=== PATIENT | male | born 1965 | race Caucasian/White ===

== ENCOUNTER 2022-03-14 11:32 | Emergency (ER) | payer OTHER, SELFPAY ==
[2022-03-14 11:53] VITALS: BP 115/89; PULSE 92; RESP 18; TEMP 37.6; O2SAT 96; BMI 24.3
--- NOTE | 2022-03-14 12:19 | CRLHL7_ITS ---
For Patients: As a result of the Century Cures Act, medical imaging exams and procedure reports are released immediately into your electronic medical record. You may view this report before your referring provider. If you have questions, please contact your health care provider. INDICATION: Fever. Previous exam sent (done on 01/18/22) HISTORY: Fever. COMPARISON: 03/04/2022. TECHNIQUE: Chest, 2 views. Findings: Interstitial type opacities have developed when compared with 03/04/2022. This could represent pulmonary edema, or an atypical infectious agent. The patient has a right-sided Port-A-Cath, with its tip at the SVC/RA junction. This should be correlated with any history of chemotherapy administration, and atypical infectious agents should be considered. There is no pneumothorax or deep sulcus sign. Central airway is normal. Biliary stent in the right upper quadrant, with additional catheters in the left upper quadrant. IMPRESSION: Interstitial type opacities in both lungs, new from 03/04/2022. Dictated by Vladislav Vasquez MD @ 03/14/2022 1:07:06 PM Dictated by: Vladislav Vasquez MD @ 03/14/2022 13:07:14 (Electronically Signed)
--- NOTE | 2022-03-14 12:25 | ED_ITS ---
HPI - General Adult General Time Seen by Provider: 12:24 <John Bueno MD - Last Filed: 03/14/22 13:21> Date Seen: 03/14/22 <John Bueno MD - Last Filed: 03/14/22 13:21> Chief complaint: Fever <John Bueno MD - Last Filed: 03/14/22 13:21> Stated complaint: Bronchitis, fever 103 <John Bueno MD - Last Filed: 03/14/22 13:21> Time Seen by Provider: 03/14/22 11:35 <John Bueno MD - Last Filed: 03/14/22 13:21> Source: patient <John Bueno MD - Last Filed: 03/14/22 13:21> Mode of arrival: ambulatory <John Bueno MD - Last Filed: 03/14/22 13:21> Limitations: physical limitation <John Bueno MD - Last Filed: 03/14/22 13:21> History of Present Illness HPI narrative: Patient is a 56-year-old white male 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 He sees [facility]. He last received chemotherapy on a pill either basis about 3 weeks ago, as he has had a fever on and off. He had workup here, including cultures and scanning, and no obvious infectious etiology was found in February. He was placed on Levaquin. He has also been on amoxicillin for a tooth issue. He subsequent the [facility] head CT scanning where they said there was some inflamed nodules in his lungs per the patient is , he was not restarted on antibiotics. He understands that he is in a palliative treatment mode of treatment. He feels weak, short of breath, tired, febrile, and has a cough. He has lost some weight, no chest pain, no leg swelling or clotting history. The patient's past medical history is significant for stage IV pancreatic cancer. <John Bueno MD - Last Filed: 03/14/22 13:21> Related Data Home medications: Home Medications Medication Instructions Recorded Confirmed gabapentin 300 mg capsule mg 03/14/22 hydromorphone 4 mg tablet mg 03/14/22 hwkhse-bbdjobng-pctkfko cap PO 03/14/22 24,000-76,000-120,000 unit capsule,delayed rel (Creon) lorazepam 0.5 mg tablet mg 03/14/22 ondansetron 8 mg disintegrating mg 03/14/22 tablet pantoprazole 40 mg tablet,delayed mg PO 03/14/22 release trazodone 50 mg tablet mg 03/14/22 Previous Rx's Medication Instructions Recorded levofloxacin 750 mg tablet 750 mg PO DAILY 7 Days #7 tab 03/14/22 <John Bueno MD - Last Filed: 03/14/22 13:21> Allergies/adverse reactions: Allergies Allergy/AdvReac Type Severity Reaction Status Date / Time prochlorperazine Allergy Verified 03/14/22 12:00 [From Compazine] <John Bueno MD - Last Filed: 03/14/22 13:21> Review of Systems Status of ROS: Reports: 6 or more systems reviewed and unremarkable except as noted in History and below <John Bueno MD - Last Filed: 03/14/22 13:21> [facility] Social History: Social History Smoking Status: Never smoker Do you use any of these nicotine containing products: Vaping Products and Other How often do you have a drink containing alcohol: never AUDIT-C Alcohol total score: 0 Non-prescribed substance use: denies use <John Bueno MD - Last Filed: 03/14/22 13:21> Exam Narrative: Exam Narrative: The patient has a temperature of 99.6?. Appears noncyanotic, does not appear to be working to breathe. Talks in even and unlabored sentences. O2 sat is 96% on room air HEENT is otherwise unremarkable Neck is supple Chest diminished air exchange bilaterally, he does have some slight wheezes at the bases. Heart rate and rhythm regular without murmur Abdomen benign soft, patient is very thin Extremities are no edema no calf swelling Skin exam is unremarkable, warm and dry <John Bueno MD - Last Filed: 03/14/22 13:21> Const: Vital Signs, click to edit/add: Vital Signs - 24 hr 03/14/22 11:53 03/14/22 13:00 03/14/22 13:30 Temperature 99.6 F 99.1 F Pulse Rate [Pulse Oximeter] 92 87 100 Respiratory Rate 18 Blood Pressure [Ri ght Upper Arm] 115/89 125/83 117/62 Pulse Oximetry 96 93 94 03/14/22 14:00 Temperature 99.6 F Pulse Rate [Pulse Oximeter] 82 Respiratory Rate Blood Pressure [Ri ght Upper Arm] 104/66 Pulse Oximetry 93 <John Bueno MD - Last Filed: 03/14/22 13:21> Vital Signs, click to edit/add: Vital Signs - 24 hr 03/14/22 11:53 03/14/22 13:00 03/14/22 13:30 Temperature 99.6 F 99.1 F Pulse Rate [Pulse Oximeter] 92 87 100 Respiratory Rate 18 Blood Pressure [Ri ght Upper Arm] 115/89 125/83 117/62 Pulse Oximetry 96 93 94 03/14/22 14:00 Temperature 99.6 F Pulse Rate [Pulse Oximeter] 82 Respiratory Rate Blood Pressure [Ri ght Upper Arm] 104/66 Pulse Oximetry 93 <Gerhard Clement MD - Last Filed: 03/14/22 14:08> Course Course Hospital Course: Because of the patient's cancer history, and heme being on chemotherapy last dose about 3 weeks ago, do workup for fever including a chest x-ray, blood cultures, urinalysis, blood work electrolytes. Will give him a dose of Rocephin IV and start oral Levaquin after completing his cultures. Will also check a SARs test. <John Bueno MD - Last Filed: 03/14/22 13:21> Vital Signs Vital signs: Initial Vital Signs Temperature 99.6 F 03/14/22 11:53 Temperature Source Temporal Artery Scan 03/14/22 11:53 Pulse Rate 92 03/14/22 11:53 Pulse Rhythm 03/14/22 11:53 Respiratory Rate 18 03/14/22 11:53 Blood Pressure 115/89 03/14/22 11:53 Blood Pressure Mean 97 03/14/22 11:53 Pulse Oximetry 96 03/14/22 11:53 Oxygen Delivery Method 03/14/22 11:53 Vital Signs Temperature 99.6 F 03/14/22 11:53 Pulse Rate 92 03/14/22 11:53 Respiratory Rate 18 03/14/22 11:53 Blood Pressure 115/89 03/14/22 11:53 Pulse Oximetry 96 03/14/22 11:53 Temperature 99.6 F 03/14/22 14:00 Pulse Rate 82 03/14/22 14:00 Respiratory Rate 18 03/14/22 11:53 Blood Pressure 104/66 03/14/22 14:00 Pulse Oximetry 93 03/14/22 14:00 <John Bueno MD - Last Filed: 03/14/22 13:21> Initial Vital Signs Temperature 99.6 F 03/14/22 11:53 Temperature Source Temporal Artery Scan 03/14/22 11:53 Pulse Rate 92 03/14/22 11:53 Pulse Rhythm 03/14/22 11:53 Respiratory Rate 18 03/14/22 11:53 Blood Pressure 115/89 03/14/22 11:53 Blood Pressure Mean 97 03/14/22 11:53 Pulse Oximetry 96 03/14/22 11:53 Oxygen Delivery Method 03/14/22 11:53 Vital Signs Temperature 99.6 F 03/14/22 11:53 Pulse Rate 92 03/14/22 11:53 Respiratory Rate 18 03/14/22 11:53 Blood Pressure 115/89 03/14/22 11:53 Pulse Oximetry 96 03/14/22 11:53 Temperature 99.6 F 03/14/22 14:00 Pulse Rate 82 03/14/22 14:00 Respiratory Rate 18 03/14/22 11:53 Blood Pressure 104/66 03/14/22 14:00 Pulse Oximetry 93 03/14/22 14:00 <Gerhard Clement MD - Last Filed: 03/14/22 14:08> Medical Decision Making MDM Narrative Medical decision making narrative: Patient is in a very difficult position with his cancer at a stage IV level, certainly some of his fevers and symptomology might be related the cancer itself. Would also want to rule out any infectious etiology that would be treatable, would cover him with Rocephin IV now and followed by [facility]. He needs to update his cancer doctors in the next couple of days. Will hydrate him with some saline as well. He has not appear to be in a lot of pain. Will review the studies today and disposition pending. I am not sure there was a lot to offer this patient in the hospital given he is non hypoxic able to take fluids orally. I do believe that antibiotic coverage until cultures return to be appropriate. And then follow with his doctor. Also concern would be for admitting the patient to the hospital with potential for COVID or other infectious exposure. Addendum: The patient reports that he had a CT scan at [facility] last week and was told that he may have ?bronchitis? verses cancer infiltrate in his lungs, he was not prescribed any medication. At this point his chest x-ray by my read looks like he may have infiltrates but would be more consistent with either metastatic or atypical infection. I think would be appropriate to try a dose of Rocephin and follow that with Levaquin for home for 7 days. Wiliam is not hypoxic and he is able to take oral liquids. He is not in pain. Will prescribe Levaquin for him at home. Follow up with blood cultures with his oncologist or as needed. He has an Oncology appointment to discuss chemo again on of next week. Return sooner problems or concerns. Will have colleague review his lab studies before discharge thanks <John Bueno MD - Last Filed: 03/14/22 13:21> Lab Data Labs: Lab Results 03/14/22 03/14/22 03/14/22 Range/Units 12:32 13:00 13:00 WBC 4.17 L (4.50-11.00) K/uL RBC 3.35 L (4.30-5.90) m/uL Hgb 9.1 L (13.5-17.5) gm/dL Hct 28.0 L (37.0-53.0) % MCV 84 (80-100) fL MCH 27 (26-34) pg MCHC 33 (32-36) gm/dL RDW Coeff of Félix 15.8 H (11.5-15.5) % Plt Count 287 (140-440) K/uL Neut % (Auto) 64.5 (42.0-72.0) % Lymph % (Auto) 9.8 L (20-44) % Canadian % (Auto) 20.6 H (0.0-11.0) % Eos % (Auto) 3.6 (0.0-7.0) % Baso % (Auto) 0.5 (0.0-3.0) % Neut # (Auto) 2.70 (1.7-7.0) K/uL Lymph # (Auto) 0.40 L (0.90-2.90) K/uL Canadian # (Auto) 0.90 (0.00-0.90) K/UL Eos # (Auto) 0.20 (0.00-0.50) K/uL Baso # (Auto) 0.00 (0.00-0.30) K/uL Abs Immat Gran (auto) 0.04 (0.00-0.30) K/uL Sodium 135 (135-149) mmol/L Potassium 3.6 (3.6-5.1) mmol/L Chloride 102 (96-114) mmol/L Carbon Dioxide 28 (20-32) mmol/L BUN 12 (7-30) mg/dL Creatinine 0.7 (0.5-1.5) mg/dL Estimated Creat Clear 112.64 Glucose 99 (60-115) mg/dL Calcium 8.1 L (8.4-10.6) mg/dL Total Bilirubin (0.1-1.5) mg/dL Direct Bilirubin (0.0-0.5) mg/dL AST (12-35) U/L ALT (4-50) U/L Alkaline Phosphatase (40-150) U/L Total Protein (6.0-8.3) g/dL Albumin (3.3-5.0) g/dL Urine Color Yellow (Yellow) Urine Appearance Clear (Clear) Urine pH 6.5 (5.0-8.5) Ur Specific [place] 1.020 (1.000-1.030) Urine Protein Negative (Negative) Urine Glucose (UA) Negative (Negative) Urine Ketones Negative (Negative) Urine Blood Negative (Negative) Urine Nitrite Negative (Negative) Urine Bilirubin Negative (Negative) Urine Urobilinogen 0.2 (0.2-1.0) Ur Leukocyte Esterase Negative (Negative) Urine RBC 0-2 (0-2) Urine WBC 0-2 (0-5) Ur Squamous Epith Cells Few (None-Few) Amorphous Sediment Few A (None) Urine Bacteria Few A (None) Urine Mucus Few A (None) 03/14/22 Range/Units 13:00 WBC (4.50-11.00) K/uL RBC (4.30-5.90) m/uL Hgb (13.5-17.5) gm/dL Hct (37.0-53.0) % MCV (80-100) fL MCH (26-34) pg MCHC (32-36) gm/dL RDW Coeff of Félix (11.5-15.5) % Plt Count (140-440) K/uL Neut % (Auto) (42.0-72.0) % Lymph % (Auto) (20-44) % Canadian % (Auto) (0.0-11.0) % Eos % (Auto) (0.0-7.0) % Baso % (Auto) (0.0-3.0) % Neut # (Auto) (1.7-7.0) K/uL Lymph # (Auto) (0.90-2.90) K/uL Canadian # (Auto) (0.00-0.90) K/UL Eos # (Auto) (0.00-0.50) K/uL Baso # (Auto) (0.00-0.30) K/uL Abs Immat Gran (auto) (0.00-0.30) K/uL Sodium (135-149) mmol/L Potassium (3.6-5.1) mmol/L Chloride (96-114) mmol/L Carbon Dioxide (20-32) mmol/L BUN (7-30) mg/dL Creatinine (0.5-1.5) mg/dL Estimated Creat Clear Glucose (60-115) mg/dL Calcium (8.4-10.6) mg/dL Total Bilirubin 0.5 (0.1-1.5) mg/dL Direct Bilirubin 0.4 (0.0-0.5) mg/dL AST 28 (12-35) U/L ALT 23 (4-50) U/L Alkaline Phosphatase 228 H (40-150) U/L Total Protein 6.0 (6.0-8.3) g/dL Albumin 3.0 L (3.3-5.0) g/dL Urine Color (Yellow) Urine Appearance (Clear) Urine pH (5.0-8.5) Ur Specific [place] (1.000-1.030) Urine Protein (Negative) Urine Glucose (UA) (Negative) Urine Ketones (Negative) Urine Blood (Negative) Urine Nitrite (Negative) Urine Bilirubin (Negative) Urine Urobilinogen (0.2-1.0) Ur Leukocyte Esterase (Negative) Urine RBC (0-2) Urine WBC (0-5) Ur Squamous Epith Cells (None-Few) Amorphous Sediment (None) Urine Bacteria (None) Urine Mucus (None) <John Bueno MD - Last Filed: 03/14/22 13:21> Lab Results 03/14/22 03/14/22 03/14/22 Range/Units 12:32 13:00 13:00 WBC 4.17 L (4.50-11.00) K/uL RBC 3.35 L (4.30-5.90) m/uL Hgb 9.1 L (13.5-17.5) gm/dL Hct 28.0 L (37.0-53.0) % MCV 84 (80-100) fL MCH 27 (26-34) pg MCHC 33 (32-36) gm/dL RDW Coeff of Félix 15.8 H (11.5-15.5) % Plt Count 287 (140-440) K/uL Neut % (Auto) 64.5 (42.0-72.0) % Lymph % (Auto) 9.8 L (20-44) % Canadian % (Auto) 20.6 H (0.0-11.0) % Eos % (Auto) 3.6 (0.0-7.0) % Baso % (Auto) 0.5 (0.0-3.0) % Neut # (Auto) 2.70 (1.7-7.0) K/uL Lymph # (Auto) 0.40 L (0.90-2.90) K/uL Canadian # (Auto) 0.90 (0.00-0.90) K/UL Eos # (Auto) 0.20 (0.00-0.50) K/uL Baso # (Auto) 0.00 (0.00-0.30) K/uL Abs Immat Gran (auto) 0.04 (0.00-0.30) K/uL Sodium 135 (135-149) mmol/L Potassium 3.6 (3.6-5.1) mmol/L Chloride 102 (96-114) mmol/L Carbon Dioxide 28 (20-32) mmol/L BUN 12 (7-30) mg/dL Creatinine 0.7 (0.5-1.5) mg/dL Estimated Creat Clear 112.64 Glucose 99 (60-115) mg/dL Calcium 8.1 L (8.4-10.6) mg/dL Total Bilirubin (0.1-1.5) mg/dL Direct Bilirubin (0.0-0.5) mg/dL AST (12-35) U/L ALT (4-50) U/L Alkaline Phosphatase (40-150) U/L Total Protein (6.0-8.3) g/dL Albumin (3.3-5.0) g/dL Urine Color Yellow (Yellow) Urine Appearance Clear (Clear) Urine pH 6.5 (5.0-8.5) Ur Specific [place] 1.020 (1.000-1.030) Urine Protein Negative (Negative) Urine Glucose (UA) Negative (Negative) Urine Ketones Negative (Negative) Urine Blood Negative (Negative) Urine Nitrite Negative (Negative) Urine Bilirubin Negative (Negative) Urine Urobilinogen 0.2 (0.2-1.0) Ur Leukocyte Esterase Negative (Negative) Urine RBC 0-2 (0-2) Urine WBC 0-2 (0-5) Ur Squamous Epith Cells Few (None-Few) Amorphous Sediment Few A (None) Urine Bacteria Few A (None) Urine Mucus Few A (None) 03/14/22 Range/Units 13:00 WBC (4.50-11.00) K/uL RBC (4.30-5.90) m/uL Hgb (13.5-17.5) gm/dL Hct (37.0-53.0) % MCV (80-100) fL MCH (26-34) pg MCHC (32-36) gm/dL RDW Coeff of Félix (11.5-15.5) % Plt Count (140-440) K/uL Neut % (Auto) (42.0-72.0) % Lymph % (Auto) (20-44) % Canadian % (Auto) (0.0-11.0) % Eos % (Auto) (0.0-7.0) % Baso % (Auto) (0.0-3.0) % Neut # (Auto) (1.7-7.0) K/uL Lymph # (Auto) (0.90-2.90) K/uL Canadian # (Auto) (0.00-0.90) K/UL Eos # (Auto) (0.00-0.50) K/uL Baso # (Auto) (0.00-0.30) K/uL Abs Immat Gran (auto) (0.00-0.30) K/uL Sodium (135-149) mmol/L Potassium (3.6-5.1) mmol/L Chloride (96-114) mmol/L Carbon Dioxide (20-32) mmol/L BUN (7-30) mg/dL Creatinine (0.5-1.5) mg/dL Estimated Creat Clear Glucose (60-115) mg/dL Calcium (8.4-10.6) mg/dL Total Bilirubin 0.5 (0.1-1.5) mg/dL Direct Bilirubin 0.4 (0.0-0.5) mg/dL AST 28 (12-35) U/L ALT 23 (4-50) U/L Alkaline Phosphatase 228 H (40-150) U/L Total Protein 6.0 (6.0-8.3) g/dL Albumin 3.0 L (3.3-5.0) g/dL Urine Color (Yellow) Urine Appearance (Clear) Urine pH (5.0-8.5) Ur Specific [place] (1.000-1.030) Urine Protein (Negative) Urine Glucose (UA) (Negative) Urine Ketones (Negative) Urine Blood (Negative) Urine Nitrite (Negative) Urine Bilirubin (Negative) Urine Urobilinogen (0.2-1.0) Ur Leukocyte Esterase (Negative) Urine RBC (0-2) Urine WBC (0-5) Ur Squamous Epith Cells (None-Few) Amorphous Sediment (None) Urine Bacteria (None) Urine Mucus (None) <Gerhard Clement MD - Last Filed: 03/14/22 14:08> Discharge Plan Discharge Clinical Impression: Fever, Pancreatic cancer <John Bueno MD - Last Filed: 03/14/22 13:21> Patient Disposition: Home w/ Parent or Adult <John Bueno MD - Last Filed: 03/14/22 13:21> Condition: Stable <John Bueno MD - Last Filed: 03/14/22 13:21> Instructions: Pancreatic Cancer (DC) <John Bueno MD - Last Filed: 03/14/22 13:21> Additional Instructions: Rest, fluids, Levaquin daily, appoint with oncologist as scheduled. Recheck as needed sooner than oncology appointment. <John Bueno MD - Last Filed: 03/14/22 13:21> Activity Level: Light activity <John Bueno MD - Last Filed: 03/14/22 13:21> Light activity <Gerhard Clement MD - Last Filed: 03/14/22 14:08> Discharge Diet: Regular <John Bueno MD - Last Filed: 03/14/22 13:21> Regular <Gerhard Clement MD - Last Filed: 03/14/22 14:08> Prescriptions: New levofloxacin 750 mg tablet 750 mg PO DAILY 7 Days Qty: 7 0RF No Action gabapentin 300 mg capsule 0RF hydromorphone 4 mg tablet 0RF trazodone 50 mg tablet 0RF Label Comments: TAKE 1-2 TABLETS BY MOUTH AT BEDTIME. TAKE 50MG DAILY AT BEDTIME FOR ATLEAST 7 DAYS. MAY INCREASE TO 100MG IF NEEDED. ondansetron 8 mg tablet,disintegrating 0RF lorazepam 0.5 mg tablet 0RF pantoprazole 40 mg tablet,delayed release (DR/EC) PO 0RF Label Comments: TAKE 1 TABLET BY MOUTH EVERY MORNING BEFORE BREAKFAST. Creon 24,000-76,000 -120,000 unit capsule,delayed release(DR/EC) PO 0RF Label Comments: TAKE 2 CAPSULES BY MOUTH WITH MEALS AND 1-2 CAPSULES WITH SNACKS <John Bueno MD - Last Filed: 03/14/22 13:21> Stand Alone Forms: MyHealth Info Instructions <John Bueno MD - Last Filed: 03/14/22 13:21> Assessment & Plan Assessment & Plan (1) Fever: Plan: Labs reviewed and are stable. Pt will be discharged to home per Dr. Bueno's instructions. <Gerhard Clement MD - Last Filed: 03/14/22 14:08> Medications: New levofloxacin 750 mg PO DAILY 7 days 7 tabs 0RF <John Bueno MD - Last Filed: 03/14/22 13:21> Patient Instructions: as per previous Plan Detail Assessment: as above <John Bueno MD - Last Filed: 03/14/22 13:21> Time Spent: Please review Coding section regarding the total time spent today in the care of this patient, separate from any independently billable service. Care includes but is not limited to a medically appropriate evaluation and?the?documentation?of?the care?in?the?health?record. <Gerhard Clement MD - Last Filed: 03/14/22 14:08>
[2022-03-14 12:44] LABS: Appearance Urine Clear (Clear); Bilirubin Urine Negative (Negative); Blood Urine Negative (Negative); Color Urine Yellow (Yellow); Glucose Urine Negative (Negative); Ketones Urine Negative (Negative); Leukocyte Esterase Urine Negative (Negative); Nitrite Urine Negative (Negative); Protein Urine Negative (Negative); Urobilinogen Urine 0.2 (0.2-1.0); pH Urine 6.5 (5.0-8.5)
[2022-03-14 13:00] VITALS: BP 125/83; PULSE 87; TEMP 37.3; O2SAT 93
[2022-03-14 13:03] LABS: RBC Urine 0-2 (0-2); WBC Urine 0-2 (0-5)
[2022-03-14 13:04] LABS: Amorphous Sediment Urine Few; Bacteria Urine Few; Mucus Urine Few; Squamous Epithelial Cell Urine Few (None-Few)
[2022-03-14] MEDS: 0.9 % SODIUM CHLORIDE 1000 ml 1,000 ML 6000 ML IV (13:20)
[2022-03-14 13:21] LABS: Basophils Percent Auto 0.5 % (0.0-3.0); Eosinophils Percent Auto 3.6 % (0.0-7.0); Hemoglobin* 9.1 gm/dL (13.5-17.5); Immature Granulocytes Abs Auto 0.04 K/uL (0.00-0.30); Lymphocytes Percent Auto 9.8 % (20-44); Mean Corpuscular HGB Conc 33 gm/dL (32-36); Mean Corpuscular Hemoglobin 27 pg (26-34); Mean Corpuscular Volume 84 fL (80-100); Monocytes Percent Auto 20.6 % (0.0-11.0); Neutrophils Percent Auto 64.5 % (42.0-72.0); Platelet Count* 287 K/uL (140-440); RDW Coefficient of Variation % 15.8 % (11.5-15.5); Red Blood Count 3.35 m/uL (4.30-5.90); White Blood Count* 4.17 K/uL (4.50-11.00)
[2022-03-14] MEDS: cefTRIAXone 1 GM in 0.9 % SODIUM CHLORIDE Mini-bag 100 ML IVPB (13:27)
[2022-03-14 13:30] VITALS: BP 117/62; PULSE 100; O2SAT 94
[2022-03-14] MEDS: levoFLOXacin 750 MG TABLET PO (13:30)
[2022-03-14 13:34] LABS: Slide Review Reflex No
[2022-03-14 13:37] LABS: Chloride* 102 mmol/L (96-114); Sodium* 135 mmol/L (135-149)
[2022-03-14 13:38] LABS: Potassium* 3.6 mmol/L (3.6-5.1)
[2022-03-14 13:39] LABS: Bilirubin Direct* 0.4 mg/dL (0.0-0.5); Bilirubin Total* 0.5 mg/dL (0.1-1.5)
[2022-03-14 13:40] LABS: Alanine Aminotransferase* 23 U/L (4-50); Alkaline Phosphatase* 228 U/L (40-150); Aspartate Amino Transferase* 28 U/L (12-35); Creatinine* 0.7 mg/dL (0.5-1.5); Est. Creatinine Clearance* 112.64; Estimated Glomerular Filt Rate 107.47
[2022-03-14 13:41] LABS: Blood Urea Nitrogen* 12 mg/dL (7-30); Calcium* 8.1 mg/dL (8.4-10.6); Carbon Dioxide* 28 mmol/L (20-32); Glucose* 99 mg/dL (60-115)
[2022-03-14 14:00] VITALS: BP 104/66; PULSE 82; TEMP 37.6; O2SAT 93
[2022-03-14 14:02] LABS: SARS PCR* Negative SARS-CoV-2 (Negative)
[2022-03-14 14:30] VITALS: BP 124/79; PULSE 80; RESP 24; O2SAT 93
[2022-03-14 15:00] VITALS: BP 122/84; PULSE 84; RESP 26; O2SAT 92
[2022-03-14] MEDS: HEPARIN 500 UNIT/5 ML SYRINGE IVF (15:05)
== END 2022-03-14 15:15 ==
PROVIDERS: Emergency Provider Family Medicine
DX: R50.9 Fever, unspecified (principal); C25.3 Malignant neoplasm of pancreatic duct
CPT/HCPCS: 96365; 36415; 71046; 80048; 80076; 81001; 85025; 87040; 87086; 87635; 99282; 99284; A9270; J0696; J1642; J7030

== ENCOUNTER 2022-05-24 12:57 | Outpatient (CLI) | payer OTHER, SELFPAY | END 2022-05-24 12:58 | disposition home or self-care (01) | LOC: AMB 06-07 07:52 | PROVIDERS: Visit Provider Emergency Medicine | DX: M54.9 Dorsalgia, unspecified (principal) | CPT/HCPCS: A0425; A0427 ==

== ENCOUNTER 2022-05-24 13:18 | Emergency (ER) | payer OTHER, SELFPAY ==
[2022-05-24 13:21] VITALS: BP 121/84; PULSE 73; RESP 18; TEMP 36.1; O2SAT 100; BMI 24.5
[2022-05-24] MEDS: LIDOCAINE/PRILOCAINE 2.5-2.5% CREAM 1 APPLIC TOPICAL (13:25)
--- NOTE | 2022-05-24 14:05 | CRLHL7_ITS ---
For Patients: As a result of the Century Cures Act, medical imaging exams and procedure reports are released immediately into your electronic medical record. You may view this report before your referring provider. If you have questions, please contact your health care provider. INDICATION: Right-sided pain. History of pancreatic cancer. COMPARISON: The most recent available study of March 05, 2022 TECHNIQUE: CT examination of the abdomen and pelvis was performed following the uneventful intravenous administration of 79 cc of Isovue 370. Thin section axial images were obtained from the lung bases through the pubic symphysis. Oral contrast was not administered. Please note that all CT scans at this facility use dose modulation, iterative reconstruction, and/or weight-based dosing when appropriate to reduce radiation dose to as low as reasonably achievable. FINDINGS: LUNG BASES: Lung bases appear normal. No pleural effusion.The heart size is normal at the lung bases. LIVER/BILIARY SYSTEM:The liver is normal in size and configuration. There is no focal mass and there is no intra- or extra hepatic biliary ductal dilatation.There is pneumobilia. A stent is seen within the common duct traversing the sphincter bony and ending in the duodenum. This is unchanged in position. The stent appears to be patent. ADRENALS: Normal KIDNEYS, URETERS and BLADDER:The kidneys appear normal without focal mass. There is no definite hydronephrosis or hydroureter. A 2 millimeter calculus is seen at the right ureterovesical junction on series 2, image 129. This was not present previously. SPLEEN:Normal appearance. PANCREAS: Extensive posttreatment changes associated with the pancreas. This is similar to the prior study. There is no measurable macroscopic mass. A stent traverses the pancreatic head. RETROPERITONEUM and MESENTERY: Left gonadal vein embolization as previously noted. GASTROINTESTINAL SYSTEM: There are drainage catheters in the stomach. One of these has flipped up into the EG junction. There appear to terminate in the left flank near the splenic hilus and there is no collection in this area. PELVIS: No mass, adenopathy or free fluid. OSSEOUS STRUCTURES and ABDOMINAL WALL: No destructive process of bone.No significant abdominal wall defect. OTHER: No free fluid or free air. IMPRESSION: 1. There is a 2 millimeter calcified calculus at the right ureterovesical junction which was not present previously. There is no significant hydronephrosis or hydroureter. The kidneys and urinary system are otherwise unremarkable. 2. Unchanged hepatic and pancreatic findings associated with known treated pancreatic cancer. The biliary stent is in place and appears to be patent. Pneumobilia. The appearance is similar to the prior study without a new or progressive finding. 3. Drainage catheter is identified within the stomach which appears to terminate in the left flank near the splenic hilus. There is no collection identified at the terminus of the catheters. One of the catheters has flipped up into the EG junction. It was previously in the corpus. 4. Other nonacute appearing findings as above Please note that all CT scans at this facility use dose modulation, iterative reconstruction, and/or weight-based dosing when appropriate to reduce radiation dose to as low as reasonably achievable. Dictated by Jewel Hernández MD @ 05/24/2022 2:51:07 PM (Electronically Signed)
[2022-05-24 14:34] LABS: Lactate* 0.9 mmol/L (0.5-1.9)
[2022-05-24 14:38] LABS: Appearance Urine Clear (Clear); Bilirubin Urine Negative (Negative); Blood Urine 2+ (Negative); Color Urine Yellow (Yellow); Glucose Urine Negative (Negative); Ketones Urine Negative (Negative); Leukocyte Esterase Urine Negative (Negative); Nitrite Urine Negative (Negative); Protein Urine Negative (Negative); Specific Gravity Urine 1.025 (1.000-1.030); Urobilinogen Urine 0.2 (0.2-1.0)
[2022-05-24 14:42] LABS: Basophils Percent Auto 0.2 % (0.0-3.0); Eosinophils Percent Auto 1.7 % (0.0-7.0); Hematocrit 34.9 % (37.0-53.0); Hemoglobin* 11.2 gm/dL (13.5-17.5); Immature Granulocytes Abs Auto 0.01 K/uL (0.00-0.30); Mean Corpuscular HGB Conc 32 gm/dL (32-36); Mean Corpuscular Hemoglobin 27 pg (26-34); Mean Corpuscular Volume 85 fL (80-100); Monocytes Percent Auto 3.7 % (0.0-11.0); Neutrophils Percent Auto 85.2 % (42.0-72.0); Platelet Count* 173 K/uL (140-440); RDW Coefficient of Variation % 18.1 % (11.5-15.5); White Blood Count* 4.02 K/uL (4.50-11.00)
[2022-05-24 14:46] LABS: Slide Review Reflex No
[2022-05-24] MEDS: HYDROmorphone 0.5 mg/0.5 ml inj IVP (14:48)
[2022-05-24] MEDS: ONDANSETRON 2 MG/ML inj 4 MG IVP (14:48)
[2022-05-24 14:49] LABS: Bacteria Urine Few; Mucus Urine Moderate; RBC Urine 25-50 (0-2); Squamous Epithelial Cell Urine Few (None-Few)
[2022-05-24 14:52] VITALS: O2SAT 100
[2022-05-24 14:53] LABS: Chloride* 103 mmol/L (96-114)
[2022-05-24 14:54] LABS: Albumin* 4.1 g/dL (3.3-5.0); Sodium* 135 mmol/L (135-149)
[2022-05-24 14:57] LABS: Alkaline Phosphatase* 262 U/L (40-150); Aspartate Amino Transferase* 29 U/L (12-35); Bilirubin Direct* 0.3 mg/dL (0.0-0.5); Bilirubin Total* 0.4 mg/dL (0.1-1.5); Carbon Dioxide* 25 mmol/L (20-32); Creatinine* 0.8 mg/dL (0.5-1.5); Est. Creatinine Clearance* 97.38; Estimated Glomerular Filt Rate 103 ml/min; Total Protein* 7.7 g/dL (6.0-8.3)
[2022-05-24 14:58] LABS: Alanine Aminotransferase* 34 U/L (4-50); Blood Urea Nitrogen* 18 mg/dL (7-30); Calcium* 8.6 mg/dL (8.4-10.6); Glucose* 106 mg/dL (60-115)
[2022-05-24 15:00] LABS: C Reactive Protein* 0.5 mg/dL (0.5-1.0)
[2022-05-24 15:08] LABS: Lipase* < 10 U/L (23-300)
[2022-05-24 16:00] VITALS: BP 114/74
--- NOTE | 2022-05-24 16:57 | ED.GENADULT ---
HPI - General Adult General Date Seen: 05/24/22 Chief complaint: Back Injury/Pain Stated complaint: Lower Back Pain Time Seen by Provider: 05/24/22 13:37 Source: patient History of Present Illness HPI narrative: Patient is a 57 year old male with underlying stage IV pancreatic cancer. He had sudden onset of severe right flank pain well at home this afternoon. He says he was just sitting down when this started. He says it was severe at onset and then became more more severe to the point that he vomited a couple of times. He called his and then came in by EMS. They gave him pain medication and it settle down quite a bit. He is comfortable now but says it is still there in the background. His nausea has settled down as well. He denies any urinary symptoms such as hematuria or dysuria, he does note that he has a remote history of kidney stones. He is worried that this might represent bony mets from his pancreatic cancer, but does say that he has had routine surveillance at [facility] for his cancer and does not know of any bony mets. He denies chest pain or difficulty breathing. He has not had fevers. Until this pain started he had been feeling in his usual state of health. He is on an investigational drug per [facility] and says that his cancer has been stable. Related Data Home Medications Medication Instructions Recorded Confirmed gabapentin 300 mg capsule mg 03/14/22 hydromorphone 4 mg tablet mg 03/14/22 [id number] cap PO 03/14/22 24,000-76,000-120,000 unit capsule,delayed rel (Creon) lorazepam 0.5 mg tablet mg 03/14/22 ondansetron 8 mg disintegrating mg 03/14/22 tablet pantoprazole 40 mg tablet,delayed mg PO 03/14/22 release trazodone 50 mg tablet mg 03/14/22 Previous Rx's Medication Instructions Recorded levofloxacin 750 mg tablet 750 mg PO DAILY 7 days #7 tabs 03/14/22 Allergies Allergy/AdvReac Type Severity Reaction Status Date / Time prochlorperazine Allergy Verified 05/24/22 14:35 [From Compazine] Review of Systems Status of ROS: Reports: 10 or more systems reviewed and unremarkable except as noted in History and below PFSH PFSH Social History Smoking Status: Never smoker Do you use any of these nicotine containing products: None, Vaping Products and Other Second hand tobacco smoke exposure: No How often do you have a drink containing alcohol: never AUDIT-C Alcohol total score: 0 Non-prescribed substance use: denies use Exam Narrative: Exam Narrative: Vital signs as noted above. In general, an alert, thin in somewhat fatigued-appearing male, looks comfortable. Head: Normocephalic, atraumatic. Eyes: Pupils are equal reactive. Extraocular movements are full. Conjunctivae are normal. ENT: Mucous membranes are moist. Throat is normal. Neck: Supple without lymphadenopathy. Heart: Regular rate and rhythm. No murmur or rub. Lungs: Clear bilaterally. No increased work of breathing, crackles or wheezes. Back: Nontender to palpation. Abdomen: Soft and nontender. Extremities: Well perfused. No edema. No calf tenderness. Pulses intact. Neurologic: Patient is alert and oriented to person and place. Speech is fluent. Face is symmetric. Moves all extremities equally. Affect: Normal. Skin: Warm and dry. Well perfused. Const: Vital Signs, click to edit/add: Vital Signs - 24 hr 05/24/22 13:21 05/24/22 14:52 Temperature 96.9 F L Pulse Rate [Right Pulse Oximeter] 73 Respiratory Rate 18 Blood Pressure [Ri ght Upper Arm] 121/84 Pulse Oximetry 100 100 Oxygen Delivery Me thod Room Air Course Course Hospital Course: Patient was reasonably comfortable when I 1st saw him, but did require more pain medication a little while later. We accessed his port and he had Dilaudid as well as Zofran. He remained comfortable throughout the rest of his ER stay. I did order labs, I looked at his CT scan from February of this year, at that time he did not have any kidney stones in either kidney, and therefore I elected to do a CT scan with contrast thinking that it was relatively unlikely his symptoms were due to kidney stones since he did not have any at that time. Other considerations included complications related to his pancreatic cancer, pancreatic stent, perforated viscus, bowel obstruction, musculoskeletal pain, aortic pathology. His labs were really pretty unremarkable. His white blood cell count is a tiny bit low at 4, hemoglobin is 11.2, platelets are normal. Electrolytes are entirely within normal limits, BUN creatinine are normal and LFTs are normal with the exception of an alk phos of 262. CRP was 0.5, lipase was less than 10. Urinalysis was notable for 2+ blood and 25-50 white blood cells, and review of his CT scan by my review showed a 2 mm stone at the UVJ on the right. No significant hydronephrosis. Final read from the radiologist of his CT scan likewise notes a 2 mm stone at the right UVJ as well as the following findings:IMPRESSION: 1. There is a 2 millimeter calcified calculus at the right ureterovesical junction which was not present previously. There is no significant hydronephrosis or hydroureter. The kidneys and urinary system are otherwise unremarkable. 2. Unchanged hepatic and pancreatic findings associated with known treated pancreatic cancer. The biliary stent is in place and appears to be patent. Pneumobilia. The appearance is similar to the prior study without a new or progressive finding. 3. Drainage catheter is identified within the stomach which appears to terminate in the left flank near the splenic hilus. There is no collection identified at the terminus of the catheters. One of the catheters has flipped up into the EG junction. It was previously in the corpus. 4. Other nonacute appearing findings as above I have discussed all this with the patient. He is relieved that his pain is not related to his cancer. At this time I think it is reasonable to let him go. He says he can take ibuprofen so I have encouraged him to take a couple of doses of ibuprofen a day and then used his Dilaudid which he has early prescribed for cancer related reasons as needed for uncontrolled pain. This stone is small and I would anticipate it will pass on its own, but if he has severe uncontrolled pain, fever, or other new symptoms return to the emergency department. Strain urine, push fluids. Vital Signs Vital signs: Initial Vital Signs Temperature 96.9 F L 05/24/22 13:21 Temperature Source Temporal Artery Scan 05/24/22 13:21 Pulse Rate 73 05/24/22 13:21 Respiratory Rate 18 05/24/22 13:21 Blood Pressure 121/84 05/24/22 13:21 Blood Pressure Mean 96 05/24/22 13:21 Blood Pressure Position Sitting 05/24/22 13:21 Pulse Oximetry 100 05/24/22 13:21 Oxygen Delivery Method 05/24/22 13:21 Vital Signs Temperature 96.9 F L 05/24/22 13:21 Pulse Rate 73 05/24/22 13:21 Respiratory Rate 18 05/24/22 13:21 Blood Pressure 121/84 05/24/22 13:21 Pulse Oximetry 100 05/24/22 13:21 Oxygen Delivery Method 05/24/22 13:21 Temperature 96.9 F L 05/24/22 13:21 Pulse Rate 73 05/24/22 13:21 Respiratory Rate 18 05/24/22 13:21 Blood Pressure 121/84 05/24/22 13:21 Pulse Oximetry 100 05/24/22 14:52 Oxygen Delivery Method 05/24/22 13:21 Medical Decision Making Lab Data Labs: Lab Results 05/24/22 05/24/22 05/24/22 Range/Units 14:10 14:23 14:23 WBC 4.02 L (4.50-11.00) K/uL RBC 4.10 L (4.30-5.90) m/uL Hgb 11.2 L (13.5-17.5) gm/dL Hct 34.9 L (37.0-53.0) % MCV 85 (80-100) fL MCH 27 (26-34) pg MCHC 32 (32-36) gm/dL RDW Coeff of Félix 18.1 H (11.5-15.5) % Plt Count 173 (140-440) K/uL Neut % (Auto) 85.2 H (42.0-72.0) % Lymph % (Auto) 9.0 L (20-44) % [place] % (Auto) 3.7 (0.0-11.0) % Eos % (Auto) 1.7 (0.0-7.0) % Baso % (Auto) 0.2 (0.0-3.0) % Neut # (Auto) 3.40 (1.7-7.0) K/uL Lymph # (Auto) 0.40 L (0.90-2.90) K/uL [place] # (Auto) 0.10 (0.00-0.90) K/UL Eos # (Auto) 0.10 (0.00-0.50) K/uL Baso # (Auto) 0.00 (0.00-0.30) K/uL Abs Immat Gran (auto) 0.01 (0.00-0.30) K/uL Sodium 135 (135-149) mmol/L Potassium 4.0 (3.6-5.1) mmol/L Chloride 103 (96-114) mmol/L Carbon Dioxide 25 (20-32) mmol/L BUN 18 (7-30) mg/dL Creatinine 0.8 (0.5-1.5) mg/dL Estimated Creat Clear 97.38 Estimated GFR 103 ml/min Glucose 106 (60-115) mg/dL Lactate (0.5-1.9) mmol/L Calcium 8.6 (8.4-10.6) mg/dL Total Bilirubin 0.4 (0.1-1.5) mg/dL Direct Bilirubin 0.3 (0.0-0.5) mg/dL AST 29 (12-35) U/L ALT 34 (4-50) U/L Alkaline Phosphatase 262 H (40-150) U/L C-Reactive Protein 0.5 (0.5-1.0) mg/dL Total Protein 7.7 (6.0-8.3) g/dL Albumin 4.1 (3.3-5.0) g/dL Lipase < 10 L (23-300) U/L Urine Color Yellow (Yellow) Urine Appearance Clear (Clear) Urine pH 6.0 (5.0-8.5) Ur Specific [place] 1.025 (1.000-1.030) Urine Protein Negative (Negative) Urine Glucose (UA) Negative (Negative) Urine Ketones Negative (Negative) Urine Blood 2+ A (Negative) Urine Nitrite Negative (Negative) Urine Bilirubin Negative (Negative) Urine Urobilinogen 0.2 (0.2-1.0) Ur Leukocyte Esterase Negative (Negative) Urine RBC 25-50 A (0-2) Urine WBC 2-5 (0-5) Ur Squamous Epith Cells Few (None-Few) Urine Bacteria Few A (None) Urine Mucus Moderate A (None) 05/24/22 Range/Units 14:23 WBC (4.50-11.00) K/uL RBC (4.30-5.90) m/uL Hgb (13.5-17.5) gm/dL Hct (37.0-53.0) % MCV (80-100) fL MCH (26-34) pg MCHC (32-36) gm/dL RDW Coeff of Félix (11.5-15.5) % Plt Count (140-440) K/uL Neut % (Auto) (42.0-72.0) % Lymph % (Auto) (20-44) % [place] % (Auto) (0.0-11.0) % Eos % (Auto) (0.0-7.0) % Baso % (Auto) (0.0-3.0) % Neut # (Auto) (1.7-7.0) K/uL Lymph # (Auto) (0.90-2.90) K/uL [place] # (Auto) (0.00-0.90) K/UL Eos # (Auto) (0.00-0.50) K/uL Baso # (Auto) (0.00-0.30) K/uL Abs Immat Gran (auto) (0.00-0.30) K/uL Sodium (135-149) mmol/L Potassium (3.6-5.1) mmol/L Chloride (96-114) mmol/L Carbon Dioxide (20-32) mmol/L BUN (7-30) mg/dL Creatinine (0.5-1.5) mg/dL Estimated Creat Clear Estimated GFR ml/min Glucose (60-115) mg/dL Lactate 0.9 (0.5-1.9) mmol/L Calcium (8.4-10.6) mg/dL Total Bilirubin (0.1-1.5) mg/dL Direct Bilirubin (0.0-0.5) mg/dL AST (12-35) U/L ALT (4-50) U/L Alkaline Phosphatase (40-150) U/L C-Reactive Protein (0.5-1.0) mg/dL Total Protein (6.0-8.3) g/dL Albumin (3.3-5.0) g/dL Lipase (23-300) U/L Urine Color (Yellow) Urine Appearance (Clear) Urine pH (5.0-8.5) Ur Specific [place] (1.000-1.030) Urine Protein (Negative) Urine Glucose (UA) (Negative) Urine Ketones (Negative) Urine Blood (Negative) Urine Nitrite (Negative) Urine Bilirubin (Negative) Urine Urobilinogen (0.2-1.0) Ur Leukocyte Esterase (Negative) Urine RBC (0-2) Urine WBC (0-5) Ur Squamous Epith Cells (None-Few) Urine Bacteria (None) Urine Mucus (None) Discharge Plan Discharge Clinical Impression: Kidney stone on right side Patient Disposition: Home, Self-Care Condition: Improved Instructions: Kidney Stones (ED) Additional Instructions: Push fluids, strain urine. Ibuprofen or Dilaudid on as needed at for pain. Stone is 2 mm and should past in the next few days without difficulty. If you are having severe persistent pain, or new symptoms such as fever, return to the emergency department. Prescriptions: No Action gabapentin 300 mg capsule hydromorphone 4 mg tablet trazodone 50 mg tablet Label Comments: TAKE 1-2 TABLETS BY MOUTH AT BEDTIME. TAKE 50MG DAILY AT BEDTIME FOR ATLEAST 7 DAYS. MAY INCREASE TO 100MG IF NEEDED. ondansetron 8 mg tablet,disintegrating lorazepam 0.5 mg tablet pantoprazole 40 mg tablet,delayed release (DR/EC) PO Label Comments: TAKE 1 TABLET BY MOUTH EVERY MORNING BEFORE BREAKFAST. Creon 24,000-76,000 -120,000 unit capsule,delayed release(DR/EC) PO Label Comments: TAKE 2 CAPSULES BY MOUTH WITH MEALS AND 1-2 CAPSULES WITH SNACKS levofloxacin 750 mg tablet 750 mg PO DAILY 7 Days Qty: 7 0RF Follow Up/Referrals: Provider,Not a Local [Primary Care Provider] - Stand Alone Forms: [facility] Info Instructions
[2022-05-24 17:08] VITALS: BP 117/66
== END 2022-05-24 17:08 | disposition home or self-care (01) ==
PROVIDERS: Emergency Provider Emergency Medicine
DX: N20.0 Calculus of kidney (principal); Z87.442 Personal history of urinary calculi
CPT/HCPCS: 36415; 74177; 80048; 80076; 81001; 83605; 83690; 85025; 86140; 87086; 94761; 96374; 96375; 99284; J1170; J2405; Q9967

== ENCOUNTER 2022-06-18 14:35 | Emergency (ER) | payer OTHER, SELFPAY ==
[2022-06-18] VITALS (25 sets, daily range): BP systolic 100–125; BP diastolic 68–84; PULSE 71–83; RESP 18; TEMP 35.9; O2SAT 96–100; BMI 24.5
--- NOTE | 2022-06-18 14:56 | ED.GENADULT ---
HPI - General Adult General Time Seen by Provider: 14:45 Date Seen: 06/18/22 Chief complaint: Back Injury/Pain Stated complaint: Back pain Time Seen by Provider: 06/18/22 14:37 Source: patient, RN notes reviewed and other (Received phone call from [place]) Mode of arrival: ambulatory Limitations: no limitations History of Present Illness HPI narrative: Patient is a 57-year-old male with known metastatic pancreatic cancer followed by [facility] coming in with back pain. I received a call from Lianne whom I presume was a mid-level covering the heme Onc service. This patient had called in with having increasing back pain. She spoke with Dr. Vladislav Zarco his oncologist whom recommended the patient come into our ER for neuro imaging. I reviewed over the phone with Rachel that we did not have MRI capabilities after hours and on weekends. We certainly do not have the ability at this time to do an MRI of his spine. She stated he would have to drive an hour and a half in the car to get down there. I reviewed with her that she should call him back, let him know that we could not do an MRI but we were happy to see and evaluate him. I did discuss with severe I do have concerns about the feasibility of transferring. [place] has been on divert most often when we have called this past week when I have been working. We are certainly happy to evaluate the patient here however. Patient reports his back pain started last Monday. He actually had been on the L pine slide at [facility] and was quite bumpy. His pain started after then. It worsens with sitting up. There is no respiratory component to this that he is noted. He does not note that it increases with breathing. He does have some baseline back pain but it is certainly worse. As I was talking to him he stated it was coming back and he pointed to an area along his left lower posterior rib cage/chest wall. There was not point tenderness and it was not something that was reproducibly tender on palpation. He has noted no fevers. He has noted no nausea or vomiting. No diarrhea. He transit toward constipation with his bowels due to his Dilaudid use. He tries to minimize this. He states they sent his last prescription of Dilaudid to [facility] pharmacy at [facility] rather than to his local pharmacy. He used his last 4 mg Dilaudid tablet this morning. He tries to not use the medicine, his typically just been taking one 4 mg tablet in the morning. He is not having any pain into his legs, no numbness tingling weakness, no bowel or bladder loss of control. He is not known to have any metastatic lesions to his spine to date. His notes he has never had any imaging of his spine to date. He was able to pull up his labs for me and he did have a normal creatinine of 0.88 on June 15. Overall, he feels a band from his mid thoracic back area at down to mid lumbar area where this pain is going throughout his back. Related Data Home Medications Medication Instructions Recorded Confirmed gabapentin 300 mg capsule mg 03/14/22 hydromorphone 4 mg tablet mg 03/14/22 tutlay-[id number]-[id number] cap PO 03/14/22 24,000-76,000-120,000 unit capsule,delayed rel (Creon) lorazepam 0.5 mg tablet mg 03/14/22 ondansetron 8 mg disintegrating mg 03/14/22 tablet pantoprazole 40 mg tablet,delayed mg PO 03/14/22 release trazodone 50 mg tablet mg 03/14/22 Previous Rx's Medication Instructions Recorded levofloxacin 750 mg tablet 750 mg PO DAILY 7 days #7 tabs 03/14/22 hydromorphone 4 mg tablet 4 mg PO Q6H PRN pain #4 tabs 06/18/22 (Dilaudid) Allergies Allergy/AdvReac Type Severity Reaction Status Date / Time prochlorperazine Allergy Verified 05/24/22 14:35 [From Compazine] Review of Systems Status of ROS: Reports: 10 or more systems reviewed and unremarkable except as noted in History and below [facility] Social History Smoking Status: Never smoker Do you use any of these nicotine containing products: None, Vaping Products and Other Second hand tobacco smoke exposure: No How often do you have a drink containing alcohol: never AUDIT-C Alcohol total score: 0 Non-prescribed substance use: denies use Exam Const: Vital Signs, click to edit/add: Vital Signs - 24 hr 06/18/22 14:42 06/18/22 14:56 06/18/22 16:04 Temperature 96.7 F L Pulse Rate 73 Pulse Rate [Right Pulse Oximeter] 79 Respiratory Rate 18 Blood Pressure Blood Pressure [Ri ght Upper Arm] 119/75 Pulse Oximetry 100 99 98 Oxygen Delivery Me thod Room Air 06/18/22 16:05 06/18/22 16:06 06/18/22 16:15 Temperature Pulse Rate 72 74 74 Pulse Rate [Right Pulse Oximeter] Respiratory Rate Blood Pressure 110/83 Blood Pressure [Ri ght Upper Arm] Pulse Oximetry 99 98 99 Oxygen Delivery Me thod 06/18/22 16:30 06/18/22 16:31 06/18/22 16:45 Temperature Pulse Rate 75 78 76 Pulse Rate [Right Pulse Oximeter] Respiratory Rate Blood Pressure 105/75 Blood Pressure [Ri ght Upper Arm] Pulse Oximetry 98 97 98 Oxygen Delivery Me thod 06/18/22 17:00 06/18/22 17:01 06/18/22 17:02 Temperature Pulse Rate 77 75 75 Pulse Rate [Right Pulse Oximeter] Respiratory Rate Blood Pressure 124/84 Blood Pressure [Ri ght Upper Arm] Pulse Oximetry 98 99 99 Oxygen Delivery Me thod 06/18/22 17:15 06/18/22 17:30 06/18/22 17:31 Temperature Pulse Rate 74 74 73 Pulse Rate [Right Pulse Oximeter] Respiratory Rate Blood Pressure 125/81 Blood Pressure [Ri ght Upper Arm] Pulse Oximetry 99 99 100 Oxygen Delivery Me thod 06/18/22 17:45 06/18/22 18:00 06/18/22 18:01 Temperature Pulse Rate 74 74 75 Pulse Rate [Right Pulse Oximeter] Respiratory Rate Blood Pressure 100/70 Blood Pressure [Ri ght Upper Arm] Pulse Oximetry 99 98 98 Oxygen Delivery Me thod 06/18/22 18:15 Temperature Pulse Rate 71 Pulse Rate [Right Pulse Oximeter] Respiratory Rate Blood Pressure Blood Pressure [Ri ght Upper Arm] Pulse Oximetry 96 Oxygen Delivery Me thod Watch the patient ambulate into room 7, had a normal gait, looked like he was ambulating quite easily. Documenting provider has reviewed patient's vital signs: yes Common normals: no apparent distress, average body habitus, oriented x3, no limitations, healthy appearing, alert and well nourished General appearance: cooperative, comfortable and well kempt Nutritional appearance: thin HENMT: Common normals: normocephalic, head/scalp atraumatic and hearing grossly normal bilaterally Head and scalp: normocephalic and atraumatic Eye: Common normals: PERRL, EOMs intact bilaterally, conjunctivae normal and no scleral icterus Conjunctiva: conjunctiva(e) normal Pupil: PERRL Neck & C-Spine: Common normals: full ROM, no lymphadenopathy, supple, no meningeal signs, no JVD and thyroid normal Thyroid: thyroid normal Chest: Common normals: inspection of chest normal and palpation of chest normal Resp: Common normals: normal respiratory effort, no retractions, no use of accessory muscles and clear to auscultation bilaterally Auscultation: clear to auscultation bilaterally Cardio: Common normals: no JVD, regular rate, regular rhythm, S1 normal heart sound, S2 normal heart sound, no gallops, no clicks, no murmurs and no rub Rate: regular rate Rhythm: regular rhythm Heart sounds: S1 normal and S2 normal Other: Port in right upper chest wall. GI: Common normals: Normal to inspection, nondistended, normoactive bowel sounds present, soft to palpation, no hepatosplenomegaly and no masses Palpation: soft, tender (Mild epigastric tenderness without rebound or guarding ) and no hepatosplenomegaly Back & Pelvis: Common normals: thoracic and lumbar spine normal to inspection, no thoracic nor lumbar tenderness, thoraco-lumbar ROM normal and straight leg raise negative bilaterally Extremity: Common normals: normal to inspection, full ROM, normal capillary refill, no joint enlargement, no clubbing, cyanosis or edema, no calf tenderness and no pedal edema Neuro: Common normals: oriented x3, moves all extremities, no focal motor deficits, no sensory deficits noted and gait normal Sensorium/orientation: alert Meningeal signs: no meningeal signs Speech: speech normal Psych: Appearance: well kempt Course Course Hospital Course: We will access his port, he has numbing medicine on currently. Will obtain blood work. We will order maintenance fluids to keep his port open, will give him 0.5 mg IV Dilaudid for pain control. We will be doing imaging. I have reviewed with him I do not have the capability to do an MRI but I think given his history that CT scan at this time should be adequate to start. I do think we should do chest abdomen pelvis CT with IV contrast looking at his pancreas. It is possible that he could be getting increasing pain from his pancreatic cancer with referred pain out into the back. Also, given that he went on this elbow pain slide, there could be a traumatic component here. Will reconstruct his lumbar and thoracic spines off the CT. He may still need to get MRI imaging of his spine if there is further concern but at this time I do not think it is emergently necessary. Reevaluation(s) Reevaluation #1: Patient's pain is reportedly returning. Will order another dose of Dilaudid, 0.5 mg IV. Upon review of his CBC, do think we should also do COVID testing. This could be due to part of his oncology process but COVID could give him significant myalgias. Time: 16:24 Reevaluation #2: Have reviewed with patient that there is nothing acute on his CT scans. We did review that MRI imaging certainly would be more sensitive to things within the marrow as I had discussed with the radiologist. He is hoping that his oncologists will potentially give him an MRI this week if need be. I do think this is reasonable. I have asked Radiology to send is images to [place]. Time: 18:52 Vital Signs Vital signs: Initial Vital Signs Temperature 96.7 F L 06/18/22 14:42 Temperature Source Temporal Artery Scan 06/18/22 14:42 Pulse Rate 79 06/18/22 14:42 Respiratory Rate 18 06/18/22 14:42 Blood Pressure 119/75 06/18/22 14:42 Blood Pressure Mean 89 06/18/22 14:42 Blood Pressure Position Sitting 06/18/22 14:42 Pulse Oximetry 100 06/18/22 14:42 Oxygen Delivery Method 06/18/22 14:42 Vital Signs Temperature 96.7 F L 06/18/22 14:42 Pulse Rate 79 06/18/22 14:42 Respiratory Rate 18 06/18/22 14:42 Blood Pressure 119/75 06/18/22 14:42 Pulse Oximetry 100 06/18/22 14:42 Oxygen Delivery Method 06/18/22 14:42 Temperature 96.7 F L 06/18/22 14:42 Pulse Rate 71 06/18/22 18:15 Respiratory Rate 18 06/18/22 14:42 Blood Pressure 100/70 06/18/22 18:01 Pulse Oximetry 96 06/18/22 18:15 Oxygen Delivery Method 06/18/22 14:42 Medical Decision Making Lab Data Labs: Lab Results 06/18/22 06/18/22 06/18/22 Range/Units 15:20 15:20 16:09 WBC 3.87 L (4.50-11.00) K/uL RBC 3.98 L (4.30-5.90) m/uL Hgb 10.9 L (13.5-17.5) gm/dL Hct 34.1 L (37.0-53.0) % MCV 86 (80-100) fL MCH 27 (26-34) pg MCHC 32 (32-36) gm/dL RDW Coeff of Félxi 16.6 H (11.5-15.5) % Plt Count 165 (140-440) K/uL Neut % (Auto) 78.1 H (42.0-72.0) % Lymph % (Auto) 13.7 L (20-44) % Branch % (Auto) 2.8 (0.0-11.0) % Eos % (Auto) 4.4 (0.0-7.0) % Baso % (Auto) 0.5 (0.0-3.0) % Neut # (Auto) 3.00 (1.7-7.0) K/uL Lymph # (Auto) 0.50 L (0.90-2.90) K/uL Branch # (Auto) 0.10 (0.00-0.90) K/UL Eos # (Auto) 0.20 (0.00-0.50) K/uL Baso # (Auto) 0.00 (0.00-0.30) K/uL Abs Immat Gran (auto) 0.02 (0.00-0.30) K/uL Sodium 137 (135-149) mmol/L Potassium 4.0 (3.6-5.1) mmol/L Chloride 102 (96-114) mmol/L Carbon Dioxide 28 (20-32) mmol/L BUN 15 (7-30) mg/dL Creatinine 0.7 (0.5-1.5) mg/dL Estimated Creat Clear 111.29 Estimated GFR 107 ml/min Glucose 85 (60-115) mg/dL Calcium 8.9 (8.4-10.6) mg/dL Total Bilirubin 0.7 (0.1-1.5) mg/dL AST 107 H (12-35) U/L ALT 85 H (4-50) U/L Alkaline Phosphatase 394 H (40-150) U/L C-Reactive Protein 3.6 H (0.5-1.0) mg/dL Total Protein 7.5 (6.0-8.3) g/dL Albumin 4.0 (3.3-5.0) g/dL Lipase < 10 L (23-300) U/L SARS-CoV-2 (PCR) Negative SARS-CoV-2 (Negative) Imaging Data CT Chest/Ab/Pelvis: Attestation: I have reviewed the pertinent imaging results. Radiologist's impression: Patient: EDNA KAISER Facility:?[facility] Patient ID:?[id number] :?1965 Study:?CT Chest/Abd/Pelvis W/ISOVUE 370 79CC-06/18/2022 4:20:00 PM Ordering Physician:?Freda Crawford Final Report: INDICATION: Severe back pain. Deep abdominal pain TECHNIQUE: CT chest, abdomen and pelvis acquired with 370 cc Isovue IV contrast. Limited evaluation secondary to no coronal/sagittal reformats. COMPARISON: CT abdomen/pelvis performed May 24, 2022. CT chest performed August 12, 2020. FINDINGS: CHEST: Cardiovascular structures: Heart size is normal. Thoracic aorta and main pulmonary artery are normal in caliber. No central PE. Mediastinum and adrienne: No mass or adenopathy. Lungs and pleura: Re- demonstration of few scattered sub 4 millimeter pulmonary nodules, including right upper lobe nodule (series 3, image 18), unchanged since August 12, 2020. No pneumothoraces or pleural effusions. Chest wall and axilla: No mass or adenopathy. Right chest wall port with catheter terminating in the superior cavoatrial junction. Bones: No suspicious bone lesions. Unremarkable for age. ABDOMEN AND PELVIS: Liver: Indeterminate segment 6 hyperdensity. Similar ill-defined 2.3 centimeter segment 7 hypodensity (series 2, image 152). Gallbladder and bile ducts: Re- demonstration of stent in the distal common bile with pneumobilia, greatest in the left hepatic lobe. Persistent mild intrahepatic ductal dilation. Pancreas: Atrophic pancreatic body/tail with prominent ductal dilation and ill-defined known pancreatic head mass. Spleen: Unremarkable. Adrenal glands: Unremarkable. Kidneys: Unremarkable. GI tract: Similar drainage catheter in the stomach which terminates in the left flank near the splenic hilum. No bowel obstruction. Vascular structures: SMV stent. Left gonadal vein embolization. No abdominal aortic aneurysm. Lymph nodes: Unremarkable. Miscellaneous: Unremarkable. No free air or significant free fluid. Pelvic Organs: Mildly distended bladder. Bones: Stable T7 vertebral body lucency. Degenerative changes of the osseous structures, including the spine. Please refer to same-day CT thoracic/lumbar spine for further evaluation. IMPRESSION: Limited evaluation secondary to no coronal/sagittal reformats. No acute intrathoracic, intra-abdominal/pelvic abnormality. Subtle ill-defined 2.3 centimeter segment 7 hypodensity. Recommend correlation with prior imaging and/or follow up with outpatient contrast enhanced MRI if medically necessary. Overall, similar scattered sub 4 millimeter pulmonary nodules. Recommend close attention on subsequent surveillance imaging. Otherwise, unchanged hepatic and pancreatic findings associated with known treated pancreatic cancer. Case discussed with Yvette Davis at 4:37 P.M on 06/18/22. Please note that all CT scans at this facility use dose modulation, iterative reconstruction, and/or weight-based dosing when appropriate to reduce radiation dose to as low as reasonably achievable. Dictated by Jaiden Canales MD @ 06/18/2022 5:34:43 PM (Electronic Signature) CT lumbar spine: Attestation: I have reviewed the pertinent imaging results. Radiologist's impression: Patient: EDNA KAIS[facility] Facility:?[facility] Patient ID:?[id number]?1965 Study:?CT Spine Lumbar -06/18/2022 4:21:05 PM Ordering Physician:Asael Crawford Final Report: INDICATION: Back pain. TECHNIQUE: CT lumbar spine without contrast. COMPARISON: May 24, 2022. FINDINGS: Vertebrae: Alignment is normal. There are no fractures or suspicious bony lesions. Discs and facet joints: Disc spaces and facets are within normal limits. Mild degenerative changes. Extraspinal findings: Please refer to same-day CT chest, abdomen, pelvis for further evaluation. IMPRESSION: Unremarkable lumbar spine CT. Please note that all CT scans at this facility use dose modulation, iterative reconstruction, and/or weight-based dosing when appropriate to reduce radiation dose to as low as reasonably achievable. Dictated by Jaiden Canales MD @ 06/18/2022 5:45:[address] thoracic spine: Attestation: I have reviewed the pertinent imaging results. Radiologist's impression: Patient: EDNA KAIS[facility] Facility:?[facility] Patient ID:?[id number]?1965 Study:?CT Spine Thoracic -06/18/2022 4:21:57 PM Ordering Physician:Asael Crawford Final Report: INDICATION: Back pain. TECHNIQUE: CT thoracic spine without contrast. COMPARISON: CT chest performed August 12, 2020.. FINDINGS: Vertebrae: Alignment is normal. There are no fractures or suspicious bony lesions. Stable T7 lucency, possibly vertebral body meningioma. Discs and facet joints: Disc spaces and facets are within normal limits. Mild degenerative changes. Extraspinal findings: Please refer to same-day CT chest abdomen pelvis for further evaluation. IMPRESSION: Unremarkable thoracic spine. No sign of acute injury. Please note that all CT scans at this facility use dose modulation, iterative reconstruction, and/or weight-based dosing when appropriate to reduce radiation dose to as low as reasonably achievable. Dictated by Jaiden Canales MD @ 06/18/2022 5:39:45 PM (Electronic Signature) Critical Care Time Critical Care Time Critical Care Time: No Discharge Plan Discharge Clinical Impression: Pancreatic cancer, Bilateral thoracic back pain, Acute lumbar back pain Patient Disposition: Home, Self-Care Condition: Stable Instructions: Acute Low Back Pain (ED), Thoracic Pain (ED), Back Pain (ED) Additional Instructions: Can continue with heat as he states it did make her back feel better. If he does not make you feel better, can always try ice. Can use the Dilaudid as you have been for pain management. Contact your oncologist on Monday for further management. If your pain is increased seen, develops new or concerning symptoms, talked to her oncologist; if they do want further imaging with MRI, we are unable to do this weekend. Activity Level: Activity as Tolerated Prescriptions: New hydromorphone [Dilaudid] 4 mg tablet 4 mg PO Q6H PRN (Reason: pain) Qty: 4 0RF No Action gabapentin 300 mg capsule hydromorphone 4 mg tablet trazodone 50 mg tablet Label Comments: TAKE 1-2 TABLETS BY MOUTH AT BEDTIME. TAKE 50MG DAILY AT BEDTIME FOR ATLEAST 7 DAYS. MAY INCREASE TO 100MG IF NEEDED. ondansetron 8 mg tablet,disintegrating lorazepam 0.5 mg tablet pantoprazole 40 mg tablet,delayed release (DR/EC) PO Label Comments: TAKE 1 TABLET BY MOUTH EVERY MORNING BEFORE BREAKFAST. Creon 24,000-76,000 -120,000 unit capsule,delayed release(DR/EC) PO Label Comments: TAKE 2 CAPSULES BY MOUTH WITH MEALS AND 1-2 CAPSULES WITH SNACKS levofloxacin 750 mg tablet 750 mg PO DAILY 7 Days Qty: 7 0RF Follow Up/Referrals: Provider,Not a Local [Primary Care Provider] - Stand Alone Forms: [email or web address] Info Instructions
--- NOTE | 2022-06-18 14:59 | CRLHL7_ITS ---
For Patients: As a result of the Century Cures Act, medical imaging exams and procedure reports are released immediately into your electronic medical record. You may view this report before your referring provider. If you have questions, please contact your health care provider. INDICATION: Back pain. TECHNIQUE: CT lumbar spine without contrast. COMPARISON: May 24, 2022. FINDINGS: Vertebrae: Alignment is normal. There are no fractures or suspicious bony lesions. Discs and facet joints: Disc spaces and facets are within normal limits. Mild degenerative changes. Extraspinal findings: Please refer to same-day CT chest, abdomen, pelvis for further evaluation. IMPRESSION: Unremarkable lumbar spine CT. Please note that all CT scans at this facility use dose modulation, iterative reconstruction, and/or weight-based dosing when appropriate to reduce radiation dose to as low as reasonably achievable. Dictated by Jaiden Canales MD @ 06/18/2022 5:45:09 PM (Electronically Signed)
--- NOTE | 2022-06-18 14:59 | CRLHL7_ITS ---
For Patients: As a result of the Century Cures Act, medical imaging exams and procedure reports are released immediately into your electronic medical record. You may view this report before your referring provider. If you have questions, please contact your health care provider. INDICATION: Back pain. TECHNIQUE: CT thoracic spine without contrast. COMPARISON: CT chest performed August 12, 2020.. FINDINGS: Vertebrae: Alignment is normal. There are no fractures or suspicious bony lesions. Stable T7 lucency, possibly vertebral body meningioma. Discs and facet joints: Disc spaces and facets are within normal limits. Mild degenerative changes. Extraspinal findings: Please refer to same-day CT chest abdomen pelvis for further evaluation. IMPRESSION: Unremarkable thoracic spine. No sign of acute injury. Please note that all CT scans at this facility use dose modulation, iterative reconstruction, and/or weight-based dosing when appropriate to reduce radiation dose to as low as reasonably achievable. Dictated by Jaiden Canales MD @ 06/18/2022 5:39:45 PM (Electronically Signed)
[2022-06-18 15:33] LABS: Basophils Percent Auto 0.5 % (0.0-3.0); Eosinophils Percent Auto 4.4 % (0.0-7.0); Hematocrit 34.1 % (37.0-53.0); Hemoglobin* 10.9 gm/dL (13.5-17.5); Immature Granulocytes Abs Auto 0.02 K/uL (0.00-0.30); Lymphocytes Percent Auto 13.7 % (20-44); Mean Corpuscular HGB Conc 32 gm/dL (32-36); Mean Corpuscular Hemoglobin 27 pg (26-34); Mean Corpuscular Volume 86 fL (80-100); Monocytes Percent Auto 2.8 % (0.0-11.0); Neutrophils Percent Auto 78.1 % (42.0-72.0); Platelet Count* 165 K/uL (140-440); RDW Coefficient of Variation % 16.6 % (11.5-15.5); Red Blood Count 3.98 m/uL (4.30-5.90); White Blood Count* 3.87 K/uL (4.50-11.00)
[2022-06-18 15:37] LABS: Slide Review Reflex No
[2022-06-18] MEDS: 0.9 % SODIUM CHLORIDE 1000 ml 1,000 ML 35 ML IV (15:42)
[2022-06-18] MEDS: HYDROmorphone 0.5 mg/0.5 ml inj IVP ×2 (15:42→16:43)
[2022-06-18] MEDS: ONDANSETRON 2 MG/ML inj 4 MG IVP (15:42)
[2022-06-18 15:51] LABS: Chloride* 102 mmol/L (96-114)
[2022-06-18 15:52] LABS: Sodium* 137 mmol/L (135-149)
--- OUTSIDE RECORDS SUMMARY | 2022-06-18 15:53 | XMS_ITS | Clinical Summary ---
:1965 Author Organization [facility] [place] [address] Care Team Providers Name Role Phone Listed, Not Primary Care Provider Unavailable Allergies No known active allergies Medications Medication Sig Dispensed Refills Start Date End Date Status omeprazole (PRILOSEC) Take 20 mg by mouth 0 Active 20 mg Delayed-Release once daily. capsuleIndications: Indications: gastroesophageal gastroesophageal reflux disease reflux disease oxyCODONE Take 1 tablet by 20 tablet 0 07/29/2020 Ac tive (ROXICODONE) 5 mg mouth every 4 hours immediate release tabletIndications: Jaundice Active Problems Problem Noted Date Hyponatremia 07/30/2020 Post-ERCP acute pancreatitis 07/30/2020 Pancreatic cancer 07/30/2020 Family History Medical History Relation Name Comments Throat cancer Father Relation Name Status Comments Father Social History Tobacco Use Types Packs/Day Years Used Date Unknown If Ever Smoked Smokeless Tobacco: Never Used Alcohol Use Standard Drinks/Week Comments Not Currently 0 (1 standard drink = 0.6 oz pure alcoho l) Sex Assigned at Date Recorded Not on file Obstetrics History Last Filed Vital Signs Vital Sign Reading Time Taken Comments Blood Pressure 140/85 08/05/2020 8:00 AM STUDIO DESIGNER Pulse 79 08/05/2020 8:00 AM STUDIO DESIGNER Temperature 36.7 ??C (98.1 ??F) 08/05/2020 8:00 AM STUDIO DESIGNER Respiratory Rate 20 08/05/2020 8:00 AM STUDIO DESIGNER Oxygen Saturation 96% 08/05/2020 8:00 AM STUDIO DESIGNER Inhaled Oxygen Concentration - - Weight 87.9 kg (193 lb 11.2 oz) 08/05/2020 8:00 AM STUDIO DESIGNER Height 175.3 cm (5' 9) 07/29/2020 10:54 PM STUDIO DESIGNER Body Mass Index 28.6 07/29/2020 10:54 PM STUDIO DESIGNER Plan of Treatment Health Maintenance Due Date Last Done Comments Tdap 1975 Depression screening for age 12+ 1976 BMI (ht and wt on same day) for age 18+ 1982 Hepatitis C screening for age 18-79 1982 Tetanus booster 1984 Colonoscopy through age 75 2009 Lipids for age 45-75 2009 Zoster (shingles) series for age 50+ (1 of 2014 2) COVID-19 vaccine series (3 - Booster for 02/16/2021 021, 12/01/2020 Pfizer series) Influenza for age 50-64 05/12/2022 Medical Devices Implanted Type Area Skid Adzer Device Shelf Model / Identifier Expiration Serial / Date Lot Stent Biliary [id number] Wallflexuncovered Metal - [id number] N /A: [facility] [id number] / Implanted: Qty: 1 on 07/29/2020 by Sabino Knight MD at [facility]ology / Bile [id number] Duct Description: 10x60 metal stent in cbd Stent Biliary [id number] Wallflexuncovered Metal - [id number] [facility] Gastroenterology 07/02/2022 [id number] / Implanted: Qty: 1 on 08/04/2020 by Rangel Cordova MD at [facility] / [id number] Results Not on filefrom Last 3 Months Insurance Payer Benefit Plan / Subscriber ID Effective Dates Phone Addre ss Type Group PREFERRED ONE PREFERRED ONE [id number] 2020-Present [address] [place] [address] Advance Directives Latest Code Status on File Code Status Date Activated Date Inactivated Comments Full Code 07/30/2020 5:23 AM 08/05/2020 1:10 PM Code Status Discussion: Discussed Full Code 07/29/2020 8:18 AM 07/29/2020 3:27 PM Code Status Discussion: Not Discussed Full Code 07/29/2020 8:18 AM 07/29/2020 8:18 AM Code Status Discussion: Not Discussed Care Teams Drug Enforcement Administration Agent Relationship Specialty Start Date End Date Listed, Not PCP - General 10/28/10 [place] [address]
[2022-06-18 15:54] LABS: Bilirubin Total* 0.7 mg/dL (0.1-1.5); Creatinine* 0.7 mg/dL (0.5-1.5); Est. Creatinine Clearance* 111.29; Estimated Glomerular Filt Rate 107 ml/min
--- OUTSIDE RECORDS SUMMARY | 2022-06-18 15:54 | XMS_ITS | Encounter Summary ---
:1965 Author Organization [place] Address [address] [place] [address]. [place] [address] Care Team Providers Name Role Phone Adrian Mills MD Primary Care Provider [phone] Adrian Mills MD Unavailable Encounter Details Date Type Department Care Team Description 11/02/2020 Travel Social History Tobacco Use Types Packs/Day Years Used Date Never Smoker Smokeless Tobacco: Never Used Alcohol Use Standard Drinks/Week Comments No 0 (1 standard drink = 0.6 oz pure alcoho l) Sex Assigned at Date Recorded Male 01/07/2021 5:29 PM CDT COVID-19 Exposure Response Date Recorded In the last month, have you been in contact with No / Unsure 11/02/2020 10:35 AM SHOCK ABSORBER INSTALLER someone who was confirmed or suspected to have Coronavirus / COVID-19? documented as of this encounter Plan of Treatment Not on filedocumented as of this encounter Visit Diagnoses Not on filedocumented in this encounter Additional Health Concerns Assessment Noted Time PHQ-9 Depression Total Score: 0 11/30/2018 9:17 AM CDT documented as of this encounter Care Teams Device Test Engineer Relationship Specialty Start Date End Date Adrian Mills MD PCP - General Family Practice 10/29/12 Adrian Mills MD Assigned PCP 08/30/20 [address] [place] [address] documented as of this encounter
--- OUTSIDE RECORDS SUMMARY | 2022-06-18 15:54 | XMS_ITS | Encounter Summary ---
:1965 Author Organization [place] Address [address] [facility] [place] [address] Care Team Providers Name Role Phone Adrian Mills MD Primary Care Provider [phone] Adrian Mills MD Unavailable Reason for Referral Rehab Therapy Integrated Services (Routine) - Closed Specialty Diagnoses / Procedures Referred By Contact Refer red To Contact Diagnoses Malignant neoplasm of pancreas, unspecified location of malignancy (H) [facility] [address] [place] [address] Phone: Fax: Referral ID Status Reason Start Date Expiration Date Visits Requ ested Visits Authorized [id number] Closed 12/25/2020 09/10/2021 365 365 Encounter Details Date Type Department Care Team Description 12/23/2020 Orders Only [facility] Elisabet Whitley Malign ant neoplasm of Clinic Derek Lilly APRN CNP pancreas, unspecified [id number] location of malignancy [place] [address] (H) (Primary Dx) [address] [phone] Social History Tobacco Use Types Packs/Day Years Used Date Never Smoker Smokeless Tobacco: Never Used Alcohol Use Standard Drinks/Week Comments No 0 (1 standard drink = 0.6 oz pure alcoho l) Sex Assigned at Date Recorded Male 01/07/2021 5:29 PM CDT COVID-19 Exposure Response Date Recorded In the last month, have you been in contact with No / Unsure 12/18/2020 1:14 PM CDT someone who was confirmed or suspected to have Coronavirus / COVID-19? documented as of this encounter Plan of Treatment Scheduled Referrals Name Type Priority Associated Diagnoses Order S chedule Wheelchair Scooter Referral Routine Malignant neoplasm of Expected: Order for DME - ONLY pancreas, unspecifie d 12/23/2020, Expires: FOR DME location of malignancy 12/23 (H) documented as of this encounter Visit Diagnoses Diagnosis Malignant neoplasm of pancreas, unspecif ied location of malignancy (H) - Primary documented in this encounter Additional Health Concerns Assessment Noted Time PHQ-9 Depression Total Score: 0 11/30/2018 9:17 AM CDT documented as of this encounter Care Teams Feeder/Folder Relationship Specialty Start Date End Date Adrian Mills MD PCP - General Family Practice 10/29/12 Adrian Mills MD Assigned PCP 08/30/20 [address] [address] [place] [address] documented as of this encounter
--- OUTSIDE RECORDS SUMMARY | 2022-06-18 15:54 | XMS_ITS | Encounter Summary ---
:1965 Author Organization [place] Address [address] [facility] [place] [address] Care Team Providers Name Role Phone Adrian Mills MD Primary Care Provider [phone] Adrian Mills MD Unavailable Reason for Visit Reason Onset Date Comments Forms 03/09/2021 [facility] Certific ation & Plan of Care [facility] Encounter Details Date Type Department Care Team Description 03/09/2021 Telephone [facility] Adrian Mills Forms ([facility] [place] [address] [address] [place], [place] [address] [facility]) [address] [phone] Social History Tobacco Use Types Packs/Day Years Used Date Never Smoker Smokeless Tobacco: Never Used Alcohol Use Standard Drinks/Week Comments No 0 (1 standard drink = 0.6 oz pure alcoho l) Sex Assigned at Date Recorded Male 01/07/2021 5:29 PM CDT documented as of this encounter Miscellaneous Notes Telephone Encounter - Rachel Montgomery - 03/11/2021 2:32 PM CDT Form faxed back to [phone]. -Rachel Montgomery Ball Thread Machine Tender Telephone Encounter - Adrian Mills MD - 03/11/2021 2:07 PM CDT Signed Adrian Mills MD Telephone Encounter - Rachel Montgomery - 03/09/2021 1:21 PM CDT Received Home Health Certification & Plan of Care - [facility], placed in PCP's in basket. Please review, sign and fax back to [phone]. documented in this encounter Plan of Treatment Not on filedocumented as of this encounter Visit Diagnoses Not on filedocumented in this encounter Additional Health Concerns Assessment Noted Time PHQ-9 Depression Total Score: 0 11/30/2018 9:17 AM CDT documented as of this encounter Care Teams Clinical Ob Relationship Specialty Start Date End Date Adrian Mills MD PCP - General Family Practice 10/29/12 Adrian Mills MD Assigned PCP 08/30/20 [address] [place] [address] documented as of this encounter
--- OUTSIDE RECORDS SUMMARY | 2022-06-18 15:54 | XMS_ITS | Encounter Summary ---
:1965 Author Organization [place] Address [address] [place] [address]. [place] [address] Care Team Providers Name Role Phone Adrian Mills MD Primary Care Provider [phone] Adrian Mills MD Unavailable Encounter Details Date Type Department Care Team Description 03/26/2021 Travel Social History Tobacco Use Types Packs/Day Years Used Date Never Smoker Smokeless Tobacco: Never Used Alcohol Use Standard Drinks/Week Comments No 0 (1 standard drink = 0.6 oz pure alcoho l) Sex Assigned at Date Recorded Male 01/07/2021 5:29 PM CDT COVID-19 Exposure Response Date Recorded In the last month, have you been in contact with No / Unsure 03/26/2021 4:08 PM CDT someone who was confirmed or suspected to have Coronavirus / COVID-19? documented as of this encounter Plan of Treatment Not on filedocumented as of this encounter Visit Diagnoses Not on filedocumented in this encounter Additional Health Concerns Assessment Noted Time PHQ-9 Depression Total Score: 0 11/30/2018 9:17 AM CDT documented as of this encounter Care Teams Repairer Wood Furniture Relationship Specialty Start Date End Date Adrian Mills MD PCP - General Family Practice 10/29/12 Adrian Mills MD Assigned PCP 08/30/20 [address] [place] [address] documented as of this encounter
--- OUTSIDE RECORDS SUMMARY | 2022-06-18 15:54 | XMS_ITS | Encounter Summary ---
:1965 Author Organization [place] Address [facility] [place] [address] Care Team Providers Name Role Phone Adrian Mills MD Primary Care Provider [phone] Adrian Mills MD Unavailable Reason for Visit Reason Comments *-*INCOMING RECORDS*-* recd records from [facility] 11/02/2020 Encounter Details Date Type Department Care Team Description 11/02/2020 Documentation Only [facility] Adrian Mills *-* INCOMING Clinic Derek Waller MD RECORDS*-* ([address] [address] [facility] [place] [place] [facility] [place] [address] [id number] Social History Tobacco Use Types Packs/Day Years Used Date Never Smoker Smokeless Tobacco: Never Used Alcohol Use Standard Drinks/Week Comments No 0 (1 standard drink = 0.6 oz pure alcoho l) Sex Assigned at Date Recorded Male 01/07/2021 5:29 PM CDT COVID-19 Exposure Response Date Recorded In the last month, have you been in contact with No / Unsure 11/02/2020 10:35 AM CALCULATION REVIEWER someone who was confirmed or suspected to have Coronavirus / COVID-19? documented as of this encounter Progress Notes Kathy Schlutz - 11/02/2020 7:37 AM CST Recd records from [facility] 11/02/2020 and forwarded to Adrian Mills for review and scanning documented in this encounter Plan of Treatment Not on filedocumented as of this encounter Visit Diagnoses Not on filedocumented in this encounter Additional Health Concerns Assessment Noted Time PHQ-9 Depression Total Score: 0 11/30/2018 9:17 AM CDT documented as of this encounter Care Teams Wind Instrument Repairer Relationship Specialty Start Date End Date Adrian Mills MD PCP - General Family Practice 10/29/12 Adrian Mills MD Assigned PCP 08/30/20 [address] [place] [address] documented as of this encounter
--- OUTSIDE RECORDS SUMMARY | 2022-06-18 15:54 | XMS_ITS | Encounter Summary ---
:1965 Author Organization [place] Address [address] [place] [address]. [place] [address] Care Team Providers Name Role Phone Adrian Mills MD Primary Care Provider [phone] Adrian Mills MD Unavailable Encounter Details Date Type Department Care Team Description 10/06/2020 Travel Social History Tobacco Use Types Packs/Day Years Used Date Never Smoker Smokeless Tobacco: Never Used Alcohol Use Standard Drinks/Week Comments No 0 (1 standard drink = 0.6 oz pure alcoho l) Sex Assigned at Date Recorded Male 01/07/2021 5:29 PM CDT COVID-19 Exposure Response Date Recorded In the last month, have you been in contact with No / Unsure 10/06/2020 3:36 PM BANK CONSULTANT someone who was confirmed or suspected to have Coronavirus / COVID-19? documented as of this encounter Plan of Treatment Not on filedocumented as of this encounter Visit Diagnoses Not on filedocumented in this encounter Additional Health Concerns Assessment Noted Time PHQ-9 Depression Total Score: 0 11/30/2018 9:17 AM CDT documented as of this encounter Care Teams Information Engineer Relationship Specialty Start Date End Date Adrian Mills MD PCP - General Family Practice 10/29/12 Adrian Mills MD Assigned PCP 08/30/20 [address] [place] [address] documented as of this encounter
--- OUTSIDE RECORDS SUMMARY | 2022-06-18 15:54 | XMS_ITS | Clinical Summary ---
:1965 Author Organization [place] Address [address] [place] [address] Care Team Providers Name Role Phone Adrian Mills MD Primary Care Provider [phone] Adrian Mills MD Unavailable Allergies Active Allergy Reactions Severity Noted Date Comments Ranitidine Diarrhea 11/23/2010 Medications Medication Sig Dispensed Refills Start Date End Date Status lidocaine-prilocaine Apply topically as 30 g 1 12/18/2020 Active (EMLA) 2.5-2.5 % needed for other external (30 prior to port creamIndications: access) Encounter for care related to Port-a-Cath HYDROmorphone Take 6 mg by mouth 0 01/03/2021 Active (DILAUDID) 4 MG tablet Active Problems Problem Noted Date Medical marijuana use 10/09/2020 Malignant neoplasm of pancreas, unspecified location o f malignancy 08/20/2020 Adjustment disorder with mixed anxiety and depressed m ood 12/04/2012 GERD (gastroesophageal reflux disease) 10/31/2012 Plantar fasciitis of right foot 10/31/2012 CARDIOVASCULAR SCREENING; LDL GOAL LESS THAN 160 10/29 Immunizations Name Administration Dates Next Due COVID-19,PF,Pfizer (12+ Yrs) 12/22/2020, 12/01/2020 FLU 6-35 months 06/15/2010 Influenza Vaccine IM > 6 months 10/02/2020, 06/20/2012, 06/11, Valent IIV4 (Alfuria,Fluzone) 06/15/2010 TD (ADULT, 7+) 03/22/2006 TDAP Vaccine (Adacel) 10/31/2012, 03/22/2006 Tdap (Adult) Unspecified Formulation 03/22/2006 Family History Medical History Relation Comments No Known Problems Daughter 1 No Known Problems Daughter 2 Cancer Father throat cancer, step father Cancer Maternal Grandmother Connective Tissue Disorder Sister MS (half sist er) Relation Status Comments Brother 1 Alive Brother 2 Alive Daughter 1 Alive Daughter 2 Alive Father Maternal Grandfather Maternal Grandmother Mother Alive Paternal Grandfather Paternal Grandmother Sister Alive Social History Tobacco Use Types Packs/Day Years Used Date Never Smoker Smokeless Tobacco: Never Used Alcohol Use Standard Drinks/Week Comments No 0 (1 standard drink = 0.6 oz pure alcoho l) Sex Assigned at Date Recorded Male 01/07/2021 5:29 PM CDT Last Filed Vital Signs Vital Sign Reading Time Taken Comments Blood Pressure 120/72 01/08/2021 3:26 PM CDT Pulse 78 01/08/2021 3:26 PM CDT Temperature 36.5 ??C (97.7 ??F) 01/08/2021 3:26 PM CDT Respiratory Rate 16 01/08/2021 3:26 PM CDT Oxygen Saturation 100% 01/08/2021 3:26 PM CDT Inhaled Oxygen Concentration - - Weight 70.1 kg (154 lb 8 oz) 01/08/2021 3:26 PM CDT Height 178.4 cm (5' 10.25) 01/08/2021 3:26 PM CDT Body Mass Index 22.01 01/08/2021 3:26 PM CDT Plan of Treatment Health Maintenance Due Date Last Done Comments ADVANCE CARE PLANNING 1965 CT COLONOGRAPHY 1965 FIT-DNA (Cologuard) 1965 FIT 1965 FLEX SIG 1965 ZOSTER IMMUNIZATION (1 of 2014 2) PREVENTIVE CARE VISIT 12/01/2019 11/30/2018, 02/05/2014, 10/31/2012 COVID-19 Vaccine (3 - 02/16/2021 12/22/2020, 12/01/2020 Booster for Pfizer series) PHQ-2 (once per calendar 09/11/2021 12/18/2020, 11/30/2018, year) 11/30/2018, Additional history exists ANNUAL REVIEW OF HM ORDERS 12/18/2021 12/18/2020 INFLUENZA VACCINE (#1) 2022 10/02/2020, 11/30/2018 (Declined), 06/20/2012, Additional history exists DTAP/TDAP/TD IMMUNIZATION 10/31/2022 10/31/2012, 03/22/2006 , (3 - Td or Tdap) 03/22/2006, Additional history exists LIPID 12/01/2023 11/30/2018, 02/05/2014, 10/31/2012 COLONOSCOPY 12/14/2028 12/14/2018, 12/14/2018 COLORECTAL CANCER 12/14/2028 SCREENING HEPATITIS C SCREENING Completed 11/30/2018 HEPATITIS B IMMUNIZATION Aged Out No long er eligible based on patient 's age to complete this topic HIV SCREENING Discontinued IPV IMMUNIZATION Aged Out No longer eligi ble based on patient 's age to complete this topic MENINGITIS IMMUNIZATION Aged Out No longe r eligible based on patient 's age to complete this topic Pneumococcal Vaccine: Aged Out No longer eligible Pediatrics (0 to 5 Years) based on patient's age and At-Risk Patients (6 to to co mplete this topic 64 Years) Insurance Payer Benefit Plan / Subscriber ID Effective Phone Address T ype Group Dates PREFERREDONE PREFERREDONE HMO [id number] 2013-Pres [phone]PO [id number] [place] [address] [facility] [id number] 2011-Pres [address] [facility] ent [id number] [place] [address] Care Teams Video Manager Relationship Specialty Start Date End Date Adrian Mills MD PCP - General Family Practice 10/29/12 Adrian Mills MD Assigned PCP 08/30/20 [address] [place] [address]
--- OUTSIDE RECORDS SUMMARY | 2022-06-18 15:54 | XMS_ITS | Encounter Summary ---
:1965 Author Organization [place] Address [address] [facility] [place] [address] Care Team Providers Name Role Phone Adrian Mills MD Primary Care Provider [phone] Adrian Mills MD Unavailable Reason for Visit Reason Onset Date Comments Orders 12/22/2020 DME wheelchair scoot er Encounter Details Date Type Department Care Team Description 12/22/2020 Telephone [facility] Geen Adrian Orders (D [place] wheelchair Clinic Derek Waller MD scooter) [address] [place], [place] [address] [phone] Social History Tobacco Use Types Packs/Day Years [...] / COVID-19? documented as of this encounter Miscellaneous Notes Telephone Encounter - Rachel Montgomery - 12/23/2020 3:20 PM CDT Elisabet Whitley updated order. -Rachel Montgomery Commercial Sales Manager Telephone Encounter - Rachel Montgomery - 12/23/2020 2:58 PM CDT Spoke with Rehab Services who needs Dr. Mills or another provider to change the Specialty Services portion of the order. They are routing a message to have it updated appropriately. Once the order is updated they will call the patient to schedule his evaluation. PT advised. -Rachel Montgomery Commercial Sales Manager Telephone Encounter - Mey Monroe - 12/22/2020 4:30 PM CDT Patient's hasn't heard from anyone regarding his DME order for Wheelchair scooter, please call patient at [phone]. Patient's doesn't care where we sent the order but he would like to go pick it upsoon. Mey Monroe [facility] Chicle Grinder Feeder documented in this encounter Plan of Treatment Not on filedocumented as of this encounter Visit Diagnoses Not on filedocumented in this encounter Additional Health Concerns Assessment Noted Time PHQ-9 Depression Total Score: 0 11/30/2018 9:17 AM CDT documented as of this encounter Care Teams Metal Ceiling Builder Relationship Specialty Start Date End Date Adrian Mills MD PCP - General Family Practice 10/29/12 Adrian Mills MD Assigned PCP 08/30/20 [address] [place] [address] documented as of this encounter
--- OUTSIDE RECORDS SUMMARY | 2022-06-18 15:54 | XMS_ITS | Encounter Summary ---
:1965 Author Organization [place] Address [address] [place] [address]. [place] [address] Care Team Providers Name Role Phone Adrian Mills MD Primary Care Provider [phone] Adrian Mills MD Unavailable Encounter Details Date Type Department Care Team Description 12/18/2020 Travel Social History Tobacco Use Types Packs/Day [...] documented as of this encounter Care Teams Category Development Manager Relationship Specialty Start Date End Date Adrian Mills MD PCP - General Family Practice 10/29/12 Adrian Mills MD Assigned PCP 08/30/20 [address] [place] [address] documented as of this encounter
--- OUTSIDE RECORDS SUMMARY | 2022-06-18 15:54 | XMS_ITS | Encounter Summary ---
:1965 Author Organization [place] Address [address] [facility] [place] [address] Care Team Providers Name Role Phone Adrian Mills MD Primary Care Provider [phone] Adrian Mills MD Unavailable Encounter Details Date Type Department Care Team Description 11/20/[address] [facility] Adrian Mills DIAGNOSIS NOT YET Clinic Derek Waller MD DEFINED (Primary Dx) [address] [place], [place] [phone] Social History Tobacco Use Types Packs/Day Years [...] Not on filedocumented as of this encounter Procedures Procedure Name Priority Date/Time Associated Diagnosis Comme nts [place] MD CERTIFICATION MANAGER ENGLISH Routine 11/20/2020 DIAGNOSIS NOT YET DEFINED PATIENT documented in this encounter Results MD CERTIFICATION MANAGER ENGLISH PATIENT (11/20/2020) Narrative This result has an attachment that is no t available. Adrian Mills MD SPECIAL REPORTS documented in this encounter Visit Diagnoses Diagnosis DIAGNOSIS NOT YET DEFINED - Primary documented in this encounter Additional Health Concerns Assessment Noted Time PHQ-9 Depression Total Score: 0 11/30/2018 9:17 AM CDT documented as of this encounter Care Teams Pit Worker Power Shovel Relationship Specialty Start Date End Date Adrian Mills MD PCP - General Family Practice 10/29/12 Adrian Mills MD Assigned PCP 08/30/20 [address] [place] [address] documented as of this encounter
--- OUTSIDE RECORDS SUMMARY | 2022-06-18 15:54 | XMS_ITS | Encounter Summary ---
:1965 Author Organization [place] Address [address] [facility] [place] [address] Care Team Providers Name Role Phone Adrian Mills MD Primary Care Provider [phone] Adrian Mills MD Unavailable Encounter Details Date Type Department Care Team Description 03/16/2021 Orders Only [facility] Adrian Mills DIAGNOSIS NOT YET Clinic Derek Waller MD DEFINED (Primary Dx) [address] [address] [place], [place] [id number] [phone] Social History Tobacco Use Types Packs/Day Years [...] Name Priority Date/Time Associated Diagnosis Comme nts ME RECERTIFICATION FORM BUILDER HELPER PT Routine 03/16/2021 DIAGNOSIS NO T YET DEFINED documented in this encounter Results MD TEE LOVELL PT (03/16/2021) Narrative This result has an attachment that is no t available. Adrian Mills MD SPECIAL REPORTS documented in this encounter Visit Diagnoses Diagnosis DIAGNOSIS NOT YET DEFINED - Primary documented in this encounter Additional Health Concerns Assessment Noted Time PHQ-9 Depression Total Score: 0 11/30/2018 9:17 AM CDT documented as of this encounter Care Teams Graphic Design Manager Relationship Specialty Start Date End Date Adrian Mills MD PCP - General Family Practice 10/29/12 Adrian Mills MD Assigned PCP 08/30/20 [address] [place] [address] documented as of this encounter
--- OUTSIDE RECORDS SUMMARY | 2022-06-18 15:54 | XMS_ITS | Encounter Summary ---
:1965 Author Organization [place] Address [address] [place] [address]. [place] [address] Care Team Providers Name Role Phone Adrian Mills MD Primary Care Provider [phone] Adrian Mills MD Unavailable Encounter Details Date Type Department Care Team Description 10/09/2020 Travel Social History Tobacco Use Types Packs/Day Years Used Date Never Smoker Smokeless Tobacco: Never Used Alcohol Use Standard Drinks/Week Comments No 0 (1 standard drink = 0.6 oz pure alcoho l) Sex Assigned at Date Recorded Male 01/07/2021 5:29 PM CDT COVID-19 Exposure Response Date Recorded In the last month, have you been in contact with No / Unsure 10/09/2020 7:48 AM BACK END ENGINEER someone who was confirmed or suspected to have Coronavirus / COVID-19? documented as of this encounter Plan of Treatment Not on filedocumented as of this encounter Visit Diagnoses Not on filedocumented in this encounter Additional Health Concerns Assessment Noted Time PHQ-9 Depression Total Score: 0 11/30/2018 9:17 AM CDT documented as of this encounter Care Teams Lens Cleaner Relationship Specialty Start Date End Date Adrian Mills MD PCP - General Family Practice 10/29/12 Adrian Mills MD Assigned PCP 08/30/20 [address] [place] [address] documented as of this encounter
--- OUTSIDE RECORDS SUMMARY | 2022-06-18 15:54 | XMS_ITS | Encounter Summary ---
:1965 Author Organization [place] Address [address] [place] [address] Care Team Providers Name Role Phone Adrian Mills MD Primary Care Provider [phone] Adrian Mills MD Unavailable Encounter Details Date Type Department Care Team Description 12/22/2020 Immunization [facility] Luis Casillas Vaccination [id number] [place] [phone] Social History Tobacco Use Types Packs/Day Years [...] documented as of this encounter Care Teams Return Agent Relationship Specialty Start Date End Date Adrian Mills MD PCP - General Family Practice 10/29/12 Adrian Mills MD Assigned PCP 08/30/20 [address] [address] [address] documented as of this encounter
--- OUTSIDE RECORDS SUMMARY | 2022-06-18 15:54 | XMS_ITS | Encounter Summary ---
:1965 Author Organization [place] Address [address] [facility] [place] [address] Care Team Providers Name Role Phone Adrian Mills MD Primary Care Provider [phone] Adrian Mills MD Unavailable Reason for Visit Reason Onset Date Comments Refill Request 10/15/2020 Oxycodone 5mg Encounter Details Date Type Department Care Team Description 10/15/2020 Refill [facility] Adrian Mills Refill [facility] Derek Waller MD (Oxycodone 5mg) [address] [address] [place] [phone] [phone] Social History Tobacco Use Types Packs/Day Years Used Date Never Smoker Smokeless Tobacco: Never Used Alcohol Use Standard Drinks/Week Comments No 0 (1 standard drink = 0.6 oz pure alcoho l) Sex Assigned at Date Recorded Male 01/07/2021 5:29 PM CDT COVID-19 Exposure Response Date Recorded In the last month, have you been in contact with No / Unsure 10/09/2020 7:48 AM FIREFIGHTING EQUIPMENT SPECIALIST someone who was confirmed or suspected to have Coronavirus / COVID-19? documented as of this encounter Miscellaneous Notes Telephone Encounter - Yarely Morel RN - 10/15/2020 11:44 AM CST Images from the original note were not included. Last OV: 10/09/2020 Yarely Morel RN FIGHTING EQUIPMENT SPECIALIST documented in this encounter Plan of Treatment Not on filedocumented as of this encounter Visit Diagnoses Diagnosis Malignant neoplasm of pancreas, unspecif ied location of malignancy (H) - Primary documented in this encounter Additional Health Concerns Assessment Noted Time PHQ-9 Depression Total Score: 0 11/30/2018 9:17 AM CDT documented as of this encounter Care Teams Community Outreach Manager Relationship Specialty Start Date End Date Adrian Mills MD PCP - General Family Practice 10/29/12 Adrian Mills MD Assigned PCP 08/30/20 [address] [address] [address] documented as of this encounter
--- OUTSIDE RECORDS SUMMARY | 2022-06-18 15:54 | XMS_ITS | Encounter Summary ---
:1965 Author Organization [place] Address [address] [place] [address] Care Team Providers Name Role Phone Adrian Mills MD Primary Care Provider [phone] Adrian Mills MD Unavailable Reason for Visit Reason Onset Date Comments Forms 10/28/2020 Community Health Certific ation and Plan of Care Encounter Details Date Type Department Care Team Description 10/28/2020 Telephone [facility] Adrian Mills Forms ([facility] Derek Waller MD Certification and Plan [address] of Care) [place] [id number] [phone] Social History Tobacco Use Types Packs/Day Years Used Date Never Smoker Smokeless Tobacco: Never Used Alcohol Use Standard Drinks/Week Comments No 0 (1 standard drink = 0.6 oz pure alcoho l) Sex Assigned at Date Recorded Male 01/07/2021 5:29 PM CDT COVID-19 Exposure Response Date Recorded In the last month, have you been in contact with No / Unsure 10/09/2020 7:48 AM DAY CAMP COUNSELOR someone who was confirmed or suspected to have Coronavirus / COVID-19? documented as of this encounter Miscellaneous Notes Telephone Encounter - Rachel Montgomery - 10/29/2020 9:43 AM CST Form faxed to [phone]. -Rachel Montgomery Resource Management Specialist CAMP COUNSELOR Telephone Encounter - Adrian Mills MD - 10/29/2020 8:05 AM DAY CAMP COUNSELOR Signed Adrian Mills MD CAMP COUNSELOR Telephone Encounter - Rachel Montgomery - 10/28/2020 9:56 AM CST Received Home Health Certification and Plan of Care, placed in PCP's in basket. Please review, sign and fax back to [phone]. CAMP COUNSELOR documented in this encounter Plan of Treatment Not on filedocumented as of this encounter Visit Diagnoses Not on filedocumented in this encounter Additional Health Concerns Assessment Noted Time PHQ-9 Depression Total Score: 0 11/30/2018 9:17 AM CDT documented as of this encounter Care Teams Golf Ball Inspector Relationship Specialty Start Date End Date Adrian Mills MD PCP - General Family Practice 10/29/12 Adrian Mills MD Assigned PCP 08/30/20 [id number] [address] [place] [address] documented as of this encounter
--- OUTSIDE RECORDS SUMMARY | 2022-06-18 15:54 | XMS_ITS | Encounter Summary ---
:1965 Author Organization [place] Address [address] [facility] [place] [address] Care Team Providers Name Role Phone Adrian Mills MD Primary Care Provider [phone] Adrian Mills MD Unavailable Reason for Visit Reason Comments Hospital F/U Encounter Details Date Type Department Care Team Description 01/08/2021 Office Visit [facility] Adrian Mills Malignant neoplasm of Clinic Derek Waller MD pancreas, unspecified [address] location of [facility] [place] [address] malignancy (H) [id number] (Primary Dx) [phone] Social History Tobacco Use Types Packs/Day Years Used Date Never Smoker Smokeless Tobacco: Never Used Alcohol Use Standard Drinks/Week Comments No 0 (1 standard drink = 0.6 oz pure alcoho l) Sex Assigned at Date Recorded Male 01/07/2021 5:29 PM CDT COVID-19 Exposure Response Date Recorded In the last month, have you been in contact with No / Unsure 01/08/2021 2:54 PM CDT someone who was confirmed or suspected to have Coronavirus / COVID-19? documented as of this encounter Last Filed Vital Signs Vital Sign Reading [...] Mass Index 22.01 01/08/2021 3:26 PM CDT documented in this encounter Progress Notes Adrian Mills MD - 01/08/2021 3:20 PM CDT Assessment and Plan (C25.9) Malignant neoplasm of pancreas, unspecified location of malignancy (H) (primary encounter diagnosis) Comment: stable, no big change Plan: will call back if he needs something RTC in 1m prn Adrian Mills MD Cathy Swain is a 55 year old who presents for the following health issues HPI Hospital Follow-up Visit: Hospital/Fpc/IP Rehab Facility: [facility] Date of Admission: 12/31/2020 Date of Discharge: 01/02/2021 Reason(s) for Admission: Back pain Was your hospitalization related to COVID-19? No Problems taking medications regularly: None Medication changes since discharge: Dilaudid Problems adhering to non-medication therapy: None Summary of hospitalization: See outside records, reviewed and scanned Diagnostic Tests/Treatments reviewed. Follow up needed: none Other Healthcare Providers Involved in Patient???s Care: None Update since discharge: improved. Post Discharge Medication Reconciliation: discharge medications reconciled, continue medications without change. Plan of care communicated with patient Readmitted to [facility] recently for pain. Due for nerve ablation in back for back pain next week. Due tostart rad tx, will find out when this starts next week. Is on hydromorphone, but just until back is addressed and then will be back on oxycodone. Review of Systems Constitutional: Positive for unexpected weight change. Gastrointestinal: Positive for abdominal pain. Musculoskeletal: Positive for back pain. Neurological: Negative. Objective BP 120/72 (BP Location: Right arm, Cuff Size: Adult Regular) Pulse 78 Temp 97.7 ??F (36.5 ??C) (Oral) Resp 16 Ht 1.784 m (5' 10.25) Wt 70.1 kg (154 lb 8 oz) SpO2 100% BMI 22.01 kg/m?? Body mass index is 22.01 kg/m??. Physical Exam Vitals signs reviewed. Eyes: Conjunctiva/sclera: Conjunctivae normal. Cardiovascular: Rate and Rhythm: Normal rate and regular rhythm. Heart sounds: Normal heart sounds. Pulmonary: Effort: Pulmonary effort is normal. Breath sounds: Normal breath sounds. Skin: General: Skin is warm and dry. Neurological: Mental Status: He is alert and oriented to person, place, and time. documented in this encounter Plan of Treatment Not on filedocumented as of this encounter Visit Diagnoses Diagnosis Malignant neoplasm of pancreas, unspecif ied location of malignancy (H) - Primary documented in this encounter Additional Health Concerns Assessment Noted Time PHQ-9 Depression Total Score: 0 11/30/2018 9:17 AM CDT documented as of this encounter Care Teams Acls Specialist Relationship Specialty Start Date End Date Adrian Mills MD PCP - General Family Practice 10/29/12 Adrian Mills MD Assigned PCP 08/30/20 [id number] [address] [address] documented as of this encounter
--- OUTSIDE RECORDS SUMMARY | 2022-06-18 15:54 | XMS_ITS | Encounter Summary ---
:1965 Author Organization [place] Address [address] [place] [address]. [place] [address] Care Team Providers Name Role Phone Adrian Mills MD Primary Care Provider [phone] Adrian Mills MD Unavailable Encounter Details Date Type Department Care Team Description 01/21/2021 Medical Correspondence [facility] Scan, PATIENT PROVIDED Health Info Mgmt Non-Provider COVID Srvcs [address] [place] [id number] Social History Tobacco Use Types Packs/Day Years [...] documented as of this encounter Care Teams Market Developer Relationship Specialty Start Date End Date Adrian Mills MD PCP - General Family Practice 10/29/12 Adrian Mills MD Assigned PCP 08/30/20 [address] [address] [address] documented as of this encounter
--- OUTSIDE RECORDS SUMMARY | 2022-06-18 15:54 | XMS_ITS | Encounter Summary ---
:1965 Author Organization [place] Address [address] [facility] [place] [address] Care Team Providers Name Role Phone Adrian Mills MD Primary Care Provider [phone] Adrian Mills MD Unavailable Reason for Visit Reason Onset Date Comments Patient Request 10/15/2020 update Encounter Details Date Type Department Care Team Description 10/15/2020 Telephone [facility] Gene [facility] Derek Waller MD (update) [address] [facility] [address] [address] [address] [place] [phone] [phone] Social History Tobacco Use Types Packs/Day Years Used Date Never Smoker Smokeless Tobacco: Never Used Alcohol Use Standard Drinks/Week Comments No 0 (1 standard drink = 0.6 oz pure alcoho l) Sex Assigned at Date Recorded Male 01/07/2021 5:29 PM CDT COVID-19 Exposure Response Date Recorded In the last month, have you been in contact with No / Unsure 10/09/2020 7:48 AM JOB SITE SUPERINTENDENT someone who was confirmed or suspected to have Coronavirus / COVID-19? documented as of this encounter Miscellaneous Notes Telephone Encounter - Adrian Mills MD - 10/15/2020 1:45 PM JOB SITE SUPERINTENDENT Updated Adrian Mills MD SITE SUPERINTENDENT Telephone Encounter - Balbir Mobley - 10/15/2020 10:31 AM CST Reason for Call: Other Updated email Detailed comments: Wiliam called back to advise that he had to update his email & the Dr. Mills needs to update the Cannabis registry with the new email of for them to accepthim. Phone Number Patient can be reached at: Home number on file [phone] (home) Best Time: any Can we leave a detailed message on this number? YES Call taken on 10/15/2020 at 10:33 AM by Balbir Mobley SITE SUPERINTENDENT documented in this encounter Plan of Treatment Not on filedocumented as of this encounter Visit Diagnoses Not on filedocumented in this encounter Additional Health Concerns Assessment Noted Time PHQ-9 Depression Total Score: 0 11/30/2018 9:17 AM CDT documented as of this encounter Care Teams R Developer Relationship Specialty Start Date End Date Adrian Mills MD PCP - General Family Practice 10/29/12 Adrian Mills MD Assigned PCP 08/30/20 [address] [address] [address] documented as of this encounter
--- OUTSIDE RECORDS SUMMARY | 2022-06-18 15:54 | XMS_ITS | Encounter Summary ---
:1965 Author Organization [place] Address [address] [place] [address] Care Team Providers Name Role Phone Adrian Mills MD Primary Care Provider [phone] Adrian Mills MD Unavailable Encounter Details Date Type Department Care Team Description 03/26/2021 Lab [facility] Mal ignant neoplasm of [place] [facility] pancreas, [place] [address] [place] [address] e of malignancy (H) [place] [id number] Social History Tobacco Use Types Packs/Day Years [...] Name Priority Date/Time Associated Diagnosis Comme nts HEPATIC FUNCTION Routine 03/26/2021 4:15 PM Malignant neoplasm Results for this PANEL CDT of pancreas, procedure are i n unspecified location the res ults of malignancy (H) section. documented in this encounter Results (ABNORMAL) Hepatic panel (Albumin, ALT, AST, Bili, Alk Phos, TP) (03/26/2021 4:15 PM CDT) [facility] gist Method Time Signature Bilirubin Total 0.5 0.2 - 1.3 03/27/2021 [facility] mg/dL 12:51 PM CDT Bilirubin Direct 0.3 (H) 0.0 - 0.2 03/27/2021 [facility] Y mg/dL 12:51 PM CDT Protein Total 7.3 6.8 - 8.8 03/27/2021 [facility] g/dL 12:51 PM CDT Albumin 3.3 (L) 3.4 - 5.0 03/27/2021 [facility] g/dL 12:51 PM CDT Alkaline 270 (H) 40 - 150 03/27/2021 [facility] Phosphatase U/L 12:51 PM CDT AST 33 0 - 45 U/L 03/27/2021 [facility] 12:51 PM CDT ALT 56 0 - 70 U/L 03/27/2021 [facility] 12:51 PM CDT Specimen Anatomical Collection Method / Collection Time Recei yaniv Time (Source) Location / Volume Laterality Blood STRUCTURE OF RIGHT Venipuncture / 03/26/2021 4:15 03/11 4:15 UPPER LIMB / Unknown PM CDT PM CDT Unknown Adrian Mills MD LAB - BLOOD ORDERABLES Performing Organization Address City/State/ZIP Code Phon e Number [facility] [place], [place] [phone] [place] [facility] [address] [place] [address] Lab (no room number, 1st floor of clinic) [facility] [place], [place] [phone] [place] [phone] [address] Lab (no room number, 1st floor of clinic) documented in this encounter Visit Diagnoses Diagnosis Malignant neoplasm of pancreas, unspecif ied location of malignancy (H) documented in this encounter Additional Health Concerns Assessment Noted Time PHQ-9 Depression Total Score: 0 11/30/2018 9:17 AM CDT documented as of this encounter Care Teams Dogger Relationship Specialty Start Date End Date Adrian Mills MD PCP - General Family Practice 10/29/12 Adrian Mills MD Assigned PCP 08/30/20 [address] [address] [address] documented as of this encounter
--- OUTSIDE RECORDS SUMMARY | 2022-06-18 15:54 | XMS_ITS | Encounter Summary ---
:1965 Author Organization [place] Address [address] [facility] [place] [address] Care Team Providers Name Role Phone Adrian Mills MD Primary Care Provider [phone] Adrian Mills MD Unavailable Reason for Visit Reason Onset Date Comments Patient Request for Note/Letter 02/17/2021 Encounter Details Date Type Department Care Team Description 02/17/2021 [facility] Gene Adrian Patient R equest for Clinic Derek Waller MD Note/Letter [address] [address] [place] [address] [phone] Social History Tobacco Use Types Packs/Day Years Used Date Never Smoker Smokeless Tobacco: Never Used Alcohol Use Standard Drinks/Week Comments No 0 (1 standard drink = 0.6 oz pure alcoho l) Sex Assigned at Date Recorded Male 01/07/2021 5:29 PM CDT documented as of this encounter Miscellaneous Notes Telephone Encounter - Rachel Montgomery - 02/22/2021 11:12 AM CDT Spoke with patient, only needed the referral for the power wheelchair printed and left at the frontend engineer for picking table worker. -Rachel Montgomery Debug Technician Telephone Encounter - Adrian Mills MD - 02/19/2021 2:14 PM CDT I don't see a letter. Perhaps his [address] wrote it? I can write one for him if he needs, I just needto know what it's about. Adrian Mills MD Telephone Encounter - Balbir Mobley - 02/17/2021 9:44 AM CDT Reason for Call: Other letter Detailed comments: needs to get a copy of the letter that Dr. Mills wrote regarding his wheelchair.Did not see any Letters in the chart. Does patient need to have any appointment. Phone Number Patient can be reached at: Home number on file [phone] (home) Best Time: any Can we leave a detailed message on this number? YES Call taken on 02/17/2021 at 9:44 AM by Balbir Mobley documented in this encounter Plan of Treatment Not on filedocumented as of this encounter Visit Diagnoses Not on filedocumented in this encounter Additional Health Concerns Assessment Noted Time PHQ-9 Depression Total Score: 0 11/30/2018 9:17 AM CDT documented as of this encounter Care Teams Metal Worker Relationship Specialty Start Date End Date Adrian Mills MD PCP - General Family Practice 10/29/12 Adrian Mills MD Assigned PCP 08/30/20 [address] [address] [place] [address] documented as of this encounter
--- OUTSIDE RECORDS SUMMARY | 2022-06-18 15:54 | XMS_ITS | Encounter Summary ---
:1965 Author Organization [place] Address [address] [place] [address]. [place] [address] Care Team Providers Name Role Phone Adrian Mills MD Primary Care Provider [phone] Adrian Mills MD Unavailable Reason for Referral Occupational Therapy (Routine) - Closed Specialty Diagnoses / Procedures Referred By Contact Refer red To Contact Diagnoses Malignant neoplasm of pancreas, unspecified location of malignancy (H) Generalized muscle weakness Adrian Mills [facility] [address] [place] [id number] [place] [address] [place] [id number] Referral ID Status Reason Start Date Expiration Date Visits Requ ested Visits Authorized [id number] Closed 12/18/2020 12/18/2021 1 1 Reason for Visit Reason Comments Hospital F/U Encounter Details Date Type Department Care Team Description 12/18/2020 Office Visit [facility] Adrian Hutton Malignant neoplasm of pancreas, unspecified location of malignancy (H) (Primary Dx); Clinic Derek Waller MD Generalized muscle weakness; [address] [address] [facility] Encounter for care related to Port-a-Cat h [place] [id number] [phone] Social History Tobacco Use Types Packs/Day Years [...] Sign Reading Time Taken Comments Blood Pressure 94/68 12/18/2020 1:29 PM CDT Pulse 84 12/18/2020 1:29 PM CDT Temperature 36.5 ??C (97.7 ??F) 12/18/2020 1:29 PM CDT Respiratory Rate 16 12/18/2020 1:29 PM CDT Oxygen Saturation 99% 12/18/2020 1:29 PM CDT Inhaled Oxygen Concentration - - Weight 69.4 kg (153 lb 1.6 oz) 12/18/2020 1:29 PM CDT Height 178.4 cm (5' 10.25) 12/18/2020 1:29 PM CDT Body Mass Index 21.81 12/18/2020 1:29 PM CDT documented in this encounter Progress Notes Adrian Mills MD - 12/18/2020 1:40 PM CDT Assessment and Plan (C25.9) Malignant neoplasm of pancreas, unspecified location of malignancy (H) (primary encounter diagnosis) Comment: bumping up oxycodone dose. Will arrange for scooter as functional capaicty does seem to be declining Plan: oxyCODONE (ROXICODONE) 5 MG tablet, Wheelchair Scooter Order for DME - ONLY FOR DME (M62.81) Generalized muscle weakness Comment: Plan: Wheelchair Scooter Order for DME - ONLY FOR DME (Z45.2) Encounter for care related to Port-a-Cath Comment: Plan: DISCONTINUED: [id number] (LET) 4-0.05-0.5 % GEL topical gel RTC in Adrian Mills MD Cathy Swain is a 55 year old who presents for the following health issues HPI Hospital Follow-up Visit: Hospital/[facility]/IP Rehab Facility: [facility] Date of Admission: 12/11/20 Date of Discharge: 12/12/20 Reason(s) for Admission: OBSTRUCTION INTESTINAL(hcc) Was your hospitalization related to COVID-19? No Problems taking medications regularly: None Medication changes since discharge: yes Problems adhering to non-medication therapy: MARIJUANA Summary of hospitalization: CareEverywhere information obtained and reviewed Diagnostic Tests/Treatments reviewed. Follow up needed: oncology with [facility] Other Healthcare Providers Involved in Patient???s Care: Specialist appointment - oncology, GI at [facility] Update since discharge: improved. Post Discharge Medication Reconciliation: discharge medications reconciled and changed, per note/orders. 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 But has pain, they increased his oxycodone dose. Also noting some back pain, but thinks this is linked to inactivity and being in bed so much. Due to restart chemo 01/05/21. Notes that with weight loss and pain he is having more issues getting around. Was advised that he iseligible for a scooter. Notes accessing port a cath is very painful, advised to ask for topical. Review of Systems Constitutional: Negative. Gastrointestinal: Positive for abdominal pain. Negative for constipation and diarrhea. Genitourinary: Negative. Musculoskeletal: Positive for back pain. Objective BP 94/68 (BP Location: Right arm, Patient Position: Sitting, Cuff Size: Adult Regular) Pulse 84 Temp 97.7 ??F (36.5 ??C) (Oral) Resp 16 Ht 1.784 m (5' 10.25) Wt 69.4 kg (153 lb 1.6 oz) SpO2 99% BMI 21.81 kg/m?? Body mass index is 21.81 kg/m??. Physical Exam Vitals signs reviewed. Eyes: Conjunctiva/sclera: Conjunctivae normal. Cardiovascular: Rate and Rhythm: Normal rate and regular rhythm. Heart sounds: Normal heart sounds. Pulmonary: Effort: Pulmonary effort is normal. Breath sounds: Normal breath sounds. Skin: General: Skin is warm and dry. Neurological: Mental Status: He is alert and oriented to person, place, and time. documented in this encounter Nursing Notes Kami Patterson CMA - 12/18/2020 1:40 PM CDT Chief Complaint Patient presents with ??? Hospital F/U Initial BP 94/68 (BP Location: Right arm, Patient Position: Sitting, Cuff Size: Adult Regular) Pulse 84 Temp 97.7 ??F (36.5 ??C) (Oral) Resp 16 Ht 1.784 m (5' 10.25) Wt 69.4 kg (153 lb 1.6 oz) SpO2 99% BMI 21.81 kg/m?? Estimated body mass index is 21.81 kg/m?? as calculated from the following: Height as of this encounter: 1.784 m (5' 10.25). Weight as of this encounter: 69.4 kg (153 lb 1.6 oz). BP completed using cuff size regular RIGHT arm Kami Patterson CMA documented in this encounter Plan of Treatment Scheduled Referrals Name Type Priority Associated Diagnoses Order S chedule Wheelchair Scooter Referral Routine Malignant neoplasm of Expected: Order for DME - ONLY pancreas, unspecifie d 12/18/2020, Expires: FOR DME location of malignancy 12/18 (H) Generalized muscle weakness documented as of this encounter Visit Diagnoses Diagnosis Malignant neoplasm of pancreas, unspecif ied location of malignancy (H) - Primary Generalized muscle weakness Muscle weakness (generalized) Encounter for care related to Port-a-Cat h Fitting and adjustment of vascular sheldon ter documented in this encounter Additional Health Concerns Assessment Noted Time PHQ-9 Depression Total Score: 0 11/30/2018 9:17 AM CDT documented as of this encounter Care Teams Senior Staff Accountant Relationship Specialty Start Date End Date Adrian Mills MD PCP - General Family Practice 10/29/12 Adrian Mills MD Assigned PCP 08/30/20 [address] [place] [address] documented as of this encounter
--- OUTSIDE RECORDS SUMMARY | 2022-06-18 15:54 | XMS_ITS | Encounter Summary ---
:1965 Author Organization [place] Address [address] [place] [address]. [place] [address] Care Team Providers Name Role Phone Adrian Mills MD Primary Care Provider [phone] Adrian Mills MD Unavailable Encounter Details Date Type Department Care Team Description 12/23/2020 Documentation Only INTERFACED REPORT Unknown, Provider Social History Tobacco Use Types Packs/Day Years [...] documented as of this encounter Care Teams Rehab Therapy Manager Relationship Specialty Start Date End Date Adrian Mills MD PCP - General Family Practice 10/29/12 Adrian Mills MD Assigned PCP 08/30/20 [address] [place] [address] documented as of this encounter
--- OUTSIDE RECORDS SUMMARY | 2022-06-18 15:54 | XMS_ITS | Encounter Summary ---
:1965 Author Organization [place] Address [address] [place] [address]. [place] [address] Care Team Providers Name Role Phone Adrian Mills MD Primary Care Provider [phone] Adrian Mills MD Unavailable Encounter Details Date Type Department Care Team Description 12/02/2020 Documentation Only INTERFACED REPORT Unknown, Provider Social [...] with No / Unsure 11/02/2020 10:35 AM SHELL MACHINE OPERATOR someone who was confirmed or suspected to have Coronavirus / COVID-19? documented as of this encounter Plan of Treatment Not on filedocumented as of this encounter Visit Diagnoses Not on filedocumented in this encounter Additional Health Concerns Assessment Noted Time PHQ-9 Depression Total Score: 0 11/30/2018 9:17 AM CDT documented as of this encounter Care Teams Basket Person Relationship Specialty Start Date End Date Adrian Mills MD PCP - General Family Practice 10/29/12 Adrian Mills MD Assigned PCP 08/30/20 [address] [place] [address] documented as of this encounter
--- OUTSIDE RECORDS SUMMARY | 2022-06-18 15:54 | XMS_ITS | Encounter Summary ---
:1965 Author Organization [place] Address [address] [place] [address] Care Team Providers Name Role Phone Adrian Mills MD Primary Care Provider [phone] Adrian Mills MD Unavailable Reason for Referral Rehab Therapy Integrated Services (Routine) - Closed Specialty Diagnoses / Procedures Referred By Contact Refer red To Contact Diagnoses Malignant neoplasm of pancreas, unspecified location of malignancy (H) [address] [address] Phone: Fax: Referral ID Status Reason Start Date Expiration Date Visits Requ ested Visits Authorized [id number] Closed 12/25/2020 09/10/2021 365 365 Reason for Visit Rehab Therapy Integrated Services (Routine) - Closed Specialty Diagnoses / Procedures Referred By Contact Refer red To Contact Diagnoses Malignant neoplasm of pancreas, unspecified location of malignancy (H) [address] [address] Phone: Fax: Referral ID Status Reason Start Date Expiration Date Visits Requ ested Visits Authorized [id number] Closed 12/25/2020 09/10/2021 365 365 Encounter Details Date Type Department Care Team Description 12/30/2020 [facility] Narda Whitley Ra, APRN VP TALENT MANAGEMENT [address] [place] [address] Malignant neoplasm Encounter Rehabilitation Jyoti Lynch, OT [address] [place] [address] of pancreas, Services [facility] unspecified [address] [facility] location of [address] malignancy (H) [place], [place] [id number] Social History Tobacco Use Types Packs/Day Years Used Date Never Smoker Smokeless Tobacco: Never Used Alcohol Use Standard Drinks/Week Comments No 0 (1 standard drink = 0.6 oz pure alcoho l) Sex Assigned at Date Recorded Male 01/07/2021 5:29 PM CDT COVID-19 Exposure Response Date Recorded In the last month, have you been in contact with No / Unsure 12/30/2020 8:13 AM CDT someone who was confirmed or suspected to have Coronavirus / COVID-19? documented as of this encounter Medications at Time of Discharge Medication Sig Dispensed Refills Start Date End Date lidocaine-prilocaine Apply topically as 30 g 1 021 (EMLA) 2.5-2.5 % needed for other (30 external prior to port access) creamIndications: Encounter for care related to Port-a-Cath oxyCODONE (ROXICODONE) 5 Take 1 tablet (5 mg) 60 tablet 0 0 12/18/2020 01/17/2021 MG tabletIndications: by mouth 2 times Malignant neoplasm of daily as needed for pancreas, unspecified severe pain location of malignancy (H) pantoprazole (PROTONIX) Take 40 mg by mouth 0 10/02/2021 40 MG EC tablet nystatin (MYCOSTATIN) Swish and spit 5 mLs 400 mL 1 10/1301/08/2021 [id number] UNIT/ML (500,000 Units) in suspensionIndications: mouth 4 times daily Thrush documented as of this encounter Progress Notes Jyoti Lynch, OT - 12/30/2020 5:26 PM CDT SEATING AND WHEELED MOBILITY ASSESSMENT 12/30/20 0800 Quick Adds Quick Adds Certification General Information Rehab Discipline OT Funding Preferred [facility];Occupational Therapy;Seating/Wheeled Mobility Evaluation Height 5' Weight 153 Start Of Care Date 12/30/20 Referring Physician Gutierrez Orders Evaluate And Treat As Indicated;Per Therapist Evaluation Orders Date 12/23/20 Others Present at Evaluation Patient/Caregiver Goals scooter Rehabilitation Technology Supplier To be contacted Current Community Support Family/Friend Caregiver Patient role/Employment history Disabled Fall Risk Screen Fall screen completed by OT Have you fallen 2 or more times in the past year? No Have you fallen and had an injury in the past year? No Is patient a fall risk? No Medical History Onset Of Illness/injury Or Date Of Surgery 12/23/20 Medical Diagnosis Malignant neoplasm of pancreas Home Accessibility Living Environment House Primary Entrance Stairs;Covered Ramp (2) Community ADL Transportation Car (Truck with ramp) Community ADL Comments has Ms with group 3 power wheelchair Cognitive/Visual/Hearing Status Vision Intact Hearing Intact ADL Status Feeding Independent Grooming/Hygiene Independent Dressing Independent Toileting Independent Bathing Independent Meal Preparation Independent Home Management Independent Balance Unsupported Sitting Balance Within Functional Limits Sitting Balance in Chair Within Functional Limits Standing Balance Within Functional Limits Ambulation Ambulation Ambulatory Ambulation Assist Independent Ambulation Equipment 4 Wheeled Walker with Seat Ambulation Comments 8.53 for 25 ft with cushion mat maker f/ - helping each other Transfers Transfer Assist Independent;Moderate Assist Neuromuscular Pain Yes Pain Location L abdomen due to stents and chronic back pain Sensory Deficits Reported WFL Head and Neck Head and Neck Position Functional Head Control Good Upper Extremities UE ROM WFL UE Strength 4-/5 Dominance Right Lower Extremities LE ROM WFL LE Strength 4-/5, hip flexion 3+/5 Education Assessment Barriers to Learning Physical Preferred Learning Style Listening;Demonstration Assessment/Plan Criteria for Skilled Interventions Met Yes, Treatment Indicated Treatment Diagnosis impaired participaiton in mradls and iadls Therapy Frequency once Planned Therapy Interventions Wheelchair Management/Propulsion Training Planned Therapy Interventions Comments Educated patient on coveage for power scooter options. Patient has lost significant weight and strength and wants to still participate in hobbies such photographyon trails, swap meets, and car races. Desires a 4 wheeled scooter with shocks. Will attempt to assist wtih collaboration with vendor as possible. Risks and benefits of treatment have been explained Yes Patient/family & other staff in agreement with plan of care Yes Comments Collaboration with [employer] whom cannot bill preferred one and then Reliable. Session Time OT Wheelchair Management Minutes ([id number]) 30 Certification Certification date from 12/30/20 Certification date to 12/30/20 Adult OT Eval Goals OT Eval Goals (Adult) 1 OT Goal 1 Goal Identifier scooter Goal Description Patient/family demonstrates understanding of equipment for independent mobility, including benefits/limitations Target Date 12/30/20 Date Met 12/30/20 Pride Power Operated Vehicle / Scooter - This device is being requested for this patient with mobility impairments to allow him to be able to complete all of his community mobility in a safe fashion, without risk of injury from falling, and in a reasonable time frame. He demonstrated during that he was able to transfer to/from the requested scooter, operate the tiller steering system, able to maintain postural stability and position while operating the POV, and operate the on/off mechanism and the speed dial appropriately and safely. They are very willing and physically / cognitively able to use the recommended equipment to assist with community mobility. There is a mobility limitation that cannotbe sufficiently and safely resolved by the use of an appropriately fitted cane or walker and they donot have sufficient upper extremity function to self-propel an optimally-configured manual wheelchair long distances during a typical day due to limitations in strength, endurance, range of motion, andcoordination. This equipment is reasonable and necessary with reference to accepted standards of medical practice and treatment of this patient's condition and is not being recommended as a convenienceitem. Without this recommended equipment, he is highly likely to sustain injuries from falls which those costs far exceed the cost of the requested equipment. Electronically signed by: Jyoti COLON, ATP Occupational Therapist, Assistive Teaching Associate [phone] fax: [phone] [email or web address] Seating Clinic- [facility], [address] [place] [address] December 30, 2020 I have read and concur with the above recommendations. Physician Printed Name Physician SIgnature Date of SIgnature Physician Phone documented in this encounter Plan of Treatment Scheduled Referrals Name Type Priority Associated Diagnoses Order S chedule Wheelchair Scooter Referral Routine Malignant neoplasm of 1 Occurrences starting Order for DME - ONLY pancreas, unspecifie d 12/30/2020 until FOR DME location of malignancy 12/30 (H) documented as of this encounter Visit Diagnoses Diagnosis Malignant neoplasm of pancreas, unspecif ied location of malignancy (H) documented in this encounter Additional Health Concerns Assessment Noted Time PHQ-9 Depression Total Score: 0 11/30/2018 9:17 AM CDT documented as of this encounter Care Teams Supervisor Rolling Room Relationship Specialty Start Date End Date Adrian Mills MD PCP - General Family Practice 10/29/12 Adrian Mills MD Assigned PCP 08/30/20 [address] [place] [address] documented as of this encounter
--- OUTSIDE RECORDS SUMMARY | 2022-06-18 15:54 | XMS_ITS | Encounter Summary ---
:1965 Author Organization [facility] [facility] Address [address] [place] [address] Care Team Providers Name Role Phone Adrian Mills MD Primary Care Provider [phone] Adrian Mills MD Unavailable Encounter Details Date Type Department Care Team Description 12/01/2020 [facility] [id number] Social History Tobacco Use Types Packs/Day Years Used Date Never Smoker Smokeless Tobacco: Never Used Alcohol Use Standard Drinks/Week Comments No 0 (1 standard drink = 0.6 oz pure alcoho l) Sex Assigned at Date Recorded Male 01/07/2021 5:29 PM CDT COVID-19 Exposure Response Date Recorded In the last month, have you been in contact with No / Unsure 11/02/2020 10:35 AM COMMERCIAL FRONT LOAD OPERATOR someone who was confirmed or suspected to have Coronavirus / COVID-19? documented as of this encounter Plan of Treatment Not on filedocumented as of this encounter Visit Diagnoses Not on filedocumented in this encounter Additional Health Concerns Assessment Noted Time PHQ-9 Depression Total Score: 0 11/30/2018 9:17 AM CDT documented as of this encounter Care Teams Tubing Tester Relationship Specialty Start Date End Date Adrian Mills MD PCP - General Family Practice 10/29/12 Adrian Mills MD Assigned PCP 08/30/20 [address] [address] [place] [address] documented as of this encounter
--- OUTSIDE RECORDS SUMMARY | 2022-06-18 15:54 | XMS_ITS | Encounter Summary ---
:1965 Author Organization [place] Address [address] [place] [place] [address] Care Team Providers Name Role Phone Adrian Mills MD Primary Care Provider [phone] Adrian Mills MD Unavailable Reason for Visit Reason Onset Date Comments Medication Question 12/18/2020 LET alternate Encounter Details Date Type Department Care Team Description 12/18/2020 Telephone [facility] Adrian Mills Medicatio n Question Clinic Derek Waller MD (LET alternate) [address] [address] [place] [address] [phone] Social History Tobacco Use Types Packs/Day Years [...] Telephone Encounter - Adrian Mills MD - 12/18/2020 3:16 PM CDT New Rx sent Adrian Mills MD Telephone Encounter - Dennis Brink, RN - 12/18/2020 2:51 PM CDT Pharmacy calls, Regarding Ihpm-zaywbwefpdp-rswvyproqj gel prescribed today, pharmacy does not have this in stock andis unable to find another pharmacy that does. Pharmacist offers Emla cream as an alternative states that this is not the same thing, but it is used prior to port access. Routing to PCP to verify if this is an acceptable alternate. Pharmacy callback: [phone] Dennis Brink RN documented in this encounter Plan of Treatment Not on filedocumented as of this encounter Visit Diagnoses Diagnosis Encounter for care related to Port-a-Cat h - Primary Fitting and adjustment of vascular sheldon ter documented in this encounter Additional Health Concerns Assessment Noted Time PHQ-9 Depression Total Score: 0 11/30/2018 9:17 AM CDT documented as of this encounter Care Teams Fastener Sewing Machine Operator Relationship Specialty Start Date End Date Adrian Mills MD PCP - General Family Practice 10/29/12 Adrian Mills MD Assigned PCP 08/30/20 [address] [place] [address] documented as of this encounter
--- OUTSIDE RECORDS SUMMARY | 2022-06-18 15:54 | XMS_ITS | Encounter Summary ---
:1965 Author Organization [place] Address [address] [facility] [place] [address] Care Team Providers Name Role Phone Adrian Mills MD Primary Care Provider [phone] Adrian Mills MD Unavailable Reason for Visit Reason Onset Date Comments Forms 01/26/2021 Treatment Plan - [facility] [employer] [facility] Encounter Details Date Type Department Care Team Description 01/26/2021 Telephone [facility] Adrian Mills Forms (Tr eatment Plan Clinic Derek Waller MD - [facility] [address] [address] [address] [facility] [place] [phone] Social History Tobacco Use Types Packs/Day Years [...] Notes Telephone Encounter - Rachel Montgomery - 01/27/2021 2:38 PM CDT Sent form back and advised to send to PT's [place] oncologist. -Rachel Montgomery Credit Card Interviewer Telephone Encounter - Adrian Mills MD - 01/26/2021 1:50 PM CDT This would best be addressed by his [place] oncologist. Adrian Mills MD Telephone Encounter - Rachel Montgomery - 01/26/2021 8:57 AM CDT Received Treatment Plan, placed in PCP's in basket. Please review, sign and fax back to [phone]. documented in this encounter Plan of Treatment Not on filedocumented as of this encounter Visit Diagnoses Not on filedocumented in this encounter Additional Health Concerns Assessment Noted Time PHQ-9 Depression Total Score: 0 11/30/2018 9:17 AM CDT documented as of this encounter Care Teams Knot Borer Relationship Specialty Start Date End Date Adrian Mills MD PCP - General Family Practice 10/29/12 Adrian Mills MD Assigned PCP 08/30/20 [address] [place] [address] documented as of this encounter
--- OUTSIDE RECORDS SUMMARY | 2022-06-18 15:54 | XMS_ITS | Encounter Summary ---
:1965 Author Organization [place] Address [address] [place] [address] Care Team Providers Name Role Phone Adrian Mills MD Primary Care Provider [phone] Adrian Mills MD Unavailable Reason for Visit Reason Onset Date Comments Refill Request 12/20/2021 Unavailable: lidocai ne-prilocaine (EMLA) 2.5-2.5 % external cream Encounter Details Date Type Department Care Team Description 12/20/2021 Telephone [facility] Adrian Mills Refill Re [facility] Derek Waller MD (Unavailable: [address] lidocaine-prilocaine [place], [place] [address] (EMLA) 2.5-2.5 % [id number] external cream) [phone] Social History Tobacco Use Types Packs/Day Years Used Date Never Smoker Smokeless Tobacco: Never Used Alcohol Use Standard Drinks/Week Comments No 0 (1 standard drink = 0.6 oz pure alcoho l) Sex Assigned at Date Recorded Male 01/07/2021 5:29 PM CDT documented as of this encounter Miscellaneous Notes Telephone Encounter - Adrian Mills MD - 12/20/2021 4:18 PM CDT Route to prescribing provider - probably through [place]. Adrian Mills MD Telephone Encounter - Ruben Ponce, RN - 12/20/2021 10:32 AM CDT See pharmacy note below requesting alternative medication. Ruben Jacques RN Telephone Encounter - Rachel Alvarez - 12/20/2021 10:29 AM CDT Pharmacy: Drug not available; lidocaine-prilocaine (EMLA) 2.5-2.5 % external cream. Please send alternative. documented in this encounter Plan of Treatment Not on filedocumented as of this encounter Visit Diagnoses Diagnosis Encounter for care related to [place] h Fitting and adjustment of vascular [address] ter documented in this encounter Additional Health Concerns Assessment Noted Time PHQ-9 Depression Total Score: 0 11/30/2018 9:17 AM CDT documented as of this encounter Care Teams Electrical Equipment Tester Relationship Specialty Start Date End Date Adrian Mills MD PCP - General Family Practice 10/29/12 Adrian Mills MD Assigned PCP 08/30/20 [address] [address] [place] [address] documented as of this encounter
--- OUTSIDE RECORDS SUMMARY | 2022-06-18 15:54 | XMS_ITS | Encounter Summary ---
:1965 Author Organization [place] Address [address] [facility] [place] [address] Care Team Providers Name Role Phone Adrian Mills MD Primary Care Provider Adrian Mills MD Unavailable Reason for Visit Reason Onset Date Comments Medication Question 11/02/2020 Clarification 11/02/2020 Encounter Details Date Type Department Care Team Description 11/02/2020 Telephone [facility] Adrian Mills Medicatio n Question; Clinic Derek Waller MD Clarification [address] [address] [place] [address] [phone] Social History Tobacco Use Types Packs/Day Years Used Date Never Smoker Smokeless Tobacco: Never Used Alcohol Use Standard Drinks/Week Comments No 0 (1 standard drink = 0.6 oz pure alcoho l) Sex Assigned at Date Recorded Male 01/07/2021 5:29 PM CDT COVID-19 Exposure Response Date Recorded In the last month, have you been in contact with No / Unsure 11/02/2020 10:35 AM MATRIX PLATER someone who was confirmed or suspected to have Coronavirus / COVID-19? documented as of this encounter Miscellaneous Notes Telephone Encounter - Cassidy Grover RN - 11/02/2020 2:30 PM CST Will forward to Dr. Mills for advisal. IX PLATER Telephone Encounter - Sandeep Diaz - 11/02/2020 12:17 PM CST Reason for Call: Other prescription Detailed comments: Pharmacy wants clarity on instructions for oxyCODONE (ROXICODONE) 5 MG. Please resend with one set of directions. Phone Number Patient can be reached at: Other phone number: na Best Time: any Can we leave a detailed message on this number? YES Call taken on 11/02/2020 at 12:17 PM by Sandeep Diaz IX PLATER documented in this encounter Plan of Treatment Not on filedocumented as of this encounter Visit Diagnoses Diagnosis Malignant neoplasm of pancreas, unspecif ied location of malignancy (H) documented in this encounter Additional Health Concerns Assessment Noted Time PHQ-9 Depression Total Score: 0 11/30/2018 9:17 AM CDT documented as of this encounter Care Teams Nail Mill Worker Relationship Specialty Start Date End Date Adrian Mills MD PCP - General Family Practice 10/29/12 Adrian Mills MD Assigned PCP 08/30/20 [address] [address] [place] [address] documented as of this encounter
--- OUTSIDE RECORDS SUMMARY | 2022-06-18 15:54 | XMS_ITS | Encounter Summary ---
:1965 Author Organization [place] Address [address] [facility] [place] [address] Care Team Providers Name Role Phone Adrian Mills MD Primary Care Provider [phone] Adrian Mills MD Unavailable Reason for Visit Reason Onset Date Comments Orders 11/10/2020 [facility] 11/06/20 Encounter Details Date Type Department Care Team Description 11/10/2020 Telephone [facility] Adrian Mills Orders ([facility] Derek Waller MD [facility] [address] 11/06/20) [place] [address] [phone] Social History Tobacco Use Types Packs/Day Years Used Date Never Smoker Smokeless Tobacco: Never Used Alcohol Use Standard Drinks/Week Comments No 0 (1 standard drink = 0.6 oz pure alcoho l) Sex Assigned at Date Recorded Male 01/07/2021 5:29 PM CDT COVID-19 Exposure Response Date Recorded In the last month, have you been in contact with No / Unsure 11/02/2020 10:35 AM HOT ROLLER someone who was confirmed or suspected to have Coronavirus / COVID-19? documented as of this encounter Miscellaneous Notes Telephone Encounter - Rachel Montgomery - 11/11/2020 3:51 PM CST Orders faxed to [phone]. -Rachel Montgomery Rod Pointer ROLLER Telephone Encounter - Adrian Mills MD - 11/10/2020 4:06 PM HOT ROLLER Signed Adrian Mills MD ROLLER Telephone Encounter - Balbir Mobley - 11/10/2020 2:14 PM CST Received orders, placed in Dr. Lugo in basket. Please review, sign and fax back to [phone]. ROLLER documented in this encounter Plan of Treatment Not on filedocumented as of this encounter Visit Diagnoses Not on filedocumented in this encounter Additional Health Concerns Assessment Noted Time PHQ-9 Depression Total Score: 0 11/30/2018 9:17 AM CDT documented as of this encounter Care Teams Toxics Program Officer Relationship Specialty Start Date End Date Adrian Mills MD PCP - General Family Practice 10/29/12 Adrian Mills MD Assigned PCP 08/30/20 [address] [address] [address] documented as of this encounter
--- OUTSIDE RECORDS SUMMARY | 2022-06-18 15:54 | XMS_ITS | Encounter Summary ---
:1965 Author Organization [place] Address [address] [facility] [place] [address] Care Team Providers Name Role Phone Adrian Mills MD Primary Care Provider [phone] Adrian Mills MD Unavailable Reason for Visit Reason Onset Date Comments Refill Request 12/03/2020 oxyCODONE (ROXICODON E) 5 MG tablet Encounter Details Date Type Department Care Team Description 12/03/2020 Refill [facility] Adrian Mills Refill Re [facility] Kortney Waller MD (oxyCODONE (ROXICODONE) [address] 5 MG tablet ) [place] [id number] [phone] Social History Tobacco Use Types Packs/Day Years Used Date Never Smoker Smokeless Tobacco: Never Used Alcohol Use Standard Drinks/Week Comments No 0 (1 standard drink = 0.6 oz pure alcoho l) Sex Assigned at Date Recorded Male 01/07/2021 5:29 PM CDT documented as of this encounter Miscellaneous Notes Telephone Encounter - Yarely Morel RN - 12/03/2020 10:23 AM CDT oxyCODONE (ROXICODONE) 5 MG tablet Last Written Prescription Date: 11/02/2020 Last Fill Quantity: 60, # refills: 0 Last Office Visit: 11/02/2020 (VIRTUAL VISIT) Future Office visit: Routing refill request to provider for review/approval because: Drug not on the [facility], P or Health refill protocol or controlled substance. Yarely Morel RN Telephone Encounter - Charline Carey - 12/03/2020 10:17 AM CDT Wiliam needs refill of his oxyCODONE (ROXICODONE) 5 MG tablet sent to [facility] [place], [place] - [address] [facility] Lorin Aurelio- Linseed Oil Press Tender documented in this encounter Plan of Treatment Not on filedocumented as of this encounter Visit Diagnoses Diagnosis Malignant neoplasm of pancreas, unspecif ied location of malignancy (H) documented in this encounter Additional Health Concerns Assessment Noted Time PHQ-9 Depression Total Score: 0 11/30/2018 9:17 AM CDT documented as of this encounter Care Teams Radiology Aide Relationship Specialty Start Date End Date Adrian Mills MD PCP - General Family Practice 10/29/12 Adrian Mills MD Assigned PCP 08/30/20 [address] [place] [address] documented as of this encounter
--- OUTSIDE RECORDS SUMMARY | 2022-06-18 15:54 | XMS_ITS | Encounter Summary ---
:1965 Author Organization [place] Address [address] [facility] [place] [address] Care Team Providers Name Role Phone Adrian Mills MD Primary Care Provider [phone] Adrian Mills MD Unavailable Reason for Visit Reason Onset Date Comments Patient Cancelled Erroneous encounter-disregard 10/02/2020 Encounter Details Date Type Department Care Team Description 10/01/2020 Virtual Visit [facility] Adrian Mills [facility] Derek Waller MD ENCOUNTER--DISREGARD [address] (Primary Dx) [place] [address] [phone] Social History Tobacco Use Types Packs/Day Years Used Date Never Smoker Smokeless Tobacco: Never Used Alcohol Use Standard Drinks/Week Comments No 0 (1 standard drink = 0.6 oz pure alcoho l) Sex Assigned at Date Recorded Male 01/07/2021 5:29 PM CDT documented as of this encounter Progress Notes Nohemi Ngo MA - 10/01/2020 1:00 PM CST Patient needed to cancel appointment. He is at [facility] currently. STAVE ASSEMBLER Adrian Mills MD - 10/01/2020 1:00 PM CST This encounter was opened in error. Please disregard. STAVE ASSEMBLER documented in this encounter Plan of Treatment Not on filedocumented as of this encounter Visit Diagnoses Diagnosis ERRONEOUS ENCOUNTER--DISREGARD - Primary documented in this encounter Additional Health Concerns Assessment Noted Time PHQ-9 Depression Total Score: 0 11/30/2018 9:17 AM CDT documented as of this encounter Care Teams Bridge Carpenter Relationship Specialty Start Date End Date Adrian Mills MD PCP - General Family Practice 10/29/12 Adrian Mills MD Assigned PCP 08/30/20 [address] [address] [place] [address] documented as of this encounter
--- OUTSIDE RECORDS SUMMARY | 2022-06-18 15:54 | XMS_ITS | Encounter Summary ---
:1965 Author Organization [place] Address [address] [place] [address]. [place] [address] Care Team Providers Name Role Phone Adrian Mills MD Primary Care Provider [phone] Adrian Mills MD Unavailable Encounter Details Date Type Department Care Team Description 01/08/2021 Travel Social History Tobacco Use Types Packs/Day [...] documented as of this encounter Care Teams Vascular Sonographer Relationship Specialty Start Date End Date Adrian Mills MD PCP - General Family Practice 10/29/12 Adrian Mills MD Assigned PCP 08/30/20 [address] [place] [address] documented as of this encounter
--- OUTSIDE RECORDS SUMMARY | 2022-06-18 15:54 | XMS_ITS | Encounter Summary ---
:1965 Author Organization [place] Address [address] [facility] [place] [address] Care Team Providers Name Role Phone Adrian Mills MD Primary Care Provider [phone] Adrian Mills MD Unavailable Reason for Visit Reason Onset Date Comments Patient Request 03/25/2021 Encounter Details Date Type Department Care Team Description 03/25/2021 Telephone [facility] Adrian Mills, Patient Request Derek WATTERS [address] [address] [place] [address] [place] [address] [phone] (Wo rk) Social History Tobacco Use Types Packs/Day Years Used Date Never Smoker Smokeless Tobacco: Never Used Alcohol Use Standard Drinks/Week Comments No 0 (1 standard drink = 0.6 oz pure alcoho l) Sex Assigned at Date Recorded Male 01/07/2021 5:29 PM CDT documented as of this encounter Miscellaneous Notes Telephone Encounter - Rachel Montgomery - 03/26/2021 1:24 PM CDT Patient scheduled with lab for today. -Rachel Montgomery Room Service Associate Telephone Encounter - Adrian iMlls MD - 03/25/2021 3:23 PM CDT Order placed, please call to schedule lab only appt Adrian Mills MD Telephone Encounter - Racehl Montgomery - 03/25/2021 10:04 AM CDT Patient recently discharged from [facility] on 03/20/2021 and was told to have PCP order liver function test for F/U. Would you prefer to see the patient for hospital F/U, if so when? Otherwise please place orders and return call to patient to advise. -Rachel Irvinniurka Room Service Associate documented in this encounter Plan of Treatment Not on filedocumented as of this encounter Results (ABNORMAL) Hepatic panel (Albumin, ALT, AST, Bili, Alk Phos, TP) (03/26/2021 4:15 PM CDT) Patholo gist Method Time Signature Bilirubin Total 0.5 [...] City/State/ZIP Code Phon e Number [facility] [place] [place] [phone] [place] [facility] [phone] Lab (no room number, 1st floor of clinic) [facility] [place], [place] [phone] [facility] [place] [address], [facility] [address] Lab (no room number, 1st floor of clinic) documented in this encounter Visit Diagnoses Diagnosis Malignant neoplasm of pancreas, unspecif ied location of malignancy (H) - Primary documented in this encounter Additional Health Concerns Assessment Noted Time PHQ-9 Depression Total Score: 0 11/30/2018 9:17 AM CDT documented as of this encounter Care Teams Vp Customer Service Relationship Specialty Start Date End Date Adrian Mills MD PCP - General Family Practice 10/29/12 Adrian Mills MD Assigned PCP 08/30/20 [address] [place] [address] documented as of this encounter
--- OUTSIDE RECORDS SUMMARY | 2022-06-18 15:54 | XMS_ITS | Encounter Summary ---
:1965 Author Organization [place] Address [address] [facility] [place] [address] Care Team Providers Name Role Phone Adrian Mills MD Primary Care Provider [phone] Adrian Mills MD Unavailable Encounter Details Date Type Department Care Team Description 10/29/[address] [facility] Adrian Mills DIAGNOSIS NOT YET Clinic Derek Waller MD DEFINED (Primary Dx) [address] [address] [place] [address] [phone] Social History Tobacco Use Types Packs/Day Years Used Date Never Smoker Smokeless Tobacco: Never Used Alcohol Use Standard Drinks/Week Comments No 0 (1 standard drink = 0.6 oz pure alcoho l) Sex Assigned at Date Recorded Male 01/07/2021 5:29 PM CDT COVID-19 Exposure Response Date Recorded In the last month, have you been in contact with No / Unsure 11/02/2020 10:35 AM ATOMIC PHYSICS TEACHER someone who was confirmed or suspected to have Coronavirus / COVID-19? documented as of this encounter Plan of Treatment Not on filedocumented as of this encounter Procedures Procedure Name Priority Date/Time Associated Diagnosis Comme nts [place] MD CERTIFICATION TAX ADJUSTER Routine 10/29/2020 DIAGNOSIS NOT YET DEFINED PATIENT documented in this encounter Results MD CERTIFICATION TAX ADJUSTER PATIENT (10/29/2020) Narrative This result has an attachment that is no t available. Adrian Mills MD SPECIAL REPORTS documented in this encounter Visit Diagnoses Diagnosis DIAGNOSIS NOT YET DEFINED - Primary documented in this encounter Additional Health Concerns Assessment Noted Time PHQ-9 Depression Total Score: 0 11/30/2018 9:17 AM CDT documented as of this encounter Care Teams Perinatal Nurse Relationship Specialty Start Date End Date Adrian Mills MD PCP - General Family Practice 10/29/12 Adrian Mills MD Assigned PCP 08/30/20 [address] [place] [address] documented as of this encounter
--- OUTSIDE RECORDS SUMMARY | 2022-06-18 15:54 | XMS_ITS | Encounter Summary ---
:1965 Author Organization [place] Address [address] [facility] [place] [address] Care Team Providers Name Role Phone Adrian Mills MD Primary Care Provider [phone] Adrian Mills MD Unavailable Reason for Visit Reason Onset Date Comments Patient Request 12/30/2021 Encounter Details Date Type Department Care Team Description 12/30/2021 [facility] Adrian Mills, Patient Request Derek W[address]TERS [address] [address] [place] [address] [place] [address] [phone] (Wo rk) Social History Tobacco Use Types Packs/Day Years Used Date Never Smoker Smokeless Tobacco: Never Used Alcohol Use Standard Drinks/Week Comments No 0 (1 standard drink = 0.6 oz pure alcoho l) Sex Assigned at Date Recorded Male 01/07/2021 5:29 PM CDT documented as of this encounter Miscellaneous Notes Telephone Encounter - Charline Carey - 01/04/2022 1:15 PM CDT Spoke with pt to inform that it has been completed. Lorin Carey- Cigar Head Holer Telephone Encounter - Adrian Mills MD - 01/04/2022 1:10 PM CDT Completed Adrian Mills MD Telephone Encounter - Balbir Mobley - 12/30/2021 10:59 AM CDT Routing to PCP, Telephone Encounter - Inez Rao - 12/30/2021 10:57 AM CDT Reason for Call: Patient request Detailed comments: Patient forgot to renew license and would like to be put back on the medical cannabis program again. Please call. Phone Number Patient can be reached at: Home number on file [phone] (home) Best Time: any Can we leave a detailed message on this number? YES Call taken on 12/30/2021 at 10:57 AM by Inez Rao documented in this encounter Plan of Treatment Not on filedocumented as of this encounter Visit Diagnoses Not on filedocumented in this encounter Additional Health Concerns Assessment Noted Time PHQ-9 Depression Total Score: 0 11/30/2018 9:17 AM CDT documented as of this encounter Care Teams Blow Pit Operator Relationship Specialty Start Date End Date Adrian Mills MD PCP - General Family Practice 10/29/12 Adrian Mills MD Assigned PCP 08/30/20 [address] [address] [place] [address] documented as of this encounter
--- OUTSIDE RECORDS SUMMARY | 2022-06-18 15:54 | XMS_ITS | Encounter Summary ---
:1965 Author Organization [place] Address [address] [facility] [place] [address] Care Team Providers Name Role Phone Adrian Mills MD Primary Care Provider [phone] Adrian Mills MD Unavailable Reason for Visit Reason Comments Consult Encounter Details Date Type Department Care Team Description 10/09/[address] [facility] Adrian Mills Malignant neoplasm of pancreas, unspecified location of malignancy (H) (Primary Dx); Clinic Derek Waller MD Medical marijuana use [address] [address] [place] [address] [phone] Social History Tobacco Use Types Packs/Day Years Used Date Never Smoker Smokeless Tobacco: Never Used Alcohol Use Standard Drinks/Week Comments No 0 (1 standard drink = 0.6 oz pure alcoho l) Sex Assigned at Date Recorded Male 01/07/2021 5:29 PM CDT COVID-19 Exposure Response Date Recorded In the last month, have you been in contact with No / Unsure 10/09/2020 7:48 AM COMPUTER SERVICE TECHNICIAN someone who was confirmed or suspected to have Coronavirus / COVID-19? documented as of this encounter Last Filed Vital Signs Vital Sign Reading Time Taken Comments Blood Pressure 84/66 10/09/2020 8:08 AM COMPUTER SERVICE TECHNICIAN Pulse 114 10/09/2020 8:08 AM COMPUTER SERVICE TECHNICIAN Temperature 36.7 ??C (98 ??F) 10/09/2020 8:08 AM COMPUTER SERVICE TECHNICIAN Respiratory Rate 14 10/09/2020 8:08 AM COMPUTER SERVICE TECHNICIAN Oxygen Saturation 97% 10/09/2020 8:08 AM COMPUTER SERVICE TECHNICIAN Inhaled Oxygen Concentration - - Weight 73 kg (161 lb) 10/09/2020 8:08 AM COMPUTER SERVICE TECHNICIAN Height - - Body Mass Index 22.61 02/25/2019 4:18 PM CDT documented in this encounter Progress Notes Adrian Mills MD - 10/09/2020 8:00 AM CST Assessment and Plan (C25.9) Malignant neoplasm of pancreas, unspecified location of malignancy (H) Comment: certified for medical marijuana use. Being seen at [place] for cacner and chemo, due to start next week. Having cancer based pain plus weight loss, no anorexia yet, but has been told to expect that once he start chemo Plan: Hospital Bed Order for DME - ONLY FOR DME (Z79.899) Medical marijuana use Comment: Plan: RTC in 6m Adrian Mills MD Cathy Swain is a 55 year old who presents to clinic today for the following health issues HPI Patient is here to discuss medical marijuana, and getting a home hospital bed. Issues with pain, concerned with potential loss of appetite once he starts chemo therapy. Also having difficulty getting in and out of bed and sleep without pain, would like an order for a hospital bed. Review of Systems Constitutional: Positive for fatigue and unexpected weight change. Respiratory: Negative. Cardiovascular: Negative. Gastrointestinal: Positive for abdominal distention and abdominal pain. Neurological: Negative. Objective BP (!) 84/66 (BP Location: Right arm, Patient Position: Sitting, Cuff Size: Adult Regular) Pulse 114 Temp 98 ??F (36.7 ??C) (Oral) Resp 14 Wt 73 kg (161 lb) SpO2 97% BMI 22.61 kg/m?? Body mass index is 22.61 kg/m??. Physical Exam Vitals signs and nursing note reviewed. Skin: General: Skin is warm and dry. Neurological: General: No focal deficit present. Mental Status: He is alert. UTER SERVICE TECHNICIAN documented in this encounter Plan of Treatment Not on filedocumented as of this encounter Visit Diagnoses Diagnosis Malignant neoplasm of pancreas, unspecif ied location of malignancy (H) - Primary Medical marijuana use Encounter for long-term (current) use of other medications documented in this encounter Additional Health Concerns Assessment Noted Time PHQ-9 Depression Total Score: 0 11/30/2018 9:17 AM CDT documented as of this encounter Care Teams Park Manager Relationship Specialty Start Date End Date Adrian Mills MD PCP - General Family Practice 10/29/12 Adrian Mills MD Assigned PCP 08/30/20 [address] [place] [address] documented as of this encounter
--- OUTSIDE RECORDS SUMMARY | 2022-06-18 15:54 | XMS_ITS | Encounter Summary ---
:1965 Author Organization [place] Address [address] [facility] [place] [address] Care Team Providers Name Role Phone Adrian Mills MD Primary Care Provider [phone] Adrian Mills MD Unavailable Reason for Visit Reason Onset Date Comments Medication Question 12/21/2020 Oxycodone Encounter Details Date Type Department Care Team Description 12/21/2020 Refill [facility] Adrian Mills Medicatio n Question Clinic Derek Waller MD (Oxycodone) [address] [address] [place] [address] [phone] Social History Tobacco Use Types Packs/Day Years [...] Telephone Encounter - Yarely Morel RN - 01/01/2021 9:04 AM CDT Patient currently in the hospital. Yarely Morel RN Telephone Encounter - Sonia Noguera RN - 12/24/2020 2:05 PM CDT LMTCB. Sonia Noguera RN Telephone Encounter - Jeewl Benavidez PA-C - 12/22/2020 12:31 PM CDT I believe he has enough for now. Please confirm. Note not complete from most recent visit so will defer until PCP returns and refills can be updated at that time Telephone Encounter - Yarely Morel RN - 12/21/2020 5:21 PM CDT Office Visit notes from 12/18/[address] 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 But has pain, they increased his oxycodone dose. Also noting some back pain, but thinks this is linked to inactivity and being in bed so much. Yarely Morel RN Telephone Encounter - Balbir Mobley - 12/21/2020 3:39 PM CDT Patient states this was suppose to be 2 tablets 3x a day. Patient is aware that Dr. Mills is out of the clinic. documented in this encounter Plan of Treatment Not on filedocumented as of this encounter Visit Diagnoses Diagnosis Malignant neoplasm of pancreas, unspecif ied location of malignancy (H) documented in this encounter Additional Health Concerns Assessment Noted Time PHQ-9 Depression Total Score: 0 11/30/2018 9:17 AM CDT documented as of this encounter Care Teams Supervisor Lime Relationship Specialty Start Date End Date Adrian Mills MD PCP - General Family Practice 10/29/12 Adrian Mills MD Assigned PCP 08/30/20 [address] [address] [place] [address] documented as of this encounter
--- OUTSIDE RECORDS SUMMARY | 2022-06-18 15:54 | XMS_ITS | Encounter Summary ---
:1965 Author Organization [place] Address [address] [facility] [place] [address] Care Team Providers Name Role Phone Adrian Mills MD Primary Care Provider [phone] Adrian Mills MD Unavailable Reason for Visit Reason Onset Date Comments Pt. Information/instruction 02/05/2021 Encounter Details Date Type Department Care Team Description 02/05/[address] [facility] Adrian Mills Pt. Clinic Derek Waller MD Information/instructio [address] [address] [place] [phone] Social History Tobacco Use Types Packs/Day Years [...] Notes Telephone Encounter - Rachel Montgomery - 02/05/2021 4:38 PM CDT Briana, with [employer], calling to advise that she is the patient Information Security Associate through [employer] and if you'd like to consult with her please call [phone]. -Rachel Montgomery Acid Correction Hand documented in this encounter Plan of Treatment Not on filedocumented as of this encounter Visit Diagnoses Not on filedocumented in this encounter Additional Health Concerns Assessment Noted Time PHQ-9 Depression Total Score: 0 11/30/2018 9:17 AM CDT documented as of this encounter Care Teams Implementation Coordinator Relationship Specialty Start Date End Date Adrian Mills MD PCP - General Family Practice 10/29/12 Adrian Mills MD Assigned PCP 08/30/20 [address] [address] documented as of this encounter
--- OUTSIDE RECORDS SUMMARY | 2022-06-18 15:54 | XMS_ITS | Encounter Summary ---
:1965 Author Organization [facility] Address [address] [place] [address]. [place] [address] Care Team Providers Name Role Phone Adrian Mills MD Primary Care Provider [phone] Adrian Mills MD Unavailable Encounter Details Date Type Department Care Team Description 12/30/2020 Travel Social History Tobacco Use Types Packs/Day [...] documented as of this encounter Care Teams Marketing Education Teacher Relationship Specialty Start Date End Date Adrian Mills MD PCP - General Family Practice 10/29/12 Adrian Mills MD Assigned PCP 08/30/20 [address] [place] [address] documented as of this encounter
--- OUTSIDE RECORDS SUMMARY | 2022-06-18 15:54 | XMS_ITS | Encounter Summary ---
:1965 Author Organization [place] Address [address] [facility] [place] [address] Care Team Providers Name Role Phone Adrian Mills MD Primary Care Provider [phone] Adrian Mills MD Unavailable Reason for Visit Reason Comments Video Visit Hospital F/U Encounter Details Date Type Department Care Team Description 11/02/2020 Virtual Visit [facility] Adrian Mills ( Primary Dx); Clinic Derek Waller MD Malignant neoplasm of pancreas, unspecif ied location of malignancy (H) [address] [facility] [address] [address] [address] [place] [address] [phone] Social History Tobacco Use Types Packs/Day Years Used Date Never Smoker Smokeless Tobacco: Never Used Alcohol Use Standard Drinks/Week Comments No 0 (1 standard drink = 0.6 oz pure alcoho l) Sex Assigned at Date Recorded Male 01/07/2021 5:29 PM CDT COVID-19 Exposure Response Date Recorded In the last month, have you been in contact with No / Unsure 11/02/2020 10:35 AM UTILITY BILL COLLECTOR someone who was confirmed or suspected to have Coronavirus / COVID-19? documented as of this encounter Progress Notes Adrian Mills MD - 11/02/2020 10:40 AM CST Wiliam is a 55 year old who is being evaluated via a billable video visit. How would you like to obtain your AVS? MyChart If the video visit is dropped, the invitation should be resent by: Text to cell phone: [phone] Will anyone else be joining your video visit? No Video Start Time: 11:10 AM Assessment and Plan (B37.0) Thrush (primary encounter diagnosis) Comment: will try topical first, can call back in 4-5 days for oralmed if this is not heliping Plan: nystatin (MYCOSTATIN) 609454 UNIT/ML suspension (C25.9) Malignant neoplasm of pancreas, unspecified location of malignancy (H) Comment: using about 2 daily, will provide month supplyu Plan: oxyCODONE (ROXICODONE) 5 MG tablet RTC in 1m prn Adrian Mills MD Cathy Swain is a 55 year old who presents for the following health issues HPI Hospital Follow-up Visit: Hospital/[facility]/IP Rehab Facility: [facility] Date of Admission: 10/23/20 Date of Discharge: 10/30/20 Reason(s) for Admission: chest and abdominal pain Was your hospitalization related to COVID-19? No Problems taking medications regularly: None Medication changes since discharge: ertapenem (INVANZ) 1 GM vial Problems adhering to non-medication therapy: None Patient states that he has white coating on his tongue, and would like a prescription for that. Summary of hospitalization: Discharge summary unavailable Diagnostic Tests/Treatments reviewed. Follow up needed: none Other Healthcare Providers Involved in Patient???s Care: None Update since discharge: improved. Post Discharge Medication Reconciliation: discharge medications reconciled, continue medications without change. Plan of care communicated with patient Has painful white spots on tongue, which he believes is from his antibiotic. Did use Nystatin while in the hospital. Was in hospital [place] for a return of pancreas infection, was discharged 3 days ago. Has repeat CT scan planned, to see if he will need additional debridement surgery. Is eating OK, although noting poor appetite. Still has not had MJ appt as he keeps being admitted. Is due to have video appt tomorrow. Currently using 2 oxycodone daily. Is aware of risks involved, including potential for dependence and withdrawal. Review of Systems Constitutional: Positive for unexpected weight change. HENT: Positive for mouth sores. Negative for trouble swallowing. Gastrointestinal: Positive for abdominal pain. Neurological: Negative. Objective Vitals: No vitals were obtained today due to virtual visit. Physical Exam GENERAL: Healthy, alert and no distress EYES: Eyes grossly normal to inspection. No discharge or erythema, or obvious scleral/conjunctival abnormalities. RESP: No audible wheeze, cough, or visible cyanosis. No visible retractions or increased work of breathing. SKIN: Visible skin clear. No significant rash, abnormal pigmentation or lesions. NEURO: Cranial nerves grossly intact. Mentation and speech appropriate for age. PSYCH: Mentation appears normal, affect normal/bright, judgement and insight intact, normal speech and appearance well-groomed. Video-Visit Details Type of service: Video Visit Video End Time:11:19 AM Originating Location (pt. Location): Home Distant Location (provider location): [facility] Platform used for Video Visit: Yesica ITY BILL COLLECTOR documented in this encounter Plan of Treatment Not on filedocumented as of this encounter Visit Diagnoses Diagnosis Thrush - Primary Candidiasis of mouth Malignant neoplasm of pancreas, unspecif ied location of malignancy (H) documented in this encounter Additional Health Concerns Assessment Noted Time PHQ-9 Depression Total Score: 0 11/30/2018 9:17 AM CDT documented as of this encounter Care Teams Tour Sales Representative Relationship Specialty Start Date End Date Adrian Mills MD PCP - General Family Practice 10/29/12 Adrian Mills MD Assigned PCP 08/30/20 [address] [place] [address] documented as of this encounter
--- OUTSIDE RECORDS SUMMARY | 2022-06-18 15:54 | XMS_ITS | Encounter Summary ---
:1965 Author Organization [facility] Address [address] [place] [address] Care Team Providers Name Role Phone Adrian Mills MD Primary Care Provider [phone] Adrian Mills MD Unavailable Reason for Visit Reason Onset Date Comments Forms 03/12/2021 Home Health Certific ation and Plan of Care Encounter Details Date Type Department Care Team Description 03/12/[address] [facility] Adrian Mills Forms ([facility] Derek Waller MD Certification and Plan [address] of Care) [place] [address] [phone] Social History Tobacco Use Types Packs/Day Years Used Date Never Smoker Smokeless Tobacco: Never Used Alcohol Use Standard Drinks/Week Comments No 0 (1 standard drink = 0.6 oz pure alcoho l) Sex Assigned at Date Recorded Male 01/07/2021 5:29 PM CDT documented as of this encounter Miscellaneous Notes Telephone Encounter - Rachel Montgomery - 03/12/2021 8:58 AM CDT Received Home Health Certification and Plan of Care, placed in PCP's in basket. Please review, sign and fax back to [phone]. documented in this encounter Plan of Treatment Not on filedocumented as of this encounter Visit Diagnoses Not on filedocumented in this encounter Additional Health Concerns Assessment Noted Time PHQ-9 Depression Total Score: 0 11/30/2018 9:17 AM CDT documented as of this encounter Care Teams Button Machine Operator Relationship Specialty Start Date End Date Adrian Mills MD PCP - General Family Practice 10/29/12 Adrian Mills MD Assigned PCP 08/30/20 [address] [place] [address] documented as of this encounter
--- OUTSIDE RECORDS SUMMARY | 2022-06-18 15:54 | XMS_ITS | Encounter Summary ---
:1965 Author Organization [place] Address [address] [facility] [place] [address] Care Team Providers Name Role Phone Adrian Mills MD Primary Care Provider [phone] Adrian Mills MD Unavailable Reason for Visit Reason Onset Date Comments Orders 09/29/2020 Encounter Details Date Type Department Care Team Description 09/29/2020 Telephone [facility] Adrian Mills MD Orders [place] [address] [address] [address] [place] [address] [place] [address] [phone] Social History Tobacco Use Types Packs/Day Years Used Date Never Smoker Smokeless Tobacco: Never Used Alcohol Use Standard Drinks/Week Comments No 0 (1 standard drink = 0.6 oz pure alcoho l) Sex Assigned at Date Recorded Male 01/07/2021 5:29 PM CDT documented as of this encounter Miscellaneous Notes Telephone Encounter - Balbir Mobley - 09/30/2020 11:23 AM CST Patient is scheduled for 10/01/20 with PCP GER TRADING Telephone Encounter - Adrian Mills MD - 09/29/2020 1:23 PM MANAGER TRADING Please have pt make video appt to review this. Adrian Mills MD GER TRADING Telephone Encounter - Balbir Mobley - 09/29/2020 11:29 AM CST Reason for Call: Other call back Detailed comments: patient was to start cannabist treatment, can this be ordered for him Phone Number Patient can be reached at: Home number on file [phone] (home) Best Time: any Can we leave a detailed message on this number? YES Call taken on 09/29/2020 at 11:29 AM by Balbir Mobley GER TRADING documented in this encounter Plan of Treatment Not on filedocumented as of this encounter Visit Diagnoses Not on filedocumented in this encounter Additional Health Concerns Assessment Noted Time PHQ-9 Depression Total Score: 0 11/30/2018 9:17 AM CDT documented as of this encounter Care Teams Ssn/Ssbn Weapons Equipment Operator Relationship Specialty Start Date End Date Adrian Mills MD PCP - General Family Practice 10/29/12 Adrian Mills MD Assigned PCP 08/30/20 [address] [address] [place] [address] documented as of this encounter
[2022-06-18 15:55] LABS: Alanine Aminotransferase* 85 U/L (4-50); Alkaline Phosphatase* 394 U/L (40-150); Aspartate Amino Transferase* 107 U/L (12-35); Blood Urea Nitrogen* 15 mg/dL (7-30); Carbon Dioxide* 28 mmol/L (20-32); Glucose* 85 mg/dL (60-115); Total Protein* 7.5 g/dL (6.0-8.3)
--- OUTSIDE RECORDS SUMMARY | 2022-06-18 15:55 | XMS_ITS | Encounter Summary ---
:1965 Author Organization [place] Address [address] [place] [address] Care Team Providers Name Role Phone Adrian Mills MD Primary Care Provider [phone] Adrian Mills MD Unavailable Reason for Visit Reason Comments Derm Problem Musculoskeletal Problem Encounter Details Date Type Department Care Team Description 06/20/2019 Office Visit [facility] Adrian Mills (actin ic keratosis) (Primary Dx); Clinic Cassidy Waller MD Impingement syndrome of shoulder region, left [address] [facility] [place] [address] [place], [place] [phone] (Wo rk) [address] [phone] Social History Tobacco Use Types Packs/Day Years Used Date Never Smoker Smokeless Tobacco: Never Used Alcohol Use Standard Drinks/Week Comments No 0 (1 standard drink = 0.6 oz pure alcoho l) Sex Assigned at Date Recorded Male 01/07/2021 5:29 PM CDT documented as of this encounter Last Filed Vital Signs Vital Sign Reading Time Taken Comments Blood Pressure 116/80 06/20/2019 11:36 AM CDT Pulse 74 06/20/2019 11:36 AM CDT Temperature 36.4 ??C (97.5 ??F) 06/20/2019 11:36 AM CDT Respiratory Rate 12 06/20/2019 11:36 AM CDT Oxygen Saturation 100% 06/20/2019 11:36 AM CDT Inhaled Oxygen Concentration - - Weight 91.2 kg (201 lb) 06/20/2019 11:36 AM CDT Height - - Body Mass Index 28.23 02/25/2019 4:18 PM CDT documented in this encounter Patient Instructions Patient InstructionsBeAdrian borjas MD - 06/20/2019 11:40 AM CDT 600 mg ibuprofen 3x daily for two weeks Ice 15 3-6x daily for two weeks documented in this encounter Progress Notes Adrian Mills MD - 06/20/2019 11:40 AM CDT Images from the original note were not included. Subjective Adam Campbell is a 54 year old male who presents to clinic today for the following health issues: HPI Derm concern ?? Duration: 6 months ?? Description Location: R forearm Itching: no ?? Intensity: No pain ?? Accompanying signs and symptoms: None ?? History (similar episodes/previous evaluation): yes ?? Precipitating or alleviating factors: New exposures: None Recent travel: no ?? Therapies tried and outcome: none Did have this treated with cryo therapy. About 2-3 weeks ago seemed to be coming back. Musculoskeletal problem/pain ?? Duration: several months ?? Description Location: L shoulder ?? Intensity: moderate ?? Accompanying signs and symptoms: none ?? History Previous similar problem: no Previous evaluation: none ?? Precipitating or alleviating factors: Trauma or overuse: no Aggravating factors include: lifting ?? Therapies tried and outcome: nothing Raising shoulder, or pulling against a load causes sharp pain in other shoulder/upper arm and lots of cracking. Believes he dislocated shoulder several years ago, but it reduced itself and he never hadit looked. No meds or interventions tried. Review of Systems Constitutional: Negative. Eyes: Negative for visual disturbance. Respiratory: Negative for shortness of breath. Cardiovascular: Negative for chest pain, palpitations and peripheral edema. Musculoskeletal: Positive for arthralgias. Skin: Lesion on forearm Neurological: Negative for headaches. Objective BP 116/80 (BP Location: Right arm, Patient Position: Chair, Cuff Size: Adult Regular) Pulse 74 Temp 97.5 ??F (36.4 ??C) (Oral) Resp 12 Wt 91.2 kg (201 lb) SpO2 100% BMI 28.23 kg/m?? Body mass index is 28.23 kg/m??. Physical Exam Vitals signs and nursing note reviewed. Musculoskeletal: Left shoulder: He exhibits decreased range of motion and tenderness. Arms: Comments: Normal rotator cuff, positive Neer Skin: General: Skin is warm and dry. Neurological: General: No focal deficit present. Mental Status: He is oriented to person, place, and time. Assessment and Plan (L57.0) AK (actinic keratosis) (primary encounter diagnosis) Comment: RTC for shave biopsy since initial cryo didn't totally remove it Plan: (M75.42) Impingement syndrome of shoulder region, left Comment: classic exam Plan: timed ibuprofen and ice RTC in 2-4 for shoulder prn and excision. Adrian Mills MD documented in this encounter Plan of Treatment Not on filedocumented as of this encounter Visit Diagnoses Diagnosis AK (actinic keratosis) - Primary Actinic keratosis Impingement syndrome of shoulder region, left documented in this encounter Additional Health Concerns Assessment Noted Time PHQ-9 Depression Total Score: 0 11/30/2018 9:17 AM CDT documented as of this encounter Care Teams Gusset Maker Relationship Specialty Start Date End Date Adrian Mills MD PCP - General Family Practice 10/29/12 Adrian Mills MD Assigned PCP 08/07/16 08/29/20 [address] [place] [address] documented as of this encounter
--- OUTSIDE RECORDS SUMMARY | 2022-06-18 15:55 | XMS_ITS | Encounter Summary ---
:1965 Author Organization [facility] Address [address] [place] [address]. [place] [address] Care Team Providers Name Role Phone Adrian Mills MD Primary Care Provider [phone] Adrian Mills MD Unavailable Encounter Details Date Type Department Care Team Description 11/30/2018 Travel Social History Tobacco Use Types Packs/Day Years Used Date Never Smoker Smokeless Tobacco: Never Used Alcohol Use Standard Drinks/Week Comments No 0 (1 standard drink = 0.6 oz pure alcoho l) Sex Assigned at Date Recorded Male 01/07/2021 5:29 PM CDT documented as of this encounter Plan of Treatment Not on filedocumented as of this encounter Visit Diagnoses Not on filedocumented in this encounter Additional Health Concerns Assessment Noted Time PHQ-9 Depression Total Score: 0 11/30/2018 9:17 AM CDT documented as of this encounter Care Teams Rigging Man Relationship Specialty Start Date End Date Adrian Mills MD PCP - General Family Practice 10/29/12 Adrian Mills MD Assigned PCP 08/07/16 08/29/20 [address] [facility] [place] [address] documented as of this encounter
--- OUTSIDE RECORDS SUMMARY | 2022-06-18 15:55 | XMS_ITS | Encounter Summary ---
:1965 Author Organization [facility] Address [address] [place] [address]. [place] [address] Care Team Providers Name Role Phone Adrian Mills MD Primary Care Provider [phone] Adrian Mills MD Unavailable Encounter Details Date Type Department Care Team Description 06/20/2019 Travel Social History Tobacco Use Types Packs/Day [...] documented as of this encounter Care Teams Coffee Machine Technician Relationship Specialty Start Date End Date Adrian Mills MD PCP - General Family Practice 10/29/12 Adrian Mills MD Assigned PCP 08/07/16 08/29/20 [address] [facility] [place] [address] documented as of this encounter
--- OUTSIDE RECORDS SUMMARY | 2022-06-18 15:55 | XMS_ITS | Encounter Summary ---
:1965 Author Organization [place] Address [facility] [place] [address] Care Team Providers Name Role Phone Adrian Mills MD Primary Care Provider [phone] Adrian Mills MD Unavailable Adrian Mills MD Unavailable Reason for Referral Consultation - Closed Specialty Diagnoses / Procedures Referred By Contact Refer red To Contact Podiatry Diagnoses Right foot pain Adrian Mills M [facility] [address] [facility] [place] [address] [facility] [address] [place] [address] [place] [address] Phone: Fax: Referral ID Status Reason Start Date Expiration Date Visits Requ ested Visits Authorized [id number] Closed 07/18/2017 07/18/2018 1 1 ING TABLE WORKER Reason for Visit Reason Comments URI x2-3 weeks Musculoskeletal Problem right foot; feels like his t oes are swollen Encounter Details Date Type Department Care Team Description 07/18/2017 Office Visit [facility] Adrian Mills Acute rec urrent maxillary sinusitis (Primary Dx); Clinic Cassidy Waller MD Right foot pain [address] [address] [facility], [address] [place] [address] [place], [place] [phone] (Wo rk) [address] [phone] Social History Tobacco Use Types Packs/Day Years Used Date Never Smoker Smokeless Tobacco: Never Used Alcohol Use Standard Drinks/Week Comments No 0 (1 standard drink = 0.6 oz pure alcoho l) Sex Assigned at Date Recorded Male 01/07/2021 5:29 PM CDT documented as of this encounter Last Filed Vital Signs Vital Sign Reading Time Taken Comments Blood Pressure 92/66 07/18/2017 1:43 PM PICKING TABLE WORKER Pulse 85 07/18/2017 1:43 PM PICKING TABLE WORKER Temperature 36.7 ??C (98 ??F) 07/18/2017 1:43 PM PICKING TABLE WORKER Respiratory Rate 20 07/18/2017 1:43 PM PICKING TABLE WORKER Oxygen Saturation 99% 07/18/2017 1:43 PM PICKING TABLE WORKER Inhaled Oxygen Concentration - - Weight 87.2 kg (192 lb 4.8 oz) 07/18/2017 1:43 PM PICKING TABLE WORKER Height 177.8 cm (5' 10) 07/18/2017 1:43 PM PICKING TABLE WORKER Body Mass Index 27.59 07/18/2017 1:43 PM PICKING TABLE WORKER documented in this encounter Progress Notes Adrian Mills MD - 07/18/2017 1:40 PM CST HPI SUBJECTIVE: Adam Campbell is a 52 year old male who presents to clinic today for the following health issues: Acute Illness Acute illness concerns: URI Onset: 7 weeks ?? Fever: no ?? Chills/Sweats: YES ?? Headache (location?): YES- behind his eyes ?? Sinus Pressure:YES- worse when he wakes up ?? Conjunctivitis: no ?? Ear Pain: YES: both ?? Rhinorrhea: YES ?? Congestion: YES ?? Sore Throat: YES ?? Cough: YES-productive of yellow sputum ?? Wheeze: YES ?? Decreased Appetite: YES ?? Nausea: no ?? Vomiting: YES- from coughing ?? Diarrhea: YES- loose stool ?? Dysuria/Freq.: no ?? Fatigue/Achiness: YES- legs hurt ?? 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 Was seen at , had seven days of abx, started to feel better, but then rebounded after he stopped. Musculoskeletal problem/pain ?? Duration: x1 year ?? Description Location: right foot; toes ?? Intensity: mild ?? Accompanying signs and symptoms: feels like his toes are swollen ?? History Previous similar problem: no Previous evaluation: none ?? Precipitating or alleviating factors: Trauma or overuse: no Aggravating factors include: walking barefoot ?? Therapies tried and outcome: switching shoes; gel inserts make it worse Felling of mass just behind toes. Worse when barefoot. Wondering about a cyst. typpically pain is steady through the day. No interventions tried. Review of Systems Constitutional: Positive for malaise/fatigue. Negative for fever. HENT: Positive for ear pain, sinus pain and sore throat. Respiratory: Positive for cough and sputum production. Musculoskeletal: Positive for joint pain. Neurological: Positive for headaches. Negative for tingling and sensory change. Physical Exam Constitutional: He is oriented to person, place, and time and well-developed, well-nourished, and inno distress. HENT: Right Ear: Tympanic membrane, external ear and ear canal normal. Left Ear: Tympanic membrane, external ear and ear canal normal. Mouth/Throat: Oropharynx is clear and moist and mucous membranes are normal. No oropharyngeal exudate, posterior oropharyngeal edema or posterior oropharyngeal erythema. Cardiovascular: Normal rate and normal heart sounds. Pulmonary/Chest: Effort normal and breath sounds normal. Musculoskeletal: Right foot: There is normal range of motion, no tenderness and no bony tenderness. Lymphadenopathy: He has no cervical adenopathy. Neurological: He is alert and oriented to person, place, and time. Skin: Skin is warm and dry. No rash noted. Vitals reviewed. (J01.01) Acute recurrent maxillary sinusitis (primary encounter diagnosis) Comment: may also be chained viral infections Plan: doxycycline (VIBRAMYCIN) 100 MG capsule (M79.671) Right foot pain Comment: suspect neuroma Plan: ORTHO HEART COORDINATOR REFERRAL RTC in Adrian Mills MD ING TABLE WORKER documented in this encounter Plan of Treatment Pending Results Name Type Priority Associated Diagnoses Date/Ti nh ORTHO HEART COORDINATOR REFERRAL Referral Routine Right foot pain 07/20/2017 documented as of this encounter Visit Diagnoses Diagnosis Acute recurrent maxillary sinusitis - Pr imary Acute maxillary sinusitis Right foot pain Pain in limb documented in this encounter Care Teams Mail Carriers Supervisor Relationship Specialty Start Date End Date Adrian Mills MD PCP - General Family Practice 10/29/12 Adrian Mills MD PCP - Assigned PCP 08/07/16 11/13/18 [id number] [address] [id number] Adrian Mills MD Assigned PCP 08/07/16 08/29/20 [id number] [address] [address] documented as of this encounter
--- OUTSIDE RECORDS SUMMARY | 2022-06-18 15:55 | XMS_ITS | Encounter Summary ---
:1965 Author Organization [place] Address [address] [facility] [place] [address] Care Team Providers Name Role Phone Adrian Mills MD Primary Care Provider [phone] Adrian iMlls MD Unavailable Reason for Visit Reason Onset Date Comments Forms 08/25/2020 FMLA Encounter Details Date Type Department Care Team Description 08/25/[address] [facility] Adrian Mills, Eduarda (FMLA) Derek [place] [address] [address] [place] [phone] [place] [address] [phone] (Wo rk) Social History Tobacco Use Types Packs/Day Years Used Date Never Smoker Smokeless Tobacco: Never Used Alcohol Use Standard Drinks/Week Comments No 0 (1 standard drink = 0.6 oz pure alcoho l) Sex Assigned at Date Recorded Male 01/07/2021 5:29 PM CDT COVID-19 Exposure Response Date Recorded In the last month, have you been in contact with No / Unsure 08/20/2020 2:02 PM GUIDANCE ADVISER someone who was confirmed or suspected to have Coronavirus / COVID-19? documented as of this encounter Miscellaneous Notes Telephone Encounter - Rachel Montgomery - 08/28/2020 9:05 AM CST Form faxed back to [phone]. Patient advised. -Rachel Montgomery Mix Crusher Operator ANCE ADVISER Telephone Encounter - Adrian Mills MD - 08/27/2020 2:39 PM GUIDANCE ADVISER Form completed Adrian Mills MD ANCE ADVISER Telephone Encounter - Rachel Montgomery - 08/25/2020 3:41 PM CST Received FMLA forms for patient, placed in PCP's in basket. Please review, sign and fax back to [phone] or advise if patient needs appt to complete. ANCE ADVISER documented in this encounter Plan of Treatment Not on filedocumented as of this encounter Visit Diagnoses Not on filedocumented in this encounter Additional Health Concerns Assessment Noted Time PHQ-9 Depression Total Score: 0 11/30/2018 9:17 AM CDT documented as of this encounter Care Teams Partner Marketing Manager Relationship Specialty Start Date End Date Adrian Mills MD PCP - General Family Practice 10/29/12 Adrian Mills MD Assigned PCP 08/07/16 08/29/20 [id number] [address] [id number] documented as of this encounter
--- OUTSIDE RECORDS SUMMARY | 2022-06-18 15:55 | XMS_ITS | Encounter Summary ---
:1965 Author Organization [place] Address [address] [facility] [place] [address] Care Team Providers Name Role Phone Awilda Garrison MD Primary Care Provider [phone] Awilda Garrison MD Unavailable Reason for Visit Reason Comments Derm Problem Encounter Details Date Type Department Care Team Description 07/09/2019 Office Visit [facility] Awilda Garrison (actin ic Clinic Cassidy Waller MD keratosis) (Primary [place] [address], [address] [place] [address] [place], [place] [phone] (Wo rk) [address] [phone] Social History Tobacco Use Types Packs/Day Years Used Date Never Smoker Smokeless Tobacco: Never Used Alcohol Use Standard Drinks/Week Comments No 0 (1 standard drink = 0.6 oz pure alcoho l) Sex Assigned at Date Recorded Male 01/07/2021 5:29 PM CDT documented as of this encounter Last Filed Vital Signs Vital Sign Reading Time Taken Comments Blood Pressure 122/74 07/09/2019 8:59 AM CDT Pulse 70 07/09/2019 8:59 AM CDT Temperature 36.5 ??C (97.7 ??F) 07/09/2019 8:59 AM CDT Respiratory Rate 12 07/09/2019 8:59 AM CDT Oxygen Saturation 98% 07/09/2019 8:59 AM CDT Inhaled Oxygen Concentration - - Weight 91.6 kg (202 lb) 07/09/2019 8:59 AM CDT Height - - Body Mass Index 28.37 02/25/2019 4:18 PM CDT documented in this encounter Progress Notes Awilda Garrison MD - 07/09/2019 9:00 AM CDT Subjective Adam Campbell is a 54 year old male who presents to clinic today for the following health issues: HPI HPI General Follow Up Concern: spot on R arm Problem started: follow up from 06/20 visit Progression of symptoms: better Description: pt would like removed Seen several weeks ago, noted to have recurrent AK type lesion on R forwarm. Did have cryo on this previously but it returned. Not otherwise bothersome. Review of Systems Objective BP 122/74 (BP Location: Right arm, Patient Position: Chair, Cuff Size: Adult Regular) Pulse 70 Temp 97.7 ??F (36.5 ??C) (Oral) Resp 12 Wt 91.6 kg (202 lb) SpO2 98% BMI 28.37 kg/m?? Body mass index is 28.37 kg/m??. Physical Exam Assessment and Plan (L57.0) AK (actinic keratosis) (primary encounter diagnosis) Comment: Written consent obtained. Area prepped with betadine. Anesthesia with 1% lidocaine with epinephrine. Shave biopsy with removal of visible lesion. Hemostasis with aluminum chloride. Bandage andantibiotic ointment applied. Negligible blood loss. Plan: SHAV SKIN LESION TRUNK/ARM/LEG <=0.5 CM, Surgical pathology exam RTC prn Awilda Garrison MD documented in this encounter Plan of Treatment Not on filedocumented as of this encounter Procedures Procedure Name Priority Date/Time Associated Diagnosis Comme nts HC SHAV SKIN LESION Routine 07/09/2019 9:34 AM AK (actinic TRUNK/ARM/LEG <=0.5 CDT keratosis) CM SURGICAL PATHOLOGY Routine 07/09/2019 9:20 AM AK (actinic Res ults for this EXAM CDT keratosis) procedure are i n the results section. documented in this encounter Results Surgical pathology exam (07/09/2019 9:20 AM CDT) Component Value Ref Test Analysis Performed At [facility] Range Method Time Signature Copath Report Patient Name: ADAM CAMPBELL MR#: [id number] Specimen #: [id number] Collected: 07/09/2019 Received: 07/10/2019 Reported: 07/11/2019 12:18 Ordering Phy(s): AWILDA GARRISON For improved result formatting, select 'View Enhanced Report Format' under Linked Documents section. SPECIMEN(S): Skin biopsy, forearm FINAL DIAGNOSIS: Skin, right forearm, shave biopsy: - Verrucous keratosis with mild atypia (associated with liliam r elastosis), consistent with actinic keratosis. - No evidence of malignancy. Electronically signed out by: Freddy Helton M.D. CLINICAL HISTORY: Recurrent AK. GROSS: The specimen is received in formalin labeled with the patien t's name, identifying information and designated right forearm. ??It consists of a 0.8 x 0.7 cm knight hair-be aring skin shave biopsy. ??The margin is inked blue. Trisected and submitted entirely in one block. (Dictated by : RICKY Crane 07/10/2019 09:18 AM) MICROSCOPIC: Microscopic examination was performed. The technical component of this testing was completed at the [facility], with the professional compo nent performed at the [facility], [address] [place] [address] ??[phone] ([phone]) CPT Codes: A: 43999-VX0 COLLECTION SITE: Client: [facility] Location: FM (R) Specimen Anatomical Collection Method Collection Time Receive d Time (Source) Location / / Volume Laterality 07/09/2019 9:20 AM 9 7:45 CDT AM CDT Awilda Garrison MD [facility] Performing Organization Address City/State/ZIP Code Phon e Number VÍCTOR documented in this encounter Visit Diagnoses Diagnosis AK (actinic keratosis) - Primary Actinic keratosis documented in this encounter Additional Health Concerns Assessment Noted Time PHQ-9 Depression Total Score: 0 11/30/2018 9:17 AM CDT documented as of this encounter Care Teams Title 1 Tutor Relationship Specialty Start Date End Date Awilda Garrison MD PCP - General Family Practice 10/29/12 Awilda Garrison MD Assigned PCP 08/07/16 08/29/20 [id number] [address] [address] documented as of this encounter
--- OUTSIDE RECORDS SUMMARY | 2022-06-18 15:55 | XMS_ITS | Encounter Summary ---
:1965 Author Organization [place] Address [address] [place] [address]. [place] [address] Care Team Providers Name Role Phone Adrian Mills MD Primary Care Provider [phone] Adrian Mills MD Unavailable Encounter Details Date Type Department Care Team Description 07/09/2019 Travel Social History Tobacco Use Types Packs/Day [...] documented as of this encounter Care Teams Watch Band Assembler Relationship Specialty Start Date End Date Adrian Mills MD PCP - General Family Practice 10/29/12 Adrian Mills MD Assigned PCP 08/07/16 08/29/20 [address] [facility] [address] documented as of this encounter
--- OUTSIDE RECORDS SUMMARY | 2022-06-18 15:55 | XMS_ITS | Encounter Summary ---
:1965 Author Organization [place] Address [address] [facility] [place] [address] Care Team Providers Name Role Phone Adrian Mills MD Primary Care Provider [phone] Adrian Mills MD Unavailable Reason for Referral Diagnostic Procedure Outpatient - Closed Specialty Diagnoses / Procedures Referred By Contact Refer red To Contact Diagnoses Screen for colon cancer Adrian Mills M [facility] [address] [place] [address] [place] [address] Phone: Fax: Referral ID Status Reason Start Date Expiration Date Visits Requ ested Visits Authorized [id number] Closed 11/30/2018 11/30/2019 1 1 Reason for Visit Reason Comments Physical fasting Encounter Details Date Type Department Care Team Description 11/30/2018 Office Visit [facility] Adrian Mills Routine g eneral medical examination at a health care facility (Primary Dx); Clinic Cassidy Waller MD Screen for colon cancer; [place] [address] [address] Need for hepatitis C screening test [facility], [address] [place] [address] [place], [place] [phone] (Wo rk) [address] [phone] Social History Tobacco Use Types Packs/Day Years Used Date Never Smoker Smokeless Tobacco: Never Used Alcohol Use Standard Drinks/Week Comments No 0 (1 standard drink = 0.6 oz pure alcoho l) Sex Assigned at Date Recorded Male 01/07/2021 5:29 PM CDT documented as of this encounter Last Filed Vital Signs Vital Sign Reading Time Taken Comments Blood Pressure 108/82 11/30/2018 9:08 AM CDT Pulse 64 11/30/2018 9:08 AM CDT Temperature 36.6 ??C (97.9 ??F) 11/30/2018 9:08 AM CDT Respiratory Rate 16 11/30/2018 9:08 AM CDT Oxygen Saturation - - Inhaled Oxygen Concentration - - Weight 89.4 kg (197 lb 1.6 oz) 11/30/2018 9:08 AM CDT Height 179.7 cm (5' 10.75) 11/30/2018 9:08 AM CDT Body Mass Index 27.68 11/30/2018 9:08 AM CDT documented in this encounter Patient Instructions Patient InstructionsBárbara Whitten, USABILITY SPECIALIST - 11/30/2018 9:20 AM CDT Preventive Health Recommendations Male Ages 50 - 64 Yearly exam: ?? See your health care provider every year in order to o Review health changes. o Discuss preventive care. o Review your medicines if your doctor has prescribed any. ??? Have a cholesterol test every 5 years, or more frequently if you are at risk for high cholesterol/heart disease. ??? Have a diabetes test (fasting glucose) every three years. If you are at risk for diabetes, you should have this test more often. ??? Have a colonoscopy at age 50, or have a yearly FIT test (stool test). These exams will check forcolon cancer. ??? Talk with your health care provider about whether or not a prostate cancer screening test (PSA) is right for you. ??? You should be tested each year for STDs (sexually transmitted diseases), if you???re at risk. Shots: Get a flu shot each year. Get a tetanus shot every 10 years. Nutrition: ??? Eat at least 5 servings of fruits and vegetables daily. ??? Eat whole-grain bread, whole-wheat pasta and brown rice instead of white grains and rice. ??? Get adequate Calcium and Vitamin D. Lifestyle ??? Exercise for at least 150 minutes a week (30 minutes a day, 5 days a week). This will help you control your weight and prevent disease. ??? Limit alcohol to one drink per day. ??? No smoking. ??? Wear sunscreen to prevent skin cancer. ??? See your dentist every six months for an exam and cleaning. ??? See your eye doctor every 1 to 2 years. documented in this encounter Progress Notes Adrian Mills MD - 11/30/2018 9:20 AM CDT SUBJECTIVE: CC: Adam Campbell is an 53 year old male who presents for preventive health visit. Healthy Habits: Answers for HPI/ROS submitted by the patient on 11/30/2018 Annual Exam: Frequency of exercise:: None Getting at least 3 servings of Calcium per day:: NO Diet:: Regular (no restrictions) Taking medications regularly:: Yes Medication side effects:: None Bi-annual eye exam:: Yes Dental care twice a year:: NO Sleep apnea or symptoms of sleep apnea:: None Positive for the following: heartburn Negative for the following: abdominal pain, Blood in stool, Blood in urine, chest pain, chills, congestion, constipation, cough, diarrhea, dizziness, ear pain, eye pain, nervous/anxious, fever, frequency, genital sores, headaches, hearing loss, arthralgias, joint swelling, peripheral edema, mood changes, myalgias, nausea, dysuria, palpitations, Skin sensation changes, sore throat, urgency, rash, shortness of breath, visual disturbance, weakness impotence: No penile discharge: No Additional concerns today:: No Painful spot on the bottom of his right foot. Evaluated by podiatry in 07/28 and told it was capsulitis and arthritis. Today's PHQ-2 Score: PHQ-2 (??1999 Pfizer) 11/30/2018 11/30/2018 Q1: Little interest or pleasure in doing things 0 0 Q2: Feeling down, depressed or hopeless 0 0 PHQ-2 Score 0 0 Q1: Little interest or pleasure in doing things Not at all - Q2: Feeling down, depressed or hopeless Not at all - PHQ-2 Score 0 - Abuse: Current or Past(Physical, Sexual or Emotional)- No Do you feel safe in your environment? Yes Social History Tobacco Use ??? Smoking status: Never Smoker ??? Smokeless tobacco: Never Used Substance Use Topics ??? Alcohol use: No Alcohol/week: 0.0 oz If you drink alcohol do you typically have >3 drinks per day or >7 drinks per week? No Last PSA: No results found for: PSA Reviewed orders with patient. Reviewed health maintenance and updated orders accordingly - Yes Reviewed and updated as needed this visit by clinical staff Tobacco Allergies Meds Soc Hx Reviewed and updated as needed this visit by Provider ROS: CONSTITUTIONAL: NEGATIVE for fever, chills, change in weight INTEGUMENTARY/SKIN: NEGATIVE for worrisome rashes, moles or lesions EYES: NEGATIVE for vision changes or irritation ENT: NEGATIVE for ear, mouth and throat problems RESP: NEGATIVE for significant cough or SOB CV: NEGATIVE for chest pain, palpitations or peripheral edema GI: NEGATIVE for nausea, abdominal pain, heartburn, or change in bowel habits male: negative for dysuria, hematuria, decreased urinary stream, erectile dysfunction, urethral discharge MUSCULOSKELETAL: NEGATIVE for significant arthralgias or myalgia. Except as noted in HPI NEURO: NEGATIVE for weakness, dizziness or paresthesias PSYCHIATRIC: NEGATIVE for changes in mood or affect OBJECTIVE: BP 108/82 (BP Location: Right arm, Patient Position: Chair, Cuff Size: Adult Regular) Pulse 64 Temp 97.9 ??F (36.6 ??C) (Oral) Resp 16 Ht 1.797 m (5' 10.75) Wt 89.4 kg (197 lb 1.6 oz) BMI 27.68 kg/m?? EXAM: GENERAL: healthy, alert and no distress EYES: Eyes grossly normal to inspection, PERRL and conjunctivae and sclerae normal HENT: ear canals and TM's normal, nose and mouth without ulcers or lesions NECK: no adenopathy, no asymmetry, masses, or scars and thyroid normal to palpation RESP: lungs clear to auscultation - no rales, rhonchi or wheezes CV: regular rate and rhythm, normal S1 S2, no S3 or S4, no murmur, click or rub, no peripheral edemaand peripheral pulses strong ABDOMEN: soft, nontender, no hepatosplenomegaly, no masses and bowel sounds normal MS: no gross musculoskeletal defects noted, no edema.. NOrmal R foot exam. SKIN: no suspicious lesions or rashes NEURO: Normal strength and tone, mentation intact and speech normal PSYCH: mentation appears normal, affect normal/bright Diagnostic Test Results: none ASSESSMENT/PLAN: ICD-10-CM 1. Routine general medical examination at a health care facility Z00.00 Lipid panel reflex to directLDL Fasting Basic metabolic panel 2. Screen for colon cancer Z12.11 GASTROENTEROLOGY ADULT REF PROCEDURE ONLY Other 3. Need for hepatitis C screening test Z11.59 Hepatitis C Screen Reflex to HCV RNA Quant and Genotype COUNSELING: Reviewed preventive health counseling, as reflected in patient instructions Regular exercise Vision screening BP Readings from Last 1 Encounters: 11/30/18 108/82 Estimated body mass index is 27.68 kg/m?? as calculated from the following: Height as of this encounter: 1.797 m (5' 10.75). Weight as of this encounter: 89.4 kg (197 lb 1.6 oz). reports that has never smoked. he has never used smokeless tobacco. Counseling Resources: ATP IV Guidelines Pooled Cohorts Equation Calculator FRAX Risk Assessment ICSI Preventive Guidelines Dietary Guidelines for Americans, 2009 [employer] MyPlate ASA Prophylaxis Lung CA Screening Adrian Mills MD [facility] documented in this encounter Plan of Treatment Scheduled Referrals Name Type Priority Associated Diagnoses Order S chedule GASTROENTEROLOGY ADULT REF Referral Routine Screen for col on Ordered: 11/30/2018 PROCEDURE ONLY Other cancer documented as of this encounter Procedures Procedure Name Priority Date/Time Associated Diagnosis Comme nts HEPATITIS C SCREEN Routine 11/30/2018 9:38 AM Need for hepatit is C Results for this REFLEX TO HCV RNA CDT screening test procedur e are in QUANT AND GENOTYPE the resul ts section. LIPID REFLEX TO Routine 11/30/2018 9:38 AM Routine general Res ults for this DIRECT LDL PANEL CDT medical examination proc edure are in at a health care the results facility section. BASIC METABOLIC Routine 11/30/2018 9:38 AM Routine general Res ults for this PANEL CDT medical examination procedur e are in at a health care the results facility section. documented in this encounter Results Basic metabolic panel (11/30/2018 9:38 AM CDT) P athologist Signature Sodium 140 133 - 144 11/30/2018 [facility] mmol/L 7:25 PM T [facility] Potassium 3.8 3.4 - 5.3 11/30/2018 [facility] mmol/L 7:25 PM T [facility] Chloride 107 94 - 109 11/30/2018 [facility] mmol/L 7:25 PM [facility] Carbon Dioxide 26 20 - 32 11/30/2018 [place] mmol/L 7:41 PM [facility] Anion Gap 7 3 - 14 11/30/2018 [place] mmol/L 7:41 PM [facility] Glucose 91 70 - 99 11/30/2018 [place] mg/dL 7:41 PM [facility] Comment: Fasting specimen Urea Nitrogen 17 7 - 30 mg/dL 11/30/2018 7:41 PM [facility] Creatinine 0.89 0.66 - 1.25 mg/dL 11/30/2018 7:41 PM [facility] GFR Estimate >90 >60 11/30/2018 7:41 PM T [facility] mL/min/{1.73_m2} [facility] Comment: Non GFR Calc Starting 08/28/2018, serum creatinine ba sed estimated GFR (eGFR) will be calculated using the Chronic Kidney Dise [facility] Epidemiology Collaboration (CKD-EPI) equation. GFR Estimate If >90 >60 mL/min/{1.73_m2} 11/30/2018 7: 41 PM [facility] Comment: GFR Calc Starting 08/28/2018, serum creatinine ba sed estimated GFR (eGFR) will be calculated using the Chronic Kidney Dise [facility] Epidemiology Collaboration (CKD-EPI) equation. Calcium 9.1 8.5 - 10.1 mg/dL 11/30/2018 7:41 PM [facility] Specimen Anatomical Collection Method Collection Time Receive d Time (Source) Location / / Volume Laterality Blood specimen 11/30/2018 9:38 AM 019 9:43 (specimen) CDT AM CDT Adrian Mills MD LAB - BLOOD ORDERABLES Performing Organization Address City/State/ZIP Code Phon e Number M [facility] [address] [address] [phone] [facility] [address] [place], [place] [address] [facility] [address] [address], [place] [phone] (ABNORMAL) Lipid panel reflex to direct LDL Fasting (11/30/2018 9:38 AM CDT) athologist Signature Cholesterol 188 <200 mg/dL 11/30/2018 [place] 7:41 PM T [facility] Triglycerides 119 <150 mg/dL 11/30/2018 [place] CL[facility]I CS 7:43 PM [facility] Comment: Fasting specimen HDL Cholesterol 41 >39 mg/dL 11/30/2018 7:43 PM [facility] IEW CLINICS [facility] LDL Cholesterol 123 (H) <100 mg/dL 11/30/2018 7:43 PM [facility] Calculated CDT [facility] Comment: Above desirable: ??100-129 mg/dl Borderline High: ??130-159 mg/dL High: ? 160-189 mg/dL Very high: ? >189 mg/dl Non HDL Cholesterol 147 (H) <130 mg/dL 11/30/2018 7:[address] [facility] Comment: Above Desirable: ??130-159 mg/dl Borderline high: ??160-189 mg/dl High: ? 190-219 mg/dl Very high: ? >219 mg/dl Specimen Anatomical Collection Method Collection Time Receive d Time (Source) Location / / Volume Laterality Blood specimen 11/30/2018 9:38 AM 019 9:43 (specimen) CDT AM CDT Adrian Mills MD LAB - BLOOD ORDERABLES Performing Organization Address City/State/ZIP Code Phon e Number [facility] [address] [place], [place] [address] [facility] [address] [address], [place] [phone] Hepatitis C Screen Reflex to HCV RNA Quant and Genotype (11/30/2018 9:38 AM CDT) [facility] gist Method Time Signature Hepatitis C Nonreactive NR^Nonrea 12/01/2018 [facility] ctive 2:49 PM CDT [facility] Comment: Assay performance characteristics have n ot been established for newborns, infants, and children Specimen Anatomical Collection Method Collection Time Receive d Time (Source) Location / / Volume Laterality Blood specimen 11/30/2018 9:38 AM 019 9:43 (specimen) CDT AM CDT Adrian Mills MD LAB - BLOOD ORDERABLES Performing Organization Address City/State/ZIP Code Phon e Number [facility] [address] [place] [address] [facility] documented in this encounter Visit Diagnoses Diagnosis Routine general medical examination at a health care facility - Primary Screen for colon cancer Special screening for malignant neoplasm s, colon Need for hepatitis C screening test Special screening examination for other specified viral diseases documented in this encounter Additional Health Concerns Assessment Noted Time PHQ-9 Depression Total Score: 0 11/30/2018 9:17 AM CDT documented as of this encounter Care Teams French Folding Machine Operator Relationship Specialty Start Date End Date Adrian Mills MD PCP - General Family Practice 10/29/12 Adrian Mills MD Assigned PCP 08/07/16 08/29/20 [address] [place] [address] documented as of this encounter
--- OUTSIDE RECORDS SUMMARY | 2022-06-18 15:55 | XMS_ITS | Encounter Summary ---
:1965 Author Organization [place] Address [address] [facility] [address] Care Team Providers Name Role Phone Adrian Mills MD Primary Care Provider [phone] Adrian Mills MD Unavailable Reason for Visit Diagnostic Imaging XR (Routine) - Closed Specialty Diagnoses / Procedures Referred By Contact Refer red To Contact Diagnoses Shortness of breath Adrian Mills MD Procedures XR Chest 2 Views [address] [address] Referral ID Status Reason Start Date Expiration Date Visits Requ ested Visits Authorized [id number] Closed 08/20/2020 08/20/2021 1 1 Encounter Details Date Type Department Care Team Description 08/20/2020 Ancillary Procedure [facility] Adrian Mills [facility] [place] [address] [address] [place] [address] [phone] Social History Tobacco Use Types Packs/Day Years Used Date Never Smoker Smokeless Tobacco: Never Used Alcohol Use Standard Drinks/Week Comments No 0 (1 standard drink = 0.6 oz pure alcoho l) Sex Assigned at Date Recorded Male 01/07/2021 5:29 PM CDT COVID-19 Exposure Response Date Recorded In the last month, have you been in contact with No / Unsure 08/20/2020 2:02 PM CUSTOMER MANAGEMENT SPECIALIST someone who was confirmed or suspected to have Coronavirus / COVID-19? documented as of this encounter Plan of Treatment Not on filedocumented as of this encounter Procedures Procedure Name Priority Date/Time Associated Diagnosis Comme nts XR CHEST 2 VIEWS Routine 08/20/2020 3:03 PM Shortness of breat h Results for this CUSTOMER MANAGEMENT SPECIALIST procedure are i n the results section. documented in this encounter Results XR Chest 2 Views (08/20/2020 3:03 PM CUSTOMER MANAGEMENT SPECIALIST) Anatomical Region Laterality Modality Chest Computed Radiography Specimen (Source) Anatomical Location Collection Method / Collectio n Time Received Time / Laterality Volume Impressions 08/20/2020 4:22 PM CUSTOMER MANAGEMENT SPECIALIST IMPRESSION: Two views of the chest were obtained. Cardiomediastinal silhouette is within normal limits. Smal l left pleural effusion with associated basilar atelectasis/consolida tion. No significant pleural effusion. No significant pneumothorax. L eft upper extremity PICC tip projects over low SVC. ABILIO CARSON MD Narrative 08/20/2020 4:22 PM CUSTOMER MANAGEMENT SPECIALIST CHEST TWO VIEWS ?? 08/20/2020 3:03 PM HISTORY: Shortness of breath COMPARISON: Chest x-ray on 01/23/2012 Procedure Note Abilio Carson MD - 08/20/2020Forma tting of this note might be different from the original. CHEST TWO VIEWS 08/20/2020 3:03 PM HISTORY: Shortness of breath COMPARISON: Chest x-ray on 01/23/2012 IMPRESSION: Two views of the chest were obtained. Cardiomediastinal silhouette is within normal limits. Smal l left pleural effusion with associated basilar atelectasis/consolida tion. No significant pleural effusion. No significant pneumothorax. L eft upper extremity PICC tip projects over low SVC. ABILIO CARSON MD Adrian Mills MD [facility]G DIAGNOSTIC IMAGING ORDER PHILIP documented in this encounter Visit Diagnoses Not on filedocumented in this encounter Additional Health Concerns Assessment Noted Time PHQ-9 Depression Total Score: 0 11/30/2018 9:17 AM CDT documented as of this encounter Care Teams Brickmason Apprentice Relationship Specialty Start Date End Date Adrian Mills MD PCP - General Family Practice 10/29/12 Adrian Mills MD Assigned PCP 08/07/16 08/29/20 [address] [address] documented as of this encounter
--- OUTSIDE RECORDS SUMMARY | 2022-06-18 15:55 | XMS_ITS | Encounter Summary ---
:1965 Author Organization [place] Address [facility] [address] Care Team Providers Name Role Phone Adrian Mills MD Primary Care Provider [phone] Adrian Mills MD Unavailable Reason for Referral Diagnostic Procedure Outpatient - Closed Specialty Diagnoses / Procedures Referred By Contact Refer red To Contact Diagnoses Special screening for malignant neoplasms, colon Adrian Mills M [facility] [address] [facility] [address] [place] [address] [place] [address] Phone: Fax: Referral ID Status Reason Start Date Expiration Date Visits Requ ested Visits Authorized [id number] Closed 11/28/2018 11/28/2019 1 1 Reason for Visit Reason Onset Date Comments Orders 11/28/2018 Colonoscopy Encounter Details Date Type Department Care Team Description 11/28/2018 Telephone [facility] Adrian Hutton Orders (C olonoscopy) [place] [address] [facility], [address] [facility] [address] [place] [address] [place], [place] [phone] (Wo rk) [address] [phone] Social History Tobacco Use Types Packs/Day Years Used Date Never Smoker Smokeless Tobacco: Never Used Alcohol Use Standard Drinks/Week Comments No 0 (1 standard drink = 0.6 oz pure alcoho l) Sex Assigned at Date Recorded Male 01/07/2021 5:29 PM CDT documented as of this encounter Miscellaneous Notes Telephone Encounter - Bárbara Whitten CMA - 11/28/2018 3:52 PM CDT Patient contacted and information relayed. Bárbara Whitten CMA ([facility]) Telephone Encounter - Adrian Mills MD - 11/28/2018 3:44 PM CDT Order placed. He will be called. Adrian Mills MD Telephone Encounter - Kimberly Vargas RN - 11/28/2018 2:[address] Mills please see below and advise. I called the Pt, this would be his first colonoscopy, routine screening. He is not having any abnormal symptoms. Kimberly Vargas RN -- [facility] Telephone Encounter - Mey Monroe - 11/28/2018 2:35 PM CDT Patient is scheduled to see Dr. Mills on Monday but would like to know if we will place a order forhis colonoscopy before then. Patient is off next week and he would like to try to do the colonoscopynext week. Patient last appointment with Dr. Mills was 07/18/17. Call patient with referral information if approved before Monday appointment. Mey Monroe Scientific Artist documented in this encounter Plan of Treatment Scheduled Referrals Name Type Priority Associated Diagnoses Order S chedule GASTROENTEROLOGY ADULT REF Referral Routine Special screen ing for Ordered: 11/28/2018 PROCEDURE ONLY [place] malignant neoplasms , Lay Out Carpenter ; colon [place] [facility] documented as of this encounter Visit Diagnoses Diagnosis Special screening for malignant neoplasm s, colon - Primary documented in this encounter Care Teams Boring Mill Set Up Operator Relationship Specialty Start Date End Date Adrian Mills MD PCP - General Family Practice 10/29/12 Adrian Mills MD Assigned PCP 08/07/16 08/29/20 [address] [place] [address] documented as of this encounter
--- OUTSIDE RECORDS SUMMARY | 2022-06-18 15:55 | XMS_ITS | Encounter Summary ---
:1965 Author Organization [place] Address [address] [place] [address]. [place] [address] Care Team Providers Name Role Phone Adrian Mills MD Primary Care Provider [phone] Adrian Mills MD Unavailable Encounter Details Date Type Department Care Team Description 08/20/2020 Travel Social History Tobacco Use Types Packs/Day Years Used Date Never Smoker Smokeless Tobacco: Never Used Alcohol Use Standard Drinks/Week Comments No 0 (1 standard drink = 0.6 oz pure alcoho l) Sex Assigned at Date Recorded Male 01/07/2021 5:29 PM CDT COVID-19 Exposure Response Date Recorded In the last month, have you been in contact with No / Unsure 08/20/2020 2:02 PM LAMINATING MACHINE OFFBEARER someone who was confirmed or suspected to have Coronavirus / COVID-19? documented as of this encounter Plan of Treatment Not on filedocumented as of this encounter Visit Diagnoses Not on filedocumented in this encounter Additional Health Concerns Assessment Noted Time PHQ-9 Depression Total Score: 0 11/30/2018 9:17 AM CDT documented as of this encounter Care Teams Real Estate Officer Relationship Specialty Start Date End Date Adrian Mills MD PCP - General Family Practice 10/29/12 Adrian Mills MD Assigned PCP 08/07/16 08/29/20 [address] [place] [address] documented as of this encounter
--- OUTSIDE RECORDS SUMMARY | 2022-06-18 15:55 | XMS_ITS | Encounter Summary ---
:1965 Author Organization [place] Address [address] [facility] [address] Care Team Providers Name Role Phone Adrian Mills MD Primary Care Provider [phone] Adrian Mills MD Unavailable Reason for Referral Consultation (Routine) - Closed Specialty Diagnoses / Procedures Referred By Contact Refer red To Contact Podiatry Diagnoses Plantar fasciitis of right foot Right foot pain Adrian Mills, Miguel Podiatry MD [address] [place] [id number] [place] [phone] Referral ID Status Reason Start Date Expiration Date Visits Requ ested Visits Authorized [id number] Closed 02/25/2019 02/25/2020 1 1 Reason for Visit Reason Comments Musculoskeletal Problem dryness Encounter Details Date Type Department Care Team Description 02/25/2019 Office Visit [facility] Adrian Mills Right opal t pain (Primary Dx); Clinic Cassidy Waller MD Plantar fasciitis of right foot; [place] [address] [facility] (actinic keratosis) [facility], [address] [place] [address] [place], [place] [phone] (Wo rk) [address] [phone] Social History Tobacco Use Types Packs/Day Years Used Date Never Smoker Smokeless Tobacco: Never Used Alcohol Use Standard Drinks/Week Comments No 0 (1 standard drink = 0.6 oz pure alcoho l) Sex Assigned at Date Recorded Male 01/07/2021 5:29 PM CDT documented as of this encounter Last Filed Vital Signs Vital Sign Reading Time Taken Comments Blood Pressure 124/72 02/25/2019 4:18 PM CDT Pulse 87 02/25/2019 4:18 PM CDT Temperature 36.9 ??C (98.4 ??F) 02/25/2019 4:18 PM CDT Respiratory Rate 16 02/25/2019 4:18 PM CDT Oxygen Saturation 96% 02/25/2019 4:18 PM CDT Inhaled Oxygen Concentration - - Weight 90.7 kg (200 lb) 02/25/2019 4:18 PM CDT Height 179.7 cm (5' 10.75) 02/25/2019 4:18 PM CDT Body Mass Index 28.09 02/25/2019 4:18 PM CDT documented in this encounter Progress Notes Adrian Mills MD - 02/25/2019 4:20 PM CDT Subjective Adam Campbell is a 53 year old male who presents to clinic today for the following health issues: HPI Dryness, redness on right foot, has question/options Has dry patch of skin on his R forearm, scaly. Will flake off and reappear. Has been present for many years. Pain R foot, across entire ball of foot, feels like he's walking on something. Can't go barefoot, wears shoes in the house. Notes will be going on new insurance March 11. Review of Systems Constitutional: Negative. Musculoskeletal: Positive for arthralgias. Skin: Scaly patch on R forearm Neurological: Negative. Objective BP 124/72 (BP Location: Right arm, Patient Position: Chair, Cuff Size: Adult Regular) Pulse 87 Temp 98.4 ??F (36.9 ??C) (Oral) Resp 16 Ht 1.797 m (5' 10.75) Wt 90.7 kg (200 lb) SpO2 96% BMI 28.09 kg/m?? Body mass index is 28.09 kg/m??. Physical Exam Constitutional: He is oriented to person, place, and time. He appears well- developed and well-nourished. Musculoskeletal: Right foot: Normal. There is no tenderness, no bony tenderness and no crepitus. Neurological: He is alert and oriented to person, place, and time. Skin: Solitary AK on lateral R forearm. Nursing note and vitals reviewed. (M79.671) Right foot pain (primary encounter diagnosis) Comment: will go ahead and refer to podiatry now, as will be swithcing to high deuctible plan soon. He feels that this is not plantar fasciitis, but I am leaning that way. Plan: ORTHO SURVEY RESEARCH PROFESSOR REFERRAL (M72.2) Plantar fasciitis of right foot Comment: Plan: ORTHO SURVEY RESEARCH PROFESSOR REFERRAL (L57.0) AK (actinic keratosis) Comment: Verbal consent obtained. Cryo treatment x3 with 15sec thaw. Patient tolerated procedure well. Plan: DESTRUCT PREMALIGNANT LESION, FIRST RTC in 1m or prn Adrian Mills MD documented in this encounter Plan of Treatment Not on filedocumented as of this encounter Procedures Procedure Name Priority Date/Time Associated Diagnosis Comme nts HC DESTRUCT PREMALIGNANT Routine 02/25/2019 4:33 PM AK (actini c keratosis) LESION, FIRST CDT documented in this encounter Visit Diagnoses Diagnosis Right foot pain - Primary Pain in limb Plantar fasciitis of right foot Plantar fascial fibromatosis AK (actinic keratosis) Actinic keratosis documented in this encounter Additional Health Concerns Assessment Noted Time PHQ-9 Depression Total Score: 0 11/30/2018 9:17 AM CDT documented as of this encounter Care Teams Metallurgical Lab Technician Relationship Specialty Start Date End Date Adrian Mills MD PCP - General Family Practice 10/29/12 Adrian Mills MD Assigned PCP 08/07/16 08/29/20 [id number] [address] [id number] documented as of this encounter
--- OUTSIDE RECORDS SUMMARY | 2022-06-18 15:55 | XMS_ITS | Encounter Summary ---
:1965 Author Organization [place] Address [facility] [place] [address] Care Team Providers Name Role Phone Adrian Mills MD Primary Care Provider [phone] Adrian Mills MD Unavailable Adrian Mills MD Unavailable Reason for Visit Reason Onset Date Comments Outreach 09/20/2017 [facility] ATT 1 Encounter Details Date Type Department Care Team Description 09/20/2017 Telephone [facility] Adrian Mills Outreach (PHS ATT 1) Clinic [place] Wall[place] [id number] [place] [address], [address] [place] [address] [address] [place] [address] [place], [place] [phone] (Wo rk) [phone] Social History Tobacco Use Types Packs/Day Years Used Date Never Smoker Smokeless Tobacco: Never Used Alcohol Use Standard Drinks/Week Comments No 0 (1 standard drink = 0.6 oz pure alcoho l) Sex Assigned at Date Recorded Male 01/07/2021 5:29 PM CDT documented as of this encounter Miscellaneous Notes Telephone Encounter - Ruth Valdovinos - 09/20/2017 4:17 PM CST Per outreach, patient is aware of overdue screening and will call on their own time for scheduling. Patient states that he needs to discuss with before scheduling. Thanks GLASS TECHNICIAN documented in this encounter Plan of Treatment Not on filedocumented as of this encounter Visit Diagnoses Not on filedocumented in this encounter Care Teams Tie Man Relationship Specialty Start Date End Date Adrian Mills MD PCP - General Family Practice 10/29/12 Adrian Mills MD PCP - Assigned PCP 08/07/16 11/13/18 [id number] [address] [id number] Adrian Mills MD Assigned PCP 08/07/16 08/29/20 [address] [address] [id number] documented as of this encounter
--- OUTSIDE RECORDS SUMMARY | 2022-06-18 15:55 | XMS_ITS | Encounter Summary ---
:1965 Author Organization [place] Address [address] [place] [address] Care Team Providers Name Role Phone Adrian Mills MD Primary Care Provider [phone] Adrian Mills MD Unavailable Adrian Mills MD Unavailable Reason for Visit Reason Comments Dental Pain Encounter Details Date Type Department Care Team Description 03/20/2017 Emergency [facility] Fernando Reid MD Alveolar osteitis [facility] [address] [phone] Social History Tobacco Use Types Packs/Day Years Used Date Never Smoker Smokeless Tobacco: Never Used Alcohol Use Standard Drinks/Week Comments No 0 (1 standard drink = 0.6 oz pure alcoho l) Sex Assigned at Date Recorded Male 01/07/2021 5:29 PM CDT documented as of this encounter Last Filed Vital Signs Vital Sign Reading Time Taken Comments Blood Pressure 140/95 03/20/2017 2:49 AM CDT Pulse 65 03/20/2017 2:49 AM CDT Temperature 36.2 ??C (97.1 ??F) 03/20/2017 2:49 AM CDT Respiratory Rate 18 03/20/2017 2:49 AM CDT Oxygen Saturation 97% 03/20/2017 5:00 AM CDT Inhaled Oxygen Concentration - - Weight 83.9 kg (185 lb) 03/20/2017 2:49 AM CDT Height - - Body Mass Index 28.13 08/03/2016 10:49 AM SCIENTIFIC PROGRAMMER documented in this encounter Discharge Instructions Discharge InstructionsFernando Reid MD - 03/20/2017 4:48 AM CDT Images from the original note were not included. Dry Socket Dry socket occurs after a tooth is removed (extracted). After a tooth is removed, a blood clot formsin the space where the tooth was. This clot protects the underlying bone until the gum has healed. Dry socket occurs when the blood clot dissolves or falls out too soon, exposing the bone and nerves. This may cause severe pain, which can extend to the jaw or other parts of the face and head. Symptoms usually occur 1 to 3 days after surgery. Dry socket is more likely if the extraction was difficult. Infection also makes dry socket more likely. Smoking or taking control pills can also increase the risk. Home care Medicines: The healthcare provider may prescribe medicine for pain or infection. Follow the healthcare provider???s instructions when using these medicines. If you are given medicine for infection, take it exactly as directed. Do not stop taking it until you are told to. General care ?? If the socket was packed with gauze, follow the healthcare provider???s instructions to care for it. Follow up with your oral surgeon or dentist to have the gauze changed. ?? Rinse your mouth with saltwater or a prescribed mouthwash a few times a day. This flushes food particles from the socket. You may be given a syringe to help flush the socket. If this is the case, follow the healthcare provider???s instructions closely. ?? Place a cold pack wrapped in a thin towel on your jaw over the sore area for 10 minutes at a timeto help reduce pain and swelling. ?? Avoid drinking from a straw. This can make the pain worse. ?? Avoid foods that are hard and may poke the socket. Avoid hot or cold food and drinks until the socket heals. Follow-up care Follow up as directed with your oral surgeon or dentist. Often, your surgeon or dentist will pack the socket until healing is complete. Your pain may go away with the treatment given, but only an oral surgeon or dentist can fully evaluate and treat your dry socket. ?? If a culture was done, you will be notified if the treatment needs to be changed. You can call asdirected for the results. ?? If X-rays were done, they will be reviewed. You will be notified if there is a change in the reading, especially if it affects treatment. Call 911 Call emergency services right away if any of these occur: ?? Trouble breathing or swallowing, wheezing ?? Hoarse voice or trouble speaking ?? Confused ?? Extreme drowsiness or trouble awakening ?? Fainting or loss of consciousness ?? Rapid heart rate When to seek medical advice Call your healthcare provider right away if any of these occur: ?? Increased swelling and redness of the face ?? Pain that worsens or spreads to the neck or ear ?? Fever of 100.4??F (38??C) or higher ?? Unusual drowsiness, headache or stiff neck, weakness ?? Pus draining from the tooth socket ?? Bleeding that is severe or won???t stop with pressure on the area. ?? Unpleasant smell and taste in your mouth Date Last Reviewed: 04/09/2015 ?? 1994-0024 [employer]. [address] [place] [address]. All rights reserved. This information is not intended as a substitute for professional medical care. Always follow your healthcare professional's instructions. documented in this encounter Medications at Time of Discharge Medication Sig Dispensed Refills Start Date End Date albuterol (PROAIR HFA, Inhale 2 puffs into 1 Inhaler 0 06/1207/18/2017 PROVENTIL HFA, VENTOLIN the lungs every 6 HFA) 108 (90 BASE) hours as needed for MCG/ACT shortness of breath / inhalerIndications: dyspnea or wheezing Acute bronchitis due to other specified organisms oxyCODONE-acetaminophen Take 1-2 tablets by 15 tablet 0 06/201707/18/2017 (PERCOCET) 5-325 MG per mouth every 4 hours as tablet needed for pain documented as of this encounter ED Notes Rachel Zurita RN - 03/20/2017 2:48 AM CDT Pt had right lower tooth pulled due to decay 3 days ago and is continuing to have pain and a foul taste in mouth. Fernando Reid MD - 03/20/2017 2:42 AM CDT History Chief Complaint: Dental pain HPI Adam Campbell is a 51 year old male who presents with dental pain. Four days ago, the patient had a right lower molar extracted. Since that time, the pain in the area where the tooth was removed has become more severe. He is also experiencing swelling to the right side of his face. No bleeding. No fever. Allergies: No known drug allergies. Medications: Albuterol inahler Past Medical History: GERD Hyperlipidemia Adjustment disorder with mixed anxiety and depressed mood Past Surgical History: Biopsy Mastectomy Release carpal tunnel Release trigger finger Varicocelectomy Tooth extraction Family History: Cancer - father Connective tissue disorder - sister Social History: Marital Status: Presents to the ED alone Tobacco Use: negative Alcohol Use: negative PCP: Adrian Mills Review of Systems Constitutional: Negative for fever. HENT: Positive for dental problem and facial swelling. All other systems reviewed and are negative. Physical Exam First Vitals: BP: (!) 140/95 Pulse: 65 Heart Rate: 65 Temp: 97.1 ??F (36.2 ??C) Resp: 18 Weight: 83.9 kg (185 lb) SpO2: 99 % Physical Exam Constitutional: He appears well-developed and well-nourished. HENT: Right Ear: External ear normal. Left Ear: External ear normal. Mouth/Throat: Oropharynx is clear and moist. No oropharyngeal exudate. TM's clear bilaterally Right lower molar socket not bleeding. Tender to palpation. No facial tenderness of swelling Eyes: Conjunctivae are normal. Pupils are equal, round, and reactive to light. No scleral icterus. Neck: Normal range of motion. Neck supple. Cardiovascular: Normal rate, regular rhythm, normal heart sounds and intact distal pulses. Exam reveals no gallop and no friction rub. No murmur heard. Pulmonary/Chest: Effort normal and breath sounds normal. No respiratory distress. He has no wheezes.He has no rales. Lymphadenopathy: He has no cervical adenopathy. Neurological: He is alert. Skin: Skin is warm and dry. No rash noted. Psychiatric: He has a normal mood and affect. Emergency Department Course Emergency Department Course: Nursing notes and vitals reviewed. I performed an exam of the patient as documented above. ([id number]) I rechecked the patient and the paste is staying in place. Findings and plan explained to the patient. Patient discharged home with instructions regarding supportive care, medications, and reasons to return. The importance of close follow-up was reviewed. The patient was prescribed percocet Impression & Plan Medical Decision Making: Adam Campbell is a 51 year old male who presents for evaluation of jaw pain. This appears to be secondary to a dental issue (dry socket). There is no abscess detected around the tooth amenable to incision and drainage. The differential diagnosis includes: dry socket, retained tooth fragments, infection, sub-apical abscess, facial cellulitis, alveolitis amongst others. There is no evidence of deep space infections, significant facial swelling, Lemierre's Syndrome or Jasvir's angina. There are no posterior pharyngeal space (RPA, SOLE PAINTER) infections detected. Follow up with a dentist/snout puller today or tomorrow for further work up and treatment. Will start pain medication and we applied dry socket paste here. Dry socket treatment initiated. 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 Discharge Medications: New Prescriptions OXYCODONE-ACETAMINOPHEN (PERCOCET) 5-325 MG PER TABLET Take 1-2 tablets by mouth every 4 hours as needed for pain Nnamdi Santiago, am serving as a scribe on 03/20/2017 at 4:12 AM to personally document services performed by Dr. Reid based on my observations and the provider's statements to me. Fernando Reid MD 03/20/17 [id number] documented in this encounter Plan of Treatment Not on filedocumented as of this encounter Visit Diagnoses Diagnosis Alveolar osteitis Alveolitis of jaw documented in this encounter Care Teams Corporate Recruiter Relationship Specialty Start Date End Date Adrian Mills MD PCP - General Family Practice 10/29/12 Adrian Mills MD PCP - Assigned PCP 08/07/16 11/13/18 [id number] [address] [id number] Adrian Mills MD Assigned PCP 08/07/16 08/29/20 [id number] [address] [id number] documented as of this encounter
--- OUTSIDE RECORDS SUMMARY | 2022-06-18 15:55 | XMS_ITS | Encounter Summary ---
:1965 Author Organization [place] Address [address] [place] [address]. [place] [address] Care Team Providers Name Role Phone Adrian Mills MD Primary Care Provider [phone] Adrian Mills MD Unavailable Reason for Visit Reason Onset Date Comments Erroneous encounter-disregard 12/25/2019 Encounter Details Date Type Department Care Team Description 12/25/2019 Telephone [facility] Adrian Mills Erroneous [facility] Cassidy Waller MD encounter-disregard [facility], [address] [place] [address] [address] [place] [address] [place], [place] [phone] (Wo rk) [address] [phone] Social History Tobacco Use Types Packs/Day Years [...] documented as of this encounter Care Teams Culinary Specialist Relationship Specialty Start Date End Date Adrian Mills MD PCP - General Family Practice 10/29/12 Adrian Mills MD Assigned PCP 08/07/16 08/29/20 [id number] [address] [id number] documented as of this encounter
--- OUTSIDE RECORDS SUMMARY | 2022-06-18 15:55 | XMS_ITS | Encounter Summary ---
:1965 Author Organization [facility] Address [address] [place] [id number] Care Team Providers Name Role Phone Adrian Mills MD Primary Care Provider [phone] Adrian Mills MD Unavailable Adrian Mills MD Unavailable Reason for Visit Reason Comments Foot Problems right foot feels fat x8mon ths thinks its because of the gel in the shoes Encounter Details Date Type Department Care Team Description 07/25/2017 Office Visit [facility] Dawna Morocho, Right f oot pain (Primary Dx); [facility] [place] D[facility], Podiatry/Foot Capsulitis of right foot; [address] [facility] [place]ux [place], [place] [address] [place] [address] [facility] [address] [place], [place] [address] (Wo rk) Social History Tobacco Use Types Packs/Day Years Used Date Never Smoker Smokeless Tobacco: Never Used Alcohol Use Standard Drinks/Week Comments No 0 (1 standard drink = 0.6 oz pure alcoho l) Sex Assigned at Date Recorded Male 01/07/2021 5:29 PM CDT documented as of this encounter Last Filed Vital Signs Vital Sign Reading Time Taken Comments Blood Pressure 100/72 07/25/2017 10:10 AM NETWORK CONSULTANT Pulse - - Temperature - - Respiratory Rate - - Oxygen Saturation - - Inhaled Oxygen Concentration - - Weight 87.5 kg (192 lb 12.8 oz) 07/25/2017 10:10 AM NETWORK CONSULTANT Height 177.8 cm (5' 10) 07/25/2017 10:10 AM NETWORK CONSULTANT Body Mass Index 27.66 07/25/2017 10:10 AM NETWORK CONSULTANT documented in this encounter Patient Instructions Patient InstructionsJewel Gonzales - 07/25/2017 10:[address] [facility] LOCATIONS: Monday - [place] MONDAY - [place] [address] [facility] [address] [place] [address] [place] [address] / FX [id number] / FX [phone] MONDAY - [place] [address] [address] [address] / FX [phone] MONDAY PM - [place] SCHEDULE SURGERY: [phone] APPOINTMENTS: [phone] [place] [address] BILLING QUESTIONS: [phone] / FX [phone] CAPSULITIS / METATARSALGIA All joints in the body are surrounded by a capsule, or a covering of soft tissue and ligaments. The capsule holds bones together and secretes joint fluid to help lubricate the joint. If a joint capsuleis exposed to excessive force, it can develop microscopic tears and become inflamed. This commonly occurs in the foot due to mild variation in anatomy. Hammertoes, bunions, irregular bone length, jointimmobility, etc. can all lead to excessive force on the joint. Capsule injury can also occur due to repetitive stress from exercise, insufficient support from shoes, excessive bare foot walking and excessive weight. Conservative treatments include ice, rest from the aggravating activity, weight loss, orthotic inserts, improving shoes and shoe modifications. Appropriate shoes will protect the inflamed tissue improving the chances of healing. Avoidance of standing or walking barefoot, including around the house, is necessary to allow healing. Casts are sometimes used for more aggressive protection. NSAIDs such as Advil are also used to help with pain and decreasing inflammation. If pain continues over a period ofweeks with continuous rest and icing, Corticosteroid injections can be a treatment option to try andhelp decrease inflammation. Surgery is often necessary to correct the underlying structural problem. Surgery might include shortening an excessively long bone, repairing bunion or hammertoe, lengthening a tight Achilles??? tendon, etc. These are same day surgeries that might be pursued if more conservative measures fail to provide relief. The inflamed joint capsule has the potential to completely tear. This will allow the toe to drift off the ground, curving toward the other toes. The involved toe may under or overlap the adjacent toes as drift continues. The pain may improve after the joint tears or this new position will be permanent. Surgery can address the toe alignment. Your goal of treating capsulitis is to avoid this scenario. DEGENERATIVE ARTHRITIS OF THE BIG TOE JOINT (hallux limitus/hallux rigidus) Arthritis of the joint at the base of the big toe (metatarsophalangeal joint) has several causes. Usually it results from repetitive trauma to the joint, secondary to abnormal foot mechanics. Often it is hereditary. However, a one- time traumatic event can lead to arthritis. The condition doesn't improve with time, and even with treatment, can worsen. The cartilage wears out, joint surfaces are no longer smooth, bone rubs on bone, inflammation occurs with pain, and eventually bone spurs and loose fragments might develop. The joint is often painful with activity, worse with flimsy shoes or walking barefoot, and it slowlyprogresses over time. A person might notice the toe locking up with walking. There often is an obvious, and irritating, bony bump on top of the foot. Shoes might be uncomfortable. In some people the pain is so bothersome that recreational activities sometimes even normal daily activities are difficult to perform. The pain from this arthritis is likely a combination of joint jamming, cartilage loss and inflammation, and irritation from shoes rubbing on the bump. Sometimes other parts of the foot, leg, or back hurt from altering one's walk to compensate for the painful jOint. Ways to help a person live with the discomfort include wearing a good, supportive shoe with a rigid,rocker-type bottom. An example is a hiking boot. A rigid sole minimizes bending of the joint, and therefore, joint motion and pain. Shoes with a high toe box allow for less rubbing on the bump. Avoiding barefoot walking, sandals, flip-flops and slippers usually helps. Sometimes an insert or orthotic provides symptom relief. This might make shoe fit more difficult. Pads over the bump and occasionally injections into the joint provide relief. Surgery for this condition is aimed towards alleviating pain. It does not cure the arthritis nor does it guarantee better joint motion. Depending on the condition of the metatarsophalangeal joint, there are several surgiqal options: 1. Cutting off the bony bump(s) and cleaning the joint 2. Loosening the joint up by making cuts in the first metatarsal bone or the big toe bone and removing a small section of bone. 3. Repositioning bone to minimize jamming of the joint. 4. In severe cases, the joint is fused. By fusing the joint, it will never bend again. This resolves the pain, because it's the movement of a worn out jOint that causes pain. Oftentimes the operation involves a combination of these procedures and. requires the use of screws, pins, and/or a small surgical plate. Healing after surgery requires about six weeks of protection. This allows the bone to heal. Maximum recovery takes about one year. The scar tissue and joint structures require this amount of time to finish the healing process. Expect stiffness, swelling and numbness during that time frame. Surgery for arthritis of the metatarsophalangeal joint does involve side effects. Some side effects are predictable and others are less common but do occur. A scar will be visible and could be irritated by shoes. The shoe may rub on the screw or internal pin requiring surgical removal of these fixation devices. The screw and pin would likely be left in place for a full year. The first toe may remain stiff after surgery. The amount of stiffness is variable. Most people never regain normal motion of the first toe. This is due to scar tissue inherent to any surgery, in addition to the cumUlative effects of arthritis. Sometimes the big toe drifts to one side or the other. Joint fusion is one option tocorrect an unstable, drifting toe. This procedure straightens the toe, however, no motion remains. All surgical procedures involve risk of infection, numbness, pain, delayed bone healing, osteotomy (bone cut) dislocation, blood clots, continued foot pain, etc. Arthritic joint surgery is quite complex and should not be taken lightly. Any skin incision can lead to infection. Deep infection might involve the bone and thus repeat surgery and six weeks of IV antibiotics. Scar tissue can cause nerve pain or numbness. his is generally temporary but can be permanent. We do not have treatments that cure nerve problems. Second toe pain could be related to altered mechanics and pressure transferred to the second toe. Delayed bone healing would lengthen the healing time. Some bones simply do not heal. This requires repeat surgery, electronic bone stimulation and/or extended protection. Smokers have an approximate 20% chance of poor bone healing. This is double that of a non-smoker. The bone cut may displace. This may need to be repaired with a second operation. Displacement can cause joint malalignment. Immobility after surgery can cause a blood clot in the legs and lungs. This could result in . Foot pain is complex. Most feet hurt for more than one reason. Operating on the arthritic big toe joint will not necessarily create a pain free foot. Appropriate shoes, healthy body weight, avoidance of bare foot walking and moderation of activity will always be necessary to enjoy foot comfort. Arthritis is incurable even with surgery. Surgery for this type of arthritis is nevertheless quite successful. Most surgical patients are pleased with their foot following surgery. Many of the issues described above can be controlled by takingproper care of your foot during the healing process. Cosmetic bump surgery is discouraged for the reasons listed above. A bump and joint that is comfortable when wearing appropriate shoes should simply be treated with appropriate shoes. Your surgeon would be happy to fully describe any of the above issues. You should pursue a full understanding of the operation, recovery process and any potential problems that could develop. Body Mass Index (BMI) Many things can cause foot and ankle problems. Foot structure, activity level, foot mechanics and injuries are common causes of pain. One very important issue that often goes unmentioned, is body weight. Extra weight can cause increased stress on muscles, ligaments, bones and tendons. Sometimes just a few extra pounds is all it takesto put one over her/his threshold. Without reducing that stress, it can be difficult to alleviate pain. Some people are uncomfortable addressing this issue, but we feel it is important for you to thinkabout it. As Foot & Ankle specialists, our job is addressing the lower extremity problem and possible causes. Regarding extra body weight, we encourage patients to discuss diet and weight management plans with their primary care doctors. It is this team approach that gives you the best opportunityfor pain relief and getting you back on your feet. ORK CONSULTANT documented in this encounter Progress Notes Dawna Morocho DPM, Podiatry/Foot and Ankle Surgery - 07/25/2017 10:00 AM NETWORK CONSULTANT PATIENT HISTORY: Adam Campbell is a 52 year old male who presents to clinic for discomfort to the ball of the foot. Notes it is all the time with walking. 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 Denies injury. Pain is 2/10. Would like to know what is causing pain. Review of Systems: Patient denies fever, chills, rash, wound, stiffness, limping, numbness, weakness, heart burn, blood in stool, chest pain with activity, calf pain when walking, shortness of breath with activity, chronic cough, easy bleeding/bruising, swelling of ankles, excessive thirst, fatigue, de pression, anxiety. PAST MEDICAL HISTORY: Past Medical History: Diagnosis Date ??? Gastro-oesophageal reflux disease ??? NO ACTIVE PROBLEMS PAST SURGICAL HISTORY: Past Surgical History: Procedure Laterality Date ??? BIOPSY left breast bx 2009 ??? 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 RELEASE CARPAL TUNNEL 02/12/2014 Procedure: RELEASE CARPAL TUNNEL; Surgeon: Roldan Garza MD; Location: [facility] OR ??? RELEASE TRIGGER FINGER 02/12/2014 Procedure: RELEASE TRIGGER FINGER; Surgeon: Roldan Garza MD; Location: [facility] OR ??? VARICOCELECTOMY Left MEDICATIONS: Current Outpatient Prescriptions: ??? doxycycline (VIBRAMYCIN) 100 MG capsule, Take 1 capsule (100 mg) by mouth 2 times daily for 10 days, Disp: 20 capsule, Rfl: 0 ALLERGIES: No Known Allergies SOCIAL HISTORY: Social History Social History ??? Marital status: Spouse name: N/A ??? Number of children: 2 ??? Years of education: N/A Occupational History ??? [employer] [id number] Social History Main Topics ??? Smoking status: Never Smoker ??? Smokeless tobacco: Never Used ??? Alcohol use No ??? Drug use: No ??? Sexual activity: Yes Partners: Female control/ protection: Surgical Other Topics Concern ??? Not on file Social History Narrative FAMILY HISTORY: Family History Problem Relation Age of Onset ??? CANCER Father throat cancer, step father ??? CANCER Maternal Grandmother ??? Connective Tissue Disorder Sister MS (half sister) EXAM:Vitals: BP 100/72 Ht 5' 10 (1.778 m) Wt 192 lb 12.8 oz (87.5 kg) BMI 27.66 kg/m2 BMI= Body mass index is 27.66 kg/(m^2). General appearance: Patient is alert and fully cooperative with history & exam. No sign of distress is noted during the visit. Psychiatric: Affect is pleasant & appropriate. Patient appears motivated to improve health. Respiratory: Breathing is regular & unlabored while sitting. HEENT: Hearing is intact to spoken word. Speech is clear. No gross evidence of visual impairment that would impact ambulation. Dermatologic: Skin is intact to both lower extremities without significant lesions, rash or abrasion. No paronychia or evidence of soft tissue infection is noted. Vascular: DP & PT pulses are intact & regular bilaterally. No significant edema or varicosities noted. CFT and skin temperature is normal to both lower extremities. Neurologic: Lower extremity sensation is intact to light touch. No evidence of weakness or contracture in the lower extremities. No evidence of neuropathy. Musculoskeletal: Patient is ambulatory without assistive device or brace. Decrease range of motion of the right 1st metatarsal phalangeal joint. No pain with range of motion. Minimal pain on palpation of plantar right 2nd metatarsal head. ASSESSMENT: Right foot pain Capsulitis of right foot Hallux limitus, right PLAN: Reviewed patient[facility] in [facility]. Reviewed and discussed causes of capsulitis. Talked about how the elongated 2nd metatarsal can cause more pressure to occur to the joint. We talked about treatments such as padding, orthotics, injection, physical therapy, immobilization, MRI, and possible surgery to shorten metatarsal. Reviewed and discussed causes of hallux limitus with patient. Explained that it is a progressive arthritis meaning that over time, there is decrease in the joint space as well as bony spurring that occurs which leads to pain in the big toe especially with bending motions of the big toe joint. Discussed treatment options with patient including rigid soled shoes or orthotics that are stiff under the big toe that help to prevent motion at that joint which is leading to pain and inflammation. We discussed that sometimes cortisone injections can help with the pain or physical therapy treatments such asultrasound. Discussed that this is normally a structural issue in the foot and if conservative therapy doesn't work, surgery is considered. We discussed that depending on the quality of the cartilage of the joint determines if patient will need a joint sparing or fusion procedure. Discussed that this can usually not be determined by x-ray and is an intra- op position. With joint sparing procedure, patient is normally minimally weight bearing in a cam boot for 6 weeks. With fusion, patient is normally non weight bearing for 6 weeks. Discussed that the biomechanics of his foot is causing the decrease range of motion of the right great toe and more pressure is going through the 2nd toe. Recommend inserts with metatarsal pad. He willfollow up as needed. Dawna Morocho DPM, Podiatry/Foot and Ankle Surgery Weight management plan: Patient was referred to their PCP to discuss a diet and exercise plan. CST documented in this encounter Nursing Notes Jewel Gonzales - 07/25/2017 10:00 AM CST Chief Complaint Patient presents with ??? Foot Problems right foot feels fat a0sdpago thinks its because of the gel in the shoes Initial BP 100/72 Ht 1.778 m (5' 10) Wt 87.5 kg (192 lb 12.8 oz) BMI 27.66 kg/m2 Estimated body mass index is 27.66 kg/(m^2) as calculated from the following: Height as of this encounter: 1.778 m (5' 10). Weight as of this encounter: 87.5 kg (192 lb 12.8 oz). Medication Reconciliation: complete Jewel Gonzales MA ORK CONSULTANT documented in this encounter Plan of Treatment Not on filedocumented as of this encounter Visit Diagnoses Diagnosis Right foot pain - Primary Pain in limb Capsulitis of right foot Enthesopathy of ankle and tarsus, unspec ified Hallux limitus, right documented in this encounter Care Teams Gear Tester Relationship Specialty Start Date End Date Adrian Mills MD PCP - General Family Practice 10/29/12 Adrian Mills MD PCP - Assigned PCP 08/07/16 11/13/18 [id number] MADY KELLY [id number] Adrian Mills MD Assigned PCP 08/07/16 08/29/20 [id number] M[address] [id number] documented as of this encounter
--- OUTSIDE RECORDS SUMMARY | 2022-06-18 15:55 | XMS_ITS | Encounter Summary ---
:1965 Author Organization [facility] Address [address] [facility] [place] [address] Care Team Providers Name Role Phone Adrian Mills MD Primary Care Provider [phone] Adrian Mills MD Unavailable Reason for Referral Diagnostic Imaging XR (Routine) - Closed Specialty Diagnoses / Procedures Referred By Contact Refer red To Contact Diagnoses Shortness of breath Adrian Mills MD Procedures XR Chest 2 Views [id number] [address] [place] [id number] Referral ID Status Reason Start Date Expiration Date Visits Requ ested Visits Authorized [id number] Closed 08/20/2020 08/20/2021 1 1 E COORDINATOR Reason for Visit Reason Comments Hospital F/U Encounter Details Date Type Department Care Team Description 08/20/2020 Office Visit [facility] Adrian Mills [facility] discharge follow-up (Primary Dx); Clinic Derek Waller MD Malignant neoplasm of pancreas, unspecif ied location of malignancy (H); [id number] [address] [address] Jaundice; [place] Acute biliary pancreatitis with uninfected necrosis; [id number] Shortness of breath; [phone] Pleural effusio n, right (Work) Social History Tobacco Use Types Packs/Day Years Used Date Never Smoker Smokeless Tobacco: Never Used Alcohol Use Standard Drinks/Week Comments No 0 (1 standard drink = 0.6 oz pure alcoho l) Sex Assigned at Date Recorded Male 01/07/2021 5:29 PM CDT COVID-19 Exposure Response Date Recorded In the last month, have you been in contact with No / Unsure 08/20/2020 2:02 PM HOUSE COORDINATOR someone who was confirmed or suspected to have Coronavirus / COVID-19? documented as of this encounter Last Filed Vital Signs Vital Sign Reading Time Taken Comments Blood Pressure 110/64 08/20/2020 2:14 PM HOUSE COORDINATOR Pulse 96 08/20/2020 2:14 PM HOUSE COORDINATOR Temperature 36.3 ??C (97.4 ??F) 08/20/2020 2:14 PM HOUSE COORDINATOR Respiratory Rate 14 08/20/2020 2:14 PM HOUSE COORDINATOR Oxygen Saturation 98% 08/20/2020 2:14 PM HOUSE COORDINATOR Inhaled Oxygen Concentration - - Weight 77.6 kg (171 lb) 08/20/2020 2:14 PM HOUSE COORDINATOR Height - - Body Mass Index 24.02 02/25/2019 4:18 PM CDT documented in this encounter Patient Instructions Patient InstructionsBendAdrian rosa MD - 08/20/2020 2:20 PM CST Increase right lower lung effusion E COORDINATOR documented in this encounter Progress Notes Adrian Mills MD - 08/20/2020 2:20 PM CST Subjective Adam Campbell is a 55 year old male who presents to clinic today for the following health issues: HPI Hospital Follow-up Visit: Hospital/Skilled Nursing/IP Rehab Facility: [facility] Date of Admission: 08/12/2020 Date of Discharge: 08/15/2020 Reason(s) for Admission: abdominal pain Was your hospitalization related to COVID-19? No Problems taking medications regularly: None Medication changes since discharge: None Problems adhering to non-medication therapy: None Summary of hospitalization: CareEverywhere information obtained and reviewed Diagnostic Tests/Treatments reviewed. Follow up needed: none Other Healthcare Providers Involved in Patient???s Care: None Update since discharge: improved. Post Discharge Medication Reconciliation: discharge medications reconciled, continue medications without change. Plan of care communicated with patient Notes 07/29 suddenly became jaundiced, seen at ED in [place]. Initially transferred to [place], and then to [place] Where he had a biopsy and stent to relieve hepatic obstruction. Is still recovering from acute pancreatitis and ascites. Does have PICC in place. Is using narcotics. F/u with oncology/surgery. Is currently only on low residue, high protein, low fat. Has lost about 30# in the last severalweeks. No fever, MATA, changes in bowel habits. Notes concerns of shortness of breath, feels winded very quickly. This is pretty stable. Can get winded even if talking more. Review of Systems Constitutional: Positive for diaphoresis and fatigue. Respiratory: Negative. Cardiovascular: Negative. Gastrointestinal: Positive for abdominal pain. Negative for constipation and nausea. Genitourinary: Negative. Objective BP 110/64 (BP Location: Right arm, Patient Position: Chair, Cuff Size: Adult Regular) Pulse 96 Temp 97.4 ??F (36.3 ??C) (Oral) Resp 14 Wt 77.6 kg (171 lb) SpO2 98% BMI 24.02 kg/m?? Body mass index is 24.02 kg/m??. Physical Exam Vitals signs reviewed. Eyes: Conjunctiva/sclera: Conjunctivae normal. Cardiovascular: Rate and Rhythm: Normal rate and regular rhythm. Heart sounds: Normal heart sounds. Pulmonary: Effort: Pulmonary effort is normal. Breath sounds: Examination of the right-lower field reveals decreased breath sounds. Decreased breath sounds present. No wheezing, rhonchi or rales. Skin: General: Skin is warm and dry. Neurological: Mental Status: He is alert and oriented to person, place, and time. Assessment and Plan (Z09) Hospital discharge follow-up (primary encounter diagnosis) Comment: stable, noting some persistent ALVAREZ Plan: (C25.9) Malignant neoplasm of pancreas, unspecified location of malignancy (H) Comment: noted for PL, following at January Plan: (R17) Jaundice Comment: resolved, obstructed hepatic duct from tumor Plan: (K85.11) Acute biliary pancreatitis with uninfected necrosis Comment: resolving Plan: (R06.02) Shortness of breath Comment: marked RLL effusion Plan: XR Chest 2 Views (J90) Pleural effusion, right Comment: noted, to be small amount on [facility] XR 08/12 - advised to f/u with them LAXMI Plan: RTC in Adrian Mills MD E COORDINATOR documented in this encounter Plan of Treatment Not on filedocumented as of this encounter Procedures Procedure Name Priority Date/Time Associated Diagnosis Comme nts XR CHEST 2 VIEWS Routine 08/20/2020 3:03 PM Shortness of breat h Results for this HOUSE COORDINATOR procedure are i n the results section. documented in this encounter Results XR Chest 2 Views (08/20/2020 3:03 PM HOUSE COORDINATOR) Anatomical Region Laterality Modality Chest Computed Radiography Specimen (Source) Anatomical Location Collection Method / Collectio n Time Received Time / Laterality Volume Impressions 08/20/2020 4:22 PM HOUSE COORDINATOR IMPRESSION: Two views of the chest were obtained. Cardiomediastinal silhouette is within normal limits. Smal l left pleural effusion with associated basilar atelectasis/consolida tion. No significant pleural effusion. No significant pneumothorax. L eft upper extremity PICC tip projects over low SVC. ABILIO CARSON MD Narrative 08/20/2020 4:22 PM HOUSE COORDINATOR CHEST TWO VIEWS ?? 08/20/2020 3:03 PM [...] PHILIP documented in this encounter Visit Diagnoses Diagnosis Hospital discharge follow-up - Primary Other follow-up examination Malignant neoplasm of pancreas, unspecif ied location of malignancy (H) Jaundice Jaundice, unspecified, not of Acute biliary pancreatitis with uninfect ed necrosis Shortness of breath Pleural effusion, right Unspecified pleural effusion documented in this encounter Additional Health Concerns Assessment Noted Time PHQ-9 Depression Total Score: 0 11/30/2018 9:17 AM CDT documented as of this encounter Care Teams Angiographer Relationship Specialty Start Date End Date Adrian Mills MD PCP - General Family Practice 10/29/12 Adrian Mills MD Assigned PCP 08/07/16 08/29/20 [address] [place] [address] documented as of this encounter
--- OUTSIDE RECORDS SUMMARY | 2022-06-18 15:55 | XMS_ITS | Encounter Summary ---
:1965 Author Organization [facility] Address [address] [place] [address] Care Team Providers Name Role Phone Adrian Mills MD Primary Care Provider [phone] Adrian Mills MD Unavailable Adrian Mills MD Unavailable Reason for Visit Reason Onset Date Comments No Show 03/15/2017 Encounter Details Date Type Department Care Team Description 03/15/2017 Office Visit [facility] Adrian Mills NO SHOW ( Primary Dx) [place] [address] [address] [address] [facility], [address] [phone] (Wo rk) [address] [phone] Social History Tobacco Use Types Packs/Day Years Used Date Never Smoker Smokeless Tobacco: Never Used Alcohol Use Standard Drinks/Week Comments No 0 (1 standard drink = 0.6 oz pure alcoho l) Sex Assigned at Date Recorded Male 01/07/2021 5:29 PM CDT documented as of this encounter Progress Notes Nohemi Ngo MA - 03/15/2017 8:20 AM CDT This patient was a no show for this scheduled appointment. documented in this encounter Plan of Treatment Not on filedocumented as of this encounter Visit Diagnoses Diagnosis NO SHOW - Primary documented in this encounter Care Teams Media Analytics Manager Relationship Specialty Start Date End Date Adrian Mills MD PCP - General Family Practice 10/29/12 Adrian Mills MD PCP - Assigned PCP 08/07/16 11/13/18 [id number] [address] [id number] Adrian Mills MD Assigned PCP 08/07/16 08/29/20 [address] [place] [place] [id number] documented as of this encounter
--- OUTSIDE RECORDS SUMMARY | 2022-06-18 15:55 | XMS_ITS | Encounter Summary ---
:1965 Author Organization [facility] Address [address] [place] [address]. [place] [address] Care Team Providers Name Role Phone Adrian Mills MD Primary Care Provider [phone] Adrian Mills MD Unavailable Encounter Details Date Type Department Care Team Description 02/25/2019 Travel Social History Tobacco Use Types Packs/Day [...] documented as of this encounter Care Teams Boat Camp Operator Relationship Specialty Start Date End Date Adrian Mills MD PCP - General Family Practice 10/29/12 Adrian Mills MD Assigned PCP 08/07/16 08/29/20 [address] [facility] [place] [address] documented as of this encounter
[2022-06-18 15:56] LABS: Calcium* 8.9 mg/dL (8.4-10.6)
--- OUTSIDE RECORDS SUMMARY | 2022-06-18 15:56 | XMS_ITS | Encounter Summary ---
:1965 Author Organization [facility] Address [address] [place] [address] Care Team Providers Name Role Phone Adrian Mills MD Primary Care Provider Reason for Visit Auth/Cert - Closed Specialty Diagnoses / Procedures Referred By Contact Refer red To Contact Surgery Diagnoses Carpal tunnel, trigger finger right [facility] Services Procedures RELEASE CARPAL TUNNEL RELEASE TRIGGER FINGER [address] [place] [phone] Phone: Fax: Referral ID Status Reason Start Date Expiration Date Visits Requ ested Visits Authorized [id number] Closed 1 1 Encounter Details Date Type Department Care Team Description 02/12/2014 Hospital Encounter [facility] Latanya Page, Post-op pain [place] PreOP/PostOP MD (Primary Dx) [address] [address] [place], [place] [address] [address] [place], [place] [phone] [id number] Social History Tobacco Use Types Packs/Day Years Used Date Never Smoker Smokeless Tobacco: Never Used Alcohol Use Standard Drinks/Week Comments No 0 (1 standard drink = 0.6 oz pure alcoho l) Sex Assigned at Date Recorded Male 01/07/2021 5:29 PM CDT documented as of this encounter Last Filed Vital Signs Vital Sign Reading Time Taken Comments Blood Pressure 126/78 02/12/2014 2:30 PM CDT Pulse - - Temperature 36.6 ??C (97.9 ??F) 02/12/2014 2:30 PM CDT Respiratory Rate 14 02/12/2014 2:30 PM CDT Oxygen Saturation 97% 02/12/2014 2:30 PM CDT Inhaled Oxygen Concentration - - Weight 83.9 kg (185 lb) 02/12/2014 11:05 AM CDT Height 172.7 cm (5' 8) 02/12/2014 11:05 AM CDT Body Mass Index 28.13 02/12/2014 11:05 AM CDT documented in this encounter Discharge Instructions Discharge InstructionsMariela Covington RN - 02/12/2014 1:27 PM CDT MINOR SURGERY DISCHARGE INSTRUCTIONS DRS. LATANYA PAGE AND ADAM JAVED [phone] DRESSING Keep dressing dry and in place until 2 days after surgery. Replace dressing daily until the 1st post-operative visit. DRAINAGE There will be drainage. If bleeding should occur and soaks through the dressing apply a sterile, drydressing over it and tape it in place. If bleeding persists, apply gentle steady pressure with your hand over the dressing for 5 minutes. If abundant bleeding does not stop, call your doctor. SKIN CLOSURE You may have stitches or special skin closures. You will be given an appointment for the removal of any external stitches. You may have stitches under the skin which will absorb. You may have steri-strips over the incision. These look like thin tapes and will peel off in 5-7 days. If they don't after 7 days, you may carefully remove them. You may shower with the steri-strips but do not soak them, as with swimming or taking a bath. A protective covering of plastic may be placed over external stitchesfor showering. NOTIFY YOUR PHYSICIAN IF YOU HAVE ANY OF THE FOLLOWING SYMPTOMS: 1. Fever greater than 102 degrees 2. Excessive bleeding or drainage 3. Disruption of the skin closure 4. Swelling, redness or excessive tenderness at the site 5. Severe pain 6. Drainage that is green, yellow, thick white or has a bad odor FOLLOW UP The post-operative visit should have been scheduled at the time you scheduled the surgery. If it wasnot done, please call my office tomorrow. For other urgent concerns, call [phone]. documented in this encounter Medications at Time of Discharge Medication Sig Dispensed Refills Start Date End Date HYDROcodone-acetaminophen Take 1-2 tablets by 20 tablet 0 0 02/12/2014 11/03/2014 (NORCO) 5-325 MG per mouth every 6 hours tabletIndications: as needed for other Post-op pain (Moderate to Severe Pain) Ibuprofen (ADVIL PO) 0 07/12 multivitamin, therapeutic Take 1 tablet by 0 07/24/2015 (THERA-VIT) TABS mouth daily Omeprazole (PRILOSEC PO) Take 40 mg by mouth 0 07/24/2015 every morning Takes Every other day documented as of this encounter Miscellaneous Notes Op Note - Latanya Page MD - 02/12/2014 1:16 PM CDT PREOPERATIVE DIAGNOSES: 1. Right carpal tunnel syndrome. 2. Right ring trigger finger. 3. Right little trigger finger. POSTOPERATIVE DIAGNOSES: 1. Right carpal tunnel syndrome. 2. Right ring trigger finger. 3. Right little trigger finger. PROCEDURES: 1. Right carpal tunnel release. 2. Trigger finger release, right ring finger. 3. Trigger finger release, right little finger. ANESTHESIA: Local anesthesia. SURGEON: Latanya Page MD PEDIATRIC ANESTHESIOLOGIST: Westley Dawkins PA-C TYPE OF ANESTHESIA: Local anesthesia with 1% Xylocaine. INDICATIONS FOR THE PROCEDURE: Mr. Adam Kaiser is currently a 48-year-old gentleman who has had chronic paresthesia symptoms of numbness involving thumb, index and long fingers as well as catching and pain, in particular the little finger but to a lesser degree the ring finger as well of the right hand. Clinical examination was consistent with a chronic carpal tunnel syndrome with progressive worsening and chronic trigger finger phenomenon involving the ring finger and little finger. With understanding of the situation and options available, he wanted to go ahead with surgical intervention at this time because of progressive worsening. DESCRIPTION OF PROCEDURE: In the supine position, the right hand was prepped and draped in routine sterile fashion. Tourniquet was placed and subsequently used for the carpal tunnel release portion of the surgery, but not for the trigger finger release portion of the surgery. 1% Xylocaine was infiltrated into the incision sites for 3 different areas for the palm for the carpal tunnel release and for the A1 selwyn region of the ring and little fingers of the right hand. With satisfactory anesthesia obtained at this point, the procedure began with a trigger finger release of the ring finger. A small transverse incision was made and neurovascular bundles were retracted away from the midline, exposing the A1 selwyn. Under direct visualization, the A1 selwyn was divided in a longitudinal fashion. With flexion and extension of the finger movement, there was a buckling ofthe tendon and swelling which was felt to be the cause of the triggering phenomenon. With irrigation, the wound was closed with interrupted nylon sutures. Identical procedure was performed for the little finger. Upon release of the A1 selwyn, the damage to the flexor tendon was more prominent for the little finger compared to the ring finger. Once the W6zyzoci was released, he was not able to catch or lock with the flexion and extension of the finger at that time. With wound closure of the little finger trigger finger surgery, then we paid our attention to the carpal tunnel release. A longitudinal incision was made from the wrist crease down to the first webspace level, that is thelevel of Brownlee's line. With sharp dissection through the skin and subcutaneous tissue, the underlying palmar aponeurosis was identified and this was divided in line with the incision as well. The underlying transverse carpal ligament was then identified and this was divided in a longitudinalfashion exposing the contents of the carpal tunnel. Further proximally the distal extension of brachial fascia was released using the tenotomy technique adjacent to the Nash's longus tendon. The little finger was easily passed into the space at this time. With a confirmation of complete release of the transverse carpal ligament distally, the wound was irrigated and closed in a standard fashion withnonabsorbable sutures. A soft dressing and reinforcing plaster splint was applied in the palm. The patient was then taken to the recovery room in stable condition. Blood loss was less than 10 cc. No int raoperative complications noted. Needle count and sponge count were correct at the end of the case. LATANYA PAGE MD MT: [id number] Name: ADAM KAISER Account: [id number] : 1965 Procedure Date: 02/12/2014 Document: [id number] Brief Op Note - Latanya Page MD - 02/12/2014 1:06 PM CDT [facility] Brief Operative Note Pre-operative diagnosis: Carpal tunnel, trigger finger right Post-operative diagnosis right carpal tunnel syndrone, right trigger ring finger and right trigger litttle finger Procedure: Procedure(s): RELEASE CARPAL TUNNEL RELEASE TRIGGER FINGER, ring and little finger Surgeon: Latanya Page MD, Assistants(s): RAHEL Tse Anesthesia: Local Estimated blood loss: * No blood loss amount entered * Drains: None Specimens: None Implants: See the dictated op note Complications: None documented in this encounter Plan of Treatment Not on filedocumented as of this encounter Procedures Procedure Name Priority Date/Time Associated Diagnosis Comme nts RELEASE, TRIGGER 02/12/2014 12:31 PM right carpal tunn el FINGER CDT syndrone, right trigger ring finger and right trigger litttle finger Special Needs 5'8 185# stated RELEASE, CARPAL TUNNEL 02/12/2014 12:31 PM CDT right c arpal tunnel syndrone, right trigger ring finger an d right trigger litttle finger Special Needs 5' 185# stated documented in this encounter Visit Diagnoses Diagnosis Post-op pain - Primary Other acute postoperative pain documented in this encounter Administered Medications Inactive Administered Medications - up to 3 most recent administrations Medication Order MAR Action Action Date Dose Rate Site celecoxib (celeBREX) capsule 400 Given 02/12/2014 11:11 AM CDT 4 00 mg mg 400 mg, Oral, PRE-OP/PRE-PROCEDURE, Starting on Mon02/12/14 at 1105, For 1 dose, Pre-procedure HYDROcodone-acetaminophen (NORCO) 5-325 MG Given 02/12 2:15 PM CDT 1 tablet per tablet 1-2 tablet 1-2 tablet, Oral, ONCE PRN, moderate to severe pain, Starting on Mon02/12/14 at 1325, For 1 dose, One time prior to discharge. Maximum acetaminophen dose from all sources= 75 mg/kg/day not to exceed 4 grams, Post-procedure pregabalin (LYRICA) capsule 50 mg Given 02/12/2014 11:11 AM CDT 50 mg 50 mg, Oral, PRE-OP/PRE-PROCEDURE, Starting on Mon02/12/14 at 1105, Pre-procedure documented in this encounter Active and Recently Administered Medications Times are shown in CDT. Scheduled Medication Order 02/10/2014 02/11/2014 02/12/2014 celecoxib (celeBREX) capsule 400 mg (COMPLETED) 1111 (Given - Provider: Mandi Thurston, RN) 400 mg, Oral, PRE-OP/PRE-PROCEDURE, Star ting on Mon02/12/14 at 1105, For 1 dose, Pre-procedure pregabalin (LYRICA) capsule 50 mg (CANCELED) 1111 (Given - Provider: Mandi Thurston, TETO) 50 mg, Oral, PRE-OP/PRE-PROCEDURE, Starting Mon02/12/14 at 1105, Pre-procedure PRN Medication Order 02/10/2014 02/11/2014 02/12/2014 HYDROcodone-acetaminophen (NORCO) 5-325 MG per tablet 1-2 tablet (COMPLETED) 1415 (Given - Provider: Mariela Covington, TETO) 1-2 tablet, Oral, ONCE PRN, moderate to severe pain, Starting Mon02/12/14 at 1325, For 1 dose, One time prior to discharge. Maximum acetaminophen dose from all sources= 75 mg/kg/day not to exceed 4 grams, Post-procedure lidocaine (PF) (XYLOCAINE) 1 % injection (CANCELED) 1320 (Given - Provider: Latanya Page MD) PRN, Starting Mon02/12/14 at 1320, Intra-procedure documented in this encounter Care Teams Store Standards Associate Relationship Specialty Start Date End Date Adrian Mills MD PCP - General Family Practice 10/29/12 documented as of this encounter
--- OUTSIDE RECORDS SUMMARY | 2022-06-18 15:56 | XMS_ITS | Encounter Summary ---
:1965 Author Organization [place] Address [address] [facility] [place] [address] Care Team Providers Name Role Phone Adrian Mills MD Primary Care Provider [phone] Reason for Visit Reason Onset Date Comments Clinic Care Coordination - Follow-up 12/04/2013 Pt declined f/u visit, so clinical progress assesses by phone. Encounter Details Date Type Department Care Team Description 12/04/[address] [facility] H[facility] Care Coordination Vascular Clinic Luis Angel a - Follow-up (Pt declined [address] f/u vis it, so clinical 340 progress assesses by [place] [phone] phone.) [phone] Social History Tobacco Use Types Packs/Day Years Used Date Never Smoker Smokeless Tobacco: Never Used Alcohol Use Standard Drinks/Week Comments No 0 (1 standard drink = 0.6 oz pure alcoho l) Sex Assigned at Date Recorded Male 01/07/2021 5:29 PM CDT documented as of this encounter Miscellaneous Notes Telephone Encounter - Melissa Maldonado RN - 12/05/2013 2:50 PM CDT Pt is approx 2 months S/P spermatic vein embolization procedure to treat varicocele with Associate testicular pain, pressure & left testicular enlargement. Pt reports that he has had significant clinical improvement, & that he feels better. He states he has our clinic phone number & will call us as needed if any recurrent symptoms. Melissa [place] RN Telephone Encounter - Meredith Henson - 12/04/2013 10:10 AM CDT Patient called here today and left voice mail in response to my follow-up letters that I have recently sent. Patient states that he feels no need to follow-up post-procedure and he is hereby declining. Meredith Henson Carousel Operator documented in this encounter Plan of Treatment Not on filedocumented as of this encounter Visit Diagnoses Not on filedocumented in this encounter Care Teams Tax Associate Attorney Relationship Specialty Start Date End Date Adrian Mills MD PCP - General Family Practice 10/29/12 documented as of this encounter
--- OUTSIDE RECORDS SUMMARY | 2022-06-18 15:56 | XMS_ITS | Encounter Summary ---
:1965 Author Organization [place] Address [address] [facility] [place] [address] Care Team Providers Name Role Phone Adrian Mills MD Primary Care Provider Reason for Visit Reason Comments URI Health Maintenance phq 9 Encounter Details Date Type Department Care Team Description 08/03/2016 Office Visit [facility] Adrian Mills [facility] res piratory Clinic [place] [address] [address] [address] [facility] [address] [place] [address] (Primary Dx) [place], [place] [phone] (Wo rk) [address] [phone] Social History Tobacco Use Types Packs/Day Years Used Date Never Smoker Smokeless Tobacco: Never Used Alcohol Use Standard Drinks/Week Comments No 0 (1 standard drink = 0.6 oz pure alcoho l) Sex Assigned at Date Recorded Male 01/07/2021 5:29 PM CDT documented as of this encounter Last Filed Vital Signs Vital Sign Reading Time Taken Comments Blood Pressure 112/84 08/03/2016 10:49 AM CREDIT UNION TELLER Pulse 84 08/03/2016 10:49 AM CREDIT UNION TELLER Temperature 36.4 ??C (97.6 ??F) 08/03/2016 10:49 AM CREDIT UNION TELLER Respiratory Rate 16 08/03/2016 10:49 AM CREDIT UNION TELLER Oxygen Saturation 97% 08/03/2016 10:49 AM CREDIT UNION TELLER Inhaled Oxygen Concentration - - Weight 88.9 kg (196 lb) 08/03/2016 10:49 AM CREDIT UNION TELLER Height 172.7 cm (5' 8) 08/03/2016 10:49 AM CREDIT UNION TELLER Body Mass Index 29.8 08/03/2016 10:49 AM CREDIT UNION TELLER documented in this encounter Progress Notes Adrian Mills MD - 08/03/2016 7:33 AM CST HPI SUBJECTIVE: Adam Campbell is a 51 year old male who presents to clinic today for the following health issues: RESPIRATORY SYMPTOMS ?? Duration: bronchitis dx about a month ago, symptoms have not ever fully resided since ?? Description nasal congestion, rhinorrhea, facial pain/pressure, cough and hoarse voice ?? Severity: moderate to severe ?? Accompanying signs and symptoms: None ?? History (predisposing factors): none ?? Precipitating or alleviating factors: None ?? Therapies tried and outcome: none Still had slight cough and wheeze from previous bronchitis. Current symptoms started two days ago. Cough is productive. Nyquil, Dayquil - somewhat helpful. No flu shot this year. No regular daily meds. Noting some odd movement issues. 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 Has been pretty stable. Did have neruo work up, thought to have mild essential tremor. Review of Systems Constitutional: Positive for malaise/fatigue. Negative for fever. HENT: Positive for congestion and sore throat. Negative for ear pain. Respiratory: Positive for cough and sputum production. Negative for shortness of breath and wheezing. Gastrointestinal: Negative. Neurological: Positive for headaches. Physical Exam Constitutional: He is well-developed, well-nourished, and in no distress. No distress. HENT: Right Ear: Tympanic membrane, external ear and ear canal normal. Left Ear: Tympanic membrane, external ear and ear canal normal. Mouth/Throat: Oropharynx is clear and moist. No oropharyngeal exudate. Eyes: Conjunctivae are normal. Neck: Neck supple. Cardiovascular: Normal rate, regular rhythm and normal heart sounds. Pulmonary/Chest: Effort normal and breath sounds normal. Lymphadenopathy: He has no cervical adenopathy. Skin: Skin is warm and dry. No rash noted. Nursing note and vitals reviewed. (J06.9) Upper respiratory tract infection, unspecified type (primary encounter diagnosis) Comment: has had recent illness, has MS and is on immunomodulators. Will give printed rx for use in 4-5 days prn Plan: amoxicillin (AMOXIL) 500 MG capsule RTC in 1-2w Adrian Mills MD IT UNION TELLER documented in this encounter Nursing Notes Vicki Hopson CMA - 08/03/2016 10:51 AM CST Chief Complaint Patient presents with ??? URI ??? Health Maintenance phq 9 Initial BP 112/84 mmHg Pulse 84 Temp(Src) 97.6 ??F (36.4 ??C) (Oral) Resp 16 Ht 5' 8 (1.727m) Wt 196 lb (88.905 kg) BMI 29.81 kg/m2 SpO2 97% Estimated body mass index is 29.81 kg/(m^2) as calculated from the following: Height as of this encounter: 5' 8 (1.727 m). Weight as of this encounter: 196 lb (88.905 kg). BP completed using cuff size: large Vicki Hopson CMA IT UNION TELLER documented in this encounter Plan of Treatment Not on filedocumented as of this encounter Visit Diagnoses Diagnosis Upper respiratory tract infection, unspe cified type - Primary documented in this encounter Care Teams Medical Charge Entry Specialist Relationship Specialty Start Date End Date Adrian Mills MD PCP - General Family Practice 10/29/12 documented as of this encounter
--- OUTSIDE RECORDS SUMMARY | 2022-06-18 15:56 | XMS_ITS | Encounter Summary ---
:1965 Author Organization [facility] Address [facility] [place] [address] Care Team Providers Name Role Phone Adrian Mills MD Primary Care Provider [phone] Reason for Visit Reason Comments Respiratory Problems Chest congestion. Ear Problem left ear pain Headache Encounter Details Date Type Department Care Team Description 11/03/2014 Office Visit [facility] Caleb Walsh (u pper respiratory infection) (Primary Dx); Clinic [place] TYRONE [place] C[place] [address] [facility], [address] [place] [address] [place], [place] [phone] (Wo rk) [address] [phone] Social History Tobacco Use Types Packs/Day Years Used Date Never Smoker Smokeless Tobacco: Never Used Alcohol Use Standard Drinks/Week Comments No 0 (1 standard drink = 0.6 oz pure alcoho l) Sex Assigned at Date Recorded Male 01/07/2021 5:29 PM CDT documented as of this encounter Last Filed Vital Signs Vital Sign Reading Time Taken Comments Blood Pressure 114/78 11/03/2014 4:31 PM IMPLANT POLISHER Pulse 76 11/03/2014 4:31 PM IMPLANT POLISHER Temperature 36.6 ??C (97.9 ??F) 11/03/2014 4:31 PM IMPLANT POLISHER Respiratory Rate 20 11/03/2014 4:31 PM IMPLANT POLISHER Oxygen Saturation - - Inhaled Oxygen Concentration - - Weight 88.9 kg (196 lb) 11/03/2014 4:31 PM IMPLANT POLISHER Height 172.7 cm (5' 8) 11/03/2014 4:31 PM IMPLANT POLISHER Body Mass Index 29.8 11/03/2014 4:31 PM IMPLANT POLISHER documented in this encounter Patient Instructions Patient InstructionsPeCaleb elise PA-C - 11/03/2014 4:47 PM IMPLANT POLISHER Mucinex D- generic ANT POLISHER documented in this encounter Progress Notes Caleb Walsh PA-C - 11/03/2014 2:43 PM CST HPI SUBJECTIVE: Adam Campbell is a 49 year old male who presents to clinic today for the following health issues: RESPIRATORY SYMPTOMS ?? Duration: over 2 weeks ?? Description nasal congestion, rhinorrhea, cough, wheezing, fever, ear pain bilateral, headache, fatigue/malaise,hoarse voice, nausea and stomach ache ?? Severity: moderate ?? Accompanying signs and symptoms: None ?? History (predisposing factors): none ?? Precipitating or alleviating factors: None ?? Therapies tried and outcome: none Getting migraines from the coughing. Up at night. Was using OTC cough/cold medications at first but they were not working so stopped. Problem list and histories reviewed & adjusted, as indicated. Additional history: as documented Problem list, Medication list, Allergies, and Medical/Social/Surgical histories reviewed in [facility] andupdated as appropriate. ROS: Constitutional, HEENT, cardiovascular, pulmonary, gi and gu systems are negative, except as otherwise noted. OBJECTIVE: BP 114/78 Pulse 76 Temp(Src) 97.9 ??F (36.6 ??C) (Oral) Resp 20 Ht 5' 8 (1.727 m) Wt 196 lb (88.905 kg) BMI 29.81 kg/m2 Body mass index is 29.81 kg/(m^2). GENERAL: healthy, alert and no distress HENT: ear canals and TM's normal, nose and mouth without ulcers or lesions NECK: no adenopathy, no asymmetry, masses, or scars and thyroid normal to palpation RESP: lungs clear to auscultation - no rales, rhonchi or wheezes CV: regular rate and rhythm, normal S1 S2, no S3 or S4, no murmur, click or rub, no peripheral edemaand peripheral pulses strong MS: no gross musculoskeletal defects noted, no edema SKIN: no suspicious lesions or rashes PSYCH: mentation appears normal, affect normal/bright LYMPH: no cervical, supraclavicular, axillary, or inguinal adenopathy Diagnostic Test Results: none ASSESSMENT/PLAN: Problem List Items Addressed This Visit None Visit Diagnoses URI (upper respiratory infection) - Primary Cough Relevant Medications Robitussin AC 200-20 q4h prn cough [id number] guaifenesin w/CODEINE cheratussin guiatuss halotussin gani-tuss benzonatate (TESSALON) capsule azithromycin (ZITHROMAX) tablet Recommended supportive cares including warm salt water gargles, Tylenol/Ibuprofen as directed OTC, rest, humidifier. Follow-up in 3-5 days if symptoms are worsening or not improving as expected/discussed. Caleb Walsh PA-C [facility] Physical Exam ANT POLISHER documented in this encounter Nursing Notes Nohemi Ngo MA - 11/03/2014 4:35 PM CST Chief Complaint Patient presents with ??? Respiratory Problems Chest congestion. ??? Ear Problem left ear pain ??? Headache Initial BP 114/78 Pulse 76 Temp(Src) 97.9 ??F (36.6 ??C) (Oral) Resp 20 Ht 5' 8 (1.727 m) Wt 196 lb (88.905 kg) BMI 29.81 kg/m2 Estimated body mass index is 29.81 kg/(m^2) as calculated from the following: Height as of this encounter: 5' 8 (1.727 m). Weight as of this encounter: 196 lb (88.905 kg). BP completed using cuff size: regular Nohemi Ngo MA ANT POLISHER documented in this encounter Plan of Treatment Not on filedocumented as of this encounter Visit Diagnoses Diagnosis URI (upper respiratory infection) - Prim stella Acute upper respiratory infections of un specified site Cough documented in this encounter Care Teams Batch Plant Operator Relationship Specialty Start Date End Date Adrian Mills MD PCP - General Family Practice 10/29/12 documented as of this encounter
--- OUTSIDE RECORDS SUMMARY | 2022-06-18 15:56 | XMS_ITS | Encounter Summary ---
:1965 Author Organization [place] Address [facility] [place] [address] Care Team Providers Name Role Phone Adrian Mills MD Primary Care Provider [phone] Adrian Mills MD Unavailable Adrian Mills MD Unavailable Adrian Mills MD Unavailable Reason for Visit Reason Onset Date Comments Outreach 12/02/2016 phs att 1 Outreach 02/23/2017 phs att 2 Encounter Details Date Type Department Care Team Description 12/02/2016 Telephone [facility] Adrian Mills Outreach (phs att 1); Clinic Cassidy Waller MD Outreach (phs att 2) [address] [place] [address] [place], [place] [phone] (Wo rk) [address] [phone] Social History Tobacco Use Types Packs/Day Years Used Date Never Smoker Smokeless Tobacco: Never Used Alcohol Use Standard Drinks/Week Comments No 0 (1 standard drink = 0.6 oz pure alcoho l) Sex Assigned at Date Recorded Male 01/07/2021 5:29 PM CDT documented as of this encounter Miscellaneous Notes Telephone Encounter - Rachel Perez - 02/23/2017 5:11 PM CDT 02/23/2017 Call Regarding Preventive Health Screening Colonoscopy Attempt 2 Message on voicemail Comments: Outreach Miller Helper NI Telephone Encounter - Melissa Sow - 12/02/2016 6:13 PM CDT Call Regarding Preventive Health Screening Colonoscopy Attempt 1 Message on voicemail Comments: Outreach Miller Helper Melissa Sow documented in this encounter Plan of Treatment Not on filedocumented as of this encounter Visit Diagnoses Not on filedocumented in this encounter Care Teams Can Sterilizer Relationship Specialty Start Date End Date Adrian Mills MD PCP - General Family Practice 10/29/12 Adrian Mills MD PCP - Assigned PCP 08/07/16 11/13/18 [id number] [id number] Adrian Mills MD Assigned PCP 08/07/16 08/29/20 [id number] [id number] Adrian Mills MD Assigned PCP 08/30/20 [id number] [id number] documented as of this encounter
--- OUTSIDE RECORDS SUMMARY | 2022-06-18 15:56 | XMS_ITS | Encounter Summary ---
:1965 Author Organization [place] Address [address] [place] [address] Care Team Providers Name Role Phone Adrian Mills MD Primary Care Provider [phone] Reason for Visit Auth/Cert - Closed Specialty Diagnoses / Procedures Referred By Contact Refer red To Contact Surgery Diagnoses Carpal tunnel, trigger finger right Rh Periop Services Procedures RELEASE CARPAL TUNNEL RELEASE TRIGGER FINGER [address] [place], [place] [address] Phone: Fax: Referral ID Status Reason Start Date Expiration Date Visits Requ ested Visits Authorized [id number] Closed 1 1 Encounter Details Date Type Department Care Team Description [facility]2014 [facility] [place] [facility] [place] [address] release, right ring and [address] small finger trigger [place], [place] [address] release [address] [phone] Surgery Details Date/Time Status Location OR Service Patient Case Case Traum a Class Class Type Case? 02/12/14 12:25 Posted OR OR Orthopedics Same Day PM Surgery Panel 1 Procedure LRB Anes Op Region Wound Class Commen ts Right carpal tunnel Right Local Wrist I-Clean Right carpal tunnel release, right ring and r elease, right ring and small finger trigger smal l finger trigger release release RELEASE, TRIGGER FINGER Right Local Finger I-Clean Surgeon Surgeon Role Service Panel Latanya Page MD Primary Orthopedics 1 Special Needs '8 # stated documented in this encounter Social History Tobacco Use Types Packs/Day Years [...] INSTRUCTIONS DRS. LATANYA PAGE AND ADAM JAVED [phone] DRESSING Keep dressing dry and in place [...] office tomorrow. For other urgent concerns, call [phone]. documented in this encounter Medications at Time [...] ANESTHESIA: Local anesthesia. SURGEON: Latanya Page MD VIOLIN RESTORER: Westley Dawkins PA-C TYPE OF ANESTHESIA: Local [...] compared to the ring finger. Once the [id number] was released, he was not able to [...] PAGE MD MT: [id number] Name: ADAM KAISER MRN: [id number] Account: [id number] : 1965 Procedure Date: 02/12/2014 Document: [id number] Brief Op Note - Latanya Page MD - 02/12/2014 1:06 PM CDT [facility] Orthopedics Brief Operative Note Pre-operative diagnosis: Carpal tunnel, trigger finger right Post-operative diagnosis right carpal tunnel syndrone, right trigger ring finger and right trigger litttle finger Procedure: Procedure(s): RELEASE CARPAL TUNNEL RELEASE TRIGGER FINGER, ring and little finger Surgeon: Latanya Page MD, MD Assistants(s): RAHEL Tse Anesthesia: Local Estimated blood [...] and right trigger litttle finger Special Needs # stated RELEASE, CARPAL TUNNEL 02/12/2014 12:31 PM CDT right c arpal tunnel syndrone, right trigger ring finger an d right trigger litttle finger Special Needs # stated documented in this encounter Visit Diagnoses Not on filedocumented in this encounter Administered Medications Inactive Administered [...] exceed 4 grams, Post-procedure lidocaine (PF) (XYLOCAINE) Given 02/12/2014 1:20 PM 20 mLs Operative Site/Surgical 1 % injection CDT Site PRN, Starting on Mon02/12/14 at 1320, Intra-procedure pregabalin (LYRICA) capsule 50 mg Given 02/12/2014 11:11 AM CDT 50 mg 50 mg, Oral, PRE-OP/PRE-PROCEDURE, Starting on Mon02/12/14 at 1105, Pre-procedure documented in this encounter Active and Recently Administered Medications Times are shown in CDT. Scheduled Medication Order 02/10/2014 02/11/2014 02/12/2014 celecoxib (celeBREX) capsule 400 mg (COMPLETED) 1111 (Given - Provider: Mandi Thurston RN) 400 mg, Oral, PRE-OP/PRE-PROCEDURE, Star ting on Mon02/12/14 at 1105, For 1 dose, Pre-procedure pregabalin (LYRICA) capsule 50 mg (CANCELED) 1111 (Given - Provider: Mandi Thurston RN) 50 mg, Oral, PRE-OP/PRE-PROCEDURE, Starting Mon02/12/14 at 1105, Pre-procedure PRN Medication Order 02/10/2014 02/11/2014 02/12/2014 HYDROcodone-acetaminophen (NORCO) 5-325 MG per tablet 1-2 tablet (COMPLETED) 1415 (Given - Provider: Mariela Covington RN) 1-2 tablet, Oral, ONCE PRN, moderate to severe pain, Starting Mon02/12/14 at 1325, For 1 dose, One time prior to discharge. Maximum acetaminophen dose from all sources= 75 mg/kg/day not to exceed 4 grams, Post-procedure lidocaine (PF) (XYLOCAINE) 1 % injection (CANCELED) 1320 (Given - Provider: Latanya Page MD) PRN, Starting 02/12/14 at 1320, Intra-procedure documented in this encounter Care Teams Locomotive Switch Operator Relationship Specialty Start Date End Date Adrian Mills MD PCP - General Family Practice 10/29/12 documented as of this encounter
--- OUTSIDE RECORDS SUMMARY | 2022-06-18 15:56 | XMS_ITS | Encounter Summary ---
:1965 Author Organization [place] Address [address] [place] [address] Care Team Providers Name Role Phone Adrian Mills MD Primary Care Provider [phone] Reason for Visit Reason Onset Date Comments Schedule Surgery 01/10/2014 Encounter Details Date Type Department Care Team Description 01/10/2014 Telephone [facility] Gar[facility] MD Schedule Surgery Orthopedic Care [address] [facility] [address] [place] [address] [place] [address] [phone] Social History Tobacco Use Types Packs/Day Years Used Date Never Smoker Smokeless Tobacco: Never Used Alcohol Use Standard Drinks/Week Comments No 0 (1 standard drink = 0.6 oz pure alcoho l) Sex Assigned at Date Recorded Male 01/07/2021 5:29 PM CDT documented as of this encounter Miscellaneous Notes Telephone Encounter - Kaitlyn Conner - 01/10/2014 3:22 PM CDT Scheduled a right carpal tunnel release and right hand ring and small finger trigger releases 02/12/14with Dr Garza @ [facility] documented in this encounter Plan of Treatment Not on filedocumented as of this encounter Visit Diagnoses Not on filedocumented in this encounter Care Teams Soil Checker Relationship Specialty Start Date End Date Adrian Mills MD PCP - General Family Practice 10/29/12 documented as of this encounter
--- OUTSIDE RECORDS SUMMARY | 2022-06-18 15:56 | XMS_ITS | Encounter Summary ---
:1965 Author Organization [place] Address [address] [facility] [place] [address] Care Team Providers Name Role Phone Adrian Mills MD Primary Care Provider [phone] Reason for Visit Reason Onset Date Comments Sinus Problem 08/02/2016 recurrent Encounter Details Date Type Department Care Team Description 08/02/2016 Telephone [facility] Adrian Mills Sinus Pro blem Clinic Cassidy Waller MD (recurrent) [id number] [place] [address] [address] [place] [address] [place], [place] [phone] (Wo rk) [address] [phone] Social History Tobacco Use Types Packs/Day Years Used Date Never Smoker Smokeless Tobacco: Never Used Alcohol Use Standard Drinks/Week Comments No 0 (1 standard drink = 0.6 oz pure alcoho l) Sex Assigned at Date Recorded Male 01/07/2021 5:29 PM CDT documented as of this encounter Miscellaneous Notes Telephone Encounter - Yarely Morel RN - 08/02/2016 5:33 PM CST Patient notified. Advised needs to be seen. Appointment scheduled with Dr. Mills tomorrow. Yarely Morel RN PRODUCT MARKETING Telephone Encounter - Cintia De La Torre APRN CNP - 08/02/2016 2:44 PM VP PRODUCT MARKETING I saw the patient on 06/30/2016 for bronchitis, but did not prescribe antibiotics to him. He was given cough medication and an inhaler. Sinus symptoms for one day do not require antibiotics. He likely has a virus and can certainly use OTC products for symptom control. He can take Sudafed for congestion/sinus pressure. Cintia De La Torre CNP PRODUCT MARKETING Telephone Encounter - Shaniqua Harris - 08/02/2016 1:27 PM CST Patient leaving for work and questioning when he will get a call back. Please advise Shaniqua Harris Dispatcher Refinery PRODUCT MARKETING Telephone Encounter - Noy Macdonald RN - 08/02/2016 10:11 AM VP PRODUCT MARKETING Patient calls requesting additional course of abx. States his may have passed it back unto him as he woke up this morning with a stuffy nose (congestion), sinus pressure, and slight cough. Advised to try OTC. Patient states was seen yesterday and currently on abx. Wondering if another course of abx would benefit at the same time. Please advise and inform pt. Noy Macdonald RN, BSN, PHN PRODUCT MARKETING documented in this encounter Plan of Treatment Not on filedocumented as of this encounter Visit Diagnoses Not on filedocumented in this encounter Care Teams Gunstock Spray Unit Feeder Relationship Specialty Start Date End Date Adrian Mills MD PCP - General Family Practice 10/29/12 documented as of this encounter
--- OUTSIDE RECORDS SUMMARY | 2022-06-18 15:56 | XMS_ITS | Encounter Summary ---
:1965 Author Organization [place] Address [address] [facility] [place] [address] Care Team Providers Name Role Phone Adrian Mills MD Primary Care Provider [phone] Reason for Referral Consultation - Closed Specialty Diagnoses / Procedures Referred By Contact Refer red To Contact Orthopedics Diagnoses Trigger finger (acquired) Adrian Mills [facility] [id number] [place] [address] [address] [place] [address] Phone: [phone] Fax: [phone] Referral ID Status Reason Start Date Expiration Date Visits Requ ested Visits Authorized [id number] Closed 01/06/2014 07/05/2014 1 1 Reason for Visit Reason Comments Pharyngitis Musculoskeletal Problem trigger finger Encounter Details Date Type Department Care Team Description 01/06/2014 [facility] (Primary Dx); Clinic Cassidy Waller MD URI (upper respiratory infection) [id number] [place] [id number] [place] [address], [address] [place] [address] [place], [place] [phone] (Wo rk) [address] [phone] Social History Tobacco Use Types Packs/Day Years Used Date Never Smoker Smokeless Tobacco: Never Used Alcohol Use Standard Drinks/Week Comments No 0 (1 standard drink = 0.6 oz pure alcoho l) Sex Assigned at Date Recorded Male 01/07/2021 5:29 PM CDT documented as of this encounter Last Filed Vital Signs Vital Sign Reading Time Taken Comments Blood Pressure 102/70 01/06/2014 8:31 AM CDT Pulse 75 01/06/2014 8:31 AM CDT Temperature 36.4 ??C (97.6 ??F) 01/06/2014 8:31 AM CDT Respiratory Rate 14 01/06/2014 8:31 AM CDT Oxygen Saturation - - Inhaled Oxygen Concentration - - Weight 88 kg (194 lb) 01/06/2014 8:31 AM CDT Height 180.3 cm (5' 11) 01/06/2014 8:31 AM CDT Body Mass Index 27.06 01/06/2014 8:31 AM CDT documented in this encounter Progress Notes Adrian Mills MD - 01/06/2014 7:41 AM CDT HPI SUBJECTIVE: Adam Campbell is a 48 year old male who presents to clinic today for the following health issues: Acute Illness Acute illness concerns?- dry throat feels like he can't get enough water and fingers on right hand stiff and click Onset: x 1 week for throat ?? Fever: no ?? Chills/Sweats: no ?? Headache (location?): YES- during the week better now ?? Sinus Pressure:no ?? Conjunctivitis: no ?? Ear Pain: no ?? Rhinorrhea: no ?? Congestion: no ?? Sore Throat: YES ?? Cough: no ?? Wheeze: no ?? Decreased Appetite: no ?? Nausea: no ?? Vomiting: no ?? Diarrhea: no ?? Dysuria/Freq.: no ?? Fatigue/Achiness: no ?? Sick/Strep Exposure: no Therapies Tried and outcome: increase fluid intake and otc cold medicine, working in basement with mold R hand 4th and 5th finger will lock closed, ezekiel in the morning. STarted about 1 months ago. Can be painful, but will loosen up fairly quickly and be much less bothersome the rest of the day. Can reoccur with rest. No brissa weakness. No injury, change in activity level. No interventions tried, ibuprofen doesn't seem to help. Also concerned about a sore throat for about the last week. Started after mold exposure when cleaning boxes from basement. [place] warm/feverish last week. No congestion, minor cough. No n/v abd pain. Review of Systems Constitutional: Negative for fever, chills and malaise/fatigue. HENT: Positive for sore throat. Negative for nosebleeds. Respiratory: Negative for cough. Cardiovascular: Negative. Gastrointestinal: Negative for nausea, vomiting, abdominal pain and diarrhea. Musculoskeletal: Positive for joint pain. Physical Exam Constitutional: He is oriented to person, place, and time and well-developed, well-nourished, and inno distress. No distress. HENT: Right Ear: Tympanic membrane, external ear and ear canal normal. Left Ear: Tympanic membrane, external ear and ear canal normal. Mouth/Throat: Oropharynx is clear and moist. No oropharyngeal exudate. Eyes: Conjunctivae and EOM are normal. Neck: Neck supple. Cardiovascular: Normal rate, regular rhythm and normal heart sounds. Pulmonary/Chest: Effort normal and breath sounds normal. Musculoskeletal: He exhibits no edema. Right hand: Normal. He exhibits normal range of motion, no tenderness, no bony tenderness, no deformity and no swelling. Normal strength noted. Lymphadenopathy: He has no cervical adenopathy. Neurological: He is alert and oriented to person, place, and time. Skin: Skin is warm and dry. No rash noted. Nursing note and vitals reviewed. (727.03) Trigger finger (acquired) (primary encounter diagnosis) Comment: Plan: ORTHO PATIENT ASSESSMENT COORDINATOR REFERRAL (465.9) URI (upper respiratory infection) Comment: Plan: supportive cares RTC in 1-2w prn Adrian Mills MD documented in this encounter Plan of Treatment Not on filedocumented as of this encounter Visit Diagnoses Diagnosis Trigger finger (acquired) - Primary URI (upper respiratory infection) Acute upper respiratory infections of un specified site documented in this encounter Care Teams Piece Jobber Relationship Specialty Start Date End Date Adrian Mills MD PCP - General Family Practice 10/29/12 documented as of this encounter
--- OUTSIDE RECORDS SUMMARY | 2022-06-18 15:56 | XMS_ITS | Encounter Summary ---
:1965 Author Organization [place] Address [address] [facility] [place] [address] Care Team Providers Name Role Phone Adrian Mills MD Primary Care Provider [phone] Reason for Visit Reason Comments URI phq9 Encounter Details Date Type Department Care Team Description 06/30/2016 Office Visit [facility] Cintia De La Torre Acute b ronchitis due Clinic [place] JumanaGUERO SKIDDER to other specified [address] organisms ([facility], [address] [place] [address] Dx) [place], [place] [phone] (Wo rk) [address] [phone] Social History Tobacco Use Types Packs/Day Years Used Date Never Smoker Smokeless Tobacco: Never Used Alcohol Use Standard Drinks/Week Comments No 0 (1 standard drink = 0.6 oz pure alcoho l) Sex Assigned at Date Recorded Male 01/07/2021 5:29 PM CDT documented as of this encounter Last Filed Vital Signs Vital Sign Reading Time Taken Comments Blood Pressure 129/87 06/30/2016 1:35 PM CDT Pulse 104 06/30/2016 1:35 PM CDT Temperature 36.4 ??C (97.5 ??F) 06/30/2016 1:35 PM CDT Respiratory Rate 20 06/30/2016 1:35 PM CDT Oxygen Saturation 95% 06/30/2016 1:35 PM CDT Inhaled Oxygen Concentration - - Weight 90 kg (198 lb 6.4 oz) 06/30/2016 1:35 PM CDT Height 172.7 cm (5' 8) 06/30/2016 1:35 PM CDT Body Mass Index 30.17 06/30/2016 1:35 PM CDT documented in this encounter Patient Instructions Patient InstructionsWil Cintia DenneyGUERO SKIDDER - 06/30/2016 1:59 PM CDT Images from the original note were not included. Acute Bronchitis Your healthcare provider has told you that you have acute bronchitis. Bronchitis is infection or inflammation of the bronchial tubes (airways in the lungs). Normally, air moves easily in and out of theairways. Bronchitis narrows the airways, making it harder for air to flow in and out of the lungs. This causes symptoms such as shortness of breath, coughing, and wheezing. Bronchitis can be ???acute?? or ???chronic.?? Acute means the condition comes on quickly and goes away in a short time. Chronicmeans a condition lasts a long time and often comes back. Read on to learn more about acute bronchitis. What causes acute bronchitis? Acute bronchitis almost always starts as a viral respiratory infection, such as a cold or the flu. Certain factors make it more likely for a cold or flu to turn into bronchitis. These include being very young or very old or having a heart or lung problem. Cigarette smoking also makes bronchitis more likely. When bronchitis develops, the airways become swollen. The airways may also become infected with bacteria. This is known as a secondary infection. Diagnosing acute bronchitis Your healthcare provider will examine you and ask about your symptoms and health history. You may also have a sputum culture to test the fluid in your lungs. Chest X-rays may be done to look for infection in the lungs. Treating acute bronchitis Bronchitis usually clears up as the cold or flu goes away. You can help feel better faster by doing the following: ?? Take medicine as directed. You may be told to take ibuprofen or other muuz-cov-qhiebpj medicines.These help relieve inflammation in your bronchial tubes. Your doctor may prescribe an inhaler to help open up the bronchial tubes. Most of the time,??acute bronchitis??is caused by a viral infection. Antibiotics are usually not prescribed for viral infections. ?? Drink plenty of fluids, such as water, juice, or warm soup. Fluids loosen mucus so that you can cough it up. This helps you breathe more easily. Fluids also prevent dehydration. ?? Make sure you get plenty of rest. ?? Do not smoke. Do not allow anyone else to smoke in your home. Recovery and follow-up Follow up with your doctor as you are told. You will likely feel better in a week or two. But a dry cough can linger beyond that time. Let your doctor know if you still have symptoms (other than a dry cough) after 2 weeks. If you???re prone to getting bronchial infections, let your doctor know. And take steps to protect yourself from future infections. These steps include stopping smoking and avoiding tobacco smoke, washing your hands often, and getting a yearly flu shot. When to call the doctor Call the doctor if you have any of the following: ?? Fever of 100.4??F (38.0??C) higher ?? Symptoms that get worse, or new symptoms ?? Trouble breathing ?? Symptoms that don???t start to improve within a week, or within 3 days of taking antibiotics ?? [id number] [employer]. [address] [place] [address]. All rights reserved. This information is not intended as a substitute for professional medical care. Always follow your healthcare professional's instructions. documented in this encounter Progress Notes Cintia De La Torre APRN CNP - 06/30/2016 11:51 AM CDT SUBJECTIVE: Adam Campbell is a 51 year old male who presents to clinic today for the following health issues: RESPIRATORY SYMPTOMS ?? Duration: started 5 days ago ?? Description nasal congestion, cough, wheezing, fever, chills, fatigue/malaise and hoarse voice ?? Severity: moderate ?? Accompanying signs and symptoms: None ?? 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 ?? Precipitating or alleviating factors: None ?? Therapies tried and outcome: dayquil and nyquil, helps for a little bit. Productive cough; yellow thick sputum. Up every hour last night coughing. Throat scratchy; no ear pain. Denies SOB. Problem list and histories reviewed & adjusted, as indicated. Additional history: as documented No current outpatient prescriptions on file. No Known Allergies Problem list, Medication list, Allergies, and Medical/Social/Surgical histories reviewed in [facility] andupdated as appropriate. ROS: Constitutional, HEENT, cardiovascular, pulmonary, gi and gu systems are negative, except as otherwise noted. OBJECTIVE: BP 129/87 mmHg Pulse 104 Temp(Src) 97.5 ??F (36.4 ??C) (Oral) Resp 20 Ht 5' 8 (1.727 m) Wt 198 lb 6.4 oz (89.994 kg) BMI 30.17 kg/m2 SpO2 95% Body mass index is 30.17 kg/(m^2). GENERAL: healthy, alert and no distress EYES: Eyes grossly normal to inspection, PERRL and conjunctivae and sclerae normal HENT: ear canals and TM's normal, nose and mouth without ulcers or lesions, oropharynx inflammed NECK: no adenopathy, no asymmetry, masses, or scars and thyroid normal to palpation RESP: lungs clear to auscultation - no rales, rhonchi or wheezes CV: regular rate and rhythm, normal S1 S2, no S3 or S4, no murmur, click or rub NEURO: mentation intact and speech normal Diagnostic Test Results: none ASSESSMENT/PLAN: 1. Acute bronchitis due to other specified organisms Supportive cares; fluids, rest, Ibuprofen as needed. - albuterol (PROAIR HFA, PROVENTIL HFA, VENTOLIN HFA) 108 (90 BASE) MCG/ACT inhaler; Inhale 2 puffs into the lungs every 6 hours as needed for shortness of breath / dyspnea or wheezing Dispense: 1 Inhaler; Refill: 0 - guaiFENesin-codeine (ROBITUSSIN AC) 100-10 MG/5ML SOLN; Take 10 mLs by mouth every 4 hours as needed for cough Dispense: 120 mL; Refill: 0 RTC if no improvement or worsening symptoms Cintia De La Torre APRN CNP [facility] documented in this encounter Nursing Notes Nicole Gabriel - 06/30/2016 1:38 PM CDT Chief Complaint Patient presents with ??? URI phq9 Initial BP 129/87 mmHg Pulse 104 Temp(Src) 97.5 ??F (36.4 ??C) (Oral) Resp 20 Ht 5' 8 (1.727 m) Wt 198 lb 6.4 oz (89.994 kg) BMI 30.17 kg/m2 SpO2 95% Estimated body mass index is 30.17 kg/(m^2) as calculated from the following: Height as of this encounter: 5' 8 (1.727 m). Weight as of this encounter: 198 lb 6.4 oz (89.994 kg). BP completed using cuff size: regular Nicole Gabriel MA documented in this encounter Plan of Treatment Not on filedocumented as of this encounter Visit Diagnoses Diagnosis Acute bronchitis due to other specified organisms - Primary documented in this encounter Care Teams Energy Infrastructure Engineer Relationship Specialty Start Date End Date Adrian Mills MD PCP - General Family Practice 10/29/12 documented as of this encounter
--- OUTSIDE RECORDS SUMMARY | 2022-06-18 15:56 | XMS_ITS | Encounter Summary ---
:1965 Author Organization [place] Address [facility] [place] [address] Care Team Providers Name Role Phone Adrian Mills MD Primary Care Provider [phone] Reason for Visit Reason Comments Surgical Followup R CTR and Rt. Ring and small finger trig release, DOS 02/12/14, Dr. Garza Encounter Details Date Type Department Care Team Description 02/25/2014 Office Visit [facility] Timothy Dawkins [facility]- Orthopedic Care Rubia Bolden PA-C examination, [address] [facility] [address] unspecified surgery [address] [place] [address] (Primary Dx) [place], [place] [id number] [phone] Social History Tobacco Use Types Packs/Day Years Used Date Never Smoker Smokeless Tobacco: Never Used Alcohol Use Standard Drinks/Week Comments No 0 (1 standard drink = 0.6 oz pure alcoho l) Sex Assigned at Date Recorded Male 01/07/2021 5:29 PM CDT documented as of this encounter Patient Instructions Patient InstructionsTimothy Dawkins PA-C - 02/26/2014 7:18 PM CDT Gradually increase your activities as you can tolerated them, starting at a level well below what you would normally do. . You may increase the straightness of the little finger by pressing hand into the table or straightening the joint gently with the other hand. With time it may improve. Follow up as needed. documented in this encounter Progress Notes Timothy Dawkins PA-C - 02/26/2014 7:12 PM CDT HISTORY OF PRESENT ILLNESS: Adam Campbell is a 48 year old male who is seen in follow up for R CTR and Rt. Ring and small fingertrig release, DOS 02/12/14, Dr. Garza. Present symptoms: Patient reports improved CT symptoms and ROM in fingers. No triggering. Notes thatskin was too tight for him to tolerate so he removed sutures himself a couple days ago. Does not 5thpip joint does no fully extend. Nothing for pain management. Is using hand gently. 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 Denies Chest pain, Calve pain, Fever, Chills. Current Treatment: post op. PHYSICAL EXAM: There were no vitals taken for this visit. There is no weight on file to calculate BMI. GENERAL APPEARANCE: healthy, alert and no distress PSYCH: mentation appears normal and affect normal/bright MSK: Right: Hand . Incisions x 3 clean and dry, healing. No incisional erythema. No Hematoma.. Edema mild at hand and digits. CMS grossly intact. AROM note mild extension restriction at 5th PIP. ASSESSMENT: Adam Campbell is a 48 year old male S/P R CTR and Rt. Ring and small finger trig release, DOS 02/12/14, Dr. Garza. Improved. Joint restriction is common after trigger. Explained capsule/joint remodeling. PLAN: - Surgery discussed, images reviewed if applicable, and all questions were answered at this time. - Care instructions given and verbally acknowledged. - Physical Therapy: As directed at discharge/ Work on extension at PIP by pressing into table and extending with other hand. - RTW letter. Return to clinic PRN. Timothy Dawkins PA-C Dept. Orthopedic Surgery [facility] documented in this encounter Plan of Treatment Not on filedocumented as of this encounter Visit Diagnoses Diagnosis Follow-up examination, following unspeci fied surgery - Primary documented in this encounter Care Teams Sign Hanger Supervisor Relationship Specialty Start Date End Date Adrian Mills MD PCP - General Family Practice 10/29/12 documented as of this encounter
--- OUTSIDE RECORDS SUMMARY | 2022-06-18 15:56 | XMS_ITS | Encounter Summary ---
:1965 Author Organization [place] Address [address] [place] [address] Care Team Providers Name Role Phone Adrian Mills MD Primary Care Provider [phone] Adrian Mills MD Unavailable Adrian Mills MD Unavailable Reason for Visit Reason Onset Date Comments No Show 12/14/2016 Encounter Details Date Type Department Care Team Description 12/14/2016 Office Visit [facility] Adrian Mills NO SHOW ( Primary Dx) [place] [address] [address] [address] [facility], [address] [phone] (Wo rk) [address] [phone] Social History Tobacco Use Types Packs/Day Years Used Date Never Smoker Smokeless Tobacco: Never Used Alcohol Use Standard Drinks/Week Comments No 0 (1 standard drink = 0.6 oz pure alcoho l) Sex Assigned at Date Recorded Male 01/07/2021 5:29 PM CDT documented as of this encounter Progress Notes Nohemi Ngo MA - 12/14/2016 1:53 PM CDT This patient was a no show for this scheduled appointment. documented in this encounter Plan of Treatment Not on filedocumented as of this encounter Visit Diagnoses Diagnosis NO SHOW - Primary documented in this encounter Care Teams Parcel Post Weigher Relationship Specialty Start Date End Date Adrian Mills MD PCP - General Family Practice 10/29/12 Adrian Mills MD PCP - Assigned PCP 08/07/16 11/13/18 [id number] [address] [id number] Adrian Mills MD Assigned PCP 08/07/16 08/29/20 [id number] [address] [id number] documented as of this encounter
--- OUTSIDE RECORDS SUMMARY | 2022-06-18 15:56 | XMS_ITS | Encounter Summary ---
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 Encounter Details Date Type Department Care Team Description 01/09/2014 Office Visit [facility] Roldan Garza, Yamileth gger finger (acquired) (Primary Dx); [facility] Rubia WATTERS CTS (carpal tunnel syndrome), right [address] [place] [address] [address] [facility] [address] [place] [address] [phone] (Wo rk) Social History Tobacco Use Types Packs/Day Years Used Date Never Smoker Smokeless Tobacco: Never Used Alcohol Use Standard Drinks/Week Comments No 0 (1 standard drink = 0.6 oz pure alcoho l) Sex Assigned at Date Recorded Male 01/07/2021 5:29 PM CDT documented as of this encounter Last Filed Vital Signs Vital Sign Reading Time Taken Comments Blood Pressure 102/64 01/09/2014 8:59 AM CDT Pulse - - Temperature - - Respiratory Rate - - Oxygen Saturation - - Inhaled Oxygen Concentration - - Weight 88 kg (194 lb) 01/09/2014 8:59 AM CDT Height 180.3 cm (5' 11) 01/09/2014 8:59 AM CDT Body Mass Index 27.06 01/09/2014 8:59 AM CDT documented in this encounter Patient Instructions Patient InstructionsJayde Bolden, ATC - 01/09/2014 9:58 AM CDT *Follow up as needed or as discussed with your care provider *See Chart Note for specific details documented in this encounter Progress Notes Roldan Garza MD - 01/09/2014 9:00 AM CDT HISTORY OF PRESENT ILLNESS: Adam Campbell is a 48 year old male who is seen in consultation at the request of Dr. Mills for trigger finger, right 4th and 5th fingers. He has been noticing catching as well as locking especially in the morning. At times he has to literally pull the fingers with the other hand to get it extended period he has tried anti-inflammatory medication which has not been helpful. He has not been diagnosed with diabetes so far although it has been a while since he had that checked. He is right-hand dominant. 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 While he is bring up this issue of trigger fingers, he also reports paresthesia symptoms involving thumb index and long fingers of the same hand. This problem has been present for many years. He has been keeping the hand straight at night and that has improved the situation. However he has difficulty of morning with pressure more because of the vibration. Keeping the hands above the shoulder level has been difficult. He has been told that he has carpal tunnel syndrome. Present symptoms: Pt states triggers has been going on for over 6 weeks. Pt states triggering is worse in the mornings and the pinky is worse than the ring finger but they both seem to go together. Treatments tried to this point: OTC Medication: Ibuprofen (Advil) Orthopedic PMH: none Past Medical History Diagnosis Date ??? NO ACTIVE PROBLEMS Past Surgical History Procedure Laterality Date ??? Mastectomy subcutaneous male bilateral (gynecomastia) 2006 ??? Biopsy left breast bx 2009 Family History Problem Relation Age of Onset ??? Cancer Father throat cancer, step father ??? Cancer Maternal Grandmother ??? Connective Tissue Disorder Sister MS (half sister) History Social History ??? Marital Status: Spouse Name: N/A Number of Children: 2 ??? Years of Education: N/A Occupational History ??? [employer] Social History Main Topics ??? Smoking status: Never Smoker ??? Smokeless tobacco: Never Used ??? Alcohol Use: No ??? Drug Use: No ??? Sexually Active: Yes -- Female partner(s) Control/ Protection: Surgical Other Topics Concern ??? Not on file Social History Narrative Current Outpatient Prescriptions Medication Sig Dispense Refill ??? multivitamin, therapeutic (THERA-VIT) TABS Take 1 tablet by mouth daily ??? ranitidine (ZANTAC) 300 MG tablet Take 1 tablet by mouth At Bedtime. 30 tablet 1 No Known Allergies REVIEW OF SYSTEMS: CONSTITUTIONAL: NEGATIVE for fever, chills, change in weight INTEGUMENTARY/SKIN: NEGATIVE for worrisome rashes, moles or lesions EYES: NEGATIVE for vision changes or irritation ENT/MOUTH: NEGATIVE for ear, mouth and throat problems RESP: NEGATIVE for significant cough or SOB BREAST: NEGATIVE for masses, tenderness or discharge CV: NEGATIVE for chest pain, palpitations or peripheral edema GI: Reflux/heartburn : Negative MUSCULOSKELETAL: See HPI above NEURO: NEGATIVE for weakness, dizziness or paresthesias ENDOCRINE: NEGATIVE for temperature intolerance, skin/hair changes HEME/ALLERGY/IMMUNE: NEGATIVE for bleeding problems PSYCHIATRIC: NEGATIVE for changes in mood or affect PHYSICAL EXAM: BP 102/64 Ht 5' 11 (1.803 m) Wt 194 lb (87.998 kg) BMI 27.07 kg/m2 Body mass index is 27.07 kg/(m^2). GENERAL APPEARANCE: healthy, alert and no distress SKIN: no suspicious lesions or rashes NEURO: Normal strength and tone, mentation intact and speech normal VASCULAR: Good pulses, and capillary refill LYMPH: no lymphadenopathy PSYCH: mentation appears normal and affect normal/bright MSK: Gait is normal Neck is supple Neck range of motion is full Shoulder range of motion is full bilaterally Elbow range of motion is full bilaterally Finger movement is full in all digits bilaterally Light touch sensation is bilateral symmetrical throughout Tinel sign is negative at the wrist Phalen is negative Triggering is noted for the ring finger and little finger of the right hand A1 pulleys of the ulnar digits are tender on the right not on the left No focal atrophy of the thenar musculature is noted bilaterally No deformity of the fingers are noted Filament Coil Winder strength and pinch and strength are within normal limits bilaterally Skin is intact throughout ASSESSMENT: Right-hand trigger fingers involving the ring and little fingers Chronic right carpal tunnel syndrome PLAN: We had a long discussion with carpal tunnel syndrome as well as trigger finger phenomenon. Since it has been a while for him since his evaluation for diabetes, it would be worth while to get that checked out. Options of observation, cortisone injection and surgical intervention for trigger finger werethoroughly explained. We also talked about adding carpal tunnel release to the operation if he decided to opt for the surgical intervention. Knee surgeries can be done under local anesthesia. Nature ofthe surgery and potential complications were discussed. It was explained to him that final decision will be up to him. All the questions were answered. If he decided to go have the surgery most likely he will undergo combination of carpal tunnel release and trigger finger releases all at the same time. We talked about taking time off of about three weeks after the surgery because of the nature of hisjob. Imaging Interpretation: None taken today Roldan Garza MD Department of Orthopedic Surgery Disclaimer: This note consists of symbols derived from keyboarding, dictation and/or voice recognition software. As a result, there may be errors in the script that have gone undetected. Please consider this when interpreting information found in this chart. documented in this encounter Nursing Notes Jayde Bolden ATC - 01/09/2014 9:05 AM CDT Chief Complaint Patient presents with ??? Finger Right 4th and 5th fingers, trigger Initial BP 102/64 Ht 5' 11 (1.803 m) Wt 194 lb (87.998 kg) BMI 27.07 kg/m2 Estimated body mass index is 27.07 kg/(m^2) as calculated from the following: Height as of this encounter: 5' 11 (1.803 m). Weight as of this encounter: 194 lb (87.998 kg). BP completed using cuff size: large Jadye Bloden ATC documented in this encounter Plan of Treatment Not on filedocumented as of this encounter Visit Diagnoses Diagnosis Trigger finger (acquired) - Primary CTS (carpal tunnel syndrome), right documented in this encounter Care Teams Plate Stacker Relationship Specialty Start Date End Date Mills, Adrian Sridhar, MD PCP - General Family Practice 10/29/12 documented as of this encounter
--- OUTSIDE RECORDS SUMMARY | 2022-06-18 15:56 | XMS_ITS | Encounter Summary ---
:1965 Author Organization [facility] Address [facility] [place] [address] Care Team Providers Name Role Phone Adrian Mills MD Primary Care Provider [phone] Reason for Visit Reason Onset Date Comments Panel Management 02/09/2016 colonoscopy Encounter Details Date Type Department Care Team Description 02/09/2016 Telephone [facility] Adrian Mills Panel [facility] Cassidy Waller MD (colonoscopy) [address] [place] [address] [address] [place] [address] [place], [place] [phone] (Wo rk) [address] [phone] Social History Tobacco Use Types Packs/Day Years Used Date Never Smoker Smokeless Tobacco: Never Used Alcohol Use Standard Drinks/Week Comments No 0 (1 standard drink = 0.6 oz pure alcoho l) Sex Assigned at Date Recorded Male 01/07/2021 5:29 PM CDT documented as of this encounter Miscellaneous Notes Telephone Encounter - Nohemi Ngo MA - 02/09/2016 4:50 PM CDT Panel Management Review Patient has the following on his problem list: Depression / Dysthymia review PHQ-9 SCORE 12/04/2012 01/01/2013 Total Score 5 1 Patient is due for: PHQ9 and DAP Composite cancer screening Chart review shows that this patient is due/due soon for the following Colonoscopy and Fecal Colorectal (FIT) Summary: Patient is due/failing the following: COLONOSCOPY, DAP, FIT and PHQ9 Action needed: Patient needs to do PHQ9. and Patient needs non-fasting lab only appointment Type of outreach: Sent letter. Questions for provider review: None Nohemi Ngo MA Chart routed to Care Team . documented in this encounter Plan of Treatment Not on filedocumented as of this encounter Visit Diagnoses Diagnosis Adjustment disorder with mixed anxiety a nd depressed mood - Primary documented in this encounter Care Teams Laundry Tech Relationship Specialty Start Date End Date Adrian Mills MD PCP - General Family Practice 10/29/12 documented as of this encounter
--- OUTSIDE RECORDS SUMMARY | 2022-06-18 15:56 | XMS_ITS | Encounter Summary ---
:1965 Author Organization [facility] Address [address] [facility] [place] [address] Care Team Providers Name Role Phone Adrian Mills MD Primary Care Provider [phone] Reason for Referral Consultation - Closed Specialty Diagnoses / Procedures Referred By Contact Refer red To Contact Diagnoses Caleb Harvey [facility] [address] [facility] [address] [place] [address] [place] [address] Phone: Fax: Referral ID Status Reason Start Date Expiration Date Visits Requ ested Visits Authorized [id number] Closed 07/24/2015 07/23/2016 1 1 ATOR REPAIRER APPRENTICE Reason for Visit Reason Comments URI Encounter Details Date Type Department Care Team Description 07/24/2015 Office Visit [facility] Caleb Walsh Upper respiratory tract infection, unspecified upper respiratory infection (Primary Dx); Clinic Cassidy Wood PA-C Trem[place] [address] [address] [address] [facility], [address] [place] [address] [place], [place] [phone] (Wo rk) [address] [phone] Social History Tobacco Use Types Packs/Day Years Used Date Never Smoker Smokeless Tobacco: Never Used Alcohol Use Standard Drinks/Week Comments No 0 (1 standard drink = 0.6 oz pure alcoho l) Sex Assigned at Date Recorded Male 01/07/2021 5:29 PM CDT documented as of this encounter Last Filed Vital Signs Vital Sign Reading Time Taken Comments Blood Pressure 106/80 07/24/2015 11:04 AM ELEVATOR REPAIRER APPRENTICE Pulse 80 07/24/2015 11:04 AM ELEVATOR REPAIRER APPRENTICE Temperature 36.6 ??C (97.8 ??F) 07/24/2015 11:04 AM ELEVATOR REPAIRER APPRENTICE Respiratory Rate 20 07/24/2015 11:04 AM ELEVATOR REPAIRER APPRENTICE Oxygen Saturation 97% 07/24/2015 11:04 AM ELEVATOR REPAIRER APPRENTICE Inhaled Oxygen Concentration - - Weight 86.2 kg (190 lb) 07/24/2015 11:04 AM ELEVATOR REPAIRER APPRENTICE Height - - Body Mass Index 28.89 11/03/2014 4:31 PM ELEVATOR REPAIRER APPRENTICE documented in this encounter Progress Notes Caleb Walsh PA-C - 07/24/2015 10:55 AM CST HPI SUBJECTIVE: Adam Campbell is a 50 year old male who presents to clinic today for the following health issues: RESPIRATORY SYMPTOMS ?? Duration: couple weeks ?? Description nasal congestion, sore throat, facial pain/pressure, cough, wheezing, fever, headache, fatigue/malaise, hoarse voice and conjunctival irritation ?? Severity: mild ?? Accompanying signs and symptoms: body aches ?? History (predisposing factors): none ?? Precipitating or alleviating factors: None ?? Therapies tried and outcome: OTC cold meds Not in sinuses. No fever, no chest pain. Sleeping OK. Just ongoing for two weeks. Mentions also a tremor that he notices just when building model cars which is a big hobby for him. It is not present at rest. Just when he tries to make fine movements. Then has to back off to stop themovement. No other focal neurological symptoms noted. Problem list and histories reviewed & adjusted, as indicated. Additional history: as documented Problem list, Medication list, Allergies, and Medical/Social/Surgical histories reviewed in EPIC andupdated as appropriate. ROS: Constitutional, HEENT, cardiovascular, pulmonary, gi and gu systems are negative, except as otherwise noted. OBJECTIVE: BP 106/80 mmHg Pulse 80 Temp(Src) 97.8 ??F (36.6 ??C) (Oral) Resp 20 Wt 190 lb (86.183 kg) SpO2 97% Body mass index is 28.9 kg/(m^2). GENERAL APPEARANCE: healthy, alert and no distress HENT: ear canals and TM's normal and nose and mouth without ulcers or lesions RESP: lungs clear to auscultation - no rales, rhonchi or wheezes CV: regular rates and rhythm, normal S1 S2, no S3 or S4 and no murmur, click or rub LYMPHATICS: normal ant/post cervical and supraclavicular nodes MS: extremities normal- no gross deformities noted SKIN: no suspicious lesions or rashes NEURO: Normal strength and tone, mentation intact, speech normal, cranial nerves 2-12 intact and tremor - none noted today. PSYCH: mentation appears normal and affect normal/bright Diagnostic test results: none ASSESSMENT/PLAN: ICD-10-CM 1. Upper respiratory tract infection, unspecified upper respiratory infection J06.9 amoxicillin (AMOXIL) 500 MG capsule 2. Tremor R25.1 NEUROLOGY ADULT REFERRAL Follow up with Provider - Recommended supportive cares including warm salt water gargles, Tylenol/Ibuprofen as directed OTC, rest, humidifier. Follow-up in 3-5 days if symptoms are worsening or not improving as expected/discussed. To fill Rx only as needed for any additional or ongoing symptoms. Caleb Walsh PA-C [facility] Physical Exam ATOR REPAIRER APPRENTICE documented in this encounter Nursing Notes Nohemi Ngo MA - 07/24/2015 11:10 AM CST Chief Complaint Patient presents with ??? URI Initial BP 106/80 mmHg Pulse 80 Temp(Src) 97.8 ??F (36.6 ??C) (Oral) Resp 20 Wt 190 lb (86.183 kg) SpO2 97% Estimated body mass index is 28.9 kg/(m^2) as calculated from the following: Height as of 11/03/14: 5' 8 (1.727 m). Weight as of this encounter: 190 lb (86.183 kg). BP completed using cuff size: regular Nohemi Ngo MA ATOR REPAIRER APPRENTICE documented in this encounter Plan of Treatment Scheduled Referrals Name Type Priority Associated Diagnoses Order [facility] NEUROLOGY ADULT REFERRAL Referral Routine Tremor Ord ered: 07/24/2015 documented as of this encounter Visit Diagnoses Diagnosis Upper respiratory tract infection, unspe cified upper respiratory infection - Primary Tremor Abnormal involuntary movements documented in this encounter Care Teams Residential Framing Carpenter Relationship Specialty Start Date End Date Adrian Mills MD PCP - General Family Practice 10/29/12 documented as of this encounter
--- OUTSIDE RECORDS SUMMARY | 2022-06-18 15:56 | XMS_ITS | Encounter Summary ---
:1965 Author Organization [place] Address [address] [facility] [place] [address] Care Team Providers Name Role Phone Adrian Mills MD Primary Care Provider [phone] Reason for Visit Reason Comments Physical fasting Encounter Details Date Type Department Care Team Description 02/05/2014 Office Visit [facility] Adrian Mills Routine g eneral Clinic Cassidy Waller MD medical examination [address] [place] [address] at [facility], [address] [place] [address] facility (Primary Dx) [place], [place] [phone] (Wo rk) [address] [phone] Social History Tobacco Use Types Packs/Day Years Used Date Never Smoker Smokeless Tobacco: Never Used Alcohol Use Standard Drinks/Week Comments No 0 (1 standard drink = 0.6 oz pure alcoho l) Sex Assigned at Date Recorded Male 01/07/2021 5:29 PM CDT documented as of this encounter Last Filed Vital Signs Vital Sign Reading Time Taken Comments Blood Pressure 104/60 02/05/2014 7:24 AM CDT Pulse 73 02/05/2014 7:24 AM CDT Temperature 36.7 ??C (98.1 ??F) 02/05/2014 7:24 AM CDT Respiratory Rate 12 02/05/2014 7:24 AM CDT Oxygen Saturation - - Inhaled Oxygen Concentration - - Weight 84.4 kg (186 lb) 02/05/2014 7:24 AM CDT Height 180.3 cm (5' 11) 02/05/2014 7:24 AM CDT Body Mass Index 25.94 02/05/2014 7:24 AM CDT documented in this encounter Patient Instructions Patient InstructionsMaritza Noguera MA - 02/05/2014 6:54 AM CDT Preventive Health Recommendations Male Ages 40 to 49 Yearly exam: ?? See your health care provider every year in order to o Review health changes. o Discuss preventive care. o Review your medicines if your doctor has prescribed any. ??? You should be tested each year for STDs (sexually transmitted diseases) if you???re at risk. ??? Have a cholesterol test every 5 years. ??? Have a colonoscopy (test for colon cancer) if someone in your family has had colon cancer or polyps before age 50. ??? After age 45, have a diabetes test (fasting glucose). If you are at risk for diabetes, you should have this test every 3 years. ??? Talk with your health care provider about whether or not a prostate cancer screening test (PSA) is right for you. Shots: Get a flu shot each year. Get a tetanus shot every 10 years. Nutrition: ??? Eat at least 5 servings of fruits and vegetables daily. ??? Eat whole-grain bread, whole-wheat pasta and brown rice instead of white grains and rice. ??? For bone health: Eat calcium-rich foods or take calcium pills (500 to 600 mg) twice a day with food. Also take vitamin D (1000 IU) each day. Lifestyle ??? Exercise for at least 150 minutes a week (30 minutes a day, 5 days a week). This will help you control your weight and prevent disease. ??? Limit alcohol to one drink per day. ??? No smoking. ??? Wear sunscreen to prevent skin cancer. ??? See your dentist every six months for an exam and cleaning. documented in this encounter Progress Notes Adrian Mills MD - 02/05/2014 6:54 AM CDT SUBJECTIVE: CC: Adam Campbell is an 48 year old male who presents for preventative health visit. Healthy Habits: ?? Do you get at least three servings of calcium containing foods daily (dairy, green leafy vegetables, etc.)? yes and no, taking calcium and/or vitamin D supplement: yes - when he remembers ?? 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 Problems taking medications regularly No ?? Medication side effects: No ?? Have you had an eye exam in the past two years? yes ?? Do you see a dentist twice per year? no ?? Do you have sleep apnea, excessive snoring or daytime drowsiness?no Other concerns to address: Using Prilosec since Zantac not helping would like to discuss another med Today's PHQ-2 Score: Abuse: Current or Past(Physical, Sexual or Emotional)- No Do you feel safe in your environment - Yes History Substance Use Topics ??? Smoking status: Never Smoker ??? Smokeless tobacco: Never Used ??? Alcohol Use: No Standardized Alcohol Screening Questionnaire AUDIT Questions 0 1 2 3 4 Score 1. How often do you have a drink containing alcohol? Never Monthly or less 2 to 4 times a month 2 to 3 times a week 4 or more times a week 2. How many drinks containing alcohol do you have on a typical day when you are drinking? 1 or 2 3 or 4 5 or 6 7 to 9 10 or more 3. How often do you have more than five or more drinks on one occasion? Never Less than monthly Monthly Weekly Daily or almost daily 4. How often during the last year have you found that you were not able to stop drinking once you had started? Never Less than monthly Monthly Weekly Daily or almost daily 5. How often during the last year have you failed to do what was normally expected of you because of drinking? Never Less than monthly Monthly Weekly Daily or almost daily 6. How often during the last year have you needed a first drink in the morning to get yourself going after a heavy drinking session? Never Less than monthly Monthly Weekly Daily or almost daily 7. How often during the last year have you had a feeling of guilt or remorse after drinking? Never Less than monthly Monthly Weekly Daily or almost daily 8. How often during the last year have you been unable to remember what happened the night before because of your drinking? Never Less than monthly Monthly Weekly Daily or almost daily 9. Have you or someone else been injured because of your drinking? No Yes, but not in the last year Yes, during the last year 10. Has a relative, friend, doctor or other health care worker been concerned about your drinking orsuggested you cut down? No Yes, but not in the last year Yes, during the last year Total Scoring: A score of 7 for adult men is an indication of hazardous drinking (risk for physical or physiological harm); a score of 8 or more is an indication of an alcohol use disorder. A score of 5 or more for adult women is an indication of hazardous drinking or an alcohol use disorder. Last PSA: No results found for this basename: psa Recent Labs Lab Test 10/31/12 0904 CHOL 184 HDL 40 LDL 105 TRIG 194* CHOLHDLRATIO 4.6 Reviewed orders with patient. Reviewed health maintenance and updated orders accordingly - Yes All Histories reviewed and updated in [facility]. Has surgery in one week for trigger finger. Wondering about lab testing. ROS: Items negative except as noted below C: NEGATIVE for fever, chills, change in weight I: NEGATIVE for worrisome rashes, moles or lesions E: NEGATIVE for vision changes or irritation ENT: NEGATIVE for ear, mouth and throat problems R: NEGATIVE for significant cough or SOB CV: NEGATIVE for chest pain, palpitations or peripheral edema GI: NEGATIVE for nausea, abdominal pain, heartburn, or change in bowel habits male: negative for dysuria, hematuria, decreased urinary stream, erectile dysfunction, urethral discharge M: NEGATIVE for significant arthralgias or myalgia N: NEGATIVE for weakness, dizziness or paresthesias E: NEGATIVE for temperature intolerance, skin/hair changes Problem list, Medication list, Allergies, and Medical/Social/Surgical histories reviewed in [facility] andupdated as appropriate. OBJECTIVE: BP 104/60 Pulse 73 Temp(Src) 98.1 ??F (36.7 ??C) (Oral) Resp 12 Ht 5' 11 (1.803 m) Wt 186lb (84.369 kg) BMI 25.95 kg/m2 GENERAL APPEARANCE: healthy, alert and no distress EYES: Eyes grossly normal to inspection, PERRL and conjunctivae and sclerae normal HENT: ear canals and TM's normal, nose and mouth without ulcers or lesions, oropharynx clear and oral mucous membranes moist NECK: no adenopathy, no asymmetry, masses, or scars and thyroid normal to palpation RESP: lungs clear to auscultation - no rales, rhonchi or wheezes CV: regular rates and rhythm, normal S1 S2, no S3 or S4, no murmur, click or rub, no peripheral edema and peripheral pulses strong ABDOMEN: soft, nontender, no hepatosplenomegaly, no masses and bowel sounds normal MS: no musculoskeletal defects are noted and gait is age appropriate without ataxia SKIN: no suspicious lesions or rashes NEURO: Normal strength and tone, sensory exam grossly normal, mentation intact and speech normal PSYCH: mentation appears normal and affect normal/bright ASSESSMENT/PLAN: ICD-9-CM 1. Routine general medical examination at a health care facility V70.0 Lipid Profile with reflex to direct LDL Basic metabolic panel CBC with platelets Counseling Resources: ATP IV Guidelines FRAX Risk Assessment ICSI Preventive Guidelines Dietary Guidelines for Americans, 2010 [employer]'s My[employer]ate regular exercise vision screening reports that he has never smoked. He has never used smokeless tobacco. Estimated body mass index is 25.95 kg/(m^2) as calculated from the following: Height as of this encounter: 5' 11 (1.803 m). Weight as of this encounter: 186 lb (84.369 kg). Adrian Mills MD [facility] documented in this encounter Plan of Treatment Not on filedocumented as of this encounter Procedures Procedure Name Priority Date/Time Associated Diagnosis Comme nts LIPID REFLEX TO Routine 02/05/2014 7:43 AM Routine general Res ults for this DIRECT LDL PANEL CDT medical examination proc edure are in at a [facility] the results facility section. BASIC METABOLIC Routine 02/05/2014 7:43 AM Routine general Res ults for this PANEL CDT medical examination procedur e are in at a [facility] care the results facility section. CBC WITH PLATELETS Routine 02/05/2014 7:43 AM Routine general Results for this CDT medical examination procedur e are in at a [facility] care the results facility section. documented in this encounter Results CBC with platelets (02/05/2014 7:43 AM CDT) athologist Signature WBC 6.2 4.0 - 11.0 [place] 10e9/L [facility] RBC Count 5.25 4.4 - 5.9 [place] 10e12/L [facility] Hemoglobin 15.5 13.3 - [place] 17.7 g/dL [facility] Hematocrit 43.4 40.0 - [facility] 53.0 % [facility] MCV 83 78 - 100 [facility] fl [facility] MCH 29.5 26.5 - [facility] 33.0 pg [facility] MCHC 35.7 31.5 - [facility] 36.5 g/dL [facility] RDW 12.6 10.0 - [facility] 15.0 % [facility] Platelet Count 217 150 - 450 [facility] 10e9/L [facility] Specimen Anatomical Collection Method Collection Time Receive d Time (Source) Location / / Volume Laterality Blood specimen 02/05/2014 7:43 AM 014 7:48 (specimen) CDT AM CDT Adrian Mills MD LAB - BLOOD ORDERABLES Performing Organization Address City/State/ZIP Code Phon e Number [facility] [place] [address] Basic metabolic panel (02/05/2014 7:43 AM CDT) athologist Signature Sodium 143 133 - 144 [facility] mmol/L [facility] Potassium 4.2 3.4 - 5.3 [facility] mmol/L [facility] Chloride 103 94 - 109 [facility] mmol/L [facility] Carbon Dioxide 24 20 - 32 [facility] mmol/L [facility] Anion Gap 16 6 - 17 [facility] mmol/L [facility] Glucose 90 60 - 99 [facility] mg/dL [facility] Urea Nitrogen 18 5 - 24 [facility] mg/dL [facility] Creatinine 0.99 0.66 - [facility] 1.25 mg/dL [facility] GFR Estimate 80 >60 [facility] mL/min/1.[address] GFR Estimate If >90 >60 [facility] Black mL/min/1.[address] Calcium 9.5 8.5 - 10.4 [facility] mg/dL [facility] Specimen Anatomical Collection Method Collection Time Receive d Time (Source) Location / / Volume Laterality Blood specimen 02/05/2014 7:43 AM 014 7:48 (specimen) CDT AM CDT Adrian Mills MD LAB - BLOOD ORDERABLES Performing Organization Address City/State/ZIP Code Phon e Number [facility] [address] [place] [address] [place] [address] MY (ABNORMAL) Lipid Profile with reflex to direct LDL (02/05/2014 7:43 AM CDT) P athologist Signature Cholesterol 157 <200 mg/dL [facility] Comment: LDL Cholesterol is the primary guide to therapy. The NCEP recommends further evaluation of: patients with cholesterol greater than 200 mg/dL if additional risk facto rs are present, cholesterol greater than 240 mg/dL, triglycerides greater than 1 50 mg/dL, or HDL less than 40 mg/dL. Triglycerides 139 0 - 150 mg/dL [place] [facility] [place] HDL Cholesterol 36 (L) >40 mg/dL [place] [facility] [place] LDL Cholesterol Calculated 94 0 - 129 mg/dL [facility] Comment: LDL Cholesterol is the primary guide to therapy: LDL-cholesterol goal in high risk patients is <100 mg/dL and in very high risk patients is <70 mg/dL. VLDL-Cholesterol 28 0 - 30 mg/dL [place] Remy [facility] [place] Cholesterol/HDL Ratio 4.4 0.0 - 5.0 [facility] Specimen Anatomical Collection Method Collection Time Receive d Time (Source) Location / / Volume Laterality Blood specimen 02/05/2014 7:43 AM 014 7:48 (specimen) CDT AM CDT Adrian Mills MD LAB - BLOOD ORDERABLES Performing Organization Address City/State/ZIP Code Phon e Number [facility] [address] [place] [address] [place] [address] [place] documented in this encounter Visit Diagnoses Diagnosis Routine general medical examination at a health care facility - Primary documented in this encounter Care Teams Inventory Checker Relationship Specialty Start Date End Date Adrian Mills MD PCP - General Family Practice 10/29/12 documented as of this encounter
--- OUTSIDE RECORDS SUMMARY | 2022-06-18 15:56 | XMS_ITS | Encounter Summary ---
:1965 Author Organization [place] Address [facility] [place] [address] Care Team Providers Name Role Phone Adrian Mills MD Primary Care Provider [phone] Reason for Visit Reason Onset Date Comments Outreach 08/22/2015 phs att 1, declined Encounter Details Date Type Department Care Team Description 08/22/2015 Telephone [facility] Adrian Mills Outreach (phs att 1, Clinic Cassidy Waller MD declined ) [address] [facility], [address] [place] [address] [address] [place] [address] [place], [place] [phone] (Wo rk) [address] [phone] Social History Tobacco Use Types Packs/Day Years Used Date Never Smoker Smokeless Tobacco: Never Used Alcohol Use Standard Drinks/Week Comments No 0 (1 standard drink = 0.6 oz pure alcoho l) Sex Assigned at Date Recorded Male 01/07/2021 5:29 PM CDT documented as of this encounter Miscellaneous Notes Telephone Encounter - Trish Major - 08/27/2015 2:22 PM CST 08/27/2015 Call Regarding Preventive Health Screening Colonoscopy Attempt 2 Message Comments: patient declined to schedule, will call us back Outreach [employer] Collection Operator Trish Cota LE MAKER Telephone Encounter - Trish Major - 08/22/2015 10:50 AM CST 08/22/2015 Call Regarding Preventive Health Screening Colonoscopy Attempt 1 Message on voicemail Comments: Outreach Landfill [employer] Collection Operator Trish Cota LE MAKER documented in this encounter Plan of Treatment Not on filedocumented as of this encounter Visit Diagnoses Not on filedocumented in this encounter Care Teams Senior Net Application Developer Relationship Specialty Start Date End Date Adrian Mills MD PCP - General Family Practice 10/29/12 documented as of this encounter
--- OUTSIDE RECORDS SUMMARY | 2022-06-18 15:57 | XMS_ITS | Encounter Summary ---
:1965 Author Organization [place] Address [address] [place] [address] Care Team Providers Name Role Phone Adrian Mills MD Primary Care Provider [phone] Reason for Visit Reason Comments Consult SVE Encounter Details Date Type Department Care Team Description 09/30/2013 Office Visit [facility] John Murrell, Left v aricocele Vascular Clinic Luis Angel ragland MD (Primary Dx) [address] [place] [address] [phone] [address] [place] [address] Social History Tobacco Use Types Packs/Day Years Used Date Never Smoker Smokeless Tobacco: Never Used Alcohol Use Standard Drinks/Week Comments No 0 (1 standard drink = 0.6 oz pure alcoho l) Sex Assigned at Date Recorded Male 01/07/2021 5:29 PM CDT documented as of this encounter Last Filed Vital Signs Vital Sign Reading Time Taken Comments Blood Pressure 124/81 09/30/2013 3:17 PM BUTTON INSPECTOR right arm Pulse 76 09/30/2013 3:16 PM BUTTON INSPECTOR Temperature - - Respiratory Rate - - Oxygen Saturation - - Inhaled Oxygen Concentration - - Weight - - Height - - Body Mass Index - - documented in this encounter Progress Notes John Murrell MD - 09/30/2013 4:38 PM CST September 30, 2013 Maninder Laurent MD [facility] [address] [facility] [address] [place], [place] [address] RE: Adam Kaiser : 1965 Dear Shashi: Thank you for your kind referral of your patient, Adam Kaiser, who as you know 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 [facility] with a several-month history of leftscrotal discomfort. Upon further interrogation, he admits to symptoms of up to 1 year's duration. Hehas undergone previous ultrasound evaluation which was not tailored to exclude varicocele, but whichdid demonstrate a small echogenic focus in the left testicle. On your physical exam, he was felt to have a left grade 2 varicocele, likely accounting for his symptoms. The procedure, risks, benefits, and potential complications of left spermatic venography and varicocele embolization were explained to the patient in detail. He is anxious to proceed, and is scheduled for October 07. I will update you at the time of the procedure. Approximately 15 minutes were spent with this patient, of which greater than 50% was spent in counseling and coordination of his care. Thank you for allowing me to participate in your patient's care. If you have any questions please donot hesitate to contact me. JOHN MURRELL MD [place]: [facility] Name: ADAM KAISER Account: [id number] : 1965 Visit Date: 09/30/2013 Document: [id number] cc: ELIZABETH Laurent Jr, MD ON INSPECTOR Milagro Nelson - 09/30/2013 3:18 PM CST HPI ROS (Review of Systems): Positive for System Review. System Review has been done Physical Exam ON INSPECTOR documented in this encounter Nursing Notes 09/30/2013 4:00 PM CST >> Elizabeth Maldonado RN Mon Sep 30, 2013 4:17 PM Pt here for eval for SVE 3 mo hx of acute onset of left testicular pain. Antibiotics tried in Nov, no improvement so epidimytis was R/O. Previous testicular US done, but not with SVE eval protocol. Referred by Wm Anastasiia WATTERS who feels based on US & exam that pt has varicocele. Elizabeth BRADFORD RN >> MILAGRO NELSON Mon Sep 30, 2013 3:20 PM Face to face nursing time: 15 minutes. Milagro Nelson MA documented in this encounter Plan of Treatment Not on filedocumented as of this encounter Visit Diagnoses Diagnosis Left varicocele - Primary Scrotal varices documented in this encounter Care Teams Mechanical Unit Repairer Relationship Specialty Start Date End Date Adrian Mills MD PCP - General Family Practice 10/29/12 documented as of this encounter
--- OUTSIDE RECORDS SUMMARY | 2022-06-18 15:57 | XMS_ITS | Encounter Summary ---
:1965 Author Organization [place] Address [address] [place] [address] Care Team Providers Name Role Phone Adrian Mills MD Primary Care Provider [phone] Adrian Mills MD Unavailable Adrian Mills MD Unavailable Adrian Mills MD Unavailable Encounter Details Date Type Department Care Team Description 04/29/2013 [facility] Shirley Aragon LP Documentation Services [facility] [place] [phone] Social History Tobacco Use Types Packs/Day Years [...] on filedocumented in this encounter Care Teams Python Django Developer Relationship Specialty Start Date End Date Adrian Mills MD PCP - General Family Practice 10/29/12 Adrian Mills MD PCP - Assigned PCP 08/07/16 11/13/18 [address] [address] [facility] [place] [address] Adrian Mills MD Assigned PCP 08/07/16 08/29/20 [id number] [address] [id number] Adrian Mills MD Assigned PCP 08/30/20 [address] [address] [id number] documented as of this encounter
--- OUTSIDE RECORDS SUMMARY | 2022-06-18 15:57 | XMS_ITS | Encounter Summary ---
:1965 Author Organization [place] Address [address] [place] [address] Care Team Providers Name Role Phone Adrian Mills MD Primary Care Provider [phone] Adrian Mills MD Unavailable Adrian Mills MD Unavailable Adrian Mills MD Unavailable Encounter Details Date Type Department Care Team Description 01/01/2013 [facility] Shirley Aragon LP Documentation Services [facility] [place] [phone] Social History Tobacco Use [...] on filedocumented in this encounter Care Teams Garment Inspector Relationship Specialty Start Date End Date Adrian Mills MD PCP - General Family Practice 10/29/12 Adrian Mills MD PCP - Assigned PCP 08/07/16 11/13/18 [address] [address] [place] [address] Adrian Mills MD Assigned PCP 08/07/16 08/29/20 [address] [address] [address] Adrian Mills MD Assigned PCP 08/30/20 [address] [address] [address] documented as of this encounter
--- OUTSIDE RECORDS SUMMARY | 2022-06-18 15:57 | XMS_ITS | Encounter Summary ---
:1965 Author Organization [place] Address [address] [place] [address] Care Team Providers Name Role Phone Adrian Mills MD Primary Care Provider [phone] Encounter Details Date Type Department Care Team Description 10/01/2013 Orders Only [facility] Meredith Henson Interventional ENC OUNTER--DISREGARD Radiology (Primary Dx) [address] [facility] [id number] Social History Tobacco Use Types Packs/Day Years [...] ENCOUNTER--DISREGARD - Primary documented in this encounter Care Teams Burglar Alarm Mechanic Relationship Specialty Start Date End Date Adrian Mills MD PCP - General Family Practice 10/29/12 documented as of this encounter
--- OUTSIDE RECORDS SUMMARY | 2022-06-18 15:57 | XMS_ITS | Encounter Summary ---
:1965 Author Organization [facility] Address [address] [facility] [place] [address] Care Team Providers Name Role Phone Adrian Mills MD Primary Care Provider Reason for Visit Reason Comments Anxiety med evaulation Depression do LIBORIO and PHQ9 Pre Visit Planning - 2 Attempts aet 12/31/12 mychart Encounter Details Date Type Department Care Team Description 01/01/2013 Office Visit [facility] Cassidy Waller MD with mixed anxiety [address], [address] [place] [address] (Primary Dx) [place], [place] [phone] (Wo rk) [address] [phone] Social History Tobacco Use Types Packs/Day Years Used Date Never Smoker Smokeless Tobacco: Never Used Alcohol Use Standard Drinks/Week Comments No 0 (1 standard drink = 0.6 oz pure alcoho l) Sex Assigned at Date Recorded Male 01/07/2021 5:29 PM CDT documented as of this encounter Last Filed Vital Signs Vital Sign Reading Time Taken Comments Blood Pressure 96/70 01/01/2013 10:04 AM CDT Pulse 70 01/01/2013 10:04 AM CDT Temperature 36.6 ??C (97.8 ??F) 01/01/2013 10:04 AM CDT Respiratory Rate 18 01/01/2013 10:04 AM CDT Oxygen Saturation - - Inhaled Oxygen Concentration - - Weight 84.1 kg (185 lb 6.4 oz) 01/01/2013 10:04 AM CDT Height - - Body Mass Index 25.86 10/31/2012 8:18 AM INTERIOR WIRER documented in this encounter Patient Instructions Patient InstructionsAdrian Mills MD - 01/01/2013 10:50 AM CDT Your new medication is citalopram (Celexa) 20mg. Take this dose daily for two weeks. If after two weeks you are not noticing much improvement you should double your dose. Please be seen for follow-up in one month. I recommend you take 800 IU of vitamin D3 daily. You can find this at any pharmacy or grocery store. documented in this encounter Progress Notes Adrian Mills MD - 01/01/2013 10:17 AM CDT HPI Following up after CBT with questions about medication. Feels he has a problem concentrating. Deniesdepression. Brings in a list of mediations suggested by psychologist - mostly stimulant meds for ADHD. Denies excessive worry. Confirms some rumination, but doesn't sound obsessive. Sleeps well, no sleep concerns. Concerned that meds would affect is ability to think clearly or creatively. Has seen some negative impacts on from her meds. Daughter is on medication for depression. Does not know the Started working with CBT on own. Based on some personal concerns and marital concerns. Reviewed PHQ-9 and LIBORIO-7 Review of Systems Constitutional: Negative. Neurological: Negative. Psychiatric/Behavioral: Negative for depression, suicidal ideas and substance abuse. The patient is nervous/anxious. The patient does not have insomnia. Physical Exam Vitals reviewed. Constitutional: He is oriented to person, place, and time and well-developed, well-nourished, and inno distress. Eyes: Conjunctivae and EOM are normal. Neck: No thyromegaly present. Cardiovascular: Normal rate, regular rhythm and normal heart sounds. Pulmonary/Chest: Effort normal and breath sounds normal. Musculoskeletal: He exhibits no edema. Lymphadenopathy: He has no cervical adenopathy. Neurological: He is alert and oriented to person, place, and time. Skin: Skin is warm and dry. Psychiatric: Memory and affect normal. He exhibits ordered thought content. PHQ9:1 GAD7:8 309.28 Adjustment disorder with mixed anxiety and depressed mood (primary encounter diagnosis) Comment: did confer directly with Shirley Aragon - she confirms being more concerned about mood d/o over ADHD. Will trial lower dose of Celexa x1m then f/u. Will also start self assessment for ADHD understanding overlap exists between mood and adhd Plan: Vitamin D Deficiency, TSH with free T4 reflex Celexa 20mg RTC in 1m Adrian Mills MD documented in this encounter Nursing Notes 01/01/2013 10:00 AM CDT >> AMANDA Conroy Jan 01, 2013 10:09 AM Patient presents with: Anxiety - med evaulation Depression - do LIBORIO and PHQ9 Pre Visit Planning - 2 Attempts - aet 12/31/12 mychart Initial BP 96/70 Pulse 70 Temp(Src) 97.8 ??F (36.6 ??C) (Oral) Resp 18 Wt 185 lb 6.4 oz (84.097 kg) Estimated Body mass index is 25.86 kg/(m^2) as calculated from the following: Height as of 10/31/12: 5' 11(1.803 m). Weight as of this encounter: 185 lb 6.4 oz(84.097 kg).. BP completed using cuff size: large documented in this encounter Miscellaneous Notes Addendum Note - Wilmer Gomez - 01/01/2013 11:47 AM CDT Addended by: WILMER GOMEZ on: 01/01/2013 11:47 AM Modules accepted: Orders, SmartSet Addendum Note - Wilmer Gomez - 01/01/2013 11:45 AM CDT Addended by: WILMER GOMEZ on: 01/01/2013 11:45 AM Modules accepted: Orders, SmartSet documented in this encounter Plan of Treatment Not on filedocumented as of this encounter Procedures Procedure Name Priority Date/Time Associated Comments Diagnosis VITAMIN D DEFICIENCY Routine 01/01/2013 10:53 AM Adjustment di sorder Results for this SCREENING CDT with mixed anxiety procedure are in and depressed mood the resul ts section. TSH WITH FREE T4 Routine 01/01/2013 10:53 AM Adjustment disord er Results for this REFLEX CDT with mixed anxiety procedure are in and depressed mood the resul ts section. documented in this encounter Results TSH with free T4 reflex (01/01/2013 10:53 AM CDT) athologist Signature TSH 1.02 0.4 - 5.0 [facility] mU/L CLINIC LAB Specimen Anatomical Collection Method Collection Time Receive d Time (Source) Location / / Volume Laterality Blood specimen 01/01/2013 10:53 3 (specimen) AM CDT 10:55 AM CDT Adrian Mills MD LAB - BLOOD ORDERABLES Performing Organization Address City/State/ZIP Code Phon e Number [facility] [address] [place] [id number] [facility] [address] [place] [id number] (ABNORMAL) Vitamin D Deficiency (01/01/2013 10:53 AM CDT) athologist Signature Vitamin D 19 (L) 30 - 75 [facility] Deficiency ug/L [facility] LABS Comment: Season, race, dietary intake, and treatm ent affect the concentration of 60-mhdlwmw-Fywsoqq D. Values may decrea se during winter months and increase during summer months. Values less than 30 ug/L may indicate Vitamin D deficiency. Vitamin D determiniation is routinely p erformed by an immunoassay specific for 25 hydroxyvitamin D3. ??If an individua l is on vitamin D2 (ergocalciferol) supplementation, please specify 25 OH v itamin D2 and D3 level determination by LCMSMS test [id number]. ??For questions, pl ease contact the laboratory at [phone]. Specimen Anatomical Collection Method Collection Time Receive d Time (Source) Location / / Volume Laterality Blood specimen 01/01/2013 10:53 3 (specimen) AM CDT 10:55 AM CDT Adrian Mills MD LAB - BLOOD ORDERABLES Performing Organization Address City/State/ZIP Code Phon e Number [facility] [address] [place], [place] [id number] [place] [address] LABS documented in this encounter Visit Diagnoses Diagnosis Adjustment disorder with mixed anxiety a nd depressed mood - Primary documented in this encounter Care Teams Flight/Transport Nurse Relationship Specialty Start Date End Date Adrian Mills MD PCP - General Family Practice 10/29/12 documented as of this encounter
--- OUTSIDE RECORDS SUMMARY | 2022-06-18 15:57 | XMS_ITS | Encounter Summary ---
:1965 Author Organization [facility] Address [address] [facility] [place] [address] Care Team Providers Name Role Phone Adrian Mills MD Primary Care Provider [phone] Reason for Visit Reason Comments Pre-Op Exam Encounter Details Date Type Department Care Team Description 10/02/2013 Office Visit [facility] Adrian Mills Preop gen eral Clinic Cassidy Waller MD physical exam [address] [address] [facility] (Primary Dx) [facility], [address] [place], [place] [id number] [place] [address] (Wo rk) [address] [phone] Social History Tobacco Use Types Packs/Day Years Used Date Never Smoker Smokeless Tobacco: Never Used Alcohol Use Standard Drinks/Week Comments No 0 (1 standard drink = 0.6 oz pure alcoho l) Sex Assigned at Date Recorded Male 01/07/2021 5:29 PM CDT documented as of this encounter Last Filed Vital Signs Vital Sign Reading Time Taken Comments Blood Pressure 102/62 10/02/2013 9:03 AM GEODETIC COMPUTATOR Pulse 75 10/02/2013 9:03 AM GEODETIC COMPUTATOR Temperature 36.7 ??C (98 ??F) 10/02/2013 9:03 AM GEODETIC COMPUTATOR Respiratory Rate 12 10/02/2013 9:03 AM GEODETIC COMPUTATOR Oxygen Saturation - - Inhaled Oxygen Concentration - - Weight 83.9 kg (185 lb) 10/02/2013 9:03 AM GEODETIC COMPUTATOR Height 180.3 cm (5' 11) 10/02/2013 9:03 AM GEODETIC COMPUTATOR Body Mass Index 25.8 10/02/2013 9:03 AM GEODETIC COMPUTATOR documented in this encounter Progress Notes Adrian Mills MD - 10/02/2013 6:52 AM CST [address], [address] [facility] [address] Dept: [phone] PRE-OP EVALUATION: Today's date: 10/02/2013 Adam Adrian (: 1965) presents for pre-operative evaluation assessment as requested by Dr. Acosta. He requires evaluation and anesthesia risk assessment prior to undergoing surgery/procedure for treatment of varicoise spermatic vein . Date of Surgery/ Procedure: 10/07/13 Time of Surgery/ Procedure: [facility] Hospital/Surgical Facility: [facility] Primary Physician: Adrian Mills Type of Anesthesia Anticipated: to be determined Patient has a Health Care Directive or Living Will: NO HPI: 1. NO - Do you have a history of heart attack, stroke, stent, bypass or surgery on an artery in the head, neck, heart or legs? 2. NO - Do you ever have any pain or discomfort in your chest? 3. NO - Have you ever had a severe pain across the front of your chest lasting for half an hour or more? 4. NO - Do you have a history of Congestive Heart Failure? 5. NO - Are you troubled by shortness of breath when: walking on the level/ up a slight hill/ at night? 6. NO - Does your chest ever sound wheezy or whistling? 7. NO - Do you currently have a cold, bronchitis or other respiratory infection? 8. NO - Have you had a cold, bronchitis or other respiratory infection within the last 2 weeks? 9. NO - Do you usually have a cough? 10. NO - Do you sometimes get pains in the calves of your legs when you walk? 11. NO - Do you or anyone in your family have previous history of blood clots? 12. NO - Do you or does anyone in your family have a serious bleeding problem such as prolonged bleeding following surgeries or cuts? 13. NO - Have you ever had problems with anemia or been told to take iron pills? 14. NO - Have you had any abnormal blood loss such as black, tarry or bloody stools, or abnormal vaginal bleeding? 15. NO - Have you ever had a blood transfusion? 16. NO - Have you or any of your relatives ever had problems with anesthesia? 17. NO - Do you have sleep apnea, excessive snoring or daytime drowsiness? 18. NO - Do you have any prosthetic heart valves? 19. NO - Do you have prosthetic joints? 20. NO - Is there any chance that you may be ? See problem list for active medical problems. Problems all longstanding and stable, except as noted/documented. See ROS for pertinent symptoms related to these conditions. . MEDICAL HISTORY: Patient Active Problem List Diagnosis Date Noted ??? Adjustment disorder with mixed anxiety and depressed mood 12/04/2012 Priority: Medium ??? GERD (gastroesophageal reflux disease) 10/31/2012 Priority: Medium ??? Plantar fasciitis of right foot 10/31/2012 Priority: Medium ??? CARDIOVASCULAR SCREENING; LDL GOAL LESS THAN 160 10/29/2012 Priority: Medium History reviewed. No pertinent past medical history. Past Surgical History Procedure Date ??? Mastectomy subcutaneous male bilateral (gynecomastia) 2006 ??? Biopsy left breast bx 2009 Current Outpatient Prescriptions Medication Sig ??? ranitidine (ZANTAC) 300 MG tablet Take 1 tablet by mouth At Bedtime. OTC products: None, except as noted above No Known Allergies Latex Allergy: NO History Substance Use Topics ??? Smoking status: Never Smoker ??? Smokeless tobacco: Never Used ??? Alcohol Use: No History Drug Use No REVIEW OF SYSTEMS: C: NEGATIVE for fever, chills, change in weight E/M: NEGATIVE for ear, mouth and throat problems R: NEGATIVE for significant cough or SOB CV: NEGATIVE for chest pain, palpitations or peripheral edema EXAM: BP 102/62 Pulse 75 Temp 98 ??F (36.7 ??C) (Oral) Resp 12 Ht 5' 11 (1.803 m) Wt 185 lb (83.915 kg) BMI 25.81 kg/m2 GENERAL APPEARANCE: healthy, alert and no distress HENT: ear canals and TM's normal and nose and mouth without ulcers or lesions RESP: lungs clear to auscultation - no rales, rhonchi or wheezes CV: regular rate and rhythm, normal S1 S2, no S3 or S4 and no murmur, click or rub ABDOMEN: soft, nontender, no HSM or masses and bowel sounds normal NEURO: Normal strength and tone, sensory exam grossly normal, mentation intact and speech normal DIAGNOSTICS: No labs or EKG required for low risk surgery (cataract, skin procedure, breast biopsy, etc) IMPRESSION: Reason for surgery/procedure: varicocele Diagnosis/reason for consult: preoperative clearance The proposed surgical procedure is considered LOW risk. REVISED CARDIAC RISK INDEX The patient has the following serious cardiovascular risks for perioperative complications such as (AZ, PE, VFib and 3?? AV Block): No serious cardiac risks INTERPRETATION: 0 risks: Class I (very low risk - 0.4% complication rate) The patient has the following additional risks for perioperative complications: No identified additional risks 1. Preop general physical exam (V72.83) RECOMMENDATIONS: --Approval given to proceed with proposed procedure, without further diagnostic evaluation Signed Electronically by: Adrian Mills MD Copy of this evaluation report is provided to requesting physician. [facility] Preop Guidelines 2012 ETIC COMPUTATOR documented in this encounter Plan of Treatment Not on filedocumented as of this encounter Visit Diagnoses Diagnosis Preop general physical exam - Primary Other specified pre-operative examinatio n documented in this encounter Care Teams Making Machine Operator Relationship Specialty Start Date End Date Adrian Mills MD PCP - General Family Practice 10/29/12 documented as of this encounter
--- OUTSIDE RECORDS SUMMARY | 2022-06-18 15:57 | XMS_ITS | Encounter Summary ---
:1965 Author Organization [employer] Address [address] [facility] [place] [address] Care Team Providers Name Role Phone Adrian Mills MD Primary Care Provider Encounter Details Date Type Department Care Team Description 10/07/[address] 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) (Primary Suites SUBURBAN Dx) [address] [place] [address] [phone] [address] [place] [address] Social History Tobacco Use Types Packs/Day Years Used Date Never Smoker Smokeless Tobacco: Never Used Alcohol Use Standard Drinks/Week Comments No 0 (1 standard drink = 0.6 oz pure alcoho l) Sex Assigned at Date Recorded Male 01/07/2021 5:29 PM CDT documented as of this encounter Last Filed Vital Signs Vital Sign Reading Time Taken Comments Blood Pressure 122/64 10/07/2013 3:[address] IN WAITER/WAITRESS Pulse 77 10/07/2013 3:[address] IN WAITER/WAITRESS Temperature 35.4 ??C (95.7 ??F) 10/07/2013 9:[address] IN WAITER/WAITRESS Respiratory Rate 16 10/07/2013 3:[address] WAITER/WAITRESS Oxygen Saturation 96% 10/07/2013 1:[address] IN WAITER/WAITRESS Inhaled Oxygen Concentration - - Weight 83.7 kg (184 lb 8 oz) 10/07/2013 9:[address] WAITER/WAITRESS Height 170.2 cm (5' 7) 10/07/2013 9:[address] IN WAITER/WAITRESS Body Mass Index 28.9 10/07/2013 9:[address] IN WAITER/WAITRESS documented in this encounter Discharge Instructions Discharge InstructionsFroy Torres I, RN - 10/07/2013 2:40 PM CST Spermatic Vein Embolization Discharge Instructions Patient Name: Adam Campbell Today's Date: October 07, 2013 For the next 24 hours: ?? Drink extra fluids and do not drink alcohol ?? Eat a normal diet ?? Leave your bandage on. You may drive and take a shower the day after your treatment. For the next 3 days: ?? Avoid heavy activity such as lifting, straining or exercise. This will help prevent bleeding. ?? Do not swim or take a bath. ?? Keep the puncture site clean and dry. Keep a Band-Aid on it until it heals. ?? Keep drinking extra fluids. For the next 7 days: Do not have sexual intercourse (sex). Medications: ?? Wait 48 hours before taking diabetic medicines that contain metformin (Glucophage or Glucovance).See the metformin sheet. ?? Take all your other medicines, including blood thinners, unless your doctor tells you not to. ?? Take plain Tylenol (acetaminophen) or Advil (ibuprofen) to relieve any pain. It is normal to have: ?? Bruising and soreness in the neck. This may last up to a week. ?? A low fever. ?? Swelling, pain or tingling in the area that was treated (the scrotum). This may last up to a week. The symptoms you had before treatment may take up to 4 weeks to go away. The clinic will call you in one month to set up an ultrasound. Call if you have: ?? Bleeding or swelling where the tube was. If so, apply firm, constant pressure over the area whilesitting. If that doesn???t help, call 911. ?? Growing tenderness at the puncture site, redness or a hard lump ?? A fever higher than 101??F ?? Pain or trouble passing urine (urinating) ?? Any questions or concerns about anything. [facility] clinic nurse: [phone] [facility] Radiology: [phone] E IN WAITER/WAITRESS documented in this encounter Medications at Time of Discharge Medication Sig Dispensed Refills Start Date End Date HYDROcodone-acetaminophen Take 1 tablet by 20 tablet 0 09/1201/06/2014 (NORCO) 5-325 MG per mouth every 6 hours tabletIndications: as needed for pain Scrotal varices multivitamin, therapeutic Take 1 tablet by 0 07/24/2015 (THERA-VIT) TABS mouth daily ranitidine (ZANTAC) 300 Take 1 tablet by 30 tablet 1 201202/11/2014 MG tabletIndications: mouth At Bedtime. GERD (gastroesophageal reflux disease) documented as of this encounter Progress Notes Froy Torres RN - 10/07/2013 3:23 PM CST Filled Prescription sent home with pt. 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 Vein embolized with coils, See report. E IN WAITER/WAITRESS Wes Hall RN - 10/07/2013 1:08 PM CST Interventional Radiology Intra-procedural Nursing Note Patient Name: Adam Campbell Today's Date: October 07, 2013 Start Time: 1309 End of procedure time: 1350 Procedure: Spermatic Vein Embolization Report given to: Care [address][id number] Time pt departs: 1400 Fire Risk Level: 2 1310 - Procedure discussed with Mr. Campbell and his family per Dr Murrlel; consented. VSS; Alert and Oriented X4; denies pain at this time. C/O pressure in scrotum when standing. Prepped with Chloraprep (CHG 2%); draped as usual in supine position for right internal jugular access. 1325 - Embolization coils deployed in left Spermatic Vein per Dr murrell as follows: Terese 14 mm X 4 mm (Ref. # [id number]), Lot #s: [id number], [id number], [id number]; Terese 14 mm X 6 mm (Ref. #[id number] - Terese), Lot #s: [id number], [id number], [id number], [id number], [id number], [id number], [id number]. 22 Total Coils (X84 mm; X 14 6 mm) 1350 - Procedure completed; tolerated well. VSS; Alert and oriented X4, denies pain at this time. Will remove Venous sheath. 1355 - Hemostasis achieved at venous sheath site No hematoma. Band-aid on site, To Care Suites for recovery. Wes Hall RN E IN WAITER/WAITRESS documented in this encounter H&P Notes Adrian Mills MD - 10/08/2013 4:28 PM CST E IN WAITER/WAITRESS documented in this encounter Plan of Treatment Not on filedocumented as of this encounter Procedures Procedure Name Priority Date/Time Associated Comments Diagnosis IR SPERMATIC VEIN Routine 10/07/2013 1:54 PM Scrotal Resu lts for this EMBOLIZATION DRIVE IN WAITER/WAITRESS varices(aka procedure are i n VARICOCELE) the results section. INR STAT 10/07/2013 10:15 Results for this AM DRIVE IN WAITER/WAITRESS procedure are i n the results section. PARTIAL THROMBOPLASTIN STAT 10/07/2013 10:15 R esults for this TIME AM DRIVE IN WAITER/WAITRESS procedure are i n the results section. CREATININE STAT 10/07/2013 10:15 Results for this AM DRIVE IN WAITER/WAITRESS procedure are i n the results section. CBC WITH PLATELETS STAT 10/07/2013 10:15 Resul ts for this AM DRIVE IN WAITER/WAITRESS procedure are i n the results section. 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 Successful embolization of left spermatic vein. JOHN MURRELL MD Narrative 10/08/2013 7:[address] WAITER/WAITRESS INTERVENTIONAL RADIOLOGY SPERMATIC VEIN EMBOLIZATION ??10/07/2013 1:54 PM HISTORY: ??48-year-old male with symptom atic left varicocele. TECHNIQUE: Procedure and risks were expl ained to the patient in detail. The patient was prepped and drap ed and 1% lidocaine was used as local anesthetic. Ultrasound was used to document location and patency of the right internal jugular ve in and permanent image was obtained for the patient's record. Under sterile ultrasound guidance, a puncture was made in the right interna l jugular vein and a 6 Ethiopian sheath was placed. 5 Ethiopian MIGUELINA-1 cathete r was advanced over wire and selected into the left renal vein. A lef t renal venogram was performed. The catheter and wire were th en selected into an incompetent left spermatic vein and a le ft spermatic venogram was performed through the catheter at the ju nction of the left renal vein and left spermatic vein. The catheter an d wire were then directed distally into ??the left spermatic vein at the level of the mid pelvis. Distal left spermatic venogram was then performed with filming of the scrotum. With the catheter in this posit ion, the catheter and wire were directed into the duplication of th e vein at the mid pelvis level. The catheter was advanced in the slightly smaller medial venous channel. This was then embolized with 4 mm Terese coils. The catheter was then withdrawn and selected into the larger lateral channel. This channel was also embolized with [address] coils. The catheter was then positioned at the junction of these two veins and the main left spermatic vein was embolized with multip le 6 mm Terese coils. A total of 14, 6 mm Terese coils and 8, [address] coils were used to embolize the left spermatic vein. A comp letion left spermatic venogram was performed in addition to multiple se rial venograms during the course of embolization. The catheter was then selected into the left renal vein and a completion left renal v enogram was performed. The catheter and the sheath were then remove d and manual compression was placed at the venotomy site until hemost asis was obtained. There were no immediate complications. Fluoroscopy time: 9.4 minutes Contrast: 70 mL Isovue Local anesthetic: 7 mL 1% lidocaine Conscious sedation: 4 mg IV Versed, 100 mcg IV fentanyl Sedation time: 40 minutes The patient was monitored by radiology n ursing staff under my supervision and remained stable througho ut the study. FINDINGS: The left spermatic vein is meseret ssly incompetent. The vein is a single system from the left renal vein to the mid SI joint level. Distal to this it is a duplicated system draining a moderate size left varicocele. The duplicated veins in the pelvis as well as the single left spermatic vein were embolized with multiple Terese coils as described above under technique to compl ete stasis. Upon completion the vein was totally occluded. Procedure Note John Murrell MD - 10/08/2013Formatti ng of this note might be different from the original. INTERVENTIONAL RADIOLOGY SPERMATIC VEIN EMBOLIZATION 10/07/2013 1:54 PM HISTORY: 48-year-old male with symptomat ic left varicocele. TECHNIQUE: Procedure and risks were expl ained to the patient in detail. The patient was prepped and drap ed and 1% lidocaine was used as local anesthetic. Ultrasound was used to document location and patency of the right internal jugular ve in and permanent image was obtained for the patient's record. Under sterile ultrasound guidance, a puncture was made in the right interna l jugular vein and a 6 Ethiopian sheath was placed. 5 Ethiopian MIGUELINA-1 cathete r was advanced over wire and selected into the left renal vein. A lef t renal venogram was performed. The catheter and wire were th en selected into an incompetent left spermatic vein and a le ft spermatic venogram was performed through the catheter at the ju nction of the left renal vein and left spermatic vein. The catheter an d wire were then directed distally into the left spermatic vein at the level of the mid pelvis. Distal left spermatic venogram was then performed with filming of the scrotum. With the catheter in this posit ion, the catheter and wire were directed into the duplication of th e vein at the mid pelvis level. The catheter was advanced in the slightly smaller medial venous channel. This was then embolized with 4 mm Terese coils. The catheter was then withdrawn and selected into the larger lateral channel. This channel was also embolized with [address] coils. The catheter was then positioned at the junction of these two veins and the main left spermatic vein was embolized with multip le 6 mm Terese coils. A total of 14, 6 mm Terese coils and 8, [address] coils were used to embolize the left spermatic vein. A comp letion left spermatic venogram was performed in addition to multiple se rial venograms during the course of embolization. The catheter was then selected into the left renal vein and a completion left renal v enogram was performed. The catheter and the sheath were then remove d and manual compression was placed at the venotomy site until hemost asis was obtained. There were no immediate complications. Fluoroscopy time: 9.4 minutes Contrast: 70 mL Isovue Local anesthetic: 7 mL 1% lidocaine Conscious sedation: 4 mg IV Versed, 100 mcg IV fentanyl Sedation time: 40 minutes The patient was monitored by radiology n ursing staff under my supervision and remained stable througho ut the study. FINDINGS: The left spermatic vein is meseret ssly incompetent. The vein is a single system from the left renal vein to the mid SI joint level. Distal to this it is a duplicated system draining a moderate size left varicocele. The duplicated veins in the pelvis as well as the single left spermatic vein were embolized with multiple Terese coils as described above under technique to compl ete stasis. Upon completion the vein was totally occluded. IMPRESSION IMPRESSION: Grossly incompetent left spe rmatic vein with dual channels distally with a moderate size l eft varicocele. Successful embolization of left spermatic vein. JOHN MURRELL MD John Murrell MD IMG IR ORDERABLES Partial thromboplastin time (10/07/2013 10:[address] IN WAITER/WAITRESS) athologist Signature PTT 30 22 - [address] [facility] Specimen Anatomical Collection Method Collection Time Receive d Time (Source) Location / / Volume Laterality Blood specimen 10/07/2013 10:15 4 (specimen) AM DRIVE IN WAITER/WAITRESS 10:[address] IN WAITER/WAITRESS John Murrell MD LAB - BLOOD ORDERABLES Performing Organization Address City/State/ZIP Code Phon e Number [facility] [address] [address] [phone] [facility] INR (10/07/2013 10:[address] IN WAITER/WAITRESS) athologist Signature INR 0.97 0.86 - 1.14 [facility] Specimen Anatomical Collection Method Collection Time Receive d Time (Source) Location / / Volume Laterality Blood specimen 10/07/2013 10:15 4 (specimen) AM DRIVE IN WAITER/WAITRESS 10:[address] IN WAITER/WAITRESS John Murrell MD LAB - BLOOD ORDERABLES Performing Organization Address City/[facility]/ZIP Code Phon e Number [facility] [address] [address] [phone] [facility] Creatinine With GFR (10/07/2013 10:[address] IN WAITER/WAITRESS) athologist Signature Creatinine 0.91 0.66 - [place] 1.25 mg/dL [facility] GFR Estimate 89 >60 [place] mL/min/1.[address] LAB GFR Estimate If >90 >60 [place] Black mL/min/[address] [place] [address] LAB Specimen Anatomical Collection Method Collection Time Receive d Time (Source) Location / / Volume Laterality Blood specimen 10/07/2013 10:15 4 (specimen) AM DRIVE IN WAITER/WAITRESS 10:[address] IN WAITER/WAITRESS John Murrell MD LAB - BLOOD ORDERABLES Performing Organization Address City/[facility]/ZIP Code Phon e Number [facility] [address] [phone] [facility] CBC with platelets (10/07/2013 10:[address] IN WAITER/WAITRESS) athologist Signature WBC 5.4 4.0 - 11.0 [place] 10e9/L [facility] RBC Count 5.16 4.4 - 5.9 [place] 10e12/L [facility] Hemoglobin 14.6 13.3 - [place] 17.7 g/dL [facility] Hematocrit 41.9 40.0 - [place] 53.0 % [facility] MCV 81 78 - 100 [place] fl [facility] MCH 28.3 26.5 - [place] 33.0 pg [facility] MCHC 34.8 31.5 - [place] 36.5 g/dL [facility] RDW 12.7 10.0 - [place] 15.0 % [facility] Platelet Count 226 150 - 450 [place] 10e9/L [facility] Specimen Anatomical Collection Method Collection Time Receive d Time (Source) Location / / Volume Laterality Blood specimen 10/07/2013 10:15 4 (specimen) AM DRIVE IN WAITER/WAITRESS 10:[address] IN WAITER/WAITRESS John Murrell MD LAB - BLOOD ORDERABLES Performing Organization Address City/State/ZIP Code Phon e Number [facility] [address] [place] [address] [facility] documented in this encounter Visit Diagnoses Diagnosis Scrotal varices(aka VARICOCELE) - Primar y Scrotal varices documented in this encounter Administered Medications Inactive Administered Medications - up to 3 most recent administrations Medication Order MAR Action Action Date Dose Rate Site fentaNYL (SUBLIMAZE) 0.05 MG/ML injectio n Starting on Mon10/07/13 at 1104, For 1 dose, Max Hall jovany: cabinet override fentaNYL (SUBLIMAZE) injection 25-50 mcg Given 10/07/2013 1:[address] IN WAITER/WAITRESS 25 mcg 25-50 mcg, Intravenous, EVERY 5 MIN PRN, severe pain, If inadequate response may repeat 25 mcg IV slowly Q 5 min PRN severe pain, Administer over 2 Minutes, Starting on Mon10/07/13 at 1308, Doses can be exceeded under direct oversight of patient by physician., IR Intra-procedure Given 10/07/2013 1:[address] IN WAITER/WAITRESS 25 mcg Given 10/07/2013 1:[address] IN WAITER/WAITRESS 50 mcg iopamidol ([id number]) 61% solution 15 0 mL Given 10/07/2013 1:[address] IN WAITER/WAITRESS 70 mLs 150 mL, Intravenous, ONCE, On Mon10/07/13 at 1315, For 1 dose, Supplied and administered by Radiology. lidocaine (PF) (XYLOCAINE) 1 % Given by Other 10/07/2013 1:[address] IN WAITER/WAITRESS 7 mLs injection 1-30 mL 1-30 mL, Subcutaneous, ONCE PRN, for local anesthetic.?When verbally ordered by prescriber during the procedure., Starting on Mon10/07/13 at 1307, For 1 dose, Dose to be divided into smaller volumes appropriate for the procedure., IR Intra-procedure midazolam (VERSED) 1 MG/ML injection Starting on Mon10/07/13 at 1104, For 1 dose, Max Hall jovany: cabinet override midazolam (VERSED) injection 0.5-1 mg Given 10/07/2013 1:[address] IN WAITER/WAITRESS 1 mg 0.5-1 mg, Intravenous, Administer over 1 Minutes, EVERY 4 MIN PRN, sedation, If inadequate response may repeat 0.5 mg IV slowly Q 4 minutes PRN sedation until desired response., Starting on Mon10/07/13 at 1308, Doses can be exceeded under direct oversight of patient by physician., IR Intra-procedure Given 10/07/2013 1:[address] IN WAITER/WAITRESS 1 mg Given 10/07/2013 1:[address] IN WAITER/WAITRESS 0.5 mg documented in this encounter Active and Recently Administered Medications Times are shown in DRIVE IN WAITER/WAITRESS. Scheduled Medication Order 10/05/2013 10/06/2013 10/07/2013 iopamidol ([id number]-[id number]) 61% solution 150 mL (COMPLETED) 1315 (Due)1355 (Given - Provider: Herminia Hernandes - Comment: 150 opened only 70 used) 150 mL, Intravenous, ONCE, Mon10/07/13 a t 1315, For 1 dose, Supplied and administered by Radiology. PRN Medication Order 10/05/2013 10/06/2013 10/07/2013 fentaNYL (SUBLIMAZE) injection 25-50 mcg (CANCELED) 1310 (Given - Provider: Wes Hall RN)1319 (Given - Provider: Wes Hall RN)1330 (Given - Provider: Wes Hall RN) 25-50 mcg, Intravenous, for 2 Minutes, E VERY 5 MIN PRN, Starting Mon10/07/13 at 1308, severe pain, If inadequate response may repeat 25 mcg IV slowly Q 5 min PRN severe pain, Doses can be exceeded under direct oversight of patient by physician., IR Intra-procedure lidocaine (PF) (XYLOCAINE) 1 % injection 1-30 mL (COMPLETED) 1314 (Given by Other - Provider: Wes Hall RN - Comment: IR Intra-procedure per Dr murrell) 1-30 mL, Subcutaneous, ONCE PRN, for loc al anesthetic.?When verbally ordered by prescriber during the procedure., Starting on Mon10/07/13 at 1307, For 1 dose, Dose to be divided into smaller volumes appropriate for the procedure., IR Intra-procedure midazolam (VERSED) injection 0.5-1 mg (CANCELED) 1310 (Given - Provider: Wes Hall RN)1319 (Given - Provider: Wes Hall RN)1330 (Given - Provider: Wes Hall RN)1341 (Given - Provider: Wes Hall RN)1346 (Given - Provider: Wes Hall RN) 0.5-1 mg, Intravenous, for 1 Minutes, EV DAYSI 4 MIN PRN, Starting Mon10/07/13 at 1308, sedation, If inadequate response may repeat 0.5 mg IV slowly Q 4 minutes PRN sedation until desired response., Doses can be exceeded under direct oversight o f patient by physician., IR Intra-procedure documented in this encounter Care Teams Cell Tuber Hand Relationship Specialty Start Date End Date Adrian Mills MD PCP - General Family Practice 10/29/12 documented as of this encounter
--- OUTSIDE RECORDS SUMMARY | 2022-06-18 15:57 | XMS_ITS | Encounter Summary ---
:1965 Author Organization [place] Address [address] [facility] [place] [address] Care Team Providers Name Role Phone Adrian Mills MD Primary Care Provider [phone] Reason for Visit Reason Comments Physical fasting labs Health Maintenance lipids, TDAP due Pre Visit Planning - Done AET 10/29/12 Derm Problem brown spot on left forehead x 2 months Foot Injury right heel pain Encounter Details Date Type Department Care Team Description 10/31/2012 Office Visit [facility] Adrian Mills Routine g eneral medical examination at a health care facility (Primary Dx); Clinic Cassidy Waller MD GERD (gastroesophageal reflux disease); [place] [address] Seborrheic keratosis; Road, [address] [place] [address] Plantar fasciitis of right foot [place], [place] [phone] (Wo rk) [id number] [phone] Social History Tobacco Use Types Packs/Day Years Used Date Never Smoker Smokeless Tobacco: Never Used Alcohol Use Standard Drinks/Week Comments No 0 (1 standard drink = 0.6 oz pure alcoho l) Sex Assigned at Date Recorded Male 01/07/2021 5:29 PM CDT documented as of this encounter Last Filed Vital Signs Vital Sign Reading Time Taken Comments Blood Pressure 108/74 10/31/2012 8:18 AM MILK RECEIVER Pulse 63 10/31/2012 8:18 AM MILK RECEIVER Temperature 36.6 ??C (97.8 ??F) 10/31/2012 8:18 AM MILK RECEIVER Respiratory Rate 12 10/31/2012 8:18 AM MILK RECEIVER Oxygen Saturation 97% 10/31/2012 8:18 AM MILK RECEIVER Inhaled Oxygen Concentration - - Weight 83.7 kg (184 lb 8 oz) 10/31/2012 8:18 AM MILK RECEIVER Height 180.3 cm (5' 11) 10/31/2012 8:18 AM MILK RECEIVER Body Mass Index 25.73 10/31/2012 8:18 AM MILK RECEIVER documented in this encounter Patient Instructions Patient InstructionsMaritza Noguera - 10/29/2012 9:14 AM CST Preventive Health Recommendations Male Ages 40 to 49 Yearly exam: ?? See your health care provider every year in order to o Review health changes. o Discuss preventive care. o Review your medicines if your doctor has prescribed any. You should be tested each year for STDs (sexually transmitted diseases) if you???re at risk. Have a cholesterol test every 5 years. Have a colonoscopy (test for colon cancer) if someone in your family has had colon cancer or polypsbefore age 50. After age 45, have a diabetes test (fasting glucose). If you are at risk for diabetes, you should have this test every 3 years. Talk with your health care provider about whether or not a prostate cancer screening test (PSA) is right for you. Shots: Get a flu shot each year. Get a tetanus shot every 10 years. Nutrition: Eat at least 5 servings of fruits and vegetables daily. Eat whole-grain bread, whole-wheat pasta and brown rice instead of white grains and rice. For bone health: Eat calcium-rich foods or take calcium pills (500 to 600 mg) twice a day with food. Also take vitamin D (1000 IU) each day. Lifestyle Exercise for at least 150 minutes a week (30 minutes a day, 5 days a week). This will help you control your weight and prevent disease. Limit alcohol to one drink per day. No smoking. Wear sunscreen to prevent skin cancer. See your dentist every six months for an exam and cleaning. RECEIVER documented in this encounter Progress Notes Adrian Mills MD - 10/29/2012 9:14 AM CST SUBJECTIVE: CC: Adam Campbell is an 47 year old male who presents for preventative health visit. Healthy Habits: ?? Do you get at least three servings of calcium containing foods daily (dairy, green leafy vegetables, etc.)? yes ?? Amount of exercise or daily activities, outside of work: 5-7 day(s) per week ?? Problems taking medications regularly No ?? Medication side effects: No ?? Have you had an eye exam in the past two years? No ?? Do you see a dentist twice per year? no Other concerns to address: Mole on side of head evaluated, thinks he has plantar facsiitis in right foot Today's PHQ-2 Score: 0 Abuse: Current or Past(Physical, Sexual or Emotional)- No Do you feel safe in your environment - Yes History Substance Use Topics ??? Smoking status: Never Smoker ??? Smokeless tobacco: Never Used ??? Alcohol Use: No The patient does not drink >3 drinks per day nor >7 drinks per week. Last PSA: No results found for this basename: psa Last lipid profile: Total Cholesterol: No results found for this basename: chol LDL Cholesterol: No results found for this basename: ldl HDL Cholesterol: No results found for this basename: hdl Reviewed orders with patient. Reviewed health maintenance and updated orders accordingly - Yes Concerned about R heel pain - intermittent over the last couple of years. Pain right over the ball of the heel. Seems worst after rest or first thing in the morning, improves after a few steps. Daily concern. No interventions tried. Mole on R buddhism - worrisome, showed up has been gradually getting bigger. First noticed last fall. Glasses rub against it. All Histories reviewed and updated in [facility]. ROS: C: NEGATIVE for fever, chills, change in [...] N: NEGATIVE for weakness, dizziness or paresthesias P: NEGATIVE for changes in mood or affect Problem list, Medication list, Allergies, and Medical/Social/Surgical histories reviewed in [facility] andupdated as appropriate. OBJECTIVE: There were no vitals taken for this visit. Estimated Body mass index is 26.40 kg/(m^2) as calculatedfrom the following: Height as of 01/23/12: 5' 10(1.778 m). Weight as of 01/23/12: 184 lb(83.462 kg). GENERAL APPEARANCE: healthy, alert and no distress [...] hepatosplenomegaly, no masses and bowel sounds normal (male): normal male genitalia without lesions or urethral discharge, no hernia RECTAL: normal sphincter tone, no rectal masses, prostate of normal size, smooth, nontender without nodules or masses MS: no musculoskeletal defects are noted and gait is age appropriate without ataxia. R plantar fasciitis. SKIN: no suspicious lesions or rashes NEURO: Normal strength and tone, sensory exam grossly normal, mentation intact and speech normal PSYCH: mentation appears normal and affect normal/bright ATP III Guidelines FRAX Risk Assessment ICSI Preventive Guidelines ASSESSMENT/PLAN: 1. Routine general medical examination at a health care facility TDAP (ADACEL AGES 11-64), Lipid panel reflex to direct LDL, CBC with platelets, Basic metabolic panel 2. GERD (gastroesophageal reflux disease) ranitidine (ZANTAC) 300 MG tablet 3. Seborrheic keratosis DESTRUCT BENIGN LESION, UP TO 14, OFFICE/OUTPT VISIT,EST,LEVL III 4. Plantar fasciitis of right foot OFFICE/OUTPT VISIT,EST,LEVL III Verbal consent obtained. Cryo treatment x3 with 15sec thaw. Patient tolerated procedure well. Counseling: Dietary Guidelines for Americans, 2010 USDA's MyPlate regular exercise healthy diet/nutrition vision screening reports that he has never smoked. He has never used smokeless tobacco. Estimated Body mass index is 26.40 kg/(m^2) as calculated from the following: Height as of 01/23/12: 5' 10(1.778 m). Weight as of 01/23/12: 184 lb(83.462 kg). Adrian Mills MD [facility] RECEIVER documented in this encounter Nursing Notes 10/31/2012 8:00 AM CST >> SANDHYA STANFORD [facility] Oct 31, 2012 8:22 AM Patient presents with: Physical - fasting labs Health Maintenance - lipids, TDAP due Pre Visit Planning - Done - AET 10/29/12 Derm Problem - brown spot on left forehead x 2 months Foot Injury - right heel pain Initial BP 108/74 Pulse 63 Temp(Src) 97.8 ??F (36.6 ??C) (Oral) Resp 12 Ht 5' 11 (1.803 m) Wt 184 lb 8 oz (83.689 kg) BMI 25.73 kg/m2 SpO2 97% Estimated Body mass index is 25.73 kg/(m^2)as calculated from the following: Height as of this encounter: 5' 11(1.803 m). Weight as of this encounter: 184 lb 8 oz(83.689 kg).. BP completed using cuff size: regular documented in this encounter Plan of Treatment Not on filedocumented as of this encounter Procedures Procedure Name Priority Date/Time Associated Diagnosis Comme nts LIPID REFLEX TO Routine 10/31/2012 9:04 AM Routine general Res ults for this DIRECT LDL PANEL MILK RECEIVER medical examination proc edure are in at a health care the results facility section. BASIC METABOLIC Routine 10/31/2012 9:04 AM Routine general Res ults for this PANEL MILK RECEIVER medical examination procedur e are in at a health care the results facility section. CBC WITH PLATELETS Routine 10/31/2012 9:04 AM Routine general Results for this MILK RECEIVER medical examination procedur e are in at a health care the results facility section. HC DESTRUCT BENIGN Routine 10/31/2012 8:48 AM Seborrheic kerat osis LESION, UP TO 14 MILK RECEIVER documented in this encounter Results Basic metabolic panel (10/31/2012 9:04 AM MILK RECEIVER) athologist Signature Sodium 143 133 - 144 [place] mmol/L [facility] Potassium 4.3 3.4 - 5.3 [place] mmol/L [facility] Chloride 103 94 - 109 [place] mmol/L [facility] Carbon Dioxide 26 20 - 32 [place] mmol/L [facility] Anion Gap 13 6 - 17 [place] mmol/L [facility] Glucose 93 60 - 99 [place] mg/dL [facility] Urea Nitrogen 16 5 - 24 [place] mg/dL [facility] Creatinine 0.84 0.66 - [place] 1.25 mg/dL [facility] GFR Estimate >90 >60 [place] mL/min/1.7 [facility] m2 GFR Estimate If >90 >60 [place] Black mL/min/1.7 [facility] m2 Calcium 9.7 8.5 - 10.4 [place] mg/dL [facility] Specimen Anatomical Collection Method Collection Time Receive d Time (Source) Location / / Volume Laterality Blood specimen 10/31/2012 9:04 AM 013 9:06 (specimen) MILK RECEIVER AM MILK RECEIVER Adrian Mills MD LAB - BLOOD ORDERABLES Performing Organization Address City/State/ZIP Code Phon [facility] Number [facility] [address] [place] [address] [facility] [address] [place] [address] CBC with platelets (10/31/2012 9:04 AM MILK RECEIVER) athologist Signature WBC 6.5 4.0 - 11.0 [place] 10e9/L [facility] RBC Count 5.27 4.4 - 5.9 [place] 10e12/L [facility] Hemoglobin 14.7 13.3 - [facility] 17.7 g/dL [facility] Hematocrit 43.1 40.0 - [facility] 53.0 % [facility] MCV 82 78 - 100 [facility] MCH 27.9 26.5 - [place] 33.0 pg [facility] MCHC 34.1 31.5 - [facility] 36.5 g/dL [facility] RDW 12.7 10.0 - [facility] 15.0 % [facility] Platelet Count 254 150 - 450 [place] 10e9/L [facility] Specimen Anatomical Collection Method Collection Time Receive d Time (Source) Location / / Volume Laterality Blood specimen 10/31/2012 9:04 AM 013 9:06 (specimen) MILK RECEIVER AM MILK RECEIVER Adrian Mills MD LAB - BLOOD ORDERABLES Performing Organization Address City/[facility]/ZIP Code Phon e Number [facility] [place] [address] [facility] [place] [address] LAB (ABNORMAL) Lipid panel reflex to direct LDL (10/31/2012 9:04 AM MILK RECEIVER) athologist Signature Cholesterol 184 0 - 200 [facility] mg/dL CLINIC LAB Comment: LDL Cholesterol is the primary guide to therapy. The NCEP recommends further evaluation of: patients with cholesterol greater than 200 mg/dL if additional risk facto rs are present, cholesterol greater than 240 mg/dL, triglycerides greater than 1 50 mg/dL, or HDL less than 40 mg/dL. Triglycerides 194 (H) 0 - 150 mg/dL [facility] HDL Cholesterol 40 40 - 110 mg/dL [facility] LDL Cholesterol Calculated 105 0 - 129 mg/dL [facility] Comment: LDL Cholesterol is the primary guide to therapy: LDL-cholesterol goal in high risk patients is <100 mg/dL and in very high risk patients is <70 mg/dL. VLDL-Cholesterol 39 (H) 0 - 30 mg/dL [facility] Cholesterol/HDL Ratio 4.6 0.0 - 5.0 [facility] Specimen Anatomical Collection Method Collection Time Receive d Time (Source) Location / / Volume Laterality Blood specimen 10/31/2012 9:04 AM 013 9:06 (specimen) MILK RECEIVER AM MILK RECEIVER Adrian Mills MD LAB - BLOOD ORDERABLES Performing Organization Address City/[facility]/ZIP Code Phon e Number [facility] [address] [place] [address] [facility] [address] [place] [address] documented in this encounter Visit Diagnoses Diagnosis Routine general medical examination at a health care facility - Primary GERD (gastroesophageal reflux disease) Esophageal reflux Seborrheic keratosis Plantar fasciitis of right foot Plantar fascial fibromatosis documented in this encounter Care Teams Under Cutter Relationship Specialty Start Date End Date Adrian Mills MD PCP - General Family Practice 10/29/12 documented as of this encounter
--- OUTSIDE RECORDS SUMMARY | 2022-06-18 15:57 | XMS_ITS | Encounter Summary ---
:1965 Author Organization [place] Address [facility] [place] [address] Care Team Providers Name Role Phone Adrian Mills MD Primary Care Provider [phone] Encounter Details Date Type Department Care Team Description 12/17/2012 Office Visit [facility] Shirley Aragon LP Adjustment disorder Services [facility] MOTEL OPERATOR KNOB with mixed anxiety and [facility] depressed mood MOTEL OPERATOR KNOB LANCE Sandra [place], [place] (Primary Dx) [place] [address] [phone] Social History Tobacco Use Types Packs/Day Years Used Date Never Smoker Smokeless Tobacco: Never Used Alcohol Use Standard Drinks/Week Comments No 0 (1 standard drink = 0.6 oz pure alcoho l) Sex Assigned at Date Recorded Male 01/07/2021 5:29 PM CDT documented as of this encounter Progress Notes Shirley Aragon LP - 12/17/2012 10:41 AM CDT Images from the original note were not included. Progress Note Client Name: Adam Campbell Date: 12-17-12 Service Type: Individual Session Start Time: 10:30 Session End Time: 11:20 Session Length: 45-52 min Session #: 2 Attendees: Client Treatment Plan PHQ-9 On 12-04-12 Score = 5 LIBORIO-7 On 12-04-12 Score = 5 DATA Appettie, energy, sleep okay today. Baseline: Energy Concentration Irritability phq-9=5 , Anxiety: Worries, can't control worry, troublerelaxing, restless, irritable, perfection liborio-7=5. Client shares that there have been multiple stressors over the last 4 years: his has had cancer, then a seizure problem, drinking problem - now resolved, and now she's voicing doubts about the marriage. Explored resources and unmeet needs. CBT, Developmental and supportive therapies provided Treatment Objective(s) Addressed in This Session: Adjustment Difficulties: will develop coping/problem-solving skills to facilitate more adaptive adjustment Relationship Problems: will address relationship difficulties in a more adaptive manner Progress on / Status of Treatment Objective(s) / Homework: Satisfactory progress 90-day Treatment Plan review completed: no Current Stressors / Issues: Interpersonal , memory Medication Changes: NA Medication Compliance: NA Changes in Chemical Use: NA Changes in Health Issues: NA ASSESSMENT: Current Emotional/Mental Status (status of significant symptoms): Risk status: (Self / Other harm or suicidal ideation) Client denies current fears or concerns for personal safety. Client denies current or recent suicidal ideation or behaviors. Client denies current or recent homicidal ideation or behaviors. Client denies current or recent self injurious behavior or ideation. Client denies other safety concerns. A safety and risk management plan has not been developed at this time, however client was given the after-hours number should there be a change in any of these risk factors. Appearance: Appropriate Eye Contact: Good Psychomotor Behavior: Normal Attitude: Cooperative Orientation: All Speech Rate / Production: Normal Volume: Normal Mood: Normal Affect: Appropriate Thought Content: Clear Thought Form: Coherent Logical Insight: Good Collateral Reports Completed: LIBORIO-7 and PHQ-9 Plan: (Homework, other): Begin gratitude statements Look for partner activities to do with Shirley Aragon LP documented in this encounter Plan of Treatment Not on filedocumented as of this encounter Visit Diagnoses Diagnosis Adjustment disorder with mixed anxiety a nd depressed mood - Primary documented in this encounter Care Teams Cement Finisher Apprentice Relationship Specialty Start Date End Date Adrian Mills MD PCP - General Family Practice 10/29/12 documented as of this encounter
--- OUTSIDE RECORDS SUMMARY | 2022-06-18 15:57 | XMS_ITS | Encounter Summary ---
:1965 Author Organization [facility] Address [facility] [place] [address] Care Team Providers Name Role Phone Adrian Mills MD Primary Care Provider [phone] Encounter Details Date Type Department Care Team Description 12/04/2012 Office Visit [facility] Shirley Aragon LP Adjustment disorder Services [facility] LABORATORY ASSISTANT KNOB with mixed anxiety and [facility] depressed mood LABORATORY ASSISTANT KNOB LANCE Sandra [place], [place] (Primary Dx) [place] [phone] Social History Tobacco Use Types Packs/Day Years Used Date Never Smoker Smokeless Tobacco: Never Used Alcohol Use Standard Drinks/Week Comments No 0 (1 standard drink = 0.6 oz pure alcoho l) Sex Assigned at Date Recorded Male 01/07/2021 5:29 PM CDT documented as of this encounter Progress Notes Shirley Aragon LP - 12/04/2012 3:23 PM CDT Images from the original note were not included. Adult Intake Structured Interview CLIENT'S NAME: Adam Campbell : 1965 ACCT. NUMBER: [id number] DATE OF SERVICE: 12/04/12 Identifying Information: Client is a 47 year old, , male. Client was referred for counseling by self. 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 Client attended the session alone. Client's Statement of Presenting Concern: Client reports the reason for seeking therapy at this time as stress. Client stated that his symptoms have resulted in the following functional impairments: home life with who has had a string of medical concerns. History of Presenting Concern: Client reports that these problem(s) began over time and increased in the last quarter. Client has attempted to resolve these concerns in the past through talking it out. Client reports that other professional(s) are not involved in providing support / services. Social History: Client reported he grew up in [place], [place]. They were the second born of 4 children. Parents when he was 1 year old. Client reported that his childhood was unstable but engaged in hobbies. Client described his current relationships with family of origin as stressed. Client reported a history of 1marriage. Client has been for 30 years. Client reported having2 children. Client identified some stable and meaningful social connections. Client reported that hehas not been involved with the legal system. Client's highest education level was 11th grade. Clientdid not identify any learning problems. There are no ethnic, cultural or buddhist factors that may be relevant for therapy. Client identified his preferred language to be Uruguayan. Client reported he does not need the assistance of an pole framer or other support involved in therapy. Modifications will not be used to assist communication in therapy. Client did not serve in the . Client reports family history includes Cancer in his father and maternal grandmother and Connective Tissue Disorder in his sister. Mental Health History: Client reported no family history of mental health issues. Client has not been previously diagnosed with a mental health diagnosis. Client has not received mental health services in the past. Hospitalizations: None. Client is not currently receiving any mental health services. Chemical Health History: Client reported the following biological family members or relatives with chemical health issues: Mother reportedly used alcohol . Client has not received chemical dependency treatment in the past. Client is not currently receiving any chemical dependency treatment. Client reports no problems as a result of their drinking / drug use. Client Reports: Client reports using alcohol 2 times per month. Client denies using tobacco. Client denies using marijuanna. Client reports using caffeine 3 times per day and drinks 1 at a time. Client started using caffeine at age 16. Client denies using street drugs. Client denies the non-medical use of prescription or over the counter drugs. CAGE: None of the patient's responses to the CAGE screening were positive. Based on the negative Cage-Aid score and clinical interview there are not indications of drug or alcohol abuse. Discussed the general effects of drugs and alcohol on health and well-being. Significant Losses / Trauma / Abuse / Neglect Issues: Has never known his biological father. Step father 5 years ago- hard to get over. Cancer 3 years ago, newly sober for 1 year. Issues of possible neglect are not present. Medical Issues: Client has had a physical exam to rule out medical causes for current symptoms. Date of last physical exam was within the past year. Client was encouraged to follow up with PCP if symptoms were to develop. The client has a [facility] Primary Care Provider, who is named Adrian Mills. The client reports not having a psychiatrist. Client reports no current medical concerns. The client denies the presence of chronic or episodic pain. There are nutritional concerns: cholesterol and weight. Client reports current meds as: Current Outpatient Prescriptions Medication Sig ??? ranitidine (ZANTAC) 300 MG tablet Take 1 tablet by mouth At Bedtime. ??? omeprazole (PRILOSEC) 40 MG capsule Take 1 capsule by mouth daily. Take 30- 60 minutes before a meal. ??? acetaminophen-codeine 300-30 MG per tablet Take 1-2 tablets by mouth every 6 hours as needed forpain. ??? cyclobenzaprine (FLEXERIL) 10 MG tablet Take 1 tablet by mouth 3 times daily as needed for muscle spasms. Client Allergies: No Known Allergies Medical History: No past medical history on file. Medication Adherence: N/A - Client does not have prescribed psychiatric medications. Client was provided recommendation to follow-up with prescribing physician. Mental Status Assessment: Appearance: Appropriate Eye Contact: Good Psychomotor Behavior: Normal Attitude: Cooperative Orientation: All Speech Rate / Production: Normal Volume: Normal Mood: Normal Affect: Appropriate Thought Content: Clear Thought Form: Coherent Logical Insight: Good Review of Symptoms: Depression: Energy Concentration Irritability phq-9=5 Michelle: No symptoms Psychosis: No symptoms Anxiety: Worries, can't control worry, trouble relaxing, restless, irritable, perfection ofelia-7=5. Panic: No symptoms Post Traumatic Stress Disorder: No symptoms Obsessive Compulsive Disorder: No symptoms Eating Disorder: No symptoms Oppositional Defiant Disorder: No symptoms ADD / ADHD: No symptoms Conduct Disorder: No symptoms Safety Issues and Plan for Safety and Risk Management: Client denies a history of suicidal ideation, suicide attempts, self-injurious behavior, homicidal ideation, homicidal behavior and and other safety concerns Client denies current fears or concerns for personal safety. Client reports a passing thought of better off not here. Denies plan , nor intent. Client denies current or recent homicidal ideation or behaviors. Client denies current or recent self injurious behavior or ideation. Client denies other safety concerns. Client reports there are no firearms in the house. A safety and risk management plan has been developed including: Client consented to co-developed safety plan, which includes talk with sposue, talk with counselor, call [facility] after hours number if passingthoughts esculate.. Patient's Strengths and Limitations: Client identified the following strengths or resources that will help him succeed in counseling: family support. Client identified the following supports: family. Things that may interfere with the clients success in counseling include:schedule. Diagnostic Criteria: Adjustment Disorder with Mixed Anxiety and Depressed Mood: The predominant manifestation is a combination of depression and anxiety Functional Status: Client's symptoms have caused and are causing reduced functional status in the following areas: Social / Relational - has had medical concerns DSM-IV Diagnoses: 3--13 (Sustained by DSM-IV Criteria Listed Above) AXIS I: 309.28 AXIS II: V71.09 - No Diagnosis AXIS III: unremarkable AXIS IV: of step parent 8 years ago, interpersonal stress / burnout AXIS V: Current GAF estimated at: 55 Highest GAF past year estimated at: 65 Attendance Agreement: Client has signed Attendance Agreement:Yes Preliminary Treatment Plan: The client reports no currently identified buddhist, ethnic or cultural issues relevant to therapy. [facility] Teacher services are not indicated. Modifications to assist communication are not indicated. The concerns identified by the client will be addressed in therapy. Initial Treatment will focus on: Adjustment Difficulties related to: family concerns. As a preliminary treatment goal, client will develop coping/problem-solving skills to facilitate more adaptive adjustment. The focus of initial interventions will be to alleviate anxiety, alleviate obsessional thinking, increase trust and teach distress tolerance skills. Collaboration with other professionals is not indicated at this time. Referral to another professional/service is not indicated at this time. A Release of Information is not needed at this time. Report to child / adult protection services was NA. Client will have access to their [facility] medical record. Shirley Aragon LP December 04, 2012 documented in this encounter Plan of Treatment Not on filedocumented as of this encounter Visit Diagnoses Diagnosis Adjustment disorder with mixed anxiety a nd depressed mood - Primary documented in this encounter Care Teams Rad Technologist Relationship Specialty Start Date End Date Adrian Mills MD PCP - General Family Practice 10/29/12 documented as of this encounter
--- OUTSIDE RECORDS SUMMARY | 2022-06-18 15:57 | XMS_ITS | Encounter Summary ---
:1965 Author Organization [facility] Address [address] [place] [id number] Care Team Providers Name Role Phone Adrian Mills MD Primary Care Provider [phone] Encounter Details Date Type Department Care Team Description 12/31/2012 Office Visit [facility] Shirley Aragon LP Adjustment disorder Services [facility] MARKETING SYSTEMS MANAGER KNOB with mixed anxiety and [facility] depressed mood MARKETING SYSTEMS MANAGER KNOB LANCE Sandra [place], [place] (Primary Dx) [place] [address] [phone] Social History Tobacco Use Types Packs/Day Years Used Date Never Smoker Smokeless Tobacco: Never Used Alcohol Use Standard Drinks/Week Comments No 0 (1 standard drink = 0.6 oz pure alcoho l) Sex Assigned at Date Recorded Male 01/07/2021 5:29 PM CDT documented as of this encounter Progress Notes Shirley Aragon LP - 12/31/2012 9:30 AM CDT Images from the original note were not included. Progress Note Client Name: Adam Campbell Date: 12-31-12 Service Type: Individual Session Start Time: 9:30 Session End Time: 10:20 Session Length: 45-52 min Session #: 3 Attendees: Client Treatment Plan 12-31-12 PHQ-9 On 12-04-12 Score = 5 LIBORIO-7 On 12-04-12 Score = 5 DATA Stress this week, daughter age 28 getting Monday ( 2nd dauhgter not attending), is starting a new job, saying goodbye to an old friend. ad a internal Explored top 10 distortions. Reviewed emotional signals. Processed one around guilt. Client would like to set up a med evaluation appointment. Shares his daughter is on something. CBT, Developmental and supportive therapies provided Treatment [...] Completed: LIBORIO-7 and PHQ-9 Plan: (Homework, other): See PCP for med eval Review info on distorted thoughts and emotion signals Past hw Begin gratitude statements Look for partner activities to do with Shirley Aragon LP documented in this encounter Plan of Treatment Not on filedocumented as of this encounter Visit Diagnoses Diagnosis Adjustment disorder with mixed anxiety a nd depressed mood - Primary documented in this encounter Care Teams Supervisor Filling And Packing Relationship Specialty Start Date End Date Adrian Mills MD PCP - General Family Practice 10/29/12 documented as of this encounter
--- OUTSIDE RECORDS SUMMARY | 2022-06-18 15:57 | XMS_ITS | Encounter Summary ---
:1965 Author Organization [place] Address [facility] [place] [address] Care Team Providers Name Role Phone Adrian Mills MD Primary Care Provider [phone] Encounter Details Date Type Department Care Team Description 01/22/2013 Office Visit [facility] Shirley Aragon LP Adjustment disorder Services [facility] REAL ESTATE TRANSACTION COORDINATOR KNOB with mixed anxiety and [facility] depressed mood REAL ESTATE TRANSACTION COORDINATOR KNOB LANCE Sandra [place], [place] (Primary Dx) [place] [address] [phone] Social History Tobacco Use Types Packs/Day Years Used Date Never Smoker Smokeless Tobacco: Never Used Alcohol Use Standard Drinks/Week Comments No 0 (1 standard drink = 0.6 oz pure alcoho l) Sex Assigned at Date Recorded Male 01/07/2021 5:29 PM CDT documented as of this encounter Progress Notes Shirley Aragon LP - 01/22/2013 11:22 AM CDT Images from the original note were not included. Progress Note Client Name: Adam Campbell Date: 01-22-13 Service Type: Individual Session Start Time: 9:30 Session End Time: 10:20 Session Length: 45-52 min Session #: 5 Attendees: Client and sposue Treatment Plan 12-31-12 PHQ-9 On 12-04-12 Score = 5 LIBORIO-7 On 12-04-12 Score = 5 DATA Client with spouse T. present. Focus of session is creating a care manual for one another. Explored basic communication style for neutral events then moved onto stress and health related events. Clients able to articulate met needs, and unmeet needs. Offered 2 behavioral interventions 1) to normalize taking a break and using a common object to indicate I am returning. 2) Constructed a symptoms hierarchy to help understand when to help. Introduced Basic components of gender communication CBT, Developmental and supportive therapies provided Treatment [...] Medication Compliance: NA Changes in Chemical Use: Remains smoke free Changes in Health Issues: NA ASSESSMENT: Current [...] Completed: LIBORIO-7 and PHQ-9 Plan: (Homework, other): Implement 2 behavioral techniques as described in session Past hw Read material on each of the 3 themes identified today See PCP for med eval Review info on distorted thoughts and emotion signals Past hw Begin gratitude statements Look for partner activities to do with Shirley Aragon LP documented in this encounter Plan of Treatment Not on filedocumented as of this encounter Visit Diagnoses Diagnosis Adjustment disorder with mixed anxiety a nd depressed mood - Primary documented in this encounter Care Teams Clinical Laboratory Technologist Relationship Specialty Start Date End Date Adrian Mills MD PCP - General Family Practice 10/29/12 documented as of this encounter
--- OUTSIDE RECORDS SUMMARY | 2022-06-18 15:57 | XMS_ITS | Encounter Summary ---
:1965 Author Organization [place] Address [address] [facility] [place] [address] Care Team Providers Name Role Phone Adrian Mills MD Primary Care Provider [phone] Reason for Referral Referral not Required - Closed Specialty Diagnoses / Procedures Referred By Contact Refer red To Contact Diagnoses Mass, scrotum Sonali Clark, [facility] [address] [facility] [address] [facility] [address] [place] [address] [place] [address] Phone: [phone] Referral ID Status Reason Start Date Expiration Date Visits Requ ested Visits Authorized [id number] Closed 08/02/2013 01/29/2014 1 1 TER DECORATOR Reason for Visit Reason Comments Mass lump on scrotum Otitis Media left ear Encounter Details Date Type Department Care Team Description 07/25/2013 Office Visit [facility] Sonali Clark Acute o titis media, left (Primary Dx); Clinic Cassidy Griggs MD Mass, scrotum [address] [address] [facility], [address] [place] [address] [place], [place] [phone] (Wo rk) [phone] Social History Tobacco Use Types Packs/Day Years Used Date Never Smoker Smokeless Tobacco: Never Used Alcohol Use Standard Drinks/Week Comments No 0 (1 standard drink = 0.6 oz pure alcoho l) Sex Assigned at Date Recorded Male 01/07/2021 5:29 PM CDT documented as of this encounter Last Filed Vital Signs Vital Sign Reading Time Taken Comments Blood Pressure 112/78 07/25/2013 2:45 PM PAINTER DECORATOR Pulse 84 07/25/2013 2:45 PM PAINTER DECORATOR Temperature 36.7 ??C (98.1 ??F) 07/25/2013 2:45 PM PAINTER DECORATOR Respiratory Rate 18 07/25/2013 2:45 PM PAINTER DECORATOR Oxygen Saturation - - Inhaled Oxygen Concentration - - Weight 86 kg (189 lb 8 oz) 07/25/2013 2:45 PM PAINTER DECORATOR Height 182.9 cm (6') 07/25/2013 2:45 PM PAINTER DECORATOR Body Mass Index 25.7 07/25/2013 2:45 PM PAINTER DECORATOR documented in this encounter Progress Notes Sonali Clark MD - 07/25/2013 10:17 AM CST SUBJECTIVE: Adam Campbell is a 48 year old male who presents to clinic today for the following health issues: Concern - lump on scrotum ?? Onset: five years ago- has been growing larger , vasectomy 20 yrs ago, ultrasound done 5 yrs ago and benign, left side, it is getting larger, large as his testicle now, and uncomrtable, and pinching, even with sitting, walking causes some rubbing feeeling. No pain with sex, no pain with urination, no rash ?? Description: Normal but attached to one of testicles ?? Intensity: 2/10- very uncomfortable not painful ?? Progression of Symptoms: worse ?? Accompanying Signs & Symptoms: None right now ?? Previous history of similar problem: no ?? Precipitating factors: Worsened by: no ?? Alleviating factors: Improved by: no ?? Therapies Tried and outcome: eric Medina is here today with: CC:Ear Pain and symptoms of no fever and no chills. Serious symptoms include none applicable. Onset of symptoms was 2 weeks ago. Course of illness is same.none applicable exposures. Treatment measures tried include None tried. Problem list and histories reviewed & adjusted, as indicated. Additional history: as documented PROBLEMS TO ADD ON... Problem list, Medication list, Allergies, and Medical/Social/Surgical histories reviewed in [facility] andupdated as appropriate. ROS: C: NEGATIVE for fever, chills, change in weight E/M: NEGATIVE for ear, mouth and throat problems R: NEGATIVE for significant cough or SOB CV: NEGATIVE for chest pain, palpitations or peripheral edema OBJECTIVE: BP 112/78 Pulse 84 Temp 98.1 ??F (36.7 ??C) (Oral) Resp 18 Ht 6' (1.829 m) Wt 189 lb 8 oz (85.957 kg) BMI 25.70 kg/m2 Body mass index is 25.70 kg/(m^2). GENERAL: healthy, alert, well nourished, well hydrated, no distress HENT: ear canals- normal; TMs- left side with white opacity behind the anterior TM; Nose- normal; Mouth- no ulcers, no lesions NECK: no tenderness, no adenopathy, no asymmetry, no masses, no stiffness; thyroid- normal to palpation MS: extremities- no gross deformities noted, no edema - male: testicles- normal, but on the left side there is a full ness the feels cystic, as large asthe testicle, does appear to be attacked, not hard, but soft, no atrophy, ASSESSMENT/PLAN: 382.9 Acute otitis media, left (primary encounter diagnosis) Comment: Plan: amoxicillin-clavulanate (AUGMENTIN) 500-125 MG per tablet 608.89 Mass, scrotum Comment: Plan: US Testicular and Scrotum Will refer to urology based on results Sonali Clark MD [facility] TER DECORATOR documented in this encounter Nursing Notes 07/25/2013 2:40 PM CST >> HENRY GAMBOA Sandra Jul 25, 2013 2:52 PM Patient presents with: Mass - lump on scrotum Otitis Media - left ear Initial BP 112/78 Pulse 84 Temp 98.1 ??F (36.7 ??C) (Oral) Resp 18 Ht 6' (1.829 m) Wt 189 lb 8 oz (85.957 kg) BMI 25.70 kg/m2 Estimated Body mass index is 25.70 kg/(m^2) as calculated from the following: Height as of this encounter: 6' 0(1.829 m). Weight as of this encounter: 189 lb 8 oz(85.957 kg). BP completed using cuff size: large on right arm. sma Carole documented in this encounter Miscellaneous Notes Addendum Note - Yarely Morel - 08/02/2013 10:00 AM PAINTER DECORATOR Addended by: YARELY MOREL on: 08/02/2013 10:00 AM Modules accepted: Orders TER DECORATOR documented in this encounter Plan of Treatment Scheduled Referrals Name Type Priority Associated Diagnoses Order [facility] UROLOGY ADULT REFERRAL Referral Routine Mass, scrotum Orde red: 08/02/2013 documented as of this encounter Visit Diagnoses Diagnosis Acute otitis media, left - Primary Unspecified otitis media Mass, scrotum Other specified disorder of male genital organs documented in this encounter Care Teams Hooker Off Relationship Specialty Start Date End Date Adrian Mills MD PCP - General Family Practice 10/29/12 documented as of this encounter
--- OUTSIDE RECORDS SUMMARY | 2022-06-18 15:57 | XMS_ITS | Encounter Summary ---
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 with mixed anxiety and [facility] depressed mood WET POUR MIXER KNOB LANCE Sandra [place], [place] (Primary Dx) [place] [address] [phone] Social History Tobacco Use Types Packs/Day Years Used Date Never Smoker Smokeless Tobacco: Never Used Alcohol Use Standard Drinks/Week Comments No 0 (1 standard drink = 0.6 oz pure alcoho l) Sex Assigned at Date Recorded Male 01/07/2021 5:29 PM CDT documented as of this encounter Progress Notes Shirley Aragon LP - 01/14/2013 11:02 AM CDT Progress Note Client Name: Adam Campbell Date: 01-14-13 Service Type: Individual Session Start Time: 9:30 Session End Time: 10:20 Session Length: 45-52 min Session #: 4 Attendees: Client Treatment Plan 12-31-12 PHQ-9 On 12-04-12 Score = 5 LIBORIO-7 On 12-04-12 Score = 5 DATA Client has spoke with his PCP about mental health including ADD symptoms and medication. Addressed questions about focus and ADD vs focus due to mood disruption. Reviewed care mgr burnout, which thiswriter and client are in clear agreement about. Focus of session is how to be in his marriage and manage caring for his who has had multiple medical events. Client shares he has tried being more giving, setting boundaries for himself and monitoring his energy. 3 themes identified. CBT, Developmental and supportive therapies provided Treatment [...] Completed: LIBORIO-7 and PHQ-9 Plan: (Homework, other): Read material on each of the 3 [...] Primary documented in this encounter Care Teams Reed Man Relationship Specialty Start Date End Date Adrian Mills MD PCP - General Family Practice 10/29/12 documented as of this encounter
--- OUTSIDE RECORDS SUMMARY | 2022-06-18 15:57 | XMS_ITS | Encounter Summary ---
:1965 Author Organization [place] Address [address] [place] [address]. 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 ANALYST KNOB with mixed anxiety and [facility] depressed mood SOFTWARE CONFIGURATION ANALYST KNOB LANCE Sandra [place], [place] (Primary Dx) [place] [address] [phone] Social History Tobacco Use Types Packs/Day Years Used Date Never Smoker Smokeless Tobacco: Never Used Alcohol Use Standard Drinks/Week Comments No 0 (1 standard drink = 0.6 oz pure alcoho l) Sex Assigned at Date Recorded Male 01/07/2021 5:29 PM CDT documented as of this encounter Progress Notes Shirley Aragon LP - 01/28/2013 1:30 PM CDT Progress Note Client Name: Adam Campbell Date: 01-28-13 Service Type: Individual Session Start Time: 12:30 Session End Time: 1:20 Session Length: 45-52 min Session #: 6 Attendees: client's spouse Shaniqua Treatment Plan 12-31-12 PHQ-9 On 12-04-12 Score = 5 LIBORIO-7 On 12-04-12 Score = 5 DATA Session with T. present. Focus of session is exploring relationship, communication, history of the family and triggers. Client is insightful about barriers to intimacy. Shares that overall she has trust issues. In the visit it is discovered that she has paranoia, and hears a voice; which she will address when she sees a psychiatrist on Monday. This information is helpful in understanding the stress level for her spouse, who is feeling powerless as to what to do to help her at times. Gather collateral info about family life Treatment Objective(s) Addressed in This Session: Adjustment [...] Completed: LIBORIO-7 and PHQ-9 Plan: (Homework, other): None- collateral visit Past hw Implement 2 behavioral techniques as described in [...] Primary documented in this encounter Care Teams Digital Media Intern Relationship Specialty Start Date End Date Adrian Mills MD PCP - General Family Practice 10/29/12 documented as of this encounter
--- OUTSIDE RECORDS SUMMARY | 2022-06-18 15:57 | XMS_ITS | Encounter Summary ---
:1965 Author Organization [place] Address [facility] [place] [address] Care Team Providers Name Role Phone Ismael Perez MD Primary Care Provider Adrian Mills MD Primary Care Provider [phone] Reason for Visit Reason Comments Consult left rib pain, working on ca r last week and has had pain following putting bumper back on Encounter Details Date Type Department Care Team Description 01/23/2012 Office Visit [facility] Ismael Perez MD Right-sided chest wall Clinic [address] pain (Primary Dx) [address] [facility] [place], [place] [phone] Social History Tobacco Use Types Packs/Day Years Used Date Never Smoker Smokeless Tobacco: Never Used Alcohol Use Standard Drinks/Week Comments No 0 (1 standard drink = 0.6 oz pure alcoho l) Sex Assigned at Date Recorded Male 01/07/2021 5:29 PM CDT documented as of this encounter Last Filed Vital Signs Vital Sign Reading Time Taken Comments Blood Pressure 104/70 01/23/2012 11:07 AM CDT Pulse 74 01/23/2012 11:07 AM CDT Temperature 36.6 ??C (97.8 ??F) 01/23/2012 11:07 AM CDT Respiratory Rate 18 01/23/2012 11:07 AM CDT Oxygen Saturation 96% 01/23/2012 11:07 AM CDT Inhaled Oxygen Concentration - - Weight 83.5 kg (184 lb) 01/23/2012 11:07 AM CDT Height 177.8 cm (5' 10) 01/23/2012 11:07 AM CDT Body Mass Index 26.4 01/23/2012 11:07 AM CDT documented in this encounter Progress Notes Ismael Perez MD - 01/30/2012 7:09 AM CDT SUBJECTIVE: Adam Campbell, a 46 year old male scheduled an appointment to discuss the following issues: RIGHT-SIDED CHEST WALL PAIN Medical, social, surgical, and family histories reviewed. ROS: See HPI. No nausea/vomiting. No fever/chills. No chest pain/SOB. No BM/urine problems. No syncope. OBJECTIVE: BP 104/70 Pulse 74 Temp(Src) 97.8 ??F (36.6 ??C) (Oral) Resp 18 Ht 5' 10 (1.778 m) Wt 184lb (83.462 kg) BMI 26.40 kg/m2 SpO2 96% EXAM: GENERAL APPEARANCE: alert and no distress HENT: ear canals [...] LYMPHATICS: normal ant/post cervical and supraclavicular nodes ABDOMEN: soft, nontender, without hepatosplenomegaly or masses and bowel sounds normal MS: extremities normal- no gross deformities noted SKIN: no suspicious lesions or rashes NEURO: Normal strength and tone, mentation intact and speech normal PSYCH: mentation appears normal and affect normal/bright ASSESSMENT/PLAN: 786.52Y Right-sided chest wall pain (primary encounter diagnosis) Plan: X-ray Chest 2 vws*, acetaminophen-codeine 300-30 MG per tablet, cyclobenzaprine (FLEXERIL) 10 MG tablet Return if worsening or persistent symptoms. documented in this encounter Nursing Notes 01/23/2012 11:00 AM CDT >> ROXY FLYNN Mon January 23, 2012 11:10 AM Patient presents with: Consult - left rib pain, working on car last week and has had pain following putting bumper back on Initial BP 104/70 Pulse 74 Temp(Src) 97.8 ??F (36.6 ??C) (Oral) Resp 18 Ht 5' 10 (1.778 m) Wt 184 lb (83.462 kg) BMI 26.40 kg/m2 SpO2 96% Estimated Body mass index is 26.40 kg/(m^2) as calculated from the following: Height as of this encounter: 5' 10(1.778 m). Weight as of this encounter: 184 lb(83.462 kg). BP completed using cuff size large Right Arm Health Maintenance reviewed - Yes: Tobacco Verified: Yes Payor/Verify RX Benefits/Reconcile Disp Completed if allowed: Yes Family History Updated: Yes MyChart Offered: Yes Immunizations Up to Date: Yes Roxy Flynn PMO PROJECT MANAGER documented in this encounter Plan of Treatment Not on filedocumented as of this encounter Procedures Procedure Name Priority Date/Time Associated Diagnosis Comme nts XR CHEST 2 VIEWS Routine 01/23/2012 11:49 AM Right-sided chest Results for this CDT wall pain procedure are i n the results section. documented in this encounter Results X-ray Chest 2 vws* (01/23/2012 11:49 AM CDT) Anatomical Region Laterality Modality Chest Other Specimen (Source) Anatomical Collection Method Collection Time Re ceived Time Location / / Volume Laterality 01/23/2012 11:49 AM CDT Impressions 01/23/2012 12:17 PM CDT CHEST, PA ??AND LATERAL ?? January 23, 2012 11:49:00 AM ?? HISTORY: ??RIGHT-SIDED CHEST WALL PAIN,W ith right rib views, COMPARISON: None. FINDINGS: Heart and lungs appear normal. IMPRESSION: Negative chest. Ismael Perez MD IMG DIAGNOSTIC IMAGING ORDER PHILIP documented in this encounter Visit Diagnoses Diagnosis Right-sided chest wall pain - Primary Painful respiration documented in this encounter Care Teams Residence Hall Director Relationship Specialty Start Date End Date Ismael Perez MD PCP - General Family Practice 01/23/12 10/28/12 Adrian Mills MD PCP - General Family Practice 10/29/12 documented as of this encounter
--- OUTSIDE RECORDS SUMMARY | 2022-06-18 15:57 | XMS_ITS | Encounter Summary ---
:1965 Author Organization [place] Address [facility] [place] [address] Care Team Providers Name Role Phone Adrian Mills MD Primary Care Provider [phone] Encounter Details Date Type Department Care Team Description 02/05/[address] [facility] Shirley Aragon LP Adjustment disorder Services 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 Progress Note Client Name: Adam Campbell Date: Service Type: Individual Session Start Time: 11:30 Session End Time: 12:00 Session Length: 20 - 30 Session #: 7 Attendees: Client Treatment Plan 12-31-12 PHQ-9 1 on 01-01-13 LIBORIO-7 8 on 01-01-13 DATA Reviewed homework: client has had a good talk with his . Explored symptom management. Feels the sessions have been helpful and that he has hope. Has room for self care. Treatment Objective(s) Addressed in This Session: will develop coping/problem-solving skills to facilitate more adaptive adjustment Progress on / Status of Treatment Objective(s) / Homework: Satisfactory progress - ACTION (Actively working towards change); Intervened by reinforcing change plan / affirming steps taken Intervention: CBT 90-day Treatment Plan review completed: Yes Current Stressors / Issues: interpersonal Medication Review: No current psychiatric medications prescribed (client decided not to take the SSRI) Medication Compliance: NA Changes in Health Issues: No Chemical Use Review: Substance Use: Chemical use reviewed, no active concerns identified Tobacco Use: No current tobacco use. ASSESSMENT: Current Emotional / Mental Status (status of significant symptoms): Risk status (Self / Other harm or suicidal ideation) [...] Good Collateral Reports Completed: LIBORIO-7 and PHQ-9 PLAN: (Homework, other) Continue using mood and symptom thermometers for feedback Past hw None- collateral visit Past hw Implement 2 [...] Primary documented in this encounter Care Teams Tobacco Warehouse Manager Relationship Specialty Start Date End Date Adrian Mills MD PCP - General Family Practice 10/29/12 documented as of this encounter
--- OUTSIDE RECORDS SUMMARY | 2022-06-18 15:57 | XMS_ITS | Encounter Summary ---
:1965 Author Organization [place] Address [address] [facility] [place] [address] Care Team Providers Name Role Phone Adrian Mills MD Primary Care Provider [phone] Reason for Visit (Routine) - Closed Specialty Diagnoses / Procedures Referred By Contact Refer red To Contact Radiology / Radiology. Diagnoses EPIC Rh Ultrasound Procedures US TESTICULAR/SCROT W [facility] [address] [place] [address] Phone: Fax: Referral ID Status Reason Start Date Expiration Date Visits Requ ested Visits Authorized [id number] Closed 07/26/2013 07/26/2014 1 1 Encounter Details Date Type Department Care Team Description 07/30/2013 Hospital Encounter [facility] Sonali Clark ass, scrotum [facility] MD Indu [address] [facility] [address] [place], [place] [phone] Social History Tobacco Use Types Packs/Day Years Used Date Never Smoker Smokeless Tobacco: Never Used Alcohol Use Standard Drinks/Week Comments No 0 (1 standard drink = 0.6 oz pure alcoho l) Sex Assigned at Date Recorded Male 01/07/2021 5:29 PM CDT documented as of this encounter Medications at Time of Discharge Medication Sig Dispensed Refills Start Date End Date amoxicillin-clavulanate Take 1 tablet by 20 tablet 0 201210/02/2013 (AUGMENTIN) 500-125 MG mouth 2 times daily per tabletIndications: Acute otitis media, left ranitidine (ZANTAC) 300 Take 1 tablet by 30 tablet 1 201202/11/2014 MG tabletIndications: mouth At Bedtime. GERD (gastroesophageal reflux disease) documented as of this encounter Plan of Treatment Not on filedocumented as of this encounter Procedures Procedure Name Priority Date/Time Associated Comments Diagnosis US TESTICULAR AND Routine 07/30/2013 1:21 PM Mass, scrotum Res ults for this SCROTUM WITH DOPPLER SUPERVISOR ELECTRONIC TESTING procedu re are in LIMITED the results section. documented in this encounter Results US Testicular & Scrotum w Doppler Ltd (07/30/2013 1:21 PM SUPERVISOR ELECTRONIC TESTING) Anatomical Region Laterality Modality Abdomen/Pelvis Ultrasound Specimen (Source) Anatomical Location Collection Method / Collectio n Time Received Time / Laterality Volume Impressions 07/30/2013 2:30 PM SUPERVISOR ELECTRONIC TESTING IMPRESSION: 1. Echogenic focus in the left epididymi s in the region of the patient's palpable lump which may repres ent a focal area of epididymitis or possibly hemorrhagic epi didymal cyst. 2. Both testicles are normal. 3. Remainder of the scan is unremarkable . HALEY YTAES MD Narrative 07/30/2013 2:30 PM SUPERVISOR ELECTRONIC TESTING TESTICULAR ULTRASOUND 07/30/2013 1:21 PM HISTORY: Left-sided lump. COMPARISON: None. TECHNIQUE: Doppler waveform analysis per formed. FINDINGS: Both testicles are normal in s ize and contour with the right measuring 4.3 x 3.0 x 1.9 cm and the lef t 4.5 x 3.1 x 1.5 cm. Both testicles have normal color flow and ech ogenicity without evidence of torsion or mass. Right epididymis is nor mal. Prominent echogenic area in the left epididymis in the region of the patient's palpable lump which could represent a focal area of ep ididymitis or hemorrhagic epididymal cyst. The left epididymis is normal. No hydrocele or varicocele identified on either side. Re mainder of the scan is unremarkable. Procedure Note Haley Yates MD - 07/30/2013F ormatting of this note might be different from the original. TESTICULAR ULTRASOUND 07/30/2013 1:21 PM HISTORY: Left-sided lump. COMPARISON: None. TECHNIQUE: Doppler waveform analysis per formed. FINDINGS: Both testicles are normal in s ize and contour with the right measuring 4.3 x 3.0 x 1.9 cm and the lef t 4.5 x 3.1 x 1.5 cm. Both testicles have normal color flow and ech ogenicity without evidence of torsion or mass. Right epididymis is nor mal. Prominent echogenic area in the left epididymis in the region of the patient's palpable lump which could represent a focal area of ep ididymitis or hemorrhagic epididymal cyst. The left epididymis is normal. No hydrocele or varicocele identified on either side. Re mainder of the scan is unremarkable. IMPRESSION IMPRESSION: 1. Echogenic focus in the left epididymi s in the region of the patient's palpable lump which may repres ent a focal area of epididymitis or possibly hemorrhagic epi didymal cyst. 2. Both testicles are normal. 3. Remainder of the scan is unremarkable . HALEY YATES MD Sonali Clark MD IMG US ORDERABLES documented in this encounter Visit Diagnoses Diagnosis Mass, scrotum Other specified disorder of male genital organs documented in this encounter Care Teams Search Lead Relationship Specialty Start Date End Date Adrian Mills MD PCP - General Family Practice 10/29/12 documented as of this encounter
[2022-06-18 15:58] LABS: C Reactive Protein* 3.6 mg/dL (0.5-1.0); Lipase* < 10 U/L (23-300)
--- OUTSIDE RECORDS SUMMARY | 2022-06-18 15:59 | XMS_ITS ---
:[address] 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 Pain Neuropathic 08/12/2021 Anxiety Generalized Disorder 03/29/2021 Cholangitis Acute 03/20/2021 Malnutrition Severe Protein-Calorie 03/20/2021 Hypoalbuminemia 03/20/2021 Anemia 03/20/2021 Headache Unspecified 03/19/2021 Constipation 03/19/2021 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 on 04/06/2022 Gastroesophageal Reflux Disease NOS 10/31/2012 Murmur Heart 11/28/2010 Overview: Echocardiogram done on 03/20/2008. Adjustment Disorder Mixed Reaction Current Oncology Plans Gemcitabine Every 28 Days ( GI )Plan Start Date:06/12/2022 Plan Provider:Maria Del Rosario Gomez APRN, C.NValerie., M.S. Linked Problems Malignant Neoplasm Of Pancreas (HCC)Seco ndary Malignant Neoplasm Liver (HCC) Treatment Medications Current Day (Day 8, Cycle 1 Next Day ( Day 15, Cycle 1 - - Planned for 06/22/2022) Planned for ) gemcitabine gemcitabine 1,800 mg in NaCl gemcitabine 1,800 mg in NaCl (GEMZAR)gemcitabine (GEMZAR) 0.9% 297.34 mL IVPB (GEMZAR) 0. 9% 297.34 mL IVPB (GEMZAR) IVPB (GEMZAR) Other Current Plans VASCULAR ACCESS PATENCY - IMPLANTED VASCULAR ACCESS DEVICE (IVAD) VENOUS NON-VALVEDPlan Start Date:12/22/2021 Linked Problems Bacteremia Treatment Medications No medications scheduled. Past Plans Hematology / Oncology Treatment 1 Plan Name Start Discontinue Treatment Discontinue Plan Cycles Date Date Medications Reason Provider [facility] CRDF-001 ( 06/07/2022 fluorouraciL Progression Jochum, 16 of 28 Onvansertib 1 (ADRUCIL)fluoro Jesse A, cy cles (Days 1-5) / uracil P.A.-C., started Fluorouracil / (ADRUCIL) IVPB M.S. Leucovorin / in 230 mL Nanoliposomal (c-series) Irinotecan ) (ADRUCIL)irinot ecan liposomal (ONIVYDE)irinot ecan liposomal (ONIVYDE) IVPB in D5W 500 mL (CAMPTOSAR)leuc ovorin IVPB in NaCl 0.9% 250 mL (20 mg/mL)Research IRB [id number] onvansertib (PCM-075) [facility] CRDF-001 ( 08/27/20 11/24/2021 fluorouraciL Unlisted Deborah Murray of Onvansertib 21 (ADRUCIL)fluoro Wee, cy cles (Days 1-10) / uracil M.B.B.S. starte d Fluorouracil / (ADRUCIL) IVPB Leucovorin / in 102 mL Nanoliposomal (ADRUCIL)fluoro Irinotecan ) uracil (ADRUCIL) IVPB in 230 mL (c-series) (ADRUCIL)irinot ecan liposomal (ONIVYDE)irinot ecan liposomal (ONIVYDE) IVPB in D5W 500 mL (CAMPTOSAR)leuc ovorin IVPB in NaCl 0.9% 250 mL (20 mg/mL)Research IRB [id number] onvansertib (PCM-075) Gemcitabine ( 03/12/2021 gemcitabine Therapy Ma, Deborah 1 of 1 with Radiation ) 1 (GEMZAR)gemcita Complete Wee, cycle bine (GEMZAR) M.B.B.S. starte d IVPB (GEMZAR) Gemcitabine / 10/16/2020 01/15/2021 gemcitabine Change in Ma, Deborah 1 of 4 PACLitaxel (GEMZAR)gemcita Level of Care Wee, cycles Protein - Bound bine (GEMZAR) M.B.B.S. started IVPB (GEMZAR)PACLita xel protein-bound (ABRAXANE)PROTE IN-BOUND PACLItaxel (ABRAXANE) Radiation Treatments Plan Last Treated Elapsed Days Fractions Prescribed Prescribed Total On Treated Fraction Dose Dose F1 Pancreas 03/02/2021 36 25 of 25 200 cGy 5,000 cGy Reference Point Last Treated On Elapsed Days Session Dose Total Dos e [id number] 03/02/2021 36 200 cGy 5,000 cGy Lifetime Dose Tracking Chemical Lifetime Dose Automatic Entry Manual Entry Radiation 1,627.73 mGy 1,627.73 mGy 0 mGy Fluoro Time 114.6 minutes 114.6 minutes 0 minutes DAP (uGy-m2) 5,318.27 uGy-m2 5,318.27 uGy-m2 0 uGy-m2 Resolved Problems Problem Noted Date Resolved Date Vomiting 03/19/2021 03/20/2021 Obstruction Intestinal 12/11/2020 03/19/2021 Hyponatremia 11/05/2020 03/19/2021 Sepsis 10/30/2020 12/31/2020 Hypotension 10/23/2020 12/31/2020 Visual Hallucinations 10/23/2020 12/31/2020 Acute Pancreatitis With Infected Necrosis Unspecified 202012/31/2020 Obstruction Common Bile Duct 10/01/2020 03/20/2021 Pleural Effusion In Other Conditions Classified Elsewhere 03/19/2021 Abscess Intra Abdominal 09/23/2020 12/31/2020 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
--- OUTSIDE RECORDS SUMMARY | 2022-06-18 15:59 | XMS_ITS | Encounter Summary ---
:1965 Author Organization [facility] Address [address] [place] [id number] Care Team Providers Name Role Phone Elsewhere, Pcp Primary Care Provider Unavailable Encounter Details Date Type Department Care Team Description 06/13/2022 Orders Only Department of Oncology Maria Del Rosario Gomez Se Malignant Neoplasm Liver (HCC) (Primary Dx); in [facility], GUERO, C.N.P., Malignant Neoplasm Of Pancreas (HCC) [facility] [address] [facility] [address] [place] [id number] [phone] Social History Tobacco Use Types Packs/Day Years Used Date Smoking Tobacco: Never Smokeless Tobacco: Never Alcohol Use Standard Drinks/Week Comments Never 0 (1 standard drink = 0.6 oz pure alcoho l) Alcohol Habits Answer Date Recorded How often do you have a drink containing alcohol? Never 01/15/2021 How many drinks containing alcohol do you have on a typical Not asked day when you are drinking? How often do you have six or more drinks on one occasion? No t asked Comment: Not asked Social Isolation Answer Date Recorded In a typical week, how many times do you talk on the phone O nce a week 01/15/2021 with family, friends, or neighbors? How often do you get together with friends or relatives? Nev er 01/15/2021 How often do you attend yazidi or yazidism services? Never 01/15/2021 Do you belong to any clubs or organizations such as yazidi N o 01/15/2021 groups, unions, fraternal or athletic groups, or school groups? How often do you attend meetings of the clubs or Never 01/15/2021 organizations you belong to? Are you now , , , , never Mar ried 01/15/2021 or living with a partner? Physical Activity Answer Date Recorded On average, how many days per week do you engage in moderate to 0 days 01/15/2021 strenuous exercise (like walking fast, running, jogging, dancing, swimming, biking, or other activities that cause a light or heavy sweat)? On average, how many minutes do you engage in exercise at th is 0 min 01/15/2021 level? Stress Answer Date Recorded Do you feel stress - tense, restless, nervous, or To some ex tent 01/15/2021 anxious, or unable to sleep at night because your mind is troubled all the time - these days? Financial Resource Strain Answer Date Recorded How hard is it for you to pay for the very basics like Not v [place] hard 01/15/2021 food, housing, medical care, and heating? Food Insecurity Answer Date Recorded Within the past 12 months, you worried that your food would Never true 01/15/2021 run out before you got money to buy more. Within the past 12 months, the food you bought just didn't N ever true 01/15/2021 last and you didn't have money to get more. Transportation Needs Answer Date Recorded In the past 12 months, has lack of transportation kept you f rom No 01/15/2021 medical appointments or from getting medications? In the past 12 months, has lack of transportation kept you f rom No 01/15/2021 meetings, work, or getting things needed for daily living? Housing Stability Answer Date Recorded In the last 12 months, was there a time when you were not ab le No 01/15/2021 to pay the mortgage or rent on time? In the last 12 months, how many places have you lived? 1 01/15/2021 In the last 12 months, was there a time when you did not hav e a No 01/15/[address] or slept in a prison (including now)? Education Answer Date Recorded What is the highest level of school you have completed or 12 th grade 01/15/2021 the highest degree you have received? 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 [address] [place] [address] [phone] (Mj godoy) 06/22/2022 Infusion Oncology Maria Del Rosario Gomez APRN, C.N .P., M.S. [address] [place] [phone] (Mj godoy) 06/29/2022 Lab Laboratory Medicine Maria Del Rosario Gomez AP RN, C.N.P., M.S. [address] [place] [address] [phone] (Mj godoy) 06/29/2022 Infusion Oncology Maria Del Rosario Gomez APRN, C.N .P., M.S. [address] [place] [address] [phone] (Mj godoy) documented as of this encounter Visit Diagnoses Diagnosis Secondary Malignant Neoplasm Liver (HCC) - Primary Malignant Neoplasm Of Pancreas (HCC) documented in this encounter Additional Health Concerns Assessment Noted Time PHQ-9 Depression Total Score: 2 10/01/2021 10:34 AM CS T documented as of this encounter Care Teams Senior Sql Developer Relationship Specialty Start Date End Date Elsewhere, Pcp PCP - General Family Medicine 08/12/20 documented as of this encounter
--- OUTSIDE RECORDS SUMMARY | 2022-06-18 15:59 | XMS_ITS | Encounter Summary ---
:1965 Author Organization [facility] Address [address] [place] [address] Care Team Providers Name Role Phone Elsewhere, Pcp Primary Care Provider Unavailable Reason for Visit Reason Comments Consult Outpatient (Routine) - Closed Specialty Diagnoses / Referred By Contact Referred To Contact Procedures Radiology / Diagnoses Malignant Neoplasm Of Pancreas (HCC) Secondary Malignant Neoplasm Liver (HCC) [facility] GUERO, C.N.P., M .S. [address] [place] [address] Referral ID Status Reason Start Date Expiration Date Visits Requ ested Visits Authorized [id number] Closed 06/07/2022 06/07/2023 1 1 Encounter Details Date Type Department Care Team Description 06/08/2022 Comprehensive Visit Department of Veena Ricci Neoplasm Of Pancreas (HCC); Radiology, Melissa Jackson APRN, C.N.P. Secondary Malignant Neoplasm Liver (HCC) ; [place], in [address] [facility] Portal Vein Thrombosis [facility] [id number] [address] [facility] [phone] [place], [place] (Work) [phone] Social History Tobacco Use Types Packs/Day Years [...] er 01/15/2021 How often do you attend jew or buddhist services? Never 01/15/2021 Do you belong to any clubs or organizations such as jew N o 01/15/2021 groups, unions, fraternal or [...] place to sleep or slept in a usp (including now)? Education Answer Date Recorded What is the highest level of school you have completed or 12 th grade 01/15/2021 the highest degree you have received? 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 - 06/08/2022 11:00 AM CDT Vascular/Interventional Radiology Consultation Note SUBJECTIVE REASON FOR CONSULT Referring Provider: Maria Del Rosario Gomez APRN, C.N.P., M.S. Chief Complaint/Reason for Consult: Consult HISTORY OF PRESENT ILLNESS Adam Campbell is a 57 y.o. male who presents with a significant history of metastatic pancreatic cancer with known liver metastasis. He has history of cholangitis, biliary strictures s/p stenting, and pancreatitis following ERCP. He has completed multiple rounds of chemotherapy and radiation with planned therapies ongoing. 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 Oncology has asked if portal vein stenting would be warranted. After reviewing images, Dr. Harrison feels it would be beneficial to perform portal vein stentingto avoid future side effects from portal vein compression. Mr. Campbell is planning to restart chemother apy next week. Other past medical history includes GERD, anxiety, peripheral neuropathy, and chronic abdominal pain. Patient presents to clinic today accompanied by to discuss full details of the procedure. Patient denies shortness of breath or chest pain, fever or chills, nausea or vomiting. Denies history of diabetes. No anticoagulation therapy currently. Pertinent labs reviewed and updated below. EKG on file, normal. History reviewed: allergies, current medications, family history, medical history, social history, surgical history, and problem list Current Outpatient Medications on File Prior to Visit Medication Sig Dispense Refill baclofen (LIORESAL) 10 mg tablet Take 1 tablet (10 mg total) by mouth daily. 90 tablet 3 Creon 24,000-76,000 -120,000 unit capsule TAKE 1 TO 3 CAPSULES BY MOUTH THREE TIMES DAILY WITH MEALS 120 capsule 2 gabapentin (NEURONTIN) 300 mg capsule Take 3 capsules (900 mg total) by mouth at bedtime. 90 capsule 1 heparin 100 unit/mL syringe 5 mL (500 Units total) by intra-catheter route once as needed for line care for up to 1 dose. Flush IV line AFTER 0.9% Sodium Chloride flush 60 mL 3 heparin 100 unit/mL syringe 5 mL (500 Units total) by intra-catheter route once as needed for line care for up to 1 dose. Flush IV line AFTER 0.9% Sodium Chloride flush 60 mL 3 heparin 100 unit/mL syringe 5 mL (500 Units total) by intra-catheter route once as needed for line care for up to 1 dose. Flush IV line AFTER 0.9% Sodium Chloride flush 60 mL 3 HYDROmorphone (DILAUDID) 2 mg tablet Take 2-3 tablets (4-6 mg total) by mouth every 4 (four) hours as needed for severe pain or score 7-10 of 10 or moderate pain or score 4-6 of 10 Indication: ChronicPain/Nonacute Pain. 30 tablet 0 lidocaine-prilocaine (EMLA) 2.5-2.5 % cream Apply 1 application topically as needed for pain. Applyto port site. 30 g 3 LORazepam (ATIVAN) 0.5 mg tablet Take 2-4 tablets (1-2 mg total) by mouth every 6 (six) hours as needed for anxiety. 60 tablet 2 medical cannabis capsule Take by mouth. THC component: CBD component: OLANZapine (ZyPREXA) 5 mg tablet Take 1 tablet (5 mg total) by mouth at bedtime. 30 tablet 3 ondansetron (ZOFRAN) 8 mg tablet Take 1 tablet (8 mg total) by mouth every 8 (eight) hours as needed for nausea or vomiting. 30 tablet 3 ondansetron ODT (ZOFRAN-ODT) 8 mg disintegrating tablet Dissolve 1 tablet (8 mg total) in the mouthevery 8 (eight) hours as needed for nausea or vomiting. 30 tablet 3 pantoprazole (PROTONIX) 40 mg EC tablet Take 1 tablet (40 mg total) by mouth 2 (two) times a day before breakfast and dinner. 180 tablet 0 polyethylene glycol (MIRALAX) 17 gram powder packet Take 1 packet (17 g total) by mouth 2 (two) times a day. Dissolve each 17 g dose in 240 mLs (8 ounces) of beverage. sennosides-docusate sodium (SENOKOT-S) 8.6-50 mg per tablet Take 3 tablets by mouth 2 (two) times aday. traZODone (DESYREL) 50 mg tablet Take 1-2 tablets (50-100 mg total) by mouth at bedtime. Take 50 mgdaily at bedtime for at least 7 days. If ineffective, may trial increase to 100 mg daily at bedtime.30 tablet 1 No current facility-administered medications on file prior to visit. REVIEW OF SYSTEMS Pertinent items as detailed in HPI. OBJECTIVE There were no vitals filed for this visit. PHYSICAL EXAMINATION Constitutional General: He is not in acute distress. Pulmonary Effort: Pulmonary effort is normal. Abdominal Palpations: Abdomen is soft. Skin General: Skin is warm and dry. Neurological Mental Status: He is alert and oriented to person, place, and time. DIAGNOSTICS Lab Results Component Value Date/Time HGB 10.3 (L) 06/01/2022 08:34 AM HGB 12.5 (L) 08/05/2020 08:03 AM HCT 32.0 (L) 06/01/2022 08:34 AM HCT 41.5 07/29/2020 11:42 PM PLT 165 06/01/2022 08:34 AM PLT 244 07/29/2020 11:42 PM LEUKOCYTES Negative 09/12/2020 06:08 PM INR 1.0 08/22/2021 09:22 AM INR 1.0 08/16/2021 09:22 AM APTT 26 10/26/2020 04:18 AM , Lab Results Component Value Date/Time ALBUMIN 3.6 06/01/2022 08:34 AM ALBUMIN 3.3 (L) 03/26/2021 04:15 PM ALBUMIN 2.8 (L) 08/05/2020 08:03 AM ALKPHOS 289 (H) 06/01/2022 08:34 AM ALKPHOS 270 (H) 03/26/2021 04:15 PM ALT 51 06/01/2022 08:34 AM AST 19 06/01/2022 08:34 AM BILIDIR <0.2 10/25/2021 07:42 AM BILIDIR 0.3 (H) 03/26/2021 04:15 PM BILIDIR 2.9 (H) 03/19/2021 07:55 AM BILITOT 0.7 06/01/2022 08:34 AM BUN 9 06/02/2022 05:00 AM BUN 11 06/01/2022 08:34 AM CREATININE 0.76 06/02/2022 05:00 AM CREATININE 0.77 06/01/2022 08:34 AM EGFRNONBLKAA >90 04/19/2022 08:43 AM EGFRNONBLKAA 88 01/25/2022 01:19 PM 06/01/2022 EXAM: CT ABDOMEN PELVIS WITH IV CONTRAST COMPARISON: 03/08/2022 FINDINGS: Poorly defined infiltrative soft tissue mass arising from the neck and body of the pancreas with stable encasement of the proximal celiac artery, common hepatic artery, SMA, and splenic artery. There is also encasement of the upper SMV which has gotten slightly worse since the previous exam (series 3 image 150). Extensive upper abdominal collaterals. Stable probable hemangioma in segment 7. No findings worrisome for hepatic metastases. Trace free fluid in the deep pelvis is similar to the previous exam. There are multiple prominent mesenteric lymphnodes however there are no focal peritoneal nodules. Metallic biliary stent with stable bile duct dilatation and pneumobilia. Atrophic body and tail of the pancreas. Cystogastrostomy tubes extending from the stomach to the anterior left pararenal fascia where there is soft tissue thickening but no fluid collection. Left gonadal vein embolization coils. This examination was performed in conjunction with a CT of the chest, which will be reported separately. IMPRESSION: Increased tumor encasement of the upper SMV with subsequent progression of narrowing. IMPRESSION / PLAN #1 Malignant Neoplasm Of Pancreas (HCC) #2 Secondary Malignant Neoplasm Liver (HCC) Mr. Campbell is a 57 y.o. male who presents with a significant history of metastatic pancreatic cancer with known liver metastasis. He has history of cholangitis, biliary strictures s/p stenting, and pancreatitis following ERCP. He has completed multiple rounds of chemotherapy and radiation with planned t herapies ongoing. 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 Oncology has asked if portal vein stenting would be warranted. Afterreviewing images, Dr. Harrison feels it would be beneficial to perform portal vein stenting to avoid future side effects from portal vein compression. Mr. Campbell is planning to restart chemotherapy next week. Other past medical history includes GERD, anxiety, peripheral neuropathy, and chronic abdominal pain. Discussed portal venogram and stenting via transhepatic approach in detail. Risks, including infection, bleeding and biliary duct injury were discussed. Signed consent obtained. Moderate sedation will be utilized. Ceftriaxone and flagyl ordered for antibiotic prophylaxis. He will be monitored for 1-2 hours postprocedure. PLAN -Present to [facility] desk at 10:30 a.m. on 06/09/2022 for transhepatic portal venogram +/- stenting with Dr. Harrison. -Patient will be NPO after midnight. Patient to take all other routine morning medication at least 1hour prior to report time. -Procedure planned as an outpatient with same day discharge barring no complications developed. Patient states his or daughter will accompany him. -Preprocedure orders signed and held. -Discussed recommendation for aspirin 81 mg daily following stenting of portal vein. -Follow up with Oncology as directed. CONSENT This procedure has been fully reviewed with the patient and written informed consent has been obtained. I personally spent >50% face to face with the patient in counseling and discussion and/or coordination of care as described above. documented in this encounter Plan of Treatment Upcoming Encounters Date Type Specialty Care Team Description 06/22/2022 Lab Laboratory Medicine Maria Del Rosario Gomez AP RN, C.N.P., M.S. [address] [place] [phone] (Mj godoy) 06/22/2022 Infusion Oncology Maria Del Rosario Gomez APRN, Remy.N .P., M.S. [address] [place], [place] [phone] (Mj godoy) 06/29/2022 Lab Laboratory Medicine Maria Del Rosario Gomez AP RN, C.N.P., M.S. [address] [place], [place] [phone] (Mj godoy) 06/29/2022 Infusion Oncology Maria Del Rosario Gomez APRN, C.N .P., M.S. [address] [place], [place] [phone] (Mj godoy) documented as of this encounter Visit Diagnoses Diagnosis Malignant Neoplasm Of Pancreas (HCC) Secondary Malignant Neoplasm Liver (HCC) Portal Vein Thrombosis documented in this encounter Additional Health Concerns Assessment Noted Time PHQ-9 Depression Total Score: 2 10/01/2021 10:34 AM CS T documented as of this encounter Care Teams Sales And Marketing Representative Relationship Specialty Start Date End Date Elsewhere, Pcp PCP - General Family Medicine 08/12/20 documented as of this encounter
--- OUTSIDE RECORDS SUMMARY | 2022-06-18 15:59 | XMS_ITS | Encounter Summary ---
:1965 Author Organization [facility] Address [address] [place] [address] Care Team Providers Name Role Phone Elsewhere, Pcp Primary Care Provider Unavailable Reason for Visit Reason Comments Abdominal Pain Auth/Cert Specialty Diagnoses / Procedures Referred By Contact Refer red To Contact Diagnoses Malignant Neoplasm Of Pancreas Body (HCC) Abdominal Pain Procedures ETU Referral ID Status Reason Start Date Expiration Date Visits Requ ested Visits Authorized [id number] 1 1 Encounter Details Date Type Department Care Team Description 06/01/2022 - Hospital Encounter [facility] Eliza Soto P.A.-C. [address] [place] [id number] Abdominal Pain (Primary Dx); 06/03/2022 [facility], Vishal Mays M.D. [address] [place] [phone] Malignant Neoplasm Of Pancreas Body (HCC ) [facility], Fourth Floor [address] [place] [address] Social History Tobacco Use Types Packs/Day Years [...] er 01/15/2021 How often do you attend hinduism or christianity services? Never 01/15/2021 Do you belong to any clubs or organizations such as hinduism N o 01/15/2021 groups, unions, fraternal or [...] place to sleep or slept in a nursing home (including now)? Education Answer Date Recorded What is the highest level of school you have completed or 12 th grade 01/15/2021 the highest degree you have received? 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 - 06/03/2022 12:14 PM CDT DISCHARGE SUMMARY BRIEF OVERVIEW Hospital: [facility] Discharge Provider: Vishal Ac M.D. Primary Team: [facility] Primary Care Providers: Elsewhere, Pcp (General) No address on file Primary Care Provider Phone Number: None Primary Care Provider Fax Number: None Admission Date: 06/01/2022 Discharge Date: 06/03/2022 PRINCIPAL DIAGNOSIS Abdominal Pain SECONDARY DIAGNOSES Principal Problem: Abdominal Pain Active Problems: Malignant Neoplasm Of Pancreas (HCC) Portal Vein Thrombosis Thrombosis Splenic Vein Acute Pain Cancer Associated Malnutrition Severe Protein-Calorie (HCC) Pain Neuropathic Secondary Malignant Neoplasm Liver (HCC) Dehydration Resolved Problems: * No resolved hospital problems. * DISCHARGE DISPOSITION Home or Self Care [1] ACTIVE ISSUES REQUIRING FOLLOW UP NUTRITION Nutrition dismissal summary completed by: Nikki Pierce RDN Date Completed: 06/02/2022 Phone contact: Height: 172.7 cm Weight: 68.1 kg Admission Weight: 68.1 kg BMI (Calculated): 22.8 kg/m?? Diet Order: General Estimated Needs: Total Calorie Needs: 1800 calories/day Method to Estimate Energy Needs: Ramirez-Creswell (Basal to Basal + 20%) Weight Used for Equation Calculations: 68.1 kg Total Protein Needs: 82 - 102 grams/day Method to Estimate Protein Needs (g/kg): 1.2 - 1.5 gm/kg Weight Used to Calculate Protein Needs (Kg): 68.1 kg Nutrition Discharge Plan: Patient was assessed as severely malnourished during this hospitalization based upon the ASPEN criteria. 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 Oncology 06/10/2022 2:30 PM RST INTAKE VISIT POD C 03 Admitting/Central Scheduling 06/15/2022 8:00 AM ONC CHAIR CHEMO 41 [facility]GO; LAB BLOOD [facility] 10 E Laboratory Medicine 06/15/2022 10:10 AM Maria Del Rosario Gomez APRN, C.N.P., M.S. Oncology 06/15/2022 11:00 AM ONC CHAIR CHEMO 17 [facility] Oncology 06/29/2022 9:00 AM ONC CHAIR CHEMO 39 [facility]GO; LAB BLOOD [facility] 10 E Laboratory Medicine 06/29/2022 10:10 AM Maria Del Rosario Gomez APRN, C.N.P., M.S. Oncology 06/29/2022 11:00 AM ONC CHAIR CHEMO 17 [facility] Oncology 07/22/2022 2:30 PM RST INTAKE VISIT POD C 03 Admitting/Central Scheduling 07/27/2022 8:00 AM ONC CHAIR CHEMO 41 [facility]GO; LAB BLOOD [facility] 10 E Laboratory Medicine For appointment details refer to your Patient Appointment Guide. TEST RESULTS PENDING AT DISCHARGE Pending Labs None DETAILS OF HOSPITAL STAY REASON FOR ADMISSION Malignant Neoplasm Of Pancreas Body (HCC) Abdominal Pain HOSPITAL COURSE Mr. Adam Campbell is a 57 y.o. male with metastatic pancreatic adenocarcinoma with known livermetastasis complicated by several episodes of acute cholangitis, biliary strictures status post stenting and exchange, and pancreatitis following ERCP who is a part of a research study with irinotecan,5- FU and onvansertib since Aug 2021 (last chemo 05/18) who presents with increasing abdominal pain. Comorbidities include peripheral neuropathy, portal vein thrombosis, GERD, anxiety, and cancer related pain. In the morning of 06/01, patient been experiencing progressive abdominal pain, nausea, vomiting increased bowel gas. His pain was not responding to his home a pain regiment. He has an oncology appointment that day. Prior to his oncology visit, patient underwent CT abdomen pelvis that showed progressed soft tissue encasing the SMV and celiac arteries concerning for vascular insufficiency. CT chest showed multiple small pulmonary and pleural nodules increased in size suspicious for metastatic disease. His outpatient labs were notable for hemoglobin of 10.3, platelets 165, neutrophils 3.05, potassium 3.4, and alk-phos 289. The patient's primary oncologist sent him to [facility] for further evaluation. In the ED, patient was vitally stable with blood pressure 132/84, heart rate 69, afebrile, and saturating 100% on room air. Due to his increasing pain, he was admitted and Oncology for further evaluation and management. During admission, patient's abdominal pain was improved. His pain was controlled with IV and p.o. Dilaudid, gabapentin, and trazodone. Palliative Care was consulted helps with pain management. GI was consulted to help evaluate patient's abdominal pain and he underwent EGD and ERCP on 06/03 that showed 2 patent cystgastrostomy stents, known moderate duodenal stenosis from underlying pancreatic malignancy, patent prior biliary stents, and biliary sludge that was cleared out. Patient tolerated the procedure well and continued to have improved abdominal pain. Patient also underwent ultrasound with Doppler of the mesenteric arteries 06/02 that showed widely patent mesenteric arteries specifically the SMA, SOPHY, and celiac arteries. On dismissal, patient was vitally stable and his abdominal pain was back to his baseline. He was discharged home with Dilaudid 4-6 mg Q4H PRN for pain and he will establish with the palliative care team. He was discharged to home and will follow-up in oncology clinic on 06/06/2022. CONSULTS ORDERED DURING THIS ADMISSION IP CONSULT TO DIETITIAN IP CONSULT TO PALLIATIVE CARE IP CONSULT TO GASTROENTEROLOGY CONDITION AT DISCHARGE stable Discharge instructions were provided to the patient and caregiver(s). documented in this encounter Discharge Instructions Discharge InstructionsLaila Hernandez - 06/02/2022 8:45 AM CDT You were discharged from the [facility] Oncology [facility] Service. Please identify this service name if youcall with questions after hospitalization. Discharge Instr - Nikki Ramirez RDN - 06/02/2022 2:59 PM CDT NUTRITION Nutrition dismissal summary completed by: Nikki Pierce RDN Date Completed: 06/02/2022 Phone contact: Height: 172.7 cm Weight: 68.1 kg Admission Weight: 68.1 kg BMI (Calculated): 22.8 kg/m?? Diet Order: General Estimated Needs: Total Calorie Needs: 1800 calories/day Method to Estimate Energy Needs: Ramirez-Creswell (Basal to Basal + 20%) Weight Used for Equation Calculations: 68.1 kg Total Protein Needs: 82 - 102 grams/day Method to Estimate Protein Needs (g/kg): 1.2 - 1.5 gm/kg Weight Used to Calculate Protein Needs (Kg): 68.1 kg Increase nutrition intake with small, frequent meals Medical food supplement(s) of choice Vitamin-mineral supplementation documented in this encounter Medications at Time of Discharge Medication Sig Dispensed Refills Start Date End Date baclofen (LIORESAL) 10 Take 1 tablet (10 mg 90 tablet 3 03/202208/26/2022 mg tablet total) by mouth daily. medical cannabis Take by mouth. THC component: 0 capsule CBD component: ondansetron (ZOFRAN) 8 Take 1 tablet (8 mg 30 tablet 3 03/1103/21/2023 mg tabletIndications: total) by mouth Malignant Neoplasm Of every 8 (eight) Pancreas (HCC) hours as needed for nausea or vomiting. polyethylene glycol Take 1 packet (17 g 0 021 (MIRALAX) 17 gram total) by mouth 2 powder packet (two) times a day. Dissolve each 17 g dose in 240 mLs (8 ounces) of beverage. sennosides-docusate Take 3 tablets by 0 1 sodium (SENOKOT-S) mouth 2 (two) times 8.6-50 mg per tablet a day. traZODone (DESYREL) 50 Take 1-2 tablets 30 tablet 1 022 mg tablet (50-100 mg total) by mouth at bedtime. Take 50 mg daily at bedtime for at least 7 days. If ineffective, may trial increase to 100 mg daily at bedtime. Creon 24,000-76,000 TAKE 1 TO 3 CAPSULES 120 capsule 2 05/23 -120,000 unit capsule BY MOUTH THREE TIMES DAILY WITH MEALS lidocaine-prilocaine Apply 1 application 30 g 3 2021 (EMLA) 2.5-2.5 % cream topically as needed for pain. Apply to port site. OLANZapine (ZyPREXA) 5 Take 1 tablet (5 mg 30 tablet 3 03/12 mg tablet total) by mouth at bedtime. pantoprazole (PROTONIX) Take 1 tablet (40 mg 180 tablet 0 40 mg EC tablet total) by mouth 2 (two) times a day before breakfast and dinner. gabapentin (NEURONTIN) Take 3 capsules (900 90 capsule 1 05/202206/15/2022 300 mg capsule mg total) by mouth at bedtime. HYDROmorphone Take 2-3 tablets 30 tablet 0 06/03/202206/15 (DILAUDID) 2 mg (4-6 mg total) by tabletIndications: mouth every 4 (four) Chronic Pain/Nonacute hours as needed for Pain severe pain or score 7-10 of 10 or moderate pain or score 4-6 of 10 Indication: Chronic Pain/Nonacute Pain. LORazepam (ATIVAN) 0.5 TAKE 1 TABLET(0.5 10 tablet 2 202106/06/2022 mg tablet MG) BY MOUTH EVERY 6 HOURS NEEDED FOR ANXIETY documented as of this encounter Progress Notes Gil Neumann M.D. - 06/03/2022 1:51 PM CDT [facility] Inpatient Palliative Care Consult Service Progress Note Attestation Patient: Adam Campbell; 57 y.o.male Location: [id number] Date of Service: 06/03/2022 Time of Visit: 10:33 PM CDT Hospital Admission Date: 06/01/2022 12:29 PM Hospital Day: 2 I have seen and evaluated Adam Campbell as part of a collaborative visit for the Inpatient Palliative Care Consult Service interdisciplinary team rounds. The patient's primary responsible clinician for 06/03/2022 is Kimberly Logan APRN/CATHERINE. I have reviewed the pertinent history and discussed the i mpression/plan with my team. I agree with the history, examination, impression, and recommendations as documented in today's note from the primary responsible clinician with notable exceptions/additions below. Impression/Report/Plan: Mr. 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 He is his has multiple sclerosis and his daughter who is running a [employer] called while we were visiting today. Overall he is feeling well enough to go home and his pain is improved with an uptitration of his Dilaudid to 6 mg as well as a decrease in the intervalto 4 hours between doses. Summary of Today's Plan: Likely transition home today with opportunity for outpatient follow up depending on if he would liketo do that. Please review the daily progress note from Kimberly Logan APRN/CATHERINE for a complete summary of our visit, impressions, and treatment plan. Gil Neumann M.D. Kimberly Logan APRN C.N.P., M.S.N. - 06/03/2022 12:22 PM CDT [facility] Palliative Medicine Progress Note Patient: Adam Campbell; 57 y.o.male Location: [address] [place] [address] Date of Service: 06/03/2022 Time of Visit: 12:22 PM CDT Hospital Admission Date: 06/01/2022 12:29 PM Hospital Day: 2 Primary Digital Strategy Specialist: Vishal Ac M.* Primary Care Provider: ELSEWHERE, PCP SUBJECTIVE Reason for Consult: Acute on chronic abdominal pain in the setting of metastatic pancreatic cancer.Help with pain control Subjective Mr. Campbell was seen this morning in collaboration with my Palliative Care colleagues, which included Dr. Gil Neumann. At the time of our visit, Mr. Campbell was found reclined in his hospital bed. He has recently returned from an EGD, and said, I'm just trying to wake up. He denied any distress, and hispain has been well managed without use of PRN opioid. Even after eating, his pain has not worsened. No family was present at the time of our visit. OBJECTIVE Objective Physical Exam: VS: BP 108/81 Pulse (!) 53 Temp 36.5 ??C (Oral) Resp 17 Ht 172.7 cm Wt 68.1 kg SpO2 100% BMI 22.83 kg/m?? I&O: I/O last 3 completed shifts: In: 2320 [P.O.:1120] Out: - I/O this shift: In: 700 Out: - General: 57 yo gentleman recline in hospital bed. In no acute distress. HEENT: Moist mucous membranes, no conjunctival icterus. Respiratory: Unlabored respirations. Neurologic: No gross sensory or motor deficits. No myoclonus. Psychiatric: RASS 0. Medications/Diagnostics: Medications and allergies reviewed. Previous lab and radiology results reviewed. ASSESSMENT / PLAN Impression/Report/Plan Mr. Campbell is a 57 yo gentleman with a history of metastatic pancreatic cancer with lung and liver involvement. He was admitted 06/01/22 as a result of worsening left flank/abdominal pain. Palliative Care has been consulted to assist with pain management. #1 Acute on chronic cancer-related pain #2 Diarrhea #3 Palliative Care Z51.5 #4 Metastatic pancreatic cancer Mr. Campbell has not received a dose of PRN hydromorphone since yesterday morning. Even with eating, his abdominal pain has not worsened. An EGD/ERCP was performed this morning. The 2 gastrostomy stents were found to be patent. The, biliary stents, however, were found to be occluded and subsequently cleared. Additionally, Mr. Campbell was found to have moderate duodenal stenosis likely from underlying pancreatic malignancy. Current working differentials to explain the increased pain Mr. Campbell recently experienced include: 1) venous congestion/relative ischemia from worsening of disease encasing the SMV, or 2) duodenal stenosis/intermittent obstruction. Though his pain has been well controlled without use of PRN hydromorphone, I recommend that he be allowed a range of 4-6mg PO hydromorphone Q4 hours PRN. This dose range will allow him a bit more medication in the event his abdominal pain should worsen again. Though we've not seen Mr. Campbell in our clinic for some time (he has been unable to attend some appointments and Oncology has been writing for his opioid), he does have a palliative care clinic followupappointment pending. I note that Mr. Campbell is to see his oncology provider at the beginning of this coming week. At this juncture, we will defer palliative care outpatient followup to the Oncology team. If our assistance is desired, it can be requested by Oncology. Mr. Campbell shared with us that his has MS, and she receives BUSINESS DEVELOPMENT CONSULT[employer] services in their home. This said, she is still able to drive. 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 He said, The international model conference in in February. I hope I'm alive to attend it. Mr. Campbell spoke very oozivj-me-usptgf in regards to the fact his prognosis is limited as a result of his cancer. He is most concerned about pain management. Daughter Marie Cortes was present via phone for a portion of ourvisit. She asked if palliative care followup was possible in the event Mr. Campbell does not receive additional chemotherapy. I explained that palliative care followup was available. This said, additionalconversation could be had about the differences between outpatient palliative care followup or hospice care. I did not go into any detail regarding hospice care. Recommendations Allow 4-6mg PO hydromorphone Q4 hours PRN for breakthrough pain. It is my understanding that Mr. Campbell will likely discharge from the hospital today. Should questions or concerns arise prior to his dismissal, please don't hesitate to contact either myself or my Palliative Care colleague Dr. Gil Neumann. Additionally, we can be reached at service pager [phone]. Ithas been our pleasure to have the opportunity to participate in Mr. Campbell's care. Thank you. Kimberly Logan APRN, [facility] Division of Community Internal Medicine, Geriatrics, and Palliative Care Section of Palliative Care Johana Anne M.D. - 06/03/2022 11:43 AM CDT Brief GI miscellaneous Note Patient underwent EGD/ERCP today. The EGD was performed without issues, able to pass the endoscope through the duodenum. Was moderate duodenal stenosis likely from underlying pancreatic malignancy. Wasalso noted that patient had 2 patent cyst gastrostomy stents (double pigtails) in the stomach, whichwere left in place as they were in good position. In regards to his biliary tree, the common bile duct stricture secondary to his adenocarcinoma was visualized with metal biliary stents in place however they were occluded.. Patient required balloon sweeps in clearance of significant sludge from the metal biliary stents. No pus or stones. There was prompt drainage of contrast and bile at the conclusion of the procedure. Final recommendations: - No need to repeat ERCP unless symptoms of biliary obstruction or acute cholangitis. - No need for duodenal stenting or gastrojejunostomy at this time. In the future this can be considered if patient develops symptoms of gastric outlet obstruction. GI will sign off at this time. Please page GI service if any further questions. Vishal Ac M.D. - 06/02/2022 4:34 PM CDT INITIAL SUPERVISORY NOTE PRIMARY TOPANGA ONCOLOGIST Deborah Murray M.B.B.S. Maria Del Rosario Gomez APRN C.N.P., M.S. REASON FOR ADMISSION Adam Campbell is a 57 y.o. male with metastatic pancreatic cancer who was admitted for acute on chronic abdominal pain. HISTORY OF PRESENT ILLNESS The patient was seen today with the Oncology 1 Service. I have reviewed and discussed the case with the care team, and I agree with the oncologic history, HPI, PMH, family history, social history, systems review, physical exam, and assessment/plan as outlined in the full consultation note of Dr. Mercado. ASSESSMENT/PLAN: #1 Metastatic pancreatic adenocarcinoma on study of onvansertib/ 5-FU / Neliri #2 Admitted for intermittent severe abdominal pain #3 Malignant biliary strictures with complex procedural history #4 Portal vein thrombosis Mr. Campbell was sent to the ED after experiencing intense pain as an outpatient. We appreciate the input from Gastroenterology on role of ERCP, which was previously planned as an outpatient. We note thathis last 1 noted clear sludge, but he did have LFT abnormalities noted at that time which are not present now. The most recent ERCP did note extrinsic compression of the duodenum, and perhaps this is an etiology for discomfort. We note the recent CT scan shows increased tumor encasement of the upper SMV, on an intestinal angina is certainly a possibility. My understanding is vascular was involved at some point, and while no intervention was suggested, this is still a consideration. We appreciate the input from our side of care colleagues on the management of this episodic pain. ADMINISTRATIVE BILLING I personally spent over half of a total 60 minutes face to face with the patient in counseling and discussion and/or coordination of care as described above. Nikki Pierce RDN - 06/02/2022 2:51 PM CDT Clinical Nutrition: Initial Assessment Clinical Nutrition was requested to evaluate patient for positive nursing baseline nutrition screen with a MST score of 2 or greater. MST of 2 SUBJECTIVE Mr. Campbell is a 57 y.o. male admitted for abdominal pain, nausea and vomiting. PMH: metastatic pancreatic adenocarcinoma with known liver metastasis complicated by several episodes of acute cholangitis, biliary strictures status post stenting and exchange, and pancreatitis following ERCP who is a part of a research study with irinotecan, 5-FU and onvansertib since Aug 2021 (lastchemo 05/18). Other comorbidities include peripheral neuropathy, portal vein thrombosis, GERD, anxietyand cancer related pain. Completed visit with patient and family today as part of face to face care. Patient scheduled for ERCP with EGD to evaluate abdominal pain. Current Nutrition (since admission): Mr. Campbell consumed 75% of his breakfast this morning consistingof an omelet with peppers and onions, along with some breakfast potatoes and a sprite. During time of visit he was monitoring clock for the onset of abdominal pain which is consistently 10-15 minutes after eating. Offered supplement and shake and smoothie list for patient, patient politely declined. Nutrition history: Pt reports decreased intake over the past month, especially in the last week and a half due to increased abdominal pain that occurs 10-15 minutes after eating. He reports that he hastried many different foods and they all result in this abdominal pain. Has not been able to drink oral nutrition supplements either as these upset his stomach. Is able to tolerate Pedialyte and will drink this throughout the day. Food Allergies: Denied Food Intolerance: Denied Chewing/Swallowing Issues: Denied GI Related Hx: metastatic pancreatic adenocarcinoma, acute cholangitis, biliary strictures status post stenting and exchange, and pancreatitis following ERCP. Patient scheduled for ERCP with EGD to evaluate abdominal pain 06/02. OBJECTIVE Current nutrition orders: Current Diet No oral nutrition, no tube feeding starting at 06/020 Adult Diet Regular starting at 06/01 2048 Pertinent Labs: Potassium: 3.4 Medications: baclofen gabapentin wxevqk-qfvjeqfw-uojbjlr melatonin OLANZapine pantoprazole [START ON 06/03/2022] polyethylene glycol sennosides-docusate sodium sodium chloride traZODone Anthropometrics: Height: 172.7 cm Admission Weight: 68.1 kg (06/01/2022) Current Weight: 68.1 kg BMI (Calculated): 22.8 kg/m?? Weight change since admission: 0 kg Weight Change History: Weight has fluctuated, patient reports body weight of 165 lbs around one month ago as he had been gaining weight back that he had lost. Weight of 73.2 kg on 05/18/22 results in a 5.1 kg weight loss (6.9%) in less than one month, this is clinically signficant. Patient weight of 77.3 kg on 01/06/22 results in a 9.2 kg weight loss (11.9%) in 5 months, this is clinically significant. Estimated Needs: Total Calorie Needs: 1800 calories/day Method to Estimate Energy Needs: Ramirez-Creswell (Basal to Basal + 20%) Weight Used for Equation Calculations: 68.1 kg Total Protein Needs: 82 - 102 grams/day (Method to Estimate Protein Needs (g/kg): 1.2 - 1.5 gm/kg) Weight Used to Calculate Protein Needs (Kg): 68.1 kg Nutrition Diagnosis: Malnutrition (undernutrition) related to abdominal pain as evidenced by pt reports decreased intake,significant weight loss and fat/muscle loss on exam Malnutrition Criteria: Average estimated Intake: Less than or equal to 75% for 1 or more months Weight Loss: >5% in 1 month (6.9% in less than one month, 11.9% in less than 6 months) Body Fat: Mild Loss Muscle Mass: Moderate Loss Nutritional Status: Severe Malnutrition Malnutrition in the Context of: Chronic Illness ASSESSMENT / PLAN Patient meets ASPEN/AND criteria for Severe Malnutrition (06/02/2022 2:16 PM) See Nutrition Focused Physical Findings section for details. Nutrition Intervention: Interventions: Increase nutrient intake with small, frequent meals and/or snacks, Medical food supplement, Vitamin and mineral supplements. Recommendations: No changes at this time; continue current nutrition orders Monitoring/Evaluation: Nutrition parameter to monitor: Meals/Supplement Intake, Nausea/Vomiting/Diarrhea, Comparative Standards, Weight Status, Pertinent Labs Desired Outcome: Patient to consume adequate nutrition to prevent further weight loss For questions about patient's nutritional care please contact pager [phone] on weekdays or [phone] on weekends/holidays. Aundrea Daniels M.D. - 06/02/2022 9:01 AM CDT [facility] PROGRESS NOTE SUBJECTIVE Mr. Adam Campbell is a 57 y.o. male with metastatic pancreatic adenocarcinoma with known livermetastasis complicated by several episodes of acute cholangitis, biliary strictures status post stenting and exchange, and pancreatitis following ERCP who is a part of a research study with irinotecan,5- FU and onvansertib since Aug 2021 (last chemo 05/18) who presents with increasing abdominal pain. Comorbidities include peripheral neuropathy, portal vein thrombosis, GERD, anxiety, and cancer related pain. No acute events overnight. Patient continues to have fullness 10 abdominal pain this morning 30 minutes after taking his 1 mg p.o. Dilaudid. He also endorses some lower back pain. Patient has been having postprandial discomfort, pain, nausea, vomiting recently. This is consistent with his last presentation of biliary sludge cleaned out with ERCP. Therefore, he feels that this pain is secondary to this. On scans, patient also had some progression of his disease specifically around the SMV celiac arteries. Patient was alerted of this and he is unsure if his cancer could be contributing to his pain. He says that his cancer has woken up. In the past, patient has had a celiac plexus block that was unsuccessful in controlling his pain. Patient does have a ERCP up patient scheduled for tomorrow. He would like to proceed with getting an ERCP because he feels it will help his pain. Lately, he feels as though his lipase has not been helping. Patient will be seen by palliative in GI today. Appreciate help with management. I have reviewed the current medication list. OBJECTIVE VITAL SIGNS Temperature: [36 ??C-36.9 ??C] 36.9 ??C Heart Rate: [69-90] 90 Resp Rate: [14-20] 16 Blood Pressure: (106-148)/(70-95) 128/88 SpO2: [94 %-100 %] 95 % Height: [172.7 cm-176.8 cm] 172.7 cm Weight: [68.1 kg-72.2 kg] 68.1 kg BSA (Calculated - sq m): [1.81 sq meters-1.88 sq meters] 1.81 sq meters BMI (Calculated): [22.8 kg/m??-23.1 kg/m??] 22.8 kg/m?? Pulse Rate: [68-92] 74 PHYSICAL EXAM General: Well-appearing man, lying in bed, no acute distress HEENT: Head normocephalic and atraumatic, pupils equal. No scleral icterus. Cardiovascular: S1 and S2, no murmurs or rubs, no lower extremity edema. Skin warm and well perfusedto touch. Pulmonary: Normal work of breathing, equal breath sounds bilaterally, no crackles or wheezes Abdomen: Slightly distended, diffusely tender to palpation, soft. No peritoneal signs. Skin: No jaundice. No rashes on exposed skin. Neuro: Alert and oriented. Appropriate affect and mood. Judgment intact. Moves all extremities spontaneously. DIAGNOSTICS I have personally reviewed the laboratory data and imaging since admission, and in/outs for past 72 hours. ASSESSMENT / PLAN Mr. Campbell is a 57-year-old with metastatic pancreatic cancer hospitalized on [facility] for evaluation and management of acute on chronic abdominal and lower back pain. # Pancreatic adenocarcinoma with liver metastasis # Tumor encasement of vascular structures in abdomen # Peripheral neuropathy # Cancer related pain # Nausea and vomiting Patient presents with worsening abdominal pain, low back pain, and nausea. His CT abdomen pelvis 06/01 demonstrated increasing tumor incasement of his upper superior mesenteric pain with progressive narrowing. This could certainly be the etiology of his pain is but could also be from his overall metastatic cancer as well. Fortunately, his biliary stent appears stable and patent and his LFTs and his overall labs are fairly unremarkable. Of note, patient was also scheduled for ERCP tomorrow, 06/02. GI is consulted and will do an ERCP with EGD to evaluate for stricture, biliary sludge burden, or other pathology that could be contributing to symptoms. Also will get a mesenteric Doppler to evaluate for va scular insufficiency in setting of increased tumor burden. - Palliative consulted, appreciate recs - Hepatobiliary consulted, appreciate recs - PRN IV hydromorphone 1.5 mg Q4H - PRN PO hydromorphone 6 mg Q4H - Continue DELINQUENCY PREVENTION SOCIAL WORKER trazedone 50 mg QD at bedtime - Gabapentin 300 mg QD - Olanzapine 5 mg QD - DELINQUENCY PREVENTION SOCIAL WORKER pantoprazole 40 mg, baclofen 10 mg, and Creon capsules - EGD and ERCP tomorrow - Mesenteric artery doppler Current Activity/Mobility: BMAT Level 4 (Able to stand and walk; needs staff assist if fall risk factors identified) Fall Injury Prevention: N/A - patient is not determined to be at risk of falling Diet: general diet Tubes/lines: PIV VTE prophylaxis: enoxaparin Disposition: Home with expected discharge date Stable to discharge criteria (not met): Pain control Plan discussed with [facility] Fuel Distribution System Operator, Vishal Mendez M.D., who was present during patel portions of the evaluation today. Please page the [facility] service pager with any questions. Dilcia Mercado MD PGY-1, Internal Medicine documented in this encounter H&P Notes Quan Cunningham M.D. - 06/01/2022 6:46 PM CDT ONCOLOGY ADMISSION NOTE SUBJECTIVE Adam Campbell is a 57-year-old male medical comorbidities including metastatic pancreatic cancer with liver metastasis on a study medication (onvansertib), GERD, anxiety, peripheral neuropathy admitted to the oncology service for abdominal pain, nausea, and vomiting. He was seen by his outpatient oncologist earlier today and endorsed worsening abdominal pain, nausea, and vomiting. He also endorses this is worse with eating. In the emergency department, initial vitals demonstrated temperature 36.8??, pulse 70, blood pressure 126/80 and O2 sat 100% on room air. Labs demonstrated hemoglobin 10.3, white count 4.2, platelets 165. Chemistries demonstrated sodium 139, potassium 3.4, bicarb 24, creatinine 0.77. LFTs largely unremarkable but notable for alkaline phosphatase 289. A CT abdomen pelvis performed earlier today demonstrated increased tumor incasement of the upper superior mesenteric vein with subsequent progressive narrowing. Reportedly, the emergency department discussed the case with the paddle biliary surgery andvascular surgery and as stated there was no acute surgical intervention at the present time. Upon arrival to the floor, patient is afebrile and hemodynamically stable. He rates his abdominal pain is a 5/10 and also no versus some lower bilateral flank plain which he states has been chronic. Hestates this pain has been progressively worsening over the past few weeks but this morning was a 10/10 which is what prompted him to report this to his oncologist and then report to the emergency department. He also endorses some nausea but denies other symptoms. I have reviewed and updated the following: Past Medical History: Diagnosis Date Adjustment Disorder Mixed Reaction Bacteremia 08/15/2020 Carpal Tunnel Syndrome Right Diarrhea Dysfunction Erectile 08/18/2020 Gastroesophageal Reflux Disease NOS 10/31/2012 Headache Unspecified Malignant Neoplasm Of Pancreas (HCC) 07/30/2020 Murmur Heart 11/28/2010 Echocardiogram done on 03/20/2008. Pancreatitis Post Endoscopic Retrograde Cholangiopancreatography (HCC) 07/30/2020 Portal Vein Thrombosis 08/18/2020 Stone Kidney 2015 Varicocele left, treated with embolization of gonadal vein Past Surgical History: Procedure Laterality Date BREAST CYST EXCISION Right CARPAL TUNNEL RELEASE CIRCUMCISION N/A Circumcision IR GONADAL VEIN EMBOLIZATION Left TONSILLECTOMY AND ADENOIDECTOMY N/A Tonsillectomy and adenoidectomy TRIGGER FINGER RELEASE VASECTOMY N/A Vasectomy VASECTOMY 1991 Family History Problem Relation Age of Onset Lung cancer Maternal Grandmother Alcohol abuse Mother Social History Socioeconomic History Marital status: Spouse name: Shaniqua Number of children: 2 Highest education level: 12th grade Occupational History 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 05/31/2022 gabapentin (NEURONTIN) 300 mg capsule Take 3 capsules (900 mg total) by mouth at bedtime. (Patient taking differently: Take 300 mg by mouth at bedtime. States only taking 1 tablet at night) 05/31/2022 HYDROmorphone (DILAUDID) 4 mg tablet Take 0.5-1 tablets (2-4 mg total) by mouth every 6 (six) hoursas needed for pain Indication: Chronic Pain/Nonacute Pain. 06/01/2022 at 1500 LORazepam (ATIVAN) 0.5 mg tablet TAKE 1 TABLET(0.5 MG) BY MOUTH EVERY 6 HOURS NEEDED FOR ANXIETYPast Month medical cannabis capsule Take by mouth. THC component: CBD component: 06/01/2022 ondansetron (ZOFRAN) 8 mg tablet Take 1 tablet (8 mg total) by mouth every 8 (eight) hours as needed for nausea or vomiting. Past Week polyethylene glycol (MIRALAX) 17 gram powder packet Take 1 packet (17 g total) by mouth 2 (two) times a day. Dissolve each 17 g dose in 240 mLs (8 ounces) of beverage. 06/01/2022 sennosides-docusate sodium (SENOKOT-S) 8.6-50 mg per tablet Take 3 tablets by mouth 2 (two) times aday. 06/01/2022 traZODone (DESYREL) 50 mg tablet Take 1-2 tablets (50-100 mg total) by mouth at bedtime. Take 50 mgdaily at bedtime for at least 7 days. If ineffective, may trial increase to 100 mg daily at bedtime.Past Week Creon 24,000-76,000 -120,000 unit capsule TAKE 1 TO 3 CAPSULES BY MOUTH THREE TIMES DAILY WITH MEALS heparin 100 unit/mL syringe 5 mL (500 Units total) by intra-catheter route once as needed for line care for up to 1 dose. Flush IV line AFTER 0.9% Sodium Chloride flush heparin 100 unit/mL syringe 5 mL (500 Units total) by intra-catheter route once as needed for line care for up to 1 dose. Flush IV line AFTER 0.9% Sodium Chloride flush heparin 100 unit/mL syringe 5 mL (500 Units total) by intra-catheter route once as needed for line care for up to 1 dose. Flush IV line AFTER 0.9% Sodium Chloride flush lidocaine-prilocaine (EMLA) 2.5-2.5 % cream Apply 1 application topically as needed for pain. Applyto port site. OLANZapine (ZyPREXA) 5 mg tablet Take 1 tablet (5 mg total) by mouth at bedtime. More than a month pantoprazole (PROTONIX) 40 mg EC tablet Take 1 tablet (40 mg total) by mouth 2 (two) times a day before breakfast and dinner. [DISCONTINUED] levoFLOXacin (LEVAQUIN) 750 mg tablet Take 750 mg by mouth daily. for 7 days REVIEW OF SYSTEMS Pertinent items are noted in HPI; all other review of systems was negative. OBJECTIVE VITAL SIGNS Temperature: [36 ??C-36.8 ??C] 36.8 ??C Heart Rate: [69] 69 Resp Rate: [15-20] 16 Blood Pressure: (106-132)/(70-84) 132/84 SpO2: [97 %-100 %] 97 % Height: [176.8 cm] 176.8 cm Weight: [72.2 kg] 72.2 kg BSA (Calculated - sq m): [1.88 sq meters] 1.88 sq meters BMI (Calculated): [23.1 kg/m??] 23.1 kg/m?? Pulse Rate: [68-85] 79 PHYSICAL EXAM General: Alert, interactive, not acutely ill, no apparent distress. Eyes: Pupils equal and round. Sclera anicteric. ENT: Hearing grossly intact. Lungs: Normal rate and effort. Clear to auscultation. Heart: Regular rate and rhythm. No murmurs appreciated. No extremity edema. Abdomen: Mild tenderness throughout. No rebound tenderness. Neuro: No focal deficits. ASSESSMENT / PLAN Adam Campbell is a 57-year-old male medical comorbidities including metastatic pancreatic cancer with liver metastasis on a study medication (onvansertib), GERD, anxiety, peripheral neuropathy admitted to the oncology service for abdominal pain, nausea. Overall, patient presented with worsening abdominal pain and nausea. His CT abdomen pelvis demonstrated increasing tumor incasement of his upper superior mesenteric pain with progressive narrowing. This could certainly be the etiology of his pain is but could also be from his overall metastatic canceras well. Fortunately, his biliary stent appears stable and patent and his LFTs and his overall labs are fairly unremarkable. For the time being, we will plan to treat his pain overnight with hydromorphone p.o. and IV. His pain worsens or are unable to control it could consider BUSINESS DEVELOPMENT CONSULTANT. In the a.m. could consider discussing the case further with Interventional Radiology to see if stent placement is feasible. #1 Abdominal Pain # Nausea - Hydromorphone PO and IV. - Could consider BUSINESS DEVELOPMENT CONSULTANT if pain not controlled. - Consider palliative care consult given progressive disease and pain control - continue home pain medications including baclofen, gabapentin, and olanzapine. # Hypokalemia - Replete # Worsening pancreatic cancer with increased tumor encasement of the upper SMV with progressive narrowing per CT # Metastatic pancreatic cancer with liver mets # Pancreatic insufficiency # Hx of pancreatitis s/p pancreatic duct stent Diet: general diet Tubes/lines: PIV VTE prophylaxis: enoxaparin Code status: Full Code Disposition: Home with expected discharge date documented in this encounter Consult Notes Arianna Marin M.D. - 06/02/2022 4:07 PM CDT INPATIENT SUPERVISORY CONSULT NOTE Date of Consultation: 06/02/2022 Requesting Service: [facility] This is a supervisory note for Dr. Lucero Plascencia. I have reviewed the available records, interviewed and examined the patient. I agree with the chief complaint, history of present illness, past medical and surgical history, medications, physical examination, and impression/plan as outlined in Dr. David Canales's note dated today except as differs below. Patient was seen in conjunction with GI fellow, Dr. Johana Richards M.D. Mr. Campbell is a 57 y.o. male with metastatic pancreatic adenocarcinoma w/ lung and liver involvement complicated by malignant biliary stricture s/p metal stent placement and peripancreatic abscess s/p cystgastrostomy w/ residual pigtail stents, currently undergoing research chemo regimen who is in the hospital with abdominal pain. His medical history also includes peripheral neuropathy, portal vein thrombosis, GERD, and cancer related pain. A week ago, patient developed intermittent back/abdominal pain and passed a kidney stone on 05/26. Since, he still has residual L lower back pain wrapping to the front and a separate abdominal pain witha sense of bloating, occasionally exacerbated by eating. Overall he tolerates a normal diet but occasionally he will have nausea and bring up undigested foodand pills with emesis up to 12 hrs after ingestion. He will occasionally have abdominal pain post-prandially but describes a cramping sensation in the setting of gas lasting up to 30 minutes and resolving spontaneously. He does report some worsening constipation. On review of his labs, his hepatic panel and biliary enzymes are all within normal limits. CT scan shows no evidence of blockage in the biliary stent. His prior pigtail catheters are in a collapsed perirenal area without residual abscess. No dilation of the stomach visualized. He does have progressionof disease encasement of his SMV with subsequent progression of SMV thrombosis. ASSESSMENT / PLAN The etiology of patient's pain is unclear at this juncture. Certainly there is concern for venous congestion and relative ischemia from this. US of his mesenteric arteries show patent flow. Would consider discussion with our colleagues in IR or vascular to see if the SMV requires intervention. Given his history of multiple interventions, and recent ERCP with concern for mild duodenal stenosisand his symptoms concerning for intermittent obstruction, we would suggest EGD for mucosal evaluation. Biliary labs and imaging reviewed w/ our advanced endoscopy colleagues and an ERCP is likely not needed, but need can be assessed during procedure. We will request EGD for mucosal evaluation, consideration of pulling the pigtail catheters in case they are contributing at all to obstruction, and evalof any duodenal narrowing. Lastly, a more aggressive bowel regimen may be beneficial given constipation in case this is worsening his bloating. Would suggest bisacodyl instead of senna, 5mg BID, and MiraLAX 1-2x/day. If not producing cleansing bowel movement tomorrow, would add a glycerin suppository from below. Remainder per Dr. Plascencia. Thank you for involving us in the care of this patient. We will follow. Isaura Marin M.D. 06/02/22 4:08 PM CDT Problem list: #1 Abdominal Pain Kimberly Logan APRN, C.N.P., M.S.N. - 06/02/2022 3:49 PM CDTAssociated Order(s): IP CONSULT TO PALLIATIVE CARE [facility] Palliative Medicine New Consult Note Patient: Adam Campbell; 57 y.o.male Location: [id number]/[id number] Date of Service: 06/02/2022 Time of Visit: 3:49 PM CDT Hospital Admission Date: 06/01/2022 12:29 PM Hospital Day: 1 Primary Digital Strategy Specialist: Vishal Ac M.* Primary Care Provider: ELSEWHERE, PCP Reason for Consult: Acute on chronic abdominal pain in the setting of metastatic pancreatic cancer,help with pain control. SUBJECTIVE History of Present Illness: Mr. Adam Campbell is a 57 yo gentleman with a history of metastatic pancreatic cancer. His oncologichistory is as follows: Oncology History Malignant Neoplasm Of Pancreas (HCC) 07/2020 Initial Diagnosis Malignant Neoplasm Of Pancreas (HCC) 07/29/2020 Biopsy/Pathology PANCREAS, MASS IN UNCINATE PROCESS, ENDOSCOPIC ULTRASOUND-GUIDED TRANSDUODENAL APPROACH FINE NEEDLE ASPIRATION: Adenocarcinoma 07/29/2020 Surgery and Procedures ERCP with placement of metal stent insertion/exchange on 07/29 and 08/04/2020, complicated by pancreatitis and peripancreatic abscess (positive for strep anginosus) and bacteremia. He had been hospitalized and on iv antibiotics. 10/01/2020 Surgery and Procedures Rehospitalized with abdominal pain and concern for cholangitis after discontinuing ertapenem the week prior. Prior stent was patent, but a CBD stricture was obstructing and this was stented with resolution of hyperbilirubinemia. Antibiotics were discontinued prior to discharge. 10/16/2020 - 12/27/2020 Chemotherapy Treatment on hold after 1 cycle when complicated by infection/pancreatitis. Gemcitabine / PACLitaxel Protein - Bound Start Date: 10/16/2020 12/31/2020 Other Re-evaluated by Dr. Travis and patient deemed not a surgical candidate. He recommended palliative management. 01/25/2021 - 03/02/2021 Radiation Therapy Radiation Therapy Treatment Details (01/25/2021 - 03/02/2021) Site: Pancreas Technique: 3D EMBEDDED DEVELOPER Goal: Curative Planned Treatment Start Date: 01/25/2021 01/25/2021 - 03/01/2021 Chemotherapy Gemcitabine ( with Radiation ) Start Date: 01/25/2021 01/25/2021 Clinical Stage Staging form: Exocrine Pancreas, AJCC 8th Edition - Clinical stage from 01/25/2021: Stage IB (cT2, cN0, cM0) Histopathologic type: Ductal Adenocarcinoma Stage prefix: Initial diagnosis Total positive nodes: 0 08/13/2021 Genetic Testing and Tumor Genotyping [facility] pancreas panel negative 08/23/2021 Recurrence Distant 1.) August 13, 2021: CT: C/A/P: Unchanged number and size of multiple bilateral subcentimeter, noncalcified solid pulmonary nodules. Stable pancreatic mass. New 1.5 cm right hepatic lobe lesion concerning for metastasis. 2.) August 27, 2021: FNA: Liver: Liver tissue with focal involvement by atypical glands, suspicious of metastatic adenocarcinoma. 08/27/2021 - Research Study Participant Research Study: A Study to Analyze Onvansertib Treatment in Patients with Metastatic Pancreatic Ductal Adenocarcinoma ([id number]) Treatment Protocol: [facility] CRDF-001 ( Onvansertib (Days 1-10) / Fluorouracil / Leucovorin / Nanoliposomal Irinotecan ) He was seen in the outpatient oncology clinic yesterday and sent to the ED for evaluation of new onset left flank/abdominal pain. Pain worsens with eating. It is in this setting that Palliative Care has been consulted to assist with pain management. Palliative Medicine Assessment: Pain: Reports abdominal bloating and cramping after eating. Also reports new pain that begins on theleft side of the back and wraps around to the front of the abdomen. Pain was previously well treatedwith 4mg PO hydromorphone. The dose is now less effective. Bowels: Diarrhea. Nausea/Vomiting: Denies. Dyspnea: Denies. I have reviewed the patient???s record in the [place] Prescription Monitoring Program ([employer]) with no unexpected findings. The following portions of the patient's history were reviewed and updated as appropriate: Allergies,Current Medications, Medical History, Surgical History, Family History, and Social History Past Medical History: Diagnosis Date Adjustment Disorder Mixed Reaction Bacteremia 08/15/2020 Carpal Tunnel Syndrome Right Diarrhea Dysfunction Erectile 08/18/2020 Gastroesophageal Reflux Disease NOS 10/31/2012 Headache Unspecified Malignant Neoplasm Of Pancreas (HCC) 07/30/2020 Murmur Heart 11/28/2010 Echocardiogram done on 03/20/2008. Pancreatitis Post Endoscopic Retrograde Cholangiopancreatography (HCC) 07/30/2020 Portal Vein Thrombosis 08/18/2020 Stone Kidney 2015 Varicocele left, treated with embolization of gonadal vein Past Surgical History: Procedure Laterality Date BREAST CYST EXCISION Right CARPAL TUNNEL RELEASE CIRCUMCISION N/A Circumcision IR GONADAL VEIN EMBOLIZATION Left TONSILLECTOMY AND ADENOIDECTOMY N/A Tonsillectomy and adenoidectomy TRIGGER FINGER RELEASE VASECTOMY N/A Vasectomy VASECTOMY 1991 Social History: with two children and three grandchildren. 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 Advance Care Planning Documents: None on file. Code Status: Full Code Review of Systems Constitutional: Fever, Chills, Night sweats, Hot flashes, Weight Loss, Anorexia, Fatigue/Malaise HEENT: Headaches, Dizziness, Change in Vision, Epistaxis, Bleeding gums, Mouth sores, Odynophagia, Xerostomia Respiratory: Dry Cough, Productive Cough, Shortness of breath, Pleuritic Chest Pain, Hemoptysis; Excess secretions? Cardiovascular: Orthopnea, PND, ??Chest Pain, ?Palpitations, LE edema? GI: Dysphagia, Heartburn, Hiccups, Hematemesis, N/V, Diarrhea, Constipation, Abdominal pain, Melena,Hematochezia? : Dysuria, Hematuria, Incomplete Voiding, Frequency, Retention/Incontinence? Musculoskeletal: Bone pain, Joint pain or swelling, Muscle aches? Skin: Pruritis, Dry skin??, Rash Neurological: Drowsiness, Difficulty thinking/Memory Impairment, Paresthesias, Myoclonus? Psychiatric: Anxiety, Depressed mood, Irritability, Sadness, Hallucinations (visual/auditory)? The patient reports symptoms that are bold. All other systems have been reviewed and are negative.??? Palliative Functional Assessment None on file. OBJECTIVE Medications Scheduled Medication Ordered Dose/Rate, Route, Frequency Last Action baclofen tablet 10 mg (LIORESAL) 10 mg, oral, Daily Ordered gabapentin capsule 300 mg (NEURONTIN) 300 mg, oral, Daily at bedtime Given, 300 mg at 06/01 2140 hvjoyp-qoxoylyu-jnqxynw 24,000-76,000-120,[address] capsule 48,000 Units of lipase (CREON) 48,000 Units of lipase, oral, TID with meals Given, 48,000 Units of lipase at 06/02 1041 melatonin tablet 3 mg 3 mg, oral, Daily at bedtime Ordered OLANZapine tablet 5 mg (ZyPREXA) 5 mg, oral, Daily at bedtime Given, 5 mg at 06/[address] tablet 40 mg (PROTONIX) 40 mg, oral, BID before breakfast and dinner Given, 40 mg at 06/02 0646 polyethylene glycol powder packet 17 g (MIRALAX) 17 g, oral, Daily Ordered sennosides-docusate sodium 8.6-50 mg per tablet 1 tablet (SENOKOT-S) 1 tablet, oral, BID Given, 1 tablet at 06/02 08 sodium chloride 0.9 % injection 3 mL 3 mL, IV, Q12H LACHELLE Ordered traZODone tablet 50 mg (DESYREL) 50 mg, oral, Daily at bedtime Ordered PRN Medication Ordered Dose/Rate, Route, Frequency Last Action acetaminophen tablet 1,000 mg (TYLENOL) 1,000 mg, oral, Q6H PRN Ordered bisacodyL suppository 10 mg (DULCOLAX) 10 mg, rectal, Daily PRN Ordered HYDROmorphone (PF) injection 1.5 mg (DILAUDID) 1.5 mg, IV, Q4H PRN Ordered HYDROmorphone tablet 6 mg (DILAUDID) 6 mg, oral, Q4H PRN Ordered oeiqgx-sllohcwg-pitgtqi 24,000-76,000-120,[address] capsule 24,000 Units of lipase (CREON) 24,000 Units of lipase, oral, PRN Given, 24,000 Units of lipase at 06/02 1227 ondansetron ODT disintegrating tablet 4 mg (ZOFRAN-ODT) 4 mg, oral, Q6H PRN Ordered sodium chloride 0.9 % injection 10 mL 10 mL, IV, PRN Ordered sodium chloride 0.9 % injection 3 mL 3 mL, IV, PRN Ordered Physical Exam Temperature: [36.6 ??C-37 ??C] 37 ??C Heart Rate: [90] 90 Resp Rate: [14-18] 18 Blood Pressure: (104-148)/(73-95) 104/73 SpO2: [94 %-100 %] 95 % Height: [172.7 cm] 172.7 cm Weight: [68.1 kg] 68.1 kg BSA (Calculated - sq m): [1.81 sq meters] 1.81 sq meters BMI (Calculated): [22.8 kg/m??] 22.8 kg/m?? Pulse Rate: [74-103] 103 General: Thin 57 yo gentleman reclined in hospital bed. In no acute distress. HEENT: Moist mucous membranes, no scleral icterus. Respiratory: Unlabored respirations. Abdomen: Non-distended. Neurologic: No gross sensory or motor deficits. No myoclonus. Psychiatric: Alert, pleasant, and conversant. Diagnostics I have reviewed recent labs, imaging, and other diagnostics. ASSESSMENT / PLAN Impression/Report/Plan: #1 Acute on chronic cancer-related pain #2 Diarrhea #3 Palliative Care Z51.5 #4 Metastatic pancreatic cancer It was a pleasure to meet Mr. Campbell this morning. The medical record was reviewed prior to my visit,and I had the opportunity to discuss the plan of care with the Medical Oncology Service. At the timeof my visit, he was found reclined in his hospital bed and reported adequate pain control. The role of palliative medicine in the care of those with serious illness was reviewed, and I shared with him a hope to be able to help with management of his pain. Mr. Campbell shared that while on the way to his oncologic appointment yesterday, he began experiencingsignificant left-sided back pain that wrapped around to his abdomen. Pain became so severe that he needed to puller over to allow his to drive. Upon admission to the emergency department, home dose of 4 mg oral Dilaudid was given and ???did nothing?? to ease his pain. Mr. Campbell was then given a dose of ketamine, which he said he will ???never take it again. ?? He did not like the way the ketamine made him feel. I note that he was also given IV hydromorphone in the amount of 1 mg. Overnight, he was allowed his home dose hydromorphone, and this morning he reports that his pain is well controlled. He also expressed a desire to be allowed to eat in the hopes that the pain might be reproduced so that his medical team might better be able to evaluate it. For quite some time, Mr. Campbell has been utilizing a dose of 4 mg oral hydromorphone for management of pain. He reports that he takes a dose at bedtime and then a dose in the morning. It sounds as though he was utilizing few doses throughout the day. Over time, he has noticed that the 4 mg dose she is not as effective in managing pain. As a result, I recommend that his oral dose of hydromorphone be increased to 6 mg and be allowed every 4 hours as needed for pain. As a secondary pain management option, I recommend the IV dose of hydromorphone be increased to 1.5 mg and be allowed every 4 hours as needed. I note that her Mr. Campbell has previously been seen in our outpatient clinic. When asked him about that today, he had a hard time recalling this. He had an appointment scheduled for earlier this summer,and missed that appointment. Outpatient follow-up in the palliative Care Clinic could be considered.At the moment, it is my understanding that oncology has been writing for opioid. Recommendations: - Increase PO hydromorphone dose to 6mg Q4 PRN. - Increase IV hydromorphone dose to 1.5mg Q4 PRN as secondary option. Palliative Care will continue to follow. Should questions or concerns arise, please don't hesitate to contact either myself or my Palliative Care colleague Dr. Gil Neumann. Additionally, we can be reached at service pager [phone]. It is our pleasure to have the opportunity to participate in Mr. Campbell's continued care. Thank you. Kimberly Logan APRN, [facility] Lucero Plascencia M.D. - 06/02/2022 11:31 AM CDTAssociated Order(s): IP CONSULT TO GASTROENTEROLOGY GI CONSULTING SERVICE SUBJECTIVE REFERRING SERVICE [facility] CHIEF COMPLAINT/REASON FOR VISIT Acute on chronic abdominal pain in a complicated metastatic pancreatic cancer patient HISTORY OF PRESENT ILLNESS Mr. Adam Campbell is a 57 y.o. male who presents with acute on chronic back and abdominal painin the setting of metastatic pancreatic cancer. GI is consulted for further evaluation as to etiology of pain and need for possible intervention. Mr. Campbell unfortunately has had a complicated course following diagnosis of pancreatic cancer. He underwent ERCP in late 2019 and subsequently developed pancreatitis including pancreatic abscess requiring cystogastrostomy tube placement. He has additionally required biliary stenting for obstructive jau ndice with metallic stent still in place (fully covered, initially placed 03/19/2021 with extensive biliary sludge cleared 01/14/2022). Over approximately the week prior to admission, the patient has had worsening back and abdominal pain. He reports passing a kidney stone on 05/26. Since that time, he has had intermittent left lower back pain that wraps around to his lower abdomen as well as a separate cramping lower abdominal pain with sensation of bloating. The patient is unable to identify any clear precipitating factors for his abdominal discomfort. It can come on following meals (sometimes within 5-10 minutes), but this is very inconsistent. Pain typically lasts for approximately 5-30 minutes before spontaneously resolving. No clear pattern of specific foods causing symptoms. He is eating a regular diet otherwise. He may also have associated bloating, nausea and vomiting. He notes an episode of emesis with undigested food and pills he could identifyas being taken 12 hours previous. No difficulty or pain with swallowing. Bowel movements have been variable with ongoing use of opioid medications. No clearly progressive constipation or diarrhea, though he can have more explosive bowel movements. Yesterday, the patient developed 10/ back pain and underwent outpatient CT scan. This did not demonstrate any clear etiology of his symptoms but was notable for progression of compression of the SMV.Additional laboratory workup has been notable for mildly elevated ALP and resolved mild elevations in ALT and total bilirubin. REVIEW OF SYSTEMS Pertinent items are noted in HPI; all other review of systems negative. OBJECTIVE PHYSICAL EXAMINATION General: Chronically ill-appearing male, in no acute distress. Eyes: Sclera anicteric, EOM intact. Respiratory: No increased work of breathing. Abdomen: Soft, nontender, and nondistended. Normoactive bowel sounds. Left CVA tenderness. Skin/MSK: No rashes, lesions, or purpura noted. DIAGNOSTICS I have personally reviewed all diagnostic studies from admission. ASSESSMENT / PLAN # Lower abdominal and back pain # Metastatic prostate cancer with encasement of the celiac artery, SMA, hepatic artery, splenic artery, and SMV # History of post-ERCP pancreatitis with pancreatic abscess status post cystogastrostomy tube placement # History of obstructive jaundice status post biliary stenting # Mild elevation of ALT and bilirubin, resolved Mr. Adam Campbell is a 57 y.o. male who presents with acute on chronic back and abdominal painin the setting of metastatic pancreatic cancer. There is concern for possible vascular compromise from tumor mass effect as the etiology of his pain. The patient's symptoms are not clearly suggestive of vascular compromise, though given his progression based on imaging it would be reasonable to proceed with further studies. Fortunately, no suggestion of an acute process requiring urgent intervention. Otherwise, the patient has had previous evidenceof duodenal narrowing and his symptoms could be consistent with this, particularly postprandial bloating, nausea, and vomiting of undigested food/pills. No biochemical suggestion of biliary obstruction. Patient notably had left CVA tenderness on exam of uncertain etiology. There is some soft tissue thickening around the left renal fascia on imaging that is perhaps related to his cystogastrostomy tube.We will discuss potential for removal with proceduralist. No signs of kidney stone on recent CT, though I note significant artifact from gonadal vein embolization coil. Patient also noting some symptoms of suggestive of constipation. RECOMMENDATIONS: EGD to evaluate duodenal stricture with stent placement as needed. ERCP as needed, will discuss with proceduralist. Mesenteric artery Dopplers to evaluate concerns for vascular compromise due to tumor mass effect. Increase bowel regimen. Staffed with Dr. Marin. Please contact our service with any questions or concerns. Lucero Plascencia Internal Medicine PGY-3 documented in this encounter Nursing Notes Rachel Gómez R.N. - 06/03/2022 1:28 PM CDT Problem: PAIN - ADULT Goal: PT VERBALIZES/DEMONSTRATES ADEQUATE COMFORT LEVEL OR BASELINE Outcome: Adequate for Discharge Problem: KNOWLEDGE DEFICIT Goal: Patient/family/caregiver demonstrates understanding of disease process, treatment plan, medications, and discharge instructions Outcome: Adequate for Discharge Problem: INFECTION - ADULT Goal: Absence of infection during hospitalization Outcome: Adequate for Discharge Problem: SKIN/TISSUE INTEGRITY Goal: Skin/Tissue integrity maintained or improved Outcome: Adequate for Discharge Goal: Oral and Nasal mucous membranes remain intact Outcome: Adequate for Discharge Problem: SAFETY ADULT Goal: Maintain a safe environment Outcome: Adequate for Discharge Problem: DISCHARGE PLANNING Goal: Patient discharge needs identified Outcome: Adequate for Discharge Problem: SAFETY ADULT - RISK FOR FALL AND OR FALL INJURY Goal: Patient remains free from fall/fall injury Outcome: Adequate for Discharge Shift Goals: Identify possible barriers to meeting goals/advancing plan of care: none End of Shift Summary: Pt remains vitally stable. Pt denies pain. Discharge education and instructions gone over with pt. Pt is able to teach back. At this time pt does not have any further questions. documented in this encounter ED Notes Mariam Mathur APRN, C.N.P., D.N.P. - 06/01/2022 6:19 PM CDT Received sign-out from Marcelina Soto p.a.-C. Patient is awaiting transport to [facility]. He is having increased pain and has p.r.n. hydromorphone ordered. He states it does not feel like it is taking care of his pain and he is reporting more discomfort. We will try pain dose ketamine for bettersymptom management while we await his admission. Patient is in agreement this plan. VITAL SIGNS BP 132/84 Pulse 79 Temp 36.8 ??C Resp 16 SpO2 97% Final Diagnoses: as of 06/01/221818 Abdominal Pain Malignant Neoplasm Of Pancreas Body (HCC) Mariam Mathur APRN C.N.P., D.N.P. 06/01/221819 Eliza Soto P.A.-C. - 06/01/2022 2:54 PM CDT SUBJECTIVE CHIEF COMPLAINT/REASON FOR VISIT Abdominal Pain HISTORY OF PRESENT ILLNESS Adam Campbell is a very pleasant 49-year-old male presenting with increased abdominal pain in the setting of metastatic pancreatic cancer. He is currently getting active chemotherapy and is due for chemo today which he did not receive. He states that his abdominal pain has steadily increased over lastfew days, and today significantly worse. No fevers, chills, nausea, vomiting, diarrhea, constipation, chest pain, shortness of breath. Does have associated back pain. Had an outpatient CT scan today that showed worsening encasement of the SMV as well as tumor encasement of the SMA, celiac artery, and hepatic artery. No other acute findings. Labs or at baseline and overall unremarkable. No leukocytosis. Not neutropenic. He is on 4 mg of oral Dilaudid at home which he states is not alleviating his pain. REVIEW OF SYSTEMS Constitutional: Negative for fever. Respiratory: Negative for shortness of breath. Cardiovascular: Negative for chest pain. Gastrointestinal: Positive for abdominal pain. Negative for constipation, diarrhea, nausea and vomiting. Genitourinary: Negative for dysuria. Musculoskeletal: Positive for back pain. Allergic/Immunologic: Positive for immunocompromised state. Neurological: Negative for syncope. Hematological: Does not bruise/bleed easily. Psychiatric/Behavioral: Negative for confusion. OBJECTIVE Initial Vitals Temperature Pulse Rate Heart Rate Resp Rate Blood Pressure SpO2 06/01/22 1234 06/01/22 1234 06/01/22 1433 06/01/22 1234 06/01/22 1234 06/01/22 1234 36.8 ??C 70 69 18 126/80 100 % Pain Score 06/01/22 1234 10 - Worst possible pain PHYSICAL EXAMINATION Constitutional: Nursing note and vitals reviewed. HENT: Head: Normocephalic. Mouth/Throat: Oropharynx is clear and moist. Mucous membranes are moist. Cardiovascular: Normal rate. Pulmonary/Chest: Effort normal. Abdominal: Soft. There is abdominal tenderness. There is no guarding. Neurological: Alert. Skin: Skin is warm and dry. Psychiatric: He has a normal mood and affect. ASSESSMENT/PLAN IMPRESSION AND PLAN Very pleasant 57-year-old male presenting with abdominal pain acute in the setting of pancreatic cancer. CT scan on outpatient shows worsening cap selection of his SMV, SMA is lungs other arteries by tumor. On arrival he appears uncomfortable but hemodynamics within normal limits and stable. No other new symptoms. Labs are at baseline. Oral Dilaudid is not alleviating his pain. Discussed with hepatobiliary surgery and vascular surgery. They states is not acute surgical intervention. Patient will need admission to the hospital for pain control as his oral Dilaudid is not alleviating pain. Will admitto oncology. I reviewed previous medical records including documentation from previous visits. I personally reviewed the lab result(s) and my interpretation is abnormal but at baseline. I reviewed the radiology report(s). The Radiology exam interpretation(s) is/are abnormal, with the following comments: see MDM. Case reviewed with other health child care centre manager, including Oncology. Final Diagnoses: as of 06/01/22 1454 Abdominal Pain Malignant Neoplasm Of Pancreas Body (HCC) Eliza Soto P.A.-C. 06/01/22 1458 Karen Cook R.N. - 06/01/2022 12:35 PM CDT Patient comes in for pain control of his abdominal and back pain caused by pancreatic cancer. Karen Cook R.N. 06/01/22 1235 documented in this encounter Miscellaneous Notes Hospital Course - Aundrea Mercado M.D. - 06/02/2022 2:51 PM CDT Mr. Adam Campbell is a 57 y.o. male with metastatic pancreatic adenocarcinoma with known livermetastasis complicated by several episodes of acute cholangitis, biliary strictures status post stenting and exchange, and pancreatitis following ERCP who is a part of a research study with irinotecan,5- FU and onvansertib since Aug 2021 (last chemo 05/18) who presents with increasing abdominal pain. Comorbidities include peripheral neuropathy, portal vein thrombosis, GERD, anxiety, and cancer related pain. In the morning of 06/01, patient been experiencing progressive abdominal pain, nausea, vomiting increased bowel gas. His pain was not responding to his home a pain regiment. He has an oncology appointment that day. Prior to his oncology visit, patient underwent CT abdomen pelvis that showed progressed soft tissue encasing the SMV and celiac arteries concerning for vascular insufficiency. CT chest showed multiple small pulmonary and pleural nodules increased in size suspicious for metastatic disease. His outpatient labs were notable for hemoglobin of 10.3, platelets 165, neutrophils 3.05, potassium 3.4, and alk-phos 289. The patient's primary oncologist sent him to [facility] for further evaluation. In the ED, patient was vitally stable with blood pressure 132/84, heart rate 69, afebrile, and saturating 100% on room air. Due to his increasing pain, he was admitted and Oncology for further evaluation and management. During admission, patient's abdominal pain was improved. His pain was controlled with IV and p.o. Dilaudid, gabapentin, and trazodone. Palliative Care was consulted helps with pain management. GI was consulted to help evaluate patient's abdominal pain and he underwent EGD and ERCP on 06/03 that showed 2 patent cystgastrostomy stents, known moderate duodenal stenosis from underlying pancreatic malignancy, patent prior biliary stents, and biliary sludge that was cleared out. Patient tolerated the procedure well and continued to have improved abdominal pain. Patient also underwent ultrasound with Doppler of the mesenteric arteries 06/02 that showed widely patent mesenteric arteries specifically the SMA, SOPHY, and celiac arteries. On dismissal, patient was vitally stable and his abdominal pain was back to his baseline. He was discharged home with Dilaudid 4-6 mg Q4H PRN for pain and he will establish with the palliative care team. He was discharged to home and will follow-up in oncology clinic on 06/06/2022. documented in this encounter Plan of Treatment Upcoming Encounters Date Type Specialty Care Team Description 06/22/2022 Lab [facility] C.N[facility]P., M.S. [address] [place] [address] [phone] ([place] godoy) 06/22/2022 [facility] C.N .P., M.S. [address] [place] [address] [phone] ([place] god[place]) 06/29/2022 Lab [facility], C.N.P., M.S. [address] [place] [address] [phone] ([place] god[place]) 06/29/2022 [facility] C.N .P., M.S. [address] [place] [address] [phone] ([place] godoy) documented as of this encounter Procedures Procedure Name Priority Date/Time Associated Comments Diagnosis FL FLUORO LESS RAD - Routine 06/03/2022 8:43 Results f or this THAN 1 HOUR (most inpatients AM CDT procedure a re in and all the results outpatients) section. ERCP Routine 06/03/2022 7:37 Results for this AM CDT procedure are i n the results section. EGD Routine 06/03/2022 7:37 (ESOPHAGEALGASTROD AM CDT UODENOSCOPY) US MESENTERIC RAD - Routine 06/02/2022 3:17 Results fo r this ARTERY (most inpatients PM CDT procedure a re in and all the results outpatients) section. BASIC METABOLIC Routine 06/02/2022 5:00 Results f or this PANEL, S/P AM CDT procedure are i n the results section. SARS COV-2 RNA, Routine 06/01/2022 9:12 Results f or this PCR, VARIES PM CDT procedure are i n the results section. VRE PCR Routine 06/01/2022 9:12 Results for this PM CDT procedure are i n the results section. ECG Routine 06/01/2022 9:02 Results for this PM CDT procedure are i n the results section. documented in this encounter Results FL Fluoro Less Than 1 Hour (06/03/2022 8:43 AM CDT) Specimen (Source) Anatomical Location Collection Method / Collectio n Time Received Time / Laterality Volume Narrative ERCP LOS RST - 06/03/2022 8:44 AM CDT This exam does not require a radiologist review or interpretation. Please refer to the patient's medical record on this date for clinical details. Aundrea Mercado M.D. IMTeresa FLUOROSCOPY PROCEDURES Performing Organization Address City/State/ZIP Code Phon e Number ERCP LOS RST ERCP (06/03/2022 7:37 AM CDT) Specimen (Source) Anatomical Collection Method Collection Time Re ceived Time Location / / Volume Laterality 06/03/2022 7:37 AM CDT Impressions [facility] - 06/03/2022 10:42 AM CDT Post-op Diagnoses: ? 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 two coaxial metal biliary stents status-post balloon sweeps with ? clearance of significant sludge. No pus, stones, or strictures. ? - Moderate duodenal stenosis like ly from underlying pancreatic ? malignancy. ? - Two patent cystgastrostomy sten ts (double pigtails) were seen in the ? stomach. Narrative [facility] - 06/03/2022 10:42 AM CDT [facility] GI Patient Name: Aadm Campbell Date of : 1965 Age: 57 Gender: Male Procedure Date: 06/03/2022 Procedure: ? ERCP Providers: ? Basia Chaudhari MD Referring Provider: ?Aundrea george Pre-op Diagnoses: ?Abdominal p ain of suspected biliary origin, Elevated ? jennifer irubin, Bile duct stricture Recommendation: ? - [facility] patient to [facility] for [facility] care. ? - Can resume diet as tolerated. ? - No need to repeat ERCP unless s ymptoms of biliary obstruction or acute ? cholangitis. ? - No need for duodenal stenting o r gastrojejunostomy at this time. In ? the future can be consider if pat ient develops symptoms of gastric ? outlet obstruction. Findings: ? Two biliary stent and two cystgas trostomy double pigtails were visible ? on the rat breeder film. A standard eso phagogastroduodenoscopy scope was used ? for the examination of the upper gastrointestinal tract. The scope was ? passed under direct vision throug h the upper GI tract. The examined ? esophagus was normal. Two previou sly placed cystgastrostomy stents ? (double pigtails) were found hackett nt on the posterior wall of the ? stomach. An acquired known malign ant-appearing, intrinsic stenosis was ? found in the second portion of th e duodenum likely from underlying ? pancreatic malignancy. The stenos is was traversed carefully and with ? minimal palpable resistance. Two previously placed metal biliary stents ? were seen at the major papilla. T he ends of the metal stents were ? visibly occluded with vegetable m aterial reason why it was decided to ? perform ERCP. The therapeutic gas troscope was exchanged for the ? duodenoscope and the stenosis was transversed with advancement of a ? guiding wire and occlusion balloo n to the third portion of the duodenum. ? Two previously placed metal bilia ry stents originating in the biliary ? tree were seen emerging from the major papilla, one within the other. ? The stents were visibly occluded. A 0.035 inch angled Glidewire was ? passed into the biliary tree in a loop configuration. The 8.5 mm balloon ? was passed over the guidewire and the bile duct was then deeply ? cannulated. The biliary tree was swept with an 8.5 mm and 11.5 balloon ? multiple times starting at the bi furcation. Significant amount of sludge ? was swept from the duct. No stone s extracted. Balloon occlusion ? cholangiogram showed a widely pat ent stent, with no stricture ? appreciated. There was prompt dra harrison of contrast and bile at the ? conclusion of the procedure. Procedural Details: ? The patient was seen, evaluated, history reviewed, airway and heart-lung ? exams were performed by licensed provider and were satisfactory for ? planned level of sedation care. T he risks, benefits and alternatives for ? the procedure and sedation were d iscussed and informed consent was ? obtained. A procedural pause was conducted in the presence of assisting ? personnel to verify the correct p atient identity and procedure to be ? performed. Throughout the procedu re, the patient's blood pressure, ? pulse, and oxygen saturations wer e monitored continuously. The ? therapeutic gastroscope was intro duced through the mouth, and advanced ? to the duodenum and used to injec t contrast into the bile duct.The ? Duodenoscope was introduced throu gh the mouth, and advanced to the ? duodenum and used to inject contr ast into the bile duct. The patient was ? seen, evaluated, history reviewed , airway and heart-lung exams were ? performed by licensed provider an d were satisfactory for planned level ? of sedation care. The ERCP was ac complished without difficulty. The ? patient tolerated the procedure w ell. Complications: ? No immedia te complications. Estimated Blood Loss: ?Minimal. Attending Participation: I personally pe rformed the entire procedure. Basia Chaudhari MD 06/03/2022 10:39:00 AM This report has been signed electronical ly. Number of Addenda: 0 Note Initiated On: 06/03/2022 7:37 AM Aundrea Mercado M.D. GI PROCEDURE ORDERABLES Performing Organization Address City/State/ZIP Code Phon e Number SALES PROVATION SALES PROVATION NA US Mesenteric Artery (06/02/2022 3:17 PM CDT) Anatomical Region Laterality Modality Abdomen, Pelvis, Ultrasound RST LOS, Ultrasound ARZ LOS, N/A Ultrasound Ultrasound FLA LOS, Procedural Specimen (Source) Anatomical Collection Method Collection Time Re ceived Time Location / / Volume Laterality 06/02/2022 3:58 PM CDT Impressions 06/02/2022 4:05 PM CDT 1. Normal mesenteric artery ultrasound exam. Specifically, the SMA, SOPHY and celiac arteries are widely patent where seen without evidenc e for stenosis. 2. Normal caliber abdominal aorta. Narrative 06/02/2022 4:05 PM CDT EXAM: US MESENTERIC ARTERY Exam performed with color and spectral D oppler analysis. COMPARISON: CT abdomen/pelvis 06/01/2022 . FINDINGS: Aorta Distal- AP: 1.7 cm Aorta Proximal - (PSV): 88 cm/s Celiac Artery - PSV: 173 cm/s Celiac Artery inspiration-PSV: 109 cm/s Celiac Artery expiration- PSV: 132 cm/s Superior Mesenteric Artery- PSV: 144 cm/ s Inferior Mesenteric Artery- PSV: 153 cm/ s Hepatic artery: 75 cm/s. Procedure Note Kurtis Dillard M.D. - 06/02/2022Fo rmatting of this note might be different from the original. EXAM: US MESENTERIC ARTERY Exam performed with color and spectral D oppler analysis. COMPARISON: CT abdomen/pelvis 06/01/2022 . FINDINGS: Aorta Distal- AP: 1.7 cm Aorta Proximal - (PSV): 88 cm/s Celiac Artery - PSV: 173 cm/s Celiac Artery inspiration-PSV: 109 cm/s Celiac Artery expiration- PSV: 132 cm/s Superior Mesenteric Artery- PSV: 144 cm/ s Inferior Mesenteric Artery- PSV: 153 cm/ s Hepatic artery: 75 cm/s. IMPRESSION: 1. Normal mesenteric artery ultrasound e xam. Specifically, the SMA, SOPHY and celiac arteries are widely patent where seen without evidenc e for stenosis. 2. Normal caliber abdominal aorta. Aundrea Mercado M.D. IMG US PROCEDURES (ABNORMAL) Basic Metabolic Panel (06/02/2022 5:00 AM CDT) P athologist Signature Potassium, S 3.4 (L) 3.6 - 5.2 06/02/2022 DTL mmol/L 5:38 AM CDT Sodium, S 142 135 - 145 06/02/2022 DTL mmol/L 5:38 AM CDT Chloride, S 107 98 - 107 06/02/2022 DTL mmol/L 5:38 AM CDT Bicarbonate, S 26 22 - 29 06/02/2022 DTL mmol/L 5:38 AM CDT Anion Gap 9 7 - 15 06/02/2022 DTL 5:38 AM CDT BUN (Blood Urea 9 8 - 24 06/02/2022 DTL Nitrogen), S mg/dL 5:38 AM CDT Creatinine 0.76 0.74 - 06/02/2022 DTL 1.35 mg/dL 5:38 AM CDT Estimated GFR >90 >=60 06/02/2022 DTL (eGFR) mL/min/BSA 5:38 AM CDT Comment: Estimated GFR calculated using the 2020 CKD_EPI creatinine equation. Calcium, Total, S 8.8 8.6 - 10.0 mg/dL 06/02/2022 5:38 AM CDT DTL Glucose, S 92 70 - 140 mg/dL 06/02/2022 5:38 AM CDT D TL Specimen Anatomical Collection Method Collection Time Receive d Time (Source) Location / / Volume Laterality Blood (Blood, 06/02/2022 5:00 AM 06/02/20 5:21 Venous) CDT AM CDT Quan Cunningham M.D. LAB BLOOD ADD-ON Performing Organization Address City/State/[facility] Phon e Number [facility] - [address] [place], [place] [address] [facility] [place] [address] [facility] [address] [facility] SARS CoV-2 RNA, PCR, Varies Asymptomatic (06/01/2022 9:12 PM CDT) [facility] Method Time Signature SARS CoV-2 Swab, 06/02/2022 DTL RNA, PCR, Nasopharynx 1:35 AM CDT Source SARS CoV-2 Undetected Undetected 06/02/2022 DTL RNA, PCR 1:35 AM CDT Comment: SARS-CoV-2 RNA absent. This result does not rule out COVID-19 in the patient, as the sensitivity of the test depends o n the timing of the specimen collection and quality of the specimen. Result should be correlated with patient's history and clinical presentat ion. ----ADDITIONAL INFORMATION---- This RT-PCR test has received Emergency Use Authorization (EUA) by the U.S. Food and Drug Administration an d is used per window unit air conditioning mechanic's instructions. Performance characteristics were verified by [facility] in a manner consistent with CLIA requirements. Visit the CDC website: https://www.cdc.g ov/coronavirus/ for the most recent guidelines on Coron avirus testing. Fact Sheet for Healthcare Providers: https://www.fda.gov/media/374067/downloa d Fact Sheet for Patients: https://www.fda.gov/media/740974/downloa d Specimen Anatomical Collection Method Collection Time Receive d Time (Source) Location / / Volume Laterality Varies 06/01/2022 9:12 PM 9:36 (Nasopharynx) CDT PM CDT Vishal Ac M.D. LAB MICROBIOLOGY - GENERAL O RDERABLES Performing Organization Address City/[facility] Phon e Number [facility] - [address] [place], [place] [address] [facility] [place] [address] [facility] [address] [facility] VRE PCR (06/01/2022 9:12 PM CDT) [facility] Method Time Signature Specimen Swab, 06/02/2022 DTL Source Perianal 11:02 PM CDT VRE PCR Negative Negative 06/02/2022 DTL 11:02 PM CDT Comment: ----ADDITIONAL INFORMATION---- This test was developed using an analyte specific reagent. Its performance characteristics were determined by [facility] in a manner consistent with CLIA requirements. This test has not bee n cleared or approved by the U.S. Food and Drug Administration. Specimen Anatomical Collection Method Collection Time Receive d Time (Source) Location / / Volume Laterality Varies 06/01/2022 9:12 PM 2 9:37 (Perianal) CDT PM CDT Vishal Ac M.D. LAB MICROBIOLOGY - GENERAL O RDERABLES Performing Organization Address City/[facility]/ZIP Code Phon e Number [facility] - [address] [place] [phone] [facility] [place] [address] [facility] [address] [facility] ECG 12 Lead (06/01/2022 9:02 PM CDT) P athologist Signature Ventricular Rate 73 BPM MUSE ECG/Min DE Interval 182 ms MUSE QRSD Interval 104 ms MUSE QT Interval 418 ms MUSE QTC Interval 460 ms MUSE P [place] 75 degrees MUSE R [place] 18 degrees MUSE T Wave [place] 16 degrees MUSE Specimen Anatomical Collection Method Collection Time Receive d Time (Source) Location / / Volume Laterality 06/01/2022 9:02 PM 2 9:10 CDT PM CDT Impressions MUSE - 06/01/2022 9:10 PM CDT Normal sinus rhythm Normal ECG When compared with ECG of 23-AUG-2021 11 :43, No significant change was found Reviewed by HAROON Anne Narrative This result has an attachment that is no t available. Procedure Note Tim Soas M.D. - 06/01/2022Fo rmatting of this note might be different from the original. IMPRESSION: Normal sinus rhythm Normal ECG When compared with ECG of 23-AUG-2021 11 :43, No significant change was found Reviewed by HAROON Anne Quan Cunningham M.D. 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) Malnutrition Severe Protein-Calorie (HCC ) Pain Neuropathic Dehydration documented in this encounter Admitting Diagnoses Diagnosis Abdominal Pain documented in this encounter Administered Medications Inactive Administered Medications - up to 3 most recent administrations Medication Order MAR Action Action Date Dose Rate Site baclofen tablet 10 mg (LIORESAL) Given 06/02/2022 8:04 PM CDT 10 mg 10 mg, oral, Daily, First dose on Mon06/02/22 at 0900 bisacodyL suppository 10 mg (DULCOLAX) 10 mg, rectal, Daily, First dose (after last modification) on Mon06/03/22 at 0900, Ordered sequence of administration: poly ethylene glycol, then bisacodyl until BM achieved. gabapentin capsule 300 mg (NEURONTIN) Given 06/02/2022 8:03 PM CDT 300 mg 300 mg, oral, Daily at bedtime, First dose on Mon06/01/22 at 2100 Given 06/01/2022 9:40 PM CDT 300 mg heparin flush 500 Units Given 06/03/2022 1:19 PM CDT 500 Units 500 Units, intra-catheter, During hospitalization, line care, Prior to discharge, Starting on Mon06/03/22 at 1316, For 1 dose, Implanted Vascular Access Device (IVAD) Venous Non-Valved: Following saline flush prior to discharge. HYDROmorphone (PF) injection 1 mg (DILAU DID) Given 06/01/2022 3:58 PM CDT 1 mg 1 mg, intravenous, Once, On Mon06/01/22 at 1550, For 1 dose HYDROmorphone (PF) injection 1 mg (DILAU DID) Given 06/01/2022 4:42 PM CDT 1 mg 1 mg, intravenous, Every 30 min PRN, severe pain or score 7-10 of 10, Starting on Mon06/01/22 at 1549, For 3 doses HYDROmorphone (PF) injection 1.5 mg (DIL AUDID) 1.5 mg, intravenous, Every 4 hours PRN, severe pain or score 7-10 of 10, Starting on Mon06/02/22 at 1145, To be used after PO dilaudid HYDROmorphone tablet 4 mg (DILAUDID) Given 06/01/2022 2:44 PM CDT 4 mg 4 mg, oral, Once, On Mon06/01/22 at 1440, For 1 dose HYDROmorphone tablet 4 mg (DILAUDID) Given 06/02/2022 6:49 AM CDT 4 mg 4 mg, oral, Every 6 hours PRN, severe pain or score 7-10 of 10, Starting on Mon06/01/22 at 2046, Indications: Chronic Pain/Nonacute Pain Given 06/01/2022 9:40 PM CDT 4 mg HYDROmorphone tablet 6 mg (DILAUDID) 6 mg, oral, Every 4 hours PRN, severe pain or score 7- 10 of 10, Starting on Mon06/02/22 at 1200, Indications: Chronic Pain/Nonacute Pa in ketamine injection 20 mg (KETALAR) Given 06/01/2022 6:45 PM CDT 20 mg 20 mg, intravenous, Once, On Mon06/01/22 at 1840, For 1 dose, Put in 50mL 0.9% and give over 15 minutes lactated Ringer's bolus 500 mL New Bag 06/02/2022 12:52 PM CDT 500 mL 500 mL/hr 500 mL, intravenous, at 500 mL/hr, Administer over 1 Hours, Once, On Mon06/02/22 at 1245, For 1 dose gevmnj-fwfiefzh-bkzxcnj Given 06/02/2022 8:04 PM CDT 24,000 Unit s of 24,000-76,000-120,[address] lipase capsule 24,000 Units of lipase (CREON) 24,000 Units of lipase, oral, As needed, snacks, Starting on Mon06/02/22 at 1008, Do NOT crush or chew. Capsule may be opened and the contents taken without crushing or chewing. Given 06/02/2022 12:27 PM CDT 24,000 Units of lipase tviaaa-dfepntub-nbfvtcm Given 06/03/2022 12:56 PM 48,000 Units o f 24,000-76,000-120,[address] CDT lipase capsule 48,000 Units of lipase (CREON) 48,000 Units of lipase, oral, 3 times daily with meals, First dose on Mon06/02/22 at 1000, Do NOT crush or chew. Capsule may be opened and the contents taken without crushing or chewing. Given 06/03/2022 10:45 AM CDT 48,000 Units of lipase Given 06/02/2022 4:38 PM CDT 48,000 Units of lipase drfagr-ilbxcyte-jghcrmo Given 06/01/2022 10:01 PM 96,000 Units o f 24,000-76,000-120,[address] CDT lipase capsule 96,000 Units of lipase (CREON) 96,000 Units of lipase, oral, Once, On Mon06/01/22 at 1736, For 1 dose, Do NOT crush or chew. Capsule may be opened and the contents taken without crushing or chewing. melatonin tablet 3 mg 3 mg, oral, Daily at bedtime, First dose on Mon 2 at 2100 OLANZapine tablet 5 mg (ZyPREXA) Given 06/01/2022 9:40 PM CDT 5 mg 5 mg, oral, Daily at bedtime, First dose on Mon06/01/22 at 2100 ondansetron (PF) injection 4 mg (ZOFRAN) Given 06/01/2022 4:18 PM CDT 4 mg 4 mg, intravenous, Once, On Mon06/01/22 at 1615, For [address] tablet 40 mg (PROTONIX) Given 06/03/2022 10:45 AM CDT 40 mg 40 mg, oral, 2 times daily before breakfast and dinner, First dose on Mon06/02/22 at 0700, Swallow whole. Do NOT crush, chew, or split tablet. Given 06/02/2022 4:38 PM CDT 40 mg Given 06/02/2022 6:46 AM CDT 40 mg polyethylene glycol powder packet 17 g ( MIRALAX) 17 g, oral, Every 12 hours, First dose ( after last modification) on Mon06/03/22 at 0700, Ordered sequence of administration : polyethylene glycol, then bisacodyl until BM achieved. Avoid mixing with starch-based thickened liquids. potassium chloride packet 60 mEq (KLOR-C ON) Given 06/01/2022 10:01 PM CDT 60 mEq 60 mEq, oral, Once, On Mon06/01/22 at 2115, For 1 dose, For K<3 mEq/L - give 60 mEq Dissolve one packet in 4-5 ounces of water or other beverage prior to administration., Monitor the following for replacement: Potassium, Replace Potassium per: Standard Schedule sennosides-docusate sodium 8.6-50 mg per Given 06/02/2022 8:03 P M CDT 1 tablet tablet 1 tablet (SENOKOT-S) 1 tablet, oral, 2 times daily, First dose on Mon06/01/22 at 2100, Do not give if patient has diarrhea. Given 06/02/2022 8:01 AM CDT 1 tablet Given 06/01/2022 9:40 PM CDT 1 tablet sennosides-docusate sodium 8.6-50 mg per tablet 1 tablet (SENOKOT-S) 1 tablet, oral, 2 times daily PRN, const ipation, Starting on Mon06/03/22 at 0700, Do not give if patient has diarrhea. sodium chloride 0.9 % injection 10 mL Given 06/03/2022 1:19 PM CDT 10 mL 10 mL, intravenous, As needed, line care, Starting on Mon06/01/22 at 2047, Peripheral Intravenous Catheter and Rapid Infusion Catheter, prior to blood sampling, post blood transfusion or post blood sampling Given 06/03/2022 9:50 AM CDT 10 mL documented in this encounter Active and Recently Administered Medications Times are shown in CDT. Scheduled Medication Order 06/01/2022 06/02/2022 06/03/2022 baclofen tablet 10 mg (LIORESAL) 2003 (G iven - Provider: Rufina Godoy R.N.) 10 mg, oral, Daily, First dose on Mon06/02/22 at 0900 bisacodyL suppository 10 mg (DULCOLAX) 1317 (Not Given - Provider: Jae Mari R.N. - Reason: Patient/family refused) 10 mg, rectal, Daily, First dose (after last modification) on Mon06/03/22 at 0900, Ordered sequence of administration: polyethylene glycol, then bisacodyl until BM achieved. gabapentin capsule 300 mg (NEURONTIN) 2139 (Given - Pr ovider: Herminia Phillips RMariajose) 2002 (Given - Provider: Rufina Godoy R.N.) 300 mg, oral, Daily at bedtime, First dose on Mon06/01/22 at 210 0 HYDROmorphone (PF) injection 1 mg (DILAUDID) (COMPLETE D) 1558 (Given - Provider: Ady Tavarez R.N., [facility]) 1 mg, intravenous, Once, On Mon06/01/22 at 1550, For 1 dose HYDROmorphone tablet 4 mg (DILAUDID) (COMPLETED) 1444 (Given - Provider: Thais Chanel R.NRiaz) 4 mg, oral, Once, On Mon06/01/22 at 1440, For 1 dose ketamine injection 20 mg (KETALAR) (COMPLETED) 1845 (G iven - Provider: Aleksandra Jacques RRiazN. - Comment: Ketamine 20mg into 50ml bag of 0.9. given over 15 minutes with IV pump.) 20 mg, intravenous, Once, On Mon06/01/22 at 1840, For 1 dose, Put in 50mL 0.9% and give over 15 minutes lactated Ringer's bolus 500 mL (COMPLETED) 1252 (New Bag - Provider: Ana Henson R.NRiaz) 500 mL, intravenous, at 500 mL/hr, Admin ister over 1 Hours, Once, On Mon06/02/22 at 1245, For 1 dose wpihna-kstbxork-ydcfxrl 24,000-76,000-12 0,[address] capsule 48,000 Units of lipase (CREON) 1041 (Given - Provider: Anthony Henson R.N.)1638 (Given - Provider: Ginna Montgomery R.N.) 1045 (Given - Provider: Kandy Francisco R.NRiaz)1256 (Given - Provider: Rachel Gómez R.NRiaz) 48,000 Units of lipase, oral, 3 times da elvie with meals, First dose on Mon06/02/22 at 1000, Do NOT crush or chew. Capsule may be opened and the contents taken without crushing or chewing. dzmnhp-aahnyzxw-xfpfxeu 24,000-76,000-12 0,[address] capsule 96,000 Units of lipase (CREON) (COMPLETED) 2201 (Given - Provider: Herminia Phillips R.N.) 96,000 Units of lipase, oral, Once, On ed 06/01/22 at 1736, For 1 dose, Do NOT crush or chew. Capsule may be opened and the contents taken without crushing or chewing. melatonin tablet 3 mg 2231 (Not Given - Provider: Rufina Godoy R.N. - Reason: Patient/family refused) 3 mg, oral, Daily at bedtime, First dose on Mon06/02/22 at 2100 OLANZapine tablet 5 mg (ZyPREXA) 2139 (Given - Provide r: Herminia Phillips R.N.) 2231 (Not Given - Provider: Rufina beavers R.N. - Reason: Patient/family refused) 5 mg, oral, Daily at bedtime, First dose on Mon06/01/22 at 2100 ondansetron (PF) injection 4 mg (ZOFRAN) (COMPLETED) 1 618 (Given - Provider: Aleksandra Jacques R.N.) 4 mg, intravenous, Once, On Mon06/01/22 at 1615, For [address] tablet 40 mg (PROTONIX) 0646 (Given - Provider: Rufina Godoy R.N.)1638 (Given - Provider: Ginna Montgomery R.N.) 1045 (Given - Provider: Kandy Francisco RRiazNRiaz) 40 mg, oral, 2 times daily before breakf ast and dinner, First dose on Sandra 06/02/22 at 0700, Swallow whole. Do NOT crush, chew, or split tablet. polyethylene glycol powder packet 17 g (MIRALAX) 1317 (Not Given - Provider: Jae Mari RRiazNRiaz - Reason: Patient not available) 17 g, oral, Every 12 hours, First dose ( after last modification) on Mon06/03/22 at 0700, Ordered sequence of administration: polyethylene glycol, then bisacodyl until BM achieved. Avoid mixing with starch-based thickened liquids. potassium chloride packet 60 mEq (KLOR-CON) (COMPLETED ) 2200 (Given - Provider: Herminia Phillips R.N.) 60 mEq, oral, Once, On Mon06/01/22 at 21 15, For 1 dose, For K<3 mEq/L - give 60 mEq Dissolve one packet in 4-5 ounces of water or other beverage prior to administration., Monitor the following for re placement: Potassium, Replace Potassium per: Standard Schedule sennosides-docusate sodium 8.6-50 mg per tablet 1 tabl et (SENOKOT-S) (CANCELED) 2139 (Given - Provider: Herminia Phillips R.N.) 08 (Given - Provider: Ana Henson R.N.)2002 (Given - Provider: Rufina Godoy R.N.) 1 tablet, oral, 2 times daily, First dos e on Mon06/01/22 at 2100, Do not give if patient has diarrhea. sodium chloride 0.9 % injection 3 mL 2146 (Not Given - Provider: Herminia Phillips R.N. - Reason: Order parameters not met) 101 (Not Given - Provider: Ana Henson R.N. - Reason: Other)2004 (Not Given - Provider: Rufina Godoy R.N. - Reason: Other) 1317 (Not Given - Provider: Jae mccarthy RRiazNRiaz - Reason: Patient not available) 3 mL, intravenous, Every 12 hours schedu led, First dose on Mon06/01/22 at 2100, Peripheral Intravenous Catheter and Rapid Infusion Catheter, when no infusion to maintain patency traZODone tablet 50 mg (DESYREL) 3 (N ot Given - Provider: Rufina Godoy R.N. - Reason: Patient/family refused) 50 mg, oral, Daily at bedtime, First dose on Sandra 06/02/22 at 2100 PRN Medication Order 06/01/2022 06/02/2022 06/03/2022 acetaminophen tablet 1,000 mg (TYLENOL) 1,000 mg, oral, Every 6 hours PRN, mild pain or score 1-3 of 10, headaches, fever, Starting on Mon06/01/22 at 2047, Not to exceed 4 grams of acetaminophen in 24 hours all sources heparin flush 500 Units (COMPLETED) 1319 (Given - Provider: Rachel Gómez R.N.) 500 Units, intra-catheter, During hospit alization, line care, Prior to discharge, Starting on Mon06/03/22 at 1316, For 1 dose, Implanted Vascular Access Device (IVAD) Venous Non-Valved: Following saline flush prior to discharge. HYDROmorphone (PF) injection 1 mg (DILAUDID) (CANCELED ) 1642 (Given - Provider: Aleksandra Jacques RRiazNRiaz) 1 mg, intravenous, Every 30 min PRN, sev ere pain or score 7-10 of 10, Starting on Mon06/01/22 at 1549, For 3 doses HYDROmorphone (PF) injection 1.5 mg (DILAUDID) 1.5 mg, intravenous, Every 4 hours PRN, severe pain or score 7-10 of 10, Starting on Mon06/02/22 at 1145, To be used after PO dilaudid HYDROmorphone tablet 4 mg (DILAUDID) (CANCELED) 2139 ( Given - Provider: Herminia Phillips R.N.) 0649 (Given - Provider: Rufina Godoy RMariajose) 4 mg, oral, Every 6 hours PRN, severe pa in or score 7-10 of 10, Starting on Mon06/01/22 at 2046, Indications: Chronic Pain/Nonacute Pain HYDROmorphone tablet 6 mg (DILAUDID) 6 mg, oral, Every 4 hours PRN, severe pa in or score 7-10 of 10, Starting on Mon06/02/22 at 1200, Indications: Chronic Pain/Nonacute Pain vseglk-kxmxipbs-fcerhcl 24,000-76,000-12 0,[address] capsule 24,000 Units of lipase (CREON) 1227 (Given - Provider: Ac Montgomery RRiazNRiaz)2004 (Given - Provider: Rufina Godoy R.N.) 24,000 Units of lipase, oral, As needed, snacks, Starting on Mon06/02/22 at 1008, Do NOT crush or chew. Capsule may be opened and the contents taken without crushing or chewing. ondansetron ODT disintegrating tablet 4 mg (ZOFRAN-ODT) 4 mg, oral, Every 6 hours PRN, nausea, v omiting, Starting on Mon06/01/22 at 2047, When splitting ODT at bedside, handle with gloves and a pill splitter to prevent moisture contact. sennosides-docusate sodium 8.6-50 mg per tablet 1 tablet (SENOKO T-S) 1 tablet, oral, 2 times daily PRN, const ipation, Starting on Mon06/03/22 at 0700, Do not give if patient has diarrhea. sodium chloride 0.9 % injection 10 mL 0950 (Given - Provider: Kandy Francisco RRiazNRiaz)1319 (Given - Provider: Rachel Gómez R.N.) 10 mL, intravenous, As needed, line care , Starting on Mon06/01/22 at 2046, Peripheral Intravenous Catheter and Rapid Infusion Catheter, prior to blood sampling, post blood transfusion or post blood sampling sodium chloride 0.9 % injection 3 mL 3 mL, intravenous, As needed, line care, Starting on Mon06/01/22 at 2046, Prior to and following infusion and between multiple consecutive infusions: sodium chloride 0.9 % injection documented in this encounter Additional Health Concerns Infection Onset Date Last Indicated Resolved Time COVID19 Pending 06/01/2022 06/01/2022 06/02/2022 1:36 AM CDT Assessment Noted Time PHQ-9 Depression Total Score: 2 10/01/2021 10:34 AM CS T documented as of this encounter Care Teams Bridge Opener Relationship Specialty Start Date End Date Elsewhere, Pcp PCP - General Family Medicine 08/12/20 documented as of this encounter
--- OUTSIDE RECORDS SUMMARY | 2022-06-18 15:59 | XMS_ITS | Encounter Summary ---
:1965 Author Organization [facility] Address [address] [place] [address] Care Team Providers Name Role Phone Elsewhere, Pcp Primary Care Provider Unavailable Reason for Visit Reason Comments Med Refill Diladid Encounter Details Date Type Department Care Team Description 06/15/2022 Clinical Department of [facility] Med Refill Communication Oncology in [place] [facility] (Diladiphyllis) [facility] [address] [facility] [address] [place] [phone] Social History Tobacco Use Types Packs/Day Years [...] er 01/15/2021 How often do you attend restorationism or samaritan services? Never 01/15/2021 Do you belong to any clubs or organizations such as restorationism N o 01/15/2021 groups, unions, fraternal or [...] place to sleep or slept in a long term (including now)? Education Answer Date Recorded What is the highest level of school you have completed or 12 th grade 01/15/2021 the highest degree you have received? 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 [address] [place] [address] [phone] (Mj godoy) 06/22/2022 Infusion Oncology VonaMaria Del Rosario pierre APRN, C.N .P., M.S. [address] [place] [address] [phone] (Mj godoy) 06/29/2022 Lab Laboratory Medicine Maria Del Rosario Gomez AP RN, C.N.P., M.S. [address] [place] [address] [phone] (Mj godoy) 06/29/2022 Infusion Oncology Maria Del Rosario Gomez APRN, C.N .P., M.S. [address] [place] [address] [phone] (Mj godoy) documented as of this encounter Visit Diagnoses Not on filedocumented in this encounter Additional Health Concerns Assessment Noted Time PHQ-9 Depression Total Score: 2 10/01/2021 10:34 AM CS T documented as of this encounter Care Teams Steam Power Plant Operator Relationship Specialty Start Date End Date Elsewhere, Pcp PCP - General Family Medicine 08/12/20 documented as of this encounter
--- OUTSIDE RECORDS SUMMARY | 2022-06-18 15:59 | XMS_ITS | Encounter Summary ---
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 [address] [place] [address] Referral ID Status Reason Start Date Expiration Date Visits Requ ested Visits Authorized [id number] Closed 06/07/2022 06/07/2023 1 1 Scheduling Instructions VIR ANNABEL SMOP Encounter Details Date Type Department Care Team Description 06/07/2022 Orders Only Department of Radiology Lisseth Salgado alignant Neoplasm Of Pancreas (HCC) (Primary Dx); in [facility] elke Chilel RRiazNRiaz Secondary Malignant Neoplasm Liver (HCC) ; [address] [facility] [address] [facility] [place] [phone] Social History Tobacco Use Types Packs/Day Years [...] er 01/15/2021 How often do you attend amish or congregation services? Never 01/15/2021 Do you belong to any clubs or organizations such as amish N o 01/15/2021 groups, unions, fraternal or [...] place to sleep or slept in a correction (including now)? Education Answer Date Recorded What is the highest level of school you have completed or 12 th grade 01/15/2021 the highest degree you have received? 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 [address] [place] [address] [phone] (Mj rk) 06/22/2022 Infusion Oncology Maria Del Rosario Gomez APRN, C.N .P., M.S. [address] [place] [address] [phone] (Wo rk) 06/29/2022 Lab Laboratory Medicine Maria Del Rosario Gomez AP RN, C.N.P., M.S. [address] [place] [address] [phone] (Wo rk) 06/29/2022 Infusion Oncology Maria Del Rosario Gomez APRN, C.N .P., M.S. [address] [place] [address] [phone] (Wo rk) Scheduled Referrals Name Type Priority Associated Order Schedule Diagnoses Interventional Outpatient Referral Routine Malignant Neoplasm Expected: Radiology - General Of Pancreas (HCC) 06/08/2022, consult (clinic) Secondary Expires: Malignant Neoplasm 3 Liver (HCC) Portal Vein Thrombosis documented as of this encounter Visit Diagnoses Diagnosis Malignant Neoplasm Of Pancreas (HCC) - P rimary Secondary Malignant Neoplasm Liver (HCC) Portal Vein Thrombosis documented in this encounter Additional Health Concerns Assessment Noted Time PHQ-9 Depression Total Score: 2 10/01/2021 10:34 AM CS T documented as of this encounter Care Teams Paint Tinter Relationship Specialty Start Date End Date Elsewhere, Pcp PCP - General Family Medicine 08/12/20 documented as of this encounter
--- OUTSIDE RECORDS SUMMARY | 2022-06-18 15:59 | XMS_ITS | Encounter Summary ---
:1965 Author Organization [facility] Address [address] [place] [address] Care Team Providers Name Role Phone Elsewhere, Pcp Primary Care Provider Unavailable Reason for Visit Auth/Cert Specialty Diagnoses / Procedures Referred By Contact Refer red To Contact Diagnoses Malignant Neoplasm Of Pancreas (HCC) Secondary Malignant Neoplasm Liver (HCC) Portal Vein Thrombosis Procedures IR PORTAL VENOGRAM PERCUTANEOUS WITH PRESSURES Referral ID Status Reason Start Date Expiration Date Visits Requ ested Visits Authorized [id number] 1 1 Encounter Details Date Type Department Care Team Description 06/09/2022 Hospital Encounter Department of Bakari Gomez APRN, C.N.P., M.S. [address] [place] [phone] Malignant Neoplasm Of Pancreas (HCC); Radiology in Raymond Harrison M.D. [address] [place] [phone] Secondary Malignant Neoplasm Liver (HCC) ; [place], [place] Portal Vein Thrombosis [address] [place] [phone] Social History Tobacco Use Types Packs/Day Years [...] er 01/15/2021 How often do you attend voodoo or druze services? Never 01/15/2021 Do you belong to any clubs or organizations such as voodoo N o 01/15/2021 groups, unions, fraternal or [...] place to sleep or slept in a group home (including now)? Education Answer Date Recorded What is the highest level of school you have completed or 12 th grade 01/15/2021 the highest degree you have received? Sex Assigned at Date Recorded Male 08/18/2021 2:55 PM [employer] documented as of this encounter Last Filed Vital Signs Vital Sign Reading Time Taken Comments Blood Pressure 126/87 06/09/2022 3:58 PM CDT Pulse 60 06/09/2022 3:58 PM CDT Temperature 36.3 ??C (97.3 ??F) 06/09/2022 2:28 PM CDT Respiratory Rate 18 06/09/2022 3:58 PM CDT Oxygen Saturation 100% 06/09/2022 3:58 PM CDT Inhaled Oxygen Concentration - - Weight 72.7 kg (160 lb 4.4 oz) 06/09/2022 3:51 PM CDT Height - - Body Mass Index 23.13 06/06/2022 11:01 AM CDT documented in this encounter Discharge Instructions Discharge Instr - Lola Valadez APRN, C.N.P., D.N.P. - 06/09/2022 1:21 PM CDT Care for the percutaneous puncture site Keep dressing in place over puncture site for 48 hours. 48 hours after procedure you may shower, remove the dressing and clean and rinse the puncture site gently with soap and water. If you have drainage or crusting at the insertion site, gently but thoroughly clean the site using awash cloth are cotton tip swab with soap and water. After removing the dressing and cleaning the site, allow the area to air dry or pat dry with a cleantowel. You may reapply a Band-Aid to the puncture site or leave open to air. Do not submerge puncture site in water such as tub bathing or swimming until completely healed. Seeking emergency care If you have the following symptoms, contact your health care provider immediately or seek emergency care if your health care provider is not available: A temperature of 101 degrees Fahrenheit (38.3 degrees Celsius) or higher Chills Severe abdominal pain Drainage that has blood in it for more than 24 hours. Bleeding from the puncture site that lasts longer than 24 hours AttachmentsThe following attachments cannot be sent through Care Everywhere.Care Following a Needle Biopsy with Sedation (Syriac)documented in this encounter Medications at Time of Discharge Medication Sig Dispensed Refills Start Date End Date baclofen (LIORESAL) 10 Take 1 tablet (10 mg 90 tablet 3 03/202208/26/2022 mg tablet total) by mouth daily. Creon 24,000-76,000 TAKE 1 TO 3 CAPSULES 120 capsule 2 05/23 -120,000 unit capsule BY MOUTH THREE TIMES DAILY WITH MEALS LORazepam (ATIVAN) 0.5 Take 2-4 tablets 60 tablet 2 022 mg tablet (1-2 mg total) by mouth every 6 (six) hours as needed for anxiety. OLANZapine (ZyPREXA) 5 Take 1 tablet (5 mg 30 tablet 3 03/12 mg tablet total) by mouth at bedtime. ondansetron (ZOFRAN) 8 Take 1 tablet (8 mg 30 tablet 3 03/1103/21/2023 mg tabletIndications: total) by mouth Malignant Neoplasm Of every 8 (eight) Pancreas (HCC) hours as needed for nausea or vomiting. ondansetron ODT Dissolve 1 tablet (8 30 tablet 3 06/06/2022 (ZOFRAN-ODT) 8 mg mg total) in the disintegrating tablet mouth every 8 (eight) hours as needed for nausea or vomiting. pantoprazole (PROTONIX) Take 1 tablet (40 mg 180 tablet 0 40 mg EC tablet total) by mouth 2 (two) times a day before breakfast and dinner. lidocaine-prilocaine Apply 1 application 30 g 3 2021 (EMLA) 2.5-2.5 % cream topically as needed for pain. Apply to port site. medical cannabis Take by mouth. THC component: 0 capsule CBD component: polyethylene glycol Take 1 packet (17 g [...] increase to 100 mg daily at bedtime. gabapentin (NEURONTIN) Take 3 capsules (900 90 [...] 4-6 of 10 Indication: Chronic Pain/Nonacute Pain. documented as of this encounter Progress Notes Lola Cisneros APRN, C.N.P., D.N.P. - 06/09/2022 2:33 PM CDT VASCULAR INTERVENTIONAL RADIOLOGY POST-PROCEDURE RECOVERY NOTE PROCEDURE PERFORMED AND DESCRIPTION Transhepatic portal venogram with portal vein stenting. HISTORY OF PRESENT ILLNESS 57 y.o. male with past medical history significant for metastatic pancreatic cancer, cholangitis, biliary stricture status post stenting, and pancreatitis after ERCP. Last CT demonstrated increased tumor encasement of the upper SMV with subsequent progression of narrowing. Presents to Vascular Interventional Radiology today for scheduled transhepatic portal venogram for stenting. CURRENT MEDICATIONS No current facility-administered medications on file prior to encounter. Current Outpatient Medications on File Prior to Encounter Medication Sig Dispense Refill baclofen (LIORESAL) 10 mg tablet Take 1 tablet (10 mg total) by mouth daily. 90 tablet 3 Creon 24,000-76,000 -120,000 unit capsule TAKE 1 TO 3 CAPSULES BY MOUTH THREE TIMES DAILY WITH MEALS 120 capsule 2 gabapentin (NEURONTIN) 300 mg capsule Take 3 capsules (900 mg total) by mouth at bedtime. 90 capsule 1 HYDROmorphone (DILAUDID) 2 mg tablet Take 2-3 tablets (4-6 mg total) by mouth every 4 (four) hours as needed for severe pain or score 7-10 of 10 or moderate pain or score 4-6 of 10 Indication: ChronicPain/Nonacute Pain. 30 tablet 0 LORazepam (ATIVAN) 0.5 mg tablet Take 2-4 tablets (1-2 mg total) by mouth every 6 (six) hours as needed for anxiety. 60 tablet 2 OLANZapine (ZyPREXA) 5 mg tablet Take 1 [...] before breakfast and dinner. 180 tablet 0 heparin 100 unit/mL syringe 5 mL (500 [...] 0.9% Sodium Chloride flush 60 mL 3 lidocaine-prilocaine (EMLA) 2.5-2.5 % cream Apply 1 application topically as needed for pain. Applyto port site. 30 g 3 medical cannabis capsule Take by mouth. THC component: CBD component: polyethylene glycol (MIRALAX) 17 gram powder packet [...] 100 mg daily at bedtime.30 tablet 1 VITAL SIGNS Vitals: 06/09/22 1428 BP: 127/78 Pulse: Resp: 13 Temp: 36.3 ??C SpO2: 99% ALLERGIES Allergies Allergen Reactions Compazine [Prochlorperazine] GI intolerance Ranitidine Hcl Diarrhea PHYSICAL EXAMINATION Vitals reviewed. Constitutional General: He is not in acute distress. Pulmonary Effort: Pulmonary effort is normal. Abdominal Comments: Right upper quadrant puncture site covered dressing is clean dry intact. No signs of bleeding or underlying hematoma to palpation. Neurological Mental Status: He is alert. ASSESSMENT/RECOVERY DISPOSITION Very pleasant 57 y.o. male with past medical history significant for metastatic pancreatic cancer, cholangitis, biliary stricture status post stenting, and pancreatitis after ERCP. Last CT demonstratedincreased tumor encasement of the upper SMV with subsequent progression of narrowing. He underwent transhepatic portal venogram with portal vein stenting today with Dr. Harrison and vascular IR. Access was obtained via percutaneous right midaxillary approach. Patient is seen in the recovery room and describing 6-03/20. He typically takes Dilaudid po at home for pain. Appears hemodynamically stable. PLAN -Bedrest for 2 hours with head elevated to patient comfort. -Routine monitoring of puncture site for signs of bleeding or hematoma, care instructions can be found in AVS -Dilaudid po and Tylenol available as needed for pain -discharge appropriate once bedrest complete and meeting all discharge criteria. -upon further evaluation and discussion with Dr. Harrison, starting aspirin is not indicated -follow up with Oncology as directed Please page VIR NPPA at [phone] M-F 7AM-5PM or on-call resident at [phone] after 5PM and weekends. documented in this encounter Plan of Treatment Upcoming Encounters Date Type Specialty Care Team Description 06/22/2022 Lab Laboratory Medicine Maria Del Rosario Gomez AP RN, C.N.P., M.S. [address] [place] [phone] (Mj rk) 06/22/2022 Infusion Oncology Maria Del Rosario Gomez APRN, C.N .P., M.S. [address] [place] [phone] (Mj rk) 06/29/2022 Lab Laboratory Medicine Maria Del Rosario Gomez AP RN, C.N.P., M.S. [address] [place] [phone] (Mj rk) 06/29/2022 Infusion Oncology Maria Del Rosario Gomez APRN, C.N .P., M.S. [address] [place] [phone] (Mj rk) documented as of this encounter Procedures Procedure Name Priority Date/Time Associated Comments Diagnosis IR TRANSHEPATIC RAD - Routine 06/09/2022 2:20 Malignant Results for this PORTAL VENOGRAM (most inpatients PM CDT Neoplasm Of procedur e are in and all Pancreas (HCC) the results outpatients) Secondary section. Malignant Neoplasm Liver (HCC) Portal Vein Thrombosis ADULT OXYGEN Routine 06/09/2022 12:47 THERAPY PM CDT documented in this encounter Results IR Transhepatic Portal Venogram (06/09/2022 2:20 PM CDT) Anatomical Region Laterality Modality Abdomen, Vascular Interventional RST LOS, Vascular N/A X-Ray Angiography Interventional ARZ LOS, Vascular Interventional FLA LOS Specimen (Source) Anatomical Collection Method Collection Time Re ceived Time Location / / Volume Laterality 06/09/2022 4:14 PM CDT Impressions 06/09/2022 4:17 PM CDT Uncomplicated transhepatic portal venography with stenting of the encased superior mesenteric vein NR Narrative 06/09/2022 4:17 PM CDT EXAM: IR TRANSHEPATIC PORTAL VENOGRAM CLINICAL HISTORY: Pancreatic cancer. Enc asement of the portal vein. TECHNIQUE: From the right mid axillary a pproach a 22-gauge Chiba needle was advanced into the liver and small amounts of contrast injected u ntil a branch of the portal vein was entered. Guidewire advanced into the portal system followed by an AccuStick introducer. Using this for access venograms were obtained by injecting the portal, s plenic, and superior mesenteric veins. This demonstrates a tight narrowing at the confluence of the superior mesenteric and portal veins. Abundant collaterals. Mild narrowing of the splenic vein. The AccuStick introducer was exchanged for a 6 Polish sheath and a 12 mm in diameter by 40 mm long self-e xpanding stent deployed. This was post dilated to 10 mm. Follow-up venogram shows the stent is wi rosalba patent, and flow is no longer seen in the collateral veins. Transhepatic tract was occluded w ith coils and the sheath removed. No immediate complications. PREPROCEDURE: Patient seen, evaluated, h istory reviewed, and approved for sedation. Airway, heart, and lung exam satisfactory for sedation. Discussed risks, benefits, alternatives for procedure, and/or sedation. The roles and responsib ilities of care team members, residents, and fellows were discussed. Patient understands informati on and questions answered. Informed consent obtained from the patient. Immediately prior to starti ng the procedure, in the presence of the assisting personnel, a procedural pause was conduc sally to verify correct patient identity and verification of procedure to be performed, and as applic able, correct side and site, correct patient position, availability of implants, special equipm ent, or special requirements, and all image and specimen identification data. INTRAPROCEDURE: Moderate sedation was ad ministered by sedation nurse under my supervision. The patient was continuously monitored with real time oxygen saturation, heart rate, ECG rhythm strip and blood pressure throughout administra tion of the sedation and performance of the procedure. The total intra-procedural sedation time was : 43 minutes. Procedure Note Raymond Harrison M.D. - 06/09/2022Forma tting of this note might be different from the original. EXAM: IR TRANSHEPATIC PORTAL VENOGRAM CLINICAL HISTORY: Pancreatic cancer. Enc asement of the portal vein. TECHNIQUE: From the right mid axillary a pproach a 22-gauge Chiba needle was advanced into the liver and small amounts of contrast injected u ntil a branch of the portal vein was entered. Guidewire advanced into the portal system followed by an AccuStick introducer. Using this for access venograms were obtained by injecting the portal, s plenic, and superior mesenteric veins. This demonstrates a tight narrowing at the confluence of the superior mesenteric and portal veins. Abundant collaterals. Mild narrowing of the splenic vein. The AccuStick introducer was exchanged for a 6 Polish sheath and a 12 mm in diameter by 40 mm long self-e xpanding stent deployed. This was post dilated to 10 mm. Follow-up venogram shows the stent is wi rosalba patent, and flow is no longer seen in the collateral veins. Transhepatic tract was occluded w ith coils and the sheath removed. No immediate complications. PREPROCEDURE: Patient seen, evaluated, h istory reviewed, and approved for sedation. Airway, heart, and lung exam satisfactory for sedation. Discussed risks, benefits, alternatives for procedure, and/or sedation. The roles and responsib ilities of care team members, residents, and fellows were discussed. Patient understands informati on and questions answered. Informed consent obtained from the patient. Immediately prior to starti ng the procedure, in the presence of the assisting personnel, a procedural pause was conduc sally to verify correct patient identity and verification of procedure to be performed, and as applic able, correct side and site, correct patient position, availability of implants, special equipm ent, or special requirements, and all image and specimen identification data. INTRAPROCEDURE: Moderate sedation was ad ministered by sedation nurse under my supervision. The patient was continuously monitored with real time oxygen saturation, heart rate, ECG rhythm strip and blood pressure throughout administra tion of the sedation and performance of the procedure. The total intra-procedural sedation time was : 43 minutes. IMPRESSION: Uncomplicated transhepatic portal venogr aphy with stenting of the encased superior mesenteric vein NR Maria Del Rosario Gomez APRN, C.N.P., M.S. IMG IR PROCEDURES documented in this encounter Visit Diagnoses Diagnosis Malignant Neoplasm Of Pancreas (HCC) Secondary Malignant Neoplasm Liver (HCC) Portal Vein Thrombosis documented in this encounter Administered Medications Inactive Administered Medications - up to 3 most recent administrations Medication Order MAR Action Action Date Dose Rate Site cefTRIAXone injection 2 g Given 06/09/2022 11:58 AM CDT 2 g (ROCEPHIN) 2 g, intravenous, Once, On Sandra 06/09/22 at 1130, For 1 dose, Preprocedure (RAD), Administer within 1 hour prior to surgical incision If needed, reconstitute vial per package insert instructions. See IVAG for administration guidelines. , Drug Monitoring Program: Pharmacist to adjust medication dosing based on indication and drug clearance factors., Indications: Prophylaxis, surgical fentaNYL injection 25 mcg (SUBLIMAZE) Given 06/09/2022 2:06 PM CDT 25 mcg 25 mcg, intravenous, Every 2 min PRN, sedation, Administer over 1 minute immediately prior to the procedure. May repeat every 2 minutes to a maximum of 200 mcg, until pain score of 3 or less, or until the patient meets the pain comfort goal, or RASS 0 to -2. Do not give if respiratory rate is less than 8 breaths/minute., Starting on Sandra 06/09/22 at 1246, Intraprocedure (RAD) Given 06/09/2022 2:01 PM CDT 25 mcg Given 06/09/2022 1:48 PM CDT 25 mcg flumazeniL injection 0.2 mg (ROMAZICON) 0.2 mg, intravenous, Once as needed, rev ersal, Starting on Sandra 06/09/22 at 1246, For 1 dose, Intraprocedure (RAD), Administer once if patient has a RASS score of -4, -5 and has a respiratory rate less than 8 breaths/minute. heparin flush 500 Units Given 06/09/2022 4:12 PM CDT 500 Units 500 Units, intra-catheter, During hospitalization, line care, Prior to discharge, Starting on Sandra 06/09/22 at 1552, For 1 dose, Implanted Vascular Access Device (IVAD) Venous Non-Valved: Following saline flush prior to discharge. HYDROmorphone tablet 2 mg (DILAUDID) 2 mg, oral, Every 4 hours PRN, moderate pain or score 4-6 of 10, Starting on Sandra 06/09/22 at 1431 HYDROmorphone tablet 4 mg (DILAUDID) Given 06/09/2022 2:42 PM CDT 4 mg 4 mg, oral, Every 4 hours PRN, severe pain or score 7-10 of 10, Starting on Sandra 06/09/22 at 1431 iohexoL 300 mg iodine/mL solution (OMNIP AQUE) Given 06/09/2022 2:13 PM CDT 125 mL Code/trauma/sedation medication, Starting on Sandra 06/09/22 at 1413 lactated ringers 20 mL/hr, intravenous, Once as needed, t o keep vein open, Starting on Sandra 06/09/22 at 1246, For 1 dose, Intraprocedure (RAD) lidocaine 4 % cream 1 application Given 06/09/2022 11:14 AM CDT 1 application (LMX) 1 application, topical, Once as needed, peripheral intravenous access, Starting on Sandra 06/09/22 at 1108, For 1 dose, Max dose: 2.5 gram; Max application area: 2.5 x 2.5 cm; Max application time: 5 hours. Do not cleanse the skin prior to Topical Lidocaine (LMX-4??) application (although you should not apply over moisturizers or other topical medications) as Topical Lidocaine (LMX-4??) works best when it mixes with the skin surface oils. Wearing gloves, begin by rubbing a small amount of Topical Lidocaine (LMX-4??) cream into each of the sites for approximately 30 seconds. Apply another layer of Topical Lidocaine (LMX-4??) cream, this time with a thicker coating (approximately the size of a quarter). Cover Topical Lidocaine (LMX-4??) with occlusive dressing, sealing edges ONLY to prevent patient from accidental ingestion or eye contact. Apply 30 minutes prior to indicated procedure. lidocaine-sodium bicarbonate (buffered) Given 06/09/2022 2:12 PM CDT 18 mL 0.9%-8.4% injection infiltration, Code/trauma/sedation medication, Starting on Sandra 06/09/22 at 1412 metroNIDAZOLE in NaCl (iso-osm) New Bag 06/09/2022 11:59 AM CD T 500 mg 200 mL/hr IVPB 500 mg (FLAGYL) 500 mg, intravenous, at 200 mL/hr, Administer over 30 Minutes, Once, On Sandra 06/09/22 at 1130, For 1 dose, Preprocedure (RAD), Administer within 1 hour prior to surgical incision, Indications: Prophylaxis, surgical midazolam (PF) injection (VERSED) Given 06/09/2022 2:12 PM CDT 0.5 mg Code/trauma/sedation medication, Starting on Sandra 06/09/22 at 1412 midazolam (PF) injection 0.25 mg (VERSED ) 0.25 mg, intravenous, Every 2 min PRN, s edation, RASS -2, Starting on Sandra 06/09/22 at 1246, Intraprocedure (RAD), May repea t every 2 minutes to a maximum of 5 mg. Do not give if respiratory rate is less than 8 breaths/mi nute. midazolam (PF) injection 0.5 mg (VERSED) Given 06/09/2022 2:08 PM CDT 0.5 mg 0.5 mg, intravenous, Every 2 min PRN, sedation, RASS -1, Starting on Sandra 06/09/22 at 1246, Intraprocedure (RAD), May repeat every 2 minutes for a maximum of 5 mg. Do not give if respiratory rate is less than 8 breaths/minute. Given 06/09/2022 2:04 PM CDT 0.5 mg Given 06/09/2022 1:58 PM CDT 0.5 mg midazolam (PF) injection 1 mg (VERSED) Given 06/09/2022 1:18 PM CDT 1 mg 1 mg, intravenous, Every 2 min PRN, sedation, RASS 0, Starting on Sandra 06/09/22 at 1246, Intraprocedure (RAD), May repeat every 2 minutes for a maximum of 5 mg. Do not give if respiratory rate is less than 8 breaths/minute. naloxone injection 0.2 mg (NARCAN) 0.2 mg, intravenous, Once as needed, respiratory depre ssion, Starting on Sandra 06/09/22 at 1246, For 1 dose, Intraproced ure (RAD), Administer once if patient has a RASS score of -4, -5 and has a respiratory rate less t [place] 8 breaths/minute. sodium chloride 0.9 % injection 10 mL 10 mL, intravenous, As needed, line care, Starting on Sandra 06/09/22 at 1127, Preprocedure (RAD), Peripheral Intraveno us Catheter and Rapid Infusion Catheter, prior to blood sampling, post blood transfusion or pos t blood sampling sodium chloride 0.9 % injection 10 mL 10 mL, intravenous, During hospitalizati on, line care, Prior to discharge, Starting on Sandra 06/09/22 at 1552, For 1 dose, Impl anted Vascular Access Device (IVAD) Venous Non-Valved: Followed by heparin flush prior to dischar ge. sodium chloride 0.9 % injection 3 mL 3 mL, intravenous, As needed, line care, Starting on T hu 06/09/22 at 1127, Preprocedure (RAD), Prior to and following infusion an d between multiple consecutive infusions: sodium chloride 0.9 % injection sodium chloride 0.9 % injection 3 mL 3 mL, intravenous, Every 12 hours scheduled, First dos e on Sandra 06/09/22 at 2100, Preprocedure (RAD), Peripheral Intraveno us Catheter and Rapid Infusion Catheter, when no infusion to maintain patency documented in this encounter Active and Recently Administered Medications Times are shown in CDT. Scheduled Medication Order 06/07/2022 06/08/2022 06/09/2022 cefTRIAXone injection 2 g (ROCEPHIN) (COMPLETED) 1158 (Given - Provider: Zayra Brink R.N.) 2 g, intravenous, Once, On Sandra 06/09/22 a t 1130, For 1 dose, Preprocedure (RAD), Administer within 1 hour prior to surgical incision If needed, reconstitute vial per package insert instructions. See IVAG for administration guidelines. , Drug M onitoring Program: Pharmacist to adjust medication dosing based on indication and drug clearance factors., Indications: Prophylaxis, surgical metroNIDAZOLE in NaCl (iso-osm) IVPB 500 mg (FLAGYL) (COMPLETED) 1159 (New Bag - Provider: Zayra Brink RMariajose) 500 mg, intravenous, at 200 mL/hr, Admin ister over 30 Minutes, Once, On Sandra 06/09/22 at 1130, For 1 dose, Preprocedure (RAD), Administer within 1 hour prior to surgical incision, Indications: Prophylaxis, surgical sodium chloride 0.9 % injection 3 mL 2100 (Due) 3 mL, intravenous, Every 12 hours schedu led, First dose on Sandra 06/09/22 at 2100, Preprocedure (RAD), Peripheral Intravenous Catheter and Rapid Infusion Catheter, when no infusion to maintain patency PRN Medication Order 06/07/2022 06/08/2022 06/09/2022 acetaminophen tablet 1,000 mg (TYLENOL) 1,000 mg, oral, Every 6 hours PRN, mild pain or score 1-3 of 10, moderate pain or score 4-6 of 10, Starting on Sandra 06/09/22 at 1426, (not to exceed 4 grams in 24 hours) fentaNYL injection 25 mcg (SUBLIMAZE) 1322 (Given - Provider: Georgina Mendoza RRiazN.)1326 (Given - Provider: Georgina Mendoza R.N.)1332 (Given - Provider: Georgina Mendoza R.N.)1334 (Given - Provider: Georgina Mendoza R.N.)1341 (Given - Provider: Georgina Mendoza R.N.) 25 mcg, intravenous, Every 2 min PRN, se dation, Administer over 1 minute immediately prior to the procedure. May repeat every 2 minutes to a maximum of 200 mcg, until pain score of 3 or less, or until t 1348 (Given - Provider: Georgina Mendoza RRiazN.)1401 (Given - Provider: Georgina Mendoza R.N.)1406 (Given - Provider: Georgina Mendoza R.N.) he patient meets the pain comfort goal, or RASS 0 to -2. Do not give if respiratory rate is less than 8 breaths/minute., Starting on Sandra 06/09/22 at 1246, Intraprocedure (RAD) flumazeniL injection 0.2 mg (ROMAZICON) 0.2 mg, intravenous, Once as needed, rev ersal, Starting on Sandra 06/09/22 at 1246, For 1 dose, Intraprocedure (RAD), Administer once if patient has a RASS score of -4, -5 and has a respiratory rate less than 8 breaths/minute. heparin flush 500 Units (COMPLETED) 1612 (Given - Provider: Josue Macdonald R.N.) 500 Units, intra-catheter, During hospit alization, line care, Prior to discharge, Starting on Sandra 06/09/22 at 1552, For 1 dose, Implanted Vascular Access Device (IVAD) Venous Non-Valved: Following saline flush prior to discharge. HYDROmorphone tablet 2 mg (DILAUDID)(Linked Group 1) 1442 (See Alternative - Provider: Mario Renae R.N.) 2 mg, oral, Every 4 hours PRN, moderate pain or score 4-6 of 10, Starting on Sandra 06/09/22 at 1431 HYDROmorphone tablet 4 mg (DILAUDID)(Linked Group 1) 1442 (Given - Provider: Mario Renae R.N. - Comment: give 4mg per PARACHUTE PACKER at the bedside) 4 mg, oral, Every 4 hours PRN, severe pa in or score 7-10 of 10, Starting on Sandra 06/09/22 at 1431 iohexoL 300 mg iodine/mL solution (OMNIPAQUE) (COMPLETED) 1413 (Given - Provider: Raymond Harrison M.D.) Code/trauma/sedation medication, Starting on Sandra 06/09/22 at 1413 lactated ringers 20 mL/hr, intravenous, Once as needed, t o keep vein open, Starting on Sandra 06/09/22 at 1246, For 1 dose, Intraprocedure (RAD) lidocaine 4 % cream 1 application (LMX) (COMPLETED) 1114 (Given - Provider: Zyara Brink R.N.) 1 application, topical, Once as needed, peripheral intravenous access, Starting on Sandra 06/09/22 at 1108, For 1 dose, Max dose: 2.5 gram; Max application area: 2.5 x 2.5 cm; Max application time: 5 hours. Do not cleanse the skin prior to Topica l Lidocaine (LMX-4??) application (although you should not apply over moisturizers or other topical medications) as Topical Lidocaine (LMX-4??) works best when it mixes with the skin surface oils. Weari ng gloves, begin by rubbing a small amount of Topical Lidocaine (LMX-4??) cream into each of the sites for approximately 30 seconds. Apply another layer of Topica l Lidocaine (LMX-4??) cream, this time w ith a thicker coating (approximately the size of a quarter). Cover Topical Lidocaine (LMX-4??) with occlusive dressing, sealing edges ONLY to prevent patient from accidental ingestion or eye contact. Ap ply 30 minutes prior to indicated procedure. lidocaine-sodium bicarbonate (buffered) 0.9%-8.4% injection (COM PLETED) 1412 (Given - Provider: Raymond Harrison M.D.) infiltration, Code/trauma/sedation medication, Starting on [facility] 06/09/22 at 1412 midazolam (PF) injection (VERSED) (COMPLETED) 1412 (Given - Provider: Georgina Mendoza R.N.) Code/trauma/sedation medication, Starting on Sandra 06/09/22 at 1412 midazolam (PF) injection 0.25 mg (VERSED) 0.25 mg, intravenous, Every 2 min PRN, s edation, RASS -2, Starting on Sandra 06/09/22 at 1246, Intraprocedure (RAD), May repeat every 2 minutes to a maximum of 5 mg. Do not give if respiratory rate is less than 8 breaths/minute. midazolam (PF) injection 0.5 mg (VERSED) 1326 (Given - Provider: Georgina Mendoza, R.N.)1331 (Given - Provider: Georgina Mendoza, R.N.)1334 (Given - Provider: Georgina Mendoza, R.N.)1338 (Given - Provider: Georgina Mendoza, R.N.)1345 (Given - Provider: Georgina Mendoza, R.N.) 0.5 mg, intravenous, Every 2 min PRN, se dation, RASS -1, Starting on Sandra 06/09/22 at 1246, Intraprocedure (RAD), May repeat every 2 minutes for a maximum of 5 mg. Do not give if respiratory rate is less than 8 breaths/minute. 1358 (Given - Provider: Georgina Mendoza, R.N.)1404 (Given - Provider: Georgina Mendoza, R.N.)1408 (Given - Provider: Georgina Mendoza, R.N.) midazolam (PF) injection 1 mg (VERSED) 1318 (Given - Provider: Georgina Mendoza, R.N.) 1 mg, intravenous, Every 2 min PRN, fabien tion, RASS 0, Starting on Sandra 06/09/22 at 1246, Intraprocedure (RAD), May repeat every 2 minutes for a maximum of 5 mg. Do not give if respiratory rate is less than 8 breaths/minute. naloxone injection 0.2 mg (NARCAN) 0.2 mg, intravenous, Once as needed, res piratory depression, Starting on Sandra 06/09/22 at 1246, For 1 dose, Intraprocedure (RAD), Administer once if patient has a RASS score of -4, -5 and has a respiratory rate less than 8 breaths/minute. ondansetron (PF) injection 4 mg (ZOFRAN) 4 mg, intravenous, Every 6 hours PRN, na usea, vomiting, Starting on Sandra 06/09/22 at 1426, For 48 hours, Reassess for nausea or vomiting after at least 10 minutes. If nausea or vomiting persists administe r next ordered antiemetic medications (o rder for antiemetic medication administration ondansetron then promethazine). sodium chloride 0.9 % injection 10 mL 10 mL, intravenous, As needed, line care , Starting on Sandra 06/09/22 at 1127, Preprocedure (RAD), Peripheral Intravenous Catheter and Rapid Infusion Catheter, prior to blood sampling, post blood transfusion or post blood sampling sodium chloride 0.9 % injection 10 mL 10 mL, intravenous, During hospitalizati on, line care, Prior to discharge, Starting on Sandra 06/09/22 at 1552, For 1 dose, Implanted Vascular Access Device (IVAD) Venous Non-Valved: Followed by heparin flush prior to discharge. sodium chloride 0.9 % injection 3 mL 3 mL, intravenous, As needed, line care, Starting on Sandra 06/09/22 at 1127, Preprocedure (RAD), Prior to and following infusion and between multiple consecutive infusions: sodium chloride 0.9 % injection Linked Groups Order Group 1: HYDROmorphone tablet 2 mg (DILAUDID)Jump to med 2 mg, oral, Every 4 hours PRN, moderate pain or score 4-6 of 10, Starting on Sandra 06/09/22 at 1431 Or HYDROmorphone tablet 4 mg (DILAUDID)Jump to med 4 mg, oral, Every 4 hours PRN, severe pa in or score 7-10 of 10, Starting on Sandra 06/09/22 at 1431 documented in this encounter Additional Health Concerns Assessment Noted Time PHQ-9 Depression Total Score: 2 10/01/2021 10:34 AM CS T documented as of this encounter Care Teams Chicken Sexer Relationship Specialty Start Date End Date Elsewhere, Pcp PCP - General Family Medicine 08/12/20 documented as of this encounter
--- OUTSIDE RECORDS SUMMARY | 2022-06-18 15:59 | XMS_ITS | Encounter Summary ---
:1965 Author Organization [facility] Address [address] [place] [id number] Care Team Providers Name Role Phone Elsewhere, Pcp Primary Care Provider Unavailable Reason for Visit Reason Comments Med Refill Encounter Details Date Type Department Care Team Description 06/15/2022 Refill Department of Oncology in [facility], Maria Del Rosario Sanchez APRN, Med Refill [place], [place] C.N.P., M.S. [address] [facility] [address] [place] [address] [place] [address] [phone] (Wo rk) Social History Tobacco Use Types [...] er 01/15/2021 How often do you attend evangelical or church services? Never 01/15/2021 Do you belong to any clubs or organizations such as evangelical N o 01/15/2021 groups, unions, fraternal or [...] place to sleep or slept in a half-way (including now)? Education Answer Date Recorded What is the highest level of school you have completed or 12 th grade 01/15/2021 the highest degree you have received? 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 Patient Reason for call: Patient calls asking about the refill for his Diluadid. It looks like it was sent to [facility] pharmacy, patient is in [place]. Can we place redirect rx to [facility] in [place]? Patient also states that he is to have the 4 mg tablets refilled. He takes one 4 mg tablet every morning then takes a 2 mg tablet later on if he has increased back pain. Please change dose and redirect. Call patient if any questions/concerns. Thank you, Angelita LUNAT ONC [facility] AA POD 1 documented in this encounter Plan of Treatment Upcoming Encounters Date Type Specialty Care Team Description 06/22/2022 Lab Laboratory Medicine Maria Del Rosario Gomez AP RN, C.N.P., M.S. [address] [place] [phone] ([place] godoy) 06/22/2022 Infusion Oncology Maria Del Rosario Gomez APRN, C.N .P., M.S. [address] [place] [phone] ([place]j godoy) 06/29/2022 Lab Laboratory Medicine Maria Del Rosario Gomez AP RN, C.N.P., M.S. [address] [place] [phone] (Mj godoy) 06/29/2022 Infusion Oncology Maria Del Rosario Gomez APRN, C.N .P., M.S. [address] [place] [phone] ([place]j godoy) documented as of this encounter Visit Diagnoses Not on filedocumented in this encounter Additional Health Concerns Assessment Noted Time PHQ-9 Depression Total Score: 2 10/01/2021 10:34 AM CS T documented as of this encounter Care Teams Audio/Visual Operator Relationship Specialty Start Date End Date Elsewhere, Pcp PCP - General Family Medicine 08/12/20 documented as of this encounter
--- OUTSIDE RECORDS SUMMARY | 2022-06-18 15:59 | XMS_ITS | Encounter Summary ---
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 [address] [facility] [address] [place] [address] [place] [address] Referral ID Status Reason Start Date Expiration Date Visits V isits Requested Authorized [id number] Authorized 06/06/2022 06/06/2023 12 12 Encounter Details Date Type Department Care Team Description 06/15/2022 Lab Department of Infusion Maria Del Rosario Gomez, Malignant Neoplasm Of Pancreas (HCC) (Primary Dx); Therapy in [place], GUERO, C.N. P., M.S. Secondary Malignant Neoplasm Liver (HCC) ; [place] [address] [facility] Portal Vein Thrombosis; [address] [place], [place] Bacteremia [place], [place] [phone] (Wo rk) Social History Tobacco Use Types [...] er 01/15/2021 How often do you attend cheondoism or pentecostal services? Never 01/15/2021 Do you belong to any clubs or organizations such as cheondoism N o 01/15/2021 groups, unions, fraternal or [...] place to sleep or slept in a penitentiary (including now)? Education Answer Date Recorded What is the highest level of school you have completed or 12 th grade 01/15/2021 the highest degree you have received? 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 [address] [place] [phone] (Wo rk) 06/22/2022 Infusion Oncology Maria Del Rosario Gomez APRN, C.N .P., M.S. [address] [place] [phone] (Wo rk) 06/29/2022 Lab Laboratory Medicine Maria Del Rosario Gomez AP RN, C.N.P., M.S. [address] [place] [phone] (Wo rk) 06/29/2022 Infusion Oncology Maria Del Rosario Gomez APRN, C.N .P., M.S. [address] [place] [phone] (Wo rk) documented as of this encounter Procedures Procedure Name Priority Date/Time Associated Comments Diagnosis CBC WITH DIFFERENTIAL, Routine 06/15/2022 6:24 AM Malignant Ne oplasm Results for this B CDT Of Pancreas (HCC ) procedure are in Secondary Malignant the resu lts Neoplasm Liver section. (HCC) Portal Vein Thrombosis BILIRUBIN DIRECT, S/P Routine 06/15/2022 6:23 AM Secondary Mal ignant Results for this CDT Neoplasm Liver procedure are in (HCC) the results Malignant Neoplasm section. Of Pancreas (HCC) COMPREHENSIVE Routine 06/15/2022 6:23 AM Secondary Malignant R esults for this METABOLIC PANEL, S/P CDT Neoplasm Liver proce dure are in (HCC) the results Malignant Neoplasm section. Of Pancreas (HCC) documented in this encounter Results (ABNORMAL) CBC with Differential, Blood (06/15/2022 6:24 AM CDT) [facility] gist Method Time Signature Hemoglobin 11.5 (L) 13.2 - 06/15/2022 DTL 16.6 g/dL 6:41 AM CDT Hematocrit 36.0 (L) 38.3 - 06/15/2022 DTL 48.6 % 6:41 AM CDT Erythrocytes 4.19 (L) 4.35 - 06/15/2022 DTL 5.65 6:41 AM CDT x10(12)/L MCV 85.9 78.2 - 06/15/2022 DTL 97.9 fL 6:41 AM CDT RBC Distrib Width 17.4 (H) 11.8 - 06/15/2022 DTL 14.5 % 6:41 AM CDT Platelet Count 210 135 - 317 06/15/2022 DTL x10(9)/L 6:41 AM CDT Leukocytes 4.9 3.4 - 9.6 06/15/2022 DTL x10(9)/L 6:41 AM CDT Neutrophils 3.41 1.56 - 06/15/2022 DTL 6.45 6:41 AM CDT x10(9)/L Lymphocytes 0.72 (L) 0.95 - 06/15/2022 DTL 3.07 6:41 AM CDT x10(9)/L Monocytes 0.54 0.26 - 06/15/2022 DTL 0.81 6:41 AM CDT x10(9)/L Eosinophils 0.20 0.03 - 06/15/2022 DTL 0.48 6:41 AM CDT x10(9)/L Basophils 0.05 0.01 - 06/15/2022 DTL 0.08 6:41 AM CDT x10(9)/L Specimen Anatomical Collection Method Collection Time Receive d Time (Source) Location / / Volume Laterality Blood (Blood, 06/15/2022 6:24 AM 06/15/20 6:32 Venous) CDT AM CDT Maria Del Rosario Gomez APRN, C.N.P., M.S. LAB BLOOD ADD-ON Performing Organization Address City/[facility] Phon e Number [facility] - [address] [place] [address] [place] [address] Bilirubin, Direct (06/15/2022 6:23 AM CDT) athologist Signature Bilirubin, <0.2 0.0 - 0.3 06/15/2022 DTL Direct, S mg/dL 7:17 AM CDT Specimen Anatomical Collection Method Collection Time Receive d Time (Source) Location / / Volume Laterality Blood (Blood, 06/15/2022 6:23 AM 06/15/20 6:58 Venous) CDT AM CDT Remy Willson APRN.N.Pamela., M.S. LAB BLOOD ADD-ON Performing Organization Address City/[facility] Phon e Number [address] [place] [address] (ABNORMAL) Comprehensive Metabolic Panel (06/15/2022 6:23 AM CDT) athologist Signature Potassium, S 4.3 3.6 - 5.2 06/15/2022 DTL mmol/L 7:17 AM CDT Sodium, S 141 135 - 145 06/15/2022 DTL mmol/L 7:17 AM CDT Chloride, S 106 98 - 107 06/15/2022 DTL mmol/L 7:17 AM CDT Bicarbonate, S 27 22 - 29 06/15/2022 DTL mmol/L 7:17 AM CDT Anion Gap 8 7 - 15 06/15/2022 DTL 7:17 AM CDT BUN (Blood Urea 13 8 - 24 06/15/2022 DTL Nitrogen), S mg/dL 7:17 AM CDT Creatinine 0.88 0.74 - 06/15/2022 DTL 1.35 mg/dL 7:17 AM CDT Estimated GFR >90 >=60 06/15/2022 DTL (eGFR) mL/min/BSA 7:17 AM CDT Comment: Estimated GFR calculated using the 2020 CKD_EPI creatinine equation. Calcium, Total, S 9.0 8.6 - 10.0 mg/dL 06/15/2022 7:17 AM CDT DTL Glucose, S 130 70 - 140 mg/dL 06/15/2022 7:17 AM CDT D TL Protein, Total, S 6.6 6.3 - 7.9 g/dL 06/15/2022 7:17 A M CDT DTL Albumin, S 3.8 3.5 - 5.0 g/dL 06/15/2022 7:17 AM CDT D TL Aspartate Aminotransferase 32 8 - 48 U/L 06/15/2022 7 :17 AM CDT DTL (AST), S Alkaline Phosphatase, S 353 (H) 40 - 129 U/L 06/15/2022 7: 17 AM CDT DTL Alanine Aminotransferase 54 7 - 55 U/L 06/15/2022 7:1 7 AM CDT DTL (ALT), S Bilirubin, Total, S 0.3 <=1.2 mg/dL 06/15/2022 7:17 AM CDT DTL Specimen Anatomical Collection Method Collection Time Receive d Time (Source) Location / / Volume Laterality Blood (Blood, 06/15/2022 6:23 AM 06/15/20 6:58 Venous) CDT AM CDT Maria Del Rosario Gomez APRN C.N.P., M.S. LAB BLOOD ADD-ON Performing Organization Address City/State/ZIP Code Phon e Number [facility] - [address] [place], [place] [address] [facility] [place] [address] Laboratories-[facility] [address] documented in this encounter Visit Diagnoses Diagnosis Malignant Neoplasm Of Pancreas (HCC) - P rimary Secondary Malignant Neoplasm Liver (HCC) Portal Vein Thrombosis Bacteremia documented in this encounter Administered Medications Inactive Administered Medications - up to 3 most recent administrations Medication Order MAR Action Action Date Dose Rate Site heparin flush 500 Units Given 06/15/2022 6:26 AM CDT 500 Units 500 Units, intra-catheter, As needed, line care, Starting on Mon06/15/22 at 0617, When no infusion to maintain patency: For IVAD accessed, not in use, and/or prior to hospital discharge, flush every 7 days after 0.9% preservative-free NaCL flush. For IVAD NOT accessed or used, flush every 4 weeks after 0.9% preservative-free NaCL flush. sodium chloride 0.9 % injection 10 mL Given 06/15/2022 6:26 AM CDT 10 mL 10 mL, intra-catheter, As needed, line care, Starting on Mon06/15/22 at 0617, When IVAD Accessed and in Use: Flush prior to and following infusion, between multiple consecutive infusions, and prior to blood sampling. sodium chloride 0.9 % injection 20 mL Given 06/15/2022 6:26 AM CDT 20 mL 20 mL, intra-catheter, As needed, line care, Starting on Mon06/15/22 at 0617, When IVAD Accessed and in Use: Flush post blood transfusion or post blood sampling. documented in this encounter Additional Health Concerns Assessment Noted Time PHQ-9 Depression Total Score: 2 10/01/2021 10:34 AM CS T documented as of this encounter Care Teams Timber Poisoner Relationship Specialty Start Date End Date Elsewhere, Pcp PCP - General Family Medicine 08/12/20 documented as of this encounter
--- OUTSIDE RECORDS SUMMARY | 2022-06-18 15:59 | XMS_ITS | Encounter Summary ---
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 [address] [facility] [address] [place] [address] [place] [address] Referral ID Status Reason Start Date Expiration Date Visits V isits Requested Authorized [id number] Authorized 06/06/2022 06/06/2023 12 12 Encounter Details Date Type Department Care Team Description 06/15/2022 Infusion Department of Oncology Maria Del Rosario oGmez, Secondary Malignant Neoplasm Liver (HCC) (Primary Dx); in [facility] GUERO, C.N.P., M.S. Malignant Neoplasm Of Pancreas (HCC); [address] [place] [address] [address] [facility] [place] [phone] Social History Tobacco Use Types Packs/Day Years [...] er 01/15/2021 How often do you attend protestant or christianity services? Never 01/15/2021 Do you belong to any clubs or organizations such as protestant N o 01/15/2021 groups, unions, fraternal or [...] place to sleep or slept in a custodial (including now)? Education Answer Date Recorded What is the highest level of school you have completed or 12 th grade 01/15/2021 the highest degree you have received? 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 documented as of this encounter Last Filed Vital Signs Vital Sign Reading Time Taken Comments Blood Pressure 101/69 06/15/2022 8:02 AM CDT Pulse 72 06/15/2022 8:02 AM CDT Temperature 36.2 ??C (97.2 ??F) 06/15/2022 8:02 AM CDT Respiratory Rate 20 06/15/2022 8:02 AM CDT Oxygen Saturation - - Inhaled Oxygen Concentration - - Weight 73.1 kg (161 lb 0.7 oz) 06/15/2022 8:02 AM CDT Height - - Body Mass Index 23.24 06/06/2022 11:01 AM CDT documented in this encounter Plan of Treatment Upcoming Encounters Date Type Specialty Care Team Description 06/22/2022 Lab Laboratory Medicine Maria Del Rosario Gomez AP RN, C.N.P., M.S. [address] [place] [phone] (Mj godoy) 06/22/2022 Infusion Oncology Maria Del Rosario Gomez APRN, C.N .P., M.S. [address] [place] [phone] (Mj godoy) 06/29/2022 Lab Laboratory Medicine Maria Del Rosario Gomez AP RN, C.N.P., M.S. [address] [place], [place] [phone] (Wo rk) 06/29/2022 Infusion Oncology Maria Del Rosario Gomez APRN, C.N .P., M.S. [address] [place], [place] [phone] (Wo rk) documented as of this encounter Visit Diagnoses Diagnosis Secondary Malignant Neoplasm Liver (HCC) - Primary Malignant Neoplasm Of Pancreas (HCC) Bacteremia documented in this encounter Administered Medications Inactive Administered Medications - up to 3 most recent administrations Medication Order MAR Action Action Date Dose Rate Site gemcitabine 1,800 mg in NaCl New Bag 06/15/2022 8:30 AM CDT 1,800 mg 645 mL/hr 0.9% 322.34 mL IVPB (GEMZAR) 1,800 mg (rounded from 1,870 mg = 1,000 mg/m2 ? 1.87 m2 Treatment Plan BSA from Measured weight), intravenous, at 645 mL/hr, Administer over 30 Minutes, Once, On Mon06/15/22 at 0815, For 1 dose heparin flush 500 Units Given 06/15/2022 9:32 AM CDT 500 Units 500 Units, intra-catheter, As needed, line care, Starting on Mon06/15/22 at 0802, When no infusion to maintain patency: For IVAD accessed, not in use, and/or prior to hospital discharge, flush every 7 days after 0.9% preservative-free NaCL flush. For IVAD NOT accessed or used, flush every 4 weeks after 0.9% preservative-free NaCL flush. ondansetron (PF) injection 8 mg (ZOFRAN) Given 06/15/2022 8:08 AM CDT 8 mg 8 mg, intravenous, Once, On Mon06/15/22 at 0815, For 1 dose sodium chloride 0.9 % injection 10 mL Given 06/15/2022 9:32 AM CDT 10 mL 10 mL, intra-catheter, As needed, line care, Starting on Mon06/15/22 at 0802, When IVAD Accessed and in Use: Flush prior to and following infusion, between multiple consecutive infusions, and prior to blood sampling. sodium chloride 0.9 % injection 20 mL Given 06/15/2022 9:32 AM CDT 20 mL 20 mL, intra-catheter, As needed, line care, Starting on Mon06/15/22 at 0802, When IVAD Accessed and in Use: Flush post blood transfusion or post blood sampling. documented in this encounter Additional Health Concerns Assessment Noted Time PHQ-9 Depression Total Score: 2 10/01/2021 10:34 AM CS T documented as of this encounter Care Teams Cash Crop Farmer Relationship Specialty Start Date End Date Elsewhere, Pcp PCP - General Family Medicine 08/12/20 documented as of this encounter
--- OUTSIDE RECORDS SUMMARY | 2022-06-18 15:59 | XMS_ITS | Encounter Summary ---
:1965 Author Organization [facility] Address [address] [place] [address] Care Team Providers Name Role Phone Elsewhere, Pcp Primary Care Provider Unavailable Reason for Referral Outpatient (Routine) - Closed Specialty Diagnoses / Procedures Referred By Contact Refer red To Contact Radiology Diagnoses Malignant Neoplasm Of Pancreas (HCC) Secondary Malignant Neoplasm Liver (HCC) Portal Vein Thrombosis Maria Del Rosario Gomez APRNCatholic Health Procedures IR Transhepatic Portal Venogram IR Portal Venogram Percutaneous With Pressures C.N.P., M.S. [address] [place] [address] Referral ID Status Reason Start Date Expiration Date Visits Requ ested Visits Authorized [id number] Closed 06/06/2022 06/06/2023 1 1 Encounter Details Date Type Department Care Team Description 06/06/2022 Office Visit Department of Oncology Maria Del Rosario Gomez Ma lignant Neoplasm Of Pancreas (HCC) (Primary Dx); in [facility] GUERO Sanchez, C.N.P., Secondary Malignant Neoplasm Liver (HCC); [facility] Portal Vein Thrombosis [address] [facility] [address] [place] [id number] [phone] Social History Tobacco Use Types Packs/Day Years [...] er 01/15/2021 How often do you attend buddhism or gnosticism services? Never 01/15/2021 Do you belong to any clubs or organizations such as buddhism N o 01/15/2021 groups, unions, fraternal or [...] place to sleep or slept in a residential (including now)? Education Answer Date Recorded What is the highest level of school you have completed or 12 th grade 01/15/2021 the highest degree you have received? 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 - 06/06/2022 10:50 AM CDT SUBJECTIVE PRIMARY CARE PHYSICIAN ELSEWHERE, PCP LOCAL ONCOLOGIST No care sales floor team leader to display PRIMARY [place] ONCOLOGIST Deborah Murray M.B.B.S. Maria Del Rosario Gomez APRN, C.N.P., M.S. CHIEF COMPLAINT / REASON FOR VISIT Adam Campbell is a 57 y.o. male who presents to discuss next steps in regard to treatment for person history metastatic pancreatic adenocarcinoma who recently experienced disease progression while on a clinical trial. Cancer Staging Malignant Neoplasm Of Pancreas (HCC) Staging form: Exocrine Pancreas, AJCC 8th Edition - Clinical stage from 01/25/2021: Stage IB (cT2, cN0, cM0) HISTORY OF PRESENT ILLNESS Oncology History Oncology History Malignant Neoplasm Of Pancreas (HCC) [...] (01/25/2021 - 03/02/2021) Site: Pancreas Technique: 3D SENIOR RESEARCH PROJECT MANAGER Goal: Curative Planned Treatment Start Date: 01/25/2021 [...] in Patients with Metastatic Pancreatic Ductal Adenocarcinoma ([id number]) Treatment Protocol: [facility] CRDF-001 ( Onvansertib (Days 1-10) / Fluorouracil / Leucovorin / Nanoliposomal Irinotecan ) June 01, 2022: CT: Disease progression surrounding local Vasculature. Per Dr. Mantilla this is considered progression on present treatment regimen. 06/13/2022 - Chemotherapy Gemcitabine Every 28 Days ( GI ) Start Date: 06/13/2022 (Planned) Interval History Mr. Campbell continues to experience pain on the left back area close to require his kidney would be. He was recently hospitalized for pain management. During that time he underwent an ERCP. He states that he did have a kidney stone occur before he was hospitalized. He had diarrhea on Monday. He thought was related to food poisoning to food that he consumed on Monday. He has not had any diarrhea so far today. He does continue to suffer from nausea. He uses Zofran with good response. He denies chest pain, shortness of breath, elevated temperature or night sweats. The following portions of the patient's history were reviewed and updated as appropriate: allergies,current medications, family history, medical history, social history, surgical history, and problem list. CURRENT MEDICATIONS Current Outpatient Medications on File Prior to [...] file prior to visit. REVIEW OF SYSTEMS Gastrointestinal: Positive for abdominal (belly) pain or cramping, diarrhea and nausea. Musculoskeletal: Positive for back pain. All other systems reviewed and are negative. OBJECTIVE BP 91/59 (BP Location: Left arm, Patient Position: Sitting, Cuff Size: Regular) Temp 36.5 ??C (Tympanic) Resp 16 Ht 177.3 cm Wt 71 kg SpO2 99% BMI 22.59 kg/m?? PHYSICAL EXAMINATION General: Well appearing 57 y.o. who is in no apparent distress. Appears to be at ECOG performance status 1 Skin: Non-jaundice. No rashes. Eyes: No scleral icterus Lungs: Nonlabored, absent of a cough. Extremities: No edema Neuro: Alert and oriented x 3. Calm interactive and appropriate. No focal neuro deficits. LABORATORY DATA Lab data reviewed. ASSESSMENT / PLAN #1 Malignant Neoplasm Of Pancreas (HCC) #2 Secondary Malignant Neoplasm Liver (HCC) #3 Portal Vein Thrombosis Prior to meeting with Mr. Campbell and his family I had the opportunity to review his past medical records, laboratory tests and imaging studies. I have also reviewed the case in its entirety with Dr. Murray,my collaborating provider who is in full agreement with the following plan. In fully reviewing some of the previous treatment regimens he was on he has not had disease progression while on gemcitabine/Abraxane or FOLFOX. At this time we do not have another clinical trial that he would qualify for. We had an extensive discussion regarding his situation and at the conclusion ofour discussion he has decided to proceed with gemcitabine chemotherapy. He received gemcitabine along with radiation therapy in the past and tolerated that well. In regards the abdominal pain I had contacted Dr. Connor freitas to look at his imaging studies to see if the vascular growth could potentially be the cause of his discomfort. Dr. 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 He does have collaterals so the kidney itself is not in danger. I then pose the question about the portal vein and if there would be a benefit to prophylactically stenting this location as in the future it could causepotential side effects such as ascites and abdominal pain. He recommended that I visit with either Dr. Harrison or Dr. Tate regarding this issue. At the end of our visit Dr. Harrison had contacted me and reviewed his imaging studies. He does believe it would be a good idea and that the timing is right to proceed with stenting of the portal vein to avoid any future side effects from occlusion of the portal vein. Dr. Harrison believes he could get that accomplished yet this week before we start chemotherapy. We will plan to start chemotherapy nextweek. Mr. Campbell is in full agreement with the plan. Denies any further questions or concerns. Has our telephone number to contact us should they have any further questions or concerns. PATIENT EDUCATION Ready to learn, no apparent learning barriers were identified; learning preferences include listening. Explained diagnosis and treatment plan; patient expressed understanding of the content. ADMINISTRATIVE BILLING I personally spent 45 minutes in care of the patient today. Time includes both non face to face and face to face patient care. documented in this encounter Plan of Treatment Upcoming Encounters Date Type Specialty Care Team Description 06/22/2022 Lab Laboratory Medicine Maria Del Rosario Gomez AP RN, C.N.P., M.S. [address] [place] [phone] (Mj godoy) 06/22/2022 Infusion Oncology Maria Del Rosario Gomez APRN, C.N .P., M.S. [address] [place] [phone] (Mj godyo) 06/29/2022 Lab Laboratory Medicine Maria Del Rosario Gomez AP RN, C.N.P., M.S. [address] [place] [phone] (Mj godoy) 06/29/2022 Infusion Oncology Maria Del Rosario Gomez APRN, C.N .P., M.S. [address] [place] [phone] (Mj godoy) Scheduled Orders Name Type Priority Associated Diagnoses Order S chedule CBC, Chemotherapy, No Lab Routine Secondary Malignant Expected: 06/22/2022, Alerts Neoplasm Liver ( HCC) Expires: 06/22/2023 Malignant Neoplasm Of Pancreas (HCC) Comprehensive Metabolic Lab Routine Secondary Maligna nt Expected: 06/22/2022, Panel Neoplasm Liver ( HCC) Expires: 06/22/2023 Malignant Neoplasm Of Pancreas (HCC) CBC, Chemotherapy, No Lab Routine Secondary Malignant Expected: 06/29/2022, Alerts Neoplasm Liver ( HCC) Expires: 06/29/2023 Malignant Neoplasm Of Pancreas (HCC) Comprehensive Metabolic Lab Routine Secondary Maligna nt Expected: 06/29/2022, Panel Neoplasm Liver ( HCC) Expires: 06/29/2023 Malignant Neoplasm Of Pancreas (HCC) documented as of this encounter Results (ABNORMAL) CBC with Differential, Blood (06/15/2022 6:24 AM CDT) [facility] gist Method Time Signature Hemoglobin 11.5 [...] M.S. LAB BLOOD ADD-ON Performing Organization Address [facility] Phon e Number [facility] - [address] [place], [place] [address] [place] [address] Bilirubin, Direct (06/15/2022 6:23 AM CDT) athologist Signature Bilirubin, <0.2 0.0 - 0.3 06/15/2022 DTL Direct, S mg/dL 7:17 AM CDT Specimen Anatomical Collection Method Collection Time Receive d Time (Source) Location / / Volume Laterality Blood (Blood, 06/15/2022 6:23 AM 06/15/20 6:58 Venous) CDT AM CDT Maria Del Rosario Gomez APRN, C.N.P., M.S. LAB BLOOD ADD-ON Performing Organization Address City/[facility] Phon e Number [facility] - [address] [place] [address] (ABNORMAL) Comprehensive Metabolic Panel (06/15/2022 6:23 AM [...] Organization Address City/State/ZIP Code Phon e Number [facility] - [address] [place], [place] [address] [facility] [place] [address] [facility] [address] IR Transhepatic Portal Venogram (06/09/2022 2:20 PM [...] AccuStick introducer was exchanged for a 6 Slovak sheath and a 12 mm in diameter [...] AccuStick introducer was exchanged for a 6 Slovak sheath and a 12 mm in diameter [...] Malignant Neoplasm Liver (HCC) Portal Vein Thrombosis Malignant Neoplasm Of Pancreas (HCC) Secondary Malignant Neoplasm Liver (HCC) Portal Vein Thrombosis documented in this encounter Additional Health Concerns Assessment Noted Time PHQ-9 Depression Total Score: 2 10/01/2021 10:34 AM CS T documented as of this encounter Care Teams Bundle Helper Relationship Specialty Start Date End Date Elsewhere, Pcp PCP - General Family Medicine 08/12/20 documented as of this encounter
--- OUTSIDE RECORDS SUMMARY | 2022-06-18 15:59 | XMS_ITS | Encounter Summary ---
:1965 Author Organization [facility] Address [address] [place] [address] Care Team Providers Name Role Phone Elsewhere, Pcp Primary Care Provider Unavailable Reason for Visit Reason Comments Med Refill gabapentin Encounter Details Date Type Department Care Team Description 06/15/2022 Refill Department of Oncology Vladislav Zarco Med Refill (gabapentin ) in [facility] elke Pereira M.D. [address] [facility] [address] [place] [address] [place], [place] [phone] (Wo rk) Social History Tobacco Use Types [...] er 01/15/2021 How often do you attend spiritism or sabianist services? Never 01/15/2021 Do you belong to any clubs or organizations such as spiritism N o 01/15/2021 groups, unions, fraternal or [...] place to sleep or slept in a m[facility]p (including now)? Education Answer Date Recorded What is the highest level of school you have completed or 12 th grade 01/15/2021 the highest degree you have received? 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 - 06/15/2022 7:08 AM CDT Surescripts created refill request. documented in this encounter Plan of Treatment Upcoming Encounters Date Type Specialty Care Team Description 06/22/2022 Lab Laboratory Medicine Maria Del Rosario Gomez AP RN, C.N.P., M.S. [address] [place] [phone] (Mj godoy) 06/22/2022 Infusion Oncology Maria Del Rosario Gomez APRN, C.N .P., M.S. [address] [place] [phone] (Mj godoy) 06/29/2022 Lab Laboratory Medicine Maria Del Rosario Gomez AP RN, C.N.P., M.S. [address] [place] [phone] (Mj godoy) 06/29/2022 Infusion Oncology Maria Del Rosario Gomez APRN, C.N .P., M.S. [address] [place] [phone] (Mj godoy) documented as of this encounter Visit Diagnoses Not on filedocumented in this encounter Additional Health Concerns Assessment Noted Time PHQ-9 Depression Total Score: 2 10/01/2021 10:34 AM CS T documented as of this encounter Care Teams Residential Sales Consultant Relationship Specialty Start Date End Date Elsewhere, Pcp PCP - General Family Medicine 08/12/20 documented as of this encounter
--- OUTSIDE RECORDS SUMMARY | 2022-06-18 15:59 | XMS_ITS | Encounter Summary ---
:1965 Author Organization [facility] Address [address] [place] [address] Care Team Providers Name Role Phone Elsewhere, Pcp Primary Care Provider Unavailable Encounter Details Date Type Department Care Team Description 06/07/2022 Clinical Communication Department of Radiology Lisseth Bowden in [facility] elke A, R.N. [address] [facility] [address] [place] [phone] Social History Tobacco Use Types Packs/Day Years [...] er 01/15/2021 How often do you attend latter day or episcopal services? Never 01/15/2021 Do you belong to any clubs or organizations such as latter day N o 01/15/2021 groups, unions, fraternal or [...] place to sleep or slept in a assisted (including now)? Education Answer Date Recorded What is the highest level of school you have completed or 12 th grade 01/15/2021 the highest degree you have received? 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 - 06/07/2022 11:39 AM CDT Request received from Maria Del Rosario Gomez to schedule Mr. Campbell for Portal Venogram +/- REEL WINDER/stenting. Procedure scheduled at [facility] on 06/09/[address] Harrison. Report time 10:30 a.m. at [facility], Main floor Hoang Abernathy MD . The patient is scheduled for a [facility] In-person visit on 06/08/2022. Patient is not on blood thinners. Patient is not diabetic. Port-a-cath in place. Labs: 06/01/2022, which may be reviewed in the patient's EMR. EC06/01/2022, which may be reviewed in the patient's EMR. This procedure is scheduled as an outpatient procedure. Requesting service to notify the patient of these appointments. documented in this encounter Plan of Treatment Upcoming Encounters Date Type Specialty Care Team Description 06/22/2022 Lab Laboratory Medicine Maria Del Rosario Gomez AP RN, C.N.P., M.S. [address] [place] [phone] (Mj rk) 06/22/2022 Infusion Oncology Maria Del Rosario Gomez APRN, C.N .P., M.S. [address] [place] [phone] (Wo rk) 06/29/2022 Lab Laboratory Medicine Maria Del Rosario Gomez AP RN, C.N.P., M.S. [address] [place] [phone] (Wo rk) 06/29/2022 Infusion Oncology Maria Del Rosario Gomez APRN, C.N .P., M.S. [address] [place] [phone] (Wo rk) documented as of this encounter Visit Diagnoses Not on filedocumented in this encounter Additional Health Concerns Assessment Noted Time PHQ-9 Depression Total Score: 2 10/01/2021 10:34 AM CS T documented as of this encounter Care Teams Conveyor Installer Relationship Specialty Start Date End Date Elsewhere, Pcp PCP - General Family Medicine 08/12/20 documented as of this encounter
--- OUTSIDE RECORDS SUMMARY | 2022-06-18 15:59 | XMS_ITS | Clinical Summary ---
:1965 Author Organization [facility] Address [address] [place] [address] Care Team Providers Name Role Phone Elsewhere, Pcp Primary Care Provider Unavailable Source Comments Patient records contain information from all sites at [facility]. For routine questions regarding patient records, call [phone] during business hours, M-F 8:00 AM - 5:00 PM Central Time. Record requests for emergency care only can be directed to [phone] at any time.[facility] Allergies Active Allergy Reactions Severity Noted Date Comments Prochlorperazine GI intolerance Medium 10/26/2020 Ranitidine Hcl Diarrhea Medium 11/23/2010 Medications Medication Sig Dispensed Refills Start End Status Date Date polyethylene glycol Take 1 packet (17 0 10/22/19 Active (MIRALAX) 17 gram g total) by mouth 21 powder packet 2 (two) times a day. Dissolve each 17 g dose in 240 mLs (8 ounces) of beverage. sennosides-docusate Take 3 tablets by 0 10/22/19 Active sodium (SENOKOT-S) mouth 2 (two) 21 8.6-50 mg per times a day. tablet medical cannabis Take by mouth. THC component: 0 Active capsule CBD component: lidocaine-prilocain Apply 1 30 g 3 12/23/19 Active e (EMLA) 2.5-2.5 % application 22 cream topically as needed for pain. Apply to port site. traZODone (DESYREL) Take 1-2 tablets 30 tablet 1 01/07/20 Active 50 mg tablet (50-100 mg total) 22 by mouth at bedtime. Take 50 mg daily at bedtime for at least 7 days. If ineffective, may trial increase to 100 mg daily at bedtime. heparin 100 unit/mL 5 mL (500 Units 60 mL 3 01/27/20 Active syringeIndications: total) by 22 Medication Therapy intra-catheter Chcf Not route once as Anticoagulant, needed for line Secondary Malignant care for up to 1 Neoplasm Liver dose. Flush IV (HCC), Malignant line AFTER 0.9% Neoplasm Of Sodium Chloride Pancreas (HCC) flush ondansetron Take 1 tablet (8 30 tablet 3 03/21/20 A ctive (ZOFRAN) 8 mg mg total) by 22 023 tabletIndications: mouth every 8 Malignant Neoplasm (eight) hours as Of Pancreas (HCC) needed for nausea or vomiting. OLANZapine Take 1 tablet (5 30 tablet 3 04/06/20 Ac tive (ZyPREXA) 5 mg mg total) by 22 tablet mouth at bedtime. pantoprazole Take 1 tablet (40 180 tablet 0 04/08/20 Active (PROTONIX) 40 mg EC mg total) by 22 tablet mouth 2 (two) times a day before breakfast and dinner. heparin 100 unit/mL 5 mL (500 Units 60 mL 3 04/19/20 Active syringeIndications: total) by 22 Medication Therapy intra-catheter Skid Adzer Not route once as Anticoagulant, needed for line Secondary Malignant care for up to 1 Neoplasm Liver dose. Flush IV (HCC), Malignant line AFTER 0.9% Neoplasm Of Sodium Chloride Pancreas (HCC) flush heparin 100 unit/mL 5 mL (500 Units 60 mL 3 04/19/20 Active syringeIndications: total) by 22 Medication Therapy intra-catheter Skid Adzer Not route once as Anticoagulant, needed for line Secondary Malignant care for up to 1 Neoplasm Liver dose. Flush IV (HCC), Malignant line AFTER 0.9% Neoplasm Of Sodium Chloride Pancreas (HCC) flush baclofen (LIORESAL) Take 1 tablet (10 90 tablet 3 05/18/20 Active 10 mg tablet mg total) by 22 022 mouth daily. Creon 24,000-76,000 TAKE 1 TO 3 120 capsule 2 05/23/20 Active -120,000 unit CAPSULES BY MOUTH 22 capsule THREE TIMES DAILY WITH MEALS LORazepam (ATIVAN) Take 2-4 tablets 60 tablet 2 06/06/20 Active 0.5 mg tablet (1-2 mg total) by 22 mouth every 6 (six) hours as needed for anxiety. ondansetron ODT Dissolve 1 tablet 30 tablet 3 06/06/20 Active (ZOFRAN-ODT) 8 mg (8 mg total) in 22 disintegrating the mouth every 8 tablet (eight) hours as needed for nausea or vomiting. prochlorperazine Take 1 tablet (10 30 tablet 3 06/13/2006/13 Active (COMPAZINE) 10 mg mg total) by 023 tabletIndications: mouth every 6 Secondary Malignant (six) hours as Neoplasm Liver needed for nausea (HCC), Malignant or vomiting Neoplasm Of (unrelieved by Pancreas (HCC) ondansetron). gabapentin TAKE 3 90 capsule 1 06/15/20 Active (NEURONTIN) 300 mg CAPSULES(900 MG) 22 capsule BY MOUTH AT BEDTIME HYDROmorphone Take 1-2 tablets 60 tablet 0 06/15/20 Active (DILAUDID) 2 mg (2-4 mg total) by 22 tabletIndications: mouth every 4 Chronic (four) hours as Pain/Nonacute Pain needed for severe pain or score 7-10 of 10 or moderate pain or score 4-6 of 10 Indication: Chronic Pain/Nonacute Pain. levoFLOXacin Take 750 mg by 0 03/15/20 Di scontinued (LEVAQUIN) 750 mg mouth daily. for (Therapy tablet 7 days completed) aifqso-dqswjxlp-qst Take 1-3 capsules 120 capsule 2 04/11/20 Discontinued lase (Creon) by mouth 3 022 24,000-76,000-120,0 (three) times a [address] day with meals. capsule HYDROmorphone Take 0.5-1 60 tablet 0 04/11/20 Disco ntinued (DILAUDID) 4 mg tablets (2-4 mg (Reorder) tabletIndications: total) by mouth Chronic every 6 (six) Pain/Nonacute Pain hours as needed for pain Indication: Chronic Pain/Nonacute Pain. gabapentin Take 3 capsules 90 capsule 1 04/19/20 Di scontinued (NEURONTIN) 300 mg (900 mg total) by 022 capsule mouth at bedtime. LORazepam (ATIVAN) TAKE 1 TABLET(0.5 10 tablet 2 05/17/2006/11 Discontinued 0.5 mg tablet MG) BY MOUTH 22 022 (Re order) EVERY 6 HOURS NEEDED FOR ANXIETY Research IRB Take 2 capsules 10 capsule 0 05/18/20 -31213 (10 mg total) by 22 022 onvansertib mouth daily for 5 (PCM-075) 5 mg doses. Take on capsuleIndications: Days 1 through 5 Medication Therapy of each 14 day Chcf Not course. Drug Anticoagulant, should be taken Secondary Malignant with a large Neoplasm Liver glass of plain (HCC), Malignant water without Neoplasm Of ice. Refrain from Pancreas (HCC) eating for 30 minutes following administration of Onvansertib. A light breakfast can be served between 30 minutes and 3 hours after drug intake. Research IRB Take 1 capsule 5 capsule 0 05/18/20 Ex pired -[id number] (20 mg total) by 22 022 onvansertib mouth daily for 5 (PCM-075) 20 mg doses. Take on capsuleIndications: Days 1 through 5 Medication Therapy of each 14 day Skid Adzer Not course. Drug Anticoagulant, should be taken Secondary Malignant with a large Neoplasm Liver glass of plain (HCC), Malignant water without Neoplasm Of ice. Refrain from Pancreas (HCC) eating for 30 minutes following administration of Onvansertib. A light breakfast can be served between 30 minutes and 3 hours after drug intake. HYDROmorphone Take 0.5-1 60 tablet 0 05/26/20 Disco ntinued (DILAUDID) 4 mg tablets (2-4 mg 022 (Patient tabletIndications: total) by mouth Discharge) Chronic every 6 (six) Pain/Nonacute Pain hours as needed for pain Indication: Chronic Pain/Nonacute Pain. HYDROmorphone Take 2-3 tablets 30 tablet 0 06/03/20 Discontinued (DILAUDID) 2 mg (4-6 mg total) by 22 022 (Reorder) tabletIndications: mouth every 4 Chronic (four) hours as Pain/Nonacute Pain needed for severe pain or score 7-10 of 10 or moderate pain or score 4-6 of 10 Indication: Chronic Pain/Nonacute Pain. Active Problems Problem Noted Date Dehydration 05/30/2022 Counseling Phase Of Life Problem 03/09/2022 Medication Therapy Chcf Not Anticoagulant 022 Nausea And Vomiting 10/25/2021 [...] cN0, cM0) - Signed by Maria Del Rsoario Gomez APRN, C.N.P., M.S. on 04/06/2022 Gastroesophageal Reflux Disease NOS 10/31/2012 Murmur Heart 11/28/2010 Overview: Echocardiogram done on 03/20/2008. Adjustment Disorder Mixed Reaction Resolved Problems Problem Noted Date Resolved Date [...] Pancreatitis Post Endoscopic Retrograde 07/30/2020 12/31/2020 Cholangiopancreatography Encounters Date Type Specialty Care Team Description 06/18/2022 Clinical Oncology Anshul Rachel Taina, Communication M.D. 06/15/2022 Infusion Oncology [place] pierre Secondary Ma lignant Neoplasm Liver (HCC) (Primary Dx); L, GUERO, C.N.P., Malignant N eoplasm Of Pancreas (HCC); M.S. Bacteremia 06/15/2022 Lab Infusion Therapy Maria Del Rosario Gomez Malignan t Neoplasm Of Pancreas (HCC) (Primary Dx); L, GUERO, C.N.P., Secondary M alignant Neoplasm Liver (HCC); M.S. Portal Vein Thr ombosis; Bacteremia 06/15/2022 Refill Oncology [place] pierre Med Refill LGUERO C.N.P., M.S. 06/15/2022 Clinical Oncology Sohan, Med Refill Communication Vy Hernandez (Diladid) R.N. 06/15/2022 Refill Oncology Carolee, Med Refill Vladislav Pereira M.D. (gabapentin ) 06/13/2022 [facility] Secondary Ma lignant Neoplasm Liver (HCC) (Primary Dx); L, GUERO C.N.P., Malignant N eoplasm Of Pancreas (HCC) M.S. 06/09/2022 Hospital Encounter Radiology Maria Del Rosario Gomez Malign ant Neoplasm Of Pancreas (HCC); L, GUERO C.N.P., Secondary M alignant Neoplasm Liver (HCC); M.S. Portal Vein Thrombosis Raymond Harrison M.D. 06/08/2022 Comprehensive Visit Radiology Veena Ricci Malign ant Neoplasm Of Pancreas (HCC); S, GUERO, C.N.P. Secondary Ma lignant Neoplasm Liver (HCC); Portal Vein Thr ombosis 06/07/2022 Clinical Radiology Lisseth Salgado Communication Ranjana, R.NRiaz 06/07/2022 Orders Only Radiology Lisseth Salgado Malignant Ne oplasm Of Pancreas (HCC) (Primary Dx); A, R.N. Secondary Malig nant Neoplasm Liver (HCC); Portal Vein Thr ombosis 06/06/2022 Office Visit Oncology [place] Malignant Ne oplasm Of Pancreas (HCC) (Primary Dx); L, GUERO, C.N.P., Secondary M alignant Neoplasm Liver (HCC); M.S. Portal Vein Thr ombosis 06/03/2022 Anesthesia Event Gastroenterology and Efren Triplett Hepatology Sandra, GUERO, ECHOMETER ENGINEER, DNAP 06/03/2022 Ancillary Procedure 06/01/2022 Office Visit Oncology Wes Mantilla Secondary Ma lignant Neoplasm Liver (HCC); R, M.D. Medication Ther apy Chcf Not Anticoagulant; Malignant Neopl asm Of Pancreas (HCC) 06/01/2022 Hospital Encounter Oncology Eliza Soto, Abdomin al Pain (Primary Dx); - P.A.-C. Malignant Neoplasm Of Pancreas Body (HCC ) 06/03/2022 Vishal Ac M.D. 06/01/2022 Lab Laboratory Medicine Jamee Glass Malignant Neoplasm Liver (HCC) (Primary Dx); Anya Sanchez APRN, Medication Therapy Skid Adzer Not Anticoagulant; C.N.P. Malignant Neopl asm Of Pancreas (HCC); Bacteremia 06/01/2022 Hospital Encounter Radiology Carolee, Malignant Neoplasm Vladislav Pereira M.D. Of Pancreas ( HCC) 05/30/2022 Infusion Infusion Therapy [place], Dehydration (Primary Dx); Charline Flores, Bacteremia GUIDANCE CONSULTANT, C.N.P., M.S. 05/30/2022 Office Visit Oncology Maria Del Rosario Gomez Dehydration (Primary Dx); GUERO Sanchez, C.N.P., Hyperbiliru binemia; M.S. Abdominal Pain; [place], Malignant Neopl asm Of Other Parts Of Pancreas (HCC); Charline Flores, Secondary Malig nant Neoplasm Liver (HCC) GUIDANCE CONSULTANT, C.N.P., M.S. 05/30/2022 Lab Infusion Therapy Maria Del Rosario Gomez Malignan t Neoplasm Of Pancreas (HCC) (Primary Dx); LGUERO, C.N.P., Bacteremia M.S. 05/30/2022 Orders Only Oncology Shreyas Kingston 05/27/2022 Clinical Oncology Franny, Follow up Communication Dinaa Pereira M.S.N., R.N. 05/26/2022 [facility] Refill LGUERO, C.N.P., M.S. 05/26/2022 Clinical Oncology Sohan, Rx Communication adriana Peterson-jose munoz 05/22/2022 Refill Oncology Maria Del Rosario Gomez Med Refill ( Creon) LGUERO, C.N.P., M.S. 05/20/2022 Orders Only Oncology Shreyas Kingston Medication Th erapy Chcf Not Anticoagulant (Primary Dx); Secondary Malig nant Neoplasm Liver (HCC); Malignant Neopl asm Of Pancreas (HCC) 05/18/2022 Infusion Oncology Quan, Secondary Malig nant Neoplasm Liver (HCC) (Primary Dx); Anya Sanchez APRN, Medication Therapy Skid Adzer Not Anticoagulant; C.N.P. Malignant Neopl asm Of Pancreas (HCC); Bacteremia 05/18/2022 Office Visit Oncology Wes Mantilla Secondary Ma lignant Neoplasm Liver (HCC) (Primary Dx); Chanelle Pereira Medication Ther apy Skid Adzer Not Anticoagulant; Malignant Neopl asm Of Pancreas (HCC) 05/18/2022 Lab Laboratory Medicine Jamee Glass Malignant Neoplasm Liver (HCC) (Primary Dx); Anya Sanchez APRN, Medication Therapy Chcf Not Anticoagulant; C.N.P. Malignant Neopl asm Of Pancreas (HCC); Bacteremia 05/18/2022 Orders Only Oncology Thee Shreyas R Medication Th erapy Chcf Not Anticoagulant (Primary Dx); Secondary Malig nant Neoplasm Liver (HCC); Malignant Neopl asm Of Pancreas (HCC) 05/14/2022 Refill Oncology Quan Med Refill Anya Sanchez APRN, (LORazepam ) C.N.P. 05/13/2022 Clinical Admitting/Central Pre-visit Intake Communication Scheduling 04/19/2022 Infusion Oncology Carolee, Secondary Malig nant Neoplasm Liver (HCC) (Primary Dx); Vladislav Pereira M.D. Medication Th erapy Chcf Not Anticoagulant; Malignant Neopl asm Of Pancreas (HCC); Bacteremia 04/19/2022 Office Visit Oncology Carolee, Secondary Malig nant Neoplasm Liver (HCC) (Primary Dx); Vladislav Pereira M.D. Medication Th erapy Chcf Not Anticoagulant; Malignant Neopl asm Of Pancreas (HCC) 04/19/2022 [facility] ([facility]) (Primary Dx); Vladislav Pereira M.D. Medication Th erapy Skid Adzer Not Anticoagulant; Malignant Neopl asm Of Pancreas (HCC); Bacteremia 04/19/2022 Orders Only Oncology Shreyas Kingston Malignant Siva plasm Of Pancreas (HC C) (Primary Dx) 04/11/2022 Clinical Oncology [facility] Refill reque st - Communication L, GUIDANCE CONSULTANT, C.N.P., Hydromorph one ; M.S. Refill request - Creon 04/11/2022 Refill Palliative Medicine [facility], Med Refi ll Marcelina Wilks, P.A.-C. 04/08/2022 Refill Oncology [facility] Med Refill L, GUIDANCE CONSULTANT, C.N.P., (pantoprazo le ) M.S. 04/07/2022 Orders Only Oncology Imelda Mir Medication Th erapy Skid Adzer Not Anticoagulant (Primary Dx); L, CCRP Secondary Malig nant Neoplasm Liver (HCC); Malignant Neopl asm Of Pancreas (HCC) 04/06/2022 Infusion Oncology [facility], Secondary Malig nant Neoplasm Liver (HCC) (Primary Dx); Vladislav Pereira M.D. Medication Th erapy Chcf Not Anticoagulant; Malignant Neopl asm Of Pancreas (HCC); Bacteremia 04/06/2022 Office Visit Oncology [facility] Secondary Ma lignant Neoplasm Liver (HCC) (Primary Dx); L, GUIDANCE CONSULTANT, C.N.P., Medication Therapy Chcf Not Anticoagulant; M.S. Malignant Neopl asm Of Pancreas (HCC) 04/06/2022 Lab Laboratory Medicine [facility] Malignant Neoplasm Liver (HCC) (Primary Dx); Vladislav Pereira M.D. Medication Th erapy Skid Adzer Not Anticoagulant; Malignant Neopl asm Of Pancreas (HCC); Bacteremia 04/06/2022 Clinical Oncology Emma Mora, Communication R.N. 04/06/2022 Clinical Oncology Emma Mora, Communication R.N. 04/06/2022 Orders Only Oncology Shreyas Kingston 04/04/2022 Clinical Oncology Emma Mora, Communication R.N. 04/04/2022 Documentation Oncology Day, [place] C, M.D. 03/30/2022 Clinical Admitting/Central Communication Scheduling 03/25/2022 Refill Oncology Maria Del Rosario Gomez Med Refill GUERO Sanchez C.N.PRiaz, (pantoprazo le ) M.S. 03/21/2022 Infusion Oncology [facility], [facility] Malig nant Neoplasm Liver (HCC) (Primary Dx); Vladislav Pereira M.D. Medication Th erapy Skid Adzer Not Anticoagulant; Malignant Neopl asm Of Pancreas (HCC); Bacteremia 03/21/2022 Office Visit Oncology Maria Del Rosario Gomez Secondary Ma lignant Neoplasm Liver (HCC) (Primary Dx); GUERO Sanchez C.N.P., Medication Therapy Skid Adzer Not Anticoagulant; M.S. Malignant Neoplasm Of Pancreas (HCC) Anya Glass APRN, C.N.P. 03/21/2022 Lab Laboratory Medicine [facility]olee [facility] Malignant Neoplasm Liver (HCC) (Primary Dx); Vladislav Pereira M.D. Medication Th erapy Skid Adzer Not Anticoagulant; Malignant Neopl asm Of Pancreas (HCC); Bacteremia from Last 3 Months Immunizations Name Administration Dates Next Due Td (Adult), adsorbed 03/22/2006 influenza vaccine quad (FLUZONE/FLUARIX) (6 months and 10/02 older)(PF) Family History Medical History Relation Name Comments Lung cancer Maternal Grandmother Karey Alcohol abuse Mother Fortino Relation Name Status Comments Maternal Grandmother Karey Mother Fortino Social History Tobacco Use Types Packs/Day Years Used Date Smoking Tobacco: Never Smokeless Tobacco: Never Tobacco Cessation: Counseling Given: Not Answered Alcohol Use Standard Drinks/Week Comments Never 0 [...] er 01/15/2021 How often do you attend quaker or bahai services? 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 Vital Signs Vital Sign Reading Time Taken Comments Blood Pressure 101/69 06/15/2022 8:02 AM CDT Pulse 72 06/15/2022 8:02 AM CDT Temperature 36.2 ??C (97.2 ??F) 06/15/2022 8:02 AM CDT Respiratory Rate 20 06/15/2022 8:02 AM CDT Oxygen Saturation 100% 06/09/2022 3:58 PM CDT Inhaled Oxygen Concentration - - Weight 73.1 kg (161 lb 0.7 oz) 06/15/2022 8:02 AM CDT Height 177.3 cm (5' 9.8) 06/06/2022 11:01 AM CDT Body Mass Index 23.24 06/06/2022 11:01 AM CDT Plan of Treatment Upcoming Encounters Date Type Specialty Care Team Description 06/22/2022 Lab Laboratory Medicine Maria Del Rosario Gomez AP RN, C.N.P., M.S. [address] [place] [address] [phone] (Mj godoy) 06/22/2022 Infusion Oncology Maria Del Rosario Gomez APRN, C.N .P., M.S. [address] [place] [address] [phone] (Mj godoy) 06/29/2022 Lab Laboratory Medicine Maria Del Rosario Gomez AP RN, C.N.P., M.S. [address] [place] [address] [phone] (Mj godoy) 06/29/2022 Infusion Oncology Maria Del Rosario Gomez APRN, C.N .P., M.S. [address] [place] [address] [phone] (Wo rk) Health Maintenance Due Date Last Done Comments CT Colonography 1965 Cologuard 1965 Colonoscopy 1965 Colorectal Cancer Screening 1965 FIT 1965 Hepatitis B Vaccines (1 of 3 - 1965 3-dose series) Hepatitis C Screening 1965 Pneumococcal vaccine (0-64 years) 1970 (1 - PCV) Zoster Vaccines (1 of 2) 1983 COVID-19 Vaccine (4 - Booster for 10/20/2021 08/25/2021, , Pfizer series) 12/01/2020 Influenza Vaccine (#1) 2022 10/02/2020, 06/15/2010 DTaP,Tdap,and Td Vaccines (2 - Td 10/31/2022 10/31/2012, , or Tdap) 03/22/2006, Additional history exists Lipid (Cholesterol) Screening 12/01/2023 11/30/2018 Fasting Glucose for Diabetes 06/15/2025 06/15/2022, 022, Screening 06/01/2022, Additional history exists Depression Screening (Annual Completed 10/01/2021 PHQ-2) Medical Devices Implanted Type Area Pantry Goods Maker Device Shelf Model / Identifier Expiration Serial / Date Lot Stnt Wll 0.035 Rx Ncvr 10x40 - [id number] Biliary Stent B oston 06/11/2022 [id number] / Implanted: Qty: 1 on 10/01/2020 by John Olson M.D. at [facility] Scientific / [id number] [facility] Zm Otw Set 10 - [id number] Biliary Stent N/A: Cook [employer] al 06/17/2023 [id number] / Implanted: Qty: 1 on 11/10/2020 by Wally Asencio M.D. at [facility]/[employer] / [id number] Stnt Protege 0.035 [id number] - [id number] Biliary Stent Medtronic 04/05/2025 [id number] / Implanted: Qty: 1 on 06/09/2022 by Raymond Ceja M.D. at [facility] / [id number] Embolization Embolization Left: Coil Coil Abdomen Description: Embolization coils along le ft gonadal vein. MRI conditional at 1.5T and 3T. Normal/Normal mode. Allow Delay Star t should be turned off. Approved by Dr. Chávez and Dr. Hopkins. Brian Cifuentes 09/09/20 Coil Mreye .[id number] - [id number] Embolization Coil V[employer] 04/15/2027 [id number] / Implanted: Qty: 1 on 06/09/2022 by Raymond Ceja M.D. at [facility] / [id number] Stnt Axios 15x10 - [id number] Esophageal Stent Melfa S cientific 07/31/2022 [id number] / Implanted: Qty: 1 on 10/29/2020 by Adam Simpson M.D. at [facility]/[place] / [id number] Description: [email or web address] Prt Cath Infus Mri Intrmd 8f - [id number] Implantable [employer] 01/08/2022 [id number] / Implanted: Qty: 1 on 11/05/2020 by Reji Wolff M.D. at [facility] / [id number] Stnt Ihsan Wallfx Rx 10x40 - [id number] Pancreatic Stent Melfa Scientific 01/17/2023 [id number] / Implanted: Qty: 1 on 03/19/2021 by Wally Asencio M.D. at [facility] / [id number] Explanted Type Area Pantry Goods Maker Device Shelf Model / Identifier Expiration Serial / Lot Date [facility] Uret No Gw Cnt 7fx20 - [id number] Biliary Melfa 07/03/2023 [id number] / Implanted: Qty: 1 on 10/29/2020 by Adam Simpson M. D. at [facility]/[place] Stent Scientific / Explanted: Qty: 1 on 11/10/2020 by Wally Asencio M.D. at [facility] [place] [id number] Stnt Uret No Gw Cnt 7fx20 - [id number] Biliary Melfa 07/15/2023 [id number] / Implanted: Qty: 1 on 10/26/2020 by Adam Simpson M. D. at [facility] Stent Scientific / Explanted: Qty: 1 on 11/27/2020 [id number] Stnt Ctt Otw 9 - [id number] Biliary Cook [employer] 08/16/2022 [id number] / Implanted: Qty: 1 on 12/11/2020 by Adam Simpson M.D. at [facility] [employer]. / Explanted: Qty: 1 on 03/19/2021 by Wally Asencio M.D. at [facility] [id number] Procedures Procedure Name Priority Date/Time Associated Comments Diagnosis CBC WITH DIFFERENTIAL, Routine 06/15/2022 6:24 Malignant Re sults for B AM CDT Neoplasm Of this procedure Pancreas (HCC) are in the Secondary results Malignant section. Neoplasm Liver (HCC) Portal Vein Thrombosis BILIRUBIN DIRECT, S/P Routine 06/15/2022 6:23 Secondary Res ults for AM CDT Malignant this procedure Neoplasm Liver are in the (HCC) results Malignant section. Neoplasm Of Pancreas (HCC) COMPREHENSIVE METABOLIC Routine 06/15/2022 6:23 Secondary R esults for PANEL, S/P AM CDT Malignant this procedure Neoplasm Liver are in the (HCC) results Malignant section. Neoplasm Of Pancreas (HCC) IR TRANSHEPATIC PORTAL RAD - Routine 06/09/2022 2:20 Malignant R esults for VENOGRAM (most inpatients PM CDT Neoplasm Of this proced ure and all Pancreas (HCC) are in the outpatients) Secondary results Malignant section. Neoplasm Liver (HCC) Portal Vein Thrombosis ADULT OXYGEN THERAPY Routine 06/09/2022 12:47 PM CDT FL FLUORO LESS THAN 1 RAD - Routine 06/03/2022 8:43 Re sults for HOUR (most inpatients AM CDT this proced ure and all are in the outpatients) results section. GASTROENTEROLOGY IMAGE Routine 06/03/2022 7:40 Re sults for EXAM AM CDT this procedure are in the results section. ERCP Routine 06/03/2022 7:37 Results for AM CDT this procedure are in the results section. EGD Routine 06/03/2022 7:37 (ESOPHAGEALGASTRODUODEN AM CDT OSCOPY) US MESENTERIC ARTERY RAD - Routine 06/02/2022 3:17 Res ults for (most inpatients PM CDT this proced ure and all are in the outpatients) results section. BASIC METABOLIC PANEL, Routine 06/02/2022 5:00 Re sults for S/P AM CDT this procedure are in the results section. SARS COV-2 RNA, PCR, Routine 06/01/2022 9:12 Resu lts for VARIES PM CDT this procedure are in the results section. VRE PCR Routine 06/01/2022 9:12 Results for PM CDT this procedure are in the results section. ECG Routine 06/01/2022 9:02 Results for PM CDT this procedure are in the results section. [facility], B Routine 06/01/2022 8:36 Malignant Re sults for AM CDT Neoplasm Of this procedure Pancreas (HCC) are in the results section. ALANINE Routine 06/01/2022 8:34 Secondary Results for AMINOTRANSFERASE (ALT), AM CDT Malignant this procedure S/P Neoplasm Liver are in the (HCC) results Medication section. Therapy Skid Adzer Not Anticoagulant Malignant Neoplasm Of Pancreas (HCC) ASPARTATE Routine 06/01/2022 8:34 Secondary Results for AMINOTRANSFERASE (AST), AM CDT Malignant this procedure S/P Neoplasm Liver are in the (HCC) results Medication section. Therapy Chcf Not Anticoagulant Malignant Neoplasm Of Pancreas (HCC) BILIRUBIN, TOT, S/P Routine 06/01/2022 8:34 Secondary Resul ts for AM CDT Malignant this procedure Neoplasm Liver are in the (HCC) results Medication section. Therapy Skid Adzer Not Anticoagulant Malignant Neoplasm Of Pancreas (HCC) ALKALINE PHOSPHATASE, Routine 06/01/2022 8:34 Secondary Res ults for S/P AM CDT Malignant this procedure Neoplasm Liver are in the (HCC) results Medication section. Therapy [facility] Not Anticoagulant Malignant Neoplasm Of Pancreas (HCC) MAGNESIUM, S Routine 06/01/2022 8:34 Secondary Results for AM CDT Malignant this procedure Neoplasm Liver are in the (HCC) results Medication section. Therapy [facility] Not Anticoagulant Malignant Neoplasm Of Pancreas (HCC) PHOSPHORUS (INORGANIC), Routine 06/01/2022 8:34 Secondary R esults for S AM CDT Malignant this procedure Neoplasm Liver are in the (HCC) results Medication section. Therapy Skid Adzer Not Anticoagulant Malignant Neoplasm Of Pancreas (HCC) ALBUMIN, S/P Routine 06/01/2022 8:34 Secondary Results for AM CDT Malignant this procedure Neoplasm Liver are in the (HCC) results Medication section. Therapy [facility] Not Anticoagulant Malignant Neoplasm Of Pancreas (HCC) BASIC METABOLIC PANEL, Routine 06/01/2022 8:34 Secondary Re sults for S/P AM CDT Malignant this procedure Neoplasm Liver are in the (HCC) results Medication section. Therapy [facility] Not Anticoagulant Malignant Neoplasm Of Pancreas (HCC) CBC WITH DIFFERENTIAL, Routine 06/01/2022 8:34 Secondary Re sults for B AM CDT Malignant this procedure Neoplasm Liver are in the (HCC) results Medication section. Therapy [facility] Not Anticoagulant Malignant Neoplasm Of Pancreas (HCC) CT ABDOMEN PELVIS WITH RAD - Routine 06/01/2022 7:27 Malignant R esults for IV CONTRAST (most inpatients AM CDT Neoplasm Of this proced ure and all Pancreas (HCC) are in the outpatients) results section. CT CHEST WITH IV RAD - Routine 06/01/2022 7:27 Malignant Results for CONTRAST (most inpatients AM CDT Neoplasm Of this proced ure and all Pancreas (HCC) are in the outpatients) results section. COMPREHENSIVE METABOLIC Routine 05/30/2022 Malignant Resu lts for PANEL, S/P 12:44 PM CDT Neoplasm Of this procedure Pancreas (HCC) are in the results section. CBC WITH DIFFERENTIAL, Routine 05/30/2022 Malignant Resul ts for B 12:44 PM CDT Neoplasm Of this procedure Pancreas (HCC) are in the results section. CARBOHYDRATE AG 19-9 Routine 05/18/2022 Malignant Results for (CA 19-9), S 11:18 AM CDT Neoplasm Of this procedure Pancreas (HCC) are in the results section. ALANINE Routine 05/18/2022 Secondary Results for AMINOTRANSFERASE (ALT), 11:18 AM CDT Malignant this procedure S/P Neoplasm Liver are in the (HCC) results Medication section. Therapy Skid Adzer Not Anticoagulant Malignant Neoplasm Of Pancreas (HCC) ASPARTATE Routine 05/18/2022 Secondary Results for AMINOTRANSFERASE (AST), 11:18 AM CDT Malignant this procedure S/P Neoplasm Liver are in the (HCC) results Medication section. Therapy [facility] Not Anticoagulant Malignant Neoplasm Of Pancreas (HCC) BILIRUBIN, TOT, S/P Routine 05/18/2022 Secondary Results for 11:18 AM CDT Malignant this procedure Neoplasm Liver are in the (HCC) results Medication section. Therapy [facility] Not Anticoagulant Malignant Neoplasm Of Pancreas (HCC) ALKALINE PHOSPHATASE, Routine 05/18/2022 Secondary Result s for S/P 11:18 AM CDT Malignant this procedure Neoplasm Liver are in the (HCC) results Medication section. Therapy Skid Adzer Not Anticoagulant Malignant Neoplasm Of Pancreas (HCC) MAGNESIUM, S Routine 05/18/2022 Secondary Results for 11:18 AM CDT Malignant this procedure Neoplasm Liver are in the (HCC) results Medication section. Therapy [facility] Not Anticoagulant Malignant Neoplasm Of Pancreas (HCC) PHOSPHORUS (INORGANIC), Routine 05/18/2022 Secondary Resu lts for S 11:18 AM CDT Malignant this procedure Neoplasm Liver are in the (HCC) results Medication section. Therapy Skid Adzer Not Anticoagulant Malignant Neoplasm Of Pancreas (HCC) ALBUMIN, S/P Routine 05/18/2022 Secondary Results for 11:18 AM CDT Malignant this procedure Neoplasm Liver are in the (HCC) results Medication section. Therapy Skid Adzer Not Anticoagulant Malignant Neoplasm Of Pancreas (HCC) BASIC METABOLIC PANEL, Routine 05/18/2022 Secondary Resul ts for S/P 11:18 AM CDT Malignant this procedure Neoplasm Liver are in the (HCC) results Medication section. Therapy [facility] Not Anticoagulant Malignant Neoplasm Of Pancreas (HCC) CBC WITH DIFFERENTIAL, Routine 05/18/2022 Secondary Resul ts for B 11:18 AM CDT Malignant this procedure Neoplasm Liver are in the (HCC) results Medication section. Therapy Skid Adzer Not Anticoagulant Malignant Neoplasm Of Pancreas (HCC) [facility] [place], B Routine 04/19/2022 8:43 Malignant Re sults for AM CDT Neoplasm Of this procedure Pancreas (HCC) are in the results section. ALANINE Routine 04/19/2022 8:43 Secondary Results for AMINOTRANSFERASE (ALT), AM CDT Malignant this procedure S/P Neoplasm Liver are in the (HCC) results Medication section. Therapy [facility] Not Anticoagulant Malignant Neoplasm Of Pancreas (HCC) ASPARTATE Routine 04/19/2022 8:43 Secondary Results for AMINOTRANSFERASE (AST), AM CDT Malignant this procedure S/P Neoplasm Liver are in the (HCC) results Medication section. Therapy Skid Adzer Not Anticoagulant Malignant Neoplasm Of Pancreas (HCC) BILIRUBIN, TOT, S/P Routine 04/19/2022 8:43 Secondary Resul ts for AM CDT Malignant this procedure Neoplasm Liver are in the (HCC) results Medication section. Therapy [facility] Not Anticoagulant Malignant Neoplasm Of Pancreas (HCC) ALKALINE PHOSPHATASE, Routine 04/19/2022 8:43 Secondary Res ults for S/P AM CDT Malignant this procedure Neoplasm Liver are in the (HCC) results Medication section. Therapy [facility] Not Anticoagulant Malignant Neoplasm Of Pancreas (HCC) MAGNESIUM, S Routine 04/19/2022 8:43 Secondary Results for AM CDT Malignant this procedure Neoplasm Liver are in the (HCC) results Medication section. Therapy Skid Adzer Not Anticoagulant Malignant Neoplasm Of Pancreas (HCC) PHOSPHORUS (INORGANIC), Routine 04/19/2022 8:43 Secondary R esults for S AM CDT Malignant this procedure Neoplasm Liver are in the (HCC) results Medication section. Therapy Skid Adzer Not Anticoagulant Malignant Neoplasm Of Pancreas (HCC) ALBUMIN, S/P Routine 04/19/2022 8:43 Secondary Results for AM CDT Malignant this procedure Neoplasm Liver are in the (HCC) results Medication section. Therapy [facility] Not Anticoagulant Malignant Neoplasm Of Pancreas (HCC) BASIC METABOLIC PANEL, Routine 04/19/2022 8:43 Secondary Re sults for S/P AM CDT Malignant this procedure Neoplasm Liver are in the (HCC) results Medication section. Therapy Skid Adzer Not Anticoagulant Malignant Neoplasm Of Pancreas (HCC) CBC WITH DIFFERENTIAL, Routine 04/19/2022 8:43 Secondary Re sults for B AM CDT Malignant this procedure Neoplasm Liver are in the (HCC) results Medication section. Therapy Skid Adzer Not Anticoagulant Malignant Neoplasm Of Pancreas (HCC) [facility] [place], B Routine 04/06/2022 8:31 Secondary Re sults for AM CDT Malignant this procedure Neoplasm Liver are in the (HCC) results Medication section. Therapy Skid Adzer Not Anticoagulant Malignant Neoplasm Of Pancreas (HCC) ALANINE Routine 04/06/2022 8:31 Secondary Results for AMINOTRANSFERASE (ALT), AM CDT Malignant this procedure S/P Neoplasm Liver are in the (HCC) results Medication section. Therapy [facility] Not Anticoagulant Malignant Neoplasm Of Pancreas (HCC) ASPARTATE Routine 04/06/2022 8:31 Secondary Results for AMINOTRANSFERASE (AST), AM CDT Malignant this procedure S/P Neoplasm Liver are in the (HCC) results Medication section. Therapy [facility] Not Anticoagulant Malignant Neoplasm Of Pancreas (HCC) BILIRUBIN, TOT, S/P Routine 04/06/2022 8:31 Secondary Resul ts for AM CDT Malignant this procedure Neoplasm Liver are in the (HCC) results Medication section. Therapy [facility] Not Anticoagulant Malignant Neoplasm Of Pancreas (HCC) ALKALINE PHOSPHATASE, Routine 04/06/2022 8:31 Secondary Res ults for S/P AM CDT Malignant this procedure Neoplasm Liver are in the (HCC) results Medication section. Therapy [facility] Not Anticoagulant Malignant Neoplasm Of Pancreas (HCC) MAGNESIUM, S Routine 04/06/2022 8:31 Secondary Results for AM CDT Malignant this procedure Neoplasm Liver are in the (HCC) results Medication section. Therapy Skid Adzer Not Anticoagulant Malignant Neoplasm Of Pancreas (HCC) PHOSPHORUS (INORGANIC), Routine 04/06/2022 8:31 Secondary R esults for S AM CDT Malignant this procedure Neoplasm Liver are in the (HCC) results Medication section. Therapy Skid Adzer Not Anticoagulant Malignant Neoplasm Of Pancreas (HCC) ALBUMIN, S/P Routine 04/06/2022 8:31 Secondary Results for AM CDT Malignant this procedure Neoplasm Liver are in the (HCC) results Medication section. Therapy Skid Adzer Not Anticoagulant Malignant Neoplasm Of Pancreas (HCC) BASIC METABOLIC PANEL, Routine 04/06/2022 8:31 Secondary Re sults for S/P AM CDT Malignant this procedure Neoplasm Liver are in the (HCC) results Medication section. Therapy Skid Adzer Not Anticoagulant Malignant Neoplasm Of Pancreas (HCC) CBC WITH DIFFERENTIAL, Routine 04/06/2022 8:31 Secondary Re sults for B AM CDT Malignant this procedure Neoplasm Liver are in the (HCC) results Medication section. Therapy [facility] Not Anticoagulant Malignant Neoplasm Of Pancreas (HCC) ALANINE Routine 03/21/2022 7:47 Secondary Results for AMINOTRANSFERASE (ALT), AM CDT Malignant this procedure S/P Neoplasm Liver are in the (HCC) results Medication section. Therapy [facility] Not Anticoagulant Malignant Neoplasm Of Pancreas (HCC) ASPARTATE Routine 03/21/2022 7:47 Secondary Results for AMINOTRANSFERASE (AST), AM CDT Malignant this procedure S/P Neoplasm Liver are in the (HCC) results Medication section. Therapy Skid Adzer Not Anticoagulant Malignant Neoplasm Of Pancreas (HCC) BILIRUBIN, TOT, S/P Routine 03/21/2022 7:47 Secondary Resul ts for AM CDT Malignant this procedure Neoplasm Liver are in the (HCC) results Medication section. Therapy [facility] Not Anticoagulant Malignant Neoplasm Of Pancreas (HCC) ALKALINE PHOSPHATASE, Routine 03/21/2022 7:47 Secondary Res ults for S/P AM CDT Malignant this procedure Neoplasm Liver are in the (HCC) results Medication section. Therapy [facility] Not Anticoagulant Malignant Neoplasm Of Pancreas (HCC) MAGNESIUM, S Routine 03/21/2022 7:47 Secondary Results for AM CDT Malignant this procedure Neoplasm Liver are in the (HCC) results Medication section. Therapy [facility] Not Anticoagulant Malignant Neoplasm Of Pancreas (HCC) PHOSPHORUS (INORGANIC), Routine 03/21/2022 7:47 Secondary R esults for S AM CDT Malignant this procedure Neoplasm Liver are in the (HCC) results Medication section. Therapy [facility] Not Anticoagulant Malignant Neoplasm Of Pancreas (HCC) ALBUMIN, S/P Routine 03/21/2022 7:47 Secondary Results for AM CDT Malignant this procedure Neoplasm Liver are in the (HCC) results Medication section. Therapy [facility] Not Anticoagulant Malignant Neoplasm Of Pancreas (HCC) BASIC METABOLIC PANEL, Routine 03/21/2022 7:47 Secondary Re sults for S/P AM CDT Malignant this procedure Neoplasm Liver are in the (HCC) results Medication section. Therapy [facility] Not Anticoagulant Malignant Neoplasm Of Pancreas (HCC) CBC WITH DIFFERENTIAL, Routine 03/21/2022 7:47 Secondary Re sults for B AM CDT Malignant this procedure Neoplasm Liver are in the (HCC) results Medication section. Therapy Skid Adzer Not Anticoagulant Malignant Neoplasm Of Pancreas (HCC) from Last 3 Months Results (ABNORMAL) CBC with Differential, Blood (06/15/2022 6:24 AM CDT)Only the most recent of7 resultswithin the time period is included. [facility] Method Time Signature Hemoglobin 11.5 (L) 13.2 [...] AM CDT Maria Del Rosario Gomez APRN, Remy.N.P., M.S. LAB BLOOD ADD-ON Performing Organization Address City/[facility] Code Phon e Number [facility] - [address] [place], [place] [address] [facility] [place] [address] Laboratories-[facility] [address] [facility] Bilirubin, Direct (06/15/2022 6:23 AM CDT) P athologist Signature Bilirubin, <0.2 0.0 - 0.3 06/15/2022 DTL Direct, S mg/dL 7:17 AM CDT Specimen Anatomical Collection Method Collection Time Receive d Time (Source) Location / / Volume Laterality Blood (Blood, 06/15/2022 6:23 AM 06/15/20 6:58 Venous) CDT AM CDT Remy Willson APRN.N.P., M.S. LAB BLOOD ADD-ON Performing Organization Address City/State/ZIP Code Phon e Number [facility] - [address] [place], [place] [address] [facility] [place] [address] Laboratories-[facility] [address] (ABNORMAL) Comprehensive Metabolic Panel (06/15/2022 6:23 AM CDT)Only the most recent of2 resultswithin the time period is included. P athologist Signature Potassium, S 4.3 3.6 - [...] Venous) CDT AM CDT Maria Del Rosario Laura Gomez APRN, C.N.P., M.S. LAB BLOOD ADD-ON Performing Organization Address City/State/ZIP Code Phon e Number [facility] - [address] [place], [place] [address] [facility] [place] [address] Laboratories-[facility] [address] IR Transhepatic [...] AccuStick introducer was exchanged for a 6 [place] sheath and a 12 mm in diameter [...] AccuStick introducer was exchanged for a 6 [place] sheath and a 12 mm in diameter [...] mesenteric vein NR Maria Del Rosario Gomez APRN C.N.P., M.S. IMG IR PROCEDURES FL Fluoro Less Than 1 Hour (06/03/2022 8:43 AM CDT) Specimen (Source) Anatomical Location Collection Method / Collectio n Time Received Time / Laterality Volume Narrative ERCP LOS RST - 06/03/2022 8:44 AM CDT This exam does not require a radiologist review or interpretation. Please refer to the patient's medical record on this date for clinical details. Aundrea Mercado M.D. IMG FLUOROSCOPY PROCEDURES Performing Organization Address [facility]/ZIP Code Phon e Number ERCP LOS RST ERCP-Gastroenterology Image Exam (06/03/2022 7:40 AM CDT) Specimen (Source) Anatomical Collection Method Collection Time Re ceived Time Location / / Volume Laterality 06/03/2022 7:37 AM CDT Narrative IIMS - 06/03/2022 10:47 AM CDT This order has been created and auto-finalized to support the import of images acquired without order. The clini rudy documentation to support these images can be found on the encounter pritesh t produced images. Provider Not In System IMG NON RAD IMAGING PROCEDUR ES Performing Organization Address City/[facility]/ZIP Code Phon e Number IIMS IIMS NA ERCP (06/03/2022 7:37 AM CDT) Specimen (Source) [...] AM CDT Gonda 2 GI Patient Name: Adam Campbell Date of : 1965 Age: 57 Gender: Male Procedure Date: 06/03/2022 Procedure: ? ERCP Providers: ? Basia Chaudhari MD Referring Provider: ?Aundrea george Pre-op Diagnoses: ?Abdominal p ain of suspected biliary origin, Elevated ? ihsan irubin, Bile duct stricture Recommendation: ? - [...] double pigtails were visible ? on the safety and occupational health manager film. A standard eso phagogastroduodenoscopy scope was [...] Organization Address City/State/ZIP Code Phon e Number [employer] NA US Mesenteric Artery (06/02/2022 3:17 [...] stenosis. 2. Normal caliber abdominal aorta. Aundrea HIGUERAG US PROCEDURES (ABNORMAL) Basic Metabolic Panel (06/02/2022 5:00 AM CDT)Only the most recent of 6 resultswithin the time period is included. P athologist Signature Potassium, S 3.4 (L) [...] M.D. LAB BLOOD ADD-ON Performing Organization Address City/State/ZIP Code Phon e Number [facility] - [address] [place] [address] [facility] [place] [address] Laboratories-[facility] [address] [facility] SARS CoV-2 RNA, PCR, Varies Asymptomatic (06/01/2022 9:12 PM CDT) [facility] Method Time Signature SARS CoV-2 Swab, 06/02/2022 [...] Drug Administration an d is used per torque tester's instructions. Performance characteristics were verified by [facility] in a manner consistent with CLIA requirements. Visit the CDC website: https://www.cdc.g ov/coronavirus/ for the most recent guidelines on Coron avirus testing. Fact Sheet for Healthcare Providers: https://www.fda.gov/media/465156/downloa d Fact Sheet for Patients: https://www.fda.gov/media/821199/downloa d Specimen Anatomical Collection Method Collection Time Receive d Time (Source) Location / / Volume Laterality Varies 06/01/2022 9:12 PM 2 9:36 (Nasopharynx) CDT PM CDT Vishal Ac M.D. LAB MICROBIOLOGY - GENERAL O CAMIOL Performing Organization Address City/[facility] Phon e Number [facility] - [address] [place], [place] [address] [place] [address] [facility] [address] [facility] VRE PCR (06/01/2022 9:12 PM CDT) [facility] gist Method Time Signature Specimen Swab, 06/02/2022 DT Source Perianal 11:02 PM CDT VRE PCR Negative Negative 06/02/2022 DTL 11:02 PM CDT Comment: ----ADDITIONAL INFORMATION---- This test was developed using an analyte specific reagent. Its performance characteristics were determined by [facility] in a manner consistent with CLIA requirements. This test has not bee n cleared or approved by the U.S. Food and Drug Administration. Specimen Anatomical Collection Method Collection Time Receive d Time (Source) Location / / Volume Laterality Varies 06/01/2022 9:12 PM 2 9:37 (Perianal) CDT PM CDT Vishal Ac M.D. LAB MICROBIOLOGY - GENERAL Clara PAGE Performing Organization Address City/[facility] Phon e Number [facility] - [address] [place], [place] [address] [place] [address] [facility]-[address] ECG 12 Lead (06/01/2022 9:02 PM CDT) P athologist Signature Ventricular Rate 73 BPM MUSE ECG/Min SD Interval 182 ms MUSE QRSD Interval 104 ms MUSE QT Interval 418 ms MUSE QTC Interval 460 ms MUSE P Barnum 75 degrees MUSE R Barnum 18 degrees MUSE T Wave Barnum 16 degrees MUSE Specimen Anatomical Collection Method [...] is no t available. Procedure Note Tim Sosa M.D. - 06/01/2022Fo rmatting of this note might be different from the original. IMPRESSION: Normal sinus rhythm Normal ECG When compared with ECG of 23-AUG-2021 11 :43, No significant change was found Reviewed by HAROON Anne Quan Cunningham M.D. ECG ORDERABLES Performing Organization Address City/State/ZIP Code Phon e Number LORENZO VENTURA NA Miscellaneous Research, B (06/01/2022 8:36 AM CDT)Only the most recent of3 resultswithin the time period is included. P athologist Signature Number of 3 06/01/2022 S Specimens 8:36 AM CDT Specimen Anatomical Collection Method Collection Time Receive d Time (Source) Location / / Volume Laterality Varies (Blood, 06/01/2022 8:36 AM 022 8:36 Venous) CDT AM CDT Vladislav Zarco M.D. LAB RESEARCH NO RESULT ROUTI NG Performing Organization Address City/[facility]/ZIP Code Phon e Number [facility] - [address] [place], [place] [address] [place] [address] Laboratories[facility] [address] [facility] ALT (Alanine Aminotransferase) (06/01/2022 8:34 AM CDT)Only the most recent of5 resultswithin the time period is included. Patholo gist Method Time Signature Alanine 51 7 - 55 06/01/2022 DTL Aminotransferase U/L 9:32 AM CDT (ALT), S Specimen Anatomical Collection Method Collection Time Receive d Time (Source) Location / / Volume Laterality Blood (Blood, 06/01/2022 8:34 AM 06/01/20 9:12 Venous) CDT AM CDT Anya Glass APRN, C.N.P. LAB BLOOD ADD-ON Performing Organization Address City/[facility] Code Phon e Number [facility] - [address] [place], [place] [address] [facility] [place] [address] AST (Aspartate Aminotransferase) (06/01/2022 8:34 AM CDT)Only the most recent of 5 resultswithin the time period is included. Patholo gist Method Time Signature Aspartate 19 8 - 48 06/01/2022 [facility] Aminotransferase U/L 9:27 AM CDT (AST), P Specimen Anatomical Collection Method Collection Time Receive d Time (Source) Location / / Volume Laterality Blood (Blood, 06/01/2022 8:34 AM 06/01/20 22 8:53 Venous) CDT AM CDT Remy Irby APRN.N.P. LAB BLOOD ADD-ON Performing Organization Address [facility] Code Phon e Number [facility] - [address] [place] [address] [facility] [place] [address] Phosphorus Inorganic (06/01/2022 8:34 AM CDT)Only the most recent of5 results within the time period is included. P athologist Signature Phosphorus 3.6 2.5 - 4.5 06/01/2022 DTL (Inorganic), S mg/dL 9:32 AM CDT Specimen Anatomical Collection Method Collection Time Receive d Time (Source) Location / / Volume Laterality Blood (Blood, 06/01/2022 8:34 AM 06/01/20 22 9:12 Venous) CDT AM CDT Anya Glass APRN, C.N.P. LAB BLOOD ADD-ON Performing Organization Address City/[facility] Phon e Number [facility] - [address] [place] [address] [facility] [place] [address] (ABNORMAL) Alkaline Phosphatase (06/01/2022 8:34 AM CDT)Only the most recent of5 resultswithin the time period is included. P athologist Signature Alkaline 289 (H) 40 - 129 06/01/2022 DTL Phosphatase, S U/L 9:32 AM CDT Specimen Anatomical Collection Method Collection Time Receive d Time (Source) Location / / Volume Laterality Blood (Blood, 06/01/2022 8:34 AM 06/01/20 9:12 Venous) CDT AM CDT Anya Glass APRN, C.N.P. LAB BLOOD ADD-ON Performing Organization Address City/[facility]/[place] [facility] Number [facility] - [address] Magnesium (06/01/2022 8:34 AM CDT)Only the most recent of5 resultswithin the time period is included. P athologist Signature Magnesium, S 1.9 1.7 - 2.3 06/01/2022 DTL mg/dL 9:32 AM CDT Specimen Anatomical Collection Method Collection Time Receive d Time (Source) Location / / Volume Laterality Blood (Blood, 06/01/2022 8:34 AM 06/01/20 9:12 Venous) CDT AM CDT Anya Glass APRN, C.N.P. LAB BLOOD ADD-ON Performing Organization Address City/[facility] Phon e Number [facility] - [address] Bilirubin, Total (06/01/2022 8:34 AM CDT)Only the most recent of5 resultswithin the time period is included. P athologist Signature Bilirubin, 0.7 <=1.2 mg/dL 06/01/2022 M[facility] Total, P 9:27 AM CDT Specimen Anatomical Collection Method Collection Time Receive d Time (Source) Location / / Volume Laterality Blood (Blood, 06/01/2022 8:34 AM 06/01/20 8:53 Venous) CDT AM CDT Anya Glass APRN, C.N.P. LAB BLOOD ADD-ON Performing Organization Address City/[facility]/ZIP Code Phon e Number [facility] - [address] [place], [place] [address] [facility] [place] [address] Laboratories-[facility] [address] [facility] Albumin (06/01/2022 8:34 AM CDT)Only the most recent of5 resultswithin the time period is included. athologist Signature Albumin, S 3.6 3.5 - 5.0 06/01/2022 DTL g/dL 9:32 AM CDT Specimen Anatomical Collection Method Collection Time Receive d Time (Source) Location / / Volume Laterality Blood (Blood, 06/01/2022 8:34 AM 06/01/20 9:12 Venous) CDT AM CDT Anya Glass APRN, C.N.P. LAB BLOOD ADD-ON Performing Organization Address City/State/ZIP Code Phon e Number [facility] [address] [place] [address] [facility] [place] [address] [facility] [address] [facility] [address] Abdomen Pelvis with IV Contrast (06/01/2022 7:27 AM CDT) Anatomical Region Laterality Modality Abdomen, Pelvis, Abdominal RST LOS, N/A Comp uted Tomography, Computed Abdominal ARZ LOS, Abdominal FLA LOS Dileep ography Specimen (Source) Anatomical Collection Method Collection Time Re ceived Time Location / / Volume Laterality 06/01/2022 7:23 AM CDT Impressions 06/01/2022 8:01 AM CDT Increased tumor encasement of the upper SMV with subsequent progression of narrowing. The exam is otherwise unchanged. Narrative 06/01/2022 8:01 AM CDT EXAM: ??CT ABDOMEN PELVIS WITH IV CONTRAST COMPARISON: ??03/08/2022 FINDINGS: ??Poorly defined infiltrative soft tissue mass arising from the neck and body of the pancreas with stable encasement of the p roximal celiac artery, common hepatic artery, SMA, and splenic artery. There is also encasement of the upper SMV which has gotten slightly worse since the previous exam (series 3 image 150). Exte nsive upper abdominal collaterals. Stable probable hemangioma in segment 7. No findings worrisome for hepatic metastases. Trace free fluid in the deep pelvis is similar to t he previous exam. There are multiple prominent mesenteric lymph nodes however there are no focal p eritoneal nodules. Metallic biliary stent with stable bile duct dilatation and pneumobilia. Atrophic body and tail of the pancreas. Cystogastrostomy tubes ext ending from the stomach to the anterior left pararenal fascia where there is soft tissue thicke shiraz but no fluid collection. ??Left gonadal vein embolization coils. This examination was performed in conjun ction with a CT of the chest, which will be reported separately. Procedure Note Marco Flores M.D. - 06/01/2022Formatti ng of this note might be different from the original. EXAM: CT ABDOMEN PELVIS WITH IV CONTRAST COMPARISON: 03/08/2022 FINDINGS: Poorly defined infiltrative so ft tissue mass arising from the neck and body of the pancreas with stable encasement of the p roximal celiac artery, common hepatic artery, SMA, and splenic artery. There is also encasement of the upper SMV which has gotten slightly worse since the previous exam (series 3 image 150). Exte nsive upper abdominal collaterals. Stable probable hemangioma in segment 7. No findings worrisome for hepatic metastases. Trace free fluid in the deep pelvis is similar to t he previous exam. There are multiple prominent mesenteric lymph nodes however there are no focal p eritoneal nodules. Metallic biliary stent with stable bile duct dilatation and pneumobilia. Atrophic body and tail of the pancreas. Cystogastrostomy tubes ext ending from the stomach to the anterior left pararenal fascia where there is soft tissue thicke shiraz but no fluid collection. Left gonadal vein embolization coils. This examination was performed in conjun ction with a CT of the chest, which will be reported separately. IMPRESSION: Increased tumor encasement of the upper SMV with subsequent progression of narrowing. The exam is otherwise unchanged. Vladislav WONG CT PROCEDURES CT Chest with IV Contrast (06/01/2022 7:27 AM CDT) Anatomical Region Laterality Modality Chest, Thoracic RST LOS, Thoracic ARZ N/A Co mputed Tomography, Computed LOS, Thoracic ARZ LOS, Thoracic FLA Olivier graphy LOS Specimen (Source) Anatomical Collection Method Collection Time Re ceived Time Location / / Volume Laterality 06/01/2022 7:33 AM CDT Impressions 06/01/2022 7:51 AM CDT Stable examination. Multiple noncalcified pulmonary nodules are stable and remain concerning for metastatic disease. Narrative 06/01/2022 7:51 AM CDT EXAM: CT CHEST WITH IV CONTRAST the study was obtained in association with a CT of the abdomen and pelvis. That study is reported separatel y. COMPARISON: [facility] examinations fro m 03/08/2022, 01/06/2022, and 11/03/2021. FINDINGS: Multiple noncalcified pulmonary and pleu ral nodules are not significantly changed in the interval from 03/08/2022. No new nodules are seen . Bilateral calcified granulomas. Scattere d areas of endobronchial plugging are similar to prior examination. The previously described gr oundglass opacity, especially within the lower lungs, has nearly resolved. Right Port-A-Cath terminates near the SV C/RA junction. Stable subcentimeter mediastinal and hilar lymph nodes. Stable subcentimeter left i nternal mammary lymph node. Midthoracic vertebral body hemangioma. N o significant lymph node enlargement. Procedure Note Trell Bolivar M.D., Ph.D. - 06/01/2022 EXAM: CT CHEST WITH IV CONTRAST the stud y was obtained in association with a CT of the abdomen and pelvis. That study is reported separatel y. COMPARISON: [facility] examinations fro 03/08/2022, 01/06/2022, and 11/03/2021. FINDINGS: Multiple noncalcified pulmonary and pleu ral nodules are not significantly changed in the interval from 03/08/2022. No new nodules are seen . Bilateral calcified granulomas. Scattere d areas of endobronchial plugging are similar to prior examination. The previously described gr oundglass opacity, especially within the lower lungs, has nearly resolved. Right Port-A-Cath terminates near the SV C/RA junction. Stable subcentimeter mediastinal and hilar lymph nodes. Stable subcentimeter left i nternal mammary lymph node. Midthoracic vertebral body hemangioma. N o significant lymph node enlargement. IMPRESSION: Stable examination. Multiple noncalcifie d pulmonary nodules are stable and remain concerning for metastatic disease. Vladislav WONG CT PROCEDURES Carbohydrate Antigen 19-9 (CA 19-9) (05/18/2022 11:18 AM CDT) P athologist Signature Carbohydrate Ag 15 <35 U/mL 05/18/2022 [facility] 19-9, S 4:24 PM CDT Comment: ----ADDITIONAL INFORMATION---- The testing method is an immunoenzymatic assay manufactured by [employer] and performed on the [employer] DxI 800. ? Values obtained with different assay met hods or kits may be different and cannot be used inte rchangeably. ? Test results cannot be interpreted as ab solute evidence for the presence or absence of malignant disease. Specimen Anatomical Collection Method Collection Time Receive d Time (Source) Location / / Volume Laterality Blood (Blood, 05/18/2022 11:18 05/18/2022 3:34 Venous) AM CDT PM CDT Vladislav Zarco M.D. LAB BLOOD ADD-ON Performing Organization Address City/State/ZIP Code Phon e Number [facility] [address] [place], [place] [address] [place] [address] [facility] [address] [place] from Last 3 Months Insurance Payer Benefit Plan / Subscriber ID Effective Phone Address T ype Group Dates PREFERREDONE PREFERREDONE [id number] 2020-Pre [phone] PPO ADMINISTRATIVE ADMINISTRATIVE sent [phone] SERVICES SERVICES [facility] [place] [address] Advance Directives For more information, please contact: [phone] Latest Code Status on File Code Status Date Activated Date Inactivated Comments Full Code 06/01/2022 9:09 PM 06/03/2022 3:57 PM Full Code: Discussed Full Code 10/25/2021 12:41 PM 10/29/2021 1:42 PM Full Code: Discussed Full Code 10/24/2021 3:19 AM 10/24/2021 5:10 PM Full Code: Discussed Full Code 03/19/2021 4:10 AM 03/20/2021 4:59 PM Full Code: Discussed Full Code 12/31/2020 6:03 PM 01/02/2021 1:36 PM Full Code: Discussed Care Teams Blood Typer Relationship Specialty Start Date End Date Elsewhere, Pcp PCP - General Family Medicine 08/12/20
--- OUTSIDE RECORDS SUMMARY | 2022-06-18 15:59 | XMS_ITS | Encounter Summary ---
:1965 Author Organization [facility] Address [address] [place] [address] Care Team Providers Name Role Phone Elsewhere, Pcp Primary Care Provider Unavailable Encounter Details Date Type Department Care Team Description 06/18/2022 Clinical Communication Department of Oncology Rachel Landers in [place] Perdomo [place] [address] [facility] [address] [place] [phone] Social History Tobacco Use Types Packs/Day Years [...] er 01/15/2021 How often do you attend mormon or mosque services? 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 - 06/18/2022 1:53 PM CDT Received a call from patient who is having worsening back pain. Mr. Adam Campbell is a 57 y.o. male with metastatic pancreatic adenocarcinoma with known livermetastasis complicated by several episodes of acute cholangitis, biliary strictures status post stenting and exchange, and pancreatitis following ERCP who is a part of a research study with irinotecan,5- FU and onvansertib since Aug 2021 (last chemo 05/18), unfortunately he was found to have progression, he is now on gemcitabine chemotherapy. At his last visit there was discussion about stenting his portal vein to prevent further complications of occlusion. Mr. Campbell does note at baseline he has chronic back pain, but that the pain medication he takes, mostly treats his abdominal pain that is presumed to be related to his cancer. Was on vacation last week in the [place] and had gotten on a ride that he thinks potentially could have aggravated his back pain, additionally to return home he was on a 4-[address] which also may have worsened it. However when he returned from the trip he was okay and notes he was feeling okay. Evenas of this morning, he was doing okay and then mid-day today he developed excruciating new back painworse than his known chronic back pain. This had him on the floor in tears. He was hoping to use thedilaudid he uses for abdominal pain for his back but the medication was sent to [facility] pharmacy and he had not picked it up and is now in [place]. He notes this type of pain is much worse than the chronic back pain he's had before. He notes this is back pain that comes and goes. Worse with sitting compared to movement. It comes on suddenly. A heating pad has not helped. No numbness or tinglingdown either leg. No issues with bowel or urine. I spoke with Dr. Nicholson who was in agreement thatit's best to have him evaluated to rule our cord compression especially as we do not have dedicated neuroimaging recently. Closest ER to him is [place], [place] ER - I called them and spoke to Dr. Jackson the ER physician. While they do not have MRI operating on the weekends, they do have a CT scanner. Also Dr. Jackson would be able to perform a neurological examination and provide IV pain medication if needed. If there is anything concerning - we can get him transferred over to [place] for further evaluation. I called Mr. Campbell back to discuss this and his will take him to the ER in [place] now. Rachel Landers MD PGY-4 Hematology/Oncology Fellow Physician documented in this encounter Plan of Treatment Upcoming Encounters Date Type Specialty Care Team Description 06/22/2022 Lab Laboratory Medicine Maria Del Rosario Gomez AP RN, C.N.P., M.S. [address] [place] [address] [phone] (Wo rk) 06/22/2022 Infusion Oncology Maria Del Rosario Gomez APRN, Remy.N .P., M.S. [address] [place] [address] [phone] (Wo rk) 06/29/2022 Lab Laboratory Medicine Maria Del Rosario Gomez AP RN, C.N.P., M.S. [address] [place] [address] [phone] (Wo rk) 06/29/2022 Infusion Oncology Maria Del Rosario Gomez APRN, C.N .P., M.S. [address] [place] [address] [phone] (Wo rk) documented as of this encounter Visit Diagnoses Not on filedocumented in this encounter Additional Health Concerns Assessment Noted Time PHQ-9 Depression Total Score: 2 10/01/2021 10:34 AM CS T documented as of this encounter Care Teams Bias Binding Cutter Relationship Specialty Start Date End Date Elsewhere, Pcp PCP - General Family Medicine 08/12/20 documented as of this encounter
--- OUTSIDE RECORDS SUMMARY | 2022-06-18 15:59 | XMS_ITS | Encounter Summary ---
:1965 Author Organization [facility] Address [address] [place] [address] Care Team Providers Name Role Phone Elsewhere, Pcp Primary Care Provider Unavailable Reason for Visit Auth/Cert Specialty Diagnoses / Procedures Referred By Contact Refer red To Contact Diagnoses Malignant Neoplasm Of Pancreas Body (HCC) Abdominal Pain Procedures ETU Referral ID Status Reason Start Date Expiration Date Visits Requ ested Visits Authorized [id number] 1 1 Encounter Details Date Type Department Care Team Description 06/03/2022 Anesthesia Event Division of Efren Triplett [facility] in [place], DIE REPAIRER TRIMMER DIES, [place], [place] DNA [address] [facility] [address] [place] [address] [place], [place] [phone] Anesthesia Record Procedure Summary Procedure Name Responsible Anesthesia Start Anesthesia Stop Time Anesthesiologist Time EGD Efren Triplett, DIE REPAIRER TRIMMER DIES, 06/03/22 0749 0847 (ESOPHAGEALGASTRODU CUTTER GRIND TOOL TECHNICIAN, DNA ODENOSCOPY) Events Date Time Event Comment 06/03/2022 0749 An Start Machine/Equipmen t Checked Infection Precautions Foll owed Procedure/Site Verified NPO Sta tus Verified Supine Standard ASA Mon itors Applied 0756 Turnover to Proceduralist 0758 Proc Start 0840 Proc Fin 0844 Turnover to ANE Staff 0844 an stop data 0847 An End I completed my h andoff to the receiving staff during i ch we 1. Identified the patient 2. Ident ified the responsible provider 3. Revi ewed the pertinent medical history 4. Discu ssed the surgical course 5. Reviewed intra-o p anesthesia management and issues during an esthesia 6. Set expectations for post-procedure period 7. Allowed opportun ity for questions and acknowledgement of understanding. Name Total fentanyl injection 50 mcg/mL 50 mcg lidocaine 2% (mg) injection 100 mg propofol 10 mg/mL injection 40 mg propofol 10 mg/mL infusion 439.25 mg glycopyrrolate 0.2 mg/mL injection 0.1 mg Lactated Ringers Free Drip 700 mL Agents No agents on file. Blood No blood administrations on file. Lines, Drains, and Airways Type Details Placement Removal Implanted Port Single 11/05/20; 1225; Permanent 11/05/20 1225 by Fanny, Lumen (tunneled, implanted); Yes; Raymond Santiago RRiazNRiaz Yes; Yes; Yes; Alcohol, Chlorhexidine (Preferred); Yes; Cap, Gloves, Gown, Large drape, Mask (Clinician), Mask (All others in room); N/A; Non-valved; Right; Chest; Power injectable; Securement dressing, Sutured; Dr. Wolf Puncture 08/23/21; 1657; No; Abdomen; 08/23/211657 by Right; Multiple puncture Yasmeen Triplett, sites from liver biopsy M.S.N., R.N. documented in this encounter Social History Tobacco [...] er 01/15/2021 How often do you attend caodaism or mosque services? 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 documented as of this encounter OR Notes Anesthesia Postprocedure Evaluation - Efren Triplett APRN, CRNA, DNAP - 06/03/2022 8:47 AM CDT Patient: Adam Campbell Procedure Summary Date: 06/03/22 Room / Location: Division of Gastroenterology in [place], [place] Anesthesia Start: 748 Anesthesia Stop: 846 Procedure: EGD (ESOPHAGEALGASTRODUODENOSCOPY) Diagnosis: Scheduled Providers: Efren Triplett APRN, CRNA, DNAP Responsible Provider: Efren Triplett APRN, CRNA, DNAP Anesthesia Type: MAC ASA Status: 3 Anesthesia Type: MAC Last vitals Vitals Value Taken Time BP Temp Pulse Resp SpO2 Please reference Vitals flowsheet for most recent vital signs. Anesthesia Post Evaluation Patient Disposition: general care unit Cardiovascular status: hemodynamics (HR & BP) acceptable Respiratory status: patent airway with spontaneous effort Temperature: normothermic Oxygen requirements: room air Level of consciousness: awake Pain score: pain adequately controlled and/or at baseline Post Op nausea/vomiting: none Hydration status: euvolemic Anesthesia Preprocedure Evaluation - Adam Barros M.D. - 06/03/2022 7:56 AM CDT Preprocedure Anesthesia & H&P Assessment Procedure Summary Anesthesia Start Date/Time: 06/03/2249 Scheduled providers: Efren Triplett APRN, CRNA, DNAP Procedure: EGD (ESOPHAGEALGASTRODUODENOSCOPY) Location: Division of Gastroenterology in [place], [place] Pertinent components of the patient's history including current problem list, medical history, surgical history, family history, social history, medications and allergies were reviewed. Present illnessand pre-op diagnosis were confirmed. The planned surgery / procedure was verified with the patient /legal guardian. The patient's general health condition remains unchanged RELEVANT COMORBID CONDITIONS GENETICS (+) Dehydration (+) Hypoalbuminemia GI (+) Gastroesophageal Reflux Disease NOS HEME (+) Anemia ONC (+) Malignant Neoplasm Of Pancreas (HCC) (+) Secondary Malignant Neoplasm Liver (HCC) Other (+) Immunodeficiency Due To Drugs (HCC) (+) Malnutrition Severe Protein-Calorie (HCC) OBJECTIVE PHYSICAL EXAMINATION Airway (HEENT) Mallampati: III TM Distance: >3 FB Neck ROM: Full Facies (pediatrics): normal Cardiovascular Rhythm: Regular Rate: Normal Cardiovascular Assessment: cardiovascular normal Pulmonary Pulmonary Assessment: Clear General / Constitutional Constitutional Assessment: Normal Neurological Neurologic Assessment:??alert ASSESSMENT / PLAN ANESTHESIA PLAN ASA: 3 Anesthesia Plan: MAC Patient seen and allergies reviewed; anesthesia plan and risks discussed directly with patient / legal guardian, or through an handyman; patient evaluated and approved for anesthesia / sedation The use of blood products not discussed Approval to Proceed: approved for anesthesia documented in this encounter Plan of Treatment Upcoming Encounters Date Type Specialty Care Team Description 06/22/2022 Lab Laboratory Medicine Maria Del Rosario Gomez AP RN, C.N.P., M.S. [address] [place] [address] [phone] (Mj godoy) 06/22/2022 Infusion Oncology Maria Del Rosario Gomez APRN, C.N .P., M.S. [address] [place] [address] [phone] (Mj godoy) 06/29/2022 Lab Laboratory Medicine Maria Del Rosario Gomez AP RN, C.N.P., M.S. [address] [place] [address] [phone] (Mj godoy) 06/29/2022 Infusion Oncology Maria Del Rosario Gomez APRN C.N .P., M.S. [address] [place] [address] [phone] (Mj godoy) documented as of this encounter Visit Diagnoses Not on filedocumented in this encounter Administered Medications Inactive Administered Medications - up to 3 most recent administrations Medication Order MAR Action Action Date Dose Rate Site fentaNYL injection (SUBLIMAZE) Given 06/03/2022 7:58 AM CDT 25 mcg intravenous, As needed, Starting on Mon06/03/22 at 0756, Anesthesia Intra-op Given 06/03/2022 7:56 AM CDT 25 mcg glycopyrrolate injection (ROBINUL) Given 06/03/2022 7:53 AM CDT 0.1 mg intravenous, As needed, Starting on Mon06/03/22 at 0753, Anesthesia Intra-op lactated ringers New Bag 06/03/2022 7:52 AM CDT intravenous, Continuous Infusion: Per Instructions PRN, Starting on Mon06/03/22 at 0752, Anesthesia Intra-op lidocaine (PF) (cardiac) injection Given 06/03/2022 7:52 AM CDT 100 mg intravenous, As needed, Starting on Mon06/03/22 at 0752, Anesthesia Intra-op propofol 10 mg/mL infusion New Bag 06/03/2022 7:53 150 mcg/kg/min 61.29 mL/hr (DIPRIVAN) AM CDT intravenous, Continuous Infusion: Per Instructions PRN, Starting on Mon06/03/22 at 0753, Anesthesia Intra-op propofoL injection (DIPRIVAN) Given 06/03/2022 7:55 AM CDT 40 mg intravenous, As needed, Starting on Mon06/03/22 at 0755, Anesthesia Intra-op documented in this encounter Additional Health Concerns Assessment Noted Time PHQ-9 Depression Total Score: 2 10/01/2021 10:34 AM CS T documented as of this encounter Care Teams Outreach Team Member Relationship Specialty Start Date End Date Elsewhere, Pcp PCP - General Family Medicine 08/12/20 documented as of this encounter
--- OUTSIDE RECORDS SUMMARY | 2022-06-18 15:59 | XMS_ITS | Encounter Summary ---
:1965 Author Organization [facility] Address [address] [place] [id number] Care Team Providers Name Role Phone Elsewhere, Pcp Primary Care Provider Unavailable Reason for Visit Episode Based Medications (Routine) - Closed Specialty Diagnoses / Procedures Referred By Contact Refer red To Contact Diagnoses Malignant Neoplasm Of Pancreas (HCC) Secondary Malignant Neoplasm Liver (HCC) Medication Therapy Intermediate Not Anticoagulant Jesse Perkins, Geetat Onc Rogo Procedures [place] ONDANSETRON HCL INJECTION [place] LEUCOVORIN CALCIUM INJECTION [place] INJ IRINOTECAN LIPOSOME 1 MG [place] FLUOROURACIL INJECTION P.A.-C., M.S. [address] [place] [address] [address] [place] [phone] Referral ID Status Reason Start Date Expiration Date Visits Requ ested Visits Authorized [id number] Closed 08/27/2021 08/27/2022 36 36 Encounter Details Date Type Department Care Team Description 06/01/2022 Lab Department of Laboratory Jaden Glass, Secondary Malignant Neoplasm Liver (HCC) (Primary Dx); Medicine and Pathology, MAINFRAME ARCHITECT, C. N.P. Medication Therapy Intermediate Not Anticoa gulant; Michele Tanmay, in [address] [place] [address] Malignant Neoplasm Of Pancreas (HCC); [place], [place] Bacteremia [address] [place] [phone] [place] [address] [phone] Social History Tobacco Use Types Packs/Day Years [...] er 01/15/2021 How often do you attend shinto or restoration services? 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 [address] [place] [phone] (Mj godoy) 06/22/2022 Infusion Oncology Maria Del Rosario Gomez APRN, C.N .P., M.S. [address] [place] [phone] (Mj godoy) 06/29/2022 Lab Laboratory Medicine Maria Del Rosario Gomez AP RN, C.N.P., M.S. [address] [place] [phone] (Mj godoy) 06/29/2022 Infusion Oncology Maria Del Rosario Gomez APRN, C.N .P., M.S. [address] [place] [address] [phone] (Mj godoy) documented as of this encounter Procedures Procedure Name Priority Date/Time Associated Comments Diagnosis [facility] RESEARCH ORDER, B Routine 06/01/2022 8:36 Malignant Neopl asm Results for this AM CDT Of Pancreas (HCC) procedure are in the results section. CBC WITH DIFFERENTIAL, B Routine 06/01/2022 8:34 Secondary Results for this AM CDT Malignant Neoplasm procedure are in Liver (HCC) the results Medication Therapy section. Intermediate Not Anticoagulant Malignant Neoplasm Of Pancreas (HCC) ALANINE AMINOTRANSFERASE Routine 06/01/2022 8:34 Secondary Results for this (ALT), S/P AM CDT Malignant Neoplasm procedure are in Liver (HCC) the results Medication Therapy section. Intermediate Not Anticoagulant Malignant Neoplasm Of Pancreas (HCC) ASPARTATE Routine 06/01/2022 8:34 Secondary Results for this AMINOTRANSFERASE (AST), AM CDT Malignant Neoplas m procedure are in S/P Liver (HCC) the results Medication Therapy section. Intermediate Not Anticoagulant Malignant Neoplasm Of Pancreas (HCC) PHOSPHORUS (INORGANIC), Routine 06/01/2022 8:34 Secondary R esults for this S AM CDT Malignant Neoplasm procedure are in Liver (HCC) the results Medication Therapy section. Intermediate Not Anticoagulant Malignant Neoplasm Of Pancreas (HCC) ALKALINE PHOSPHATASE, Routine 06/01/2022 8:34 Secondary Res ults for this S/P AM CDT Malignant Neoplasm procedure are in Liver (HCC) the results Medication Therapy section. Activities Assistant Not Anticoagulant Malignant Neoplasm Of Pancreas (HCC) MAGNESIUM, S Routine 06/01/2022 8:34 Secondary Results for this AM CDT Malignant Neoplasm procedure are in Liver (HCC) the results Medication Therapy section. Activities Assistant Not Anticoagulant Malignant Neoplasm Of Pancreas (HCC) BILIRUBIN, TOT, S/P Routine 06/01/2022 8:34 Secondary Resul ts for this AM CDT Malignant Neoplasm procedure are in Liver (HCC) the results Medication Therapy section. Activities Assistant Not Anticoagulant Malignant Neoplasm Of Pancreas (HCC) ALBUMIN, S/P Routine 06/01/2022 8:34 Secondary Results for this AM CDT Malignant Neoplasm procedure are in Liver (HCC) the results Medication Therapy section. Intermediate Not Anticoagulant Malignant Neoplasm Of Pancreas (HCC) BASIC METABOLIC PANEL, Routine 06/01/2022 8:34 Secondary Re sults for this S/P AM CDT Malignant Neoplasm procedure are in Liver (HCC) the results Medication Therapy section. Activities Assistant Not Anticoagulant Malignant Neoplasm Of Pancreas (HCC) documented in this encounter Results Miscellaneous Research, B (06/01/2022 8:36 AM CDT) P athologist Signature Number of 3 06/01/2022 S Specimens 8:36 AM CDT Specimen Anatomical Collection Method Collection Time Receive d Time (Source) Location / / Volume Laterality Varies (Blood, 06/01/2022 8:36 AM 022 8:36 Venous) CDT AM CDT Vladislav Zarco M.D. LAB RESEARCH NO RESULT VERENICE MCFADDEN Performing Organization Address City/[facility] Code Phon e Number [facility] - [address] [place], [place] [address] [facility] [place], [place] [address] [place] [address] ALT (Alanine Aminotransferase) (06/01/2022 8:34 AM CDT) [facility] Method Time Signature Alanine 51 7 - 55 06/01/2022 DTL Aminotransferase U/L 9:32 AM CDT (ALT), S Specimen Anatomical Collection Method Collection Time Receive d Time (Source) Location / / Volume Laterality Blood (Blood, 06/01/2022 8:34 AM 06/01/20 9:12 Venous) CDT AM CDT Anya Glass APRN, C.N.P. LAB BLOOD ADD-ON Performing Organization Address City/[facility] Code Phon e Number [facility] - [address] [place], [place] [address] [place] [address] [place] [address] [address] [facility] AST (Aspartate Aminotransferase) (06/01/2022 8:34 AM CDT) [facility] Method Time Signature Aspartate 19 8 - 48 06/01/2022 METH Aminotransferase U/L 9:27 AM CDT (AST), P Specimen Anatomical Collection Method Collection Time Receive d Time (Source) Location / / Volume Laterality Blood (Blood, 06/01/2022 8:34 AM 06/01/20 22 8:53 Venous) CDT AM CDT Anya Glass APRN, C.N.P. LAB BLOOD ADD-ON Performing Organization Address City/[facility]/ZIP Code Phon e Number [facility] - [address] [facility] [place] [address] [place] [address] [place] [address] [facility] 200 [facility] Bilirubin, Total (06/01/2022 8:34 AM CDT) P athologist Signature Bilirubin, 0.7 <=1.2 mg/dL 06/01/2022 METH Total, P 9:27 AM CDT Specimen Anatomical Collection Method Collection Time Receive d Time (Source) Location / / Volume Laterality Blood (Blood, 06/01/2022 8:34 AM 06/01/20 8:53 Venous) CDT AM CDT Anya Glass APRN, C.N.P. LAB BLOOD ADD-ON Performing Organization Address City/[facility] Code Phon e Number [facility] - [address] (ABNORMAL) Alkaline Phosphatase (06/01/2022 8:34 AM CDT) athologist Signature Alkaline 289 (H) 40 - 129 06/01/2022 DTL Phosphatase, S U/L 9:32 AM CDT Specimen Anatomical Collection Method Collection Time Receive d Time (Source) Location / / Volume Laterality Blood (Blood, 06/01/2022 8:34 AM 06/01/20 22 9:12 Venous) CDT AM CDT Anya Glass APRN, C.N.P. LAB BLOOD ADD-ON Performing Organization Address City/State/[facility] Code Phon e Number [facility] - 200 [place], [place] [address] [facility] [address] Magnesium (06/01/2022 8:34 AM CDT) P athologist Signature Magnesium, S 1.9 1.7 - 2.3 06/01/2022 DTL mg/dL 9:32 AM CDT Specimen Anatomical Collection Method Collection Time Receive d Time (Source) Location / / Volume Laterality Blood (Blood, 06/01/2022 8:34 AM 06/01/20 22 9:12 Venous) CDT AM CDT Anya Glass APRN, Remy.N.P. LAB BLOOD ADD-ON Performing Organization Address City/[facility] Phon e Number [facility] - [address] Phosphorus Inorganic (06/01/2022 8:34 AM CDT) athologist Signature Phosphorus 3.6 2.5 - 4.5 06/01/2022 DTL (Inorganic), S mg/dL 9:32 AM CDT Specimen Anatomical Collection Method Collection Time Receive d Time (Source) Location / / Volume Laterality Blood (Blood, 06/01/2022 8:34 AM 06/01/20 9:12 Venous) CDT AM CDT Anya Glass APRN, Remy.N.P. LAB BLOOD ADD-ON Performing Organization Address [facility] Phon e Number [facility] - [phone] [place] [address] Albumin (06/01/2022 8:34 AM CDT) athologist Signature Albumin, S 3.6 3.5 - 5.0 06/01/2022 DTL g/dL 9:32 AM CDT Specimen Anatomical Collection Method Collection Time Receive d Time (Source) Location / / Volume Laterality Blood (Blood, 06/01/2022 8:34 AM 06/01/20 9:12 Venous) CDT AM CDT Anya Glass APRN, C.N.P. LAB BLOOD ADD-ON Performing Organization Address City/[facility]/ZIP Code Phon e Number [facility] - [address] (ABNORMAL) Basic Metabolic Panel (06/01/2022 8:34 AM CDT) athologist Signature Potassium, P 3.4 (L) 3.6 - 5.2 06/01/2022 METH mmol/L 9:27 AM CDT Sodium, P 139 135 - 145 06/01/2022 METH mmol/L 9:27 AM CDT Chloride, P 104 98 - 107 06/01/2022 METH mmol/L 9:27 AM CDT Bicarbonate, P 24 22 - 29 06/01/2022 M[facility] mmol/L 9:27 AM CDT Anion Gap, P 11 7 - 15 06/01/2022 M[facility] 9:27 AM CDT BUN (Blood Urea 11 8 - 24 06/01/2022 [facility] Nitrogen), P mg/dL 9:27 AM CDT Creatinine 0.77 0.74 - 06/01/2022 M[facility] 1.35 mg/dL 9:27 AM CDT Estimated GFR >90 >=60 06/01/2022 M[facility] (eGFR) mL/min/BSA 9:27 AM CDT Comment: Estimated GFR calculated using the 2020 CKD_EPI creatinine equation. Calcium, Total, P 8.8 8.6 - 10.0 mg/dL 06/01/2022 9:27 AM CDT METH Glucose, P 102 70 - 140 mg/dL 06/01/2022 9:27 AM CDT M ETH Specimen Anatomical Collection Method Collection Time Receive d Time (Source) Location / / Volume Laterality Blood (Blood, 06/01/2022 8:34 AM 06/01/20 8:53 Venous) CDT AM CDT Anya Glass APRN C.N.P. LAB BLOOD ADD-ON Performing Organization Address City/State/ZIP Code Phon e Number [facility] - 200 [place], [place] [address] [place] [address] [facility] 200 [facility] (ABNORMAL) CBC with Differential, Blood (06/01/2022 8:34 AM CDT) [facility] Method Time Signature Hemoglobin 10.3 (L) 13.2 - 06/01/2022 DTL 16.6 g/dL 9:41 AM CDT Hematocrit 32.0 (L) 38.3 - 06/01/2022 DTL 48.6 % 9:41 AM CDT Erythrocytes 3.75 (L) 4.35 - 06/01/2022 DTL 5.65 9:41 AM CDT x10(12)/L MCV 85.3 78.2 - 06/01/2022 DTL 97.9 fL 9:41 AM CDT RBC Distrib Width 18.4 (H) 11.8 - 06/01/2022 DTL 14.5 % 9:41 AM CDT Platelet Count 165 135 - 317 06/01/2022 DTL x10(9)/L 9:41 AM CDT Leukocytes 4.2 3.4 - 9.6 06/01/2022 DTL x10(9)/L 9:41 AM CDT Neutrophils 3.05 1.56 - 06/01/2022 DTL 6.45 9:41 AM CDT x10(9)/L Lymphocytes 0.46 (L) 0.95 - 06/01/2022 DTL 3.07 9:41 AM CDT x10(9)/L Monocytes 0.45 0.26 - 06/01/2022 DTL 0.81 9:41 AM CDT x10(9)/L Eosinophils 0.20 0.03 - 06/01/2022 DTL 0.48 9:41 AM CDT x10(9)/L Basophils <0.03 0.01 - 06/01/2022 DTL 0.08 9:41 AM CDT x10(9)/L Specimen Anatomical Collection Method Collection Time Receive d Time (Source) Location / / Volume Laterality Blood (Blood, 06/01/2022 8:34 AM 06/01/20 9:00 Venous) CDT AM CDT Anya Glass APRN, C.N.P. LAB BLOOD ADD-ON Performing Organization Address City/State/ZIP Code Phon e Number [facility] - [address] [place], [place] [address] [place] [address] [facility] [address] documented in this encounter Visit Diagnoses Diagnosis Secondary Malignant Neoplasm Liver (HCC) - Primary Medication Therapy Activities Assistant Not Anticoa gulant Malignant Neoplasm Of Pancreas (HCC) Bacteremia documented in this encounter Administered Medications Inactive Administered Medications - up to 3 most recent administrations Medication Order MAR Action Action Date Dose Rate Site heparin flush 500 Units Given 06/01/2022 8:30 AM CDT 500 Units 500 Units, intra-catheter, As needed, line care, Starting on Mon06/01/22 at 0811, When no infusion to maintain patency: For IVAD accessed, not in use, and/or prior to hospital discharge, flush every 7 days after 0.9% preservative-free NaCL flush. For IVAD NOT accessed or used, flush every 4 weeks after 0.9% preservative-free NaCL flush. sodium chloride 0.9 % injection 20 mL Given 06/01/2022 8:30 AM CDT 20 mL 20 mL, intra-catheter, As needed, line care, Starting on Mon06/01/22 at 0811, When IVAD Accessed and in Use: Flush post blood transfusion or post blood sampling. documented in this encounter Additional Health Concerns Assessment Noted Time PHQ-9 Depression Total Score: 2 10/01/2021 10:34 AM CS T documented as of this encounter Care Teams Property Condition Assessor Relationship Specialty Start Date End Date Elsewhere, Pcp PCP - General Family Medicine 08/12/20 documented as of this encounter
--- OUTSIDE RECORDS SUMMARY | 2022-06-18 15:59 | XMS_ITS | Encounter Summary ---
:1965 Author Organization [facility] Address [address] [place] [address] Care Team Providers Name Role Phone Elsewhere, Pcp Primary Care Provider Unavailable Encounter Details Date Type Department Care Team Description 06/03/2022 Ancillary Procedure Department of Gastroenterology Social History Tobacco Use Types Packs/Day Years [...] er 01/15/2021 How often do you attend baptist or restoration services? Never 01/15/2021 Do you belong to any clubs or organizations such as baptist N o 01/15/2021 groups, unions, fraternal or [...] place to sleep or slept in a snf (including now)? Education Answer Date Recorded What is the highest level of school you have completed or 12 th grade 01/15/2021 the highest degree you have received? 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 [address] [place] [phone] (Wo rk) 06/22/2022 Infusion Oncology Maria Del Rosario Gomez APRN, C.N .P., M.S. [address] [place] [phone] (Wo rk) 06/29/2022 Lab Laboratory Medicine Maria Del Rosario Gomez AP RN, C.N.P., M.S. [address] [place] [phone] (Wo rk) 06/29/2022 Infusion Oncology Maria Del Rosario Gomez APRN, Remy.N .P., M.S. [address] [place] [phone] (Wo rk) documented as of this encounter Procedures Procedure Name Priority Date/Time Associated Comments Diagnosis GASTROENTEROLOGY IMAGE Routine 06/03/2022 7:40 Re sults for this EXAM AM CDT procedure are i n the results section. documented in this encounter Results ERCP-Gastroenterology Image Exam (06/03/2022 7:40 AM CDT) [...] RAD IMAGING PROCEDUR ES Performing Organization Address City/State/ZIP Code Phon e Number [facility] IIMS NA documented in this encounter Visit Diagnoses Not on filedocumented in this encounter Additional Health Concerns Assessment Noted Time PHQ-9 Depression Total Score: 2 10/01/2021 10:34 AM CS T documented as of this encounter Care Teams Handling Tech Relationship Specialty Start Date End Date Elsewhere, Pcp PCP - General Family Medicine 08/12/20 documented as of this encounter
--- OUTSIDE RECORDS SUMMARY | 2022-06-18 16:00 | XMS_ITS | Encounter Summary ---
:1965 Author Organization [facility] Address [address] [place] [address] Care Team Providers Name Role Phone Elsewhere, Pcp Primary Care Provider Unavailable Reason for Visit Reason Comments Pre-visit Intake Encounter Details Date Type Department Care Team Description 05/13/2022 Clinical Communication Visit Review in Pr e-visit Intake [place], [place] [address] [place], [place] [id number] Social History Tobacco Use Types Packs/Day Years [...] How often do you attend yazidi or catholic services? Never 01/15/2021 Do you belong to [...] place to sleep or slept in a long-term (including now)? Education Answer Date Recorded What is the highest level of school you have completed or 12 th grade 01/15/2021 the highest degree you have received? 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 [address] [place] [phone] (Mj godoy) 06/22/2022 [facility] .[facility] [address] [place] [phone] (Mj godoy) 06/29/2022 [facility], C.N.P., M.S. [address] [place] [phone] (Mj godoy) 06/29/2022 [facility] C.N .P., M.S. [address] [place] [address] [phone] (Mj godoy) documented as of this encounter Visit Diagnoses Not on filedocumented in this encounter Additional Health Concerns Assessment Noted Time PHQ-9 Depression Total Score: 2 10/01/2021 10:34 AM CS T documented as of this encounter Care Teams Job Training Specialist Relationship Specialty Start Date End Date Elsewhere, Pcp PCP - General Family Medicine 08/12/20 documented as of this encounter
--- OUTSIDE RECORDS SUMMARY | 2022-06-18 16:00 | XMS_ITS | Encounter Summary ---
:1965 Author Organization [facility] Address [address] [place] [address] Care Team Providers Name Role Phone Elsewhere, Pcp Primary Care Provider Unavailable Reason for Visit Episode Based Medications (Routine) - Closed Specialty Diagnoses / Procedures Referred By Contact Refer red To Contact Diagnoses Malignant Neoplasm Of Pancreas (HCC) Secondary Malignant Neoplasm Liver (HCC) Medication Therapy Care Home Not Anticoagulant Jesse Perkins R[facility] On[facility] Rogo Procedures CA ONDANSETRON HCL INJECTION CA LEUCOVORIN CALCIUM INJECTION CA INJ IRINOTECAN LIPOSOME 1 MG CA FLUOROURACIL INJECTION P.A.-C., M.S. 200 [facility] [address] [place] [phone] Referral ID Status Reason Start Date Expiration Date Visits Requ ested Visits Authorized [id number] Closed 08/27/2021 08/27/2022 36 36 Encounter Details Date Type Department Care Team Description 06/01/2022 Office Visit Department of Oncology Wes Mantilla Se Malignant Neoplasm Liver (HCC); in Randall Perdomo M.D. Medication Therapy Media Reporter Not Anticoa gulant; [place] [address] [facility] Malignant Neoplasm Of Pancreas (HCC) [address] [place] [id number] Social History Tobacco Use Types Packs/Day Years [...] How often do you attend jew or islam services? Never 01/15/2021 Do you belong to [...] place to sleep or slept in a fdc (including now)? Education Answer Date Recorded What is the highest level of school you have completed or 12 th grade 01/15/2021 the highest degree you have received? 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 - 06/01/2022 1:20 PM CDT SUBJECTIVE Assessment of cancer status PRIMARY CARE PHYSICIAN ELSEWHERE, PCP LOCAL ONCOLOGIST No care molybdenum steamer operator to display PRIMARY [place] ONCOLOGIST Deborah Murray M.B.B.S. Maria Del Rosario Gomez APRN, C.N.P., M.S. CHIEF COMPLAINT / REASON FOR VISIT Adam Campbell is a 57 y.o. male who presents for evaluation of pancreatic cancer HISTORY OF PRESENT ILLNESS Oncology History Oncology [...] (01/25/2021 - 03/02/2021) Site: Pancreas Technique: 3D PARI MUTUEL TICKET SELLER Goal: Curative Planned Treatment Start Date: 01/25/2021 [...] in Patients with Metastatic Pancreatic Ductal Adenocarcinoma ([id number]) Treatment Protocol: [facility] CRDF-001 ( Onvansertib (Days 1-10) / Fluorouracil / Leucovorin / Nanoliposomal Irinotecan ) Mr. Campbell is seen in follow-up of his ongoing therapy for his pancreatic cancer. Since last seen has had progressive problems with abdominal pain, nausea, vomiting, and increased bowel gas. He notes over last 24 hours the pain has become quite severe rating it at 9/10. His pain is not responding to his current medications. He notes that the pain escalates to 10/10 with eating. Within 5 minutes of eating he has severe pain in his attempted to limit how much he eats or drinks at any one time. The pain radiates from his left flank around into the epigastrium. He noted with the recent emesis that there was a Pepcid tablet in the emesis that he would taken 12 hours previously that did not appear to have dissolved at all. He is had no associated hematemesis. He also feels that the Creon is nolonger providing benefit to him as it had in the past controlling his bowel gas and other symptoms. Mr. Campbell notes no dysuria. He feels that his current pain is different from the pain that she is experienced with the passage of a kidney stone. He notes no recent fevers. The following portions of the patient's history were reviewed and updated as appropriate: allergies,current medications, medical history, surgical history, and problem list. REVIEW OF SYSTEMS OBJECTIVE BP 106/70 (BP Location: Left arm, Patient Position: Sitting, Cuff Size: Regular) Pulse 68 Temp 36 ??C (Tympanic) Ht 176.8 cm Wt 72.2 kg SpO2 99% BMI 23.10 kg/m?? No data recorded PHYSICAL EXAM ECOG Score: 2 - symptomatic, <50% confined to bed General: Alert and oriented, in acute distress. Able to ambulate on and off the exam table with somedifficulty. Lymph: No palpable cervical, supraclavicular, axillary, umbilical, or inguinal lymphadenopathy. Heart: Regular rate and rhythm. Lungs: Clear to auscultation bilaterally. Abdomen: Non-distended, decreased bowel tones. Tender to palpation throughout upper abdomen, particularly on the left side. Left flank tenderness. Extremities: Without edema. LABORATORY DATA Lab data reviewed. RADIOLOGICAL DATA Radiology data reviewed. ASSESSMENT / PLAN #1 Secondary Malignant Neoplasm Liver (HCC) #2 Medication Therapy Care Home Not Anticoagulant #3 Malignant Neoplasm Of Pancreas (HCC) Mr. Campbell is seen today earlier than his scheduled appointment related to severe abdominal pain. Hispain is progressively escalated over last week and associated with additional GI symptoms. His CT scan does not show any evidence for nephrolithiasis to explain the pain. However, the CT scan does showsome progressive tumor encasement of vascular structures including the SMV. While the CT scan does not clearly show edema in the small intestine, his symptoms are worrisome for potential vascular insufficiency causing his current symptoms. Given the severity of the symptoms I will send him to the [facility] for further evaluation. PATIENT EDUCATION Ready to learn, no apparent learning barriers were identified; learning preferences include listening. Explained diagnosis and treatment plan; patient expressed understanding of the content. ADMINISTRATIVE BILLING I personally spent 40 minutes in care of the patient today. Time includes both non face to face and face to face patient care. documented in this encounter Plan of Treatment Upcoming Encounters Date Type Specialty Care Team Description 06/22/2022 Lab Laboratory Medicine Maria Del Rosario Gomez AP RN, C.N.P., M.S. [address] [place] [phone] (Wo rk) 06/22/2022 Infusion Oncology Maria Del Rosario Gomez APRN, C.N .P., M.S. [address] [place] [address] [phone] (Wo rk) 06/29/2022 Lab Laboratory Medicine Maria Del Rosario Gomez AP RN, C.N.P., M.S. [address] [place] [address] [phone] (Wo rk) 06/29/2022 Infusion Oncology Maria Del Rosario Gomez APRN, C.N .P., M.S. [address] [place] [phone] (Wo rk) documented as of this encounter Visit Diagnoses Diagnosis Secondary Malignant Neoplasm Liver (HCC) Medication Therapy Care Home Not Anticoa gulant Malignant Neoplasm Of Pancreas (HCC) documented in this encounter Additional Health Concerns Infection Onset Date Last Indicated Resolved Time COVID19 Pending 06/01/2022 06/01/2022 06/02/2022 1:36 AM CDT Assessment Noted Time PHQ-9 Depression Total Score: 2 10/01/2021 10:34 AM CS T documented as of this encounter Care Teams Dry Wall Applicator Relationship Specialty Start Date End Date Elsewhere, Pcp PCP - General Family Medicine 08/12/20 documented as of this encounter
--- OUTSIDE RECORDS SUMMARY | 2022-06-18 16:00 | XMS_ITS | Encounter Summary ---
:1965 Author Organization [facility] Address [address] [place] [address] Care Team Providers Name Role Phone Elsewhere, Pcp Primary Care Provider Unavailable Reason for Visit Reason Comments Med Refill LORazepam Encounter Details Date Type Department Care Team Description 05/14/2022 Refill Department of Oncology Anya Glass, Med Refill (LORazepam ) in [facility] elke GUERO, C.N.P. [address] [facility] [address] [place] [phone] (Wo rk) Social History Tobacco Use Types [...] er 01/15/2021 How often do you attend anabaptist or anabaptism services? Never 01/15/2021 Do you belong to any clubs or organizations such as anabaptist N o 01/15/2021 groups, unions, fraternal or [...] place to sleep or slept in a fci (including now)? Education Answer Date Recorded What is the highest level of school you have completed or 12 th grade 01/15/2021 the highest degree you have received? 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 - 05/17/2022 7:33 AM CDT Surescripts created refill request. documented in this encounter Plan of Treatment Upcoming Encounters Date Type Specialty Care Team Description 06/22/2022 Lab Laboratory Medicine Maria Del Rosario Gomez AP RN, C.N.P., M.S. [address] [place] [phone] (Mj godoy) 06/22/2022 Infusion Oncology Maria Del Rosario Gomez APRN, C.N .P., M.S. [address] [place] [phone] (Mj godoy) 06/29/2022 Lab Laboratory Medicine Maria Del Rosario Gomez AP RN, C.N.P., M.S. [address] [place] [phone] (Mj godoy) 06/29/2022 Infusion Oncology Maria Del Rosario Gomez APRN, C.N .P., M.S. [address] [place] [address] [phone] (Mj godoy) documented as of this encounter Visit Diagnoses Not on filedocumented in this encounter Additional Health Concerns Assessment Noted Time PHQ-9 Depression Total Score: 2 10/01/2021 10:34 AM CS T documented as of this encounter Care Teams Environmental Compliance Engineer Relationship Specialty Start Date End Date Elsewhere, Pcp PCP - General Family Medicine 08/12/20 documented as of this encounter
--- OUTSIDE RECORDS SUMMARY | 2022-06-18 16:00 | XMS_ITS | Encounter Summary ---
:1965 Author Organization [facility] Address [address] [place] [address] Care Team Providers Name Role Phone Elsewhere, Pcp Primary Care Provider Unavailable Encounter Details Date Type Department Care Team Description 05/30/2022 Orders Only Department of Oncology in [facility]as Kingston [place], [place] [address] [facility] [address] [place] [phone] Social History Tobacco Use Types Packs/Day Years [...] How often do you attend buddhism or mosque services? Never 01/15/2021 Do you [...] place to sleep or slept in a detention (including now)? Education Answer Date Recorded What is the highest level of school you have completed or 12 th grade 01/15/2021 the highest degree you have received? 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 [address] [place] [phone] (Wo rk) 06/22/2022 [facility] C.N .P., M.S. [address] [place] [address] [phone] (Wo rk) 06/29/2022 Lab [facility], C.N.P., M.S. [address] [place] [address] [phone] (Wo rk) 06/29/2022 [facility] C.N .P., M.S. [address] [place] [address] [phone] (Wo rk) documented as of this encounter Visit Diagnoses Not on filedocumented in this encounter Additional Health Concerns Infection Onset Date Last Indicated Resolved Time COVID19 Pending 06/01/2022 06/01/2022 06/02/2022 1:36 AM CDT Assessment Noted Time PHQ-9 Depression Total Score: 2 10/01/2021 10:34 AM CS T documented as of this encounter Care Teams Licensed Mortgage Loan Officer Relationship Specialty Start Date End Date Elsewhere, Pcp PCP - General Family Medicine 08/12/20 documented as of this encounter
--- OUTSIDE RECORDS SUMMARY | 2022-06-18 16:00 | XMS_ITS | Encounter Summary ---
:1965 Author Organization [facility] Address [address] [place] [address] Care Team Providers Name Role Phone Elsewhere, Pcp Primary Care Provider Unavailable Reason for Visit Reason Comments Med Refill Encounter Details Date Type Department Care Team Description 05/26/2022 Refill Department of Oncology in [facility], Maria Del Rosario Sanchez APRN, Med Refill [place], [place] C.N.P., M.S. [address] [facility] [address] [place] [address] [place] [address] [phone] (Wo rk) Social History Tobacco Use Types [...] er 01/15/2021 How often do you attend congregational or catholic services? Never 01/15/2021 Do you belong to any clubs or organizations such as congregational N o 01/15/2021 groups, unions, fraternal or [...] place to sleep or slept in a longterm (including now)? Education Answer Date Recorded What is the highest level of school you have completed or 12 th grade 01/15/2021 the highest degree you have received? 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 [address] [place] [phone] (Wo rk) 06/22/2022 Infusion Oncology Maria Del Rosario Gomez APRN, C.N .P., M.S. [address] [place] [address] [phone] (Wo rk) 06/29/2022 Lab Laboratory Medicine Maria Del Rosario Gomez AP RN, C.N.P., M.S. [address] [place] [address] [phone] (Wo rk) 06/29/2022 Infusion Oncology Maria Del Rosario Gomez APRN, C.N .P., M.S. [address] [place] [address] [phone] (Wo rk) documented as of this encounter Visit Diagnoses Not on filedocumented in this encounter Additional Health Concerns Assessment Noted Time PHQ-9 Depression Total Score: 2 10/01/2021 10:34 AM CS T documented as of this encounter Care Teams Headliner Installer Relationship Specialty Start Date End Date Elsewhere, Pcp PCP - General Family Medicine 08/12/20 documented as of this encounter
--- OUTSIDE RECORDS SUMMARY | 2022-06-18 16:00 | XMS_ITS | Encounter Summary ---
:[address] [facility] Address [address] [place] [address] Care Team Providers Name Role Phone Elsewhere, Pcp Primary Care Provider Unavailable Encounter Details Date Type Department Care Team Description 05/30/2022 Lab Department of Infusion Maria Del Rosario Gomez, Malignant Neoplasm Of Pancreas (HCC) (Primary Dx); Therapy in [place], Pratik JACKNRiaz PRiaz, M.S. [facility] [address] [facility] [address] [place] [phone] [phone] (Wo rk) Social History Tobacco Use Types [...] How often do you attend quaker or caodaism services? 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 [address] [place] [phone] (Mj rk) 06/22/2022 Infusion Oncology Maria Del Rosario Gomez APRN, C.N .P., M.S. [address] [place] [address] [phone] (Mj rk) 06/29/2022 Lab Laboratory Medicine Maria Del Rosario Gomez AP RN, C.N.P., M.S. [address] [place] [address] [phone] (Mj rk) 06/29/2022 Infusion Oncology Maria Del Rosario Gomez APRN, C.N .P., M.S. [address] [place] [address] [phone] (Mj rk) documented as of this encounter Procedures Procedure Name Priority Date/Time Associated Comments Diagnosis CBC WITH DIFFERENTIAL, Routine 05/30/2022 12:44 Malignant Neop lasm Results for this B PM CDT Of Pancreas (HCC) procedure are in the results section. COMPREHENSIVE Routine 05/30/2022 12:44 Malignant Neoplasm Resu lts for this METABOLIC PANEL, S/P PM CDT Of Pancreas (HCC) pr ocedure are in the results section. documented in this encounter Results (ABNORMAL) Comprehensive Metabolic Panel (05/30/2022 12:44 PM CDT) P athologist Signature Potassium, S 3.7 3.6 - 5.2 05/30/2022 DTL mmol/L 1:33 PM CDT Sodium, S 138 135 - 145 05/30/2022 DTL mmol/L 1:33 PM CDT Chloride, S 103 98 - 107 05/30/2022 DTL mmol/L 1:33 PM CDT Bicarbonate, S 25 22 - 29 05/30/2022 DTL mmol/L 1:33 PM CDT Anion Gap 10 7 - 15 05/30/2022 DTL 1:33 PM CDT BUN (Blood Urea 11 8 - 24 05/30/2022 DTL Nitrogen), S mg/dL 1:33 PM CDT Creatinine 0.90 0.74 - 05/30/2022 DTL 1.35 mg/dL 1:33 PM CDT Estimated GFR >90 >=60 05/30/2022 DTL (eGFR) mL/min/BSA 1:33 PM CDT Comment: Estimated GFR calculated using the 2020 CKD_EPI creatinine equation. Calcium, Total, S 9.0 8.6 - 10.0 mg/dL 05/30/2022 1:33 PM CDT DTL Glucose, S 94 70 - 140 mg/dL 05/30/2022 1:33 PM CDT D TL Protein, Total, S 6.9 6.3 - 7.9 g/dL 05/30/2022 1:33 P M CDT DTL Albumin, S 4.0 3.5 - 5.0 g/dL 05/30/2022 1:33 PM CDT D TL Aspartate Aminotransferase 36 8 - 48 U/L 05/30/2022 1 :33 PM CDT DTL (AST), S Alkaline Phosphatase, S 351 (H) 40 - 129 U/L 05/30/2022 1: 33 PM CDT DTL Alanine Aminotransferase 95 (H) 7 - 55 U/L 05/30/2022 1:3 3 PM CDT DTL (ALT), S Bilirubin, Total, S 1.5 (H) <=1.2 mg/dL 05/30/2022 1:33 PM CDT DTL Specimen Anatomical Collection Method Collection Time Receive d Time (Source) Location / / Volume Laterality Blood (Blood, 05/30/2022 12:44 05/30/2022 1:14 Venous) PM CDT PM CDT Maria Del Rosario Gomez APRN C.N.P., M.S. LAB BLOOD ADD-ON Performing Organization Address City/State/ZIP Code Phon e Number [facility] - [address] [place], [place] [address] [facility] [place] [address] Laboratories-[facility] [address] (ABNORMAL) CBC with Differential, Blood (05/30/2022 12:44 PM CDT) [facility] Method Time Signature Hemoglobin 11.3 (L) 13.2 - 05/30/2022 DTL 16.6 g/dL 1:07 PM CDT Hematocrit 36.1 (L) 38.3 - 05/30/2022 DTL 48.6 % 1:07 PM CDT Erythrocytes 4.20 (L) 4.35 - 05/30/2022 DTL 5.65 1:07 PM CDT x10(12)/L MCV 86.0 78.2 - 05/30/2022 DTL 97.9 fL 1:07 PM CDT RBC Distrib Width 18.6 (H) 11.8 - 05/30/2022 DTL 14.5 % 1:07 PM CDT Platelet Count 169 135 - 317 05/30/2022 DTL x10(9)/L 1:07 PM CDT Leukocytes 4.2 3.4 - 9.6 05/30/2022 DTL x10(9)/L 1:07 PM CDT Neutrophils 3.24 1.56 - 05/30/2022 DTL 6.45 1:07 PM CDT x10(9)/L Lymphocytes 0.36 (L) 0.95 - 05/30/2022 DTL 3.07 1:07 PM CDT x10(9)/L Monocytes 0.54 0.26 - 05/30/2022 DTL 0.81 1:07 PM CDT x10(9)/L Eosinophils 0.10 0.03 - 05/30/2022 DTL 0.48 1:07 PM CDT x10(9)/L Basophils <0.03 0.01 - 05/30/2022 DTL 0.08 1:07 PM CDT x10(9)/L Specimen Anatomical Collection Method Collection Time Receive d Time (Source) Location / / Volume Laterality Blood (Blood, 05/30/2022 12:44 05/30/2022 1:01 Venous) PM CDT PM CDT Maria Del Rosario Gomez APRN, C.N.P., M.S. LAB BLOOD ADD-ON Performing Organization Address City/State/ZIP Code Phon e Number [facility] - [address] [place], [place] [address] [facility] [place] [address] Laboratories-[facility] [address] documented in this encounter Visit Diagnoses Diagnosis Malignant Neoplasm Of Pancreas (HCC) - P rimary Bacteremia documented in this encounter Administered Medications Inactive Administered Medications - up to 3 most recent administrations Medication Order MAR Action Action Date Dose Rate Site heparin flush 500 Units Given 05/30/2022 12:46 PM CDT 500 Units 500 Units, intra-catheter, As needed, line care, Starting on Mon05/30/22 at 1233, When no infusion to maintain patency: For IVAD accessed, not in use, and/or prior to hospital discharge, flush every 7 days after 0.9% preservative-free NaCL flush. For IVAD NOT accessed or used, flush every 4 weeks after 0.9% preservative-free NaCL flush. sodium chloride 0.9 % injection 20 mL Given 05/30/2022 12:46 PM CDT 20 mL 20 mL, intra-catheter, As needed, line care, Starting on Mon05/30/22 at 1233, When IVAD Accessed and in Use: Flush post blood transfusion or post blood sampling. documented in this encounter Additional Health Concerns Assessment Noted Time PHQ-9 Depression Total Score: 2 10/01/2021 10:34 AM CS T documented as of this encounter Care Teams Drum Sprayer Relationship Specialty Start Date End Date Elsewhere, Pcp PCP - General Family Medicine 08/12/20 documented as of this encounter
--- OUTSIDE RECORDS SUMMARY | 2022-06-18 16:00 | XMS_ITS | Encounter Summary ---
:1965 Author Organization [facility] Address [address] [place] [address] Care Team Providers Name Role Phone Elsewhere, Pcp Primary Care Provider Unavailable Reason for Visit Episode Based Medications (Routine) - Closed Specialty Diagnoses / Procedures Referred By Contact Refer red To Contact Diagnoses Malignant Neoplasm Of Pancreas (HCC) Secondary Malignant Neoplasm Liver (HCC) Medication Therapy Pony Edger Not Anticoagulant Jesse Perkins Rst Onc Rogo Procedures AK ONDANSETRON HCL INJECTION AK LEUCOVORIN CALCIUM INJECTION AK INJ IRINOTECAN LIPOSOME 1 MG [place] FLUOROURACIL INJECTION P.A.-C., M.S. [address] [facility] [address] [place] [phone] Referral ID Status Reason Start Date Expiration Date Visits Requ ested Visits Authorized [id number] Closed 08/27/2021 08/27/2022 36 36 Encounter Details Date Type Department Care Team Description 04/19/2022 Infusion Department of Oncology Vladislav Zarco Secondary Malignant Neoplasm Liver (HCC) (Primary Dx); in [facility] elke Pereira M.D. Medication Therapy Pony Edger Not Anticoa gulant; [address] [facility] [address] [facility] Malignant Neoplasm Of Pancreas (HCC); [place], [place] Bacteremia [phone] (Wo rk) Social History Tobacco Use Types [...] How often do you attend hinduism or caodaism services? 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 [address] [place] [address] [phone] (Mj godoy) 06/22/2022 Infusion Oncology Maria Del Rosario Gomez APRN, C.N .P., M.S. [address] [place] [phone] (Mj godoy) 06/29/2022 Lab Laboratory Medicine Maria Del Rosario Gomez AP RN, C.N.P., M.S. [address] [place] [address] [phone] (Mj godoy) 06/29/2022 Infusion Oncology Maria Del Rosario Gomez APRN, C.N .P., M.S. [address] [place] [phone] (Mj godoy) documented as of this encounter Visit Diagnoses Diagnosis Secondary Malignant Neoplasm Liver (HCC) - Primary Medication Therapy Usp Not Anticoa gulant Malignant Neoplasm Of Pancreas (HCC) Bacteremia documented in this encounter Administered Medications Inactive Administered Medications - up to 3 most recent administrations Medication Order MAR Action Action Date Dose Rate Site dexAMETHasone injection 8 mg Given 04/19/2022 12:00 PM CDT 8 mg (DECADRON) 8 mg, intravenous, Once, On Mon04/19/22 at 1200, For 1 dose fluorouraciL 4,500 mg in NaCl 0.9% Given 04/19/2022 3:28 PM CDT 4,500 mg 5 mL/hr 230 mL IVPB (ADRUCIL) 4,500 mg (rounded from 4,536 mg = 2,400 mg/m2 ? 1.89 m2 Treatment Plan BSA from Measured weight), intravenous, at 5 mL/hr, Administer over 46 Hours, over 46 hours, First dose on Mon04/19/22 at 1400, For 1 dose, Continuous infusion over 46 hours immediately following Leucovorin. Dose reflects TOTAL CALCULATED DOSE to be administered via continuous infusion over the specified length of treatment. irinotecan liposomaL 86 mg in D5W New Bag 04/19/2022 1:11 PM C DT 86 mg 347 mL/hr 520 mL IVPB (ONIVYDE) 86 mg (rounded from 81.27 mg = 43 mg/m2 ? 1.89 m2 Treatment Plan BSA from Measured weight), intravenous, at 347 mL/hr, Administer over 90 Minutes, Once, On Mon04/19/22 at 1200, For 1 dose, Administer immediately following the administration of oral onvansertib. Protect from light. No in-line filter. leucovorin 750 mg in NaCl 0.9% New Bag 04/19/2022 2:55 PM CDT 750 mg 625 mL/hr 312.5 mL IVPB 750 mg (rounded from 756 mg = 400 mg/m2 ? 1.89 m2 Treatment Plan BSA from Measured weight), intravenous, at 625 mL/hr, Administer over 30 Minutes, Once, On Mon04/19/22 at 1330, For 1 dose, Follows irinotecan liposome. NaCl 0.9 % bolus 1,000 mL New Bag 04/19/2022 12:00 PM CDT 1,000 mL 1000 mL/hr 1,000 mL, intravenous, at 1,000 mL/hr, Administer over 1 Hours, Once, On Mon04/19/22 at 1200, For 1 dose ondansetron (PF) injection 8 mg (ZOFRAN) Given 04/19/2022 12:00 PM CDT 8 mg 8 mg, intravenous, Once, On Mon04/19/22 at 1200, For 1 dose Research IRB [id number] onvansertib capsule 10 Given 1:10 PM CDT 10 mg mg (PCM-075) 10 mg, oral, Once, On Mon04/19/22 at 1200, For 1 dose, This is the 5 mg capsule. Administer using patient's own supply. Drug should be taken with a large glass of plain water without ice. Refrain from eating for 30 minutes following administration of Onvansertib. A light breakfast can be served between 30 minutes and 3 hours after drug intake. On the first day of each cycle, administered immediately prior to liposomal irinotecan Infusion. Research IRB [id number] onvansertib capsule 20 Given 1:10 PM CDT 20 mg mg (PCM-075) 20 mg, oral, Once, On Mon04/19/22 at 1200, For 1 dose, This is the 20 mg capsule. Administer using patient's own supply. Drug should be taken with a large glass of plain water without ice. Refrain from eating for 30 minutes following administration of Onvansertib. A light breakfast can be served between 30 minutes and 3 hours after drug intake. On the first day of each cycle, administered immediately prior to liposomal irinotecan Infusion. sodium chloride 0.9 % injection 10 mL Given 04/19/2022 3:28 PM CDT 10 mL 10 mL, intra-catheter, As needed, line care, Starting on Mon04/19/22 at 1149, When IVAD Accessed and in Use: Flush prior to and following infusion, between multiple consecutive infusions, and prior to blood sampling. Given 04/19/2022 12:00 PM CDT 10 mL documented in this encounter Additional Health Concerns Assessment Noted Time PHQ-9 Depression Total Score: 2 10/01/2021 10:34 AM CS T documented as of this encounter Care Teams Cna Instructor Relationship Specialty Start Date End Date Elsewhere, Pcp PCP - General Family Medicine 08/12/20 documented as of this encounter
--- OUTSIDE RECORDS SUMMARY | 2022-06-18 16:00 | XMS_ITS | Encounter Summary ---
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 [address] [place] [address] [address] [place] [phone] Referral ID Status Reason Start Date Expiration Date Visits Requ ested Visits Authorized [id number] Closed 08/27/2021 08/27/2022 36 36 Encounter Details Date Type Department Care Team Description 04/19/2022 Lab Department of Laboratory Everette Zarco Secondary Malignant Neoplasm Liver (HCC) (Primary Dx); Medicine and Pathology, R, M.D. Medication Therapy Production Welding Supervisor Not Anticoa gukendallt; Hernan Donato, in [address] [place] [address] Malignant Neoplasm Of Pancreas (HCC); [place], [place] Bacteremia [address] [place] [phone] [place] [address] [phone] Social History Tobacco Use Types Packs/Day Years [...] er 01/15/2021 How often do you attend bahai or advent services? Never 01/15/2021 Do you belong to any clubs or organizations such as bahai N o 01/15/2021 groups, unions, fraternal or [...] place to sleep or slept in a intermediate (including now)? Education Answer Date Recorded What is the highest level of school you have completed or 12 th grade 01/15/2021 the highest degree you have received? 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 - 04/19/2022 8:30 AM CDT Addended by: MARY COONEY on: 04/19/2022 09:54 AM Modules accepted: Orders documented in this encounter Plan of Treatment Upcoming Encounters Date Type Specialty Care Team Description 06/22/2022 Lab Laboratory Medicine Maria Del Rosario Gomez AP RN, C.N.P., M.S. [address] [place] [phone] (Mj godoy) 06/22/2022 Infusion Oncology Maria Del Rosario Gomez APRN, C.N .P., M.S. [address] [place] [address] [phone] (Mj godoy) 06/29/2022 Lab Laboratory Medicine Maria Del Rosario Gomez AP RN, C.N.P., M.S. [address] [place] [address] [phone] (Wo rk) 06/29/2022 Infusion Oncology Patricia, Maria Del Rosario Sanchez, GUERO, C.N .P., M.S. [address] [place], [place] [phone] (Wo rk) documented as of this encounter Procedures Procedure Name Priority Date/Time Associated Comments Diagnosis MISC RESEARCH ORDER, B Routine 04/19/2022 8:43 Malignant Neopl asm Results for this AM CDT Of Pancreas (HCC) procedure are in the results section. CBC WITH DIFFERENTIAL, B Routine 04/19/2022 8:43 Secondary Results for this AM CDT Malignant Neoplasm procedure are in Liver (HCC) the results Medication Therapy section. Production Welding Supervisor Not Anticoagulant Malignant Neoplasm Of Pancreas (HCC) ALANINE AMINOTRANSFERASE Routine 04/19/2022 8:43 Secondary Results for this (ALT), S/P AM CDT Malignant Neoplasm procedure are in Liver (HCC) the results Medication Therapy section. Longterm Not Anticoagulant Malignant Neoplasm Of Pancreas (HCC) ASPARTATE Routine 04/19/2022 8:43 Secondary Results for this AMINOTRANSFERASE (AST), AM CDT Malignant Neoplas m procedure are in S/P Liver (HCC) the results Medication Therapy section. Longterm Not Anticoagulant Malignant Neoplasm Of Pancreas (HCC) PHOSPHORUS (INORGANIC), Routine 04/19/2022 8:43 Secondary R esults for this S AM CDT Malignant Neoplasm procedure are in Liver (HCC) the results Medication Therapy section. Production Welding Supervisor Not Anticoagulant Malignant Neoplasm Of Pancreas (HCC) ALKALINE PHOSPHATASE, Routine 04/19/2022 8:43 Secondary Res ults for this S/P AM CDT Malignant Neoplasm procedure are in Liver (HCC) the results Medication Therapy section. Longterm Not Anticoagulant Malignant Neoplasm Of Pancreas (HCC) MAGNESIUM, S Routine 04/19/2022 8:43 Secondary Results for this AM CDT Malignant Neoplasm procedure are in Liver (HCC) the results Medication Therapy section. Longterm Not Anticoagulant Malignant Neoplasm Of Pancreas (HCC) BILIRUBIN, TOT, S/P Routine 04/19/2022 8:43 Secondary Resul ts for this AM CDT Malignant Neoplasm procedure are in Liver (HCC) the results Medication Therapy section. Longterm Not Anticoagulant Malignant Neoplasm Of Pancreas (HCC) ALBUMIN, S/P Routine 04/19/2022 8:43 Secondary Results for this AM CDT Malignant Neoplasm procedure are in Liver (HCC) the results Medication Therapy section. Longterm Not Anticoagulant Malignant Neoplasm Of Pancreas (HCC) BASIC METABOLIC PANEL, Routine 04/19/2022 8:43 Secondary Re sults for this S/P AM CDT Malignant Neoplasm procedure are in Liver (HCC) the results Medication Therapy section. Longterm Not Anticoagulant Malignant Neoplasm Of Pancreas (HCC) documented in this encounter Results Miscellaneous Research, B (04/19/2022 8:43 AM CDT) athologist Signature Number of 3 04/19/2022 HSS Specimens 8:43 AM CDT Specimen Anatomical Collection Method Collection Time Receive d Time (Source) Location / / Volume Laterality Varies (Blood, 04/19/2022 8:43 AM 022 8:43 Venous) CDT AM CDT Vladislav Zarco M.D. LAB RESEARCH NO RESULT ROUTI NG Performing Organization Address City/[facility] Phon e Number [facility] - [address] (ABNORMAL) ALT (Alanine Aminotransferase) (04/19/2022 8:43 AM CDT) [facility] [place] Method Time Signature Alanine 61 (H) 7 - 55 04/19/2022 DTL Aminotransferase U/L 10:47 AM CDT (ALT), S Specimen Anatomical Collection Method Collection Time Receive d Time (Source) Location / / Volume Laterality Blood (Blood, 04/19/2022 8:43 AM 04/19/20 22 Venous) CDT 10:09 AM CDT Vladislav Zarco M.D. LAB BLOOD ADD-ON Performing Organization Address City/[facility] Phon e Number [facility] - [address] DTL [address] AST (Aspartate Aminotransferase) (04/19/2022 8:43 AM CDT) [facility] [place] Method Time Signature Aspartate 22 8 - 48 04/19/2022 METH Aminotransferase U/L 9:53 AM CDT (AST), P Specimen Anatomical Collection Method Collection Time Receive d Time (Source) Location / / Volume Laterality Blood (Blood, 04/19/2022 8:43 AM 04/19/20 22 9:26 Venous) CDT AM CDT Vladislav Zarco M.D. LAB BLOOD ADD-ON Performing Organization Address City/State/ZIP Code Phon e Number [facility] - [address] [place], [place] [address] [facility] [place] [address] [facility] [address] Bilirubin, Total (04/19/2022 8:43 AM CDT) athologist Signature Bilirubin, 0.6 <=1.2 mg/dL 04/19/2022 METH Total, P 9:53 AM CDT Specimen Anatomical Collection Method Collection Time Receive d Time (Source) Location / / Volume Laterality Blood (Blood, 04/19/2022 8:43 AM 04/19/20 22 9:26 Venous) CDT AM CDT Vladislav Zarco M.D. LAB BLOOD ADD-ON Performing Organization Address City/[facility]/ZIP Code Phon e Number [facility] - [address] [place], [place] [address] [facility] [place] [address] [facility] [address] (ABNORMAL) Alkaline Phosphatase (04/19/2022 8:43 AM CDT) athologist Signature Alkaline 330 (H) 40 - 129 04/19/2022 DTL Phosphatase, S U/L 10:47 AM CDT Specimen Anatomical Collection Method Collection Time Receive d Time (Source) Location / / Volume Laterality Blood (Blood, 04/19/2022 8:43 AM 04/19/20 22 Venous) CDT 10:09 AM CDT Vladislav Zarco M.D. LAB BLOOD ADD-ON Performing Organization Address City/State/ZIP Code Phon e Number [facility] - [address] [place], [place] [address] [facility] [place] [address] [facility] [address] Magnesium (04/19/2022 8:43 AM CDT) athologist Signature Magnesium, S 2.1 1.7 - 2.3 04/19/2022 DTL mg/dL 10:47 AM CDT Specimen Anatomical Collection Method Collection Time Receive d Time (Source) Location / / Volume Laterality Blood (Blood, 04/19/2022 8:43 AM 04/19/20 22 Venous) CDT 10:09 AM CDT Vladislav Zarco M.D. LAB BLOOD ADD-ON Performing Organization Address City/State/ZIP Code Phon e Number [facility] - [address] [place], [place] [address] [place] [address] [facility] [address] Phosphorus Inorganic (04/19/2022 8:43 AM CDT) P athologist Signature Phosphorus 3.7 2.5 - 4.5 04/19/2022 DTL (Inorganic), S mg/dL 10:47 AM CDT Specimen Anatomical Collection Method Collection Time Receive d Time (Source) Location / / Volume Laterality Blood (Blood, 04/19/2022 8:43 AM 04/19/20 22 Venous) CDT 10:09 AM CDT Vladislav Zarco M.D. LAB BLOOD ADD-ON Performing Organization Address City/State/ZIP Code Phon e Number [facility] - [address] [place], [place] [address] [place] [place] [address] [facility] [address] Albumin (04/19/2022 8:43 AM CDT) P athologist Signature Albumin, S 4.0 3.5 - 5.0 04/19/2022 DTL g/dL 10:47 AM CDT Specimen Anatomical Collection Method Collection Time Receive d Time (Source) Location / / Volume Laterality Blood (Blood, 04/19/2022 8:43 AM 04/19/20 22 Venous) CDT 10:09 AM CDT Vladislav Zarco M.D. LAB BLOOD ADD-ON Performing Organization Address City/State/ZIP Code Phon e Number [facility] - [address] [place], [place] [address] [facility] [place] [address] [place] [address] (ABNORMAL) Basic Metabolic Panel (04/19/2022 8:43 AM CDT) P athologist Signature Potassium, P 3.9 3.6 - 5.2 04/19/2022 METH mmol/L 9:53 AM CDT Sodium, P 140 135 - 145 04/19/2022 METH mmol/L 9:53 AM CDT Chloride, P 104 98 - 107 04/19/2022 METH mmol/L 9:53 AM CDT Bicarbonate, P 24 22 - 29 04/19/2022 METH mmol/L 9:53 AM CDT Anion Gap, P 12 7 - 15 04/19/2022 METH 9:53 AM CDT BUN (Blood Urea 12 8 - 24 04/19/2022 METH Nitrogen), P mg/dL 9:53 AM CDT Creatinine 0.87 0.74 - 04/19/2022 METH 1.35 mg/dL 9:53 AM CDT eGFR-Black/Afric >90 >=60 04/19/2022 METH an Nigerian mL/min/BSA 9:53 AM CDT Comment: ----ADDITIONAL INFORMATION---- Estimated GFR calculated using the 2009 CKD_EPI creatinine equation. eGFR Non-Black/ >90 >=60 mL/min/BSA 04/19/2022 9:53 AM CDT METH Comment: ----ADDITIONAL INFORMATION---- Estimated GFR calculated using the 2009 CKD_EPI creatinine equation. Calcium, Total, P 9.2 8.6 - 10.0 mg/dL 04/19/2022 9:53 AM CDT METH Glucose, P 142 (H) 70 - 140 mg/dL 04/19/2022 9:53 AM CDT M [facility] Specimen Anatomical Collection Method Collection Time Receive d Time (Source) Location / / Volume Laterality Blood (Blood, 04/19/2022 8:43 AM 04/19/20 9:26 Venous) CDT AM CDT Vladislav Zarco M.D. LAB BLOOD ADD-ON Performing Organization Address City/State/ZIP Code Phon e Number [facility] - [address] [place], [place] [address] [facility] [place] [address] [facility] [address] [facility] (ABNORMAL) CBC with Differential, Blood (04/19/2022 8:43 AM CDT) [facility] gist Method Time Signature Hemoglobin 10.0 (L) 13.2 - 04/19/2022 DTL 16.6 g/dL 10:25 AM CDT Hematocrit 31.5 (L) 38.3 - 04/19/2022 DTL 48.6 % 10:25 AM CDT Erythrocytes 3.70 (L) 4.35 - 04/19/2022 DTL 5.65 10:25 AM CDT x10(12)/L MCV 85.1 78.2 - 04/19/2022 DTL 97.9 fL 10:25 AM CDT RBC Distrib Width 19.0 (H) 11.8 - 04/19/2022 DTL 14.5 % 10:25 AM CDT Platelet Count 196 135 - 317 04/19/2022 DTL x10(9)/L 10:25 AM CDT Leukocytes 4.2 3.4 - 9.6 04/19/2022 DTL x10(9)/L 10:25 AM CDT Neutrophils 3.07 1.56 - 04/19/2022 DTL 6.45 10:25 AM CDT x10(9)/L Lymphocytes 0.47 (L) 0.95 - 04/19/2022 DTL 3.07 10:25 AM CDT x10(9)/L Monocytes 0.46 0.26 - 04/19/2022 DTL 0.81 10:25 AM CDT x10(9)/L Eosinophils 0.12 0.03 - 04/19/2022 DTL 0.48 10:25 AM CDT x10(9)/L Basophils 0.03 0.01 - 04/19/2022 DTL 0.08 10:25 AM CDT x10(9)/L Specimen Anatomical Collection Method Collection Time Receive d Time (Source) Location / / Volume Laterality Blood (Blood, 04/19/2022 8:43 AM 04/19/20 22 Venous) CDT 10:09 AM CDT Vladislav Zarco M.D. LAB BLOOD ADD-ON Performing Organization Address City/State/ZIP Code Phon e Number [facility] - [address] [place], [place] [address] [facility] [place] [address] [facility] [address] documented in this encounter Visit Diagnoses Diagnosis Secondary Malignant Neoplasm Liver (HCC) - Primary Medication Therapy Longterm Not Anticoa gulant Malignant Neoplasm Of Pancreas (HCC) Bacteremia documented in this encounter Administered Medications Inactive Administered Medications - up to 3 most recent administrations Medication Order MAR Action Action Date Dose Rate Site heparin flush 500 Units Given 04/19/2022 8:50 AM CDT 500 Units 500 Units, intra-catheter, As needed, line care, Starting on Mon04/19/22 at 0826, When no infusion to maintain patency: For IVAD accessed, not in use, and/or prior to hospital discharge, flush every 7 days after 0.9% preservative-free NaCL flush. For IVAD NOT accessed or used, flush every 4 weeks after 0.9% preservative-free NaCL flush. sodium chloride 0.9 % injection 10 mL Given 04/19/2022 8:50 AM CDT 10 mL 10 mL, intra-catheter, As needed, line care, Starting on Mon04/19/22 at 0826, When IVAD Accessed and in Use: Flush prior to and following infusion, between multiple consecutive infusions, and prior to blood sampling. sodium chloride 0.9 % injection 20 mL Given 04/19/2022 8:50 AM CDT 20 mL 20 mL, intra-catheter, As needed, line care, Starting on Mon04/19/22 at 0826, When IVAD Accessed and in Use: Flush post blood transfusion or post blood sampling. documented in this encounter Additional Health Concerns Assessment Noted Time PHQ-9 Depression Total Score: 2 10/01/2021 10:34 AM CS T documented as of this encounter Care Teams Carpet Sewing Machine Operator Relationship Specialty Start Date End Date Elsewhere, Pcp PCP - General Family Medicine 08/12/20 documented as of this encounter
--- OUTSIDE RECORDS SUMMARY | 2022-06-18 16:00 | XMS_ITS | Encounter Summary ---
:1965 Author Organization [facility] Address [address] [place] [address] Care Team Providers Name Role Phone Elsewhere, Pcp Primary Care Provider Unavailable Reason for Visit Reason Comments Refill request - Hydromorphone Refill request - Creon Encounter Details Date Type Department Care Team Description 04/11/2022 Clinical Communication Department of Mary Gomez ll request - Oncology in Maria Del Rosario L, Hydromorphone ; ConorGUERO, C.N.P., Refill request - [place] M.S. Creon [address] [facility] [address] [place] [phone] Social History Tobacco Use Types Packs/Day Years [...] er 01/15/2021 How often do you attend sabianism or taoism services? Never 01/15/2021 Do you belong to any clubs or organizations such as sabianism N o 01/15/2021 groups, unions, fraternal or [...] place to sleep or slept in a jail (including now)? Education Answer Date Recorded What is the highest level of school you have completed or 12 th grade 01/15/2021 the highest degree you have received? 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 5 Drug: Creon Dose: 24,000-76,000,120,000 unit Pharmacy name & location: [facility] Team: GIP How many days of medication left? 1/2 bottle left Please call patient back if any questions. Thank you, Marcela RST ONC [employer] SP[employer] POD 1 documented in this encounter Plan of Treatment Upcoming Encounters Date Type Specialty Care Team Description 06/22/2022 Lab Laboratory Medicine Maria Del Rosario Gomez AP RN, C.N.P., M.S. [address] [place] [phone] (Mj godoy) 06/22/2022 Infusion Oncology Maria Del Rosario Gomez APRN, C.N .P., M.S. [address] [place] [address] [phone] (Mj godoy) 06/29/2022 Lab Laboratory Medicine Maria Del Rosario Gomez AP RN, C.N.P., M.S. [address] [place] [phone] (Mj godoy) 06/29/2022 Infusion Oncology Maria Del Rosario Gomez APRN, C.N .P., M.S. [address] [place] [phone] (Mj godoy) documented as of this encounter Visit Diagnoses Not on filedocumented in this encounter Additional Health Concerns Assessment Noted Time PHQ-9 Depression Total Score: 2 10/01/2021 10:34 AM CS T documented as of this encounter Care Teams Shelver Relationship Specialty Start Date End Date Elsewhere, Pcp PCP - General Family Medicine 08/12/20 documented as of this encounter
--- OUTSIDE RECORDS SUMMARY | 2022-06-18 16:00 | XMS_ITS | Encounter Summary ---
:1965 Author Organization [facility] Address [address] [place] [phone] Care Team Providers Name Role Phone Elsewhere, Pcp Primary Care Provider Unavailable Reason for Visit Outpatient (Routine) - Closed Specialty Diagnoses / Procedures Referred By Contact Refer red To Contact Oncology Maria Del Rosario Gomez APRN, C.N.P., [facility] M.S. [address] [place] [address] [phone] Referral ID Status Reason Start Date Expiration Date Visits Requ ested Visits Authorized [id number] Closed 05/30/2022 05/29/2025 1 1 Encounter Details Date Type Department Care Team Description 05/30/2022 Office Visit Department of Maria Del Rosario Gomez APRN, C.N.P., M.S. [address] [place] [phone] Dehydration (Primary Dx); [facility], [facility] [address] [place] [address] [phone] Hyperbilirubinemia; [place], [place] Abdominal Pain; 200 [facility] Malignant Neoplasm Of Other Parts Of Pancreas (HCC); [place], [place] Secondary Rachel gnant Neoplasm Liver (HCC) [id number] Social History Tobacco Use Types Packs/Day Years [...] er 01/15/2021 How often do you attend hoahaoism or gnosticism services? 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 - 05/30/2022 1:20 PM CDT CHIEF COMPLAINT/PUPROSE OF VISIT: Seen in [facility] Acute Clinic for: Abdominal pain Primary Care Team: GI care team purple Primary Oncologist: Deborah Murray M.B.BRiazSMaria Del Rosario Rosales APRN, C.N.P., M.S. Oncologic Diagnosis: Pancreatic cancer Oncologic Treatment: [facility] CRDF-001 Referred by: Primary Oncology team HISTORY OF PRESENT ILLNESS: Mr. Campbell is a very pleasant 57 y.o. male who presents today with complaints of increasing left lower quadrant abdominal pain and nausea reminiscent of patient's prior biliary obstruction. Patient's is present during the evaluation. Additional information is gathered from the family member. Notably, patient states he passed a kidney stone last 05/26. He states he is a history of renal stones, however had not had a renal stone in several years. Since , he has noticed increasing intermittent left lower quadrant abdominal pain. He describes the pain as sharp and 10/10 when it occurs. Denies pain being exacerbated by movement. Patient also notes increasing retching with nausea. Hedoes his best to eat tiny, frequent meals very slowly. He had 1 episode of nonbloody emesis over the. He states his pain and increasing food intolerance is identical to what he experienced in January 2022 when he required his 1st ERCP. Notably, patient was seen in Oncology Clinic 05/18/2022 where his LFTs were noted to be elevated and he with preemptively scheduled for ERCP 06/03/2022 for concernfor mild biliary stent obstruction. Patient's last bowel movement was yesterday after taking a stoolsoftener. Patient utilizes Dilaudid for pain as well as Creon with meals. Today, he denies fevers, melena, hematochezia, abdominal distension, flank pain, hematemesis, dysuria, urinary frequency/urgency. ROS: Pertinent items are noted in HPI; otherwise a 10-point review of systems was completed and negative. VITAL SIGNS: Temperature: 36.1 ??C Resp Rate: 16 Blood Pressure: 98/67 SpO2: 98 % Height: 177.4 cm Weight: 71.8 kg BMI (Calculated): 22.8 kg/m?? PHYSICAL EXAM: General: alert male in no distress, nontoxic Heart: S1/S2 without murmur, gallops, clicks or rubs; no cyanosis, regular rate and rhythm. No cyanosis, clubbing, or edema noted in extremities. Lungs: CTA bilaterally; no wheezes, rhonchi or rales. No cough, no tachypnea, respirations regular and unlabored Abdomen: soft, mildly tender to palpation of the mid left abdomen. No rebound tenderness. Bowel sounds present throughout four quadrants Skin: warm, dry, intact. No CVA tenderness Eyes: Very mild jaundice ENT: mucous membranes pink, moist and without lesions. Dentition intact. No oral petechiae noted. Nogingival bleeding noted. Mental: oriented to person, place, time and situation. Responds appropriately to questions. DIAGNOSTICS: I reviewed the imaging studies and agree with the interpretation as recorded. I reviewed the pertinent laboratory and diagnotic data. ASSESSMENT/PLAN: #1 Dehydration #2 Hyperbilirubinemia #3 Abdominal Pain #4 Malignant Neoplasm Of Other Parts Of Pancreas (HCC) #5 Secondary Malignant Neoplasm Liver (HCC) Total bilirubin elevated to 1.5 from 0.5 on 05/18/2022 reflecting biliary obstruction. ALT/AST/alk-phos are 95/36/351 from 75/31/452 previously. No leukocytosis. Patient is not toxic appearing and afebrile. Patient is not tachycardic, however note mild hypotension with BP 98/67, which likely represents dehydration in the setting of poor oral intake related to nausea and emesis. Patient's ERCP is scheduled 06/03/2022. We did call ERCP procedural area to see if we would be able to move ERCP sooner, however patient was placed on waiting list. This was discussed with patient and recommended he keep hisphone close. Have set patient up to receive 1 L IV fluids in ITC today for dehydration. In regards to recently passed renal stone. Patient is scheduled for CT imaging Monday. Discussed any calculi greater than or equal to 6 mm would require Urology consult. Discussed worrisome symptomsthat would require emergent care, including fevers, worsening abdominal pain, melena, hematochezia, hematemesis, dysuria, and inability to urinate. Patient verbalized understanding. Have reached out to primary oncology team regarding planned chemotherapy on Monday. FOLLOW-UP: Mr. Campbell will follow-up with their oncology care team on 06/01/2022 and has been instructed to contact their oncology care team anytime with further questions or concerns. BILLING: Total time 60 minutes. documented in this encounter Plan of Treatment Upcoming Encounters Date Type Specialty Care Team Description 06/22/2022 Lab Laboratory Medicine [place] pierre AP RN, C.N.P., M.S. [address] [place] [address] [phone] (Wo rk) 06/22/2022 Infusion Oncology Maria Del Rosario Gomez APRN, C.N .P., M.S. [address] [place] [address] [phone] (Wo rk) 06/29/2022 Lab Laboratory Medicine Maria Del Rosario Gomez AP RN, C.N.P., M.S. [address] [place] [address] [phone] (Wo rk) 06/29/2022 Infusion Oncology Maria Del Rosario Gomez APRN, C.N .P., M.S. [address] [place] [address] [phone] (Wo rk) documented as of this encounter Visit Diagnoses Diagnosis Dehydration - Primary Hyperbilirubinemia Abdominal Pain Malignant Neoplasm Of Other Parts Of [place] creas (HCC) Secondary Malignant Neoplasm Liver (HCC) documented in this encounter Additional Health Concerns Assessment Noted Time PHQ-9 Depression Total Score: 2 10/01/2021 10:34 AM CS T documented as of this encounter Care Teams Cloth Shearing Supervisor Relationship Specialty Start Date End Date Elsewhere, Pcp PCP - General Family Medicine 08/12/20 documented as of this encounter
--- OUTSIDE RECORDS SUMMARY | 2022-06-18 16:00 | XMS_ITS | Encounter Summary ---
:1965 Author Organization [facility] Address [address] [place] [address] Care Team Providers Name Role Phone Elsewhere, Pcp Primary Care Provider Unavailable Reason for Visit Reason Comments Rx refill-hydromorphone Encounter Details Date Type Department Care Team Description 05/26/2022 Clinical Department of Tammi Parry Communication Oncology in [place] refill-hydrom orphsaira Perdomo R.N. [facility] [address] [facility] [address] [place] [phone] Social History Tobacco Use Types Packs/Day Years [...] er 01/15/2021 How often do you attend alevism or adventism services? 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 - 05/26/2022 4:47 PM CDT Rx refill request sent to Maria Del Rosario to sign. Telephone Encounter - Patricia Novoa - 05/26/2022 10:06 AM CDT Drug: Hydromorphone (Dilaudid Dose: 4mg tablet Pharmacy name & location: [facility] Care Team: GIP How many days of medication left? 4 pills left Thank you, Mireya RST ONC [facility] MED AA POD 1 documented in this encounter Plan of Treatment Upcoming Encounters Date Type Specialty Care Team Description 06/22/2022 Lab Laboratory Medicine Maria Del Rosario Gomez AP RN, C.N.P., M.S. [address] [place] [address] [phone] (Mj godoy) 06/22/2022 Infusion Oncology Maria Del Rosario Gomez APRN, C.N .P., M.S. [address] [place] [address] [phone] (Mj godoy) 06/29/2022 Lab Laboratory Medicine Maria Del Rosario Gomez AP RN, C.N.P., M.S. [address] [place] [address] [phone] (Mj godoy) 06/29/2022 Infusion Oncology Maria Del Rosario Gomez APRN, C.N .P., M.S. [address] [place] [address] [phone] (Mj godoy) documented as of this encounter Visit Diagnoses Not on filedocumented in this encounter Additional Health Concerns Infection Onset Date Last Indicated Resolved Time COVID19 Pending 06/01/2022 06/01/2022 06/02/2022 1:36 AM CDT Assessment Noted Time PHQ-9 Depression Total Score: 2 10/01/2021 10:34 AM CS T documented as of this encounter Care Teams Telemarketer Supervisor Relationship Specialty Start Date End Date Elsewhere, Pcp PCP - General Family Medicine 08/12/20 documented as of this encounter
--- OUTSIDE RECORDS SUMMARY | 2022-06-18 16:00 | XMS_ITS | Encounter Summary ---
:1965 Author Organization [facility] Address [address] [place] [address] Care Team Providers Name Role Phone Elsewhere, Pcp Primary Care Provider Unavailable Reason for Visit Episode Based Medications (Routine) - Closed Specialty Diagnoses / Procedures Referred By Contact Refer red To Contact Diagnoses Malignant Neoplasm Of Pancreas (HCC) Secondary Malignant Neoplasm Liver (HCC) Medication Therapy Group Home Not Anticoagulant [facility] Procedures WY ONDANSETRON HCL INJECTION WY LEUCOVORIN CALCIUM INJECTION WY INJ IRINOTECAN LIPOSOME 1 MG WY FLUOROURACIL INJECTION P.A.-C., M.S. [address] [facility] [address] [place] [phone] Referral ID Status Reason Start Date Expiration Date Visits Requ ested Visits Authorized [id number] Closed 08/27/2021 08/27/2022 36 36 Encounter Details Date Type Department Care Team Description 04/19/2022 Office Visit Department of Oncology Teddy Zarco Malignant Neoplasm Liver (HCC) (Primary Dx); in [place], Vladislav Pereira M.D. Medication Therapy Group Home Not Anticoa gulant; [place] [address] [facility] Malignant Neoplasm Of Pancreas (HCC) [address] [place] [phone] Social History Tobacco Use Types Packs/Day Years [...] How often do you attend congregational or judaism services? 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 - 04/19/2022 10:30 AM CDT SUBJECTIVE PRIMARY CARE PHYSICIAN ELSEWHERE, PCP Patient Care Team: Adrian Mills M.D. as External Primary Care Physician (Family Medicine) LOCAL ONCOLOGIST No care steam flattener to display PRIMARY [place] ONCOLOGIST Deborah Murray M.B.BRiazS. Maria Del Rosario Gomez APRN, C.N.P., M.S. CHIEF COMPLAINT / REASON FOR VISIT Adam Campbell is a 56 y.o. male who presents for evaluation of metastatic pancreatic cancer. Continues to do well on therapy. He is having little more neuropathy discomfort at night so is wondering if he can increase his gabapentin from 600 mg to 900 mg at night HISTORY OF PRESENT ILLNESS Oncology History Oncology [...] (01/25/2021 - 03/02/2021) Site: Pancreas Technique: 3D CUSTOM CAR BUILDER Goal: Curative Planned Treatment Start Date: 01/25/2021 [...] in Patients with Metastatic Pancreatic Ductal Adenocarcinoma ([id number]) Treatment Protocol: [facility] CRDF-001 ( Onvansertib (Days 1-10) / Fluorouracil / Leucovorin / Nanoliposomal Irinotecan ) ONC General HPI The following portions of the patient's history were reviewed and updated as appropriate: allergies,current medications, medical history, and problem list. Rate your distress: 2 REVIEW OF SYSTEMS REVIEW OF SYSTEMS OBJECTIVE BP 103/71 (BP Location: Right arm, Patient Position: Sitting, Cuff Size: Regular) Pulse 80 Temp 36.6 ??C (Tympanic) Resp 16 Ht 177.2 cm Wt 71.3 kg SpO2 99% BMI 22.72 kg/m?? PHYSICAL EXAM ECOG performance score: 0 - asymptomatic Constitutional Appearance: Normal appearance. Cardiovascular Rate and Rhythm: Normal rate and regular rhythm. Pulmonary Effort: Pulmonary effort is normal. Breath sounds: Normal breath sounds. Abdominal General: Bowel sounds are normal. Palpations: Abdomen is soft. There is no hepatomegaly. Lymphadenopathy Cervical: No cervical adenopathy. Upper Body: Right upper body: No supraclavicular adenopathy. Left upper body: No supraclavicular adenopathy. Skin General: Skin is warm and dry. Neurological Mental Status: He is alert and oriented to person, place, and time. Psychiatric Behavior: Behavior is cooperative. LABORATORY DATA Lab data reviewed. RADIOLOGICAL DATA Radiology data reviewed. ASSESSMENT / PLAN #1 Secondary Malignant Neoplasm Liver (HCC) #2 Medication Therapy Weighing Station Operator Not Anticoagulant #3 Malignant Neoplasm Of Pancreas (HCC) Patient is doing reasonably well. His neuropathy is not related to his current treatment but I will increase his gabapentin a little bit. Is planning on doing a trip to visit his daughter in [place] so will miss his next dose which was previously discussed with the study team and arranged. I confirmed in the computer that that is the plan. I spoke with the service line coordinator who will also confirm that it was the plan with the study team. PATIENT EDUCATION Ready to learn, no apparent learning barriers were identified; learning preferences include listening. Explained diagnosis and treatment plan; patient expressed understanding of the content. ADMINISTRATIVE BILLING I personally spent 30 minutes in care of the patient today. Time includes both non face to face and face to face patient care. documented in this encounter Plan of Treatment Upcoming Encounters Date Type Specialty Care Team Description 06/22/2022 Lab Laboratory Medicine Maria Del Rosario Gomez AP RN, C.N.P., M.S. [address] [place] [address] [phone] (Mj godoy) 06/22/2022 Infusion Oncology Maria Del Rosario Gomez APRN, C.N .P., M.S. [address] [place] [address] [phone] (Mj godoy) 06/29/2022 Lab Laboratory Medicine Maria Del Rosario Gomez AP RN, C.N.P., M.S. [address] [place] [address] [phone] (Mj godoy) 06/29/2022 Infusion Oncology Maria Del Rosario Gomez APRN, C.N .P., M.S. [address] [place] [address] [phone] (Mj godoy) documented as of this encounter Visit Diagnoses Diagnosis Secondary Malignant Neoplasm Liver (HCC) - Primary Medication Therapy Group Home Not Anticoa gulant Malignant Neoplasm Of Pancreas (HCC) documented in this encounter Additional Health Concerns Assessment Noted Time PHQ-9 Depression Total Score: 2 10/01/2021 10:34 AM CS T documented as of this encounter Care Teams Cleaning Associate Relationship Specialty Start Date End Date Elsewhere, Pcp PCP - General Family Medicine 08/12/20 documented as of this encounter
--- OUTSIDE RECORDS SUMMARY | 2022-06-18 16:00 | XMS_ITS | Encounter Summary ---
:1965 Author Organization [facility] Address [address] [place] [address] Care Team Providers Name Role Phone Elsewhere, Pcp Primary Care Provider Unavailable Encounter Details Date Type Department Care Team Description 04/19/2022 Orders Only Department of Oncology Marlin Kingston Malignant Neoplasm Of in [facility] [address] [facility] Pancreas (HCC) (Primary [address] [place], [place] Dx) [place] [phone] Social History Tobacco Use Types Packs/Day Years [...] er 01/15/2021 How often do you attend jainism or christian services? 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 [address] [place] [address] [phone] (Wo rk) 06/22/2022 Infusion Oncology [place] pierre APRN, Remy.N .P., M.S. [address] [place] [address] [phone] (Wo rk) 06/29/2022 Lab Laboratory Medicine Maria Del Rosario Gomez AP RN, C.N.P., M.S. [address] [place] [address] [phone] (Wo rk) 06/29/2022 Infusion Oncology Maria Del Rosario Gomez APRN, Remy.N .Pamela., M.S. [address] [place] [address] [phone] (Wo rk) documented as of this encounter Results Miscellaneous Research, B (06/01/2022 8:36 AM CDT) athologist Signature Number of 3 06/01/2022 S Specimens 8:36 AM CDT Specimen Anatomical Collection Method Collection Time Receive d Time (Source) Location / / Volume Laterality Varies (Blood, 06/01/2022 8:36 AM 022 8:36 Venous) CDT AM CDT Vladislav Zarco M.D. LAB RESEARCH NO RESULT VERENICE MCFADDEN Performing Organization Address City/State/ZIP Code Phon e Number [facility] - [address] [place] [phone] [place] [address] [address] Miscellaneous Research, B (04/19/2022 8:43 AM CDT) athologist Signature Number of 3 04/19/2022 S Specimens 8:43 AM CDT Specimen Anatomical Collection Method Collection Time Receive d Time (Source) Location / / Volume Laterality Varies (Blood, 04/19/2022 8:43 AM 022 8:43 Venous) CDT AM CDT Vladislav Zarco M.D. LAB RESEARCH NO RESULT VERENICE MCFADDEN Performing Organization Address City/State/[facility] Phon e Number [facility] - [address] [place], [place] [address] [place] [address] Laboratories-[facility] [address] documented in this encounter Visit Diagnoses Diagnosis Malignant Neoplasm Of Pancreas (HCC) - P rimary documented in this encounter Additional Health Concerns Assessment Noted Time PHQ-9 Depression Total Score: 2 10/01/2021 10:34 AM CS T documented as of this encounter Care Teams Research Tech Relationship Specialty Start Date End Date Elsewhere, Pcp PCP - General Family Medicine 08/12/20 documented as of this encounter
--- OUTSIDE RECORDS SUMMARY | 2022-06-18 16:00 | XMS_ITS | Encounter Summary ---
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 [address] [place] [address] [address] [place] [phone] Referral ID Status Reason Start Date Expiration Date Visits Requ ested Visits Authorized [id number] Closed 08/27/2021 08/27/2022 36 36 Encounter Details Date Type Department Care Team Description 05/18/2022 Lab Department of Laboratory Jaden Glass, Secondary Malignant Neoplasm Liver (HCC) (Primary Dx); Medicine and Pathology, LIVE IN HOUSEKEEPER NANNY, C. N.P. Medication Therapy Mcfp Not Anticoa gulant; Michele Tanmay, in [address] [place] [address] Malignant Neoplasm Of Pancreas (HCC); [place], [place] Bacteremia [address] [place] [phone] [place] [address] [phone] Social History Tobacco Use Types Packs/Day Years [...] er 01/15/2021 How often do you attend denominational or synagogue services? Never 01/15/2021 Do you belong to any clubs or organizations such as denominational N o 01/15/2021 groups, unions, fraternal or [...] place to sleep or slept in a halfway (including now)? Education Answer Date Recorded What is the highest level of school you have completed or 12 th grade 01/15/2021 the highest degree you have received? 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 [address] [place] [phone] (Mj godoy) 06/22/2022 Infusion Oncology Maria Del Rosario Gomez APRN, C.N .P., M.S. [address] [place] [phone] (Mj godoy) 06/29/2022 Lab Laboratory Medicine Maria Del Rosario Gomez AP RN, C.N.P., M.S. [address] [place] [phone] (Mj godoy) 06/29/2022 Infusion Oncology Maria Del Rosario Gomez APRN, C.N .P., M.S. [address] [place] [phone] (Mj godoy) documented as of this encounter Procedures Procedure Name Priority Date/Time Associated Comments Diagnosis CARBOHYDRATE AG 19-9 (CA Routine 05/18/2022 11:18 Malignant Ne oplasm Results for this 19-9), S AM CDT Of Pancreas (HCC) procedure are in the results section. CBC WITH DIFFERENTIAL, B Routine 05/18/2022 11:18 Secondary Results for this AM CDT Malignant Neoplasm procedure are in Liver (HCC) the results Medication Therapy section. Perinatal Director Not Anticoagulant Malignant Neoplasm Of Pancreas (HCC) ALANINE AMINOTRANSFERASE Routine 05/18/2022 11:18 Secondary Results for this (ALT), S/P AM CDT Malignant Neoplasm procedure are in Liver (HCC) the results Medication Therapy section. Perinatal Director Not Anticoagulant Malignant Neoplasm Of Pancreas (HCC) ASPARTATE Routine 05/18/2022 11:18 Secondary Results for this AMINOTRANSFERASE (AST), AM CDT Malignant Neoplas m procedure are in S/P Liver (HCC) the results Medication Therapy section. Perinatal Director Not Anticoagulant Malignant Neoplasm Of Pancreas (HCC) PHOSPHORUS (INORGANIC), Routine 05/18/2022 11:18 Secondary Results for this S AM CDT Malignant Neoplasm procedure are in Liver (HCC) the results Medication Therapy section. Perinatal Director Not Anticoagulant Malignant Neoplasm Of Pancreas (HCC) ALKALINE PHOSPHATASE, Routine 05/18/2022 11:18 Secondary Re sults for this S/P AM CDT Malignant Neoplasm procedure are in Liver (HCC) the results Medication Therapy section. Perinatal Director Not Anticoagulant Malignant Neoplasm Of Pancreas (HCC) MAGNESIUM, S Routine 05/18/2022 11:18 Secondary Results for this AM CDT Malignant Neoplasm procedure are in Liver (HCC) the results Medication Therapy section. Mcfp Not Anticoagulant Malignant Neoplasm Of Pancreas (HCC) BILIRUBIN, TOT, S/P Routine 05/18/2022 11:18 Secondary Resu lts for this AM CDT Malignant Neoplasm procedure are in Liver (HCC) the results Medication Therapy section. Mcfp Not Anticoagulant Malignant Neoplasm Of Pancreas (HCC) ALBUMIN, S/P Routine 05/18/2022 11:18 Secondary Results for this AM CDT Malignant Neoplasm procedure are in Liver (HCC) the results Medication Therapy section. Perinatal Director Not Anticoagulant Malignant Neoplasm Of Pancreas (HCC) BASIC METABOLIC PANEL, Routine 05/18/2022 11:18 Secondary R esults for this S/P AM CDT Malignant Neoplasm procedure are in Liver (HCC) the results Medication Therapy section. Mcfp Not Anticoagulant Malignant Neoplasm Of Pancreas (HCC) documented in this encounter Results Carbohydrate Antigen 19-9 (CA 19-9) (05/18/2022 11:18 AM CDT) athologist Signature Carbohydrate Ag 15 <35 U/mL 05/18/2022 [facility] 19-9, S 4:24 PM CDT Comment: ----ADDITIONAL INFORMATION---- The testing method is an immunoenzymatic assay manufactured by [employer]. and performed on the [employer] DxI 800. ? Values obtained with different [...] M.D. LAB BLOOD ADD-ON Performing Organization Address City/State/[facility] Code Phon e Number [facility] [address] [place], [place] [address] [facility] [place], [place] [id number] [place] [address] [place] (ABNORMAL) ALT (Alanine Aminotransferase) (05/18/2022 11:18 AM CDT) [facility] Method Time Signature Alanine 75 (H) 7 - 55 05/18/2022 DT Aminotransferase U/L 12:02 PM CDT (ALT), S Specimen Anatomical Collection Method Collection Time Receive d Time (Source) Location / / Volume Laterality Blood (Blood, 05/18/2022 11:18 05/18/2022 Venous) AM CDT 11:42 AM CDT Anya Glass APRN, C.N.PRiaz LAB BLOOD ADD-ON Performing Organization Address City/[facility] Code Phon e Number [facility] - [address] [place], [place] [address] [place], [place] [phone] [place] [address]-[facility] [address] AST (Aspartate Aminotransferase) (05/18/2022 11:18 AM CDT) Patholo gist Method Time Signature Aspartate 31 8 - 48 05/18/2022 [facility] Aminotransferase U/L 11:45 AM CDT (AST), P Specimen Anatomical Collection Method Collection Time Receive d Time (Source) Location / / Volume Laterality Blood (Blood, 05/18/2022 11:18 05/18/2022 Venous) AM CDT 11:25 AM CDT Anya Glass APRN, C.N.P. LAB BLOOD ADD-ON Performing Organization Address City/[facility]/ZIP Code Phon e Number [facility] - [address] [place]ETH [address] Bilirubin, Total (05/18/2022 11:18 AM CDT) P athologist Signature Bilirubin, 0.5 <=1.2 mg/dL 05/18/2022 [facility] Total, P 11:45 AM CDT Specimen Anatomical Collection Method Collection Time Receive d Time (Source) Location / / Volume Laterality Blood (Blood, 05/18/2022 11:18 05/18/2022 Venous) AM CDT 11:25 AM CDT Anya Glass APRN, C.N.P. LAB BLOOD ADD-ON Performing Organization Address City/[facility]/ZIP Code Phon e Number [facility] - [address] [place] [address] 05 [facility] METH [address] (ABNORMAL) Alkaline Phosphatase (05/18/2022 11:18 AM CDT) athologist Signature Alkaline 452 (H) 40 - 129 05/18/2022 DTL Phosphatase, S U/L 12:02 PM CDT Specimen Anatomical Collection Method Collection Time Receive d Time (Source) Location / / Volume Laterality Blood (Blood, 05/18/2022 11:18 05/18/2022 Venous) AM CDT 11:42 AM CDT Anya Glass APRN, C.N.P. LAB BLOOD ADD-ON Performing Organization Address City/State/ZIP Code Phon e Number [facility] - [address] [place] [address] 05 [facility] DTL [address] Magnesium (05/18/2022 11:18 AM CDT) athologist Signature Magnesium, S 2.0 1.7 - 2.3 05/18/2022 DTL mg/dL 12:02 PM CDT Specimen Anatomical Collection Method Collection Time Receive d Time (Source) Location / / Volume Laterality Blood (Blood, 05/18/2022 11:18 05/18/2022 Venous) AM CDT 11:42 AM CDT Anya Glass APRN, C.N.P. LAB BLOOD ADD-ON Performing Organization Address City/[facility] Code Phon e Number [facility] - [address] Phosphorus Inorganic (05/18/2022 11:18 AM CDT) athologist Signature Phosphorus 3.9 2.5 - 4.5 05/18/2022 DTL (Inorganic), S mg/dL 12:02 PM CDT Specimen Anatomical Collection Method Collection Time Receive d Time (Source) Location / / Volume Laterality Blood (Blood, 05/18/2022 11:18 05/18/2022 Venous) AM CDT 11:42 AM CDT Anya Glass APRN, C.N.P. LAB BLOOD ADD-ON Performing Organization Address City/[facility] Code Phon e Number [facility] - 200 [place], [place] [address] [place] [address] Albumin (05/18/2022 11:18 AM CDT) athologist Signature Albumin, S 3.9 3.5 - 5.0 05/18/2022 DTL g/dL 12:02 PM CDT Specimen Anatomical Collection Method Collection Time Receive d Time (Source) Location / / Volume Laterality Blood (Blood, 05/18/2022 11:18 05/18/2022 Venous) AM CDT 11:42 AM CDT Anya Glass APRN, C.N.P. LAB BLOOD ADD-ON Performing Organization Address City/State/ZIP Code Phon e Number [facility] - [address] [place] [id number] 05 [facility] [place] [address] [facility]-[address] (ABNORMAL) Basic Metabolic Panel (05/18/2022 11:18 AM CDT) P athologist Signature Potassium, P 3.6 3.6 - 5.2 05/18/2022 METH mmol/L 11:45 AM CDT Sodium, P 135 135 - 145 05/18/2022 M[facility] mmol/L 11:45 AM CDT Chloride, P 101 98 - 107 05/18/2022 M[facility] mmol/L 11:45 AM CDT Bicarbonate, P 24 22 - 29 05/18/2022 M[facility] mmol/L 11:45 AM CDT Anion Gap, P 10 7 - 15 05/18/2022 METH 11:45 AM CDT BUN (Blood Urea 12 8 - 24 05/18/2022 METH Nitrogen), P mg/dL 11:45 AM CDT Creatinine 0.78 0.74 - 05/18/2022 METH 1.35 mg/dL 11:45 AM CDT Estimated GFR >90 >=60 05/18/2022 M[facility] (eGFR) mL/min/BSA 11:45 AM CDT Comment: Estimated GFR calculated using the 2020 CKD_EPI creatinine equation. Calcium, Total, P 8.9 8.6 - 10.0 mg/dL 05/18/2022 11:4 5 AM CDT METH Glucose, P 185 (H) 70 - 140 mg/dL 05/18/2022 11:45 AM CDT METH Specimen Anatomical Collection Method Collection Time Receive d Time (Source) Location / / Volume Laterality Blood (Blood, 05/18/2022 11:18 05/18/2022 Venous) AM CDT 11:25 AM CDT Anya Glass APRN, C.N.P. LAB BLOOD ADD-ON Performing Organization Address City/State/ZIP Code Phon e Number [facility] - [address] [place], [place] [address] [facility] [place] [address] Laboratories-[facility] [address] [facility] (ABNORMAL) CBC with Differential, Blood (05/18/2022 11:18 AM CDT) [facility] Method Time Signature Hemoglobin 11.0 (L) 13.2 - 05/18/2022 DTL 16.6 g/dL 11:41 AM CDT Hematocrit 36.0 (L) 38.3 - 05/18/2022 DTL 48.6 % 11:41 AM CDT Erythrocytes 4.13 (L) 4.35 - 05/18/2022 DTL 5.65 11:41 AM CDT x10(12)/L MCV 87.2 78.2 - 05/18/2022 DTL 97.9 fL 11:41 AM CDT RBC Distrib Width 19.8 (H) 11.8 - 05/18/2022 DTL 14.5 % 11:41 AM CDT Platelet Count 211 135 - 317 05/18/2022 DTL x10(9)/L 11:41 AM CDT Leukocytes 4.6 3.4 - 9.6 05/18/2022 DTL x10(9)/L 11:41 AM CDT Neutrophils 3.25 1.56 - 05/18/2022 DTL 6.45 11:41 AM CDT x10(9)/L Lymphocytes 0.67 (L) 0.95 - 05/18/2022 DTL 3.07 11:41 AM CDT x10(9)/L Monocytes 0.44 0.26 - 05/18/2022 DTL 0.81 11:41 AM CDT x10(9)/L Eosinophils 0.20 0.03 - 05/18/2022 DTL 0.48 11:41 AM CDT x10(9)/L Basophils 0.03 0.01 - 05/18/2022 DTL 0.08 11:41 AM CDT x10(9)/L Specimen Anatomical Collection Method Collection Time Receive d Time (Source) Location / / Volume Laterality Blood (Blood, 05/18/2022 11:18 05/18/2022 Venous) AM CDT 11:29 AM CDT Anya Glass APRN, C.N.P. LAB BLOOD ADD-ON Performing Organization Address City/State/ZIP Code Phon e Number [facility] - [address] [place], [place] [address] [facility] [place] [address] Laboratories-[facility] [address] documented in this encounter Visit Diagnoses Diagnosis Secondary Malignant Neoplasm Liver (HCC) - Primary Medication Therapy Perinatal Director Not Anticoa gulant Malignant Neoplasm Of Pancreas (HCC) Bacteremia documented in this encounter Administered Medications Inactive Administered Medications - up to 3 most recent administrations Medication Order MAR Action Action Date Dose Rate Site heparin flush 500 Units Given 05/18/2022 11:22 AM CDT 500 Units 500 Units, intra-catheter, As needed, line care, Starting on Mon05/18/22 at 1101, When no infusion to maintain patency: For IVAD accessed, not in use, and/or prior to hospital discharge, flush every 7 days after 0.9% preservative-free NaCL flush. For IVAD NOT accessed or used, flush every 4 weeks after 0.9% preservative-free NaCL flush. sodium chloride 0.9 % injection 10 mL Given 05/18/2022 11:13 AM CDT 10 mL 10 mL, intra-catheter, As needed, line care, Starting on Mon05/18/22 at 1101, When IVAD Accessed and in Use: Flush prior to and following infusion, between multiple consecutive infusions, and prior to blood sampling. sodium chloride 0.9 % injection 20 mL Given 05/18/2022 11:22 AM CDT 20 mL 20 mL, intra-catheter, As needed, line care, Starting on Mon05/18/22 at 1101, When IVAD Accessed and in Use: Flush post blood transfusion or post blood sampling. documented in this encounter Additional Health Concerns Assessment Noted Time PHQ-9 Depression Total Score: 2 10/01/2021 10:34 AM CS T documented as of this encounter Care Teams Satellite Dish Technician Relationship Specialty Start Date End Date Elsewhere, Pcp PCP - General Family Medicine 08/12/20 documented as of this encounter
--- OUTSIDE RECORDS SUMMARY | 2022-06-18 16:00 | XMS_ITS | Encounter Summary ---
:1965 Author Organization [facility] Address [address] [place] [address] Care Team Providers Name Role Phone Elsewhere, Pcp Primary Care Provider Unavailable Reason for Visit Episode Based Medications (Routine) - Closed Specialty Diagnoses / Procedures Referred By Contact Refer red To Contact Diagnoses Malignant Neoplasm Of Pancreas (HCC) Secondary Malignant Neoplasm Liver (HCC) Medication Therapy Skilled Nursing Not Anticoagulant Jesse Perkins Rst Onc Rogo Procedures UT ONDANSETRON HCL INJECTION UT LEUCOVORIN CALCIUM INJECTION UT INJ IRINOTECAN LIPOSOME 1 MG UT FLUOROURACIL INJECTION P.A.-C., M.S. [address] [facility] [address] [place] [phone] Referral ID Status Reason Start Date Expiration Date Visits Requ ested Visits Authorized [id number] Closed 08/27/2021 08/27/2022 36 36 Encounter Details Date Type Department Care Team Description 05/18/2022 Infusion Department of Oncology Anya Glass Secondary Malignant Neoplasm Liver (HCC) (Primary Dx); in [facility] elke Sanchez APRN, C.N.P. Medication Therapy Nurse Researcher Not Anticoa gulant; [address] [facility] [address] [facility] Malignant Neoplasm Of Pancreas (HCC); [place], [place] Bacteremia [phone] (Wo rk) Social History Tobacco Use Types [...] How often do you attend alevism or advent services? 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 [address] [place] [phone] (Mj godoy) 06/22/2022 Infusion Oncology Maria Del Rosario Gomez APRN, C.N .P., M.S. [address] [place] [phone] (Mj godoy) 06/29/2022 Lab Laboratory Medicine Maria Del Rosario Gomez AP RN, C.N.P., M.S. [address] [place] [phone] (Mj godoy) 06/29/2022 Infusion Oncology Maria Del Rosario Gomez APRN, C.N .P., M.S. [address] [place] [phone] (Mj godoy) documented as of this encounter Visit Diagnoses Diagnosis Secondary Malignant Neoplasm Liver (HCC) - Primary Medication Therapy Skilled Nursing Not Anticoa gulant Malignant Neoplasm Of Pancreas (HCC) Bacteremia documented in this encounter Administered Medications Inactive Administered Medications - up to 3 most recent administrations Medication Order MAR Action Action Date Dose Rate Site dexAMETHasone injection 8 mg Given 05/18/2022 2:53 PM CDT 8 mg (DECADRON) 8 mg, intravenous, Once, On Mon05/18/22 at 1445, For 1 dose fluorouraciL 4,500 mg in NaCl 0.9% Given 05/18/2022 6:09 PM CDT 4,500 mg 5 mL/hr 230 mL IVPB (ADRUCIL) 4,500 mg (rounded from 4,536 mg = 2,400 mg/m2 ? 1.89 m2 Treatment Plan BSA from Measured weight), intravenous, at 5 mL/hr, Administer over 46 Hours, over 46 hours, First dose on Mon05/18/22 at 1645, For 1 dose, Continuous infusion over 46 hours immediately following Leucovorin. Dose reflects TOTAL CALCULATED DOSE to be administered via continuous infusion over the specified length of treatment. irinotecan liposomaL 86 mg in D5W New Bag 05/18/2022 3:49 PM C DT 86 mg 347 mL/hr 520 mL IVPB (ONIVYDE) 86 mg (rounded from 81.27 mg = 43 mg/m2 ? 1.89 m2 Treatment Plan BSA from Measured weight), intravenous, at 347 mL/hr, Administer over 90 Minutes, Once, On Mon05/18/22 at 1445, For 1 dose, Administer immediately following the administration of oral onvansertib. Protect from light. No in-line filter. leucovorin 750 mg in NaCl 0.9% New Bag 05/18/2022 5:37 PM CDT 750 mg 625 mL/hr 312.5 mL IVPB 750 mg (rounded from 756 mg = 400 mg/m2 ? 1.89 m2 Treatment Plan BSA from Measured weight), intravenous, at 625 mL/hr, Administer over 30 Minutes, Once, On Mon05/18/22 at 1615, For 1 dose, Follows irinotecan liposome. NaCl 0.9 % bolus 1,000 mL New Bag 05/18/2022 2:50 PM CDT 1,000 mL 1000 mL/hr 1,000 mL, intravenous, at 1,000 mL/hr, Administer over 1 Hours, Once, On Mon05/18/22 at 1445, For 1 dose ondansetron (PF) injection 8 mg (ZOFRAN) Given 05/18/2022 2:52 PM CDT 8 mg 8 mg, intravenous, Once, On Mon05/18/22 at 1445, For 1 dose [facility] [id number] onvansertib capsule 10 Given 3:44 PM CDT 10 mg mg (PCM-075) 10 mg, oral, Once, On Mon05/18/22 at 1445, For 1 dose, This is the 5 [...] prior to liposomal irinotecan Infusion. [facility] IR[facility] [id number] onvansertib capsule 20 Given 3:44 PM CDT 20 mg mg (PCM-075) 20 mg, oral, Once, On Mon05/18/22 at 1445, For 1 dose, This is the 20 [...] 0.9 % injection 10 mL Given 05/18/2022 2:52 PM CDT 10 mL 10 mL, intra-catheter, As needed, line care, Starting on Mon05/18/22 at 1444, When IVAD Accessed and in Use: Flush prior to and following infusion, between multiple consecutive infusions, and prior to blood sampling. documented in this encounter Additional Health Concerns Assessment Noted Time PHQ-9 Depression Total Score: 2 10/01/2021 10:34 AM CS T documented as of this encounter Care Teams Furniture Repairer Relationship Specialty Start Date End Date Elsewhere, Pcp PCP - General Family Medicine 08/12/20 documented as of this encounter
--- OUTSIDE RECORDS SUMMARY | 2022-06-18 16:00 | XMS_ITS | Encounter Summary ---
:1965 Author Organization [facility] Address [address] [place] [address] Care Team Providers Name Role Phone Elsewhere, Pcp Primary Care Provider Unavailable Encounter Details Date Type Department Care Team Description 05/18/2022 Orders Only Department of Oncology Marlin Kingston Medication Therapy Plug Assembler Not Anticoa gulant (Primary Dx); in [address] Secondary Malignant Neoplasm Liver (HCC) ; [place], [place] Malignant Neoplasm Of Pancre as (HCC) [address] [facility] [address] [place], [place] [phone] (Work) [phone] Social History Tobacco Use Types Packs/Day Years [...] er 01/15/2021 How often do you attend anglican or buddhism services? 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 [address] [place] [phone] (Wo rk) 06/22/2022 Infusion Oncology Maria Del Rosario Gomez APRN, C.N .P., M.S. [address] [place] [phone] (Wo rk) 06/29/2022 Lab Laboratory Medicine Maria Del Rosario Gomez AP RN, C.N.P., M.S. [address] [place] [phone] (Wo rk) 06/29/2022 Infusion Oncology Maria Del Rosario Gomez APRN, C.N .P., M.S. [address] [place] [phone] (Wo rk) documented as of this encounter Visit Diagnoses Diagnosis Medication Therapy Plug Assembler Not Anticoa gulant - Primary Secondary Malignant Neoplasm Liver (HCC) Malignant Neoplasm Of Pancreas (HCC) documented in this encounter Additional Health Concerns Infection Onset Date Last Indicated Resolved Time COVID19 Pending 06/01/2022 06/01/2022 06/02/2022 1:36 AM CDT Assessment Noted Time PHQ-9 Depression Total Score: 2 10/01/2021 10:34 AM CS T documented as of this encounter Care Teams Melter Operator Relationship Specialty Start Date End Date Elsewhere, Pcp PCP - General Family Medicine 08/12/20 documented as of this encounter
--- OUTSIDE RECORDS SUMMARY | 2022-06-18 16:00 | XMS_ITS | Encounter Summary ---
:1965 Author Organization [facility] Address [address] [place] [address] Care Team Providers Name Role Phone Elsewhere, Pcp Primary Care Provider Unavailable Reason for Referral Outpatient (Routine) - Closed Specialty Diagnoses / Procedures Referred By Contact Refer red To Contact Oncology Maria Del Rosario Gomez APRN C.N.P.[facility] [address] [place] [phone] Referral ID Status Reason Start Date Expiration Date Visits Requ ested Visits Authorized [id number] Closed 05/30/2022 05/29/2025 1 1 Reason for Visit Reason Comments Follow up Encounter Details Date Type Department Care Team Description 05/27/2022 Clinical Communication Department of Rosie Blanton Follow up Oncology in R, M.S.Carlos., R.N. [place], [place] [address] [place] [address] [address] [place] [phone] [phone] Social History Tobacco Use Types Packs/Day Years [...] How often do you attend shinto or jehovah's witness services? 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 - 05/30/2022 9:12 AM CDT Addended by: VY PARRY on: 05/30/2022 09:12 AM Modules accepted: Orders Telephone Encounter - Vy Parry R.N. - 05/30/2022 8:42 AM CDT ASSESSMENT I called Mr. Campbell. He reports, despite eating slow and small, frequent meals over the weekend, he continues to have gurgling and gas pains after eating. He did have one large emesis this weekend. Heis having intermittent nausea. This nausea is preventing him from wanting to eat, for fear of vomiting. He is staying well hydrated. He is having regular bowel movements. His most recent being yesterday. When taking hydromorphone for pain, he is taking Senna-S as well, to promote a bowel movement. He reports having these symptoms before, prior to requiring a stent exchange. His next ERCP is scheduledfor June 03. He denies any fevers, but is having chills. He will be freezing for a few minutes, crawl under some blankets, and become over-heated. Denies any jaundice. PLAN Per discussion with Maria Del Rosario Gomez NP, will plan to have labs drawn, and see in Acute Care. He is hopeful that we can move up the ERCP. However, I shared it would be pertinent to see his lab values and in person evaluation to help make best decisions. Of note, he is interested in a prescription of Zofran ODT. Disposition/Recommendation: referral for services Acute Care Clinic . Information/Education: patient/caller able to teach back. Caller agreeable to plan of care: yes. The following references were used: nursing clinical judgement. Telephone Encounter - Herminia Knott - 05/30/2022 8:03 AM CDT Patient calls to give an update over the weekend. He states that he has been trying to eat small meals to keep everything down but he did vomit pretty good one day this weekend. He thinks that his tube is clogged pretty good and is wondering if he should be seen sooner? He states that these symptoms usually occur when his tube is clogged. He did not give any further information. Please call patient when available. Thank you, Angelita LUNAT ONC [facility] POD 1 Telephone Encounter - Diana Blanton M.SJohn., R.N. - 05/27/2022 5:16 PM CDT May need acute care visit 05/30 if symptoms not resolved Telephone Encounter - Diana Blanton M.S.N., R.N. - 05/27/2022 5:12 PM CDT SUBJECTIVE CHIEF COMPLAINT / REASON FOR CALL No chief complaint on file. ASSESSMENT I received a call from Mr. Campbell. He is in severe pain after he eats. He also experiences gas and burping. He takes his creon and his hydromorphone, but they do not help very much with the pain. After discussion with Maria Del Rosario Gomez, I let Mr. Campbell know that if he experiences more severe unrelieved symptoms over the weekend, he should go to the emergency room. He should focus on high calorie protein foods. He should try taking his pain medicine every 6 hours and see if that helps with his pain. Mr. Campbell agreed to call us Monday morning if his symptoms are not resolved. PLAN Disposition/Recommendation: self-care is appropriate at this time, patient encouraged to call back with questions. Information/Education: patient/caller able to teach back. Caller agreeable to plan of care: yes. The following references were used: nursing clinical judgement. documented in this encounter Plan of Treatment Upcoming Encounters Date Type Specialty Care Team Description 06/22/2022 Lab Laboratory Medicine Maria Del Rosario Gomez AP RN, C.N.P., M.S. [address] [place] [phone] ( jayne) 06/22/2022 Infusion Oncology Maria Del Rosario Gomez APRN, C.N .P., M.S. [address] [place] [address] [phone] (Mj godoy) 06/29/2022 Lab Laboratory Medicine Maria Del Rosario Gomez AP RN, C.N.P., M.S. [address] [place] [address] [phone] (Mj godoy) 06/29/2022 Infusion Oncology Maria Del Rosario Gomez APRN C.N .P., M.S. [address] [place] [address] [phone] ( jayne) Scheduled Referrals Name Type Priority Associated Order Schedule Diagnoses Oncology office Outpatient Referral Routine Expec sally: visit (clinic) 05/30/2022, General; GIH Expires: Pancreatic 08/29/2023 documented as of this encounter Results (ABNORMAL) Comprehensive Metabolic Panel [...] Organization Address City/State/ZIP Code Phon e Number [facility] - 200 [place], [place] [address] [facility] [place] [address] [facility] [address] [facility] (ABNORMAL) CBC with Differential, Blood (05/30/2022 12:44 PM CDT) [facility] Method Time Signature Hemoglobin 11.3 (L) [...] 05/30/2022 1:01 Venous) PM CDT PM CDT Pratik Willson APRNN.Pamela., M.S. LAB BLOOD ADD-ON Performing Organization Address City/State/[facility] Code Phon e Number [facility] - [address] [place], [place] [address] [facility] [place] [address] [facility] [address] documented in this encounter Visit Diagnoses Diagnosis Malignant Neoplasm Of Pancreas (HCC) - P rimary documented in this encounter Additional Health Concerns Assessment Noted Time PHQ-9 Depression Total Score: 2 10/01/2021 10:34 AM CS T documented as of this encounter Care Teams Director Decision Support Relationship Specialty Start Date End Date Elsewhere, Pcp PCP - General Family Medicine 08/12/20 documented as of this encounter
--- OUTSIDE RECORDS SUMMARY | 2022-06-18 16:00 | XMS_ITS | Encounter Summary ---
:1965 Author Organization [facility] Address [address] [place] [address] Care Team Providers Name Role Phone Elsewhere, Pcp Primary Care Provider Unavailable Reason for Visit Reason Comments Outpatient Infusion Hydration Episode Based Medications (Routine) - Closed Specialty Diagnoses / Procedures Referred By Contact Refer red To Contact Diagnoses Dehydration Charline Starr, Rst Onc Rogo Procedures Hydration [facility] [address] [place] [address] [place] [phone] [place] [address] Referral ID Status Reason Start Date Expiration Date Visits Requ ested Visits Authorized [id number] Closed 05/30/2022 05/30/2023 99 99 Encounter Details Date Type Department Care Team Description 05/30/2022 Infusion Department of Infusion Charline Starr Dehydration (Primary Dx); Therapy in [facility] Sandra, GUERO C.N.PRiaz, Ba j carlos [facility] [place] [address] [place] [address] [address] [place] [phone] (Wo rk) Social History Tobacco Use Types [...] er 01/15/2021 How often do you attend rastafari or advent services? Never 01/15/2021 Do you belong to any clubs or organizations such as rastafari N o 01/15/2021 groups, unions, fraternal or [...] place to sleep or slept in a skilled nursing (including now)? Education Answer Date Recorded What is the highest level of school you have completed or 12 th grade 01/15/2021 the highest degree you have received? 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 [address] [place] [phone] (Mj godoy) 06/22/2022 Infusion Oncology Maria Del Rosario Gomez APRN, C.N .P., M.S. [address] [place] [phone] (Mj godoy) 06/29/2022 Lab Laboratory Medicine Maria Del Rosario Gomez AP RN, C.N.P., M.S. [address] [place] [phone] (Mj godoy) 06/29/2022 Infusion Oncology Maria Del Rosario Gomez APRN, C.N .P., M.S. [address] [place], [place] [phone] (Wo rk) documented as of this encounter Visit Diagnoses Diagnosis Dehydration - Primary Bacteremia documented in this encounter Administered Medications Inactive Administered Medications - up to 3 most recent administrations Medication Order MAR Action Action Date Dose Rate Site heparin flush 500 Units Given 05/30/2022 3:45 PM CDT 500 Units 500 Units, intra-catheter, As needed, line care, Starting on Mon05/30/22 at 1432, When no infusion to maintain patency: For IVAD accessed, not in use, and/or prior to hospital discharge, flush every 7 days after 0.9% preservative-free NaCL flush. For IVAD NOT accessed or used, flush every 4 weeks after 0.9% preservative-free NaCL flush. NaCl 0.9 % bolus 1,000 mL New Bag 05/30/2022 2:40 PM CDT 1,000 mL 1000 mL/hr 1,000 mL, intravenous, at 1,000 mL/hr, Administer over 1 Hours, Once, On Mon05/30/22 at 1445, For 1 dose sodium chloride 0.9 % injection 10 mL Given 05/30/2022 3:45 PM CDT 10 mL 10 mL, intra-catheter, As needed, line care, Starting on Mon05/30/22 at 1432, When IVAD Accessed and in Use: Flush prior to and following infusion, between multiple consecutive infusions, and prior to blood sampling. Given 05/30/2022 2:40 PM CDT 10 mL documented in this encounter Additional Health Concerns Assessment Noted Time PHQ-9 Depression Total Score: 2 10/01/2021 10:34 AM CS T documented as of this encounter Care Teams School Secretary Relationship Specialty Start Date End Date Elsewhere, Pcp PCP - General Family Medicine 08/12/20 documented as of this encounter
--- OUTSIDE RECORDS SUMMARY | 2022-06-18 16:00 | XMS_ITS | Encounter Summary ---
:[address] [facility] Address [address] [place] [address] Care Team Providers Name Role Phone Elsewhere, Pcp Primary Care Provider Unavailable Reason for Referral Outpatient (Routine) - Authorized Specialty Diagnoses / Procedures Referred By Contact Refer red To Contact Diagnoses Secondary Malignant Neoplasm Liver (HCC) Malignant Neoplasm Of Pancreas (HCC) Wes Mantilla M.D. [facility] Procedures ERCP [address] [place] [phone] Referral ID Status Reason Start Date Expiration Date Visits V isits Requested Authorized [id number] Authorized 05/18/2022 05/18/2023 1 1 Reason for Visit Episode Based Medications (Routine) - Closed Specialty Diagnoses / Procedures Referred By Contact Refer red To Contact Diagnoses Malignant Neoplasm Of Pancreas (HCC) Secondary Malignant Neoplasm Liver (HCC) Medication Therapy Can Slider Not Anticoagulant Jesse Perkins, Rst Onc Rogo Procedures MI ONDANSETRON HCL INJECTION MI LEUCOVORIN CALCIUM INJECTION MI INJ IRINOTECAN LIPOSOME 1 MG MI FLUOROURACIL INJECTION P.A.-C., M.S. [address] [facility] [address] [place] [phone] Referral ID Status Reason Start Date Expiration Date Visits Requ ested Visits Authorized [id number] Closed 08/27/2021 08/27/2022 36 36 Encounter Details Date Type Department Care Team Description 05/18/2022 Office Visit Department of Oncology Wes Mantilla Se Malignant Neoplasm Liver (HCC) (Primary Dx); in Randall Perdomo M.D. Medication Therapy Care Home Not Anticoa gukendallt; [place] 200 [facility] Malignant Neoplasm Of Pancreas (HCC) 200 [place] [phone] Social History Tobacco Use Types Packs/Day Years [...] er 01/15/2021 How often do you attend orthodox or hinduism services? 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 - 05/18/2022 1:20 PM CDT SUBJECTIVE Evaluation of tolerance of therapy and discussion of next steps in care PRIMARY CARE PHYSICIAN ELSEWHERE, PCP LOCAL ONCOLOGIST No care sample steamer to display PRIMARY TYLER ONCOLOGIST Deborah Murray M.B.B.S. Maria Del Rosario Gomez APRN C.N.Pamela., M.S. CHIEF COMPLAINT / REASON FOR VISIT [...] (01/25/2021 - 03/02/2021) Site: Pancreas Technique: 3D CAKE TESTER Goal: Curative Planned Treatment Start Date: 01/25/2021 [...] in Patients with Metastatic Pancreatic Ductal Adenocarcinoma ([id number]) Treatment Protocol: [facility] CRDF-001 ( Onvansertib (Days 1-10) / Fluorouracil / Leucovorin / Nanoliposomal Irinotecan ) Mr. Campbell is seen in follow-up of his ongoing therapy for his pancreatic cancer. Mr. Campbell notes that since he was last here having a more prolonged break from chemotherapy has allowed him to feel progressively better. He notes that his ability to taste food has recovered. He has also noted some beginning resolution of some of his alopecia. He notes no new or different symptoms. As with prior cycles he did note proximally one day of more profound fatigue. In addition he has noted that with the gabapentin he has had some restless legs at nighttime. The use of baclofen has provided excellent control of his restless legs syndrome. He also notes that with the continued use Protonix he is had no problems with any dyspepsia or other abdominal symptoms. The following portions of the patient's history were reviewed and updated as appropriate: allergies,current medications, medical history, and problem list. REVIEW OF SYSTEMS No recent fever or flu-like illnesses OBJECTIVE BP 113/71 (BP Location: Right arm, Patient Position: Sitting, Cuff Size: Regular) Pulse 87 Temp 36.1 ??C (Tympanic) Resp 16 Ht 176.6 cm Wt 73.2 kg SpO2 94% BMI 23.47 kg/m?? Rate your distress: 3 PHYSICAL EXAM ECOG Score: 0 - asymptomatic General: Alert and oriented, in no acute distress. Moderate alopecia. Lymph: No palpable cervical, supraclavicular, axillary, umbilical, or inguinal lymphadenopathy. Heart: Regular rate and rhythm. Lungs: Clear to auscultation bilaterally. Abdomen: Soft, non-tender, non-distended. Extremities: Without edema. LABORATORY DATA Lab data reviewed. RADIOLOGICAL DATA Radiology data reviewed. ASSESSMENT / PLAN #1 Secondary Malignant Neoplasm Liver (HCC) #2 Medication Therapy Care Home Not Anticoagulant #3 Malignant Neoplasm Of Pancreas (HCC) Mr. Campbell is seen in follow-up of his ongoing therapy for his pancreatic cancer. Overall he continues to do well clinically. On his evaluation today there are no findings that would alter the current plan of care. His laboratory tests are all within acceptable parameters to proceed with treatment as per the study protocol. However, there is some mild elevation of his LFTs that may reflect some mild obstruction of his stent. For that reason I will plan to set up an ERCP following his next visit should it be needed. PATIENT EDUCATION Ready to learn, no apparent learning barriers were identified; learning preferences include listening. Explained diagnosis and treatment plan; patient expressed understanding of the content. ADMINISTRATIVE BILLING I personally spent 20 minutes in care of the patient today. Time includes both non face to face and face to face patient care. documented in this encounter Plan of Treatment Upcoming Encounters Date Type Specialty Care Team Description 06/22/2022 Lab Laboratory Medicine Maria Del Rosario Gomez AP RN, C.N.P., M.S. [address] [place] [phone] (Mj godoy) 06/22/2022 Infusion Oncology Maria Del Rosario Gomez APRN, C.N .P., M.S. [address] [place] [phone] (Mj godoy) 06/29/2022 Lab Laboratory Medicine Maria Del Rosario Gomez AP RN, C.N.P., M.S. [address] [place] [address] [phone] (Mj godoy) 06/29/2022 Infusion Oncology Maria Del Rosario Gomez APRN, C.N .P., M.S. [address] [place], [place] [phone] (Wo rk) Scheduled Orders Name Type Priority Associated Diagnoses Order S chedule ERCP GI Routine Secondary Malignant Neoplasm Liver Expected: 06/02/2022, Expires: (HCC) 08/17/2023 Malignant Neoplasm Of Pancre as (HCC) documented as of this encounter Visit Diagnoses Diagnosis Secondary Malignant Neoplasm Liver (HCC) - Primary Medication Therapy Can Slider Not Anticoa gulant Malignant Neoplasm Of Pancreas (HCC) documented in this encounter Additional Health Concerns Assessment Noted Time PHQ-9 Depression Total Score: 2 10/01/2021 10:34 AM CS T documented as of this encounter Care Teams Liner 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
--- OUTSIDE RECORDS SUMMARY | 2022-06-18 16:00 | XMS_ITS | Encounter Summary ---
:1965 Author Organization [facility] Address [address] [place] [address] Care Team Providers Name Role Phone Elsewhere, Pcp Primary Care Provider Unavailable Encounter Details Date Type Department Care Team Description 05/20/2022 Orders Only Department of Oncology Marlin Kingston Medication Therapy Twill Cutter Not Anticoa gulant (Primary Dx); in [address] Secondary Malignant Neoplasm Liver (HCC) ; [place], [place] Malignant Neoplasm Of Pancre as (HCC) [address] [facility] [address] [place], [place] [phone] (Work) [phone] Social History Tobacco Use Types Packs/Day Years [...] How often do you attend jainism or methodist services? 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 [address] [place] [phone] (Wo rk) 06/22/2022 Infusion Oncology Maria Del Rosario Gomez APRN, C.N .P., M.S. [address] [place] [address] [phone] (Wo rk) 06/29/2022 Lab Laboratory Medicine Maria Del Rosario Gomez AP RN, C.N.P., M.S. [address] [place] [address] [phone] (Wo rk) 06/29/2022 Infusion Oncology Maria Del Rosario Gomez APRN, C.N .P., M.S. [address] [place] [address] [phone] (Wo rk) documented as of this encounter Visit Diagnoses Diagnosis Medication Therapy Twill Cutter Not Anticoa gulant - Primary Secondary Malignant Neoplasm Liver (HCC) Malignant Neoplasm Of Pancreas (HCC) documented in this encounter Additional Health Concerns Infection Onset Date Last Indicated Resolved Time COVID19 Pending 06/01/2022 06/01/2022 06/02/2022 1:36 AM CDT Assessment Noted Time PHQ-9 Depression Total Score: 2 10/01/2021 10:34 AM CS T documented as of this encounter Care Teams Golf Ball Cover Treater Relationship Specialty Start Date End Date Elsewhere, Pcp PCP - General Family Medicine 08/12/20 documented as of this encounter
--- OUTSIDE RECORDS SUMMARY | 2022-06-18 16:00 | XMS_ITS | Encounter Summary ---
:1965 Author Organization [facility] Address [address] [place] [address] Care Team Providers Name Role Phone Elsewhere, Pcp Primary Care Provider Unavailable Reason for Visit Reason Comments Med Refill Creon Encounter Details Date Type Department Care Team Description 05/22/2022 [facility] [place], [place] GUERO C.N.P., M.S. [address] [facility] [address] [place] [phone] [place], [place] [phone] (Wo rk) Social History Tobacco Use Types [...] er 01/15/2021 How often do you attend anabaptism or shinto services? 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 - 05/23/2022 8:27 AM CDT Surescripts created refill request. documented in this encounter Plan of Treatment Upcoming Encounters Date Type Specialty Care Team Description 06/22/2022 Lab Laboratory Medicine Maria Del Rosario Gomez AP RN, C.N.P., M.S. [address] [place] [phone] (Mj rk) 06/22/2022 Infusion Oncology Maria Del Rosario Gomez APRN, C.N .P., M.S. [address] [place] [address] [phone] (Wo rk) 06/29/2022 Lab Laboratory Medicine Maria Del Rosario Gomez AP RN, C.N.P., M.S. [address] [place] [address] [phone] (Wo rk) 06/29/2022 Infusion Oncology Maria Del Rosario Gomez APRN, C.N .P., M.S. [address] [place] [address] [phone] (Wo rk) documented as of this encounter Visit Diagnoses Not on filedocumented in this encounter Additional Health Concerns Assessment Noted Time PHQ-9 Depression Total Score: 2 10/01/2021 10:34 AM CS T documented as of this encounter Care Teams Printing Machine Mechanic Relationship Specialty Start Date End Date Elsewhere, Pcp PCP - General Family Medicine 08/12/20 documented as of this encounter
--- OUTSIDE RECORDS SUMMARY | 2022-06-18 16:00 | XMS_ITS | Encounter Summary ---
:1965 Author Organization [facility] Address [address] [place] [address] Care Team Providers Name Role Phone Elsewhere, Pcp Primary Care Provider Unavailable Reason for Referral MRI/CAT/PET Scan (Routine) - Closed Specialty Diagnoses / Procedures Referred By Contact Refer red To Contact Radiology Diagnoses Malignant Neoplasm Of Pancreas (HCC) Vladislav Zarco M.D. [facility] Procedures CT Abdomen Pelvis with IV Contrast [address] [place] [address] Referral ID Status Reason Start Date Expiration Date Visits Requ ested Visits Authorized [id number] Closed 04/07/2022 04/07/2023 1 1 MRI/CAT/PET Scan (Routine) - Closed Specialty Diagnoses / Procedures Referred By Contact Refer red To Contact Radiology Diagnoses Malignant Neoplasm Of Pancreas (HCC) Vladislav Zarco M.D. [facility] Procedures CT Chest with IV Contrast [address] [place] [address] Referral ID Status Reason Start Date Expiration Date Visits Requ ested Visits Authorized [id number] Closed 04/07/2022 04/07/2023 1 1 Reason for Visit Auth/Cert Specialty Diagnoses / Procedures Referred By Contact Refer red To Contact Diagnoses Malignant Neoplasm Of Pancreas Body (HCC) Abdominal Pain Procedures ETU Referral ID Status Reason Start Date Expiration Date Visits Requ ested Visits Authorized [id number] 1 1 Encounter Details Date Type Department Care Team Description 06/01/2022 Hospital Encounter Department of Jose Zarco Neoplasm Radiology, Hernan Pereira M.D. Of Pancreas (HCC) Building, in [address] [place] [address] [place] [id number] [place], [place] [phone] (Work) [phone] Social History Tobacco Use Types Packs/Day Years [...] er 01/15/2021 How often do you attend advent or hinduism services? Never 01/15/2021 Do you belong to any clubs or organizations such as advent N o 01/15/2021 groups, unions, fraternal or [...] pay for the very basics like Not viraj toro hard 01/15/2021 food, housing, medical care, and [...] place to sleep or slept in a alf (including now)? Education Answer Date Recorded What is the highest level of school you have completed or 12 th grade 01/15/2021 the highest degree you have received? 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 THC component: 0 capsule CBD component: OLANZapine (ZyPREXA) 5 Take 1 tablet (5 [...] times a day before breakfast and dinner. polyethylene glycol Take 1 packet (17 g [...] 4-6 of 10 Indication: Chronic Pain/Nonacute Pain. HYDROmorphone Take 0.5-1 tablets 60 tablet 0 05/26/2022 (DILAUDID) 4 mg (2-4 mg total) by tabletIndications: mouth every 6 (six) Chronic Pain/Nonacute hours as needed for Pain pain Indication: Chronic Pain/Nonacute Pain. LORazepam (ATIVAN) 0.5 TAKE 1 TABLET(0.5 10 tablet 2 202106/06/2022 mg tablet MG) BY MOUTH EVERY 6 HOURS NEEDED FOR ANXIETY documented as of this encounter Nursing Notes Hamzah العلي R.N. - 06/01/2022 7:00 AM CDT IVAD Contrast Injection Assessment Details: What type of IVAD? Bard Power Port If power???What identifiers were used (2 needed or Rad approval)? ID Card, Macdonald Chain, or bracelet and Huerta or Outside medical record (Date 11/05/20) Tip placement verified? Location: svc/ra Date (if applicable): 03/08/22 Blood return verified? Yes VAPP Orders (Nurse to use Saline or Heparin post scan): heparin and saline Is patient staying accessed after scan? Yes ' documented in this encounter Plan of Treatment Upcoming Encounters Date Type Specialty Care Team Description 06/22/2022 Lab Laboratory Medicine Maria Del Rosario Gomez AP RN, C.N.P., M.S. [address] [place] [phone] ([place] god[place]) 06/22/2022 Infusion Oncology Maria Del Rosario Gomez APRN, C.N .P., M.S. [address] [place] [phone] ([place] godoy) 06/29/2022 Lab Laboratory Medicine Maria Del Rosario Gomez AP RN, C.N.P., M.S. [address] [place] [phone] ([place] godoy) 06/29/2022 Infusion Oncology Maria Del Rosario Gomez APRN, C.N .P., M.S. [address] [place] [phone] ([place] godoy) documented as of this encounter Procedures Procedure Name Priority Date/Time Associated Comments Diagnosis CT ABDOMEN PELVIS RAD - Routine 06/01/2022 7:27 Malignant Result s for this WITH IV CONTRAST (most inpatients AM CDT Neoplasm Of procedu re are in and all Pancreas (HCC) the results outpatients) section. CT CHEST WITH IV RAD - Routine 06/01/2022 7:27 Malignant Results for this CONTRAST (most inpatients AM CDT Neoplasm Of procedure a re in and all Pancreas (HCC) the results outpatients) section. documented in this encounter Results CT Abdomen Pelvis with IV Contrast (06/01/2022 [...] That study is reported separatel y. COMPARISON: [facility] examinations fro m 03/08/2022, 01/06/2022, and 11/03/2021. [...] That study is reported separatel y. COMPARISON: [facility] examinations fro 03/08/2022, 01/06/2022, and 11/03/2021. FINDINGS: [...] for metastatic disease. Vladislav WONG CT PROCEDURES documented in this encounter Visit Diagnoses Diagnosis Malignant Neoplasm Of Pancreas (HCC) documented in this encounter Administered Medications Inactive Administered Medications - up to 3 most recent administrations Medication Order MAR Action Action Date Dose Rate Site heparin flush 500 Units Given 06/01/2022 7:27 AM CDT 500 Units 500 Units, intra-catheter, During hospitalization, line care, Prior to discharge, Starting on Mon06/01/22 at 0643, For 1 dose, Implanted Vascular Access Device (IVAD) Venous Non-Valved: Following saline flush prior to discharge. iohexoL 350 mg iodine/mL solution 1-200 mL Given 06/01/2022 7:12 AM CDT 140 mL (OMNIPAQUE) 1-200 mL, intravenous, Once in imaging, contrast, Starting on Mon06/01/22 at 0634, For 1 dose, Imaging Protocol Orders, Dose per Radiant Medication Guidelines sodium chloride (PF) 0.9 % injection 1-1 00 mL Given 06/01/2022 7:12 AM CDT 50 mL 1-100 mL, intravenous, Once, On Mon06/01/22 at 0645, For 1 dose, Imaging Protocol Orders sodium chloride 0.9 % injection 10 mL Given 06/01/2022 7:27 AM CDT 10 mL 10 mL, intravenous, As needed, line care, Implanted Vascular Access Device (IVAD) Venous Non-Valved, Starting on Mon06/01/22 at 0643, Prior to and following infusion, between multiple consecutive infusions, and prior to blood sampling, documented in this encounter Additional Health Concerns Assessment Noted Time PHQ-9 Depression Total Score: 2 10/01/2021 10:34 AM CS T documented as of this encounter Care Teams Scheduling Representative Relationship Specialty Start Date End Date Elsewhere, Pcp PCP - General Family Medicine 08/12/20 documented as of this encounter
--- OUTSIDE RECORDS SUMMARY | 2022-06-18 16:01 | XMS_ITS | Encounter Summary ---
:1965 Author Organization [facility] Address [address] [place] [address] Care Team Providers Name Role Phone Elsewhere, Pcp Primary Care Provider Unavailable Reason for Referral Outpatient (Routine) Specialty Diagnoses / Procedures Referred By Contact Refer red To Contact Oncology RST [facility] [address] [place] [address] Referral ID Status Reason Start Date Expiration Date Visits Requ ested Visits Authorized Scheduling Instructions Anya Bentley or someone on her care team for 06/01--labs prior RI/CAT/PET Scan (Routine) - Closed Specialty Diagnoses / Procedures Referred By Contact Refer red To Contact Radiology Diagnoses Malignant Neoplasm Of Pancreas (HCC) Vladislav Zarco M.D. [facility] Procedures CT Abdomen Pelvis with IV Contrast [address] [place] [phone] Referral ID Status Reason Start Date Expiration Date Visits Requ ested Visits Authorized [id number] Closed 04/07/2022 04/07/2023 1 1 MRI/CAT/PET Scan (Routine) - Closed Specialty Diagnoses / Procedures Referred By Contact Refer red To Contact Radiology Diagnoses Malignant Neoplasm Of Pancreas (HCC) Vladislav Zarco M.D. [facility] Procedures CT Chest with IV Contrast [address] [place] [phone] Referral ID Status Reason Start Date Expiration Date Visits Requ ested Visits Authorized [id number] Closed 04/07/2022 04/07/2023 1 1 Outpatient (Routine) Specialty Diagnoses / Procedures Referred By Contact Refer red To Contact Oncology [facility]ST [facility] [address] [place] [address] Referral ID Status Reason Start Date Expiration Date Visits Requ ested Visits Authorized Scheduling Instructions Anya Glass or someone in care félix garcia On 05/18 w/ labs and scans prior Encounter Details Date Type Department Care Team Description 04/07/2022 Orders Only Department of Oncology Imelda Mir ication Therapy Treasury Agent Not Anticoagulant (Primary Dx); in [facility], CCRP Secondary Malignant Neoplasm Liver (HCC) ; [place] [address] [place] Malignant Neoplasm Of Pancreas (HCC) [address] [place] [phone] Social History Tobacco Use Types Packs/Day Years [...] er 01/15/2021 How often do you attend orthodoxy or taoism services? 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 [address] [place] [phone] ([place] god[place]) 06/22/2022 Infusion Oncology Maria Del Rosario Gomez APRN, C.N .P., M.S. [address] [place] [phone] ([place] godoy) 06/29/2022 Lab Laboratory Medicine Maria Del Rosario Gomez AP RN, C.N.P., M.S. [address] [place] [phone] ([place] godoy) 06/29/2022 Infusion Oncology Maria Del Rosario Gomez APRN, C.N .P., M.S. [address] [place] [phone] ([place] god[place]) Scheduled Orders Name Type Priority Associated Diagnoses Order S chedule Miscellaneous Research, B Lab Routine Secondary Malig nant Expected: 06/15/2022, Neoplasm Liver ( HCC) Expires: 09/15/2023 Medication Therapy Treasury Agent Not Anticoa gulant Malignant Neoplasm Of Pancreas (HCC) Scheduled Referrals Name Type Priority Associated Order Schedule Diagnoses Oncology office Outpatient Referral Routine Secondary Malignan t Expected: visit (clinic) Neoplasm Liver 06/01/2022, General; GIH (HCC) Expires: Pancreatic Medication Therapy 3 Fdc Not Anticoagulant Malignant Neoplasm Of Pancreas (HCC) Oncology office Outpatient Referral Routine Secondary Malignan t Expected: visit (clinic) Neoplasm Liver 06/15/2022, General; GIH (HCC) Expires: Pancreatic Medication Therapy 3 Fdc Not Anticoagulant Malignant Neoplasm Of Pancreas (HCC) documented as of this encounter Results ALT (Alanine Aminotransferase) (06/01/2022 8:34 AM CDT) [facility] Method Time Signature Alanine 51 7 - 55 06/01/2022 DTL Aminotransferase U/L 9:32 AM CDT (ALT), S Specimen Anatomical Collection Method Collection Time Receive d Time (Source) Location / / Volume Laterality Blood (Blood, 06/01/2022 8:34 AM 06/01/20 9:12 Venous) CDT AM CDT Anya Glass APRN, Remy.N.P. LAB BLOOD ADD-ON Performing Organization Address City/[facility]/ZIP Code Phon e Number [facility] - 200 [place], [place] [address] [facility] DTL [address] AST (Aspartate Aminotransferase) (06/01/2022 8:34 AM CDT) [facility] Method Time Signature Aspartate 19 8 - 48 06/01/2022 METH Aminotransferase U/L 9:27 AM CDT (AST), P Specimen Anatomical Collection Method Collection Time Receive d Time (Source) Location / / Volume Laterality Blood (Blood, 06/01/2022 8:34 AM 06/01/20 8:53 Venous) CDT AM CDT Anya Glass APRN, Remy.N.P. LAB BLOOD ADD-ON Performing Organization Address City/[facility]/ZIP Code Phon e Number [facility] - [address] [place], [place] [address] [facility] [place] [address] Bilirubin, Total (06/01/2022 8:34 AM CDT) P athologist Signature Bilirubin, 0.7 <=1.2 mg/dL 06/01/2022 METH Total, P 9:27 AM CDT Specimen Anatomical Collection Method Collection Time Receive d Time (Source) Location / / Volume Laterality Blood (Blood, 06/01/2022 8:34 AM 06/01/20 8:53 Venous) CDT AM CDT Anya Glass APRN, Remy.N.P. LAB BLOOD ADD-ON Performing Organization Address City/State/ZIP Code Phon e Number [facility] - 200 [place], [place] [address] [facility] [place] [address] [facility] 200 [facility] (ABNORMAL) Alkaline Phosphatase (06/01/2022 8:34 AM CDT) athologist Signature Alkaline 289 (H) 40 - 129 06/01/2022 DTL Phosphatase, S U/L 9:32 AM CDT Specimen Anatomical Collection Method Collection Time Receive d Time (Source) Location / / Volume Laterality Blood (Blood, 06/01/2022 8:34 AM 06/01/20 9:12 Venous) CDT AM CDT Anya Glass APRN, C.N.P. LAB BLOOD ADD-ON Performing Organization Address City/[facility] Phon e Number [facility] - 200 [place], [place] [address] [place] [id number] Magnesium (06/01/2022 8:34 AM CDT) athologist Signature Magnesium, S 1.9 1.7 - 2.3 06/01/2022 DTL mg/dL 9:32 AM CDT Specimen Anatomical Collection Method Collection Time Receive d Time (Source) Location / / Volume Laterality Blood (Blood, 06/01/2022 8:34 AM 06/01/20 9:12 Venous) CDT AM CDT Anya Glass APRN, C.N.P. LAB BLOOD ADD-ON Performing Organization Address City/State/[facility] Code Phon e Number [facility] - [address] [place], [place] [address] [place] [address] Phosphorus Inorganic (06/01/2022 8:34 AM CDT) athologist Signature Phosphorus 3.6 2.5 - 4.5 06/01/2022 DTL (Inorganic), S mg/dL 9:32 AM CDT Specimen Anatomical Collection Method Collection Time Receive d Time (Source) Location / / Volume Laterality Blood (Blood, 06/01/2022 8:34 AM 06/01/20 9:12 Venous) CDT AM CDT Anya Glass APRN, C.N.P. LAB BLOOD ADD-ON Performing Organization Address City/[facility] Phon e Number [facility] - [address] Albumin (06/01/2022 8:34 AM CDT) P athologist Signature Albumin, S 3.6 3.5 - 5.0 06/01/2022 DTL g/dL 9:32 AM CDT Specimen Anatomical Collection Method Collection Time Receive d Time (Source) Location / / Volume Laterality Blood (Blood, 06/01/2022 8:34 AM 06/01/20 9:12 Venous) CDT AM CDT Remy Irby APRN.N.P. LAB BLOOD ADD-ON Performing Organization Address [facility] Phon e Number [facility] - [address] [place] [phone] [place] [address] (ABNORMAL) Basic Metabolic Panel (06/01/2022 8:34 AM CDT) P athologist Signature Potassium, P 3.4 (L) 3.6 [...] Organization Address City/State/ZIP Code Phon e Number [facility] - [address] [place], [place] [address] [facility] [place] [address] [facility] [address] (ABNORMAL) CBC with Differential, Blood (06/01/2022 8:34 AM CDT) [facility] gist Method Time Signature Hemoglobin 10.3 (L) 13.2 [...] Blood (Blood, 06/01/2022 8:34 AM 06/01/20 22 9:00 Venous) CDT AM CDT Anya Glass APRN, C.N.P. LAB BLOOD ADD-ON Performing Organization Address City/State/ZIP Code Phon e Number [facility] - [address] [place], [place] [address] [facility] [address] [facility] [address] Abdomen Pelvis with IV Contrast (06/01/2022 [...] That study is reported separatel y. COMPARISON: [facility] examinations fro m 03/08/2022, 01/06/2022, and 11/03/2021. [...] That study is reported separatel y. COMPARISON: [facility] examinations fro m 03/08/2022, 01/06/2022, and 11/03/2021. [...] Signature Carbohydrate Ag 15 <35 U/mL 05/18/2022 [facility] 19-9, S 4:24 PM CDT Comment: ----ADDITIONAL INFORMATION---- The testing method is an immunoenzymatic assay manufactured by [employer]. and performed on the Red Stamp DxI 800. ? Values obtained with different [...] M.D. LAB BLOOD ADD-ON Performing Organization Address [facility] Phon e Number [facility] [address] [place], [place] [address] [place] [address] Laboratories [place], [place] [phone] [place] [address] Dr. [place] (ABNORMAL) ALT (Alanine Aminotransferase) (05/18/2022 11:18 AM CDT) [facility] Method Time Signature Alanine 75 (H) 7 - 55 05/18/2022 DTL Aminotransferase U/L 12:02 PM CDT (ALT), S Specimen Anatomical Collection Method Collection Time Receive d Time (Source) Location / / Volume Laterality Blood (Blood, 05/18/2022 11:18 05/18/2022 Venous) AM CDT 11:42 AM CDT Anya Glass APRN, C.N.P. LAB BLOOD ADD-ON Performing Organization Address City/[facility] Phon e Number [facility] [address] [place], [place] [address] [address] AST (Aspartate Aminotransferase) (05/18/2022 11:18 AM CDT) [facility] Method Time Signature Aspartate 31 8 - 48 05/18/2022 METH Aminotransferase U/L 11:45 AM CDT (AST), P Specimen Anatomical Collection Method Collection Time Receive d Time (Source) Location / / Volume Laterality Blood (Blood, 05/18/2022 11:18 05/18/2022 Venous) AM CDT 11:25 AM CDT Anya Glass APRN, C.N.P. LAB BLOOD ADD-ON Performing Organization Address City/State/ZIP Code Phon e Number [facility] - [address] [place], [place] [address] [facility] [place], [place] [phone] [place] [address] [address] [facility] Bilirubin, Total (05/18/2022 11:18 AM CDT) P athologist Signature Bilirubin, 0.5 <=1.2 mg/dL 05/18/2022 METH Total, P 11:45 AM CDT Specimen Anatomical Collection Method Collection Time Receive d Time (Source) Location / / Volume Laterality Blood (Blood, 05/18/2022 11:18 05/18/2022 Venous) AM CDT 11:25 AM CDT Anya Glass APRN, Remy.N.P. LAB BLOOD ADD-ON Performing Organization Address City/State/ZIP Code Phon e Number [facility] - [address] [place], [place] [address] [facility] [place] [address] (ABNORMAL) Alkaline Phosphatase (05/18/2022 11:18 AM CDT) P athologist Signature Alkaline 452 (H) 40 - 129 05/18/2022 DTL Phosphatase, S U/L 12:02 PM CDT Specimen Anatomical Collection Method Collection Time Receive d Time (Source) Location / / Volume Laterality Blood (Blood, 05/18/2022 11:18 05/18/2022 Venous) AM CDT 11:42 AM CDT Anya Glass APRN, C.N.P. LAB BLOOD ADD-ON Performing Organization Address City/State/ZIP Code Phon e Number [facility] - [address] [place], [place] [address] [facility] [place], [place] [phone] [place] [address] [address] [facility] Magnesium (05/18/2022 11:18 AM CDT) P athologist Signature Magnesium, S 2.0 1.7 - 2.3 05/18/2022 DTL mg/dL 12:02 PM CDT Specimen Anatomical Collection Method Collection Time Receive d Time (Source) Location / / Volume Laterality Blood (Blood, 05/18/2022 11:18 05/18/2022 Venous) AM CDT 11:42 AM CDT Anya Glass APRN, C.N.P. LAB BLOOD ADD-ON Performing Organization Address City/State/ZIP Code Phon e Number [facility] - [address] [place], [place] [address] [place], [place] [phone] [place] [address] 200 [facility] Phosphorus Inorganic (05/18/2022 11:18 AM CDT) P athologist Signature Phosphorus 3.9 2.5 - 4.5 05/18/2022 DTL (Inorganic), S mg/dL 12:02 PM CDT Specimen Anatomical Collection Method Collection Time Receive d Time (Source) Location / / Volume Laterality Blood (Blood, 05/18/2022 11:18 05/18/2022 Venous) AM CDT 11:42 AM CDT Anya Glass APRN, C.N.P. LAB BLOOD ADD-ON Performing Organization Address City/State/ZIP Code Phon e Number [facility] - [address] [place], [place] [address] [facility] [address] [facility] [address] Albumin (05/18/2022 11:18 AM CDT) P athologist Signature Albumin, S 3.9 3.5 - 5.0 05/18/2022 DTL g/dL 12:02 PM CDT Specimen Anatomical Collection Method Collection Time Receive d Time (Source) Location / / Volume Laterality Blood (Blood, 05/18/2022 11:18 05/18/2022 Venous) AM CDT 11:42 AM CDT Anya Glass APRN, C.N.P. LAB BLOOD ADD-ON Performing Organization Address City/State/ZIP Code Phon e Number [facility] - [address] [place], [place] [address] [facility] [place] [address] (ABNORMAL) Basic Metabolic Panel (05/18/2022 11:18 [...] Organization Address City/State/ZIP Code Phon e Number [facility] - [address] [place] [address] [facility] [place] [address] Laboratories-[address] (ABNORMAL) CBC with Differential, Blood (05/18/2022 11:18 AM CDT) Patholo gist Method Time Signature Hemoglobin 11.0 (L) 13.2 [...] Organization Address City/State/ZIP Code Phon e Number [facility] - [address] [place], [place] [address] [facility] [place] [address] [facility] [address] [facility] documented in this encounter Visit Diagnoses Diagnosis Medication Therapy Treasury Agent Not Anticoa gulant - Primary Secondary Malignant Neoplasm Liver (HCC) Malignant Neoplasm Of Pancreas (HCC) Malignant Neoplasm Of Pancreas (HCC) documented in this encounter Additional Health Concerns Assessment Noted Time PHQ-9 Depression Total Score: 2 10/01/2021 10:34 AM CS T documented as of this encounter Care Teams Window Caser Relationship Specialty Start Date End Date Elsewhere, Pcp PCP - General Family Medicine 08/12/20 documented as of this encounter
--- OUTSIDE RECORDS SUMMARY | 2022-06-18 16:01 | XMS_ITS | Encounter Summary ---
:1965 Author Organization [facility] Address [address] [place] [address] Care Team Providers Name Role Phone Elsewhere, Pcp Primary Care Provider Unavailable Reason for Visit Reason Comments Med Refill pantoprazole Encounter Details Date Type Department Care Team Description 03/25/2022 Refill Department of Oncology Maria Del Rosario Gomez, Med Refill (pantoprazole in [facility] Pratik JACKNLinda, M.S. ) [address] [facility] [address] [place] [address] [place], [place] [phone] (Wo rk) Social History Tobacco Use Types [...] How often do you attend jainism or faith services? 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 documented in this encounter Plan of Treatment Upcoming Encounters Date Type Specialty Care Team Description 06/22/2022 Lab Laboratory Medicine Maria Del Rosario Gomez AP RN, C.N.P., M.S. [address] [place] [phone] (Mj godoy) 06/22/2022 Infusion Oncology Maria Del Rosario Gomez APRN, C.N .P., M.S. [address] [place] [phone] (Mj godoy) 06/29/2022 Lab Laboratory Medicine Maria Del Rosario Gomez AP RN, C.N.P., M.S. [address] [place] [phone] (Mj godoy) 06/29/2022 Infusion Oncology Maria Del Rosario Gomez APRN, C.N .P., M.S. [address] [place] [phone] (Mj godoy) documented as of this encounter Visit Diagnoses Not on filedocumented in this encounter Additional Health Concerns Assessment Noted Time PHQ-9 Depression Total Score: 2 10/01/2021 10:34 AM CS T documented as of this encounter Care Teams Operational Risk Analyst Relationship Specialty Start Date End Date Elsewhere, Pcp PCP - General Family Medicine 08/12/20 documented as of this encounter
--- OUTSIDE RECORDS SUMMARY | 2022-06-18 16:01 | XMS_ITS | Encounter Summary ---
:1965 Author Organization [facility] Address [address] [place] [address] Care Team Providers Name Role Phone Elsewhere, Pcp Primary Care Provider Unavailable Encounter Details Date Type Department Care Team Description 04/06/2022 Clinical Communication Department of Oncology Taina Mora, in [facility] [phone] [address] [facility] ([place]) [place] [address] Social History Tobacco Use Types Packs/Day Years [...] er 01/15/2021 How often do you attend uatsdin or holiness services? Never 01/15/2021 Do you belong to any clubs or organizations such as uatsdin N o 01/15/2021 groups, unions, fraternal or [...] place to sleep or slept in a [facility] (including now)? Education Answer Date Recorded What is the highest level of school you have completed or 12 th grade 01/15/2021 the highest degree you have received? 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 [address] [place] [phone] (Mj rk) 06/22/2022 [facility], C.N .P., M.S. [address] [place] [phone] (Mj rk) 06/29/2022 Lab [facility] RN, C.N.P., M.S. [address] [place] [phone] (Mj godoy) 06/29/2022 [facility] APRN, C.N .P., M.S. [address] [place] [phone] (Mj godoy) documented as of this encounter Visit Diagnoses Not on filedocumented in this encounter Additional Health Concerns Assessment Noted Time PHQ-9 Depression Total Score: 2 10/01/2021 10:34 AM CS T documented as of this encounter Care Teams Customer Strategy Manager Relationship Specialty Start Date End Date Elsewhere, Pcp PCP - General Family Medicine 08/12/20 documented as of this encounter
--- OUTSIDE RECORDS SUMMARY | 2022-06-18 16:01 | XMS_ITS | Encounter Summary ---
:1965 Author Organization [facility] Address [address] [place] [address] Care Team Providers Name Role Phone Elsewhere, Pcp Primary Care Provider Unavailable Encounter Details Date Type Department Care Team Description 03/30/2022 Clinical Communication Visit Review in [address] [place] [address] Social History Tobacco Use Types Packs/Day Years [...] How often do you attend anabaptism or moravian services? Never 01/15/2021 Do you belong to [...] place to sleep or slept in a [facility] (including now)? Education Answer Date Recorded What is the highest level of school you have completed or 12 th grade 01/15/2021 the highest degree you have received? 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 [address] [place] [phone] (Mj godoy) 06/22/2022 Infusion Oncology [place] pierre APRN, C.N .P., M.S. [address] [place] [phone] (Mj godoy) 06/29/2022 Lab Laboratory Medicine Maria Del Rosario Gomez AP RN, C.N.P., M.S. [address] [place] [phone] (Mj godoy) 06/29/2022 Infusion Oncology Maria Del Rosario Gomez APRN, C.N .P., M.S. [address] [place] [phone] (Mj godoy) documented as of this encounter Visit Diagnoses Not on filedocumented in this encounter Additional Health Concerns Assessment Noted Time PHQ-9 Depression Total Score: 2 10/01/2021 10:34 AM CS T documented as of this encounter Care Teams Carbon Sequestration Plant Manager Relationship Specialty Start Date End Date Elsewhere, Pcp PCP - General Family Medicine 08/12/20 documented as of this encounter
--- OUTSIDE RECORDS SUMMARY | 2022-06-18 16:01 | XMS_ITS | Encounter Summary ---
:1965 Author Organization [facility] Address [address] [place] [address] Care Team Providers Name Role Phone Elsewhere, Pcp Primary Care Provider Unavailable Reason for Visit Reason Comments Med Refill Encounter Details Date Type Department Care Team Description 04/11/2022 Refill Department of Palliative Care Marcelina Gonzalez, Med Refill in [facility] elke P.ARiaz-CRiaz [address] [facility] [address] [place] [address] [place] [address] [phone] (Wo rk) Social History Tobacco Use Types [...] er 01/15/2021 How often do you attend oriental orthodox or zoroastrianism services? 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 - 04/11/2022 8:40 AM CDT Patient was last seen in clinic in November 2021. No showed February 2022 follow up visit. Has been following closely with Oncology, per chart review Oncology providers have been prescribing. Patient should contact Oncology for refill request. documented in this encounter Plan of Treatment Upcoming Encounters Date Type Specialty Care Team Description 06/22/2022 Lab Laboratory Medicine Maria Del Rosario Gomez AP RN, C.N.P., M.S. [address] [place] [phone] (Mj rk) 06/22/2022 Infusion Oncology Maria Del Rosario Gomez APRN, C.N .P., M.S. [address] [place] [phone] (Wo rk) 06/29/2022 Lab Laboratory Medicine Maria Del Rosario Gomez AP RN, C.N.P., M.S. [address] [place] [phone] (Wo rk) 06/29/2022 Infusion Oncology Maria Del Rosario Gomez APRN, C.N .P., M.S. [address] [place] [phone] (Mj rk) documented as of this encounter Visit Diagnoses Not on filedocumented in this encounter Additional Health Concerns Assessment Noted Time PHQ-9 Depression Total Score: 2 10/01/2021 10:34 AM CS T documented as of this encounter Care Teams Tubular Splitting Machine Tender Relationship Specialty Start Date End Date Elsewhere, Pcp PCP - General Family Medicine 08/12/20 documented as of this encounter
--- OUTSIDE RECORDS SUMMARY | 2022-06-18 16:01 | XMS_ITS | Encounter Summary ---
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 [address] [place] [address] [address] [place] [phone] Referral ID Status Reason Start Date Expiration Date Visits Requ ested Visits Authorized [id number] Closed 08/27/2021 08/27/2022 36 36 Encounter Details Date Type Department Care Team Description 04/06/2022 Lab Department of Laboratory Everette Zarco Secondary Malignant Neoplasm Liver (HCC) (Primary Dx); Medicine and Pathology, R, M.D. Medication Therapy [facility] Not Anticoa [email or web address]; Hernan Donato, in [address] [place] [address] Malignant Neoplasm Of Pancreas (HCC); [place], [place] Bacteremia [address] [place] [phone] [place] [address] [phone] Social History Tobacco Use Types Packs/Day Years [...] er 01/15/2021 How often do you attend mandaeism or lutheran services? Never 01/15/2021 Do you belong to any clubs or organizations such as mandaeism N o 01/15/2021 groups, unions, fraternal or [...] at Date Recorded Male 08/18/2021 2:55 PM TIE IN HAND documented as of this encounter Plan of Treatment Upcoming Encounters Date Type Specialty Care Team Description 06/22/2022 Lab Laboratory Medicine Maria Del Rosario Gomez AP RN, C.N.P., M.S. [address] [place] [phone] (Mj godoy) 06/22/2022 Infusion Oncology Maria Del Rosario Gomez APRN, C.N .P., M.S. [address] [place] [phone] (Mj godoy) 06/29/2022 Lab Laboratory Medicine Maria Del Rosario Gomez AP RN, C.N.P., M.S. [address] [place] [phone] (Mj godoy) 06/29/2022 Infusion Oncology Maria Del Rosario Gomez APRN, C.N .P., M.S. [address] [place] [phone] (Mj godoy) documented as of this encounter Procedures Procedure Name Priority Date/Time Associated Comments Diagnosis MISC RESEARCH ORDER, B Routine 04/06/2022 8:31 Secondary Re sults for this AM CDT Malignant Neoplasm procedure are in Liver (HCC) the results Medication Therapy section. [facility] Not Anticoagulant Malignant Neoplasm Of Pancreas (HCC) CBC WITH DIFFERENTIAL, B Routine 04/06/2022 8:31 Secondary Results for this AM CDT Malignant Neoplasm procedure are in Liver (HCC) the results Medication Therapy section. Heavy Forger Not Anticoagulant Malignant Neoplasm Of Pancreas (HCC) ALANINE AMINOTRANSFERASE Routine 04/06/2022 8:31 Secondary Results for this (ALT), S/P AM CDT Malignant Neoplasm procedure are in Liver (HCC) the results Medication Therapy section. [facility] Not Anticoagulant Malignant Neoplasm Of Pancreas (HCC) ASPARTATE Routine 04/06/2022 8:31 Secondary Results for this AMINOTRANSFERASE (AST), AM CDT Malignant Neoplas m procedure are in S/P Liver (HCC) the results Medication Therapy section. Heavy Forger Not Anticoagulant Malignant Neoplasm Of Pancreas (HCC) PHOSPHORUS (INORGANIC), Routine 04/06/2022 8:31 Secondary R esults for this S AM CDT Malignant Neoplasm procedure are in Liver (HCC) the results Medication Therapy section. Heavy Forger Not Anticoagulant Malignant Neoplasm Of Pancreas (HCC) ALKALINE PHOSPHATASE, Routine 04/06/2022 8:31 Secondary Res ults for this S/P AM CDT Malignant Neoplasm procedure are in Liver (HCC) the results Medication Therapy section. [facility] Not Anticoagulant Malignant Neoplasm Of Pancreas (HCC) MAGNESIUM, S Routine 04/06/2022 8:31 Secondary Results for this AM CDT Malignant Neoplasm procedure are in Liver (HCC) the results Medication Therapy section. Heavy Forger Not Anticoagulant Malignant Neoplasm Of Pancreas (HCC) BILIRUBIN, TOT, S/P Routine 04/06/2022 8:31 Secondary Resul ts for this AM CDT Malignant Neoplasm procedure are in Liver (HCC) the results Medication Therapy section. [facility] Not Anticoagulant Malignant Neoplasm Of Pancreas (HCC) ALBUMIN, S/P Routine 04/06/2022 8:31 Secondary Results for this AM CDT Malignant Neoplasm procedure are in Liver (HCC) the results Medication Therapy section. Heavy Forger Not Anticoagulant Malignant Neoplasm Of Pancreas (HCC) BASIC METABOLIC PANEL, Routine 04/06/2022 8:31 Secondary Re sults for this S/P AM CDT Malignant Neoplasm procedure are in Liver (HCC) the results Medication Therapy section. [facility] Not Anticoagulant Malignant Neoplasm Of Pancreas (HCC) documented in this encounter Results Miscellaneous Research, B (04/06/2022 8:31 AM CDT) P athologist Signature Number of 3 04/06/2022 HSS Specimens 8:31 AM CDT Specimen Anatomical Collection Method Collection Time Receive d Time (Source) Location / / Volume Laterality Varies (Blood, 04/06/2022 8:31 AM 022 8:31 Venous) CDT AM CDT Vladislav Zarco M.D. LAB RESEARCH NO RESULT VERENICE MCFADDEN Performing Organization Address City/[facility]/ZIP Code Phon e Number [facility] - [address] [place] [address] [address] [facility] [address] [place] [address] [address] [facility] ALT (Alanine Aminotransferase) (04/06/2022 8:31 AM CDT) [facility] gist Method Time Signature Alanine 55 7 - 55 04/06/2022 DTL Aminotransferase U/L 9:23 AM CDT (ALT), S Specimen Anatomical Collection Method Collection Time Receive d Time (Source) Location / / Volume Laterality Blood (Blood, 04/06/2022 8:31 AM 04/06/20 22 9:06 Venous) CDT AM CDT Vladislav Zarco M.D. LAB BLOOD ADD-ON Performing Organization Address City/[facility]/ZIP Code Phon e Number [facility] - [address] [place], [place] [address] [facility] [address] Laboratories-[facility] [address] AST (Aspartate Aminotransferase) (04/06/2022 8:31 AM CDT) [facility] gist Method Time Signature Aspartate 26 8 - 48 04/06/2022 METH Aminotransferase U/L 9:37 AM CDT (AST), P Specimen Anatomical Collection Method Collection Time Receive d Time (Source) Location / / Volume Laterality Blood (Blood, 04/06/2022 8:31 AM 04/06/20 22 8:47 Venous) CDT AM CDT Vladislav Zarco M.D. LAB BLOOD ADD-ON Performing Organization Address City/State/ZIP Code Phon e Number [facility] - 200 [place], [place] [address] [facility] [place] [address] [facility] 200 [facility] Bilirubin, Total (04/06/2022 8:31 AM CDT) athologist Signature Bilirubin, 0.8 <=1.2 mg/dL 04/06/2022 METH Total, P 9:37 AM CDT Specimen Anatomical Collection Method Collection Time Receive d Time (Source) Location / / Volume Laterality Blood (Blood, 04/06/2022 8:31 AM 04/06/20 22 8:47 Venous) CDT AM CDT Vladislav Zarco M.D. LAB BLOOD ADD-ON Performing Organization Address City/State/[facility] Phon e Number [facility] - [address] [place] [address] (ABNORMAL) Alkaline Phosphatase (04/06/2022 8:31 AM CDT) athologist Signature Alkaline 339 (H) 40 - 129 04/06/2022 DTL Phosphatase, S U/L 9:23 AM CDT Specimen Anatomical Collection Method Collection Time Receive d Time (Source) Location / / Volume Laterality Blood (Blood, 04/06/2022 8:31 AM 04/06/20 22 9:06 Venous) CDT AM CDT Vladislav Zarco M.D. LAB BLOOD ADD-ON Performing Organization Address City/State/ZIP Code Phon e Number [facility] - 200 [place], [place] [address] [facility] DTL [address] Magnesium (04/06/2022 8:31 AM CDT) athologist Signature Magnesium, S 1.9 1.7 - 2.3 04/06/2022 DTL mg/dL 9:23 AM CDT Specimen Anatomical Collection Method Collection Time Receive d Time (Source) Location / / Volume Laterality Blood (Blood, 04/06/2022 8:31 AM 04/06/20 22 9:06 Venous) CDT AM CDT Vladislav Zarco M.D. LAB BLOOD ADD-ON Performing Organization Address City/[facility] Phon e Number [facility] - 200 [place] [address] [place] [phone] [place] [address] Phosphorus Inorganic (04/06/2022 8:31 AM CDT) athologist Signature Phosphorus 3.5 2.5 - 4.5 04/06/2022 DTL (Inorganic), S mg/dL 9:23 AM CDT Specimen Anatomical Collection Method Collection Time Receive d Time (Source) Location / / Volume Laterality Blood (Blood, 04/06/2022 8:31 AM 04/06/20 22 9:06 Venous) CDT AM CDT Vladislav Zarco M.D. LAB BLOOD ADD-ON Performing Organization Address City/[facility]/ZIP Code Phon e Number [facility] - 200 [place] [address] 05 [place] [address] Albumin (04/06/2022 8:31 AM CDT) athologist Signature Albumin, S 3.6 3.5 - 5.0 04/06/2022 DTL g/dL 9:23 AM CDT Specimen Anatomical Collection Method Collection Time Receive d Time (Source) Location / / Volume Laterality Blood (Blood, 04/06/2022 8:31 AM 04/06/20 22 9:06 Venous) CDT AM CDT Vladislav Zarco M.D. LAB BLOOD ADD-ON Performing Organization Address City/[facility]/ZIP Code Phon e Number [facility] - 200 [place], [place] [address] 05 [place], [place] [phone] [place] [address] (ABNORMAL) Basic Metabolic Panel (04/06/2022 8:31 AM CDT) athologist Signature Potassium, P 3.3 (L) 3.6 - 5.2 04/06/2022 METH mmol/L 9:37 AM CDT Sodium, P 138 135 - 145 04/06/2022 METH mmol/L 9:37 AM CDT Chloride, P 104 98 - 107 04/06/2022 METH mmol/L 9:37 AM CDT Bicarbonate, P 25 22 - 29 04/06/2022 METH mmol/L 9:37 AM CDT Anion Gap, P 9 7 - 15 04/06/2022 METH 9:37 AM CDT BUN (Blood Urea 10 8 - 24 04/06/2022 METH Nitrogen), P mg/dL 9:37 AM CDT Creatinine 0.83 0.74 - 04/06/2022 METH 1.35 mg/dL 9:37 AM CDT eGFR-Black/Afri >90 >=60 04/06/2022 METH can [place]inamese mL/min/BSA 9:37 AM CDT Comment: ----ADDITIONAL INFORMATION---- Estimated GFR calculated using the 2009 CKD_EPI creatinine equation. eGFR Non-Black/ >90 >=60 mL/min/BSA 04/06/2022 9:37 AM CDT METH Comment: ----ADDITIONAL INFORMATION---- Estimated GFR calculated using the 2009 CKD_EPI creatinine equation. Calcium, Total, P 8.7 8.6 - 10.0 mg/dL 04/06/2022 9:37 AM CDT METH Glucose, P 154 (H) 70 - 140 mg/dL 04/06/2022 9:37 AM CDT M ETH Specimen Anatomical Collection Method Collection Time Receive d Time (Source) Location / / Volume Laterality Blood (Blood, 04/06/2022 8:31 AM 04/06/20 8:47 Venous) CDT AM CDT Vladislav Zarco M.D. LAB BLOOD ADD-ON Performing Organization Address City/State/ZIP Code Phon e Number [facility] - [address] [place], [place] [address] [facility] [place] [address] Laboratories-[facility] [address] (ABNORMAL) CBC with Differential, Blood (04/06/2022 8:31 AM CDT) [facility] Method Time Signature Hemoglobin 9.6 (L) 13.2 - 04/06/2022 DTL 16.6 g/dL 9:21 AM CDT Hematocrit 30.1 (L) 38.3 - 04/06/2022 DTL 48.6 % 9:21 AM CDT Erythrocytes 3.55 (L) 4.35 - 04/06/2022 DTL 5.65 9:21 AM CDT x10(12)/L MCV 84.8 78.2 - 04/06/2022 DTL 97.9 fL 9:21 AM CDT RBC Distrib Width 17.4 (H) 11.8 - 04/06/2022 DTL 14.5 % 9:21 AM CDT Platelet Count 189 135 - 317 04/06/2022 DTL x10(9)/L 9:21 AM CDT Leukocytes 3.2 (L) 3.4 - 9.6 04/06/2022 DTL x10(9)/L 9:21 AM CDT Neutrophils 2.02 1.56 - 04/06/2022 DTL 6.45 10:08 AM CDT x10(9)/L Comment: Rechecked Lymphocytes 0.47 (L) 0.95 - 3.07 x10(9)/L 04/06/2022 10:08 AM CDT DTL Monocytes 0.49 0.26 - 0.81 x10(9)/L 04/06/2022 10:08 AM CDT DTL Eosinophils 0.23 0.03 - 0.48 x10(9)/L 04/06/2022 10:08 AM CDT DTL Basophils <0.03 0.01 - 0.08 x10(9)/L 04/06/2022 10:08 AM CDT DTL Specimen Anatomical Collection Method Collection Time Receive d Time (Source) Location / / Volume Laterality Blood (Blood, 04/06/2022 8:31 AM 04/06/20 8:52 Venous) CDT AM CDT Vladislav Zarco M.D. LAB BLOOD ADD-ON Performing Organization Address City/State/ZIP Code Phon e Number [facility] - [address] [place], [place] [address] [facility] [place] [address] Laboratories-[facility] [address] documented in this encounter Visit Diagnoses Diagnosis Secondary Malignant Neoplasm Liver (HCC) - Primary Medication Therapy [facility] Not Anticoa gulant Malignant Neoplasm Of Pancreas (HCC) Bacteremia documented in this encounter Administered Medications Inactive Administered Medications - up to 3 most recent administrations Medication Order MAR Action Action Date Dose Rate Site heparin flush 500 Units Given 04/06/2022 8:24 AM CDT 500 Units 500 Units, intra-catheter, As needed, line care, Starting on Mon04/06/22 at 0823, When no infusion to maintain patency: For IVAD accessed, not in use, and/or prior to hospital discharge, flush every 7 days after 0.9% preservative-free NaCL flush. For IVAD NOT accessed or used, flush every 4 weeks after 0.9% preservative-free NaCL flush. sodium chloride 0.9 % injection 10 mL Given 04/06/2022 8:24 AM CDT 10 mL 10 mL, intra-catheter, As needed, line care, Starting on Mon04/06/22 at 0823, When IVAD Accessed and in Use: Flush prior to and following infusion, between multiple consecutive infusions, and prior to blood sampling. sodium chloride 0.9 % injection 20 mL Given 04/06/2022 8:24 AM CDT 20 mL 20 mL, intra-catheter, As needed, line care, Starting on Mon04/06/22 at 0823, When IVAD Accessed and in Use: Flush post blood transfusion or post blood sampling. documented in this encounter Additional Health Concerns Assessment Noted Time PHQ-9 Depression Total Score: 2 10/01/2021 10:34 AM CS T documented as of this encounter Care Teams Legal Administrative Assistant Relationship Specialty Start Date End Date Elsewhere, Pcp PCP - General Family Medicine 08/12/20 documented as of this encounter
--- OUTSIDE RECORDS SUMMARY | 2022-06-18 16:01 | XMS_ITS | Encounter Summary ---
:1965 Author Organization [facility] Address [address] [place] [address] Care Team Providers Name Role Phone Elsewhere, Pcp Primary Care Provider Unavailable Reason for Visit Episode Based Medications (Routine) - Closed Specialty Diagnoses / Procedures Referred By Contact Refer red To Contact Diagnoses Malignant Neoplasm Of Pancreas (HCC) Secondary Malignant Neoplasm Liver (HCC) Medication Therapy Plate Conditioner Not Anticoagulant Jesse [facility] Procedures [place] ONDANSETRON HCL INJECTION NH LEUCOVORIN CALCIUM INJECTION NH INJ IRINOTECAN LIPOSOME 1 MG [place] FLUOROURACIL INJECTION P.A.-C., M.S. [address] [facility] [address] [place] [phone] Referral ID Status Reason Start Date Expiration Date Visits Requ ested Visits Authorized [id number] Closed 08/27/2021 08/27/2022 36 36 Encounter Details Date Type Department Care Team Description 03/21/2022 Infusion Department of Oncology Vladislav Zarco Secondary Malignant Neoplasm Liver (HCC) (Primary Dx); in [facility] elke Pereira M.D. Medication Therapy Plate Conditioner Not Anticoa gulant; [address] [facility] [address] [facility] Malignant Neoplasm Of Pancreas (HCC); [place], [place] Bacteremia [phone] (Wo rk) Social History Tobacco Use Types [...] er 01/15/2021 How often do you attend taoism or judaism services? 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 [address] [place] [phone] (Mj godoy) 06/22/2022 Infusion Oncology Maria Del Rosario Gomez APRN, C.N .P., M.S. [address] [place] [address] [phone] (Mj godoy) 06/29/2022 Lab Laboratory Medicine Maria Del Rosario Gomez AP RN, C.N.P., M.S. [address] [place] [address] [phone] (Mj godoy) 06/29/2022 Infusion Oncology Maria Del Rosario Gomez APRN, C.N .P., M.S. [address] [place] [address] [phone] (Mj godoy) documented as of this encounter Visit Diagnoses Diagnosis Secondary Malignant Neoplasm Liver (HCC) - Primary Medication Therapy Custodial Not Anticoa gulant Malignant Neoplasm Of Pancreas (HCC) Bacteremia documented in this encounter Administered Medications Inactive Administered Medications - up to 3 most recent administrations Medication Order MAR Action Action Date Dose Rate Site dexAMETHasone injection 8 mg Given 03/21/2022 11:10 AM CDT 8 mg (DECADRON) 8 mg, intravenous, Once, On Mon03/21/22 at 1115, For 1 dose fluorouraciL 4,500 mg in NaCl 0.9% Given 03/21/2022 2:33 PM CDT 4,500 mg 5 mL/hr 230 mL IVPB (ADRUCIL) 4,500 mg (rounded from 4,536 mg = 2,400 mg/m2 ? 1.89 m2 Treatment Plan BSA from Measured weight), intravenous, at 5 mL/hr, Administer over 46 Hours, over 46 hours, First dose on Mon03/21/22 at 1315, For 1 dose, Continuous infusion over 46 hours immediately following Leucovorin. Dose reflects TOTAL CALCULATED DOSE to be administered via continuous infusion over the specified length of treatment. irinotecan liposomaL 86 mg in D5W New Bag 03/21/2022 12:17 PM CDT 86 mg 347 mL/hr 520 mL IVPB (ONIVYDE) 86 mg (rounded from 81.27 mg = 43 mg/m2 ? 1.89 m2 Treatment Plan BSA from Measured weight), intravenous, at 347 mL/hr, Administer over 90 Minutes, Once, On Mon03/21/22 at 1115, For 1 dose, Administer immediately following the administration of oral onvansertib. Protect from light. No in-line filter. leucovorin 750 mg in NaCl 0.9% New Bag 03/21/2022 2:00 PM CDT 750 mg 625 mL/hr 312.5 mL IVPB 750 mg (rounded from 756 mg = 400 mg/m2 ? 1.89 m2 Treatment Plan BSA from Measured weight), intravenous, at 625 mL/hr, Administer over 30 Minutes, Once, On Mon03/21/22 at 1245, For 1 dose, Follows irinotecan liposome. NaCl 0.9 % bolus 1,000 mL New Bag 03/21/2022 11:20 AM CDT 1,000 mL 1000 mL/hr 1,000 mL, intravenous, at 1,000 mL/hr, Administer over 1 Hours, Once, On Mon03/21/22 at 1115, For 1 dose ondansetron (PF) injection 8 mg (ZOFRAN) Given 03/21/2022 11:20 AM CDT 8 mg 8 mg, intravenous, Once, On Mon03/21/22 at 1115, For 1 dose [facility] IR[facility] [id number] onvansertib capsule 10 Given 12:16 PM CDT 10 mg mg (PCM-075) 10 mg, oral, Once, On Mon03/21/22 at 1115, For 1 dose, This is the 5 [...] prior to liposomal irinotecan Infusion. [facility] IR[facility] [id number] onvansertib capsule 20 Given 12:16 PM CDT 20 mg mg (PCM-075) 20 mg, oral, Once, On Mon03/21/22 at 1115, For 1 dose, This is the 20 [...] chloride 0.9 % injection 10 mL Given 03/21/2022 11:09 AM CDT 10 mL 10 mL, intra-catheter, As needed, line care, Starting on Mon03/21/22 at 1105, When IVAD Accessed and in Use: Flush prior to and following infusion, between multiple consecutive infusions, and prior to blood sampling. documented in this encounter Additional Health Concerns Assessment Noted Time PHQ-9 Depression Total Score: 2 10/01/2021 10:34 AM CS T documented as of this encounter Care Teams Outsole Tacker Relationship Specialty Start Date End Date Elsewhere, Pcp PCP - General Family Medicine 08/12/20 documented as of this encounter
--- OUTSIDE RECORDS SUMMARY | 2022-06-18 16:01 | XMS_ITS | Encounter Summary ---
:1965 Author Organization [facility] Address [address] [place] [address] Care Team Providers Name Role Phone Elsewhere, Pcp Primary Care Provider Unavailable Encounter Details Date Type Department Care Team Description 04/06/2022 Orders Only Department of Oncology in [facility] [place], [place] [address] [facility] [address] [place] [phone] Social History Tobacco Use Types Packs/Day Years [...] often do you attend latter day or rastafarian services? 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 [address] [place] [address] [phone] (Wo rk) 06/22/2022 [facility]., [facility] [address] [place] [address] [phone] (Wo rk) 06/29/2022 [facility]., [facility].S. [address] [place] [address] [phone] (Mj rk) 06/29/2022 [facility] .[facility]., M.S. [address] [place] [address] [phone] (Wo rk) documented as of this encounter Visit Diagnoses Not on filedocumented in this encounter Additional Health Concerns Assessment Noted Time PHQ-9 Depression Total Score: 2 10/01/2021 10:34 AM CS T documented as of this encounter Care Teams Supervisor Record Press Relationship Specialty Start Date End Date Elsewhere, Pcp PCP - General Family Medicine 08/12/20 documented as of this encounter
--- OUTSIDE RECORDS SUMMARY | 2022-06-18 16:01 | XMS_ITS | Encounter Summary ---
:1965 Author Organization [facility] Address [address] [place] [address] Care Team Providers Name Role Phone Elsewhere, Pcp Primary Care Provider Unavailable Encounter Details Date Type Department Care Team Description 03/17/2022 Orders Only Department of Oncology in [facility] [place], [place] [address] [facility] [address] [place] [phone] Social History Tobacco Use Types Packs/Day Years [...] er 01/15/2021 How often do you attend judaism or presybeterian services? 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 [address] [place] [address] [phone] (Wo rk) 06/22/2022 [facility] .[facility]., M.S. [address] [place] [address] [phone] (Wo rk) 06/29/2022 [facility], C.N.P., M.S. [address] [place] [address] [phone] (Mj rk) 06/29/2022 [facility].N .P., M.S. [address] [place] [address] [phone] (Wo rk) documented as of this encounter Visit Diagnoses Not on filedocumented in this encounter Additional Health Concerns Assessment Noted Time PHQ-9 Depression Total Score: 2 10/01/2021 10:34 AM CS T documented as of this encounter Care Teams Resident Services Manager Relationship Specialty Start Date End Date Elsewhere, Pcp PCP - General Family Medicine 08/12/20 documented as of this encounter
--- OUTSIDE RECORDS SUMMARY | 2022-06-18 16:01 | XMS_ITS | Encounter Summary ---
:1965 Author Organization [facility] Address [address] [place] [address] Care Team Providers Name Role Phone Elsewhere, Pcp Primary Care Provider Unavailable Reason for Referral Outpatient (Routine) - Closed Specialty Diagnoses / Procedures Referred By Contact Refer red To Contact Diagnoses Malignant Neoplasm Of Pancreas (HCC) Vladislav Zarco M.D. 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 Pancreas (HCC) [place] [address] [place] [address] (Primary Dx) [address] [place] [phone] Social History Tobacco Use Types Packs/Day Years [...] er 01/15/2021 How often do you attend congregation or congregational services? 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 [address] [place] [address] [phone] (Mj godoy) 06/22/2022 Infusion Oncology Maria Del Rosario Gomez APRN, C.N .P., M.S. [address] [place] [address] [phone] (Mj godoy) 06/29/2022 Lab Laboratory Medicine Maria Del Rosario Gomez AP RN, C.N.P., M.S. [address] [place] [address] [phone] (Mj godoy) 06/29/2022 Infusion Oncology Maria Del Rosario Gomez APRN, C.N .P., M.S. [address] [place] [address] [phone] (Mj godoy) Scheduled Orders Name Type Priority Associated Diagnoses Order S chedule Perform central line Procedures Routine Malignant Neoplasm O f Expected: 03/08/2022 maintenance: Pancreas (HCC) (Approximate) , De-access port Expires: 05/13 documented as of this encounter Visit Diagnoses Diagnosis Malignant Neoplasm Of Pancreas (HCC) - P rimary documented in this encounter Additional Health Concerns Assessment Noted Time PHQ-9 Depression Total Score: 2 10/01/2021 10:34 AM CS T documented as of this encounter Care Teams Centralized Traffic Control Operator Relationship Specialty Start Date End Date Elsewhere, Pcp PCP - General Family Medicine 08/12/20 documented as of this encounter
--- OUTSIDE RECORDS SUMMARY | 2022-06-18 16:01 | XMS_ITS | Encounter Summary ---
:1965 Author Organization [facility] Address [address] [place] [address] Care Team Providers Name Role Phone Elsewhere, Pcp Primary Care Provider Unavailable Reason for Visit Episode Based Medications (Routine) - Closed Specialty Diagnoses / Procedures Referred By Contact Refer red To Contact Diagnoses Malignant Neoplasm Of Pancreas (HCC) Secondary Malignant Neoplasm Liver (HCC) Medication Therapy Piano Machine Operator Not Anticoagulant Jesse Perkins [facility] Procedures [place] ONDANSETRON HCL INJECTION OK LEUCOVORIN CALCIUM INJECTION OK INJ IRINOTECAN LIPOSOME 1 MG [place] FLUOROURACIL INJECTION P.A.-C., M.S. [address] [facility] [address] [place] [phone] Referral ID Status Reason Start Date Expiration Date Visits Requ ested Visits Authorized [id number] Closed 08/27/2021 08/27/2022 36 36 Encounter Details Date Type Department Care Team Description 04/06/2022 Infusion Department of Oncology Vladislav Zarco Secondary Malignant Neoplasm Liver (HCC) (Primary Dx); in [facility] elke Pereira M.D. Medication Therapy Piano Machine Operator Not Anticoa gulant; [address] [facility] [address] [facility] Malignant Neoplasm Of Pancreas (HCC); [place], [place] Bacteremia [phone] (Wo rk) Social History Tobacco Use Types [...] er 01/15/2021 How often do you attend temple or rastafarian services? 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 [address] [place] [address] [phone] (Mj godoy) 06/22/2022 Infusion Oncology Maria Del Rosario Gomez APRN, C.N .P., M.S. [address] [place] [address] [phone] (Mj godoy) 06/29/2022 Lab Laboratory Medicine Maria Del Rosario Gomez AP RN, C.N.P., M.S. [address] [place] [address] [phone] (Mj godoy) 06/29/2022 Infusion Oncology Maria Del Rosario Gomez APRN, C.N .P., M.S. [address] [place] [address] [phone] (Mj godoy) documented as of this encounter Visit Diagnoses Diagnosis Secondary Malignant Neoplasm Liver (HCC) - Primary Medication Therapy Usp Not Anticoa gulant Malignant Neoplasm Of Pancreas (HCC) Bacteremia documented in this encounter Administered Medications Inactive Administered Medications - up to 3 most recent administrations Medication Order MAR Action Action Date Dose Rate Site dexAMETHasone injection 8 mg Given 04/06/2022 1:44 PM CDT 8 mg (DECADRON) 8 mg, intravenous, Once, On Mon04/06/22 at 1345, For 1 dose fluorouraciL 4,500 mg in NaCl 0.9% Given 04/06/2022 5:52 PM CDT 4,500 mg 5 mL/hr 230 mL IVPB (ADRUCIL) 4,500 mg (rounded from 4,536 mg = 2,400 mg/m2 ? 1.89 m2 Treatment Plan BSA from Measured weight), intravenous, at 5 mL/hr, Administer over 46 Hours, over 46 hours, First dose on Mon04/06/22 at 1545, For 1 dose, Continuous infusion over 46 hours immediately following Leucovorin. Dose reflects TOTAL CALCULATED DOSE to be administered via continuous infusion over the specified length of treatment. irinotecan liposomaL 86 mg in D5W New Bag 04/06/2022 3:17 PM C DT 86 mg 347 mL/hr 520 mL IVPB (ONIVYDE) 86 mg (rounded from 81.27 mg = 43 mg/m2 ? 1.89 m2 Treatment Plan BSA from Measured weight), intravenous, at 347 mL/hr, Administer over 90 Minutes, Once, On Mon04/06/22 at 1345, For 1 dose, Administer immediately following the administration of oral onvansertib. Protect from light. No in-line filter. leucovorin 750 mg in NaCl 0.9% New Bag 04/06/2022 5:00 PM CDT 750 mg 625 mL/hr 312.5 mL IVPB 750 mg (rounded from 756 mg = 400 mg/m2 ? 1.89 m2 Treatment Plan BSA from Measured weight), intravenous, at 625 mL/hr, Administer over 30 Minutes, Once, On Mon04/06/22 at 1515, For 1 dose, Follows irinotecan liposome. NaCl 0.9 % bolus 1,000 mL New Bag 04/06/2022 1:40 PM CDT 1,000 mL 1000 mL/hr 1,000 mL, intravenous, at 1,000 mL/hr, Administer over 1 Hours, Once, On Mon04/06/22 at 1345, For 1 dose ondansetron (PF) injection 8 mg (ZOFRAN) Given 04/06/2022 1:44 PM CDT 8 mg 8 mg, intravenous, Once, On Mon04/06/22 at 1345, For 1 dose potassium chloride IVPB 10 mEq New Bag 04/06/2022 5:00 PM CDT 10 mEq 100 mL/hr 10 mEq, intravenous, at 100 mL/hr, Administer over 60 Minutes, Every 1 hour, First dose on Mon04/06/22 at 1400, For 2 doses, Peripheral Line: 10 mEq per bag over 1 hour each. New Bag 04/06/2022 2:13 PM CDT 10 mEq 100 mL/hr Research IRB [id number] onvansertib capsule 10 Given 5:12 PM CDT 10 mg mg (PCM-075) 10 mg, oral, Once, On Mon04/06/22 at 1715, For 1 dose, This is the 5 [...] prior to liposomal irinotecan Infusion. Research IRB [id number] onvansertib capsule 20 Given 5:12 PM CDT 20 mg mg (PCM-075) 20 mg, oral, Once, On Mon04/06/22 at 1715, For 1 dose, This is the 20 [...] administered immediately prior to liposomal irinotecan Infusion. documented in this encounter Additional Health Concerns Assessment Noted Time PHQ-9 Depression Total Score: 2 10/01/2021 10:34 AM CS T documented as of this encounter Care Teams Towel Inspector Relationship Specialty Start Date End Date Elsewhere, Pcp PCP - General Family Medicine 08/12/20 documented as of this encounter
--- OUTSIDE RECORDS SUMMARY | 2022-06-18 16:01 | XMS_ITS | Encounter Summary ---
:1965 Author Organization [facility] Address [address] [place] [address] Care Team Providers Name Role Phone Elsewhere, Pcp Primary Care Provider Unavailable Reason for Visit Reason Comments Med Refill pantoprazole Encounter Details Date Type Department Care Team Description 04/08/2022 Refill Department of Oncology Maria Del Rosario Gomez, Med Refill (pantoprazole in [facility] Pratik JACKNLinda, M.S. ) [address] [facility] [address] [place] [address] [place], [place] [phone] (Wo rk) Social History Tobacco Use Types [...] er 01/15/2021 How often do you attend buddhist or gnosticism services? Never 01/15/2021 Do you belong to any clubs or organizations such as buddhist N o 01/15/2021 groups, unions, fraternal or [...] place to sleep or slept in a retirement (including now)? Education Answer Date Recorded What is the highest level of school you have completed or 12 th grade 01/15/2021 the highest degree you have received? 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 documented in this encounter Plan of Treatment Upcoming Encounters Date Type Specialty Care Team Description 06/22/2022 Lab Laboratory Medicine Maria Del Rosario Gomez AP RN, C.N.P., M.S. [address] [place] [phone] (jM godoy) 06/22/2022 Infusion Oncology Maria Del Rosario Gomez APRN, C.N .P., M.S. [address] [place] [phone] (Mj godoy) 06/29/2022 Lab Laboratory Medicine Maria Del Rosario Gomez AP RN, C.N.P., M.S. [address] [place] [phone] (Mj godoy) 06/29/2022 Infusion Oncology Maria Del Rosario Gomez APRN, C.N .P., M.S. [address] [place] [phone] (Mj godoy) documented as of this encounter Visit Diagnoses Not on filedocumented in this encounter Additional Health Concerns Assessment Noted Time PHQ-9 Depression Total Score: 2 10/01/2021 10:34 AM CS T documented as of this encounter Care Teams Commercial Loan Analyst Relationship Specialty Start Date End Date Elsewhere, Pcp PCP - General Family Medicine 08/12/20 documented as of this encounter
--- OUTSIDE RECORDS SUMMARY | 2022-06-18 16:01 | XMS_ITS | Encounter Summary ---
:1965 Author Organization [facility] Address [address] [place] [id number] Care Team Providers Name Role Phone Elsewhere, Pcp Primary Care Provider Unavailable Reason for Visit Episode Based Medications (Routine) - Closed Specialty Diagnoses / Procedures Referred By Contact Refer red To Contact Diagnoses Malignant Neoplasm Of Pancreas (HCC) Secondary Malignant Neoplasm Liver (HCC) Medication Therapy Felting Machine Operator Helper Not Anticoagulant Jesse Perkins, [place] [facility] Procedures VA ONDANSETRON HCL INJECTION VA LEUCOVORIN CALCIUM INJECTION VA INJ IRINOTECAN LIPOSOME 1 MG VA FLUOROURACIL INJECTION P.A.-C., M.S. [address] [facility] [address] [place] [phone] Referral ID Status Reason Start Date Expiration Date Visits Requ ested Visits Authorized [id number] Closed 08/27/2021 08/27/2022 36 36 Encounter Details Date Type Department Care Team Description 04/06/2022 Office Visit Department of Oncology Maria Del Rosario Gomez Se Malignant Neoplasm Liver (HCC) (Primary Dx); in [place], , MACHINIST SUPERVISOR, C.N.P., Medication Therapy Felting Machine Operator Helper Not Anticoagulant; [facility] Malignant Neoplasm Of Pancreas (HCC) [address] [place] [address] [address] [place] [phone] Social History Tobacco Use Types Packs/Day Years [...] How often do you attend baptist or faith services? 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 - 04/06/2022 10:50 AM CDT SUBJECTIVE PRIMARY CARE PHYSICIAN ELSEWHERE, PCP LOCAL ONCOLOGIST No care production team member to display PRIMARY [place] ONCOLOGIST Deborah Murray M.B.B.S. Maria Del Rosario Gomez APRN, C.N.P., M.S. CHIEF COMPLAINT / REASON FOR VISIT Adam Campbell is a 56 y.o. male who presents for evaluation for person being treated on a clinical trial for metastatic pancreatic adenocarcinoma to liver. Cancer Staging Malignant Neoplasm Of Pancreas (HCC) [...] (01/25/2021 - 03/02/2021) Site: Pancreas Technique: 3D ELECTROMECHANICAL EQUIPMENT TESTER Goal: Curative Planned Treatment Start Date: 01/25/2021 01/25/2021 - 03/01/2021 Chemotherapy Gemcitabine ( with Radiation ) Start Date: 01/25/2021 08/13/2021 Genetic Testing and Tumor Genotyping [facility] pancreas panel negative 08/18/2021 - Research Study Participant Research Study: A Study to Analyze Onvansertib Treatment in Patients with Metastatic Pancreatic Ductal Adenocarcinoma ([id number]) Treatment Protocol: [facility] CRDF-001 ( Onvansertib (Days 1-5) / Fluorouracil / Leucovorin / Nanoliposomal Irinotecan ) 08/27/2021 - 11/11/2021 Research Study Participant Research Study: A Study to Analyze Onvansertib Treatment in Patients with Metastatic Pancreatic Ductal Adenocarcinoma ([id number]) Treatment Protocol: [facility] CRDF-001 ( Onvansertib (Days 1-10) / Fluorouracil / Leucovorin / Nanoliposomal Irinotecan ) Interval History, Emma Mora RN Mr. Campbell presents today for evaluation of C14, D1 on clinical trial CRDF-001 ( Onvansertib (Days 1-5) / Fluorouracil / Leucovorin / Nanoliposomal Irinotecan ). Reports that he has minimal pain that iscontrolled with half tablet of Dilaudid in the morning and evening. He denies any peripheral neuropathy today continues to have rhinorrhea. His arthralgias and myalgias are unchanged. He reports that his fatigue is minimal and he stays busy until around 5:00 p.m. when he needs to rest. Continues to have bloating and abdominal pain intermittently. He did trial taking his Protonix at 5:00 a.m. and 5:00p.m. yesterday and found that this relieved his GI symptoms. He has not required any antiemetics. Hereports normal, soft, daily bowel movements. I have discussed these findings with Maria Del Rosario Gomez APRN/CATHERINE. Interval history by Maria Del Rosario Gomez CNP. I reviewed the interval history as outlined by Emma Mora. Additionally he informs me that for the restless legs he has been taking gabapentin mainly for 3 days after therapy. He has also increased his Dilaudid to 1 full tablet twice daily. He is also trying to eat larger meals at the noon hour and less or smaller meals in the evening. Rhinitis that he is noticing has been there for over a year. The following portions of the patient's history were reviewed and updated as appropriate: allergies,current medications, family history, medical history, social history, surgical history, and problem list. CURRENT MEDICATIONS Current Outpatient Medications on File Prior to Visit Medication Sig Dispense Refill gabapentin (NEURONTIN) 300 mg capsule TAKE 2 CAPSULES(600 MG) BY MOUTH AT BEDTIME 60 capsule 1 Creon 24,000-76,000 -120,000 unit capsule TAKE 2 CAPSULES BY MOUTH WITH MEALS AND 1 TO 2 CAPSULES WITH SNACKS 240 capsule 3 heparin 100 unit/mL syringe 5 mL (500 Units total) by intra-catheter route once as needed for line care for up to 1 dose. Flush IV line AFTER 0.9% Sodium Chloride flush 60 mL 3 HYDROmorphone (DILAUDID) 4 mg tablet Take 0.5-1 tablets (2-4 mg total) by mouth every 6 (six) hoursas needed for pain Indication: Chronic Pain/Nonacute Pain. 60 tablet 0 levoFLOXacin (LEVAQUIN) 750 mg tablet Take 750 mg by mouth daily. for 7 days lidocaine-prilocaine (EMLA) 2.5-2.5 % cream Apply 1 application topically as needed for pain. Applyto port site. 30 g 3 LORazepam (Ativan) 0.5 mg tablet Take 1 tablet (0.5 mg total) by mouth every 6 (six) hours as needed for anxiety. 10 tablet 0 medical cannabis capsule Take by mouth. THC component: CBD component: ondansetron (ZOFRAN) 8 mg tablet Take 1 tablet (8 mg total) by mouth every 8 (eight) hours as needed for nausea or vomiting. 30 tablet 3 pantoprazole (PROTONIX) 40 mg EC tablet TAKE 1 TABLET BY MOUTH EVERY MORNING BEFORE BREAKFAST. 90 tablet 0 polyethylene glycol (MIRALAX) 17 gram [...] file prior to visit. REVIEW OF SYSTEMS Constitutional: Positive for fatigue. Skin: Positive for nipple discharge. Neurological: Positive for numbness or shooting pain in hands, arms, legs, or feet. All other systems reviewed and are negative. OBJECTIVE BP 100/65 (BP Location: Left arm, Patient Position: Sitting, Cuff Size: Regular) Pulse 91 Temp 36.5 ??C (Tympanic) Resp 16 Ht 177.3 cm Wt 70.2 kg SpO2 98% BMI 22.33 kg/m?? PHYSICAL EXAMINATION General: Well appearing 56 y.o. who is in no apparent distress. Appears to be at ECOG performance status 0 Skin: Non-jaundice. No rashes. Eyes: No scleral icterus Lungs: Nonlabored, absent of a cough. Extremities: No edema Neuro: Alert and oriented x 3. Calm interactive and appropriate. No focal neuro deficits. LABORATORY DATA Lab data reviewed. ASSESSMENT / PLAN #1 Secondary Malignant Neoplasm Liver (HCC) #2 Medication Therapy Felting Machine Operator Helper Not Anticoagulant #3 Malignant Neoplasm Of Pancreas (HCC) Prior to meeting with Mr. Campbell I had the opportunity to review his past medical records, laboratorytests and at this time it appears that he is tolerating his present treatment well. We will proceed with his next cycle of treatment. In regards to his lymphocyte counts when reviewing his case before starting therapy his baseline lymphocyte count was between 0.29 and 0.72. Even though this is a grade 2-3 it is his baseline, prior totreatment lymphocyte level. We will see him back in clinic as per study protocol. He is in full agreement the plan. Denies any further questions or concerns. Has our telephone number to contact us should they have any further questions or concerns. PATIENT EDUCATION Ready to learn, no apparent learning barriers were identified; learning preferences include listening. Explained diagnosis and treatment plan; patient expressed understanding of the content. ADMINISTRATIVE BILLING I personally spent 44 minutes in care of the patient today. Time includes both non face to face and face to face patient care. documented in this encounter Plan of Treatment Upcoming Encounters Date Type Specialty Care Team Description 06/22/2022 Lab Laboratory Medicine Maria Del Rosario Gomez AP RN, C.N.P., M.S. [address] [place] [phone] (Mj godoy) 06/22/2022 Infusion Oncology Maria Del Rosario Gomez APRN, C.N .P., M.S. [address] [place] [phone] (Mj godoy) 06/29/2022 Lab Laboratory Medicine HartgersMaria Del Rosario AP RN, C.N.P., M.S. [address] [place], [place] [phone] (Mj rk) 06/29/2022 Infusion Oncology Maria Del Rosario Gomez APRN, Remy.N .Pamela., M.S. [address] [place], [place] [phone] (Mj godoy) documented as of this encounter Visit Diagnoses Diagnosis Secondary Malignant Neoplasm Liver (HCC) - Primary Medication Therapy Mcfp Not Anticoa gulant Malignant Neoplasm Of Pancreas (HCC) documented in this encounter Additional Health Concerns Assessment Noted Time PHQ-9 Depression Total Score: 2 10/01/2021 10:34 AM CS T documented as of this encounter Care Teams Sales Agent Relationship Specialty Start Date End Date Elsewhere, Pcp PCP - General Family Medicine 08/12/20 documented as of this encounter
--- OUTSIDE RECORDS SUMMARY | 2022-06-18 16:01 | XMS_ITS | Encounter Summary ---
:1965 Author Organization [facility] Address [address] [place] [address] Care Team Providers Name Role Phone Elsewhere, Pcp Primary Care Provider Unavailable Encounter Details Date Type Department Care Team Description 04/04/2022 Clinical Communication Department of Oncology Taina Mora, in [facility] [phone] [address] [facility] [place] (Work) [place] [address] Social History Tobacco Use Types Packs/Day Years [...] How often do you attend hinduism or scientologist services? 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 - 04/04/2022 8:48 AM CDT ASSESSMENT I followed up with Mr. 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 He continues to have gas, bloating, nausea and vomiting. He notes this is not new for him and happens intermittently during treatment. He just does not feel well enough to receive treatment today.He hopes to be rescheduled for tomorrow to discuss symptom optimization and potentially receive treatment. He notes that his current plan to manage these symptoms does help. He has spoken with our providers in the past. He takes creon and focuses on mostly clear liquid and light soups. He finds this is helpful when accompanied with rest. He has not required any antiemetics. He notes he does have them if heneeds them. We also discussed drinking pedialyte if oral intake is limited. He notes that he has no issue keeping down liquids at this time. Denies diarrhea. He does have a lot of bloating and flatulence. PLAN Reschedule in the clinic for tomorrow. Take antiemetics as needed and continue creon as prescribed. Focus on getting plenty of fluids. Disposition/Recommendation: See above . Information/Education: patient/caller able to teach back. Caller agreeable to plan of care: yes. The following references were used: nursing clinical judgement. documented in this encounter Plan of Treatment Upcoming Encounters Date Type Specialty Care Team Description 06/22/2022 Lab Laboratory Medicine Maria Del Rosario Gomez AP RN, C.N.P., M.S. [address] [place] [phone] (Mj godoy) 06/22/2022 Infusion Oncology Maria Del Rosario Gomez APRN, C.N .P., M.S. [address] [place] [phone] (Mj godoy) 06/29/2022 Lab Laboratory Medicine Maria Del Rosario Gomez AP RN, C.N.P., M.S. [address] [place] [phone] (Wo rk) 06/29/2022 Infusion Oncology Maria Del Rosario Gomez APRN C.N .P., M.S. [address] [place], [place] [phone] (Wo rk) documented as of this encounter Visit Diagnoses Not on filedocumented in this encounter Additional Health Concerns Assessment Noted Time PHQ-9 Depression Total Score: 2 10/01/2021 10:34 AM CS T documented as of this encounter Care Teams Java Manager Relationship Specialty Start Date End Date Elsewhere, Pcp PCP - General Family Medicine 08/12/20 documented as of this encounter
--- OUTSIDE RECORDS SUMMARY | 2022-06-18 16:01 | XMS_ITS | Encounter Summary ---
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 [address] [place] [address] [address] [place] [phone] Referral ID Status Reason Start Date Expiration Date Visits Requ ested Visits Authorized [id number] Closed 08/27/2021 08/27/2022 36 36 Encounter Details Date Type Department Care Team Description 03/21/2022 Lab Department of Laboratory Everette Zarco Secondary Malignant Neoplasm Liver (HCC) (Primary Dx); Medicine and Pathology, R, M.D. Medication Therapy Group Home Not Anticoa gukednallt; Hernan Donato, in [address] [place] [address] Malignant Neoplasm Of Pancreas (HCC); [place], [place] Bacteremia [address] [place] [phone] [place] [address] [phone] Social History Tobacco Use Types Packs/Day Years [...] er 01/15/2021 How often do you attend yarsani or mormon services? 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 [address] [place] [phone] (Mj godoy) 06/22/2022 Infusion Oncology Maria Del Rosario Gomez APRN, C.N .P., M.S. [address] [place] [address] [phone] (Mj godoy) 06/29/2022 Lab Laboratory Medicine Maria Del Rosario Gomez AP RN, C.N.P., M.S. [address] [place] [address] [phone] (Mj godoy) 06/29/2022 Infusion Oncology Maria Del Rosario Gomez APRN, C.N .P., M.S. [address] [place] [address] [phone] (Mj godoy) documented as of this encounter Procedures Procedure Name Priority Date/Time Associated Comments Diagnosis CBC WITH DIFFERENTIAL, B Routine 03/21/2022 7:47 Secondary Results for this AM CDT Malignant Neoplasm procedure are in Liver (HCC) the results Medication Therapy section. [employer] Not Anticoagulant Malignant Neoplasm Of Pancreas (HCC) ALANINE AMINOTRANSFERASE Routine 03/21/2022 7:47 Secondary Results for this (ALT), S/P AM CDT Malignant Neoplasm procedure are in Liver (HCC) the results Medication Therapy section. [employer] Not Anticoagulant Malignant Neoplasm Of Pancreas (HCC) ASPARTATE Routine 03/21/2022 7:47 Secondary Results for this AMINOTRANSFERASE (AST), AM CDT Malignant Neoplas m procedure are in S/P Liver (HCC) the results Medication Therapy section. [employer] Not Anticoagulant Malignant Neoplasm Of Pancreas (HCC) PHOSPHORUS (INORGANIC), Routine 03/21/2022 7:47 Secondary R esults for this S AM CDT Malignant Neoplasm procedure are in Liver (HCC) the results Medication Therapy section. [employer] Not Anticoagulant Malignant Neoplasm Of Pancreas (HCC) ALKALINE PHOSPHATASE, Routine 03/21/2022 7:47 Secondary Res ults for this S/P AM CDT Malignant Neoplasm procedure are in Liver (HCC) the results Medication Therapy section. [employer] Not Anticoagulant Malignant Neoplasm Of Pancreas (HCC) MAGNESIUM, S Routine 03/21/2022 7:47 Secondary Results for this AM CDT Malignant Neoplasm procedure are in Liver (HCC) the results Medication Therapy section. Group Home Not Anticoagulant Malignant Neoplasm Of Pancreas (HCC) BILIRUBIN, TOT, S/P Routine 03/21/2022 7:47 Secondary Resul ts for this AM CDT Malignant Neoplasm procedure are in Liver (HCC) the results Medication Therapy section. Group Home Not Anticoagulant Malignant Neoplasm Of Pancreas (HCC) ALBUMIN, S/P Routine 03/21/2022 7:47 Secondary Results for this AM CDT Malignant Neoplasm procedure are in Liver (HCC) the results Medication Therapy section. [employer] Not Anticoagulant Malignant Neoplasm Of Pancreas (HCC) BASIC METABOLIC PANEL, Routine 03/21/2022 7:47 Secondary Re sults for this S/P AM CDT Malignant Neoplasm procedure are in Liver (HCC) the results Medication Therapy section. [employer] Not Anticoagulant Malignant Neoplasm Of Pancreas (HCC) documented in this encounter Results ALT (Alanine Aminotransferase) (03/21/2022 7:47 AM CDT) [facility] Method Time Signature Alanine 35 7 - 55 03/21/2022 DTL Aminotransferase U/L 10:16 AM CDT (ALT), S Specimen Anatomical Collection Method Collection Time Receive d Time (Source) Location / / Volume Laterality Blood (Blood, 03/21/2022 7:47 AM 03/21/20 22 8:10 Venous) CDT AM CDT Vladislav Zarco M.D. LAB BLOOD ADD-ON Performing Organization Address City/State/ZIP Code Phon e Number [facility] - [address] [place], [place] [address] [facility] DTL [address] AST (Aspartate Aminotransferase) (03/21/2022 7:47 AM CDT) Patholo gist Method Time Signature Aspartate 36 8 - 48 03/21/2022 M[facility] Aminotransferase U/L 8:22 AM CDT (AST), P Specimen Anatomical Collection Method Collection Time Receive d Time (Source) Location / / Volume Laterality Blood (Blood, 03/21/2022 7:47 AM 03/21/20 22 7:53 Venous) CDT AM CDT lVadislav Zarco M.D. LAB BLOOD ADD-ON Performing Organization Address City/State/ZIP Code Phon e Number [facility] - [address] [place], [place] [address] [place] [address] [facility] [address] Bilirubin, Total (03/21/2022 7:47 AM CDT) P athologist Signature Bilirubin, 0.4 <=1.2 mg/dL 03/21/2022 M[facility] Total, P 8:22 AM CDT Specimen Anatomical Collection Method Collection Time Receive d Time (Source) Location / / Volume Laterality Blood (Blood, 03/21/2022 7:47 AM 03/21/20 22 7:53 Venous) CDT AM CDT Vladislav Zarco M.D. LAB BLOOD ADD-ON Performing Organization Address City/State/ZIP Code Phon e Number [facility] - [address] [place], [place] [address] [facility] [place] [address] [facility] [address] (ABNORMAL) Alkaline Phosphatase (03/21/2022 7:47 AM CDT) P athologist Signature Alkaline 251 (H) 40 - 129 03/21/2022 DTL Phosphatase, S U/L 10:16 AM CDT Specimen Anatomical Collection Method Collection Time Receive d Time (Source) Location / / Volume Laterality Blood (Blood, 03/21/2022 7:47 AM 03/21/20 22 8:10 Venous) CDT AM CDT Vladislav Zarco M.D. LAB BLOOD ADD-ON Performing Organization Address City/State/ZIP Code Phon e Number [facility] - [address] 200 [facility] Magnesium (03/21/2022 7:47 AM CDT) athologist Signature Magnesium, S 2.2 1.7 - 2.3 03/21/2022 DTL mg/dL 10:16 AM CDT Specimen Anatomical Collection Method Collection Time Receive d Time (Source) Location / / Volume Laterality Blood (Blood, 03/21/2022 7:47 AM 03/21/20 22 8:10 Venous) CDT AM CDT Vladislav Zarco M.D. LAB BLOOD ADD-ON Performing Organization Address City/[facility]/ZIP Code Phon e Number [facility] - [address] Phosphorus Inorganic (03/21/2022 7:47 AM CDT) athologist Signature Phosphorus 3.7 2.5 - 4.5 03/21/2022 DTL (Inorganic), S mg/dL 10:16 AM CDT Specimen Anatomical Collection Method Collection Time Receive d Time (Source) Location / / Volume Laterality Blood (Blood, 03/21/2022 7:47 AM 03/21/20 22 8:10 Venous) CDT AM CDT Vladislav Zarco M.D. LAB BLOOD ADD-ON Performing Organization Address City/State/ZIP Code Phon e Number [facility] - 200 [place], [place] [address] [place] [address] [facility] 200 [address] [facility] Albumin (03/21/2022 7:47 AM CDT) athologist Signature Albumin, S 3.6 3.5 - 5.0 03/21/2022 DT g/dL 10:16 AM CDT Specimen Anatomical Collection Method Collection Time Receive d Time (Source) Location / / Volume Laterality Blood (Blood, 03/21/2022 7:47 AM 03/21/20 8:10 Venous) CDT AM CDT Vladislav Zarco M.D. LAB BLOOD ADD-ON Performing Organization Address City/State/ZIP Code Phon e Number [facility] - [address] [place], [place] [address] [place] [address] [facility] 200 [facility] (ABNORMAL) Basic Metabolic Panel (03/21/2022 7:47 AM CDT) athologist Signature Potassium, P 4.0 3.6 - 5.2 03/21/2022 METH mmol/L 8:22 AM CDT Sodium, P 138 135 - 145 03/21/2022 METH mmol/L 8:22 AM CDT Chloride, P 101 98 - 107 03/21/2022 METH mmol/L 8:22 AM CDT Bicarbonate, P 24 22 - 29 03/21/2022 METH mmol/L 8:22 AM CDT Anion Gap, P 13 7 - 15 03/21/2022 M[facility] 8:22 AM CDT BUN (Blood Urea 10 8 - 24 03/21/2022 [facility] Nitrogen), P mg/dL 8:22 AM CDT Creatinine 0.90 0.74 - 03/21/2022 METH 1.35 mg/dL 8:22 AM CDT eGFR-Black/Afric >90 >=60 03/21/2022 METH an Indonesian mL/min/BSA 8:22 AM CDT Comment: ----ADDITIONAL INFORMATION---- Estimated GFR calculated using the 2009 CKD_EPI creatinine equation. eGFR Non-Black/ >90 >=60 mL/min/BSA 03/21/2022 8:22 AM CDT METH Comment: ----ADDITIONAL INFORMATION---- Estimated GFR calculated using the 2009 CKD_EPI creatinine equation. Calcium, Total, P 9.0 8.6 - 10.0 mg/dL 03/21/2022 8:22 AM CDT METH Glucose, P 171 (H) 70 - 140 mg/dL 03/21/2022 8:22 AM CDT M ETH Specimen Anatomical Collection Method Collection Time Receive d Time (Source) Location / / Volume Laterality Blood (Blood, 03/21/2022 7:47 AM 03/21/20 7:53 Venous) CDT AM CDT Vladislav Zarco M.D. LAB BLOOD ADD-ON Performing Organization Address City/State/ZIP Code Phon e Number [facility] - [address] [place], [place] [address] [facility] [place] [address] [facility] [address] (ABNORMAL) CBC with Differential, Blood (03/21/2022 7:47 AM CDT) [facility] gist Method Time Signature Hemoglobin 11.0 (L) 13.2 - 03/21/2022 DTL 16.6 g/dL 8:22 AM CDT Hematocrit 34.8 (L) 38.3 - 03/21/2022 DTL 48.6 % 8:22 AM CDT Erythrocytes 4.11 (L) 4.35 - 03/21/2022 DTL 5.65 8:22 AM CDT x10(12)/L MCV 84.7 78.2 - 03/21/2022 DTL 97.9 fL 8:22 AM CDT RBC Distrib Width 16.4 (H) 11.8 - 03/21/2022 DTL 14.5 % 8:22 AM CDT Platelet Count 323 (H) 135 - 317 03/21/2022 DTL x10(9)/L 8:22 AM CDT Leukocytes 6.0 3.4 - 9.6 03/21/2022 DTL x10(9)/L 8:22 AM CDT Neutrophils 4.66 1.56 - 03/21/2022 DTL 6.45 8:22 AM CDT x10(9)/L Lymphocytes 0.54 (L) 0.95 - 03/21/2022 DTL 3.07 8:22 AM CDT x10(9)/L Monocytes 0.59 0.26 - 03/21/2022 DTL 0.81 8:22 AM CDT x10(9)/L Eosinophils 0.12 0.03 - 03/21/2022 DTL 0.48 8:22 AM CDT x10(9)/L Basophils 0.04 0.01 - 03/21/2022 DTL 0.08 8:22 AM CDT x10(9)/L Specimen Anatomical Collection Method Collection Time Receive d Time (Source) Location / / Volume Laterality Blood (Blood, 03/21/2022 7:47 AM 03/21/20 7:57 Venous) CDT AM CDT Vladislav Zarco M.D. LAB BLOOD ADD-ON Performing Organization Address City/State/ZIP Code Phon e Number [facility] - [address] [place], [place] [address] [facility] [place] [address] [facility] [address] documented in this encounter Visit Diagnoses Diagnosis Secondary Malignant Neoplasm Liver (HCC) - Primary Medication Therapy Group Home Not Anticoa gulant Malignant Neoplasm Of Pancreas (HCC) Bacteremia documented in this encounter Administered Medications Inactive Administered Medications - up to 3 most recent administrations Medication Order MAR Action Action Date Dose Rate Site heparin flush 500 Units Given 03/21/2022 7:44 AM CDT 500 Units 500 Units, intra-catheter, As needed, line care, Starting on Mon03/21/22 at 0733, When no infusion to maintain patency: For IVAD accessed, not in use, and/or prior to hospital discharge, flush every 7 days after 0.9% preservative-free NaCL flush. For IVAD NOT accessed or used, flush every 4 weeks after 0.9% preservative-free NaCL flush. sodium chloride 0.9 % injection 10 mL Given 03/21/2022 7:43 AM CDT 10 mL 10 mL, intra-catheter, As needed, line care, Starting on Mon03/21/22 at 0733, When IVAD Accessed and in Use: Flush prior to and following infusion, between multiple consecutive infusions, and prior to blood sampling. sodium chloride 0.9 % injection 20 mL Given 03/21/2022 7:44 AM CDT 20 mL 20 mL, intra-catheter, As needed, line care, Starting on Mon03/21/22 at 0733, When IVAD Accessed and in Use: Flush post blood transfusion or post blood sampling. documented in this encounter Additional Health Concerns Assessment Noted Time PHQ-9 Depression Total Score: 2 10/01/2021 10:34 AM CS T documented as of this encounter Care Teams Electric Deicer Assembler Relationship Specialty Start Date End Date Elsewhere, Pcp PCP - General Family Medicine 08/12/20 documented as of this encounter
--- OUTSIDE RECORDS SUMMARY | 2022-06-18 16:01 | XMS_ITS | Encounter Summary ---
:1965 Author Organization [facility] Address [address] [place] [address] Care Team Providers Name Role Phone Elsewhere, Pcp Primary Care Provider Unavailable Encounter Details Date Type Department Care Team Description 04/06/2022 Clinical Communication Department of Oncology Taina Mora, in [facility] [phone] [address] [facility] (Work) [place] [address] Social History Tobacco Use Types Packs/Day Years [...] er 01/15/2021 How often do you attend confucianist or zoroastrianism services? Never 01/15/2021 Do you belong to any clubs or organizations such as confucianist N o 01/15/2021 groups, unions, fraternal or [...] place to sleep or slept in a care home (including now)? Education Answer Date Recorded What is the highest level of school you have completed or 12 th grade 01/15/2021 the highest degree you have received? 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 [address] [place] [address] [phone] (Mj rk) 06/22/2022 [facility], C.N .P., M.S. [address] [place] [phone] (Mj rk) 06/29/2022 [facility] RN, C.N.P., M.S. [address] [place] [phone] (Mj godoy) 06/29/2022 [facility] APRN, C.N .P., M.S. [address] [place] [phone] (Mj godoy) documented as of this encounter Visit Diagnoses Not on filedocumented in this encounter Additional Health Concerns Assessment Noted Time PHQ-9 Depression Total Score: 2 10/01/2021 10:34 AM CS T documented as of this encounter Care Teams Audio Visual Equipment Rental Clerk Relationship Specialty Start Date End Date Elsewhere, Pcp PCP - General Family Medicine 08/12/20 documented as of this encounter
--- OUTSIDE RECORDS SUMMARY | 2022-06-18 16:01 | XMS_ITS | Encounter Summary ---
:1965 Author Organization [facility] Address [address] [place] [address] Care Team Providers Name Role Phone Elsewhere, Pcp Primary Care Provider Unavailable Encounter Details Date Type Department Care Team Description 03/08/2022 Orders Only Department of Oncology Tamara Escobar Medication Therapy Shelter Not Anticoa gulant (Primary Dx); in [place], Secondary Rachel gnant Neoplasm Liver (HCC); [place] (Work) Malignant Neoplasm Of Pancre as (HCC) [address] [place] [address] Social History Tobacco Use Types Packs/Day Years [...] er 01/15/2021 How often do you attend christian or judaism services? 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 [address] [place] [phone] (Wo rk) 06/22/2022 Infusion Oncology Maria Del Rosario Gomez APRN, C.N .P., M.S. [address] [place] [phone] (Wo rk) 06/29/2022 Lab Laboratory Medicine Maria Del Rosario Gomez AP RN, C.N.P., M.S. [address] [place] [phone] (Wo rk) 06/29/2022 Infusion Oncology Maria Del Rosario Gomez APRN, C.N .P., M.S. 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
--- OUTSIDE RECORDS SUMMARY | 2022-06-18 16:01 | XMS_ITS | Encounter Summary ---
:1965 Author Organization [facility] Address [address] [place] [id number] Care Team Providers Name Role Phone Elsewhere, Pcp Primary Care Provider Unavailable Reason for Visit Reason Comments Treatment Pre chemo Episode Based Medications (Routine) - Closed Specialty Diagnoses / Procedures Referred By Contact Refer red To Contact Diagnoses Malignant Neoplasm Of Pancreas (HCC) Secondary Malignant Neoplasm Liver (HCC) Medication Therapy Prison Not Anticoagulant Jesse Perkins, [place] [facility] Procedures IN [facility] HCL INJECTION IN LEUCOVORIN CALCIUM INJECTION IN INJ IRINOTECAN LIPOSOME 1 MG IN FLUOROURACIL INJECTION P.A.-C., M.S. 200 [facility] 200 [place] [phone] Referral ID Status Reason Start Date Expiration Date Visits Requ ested Visits Authorized [id number] Closed 08/27/2021 08/27/2022 36 36 Encounter Details Date Type Department Care Team Description 03/21/2022 Office Visit Department of Maria Del Rosario Gomez APRN, C.N.P., M.S. [address] [place] [phone] Secondary Malignant Neoplasm Liver (HCC) (Primary Dx); Oncology in Anya Glass APRN, C.N.P. [address] [place] [phone] Medication Therapy Printing Services Coordinator Not Anticoa gulant; [place], [place] Malignant Neoplasm Of Pancre as (HCC) [address] [place] [address] Social History Tobacco Use Types Packs/Day Years [...] How often do you attend voodoo or yazidism services? 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 - 03/21/2022 8:50 AM CDT PRIMARY CARE PHYSICIAN ELSEWHERE, PCP REQUESTING PROVIDER Jesse Perkins P.A.-C., M.S. [address] [place] [phone] LOCAL ONCOLOGIST No care team sports sales associate to display PRIMARY ALMA ONCOLOGIST Deborah Murray M.B.B.S. Maria Del Rosario Gomez APRN, C.N.P., M.S. REASON FOR CONSULT Adam Campbell is a 56 y.o. male who presents for evaluation of metastatic pancreatic adenocarcinoma HISTORY OF PRESENT ILLNESS: Mr. Campbell is a 56 y.o. male with the following oncologic history: Oncology History Malignant Neoplasm Of Pancreas (HCC) [...] (01/25/2021 - 03/02/2021) Site: Pancreas Technique: 3D SUPERINTENDENT CONCRETE MIXING PLANT Goal: Curative Planned Treatment Start Date: 01/25/2021 01/25/2021 - 03/01/2021 Chemotherapy Gemcitabine ( with Radiation ) Start Date: 01/25/2021 08/13/2021 Genetic Testing and Tumor Genotyping [facility] pancreas panel negative 08/18/2021 - Research Study Participant Research Study: A Study to Analyze Onvansertib Treatment in Patients with Metastatic Pancreatic Ductal Adenocarcinoma ([id number]) Treatment Protocol: [facility] CRDF-001 ( Onvansertib (Days 1-5) / Fluorouracil / Leucovorin / Nanoliposomal Irinotecan ) 08/27/2021 - 11/11/2021 Research Study Participant Research Study: A Study to Analyze Onvansertib Treatment in Patients with Metastatic Pancreatic Ductal Adenocarcinoma ([id number]) Treatment Protocol: [facility] CRDF-001 ( Onvansertib (Days 1-10) / Fluorouracil / Leucovorin / Nanoliposomal Irinotecan ) INTERVAL HISTORY: Mr. Campbell for reevaluation. Since last seen, Mr. Campbell has been on a break to recover it is doing well. Please refer to the flow sheet for specifics. ROS: Pertinent items are noted in HPI; all other review of systems were negative. VITAL SIGNS: Vitals: 03/21/22 0853 BP: 96/65 BP Location: Right arm Patient Position: Sitting Cuff Size: Regular Pulse: 93 Temp: (!) 35.9 ??C TempSrc: Tympanic SpO2: 98% Weight: 72 kg Height: 179.5 cm PHYSICAL EXAM: General: Well appearing 56 y.o. who is in no apparent distress. Appears to be at ECOG performance status 0 Skin: Non-jaundice. No rashes. Eyes: No scleral icterus ENT: Oral mucosa is pink and moist. No lesions, ulcerations or thrush. Lymph: No palpable cervical, submandibular, or supraclavicular lymph nodes Heart: Regular, rate and rhythm. No murmurs, rubs or gallops Lungs: Clear to auscultation bilaterally Abdomen: Soft, nontender, nondistended. Normoactive bowel sounds. No hepatomegaly. Extremities: No edema Neuro: Alert and oriented x 3. Calm interactive and appropriate. No focal neuro deficient. Reports: Labs and imaging have been reviewed. DIAGNOSTICS: I reviewed the pertinent laboratory and diagnostic data. ASSESSMENT/PLAN: #1 Metastatic pancreatic adenocarcinoma I have reviewed all above in depth with Mr. Campbell and his daughter. Overall, he is doing well and has recovered from his illness and is ready to reinitiate systemic chemotherapy. We will not make any modifications to the doses as we believe the side effects were caused by separate infectious process and not from his chemotherapy. His blood pressure is slightly low today, I will give him a L of IV fluids. We will see him back per trial protocol if there is any concerns or questions interim he knows not to hesitate to contact us. He is comfortable this plan. PATIENT EDUCATION Ready to learn, no apparent learning barriers were identified; learning preferences include listening. Explained diagnosis and treatment plan; patient expressed understanding of the content. ADMINISTRATIVE BILLING Total time spent in counseling 40 mins. documented in this encounter Plan of Treatment Upcoming Encounters Date Type Specialty Care Team Description 06/22/2022 Lab Laboratory Medicine Maria Del Rosario Gomez AP RN, C.N.P., M.S. [address] [place] [phone] (Mj godoy) 06/22/2022 Infusion Oncology Maria Del Rosario Gomez APRN, C.N .P., M.S. [address] [place] [phone] (Mj godoy) 06/29/2022 Lab Laboratory Medicine Maria Del Rosario Gomez AP RN, C.N.P., M.S. [address] [place] [phone] (Mj godoy) 06/29/2022 Infusion Oncology Maria Del Rosario Gomez APRN, C.N .P., M.S. [address] [place] [phone] (Mj godoy) documented as of this encounter Visit Diagnoses Diagnosis Secondary Malignant Neoplasm Liver (HCC) - Primary Medication Therapy Prison Not Anticoa gulant Malignant Neoplasm Of Pancreas (HCC) documented in this encounter Additional Health Concerns Assessment Noted Time PHQ-9 Depression Total Score: 2 10/01/2021 10:34 AM CS T documented as of this encounter Care Teams Floating Operator Relationship Specialty Start Date End Date Elsewhere, Pcp PCP - General Family Medicine 08/12/20 documented as of this encounter
--- OUTSIDE RECORDS SUMMARY | 2022-06-18 16:01 | XMS_ITS | Encounter Summary ---
:1965 Author Organization [facility] Address [address] [place] [phone] Care Team Providers Name Role Phone Elsewhere, Pcp Primary Care Provider Unavailable Reason for Visit Outpatient (Routine) - Closed Specialty Diagnoses / Procedures Referred By Contact Refer red To Contact Diagnoses Malignant Neoplasm Of Pancreas (HCC) Vladislav Zarco M.D. [facility] Procedures Perform central rubber liner: De-access port [address] [place] [phone] Referral ID Status Reason Start Date Expiration Date Visits Requ ested Visits Authorized [id number] Closed 03/08/2022 03/08/2023 1 1 Encounter Details Date Type Department Care Team Description 03/08/2022 Infusion Department of Oncology Vladislav Zarco Malignant Neoplasm Of Pancreas (HCC) (Primary Dx); in [facility] elke Pereira M.D. Bacteremia [address] [place] [address] [address] [place] [phone] (Wo rk) Social History Tobacco Use Types [...] er 01/15/2021 How often do you attend mormonism or buddhism services? 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 [address] [place] [phone] (Mj rk) 06/22/2022 Infusion Oncology Maria Del Rosario Gomez APRN, C.N .P., M.S. [address] [place] [phone] (Mj rk) 06/29/2022 Lab Laboratory Medicine Maria Del Rosario Gomez AP RN, C.N.P., M.S. [address] [place] [phone] (Mj rk) 06/29/2022 Infusion Oncology Maria Del Rosario Gomez APRN, C.N .P., M.S. [address] [place] [phone] (Mj godoy) documented as of this encounter Visit Diagnoses Diagnosis Malignant Neoplasm Of Pancreas (HCC) - P rimary Bacteremia documented in this encounter Administered Medications Inactive Administered Medications - up to 3 most recent administrations Medication Order MAR Action Action Date Dose Rate Site heparin flush 500 Units Given 03/08/2022 2:35 PM CDT 500 Units 500 Units, intra-catheter, As needed, line care, Starting on Mon03/08/22 at 1428, When no infusion to maintain patency: For IVAD accessed, not in use, and/or prior to hospital discharge, flush every 7 days after 0.9% preservative-free NaCL flush. For IVAD NOT accessed or used, flush every 4 weeks after 0.9% preservative-free NaCL flush. sodium chloride 0.9 % injection 10 mL Given 03/08/2022 2:35 PM CDT 10 mL 10 mL, intra-catheter, As needed, line care, Starting on Mon03/08/22 at 1428, When IVAD Accessed and in Use: Flush prior to and following infusion, between multiple consecutive infusions, and prior to blood sampling. documented in this encounter Additional Health Concerns Assessment Noted Time PHQ-9 Depression Total Score: 2 10/01/2021 10:34 AM CS T documented as of this encounter Care Teams Flight Operations Dispatch Clerk Relationship Specialty Start Date End Date Elsewhere, Pcp PCP - General Family Medicine 08/12/20 documented as of this encounter
--- OUTSIDE RECORDS SUMMARY | 2022-06-18 16:01 | XMS_ITS | Encounter Summary ---
:1965 Author Organization [facility] Address [address] [place] [address] Care Team Providers Name Role Phone Elsewhere, Pcp Primary Care Provider Unavailable Encounter Details Date Type Department Care Team Description 03/14/2022 Clinical Communication Department of Hattie Ferreira Oncology in M.DRiaz, Ph.D. [place], [place] [address] [facility] [address] [place] [phone] Social History Tobacco Use Types Packs/Day Years [...] How often do you attend voodoo or cheondoism services? 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 - 03/14/2022 10:03 AM CDT He had bronchiolitis diagnosed around 03/08/2022. Although chemotherapy was due at that time, it was postponed until this week to allow recovery. At the time, the etiology was presumed related to a viral infection. He is now calling with recurring and worsening fevers (101.3F highest at 10 PM), chills last night, clothes were wet, and continued coughing. O2 staturations 91% on home machine, room air. My concern is that he may have developed a bacterial pneumonia as a consequence of prior viral bronchiolitis. Although he is not neutropenic, his symptoms have gotten worse. I recommended evaluation athis local emergency department. I did not recommend travel directly to [facility]. Instead, his local emergency department can perform blood cultures, perform workup for pneumonia,and if needed, begin antibiotics. If he requires hospitalization, there could be a discussion with 1of the inpatient teams at [facility], especially considering he is on a clinical trial. documented in this encounter Plan of Treatment Upcoming Encounters Date Type Specialty Care Team Description 06/22/2022 Lab Laboratory Medicine Maria Del Rosario Gomez AP RN, C.N.P., M.S. [address] [place] [phone] (Mj godoy) 06/22/2022 Infusion Oncology Maria Del Rosario Gomez APRN, C.N .P., M.S. [address] [place] [phone] (Mj godoy) 06/29/2022 Lab Laboratory Medicine Maria Del Rosario Gomez AP RN, C.N.P., M.S. [address] [place] [phone] (Mj godoy) 06/29/2022 Infusion Oncology Maria Del Rosario Gomez APRN, C.N .P., M.S. [address] [place], [place] [phone] (Wo rk) documented as of this encounter Visit Diagnoses Not on filedocumented in this encounter Additional Health Concerns Assessment Noted Time PHQ-9 Depression Total Score: 2 10/01/2021 10:34 AM CS T documented as of this encounter Care Teams Dough Puncher Relationship Specialty Start Date End Date Elsewhere, Pcp PCP - General Family Medicine 08/12/20 documented as of this encounter
--- OUTSIDE RECORDS SUMMARY | 2022-06-18 16:01 | XMS_ITS | Encounter Summary ---
:1965 Author Organization [facility] Address [address] [place] [address] Care Team Providers Name Role Phone Elsewhere, Pcp Primary Care Provider Unavailable Encounter Details Date Type Department Care Team Description 04/04/2022 Documentation Department of Oncology in [place], [place] Chanelle [address] [facility] [address] [place] [phone] [place], [place] [phone] (Wo rk) Social History Tobacco Use Types [...] er 01/15/2021 How often do you attend taoist or mu-ism services? 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 - 04/04/2022 6:25 AM CDT Received a call this morning from the patient as the on-call oncology provider. The patient has beenfeeling very poorly this morning with 1 very soft bowel movement and then while on the call began retching and vomiting. He was scheduled to have lab draw this morning and appointment in anticipation of chemotherapy infusion, however given his symptomatology he felt unwell to present to these. I agreed that these likely need to be resche duled, and he will call the nurse line when it opens to do this. Additionally, we discussed symptom management and he does have sufficient supply of antiemetic medications at home for this purpose. I also encouraged him to reach back out to the line if his vomitingpersists today, which he will do so. He was understanding and in agreement with the plan going forward. documented in this encounter Miscellaneous Notes Miscellaneous - Denton Bernstein M.D. - 04/04/2022 6:25 AM CDT Received a call this morning from the patient as the on-call oncology provider. The patient has beenfeeling very poorly this morning with 1 very soft bowel movement and then while on the call began retching and vomiting. He was scheduled to have lab draw this morning and appointment in anticipation of chemotherapy infusion, however given his symptomatology he felt unwell to present to these. I agreed that these likely need to be resche duled, and he will call the nurse line when it opens to do this. Additionally, we discussed symptom management and he does have sufficient supply of antiemetic medications at home for this purpose. I also encouraged him to reach back out to the line if his vomitingpersists today, which he will do so. He was understanding and in agreement with the plan going forward. documented in this encounter Plan of Treatment Upcoming Encounters Date Type Specialty Care Team Description 06/22/2022 [facility] [address] [place] [phone] ( rk) 06/22/2022 [facility] [address] [place] [phone] (Mj rk) 06/29/2022 [facility] [address] [place] [phone] (Mj rk) 06/29/2022 [facility]. [address] [place] [phone] (Mj rk) documented as of this encounter Visit Diagnoses Not on filedocumented in this encounter Additional Health Concerns Assessment Noted Time PHQ-9 Depression Total Score: 2 10/01/2021 10:34 AM CS T documented as of this encounter Care Teams Surgical Endoscopist Relationship Specialty Start Date End Date Elsewhere, Pcp PCP - General Family Medicine 08/12/20 documented as of this encounter
--- OUTSIDE RECORDS SUMMARY | 2022-06-18 16:01 | XMS_ITS | Encounter Summary ---
:1965 Author Organization [facility] Address [address] [place] [address] Care Team Providers Name Role Phone Elsewhere, Pcp Primary Care Provider Unavailable Reason for Visit Reason Comments need call from care team Encounter Details Date Type Department Care Team Description 03/16/2022 Clinical Department of gabby Parry call ayde call Communication Oncology in [place] Call care team [place] [address] [address] [facility] [address] [place] [phone] Social History Tobacco Use Types Packs/Day Years [...] How often do you attend jew or roman catholic services? Never 01/15/2021 Do you belong [...] place to sleep or slept in a chcf (including now)? Education Answer Date Recorded What is the highest level of school you have completed or 12 th grade 01/15/2021 the highest degree you have received? 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 - 03/16/2022 4:45 PM CDT ASSESSMENT I called Mr. Campbell. He was seen in clinic by Dr. Zarco on 03/08, and was still having symptoms related to bronchiolitis seen on imaging. They agreed upon delaying treatment until recovered. Unfortunately, his symptoms worsened by March 14, and he returned to his local ED and was started on levofloxacin 750 mg once daily for 7 days. See note by Dr. Ferreira's noted dated 03/14. Today is the besthe has felt, though not fully recovered. He denies any fevers today. He did have a fever on Monday above 100.0. His shortness of breath is improved, but does still get short of breath with stairs. He does sound hoarse and fatigued over the phone. He reports that he was taking a nap when I called. He is currently scheduled for chemotherapy tomorrow, but unsure if he feel recovered enough to receive chemotherapy. He is concerned about receiving treatment and worsening his infection. However, he is concerned about a deviation from the trial and no longer being eligible for enrollment. PLAN Per discussion with Dr. Zarco, he can postpone his appointment by two weeks. He was last seen on 03/08. As long as he gets treatment before 03/22, this will not effect his eligibility for the trial.Will plan to cancel 03/18 appointments, and keep 03/21 as scheduled. Mickey Luz NP, whom was going to see the patient, notified as well. Encouraged Mr. Campbell to call back with any new or worsening symptoms. Disposition/Recommendation: self-care appropriate at this time, patient encouraged to call back withquestions. Information/Education: patient/caller able to teach back. Caller agreeable to plan of care: yes. The following references were used: nursing clinical judgement. Telephone Encounter - Blade Aguilar Efe - 03/16/2022 10:13 AM CDT Do we have a valid auth to speak with caller? patient Reason for call: Patient called and would like a call from a provider on the care team to discuss his chemo and appt plans. Please call pt when able. Call back number is [phone]. Thank you, Blade Rst Onc Rogo Med AA Pod 1 documented in this encounter Plan of Treatment Upcoming Encounters Date Type Specialty Care Team Description 06/22/2022 Lab Laboratory Medicine Maria Del Rosario Gomez AP RN, C.N.P., M.S. [address] [place] [phone] (Mj godoy) 06/22/2022 Infusion Oncology Maria Del Rosario Gomez APRN, C.N .P., M.S. [address] [place] [phone] (Mj godoy) 06/29/2022 Lab Laboratory Medicine Maria Del Rosario Gomez AP RN, C.N.P., M.S. [address] [place] [phone] (Mj godoy) 06/29/2022 Infusion Oncology Maria Del Rosario Gomez APRN, C.N .P., M.S. [address] [place] [phone] (Mj godoy) documented as of this encounter Visit Diagnoses Not on filedocumented in this encounter Additional Health Concerns Assessment Noted Time PHQ-9 Depression Total Score: 2 10/01/2021 10:34 AM CS T documented as of this encounter Care Teams Asbestos Cement Sheet Supervisor Relationship Specialty Start Date End Date Elsewhere, Pcp PCP - General Family Medicine 08/12/20 documented as of this encounter
--- OUTSIDE RECORDS SUMMARY | 2022-06-18 16:02 | XMS_ITS | Encounter Summary ---
:1965 Author Organization [facility] Address [address] [place] [id number] Care Team Providers Name Role Phone Elsewhere, Pcp Primary Care Provider Unavailable Reason for Visit Episode Based Medications (Routine) - Closed Specialty Diagnoses / Procedures Referred By Contact Refer red To Contact Diagnoses Malignant Neoplasm Of Pancreas (HCC) Secondary Malignant Neoplasm Liver (HCC) Medication Therapy Social Director Not Anticoagulant Jesse Perkins Rst Onc Rogo Procedures LA ONDANSETRON HCL INJECTION LA LEUCOVORIN CALCIUM INJECTION LA INJ IRINOTECAN LIPOSOME 1 MG LA FLUOROURACIL INJECTION P.A.-C., M.S. [address] [facility] [address] [place] [phone] Referral ID Status Reason Start Date Expiration Date Visits Requ ested Visits Authorized [id number] Closed 08/27/2021 08/27/2022 36 36 Encounter Details Date Type Department Care Team Description 03/08/2022 Office Visit Department of Carolee, Malignant Neop lasm Of Pancreas (HCC) (Primary Dx); Oncology in Vladislav Pereira M.D. Secondary Malignant Neoplasm Liver (HCC) ; [place], [place] [address] [facility] Medication Therapy Social Director Not Anticoa gulant [address] [place] [phone] Social History Tobacco Use Types Packs/Day Years [...] er 01/15/2021 How often do you attend synagogue or roman catholic services? 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 - 03/08/2022 1:20 PM CDT SUBJECTIVE PRIMARY CARE PHYSICIAN ELSEWHERE, PCP Patient Care Team: Adrian Mills M.D. as External Primary Care Physician (Family Medicine) LOCAL ONCOLOGIST No care rn team leader to display PRIMARY [place] ONCOLOGIST Deborah Murray M.B.B.Manuel. Maria Del Rosario Gomez APRN, C.N.P., M.S. CHIEF COMPLAINT / REASON FOR VISIT Adam Campbell is a 56 y.o. male who presents for evaluation of metastatic pancreatic cancer. Patient is on trial with liposomal irinotecan 5 fluorouracil and onvansertib. He stated the last 2 weeks where the ???hardest 2 weeks of my life?? . He felt quite febrile and had a temperature as high as102??. No source was found in 2 emergency room visits. The patient says he is just now starting to feel well. HISTORY OF PRESENT ILLNESS Oncology History Oncology [...] (01/25/2021 - 03/02/2021) Site: Pancreas Technique: 3D LOCAL FLATBED DRIVER Goal: Curative Planned Treatment Start Date: 01/25/2021 01/25/2021 - 03/01/2021 Chemotherapy Gemcitabine ( with Radiation ) Start Date: 01/25/2021 08/13/2021 Genetic Testing and Tumor Genotyping [facility] pancreas panel negative 08/18/2021 - Research Study Participant Research Study: A Study to Analyze Onvansertib Treatment in Patients with Metastatic Pancreatic Ductal Adenocarcinoma ([id number]) Treatment Protocol: [facility] CRDF-001 ( Onvansertib (Days 1-5) / Fluorouracil / Leucovorin / Nanoliposomal Irinotecan ) 08/27/2021 - 11/11/2021 Research Study Participant Research Study: A Study to Analyze Onvansertib Treatment in Patients with Metastatic Pancreatic Ductal Adenocarcinoma ([id number]) Treatment Protocol: [facility] CRDF-001 ( Onvansertib (Days 1-10) / Fluorouracil / Leucovorin / Nanoliposomal Irinotecan ) General: Associated symptoms: fatigue and fever Associated symptoms: no chest pain, no nausea, no numbness and no vomiting The following portions of the patient's history were reviewed and updated as appropriate: allergies,current medications, medical history and problem list. No data recorded REVIEW OF SYSTEMS Constitutional: Positive for fatigue and fever. - Negative for loss of appetite and weight loss of more than 10 pounds. ENT: Positive for sinus congestion. - Poor taste, tongue felt thick Cardiovascular: - Negative for chest pain, pressure or tightness and swelling in the legs or feet. Gastrointestinal: - Negative for diarrhea, nausea and vomiting. Hematologic: - Negative for abnormal lumps or bumps. Neurological: - Negative for numbness or shooting pain in hands, arms, legs, or feet. The following systems were negative: Respiratory, Genitourinary, Musculoskeletal, Psychiatric OBJECTIVE BP 106/68 (BP Location: Left arm, Patient Position: Sitting, Cuff Size: Regular) Pulse 89 Temp 37.5 ??C (Tympanic) Resp 17 Ht 177 cm Wt 73 kg SpO2 96% BMI 23.30 kg/m?? PHYSICAL EXAM ECOG performance score: 1 - symptomatic but completely ambulatory Physical Exam LABORATORY DATA Lab data reviewed. RADIOLOGICAL DATA Radiology data reviewed. ASSESSMENT / PLAN #1 Secondary Malignant Neoplasm Liver (HCC) #2 Medication Therapy Social Director Not Anticoagulant #3 Malignant Neoplasm Of Pancreas (HCC) The patient has bronchiolitis on his scan and a mild temperature of 37.5??. Given that he is just now getting over what is probably a viral illness (negative COVID test), think we should postpone therapy a week to let the patient further recover and not worsen any ongoing infection. 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 PATIENT EDUCATION Ready to learn, no apparent learning barriers were identified; learning preferences include listening. Explained diagnosis and treatment plan; patient expressed understanding of the content. ADMINISTRATIVE BILLING I personally spent 35 minutes in care of the patient today. Time includes both non face to face and face to face patient care. documented in this encounter Plan of Treatment Upcoming Encounters Date Type Specialty Care Team Description 06/22/2022 Lab Laboratory Medicine Maria Del Rosario Gomez AP RN, C.N.P., M.S. [address] [place] [phone] (Wo rk) 06/22/2022 Infusion Oncology [place] APRN, C.N .P., M.S. [address] [place] [address] [phone] (Wo rk) 06/29/2022 Lab Laboratory Medicine Maria Del Rosario Gomez AP RN, C.N.P., M.S. [address] [place] [address] [phone] (Wo rk) 06/29/2022 Infusion Oncology Maria Del Rosario Gomez APRN, C.N .P., M.S. [address] [place] [address] [phone] (Wo rk) documented as of this encounter Procedures Procedure Name Priority Date/Time Associated Comments Diagnosis CARBOHYDRATE AG 19-9 Routine 03/08/2022 8:16 AM Secondary Rachel gnant Results for this (CA 19-9), S CDT Neoplasm Liver procedure are in (HCC) the results Medication Therapy section. Social Director Not Anticoagulant Malignant Neoplasm Of Pancreas (HCC) documented in this encounter Results Carbohydrate Antigen 19-9 (CA 19-9) (03/08/2022 8:16 AM CDT) P athologist Signature Carbohydrate Ag 9 <35 U/mL 03/08/2022 [facility] 19-9, S 9:10 PM CDT Comment: ----ADDITIONAL INFORMATION---- The testing method is an immunoenzymatic assay manufactured by [employer] and performed on the [employer] DxI 800. ? Values obtained with different assay met hods or kits may be different and cannot be used inte rchangeably. ? Test results cannot be interpreted as ab solute evidence for the presence or absence of malignant disease. Specimen Anatomical Collection Method Collection Time Receive d Time (Source) Location / / Volume Laterality Blood (Blood, 03/08/2022 8:16 AM 03/08/20 22 8:20 Venous) CDT PM CDT Vladislav Zarco M.D. LAB BLOOD ADD-ON Performing Organization Address City/State/ZIP Code Phon e Number [facility] [address] [place] [id number] SUPPORT [facility] [place] [address] Laboratory Medicine and Pathology [address] [place] documented in this encounter Visit Diagnoses Diagnosis Malignant Neoplasm Of Pancreas (HCC) - P rimary Secondary Malignant Neoplasm Liver (HCC) Medication Therapy Social Director Not Anticoa gulant documented in this encounter Additional Health Concerns Assessment Noted Time PHQ-9 Depression Total Score: 2 10/01/2021 10:34 AM CS T documented as of this encounter Care Teams Lead Painter Relationship Specialty Start Date End Date Elsewhere, Pcp PCP - General Family Medicine 08/12/20 documented as of this encounter
--- OUTSIDE RECORDS SUMMARY | 2022-06-18 16:02 | XMS_ITS | Encounter Summary ---
:1965 Author Organization [facility] Address [address] [place] [address] Care Team Providers Name Role Phone Elsewhere, Pcp Primary Care Provider Unavailable Reason for Visit Reason Comments LTD form Encounter Details Date Type Department Care Team Description 02/16/2022 Clinical Communication Department of MALI Parry form Oncology in Cipriano Peterson [place], [place] [address] [facility] [address] [place] [phone] Social History Tobacco Use Types Packs/Day Years [...] er 01/15/2021 How often do you attend zoroastrian or zoroastrian services? 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 - 02/21/2022 11:09 AM CDT Completed - need provider signature. documented in this encounter Plan of Treatment Upcoming Encounters Date Type Specialty Care Team Description 06/22/2022 Lab Laboratory Medicine Maria Del Rosario Gomez AP RN, C.N.P., M.S. [address] [place] [address] [phone] (Wo rk) 06/22/2022 Infusion Oncology Maria Del Rosario Gomez APRN, C.N .P., M.S. [address] [place] [address] [phone] (Wo rk) 06/29/2022 Lab Laboratory Medicine Maria Del Rosario Gomez AP RN, C.N.P., M.S. [address] [place] [address] [phone] (Wo rk) 06/29/2022 Infusion Oncology Maria Del Rosario Gomez APRN, C.N .P., M.S. [address] [place] [address] [phone] (Wo rk) documented as of this encounter Visit Diagnoses Not on filedocumented in this encounter Additional Health Concerns Assessment Noted Time PHQ-9 Depression Total Score: 2 10/01/2021 10:34 AM CS T documented as of this encounter Care Teams Heel Sewer Relationship Specialty Start Date End Date Elsewhere, Pcp PCP - General Family Medicine 08/12/20 documented as of this encounter
--- OUTSIDE RECORDS SUMMARY | 2022-06-18 16:02 | XMS_ITS | Encounter Summary ---
:1965 Author Organization [facility] Address [address] [place] [address] Care Team Providers Name Role Phone Elsewhere, Pcp Primary Care Provider Unavailable Encounter Details Date Type Department Care Team Description 03/03/2022 Clinical Communication Visit Review in [place], [place] [address] [place] [address] Social History Tobacco Use Types [...] How often do you attend synagogue or rastafari services? Never 01/15/2021 Do you belong to [...] place to sleep or slept in a fpc (including now)? Education Answer Date Recorded What is the highest level of school you have completed or 12 th grade 01/15/2021 the highest degree you have received? 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 [address] [place] [phone] (Wo rk) 06/22/2022 Infusion Oncology Maria Del Rosario Gomez APRN, C.N .P., M.S. [address] [place] [address] [phone] (Wo rk) 06/29/2022 Lab Laboratory Medicine Maria Del Rosario Gomez AP RN, C.N.P., M.S. [address] [place] [address] [phone] (Wo rk) 06/29/2022 Infusion Oncology Maria Del Rosario Gomez APRN, C.N .P., M.S. [address] [place] [address] [phone] (Wo rk) documented as of this encounter Visit Diagnoses Not on filedocumented in this encounter Additional Health Concerns Assessment Noted Time PHQ-9 Depression Total Score: 2 10/01/2021 10:34 AM CS T documented as of this encounter Care Teams Data Warehousing Architect Relationship Specialty Start Date End Date Elsewhere, Pcp PCP - General Family Medicine 08/12/20 documented as of this encounter
--- OUTSIDE RECORDS SUMMARY | 2022-06-18 16:02 | XMS_ITS | Encounter Summary ---
:1965 Author Organization [facility] Address [address] [place] [address] Care Team Providers Name Role Phone Elsewhere, Pcp Primary Care Provider Unavailable Reason for Visit Episode Based Medications (Routine) - Closed Specialty Diagnoses / Procedures Referred By Contact Refer red To Contact Diagnoses Malignant Neoplasm Of Pancreas (HCC) Secondary Malignant Neoplasm Liver (HCC) Medication Therapy Residential Not Anticoagulant Jesse Perkins Rst Onc Rogo Procedures IA ONDANSETRON HCL INJECTION IA LEUCOVORIN CALCIUM INJECTION IA INJ IRINOTECAN LIPOSOME 1 MG IA FLUOROURACIL INJECTION P.A.-C., M.S. [address] [facility] [address] [place] [phone] Referral ID Status Reason Start Date Expiration Date Visits Requ ested Visits Authorized [id number] Closed 08/27/2021 08/27/2022 36 36 Encounter Details Date Type Department Care Team Description 02/09/2022 Infusion Department of Oncology Deborah Murray Secon dary Malignant Neoplasm Liver (HCC) (Primary Dx); in [facility] elke VillaBRiazSRiaz Medication Therapy Thread Singer Not Anticoa gulant; [address] [facility] [address] [facility] Malignant Neoplasm Of Pancreas (HCC); [place] [address] [facility] [phone] Social History Tobacco Use Types Packs/Day Years [...] How often do you attend anglican or protestant services? 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 [address] [place] [address] [phone] (Mj godoy) 06/22/2022 Infusion Oncology Maria Del Rosario Gomez APRN, C.N .P., M.S. [address] [place] [address] [phone] (Mj godoy) 06/29/2022 Lab Laboratory Medicine Maria Del Rosario Gomez AP RN, C.N.P., M.S. [address] [place] [address] [phone] (Mj godoy) 06/29/2022 Infusion Oncology Maria Del Rosario Gomez APRN, C.N .P., M.S. [address] [place] [address] [phone] (Mj godoy) documented as of this encounter Visit Diagnoses Diagnosis Secondary Malignant Neoplasm Liver (HCC) - Primary Medication Therapy Thread Singer Not Anticoa gulant Malignant Neoplasm Of Pancreas (HCC) Bacteremia documented in this encounter Administered Medications Inactive Administered Medications - up to 3 most recent administrations Medication Order MAR Action Action Date Dose Rate Site dexAMETHasone injection 8 mg Given 02/09/2022 12:12 PM CDT 8 mg (DECADRON) 8 mg, intravenous, Once, On Mon02/09/22 at 1215, For 1 dose fluorouraciL 5,000 mg in NaCl 0.9% Given 02/09/2022 2:59 PM CDT 5,000 mg 5 mL/hr 230 mL IVPB (ADRUCIL) 5,000 mg (rounded from 4,752 mg = 2,400 mg/m2 ? 1.98 m2 Order-specific BSA), intravenous, at 5 mL/hr, Administer over 46 Hours, over 46 hours, First dose on Mon02/09/22 at 1415, For 1 dose, Continuous infusion over 46 hours immediately following Leucovorin. Dose reflects TOTAL CALCULATED DOSE to be administered via continuous infusion over the specified length of treatment. irinotecan liposomaL 86 mg in D5W New Bag 02/09/2022 12:37 PM CDT 86 mg 347 mL/hr 520 mL IVPB (ONIVYDE) 86 mg (rounded from 85.14 mg = 43 mg/m2 ? 1.98 m2 Order-specific BSA), intravenous, at 347 mL/hr, Administer over 90 Minutes, Once, On Mon02/09/22 at 1215, For 1 dose, Administer immediately following the administration of oral onvansertib. Protect from light. No in-line filter. leucovorin 800 mg in NaCl 0.9% 315 New Bag 02/09/2022 2:23 PM CDT 800 mg 630 mL/hr mL IVPB 800 mg (rounded from 792 mg = 400 mg/m2 ? 1.98 m2 Order-specific BSA), intravenous, at 630 mL/hr, Administer over 30 Minutes, Once, On Mon02/09/22 at 1345, For 1 dose, Follows irinotecan liposome. ondansetron (PF) injection 8 mg (ZOFRAN) Given 02/09/2022 12:12 PM CDT 8 mg 8 mg, intravenous, Once, On Mon02/09/22 at 1215, For 1 dose Research IRB [id number] onvansertib capsule 10 Given 12:26 PM CDT 10 mg mg (PCM-075) 10 mg, oral, Once, On Mon02/09/22 at 1215, For 1 dose, This is the 5 [...] prior to liposomal irinotecan Infusion. Research IRB [id number] onvansertib capsule 20 Given 12:27 PM CDT 20 mg mg (PCM-075) 20 mg, oral, Once, On Mon02/09/22 at 1215, For 1 dose, This is the 20 [...] documented as of this encounter Care Teams Felt Washing Machine Tender Relationship Specialty Start Date End Date Elsewhere, Pcp PCP - General Family Medicine 08/12/20 documented as of this encounter
--- OUTSIDE RECORDS SUMMARY | 2022-06-18 16:02 | XMS_ITS | Encounter Summary ---
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 [address] [place] [address] [address] [place] [phone] Referral ID Status Reason Start Date Expiration Date Visits Requ ested Visits Authorized [id number] Closed 08/27/2021 08/27/2022 36 36 Encounter Details Date Type Department Care Team Description 02/22/2022 Lab Department of Laboratory Deborah Murray Sec ondary Malignant Neoplasm Liver (HCC) (Primary Dx); Medicine and Pathology, M.B.B.S. Medication Therapy Snf Not Anticoa gulant; [facility], in [address] [place] [address] Malignant Neoplasm Of Pancreas (HCC); [place], [place] Bacteremia [address] [place] [phone] [place] [phone] Social History Tobacco Use Types Packs/Day Years [...] How often do you attend congregational or pentecostalism services? Never 01/15/2021 Do you belong to [...] at Date Recorded Male 08/18/2021 2:55 PM SUB PRIOR documented as of this encounter Plan of Treatment Upcoming Encounters Date Type Specialty Care Team Description 06/22/2022 Lab Laboratory Medicine Maria Del Rosario Gomez AP RN, C.N.P., M.S. [address] [place] [phone] (Mj godoy) 06/22/2022 Infusion Oncology Maria Del Rosario Gomez APRN, C.N .P., M.S. [address] [place] [phone] (Mj godoy) 06/29/2022 Lab Laboratory Medicine Maria Del Rosario Gomez AP RN, C.N.P., M.S. [address] [place] [phone] (Mj godoy) 06/29/2022 Infusion Oncology Maria Del Rosario Gomez APRN, C.N .P., M.S. [address] [place] [phone] (Mj godoy) documented as of this encounter Procedures Procedure Name Priority Date/Time Associated Comments Diagnosis CBC WITH DIFFERENTIAL, B Routine 02/22/2022 6:50 Secondary Results for this AM CDT Malignant Neoplasm procedure are in Liver (HCC) the results Medication Therapy section. Snf Not Anticoagulant Malignant Neoplasm Of Pancreas (HCC) ALANINE AMINOTRANSFERASE Routine 02/22/2022 6:50 Secondary Results for this (ALT), S/P AM CDT Malignant Neoplasm procedure are in Liver (HCC) the results Medication Therapy section. Tour Sales Representative Not Anticoagulant Malignant Neoplasm Of Pancreas (HCC) ASPARTATE Routine 02/22/2022 6:50 Secondary Results for this AMINOTRANSFERASE (AST), AM CDT Malignant Neoplas m procedure are in S/P Liver (HCC) the results Medication Therapy section. Snf Not Anticoagulant Malignant Neoplasm Of Pancreas (HCC) PHOSPHORUS (INORGANIC), Routine 02/22/2022 6:50 Secondary R esults for this S AM CDT Malignant Neoplasm procedure are in Liver (HCC) the results Medication Therapy section. Snf Not Anticoagulant Malignant Neoplasm Of Pancreas (HCC) ALKALINE PHOSPHATASE, Routine 02/22/2022 6:50 Secondary Res ults for this S/P AM CDT Malignant Neoplasm procedure are in Liver (HCC) the results Medication Therapy section. Snf Not Anticoagulant Malignant Neoplasm Of Pancreas (HCC) MAGNESIUM, S Routine 02/22/2022 6:50 Secondary Results for this AM CDT Malignant Neoplasm procedure are in Liver (HCC) the results Medication Therapy section. Snf Not Anticoagulant Malignant Neoplasm Of Pancreas (HCC) BILIRUBIN, TOT, S/P Routine 02/22/2022 6:50 Secondary Resul ts for this AM CDT Malignant Neoplasm procedure are in Liver (HCC) the results Medication Therapy section. Tour Sales Representative Not Anticoagulant Malignant Neoplasm Of Pancreas (HCC) ALBUMIN, S/P Routine 02/22/2022 6:50 Secondary Results for this AM CDT Malignant Neoplasm procedure are in Liver (HCC) the results Medication Therapy section. Snf Not Anticoagulant Malignant Neoplasm Of Pancreas (HCC) BASIC METABOLIC PANEL, Routine 02/22/2022 6:50 Secondary Re sults for this S/P AM CDT Malignant Neoplasm procedure are in Liver (HCC) the results Medication Therapy section. Snf Not Anticoagulant Malignant Neoplasm Of Pancreas (HCC) documented in this encounter Results (ABNORMAL) ALT (Alanine Aminotransferase) (02/22/2022 6:50 AM CDT) Patholo gist Method Time Signature Alanine 95 (H) 7 - 55 02/22/2022 DTL Aminotransferase U/L 7:47 AM CDT (ALT), S Specimen Anatomical Collection Method Collection Time Receive d Time (Source) Location / / Volume Laterality Blood (Blood, 02/22/2022 6:50 AM 02/23/20 22 7:23 Venous) CDT AM CDT Deborah VillaB.S. LAB BLOOD ADD-ON Performing Organization Address City/State/[facility] Code Phon e Number [facility] - [address] [place], [place] [address] [facility] [place], [place] [phone] [place] [address] [address] [facility] (ABNORMAL) AST (Aspartate Aminotransferase) (02/22/2022 6:50 AM CDT) [facility] gist Method Time Signature Aspartate 69 (H) 8 - 48 02/22/2022 METH Aminotransferase U/L 7:15 AM CDT (AST), P Specimen Anatomical Collection Method Collection Time Receive d Time (Source) Location / / Volume Laterality Blood (Blood, 02/22/2022 6:50 AM 02/23/20 22 6:55 Venous) CDT AM CDT Deborah VillaB.S. LAB BLOOD ADD-ON Performing Organization Address City/[facility] Code Phon e Number [facility] - [address] [place], [place] [address] 05 [place], [place] [phone] [place] [address] [address] [facility] Bilirubin, Total (02/22/2022 6:50 AM CDT) P athologist Signature Bilirubin, 0.6 <=1.2 mg/dL 02/22/2022 METH Total, P 7:15 AM CDT Specimen Anatomical Collection Method Collection Time Receive d Time (Source) Location / / Volume Laterality Blood (Blood, 02/22/2022 6:50 AM 02/23/20 22 6:55 Venous) CDT AM CDT Deborah VillaB.S. LAB BLOOD ADD-ON Performing Organization Address City/State/[facility] Code Phon e Number [facility] - [address] [place], [place] [address] [facility] [place] [address] [facility] [address] [facility] (ABNORMAL) Alkaline Phosphatase (02/22/2022 6:50 AM CDT) P athologist Signature Alkaline 438 (H) 40 - 129 02/22/2022 DTL Phosphatase, S U/L 7:47 AM CDT Specimen Anatomical Collection Method Collection Time Receive d Time (Source) Location / / Volume Laterality Blood (Blood, 02/22/2022 6:50 AM 02/23/20 22 7:23 Venous) CDT AM CDT Deborah VillaB.S. LAB BLOOD ADD-ON Performing Organization Address City/[facility]/ZIP Code Phon e Number [facility] - [address] [place], [place] [address] [place] [address] [facility] 200 [facility] Magnesium (02/22/2022 6:50 AM CDT) athologist Signature Magnesium, S 1.9 1.7 - 2.3 02/22/2022 DTL mg/dL 7:47 AM CDT Specimen Anatomical Collection Method Collection Time Receive d Time (Source) Location / / Volume Laterality Blood (Blood, 02/22/2022 6:50 AM 02/23/20 22 7:23 Venous) CDT AM CDT Deborah VillaB.S. LAB BLOOD ADD-ON Performing Organization Address City/State/ZIP Code Phon e Number [facility] - [address] [place], [place] [address] [place] [address] Phosphorus Inorganic (02/22/2022 6:50 AM CDT) athologist Signature Phosphorus 3.1 2.5 - 4.5 02/22/2022 DTL (Inorganic), S mg/dL 7:47 AM CDT Specimen Anatomical Collection Method Collection Time Receive d Time (Source) Location / / Volume Laterality Blood (Blood, 02/22/2022 6:50 AM 02/23/20 22 7:23 Venous) CDT AM CDT Deborah VillaB.S. LAB BLOOD ADD-ON Performing Organization Address City/State/[facility] Phon e Number [facility] - [address] Albumin (02/22/2022 6:50 AM CDT) athologist Signature Albumin, S 3.7 3.5 - 5.0 02/22/2022 DTL g/dL 7:47 AM CDT Specimen Anatomical Collection Method Collection Time Receive d Time (Source) Location / / Volume Laterality Blood (Blood, 02/22/2022 6:50 AM 02/23/20 7:23 Venous) CDT AM CDT Deborah RussoS. LAB BLOOD ADD-ON Performing Organization Address [facility] Phon e Number [facility] - 200 [place], [place] [address] [place] [address] (ABNORMAL) Basic Metabolic Panel (02/22/2022 6:50 AM CDT) athologist Signature Potassium, P 3.4 (L) 3.6 - 5.2 02/22/2022 METH mmol/L 7:15 AM CDT Sodium, P 138 135 - 145 02/22/2022 METH mmol/L 7:15 AM CDT Chloride, P 102 98 - 107 02/22/2022 METH mmol/L 7:15 AM CDT Bicarbonate, P 25 22 - 29 02/22/2022 METH mmol/L 7:15 AM CDT Anion Gap, P 11 7 - 15 02/22/2022 METH 7:15 AM CDT BUN (Blood Urea 10 8 - 24 02/22/2022 METH Nitrogen), P mg/dL 7:15 AM CDT Creatinine 0.97 0.74 - 02/22/2022 METH 1.35 mg/dL 7:15 AM CDT eGFR-Black/Afri >90 >=60 02/22/2022 METH can Prydeinig mL/min/BSA 7:15 AM CDT Comment: ----ADDITIONAL INFORMATION---- Estimated GFR calculated using the 2009 CKD_EPI creatinine equation. eGFR Non-Black/ 86 >=60 mL/min/BSA 7:15 AM CDT METH Comment: ----ADDITIONAL INFORMATION---- Estimated GFR calculated using the 2009 CKD_EPI creatinine equation. Calcium, Total, P 8.9 8.6 - 10.0 mg/dL 02/22/2022 7:15 AM CDT METH Glucose, P 127 70 - 140 mg/dL 02/22/2022 7:15 AM CDT M ETH Specimen Anatomical Collection Method Collection Time Receive d Time (Source) Location / / Volume Laterality Blood (Blood, 02/22/2022 6:50 AM 02/23/20 6:55 Venous) CDT AM CDT Deborah VillaBRiazSRiaz LAB BLOOD ADD-ON Performing Organization Address City/State/ZIP Code Phon e Number [facility] - 200 [place], [place] [address] [facility] [place] [address] [facility] [address] [facility] (ABNORMAL) CBC with Differential, Blood (02/22/2022 6:50 AM CDT) [facility] gist Method Time Signature Hemoglobin 10.4 (L) 13.2 - 02/22/2022 DTL 16.6 g/dL 7:11 AM CDT Hematocrit 31.8 (L) 38.3 - 02/22/2022 DTL 48.6 % 7:11 AM CDT Erythrocytes 3.72 (L) 4.35 - 02/22/2022 DTL 5.65 7:11 AM CDT x10(12)/L MCV 85.5 78.2 - 02/22/2022 DTL 97.9 fL 7:11 AM CDT RBC Distrib Width 16.4 (H) 11.8 - 02/22/2022 DTL 14.5 % 7:11 AM CDT Platelet Count 162 135 - 317 02/22/2022 DTL x10(9)/L 7:11 AM CDT Leukocytes 3.8 3.4 - 9.6 02/22/2022 DTL x10(9)/L 7:11 AM CDT Neutrophils 2.83 1.56 - 02/22/2022 DTL 6.45 7:11 AM CDT x10(9)/L Lymphocytes 0.29 (L) 0.95 - 02/22/2022 DTL 3.07 7:11 AM CDT x10(9)/L Monocytes 0.54 0.26 - 02/22/2022 DTL 0.81 7:11 AM CDT x10(9)/L Eosinophils 0.16 0.03 - 02/22/2022 DTL 0.48 7:11 AM CDT x10(9)/L Basophils <0.03 0.01 - 02/22/2022 DTL 0.08 7:11 AM CDT x10(9)/L Specimen Anatomical Collection Method Collection Time Receive d Time (Source) Location / / Volume Laterality Blood (Blood, 02/22/2022 6:50 AM 02/23/20 7:05 Venous) CDT AM CDT Deborah Valera LAB BLOOD ADD-ON Performing Organization Address City/State/ZIP Code Phon e Number [facility] - [address] [place], [place] [address] [facility] [place] [address] [facility] [address] documented in this encounter Visit Diagnoses Diagnosis Secondary Malignant Neoplasm Liver (HCC) - Primary Medication Therapy Snf Not Anticoa gulant Malignant Neoplasm Of Pancreas (HCC) Bacteremia documented in this encounter Administered Medications Inactive Administered Medications - up to 3 most recent administrations Medication Order MAR Action Action Date Dose Rate Site heparin flush 500 Units Given 02/22/2022 6:37 AM CDT 500 Units 500 Units, intra-catheter, As needed, line care, Starting on Mon02/22/22 at 0635, When no infusion to maintain patency: For IVAD accessed, not in use, and/or prior to hospital discharge, flush every 7 days after 0.9% preservative-free NaCL flush. For IVAD NOT accessed or used, flush every 4 weeks after 0.9% preservative-free NaCL flush. sodium chloride 0.9 % injection 10 mL Given 02/22/2022 6:36 AM CDT 10 mL 10 mL, intra-catheter, As needed, line care, Starting on Mon02/22/22 at 0635, When IVAD Accessed and in Use: Flush prior to and following infusion, between multiple consecutive infusions, and prior to blood sampling. sodium chloride 0.9 % injection 20 mL Given 02/22/2022 6:36 AM CDT 20 mL 20 mL, intra-catheter, As needed, line care, Starting on Mon02/22/22 at 0635, When IVAD Accessed and in Use: Flush post blood transfusion or post blood sampling. documented in this encounter Additional Health Concerns Assessment Noted Time PHQ-9 Depression Total Score: 2 10/01/2021 10:34 AM CS T documented as of this encounter Care Teams Cardiovascular Specialist Relationship Specialty Start Date End Date Elsewhere, Pcp PCP - General Family Medicine 08/12/20 documented as of this encounter
--- OUTSIDE RECORDS SUMMARY | 2022-06-18 16:02 | XMS_ITS | Encounter Summary ---
:1965 Author Organization [facility] Address [address] [place] [address] Care Team Providers Name Role Phone Elsewhere, Pcp Primary Care Provider Unavailable Encounter Details Date Type Department Care Team Description 02/28/2022 Orders Only Department of Oncology in [facility] Coreen Remy [place], [place] [address] [place] [phone] Social History Tobacco Use Types Packs/Day Years [...] er 01/15/2021 How often do you attend scientologist or bahai services? Never 01/15/2021 Do you belong to any clubs or organizations such as scientologist N o 01/15/2021 groups, unions, fraternal or [...] at Date Recorded Male 08/18/2021 2:55 PM SPA HOST documented as of this encounter Plan of Treatment Upcoming Encounters Date Type Specialty Care Team Description 06/22/2022 Lab Laboratory Medicine Maria Del Rosario Gomez AP RN, C.N.P., M.S. [address] [place] [phone] (Mj godoy) 06/22/2022 Infusion Oncology Maria Del Rosario Gomez APRN, C.N .P., M.S. [address] [place] [phone] (Mj godoy) 06/29/2022 Lab Laboratory Medicine Maria Del Rosario Gomez AP RN, C.N.P., M.S. [address] [place] [phone] (Mj godoy) 06/29/2022 Infusion Oncology Maria Del Rosario Gomez APRN, C.N .P., M.S. [address] [place] [phone] (Mj godoy) documented as of this encounter Visit Diagnoses Not on filedocumented in this encounter Additional Health Concerns Assessment Noted Time PHQ-9 Depression Total Score: 2 10/01/2021 10:34 AM CS T documented as of this encounter Care Teams Babysitter Relationship Specialty Start Date End Date Elsewhere, Pcp PCP - General Family Medicine 08/12/20 documented as of this encounter
--- OUTSIDE RECORDS SUMMARY | 2022-06-18 16:02 | XMS_ITS | Encounter Summary ---
:1965 Author Organization [facility] Address [address] [place] [address] Care Team Providers Name Role Phone Elsewhere, Pcp Primary Care Provider Unavailable Encounter Details Date Type Department Care Team Description 02/09/2022 Lab Department of Laboratory Deborah Murray Sec ondary Malignant Neoplasm Liver (HCC) (Primary Dx); Medicine and Pathology, M.B.B.S. Medication Therapy Production Internship Not Anticoa gulant; [facility], in [address] [place] [address] Malignant Neoplasm Of Pancreas (HCC); [place], [place] Bacteremia [address] [place] [phone] [place] [phone] Social History Tobacco Use Types Packs/Day Years [...] er 01/15/2021 How often do you attend episcopalian or scientologist services? 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 [address] [place] [address] [phone] (Wo rk) 06/22/2022 Infusion Oncology Maria Del Rosario Gomez APRN, C.N .P., M.S. [address] [place] [address] [phone] (Mj rk) 06/29/2022 Lab Laboratory Medicine Maria Del Rosario Gomez AP RN, C.N.P., M.S. [address] [place] [address] [phone] (Wo rk) 06/29/2022 Infusion Oncology Maria Del Rosario Gomez APRN, C.N .P., M.S. [address] [place] [address] [phone] (Wo rk) documented as of this encounter Procedures Procedure Name Priority Date/Time Associated Comments Diagnosis [facility] [place] RESEARCH ORDER, B Routine 02/09/2022 8:31 Secondary Re sults for this AM CDT Malignant Neoplasm procedure are in Liver (HCC) the results Malignant Neoplasm section. Of Pancreas (HCC) CBC WITH DIFFERENTIAL, B Routine 02/09/2022 8:30 Secondary Results for this AM CDT Malignant Neoplasm procedure are in Liver (HCC) the results Medication Therapy section. Halfway Not Anticoagulant Malignant Neoplasm Of Pancreas (HCC) ALANINE AMINOTRANSFERASE Routine 02/09/2022 8:30 Secondary Results for this (ALT), S/P AM CDT Malignant Neoplasm procedure are in Liver (HCC) the results Medication Therapy section. Halfway Not Anticoagulant Malignant Neoplasm Of Pancreas (HCC) ASPARTATE Routine 02/09/2022 8:30 Secondary Results for this AMINOTRANSFERASE (AST), AM CDT Malignant Neoplas m procedure are in S/P Liver (HCC) the results Medication Therapy section. Production Internship Not Anticoagulant Malignant Neoplasm Of Pancreas (HCC) PHOSPHORUS (INORGANIC), Routine 02/09/2022 8:30 Secondary R esults for this S AM CDT Malignant Neoplasm procedure are in Liver (HCC) the results Medication Therapy section. Production Internship Not Anticoagulant Malignant Neoplasm Of Pancreas (HCC) ALKALINE PHOSPHATASE, Routine 02/09/2022 8:30 Secondary Res ults for this S/P AM CDT Malignant Neoplasm procedure are in Liver (HCC) the results Medication Therapy section. Halfway Not Anticoagulant Malignant Neoplasm Of Pancreas (HCC) MAGNESIUM, S Routine 02/09/2022 8:30 Secondary Results for this AM CDT Malignant Neoplasm procedure are in Liver (HCC) the results Medication Therapy section. Halfway Not Anticoagulant Malignant Neoplasm Of Pancreas (HCC) BILIRUBIN, TOT, S/P Routine 02/09/2022 8:30 Secondary Resul ts for this AM CDT Malignant Neoplasm procedure are in Liver (HCC) the results Medication Therapy section. Halfway Not Anticoagulant Malignant Neoplasm Of Pancreas (HCC) ALBUMIN, S/P Routine 02/09/2022 8:30 Secondary Results for this AM CDT Malignant Neoplasm procedure are in Liver (HCC) the results Medication Therapy section. Production Internship Not Anticoagulant Malignant Neoplasm Of Pancreas (HCC) BASIC METABOLIC PANEL, Routine 02/09/2022 8:30 Secondary Re sults for this S/P AM CDT Malignant Neoplasm procedure are in Liver (HCC) the results Medication Therapy section. Production Internship Not Anticoagulant Malignant Neoplasm Of Pancreas (HCC) documented in this encounter Results Miscellaneous Research, B (02/09/2022 8:31 AM CDT) athologist Signature Number of 3 02/09/2022 [facility] Specimens 8:31 AM CDT Specimen Anatomical Collection Method Collection Time Receive d Time (Source) Location / / Volume Laterality Varies (Blood, 02/09/2022 8:31 AM 022 8:31 Venous) CDT AM CDT Deborah VillaBRiazS. LAB RESEARCH NO RESULT VERENICE MCFADDEN Performing Organization Address City/State/ZIP Code Phon e Number [facility] - [address] [place], [place] [address] [place] [address] [facility] [address] ALT (Alanine Aminotransferase) (02/09/2022 8:30 AM CDT) [facility] Method Time Signature Alanine 29 7 - 55 02/09/2022 [facility] Aminotransferase U/L 9:22 AM CDT (ALT), S Specimen Anatomical Collection Method Collection Time Receive d Time (Source) Location / / Volume Laterality Blood (Blood, 02/09/2022 8:30 AM 02/10/20 22 9:04 Venous) CDT AM CDT Deborah VillaB.S. LAB BLOOD ADD-ON Performing Organization Address City/[facility]/ZIP Code Phon e Number [facility] - [address] [place], [place] [address] [employer] [facility] [place] [address] [facility] [address] [facility] AST (Aspartate Aminotransferase) (02/09/2022 8:30 AM CDT) [facility] Method Time Signature Aspartate 39 8 - 48 02/09/2022 [facility] Aminotransferase U/L 9:31 AM CDT (AST), P Specimen Anatomical Collection Method Collection Time Receive d Time (Source) Location / / Volume Laterality Blood (Blood, 02/09/2022 8:30 AM 02/10/20 22 8:47 Venous) CDT AM CDT Deborah VillaB.S. LAB BLOOD ADD-ON Performing Organization Address City/State/ZIP Code Phon e Number [facility] - [address] [place], [place] [address] [employer] [facility] [facility] [place] [address] [facility] 200 [facility] Bilirubin, Total (02/09/2022 8:30 AM CDT) P athologist Signature Bilirubin, 0.6 <=1.2 mg/dL 02/09/2022 [facility] Total, P 9:31 AM CDT Specimen Anatomical Collection Method Collection Time Receive d Time (Source) Location / / Volume Laterality Blood (Blood, 02/09/2022 8:30 AM 02/10/20 22 8:47 Venous) CDT AM CDT Deborah VillaB.S. LAB BLOOD ADD-ON Performing Organization Address City/State/ZIP Code Phon e Number [facility] - 200 [place], [place] [address] [employer] [facility] [facility] [place] [address] [facility] 200 [facility] (ABNORMAL) Alkaline Phosphatase (02/09/2022 8:30 AM CDT) athologist Signature Alkaline 156 (H) 40 - 129 02/09/2022 [facility] Phosphatase, S U/L 9:22 AM CDT Specimen Anatomical Collection Method Collection Time Receive d Time (Source) Location / / Volume Laterality Blood (Blood, 02/09/2022 8:30 AM 02/10/20 9:04 Venous) CDT AM CDT Deborah Neal.B.S. LAB BLOOD ADD-ON Performing Organization Address City/State/ZIP Code Phon e Number [facility] - 200 [place], [place] [address] [place], [place] [id number] [place] [address] Magnesium (02/09/2022 8:30 AM CDT) athologist Signature Magnesium, S 2.0 1.7 - 2.3 02/09/2022 [facility] mg/dL 9:22 AM CDT Specimen Anatomical Collection Method Collection Time Receive d Time (Source) Location / / Volume Laterality Blood (Blood, 02/09/2022 8:30 AM 02/10/20 22 9:04 Venous) CDT AM CDT Deborah VillaB.S. LAB BLOOD ADD-ON Performing Organization Address City/State/ZIP Code Phon e Number [facility] - 200 [place], [place] [address] [place], [place] [id number] [place] [address] Phosphorus Inorganic (02/09/2022 8:30 AM CDT) athologist Signature Phosphorus 3.7 2.5 - 4.5 02/09/2022 DTL (Inorganic), S mg/dL 9:22 AM CDT Specimen Anatomical Collection Method Collection Time Receive d Time (Source) Location / / Volume Laterality Blood (Blood, 02/09/2022 8:30 AM 02/10/20 22 9:04 Venous) CDT AM CDT Deborah VillaB.S. LAB BLOOD ADD-ON Performing Organization Address City/[facility] Phon e Number [facility] - [address] Albumin (02/09/2022 8:30 AM CDT) athologist Signature Albumin, S 4.0 3.5 - 5.0 02/09/2022 DTL g/dL 9:22 AM CDT Specimen Anatomical Collection Method Collection Time Receive d Time (Source) Location / / Volume Laterality Blood (Blood, 02/09/2022 8:30 AM 02/10/20 9:04 Venous) CDT AM CDT Deborah VillaB.S. LAB BLOOD ADD-ON Performing Organization Address [facility] Phon e Number [facility] - [address] [place] [address] Basic Metabolic Panel (02/09/2022 8:30 AM CDT) athologist Signature Potassium, P 3.8 3.6 - 5.2 02/09/2022 [facility] mmol/L 9:31 AM CDT Sodium, P 141 135 - 145 02/09/2022 [facility] mmol/L 9:31 AM CDT Chloride, P 106 98 - 107 02/09/2022 [facility] mmol/L 9:31 AM CDT Bicarbonate, P 22 22 - 29 02/09/2022 [facility] mmol/L 9:31 AM CDT Anion Gap, P 13 7 - 15 02/09/2022 [facility] 9:31 AM CDT BUN (Blood Urea 14 8 - 24 02/09/2022 [facility] Nitrogen), P mg/dL 9:31 AM CDT Creatinine 0.93 0.74 - 02/09/2022 [facility] 1.35 mg/dL 9:31 AM CDT eGFR-Black/Afric >90 >=60 02/09/2022 [facility] an Citizen Of [place] mL/min/BSA 9:31 AM CDT Comment: ----ADDITIONAL INFORMATION---- Estimated GFR calculated using the 2009 CKD_EPI creatinine equation. eGFR Non-Black/ >90 >=60 mL/min/BSA 02/09/2022 9:31 AM CDT [facility] Comment: ----ADDITIONAL INFORMATION---- Estimated GFR calculated using the 2009 CKD_EPI creatinine equation. Calcium, Total, P 8.9 8.6 - 10.0 mg/dL 02/09/2022 9:31 AM CDT [facility] Glucose, P 97 70 - 140 mg/dL 02/09/2022 9:31 AM CDT M ETH Specimen Anatomical Collection Method Collection Time Receive d Time (Source) Location / / Volume Laterality Blood (Blood, 02/09/2022 8:30 AM 02/10/20 8:47 Venous) CDT AM CDT Deborah VillaBRiazSRiaz LAB BLOOD ADD-ON Performing Organization Address City/State/ZIP Code Phon e Number [facility] - [address] [place] [phone] [employer] [facility] [place] [address] [facility] 200 [facility] (ABNORMAL) CBC with Differential, Blood (02/09/2022 8:30 AM CDT) [facility] gist Method Time Signature Hemoglobin 10.8 (L) 13.2 - 02/09/2022 DTL 16.6 g/dL 9:14 AM CDT Hematocrit 33.4 (L) 38.3 - 02/09/2022 DTL 48.6 % 9:14 AM CDT Erythrocytes 3.80 (L) 4.35 - 02/09/2022 DTL 5.65 9:14 AM CDT x10(12)/L MCV 87.9 78.2 - 02/09/2022 DTL 97.9 fL 9:14 AM CDT RBC Distrib Width 17.0 (H) 11.8 - 02/09/2022 DTL 14.5 % 9:14 AM CDT Platelet Count 136 135 - 317 02/09/2022 DTL x10(9)/L 9:14 AM CDT Leukocytes 4.2 3.4 - 9.6 02/09/2022 DTL x10(9)/L 9:14 AM CDT Neutrophils 3.20 1.56 - 02/09/2022 DTL 6.45 9:14 AM CDT x10(9)/L Lymphocytes 0.36 (L) 0.95 - 02/09/2022 DTL 3.07 9:14 AM CDT x10(9)/L Monocytes 0.55 0.26 - 02/09/2022 DTL 0.81 9:14 AM CDT x10(9)/L Eosinophils 0.09 0.03 - 02/09/2022 DTL 0.48 9:14 AM CDT x10(9)/L Basophils <0.03 0.01 - 02/09/2022 DTL 0.08 9:14 AM CDT x10(9)/L Specimen Anatomical Collection Method Collection Time Receive d Time (Source) Location / / Volume Laterality Blood (Blood, 02/09/2022 8:30 AM 02/10/20 8:50 Venous) CDT AM CDT Deborah VillaBRiazSRiaz LAB BLOOD ADD-ON Performing Organization Address City/State/ZIP Code Phon e Number [facility] - [address] [place], [place] [address] [employer] [facility] [place] [address] [facility] [address] documented in this encounter Visit Diagnoses Diagnosis Secondary Malignant Neoplasm Liver (HCC) - Primary Medication Therapy Halfway Not Anticoa gulant Malignant Neoplasm Of Pancreas (HCC) Bacteremia documented in this encounter Administered Medications Inactive Administered Medications - up to 3 most recent administrations Medication Order MAR Action Action Date Dose Rate Site heparin flush 500 Units Given 02/09/2022 8:25 AM CDT 500 Units 500 Units, intra-catheter, As needed, line care, Starting on Mon02/09/22 at 0825, When no infusion to maintain patency: For IVAD accessed, not in use, and/or prior to hospital discharge, flush every 7 days after 0.9% preservative-free NaCL flush. For IVAD NOT accessed or used, flush every 4 weeks after 0.9% preservative-free NaCL flush. sodium chloride 0.9 % injection 10 mL Given 02/09/2022 8:25 AM CDT 10 mL 10 mL, intra-catheter, As needed, line care, Starting on Mon02/09/22 at 0825, When IVAD Accessed and in Use: Flush prior to and following infusion, between multiple consecutive infusions, and prior to blood sampling. sodium chloride 0.9 % injection 20 mL Given 02/09/2022 8:25 AM CDT 20 mL 20 mL, intra-catheter, As needed, line care, Starting on Mon02/09/22 at 0825, When IVAD Accessed and in Use: Flush post blood transfusion or post blood sampling. documented in this encounter Additional Health Concerns Assessment Noted Time PHQ-9 Depression Total Score: 2 10/01/2021 10:34 AM CS T documented as of this encounter Care Teams Siding Applicator Relationship Specialty Start Date End Date Elsewhere, Pcp PCP - General Family Medicine 08/12/20 documented as of this encounter
--- OUTSIDE RECORDS SUMMARY | 2022-06-18 16:02 | XMS_ITS | Encounter Summary ---
:1965 Author Organization [facility] Address [address] [place] [address] Care Team Providers Name Role Phone Elsewhere, Pcp Primary Care Provider Unavailable Reason for Visit Reason Comments Med Refill Encounter Details Date Type Department Care Team Description 02/05/2022 Refill Department of Palliative Care Lisa Alyssa R, Med Refill in [facility] elke Roca, M.S. 200 [address] [facility] [address] [place] [phone] [place] [address] [phone] (Wo rk) Social History Tobacco Use Types [...] er 01/15/2021 How often do you attend roman catholic or confucianism services? 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 [address] [place] [phone] (Wo rk) 06/22/2022 Infusion Oncology Maria Del Rosario Gomez APRN, C.N .P., M.S. [address] [place] [phone] (Wo rk) 06/29/2022 Lab Laboratory Medicine Maria Del Rosario Gomez AP RN, C.N.P., M.S. [address] [place] [phone] (Wo rk) 06/29/2022 Infusion Oncology Maria Del Rosario Gomez APRN, C.N .P., M.S. [address] [place] [phone] (Wo rk) documented as of this encounter Visit Diagnoses Not on filedocumented in this encounter Additional Health Concerns Assessment Noted Time PHQ-9 Depression Total Score: 2 10/01/2021 10:34 AM CS T documented as of this encounter Care Teams Sewer And Cutter Finger Buff Material Relationship Specialty Start Date End Date Elsewhere, Pcp PCP - General Family Medicine 08/12/20 documented as of this encounter
--- OUTSIDE RECORDS SUMMARY | 2022-06-18 16:02 | XMS_ITS | Encounter Summary ---
:1965 Author Organization [facility] Address [address] [place] [address] Care Team Providers Name Role Phone Elsewhere, Pcp Primary Care Provider Unavailable Reason for Referral MRI/CAT/PET Scan (Routine) - Closed Specialty Diagnoses / Procedures Referred By Contact Refer red To Contact Radiology Diagnoses Malignant Neoplasm Of Pancreas (HCC) Vladislav Zarco M.D. [facility] Procedures CT Abdomen Pelvis with IV Contrast TN CT ABD&PELVIS W CNTRST [address] [place], [place] [phone] Referral ID Status Reason Start Date Expiration Date Visits Requ ested Visits Authorized [id number] Closed 01/27/2022 01/27/2023 1 1 MRI/CAT/PET Scan (Routine) - Closed Specialty Diagnoses / Procedures Referred By Contact Refer red To Contact Radiology Diagnoses Malignant Neoplasm Of Pancreas (HCC) Vladislav Zarco M.D. [facility] Procedures CT Chest with IV Contrast TN CT THORAX W CNTRST TN 3D WO IND WORKSTATION [address] [place] [phone] Referral ID Status Reason Start Date Expiration Date Visits Requ ested Visits Authorized [id number] Closed 01/27/2022 01/27/2023 1 1 Reason for Visit MRI/CAT/PET Scan (Routine) - Closed Specialty Diagnoses / Procedures Referred By Contact Refer red To Contact Radiology Diagnoses Malignant Neoplasm Of Pancreas (HCC) Vladislav Zarco M.D. [facility] Procedures CT Abdomen Pelvis with IV Contrast TN CT ABD&PELVIS W CNTRST [address] [place] [phone] Referral ID Status Reason Start Date Expiration Date Visits Requ ested Visits Authorized [id number] Closed 01/27/2022 01/27/2023 1 1 Encounter Details Date Type Department Care Team Description 03/08/2022 Hospital Encounter Department of Jose Zarco Neoplasm Radiology, [place] Vladislav Pereira M.D. Of Pancreas (HCC) [facility] [address] [place] [address] [place] [phone] [place], [place] [phone] (Work) [phone] Social History Tobacco Use Types Packs/Day Years [...] How often do you attend anabaptism or methodist services? 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 Creon 24,000-76,000 TAKE 2 CAPSULES BY 240 capsule 3 022 04/11/2022 -120,000 unit capsule MOUTH WITH MEALS AND 1 TO 2 CAPSULES WITH SNACKS gabapentin (NEURONTIN) TAKE 2 CAPSULES(600 60 capsule 1 02/0904/19/2022 300 mg capsule MG) BY MOUTH AT BEDTIME HYDROcodone-acetaminoph daily as needed. 0 202103/21/2022 en (NORCO) 5-325 mg per tablet HYDROmorphone Take 0.5-1 tablets 60 tablet 0 02/08/202207/2022 (DILAUDID) 4 mg (2-4 mg total) by tabletIndications: mouth every 6 (six) Chronic Pain/Nonacute hours as needed for Pain pain Indication: Chronic Pain/Nonacute Pain. LORazepam (Ativan) 0.5 Take 1 tablet (0.5 10 tablet 0 01/0603/21/2022 mg tablet mg total) by mouth every 6 (six) hours as needed for anxiety. ondansetron (ZOFRAN) 8 Take 1 tablet (8 mg 30 tablet 3 12/1103/21/2022 mg tabletIndications: total) by mouth Malignant Neoplasm Of every 8 (eight) Pancreas (HCC) hours as needed for nausea or vomiting. pantoprazole (PROTONIX) Take 1 tablet (40 mg 90 tablet 0 03/25/2022 40 mg EC tablet total) by mouth every morning before breakfast. Take twice daily before breakfast and before dinner 10/24-10/31, then continue once daily before breakfast. documented as of this encounter Nursing Notes Trish Baig R.N. - 03/08/2022 9:15 AM CDT IVAD Contrast Injection Assessment Details: What type of IVAD? Power If power???What identifiers were used (2 needed or Rad approval)? ID Card, Macdonald Chain, or bracelet and 3 Bumps on [place] Shape Septum From access 03/08/22 Tip placement verifi eyes Location: [place] Date (if applicable): October 25, 2021 Blood return verified? Yes VAPP Orders (Nurse to use Saline or Heparin post scan): heparin /saline Is patient staying accessed after scan? Yes documented in this encounter Plan of Treatment Upcoming Encounters Date Type Specialty Care Team Description 06/22/2022 Lab Laboratory Medicine Maria Del Rosario Gomez AP RN, C.N.P., M.S. [address] [place] [phone] (Mj godoy) 06/22/2022 Infusion Oncology Maria Del Rosario Gomez APRN, Remy.N .P., M.S. [address] [place] [phone] (Mj godoy) 06/29/2022 Lab Laboratory Medicine Maria Del Rosario Gomez AP RN, C.N.P., M.S. [address] [place] [phone] (Mj godoy) 06/29/2022 Infusion Oncology Maria Del Rosario Gomez APRN, C.N .P., M.S. [address] [place] [phone] (Wo rk) documented as of this encounter Procedures Procedure Name Priority Date/Time Associated Comments Diagnosis CT ABDOMEN PELVIS RAD - Routine 03/08/2022 10:01 Malignant Resul ts for this WITH IV CONTRAST (most inpatients AM CDT Neoplasm Of procedu re are in and all Pancreas (HCC) the results outpatients) section. CT CHEST WITH IV RAD - Routine 03/08/2022 10:01 Malignant Result s for this CONTRAST (most inpatients AM CDT Neoplasm Of procedure a re in and all Pancreas (HCC) the results outpatients) section. documented in this encounter Results CT Abdomen Pelvis with IV Contrast (03/08/2022 10:01 AM CDT) Anatomical Region Laterality Modality Abdomen, Pelvis, Abdominal RST LOS, N/A Comp uted Tomography, Computed Abdominal ARZ LOS, Abdominal FLA LOS Dileep ography Specimen (Source) Anatomical Collection Method Collection Time Re ceived Time Location / / Volume Laterality 03/08/2022 10:23 AM CDT Impressions 03/08/2022 10:41 AM CDT Overall no significant interval change. Narrative 03/08/2022 10:41 AM CDT EXAM: ??CT ABDOMEN PELVIS WITH IV CONTRAST COMPARISON: ??01/06/2022, outside CT [place] ed 01/18/2022 FINDINGS: ??This examination was perform ed in conjunction with chest CT, which will be reported separately Known pancreas adenocarcinoma. Poorly de fined soft tissue along the pancreas uncinate and to the neck/body, Soft tissue encasing the SMA to celiac artery and to common hepatic artery, luminal narrowing with soft tissue encasing the SMV to portal vein, similar to the prior. Soft tissue is not separable from the gastric antrum. Splen ic vein occlusion with collaterals. Biliary stent in place with pneumobilia. Metallic stents extend ing from the gastric lumen to left anterior pararenal fascia with surrounding soft tissue thickening and tethered appearance of the left colon, not significantly changed. Post gonadal vein embolization with artifact, unchanged. Previously noted hepatic lesion in the segment 7, similar to the prior in s ize on image 51 series 4 and on image 55 series 5. Trace fluid in the pelvis, not significantly c hanged. No definite peritoneal nodularity. 7 mm aortocaval lymph node on image 212 series 4, not si gnificantly changed. Procedure Note Michael Perez M.D. - 03/08/2022 EXAM: CT ABDOMEN PELVIS WITH IV CONTRAST COMPARISON: 01/06/2022, outside CT dated 01/18/2022 FINDINGS: This examination was performed in conjunction with chest CT, which will be reported separately Known pancreas adenocarcinoma. Poorly de fined soft tissue along the pancreas uncinate and to the neck/body, Soft tissue encasing the SMA to celiac artery and to common hepatic artery, luminal narrowing with soft tissue encasing the SMV to portal vein, similar to the prior. Soft tissue is not separable from the gastric antrum. Splen ic vein occlusion with collaterals. Biliary stent in place with pneumobilia. Metallic stents extend ing from the gastric lumen to left anterior pararenal fascia with surrounding soft tissue thickening and tethered appearance of the left colon, not significantly changed. Post gonadal vein embolization with artifact, unchanged. Previously noted hepatic lesion in the segment 7, similar to the prior in s ize on image 51 series 4 and on image 55 series 5. Trace fluid in the pelvis, not significantly c hanged. No definite peritoneal nodularity. 7 mm aortocaval lymph node on image 212 series 4, not si gnificantly changed. IMPRESSION: Overall no significant interval change. Vladislav WONG CT PROCEDURES CT Chest with IV Contrast (03/08/2022 10:01 AM CDT) Anatomical Region Laterality Modality Chest, Thoracic RST LOS, Thoracic ARZ N/A Co mputed Tomography, Computed LOS, Thoracic ARZ LOS, Thoracic FLA Olivier graphy LOS Specimen (Source) Anatomical Collection Method Collection Time Re ceived Time Location / / Volume Laterality 03/08/2022 10:31 AM CDT Impressions 03/08/2022 10:38 AM CDT 1. Multiple small pulmonary and pleural nodules have increased in size and are highly suspicious for metastatic disease. 2. New diffuse ill-defined groundglass o pacities and mosaic perfusion suggestive of inflammatory bronchiolitis. Consider drug reaction or atypical infection. Narrative 03/08/2022 10:38 AM CDT EXAM: CT CHEST WITH IV CONTRAST COMPARISON: CT chest with IV contrast en hancement 12/29/2021. FINDINGS: Since 12/29/2021, bilateral pulmonary an d pleural nodules have increased in size. A nodule in the right upper lobe anteriorly on series 3 image 289 measures 5 mm today versus 4 mm previously. Nodule in the left apex on image 97 measures 4 mm today versus 3 mm previously. Nodule in the left base on image 503 measures 4 mm today versus 3 m m previously. Nodularity along the left major fissure on images 303-341 has increased. New mild diffuse bronchial wall thickeni ng and mild ill-defined groundglass opacities throughout both lungs. There is some associated mos aic perfusion in the lower lobes. Findings suggest inflammatory bronchiolitis and could be due to a drug reaction. Stable small left internal mammary lymph node. Right IJ Port-A-Cath with tip at SVC/RA junction. Procedure Note Sridhar Swartz M.D. - 03/08/2022Forma tting of this note might be different from the original. EXAM: CT CHEST WITH IV CONTRAST COMPARISON: CT chest with IV contrast en hancement 12/29/2021. FINDINGS: Since 12/29/2021, bilateral pulmonary an d pleural nodules have increased in size. A nodule in the right upper lobe anteriorly on series 3 image 289 measures 5 mm today versus 4 mm previously. Nodule in the left apex on image 97 measures 4 mm today versus 3 mm previously. Nodule in the left base on image 503 measures 4 mm today versus 3 m m previously. Nodularity along the left major fissure on images 303-341 has increased. New mild diffuse bronchial wall thickeni ng and mild ill-defined groundglass opacities throughout both lungs. There is some associated mos aic perfusion in the lower lobes. Findings suggest inflammatory bronchiolitis and could be due to a drug reaction. Stable small left internal mammary lymph node. Right IJ Port-A-Cath with tip at SVC/RA junction. IMPRESSION: 1. Multiple small pulmonary and pleural nodules have increased in size and are highly suspicious for metastatic disease. 2. New diffuse ill-defined groundglass o pacities and mosaic perfusion suggestive of inflammatory bronchiolitis. Consider drug reaction or atypical infection. Vladsilav WONG CT PROCEDURES documented in this encounter Visit Diagnoses Diagnosis Malignant Neoplasm Of Pancreas (HCC) documented in this encounter Administered Medications Inactive Administered Medications - up to 3 most recent administrations Medication Order MAR Action Action Date Dose Rate Site heparin flush 500 Units Given 03/08/2022 9:38 AM CDT 500 Units 500 Units, intra-catheter, During hospitalization, line care, Prior to discharge, Starting on Mon03/08/22 at 0857, For 1 dose, Implanted Vascular Access Device (IVAD) Venous Non-Valved: Following saline flush prior to discharge. iopromide 300 mg iodine/mL injection 1-200 mL Given 9:14 AM CDT 140 mL (ULTRAVIST) 1-200 mL, intravenous, Once in imaging, contrast, Starting on Mon03/08/22 at 0845, For 1 dose, Imaging Protocol Orders, Dose per Radiant Medication Guidelines sodium chloride (PF) 0.9 % injection 1-1 00 mL Given 03/08/2022 9:14 AM CDT 50 mL 1-100 mL, intravenous, Once, On Mon03/08/22 at 0900, For 1 dose, Imaging Protocol Orders sodium chloride 0.9 % injection 10 mL Given 03/08/2022 9:38 AM CDT 10 mL 10 mL, intravenous, As needed, line care, Implanted Vascular Access Device (IVAD) Venous Non-Valved, Starting on Mon03/08/22 at 0857, Prior to and following infusion, between multiple consecutive infusions, and prior to blood sampling, sodium chloride 0.9 % injection 10 mL Given 03/08/2022 9:01 AM CDT 10 mL Port 10 mL, intravenous, During hospitalization, line care, Prior to discharge, Starting on Mon03/08/22 at 0857, For 1 dose, Implanted Vascular Access Device (IVAD) Venous Non-Valved: Followed by heparin flush prior to discharge. documented in this encounter Additional Health Concerns Assessment Noted Time PHQ-9 Depression Total Score: 2 10/01/2021 10:34 AM CS T documented as of this encounter Care Teams Trim Attacher Relationship Specialty Start Date End Date Elsewhere, Pcp PCP - General Family Medicine 08/12/20 documented as of this encounter
--- OUTSIDE RECORDS SUMMARY | 2022-06-18 16:02 | XMS_ITS | Encounter Summary ---
:1965 Author Organization [facility] Address [address] [place] [phone] Care Team Providers Name Role Phone Elsewhere, Pcp Primary Care Provider Unavailable Reason for Visit Episode Based Medications (Routine) - Closed Specialty Diagnoses / Procedures Referred By Contact Refer red To Contact Diagnoses Malignant Neoplasm Of Pancreas (HCC) Secondary Malignant Neoplasm Liver (HCC) Medication Therapy Long-Term Not Anticoagulant Jesse Perkins [facility] Procedures VT ONDANSETRON HCL INJECTION VT LEUCOVORIN CALCIUM INJECTION VT INJ IRINOTECAN LIPOSOME 1 MG VT FLUOROURACIL INJECTION P.A.-C., M.S. [address] [facility] [address] [place] [phone] Referral ID Status Reason Start Date Expiration Date Visits Requ ested Visits Authorized [id number] Closed 08/27/2021 08/27/2022 36 36 Encounter Details Date Type Department Care Team Description 02/09/2022 Office Visit Department of Oncology Teddy Zarco Malignant Neoplasm Liver (HCC) (Primary Dx); in [place], Vladislav Pereira M.D. Medication Therapy Long-Term Not Anticoa gulant; [place] [address] [facility] Malignant Neoplasm Of Pancreas (HCC) [address] [place] [phone] Social History Tobacco Use Types Packs/Day Years [...] How often do you attend bahai or zoroastrianism services? 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 - 02/09/2022 10:30 AM CDT SUBJECTIVE PRIMARY CARE PHYSICIAN ELSEWHERE, PCP Patient Care Team: Adrian Mills M.D. as External Primary Care Physician (Family Medicine) LOCAL ONCOLOGIST No care hospice team lead to display PRIMARY [place] ONCOLOGIST Deborah Murray M.B.B.S. Maria Del Rosario Gomez APRN, C.N.P., M.S. CHIEF COMPLAINT / REASON FOR VISIT Adam Campbell is a 56 y.o. male who presents for evaluation of locally advanced pancreatic cancer. He is on therapy with nal-Iri, 5FU, and onvansertib. He had a tooth pulled yesterday because of an ongoing infection. Otherwise he is doing fairly well and said after his recent ERCP and antibiotics, that his taste improved and he felt the best he has felt in a long time. He is a little worried hewill backslide because he had some more gas discomfort earlier today. HISTORY OF PRESENT ILLNESS Oncology History Oncology [...] (01/25/2021 - 03/02/2021) Site: Pancreas Technique: 3D CATALYST PLANT SUPERVISOR Goal: Curative Planned Treatment Start Date: 01/25/2021 01/25/2021 - 03/01/2021 Chemotherapy Gemcitabine ( with Radiation ) Start Date: 01/25/2021 08/13/2021 Genetic Testing and Tumor Genotyping [facility] pancreas panel negative 08/18/2021 - Research Study Participant Research Study: A Study to Analyze Onvansertib Treatment in Patients with Metastatic Pancreatic Ductal Adenocarcinoma ([id number]) Treatment Protocol: [facility] CRDF-001 ( Onvansertib (Days 1-5) / Fluorouracil / Leucovorin / Nanoliposomal Irinotecan ) 08/27/2021 - 11/11/2021 Research Study Participant Research Study: A Study to Analyze Onvansertib Treatment in Patients with Metastatic Pancreatic Ductal Adenocarcinoma ([id number]) Treatment Protocol: [facility] CRDF-001 ( Onvansertib (Days 1-10) / Fluorouracil / Leucovorin / Nanoliposomal Irinotecan ) General: Associated symptoms: no chest pain, no fatigue, no fever, no nausea, no numbness and no vomiting The following portions of the patient's history were reviewed and updated as appropriate: allergies,current medications, medical history and problem list. Rate your distress: 2 REVIEW OF SYSTEMS Constitutional: Negative for fatigue, fever, loss of appetite and weight loss of more than 10 pounds. Cardiovascular: Negative for chest pain, pressure or tightness and swelling in the legs or feet. Gastrointestinal: Negative for diarrhea, nausea and vomiting. Hematologic: Negative for abnormal lumps or bumps. Neurological: Negative for numbness or shooting pain in hands, arms, legs, or feet. The following systems were negative: Respiratory, , Musculoskeletal, Psych OBJECTIVE BP 105/68 (BP Location: Right arm, Patient Position: Sitting, Cuff Size: Regular) Pulse 85 Temp 36.4 ??C (Tympanic) Resp 16 Ht 177.2 cm Wt 76 kg SpO2 96% BMI 24.20 kg/m?? PHYSICAL EXAM ECOG performance score: 0 - asymptomatic Constitutional Appearance: Normal appearance. Cardiovascular Rate and Rhythm: Normal rate and regular rhythm. Pulmonary Effort: Pulmonary effort is normal. Breath sounds: Normal breath sounds. Chest Breasts: Right: No supraclavicular adenopathy. Left: No supraclavicular adenopathy. Abdominal General: Bowel sounds are normal. Palpations: [...] Malignant Neoplasm Liver (HCC) #2 Medication Therapy Supervisor Lime Not Anticoagulant #3 Malignant Neoplasm Of Pancreas (HCC) He is doing very well. We will go ahead and proceed with chemotherapy today. PATIENT EDUCATION Ready to learn, no apparent learning barriers were identified; learning preferences include listening. Explained diagnosis and treatment plan; patient expressed understanding of the content. ADMINISTRATIVE BILLING I personally spent 25 minutes in care of the patient today. Time includes both non face to face and face to face patient care. documented in this encounter Plan of Treatment Upcoming Encounters Date Type Specialty Care Team Description 06/22/2022 Lab Laboratory Medicine Maria Del Rosario Gomez AP RN, C.N.P., M.S. [address] [place] [phone] (Mj godoy) 06/22/2022 Infusion Oncology Maria Del Rosario oGmez APRN, C.N .P., M.S. [address] [place] [address] [phone] (Mj godoy) 06/29/2022 Lab Laboratory Medicine Maria Del Rosario Gomez AP RN, C.N.P., M.S. [address] [place] [address] [phone] (Mj godoy) 06/29/2022 Infusion Oncology Maria Del Rosario Gomez APRN, C.N .P., M.S. [address] [place] [address] [phone] (Mj godoy) documented as of this encounter Visit Diagnoses Diagnosis Secondary Malignant Neoplasm Liver (HCC) - Primary Medication Therapy Long-Term Not Anticoa gulant Malignant Neoplasm Of Pancreas (HCC) documented in this encounter Additional Health Concerns Assessment Noted Time PHQ-9 Depression Total Score: 2 10/01/2021 10:34 AM CS T documented as of this encounter Care Teams Tomb Maker Helper Relationship Specialty Start Date End Date Elsewhere, Pcp PCP - General Family Medicine 08/12/20 documented as of this encounter
--- OUTSIDE RECORDS SUMMARY | 2022-06-18 16:02 | XMS_ITS | Encounter Summary ---
:1965 Author Organization [facility] Address [address] [place] [address] Care Team Providers Name Role Phone Elsewhere, Pcp Primary Care Provider Unavailable Reason for Referral Outpatient (Routine) - Closed Specialty Diagnoses / Procedures Referred By Contact Refer red To Contact Social Work Diagnoses Malignant Neoplasm Of Pancreas (HCC) Vladislav Zarco [place] M.D. [address] [place] [phone] Referral ID Status Reason Start Date Expiration Date Visits Requ ested Visits Authorized [id number] Closed 02/09/2022 02/09/2023 1 1 Encounter Details Date Type Department Care Team Description 02/09/2022 Orders Only Department of Gabbi Parry plasm Of Oncology in [facility] Pancreas (HCC) [place], [place] [address] [place] [address] (Primary Dx) [address] [place] [phone] Social History Tobacco Use Types Packs/Day Years [...] How often do you attend restorationism or druze services? 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 [address] [place] [address] [phone] (Mj godoy) 06/22/2022 Infusion Oncology Maria Del Rosario Gomez APRN, C.N .P., M.S. [address] [place] [address] [phone] (Mj rk) 06/29/2022 Lab Laboratory Medicine Maria Del Rosario Gomez AP RN, C.N.P., M.S. [address] [place] [address] [phone] (Mj rk) 06/29/2022 Infusion Oncology Maria Del Rosario Gomez APRN, C.N .P., M.S. [address] [place] [address] [phone] (Mj godoy) Scheduled Referrals Name Type Priority Associated Diagnoses Order S [facility] Social Work - Outpatient Referral Routine Malignant Neoplasm E xpected: General consult Of Pancreas (HCC) 022, (clinic) Expires: 05/12/2023 documented as of this encounter Visit Diagnoses Diagnosis Malignant Neoplasm Of Pancreas (HCC) - P rimary documented in this encounter Additional Health Concerns Assessment Noted Time PHQ-9 Depression Total Score: 2 10/01/2021 10:34 AM CS T documented as of this encounter Care Teams Doctor Of Nursing Practice Relationship Specialty Start Date End Date Elsewhere, Pcp PCP - General Family Medicine 08/12/20 documented as of this encounter
--- OUTSIDE RECORDS SUMMARY | 2022-06-18 16:02 | XMS_ITS | Encounter Summary ---
:1965 [facility] Address [address] [place] [phone] Care Team Providers Name Role Phone Elsewhere, Pcp Primary Care Provider Unavailable Reason for Visit Episode Based Medications (Routine) - Closed Specialty Diagnoses / Procedures Referred By Contact Refer red To Contact Diagnoses Malignant Neoplasm Of Pancreas (HCC) Secondary Malignant Neoplasm Liver (HCC) Medication Therapy Evp Strategy Not Anticoagulant Jesse Perkins, [place] [facility] Procedures NE ONDANSETRON HCL INJECTION NE LEUCOVORIN CALCIUM INJECTION NE INJ IRINOTECAN LIPOSOME 1 MG NE FLUOROURACIL INJECTION P.A.-C., M.S. 200 [facility] 200 [place] [phone] Referral ID Status Reason Start Date Expiration Date Visits Requ ested Visits Authorized [id number] Closed 08/27/2021 08/27/2022 36 36 Encounter Details Date Type Department Care Team Description 02/22/2022 Telemedicine Department of Oncology Vladislav Stein M.D. [address] [place] [phone] Secondary Malignant Neoplasm Liver (HCC) ; in [place], Sabas Tesfaye M.D., Ph.D. [address] [place] [phone] Medication Therapy Evp Strategy Not Anticoa gulant; [place] Malignant Neoplasm Of Pancre as (HCC) [address] [place] [address] [place] [phone] Social History Tobacco Use Types Packs/Day Years [...] How often do you attend hoahaoism or confucianism services? 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 [address] [place] [address] [phone] ( jayne) 06/22/2022 Infusion Oncology Maria Del Rosario Gomez APRN, C.N .P., M.S. [address] [place] [address] [phone] (Wo rk) 06/29/2022 Lab Laboratory Medicine Maria Del Rosario Gomez AP RN, C.N.P., M.S. [address] [place] [address] [phone] (Wo rk) 06/29/2022 Infusion Oncology Maria Del Rosario Gomez APRN, C.N .P., M.S. [address] [place] [address] [phone] (Wo rk) documented as of this encounter Visit Diagnoses Diagnosis Secondary Malignant Neoplasm Liver (HCC) Medication Therapy Chcf Not Anticoa gulant Malignant Neoplasm Of Pancreas (HCC) documented in this encounter Additional Health Concerns Assessment Noted Time PHQ-9 Depression Total Score: 2 10/01/2021 10:34 AM CS T documented as of this encounter Care Teams Procurement Internship Relationship Specialty Start Date End Date Elsewhere, Pcp PCP - General Family Medicine 08/12/20 documented as of this encounter
--- OUTSIDE RECORDS SUMMARY | 2022-06-18 16:02 | XMS_ITS | Encounter Summary ---
:1965 Author Organization [facility] Address [address] [place] [phone] Care Team Providers Name Role Phone Elsewhere, Pcp Primary Care Provider Unavailable Reason for Visit Outpatient (Routine) - Closed Specialty Diagnoses / Procedures Referred By Contact Refer red To Contact Social Work Diagnoses Malignant Neoplasm Of Pancreas (HCC) Vladislav Zarco [facility] Chanelle [address] [place] [phone] Referral ID Status Reason Start Date Expiration Date Visits Requ ested Visits Authorized [id number] Closed 02/09/2022 02/09/2023 1 1 Encounter Details Date Type Department Care Team Description 02/09/2022 Clinical Support Department of Colin Zarco M.D. [address] [place] [phone] Counseling Phase Of Oncology in [facility] [address] [place] [phone] Life Problem (Primary [place], [place] Dx) [address] [place] [address] [phone] Social History Tobacco Use Types Packs/Day Years [...] How often do you attend scientologist or faith services? 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 - 02/09/2022 3:00 PM CDT Psychosocial Assessment SUBJECTIVE ASSESSMENT INFORMATION Referral Source: Medical Oncology Care Team Reason for Consult: complete psychosocial assessment, offer supportive counseling & assist in the navigation of resources as appropriate. Previous Psychosocial Assessment: please see colleague, YOANDY Tarango note from 09/13/2020 Primary Language: Mongolian Person(s) present during interview: met with Mr. Campbell in [address] chemotherapy infusion room Legal Decision Maker: Mr. Campbell functions as own legal decision maker. DISCLAIMER: Mr. Campbell was advised of the various topics that will be assessed during this evaluation. He consented to proceed. The information provided in the assessment is based on review of the medical record as well as the interview. He advised that the content of this interview will be shared withthe health care team. It was discussed that staff are mandated reporters and he reported understanding. HISTORY OF PRESENT ILLNESS Mr. Campbell was diagnosed with Malignant Neoplasm of Pancreas in July 2020. Following diagnosis heunderwent both chemotherapy & radiation treatments. 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 Please review EMR for past medical history. SOCIAL HISTORY Family of Origin: Mr. Campbell is a 56 year old, male, whom resides in [place], [place]. He shares that mother is alive, though not well due to years of consuming alcohol & smoking cigarettes. He reports that biological father was not involved in life. He articulates having been raised by a step-father whom also struggled with alcohol & tobacco use; though less than my mom. He states that step-father years ago from health issues related to cancer. Marital Status: Mr. Campbell & sophia Mcgovern have been together 36+ years. Family / Household: Together Mr. Campbell & sohpia Mcgovern have two daughters. The oldest lives in the [facility]. While the youngest is in [place]. Support Systems: Sophia Mcgovern Daughters Grandchildren Primary caregiver: Self Home Environment: Mr. Campbell resides with sophia Mcgovern in a private residence. Due to 's disability related to M.S. their home environment is handicap accessible. Employment: Due to health issues Mr. Campbell is presently not working. He verbalizes having last worked about 18+ months ago. 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 He reports having found nixon in employment. Due to own health issues, sophia Mcgovern is also not able to work. Psychosocial Risk Factors impacting the patient: Limited caregivers whom could offer physical support if/when needed Abuse, Neglect, and Maltreatment: Past: Mr. Campbell reports having been raised in an incredibly dysfunctional household. He states both mother & step-father consumed alcohol & tobacco in excess. Mr. Campbell shares there was no physical abuse endured. He articulates that there was always safe place to stay & food available, butminimal care or emotional support beyond this. Mr. Campbell does not believe that Child Protective Services (CPS) was ever involved. He denies having ever been placed in foster care. Though Mr. Campbell never required care within the foster system, circumstances were different for . He states did spend much of childhood in/out of foster care. Current Stressors: Understanding health insurance options after dis-enrollment from current policy Coping Skills: Time with spouse - Shaniqua Time with family Time with pets Rest Relaxation Engagement in activities around household that bring nixon / meaning Strengths: Optimistic Insightful Time with pets Housing Stability No Mental Health Issues No Active Substance Abuse Self Advocacy Finances/Insurance Primary insurance: [employer], which is through former employer Pharmacy insurance: [employer] Administration Income: Both Mr. Campbell & sophia Mcgovern receive Social Security Disability (SSDI) benefits. Mr. Campbell explains that goal of today's conversation is to learn more about health insurance options. He articulates needing / wanting to know more as enrollment in employers [employer] policy will be terminating soon. Education provided to Mr. Campbell about COBRA coverage. Explained that this policy provides workers who lose their benefits the right to choose continued group health benefits for a limited period of time after loss of coverage due to involuntary job loss, reduction in hours, transition between jobs, , divorce, etc. Acknowledged that payment for COBRA benefits can be barrier for many individuals, as policy often requires the entire premium for coverage up to 102% of the plan. Articulated that COBRA is available for only 18 months. However, an extension is possible under certain circumstances. Stated that an extension over another 11 months can occur if a qualified beneficiary is eligible for disability (SSDI). Education provided about Medicare benefits. Explained that this could be a benefit option once Mr. Campbell has received Social Security Disability (SSDI) coverage over 24 consecutive months. Since he wasuncertain as to exact timing of SSDI enrollment, Social Work strongly encouraged a timely call to Social Security Administration (SSA) to learn more eligibility date / month for Medicare coverage. Lengthy conversation with Mr. Campbell about Medicare part A, B, C, D, & G. Strongly encouraged himto contact [facility] ([phone]) in weeks / months ahead to learn even more about thesevarious benefits / policies within Medicare. Offered information about Medicaid / Medical Assistance. Explained that this is a policy individualscould pursue if financially limited. After talking more about this policy, Mr. Campbell realized this was benefit for which Lakisha Mcgovern is enrolled. His goal is to avoid this policy, as to not jeopardize any financial means for after own . Finally, spoke with Mr. Campbell about MNSure / Affordable Care Act ([place]). Stated that pursuit of a private policy the open market could be an option too. Advance Directives Mr. Campbell reports having completed Health Care Directive (HCD). At this time document is not scannedinto EMR. Baseline Functional Status Mobility: independent Dressing: independent Feeding: independent Bathing: independent Grooming: independent Toileting: independent Shopping: independent Transportation: independent to drive Medication Management: independent Housekeeping: independent Meal Preparation: independent Finances: independent Assistive Devices: cell phone Baseline Services / Resources Primary care clinic and provider: Dr. Adrian Mills ([phone]) Services/Resources: None Lakisha Mcgovern does receive CADI waiver services. Caregiver During Treatment/Appointments: self Caregiver at Home: self & spouse, extended family as physical abilities & time permit Permission received to contact: spouse - Shaniqua & daughter - Marie Cortes Anticipated Needs Functional Status: None Assistive Devices: None Services/Resources: None Transportation: independent to drive OBJECTIVE Substance Use Mr. Campbell reports no history of or present concerns related to alcohol or other substance use. He states there was no desire to engage in chemical use after being raised within household that used suchsubstances in excess. Mental Health Mr. Campbell reports having no acute or chronic mental health history. He articulates having a qualityof life at this time. Mental Status: Orientation: Oriented to person, place and time Level of consciousness: Awake and alert Appearance: Relaxed and Well-groomed Behavior observed: Calm and Interactive Memory: Excellent based on ease of recalling past & present life narrative Cooperation: Cooperative Concentration: Excellent based on ease of following the flow of today's conversation Mood: euthymic Affect: Mood-congruent Speech: Within normal limits for volume, rate and tone. Thought content: No abnormality noted Thought process: Logical, linear, and goal-directed Judgement: good based on today's conversation Insight: good based on today's conversation Review of Psychiatric Symptoms: Anxiety Symptoms: no symptoms of anxiety Depression Symptoms: no symptoms Other Mental Health Assessments: None Suicide and Safety Risk Assessment: Suicidal: No Homicidal: No Risk Factors: Medical Comorbidities Main Caregiver to sophia calvo has M.S. diagnosis Protective Factors: Willingness to engage in all aspects of treatment Able to engage in effective coping mechanisms Access to mental health care Adherence to medical treatment Caregiver for sophia calvo has M.S. diagnosis Connectedness to individuals, family, community, and social institutions Constructive use of leisure/recreation time Engagement in enjoyable activities Future oriented Identifies reasons for living No current SI or SH urges, ideation, plan or intent Positive social support of family or significant other Safe and stable living environment Supportive social network of friends Risk Level: None evident, based on patient presentation, history and responses in this session. ASSESSMENT Discussion: Supportive counseling provided regarding the experience of living with a life- threatening illness and the feelings that may wax / wane throughout treatment. Talked about the stress / distress that often arises following a cancer diagnosis & normalized these emotions / experiences. Acknowledged howa period of changes to health insurance benefits can be filled with uncertainty & anxiety. Commended Mr. Campbell's resiliency, determination, & perseverance both with regards to own cancer journey & role as caregiver for . Extended supportive counseling through empathy, active, & reflective listening. Validated & normalized thoughts, feelings, emotions & experiences around cancer diagnosis & treatments. Education provided about Social Work role & availability within Medical Oncology Care team. Offered to follow-up with Mr. Campbell in 1-2 months time for supportive counseling & to address any follow-up questions. He was accepting of offer. Provided him my contact information. Encouraged him to reach out if questions, concerns, assistance in navigating resources, or desire for supportive counseli ng arise prior to our next scheduled appointment. Impression Mr. Campbell is pleasant, articulate, & engaged in conversation. He has good insight into cancer diagnosis & treatment care plan. He is quite motivated to continue forth with cancer directed care.He does not have an acute or chronic mental health history. Though he did endorse being raised in a chaotic household environment due to mother & step-father alcohol & tobacco abuse. He is ableto identify adaptive coping strategies & there is willingness to engage within these skills daily. He does not endorse having any thoughts, plan, or intent to harm self. Mr. Campbell does not have anychronic or acute chemical health history. He has a small network of informal support. Main caregiver, - Shaniqua, has own health issues / disabilities related to M.S. diagnosis. He has a specific goal/ purpose for today's conversation. He asks appropriate & insightful questions. He is appreciative of the information shared & motivated to follow-up with resources / suggestions offered duringconversation. Interventions: ~ Psychosocial Assessment ~ Education provided about the role of Family Resource Coordinator professionals here at [facility] ~ Supportive Counseling Regarding the experience of Living with a life threatening illness ~ Psychoeducation on eligibility for Medicare due to enrollment in Social Security Disability (SSDI) ~ Psychoeducation on Medicare coverage / benefits ~ Psychoeducation on COBRA benefits ~ Psychoeducation on Affordable Care Act ([place]) ~ Psychoeducation on Senior Linkage Line ~ Reflective Listening ~ Resilience Promotion Treatment Plan Created on: February 09, 2022 Chief Complaint/Diagnosis: Counseling Phase of Life Service type(s): Individual Therapy modalities: Solution Focused Brief Therapy, Strength-based Therapy, Narrative Therapy and Cognitive Processing Therapy Amount of services: Less than 60 minutes Frequency of services: follow-up in 1-2 months time Duration of services: 2 months Anticipated goals: 1. Mr. Campbell will continue utilizing adaptive coping strategies to marli mental health symptoms. 2. Mr. Campbell is agreeable to follow-up visit with Medical Oncology Clinical Family Resource Coordinator for supportive counseling & psychoeducation of resources. Mr. Campbell is in agreement with this treatment plan. PLAN: 1. Social Work will send Mr. Campbell a portal message with overview / summary of information discussedtoday about Social Security Administration, Medicare, Affordable Care Act, COBRA, etc. 2. Mr. Campbell will reach out if questions, concerns, assistance in navigating resources, &/or desire for supportive counseling visit arises prior to next scheduled appointment. 3. Social Work will initiate order for follow-up visit in roughly 1-2 months time. Patient Education: ~ No apparent barriers present, ready to learn. ~ The following educational material were provided: none Anticipated barriers to the transition of care/plan: None Face to face time (for billing purposes) 45 minutes total time 45 minutes spent in counseling with patient documented in this encounter Plan of Treatment Upcoming Encounters Date Type Specialty Care Team Description 06/22/2022 Lab Laboratory Medicine Maria Del Rosario Gomez AP RN, C.N.P., M.S. [address] [place] [address] [phone] (Mj godoy) 06/22/2022 Infusion Oncology Maria Del Rosario Gomez APRN, C.N .P., M.S. [address] [place] [address] [phone] (Mj godoy) 06/29/2022 Lab Laboratory Medicine Maria Del Rosario Gomez AP RN, C.N.P., M.S. [address] [place] [address] [phone] (Mj godoy) 06/29/2022 Infusion Oncology Maria Del Rosario Gomez APRN, C.N .P., M.S. [address] [place], [place] [phone] (Wo rk) documented as of this encounter Visit Diagnoses Diagnosis Counseling Phase Of Life Problem - Prima ry documented in this encounter Additional Health Concerns Assessment Noted Time PHQ-9 Depression Total Score: 2 10/01/2021 10:34 AM CS T documented as of this encounter Care Teams Director Design Relationship Specialty Start Date End Date Elsewhere, Pcp PCP - General Family Medicine 08/12/20 documented as of this encounter
--- OUTSIDE RECORDS SUMMARY | 2022-06-18 16:02 | XMS_ITS | Encounter Summary ---
:1965 Author [address] [facility] Address [address] [place] [address] Care Team Providers Name Role Phone Elsewhere, Pcp Primary Care Provider Unavailable Reason for Visit Reason Comments dental work-tooth removal Encounter Details Date Type Department Care Team Description 02/08/2022 Clinical Department of guadalupe Parry work-t ooth Communication [facility] [place] [address] [facility] [address] [place] [phone] Social History Tobacco Use Types Packs/Day Years [...] How often do you attend synagogue or synagogue services? 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 yes Reason for call: Dr. Moore called back & I relayed Dr. Zarco' message. She said she has now referred patient to [facility] as it is more complicated then she thought. She is not sure if they will be calling us as well or not. Thank you, Mireya RST ONC [facility] AA POD 1 Telephone Encounter - Vy Parry R.N. - 02/08/2022 1:[address] Zarco - OK to proceed, but will need a CBC prior to to ensure adequate blood counts. Telephone Encounter - SommerPatricia Santosh - 02/08/2022 12:08 PM CDT Do we have a valid auth to speak with caller? yes Reason for call: patient has dental appt today at 1pm and he will probably need a tooth removed. Is it okay to do this? He is scheduled for chemo tomorrow. Thank you, Mireya RST ONC [facility] AA POD 1 documented in this encounter Plan of Treatment Upcoming Encounters Date Type Specialty Care Team Description 06/22/2022 Lab Laboratory Medicine Maria Del Rosario Gomez AP RN, C.N.P., M.S. [address] [place] [address] [phone] (Wo rk) 06/22/2022 Infusion Oncology Maria Del Rosario Gomez APRN, C.N .P., M.S. [address] [place] [address] [phone] (Wo rk) 06/29/2022 Lab Laboratory Medicine Maria Del Rosario Gomez AP RN, C.N.P., M.S. [address] [place] [address] [phone] (Wo rk) 06/29/2022 Infusion Oncology Maria Del Rosario Gomez APRN, C.N .P., M.S. [address] [place] [address] [phone] (Wo rk) documented as of this encounter Visit Diagnoses Not on filedocumented in this encounter Additional Health Concerns Assessment Noted Time PHQ-9 Depression Total Score: 2 10/01/2021 10:34 AM CS T documented as of this encounter Care Teams Microbiological Lab Technician Relationship Specialty Start Date End Date Elsewhere, Pcp PCP - General Family Medicine 08/12/20 documented as of this encounter
--- OUTSIDE RECORDS SUMMARY | 2022-06-18 16:02 | XMS_ITS | Encounter Summary ---
:1965 Author Organization [facility] Address [address] [place] [phone] Care Team Providers Name Role Phone Elsewhere, Pcp Primary Care Provider Unavailable Reason for Visit Reason Comments Med Refill Encounter Details Date Type Department Care Team Description 02/20/2022 Refill Department of Palliative Care [place] T, GUERO, Med Refill in [facility] elke C.N.P., M.S.N. [address] [facility] [address] [place] [phone] [place] [address] [phone] (Wo rk) Social History Tobacco Use Types [...] How often do you attend zoroastrian or yazidi services? 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 [address] [place] [address] [phone] (Mj godoy) 06/22/2022 Infusion Oncology Maria Del Rosario Gomez APRN, C.N .P., M.S. [address] [place] [address] [phone] (Mj godoy) 06/29/2022 Lab Laboratory Medicine Maria Del Rosario Gomez AP RN, C.N.P., M.S. [address] [place] [address] [phone] (Mj godoy) 06/29/2022 Infusion Oncology Maria Del Rosario Gomez APRN, C.N .P., M.S. [address] [place] [address] [phone] (Mj godoy) documented as of this encounter Visit Diagnoses Not on filedocumented in this encounter Additional Health Concerns Assessment Noted Time PHQ-9 Depression Total Score: 2 10/01/2021 10:34 AM CS T documented as of this encounter Care Teams Customer Service Leader Relationship Specialty Start Date End Date Elsewhere, Pcp PCP - General Family Medicine 08/12/20 documented as of this encounter
--- OUTSIDE RECORDS SUMMARY | 2022-06-18 16:02 | XMS_ITS | Encounter Summary ---
:1965 Author Organization [facility] Address [address] [place] [address] Care Team Providers Name Role Phone Elsewhere, Pcp Primary Care Provider Unavailable Reason for Visit Episode Based Medications (Routine) - Closed Specialty Diagnoses / Procedures Referred By Contact Refer red To Contact Diagnoses Malignant Neoplasm Of Pancreas (HCC) Secondary Malignant Neoplasm Liver (HCC) Medication Therapy Licensed Occupational Therapy Assistant Not Anticoagulant Jesse Perkins Rst [facility] Procedures [place] ONDANSETRON HCL INJECTION TN LEUCOVORIN CALCIUM INJECTION TN INJ IRINOTECAN LIPOSOME 1 MG TN FLUOROURACIL INJECTION P.A.-C., M.S. [address] [facility] [address] [place] [phone] Referral ID Status Reason Start Date Expiration Date Visits Requ ested Visits Authorized [id number] Closed 08/27/2021 08/27/2022 36 36 Encounter Details Date Type Department Care Team Description 02/22/2022 Infusion Department of Oncology Deborah Murray Secon dary Malignant Neoplasm Liver (HCC) (Primary Dx); in [facility] elke VillaBRiazSRiaz Medication Therapy Fci Not Anticoa gulant; [address] [place] [address] [address] [facility] Malignant Neoplasm Of Pancreas ([place]) [place] [address] [place], [place] [phone] Social History Tobacco Use Types Packs/Day Years [...] er 01/15/2021 How often do you attend worship or christianity services? 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 [address] [place] [address] [phone] (Mj godoy) 06/22/2022 Infusion Oncology Maria Del Rosario Gomez APRN, C.N .P., M.S. [address] [place] [address] [phone] (Mj godoy) 06/29/2022 Lab Laboratory Medicine Maria Del Rosario Gomez AP RN, C.N.P., M.S. [address] [place] [address] [phone] (Mj godoy) 06/29/2022 Infusion Oncology [place], Maria Del Rosario GUERO Sanchez, C.N .P., M.S. [address] [place] [address] [phone] (Wo rk) documented as of this encounter Visit Diagnoses Diagnosis Secondary Malignant Neoplasm Liver (HCC) - Primary Medication Therapy Fci Not Anticoa gulant Malignant Neoplasm Of Pancreas (HCC) documented in this encounter Administered Medications Inactive Administered Medications - up to 3 most recent administrations Medication Order MAR Action Action Date Dose Rate Site dexAMETHasone injection 8 mg Given 02/22/2022 9:57 AM CDT 8 mg (DECADRON) 8 mg, intravenous, Once, On Mon02/22/22 at 1000, For 1 dose fluorouraciL 5,000 mg in NaCl 0.9% Given 02/22/2022 12:51 PM CDT 5,000 mg 5 mL/hr 230 mL IVPB (ADRUCIL) 5,000 mg (rounded from 4,752 mg = 2,400 mg/m2 ? 1.98 m2 Order-specific BSA), intravenous, at 5 mL/hr, Administer over 46 Hours, over 46 hours, First dose on Mon02/22/22 at 1200, For 1 dose, Continuous infusion over 46 hours immediately following Leucovorin. Dose reflects TOTAL CALCULATED DOSE to be administered via continuous infusion over the specified length of treatment. irinotecan liposomaL 86 mg in D5W New Bag 02/22/2022 10:33 AM CDT 86 mg 347 mL/hr 520 mL IVPB (ONIVYDE) 86 mg (rounded from 85.14 mg = 43 mg/m2 ? 1.98 m2 Order-specific BSA), intravenous, at 347 mL/hr, Administer over 90 Minutes, Once, On Mon02/22/22 at 1000, For 1 dose, Administer immediately following the administration of oral onvansertib. Protect from light. No in-line filter. leucovorin 800 mg in NaCl 0.9% 315 New Bag 02/22/2022 12:17 PM CDT 800 mg 630 mL/hr mL IVPB 800 mg (rounded from 792 mg = 400 mg/m2 ? 1.98 m2 Order-specific BSA), intravenous, at 630 mL/hr, Administer over 30 Minutes, Once, On Mon02/22/22 at 1130, For 1 dose, Follows irinotecan liposome. ondansetron (PF) injection 8 mg (ZOFRAN) Given 02/22/2022 9:57 AM CDT 8 mg 8 mg, intravenous, Once, On Mon02/22/22 at 1000, For 1 dose [facility] [id number] onvansertib capsule 10 Given 12:16 PM CDT 10 mg mg (PCM-075) 10 mg, oral, Once, On Mon02/22/22 at 1000, For 1 dose, This is the 5 [...] prior to liposomal irinotecan Infusion. [facility] [id number] onvansertib capsule 20 Given 12:16 PM CDT 20 mg mg (PCM-075) 20 mg, oral, Once, On Mon02/22/22 at 1000, For 1 dose, This is the 20 [...] documented as of this encounter Care Teams Asp Net Mvc Developer Relationship Specialty Start Date End Date Elsewhere, Pcp PCP - General Family Medicine 08/12/20 documented as of this encounter
--- OUTSIDE RECORDS SUMMARY | 2022-06-18 16:02 | XMS_ITS | Encounter Summary ---
:1965 Author Organization [facility] Address [address] [place] [address] Care Team Providers Name Role Phone Elsewhere, Pcp Primary Care Provider Unavailable Reason for Visit Episode Based Medications (Routine) - Closed Specialty Diagnoses / Procedures Referred By Contact Refer red To Contact Diagnoses Malignant Neoplasm Of Pancreas (HCC) Secondary Malignant Neoplasm Liver (HCC) Medication Therapy Pole Framer Machine Not Anticoagulant Jesse Perkins, uQincy Onc Rogo Procedures OR ONDANSETRON HCL INJECTION OR LEUCOVORIN CALCIUM INJECTION OR INJ IRINOTECAN LIPOSOME 1 MG OR FLUOROURACIL INJECTION P.A.-C., M.S. 200 [facility] [address] [place] [phone] Referral ID Status Reason Start Date Expiration Date Visits Requ ested Visits Authorized [id number] Closed 08/27/2021 08/27/2022 36 36 Encounter Details Date Type Department Care Team Description 02/22/2022 Office Visit Department of Oncology Sabas Tesfaye, Lee cation Therapy Detention Not Anticoagulant (Primary Dx); in Chanelle Perdomo, Ph.D. Secondary Malignant Neoplasm Liver (HCC) ; [place] [address] [place] [address] Malignant Neoplasm Of Pancreas (HCC) [address] [place] [phone] Social History Tobacco Use Types Packs/Day Years [...] er 01/15/2021 How often do you attend latter-day or catholic services? 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 - 02/22/2022 8:30 AM CDT SUBJECTIVE REFERRAL Jesse Perkins P.A.-C., M.S. CHIEF COMPLAINT / REASON FOR VISIT Primary Staff: Dr. Deborah Hunter Ma Metastatic pancreatic cancer HISTORY OF PRESENT ILLNESS Oncology History Malignant Neoplasm Of Pancreas (HCC) [...] (01/25/2021 - 03/02/2021) Site: Pancreas Technique: 3D PLASTIC BOAT BUFFER Goal: Curative Planned Treatment Start Date: 01/25/2021 01/25/2021 - 03/01/2021 Chemotherapy Gemcitabine ( with Radiation ) Start Date: 01/25/2021 08/13/2021 Genetic Testing and Tumor Genotyping [facility] pancreas panel negative 08/18/2021 - Research Study Participant Research Study: A Study to Analyze Onvansertib Treatment in Patients with Metastatic Pancreatic Ductal Adenocarcinoma ([id number]) Treatment Protocol: [facility] CRDF-001 ( Onvansertib (Days 1-5) / Fluorouracil / Leucovorin / Nanoliposomal Irinotecan ) 08/27/2021 - 11/11/2021 Research Study Participant Research Study: A Study to Analyze Onvansertib Treatment in Patients with Metastatic Pancreatic Ductal Adenocarcinoma ([id number]) Treatment Protocol: [facility] CRDF-001 ( Onvansertib (Days 1-10) / Fluorouracil / Leucovorin / Nanoliposomal Irinotecan ) Interval History Mr. Adam Campbell is a 56 year-old gentleman accompanied by his from [place], [place] presenting in follow-up for metastatic pancreatic cancer. The following were reviewed and updated as appropriate: allergies, current medications, family history, medical history, social history, surgical history, and problem list. REVIEW OF SYSTEMS REVIEW OF SYSTEMS Reviewed encounter review of systems and pertinent responses are noted in the history. OBJECTIVE VITALS There were no vitals filed for this visit. Wt Readings from Last 3 Encounters: 02/09/22 76 kg 01/26/22 76.2 kg 01/25/22 76.8 kg BMI Readings from Last 3 Encounters: 02/09/22 24.20 kg/m?? 01/26/22 24.50 kg/m?? 01/25/22 24.68 kg/m?? PHYSICAL EXAM General: Patient is in no acute distress, sitting comfortably on the couch, very pleasant HEENT: Pupils are equal and reactive to light, extraocular movements intact, sclerae are clear Skin: No concerning rashes or lesions appreciated Lymph: No cervical or supraclavicular lymphadenopathy Cardiovascular: Regular rate and rhythm, no murmurs appreciated, no pedal edema. Respiratory: No increased work of breathing, clear to auscultation bilaterally. Gastrointestinal: Abdomen is mildly distended, tympanitic to percussion, mildly tender to palpation particularly in the lower quadrants, hypoactive bowel sounds with no organomegaly. Musculoskeletal: No evidence of active synovitis Psychiatric: Alert and oriented with appropriate mood and affect. ECOG Performance Status: 0 ASSESSMENT / PLAN ASSESSMENT 1. Metastatic adenocarcinoma of the pancreatic head Mr. Adam Campbell is a 56 year-old gentleman accompanied by his from [place], [place] presenting in follow-up for metastatic pancreatic cancer. ?? Mrs. Campbell is currently enrolled in the CRDF-001 clinical trial involving 5- fluorouracil, jolly-liposomal irinotecan, and onvansertib. We reviewed his blood work demonstrating mild, stable normocytic anemia to 10.4 with normal plateletand leukocyte counts. Electrolytes are reassuring and renal function is stable with a creatinine of 0.97. Liver biochemical studies reveal mild transaminitis with an ALT and AST of 95 and 69 respectively. Alkaline phosphatase appears to have increased from 156 at the beginning of the month to 438 today. Bilirubin levels are normal. His major complaint at this point is intermittent lower, shifting abdominal discomfort. He describesa sensation of bloating/distension and gaseous pain refractory to simethicone. While he has about a single loose bowel movement daily, he describes what sounds like constipation having to sit and wait for a bowel movement and straining. He does not have a consistent bowel regimen but does use both oxycodone and ondansetron intermittently. I recommended starting with MiraLax daily as this is a good maintenance bowel regimen. I also suggested he use senna as needed when using opioids. With regular bowel movements, hopefully his intermittent abdominal discomfort with improve. PLAN ?? Laboratory and clinical parameters are appropriate to proceed with cycle twelve of 5-fluorouracil, jolly-liposomal irinotecan and onvansertib (CRDF-001 trial). ??? Due for re-staging scans on March 08. PATIENT EDUCATION: Ready to learn, no apparent learning barriers were identified; learning preferences include listening. Explained diagnosis and treatment plan; patient expressed understanding of the content. I personally spent >50% of a total 30 minutes with the patient in counseling and coordination of care. documented in this encounter Plan of Treatment Upcoming Encounters Date Type Specialty Care Team Description 06/22/2022 Lab Laboratory Medicine Maria Del Rosario Gomez AP RN, C.N.P., M.S. [address] [place] [address] [phone] (Mj godoy) 06/22/2022 Infusion Oncology Maria Del Rosario Gomez APRN, C.N .P., M.S. [address] [place] [address] [phone] (Mj godoy) 06/29/2022 Lab Laboratory Medicine Maria Del Rosario Gomez AP RN, C.N.P., M.S. [address] [place] [address] [phone] (Mj godoy) 06/29/2022 Infusion Oncology Maria Del Rosario Gomez APRN, C.N .P., M.S. [address] [place] [address] [phone] (Mj godoy) documented as of this encounter Visit Diagnoses Diagnosis Medication Therapy Pole Framer Machine Not Anticoa gulant - Primary Secondary Malignant Neoplasm Liver (HCC) Malignant Neoplasm Of Pancreas (HCC) documented in this encounter Additional Health Concerns Assessment Noted Time PHQ-9 Depression Total Score: 2 10/01/2021 10:34 AM CS T documented as of this encounter Care Teams Industrial Energy Engineer Relationship Specialty Start Date End Date Elsewhere, Pcp PCP - General Family Medicine 08/12/20 documented as of this encounter
--- OUTSIDE RECORDS SUMMARY | 2022-06-18 16:02 | XMS_ITS | Encounter Summary ---
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 [address] [place] [address] [address] [place] [phone] Referral ID Status Reason Start Date Expiration Date Visits Requ ested Visits Authorized [id number] Closed 08/27/2021 08/27/2022 36 36 Encounter Details Date Type Department Care Team Description 03/08/2022 Lab Department of Laboratory Deborah Murray Sec ondary Malignant Neoplasm Liver (HCC) (Primary Dx); Medicine and Pathology, M.B.B.S. Medication Therapy Fpc Not Anticoa gulant; [facility], in [address] [place] [address] Malignant Neoplasm Of Pancreas (HCC); [place], [place] Bacteremia [address] [place] [id number] [place] [address] [phone] Social History Tobacco Use Types Packs/Day Years [...] How often do you attend hinduism or taoist services? 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 [address] [place] [phone] (Mj godoy) 06/22/2022 Infusion Oncology Maria Del Rosario Gomez APRN, C.N .P., M.S. [address] [place] [phone] (Mj godoy) 06/29/2022 Lab Laboratory Medicine Maria Del Rosario Gomez AP RN, C.N.P., M.S. [address] [place] [phone] (Mj godoy) 06/29/2022 Infusion Oncology Maria Del Rosario Gomez APRN, C.N .P., M.S. [address] [place] [phone] (Mj godoy) documented as of this encounter Procedures Procedure Name Priority Date/Time Associated Comments Diagnosis [facility] RESEARCH ORDER, B Routine 03/08/2022 8:20 Secondary Re sults for this AM CDT Malignant Neoplasm procedure are in Liver (HCC) the results Medication Therapy section. Fpc Not Anticoagulant Malignant Neoplasm Of Pancreas (HCC) CBC WITH DIFFERENTIAL, B Routine 03/08/2022 8:20 Secondary Results for this AM CDT Malignant Neoplasm procedure are in Liver (HCC) the results Medication Therapy section. Fpc Not Anticoagulant Malignant Neoplasm Of Pancreas (HCC) ALANINE AMINOTRANSFERASE Routine 03/08/2022 8:20 Secondary Results for this (ALT), S/P AM CDT Malignant Neoplasm procedure are in Liver (HCC) the results Medication Therapy section. Fpc Not Anticoagulant Malignant Neoplasm Of Pancreas (HCC) ASPARTATE Routine 03/08/2022 8:20 Secondary Results for this AMINOTRANSFERASE (AST), AM CDT Malignant Neoplas m procedure are in S/P Liver (HCC) the results Medication Therapy section. Operations Intelligence Superintendent Not Anticoagulant Malignant Neoplasm Of Pancreas (HCC) PHOSPHORUS (INORGANIC), Routine 03/08/2022 8:20 Secondary R esults for this S AM CDT Malignant Neoplasm procedure are in Liver (HCC) the results Medication Therapy section. Operations Intelligence Superintendent Not Anticoagulant Malignant Neoplasm Of Pancreas (HCC) ALKALINE PHOSPHATASE, Routine 03/08/2022 8:20 Secondary Res ults for this S/P AM CDT Malignant Neoplasm procedure are in Liver (HCC) the results Medication Therapy section. Fpc Not Anticoagulant Malignant Neoplasm Of Pancreas (HCC) MAGNESIUM, S Routine 03/08/2022 8:20 Secondary Results for this AM CDT Malignant Neoplasm procedure are in Liver (HCC) the results Medication Therapy section. Fpc Not Anticoagulant Malignant Neoplasm Of Pancreas (HCC) BILIRUBIN, TOT, S/P Routine 03/08/2022 8:20 Secondary Resul ts for this AM CDT Malignant Neoplasm procedure are in Liver (HCC) the results Medication Therapy section. Operations Intelligence Superintendent Not Anticoagulant Malignant Neoplasm Of Pancreas (HCC) ALBUMIN, S/P Routine 03/08/2022 8:20 Secondary Results for this AM CDT Malignant Neoplasm procedure are in Liver (HCC) the results Medication Therapy section. Fpc Not Anticoagulant Malignant Neoplasm Of Pancreas (HCC) BASIC METABOLIC PANEL, Routine 03/08/2022 8:20 Secondary Re sults for this S/P AM CDT Malignant Neoplasm procedure are in Liver (HCC) the results Medication Therapy section. Operations Intelligence Superintendent Not Anticoagulant Malignant Neoplasm Of Pancreas (HCC) documented in this encounter Results Miscellaneous Research, B (03/08/2022 8:20 AM CDT) P athologist Signature Number of 3 03/08/2022 HSS Specimens 8:20 AM CDT Specimen Anatomical Collection Method Collection Time Receive d Time (Source) Location / / Volume Laterality Varies (Blood, 03/08/2022 8:20 AM 022 8:20 Venous) CDT AM CDT Vladislav Zarco M.D. LAB RESEARCH NO RESULT VERENICE MCFADDEN Performing Organization Address City/[facility] [place] Phon e Number [facility] - 200 [place], [place] [address] [place], [place] [id number] [place] [address] (ABNORMAL) ALT (Alanine Aminotransferase) (03/08/2022 8:20 AM CDT) [facility] gist Method Time Signature Alanine 116 (H) 7 - 55 03/08/2022 DTL Aminotransferase U/L 9:31 AM CDT (ALT), S Specimen Anatomical Collection Method Collection Time Receive d Time (Source) Location / / Volume Laterality Blood (Blood, 03/08/2022 8:20 AM 03/08/20 22 9:05 Venous) CDT AM CDT Deborah VillaB.S. LAB BLOOD ADD-ON Performing Organization Address City/[facility] Code Phon e Number [facility] - 200 [place], [place] [address] [place] [address] (ABNORMAL) AST (Aspartate Aminotransferase) (03/08/2022 8:20 AM CDT) [facility] gist Method Time Signature Aspartate 102 (H) 8 - 48 03/08/2022 [facility] Aminotransferase U/L 8:53 AM CDT (AST), P Specimen Anatomical Collection Method Collection Time Receive d Time (Source) Location / / Volume Laterality Blood (Blood, 03/08/2022 8:20 AM 03/08/20 22 8:30 Venous) CDT AM CDT Deborah VillaB.S. LAB BLOOD ADD-ON Performing Organization Address City/[facility] Phon e Number [facility] - [address] [place] [address] Bilirubin, Total (03/08/2022 8:20 AM CDT) athologist Signature Bilirubin, 0.6 <=1.2 mg/dL 03/08/2022 M[facility] Total, P 8:53 AM CDT Specimen Anatomical Collection Method Collection Time Receive d Time (Source) Location / / Volume Laterality Blood (Blood, 03/08/2022 8:20 AM 03/08/20 8:30 Venous) CDT AM CDT Deborah VillaB.SRiaz LAB BLOOD ADD-ON Performing Organization Address [facility] Phon e Number [facility] - 200 [place] [phone] [employer] [facility] [place] [address] (ABNORMAL) Alkaline Phosphatase (03/08/2022 8:20 AM CDT) athologist Signature Alkaline 499 (H) 40 - 129 03/08/2022 DTL Phosphatase, S U/L 9:31 AM CDT Specimen Anatomical Collection Method Collection Time Receive d Time (Source) Location / / Volume Laterality Blood (Blood, 03/08/2022 8:20 AM 03/08/20 22 9:05 Venous) CDT AM CDT Deborah VillaB.S. LAB BLOOD ADD-ON Performing Organization Address City/[facility] Phon e Number [facility] - [address] [place], [place] [address] [employer] [facility] DTL [address] Magnesium (03/08/2022 8:20 AM CDT) athologist Signature Magnesium, S 1.8 1.7 - 2.3 03/08/2022 DTL mg/dL 9:31 AM CDT Specimen Anatomical Collection Method Collection Time Receive d Time (Source) Location / / Volume Laterality Blood (Blood, 03/08/2022 8:20 AM 03/08/20 9:05 Venous) CDT AM CDT Deborah VillaB.S. LAB BLOOD ADD-ON Performing Organization Address City/[facility] Code Phon e Number [facility] - [address] Phosphorus Inorganic (03/08/2022 8:20 AM CDT) P athologist Signature Phosphorus 2.5 2.5 - 4.5 03/08/2022 DTL (Inorganic), S mg/dL 9:31 AM CDT Specimen Anatomical Collection Method Collection Time Receive d Time (Source) Location / / Volume Laterality Blood (Blood, 03/08/2022 8:20 AM 03/08/20 9:05 Venous) CDT AM CDT Deborah VillaB.S. LAB BLOOD ADD-ON Performing Organization Address City/[facility] Code Phon e Number [facility] - [address] (ABNORMAL) Albumin (03/08/2022 8:20 AM CDT) P athologist Signature Albumin, S 3.4 (L) 3.5 - 5.0 03/08/2022 DTL g/dL 9:31 AM CDT Specimen Anatomical Collection Method Collection Time Receive d Time (Source) Location / / Volume Laterality Blood (Blood, 03/08/2022 8:20 AM 03/08/20 22 9:05 Venous) CDT AM CDT Deborah VillaB.S. LAB BLOOD ADD-ON Performing Organization Address City/[facility] Phon e Number [facility] - [address] (ABNORMAL) Basic Metabolic Panel (03/08/2022 8:20 AM CDT) P athologist Signature Potassium, P 3.4 (L) 3.6 - 5.2 03/08/2022 METH mmol/L 8:53 AM CDT Sodium, P 134 (L) 135 - 145 03/08/2022 METH mmol/L 8:53 AM CDT Chloride, P 100 98 - 107 03/08/2022 METH mmol/L 8:53 AM CDT Bicarbonate, P 25 22 - 29 03/08/2022 [facility] mmol/L 8:53 AM CDT Anion Gap, P 9 7 - 15 03/08/2022 [facility] 8:53 AM CDT BUN (Blood Urea 7 (L) 8 - 24 03/08/2022 [facility] Nitrogen), P mg/dL 8:53 AM CDT Creatinine 0.94 0.74 - 03/08/2022 M[facility] 1.35 mg/dL 8:53 AM CDT eGFR-Black/Afri >90 >=60 03/08/2022 M[facility] can Georgian mL/min/BSA 8:53 AM CDT Comment: ----ADDITIONAL INFORMATION---- Estimated GFR calculated using the 2009 CKD_EPI creatinine equation. eGFR Non-Black/ 90 >=60 mL/min/BSA 8:53 AM CDT METH Comment: ----ADDITIONAL INFORMATION---- Estimated GFR calculated using the 2009 CKD_EPI creatinine equation. Calcium, Total, P 8.6 8.6 - 10.0 mg/dL 03/08/2022 8:53 AM CDT METH Glucose, P 126 70 - 140 mg/dL 03/08/2022 8:53 AM CDT M ETH Specimen Anatomical Collection Method Collection Time Receive d Time (Source) Location / / Volume Laterality Blood (Blood, 03/08/2022 8:20 AM 03/08/20 8:30 Venous) CDT AM CDT Deborah VillaBRiazS. LAB BLOOD ADD-ON Performing Organization Address City/State/ZIP Code Phon e Number [facility] - [address] [place], [place] [address] [employer] [facility] [facility] [place] [address] Laboratories-[facility] [address] (ABNORMAL) CBC with Differential, Blood (03/08/2022 8:20 AM CDT) [facility] gist Method Time Signature Hemoglobin 9.9 (L) 13.2 - 03/08/2022 DTL 16.6 g/dL 9:06 AM CDT Hematocrit 29.9 (L) 38.3 - 03/08/2022 DTL 48.6 % 9:06 AM CDT Erythrocytes 3.55 (L) 4.35 - 03/08/2022 DTL 5.65 9:06 AM CDT x10(12)/L MCV 84.2 78.2 - 03/08/2022 DTL 97.9 fL 9:06 AM CDT RBC Distrib Width 15.7 (H) 11.8 - 03/08/2022 DTL 14.5 % 9:06 AM CDT Platelet Count 152 135 - 317 03/08/2022 DTL x10(9)/L 9:06 AM CDT Leukocytes 3.4 3.4 - 9.6 03/08/2022 DTL x10(9)/L 9:06 AM CDT Neutrophils 2.53 1.56 - 03/08/2022 DTL 6.45 9:06 AM CDT x10(9)/L Lymphocytes 0.22 (L) 0.95 - 03/08/2022 DTL 3.07 9:06 AM CDT x10(9)/L Monocytes 0.59 0.26 - 03/08/2022 DTL 0.81 9:06 AM CDT x10(9)/L Eosinophils 0.04 0.03 - 03/08/2022 DTL 0.48 9:06 AM CDT x10(9)/L Basophils <0.03 0.01 - 03/08/2022 DTL 0.08 9:06 AM CDT x10(9)/L Specimen Anatomical Collection Method Collection Time Receive d Time (Source) Location / / Volume Laterality Blood (Blood, 03/08/2022 8:20 AM 03/08/20 8:49 Venous) CDT AM CDT Deborah VillaBRiazS. LAB BLOOD ADD-ON Performing Organization Address City/State/ZIP Code Phon e Number [facility] - [address] [place], [place] [address] [employer] [facility] [facility] [place] [address] [facility] [address] documented in this encounter Visit Diagnoses Diagnosis Secondary Malignant Neoplasm Liver (HCC) - Primary Medication Therapy Fpc Not Anticoa gulant Malignant Neoplasm Of Pancreas (HCC) Bacteremia documented in this encounter Administered Medications Inactive Administered Medications - up to 3 most recent administrations Medication Order MAR Action Action Date Dose Rate Site heparin flush 500 Units Given 03/08/2022 8:22 AM CDT 500 Units 500 Units, intra-catheter, As needed, line care, Starting on Mon03/08/22 at 0806, When no infusion to maintain patency: For IVAD accessed, not in use, and/or prior to hospital discharge, flush every 7 days after 0.9% preservative-free NaCL flush. For IVAD NOT accessed or used, flush every 4 weeks after 0.9% preservative-free NaCL flush. sodium chloride 0.9 % injection 10 mL Given 03/08/2022 8:17 AM CDT 10 mL 10 mL, intra-catheter, As needed, line care, Starting on Mon03/08/22 at 0806, When IVAD Accessed and in Use: Flush prior to and following infusion, between multiple consecutive infusions, and prior to blood sampling. sodium chloride 0.9 % injection 20 mL Given 03/08/2022 8:22 AM CDT 20 mL 20 mL, intra-catheter, As needed, line care, Starting on Mon03/08/22 at 0806, When IVAD Accessed and in Use: Flush post blood transfusion or post blood sampling. documented in this encounter Additional Health Concerns Assessment Noted Time PHQ-9 Depression Total Score: 2 10/01/2021 10:34 AM CS T documented as of this encounter Care Teams Sports Development Officer Relationship Specialty Start Date End Date Elsewhere, Pcp PCP - General Family Medicine 08/12/20 documented as of this encounter
--- OUTSIDE RECORDS SUMMARY | 2022-06-18 16:02 | XMS_ITS | Encounter Summary ---
:1965 Author Organization [facility] Address [address] [place] [address] Care Team Providers Name Role Phone Elsewhere, Pcp Primary Care Provider Unavailable Reason for Visit Reason Comments Med Refill Encounter Details Date Type Department Care Team Description 02/08/2022 Refill Department of Palliative Care Ab mata Avendano D.NRiazP., Med Refill in [facility] R.N. [address] [facility] [place] [phone] Social History Tobacco Use Types Packs/Day [...] How often do you attend episcopalian or baptist services? 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 - 02/08/2022 9:55 AM CDT Prescription Refill Request Current Prescription Regimen: Hydromorphone 4 mg tablet; take 2-4 mg every 6 hours as needed Last strength/amount/date filled: 4 mg, #60, 01/08 [place] DATABASE DEVELOPER reviewed Prescription/amount provided today: 4 mg, #60 Prescription will be e-Prescribed to the following pharmacy: [facility] in [place] Last appointment was in person office visit on 01/06 Next palliative appointment is in person office visit on 03/01 Prescription was authorized by Ingrid Obregon CNP documented in this encounter Plan of Treatment Upcoming Encounters Date Type Specialty Care Team Description 06/22/2022 Lab Laboratory Medicine Maria Del Rosario Gomez AP RN, C.N.P., M.S. [address] [place] [place] [phone] (Mj godoy) 06/22/2022 Infusion Oncology Maria Del Rosario Gomez APRN, C.N .P., M.S. [address] [place] [place] [phone] (Mj rk) 06/29/2022 Lab Laboratory Medicine Maria Del Rosario Gomez AP RN, C.N.P., M.S. [address] [place] [place] [phone] (Mj godoy) 06/29/2022 Infusion Oncology Maria Del Rosario Gomez APRN, C.N .P., M.S. [address] [place] [place] [phone] (Mj godoy) documented as of this encounter Visit Diagnoses Not on filedocumented in this encounter Additional Health Concerns Assessment Noted Time PHQ-9 Depression Total Score: 2 10/01/2021 10:34 AM CS T documented as of this encounter Care Teams Automotive Machinist Apprentice Relationship Specialty Start Date End Date Elsewhere, Pcp PCP - General Family Medicine 08/12/20 documented as of this encounter
--- OUTSIDE RECORDS SUMMARY | 2022-06-18 16:02 | XMS_ITS | Encounter Summary ---
:1965 Author Organization [facility] Address [address] [place] [address] Care Team Providers Name Role Phone Elsewhere, Pcp Primary Care Provider Unavailable Encounter Details Date Type Department Care Team Description 03/07/2022 Orders Only Department of Oncology in [place] Tesfaye M .D., [place], [place] Ph.D. [address] [place] [phone] [place], [place] [phone] (Wo rk) Social History Tobacco Use Types [...] How often do you attend mormon or mormonism services? 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 [address] [place] [phone] (Wo rk) 06/22/2022 Infusion Oncology Maria Del Rosario Gomez APRN, C.N .P., M.S. [address] [place] [phone] (Wo rk) 06/29/2022 Lab Laboratory Medicine Maria Del Rosario Gomez AP RN, C.N.P., M.S. [address] [place] [phone] (Wo rk) 06/29/2022 Infusion Oncology Maria Del Rosario Gomez APRN, C.N .P., M.S. [address] [place] [phone] (Wo rk) documented as of this encounter Visit Diagnoses Not on filedocumented in this encounter Additional Health Concerns Assessment Noted Time PHQ-9 Depression Total Score: 2 10/01/2021 10:34 AM CS T documented as of this encounter Care Teams Rules Examiner Relationship Specialty Start Date End Date Elsewhere, Pcp PCP - General Family Medicine 08/12/20 documented as of this encounter
--- OUTSIDE RECORDS SUMMARY | 2022-06-18 16:03 | XMS_ITS | Encounter Summary ---
:1965 Author Organization [facility] Address [address] [place] [address] Care Team Providers Name Role Phone Elsewhere, Pcp Primary Care Provider Unavailable Encounter Details Date Type Department Care Team Description 01/19/2022 Orders Only Department of Oncology Tamara Escobar Medication Therapy Snf Not Anticoa gulant (Primary Dx); in [place], Secondary Rachel gnant Neoplasm Liver (HCC); [place] (Work) Malignant Neoplasm Of Pancre as (HCC) [address] [place] [address] Social History Tobacco Use Types Packs/Day Years [...] er 01/15/2021 How often do you attend confucianism or rastafari services? 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 [address] [place] [address] [phone] (Wo rk) 06/22/2022 Infusion Oncology AndesMaria Del Rosario pierre APRN, C.N .P., M.S. [address] [place] [address] [phone] (Wo rk) 06/29/2022 Lab Laboratory Medicine AndesMaria Del Rosario pierre AP RN, C.N.P., M.S. [address] [place] [address] [phone] (Wo rk) 06/29/2022 Infusion Oncology Maria Del Rosario Gomez APRN, C.N .P., M.S. [address] [place] [address] [phone] (Wo rk) documented as of this encounter Results (ABNORMAL) ALT (Alanine Aminotransferase) (01/19/2022 8:24 AM CDT) [facility] Pin or Peg Method Time Signature Alanine 142 (H) 7 - 55 01/19/2022 DTL Aminotransferase U/L 9:23 AM CDT (ALT), S Specimen Anatomical Collection Method Collection Time Receive d Time (Source) Location / / Volume Laterality Blood (Blood, 01/19/2022 8:24 AM 01/20/20 22 9:06 Venous) CDT AM CDT Deborah Valera LAB BLOOD ADD-ON Performing Organization Address City/State/ZIP Code Phon e Number [facility] - [address] [place] [phone] [facility] [place] [address] [facility] [address] [facility] (ABNORMAL) AST (Aspartate Aminotransferase) (01/19/2022 8:24 AM CDT) Patholo gist Method Time Signature Aspartate 74 (H) 8 - 48 01/19/2022 DTL Aminotransferase U/L 9:24 AM CDT (AST), P Specimen Anatomical Collection Method Collection Time Receive d Time (Source) Location / / Volume Laterality Blood (Blood, 01/19/2022 8:24 AM 01/20/20 22 8:53 Venous) CDT AM CDT Deborah VillaB.S. LAB BLOOD ADD-ON Performing Organization Address City/State/[facility] Code Phon e Number [facility] - [address] [place], [place] [address] [facility] Bilirubin, Total (01/19/2022 8:24 AM CDT) athologist Signature Bilirubin, 0.6 <=1.2 mg/dL 01/19/2022 DTL Total, P 9:24 AM CDT Specimen Anatomical Collection Method Collection Time Receive d Time (Source) Location / / Volume Laterality Blood (Blood, 01/19/2022 8:24 AM 01/20/20 22 8:53 Venous) CDT AM CDT Deborah VillaB.S. LAB BLOOD ADD-ON Performing Organization Address City/[facility] Code Phon e Number [facility] - [address] [place], [place] [address] [place] [id number] [place] [address] [address] [facility] (ABNORMAL) Alkaline Phosphatase (01/19/2022 8:24 AM CDT) athologist Signature Alkaline 222 (H) 40 - 129 01/19/2022 DTL Phosphatase, S U/L 9:23 AM CDT Specimen Anatomical Collection Method Collection Time Receive d Time (Source) Location / / Volume Laterality Blood (Blood, 01/19/2022 8:24 AM 01/20/20 22 9:06 Venous) CDT AM CDT Deborah VillaB.S. LAB BLOOD ADD-ON Performing Organization Address City/State/ZIP Code Phon e Number [facility] - [address] [place], [place] [address] [facility] [place], [place] [phone] [place] [address] [address] [facility] Magnesium (01/19/2022 8:24 AM CDT) P athologist Signature Magnesium, S 2.1 1.7 - 2.3 01/19/2022 DTL mg/dL 9:23 AM CDT Specimen Anatomical Collection Method Collection Time Receive d Time (Source) Location / / Volume Laterality Blood (Blood, 01/19/2022 8:24 AM 01/20/20 22 9:06 Venous) CDT AM CDT Deborah VillaB.S. LAB BLOOD ADD-ON Performing Organization Address City/State/ZIP Code Phon e Number [facility] - [address] [place], [place] [address] [place] [address] [facility] [address] [facility] Phosphorus Inorganic (01/19/2022 8:24 AM CDT) athologist Signature Phosphorus 2.8 2.5 - 4.5 01/19/2022 DTL (Inorganic), S mg/dL 9:23 AM CDT Specimen Anatomical Collection Method Collection Time Receive d Time (Source) Location / / Volume Laterality Blood (Blood, 01/19/2022 8:24 AM 01/20/20 22 9:06 Venous) CDT AM CDT Deborah VillaB.S. LAB BLOOD ADD-ON Performing Organization Address City/State/ZIP Code Phon e Number [facility] - [address] [place], [place] [address] [place] [address] [facility] [address] [facility] Albumin (01/19/2022 8:24 AM CDT) P athologist Signature Albumin, S 3.9 3.5 - 5.0 01/19/2022 DTL g/dL 9:23 AM CDT Specimen Anatomical Collection Method Collection Time Receive d Time (Source) Location / / Volume Laterality Blood (Blood, 01/19/2022 8:24 AM 01/20/20 22 9:06 Venous) CDT AM CDT Deborah VillaB.S. LAB BLOOD ADD-ON Performing Organization Address City/State/ZIP Code Phon e Number [facility] - [address] [place], [place] [address] [facility] [place] [address] [facility] [address] (ABNORMAL) Basic Metabolic Panel (01/19/2022 8:24 AM CDT) P athologist Signature Potassium, P 3.5 (L) 3.6 - 5.2 01/19/2022 DTL mmol/L 9:24 AM CDT Sodium, P 142 135 - 145 01/19/2022 DTL mmol/L 9:24 AM CDT Chloride, P 109 (H) 98 - 107 01/19/2022 DTL mmol/L 9:24 AM CDT Bicarbonate, P 25 22 - 29 01/19/2022 DTL mmol/L 9:24 AM CDT Anion Gap, P 8 7 - 15 01/19/2022 DTL 9:24 AM CDT BUN (Blood Urea 10 8 - 24 01/19/2022 DTL Nitrogen), P mg/dL 9:24 AM CDT Creatinine 0.97 0.74 - 01/19/2022 DTL 1.35 mg/dL 9:24 AM CDT eGFR-Black/Afri >90 >=60 01/19/2022 DTL can Danish mL/min/BSA 9:24 AM CDT Comment: ----ADDITIONAL INFORMATION---- Estimated GFR calculated using the 2009 CKD_EPI creatinine equation. eGFR Non-Black/ 86 >=60 mL/min/BSA 9:24 AM CDT DTL Comment: ----ADDITIONAL INFORMATION---- Estimated GFR calculated using the 2009 CKD_EPI creatinine equation. Calcium, Total, P 9.0 8.6 - 10.0 mg/dL 01/19/2022 9:24 AM CDT DTL Glucose, P 147 (H) 70 - 140 mg/dL 01/19/2022 9:24 AM CDT D TL Specimen Anatomical Collection Method Collection Time Receive d Time (Source) Location / / Volume Laterality Blood (Blood, 01/19/2022 8:24 AM 01/20/20 8:53 Venous) CDT AM CDT Deborah VillaB.S. LAB BLOOD ADD-ON Performing Organization Address City/State/ZIP Code Phon e Number [facility] - [address] [place], [place] [address] [facility] [place] [address] [facility] [address] [facility] (ABNORMAL) CBC with Differential, Blood (01/19/2022 8:24 AM CDT) [facility] Method Time Signature Hemoglobin 10.7 (L) 13.2 - 01/19/2022 DTL 16.6 g/dL 9:10 AM CDT Hematocrit 33.0 (L) 38.3 - 01/19/2022 DTL 48.6 % 9:10 AM CDT Erythrocytes 3.82 (L) 4.35 - 01/19/2022 DTL 5.65 9:10 AM CDT x10(12)/L MCV 86.4 78.2 - 01/19/2022 DTL 97.9 fL 9:10 AM CDT RBC Distrib Width 17.3 (H) 11.8 - 01/19/2022 DTL 14.5 % 9:10 AM CDT Platelet Count 129 (L) 135 - 317 01/19/2022 DTL x10(9)/L 9:10 AM CDT Leukocytes 4.0 3.4 - 9.6 01/19/2022 DTL x10(9)/L 9:10 AM CDT Neutrophils 3.07 1.56 - 01/19/2022 DTL 6.45 9:10 AM CDT x10(9)/L Lymphocytes 0.37 (L) 0.95 - 01/19/2022 DTL 3.07 9:10 AM CDT x10(9)/L Monocytes 0.45 0.26 - 01/19/2022 DTL 0.81 9:10 AM CDT x10(9)/L Eosinophils 0.11 0.03 - 01/19/2022 DTL 0.48 9:10 AM CDT x10(9)/L Basophils <0.03 0.01 - 01/19/2022 DTL 0.08 9:10 AM CDT x10(9)/L Specimen Anatomical Collection Method Collection Time Receive d Time (Source) Location / / Volume Laterality Blood (Blood, 01/19/2022 8:24 AM 01/20/20 22 8:53 Venous) CDT AM CDT Deborah Valera LAB BLOOD ADD-ON Performing Organization Address City/State/ZIP Code Phon e Number [facility] - [address] [place], [place] [address] [facility] [place] [address] [facility] [address] documented in this encounter Visit Diagnoses Diagnosis Medication Therapy 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
--- OUTSIDE RECORDS SUMMARY | 2022-06-18 16:03 | XMS_ITS | Encounter Summary ---
:1965 Author Organization [facility] Address [address] [place] [address] Care Team Providers Name Role Phone Elsewhere, Pcp Primary Care Provider Unavailable Encounter Details Date Type Department Care Team Description 01/18/2022 Orders Only Department of Oncology in [place], [place] GUERO, C.N.P., M.S. [address] [facility] [address] [place] [address] [place], [place] [phone] (Wo rk) Social History Tobacco Use Types [...] How often do you attend congregational or oriental orthodox services? 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 [address] [place] [phone] (Wo rk) 06/22/2022 Infusion Oncology Maria Del Rosario Gomez APRN, C.N .P., M.S. [address] [place] [address] [phone] (Wo rk) 06/29/2022 Lab Laboratory Medicine Maria Del Rosario Gomez AP RN, C.N.P., M.S. [address] [place] [address] [phone] (Wo rk) 06/29/2022 Infusion Oncology Maria Del Rosario Gomez APRN, C.N .P., M.S. [address] [place] [address] [phone] (Wo rk) documented as of this encounter Visit Diagnoses Not on filedocumented in this encounter Additional Health Concerns Assessment Noted Time PHQ-9 Depression Total Score: 2 10/01/2021 10:34 AM CS T documented as of this encounter Care Teams Tube Station Attendant Relationship Specialty Start Date End Date Elsewhere, Pcp PCP - General Family Medicine 08/12/20 documented as of this encounter
--- OUTSIDE RECORDS SUMMARY | 2022-06-18 16:03 | XMS_ITS | Encounter Summary ---
:1965 Author Organization [facility] Address [address] [place] [id number] Care Team Providers Name Role Phone Elsewhere, Pcp Primary Care Provider Unavailable Reason for Visit Episode Based Medications (Routine) - Closed Specialty Diagnoses / Procedures Referred By Contact Refer red To Contact Diagnoses Malignant Neoplasm Of Pancreas (HCC) Secondary Malignant Neoplasm Liver (HCC) Medication Therapy Retirement Not Anticoagulant Jesse [facility] Procedures ID ONDANSETRON HCL INJECTION ID LEUCOVORIN CALCIUM INJECTION ID INJ IRINOTECAN LIPOSOME 1 MG ID FLUOROURACIL INJECTION P.A.-C., M.S. 200 [facility] [address] [place] [id number] Referral ID Status Reason Start Date Expiration Date Visits Requ ested Visits Authorized [id number] Closed 08/27/2021 08/27/2022 36 36 Encounter Details Date Type Department Care Team Description 01/06/2022 Lab Department of Infusion Vladislav Zarco Secondary Malignant Neoplasm Liver (HCC) (Primary Dx); Therapy in Randall Perdomo M.D. Malignant Neoplasm Of Pancreas (HCC); [place] [address] [place] [address] Bacteremia [address] [place] [phone] (Wo rk) Social History Tobacco Use Types [...] er 01/15/2021 How often do you attend methodist or denominational services? 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 [address] [place] [phone] (Mj rk) 06/22/2022 Infusion Oncology Maria Del Rosario Gomez APRN, C.N .P., M.S. [address] [place] [phone] (Wo rk) 06/29/2022 Lab Laboratory Medicine Maria Del Rosario Gomez AP RN, C.N.P., M.S. [address] [place] [address] [phone] (Mj rk) 06/29/2022 Infusion Oncology Maria Del Rosario Gomez APRN, C.N .P., M.S. [address] [place] [phone] (jM rk) documented as of this encounter Procedures Procedure Name Priority Date/Time Associated Comments Diagnosis [facility] [place], B Routine 01/06/2022 7:16 Secondary Re sults for this AM CDT Malignant Neoplasm procedure are in Liver (HCC) the results Malignant Neoplasm section. Of Pancreas (HCC) CBC WITH DIFFERENTIAL, B Routine 01/06/2022 7:15 Secondary Results for this AM CDT Malignant Neoplasm procedure are in Liver (HCC) the results Malignant Neoplasm section. Of Pancreas (HCC) ALANINE AMINOTRANSFERASE Routine 01/06/2022 7:15 Secondary Results for this (ALT), S/P AM CDT Malignant Neoplasm procedure are in Liver (HCC) the results Malignant Neoplasm section. Of Pancreas (HCC) ASPARTATE Routine 01/06/2022 7:15 Secondary Results for this AMINOTRANSFERASE (AST), AM CDT Malignant Neoplas m procedure are in S/P Liver (HCC) the results Malignant Neoplasm section. Of Pancreas (HCC) PHOSPHORUS (INORGANIC), Routine 01/06/2022 7:15 Secondary R esults for this S AM CDT Malignant Neoplasm procedure are in Liver (HCC) the results Malignant Neoplasm section. Of Pancreas (HCC) ALKALINE PHOSPHATASE, Routine 01/06/2022 7:15 Secondary Res ults for this S/P AM CDT Malignant Neoplasm procedure are in Liver (HCC) the results Malignant Neoplasm section. Of Pancreas (HCC) MAGNESIUM, S Routine 01/06/2022 7:15 Secondary Results for this AM CDT Malignant Neoplasm procedure are in Liver (HCC) the results Malignant Neoplasm section. Of Pancreas (HCC) BILIRUBIN, TOT, S/P Routine 01/06/2022 7:15 Secondary Resul ts for this AM CDT Malignant Neoplasm procedure are in Liver (HCC) the results Malignant Neoplasm section. Of Pancreas (HCC) ALBUMIN, S/P Routine 01/06/2022 7:15 Secondary Results for this AM CDT Malignant Neoplasm procedure are in Liver (HCC) the results Malignant Neoplasm section. Of Pancreas (HCC) BASIC METABOLIC PANEL, Routine 01/06/2022 7:15 Secondary Re sults for this S/P AM CDT Malignant Neoplasm procedure are in Liver (HCC) the results Malignant Neoplasm section. Of Pancreas (HCC) documented in this encounter Results Miscellaneous Research, B (01/06/2022 7:16 AM CDT) P athologist Signature Number of 3 01/06/2022 HSS Specimens 7:16 AM CDT Specimen Anatomical Collection Method Collection Time Receive d Time (Source) Location / / Volume Laterality Varies (Blood, 01/06/2022 7:16 AM 022 7:16 Venous) CDT AM CDT Vladislav Zarco M.D. LAB RESEARCH NO RESULT VERENICE MCFADDEN Performing Organization Address City/[facility]/ZIP [facility] Phon e Number [facility] - [address] [place], [place] [address] [facility] [place] [address] [facility] [address] ALT (Alanine Aminotransferase) (01/06/2022 7:15 AM CDT) [facility] RunMyProcess Method Time Signature Alanine 29 7 - 55 01/06/2022 DTL Aminotransferase U/L 8:03 AM CDT (ALT), S Specimen Anatomical Collection Method Collection Time Receive d Time (Source) Location / / Volume Laterality Blood (Blood, 01/06/2022 7:15 AM 01/07/20 22 7:42 Venous) CDT AM CDT Vladislav Zarco M.D. LAB BLOOD ADD-ON Performing Organization Address City/[facility]/ZIP Code Phon e Number [facility] - [address] [place], [place] [address] [place] [address] [place] [address] [facility] [address] AST (Aspartate Aminotransferase) (01/06/2022 7:15 AM CDT) [facility] Method Time Signature Aspartate 23 8 - 48 01/06/2022 DTL Aminotransferase U/L 8:01 AM CDT (AST), S Specimen Anatomical Collection Method Collection Time Receive d Time (Source) Location / / Volume Laterality Blood (Blood, 01/06/2022 7:15 AM 01/07/20 22 7:42 Venous) CDT AM CDT Vladislav Zarco M.D. LAB BLOOD ADD-ON Performing Organization Address City/[facility]/ZIP Code Phon e Number [facility] - [address] [place], [place] [address] [place] [address] [place], [place] [phone] [place] [address] First [facility] Bilirubin, Total (01/06/2022 7:15 AM CDT) P athologist Signature Bilirubin, 0.4 <=1.2 mg/dL 01/06/2022 DTL Total, S 8:01 AM CDT Specimen Anatomical Collection Method Collection Time Receive d Time (Source) Location / / Volume Laterality Blood (Blood, 01/06/2022 7:15 AM 01/07/20 7:42 Venous) CDT AM CDT Vladislav Zarco M.D. LAB BLOOD ADD-ON Performing Organization Address City/State/ZIP Code Phon e Number [facility] - [address] [place], [place] [address] [facility] [place], [place] [phone] [place] [address] (ABNORMAL) Alkaline Phosphatase (01/06/2022 7:15 AM CDT) P athologist Signature Alkaline 131 (H) 40 - 129 01/06/2022 DTL Phosphatase, S U/L 8:01 AM CDT Specimen Anatomical Collection Method Collection Time Receive d Time (Source) Location / / Volume Laterality Blood (Blood, 01/06/2022 7:15 AM 01/07/20 7:42 Venous) CDT AM CDT Vladislav Zarco M.D. LAB BLOOD ADD-ON Performing Organization Address City/State/ZIP Code Phon e Number [facility] - [address] [place], [place] [address] [facility] [place] [address] [facility] [address] Magnesium (01/06/2022 7:15 AM CDT) P athologist Signature Magnesium, S 2.2 1.7 - 2.3 01/06/2022 DTL mg/dL 8:01 AM CDT Specimen Anatomical Collection Method Collection Time Receive d Time (Source) Location / / Volume Laterality Blood (Blood, 01/06/2022 7:15 AM 01/07/20 7:42 Venous) CDT AM CDT Vladislav Zarco M.D. LAB BLOOD ADD-ON Performing Organization Address City/State/ZIP Code Phon e Number [facility] - [address] [place], [place] [address] [facility] [place] [address] [facility] [address] Phosphorus Inorganic (01/06/2022 7:15 AM CDT) athologist Signature Phosphorus 3.2 2.5 - 4.5 01/06/2022 DTL (Inorganic), S mg/dL 8:01 AM CDT Specimen Anatomical Collection Method Collection Time Receive d Time (Source) Location / / Volume Laterality Blood (Blood, 01/06/2022 7:15 AM 01/07/20 7:42 Venous) CDT AM CDT Vladislav Zarco M.D. LAB BLOOD ADD-ON Performing Organization Address City/[facility] Phon e Number [facility] - 200 [place] [address] Laboratories-[address] Albumin (01/06/2022 7:15 AM CDT) athologist Signature Albumin, S 3.8 3.5 - 5.0 01/06/2022 DTL g/dL 8:01 AM CDT Specimen Anatomical Collection Method Collection Time Receive d Time (Source) Location / / Volume Laterality Blood (Blood, 01/06/2022 7:15 AM 01/07/20 7:42 Venous) CDT AM CDT Vladislav Zarco M.D. LAB BLOOD ADD-ON Performing Organization Address City/[facility] Phon e Number [facility] - 200 [place] [address] [place] [phone] [place] [address] (ABNORMAL) Basic Metabolic Panel (01/06/2022 7:15 AM CDT) athologist Signature Potassium, S 4.2 3.6 - 5.2 01/06/2022 DTL mmol/L 8:01 AM CDT Sodium, S 143 135 - 145 01/06/2022 DTL mmol/L 8:01 AM CDT Chloride, S 109 (H) 98 - 107 01/06/2022 DTL mmol/L 8:01 AM CDT Bicarbonate, S 25 22 - 29 01/06/2022 DTL mmol/L 8:01 AM CDT Anion Gap 9 7 - 15 01/06/2022 DTL 8:01 AM CDT BUN (Blood Urea 11 8 - 24 01/06/2022 DTL Nitrogen), S mg/dL 8:01 AM CDT Creatinine 0.94 0.74 - 01/06/2022 DTL 1.35 mg/dL 8:01 AM CDT eGFR-Non 90 >=60 01/06/2022 DTL Black/ mL/min/BSA 8:01 AM CDT Cambodian Comment: ----ADDITIONAL INFORMATION---- Estimated GFR calculated using the 2009 CKD_EPI creatinine equation. eGFR-Black/ >90 >=60 mL/min/BSA 2021 8:01 AM CDT DTL Comment: ----ADDITIONAL INFORMATION---- Estimated GFR calculated using the 2009 CKD_EPI creatinine equation. Calcium, Total, S 8.9 8.6 - 10.0 mg/dL 01/06/2022 8:01 AM CDT DTL Glucose, S 96 70 - 140 mg/dL 01/06/2022 8:01 AM CDT D TL Specimen Anatomical Collection Method Collection Time Receive d Time (Source) Location / / Volume Laterality Blood (Blood, 01/06/2022 7:15 AM 01/07/20 7:42 Venous) CDT AM CDT Vladislav Zarco M.D. LAB BLOOD ADD-ON Performing Organization Address City/State/ZIP Code Phon e Number [facility] - [address] [place] [phone] [facility] [place] [address] Laboratories-[facility] 200 [facility] (ABNORMAL) CBC with Differential, Blood (01/06/2022 7:15 AM CDT) [facility] Method Time Signature Hemoglobin 10.3 (L) 13.2 - 01/06/2022 DTL 16.6 g/dL 7:42 AM CDT Hematocrit 32.1 (L) 38.3 - 01/06/2022 DTL 48.6 % 7:42 AM CDT Erythrocytes 3.72 (L) 4.35 - 01/06/2022 DTL 5.65 7:42 AM CDT x10(12)/L MCV 86.3 78.2 - 01/06/2022 DTL 97.9 fL 7:42 AM CDT RBC Distrib Width 16.0 (H) 11.8 - 01/06/2022 DTL 14.5 % 7:42 AM CDT Platelet Count 160 135 - 317 01/06/2022 DTL x10(9)/L 7:42 AM CDT Leukocytes 3.2 (L) 3.4 - 9.6 01/06/2022 DTL x10(9)/L 7:42 AM CDT Neutrophils 2.31 1.56 - 01/06/2022 DTL 6.45 7:42 AM CDT x10(9)/L Lymphocytes 0.39 (L) 0.95 - 01/06/2022 DTL 3.07 7:42 AM CDT x10(9)/L Monocytes 0.42 0.26 - 01/06/2022 DTL 0.81 7:42 AM CDT x10(9)/L Eosinophils 0.07 0.03 - 01/06/2022 DTL 0.48 7:42 AM CDT x10(9)/L Basophils <0.03 0.01 - 01/06/2022 DTL 0.08 7:42 AM CDT x10(9)/L Specimen Anatomical Collection Method Collection Time Receive d Time (Source) Location / / Volume Laterality Blood (Blood, 01/06/2022 7:15 AM 01/07/20 22 7:29 Venous) CDT AM CDT Vladislav Zarco M.D. LAB BLOOD ADD-ON Performing Organization Address City/State/ZIP Code Phon e Number [facility] - [address] [place] [phone] [facility] [place] [address] Laboratories-[facility] 200 [facility] documented in this encounter Visit Diagnoses Diagnosis Secondary Malignant Neoplasm Liver (HCC) - Primary Malignant Neoplasm Of Pancreas (HCC) Bacteremia documented in this encounter Administered Medications Inactive Administered Medications - up to 3 most recent administrations Medication Order MAR Action Action Date Dose Rate Site heparin flush 500 Units Given 01/06/2022 7:18 AM CDT 500 Units 500 Units, intra-catheter, As needed, line care, Starting on Sandra 01/06/22 at 0706, When no infusion to maintain patency: For IVAD accessed, not in use, and/or prior to hospital discharge, flush every 7 days after 0.9% preservative-free NaCL flush. For IVAD NOT accessed or used, flush every 4 weeks after 0.9% preservative-free NaCL flush. sodium chloride 0.9 % injection 10 mL Given 01/06/2022 7:18 AM CDT 10 mL 10 mL, intra-catheter, As needed, line care, Starting on Sandra 01/06/22 at 0706, When IVAD Accessed and in Use: Flush prior to and following infusion, between multiple consecutive infusions, and prior to blood sampling. sodium chloride 0.9 % injection 20 mL Given 01/06/2022 7:18 AM CDT 20 mL 20 mL, intra-catheter, As needed, line care, Starting on Sandra 01/06/22 at 0706, When IVAD Accessed and in Use: Flush post blood transfusion or post blood sampling. documented in this encounter Additional Health Concerns Assessment Noted Time PHQ-9 Depression Total Score: 2 10/01/2021 10:34 AM CS T documented as of this encounter Care Teams Tire Groover Relationship Specialty Start Date End Date Elsewhere, Pcp PCP - General Family Medicine 08/12/20 documented as of this encounter
--- OUTSIDE RECORDS SUMMARY | 2022-06-18 16:03 | XMS_ITS | Encounter Summary ---
:1965 Author Organization [facility] Address [address] [place] [address] Care Team Providers Name Role Phone Elsewhere, Pcp Primary Care Provider Unavailable Reason for Referral Outpatient (Routine) - Closed Specialty Diagnoses / Procedures Referred By Contact Refer red To Contact Diagnoses Malignant Neoplasm Of Pancreas (HCC) Tashi Bueno M.D., Ph.D. [facility] [place] [address] Referral ID Status Reason Start Date Expiration Date Visits Requ ested Visits Authorized [id number] Closed 01/19/2022 01/19/2023 1 1 Encounter Details Date Type Department Care Team Description 01/19/2022 Orders Only Department of Oncology Tashi Bueno Mal ignant Neoplasm Of in Chanelle Perdomo, Ph.D. Pancreas (HCC) [facility] [place] (Primary Dx) [address] [place], [place] [phone] Social History Tobacco Use Types Packs/Day Years [...] er 01/15/2021 How often do you attend yarsanism or jainism services? 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 [address] [place] [phone] (Mj godoy) 06/22/2022 Infusion Oncology Maria Del Rosario Gomez APRN, C.N .P., M.S. [address] [place] [phone] (Mj godoy) 06/29/2022 Lab Laboratory Medicine Maria Del Rosario Gomez AP RN, C.N.P., M.S. [address] [place] [address] [phone] (Mj godoy) 06/29/2022 Infusion Oncology Maria Del Rosario Gomez APRN, C.N .P., M.S. [address] [place] [address] [phone] (Mj godoy) Scheduled Orders Name Type Priority Associated Diagnoses Order S chedule ONC Pump Disconnect Procedures Routine Malignant Neoplasm Of 1 Occurrences starting Pancreas (HCC) 01/19/2022 un til 04/21/2023 documented as of this encounter Visit Diagnoses Diagnosis Malignant Neoplasm Of Pancreas (HCC) - P rimary documented in this encounter Additional Health Concerns Infection Onset Date Last Indicated Resolved Time COVID19 Pending 01/19/2022 01/19/2022 01/19/2022 5:46 PM CDT Assessment Noted Time PHQ-9 Depression Total Score: 2 10/01/2021 10:34 AM CS T documented as of this encounter Care Teams Bench Manager Relationship Specialty Start Date End Date Elsewhere, Pcp PCP - General Family Medicine 08/12/20 documented as of this encounter
--- OUTSIDE RECORDS SUMMARY | 2022-06-18 16:03 | XMS_ITS | Encounter Summary ---
:1965 Author Organization [facility] Address [address] [place] [address] Care Team Providers Name Role Phone Elsewhere, Pcp Primary Care Provider Unavailable Encounter Details Date Type Department Care Team Description 01/06/2022 Orders Only Department of Oncology in Alexandrea Caputo [place], [place] [address] [place] [phone] Social History Tobacco Use Types Packs/Day [...] er 01/15/2021 How often do you attend scientology or amish services? 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 [address] [place] [phone] (Mj rk) 06/22/2022 Infusion Oncology Maria Del Rosario Gomez APRN, C.N .P., M.S. [address] [place] [phone] (Mj rk) 06/29/2022 Lab Laboratory Medicine Maria Del Rosario Gomez AP RN, C.N.P., M.S. [address] [place] [phone] (Mj godoy) 06/29/2022 Infusion Oncology Maria Del Rosario Gomez APRN, C.N .P., M.S. [address] [place] [phone] (Mj godoy) documented as of this encounter Visit Diagnoses Not on filedocumented in this encounter Additional Health Concerns Infection Onset Date Last Indicated Resolved Time COVID19 Pending 01/19/2022 01/19/2022 01/19/2022 5:46 PM CDT Assessment Noted Time PHQ-9 Depression Total Score: 2 10/01/2021 10:34 AM CS T documented as of this encounter Care Teams Geomorphologist Relationship Specialty Start Date End Date Elsewhere, Pcp PCP - General Family Medicine 08/12/20 documented as of this encounter
--- OUTSIDE RECORDS SUMMARY | 2022-06-18 16:03 | XMS_ITS | Encounter Summary ---
:1965 Author Organization [facility] Address [address] [place] [id number] Care Team Providers Name Role Phone Elsewhere, Pcp Primary Care Provider Unavailable Encounter Details Date Type Department Care Team Description 01/24/2022 Anesthesia Event Division of Manjinder Givens APRN, SPOT MAN [address] [place] [phone] [facility] [address] [place] [phone] [place], [place] [address] [place] [phone] Anesthesia Record Procedure Summary Procedure Name Responsible Anesthesiologist Anesthesia Start Ti me Anesthesia Stop Time ERCP Manjinder Givens, GUERO, SPOT MAN 01/24/22 1628 1713 Events Date Time Event Comment 01/24/2022 1450 1628 An Start Machine/Equipmen t Checked Infection Precautions Foll owed Procedure/Site Verified NPO Sta tus Verified Supine Standard ASA Mon itors Applied 1632 An Induction 1635 An Intubation 1636 Turnover to Proceduralist 1642 Proc Start 1653 Turnover to ANE Staff 1653 Proc Fin 1706 Airway Removal Criteria Met 1706 Extubation/Airway Removed 1709 an stop data 1713 An End I completed my h andoff to the receiving staff during [facility] we 1. Identified the patient 2. Ident ified the responsible provider 3. Revi ewed the pertinent medical history 4. Discussed the surgical course 5. Review ed intra-op anesthesia management and i ssues during anesthesia 6. Set expectati ons for post-procedure period 7. Allowe d opportunity for questions and ac knowledgement of understanding. Name Total fentanyl injection 50 mcg/mL 100 mcg propofol 10 mg/mL 150 mg propofol 10 mg/mL infusion 248.49 mg succinylcholine 20 mg/mL injection 120 mg ondansetron 4 mg/2 mL injection 4 mg levoFLOXacin 750 mg IVPB 750 mg Lactated Ringers Free Drip 300 mL Agents No agents on file. Blood No blood administrations on file. Lines, Drains, and Airways Type Details Placement Removal Implanted Port Single 11/05/20; 1225; Permanent 11/05/20 1225 by Lumen (tunneled, implanted); Raymond Escobedo, RRiazNRiaz Yes; Yes; Yes; Yes; Alcohol, Chlorhexidine (Preferred); Yes; Cap, Gloves, Gown, Large drape, Mask (Clinician), Mask (All others in room); N/A; Non-valved; Right; Chest; Power injectable; Securement dressing, Sutured; Dr. Wolf Puncture 08/23/21; 1657; No; 08/23/21 165 by Abdomen; Right; Multiple Yasmeen Triplett, puncture sites from liver M.S.N., R.N. biopsy ETT Placement Date: 01/24/22; 01/24/221634 by 01/24 170 by Placement Time: 1634 Manjinder Givens, GUERO, Manjinder Givens, (created via procedure SPOT MAN JESUS JACK documentation); Mask Ventilation: Easy mask; Type: Standard ETT; Single Lumen Tube Size: 7.5 mm; Cuffed: Yes; Location: Oral; Grade View: Grade 1; Insertion Attempts: 1; Placement Verification: Bilateral breath sounds, Positive ETCO2, Symmetrical chest wall movement; Removal Date: 01/24/22; Removal Time: 1705 documented in this encounter Social History Tobacco [...] How often do you attend confucianism or temple services? 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 Responsible Provider: Manjinder Givens APRN, CRNA Anesthesia Type: general ASA Status: 3 Anesthesia Type: general Last vitals Vitals Value Taken Time BP Temp Pulse 95 01/24/221712 Resp 21 01/24/221712 SpO2 97 % 01/24/221712 Vitals shown include unvalidated device data. Please reference Vitals flowsheet for most recent vital signs. Anesthesia Post Evaluation Patient Disposition: dismissal Cardiovascular status: hemodynamics (HR & BP) acceptable Respiratory status: patent airway with spontaneous effort Temperature: normothermic Oxygen requirements: room air Level of consciousness: awake Pain score: pain adequately controlled and/or at baseline Post Op nausea/vomiting: none Hydration status: euvolemic Anesthesia Procedure Notes - Manjinder Givens APRN, CRNA - 01/24/2022 4:49 PM CDT Associated Order(s): Airway Airway Date/Time: 01/24/2022 4:35 PM Performed by: Manjinder Givens APRN, CRNA Authorized by: Manjinder Givens APRN, CRNA Care team members present 1. Manjinder Givens APRN, CRNA Patient location during procedure: OR / Procedure Area PROCEDURE DETAILS: Mask difficulty assessment: easy mask Final airway type: video laryngoscope Laryngeal Manipulation: no Final best view of glottic structures - Cormack/Lehane Score: grade 1 ETT location: oral VL device: glide scope [place] scope blade size: 4 Adult tube size: 7.5 Adult ETT distance at teeth/gum: 24 Oral tube type: standard ETT Cuffed: yes Number of attempt to successful placement: 1 Airway confirmation: bilateral breath sounds, positive ETCO2 and bilateral chest rise Other previous techniques attempted: none PRE PROCEDURE DETAILS: Pre evaluation for airway management: procedure Urgency: elective Preop assessment of probable difficulty: no difficulty anticipated Preoxygenation: bag valve mask SEDATION / ANESTHESIA Anesthesia method: anesthesia POST PROCEDURE DETAILS: Procedure outcome: successful Airway event: no complications Anesthesia Preprocedure Evaluation - Fady Coelho III, M.D. 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 Present illnessand pre-op diagnosis were confirmed. The planned surgery / procedure was verified with the patient /legal guardian. The patient's general health condition remains unchanged RELEVANT COMORBID CONDITIONS GENETICS (+) Hypoalbuminemia GI (+) Gastroesophageal Reflux Disease NOS HEME (+) Anemia ONC (+) Malignant Neoplasm Of Pancreas (HCC) (+) Secondary Malignant Neoplasm Liver (HCC) Nervous (+) Abdominal Pain (+) Headache Unspecified (+) Neuropathy Peripheral (+) Pain Back (+) Pain Cancer Associated (+) Pain Neuropathic Circulatory (+) Hypotension (Resolved) (+) Murmur Heart (+) Portal Vein Thrombosis (+) Thrombosis Splenic Vein Acute Other (+) Immunodeficiency Due To Drugs (HCC) (+) Malnutrition Severe Protein-Calorie (HCC) OBJECTIVE PHYSICAL EXAMINATION Airway (HEENT) Mallampati: II TM Distance: >3 FB Neck ROM: Full Mouth Opening: >3 cm Cardiovascular Rhythm: Regular Rate: Normal Functional Capacity: >4 METS Pulmonary Pulmonary Assessment: Non labored General / Constitutional Constitutional Assessment: Normal General State of Health:: calm Neurological Neurologic Assessment:??alert and alert and oriented x 3 Dental Dental Assessment: dentition intact ASSESSMENT / PLAN ANESTHESIA PLAN ASA: 3 Anesthesia Plan: general Patient seen and allergies reviewed; anesthesia plan and risks discussed directly with patient / legal guardian, or through an facilities operations technician; patient evaluated and approved for anesthesia / sedation Risks/Benefits/Alternatives of Blood transfusion discussed with patient / legal guardian, including an opportunity to ask questions and/or decline some or all transfusion therapies. The patient / legalguardian consented to the use of all blood products, as deemed medically necessary Approval to Proceed: approved for anesthesia documented in this encounter Plan of Treatment Upcoming Encounters Date Type Specialty Care Team Description 06/22/2022 Lab Laboratory Medicine Maria Del Rosario Gomez AP RN, C.N.P., M.S. [address] [place] [phone] (Mj godoy) 06/22/2022 Infusion Oncology Maria Del Rosario Gomez APRN, C.N .P., M.S. [address] [place] [phone] (Mj godoy) 06/29/2022 Lab Laboratory Medicine Maria Del Rosario Gomez AP RN, C.N.P., M.S. [address] [place] [phone] (Mj godoy) 06/29/2022 Infusion Oncology Maria Del Rosario Gomez APRN, C.N .P., M.S. [address] [place], [place] [phone] (Wo rk) documented as of this encounter Procedures Procedure Name Priority Date/Time Associated Comments Diagnosis LDA ANE ENDOTRACHEAL Routine 01/24/2022 4:35 PM R esults for this AIRWAY CDT procedure are i n the results section. documented in this encounter Results LDA ANE ENDOTRACHEAL AIRWAY (01/24/2022 4:35 PM CDT) Narrative Manjinder Givens APRN, CRNA - 01/24/2022 4 :35 PM CDT Manjinder Givens APRN, CRNA ? 01/24/2022 ??4:50 PM Airway Date/Time: 01/24/2022 4:35 PM Performed by: Manjinder Givens APRN, CRNA Authorized by: Manjinder Givens APRN, CRNA Care team members present 1. Manjinder Givens APRN, CRNA Patient location during procedure: OR / Procedure Area PROCEDURE DETAILS: Mask difficulty assessment: easy mask Final airway type: video laryngoscope Laryngeal Manipulation: no ?? Final best view of glottic structures - Cormack/Lehane Score: grade 1 ETT location: oral VL device: glide scope [place] scope blade size: 4 Adult tube size: 7.5 Adult ETT distance at teeth/gum: 24 Oral tube type: standard ETT Cuffed: yes Number of attempt to successful placemen t: 1 Airway confirmation: bilateral breath so unds, positive ETCO2 and bilateral chest rise Other previous techniques attempted: non e PRE PROCEDURE DETAILS: Pre evaluation for airway management: pr ocedure Urgency: elective Preop assessment of probable difficulty: no difficulty anticipated Preoxygenation: bag valve mask SEDATION / ANESTHESIA Anesthesia method: anesthesia POST PROCEDURE DETAILS: ? Procedure outcome: successful ?? Airway event: no complications Manjinder Givens APRN, CRNA ANESTHESIA ORDERABLES documented in this encounter Visit Diagnoses Not on filedocumented in this encounter Administered Medications Inactive Administered Medications - up to 3 most recent administrations Medication Order MAR Action Action Date Dose Rate Site fentaNYL injection (SUBLIMAZE) Given 01/24/2022 4:32 PM CDT 100 mcg intravenous, As needed, Starting on Mon01/24/22 at 1632, Anesthesia Intra-op lactated ringers New Bag 01/24/2022 4:32 PM CDT intravenous, Continuous Infusion: Per Instructions PRN, Starting on Mon01/24/22 at 1632, Anesthesia Intra-op levoFLOXacin in D5W IVPB (LEVAQUIN) Given 01/24/2022 4:38 PM CDT 750 mg intravenous, Administer over 90 Minutes, As needed, Starting on Mon01/24/22 at 1638, Anesthesia Intra-op ondansetron (PF) injection (ZOFRAN) Given 01/24/2022 5:06 PM CDT 4 mg intravenous, As needed, Starting on Mon01/24/22 at 1706, Anesthesia Intra-op propofol 10 mg/mL infusion New Bag 01/24/2022 4:32 150 mcg/kg/min 67.77 mL/hr (DIPRIVAN) PM CDT intravenous, Continuous Infusion: Per Instructions PRN, Starting on Mon01/24/22 at 1632, Anesthesia Intra-op propofoL injection (DIPRIVAN) Given 01/24/2022 4:32 PM CDT 150 mg intravenous, As needed, Starting on Mon01/24/22 at 1632, Anesthesia Intra-op succinylcholine (PF) injection (ANECTINE ) Given 01/24/2022 4:32 PM CDT 120 mg intravenous, As needed, Starting on Mon01/24/22 at 1632, Anesthesia Intra-op documented in this encounter Additional Health Concerns Assessment Noted Time PHQ-9 Depression Total Score: 2 10/01/2021 10:34 AM CS T documented as of this encounter Care Teams Insulator Helper Relationship Specialty Start Date End Date Elsewhere, Pcp PCP - General Family Medicine 08/12/20 documented as of this encounter
--- OUTSIDE RECORDS SUMMARY | 2022-06-18 16:03 | XMS_ITS | Encounter Summary ---
:1965 Author Organization [facility] Address [address] [place] [address] Care Team Providers Name Role Phone Elsewhere, Pcp Primary Care Provider Unavailable Reason for Referral MRI/CAT/PET Scan (Routine) - Closed Specialty Diagnoses / Procedures Referred By Contact Refer red To Contact Radiology Diagnoses Malignant Neoplasm Of Pancreas (HCC) Vladislav Zaroc M.D. [facility] Procedures CT Abdomen Pelvis with IV Contrast UT CT ABD&PELVIS W CNTRST [address] [place] [address] Referral ID Status Reason Start Date Expiration Date Visits Requ ested Visits Authorized [id number] Closed 01/27/2022 01/27/2023 1 1 MRI/CAT/PET Scan (Routine) - Closed Specialty Diagnoses / Procedures Referred By Contact Refer red To Contact Radiology Diagnoses Malignant Neoplasm Of Pancreas (HCC) Vladislav Zarco M.D. [facility] Procedures CT Chest with IV Contrast UT CT THORAX W CNTRST UT 3D WO IND WORKSTATION [address] [place] [address] Referral ID Status Reason Start Date Expiration Date Visits Requ ested Visits Authorized [id number] Closed 01/27/2022 01/27/2023 1 1 Outpatient (Routine) Specialty Diagnoses / Procedures Referred By Contact Refer red To Contact Oncology [facility] [address] [place], [place] [phone] Referral ID Status Reason Start Date Expiration Date Visits Requ ested Visits Authorized Outpatient (Routine) Specialty Diagnoses / Procedures Referred By Contact Refer red To Contact Oncology [facility] [address] [place] [phone] Referral ID Status Reason Start Date Expiration Date Visits Requ ested Visits Authorized Outpatient (Routine) Specialty Diagnoses / Procedures Referred By Contact Refer red To Contact Oncology [facility] [address] [place], [place] [address] Referral ID Status Reason Start Date Expiration Date Visits Requ ested Visits Authorized Encounter Details Date Type Department Care Team Description 01/27/2022 Orders Only Department of Oncology Tamara Escobar 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 [address] [place] [phone] (Mj godoy) 06/22/2022 Infusion Oncology Maria Del Rosario Gomez APRN, C.N .P., M.S. [address] [place] [phone] (Mj godoy) 06/29/2022 Lab Laboratory Medicine Maria Del Rosario Gomez AP RN, C.N.P., M.S. [address] [place] [phone] (Mj godoy) 06/29/2022 Infusion Oncology Maria Del Rosario Gomez APRN, C.N .P., M.S. 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 Malignant Neoplasm Of Pancreas (HCC) Oncology office Outpatient Referral Routine Secondary Malignan t Expected: visit (clinic) Neoplasm Liver 05/04/2022, General; GIH (HCC) Expires: Pancreatic Medication Therapy 3 Senior Care Not Anticoagulant Malignant Neoplasm Of Pancreas (HCC) documented as of this encounter Results (ABNORMAL) ALT (Alanine Aminotransferase) (04/19/2022 8:43 AM CDT) [facility] gist Method Time Signature Alanine 61 (H) 7 - 55 04/19/2022 DTL Aminotransferase U/L 10:47 AM CDT (ALT), S Specimen Anatomical Collection Method Collection Time Receive d Time (Source) Location / / Volume Laterality Blood (Blood, 04/19/2022 8:43 AM 04/19/20 22 Venous) CDT 10:09 AM CDT Vladislav Zarco M.D. LAB BLOOD ADD-ON Performing Organization Address City/[facility] Phon e Number [facility] - [address] [place] [address] [facility] AST (Aspartate Aminotransferase) (04/19/2022 8:43 AM CDT) [facility] Method Time Signature Aspartate 22 8 - 48 04/19/2022 METH Aminotransferase U/L 9:53 AM CDT (AST), P Specimen Anatomical Collection Method Collection Time Receive d Time (Source) Location / / Volume Laterality Blood (Blood, 04/19/2022 8:43 AM 04/19/20 22 9:26 Venous) CDT AM CDT Vladislav Zarco M.D. LAB BLOOD ADD-ON Performing Organization Address City/State/[facility] Phon e Number [facility] - [address] METH [place] [address] [facility] Bilirubin, Total (04/19/2022 8:43 AM CDT) P athologist Signature Bilirubin, 0.6 <=1.2 mg/dL 04/19/2022 METH Total, P 9:53 AM CDT Specimen Anatomical Collection Method Collection Time Receive d Time (Source) Location / / Volume Laterality Blood (Blood, 04/19/2022 8:43 AM 04/19/20 22 9:26 Venous) CDT AM CDT Vladislav Zarco M.D. LAB BLOOD ADD-ON Performing Organization Address City/[facility]/ZIP [facility] Phon e Number [facility] - 200 [place] [address] [address] [facility] [address] (ABNORMAL) Alkaline Phosphatase (04/19/2022 8:43 AM CDT) P athologist Signature Alkaline 330 (H) 40 - 129 04/19/2022 DTL Phosphatase, S U/L 10:47 AM CDT Specimen Anatomical Collection Method Collection Time Receive d Time (Source) Location / / Volume Laterality Blood (Blood, 04/19/2022 8:43 AM 04/19/20 22 Venous) CDT 10:09 AM CDT Vladislav Zarco M.D. LAB BLOOD ADD-ON Performing Organization Address City/[facility]/ZIP Code Phon e Number [facility] - [address] [place] [address] 05 [facility] [place] [address] Magnesium (04/19/2022 8:43 AM CDT) P athologist Signature Magnesium, S 2.1 1.7 - 2.3 04/19/2022 DTL mg/dL 10:47 AM CDT Specimen Anatomical Collection Method Collection Time Receive d Time (Source) Location / / Volume Laterality Blood (Blood, 04/19/2022 8:43 AM 04/19/20 22 Venous) CDT 10:09 AM CDT Vladislav Zarco M.D. LAB BLOOD ADD-ON Performing Organization Address City/State/ZIP Code Phon e Number [facility] - [address] [place] [address] 05 [facility] [address] Phosphorus Inorganic (04/19/2022 8:43 AM CDT) P athologist Signature Phosphorus 3.7 2.5 - 4.5 04/19/2022 DTL (Inorganic), S mg/dL 10:47 AM CDT Specimen Anatomical Collection Method Collection Time Receive d Time (Source) Location / / Volume Laterality Blood (Blood, 04/19/2022 8:43 AM 04/19/20 22 Venous) CDT 10:09 AM CDT Vladislav Zarco M.D. LAB BLOOD ADD-ON Performing Organization Address City/[facility] Phon e Number [facility] - [address] [address] Laboratories-[address] Albumin (04/19/2022 8:43 AM CDT) athologist Signature Albumin, S 4.0 3.5 - 5.0 04/19/2022 DTL g/dL 10:47 AM CDT Specimen Anatomical Collection Method Collection Time Receive d Time (Source) Location / / Volume Laterality Blood (Blood, 04/19/2022 8:43 AM 04/19/20 Venous) CDT 10:09 AM CDT Vladislav Zarco M.D. LAB BLOOD ADD-ON Performing Organization Address City/[facility] Phon e Number [facility] - [address] [address] [address] (ABNORMAL) Basic Metabolic Panel (04/19/2022 8:43 AM CDT) athologist Signature Potassium, P 3.9 3.6 - [...] CDT eGFR-Black/Afric >90 >=60 04/19/2022 METH an Samoan mL/min/BSA 9:53 AM CDT Comment: ----ADDITIONAL INFORMATION---- [...] 140 mg/dL 04/19/2022 9:53 AM CDT M ETH Specimen Anatomical Collection Method Collection Time Receive d Time (Source) Location / / Volume Laterality Blood (Blood, 04/19/2022 8:43 AM 04/19/20 9:26 Venous) CDT AM CDT Vladislav Zarco M.D. LAB BLOOD ADD-ON Performing Organization Address City/State/ZIP Code Phon e Number [facility] - [address] [place] [address] [facility] [address] Laboratories-[facility] 200 [facility] (ABNORMAL) CBC with Differential, Blood (04/19/2022 8:43 AM CDT) [facility] Method Time Signature Hemoglobin 10.0 (L) 13.2 [...] M.D. LAB BLOOD ADD-ON Performing Organization Address City/State/[facility] Code Phon e Number [facility] - [address] [place] [address] Miscellaneous Research, B (04/06/2022 8:31 AM CDT) athologist Signature Number of 3 04/06/2022 [facility] Specimens 8:31 AM CDT Specimen Anatomical Collection Method Collection Time Receive d Time (Source) Location / / Volume Laterality Varies (Blood, 04/06/2022 8:31 AM 022 8:31 Venous) CDT AM CDT Vladislav Zarco M.D. LAB RESEARCH NO RESULT ROUTI NG Performing Organization Address City/State/[facility] Code Phon e Number [facility] - 200 [place], [place] [address] [facility] [address] ALT (Alanine Aminotransferase) (04/06/2022 8:31 AM CDT) Patholo gist Method Time Signature Alanine 55 7 - 55 04/06/2022 DTL Aminotransferase U/L 9:23 AM CDT (ALT), S Specimen Anatomical Collection Method Collection Time Receive d Time (Source) Location / / Volume Laterality Blood (Blood, 04/06/2022 8:31 AM 04/06/20 22 9:06 Venous) CDT AM CDT Vladislav Zarco M.D. LAB BLOOD ADD-ON Performing Organization Address City/State/ZIP Code Phon e Number [facility] - [address] [place], [place] [address] [facility] DTL [address] AST (Aspartate Aminotransferase) (04/06/2022 8:31 AM CDT) Patholo gist Method Time Signature Aspartate 26 8 - 48 04/06/2022 METH Aminotransferase U/L 9:37 AM CDT (AST), P Specimen Anatomical Collection Method Collection Time Receive d Time (Source) Location / / Volume Laterality Blood (Blood, 04/06/2022 8:31 AM 04/06/20 22 8:47 Venous) CDT AM CDT Vladislav Zarco M.D. LAB BLOOD ADD-ON Performing Organization Address City/State/ZIP Code Phon e Number [facility] - [address] [place], [place] [address] [facility] [address] [facility] [address] Bilirubin, Total (04/06/2022 8:31 AM CDT) P athologist Signature Bilirubin, 0.8 <=1.2 mg/dL 04/06/2022 METH Total, P 9:37 AM CDT Specimen Anatomical Collection Method Collection Time Receive d Time (Source) Location / / Volume Laterality Blood (Blood, 04/06/2022 8:31 AM 04/06/20 22 8:47 Venous) CDT AM CDT Vladsilav Zarco M.D. LAB BLOOD ADD-ON Performing Organization Address City/State/ZIP Code Phon e Number [facility] - [address] [place], [place] [address] [facility] [address] [facility] [address] (ABNORMAL) Alkaline Phosphatase (04/06/2022 8:31 AM CDT) P athologist Signature Alkaline 339 (H) 40 - 129 04/06/2022 DTL Phosphatase, S U/L 9:23 AM CDT Specimen Anatomical Collection Method Collection Time Receive d Time (Source) Location / / Volume Laterality Blood (Blood, 04/06/2022 8:31 AM 04/06/20 22 9:06 Venous) CDT AM CDT Vladislav Zarco M.D. LAB BLOOD ADD-ON Performing Organization Address City/State/ZIP Code Phon e Number [facility] - 200 [place], [place] [address] [place] [address] Magnesium (04/06/2022 8:31 AM CDT) athologist Signature Magnesium, S 1.9 1.7 - 2.3 04/06/2022 DTL mg/dL 9:23 AM CDT Specimen Anatomical Collection Method Collection Time Receive d Time (Source) Location / / Volume Laterality Blood (Blood, 04/06/2022 8:31 AM 04/06/20 22 9:06 Venous) CDT AM CDT Vladislav Zarco M.D. LAB BLOOD ADD-ON Performing Organization Address City/[facility]/ZIP Code Phon e Number [facility] - 200 [place], [place] [address] [place] [address] Phosphorus Inorganic (04/06/2022 8:31 AM CDT) athologist Signature Phosphorus 3.5 2.5 - 4.5 04/06/2022 DTL (Inorganic), S mg/dL 9:23 AM CDT Specimen Anatomical Collection Method Collection Time Receive d Time (Source) Location / / Volume Laterality Blood (Blood, 04/06/2022 8:31 AM 04/06/20 22 9:06 Venous) CDT AM CDT Vladislav Zarco M.D. LAB BLOOD ADD-ON Performing Organization Address City/State/ZIP Code Phon e Number [facility] - 200 [place], [place] [address] [place] [id number] Laboratories-[facility] 200 [address] [facility] Albumin (04/06/2022 8:31 AM CDT) athologist Signature Albumin, S 3.6 3.5 - 5.0 04/06/2022 DT g/dL 9:23 AM CDT Specimen Anatomical Collection Method Collection Time Receive d Time (Source) Location / / Volume Laterality Blood (Blood, 04/06/2022 8:31 AM 04/06/20 9:06 Venous) CDT AM CDT Vladislav Zarco M.D. LAB BLOOD ADD-ON Performing Organization Address City/State/ZIP Code Phon e Number [facility] - [address] [place] [address] 05 [place] [address] (ABNORMAL) Basic Metabolic Panel (04/06/2022 8:31 AM [...] CDT eGFR-Black/Afri >90 >=60 04/06/2022 METH can Samoan mL/min/BSA 9:37 AM CDT Comment: ----ADDITIONAL INFORMATION---- [...] Organization Address City/State/ZIP Code Phon e Number [facility] - [address] [place], [place] [address] [facility] [address] Laboratories-[facility] [address] [facility] (ABNORMAL) CBC with Differential, Blood (04/06/2022 8:31 AM CDT) [facility] gist Method Time Signature Hemoglobin 9.6 (L) 13.2 [...] M.D. LAB BLOOD ADD-ON Performing Organization Address City/[facility] Phon e Number [facility] - [address] ALT (Alanine Aminotransferase) (03/21/2022 7:47 AM CDT) [facility] [employer] Method Time Signature Alanine 35 7 - 55 03/21/2022 DTL Aminotransferase U/L 10:16 AM CDT (ALT), S Specimen Anatomical Collection Method Collection Time Receive d Time (Source) Location / / Volume Laterality Blood (Blood, 03/21/2022 7:47 AM 03/21/20 8:10 Venous) CDT AM CDT Vladislav Zarco M.D. LAB BLOOD ADD-ON Performing Organization Address City/State/[facility] Phon e Number [facility] - [address] AST (Aspartate Aminotransferase) (03/21/2022 7:47 AM CDT) [employer] Method Time Signature Aspartate 36 8 - 48 03/21/2022 METH Aminotransferase U/L 8:22 AM CDT (AST), P Specimen Anatomical Collection Method Collection Time Receive d Time (Source) Location / / Volume Laterality Blood (Blood, 03/21/2022 7:47 AM 03/21/20 22 7:53 Venous) CDT AM CDT Vladislav Zarco M.D. LAB BLOOD ADD-ON Performing Organization Address City/[facility]/ZIP [facility] Phon e Number [facility] - [address] METH [address] 200 [facility] Bilirubin, Total (03/21/2022 7:47 AM CDT) P athologist Signature Bilirubin, 0.4 <=1.2 mg/dL 03/21/2022 METH Total, P 8:22 AM CDT Specimen Anatomical Collection Method Collection Time Receive d Time (Source) Location / / Volume Laterality Blood (Blood, 03/21/2022 7:47 AM 03/21/20 7:53 Venous) CDT AM CDT Vladislav Zarco M.D. LAB BLOOD ADD-ON Performing Organization Address [facility] Phon e Number [facility] - 200 [place] [address] 05 [facility] [place] [address] (ABNORMAL) Alkaline Phosphatase (03/21/2022 7:47 AM CDT) athologist Signature Alkaline 251 (H) 40 - 129 03/21/2022 DTL Phosphatase, S U/L 10:16 AM CDT Specimen Anatomical Collection Method Collection Time Receive d Time (Source) Location / / Volume Laterality Blood (Blood, 03/21/2022 7:47 AM 03/21/20 8:10 Venous) CDT AM CDT Vladislav Zarco M.D. LAB BLOOD ADD-ON Performing Organization Address City/State/ZIP [facility] Phon e Number [facility] - 200 [place] [address] [facility] DTL [address] Magnesium (03/21/2022 7:47 AM CDT) athologist Signature Magnesium, S 2.2 1.7 - 2.3 03/21/2022 DTL mg/dL 10:16 AM CDT Specimen Anatomical Collection Method Collection Time Receive d Time (Source) Location / / Volume Laterality Blood (Blood, 03/21/2022 7:47 AM 03/21/20 22 8:10 Venous) CDT AM CDT Vladislav Zarco M.D. LAB BLOOD ADD-ON Performing Organization Address City/State/ZIP Code Phon e Number [facility] - [address] [place], [place] [address] [place] [address] [address] [facility] Phosphorus Inorganic (03/21/2022 7:47 AM CDT) athologist Signature Phosphorus 3.7 2.5 - 4.5 03/21/2022 DTL (Inorganic), S mg/dL 10:16 AM CDT Specimen Anatomical Collection Method Collection Time Receive d Time (Source) Location / / Volume Laterality Blood (Blood, 03/21/2022 7:47 AM 03/21/20 22 8:10 Venous) CDT AM CDT Vladislav Zarco M.D. LAB BLOOD ADD-ON Performing Organization Address City/[facility]/ZIP Code Phon e Number [facility] - [address] [place] [address] [facility] [address] [facility] Albumin (03/21/2022 7:47 AM CDT) athologist Signature Albumin, S 3.6 3.5 - 5.0 03/21/2022 DTL g/dL 10:16 AM CDT Specimen Anatomical Collection Method Collection Time Receive d Time (Source) Location / / Volume Laterality Blood (Blood, 03/21/2022 7:47 AM 03/21/20 22 8:10 Venous) CDT AM CDT Vladislav Zarco M.D. LAB BLOOD ADD-ON Performing Organization Address City/State/ZIP Code Phon e Number [facility] - [address] (ABNORMAL) Basic Metabolic Panel (03/21/2022 7:47 AM CDT) P athologist Signature Potassium, P 4.0 3.6 - [...] CDT eGFR-Black/Afric >90 >=60 03/21/2022 METH an Samoan mL/min/BSA 8:22 AM CDT Comment: ----ADDITIONAL INFORMATION---- [...] Organization Address City/State/ZIP Code Phon e Number [facility] - [address] [place], [place] [address] [facility] [place] [address] Laboratories-[facility] [address] (ABNORMAL) CBC with Differential, Blood (03/21/2022 7:47 AM CDT) [facility] Method Time Signature Hemoglobin 11.0 (L) 13.2 [...] Organization Address City/State/ZIP Code Phon e Number [facility] - 200 [place], [place] [address] [facility] [place] [address] Laboratories-[facility] [address] Abdomen Pelvis with IV Contrast (03/08/2022 [...] bronchiolitis. Consider drug reaction or atypical infection. Vladislav Zarco M.D. IMG CT PROCEDURES Miscellaneous Research, B (03/08/2022 8:20 AM CDT) P athologist Signature Number of 3 03/08/2022 [facility] Specimens 8:20 AM CDT Specimen Anatomical Collection Method Collection Time Receive d Time (Source) Location / / Volume Laterality Varies (Blood, 03/08/2022 8:20 AM 022 8:20 Venous) CDT AM CDT Vladislav Zarco M.D. 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
--- OUTSIDE RECORDS SUMMARY | 2022-06-18 16:03 | XMS_ITS | Encounter Summary ---
:1965 Author Organization [facility] Address [address] [place] [address] Care Team Providers Name Role Phone Elsewhere, Pcp Primary Care Provider Unavailable Reason for Visit Outpatient (Routine) - Closed Specialty Diagnoses / Procedures Referred By Contact Refer red To Contact Diagnoses Malignant Neoplasm Of Pancreas (HCC) Tashi Bueno M.D., Ph.D. [facility] [place] [address] Referral ID Status Reason Start Date Expiration Date Visits Requ ested Visits Authorized [id number] Closed 01/19/2022 01/19/2023 1 1 Encounter Details Date Type Department Care Team Description 01/19/2022 Infusion Department of Oncology Tashi Bueno Mal ignant Neoplasm Of in [facility] elke Roca, Ph.D. Pancreas (HCC) [address] [place] [id number] [place] [address] [phone] (Wo rk) Social History Tobacco Use Types [...] How often do you attend jew or denominational services? 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 [address] [place] [phone] (Mj rk) 06/22/2022 Infusion Oncology Maria Del Rosario Gomez APRN, C.N .P., M.S. [address] [place] [phone] (Wo rk) 06/29/2022 Lab Laboratory Medicine Maria Del Rosario Gomez AP RN, C.N.P., M.S. [address] [place] [phone] (Wo rk) 06/29/2022 Infusion Oncology Maria Del Rosario Gomez APRN, C.N .P., M.S. [address] [place] [phone] (Mj rk) documented as of this encounter Visit Diagnoses Diagnosis Malignant Neoplasm Of Pancreas (HCC) documented in this encounter Additional Health Concerns Infection Onset Date Last Indicated Resolved Time COVID19 Pending 01/19/2022 01/19/2022 01/19/2022 5:46 PM CDT Assessment Noted Time PHQ-9 Depression Total Score: 2 10/01/2021 10:34 AM CS T documented as of this encounter Care Teams Box Bender Relationship Specialty Start Date End Date Elsewhere, Pcp PCP - General Family Medicine 08/12/20 documented as of this encounter
--- OUTSIDE RECORDS SUMMARY | 2022-06-18 16:03 | XMS_ITS | Encounter Summary ---
:1965 Author Organization [facility] Address [address] [place] [phone] Care Team Providers Name Role Phone Elsewhere, Pcp Primary Care Provider Unavailable Encounter Details Date Type Department Care Team Description 01/19/2022 Orders Only Department of Oncology Tashi Bueno Mal ignant Neoplasm Of in Chanelle Perdomo, Ph.D. Pancreas (HCC) [facility] mati Garciaton (Primary Dx) [address] [place] [address] 3 [phone] Social History Tobacco Use Types Packs/Day Years [...] How often do you attend alevism or christian services? 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 [address] [place] [address] [phone] (Wo rk) 06/22/2022 Infusion Oncology Maria Del Rosario Gomez APRN, C.N .P., M.S. [address] [place] [address] [phone] (Wo rk) 06/29/2022 Lab Laboratory Medicine Maria Del Rosario Gomez AP RN, C.N.P., M.S. [address] [place] [address] [phone] (Wo rk) 06/29/2022 Infusion Oncology Maria Del Rosario Gomez APRN, C.N .P., M.S. [address] [place] [address] [phone] (Wo rk) documented as of this encounter Visit Diagnoses Diagnosis Malignant Neoplasm Of Pancreas (HCC) - P rimary documented in this encounter Additional Health Concerns Infection Onset Date Last Indicated Resolved Time COVID19 Pending 01/19/2022 01/19/2022 01/19/2022 5:46 PM CDT Assessment Noted Time PHQ-9 Depression Total Score: 2 10/01/2021 10:34 AM CS T documented as of this encounter Care Teams Organ Pipe Maker Metal Relationship Specialty Start Date End Date Elsewhere, Pcp PCP - General Family Medicine 08/12/20 documented as of this encounter
--- OUTSIDE RECORDS SUMMARY | 2022-06-18 16:03 | XMS_ITS | Encounter Summary ---
:1965 Author Organization [facility] Address [address] [place] [id number] Care Team Providers Name Role Phone Elsewhere, Pcp Primary Care Provider Unavailable Reason for Visit Episode Based Medications (Routine) - Closed Specialty Diagnoses / Procedures Referred By Contact Refer red To Contact Diagnoses Malignant Neoplasm Of Pancreas (HCC) Secondary Malignant Neoplasm Liver (HCC) Medication Therapy Retirement Not Anticoagulant Jesse Perkins Rst On[facility] Rogo Procedures CO ONDANSETRON HCL INJECTION CO LEUCOVORIN CALCIUM INJECTION CO INJ IRINOTECAN LIPOSOME 1 MG CO FLUOROURACIL INJECTION P.A.-C., M.S. [address] [facility] [address] [place] [phone] Referral ID Status Reason Start Date Expiration Date Visits Requ ested Visits Authorized [id number] Closed 08/27/2021 08/27/2022 36 36 Encounter Details Date Type Department Care Team Description 01/25/2022 Office Visit Department of Carolee, Malignant Neop lasm Of Pancreas (HCC) (Primary Dx); Oncology in Vladislav Pereira M.D. Secondary Malignant Neoplasm Liver (HCC) ; [place], [place] [address] [facility] Medication Therapy Retirement Not Anticoa gulant [address] [place] [phone] Social History Tobacco Use Types Packs/Day Years [...] er 01/15/2021 How often do you attend episcopal or anabaptist services? 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 - 01/25/2022 2:50 PM CDT SUBJECTIVE PRIMARY CARE PHYSICIAN ELSEWHERE, PCP Patient Care Team: Adrian Mills M.D. as External Primary Care Physician (Family Medicine) LOCAL ONCOLOGIST No care steam service inspector to display PRIMARY ORANGE ONCOLOGIST Deborah Murray M.B.B.S. Maria Del Rosario Gomez APRN, C.N.P., M.S. CHIEF COMPLAINT / REASON FOR VISIT Adam Campbell is a 56 y.o. male who presents for evaluation of metastatic pancreatic cancer. He is on a clinical trial with nal-Iri + onvansertib and is doing very well. He had a recent hold of his therapy for next week because of a planned ERCP due to LFT elevation. Of note there was no new stricture found and no instrumentation was done. 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 Goal: Curative Planned Treatment Start Date: 01/25/2021 01/25/2021 - 03/01/2021 Chemotherapy Gemcitabine ( with Radiation ) Start Date: 01/25/2021 08/13/2021 Genetic Testing and Tumor Genotyping [facility] pancreas panel negative 08/18/2021 - Research Study Participant Research Study: A Study to Analyze Onvansertib Treatment in Patients with Metastatic Pancreatic Ductal Adenocarcinoma ([id number]) Treatment Protocol: [facility] CRDF-001 ( Onvansertib (Days 1-5) / Fluorouracil / Leucovorin / Nanoliposomal Irinotecan ) 08/27/2021 - 11/11/2021 Research Study Participant Research Study: A Study to Analyze Onvansertib Treatment in Patients with Metastatic Pancreatic Ductal Adenocarcinoma ([id number]) Treatment Protocol: [facility] CRDF-001 ( Onvansertib (Days 1-10) / Fluorouracil / Leucovorin / Nanoliposomal Irinotecan ) ONC General HPI The following portions of the patient's history were reviewed and updated as appropriate: allergies,current medications, medical history and problem list. Rate your distress: 0 (no distress) REVIEW OF SYSTEMS REVIEW OF SYSTEMS See research note OBJECTIVE BP 105/68 (BP Location: Left arm, Patient Position: Sitting, Cuff Size: Regular) Pulse 75 Temp (!) 35.8 ??C (Tympanic) Resp 16 Ht 176.4 cm Wt 76.8 kg SpO2 98% BMI 24.68 kg/m?? 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 Will resume treatments tomorrow. PATIENT EDUCATION Ready to learn, no apparent learning barriers were identified; learning preferences include listening. Explained diagnosis and treatment plan; patient expressed understanding of the content. ADMINISTRATIVE BILLING I personally spent 35 minutes in care of the patient today. Time includes both non face to face and face to face patient care. documented in this encounter Miscellaneous Notes Addendum Note - Coreen Escobar - 01/25/2022 2:50 PM CDT Addended by: COREEN ESCOBAR on: 01/26/2022 08:27 AM Modules accepted: Orders documented in this encounter Plan of Treatment Upcoming Encounters Date Type Specialty Care Team Description 06/22/2022 Lab Laboratory Medicine Maria Del Rosario Gomez AP RN, C.N.P., M.S. [address] [place] [address] [phone] ( rk) 06/22/2022 Infusion Oncology Man[place]Maria Del Rosario pierre APRN, C.N .P., M.S. [address] [place] [address] [phone] (Wo rk) 06/29/2022 Lab Laboratory Medicine Maria Del Rosario Gomez AP RN, C.N.P., M.S. [address] [place] [address] [phone] (Mj rk) 06/29/2022 Infusion Oncology ManheimMaria Del Rosario pierre APRN, C.N .P., M.S. [address] [place] [address] [phone] (Wo rk) documented as of this encounter Visit Diagnoses Diagnosis Malignant Neoplasm Of Pancreas (HCC) - P rimary Secondary Malignant Neoplasm Liver (HCC) Medication Therapy Retirement Not Anticoa gulant documented in this encounter Additional Health Concerns Assessment Noted Time PHQ-9 Depression Total Score: 2 10/01/2021 10:34 AM CS T documented as of this encounter Care Teams Running Instructor Relationship Specialty Start Date End Date Elsewhere, Pcp PCP - General Family Medicine 08/12/20 documented as of this encounter
--- OUTSIDE RECORDS SUMMARY | 2022-06-18 16:03 | XMS_ITS | Encounter Summary ---
:1965 Author Organization [facility] Address [address] [place] [address] Care Team Providers Name Role Phone Elsewhere, Pcp Primary Care Provider Unavailable Encounter Details Date Type Department Care Team Description 01/18/2022 Clinical Communication Department of Oncology Lore Mendez M.D. in [place], [place] [address] [place] [address] Social History Tobacco Use Types Packs/Day Years [...] er 01/15/2021 How often do you attend jehovah's witness or gnosticism services? 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 - 01/19/2022 10:03 AM CDT Visit with Maria Del Rosario on 01/19 Telephone Encounter - Vy Parry R.N. - 01/18/2022 11:09 AM CDT Per Intake Assessment - local ED provider spoke with Dr. Shaw regarding plan of care. I will try calling Mr. Campbell tomorrow to touch base. No notes in CE. Telephone Encounter - Libby Mendez M.D. - 01/18/2022 1:29 AM CDT As the fellow solutions sales consultant, I received a call from the patient regarding fevers. Patient reports that he has been experiencing chills all day, which persisted and woke him from sleep. He just checked his temperature 5 minutes ago and it was 102.4 F. In addition to the fever, he also endorses having some diarrhea. Otherwise, he denies any shortness of breath, chest pain, abdominal pain, or dysuria. I advised patient to present to the nearest ED for evaluation of a possible infectious etiology. Patient is in agreement with the plan and all questions were answered. documented in this encounter Plan of Treatment Upcoming Encounters Date Type Specialty Care Team Description 06/22/2022 Lab Laboratory Medicine Maria Del Rosario Gomez AP RN, C.N.P., M.S. [address] [place] [address] [phone] (Mj godoy) 06/22/2022 Infusion Oncology Maria Del Rosario Gomez APRN, C.N .P., M.S. [address] [place], [place] [phone] (Mj godoy) 06/29/2022 Lab Laboratory Medicine HartMaria Del Rosario pierre AP RN, C.N.P., M.S. [address] [place], [place] [phone] (Mj rk) 06/29/2022 Infusion Oncology Maria Del Rosario Gomez APRN, Remy.N .Pamela., M.S. [address] [place], [place] [phone] (Mj godoy) documented as of this encounter Visit Diagnoses Not on filedocumented in this encounter Additional Health Concerns Assessment Noted Time PHQ-9 Depression Total Score: 2 10/01/2021 10:34 AM CS T documented as of this encounter Care Teams Aerial Photographer Relationship Specialty Start Date End Date Elsewhere, Pcp PCP - General Family Medicine 08/12/20 documented as of this encounter
--- OUTSIDE RECORDS SUMMARY | 2022-06-18 16:03 | XMS_ITS | Encounter Summary ---
:1965 Author Organization [facility] Address [address] [place] [address] Care Team Providers Name Role Phone Elsewhere, Pcp Primary Care Provider Unavailable Reason for Referral Outpatient (Routine) - Closed Specialty Diagnoses / Procedures Referred By Contact Refer red To Contact Diagnoses Secondary Malignant Neoplasm Liver (HCC) Medication Therapy Clinical Education Specialist Not Anticoagulant Malignant Neoplasm Of Pancreas (HCC) [facility] Procedures FL Fluoro Less Than 1 Hour C.N.P., M.S. 200 [place] [address] Referral ID Status Reason Start Date Expiration Date Visits Requ ested Visits Authorized [id number] Closed 01/24/2022 01/24/2023 1 1 Reason for Visit Outpatient (Routine) - Closed Specialty Diagnoses / Procedures Referred By Contact Refer red To Contact Diagnoses Secondary Malignant Neoplasm Liver (HCC) Medication Therapy Clinical Education Specialist Not Anticoagulant Malignant Neoplasm Of Pancreas (HCC) Maria Del Rosario Gomez APRN, [facility] Procedures FL Fluoro Less Than 1 Hour C.N.P., M.S. [address] [place] [phone] Referral ID Status Reason Start Date Expiration Date Visits Requ ested Visits Authorized [id number] Closed 01/24/2022 01/24/2023 1 1 Encounter Details Date Type Department Care Team Description 01/24/2022 Hospital Encounter Department of [facility], Maria Del Rosario bernard Malignant Neoplasm Liver (HCC); Radiology, Hernan Sanchez APRN, Medication Therapy Care Home Not Anticoagulant; Building, in C.N.PRiaz M.S. Malignant Neoplasm Of Pancreas (HCC) [place], [place] 200 [facility] 200 [place] [phone] Social History Tobacco Use Types Packs/Day Years [...] How often do you attend synagogue or buddhism services? 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 levoFLOXacin (LEVAQUIN) Take 1 tablet (500 3 tablet 0 01/0901/27/2022 500 mg tablet mg total) by mouth daily for 3 days. Starting Monday AM Creon 24,000-76,000 TAKE 2 CAPSULES BY 240 capsule 3 022 04/11/2022 -120,000 unit capsule MOUTH WITH MEALS AND 1 TO 2 CAPSULES WITH SNACKS gabapentin (NEURONTIN) TAKE 2 CAPSULES(600 60 capsule 1 12/1002/21/2022 300 mg capsule MG) BY MOUTH AT BEDTIME HYDROmorphone Take 0.5-1 tablets 60 tablet 0 01/06/2022 (DILAUDID) 4 mg (2-4 mg total) by [...] before breakfast. documented as of this encounter Plan of Treatment Upcoming Encounters Date Type Specialty Care Team Description 06/22/2022 Lab Laboratory Medicine Maria Del Rosario Gomez AP RN, C.N.P., M.S. [address] [place] [address] [phone] (Mj godoy) 06/22/2022 Infusion Oncology Maria Del Rosario Gomez APRN, Tanner Padilla., M.S. [address] [place] [address] [phone] (Mj godoy) 06/29/2022 Lab Laboratory Medicine Maria Del Rosario Gomez AP RN, C.N.Pamela., M.S. [address] [place] [address] [phone] (Mj godoy) 06/29/2022 Infusion Oncology Maria Del Rosario Gomez APRN, C.N .P., M.S. [address] [place] [address] [phone] (Mj godoy) documented as of this encounter Procedures Procedure Name Priority Date/Time Associated Comments Diagnosis FL FLUORO LESS RAD - Routine 01/24/2022 4:58 Secondary Results f or this THAN 1 HOUR (most inpatients PM CDT Malignant procedure a re in and all Neoplasm Liver the results outpatients) (HCC) section. Medication Therapy Clinical Education Specialist Not Anticoagulan t Malignant Neoplasm Of Pancreas (HCC) documented in this encounter Results FL Fluoro Less Than 1 Hour (01/24/2022 4:58 PM CDT) Specimen (Source) Anatomical Location Collection Method / Collectio n Time Received Time / Laterality Volume Narrative ERCP LOS RST - 01/24/2022 4:59 PM CDT This exam does not require a radiologist review or interpretation. Please refer to the patient's medical record on this date for clinical details. Maria Del Rosario Gomez APRN, C.N.P., M.S. IMG FLUOROSCOPY OK OCEDURES Performing Organization Address City/State/ZIP Code Phon e Number ERCP LOS RST documented in this encounter Visit Diagnoses Diagnosis Secondary Malignant Neoplasm Liver (HCC) Medication Therapy Care Home Not Anticoa gulant Malignant Neoplasm Of Pancreas (HCC) documented in this encounter Additional Health Concerns Assessment Noted Time PHQ-9 Depression Total Score: 2 10/01/2021 10:34 AM CS T documented as of this encounter Care Teams Healthcare Business Analyst Relationship Specialty Start Date End Date Elsewhere, Pcp PCP - General Family Medicine 08/12/20 documented as of this encounter
--- OUTSIDE RECORDS SUMMARY | 2022-06-18 16:03 | XMS_ITS | Encounter Summary ---
:1965 Author Organization [facility] Address [address] [place] [address] Care Team Providers Name Role Phone Elsewhere, Pcp Primary Care Provider Unavailable Reason for Visit Episode Based Medications (Routine) - Closed Specialty Diagnoses / Procedures Referred By Contact Refer red To Contact Diagnoses Malignant Neoplasm Of Pancreas (HCC) Secondary Malignant Neoplasm Liver (HCC) Medication Therapy Half-Way Not Anticoagulant Jesse Perkins Rst Onc Rogo Procedures HI ONDANSETRON HCL INJECTION HI LEUCOVORIN CALCIUM INJECTION HI INJ IRINOTECAN LIPOSOME 1 MG HI FLUOROURACIL INJECTION P.A.-C., M.S. [address] [facility] [address] [place] [phone] Referral ID Status Reason Start Date Expiration Date Visits Requ ested Visits Authorized [id number] Closed 08/27/2021 08/27/2022 36 36 Encounter Details Date Type Department Care Team Description 01/26/2022 Infusion Department of Oncology Vladislav Zarco Secondary Malignant Neoplasm Liver (HCC) (Primary Dx); in [facility] elke Pereira M.D. Medication Therapy Half-Way Not Anticoa gulant; [address] [facility] [address] [facility] Malignant Neoplasm Of Pancreas (HCC); [place], [place] Bacteremia [phone] (Wo rk) Social History Tobacco Use Types [...] er 01/15/2021 How often do you attend pentecostal or voodoo services? 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 [address] [place] [address] [phone] (Mj godoy) 06/22/2022 Infusion Oncology Maria Del Rosario Gomez APRN, C.N .P., M.S. [address] [place] [address] [phone] (Mj godoy) 06/29/2022 Lab Laboratory Medicine Maria Del Rosario Gomez AP RN, C.N.P., M.S. [address] [place], [place] [phone] (Mj godoy) 06/29/2022 Infusion Oncology Maria Del Rosario Gomez APRN, C.N .P., M.S. [address] [place], [place] [phone] (Mj godoy) documented as of this encounter Visit Diagnoses Diagnosis Secondary Malignant Neoplasm Liver (HCC) - Primary Medication Therapy Half-Way Not Anticoa gulant Malignant Neoplasm Of Pancreas (HCC) Bacteremia documented in this encounter Administered Medications Inactive Administered Medications - up to 3 most recent administrations Medication Order MAR Action Action Date Dose Rate Site dexAMETHasone injection 8 mg Given 01/26/2022 8:15 AM CDT 8 mg (DECADRON) 8 mg, intravenous, Once, On Mon01/26/22 at 0815, For 1 dose fluorouraciL 5,000 mg in NaCl 0.9% Given 01/26/2022 11:11 AM CDT 5,000 mg 5 mL/hr 230 mL IVPB (ADRUCIL) 5,000 mg (rounded from 4,752 mg = 2,400 mg/m2 ? 1.98 m2 Order-specific BSA), intravenous, at 5 mL/hr, Administer over 46 Hours, over 46 hours, First dose on Mon01/26/22 at 1015, For 1 dose, Continuous infusion over 46 hours immediately following Leucovorin. Dose reflects TOTAL CALCULATED DOSE to be administered via continuous infusion over the specified length of treatment. irinotecan liposomaL 86 mg in D5W New Bag 01/26/2022 8:52 AM C DT 86 mg 347 mL/hr 520 mL IVPB (ONIVYDE) 86 mg (rounded from 85.14 mg = 43 mg/m2 ? 1.98 m2 Order-specific BSA), intravenous, at 347 mL/hr, Administer over 90 Minutes, Once, On Mon01/26/22 at 0815, For 1 dose, Administer immediately following the administration of oral onvansertib. Protect from light. No in-line filter. leucovorin 800 mg in NaCl 0.9% 315 New Bag 01/26/2022 10:35 AM CDT 800 mg 630 mL/hr mL IVPB 800 mg (rounded from 792 mg = 400 mg/m2 ? 1.98 m2 Order-specific BSA), intravenous, at 630 mL/hr, Administer over 30 Minutes, Once, On Mon01/26/22 at 0945, For 1 dose, Follows irinotecan liposome. ondansetron (PF) injection 8 mg (ZOFRAN) Given 01/26/2022 8:17 AM CDT 8 mg 8 mg, intravenous, Once, On Mon01/26/22 at 0815, For 1 dose Research IRB [id number] onvansertib capsule 10 Given 8:50 AM CDT 10 mg mg (PCM-075) 10 mg, oral, Once, On Mon01/26/22 at 0815, For 1 dose, This is the 5 [...] prior to liposomal irinotecan Infusion. Research IRB [id number] onvansertib capsule 20 Given 8:50 AM CDT 20 mg mg (PCM-075) 20 mg, oral, Once, On Mon01/26/22 at 0815, For 1 dose, This is the 20 [...] chloride 0.9 % injection 10 mL Given 01/26/2022 11:08 AM CDT 10 mL 10 mL, intra-catheter, As needed, line care, Starting on Mon01/26/22 at 0806, When IVAD Accessed and in Use: Flush prior to and following infusion, between multiple consecutive infusions, and prior to blood sampling. Given 01/26/2022 8:14 AM CDT 10 mL documented in this encounter Additional Health Concerns Assessment Noted Time PHQ-9 Depression Total Score: 2 10/01/2021 10:34 AM CS T documented as of this encounter Care Teams Student Officer Relationship Specialty Start Date End Date Elsewhere, Pcp PCP - General Family Medicine 08/12/20 documented as of this encounter
--- OUTSIDE RECORDS SUMMARY | 2022-06-18 16:03 | XMS_ITS | Encounter Summary ---
:1965 Author Organization [facility] Address [address] [place] [address] Care Team Providers Name Role Phone Elsewhere, Pcp Primary Care Provider Unavailable Reason for Referral Outpatient (Routine) - Closed Specialty Diagnoses / Procedures Referred By Contact Refer red To Contact Diagnoses Secondary Malignant Neoplasm Liver (HCC) Medication Therapy Mcc Not Anticoagulant Malignant Neoplasm Of Pancreas (HCC) [facility] Procedures ERCP C.N.P., M.S. [address] [place] [address] Referral ID Status Reason Start Date Expiration Date Visits Requ ested Visits Authorized [id number] Closed 01/19/2022 01/19/2023 1 1 Reason for Visit Outpatient (Routine) - Closed Specialty Diagnoses / Procedures Referred By Contact Refer red To Contact Diagnoses Secondary Malignant Neoplasm Liver (HCC) Medication Therapy Darkroom Technician Not Anticoagulant Malignant Neoplasm Of Pancreas (HCC) Maria Del Rosario Gomez APRN, [facility] Procedures ERCP C.N.P., M.S. [address] [place], [place] [address] Referral ID Status Reason Start Date Expiration Date Visits Requ ested Visits Authorized [id number] Closed 01/19/2022 01/19/2023 1 1 Encounter Details Date Type Department Care Team Description 01/24/2022 Hospital Encounter Division of Patricia, Secondary Malignant Neoplasm Liver (HCC); Gastroenterology in Maria Del Rosario L, Medicati on Therapy Darkroom Technician Not Anticoagulant; [place], [place] Pratik JACKNRiazP., Malignant Neoplasm Of Pancre as (HCC) [address] [place] [address] [address] [facility] [phone] [place] [address] Social History Tobacco Use Types Packs/Day Years [...] er 01/15/2021 How often do you attend sikhism or zoroastrianism services? 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 About Your ERCP, (Endoscopic Retrograde Cholangiopancreatography) ([place]) documented in this encounter Medications at Time [...] Gomez AP RN, C.N.P., M.S. [address] [place] [address] [phone] (Wo rk) 06/22/2022 [facility] C.N .P., M.S. [address] [place] [address] [phone] (Wo rk) 06/29/2022 [facility] AP RN, C.N.P., M.S. [address] [place] [address] [phone] (Wo rk) 06/29/2022 [facility]fusion [facility] APRN, C.N .Pamela., M.S. [address] [place] [address] [phone] (Wo rk) documented as of this encounter Procedures Procedure Name Priority Date/Time Associated Diagnosis Comme nts ERCP Routine 01/24/2022 4:07 PM Secondary Malignant Re sults for this CDT Neoplasm Liver ( HCC) procedure are in the Medication Therapy results s ection. Darkroom Technician Not Anticoagulant Malignant Neoplasm Of Pancreas (HCC) ERCP Routine 01/24/2022 4:07 PM Secondary Malignant CDT Neoplasm Liver ( HCC) Medication Therapy Darkroom Technician Not Anticoagulant Malignant Neoplasm Of Pancreas (HCC) documented in this encounter Results ERCP (01/24/2022 4:07 PM CDT) Specimen (Source) Anatomical Collection Method Collection Time Re ceived Time Location / / Volume Laterality 01/24/2022 4:07 PM CDT Impressions [facility] [place] - 01/24/2022 7:15 PM CDT Post-op Diagnoses: ? 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 Presumably tumor related. ? - Multiple coaxial metal stents i n the distal bile duct ? - The biliary tree was swept sherie r of extensive biliary sludge but no ? strictures or obstruction identif ied. Narrative [facility] [place] - 01/24/2022 7:15 PM CDT [facility] 2 GI Patient Name: Adam Campbell Date of : 1965 Age: 56 Gender: Male Procedure Date: 01/24/2022 Procedure: ? ERCP Providers: ? Roderick Milan MD Referring Provider: ?Maria Del Rosario LauraRiaz mccurdy Pre-op Diagnoses: ?Elevated li alvina enzymes, Malignant tumor of the head ? of pancreas Recommendation: ? - Levaquin (levofloxacin) 500 mg PO daily for 3 days. ? - Observe patient's clinical cour se. If moderately cholestatic liver ? enzymes remain elevated I suspect they are not related to ductal or ? stent obstruction. ? - The pateint was alerted to mild duodenal compromise and encouraged to ? employ a mechanical soft diet. ? - Potential future need for duode nal stenting vs. EUS guided ? gastrojejunostomy. this would req iure consultation with endoscopist in ? advance given the history of necr otizing pancreatitis and indwelling ? transgastric pigtail stents. Findings: ? Several metal biliary stents were visible on the apprentice stylist film. The upper ? GI tract was traversed under dire ct vision without detailed examination. ? The upper GI tract was traversed under direct vision without detailed ? examination. There was no food or fluid accumulation in the stomach, ? which was well decompressed. An a cquired extrinsic moderate stenosis was ? found in the second portion of th e duodenum, presumably as a result of ? underlying pancreatic disease/annemarie or. This was traversed with advancement ? of a guiding wire and occlusion b alloon to the third portion of the ? duodenum. Dilation was not perfor med. Two previously placed metal stents ? were seen at the major papilla, o ne within the other. The innermost ? stent is covered and hence it did not exhibit ingrowth in any area. A ? significant amount of sludge was present in the lower half. The biliary ? tree was swept with a 12 mm ballo on starting at the bifurcation, ? clearing the great majority of st icky adherent sludge from the stent. ? Occlusoin cholangiography showed the stent to be widely patent, with a ? slight luminal narrowing just abo ve the stent where the duct deviates ? laterally in the upper half. This was not obstructing. Occlsuion ? cholangiography of hte intrahepat ic ducts was essentially normal, with ? more prominent ducts on the left than on the right, but no obstruction ? appreciated.. Procedural Details: ? The patient was seen, [...] saturations wer e monitored continuously. The ? Duodenoscope was introduced throu gh the mouth, and advanced to the ? duodenum and used to inject contr ast into the bile duct. The ERCP was ? accomplished without difficulty. The patient tolerated the procedure ? well. Complications: ? No immedia te complications. Estimated Blood Loss: ?Estimated blo od loss: none. Attending Participation: I personally pe rformed the entire procedure. Roderick Milan MD 01/24/2022 7:15:07 PM This report has been signed electronical ly. Number of Addenda: 0 Note Initiated On: 01/24/2022 4:07 PM Maria Del Rosario Gomez APRN, C.N.P., M.S. GI PROCEDURE ORDER PHILIP Performing Organization Address City/State/ZIP Code Phon e Number SALES PROVATION SALES PROVATION NA documented in this encounter Visit Diagnoses Diagnosis Secondary Malignant Neoplasm Liver (HCC) Medication Therapy Darkroom Technician Not Anticoa gulant Malignant Neoplasm Of Pancreas (HCC) documented in this encounter Administered Medications Inactive Administered Medications - up to 3 most recent administrations Medication Order MAR Action Action Date Dose Rate Site heparin flush 500 Units Given 01/24/2022 5:50 PM CDT 500 Units 500 Units, intra-catheter, During hospitalization, line care, Prior to discharge, Starting on Mon01/24/22 at 1530, For 1 dose, Implanted Vascular Access Device (IVAD) Venous Non-Valved: Following saline flush prior to discharge. HYDROmorphone tablet 4 mg (DILAUDID) Given 01/24/2022 5:21 PM CDT 4 mg 4 mg, oral, Every 4 hours PRN, moderate pain or score 4-6 of 10, Starting on Mon01/24/22 at 1718 documented in this encounter Additional Health Concerns Assessment Noted Time PHQ-9 Depression Total Score: 2 10/01/2021 10:34 AM CS T documented as of this encounter Care Teams Haunted History Tour Guide Relationship Specialty Start Date End Date Elsewhere, Pcp PCP - General Family Medicine 08/12/20 documented as of this encounter
--- OUTSIDE RECORDS SUMMARY | 2022-06-18 16:03 | XMS_ITS | Encounter Summary ---
:1965 Author Organization [facility] Address [address] [place] [address] Care Team Providers Name Role Phone Elsewhere, Pcp Primary Care Provider Unavailable Reason for Referral Outpatient (Routine) Specialty Diagnoses / Procedures Referred By Contact Refer red To Contact Oncology Maria Del Rosario Gomez APRN, C.NLinda, [facility] M.S. 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 [address] [place] [phone] Referral ID Status Reason Start Date Expiration Date Visits Requ ested Visits Authorized [id number] Closed 01/19/2022 01/19/2023 1 1 Reason for Visit Episode Based Medications (Routine) - Closed Specialty Diagnoses / Procedures Referred By Contact Refer red To Contact Diagnoses Malignant Neoplasm Of Pancreas (HCC) Secondary Malignant Neoplasm Liver (HCC) Medication Therapy Custodial Not Anticoagulant Jesse Perkins, [place] [facility] Procedures WY ONDANSETRON HCL INJECTION WY LEUCOVORIN CALCIUM INJECTION WY INJ IRINOTECAN LIPOSOME 1 MG W[place] FLUOROURACIL INJECTION P.A.-C., M.S. [address] [facility] [address] [place] [phone] Referral ID Status Reason Start Date Expiration Date Visits Requ ested Visits Authorized [id number] Closed 08/27/2021 08/27/2022 36 36 Encounter Details Date Type Department Care Team Description 01/19/2022 Office Visit Department of Maria Del Rosario Gomez Malignant N eoplasm Of Pancreas (HCC) (Primary Dx); Oncology in L, VEGETABLE CANNER, C.N.P., Secondary M alignant Neoplasm Liver (HCC); [place], [place] M.S. Medication Therapy Custodial Not Anticoa gulant [address] [facility] [address] [place] [phone] Social History Tobacco Use Types Packs/Day Years [...] How often do you attend taoism or rastafari services? Never 01/15/2021 Do you [...] place to sleep or slept in a senior living (including now)? Education Answer Date Recorded What is the highest level of school you have completed or 12 th grade 01/15/2021 the highest degree you have received? Sex Assigned at Date Recorded Male 08/18/2021 2:55 PM [employer] documented as of this encounter Last Filed Vital Signs Vital Sign Reading Time Taken Comments Blood Pressure 107/68 01/19/2022 9:56 AM CDT Pulse 72 01/19/2022 9:56 AM CDT Temperature 36.2 ??C (97.2 ??F) 01/19/2022 9:56 AM CDT Respiratory Rate 16 01/19/2022 9:56 AM CDT Oxygen Saturation 98% 01/19/2022 9:56 AM CDT Inhaled Oxygen Concentration - - Weight 75.3 kg (166 lb 0.1 oz) 01/19/2022 9:56 AM CDT Height 177.2 cm (5' 9.76) 01/19/2022 9:56 AM CDT Body Mass Index 23.98 01/19/2022 9:56 AM CDT documented in this encounter Progress Notes Maria Del Rosario Gomez APRN, C.N.P., M.S. - 01/19/2022 10:10 AM CDT SUBJECTIVE PRIMARY CARE PHYSICIAN ELSEWHERE, PCP LOCAL ONCOLOGIST No care pressure steamer tender to display PRIMARY LONG BRANCH ONCOLOGIST Deborah Murray M.B.B.S. Maria Del Rosario Gomez APRN, C.N.P., M.S. CHIEF COMPLAINT / REASON FOR VISIT Adam Campbell is a 56 y.o. male who presents for evaluation while on a clinical study for metastatic pancreatic adenocarcinoma. Cancer Staging Malignant Neoplasm Of Pancreas (HCC) [...] (01/25/2021 - 03/02/2021) Site: Pancreas Technique: 3D BODY CORPORATE MANAGER Goal: Curative Planned Treatment Start Date: 01/25/2021 01/25/2021 - 03/01/2021 Chemotherapy Gemcitabine ( with Radiation ) Start Date: 01/25/2021 08/13/2021 Genetic Testing and Tumor Genotyping [facility] pancreas panel negative 08/18/2021 - Research Study Participant Research Study: A Study to Analyze Onvansertib Treatment in Patients with Metastatic Pancreatic Ductal Adenocarcinoma ([id number]) Treatment Protocol: [facility] CRDF-001 ( Onvansertib (Days 1-5) / Fluorouracil / Leucovorin / Nanoliposomal Irinotecan ) 08/27/2021 - 11/11/2021 Research Study Participant Research Study: A Study to Analyze Onvansertib Treatment in Patients with Metastatic Pancreatic Ductal Adenocarcinoma ([id number]) Treatment Protocol: [facility] CRDF-001 ( Onvansertib (Days 1-10) / Fluorouracil / Leucovorin / Nanoliposomal Irinotecan ) Interval History Mr. Campbell 2 weeks have been the toughest he has experienced since starting therapy. He was seen local emergency room with 102.4 temperature and diarrhea. He states that his stool is light vero in color. He is also reporting left upper quadrant pain that is worse after eating. He has tried to avoid eating so that he does not experience the pain. He is losing weight as a result of not eating. He was started on oral antibiotics at the emergency room, [facility]. He was to prescribe this for 5 days. Hislast dose will be on MondayJanuary 22. He informs me that a CT scan was performed at that facility and was told by the provider there that everything appeared stable. He denies chest pain, night sweats, lower extremity edema or shortness of breath. The following portions of the patient's history were reviewed and updated as appropriate: allergies,current medications, family history, medical history, social history, surgical history and problem list. CURRENT MEDICATIONS Current Outpatient Medications on File Prior to Visit Medication Sig Dispense Refill ??? Creon 24,000-76,000 -120,000 unit capsule TAKE 2 CAPSULES BY MOUTH WITH MEALS AND 1 TO 2 CAPSULES WITH SNACKS 240 capsule 3 ??? gabapentin (NEURONTIN) 300 mg capsule TAKE 2 CAPSULES(600 MG) BY MOUTH AT BEDTIME 60 capsule 1 ??? HYDROmorphone (DILAUDID) 4 mg tablet Take 0.5-1 tablets (2-4 mg total) by mouth every 6 (six) hours as needed for pain Indication: Chronic Pain/Nonacute Pain. 60 tablet 0 ??? lidocaine-prilocaine (EMLA) 2.5-2.5 % cream Apply 1 application topically as needed for pain. Apply to port site. 30 g 3 ??? LORazepam (Ativan) 0.5 mg tablet Take 1 tablet (0.5 mg total) by mouth every 6 (six) hours as needed for anxiety. 10 tablet 0 ??? medical cannabis capsule Take by mouth. THC component: CBD component: ??? ondansetron (ZOFRAN) 8 mg tablet Take 1 tablet (8 mg total) by mouth every 8 (eight) hours as needed for nausea or vomiting. 30 tablet 3 ??? pantoprazole (PROTONIX) 40 mg EC tablet Take 1 tablet (40 mg total) by mouth every morning before breakfast. Take twice daily before breakfast and before dinner 10/24-10/31, then continue once daily before breakfast. 90 tablet 0 ??? polyethylene glycol (MIRALAX) 17 gram powder packet Take 1 packet (17 g total) by mouth 2 (two) times a day. Dissolve each 17 g dose in 240 mLs (8 ounces) of beverage. ??? sennosides-docusate sodium (SENOKOT-S) 8.6-50 mg per tablet Take 3 tablets by mouth 2 (two) times a day. ??? traZODone (DESYREL) 50 mg tablet Take 1-2 tablets (50-100 mg total) by mouth at bedtime. Take 50mg daily at bedtime for at least 7 days. If ineffective, may trial increase to 100 mg daily at bedtime. 30 tablet 1 No current facility-administered medications on file prior to visit. REVIEW OF SYSTEMS Constitutional: Positive for fatigue and weight loss of more than 10 pounds. Gastrointestinal: Positive for abdominal (belly) pain or cramping. All other systems reviewed and are negative. OBJECTIVE BP 107/68 (BP Location: Right arm, Patient Position: Sitting, Cuff Size: Regular) Pulse 72 Temp 36.2 ??C (Tympanic) Resp 16 Ht 177.2 cm Wt 75.3 kg SpO2 98% BMI 23.98 kg/m?? 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 Campbell his past medical records and laboratory tests. At this time his liver function tests are increasing from his last appointment. I also reviewed the imaging studies performed at the outside facility and I believe I do see potentially some sludge within the biliary stent. I reviewed the case with Dr. Murray who has also reviewed the imaging studies and at this time were going to postpone therapy and have his stents reassessed. He has had a history of pancreatitis frequentlyin the past. I reassured him that after having the stent procedure performed we may consider leavinghim on antibiotics. It all depends on what is found at the time of the ERCP. We will postpone chemo therapy until this is all resolved. I suspect that some of this is the pain he is experiencing left lower quadrant is a result of the occluded stent. Denies any further questionsor concerns. Has our telephone number to contact [...] this encounter Miscellaneous Notes Addendum Note - Shasta Adames - 01/19/2022 10:10 AM CDT Addended by: SHASTA ADAMES on: 01/25/2022 03:53 PM Modules accepted: Orders documented in this encounter Plan of Treatment Upcoming Encounters Date Type Specialty Care Team Description 06/22/2022 Lab Laboratory Medicine Maria Del Rosario Gomez AP RN, C.N.P., M.S. [address] [place] [phone] (Wo rk) 06/22/2022 Infusion Oncology Maria Del Rosario Gomez APRN, C.N .P., M.S. [address] [place] [phone] (Wo rk) 06/29/2022 Lab Laboratory Medicine Maria Del Rosario Gomez AP RN, C.N.P., M.S. [address] [place] [phone] (Wo rk) 06/29/2022 Infusion Oncology Maria Del Rosario Gomez APRN, C.N .P., M.S. [address] [place] [phone] (Wo rk) Scheduled Referrals Name Type Priority Associated Order Schedule Diagnoses Oncology office Outpatient Referral Routine Secondary Malignan t Expected: visit (clinic) Neoplasm Liver 01/19/2022, General; GIH (HCC) Expires: Pancreatic Medication Therapy 3 Custodial Not Anticoagulant Malignant Neoplasm Of Pancreas (HCC) documented as of this encounter Results ALT (Alanine Aminotransferase) (01/25/2022 1:19 PM CDT) [facility] Method Time Signature Alanine 54 7 - 55 01/25/2022 DTL Aminotransferase U/L 2:11 PM CDT (ALT), S Specimen Anatomical Collection Method Collection Time Receive d Time (Source) Location / / Volume Laterality Blood (Blood, 01/25/2022 1:19 PM 01/26/20 1:50 Venous) CDT PM CDT Maria Del Rosario Gomez APRN, C.N.P., M.S. LAB BLOOD ADD-ON Performing Organization Address City/State/ZIP Code Phon e Number [facility] - [address] [place], [place] [address] [place] [address] [facility] [address] [facility] AST (Aspartate Aminotransferase) (01/25/2022 1:19 PM CDT) Patholo gist Method Time Signature Aspartate 24 8 - 48 01/25/2022 DTL Aminotransferase U/L 3:45 PM CDT (AST), S Specimen Anatomical Collection Method Collection Time Receive d Time (Source) Location / / Volume Laterality Blood (Blood, 01/25/2022 1:19 PM 01/26/20 1:52 Venous) CDT PM CDT Pratik Willson APRNNValerie., M.S. LAB BLOOD ADD-ON Performing Organization Address City/[facility]/ZIP Code Phon e Number [facility] - [address] [place], [place] [address] [place] [address] [facility] [address] Bilirubin, Total (01/25/2022 1:19 PM CDT) P athologist Signature Bilirubin, 0.4 <=1.2 mg/dL 01/25/2022 DTL Total, S 3:45 PM CDT Specimen Anatomical Collection Method Collection Time Receive d Time (Source) Location / / Volume Laterality Blood (Blood, 01/25/2022 1:19 PM 01/26/20 1:52 Venous) CDT PM CDT Remy Willson APRN.N.Paemla., M.S. LAB BLOOD ADD-ON Performing Organization Address City/State/ZIP Code Phon e Number [facility] - [address] [place], [place] [address] [place] [address] [facility] [address] [facility] (ABNORMAL) Alkaline Phosphatase (01/25/2022 1:19 PM CDT) athologist Signature Alkaline 207 (H) 40 - 129 01/25/2022 DTL Phosphatase, S U/L 3:45 PM CDT Specimen Anatomical Collection Method Collection Time Receive d Time (Source) Location / / Volume Laterality Blood (Blood, 01/25/2022 1:19 PM 01/26/20 1:52 Venous) CDT PM CDT Maria Del Rosario Gomez APRN, C.N.P., M.S. LAB BLOOD ADD-ON Performing Organization Address City/[facility]/ZIP Code Phon e Number [facility] - [address] [place], [place] [address] [place] [id number] [place] [address] [address] [facility] Magnesium (01/25/2022 1:19 PM CDT) athologist Signature Magnesium, S 2.1 1.7 - 2.3 01/25/2022 DTL mg/dL 3:45 PM CDT Specimen Anatomical Collection Method Collection Time Receive d Time (Source) Location / / Volume Laterality Blood (Blood, 01/25/2022 1:19 PM 01/26/20 1:52 Venous) CDT PM CDT Maria Del Rosario Gomez APRN, C.N.P., M.S. LAB BLOOD ADD-ON Performing Organization Address City/State/ZIP Code Phon e Number [facility] - [address] [place], [place] [address] [place], [place] [phone] [place] [address] Phosphorus Inorganic (01/25/2022 1:19 PM CDT) athologist Signature Phosphorus 3.0 2.5 - 4.5 01/25/2022 DTL (Inorganic), S mg/dL 3:45 PM CDT Specimen Anatomical Collection Method Collection Time Receive d Time (Source) Location / / Volume Laterality Blood (Blood, 01/25/2022 1:19 PM 01/26/20 22 1:52 Venous) CDT PM CDT Maria Del Rosario Gomez APRN, C.N.P., M.S. LAB BLOOD ADD-ON Performing Organization Address City/[facility] Phon e Number [facility] - 200 [place], [place] [address] [place] [address] [place] [address] Albumin (01/25/2022 1:19 PM CDT) athologist Signature Albumin, S 3.7 3.5 - 5.0 01/25/2022 DTL g/dL 3:45 PM CDT Specimen Anatomical Collection Method Collection Time Receive d Time (Source) Location / / Volume Laterality Blood (Blood, 01/25/2022 1:19 PM 01/26/20 1:52 Venous) CDT PM CDT Maria Del Rosario Gomez APRN, C.N.P., M.S. LAB BLOOD ADD-ON Performing Organization Address [facility] Phon e Number [facility] - [address] (ABNORMAL) Basic Metabolic Panel (01/25/2022 1:19 PM CDT) athologist Signature Potassium, S 3.5 (L) 3.6 - 5.2 01/25/2022 DTL mmol/L 3:45 PM CDT Sodium, S 141 135 - 145 01/25/2022 DTL mmol/L 3:45 PM CDT Chloride, S 106 98 - 107 01/25/2022 DTL mmol/L 3:45 PM CDT Bicarbonate, S 26 22 - 29 01/25/2022 DTL mmol/L 3:45 PM CDT Anion Gap 9 7 - 15 01/25/2022 DTL 3:45 PM CDT BUN (Blood Urea 12 8 - 24 01/25/2022 DTL Nitrogen), S mg/dL 3:45 PM CDT Creatinine 0.95 0.74 - 01/25/2022 DTL 1.35 mg/dL 3:45 PM CDT eGFR-Non 88 >=60 01/25/2022 DTL Black/ mL/min/BSA 3:45 PM CDT Thai Comment: ----ADDITIONAL INFORMATION---- Estimated GFR calculated using the 2009 CKD_EPI creatinine equation. eGFR-Black/ >90 >=60 mL/min/BSA 2021 3:45 PM CDT DTL Comment: ----ADDITIONAL INFORMATION---- Estimated GFR calculated using the 2009 CKD_EPI creatinine equation. Calcium, Total, S 8.9 8.6 - 10.0 mg/dL 01/25/2022 3:45 PM CDT DTL Glucose, S 122 70 - 140 mg/dL 01/25/2022 3:45 PM CDT D TL Specimen Anatomical Collection Method Collection Time Receive d Time (Source) Location / / Volume Laterality Blood (Blood, 01/25/2022 1:19 PM 01/26/20 1:52 Venous) CDT PM CDT Maria Del Rosario Gomez APRN, C.N.P., M.S. LAB BLOOD ADD-ON Performing Organization Address City/State/ZIP Code Phon e Number [facility] - [address] [place] [address] [facility] [place] [address] [facility] 200 [facility] (ABNORMAL) CBC with Differential, Blood (01/25/2022 1:19 PM CDT) [facility] Method Time Signature Hemoglobin 10.1 (L) 13.2 - 01/25/2022 DTL 16.6 g/dL 2:11 PM CDT Hematocrit 31.6 (L) 38.3 - 01/25/2022 DTL 48.6 % 2:11 PM CDT Erythrocytes 3.61 (L) 4.35 - 01/25/2022 DTL 5.65 2:11 PM CDT x10(12)/L MCV 87.5 78.2 - 01/25/2022 DTL 97.9 fL 2:11 PM CDT RBC Distrib Width 17.3 (H) 11.8 - 01/25/2022 DTL 14.5 % 2:11 PM CDT Platelet Count 200 135 - 317 01/25/2022 DTL x10(9)/L 2:11 PM CDT Leukocytes 2.9 (L) 3.4 - 9.6 01/25/2022 DTL x10(9)/L 2:11 PM CDT Neutrophils 1.89 1.56 - 01/25/2022 DTL 6.45 2:11 PM CDT x10(9)/L Lymphocytes 0.47 (L) 0.95 - 01/25/2022 DTL 3.07 2:11 PM CDT x10(9)/L Monocytes 0.46 0.26 - 01/25/2022 DTL 0.81 2:11 PM CDT x10(9)/L Eosinophils 0.11 0.03 - 01/25/2022 DTL 0.48 2:11 PM CDT x10(9)/L Basophils <0.03 0.01 - 01/25/2022 DTL 0.08 2:11 PM CDT x10(9)/L Specimen Anatomical Collection Method Collection Time Receive d Time (Source) Location / / Volume Laterality Blood (Blood, 01/25/2022 1:19 PM 01/26/20 1:31 Venous) CDT PM CDT Remy Willson APRN.N.P., M.S. LAB BLOOD ADD-ON Performing Organization Address City/State/ZIP Code Phon e Number [facility] - [address] [place], [place] [address] [facility] [place] [address] [facility] [address] documented in this encounter Visit Diagnoses Diagnosis Malignant Neoplasm Of Pancreas (HCC) - P rimary Secondary Malignant Neoplasm Liver (HCC) Medication Therapy Custodial Not Anticoa gulant documented in this encounter Additional Health Concerns Infection Onset Date Last Indicated Resolved Time COVID19 Pending 01/19/2022 01/19/2022 01/19/2022 5:46 PM CDT Assessment Noted Time PHQ-9 Depression Total Score: 2 10/01/2021 10:34 AM CS T documented as of this encounter Care Teams Flight Operations Coordinator Relationship Specialty Start Date End Date Elsewhere, Pcp PCP - General Family Medicine 08/12/20 documented as of this encounter
--- OUTSIDE RECORDS SUMMARY | 2022-06-18 16:03 | XMS_ITS | Encounter Summary ---
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 200 [facility] 200 [place] [phone] Referral ID Status Reason Start Date Expiration Date Visits Requ ested Visits Authorized [id number] Closed 08/27/2021 08/27/2022 36 36 Encounter Details Date Type Department Care Team Description 01/19/2022 Lab Department of Laboratory Everette Zarco Secondary Malignant Neoplasm Liver (HCC) (Primary Dx); Medicine and Pathology, R, M.D. Malignant Neoplasm Of Pancreas (HCC); [facility], [place] [address] [place] [address] Bacteremia; [place], [place] Medication Therapy Fdc Not Anticoagulant [address] [place] [id number] [place] [address] [phone] Social History Tobacco Use Types Packs/Day Years [...] er 01/15/2021 How often do you attend muslim or restorationist services? 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 [address] [place] [phone] (Mj godoy) 06/22/2022 Infusion Oncology Maria Del Rosario Gomez APRN, C.N .P., M.S. [address] [place] [phone] (Mj godoy) 06/29/2022 Lab Laboratory Medicine Maria Del Rosario Gomez AP RN, C.N.P., M.S. [address] [place] [phone] (Mj godoy) 06/29/2022 Infusion Oncology Maria Del Rosario Gomez APRN, C.N .P., M.S. [address] [place] [phone] (Mj godoy) documented as of this encounter Procedures Procedure Name Priority Date/Time Associated Comments Diagnosis [facility] RESEARCH ORDER, B Routine 01/19/2022 8:28 Secondary Re sults for this AM CDT Malignant Neoplasm procedure are in Liver (HCC) the results Malignant Neoplasm section. Of Pancreas (HCC) CBC WITH DIFFERENTIAL, B Routine 01/19/2022 8:24 Secondary Results for this AM CDT Malignant Neoplasm procedure are in Liver (HCC) the results Medication Therapy section. Towboat Captain Not Anticoagulant Malignant Neoplasm Of Pancreas (HCC) ALANINE AMINOTRANSFERASE Routine 01/19/2022 8:24 Secondary Results for this (ALT), S/P AM CDT Malignant Neoplasm procedure are in Liver (HCC) the results Medication Therapy section. Towboat Captain Not Anticoagulant Malignant Neoplasm Of Pancreas (HCC) ASPARTATE Routine 01/19/2022 8:24 Secondary Results for this AMINOTRANSFERASE (AST), AM CDT Malignant Neoplas m procedure are in S/P Liver (HCC) the results Medication Therapy section. Fdc Not Anticoagulant Malignant Neoplasm Of Pancreas (HCC) PHOSPHORUS (INORGANIC), Routine 01/19/2022 8:24 Secondary R esults for this S AM CDT Malignant Neoplasm procedure are in Liver (HCC) the results Medication Therapy section. Fdc Not Anticoagulant Malignant Neoplasm Of Pancreas (HCC) ALKALINE PHOSPHATASE, Routine 01/19/2022 8:24 Secondary Res ults for this S/P AM CDT Malignant Neoplasm procedure are in Liver (HCC) the results Medication Therapy section. Fdc Not Anticoagulant Malignant Neoplasm Of Pancreas (HCC) MAGNESIUM, S Routine 01/19/2022 8:24 Secondary Results for this AM CDT Malignant Neoplasm procedure are in Liver (HCC) the results Medication Therapy section. Fdc Not Anticoagulant Malignant Neoplasm Of Pancreas (HCC) BILIRUBIN, TOT, S/P Routine 01/19/2022 8:24 Secondary Resul ts for this AM CDT Malignant Neoplasm procedure are in Liver (HCC) the results Medication Therapy section. Fdc Not Anticoagulant Malignant Neoplasm Of Pancreas (HCC) ALBUMIN, S/P Routine 01/19/2022 8:24 Secondary Results for this AM CDT Malignant Neoplasm procedure are in Liver (HCC) the results Medication Therapy section. Fdc Not Anticoagulant Malignant Neoplasm Of Pancreas (HCC) BASIC METABOLIC PANEL, Routine 01/19/2022 8:24 Secondary Re sults for this S/P AM CDT Malignant Neoplasm procedure are in Liver (HCC) the results Medication Therapy section. Towboat Captain Not Anticoagulant Malignant Neoplasm Of Pancreas (HCC) documented in this encounter Results Miscellaneous Research, B (01/19/2022 8:28 AM CDT) P athologist Signature Number of 3 01/19/2022 HSS Specimens 8:28 AM CDT Specimen Anatomical Collection Method Collection Time Receive d Time (Source) Location / / Volume Laterality Varies (Blood, 01/19/2022 8:28 AM 022 8:28 Venous) CDT AM CDT Vladislav Zarco M.D. LAB RESEARCH NO RESULT VERENICE MCFADDEN Performing Organization Address City/[facility]/ZIP Code Phon e Number [facility] - [address] [place], [place] [address] [place] [address] Laboratories-[facility] [address] [facility] (ABNORMAL) ALT (Alanine Aminotransferase) (01/19/2022 8:24 AM CDT) [facility] gist Method Time Signature Alanine 142 (H) 7 - 55 01/19/2022 DTL Aminotransferase U/L 9:23 AM CDT (ALT), S Specimen Anatomical Collection Method Collection Time Receive d Time (Source) Location / / Volume Laterality Blood (Blood, 01/19/2022 8:24 AM 01/20/20 22 9:06 Venous) CDT AM CDT Deborah VillaB.S. LAB BLOOD ADD-ON Performing Organization Address City/[facility]/ZIP Code Phon e Number [facility] - [address] [place], [place] [address] [facility] [place] [address] Laboratories-[facility] [address] [facility] (ABNORMAL) AST (Aspartate Aminotransferase) (01/19/2022 8:24 AM CDT) [facility] gist Method Time Signature Aspartate 74 (H) 8 - 48 01/19/2022 DTL Aminotransferase U/L 9:24 AM CDT (AST), P Specimen Anatomical Collection Method Collection Time Receive d Time (Source) Location / / Volume Laterality Blood (Blood, 01/19/2022 8:24 AM 01/20/20 22 8:53 Venous) CDT AM CDT Deborah VillaB.S. LAB BLOOD ADD-ON Performing Organization Address City/State/ZIP Code Phon e Number [facility] - 200 [place], [place] [address] [place], [place] [id number] [place] [address] Bilirubin, Total (01/19/2022 8:24 AM CDT) athologist Signature Bilirubin, 0.6 <=1.2 mg/dL 01/19/2022 DTL Total, P 9:24 AM CDT Specimen Anatomical Collection Method Collection Time Receive d Time (Source) Location / / Volume Laterality Blood (Blood, 01/19/2022 8:24 AM 01/20/20 22 8:53 Venous) CDT AM CDT Deborah VillaB.S. LAB BLOOD ADD-ON Performing Organization Address City/[facility]/ZIP Code Phon e Number [facility] - 200 [place], [place] [address] [place], [place] [phone] [place] [address] (ABNORMAL) Alkaline Phosphatase (01/19/2022 8:24 AM CDT) athologist Signature Alkaline 222 (H) 40 - 129 01/19/2022 DTL Phosphatase, S U/L 9:23 AM CDT Specimen Anatomical Collection Method Collection Time Receive d Time (Source) Location / / Volume Laterality Blood (Blood, 01/19/2022 8:24 AM 01/20/20 22 9:06 Venous) CDT AM CDT Deborah VillaB.S. LAB BLOOD ADD-ON Performing Organization Address City/[facility]/ZIP Code Phon e Number [facility] - 200 [place], [place] [address] [place], [place] [phone] [place] [address] Magnesium (01/19/2022 8:24 AM CDT) athologist Signature Magnesium, S 2.1 1.7 - 2.3 01/19/2022 DTL mg/dL 9:23 AM CDT Specimen Anatomical Collection Method Collection Time Receive d Time (Source) Location / / Volume Laterality Blood (Blood, 01/19/2022 8:24 AM 01/20/20 22 9:06 Venous) CDT AM CDT Deborah VillaB.S. LAB BLOOD ADD-ON Performing Organization Address City/[facility]/ZIP Code Phon e Number [facility] - 200 [place], [place] [address] [place] [address] Phosphorus Inorganic (01/19/2022 8:24 AM CDT) P athologist Signature Phosphorus 2.8 2.5 - 4.5 01/19/2022 DTL (Inorganic), S mg/dL 9:23 AM CDT Specimen Anatomical Collection Method Collection Time Receive d Time (Source) Location / / Volume Laterality Blood (Blood, 01/19/2022 8:24 AM 01/20/20 22 9:06 Venous) CDT AM CDT Deborah VillaB.S. LAB BLOOD ADD-ON Performing Organization Address City/[facility]/ZIP Code Phon e Number [facility] - [address] Albumin (01/19/2022 8:24 AM CDT) athologist Signature Albumin, S 3.9 3.5 - 5.0 01/19/2022 DTL g/dL 9:23 AM CDT Specimen Anatomical Collection Method Collection Time Receive d Time (Source) Location / / Volume Laterality Blood (Blood, 01/19/2022 8:24 AM 01/20/20 22 9:06 Venous) CDT AM CDT Deborah VillaB.S. LAB BLOOD ADD-ON Performing Organization Address City/[facility]/ZIP Code Phon e Number [facility] - 200 [place], [place] [address] [place] [address] (ABNORMAL) Basic Metabolic Panel (01/19/2022 8:24 AM [...] CDT eGFR-Black/Afri >90 >=60 01/19/2022 DTL can Mauritanian mL/min/BSA 9:24 AM CDT Comment: ----ADDITIONAL INFORMATION---- [...] 01/20/20 8:53 Venous) CDT AM CDT Deborah VillaBRiazS. LAB BLOOD ADD-ON Performing Organization Address City/State/ZIP Code Phon e Number [facility] - [address] [place], [place] [address] [facility] [place] [address] Laboratories-[facility] [address] (ABNORMAL) CBC with Differential, Blood (01/19/2022 8:24 AM CDT) [facility] Method Time Signature Hemoglobin 10.7 (L) [...] 22 8:53 Venous) CDT AM CDT Deborah VillaBRiazS. LAB BLOOD ADD-ON Performing Organization Address City/State/ZIP Code Phon e Number [facility] - [address] [place], [place] [address] [facility] [place] [address] Laboratories-[facility] [address] documented in this encounter Visit Diagnoses Diagnosis Secondary Malignant Neoplasm Liver (HCC) - Primary Malignant Neoplasm Of Pancreas (HCC) Bacteremia Medication Therapy Fdc Not Anticoa gulant documented in this encounter Administered Medications Inactive Administered Medications - up to 3 most recent administrations Medication Order MAR Action Action Date Dose Rate Site heparin flush 500 Units Given 01/19/2022 8:08 AM CDT 500 Units 500 Units, intra-catheter, As needed, line care, Starting on Mon01/19/22 at 0753, When no infusion to maintain patency: For IVAD accessed, not in use, and/or prior to hospital discharge, flush every 7 days after 0.9% preservative-free NaCL flush. For IVAD NOT accessed or used, flush every 4 weeks after 0.9% preservative-free NaCL flush. sodium chloride 0.9 % injection 10 mL Given 01/19/2022 8:07 AM CDT 10 mL 10 mL, intra-catheter, As needed, line care, Starting on Mon01/19/22 at 0753, When IVAD Accessed and in Use: Flush prior to and following infusion, between multiple consecutive infusions, and prior to blood sampling. sodium chloride 0.9 % injection 20 mL Given 01/19/2022 8:07 AM CDT 20 mL 20 mL, intra-catheter, As needed, line care, Starting on Mon01/19/22 at 0753, When IVAD Accessed and in Use: Flush post blood transfusion or post blood sampling. documented in this encounter Additional Health Concerns Assessment Noted Time PHQ-9 Depression Total Score: 2 10/01/2021 10:34 AM CS T documented as of this encounter Care Teams Stonecutter Apprentice Hand Relationship Specialty Start Date End Date Elsewhere, Pcp PCP - General Family Medicine 08/12/20 documented as of this encounter
--- OUTSIDE RECORDS SUMMARY | 2022-06-18 16:03 | XMS_ITS | Encounter Summary ---
:1965 Author Organization [facility] Address [address] [place] [address] Care Team Providers Name Role Phone Elsewhere, Pcp Primary Care Provider Unavailable Encounter Details Date Type Department Care Team Description 01/24/2022 Orders Only Division [place] [address] [facility] [address] [place] [address] [place], [place] [phone] (Wo rk) Social History Tobacco Use Types [...] How often do you attend caodaism or buddhist services? 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 [address] [place] [phone] (Wo rk) 06/22/2022 Infusion Oncology Maria Del Rosario Gomez APRN, C.N .P., M.S. [address] [place] [phone] (Wo rk) 06/29/2022 Lab Laboratory Medicine Maria Del Rosario Gomez AP RN, C.N.P., M.S. [address] [place] [phone] (Wo rk) 06/29/2022 Infusion Oncology Maria Del Rosario Gomez APRN, C.N .P., M.S. [address] [place] [phone] (Wo rk) documented as of this encounter Visit Diagnoses Not on filedocumented in this encounter Additional Health Concerns Assessment Noted Time PHQ-9 Depression Total Score: 2 10/01/2021 10:34 AM CS T documented as of this encounter Care Teams Head Baggage Porter Relationship Specialty Start Date End Date Elsewhere, Pcp PCP - General Family Medicine 08/12/20 documented as of this encounter
--- OUTSIDE RECORDS SUMMARY | 2022-06-18 16:03 | XMS_ITS | Encounter Summary ---
:1965 Author Organization [facility] Address [address] [place] [address] Care Team Providers Name Role Phone Elsewhere, Pcp Primary Care Provider Unavailable Reason for Visit Episode Based Medications (Routine) - Closed Specialty Diagnoses / Procedures Referred By Contact Refer red To Contact Diagnoses Malignant Neoplasm Of Pancreas (HCC) Secondary Malignant Neoplasm Liver (HCC) Medication Therapy Nursing Home Not Anticoagulant Jesse Perkins Rst Onc Rogo Procedures OK ONDANSETRON HCL INJECTION OK LEUCOVORIN CALCIUM INJECTION OK INJ IRINOTECAN LIPOSOME 1 MG OK FLUOROURACIL INJECTION P.A.-C., M.S. 200 [facility] [address] [place] [phone] Referral ID Status Reason Start Date Expiration Date Visits Requ ested Visits Authorized [id number] Closed 08/27/2021 08/27/2022 36 36 Encounter Details Date Type Department Care Team Description 01/25/2022 Lab Department of Infusion Maria Del Rosario Gomez, Secondary Malignant Neoplasm Liver (HCC) (Primary Dx); Therapy in [place], DRAPERY AND UPHOLSTERY MEASURER, C.N. P., M.S. Medication Therapy Supervisor Asbestos Removal Not Anticoa [facility]; [place] [address] [place] [address] Malignant Neoplasm Of Pancreas (HCC); [address] [place] [phone] (Wo rk) Social History Tobacco Use Types [...] How often do you attend temple or congregation services? 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 [address] [place] [phone] (Mj godoy) 06/22/2022 Infusion Oncology Maria Del Rosario Gomez APRN, C.N .P., M.S. [address] [place] [phone] (Mj godoy) 06/29/2022 Lab Laboratory Medicine Maria Del Rosario Gomez AP RN, C.N.P., M.S. [address] [place] [address] [phone] (Mj godoy) 06/29/2022 Infusion Oncology Maria Del Rosario Gomez APRN, C.N .P., M.S. [address] [place] [phone] (Mj godoy) documented as of this encounter Procedures Procedure Name Priority Date/Time Associated Comments Diagnosis CBC WITH DIFFERENTIAL, B Routine 01/25/2022 1:19 Secondary Results for this PM CDT Malignant Neoplasm procedure are in Liver (HCC) the results Medication Therapy section. Nursing Home Not Anticoagulant Malignant Neoplasm Of Pancreas (HCC) ALANINE AMINOTRANSFERASE Routine 01/25/2022 1:19 Secondary Results for this (ALT), S/P PM CDT Malignant Neoplasm procedure are in Liver (HCC) the results Medication Therapy section. Nursing Home Not Anticoagulant Malignant Neoplasm Of Pancreas (HCC) ASPARTATE Routine 01/25/2022 1:19 Secondary Results for this AMINOTRANSFERASE (AST), PM CDT Malignant Neoplas m procedure are in S/P Liver (HCC) the results Medication Therapy section. Supervisor Asbestos Removal Not Anticoagulant Malignant Neoplasm Of Pancreas (HCC) PHOSPHORUS (INORGANIC), Routine 01/25/2022 1:19 Secondary R esults for this S PM CDT Malignant Neoplasm procedure are in Liver (HCC) the results Medication Therapy section. Supervisor Asbestos Removal Not Anticoagulant Malignant Neoplasm Of Pancreas (HCC) ALKALINE PHOSPHATASE, Routine 01/25/2022 1:19 Secondary Res ults for this S/P PM CDT Malignant Neoplasm procedure are in Liver (HCC) the results Medication Therapy section. Nursing Home Not Anticoagulant Malignant Neoplasm Of Pancreas (HCC) MAGNESIUM, S Routine 01/25/2022 1:19 Secondary Results for this PM CDT Malignant Neoplasm procedure are in Liver (HCC) the results Medication Therapy section. Nursing Home Not Anticoagulant Malignant Neoplasm Of Pancreas (HCC) BILIRUBIN, TOT, S/P Routine 01/25/2022 1:19 Secondary Resul ts for this PM CDT Malignant Neoplasm procedure are in Liver (HCC) the results Medication Therapy section. Supervisor Asbestos Removal Not Anticoagulant Malignant Neoplasm Of Pancreas (HCC) ALBUMIN, S/P Routine 01/25/2022 1:19 Secondary Results for this PM CDT Malignant Neoplasm procedure are in Liver (HCC) the results Medication Therapy section. Supervisor Asbestos Removal Not Anticoagulant Malignant Neoplasm Of Pancreas (HCC) BASIC METABOLIC PANEL, Routine 01/25/2022 1:19 Secondary Re sults for this S/P PM CDT Malignant Neoplasm procedure are in Liver (HCC) the results Medication Therapy section. Supervisor Asbestos Removal Not Anticoagulant Malignant Neoplasm Of Pancreas (HCC) documented in this encounter Results ALT (Alanine Aminotransferase) (01/25/2022 1:19 PM CDT) [facility] Method Time Signature Alanine 54 7 - 55 01/25/2022 DTL Aminotransferase U/L 2:11 PM CDT (ALT), S Specimen Anatomical Collection Method Collection Time Receive d Time (Source) Location / / Volume Laterality Blood (Blood, 01/25/2022 1:19 PM 01/26/20 1:50 Venous) CDT PM CDT Maria Del Rosario Gomez APRN, C.N.P., M.S. LAB BLOOD ADD-ON Performing Organization Address City/[facility]/ZIP Code Phon e Number [facility] - [address] [place], [place] [address] [place] [address] [facility] [address] [facility] AST (Aspartate Aminotransferase) (01/25/2022 1:19 PM CDT) Patholo gist Method Time Signature Aspartate 24 8 - 48 01/25/2022 DTL Aminotransferase U/L 3:45 PM CDT (AST), S Specimen Anatomical Collection Method Collection Time Receive d Time (Source) Location / / Volume Laterality Blood (Blood, 01/25/2022 1:19 PM 01/26/20 1:52 Venous) CDT PM CDT Pratik Willson APRNNValerie., M.S. LAB BLOOD ADD-ON Performing Organization Address City/[facility] Code Phon e Number [facility] - [address] [place], [place] [address] [place] [address] [place] [address] [facility] [address] [facility] Bilirubin, Total (01/25/2022 1:19 PM CDT) P athologist Signature Bilirubin, 0.4 <=1.2 mg/dL 01/25/2022 DTL Total, S 3:45 PM CDT Specimen Anatomical Collection Method Collection Time Receive d Time (Source) Location / / Volume Laterality Blood (Blood, 01/25/2022 1:19 PM 01/26/20 1:52 Venous) CDT PM CDT Remy Willson APRN.N.Pamela., M.S. LAB BLOOD ADD-ON Performing Organization Address City/State/ZIP Code Phon e Number [facility] - [address] [place], [place] [address] [place] [address] [facility] [address] [facility] (ABNORMAL) Alkaline Phosphatase (01/25/2022 1:19 PM CDT) athologist Signature Alkaline 207 (H) 40 - 129 01/25/2022 DTL Phosphatase, S U/L 3:45 PM CDT Specimen Anatomical Collection Method Collection Time Receive d Time (Source) Location / / Volume Laterality Blood (Blood, 01/25/2022 1:19 PM 01/26/20 1:52 Venous) CDT PM CDT Maria Del Rosario Gomez APRN, C.N.P., M.S. LAB BLOOD ADD-ON Performing Organization Address City/[facility]/ZIP [facility] Phon e Number [facility] - 200 [place], [place] [address] [place] [phone] [place] [address] [address] [facility] Magnesium (01/25/2022 1:19 PM CDT) athologist Signature [...] City/State/ZIP Code Phon e Number [facility] - 200 [place], [place] [address] [place], [place] [address] [place] [address] Phosphorus Inorganic (01/25/2022 1:19 PM CDT) athologist Signature Phosphorus 3.0 2.5 - 4.5 01/25/2022 DTL (Inorganic), S mg/dL 3:45 PM CDT Specimen Anatomical Collection Method Collection Time Receive d Time (Source) Location / / Volume Laterality Blood (Blood, 01/25/2022 1:19 PM 01/26/20 22 1:52 Venous) CDT PM CDT Maria Del Rosario Gomez APRN, C.N.P., M.S. LAB BLOOD ADD-ON Performing Organization Address City/[facility] Phon e Number [facility] - 200 [place], [place] [address] [place] [address] Albumin (01/25/2022 1:19 PM CDT) athologist Signature Albumin, S 3.7 3.5 - 5.0 01/25/2022 DTL g/dL 3:45 PM CDT Specimen Anatomical Collection Method Collection Time Receive d Time (Source) Location / / Volume Laterality Blood (Blood, 01/25/2022 1:19 PM 01/26/20 1:52 Venous) CDT PM CDT Maria Del Rosario Gomez APRN, C.N.P., M.S. LAB BLOOD ADD-ON Performing Organization Address [facility] Phon e Number [facility] - [address] (ABNORMAL) Basic Metabolic Panel (01/25/2022 1:19 [...] 01/25/2022 DTL Black/ mL/min/BSA 3:45 PM CDT Andorran Comment: ----ADDITIONAL INFORMATION---- Estimated GFR calculated using [...] City/State/ZIP Code Phon e Number [facility] - [address] [place] [address] [place] [address] [place] [address] [facility] [address] [facility] (ABNORMAL) CBC with Differential, Blood (01/25/2022 1:19 PM CDT) [facility] Method Time Signature Hemoglobin 10.1 (L) 13.2 [...] PM 01/26/20 1:31 Venous) CDT PM CDT Pratik Willson APRNN.Pamela., M.S. LAB BLOOD ADD-ON Performing Organization Address City/State/ZIP Code Phon e Number [facility] - [address] [place], [place] [address] [facility] [place] [address] [facility] [address] documented in this encounter Visit Diagnoses Diagnosis Secondary Malignant Neoplasm Liver (HCC) - Primary Medication Therapy Supervisor Asbestos Removal Not Anticoa gulant Malignant Neoplasm Of Pancreas (HCC) Bacteremia documented in this encounter Administered Medications Inactive Administered Medications - up to 3 most recent administrations Medication Order MAR Action Action Date Dose Rate Site heparin flush 500 Units Given 01/25/2022 1:22 PM CDT 500 Units 500 Units, intra-catheter, As needed, line care, Starting on Mon01/25/22 at 1307, When no infusion to maintain patency: For IVAD accessed, not in use, and/or prior to hospital discharge, flush every 7 days after 0.9% preservative-free NaCL flush. For IVAD NOT accessed or used, flush every 4 weeks after 0.9% preservative-free NaCL flush. sodium chloride 0.9 % injection 10 mL Given 01/25/2022 1:20 PM CDT 10 mL 10 mL, intra-catheter, As needed, line care, Starting on Mon01/25/22 at 1307, When IVAD Accessed and in Use: Flush prior to and following infusion, between multiple consecutive infusions, and prior to blood sampling. sodium chloride 0.9 % injection 20 mL Given 01/25/2022 1:22 PM CDT 20 mL 20 mL, intra-catheter, As needed, line care, Starting on Mon01/25/22 at 1307, When IVAD Accessed and in Use: Flush post blood transfusion or post blood sampling. documented in this encounter Additional Health Concerns Assessment Noted Time PHQ-9 Depression Total Score: 2 10/01/2021 10:34 AM CS T documented as of this encounter Care Teams Welder Explosion Relationship Specialty Start Date End Date Elsewhere, Pcp PCP - General Family Medicine 08/12/20 documented as of this encounter
--- OUTSIDE RECORDS SUMMARY | 2022-06-18 16:04 | XMS_ITS | Encounter Summary ---
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 [address] [facility] [address] [place] [phone] Referral ID Status Reason Start Date Expiration Date Visits Requ ested Visits Authorized [id number] Closed 08/27/2021 08/27/2022 36 36 Encounter Details Date Type Department Care Team Description 12/08/2021 Infusion Department of Oncology Vladislav Zarco Secondary Malignant Neoplasm Liver (HCC) (Primary Dx); in [facility] elke Pereira M.D. Malignant Neoplasm Of Pancreas (HCC) [address] [place] [address] [place] [phone] (Wo rk) Social History Tobacco Use Types [...] How often do you attend buddhism or adventist services? 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 [address] [place] [phone] (Mj godoy) 06/22/2022 Infusion Oncology Maria Del Rosario Gomez APRN, C.N .P., M.S. [address] [place] [phone] (Mj rk) 06/29/2022 Lab Laboratory Medicine Maria Del Rosario Gomez AP RN, C.N.P., M.S. [address] [place] [phone] (Mj godoy) 06/29/2022 Infusion Oncology Maria Del Rosario Gomez APRN, C.N .P., M.S. [address] [place] [phone] (Mj rk) documented as of this encounter Visit Diagnoses Diagnosis Secondary Malignant Neoplasm Liver (HCC) - Primary Malignant Neoplasm Of Pancreas (HCC) documented in this encounter Administered Medications Inactive Administered Medications - up to 3 most recent administrations Medication Order MAR Action Action Date Dose Rate Site dexAMETHasone injection 8 mg Given 12/08/2021 11:17 AM CDT 8 mg (DECADRON) 8 mg, intravenous, Once, On Mon12/08/21 at 1115, For 1 dose fluorouraciL 5,000 mg in NaCl 0.9% Given 12/08/2021 2:09 PM CDT 5,000 mg 5 mL/hr 230 mL IVPB (ADRUCIL) 5,000 mg (rounded from 4,752 mg = 2,400 mg/m2 ? 1.98 m2 Order-specific BSA), intravenous, at 5 mL/hr, Administer over 46 Hours, over 46 hours, First dose on Mon12/08/21 at 1315, For 1 dose, Continuous infusion over 46 hours immediately following Leucovorin. Dose reflects TOTAL CALCULATED DOSE to be administered via continuous infusion over the specified length of treatment. irinotecan liposomaL 86 mg in D5W New Bag 12/08/2021 11:48 AM CDT 86 mg 347 mL/hr 520 mL IVPB (ONIVYDE) 86 mg (rounded from 85.14 mg = 43 mg/m2 ? 1.98 m2 Order-specific BSA), intravenous, at 347 mL/hr, Administer over 90 Minutes, Once, On Mon12/08/21 at 1130, For 1 dose, Administer immediately following the administration of oral onvansertib. Protect from light. No in-line filter. leucovorin 800 mg in NaCl 0.9% 315 New Bag 12/08/2021 1:31 PM CDT 800 mg 630 mL/hr mL IVPB 800 mg (rounded from 792 mg = 400 mg/m2 ? 1.98 m2 Order-specific BSA), intravenous, at 630 mL/hr, Administer over 30 Minutes, Once, On Mon12/08/21 at 1245, For 1 dose, Follows irinotecan liposome. ondansetron (PF) injection 8 mg (ZOFRAN) Given 12/08/2021 11:17 AM CDT 8 mg 8 mg, intravenous, Once, On Mon12/08/21 at 1115, For 1 dose [facility] [id number] onvansertib capsule 10 Given 11:30 AM CDT 10 mg mg (PCM-075) 10 mg, oral, Once, On Mon12/08/21 at 1200, For 1 dose, This is [...] prior to liposomal irinotecan Infusion. [facility] [id number] onvansertib capsule 20 Given 11:30 AM CDT 20 mg mg (PCM-075) 20 mg, oral, Once, On Mon12/08/21 at 1145, For 1 dose, This is the 20 [...] documented as of this encounter Care Teams Vending Attendant Relationship Specialty Start Date End Date Elsewhere, Pcp PCP - General Family Medicine 08/12/20 documented as of this encounter
--- OUTSIDE RECORDS SUMMARY | 2022-06-18 16:04 | XMS_ITS | Encounter Summary ---
:1965 Author Organization [facility] Address [address] [place] [address] Care Team Providers Name Role Phone Elsewhere, Pcp Primary Care Provider Unavailable Reason for Visit Reason Comments Med Refill Encounter Details Date Type Department Care Team Description 12/09/2021 Refill Department of Palliative Care Romi White M.D. Med Refill in [facility] [address] [facility] [address] [place] [address] [place] [phone] Social History Tobacco Use Types Packs/Day Years [...] er 01/15/2021 How often do you attend gnosticism or advent services? 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 [address] [place] [phone] (Wo rk) 06/22/2022 Infusion Oncology Maria Del Rosario Gomez APRN, C.N .P., M.S. [address] [place] [phone] (Wo rk) 06/29/2022 Lab Laboratory Medicine Maria Del Rosario Gomez AP RN, C.N.P., M.S. [address] [place] [phone] (Wo rk) 06/29/2022 Infusion Oncology Maria Del Rosario Gomez APRN, C.N .P., M.S. [address] [place] [phone] (Wo rk) documented as of this encounter Visit Diagnoses Not on filedocumented in this encounter Additional Health Concerns Assessment Noted Time PHQ-9 Depression Total Score: 2 10/01/2021 10:34 AM CS T documented as of this encounter Care Teams Pipe Cleaner Relationship Specialty Start Date End Date Elsewhere, Pcp PCP - General Family Medicine 08/12/20 documented as of this encounter
--- OUTSIDE RECORDS SUMMARY | 2022-06-18 16:04 | XMS_ITS | Encounter Summary ---
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 [address] [place] [address] [place] [phone] Referral ID Status Reason Start Date Expiration Date Visits Requ ested Visits Authorized [id number] Closed 08/27/2021 08/27/2022 36 36 Encounter Details Date Type Department Care Team Description 12/22/2021 Lab Department of Laboratory Everette Zarco Secondary Malignant Neoplasm Liver (HCC) (Primary Dx); Medicine and Pathology, R, M.D. Malignant Neoplasm Of Pancreas (HCC); Glennie, in [address] [place] [address] [place] [phone] [place] [address] [phone] Social History Tobacco Use Types Packs/Day Years [...] er 01/15/2021 How often do you attend nondenominational or druze services? 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 [address] [place] [phone] (Mj godoy) 06/22/2022 Infusion Oncology Maria Del Rosario Gomez APRN, C.N .P., M.S. [address] [place] [phone] (Mj godoy) 06/29/2022 Lab Laboratory Medicine Maria Del Rosario Gomez AP RN, C.N.P., M.S. [address] [place] [phone] (Mj godoy) 06/29/2022 Infusion Oncology Maria Del Rosario Gomez APRN, C.N .P., M.S. [address] [place] [phone] (Mj godoy) documented as of this encounter Procedures Procedure Name Priority Date/Time Associated Comments Diagnosis CBC WITH DIFFERENTIAL, B Routine 12/22/2021 7:42 Secondary Results for this AM CDT Malignant Neoplasm procedure are in Liver (HCC) the results Malignant Neoplasm section. Of Pancreas (HCC) ALANINE AMINOTRANSFERASE Routine 12/22/2021 7:42 Secondary Results for this (ALT), S/P AM CDT Malignant Neoplasm procedure are in Liver (HCC) the results Malignant Neoplasm section. Of Pancreas (HCC) ASPARTATE Routine 12/22/2021 7:42 Secondary Results for this AMINOTRANSFERASE (AST), AM CDT Malignant Neoplas m procedure are in S/P Liver (HCC) the results Malignant Neoplasm section. Of Pancreas (HCC) PHOSPHORUS (INORGANIC), Routine 12/22/2021 7:42 Secondary R esults for this S AM CDT Malignant Neoplasm procedure are in Liver (HCC) the results Malignant Neoplasm section. Of Pancreas (HCC) ALKALINE PHOSPHATASE, Routine 12/22/2021 7:42 Secondary Res ults for this S/P AM CDT Malignant Neoplasm procedure are in Liver (HCC) the results Malignant Neoplasm section. Of Pancreas (HCC) MAGNESIUM, S Routine 12/22/2021 7:42 Secondary Results for this AM CDT Malignant Neoplasm procedure are in Liver (HCC) the results Malignant Neoplasm section. Of Pancreas (HCC) BILIRUBIN, TOT, S/P Routine 12/22/2021 7:42 Secondary Resul ts for this AM CDT Malignant Neoplasm procedure are in Liver (HCC) the results Malignant Neoplasm section. Of Pancreas (HCC) ALBUMIN, S/P Routine 12/22/2021 7:42 Secondary Results for this AM CDT Malignant Neoplasm procedure are in Liver (HCC) the results Malignant Neoplasm section. Of Pancreas (HCC) BASIC METABOLIC PANEL, Routine 12/22/2021 7:42 Secondary Re sults for this S/P AM CDT Malignant Neoplasm procedure are in Liver (HCC) the results Malignant Neoplasm section. Of Pancreas (HCC) documented in this encounter Results ALT (Alanine Aminotransferase) (12/22/2021 7:42 AM CDT) [facility] gist Method Time Signature Alanine 34 7 - 55 12/22/2021 DTL Aminotransferase U/L 8:33 AM CDT (ALT), S Specimen Anatomical Collection Method Collection Time Receive d Time (Source) Location / / Volume Laterality Blood (Blood, 12/22/2021 7:42 AM 12/23/19 22 8:13 Venous) CDT AM CDT Vladislav Zarco M.D. LAB BLOOD ADD-ON Performing Organization Address City/[facility] Phon e Number [facility] - 200 [place] [address] 05 [facility] DTL [address] AST (Aspartate Aminotransferase) (12/22/2021 7:42 AM CDT) Patholo gist Method Time Signature Aspartate 22 8 - 48 12/22/2021 M[facility] Aminotransferase U/L 8:20 AM CDT (AST), P Specimen Anatomical Collection Method Collection Time Receive d Time (Source) Location / / Volume Laterality Blood (Blood, 12/22/2021 7:42 AM 12/23/19 22 7:48 Venous) CDT AM CDT Vladislav Zarco M.D. LAB BLOOD ADD-ON Performing Organization Address [facility] Phon e Number [facility] - [address] [place] [address] 05 [facility] [place] [address] Bilirubin, Total (12/22/2021 7:42 AM CDT) P athologist Signature Bilirubin, 0.4 <=1.2 mg/dL 12/22/2021 M[facility] Total, P 8:20 AM CDT Specimen Anatomical Collection Method Collection Time Receive d Time (Source) Location / / Volume Laterality Blood (Blood, 12/22/2021 7:42 AM 12/23/19 22 7:48 Venous) CDT AM CDT Vladislav Zarco M.D. LAB BLOOD ADD-ON Performing Organization Address City/[facility] Phon e Number [facility] - [address] [place] [address] 05 [facility] [place], [place] [id number] [place] [address] (ABNORMAL) Alkaline Phosphatase (12/22/2021 7:42 AM CDT) P athologist Signature Alkaline 131 (H) 40 - 129 12/22/2021 DTL Phosphatase, S U/L 8:33 AM CDT Specimen Anatomical Collection Method Collection Time Receive d Time (Source) Location / / Volume Laterality Blood (Blood, 12/22/2021 7:42 AM 12/23/19 22 8:13 Venous) CDT AM CDT Vladislav Zarco M.D. LAB BLOOD ADD-ON Performing Organization Address City/State/ZIP Code Phon e Number [facility] - [address] [place], [place] [address] [facility] [place] [address] [facility] [address] [facility] Magnesium (12/22/2021 7:42 AM CDT) P athologist Signature Magnesium, S 2.1 1.7 - 2.3 12/22/2021 DTL mg/dL 8:33 AM CDT Specimen Anatomical Collection Method Collection Time Receive d Time (Source) Location / / Volume Laterality Blood (Blood, 12/22/2021 7:42 AM 12/23/19 22 8:13 Venous) CDT AM CDT Vladislav Zarco M.D. LAB BLOOD ADD-ON Performing Organization Address City/[facility]/ZIP Code Phon e Number [facility] - [address] [place], [place] [address] [facility] [place] [address] [facility] [address] [facility] Phosphorus Inorganic (12/22/2021 7:42 AM CDT) P athologist Signature Phosphorus 3.4 2.5 - 4.5 12/22/2021 DTL (Inorganic), S mg/dL 8:33 AM CDT Specimen Anatomical Collection Method Collection Time Receive d Time (Source) Location / / Volume Laterality Blood (Blood, 12/22/2021 7:42 AM 12/23/19 22 8:13 Venous) CDT AM CDT Vladislav Zarco M.D. LAB BLOOD ADD-ON Performing Organization Address City/State/ZIP Code Phon e Number [facility] - 200 [place], [place] [address] [facility] [place], [place] [phone] [place] [address] [facility] Albumin (12/22/2021 7:42 AM CDT) P athologist Signature Albumin, S 3.9 3.5 - 5.0 12/22/2021 DTL g/dL 8:33 AM CDT Specimen Anatomical Collection Method Collection Time Receive d Time (Source) Location / / Volume Laterality Blood (Blood, 12/22/2021 7:42 AM 12/23/19 8:13 Venous) CDT AM CDT Vladislav Zarco M.D. LAB BLOOD ADD-ON Performing Organization Address City/State/ZIP Code Phon e Number [facility] - 200 [place], [place] [address] [facility] [place] [place] [address] [facility] [address] (ABNORMAL) Basic Metabolic Panel (12/22/2021 7:42 AM CDT) P athologist Signature Potassium, P 3.9 3.6 - 5.2 12/22/2021 M[facility] mmol/L 8:20 AM CDT Sodium, P 141 135 - 145 12/22/2021 M[facility] mmol/L 8:20 AM CDT Chloride, P 108 (H) 98 - 107 12/22/2021 M[facility] mmol/L 8:20 AM CDT Bicarbonate, P 24 22 - 29 12/22/2021 M[facility] mmol/L 8:20 AM CDT Anion Gap, P 9 7 - 15 12/22/2021 M[facility] 8:20 AM CDT BUN (Blood Urea 11 8 - 24 12/22/2021 [facility] Nitrogen), P mg/dL 8:20 AM CDT Creatinine 0.79 0.74 - 12/22/2021 M[facility] 1.35 mg/dL 8:20 AM CDT eGFR-Black/Afri >90 >=60 12/22/2021 M[facility] can Brazilian mL/min/BSA 8:20 AM CDT Comment: ----ADDITIONAL INFORMATION---- Estimated GFR calculated using the 2009 CKD_EPI creatinine equation. eGFR Non-Black/ >90 >=60 mL/min/BSA 12/22/2021 8:20 AM CDT METH Comment: ----ADDITIONAL INFORMATION---- Estimated GFR calculated using the 2009 CKD_EPI creatinine equation. Calcium, Total, P 9.0 8.6 - 10.0 mg/dL 12/22/2021 8:20 AM CDT METH Glucose, P 100 70 - 140 mg/dL 12/22/2021 8:20 AM CDT M ETH Specimen Anatomical Collection Method Collection Time Receive d Time (Source) Location / / Volume Laterality Blood (Blood, 12/22/2021 7:42 AM 12/23/19 7:48 Venous) CDT AM CDT Vladislav Zarco M.D. LAB BLOOD ADD-ON Performing Organization Address City/State/ZIP Code Phon e Number [facility] - [address] [place] [address] [facility] [place] [address] [facility] [address] [facility] (ABNORMAL) CBC with Differential, Blood (12/22/2021 7:42 AM CDT) [facility] gist Method Time Signature Hemoglobin 11.0 (L) 13.2 - 12/22/2021 DTL 16.6 g/dL 8:22 AM CDT Hematocrit 34.5 (L) 38.3 - 12/22/2021 DTL 48.6 % 8:22 AM CDT Erythrocytes 3.94 (L) 4.35 - 12/22/2021 DTL 5.65 8:22 AM CDT x10(12)/L MCV 87.6 78.2 - 12/22/2021 DTL 97.9 fL 8:22 AM CDT RBC Distrib Width 16.6 (H) 11.8 - 12/22/2021 DTL 14.5 % 8:22 AM CDT Platelet Count 139 135 - 317 12/22/2021 DTL x10(9)/L 8:22 AM CDT Leukocytes 3.1 (L) 3.4 - 9.6 12/22/2021 DTL x10(9)/L 8:22 AM CDT Neutrophils 2.12 1.56 - 12/22/2021 DTL 6.45 8:22 AM CDT x10(9)/L Lymphocytes 0.47 (L) 0.95 - 12/22/2021 DTL 3.07 8:22 AM CDT x10(9)/L Monocytes 0.42 0.26 - 12/22/2021 DTL 0.81 8:22 AM CDT x10(9)/L Eosinophils 0.11 0.03 - 12/22/2021 DTL 0.48 8:22 AM CDT x10(9)/L Basophils <0.03 0.01 - 12/22/2021 DTL 0.08 8:22 AM CDT x10(9)/L Specimen Anatomical Collection Method Collection Time Receive d Time (Source) Location / / Volume Laterality Blood (Blood, 12/22/2021 7:42 AM 12/23/19 8:06 Venous) CDT AM CDT Vladislav Zarco M.D. LAB BLOOD ADD-ON Performing Organization Address City/State/ZIP Code Phon e Number [facility] - [address] [place], [place] [address] [facility] [place] [address] [facility] [address] documented in this encounter Visit Diagnoses Diagnosis Secondary Malignant Neoplasm Liver (HCC) - Primary Malignant Neoplasm Of Pancreas (HCC) Bacteremia documented in this encounter Administered Medications Inactive Administered Medications - up to 3 most recent administrations Medication Order MAR Action Action Date Dose Rate Site heparin flush 500 Units Given 12/22/2021 7:29 AM CDT 500 Units 500 Units, intra-catheter, As needed, line care, Starting on Mon12/22/21 at 07, When no infusion to maintain patency: For IVAD accessed, not in use, and/or prior to hospital discharge, flush every 7 days after 0.9% preservative-free NaCL flush. For IVAD NOT accessed or used, flush every 4 weeks after 0.9% preservative-free NaCL flush. sodium chloride 0.9 % injection 10 mL Given 12/22/2021 7:28 AM CDT 10 mL 10 mL, intra-catheter, As needed, line care, Starting on Mon12/22/21 at 07, When IVAD Accessed and in Use: Flush prior to and following infusion, between multiple consecutive infusions, and prior to blood sampling. sodium chloride 0.9 % injection 20 mL Given 12/22/2021 7:29 AM CDT 20 mL 20 mL, intra-catheter, As needed, line care, Starting on Mon12/22/21 at 07, When IVAD Accessed and in Use: Flush post blood transfusion or post blood sampling. documented in this encounter Additional Health Concerns Assessment Noted Time PHQ-9 Depression Total Score: 2 10/01/2021 10:34 AM CS T documented as of this encounter Care Teams Customer Services Supervisor Relationship Specialty Start Date End Date Elsewhere, Pcp PCP - General Family Medicine 08/12/20 documented as of this encounter
--- OUTSIDE RECORDS SUMMARY | 2022-06-18 16:04 | XMS_ITS | Encounter Summary ---
:1965 Author Organization [facility] Address [address] [place] [address] Care Team Providers Name Role Phone Elsewhere, Pcp Primary Care Provider Unavailable Reason for Visit Reason Comments Med Refill Encounter Details Date Type Department Care Team Description 11/29/2021 Refill Department of Palliative Care Terri Wood APRN, Med Refill in [facility] C.N.P., D.N.P. [address] [facility] [address] [place] [address] [place] [address] [phone] (Wo rk) Social History Tobacco Use Types [...] How often do you attend bahai or samaritan services? 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 - 11/29/2021 3:33 PM CDT Prescription Refill Request Current Prescription Regimen: hydromorphone 4 mg tablet, 0.5-1 tablet by mouth every 6 hours as needed Last strength/amount/date filled: hydromorphone 4 mg tablet, #60, 10/23/21 [place] [employer]PER[employer]LL MAINTENANCE reviewed Prescription/amount provided today: hydromorphone 4 mg tablets, #60 Prescription will be e-Prescribed to the following pharmacy: [facility] [place] Last appointment was in person office visit on 08/12/21 Next palliative appointment is in person office visit on 12/10/21 Prescription was authorized by Ingrid Obregon CNP documented in this encounter Plan of Treatment Upcoming Encounters Date Type Specialty Care Team Description 06/22/2022 Lab Laboratory Medicine Maria Del Rosario Gomez AP RN, C.N.P., M.S. [address] [place] [phone] (Mj godoy) 06/22/2022 Infusion Oncology Maria Del Rosario Gomez APRN, C.N .P., M.S. [address] [place] [phone] (Mj godoy) 06/29/2022 Lab Laboratory Medicine Maria Del Rosario Gomez AP RN, C.N.P., M.S. [address] [place] [phone] (Mj godoy) 06/29/2022 Infusion Oncology Maria Del Rosario Gomez APRN, C.N .P., M.S. [address] [place] [phone] (Mj godoy) documented as of this encounter Visit Diagnoses Not on filedocumented in this encounter Additional Health Concerns Assessment Noted Time PHQ-9 Depression Total Score: 2 10/01/2021 10:34 AM CS T documented as of this encounter Care Teams Drawer In Plain Loom Relationship Specialty Start Date End Date Elsewhere, Pcp PCP - General Family Medicine 08/12/20 documented as of this encounter
--- OUTSIDE RECORDS SUMMARY | 2022-06-18 16:04 | XMS_ITS | Encounter Summary ---
:1965 Author Organization [facility] Address [address] [place] [address] Care Team Providers Name Role Phone Elsewhere, Pcp Primary Care Provider Unavailable Reason for Visit Episode Based Medications (Routine) - Closed Specialty Diagnoses / Procedures Referred By Contact Refer red To Contact Diagnoses Malignant Neoplasm Of Pancreas (HCC) Secondary Malignant Neoplasm Liver (HCC) Medication Therapy Correction Not Anticoagulant Jesse Perkins, [place] Onc Rogo Procedures [place] ONDANSETRON HCL INJECTION [place] LEUCOVORIN CALCIUM INJECTION [place] INJ IRINOTECAN LIPOSOME 1 MG [place] FLUOROURACIL INJECTION P.A.-C., M.S. 200 [facility] [address] [place] [phone] Referral ID Status Reason Start Date Expiration Date Visits Requ ested Visits Authorized [id number] Closed 08/27/2021 08/27/2022 36 36 Encounter Details Date Type Department Care Team Description 01/06/2022 Office Visit Department of Oncology Sabas Tesfaye Seco ndary Malignant Neoplasm Liver (HCC) (Primary Dx); in Chanelle Perdomo, Ph.D. Malignant Neoplasm Of Pancreas (HCC) [address] [phone] Social History Tobacco Use Types Packs/Day Years [...] er 01/15/2021 How often do you attend hindu or rastafari services? 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 - 01/06/2022 1:30 PM CDT SUBJECTIVE REFERRAL Deborah Murray M.B.B.S. CHIEF COMPLAINT / REASON FOR VISIT Primary Staff: Dr. Deborah Hunter Ma / Maria Del Rosario Gomez, CAPTURE MANAGER, INSERTING OPERATOR, MS Metastatic pancreatic cancer HISTORY OF PRESENT ILLNESS [...] (01/25/2021 - 03/02/2021) Site: Pancreas Technique: 3D MODEL AND MOLD MAKER Goal: Curative Planned Treatment Start Date: 01/25/2021 01/25/2021 - 03/01/2021 Chemotherapy Gemcitabine ( with Radiation ) Start Date: 01/25/2021 08/13/2021 Genetic Testing and Tumor Genotyping [facility] pancreas panel negative 08/18/2021 - Research Study Participant Research Study: A Study to Analyze Onvansertib Treatment in Patients with Metastatic Pancreatic Ductal Adenocarcinoma ([id number]) Treatment Protocol: [facility] CRDF-001 ( Onvansertib (Days 1-5) / Fluorouracil / Leucovorin / Nanoliposomal Irinotecan ) 08/27/2021 - 11/11/2021 Research Study Participant Research Study: A Study to Analyze Onvansertib Treatment in Patients with Metastatic Pancreatic Ductal Adenocarcinoma ([id number]) Treatment Protocol: [facility] CRDF-001 ( Onvansertib (Days 1-10) / Fluorouracil / Leucovorin / Nanoliposomal Irinotecan ) Interval History Mr. Adam Campbell is a 56 year-old gentleman accompanied by his from [place], [place] presenting in follow-up for metastatic pancreatic [...] visit. Wt Readings from Last 3 Encounters: 12/22/21 76.4 kg 12/08/21 76.5 kg 11/24/21 76.7 kg BMI Readings from Last 3 Encounters: 12/22/21 24.22 kg/m?? 12/08/21 24.56 kg/m?? 11/24/21 24.48 kg/m?? PHYSICAL EXAM General: Patient is in [...] clear to auscultation bilaterally. Gastrointestinal: Abdomen is non-distended, non-tender to palpation, normoactive bowel sounds with no organomegaly. Musculoskeletal: No evidence of active synovitis Psychiatric: Alert and oriented with appropriate mood and affect. ECOG Performance Status: 0 ASSESSMENT / PLAN ASSESSMENT 1. Metastatic adenocarcinoma of the pancreatic head Mr. Adam Campbell is a 56 year-old gentleman accompanied by his from [place], [place] presenting in follow-up for metastatic pancreatic cancer. Mrs. Campbell is currently enrolled in the CRDF-001 clinical trial involving 5- fluorouracil, jolly-liposomal irinotecan, and onvansertib. He has received eight cycles to date. Results of his blood work were discussed demonstrating mild normocytic anemia to 10.3 with normal platelet count, but mild leukopenia with an ANC of 2310. Electrolytes are reassuring and renal function appears stable with a creatinine of 0.94. Liver biochemical studies are unremarkable. We reviewed the results of his re-staging scans performed today. CT of the chest revealed stability of his multiple bilateral tiny pulmonary nodules (largest measuring [address] of the abdomen and pelvis demonstrated stability of his lesion in segment VII of the right hepatic lobe measuring 1.4 cm. 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 Taken together, Mr. Campbell continues to have stable disease. We celebrated these results. PLAN ??? Laboratory and clinical parameters are appropriate to proceed with cycle nine of 5-fluorouracil,jolly-liposomal irinotecan and onvansertib (CRDF-001 trial). PATIENT EDUCATION: Ready to learn, no apparent [...] Gomez AP RN, C.N.P., M.S. [address] [place] [phone] (Mj godoy) 06/22/2022 Infusion Oncology AftonMaria Del Rosario pierre APRN, C.N .P., M.S. [address] [place] [phone] (Mj godoy) 06/29/2022 Lab Laboratory Medicine Maria Del Rosario Gomez AP RN, C.N.P., M.S. [address] [place] [phone] (Mj godoy) 06/29/2022 Infusion Oncology Maria Del Rosario Gomez APRN, C.N .P., M.S. [address] [place] [phone] (Mj godoy) documented as of this encounter Visit Diagnoses Diagnosis Secondary Malignant Neoplasm Liver (HCC) - Primary Malignant Neoplasm Of Pancreas (HCC) documented in this encounter Additional Health Concerns Assessment Noted Time PHQ-9 Depression Total Score: 2 10/01/2021 10:34 AM CS T documented as of this encounter Care Teams Bilingual Branch Manager Relationship Specialty Start Date End Date Elsewhere, Pcp PCP - General Family Medicine 08/12/20 documented as of this encounter
--- OUTSIDE RECORDS SUMMARY | 2022-06-18 16:04 | XMS_ITS | Encounter Summary ---
:1965 Author Organization [facility] Address [address] [place] [address] Care Team Providers Name Role Phone Elsewhere, Pcp Primary Care Provider Unavailable Reason for Visit Episode Based Medications (Routine) - Closed Specialty Diagnoses / Procedures Referred By Contact Refer red To Contact Diagnoses Malignant Neoplasm Of Pancreas (HCC) Secondary Malignant Neoplasm Liver (HCC) Medication Therapy Mcc Not Anticoagulant Jesse Perkins Rst Onc Rogo Procedures NH ONDANSETRON HCL INJECTION NH LEUCOVORIN CALCIUM INJECTION NH INJ IRINOTECAN LIPOSOME 1 MG NH FLUOROURACIL INJECTION P.A.-C., M.S. [address] [place] [address] [place] [phone] Referral ID Status Reason Start Date Expiration Date Visits Requ ested Visits Authorized [id number] Closed 08/27/2021 08/27/2022 36 36 Encounter Details Date Type Department Care Team Description 12/08/2021 Lab Department of Laboratory Everette Zarco Secondary Malignant Neoplasm Liver (HCC) (Primary Dx); Medicine and Pathology, R, M.D. Malignant Neoplasm Of Pancreas (HCC); [place], [place] [address] [place] [address] [place] [phone] [place] [address] [phone] Social History Tobacco Use Types Packs/Day Years [...] er 01/15/2021 How often do you attend samaritan or oriental orthodox services? 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 [address] [place] [phone] (Mj godoy) 06/22/2022 Infusion Oncology Maria Del Rosario Gomez APRN, C.N .P., M.S. [address] [place] [phone] (Mj godoy) 06/29/2022 Lab Laboratory Medicine Maria Del Rosario Gomez AP RN, C.N.P., M.S. [address] [place] [phone] (Mj godoy) 06/29/2022 Infusion Oncology Maria Del Rosario Gomez APRN, C.N .P., M.S. [address] [place] [phone] (Mj godoy) documented as of this encounter Procedures Procedure Name Priority Date/Time Associated Comments Diagnosis [facility], B Routine 12/08/2021 7:56 Secondary Re sults for this AM CDT Malignant Neoplasm procedure are in Liver (HCC) the results Malignant Neoplasm section. Of Pancreas (HCC) CBC WITH DIFFERENTIAL, B Routine 12/08/2021 7:56 Secondary Results for this AM CDT Malignant Neoplasm procedure are in Liver (HCC) the results Malignant Neoplasm section. Of Pancreas (HCC) ALANINE AMINOTRANSFERASE Routine 12/08/2021 7:56 Secondary Results for this (ALT), S/P AM CDT Malignant Neoplasm procedure are in Liver (HCC) the results Malignant Neoplasm section. Of Pancreas (HCC) ASPARTATE Routine 12/08/2021 7:56 Secondary Results for this AMINOTRANSFERASE (AST), AM CDT Malignant Neoplas m procedure are in S/P Liver (HCC) the results Malignant Neoplasm section. Of Pancreas (HCC) PHOSPHORUS (INORGANIC), Routine 12/08/2021 7:56 Secondary R esults for this S AM CDT Malignant Neoplasm procedure are in Liver (HCC) the results Malignant Neoplasm section. Of Pancreas (HCC) ALKALINE PHOSPHATASE, Routine 12/08/2021 7:56 Secondary Res ults for this S/P AM CDT Malignant Neoplasm procedure are in Liver (HCC) the results Malignant Neoplasm section. Of Pancreas (HCC) MAGNESIUM, S Routine 12/08/2021 7:56 Secondary Results for this AM CDT Malignant Neoplasm procedure are in Liver (HCC) the results Malignant Neoplasm section. Of Pancreas (HCC) BILIRUBIN, TOT, S/P Routine 12/08/2021 7:56 Secondary Resul ts for this AM CDT Malignant Neoplasm procedure are in Liver (HCC) the results Malignant Neoplasm section. Of Pancreas (HCC) ALBUMIN, S/P Routine 12/08/2021 7:56 Secondary Results for this AM CDT Malignant Neoplasm procedure are in Liver (HCC) the results Malignant Neoplasm section. Of Pancreas (HCC) BASIC METABOLIC PANEL, Routine 12/08/2021 7:56 Secondary Re sults for this S/P AM CDT Malignant Neoplasm procedure are in Liver (HCC) the results Malignant Neoplasm section. Of Pancreas (HCC) documented in this encounter Results ALT (Alanine Aminotransferase) (12/08/2021 7:56 AM CDT) [facility] Method Time Signature Alanine 36 7 - 55 12/08/2021 DTL Aminotransferase U/L 8:43 AM CDT (ALT), S Specimen Anatomical Collection Method Collection Time Receive d Time (Source) Location / / Volume Laterality Blood (Blood, 12/08/2021 7:56 AM 12/09/19 22 8:25 Venous) CDT AM CDT Vladislav Zarco M.D. LAB BLOOD ADD-ON Performing Organization Address City/[facility]/ZIP Code Phon e Number [facility] - [address] [place], [place] [address] [facility] [place], [place] [phone] [place] [address] [address] [facility] AST (Aspartate Aminotransferase) (12/08/2021 7:56 AM CDT) Patholo gist Method Time Signature Aspartate 27 8 - 48 12/08/2021 METH Aminotransferase U/L 8:34 AM CDT (AST), P Specimen Anatomical Collection Method Collection Time Receive d Time (Source) Location / / Volume Laterality Blood (Blood, 12/08/2021 7:56 AM 12/09/19 22 8:04 Venous) CDT AM CDT Vladislav Zarco M.D. LAB BLOOD ADD-ON Performing Organization Address City/[facility] Phon e Number [facility] - [address] [place], [place] [address] [place], [place] [phone] [place] [address] [address] [facility] Bilirubin, Total (12/08/2021 7:56 AM CDT) P athologist Signature Bilirubin, 0.5 <=1.2 mg/dL 12/08/2021 METH Total, P 8:34 AM CDT Specimen Anatomical Collection Method Collection Time Receive d Time (Source) Location / / Volume Laterality Blood (Blood, 12/08/2021 7:56 AM 12/09/19 22 8:04 Venous) CDT AM CDT Vladislav Zarco M.D. LAB BLOOD ADD-ON Performing Organization Address City/State/ZIP [facility] Phon e Number [facility] - [address] [place], [place] [address] [facility] [place] [address] [facility] [address] [facility] (ABNORMAL) Alkaline Phosphatase (12/08/2021 7:56 AM CDT) P athologist Signature Alkaline 145 (H) 40 - 129 12/08/2021 DTL Phosphatase, S U/L 8:43 AM CDT Specimen Anatomical Collection Method Collection Time Receive d Time (Source) Location / / Volume Laterality Blood (Blood, 12/08/2021 7:56 AM 12/09/19 22 8:25 Venous) CDT AM CDT Vladislav Zarco M.D. LAB BLOOD ADD-ON Performing Organization Address City/State/ZIP Code Phon e Number [facility] - [address] [place], [place] [address] [place] [address] [facility] [address] Magnesium (12/08/2021 7:56 AM CDT) P athologist Signature Magnesium, S 2.0 1.7 - 2.3 12/08/2021 DTL mg/dL 8:43 AM CDT Specimen Anatomical Collection Method Collection Time Receive d Time (Source) Location / / Volume Laterality Blood (Blood, 12/08/2021 7:56 AM 12/09/19 22 8:25 Venous) CDT AM CDT Vladislav Zarco M.D. LAB BLOOD ADD-ON Performing Organization Address City/State/ZIP Code Phon e Number [facility] - [address] [place], [place] [address] [facility] [place] [address] [facility] [address] Phosphorus Inorganic (12/08/2021 7:56 AM CDT) P athologist Signature Phosphorus 3.6 2.5 - 4.5 12/08/2021 DTL (Inorganic), S mg/dL 8:43 AM CDT Specimen Anatomical Collection Method Collection Time Receive d Time (Source) Location / / Volume Laterality Blood (Blood, 12/08/2021 7:56 AM 12/09/19 22 8:25 Venous) CDT AM CDT Vladislav Zarco M.D. LAB BLOOD ADD-ON Performing Organization Address City/State/ZIP Code Phon e Number [facility] - [address] [place], [place] [address] [facility] [place] [address] [facility] [address] Albumin (12/08/2021 7:56 AM CDT) athologist Signature Albumin, S 3.9 3.5 - 5.0 12/08/2021 DTL g/dL 8:43 AM CDT Specimen Anatomical Collection Method Collection Time Receive d Time (Source) Location / / Volume Laterality Blood (Blood, 12/08/2021 7:56 AM 12/09/19 8:25 Venous) CDT AM CDT Vladislav Zarco M.D. LAB BLOOD ADD-ON Performing Organization Address City/State/ZIP Code Phon e Number [facility] - [address] [place] [address] [facility] [place] [address] [facility] [place] 200 [facility] Basic Metabolic Panel (12/08/2021 7:56 AM CDT) athologist Signature Potassium, P 3.8 3.6 - 5.2 12/08/2021 METH mmol/L 8:34 AM CDT Sodium, P 142 135 - 145 12/08/2021 METH mmol/L 8:34 AM CDT Chloride, P 107 98 - 107 12/08/2021 METH mmol/L 8:34 AM CDT Bicarbonate, P 25 22 - 29 12/08/2021 METH mmol/L 8:34 AM CDT Anion Gap, P 10 7 - 15 12/08/2021 METH 8:34 AM CDT BUN (Blood Urea 14 8 - 24 12/08/2021 METH Nitrogen), P mg/dL 8:34 AM CDT Creatinine 0.81 0.74 - 12/08/2021 METH 1.35 mg/dL 8:34 AM CDT eGFR-Black/Afric >90 >=60 12/08/2021 METH an [place]uran mL/min/BSA 8:34 AM CDT Comment: ----ADDITIONAL INFORMATION---- Estimated GFR calculated using the 2009 CKD_EPI creatinine equation. eGFR Non-Black/ >90 >=60 mL/min/BSA 12/08/2021 8:34 AM CDT METH Comment: ----ADDITIONAL INFORMATION---- Estimated GFR calculated using the 2009 CKD_EPI creatinine equation. Calcium, Total, P 9.1 8.6 - 10.0 mg/dL 12/08/2021 8:34 AM CDT METH Glucose, P 98 70 - 140 mg/dL 12/08/2021 8:34 AM CDT M ETH Specimen Anatomical Collection Method Collection Time Receive d Time (Source) Location / / Volume Laterality Blood (Blood, 12/08/2021 7:56 AM 12/09/19 8:04 Venous) CDT AM CDT Vladislav Zarco M.D. LAB BLOOD ADD-ON Performing Organization Address City/State/ZIP Code Phon e Number [facility] - [address] [place], [place] [address] [facility] [place] [address] [facility] [place] [address] (ABNORMAL) CBC with Differential, Blood (12/08/2021 7:56 AM CDT) [facility] Method Time Signature Hemoglobin 11.1 (L) 13.2 - 12/08/2021 DTL 16.6 g/dL 8:22 AM CDT Hematocrit 34.3 (L) 38.3 - 12/08/2021 DTL 48.6 % 8:22 AM CDT Erythrocytes 4.00 (L) 4.35 - 12/08/2021 DTL 5.65 8:22 AM CDT x10(12)/L MCV 85.8 78.2 - 12/08/2021 DTL 97.9 fL 8:22 AM CDT RBC Distrib Width 16.7 (H) 11.8 - 12/08/2021 DTL 14.5 % 8:22 AM CDT Platelet Count 141 135 - 317 12/08/2021 DTL x10(9)/L 8:22 AM CDT Leukocytes 3.1 (L) 3.4 - 9.6 12/08/2021 DTL x10(9)/L 8:22 AM CDT Neutrophils 2.02 1.56 - 12/08/2021 DTL 6.45 8:22 AM CDT x10(9)/L Lymphocytes 0.47 (L) 0.95 - 12/08/2021 DTL 3.07 8:22 AM CDT x10(9)/L Monocytes 0.47 0.26 - 12/08/2021 DTL 0.81 8:22 AM CDT x10(9)/L Eosinophils 0.12 0.03 - 12/08/2021 DTL 0.48 8:22 AM CDT x10(9)/L Basophils <0.03 0.01 - 12/08/2021 DTL 0.08 8:22 AM CDT x10(9)/L Specimen Anatomical Collection Method Collection Time Receive d Time (Source) Location / / Volume Laterality Blood (Blood, 12/08/2021 7:56 AM 12/09/19 22 8:07 Venous) CDT AM CDT Vladislav Zarco M.D. LAB BLOOD ADD-ON Performing Organization Address [facility] Phon e Number [facility] - [address] Miscellaneous Research, B (12/08/2021 7:56 AM CDT) athologist Signature Number of 3 12/08/2021 [facility] Specimens 7:56 AM CDT Specimen Anatomical Collection Method Collection Time Receive d Time (Source) Location / / Volume Laterality Varies (Blood, 12/08/2021 7:56 AM 022 7:56 Venous) CDT AM CDT Vladislav Zarco M.D. LAB RESEARCH NO RESULT VERENICE MCFADDEN Performing Organization Address [facility] Phon e Number [address] documented in this encounter Visit Diagnoses Diagnosis Secondary Malignant Neoplasm Liver (HCC) - Primary Malignant Neoplasm Of Pancreas (HCC) Bacteremia documented in this encounter Administered Medications Inactive Administered Medications - up to 3 most recent administrations Medication Order MAR Action Action Date Dose Rate Site heparin flush 500 Units Given 12/08/2021 8:02 AM CDT 500 Units 500 Units, intra-catheter, As needed, line care, Starting on Mon12/08/21 at 0728, When no infusion to maintain patency: For IVAD accessed, not in use, and/or prior to hospital discharge, flush every 7 days after 0.9% preservative-free NaCL flush. For IVAD NOT accessed or used, flush every 4 weeks after 0.9% preservative-free NaCL flush. sodium chloride 0.9 % injection 10 mL Given 12/08/2021 7:29 AM CDT 10 mL 10 mL, intra-catheter, As needed, line care, Starting on Mon12/08/21 at 0728, When IVAD Accessed and in Use: Flush prior to and following infusion, between multiple consecutive infusions, and prior to blood sampling. sodium chloride 0.9 % injection 20 mL Given 12/08/2021 8:01 AM CDT 20 mL 20 mL, intra-catheter, As needed, line care, Starting on Mon12/08/21 at 0728, When IVAD Accessed and in Use: Flush post blood transfusion or post blood sampling. documented in this encounter Additional Health Concerns Assessment Noted Time PHQ-9 Depression Total Score: 2 10/01/2021 10:34 AM CS T documented as of this encounter Care Teams Club Room Attendant Relationship Specialty Start Date End Date Elsewhere, Pcp PCP - General Family Medicine 08/12/20 documented as of this encounter
--- OUTSIDE RECORDS SUMMARY | 2022-06-18 16:04 | XMS_ITS | Encounter Summary ---
:1965 Author Organization [facility] Address [address] [place] [address] Care Team Providers Name Role Phone Elsewhere, Pcp Primary Care Provider Unavailable Reason for Visit Reason Comments Med Refill Encounter Details Date Type Department Care Team Description 12/20/2021 Refill Department of Palliative Care Rashmi Lechuga M.D. Med Refill in [facility] [address] [facility] [address] [place] [address] [place] [address] [phone] Social History Tobacco Use Types Packs/Day Years [...] er 01/15/2021 How often do you attend tenriism or latter day services? 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 - 12/20/2021 2:46 PM CDT Prescription Refill Request Current Prescription Regimen: Gabapentin 300 mg, 2 capsules QHS Last strength/amount/date filled: 11/23/21 ##60 [place] [employer]IG[employer] PREPARER reviewed Prescription/amount provided today: #60 Prescription will be e-Prescribed to the following pharmacy: [facility] in [place], [place] Last appointment was in person office visit on 08/12/21 Last in-office visit if different than above: N/A Next palliative appointment is in person office visit on 01/06/22 Prescription was authorized by Ingrid Obregon CNP documented in this encounter Plan of Treatment Upcoming Encounters Date Type Specialty Care Team Description 06/22/2022 Lab Laboratory Medicine Maria Del Rosario Gomez AP RN, C.N.P., M.S. [address] [place] [phone] (Mj godoy) 06/22/2022 Infusion Oncology Maria Del Rosario Gomez APRN, C.N .P., M.S. [address] [place] [phone] (Mj godoy) 06/29/2022 Lab Laboratory Medicine Maria Del Rosario Gomez AP RN, C.N.P., M.S. [address] [place] [phone] (Mj godoy) 06/29/2022 Infusion Oncology Maria Del Rosario Gomez APRN, C.N .P., M.S. [address] [place] [phone] (Mj godoy) documented as of this encounter Visit Diagnoses Not on filedocumented in this encounter Additional Health Concerns Assessment Noted Time PHQ-9 Depression Total Score: 2 10/01/2021 10:34 AM CS T documented as of this encounter Care Teams Teacher Lip Reading Relationship Specialty Start Date End Date Elsewhere, Pcp PCP - General Family Medicine 08/12/20 documented as of this encounter
--- OUTSIDE RECORDS SUMMARY | 2022-06-18 16:04 | XMS_ITS | Encounter Summary ---
:1965 Author Organization [facility] Address [address] [place] [address] Care Team Providers Name Role Phone Elsewhere, Pcp Primary Care Provider Unavailable Reason for Visit Reason Comments Intake Assessment Encounter Details Date Type Department Care Team Description 12/03/2021 Clinical Communication Department of Baldemar Gomez [facility] in Maria Del Rosario Sanchez APRN [place], CRiazN.PRiaz, M.S. [place] [address] [address] [facility] [address] [place] [address] [phone] Social History Tobacco Use Types Packs/Day Years [...] er 01/15/2021 How often do you attend holiness or judaism services? 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 [address] [place] [phone] (Mj godoy) 06/22/2022 Infusion Oncology Maria Del Rosario Gomez APRN, C.N .P., M.S. [address] [place] [phone] (Mj godoy) 06/29/2022 Lab Laboratory Medicine Maria Del Rosario Gomez AP RN, C.N.P., M.S. [address] [place] [phone] (Mj godoy) 06/29/2022 Infusion Oncology Maria Del Rosario Gomez APRN, C.N .P., M.S. [address] [place] [phone] (Mj godoy) documented as of this encounter Visit Diagnoses Not on filedocumented in this encounter Additional Health Concerns Assessment Noted Time PHQ-9 Depression Total Score: 2 10/01/2021 10:34 AM CS T documented as of this encounter Care Teams Supervisor Instrument Repair Relationship Specialty Start Date End Date Elsewhere, Pcp PCP - General Family Medicine 08/12/20 documented as of this encounter
--- OUTSIDE RECORDS SUMMARY | 2022-06-18 16:04 | XMS_ITS | Encounter Summary ---
:1965 Author Organization [facility] Address [address] [place] [address] Care Team Providers Name Role Phone Elsewhere, Pcp Primary Care Provider Unavailable Reason for Visit Reason Comments Pre-visit Intake Encounter Details Date Type Department Care Team Description 01/03/2022 Clinical Communication Visit Review in Pr e-visit Intake [place], [place] [address] [place], [place] [phone] Social History Tobacco Use Types Packs/Day Years [...] er 01/15/2021 How often do you attend christianity or latter-day services? 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 [address] [place] [phone] (Mj godoy) 06/22/2022 Infusion Oncology Maria Del Rosario Gomez APRN, C.N .P., M.S. [address] [place] [phone] (Mj godoy) 06/29/2022 Lab Laboratory Medicine Maria Del Rosario Gomez AP RN, C.N.P., M.S. [address] [place] [phone] (Mj godoy) 06/29/2022 Infusion Oncology Maria Del Rosario Gomez APRN, C.N .P., M.S. [address] [place] [phone] (Mj godoy) documented as of this encounter Visit Diagnoses Not on filedocumented in this encounter Additional Health Concerns Assessment Noted Time PHQ-9 Depression Total Score: 2 10/01/2021 10:34 AM CS T documented as of this encounter Care Teams Pens And Pencils Dipper Relationship Specialty Start Date End Date Elsewhere, Pcp PCP - General Family Medicine 08/12/20 documented as of this encounter
--- OUTSIDE RECORDS SUMMARY | 2022-06-18 16:04 | XMS_ITS | Encounter Summary ---
:1965 Author Organization [facility] Address [address] [place] [id number] Care Team Providers Name Role Phone Elsewhere, Pcp Primary Care Provider Unavailable Reason for Referral Outpatient (Routine) - Authorized Specialty Diagnoses / Procedures Referred By Contact Refer red To Contact Palliative Medicine Alyssa Gonzalez Roches [facility] Chanelle, M.S. [address] [place] [phone] Referral ID Status Reason Start Date Expiration Date Visits V isits Requested Authorized [id number] Authorized 01/06/2022 01/06/2023 1 1 Scheduling Instructions 2 months, to coordinate with visit in [facility] if possible Reason for Visit Outpatient (Routine) - Closed Specialty Diagnoses / Procedures Referred By Contact Refer red To Contact Palliative Medicine Yamileth Hermosillo B.M.B.C [facility] [address] [place] [phone] Referral ID Status Reason Start Date Expiration Date Visits Requ ested Visits Authorized [id number] Closed 08/12/2021 08/12/2022 1 1 Encounter Details Date Type Department Care Team Description 01/06/2022 Office Visit Department of Yamileth Hermosillo B.M .B.[facility] [address] [place] [phone] Malignant Neoplasm Of Pancreas (HCC) (Surekha gutierrez Dx); Palliative Care in Alyssa Gonzalez M.D., M.S. 200 [place] [phone] Secondary Malignant Neoplasm Liver (HCC) ; [place], [place] Pain Cancer Associated; 200 [facility] Pain Neuropathic; [place], [place] Anxiety; [phone] Palliative Care [phone] Social History Tobacco Use Types Packs/Day Years [...] How often do you attend mandaeism or spiritism services? 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 - 01/06/2022 8:30 AM CDT SUBJECTIVE CHIEF COMPLAINT/REASON FOR VISIT Adam Campbell is a 56 y.o. male with metastatic pancreatic adenocarcinoma who is followed in the outpatient Palliative Care Clinic for non-pain symptoms and pain. Interval History: Mr. Campbell was last seen in Palliative Care clinic in 08/2021, at which time symptoms of abdominal discomfort/pain and bilateral lower extremity neuropathy were discussed. Since this visit, he reports he has been doing relatively well, although these symptoms are still ongoing. His abdominal pain is primarily located in the left lower quadrant, described as an intermittent cramping associated with gas, often occurring upon waking in the morning and in association with dietary changes and adjusting Creon dosing accordingly. He previously took half tablets of hydromorphone (2 mg) once daily in the morning for this pain, but more recently over the last several weeks to months, he has been taking the full tablet (4mg) dose due to worsening of this pain. He describes intermittent anxiety related to this pain, in particular he worries his cancer has progressed when the pain changes in character or severity. This seems to be worsening as well and at times does contribute to difficulty falling asleep. In the past, he has had intermittent issues with constipation; this is improved more recently, although this week has recurred. His neuropathy of the lower extremities is most severe at night and tolerable during the day; he is currently happy with his regimen of gabapentin 600 mg QHS. Following chemothe rapy and steroids, he experiences worsening insomnia (improved with trazodone), nausea (currently well managed with current zofran regimen) as well as neuropathy, all of which last several days and then lessen in severity. He uses medical cannabis primarily in the evenings to assist with appetite and sleep. He is currently remaining quite active and just returned from a trip to [place] to visit his daughterduring which time he was able to hike with family. ROS: As per HPI and patient reported data otherwise reviewed and non-contributory in the course of the current encounter. Stanton Scores Who completed this form?: Patient No Pain = 0 and Worst Pain = 10: 6 No Fatigue = 0 and Worst Fatigue = 10: 1 No Nausea = 0 and Worst Nausea = 10: 1 No Depression = 0 and Worst Depression = 10: 2 No Anxiety = 0 and Worst Anxiety = 10: 2 No Drowsiness = 0 and Worst Drowsiness = 10 : 0 No Shortness of Breath = 0 and Worst Shortness of Breath = 10: 0 Best Appetite = 0 and Worst Appetite = 10: 4 Best Feeling of Well Being = 0 and Worst Feeling of Well Being = 10: 2 Best Sleep = 0 and Worst Sleep = 10: 3 No Financial Distress (Distress/suffering experienced secondary to financial issues) = 0 and Worst Financial Distress = 10: 0 No Spiritual Pain (Pain deep in your soul/being that is not physical) = 0 and Worst Spiritual Pain =10: 2 Palliative Functional Assessment 80%- Full ambulation, Normal activity with effort and some evidence of disease, Full self-care, Normal or reduced intake, Full level of consciousness NCCN Distress Thermometer Thermometer distress score (0 = no distress, 10 = extreme distress): 1 Practical problems: NCCN Distress - practical: none Family problems: NCCN Distress- Family: none Emotional problems: NCCN Distress- emotional: nervousness and sadness Spiritual/spiritism concerns: no OBJECTIVE PHYSICAL EXAM Temperature: [36.6 ??C] 36.6 ??C Blood Pressure: (104)/(65) 104/65 SpO2: [98 %] 98 % Pulse Rate: [71] 71 Physical Exam General: Appears comfortable, in no apparent pain or acute distress Eyes: Conjunctiva clear, sclera non-icteric Lungs: No use of accessory muscles of respiration, non-labored breathing pattern, on room air. Musculoskeletal: Normal gait, ambulating unassisted. Moving all extremities normally. Psychiatric: Oriented X3, intact recent and remote memory, judgment and insight, flat affect congruent with mood DIAGNOSTICS Labs and imaging obtained today. ASSESSMENT / PLAN #1 Malignant Neoplasm Of Pancreas (HCC) Adam Campbell is a 56 y.o. male with metastatic pancreatic adenocarcinoma currently being treated on research study. He is being followed in the outpatient Palliative Care Clinic for non-pain symptoms and pain. Overall, he has been doing well and recent scans/labs from today are relatively stable. He continues to experience symptoms as listed in further detail below, but he is reluctant to makesignificant changes to his medication regimen and prefers to keep the medication list as simplified as possible. Though there has been some worsening in the pain and anxiety over the last several months, symptoms are tolerable on current regimen at this time. Medication refills were provided today; further details of our discussion as listed below. RECOMMENDATIONS Pain: #Abdominal pain #Neuropathy (BLEs) #History of low back pain (resolved) ?? Currently gabapentin 600 mg QHS and hydromorphone 2-4 mg once daily ?? In the past, he was worried about taking the full hydromorphone tablet to fear of opioid dependence, although more frequently he is taking the full tablet (4 mg) dose. This, along with titrating Creon dosing according to meals, do improve his pain. No changes at this time to opiate regimen. Refilled today. ?? We discussed that his neuropathy worsens following chemotherapy and potentially addressing this with adding lower doses of gabapentin during the day. He is not interested at this time. Previously there was concern expressed with feeling fatigued following gabapentin, and today he feels since symptoms are most severe in the evening that he would prefer to stick with just a nightly dose for now. ?? Additionally discussed initiating duloxetine to address both neuropathy and anxiety; patient uninterested at this time but expresses he will let us know in the future if these symptoms are worseningfor potential reconsideration of this Opioid Summary ??? Opioid Need: This patient has a condition that necessitates treatment with an opioid for longer than 7 days. Additionally, a non-opioid alternative was not appropriate or inadequate to manage patient???s pain. ??? Diagnosis related to controlled substance prescribing: cancer associated pain ??? [place] HIGH HEEL BUILDER Review: We have reviewed the patient's record in the [place] prescription monitoring program January 06, 2022. Please see Dr. Gonzalez's accompanying documentation. ??? Opioid Toxicity Review: We have reviewed the risks of opioid therapy and completed an assessmentof toxicities. ??? Opioid Aberrant Use Concerns: None ??? Recommended Opioid Regimen as of January 06, 2022.: Hydromorphone 2-4 mg, up to every 6 hours prn ??? Current Oral Morphine Equivalents (OME/MME): up to 64/day, on average 16 OME daily ??? Methadone EKG monitoring: n/a ??? Urine drug screen not obtained today. Last obtained: No results found for this or any previous visit. Opioid Risk Score: Last Opioid Risk Tool charting Flowsheet Row Office Visit from 05/14/2021 in Department of Palliative Care in [place], [place] ORT Total Score (max 26) 0 Bowels: #Constipation #Diarrhea following chemotherapy ?? Historically constipation has been an issue for him and there was a thought that possibly this was contributing to abdominal pain. Constipation has been occurring this week. Per patient it seems to be related to diet. He is anticipating developing diarrhea following upcoming chemotherapy. No changes to bowel regimen for now. Plan to check in at next visit and consider this as a possible contributor to worsening pain. Nausea/Vomiting: ?? He does experience nausea and occasional vomiting following chemotherapy. Reports currently this is controlled with ondansetron 8 mg tablet q8 hours PRN. He has ODT tablets at home as well which he uses very sparingly and saves for times when he is imminently going to vomit. ?? Compazine allergy ?? No need for additional anti-emetics at this time. Refilled ondansetron tablets today. Anxiety: ?? Current desire to keep medication regimen as simple as possible, Duloxetine to address both anxiety and neuropathy was introduced to him and he was not interested in exploring this now. ?? Previous Rx for Ativan has been helpful. He takes this currently not more than once/weekly. Refilled this today and advised that he get in touch if he starts to require more frequent doses for anxiety to revisit discussion about duloxetine. ?? The option of additional psychosocial support was introduced briefly. He does not currently have an interest in this at this time. Difficulty sleeping: ?? Occurring secondary to anxiety and steroids received with chemotherapy. ?? Refilled trazodone 50 mg tablets today Decreased appetite: ?? Medical cannabis has been helpful with this for him, currently taking the yellow, vaping ?? Counseled to avoid driving following use; he normally only uses this at home in the evenings Advance Care Planning: Surrogate decision maker: , Shaniqua Campbell Thank you for the opportunity to see this patient. Patient has our contact information and understands to call with new/worsening symptoms or concerns. We will work alongside the primary outpatient team to address these issues. Palliative care outpatient clinic will continue to follow along. Follow up visit: provider 1 month (approximate, recommend timing with next oncology visits), clinic visit I have reviewed the patients case and plan of care with data governance consultant, Dr. Alyssa Gonzalez. Please see accompanying documentation for further details. Electronically signed by: Nikki Nathan M.D. 01/06/22 11:43 AM CDT Alyssa Gonzalez M.D., M.S. - 01/06/2022 8:30 AM CDT [facility] Palliative Medicine Resident Physician Attestation Adam Campbell is a 56 year-old man with Stage IV pancreatic adenocarcinoma who is seen in the Palliative Medicine clinic for pain and non-pain symptoms. Mr. Campbell feels that overall, he is doing well. He is appreciative that the clinical trial has been effective. Feels that neuropathy and anxiety have been manageable, although notes that both have beenincreasing lately. The neuropathy is particularly severe the week after treatment. I am concerned that some of his symptoms are not ideally managed at present which I discussed; Mr. Campbell would like to avoid making any changes to medications, particularly with the clinical trial. Encouraged him that if these symptoms are worsening to the point he would be interested in another medication to notify our clinic. Specifically, I would consider adding duloxetine for both neuropathy and anxiety. Otherwise, will plan to check in ~2 months. Continue current gabapentin 600mg qhs dose. I have seen and evaluated the patient along with the resident physician, Dr. Nathan. I have reviewedthe pertinent history. I discussed the impression and plan with the resident. I agree with the history, examination, impression, and recommendations as documented in today's note from the resident except as documented. Alyssa Gonzalez M.D., M.S. Inventory Administratorfish grader [facility] documented in this encounter Plan of Treatment Upcoming Encounters Date Type Specialty Care Team Description 06/22/2022 Lab Laboratory Medicine Maria Del Rosario Gomez AP RN, C.N.P., M.S. [address] [place] [phone] (Mj godoy) 06/22/2022 Infusion Oncology Maria Del Rosario Gomez APRN, C.N .P., M.S. [address] [place], [place] [phone] (Mj godoy) 06/29/2022 [facility] [address] [place], [place] [phone] (Wo rk) 06/29/2022 [facility] M.S. [address] [place], [place] [phone] (Mj rk) Scheduled Referrals Name Type Priority Associated Order Schedule Diagnoses Palliative Care Outpatient Referral Routine Expec sally: office visit 02/05/2022 (clinic) (Approximate), Expires: 04/07/2023 documented as of this encounter Visit Diagnoses Diagnosis Malignant Neoplasm Of Pancreas (HCC) - P rimary Secondary Malignant Neoplasm Liver (HCC) Pain Cancer Associated Pain Neuropathic Anxiety Palliative Care documented in this encounter Additional Health Concerns Assessment Noted Time PHQ-9 Depression Total Score: 2 10/01/2021 10:34 AM CS T documented as of this encounter Care Teams Float Tender Relationship Specialty Start Date End Date Elsewhere, Pcp PCP - General Family Medicine 08/12/20 documented as of this encounter
--- OUTSIDE RECORDS SUMMARY | 2022-06-18 16:04 | XMS_ITS | Encounter Summary ---
:1965 Author Organization [facility] Address [address] [place] [phone] Care Team Providers Name Role Phone Elsewhere, Pcp Primary Care Provider Unavailable Reason for Visit Episode Based Medications (Routine) - Closed Specialty Diagnoses / Procedures Referred By Contact Refer red To Contact Diagnoses Malignant Neoplasm Of Pancreas (HCC) Secondary Malignant Neoplasm Liver (HCC) Medication Therapy Senior Living Not Anticoagulant Jesse Perkins, [facility] Procedures DC ONDANSETRON HCL INJECTION DC LEUCOVORIN CALCIUM INJECTION DC INJ IRINOTECAN LIPOSOME 1 MG DC FLUOROURACIL INJECTION P.A.-C., M.S. [address] [place] [address] [place] [phone] Referral ID Status Reason Start Date Expiration Date Visits Requ ested Visits Authorized [id number] Closed 08/27/2021 08/27/2022 36 36 Encounter Details Date Type Department Care Team Description 12/08/2021 Office Visit Department of Oncology Maria Del Rosario Gomez Se Malignant Neoplasm Liver (HCC) (Primary Dx); in [facility], GRANT COORDINATOR, C.N.P., Malignant Neoplasm Of Pancreas (HCC) [facility] [address] [place] [address] [place] [phone] Social History Tobacco Use Types Packs/Day Years [...] How often do you attend muslim or pentecostal services? 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 - 12/08/2021 9:30 AM CDT SUBJECTIVE PRIMARY CARE PHYSICIAN ELSEWHERE, PCP LOCAL ONCOLOGIST No care steamer blocker to display PRIMARY FOSTER ONCOLOGIST Deborah Murray M.B.B.S. Maria Del Rosario Gomez APRN, C.N.P., M.S. CHIEF COMPLAINT / REASON FOR VISIT Adam Campbell is a 56 y.o. male who presents for evaluation while on treatment with a clinicalstudy for diagnosis of metastatic pancreatic adenocarcinoma. Cancer Staging Malignant Neoplasm [...] (01/25/2021 - 03/02/2021) Site: Pancreas Technique: 3D RECORD CENTER COORDINATOR Goal: Curative Planned Treatment Start Date: 01/25/2021 01/25/2021 - 03/01/2021 Chemotherapy Gemcitabine ( with Radiation ) Start Date: 01/25/2021 08/13/2021 Genetic Testing and Tumor Genotyping [facility] pancreas panel negative 08/18/2021 - Research Study Participant Research Study: A Study to Analyze Onvansertib Treatment in Patients with Metastatic Pancreatic Ductal Adenocarcinoma ([id number]) Treatment Protocol: [facility] CRDF-001 ( Onvansertib (Days 1-5) / Fluorouracil / Leucovorin / Nanoliposomal Irinotecan ) 08/27/2021 - 11/11/2021 Research Study Participant Research Study: A Study to Analyze Onvansertib Treatment in Patients with Metastatic Pancreatic Ductal Adenocarcinoma ([id number]) Treatment Protocol: [facility] CRDF-001 ( Onvansertib (Days 1-10) / Fluorouracil / Leucovorin / Nanoliposomal Irinotecan ) Interval History Mr. Campbell states that he has been feeling well with the adjustments made in his chemotherapy regimen. Reports that instead of being sick for the whole 2 weeks he has only feels unwell for a day and a half. He does occasionally have diarrhea during that time. Otherwise feeling well. He states that thelast 4-5 days have been the best he has had in quite some time. He does note that the mouth is sensitive to spicy food. He does have some lower extremity neuropathy that he thinks is slowly improving. He denies chest pain, shortness of breath, lower extremity edema, elevated temperature or night sweats. The following portions of the patient's history were reviewed and updated as appropriate: allergies,current medications, family history, medical history, social history, surgical history and problem list. CURRENT MEDICATIONS Current Outpatient Medications on File Prior to Visit Medication Sig Dispense Refill ??? gabapentin (NEURONTIN) 300 mg capsule TAKE 2 CAPSULES(600 MG) BY MOUTH AT BEDTIME 60 capsule 1 ??? HYDROmorphone (DILAUDID) 4 mg tablet Take 0.5-1 tablets (2-4 mg total) by mouth every 6 (six) hours as needed for pain Indication: Chronic Pain/Nonacute Pain. 60 tablet 0 ??? jagbyo-uwfjctmv-ojyapsa (Creon) 24,000-76,000-120,[address] capsule Take 2 capsules by mouth as directed. 2 capsules with meals and 1-2 capsules with snacks. 240 capsule 3 ??? medical cannabis capsule Take by mouth. THC component: CBD component: ??? ondansetron (ZOFRAN) 8 mg tablet Take 1 tablet (8 mg total) by mouth every 8 (eight) hours as needed for nausea or vomiting. 30 tablet 3 ??? ondansetron ODT (ZOFRAN-ODT) 8 mg disintegrating tablet Take 1 tablet (8 mg total) by mouth every 8 (eight) hours as needed for nausea or vomiting. 20 tablet 1 ??? pantoprazole (PROTONIX) 40 mg EC tablet [...] increase to 100 mg daily at bedtime. (Patient taking differently: Take 50 mg by mouth at bedtime. Take 50 mg daily at bedtime for at least 7 days. If ineffective, may trial increase to 100 mg daily at bedtime.) 30 tablet 0 No current facility-administered medications on file prior to visit. REVIEW OF SYSTEMS REVIEW OF SYSTEMS OBJECTIVE BP 112/76 (BP Location: Right arm, Patient Position: Sitting, Cuff Size: Regular) Pulse 73 Temp 36.3 ??C (Tympanic) Resp 16 Ht 176.5 cm Wt 76.5 kg SpO2 98% BMI 24.56 kg/m?? PHYSICAL EXAMINATION General: Well appearing 56 y.o. who is in no apparent distress. Appears to be at ECOG performance status 0 Skin: Non-jaundice. No rashes. Eyes: No scleral icterus Lymph: No palpable cervical, submandibular, or supraclavicular lymphadenopathy Heart: Regular, rate and rhythm. No murmurs, rubs or gallops Lungs: Clear to auscultation bilaterally Abdomen: Soft, nontender, nondistended. Normoactive bowel sounds. No hepatomegaly. Extremities: No edema Neuro: Alert and oriented x 3. Calm interactive and appropriate. No focal neuro deficits. LABORATORY DATA Lab data reviewed. ASSESSMENT / PLAN #1 Secondary Malignant Neoplasm Liver (HCC) #2 Malignant Neoplasm Of Pancreas (HCC) Prior to meeting with Mr. Campbell I had the opportunity to review his past medical records and laboratory tests. At this time it appears that he is tolerating therapy well will proceed with his next cycle of treatment. We will not change any of his a treatment. I will see him back as per study protocol.He denies any further questions or concerns. He is in full agreement with the plan. Has our telephone number to contact us should they have any further questions or concerns. PATIENT EDUCATION Ready to learn, no apparent learning barriers were identified; learning preferences include listening. Explained diagnosis and treatment plan; patient expressed understanding of the content. ADMINISTRATIVE BILLING I personally spent 41 minutes in care of the patient today. Time includes both non face to face and face to face patient care. documented in this encounter Plan of Treatment Upcoming Encounters Date Type Specialty Care Team Description 06/22/2022 Lab Laboratory Medicine Maria Del Rosario Gomez AP RN, C.N.P., M.S. [address] [place] [phone] (Mj godoy) 06/22/2022 Infusion Oncology Maria Del Rosario Gomez APRN, C.N .P., M.S. [address] [place] [phone] (Mj godoy) 06/29/2022 Lab Laboratory Medicine Maria Del Rosario Gomez AP RN, C.N.P., M.S. [address] [place] [phone] (Mj godoy) 06/29/2022 Infusion Oncology Maria Del Rosario Gomez APRN, C.N .P., M.S. [address] [place] [phone] (Mj godoy) documented as of this encounter Visit Diagnoses Diagnosis Secondary Malignant Neoplasm Liver (HCC) - Primary Malignant Neoplasm Of Pancreas (HCC) documented in this encounter Additional Health Concerns Assessment Noted Time PHQ-9 Depression Total Score: 2 10/01/2021 10:34 AM CS T documented as of this encounter Care Teams Associate Engineer Relationship Specialty Start Date End Date Elsewhere, Pcp PCP - General Family Medicine 08/12/20 documented as of this encounter
--- OUTSIDE RECORDS SUMMARY | 2022-06-18 16:04 | XMS_ITS | Encounter Summary ---
:1965 Author Organization [facility] Address [address] [place] [address] Care Team Providers Name Role Phone Elsewhere, Pcp Primary Care Provider Unavailable Encounter Details Date Type Department Care Team Description 01/04/2022 Orders Only Department of Oncology in Shawn Coreen Remy [place], [place] [address] [place] [address] Social History Tobacco Use Types Packs/Day [...] How often do you attend hoahaoism or tenriism services? 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 [address] [place] [address] [phone] (Mj godoy) 06/22/2022 Infusion Oncology Maria Del Rosario Gomez APRN, C.N .P., M.S. [address] [place] [address] [phone] (Mj godoy) 06/29/2022 Lab Laboratory Medicine Maria Del Rosario Gomez AP RN, C.N.P., M.S. [address] [place] [address] [phone] (Mj godoy) 06/29/2022 Infusion Oncology Maria Del Rosario Gomez APRN, C.N .P., M.S. [address] [place] [address] [phone] (Mj godoy) documented as of this encounter Visit Diagnoses Not on filedocumented in this encounter Additional Health Concerns Assessment Noted Time PHQ-9 Depression Total Score: 2 10/01/2021 10:34 AM CS T documented as of this encounter Care Teams Powder Guard Relationship Specialty Start Date End Date Elsewhere, Pcp PCP - General Family Medicine 08/12/20 documented as of this encounter
--- OUTSIDE RECORDS SUMMARY | 2022-06-18 16:04 | XMS_ITS | Encounter Summary ---
:1965 Author Organization [facility] Address [address] [place] [address] Care Team Providers Name Role Phone Elsewhere, Pcp Primary Care Provider Unavailable Encounter Details Date Type Department Care Team Description 11/24/2021 Orders Only Department of Oncology in Carmel Moreno M.D. [place], [place] [address] [facility] [address] [place] [id number] [phone] (Wo rk) Social History Tobacco Use Types [...] How often do you attend bahai or hoahaoism services? 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 [address] [place] [address] [phone] (Wo rk) 06/22/2022 Infusion Oncology Maria Del Rosario Gomez APRN, C.N .P., M.S. [address] [place] [address] [phone] (Wo rk) 06/29/2022 Lab Laboratory Medicine Maria Del Rosario Gomez AP RN, C.N.P., M.S. [address] [place] [address] [phone] (Wo rk) 06/29/2022 Infusion Oncology Maria Del Rosario Gomez APRN, C.N .P., M.S. [address] [place] [address] [phone] (Wo rk) documented as of this encounter Visit Diagnoses Not on filedocumented in this encounter Additional Health Concerns Assessment Noted Time PHQ-9 Depression Total Score: 2 10/01/2021 10:34 AM CS T documented as of this encounter Care Teams Program Facilitator Relationship Specialty Start Date End Date Elsewhere, Pcp PCP - General Family Medicine 08/12/20 documented as of this encounter
--- OUTSIDE RECORDS SUMMARY | 2022-06-18 16:04 | XMS_ITS | Encounter Summary ---
:1965 Author Organization [facility] Address [address] [place] [address] Care Team Providers Name Role Phone Elsewhere, Pcp Primary Care Provider Unavailable Encounter Details Date Type Department Care Team Description 12/09/2021 Clinical Communication Department of [facility] On[facility] in Cipriano Peterson [place], [place] [address] [facility] [address] [place] [phone] Social History Tobacco Use Types Packs/Day Years [...] How often do you attend episcopal or episcopal services? 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 - 12/09/2021 2:18 PM CDT SUBJECTIVE CHIEF COMPLAINT / REASON FOR CALL No chief complaint on file. PLAN The following information was provided: I called Mr. Campbell. He has a Palliative Medicine Visit scheduled for tomorrow, 12/10, and wanted to clarify if he was planning to keep this appointment, or move out. He clarified that he does want to move out to coincide to his next chemotherapy visit, which is 12/22. He is concerned about travel tomorrow with the weather and slippery roads. I will work to accommodate this. Information/Education: patient/caller able to teach back The following references were used: nursing clinical judgement documented in this encounter Plan of Treatment Upcoming Encounters Date Type Specialty Care Team Description 06/22/2022 Lab Laboratory Medicine Maria Del Rosario Gomez AP RN, C.N.P., M.S. [address] [place] [address] [phone] (Mj godoy) 06/22/2022 Infusion Oncology Maria Del Rosario Gomez APRN, C.N .P., M.S. [address] [place] [address] [phone] (Mj rk) 06/29/2022 Lab Laboratory Medicine Maria Del Rosario Gomez AP RN, C.N.P., M.S. [address] [place] [address] [phone] (Mj rk) 06/29/2022 Infusion Oncology Maria Del Rosario Gomez APRN, C.N .P., M.S. [address] [place] [address] [phone] (Mj rk) documented as of this encounter Visit Diagnoses Not on filedocumented in this encounter Additional Health Concerns Assessment Noted Time PHQ-9 Depression Total Score: 2 10/01/2021 10:34 AM CS T documented as of this encounter Care Teams Audio Experience Expert Relationship Specialty Start Date End Date Elsewhere, Pcp PCP - General Family Medicine 08/12/20 documented as of this encounter
--- OUTSIDE RECORDS SUMMARY | 2022-06-18 16:04 | XMS_ITS | Encounter Summary ---
:1965 Author Organization [facility] Address [address] [place] [id number] Care Team Providers Name Role Phone Elsewhere, Pcp Primary Care Provider Unavailable Reason for Referral Outpatient (Routine) Specialty Diagnoses / Procedures Referred By Contact Refer red To Contact Oncology RST [address] [phone] Referral ID Status Reason Start Date Expiration Date Visits Requ ested Visits Authorized utpatient (Routine) Specialty Diagnoses / Procedures Referred By Contact Refer red To Contact Oncology RST [address] [phone] Referral ID Status Reason Start Date Expiration Date Visits Requ ested Visits Authorized utpatient (Routine) Specialty Diagnoses / Procedures Referred By Contact Refer red To Contact Oncology RST [address] [phone] Referral ID Status Reason Start Date Expiration Date Visits Requ ested Visits Authorized Encounter Details Date Type Department Care Team Description 12/08/2021 Orders Only Department of Oncology Tamara Escobar Secondary Malignant Neoplasm Liver (HCC) (Primary Dx); in [place], Malignant Neop lasm Of Pancreas (HCC); [place] (Work) Medication Therapy Diamond Cutter Not Anticoagulant [address] [place] [phone] Social History Tobacco Use Types Packs/Day Years [...] How often do you attend confucianist or mosque services? 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 [address] [place] [phone] ([place] godoy) 06/22/2022 Infusion Oncology Maria Del Rosario Gomez APRN, C.N .P., M.S. [address] [place] [phone] ([place]j godoy) 06/29/2022 Lab Laboratory Medicine Maria Del Rosario Gomez AP RN, C.N.P., M.S. [address] [place] [phone] ([place]j godoy) 06/29/2022 Infusion Oncology Maria Del Rosario Gomez APRN, C.N .P., M.S. [address] [place], [place] [phone] (Wo rk) Scheduled Referrals Name Type Priority Associated Order Schedule Diagnoses Oncology office Outpatient Referral Routine Secondary Malignan t Expected: visit (clinic) Neoplasm Liver 02/07/2022, General; GIH (HCC) Expires: Pancreatic Medication Therapy 3 Diamond Cutter Not Anticoagulant Malignant Neoplasm Of Pancreas (HCC) Oncology office Outpatient Referral Routine Secondary Malignan t Expected: visit (clinic) Neoplasm Liver 02/23/2022, General; GIH (HCC) Expires: Pancreatic Medication Therapy 3 Diamond Cutter Not Anticoagulant Malignant Neoplasm Of Pancreas (HCC) Oncology office Outpatient Referral Routine Secondary Malignan t Expected: visit (clinic) Neoplasm Liver 03/09/2022, General; GIH (HCC) Expires: Pancreatic Medication Therapy 3 Diamond Cutter Not Anticoagulant Malignant Neoplasm Of Pancreas (HCC) documented as of this encounter Results (ABNORMAL) ALT (Alanine Aminotransferase) (03/08/2022 8:20 AM CDT) [facility] Method Time Signature Alanine 116 (H) 7 - 55 03/08/2022 DTL Aminotransferase U/L 9:31 AM CDT (ALT), S Specimen Anatomical Collection Method Collection Time Receive d Time (Source) Location / / Volume Laterality Blood (Blood, 03/08/2022 8:20 AM 03/08/20 22 9:05 Venous) CDT AM CDT Deborah VillaB.S. LAB BLOOD ADD-ON Performing Organization Address City/State/ZIP Code Phon e Number [facility] - 200 [place], [place] [address] [facility] [place] [address] [facility] 200 [facility] (ABNORMAL) AST (Aspartate Aminotransferase) (03/08/2022 8:20 AM CDT) [facility] Method Time Signature Aspartate 102 (H) 8 - 48 03/08/2022 METH Aminotransferase U/L 8:53 AM CDT (AST), P Specimen Anatomical Collection Method Collection Time Receive d Time (Source) Location / / Volume Laterality Blood (Blood, 03/08/2022 8:20 AM 03/08/20 22 8:30 Venous) CDT AM CDT Deborah VillaB.S. LAB BLOOD ADD-ON Performing Organization Address City/[facility] Code Phon e Number [facility] - [address] [place], [place] [address] [facility] [place], [place] [id number] [place] [address] Bilirubin, Total (03/08/2022 8:20 AM CDT) athologist Signature Bilirubin, 0.6 <=1.2 mg/dL 03/08/2022 METH Total, P 8:53 AM CDT Specimen Anatomical Collection Method Collection Time Receive d Time (Source) Location / / Volume Laterality Blood (Blood, 03/08/2022 8:20 AM 03/08/20 22 8:30 Venous) CDT AM CDT Deborah VillaB.S. LAB BLOOD ADD-ON Performing Organization Address City/[facility] Code Phon e Number [facility] - [address] [place], [place] [address] [facility] [place], [place] [phone] [place] [address] (ABNORMAL) Alkaline Phosphatase (03/08/2022 8:20 AM [...] Address City/State/ZIP Code Phon e Number [facility] - [address] [place], [place] [address] [facility] D[place] [address] [facility] Magnesium (03/08/2022 8:20 AM CDT) athologist Signature Magnesium, S 1.8 1.7 - 2.3 03/08/2022 DTL mg/dL 9:31 AM CDT Specimen Anatomical Collection Method Collection Time Receive d Time (Source) Location / / Volume Laterality Blood (Blood, 03/08/2022 8:20 AM 03/08/20 22 9:05 Venous) CDT AM CDT Deborah VillaB.S. LAB BLOOD ADD-ON Performing Organization Address City/[facility] Phon e Number [facility] - [address] [place] [address] [place], [place] [phone] [place] [address] [facility] Phosphorus Inorganic (03/08/2022 8:20 AM CDT) P athologist Signature Phosphorus 2.5 2.5 - 4.5 03/08/2022 DTL (Inorganic), S mg/dL 9:31 AM CDT Specimen Anatomical Collection Method Collection Time Receive d Time (Source) Location / / Volume Laterality Blood (Blood, 03/08/2022 8:20 AM 03/08/20 22 9:05 Venous) CDT AM CDT Deborah VillaB.S. LAB BLOOD ADD-ON Performing Organization Address City/[facility]/ZIP Code Phon e Number [facility] - [address], [place] [address] [place] [phone] [place] [address] (ABNORMAL) Albumin (03/08/2022 8:20 AM CDT) P athologist Signature Albumin, S 3.4 (L) 3.5 - 5.0 03/08/2022 DTL g/dL 9:31 AM CDT Specimen Anatomical Collection Method Collection Time Receive d Time (Source) Location / / Volume Laterality Blood (Blood, 03/08/2022 8:20 AM 03/08/20 22 9:05 Venous) CDT AM CDT Deborah VillaB.S. LAB BLOOD ADD-ON Performing Organization Address City/State/ZIP Code Phon e Number [facility] - [address] [place] [address] [place] [address] (ABNORMAL) Basic Metabolic Panel (03/08/2022 8:20 [...] CDT eGFR-Black/Afri >90 >=60 03/08/2022 METH can Micronesian mL/min/BSA 8:53 AM CDT Comment: ----ADDITIONAL INFORMATION---- Estimated GFR calculated using the 2009 CKD_EPI creatinine equation. eGFR Non-Black/ 90 >=60 mL/min/BSA 8:53 AM CDT METH Comment: ----ADDITIONAL INFORMATION---- Estimated GFR calculated using the 2009 CKD_EPI creatinine equation. Calcium, Total, P 8.6 8.6 - 10.0 mg/dL 03/08/2022 8:53 AM CDT METH Glucose, P 126 70 - 140 mg/dL 03/08/2022 8:53 AM CDT [facility] Specimen Anatomical Collection Method Collection Time Receive d Time (Source) Location / / Volume Laterality Blood (Blood, 03/08/2022 8:20 AM 03/08/20 8:30 Venous) CDT AM CDT Deborah VillaB.S. LAB BLOOD ADD-ON Performing Organization Address City/State/ZIP Code Phon e Number [facility] - [address] [place], [place] [address] [facility] [place] [address] [facility] [address] (ABNORMAL) CBC with Differential, Blood (03/08/2022 8:20 AM CDT) [facility] gist Method Time Signature Hemoglobin 9.9 [...] 03/08/20 8:49 Venous) CDT AM CDT Deborah RussoSRiaz LAB BLOOD ADD-ON Performing Organization Address City/State/ZIP Code Phon e Number [facility] - [address] [place], [place] [address] [place] [address] [facility] 200 [facility] (ABNORMAL) ALT (Alanine Aminotransferase) (02/22/2022 6:50 AM CDT) [facility] Method Time Signature Alanine 95 (H) 7 - 55 02/22/2022 DTL Aminotransferase U/L 7:47 AM CDT (ALT), S Specimen Anatomical Collection Method Collection Time Receive d Time (Source) Location / / Volume Laterality Blood (Blood, 02/22/2022 6:50 AM 02/23/20 22 7:23 Venous) CDT AM CDT Deborah VillaB.S. LAB BLOOD ADD-ON Performing Organization Address City/[facility] Phon e Number [facility] - [phone] [place] [address] (ABNORMAL) AST (Aspartate Aminotransferase) (02/22/2022 6:50 AM CDT) [facility] Method Time Signature Aspartate 69 (H) 8 - 48 02/22/2022 METH Aminotransferase U/L 7:15 AM CDT (AST), P Specimen Anatomical Collection Method Collection Time Receive d Time (Source) Location / / Volume Laterality Blood (Blood, 02/22/2022 6:50 AM 02/23/20 22 6:55 Venous) CDT AM CDT Deborah VillaB.S. LAB BLOOD ADD-ON Performing Organization Address City/State/ZIP Code Phon e Number [facility] - 200 [place] [phone] [facility] [place] [address] Bilirubin, Total (02/22/2022 6:50 AM CDT) P athologist Signature Bilirubin, 0.6 <=1.2 mg/dL 02/22/2022 METH Total, P 7:15 AM CDT Specimen Anatomical Collection Method Collection Time Receive d Time (Source) Location / / Volume Laterality Blood (Blood, 02/22/2022 6:50 AM 02/23/20 22 6:55 Venous) CDT AM CDT Deborah Wee Ma M.B.B.S. LAB BLOOD ADD-ON Performing Organization Address City/[facility] Phon e Number [facility] - [address] [place], [place] [address] [facility] [place] [address] (ABNORMAL) Alkaline Phosphatase (02/22/2022 6:50 AM CDT) P athologist Signature Alkaline 438 (H) 40 - 129 02/22/2022 DTL Phosphatase, S U/L 7:47 AM CDT Specimen Anatomical Collection Method Collection Time Receive d Time (Source) Location / / Volume Laterality Blood (Blood, 02/22/2022 6:50 AM 02/23/20 22 7:23 Venous) CDT AM CDT Deborah VillaB.S. LAB BLOOD ADD-ON Performing Organization Address City/[facility]/ZIP Code Phon e Number [facility] - 200 [place], [place] [address] [place] [address] Magnesium (02/22/2022 6:50 AM CDT) P athologist Signature Magnesium, S 1.9 1.7 - 2.3 02/22/2022 DTL mg/dL 7:47 AM CDT Specimen Anatomical Collection Method Collection Time Receive d Time (Source) Location / / Volume Laterality Blood (Blood, 02/22/2022 6:50 AM 02/23/20 22 7:23 Venous) CDT AM CDT Deborah VillaB.S. LAB BLOOD ADD-ON Performing Organization Address City/[facility]/ZIP Code Phon e Number [facility] - [address] [address] [place] [phone] [place] [address] Phosphorus Inorganic (02/22/2022 6:50 AM CDT) P athologist Signature Phosphorus 3.1 2.5 - 4.5 02/22/2022 DTL (Inorganic), S mg/dL 7:47 AM CDT Specimen Anatomical Collection Method Collection Time Receive d Time (Source) Location / / Volume Laterality Blood (Blood, 02/22/2022 6:50 AM 02/23/20 22 7:23 Venous) CDT AM CDT Deborah VillaB.S. LAB BLOOD ADD-ON Performing Organization Address City/[facility] Phon e Number [facility] - 200 [place] [address] [place] [address] Laboratories-[address] Albumin (02/22/2022 6:50 AM CDT) athologist Signature Albumin, S 3.7 3.5 - 5.0 02/22/2022 DTL g/dL 7:47 AM CDT Specimen Anatomical Collection Method Collection Time Receive d Time (Source) Location / / Volume Laterality Blood (Blood, 02/22/2022 6:50 AM 02/23/20 22 7:23 Venous) CDT AM CDT Deborah VillaB.S. LAB BLOOD ADD-ON Performing Organization Address City/[facility] Phon e Number [facility] - [phone] [place] [address] (ABNORMAL) Basic Metabolic Panel (02/22/2022 6:50 AM [...] CDT eGFR-Black/Afri >90 >=60 02/22/2022 METH can Micronesian mL/min/BSA 7:15 AM CDT Comment: ----ADDITIONAL INFORMATION---- [...] 02/23/20 6:55 Venous) CDT AM CDT Deborah JacquesB.B.S. LAB BLOOD ADD-ON Performing Organization Address City/State/ZIP Code Phon e Number [facility] - 200 [place], [place] [address] [facility] [place] [address] [facility] [address] [facility] (ABNORMAL) CBC with Differential, Blood (02/22/2022 6:50 AM CDT) [facility] Method Time Signature Hemoglobin 10.4 (L) 13.2 [...] Blood (Blood, 02/22/2022 6:50 AM 02/23/20 22 7:05 Venous) CDT AM CDT Deborah VillaB.S. LAB BLOOD ADD-ON Performing Organization Address City/[facility] Phon e Number [facility] - [address] Miscellaneous Research, B (02/09/2022 8:31 AM CDT) P athologist Signature Number of 3 02/09/2022 HSS Specimens 8:31 AM CDT Specimen Anatomical Collection Method Collection Time Receive d Time (Source) Location / / Volume Laterality Varies (Blood, 02/09/2022 8:31 AM 022 8:31 Venous) CDT AM CDT Deborah VillaB.S. LAB RESEARCH NO RESULT ROUTI NG Performing Organization Address City/[facility] Phon e Number [facility] - 200 [place], [place] [address] [facility] HSS [address] ALT (Alanine Aminotransferase) (02/09/2022 8:30 AM CDT) Patholo gist Method Time Signature Alanine 29 7 - 55 02/09/2022 DTL Aminotransferase U/L 9:22 AM CDT (ALT), S Specimen Anatomical Collection Method Collection Time Receive d Time (Source) Location / / Volume Laterality Blood (Blood, 02/09/2022 8:30 AM 02/10/20 22 9:04 Venous) CDT AM CDT Deborah VillaB.S. LAB BLOOD ADD-ON Performing Organization Address City/State/ZIP Code Phon e Number [facility] - [address] [place], [place] [address] [facility] [place] [address] [facility] [address] AST (Aspartate Aminotransferase) (02/09/2022 8:30 AM CDT) Patholo gist Method Time Signature Aspartate 39 8 - 48 02/09/2022 METH Aminotransferase U/L 9:31 AM CDT (AST), P Specimen Anatomical Collection Method Collection Time Receive d Time (Source) Location / / Volume Laterality Blood (Blood, 02/09/2022 8:30 AM 02/10/20 22 8:47 Venous) CDT AM CDT Deborah VillaB.S. LAB BLOOD ADD-ON Performing Organization Address City/State/ZIP Code Phon e Number [facility] - [address] [place], [place] [address] [facility] [place] [address] [facility] [address] Bilirubin, Total (02/09/2022 8:30 AM CDT) P athologist Signature Bilirubin, 0.6 <=1.2 mg/dL 02/09/2022 METH Total, P 9:31 AM CDT Specimen Anatomical Collection Method Collection Time Receive d Time (Source) Location / / Volume Laterality Blood (Blood, 02/09/2022 8:30 AM 02/10/20 22 8:47 Venous) CDT AM CDT Deborah VillaB.S. LAB BLOOD ADD-ON Performing Organization Address City/State/ZIP Code Phon e Number [facility] - [address] [place], [place] [address] [facility] [place] [address] [facility] [address] (ABNORMAL) Alkaline Phosphatase (02/09/2022 8:30 AM CDT) [...] Address City/State/ZIP Code Phon e Number [facility] - 200 [place], [place] [address] [place] [address] [facility] 200 [facility] Magnesium (02/09/2022 8:30 AM CDT) athologist Signature Magnesium, S 2.0 1.7 - 2.3 02/09/2022 DTL mg/dL 9:22 AM CDT Specimen Anatomical Collection Method Collection Time Receive d Time (Source) Location / / Volume Laterality Blood (Blood, 02/09/2022 8:30 AM 02/10/20 22 9:04 Venous) CDT AM CDT Deborah VillaB.S. LAB BLOOD ADD-ON Performing Organization Address City/[facility]/ZIP Code Phon e Number [facility] - 200 [place], [place] [address] [facility] [place] [address] [facility] 200 [facility] Phosphorus Inorganic (02/09/2022 8:30 AM CDT) athologist Signature Phosphorus 3.7 2.5 - 4.5 02/09/2022 DTL (Inorganic), S mg/dL 9:22 AM CDT Specimen Anatomical Collection Method Collection Time Receive d Time (Source) Location / / Volume Laterality Blood (Blood, 02/09/2022 8:30 AM 02/10/20 22 9:04 Venous) CDT AM CDT Deborah VillaB.S. LAB BLOOD ADD-ON Performing Organization Address City/State/ZIP Code Phon e Number [facility] - [address] [place], [place] [address] [place] [address] Albumin (02/09/2022 8:30 AM CDT) athologist Signature Albumin, S 4.0 3.5 - 5.0 02/09/2022 DTL g/dL 9:22 AM CDT Specimen Anatomical Collection Method Collection Time Receive d Time (Source) Location / / Volume Laterality Blood (Blood, 02/09/2022 8:30 AM 02/10/20 9:04 Venous) CDT AM CDT Deborah RussoSRiaz LAB BLOOD ADD-ON Performing Organization Address City/State/[facility] Phon e Number [facility] - 200 [place], [place] [address] [place] [address] Basic Metabolic Panel (02/09/2022 8:30 AM CDT) [...] CDT eGFR-Black/Afric >90 >=60 02/09/2022 METH an Micronesian mL/min/BSA 9:31 AM CDT Comment: ----ADDITIONAL INFORMATION---- [...] 02/10/20 8:47 Venous) CDT AM CDT Deborah RussoSRiaz LAB BLOOD ADD-ON Performing Organization Address City/State/ZIP Code Phon e Number [facility] - 200 [place], [place] [address] [facility] [place] [address] [facility] [address] [facility] (ABNORMAL) CBC with Differential, Blood (02/09/2022 8:30 AM CDT) [facility] gist Method Time Signature Hemoglobin 10.8 (L) [...] Blood (Blood, 02/09/2022 8:30 AM 02/10/20 22 8:50 Venous) CDT AM CDT Deborah RussoSRiaz LAB BLOOD ADD-ON Performing Organization Address City/State/[facility] Code Phon e Number [facility] - [address] [place] [address] [facility] [place] [address] [facility] [address] documented in this encounter Visit Diagnoses Diagnosis Secondary Malignant Neoplasm Liver (HCC) - Primary Malignant Neoplasm Of Pancreas (HCC) Medication Therapy Diamond Cutter Not Anticoa gulant documented in this encounter Additional Health Concerns Assessment Noted Time PHQ-9 Depression Total Score: 2 10/01/2021 10:34 AM CS T documented as of this encounter Care Teams Facilities Project Manager Relationship Specialty Start Date End Date Elsewhere, Pcp PCP - General Family Medicine 08/12/20 documented as of this encounter
--- OUTSIDE RECORDS SUMMARY | 2022-06-18 16:04 | XMS_ITS | Encounter Summary ---
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 [address] [facility] [address] [place] [phone] Referral ID Status Reason Start Date Expiration Date Visits Requ ested Visits Authorized [id number] Closed 08/27/2021 08/27/2022 36 36 Encounter Details Date Type Department Care Team Description 12/22/2021 Infusion Department of Oncology Vladislav Zarco Secondary Malignant Neoplasm Liver (HCC) (Primary Dx); in [facility] elke Pereira M.D. Malignant Neoplasm Of Pancreas (HCC); [address] [place] [address] [address] [place] [phone] (Wo rk) Social History Tobacco Use Types [...] How often do you attend episcopal or methodist services? 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 [address] [place] [phone] (Mj godoy) 06/22/2022 Infusion Oncology Maria Del Rosario Gomez APRN, C.N .P., M.S. [address] [place] [address] [phone] (Mj godoy) 06/29/2022 Lab Laboratory Medicine Maria Del Rosario Gomez AP RN, C.N.P., M.S. [address] [place] [address] [phone] (Mj godoy) 06/29/2022 Infusion Oncology Maria Del Rosario Gomez APRN, C.N .P., M.S. [address] [place] [address] [phone] (Mj godoy) documented as of this encounter Visit Diagnoses Diagnosis Secondary Malignant Neoplasm Liver (HCC) - Primary Malignant Neoplasm Of Pancreas (HCC) Bacteremia documented in this encounter Administered Medications Inactive Administered Medications - up to 3 most recent administrations Medication Order MAR Action Action Date Dose Rate Site dexAMETHasone injection 8 mg Given 12/22/2021 12:41 PM CDT 8 mg (DECADRON) 8 mg, intravenous, Once, On Mon12/22/21 at 1230, For 1 dose fluorouraciL 5,000 mg in NaCl 0.9% Given 12/22/2021 3:36 PM CDT 5,000 mg 5 mL/hr 230 mL IVPB (ADRUCIL) 5,000 mg (rounded from 4,752 mg = 2,400 mg/m2 ? 1.98 m2 Order-specific BSA), intravenous, at 5 mL/hr, Administer over 46 Hours, over 46 hours, First dose on Mon12/22/21 at 1430, For 1 dose, Continuous infusion over 46 hours immediately following Leucovorin. Dose reflects TOTAL CALCULATED DOSE to be administered via continuous infusion over the specified length of treatment. irinotecan liposomaL 86 mg in D5W New Bag 12/22/2021 1:14 PM C DT 86 mg 347 mL/hr 520 mL IVPB (ONIVYDE) 86 mg (rounded from 85.14 mg = 43 mg/m2 ? 1.98 m2 Order-specific BSA), intravenous, at 347 mL/hr, Administer over 90 Minutes, Once, On Mon12/22/21 at 1230, For 1 dose, Administer immediately following the administration of oral onvansertib. Protect from light. No in-line filter. leucovorin 800 mg in NaCl 0.9% 315 New Bag 12/22/2021 3:00 PM CDT 800 mg 630 mL/hr mL IVPB 800 mg (rounded from 792 mg = 400 mg/m2 ? 1.98 m2 Order-specific BSA), intravenous, at 630 mL/hr, Administer over 30 Minutes, Once, On Mon12/22/21 at 1400, For 1 dose, Follows irinotecan liposome. ondansetron (PF) injection 8 mg (ZOFRAN) Given 12/22/2021 12:41 PM CDT 8 mg 8 mg, intravenous, Once, On Mon12/22/21 at 1230, For 1 dose [facility] [id number] onvansertib capsule 10 Given 1:12 PM CDT 10 mg mg (PCM-075) 10 mg, oral, Once, On Mon12/22/21 at 1230, For 1 dose, This is the 5 [...] prior to liposomal irinotecan Infusion. [facility] [id number] onvansertib capsule 20 Given 1:12 PM CDT 20 mg mg (PCM-075) 20 mg, oral, Once, On Mon12/22/21 at 1230, For 1 dose, This is the 20 [...] 0.9 % injection 10 mL Given 12/22/2021 12:41 PM CDT 10 mL 10 mL, intra-catheter, As needed, line care, Starting on Mon12/22/21 at 1208, When IVAD Accessed and in Use: Flush prior to and following infusion, between multiple consecutive infusions, and prior to blood sampling. documented in this encounter Additional Health Concerns Assessment Noted Time PHQ-9 Depression Total Score: 2 10/01/2021 10:34 AM CS T documented as of this encounter Care Teams Environmental Engineering Technician Relationship Specialty Start Date End Date Elsewhere, Pcp PCP - General Family Medicine 08/12/20 documented as of this encounter
--- OUTSIDE RECORDS SUMMARY | 2022-06-18 16:04 | XMS_ITS | Encounter Summary ---
:1965 Author Organization [facility] Address [address] [place] [id number] Care Team Providers Name Role Phone Elsewhere, Pcp Primary Care Provider Unavailable Reason for Visit Episode Based Medications (Routine) - Closed Specialty Diagnoses / Procedures Referred By Contact Refer red To Contact Diagnoses Malignant Neoplasm Of Pancreas (HCC) Secondary Malignant Neoplasm Liver (HCC) Medication Therapy Conventional Machinist Not Anticoagulant Jesse Perkins R[facility] On[facility] Procedures NV ONDANSETRON HCL INJECTION NV LEUCOVORIN CALCIUM INJECTION NV INJ IRINOTECAN LIPOSOME 1 MG NV FLUOROURACIL INJECTION P.A.-C., M.S. [address] [facility] [address] [place] [phone] Referral ID Status Reason Start Date Expiration Date Visits Requ ested Visits Authorized [id number] Closed 08/27/2021 08/27/2022 36 36 Encounter Details Date Type Department Care Team Description 01/06/2022 Infusion Department of Oncology Vladislav Zarco Secondary Malignant Neoplasm Liver (HCC) (Primary Dx); in [facility] elke Pereira M.D. Malignant Neoplasm Of Pancreas (HCC); [address] [place] [address] [address] [place] [phone] (Wo rk) Social History Tobacco Use Types [...] How often do you attend quaker or latter-day services? 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 [address] [place] [phone] (Mj godoy) 06/22/2022 Infusion Oncology Maria Del Rosario Gomez APRN, C.N .P., M.S. [address] [place] [phone] (Mj godoy) 06/29/2022 Lab Laboratory Medicine Maria Del Rosario Gomez AP RN, C.N.P., M.S. [address] [place] [address] [phone] (Mj godoy) 06/29/2022 Infusion Oncology Maria Del Rosario Gomez APRN, C.N .P., M.S. [address] [place] [address] [phone] (Mj godoy) documented as of this encounter Visit Diagnoses Diagnosis Secondary Malignant Neoplasm Liver (HCC) - Primary Malignant Neoplasm Of Pancreas (HCC) Bacteremia documented in this encounter Administered Medications Inactive Administered Medications - up to 3 most recent administrations Medication Order MAR Action Action Date Dose Rate Site dexAMETHasone injection 8 mg Given 01/06/2022 2:54 PM CDT 8 mg (DECADRON) 8 mg, intravenous, Once, On Sadnra 01/06/22 at 1500, For 1 dose fluorouraciL 5,000 mg in NaCl 0.9% Given 01/06/2022 6:15 PM CDT 5,000 mg 5 mL/hr 230 mL IVPB (ADRUCIL) 5,000 mg (rounded from 4,752 mg = 2,400 mg/m2 ? 1.98 m2 Order-specific BSA), intravenous, at 5 mL/hr, Administer over 46 Hours, over 46 hours, First dose on Sandra 01/06/22 at 1700, For 1 dose, Dose reflects TOTAL CALCULATED DOSE to be administered via continuous infusion over the specified length of treatment. irinotecan liposomaL 86 mg in D5W New Bag 01/06/2022 3:57 PM C DT 86 mg 347 mL/hr 520 mL IVPB (ONIVYDE) 86 mg (rounded from 85.14 mg = 43 mg/m2 ? 1.98 m2 Order-specific BSA), intravenous, at 347 mL/hr, Administer over 90 Minutes, Once, On Sandra 01/06/22 at 1500, For 1 dose, Administer immediately following the administration of oral onvansertib. Protect from light. No in-line filter. leucovorin 800 mg in NaCl 0.9% 315 New Bag 01/06/2022 5:41 PM CDT 800 mg 630 mL/hr mL IVPB 800 mg (rounded from 792 mg = 400 mg/m2 ? 1.98 m2 Order-specific BSA), intravenous, at 630 mL/hr, Administer over 30 Minutes, Once, On Sandra 01/06/22 at 1630, For 1 dose, Follows irinotecan liposome. ondansetron (PF) injection 8 mg (ZOFRAN) Given 01/06/2022 2:52 PM CDT 8 mg 8 mg, intravenous, Once, On Sandra 01/06/22 at 1500, For 1 dose [facility] [id number] onvansertib capsule 10 Given 3:56 PM CDT 10 mg mg (PCM-075) 10 mg, oral, Once, On Sandra 01/06/22 at 1500, For 1 dose, This is the 5 [...] prior to liposomal irinotecan Infusion. [facility] IR[facility] [id number] onvansertib capsule 20 Given 3:56 PM CDT 20 mg mg (PCM-075) 20 mg, oral, Once, On Sandra 01/06/22 at 1500, For 1 dose, This is the 20 [...] 0.9 % injection 10 mL Given 01/06/2022 2:49 PM CDT 10 mL 10 mL, intravenous, As needed, line care, Starting on Sandra 01/06/22 at 0736, Implanted Vascular Access Device (IVAD) Venous Non-Valved: When no infusion to maintain patency, followed by heparin flush. Given 01/06/2022 8:23 AM CDT 10 mL documented in this encounter Additional Health Concerns Assessment Noted Time PHQ-9 Depression Total Score: 2 10/01/2021 10:34 AM CS T documented as of this encounter Care Teams Certified Ophthalmic Technician Relationship Specialty Start Date End Date Elsewhere, Pcp PCP - General Family Medicine 08/12/20 documented as of this encounter
--- OUTSIDE RECORDS SUMMARY | 2022-06-18 16:04 | XMS_ITS | Encounter Summary ---
:1965 Author Organization [facility] Address [address] [place] [address] Care Team Providers Name Role Phone Elsewhere, Pcp Primary Care Provider Unavailable Reason for Referral MRI/CAT/PET Scan (Routine) - Closed Specialty Diagnoses / Procedures Referred By Contact Refer red To Contact Radiology Diagnoses Secondary Malignant Neoplasm Liver (HCC) Malignant Neoplasm Of Pancreas (HCC) Vladislav Zarco M.D. [place] [facility] Procedures CT Abdomen Pelvis with IV Contrast MD CT ABD&PELVIS W [facility] [address] [place], [place] [phone] Referral ID Status Reason Start Date Expiration Date Visits Requ ested Visits Authorized [id number] Closed 10/21/2021 10/21/2022 1 1 MRI/CAT/PET Scan (Routine) - Closed Specialty Diagnoses / Procedures Referred By Contact Refer red To Contact Radiology Diagnoses Secondary Malignant Neoplasm Liver (HCC) Malignant Neoplasm Of Pancreas (HCC) Vladislav Zarco M.D. [place] [facility] Procedures CT Chest with IV Contrast MD CT THORAX W [facility]ST [address] [place], [place] [address] Referral ID Status Reason Start Date Expiration Date Visits Requ ested Visits Authorized [id number] Closed 10/21/2021 10/21/2022 1 1 Reason for Visit MRI/CAT/PET Scan (Routine) - Closed Specialty Diagnoses / Procedures Referred By Contact Refer red To Contact Radiology Diagnoses Secondary Malignant Neoplasm Liver (HCC) Malignant Neoplasm Of Pancreas (HCC) Vladislav Zarco M.D. [place] [facility] Procedures CT Abdomen Pelvis with IV Contrast MD CT ABD&PELVIS [facility] [address] [place] [phone] Referral ID Status Reason Start Date Expiration Date Visits Requ ested Visits Authorized [id number] Closed 10/21/2021 10/21/2022 1 1 Encounter Details Date Type Department Care Team Description 01/06/2022 Hospital Encounter Department of Jamee Zarco Malignant Neoplasm Liver (HCC); Radiology, [place] Vladislav Pereira M.D. Malignant Neoplasm Of Pancreas (HCC) Building, in [address] [place] [address] [place] [phone] [place], [place] [phone] (Work) [phone] Social History Tobacco Use Types Packs/Day Years [...] often do you attend jehovah's witness or rastafari services? 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 Apply to port site. medical [...] 1 sodium (SENOKOT-S) mouth 2 (two) times a 8.6-50 mg per tablet day. traZODone (DESYREL) Take 1-2 tablets 30 tablet 1 01/06/2022 50 mg tablet (50-100 mg total) by mouth at bedtime. Take 50 mg daily at bedtime for at least 7 days. If ineffective, may trial increase to 100 mg daily at bedtime. Research IRB Take 1 capsule (20 mg 5 capsule 0 01/06/2022 0 01/11/2022-106647 onvansertib total) by mouth daily (PCM-075) 20 mg for 5 doses. Take on capsuleIndications: Days 1 through 5 of Secondary Malignant each 14 day course. Neoplasm Liver (HCC), Drug should be taken Malignant Neoplasm Of with a large glass of Pancreas (HCC) plain water without ice. Refrain from eating for 30 minutes following administration of Onvansertib. A light breakfast can be served between 30 minutes and 3 hours after drug intake. Research IRB Take 2 capsules (10 mg 10 capsule 0 01/06/2022 01/11/2022-169148 onvansertib total) by mouth daily (PCM-075) 5 mg for 5 doses. Take on capsuleIndications: Days 1 through 5 of Secondary Malignant each 14 day course. Neoplasm Liver (HCC), Drug should be taken Malignant Neoplasm Of with a large glass of Pancreas (HCC) plain water without ice. Refrain from eating for 30 minutes following administration of Onvansertib. A light breakfast can be served between 30 minutes and 3 hours after drug intake. Creon 24,000-76,000 TAKE 2 CAPSULES BY 240 capsule 3 022 04/11/2022 -120,000 unit capsule MOUTH WITH MEALS AND 1 TO 2 CAPSULES WITH SNACKS gabapentin TAKE 2 CAPSULES(600 60 capsule 1 12/20/202102/21 (NEURONTIN) 300 mg MG) BY MOUTH AT capsule BEDTIME HYDROmorphone Take 0.5-1 tablets 60 tablet 0 01/06/2022 (DILAUDID) 4 mg (2-4 mg total) by tabletIndications: mouth every 6 (six) Chronic Pain/Nonacute hours as needed for Pain pain Indication: Chronic Pain/Nonacute Pain. LORazepam (Ativan) Take 1 tablet (0.5 mg 10 tablet 0 202103/21/2022 0.5 mg tablet total) by mouth every 6 (six) hours as needed for anxiety. ondansetron (ZOFRAN) Take 1 tablet (8 mg 30 tablet 3 202103/21/2022 8 mg total) by mouth every tabletIndications: 8 (eight) hours as Malignant Neoplasm Of needed for nausea or Pancreas (HCC) vomiting. pantoprazole Take 1 tablet (40 mg 90 tablet 0 12/22/2021 (PROTONIX) 40 mg EC total) by mouth every tablet morning before breakfast. Take twice daily before breakfast and before dinner 10/24-10/31, then continue once daily before breakfast. documented as of this encounter Nursing Notes Jyoti Amanda RJohn. - 01/06/2022 7:45 AM CDT IVAD Contrast Injection Assessment Details: What type of IVAD? yes If power???What identifiers were used (2 needed or Rad approval)? Id card and 3 bumps noted at [facility] when accessing port this morning Tip placement verified? yes Location: [place] Date (if applicable): 10/25/21 Blood return verified? yes VAPP Orders (Nurse to use Saline or Heparin post scan): Is patient staying accessed after scan? yes documented in this encounter Plan of Treatment Upcoming Encounters Date Type Specialty Care Team Description 06/22/2022 Lab Laboratory Medicine Maria Del Rosario Gomez AP RN, C.N.P., M.S. [address] [place] [phone] (Mj godoy) 06/22/2022 [facility] [address] [place] [phone] (Mj godoy) 06/29/2022 Lab Laboratory Medicine Maria Del Rosario Gomez AP RN, C.N.P., M.S. [address] [place] [phone] (Mj godoy) 06/29/2022 Infusion Oncology Maria Del Rosario Gomez APRN, C.N .Pamela., M.S. [address] [place] [phone] (Mj godoy) documented as of this encounter Procedures Procedure Name Priority Date/Time Associated Comments Diagnosis CT ABDOMEN PELVIS RAD - Routine 01/06/2022 8:22 Secondary Result s for this WITH IV CONTRAST (most inpatients AM CDT Malignant procedu re are in and all Neoplasm Liver the results outpatients) (HCC) section. Malignant Neoplasm Of Pancreas (HCC) CT CHEST WITH IV RAD - Routine 01/06/2022 8:22 Secondary Results for this CONTRAST (most inpatients AM CDT Malignant procedure a re in and all Neoplasm Liver the results outpatients) (HCC) section. Malignant Neoplasm Of Pancreas (HCC) documented in this encounter Results CT Abdomen Pelvis with IV Contrast (01/06/2022 8:22 AM CDT) Anatomical Region Laterality Modality Abdomen, Pelvis, Abdominal RST LOS, N/A Comp uted Tomography, Computed Abdominal ARZ LOS, Abdominal FLA LOS Dileep ography Specimen (Source) Anatomical Collection Method Collection Time Re ceived Time Location / / Volume Laterality 01/06/2022 8:18 AM CDT Impressions 01/06/2022 9:37 AM CDT 1. ??No change probable metastatic pancreatic cancer in segment 7 of right hepatic lobe. 2. ??No change small volume of pelvic as cites. No obvious associated peritoneal carcinomatosis. 3. ??Patent common bile duct stent. 4. ??Extrapancreatic soft tissue encases hepatic artery and branches and encases and compresses portal vein confluence. The soft tissue likely represents combination of extrapancreatic cancer and chronic inflammation. Narrative 01/06/2022 9:37 AM CDT EXAM: ??CT ABDOMEN PELVIS WITH IV CONTRAST. This examination was performed in conjunction with a CT of the chest, which will be reported sep arately. COMPARISON: ??11/03/2021. FINDINGS: ??No change 1.4 cm peripherall y enhancing, otherwise low-density, mass in segment 7 of right hepatic lobe medially (series 3 im age 61 and series 5 image 120). Heterogeneity of hepatic parenchymal enhancement in left hepatic lobe anteriorly likely represents asymmetric perfusion. No change right hepatic lobe scar. No change small volume of pelvic ascites . Mild ileocolic ligament lymphadenopathy, largest lymph node measuring 1 cm short axis diameter (series 4 image 228), is unchanged, but slightly larger since older comparison CT 08/13/2021. Th is lymphadenopathy, associated with thickening of the right anterior pararenal fascia, is likely radha ctive. Previous pancreatic mass in caudate lobe is not identifiable. Extrapancreatic tumor, or inflammation, encases celiac artery and its proximal branches and confluence of portal vein, causing severe compression of the confluence, ob struction of the splenic vein, and causing large number of gastric and perigastric collateral veins . Patent common bile duct metal stent is unchanged in position. Abdomen and pelvis are otherwi se unchanged. Procedure Note John Shi M.D. - 01/06/2022Formatt ing of this note might be different from the original. EXAM: CT ABDOMEN PELVIS WITH IV CONTRAST . This examination was performed in conjunction with a CT of the chest, which will be reported sep arately. COMPARISON: 11/03/2021. FINDINGS: No change 1.4 cm peripherally enhancing, otherwise low-density, mass in segment 7 of right hepatic lobe medially (series 3 im age 61 and series 5 image 120). Heterogeneity of hepatic parenchymal enhancement in left hepatic lobe anteriorly likely represents asymmetric perfusion. No change right hepatic lobe scar. No change small volume of pelvic ascites . Mild ileocolic ligament lymphadenopathy, largest lymph node measuring 1 cm short axis diameter (series 4 image 228), is unchanged, but slightly larger since older comparison CT 08/13/2021. Th is lymphadenopathy, associated with thickening of the right anterior pararenal fascia, is likely radha ctive. Previous pancreatic mass in caudate lobe is not identifiable. Extrapancreatic tumor, or inflammation, encases celiac artery and its proximal branches and confluence of portal vein, causing severe compression of the confluence, ob struction of the splenic vein, and causing large number of gastric and perigastric collateral veins . Patent common bile duct metal stent is unchanged in position. Abdomen and pelvis are otherwi se unchanged. IMPRESSION: 1. No change probable metastatic pancrea tic cancer in segment 7 of right hepatic lobe. 2. No change small volume of pelvic asci marli. No obvious associated peritoneal carcinomatosis. 3. Patent common bile duct stent. 4. Extrapancreatic soft tissue encases h epatic artery and branches and encases and compresses portal vein confluence. The soft tissue likely represents combination of extrapancreatic cancer and chronic inflammation. Vladislav WONG CT PROCEDURES CT Chest with IV Contrast (01/06/2022 8:22 AM CDT) Anatomical Region Laterality Modality Chest, Thoracic RST LOS, Thoracic ARZ N/A Co mputed Tomography, Computed LOS, Thoracic ARZ LOS, Thoracic FLA Olivier graphy LOS Specimen (Source) Anatomical Collection Method Collection Time Re ceived Time Location / / Volume Laterality 01/06/2022 8:20 AM CDT Impressions 01/06/2022 9:27 AM CDT No change in the chest since 11/03/2021 to include multiple tiny pulmonary nodules. Narrative 01/06/2022 9:27 AM CDT EXAM: CT CHEST WITH IV CONTRAST COMPARISON: Chest CT 10/14/2021. FINDINGS: Tiny pulmonary nodules are unchanged wit h examples including a 5 mm nodule in the anterior right upper lobe (series 3 image 286), 3 mm no dule in the basal left lower lobe (3/486) and 4 mm nodule in the right apex (3/97). No new or enlargi ng nodules. Scattered areas of peripheral endobronchial plugging. Slight scarring in apices. Mil d atelectasis and/or scarring in the lower lungs. No pleural effusion. Stable 5 mm left internal mammary lymph node (3/273). Right Port-A-Cath with tip in the upper RA. Minor hypertrophic changes in the spine. This examination was performed in conjun ction with a CT of the abdomen, which will be reported separately. Procedure Note Charanjit Tapia M.D. - 01/06/2022Form atting of this note might be different from the original. EXAM: CT CHEST WITH IV CONTRAST COMPARISON: Chest CT 10/14/2021. FINDINGS: Tiny pulmonary nodules are unchanged wit h examples including a 5 mm nodule in the anterior right upper lobe (series 3 image 286), 3 mm no dule in the basal left lower lobe (3/486) and 4 mm nodule in the right apex (3/97). No new or enlargi ng nodules. Scattered areas of peripheral endobronchial plugging. Slight scarring in apices. Mil d atelectasis and/or scarring in the lower lungs. No pleural effusion. Stable 5 mm left internal mammary lymph node (273). Right Port-A-Cath with tip in the upper RA. Minor hypertrophic changes in the spine. This examination was performed in conjun ction with a CT of the abdomen, which will be reported separately. IMPRESSION: No change in the chest since 11/03/2021 to include multiple tiny pulmonary nodules. Vladislav WONG CT PROCEDURES documented in this encounter Visit Diagnoses Diagnosis Secondary Malignant Neoplasm Liver (HCC) Malignant Neoplasm Of Pancreas (HCC) documented in this encounter Administered Medications Inactive Administered Medications - up to 3 most recent administrations Medication Order MAR Action Action Date Dose Rate Site heparin flush 500 Units Given 01/06/2022 8:24 AM CDT 500 Units 500 Units, intra-catheter, As needed, line care, Starting on Sandra 01/06/22 at 0736, Implanted Vascular Access Device (IVAD) Venous Non-Valved: When no infusion to maintain patency, following saline flush. iohexoL 300 mg iodine/mL solution 1-200 mL Given 01/06/2022 8:12 AM CDT 140 mL (OMNIPAQUE) 1-200 mL, intravenous, Once in imaging, contrast, Starting on Sandra 01/06/22 at 0732, For 1 dose, Imaging Protocol Orders, Dose per Radiant Medication Guidelines sodium chloride (PF) 0.9 % injection 1-1 00 mL Given 01/06/2022 8:13 AM CDT 50 mL 1-100 mL, intravenous, Once, On Sandra 01/06/22 at 0745, For 1 dose, Imaging Protocol Orders sodium [...] documented as of this encounter Care Teams Route Rider Relationship Specialty Start Date End Date Elsewhere, Pcp PCP - General Family Medicine 08/12/20 documented as of this encounter
--- OUTSIDE RECORDS SUMMARY | 2022-06-18 16:04 | XMS_ITS | Encounter Summary ---
:1965 Author Organization [facility] Address [address] [place] [address] Care Team Providers Name Role Phone Elsewhere, Pcp Primary Care Provider Unavailable Reason for Visit Episode Based Medications (Routine) - Closed Specialty Diagnoses / Procedures Referred By Contact Refer red To Contact Diagnoses Malignant Neoplasm Of Pancreas (HCC) Secondary Malignant Neoplasm Liver (HCC) Medication Therapy Detention Not Anticoagulant Jesse Perkins, [facility] Procedures UT ONDANSETRON HCL INJECTION UT LEUCOVORIN CALCIUM INJECTION UT INJ IRINOTECAN LIPOSOME 1 MG UT FLUOROURACIL INJECTION P.A.-C., M.S. [address] [place] [address] [place] [phone] Referral ID Status Reason Start Date Expiration Date Visits Requ ested Visits Authorized [id number] Closed 08/27/2021 08/27/2022 36 36 Encounter Details Date Type Department Care Team Description 12/22/2021 Office Visit Department of Oncology Maria Del Rosario Gomez Se Malignant Neoplasm Liver (HCC) (Primary Dx); in [facility], POULTRY CLEANER, C.N.P., Malignant Neoplasm Of Pancreas (HCC) [facility].S [address] [place] [address] [place] [phone] Social History Tobacco Use Types Packs/Day Years [...] er 01/15/2021 How often do you attend restoration or taoism services? 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 - 12/22/2021 9:30 AM CDT SUBJECTIVE PRIMARY CARE PHYSICIAN ELSEWHERE, PCP LOCAL ONCOLOGIST No care seafood team member to display PRIMARY LEICESTER ONCOLOGIST Deborah Murray M.B.B.S. Maria Del Rosario Gomez APRN, C.N.P., M.S. CHIEF COMPLAINT / REASON FOR VISIT Adam Campbell is a 56 y.o. male who presents for evaluation while on a clinical trial for metastatic pancreatic adenocarcinoma. Cancer Staging Malignant [...] (01/25/2021 - 03/02/2021) Site: Pancreas Technique: 3D CHEMICAL LABORATORY SCIENTIST Goal: Curative Planned Treatment Start Date: 01/25/2021 01/25/2021 - 03/01/2021 Chemotherapy Gemcitabine ( with Radiation ) Start Date: 01/25/2021 08/13/2021 Genetic Testing and Tumor Genotyping [facility] pancreas panel negative 08/18/2021 - Research Study Participant Research Study: A Study to Analyze Onvansertib Treatment in Patients with Metastatic Pancreatic Ductal Adenocarcinoma ([id number]) Treatment Protocol: [facility] CRDF-001 ( Onvansertib (Days 1-5) / Fluorouracil / Leucovorin / Nanoliposomal Irinotecan ) 08/27/2021 - 11/11/2021 Research Study Participant Research Study: A Study to Analyze Onvansertib Treatment in Patients with Metastatic Pancreatic Ductal Adenocarcinoma ([id number]) Treatment Protocol: [facility] CRDF-001 ( Onvansertib (Days 1-10) / Fluorouracil / Leucovorin / Nanoliposomal Irinotecan ) Interval History Mr. Campbell reports that he continues to feel well. Continues to only experience illness for about a day and a half after treatment. He does continue to have a postnasal drip which has been causing him to have a raspy voice. He does not take any allergy medications. Reports that his mouth is sensitive to spicy foods. There was 1 day he was out with his family and only had 1 Creon tablet and consumed foods that are higher in fat content which caused him to have some GI distress for couple days. Reports that he tried increases Creon tablet use the next couple days to try and help improve the abdominalcramping and diarrhea that he experience. He is also experiencing some discomfort in his mouth. In the past he has had a history of a tooth abscess and he is wondering if he could potentially be copinganother abscess in a different location. He is planning to go to [place] to see his daughter and is hoping the tooth will become less of an issue for him. He has been taking Advil for this problem. He denies chest pain, shortness of breath, elevated temperature, night sweats or lower extremity edema. The following portions of the patient's history were reviewed and updated as appropriate: allergies,current medications, family history, medical history, social history, surgical history and problem list. CURRENT MEDICATIONS Current Outpatient Medications on File Prior to Visit Medication Sig Dispense Refill ??? gabapentin (NEURONTIN) 300 mg capsule TAKE 2 CAPSULES(600 MG) BY MOUTH AT BEDTIME 60 capsule 1 ??? Creon 24,000-76,000 -120,000 unit capsule TAKE 2 CAPSULES BY MOUTH WITH MEALS AND 1 TO 2 CAPSULES WITH SNACKS 240 capsule 3 ??? HYDROmorphone (DILAUDID) 4 mg tablet Take 0.5-1 tablets (2-4 mg total) by mouth every 6 (six) hours as needed for pain Indication: Chronic Pain/Nonacute Pain. 60 tablet 0 ??? medical cannabis capsule Take [...] nausea or vomiting. 20 tablet 1 ??? polyethylene glycol (MIRALAX) 17 gram powder [...] mg daily at bedtime.) 30 tablet 0 ??? [DISCONTINUED] pantoprazole (PROTONIX) 40 mg EC tablet Take 1 tablet (40 mg total) by mouth every morning before breakfast. Take twice daily before breakfast and before dinner 10/24-10/31, then continue once daily before breakfast. 90 tablet 0 No current facility-administered medications on file prior to visit. REVIEW OF SYSTEMS ENT: Positive for persistent hoarse voice and sinus congestion. All other systems reviewed and are negative. OBJECTIVE BP 112/71 (BP Location: Right arm, Patient Position: Sitting, Cuff Size: Regular) Pulse 76 Temp 36.3 ??C (Tympanic) Resp 16 Ht 177.6 cm Wt 76.4 kg SpO2 98% BMI 24.22 kg/m?? PHYSICAL EXAMINATION General: Well appearing 56 y.o. who is in no apparent distress. Appears to be at ECOG performance status 0 Skin: Non-jaundice. No rashes. Eyes: No scleral icterus Lungs: Nonlabored, absent of cough. Extremities: No edema Neuro: Alert and oriented x 3. Calm interactive and appropriate. No focal neuro deficits. LABORATORY DATA Lab data reviewed. ASSESSMENT / PLAN #1 Malignant Neoplasm Of Pancreas (HCC) #2 Secondary Malignant Neoplasm Liver (HCC) Prior to meeting with Mr. Campbell I had the opportunity to review his past medical records, laboratorytests. At this time everything is working well and I will not change any of his present treatment regimens. Plan to have him return as per study protocol. He will be having imaging studies at that time. For the increased nasal discharge talked about trying Claritin or other [id number] allergy medicine to see if that will help. For his dry skin he will continue with the lotions. 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 He will follow-up with his dentist regarding his concerns about his teeth. He is in full agreement the plan. Denies any further questions or concerns. Has our telephone number to contact us should they have any further questions or concerns. PATIENT EDUCATION Ready to learn, no apparent learning barriers were identified; learning preferences include listening. Explained diagnosis and treatment plan; patient expressed understanding of the content. ADMINISTRATIVE BILLING I personally spent 38 minutes in care of the patient today. Time includes both non face to face and face to face patient care. documented in this encounter Miscellaneous Notes Addendum Note - Alyssa Escobar - 12/22/2021 9:30 AM CDT Addended by: ALYSSA ESCOBAR on: 12/22/2021 11:43 AM Modules accepted: Orders documented in this encounter Plan of Treatment Upcoming Encounters Date Type Specialty Care Team Description 06/22/2022 Lab Laboratory Medicine Maria Del Rosario Gomez AP RN, C.N.P., M.S. [address] [place] [phone] (Mj godoy) 06/22/2022 Infusion Oncology Maria Del Rosario Gomez APRN, C.N .P., M.S. [address] [place], [place] [phone] (Mj godoy) 06/29/2022 [facility] [address] [place], [place] [phone] (Mj godoy) 06/29/2022 [facility] [address] [place], [place] [phone] (Mj godoy) documented as of this encounter Visit Diagnoses Diagnosis Secondary Malignant Neoplasm Liver (HCC) - Primary Malignant Neoplasm Of Pancreas (HCC) documented in this encounter Additional Health Concerns Assessment Noted Time PHQ-9 Depression Total Score: 2 10/01/2021 10:34 AM CS T documented as of this encounter Care Teams Respiratory Coordinator Relationship Specialty Start Date End Date Elsewhere, Pcp PCP - General Family Medicine 08/12/20 documented as of this encounter
--- OUTSIDE RECORDS SUMMARY | 2022-06-18 16:05 | XMS_ITS | Encounter Summary ---
:1965 Author Organization [facility] Address [address] [place] [id number] Care Team Providers Name Role Phone Elsewhere, Pcp Primary Care Provider Unavailable Reason for Referral Outpatient (Routine) Specialty Diagnoses / Procedures Referred By Contact Refer red To Contact Oncology Jesse Perkins P.A .-C., M.S. [address] [phone] Referral ID Status Reason Start Date Expiration Date Visits Requ ested Visits Authorized Outpatient (Routine) Specialty Diagnoses / Procedures Referred By Contact Refer red To Contact Oncology Jesse Perkins P.A .-C., M.S. [address] [phone] Referral ID Status Reason Start Date Expiration Date Visits Requ ested Visits Authorized Outpatient (Routine) Specialty Diagnoses / Procedures Referred By Contact Refer red To Contact Oncology Jesse Perkins P.A .-C., M.S. [address] [phone] Referral ID Status Reason Start Date Expiration Date Visits Requ ested Visits Authorized Outpatient (Routine) Specialty Diagnoses / Procedures Referred By Contact Refer red To Contact Oncology Jesse Perkins, Clarke Tidwell, M.S. [facility] [address] [place] [phone] Referral ID Status Reason Start Date Expiration Date Visits Requ ested Visits Authorized Reason for Visit Reason Comments Treatment Pre Chemo Episode Based Medications (Routine) - Closed Specialty Diagnoses / Procedures Referred By Contact Refer red To Contact Diagnoses Malignant Neoplasm Of Pancreas (HCC) Secondary Malignant Neoplasm Liver (HCC) Deborah Murray M.B.B.S. Rst Onc Rogo Procedures UT ONDANSETRON HCL INJECTION UT DEXAMETHASONE SODIUM PHOS UT LEUCOVORIN CALCIUM INJECTION UT PALONOSETRON HCL UT INJ IRINOTECAN LIPOSOME 1 MG UT FLUOROURACIL INJECTION [address] [place] [address] [place] [phone] Referral ID Status Reason Start Date Expiration Date Visits Requ ested Visits Authorized [id number] Closed 08/27/2021 08/27/2022 18 18 Encounter Details Date Type Department Care Team Description 11/24/2021 Office Visit Department of Jesse Perkins, Malignant Neoplasm Of Pancreas (HCC) (Primary Dx); Oncology in [place], M.S. Secondary Malignant Neoplasm Liver (HCC) ; [place], [place] [address] [place] [address] Examination Prior To Chemotherapy; [address] [place] [address] Medication Therapy News Gathering [place] [phone] Social History Tobacco Use Types Packs/Day Years [...] How often do you attend restoration or judaism services? 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 - 11/24/2021 8:10 AM CDT SUBJECTIVE PRIMARY [place] ONCOLOGIST Deborah Murray M.B.B.S. Maria Del Rosario Gomez APRN, C.N.P., M.S. CHIEF COMPLAINT / REASON FOR VISIT Mr. Campbell is a 56 y.o. male who presents for evaluation of metastatic pancreatic cancer HISTORY OF PRESENT ILLNESS Oncology [...] (01/25/2021 - 03/02/2021) Site: Pancreas Technique: 3D HEEL BUILDER MACHINE Goal: Curative Planned Treatment Start Date: 01/25/2021 01/25/2021 - 03/01/2021 Chemotherapy Gemcitabine ( with Radiation ) Start Date: 01/25/2021 08/13/2021 Genetic Testing and Tumor Genotyping [facility] pancreas panel negative 08/18/2021 - Research Study Participant Research Study: A Study to Analyze Onvansertib Treatment in Patients with Metastatic Pancreatic Ductal Adenocarcinoma ([id number]) Treatment Protocol: [facility] CRDF-001 ( Onvansertib (Days 1-5) / Fluorouracil / Leucovorin / Nanoliposomal Irinotecan ) 08/27/2021 - 11/11/2021 Research Study Participant Research Study: A Study to Analyze Onvansertib Treatment in Patients with Metastatic Pancreatic Ductal Adenocarcinoma ([id number]) Treatment Protocol: [facility] CRDF-001 ( Onvansertib (Days 1-10) / Fluorouracil / Leucovorin / Nanoliposomal Irinotecan ) INTERVAL HISTORY: Mr. Campbell states that he is doing well overall. He states he had a day and a half of fatigue and nausea, and then the symptoms resolved. He states he felt quite well the other days. He is staying active and has a good appetite. He has tried to increase his water intake. Please refer to the research flow sheet for more information. OBJECTIVE Vitals: 11/24/21 0810 BP: 108/72 Temp: (!) 35.8 ??C Pulse: 84 Weight: 76.7 kg PHYSICAL EXAM General: Well appearing 56 y.o. who is in no apparent distress. Appears to be at ECOG performance status 1 Skin: Non-jaundice. No rashes. Eyes: No scleral icterus Lymph: No palpable cervical, submandibular, or supraclavicular lymph nodes Heart: Regular, rate and rhythm. No murmurs, rubs or gallops Lungs: Clear to auscultation bilaterally Abdomen: Soft, nontender, nondistended. No hepatomegaly. Extremities: No edema Neuro: Alert and oriented x 3. Calm interactive and appropriate. ASSESSMENT / PLAN #1 Malignant Neoplasm Of Pancreas (HCC) #2 Secondary Malignant Neoplasm Liver (HCC) #3 Examination Prior To Chemotherapy The above information was discussed and reviewed with Mr. Campbell and his . He returns for cycle 6of treatment while on clinical study [facility] CRDF-001. He has been receiving fluorouracil/Leucovorin, liposomal irinotecan, and Onvansertib. He is tolerating therapy exceptionally well. We will continue with the same dose of liposomal irinotecan that was used last cycle. Per the study, he will now be receiving 15 mg/m2 of Onvansertib on days 1-5 of each cycle. We will plan to see him back in 2 weeks per study protocol. We discussed continuing to stay hydrated and applying lotion/moisturizure multiple times per day. I encouraged Mr. Campbell to call or message us in the meantime if any questions or concerns arise. He understands and agrees with the above plan. All other questions were answered. documented in this encounter Plan of Treatment Upcoming Encounters Date Type Specialty Care Team Description 06/22/2022 Lab Laboratory Medicine Maria Del Rosario Gomez AP RN, C.N.P., M.S. [address] [place] [phone] (Wo rk) 06/22/2022 Infusion Oncology Maria Del Rosario Gomez APRN, C.N .P., M.S. [address] [place] [phone] (Wo rk) 06/29/2022 Lab Laboratory Medicine Maria Del Rosario Gomez AP RN, C.N.P., M.S. 200 [place], [place] [phone] (Wo rk) 06/29/2022 Infusion Oncology Maria Del Rosario Gomez APRN, C.N .P., M.S. 200 [place], [place] [phone] (Wo rk) Scheduled Referrals Name Type Priority Associated Order Schedule Diagnoses Oncology office Outpatient Referral Routine Secondary Malignan t Expected: visit (clinic) Neoplasm Liver 12/08/2021, General; GIH (HCC) Expires: Pancreatic Malignant Neoplasm 3 Of Pancreas (HCC) Oncology office Outpatient Referral Routine Secondary Malignan t Expected: visit (clinic) Neoplasm Liver 12/22/2021, General; GIH (HCC) Expires: Pancreatic Malignant Neoplasm 3 Of Pancreas (HCC) Oncology office Outpatient Referral Routine Secondary Malignan t Expected: visit (clinic) Neoplasm Liver 01/05/2022, General; GIH (HCC) Expires: Pancreatic Malignant Neoplasm 3 Of Pancreas (HCC) Oncology office Outpatient Referral Routine Secondary Malignan t Expected: visit (clinic) Neoplasm Liver 01/19/2022, General; GIH (HCC) Expires: Pancreatic Medication Therapy 3 Alf Not Anticoagulant Malignant Neoplasm Of Pancreas (HCC) documented as of this encounter Results ALT (Alanine Aminotransferase) (01/06/2022 7:15 AM CDT) Patholo gist Method Time Signature Alanine 29 7 - 55 01/06/2022 DTL Aminotransferase U/L 8:03 AM CDT (ALT), S Specimen Anatomical Collection Method Collection Time Receive d Time (Source) Location / / Volume Laterality Blood (Blood, 01/06/2022 7:15 AM 01/07/20 7:42 Venous) CDT AM CDT Vladislav Zarco M.D. LAB BLOOD ADD-ON Performing Organization Address City/[facility] Phon e Number [facility] - [address] AST (Aspartate Aminotransferase) (01/06/2022 7:15 AM CDT) Patholo gist Method Time Signature Aspartate 23 8 - 48 01/06/2022 DTL Aminotransferase U/L 8:01 AM CDT (AST), S Specimen Anatomical Collection Method Collection Time Receive d Time (Source) Location / / Volume Laterality Blood (Blood, 01/06/2022 7:15 AM 01/07/20 7:42 Venous) CDT AM CDT Vladislav Zarco M.D. LAB BLOOD ADD-ON Performing Organization Address City/[facility] Phon e Number [facility] - [phone] [place] [address] Bilirubin, Total (01/06/2022 7:15 AM CDT) P athologist Signature Bilirubin, 0.4 <=1.2 mg/dL 01/06/2022 DTL Total, S 8:01 AM CDT Specimen Anatomical Collection Method Collection Time Receive d Time (Source) Location / / Volume Laterality Blood (Blood, 01/06/2022 7:15 AM 01/07/20 7:42 Venous) CDT AM CDT Vladislav Zarco M.D. LAB BLOOD ADD-ON Performing Organization Address City/[facility] Phon e Number [facility] - 200 [place], [place] [address] [place] [phone] [place] [address] (ABNORMAL) Alkaline Phosphatase (01/06/2022 7:15 AM CDT) P athologist Signature Alkaline 131 (H) 40 - 129 01/06/2022 DTL Phosphatase, S U/L 8:01 AM CDT Specimen Anatomical Collection Method Collection Time Receive d Time (Source) Location / / Volume Laterality Blood (Blood, 01/06/2022 7:15 AM 01/07/20 7:42 Venous) CDT AM CDT Vladislav Zarco M.D. LAB BLOOD ADD-ON Performing Organization Address City/[facility]/ZIP Code Phon e Number [facility] - 200 [place], [place] [address] [place] [address] Magnesium (01/06/2022 7:15 AM CDT) P athologist Signature Magnesium, S 2.2 1.7 - 2.3 01/06/2022 DTL mg/dL 8:01 AM CDT Specimen Anatomical Collection Method Collection Time Receive d Time (Source) Location / / Volume Laterality Blood (Blood, 01/06/2022 7:15 AM 01/07/20 7:42 Venous) CDT AM CDT Vladislav Zarco M.D. LAB BLOOD ADD-ON Performing Organization Address City/[facility]/ZIP Code Phon e Number [facility] - [address] Phosphorus Inorganic (01/06/2022 7:15 AM CDT) P athologist Signature Phosphorus 3.2 2.5 - 4.5 01/06/2022 DTL (Inorganic), S mg/dL 8:01 AM CDT Specimen Anatomical Collection Method Collection Time Receive d Time (Source) Location / / Volume Laterality Blood (Blood, 01/06/2022 7:15 AM 01/07/20 7:42 Venous) CDT AM CDT Vladislav Zarco M.D. LAB BLOOD ADD-ON Performing Organization Address City/[facility]/[place]IP [facility] [place] e Number [facility] - 200 [place], [place] [address] [place] [address] Albumin (01/06/2022 7:15 AM CDT) P athologist Signature Albumin, S 3.8 3.5 - 5.0 01/06/2022 DTL g/dL 8:01 AM CDT Specimen Anatomical Collection Method Collection Time Receive d Time (Source) Location / / Volume Laterality Blood (Blood, 01/06/2022 7:15 AM 01/07/20 7:42 Venous) CDT AM CDT Vladislav Zarco M.D. LAB BLOOD ADD-ON Performing Organization Address City/State/ZIP Code Phon e Number [facility] - [address] [place], [place] [address] [facility] [place] [address] [facility] [address] [facility] (ABNORMAL) Basic Metabolic Panel (01/06/2022 7:15 AM CDT) P athologist Signature Potassium, S 4.2 3.6 - [...] 01/06/2022 DTL Black/ mL/min/BSA 8:01 AM CDT Fijian Comment: ----ADDITIONAL INFORMATION---- Estimated GFR calculated using [...] Organization Address City/State/ZIP Code Phon e Number [facility] - 200 [place], [place] [address] [facility] [place] [address] [facility] 200 [facility] (ABNORMAL) CBC with Differential, Blood (01/06/2022 7:15 AM CDT) [facility] Method Time Signature Hemoglobin 10.3 (L) 13.2 [...] Organization Address City/State/ZIP Code Phon e Number [facility] - [address] [place], [place] [address] [facility] [place] [place] [address] [employer] [facility] [address] [facility] ALT (Alanine Aminotransferase) (12/22/2021 7:42 AM CDT) [facility] gist Method Time Signature Alanine 34 7 - 55 12/22/2021 DTL Aminotransferase U/L 8:33 AM CDT (ALT), S Specimen Anatomical Collection Method Collection Time Receive d Time (Source) Location / / Volume Laterality Blood (Blood, 12/22/2021 7:42 AM 12/23/19 22 8:13 Venous) CDT AM CDT Vladislav Zarco M.D. LAB BLOOD ADD-ON Performing Organization Address City/State/ZIP Code Phon e Number [facility] - [address] [place], [place] [address] [facility] [place] [address] [employer] [facility] [address] AST (Aspartate Aminotransferase) (12/22/2021 7:42 AM CDT) [facility] Method Time Signature Aspartate 22 8 - 48 12/22/2021 METH Aminotransferase U/L 8:20 AM CDT (AST), P Specimen Anatomical Collection Method Collection Time Receive d Time (Source) Location / / Volume Laterality Blood (Blood, 12/22/2021 7:42 AM 12/23/19 22 7:48 Venous) CDT AM CDT Vladislav Zarco M.D. LAB BLOOD ADD-ON Performing Organization Address City/State/ZIP Code Phon e Number [facility] - [address] [place], [place] [address] [facility] [place] [address] [employer] [facility] [address] [facility] Bilirubin, Total (12/22/2021 7:42 AM CDT) athologist Signature Bilirubin, 0.4 <=1.2 mg/dL 12/22/2021 METH Total, P 8:20 AM CDT Specimen Anatomical Collection Method Collection Time Receive d Time (Source) Location / / Volume Laterality Blood (Blood, 12/22/2021 7:42 AM 12/23/19 22 7:48 Venous) CDT AM CDT Vladislav Zarco M.D. LAB BLOOD ADD-ON Performing Organization Address City/State/ZIP Code Phon e Number [facility] - [address] [place], [place] [address] [facility] [place] [address] [facility] [address] (ABNORMAL) Alkaline Phosphatase (12/22/2021 7:42 AM CDT) athologist Signature Alkaline 131 (H) 40 - 129 12/22/2021 DTL Phosphatase, S U/L 8:33 AM CDT Specimen Anatomical Collection Method Collection Time Receive d Time (Source) Location / / Volume Laterality Blood (Blood, 12/22/2021 7:42 AM 12/23/19 22 8:13 Venous) CDT AM CDT Vladislav Zarco M.D. LAB BLOOD ADD-ON Performing Organization Address City/State/ZIP Code Phon e Number [facility] - [address] [place], [place] [address] [facility] [place] [address] [facility] [address] Magnesium (12/22/2021 7:42 AM CDT) athologist Signature Magnesium, S 2.1 1.7 - 2.3 12/22/2021 DTL mg/dL 8:33 AM CDT Specimen Anatomical Collection Method Collection Time Receive d Time (Source) Location / / Volume Laterality Blood (Blood, 12/22/2021 7:42 AM 12/23/19 22 8:13 Venous) CDT AM CDT Vladislav Zarco M.D. LAB BLOOD ADD-ON Performing Organization Address City/State/ZIP Code Phon e Number [facility] - [address] [place], [place] [address] [facility] [place] [address] Phosphorus Inorganic (12/22/2021 7:42 AM CDT) athologist Signature Phosphorus 3.4 2.5 - 4.5 12/22/2021 DTL (Inorganic), S mg/dL 8:33 AM CDT Specimen Anatomical Collection Method Collection Time Receive d Time (Source) Location / / Volume Laterality Blood (Blood, 12/22/2021 7:42 AM 12/23/19 8:13 Venous) CDT AM CDT Vladislav Zarco M.D. LAB BLOOD ADD-ON Performing Organization Address City/[facility] Phon e Number [facility] - [address] Albumin (12/22/2021 7:42 AM CDT) athologist Signature Albumin, S 3.9 3.5 - 5.0 12/22/2021 DTL g/dL 8:33 AM CDT Specimen Anatomical Collection Method Collection Time Receive d Time (Source) Location / / Volume Laterality Blood (Blood, 12/22/2021 7:42 AM 12/23/19 8:13 Venous) CDT AM CDT Vladislav Zarco M.D. LAB BLOOD ADD-ON Performing Organization Address City/State/[facility] Code Phon e Number [facility] - 200 [place] [address] 05 [place] [address] (ABNORMAL) Basic Metabolic Panel (12/22/2021 7:42 AM CDT) athologist Signature Potassium, P 3.9 [...] CDT eGFR-Black/Afri >90 >=60 12/22/2021 METH can Fijian mL/min/BSA 8:20 AM CDT Comment: ----ADDITIONAL INFORMATION---- Estimated GFR calculated using the 2009 CKD_EPI creatinine equation. eGFR Non-Black/ >90 >=60 mL/min/BSA 12/22/2021 8:20 AM CDT METH Comment: ----ADDITIONAL INFORMATION---- Estimated GFR calculated using the 2009 CKD_EPI creatinine equation. Calcium, Total, P 9.0 8.6 - 10.0 mg/dL 12/22/2021 8:20 AM CDT METH Glucose, P 100 70 - 140 mg/dL 12/22/2021 8:20 AM CDT [facility] Specimen Anatomical Collection Method Collection Time Receive d Time (Source) Location / / Volume Laterality Blood (Blood, 12/22/2021 7:42 AM 12/23/19 7:48 Venous) CDT AM CDT Vladislav Zarco M.D. LAB BLOOD ADD-ON Performing Organization Address City/State/ZIP Code Phon e Number [facility] - 200 [place], [place] [address] [facility] [place] [address] [facility] [address] [facility] (ABNORMAL) CBC with Differential, Blood (12/22/2021 7:42 AM CDT) [facility] gist Method Time Signature Hemoglobin 11.0 [...] Organization Address City/State/ZIP Code Phon e Number [facility] - 200 [place], [place] [address] [facility] [place] [place] [address] [facility] [address] [facility] ALT (Alanine Aminotransferase) (12/08/2021 7:56 AM CDT) [facility] gist Method Time Signature Alanine 36 7 - 55 12/08/2021 DTL Aminotransferase U/L 8:43 AM CDT (ALT), S Specimen Anatomical Collection Method Collection Time Receive d Time (Source) Location / / Volume Laterality Blood (Blood, 12/08/2021 7:56 AM 12/09/19 22 8:25 Venous) CDT AM CDT Vladislav Zarco M.D. LAB BLOOD ADD-ON Performing Organization Address City/[facility] Phon e Number [facility] - [address] [place], [place] [address] [facility] DTL [address] AST (Aspartate Aminotransferase) (12/08/2021 7:56 AM CDT) Patholo gist Method Time Signature Aspartate 27 8 - 48 12/08/2021 METH Aminotransferase U/L 8:34 AM CDT (AST), P Specimen Anatomical Collection Method Collection Time Receive d Time (Source) Location / / Volume Laterality Blood (Blood, 12/08/2021 7:56 AM 12/09/19 22 8:04 Venous) CDT AM CDT Vladislav Zarco M.D. LAB BLOOD ADD-ON Performing Organization Address City/[facility]/ZIP Code Phon e Number [facility] - [address] [place], [place] [address] [facility] [place] [address] Bilirubin, Total (12/08/2021 7:56 AM CDT) P athologist Signature Bilirubin, 0.5 <=1.2 mg/dL 12/08/2021 METH Total, P 8:34 AM CDT Specimen Anatomical Collection Method Collection Time Receive d Time (Source) Location / / Volume Laterality Blood (Blood, 12/08/2021 7:56 AM 12/09/19 22 8:04 Venous) CDT AM CDT Vladislav Zarco M.D. LAB BLOOD ADD-ON Performing Organization Address City/[facility] Phon e Number [facility] - [address] [place], [place] [address] [facility] [place] [address] (ABNORMAL) Alkaline Phosphatase (12/08/2021 7:56 AM CDT) P athologist Signature Alkaline 145 (H) 40 - 129 12/08/2021 DTL Phosphatase, S U/L 8:43 AM CDT Specimen Anatomical Collection Method Collection Time Receive d Time (Source) Location / / Volume Laterality Blood (Blood, 12/08/2021 7:56 AM 12/09/19 22 8:25 Venous) CDT AM CDT Vladislav Zarco M.D. LAB BLOOD ADD-ON Performing Organization Address City/[facility]/ZIP Code Phon e Number [facility] - 200 [place], [place] [address] [place] [address] [employer] [facility] 200 [facility] Magnesium (12/08/2021 7:56 AM CDT) P athologist Signature Magnesium, S 2.0 1.7 - 2.3 12/08/2021 DTL mg/dL 8:43 AM CDT Specimen Anatomical Collection Method Collection Time Receive d Time (Source) Location / / Volume Laterality Blood (Blood, 12/08/2021 7:56 AM 12/09/19 22 8:25 Venous) CDT AM CDT Vladislav Zarco M.D. LAB BLOOD ADD-ON Performing Organization Address City/[facility]/ZIP Code Phon e Number [facility] - 200 [place], [place] [address] [place] [address] Phosphorus Inorganic (12/08/2021 7:56 AM CDT) P athologist Signature Phosphorus 3.6 2.5 - 4.5 12/08/2021 DTL (Inorganic), S mg/dL 8:43 AM CDT Specimen Anatomical Collection Method Collection Time Receive d Time (Source) Location / / Volume Laterality Blood (Blood, 12/08/2021 7:56 AM 12/09/19 22 8:25 Venous) CDT AM CDT Vladislav Zarco M.D. LAB BLOOD ADD-ON Performing Organization Address City/[facility]/[place]IP [facility] Phon e Number [facility] - 200 [place], [place] [address] [place] [address] Albumin (12/08/2021 7:56 AM CDT) P athologist Signature Albumin, S 3.9 3.5 - 5.0 12/08/2021 DTL g/dL 8:43 AM CDT Specimen Anatomical Collection Method Collection Time Receive d Time (Source) Location / / Volume Laterality Blood (Blood, 12/08/2021 7:56 AM 12/09/19 8:25 Venous) CDT AM CDT Vladislav Zarco M.D. LAB BLOOD ADD-ON Performing Organization Address City/State/ZIP Code Phon e Number [facility] - [address] [place] [address] [facility] [place] [address] [facility] 200 [facility] Basic Metabolic Panel (12/08/2021 7:56 AM CDT) P athologist Signature Potassium, P 3.8 3.6 - [...] CDT eGFR-Black/Afric >90 >=60 12/08/2021 METH an Fijian mL/min/BSA 8:34 AM CDT Comment: ----ADDITIONAL INFORMATION---- [...] Organization Address City/State/ZIP Code Phon e Number [facility] - 200 [place], [place] [address] [facility] [place] [address] [facility] 200 [facility] (ABNORMAL) CBC with Differential, Blood (12/08/2021 7:56 AM CDT) [facility] Method Time Signature Hemoglobin 11.1 (L) 13.2 [...] Organization Address City/State/ZIP Code Phon e Number [facility] - [address] [place], [place] [address] [facility] [place] [place] [address] [facility] [address] documented in this encounter Visit Diagnoses Diagnosis Malignant Neoplasm Of Pancreas (HCC) - P rimary Secondary Malignant Neoplasm Liver (HCC) Examination Prior To Chemotherapy Medication Therapy News Gathering Technician Not Anticoa gulant documented in this encounter Additional Health Concerns Assessment Noted Time PHQ-9 Depression Total Score: 2 10/01/2021 10:34 AM CS T documented as of this encounter Care Teams Billet Header Relationship Specialty Start Date End Date Elsewhere, Pcp PCP - General Family Medicine 08/12/20 documented as of this encounter
--- OUTSIDE RECORDS SUMMARY | 2022-06-18 16:05 | XMS_ITS | Encounter Summary ---
:1965 Author Organization [facility] Address [address] [place] [address] Care Team Providers Name Role Phone Elsewhere, Pcp Primary Care Provider Unavailable Encounter Details Date Type Department Care Team Description 11/11/2021 Orders Only Department of Oncology in Yasmeen Escalera [place], [place] [address] [place] [phone] Social History Tobacco Use Types Packs/Day [...] How often do you attend evangelical or catholic services? 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 [address] [place] [address] [phone] (Mj godoy) 06/22/2022 [facility] [address] [place] [address] [phone] (Mj godoy) 06/29/2022 [facility] [address] [place] [address] [phone] (Mj godoy) 06/29/2022 [facility] [address] [place] [address] [phone] (Mj godoy) documented as of this encounter Visit Diagnoses Not on filedocumented in this encounter Additional Health Concerns Assessment Noted Time PHQ-9 Depression Total Score: 2 10/01/2021 10:34 AM CS T documented as of this encounter Care Teams Lathe Set Up Person Relationship Specialty Start Date End Date Elsewhere, Pcp PCP - General Family Medicine 08/12/20 documented as of this encounter
--- OUTSIDE RECORDS SUMMARY | 2022-06-18 16:05 | XMS_ITS | Encounter Summary ---
:1965 Author Organization [facility] Address [address] [place] [address] Care Team Providers Name Role Phone Elsewhere, Pcp Primary Care Provider Unavailable Reason for Referral MRI/CAT/PET Scan (Routine) - Closed Specialty Diagnoses / Procedures Referred By Contact Refer red To Contact Radiology Diagnoses Malignant Neoplasm Of Pancreas (HCC) Vladislav Zarco M.D. [facility] Procedures CT Abdomen Pelvis with IV Contrast FL CT ABD&PELVIS W CNTRST [address] [place], [place] [address] Referral ID Status Reason Start Date Expiration Date Visits Requ ested Visits Authorized [id number] Closed 10/15/2021 10/15/2022 1 1 ER DEVELOPMENT ENGINEER MRI/CAT/PET Scan (Routine) - Closed Specialty Diagnoses / Procedures Referred By Contact Refer red To Contact Radiology Diagnoses Malignant Neoplasm Of Pancreas (HCC) Vladislav Zarco M.D. [facility] Procedures CT Chest with IV Contrast FL CT THORAX W CNTRST [address] [place] [address] Referral ID Status Reason Start Date Expiration Date Visits Requ ested Visits Authorized [id number] Closed 10/15/2021 10/15/2022 1 1 ER DEVELOPMENT ENGINEER Reason for Visit MRI/CAT/PET Scan (Routine) - Closed Specialty Diagnoses / Procedures Referred By Contact Refer red To Contact Radiology Diagnoses Malignant Neoplasm Of Pancreas (HCC) Vladislav Zarco M.D. [facility] Procedures CT Abdomen Pelvis with IV Contrast [place] CT ABD&PELVIS W CNTRST [address] [place] [phone] Referral ID Status Reason Start Date Expiration Date Visits Requ ested Visits Authorized [id number] Closed 10/15/2021 10/15/2022 1 1 Encounter Details Date Type Department Care Team Description 11/03/2021 Hospital Encounter Department of Jose Zarco Neoplasm Radiology, [facility] Vladislav Pereira M.D. Of Pancreas (HCC) [facility], in [address] [place] [address] [place] [phone] [place], [place] [phone] (Work) [phone] Social History Tobacco Use Types Packs/Day Years [...] How often do you attend evangelical or christian services? Never 01/15/2021 Do you [...] at Date Recorded Male 08/18/2021 2:55 PM CAREER DEVELOPMENT ENGINEER documented as of this encounter Medications at Time of Discharge Medication Sig Dispensed Refills Start Date End Date medical cannabis capsule Take by mouth. THC component: 0 CBD component: polyethylene glycol Take 1 packet (17 g 0 021 (MIRALAX) 17 gram powder total) by mouth 2 packet (two) times a day. Dissolve each 17 g dose in 240 mLs (8 ounces) of beverage. sennosides-docusate Take 3 tablets by 0 1 sodium (SENOKOT-S) mouth 2 (two) times 8.6-50 mg per tablet a day. loperamide (IMODIUM A-D) Take 1 capsule (2 30 capsule 3 10/1211/28/2021 2 mg capsule mg total) by mouth 4 (four) times a day as needed for diarrhea. gabapentin (NEURONTIN) TAKE 2 CAPSULES(600 60 capsule 1 03/202212/20/2021 300 mg capsule MG) BY MOUTH AT BEDTIME HYDROmorphone (DILAUDID) Take 0.5-1 tablets 60 tablet 0 07/202211/29/2021 4 mg tabletIndications: (2-4 mg total) by Chronic Pain/Nonacute mouth every 6 (six) Pain hours as needed for pain Indication: Chronic Pain/Nonacute Pain. bsyqur-swyebpvy-bqrhwed Take 2 capsules by 240 capsule 3 12/09/2021 (Creon) mouth as directed. 24,000-76,000-120,000 2 capsules with Unit per DR capsule meals and 1-2 capsules with snacks. ondansetron (ZOFRAN) 8 Take 1 tablet (8 mg 30 tablet 3 02/202101/06/2022 mg tabletIndications: total) by mouth Malignant Neoplasm Of every 8 (eight) Pancreas (HCC) hours as needed for nausea or vomiting. ondansetron ODT Take 1 tablet (8 mg 20 tablet 1 10/29/2021 01/06/2022 (ZOFRAN-ODT) 8 mg total) by mouth disintegrating tablet every 8 (eight) hours as needed for nausea or vomiting. pantoprazole (PROTONIX) Take 1 tablet (40 90 tablet 0 10/2412/22/2021 40 mg EC tablet mg total) by mouth every morning before breakfast. Take twice daily before breakfast and before dinner 10/24-10/31, then continue once daily before breakfast. traZODone (DESYREL) 50 Take 1-2 tablets 30 tablet 0 021 01/06/2022 mg tablet (50-100 mg total) by mouth at bedtime. Take 50 mg daily at bedtime for at least 7 days. If ineffective, may trial increase to 100 mg daily at bedtime. documented as of this encounter Nursing Notes Faith Cerda R.N. - 11/03/2021 4:45 PM CST IVAD Contrast Injection Assessment Details: What type of IVAD? Power Right chest If power???What identifiers were used (2 needed or Rad approval)? ID Card, Macdonald Chain, or bracelet and Huerta or Outside medical record (Date 11-05-20) Tip placement verified? yes Location: Cavoatrial junction CT Date (if applicable): 10-25-21 Blood return verified? yes VAPP Orders (Nurse to use Saline or Heparin post scan): Saline and Heparin Is patient staying accessed after scan? No ER DEVELOPMENT ENGINEER documented in this encounter Plan of Treatment Upcoming Encounters Date Type Specialty Care Team Description 06/22/2022 Lab Laboratory Medicine Maria Del Rosario Gomez AP RN, C.N.P., M.S. [address] [place] [phone] (Mj godoy) 06/22/2022 Infusion Oncology Maria Del Rosario Gomez APRN, C.N .P., M.S. [address] [place] [phone] (Mj rk) 06/29/2022 Lab Laboratory Medicine Maria Del Rosario Gomez AP RN, C.N.P., M.S. [address] [place] [phone] (Mj godoy) 06/29/2022 Infusion Oncology Maria Del Rosario Gomez APRN, C.N .P., M.S. [address] [place] [phone] (Mj godoy) documented as of this encounter Procedures Procedure Name Priority Date/Time Associated Comments Diagnosis CT ABDOMEN PELVIS RAD - Routine 11/03/2021 4:57 Malignant Result s for this WITH IV CONTRAST (most inpatients PM CAREER DEVELOPMENT ENGINEER Neoplasm Of procedu re are in and all Pancreas (HCC) the results outpatients) section. CT CHEST WITH IV RAD - Routine 11/03/2021 4:57 Malignant Results for this CONTRAST (most inpatients PM CAREER DEVELOPMENT ENGINEER Neoplasm Of procedure a re in and all Pancreas (HCC) the results outpatients) section. documented in this encounter Results CT Abdomen Pelvis with IV Contrast (11/03/2021 4:57 PM CAREER DEVELOPMENT ENGINEER) Anatomical Region Laterality Modality Abdomen, Pelvis, Abdominal RST LOS, N/A Comp uted Tomography, Computed Abdominal ARZ LOS, Abdominal FLA LOS Dileep ography Specimen (Source) Anatomical Collection Method Collection Time Re ceived Time Location / / Volume Laterality 11/03/2021 4:47 PM CAREER DEVELOPMENT ENGINEER Impressions 11/04/2021 9:08 AM CAREER DEVELOPMENT ENGINEER Interval changes compared to the CT study dated 08/13/2021 as detailed in the findings. Narrative 11/04/2021 9:08 AM CAREER DEVELOPMENT ENGINEER REVISED REPORT: EXAM: ??CT ABDOMEN PELVIS WITH IV CONTRA ST COMPARISON: ??10/25/2021, 10/23/2021, FINDINGS: ?? Screen captures of relevant findings are provided in QREADS. Intervally increased generalized fatty i nfiltration of the liver. An approximately 1.3 cm x 1.1 cm lesion in hepatic segment VII measured about 1.6 cm x 1.5 cm on 08/13/2021 and shows less enhancement to day. A nonspecific 0.4 cm site of early phase enhancement right hepatic lobe measured about 0.2 cm on 08/13/2021. An approximately 0.6 cm site of nonspecific early phase enhancement is now visible in the left hepatic lobe. Another vague sit e of early phase hepatic enhancement is present in the upper left hepatic lobe anteriorly on series 5 image 70; it is not identified on 08/13/2021. An approximately 2 cm x 1.1 cm x 2.5 cm mass centered in the uncinate process of the pancreas measured about 2.2 cm x 1.3 cm x 2.5 cm on 08/13/2021. There is again contiguous haziness in th e fat of the upper abdomen contacting multiple vessels, stomach, duodenum, and other parts of th e pancreas. Components along the pancreatic body and tail show some improvement consistent with se quela of prior inflammation. Heterogeneous parenchymal enhancement of the pancreatic body and part of the tail is again likely sequela of prior inflammation and repres entative of collateral vessels within the parenchyma. 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 Narrowed distal SMV and proximal portal vein similar to before. 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 Circumaortic left renal vein with small retroaortic compon ent. A metallic common bile duct stent presen t. Persistent pneumobilia is consistent with biliary continuity with the small bowel. The pro minent biliary tree similar to 08/13/2021. Transgastric pigtail drains again seen w ith distal loops within collapsed cavities. Associated tethering of the adjacent colon is simil ar to before. Redundant sigmoid colon. An approximately 1.1 cm x 0.8 cm right r etroperitoneal node is again noted. Reactive appearing ileocolic nodes are again seen. Free flu id in the pelvic cul-de-sac has slightly increased in volume. Musculoskeletal degenerative changes. Ne w cystic opacity in the spleen superiorly. Please see separate report for the chest CT performed today. Procedure Note Vladislav Pack M.D., Ph.D. - 11/07/19 22 REVISED REPORT: EXAM: CT ABDOMEN PELVIS WITH IV CONTRAST COMPARISON: 10/25/2021, 10/23/2021, 11/2020 FINDINGS: Screen captures of relevant findings are provided in QREADS. Intervally increased generalized fatty i nfiltration of the liver. An approximately 1.3 cm x 1.1 cm lesion in hepatic segment VII measured about 1.6 cm x 1.5 cm on 08/13/2021 and shows less enhancement to day. A nonspecific 0.4 cm site of early phase enhancement right hepatic lobe measured about 0.2 cm on 08/13/2021. An approximately 0.6 cm site of nonspecific early phase enhancement is now visible in the left hepatic lobe. Another vague sit e of early phase hepatic enhancement is present in the upper left hepatic lobe anteriorly on series 5 image 70; it is not identified on 08/13/2021. An approximately 2 cm x 1.1 cm x 2.5 cm mass centered in the uncinate process of the pancreas measured about 2.2 cm x 1.3 cm x 2.5 cm on 08/13/2021. There is again contiguous haziness in th e fat of the upper abdomen contacting multiple vessels, stomach, duodenum, and other parts of th e pancreas. Components along the pancreatic body and tail show some improvement consistent with se quela of prior inflammation. Heterogeneous parenchymal enhancement of the pancreatic body and part of the tail is again likely sequela of prior inflammation and repres entative of collateral vessels within the parenchyma. 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 Narrowed distal SMV and proximal portal vein similar to before. 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 Circumaortic left renal vein with small retroaortic compon ent. A metallic common bile duct stent presen t. Persistent pneumobilia is consistent with biliary continuity with the small bowel. The pro minent biliary tree similar to 08/13/2021. Transgastric pigtail drains again seen w ith distal loops within collapsed cavities. Associated tethering of the adjacent colon is simil ar to before. Redundant sigmoid colon. An approximately 1.1 cm x 0.8 cm right r etroperitoneal node is again noted. Reactive appearing ileocolic nodes are again seen. Free flu id in the pelvic cul-de-sac has slightly increased in volume. Musculoskeletal degenerative changes. Ne w cystic opacity in the spleen superiorly. Please see separate report for the chest CT performed today. IMPRESSION: Interval changes compared to the CT stud y dated 08/13/2021 as detailed in the findings. Vladislav WONG CT PROCEDURES CT Chest with IV Contrast (11/03/2021 4:57 PM CAREER DEVELOPMENT ENGINEER) Anatomical Region Laterality Modality Chest, Thoracic RST LOS, Thoracic ARZ N/A Co mputed Tomography, Computed LOS, Thoracic ARZ LOS, Thoracic FLA Olivier graphy LOS Specimen (Source) Anatomical Collection Method Collection Time Re ceived Time Location / / Volume Laterality 11/03/2021 4:50 PM CAREER DEVELOPMENT ENGINEER Impressions 11/03/2021 6:03 PM CAREER DEVELOPMENT ENGINEER 1. Unchanged bilateral subcentimeter noncalcified solid pulmonary nodules. 2. This examination was performed in con junction with a CT of the abdomen and pelvis, which will be reported separately. Narrative 11/03/2021 6:03 PM CAREER DEVELOPMENT ENGINEER EXAM: CT CHEST WITH IV CONTRAST COMPARISON: CT chest with IV contrast . FINDINGS: Scattered subsegmental bronchial pluggin g again seen, which is mildly increased in the right middle lobe medial segment (series 3, image 301 ). Unchanged bilateral subcentimeter noncalcified solid pulmonary nodules. Examples: 3 mm, perip heral left lower lobe posterior basal segment (series 3, image 489 and 3 mm, peripheral right low er lobe lateral basal segment (series 3, image 356). Unchanged scattered bilateral noncalcifi ed solid pulmonary micronodules. Example: Peripheral left lower lobe superior segment (series 3, i mage 330). Unchanged lymphatic distribution subcentimeter solid nodules, most likely intrapulmonar y lymph nodes. Example: 5 mm x 3 mm in the peripheral right middle lobe lateral segment (series 3, i mage 408). No pleural effusion. No pericardial effusion. Right internal jugular Mediport tip terminates in high right atrium. No lymphadenopathy. No suspicious osseous focus. T6 and T7 v ertebral body hemangiomas. Mild degenerative changes of the skeleton. This examination was performed in conjun ction with a CT of the abdomen and pelvis, which will be reported separately. Procedure Note Rosa Isela An M.D. - 11/03/2021Formatt ing of this note might be different from the original. EXAM: CT CHEST WITH IV CONTRAST COMPARISON: CT chest with IV contrast . FINDINGS: Scattered subsegmental bronchial pluggin g again seen, which is mildly increased in the right middle lobe medial segment (series 3, image 301 ). Unchanged bilateral subcentimeter noncalcified solid pulmonary nodules. Examples: 3 mm, perip heral left lower lobe posterior basal segment (series 3, image 489 and 3 mm, peripheral right low er lobe lateral basal segment (series 3, image 356). Unchanged scattered bilateral noncalcifi ed solid pulmonary micronodules. Example: Peripheral left lower lobe superior segment (series 3, i mage 330). Unchanged lymphatic distribution subcentimeter solid nodules, most likely intrapulmonar y lymph nodes. Example: 5 mm x 3 mm in the peripheral right middle lobe lateral segment (series 3, i mage 408). No pleural effusion. No pericardial effusion. Right internal jugular Mediport tip terminates in high right atrium. No lymphadenopathy. No suspicious osseous focus. T6 and T7 v ertebral body hemangiomas. Mild degenerative changes of the skeleton. This examination was performed in conjun ction with a CT of the abdomen and pelvis, which will be reported separately. IMPRESSION: 1. Unchanged bilateral subcentimeter non calcified solid pulmonary nodules. 2. This examination was performed in con junction with a CT of the abdomen and pelvis, which will be reported separately. Vladislav WONG CT PROCEDURES documented in this encounter Visit Diagnoses Diagnosis Malignant Neoplasm Of Pancreas (HCC) documented in this encounter Administered Medications Inactive Administered Medications - up to 3 most recent administrations Medication Order MAR Action Action Date Dose Rate Site heparin flush 500 Units Given 11/03/2021 5:05 PM CAREER DEVELOPMENT ENGINEER 500 Units Port 500 Units, intra-catheter, As needed, line care, Prior to discharge, Starting on Mon11/03/21 at 1608, For 1 dose, Implanted Vascular Access Device (IVAD) Venous Non-Valved: Following saline flush prior to discharge. iohexoL 300 mg iodine/mL solution 150 mL Given 11/03/2021 4:38 P M CAREER DEVELOPMENT ENGINEER 140 mL (OMNIPAQUE) 150 mL, intravenous, Once in imaging, contrast, Starting on Mon11/03/21 at 1637, For 1 dose sodium chloride 0.9 % injection 10 mL Given 11/03/2021 5:04 PM CAREER DEVELOPMENT ENGINEER 10 mL Port 10 mL, intravenous, As needed, line care, Implanted Vascular Access Device (IVAD) Venous Non-Valved, Starting on Mon11/03/21 at 1608, Prior to and following infusion, between multiple consecutive infusions, and prior to blood sampling, documented in this encounter Additional Health Concerns Assessment Noted Time PHQ-9 Depression Total Score: 2 10/01/2021 10:34 AM CS T documented as of this encounter Care Teams Knowledge Engineer Relationship Specialty Start Date End Date Elsewhere, Pcp PCP - General Family Medicine 08/12/20 documented as of this encounter
--- OUTSIDE RECORDS SUMMARY | 2022-06-18 16:05 | XMS_ITS | Encounter Summary ---
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 [address] [facility] [address] [place] [phone] Referral ID Status Reason Start Date Expiration Date Visits Requ ested Visits Authorized [id number] Closed 08/27/2021 08/27/2022 36 36 Encounter Details Date Type Department Care Team Description 11/24/2021 Infusion Department of Oncology Vladislav Zarco Secondary Malignant Neoplasm Liver (HCC) (Primary Dx); in [facility] elke Pereira M.D. Malignant Neoplasm Of Pancreas (HCC); [address] [place] [address] [address] [place] [phone] (Wo rk) Social History Tobacco Use Types [...] How often do you attend muslim or gnosticism services? 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 [address] [place] [phone] (Mj godoy) 06/22/2022 Infusion Oncology Maria Del Rosario Gomez APRN, C.N .P., M.S. [address] [place] [phone] (Mj godoy) 06/29/2022 Lab Laboratory Medicine Maria Del Rosario Gomez AP RN, C.N.P., M.S. [address] [place] [address] [phone] (Mj godoy) 06/29/2022 Infusion Oncology Maria Del Rosario Gomez APRN, C.N .P., M.S. [address] [place] [address] [phone] (Mj godoy) documented as of this encounter Visit Diagnoses Diagnosis Secondary Malignant Neoplasm Liver (HCC) - Primary Malignant Neoplasm Of Pancreas (HCC) Bacteremia documented in this encounter Administered Medications Inactive Administered Medications - up to 3 most recent administrations Medication Order MAR Action Action Date Dose Rate Site dexAMETHasone injection 8 mg Given 11/24/2021 9:52 AM CDT 8 mg (DECADRON) 8 mg, intravenous, Once, On Mon11/24/21 at 1000, For 1 dose fluorouraciL 5,000 mg in NaCl 0.9% Given 11/24/2021 1:20 PM CDT 5,000 mg 5 mL/hr 230 mL IVPB (ADRUCIL) 5,000 mg (rounded from 4,752 mg = 2,400 mg/m2 ? 1.98 m2 Order-specific BSA), intravenous, at 5 mL/hr, Administer over 46 Hours, over 46 hours, First dose on Mon11/24/21 at 1200, For 1 dose, Continuous infusion over 46 hours immediately following Leucovorin. Dose reflects TOTAL CALCULATED DOSE to be administered via continuous infusion over the specified length of treatment. irinotecan liposomaL 86 mg in D5W New Bag 11/24/2021 11:03 AM CDT 86 mg 347 mL/hr 520 mL IVPB (ONIVYDE) 86 mg (rounded from 85.14 mg = 43 mg/m2 ? 1.98 m2 Order-specific BSA), intravenous, at 347 mL/hr, Administer over 90 Minutes, Once, On Mon11/24/21 at 1000, For 1 dose, Administer immediately following the administration of oral onvansertib. Protect from light. No in-line filter. leucovorin 800 mg in NaCl 0.9% 315 New Bag 11/24/2021 12:46 PM CDT 800 mg 630 mL/hr mL IVPB 800 mg (rounded from 792 mg = 400 mg/m2 ? 1.98 m2 Order-specific BSA), intravenous, at 630 mL/hr, Administer over 30 Minutes, Once, On Mon11/24/21 at 1130, For 1 dose, Follows irinotecan liposome. ondansetron (PF) injection 8 mg (ZOFRAN) Given 11/24/2021 10:00 AM CDT 8 mg 8 mg, intravenous, Once, On Mon11/24/21 at 1000, For 1 dose [facility] [id number] onvansertib capsule 10 Given 11:02 AM CDT 10 mg mg (PCM-075) 10 mg, oral, Once, On Mon11/24/21 at 1030, For 1 dose, This is the 5 [...] prior to liposomal irinotecan Infusion. [facility] [id number] onvansertib capsule 20 Given 11:03 AM CDT 20 mg mg (PCM-075) 20 mg, oral, Once, On Mon11/24/21 at 1030, For 1 dose, This is the 20 [...] chloride 0.9 % injection 10 mL Given 11/24/2021 9:52 AM CDT 10 mL 10 mL, intra-catheter, As needed, line care, Starting on Mon11/24/21 at 0957, When IVAD Accessed and in Use: Flush prior to and following infusion, between multiple consecutive infusions, and prior to blood sampling. documented in this encounter Additional Health Concerns Assessment Noted Time PHQ-9 Depression Total Score: 2 10/01/2021 10:34 AM CS T documented as of this encounter Care Teams Train Reservation Clerk Relationship Specialty Start Date End Date Elsewhere, Pcp PCP - General Family Medicine 08/12/20 documented as of this encounter
--- OUTSIDE RECORDS SUMMARY | 2022-06-18 16:05 | XMS_ITS | Encounter Summary ---
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 Rst Onc Rogo Procedures OH ONDANSETRON HCL INJECTION OH DEXAMETHASONE SODIUM PHOS OH LEUCOVORIN CALCIUM INJECTION OH PALONOSETRON HCL OH INJ IRINOTECAN LIPOSOME 1 MG OH FLUOROURACIL INJECTION 200 [facility] 200 [place] [phone] Referral ID Status Reason Start Date Expiration Date Visits Requ ested Visits Authorized [id number] Closed 08/27/2021 08/27/2022 18 18 Encounter Details Date Type Department Care Team Description 11/11/2021 Lab Department of Infusion Maria Del Rosario Gomez, Secondary Malignant Neoplasm Liver (HCC) (Primary Dx); Therapy in [place], GUERO, C.N. P., M.S. Malignant Neoplasm Of Pancreas (HCC); [place] 200 [facility] Bacteremia [address] [place] [phone] (Wo rk) Social History Tobacco Use Types [...] er 01/15/2021 How often do you attend restorationist or faith services? 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 [address] [place] [phone] (Mj godoy) 06/22/2022 Infusion Oncology Maria Del Rosario Gomez APRN, C.N .P., M.S. [address] [place] [address] [phone] (Mj godoy) 06/29/2022 Lab Laboratory Medicine Maria Del Rosario Gomez AP RN, C.N.P., M.S. [address] [place] [address] [phone] (Mj godoy) 06/29/2022 Infusion Oncology Maria Del Rosario Gomez APRN, C.N .P., M.S. [address] [place] [address] [phone] (Mj godoy) documented as of this encounter Procedures Procedure Name Priority Date/Time Associated Comments Diagnosis CARBOHYDRATE AG 19-9 (CA Routine 11/11/2021 11:55 Secondary Results for this 19-9), S AM AGRONOMY INSTRUCTOR Malignant Neoplasm procedure are in Liver (HCC) the results Malignant Neoplasm section. Of Pancreas (HCC) CBC WITH DIFFERENTIAL, B Routine 11/11/2021 11:55 Secondary Results for this AM AGRONOMY INSTRUCTOR Malignant Neoplasm procedure are in Liver (HCC) the results Malignant Neoplasm section. Of Pancreas (HCC) ALANINE AMINOTRANSFERASE Routine 11/11/2021 11:55 Secondary Results for this (ALT), S/P AM AGRONOMY INSTRUCTOR Malignant Neoplasm procedure are in Liver (HCC) the results Malignant Neoplasm section. Of Pancreas (HCC) ASPARTATE Routine 11/11/2021 11:55 Secondary Results for this AMINOTRANSFERASE (AST), AM AGRONOMY INSTRUCTOR Malignant Neoplas m procedure are in S/P Liver (HCC) the results Malignant Neoplasm section. Of Pancreas (HCC) PHOSPHORUS (INORGANIC), Routine 11/11/2021 11:55 Secondary Results for this S AM AGRONOMY INSTRUCTOR Malignant Neoplasm procedure are in Liver (HCC) the results Malignant Neoplasm section. Of Pancreas (HCC) ALKALINE PHOSPHATASE, Routine 11/11/2021 11:55 Secondary Re sults for this S/P AM AGRONOMY INSTRUCTOR Malignant Neoplasm procedure are in Liver (HCC) the results Malignant Neoplasm section. Of Pancreas (HCC) MAGNESIUM, S Routine 11/11/2021 11:55 Secondary Results for this AM AGRONOMY INSTRUCTOR Malignant Neoplasm procedure are in Liver (HCC) the results Malignant Neoplasm section. Of Pancreas (HCC) BILIRUBIN, TOT, S/P Routine 11/11/2021 11:55 Secondary Resu lts for this AM AGRONOMY INSTRUCTOR Malignant Neoplasm procedure are in Liver (HCC) the results Malignant Neoplasm section. Of Pancreas (HCC) ALBUMIN, S/P Routine 11/11/2021 11:55 Secondary Results for this AM AGRONOMY INSTRUCTOR Malignant Neoplasm procedure are in Liver (HCC) the results Malignant Neoplasm section. Of Pancreas (HCC) BASIC METABOLIC PANEL, Routine 11/11/2021 11:55 Secondary R esults for this S/P AM AGRONOMY INSTRUCTOR Malignant Neoplasm procedure are in Liver (HCC) the results Malignant Neoplasm section. Of Pancreas (HCC) documented in this encounter Results Carbohydrate Antigen 19-9 (CA 19-9) (11/11/2021 11:55 AM AGRONOMY INSTRUCTOR) P athologist Signature Carbohydrate Ag 9 <35 U/mL 11/11/2021 SDSC 19-9, S 4:24 PM AGRONOMY INSTRUCTOR Comment: ----ADDITIONAL INFORMATION---- The testing method is an immunoenzymatic assay manufactured by [employer] and performed on the Tu[employer]anda DxI 800. ? Values obtained with different assay met hods or kits may be different and cannot be used inte rchangeably. ? Test results cannot be interpreted as ab solute evidence for the presence or absence of malignant disease. Specimen Anatomical Collection Method Collection Time Receive d Time (Source) Location / / Volume Laterality Blood (Blood, 11/11/2021 11:55 11/11/2021 3:26 Venous) AM AGRONOMY INSTRUCTOR PM AGRONOMY INSTRUCTOR Maria Del Rosario Gomez APRN, C.N.P., M.S. LAB BLOOD ADD-ON Performing Organization Address City/[facility] Code Phon e Number [facility] [address] [place], [place] [address] [facility] [place] [address] Laboratory Medicine and Pathology [address] [place] (ABNORMAL) ALT (Alanine Aminotransferase) (11/11/2021 11:55 AM AGRONOMY INSTRUCTOR) [facility] Method Time Signature Alanine 93 (H) 7 - 55 11/11/2021 DTL Aminotransferase U/L 1:06 PM AGRONOMY INSTRUCTOR (ALT), S Specimen Anatomical Collection Method Collection Time Receive d Time (Source) Location / / Volume Laterality Blood (Blood, 11/11/2021 11:55 11/11/2021 Venous) AM AGRONOMY INSTRUCTOR 12:46 PM AGRONOMY INSTRUCTOR Maria Del Rosario Gomez APRN, C.N.P., M.S. LAB BLOOD ADD-ON Performing Organization Address City/State/[facility] Phon e Number [facility] - [address] [place], [place] [address] [facility] [place] [address] [facility] [address] AST (Aspartate Aminotransferase) (11/11/2021 11:55 AM AGRONOMY INSTRUCTOR) [facility] Method Time Signature Aspartate 30 8 - 48 11/11/2021 DTL Aminotransferase U/L 1:04 PM AGRONOMY INSTRUCTOR (AST), S Specimen Anatomical Collection Method Collection Time Receive d Time (Source) Location / / Volume Laterality Blood (Blood, 11/11/2021 11:55 11/11/2021 Venous) AM AGRONOMY INSTRUCTOR 12:45 PM AGRONOMY INSTRUCTOR Maria Del Rosario Gomez APRN, C.N.P., M.S. LAB BLOOD ADD-ON Performing Organization Address City/[facility] Phon e Number [facility] - [address] Bilirubin, Total (11/11/2021 11:55 AM AGRONOMY INSTRUCTOR) athologist Signature Bilirubin, 0.4 <=1.2 mg/dL 11/11/2021 DTL Total, S 1:04 PM AGRONOMY INSTRUCTOR Specimen Anatomical Collection Method Collection Time Receive d Time (Source) Location / / Volume Laterality Blood (Blood, 11/11/2021 11:55 11/11/2021 Venous) AM AGRONOMY INSTRUCTOR 12:45 PM AGRONOMY INSTRUCTOR Maria Del Rosario Gomez APRN, C.N.P., M.S. LAB BLOOD ADD-ON Performing Organization Address [facility] Phon e Number [facility] - [address] (ABNORMAL) Alkaline Phosphatase (11/11/2021 11:55 AM AGRONOMY INSTRUCTOR) athologist Signature Alkaline 274 (H) 40 - 129 11/11/2021 DTL Phosphatase, S U/L 1:04 PM AGRONOMY INSTRUCTOR Specimen Anatomical Collection Method Collection Time Receive d Time (Source) Location / / Volume Laterality Blood (Blood, 11/11/2021 11:55 11/11/2021 Venous) AM AGRONOMY INSTRUCTOR 12:45 PM AGRONOMY INSTRUCTOR Pratik Willson APRNN.Pamela., M.S. LAB BLOOD ADD-ON Performing Organization Address City/[facility] Phon e Number [facility] - [address] Magnesium (11/11/2021 11:55 AM AGRONOMY INSTRUCTOR) athologist Signature Magnesium, S 2.1 1.7 - 2.3 11/11/2021 DTL mg/dL 1:04 PM AGRONOMY INSTRUCTOR Specimen Anatomical Collection Method Collection Time Receive d Time (Source) Location / / Volume Laterality Blood (Blood, 11/11/2021 11:55 11/11/2021 Venous) AM AGRONOMY INSTRUCTOR 12:45 PM AGRONOMY INSTRUCTOR Maria Del Rosario Gomez APRN, C.N.P., M.S. LAB BLOOD ADD-ON Performing Organization Address City/[facility]/ZIP Code Phon e Number [facility] - [address] Phosphorus Inorganic (11/11/2021 11:55 AM AGRONOMY INSTRUCTOR) P athologist Signature Phosphorus 4.3 2.5 - 4.5 11/11/2021 DTL (Inorganic), S mg/dL 1:04 PM AGRONOMY INSTRUCTOR Specimen Anatomical Collection Method Collection Time Receive d Time (Source) Location / / Volume Laterality Blood (Blood, 11/11/2021 11:55 11/11/2021 Venous) AM AGRONOMY INSTRUCTOR 12:45 PM AGRONOMY INSTRUCTOR Maria Del Rosario Gomez APRN, C.N.P., M.S. LAB BLOOD ADD-ON Performing Organization Address City/[facility]/ZIP Code Phon e Number [facility] - [id number] [place] [address] Albumin (11/11/2021 11:55 AM AGRONOMY INSTRUCTOR) P athologist Signature Albumin, S 4.2 3.5 - 5.0 11/11/2021 DTL g/dL 1:04 PM AGRONOMY INSTRUCTOR Specimen Anatomical Collection Method Collection Time Receive d Time (Source) Location / / Volume Laterality Blood (Blood, 11/11/2021 11:55 11/11/2021 Venous) AM AGRONOMY INSTRUCTOR 12:45 PM AGRONOMY INSTRUCTOR Maria Del Rosario Gomez APRN, C.N.P., M.S. LAB BLOOD ADD-ON Performing Organization Address City/State/ZIP Code Phon e Number [facility] - 200 [place], [place] [address] [place] [address] Basic Metabolic Panel (11/11/2021 11:55 AM AGRONOMY INSTRUCTOR) P athologist Signature Potassium, S 4.2 3.6 - 5.2 11/11/2021 DTL mmol/L 1:04 PM AGRONOMY INSTRUCTOR Sodium, S 141 135 - 145 11/11/2021 DTL mmol/L 1:04 PM AGRONOMY INSTRUCTOR Chloride, S 105 98 - 107 11/11/2021 DTL mmol/L 1:04 PM AGRONOMY INSTRUCTOR Bicarbonate, S 27 22 - 29 11/11/2021 DTL mmol/L 1:04 PM AGRONOMY INSTRUCTOR Anion Gap 9 7 - 15 11/11/2021 DTL 1:04 PM AGRONOMY INSTRUCTOR BUN (Blood Urea 13 8 - 24 11/11/2021 DTL Nitrogen), S mg/dL 1:04 PM AGRONOMY INSTRUCTOR Creatinine 0.91 0.74 - 11/11/2021 DTL 1.35 mg/dL 1:04 PM AGRONOMY INSTRUCTOR eGFR-Non >90 >=60 11/11/2021 DTL Black/ mL/min/BSA 1:04 PM AGRONOMY INSTRUCTOR Nigerian Comment: ----ADDITIONAL INFORMATION---- Estimated GFR calculated using the 2009 CKD_EPI creatinine equation. eGFR-Black/ >90 >=60 mL/min/BSA 2021 1:04 PM AGRONOMY INSTRUCTOR DTL Comment: ----ADDITIONAL INFORMATION---- Estimated GFR calculated using the 2009 CKD_EPI creatinine equation. Calcium, Total, S 8.9 8.6 - 10.0 mg/dL 11/11/2021 1:04 PM AGRONOMY INSTRUCTOR DTL Glucose, S 81 70 - 140 mg/dL 11/11/2021 1:04 PM AGRONOMY INSTRUCTOR D TL Specimen Anatomical Collection Method Collection Time Receive d Time (Source) Location / / Volume Laterality Blood (Blood, 11/11/2021 11:55 11/11/2021 Venous) AM AGRONOMY INSTRUCTOR 12:45 PM AGRONOMY INSTRUCTOR Maria Del Rosario Gomez APRN C.N.P., M.S. LAB BLOOD ADD-ON Performing Organization Address City/State/ZIP Code Phon e Number [facility] - [address] [place], [place] [address] [facility] [place] [address] [facility] [address] (ABNORMAL) CBC with Differential, Blood (11/11/2021 11:55 AM AGRONOMY INSTRUCTOR) [facility] Method Time Signature Hemoglobin 11.8 (L) 13.2 - 11/11/2021 DTL 16.6 g/dL 12:22 PM AGRONOMY INSTRUCTOR Hematocrit 36.5 (L) 38.3 - 11/11/2021 DTL 48.6 % 12:22 PM AGRONOMY INSTRUCTOR Erythrocytes 4.27 (L) 4.35 - 11/11/2021 DTL 5.65 12:22 PM AGRONOMY INSTRUCTOR x10(12)/L MCV 85.5 78.2 - 11/11/2021 DTL 97.9 fL 12:22 PM AGRONOMY INSTRUCTOR RBC Distrib Width 17.1 (H) 11.8 - 11/11/2021 DTL 14.5 % 12:22 PM AGRONOMY INSTRUCTOR Platelet Count 224 135 - 317 11/11/2021 DTL x10(9)/L 12:22 PM AGRONOMY INSTRUCTOR Leukocytes 4.9 3.4 - 9.6 11/11/2021 DTL x10(9)/L 12:22 PM AGRONOMY INSTRUCTOR Neutrophils 3.49 1.56 - 11/11/2021 DTL 6.45 12:22 PM AGRONOMY INSTRUCTOR x10(9)/L Lymphocytes 0.80 (L) 0.95 - 11/11/2021 DTL 3.07 12:22 PM AGRONOMY INSTRUCTOR x10(9)/L Monocytes 0.43 0.26 - 11/11/2021 DTL 0.81 12:22 PM AGRONOMY INSTRUCTOR x10(9)/L Eosinophils 0.12 0.03 - 11/11/2021 DTL 0.48 12:22 PM AGRONOMY INSTRUCTOR x10(9)/L Basophils 0.03 0.01 - 11/11/2021 DTL 0.08 12:22 PM AGRONOMY INSTRUCTOR x10(9)/L Specimen Anatomical Collection Method Collection Time Receive d Time (Source) Location / / Volume Laterality Blood (Blood, 11/11/2021 11:55 11/11/2021 Venous) AM AGRONOMY INSTRUCTOR 12:14 PM AGRONOMY INSTRUCTOR Maria Del Rosario Gomez APRN C.N.P., M.S. LAB BLOOD ADD-ON Performing Organization Address City/State/ZIP Code Phon e Number [facility] - [address] [place], [place] [address] [facility] [place] [address] [facility] [address] documented in this encounter Visit Diagnoses Diagnosis Secondary Malignant Neoplasm Liver (HCC) - Primary Malignant Neoplasm Of Pancreas (HCC) Bacteremia documented in this encounter Administered Medications Inactive Administered Medications - up to 3 most recent administrations Medication Order MAR Action Action Date Dose Rate Site heparin flush 500 Units Given 11/11/2021 11:50 AM AGRONOMY INSTRUCTOR 500 Units 500 Units, intra-catheter, As needed, line care, Starting on Sandra 11/11/21 at 1147, When no infusion to maintain patency: For IVAD accessed, not in use, and/or prior to hospital discharge, flush every 7 days after 0.9% preservative-free NaCL flush. For IVAD NOT accessed or used, flush every 4 weeks after 0.9% preservative-free NaCL flush. sodium chloride 0.9 % injection 20 mL Given 11/11/2021 11:50 AM AGRONOMY INSTRUCTOR 20 mL 20 mL, intra-catheter, As needed, line care, Starting on Sandra 11/11/21 at 1147, When IVAD Accessed and in Use: Flush post blood transfusion or post blood sampling. documented in this encounter Additional Health Concerns Assessment Noted Time PHQ-9 Depression Total Score: 2 10/01/2021 10:34 AM CS T documented as of this encounter Care Teams Grocery Associate Relationship Specialty Start Date End Date Elsewhere, Pcp PCP - General Family Medicine 08/12/20 documented as of this encounter
--- OUTSIDE RECORDS SUMMARY | 2022-06-18 16:05 | XMS_ITS | Encounter Summary ---
:1965 Author Organization [facility] Address [address] [place] [address] Care Team Providers Name Role Phone Elsewhere, Pcp Primary Care Provider Unavailable Encounter Details Date Type Department Care Team Description 11/11/2021 Orders Only Department of [facility], Secondary Mal ignant Neoplasm Liver (HCC) (Primary Dx); Oncology in [facility] Malignant Neoplasm Of Pancreas (HCC) [place], [place] [address] [place] [address] Social History Tobacco Use Types Packs/Day Years [...] How often do you attend evangelical or cheondoism services? Never 01/15/2021 Do you [...] to sleep or slept in a senior care (including now)? Education Answer Date Recorded What is the highest level of school you have completed or 12 th grade 01/15/2021 the highest degree you have received? 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 [address] [place] [phone] (Wo rk) 06/22/2022 Infusion Oncology Maria Del Rosario Gomez APRN, C.N .P., M.S. [address] [place] [phone] (Wo rk) 06/29/2022 Lab Laboratory Medicine Maria Del Rosario Gomez AP RN, C.N.P., M.S. [address] [place] [phone] (Wo rk) 06/29/2022 Infusion Oncology Maria Del Rosario Gomez APRN, C.N .P., M.S. [address] [place] [phone] (Wo rk) documented as of this encounter Visit Diagnoses Diagnosis Secondary Malignant Neoplasm Liver (HCC) - Primary Malignant Neoplasm Of Pancreas (HCC) documented in this encounter Additional Health Concerns Assessment Noted Time PHQ-9 Depression Total Score: 2 10/01/2021 10:34 AM CS T documented as of this encounter Care Teams Shoddy Mill 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
--- OUTSIDE RECORDS SUMMARY | 2022-06-18 16:05 | XMS_ITS | Encounter Summary ---
:1965 Author Organization [facility] Address [address] [place] [address] Care Team Providers Name Role Phone Elsewhere, Pcp Primary Care Provider Unavailable Reason for Visit Episode Based Medications (Routine) - Closed Specialty Diagnoses / Procedures Referred By Contact Refer red To Contact Diagnoses Malignant Neoplasm Of Pancreas (HCC) Secondary Malignant Neoplasm Liver (HCC) Deborah Murray M.B.B.S. Rst Onc Rogo Procedures RI ONDANSETRON HCL INJECTION RI DEXAMETHASONE SODIUM PHOS RI LEUCOVORIN CALCIUM INJECTION RI PALONOSETRON HCL RI INJ IRINOTECAN LIPOSOME 1 MG RI FLUOROURACIL INJECTION [address] [facility] [address] [place] [phone] Referral ID Status Reason Start Date Expiration Date Visits Requ ested Visits Authorized [id number] Closed 08/27/2021 08/27/2022 18 18 Encounter Details Date Type Department Care Team Description 11/11/2021 Infusion Department of Oncology Maria Del Rosario Gomez, Secondary Malignant Neoplasm Liver (HCC) (Primary Dx); in [facility] elke JACK C.N.P., M.S. Malignant Neoplasm Of Pancreas (HCC) [address] [place] [address] [address] [place] [phone] Social History Tobacco Use Types Packs/Day Years [...] How often do you attend amish or sabianism services? Never 01/15/2021 Do you belong to [...] at Date Recorded Male 08/18/2021 2:55 PM KEEPER HEAD documented as of this encounter Plan of Treatment Upcoming Encounters Date Type Specialty Care Team Description 06/22/2022 Lab Laboratory Medicine Maria Del Rosario Gomez AP RN, C.N.P., M.S. [address] [place] [phone] (Mj godoy) 06/22/2022 Infusion Oncology Maria Del Rosario Gomez APRN, C.N .P., M.S. [address] [place] [address] [phone] (Mj godoy) 06/29/2022 Lab Laboratory Medicine Maria Del Rosario Gomez AP RN, C.N.P., M.S. [address] [place] [address] [phone] (Mj godoy) 06/29/2022 Infusion Oncology Maria Del Rosario Gomez APRN, C.N .P., M.S. [address] [place] [address] [phone] (Mj godoy) documented as of this encounter Visit Diagnoses Diagnosis Secondary Malignant Neoplasm Liver (HCC) - Primary Malignant Neoplasm Of Pancreas (HCC) documented in this encounter Administered Medications Inactive Administered Medications - up to 3 most recent administrations Medication Order MAR Action Action Date Dose Rate Site atropine injection 0.5 Given 11/11/2021 4:36 PM 0.5 mg Left Upper Abdomen mg KEEPER HEAD 0.5 mg, subcutaneous, Once, On Sandra 11/11/21 at 1530, For 1 dose, PRE treatment dexAMETHasone injection 8 mg (DECADRON) Given 11/11/2021 3:32 PM KEEPER HEAD 8 mg 8 mg, intravenous, Once, On Sandra 11/11/21 at 1530, For 1 dose fluorouraciL 5,000 mg in NaCl 0.9% Given 11/11/2021 6:51 PM KEEPER HEAD 5,000 mg 5 mL/hr 230 mL IVPB (ADRUCIL) 5,000 mg (rounded from 4,776 mg = 2,400 mg/m2 ? 1.99 m2 Treatment Plan BSA from Measured weight), intravenous, at 5 mL/hr, Administer over 46 Hours, over 46 hours, First dose on Sandra 11/11/21 at 1730, For 1 dose, Continuous infusion over 46 hours immediately following Leucovorin. Dose reflects TOTAL CALCULATED DOSE to be administered via continuous infusion over the specified length of treatment. irinotecan liposomaL 86 mg in D5W New Bag 11/11/2021 4:[address] 86 mg 347 mL/hr 520 mL IVPB (ONIVYDE) 86 mg (rounded from 85.57 mg = 43 mg/m2 ? 1.99 m2 Treatment Plan BSA from Measured weight), intravenous, at 347 mL/hr, Administer over 90 Minutes, Once, On Sandra 11/11/21 at 1600, For 1 dose, Administer immediately following the administration of oral onvansertib. Protect from light. No in-line filter. leucovorin 800 mg in NaCl 0.9% 315 New Bag 11/11/2021 6:19 PM KEEPER HEAD 800 mg 630 mL/hr mL IVPB 800 mg (rounded from 796 mg = 400 mg/m2 ? 1.99 m2 Treatment Plan BSA from Measured weight), intravenous, at 630 mL/hr, Administer over 30 Minutes, Once, On Sandra 11/11/21 at 1700, For 1 dose, Follows irinotecan liposome. NaCl 0.9 % bolus 1,000 mL New Bag 11/11/2021 3:31 PM KEEPER HEAD 1,000 mL 1000 mL/hr 1,000 mL, intravenous, at 1,000 mL/hr, Administer over 1 Hours, Once, On Sandra 11/11/21 at 1530, For 1 dose palonosetron injection 0.25 mg (ALOXI) Given 11/11/2021 3:32 PM KEEPER HEAD 0.25 mg 0.25 mg, intravenous, Once, On Sandra 11/11/21 at 1530, For 1 dose [facility] [id number] onvansertib capsule 20 Given 4:37 PM KEEPER HEAD 20 mg mg (PCM-075) 20 mg, oral, Once, On Sandra 11/11/21 at 1530, For 1 dose, This is the 20 [...] prior to liposomal irinotecan Infusion. [facility] [id number] onvansertib capsule 5 mg Given 11/11/2021 4:37 PM KEEPER HEAD 5 mg (PCM-075) 5 mg, oral, Once, On Asndra 11/11/21 at 1530, For 1 dose, This is the 5 [...] documented as of this encounter Care Teams Brakes Inspector Relationship Specialty Start Date End Date Elsewhere, Pcp PCP - General Family Medicine 08/12/20 documented as of this encounter
--- OUTSIDE RECORDS SUMMARY | 2022-06-18 16:05 | XMS_ITS | Encounter Summary ---
:[address] [facility] Address [address] [place] [address] Care Team Providers Name Role Phone Elsewhere, Pcp Primary Care Provider Unavailable Encounter Details Date Type Department Care Team Description 11/19/2021 Orders Only Department of Oncology in [place], [place] [address] [place] [phone] Social History Tobacco Use Types Packs/Day [...] How often do you attend hinduism or judaism services? 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 [address] [place] [phone] (Mj godoy) 06/22/2022 Infusion Oncology Maria Del Rosario Gomez APRN, C.N .P., M.S. [address] [place] [address] [phone] (Mj godoy) 06/29/2022 Lab Laboratory Medicine Maria Del Rosario Gomez AP RN, C.N.P., M.S. [address] [place] [address] [phone] (Mj godoy) 06/29/2022 Infusion Oncology Maria Del Rosario Gomez APRN, C.N .P., M.S. [address] [place] [address] [phone] (Mj godoy) documented as of this encounter Visit Diagnoses Not on filedocumented in this encounter Additional Health Concerns Assessment Noted Time PHQ-9 Depression Total Score: 2 10/01/2021 10:34 AM CS T documented as of this encounter Care Teams Data Solutions Architect Relationship Specialty Start Date End Date Elsewhere, Pcp PCP - General Family Medicine 08/12/20 documented as of this encounter
--- OUTSIDE RECORDS SUMMARY | 2022-06-18 16:05 | XMS_ITS | Encounter Summary ---
:1965 Author Organization [facility] Address [address] [place] [address] Care Team Providers Name Role Phone Elsewhere, Pcp Primary Care Provider Unavailable Reason for Visit Episode Based Medications (Routine) - Closed Specialty Diagnoses / Procedures Referred By Contact Refer red To Contact Diagnoses Malignant Neoplasm Of Pancreas (HCC) Secondary Malignant Neoplasm Liver (HCC) Deborah Murray M.B.B.S. Rst Onc Rogo Procedures ND ONDANSETRON HCL INJECTION ND DEXAMETHASONE SODIUM PHOS ND LEUCOVORIN CALCIUM INJECTION ND PALONOSETRON HCL ND INJ IRINOTECAN LIPOSOME 1 MG ND FLUOROURACIL INJECTION [address] [facility] [address] [place] [phone] Referral ID Status Reason Start Date Expiration Date Visits Requ ested Visits Authorized [id number] Closed 08/27/2021 08/27/2022 18 18 Encounter Details Date Type Department Care Team Description 11/11/2021 Office Visit Department of Oncology Maria Del Rosario Gomez Se Malignant Neoplasm Liver (HCC) (Primary Dx); in [facility], GUERO CRiazN.P., Malignant Neoplasm Of Pancreas (HCC) [place] M.S. [address] [facility] [address] [place] [phone] Social History Tobacco Use Types Packs/Day Years [...] How often do you attend scientology or oriental orthodox services? 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 documented as of this encounter Last Filed Vital Signs Vital Sign Reading Time Taken Comments Blood Pressure 95/62 11/11/2021 1:48 PM HALAL MEAT PACKER Pulse 86 11/11/2021 1:48 PM HALAL MEAT PACKER Temperature 36.2 ??C (97.2 ??F) 11/11/2021 1:48 PM HALAL MEAT PACKER Respiratory Rate 16 11/11/2021 1:48 PM HALAL MEAT PACKER Oxygen Saturation 98% 11/11/2021 1:48 PM HALAL MEAT PACKER Inhaled Oxygen Concentration - - Weight 75.5 kg (166 lb 7.2 oz) 11/11/2021 1:48 PM HALAL MEAT PACKER Height 176.7 cm (5' 9.57) 11/11/2021 1:48 PM HALAL MEAT PACKER Body Mass Index 24.18 11/11/2021 1:48 PM HALAL MEAT PACKER documented in this encounter Progress Notes Maria Del Rosario Gomez APRN, C.N.P., M.S. - 11/11/2021 1:50 PM CST SUBJECTIVE PRIMARY CARE PHYSICIAN ELSEWHERE, PCP LOCAL ONCOLOGIST No care forensics team director to display PRIMARY [place] ONCOLOGIST Deborah Murray M.B.B.S. Maria Del Rosario Gomez APRN, C.N.P., M.S. CHIEF COMPLAINT / REASON FOR VISIT Adam Campbell is a 56 y.o. male who presents for evaluation while being treated on a clinical study for metastatic pancreatic [...] (01/25/2021 - 03/02/2021) Site: Pancreas Technique: 3D [employer]OLOG[employer] INTERNSHIP Goal: Curative Planned Treatment Start Date: 01/25/2021 01/25/2021 - 03/01/2021 Chemotherapy Gemcitabine ( with Radiation ) Start Date: 01/25/2021 08/13/2021 Genetic Testing and Tumor Genotyping [facility] pancreas panel negative 08/27/2021 - Research Study Participant Research Study: A Study to Analyze Onvansertib Treatment in Patients with Metastatic Pancreatic Ductal Adenocarcinoma ([id number]) Treatment Protocol: [facility] CRDF-001 ( Onvansertib (Days 1-10) / Fluorouracil / Leucovorin / Nanoliposomal Irinotecan ) Interval History Mr. Campbell that he is feeling much better after having an additional week off a systemic therapy. His appetite been good. Energy level slowly improved. His taste has returned. He denies chest pain, shortness of breath, lower extremity edema, and temperature or night sweats. The following portions [...] Chronic Pain/Nonacute Pain. 60 tablet 0 ??? vgodmj-quvvcndm-gwovawj (Creon) 24,000-76,000-120,[address] capsule Take 2 capsules by mouth as directed. 2 capsules with meals and 1-2 capsules with snacks. 240 capsule 3 ??? loperamide (IMODIUM A-D) 2 mg capsule Take 1 capsule (2 mg total) by mouth 4 (four) times a day as needed for diarrhea. 30 capsule 3 ??? medical cannabis capsule Take [...] file prior to visit. REVIEW OF SYSTEMS All other systems reviewed and are negative. OBJECTIVE BP 95/62 (BP Location: Left arm, Patient Position: Sitting, Cuff Size: Regular) Pulse 86 Temp 36.2 ??C (Tympanic) Resp 16 Ht 176.7 cm Wt 75.5 kg SpO2 98% BMI 24.18 kg/m?? PHYSICAL EXAMINATION General: Well appearing 56 [...] this time it appears that he is prepared to start his next cycle of systemic therapy. He will continue on the same dose of the study drug. The liposomal Irinotecan he is requesting us to make a dose modification. I did have the study reviewed by the marketing coordinator and if down the road he finds that he is doing much better we can always consider reassess coli peoples of the dosage. I do believe all the side effects he was reporting to me last time were related to the liposomal Irinotecan. We will go ahead and give him fluids while he is getting his chemotherapy. He states that once he had IV fluids administered the headache had resolved. We will see him back as per study protocol. He is in full agreement with the plan. Denies any further questions or concerns. Has our telephone numberto contact us should they have any further questions or concerns. PATIENT EDUCATION Ready to learn, no apparent learning barriers were identified; learning preferences include listening. Explained diagnosis and treatment plan; patient expressed understanding of the content. ADMINISTRATIVE BILLING I personally spent 35 minutes in care of the patient today. Time includes both non face to face and face to face patient care. L MEAT PACKER documented in this encounter Plan of Treatment Upcoming Encounters Date Type Specialty Care Team Description 06/22/2022 Lab Laboratory Medicine Maria Del Rosario Gomez AP RN, C.N.P., M.S. [address] [place] [phone] ([place]) 06/22/2022 Infusion Oncology Maria Del Rosario Gomez APRN, C.N .P., M.S. [address] [place] [phone] ([place]) 06/29/2022 Lab Laboratory Medicine Maria Del Rosario Gomez AP RN, C.N.P., M.S. [address] [place] [phone] ([place]) 06/29/2022 Infusion Oncology Maria Del Rosario Gomez APRN, C.N .P., M.S. [address] [place] [phone] ([place]) documented as of this encounter Visit Diagnoses Diagnosis Secondary Malignant Neoplasm Liver (HCC) - Primary Malignant Neoplasm Of Pancreas (HCC) documented in this encounter Additional Health Concerns Assessment Noted Time PHQ-9 Depression Total Score: 2 10/01/2021 10:34 AM CS T documented as of this encounter Care Teams Aircraft Engineer Relationship Specialty Start Date End Date Elsewhere, Pcp PCP - General Family Medicine 08/12/20 documented as of this encounter
--- OUTSIDE RECORDS SUMMARY | 2022-06-18 16:05 | XMS_ITS | Encounter Summary ---
:1965 Author Organization [facility] Address [address] [place] [address] Care Team Providers Name Role Phone Elsewhere, Pcp Primary Care Provider Unavailable Encounter Details Date Type Department Care Team Description 11/11/2021 Orders Only Department of Oncology in [place], [place] [address] [facility] [address] [place] [phone] (Wo rk) Social History Tobacco Use Types [...] How often do you attend uatsdin or muslim services? 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 [address] [place] [phone] (Wo rk) 06/22/2022 Infusion Oncology Maria Del Rosario Gomez APRN, C.N .P., M.S. [address] [place] [address] [phone] (Wo rk) 06/29/2022 Lab Laboratory Medicine Maria Del Rosario Gomez AP RN, C.N.P., M.S. [address] [place] [phone] (Wo rk) 06/29/2022 Infusion Oncology Maria Del Rosario Gomez APRN, C.N .P., M.S. [address] [place] [phone] (Wo rk) documented as of this encounter Visit Diagnoses Not on filedocumented in this encounter Additional Health Concerns Assessment Noted Time PHQ-9 Depression Total Score: 2 10/01/2021 10:34 AM CS T documented as of this encounter Care Teams Locomotive Engineer Electric Relationship Specialty Start Date End Date Elsewhere, Pcp PCP - General Family Medicine 08/12/20 documented as of this encounter
--- OUTSIDE RECORDS SUMMARY | 2022-06-18 16:05 | XMS_ITS | Encounter Summary ---
:1965 Author Organization [facility] Address [address] [place] [address] Care Team Providers Name Role Phone Elsewhere, Pcp Primary Care Provider Unavailable Reason for Visit Episode Based Medications (Routine) - Closed Specialty Diagnoses / Procedures Referred By Contact Refer red To Contact Diagnoses Malignant Neoplasm Of Pancreas (HCC) Secondary Malignant Neoplasm Liver (HCC) Deborah Murray M.B.B.S. Rst Onc Rogo Procedures W[place] ONDANSETRON HCL INJECTION WV DEXAMETHASONE SODIUM PHOS WV LEUCOVORIN CALCIUM INJECTION WV PALONOSETRON HCL WV INJ IRINOTECAN LIPOSOME 1 MG WV FLUOROURACIL INJECTION [address] [facility] [address] [place] [phone] Referral ID Status Reason Start Date Expiration Date Visits Requ ested Visits Authorized [id number] Closed 08/27/2021 08/27/2022 18 18 Encounter Details Date Type Department Care Team Description 11/03/2021 Lab Department of Infusion Vladislav Zarco Secondary Malignant Neoplasm Liver (HCC) (Primary Dx); Therapy in Randall Perdomo M.D. Malignant Neoplasm Of Pancreas (HCC); [place] [address] [facility] Bacteremia [address] [place] [phone] (Wo rk) Social History Tobacco Use Types [...] How often do you attend yarsani or hindu services? Never 01/15/2021 Do you belong to [...] at Date Recorded Male 08/18/2021 2:55 PM INSTRUCTOR PHYSICAL documented as of this encounter Plan of Treatment Upcoming Encounters Date Type Specialty Care Team Description 06/22/2022 Lab Laboratory Medicine Maria Del Rosario Gomez AP RN, C.N.P., M.S. [address] [place] [phone] (Mj godoy) 06/22/2022 Infusion Oncology Maria Del Rosario Gomez APRN, C.N .P., M.S. [address] [place] [address] [phone] (Mj rk) 06/29/2022 Lab Laboratory Medicine Maria Del Rosario Gomez AP RN, C.N.P., M.S. [address] [place] [phone] (Mj rk) 06/29/2022 Infusion Oncology Maria Del Rosario Gomez APRN, C.N .P., M.S. [address] [place] [phone] (Mj rk) documented as of this encounter Procedures Procedure Name Priority Date/Time Associated Comments Diagnosis [facility], B Routine 11/03/2021 3:23 Secondary Re sults for this PM INSTRUCTOR PHYSICAL Malignant Neoplasm procedure are in Liver (HCC) the results Malignant Neoplasm section. Of Pancreas (HCC) CARBOHYDRATE AG 19-9 (CA Routine 11/03/2021 3:23 Secondary Results for this 19-9), S PM INSTRUCTOR PHYSICAL Malignant Neoplasm procedure are in Liver (HCC) the results Malignant Neoplasm section. Of Pancreas (HCC) CBC WITH DIFFERENTIAL, B Routine 11/03/2021 3:23 Secondary Results for this PM INSTRUCTOR PHYSICAL Malignant Neoplasm procedure are in Liver (HCC) the results Malignant Neoplasm section. Of Pancreas (HCC) ALANINE AMINOTRANSFERASE Routine 11/03/2021 3:23 Secondary Results for this (ALT), S/P PM INSTRUCTOR PHYSICAL Malignant Neoplasm procedure are in Liver (HCC) the results Malignant Neoplasm section. Of Pancreas (HCC) ASPARTATE Routine 11/03/2021 3:23 Secondary Results for this AMINOTRANSFERASE (AST), PM INSTRUCTOR PHYSICAL Malignant Neoplas m procedure are in S/P Liver (HCC) the results Malignant Neoplasm section. Of Pancreas (HCC) PHOSPHORUS (INORGANIC), Routine 11/03/2021 3:23 Secondary R esults for this S PM INSTRUCTOR PHYSICAL Malignant Neoplasm procedure are in Liver (HCC) the results Malignant Neoplasm section. Of Pancreas (HCC) ALKALINE PHOSPHATASE, Routine 11/03/2021 3:23 Secondary Res ults for this S/P PM INSTRUCTOR PHYSICAL Malignant Neoplasm procedure are in Liver (HCC) the results Malignant Neoplasm section. Of Pancreas (HCC) MAGNESIUM, S Routine 11/03/2021 3:23 Secondary Results for this PM INSTRUCTOR PHYSICAL Malignant Neoplasm procedure are in Liver (HCC) the results Malignant Neoplasm section. Of Pancreas (HCC) BILIRUBIN, TOT, S/P Routine 11/03/2021 3:23 Secondary Resul ts for this PM INSTRUCTOR PHYSICAL Malignant Neoplasm procedure are in Liver (HCC) the results Malignant Neoplasm section. Of Pancreas (HCC) ALBUMIN, S/P Routine 11/03/2021 3:23 Secondary Results for this PM INSTRUCTOR PHYSICAL Malignant Neoplasm procedure are in Liver (HCC) the results Malignant Neoplasm section. Of Pancreas (HCC) BASIC METABOLIC PANEL, Routine 11/03/2021 3:23 Secondary Re sults for this S/P PM INSTRUCTOR PHYSICAL Malignant Neoplasm procedure are in Liver (HCC) the results Malignant Neoplasm section. Of Pancreas (HCC) documented in this encounter Results Miscellaneous Research, B (11/03/2021 3:23 PM INSTRUCTOR PHYSICAL) P athologist Signature Number of 3 11/03/2021 HSS Specimens 3:23 PM INSTRUCTOR PHYSICAL Specimen Anatomical Collection Method Collection Time Receive d Time (Source) Location / / Volume Laterality Varies (Blood, 11/03/2021 3:23 PM 022 3:23 Venous) INSTRUCTOR PHYSICAL PM INSTRUCTOR PHYSICAL Vladislav Zarco M.D. LAB RESEARCH NO RESULT VERENICE MCFADDEN Performing Organization Address City/[facility] Phon e Number [facility] - [address] [place], [place] [address] [place] [address] Laboratories-[facility] [address] Carbohydrate Antigen 19-9 (CA 19-9) (11/03/2021 3:23 PM INSTRUCTOR PHYSICAL) athologist Signature Carbohydrate Ag 12 <35 U/mL 11/03/2021 [facility] 19-9, S 6:40 PM INSTRUCTOR PHYSICAL Comment: ----ADDITIONAL INFORMATION---- The testing method is an immunoenzymatic assay manufactured by [employer]. and performed on the [employer] 800. ? Values obtained with different assay met hods or kits may be different and cannot be used inte rchangeably. ? Test results cannot be interpreted as ab solute evidence for the presence or absence of malignant disease. Specimen Anatomical Collection Method Collection Time Receive d Time (Source) Location / / Volume Laterality Blood (Blood, 11/03/2021 3:23 PM 11/03/19 22 5:51 Venous) INSTRUCTOR PHYSICAL PM INSTRUCTOR PHYSICAL Vladislav Zarco M.D. LAB BLOOD ADD-ON Performing Organization Address City/[facility]/ZIP Code Phon e Number [facility] [address] [place], [place] [address] [facility] [address] Laboratory Medicine and Pathology [address] [place] (ABNORMAL) ALT (Alanine Aminotransferase) (11/03/2021 3:23 PM INSTRUCTOR PHYSICAL) [facility] gist Method Time Signature Alanine 118 (H) 7 - 55 11/03/2021 DTL Aminotransferase U/L 4:08 PM INSTRUCTOR PHYSICAL (ALT), S Specimen Anatomical Collection Method Collection Time Receive d Time (Source) Location / / Volume Laterality Blood (Blood, 11/03/2021 3:23 PM 11/03/19 3:50 Venous) INSTRUCTOR PHYSICAL PM INSTRUCTOR PHYSICAL Vladislav Zarco M.D. LAB BLOOD ADD-ON Performing Organization Address City/State/ZIP Code Phon e Number [facility] - [address] [place], [place] [address] [place] [phone] [place] [address] (ABNORMAL) AST (Aspartate Aminotransferase) (11/03/2021 3:23 PM INSTRUCTOR PHYSICAL) Patholo gist Method Time Signature Aspartate 150 (H) 8 - 48 11/03/2021 DTL Aminotransferase U/L 4:09 PM INSTRUCTOR PHYSICAL (AST), S Specimen Anatomical Collection Method Collection Time Receive d Time (Source) Location / / Volume Laterality Blood (Blood, 11/03/2021 3:23 PM 11/03/19 3:50 Venous) INSTRUCTOR PHYSICAL PM INSTRUCTOR PHYSICAL Vladislav Zarco M.D. LAB BLOOD ADD-ON Performing Organization Address City/State/ZIP Code Phon e Number [facility] - [address] Bilirubin, Total (11/03/2021 3:23 PM INSTRUCTOR PHYSICAL) P athologist Signature Bilirubin, 1.0 <=1.2 mg/dL 11/03/2021 DTL Total, S 4:09 PM INSTRUCTOR PHYSICAL Specimen Anatomical Collection Method Collection Time Receive d Time (Source) Location / / Volume Laterality Blood (Blood, 11/03/2021 3:23 PM 11/03/19 3:50 Venous) INSTRUCTOR PHYSICAL PM INSTRUCTOR PHYSICAL Vladislav Zarco M.D. LAB BLOOD ADD-ON Performing Organization Address City/State/ZIP [facility] Phon e Number [facility] - [address] (ABNORMAL) Alkaline Phosphatase (11/03/2021 3:23 PM INSTRUCTOR PHYSICAL) P athologist Signature Alkaline 392 (H) 40 - 129 11/03/2021 DTL Phosphatase, S U/L 4:14 PM INSTRUCTOR PHYSICAL Specimen Anatomical Collection Method Collection Time Receive d Time (Source) Location / / Volume Laterality Blood (Blood, 11/03/2021 3:23 PM 11/03/19 3:50 Venous) INSTRUCTOR PHYSICAL PM INSTRUCTOR PHYSICAL Vladislav Zarco M.D. LAB BLOOD ADD-ON Performing Organization Address City/State/ZIP Code Phon e Number [facility] - [address] [place], [place] [address] [place], [place] [phone] [place] [address] Magnesium (11/03/2021 3:23 PM INSTRUCTOR PHYSICAL) P athologist Signature Magnesium, S 2.0 1.7 - 2.3 11/03/2021 DTL mg/dL 4:09 PM INSTRUCTOR PHYSICAL Specimen Anatomical Collection Method Collection Time Receive d Time (Source) Location / / Volume Laterality Blood (Blood, 11/03/2021 3:23 PM 11/03/19 3:50 Venous) INSTRUCTOR PHYSICAL PM INSTRUCTOR PHYSICAL Vladislav Zarco M.D. LAB BLOOD ADD-ON Performing Organization Address City/State/ZIP Code Phon e Number [facility] - [address] [place], [place] [address] [place] [address] [facility] [address] Phosphorus Inorganic (11/03/2021 3:23 PM INSTRUCTOR PHYSICAL) athologist Signature Phosphorus 3.3 2.5 - 4.5 11/03/2021 DTL (Inorganic), S mg/dL 4:09 PM INSTRUCTOR PHYSICAL Specimen Anatomical Collection Method Collection Time Receive d Time (Source) Location / / Volume Laterality Blood (Blood, 11/03/2021 3:23 PM 11/03/19 3:50 Venous) INSTRUCTOR PHYSICAL PM INSTRUCTOR PHYSICAL Vladislav Zarco M.D. LAB BLOOD ADD-ON Performing Organization Address City/State/ZIP Code Phon e Number [facility] - [address] [place], [place] [address] [place] [address] [facility] [address] Albumin (11/03/2021 3:23 PM INSTRUCTOR PHYSICAL) P athologist Signature Albumin, S 3.6 3.5 - 5.0 11/03/2021 DTL g/dL 4:09 PM INSTRUCTOR PHYSICAL Specimen Anatomical Collection Method Collection Time Receive d Time (Source) Location / / Volume Laterality Blood (Blood, 11/03/2021 3:23 PM 11/03/19 3:50 Venous) INSTRUCTOR PHYSICAL PM INSTRUCTOR PHYSICAL Vladislav Zarco M.D. LAB BLOOD ADD-ON Performing Organization Address City/State/ZIP Code Phon e Number [facility] - 200 [place], [place] [address] [facility] [place] [address] Laboratories-[facility] 200 [facility] Basic Metabolic Panel (11/03/2021 3:23 PM INSTRUCTOR PHYSICAL) P athologist Signature Potassium, S 3.8 3.6 - 5.2 11/03/2021 DTL mmol/L 4:09 PM INSTRUCTOR PHYSICAL Sodium, S 143 135 - 145 11/03/2021 DTL mmol/L 4:09 PM INSTRUCTOR PHYSICAL Chloride, S 106 98 - 107 11/03/2021 DTL mmol/L 4:09 PM INSTRUCTOR PHYSICAL Bicarbonate, S 29 22 - 29 11/03/2021 DTL mmol/L 4:09 PM INSTRUCTOR PHYSICAL Anion Gap 8 7 - 15 11/03/2021 DTL 4:09 PM INSTRUCTOR PHYSICAL BUN (Blood Urea 9 8 - 24 11/03/2021 DTL Nitrogen), S mg/dL 4:09 PM INSTRUCTOR PHYSICAL Creatinine 0.85 0.74 - 11/03/2021 DTL 1.35 mg/dL 4:09 PM INSTRUCTOR PHYSICAL eGFR-Non >90 >=60 11/03/2021 DTL Black/ mL/min/BSA 4:09 PM INSTRUCTOR PHYSICAL [place] Comment: ----ADDITIONAL INFORMATION---- Estimated GFR calculated using the 2009 CKD_EPI creatinine equation. eGFR-Black/ >90 >=60 mL/min/BSA 2021 4:09 PM INSTRUCTOR PHYSICAL DTL Comment: ----ADDITIONAL INFORMATION---- Estimated GFR calculated using the 2009 CKD_EPI creatinine equation. Calcium, Total, S 9.2 8.6 - 10.0 mg/dL 11/03/2021 4:09 PM INSTRUCTOR PHYSICAL DTL Glucose, S 95 70 - 140 mg/dL 11/03/2021 4:09 PM INSTRUCTOR PHYSICAL D TL Specimen Anatomical Collection Method Collection Time Receive d Time (Source) Location / / Volume Laterality Blood (Blood, 11/03/2021 3:23 PM 11/03/19 3:50 Venous) INSTRUCTOR PHYSICAL PM INSTRUCTOR PHYSICAL Vladislav Zarco M.D. LAB BLOOD ADD-ON Performing Organization Address City/State/ZIP Code Phon e Number [facility] - 200 [place], [place] [address] [facility] [place] [address] Laboratories-[facility] 200 [facility] (ABNORMAL) CBC with Differential, Blood (11/03/2021 3:23 PM INSTRUCTOR PHYSICAL) [facility] gist Method Time Signature Hemoglobin 11.7 (L) 13.2 - 11/03/2021 DTL 16.6 g/dL 3:49 PM INSTRUCTOR PHYSICAL Hematocrit 34.8 (L) 38.3 - 11/03/2021 DTL 48.6 % 3:49 PM INSTRUCTOR PHYSICAL Erythrocytes 4.14 (L) 4.35 - 11/03/2021 DTL 5.65 3:49 PM INSTRUCTOR PHYSICAL x10(12)/L MCV 84.1 78.2 - 11/03/2021 DTL 97.9 fL 3:49 PM INSTRUCTOR PHYSICAL RBC Distrib Width 15.9 (H) 11.8 - 11/03/2021 DTL 14.5 % 3:49 PM INSTRUCTOR PHYSICAL Platelet Count 286 135 - 317 11/03/2021 DTL x10(9)/L 3:49 PM INSTRUCTOR PHYSICAL Leukocytes 4.3 3.4 - 9.6 11/03/2021 DTL x10(9)/L 3:49 PM INSTRUCTOR PHYSICAL Neutrophils 2.99 1.56 - 11/03/2021 DTL 6.45 4:43 PM INSTRUCTOR PHYSICAL x10(9)/L Comment: Rechecked Lymphocytes 0.65 (L) 0.95 - 3.07 x10(9)/L 11/03/2021 4:43 P M INSTRUCTOR PHYSICAL DTL Monocytes 0.55 0.26 - 0.81 x10(9)/L 11/03/2021 4:43 PM INSTRUCTOR PHYSICAL DTL Eosinophils 0.11 0.03 - 0.48 x10(9)/L 11/03/2021 4:43 P M INSTRUCTOR PHYSICAL DTL Basophils <0.03 0.01 - 0.08 x10(9)/L 11/03/2021 4:43 PM INSTRUCTOR PHYSICAL DTL Specimen Anatomical Collection Method Collection Time Receive d Time (Source) Location / / Volume Laterality Blood (Blood, 11/03/2021 3:23 PM 11/03/19 3:38 Venous) INSTRUCTOR PHYSICAL PM INSTRUCTOR PHYSICAL Vladislav Zarco M.D. LAB BLOOD ADD-ON Performing Organization Address City/State/ZIP Code Phon e Number [facility] - [address] [place], [place] [address] [facility] [place] [address] Laboratories-[facility] [address] documented in this encounter Visit Diagnoses Diagnosis Secondary Malignant Neoplasm Liver (HCC) - Primary Malignant Neoplasm Of Pancreas (HCC) Bacteremia documented in this encounter Administered Medications Inactive Administered Medications - up to 3 most recent administrations Medication Order MAR Action Action Date Dose Rate Site heparin flush 500 Units Given 11/03/2021 3:24 PM INSTRUCTOR PHYSICAL 500 Units 500 Units, intra-catheter, As needed, line care, Starting on Mon11/03/21 at 1510, When no infusion to maintain patency: For IVAD accessed, not in use, and/or prior to hospital discharge, flush every 7 days after 0.9% preservative-free NaCL flush. For IVAD NOT accessed or used, flush every 4 weeks after 0.9% preservative-free NaCL flush. sodium chloride 0.9 % injection 10 mL Given 11/03/2021 3:24 PM INSTRUCTOR PHYSICAL 10 mL 10 mL, intra-catheter, As needed, line care, Starting on Mon11/03/21 at 1510, When IVAD Accessed and in Use: Flush prior to and following infusion, between multiple consecutive infusions, and prior to blood sampling. sodium chloride 0.9 % injection 20 mL Given 11/03/2021 3:24 PM INSTRUCTOR PHYSICAL 20 mL 20 mL, intra-catheter, As needed, line care, Starting on Mon11/03/21 at 1510, When IVAD Accessed and in Use: Flush post blood transfusion or post blood sampling. documented in this encounter Additional Health Concerns Assessment Noted Time PHQ-9 Depression Total Score: 2 10/01/2021 10:34 AM CS T documented as of this encounter Care Teams Fur Pointer Relationship Specialty Start Date End Date Elsewhere, Pcp PCP - General Family Medicine 08/12/20 documented as of this encounter
--- OUTSIDE RECORDS SUMMARY | 2022-06-18 16:05 | XMS_ITS | Encounter Summary ---
:1965 Author Organization [facility] Address [address] [place] [address] Care Team Providers Name Role Phone Elsewhere, Pcp Primary Care Provider Unavailable Encounter Details Date Type Department Care Team Description 11/05/2021 Orders Only Department of Oncology in [facility] [place], [place] [address] [place] [phone] Social History Tobacco Use Types Packs/Day [...] How often do you attend rastafarian or gnosticist services? 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 [address] [place] [phone] (Mj godoy) 06/22/2022 Infusion Oncology Maria Del Rosario Gomez APRN, C.N .P., M.S. [address] [place] [phone] (Mj godoy) 06/29/2022 Lab Laboratory Medicine Maria Del Rosario Gomez AP RN, C.N.P., M.S. [address] [place] [phone] (Mj godoy) 06/29/2022 Infusion Oncology Maria Del Rosario Gomez APRN, C.N .P., M.S. [address] [place] [phone] (Mj godoy) documented as of this encounter Visit Diagnoses Not on filedocumented in this encounter Additional Health Concerns Assessment Noted Time PHQ-9 Depression Total Score: 2 10/01/2021 10:34 AM CS T documented as of this encounter Care Teams Pro Shop Attendant Relationship Specialty Start Date End Date Elsewhere, Pcp PCP - General Family Medicine 08/12/20 documented as of this encounter
--- OUTSIDE RECORDS SUMMARY | 2022-06-18 16:05 | XMS_ITS | Encounter Summary ---
:1965 Author Organization [facility] Address [address] [place] [address] Care Team Providers Name Role Phone Elsewhere, Pcp Primary Care Provider Unavailable Reason for Visit Episode Based Medications (Routine) - Authorized Specialty Diagnoses / Procedures Referred By Contact Refer red To Contact Medical Oncology / Diagnoses Malignant Neoplasm Of Pancreas (HCC) Vladislav Zarco Rst Inf Onc Rogo Oncology Procedures ONCBCN INFUSION APPOINTMENT REQUEST 25 [place] ONDANSETRON HCL INJECTION WY LEUCOVORIN CALCIUM INJECTION WY FLUOROURACIL INJECTION ONC THER SUMMER Pereira M.D. 200 [facility] [address] [place] [phone] Referral ID Status Reason Start Date Expiration Date Visits V isits Requested Authorized [id number] Authorized 08/27/2021 08/27/2022 10 10 Encounter Details Date Type Department Care Team Description 11/04/2021 Infusion Department of Oncology Vladislav Zarco Malignant Neoplasm Of Pancreas (HCC) (Primary Dx); in [facility] elke Pereira M.D. Secondary Malignant Neoplasm Liver (HCC) ; [address] [place] [address] [address] [place] [phone] (Wo rk) Social History Tobacco Use Types [...] er 01/15/2021 How often do you attend moravian or restorationism services? 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 [address] [place] [phone] (Mj godoy) 06/22/2022 Infusion Oncology Maria Del Rosario Gomez APRN, C.N .P., M.S. [address] [place] [phone] (Mj godoy) 06/29/2022 Lab Laboratory Medicine Maria Del Rosario Gomez AP RN, C.N.P., M.S. [address] [place] [phone] (Mj godoy) 06/29/2022 Infusion Oncology Maria Del Rosario Gomez APRN, C.N .P., M.S. [address] [place] [phone] (Mj godoy) documented as of this encounter Visit Diagnoses Diagnosis Malignant Neoplasm Of Pancreas (HCC) - P rimary Secondary Malignant Neoplasm Liver (HCC) Bacteremia documented in this encounter Administered Medications Inactive Administered Medications - up to 3 most recent administrations Medication Order MAR Action Action Date Dose Rate Site NaCl 0.9 % bolus 1,000 mL New Bag 11/04/2021 10:15 AM 1,000 mL 1000 mL/hr 1,000 mL, intravenous, at MANAGER SOCIAL 1,000 mL/hr, Administer over 1 Hours, Once, On Sandra 11/04/21 at 0945, For 1 dose documented in this encounter Additional Health Concerns Assessment Noted Time PHQ-9 Depression Total Score: 2 10/01/2021 10:34 AM CS T documented as of this encounter Care Teams [employer] Director Relationship Specialty Start Date End Date Elsewhere, Pcp PCP - General Family Medicine 08/12/20 documented as of this encounter
--- OUTSIDE RECORDS SUMMARY | 2022-06-18 16:05 | XMS_ITS | Encounter Summary ---
:1965 Author Organization [facility] Address [address] [place] [address] Care Team Providers Name Role Phone Elsewhere, Pcp Primary Care Provider Unavailable Reason for Visit Episode Based Medications (Routine) - Closed Specialty Diagnoses / Procedures Referred By Contact Refer red To Contact Diagnoses Malignant Neoplasm Of Pancreas (HCC) Secondary Malignant Neoplasm Liver (HCC) Deborah Murray M.B.B.S. Rst Onc Rogo Procedures AR ONDANSETRON HCL INJECTION AR DEXAMETHASONE SODIUM PHOS AR LEUCOVORIN CALCIUM INJECTION AR PALONOSETRON HCL AR INJ IRINOTECAN LIPOSOME 1 MG AR FLUOROURACIL INJECTION [address] [facility] [address] [place] [id number] Referral ID Status Reason Start Date Expiration Date Visits Requ ested Visits Authorized [id number] Closed 08/27/2021 08/27/2022 18 18 Encounter Details Date Type Department Care Team Description 11/24/2021 Lab Department of Infusion Vladislav Zarco Secondary Malignant Neoplasm Liver (HCC) (Primary Dx); Therapy in Randall Perdomo M.D. Malignant Neoplasm Of Pancreas (HCC); [place] [address] [facility] Bacteremia [address] [place] [phone] [id number] (Wo rk) Social History Tobacco Use Types [...] How often do you attend episcopal or scientologist services? Never 01/15/2021 Do you [...] Date Recorded Male 08/18/2021 2:55 PM [employer] documented as of this encounter Plan of Treatment Upcoming Encounters Date Type Specialty Care Team Description 06/22/2022 Lab Laboratory Medicine Maria Del Rosario Gomez AP RN, C.N.P., M.S. [address] [place] [phone] (Mj godoy) 06/22/2022 Infusion Oncology Maria Del Rosario Gomez APRN, C.N .P., M.S. [address] [place] [address] [phone] (Mj rk) 06/29/2022 Lab Laboratory Medicine Maria Del Rosario Gomez AP RN, C.N.P., M.S. [address] [place] [address] [phone] (Mj rk) 06/29/2022 Infusion Oncology Maria Del Rosario Gomez APRN, C.N .P., M.S. [address] [place] [address] [phone] (Mj godoy) documented as of this encounter Procedures Procedure Name Priority Date/Time Associated Comments Diagnosis CBC WITH DIFFERENTIAL, B Routine 11/24/2021 6:42 Secondary Results for this AM CDT Malignant Neoplasm procedure are in Liver (HCC) the results Malignant Neoplasm section. Of Pancreas (HCC) ALANINE AMINOTRANSFERASE Routine 11/24/2021 6:42 Secondary Results for this (ALT), S/P AM CDT Malignant Neoplasm procedure are in Liver (HCC) the results Malignant Neoplasm section. Of Pancreas (HCC) ASPARTATE Routine 11/24/2021 6:42 Secondary Results for this AMINOTRANSFERASE (AST), AM CDT Malignant Neoplas m procedure are in S/P Liver (HCC) the results Malignant Neoplasm section. Of Pancreas (HCC) PHOSPHORUS (INORGANIC), Routine 11/24/2021 6:42 Secondary R esults for this S AM CDT Malignant Neoplasm procedure are in Liver (HCC) the results Malignant Neoplasm section. Of Pancreas (HCC) ALKALINE PHOSPHATASE, Routine 11/24/2021 6:42 Secondary Res ults for this S/P AM CDT Malignant Neoplasm procedure are in Liver (HCC) the results Malignant Neoplasm section. Of Pancreas (HCC) MAGNESIUM, S Routine 11/24/2021 6:42 Secondary Results for this AM CDT Malignant Neoplasm procedure are in Liver (HCC) the results Malignant Neoplasm section. Of Pancreas (HCC) BILIRUBIN, TOT, S/P Routine 11/24/2021 6:42 Secondary Resul ts for this AM CDT Malignant Neoplasm procedure are in Liver (HCC) the results Malignant Neoplasm section. Of Pancreas (HCC) ALBUMIN, S/P Routine 11/24/2021 6:42 Secondary Results for this AM CDT Malignant Neoplasm procedure are in Liver (HCC) the results Malignant Neoplasm section. Of Pancreas (HCC) BASIC METABOLIC PANEL, Routine 11/24/2021 6:42 Secondary Re sults for this S/P AM CDT Malignant Neoplasm procedure are in Liver (HCC) the results Malignant Neoplasm section. Of Pancreas (HCC) documented in this encounter Results ALT (Alanine Aminotransferase) (11/24/2021 6:42 AM CDT) [facility] gist Method Time Signature Alanine 49 7 - 55 11/24/2021 DTL Aminotransferase U/L 7:38 AM CDT (ALT), S Specimen Anatomical Collection Method Collection Time Receive d Time (Source) Location / / Volume Laterality Blood (Blood, 11/24/2021 6:42 AM 11/25/19 22 7:17 Venous) CDT AM CDT Vladislav Zarco M.D. LAB BLOOD ADD-ON Performing Organization Address City/[facility] Phon e Number [facility] - [id number] [place] [address] AST (Aspartate Aminotransferase) (11/24/2021 6:42 AM CDT) Patholo gist Method Time Signature Aspartate 36 8 - 48 11/24/2021 DTL Aminotransferase U/L 7:38 AM CDT (AST), S Specimen Anatomical Collection Method Collection Time Receive d Time (Source) Location / / Volume Laterality Blood (Blood, 11/24/2021 6:42 AM 11/25/19 22 7:16 Venous) CDT AM CDT Vladislav Zarco M.D. LAB BLOOD ADD-ON Performing Organization Address City/[facility]/ZIP Code Phon e Number [facility] - [address] [place] [address] [address] [place] [address] Bilirubin, Total (11/24/2021 6:42 AM CDT) P athologist Signature Bilirubin, 0.5 <=1.2 mg/dL 11/24/2021 DTL Total, S 7:38 AM CDT Specimen Anatomical Collection Method Collection Time Receive d Time (Source) Location / / Volume Laterality Blood (Blood, 11/24/2021 6:42 AM 11/25/19 22 7:16 Venous) CDT AM CDT Vladislav Zarco M.D. LAB BLOOD ADD-ON Performing Organization Address City/[facility] Phon e Number [facility] - 200 [place], [place] [address] [address] [place], [place] [phone] [place] [address] (ABNORMAL) Alkaline Phosphatase (11/24/2021 6:42 AM CDT) P athologist Signature Alkaline 186 (H) 40 - 129 11/24/2021 DTL Phosphatase, S U/L 7:38 AM CDT Specimen Anatomical Collection Method Collection Time Receive d Time (Source) Location / / Volume Laterality Blood (Blood, 11/24/2021 6:42 AM 11/25/19 22 7:16 Venous) CDT AM CDT Vladislav Zarco M.D. LAB BLOOD ADD-ON Performing Organization Address City/[facility]/ZIP Code Phon e Number [facility] - [address] [place], [place] [address] [facility] [place] [address] [facility] [address] [facility] Magnesium (11/24/2021 6:42 AM CDT) P athologist Signature Magnesium, S 2.0 1.7 - 2.3 11/24/2021 DTL mg/dL 7:38 AM CDT Specimen Anatomical Collection Method Collection Time Receive d Time (Source) Location / / Volume Laterality Blood (Blood, 11/24/2021 6:42 AM 11/25/19 22 7:16 Venous) CDT AM CDT Vladislav Zarco M.D. LAB BLOOD ADD-ON Performing Organization Address City/[facility]/ZIP Code Phon e Number [facility] - [address] [place], [place] [address] [place], [place] [phone] [place] [address] Phosphorus Inorganic (11/24/2021 6:42 AM CDT) P athologist Signature Phosphorus 4.3 2.5 - 4.5 11/24/2021 DTL (Inorganic), S mg/dL 7:38 AM CDT Specimen Anatomical Collection Method Collection Time Receive d Time (Source) Location / / Volume Laterality Blood (Blood, 11/24/2021 6:42 AM 11/25/19 22 7:16 Venous) CDT AM CDT Vladislav Zarco M.D. LAB BLOOD ADD-ON Performing Organization Address City/State/ZIP Code Phon e Number [facility] - [address] [place], [place] [address] [place] [address] [place], [place] [phone] [place] [address] [address] [facility] Albumin (11/24/2021 6:42 AM CDT) P athologist Signature Albumin, S 4.2 3.5 - 5.0 11/24/2021 DTL g/dL 7:38 AM CDT Specimen Anatomical Collection Method Collection Time Receive d Time (Source) Location / / Volume Laterality Blood (Blood, 11/24/2021 6:42 AM 11/25/19 7:16 Venous) CDT AM CDT Vladislav Zarco M.D. LAB BLOOD ADD-ON Performing Organization Address City/State/ZIP Code Phon e Number [facility] - [address] [place] [phone] [facility] [place] [address] [facility] 200 [facility] Basic Metabolic Panel (11/24/2021 6:42 AM CDT) P athologist Signature Potassium, S 4.1 3.6 - 5.2 11/24/2021 DTL mmol/L 7:38 AM CDT Sodium, S 141 135 - 145 11/24/2021 DTL mmol/L 7:38 AM CDT Chloride, S 104 98 - 107 11/24/2021 DTL mmol/L 7:38 AM CDT Bicarbonate, S 26 22 - 29 11/24/2021 DTL mmol/L 7:38 AM CDT Anion Gap 11 7 - 15 11/24/2021 DTL 7:38 AM CDT BUN (Blood Urea 13 8 - 24 11/24/2021 DTL Nitrogen), S mg/dL 7:38 AM CDT Creatinine 0.92 0.74 - 11/24/2021 DTL 1.35 mg/dL 7:38 AM CDT eGFR-Non >90 >=60 11/24/2021 DTL Black/ mL/min/BSA 7:38 AM CDT Citizen Of [place] Comment: ----ADDITIONAL INFORMATION---- Estimated GFR calculated using the 2009 CKD_EPI creatinine equation. eGFR-Black/ >90 >=60 mL/min/BSA 2021 7:38 AM CDT DTL Comment: ----ADDITIONAL INFORMATION---- Estimated GFR calculated using the 2009 CKD_EPI creatinine equation. Calcium, Total, S 9.3 8.6 - 10.0 mg/dL 11/24/2021 7:38 AM CDT DTL Glucose, S 99 70 - 140 mg/dL 11/24/2021 7:38 AM CDT D TL Specimen Anatomical Collection Method Collection Time Receive d Time (Source) Location / / Volume Laterality Blood (Blood, 11/24/2021 6:42 AM 11/25/19 22 7:16 Venous) CDT AM CDT Vladislav Zarco M.D. LAB BLOOD ADD-ON Performing Organization Address City/State/ZIP Code Phon e Number [facility] - [address] [place], [place] [address] [facility] [place] [address] [facility] 200 [facility] (ABNORMAL) CBC with Differential, Blood (11/24/2021 6:42 AM CDT) [facility] gist Method Time Signature Hemoglobin 11.9 (L) 13.2 - 11/24/2021 DTL 16.6 g/dL 7:03 AM CDT Hematocrit 36.0 (L) 38.3 - 11/24/2021 DTL 48.6 % 7:03 AM CDT Erythrocytes 4.22 (L) 4.35 - 11/24/2021 DTL 5.65 7:03 AM CDT x10(12)/L MCV 85.3 78.2 - 11/24/2021 DTL 97.9 fL 7:03 AM CDT RBC Distrib Width 16.9 (H) 11.8 - 11/24/2021 DTL 14.5 % 7:03 AM CDT Platelet Count 163 135 - 317 11/24/2021 DTL x10(9)/L 7:03 AM CDT Leukocytes 4.8 3.4 - 9.6 11/24/2021 DTL x10(9)/L 7:03 AM CDT Neutrophils 3.51 1.56 - 11/24/2021 DTL 6.45 7:03 AM CDT x10(9)/L Lymphocytes 0.52 (L) 0.95 - 11/24/2021 DTL 3.07 7:03 AM CDT x10(9)/L Monocytes 0.53 0.26 - 11/24/2021 DTL 0.81 7:03 AM CDT x10(9)/L Eosinophils 0.18 0.03 - 11/24/2021 DTL 0.48 7:03 AM CDT x10(9)/L Basophils <0.03 0.01 - 11/24/2021 DTL 0.08 7:03 AM CDT x10(9)/L Specimen Anatomical Collection Method Collection Time Receive d Time (Source) Location / / Volume Laterality Blood (Blood, 11/24/2021 6:42 AM 11/25/19 6:52 Venous) CDT AM CDT Vladislav Zarco M.D. LAB BLOOD ADD-ON Performing Organization Address City/State/ZIP Code Phon e Number [facility] - [address] [place], [place] [address] [facility] [place] [address] Laboratories[facility] [address] documented in this encounter Visit Diagnoses Diagnosis Secondary Malignant Neoplasm Liver (HCC) - Primary Malignant Neoplasm Of Pancreas (HCC) Bacteremia documented in this encounter Administered Medications Inactive Administered Medications - up to 3 most recent administrations Medication Order MAR Action Action Date Dose Rate Site heparin flush 500 Units Given 11/24/2021 6:44 AM CDT 500 Units 500 Units, intra-catheter, As needed, line care, Starting on Mon11/24/21 at 0632, When no infusion to maintain patency: For IVAD accessed, not in use, and/or prior to hospital discharge, flush every 7 days after 0.9% preservative-free NaCL flush. For IVAD NOT accessed or used, flush every 4 weeks after 0.9% preservative-free NaCL flush. sodium chloride 0.9 % injection 10 mL Given 11/24/2021 6:44 AM CDT 10 mL 10 mL, intra-catheter, As needed, line care, Starting on Mon11/24/21 at 0632, When IVAD Accessed and in Use: Flush prior to and following infusion, between multiple consecutive infusions, and prior to blood sampling. sodium chloride 0.9 % injection 20 mL Given 11/24/2021 6:44 AM CDT 20 mL 20 mL, intra-catheter, As needed, line care, Starting on Mon11/24/21 at 0632, When IVAD Accessed and in Use: Flush post blood transfusion or post blood sampling. documented in this encounter Additional Health Concerns Assessment Noted Time PHQ-9 Depression Total Score: 2 10/01/2021 10:34 AM CS T documented as of this encounter Care Teams Principal Clerk Relationship Specialty Start Date End Date Elsewhere, Pcp PCP - General Family Medicine 08/12/20 documented as of this encounter
--- OUTSIDE RECORDS SUMMARY | 2022-06-18 16:05 | XMS_ITS | Encounter Summary ---
:1965 Author Organization [facility] Address [address] [place] [id number] Care Team Providers Name Role Phone Elsewhere, Pcp Primary Care Provider Unavailable Reason for Referral Outpatient (Routine) Specialty Diagnoses / Procedures Referred By Contact Refer red To Contact Oncology Maria Del Rosario Gomez APRN, C.N.P.[facility] [address] [place] [phone] Referral ID Status Reason Start Date Expiration Date Visits Requ ested Visits Authorized Electronically signed by Maria Del Rosario Gomez APRN, C.N.P.[facility]. at 11/05/2021 10:53 AM BRIM CUTTER Reason for Visit Episode Based Medications (Routine) [...] 1 MG RI FLUOROURACIL INJECTION [address] [facility] [address] [place] [phone] Referral ID Status Reason Start Date Expiration Date Visits Requ ested Visits Authorized [id number] Closed 08/27/2021 08/27/2022 18 18 Encounter Details Date Type Department Care Team Description 11/04/2021 Office Visit Department of Oncology Maria Del Rosario Gomez Se Malignant Neoplasm Liver (HCC) (Primary Dx); in [place], , Jeremie JACK., Malignant Neoplasm Of Pancreas (HCC) [place] M[facility] 200 [address] [place] [phone] Social History Tobacco Use Types Packs/Day Years [...] How often do you attend protestant or roman catholic services? Never 01/15/2021 Do [...] at Date Recorded Male 08/18/2021 2:55 PM BRIM CUTTER documented as of this encounter Last Filed Vital Signs Vital Sign Reading Time Taken Comments Blood Pressure 117/73 11/04/2021 7:59 AM BRIM CUTTER Pulse 67 11/04/2021 7:59 AM BRIM CUTTER Temperature 36.3 ??C (97.3 ??F) 11/04/2021 7:59 AM BRIM CUTTER Respiratory Rate 16 11/04/2021 7:59 AM BRIM CUTTER Oxygen Saturation 99% 11/04/2021 7:59 AM BRIM CUTTER Inhaled Oxygen Concentration - - Weight 75.8 kg (167 lb 1.7 oz) 11/04/2021 7:59 AM BRIM CUTTER Height 176.8 cm (5' 9.61) 11/04/2021 7:59 AM BRIM CUTTER Body Mass Index 24.25 11/04/2021 7:59 AM BRIM CUTTER documented in this encounter Progress Notes Maria Del Rosario Gomez APRN, C.N.P., M.S. - 11/04/2021 8:10 AM CST SUBJECTIVE PRIMARY CARE PHYSICIAN ELSEWHERE, PCP LOCAL ONCOLOGIST No care team supervisor to display PRIMARY ENNIS ONCOLOGIST Deborah Murray M.B.B.Manuel. Maria Del Rosario [...] (01/25/2021 - 03/02/2021) Site: Pancreas Technique: 3D [facility] REPORTER Goal: Curative Planned Treatment Start Date: 01/25/2021 01/25/2021 - 03/01/2021 Chemotherapy Gemcitabine ( with Radiation ) Start Date: 01/25/2021 08/13/2021 Genetic Testing and Tumor Genotyping [employer] pancreas panel negative 08/27/2021 - Research Study Participant Research Study: A Study to Analyze Onvansertib Treatment in Patients with Metastatic Pancreatic Ductal Adenocarcinoma ([id number]) Treatment Protocol: [facility] CRDF-001 ( Onvansertib (Days 1-10) / Fluorouracil / Leucovorin / Nanoliposomal Irinotecan ) Interval History Mr. Campbell from significant amount of diarrhea since his last cycle of chemotherapy. He was hospitalized as a result of abdominal pain. He continues to experience a headache that is located behind his eyes. He denies a past medical history of headaches. He believes is a result of being dehydrated. He does feel quite nauseated and his energy level has decreased. He does report increased runny nose. Neuropathy that he is experiencing previously has totally resolved. The following portions of the patient's history [...] Chronic Pain/Nonacute Pain. 60 tablet 0 ??? [id number]-[id number] (Creon) 24,000-76,000-120,[address] capsule Take [...] mg daily at bedtime.) 30 tablet 0 Current Facility-Administered Medications on File Prior to Visit Medication Dose Route Frequency Provider Last Rate Last Admin ??? [COMPLETED] NaCl 0.9 % bolus 1,000 mL 1,000 mL intravenous Once Maria Del Rosario Gomez APRN, C.N.P.,M.S. Stopped at 11/04/21 1118 ??? [DISCONTINUED] heparin flush 500 Units 500 Units intra-catheter PRN Deborah Murray M.B.B.S. ??? [DISCONTINUED] sodium chloride 0.9 % injection 10 mL 10 mL intra-catheter PRN Deborah Murray M.B.B.S. ??? [DISCONTINUED] sodium chloride 0.9 % injection 20 mL 20 mL intra-catheter PRN Deborah Murray M.B.B.S. VITALS Vitals: 11/04/21 0759 BP: 117/73 Pulse: 67 Resp: 16 Temp: 36.3 ??C SpO2: 99% REVIEW OF SYSTEMS Constitutional: Positive for fatigue. Gastrointestinal: Positive for diarrhea, nausea and vomiting. Neurological: Positive for headaches. All other systems reviewed and are negative. OBJECTIVE PHYSICAL EXAMINATION General: Well appearing 56 y.o. who is in no apparent distress. Appears to be at ECOG performance status 1 Skin: Non-jaundice. No rashes. Eyes: No scleral icterus Lungs: Nonlabored, absent of cough. Extremities: No edema Neuro: Alert and oriented x 3. Calm interactive and appropriate. No focal neuro deficits. LABORATORY DATA Lab data reviewed. RADIOLOGICAL DATA Radiology data reviewed. ASSESSMENT / PLAN #1 Secondary Malignant Neoplasm Liver (HCC) #2 Malignant Neoplasm Of Pancreas (HCC) Prior to meeting with Mr. Campbell and his I had the opportunity to review his past medical records, laboratory tests and imaging studies. At the time of our consultation the formal report from the CT of the abdomen and pelvis was not available. I did review the imaging myself and it appears that there has been a response with 1 of the liver lesions looking smaller as well as the primary lesion. I will contact him regarding those results once the formal read is available. At this time Mr. Campbell states that he is not sure if he wants to continue on his present treatment regimen because of the side effects that he has been experiencing. I did patient financial counselor him that there are things that we can do to hopefully reduce the severity of the side effects he is experiencing. At this p oint I would like to give him another week off of treatment to recover and then have him return nextweek to have a further discussion about what he would like to do. In regards the headache I am encouraging him to try [id number]-augsrtz ibuprofen which she states is more effective for him than Tylenol.I did patient financial counselor him that he needs to be careful intake the ibuprofen with food products to hopefully prevent developing an ulcer. We did spend a significant time going over his cancer diagnosis [place] certain modalities are not appropriate in his situation. He specifically asked about surgery, radiation andablate of type procedures. We did discuss that at this point his treatment should be looked at as more of the systemic treatment and not a targeted treatment. At the conclusion of our visit he stated full understanding agreement the plan. He is very appreciative this information. He is in full agreement with the plan. Denies any further questions or concerns. Has our telephone number to contact us should they have any further questions or concerns. PATIENT EDUCATION Ready to learn, no apparent learning barriers were identified; learning preferences include listening. Explained diagnosis and treatment plan; patient expressed understanding of the content. ADMINISTRATIVE BILLING I personally spent 51 minutes in care of the patient today. Time includes both non face to face and face to face patient care. CUTTER documented in this encounter Plan of Treatment Upcoming Encounters Date Type Specialty Care Team Description 06/22/2022 Lab Laboratory Medicine Maria Del Rosario Gomez AP RN, C.N.P., M.S. [address] [place] [phone] (Wo rk) 06/22/2022 Infusion Oncology Maria Del Rosario Gomez APRN, Remy.N .P., M.S. [address] [place] [phone] (Wo rk) 06/29/2022 Lab Laboratory Medicine Maria Del Rosario Gomez AP RN, C.N.P., M.S. [address] [place] [phone] (Wo rk) 06/29/2022 Infusion Oncology Maria Del Rosario Gomez APRN, C.N .P., M.S. [address] [place] [phone] (Wo rk) Scheduled Referrals Name Type Priority Associated Order Schedule Diagnoses Oncology office Outpatient Referral Routine Secondary Malignan t Expected: visit (clinic) Neoplasm Liver 11/12/2021, General; GIH (HCC) Expires: Pancreatic Malignant Neoplasm 3 Of Pancreas (HCC) documented as of this encounter Results Carbohydrate Antigen 19-9 (CA 19-9) (11/11/2021 11:55 AM BRIM CUTTER) P athologist Signature Carbohydrate Ag 9 <35 U/mL 11/11/2021 [facility] 19-9, S 4:24 PM BRIM CUTTER Comment: ----ADDITIONAL INFORMATION---- The testing method is an immunoenzymatic assay manufactured by [employer] and performed on the [employer] DxI 800. ? Values obtained with different assay met hods or kits may be different and cannot be used inte rchangeably. ? Test results cannot be interpreted as ab solute evidence for the presence or absence of malignant disease. Specimen Anatomical Collection Method Collection Time Receive d Time (Source) Location / / Volume Laterality Blood (Blood, 11/11/2021 11:55 11/11/2021 3:26 Venous) AM BRIM CUTTER PM BRIM CUTTER Maria Del Rosario Gomez APRN, C.N.P., M.S. LAB BLOOD ADD-ON Performing Organization Address City/[facility] Phon e Number [facility] [address] [place], [place] [address] [facility] [place] [address] Laboratory Medicine and Pathology [address] [place] (ABNORMAL) ALT (Alanine Aminotransferase) (11/11/2021 11:55 AM BRIM CUTTER) [facility] Method Time Signature Alanine 93 (H) 7 - 55 11/11/2021 DTL Aminotransferase U/L 1:06 PM BRIM CUTTER (ALT), S Specimen Anatomical Collection Method Collection Time Receive d Time (Source) Location / / Volume Laterality Blood (Blood, 11/11/2021 11:55 11/11/2021 Venous) AM BRIM CUTTER 12:46 PM BRIM CUTTER Maria Del Rosario Gomez APRN, C.N.P., M.S. LAB BLOOD ADD-ON Performing Organization Address City/[facility] Phon e Number [facility] - 200 [place], [place] [address] [facility] [place] [address] Laboratories-[facility] 200 [facility] AST (Aspartate Aminotransferase) (11/11/2021 11:55 AM BRIM CUTTER) [facility] Method Time Signature Aspartate 30 8 - 48 11/11/2021 DTL Aminotransferase U/L 1:04 PM BRIM CUTTER (AST), S Specimen Anatomical Collection Method Collection Time Receive d Time (Source) Location / / Volume Laterality Blood (Blood, 11/11/2021 11:55 11/11/2021 Venous) AM BRIM CUTTER 12:45 PM BRIM CUTTER Maria Del Rosario L Hartgers TEAM LEAD, C.N.P., M.S. LAB BLOOD ADD-ON Performing Organization Address City/[facility] Phon e Number [facility] - [address] Bilirubin, Total (11/11/2021 11:55 AM BRIM CUTTER) athologist Signature Bilirubin, 0.4 <=1.2 mg/dL 11/11/2021 DTL Total, S 1:04 PM BRIM CUTTER Specimen Anatomical Collection Method Collection Time Receive d Time (Source) Location / / Volume Laterality Blood (Blood, 11/11/2021 11:55 11/11/2021 Venous) AM BRIM CUTTER 12:45 PM BRIM CUTTER Maria Del Rosario Gomez APRN, C.N.P., M.S. LAB BLOOD ADD-ON Performing Organization Address [facility] Phon e Number [facility] - [address] (ABNORMAL) Alkaline Phosphatase (11/11/2021 11:55 AM BRIM CUTTER) athologist Signature Alkaline 274 (H) 40 - 129 11/11/2021 DTL Phosphatase, S U/L 1:04 PM BRIM CUTTER Specimen Anatomical Collection Method Collection Time Receive d Time (Source) Location / / Volume Laterality Blood (Blood, 11/11/2021 11:55 11/11/2021 Venous) AM BRIM CUTTER 12:45 PM BRIM CUTTER Maria Del Rosario Gomez APRN, C.N.P., M.S. LAB BLOOD ADD-ON Performing Organization Address City/[facility] Phon e Number [facility] - [address] Magnesium (11/11/2021 11:55 AM BRIM CUTTER) athologist Signature Magnesium, S 2.1 1.7 - 2.3 11/11/2021 DTL mg/dL 1:04 PM BRIM CUTTER Specimen Anatomical Collection Method Collection Time Receive d Time (Source) Location / / Volume Laterality Blood (Blood, 11/11/2021 11:55 11/11/2021 Venous) AM BRIM CUTTER 12:45 PM BRIM CUTTER Maria Del Rosario Gomez APRN, C.N.P., M.S. LAB BLOOD ADD-ON Performing Organization Address City/[facility]/ZIP Code Phon e Number [facility] - [address] Phosphorus Inorganic (11/11/2021 11:55 AM BRIM CUTTER) P athologist Signature Phosphorus 4.3 2.5 - 4.5 11/11/2021 DTL (Inorganic), S mg/dL 1:04 PM BRIM CUTTER Specimen Anatomical Collection Method Collection Time Receive d Time (Source) Location / / Volume Laterality Blood (Blood, 11/11/2021 11:55 11/11/2021 Venous) AM BRIM CUTTER 12:45 PM BRIM CUTTER Maria Del Rosario Gomez APRN, C.N.P., M.S. LAB BLOOD ADD-ON Performing Organization Address City/[facility]/ZIP Code Phon e Number [facility] - [id number] [place] [address] Albumin (11/11/2021 11:55 AM BRIM CUTTER) athologist Signature Albumin, S 4.2 3.5 - 5.0 11/11/2021 DTL g/dL 1:04 PM BRIM CUTTER Specimen Anatomical Collection Method Collection Time Receive d Time (Source) Location / / Volume Laterality Blood (Blood, 11/11/2021 11:55 11/11/2021 Venous) AM BRIM CUTTER 12:45 PM BRIM CUTTER Maria Del Rosario Gomez APRN, C.N.P., M.S. LAB BLOOD ADD-ON Performing Organization Address City/State/ZIP Code Phon e Number [facility] - [address] Basic Metabolic Panel (11/11/2021 11:55 AM BRIM CUTTER) P athologist Signature Potassium, S 4.2 3.6 - 5.2 11/11/2021 DTL mmol/L 1:04 PM BRIM CUTTER Sodium, S 141 135 - 145 11/11/2021 DTL mmol/L 1:04 PM BRIM CUTTER Chloride, S 105 98 - 107 11/11/2021 DTL mmol/L 1:04 PM BRIM CUTTER Bicarbonate, S 27 22 - 29 11/11/2021 DTL mmol/L 1:04 PM BRIM CUTTER Anion Gap 9 7 - 15 11/11/2021 DTL 1:04 PM BRIM CUTTER BUN (Blood Urea 13 8 - 24 11/11/2021 DTL Nitrogen), S mg/dL 1:04 PM BRIM CUTTER Creatinine 0.91 0.74 - 11/11/2021 DTL 1.35 mg/dL 1:04 PM BRIM CUTTER eGFR-Non >90 >=60 11/11/2021 DTL Black/ mL/min/BSA 1:04 PM BRIM CUTTER Vincentian Comment: ----ADDITIONAL INFORMATION---- Estimated GFR calculated using the 2009 CKD_EPI creatinine equation. eGFR-Black/ >90 >=60 mL/min/BSA 2021 1:04 PM BRIM CUTTER DTL Comment: ----ADDITIONAL INFORMATION---- Estimated GFR calculated using the 2009 CKD_EPI creatinine equation. Calcium, Total, S 8.9 8.6 - 10.0 mg/dL 11/11/2021 1:04 PM BRIM CUTTER DTL Glucose, S 81 70 - 140 mg/dL 11/11/2021 1:04 PM BRIM CUTTER D TL Specimen Anatomical Collection Method Collection Time Receive d Time (Source) Location / / Volume Laterality Blood (Blood, 11/11/2021 11:55 11/11/2021 Venous) AM BRIM CUTTER 12:45 PM BRIM CUTTER Remy Willson APRN.N.P., M.S. LAB BLOOD ADD-ON Performing Organization Address City/State/ZIP Code Phon e Number [facility] - [address] [place], [place] [address] [facility] [place] [address] Laboratories-[facility] [address] (ABNORMAL) CBC with Differential, Blood (11/11/2021 11:55 AM BRIM CUTTER) [facility] gist Method Time Signature Hemoglobin 11.8 (L) 13.2 - 11/11/2021 DTL 16.6 g/dL 12:22 PM BRIM CUTTER Hematocrit 36.5 (L) 38.3 - 11/11/2021 DTL 48.6 % 12:22 PM BRIM CUTTER Erythrocytes 4.27 (L) 4.35 - 11/11/2021 DTL 5.65 12:22 PM BRIM CUTTER x10(12)/L MCV 85.5 78.2 - 11/11/2021 DTL 97.9 fL 12:22 PM BRIM CUTTER RBC Distrib Width 17.1 (H) 11.8 - 11/11/2021 DTL 14.5 % 12:22 PM BRIM CUTTER Platelet Count 224 135 - 317 11/11/2021 DTL x10(9)/L 12:22 PM BRIM CUTTER Leukocytes 4.9 3.4 - 9.6 11/11/2021 DTL x10(9)/L 12:22 PM BRIM CUTTER Neutrophils 3.49 1.56 - 11/11/2021 DTL 6.45 12:22 PM BRIM CUTTER x10(9)/L Lymphocytes 0.80 (L) 0.95 - 11/11/2021 DTL 3.07 12:22 PM BRIM CUTTER x10(9)/L Monocytes 0.43 0.26 - 11/11/2021 DTL 0.81 12:22 PM BRIM CUTTER x10(9)/L Eosinophils 0.12 0.03 - 11/11/2021 DTL 0.48 12:22 PM BRIM CUTTER x10(9)/L Basophils 0.03 0.01 - 11/11/2021 DTL 0.08 12:22 PM BRIM CUTTER x10(9)/L Specimen Anatomical Collection Method Collection Time Receive d Time (Source) Location / / Volume Laterality Blood (Blood, 11/11/2021 11:55 11/11/2021 Venous) AM BRIM CUTTER 12:14 PM BRIM CUTTER Maria Del Rosario Gomez APRN C.N.P., M.S. LAB BLOOD ADD-ON Performing Organization Address City/State/ZIP Code Phon e Number [facility] - [address] [place], [place] [address] [facility] [place] [address] Laboratories-[facility] [address] documented in this encounter Visit Diagnoses Diagnosis Secondary Malignant Neoplasm Liver (HCC) - Primary Malignant Neoplasm Of Pancreas (HCC) documented in this encounter Additional Health Concerns Assessment Noted Time PHQ-9 Depression Total Score: 2 10/01/2021 10:34 AM CS T documented as of this encounter Care Teams Business Manager Relationship Specialty Start Date End Date Elsewhere, Pcp PCP - General Family Medicine 08/12/20 documented as of this encounter
--- OUTSIDE RECORDS SUMMARY | 2022-06-18 16:06 | XMS_ITS | Encounter Summary ---
:1965 Author Organization [facility] Address [address] [place] [address] Care Team Providers Name Role Phone Elsewhere, Pcp Primary Care Provider Unavailable Reason for Visit Episode Based Medications (Routine) - Closed Specialty Diagnoses / Procedures Referred By Contact Refer red To Contact Diagnoses Malignant Neoplasm Of Pancreas (HCC) Secondary Malignant Neoplasm Liver (HCC) Deborah Murray M.B.B.S. Rst Onc Rogo Procedures OR ONDANSETRON HCL INJECTION OR DEXAMETHASONE SODIUM PHOS OR LEUCOVORIN CALCIUM INJECTION OR PALONOSETRON HCL OR INJ IRINOTECAN LIPOSOME 1 MG OR FLUOROURACIL INJECTION [address] [facility] [address] [place] [phone] Referral ID Status Reason Start Date Expiration Date Visits Requ ested Visits Authorized [id number] Closed 08/27/2021 08/27/2022 18 18 Encounter Details Date Type Department Care Team Description 10/15/2021 Office Visit Department of Oncology Teddy Zarco Malignant Neoplasm Liver (HCC) (Primary Dx); in [place], Vladislav Pereira M.D. Malignant Neoplasm Of Pancreas (HCC) [address] [place] [phone] Social History Tobacco Use Types Packs/Day Years [...] often do you attend oriental orthodox or evangelical services? 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 documented as of this encounter Last Filed Vital Signs Vital Sign Reading Time Taken Comments Blood Pressure 104/65 10/15/2021 9:47 AM HEAVY DUTY PRESS OPERATOR Pulse 88 10/15/2021 9:47 AM HEAVY DUTY PRESS OPERATOR Temperature 36.5 ??C (97.7 ??F) 10/15/2021 9:47 AM HEAVY DUTY PRESS OPERATOR Respiratory Rate 16 10/15/2021 9:47 AM HEAVY DUTY PRESS OPERATOR Oxygen Saturation 98% 10/15/2021 9:47 AM HEAVY DUTY PRESS OPERATOR Inhaled Oxygen Concentration - - Weight 77.4 kg (170 lb 10.2 oz) 10/15/2021 9:47 AM HEAVY DUTY PRESS OPERATOR Height 177 cm (5' 9.69) 10/15/2021 9:47 AM HEAVY DUTY PRESS OPERATOR Body Mass Index 24.71 10/15/2021 9:47 AM HEAVY DUTY PRESS OPERATOR documented in this encounter Progress Notes Vladislav Zarco M.D. - 10/15/2021 9:50 AM CST SUBJECTIVE PRIMARY CARE PHYSICIAN ELSEWHERE, PCP Patient Care Team: Adrian Mills M.D. as External Primary Care Physician (Family Medicine) LOCAL ONCOLOGIST No care team driver to display PRIMARY RENAULT ONCOLOGIST Deborah Murray M.B.B.S. Maria Del Rosario Gomez APRN, C.N.P., M.S. CHIEF COMPLAINT / REASON FOR VISIT Adam Cai Adrian is a 56 y.o. male who presents for evaluation of metastatic pancreatic cancer. He is on clinical trial with irinotecan, 5 FU and onvansertib. He has fatigue for the 1st 5 days, and has had some problems with gas with particularly bad odor. His stools are little loose but is not have diarrhea. He does have a mild acneiform rash for few days while he is on the onvansertib. HISTORY OF PRESENT ILLNESS Oncology History Oncology [...] (01/25/2021 - 03/02/2021) Site: Pancreas Technique: 3D LABORER Goal: Curative Planned Treatment Start Date: 01/25/2021 01/25/2021 - 03/01/2021 Chemotherapy Gemcitabine ( with Radiation ) Start Date: 01/25/2021 08/13/2021 Genetic Testing and Tumor Genotyping [facility] pancreas panel negative 08/27/2021 - Research Study Participant Research Study: A Study to Analyze Onvansertib Treatment in Patients with Metastatic Pancreatic Ductal Adenocarcinoma ([id number]) Treatment Protocol: [facility] CRDF-001 ( Onvansertib (Days 1-10) / Fluorouracil / Leucovorin / Nanoliposomal Irinotecan ) ONC General HPI The following portions of the patient's history were reviewed and updated as appropriate: allergies,current medications, medical history and problem list. No data recorded REVIEW OF SYSTEMS REVIEW OF SYSTEMS OBJECTIVE BP 104/65 (BP Location: Left arm, Patient Position: Sitting, Cuff Size: Regular) Pulse 88 Temp 36.5 ??C (Tympanic) Resp 16 Ht 177 cm Wt 77.4 kg SpO2 98% BMI 24.71 kg/m?? PHYSICAL EXAM ECOG performance score: 0 - asymptomatic Physical Exam LABORATORY DATA Lab data reviewed. RADIOLOGICAL DATA Radiology data reviewed. ASSESSMENT / PLAN #1 Secondary Malignant Neoplasm Liver (HCC) #2 Malignant Neoplasm Of Pancreas (HCC) The patient is doing pretty well on therapy. Will continue him for cycle 4. And then plan on restaging for cycle 5. Per protocol. I have seen the patient and concur with the assessment, evaluation, and recommendations of the care team provider stated in this note. PATIENT EDUCATION Ready to learn, no apparent learning barriers were identified; learning preferences include listening. Explained diagnosis and treatment plan; patient expressed understanding of the content. ADMINISTRATIVE BILLING I personally spent 25 minutes in care of the patient today. Time includes both non face to face and face to face patient care. Y DUTY PRESS OPERATOR Sabas Escobar M.D. - 10/15/2021 9:50 AM CST SUBJECTIVE PRIMARY CARE PHYSICIAN ELSEWHERE, PCP PRIMARY RENAULT ONCOLOGIST Deborah Murray M.B.B.Manuel. Maria Del Rosario Gomez, GUERO, C.N.P., M.S. CHIEF COMPLAINT / REASON FOR VISIT Adam Campbell is a 56 y.o. male who presents for evaluation of chemotherapy toxicity prior to initiation of cycle 4. HISTORY OF PRESENT ILLNESS Patient is a 56-year-old male with a past medical history significant for pancreatic adenocarcinoma diagnosed 07/2020 complicated by obstruction requiring stent placement, complicated by peripancreaticabscess and pancreatitis, cholangitis requiring stent placement to common bile duct in 09/2020, status post treatment with gemcitabine and Abraxane/gemcitabine and radiation, on study with 5 fluorouracil, Leucovorin, Irinotecan, and onvansertib presenting for evaluation prior to initiation of cycle 4 of the aforementioned therapy. Patient's pre minute complaint is malodorous flatulence accompanied by left lower quadrant gas pain.Patient states that the aforementioned symptoms are worsening. Pain described as 9/10 in severity. Furthermore, patient endorses soft bowel movements which are cream colored. Patient states that the afo rementioned occurs regardless of diet. Patient states that he takes 15439 units lipase per meal. Patient states that he is otherwise tolerating therapy well. He states that he experiences approximately 5 days of malaise which is followed by 9 days where he is doing very well without complaints subsequent chemotherapy. Patient denies weight loss, fever, chills, signs of systemic illness, and all ca rdiovascular/respiratory//musculoskeletal symptoms. Neuropathy stable. Patient endorses a rash which occurs after therapy located on upper back. Patient eagerly awaits restaging scans and expressed hope regarding for response to therapy. Oncology History Malignant Neoplasm Of Pancreas (HCC) [...] (01/25/2021 - 03/02/2021) Site: Pancreas Technique: 3D LABORER Goal: Curative Planned Treatment Start Date: 01/25/2021 01/25/2021 - 03/01/2021 Chemotherapy Gemcitabine ( with Radiation ) Start Date: 01/25/2021 08/13/2021 Genetic Testing and Tumor Genotyping [facility] pancreas panel negative 08/27/2021 - Research Study Participant Research Study: A Study to Analyze Onvansertib Treatment in Patients with Metastatic Pancreatic Ductal Adenocarcinoma ([id number]) Treatment Protocol: [facility] CRDF-001 ( Onvansertib (Days 1-10) / Fluorouracil / Leucovorin / Nanoliposomal Irinotecan ) REVIEW OF SYSTEMS Constitutional: Negative for fatigue, fever, night sweats and weight loss of more than 10 pounds. Skin: Positive for skin rash. Eyes: Negative for double vision, visual problems and sudden loss of vision. ENT: Negative for sinus congestion. Respiratory: Negative for dry cough, dyspnea and wheezing. Cardiovascular: Negative for chest pain, pressure or tightness, rapid or fluttering heart beat and shortness of breath when lying flat. Gastrointestinal: Positive for abdominal (belly) pain or cramping and diarrhea. Negative for blood in stool, constipation, heartburn, nausea, vomiting and difficulty swallowing. Genitourinary: Negative for difficulty urinating and hematuria. Neurological: Negative for seizures, loss of consciousness, light-headedness, loss of balance or tendency to fall easily, headaches and blackouts. OBJECTIVE BP 104/65 (BP Location: Left arm, Patient Position: Sitting, Cuff Size: Regular) Pulse 88 Temp 36.5 ??C (Tympanic) Resp 16 Ht 177 cm Wt 77.4 kg SpO2 98% BMI 24.71 kg/m?? PHYSICAL EXAM Constitutional General: He is not in acute distress. Appearance: Normal appearance. He is normal weight. He is not ill-appearing or toxic-appearing. Eyes General: No scleral icterus. Cardiovascular Rate and Rhythm: Normal rate and regular rhythm. Pulses: Normal pulses. Heart sounds: No murmur heard. No friction rub. No gallop. Pulmonary Effort: Pulmonary effort is normal. No respiratory distress. Breath sounds: Normal breath sounds. No stridor. No wheezing, rhonchi or rales. Abdominal General: Abdomen is flat. Bowel sounds are normal. There is no distension. Palpations: Abdomen is soft. Tenderness: There is no abdominal tenderness. Musculoskeletal Right lower leg: No edema. Left lower leg: No edema. Skin General: Skin is warm and dry. Coloration: Skin is not jaundiced. Findings: Lesion (Scattered erythematous lesions present on the upper portion of back. Not consistent with acne.) present. Neurological Mental Status: He is alert. Psychiatric Mood and Affect: Mood normal. LABORATORY DATA Lab data reviewed. RADIOLOGICAL DATA Radiology data reviewed. ASSESSMENT / PLAN #1 Secondary Malignant Neoplasm Liver (HCC) #2 Malignant Neoplasm Of Pancreas (HCC) Patient states that he is tolerating therapy well aside from flatulence and diarrhea. Patient reports taking insufficient dose of Creon; he takes 28931 units of lipase per medial regardless of content of meal. Patient reports diet ranges greatly; however, frequently involved high fat content. Patient has been advised to trial increased dose of Creon with 1-5 depending on fat content of medial. Patient has been informed that this will be a process that requires adjustment over time. Per hospitality coordinator, restaging scans will occur in 2 weeks time. This is the communicated to patient. Considering limited toxicity, it is appropriate to proceed with treatment at this time. Patient endorsed an understanding of and agreement with the aforementioned plan. PATIENT EDUCATION Ready to learn, no apparent learning barriers were identified; learning preferences include listening. Explained diagnosis and treatment plan; patient expressed understanding of the content. ADMINISTRATIVE BILLING I personally spent over half of a total 40 minutes face to face with the patient in counseling and discussion and/or coordination of care [place] [id number] PGY 1 Y DUTY PRESS OPERATOR documented in this encounter Plan of Treatment Upcoming Encounters Date Type Specialty Care Team Description 06/22/2022 Lab Laboratory Medicine Maria Del Rosario Gomez AP RN, C.N.P., M.S. [address] [place] [phone] (Mj godoy) 06/22/2022 Infusion Oncology Maria Del Rosario Gomez APRN, C.N .P., M.S. [address] [place] [phone] ([place] godoy) 06/29/2022 Lab Laboratory Medicine Maria Del Rosario Gomez AP RN, C.N.P., M.S. [address] [place] [phone] ([place]j godoy) 06/29/2022 Infusion Oncology Maria Del Rosario Gomez APRN, C.N .P., M.S. [address] [place], [place] [phone] ([place]j godoy) documented as of this encounter Visit Diagnoses Diagnosis Secondary Malignant Neoplasm Liver (HCC) - Primary Malignant Neoplasm Of Pancreas (HCC) documented in this encounter Additional Health Concerns Assessment Noted Time PHQ-9 Depression Total Score: 2 10/01/2021 10:34 AM CS T documented as of this encounter Care Teams Modeling Agent Relationship Specialty Start Date End Date Elsewhere, Pcp PCP - General Family Medicine 08/12/20 documented as of this encounter
--- OUTSIDE RECORDS SUMMARY | 2022-06-18 16:06 | XMS_ITS | Encounter Summary ---
:1965 Author Organization [facility] Address [address] [place] [id number] Care Team Providers Name Role Phone Elsewhere, Pcp Primary Care Provider Unavailable Reason for Visit Reason Comments Med Refill Encounter Details Date Type Department Care Team Description 10/17/2021 Refill Department of Palliative Care Terri Wood APRN, Med Refill in [facility] C.N.P., D.N.P. [address] [facility] [address] [place] [address] [place] [address] [phone] (Wo rk) Social History Tobacco Use Types [...] How often do you attend mandaeism or scientology services? 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 [address] [place] [phone] ([place] god[place]) 06/22/2022 Infusion Oncology Maria Del Rosario Gomez APRN, C.N .P., M.S. [address] [place] [phone] ([place] godoy) 06/29/2022 Lab Laboratory Medicine Maria Del Rosario Gomez AP RN, C.N.P., M.S. [address] [place] [phone] ([place]j godoy) 06/29/2022 Infusion Oncology Maria Del Rosario Gomez APRN, C.N .P., M.S. [address] [place] [phone] (Mj godoy) documented as of this encounter Visit Diagnoses Not on filedocumented in this encounter Additional Health Concerns Infection Onset Date Last Indicated Resolved Time COVID19 Pending 10/24/2021 10/24/2021 10/24/2021 8:21 AM COMMUNICATIONS REPRESENTATIVE Assessment Noted Time PHQ-9 Depression Total Score: 2 10/01/2021 10:34 AM CS T documented as of this encounter Care Teams Line And Frame Poler Relationship Specialty Start Date End Date Elsewhere, Pcp PCP - General Family Medicine 08/12/20 documented as of this encounter
--- OUTSIDE RECORDS SUMMARY | 2022-06-18 16:06 | XMS_ITS | Encounter Summary ---
:1965 Author Organization [facility] Address [address] [place] [address] Care Team Providers Name Role Phone Elsewhere, Pcp Primary Care Provider Unavailable Reason for Visit Reason Comments Abdominal Pain Auth/Cert Specialty Diagnoses / Procedures Referred By Contact Refer red To Contact Diagnoses Abdominal Pain Abd Pain Procedures OBS Referral ID Status Reason Start Date Expiration Date Visits Requ ested Visits Authorized [id number] 1 1 Encounter Details Date Type Department Care Team Description 10/23/2021 - Emergency [facility] Kurtis Tesfaye M.D., M.B.A. [address] [place] [phone] Abdominal Pain 10/24/2021 [facility], Tawanda Camara M.D. [address] [place] [phone] (Primary Dx) Elma, Vicky Rider M.D. [address] [place] [phone] Building, Fourth Floor [address] [place] [phone] Social History Tobacco Use Types Packs/Day Years [...] er 01/15/2021 How often do you attend jewish or hinduism services? Never 01/15/2021 Do you belong to any clubs or organizations such as jewish N o 01/15/2021 groups, unions, fraternal or [...] at Date Recorded Male 08/18/2021 2:55 PM [employer] FIELD AGENT documented as of this encounter Last Filed Vital Signs Vital Sign Reading Time Taken Comments Blood Pressure 125/78 10/24/2021 2:33 PM [employer] FIELD AGENT Pulse 80 10/24/2021 2:33 PM [employer] FIELD AGENT Temperature 36.5 ??C (97.7 ??F) 10/24/2021 2:33 PM FBI FIELD AGENT Respiratory Rate 15 10/24/2021 2:33 PM FBI FIELD AGENT Oxygen Saturation 100% 10/24/2021 2:33 PM FBI FIELD AGENT Inhaled Oxygen Concentration - - Weight 77.5 kg (170 lb 13.7 oz) 10/24/2021 2:27 AM FBI FIELD AGENT Height 173.7 cm (5' 8.4) 10/24/2021 2:27 AM FBI FIELD AGENT Body Mass Index 25.68 10/24/2021 2:27 AM [employer] FIELD AGENT documented in this encounter Discharge Summaries Jacquie Ledezma, GUERO, C.N.P., M.S.N. - 10/24/2021 2:31 PM CST DISCHARGE SUMMARY BRIEF OVERVIEW Hospital: [facility] Discharge Provider: Vicky Moreno M.D. Primary Team: [facility] Primary Care Providers: Elsewhere, Pcp (General) No address on file Primary Care Provider Phone Number: None Primary Care Provider Fax Number: None Admission Date: 10/23/2021 Discharge Date: 10/24/2020 PRINCIPAL DIAGNOSIS Abdominal Pain SECONDARY DIAGNOSES Principal Problem: Abdominal Pain Active Problems: Malignant Neoplasm Of Pancreas (HCC) Pain Cancer Associated Constipation Secondary Malignant Neoplasm Liver (HCC) Neuropathy Peripheral Resolved Problems: * No resolved hospital problems. * DISCHARGE DISPOSITION Home or Self Care [1] ACTIVE ISSUES REQUIRING FOLLOW UP - Continue to advance diet from soft, bland foods to solids slowly and as tolerated. - Take Protonix 40 mg twice daily for one week then return to once daily. - Please go to your local Emergency Room for a fever of 38.0 C (100.4 F). - Please call the [place] [facility] and ask for the Oncology Kerfer Machine Operator provider if you haveany questions or concerns. OUTPATIENT FOLLOW UP Scheduled Appointments 10/28/2021 1:00 PM ERASTO CHEF HEAD PORT DRAW ROEI Infusion Therapy 10/28/2021 2:[address] [facility]O ABD LOS 814 Radiology 10/29/2021 9:30 AM Emma Mora R.N. Oncology 10/29/2021 9:40 AM Deborah Murray M.B.B.S. Oncology 10/29/2021 10:30 AM ONC CHAIR CHEMO 27 [facility] Oncology 11/12/2021 9:00 AM ONC CHAIR CHEMO 39 ROGO; LAB BLOOD ROGO 10 E Laboratory Medicine 11/12/2021 11:00 AM Emma Mora R.N. Oncology 11/12/2021 11:10 AM Vladislav Zarco M.D. Oncology 11/12/2021 1:00 PM PAL PROVIDER 01 ROGO Palliative Medicine 11/12/2021 2:15 PM ONC CHAIR CHEMO 38 [facility]GO Oncology For appointment details refer to your Patient Appointment Guide. TEST RESULTS PENDING AT DISCHARGE Pending Labs None DETAILS OF HOSPITAL STAY REASON FOR ADMISSION Abdominal Pain HOSPITAL COURSE Mr. Adam Campbell is a 56 y.o. male with past history notable for metastatic pancreatic adenocarcinoma with liver metastasis complicated by several episodes of acute cholangitis (last 03/2021), biliary strictures s/p stenting and exchange last (03/2021), and pancreatitis following ERCP, currently on a clinical trial with irinotecan, 5 FU and onvansertib since Aug 2021 (last chemotherapy on 10/15/21) who presents to the ED a 3 day history of abdominal pain and nausea without emesis. He does take Protonixdaily in the morning, but states that he has not taken this for last few days and has noticed that he has felt more acidic. He also recently doubled the number of Creon tablets (per MD instructions) hetakes as he reported having really foul smelling gas and this has helped. He denied having any fever, chills, shortness of breath, chest pain, vomiting, any new skin rashes or sores. He was constipated x 2 days and reports this is now improved. He reports that his abdominal pain is intermittent, periumbilical, and radiates to the left upper quadrant. ED workup was notable for stable hemoglobin, leukopenia and mild thrombocytopenia (likely chemotherapy related, he had these findings in the past). Normal transaminases and bilirubin and CT showed stable positioning of the stents, stable pancreatic head mass, progression of atrophy the pancreatic bodyand tail with some mild peripancreatic inflammatory changes. Patient was given 1L of IV hydration and IV dilaudid for pain. Given his ongoing pain and nausea, patient was admitted for observation and symptom management. Overnight, patient was placed on clear liquid diet, given an additional 2L of IV hydration and pain medications. Today, symptoms had improved. Vital signs were stable. Afebrile. He was restarted on hisPPI and advised to take twice daily for 1 week for possible gastritis. Continued to pass gas and stool. Given a dose of imodium for loose stools this morning. Denied nausea/vomiting. Diet was advanced throughout the day with no significant increase in symptoms. He was discharged today with repeat restaging imaging on 10/28 and follow up with medical oncology on Monday, 10/29. PHYSICAL EXAM General: Alert, oriented, no apparent distress Eyes: Conjunctiva is pink and sclera is white. PERRLA. HENT: Moist oral mucosa without mucositis Skin: No rashes or ulcers Heart: Regular rate and rhythm. Extremities: No significant edema. Lungs: Clear to auscultation bilaterally Abdomen: Soft, Mild generalized tenderness, baseline per patient. No guarding. Hypoactive bowel sounds. Mood: Pleasant, appropriate communication and interaction with staff. CONSULTS ORDERED DURING THIS ADMISSION None CONDITION AT DISCHARGE stable Discharge instructions were provided to the patient and caregiver(s). FIELD AGENT documented in this encounter Medications at Time of Discharge Medication Sig Dispensed Refills Start Date End Date medical cannabis Take by mouth. THC component: [...] times a 8.6-50 mg per tablet day. acetaminophen Take 2 tablets (1,000 0 01/01/2021 10/25/2021 (TYLENOL) 500 mg mg total) by mouth 3 tablet (three) times a day. gabapentin TAKE 2 CAPSULES(600 60 capsule 1 10/18/202112/20 (NEURONTIN) 300 mg MG) BY MOUTH AT capsule BEDTIME HYDROmorphone Take 0.5-1 tablets 60 tablet 0 10/22/2021 (DILAUDID) 4 mg (2-4 mg total) by tabletIndications: mouth every 6 (six) Chronic Pain/Nonacute hours as needed for Pain pain Indication: Chronic Pain/Nonacute Pain. lidocaine (LMX) 4 % Apply 1 application 30 g 0 021 10/25/2021 cream topically 3 (three) times a day as needed for pain. May try over the counter lidocaine cream for back pain egantl-[id number]-[id number] Take 2 capsules by 240 capsule 3 08/0412/09/2021 se (Creon) mouth as directed. 2 24,000-76,000-120,000 capsules with meals Unit per DR capsule and 1-2 capsules with snacks. loperamide (IMODIUM Take 1 capsule (2 mg 0 202110/25/2021 A-D) 2 mg capsule total) by mouth 4 (four) times a day as needed for diarrhea. ondansetron (ZOFRAN) Take 1 tablet (8 mg 30 tablet 3 202001/06/2022 8 mg total) by mouth every tabletIndications: 8 (eight) hours as Malignant Neoplasm Of needed for nausea or Pancreas (HCC) vomiting. pantoprazole Take 1 tablet (40 mg 90 tablet 0 10/24/2021 (PROTONIX) 40 mg EC total) by mouth every tablet morning before breakfast. Take twice daily before breakfast and before dinner 10/24-10/31, then continue once daily before breakfast. Research IRB Take 1 capsule (20 mg 10 capsule 0 10/15/2021 0 10/25/2021-339718 onvansertib total) by mouth daily (PCM-075) 20 mg for 10 doses. Take on capsuleIndications: Days 1 through 10 of Secondary Malignant each 14 day course. Neoplasm Liver (HCC), Drug should be taken Malignant Neoplasm Of with a large glass of Pancreas (HCC) plain water without ice. Refrain from eating for 30 minutes following administration of Onvansertib. A light breakfast can be served between 30 minutes and 3 hours after drug intake. Research IRB Take 1 capsule (5 mg 10 capsule 0 10/15/2021-587467 onvansertib total) by mouth daily (PCM-075) 5 mg for 10 doses. Take on capsuleIndications: Days 1 through 10 of Secondary Malignant each 14 day course. Neoplasm Liver (HCC), Drug should be taken Malignant Neoplasm Of with a large glass of Pancreas (HCC) plain water without ice. Refrain from eating for 30 minutes following administration of Onvansertib. A light breakfast can be served between 30 minutes and 3 hours after drug intake. traZODone (DESYREL) Take 1-2 tablets 30 tablet 0 02/19/2021 01/06/2022 50 mg tablet (50-100 mg total) by mouth at bedtime. Take 50 mg daily at bedtime for at least 7 days. If ineffective, may trial increase to 100 mg daily at bedtime. heparin 100 unit/mL 5 mL (500 Units total) 60 mL 3 09/1210/29/2021 syringeIndications: by intra-catheter Secondary Malignant route once as needed Neoplasm Liver (HCC), for line care for up Malignant Neoplasm Of to 1 dose. Flush IV Pancreas (HCC) line AFTER 0.9% Sodium Chloride flush heparin 100 unit/mL 5 mL (500 Units total) 60 mL 3 12/202110/29/2021 syringeIndications: by intra-catheter Secondary Malignant route once as needed Neoplasm Liver (HCC), for line care for up Malignant Neoplasm Of to 1 dose. Flush IV Pancreas (HCC) line AFTER 0.9% Sodium Chloride flush documented as of this encounter Progress Notes Jessenia Thakkar M.D. - 10/24/2021 1:06 PM CST I saw Mr. Campbell with the Oncology Team during walking rounds. Mr. Campbell is a 56-year-old patient with history of metastatic pancreatic adenocarcinoma (liver metastases) currently on treatment with 5 U/LV, liposomal irinotecan and onvarsetib (days 1-10). He did take the experimental drug yesterday and then presented to the emergency room with worsening abdominal pain and nausea and concern for biliarystent obstruction.Mr. Campbell has not take nonvarsetib today. A CT scan of the pelvis was reassuring revealing no biliary stent obstruction, however there was some mild pancreatic inflammation and atrophy with normal lipase. He received clear liquid diet overnight along with fluids. Creon was re- initiated. He was able to tolerate advance in diet this morning. #1 Malignant Neoplasm Of Pancreas (HCC) #2 Pain Cancer Associated #3 Constipation #4 Secondary Malignant Neoplasm Liver (HCC) #5 Abdominal Pain #6 Neuropathy Peripheral Mr. Campbell is a patient with metastatic pancreatic adenocarcinoma on clinical trial with 5 U/LV, liposomal irinotecan and onvarsetib on cycle 4 day 10 today. I think that most likely his abdominal pain and nausea are related to the experimental treatment. We will hold the day 10 of onvarsetib today. Symptoms have improved and CT scan of the abdomen and pelvis has been reassuring. Mr. Campbell will be discharged today and follow-up with outpatient team. Vicki Rogers Pharm.D., R.Ph. - 10/24/2021 9:38 AM CST Pharmacist Progress Note SUBJECTIVE Reason for admission: abdominal pain, nausea, decreased appetite PMH: metastatic pancreatic adenocarcinoma, OBJECTIVE Home medications: resumed appropriately ?? Changed: protonix to bid Prophylaxis: enoxaparin #pancreatic adenocarcinoma (dx Jul 2020) ?? Met to liver ?? S/p gem/abraxane, radiation, single agent gemcitabine with rads ?? Most recently on study with onvansertib, 5FU, liposomal irinotecan, C4D1 = 2/4 ASSESSMENT / PLAN 1. Abdominal pain: ?? Unclear etiology. Hydromorphone PRN for pain control ?? Protonix increased to twice daily. Senna-S 3 tabs BID. 2. Onc: ?? C5 of study regimen due 10/29. Anticipate deferral to outpatient if still admitted at that time. 3. Home meds: ?? Continue gabapentin, Creon Changes to medications anticipated at discharge: TBD Vicki Hale Pharm.D., R.Ph. FIELD AGENT documented in this encounter H&P Notes Trell Murillo M.D. - 10/23/2021 11:28 PM CST [facility] Oncology Hospital Admission Note SUBJECTIVE CHIEF COMPLAINT Abdominal pain, nausea, decreased appetite over the last 3 days HISTORY OF PRESENT ILLNESS Mr. Adam Campbell is a 56 y.o. male with past history notable for metastatic pancreatic adenocarcinoma with liver metastasis followed by Dr. Zarco and on clinical trial with irinotecan, 5 FUand onvansertib since Aug 2021, presents to ED with above chief complaint and concern for possible biliary stent obstruction. Last chemo was 10/15/21. Patient reports usually by Monday after chemo, hefeels much improved and that was not case this last time. He states that has been a challenge to eathis usual to eggs in the morning due to nausea. He has not had any emesis, reports holding it back. He does take Protonix daily in the morning and states that he missed that the last few days and has noticed that he has felt more acidic. He also recently doubled the number of Creon tablets (per MD instructions) he takes as he reported having really foul smelling gas and this has helped. He denied having any fever, chills, shortness of breath, chest pain, vomiting, any new skin rashes or sores. He was constipated x 2 days and reports this is now improved, continues to have decreased appetite, some headache, and ongoing nausea. He reports that his abdominal pain is intermittent and midbelly, around his belly button. He also reports that this is the pain that he had when his stents were occluded in the past and hence that has been his primary concern. Patient was evaluated in the emergency department 10/23/21. Workup was notable for stable hemoglobin,leukopenia and mild thrombocytopenia (he had these findings in the past). Normal transaminases and bilirubin and CT showed stable positioning of the stents, pancreatic head mass, progression of atrophythe pancreatic body and tail with some mild peripancreatic inflammatory changes. Given his ongoing pain and need for Dilaudid, decreased appetite patient was admitted for further evaluation and management. Patient has a history of several episodes of acute cholangitis (last 03/2021), biliary strictures s/pstenting and exchange last (03/2021), and pancreatitis following ERCP as well as sensory neuropathy affecting predominantly his lower extremities. I have reviewed and updated the following: Past Medical History, Family History, Social History, andAllergies. Oncology history as recorded in [facility] Oncology History Malignant Neoplasm Of Pancreas (HCC) [...] (01/25/2021 - 03/02/2021) Site: Pancreas Technique: 3D GRAVE CLEANER Goal: Curative Planned Treatment Start Date: 01/25/2021 01/25/2021 - 03/01/2021 Chemotherapy Gemcitabine ( with Radiation ) Start Date: 01/25/2021 08/13/2021 Genetic Testing and Tumor Genotyping [facility] pancreas panel negative 08/27/2021 - Research Study Participant Research Study: A Study to Analyze Onvansertib Treatment in Patients with Metastatic Pancreatic Ductal Adenocarcinoma ([id number]) Treatment Protocol: [facility] CRDF-001 ( Onvansertib (Days 1-10) / Fluorouracil / Leucovorin / Nanoliposomal Irinotecan ) Active Home Medications Medication Sig Taking acetaminophen (TYLENOL) 500 mg tablet Take 2 tablets (1,000 mg total) by mouth 3 (three) times a day. Yes gabapentin (NEURONTIN) 300 mg capsule TAKE 2 CAPSULES(600 MG) BY MOUTH AT BEDTIME Yes HYDROmorphone (DILAUDID) 4 mg tablet Take 0.5-1 tablets (2-4 mg total) by mouth every 6 (six) hours as needed for pain Indication: Chronic Pain/Nonacute Pain. Yes lidocaine (LMX) 4 % cream Apply 1 application topically 3 (three) times a day as needed for pain. May try over the counter lidocaine cream for back pain Yes hqeqra-yrubdfou-iopkctk (Creon) 24,000-76,000-120,[address] capsule Take 2 capsules by mouth as directed. 2 capsules with meals and 1-2 capsules with snacks. Yes medical cannabis capsule Take by mouth. THC component: CBD component: Yes ondansetron (ZOFRAN) 8 mg tablet Take 1 tablet (8 mg total) by mouth every 8 (eight) hours as neededfor nausea or vomiting. Yes polyethylene glycol (MIRALAX) 17 gram powder packet Take 1 packet (17 g total) by mouth 2 (two) times a day. Dissolve each 17 g dose in 240 mLs (8 ounces) of beverage. Yes Research IRB [id number] onvansertib (PCM-075) 20 mg capsule Take 1 capsule (20 mg total) by mouth daily for 10 doses. Take on Days 1 through 10 of each 14 day course. Drug should be taken with a large glass of plain water without ice. Refrain from eating for 30 minutes following administration of Onvansertib. A light breakfast can be served between 30 minutes and 3 hours after drug intake. Yes Research IRB [id number] onvansertib (PCM-075) 5 mg capsule Take 1 capsule (5 mg total) by mouth dailyfor 10 doses. Take on Days 1 through 10 of each 14 day course. Drug should be taken with a large glass of plain water without ice. Refrain from eating for 30 minutes following administration of Onvansertib. A light breakfast can be served between 30 minutes and 3 hours after drug intake. Yes sennosides-docusate sodium (SENOKOT-S) 8.6-50 mg per tablet Take 3 tablets by mouth 2 (two) times a day. Yes traZODone (DESYREL) 50 mg tablet Take 1-2 tablets (50-100 mg total) by mouth at bedtime. Take 50 mg daily at bedtime for at least 7 days. If ineffective, may trial increase to 100 mg daily at bedtime. Patient taking differently: Take 50 mg by mouth at bedtime. Take 50 mg daily at bedtime for at least7 days. If ineffective, may trial increase to 100 mg daily at bedtime. Yes heparin 100 unit/mL syringe 5 mL (500 Units total) by intra-catheter route once as needed for line care for up to 1 dose. Flush IV line AFTER 0.9% Sodium Chloride flush heparin 100 unit/mL syringe 5 mL (500 Units total) by intra-catheter route once as needed for line care for up to 1 dose. Flush IV line AFTER 0.9% Sodium Chloride flush Medication Review: reconciled REVIEW OF SYSTEMS Pertinent items are noted in HPI; all other review of systems was negative. OBJECTIVE VITAL SIGNS Temperature: [36.6 ??C-36.8 ??C] 36.6 ??C Resp Rate: [16] 16 Blood Pressure: (85-121)/(51-85) 107/66 SpO2: [94 %-100 %] 97 % Height: [173.7 cm] 173.7 cm Weight: [77.5 kg-79 kg] 77.5 kg BSA (Calculated - sq m): [1.93 sq meters] 1.93 sq meters BMI (Calculated): [25.7 kg/m??] 25.7 kg/m?? Pulse Rate: [76-108] 108 PHYSICAL EXAM General - Patient is alert, cooperative and in no acute distress. HEENT - Normocephalic and atraumatic. Pupils equally round and reactive to light. Sclerae are anicteric. No conjunctivitis or subconjunctival lesions. External auditory canals and nasal mucosa is clear. Oropharynx is clear, normal lips teeth and gums with moist mucous membranes. No posterior oropharyngeal erythema or exudates or thrush. Neck - Soft and supple, no carotid bruits. No thyromegaly. Heart - Regular rate and rhythm without murmurs, rubs or gallops. Lungs - Normal respiratory effort. Lungs are clear to auscultation bilaterally without wheezes rubs or rhonchi. Abdomen - Soft, mildly tender in the left upper and lower quadrants as well as just above his umbilicus however not epigastric and non-distended. Bowel sounds are normoactive. No guarding or rebound tenderness. No Hepatosplenomegaly, palpable masses or hernias. No suprapubic tenderness. Ext - Warm, no clubbing or cyanosis, no edema. Normal range of motion. Skin - [place] color, No rashes or lesions. Warm and dry. No decubitus ulcers. Capillary refill - Less than 3 sec Neuro - Alert and oriented to person, place and time. 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 Strength, sensation, and tone are grossly intact. No focal deficits. Lymph - No adenopathy of the neck, axilla or groin DIAGNOSTICS I have reviewed the labs and xray from last 6 months ASSESSMENT / PLAN Mr. Adam Campbell is a 56 y.o. male with past history notable for metastatic pancreatic adenocarcinoma with liver metastasis on clinical trial with irinotecan, 5 FU and onvansertib since Aug 2021, last chemo was 10/15/21, who presents to ED with abdominal pain, nausea, and decreased appetite for 3days. Patient was concerned for possible biliary stent obstruction, this was not suspected based on CT findings are labs, however, there was some persistent mild peripancreatic inflammatory changes on CT and he is admitted with concern for mild pancreatitis. It is noted that his LFTs and lipase are normal. #1 Abdominal Pain #2 Malignant Neoplasm Of Pancreas (HCC) #3 Pain Cancer Associated #4 Constipation #5 Secondary Malignant Neoplasm Liver (HCC) #6 Neuropathy Peripheral Etiology of his abdominal pain is unclear, it is possible that he could have some early mild pancreatitis just based on imaging, gastritis or even discomfort related to the previous gastric stents could be possible. I do not see any evidence for cholangitis and with normal LFTs on likely related to stent obstruction. ?? Will give clear liquids overnight ?? Hydration, additional liter of IVF, antiemetics ?? Stool softeners for constipation - continue senokot-s 3 tabs BID ?? Pain control with hydromorphone oral 2 mg q.4 hours p.r.n. with IV for severe pain ?? Continue gabapentin for neuropathy. ?? Resume Protonix 40 mg, will increase to b.i.d. ?? Will place him back on his usual dose of Creon ?? F/U labs in the AM ?? Consider GI consultation if symptoms persist Goals of care: Full code Blood consent from completed: No Diet: Adult Diet Clear Liquid Tubes/lines: Lines, Drains, and Airways Timeline Central venous catheter Implanted Port Single Lumen 11/05/20 Permanent (tunneled, implanted) Right Chest Power injectable 352d 14h Wound Puncture 08/23/21 Abdomen Right Multiple puncture sites from liver biopsy 61d 10h VTE prophylaxis: enoxaparin Baseline Mobility: BMAT Level 4 (Able to stand and walk) Decision-making capacity: intact Code status: Full Code Disposition: Home Counseling was provided [id number] at bedside regarding the plan of care as stated above. I personally spent over half of a total 70 minutes in counseling and coordination of care as documented above. FIELD AGENT documented in this encounter Nursing Notes Jacqui Chen RJohn. - 10/24/2021 2:42 PM CST Discharge order received. VS taken and stable. AVS printed and education given. IVAD removed. Transportation to be provided by patient family member. FIELD AGENT documented in this encounter ED Notes Kurtis Tesfaye M.D. - 10/23/2021 7:44 PM CST SUBJECTIVE CHIEF COMPLAINT/REASON FOR VISIT Abdominal Pain HISTORY OF PRESENT ILLNESS Adam Campbell is a 56-year-old male with a history of metastatic pancreatic cancer with metastases to the liver s/p chemotherapy and radiation who presents to the Emergency Department for the evaluation of abdominal pain. Several days ago, the patient developed abdominal pain which has since been worsening. He is concerned for biliary stent obstruction as he has a history of occlusion and repeated stent replacement. In addition, he endorses headache, nausea, constipation, and one episode of chest pain which quickly resolved. His last bowel movement was two days ago after using an enema. He denies fever, chills, bloodystools, vomiting, shortness of breath, or leg swelling. Of note, the patient is in between chemotherapy cycles. REVIEW OF SYSTEMS Constitutional: Negative for chills and fever. Respiratory: Negative for shortness of breath. Cardiovascular: Negative for chest pain and leg swelling. Gastrointestinal: Positive for abdominal pain, constipation and nausea. Negative for blood in stool and vomiting. Neurological: Positive for headaches. Please refer to resident???s documentation for additional review of systems. OBJECTIVE Initial Vitals Temperature Pulse Rate Heart Rate Resp Rate Blood Pressure SpO2 10/23/21195310/23/211953 -- 10/23/21195310/23/21195310/23/211953 36.8 ??C 92 16 119/80 96 % Pain Score 10/23/212020 5 - Moderate pain PHYSICAL EXAMINATION Constitutional: Nursing note and vitals reviewed. Non-toxic appearance. No distress. HENT: Head: Atraumatic. Mouth/Throat: Mucous membranes are moist. Eyes: Conjunctivae and lids are normal. Pupils are equal, round, and reactive to light. Neck: Neck supple. Cardiovascular: Normal rate, regular rhythm, S1 normal and S2 normal. Pulses are palpable. Edema: noedema noted Pulmonary/Chest: Effort normal and breath sounds normal. There is normal air entry. No stridor. No respiratory distress. He has no wheezes. He has no rhonchi. He has no rales. He exhibits no retraction. Abdominal: Soft. There is generalized abdominal tenderness and tenderness in the left upper quadrantand left lower quadrant. There is no rebound and no guarding. Maximal tenderness in the left upper and lower quadrants. Musculoskeletal: General: No edema. Cervical back: Normal range of motion and neck supple. Neurological: Alert and oriented to person, place, and time. He has normal sensation and normal strength. No cranial nerve deficit. Normal speech. Skin: Skin is warm and dry. No petechiae, no purpura and no rash noted. He is not diaphoretic. No cyanosis. No jaundice. Psychiatric: He has a normal mood and affect. Behavior is normal. Thought content normal. ASSESSMENT/PLAN IMPRESSION AND PLAN Adam Campbell is a 56-year-old male with a history of pancreatic cancer who presents to the emergency department for abdominal pain. The patient's physical exam is notable for tenderness, which is primarily on the left side. Differential diagnosis is broad but includes bowel obstruction, biliary obstruction, and other etiologies. The patient is hemodynamically stable and afebrile. My suspicion for cholangitis is low right now. We will check labs and obtain a CT abdomen/pelvis with IV contrast to further evaluate. Final disposition will depend on the results of testing and course of the patient's symptoms in the emergency department. I reviewed previous medical records including documentation from previous visits. I personally reviewed the lab result(s) and my interpretation is documented in ED Course. I personally reviewed the radiology image(s) and reviewed the radiology report(s). The Radiology exam interpretation(s) is/are documented in ED Course. Final Diagnoses: as of 10/24/21 0020 Abdominal Pain FIELD AGENT Hamzah English M.D. - 10/23/2021 7:19 PM CST SUBJECTIVE CHIEF COMPLAINT/REASON FOR VISIT No chief complaint on file. HISTORY OF PRESENT ILLNESS This is a 56-year-old male. He has a previous medical history of pancreatic cancer status post ERCP with stent placement, anxiety, previous portal vein thrombosis. He presents today due to abdominal pain. See Dr. Tesfaye's note for HPI, Exam, and MDM. REVIEW OF SYSTEMS Constitutional: Positive for fatigue. Negative for chills and fever. HENT: Negative for rhinorrhea and sore throat. Eyes: Negative for visual disturbance. Respiratory: Negative for cough and shortness of breath. Cardiovascular: Negative for chest pain. Gastrointestinal: Positive for abdominal pain and nausea. Negative for blood in stool, constipation,diarrhea and vomiting. Genitourinary: Negative for dysuria. Musculoskeletal: Negative for arthralgias. Neurological: Negative for weakness and numbness. Psychiatric/Behavioral: Negative for confusion. OBJECTIVE Initial Vitals Temp Pulse Heart Rate Resp BP SpO2 -- -- -- -- -- -- Pain Score -- PHYSICAL EXAMINATION ASSESSMENT/PLAN IMPRESSION AND PLAN This is a very pleasant 56-year-old gentleman presenting today with several days of epigastric pain,nausea, and anorexia. We obtained a CT scan which fortunately does not show any signs of stent obstruction. It does show evidence of pancreatitis, which matches the clinical symptoms he has had. We aregoing to admit him to oncology for symptomatic treatment. He is stable for floor level care. Final Diagnoses: as of 10/23/212347 Abdominal Pain Hamzah English M.D. Resident 10/23/212348 FIELD AGENT documented in this encounter Miscellaneous Notes Hospital Course - Jacquie Ledezma APRN, C.N.P., M.S.N. - 10/24/2021 10:10 AM CST Mr. Adam Campbell is a 56 y.o. male with past history notable for metastatic pancreatic adenocarcinoma with liver metastasis complicated by several episodes of acute cholangitis (last 03/2021), biliary strictures s/p stenting and exchange last (03/2021), and pancreatitis following ERCP, currently on a clinical trial with irinotecan, 5 FU and onvansertib since Aug 2021 (last chemotherapy on 10/15/21) who presents to the ED a 3 day history of abdominal pain and nausea without emesis. He does take Protonixdaily in the morning, but states that he has not taken this for last few days and has noticed that he has felt more acidic. He also recently doubled the number of Creon tablets (per MD instructions) hetakes as he reported having really foul smelling gas and this has helped. He denied having any fever, chills, shortness of breath, chest pain, vomiting, any new skin rashes or sores. He was constipated x 2 days and reports this is now improved. He reports that his abdominal pain is intermittent, periumbilical, and radiates to the left upper quadrant. ED workup was notable for stable hemoglobin, leukopenia and mild thrombocytopenia (likely chemotherapy related, he had these findings in the past). Normal transaminases and bilirubin and CT showed stable positioning of the stents, stable pancreatic head mass, progression of atrophy the pancreatic bodyand tail with some mild peripancreatic inflammatory changes. Patient was given 1L of IV hydration and IV dilaudid for pain. Given his ongoing pain and nausea, patient was admitted for observation and symptom management. Overnight, patient was placed on clear liquid diet, given an additional 2L of IV hydration and pain medications. Today, symptoms had improved. Vital signs were stable. Afebrile. He was restarted on hisPPI and advised to take twice daily for 1 week for possible gastritis. Continued to pass gas and stool. Given a dose of imodium for loose stools this morning. Denied nausea/vomiting. Diet was advanced throughout the day with no significant increase in symptoms. He was discharged today with repeat restaging imaging on 10/28 and follow up with medical oncology on Monday, 10/29. FIELD AGENT documented in this encounter Plan of Treatment Upcoming Encounters Date Type Specialty Care Team Description 06/22/2022 Lab Laboratory Medicine Maria Del Rosario Gomez AP RN, C.N.P., M.S. [address] [place] [address] [phone] (Mj godoy) 06/22/2022 Infusion Oncology Maria Del Rosario Gomez APRN, C.N .P., M.S. [address] [place] [address] [phone] (Mj rk) 06/29/2022 Lab Laboratory Medicine Maria Del Rosario Gomez AP RN, C.N.P., M.S. [address] [place] [address] [phone] (Mj rk) 06/29/2022 Infusion Oncology Maria Del Rosario Gomez APRN, C.N .P., M.S. [address] [place] [address] [phone] (Mj rk) documented as of this encounter Procedures Procedure Name Priority Date/Time Associated Comments Diagnosis CBC WITH Timed 10/24/2021 6:10 Results for DIFFERENTIAL, B AM [employer] FIELD AGENT this procedu re are in the results section. LIPASE, S/P Timed 10/24/2021 6:10 Results for AM FBI FIELD AGENT this procedure are in the results section. COMPREHENSIVE Timed 10/24/2021 6:10 Results for METABOLIC PANEL, S/P AM FBI FIELD AGENT this pr ocedure are in the results section. SARS CORONAVIRUS 2, Routine 10/24/2021 2:33 Resul ts for MOLECULAR DETECTION, AM FBI FIELD AGENT this pr ocedure PCR, VARIES are in the results section. VRE PCR Routine 10/24/2021 2:33 Results for AM FBI FIELD AGENT this procedure are in the results section. CT ABDOMEN PELVIS RAD - Semiurgent 10/23/2021 9:12 Res ults for WITH IV CONTRAST (Fast; most ED PM FBI FIELD AGENT this proc edure patients; some are in the inpatients) results section. LACTATE, B STAT 10/23/2021 8:17 Results for PM FBI FIELD AGENT this procedure are in the results section. HEPATIC FUNCTION STAT 10/23/2021 8:17 Results for PANEL, S PM FBI FIELD AGENT this procedure are in the results section. CBC WITH STAT 10/23/2021 8:17 Results for DIFFERENTIAL, B PM FBI FIELD AGENT this procedu re are in the results section. LIPASE, S/P STAT 10/23/2021 8:17 Results for PM FBI FIELD AGENT this procedure are in the results section. BASIC METABOLIC STAT 10/23/2021 8:17 Results f or PANEL, S/P PM FBI FIELD AGENT this procedure are in the results section. documented in this encounter Results (ABNORMAL) Lipase (10/24/2021 6:10 AM FBI FIELD AGENT) P athologist Signature Lipase, S 4 (L) 13 - 60 U/L 10/24/2021 7:06 DTL AM FBI FIELD AGENT Specimen Anatomical Collection Method Collection Time Receive d Time (Source) Location / / Volume Laterality Blood (Blood, 10/24/2021 6:10 AM 10/24/19 6:44 Venous) FBI FIELD AGENT AM FBI FIELD AGENT Trell Murillo M.D. LAB BLOOD ADD-ON Performing Organization Address City/State/ZIP Code Phon e Number [facility] - [address] [place], [place] [address] [facility] [place] [place] [address] [facility] [address] (ABNORMAL) Comprehensive Metabolic Panel (10/24/2021 6:10 AM FBI FIELD AGENT) P athologist Signature Potassium, S 3.7 3.6 - 5.2 10/24/2021 DTL mmol/L 7:02 AM FBI FIELD AGENT Sodium, S 136 135 - 145 10/24/2021 DTL mmol/L 7:02 AM FBI FIELD AGENT Chloride, S 103 98 - 107 10/24/2021 DTL mmol/L 7:02 AM FBI FIELD AGENT Bicarbonate, S 27 22 - 29 10/24/2021 DTL mmol/L 7:02 AM FBI FIELD AGENT Anion Gap 6 (L) 7 - 15 10/24/2021 DTL 7:02 AM FBI FIELD AGENT BUN (Blood Urea 10 8 - 24 10/24/2021 DTL Nitrogen), S mg/dL 7:02 AM FBI FIELD AGENT Creatinine 0.91 0.74 - 10/24/2021 DTL 1.35 mg/dL 7:02 AM FBI FIELD AGENT eGFR-Non >90 >=60 10/24/2021 DTL Black/ mL/min/BSA 7:02 AM FBI FIELD AGENT [place] Comment: ----ADDITIONAL INFORMATION---- Estimated GFR calculated using the 2009 CKD_EPI creatinine equation. eGFR-Black/ >90 >=60 mL/min/BSA 2021 7:02 AM FBI FIELD AGENT DTL Comment: ----ADDITIONAL INFORMATION---- Estimated GFR calculated using the 2009 CKD_EPI creatinine equation. Calcium, Total, S 8.0 (L) 8.6 - 10.0 mg/dL 10/24/2021 7:02 AM FBI FIELD AGENT DTL Glucose, S 89 70 - 140 mg/dL 10/24/2021 7:02 AM FBI FIELD AGENT D TL Protein, Total, S 5.4 (L) 6.3 - 7.9 g/dL 10/24/2021 7:02 A M FBI FIELD AGENT DTL Albumin, S 3.4 (L) 3.5 - 5.0 g/dL 10/24/2021 7:02 AM FBI FIELD AGENT D TL Aspartate Aminotransferase 19 8 - 48 U/L 10/24/2021 7 :02 AM FBI FIELD AGENT DTL (AST), S Alkaline Phosphatase, S 130 (H) 40 - 129 U/L 10/24/2021 7: 02 AM FBI FIELD AGENT DTL Alanine Aminotransferase 28 7 - 55 U/L 10/24/2021 7:0 2 AM FBI FIELD AGENT DTL (ALT), S Bilirubin, Total, S 0.4 <=1.2 mg/dL 10/24/2021 7:02 AM FBI FIELD AGENT DTL Specimen Anatomical Collection Method Collection Time Receive d Time (Source) Location / / Volume Laterality Blood (Blood, 10/24/2021 6:10 AM 10/24/19 6:45 Venous) FBI FIELD AGENT AM FBI FIELD AGENT Trell Murillo M.D. LAB BLOOD ADD-ON Performing Organization Address City/State/ZIP Code Phon e Number [facility] - [address] [place], [place] [address] [facility] [place] [address] [facility] [address] (ABNORMAL) CBC with Differential, Blood (10/24/2021 6:10 AM FBI FIELD AGENT) [facility] gist Method Time Signature Hemoglobin 10.5 (L) 13.2 - 10/24/2021 DTL 16.6 g/dL 6:37 AM FBI FIELD AGENT Hematocrit 31.3 (L) 38.3 - 10/24/2021 DTL 48.6 % 6:37 AM FBI FIELD AGENT Erythrocytes 3.72 (L) 4.35 - 10/24/2021 DTL 5.65 6:37 AM FBI FIELD AGENT x10(12)/L MCV 84.1 78.2 - 10/24/2021 DTL 97.9 fL 6:37 AM FBI FIELD AGENT RBC Distrib Width 15.2 (H) 11.8 - 10/24/2021 DTL 14.5 % 6:37 AM FBI FIELD AGENT Platelet Count 110 (L) 135 - 317 10/24/2021 DTL x10(9)/L 6:37 AM FBI FIELD AGENT Leukocytes 1.6 (L) 3.4 - 9.6 10/24/2021 DTL x10(9)/L 6:37 AM FBI FIELD AGENT Neutrophils 0.91 (L) 1.56 - 10/24/2021 DTL 6.45 6:37 AM FBI FIELD AGENT x10(9)/L Lymphocytes 0.31 (L) 0.95 - 10/24/2021 DTL 3.07 6:37 AM FBI FIELD AGENT x10(9)/L Monocytes 0.27 0.26 - 10/24/2021 DTL 0.81 6:37 AM FBI FIELD AGENT x10(9)/L Eosinophils 0.06 0.03 - 10/24/2021 DTL 0.48 6:37 AM FBI FIELD AGENT x10(9)/L Basophils <0.03 0.01 - 10/24/2021 DTL 0.08 6:37 AM FBI FIELD AGENT x10(9)/L Specimen Anatomical Collection Method Collection Time Receive d Time (Source) Location / / Volume Laterality Blood (Blood, 10/24/2021 6:10 AM 10/24/19 22 6:31 Venous) FBI FIELD AGENT AM FBI FIELD AGENT Trell Murillo M.D. LAB BLOOD ADD-ON Performing Organization Address [facility] Phon e Number [facility] - [address] [place], [place] [address] [facility] [place] [place] [address] [facility] [address] [facility] VRE PCR (10/24/2021 2:33 AM FBI FIELD AGENT) [facility] Method Time Signature Specimen Swab, 10/24/2021 DTL Source Perirectal 1:23 PM FBI FIELD AGENT VRE PCR Negative Negative 10/24/2021 DTL 1:23 PM FBI FIELD AGENT Comment: ----ADDITIONAL INFORMATION---- This test was developed using an analyte specific reagent. Its performance characteristics were determined by [facility] in a manner consistent with CLIA requirements. This test has not bee n cleared or approved by the U.S. Food and Drug Administration. Specimen Anatomical Collection Method Collection Time Receive d Time (Source) Location / / Volume Laterality Varies 10/24/2021 2:33 AM 7:39 (Perirectal) FBI FIELD AGENT AM FBI FIELD AGENT Vicky Moreno M.D. LAB MICROBIOLOGY - GENERAL O RDERABLES Performing Organization Address City/[facility] Phon e Number [facility] - [address] [place], [place] [address] [facility] [place] [address] [facility] [address] [facility] SARS Coronavirus 2, Molecular Detection, PCR, Varies Asymptomatic (10/24/2021 2:33 AM FBI FIELD AGENT) [facility] Method Time Signature COVID-19, Swab, 10/24/2021 DTL PCR, Source Nasopharynx 8:21 AM FBI FIELD AGENT COVID-19, Undetected Undetected 10/24/2021 DTL PCR, Result 8:21 AM FBI FIELD AGENT Comment: SARS-CoV-2 RNA absent. This result does not rule out COVID-19 in the patient, as the sensitivity of the test depends o n the timing of the specimen collection and quality of the specimen. Result should be correlated with patient's history and clinical presentat ion. ----ADDITIONAL INFORMATION---- This RT-PCR test using the [employer] SARS-Co V-2 Assay ( [place].) performed on the [employer] Two Module System has received Emergency Use Authorization (EUA) by the U.S. Food and Drug Administration, and is modified from the electrostatic painter's instructions with a bridging study. Performance characteristics were verifie d by [facility] in a manner consistent with CLIA requirements. Visit the CDC website: https://www.cdc.g ov/coronavirus/ for the most recent guidelines on [place] virus testing. Fact Sheet for Healthcare Providers: https://www.fda.gov/media/010655/downloa d Fact Sheet for Patients: https://www.fda.gov/media/350098/downloa d Specimen Anatomical Collection Method Collection Time Receive d Time (Source) Location / / Volume Laterality Varies 10/24/2021 2:33 AM 2 4:16 (Nasopharynx) FBI FIELD AGENT AM FBI FIELD AGENT Vicky Moreno M.D. LAB MICROBIOLOGY - GENERAL O RDERABLES Performing Organization Address City/State/[facility] Code Phon e Number [facility] - [address] [place], [place] [address] [facility] [place] [address] [facility] [address] [facility] [address] Abdomen Pelvis with IV Contrast (10/23/2021 9:12 PM FBI FIELD AGENT) Anatomical Region Laterality Modality Abdomen, Pelvis, Abdominal RST LOS, N/A Comp uted Tomography, Computed Abdominal ARZ LOS, Abdominal FLA LOS Dileep ography Specimen (Source) Anatomical Collection Method Collection Time Re ceived Time Location / / Volume Laterality 10/23/2021 9:01 PM FBI FIELD AGENT Impressions 10/23/2021 10:52 PM FBI FIELD AGENT 1. Stable positioning of the biliary stent and the transgastric pigtail drains in the left mid abdomen. 2. Redemonstration of the ill-defined hy poattenuating pancreatic head mass, consistent with patient's known pancreatic adenocarcinom a. 3. Interval progressive atrophy of the p ancreatic body and tail with persistent mild peripancreatic inflammatory changes, possibly represent ing changes of ongoing pancreatitis. 4. Stable marked narrowing of the portal venous confluence. 5. Right hepatic lobe metastasis appears stable or slightly decreased in size. 6. No significant change in tiny pulmona ry nodules in the visualized lung bases. Narrative 10/23/2021 10:52 PM FBI FIELD AGENT EXAM: ??CT ABDOMEN PELVIS WITH IV CONTRAST COMPARISON: ??CT abdomen/pelvis 08/13/20 21 FINDINGS: ??Stable positioning of the me tallic common bile duct stent. Unchanged expected pneumobilia in the left hepatic lobe. No significant change in mild left intrahepatic bile duct dilation. Stable positioning of the transgastric p igtail drains with tips in the left mid abdomen with no significant surrounding fluid collection . The colon remains tethered to the region of the pigtail drains without bowel obstruction. Redemonstration of the ill-defined hypod ensity of the uncinate process of the pancreas which is not significantly changed since 08/13/2021, consistent with known pancreatic adenocarcinoma. Mildly progressed atrophy of the pancreatic bod y and tail since the comparison exam. No substantial dilation of the pancreatic duct. Similar mild peripancreatic edema/stranding which is likely inflammatory. Unchanged narrowing of the portal vein n ear the portal vein-SMV confluence (series 3, image 50). 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 Slight decrease in portal venous phase e nhancement of hepatic segment 7 lesion posterior to the left hepatic vein (series 3, image 19), which may be due to later contrast timing as indicated by the nephrogram on this exam compared with . The lesion size is difficult to compare due to differences in contrast timing, but appe ars stable or slightly decreased in size since 08/13/2021. No new suspicious hepatic lesion. No definite change in tiny nodules in th e right paracolic gutter (series 3, images 79 and 83). Trace free fluid in the pelvis. The spleen, gallbladder, adrenal glands and kidneys are normal. Stable prominent mesenteric lymph nodes in the right mid abdomen and right lower quadrant. 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 No suspicious osseous lesi ons. No significant change in tiny pulmonary nodules in the lung bases. Right greater than left basilar atelectasis. Procedure Note Jas Almanzar M.D., Ph.D. - 2 EXAM: CT ABDOMEN PELVIS WITH IV CONTRAST COMPARISON: CT abdomen/pelvis 08/13/2021 FINDINGS: Stable positioning of the meta llic common bile duct stent. Unchanged expected pneumobilia in the left hepatic lobe. No significant change in mild left intrahepatic bile duct dilation. Stable positioning of the transgastric p igtail drains with tips in the left mid abdomen with no significant surrounding fluid collection . The colon remains tethered to the region of the pigtail drains without bowel obstruction. Redemonstration of the ill-defined hypod ensity of the uncinate process of the pancreas which is not significantly changed since 08/13/2021, consistent with known pancreatic adenocarcinoma. Mildly progressed atrophy of the pancreatic bod y and tail since the comparison exam. No substantial dilation of the pancreatic duct. Similar mild peripancreatic edema/stranding which is likely inflammatory. Unchanged narrowing of the portal vein n ear the portal vein-SMV confluence (series 3, image 50). 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 Slight decrease in portal venous phase e nhancement of hepatic segment 7 lesion posterior to the left hepatic vein (series 3, image 19), which may be due to later contrast timing as indicated by the nephrogram on this exam compared with . The lesion size is difficult to compare due to differences in contrast timing, but appe ars stable or slightly decreased in size since 08/13/2021. No new suspicious hepatic lesion. No definite change in tiny nodules in th e right paracolic gutter (series 3, images 79 and 83). Trace free fluid in the pelvis. The spleen, gallbladder, adrenal glands and kidneys are normal. Stable prominent mesenteric lymph nodes in the right mid abdomen and right lower quadrant. 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 No suspicious osseous lesi ons. No significant change in tiny pulmonary nodules in the lung bases. Right greater than left basilar atelectasis. IMPRESSION: 1. Stable positioning of the biliary domenica nt and the transgastric pigtail drains in the left mid abdomen. 2. Redemonstration of the ill-defined hy poattenuating pancreatic head mass, consistent with patient's known pancreatic adenocarcinom a. 3. Interval progressive atrophy of the p ancreatic body and tail with persistent mild peripancreatic inflammatory changes, possibly represent ing changes of ongoing pancreatitis. 4. Stable marked narrowing of the portal venous confluence. 5. Right hepatic lobe metastasis appears stable or slightly decreased in size. 6. No significant change in tiny pulmona ry nodules in the visualized lung bases. Hamzah English M.D. IMG CT PROCEDURES (ABNORMAL) Hepatic Function Panel (10/23/2021 8:17 PM FBI FIELD AGENT) Patholo gist Method Time Signature Bilirubin, Total, S 0.6 <=1.2 10/23/2021 DTL mg/dL 9:26 PM FBI FIELD AGENT Bilirubin, Direct, S 0.2 0.0 - 0.3 10/23/2021 DTL mg/dL 9:26 PM FBI FIELD AGENT Aspartate 24 8 - 48 10/23/2021 DTL Aminotransferase U/L 9:26 PM FBI FIELD AGENT (AST), S Alanine 35 7 - 55 10/23/2021 DTL Aminotransferase U/L 9:26 PM FBI FIELD AGENT (ALT), S Alkaline 148 (H) 40 - 129 10/23/2021 DTL Phosphatase, S U/L 9:26 PM FBI FIELD AGENT Albumin, S 3.9 3.5 - 5.0 10/23/2021 DTL g/dL 9:26 PM FBI FIELD AGENT Protein, Total, S 6.5 6.3 - 7.9 10/23/2021 DTL g/dL 9:26 PM FBI FIELD AGENT Specimen Anatomical Collection Method Collection Time Receive d Time (Source) Location / / Volume Laterality Blood (Blood, 10/23/2021 8:17 PM 10/23/19 22 9:10 Venous) FBI FIELD AGENT PM FBI FIELD AGENT Hamzah English M.D. LAB BLOOD ADD-ON Performing Organization Address City/State/ZIP Code Phon e Number [facility] - [address] [place], [place] [address] [facility] [place] [address] [facility] [address] Lactate, B (10/23/2021 8:17 PM FBI FIELD AGENT) P athologist Signature Lactate, B 0.8 0.5 - 2.2 10/23/2021 STMA mmol/L 8:42 PM FBI FIELD AGENT Specimen Anatomical Collection Method Collection Time Receive d Time (Source) Location / / Volume Laterality Blood (Blood, 10/23/2021 8:17 PM 10/23/19 8:36 Venous) FBI FIELD AGENT PM FBI FIELD AGENT Hamzah English M.D. LAB BLOOD NON ADD-ON Performing Organization Address City/[facility]/ZIP [facility] Phon e Number [facility] - [address] [place] [address] [facility] [place] [address] (ABNORMAL) Lipase (10/23/2021 8:17 PM FBI FIELD AGENT) athologist Signature Lipase, S 5 (L) 13 - 60 U/L 10/23/2021 9:26 DTL PM FBI FIELD AGENT Specimen Anatomical Collection Method Collection Time Receive d Time (Source) Location / / Volume Laterality Blood (Blood, 10/23/2021 8:17 PM 10/23/19 9:10 Venous) FBI FIELD AGENT PM FBI FIELD AGENT Hamzah English M.D. LAB BLOOD ADD-ON Performing Organization Address City/[facility] Phon e Number [facility] - [address] [place], [place] [address] [facility] [place] [address] (ABNORMAL) Basic Metabolic Panel (10/23/2021 8:17 PM FBI FIELD AGENT) athologist Signature Potassium, P 3.6 3.6 - 5.2 10/23/2021 [facility] mmol/L 8:54 PM FBI FIELD AGENT Sodium, P 136 135 - 145 10/23/2021 [facility] mmol/L 8:54 PM FBI FIELD AGENT Chloride, P 97 (L) 98 - 107 10/23/2021 [facility] mmol/L 8:54 PM FBI FIELD AGENT Bicarbonate, P 24 22 - 29 10/23/2021 [facility] mmol/L 8:54 PM FBI FIELD AGENT Anion Gap, P 15 7 - 15 10/23/2021 [facility] 8:54 PM FBI FIELD AGENT BUN (Blood Urea 13 8 - 24 10/23/2021 [facility] Nitrogen), P mg/dL 8:54 PM FBI FIELD AGENT Creatinine 0.85 0.74 - 10/23/2021 [facility] 1.35 mg/dL 8:54 PM FBI FIELD AGENT eGFR-Black/Afri >90 >=60 10/23/2021 [facility] can [place] mL/min/BSA 8:54 PM FBI FIELD AGENT Comment: ----ADDITIONAL INFORMATION---- Estimated GFR calculated using the 2009 CKD_EPI creatinine equation. eGFR Non-Black/ >90 >=60 mL/min/BSA 10/23/2021 8:54 PM FBI FIELD AGENT [facility] Comment: ----ADDITIONAL INFORMATION---- Estimated GFR calculated using the 2009 CKD_EPI creatinine equation. Calcium, Total, P 8.6 8.6 - 10.0 mg/dL 10/23/2021 8:54 PM FBI FIELD AGENT [facility] Glucose, P 108 70 - 140 mg/dL 10/23/2021 8:54 PM FBI FIELD AGENT S TMA Specimen Anatomical Collection Method Collection Time Receive d Time (Source) Location / / Volume Laterality Blood (Blood, 10/23/2021 8:17 PM 10/23/19 8:36 Venous) FBI FIELD AGENT PM FBI FIELD AGENT Hamzah English M.D. LAB BLOOD ADD-ON Performing Organization Address City/State/ZIP Code Phon e Number [facility] - [facility] [address] [place], [place] [address] [place] [address] [facility] [address] [facility] (ABNORMAL) CBC with Differential, Blood (10/23/2021 8:17 PM FBI FIELD AGENT) [facility] Method Time Signature Hemoglobin 11.4 (L) 13.2 - 10/23/2021 [facility] 16.6 g/dL 8:39 PM FBI FIELD AGENT Hematocrit 34.4 (L) 38.3 - 10/23/2021 [facility] 48.6 % 8:39 PM FBI FIELD AGENT Erythrocytes 4.01 (L) 4.35 - 10/23/2021 [facility] 5.65 8:39 PM FBI FIELD AGENT x10(12)/L MCV 85.8 78.2 - 10/23/2021 [facility] 97.9 fL 8:39 PM FBI FIELD AGENT RBC Distrib Width 14.7 (H) 11.8 - 10/23/2021 [facility] 14.5 % 8:39 PM FBI FIELD AGENT Platelet Count 124 (L) 135 - 317 10/23/2021 [facility] x10(9)/L 8:39 PM FBI FIELD AGENT Leukocytes 1.8 (L) 3.4 - 9.6 10/23/2021 [facility] x10(9)/L 8:39 PM FBI FIELD AGENT Neutrophils 1.23 (L) 1.56 - 10/23/2021 [facility] 6.45 8:39 PM FBI FIELD AGENT x10(9)/L Lymphocytes 0.23 (L) 0.95 - 10/23/2021 [facility] 3.07 8:39 PM FBI FIELD AGENT x10(9)/L Monocytes 0.30 0.26 - 10/23/2021 [facility] 0.81 8:39 PM FBI FIELD AGENT x10(9)/L Eosinophils 0.06 0.03 - 10/23/2021 [facility] 0.48 8:39 PM FBI FIELD AGENT x10(9)/L Basophils <0.03 0.01 - 10/23/2021 [facility] 0.08 8:39 PM FBI FIELD AGENT x10(9)/L Specimen Anatomical Collection Method Collection Time Receive d Time (Source) Location / / Volume Laterality Blood (Blood, 10/23/2021 8:17 PM 10/23/19 22 8:36 Venous) FBI FIELD AGENT PM FBI FIELD AGENT Hamzah English M.D. 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 Use 100 mL bag then disca rd. enoxaparin injection 40 mg Given 10/24/2021 3:30 AM FBI FIELD AGENT 40 mg Right Lower Abdomen (LOVENOX) 40 mg, subcutaneous, Every 24 hours scheduled, First dose on 10/24/21 at 0330 heparin flush 500 Units Given 10/24/2021 2:39 PM FBI FIELD AGENT 500 Units 500 Units, intra-catheter, During hospitalization, line care, Prior to discharge, Starting on [place] 10/24/21 at 0232, For 1 dose, Implanted Vascular Access Device (IVAD) Venous Non-Valved: Following saline flush prior to discharge. HYDROmorphone (PF) injection 0.4 mg (DIL AUDID) 0.4 mg, intravenous, Every 1 hour PRN, s evere pain or score 7-10 of 10, Starting on [place] 10/24/21 at 0309 HYDROmorphone injection 0.2 mg (DILAUDID ) Given 10/23/2021 8:21 PM FBI FIELD AGENT 0.2 mg 0.2 mg, intravenous, Once, On [facility] 10/23/21 at 1949, For 1 dose HYDROmorphone injection 0.2 mg (DILAUDID ) Given 10/23/2021 10:43 PM FBI FIELD AGENT 0.2 mg 0.2 mg, intravenous, Once, On [facility] 10/23/21 at 2240, For 1 dose HYDROmorphone injection 0.2 mg (DILAUDID ) Given 10/24/2021 2:05 AM FBI FIELD AGENT 0.2 mg 0.2 mg, intravenous, Once, On [place] 10/24/21 at 0205, For 1 dose HYDROmorphone tablet 2 mg (DILAUDID) Given 10/24/2021 12:53 PM FBI FIELD AGENT 2 mg 2 mg, oral, Every 4 hours PRN, moderate pain or score 4-6 of 10, Starting on [place] 10/24/21 at 0241 Given 10/24/2021 7:40 AM FBI FIELD AGENT 2 mg Given 10/24/2021 3:16 AM FBI FIELD AGENT 2 mg iohexoL 300 mg iodine/mL solution 1-200 mL Given 10/23/2021 8:54 PM FBI FIELD AGENT 140 mL (OMNIPAQUE) 1-200 mL, intravenous, Once in imaging, contrast, Starting on [facility] 10/23/21 at 2053, For 1 dose, Imaging Protocol Orders, Dose per Radiant Medication Guidelines lactated Ringer's bolus 1,000 mL New Bag 10/24/2021 3:27 AM FBI FIELD AGENT 1,000 mL 250 mL/hr 1,000 mL, intravenous, at 250 mL/hr, Administer over 4 Hours, Once, On [place] 10/24/21 at 0315, For 1 dose heeydv-xrrynsba-[id number] Given 10/24/2021 12:53 PM 40,000 Units o f 20,000-63,000- 84,[address] FBI FIELD AGENT lipase capsule 40,000 Units of lipase (ZENPEP) 40,000 Units of lipase, oral, 3 times daily with meals, First dose on 10/24/21 at 0800, ZENPEP lipase 20,000/63,000/84,000 units were interchanged for lipase content 15,000 to < 25,000 units oral cap/tab Do NOT crush or chew. Capsule may be opened and the contents taken without crushing or chewing. loperamide capsule 2 mg (IMODIUM A-D) Given 10/24/2021 1:07 PM FBI FIELD AGENT 2 mg 2 mg, oral, 4 times daily PRN, diarrhea, Starting on 10/24/21 at 1304 NaCl 0.9 % bolus 1,000 mL New Bag 10/23/2021 8:21 PM FBI FIELD AGENT 1,000 mL 1000 mL/hr 1,000 mL, intravenous, at 1,000 mL/hr, Administer over 1 Hours, Once, On 10/23/21 at 1949, For 1 dose NaCl 0.9% infusion 10-250 mL/hr, intravenous, As needed, Be tween Consecutive Piggyback Medications, Starting on 10/24/21 at 0231, Infuse at the same ra te as the piggyback until tubing clears or up to a volume of 20 mL . Select for IV medication administration when no maintenance IV available or when IV medication s are not compatible with maintenance fluid. NaCl 0.9% infusion 10-250 mL/hr, intravenous, As needed, Post Medications (Hazardous/Low Fluid Volume), Starting on 10/24/21 at 0232 , Infuse at the same rate as the medication until tubing cleared of medication, then discard. NaCl 0.9% infusion New Bag 10/24/2021 8:57 AM FBI FIELD AGENT 100 mL/hr 100 mL/hr 100 mL/hr, intravenous, Continuous, Starting on 10/24/21 at 0815, For 10 hours NaCl 0.9% infusion New Bag 10/24/2021 10:07 AM FBI FIELD AGENT 250 mL/hr 250 mL/hr 250 mL/hr, intravenous, Continuous, Starting on [place] 10/24/21 at 0945, For 4 hours ondansetron (PF) injection 4 mg (ZOFRAN) Given 10/24/2021 1:44 AM FBI FIELD AGENT 4 mg 4 mg, intravenous, Every 4 hours PRN, nausea, vomiting, Starting on 10/23/21 at 1948 Given 10/23/2021 8:21 PM FBI FIELD AGENT [address] tablet 40 mg (PROTONIX) Given 10/24/2021 6:14 AM FBI FIELD AGENT 40 mg 40 mg, oral, 2 times daily before breakfast and dinner, First dose on 10/24/21 at 0700, Swallow whole. Do NOT crush, chew, or split tablet. sodium chloride (PF) 0.9 % injection 1-1 00 mL Given 10/23/2021 8:54 PM FBI FIELD AGENT 50 mL 1-100 mL, intravenous, Once, On 10/23/21 at 2054, For 1 dose, Imaging Protocol Orders sodium chloride 0.9 % injection 10 mL 10 mL, intravenous, During hospitalizati on, line care, Prior to discharge, Starting on [place] 10/24/21 at 0232, For 1 dose, Impl anted Vascular Access Device (IVAD) Venous Non-Valved: Followed by heparin flush prior to dischar ge. sodium chloride 0.9 % injection 10 mL Given 10/24/2021 2:39 PM FBI FIELD AGENT 10 mL 10 mL, intravenous, As needed, line care, Starting on [place] 10/24/21 at 0318, Peripheral Intravenous Catheter and Rapid Infusion Catheter, prior to blood sampling, post blood transfusion or post blood sampling sodium chloride 0.9 % injection 3 mL Given 10/24/2021 8:56 AM FBI FIELD AGENT 3 mL 3 mL, intravenous, Every 12 hours scheduled, First dose on [place] 10/24/21 at 0900, Peripheral Intravenous Catheter and Rapid Infusion Catheter, when no infusion to maintain patency documented in this encounter Active and Recently Administered Medications Times are shown in FBI FIELD AGENT. Scheduled Medication Order 10/22/2021 10/23/2021 10/24/2021 enoxaparin injection 40 mg (LOVENOX) 0330 (Given - Provider: Sheree Butts R.N.) 40 mg, subcutaneous, Every 24 hours sche duled, First dose on 10/24/21 at 0330 gabapentin capsule 600 mg (NEURONTIN) 600 mg, oral, Daily at bedtime, First dose on 10/24/21 at 210 0 HYDROmorphone injection 0.2 mg (DILAUDID) (COMPLETED) 2020 (Given - Provider: Buzz Warner RRiazNRiaz) 0.2 mg, intravenous, Once, On 10/23/21 at 1949, For 1 dose HYDROmorphone injection 0.2 mg (DILAUDID) (COMPLETED) 2243 (Given - Provider: Buzz Warner RRiazNRiaz) 0.2 mg, intravenous, Once, On 10/23/21 at 2240, For 1 dose HYDROmorphone injection 0.2 mg (DILAUDID) (COMPLETED) 0205 (Given - Provider: Buzz Warner R.NRiaz) 0.2 mg, intravenous, Once, On 10/24/21 at 0205, For 1 dose lactated Ringer's bolus 1,000 mL (COMPLETED) 0327 (New Bag - Provider: Sheree Butts R.N.)0727 (Stopped - Provider: Jacqui Chen R.N. - Comment: finished) 1,000 mL, intravenous, at 250 mL/hr, Adm inister over 4 Hours, Once, On 10/24/21 at 0315, For 1 dose ofxdja-vxzshkiz-divfvdb 20,000-63,000- 8 4,[address] capsule 40,000 Units of lipase (ZENPEP) 0923 (Not Given - Pr ovider: Jacqui Chen RRiazN. - Reason: Contraindicated - Comment: no fat with breakfast)1253 (Given - Provider: Jacqui Chen, R.N.) 40,000 Units of lipase, oral, 3 times da elvie with meals, First dose on 10/24/21 at 0800, ZENPEP lipase 20,000/63,000/84,000 units were interchanged for lipase content 15,000 to < 25,000 units oral cap/tab Do NOT crush or chew. Capsule ma y be opened and the contents taken without crushing or chewing. NaCl 0.9 % bolus 1,000 mL (COMPLETED) 20 21 (New Bag - Provider: Cipriano DuncanN.)2144 (Stopped - Provider: Cipriano DuncanN.) 1,000 mL, intravenous, at 1,000 mL/hr, A dminister over 1 Hours, Once, On 10/23/21 at 1949, For [address] tablet 40 mg (PROTONIX) 0614 (Given - Provider: Sheree Butts RRiazNRiaz) 40 mg, oral, 2 times daily before breakf ast and dinner, First dose on 10/24/21 at 0700, Swallow whole. Do NOT crush, chew, or split tablet. sennosides-docusate sodium 8.6-50 mg per tablet 3 tablet (SENOKO T-S) 0802 (Not Given - Provider: Jacqui Chen R.N. - Reason: Contraindicated - Comment: pt having diarrhea) 3 tablet, oral, 2 times daily, First dose on 10/24/21 at 0900 sodium chloride (PF) 0.9 % injection 1-100 mL (COMPLETED) 2053 (Given - Provider: Patricia Carmona, M.P.H., R.N., C.M.S.R.N.) 1-100 mL, intravenous, Once, On Sat 10/23 at 205, For 1 dose, Imaging Protocol Orders sodium chloride 0.9 % injection 3 mL 0856 (Given - Provider: Jacqui Chen R.N.) 3 mL, intravenous, Every 12 hours schedu led, First dose on 10/24/21 at 0900, Peripheral Intravenous Catheter and Rapid Infusion Catheter, when no infusion to maintain patency Continuous Medication Order 10/22/2021 10/23/2021 10/24/2021 NaCl 0.9% infusion (CANCELED) 08 57 (New Bag - Provider: Jacqui Chen, R.N.)1006 (Stopped - Provider: Jacqui Chen, R.N.) 100 mL/hr, intravenous, Continuous, Star ting on 10/24/21 at 0815, For 10 hours NaCl 0.9% infusion 1007 (New Bag - Provider: Jacqui Chen, R.N.)1400 (Stopped - Provider: Jacqui Chen R.N.) 250 mL/hr, intravenous, Continuous, Star ting on 10/24/21 at 0945, For 4 hours PRN Medication Order 10/22/2021 10/23/2021 10/24/2021 acetaminophen tablet 1,000 mg (TYLENOL) 0740 (Not Given - Provider: Jacqui Chen RJohn. - Reason: Patient/family refused) 1,000 mg, oral, Every 6 hours PRN, mild pain or score 1-3 of 10, headaches, fever, Starting on 10/24/21 at 0318 calcium carbonate chewable tablet 400 mg of calcium (TUMS) 400 mg of calcium, oral, Every 2 hour DC N, heartburn, indigestion, Starting on 10/24/21 at 0319, Doses listed are in mg of elemental calcium. Take with food. 500 mg calcium carbonate contains 200 mg of elemental calcium. D5W infusion 10-250 mL/hr, intravenous, As needed, Me dications Incompatible with 0.9% NaCL, Starting on 10/24/21 at 0232, Infuse at the same rate as the piggyback until tubing clears or up to a volume of 20 mL pr e and post infusion for medications inco mpatible with 0.9% NaCL. Use 100 mL bag then discard. heparin flush 500 Units (COMPLETED) 1439 (Given - Provider: Denton Sharma RMariajose) 500 Units, intra-catheter, During hospit alization, line care, Prior to discharge, Starting on 10/24/21 at 0232, For 1 dose, Implanted Vascular Access Device (IVAD) Venous Non-Valved: Following saline flush prior to discharge. HYDROmorphone (PF) injection 0.4 mg (DILAUDID) 0.4 mg, intravenous, Every 1 hour PRN, s evere pain or score 7-10 of 10, Starting on 10/24/21 at 0309 HYDROmorphone tablet 2 mg (DILAUDID) 0316 (Given - Provider: Sheree Butts R.N.)0740 (Given - Provider: Jacqui Chen R.N.)1253 (Given - Provider: Jacqui Chen RRaizNRiaz) 2 mg, oral, Every 4 hours PRN, moderate pain or score 4-6 of 10, Starting on 10/24/21 at 0241 iohexoL 300 mg iodine/mL solution 1-200 mL (OMNIPAQUE) (COMP LETED) 2053 (Given - Provider: Patricia Carmona M.P.H., R.N., C.M.S.R.N. - Comment: Lot [id number]) 1-200 mL, intravenous, Once in imaging, contrast, Starting on 10/23/21 at 2053, For 1 dose, Imaging Protocol Orders, Dose per Radiant Medication Guidelines loperamide capsule 2 mg (IMODIUM A-D) 1307 (Given - Provider: Jacqui Chen RRiazNRiaz) 2 mg, oral, 4 times daily PRN, diarrhea, Starting on 10/24/21 at 1304 NaCl 0.9% infusion 10-250 mL/hr, intravenous, As needed, Be tween Consecutive Piggyback Medications, Starting on 10/24/21 at 0231, Infuse at the same rate as the piggyback until tubing clears or up to a volume of 20 mL. Select for IV medication administration when no maintenance IV available or when IV medications are not compatible with maintenance fluid. NaCl 0.9% infusion 10-250 mL/hr, intravenous, As needed, Po st Medications (Hazardous/Low Fluid Volume), Starting on 10/24/21 at 0232, Infuse at the same rate as the medication until tubing cleared of medication, then discard. ondansetron (PF) injection 4 mg (ZOFRAN) 2020 (Given - Provider: Buzz Warner RRiazNRiaz) 0144 (Given - Provider: Kami Rene RRiaz NRiaz) 4 mg, intravenous, Every 4 hours PRN, na usea, vomiting, Starting on 10/23/21 at 1948 sodium chloride 0.9 % injection 10 mL 10 mL, intravenous, During hospitalizati on, line care, Prior to discharge, Starting on 10/24/21 at 0232, For 1 dose, Implanted Vascular Access Device (IVAD) Venous Non-Valved: Followed by heparin flush prior to discharge. sodium chloride 0.9 % injection 10 mL 1439 (Given - Provider: Denton Sharma RRiazNRiaz) 10 mL, intravenous, As needed, line care , Starting on 10/24/21 at 0318, Peripheral Intravenous Catheter and Rapid Infusion Catheter, prior to blood sampling, post blood transfusion or post blood sampling sodium chloride 0.9 % injection 3 mL 3 mL, intravenous, As needed, line care, Starting on 10/24/21 at 0318, Prior to and following infusion and between multiple consecutive infusions: sodium chloride 0.9 % injection documented in this encounter Additional Health Concerns Infection Onset Date Last Indicated Resolved Time COVID19 Pending 10/24/2021 10/24/2021 10/24/2021 8:21 AM FBI FIELD AGENT Assessment Noted Time PHQ-9 Depression Total Score: 2 10/01/2021 10:34 AM CS T documented as of this encounter Care Teams Dietary Services Director Relationship Specialty Start Date End Date Elsewhere, Pcp PCP - General Family Medicine 08/12/20 documented as of this encounter
--- OUTSIDE RECORDS SUMMARY | 2022-06-18 16:06 | XMS_ITS | Encounter Summary ---
:1965 Author Organization [facility] Address [address] [place] [address] Care Team Providers Name Role Phone Elsewhere, Pcp Primary Care Provider Unavailable Reason for Visit Reason Comments Vomiting Auth/Cert Specialty Diagnoses / Procedures Referred By Contact Refer red To Contact Diagnoses Nausea And Vomiting Malignant Neoplasm Of Other Parts Of Pancreas (HCC) Abdominal Pain Procedures ETU Referral ID Status Reason Start Date Expiration Date Visits Requ ested Visits Authorized [id number] 1 1 Encounter Details Date Type Department Care Team Description 10/25/2021 - Hospital Encounter [facility] Angelo Rodriguez M.D., M.S. [address] [place] [phone] Nausea And Vomiting (Primary Dx); 10/29/2021 [facility], Javan Modi M.D., Ph.D. [address] [place] [phone] Abdominal Pain; [place], [facility] Malignant Neoplasm Of Other Parts Of Pancreas (HCC) Building, Fourth Floor [address] [place] [address] Social History Tobacco Use Types Packs/Day Years [...] How often do you attend holiness or jain services? Never 01/15/2021 Do you belong to [...] Date Recorded Male 08/18/2021 2:55 PM PRODUCT LINE MANAGER documented as of this encounter Last Filed Vital Signs Vital Sign Reading Time Taken Comments Blood Pressure 91/63 10/29/2021 6:20 AM PRODUCT LINE MANAGER Pulse 92 10/29/2021 11:26 AM PRODUCT LINE MANAGER Temperature 36.7 ??C (98.1 ??F) 10/29/2021 11:26 AM PRODUCT LINE MANAGER Respiratory Rate 16 10/29/2021 11:26 AM PRODUCT LINE MANAGER Oxygen Saturation 97% 10/29/2021 6:20 AM PRODUCT LINE MANAGER Inhaled Oxygen Concentration - - Weight 76.9 kg (169 lb 8.5 oz) 10/25/2021 3:14 PM PRODUCT LINE MANAGER Height 167.6 cm (5' 5.98) 10/25/2021 3:16 PM PRODUCT LINE MANAGER Body Mass Index 27.38 10/25/2021 3:14 PM PRODUCT LINE MANAGER documented in this encounter Discharge Summaries Raymond Rodriguez M.D. - 10/29/2021 8:53 AM CST DISCHARGE SUMMARY BRIEF OVERVIEW Hospital: [facility] Discharge Provider: Javan Mistry M.D. Primary Team: [facility] Primary Care Providers: Elsewhere, Pcp (General) No address on file Primary Care Provider Phone Number: None Primary Care Provider Fax Number: None Admission Date: 10/25/2021 Discharge Date: 10/29/2021 PRINCIPAL DIAGNOSIS Nausea And Vomiting SECONDARY DIAGNOSES Principal Problem: Nausea And Vomiting Resolved Problems: * No resolved hospital problems. * Principal Problem: Nausea And Vomiting Diarrhea Resolved Problems: Nausea and vomiting Diarrhea DISCHARGE DISPOSITION Home or Self Care [1] ACTIVE ISSUES REQUIRING FOLLOW UP None OUTPATIENT FOLLOW UP Scheduled Appointments 11/04/2021 8:10 AM Maria Del Rosario Gomez APRN, C.N.Pamela., M.S. Oncology 11/04/2021 2:00 PM ONC CHAIR CHEMO 08 [facility] Oncology 11/12/2021 9:00 AM ONC CHAIR CHEMO 39 [facility]; LAB BLOOD [facility] 10 E Laboratory Medicine 11/12/2021 11:00 AM Emma Mora R.N. Oncology 11/12/2021 11:10 AM Vladislav Zarco M.D. Oncology 11/12/2021 1:00 PM PAL PROVIDER 01 [facility] Palliative Medicine 11/12/2021 2:15 PM ONC CHAIR CHEMO 38 [facility] Oncology 11/24/2021 12:50 PM ERASTO CARDIOPULMONARY PHYSICAL THERAPIST PORT DRAW [facility] Infusion Therapy 11/24/2021 1:30 PM Emma Mora R.N. Oncology 11/24/2021 1:50 PM Jesse Perkins P.A.-C., M.S. Oncology For appointment details refer to your Patient Appointment Guide. TEST RESULTS PENDING AT DISCHARGE Pending Labs None DETAILS OF HOSPITAL STAY REASON FOR ADMISSION Nausea And Vomiting Malignant Neoplasm Of Other Parts Of Pancreas (HCC) Abdominal Pain HOSPITAL COURSE Mr. Campbell is a 56 yo M with PMHx notable for metastatic pancreatic adenocarcinoma with known liver metastasis complicated by several episodes of acute cholangitis (last 03/2021), biliary strictures s/pstenting and exchange last (03/2021), and pancreatitis following ERCP, had been taking part of a clini rudy trial with irinotecan, 5-FU and onvansertib since Aug 2021 (last chemotherapy on 10/15/21) who presents to the ED with abdominal pain, nausea/vomiting, and trouble passing gas. Day 10 of onvarsetib was held due to abdominal pain and nausea on cycle 4 day 9. Patient was discharged home on 10/25/2021 after an overnight admission for symptomatic management of ongoing pain and nausea. He states that he had been feeling better but not back to his baseline. Woke up at 4 AM on 10/25/2021 with abdominal pain and had an episode of emesis. ED workup had a CT abdomen pelvis showed no evidence of bowel obstruction and no changes in pancreatic neoplasm with ongoing changes of pancreatitis. There was also no change in hepatic metastases. There was a biliary stent in the distal common bile duct which extended to th duodenum which is unchanged and showed no evidence of obstruction.. No significant biliary dilation was noted. Lipase low at 4,AST and ALT WNL, Alk Phos 145 with a normal lactate and both direct and indirect bilirubin are normal. WBCs 2.1 and Hgb is 11.8. Images from prior confirmed biliary stent obstruction studied for comparison and are included in the HPI. He remained stable and started to have watery bowel movements with a negative stool pathogen panel. We advanced his diet as tolerated and controlled his symptoms with supportive care. He was reassured that there was no evidence of any acute emergent process that required urgent intervention and that his biliary stents were clear on CT scan. Images were shown to the patient at bedside. The nausea/vomiting and diarrhea was likely chemotherapy related. He was discharged in stable condition on 10/29/2021. CONSULTS ORDERED DURING THIS ADMISSION IP CONSULT TO DIETITIAN CONDITION AT DISCHARGE Stable Discharge instructions were provided to the patient and caregiver(s). UCT LINE MANAGER documented in this encounter Discharge Instructions Discharge InstructionsRaymond Rodriguez M.D. - 10/29/2021 8:53 AM CST You were discharged from the [facility] Service. Please identify this service name if youcall with questions after hospitalization. - New prescriptions for dissolvable Zofran and Imodium were sent to the [facility]. UCT LINE MANAGER AttachmentsThe following attachments cannot be sent through Care Everywhere. Loperamide (By mouth) (Kenyan)Ondansetron (By mouth, Into the mouth) (Kenyan) documented in this encounter Medications at Time [...] needed for pain Indication: Chronic Pain/Nonacute Pain. [id number] Take 2 capsules by 240 capsule 3 [...] at bedtime. documented as of this encounter Progress Notes Javan Mistry M.D., Ph.D. - 10/28/2021 7:32 PM CST I saw Mr. Campbell today after he came to the unit. I am in agreement with the note by resident Raymond Rodriguez. Mr.??Adam Campbell??is a 56 y.o.??male??with past history notable for metastatic pancreatic adenocarcinoma with liver metastasis on??clinical trial with irinotecan, 5 FU and onvansertib??since Aug 2021, last chemo was 10/15/21, who??returns??to the ED??with n/v. Patient remains concerned for possible biliary stent obstruction which was expressed on the evening of 10/23/2021, this was not suspectedbased on CT findings are labs, however, there was some??persistent mild peripancreatic inflammatory changes??on CT and he is admitted with concern for possible progression of mild pancreatitis.??Pt comp lained that his GI symptoms have started after beginning the clinical trial. On clinical trial with 5FU/liposomal irinotecan and experimental drug days 1-10. day 10 of onvarsetib held due to abdominal pain/nausea on cycle 4/day 9. ?? #1 Nausea And Vomiting #2 Malignant Neoplasm Of Pancreas (HCC) #3 Pain Cancer Associated #4 Diarreha Chemo related diarrhea, no significant improvement. Still watery, >6 times a day. Continue IVF and imodium. Nausea helped by zofran. He tolerated liquid diet. Will advance diet today. Likely discharge planning in 1-2 days. ?? UCT LINE MANAGER David Walker - 10/28/2021 1:06 PM CST Encounter: Spiritual Care Support Situation: Mr. Campbell talked about his pancreatic cancer. He shared that the chemo's been very hard on him that he had to stop the treatment until they figure out a more tolerable treatment. Family: present. He talked about his 2 daughters. Neyda Tradition: Taoism- Frustration: Mr. Campbell mentioned the difficulty doing what he enjoys doing. Right now he can't do much which is a little frustrating for him. Prayer: He requested a prayer which was provided. Plan: Will remain available for spiritual care as needed or requested. Chaplains can be contacted bypaging [phone] (Yazidi). UCT LINE MANAGER Raymond Rodriguez M.D. - 10/28/2021 9:53 AM CST [facility] PROGRESS NOTE SUBJECTIVE Mr. Campbell remained stable overnight and required a low dose of home trazodone for sleep. Tolerated diet and is up and ambulating the halls this morning. Appears to be improving clinically with adequatepain and nausea control. I have reviewed the current medication list. OBJECTIVE VITAL SIGNS Temperature: [36.3 ??C-36.8 ??C] 36.4 ??C Resp Rate: [14-18] 14 Blood Pressure: (107-113)/(71-79) 107/75 SpO2: [96 %-98 %] 97 % Pulse Rate: [77-83] 80 PHYSICAL EXAM General: Alert, interactive, not acutely ill. ENT: Hearing grossly intact. Dentition intact. No oral or pharyngeal erythema or lesions noted. Lungs: Clear to auscultation. No wheezes or crackles. Heart: Regular rate and rhythm. No murmurs appreciated. No lower extremity edema. Abdomen: Soft, flat, bowel sounds normoactive, nontender, nondistended, no palpable masses or organomegaly. Mental: Mood and affect congruent. Alert and oriented. Attention intact. No evidence of disorganizedthinking. 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 DIAGNOSTICS I have personally reviewed the laboratory data and imaging since admission, and in/outs for past 72 hours. ASSESSMENT / PLAN Mr. Campbell is hospitalized on [facility] for evaluation and management of Nausea And Vomiting. He has a history of metastatic pancreatic adenocarcinoma with reassuring imaging and physical exam that does not suggest acute bowel obstruction or biliary stent obstruction. GI Pathogen Panel negative and diarrhea most likely chemotherapy related. #1 Nausea And Vomiting #2 Malignant Neoplasm Of Pancreas (HCC) #3 Pain Cancer Associated #4 Constipation #5 Secondary Malignant Neoplasm Liver (HCC) #6 Neuropathy Peripheral GI symptoms and diarrhea most likely chemotherapy related. Will continue with supportive cares. ?? Continue to advance diet as tolerated ?? Continue imodium ?? Additional IV fluids as needed ?? Pain control with hydromorphone oral??4 mg q.4 hours p.r.n.??with IV dilaudid for severe pain ?? Continue gabapentin for neuropathy with good control. ?? Continue Protonix 40 mg at increased dose to b.i.d. for possible gastritis ?? Continue with his usual dose of Creo Baseline Mobility: BMAT Level 4 (Able to stand and walk) Diet: NPO for possible procedure Tubes/lines: PIV VTE prophylaxis: enoxaparin Code status: Prior Surrogate Decision Maker: Spouse, Disposition: Home possibly tomorrow. ?? Case and plan discussed with Dr. Mistry. ?? Raymond Rodriguez MD IM PGY-1 UCT LINE MANAGER Javan Mistry M.D., Ph.D. - 10/27/2021 7:20 PM CST I saw Mr. Campbell today after he came to the unit. I am in agreement with the note by resident Raymond Rodriguez. Mr.??Adam Campbell??is a 56 y.o.??male??with past history notable for metastatic pancreatic adenocarcinoma with liver metastasis on??clinical trial with irinotecan, 5 FU and onvansertib??since Aug 2021, last chemo was 10/15/21, who??returns??to the ED??with n/v. Patient remains concerned for possible biliary stent obstruction which was expressed on the evening of 10/23/2021, this was not suspectedbased on CT findings are labs, however, there was some??persistent mild peripancreatic inflammatory changes??on CT and he is admitted with concern for possible progression of mild pancreatitis.??Pt comp lained that his GI symptoms have started after beginning the clinical trial. On clinical trial with 5FU/liposomal irinotecan and experimental drug days 1-10. day 10 of onvarsetib held due to abdominal pain/nausea on cycle 4/day 9. ?? #1 Nausea And Vomiting #2 Malignant Neoplasm Of Pancreas (HCC) #3 Pain Cancer Associated #4 Diarreha Chemo related diarrhea, no significant improvement. Still watery, >6 times a day. Continue IVF and imodium. Nausea helped by ron. Likely discharge planning in 2 days. ?? UCT LINE MANAGER Raymond Rodriguez M.D. - 10/27/2021 10:25 AM CST [facility] PROGRESS NOTE SUBJECTIVE Mr. Campbell had episodes of watery stool and one episode of emesis after attempting to advance diet. Has taken two imodium thus far. Overall feels lethargic and unwell this morning. Agrees to continue toadvance diet as tolerated. I have reviewed the current medication list. OBJECTIVE VITAL SIGNS Temperature: [36.3 ??C-36.7 ??C] 36.3 ??C Resp Rate: [16] 16 Blood Pressure: (107-130)/(76-85) 128/85 SpO2: [97 %-98 %] 98 % Pulse Rate: [73-85] 82 PHYSICAL EXAM General: Alert, interactive, not acutely ill. ENT: Hearing grossly intact. Dentition intact. No oral or pharyngeal erythema or lesions noted. Lungs: Clear to auscultation. No wheezes or crackles. Heart: Regular rate and rhythm. No murmurs appreciated. No lower extremity edema. Abdomen: Soft, flat, bowel sounds normoactive, nontender, nondistended, no palpable masses or organomegaly. Mental: Mood and affect congruent. Alert and oriented. Attention intact. No evidence of disorganizedthinking. 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 DIAGNOSTICS I have personally reviewed the laboratory data and imaging since admission, and in/outs for past 72 hours. ASSESSMENT / PLAN Mr. Campbell is hospitalized on [facility] for evaluation and management of Nausea And Vomiting. He has a history of metastatic pancreatic adenocarcinoma with reassuring imaging and physical exam that does not suggest acute bowel obstruction or biliary stent obstruction. Now having bowel movements and passing gas. Will continue to advance diet as tolerated today. #1 Nausea And Vomiting #2 Malignant Neoplasm Of Pancreas (HCC) #3 Pain Cancer Associated #4 Constipation #5 Secondary Malignant Neoplasm Liver (HCC) #6 Neuropathy Peripheral Etiology of his abdominal pain remains unclear but overall it does not appear that there is any stent or abdominal obstruction. CT scan notes increased progression of possible early pancreatitis and gastritis. It is possible that he could have some early mild pancreatitis just based on imaging. Diarrhea and GI sx most likely 2/2 chemo. Now passing gas and continues to have bowel movements. C diff ruled out. ?? Continue to advance diet as tolerated ?? Increase imodium as needed ?? Additional IV fluids this AM with 1 L LR bolus now, antiemetics with PRN zofran ?? Pain control with hydromorphone oral??2 mg q.4 hours p.r.n.??with IV dilaudid for severe pain ?? Continue gabapentin for neuropathy. ?? Continue Protonix 40 mg at increased dose to b.i.d. for possible gastritis ?? Continue with his usual dose of Creo Baseline Mobility: BMAT Level 4 (Able to stand and walk) Diet: NPO for possible procedure Tubes/lines: PIV VTE prophylaxis: enoxaparin Code status: Prior Surrogate Decision Maker: Spouse, Disposition: Home ?? Case and plan discussed with Dr. Mistry. ?? Raymond Rodriguez MD IM PGY-1 UCT LINE MANAGER Javan Mistry M.D., Ph.D. - 10/26/2021 7:59 PM CST I saw Mr. Campbell today after he came to the unit. I am in agreement with the note by resident Raymond Rodriguez. ??Adam Campbell??is a 56 y.o.??male??with past history notable for metastatic pancreatic adenocarcinoma with liver metastasis on??clinical trial with irinotecan, 5 FU and onvansertib??since Aug 2021, last chemo was 10/15/21, who??returns??to the ED??with n/v. Patient remains concerned for possible biliary stent obstruction which was expressed on the evening of 10/23/2021, this was not suspectedbased on CT findings are labs, however, there was some??persistent mild peripancreatic inflammatory changes??on CT and he is admitted with concern for possible progression of mild pancreatitis.??Pt comp lained that his GI symptoms have started after beginning the clinical trial. On clinical trial with 5FU/liposomal irinotecan and experimental drug days 1-10. day 10 of onvarsetib held due to abdominal pain/nausea on cycle 4/day 9. ?? #1 Nausea And Vomiting #2 Malignant Neoplasm Of Pancreas (HCC) #3 Pain Cancer Associated #4 Diarreha Etiology of his abdominal pain remains unclear but overall it does not appear that there is any stent or abdominal obstruction. CT scan notes increased progression of possible early pancreatitis and gastritis. Unclear if his symptoms related to onvarsetib. His diarrhea could be related to recent chemo. Negative for C-diff. Continue IVF. Pt started clear liquid diet today. Nausea is better controlled. Continue with his usual dose of Creon. Likely discharge planning in 2 days. ?? UCT LINE MANAGER Raymond Rodriguez M.D. - 10/26/2021 9:26 AM CST [facility] PROGRESS NOTE SUBJECTIVE Mr. Campbell had no acute events overnight. Had watery bowel movement overnight and is now passing gas.Communicates that he is not sure if he would like to continue the investigational trial. We talk about how this should be discussed with his primary oncologist in the outpatient setting. States he is hoping for one more summer to spend with his loved ones. Agrees with slowly advancing diet and is not experiencing any new abdominal pain or distension. I have reviewed the current medication list. OBJECTIVE VITAL SIGNS Temperature: [36.3 ??C-36.8 ??C] 36.5 ??C Heart Rate: [79] 79 Resp Rate: [16] 16 Blood Pressure: (101-114)/(54-82) 101/54 SpO2: [95 %-98 %] 97 % Height: [167.6 cm] 167.6 cm Weight: [76.9 kg] 76.9 kg BSA (Calculated - sq m): [1.89 sq meters] 1.89 sq meters BMI (Calculated): [27.4 kg/m??] 27.4 kg/m?? Pulse Rate: [79-89] 79 PHYSICAL EXAM General: Alert, interactive, not acutely ill. ENT: Hearing grossly intact. Dentition intact. No oral or pharyngeal erythema or lesions noted. Lungs: Clear to auscultation. No wheezes or crackles. Heart: Regular rate and rhythm. No murmurs appreciated. No lower extremity edema. Abdomen: Soft, flat, bowel sounds normoactive, nontender, nondistended, no palpable masses or organomegaly. Mental: Mood and affect congruent. Alert and oriented. Attention intact. No evidence of disorganizedthinking. 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 DIAGNOSTICS I have personally reviewed the laboratory data and imaging since admission, and in/outs for past 72 hours. ASSESSMENT / PLAN Mr. Campbell is hospitalized on [facility] for evaluation and management of Nausea And Vomiting. He has a history of metastatic pancreatic adenocarcinoma with reassuring imaging and physical exam that does not suggest acute bowel obstruction or biliary stent obstruction. Now having bowel movements and passing gas. Will attempt to advance diet as tolerated today. #1 Nausea And Vomiting #2 Malignant Neoplasm Of Pancreas (HCC) #3 Pain Cancer Associated #4 Constipation #5 Secondary Malignant Neoplasm Liver (HCC) #6 Neuropathy Peripheral Etiology of his abdominal pain remains unclear but overall it does not appear that there is any stent or abdominal obstruction. CT scan notes increased progression of possible early pancreatitis and gastritis. It is possible that he could have some early mild pancreatitis just based on imaging. Additionally, gastritis or discomfort from prior stents could be contributing. Investigational treatment currently held. No objective evidence for cholangitis and with normal LFTs on labs with reassuring physical exam with no RUQ tenderness. Now passing gas and continues to have bowel movements. Rule out C diff with studies pending. ?? Take off NPO and advance diet as tolerated ?? Additional IV fluids this AM with 1 L LR bolus now, antiemetics with PRN zofran ?? PRN Stool softeners available ?? Pain control with hydromorphone oral??2 mg q.4 hours p.r.n.??with IV dilaudid for severe pain ?? Continue gabapentin for neuropathy. ?? Resume Protonix 40 mg at increased dose to b.i.d. for possible gastritis ?? Continue with his usual dose of Creon ?? No need for GI consultation at this time, stents appear patent ?? C diff PCR pending given watery diarrhea this afternoon ?? Consider imodium once C diff is definitively ruled out Baseline Mobility: BMAT Level 4 (Able to stand and walk) Diet: NPO for possible procedure Tubes/lines: PIV VTE prophylaxis: enoxaparin Code status: Prior Surrogate Decision Maker: Spouse, Disposition: Home ?? Case and plan discussed with Dr. Mistry. ?? Raymond Rodriguez MD IM PGY-1 Rachel Rivera, Pharm.D., R.Ph. - 10/26/2021 7:30 AM CST Pharmacist Progress Note SUBJECTIVE 56 y.o. male with metastatic pancreatic adenocarcinoma admitted for N/V. PMH: cancer associated pain, peripheral neuropathy OBJECTIVE Home medications: resumed appropriately VTE prophylaxis: enoxaparin GI prophylaxis: pantoprazole #Pancreatic cancer (dx Jul 2020) - mets to liver - s/p ERCP w/ stent placement Jul 2020 - Oct 2020: gemcitabine/Abraxane x1 cycle - January-February 2021: XRT + gemcitabine - Aug 2021-current: research protocol [facility] [id number] (onvansertib days 1-10, fluorouracil, leucovorin,nanoliposomal irinotecan) C4D1 = 10/15/21 ASSESSMENT / PLAN 1. Abdominal pain ??? CT scan negative for bowel obstruction but shows possible early pancreatitis and gastritis ??? C4D10 onvansertib held on 10/24 due to abdominal pain and nausea ??? Zofran prn ??? Pantoprazole BID ??? Hydromorphone IV/PO prn ??? Bowel regimen ordered but patient not taking due to diarrhea Changes to medications anticipated at discharge: TBD Rachel Coreas, PharmRiazD., R.Ph., BCOP Javan Draper M.D., Ph.D. - 10/25/2021 8:30 PM CST I saw Mr. Campbell today after he came to the unit. I am in agreement with the note by resident Raymond Rodriguez. ??Adam Campbell??is a 56 y.o.??male??with past history notable for metastatic pancreatic adenocarcinoma with liver metastasis on??clinical trial with irinotecan, 5 FU and onvansertib??since Aug 2021, last chemo was 10/15/21, who??returns??to the ED??with n/v. Patient remains concerned for possible biliary stent obstruction which was expressed on the evening of 10/23/2021, this was not suspectedbased on CT findings are labs, however, there was some??persistent mild peripancreatic inflammatory changes??on CT and he is admitted with concern for possible progression of mild pancreatitis.??Pt comp lained that his GI symptoms have started after beginning the clinical trial. On clinical trial with 5FU/liposomal irinotecan and experimental drug days 1-10. day 10 of onvarsetib held due to abdominal pain/nausea on cycle 4/day 9. ?? #1 Nausea And Vomiting #2 Malignant Neoplasm Of Pancreas (HCC) #3 Pain Cancer Associated #4 Diarreha Etiology of his abdominal pain remains unclear but overall it does not appear that there is any stent or abdominal obstruction. CT scan notes increased progression of possible early pancreatitis and gastritis. Unclear if his symptoms related to onvarsetib. His diarrhea could be related to recent chemo such as 5FU. We will send stool sample to rule out C-diff. Continue IVF. NPO for now. Continue with his usual dose of Creon. Likely discharge planning in 2 days. ?? UCT LINE MANAGER Marcelina Estrella RDN, LD - 10/25/2021 3:18 PM CST Clinical Nutrition: Initial Assessment Clinical Nutrition was requested to evaluate patient for positive nursing baseline nutrition screen with a MST score of 2 or greater SUBJECTIVE Mr. Campbell is a 56 y.o. male admitted for nausea, vomiting, PMH of metastatic pancreatic ca, with liver mets. Nutrition history: Pt reports improved appetite with weight gain over past year. Per EMR, weight history is variable. Pt reports usual good appetite however less with current nausea and vomiting symptoms. He did have an oral nutrition supplement that he liked yesterday and is willing to have this again when his diet is advanced. OBJECTIVE Current nutrition orders: Current Diet No oral nutrition, no tube feeding starting at 10/25 1213 Anthropometrics: Height: 167.6 cm Admission Weight: 76.9 kg (10/25/2021) [place] Body Weight (Calculated) : 63.6 kg BMI (Calculated): 27.4 kg/m?? Weight Change History: weight history varies, but overall 3 kg weight gain over past year. Pt feels improved nutritionally. Estimated Needs: Total Calorie Needs: 1900 calories/day Method to Estimate Energy Needs: [place] (Basal + 20%) Weight Used for Equation Calculations: 76 kg Total Protein Needs: 76 - 91 grams/day (Method to Estimate Protein Needs (g/kg): 1 - 1.2 gm/kg) Weight Used to Calculate Protein Needs (Kg): 76 kg Nutrition Diagnosis: Inadequate oral intake related to nausea, vomiting, need for NPO status as evidenced by pt reports decreased intake in last several days. Malnutrition Criteria: Average estimated Intake: No Change Weight Loss: No Change Body Fat: Normal Muscle Mass: Normal Nutritional Status: Well Nourished ASSESSMENT / PLAN Patient meets ASPEN/AND criteria for Well Nourished (10/25/2021 3:16 PM) See Nutrition Focused Physical Findings section for details. Nutrition Intervention: Interventions: Increase nutrient intake with small, frequent meals and/or snacks, Medical food supplement. Recommendations: ??? No changes at this time; continue current nutrition orders Monitoring/Evaluation: Nutrition parameter to monitor: Meals/Supplement Intake, Diet Progression/NPO Status Desired Outcome: Patient to increase calorie and protein intake. Patient Goal(s): 1. Tolerate diet advancement, one oral nutrition supplement daily. For questions about patient's nutritional care please contact pager [phone] on weekdays or [phone] on weekends/holidays. UCT LINE MANAGER documented in this encounter H&P Notes Raymond Rodriguez M.D. - 10/25/2021 12:00 PM CST Images from the original note were not included. [facility]mission Note SUBJECTIVE CHIEF COMPLAINT Nausea and vomiting HISTORY OF PRESENT ILLNESS Mr. Campbell is a 56 yo M with PMHx notable for metastatic pancreatic adenocarcinoma with known liver metastasis complicated by several episodes of acute cholangitis (last 03/2021), biliary strictures s/p stenting and exchange last (03/2021), and pancreatitis following ERCP, had been taking part of a clinic al trial with irinotecan, 5-FU and onvansertib since Aug 2021 (last chemotherapy on 10/15/21) who presents to the ED with abdominal pain, nausea/vomiting, and trouble passing gas. Day 10 of onvarsetib was held due to abdominal pain and nausea on cycle 4 day 9. Patient was discharged home on 10/25/2021 after an overnight admission for symptomatic management of ongoing pain and nausea. He states that he had been feeling better but not back to his baseline. Thismorning, patient awoke around 0400 with severe midline and left lower quadrant abdominal pain. He proceeded to have one episode of emesis which temporarily resolved his abdominal pain. Since that time,he has had intermittent episodes of nonbloody emesis with increasing abdominal pain along the midline. He has been unable to pass gas or pass a bowel movement. He did take 2 mg hydromorphone at 0500 without significant improvement. He thinks that he should have remained in the hospital instead of returning home yesterday. ED workup remarkable for abdominal tenderness and dry mucous membranes on exam. CT abdomen pelvis showed no evidence of bowel obstruction and no changes in pancreatic neoplasm with ongoing changes of pancreatitis. There was also no change in hepatic metastases. There was a biliary stent in the distal common bile duct which extended to th duodenum which is unchanged. No significant biliary dilation was noted. Lipase low at 4, AST and ALT WNL, Alk Phos 145 with a normal lactate and both direct and indirect bilirubin are normal. WBCs 2.1 and Hgb is 11.8. When meeting the patient on the floor he appears comfortable and reiterates that he has not been able to pass gas. He has also had episodes of emesis where he threw up everything I ate yesterday. He had Acevedo's soup, bland crackers, and a small amount of milk the previous night. Does state he is mildly lactose intolerant and was surprised he was not passing gas. Last bowel movement was on 10/23 however the patient ended up having a large volume watery diarrhea on the afternoon of 10/25/2021. Feels that his current symptoms are similar to how he felt when having prior biliary stent obstructions. Denies fever, changes in mental status, chills, or distension of his abdomen. Had taken his q4 PRN pain medication and appeared to tolerate dinner however woke up at 4 AM and had an episode of emesis and feels plugged. States that in the past they cleaned my tube out and the last time this occurredwas 6 to 8 months ago. Currently denies abdominal pain and reiterates that he is not passing gas. Past Medical History: Diagnosis Date ??? Adjustment Disorder Mixed Reaction ??? Bacteremia 08/15/2020 ??? Carpal Tunnel Syndrome Right ??? Diarrhea ??? Dysfunction Erectile 08/18/2020 ??? Gastroesophageal Reflux Disease NOS 10/31/2012 ??? Headache Unspecified ??? Malignant Neoplasm Of Pancreas (HCC) 07/30/2020 ??? Murmur Heart 11/28/2010 Echocardiogram done on 03/20/2008. ??? Pancreatitis Post Endoscopic Retrograde Cholangiopancreatography (HCC) 07/30/2020 ??? Portal Vein Thrombosis 08/18/2020 ??? Stone Kidney 2014 ??? Varicocele left, treated with embolization of gonadal vein , Past Surgical History: Procedure Laterality Date ??? BREAST CYST EXCISION Right ??? CARPAL TUNNEL RELEASE ??? CIRCUMCISION N/A Circumcision ??? IR GONADAL VEIN EMBOLIZATION Left ??? TONSILLECTOMY AND ADENOIDECTOMY N/A Tonsillectomy and adenoidectomy ??? TRIGGER FINGER RELEASE ??? VASECTOMY N/A Vasectomy ??? VASECTOMY 1991 , Family History Problem Relation Age of Onset ??? Lung cancer Maternal Grandmother ??? Alcohol abuse Mother , Social History Socioeconomic History ??? Marital status: Spouse name: Shaniqua ??? Number of children: 2 ??? Highest education level: 12th grade Occupational History ??? 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 Smoking status: Never Smoker ??? Smokeless tobacco: Never Used Vaping Use ??? Vaping Use: never used Substance and Sexual Activity ??? Alcohol use: Never ??? Drug use: Never ??? Sexual activity: Not Currently Partners: Female control/protection: Vasectomy Social Determinants of Health Financial Resource Strain: Low Risk ??? Difficulty of Paying Living Expenses: Not very hard Food Insecurity: No Food Insecurity ??? Worried About Running Out of Food in the Last Year: Never true ??? Ran Out of Food in the Last Year: Never true Transportation Needs: No Transportation Needs ??? Lack of Transportation (Medical): No ??? Lack of Transportation (Non-Medical): No Physical Activity: Inactive ??? Days of Exercise per Week: 0 days ??? Minutes of Exercise per Session: 0 min Stress: Stress Concern Present ??? Feeling of Stress : To some extent Social Connections: Socially Isolated ??? Frequency of Communication with Friends and Family: Once a week ??? Frequency of Social Gatherings with Friends and Family: Never ??? Attends Druze Services: Never ??? Active Member of Clubs or Organizations: No ??? Attends Club or Organization Meetings: Never ??? Marital Status: Housing Stability: Low Risk ??? Unable to Pay for Housing in the Last Year: No ??? Number of Places Lived in the Last Year: 1 ??? Unstable Housing in the Last Year: No and Allergies Allergen Reactions ??? Compazine [Prochlorperazine] GI intolerance ??? Ranitidine Hcl Diarrhea Current Outpatient Medications on File Prior to Encounter: ??? acetaminophen (TYLENOL) 500 mg tablet, Take 2 tablets (1,000 mg total) by mouth 3 (three) times a day. ??? gabapentin (NEURONTIN) 300 mg capsule, TAKE 2 CAPSULES(600 MG) BY MOUTH AT BEDTIME ??? heparin 100 unit/mL syringe, 5 mL (500 Units total) by intra-catheter route once as needed for line care for up to 1 dose. Flush IV line AFTER 0.9% Sodium Chloride flush ??? heparin 100 unit/mL syringe, 5 mL (500 Units total) by intra-catheter route once as needed for line care for up to 1 dose. Flush IV line AFTER 0.9% Sodium Chloride flush ??? HYDROmorphone (DILAUDID) 4 mg tablet, Take 0.5-1 tablets (2-4 mg total) by mouth every 6 (six) hours as needed for pain Indication: Chronic Pain/Nonacute Pain. ??? lidocaine (LMX) 4 % cream, Apply 1 application topically 3 (three) times a day as needed for pain. May try over the counter lidocaine cream for back pain ??? swjlmh-xxgqzxke-xsbcpmd (Creon) 24,000-76,000-120,[address] capsule, Take 2 capsules by mouth as directed. 2 capsules with meals and 1-2 capsules with snacks. ??? loperamide (IMODIUM A-D) 2 mg capsule, Take 1 capsule (2 mg total) by mouth 4 (four) times a dayas needed for diarrhea. ??? medical cannabis capsule, Take by mouth. THC component: CBD component: ??? ondansetron (ZOFRAN) 8 mg tablet, Take 1 tablet (8 mg total) by mouth every 8 (eight) hours as needed for nausea or vomiting. ??? pantoprazole (PROTONIX) 40 mg EC tablet, Take 1 tablet (40 mg total) by mouth every morning before breakfast. Take twice daily before breakfast and before dinner 10/24-10/31, then continue once dailybefore breakfast. ??? polyethylene glycol (MIRALAX) 17 gram powder packet, Take 1 packet (17 g total) by mouth 2 (two)times a day. Dissolve each 17 g dose in 240 mLs (8 ounces) of beverage. ??? Research IRB [id number] onvansertib (PCM-075) 20 mg capsule, Take 1 capsule (20 mg total) by mouth daily for 10 doses. Take on Days 1 through 10 of each 14 day course. Drug should be taken with a large glass of plain water without ice. Refrain from eating for 30 minutes following administration of Onvansertib. A light breakfast can be served between 30 minutes and 3 hours after drug intake. ??? Research IRB [id number] onvansertib (PCM-075) 5 mg capsule, Take 1 capsule (5 mg total) by mouth daily for 10 doses. Take on Days 1 through 10 of each 14 day course. Drug should be taken with a large glass of plain water without ice. Refrain from eating for 30 minutes following administration of Onvansertib. A light breakfast can be served between 30 minutes and 3 hours after drug intake. ??? sennosides-docusate sodium (SENOKOT-S) 8.6-50 mg per tablet, Take 3 tablets by mouth 2 (two) times a day. ??? traZODone (DESYREL) 50 mg tablet, Take 1-2 tablets (50-100 mg total) by [...] increase to 100 mg daily at bedtime.) REVIEW OF SYSTEMS Pertinent items are noted in HPI; all other review of systems was negative. OBJECTIVE VITAL SIGNS Temperature: [36.8 ??C] 36.8 ??C Resp Rate: [16-20] 16 Blood Pressure: (107-123)/(76-82) 113/82 SpO2: [95 %-97 %] 95 % Pulse Rate: [82-110] 82 PHYSICAL EXAM General: Alert, interactive, not acutely ill. Skin: No rashes or lesions. Eyes: Pupils equal and round. Sclera anicteric. ENT: Hearing grossly intact. Dentition intact. No oral or pharyngeal erythema or lesions noted. Lymph: No cervical or subclavicular adenopathy. Lungs: Clear to auscultation. No wheezes or crackles. Heart: Regular rate and rhythm. No murmurs appreciated. No lower extremity edema. Abdomen: Soft, non-distended, non-tender in all four quadrants, no rebound tenderness, no guarding, hypoactive bowel sounds Neuro: Cranial nerves II-XII intact. Strength 5/5 in all extremities. Mental: Mood and affect congruent. Alert and oriented. Attention intact. No evidence of disorganizedthinking. 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 DIAGNOSTICS I have reviewed the diagnostics from admission. Prior CT showing occlusion of his biliary stent December of 2020 Imaging from today shows no evidence of stent occlusion. Possibly a small piece of occlusion but overall appears widely patent. ASSESSMENT / PLAN Mr. Adam Campbell is a 56 y.o. male with past history notable for metastatic pancreatic adenocarcinoma with liver metastasis and had been part of a clinical trial with irinotecan, 5 FU and onvansertib since Aug 2021, last chemo was 10/15/21, and day 10 of onvarsetib held on cycle 4 day 9 for abdominal pain and nausea who returns to the ED with n/v. Patient remains concerned for possible biliary stent obstruction which was expressed on the evening of 10/23/2021, this was not suspected based on CT findings are labs, however, there was some persistent mild peripancreatic inflammatory changes on CT and he is admitted with concern for possible progression of mild pancreatitis. Currently unclear if sx are related to onvarsetib however this has been on hold as above. #1 Nausea And Vomiting #2 Malignant Neoplasm Of Pancreas (HCC) #3 Pain Cancer Associated #4 Constipation #5 Secondary Malignant Neoplasm Liver (HCC) #6 Neuropathy Peripheral Etiology of his abdominal pain remains unclear but overall it does not appear that there is any stent or abdominal obstruction. CT scan notes increased progression of possible early pancreatitis and gastritis. It is possible that he could have some early mild pancreatitis just based on imaging. Additionally, gastritis or discomfort from prior stents is possible. Investigational treatment currently held. No objective evidence for cholangitis and with normal LFTs on labs with reassuring physical exam with no RUQ tenderness. ?? Will give clear liquids as tolerated ?? Additional IV fluids -- 1 L LR bolus now, antiemetics with PRN zofran ?? Stool softeners for constipation - continue senokot-s 3 tabs BID ?? Pain control with hydromorphone oral 2 mg q.4 hours p.r.n. with IV dilaudid for severe pain ?? Continue gabapentin for neuropathy. ?? Resume Protonix 40 mg at increased dose to b.i.d. for possible gastritis ?? Continue with his usual dose of Creon ?? No need for GI consultation at this time, stents appear patent ?? C diff PCR pending given watery diarrhea this afternoon ?? Consider imodium once C diff is definitively ruled out Baseline Mobility: BMAT Level 4 (Able to stand and walk) Diet: NPO for possible procedure Tubes/lines: PIV VTE prophylaxis: enoxaparin Code status: Prior Surrogate Decision Maker: Spouse, Disposition: Home Case and plan discussed with Dr. Mistry. Raymond Rodriguez MD IM PGY-1 UCT LINE MANAGER Associated attestation - Javan Mistry M.D., Ph.D. - 10/26/2021 2:35 PM PRODUCT LINE MANAGER I saw and evaluated the patient, participating in the patel portions of the service. I reviewed the resident/fellow???s note. I agree with the resident/fellow???s findings and plan. documented in this encounter ED Notes Trell Rodriguez M.D., M.S. - 10/25/2021 7:29 AM CST SUBJECTIVE CHIEF COMPLAINT/REASON FOR VISIT Vomiting HISTORY OF PRESENT ILLNESS 56-year-old male with metastatic pancreatic adenocarcinoma with liver metastasis complicated by several episodes of acute cholangitis (last 03/2021), biliary strictures s/p stenting and exchange (03/2021), pancreatitis following ERCP presents to the Emergency Department for evaluation with vomiting. Patient is currently on a chemotherapy clinical trial with irinotecan, 5-FU and onvansertib with his most recent treatment on 10/15/21. Patient was discharged home yesterday after an overnight admission for symptomatic management of ongoing pain and nausea. He states that he had been feeling better but not back to his baseline. This morning, patient awoke around 0400 with severe midline and left lower quadrant abdominal pain. He proceeded to have one episode of emesis which temporarily resolved his abdominal pain. Since that time, hehas had intermittent episodes of nonbloody emesis with increasing abdominal pain along the midline. He has been unable to pass gas or pass a bowel movement. He did take 2 mg hydromorphone at 0500 without significant improvement. Here in the ED, patient states I'm blocked, man. I'm blocked. A pipe is blocked... I can't squeeze out a fart. He thinks that he should have remained in the hospital instead of returning home yesterday. History provided by: Patient and medical records REVIEW OF SYSTEMS Constitutional: Negative for chills and fever. HENT: Negative for congestion, rhinorrhea and sore throat. Eyes: Negative for visual disturbance. Respiratory: Negative for cough and shortness of breath. Cardiovascular: Negative for chest pain. Gastrointestinal: Positive for abdominal pain, nausea and vomiting. Negative for constipation, diarrhea and hematemesis. Genitourinary: Negative for dysuria. Musculoskeletal: Negative for extremity pain. Neurological: Negative for weakness and headaches. Hematological: Does not bruise/bleed easily. OBJECTIVE Initial Vitals [10/25/21 0714] Temperature Pulse Rate Heart Rate Resp Rate Blood Pressure SpO2 36.8 ??C 110 -- 20 114/80 97 % Pain Score 6 PHYSICAL EXAMINATION Constitutional: Nursing note and vitals reviewed. Appears uncomfortable and unwell. HENT: Head: Atraumatic. Mouth/Throat: Mucous membranes are dry. Eyes: Conjunctivae and EOM are normal. Neck: Neck supple. Cardiovascular: Normal rate and regular rhythm. Pulmonary/Chest: No respiratory distress. Breathing comfortably on room air. Abdominal: Soft. exhibits no distension. There is abdominal tenderness. There is no rebound and no guarding. Pain is greatest along the midline without any peritoneal signs. Musculoskeletal: General: No deformity. Cervical back: Normal range of motion and neck supple. Neurological: Alert and oriented to person, place, and time. Skin: Skin is warm and normal color. He is not diaphoretic. Psychiatric: He has a normal mood and affect. ASSESSMENT/PLAN IMPRESSION AND PLAN 56-year-old male with metastatic pancreatici adenocarcinoma who was discharged home from the hospital yesterday endorses increasing abdominal pain, nausea, and vomiting. He presents to the Emergency Department and is actively retching. He is hemodynamically stable but appears uncomfortable. Differential diagnosis includes, but is not limited to bowel obstruction, stent obstruction, gastritis, worsening metastatic disease, among other intraabdominal processes. He will be provided Zofran, dilaudid, and IV fluids for symptomatic management. We will obtain labs BMP, CBC with differential, LFT, lipase, lactate, and magnesium. We will also obtain a CT abdomen pelvis for evaluation of intraabdominal processes. Disposition pending workup and ED course. However, I anticipate he will be admitted due to hisongoing complaints and recent admission. Addendum: His CT is generally reassuring against stent migration. He continues to have disproportionate elevation in serum alkaline phosphatase compared with serum aminotransferases. He feels his symptoms are worse than when he was admitted recently, and now feels this is consistent with prior stent obstruction. We will give IV fluids, IV pain medications, keep him NPO, and admit him back to the hospital for further care. Final Diagnoses: as of 10/25/21 1000 Nausea And Vomiting Abdominal Pain Malignant Neoplasm Of Other Parts Of Pancreas (HCC) I personally performed the services described in this documentation, as scribed in my presence, and it is both accurate and complete. Trell Rodriguez M.D., M.S. 10/25/21 1002 UCT LINE MANAGER documented in this encounter Miscellaneous Notes Hospital Course - Raymond Rodriguez M.D. - 10/26/2021 10:02 AM CST Mr. Campbell is a 56 yo M with PMHx notable for metastatic pancreatic adenocarcinoma with known liver metastasis complicated by several episodes of acute cholangitis (last 03/2021), biliary strictures s/p stenting and exchange last (03/2021), and pancreatitis following ERCP, had been taking part of a clinic al trial with irinotecan, 5-FU and onvansertib since Aug 2021 (last chemotherapy on 10/15/21) who presents to the ED with abdominal pain, nausea/vomiting, and trouble passing gas. Day 10 of onvarsetib was held due to abdominal pain and nausea on cycle 4 day 9. Patient was discharged home on 10/25/2021 after an overnight admission for symptomatic management of ongoing pain and nausea. He states that he had been feeling better but not back to his baseline. Woke up at 4 AM on 10/25/2021 with abdominal painand had an episode of emesis. ED workup had a CT abdomen pelvis showed no evidence of bowel obstruction and no changes in pancreatic neoplasm with ongoing changes of pancreatitis. There was also no change in hepatic metastases. There was a biliary stent in the distal common bile duct which extended to th duodenum which is unchanged and showed no evidence of obstruction.. No significant biliary dilation was noted. Lipase low at 4,AST and ALT WNL, Alk Phos 145 with a normal lactate and both direct and indirect bilirubin are normal. WBCs 2.1 and Hgb is 11.8. Images from prior confirmed biliary stent obstruction studied for comparison and are included in the HPI. He remained stable and started to have watery bowel movements with a negative stool pathogen panel. We advanced his diet as tolerated and controlled his symptoms with supportive care. He was reassured that there was no evidence of any acute emergent process that required urgent intervention and that his biliary stents were clear on CT scan. Images were shown to the patient at bedside. The nausea/vomiting and diarrhea most likely was chemotherapy related. He was discharged in stable condition on 10/29/2021. UCT LINE MANAGER documented in this encounter Plan of Treatment Upcoming Encounters Date Type Specialty Care Team Description 06/22/2022 Lab Laboratory [facility] RN, C.N.P., M.S. [address] [place] [address] [phone] (Wo rk) 06/22/2022 Infusion Oncology [facility] APRN, C.N .P., M.S. [address] [place] [address] [phone] (Wo rk) 06/29/2022 Lab Laboratory Medicine Maria Del Rosario Gomez AP RN, C.N.P., M.S. [address] [place] [address] [phone] (Wo rk) 06/29/2022 Infusion Oncology Maria Del Rosario Gomez APRN, Remy.N .P., M.S. [address] [place] [address] [phone] (Wo rk) documented as of this encounter Procedures Procedure Name Priority Date/Time Associated Comments Diagnosis CBC WITH Routine 10/29/2021 6:17 Results for DIFFERENTIAL, B AM PRODUCT LINE MANAGER this procedu re are in the results section. PHOSPHORUS Routine 10/29/2021 6:17 Results for (INORGANIC), S AM PRODUCT LINE MANAGER this procedur e are in the results section. MAGNESIUM, S Routine 10/29/2021 6:17 Results for AM PRODUCT LINE MANAGER this procedure are in the results section. BASIC METABOLIC Routine 10/29/2021 6:17 Results f or PANEL, S/P AM PRODUCT LINE MANAGER this procedure are in the results section. CBC WITH Routine 10/28/2021 6:28 Results for DIFFERENTIAL, B AM PRODUCT LINE MANAGER this procedu re are in the results section. PHOSPHORUS Routine 10/28/2021 6:28 Results for (INORGANIC), S AM PRODUCT LINE MANAGER this procedur e are in the results section. MAGNESIUM, S Routine 10/28/2021 6:28 Results for AM PRODUCT LINE MANAGER this procedure are in the results section. BASIC METABOLIC Routine 10/28/2021 6:28 Results f or PANEL, S/P AM PRODUCT LINE MANAGER this procedure are in the results section. GI PATHOGEN PANEL, Routine 10/27/2021 3:59 Result s for PCR, F PM PRODUCT LINE MANAGER this procedure are in the results section. PHOSPHORUS Routine 10/27/2021 12:40 Results for (INORGANIC), S PM PRODUCT LINE MANAGER this procedur e are in the results section. MAGNESIUM, S Routine 10/27/2021 12:40 Results for PM PRODUCT LINE MANAGER this procedure are in the results section. CBC WITH Routine 10/27/2021 6:17 Results for DIFFERENTIAL, B AM PRODUCT LINE MANAGER this procedu re are in the results section. BASIC METABOLIC Routine 10/27/2021 6:17 Results f or PANEL, S/P AM PRODUCT LINE MANAGER this procedure are in the results section. CBC WITH Routine 10/26/2021 5:07 Results for DIFFERENTIAL, B AM PRODUCT LINE MANAGER this procedu re are in the results section. BASIC METABOLIC Routine 10/26/2021 5:07 Results f or PANEL, S/P AM PRODUCT LINE MANAGER this procedure are in the results section. C. DIFFICILE TOXIN Routine 10/25/2021 6:45 Result s for PCR, F PM PRODUCT LINE MANAGER this procedure are in the results section. VRE PCR Routine 10/25/2021 2:47 Results for PM PRODUCT LINE MANAGER this procedure are in the results section. CBC WITH Routine 10/25/2021 1:42 Results for DIFFERENTIAL, B PM PRODUCT LINE MANAGER this procedu re are in the results section. PHOSPHORUS Routine 10/25/2021 1:42 Results for (INORGANIC), S PM PRODUCT LINE MANAGER this procedur e are in the results section. MAGNESIUM, S Routine 10/25/2021 1:42 Results for PM PRODUCT LINE MANAGER this procedure are in the results section. COMPREHENSIVE Routine 10/25/2021 1:42 Results for METABOLIC PANEL, S/P PM PRODUCT LINE MANAGER this pr ocedure are in the results section. CT ABDOMEN PELVIS RAD - Semiurgent 10/25/2021 8:22 Res ults for WITH IV CONTRAST (Fast; most ED AM PRODUCT LINE MANAGER this proc edure patients; some are in the inpatients) results section. CT CHEST WITH IV RAD - Semiurgent 10/25/2021 8:22 Resu lts for CONTRAST (Fast; most ED AM PRODUCT LINE MANAGER this procedur e patients; some are in the inpatients) results section. LACTATE, B/P STAT 10/25/2021 7:48 Results for AM PRODUCT LINE MANAGER this procedure are in the results section. HEPATIC FUNCTION STAT 10/25/2021 7:42 Results for PANEL, S AM PRODUCT LINE MANAGER this procedure are in the results section. CBC WITH STAT 10/25/2021 7:42 Results for DIFFERENTIAL, B AM PRODUCT LINE MANAGER this procedu re are in the results section. MAGNESIUM, S STAT 10/25/2021 7:42 Results for AM PRODUCT LINE MANAGER this procedure are in the results section. LIPASE, S/P STAT 10/25/2021 7:42 Results for AM PRODUCT LINE MANAGER this procedure are in the results section. BASIC METABOLIC STAT 10/25/2021 7:42 Results f or PANEL, S/P AM PRODUCT LINE MANAGER this procedure are in the results section. documented in this encounter Results Phosphorus Inorganic (10/29/2021 6:17 AM PRODUCT LINE MANAGER) athologist Signature Phosphorus 2.8 2.5 - 4.5 10/29/2021 DTL (Inorganic), S mg/dL 7:20 AM PRODUCT LINE MANAGER Specimen Anatomical Collection Method Collection Time Receive d Time (Source) Location / / Volume Laterality Blood (Blood, 10/29/2021 6:17 AM 10/29/19 6:58 Venous) PRODUCT LINE MANAGER AM PRODUCT LINE MANAGER Raymond Canales M.D. LAB BLOOD ADD-ON Performing Organization Address City/State/[facility] Code Phon e Number [facility] - [address] Magnesium (10/29/2021 6:17 AM PRODUCT LINE MANAGER) athologist Signature Magnesium, S 2.1 1.7 - 2.3 10/29/2021 DTL mg/dL 7:20 AM PRODUCT LINE MANAGER Specimen Anatomical Collection Method Collection Time Receive d Time (Source) Location / / Volume Laterality Blood (Blood, 10/29/2021 6:17 AM 10/29/19 6:58 Venous) PRODUCT LINE MANAGER AM PRODUCT LINE MANAGER Raymond Canales M.D. LAB BLOOD ADD-ON Performing Organization Address City/[facility] Phon e Number [facility] - [address] [place] [id number] [place] [address] (ABNORMAL) Basic Metabolic Panel (10/29/2021 6:17 AM PRODUCT LINE MANAGER) P athologist Signature Potassium, S 3.5 (L) 3.6 - 5.2 10/29/2021 DTL mmol/L 7:20 AM PRODUCT LINE MANAGER Sodium, S 141 135 - 145 10/29/2021 DTL mmol/L 7:20 AM PRODUCT LINE MANAGER Chloride, S 105 98 - 107 10/29/2021 DTL mmol/L 7:20 AM PRODUCT LINE MANAGER Bicarbonate, S 29 22 - 29 10/29/2021 DTL mmol/L 7:20 AM PRODUCT LINE MANAGER Anion Gap 7 7 - 15 10/29/2021 DTL 7:20 AM PRODUCT LINE MANAGER BUN (Blood Urea 5 (L) 8 - 24 10/29/2021 DTL Nitrogen), S mg/dL 7:20 AM PRODUCT LINE MANAGER Creatinine 0.98 0.74 - 10/29/2021 DTL 1.35 mg/dL 7:20 AM PRODUCT LINE MANAGER eGFR-Non 85 >=60 10/29/2021 DTL Black/ mL/min/BSA 7:20 AM PRODUCT LINE MANAGER [place] Comment: ----ADDITIONAL INFORMATION---- Estimated GFR calculated using the 2009 CKD_EPI creatinine equation. eGFR-Black/ >90 >=60 mL/min/BSA 2021 7:20 AM PRODUCT LINE MANAGER DTL Comment: ----ADDITIONAL INFORMATION---- Estimated GFR calculated using the 2009 CKD_EPI creatinine equation. Calcium, Total, S 8.4 (L) 8.6 - 10.0 mg/dL 10/29/2021 7:20 AM PRODUCT LINE MANAGER DTL Glucose, S 104 70 - 140 mg/dL 10/29/2021 7:20 AM PRODUCT LINE MANAGER D TL Specimen Anatomical Collection Method Collection Time Receive d Time (Source) Location / / Volume Laterality Blood (Blood, 10/29/2021 6:17 AM 10/29/19 6:58 Venous) PRODUCT LINE MANAGER AM PRODUCT LINE MANAGER Raymond Canales M.D. LAB BLOOD ADD-ON Performing Organization Address City/State/ZIP Code Phon e Number [facility] - [address] [place], [place] [address] [facility] [place] [address] Laboratories-[facility] [address] (ABNORMAL) CBC with Differential, Blood (10/29/2021 6:17 AM PRODUCT LINE MANAGER) [facility] gist Method Time Signature Hemoglobin 10.7 (L) 13.2 - 10/29/2021 DTL 16.6 g/dL 7:02 AM PRODUCT LINE MANAGER Hematocrit 30.7 (L) 38.3 - 10/29/2021 DTL 48.6 % 7:02 AM PRODUCT LINE MANAGER Erythrocytes 3.78 (L) 4.35 - 10/29/2021 DTL 5.65 7:02 AM PRODUCT LINE MANAGER x10(12)/L MCV 81.2 78.2 - 10/29/2021 DTL 97.9 fL 7:02 AM PRODUCT LINE MANAGER RBC Distrib Width 15.2 (H) 11.8 - 10/29/2021 DTL 14.5 % 7:02 AM PRODUCT LINE MANAGER Platelet Count 147 135 - 317 10/29/2021 DTL x10(9)/L 7:02 AM PRODUCT LINE MANAGER Leukocytes 1.8 (L) 3.4 - 9.6 10/29/2021 DTL x10(9)/L 7:02 AM PRODUCT LINE MANAGER Neutrophils 1.01 (L) 1.56 - 10/29/2021 DTL 6.45 7:54 AM PRODUCT LINE MANAGER x10(9)/L Comment: Rechecked Lymphocytes 0.39 (L) 0.95 - 3.07 x10(9)/L 10/29/2021 7:54 A M PRODUCT LINE MANAGER DTL Monocytes 0.33 0.26 - 0.81 x10(9)/L 10/29/2021 7:54 AM PRODUCT LINE MANAGER DTL Eosinophils 0.05 0.03 - 0.48 x10(9)/L 10/29/2021 7:54 A M PRODUCT LINE MANAGER DTL Basophils <0.03 0.01 - 0.08 x10(9)/L 10/29/2021 7:54 AM PRODUCT LINE MANAGER DTL Specimen Anatomical Collection Method Collection Time Receive d Time (Source) Location / / Volume Laterality Blood (Blood, 10/29/2021 6:17 AM 10/29/19 6:46 Venous) PRODUCT LINE MANAGER AM PRODUCT LINE MANAGER Raymond Canales M.D. LAB BLOOD ADD-ON Performing Organization Address City/State/ZIP Code Phon e Number [facility] - [address] [place], [place] [address] [facility] [place] [address] [facility] [address] Phosphorus Inorganic (10/28/2021 6:28 AM PRODUCT LINE MANAGER) athologist Signature Phosphorus 2.8 2.5 - 4.5 10/28/2021 DTL (Inorganic), S mg/dL 7:35 AM PRODUCT LINE MANAGER Specimen Anatomical Collection Method Collection Time Receive d Time (Source) Location / / Volume Laterality Blood (Blood, 10/28/2021 6:28 AM 10/28/19 7:16 Venous) PRODUCT LINE MANAGER AM PRODUCT LINE MANAGER Raymond Canales M.D. LAB BLOOD ADD-ON Performing Organization Address City/[facility] Phon e Number [facility] - [id number] [place] [address] Magnesium (10/28/2021 6:28 AM PRODUCT LINE MANAGER) athologist Signature Magnesium, S 1.9 1.7 - 2.3 10/28/2021 DTL mg/dL 7:35 AM PRODUCT LINE MANAGER Specimen Anatomical Collection Method Collection Time Receive d Time (Source) Location / / Volume Laterality Blood (Blood, 10/28/2021 6:28 AM 10/28/19 7:16 Venous) PRODUCT LINE MANAGER AM PRODUCT LINE MANAGER Raymond Canales M.D. LAB BLOOD ADD-ON Performing Organization Address City/[facility] Phon e Number [facility] - [phone] [place] [address] (ABNORMAL) Basic Metabolic Panel (10/28/2021 6:28 AM PRODUCT LINE MANAGER) athologist Signature Potassium, S 3.6 3.6 - 5.2 10/28/2021 DTL mmol/L 7:35 AM PRODUCT LINE MANAGER Sodium, S 137 135 - 145 10/28/2021 DTL mmol/L 7:35 AM PRODUCT LINE MANAGER Chloride, S 102 98 - 107 10/28/2021 DTL mmol/L 7:35 AM PRODUCT LINE MANAGER Bicarbonate, S 23 22 - 29 10/28/2021 DTL mmol/L 7:35 AM PRODUCT LINE MANAGER Anion Gap 12 7 - 15 10/28/2021 DTL 7:35 AM PRODUCT LINE MANAGER BUN (Blood Urea 6 (L) 8 - 24 10/28/2021 DTL Nitrogen), S mg/dL 7:35 AM PRODUCT LINE MANAGER Creatinine 0.89 0.74 - 10/28/2021 DTL 1.35 mg/dL 7:35 AM PRODUCT LINE MANAGER eGFR-Non >90 >=60 10/28/2021 DTL Black/ mL/min/BSA 7:35 AM PRODUCT LINE MANAGER [place] Comment: ----ADDITIONAL INFORMATION---- Estimated GFR calculated using the 2009 CKD_EPI creatinine equation. eGFR-Black/ >90 >=60 mL/min/BSA 2021 7:35 AM PRODUCT LINE MANAGER DTL Comment: ----ADDITIONAL INFORMATION---- Estimated GFR calculated using the 2009 CKD_EPI creatinine equation. Calcium, Total, S 8.5 (L) 8.6 - 10.0 mg/dL 10/28/2021 7:35 AM PRODUCT LINE MANAGER DTL Glucose, S 93 70 - 140 mg/dL 10/28/2021 7:35 AM PRODUCT LINE MANAGER D TL Specimen Anatomical Collection Method Collection Time Receive d Time (Source) Location / / Volume Laterality Blood (Blood, 10/28/2021 6:28 AM 10/28/19 7:16 Venous) PRODUCT LINE MANAGER AM PRODUCT LINE MANAGER Raymond Canales M.D. LAB BLOOD ADD-ON Performing Organization Address City/State/ZIP Code Phon e Number [facility] - [address] [place] [phone] [facility] [place] [address] Laboratories-[facility] [address] [facility] (ABNORMAL) CBC with Differential, Blood (10/28/2021 6:28 AM PRODUCT LINE MANAGER) [facility] Method Time Signature Hemoglobin 12.1 (L) 13.2 - 10/28/2021 DTL 16.6 g/dL 7:05 AM PRODUCT LINE MANAGER Hematocrit 35.3 (L) 38.3 - 10/28/2021 DTL 48.6 % 7:05 AM PRODUCT LINE MANAGER Erythrocytes 4.32 (L) 4.35 - 10/28/2021 DTL 5.65 7:05 AM PRODUCT LINE MANAGER x10(12)/L MCV 81.7 78.2 - 10/28/2021 DTL 97.9 fL 7:05 AM PRODUCT LINE MANAGER RBC Distrib Width 15.2 (H) 11.8 - 10/28/2021 DTL 14.5 % 7:05 AM PRODUCT LINE MANAGER Platelet Count 155 135 - 317 10/28/2021 DTL x10(9)/L 7:05 AM PRODUCT LINE MANAGER Leukocytes 2.2 (L) 3.4 - 9.6 10/28/2021 DTL x10(9)/L 7:05 AM PRODUCT LINE MANAGER Neutrophils 1.27 (L) 1.56 - 10/28/2021 DTL 6.45 7:56 AM PRODUCT LINE MANAGER x10(9)/L Comment: Rechecked Lymphocytes 0.42 (L) 0.95 - 3.07 x10(9)/L 10/28/2021 7:56 A M PRODUCT LINE MANAGER DTL Monocytes 0.45 0.26 - 0.81 x10(9)/L 10/28/2021 7:56 AM PRODUCT LINE MANAGER DTL Eosinophils 0.05 0.03 - 0.48 x10(9)/L 10/28/2021 7:56 A M PRODUCT LINE MANAGER DTL Basophils <0.03 0.01 - 0.08 x10(9)/L 10/28/2021 7:56 AM PRODUCT LINE MANAGER DTL Specimen Anatomical Collection Method Collection Time Receive d Time (Source) Location / / Volume Laterality Blood (Blood, 10/28/2021 6:28 AM 10/28/19 6:51 Venous) PRODUCT LINE MANAGER AM PRODUCT LINE MANAGER Raymond Canales M.D. LAB BLOOD ADD-ON Performing Organization Address City/State/ZIP Code Phon e Number [facility] - [address] [place] [phone] [facility] [place] [address] Laboratories-[facility] 200 [facility] GI Pathogen Panel, PCR, Feces (10/27/2021 3:59 PM PRODUCT LINE MANAGER) [facility] gist Method Time Signature Specimen Source STOOL 10/27/2021 DTL 5:25 PM PRODUCT LINE MANAGER Campylobacter Negative Negative 10/27/2021 DTL species 5:25 PM PRODUCT LINE MANAGER C. difficile toxin Negative Negative 10/27/2021 DTL 5:25 PM PRODUCT LINE MANAGER Plesiomonas Negative Negative 10/27/2021 DTL shigelloides 5:25 PM PRODUCT LINE MANAGER Salmonella species Negative Negative 10/27/2021 DTL 5:25 PM PRODUCT LINE MANAGER Vibrio species Negative Negative 10/27/2021 DTL 5:25 PM PRODUCT LINE MANAGER Vibrio cholerae Negative Negative 10/27/2021 DTL 5:25 PM PRODUCT LINE MANAGER Yersinia species Negative Negative 10/27/2021 DTL 5:25 PM PRODUCT LINE MANAGER Enteroaggregative E. Negative Negative 10/27/2021 DTL coli (EAEC) 5:25 PM PRODUCT LINE MANAGER Enteropathogenic E. Negative Negative 10/27/2021 DTL coli (EPEC) 5:25 PM PRODUCT LINE MANAGER Enterotoxigenic E. Negative Negative 10/27/2021 DTL coli (ETEC) 5:25 PM PRODUCT LINE MANAGER Shiga toxin Negative Negative 10/27/2021 DTL producing E. coli 5:25 PM PRODUCT LINE MANAGER Shigella/Enteroinvas Negative Negative 10/27/2021 DTL lucille E. coli 5:25 PM PRODUCT LINE MANAGER Cryptosporidium Negative Negative 10/27/2021 DTL species 5:25 PM PRODUCT LINE MANAGER Cyclospora Negative Negative 10/27/2021 DTL cayetanensis 5:25 PM PRODUCT LINE MANAGER Entamoeba Negative Negative 10/27/2021 DTL histolytica 5:25 PM PRODUCT LINE MANAGER Giardia Negative Negative 10/27/2021 DTL 5:25 PM PRODUCT LINE MANAGER Adenovirus F40/41 Negative Negative 10/27/2021 DTL 5:25 PM PRODUCT LINE MANAGER Astrovirus Negative Negative 10/27/2021 DTL 5:25 PM PRODUCT LINE MANAGER Norovirus GI/GII Negative Negative 10/27/2021 DTL 5:25 PM PRODUCT LINE MANAGER Rotavirus Ag, F Negative Negative 10/27/2021 DTL 5:25 PM PRODUCT LINE MANAGER Sapovirus Negative Negative 10/27/2021 DTL 5:25 PM PRODUCT LINE MANAGER Comment: ----ADDITIONAL INFORMATION---- This assay is performed using the FDA-cl eared DatalinkArray GI Panel ([employer] Specimen Anatomical Collection Method Collection Time Receive d Time (Source) Location / / Volume Laterality Stool (Stool) 10/27/2021 3:59 PM 10/27/19 4:05 PRODUCT LINE MANAGER PM PRODUCT LINE MANAGER Raymond Canales M.D. LAB MICROBIOLOGY - GENERAL O RDERABLES Performing Organization Address City/State/ZIP Code Phon e Number [facility] - [address] [place], [place] [address] [facility] [place] [place] [address] Laboratories-[facility] [address] Phosphorus Inorganic (10/27/2021 12:40 PM PRODUCT LINE MANAGER) athologist Signature Phosphorus 2.5 2.5 - 4.5 10/27/2021 DTL (Inorganic), S mg/dL 2:05 PM PRODUCT LINE MANAGER Specimen Anatomical Collection Method Collection Time Receive d Time (Source) Location / / Volume Laterality Blood (Blood, 10/27/2021 12:40 10/27/2021 1:47 Venous) PM PRODUCT LINE MANAGER PM PRODUCT LINE MANAGER Raymond Canales M.D. LAB BLOOD ADD-ON Performing Organization Address [facility] Phon e Number [facility] - [address] Magnesium (10/27/2021 12:40 PM PRODUCT LINE MANAGER) athologist Signature Magnesium, S 1.8 1.7 - 2.3 10/27/2021 DTL mg/dL 2:05 PM PRODUCT LINE MANAGER Specimen Anatomical Collection Method Collection Time Receive d Time (Source) Location / / Volume Laterality Blood (Blood, 10/27/2021 12:40 10/27/2021 1:47 Venous) PM PRODUCT LINE MANAGER PM PRODUCT LINE MANAGER Raymond Canales M.D. LAB BLOOD ADD-ON Performing Organization Address City/[facility] Phon e Number [facility] - [address] Basic Metabolic Panel (10/27/2021 6:17 AM PRODUCT LINE MANAGER) athologist Signature Potassium, S 3.7 3.6 - 5.2 10/27/2021 DTL mmol/L 7:24 AM PRODUCT LINE MANAGER Sodium, S 135 135 - 145 10/27/2021 DTL mmol/L 7:24 AM PRODUCT LINE MANAGER Chloride, S 101 98 - 107 10/27/2021 DTL mmol/L 7:24 AM PRODUCT LINE MANAGER Bicarbonate, S 23 22 - 29 10/27/2021 DTL mmol/L 7:24 AM PRODUCT LINE MANAGER Anion Gap 11 7 - 15 10/27/2021 DTL 7:24 AM PRODUCT LINE MANAGER BUN (Blood Urea 9 8 - 24 10/27/2021 DTL Nitrogen), S mg/dL 7:24 AM PRODUCT LINE MANAGER Creatinine 0.96 0.74 - 10/27/2021 DTL 1.35 mg/dL 7:24 AM PRODUCT LINE MANAGER eGFR-Non 87 >=60 10/27/2021 DTL Black/ mL/min/BSA 7:24 AM PRODUCT LINE MANAGER Ukrainian Comment: ----ADDITIONAL INFORMATION---- Estimated GFR calculated using the 2009 CKD_EPI creatinine equation. eGFR-Black/ >90 >=60 mL/min/BSA 2021 7:24 AM PRODUCT LINE MANAGER DTL Comment: ----ADDITIONAL INFORMATION---- Estimated GFR calculated using the 2009 CKD_EPI creatinine equation. Calcium, Total, S 8.7 8.6 - 10.0 mg/dL 10/27/2021 7:24 AM PRODUCT LINE MANAGER DTL Glucose, S 94 70 - 140 mg/dL 10/27/2021 7:24 AM PRODUCT LINE MANAGER D TL Specimen Anatomical Collection Method Collection Time Receive d Time (Source) Location / / Volume Laterality Blood (Blood, 10/27/2021 6:17 AM 10/27/19 7:07 Venous) PRODUCT LINE MANAGER AM PRODUCT LINE MANAGER Raymond Canales M.D. LAB BLOOD ADD-ON Performing Organization Address City/State/ZIP Code Phon e Number [facility] - [address] [place], [place] [address] [facility] [place] [address] Laboratories[facility] [address] [facility] (ABNORMAL) CBC with Differential, Blood (10/27/2021 6:17 AM PRODUCT LINE MANAGER) [facility] gist Method Time Signature Hemoglobin 12.4 (L) 13.2 - 10/27/2021 DTL 16.6 g/dL 6:58 AM PRODUCT LINE MANAGER Hematocrit 37.3 (L) 38.3 - 10/27/2021 DTL 48.6 % 6:58 AM PRODUCT LINE MANAGER Erythrocytes 4.54 4.35 - 10/27/2021 DTL 5.65 6:58 AM PRODUCT LINE MANAGER x10(12)/L MCV 82.2 78.2 - 10/27/2021 DTL 97.9 fL 6:58 AM PRODUCT LINE MANAGER RBC Distrib Width 14.8 (H) 11.8 - 10/27/2021 DTL 14.5 % 6:58 AM PRODUCT LINE MANAGER Platelet Count 173 135 - 317 10/27/2021 DTL x10(9)/L 6:58 AM PRODUCT LINE MANAGER Leukocytes 2.5 (L) 3.4 - 9.6 10/27/2021 DTL x10(9)/L 6:58 AM PRODUCT LINE MANAGER Neutrophils 1.58 1.56 - 10/27/2021 DTL 6.45 6:58 AM PRODUCT LINE MANAGER x10(9)/L Lymphocytes 0.39 (L) 0.95 - 10/27/2021 DTL 3.07 6:58 AM PRODUCT LINE MANAGER x10(9)/L Monocytes 0.45 0.26 - 10/27/2021 DTL 0.81 6:58 AM PRODUCT LINE MANAGER x10(9)/L Eosinophils 0.05 0.03 - 10/27/2021 DTL 0.48 6:58 AM PRODUCT LINE MANAGER x10(9)/L Basophils <0.03 0.01 - 10/27/2021 DTL 0.08 6:58 AM PRODUCT LINE MANAGER x10(9)/L Specimen Anatomical Collection Method Collection Time Receive d Time (Source) Location / / Volume Laterality Blood (Blood, 10/27/2021 6:17 AM 10/27/19 6:48 Venous) PRODUCT LINE MANAGER AM PRODUCT LINE MANAGER Raymond Canales M.D. LAB BLOOD ADD-ON Performing Organization Address City/State/ZIP Code Phon e Number [facility] - [address] [place] [phone] [facility] [place] [address] Laboratories-[facility] [address] [facility] (ABNORMAL) Basic Metabolic Panel (10/26/2021 5:07 AM PRODUCT LINE MANAGER) P athologist Signature Potassium, S 3.4 (L) 3.6 - 5.2 10/26/2021 DTL mmol/L 6:09 AM PRODUCT LINE MANAGER Sodium, S 137 135 - 145 10/26/2021 DTL mmol/L 6:09 AM PRODUCT LINE MANAGER Chloride, S 102 98 - 107 10/26/2021 DTL mmol/L 6:09 AM PRODUCT LINE MANAGER Bicarbonate, S 25 22 - 29 10/26/2021 DTL mmol/L 6:09 AM PRODUCT LINE MANAGER Anion Gap 10 7 - 15 10/26/2021 DTL 6:09 AM PRODUCT LINE MANAGER BUN (Blood Urea 8 8 - 24 10/26/2021 DTL Nitrogen), S mg/dL 6:09 AM PRODUCT LINE MANAGER Creatinine 0.89 0.74 - 10/26/2021 DTL 1.35 mg/dL 6:09 AM PRODUCT LINE MANAGER eGFR-Non >90 >=60 10/26/2021 DTL Black/ mL/min/BSA 6:09 AM PRODUCT LINE MANAGER [place] Comment: ----ADDITIONAL INFORMATION---- Estimated GFR calculated using the 2009 CKD_EPI creatinine equation. eGFR-Black/ >90 >=60 mL/min/BSA 2021 6:09 AM PRODUCT LINE MANAGER DTL Comment: ----ADDITIONAL INFORMATION---- Estimated GFR calculated using the 2009 CKD_EPI creatinine equation. Calcium, Total, S 8.4 (L) 8.6 - 10.0 mg/dL 10/26/2021 6:09 AM PRODUCT LINE MANAGER DTL Glucose, S 84 70 - 140 mg/dL 10/26/2021 6:09 AM PRODUCT LINE MANAGER D TL Specimen Anatomical Collection Method Collection Time Receive d Time (Source) Location / / Volume Laterality Blood (Blood, 10/26/2021 5:07 AM 10/26/19 5:52 Venous) PRODUCT LINE MANAGER AM PRODUCT LINE MANAGER Raymond Canales M.D. LAB BLOOD ADD-ON Performing Organization Address City/State/ZIP Code Phon e Number [facility] - [address] [place], [place] [address] [facility] [place] [place] [address] Laboratories[facility] [address] [facility] (ABNORMAL) CBC with Differential, Blood (10/26/2021 5:07 AM PRODUCT LINE MANAGER) [facility] gist Method Time Signature Hemoglobin 11.0 (L) 13.2 - 10/26/2021 DTL 16.6 g/dL 5:44 AM PRODUCT LINE MANAGER Hematocrit 32.6 (L) 38.3 - 10/26/2021 DTL 48.6 % 5:44 AM PRODUCT LINE MANAGER Erythrocytes 3.90 (L) 4.35 - 10/26/2021 DTL 5.65 5:44 AM PRODUCT LINE MANAGER x10(12)/L MCV 83.6 78.2 - 10/26/2021 DTL 97.9 fL 5:44 AM PRODUCT LINE MANAGER RBC Distrib Width 14.9 (H) 11.8 - 10/26/2021 DTL 14.5 % 5:44 AM PRODUCT LINE MANAGER Platelet Count 123 (L) 135 - 317 10/26/2021 DTL x10(9)/L 5:44 AM PRODUCT LINE MANAGER Leukocytes 1.6 (L) 3.4 - 9.6 10/26/2021 DTL x10(9)/L 5:44 AM PRODUCT LINE MANAGER Neutrophils 0.93 (L) 1.56 - 10/26/2021 DTL 6.45 5:44 AM PRODUCT LINE MANAGER x10(9)/L Lymphocytes 0.31 (L) 0.95 - 10/26/2021 DTL 3.07 5:44 AM PRODUCT LINE MANAGER x10(9)/L Monocytes 0.30 0.26 - 10/26/2021 DTL 0.81 5:44 AM PRODUCT LINE MANAGER x10(9)/L Eosinophils 0.05 0.03 - 10/26/2021 DTL 0.48 5:44 AM PRODUCT LINE MANAGER x10(9)/L Basophils <0.03 0.01 - 10/26/2021 DTL 0.08 5:44 AM PRODUCT LINE MANAGER x10(9)/L Specimen Anatomical Collection Method Collection Time Receive d Time (Source) Location / / Volume Laterality Blood (Blood, 10/26/2021 5:07 AM 10/26/19 5:38 Venous) PRODUCT LINE MANAGER AM PRODUCT LINE MANAGER Raymond Canales M.D. LAB BLOOD ADD-ON Performing Organization Address City/State/ZIP Code Phon e Number [facility] - [address] [place] [phone] [facility] [place] [place] [address] Laboratories[facility] [address] [facility] Clostridioides (Clostridium) difficile Toxin, Molecular Detection, PCR, Feces (10/25/2021 6:45 PM PRODUCT LINE MANAGER) [facility] Method Time Signature Specimen STOOL 10/26/2021 DTL Source 2:11 PM PRODUCT LINE MANAGER Result Negative Not Applicable 10/26/2021 DTL 2:11 PM PRODUCT LINE MANAGER Comment: ----ADDITIONAL INFORMATION---- This test was developed and its performa nce characteristics determined by [facility] in a manner consistent with CLIA requirements. This test has not been cleared or approved by the [place] d and Drug Administration. Specimen Anatomical Collection Method Collection Time Receive d Time (Source) Location / / Volume Laterality Stool (Stool) 10/25/2021 6:45 PM 10/25/19 7:36 PRODUCT LINE MANAGER PM PRODUCT LINE MANAGER Raymond F Howick V, M.D. LAB MICROBIOLOGY - GENERAL O RDERABLES Performing Organization Address City/[facility]/ZIP [facility] Phon e Number [facility] - [address] [place], [place] [address] [place] [address] [id number] [facility] [address] [facility] VRE PCR (10/25/2021 2:47 PM PRODUCT LINE MANAGER) [facility] gist Method Time Signature Specimen Swab, 10/26/2021 DTL Source Perirectal 1:03 AM PRODUCT LINE MANAGER VRE PCR Negative Negative 10/26/2021 DTL 1:03 AM PRODUCT LINE MANAGER Comment: ----ADDITIONAL INFORMATION---- This test was developed using an analyte specific reagent. Its performance characteristics were determined by [facility] in a manner consistent with CLIA requirements. This test has not bee n cleared or approved by the U.S. Food and Drug Administration. Specimen Anatomical Collection Method Collection Time Receive d Time (Source) Location / / Volume Laterality Varies 10/25/2021 2:47 PM 4:30 (Perirectal) PRODUCT LINE MANAGER PM PRODUCT LINE MANAGER Javan Mistry M.D., Ph.D. LAB MICROBIOLOGY - GENERAL ORDERABLES Performing Organization Address City/[facility] Phon e Number [facility] - [address] [place], [place] [address] [place] [id number] [place] [address] [address] [facility] Phosphorus Inorganic (10/25/2021 1:42 PM PRODUCT LINE MANAGER) athologist Signature Phosphorus 3.0 2.5 - 4.5 10/25/2021 DTL (Inorganic), S mg/dL 3:59 PM PRODUCT LINE MANAGER Specimen Anatomical Collection Method Collection Time Receive d Time (Source) Location / / Volume Laterality Blood (Blood, 10/25/2021 1:42 PM 10/25/19 2:08 Venous) PRODUCT LINE MANAGER PM PRODUCT LINE MANAGER Raymond Canales M.D. LAB BLOOD ADD-ON Performing Organization Address City/[facility] Phon e Number [facility] - [address] [place], [place] [address] [facility] [place] [address] [facility] [address] Magnesium (10/25/2021 1:42 PM PRODUCT LINE MANAGER) athologist Signature Magnesium, S 1.8 1.7 - 2.3 10/25/2021 DTL mg/dL 3:59 PM PRODUCT LINE MANAGER Specimen Anatomical Collection Method Collection Time Receive d Time (Source) Location / / Volume Laterality Blood (Blood, 10/25/2021 1:42 PM 10/25/19 2:08 Venous) PRODUCT LINE MANAGER PM PRODUCT LINE MANAGER Raymond Canales M.D. LAB BLOOD ADD-ON Performing Organization Address City/State/ZIP Code Phon e Number [facility] - [address] [place], [place] [address] [facility] [place] [address] Laboratories-[facility] [address] (ABNORMAL) Comprehensive Metabolic Panel (10/25/2021 1:42 PM PRODUCT LINE MANAGER) athologist Signature Potassium, S 3.6 3.6 - 5.2 10/25/2021 DTL mmol/L 3:33 PM PRODUCT LINE MANAGER Sodium, S 137 135 - 145 10/25/2021 DTL mmol/L 3:33 PM PRODUCT LINE MANAGER Chloride, S 103 98 - 107 10/25/2021 DTL mmol/L 3:33 PM PRODUCT LINE MANAGER Bicarbonate, S 24 22 - 29 10/25/2021 DTL mmol/L 3:33 PM PRODUCT LINE MANAGER Anion Gap 10 7 - 15 10/25/2021 DTL 3:33 PM PRODUCT LINE MANAGER BUN (Blood Urea 8 8 - 24 10/25/2021 DTL Nitrogen), S mg/dL 3:33 PM PRODUCT LINE MANAGER Creatinine 0.83 0.74 - 10/25/2021 DTL 1.35 mg/dL 3:33 PM PRODUCT LINE MANAGER eGFR-Non >90 >=60 10/25/2021 DTL Black/ mL/min/BSA 3:33 PM PRODUCT LINE MANAGER Ukrainian Comment: ----ADDITIONAL INFORMATION---- Estimated GFR calculated using the 2009 CKD_EPI creatinine equation. eGFR-Black/ >90 >=60 mL/min/BSA 2021 3:33 PM PRODUCT LINE MANAGER DTL Comment: ----ADDITIONAL INFORMATION---- Estimated GFR calculated using the 2009 CKD_EPI creatinine equation. Calcium, Total, S 8.1 (L) 8.6 - 10.0 mg/dL 10/25/2021 3:33 PM PRODUCT LINE MANAGER DTL Glucose, S 96 70 - 140 mg/dL 10/25/2021 3:33 PM PRODUCT LINE MANAGER D TL Protein, Total, S 5.9 (L) 6.3 - 7.9 g/dL 10/25/2021 3:33 P M PRODUCT LINE MANAGER DTL Albumin, S 3.7 3.5 - 5.0 g/dL 10/25/2021 3:33 PM PRODUCT LINE MANAGER D TL Aspartate Aminotransferase 20 8 - 48 U/L 10/25/2021 3 :33 PM PRODUCT LINE MANAGER DTL (AST), S Alkaline Phosphatase, S 134 (H) 40 - 129 U/L 10/25/2021 4: 01 PM PRODUCT LINE MANAGER DTL Alanine Aminotransferase 26 7 - 55 U/L 10/25/2021 3:3 3 PM PRODUCT LINE MANAGER DTL (ALT), S Bilirubin, Total, S 0.4 <=1.2 mg/dL 10/25/2021 3:33 PM PRODUCT LINE MANAGER DTL Specimen Anatomical Collection Method Collection Time Receive d Time (Source) Location / / Volume Laterality Blood (Blood, 10/25/2021 1:42 PM 10/25/19 2:08 Venous) PRODUCT LINE MANAGER PM PRODUCT LINE MANAGER Raymond Canales M.D. LAB BLOOD ADD-ON Performing Organization Address City/State/ZIP Code Phon e Number [facility] - [address] [place] [address] [facility] [place] [place] [address] Laboratories-[facility] 200 [facility] (ABNORMAL) CBC with Differential, Blood (10/25/2021 1:42 PM PRODUCT LINE MANAGER) [facility] Method Time Signature Hemoglobin 11.3 (L) 13.2 - 10/25/2021 DTL 16.6 g/dL 1:59 PM PRODUCT LINE MANAGER Hematocrit 34.2 (L) 38.3 - 10/25/2021 DTL 48.6 % 1:59 PM PRODUCT LINE MANAGER Erythrocytes 4.10 (L) 4.35 - 10/25/2021 DTL 5.65 1:59 PM PRODUCT LINE MANAGER x10(12)/L MCV 83.4 78.2 - 10/25/2021 DTL 97.9 fL 1:59 PM PRODUCT LINE MANAGER RBC Distrib Width 15.0 (H) 11.8 - 10/25/2021 DTL 14.5 % 1:59 PM PRODUCT LINE MANAGER Platelet Count 137 135 - 317 10/25/2021 DTL x10(9)/L 1:59 PM PRODUCT LINE MANAGER Leukocytes 1.8 (L) 3.4 - 9.6 10/25/2021 DTL x10(9)/L 1:59 PM PRODUCT LINE MANAGER Neutrophils 1.10 (L) 1.56 - 10/25/2021 DTL 6.45 1:59 PM PRODUCT LINE MANAGER x10(9)/L Lymphocytes 0.31 (L) 0.95 - 10/25/2021 DTL 3.07 1:59 PM PRODUCT LINE MANAGER x10(9)/L Monocytes 0.31 0.26 - 10/25/2021 DTL 0.81 1:59 PM PRODUCT LINE MANAGER x10(9)/L Eosinophils 0.03 0.03 - 10/25/2021 DTL 0.48 1:59 PM PRODUCT LINE MANAGER x10(9)/L Basophils <0.03 0.01 - 10/25/2021 DTL 0.08 1:59 PM PRODUCT LINE MANAGER x10(9)/L Specimen Anatomical Collection Method Collection Time Receive d Time (Source) Location / / Volume Laterality Blood (Blood, 10/25/2021 1:42 PM 10/25/19 1:53 Venous) PRODUCT LINE MANAGER PM PRODUCT LINE MANAGER Raymond Canales M.D. LAB BLOOD ADD-ON Performing Organization Address City/State/ZIP Code Phon e Number [facility] - [address] [place], [place] [address] [facility] [place] [address] Laboratories-[facility] [address] Chest with IV Contrast (10/25/2021 8:22 AM PRODUCT LINE MANAGER) Anatomical Region Laterality Modality Chest, Thoracic RST LOS, Thoracic ARZ N/A Co mputed Tomography, Computed LOS, Thoracic ARZ LOS, Thoracic FLA Olivier graphy LOS Specimen (Source) Anatomical Collection Method Collection Time Re ceived Time Location / / Volume Laterality 10/25/2021 8:19 AM PRODUCT LINE MANAGER Impressions 10/25/2021 8:54 AM PRODUCT LINE MANAGER 1. No evidence of bowel obstruction. 2. 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 No change in the presumed hepatic met astases. Narrative 10/25/2021 8:54 AM PRODUCT LINE MANAGER EXAM: CT ABDOMEN PELVIS WITH IV CONTRAST, CT CHEST WITH IV CONTRAST COMPARISON: Compared to CT chest [address] abdomen 10/23/2021 FINDINGS: CHEST: Port catheter tip near cavoatrial junction. No pleural or pericardial effusion. No change in the tiny pulmonary nodules in the lung b ases. No suspicious pulmonary nodule or consolidation. No significant mediastinal lymphadenopathy. No change in the lucent lesion in the T7. ABDOMEN: Biliary stent in the distal com mon bile duct extending to duodenum is unchanged. Expected pneumobilia. No significant biliary dila tation. Stable positioning of the transgastric pigtail drains with tips in the left mid abdomen without any significant residual fluid. The colon remains tethered to the region of the pigtail dr desai without evidence of bowel obstruction. No change in the low-density pancreatic neoplasm in the u ncinate process (series 1/image 54). Mild pancreatic parenchymal atrophy. No pancreatic dilat ation. Slight increased peripancreatic fat stranding and fluid. Marked narrowing of the portal ve in-SMV confluence is similar to prior. 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 Low-density lesion in the segment seven of the liver (series 1/image 19) measuri ng 8 mm is unchanged. Tiny nodules in the right paracolic gutter are unchanged. Mild hyperemia of the rectum. 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 Degenerative changes in th e spine. No aggressive osseous lesion. Procedure Note Sagar Keller M.B.BRiazS., M.D. - EXAM: CT ABDOMEN PELVIS WITH IV CONTRAST , CT CHEST WITH IV CONTRAST COMPARISON: Compared to CT chest [address] abdomen 10/23/2021 FINDINGS: CHEST: Port catheter tip near cavoatrial junction. No pleural or pericardial effusion. No change in the tiny pulmonary nodules in the lung b ases. No suspicious pulmonary nodule or consolidation. No significant mediastinal lymphadenopathy. No change in the lucent lesion in the T7. ABDOMEN: Biliary stent in the distal com mon bile duct extending to duodenum is unchanged. Expected pneumobilia. No significant biliary dila tation. Stable positioning of the transgastric pigtail drains with tips in the left mid abdomen without any significant residual fluid. The colon remains tethered to the region of the pigtail dr desai without evidence of bowel obstruction. No change in the low-density pancreatic neoplasm in the u ncinate process (series 1/image 54). Mild pancreatic parenchymal atrophy. No pancreatic dilat ation. Slight increased peripancreatic fat stranding and fluid. Marked narrowing of the portal ve in-SMV confluence is similar to prior. 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 Low-density lesion in the segment seven of the liver (series 1/image 19) measuri ng 8 mm is unchanged. Tiny nodules in the right paracolic gutter are unchanged. Mild hyperemia of the rectum. 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 Degenerative changes in th e spine. No aggressive osseous lesion. IMPRESSION: 1. No evidence of bowel obstruction. 2. 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 No change in the presumed hepatic met astases. Trell Rodriguez M.D., M.S. IMG CT PROCEDURES CT Abdomen Pelvis with IV Contrast (10/25/2021 8:22 AM PRODUCT LINE MANAGER) Anatomical Region Laterality Modality Abdomen, Pelvis, Abdominal RST LOS, N/A Comp uted Tomography, Computed Abdominal ARZ LOS, Abdominal FLA LOS Dileep ography Specimen (Source) Anatomical Collection Method Collection Time Re ceived Time Location / / Volume Laterality 10/25/2021 8:18 AM PRODUCT LINE MANAGER Impressions 10/25/2021 8:54 AM PRODUCT LINE MANAGER 1. No evidence of bowel obstruction. 2. 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 No change in the presumed hepatic met astases. Narrative 10/25/2021 8:54 AM PRODUCT LINE MANAGER EXAM: CT ABDOMEN PELVIS WITH IV CONTRAST, CT CHEST WITH IV CONTRAST COMPARISON: Compared to CT chest [address] abdomen 10/23/2021 FINDINGS: CHEST: Port catheter tip near cavoatrial junction. No pleural or pericardial effusion. No change in the tiny pulmonary nodules in the lung b ases. No suspicious pulmonary nodule or consolidation. No significant mediastinal lymphadenopathy. No change in the lucent lesion in the T7. ABDOMEN: Biliary stent in the distal com mon bile duct extending to duodenum is unchanged. Expected pneumobilia. No significant biliary dila tation. Stable positioning of the transgastric pigtail drains with tips in the left mid abdomen without any significant residual fluid. The colon remains tethered to the region of the pigtail dr desai without evidence of bowel obstruction. No change in the low-density pancreatic neoplasm in the u ncinate process (series 1/image 54). Mild pancreatic parenchymal atrophy. No pancreatic dilat ation. Slight increased peripancreatic fat stranding and fluid. Marked narrowing of the portal ve in-SMV confluence is similar to prior. 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 Low-density lesion in the segment seven of the liver (series 1/image 19) measuri ng 8 mm is unchanged. Tiny nodules in the right paracolic gutter are unchanged. Mild hyperemia of the rectum. 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 Degenerative changes in th e spine. No aggressive osseous lesion. Procedure Note Sagar Keller M.B.B.S., M.D. - EXAM: CT ABDOMEN PELVIS WITH IV CONTRAST , CT CHEST WITH IV CONTRAST COMPARISON: Compared to CT chest [address] abdomen 10/23/2021 FINDINGS: CHEST: Port catheter tip near cavoatrial junction. No pleural or pericardial effusion. No change in the tiny pulmonary nodules in the lung b ases. No suspicious pulmonary nodule or consolidation. No significant mediastinal lymphadenopathy. No change in the lucent lesion in the T7. ABDOMEN: Biliary stent in the distal com mon bile duct extending to duodenum is unchanged. Expected pneumobilia. No significant biliary dila tation. Stable positioning of the transgastric pigtail drains with tips in the left mid abdomen without any significant residual fluid. The colon remains tethered to the region of the pigtail dr desai without evidence of bowel obstruction. No change in the low-density pancreatic neoplasm in the u ncinate process (series 1/image 54). Mild pancreatic parenchymal atrophy. No pancreatic dilat ation. Slight increased peripancreatic fat stranding and fluid. Marked narrowing of the portal ve in-SMV confluence is similar to prior. 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 Low-density lesion in the segment seven of the liver (series 1/image 19) measuri ng 8 mm is unchanged. Tiny nodules in the right paracolic gutter are unchanged. Mild hyperemia of the rectum. 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 Degenerative changes in th e spine. No aggressive osseous lesion. IMPRESSION: 1. No evidence of bowel obstruction. 2. 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 No change in the presumed hepatic met astases. Anya Fischer M.D. IMG CT PROCEDURES Lactate (10/25/2021 7:48 AM PRODUCT LINE MANAGER) athologist Signature Lactate, P 1.0 0.5 - 2.2 10/25/2021 STMA mmol/L 8:30 AM PRODUCT LINE MANAGER Specimen Anatomical Collection Method Collection Time Receive d Time (Source) Location / / Volume Laterality Blood (Blood, 10/25/2021 7:48 AM 10/25/19 7:52 Venous) PRODUCT LINE MANAGER AM PRODUCT LINE MANAGER Trell Rodriguez M.D., M.S. LAB BLOOD NON ADD-ON Performing Organization Address City/[facility] Phon e Number [facility] - [address] [place] [address] [place] [address] [facility] Magnesium (10/25/2021 7:42 AM PRODUCT LINE MANAGER) [facility] Magn[facility], S 1.9 1.7 - 2.3 10/25/2021 DTL mg/dL 8:48 AM PRODUCT LINE MANAGER Specimen Anatomical Collection Method Collection Time Receive d Time (Source) Location / / Volume Laterality Blood (Blood, 10/25/2021 7:42 AM 10/25/19 8:22 Venous) PRODUCT LINE MANAGER AM PRODUCT LINE MANAGER Anya Fischer M.D. LAB BLOOD ADD-ON Performing Organization Address City/State/ZIP Code Phon e Number [facility] - [address] [place] [address] [facility] DTL [address] (ABNORMAL) Lipase (10/25/2021 7:42 AM PRODUCT LINE MANAGER) athologist [facility] Lipase, S 4 (L) 13 - 60 U/L 10/25/2021 8:48 DTL AM PRODUCT LINE MANAGER Specimen Anatomical Collection Method Collection Time Receive d Time (Source) Location / / Volume Laterality Blood (Blood, 10/25/2021 7:42 AM 10/25/19 8:22 Venous) PRODUCT LINE MANAGER AM PRODUCT LINE MANAGER Anya Fischer M.D. LAB BLOOD ADD-ON Performing Organization Address [facility] Phon e Number [facility] - [address] (ABNORMAL) Hepatic Function Panel (10/25/2021 7:42 AM PRODUCT LINE MANAGER) Patholo gist Method Time Signature Bilirubin, Total, S 0.5 <=1.2 10/25/2021 DTL mg/dL 8:48 AM PRODUCT LINE MANAGER Bilirubin, Direct, S <0.2 0.0 - 0.3 10/25/2021 DTL mg/dL 8:48 AM PRODUCT LINE MANAGER Aspartate 21 8 - 48 10/25/2021 DTL Aminotransferase U/L 8:48 AM PRODUCT LINE MANAGER (AST), S Alanine 32 7 - 55 10/25/2021 DTL Aminotransferase U/L 8:48 AM PRODUCT LINE MANAGER (ALT), S Alkaline 145 (H) 40 - 129 10/25/2021 DTL Phosphatase, S U/L 8:48 AM PRODUCT LINE MANAGER Albumin, S 4.0 3.5 - 5.0 10/25/2021 DTL g/dL 8:48 AM PRODUCT LINE MANAGER Protein, Total, S 6.4 6.3 - 7.9 10/25/2021 DTL g/dL 8:48 AM PRODUCT LINE MANAGER Specimen Anatomical Collection Method Collection Time Receive d Time (Source) Location / / Volume Laterality Blood (Blood, 10/25/2021 7:42 AM 10/25/19 8:22 Venous) PRODUCT LINE MANAGER AM PRODUCT LINE MANAGER Anya Fischer M.D. LAB BLOOD ADD-ON Performing Organization Address [facility] Phon e Number [facility] - [address] [place] [address] [place], [place] [id number] [place] [address] (ABNORMAL) Basic Metabolic Panel (10/25/2021 7:42 AM PRODUCT LINE MANAGER) P athologist Signature Potassium, P 3.3 (L) 3.6 - 5.2 10/25/2021 STMA mmol/L 8:53 AM PRODUCT LINE MANAGER Sodium, P 133 (L) 135 - 145 10/25/2021 STMA mmol/L 8:53 AM PRODUCT LINE MANAGER Chloride, P 97 (L) 98 - 107 10/25/2021 STMA mmol/L 8:53 AM PRODUCT LINE MANAGER Bicarbonate, P 24 22 - 29 10/25/2021 STMA mmol/L 8:53 AM PRODUCT LINE MANAGER Anion Gap, P 12 7 - 15 10/25/2021 STMA 8:53 AM PRODUCT LINE MANAGER BUN (Blood Urea 9 8 - 24 10/25/2021 STMA Nitrogen), P mg/dL 8:53 AM PRODUCT LINE MANAGER Creatinine 0.81 0.74 - 10/25/2021 STMA 1.35 mg/dL 8:53 AM PRODUCT LINE MANAGER eGFR-Black/Afri >90 >=60 10/25/2021 STMA can Ukrainian mL/min/BSA 8:53 AM PRODUCT LINE MANAGER Comment: ----ADDITIONAL INFORMATION---- Estimated GFR calculated using the 2009 CKD_EPI creatinine equation. eGFR Non-Black/ >90 >=60 mL/min/BSA 10/25/2021 8:53 AM PRODUCT LINE MANAGER STMA Comment: ----ADDITIONAL INFORMATION---- Estimated GFR calculated using the 2009 CKD_EPI creatinine equation. Calcium, Total, P 8.8 8.6 - 10.0 mg/dL 10/25/2021 8:53 AM PRODUCT LINE MANAGER STMA Glucose, P 137 70 - 140 mg/dL 10/25/2021 8:53 AM PRODUCT LINE MANAGER S TMA Specimen Anatomical Collection Method Collection Time Receive d Time (Source) Location / / Volume Laterality Blood (Blood, 10/25/2021 7:42 AM 10/25/19 7:52 Venous) PRODUCT LINE MANAGER AM PRODUCT LINE MANAGER Anya Fischer M.D. LAB BLOOD ADD-ON Performing Organization Address City/State/ZIP Code Phon e Number [facility] - [address] [place], [place] [address] [facility] [place] [address] Laboratories-[facility] [address] (ABNORMAL) CBC with Differential, Blood (10/25/2021 7:42 AM PRODUCT LINE MANAGER) [facility] Method Time Signature Hemoglobin 11.8 (L) 13.2 - 10/25/2021 STMA 16.6 g/dL 7:57 AM PRODUCT LINE MANAGER Hematocrit 35.4 (L) 38.3 - 10/25/2021 STMA 48.6 % 7:57 AM PRODUCT LINE MANAGER Erythrocytes 4.18 (L) 4.35 - 10/25/2021 STMA 5.65 7:57 AM PRODUCT LINE MANAGER x10(12)/L MCV 84.7 78.2 - 10/25/2021 STMA 97.9 fL 7:57 AM PRODUCT LINE MANAGER RBC Distrib Width 15.0 (H) 11.8 - 10/25/2021 STMA 14.5 % 7:57 AM PRODUCT LINE MANAGER Platelet Count 139 135 - 317 10/25/2021 STMA x10(9)/L 7:57 AM PRODUCT LINE MANAGER Leukocytes 2.1 (L) 3.4 - 9.6 10/25/2021 STMA x10(9)/L 7:57 AM PRODUCT LINE MANAGER Neutrophils 1.24 (L) 1.56 - 10/25/2021 STMA 6.45 7:57 AM PRODUCT LINE MANAGER x10(9)/L Lymphocytes 0.41 (L) 0.95 - 10/25/2021 STMA 3.07 7:57 AM PRODUCT LINE MANAGER x10(9)/L Monocytes 0.42 0.26 - 10/25/2021 STMA 0.81 7:57 AM PRODUCT LINE MANAGER x10(9)/L Eosinophils 0.04 0.03 - 10/25/2021 STMA 0.48 7:57 AM PRODUCT LINE MANAGER x10(9)/L Basophils <0.03 0.01 - 10/25/2021 STMA 0.08 7:57 AM PRODUCT LINE MANAGER x10(9)/L Specimen Anatomical Collection Method Collection Time Receive d Time (Source) Location / / Volume Laterality Blood (Blood, 10/25/2021 7:42 AM 10/25/19 7:52 Venous) PRODUCT LINE MANAGER AM PRODUCT LINE MANAGER Anya Fischer M.D. 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 calcium carbonate chewable tablet 400 mg of calcium (TUMS) 400 mg of calcium, oral, Every 2 hour OH N, heartburn, indigestion, Starting on Mon10/25/21 at 1215, Doses listed are in mg of elemental calcium. Take with food. 500 mg calcium carbonate contains 200 mg of elemental calc ium. enoxaparin injection 40 mg Given 10/29/2021 8:20 AM PRODUCT LINE MANAGER 40 mg Left Upper Arm (LOVENOX) (Back) 40 mg, subcutaneous, Every 24 hours scheduled, First dose on Mon10/25/21 at 1230 Given 10/28/2021 8:27 AM PRODUCT LINE MANAGER 40 mg Right Lower Abdomen Given 10/27/2021 8:01 AM PRODUCT LINE MANAGER 40 mg Left Lower Abdomen heparin flush 500 Units Given 10/29/2021 10:53 AM PRODUCT LINE MANAGER 500 Units 500 Units, intra-catheter, During hospitalization, line care, Prior to discharge, Starting on Mon10/29/21 at 1049, For 1 dose, Implanted Vascular Access Device (IVAD) Venous Non-Valved: Following saline flush prior to discharge. HYDROmorphone (PF) injection 0.2 mg (DIL AUDID) 0.2 mg, intravenous, Every 3 hours PRN, severe pain or score 7-10 of 10, Starting on Mon10/27/21 at 1604 HYDROmorphone injection 1 mg (DILAUDID) Given 10/25/2021 9:59 AM PRODUCT LINE MANAGER 1 mg 1 mg, intravenous, Every 30 min PRN, severe pain or score 7-10 of 10, Starting on Mon10/25/21 at 0954, For 3 doses HYDROmorphone tablet 2 mg (DILAUDID) Given 10/25/2021 2:29 PM PRODUCT LINE MANAGER 2 mg 2 mg, oral, Every 6 hours PRN, severe pain or score 7-10 of 10, Starting on Mon10/25/21 at 1234, Indications: Chronic Pain/Nonacute Pain HYDROmorphone tablet 2 mg (DILAUDID) Given 10/27/2021 12:02 PM PRODUCT LINE MANAGER 2 mg 2 mg, oral, Every 4 hours PRN, moderate pain or score 4-6 of 10, Starting on Mon10/25/21 at 1444 Given 10/27/2021 7:20 AM PRODUCT LINE MANAGER 2 mg Given 10/27/2021 2:56 AM PRODUCT LINE MANAGER 2 mg HYDROmorphone tablet 4 mg (DILAUDID) Given 10/29/2021 9:48 AM PRODUCT LINE MANAGER 4 mg 4 mg, oral, Every 4 hours PRN, moderate pain or score 4-6 of 10, Starting on Mon10/27/21 at 1604 Given 10/28/2021 4:45 PM PRODUCT LINE MANAGER 4 mg Given 10/28/2021 11:44 AM PRODUCT LINE MANAGER 4 mg iohexoL 300 mg iodine/mL solution 1-200 mL (OMNIPAQUE) 1-200 mL, intravenous, Once in imaging, contrast, Starting on Mon10/25/21 at 0818, For 1 dose, Imaging Protocol Orders, Dose per Radiant Medication Guidelines iohexoL 300 mg iodine/mL solution 1-200 mL Given 10/25/2021 8:19 AM PRODUCT LINE MANAGER 140 mL (OMNIPAQUE) 1-200 mL, intravenous, Once in imaging, contrast, Starting on Mon10/25/21 at 0818, For 1 dose, Imaging Protocol Orders, Dose per Radiant Medication Guidelines lactated Ringer's bolus 1,000 mL New Bag 10/25/2021 4:41 PM PRODUCT LINE MANAGER 1,000 mL 1000 mL/hr 1,000 mL, intravenous, at 1,000 mL/hr, Administer over 1 Hours, Once, On Mon10/25/21 at 1545, For 1 dose lactated Ringer's bolus 1,000 mL New Bag 10/26/2021 10:06 AM PRODUCT LINE MANAGER 1,000 mL 500 mL/hr 1,000 mL, intravenous, at 500 mL/hr, Administer over 2 Hours, Once, On Mon10/26/21 at 0930, For 1 dose lactated Ringer's bolus 1,000 mL New Bag 10/27/2021 10:38 AM PRODUCT LINE MANAGER 1,000 mL 500 mL/hr 1,000 mL, intravenous, at 500 mL/hr, Administer over 2 Hours, Once, On Mon10/27/21 at 0945, For 1 dose lactated Ringer's bolus 1,000 mL New Bag 10/28/2021 11:45 AM PRODUCT LINE MANAGER 1,000 mL 500 mL/hr 1,000 mL, intravenous, at 500 mL/hr, Administer over 2 Hours, Once, On Mon10/28/21 at 1100, For 1 dose [id number] Given 10/29/2021 8:20 AM PRODUCT LINE MANAGER 40,000 Unit s of 20,000-63,000- 84,[address] lipase capsule 40,000 Units of lipase (ZENPEP) 40,000 Units of lipase, oral, 3 times daily with meals, First dose (after last modification) on Mon10/25/21 at 1700, ZENPEP lipase 20,000/63,000/84,000 units were interchanged for lipase content 15,000 to < 25,000 units oral cap/tab Do NOT crush or chew. Capsule may be opened and the contents taken without crushing or chewing. Given 10/27/2021 4:16 PM PRODUCT LINE MANAGER 40,000 Units of lipase loperamide capsule 2 mg (IMODIUM A-D) Given 10/27/2021 5:51 AM PRODUCT LINE MANAGER 2 mg 2 mg, oral, 4 times daily PRN, diarrhea, Starting on Mon10/26/21 at 1902, loperamide (IMODIUM A-D) orderable was interchanged for the loperamide (IMODIUM A-D) tablet/capsule Given 10/26/2021 9:33 PM PRODUCT LINE MANAGER 2 mg loperamide capsule 2 mg (IMODIUM A-D) Given 10/29/2021 9:10 AM PRODUCT LINE MANAGER 2 mg 2 mg, oral, 4 times daily PRN, diarrhea, Starting on Mon10/27/21 at 1033, loperamide (IMODIUM A-D) orderable was interchanged for the loperamide (IMODIUM A-D) tablet/capsule Given 10/28/2021 6:33 AM PRODUCT LINE MANAGER 2 mg Given 10/27/2021 4:16 PM PRODUCT LINE MANAGER 2 mg loperamide capsule 4 mg (IMODIUM A-D) Given 10/27/2021 10:56 AM PRODUCT LINE MANAGER 4 mg 4 mg, oral, 2 times daily PRN, diarrhea, Starting on Mon10/27/21 at 1033, loperamide (IMODIUM A-D) orderable was interchanged for the loperamide (IMODIUM A-D) tablet/capsule LORazepam tablet 0.5 mg (ATIVAN) 0.5 mg, oral, Every 4 hours PRN, nausea and vomiting, Starting on Mon10/27/21 at 1239 magnesium sulfate in D5W IVPB 1 g New Bag 10/28/2021 1:58 PM PRODUCT LINE MANAGER 1 g 100 mL/hr 1 g, intravenous, at 100 mL/hr, Administer over 60 Minutes, Once, On Mon10/28/21 at 1100, For 1 dose, Over 1 hours. melatonin tablet 3 mg 3 mg, oral, Daily at bedtime, First dose on Mon 2 at 0000 NaCl 0.9 % bolus 1,000 mL New Bag 10/25/2021 7:54 AM PRODUCT LINE MANAGER 1,000 mL 1000 mL/hr 1,000 mL, intravenous, at 1,000 mL/hr, Administer over 1 Hours, Once, On Mon10/25/21 at 0745, For 1 dose naloxone injection 0.4 mg (NARCAN) 0.4 mg, intravenous, As needed, reversal, Starting on Mon10/25/21 at 1445 ondansetron ODT disintegrating tablet 4 mg Given 10/27/2021 12:0 2 PM PRODUCT LINE MANAGER 4 mg (ZOFRAN-ODT) 4 mg, sublingual, Every 4 hours PRN, nausea, vomiting, Starting on Mon10/25/21 at 0735, When splitting ODT at bedside, handle with gloves and a pill splitter to prevent moisture contact. Given 10/27/2021 7:20 AM PRODUCT LINE MANAGER 4 mg Given 10/27/2021 2:56 AM PRODUCT LINE MANAGER 4 mg ondansetron ODT disintegrating tablet 8 mg Given 10/28/2021 7:50 PM PRODUCT LINE MANAGER 8 mg (ZOFRAN-ODT) 8 mg, sublingual, Every 8 hours PRN, nausea, vomiting, Starting on Mon10/27/21 at 1407, When splitting ODT at bedside, handle with gloves and a pill splitter to prevent moisture contact. Given 10/28/2021 11:44 AM PRODUCT LINE MANAGER 8 mg Given 10/28/2021 4:00 AM PRODUCT LINE MANAGER [address] tablet 40 mg (PROTONIX) Given 10/28/2021 6:33 AM PRODUCT LINE MANAGER 40 mg 40 mg, oral, 2 times daily before breakfast and dinner, First dose on Mon10/25/21 at 1600, Swallow whole. Do NOT crush, chew, or split tablet. Given 10/27/2021 4:16 PM PRODUCT LINE MANAGER 40 mg Given 10/27/2021 5:51 AM PRODUCT LINE MANAGER 40 mg pantoprazole injection 40 mg (PROTONIX) Given 10/29/2021 8:20 AM PRODUCT LINE MANAGER 40 mg 40 mg, intravenous, Every 24 hours scheduled, First dose on Mon10/29/21 at 0900, Administer IV push over 2 minutes. Add 10 mL NS to 40 mg vial for a final concentration of 4 mg/mL. polyethylene glycol powder packet 17 g ( MIRALAX) 17 g, oral, Daily PRN, constipation, Starting on Mon at 1215, Ordered sequence of administration: polyethylene glycol, then bisacodyl until BM achieved. Avoid mixing with starch-based thickened liquids. potassium bicarb-citric acid disintegrating Given 10/27/2021 1:50 PM PRODUCT LINE MANAGER 40 mEq tablet 40 mEq (EFFER-K) 40 mEq, oral, Once, On Mon10/27/21 at 1230, For 1 dose, For K 3-3.4 mEq/L - give total of 40 mEq Dissolve per director of logistics recommendations. Do NOT chew or swallow tablet., Monitor the following for replacement: Potassium, Replace Potassium per: Standard Schedule potassium bicarb-citric acid disintegrating Given 10/29/2021 8:21 AM PRODUCT LINE MANAGER 40 mEq tablet 40 mEq (EFFER-K) 40 mEq, oral, Once, On Mon10/29/21 at 0800, For 1 dose, For K 3-3.4 mEq/L - give total of 40 mEq Dissolve per director of logistics recommendations. Do NOT chew or swallow tablet., Monitor the following for replacement: Potassium, Replace Potassium per: Standard Schedule potassium chloride ER tablet 40 mEq Given 10/26/2021 9:03 AM PRODUCT LINE MANAGER 40 mEq (KLORCON/K-TAB) 40 mEq, oral, Once, On Mon10/26/21 at 0715, For 1 dose, For K 3-3.4 mEq/L - give total of 40 mEq Swallow whole. Do NOT crush, chew, or split tablet., Monitor the following for replacement: Potassium, Replace Potassium per: Standard Schedule potassium chloride ER tablet 40 mEq Given 10/27/2021 7:58 AM PRODUCT LINE MANAGER 40 mEq (KLORCON/K-TAB) 40 mEq, oral, Once, On Mon10/27/21 at 0745, For 1 dose, For K 3-3.4 mEq/L - give total of 40 mEq Swallow whole. Do NOT crush, chew, or split tablet., Monitor the following for replacement: Potassium, Replace Potassium per: Standard Schedule sodium chloride (PF) 0.9 % injection 1-1 00 mL Given 10/25/2021 8:19 AM PRODUCT LINE MANAGER 50 mL 1-100 mL, intravenous, Once, On Mon10/25/21 at 0819, For 1 dose, Imaging Protocol Orders sodium chloride 0.9 % injection 3 mL Given 10/29/2021 8:21 AM PRODUCT LINE MANAGER 3 mL 3 mL, intravenous, Every 12 hours scheduled, First dose (after last modification) on Mon10/25/21 at 2100, Peripheral Intravenous Catheter and Rapid Infusion Catheter, when no infusion to maintain patency Given 10/28/2021 7:49 PM PRODUCT LINE MANAGER 3 mL Given 10/28/2021 8:27 AM PRODUCT LINE MANAGER 3 mL traZODone tablet 25 mg (DESYREL) Given 10/28/2021 10:24 PM PRODUCT LINE MANAGER 25 mg 25 mg, oral, Bedtime PRN, sleep, Starting on Sandra 10/28/21 at 0018 Given 10/28/2021 12:41 AM PRODUCT LINE MANAGER 25 mg documented in this encounter Active and Recently Administered Medications Times are shown in PRODUCT LINE MANAGER. Scheduled Medication Order 10/27/2021 10/28/2021 10/29/2021 enoxaparin injection 40 mg (LOVENOX) 0801 (Given - Pro vider: Jackie Delarosa RMariajose) 0827 (Given - Provider: Jackie Delarosa R.N.) 0820 ( Given - Provider: Noemy Juarez RMariajose) 40 mg, subcutaneous, Every 24 hours sche duled, First dose on Mon10/25/21 at 1230 gabapentin capsule 600 mg (NEURONTIN) 2015 (Not Given - Provider: Thais Crawford RRiazN. - Reason: Patient/family refused) 1948 (Not Given - Provider: Jonel Richardson RRiazNRiaz - Reason: Patient/family refused) 600 mg, oral, Daily at bedtime, First do se (after last modification) on Mon10/25/21 at 2100 lactated Ringer's bolus 1,000 mL (COMPLETED) 1038 (New Bag - Provider: Lakshmi Greco RRiazNRiaz) 1,000 mL, intravenous, at 500 mL/hr, Adm inister over 2 Hours, Once, On Mon10/27/21 at 0945, For 1 dose lactated Ringer's bolus 1,000 mL (COMPLETED) 1145 (New Bag - Provider: Jackie Delarosa R.N.) 1,000 mL, intravenous, at 500 mL/hr, Adm inister over 2 Hours, Once, On Sandra 10/28/21 at 1100, For 1 dose [id number] 20,000-63,000- 8 4,[address] capsule 40,000 Units of lipase (ZENPEP) 0804 (Not Given - Provider: Jackie landers R.N. - Reason: Order parameters not met)1200 (Not Given - Provider: Jackie Delarosa R.N. - Reason: Order parameters not met)1616 (Given - Provider: Jackie Delarosa R.N.) 0903 (Not Given - Provider: Jackie landers R.N. - Reason: Order parameters not met)1204 (Not Given - Provider: Jackie Delarosa R.N. - Reason: Patient/family refused) 0820 (Given - Provider: Noemy Juarez R.N.) 40,000 Units of lipase, oral, 3 times da elvie with meals, First dose (after last modification) on Mon10/25/21 at 1700, ZENPEP lipase 20,000/63,000/84,000 units were interchanged for lipase content 15,000 1721 (Not Given - Provider: Jackie Delarosa R.N. - Reason: Patient/family refused) to < 25,000 units oral cap/tab Do NOT cr ush or chew. Capsule may be opened and the contents taken without crushing or chewing. magnesium sulfate in D5W IVPB 1 g (COMPLETED) 1358 (New Bag - Provider: Tae Ayala R.N., CCRN) 1 g, intravenous, at 100 mL/hr, Administ er over 60 Minutes, Once, On Sandra 10/28/21 at 1100, For 1 dose, Over 1 hours. melatonin tablet 3 mg 0019 (Not Given - Provider: Thais Crawford RMariajose - Reason: Patient/family refused)194 (Not Given - Provider: Jonel Richardson R.N. - Reason: Patient/family refused) 3 mg, oral, Daily at bedtime, First dose on Sadnra 10/28/[address] tablet 40 mg (PROTONIX) (CANCELED) 055 1 (Given - Provider: Darren Morrison RRiazNRiaz)1616 (Given - Provider: Jackie Delarosa R.N.) 0633 (Given - Provider: Thais Crawford RMariajose) 40 mg, oral, 2 times daily before breakf ast and dinner, First dose on Mon10/25/21 at 1600, Swallow whole. Do NOT crush, chew, or split tablet. pantoprazole injection 40 mg (PROTONIX) 819 (Given - Provider: Noemy Juarez R.N.) 40 mg, intravenous, Every 24 hours sched uled, First dose on Mon10/29/21 at 0900, Administer IV push over 2 minutes. Add 10 mL NS to 40 mg vial for a final concentration of 4 mg/mL. potassium bicarb-citric acid disintegrating tablet 40 mEq (EFFER-K) (COMPLETED) 1350 (Given - Provider: Jackie Delarosa R.N.) 40 mEq, oral, Once, On Mon10/27/21 at 12 30, For 1 dose, For K 3-3.4 mEq/L - give total of 40 mEq Dissolve per director of logistics recommendations. Do NOT chew or swallow tablet., Monitor the following for repl acement: Potassium, Replace Potassium per: Standard Schedule potassium bicarb-citric acid disintegrating tablet 40 mEq (EFFER-K) (COMPLETED) 08 (Given - Provider: Noemy Juarez R.N.) 40 mEq, oral, Once, On Mon10/29/21 at 08 00, For 1 dose, For K 3-3.4 mEq/L - give total of 40 mEq Dissolve per director of logistics recommendations. Do NOT chew or swallow tablet., Monitor the following for repl acement: Potassium, Replace Potassium per: Standard Schedule potassium chloride ER tablet 40 mEq (KLORCON/K-TAB) (C OMPLETED) 1644 (Given - Provider: Jackie Delarosa R.N.) 40 mEq, oral, Once, On Mon10/27/21 at 07 45, For 1 dose, For K 3-3.4 mEq/L - give total of 40 mEq Swallow whole. Do NOT crush, chew, or split tablet., Monitor the following for replacement: Potassium, Replace Potassium per: Standard Schedule sodium chloride 0.9 % injection 3 mL 0802 (Given - Pro vider: Jackie Delarosa R.N.)2015 (Given - Provider: Thais Crawford R.N.) 08 (Given - Provider: Jackie Delarosa R.N.)1948 (Given - Provider: Jonel Richardson R.N.) 08 (Given - Provider: Noemy Juarez R.N.) 3 mL, intravenous, Every 12 hours schedu led, First dose (after last modification) on Mon10/25/21 at 2100, Peripheral Intravenous Catheter and Rapid Infusion Catheter, when no infusion to maintain patency PRN Medication Order 10/27/2021 10/28/2021 10/29/2021 acetaminophen tablet 500 mg (TYLENOL) 19 49 (Not Given - Provider: Jonel Richardson R.N. - Reason: Patient/family refused) 500 mg, oral, Every 6 hours PRN, mild pa in or score 1-3 of 10, headaches, Starting on Mon10/25/21 at 1235 bisacodyL suppository 10 mg (DULCOLAX) 10 mg, rectal, Daily PRN, constipation, Starting on Mon10/25/21 at 1215, Ordered sequence of administration: polyethylene glycol, then bisacodyl until BM achieved. calcium carbonate chewable tablet 400 mg of calcium (TUMS) 400 mg of calcium, oral, Every 2 hour OH N, heartburn, indigestion, Starting on Mon10/25/21 at 1215, Doses listed are in mg of elemental calcium. Take with food. 500 mg calcium carbonate contains 200 mg of elemental calcium. heparin flush 500 Units (COMPLETED) 1053 (Given - Provider: Aylin Moody RMariajose) 500 Units, intra-catheter, During hospit alization, line care, Prior to discharge, Starting on Mon10/29/21 at 1049, For 1 dose, Implanted Vascular Access Device (IVAD) Venous Non-Valved: Following saline flush prior to discharge. HYDROmorphone (PF) injection 0.2 mg (DILAUDID)(Linked Group 1) 1616 (See Alternative - Provider: Jackie Delarosa R.N.)2014 (See Alternative - Provider: Thais Crawford R.N.) 0633 (See Alternative - Provider: Candelaria Crawford R.N.)1144 (See Alternative - Provider: Jackie Delarosa R.N.)1645 (See Alternative - Provider: Jackie Delarosa R.N.)2224 (See Alternative - P rovider: Jonel Richardson R.N.) 0948 (See Alternative - Provider: Noemy Juarez R.N.) 0.2 mg, intravenous, Every 3 hours PRN, severe pain or score 7-10 of 10, Starting on Mon10/27/21 at 1604 HYDROmorphone tablet 2 mg (DILAUDID) (CANCELED) 0256 ( Given - Provider: Jacquie Mae R.N.)0720 (Given - Provider: Jackie Delarosa R.N.)1202 (Given - Provider: China Brandt RRiazNRiaz) 2 mg, oral, Every 4 hours PRN, moderate pain or score 4-6 of 10, Starting on Mon10/25/21 at 1444 HYDROmorphone tablet 4 mg (DILAUDID)(Linked Group 1) 1 616 (Given - Provider: Jackie Delarosa R.N.)2014 (Given - Provider: Thais Crawford R.N.) 0633 (Given - Provider: Thais Crawford R.N.)1144 (Given - Provider: Jackie Delarosa R.N.)1645 (Given - Provider: Jackie Delarosa R.N.)2224 (Not Given - Provider: Jonel Richardson R.N. - Reason: Patient/family refused) 0948 (Given - Provider: Noemy Juarez R.N.) 4 mg, oral, Every 4 hours PRN, moderate pain or score 4-6 of 10, Starting on Mon10/27/21 at 1604 iohexoL 300 mg iodine/mL solution 1-200 mL (OMNIPAQUE) 1-200 mL, intravenous, Once in imaging, contrast, Starting on Mon10/25/21 at 0818, For 1 dose, Imaging Protocol Orders, Dose per Radiant Medication Guidelines loperamide capsule 2 mg (IMODIUM A-D) (CANCELED) 0551 (Given - Provider: Darren Morrison RMariajose) 2 mg, oral, 4 times daily PRN, diarrhea, Starting on Mon10/26/21 at 1902, loperamide (IMODIUM A-D) orderable was interchanged for the loperamide (IMODIUM A-D) tablet/capsule loperamide capsule 2 mg (IMODIUM A-D)(Linked Group 2) 1056 (See Alternative - Provider: Jackie Delarosa R.N.)1616 (Given - Provider: Jackie Delarosa R.N.) 0633 (Given - Provider: Thais Crawford RMariajose) 09 10 (Given - Provider: Noemy Juarez RRiazNRiaz) 2 mg, oral, 4 times daily PRN, diarrhea, Starting on Mon10/27/21 at 1033, loperamide (IMODIUM A-D) orderable was interchanged for the loperamide (IMODIUM A-D) tablet/capsule loperamide capsule 4 mg (IMODIUM A-D)(Linked Group 2) 1056 (Given - Provider: Jackie Delarosa R.N.)1616 (See Alternative - Provider: Jackie Delarosa R.N.) 0633 (See Alternative - Provider: Thais Crawford R.N.) 0910 (See Alternative - Provider: Noemy Juarez R.N.) 4 mg, oral, 2 times daily PRN, diarrhea, Starting on Mon10/27/21 at 1033, loperamide (IMODIUM A-D) orderable was interchanged for the loperamide (IMODIUM A-D) tablet/capsule LORazepam tablet 0.5 mg (ATIVAN) 1621 (Not Given - Pro vider: Jackie Delarosa R.N. - Reason: Patient/family refused) 0.5 mg, oral, Every 4 hours PRN, nausea and vomiting, Starting on Mon10/27/21 at 1239 naloxone injection 0.4 mg (NARCAN) 0.4 mg, intravenous, As needed, reversal, Starting on Mon 2 at 1445 ondansetron ODT disintegrating tablet 4 mg (ZOFRAN-ODT ) (CANCELED) 0256 (Given - Provider: Jacquie Mae R.N.)0720 (Given - Provider: Jackie Delarosa R.N.)1202 (Given - Provider: China Brandt RRiazNRiaz) 4 mg, sublingual, Every 4 hours PRN, mari sea, vomiting, Starting on Mon10/25/21 at 0735, When splitting ODT at bedside, handle with gloves and a pill splitter to prevent moisture contact. ondansetron ODT disintegrating tablet 8 mg (ZOFRAN-ODT ) 2014 (Given - Provider: Thais Crawford RMariajose) 0400 (Given - Provider: Thais ghosh R.N.)1144 (Given - Provider: Jackie Delarosa RRiazNRiaz)1950 (Given - Provider: Jonel Richardson RRiazNRiaz) 8 mg, sublingual, Every 8 hours PRN, mari sea, vomiting, Starting on Mon10/27/21 at 1407, When splitting ODT at bedside, handle with gloves and a pill splitter to prevent moisture contact. polyethylene glycol powder packet 17 g (MIRALAX) 17 g, oral, Daily PRN, constipation, Sta rting on Mon10/25/21 at 1215, Ordered sequence of administration: polyethylene glycol, then bisacodyl until BM achieved. Avoid mixing with starch-based thickened liquids. traZODone tablet 25 mg (DESYREL) 0041 (G iven - Provider: Thais Crawford RRiazNRiaz)194 (Not Given - Provider: Jonel Richardson R.N. - Reason: Patient/family refused)2224 (Given - Provider: Jonel Richardson RRiazN.) 25 mg, oral, Bedtime PRN, sleep, Starting on Sandra 10/28/21 at 0018 Linked Groups Order Group 1: HYDROmorphone tablet 4 mg (DILAUDID)Jump to med 4 mg, oral, Every 4 hours PRN, moderate pain or score 4-6 of 10, Starting on Mon10/27/21 at 1604 Or HYDROmorphone (PF) injection 0.2 mg (DILAUDID)Jump to med 0.2 mg, intravenous, Every 3 hours PRN, severe pain or score 7-10 of 10, Starting on Mon10/27/21 at 1604 Group 2: loperamide capsule 2 mg (IMODIUM A-D)Jump to med 2 mg, oral, 4 times daily PRN, diarrhea, Starting on Mon10/27/21 at 1033
loperamide (IMODIUM A-D) orderable was interchanged for the loperamide (IMODIUM A-D) tablet/capsule
Or loperamide capsule 4 mg (IMODIUM A-D)Jump to med 4 mg, oral, 2 times daily PRN, diarrhea, Starting on Mon10/27/21 at 1033
loperamide (IMODIUM A-D) orderable was interchanged for the loperamide (IMODIUM A-D) tablet/capsule
documented in this encounter Additional Health Concerns Assessment Noted Time PHQ-9 Depression Total Score: 2 10/01/2021 10:34 AM CS T documented as of this encounter Care Teams Vessel Master Relationship Specialty Start Date End Date Elsewhere, Pcp PCP - General Family Medicine 08/12/20 documented as of this encounter
--- OUTSIDE RECORDS SUMMARY | 2022-06-18 16:06 | XMS_ITS | Encounter Summary ---
:1965 Author Organization [facility] Address [address] [place] [id number] Care Team Providers Name Role Phone Elsewhere, Pcp Primary Care Provider Unavailable Reason for Visit Reason Comments Med Refill Encounter Details Date Type Department Care Team Description 10/22/2021 Refill Department of Palliative Care Terri Wood APRN, Med Refill in [facility] C.N.P., D.N.P. [address] [facility] [address] [place] [address] [place] [address] [phone] (Wo rk) Social History Tobacco Use Types [...] How often do you attend orthodoxy or mormon services? 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 Last strength/amount/date filled: Hydromorphone 4 mg, #60 08/13/21 [place] PAYROLL ADMINISTRATOR reviewed Prescription/amount provided today: Hydromorphone 4 mg, #60 Prescription will be e-Prescribed to the following pharmacy: [place], [place] Last appointment was in person office visit on 08/12/21 Last in-office visit if different than above: N/A Next palliative appointment is in person office visit on 11/12/21 Prescription was authorized by Kareen Wood DNP R INSTALLATION MECHANIC documented in this encounter Plan of Treatment Upcoming Encounters Date Type Specialty Care Team Description 06/22/2022 Lab Laboratory Medicine Maria Del Rosario Gomez AP RN, C.N.P., M.S. [address] [place] [address] [phone] (Wo rk) 06/22/2022 Infusion Oncology Maria Del Rosario Gomez APRN, C.N .P., M.S. [address] [place] [address] [phone] (Wo rk) 06/29/2022 Lab Laboratory Medicine Maria Del Rosario Gomez AP RN, C.N.P., M.S. [address] [place] [address] [phone] (Wo rk) 06/29/2022 Infusion Oncology Maria Del Rosario Gomez APRN, C.N .P., M.S. [address] [place] [address] [phone] (Wo rk) documented as of this encounter Visit Diagnoses Not on filedocumented in this encounter Additional Health Concerns Infection Onset Date Last Indicated Resolved Time COVID19 Pending 10/24/2021 10/24/2021 10/24/2021 8:21 AM FLOOR INSTALLATION MECHANIC Assessment Noted Time PHQ-9 Depression Total Score: 2 10/01/2021 10:34 AM CS T documented as of this encounter Care Teams Drying Oven Tender Relationship Specialty Start Date End Date Elsewhere, Pcp PCP - General Family Medicine 08/12/20 documented as of this encounter
--- OUTSIDE RECORDS SUMMARY | 2022-06-18 16:06 | XMS_ITS | Encounter Summary ---
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 Rst On[facility] Rogo Procedures VA ONDANSETRON HCL INJECTION VA DEXAMETHASONE SODIUM PHOS VA LEUCOVORIN CALCIUM INJECTION VA PALONOSETRON HCL VA INJ IRINOTECAN LIPOSOME 1 MG VA FLUOROURACIL INJECTION [address] [facility] [address] [place] [phone] Referral ID Status Reason Start Date Expiration Date Visits Requ ested Visits Authorized [id number] Closed 08/27/2021 08/27/2022 18 18 Encounter Details Date Type Department Care Team Description 10/15/2021 Infusion Department of Oncology Vladislav Zarco Secondary Malignant Neoplasm Liver (HCC) (Primary Dx); in [facility] elke Pereira M.D. Malignant Neoplasm Of Pancreas (HCC); [address] [facility] [address] [facility] [place] [phone] (Wo rk) Social History Tobacco Use Types [...] er 01/15/2021 How often do you attend sikh or voodoo services? 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 [address] [place] [address] [phone] (Mj godoy) 06/22/2022 Infusion Oncology Maria Del Rosario Gomez APRN, C.N .P., M.S. [address] [place] [address] [phone] (Mj godoy) 06/29/2022 Lab Laboratory Medicine Maria Del Rosario Gomez AP RN, C.N.P., M.S. [address] [place] [address] [phone] (Mj godoy) 06/29/2022 Infusion Oncology Maria Del Rosario Gomez APRN, C.N .P., M.S. [address] [place] [address] [phone] (Mj godoy) documented as of this encounter Visit Diagnoses Diagnosis Secondary Malignant Neoplasm Liver (HCC) - Primary Malignant Neoplasm Of Pancreas (HCC) Bacteremia documented in this encounter Administered Medications Inactive Administered Medications - up to 3 most recent administrations Medication Order MAR Action Action Date Dose Rate Site atropine injection 0.5 Given 10/15/2021 12:22 PM 0.5 mg Left Lower Abdomen mg FERMENTER OPERATOR 0.5 mg, subcutaneous, Once, On Mon10/15/21 at 1130, For 1 dose, PRE treatment dexAMETHasone injection 8 mg (DECADRON) Given 10/15/2021 11:27 AM FERMENTER OPERATOR 8 mg 8 mg, intravenous, Once, On Mon10/15/21 at 1130, For 1 dose fluorouraciL 5,000 mg in NaCl 0.9% Given 10/15/2021 2:39 PM FERMENTER OPERATOR 5,000 mg 2.2 mL/hr 102 mL IVPB (ADRUCIL) 5,000 mg (rounded from 4,776 mg = 2,400 mg/m2 ? 1.99 m2 Treatment Plan BSA from Measured weight), intravenous, at 2.2 mL/hr, Administer over 46 Hours, over 46 hours, First dose on Mon10/15/21 at 1330, For 1 dose, Infuse at 2.2mL/hr for 46 hours continuous infusion via CADD pump # [id number]. irinotecan liposomaL 129 mg in D5W New Bag 10/15/2021 12:21 PM FERMENTER OPERATOR 129 mg 353 mL/hr 530 mL IVPB (ONIVYDE) 129 mg (rounded from 139.3 mg = 70 mg/m2 ? 1.99 m2 Treatment Plan BSA from Measured weight), intravenous, at 353 mL/hr, Administer over 90 Minutes, Once, On Mon10/15/21 at 1130, For 1 dose, Administer immediately following the administration of oral onvansertib. Protect from light. No in-line filter. leucovorin 800 mg in NaCl 0.9% 315 New Bag 10/15/2021 2:05 PM FERMENTER OPERATOR 800 mg 630 mL/hr mL IVPB 800 mg (rounded from 796 mg = 400 mg/m2 ? 1.99 m2 Treatment Plan BSA from Measured weight), intravenous, at 630 mL/hr, Administer over 30 Minutes, Once, On Mon10/15/21 at 1300, For 1 dose, Follows irinotecan liposome. palonosetron injection 0.25 mg (ALOXI) Given 10/15/2021 11:27 AM FERMENTER OPERATOR 0.25 mg 0.25 mg, intravenous, Once, On Mon10/15/21 at 1130, For 1 dose [facility] IR[facility] [id number] onvansertib capsule 20 Given 12:20 PM FERMENTER OPERATOR 20 mg mg (PCM-075) 20 mg, oral, Once, On Mon10/15/21 at 1130, For 1 dose, This is the 20 [...] prior to liposomal irinotecan Infusion. [facility] IRB [id number] onvansertib capsule 5 Given 12:20 PM FERMENTER OPERATOR 5 mg mg (PCM-075) 5 mg, oral, Once, On Mon10/15/21 at 1130, For 1 dose, This is the 5 [...] chloride 0.9 % injection 10 mL Given 10/15/2021 2:39 PM FERMENTER OPERATOR 10 mL 10 mL, intra-catheter, As needed, line care, Starting on Mon10/15/21 at 1119, When IVAD Accessed and in Use: Flush prior to and following infusion, between multiple consecutive infusions, and prior to blood sampling. documented in this encounter Additional Health Concerns Assessment Noted Time PHQ-9 Depression Total Score: 2 10/01/2021 10:34 AM CS T documented as of this encounter Care Teams Oven 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
--- OUTSIDE RECORDS SUMMARY | 2022-06-18 16:06 | XMS_ITS | Encounter Summary ---
:1965 Author Organization [facility] Address [address] [place] [address] Care Team Providers Name Role Phone Elsewhere, Pcp Primary Care Provider Unavailable Reason for Referral MRI/CAT/PET Scan (Routine) - Closed Specialty Diagnoses / Procedures Referred By Contact Refer red To Contact Radiology Diagnoses Malignant Neoplasm Of Pancreas (HCC) Vladislav Zarco M.D. [facility] Procedures CT Abdomen Pelvis with IV Contrast HI CT ABD&PELVIS W CNTRST [address] [place], [place] [address] Referral ID Status Reason Start Date Expiration Date Visits Requ ested Visits Authorized [id number] Closed 10/15/2021 10/15/2022 1 1 SAWYER MRI/CAT/PET Scan (Routine) - Closed Specialty Diagnoses / Procedures Referred By Contact Refer red To Contact Radiology Diagnoses Malignant Neoplasm Of Pancreas (HCC) Vladislav Zaroc M.D. [facility] Procedures CT Chest with IV Contrast HI CT THORAX W CNTRST [address] [place], [place] [address] Referral ID Status Reason Start Date Expiration Date Visits Requ ested Visits Authorized [id number] Closed 10/15/2021 10/15/2022 1 1 SAWYER Encounter Details Date Type Department Care Team Description 10/15/2021 Orders Only Department of Oncology Tamara Escobar Malignant Neoplasm Of in [facility] [phone] Pancreas (HCC) (Primary [address] (Work) Dx) [place] [address] Social History Tobacco Use Types Packs/Day Years [...] often do you attend roman catholic or congregation services? Never 01/15/2021 Do you [...] Date Recorded Male 08/18/2021 2:55 PM GANG SAWYER documented as of this encounter Plan of Treatment Upcoming Encounters Date Type Specialty Care Team Description 06/22/2022 Lab Laboratory Medicine Maria Del Rosario Gomez AP RN, C.N.P., M.S. [address] [place] [phone] (Mj godoy) 06/22/2022 Infusion Oncology Maria Del Rosario Gomez APRN, C.N .P., M.S. [address] [place] [address] [phone] (Mj godoy) 06/29/2022 Lab Laboratory Medicine Maria Del Rosario Gomez AP RN, C.N.P., M.S. [address] [place] [address] [phone] (Mj godoy) 06/29/2022 Infusion Oncology Maria Del Rosario Gomez GUERO Sanchez, C.N .P., M.S. [address] [place], [place] [phone] (Wo rk) documented as of this encounter Results CT Abdomen Pelvis with IV Contrast (11/03/2021 4:57 PM GANG SAWYER) Anatomical Region Laterality Modality Abdomen, Pelvis, Abdominal RST LOS, N/A Comp uted Tomography, Computed Abdominal ARZ LOS, Abdominal FLA LOS Dileep ography Specimen (Source) Anatomical Collection Method Collection Time Re ceived Time Location / / Volume Laterality 11/03/2021 4:47 PM GANG SAWYER Impressions 11/04/2021 9:08 AM GANG SAWYER Interval changes compared to the CT study dated 08/13/2021 as detailed in the findings. Narrative 11/04/2021 9:08 AM GANG SAWYER REVISED REPORT: EXAM: ??CT ABDOMEN PELVIS WITH [...] Chest with IV Contrast (11/03/2021 4:57 PM GANG SAWYER) Anatomical Region Laterality Modality Chest, Thoracic RST LOS, Thoracic ARZ N/A Co mputed Tomography, Computed LOS, Thoracic ARZ LOS, Thoracic FLA Olivier graphy LOS Specimen (Source) Anatomical Collection Method Collection Time Re ceived Time Location / / Volume Laterality 11/03/2021 4:50 PM GANG SAWYER Impressions 11/03/2021 6:03 PM GANG SAWYER 1. Unchanged bilateral subcentimeter noncalcified solid pulmonary nodules. 2. This examination was performed in [facility] junction with a CT of the abdomen and pelvis, which will be reported separately. 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
--- OUTSIDE RECORDS SUMMARY | 2022-06-18 16:06 | XMS_ITS | Encounter Summary ---
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 [facility] Procedures CT Chest with IV Contrast VA CT THORAX W CNTRST [address] [place], [place] [address] Referral ID Status Reason Start Date Expiration Date Visits Requ ested Visits Authorized [id number] Closed 10/21/2021 10/21/2022 1 1 DRYER Outpatient (Routine) Specialty Diagnoses / Procedures Referred By Contact Refer red To Contact Oncology RST [facility] [address] [place], [place] [address] Referral ID Status Reason Start Date Expiration Date Visits Requ ested Visits Authorized DRYER Encounter Details Date Type Department Care Team Description 10/21/2021 Orders Only Department of Oncology Tamara Escobar Secondary Malignant Neoplasm Liver (HCC) (Primary Dx); in [facility] [phone] Malignant Neoplasm Of Pancre as (HCC) [address] [facility] (Work) [place] [phone] Social History Tobacco Use Types Packs/Day Years [...] How often do you attend mandaeism or presybeterian services? Never 01/15/2021 Do you [...] at Date Recorded Male 08/18/2021 2:55 PM CAN DRYER documented as of this encounter Plan of Treatment Upcoming Encounters Date Type Specialty Care Team Description 06/22/2022 Lab Laboratory Medicine Maria Del Rosario Gomez AP RN, C.N.P., M.S. [address] [place] [phone] (Wo rk) 06/22/2022 Infusion Oncology Maria Del Rosario Gomez APRN, C.N .P., M.S. [address] [place], [place] [phone] (Mj godoy) 06/29/2022 Lab Laboratory Medicine Maria Del Rosario Gomez AP RN, C.N.P., M.S. [address] [place] [phone] (Mj godoy) 06/29/2022 Infusion Oncology Maria Del Rosario Gomez APRN, C.N .Pamela., M.S. [address] [place] [address] [phone] (Mj godoy) Scheduled Referrals Name Type Priority Associated Order Schedule Diagnoses Oncology office Outpatient Referral Routine Secondary Malignan t Expected: visit (clinic) Neoplasm Liver 12/08/2021, General; GIH (HCC) Expires: Pancreatic Malignant Neoplasm 3 Of Pancreas (HCC) documented as of this encounter Results Miscellaneous Research, B (01/19/2022 8:28 AM CDT) P athologist Signature Number of 3 01/19/2022 S Specimens 8:28 AM CDT Specimen Anatomical Collection Method Collection Time Receive d Time (Source) Location / / Volume Laterality Varies (Blood, 01/19/2022 8:28 AM 022 8:28 Venous) CDT AM CDT Vladislav Zarco M.D. LAB RESEARCH NO RESULT VERENICE MCFADDEN Performing Organization Address City/State/ZIP Code Phon e Number [facility] - [address] [place], [place] [address] [place] [address] [facility] [address] [facility] [address] Abdomen Pelvis with IV Contrast (01/06/2022 [...] to include multiple tiny pulmonary nodules. Vladislav Zarco M.D. IMG CT PROCEDURES Miscellaneous Research, B (01/06/2022 7:16 AM CDT) athologist Signature Number of 3 01/06/2022 [facility] Specimens 7:16 AM CDT Specimen Anatomical Collection Method Collection Time Receive d Time (Source) Location / / Volume Laterality Varies (Blood, 01/06/2022 7:16 AM 022 7:16 Venous) CDT AM CDT Vladislav Zarco M.D. LAB RESEARCH NO RESULT ROUTI NG Performing Organization Address City/State/ZIP Code Phon e Number [facility] - [address] [place], [place] [address] [place] [address] [facility] [address] Miscellaneous Research, B (12/08/2021 7:56 AM CDT) P athologist Signature Number of 3 12/08/2021 [facility] Specimens 7:56 AM CDT Specimen Anatomical Collection Method Collection Time Receive d Time (Source) Location / / Volume Laterality Varies (Blood, 12/08/2021 7:56 AM 022 7:56 Venous) CDT AM CDT Vladislav Zarco M.D. LAB RESEARCH NO RESULT VERENICE NG Performing Organization Address City/[facility]/ZIP Code Phon e Number [facility] - [address] [place], [place] [address] [facility] [place] [address] ALT (Alanine Aminotransferase) (11/24/2021 6:42 AM CDT) [facility] Method Time Signature Alanine 49 7 - 55 11/24/2021 DTL Aminotransferase U/L 7:38 AM CDT (ALT), S Specimen Anatomical Collection Method Collection Time Receive d Time (Source) Location / / Volume Laterality Blood (Blood, 11/24/2021 6:42 AM 11/25/19 22 7:17 Venous) CDT AM CDT Vladislav Zarco M.D. LAB BLOOD ADD-ON Performing Organization Address City/State/ZIP Code Phon e Number [facility] - [address] [place], [place] [address] [facility] [place] [address] AST (Aspartate Aminotransferase) (11/24/2021 6:42 AM CDT) [facility] gist Method Time Signature Aspartate 36 8 - 48 11/24/2021 DTL Aminotransferase U/L 7:38 AM CDT (AST), S Specimen Anatomical Collection Method Collection Time Receive d Time (Source) Location / / Volume Laterality Blood (Blood, 11/24/2021 6:42 AM 11/25/19 22 7:16 Venous) CDT AM CDT Vladislav Zarco M.D. LAB BLOOD ADD-ON Performing Organization Address City/State/ZIP Code Phon e Number [facility] - [address] Bilirubin, Total (11/24/2021 6:42 AM CDT) athologist Signature Bilirubin, 0.5 <=1.2 mg/dL 11/24/2021 DTL Total, S 7:38 AM CDT Specimen Anatomical Collection Method Collection Time Receive d Time (Source) Location / / Volume Laterality Blood (Blood, 11/24/2021 6:42 AM 11/25/19 22 7:16 Venous) CDT AM CDT Vladislav Zarco M.D. LAB BLOOD ADD-ON Performing Organization Address City/[facility] Phon e Number [facility] - [address] (ABNORMAL) Alkaline Phosphatase (11/24/2021 6:42 AM CDT) athologist Signature Alkaline 186 (H) 40 - 129 11/24/2021 DTL Phosphatase, S U/L 7:38 AM CDT Specimen Anatomical Collection Method Collection Time Receive d Time (Source) Location / / Volume Laterality Blood (Blood, 11/24/2021 6:42 AM 11/25/19 22 7:16 Venous) CDT AM CDT Vladislav Zarco M.D. LAB BLOOD ADD-ON Performing Organization Address City/State/ZIP Code Phon e Number [facility] - [address] Magnesium (11/24/2021 6:42 AM CDT) athologist Signature Magnesium, S 2.0 1.7 - 2.3 11/24/2021 DTL mg/dL 7:38 AM CDT Specimen Anatomical Collection Method Collection Time Receive d Time (Source) Location / / Volume Laterality Blood (Blood, 11/24/2021 6:42 AM 11/25/19 22 7:16 Venous) CDT AM CDT Vladislav Zarco M.D. LAB BLOOD ADD-ON Performing Organization Address City/[facility] Phon e Number [facility] - [address] [place], [place] [address] [place], [place] [phone] [place] [address] Phosphorus Inorganic (11/24/2021 6:42 AM CDT) athologist Signature Phosphorus 4.3 2.5 - 4.5 11/24/2021 DTL (Inorganic), S mg/dL 7:38 AM CDT Specimen Anatomical Collection Method Collection Time Receive d Time (Source) Location / / Volume Laterality Blood (Blood, 11/24/2021 6:42 AM 11/25/19 22 7:16 Venous) CDT AM CDT Vladislav Zarco M.D. LAB BLOOD ADD-ON Performing Organization Address City/[facility]/ZIP [facility] Phon e Number [facility] - [address] [place], [place] [address] [place] [address] Albumin (11/24/2021 6:42 AM CDT) athologist Signature Albumin, S 4.2 3.5 - 5.0 11/24/2021 DTL g/dL 7:38 AM CDT Specimen Anatomical Collection Method Collection Time Receive d Time (Source) Location / / Volume Laterality Blood (Blood, 11/24/2021 6:42 AM 11/25/19 22 7:16 Venous) CDT AM CDT Vladislav Zarco M.D. LAB BLOOD ADD-ON Performing Organization Address City/[facility]/ZIP [facility] Phon e Number [facility] - [address] [place], [place] [address] [place] [address] Basic Metabolic Panel (11/24/2021 6:42 AM CDT) athologist Signature Potassium, S 4.1 3.6 - [...] 11/24/2021 DTL Black/ mL/min/BSA 7:38 AM CDT Chadian Comment: ----ADDITIONAL INFORMATION---- Estimated GFR calculated using [...] Address City/State/ZIP Code Phon e Number [facility] - [address] [place], [place] [address] [facility] [place] [address] [facility] [address] (ABNORMAL) CBC with Differential, Blood (11/24/2021 6:42 AM CDT) [facility] Method Time Signature Hemoglobin 11.9 (L) 13.2 [...] Address City/State/ZIP Code Phon e Number [facility] - [address] [place] [address] [facility] [place] [address] [facility] 200 [facility] Miscellaneous Research, B (11/03/2021 3:23 PM CAN DRYER) P athologist Signature Number of 3 11/03/2021 HSS Specimens 3:23 PM CAN DRYER Specimen Anatomical Collection Method Collection Time Receive d Time (Source) Location / / Volume Laterality Varies (Blood, 11/03/2021 3:23 PM 022 3:23 Venous) CAN DRYER PM CAN DRYER Vladislav Zarco M.D. LAB RESEARCH NO RESULT VERENICE MCFADDEN Performing Organization Address City/State/ZIP Code Phon e Number [facility] - [address] [place], [place] [address] [place] [address] [facility] [address] documented in this encounter Visit Diagnoses Diagnosis Secondary Malignant Neoplasm Liver (HCC) - Primary Malignant Neoplasm Of Pancreas (HCC) Secondary Malignant Neoplasm Liver (HCC) Malignant Neoplasm Of Pancreas (HCC) documented in this encounter Additional Health Concerns Infection Onset Date Last Indicated Resolved Time COVID19 Pending 10/24/2021 10/24/2021 10/24/2021 8:21 AM CAN DRYER Assessment Noted Time PHQ-9 Depression Total Score: 2 10/01/2021 10:34 AM CS T documented as of this encounter Care Teams Rustic Fence Builder Relationship Specialty Start Date End Date Elsewhere, Pcp PCP - General Family Medicine 08/12/20 documented as of this encounter
--- OUTSIDE RECORDS SUMMARY | 2022-06-18 16:06 | XMS_ITS | Encounter Summary ---
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 Rst Onc Rogo Procedures [place] ONDANSETRON HCL INJECTION [place] DEXAMETHASONE SODIUM PHOS [place] LEUCOVORIN CALCIUM INJECTION [place] PALONOSETRON HCL [place] INJ IRINOTECAN LIPOSOME 1 MG [place] FLUOROURACIL INJECTION [address] [place] [address] [place] [phone] Referral ID Status Reason Start Date Expiration Date Visits Requ ested Visits Authorized [id number] Closed 08/27/2021 08/27/2022 18 18 Encounter Details Date Type Department Care Team Description 10/15/2021 Lab Department of Laboratory Everette Zarco rt Secondary Malignant Neoplasm Liver (HCC) (Primary Dx); Medicine and Pathology, R, M.D. Malignant Neoplasm Of Pancreas (HCC); [place] [address] [place] [address] [place] [phone] [place] [address] [phone] Social History Tobacco Use Types Packs/Day Years [...] often do you attend roman catholic or mu-ism services? Never 01/15/2021 Do you [...] Date Recorded Male 08/18/2021 2:55 PM RN TRIAGE documented as of this encounter Plan of Treatment Upcoming Encounters Date Type Specialty Care Team Description 06/22/2022 Lab Laboratory Medicine Maria Del Rosario Gomez AP RN, C.N.P., M.S. [address] [place] [phone] (Mj godoy) 06/22/2022 Infusion Oncology Maria Del Rosario Gomez APRN, C.N .P., M.S. [address] [place] [phone] (Mj godoy) 06/29/2022 Lab Laboratory Medicine Maria Del Rosario Gomez AP RN, C.N.P., M.S. [address] [place] [phone] (Mj godoy) 06/29/2022 Infusion Oncology Maria Del Rosario Gomez APRN, C.N .P., M.S. [address] [place] [phone] (Mj godoy) documented as of this encounter Procedures Procedure Name Priority Date/Time Associated Comments Diagnosis CBC WITH DIFFERENTIAL, B Routine 10/15/2021 8:00 Secondary Results for this AM RN TRIAGE Malignant Neoplasm procedure are in Liver (HCC) the results Malignant Neoplasm section. Of Pancreas (HCC) ALANINE AMINOTRANSFERASE Routine 10/15/2021 8:00 Secondary Results for this (ALT), S/P AM RN TRIAGE Malignant Neoplasm procedure are in Liver (HCC) the results Malignant Neoplasm section. Of Pancreas (HCC) ASPARTATE Routine 10/15/2021 8:00 Secondary Results for this AMINOTRANSFERASE (AST), AM RN TRIAGE Malignant Neoplas m procedure are in S/P Liver (HCC) the results Malignant Neoplasm section. Of Pancreas (HCC) PHOSPHORUS (INORGANIC), Routine 10/15/2021 8:00 Secondary R esults for this S AM RN TRIAGE Malignant Neoplasm procedure are in Liver (HCC) the results Malignant Neoplasm section. Of Pancreas (HCC) ALKALINE PHOSPHATASE, Routine 10/15/2021 8:00 Secondary Res ults for this S/P AM RN TRIAGE Malignant Neoplasm procedure are in Liver (HCC) the results Malignant Neoplasm section. Of Pancreas (HCC) MAGNESIUM, S Routine 10/15/2021 8:00 Secondary Results for this AM RN TRIAGE Malignant Neoplasm procedure are in Liver (HCC) the results Malignant Neoplasm section. Of Pancreas (HCC) BILIRUBIN, TOT, S/P Routine 10/15/2021 8:00 Secondary Resul ts for this AM RN TRIAGE Malignant Neoplasm procedure are in Liver (HCC) the results Malignant Neoplasm section. Of Pancreas (HCC) ALBUMIN, S/P Routine 10/15/2021 8:00 Secondary Results for this AM RN TRIAGE Malignant Neoplasm procedure are in Liver (HCC) the results Malignant Neoplasm section. Of Pancreas (HCC) BASIC METABOLIC PANEL, Routine 10/15/2021 8:00 Secondary Re sults for this S/P AM RN TRIAGE Malignant Neoplasm procedure are in Liver (HCC) the results Malignant Neoplasm section. Of Pancreas (HCC) documented in this encounter Results ALT (Alanine Aminotransferase) (10/15/2021 8:00 AM RN TRIAGE) [facility] gist Method Time Signature Alanine 25 7 - 55 10/15/2021 DTL Aminotransferase U/L 9:07 AM RN TRIAGE (ALT), S Specimen Anatomical Collection Method Collection Time Receive d Time (Source) Location / / Volume Laterality Blood (Blood, 10/15/2021 8:00 AM 10/15/19 8:45 Venous) RN TRIAGE AM RN TRIAGE Vladislav Zarco M.D. LAB BLOOD ADD-ON Performing Organization Address City/[facility] Phon e Number [facility] - [address] [place] [address] [place] [address] [facility] AST (Aspartate Aminotransferase) (10/15/2021 8:00 AM RN TRIAGE) Patholo gist Method Time Signature Aspartate 21 8 - 48 10/15/2021 METH Aminotransferase U/L 8:33 AM RN TRIAGE (AST), P Specimen Anatomical Collection Method Collection Time Receive d Time (Source) Location / / Volume Laterality Blood (Blood, 10/15/2021 8:00 AM 10/15/19 8:06 Venous) RN TRIAGE AM RN TRIAGE Vladislav Zarco M.D. LAB BLOOD ADD-ON Performing Organization Address City/[facility] Phon e Number [facility] - [address] [place], [place] [id number] [place] [address] First [facility] Bilirubin, Total (10/15/2021 8:00 AM RN TRIAGE) P athologist Signature Bilirubin, 0.3 <=1.2 mg/dL 10/15/2021 METH Total, P 8:33 AM RN TRIAGE Specimen Anatomical Collection Method Collection Time Receive d Time (Source) Location / / Volume Laterality Blood (Blood, 10/15/2021 8:00 AM 10/15/19 22 8:06 Venous) RN TRIAGE AM RN TRIAGE Vladislav Zarco M.D. LAB BLOOD ADD-ON Performing Organization Address City/State/[facility] Phon e Number [facility] - [address] [place], [place] [address] [facility] [place], [place] [phone] [place] [address] (ABNORMAL) Alkaline Phosphatase (10/15/2021 8:00 AM RN TRIAGE) P athologist Signature Alkaline 135 (H) 40 - 129 10/15/2021 DTL Phosphatase, S U/L 9:07 AM RN TRIAGE Specimen Anatomical Collection Method Collection Time Receive d Time (Source) Location / / Volume Laterality Blood (Blood, 10/15/2021 8:00 AM 02/04/20 22 8:45 Venous) RN TRIAGE AM RN TRIAGE Vladislav Zarco M.D. LAB BLOOD ADD-ON Performing Organization Address City/State/ZIP Code Phon e Number [facility] - [address] [place], [place] [address] [facility] [place] [address] [facility] 200 [address] [facility] Magnesium (10/15/2021 8:00 AM RN TRIAGE) P athologist Signature Magnesium, S 2.1 1.7 - 2.3 10/15/2021 DTL mg/dL 9:07 AM RN TRIAGE Specimen Anatomical Collection Method Collection Time Receive d Time (Source) Location / / Volume Laterality Blood (Blood, 10/15/2021 8:00 AM 10/15/19 8:45 Venous) RN TRIAGE AM RN TRIAGE Vladislav Zarco M.D. LAB BLOOD ADD-ON Performing Organization Address City/[facility]/ZIP Code Phon e Number [facility] - [address] [place], [place] [address] [facility] [place] [address] [place] [address] [facility] Phosphorus Inorganic (10/15/2021 8:00 AM RN TRIAGE) P athologist Signature Phosphorus 4.1 2.5 - 4.5 10/15/2021 DTL (Inorganic), S mg/dL 9:07 AM RN TRIAGE Specimen Anatomical Collection Method Collection Time Receive d Time (Source) Location / / Volume Laterality Blood (Blood, 10/15/2021 8:00 AM 10/15/19 8:45 Venous) RN TRIAGE AM RN TRIAGE Vladislav Zarco M.D. LAB BLOOD ADD-ON Performing Organization Address City/State/ZIP Code Phon e Number [facility] - [address] [place], [place] [address] [place], [place] [phone] [place] [address] 200 [facility] Albumin (10/15/2021 8:00 AM RN TRIAGE) P athologist Signature Albumin, S 4.3 3.5 - 5.0 10/15/2021 DTL g/dL 9:07 AM RN TRIAGE Specimen Anatomical Collection Method Collection Time Receive d Time (Source) Location / / Volume Laterality Blood (Blood, 10/15/2021 8:00 AM 10/15/19 8:45 Venous) RN TRIAGE AM RN TRIAGE Vladislav Zarco M.D. LAB BLOOD ADD-ON Performing Organization Address City/State/ZIP Code Phon e Number [facility] - [address] [place], [place] [address] [facility] [place] [address] Laboratories-[facility] [address] Basic Metabolic Panel (10/15/2021 8:00 AM RN TRIAGE) P athologist Signature Potassium, P 3.9 3.6 - 5.2 10/15/2021 METH mmol/L 8:33 AM RN TRIAGE Sodium, P 142 135 - 145 10/15/2021 METH mmol/L 8:33 AM RN TRIAGE Chloride, P 106 98 - 107 10/15/2021 METH mmol/L 8:33 AM RN TRIAGE Bicarbonate, P 24 22 - 29 10/15/2021 METH mmol/L 8:33 AM RN TRIAGE Anion Gap, P 12 7 - 15 10/15/2021 METH 8:33 AM RN TRIAGE BUN (Blood Urea 12 8 - 24 10/15/2021 METH Nitrogen), P mg/dL 8:33 AM RN TRIAGE Creatinine 0.89 0.74 - 10/15/2021 METH 1.35 mg/dL 8:33 AM RN TRIAGE eGFR-Black/Afric >90 >=60 10/15/2021 METH an Turkish mL/min/BSA 8:33 AM RN TRIAGE Comment: ----ADDITIONAL INFORMATION---- Estimated GFR calculated using the 2009 CKD_EPI creatinine equation. eGFR Non-Black/ >90 >=60 mL/min/BSA 10/15/2021 8:33 AM RN TRIAGE METH Comment: ----ADDITIONAL INFORMATION---- Estimated GFR calculated using the 2009 CKD_EPI creatinine equation. Calcium, Total, P 9.1 8.6 - 10.0 mg/dL 10/15/2021 8:33 AM RN TRIAGE METH Glucose, P 96 70 - 140 mg/dL 10/15/2021 8:33 AM RN TRIAGE M ETH Specimen Anatomical Collection Method Collection Time Receive d Time (Source) Location / / Volume Laterality Blood (Blood, 10/15/2021 8:00 AM 10/15/19 8:06 Venous) RN TRIAGE AM RN TRIAGE Vladislav Zarco M.D. LAB BLOOD ADD-ON Performing Organization Address City/State/ZIP Code Phon e Number [facility] - 200 [place], [place] [address] [facility] [place] [address] Laboratories-[facility] [address] [facility] (ABNORMAL) CBC with Differential, Blood (10/15/2021 8:00 AM RN TRIAGE) [facility] gist Method Time Signature Hemoglobin 11.8 (L) 13.2 - 10/15/2021 DTL 16.6 g/dL 8:33 AM RN TRIAGE Hematocrit 37.2 (L) 38.3 - 10/15/2021 DTL 48.6 % 8:33 AM RN TRIAGE Erythrocytes 4.37 4.35 - 10/15/2021 DTL 5.65 8:33 AM RN TRIAGE x10(12)/L MCV 85.1 78.2 - 10/15/2021 DTL 97.9 fL 8:33 AM RN TRIAGE RBC Distrib Width 15.7 (H) 11.8 - 10/15/2021 DTL 14.5 % 8:33 AM RN TRIAGE Platelet Count 147 135 - 317 10/15/2021 DTL x10(9)/L 8:33 AM RN TRIAGE Leukocytes 3.9 3.4 - 9.6 10/15/2021 DTL x10(9)/L 8:33 AM RN TRIAGE Neutrophils 2.76 1.56 - 10/15/2021 DTL 6.45 8:33 AM RN TRIAGE x10(9)/L Lymphocytes 0.51 (L) 0.95 - 10/15/2021 DTL 3.07 8:33 AM RN TRIAGE x10(9)/L Monocytes 0.46 0.26 - 10/15/2021 DTL 0.81 8:33 AM RN TRIAGE x10(9)/L Eosinophils 0.12 0.03 - 10/15/2021 DTL 0.48 8:33 AM RN TRIAGE x10(9)/L Basophils <0.03 0.01 - 10/15/2021 DTL 0.08 8:33 AM RN TRIAGE x10(9)/L Specimen Anatomical Collection Method Collection Time Receive d Time (Source) Location / / Volume Laterality Blood (Blood, 10/15/2021 8:00 AM 10/15/19 8:25 Venous) RN TRIAGE AM RN TRIAGE Vladislav Zarco M.D. LAB BLOOD ADD-ON Performing Organization Address City/State/ZIP Code Phon e Number [facility] - [address] [place], [place] [address] [facility] [place] [address] Laboratories-[facility] [address] documented in this encounter Visit Diagnoses Diagnosis Secondary Malignant Neoplasm Liver (HCC) - Primary Malignant Neoplasm Of Pancreas (HCC) Bacteremia documented in this encounter Administered Medications Inactive Administered Medications - up to 3 most recent administrations Medication Order MAR Action Action Date Dose Rate Site heparin flush 500 Units Given 10/15/2021 7:57 AM RN TRIAGE 500 Units 500 Units, intra-catheter, As needed, line care, Starting on Mon10/15/21 at 0744, When no infusion to maintain patency: For IVAD accessed, not in use, and/or prior to hospital discharge, flush every 7 days after 0.9% preservative-free NaCL flush. For IVAD NOT accessed or used, flush every 4 weeks after 0.9% preservative-free NaCL flush. sodium chloride 0.9 % injection 10 mL Given 10/15/2021 7:56 AM RN TRIAGE 10 mL 10 mL, intra-catheter, As needed, line care, Starting on Mon10/15/21 at 0744, When IVAD Accessed and in Use: Flush prior to and following infusion, between multiple consecutive infusions, and prior to blood sampling. sodium chloride 0.9 % injection 20 mL Given 10/15/2021 7:57 AM RN TRIAGE 20 mL 20 mL, intra-catheter, As needed, line care, Starting on Mon10/15/21 at 0744, When IVAD Accessed and in Use: Flush post blood transfusion or post blood sampling. documented in this encounter Additional Health Concerns Assessment Noted Time PHQ-9 Depression Total Score: 2 10/01/2021 10:34 AM CS T documented as of this encounter Care Teams Sound Effects Person Relationship Specialty Start Date End Date Elsewhere, Pcp PCP - General Family Medicine 08/12/20 documented as of this encounter
--- OUTSIDE RECORDS SUMMARY | 2022-06-18 16:06 | XMS_ITS | Encounter Summary ---
:1965 Author Organization [facility] Address [address] [place] [address] Care Team Providers Name Role Phone Elsewhere, Pcp Primary Care Provider Unavailable Encounter Details Date Type Department Care Team Description 10/25/2021 Documentation Department of Oncology in [place], [place] M.B.B.S. [address] [facility] [address] [place] [phone] [place], [place] [phone] (Wo rk) Social History Tobacco Use Types [...] How often do you attend mormon or jehovah's witness services? 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 - 10/25/2021 4:48 AM CST This note was created for the purpose of closing encounter. NICS SYSTEMS INTEGRATION SPECIALIST documented in this encounter Nursing Notes George Iqbal M.B.B.S. - 10/25/2021 4:48 AM CST Patient called in stating that today morning he woke up with recurrence of abdominal pain, abdominaldistention and vomiting. He is unable to pass any gas. The symptoms are similar to when he initiallypresented to hospital and much worse. Patient likely has symptoms due to return of intestinal obstruction. Patient is also wondering the pain was mast in the hospital by the pain medications that he was getting. I instructed the patient t o present to the [facility] ED for evaluation. Patient expressed understanding. I call the admission transfer center and provided sign out. He will be coming by private way could. Is depending on bed availability, could be admitted to the oncology service at [facility] or to a medicine service with oncology consult. NICS SYSTEMS INTEGRATION SPECIALIST documented in this encounter Plan of Treatment Upcoming Encounters Date Type Specialty Care Team Description 06/22/2022 Lab Laboratory Medicine Maria Del Rosario Gomez AP RN, C.N.P., M.S. [address] [place] [phone] (Mj godoy) 06/22/2022 Infusion Oncology Maria Del Rosario Gomez APRN, C.N .P., M.S. [address] [place] [phone] (Mj godoy) 06/29/2022 Lab Laboratory Medicine Maria Del Rosario Gomez AP RN, C.N.P., M.S. [address] [place] [phone] (Wo rk) 06/29/2022 Infusion Oncology Maria Del Rosario Gomez, GUERO, C.N .P., M.S. [address] [place], [place] [phone] (Wo rk) documented as of this encounter Visit Diagnoses Not on filedocumented in this encounter Additional Health Concerns Assessment Noted Time PHQ-9 Depression Total Score: 2 10/01/2021 10:34 AM CS T documented as of this encounter Care Teams Blast Furnace Operator Relationship Specialty Start Date End Date Elsewhere, Pcp PCP - General Family Medicine 08/12/20 documented as of this encounter
--- OUTSIDE RECORDS SUMMARY | 2022-06-18 16:06 | XMS_ITS | Encounter Summary ---
:1965 Author Organization [facility] Address [address] [place] [address] Care Team Providers Name Role Phone Elsewhere, Pcp Primary Care Provider Unavailable Encounter Details Date Type Department Care Team Description 10/27/2021 Orders Only Department of Oncology Tamara Escobar Malignant Neoplasm Of in [facility] [phone] Pancreas (HCC) (Primary [address] [facility] (Work) Dx) [place] [address] Social History Tobacco Use Types Packs/Day Years [...] How often do you attend sikh or restorationism services? 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 [address] [place] [phone] (Wo rk) 06/22/2022 [facility] C.N .P., M.S. [address] [place] [phone] (Mj rk) 06/29/2022 Lab [facility], C.N.P., M.S. [address] [place] [phone] (Mj rk) 06/29/2022 [facility] C.N .P., M.S. [address] [place] [phone] (Mj rk) documented as of this encounter Visit Diagnoses Diagnosis Malignant Neoplasm Of Pancreas (HCC) - P rimary documented in this encounter Additional Health Concerns Assessment Noted Time PHQ-9 Depression Total Score: 2 10/01/2021 10:34 AM CS T documented as of this encounter Care Teams Scheduling Assistant Relationship Specialty Start Date End Date Elsewhere, Pcp PCP - General Family Medicine 08/12/20 documented as of this encounter
--- OUTSIDE RECORDS SUMMARY | 2022-06-18 16:06 | XMS_ITS | Encounter Summary ---
:1965 Author Organization [facility] Address [address] [place] [address] Care Team Providers Name Role Phone Elsewhere, Pcp Primary Care Provider Unavailable Reason for Visit Reason Comments Sx-stomach discomfort Encounter Details Date Type Department Care Team Description 10/22/2021 Clinical Department of [place]ffic[place], Sx-stomach Communication Oncology in [facility] [address] [facility] [address] [place] [phone] Social History Tobacco Use Types Packs/Day Years [...] er 01/15/2021 How often do you attend yazidism or spiritism services? 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 - 10/22/2021 3:57 PM CST Information Discussed I spoke with Mr. Campbell and informed him that we will let the providers at his local emergency room decide the course for his care right now. They are able to best assess his situation being with him. He was understanding of this. He is being treated with nausea and pain medication in the emergency room. He wanted to call and inform us that the roads do not permit the ambulances to currently bring him to [place]. He will continue working with the doctors in his local emergency room. I told him we would continue to follow his chart and review on Monday morning. PLAN Disposition/Recommendation: Continue management in ED Information/Education: patient/caller able to teach back Caller agreeable to plan of care: yes The following references were used: nursing clinical judgement LY SUPPORT WORKER Telephone Encounter - Marcela Albright - 10/22/2021 3:24 PM CST Do we have a valid auth to speak with caller? yes Reason for call: Patient called back. He is at local ED. They can't do the scan there. He said that they are unable to bring him to [facility] because the ambulances aren't moving right now. He is asking if he can speak to Emma again. Please call patient back. Thank you, Marcela RST ONC [facility] MED Aa POD 1 LY SUPPORT WORKER Telephone Encounter - Emma Mora R.N. - 10/22/2021 1:21 PM CST Information Discussed Patient states that typically he would feel better starting around Monday after his treatment. The past two days he reports that he has been forcing food down. He reports eating half or less of the intake he would normally have. He reports that his stools after softer, but formed. He denies any diarrhea currently. He reports that he is just drinking water. He is drinking around two, 32 ounce glasses of water per day. He rates his pain today as a 7 on a scale of 1-10. He describes having this pain for several days now. He is concerned that his biliary stent may be obstructed due to the symptoms he is having being similar to the symptoms he had when he was previously obstructed. PLAN He will report to the local emergency department in [place], [place]. I will send this information Disposition/Recommendation: recommended to report to the nearest emergency department and recommended not to drive self Information/Education: patient/caller able to teach back Caller agreeable to plan of care: yes The following references were used: nursing clinical judgement LY SUPPORT WORKER Telephone Encounter - Patricia Novoa - 10/22/2021 12:35 PM CST Do we have a valid auth to speak with caller? yes Reason for call: he is complaining of stomach pains he has had for last 2 days. He believes the stent needs to be flushed. Thank you, Mireya RST ONC [facility] AA POD 1 LY SUPPORT WORKER documented in this encounter Plan of Treatment Upcoming Encounters Date Type Specialty Care Team Description 06/22/2022 Lab Laboratory Medicine Maria Del Rosario Gomez AP RN, C.N.P., M.S. [address] [place] [phone] (Mj godoy) 06/22/2022 Infusion Oncology Maria Del Rosario Gomez APRN, C.N .P., M.S. [address] [place] [phone] (Mj godoy) 06/29/2022 Lab Laboratory Medicine Maria Del Rosario Gomez AP RN, C.N.P., M.S. [address] [place] [phone] (Mj godoy) 06/29/2022 Infusion Oncology Maria Del Rosario Gomez APRN, C.N .P., M.S. [address] [place], [place] [phone] (Wo rk) documented as of this encounter Visit Diagnoses Not on filedocumented in this encounter Additional Health Concerns Assessment Noted Time PHQ-9 Depression Total Score: 2 10/01/2021 10:34 AM CS T documented as of this encounter Care Teams Parking Manager Relationship Specialty Start Date End Date Elsewhere, Pcp PCP - General Family Medicine 08/12/20 documented as of this encounter
--- OUTSIDE RECORDS SUMMARY | 2022-06-18 16:07 | XMS_ITS | Encounter Summary ---
:1965 Author Organization [facility] Address [address] [place] [address] Care Team Providers Name Role Phone Elsewhere, Pcp Primary Care Provider Unavailable Encounter Details Date Type Department Care Team Description 09/17/2021 Orders Only Department of Oncology in [place] Core[place] Remy [place], [place] [address] [place] [phone] Social History Tobacco Use Types Packs/Day [...] often do you attend roman catholic or mormonism services? 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 [address] [place] [address] [phone] (Mj godoy) 06/22/2022 Infusion Oncology Maria Del Rosario Gomez APRN, C.N .P., M.S. [address] [place] [address] [phone] (Mj godoy) 06/29/2022 Lab Laboratory Medicine Maria Del Rosario Gomez AP RN, C.N.P., M.S. [address] [place] [address] [phone] (Mj godoy) 06/29/2022 Infusion Oncology Maria Del Rosario Gomez APRN, C.N .P., M.S. [address] [place] [address] [phone] (Mj godoy) documented as of this encounter Visit Diagnoses Not on filedocumented in this encounter Care Teams Chemistry Tutor Relationship Specialty Start Date End Date Elsewhere, Pcp PCP - General Family Medicine 08/12/20 documented as of this encounter
--- OUTSIDE RECORDS SUMMARY | 2022-06-18 16:07 | XMS_ITS | Encounter Summary ---
:1965 Author Organization [facility] Address [address] [place] [address] Care Team Providers Name Role Phone Elsewhere, Pcp Primary Care Provider Unavailable Encounter Details Date Type Department Care Team Description 10/01/2021 Orders Only Department of Oncology Imelda Mir, Secondary Malignant Neoplasm Liver (HCC) (Primary Dx); in [facility] Malignant Neoplasm Of Pancreas (HCC) [address] [place] [phone] Social History Tobacco Use Types Packs/Day Years [...] er 01/15/2021 How often do you attend faith or islam services? 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 [address] [place] [address] [phone] (Wo rk) 06/22/2022 Infusion Oncology Maria Del Rosario Gomez APRN, C.N .P., M.S. [address] [place] [address] [phone] (Wo rk) 06/29/2022 Lab Laboratory Medicine Maria Del Rosario Gomez AP RN, C.N.P., M.S. [address] [place] [address] [phone] (Wo rk) 06/29/2022 Infusion Oncology Maria Del Rosario Gomez APRN, C.N .P., M.S. [address] [place] [address] [phone] (Wo rk) documented as of this encounter Visit Diagnoses Diagnosis Secondary Malignant Neoplasm Liver (HCC) - Primary Malignant Neoplasm Of Pancreas (HCC) documented in this encounter Additional Health Concerns Assessment Noted Time PHQ-9 Depression Total Score: 2 10/01/2021 10:34 AM CS T documented as of this encounter Care Teams Label Rewinder Relationship Specialty Start Date End Date Elsewhere, Pcp PCP - General Family Medicine 08/12/20 documented as of this encounter
--- OUTSIDE RECORDS SUMMARY | 2022-06-18 16:07 | XMS_ITS | Encounter Summary ---
:1965 Author Organization [facility] Address [address] [place] [address] Care Team Providers Name Role Phone Elsewhere, Pcp Primary Care Provider Unavailable Reason for Visit Episode Based Medications (Routine) - Closed Specialty Diagnoses / Procedures Referred By Contact Refer red To Contact Diagnoses Malignant Neoplasm Of Pancreas (HCC) Secondary Malignant Neoplasm Liver (HCC) Deborah Murray M.B.B.S. Rst Onc Rogo Procedures MA ONDANSETRON HCL INJECTION MA DEXAMETHASONE SODIUM PHOS MA LEUCOVORIN CALCIUM INJECTION MA PALONOSETRON HCL MA INJ IRINOTECAN LIPOSOME 1 MG MA FLUOROURACIL INJECTION [address] [facility] [address] [place] [phone] Referral ID Status Reason Start Date Expiration Date Visits Requ ested Visits Authorized [id number] Closed 08/27/2021 08/27/2022 18 18 Encounter Details Date Type Department Care Team Description 09/24/2021 Lab Department of Infusion Vladislav Zarco Secondary Malignant Neoplasm Liver (HCC) (Primary Dx); Therapy in Randall Perdomo M.D. Malignant Neoplasm Of Pancreas (HCC); [place] [address] [facility] Bacteremia [address] [place] [phone] (Wo rk) Social History Tobacco Use Types [...] er 01/15/2021 How often do you attend mosque or church services? 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 [address] [place] [address] [phone] (Mj godoy) 06/22/2022 Infusion Oncology Maria Del Rosario Gomez APRN, C.N .P., M.S. [address] [place] [address] [phone] (Mj rk) 06/29/2022 Lab Laboratory Medicine Maria Del Rosario Gomez AP RN, C.N.P., M.S. [address] [place] [address] [phone] (Mj rk) 06/29/2022 Infusion Oncology Maria Del Rosario Gomez APRN, C.N .P., M.S. [address] [place] [address] [phone] (Mj rk) documented as of this encounter Procedures Procedure Name Priority Date/Time Associated Comments Diagnosis CBC WITH DIFFERENTIAL, Routine 09/24/2021 10:07 Secondary Rachel gnant Results for this B AM STRIPPER AND PRINTER Neoplasm Liver procedure are in (HCC) the results Malignant Neoplasm section. Of Pancreas (HCC) COMPREHENSIVE Routine 09/24/2021 10:07 Malignant Neoplasm Resu lts for this METABOLIC PANEL, S/P AM STRIPPER AND PRINTER Of Pancreas (HCC) pr ocedure are in the results section. documented in this encounter Results (ABNORMAL) Comprehensive Metabolic Panel (09/24/2021 10:07 AM STRIPPER AND PRINTER) P athologist Signature Potassium, S 4.2 3.6 - 5.2 09/24/2021 DTL mmol/L 11:23 AM STRIPPER AND PRINTER Sodium, S 139 135 - 145 09/24/2021 DTL mmol/L 11:23 AM STRIPPER AND PRINTER Chloride, S 103 98 - 107 09/24/2021 DTL mmol/L 11:23 AM STRIPPER AND PRINTER Bicarbonate, S 28 22 - 29 09/24/2021 DTL mmol/L 11:23 AM STRIPPER AND PRINTER Anion Gap 8 7 - 15 09/24/2021 DTL 11:23 AM STRIPPER AND PRINTER BUN (Blood Urea 16 8 - 24 09/24/2021 DTL Nitrogen), S mg/dL 11:23 AM STRIPPER AND PRINTER Creatinine 0.95 0.74 - 09/24/2021 DTL 1.35 mg/dL 11:23 AM STRIPPER AND PRINTER eGFR-Non 88 >=60 09/24/2021 DTL Black/ mL/min/BSA 11:23 AM STRIPPER AND PRINTER Gibraltarian Comment: ----ADDITIONAL INFORMATION---- Estimated GFR calculated using the 2009 CKD_EPI creatinine equation. eGFR-Black/ >90 >=60 mL/min/BSA 2021 11:23 AM STRIPPER AND PRINTER DTL Comment: ----ADDITIONAL INFORMATION---- Estimated GFR calculated using the 2009 CKD_EPI creatinine equation. Calcium, Total, S 8.9 8.6 - 10.0 mg/dL 09/24/2021 11:2 3 AM STRIPPER AND PRINTER DTL Glucose, S 87 70 - 140 mg/dL 09/24/2021 11:23 AM STRIPPER AND PRINTER DTL Protein, Total, S 6.6 6.3 - 7.9 g/dL 09/24/2021 11:23 AM STRIPPER AND PRINTER DTL Albumin, S 4.2 3.5 - 5.0 g/dL 09/24/2021 11:23 AM STRIPPER AND PRINTER DTL Aspartate Aminotransferase 22 8 - 48 U/L 09/24/2021 1 1:23 AM STRIPPER AND PRINTER DTL (AST), S Alkaline Phosphatase, S 166 (H) 40 - 129 U/L 09/24/2021 11 :23 AM STRIPPER AND PRINTER DTL Alanine Aminotransferase 54 7 - 55 U/L 09/24/2021 11: 23 AM STRIPPER AND PRINTER DTL (ALT), S Bilirubin, Total, S 0.5 <=1.2 mg/dL 09/24/2021 11:23 A M STRIPPER AND PRINTER DTL Specimen Anatomical Collection Method Collection Time Receive d Time (Source) Location / / Volume Laterality Blood (Blood, 09/24/2021 10:07 09/24/2021 Venous) AM STRIPPER AND PRINTER 11:03 AM STRIPPER AND PRINTER Vladislav Zarco M.D. LAB BLOOD ADD-ON Performing Organization Address City/State/[facility] Code Phon e Number [facility] - [address] [place], [place] [address] [facility] [place] [address] [facility] [address] [facility] (ABNORMAL) CBC with Differential, Blood (09/24/2021 10:07 AM STRIPPER AND PRINTER) [facility] gist Method Time Signature Hemoglobin 11.9 (L) 13.2 - 09/24/2021 DTL 16.6 g/dL 10:53 AM STRIPPER AND PRINTER Hematocrit 35.8 (L) 38.3 - 09/24/2021 DTL 48.6 % 10:53 AM STRIPPER AND PRINTER Erythrocytes 4.31 (L) 4.35 - 09/24/2021 DTL 5.65 10:53 AM STRIPPER AND PRINTER x10(12)/L MCV 83.1 78.2 - 09/24/2021 DTL 97.9 fL 10:53 AM STRIPPER AND PRINTER RBC Distrib Width 13.6 11.8 - 09/24/2021 DTL 14.5 % 10:53 AM STRIPPER AND PRINTER Platelet Count 196 135 - 317 09/24/2021 DTL x10(9)/L 10:53 AM STRIPPER AND PRINTER Leukocytes 2.0 (L) 3.4 - 9.6 09/24/2021 DTL x10(9)/L 10:53 AM STRIPPER AND PRINTER Neutrophils 1.17 (L) 1.56 - 09/24/2021 DTL 6.45 10:53 AM STRIPPER AND PRINTER x10(9)/L Lymphocytes 0.49 (L) 0.95 - 09/24/2021 DTL 3.07 10:53 AM STRIPPER AND PRINTER x10(9)/L Monocytes 0.14 (L) 0.26 - 09/24/2021 DTL 0.81 10:53 AM STRIPPER AND PRINTER x10(9)/L Eosinophils 0.17 0.03 - 09/24/2021 DTL 0.48 10:53 AM STRIPPER AND PRINTER x10(9)/L Basophils <0.03 0.01 - 09/24/2021 DTL 0.08 10:53 AM STRIPPER AND PRINTER x10(9)/L Specimen Anatomical Collection Method Collection Time Receive d Time (Source) Location / / Volume Laterality Blood (Blood, 09/24/2021 10:07 09/24/2021 Venous) AM STRIPPER AND PRINTER 10:44 AM STRIPPER AND PRINTER Vladislav Zarco M.D. LAB BLOOD ADD-ON Performing Organization Address City/State/ZIP Code Phon e Number [facility] - [address] [place], [place] [address] [facility] [place] [address] [facility] [address] documented in this encounter Visit Diagnoses Diagnosis Secondary Malignant Neoplasm Liver (HCC) - Primary Malignant Neoplasm Of Pancreas (HCC) Bacteremia documented in this encounter Administered Medications Inactive Administered Medications - up to 3 most recent administrations Medication Order MAR Action Action Date Dose Rate Site heparin flush 500 Units Given 09/24/2021 10:09 AM STRIPPER AND PRINTER 500 Units 500 Units, intra-catheter, As needed, line care, Starting on Mon09/24/21 at 0959, When no infusion to maintain patency: For IVAD accessed, not in use, and/or prior to hospital discharge, flush every 7 days after 0.9% preservative-free NaCL flush. For IVAD NOT accessed or used, flush every 4 weeks after 0.9% preservative-free NaCL flush. sodium chloride 0.9 % injection 10 mL Given 09/24/2021 10:07 AM STRIPPER AND PRINTER 10 mL 10 mL, intra-catheter, As needed, line care, Starting on Mon09/24/21 at 0959, When IVAD Accessed and in Use: Flush prior to and following infusion, between multiple consecutive infusions, and prior to blood sampling. sodium chloride 0.9 % injection 20 mL Given 09/24/2021 10:09 AM STRIPPER AND PRINTER 20 mL 20 mL, intra-catheter, As needed, line care, Starting on Mon09/24/21 at 0959, When IVAD Accessed and in Use: Flush post blood transfusion or post blood sampling. documented in this encounter Care Teams Cash Register Servicer Relationship Specialty Start Date End Date Elsewhere, Pcp PCP - General Family Medicine 08/12/20 documented as of this encounter
--- OUTSIDE RECORDS SUMMARY | 2022-06-18 16:07 | XMS_ITS | Encounter Summary ---
:1965 Author Organization [facility] Address [address] [place] [address] Care Team Providers Name Role Phone Elsewhere, Pcp Primary Care Provider Unavailable Encounter Details Date Type Department Care Team Description 10/07/2021 Orders Only Department of Oncology in [place] Remy [place], [place] [address] [place] [phone] Social History Tobacco Use Types Packs/Day [...] How often do you attend orthodoxy or anabaptism services? 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 [address] [place] [phone] (Mj godoy) 06/22/2022 Infusion Oncology Maria Del Rosario Gomez APRN, C.N .P., M.S. [address] [place] [address] [phone] (Mj godoy) 06/29/2022 Lab Laboratory Medicine MariaD el Rosario Gomez AP RN, C.N.P., M.S. [address] [place] [address] [phone] (Mj godoy) 06/29/2022 Infusion Oncology Maria Del Rosario Gomez APRN, C.N .P., M.S. [address] [place] [phone] (Mj godoy) documented as of this encounter Visit Diagnoses Not on filedocumented in this encounter Additional Health Concerns Assessment Noted Time PHQ-9 Depression Total Score: 2 10/01/2021 10:34 AM CS T documented as of this encounter Care Teams Sales And Marketing Coordinator Relationship Specialty Start Date End Date Elsewhere, Pcp PCP - General Family Medicine 08/12/20 documented as of this encounter
--- OUTSIDE RECORDS SUMMARY | 2022-06-18 16:07 | XMS_ITS | Encounter Summary ---
:1965 Author Organization [facility] Address [address] [place] [address] Care Team Providers Name Role Phone Elsewhere, Pcp Primary Care Provider Unavailable Reason for Visit Outpatient (Routine) - Closed Specialty Diagnoses / Procedures Referred By Contact Refer red To Contact Oncology Diagnoses Malignant Neoplasm Of Pancreas (HCC) Vladislav Zarco M.D. [facility] [address] [place] [phone] Referral ID Status Reason Start Date Expiration Date Visits Requ ested Visits Authorized [id number] Closed 08/23/2021 08/23/2022 1 1 Encounter Details Date Type Department Care Team Description 10/01/2021 Office Visit Department of Oncology Wes Mantilla Ma lignant Neoplasm Of in Randall Perdomo M.D. Pancreas (HCC) [address] [place] [phone] Social History Tobacco Use Types Packs/Day Years [...] How often do you attend rastafarian or yazidism services? Never 01/15/2021 Do you [...] at Date Recorded Male 08/18/2021 2:55 PM ILLUSTRATOR SET documented as of this encounter Last Filed Vital Signs Vital Sign Reading Time Taken Comments Blood Pressure 96/60 10/01/2021 1:00 PM ILLUSTRATOR SET Pulse 96 10/01/2021 1:00 PM ILLUSTRATOR SET Temperature 36.3 ??C (97.3 ??F) 10/01/2021 1:00 PM ILLUSTRATOR SET Respiratory Rate 16 10/01/2021 1:00 PM ILLUSTRATOR SET Oxygen Saturation 97% 10/01/2021 1:00 PM ILLUSTRATOR SET Inhaled Oxygen Concentration - - Weight 77.9 kg (171 lb 11.8 oz) 10/01/2021 1:00 PM ILLUSTRATOR SET Height 176.8 cm (5' 9.61) 10/01/2021 1:00 PM ILLUSTRATOR SET Body Mass Index 24.92 10/01/2021 1:00 PM ILLUSTRATOR SET documented in this encounter Progress Notes Mariela Gomes M.D. - 10/01/2021 1:20 PM CST DEMOGRAPHIC INFORMATION Patient Name: Adam Campbell Birthdate: 1965 Sex: male Address: [address] [place] [phone] [facility] ONCOLOGIST Deborah Murray M.B.B.S. Maria Del Rosario Gomez APRN, C.N.P., M.S. CHIEF COMPLAINT/REASON FOR VISIT Follow-up for metastatic pancreatic cancer on clinical trial HISTORY OF PRESENT ILLNESS Adam Campbell is a 56 y.o. male with the following oncologic history who presents today for follow-up: Oncology History Malignant Neoplasm Of Pancreas (HCC) [...] - 03/02/2021) Site: Pancreas Technique: 3D SENIOR LITIGATION PARALEGAL Goal: Curative Planned Treatment Start Date: 01/25/2021 01/25/2021 - 03/01/2021 Chemotherapy Gemcitabine ( with Radiation ) Start Date: 01/25/2021 08/13/2021 Genetic Testing and Tumor Genotyping [facility] pancreas panel negative 08/27/2021 - Research Study Participant Research Study: A Study to Analyze Onvansertib Treatment in Patients with Metastatic Pancreatic Ductal Adenocarcinoma ([id number]) Treatment Protocol: [facility] CRDF-001 ( Onvansertib (Days 1-10) / Fluorouracil / Leucovorin / Nanoliposomal Irinotecan ) INTERVAL HISTORY Overall, he is doing quite well. 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 He notes intermittent abdominal pain and some increased gas. He notes fatigue a few days after treatment and some decreased appetite. He denies diarrhea, fevers, change in taste, dry mouth, mucositis, dyspnea, arthralgia, myalgias, back pain. He denies lightheadedness or dizziness. He states that his neuropathy is worsened when on the onvansertib and resolves once he stops the drug. He notes that his arthritis pain hasimproved while on treatment. He states his mood is overall unchanged. He does note some increased irritability at times. OBJECTIVE VITAL SIGNS Vitals: 10/01/21 1300 BP: 96/60 Pulse: 96 Resp: 16 Temp: 36.3 ??C SpO2: 97% PHYSICAL EXAMINATION General: Alert, interactive, not acutely ill, no apparent distress. Skin: No rashes or lesions on exposed surfaces . Eyes: Pupils equal and round. Sclera anicteric. Lungs: Unlabored respiratory effort Neuro: alert and oriented ECOG PS: 0 DIAGNOSTIC STUDIES Recent Labs 10/01/21 1130 10/01/21 1129 NA 140 -- CL 104 -- BICARB 27 -- MG -- 2.0 CALCIUM 9.4 -- BUN 17 -- CREATININE 0.81 -- GLUCOSE 91 -- ALBUMIN -- 4.1 HGB 12.0 L -- HCT 36.6 L -- WBC 3.3 L -- PLT 145 -- ASSESSMENT / PLAN #1 Malignant Neoplasm Of Pancreas (HCC) Adam Campbell is a 56 y/o male with metastatic pancreatic cancer on clinical trial. He is tolerating treatment well. Lab work reviewed today and acceptable for continuing treatment. Will plan to start cycle 3 today. Restaging imaging and follow-up plans to occur per the study protocol. PATIENT EDUCATION Patient ready to learn, no apparent learning barriers were identified; learning preferences include listening. Explained diagnosis and treatment plan; patient expressed understanding of the content. ADMINISTRATIVE BILLING Total time of encounter: I personally spent 25 minutes in direct and indirect patient care related to today's visit Mariela Gomes MD Hematology/Oncology Fellow STRATOR SET Wes Mantilla M.D., M.P.H. - 10/01/2021 1:20 PM CST I have seen the patient and concur with the assessment, evaluation, and recommendations of in this note. Mr. Campbell continues to do well overall. He has not developed any new or progressive side effects ofhis treatment. He has no clinical findings that would suggest progression of his cancer. Indeed, hislaboratory tests indicate improvement in his liver function. Outside of listed side effects and symptom he is otherwise doing very well. Based on his evaluation today we will proceed with his next cycle of treatment as per the protocol. STRATOR SET documented in this encounter Plan of Treatment Upcoming Encounters Date Type Specialty Care Team Description 06/22/2022 Lab Laboratory Medicine Maria Del Rosario Gomez AP RN, C.N.P., M.S. [address] [place] [phone] (Mj rk) 06/22/2022 Infusion Oncology Maria Del Rosario Gomez APRN, C.N .P., M.S. [address] [place] [address] [phone] (Mj godoy) 06/29/2022 Lab Laboratory Medicine Maria Del Rosario Gomez AP RN, C.N.P., M.S. [address] [place] [address] [phone] (Mj godoy) 06/29/2022 Infusion Oncology Maria Del Rosario Gomez APRN, C.N .P., M.S. [address] [place] [address] [phone] (Mj godoy) documented as of this encounter Visit Diagnoses Diagnosis Malignant Neoplasm Of Pancreas (HCC) documented in this encounter Additional Health Concerns Assessment Noted Time PHQ-9 Depression Total Score: 2 10/01/2021 10:34 AM CS T documented as of this encounter Care Teams Choral Teacher Relationship Specialty Start Date End Date Elsewhere, Pcp PCP - General Family Medicine 08/12/20 documented as of this encounter
--- OUTSIDE RECORDS SUMMARY | 2022-06-18 16:07 | XMS_ITS | Encounter Summary ---
:1965 Author Organization [facility] Address [address] [place] [address] Care Team Providers Name Role Phone Elsewhere, Pcp Primary Care Provider Unavailable Encounter Details Date Type Department Care Team Description 09/09/2021 Clinical Communication Department of Oncology Nikki Segura in [facility] elke ChristiePh.T. [address] [facility] [phone] [place], [place] (Work) [phone] Social History Tobacco Use Types Packs/Day Years [...] How often do you attend confucianist or advent services? Never 01/15/2021 Do you [...] at Date Recorded Male 08/18/2021 2:55 PM CLINICAL DOCUMENTATION SPEC documented as of this encounter Miscellaneous Notes Telephone Encounter - Emma Mora RRiazN. - 09/13/2021 8:55 AM CST Information Discussed Mr. Campbell reports that his rope like, mucus stools have resolved. He had a bowel movement this morning that he describes as normal for him. It was formed and normal in color, consistency and amount. He is eating and drinking normally. Denies any blood in the stool. He will see us in the clinic on Monday and has our number to call with any questions or concerns that may arise before then. PLAN Disposition/Recommendation: self-care at home appropriate at this time, patient encouraged to call back with questions Information/Education: patient/caller able to teach back Caller agreeable to plan of care: yes The following references were used: nursing clinical judgement ICAL DOCUMENTATION SPEC Telephone Encounter - Brenda Villeda R.N., O.C.N. - 09/09/2021 11:11 AM CLINICAL DOCUMENTATION SPEC SUBJECTIVE CHIEF COMPLAINT / REASON FOR CALL Mucous strings surrounding stool ASSESSMENT Mr. Campbell reported that yesterday after leaving the clinic he had an atypical bowel movement. He stated that his stool was coated with strings of mucous. He denied that there was any blood in his stoolor diarrhea. He has noted no fevers. He reported that at times he has had mild abdominal discomfort from cramping. This is intermittent and does not interfere with his diet. He has maintained an excellent appetite and has experienced no nausea or vomiting. Mr. Campbell did report that he has been experiencing more flatulence then is normal for him but this has not been bothersome. PLAN I instructed Mr. aCmpbell to continue to monitor his bowel movements and to reach out to us if he begins to have diarrhea, blood in his stool, increase in the amount of mucous or abdominal cramping, fever, or if he begins to experience nausea or vomiting. Disposition/Recommendation: recommended continue engagement in self-management activities. Information/Education: patient/caller able to teach back. Caller agreeable to plan of care: yes. The following references were used: nursing clinical judgement. ICAL DOCUMENTATION SPEC Telephone Encounter - Nikki Segura C.Ph.T. - 09/09/2021 10:37 AM CLINICAL DOCUMENTATION SPEC I called and informed patient that he only needs to come in for C1D13 on 09/13/2021 due to [facility]'s holiday schedule, and reminded patient that it is important to take his next dose tomorrow exactly at 8:30am. Patient stated someone on the care team needs to call him as soon as possible to address a few concerns about his stool from yesterday. Patient explained his stool were rope- worm and mucus like, andthis put him in fear of something bad is happening internally. I informed patient that I'll rely hisconcerns to the care team and someone will give him a call today. ICAL DOCUMENTATION SPEC documented in this encounter Plan of Treatment Upcoming Encounters Date Type Specialty Care Team Description 06/22/2022 Lab Laboratory Medicine Maria Del Rosario Gomez AP RN, C.N.P., M.S. [address] [place] [address] [phone] (Mj godoy) 06/22/2022 Infusion Oncology Maria Del Rosario Gomez APRN, C.N .P., M.S. [address] [place] [address] [phone] (Mj godoy) 06/29/2022 Lab Laboratory Medicine Maria Del Rosario Gomez AP RN, C.N.P., M.S. [address] [place] [address] [phone] (Mj godoy) 06/29/2022 Infusion Oncology Maria Del Rosario Gomez APRN, C.N .P., M.S. [address] [place] [address] [phone] (Mj godoy) documented as of this encounter Visit Diagnoses Not on filedocumented in this encounter Care Teams Table Games Dual Rate Supervisor Relationship Specialty Start Date End Date Elsewhere, Pcp PCP - General Family Medicine 08/12/20 documented as of this encounter
--- OUTSIDE RECORDS SUMMARY | 2022-06-18 16:07 | XMS_ITS | Encounter Summary ---
:1965 Author Organization [facility] Address [address] [place] [address] Care Team Providers Name Role Phone Elsewhere, Pcp Primary Care Provider Unavailable Encounter Details Date Type Department Care Team Description 09/13/2021 Orders Only Department of Oncology in [facility] [place], [place] [address] [place] [phone] Social History Tobacco Use Types Packs/Day [...] How often do you attend protestant or islam services? 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 [address] [place] [phone] (Mj godoy) 06/22/2022 Infusion Oncology Maria Del Rosario Gomez APRN, C.N .P., M.S. [address] [place] [address] [phone] (Mj godoy) 06/29/2022 Lab Laboratory Medicine Maria Del Rosario Gomez AP RN, C.N.P., M.S. [address] [place] [address] [phone] (Mj godoy) 06/29/2022 Infusion Oncology Maria Del Rosario Gomez APRN, C.N .P., M.S. [address] [place] [address] [phone] (Mj godoy) documented as of this encounter Visit Diagnoses Not on filedocumented in this encounter Care Teams Visual Manager Relationship Specialty Start Date End Date Elsewhere, Pcp PCP - General Family Medicine 08/12/20 documented as of this encounter
--- OUTSIDE RECORDS SUMMARY | 2022-06-18 16:07 | XMS_ITS | Encounter Summary ---
:1965 Author Organization [facility] Address [address] [place] [address] Care Team Providers Name Role Phone Elsewhere, Pcp Primary Care Provider Unavailable Reason for Visit Episode Based Medications (Routine) - Authorized Specialty Diagnoses / Procedures Referred By Contact Refer red To Contact Medical Oncology / Diagnoses Malignant Neoplasm Of Pancreas (HCC) Vladislav Zarco [facility] Procedures ONCBCN INFUSION APPOINTMENT REQUEST 25 [place] ONDANSETRON HCL INJECTION AR LEUCOVORIN CALCIUM INJECTION AR FLUOROURACIL INJECTION ONC THER SUMMER Pereira M.D. 200 [facility] [address] [place] [phone] Referral ID Status Reason Start Date Expiration Date Visits V isits Requested Authorized [id number] Authorized 08/27/2021 08/27/2022 10 10 Encounter Details Date Type Department Care Team Description 10/01/2021 Infusion Department of Oncology Vladislav Zarco Malignant Neoplasm Of Pancreas (HCC) (Primary Dx); in [facility] elke Pereira M.D. Secondary Malignant Neoplasm Liver (HCC) ; [address] [place] [address] [address] [place] [phone] (Wo rk) Social History Tobacco Use Types [...] How often do you attend congregational or caodaism services? Never 01/15/2021 Do you [...] at Date Recorded Male 08/18/2021 2:55 PM SERVER SECURITY ADMINISTRATOR documented as of this encounter Plan of Treatment Upcoming Encounters Date Type Specialty Care Team Description 06/22/2022 Lab Laboratory Medicine Maria Del Rosario Gomez AP RN, C.N.P., M.S. [address] [place] [phone] (Mj godoy) 06/22/2022 Infusion Oncology Maria Del Rosario Gomez APRN, C.N .P., M.S. [address] [place] [phone] (Mj godoy) 06/29/2022 Lab Laboratory Medicine Maria Del Rosario Gomez AP RN, C.N.P., M.S. [address] [place] [phone] (Mj godoy) 06/29/2022 Infusion Oncology Maria Del Rosario Gomez APRN, C.N .P., M.S. [address] [place] [phone] (Mj godoy) documented as of this encounter Visit Diagnoses Diagnosis Malignant Neoplasm Of Pancreas (HCC) - P rimary Secondary Malignant Neoplasm Liver (HCC) Bacteremia documented in this encounter Administered Medications Inactive Administered Medications - up to 3 most recent administrations Medication Order MAR Action Action Date Dose Rate Site atropine injection 0.5 Given 10/01/2021 3:48 PM 0.5 mg Right Lower Abdomen mg SERVER SECURITY ADMINISTRATOR 0.5 mg, subcutaneous, Once, On Mon10/01/21 at 1415, For 1 dose, PRE treatment dexAMETHasone injection 8 mg (DECADRON) Given 10/01/2021 2:28 PM SERVER SECURITY ADMINISTRATOR 8 mg 8 mg, intravenous, Once, On Mon10/01/21 at 1415, For 1 dose fluorouraciL 5,000 mg in NaCl 0.9% Given 10/01/2021 6:09 PM SERVER SECURITY ADMINISTRATOR 5,000 mg 2.2 mL/hr 102 mL IVPB (ADRUCIL) 5,000 mg (rounded from 4,776 mg = 2,400 mg/m2 ? 1.99 m2 Treatment Plan BSA from Measured weight), intravenous, at 2.2 mL/hr, Administer over 46 Hours, over 46 hours, First dose on Mon10/01/21 at 1615, For 1 dose, Infuse at 2.2mL/hr for 46 hours continuous infusion via CADD pump # [id number] irinotecan liposomaL 129 mg in D5W New Bag 10/01/2021 3:49 PM SERVER SECURITY ADMINISTRATOR 129 mg 353 mL/hr 530 mL IVPB (ONIVYDE) 129 mg (rounded from 139.3 mg = 70 mg/m2 ? 1.99 m2 Treatment Plan BSA from Measured weight), intravenous, at 353 mL/hr, Administer over 90 Minutes, Once, On Mon10/01/21 at 1415, For 1 dose, Administer immediately following the administration of oral onvansertib. Protect from light. No in-line filter. leucovorin 800 mg in NaCl 0.9% 315 New Bag 10/01/2021 5:40 PM SERVER SECURITY ADMINISTRATOR 800 mg 630 mL/hr mL IVPB 800 mg (rounded from 796 mg = 400 mg/m2 ? 1.99 m2 Treatment Plan BSA from Measured weight), intravenous, at 630 mL/hr, Administer over 30 Minutes, Once, On Mon10/01/21 at 1545, For 1 dose, Follows irinotecan liposome. palonosetron injection 0.25 mg (ALOXI) Given 10/01/2021 2:28 PM SERVER SECURITY ADMINISTRATOR 0.25 mg 0.25 mg, intravenous, Once, On Mon10/01/21 at 1415, For 1 dose [facility] [id number] onvansertib capsule 20 Given 3:48 PM SERVER SECURITY ADMINISTRATOR 20 mg mg (PCM-075) 20 mg, oral, Once, On Mon10/01/21 at 1415, For 1 dose, This is the 20 [...] prior to liposomal irinotecan Infusion. [facility] [id number] onvansertib capsule 5 mg Given 10/01/2021 3:48 PM SERVER SECURITY ADMINISTRATOR 5 mg (PCM-075) 5 mg, oral, Once, On Mon10/01/21 at 1415, For 1 dose, This is the 5 [...] chloride 0.9 % injection 10 mL Given 10/01/2021 6:08 PM SERVER SECURITY ADMINISTRATOR 10 mL 10 mL, intra-catheter, As needed, line care, Starting on Mon10/01/21 at 1411, When IVAD Accessed and in Use: Flush prior to and following infusion, between multiple consecutive infusions, and prior to blood sampling. documented in this encounter Additional Health Concerns Assessment Noted Time PHQ-9 Depression Total Score: 2 10/01/2021 10:34 AM CS T documented as of this encounter Care Teams Nutrition Associate Relationship Specialty Start Date End Date Elsewhere, Pcp PCP - General Family Medicine 08/12/20 documented as of this encounter
--- OUTSIDE RECORDS SUMMARY | 2022-06-18 16:07 | XMS_ITS | Encounter Summary ---
:1965 Author Organization [facility] Address [address] [place] [address] Care Team Providers Name Role Phone Elsewhere, Pcp Primary Care Provider Unavailable Reason for Referral Outpatient (Routine) - Closed Specialty Diagnoses / Procedures Referred By Contact Refer red To Contact Diagnoses Malignant Neoplasm Of Pancreas (HCC) [facility] Procedures ONC Pump Disconnect C.N.P., M.S. [address] [place] [phone] Referral ID Status Reason Start Date Expiration Date Visits Requ ested Visits Authorized [id number] Closed 09/17/2021 09/17/2022 1 1 TAPE CONVERTER OPERATOR Reason for Visit Episode Based Medications (Routine) - Authorized Specialty Diagnoses / Procedures Referred By Contact Refer red To Contact Medical Oncology / Diagnoses Malignant Neoplasm Of Pancreas (HCC) Vladislav Zarco Inf Onc [facility] Procedures ONCBCN INFUSION APPOINTMENT REQUEST [address] [place] ONDANSETRON HCL INJECTION [place] LEUCOVORIN CALCIUM INJECTION [place] FLUOROURACIL INJECTION ONC THER SUMMER Pereira M.D. 200 [facility] [address] [place] [phone] Referral ID Status Reason Start Date Expiration Date Visits V isits Requested Authorized [id number] Authorized 08/27/2021 08/27/2022 10 10 Encounter Details Date Type Department Care Team Description 09/17/2021 Infusion Department of Oncology Vladislav Zarco Malignant Neoplasm Of Pancreas (HCC) (Primary Dx); in [facility] elke Pereira M.D. Secondary Malignant Neoplasm Liver (HCC) ; [address] [place] [phone] (Wo rk) Social History Tobacco Use Types [...] How often do you attend orthodox or zoroastrian services? Never 01/15/2021 Do you [...] Date Recorded Male 08/18/2021 2:55 PM CARD TAPE CONVERTER OPERATOR documented as of this encounter Plan of Treatment Upcoming Encounters Date Type Specialty Care Team Description 06/22/2022 Lab Laboratory Medicine Maria Del Rosario Gomez AP RN, C.N.P., M.S. [address] [place] [phone] (Mj godoy) 06/22/2022 Infusion Oncology Maria Del Rosario Gomez APRN, C.N .P., M.S. [address] [place] [phone] (Mj godoy) 06/29/2022 Lab Laboratory Medicine [facility] AD Hernandez RN, C.N.P., M.S. [address] [place], [place] [phone] ([facility]) 06/29/2022 [facility], C.N .P., M.S. [address] [place], [place] [phone] ([facility]) Scheduled Orders Name Type Priority Associated Diagnoses Order S chedule ONC Pump Disconnect Procedures Routine Malignant Neoplasm Of Expected: 09/19/2021, Pancreas (HCC) Expires: 03/2023 documented as of this encounter Visit Diagnoses Diagnosis Malignant Neoplasm Of Pancreas (HCC) - P rimary Secondary Malignant Neoplasm Liver (HCC) Bacteremia documented in this encounter Administered Medications Inactive Administered Medications - up to 3 most recent administrations Medication Order MAR Action Action Date Dose Rate Site atropine injection 0.5 Given 09/17/2021 12:42 PM 0.5 mg Left Upper Abdomen mg CARD TAPE CONVERTER OPERATOR 0.5 mg, subcutaneous, Once, On Mon09/17/21 at 1230, For 1 dose, PRE treatment dexAMETHasone injection 8 mg (DECADRON) Given 09/17/2021 12:01 PM CARD TAPE CONVERTER OPERATOR 8 mg 8 mg, intravenous, Once, On Mon09/17/21 at 1145, For 1 dose fluorouraciL 5,000 mg in NaCl 0.9% Given 09/17/2021 3:08 PM CARD TAPE CONVERTER OPERATOR 5,000 mg 2.2 mL/hr 102 mL IVPB (ADRUCIL) 5,000 mg (rounded from 4,776 mg = 2,400 mg/m2 ? 1.99 m2 Treatment Plan BSA from Measured weight), intravenous, at 2.2 mL/hr, Administer over 46 Hours, over 46 hours, First dose on Mon09/17/21 at 1345, For 1 dose, Infuse at 2.2mL/hr for 46 hours continuous infusion via CADD pump # [id number] irinotecan liposomaL 129 mg in D5W New Bag 09/17/2021 12:47 PM CARD TAPE CONVERTER OPERATOR 129 mg 353 mL/hr 530 mL IVPB (ONIVYDE) 129 mg (rounded from 139.3 mg = 70 mg/m2 ? 1.99 m2 Treatment Plan BSA from Measured weight), intravenous, at 353 mL/hr, Administer over 90 Minutes, Once, On Mon09/17/21 at 1145, For 1 dose, Administer immediately following the administration of oral onvansertib. Protect from light. No in-line filter. leucovorin 800 mg in NaCl 0.9% 315 New Bag 09/17/2021 2:35 PM CARD TAPE CONVERTER OPERATOR 800 mg 630 mL/hr mL IVPB 800 mg (rounded from 796 mg = 400 mg/m2 ? 1.99 m2 Treatment Plan BSA from Measured weight), intravenous, at 630 mL/hr, Administer over 30 Minutes, Once, On Mon09/17/21 at 1315, For 1 dose, Follows irinotecan liposome. palonosetron injection 0.25 mg (ALOXI) Given 09/17/2021 12:01 PM CARD TAPE CONVERTER OPERATOR 0.25 mg 0.25 mg, intravenous, Once, On Mon09/17/21 at 1145, For 1 dose [facility] [id number] onvansertib capsule 20 Given 2:40 PM CARD TAPE CONVERTER OPERATOR 20 mg mg (PCM-075) 20 mg, oral, Once, On Mon09/17/21 at 1500, For 1 dose, This is [...] prior to liposomal irinotecan Infusion. [facility] [id number] onvansertib capsule 5 mg Given 09/17/2021 2:40 PM CARD TAPE CONVERTER OPERATOR 5 mg (PCM-075) 5 mg, oral, Once, On Mon09/17/21 at 1500, For 1 dose, This is [...] liposomal irinotecan Infusion. documented in this encounter Care Teams Cafe Site Attendant Relationship Specialty Start Date End Date Elsewhere, Pcp PCP - General Family Medicine 08/12/20 documented as of this encounter
--- OUTSIDE RECORDS SUMMARY | 2022-06-18 16:07 | XMS_ITS | Encounter Summary ---
:1965 Author Organization [facility] Address [address] [place] [address] Care Team Providers Name Role Phone Elsewhere, Pcp Primary Care Provider Unavailable Reason for Referral Outpatient (Routine) - Closed Specialty Diagnoses / Procedures Referred By Contact Refer red To Contact Oncology Diagnoses Malignant Neoplasm Of Pancreas (HCC) Vladislav Zarco M.D. [address] [phone] Referral ID Status Reason Start Date Expiration Date Visits Requ ested Visits Authorized [id number] Closed 09/17/2021 09/17/2022 1 1 Scheduling Instructions Hernan Jiménez [address] Hall[address] - for e report time of the provider visit. AURANT SHIFT LEADER Reason for Visit Outpatient (Routine) - Closed Specialty Diagnoses / Procedures Referred By Contact Refer red To Contact Oncology Diagnoses Malignant Neoplasm Of Pancreas (HCC) Vladislav Zarco M.D. [address] [phone] Referral ID Status Reason Start Date Expiration Date Visits Requ ested Visits Authorized [id number] Closed 08/23/2021 08/23/2022 1 1 Encounter Details Date Type Department Care Team Description 09/17/2021 Office Visit Department of Oncology Ruby Zarco Neoplasm Of in [place], Vladislav Pereira M.D. Pancreas (HCC) [address] (Primary Dx) [address] [place] [phone] Social History Tobacco Use Types Packs/Day Years [...] er 01/15/2021 How often do you attend mandaen or gnosticist services? Never 01/15/2021 Do you belong to any clubs or organizations such as mandaen N o 01/15/2021 groups, unions, fraternal or [...] at Date Recorded Male 08/18/2021 2:55 PM RESTAURANT SHIFT LEADER documented as of this encounter Progress Notes Vladislav Zarco M.D. - 09/17/2021 10:30 AM CST SUBJECTIVE PRIMARY CARE PHYSICIAN ELSEWHERE, PCP, MAvinash. Patient Care Team: Adrian Mills M.D. as External Primary Care Physician (Family Medicine) LOCAL ONCOLOGIST No care outreach team member to display PRIMARY [place] ONCOLOGIST Deborah Murray M.B.B.S. Maria Del Rosario Gomez, GUERO, C.N.P., M.S. CHIEF COMPLAINT / REASON FOR VISIT Adam Campbell is a 56 y.o. male who presents for evaluation of pancreatic cancer metastatic tothe liver. He has now received a cycle of chemotherapy and tolerated it fairly well. He had 1 episode of diarrhea, and also a separate episode of mucus stool. 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 No other current complaints His states he may be depressed. The patient is not as certain of this, and states he really feels cooped up at home with not working and COVID. HISTORY OF PRESENT ILLNESS Oncology History Oncology [...] (01/25/2021 - 03/02/2021) Site: Pancreas Technique: 3D FINAL INSPECTOR Goal: Curative Planned Treatment Start Date: 01/25/2021 01/25/2021 - 03/01/2021 Chemotherapy Gemcitabine ( with Radiation ) Start Date: 01/25/2021 08/13/2021 Genetic Testing and Tumor Genotyping [facility] pancreas panel negative 08/27/2021 - Research Study Participant Research Study: A Study to Analyze Onvansertib Treatment in Patients with Metastatic Pancreatic Ductal Adenocarcinoma ([id number]) Treatment Protocol: [facility] CRDF-001 ( Onvansertib (Days 1-10) / Fluorouracil / Leucovorin / Nanoliposomal Irinotecan ) General: Associated symptoms: no chest pain, no fatigue, no fever, no nausea, no numbness and no vomiting The following portions of the patient's history were reviewed and updated as appropriate: allergies,current medications, medical history and problem list. No data recorded REVIEW OF SYSTEMS Constitutional: Negative for fatigue, fever, loss of appetite and weight loss of more than 10 pounds. Cardiovascular: Negative for chest pain, pressure or tightness and swelling in the legs or feet. Gastrointestinal: Positive for diarrhea. Negative for nausea and vomiting. Hematologic: Negative for abnormal lumps or bumps. Neurological: Negative for numbness or shooting pain in hands, arms, legs, or feet. Psychiatric/Behavioral: Positive for feeling down, depressed, or hopeless over past two weeks. The following systems were negative: Respiratory, , Musculoskeletal OBJECTIVE There were no vitals taken for this visit. PHYSICAL EXAM ECOG performance score: 0 - [...] Radiology data reviewed. ASSESSMENT / PLAN #1 Malignant Neoplasm Of Pancreas (HCC) Patient has slight elevation of his liver function tests. His bilirubin however is not elevated so we will continue with therapy. He does have a distal stent in place, and per the patient it was difficult to get into position. If it continues to rise may consider imaging the liver and considering whether or not he needs a repeat ERCP. He meets criteria for treatment today. With regard to his mood I will have him complete a LIBORIO-7 and PHQ-9 PATIENT EDUCATION Ready to learn, no apparent learning barriers were identified; learning preferences include listening. Explained diagnosis and treatment plan; patient expressed understanding of the content. ADMINISTRATIVE BILLING AURANT SHIFT LEADER documented in this encounter Miscellaneous Notes Addendum Note - Melissa Melvin - 09/17/2021 10:30 AM RESTAURANT SHIFT LEADER Addended by: MELISSA MELVIN on: 09/29/2021 08:04 AM Modules accepted: Orders AURANT SHIFT LEADER documented in this encounter Plan of Treatment Upcoming Encounters Date Type Specialty Care Team Description 06/22/2022 Lab Laboratory Medicine Maria Del Rosario Gomez AP RN, C.N.P., M.S. [address] [place] [phone] (Mj godoy) 06/22/2022 Infusion Oncology Maria Del Rosario Gomez APRN, C.N .P., M.S. [address] [place] [phone] (Mj godoy) 06/29/2022 Lab Laboratory Medicine Maria Del Rosario Gomez AP RN, C.N.P., M.S. [address] [place] [phone] (Mj godoy) 06/29/2022 Infusion Oncology Maria Del Rosario Gomez APRN, C.N .P., M.S. [address] [place] [phone] (Mj godoy) Scheduled Referrals Name Type Priority Associated Diagnoses Order S [facility] Oncology nurse Outpatient Referral Routine Malignant Neoplasm Expected: visit (clinic) Of Pancreas (HCC) 09/17/19 22, Expires: 12/16/2022 documented as of this encounter Results Miscellaneous Research, B (10/01/2021 11:30 AM RESTAURANT SHIFT LEADER) P athologist Signature Number of 3 10/01/2021 HSS Specimens 11:30 AM RESTAURANT SHIFT LEADER Specimen Anatomical Collection Method Collection Time Receive d Time (Source) Location / / Volume Laterality Varies (Blood, 10/01/2021 11:30 2 Venous) AM RESTAURANT SHIFT LEADER 11:30 AM RESTAURANT SHIFT LEADER Vladislav Zarco M.D. LAB RESEARCH NO RESULT VEERNICE MCFADDEN Performing Organization Address City/State/ZIP Code Phon e Number [facility] - [address] [place], [place] [address] [facility] [place] [address] [facility] [address] documented in this encounter Visit Diagnoses Diagnosis Malignant Neoplasm Of Pancreas (HCC) - P rimary documented in this encounter Care Teams Environmental Permitting Specialist Relationship Specialty Start Date End Date Elsewhere, Pcp PCP - General Family Medicine 08/12/20 documented as of this encounter
--- OUTSIDE RECORDS SUMMARY | 2022-06-18 16:07 | XMS_ITS | Encounter Summary ---
:1965 Author Organization [facility] Address [address] [place] [address] Care Team Providers Name Role Phone Elsewhere, Pcp Primary Care Provider Unavailable Reason for Visit Reason Comments Intake Assessment Encounter Details Date Type Department Care Team Description 09/15/2021 Clinical Communication Department of Baldemar Zarco [place] Oncology in Vladislav Pereira M.D. [place], [facility] [address] [place], [place] [address] [place] [phone] [place], [place] [phone] (Work) [phone] Social History Tobacco Use Types Packs/Day Years [...] How often do you attend alevism or church services? Never 01/15/2021 Do you [...] at Date Recorded Male 08/18/2021 2:55 PM LIBRARY AIDE documented as of this encounter Miscellaneous Notes Telephone Encounter - PeterGenoveva ochoa - 09/15/2021 12:56 PM CST Intake screening completed. ARY AIDE documented in this encounter Plan of Treatment Upcoming Encounters Date Type Specialty Care Team Description 06/22/2022 Lab Laboratory Medicine Maria Del Rosario Gomez AP RN, C.N.P., M.S. [address] [place] [phone] (Wo rk) 06/22/2022 Infusion Oncology Maria Del Rosario Gomez APRN, C.N .P., M.S. [address] [place] [phone] (Wo rk) 06/29/2022 Lab Laboratory Medicine Maria Del Rosario Gomez AP RN, C.N.P., M.S. [address] [place] [phone] (Wo rk) 06/29/2022 Infusion Oncology Maria Del Rosario Gomez APRN, C.N .P., M.S. [address] [place] [phone] (Wo rk) documented as of this encounter Visit Diagnoses Not on filedocumented in this encounter Care Teams Welder Assistant Relationship Specialty Start Date End Date Elsewhere, Pcp PCP - General Family Medicine 08/12/20 documented as of this encounter
--- OUTSIDE RECORDS SUMMARY | 2022-06-18 16:07 | XMS_ITS | Encounter Summary ---
:1965 Author Organization [facility] Address [address] [place] [address] Care Team Providers Name Role Phone Elsewhere, Pcp Primary Care Provider Unavailable Reason for Visit Reason Comments Appointment Change Encounter Details Date Type Department Care Team Description 09/17/2021 Clinical Communication Department of Emma Mora intment Change Oncology in M, R.N. [place], [place] (Work) [address] [place] [address] Social History Tobacco Use Types Packs/Day Years [...] er 01/15/2021 How often do you attend gnosticist or sabianism services? Never 01/15/2021 Do you belong to any clubs or organizations such as gnosticist N o 01/15/2021 groups, unions, fraternal or [...] at Date Recorded Male 08/18/2021 2:55 PM ASSOCIATE FINANCIAL REPRESENTATIVE documented as of this encounter Plan of Treatment Upcoming Encounters Date Type Specialty Care Team Description 06/22/2022 Lab Laboratory Medicine Maria Del Rosario Gomez AP RN, C.N.P., M.S. [address] [place] [phone] (Wo rk) 06/22/2022 Infusion Oncology Maria Del Rosario Gomez APRN, C.N .P., M.S. [address] [place] [phone] (Wo rk) 06/29/2022 Lab Laboratory Medicine Maria Del Rosario Gomez AP RN, C.N.P., M.S. [address] [place] [phone] (Wo rk) 06/29/2022 Infusion Oncology Maria Del Rosario Gomez APRN, C.N .P., M.S. [address] [place] [phone] (Wo rk) documented as of this encounter Visit Diagnoses Not on filedocumented in this encounter Care Teams Telecommunications Administrator Relationship Specialty Start Date End Date Elsewhere, Pcp PCP - General Family Medicine 08/12/20 documented as of this encounter
--- OUTSIDE RECORDS SUMMARY | 2022-06-18 16:07 | XMS_ITS | Encounter Summary ---
:1965 Author Organization [facility] Address [address] [place] [address] Care Team Providers Name Role Phone Elsewhere, Pcp Primary Care Provider Unavailable Encounter Details Date Type Department Care Team Description 10/08/2021 Clinical Communication Department of Oncology Taina Mora, in [facility] [phone] [address] [facility] (Work) [place] [address] Social History Tobacco Use Types Packs/Day Years [...] How often do you attend sikhism or denominational services? Never 01/15/2021 Do you [...] at Date Recorded Male 08/18/2021 2:55 PM BRICK DROPPER documented as of this encounter Miscellaneous Notes Telephone Encounter - Emma Mora R.N. - 10/08/2021 3:30 PM CST ASSESSMENT Mr. Campbell reports that he has developed a papulopustular like rash on his back. He reports that at first they were a bit more painful and itchy. However, he has not scratched them. They are improving without any current intervention. He just wanted to let us know that this did happen after his last treatment. He is using mild soaps as well as Vanicream after showering. I encouraged him to continue this. We discussed he should reach out to us if he has uncontrollable itching, new redness, pain or if the rash spreads. We also discussed reporting any other new symptoms. PLAN See above. Disposition/Recommendation: See above. . Information/Education: patient/caller able to teach back. Caller agreeable to plan of care: yes. The following references were used: nursing clinical judgement K DROPPER documented in this encounter Plan of Treatment Upcoming Encounters Date Type Specialty Care Team Description 06/22/2022 Lab Laboratory Medicine Maria Del Rosario Gomez AP RN, C.N.P., M.S. [address] [place] [phone] (Mj godoy) 06/22/2022 Infusion Oncology Maria Del Rosario Gomez APRN, C.N .P., M.S. [address] [place] [phone] (Mj godoy) 06/29/2022 Lab [facility], C.N.P., M.S. [address] [place] [phone] (Mj godoy) 06/29/2022 Infusion Oncology Maria Del Rosario Gomez APRN, C.N .P., M.S. [address] [place] [phone] (Mj godoy) documented as of this encounter Visit Diagnoses Not on filedocumented in this encounter Additional Health Concerns Assessment Noted Time PHQ-9 Depression Total Score: 2 10/01/2021 10:34 AM CS T documented as of this encounter Care Teams Curbstone Setter Relationship Specialty Start Date End Date Elsewhere, Pcp PCP - General Family Medicine 08/12/20 documented as of this encounter
--- OUTSIDE RECORDS SUMMARY | 2022-06-18 16:07 | XMS_ITS | Encounter Summary ---
:1965 Author Organization [facility] Address [address] [place] [address] Care Team Providers Name Role Phone Elsewhere, [...] LIPOSOME 1 MG UT FLUOROURACIL INJECTION [address] [place] [address] [place] [phone] Referral ID Status Reason Start Date Expiration Date Visits Requ ested Visits Authorized [id number] Closed 08/27/2021 08/27/2022 18 18 Encounter Details Date Type Department Care Team Description 09/17/2021 Lab Department of Laboratory Everette Zarco rt Secondary Malignant Neoplasm Liver (HCC) (Primary Dx); Medicine and Pathology, R, M.D. Malignant Neoplasm Of Pancreas (HCC); [place] [address] [place] [address] [place] [id number] [place] [phone] Social History Tobacco Use Types Packs/Day Years [...] How often do you attend buddhist or alevism services? 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 [address] [place] [phone] (Mj godoy) 06/22/2022 Infusion Oncology Maria Del Rosario Gomez APRN, C.N .P., M.S. [address] [place] [phone] (Mj godoy) 06/29/2022 Lab Laboratory Medicine Maria Del Rosario Gomez AP RN, C.N.P., M.S. [address] [place] [phone] (Mj godoy) 06/29/2022 Infusion Oncology Maria Del Rosario Gomez APRN, C.N .P., M.S. [address] [place] [phone] (Mj godoy) documented as of this encounter Procedures Procedure Name Priority Date/Time Associated Comments Diagnosis MISC RESEARCH ORDER, B Routine 09/17/2021 8:53 Malignant Neopl asm Results for this AM MARKETING STRATEGY MANAGER Of Pancreas (HCC) procedure are in the results section. CBC WITH DIFFERENTIAL, B Routine 09/17/2021 8:53 Secondary Results for this AM MARKETING STRATEGY MANAGER Malignant Neoplasm procedure are in Liver (HCC) the results Malignant Neoplasm section. Of Pancreas (HCC) ALANINE AMINOTRANSFERASE Routine 09/17/2021 8:53 Secondary Results for this (ALT), S/P AM MARKETING STRATEGY MANAGER Malignant Neoplasm procedure are in Liver (HCC) the results Malignant Neoplasm section. Of Pancreas (HCC) ASPARTATE Routine 09/17/2021 8:53 Secondary Results for this AMINOTRANSFERASE (AST), AM MARKETING STRATEGY MANAGER Malignant Neoplas m procedure are in S/P Liver (HCC) the results Malignant Neoplasm section. Of Pancreas (HCC) PHOSPHORUS (INORGANIC), Routine 09/17/2021 8:53 Secondary R esults for this S AM MARKETING STRATEGY MANAGER Malignant Neoplasm procedure are in Liver (HCC) the results Malignant Neoplasm section. Of Pancreas (HCC) ALKALINE PHOSPHATASE, Routine 09/17/2021 8:53 Secondary Res ults for this S/P AM MARKETING STRATEGY MANAGER Malignant Neoplasm procedure are in Liver (HCC) the results Malignant Neoplasm section. Of Pancreas (HCC) MAGNESIUM, S Routine 09/17/2021 8:53 Secondary Results for this AM MARKETING STRATEGY MANAGER Malignant Neoplasm procedure are in Liver (HCC) the results Malignant Neoplasm section. Of Pancreas (HCC) BILIRUBIN, TOT, S/P Routine 09/17/2021 8:53 Secondary Resul ts for this AM MARKETING STRATEGY MANAGER Malignant Neoplasm procedure are in Liver (HCC) the results Malignant Neoplasm section. Of Pancreas (HCC) ALBUMIN, S/P Routine 09/17/2021 8:53 Secondary Results for this AM MARKETING STRATEGY MANAGER Malignant Neoplasm procedure are in Liver (HCC) the results Malignant Neoplasm section. Of Pancreas (HCC) BASIC METABOLIC PANEL, Routine 09/17/2021 8:53 Secondary Re sults for this S/P AM MARKETING STRATEGY MANAGER Malignant Neoplasm procedure are in Liver (HCC) the results Malignant Neoplasm section. Of Pancreas (HCC) documented in this encounter Results Miscellaneous Research, B (09/17/2021 8:53 AM MARKETING STRATEGY MANAGER) P athologist Signature Number of 3 09/17/2021 HSS Specimens 8:53 AM MARKETING STRATEGY MANAGER Specimen Anatomical Collection Method Collection Time Receive d Time (Source) Location / / Volume Laterality Varies (Blood, 09/17/2021 8:53 AM 022 8:53 Venous) MARKETING STRATEGY MANAGER AM MARKETING STRATEGY MANAGER Vladislav Zarco M.D. LAB RESEARCH NO RESULT VERENICE MCFADDEN Performing Organization Address City/State/ZIP Code Phon e Number [facility] - [address] [place], [place] [address] [facility] [place], [place] [id number] [place] [address] (ABNORMAL) ALT (Alanine Aminotransferase) (09/17/2021 8:53 AM MARKETING STRATEGY MANAGER) [facility] Method Time Signature Alanine 175 (H) 7 - 55 09/17/2021 DTL Aminotransferase U/L 9:40 AM MARKETING STRATEGY MANAGER (ALT), S Specimen Anatomical Collection Method Collection Time Receive d Time (Source) Location / / Volume Laterality Blood (Blood, 09/17/2021 8:53 AM 09/17/19 22 9:23 Venous) MARKETING STRATEGY MANAGER AM MARKETING STRATEGY MANAGER Vladislav Zarco M.D. LAB BLOOD ADD-ON Performing Organization Address City/[facility] Code Phon e Number [facility] - [address] (ABNORMAL) AST (Aspartate Aminotransferase) (09/17/2021 8:53 AM MARKETING STRATEGY MANAGER) [facility] Method Time Signature Aspartate 65 (H) 8 - 48 09/17/2021 DTL Aminotransferase U/L 9:39 AM MARKETING STRATEGY MANAGER (AST), P Specimen Anatomical Collection Method Collection Time Receive d Time (Source) Location / / Volume Laterality Blood (Blood, 09/17/2021 8:53 AM 09/17/19 22 9:17 Venous) MARKETING STRATEGY MANAGER AM MARKETING STRATEGY MANAGER Vladislav Zarco M.D. LAB BLOOD ADD-ON Performing Organization Address City/State/ZIP Code Phon e Number [facility] - [address] [place] [address] First [facility] Bilirubin, Total (09/17/2021 8:53 AM MARKETING STRATEGY MANAGER) P athologist Signature Bilirubin, 0.6 <=1.2 mg/dL 09/17/2021 DTL Total, P 9:39 AM MARKETING STRATEGY MANAGER Specimen Anatomical Collection Method Collection Time Receive d Time (Source) Location / / Volume Laterality Blood (Blood, 09/17/2021 8:53 AM 09/17/19 22 9:17 Venous) MARKETING STRATEGY MANAGER AM MARKETING STRATEGY MANAGER Vladislav Zarco M.D. LAB BLOOD ADD-ON Performing Organization Address City/State/ZIP Code Phon e Number [facility] - [address] [place], [place] [address] [facility] [place], [place] [phone] [place] [address] (ABNORMAL) Alkaline Phosphatase (09/17/2021 8:53 AM MARKETING STRATEGY MANAGER) P athologist Signature Alkaline 223 (H) 40 - 129 09/17/2021 DTL Phosphatase, S U/L 9:40 AM MARKETING STRATEGY MANAGER Specimen Anatomical Collection Method Collection Time Receive d Time (Source) Location / / Volume Laterality Blood (Blood, 09/17/2021 8:53 AM 09/17/19 22 9:23 Venous) MARKETING STRATEGY MANAGER AM MARKETING STRATEGY MANAGER Vladislav Zarco M.D. LAB BLOOD ADD-ON Performing Organization Address City/State/ZIP Code Phon e Number [facility] - [address] [place], [place] [address] [facility] [place], [place] [phone] [place] [address] Magnesium (09/17/2021 8:53 AM MARKETING STRATEGY MANAGER) P athologist Signature Magnesium, S 2.1 1.7 - 2.3 09/17/2021 DTL mg/dL 9:40 AM MARKETING STRATEGY MANAGER Specimen Anatomical Collection Method Collection Time Receive d Time (Source) Location / / Volume Laterality Blood (Blood, 09/17/2021 8:53 AM 09/17/19 22 9:23 Venous) MARKETING STRATEGY MANAGER AM MARKETING STRATEGY MANAGER Vladislav Zraco M.D. LAB BLOOD ADD-ON Performing Organization Address City/State/ZIP Code Phon e Number [facility] - [address] [place], [place] [address] [facility] [place] [address] [facility] [address] Phosphorus Inorganic (09/17/2021 8:53 AM MARKETING STRATEGY MANAGER) P athologist Signature Phosphorus 3.5 2.5 - 4.5 09/17/2021 DTL (Inorganic), S mg/dL 9:40 AM MARKETING STRATEGY MANAGER Specimen Anatomical Collection Method Collection Time Receive d Time (Source) Location / / Volume Laterality Blood (Blood, 09/17/2021 8:53 AM 09/17/19 9:23 Venous) MARKETING STRATEGY MANAGER AM MARKETING STRATEGY MANAGER Vladislav Zarco M.D. LAB BLOOD ADD-ON Performing Organization Address City/[facility] Phon e Number [facility] - [address] Albumin (09/17/2021 8:53 AM MARKETING STRATEGY MANAGER) P athologist Signature Albumin, S 4.1 3.5 - 5.0 09/17/2021 DTL g/dL 9:40 AM MARKETING STRATEGY MANAGER Specimen Anatomical Collection Method Collection Time Receive d Time (Source) Location / / Volume Laterality Blood (Blood, 09/17/2021 8:53 AM 09/17/19 9:23 Venous) MARKETING STRATEGY MANAGER AM MARKETING STRATEGY MANAGER Vladislav Zarco M.D. LAB BLOOD ADD-ON Performing Organization Address City/[facility] Phon e Number [facility] - [address] Basic Metabolic Panel (09/17/2021 8:53 AM MARKETING STRATEGY MANAGER) P athologist Signature Potassium, P 4.0 3.6 - 5.2 09/17/2021 DTL mmol/L 9:39 AM MARKETING STRATEGY MANAGER Sodium, P 141 135 - 145 09/17/2021 DTL mmol/L 9:39 AM MARKETING STRATEGY MANAGER Chloride, P 105 98 - 107 09/17/2021 DTL mmol/L 9:39 AM MARKETING STRATEGY MANAGER Bicarbonate, P 27 22 - 29 09/17/2021 DTL mmol/L 9:39 AM MARKETING STRATEGY MANAGER Anion Gap, P 9 7 - 15 09/17/2021 DTL 9:39 AM MARKETING STRATEGY MANAGER BUN (Blood Urea 14 8 - 24 09/17/2021 DTL Nitrogen), P mg/dL 9:39 AM MARKETING STRATEGY MANAGER Creatinine 0.88 0.74 - 09/17/2021 DTL 1.35 mg/dL 9:39 AM MARKETING STRATEGY MANAGER eGFR-Black/Afric >90 >=60 09/17/2021 DTL an Yemeni mL/min/BSA 9:39 AM MARKETING STRATEGY MANAGER Comment: ----ADDITIONAL INFORMATION---- Estimated GFR calculated using the 2009 CKD_EPI creatinine equation. eGFR Non-Black/ >90 >=60 mL/min/BSA 9:39 AM MARKETING STRATEGY MANAGER DTL Comment: ----ADDITIONAL INFORMATION---- Estimated GFR calculated using the 2009 CKD_EPI creatinine equation. Calcium, Total, P 9.2 8.6 - 10.0 mg/dL 09/17/2021 9:39 AM MARKETING STRATEGY MANAGER DTL Glucose, P 99 70 - 140 mg/dL 09/17/2021 9:39 AM MARKETING STRATEGY MANAGER D TL Specimen Anatomical Collection Method Collection Time Receive d Time (Source) Location / / Volume Laterality Blood (Blood, 09/17/2021 8:53 AM 09/17/19 9:17 Venous) MARKETING STRATEGY MANAGER AM MARKETING STRATEGY MANAGER Vladislav Zarco M.D. LAB BLOOD ADD-ON Performing Organization Address City/State/ZIP Code Phon e Number [facility] - 200 [place], [place] [address] [facility] [place] [address] Laboratories-[facility] 200 [facility] (ABNORMAL) CBC with Differential, Blood (09/17/2021 8:53 AM MARKETING STRATEGY MANAGER) [facility] gist Method Time Signature Hemoglobin 12.4 (L) 13.2 - 09/17/2021 DTL 16.6 g/dL 9:18 AM MARKETING STRATEGY MANAGER Hematocrit 38.0 (L) 38.3 - 09/17/2021 DTL 48.6 % 9:18 AM MARKETING STRATEGY MANAGER Erythrocytes 4.49 4.35 - 09/17/2021 DTL 5.65 9:18 AM MARKETING STRATEGY MANAGER x10(12)/L MCV 84.6 78.2 - 09/17/2021 DTL 97.9 fL 9:18 AM MARKETING STRATEGY MANAGER RBC Distrib Width 14.4 11.8 - 09/17/2021 DTL 14.5 % 9:18 AM MARKETING STRATEGY MANAGER Platelet Count 124 (L) 135 - 317 09/17/2021 DTL x10(9)/L 9:18 AM MARKETING STRATEGY MANAGER Leukocytes 4.0 3.4 - 9.6 09/17/2021 DTL x10(9)/L 9:18 AM MARKETING STRATEGY MANAGER Neutrophils 2.47 1.56 - 09/17/2021 DTL 6.45 9:18 AM MARKETING STRATEGY MANAGER x10(9)/L Lymphocytes 0.65 (L) 0.95 - 09/17/2021 DTL 3.07 9:18 AM MARKETING STRATEGY MANAGER x10(9)/L Monocytes 0.60 0.26 - 09/17/2021 DTL 0.81 9:18 AM MARKETING STRATEGY MANAGER x10(9)/L Eosinophils 0.22 0.03 - 09/17/2021 DTL 0.48 9:18 AM MARKETING STRATEGY MANAGER x10(9)/L Basophils <0.03 0.01 - 09/17/2021 DTL 0.08 9:18 AM MARKETING STRATEGY MANAGER x10(9)/L Specimen Anatomical Collection Method Collection Time Receive d Time (Source) Location / / Volume Laterality Blood (Blood, 09/17/2021 8:53 AM 09/17/19 9:08 Venous) MARKETING STRATEGY MANAGER AM MARKETING STRATEGY MANAGER Vladislav Zarco M.D. LAB BLOOD ADD-ON Performing Organization Address City/State/ZIP Code Phon e Number [facility] - [facility] [place], [place] [address] [facility] [place] [address] Laboratories-[facility] [address] documented in this encounter Visit Diagnoses Diagnosis Secondary Malignant Neoplasm Liver (HCC) - Primary Malignant Neoplasm Of Pancreas (HCC) Bacteremia documented in this encounter Administered Medications Inactive Administered Medications - up to 3 most recent administrations Medication Order MAR Action Action Date Dose Rate Site heparin flush 500 Units Given 09/17/2021 8:55 AM MARKETING STRATEGY MANAGER 500 Units 500 Units, intra-catheter, As needed, line care, Starting on Mon09/17/21 at 0854, When no infusion to maintain patency: For IVAD accessed, not in use, and/or prior to hospital discharge, flush every 7 days after 0.9% preservative-free NaCL flush. For IVAD NOT accessed or used, flush every 4 weeks after 0.9% preservative-free NaCL flush. sodium chloride 0.9 % injection 10 mL Given 09/17/2021 8:45 AM MARKETING STRATEGY MANAGER 10 mL 10 mL, intra-catheter, As needed, line care, Starting on Mon09/17/21 at 0854, When IVAD Accessed and in Use: Flush prior to and following infusion, between multiple consecutive infusions, and prior to blood sampling. sodium chloride 0.9 % injection 20 mL Given 09/17/2021 8:55 AM MARKETING STRATEGY MANAGER 20 mL 20 mL, intra-catheter, As needed, line care, Starting on Mon09/17/21 at 0854, When IVAD Accessed and in Use: Flush post blood transfusion or post blood sampling. documented in this encounter Care Teams Drafter Relationship Specialty Start Date End Date Elsewhere, Pcp PCP - General Family Medicine 08/12/20 documented as of this encounter
--- OUTSIDE RECORDS SUMMARY | 2022-06-18 16:07 | XMS_ITS | Encounter Summary ---
:1965 Author Organization [facility] Address [address] [place] [address] Care Team Providers Name Role Phone Elsewhere, Pcp Primary Care Provider Unavailable Reason for Visit Reason Comments SX-abdominal pain Encounter Details Date Type Department Care Team Description 09/21/2021 Clinical Department of usiewicz, SX-abdominal pain Communication Oncology in Vy Hernandez [place], R.NRiaz [place] [address] [facility] [address] [place] [phone] Social History Tobacco Use Types Packs/Day Years [...] How often do you attend quaker or sabianism services? Never 01/15/2021 Do you [...] at Date Recorded Male 08/18/2021 2:55 PM LOBSTER CATCHER documented as of this encounter Miscellaneous Notes Telephone Encounter - Emma Mora R.N. - 09/21/2021 1:46 PM CST ASSESSMENT Mr. Campbell reports new abdominal pain that started yesterday evening. He describes this as sharp and intermittent in nature. These episodes last approximately 30 minutes to 1 hour. He has not tried any intervention to help with the pain. However, he does describe it as getting better after being ableto expel flatulence. PLAN I discussed with Dr. Zarco and we will obtain CMP locally in [place]. I instructed him that any new, sharp intolerable pain should warrant ED evaluation. He stated understanding with this plan of care. Disposition/Recommendation: recommended continue engagement in self-management activities. Information/Education: patient/caller able to teach back. Caller agreeable to plan of care: yes. The following references were used: nursing clinical judgement and provider Dr. Zaroc. TER CATCHER Telephone Encounter - Herminia Knott - 09/21/2021 10:37 AM CST Do we have a valid auth to speak with caller? Patient Reason for call: Patient calls stating that he started to experience increased lower abdominal pain yesterday. He did also experience this this morning but yesterday the pain was really bad. He describes the pain as cramping and makes him buckle over. He did not do anything specific to get rid of the pain, it just slowly went away on this own. Patient is wondering what might be causing this and how to manage? Please review and call patient. Thank you, Angelita RST ONC [facility] AA POD 1 TER CATCHER documented in this encounter Plan of Treatment Upcoming Encounters Date Type Specialty Care Team Description 06/22/2022 Lab Laboratory Medicine Maria Del Rosario Gomez AP RN, C.N.P., M.S. [address] [place] [phone] (Wo rk) 06/22/2022 [facility] [address] [place], [place] [phone] (Mj rk) 06/29/2022 Lab Laboratory Medicine [facility] AD Hernandez RN, C.N.P., M.S. [address] [place], [place] [phone] (Mj rk) 06/29/2022 [facility]., M.S. [address] [place], [place] [phone] (Mj rk) documented as of this encounter Results (ABNORMAL) Comprehensive Metabolic Panel (09/24/2021 10:07 AM LOBSTER CATCHER) P athologist Signature Potassium, S 4.2 3.6 - 5.2 09/24/2021 DTL mmol/L 11:23 AM LOBSTER CATCHER Sodium, S 139 135 - 145 09/24/2021 DTL mmol/L 11:23 AM LOBSTER CATCHER Chloride, S 103 98 - 107 09/24/2021 DTL mmol/L 11:23 AM LOBSTER CATCHER Bicarbonate, S 28 22 - 29 09/24/2021 DTL mmol/L 11:23 AM LOBSTER CATCHER Anion Gap 8 7 - 15 09/24/2021 DTL 11:23 AM LOBSTER CATCHER BUN (Blood Urea 16 8 - 24 09/24/2021 DTL Nitrogen), S mg/dL 11:23 AM LOBSTER CATCHER Creatinine 0.95 0.74 - 09/24/2021 DTL 1.35 mg/dL 11:23 AM LOBSTER CATCHER eGFR-Non 88 >=60 09/24/2021 DTL Black/ mL/min/BSA 11:23 AM LOBSTER CATCHER English Comment: ----ADDITIONAL INFORMATION---- Estimated GFR calculated using the 2009 CKD_EPI creatinine equation. eGFR-Black/ >90 >=60 mL/min/BSA 2021 11:23 AM LOBSTER CATCHER DTL Comment: ----ADDITIONAL INFORMATION---- Estimated GFR calculated using the 2009 CKD_EPI creatinine equation. Calcium, Total, S 8.9 8.6 - 10.0 mg/dL 09/24/2021 11:2 3 AM LOBSTER CATCHER DTL Glucose, S 87 70 - 140 mg/dL 09/24/2021 11:23 AM LOBSTER CATCHER DTL Protein, Total, S 6.6 6.3 - 7.9 g/dL 09/24/2021 11:23 AM LOBSTER CATCHER DTL Albumin, S 4.2 3.5 - 5.0 g/dL 09/24/2021 11:23 AM LOBSTER CATCHER DTL Aspartate Aminotransferase 22 8 - 48 U/L 09/24/2021 1 1:23 AM LOBSTER CATCHER DTL (AST), S Alkaline Phosphatase, S 166 (H) 40 - 129 U/L 09/24/2021 11 :23 AM LOBSTER CATCHER DTL Alanine Aminotransferase 54 7 - 55 U/L 09/24/2021 11: 23 AM LOBSTER CATCHER DTL (ALT), S Bilirubin, Total, S 0.5 <=1.2 mg/dL 09/24/2021 11:23 A M LOBSTER CATCHER DTL Specimen Anatomical Collection Method Collection Time Receive d Time (Source) Location / / Volume Laterality Blood (Blood, 09/24/2021 10:07 09/24/2021 Venous) AM LOBSTER CATCHER 11:03 AM LOBSTER CATCHER Vladislav Zarco M.D. LAB BLOOD ADD-ON Performing Organization Address City/State/ZIP Code Phon e Number [facility] - [address] [place], [place] [address] [facility] [place] [address] Laboratories-[facility] [address] documented in this encounter Visit Diagnoses Diagnosis Malignant Neoplasm Of Pancreas (HCC) - P rimary documented in this encounter Care Teams Bread Slicer Machine Relationship Specialty Start Date End Date Elsewhere, Pcp PCP - General Family Medicine 08/12/20 documented as of this encounter
--- OUTSIDE RECORDS SUMMARY | 2022-06-18 16:07 | XMS_ITS | Encounter Summary ---
:1965 Author Organization [facility] Address [address] [place] [address] Care Team Providers Name Role Phone Elsewhere, Pcp Primary Care Provider Unavailable Reason for Visit Reason Comments Intake Assessment Encounter Details Date Type Department Care Team Description 10/13/2021 Clinical Communication Department of Badlemar Zarco [place] Oncology in Vladislav Pereira M.D. [place], [facility] [address] [place], [place] [address] [place] [phone] [place], [place] [phone] (Work) [phone] Social History Tobacco Use Types Packs/Day Years [...] How often do you attend sikh or yazdanism services? 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 [address] [place] [phone] (Wo rk) 06/22/2022 Infusion Oncology Maria Del Rosario Gomez APRN, C.N .P., M.S. [address] [place] [phone] (Wo rk) 06/29/2022 Lab Laboratory Medicine Maria Del Rosario Gomez AP RN, C.N.P., M.S. [address] [place] [phone] (Wo rk) 06/29/2022 Infusion Oncology Maria Del Rosario Gomez APRN, C.N .P., M.S. [address] [place] [phone] (Wo rk) documented as of this encounter Visit Diagnoses Not on filedocumented in this encounter Additional Health Concerns Assessment Noted Time PHQ-9 Depression Total Score: 2 10/01/2021 10:34 AM CS T documented as of this encounter Care Teams Drafter Civil Engineering Relationship Specialty Start Date End Date Elsewhere, Pcp PCP - General Family Medicine 08/12/20 documented as of this encounter
--- OUTSIDE RECORDS SUMMARY | 2022-06-18 16:07 | XMS_ITS | Encounter Summary ---
:1965 Author Organization [facility] Address [address] [place] [address] Care Team Providers Name Role Phone Elsewhere, Pcp Primary Care Provider Unavailable Reason for Visit Outpatient (Routine) - Closed Specialty Diagnoses / Procedures Referred By Contact Refer red To Contact Diagnoses Malignant Neoplasm Of Pancreas (HCC) [facility] Procedures ONC Pump Disconnect Cristi, M.S. [address] [place] [phone] Referral ID Status Reason Start Date Expiration Date Visits Requ ested Visits Authorized [id number] Closed 09/17/2021 09/17/2022 1 1 Encounter Details Date Type Department Care Team Description 09/19/2021 Infusion Department of Infusion Maria Del Rosario Gomez, Malignant Neoplasm Of Pancreas (HCC) (Primary Dx); Therapy in [facility] Brian JACK, M.S. [address] [place] [phone] Social History Tobacco Use Types Packs/Day Years [...] How often do you attend yazidi or muslim services? 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 [address] [place] [phone] (Mj godoy) 06/22/2022 Infusion Oncology Maria Del Rosario Gomez APRN, C.N .P., M.S. [address] [place] [phone] (Mj godoy) 06/29/2022 Lab Laboratory Medicine Maria Del Rosario Gomez AP RN, C.N.P., M.S. [address] [place] [phone] (Mj godoy) 06/29/2022 Infusion Oncology Maria Del Rosario Gomez APRN, C.N .P., M.S. [address] [place] [phone] (Mj godoy) documented as of this encounter Visit Diagnoses Diagnosis Malignant Neoplasm Of Pancreas (HCC) - P rimary Bacteremia documented in this encounter Administered Medications Inactive Administered Medications - up to 3 most recent administrations Medication Order MAR Action Action Date Dose Rate Site heparin flush 500 Units Given 09/19/2021 12:53 PM NUCLEAR LOGGING ENGINEER 500 Units 500 Units, intra-catheter, As needed, line care, Starting on 09/19/21 at 1245, When no infusion to maintain patency: For IVAD accessed, not in use, and/or prior to hospital discharge, flush every 7 days after 0.9% preservative-free NaCL flush. For IVAD NOT accessed or used, flush every 4 weeks after 0.9% preservative-free NaCL flush. sodium chloride 0.9 % injection 10 mL Given 09/19/2021 12:53 PM NUCLEAR LOGGING ENGINEER 10 mL 10 mL, intra-catheter, As needed, line care, Starting on 09/19/21 at 1245, When IVAD Accessed and in Use: Flush prior to and following infusion, between multiple consecutive infusions, and prior to blood sampling. documented in this encounter Care Teams Blindstitch Lining Feller Relationship Specialty Start Date End Date Elsewhere, Pcp PCP - General Family Medicine 08/12/20 documented as of this encounter
--- OUTSIDE RECORDS SUMMARY | 2022-06-18 16:07 | XMS_ITS | Encounter Summary ---
:1965 Author Organization [facility] Address [address] [place] [address] Care Team Providers Name Role Phone Elsewhere, Pcp Primary Care Provider Unavailable Encounter Details Date Type Department Care Team Description 09/28/2021 Orders Only Department of Oncology in Imelda Williamson, CCRP [place], [place] [address] [facility] [address] [place] [phone] Social History Tobacco Use Types Packs/Day Years [...] How often do you attend christianity or yazdanism services? 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 [address] [place] [phone] (Wo rk) 06/22/2022 Infusion Oncology Maria Del Rosario Gomez APRN, C.N .P., M.S. [address] [place] [phone] (Wo rk) 06/29/2022 Lab Laboratory Medicine Maria Del Rosario Gomez AP RN, C.N.P., M.S. [address] [place] [address] [phone] (Wo rk) 06/29/2022 Infusion Oncology Maria Del Rosario Gomez APRN, C.N .P., M.S. [address] [place] [phone] (Wo rk) documented as of this encounter Visit Diagnoses Not on filedocumented in this encounter Care Teams Microbiology Professor Relationship Specialty Start Date End Date Elsewhere, Pcp PCP - General Family Medicine 08/12/20 documented as of this encounter
--- OUTSIDE RECORDS SUMMARY | 2022-06-18 16:07 | XMS_ITS | Encounter Summary ---
:1965 Author Organization [facility] Address [address] [place] [address] Care Team Providers Name Role Phone Elsewhere, Pcp Primary Care Provider Unavailable Encounter Details Date Type Department Care Team Description 10/08/2021 Clinical Communication Department of [place], Oncology in [place], [place] [phone] [address] [facility] (Work) [place] [address] Social History Tobacco Use Types Packs/Day Years [...] How often do you attend moravian or episcopalian services? 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 He also had some complaints about painful gas. Also would like his next scans scheduled and is wondering if his lab work can be moved to [facility] since it is closer for him. ROOM SPAWN MAKER documented in this encounter Plan of Treatment Upcoming Encounters Date Type Specialty Care Team Description 06/22/2022 Lab Laboratory Medicine Maria Del Rosario Gomez AP RN, C.N.P., M.S. [address] [place] [phone] (Mj godoy) 06/22/2022 Infusion Oncology Maria Del Rosario Gomez APRN, C.N .P., M.S. [address] [place] [address] [phone] (Mj godoy) 06/29/2022 Lab Laboratory Medicine Maria Del Rosario Gomez AP RN, C.N.P., M.S. [address] [place] [address] [phone] (Mj godoy) 06/29/2022 Infusion Oncology Maria Del Rosario Gomez APRN, C.N .P., M.S. [address] [place] [phone] (Mj godoy) documented as of this encounter Visit Diagnoses Not on filedocumented in this encounter Additional Health Concerns Assessment Noted Time PHQ-9 Depression Total Score: 2 10/01/2021 10:34 AM CS T documented as of this encounter Care Teams In Store Representative Relationship Specialty Start Date End Date Elsewhere, Pcp PCP - General Family Medicine 08/12/20 documented as of this encounter
--- OUTSIDE RECORDS SUMMARY | 2022-06-18 16:07 | XMS_ITS | Encounter Summary ---
:[address] [facility] Address [address] [place] [address] Care Team Providers Name Role Phone Elsewhere, Pcp Primary Care Provider Unavailable Encounter Details Date Type Department Care Team Description 09/16/2021 Orders Only Department of Oncology Tamara Escobar Malignant Neoplasm Of in [facility] [phone] Pancreas (HCC) (Primary [address] [facility] (Work) Dx) [place] [address] Social History Tobacco Use Types Packs/Day Years [...] er 01/15/2021 How often do you attend yazdanism or sikhism services? 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 [address] [place], [place] [phone] (Mj rk) 06/22/2022 [facility]fusion [facility] APRN, C.N .P., M.S. [address] [place] [phone] (Mj godoy) 06/29/2022 Lab [facility] RN, C.N.P., M.S. [address] [place] [phone] (Mj godoy) 06/29/2022 [facility]fusion [facility] APR[facility], C.N .P., M.S. [address] [place] [phone] (Mj godoy) documented as of this encounter Results Miscellaneous Research, B (09/17/2021 8:53 AM ELECTRONICS TEACHER) athologist Signature Number of 3 09/17/2021 [facility] Specimens 8:53 AM ELECTRONICS TEACHER Specimen Anatomical Collection Method Collection Time Receive d Time (Source) Location / / Volume Laterality Varies (Blood, 09/17/2021 8:53 AM 022 8:53 Venous) ELECTRONICS TEACHER AM ELECTRONICS TEACHER Vladislav Zarco M.D. LAB RESEARCH NO RESULT VERENICE MCFADDEN Performing Organization Address City/State/ZIP Code Phon e Number [facility] - [address] [place] [address] 05 [place] [address] [facility] 200 [facility] documented in this encounter Visit Diagnoses Diagnosis Malignant Neoplasm Of Pancreas (HCC) - P rimary documented in this encounter Care Teams Information Systems Professor Relationship Specialty Start Date End Date Elsewhere, Pcp PCP - General Family Medicine 08/12/20 documented as of this encounter
--- OUTSIDE RECORDS SUMMARY | 2022-06-18 16:07 | XMS_ITS | Encounter Summary ---
:1965 Author Organization [facility] Address [address] [place] [address] Care Team Providers Name Role Phone Elsewhere, Pcp Primary Care Provider Unavailable Reason for Visit Outpatient (Routine) - Closed Specialty Diagnoses / Procedures Referred By Contact Refer red To Contact Oncology Diagnoses Malignant Neoplasm Of Pancreas (HCC) Vladislav Zarco M.D. [facility] [address] [place] [phone] Referral ID Status Reason Start Date Expiration Date Visits Requ ested Visits Authorized [id number] Closed 09/17/2021 09/17/2022 1 1 Encounter Details Date Type Department Care Team Description 09/17/2021 Nurse Only Department of Oncology in Vladislav Potter M.D. [address] [place] [phone] [place], [place] Emma Mora RMariajose [address] [place] [phone] Social History Tobacco Use Types Packs/Day [...] How often do you attend cheondoism or rastafarian services? 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 documented as of this encounter Last Filed Vital Signs Vital Sign Reading Time Taken Comments Blood Pressure 107/74 09/17/2021 10:06 AM VENDOR SPECIALIST Pulse 75 09/17/2021 10:06 AM VENDOR SPECIALIST Temperature 35.5 ??C (95.9 ??F) 09/17/2021 10:06 AM VENDOR SPECIALIST Respiratory Rate 16 09/17/2021 10:06 AM VENDOR SPECIALIST Oxygen Saturation 99% 09/17/2021 10:06 AM VENDOR SPECIALIST Inhaled Oxygen Concentration - - Weight 76.9 kg (169 lb 8.5 oz) 09/17/2021 10:06 AM VENDOR SPECIALIST Height 176 cm (5' 9.29) 09/17/2021 10:06 AM VENDOR SPECIALIST Body Mass Index 24.83 09/17/2021 10:06 AM VENDOR SPECIALIST documented in this encounter Plan of Treatment Upcoming Encounters Date Type Specialty Care Team Description 06/22/2022 Lab Laboratory Medicine Maria Del Rosario Gomez AP RN, C.N.P., M.S. [address] [place] [phone] (Mj godoy) 06/22/2022 Infusion Oncology Maria Del Rosario Gomez APRN, C.N .P., M.S. [address] [place] [address] [phone] (Mj godoy) 06/29/2022 Lab Laboratory Medicine Maria Del Rosario Gomez AP RN, C.N.P., M.S. [address] [place] [address] [phone] (Mj godoy) 06/29/2022 Infusion Oncology Maria Del Rosario Gomez APRN, C.N .P., M.S. [address] [place], [place] [phone] (Wo rk) documented as of this encounter Visit Diagnoses Diagnosis Malignant Neoplasm Of Pancreas (HCC) - P rimary Secondary Malignant Neoplasm Liver (HCC) documented in this encounter Care Teams Glove Boarder Relationship Specialty Start Date End Date Elsewhere, Pcp PCP - General Family Medicine 08/12/20 documented as of this encounter
--- OUTSIDE RECORDS SUMMARY | 2022-06-18 16:07 | XMS_ITS | Encounter Summary ---
:1965 Author Organization [facility] Address [address] [place] [address] Care Team Providers Name Role Phone Elsewhere, Pcp Primary Care Provider Unavailable Reason for Visit Reason Comments Intake Assessment Encounter Details Date Type Department Care Team Description 09/29/2021 Clinical Communication Department of Wes Mantilla Assessment [facility] [address] [place], [place] [address] [place] [phone] [place], [place] [phone] (Work) [phone] Social History Tobacco Use Types Packs/Day Years [...] How often do you attend sabianism or buddhism services? 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 CTOR CALL documented in this encounter Plan of Treatment Upcoming Encounters Date Type Specialty Care Team Description 06/22/2022 Lab Laboratory Medicine Maria Del Rosario Gomez AP RN, C.N.P., M.S. [address] [place] [phone] (Wo rk) 06/22/2022 Infusion Oncology Maria Del Rosario Gomez APRN, C.N .P., M.S. [address] [place] [phone] (Wo rk) 06/29/2022 Lab Laboratory Medicine Maria Del Rosario Gomez AP RN, C.N.P., M.S. [address] [place] [phone] (Wo rk) 06/29/2022 Infusion Oncology Maria Del Rosario Gomez APRN, C.N .P., M.S. [address] [place] [phone] (Wo rk) documented as of this encounter Visit Diagnoses Not on filedocumented in this encounter Care Teams Artificial Snow Making Machine Operator Relationship Specialty Start Date End Date Elsewhere, Pcp PCP - General Family Medicine 08/12/20 documented as of this encounter
--- OUTSIDE RECORDS SUMMARY | 2022-06-18 16:07 | XMS_ITS | Encounter Summary ---
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 Rst Onc Rogo Procedures IL ONDANSETRON HCL INJECTION IL DEXAMETHASONE SODIUM PHOS IL LEUCOVORIN CALCIUM INJECTION IL PALONOSETRON HCL IL INJ IRINOTECAN LIPOSOME 1 MG IL FLUOROURACIL INJECTION [address] [place] [address] [place] [phone] Referral ID Status Reason Start Date Expiration Date Visits Requ ested Visits Authorized [id number] Closed 08/27/2021 08/27/2022 18 18 Encounter Details Date Type Department Care Team Description 10/01/2021 Lab Department of Laboratory Everette Zarco rt Secondary Malignant Neoplasm Liver (HCC) (Primary Dx); Medicine and Pathology, R, M.D. Malignant Neoplasm Of Pancreas (HCC); [place] [address] [place] [address] [place] [phone] [place] [address] [phone] Social History Tobacco Use Types Packs/Day Years [...] How often do you attend yarsani or amish services? Never 01/15/2021 Do you [...] at Date Recorded Male 08/18/2021 2:55 PM COMMERCIAL LOAN OFFICER documented as of this encounter Plan of Treatment Upcoming Encounters Date Type Specialty Care Team Description 06/22/2022 Lab Laboratory Medicine Maria Del Rosario Gomez AP RN, C.N.P., M.S. [address] [place] [phone] (Mj godoy) 06/22/2022 Infusion Oncology Maria Del Rosario Gomez APRN, C.N .P., M.S. [address] [place] [address] [phone] (Mj godoy) 06/29/2022 Lab Laboratory Medicine Maria Del Rosario Gomez AP RN, C.N.P., M.S. [address] [place] [address] [phone] (Mj godoy) 06/29/2022 Infusion Oncology Maria Del Rosario Gomez APRN, C.N .P., M.S. [address] [place] [address] [phone] (Mj godoy) documented as of this encounter Procedures Procedure Name Priority Date/Time Associated Comments Diagnosis MISC RESEARCH ORDER, B Routine 10/01/2021 11:30 Malignant Neop lasm Results for this AM COMMERCIAL LOAN OFFICER Of Pancreas (HCC) procedure are in the results section. CBC WITH DIFFERENTIAL, B Routine 10/01/2021 11:30 Secondary Results for this AM COMMERCIAL LOAN OFFICER Malignant Neoplasm procedure are in Liver (HCC) the results Malignant Neoplasm section. Of Pancreas (HCC) ASPARTATE Routine 10/01/2021 11:30 Secondary Results for this AMINOTRANSFERASE (AST), AM COMMERCIAL LOAN OFFICER Malignant Neoplas m procedure are in S/P Liver (HCC) the results Malignant Neoplasm section. Of Pancreas (HCC) BILIRUBIN, TOT, S/P Routine 10/01/2021 11:30 Secondary Resu lts for this AM COMMERCIAL LOAN OFFICER Malignant Neoplasm procedure are in Liver (HCC) the results Malignant Neoplasm section. Of Pancreas (HCC) BASIC METABOLIC PANEL, Routine 10/01/2021 11:30 Secondary R esults for this S/P AM COMMERCIAL LOAN OFFICER Malignant Neoplasm procedure are in Liver (HCC) the results Malignant Neoplasm section. Of Pancreas (HCC) ALANINE AMINOTRANSFERASE Routine 10/01/2021 11:29 Secondary Results for this (ALT), S/P AM COMMERCIAL LOAN OFFICER Malignant Neoplasm procedure are in Liver (HCC) the results Malignant Neoplasm section. Of Pancreas (HCC) PHOSPHORUS (INORGANIC), Routine 10/01/2021 11:29 Secondary Results for this S AM COMMERCIAL LOAN OFFICER Malignant Neoplasm procedure are in Liver (HCC) the results Malignant Neoplasm section. Of Pancreas (HCC) ALKALINE PHOSPHATASE, Routine 10/01/2021 11:29 Secondary Re sults for this S/P AM COMMERCIAL LOAN OFFICER Malignant Neoplasm procedure are in Liver (HCC) the results Malignant Neoplasm section. Of Pancreas (HCC) MAGNESIUM, S Routine 10/01/2021 11:29 Secondary Results for this AM COMMERCIAL LOAN OFFICER Malignant Neoplasm procedure are in Liver (HCC) the results Malignant Neoplasm section. Of Pancreas (HCC) ALBUMIN, S/P Routine 10/01/2021 11:29 Secondary Results for this AM COMMERCIAL LOAN OFFICER Malignant Neoplasm procedure are in Liver (HCC) the results Malignant Neoplasm section. Of Pancreas (HCC) documented in this encounter Results Miscellaneous Research, B (10/01/2021 11:30 AM COMMERCIAL LOAN OFFICER) P athologist Signature Number of 3 10/01/2021 HSS Specimens 11:30 AM COMMERCIAL LOAN OFFICER Specimen Anatomical Collection Method Collection Time Receive d Time (Source) Location / / Volume Laterality Varies (Blood, 10/01/2021 11:30 Venous) AM COMMERCIAL LOAN OFFICER 11:30 AM COMMERCIAL LOAN OFFICER Vladislav Zarco M.D. LAB RESEARCH NO RESULT VERENICE MCFADDEN Performing Organization Address City/[facility] Phon e Number [facility] - [address] [place], [place] [address] [facility] [place], [place] [id number] [place] [address] [address] [facility] AST (Aspartate Aminotransferase) (10/01/2021 11:30 AM COMMERCIAL LOAN OFFICER) Patholo gist Method Time Signature Aspartate 23 8 - 48 10/01/2021 METH Aminotransferase U/L 12:05 PM COMMERCIAL LOAN OFFICER (AST), P Specimen Anatomical Collection Method Collection Time Receive d Time (Source) Location / / Volume Laterality Blood (Blood, 10/01/2021 11:30 10/01/2021 Venous) AM COMMERCIAL LOAN OFFICER 11:41 AM COMMERCIAL LOAN OFFICER Vladislav Zarco M.D. LAB BLOOD ADD-ON Performing Organization Address City/[facility] Phon e Number [facility] - [address] [place], [place] [address] [address] [facility] Bilirubin, Total (10/01/2021 11:30 AM COMMERCIAL LOAN OFFICER) P athologist Signature Bilirubin, 0.4 <=1.2 mg/dL 10/01/2021 METH Total, P 12:05 PM COMMERCIAL LOAN OFFICER Specimen Anatomical Collection Method Collection Time Receive d Time (Source) Location / / Volume Laterality Blood (Blood, 10/01/2021 11:30 10/01/2021 Venous) AM COMMERCIAL LOAN OFFICER 11:41 AM COMMERCIAL LOAN OFFICER Vladislav Zarco M.D. LAB BLOOD ADD-ON Performing Organization Address City/[facility] Phon e Number [facility] - [address] [place], [place] [address] [facility] METH [address] [facility] Basic Metabolic Panel (10/01/2021 11:30 AM COMMERCIAL LOAN OFFICER) P athologist Signature Potassium, P 4.1 3.6 - 5.2 10/01/2021 METH mmol/L 12:05 PM COMMERCIAL LOAN OFFICER Sodium, P 140 135 - 145 10/01/2021 METH mmol/L 12:05 PM COMMERCIAL LOAN OFFICER Chloride, P 104 98 - 107 10/01/2021 METH mmol/L 12:05 PM COMMERCIAL LOAN OFFICER Bicarbonate, P 27 22 - 29 10/01/2021 METH mmol/L 12:05 PM COMMERCIAL LOAN OFFICER Anion Gap, P 9 7 - 15 10/01/2021 METH 12:05 PM COMMERCIAL LOAN OFFICER BUN (Blood Urea 17 8 - 24 10/01/2021 METH Nitrogen), P mg/dL 12:05 PM COMMERCIAL LOAN OFFICER Creatinine 0.81 0.74 - 10/01/2021 METH 1.35 mg/dL 12:05 PM COMMERCIAL LOAN OFFICER eGFR-Black/Afric >90 >=60 10/01/2021 METH an Israeli mL/min/BSA 12:05 PM COMMERCIAL LOAN OFFICER Comment: ----ADDITIONAL INFORMATION---- Estimated GFR calculated using the 2009 CKD_EPI creatinine equation. eGFR Non-Black/ >90 >=60 mL/min/BSA 10/01/2021 12:05 PM COMMERCIAL LOAN OFFICER METH Comment: ----ADDITIONAL INFORMATION---- Estimated GFR calculated using the 2009 CKD_EPI creatinine equation. Calcium, Total, P 9.4 8.6 - 10.0 mg/dL 10/01/2021 12:0 5 PM COMMERCIAL LOAN OFFICER METH Glucose, P 91 70 - 140 mg/dL 10/01/2021 12:05 PM COMMERCIAL LOAN OFFICER METH Specimen Anatomical Collection Method Collection Time Receive d Time (Source) Location / / Volume Laterality Blood (Blood, 10/01/2021 11:30 10/01/2021 Venous) AM COMMERCIAL LOAN OFFICER 11:41 AM COMMERCIAL LOAN OFFICER Vladislav Zarco M.D. LAB BLOOD ADD-ON Performing Organization Address City/State/ZIP Code Phon e Number [facility] - [address] [place], [place] [address] [facility] [place] [address] Laboratories-[facility] [address] (ABNORMAL) CBC with Differential, Blood (10/01/2021 11:30 AM COMMERCIAL LOAN OFFICER) [facility] gist Method Time Signature Hemoglobin 12.0 (L) 13.2 - 10/01/2021 DTL 16.6 g/dL 11:53 AM COMMERCIAL LOAN OFFICER Hematocrit 36.6 (L) 38.3 - 10/01/2021 DTL 48.6 % 11:53 AM COMMERCIAL LOAN OFFICER Erythrocytes 4.38 4.35 - 10/01/2021 DTL 5.65 11:53 AM COMMERCIAL LOAN OFFICER x10(12)/L MCV 83.6 78.2 - 10/01/2021 DTL 97.9 fL 11:53 AM COMMERCIAL LOAN OFFICER RBC Distrib Width 14.6 (H) 11.8 - 10/01/2021 DTL 14.5 % 11:53 AM COMMERCIAL LOAN OFFICER Platelet Count 145 135 - 317 10/01/2021 DTL x10(9)/L 11:53 AM COMMERCIAL LOAN OFFICER Leukocytes 3.3 (L) 3.4 - 9.6 10/01/2021 DTL x10(9)/L 11:53 AM COMMERCIAL LOAN OFFICER Neutrophils 2.45 1.56 - 10/01/2021 DTL 6.45 11:53 AM COMMERCIAL LOAN OFFICER x10(9)/L Lymphocytes 0.44 (L) 0.95 - 10/01/2021 DTL 3.07 11:53 AM COMMERCIAL LOAN OFFICER x10(9)/L Monocytes 0.32 0.26 - 10/01/2021 DTL 0.81 11:53 AM COMMERCIAL LOAN OFFICER x10(9)/L Eosinophils 0.10 0.03 - 10/01/2021 DTL 0.48 11:53 AM COMMERCIAL LOAN OFFICER x10(9)/L Basophils <0.03 0.01 - 10/01/2021 DTL 0.08 11:53 AM COMMERCIAL LOAN OFFICER x10(9)/L Specimen Anatomical Collection Method Collection Time Receive d Time (Source) Location / / Volume Laterality Blood (Blood, 10/01/2021 11:30 10/01/2021 Venous) AM COMMERCIAL LOAN OFFICER 11:47 AM COMMERCIAL LOAN OFFICER Vladislav Zarco M.D. LAB BLOOD ADD-ON Performing Organization Address City/State/ZIP Code Phon e Number [facility] - [address] [place], [place] [address] [facility] [place] [address] Laboratories-[facility] [address] ALT (Alanine Aminotransferase) (10/01/2021 11:29 AM COMMERCIAL LOAN OFFICER) [facility] gist Method Time Signature Alanine 33 7 - 55 10/01/2021 DTL Aminotransferase U/L 12:22 PM COMMERCIAL LOAN OFFICER (ALT), S Specimen Anatomical Collection Method Collection Time Receive d Time (Source) Location / / Volume Laterality Blood (Blood, 10/01/2021 11:29 10/01/2021 Venous) AM COMMERCIAL LOAN OFFICER 11:51 AM COMMERCIAL LOAN OFFICER Vladislav Zarco M.D. LAB BLOOD ADD-ON Performing Organization Address City/State/ZIP Code Phon e Number [facility] - [address] [place], [place] [address] [place] [address] [facility] [address] [facility] (ABNORMAL) Alkaline Phosphatase (10/01/2021 11:29 AM COMMERCIAL LOAN OFFICER) P athologist Signature Alkaline 144 (H) 40 - 129 10/01/2021 DTL Phosphatase, S U/L 12:22 PM COMMERCIAL LOAN OFFICER Specimen Anatomical Collection Method Collection Time Receive d Time (Source) Location / / Volume Laterality Blood (Blood, 10/01/2021 11:29 10/01/2021 Venous) AM COMMERCIAL LOAN OFFICER 11:51 AM COMMERCIAL LOAN OFFICER Vladislav Zarco M.D. LAB BLOOD ADD-ON Performing Organization Address City/[facility]/ZIP Code Phon e Number [facility] - [address] [place], [place] [address] [place] [address] [place] [address] [facility] Magnesium (10/01/2021 11:29 AM COMMERCIAL LOAN OFFICER) P athologist Signature Magnesium, S 2.0 1.7 - 2.3 10/01/2021 DTL mg/dL 12:22 PM COMMERCIAL LOAN OFFICER Specimen Anatomical Collection Method Collection Time Receive d Time (Source) Location / / Volume Laterality Blood (Blood, 10/01/2021 11:29 10/01/2021 Venous) AM COMMERCIAL LOAN OFFICER 11:51 AM COMMERCIAL LOAN OFFICER Vladislav Zarco M.D. LAB BLOOD ADD-ON Performing Organization Address City/State/ZIP Code Phon e Number [facility] - [address] [place], [place] [address] [place], [place] [phone] [address] Phosphorus Inorganic (10/01/2021 11:29 AM COMMERCIAL LOAN OFFICER) P athologist Signature Phosphorus 3.8 2.5 - 4.5 10/01/2021 DTL (Inorganic), S mg/dL 12:22 PM COMMERCIAL LOAN OFFICER Specimen Anatomical Collection Method Collection Time Receive d Time (Source) Location / / Volume Laterality Blood (Blood, 10/01/2021 11:29 10/01/2021 Venous) AM COMMERCIAL LOAN OFFICER 11:51 AM COMMERCIAL LOAN OFFICER Vladislav Zarco M.D. LAB BLOOD ADD-ON Performing Organization Address City/State/[facility] Phon e Number [facility] - [address] [place], [place] [address] [facility] [place] [address] Laboratories-[facility] [address] Albumin (10/01/2021 11:29 AM COMMERCIAL LOAN OFFICER) P athologist Signature Albumin, S 4.1 3.5 - 5.0 10/01/2021 DTL g/dL 12:22 PM COMMERCIAL LOAN OFFICER Specimen Anatomical Collection Method Collection Time Receive d Time (Source) Location / / Volume Laterality Blood (Blood, 10/01/2021 11:29 10/01/2021 Venous) AM COMMERCIAL LOAN OFFICER 11:51 AM COMMERCIAL LOAN OFFICER Vladislav Zarco M.D. LAB BLOOD ADD-ON Performing Organization Address City/State/[facility] Phon e Number [facility] - [address] [place], [place] [address] [place] [address] Laboratories-[address] documented in this encounter Visit Diagnoses Diagnosis Secondary Malignant Neoplasm Liver (HCC) - Primary Malignant Neoplasm Of Pancreas (HCC) Bacteremia documented in this encounter Administered Medications Inactive Administered Medications - up to 3 most recent administrations Medication Order MAR Action Action Date Dose Rate Site heparin flush 500 Units Given 10/01/2021 11:25 AM COMMERCIAL LOAN OFFICER 500 Units 500 Units, intra-catheter, As needed, line care, Starting on Mon10/01/21 at 1125, When no infusion to maintain patency: For IVAD accessed, not in use, and/or prior to hospital discharge, flush every 7 days after 0.9% preservative-free NaCL flush. For IVAD NOT accessed or used, flush every 4 weeks after 0.9% preservative-free NaCL flush. sodium chloride 0.9 % injection 10 mL Given 10/01/2021 11:15 AM COMMERCIAL LOAN OFFICER 10 mL 10 mL, intra-catheter, As needed, line care, Starting on Mon10/01/21 at 1125, When IVAD Accessed and in Use: Flush prior to and following infusion, between multiple consecutive infusions, and prior to blood sampling. sodium chloride 0.9 % injection 20 mL Given 10/01/2021 11:25 AM COMMERCIAL LOAN OFFICER 20 mL 20 mL, intra-catheter, As needed, line care, Starting on Mon10/01/21 at 1125, When IVAD Accessed and in Use: Flush post blood transfusion or post blood sampling. documented in this encounter Additional Health Concerns Assessment Noted Time PHQ-9 Depression Total Score: 2 10/01/2021 10:34 AM CS T documented as of this encounter Care Teams Manager Trade Relationship Specialty Start Date End Date Elsewhere, Pcp PCP - General Family Medicine 08/12/20 documented as of this encounter
--- OUTSIDE RECORDS SUMMARY | 2022-06-18 16:07 | XMS_ITS | Encounter Summary ---
:1965 Author Organization [facility] Address [address] [place] [address] Care Team Providers Name Role Phone Elsewhere, Pcp Primary Care Provider Unavailable Encounter Details Date Type Department Care Team Description 09/15/2021 Clinical Communication Department of Oncology Coreen Simon in [facility] [phone] [address] [facility] ([place]) [place] [address] Social History Tobacco Use Types Packs/Day Years [...] How often do you attend rastafari or hinduism services? 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 - 09/16/2021 10:56 AM CST ASSESSMENT Last fever was 100.7 degrees Farenheit around 2 pm on 09/15. Today he reports that he is less fatigued and afebrile. He is eating and drinking well. He denies any new symptoms. He has had one episode of diarrhea that he reports he has had off and on since starting the new therapy. He only notes one loose stool in the last 24 hours. He denies any nausea or vomiting. His ED workup was clear of any active signs of an infection. He reports they did get blood cultures and will call him with the results. We will wait for the records to upload in care everywhere and then review. PLAN I spoke with Maria Del Rosario Gomez APRN/CATHERINE who is ok with him getting treatment tomorrow if he continues to remain afebrile. I will follow up with our cold rolling coordinator to ensure no issues from a protocol standpoint. Update [id number] 09/16: I spoke with Dr. Mantilla who does not think the patient requires a COVID test at this time given his short febrile course without any other accompanying symptoms. If fever returns, we will instruct patient further. He has been afebrile for 24 hours now. Disposition/Recommendation: recommended continue engagement in self-management activities. Information/Education: patient/caller able to teach back. Caller agreeable to plan of care: yes. The following references were used: nursing clinical judgement and provider Maria Del Rosario MEDINA. STIVE TECHNOLOGY TRAINER Telephone Encounter - Emma Mora R.N. - 09/15/2021 2:35 PM CST ASSESSMENT Patient has been having fevers over the last 24 hours. He reports that he has been feeling more fatigued in addition to the fevers. His energy level has been minimal. He denies any nausea, vomiting, diarrhea, constipation, shortness of breath, urinary frequency, cough or any other new symptoms. PLAN Disposition/Recommendation: recommended to report to the nearest emergency department. Information/Education: patient/caller able to teach back. Caller agreeable to plan of care: yes. The following references were used: nursing clinical judgement. STIVE TECHNOLOGY TRAINER Telephone Encounter - Shawn Coreen Remy - 09/15/2021 2:05 PM CST Patient called study staff and expressed that they were not feeling well today. Mr. Campbell's has been taking his temp all day and they have been between 100.4 - 101. He also has felt exhausted and like he needed to lay down today. At the time of his phone call he had not yet taken any Tylenol for the fever. STIVE TECHNOLOGY TRAINER documented in this encounter Plan of Treatment Upcoming Encounters Date Type Specialty Care Team Description 06/22/2022 Lab Laboratory Medicine Maria Del Rosario Gomez AP RN, C.N.P., M.S. [address] [place] [phone] (Mj godoy) 06/22/2022 Infusion Oncology Maria Del Rosario Gomez APRN, C.N .P., M.S. [address] [place] [address] [phone] (Mj godoy) 06/29/2022 Lab Laboratory Medicine Maria Del Rosario Gomez AP RN, C.N.P., M.S. [address] [place] [address] [phone] (Mj godoy) 06/29/2022 Infusion Oncology Maria Del Rosario Gomez APRN, C.N .P., M.S. [address] [place] [address] [phone] (Mj godoy) documented as of this encounter Visit Diagnoses Not on filedocumented in this encounter Care Teams Powdered Sugar Pulverizer Operator Relationship Specialty Start Date End Date Elsewhere, Pcp PCP - General Family Medicine 08/12/20 documented as of this encounter
--- OUTSIDE RECORDS SUMMARY | 2022-06-18 16:07 | XMS_ITS | Encounter Summary ---
:1965 Author Organization [facility] Address [address] [place] [address] Care Team Providers Name Role Phone Elsewhere, Pcp Primary Care Provider Unavailable Reason for Visit Reason Onset Date Comments Clinical Trial Schedule 09/13/2021 Encounter Details Date Type Department Care Team Description 09/13/2021 Clinical Communication Department of Tamara Escobar Clinical Trial Oncology in [phone] Schedule [facility] ([facility]) [place] [address] [place] [address] Social History Tobacco Use Types Packs/Day Years [...] er 01/15/2021 How often do you attend presybeterian or mu-ism services? 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 [address] [place] [phone] (Wo rk) 06/22/2022 Infusion Oncology Maria Del Rosario Gomez APRN, C.N .P., M.S. [address] [place] [phone] (Wo rk) 06/29/2022 Lab Laboratory Medicine Maria Del Rosario Gomez AP RN, C.N.P., M.S. [address] [place] [phone] (Wo rk) 06/29/2022 Infusion Oncology Maria Del Rosario Gomez APRN, C.N .P., M.S. [address] [place] [phone] (Wo rk) documented as of this encounter Visit Diagnoses Not on filedocumented in this encounter Care Teams Medical Records Assistant Relationship Specialty Start Date End Date Elsewhere, Pcp PCP - General Family Medicine 08/12/20 documented as of this encounter
--- OUTSIDE RECORDS SUMMARY | 2022-06-18 16:08 | XMS_ITS | Encounter Summary ---
:1965 Author Organization [facility] Address [address] [place] [address] Care Team Providers Name Role Phone Elsewhere, Pcp Primary Care Provider Unavailable Reason for Visit Reason Comments Consult onc est gih pancreatic pre c hemo gib Outpatient (Routine) - Closed Specialty Diagnoses / Procedures Referred By Contact Refer red To Contact Oncology Diagnoses Malignant Neoplasm Of Pancreas (HCC) Vladislav Zarco M.D. [facility] [address] [place] [phone] Referral ID Status Reason Start Date Expiration Date Visits Requ ested Visits Authorized [id number] Closed 08/23/2021 08/23/2022 1 1 Encounter Details Date Type Department Care Team Description 08/27/2021 Office Visit Department of Anya Glass Malignant Neoplasm Of Oncology in L, STAFF COMMAND AND CONTROL OFFICER, C.N.P. Pancreas (HCC) [place], [place] [address] [place] [address] [place] [phone] Social History Tobacco Use Types Packs/Day Years [...] often do you attend oriental orthodox or restoration services? Never 01/15/2021 Do you [...] at Date Recorded Male 08/18/2021 2:55 PM MORTUARY BEAUTICIAN documented as of this encounter Last Filed Vital Signs Vital Sign Reading Time Taken Comments Blood Pressure 99/74 08/27/2021 9:23 AM MORTUARY BEAUTICIAN Pulse 87 08/27/2021 9:23 AM MORTUARY BEAUTICIAN Temperature 36.3 ??C (97.3 ??F) 08/27/2021 9:23 AM MORTUARY BEAUTICIAN Respiratory Rate - - Oxygen Saturation 98% 08/27/2021 9:23 AM MORTUARY BEAUTICIAN Inhaled Oxygen Concentration - - Weight 79.6 kg (175 lb 7.8 oz) 08/27/2021 9:23 AM MORTUARY BEAUTICIAN Height 178.9 cm (5' 10.43) 08/27/2021 9:23 AM MORTUARY BEAUTICIAN Body Mass Index 24.87 08/27/2021 9:23 AM MORTUARY BEAUTICIAN documented in this encounter Progress Notes Anya Glass APRN, C.N.P. - 08/27/2021 9:30 AM CST LOCAL ONCOLOGIST No care athletic team physician to display PRIMARY [place] ONCOLOGIST Deborah Murray M.B.B.S. Maria Del Rosario Gomez APRN, C.N.P., M.S. CHIEF COMPLAINT / REASON FOR VISIT Adam Campbell is a 56 y.o. male who presents for evaluation of metastatic pancreatic adenocarcinoma HISTORY OF PRESENT ILLNESS Oncology History Oncology [...] (01/25/2021 - 03/02/2021) Site: Pancreas Technique: 3D RETAIL AGENT Goal: Curative Planned Treatment Start Date: 01/25/2021 01/25/2021 - 03/01/2021 Chemotherapy Gemcitabine ( with Radiation ) Start Date: 01/25/2021 08/13/2021 Genetic Testing and Tumor Genotyping [facility] pancreas panel negative Interval History by Emma Mora RN presents for evaluation of cycle 1, day 1 on clinical trial Study Title: A Phase 2 Study ofOnvansertib in Combination with Nanoliposomal Irinotecan, Leucovorin, and Fluorouracil for Second-Line Treatment of Patients with Metastatic Pancreatic Ductal Adenocarcinoma - CRDF-001 IRB#: [id number].We discussed any baseline toxicities he is experiencing daily. 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 He also reports ongoing arthritis. This arthritis frequently causes pain that is worse in the morning. He treats this with a half tablet of dilaudid every morning. His appetite has been much improved since being off of chemotherapy despite ongoingdysgeusia. He is working to find more palatable foods. He has regular bowel movements daily without supportive care medications. He does use pancreatic enzymes that have greatly aided his digestion. I have discussed these findings with Anya Glass APRN/CATHERINE. REVIEW OF SYSTEMS Pertinent items are noted in HPI; all other review of systems were negative. OBJECTIVE BP 99/74 (BP Location: Right arm, Patient Position: Sitting, Cuff Size: Regular) Pulse 87 Temp 36.3 ??C (Tympanic) Ht 178.9 cm Wt 79.6 kg SpO2 98% BMI 24.87 kg/m?? No data recorded PHYSICAL EXAM General: Well appearing 56 y.o. who is in no apparent distress. Appears to be at ECOG performance status 0 Skin: Non-jaundice. No rashes. Eyes: No scleral icterus. Lymph: Neck is supple. No palpable cervical, submandibular or supraclavicular lymphadenopathy. Heart: Regular, rate and rhythm. No murmurs, rubs or gallops. Lungs: Clear to auscultation bilaterally. Abdomen: Soft, nontender, nondistended without hepatosplenomegaly or mass. Extremities: No edema. Neuro: No focal deficits. CN 2-12 are grossly intact. Psych: Mood is pleasant, affect is appropriate to stated mood. DIAGNOSTICS: I have reviewed the pertinent labs and recent imaging studies. I agree with the interpretation as recorded. ASSESSMENT / PLAN #1 Metastatic pancreatic adenocarcinoma I have reviewed all above in depth with Mr. Campbell. Overall, Mr. Campbell is clinically doing quite well. He is wanting to move forward with participation in our clinical trial Naliri and Onvansertib. Given his problems with nausea on prior cycles, we will switch his antiemetics to a stronger IV antiemetic today, with Aloxi instead of IV and Emend. I did caution again is constipation. He has received chemotherapy education and had the chance to ask appropriate questions. He is very motivated to move forward with therapy which we will initiate today. He knows not to hesitate to contact us if there is any new concerns or questions arise at any time. He is comfortable this plan. PATIENT EDUCATION Ready to learn, no apparent learning barriers were identified; learning preferences include listening. Explained diagnosis and treatment plan; patient expressed understanding of the content. ADMINISTRATIVE BILLING I personally spent 40 minutes involved in the care of this patient on this date. UARY BEAUTICIAN documented in this encounter Plan of Treatment Upcoming Encounters Date Type Specialty Care Team Description 06/22/2022 Lab Laboratory Medicine Maria Del Rosario Gomez AP RN, C.N.P., M.S. [address] [place] [phone] (Wo jayne) 06/22/2022 [facility] M.S. [address] [place] [phone] (Wo rk) 06/29/2022 Lab [facility], C.N.P., M.S. [address] [place] [address] [phone] (Wo rk) 06/29/2022 [facility] C.N .P., M.S. [address] [place] [address] [phone] (Wo rk) documented as of this encounter Visit Diagnoses Diagnosis Malignant Neoplasm Of Pancreas (HCC) documented in this encounter Care Teams Medical Screener Relationship Specialty Start Date End Date Elsewhere, Pcp PCP - General Family Medicine 08/12/20 documented as of this encounter
--- OUTSIDE RECORDS SUMMARY | 2022-06-18 16:08 | XMS_ITS | Encounter Summary ---
:1965 Author Organization [facility] Address [address] [place] [address] Care Team Providers Name Role Phone Elsewhere, Pcp Primary Care Provider Unavailable Encounter Details Date Type Department Care Team Description 08/27/2021 Orders Only Department of Oncology in Alexandrea Caputo [place], [place] [address] [place] [phone] Social History Tobacco Use Types Packs/Day [...] often do you attend roman catholic or catholic services? 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 [address] [place] [address] [phone] (Mj rk) 06/22/2022 Infusion Oncology Maria Del Rosario Gomez APRN, C.N .P., M.S. [address] [place] [address] [phone] (Mj godoy) 06/29/2022 Lab Laboratory Medicine Maria Del Rosario Gomez AP RN, C.N.P., M.S. [address] [place] [address] [phone] (Mj godoy) 06/29/2022 Infusion Oncology Maria Del Rosario Gomez APRN, C.N .P., M.S. [address] [place] [phone] (Mj godoy) documented as of this encounter Visit Diagnoses Not on filedocumented in this encounter Care Teams Personnel Recruiter Relationship Specialty Start Date End Date Elsewhere, Pcp PCP - General Family Medicine 08/12/20 documented as of this encounter
--- OUTSIDE RECORDS SUMMARY | 2022-06-18 16:08 | XMS_ITS | Encounter Summary ---
:1965 Author Organization [facility] Address [address] [place] [address] Care Team Providers Name Role Phone Elsewhere, Pcp Primary Care Provider Unavailable Encounter Details Date Type Department Care Team Description 09/01/2021 Orders Only Department of Oncology Alexandrea Frank Secondary Malignant Neoplasm Liver (HCC) (Primary Dx); in [facility] Malignant Neoplasm Of Pancreas (HCC) [place] [phone] 200 [facility] (Work) [place] [address] Social History Tobacco Use Types Packs/Day Years [...] How often do you attend synagogue or taoist services? Never 01/15/2021 Do you [...] at Date Recorded Male 08/18/2021 2:55 PM CALL PERSON documented as of this encounter Plan of Treatment Upcoming Encounters Date Type Specialty Care Team Description 06/22/2022 Lab [facility], C.[facility]., M.S. [address] [place] [phone] (Wo rk) 06/22/2022 Infusion Oncology Maria Del Rosario Gomez APRN, C.N .P., M.S. [address] [place] [phone] (Wo rk) 06/29/2022 Lab [facility], C.N.P., M.S. [address] [place] [phone] (Wo rk) 06/29/2022 Infusion Oncology Maria Del Rosario Gomez APRN, C.N .P., M.S. [address] [place] [phone] (Wo rk) documented as of this encounter Visit Diagnoses Diagnosis Secondary Malignant Neoplasm Liver (HCC) - Primary Malignant Neoplasm Of Pancreas (HCC) documented in this encounter Care Teams Assistant Bookkeeper Relationship Specialty Start Date End Date Elsewhere, Pcp PCP - General Family Medicine 08/12/20 documented as of this encounter
--- OUTSIDE RECORDS SUMMARY | 2022-06-18 16:08 | XMS_ITS | Encounter Summary ---
:1965 Author Organization [facility] Address [address] [place] [address] Care Team Providers Name Role Phone Elsewhere, Pcp Primary Care Provider Unavailable Reason for Referral Outpatient (Routine) Specialty Diagnoses / Procedures Referred By Contact Refer red To Contact Oncology RST [address] [phone] Referral ID Status Reason Start Date Expiration Date Visits Requ ested Visits Authorized utpatient (Routine) Specialty Diagnoses / Procedures Referred By Contact Refer red To Contact Oncology RST [address] [phone] Referral ID Status Reason Start Date Expiration Date Visits Requ ested Visits Authorized Scheduling Instructions Hernan Jiménez 10 A [facility] report time of the provider visit. UNITY SERVICE SPECIALIST Specialty Diagnoses / Procedures Referred By Contact Refer red To Contact RST [facility] [address] [place] [phone] Referral ID Status Reason Start Date Expiration Date Visits Requ ested Visits Authorized UNITY SERVICE SPECIALIST Outpatient (Routine) - Closed Specialty Diagnoses / Procedures Referred By Contact Refer red To Contact Oncology Diagnoses Malignant Neoplasm Of Pancreas (HCC) Vladislav Zarco M.D. [place] [facility] 200 [place] [address] Referral ID Status Reason Start Date Expiration Date Visits Requ ested Visits Authorized [id number] Closed 08/27/2021 08/27/2022 1 1 Scheduling Instructions Hernan Jiménez 10 A [facility] report time of the provider visit. UNITY SERVICE SPECIALIST Encounter Details Date Type Department Care Team Description 08/27/2021 Orders Only Department of Oncology Tamara Escobar Malignant Neoplasm Of Pancreas (HCC) (Pr imary Dx); in [facility] [phone] Secondary Malignant Neoplasm Liver (HCC) 200 [facility] (Work) [place] [address] Social History Tobacco Use Types Packs/Day Years [...] er 01/15/2021 How often do you attend catholic or yarsanism services? Never 01/15/2021 Do you belong to any clubs or organizations such as catholic N o 01/15/2021 groups, unions, fraternal [...] at Date Recorded Male 08/18/2021 2:55 PM COMMUNITY SERVICE SPECIALIST documented as of this encounter Plan of Treatment Upcoming Encounters Date Type Specialty Care Team Description 06/22/2022 Lab Laboratory Medicine Maria Del Rosario Gomez AP RN, C.N.P., M.S. [address] [place] [phone] (Wo rk) 06/22/2022 [facility].N .[facility]., M[facility]S. [address] [place] [phone] (Wo rk) 06/29/2022 Lab Laboratory [facility] RN, C.N.P., M.S. [address] [place] [address] [phone] (Wo rk) 06/29/2022 [facility] C.N .P., M.S. [address] [place] [address] [phone] (Wo rk) Scheduled Referrals Name Type Priority Associated Order Schedule Diagnoses Oncology nurse visit Outpatient Referral Routine Malignant Siva plasm Expected: (clinic) Of Pancreas (HCC) 08/27/2021 , Expires: 11/25/2022 Oncology - Chemo Outpatient Referral Routine Malignant Neoplas m Expected: education visit Of Pancreas (HCC) 021, (clinic) Expires: 11/25/2022 Oncology nurse visit Outpatient Referral Routine Secondary Mal ignant Expected: (clinic) Neoplasm Liver 08/27/2021, (HCC) Expires: Malignant Neoplasm 3 Of Pancreas (HCC) Oncology office Outpatient Referral Routine Secondary Malignan t Expected: visit (clinic) Neoplasm Liver 08/27/2021, General; GIH (HCC) Expires: Pancreatic Malignant Neoplasm 2 Of Pancreas (HCC) documented as of this encounter Results ALT (Alanine Aminotransferase) (08/31/2021 1:14 PM COMMUNITY SERVICE SPECIALIST) [facility] gist Method Time Signature Alanine 28 7 - 55 08/31/2021 DTL Aminotransferase U/L 4:32 PM COMMUNITY SERVICE SPECIALIST (ALT), S Specimen Anatomical Collection Method Collection Time Receive d Time (Source) Location / / Volume Laterality Blood (Blood, 08/31/2021 1:14 PM 08/31/20 2:35 Venous) COMMUNITY SERVICE SPECIALIST PM COMMUNITY SERVICE SPECIALIST Deborah VillaBRiazS. LAB BLOOD ADD-ON Performing Organization Address City/[facility] Phon e Number [facility] - [address] AST (Aspartate Aminotransferase) (08/31/2021 1:14 PM COMMUNITY SERVICE SPECIALIST) Patholo gist Method Time Signature Aspartate 20 8 - 48 08/31/2021 DTL Aminotransferase U/L 3:57 PM COMMUNITY SERVICE SPECIALIST (AST), S Specimen Anatomical Collection Method Collection Time Receive d Time (Source) Location / / Volume Laterality Blood (Blood, 08/31/2021 1:14 PM 08/31/20 2:33 Venous) COMMUNITY SERVICE SPECIALIST PM COMMUNITY SERVICE SPECIALIST Deborah VillaBRiazSRiaz LAB BLOOD ADD-ON Performing Organization Address City/[facility]/ZIP Code Phon e Number [facility] - [address] Bilirubin, Total (08/31/2021 1:14 PM COMMUNITY SERVICE SPECIALIST) P athologist Signature Bilirubin, 0.4 <=1.2 mg/dL 08/31/2021 DTL Total, S 3:57 PM COMMUNITY SERVICE SPECIALIST Specimen Anatomical Collection Method Collection Time Receive d Time (Source) Location / / Volume Laterality Blood (Blood, 08/31/2021 1:14 PM 08/31/20 2:33 Venous) COMMUNITY SERVICE SPECIALIST PM COMMUNITY SERVICE SPECIALIST Deborah RussoS. LAB BLOOD ADD-ON Performing Organization Address City/[facility] Phon e Number [facility] - [address] [place], [place] [address] (ABNORMAL) Alkaline Phosphatase (08/31/2021 1:14 PM COMMUNITY SERVICE SPECIALIST) P athologist Signature Alkaline 139 (H) 40 - 129 08/31/2021 DTL Phosphatase, S U/L 3:57 PM COMMUNITY SERVICE SPECIALIST Specimen Anatomical Collection Method Collection Time Receive d Time (Source) Location / / Volume Laterality Blood (Blood, 08/31/2021 1:14 PM 08/31/20 2:33 Venous) COMMUNITY SERVICE SPECIALIST PM COMMUNITY SERVICE SPECIALIST Deborah VillaB.S. LAB BLOOD ADD-ON Performing Organization Address City/[facility]/ZIP Code Phon e Number [facility] - 200 [place], [place] [address] [place] [address] [facility] [address] [facility] Magnesium (08/31/2021 1:14 PM COMMUNITY SERVICE SPECIALIST) P athologist Signature Magnesium, S 2.1 1.7 - 2.3 08/31/2021 DTL mg/dL 3:57 PM COMMUNITY SERVICE SPECIALIST Specimen Anatomical Collection Method Collection Time Receive d Time (Source) Location / / Volume Laterality Blood (Blood, 08/31/2021 1:14 PM 08/31/20 2:33 Venous) COMMUNITY SERVICE SPECIALIST PM COMMUNITY SERVICE SPECIALIST Deborah VillaB.SRiaz LAB BLOOD ADD-ON Performing Organization Address City/[facility]/ZIP Code Phon e Number [facility] - 200 [place], [place] [address] [place], [place] [address] [address] Phosphorus Inorganic (08/31/2021 1:14 PM COMMUNITY SERVICE SPECIALIST) P athologist Signature Phosphorus 3.9 2.5 - 4.5 08/31/2021 DTL (Inorganic), S mg/dL 3:57 PM COMMUNITY SERVICE SPECIALIST Specimen Anatomical Collection Method Collection Time Receive d Time (Source) Location / / Volume Laterality Blood (Blood, 08/31/2021 1:14 PM 08/31/20 2:33 Venous) COMMUNITY SERVICE SPECIALIST PM COMMUNITY SERVICE SPECIALIST Deborah VillaB.S. LAB BLOOD ADD-ON Performing Organization Address City/State/ZIP Code Phon e Number [facility] - 200 [place], [place] [address] [place] [address] Albumin (08/31/2021 1:14 PM COMMUNITY SERVICE SPECIALIST) P athologist Signature Albumin, S 4.0 3.5 - 5.0 08/31/2021 DTL g/dL 3:57 PM COMMUNITY SERVICE SPECIALIST Specimen Anatomical Collection Method Collection Time Receive d Time (Source) Location / / Volume Laterality Blood (Blood, 08/31/2021 1:14 PM 08/31/20 2:33 Venous) COMMUNITY SERVICE SPECIALIST PM COMMUNITY SERVICE SPECIALIST Deborah Valera LAB BLOOD ADD-ON Performing Organization Address City/State/ZIP Code Phon e Number [facility] - 200 [place], [place] [address] [facility] [place] [address] Laboratories-[facility] 200 [facility] Basic Metabolic Panel (08/31/2021 1:14 PM COMMUNITY SERVICE SPECIALIST) P athologist Signature Potassium, S 4.0 3.6 - 5.2 08/31/2021 DTL mmol/L 3:57 PM COMMUNITY SERVICE SPECIALIST Sodium, S 140 135 - 145 08/31/2021 DTL mmol/L 3:57 PM COMMUNITY SERVICE SPECIALIST Chloride, S 104 98 - 107 08/31/2021 DTL mmol/L 3:57 PM COMMUNITY SERVICE SPECIALIST Bicarbonate, S 24 22 - 29 08/31/2021 DTL mmol/L 3:57 PM COMMUNITY SERVICE SPECIALIST Anion Gap 12 7 - 15 08/31/2021 DTL 3:57 PM COMMUNITY SERVICE SPECIALIST BUN (Blood Urea 16 8 - 24 08/31/2021 DTL Nitrogen), S mg/dL 3:57 PM COMMUNITY SERVICE SPECIALIST Creatinine 0.91 0.74 - 08/31/2021 DTL 1.35 mg/dL 3:57 PM COMMUNITY SERVICE SPECIALIST eGFR-Non >90 >=60 08/31/2021 DTL Black/ mL/min/BSA 3:57 PM COMMUNITY SERVICE SPECIALIST Faroese Comment: ----ADDITIONAL INFORMATION---- Estimated GFR calculated using the 2009 CKD_EPI creatinine equation. eGFR-Black/ >90 >=60 mL/min/BSA 2020 3:57 PM COMMUNITY SERVICE SPECIALIST DTL Comment: ----ADDITIONAL INFORMATION---- Estimated GFR calculated using the 2009 CKD_EPI creatinine equation. Calcium, Total, S 9.1 8.6 - 10.0 mg/dL 08/31/2021 3:57 PM COMMUNITY SERVICE SPECIALIST DTL Glucose, S 98 70 - 140 mg/dL 08/31/2021 3:57 PM COMMUNITY SERVICE SPECIALIST D TL Specimen Anatomical Collection Method Collection Time Receive d Time (Source) Location / / Volume Laterality Blood (Blood, 08/31/2021 1:14 PM 08/31/20 2:33 Venous) COMMUNITY SERVICE SPECIALIST PM COMMUNITY SERVICE SPECIALIST Deborah Valera LAB BLOOD ADD-ON Performing Organization Address City/State/ZIP Code Phon e Number [facility] - [address] [place], [place] [address] [facility] [place] [address] Laboratories-[facility] [address] (ABNORMAL) CBC with Differential, Blood (08/31/2021 1:14 PM COMMUNITY SERVICE SPECIALIST) [facility] gist Method Time Signature Hemoglobin 13.0 (L) 13.2 - 08/31/2021 DTL 16.6 g/dL 2:22 PM COMMUNITY SERVICE SPECIALIST Hematocrit 40.3 38.3 - 08/31/2021 DTL 48.6 % 2:22 PM COMMUNITY SERVICE SPECIALIST Erythrocytes 4.79 4.35 - 08/31/2021 DTL 5.65 2:22 PM COMMUNITY SERVICE SPECIALIST x10(12)/L MCV 84.1 78.2 - 08/31/2021 DTL 97.9 fL 2:22 PM COMMUNITY SERVICE SPECIALIST RBC Distrib Width 13.5 11.8 - 08/31/2021 DTL 14.5 % 2:22 PM COMMUNITY SERVICE SPECIALIST Platelet Count 186 135 - 317 08/31/2021 DTL x10(9)/L 2:22 PM COMMUNITY SERVICE SPECIALIST Leukocytes 6.3 3.4 - 9.6 08/31/2021 DTL x10(9)/L 2:22 PM COMMUNITY SERVICE SPECIALIST Neutrophils 4.71 1.56 - 08/31/2021 DTL 6.45 2:22 PM COMMUNITY SERVICE SPECIALIST x10(9)/L Lymphocytes 0.75 (L) 0.95 - 08/31/2021 DTL 3.07 2:22 PM COMMUNITY SERVICE SPECIALIST x10(9)/L Monocytes 0.69 0.26 - 08/31/2021 DTL 0.81 2:22 PM COMMUNITY SERVICE SPECIALIST x10(9)/L Eosinophils 0.14 0.03 - 08/31/2021 DTL 0.48 2:22 PM COMMUNITY SERVICE SPECIALIST x10(9)/L Basophils <0.03 0.01 - 08/31/2021 DTL 0.08 2:22 PM COMMUNITY SERVICE SPECIALIST x10(9)/L Specimen Anatomical Collection Method Collection Time Receive d Time (Source) Location / / Volume Laterality Blood (Blood, 08/31/2021 1:14 PM 08/31/20 21 2:12 Venous) COMMUNITY SERVICE SPECIALIST PM COMMUNITY SERVICE SPECIALIST Deborah RussoSRiaz LAB BLOOD ADD-ON Performing Organization Address City/State/ZIP Code Phon e Number [facility] - [address] [place], [place] [address] [facility] [place] [address] [facility] [address] documented in this encounter Visit Diagnoses Diagnosis Malignant Neoplasm Of Pancreas (HCC) - P rimary Secondary Malignant Neoplasm Liver (HCC) documented in this encounter Care Teams Photographic Colorist Relationship Specialty Start Date End Date Elsewhere, Pcp PCP - General Family Medicine 08/12/20 documented as of this encounter
--- OUTSIDE RECORDS SUMMARY | 2022-06-18 16:08 | XMS_ITS | Encounter Summary ---
:1965 Author Organization [facility] Address [address] [place] [address] Care Team Providers Name Role Phone Elsewhere, Pcp Primary Care Provider Unavailable Reason for Referral Outpatient (Routine) Specialty Diagnoses / Procedures Referred By Contact Refer red To Contact Oncology RST [address] [phone] Referral ID Status Reason Start Date Expiration Date Visits Requ ested Visits Authorized LSMITH HELPER Outpatient (Routine) Specialty Diagnoses / Procedures Referred By Contact Refer red To Contact Oncology RST [address] [phone] Referral ID Status Reason Start Date Expiration Date Visits Requ ested Visits Authorized LSMITH HELPER Reason for Visit Outpatient (Routine) - Closed Specialty Diagnoses / Procedures Referred By Contact Refer red To Contact Oncology Diagnoses Malignant Neoplasm Of Pancreas (HCC) Vladislav Zarco M.D. [address] [phone] Referral ID Status Reason Start Date Expiration Date Visits Requ ested Visits Authorized [id number] Closed 08/27/2021 08/27/2022 1 1 Encounter Details Date Type Department Care Team Description 08/27/2021 Nurse Only Department of Oncology in Vladislav Potter M.D. [address] [place] [address] [place] [phone] [place], [place] Emma Mora R.N. 200 [place] [phone] Social History Tobacco Use Types Packs/Day [...] How often do you attend [employer] or m[employer] services? Never 01/15/2021 Do you belong to [...] at Date Recorded Male 08/18/2021 2:55 PM METALSMITH HELPER documented as of this encounter Plan of Treatment Upcoming Encounters Date Type Specialty Care Team Description 06/22/2022 Lab Laboratory Medicine Maria Del Rosario Gomez AP RN, C.N.P., M.S. [address] [place] [phone] ([place] godoy) 06/22/2022 Infusion Oncology Maria Del Rosario Gomez APRN, C.N .P., M.S. [address] [place] [phone] (Mj godoy) 06/29/2022 Lab Laboratory Medicine Maria Del Rosario Gomez AP RN, C.N.P., M.S. [address] [place] [phone] ([place]j [place]) 06/29/2022 Infusion Oncology Patricia, Maria Del Rosario Laura, GUERO CRiazN .P., M.S. 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 19-9, S 6:40 PM METALSMITH HELPER Comment: ----ADDITIONAL INFORMATION---- The testing method is an immunoenzymatic assay manufactured by [employer] and performed on the Vrvana DxI 800. ? Values obtained with different assay met hods or kits may be different and cannot be used inte rchangeably. ? Test results cannot be interpreted as ab solute evidence for the presence or absence of malignant disease. Specimen Anatomical Collection Method Collection Time Receive d Time (Source) Location / / Volume Laterality Blood (Blood, 11/03/2021 3:23 PM 11/03/19 5:51 Venous) METALSMITH HELPER PM METALSMITH HELPER Vladislav Zarco M.D. LAB BLOOD ADD-ON Performing Organization Address City/State/ZIP Code Phon e Number [facility] [address] [place], [place] [address] [facility] [place] [address] Laboratory Medicine and Pathology [address] [place] (ABNORMAL) ALT (Alanine Aminotransferase) (11/03/2021 3:23 PM METALSMITH HELPER) [facility] gist Method Time Signature Alanine 118 (H) 7 - 55 11/03/2021 DTL Aminotransferase U/L 4:08 PM METALSMITH HELPER (ALT), S Specimen Anatomical Collection Method Collection Time Receive d Time (Source) Location / / Volume Laterality Blood (Blood, 11/03/2021 3:23 PM 11/03/19 3:50 Venous) METALSMITH HELPER PM METALSMITH HELPER Vladislav Zarco M.D. LAB BLOOD ADD-ON Performing Organization Address City/State/ZIP Code Phon e Number [facility] - [address] [place], [place] [address] [facility] [address] (ABNORMAL) AST (Aspartate Aminotransferase) (11/03/2021 3:23 PM METALSMITH HELPER) Patholo gist Method Time Signature Aspartate 150 (H) 8 - 48 11/03/2021 DTL Aminotransferase U/L 4:09 PM METALSMITH HELPER (AST), S Specimen Anatomical Collection Method Collection Time Receive d Time (Source) Location / / Volume Laterality Blood (Blood, 11/03/2021 3:23 PM 11/03/19 3:50 Venous) METALSMITH HELPER PM METALSMITH HELPER Vladislav Zarco M.D. LAB BLOOD ADD-ON Performing Organization Address City/State/ZIP Code Phon e Number [facility] - [address] [place], [place] [address] [place] [address] Bilirubin, Total (11/03/2021 3:23 PM METALSMITH HELPER) P athologist Signature Bilirubin, 1.0 <=1.2 mg/dL 11/03/2021 DTL Total, S 4:09 PM METALSMITH HELPER Specimen Anatomical Collection Method Collection Time Receive d Time (Source) Location / / Volume Laterality Blood (Blood, 11/03/2021 3:23 PM 11/03/19 3:50 Venous) METALSMITH HELPER PM METALSMITH HELPER Vladislav Zarco M.D. LAB BLOOD ADD-ON Performing Organization Address City/State/ZIP Code Phon e Number [facility] - [address] [place], [place] [address] [facility] [place] [address] [facility] [address] (ABNORMAL) Alkaline Phosphatase (11/03/2021 3:23 PM METALSMITH HELPER) athologist Signature Alkaline 392 (H) 40 - 129 11/03/2021 DTL Phosphatase, S U/L 4:14 PM METALSMITH HELPER Specimen Anatomical Collection Method Collection Time Receive d Time (Source) Location / / Volume Laterality Blood (Blood, 11/03/2021 3:23 PM 11/03/19 3:50 Venous) METALSMITH HELPER PM METALSMITH HELPER Vladislav Zarco M.D. LAB BLOOD ADD-ON Performing Organization Address City/State/ZIP Code Phon e Number [facility] - [address] [place], [place] [address] [place] [address] [facility] [address] [facility] Magnesium (11/03/2021 3:23 PM METALSMITH HELPER) athologist Signature Magnesium, S 2.0 1.7 - 2.3 11/03/2021 DTL mg/dL 4:09 PM METALSMITH HELPER Specimen Anatomical Collection Method Collection Time Receive d Time (Source) Location / / Volume Laterality Blood (Blood, 11/03/2021 3:23 PM 11/03/19 3:50 Venous) METALSMITH HELPER PM METALSMITH HELPER Vladislav Zarco M.D. LAB BLOOD ADD-ON Performing Organization Address City/[facility]/ZIP Code Phon e Number [facility] - [address] [place], [place] [address] [place] [address] [place] [address] [address] [facility] Phosphorus Inorganic (11/03/2021 3:23 PM METALSMITH HELPER) athologist Signature Phosphorus 3.3 2.5 - 4.5 11/03/2021 DTL (Inorganic), S mg/dL 4:09 PM METALSMITH HELPER Specimen Anatomical Collection Method Collection Time Receive d Time (Source) Location / / Volume Laterality Blood (Blood, 11/03/2021 3:23 PM 11/03/19 3:50 Venous) METALSMITH HELPER PM METALSMITH HELPER Vladislav Zarco M.D. LAB BLOOD ADD-ON Performing Organization Address City/State/ZIP Code Phon e Number [facility] - [address] [place], [place] [address] [place] [address] [facility] [address] [facility] Albumin (11/03/2021 3:23 PM METALSMITH HELPER) athologist Signature Albumin, S 3.6 3.5 - 5.0 11/03/2021 DTL g/dL 4:09 PM METALSMITH HELPER Specimen Anatomical Collection Method Collection Time Receive d Time (Source) Location / / Volume Laterality Blood (Blood, 11/03/2021 3:23 PM 11/03/19 3:50 Venous) METALSMITH HELPER PM METALSMITH HELPER Vladislav Zarco M.D. LAB BLOOD ADD-ON Performing Organization Address City/State/ZIP Code Phon e Number [facility] - [address] [place] [address] [facility] [place] [address] [facility] [address] [facility] Basic Metabolic Panel (11/03/2021 3:23 PM METALSMITH HELPER) athologist Signature Potassium, S 3.8 3.6 - 5.2 11/03/2021 DTL mmol/L 4:09 PM METALSMITH HELPER Sodium, S 143 135 - 145 11/03/2021 DTL mmol/L 4:09 PM METALSMITH HELPER Chloride, S 106 98 - 107 11/03/2021 DTL mmol/L 4:09 PM METALSMITH HELPER Bicarbonate, S 29 22 - 29 11/03/2021 DTL mmol/L 4:09 PM METALSMITH HELPER Anion Gap 8 7 - 15 11/03/2021 DTL 4:09 PM METALSMITH HELPER BUN (Blood Urea 9 8 - 24 11/03/2021 DTL Nitrogen), S mg/dL 4:09 PM METALSMITH HELPER Creatinine 0.85 0.74 - 11/03/2021 DTL 1.35 mg/dL 4:09 PM METALSMITH HELPER eGFR-Non >90 >=60 11/03/2021 DTL Black/ mL/min/BSA 4:09 PM METALSMITH HELPER Nigerian Comment: ----ADDITIONAL INFORMATION---- Estimated GFR calculated using the 2009 CKD_EPI creatinine equation. eGFR-Black/ >90 >=60 mL/min/BSA 2021 4:09 PM METALSMITH HELPER DTL Comment: ----ADDITIONAL INFORMATION---- Estimated GFR calculated using the 2009 CKD_EPI creatinine equation. Calcium, Total, S 9.2 8.6 - 10.0 mg/dL 11/03/2021 4:09 PM METALSMITH HELPER DTL Glucose, S 95 70 - 140 mg/dL 11/03/2021 4:09 PM METALSMITH HELPER D TL Specimen Anatomical Collection Method Collection Time Receive d Time (Source) Location / / Volume Laterality Blood (Blood, 11/03/2021 3:23 PM 11/03/19 3:50 Venous) METALSMITH HELPER PM METALSMITH HELPER Vladislav Zarco M.D. LAB BLOOD ADD-ON Performing Organization Address City/State/ZIP Code Phon e Number [facility] - [address] [place], [place] [address] [facility] [place] [place] [address] [facility] 200 [address] [facility] (ABNORMAL) CBC with Differential, Blood (11/03/2021 3:23 PM METALSMITH HELPER) [facility] gist Method Time Signature Hemoglobin 11.7 (L) 13.2 - 11/03/2021 DTL 16.6 g/dL 3:49 PM METALSMITH HELPER Hematocrit 34.8 (L) 38.3 - 11/03/2021 DTL 48.6 % 3:49 PM METALSMITH HELPER Erythrocytes 4.14 (L) 4.35 - 11/03/2021 DTL 5.65 3:49 PM METALSMITH HELPER x10(12)/L MCV 84.1 78.2 - 11/03/2021 DTL 97.9 fL 3:49 PM METALSMITH HELPER RBC Distrib Width 15.9 (H) 11.8 - 11/03/2021 DTL 14.5 % 3:49 PM METALSMITH HELPER Platelet Count 286 135 - 317 11/03/2021 DTL x10(9)/L 3:49 PM METALSMITH HELPER Leukocytes 4.3 3.4 - 9.6 11/03/2021 DTL x10(9)/L 3:49 PM METALSMITH HELPER Neutrophils 2.99 1.56 - 11/03/2021 DTL 6.45 4:43 PM METALSMITH HELPER x10(9)/L Comment: Rechecked Lymphocytes 0.65 (L) 0.95 - 3.07 x10(9)/L 11/03/2021 4:43 P M METALSMITH HELPER DTL Monocytes 0.55 0.26 - 0.81 x10(9)/L 11/03/2021 4:43 PM METALSMITH HELPER DTL Eosinophils 0.11 0.03 - 0.48 x10(9)/L 11/03/2021 4:43 P M METALSMITH HELPER DTL Basophils <0.03 0.01 - 0.08 x10(9)/L 11/03/2021 4:43 PM METALSMITH HELPER DTL Specimen Anatomical Collection Method Collection Time Receive d Time (Source) Location / / Volume Laterality Blood (Blood, 11/03/2021 3:23 PM 11/03/19 3:38 Venous) METALSMITH HELPER PM METALSMITH HELPER Vladislav Zarco M.D. LAB BLOOD ADD-ON Performing Organization Address City/[facility]/ZIP [facility] Phon e Number [facility] - 200 [place], [place] [address] [place] [address] [place] [address] [address] [facility] ALT (Alanine Aminotransferase) (10/15/2021 8:00 AM METALSMITH HELPER) [facility] gist Method Time Signature Alanine 25 7 - 55 10/15/2021 DTL Aminotransferase U/L 9:07 AM METALSMITH HELPER (ALT), S Specimen Anatomical Collection Method Collection Time Receive d Time (Source) Location / / Volume Laterality Blood (Blood, 10/15/2021 8:00 AM 10/15/19 8:45 Venous) METALSMITH HELPER AM METALSMITH HELPER Vladislav Zarco M.D. LAB BLOOD ADD-ON Performing Organization Address City/State/ZIP Code Phon e Number [facility] - 200 [place], [place] [address] [place] [address] [place] [address] [place] [address] AST (Aspartate Aminotransferase) (10/15/2021 8:00 AM METALSMITH HELPER) [facility] gist Method Time Signature Aspartate 21 8 - 48 10/15/2021 METH Aminotransferase U/L 8:33 AM METALSMITH HELPER (AST), P Specimen Anatomical Collection Method Collection Time Receive d Time (Source) Location / / Volume Laterality Blood (Blood, 10/15/2021 8:00 AM 10/15/19 22 8:06 Venous) METALSMITH HELPER AM METALSMITH HELPER Vladislav Zarco M.D. LAB BLOOD ADD-ON Performing Organization Address City/[facility]/ZIP Code Phon e Number [facility] - [address] [place], [place] [address] [place] [address] [place] [address] [facility] [address] [facility] Bilirubin, Total (10/15/2021 8:00 AM METALSMITH HELPER) athologist Signature Bilirubin, 0.3 <=1.2 mg/dL 10/15/2021 METH Total, P 8:33 AM METALSMITH HELPER Specimen Anatomical Collection Method Collection Time Receive d Time (Source) Location / / Volume Laterality Blood (Blood, 10/15/2021 8:00 AM 10/15/19 8:06 Venous) METALSMITH HELPER AM METALSMITH HELPER Vladislav Zarco M.D. LAB BLOOD ADD-ON Performing Organization Address City/State/ZIP Code Phon e Number [facility] - [id number] [place] [address] 200 [facility] (ABNORMAL) Alkaline Phosphatase (10/15/2021 8:00 AM METALSMITH HELPER) athologist Signature Alkaline 135 (H) 40 - 129 10/15/2021 DTL Phosphatase, S U/L 9:07 AM METALSMITH HELPER Specimen Anatomical Collection Method Collection Time Receive d Time (Source) Location / / Volume Laterality Blood (Blood, 10/15/2021 8:00 AM 10/15/19 8:45 Venous) METALSMITH HELPER AM METALSMITH HELPER Vladislav Zarco M.D. LAB BLOOD ADD-ON Performing Organization Address City/State/ZIP Code Phon e Number [facility] - 200 [place] [address] [facility] DTL [address] Magnesium (10/15/2021 8:00 AM METALSMITH HELPER) athologist Signature Magnesium, S 2.1 1.7 - 2.3 10/15/2021 DTL mg/dL 9:07 AM METALSMITH HELPER Specimen Anatomical Collection Method Collection Time Receive d Time (Source) Location / / Volume Laterality Blood (Blood, 10/15/2021 8:00 AM 10/15/19 8:45 Venous) METALSMITH HELPER AM METALSMITH HELPER Vladislav Zarco M.D. LAB BLOOD ADD-ON Performing Organization Address City/State/ZIP Code Phon e Number [facility] - 200 [place], [place] [address] [place] [phone] [place] [address] Phosphorus Inorganic (10/15/2021 8:00 AM METALSMITH HELPER) athologist Signature Phosphorus 4.1 2.5 - 4.5 10/15/2021 DTL (Inorganic), S mg/dL 9:07 AM METALSMITH HELPER Specimen Anatomical Collection Method Collection Time Receive d Time (Source) Location / / Volume Laterality Blood (Blood, 10/15/2021 8:00 AM 10/15/19 8:45 Venous) METALSMITH HELPER AM METALSMITH HELPER Vladislav Zarco M.D. LAB BLOOD ADD-ON Performing Organization Address City/[facility] Phon e Number [facility] - [phone] [place] [address] Albumin (10/15/2021 8:00 AM METALSMITH HELPER) athologist [facility] Albumin, S 4.3 3.5 - 5.0 10/15/2021 DTL g/dL 9:07 AM METALSMITH HELPER Specimen Anatomical Collection Method Collection Time Receive d Time (Source) Location / / Volume Laterality Blood (Blood, 10/15/2021 8:00 AM 10/15/19 8:45 Venous) METALSMITH HELPER AM METALSMITH HELPER Vladislav Zarco M.D. LAB BLOOD ADD-ON Performing Organization Address City/State/ZIP Code Phon e Number [facility] - [address] Basic Metabolic Panel (10/15/2021 8:00 AM METALSMITH HELPER) athologist Signature Potassium, P 3.9 3.6 - 5.2 10/15/2021 METH mmol/L 8:33 AM METALSMITH HELPER Sodium, P 142 135 - 145 10/15/2021 METH mmol/L 8:33 AM METALSMITH HELPER Chloride, P 106 98 - 107 10/15/2021 METH mmol/L 8:33 AM METALSMITH HELPER Bicarbonate, P 24 22 - 29 10/15/2021 METH mmol/L 8:33 AM METALSMITH HELPER Anion Gap, P 12 7 - 15 10/15/2021 METH 8:33 AM METALSMITH HELPER BUN (Blood Urea 12 8 - 24 10/15/2021 METH Nitrogen), P mg/dL 8:33 AM METALSMITH HELPER Creatinine 0.89 0.74 - 10/15/2021 METH 1.35 mg/dL 8:33 AM METALSMITH HELPER eGFR-Black/Afric >90 >=60 10/15/2021 METH an Nigerian mL/min/BSA 8:33 AM METALSMITH HELPER Comment: ----ADDITIONAL INFORMATION---- Estimated GFR calculated using the 2009 CKD_EPI creatinine equation. eGFR Non-Black/ >90 >=60 mL/min/BSA 10/15/2021 8:33 AM METALSMITH HELPER METH Comment: ----ADDITIONAL INFORMATION---- Estimated GFR calculated using the 2009 CKD_EPI creatinine equation. Calcium, Total, P 9.1 8.6 - 10.0 mg/dL 10/15/2021 8:33 AM METALSMITH HELPER METH Glucose, P 96 70 - 140 mg/dL 10/15/2021 8:33 AM METALSMITH HELPER [facility] Specimen Anatomical Collection Method Collection Time Receive d Time (Source) Location / / Volume Laterality Blood (Blood, 10/15/2021 8:00 AM 10/15/19 8:06 Venous) METALSMITH HELPER AM METALSMITH HELPER Vladislav Zarco M.D. LAB BLOOD ADD-ON Performing Organization Address City/State/ZIP Code Phon e Number [facility] - 200 [place], [place] [address] [facility] [place] [address] [facility] 200 [facility] (ABNORMAL) CBC with Differential, Blood (10/15/2021 8:00 AM METALSMITH HELPER) [facility] Method Time Signature Hemoglobin 11.8 (L) 13.2 - 10/15/2021 DTL 16.6 g/dL 8:33 AM METALSMITH HELPER Hematocrit 37.2 (L) 38.3 - 10/15/2021 DTL 48.6 % 8:33 AM METALSMITH HELPER Erythrocytes 4.37 4.35 - 10/15/2021 DTL 5.65 8:33 AM METALSMITH HELPER x10(12)/L MCV 85.1 78.2 - 10/15/2021 DTL 97.9 fL 8:33 AM METALSMITH HELPER RBC Distrib Width 15.7 (H) 11.8 - 10/15/2021 DTL 14.5 % 8:33 AM METALSMITH HELPER Platelet Count 147 135 - 317 10/15/2021 DTL x10(9)/L 8:33 AM METALSMITH HELPER Leukocytes 3.9 3.4 - 9.6 10/15/2021 DTL x10(9)/L 8:33 AM METALSMITH HELPER Neutrophils 2.76 1.56 - 10/15/2021 DTL 6.45 8:33 AM METALSMITH HELPER x10(9)/L Lymphocytes 0.51 (L) 0.95 - 10/15/2021 DTL 3.07 8:33 AM METALSMITH HELPER x10(9)/L Monocytes 0.46 0.26 - 10/15/2021 DTL 0.81 8:33 AM METALSMITH HELPER x10(9)/L Eosinophils 0.12 0.03 - 10/15/2021 DTL 0.48 8:33 AM METALSMITH HELPER x10(9)/L Basophils <0.03 0.01 - 10/15/2021 DTL 0.08 8:33 AM METALSMITH HELPER x10(9)/L Specimen Anatomical Collection Method Collection Time Receive d Time (Source) Location / / Volume Laterality Blood (Blood, 10/15/2021 8:00 AM 10/15/19 22 8:25 Venous) METALSMITH HELPER AM METALSMITH HELPER Vladislav Zarco M.D. LAB BLOOD ADD-ON Performing Organization Address City/[facility]/ZIP [facility] Phon e Number [facility] - 200 [place], [place] [address] [facility] [place] [address] AST (Aspartate Aminotransferase) (10/01/2021 11:30 AM METALSMITH HELPER) [facility] Method Time Signature Aspartate 23 8 - 48 10/01/2021 METH Aminotransferase U/L 12:05 PM METALSMITH HELPER (AST), P Specimen Anatomical Collection Method Collection Time Receive d Time (Source) Location / / Volume Laterality Blood (Blood, 10/01/2021 11:30 10/01/2021 Venous) AM METALSMITH HELPER 11:41 AM METALSMITH HELPER Vladislav Zarco M.D. LAB BLOOD ADD-ON Performing Organization Address City/[facility]/ZIP Code Phon e Number [facility] - 200 [place], [place] [address] [place] [address] Laboratories-[address] Bilirubin, Total (10/01/2021 11:30 AM METALSMITH HELPER) athologist Signature Bilirubin, 0.4 <=1.2 mg/dL 10/01/2021 METH Total, P 12:05 PM METALSMITH HELPER Specimen Anatomical Collection Method Collection Time Receive d Time (Source) Location / / Volume Laterality Blood (Blood, 10/01/2021 11:30 10/01/2021 Venous) AM METALSMITH HELPER 11:41 AM METALSMITH HELPER Vladislav Zarco M.D. LAB BLOOD ADD-ON Performing Organization Address City/State/ZIP Code Phon e Number [facility] - 200 [place], [place] [address] [place] [address] [facility]-[address] Basic Metabolic Panel (10/01/2021 11:30 AM METALSMITH HELPER) athologist Signature Potassium, P 4.1 3.6 - 5.2 10/01/2021 METH mmol/L 12:05 PM METALSMITH HELPER Sodium, P 140 135 - 145 10/01/2021 METH mmol/L 12:05 PM METALSMITH HELPER Chloride, P 104 98 - 107 10/01/2021 METH mmol/L 12:05 PM METALSMITH HELPER Bicarbonate, P 27 22 - 29 10/01/2021 METH mmol/L 12:05 PM METALSMITH HELPER Anion Gap, P 9 7 - 15 10/01/2021 METH 12:05 PM METALSMITH HELPER BUN (Blood Urea 17 8 - 24 10/01/2021 METH Nitrogen), P mg/dL 12:05 PM METALSMITH HELPER Creatinine 0.81 0.74 - 10/01/2021 METH 1.35 mg/dL 12:05 PM METALSMITH HELPER eGFR-Black/Afric >90 >=60 10/01/2021 METH an Nigerian mL/min/BSA 12:05 PM METALSMITH HELPER Comment: ----ADDITIONAL INFORMATION---- Estimated GFR calculated using the 2009 CKD_EPI creatinine equation. eGFR Non-Black/ >90 >=60 mL/min/BSA 10/01/2021 12:05 PM METALSMITH HELPER METH Comment: ----ADDITIONAL INFORMATION---- Estimated GFR calculated using the 2009 CKD_EPI creatinine equation. Calcium, Total, P 9.4 8.6 - 10.0 mg/dL 10/01/2021 12:0 5 PM METALSMITH HELPER METH Glucose, P 91 70 - 140 mg/dL 10/01/2021 12:05 PM METALSMITH HELPER METH Specimen Anatomical Collection Method Collection Time Receive d Time (Source) Location / / Volume Laterality Blood (Blood, 10/01/2021 11:30 10/01/2021 Venous) AM METALSMITH HELPER 11:41 AM METALSMITH HELPER Vladislav Zarco M.D. LAB BLOOD ADD-ON Performing Organization Address City/State/ZIP Code Phon e Number [facility] - [address] [place], [place] [address] [facility] [place] [address] [facility] [address] (ABNORMAL) CBC with Differential, Blood (10/01/2021 11:30 AM METALSMITH HELPER) [facility] gist Method Time Signature Hemoglobin 12.0 (L) 13.2 - 10/01/2021 DTL 16.6 g/dL 11:53 AM METALSMITH HELPER Hematocrit 36.6 (L) 38.3 - 10/01/2021 DTL 48.6 % 11:53 AM METALSMITH HELPER Erythrocytes 4.38 4.35 - 10/01/2021 DTL 5.65 11:53 AM METALSMITH HELPER x10(12)/L MCV 83.6 78.2 - 10/01/2021 DTL 97.9 fL 11:53 AM METALSMITH HELPER RBC Distrib Width 14.6 (H) 11.8 - 10/01/2021 DTL 14.5 % 11:53 AM METALSMITH HELPER Platelet Count 145 135 - 317 10/01/2021 DTL x10(9)/L 11:53 AM METALSMITH HELPER Leukocytes 3.3 (L) 3.4 - 9.6 10/01/2021 DTL x10(9)/L 11:53 AM METALSMITH HELPER Neutrophils 2.45 1.56 - 10/01/2021 DTL 6.45 11:53 AM METALSMITH HELPER x10(9)/L Lymphocytes 0.44 (L) 0.95 - 10/01/2021 DTL 3.07 11:53 AM METALSMITH HELPER x10(9)/L Monocytes 0.32 0.26 - 10/01/2021 DTL 0.81 11:53 AM METALSMITH HELPER x10(9)/L Eosinophils 0.10 0.03 - 10/01/2021 DTL 0.48 11:53 AM METALSMITH HELPER x10(9)/L Basophils <0.03 0.01 - 10/01/2021 DTL 0.08 11:53 AM METALSMITH HELPER x10(9)/L Specimen Anatomical Collection Method Collection Time Receive d Time (Source) Location / / Volume Laterality Blood (Blood, 10/01/2021 11:30 10/01/2021 Venous) AM METALSMITH HELPER 11:47 AM METALSMITH HELPER Vladislav Zarco M.D. LAB BLOOD ADD-ON Performing Organization Address City/[facility]/ZIP Code Phon e Number [facility] - [address] ALT (Alanine Aminotransferase) (10/01/2021 11:29 AM METALSMITH HELPER) Patholo gist Method Time Signature Alanine 33 7 - 55 10/01/2021 DTL Aminotransferase U/L 12:22 PM METALSMITH HELPER (ALT), S Specimen Anatomical Collection Method Collection Time Receive d Time (Source) Location / / Volume Laterality Blood (Blood, 10/01/2021 11:29 10/01/2021 Venous) AM METALSMITH HELPER 11:51 AM METALSMITH HELPER Vladislav Zarco M.D. LAB BLOOD ADD-ON Performing Organization Address City/[facility]/ZIP Code Phon e Number [facility] - 200 [place], [place] [address] [place] [address] (ABNORMAL) Alkaline Phosphatase (10/01/2021 11:29 AM METALSMITH HELPER) P athologist Signature Alkaline 144 (H) 40 - 129 10/01/2021 DTL Phosphatase, S U/L 12:22 PM METALSMITH HELPER Specimen Anatomical Collection Method Collection Time Receive d Time (Source) Location / / Volume Laterality Blood (Blood, 10/01/2021 11:29 10/01/2021 Venous) AM METALSMITH HELPER 11:51 AM METALSMITH HELPER Vladislav Zarco M.D. LAB BLOOD ADD-ON Performing Organization Address City/[facility]/ZIP Code Phon e Number [facility] - 200 [place], [place] [address] [place] [address] Magnesium (10/01/2021 11:29 AM METALSMITH HELPER) P athologist Signature Magnesium, S 2.0 1.7 - 2.3 10/01/2021 DTL mg/dL 12:22 PM METALSMITH HELPER Specimen Anatomical Collection Method Collection Time Receive d Time (Source) Location / / Volume Laterality Blood (Blood, 10/01/2021 11:29 10/01/2021 Venous) AM METALSMITH HELPER 11:51 AM METALSMITH HELPER Vladislav Zarco M.D. LAB BLOOD ADD-ON Performing Organization Address City/State/ZIP Code Phon e Number [facility] - [address] [place], [place] [address] [place] [address] Phosphorus Inorganic (10/01/2021 11:29 AM METALSMITH HELPER) P athologist Signature Phosphorus 3.8 2.5 - 4.5 10/01/2021 DTL (Inorganic), S mg/dL 12:22 PM METALSMITH HELPER Specimen Anatomical Collection Method Collection Time Receive d Time (Source) Location / / Volume Laterality Blood (Blood, 10/01/2021 11:29 10/01/2021 Venous) AM METALSMITH HELPER 11:51 AM METALSMITH HELPER Vladislav Zarco M.D. LAB BLOOD ADD-ON Performing Organization Address City/State/ZIP Code Phon e Number [facility] - [address] [place], [place] [address] [address] [place] [address] Albumin (10/01/2021 11:29 AM METALSMITH HELPER) P athologist Signature Albumin, S 4.1 3.5 - 5.0 10/01/2021 DTL g/dL 12:22 PM METALSMITH HELPER Specimen Anatomical Collection Method Collection Time Receive d Time (Source) Location / / Volume Laterality Blood (Blood, 10/01/2021 11:29 10/01/2021 Venous) AM METALSMITH HELPER 11:51 AM METALSMITH HELPER Vladislav R Carolee M.D. LAB BLOOD ADD-ON Performing Organization Address City/State/ZIP Code Phon e Number [facility] - [address] [place], [place] [address] [facility] [place] [place] [address] [facility] [address] [facility] (ABNORMAL) CBC with Differential, Blood (09/24/2021 10:07 AM METALSMITH HELPER) [facility] Method Time Signature Hemoglobin 11.9 (L) 13.2 - 09/24/2021 DTL 16.6 g/dL 10:53 AM METALSMITH HELPER Hematocrit 35.8 (L) 38.3 - 09/24/2021 DTL 48.6 % 10:53 AM METALSMITH HELPER Erythrocytes 4.31 (L) 4.35 - 09/24/2021 DTL 5.65 10:53 AM METALSMITH HELPER x10(12)/L MCV 83.1 78.2 - 09/24/2021 DTL 97.9 fL 10:53 AM METALSMITH HELPER RBC Distrib Width 13.6 11.8 - 09/24/2021 DTL 14.5 % 10:53 AM METALSMITH HELPER Platelet Count 196 135 - 317 09/24/2021 DTL x10(9)/L 10:53 AM METALSMITH HELPER Leukocytes 2.0 (L) 3.4 - 9.6 09/24/2021 DTL x10(9)/L 10:53 AM METALSMITH HELPER Neutrophils 1.17 (L) 1.56 - 09/24/2021 DTL 6.45 10:53 AM METALSMITH HELPER x10(9)/L Lymphocytes 0.49 (L) 0.95 - 09/24/2021 DTL 3.07 10:53 AM METALSMITH HELPER x10(9)/L Monocytes 0.14 (L) 0.26 - 09/24/2021 DTL 0.81 10:53 AM METALSMITH HELPER x10(9)/L Eosinophils 0.17 0.03 - 09/24/2021 DTL 0.48 10:53 AM METALSMITH HELPER x10(9)/L Basophils <0.03 0.01 - 09/24/2021 DTL 0.08 10:53 AM METALSMITH HELPER x10(9)/L Specimen Anatomical Collection Method Collection Time Receive d Time (Source) Location / / Volume Laterality Blood (Blood, 09/24/2021 10:07 09/24/2021 Venous) AM METALSMITH HELPER 10:44 AM METALSMITH HELPER Vladislav Zarco M.D. LAB BLOOD ADD-ON Performing Organization Address City/[facility]/ZIP Code Phon e Number [facility] - [id number] [place] [address] (ABNORMAL) ALT (Alanine Aminotransferase) (09/17/2021 8:53 AM METALSMITH HELPER) [facility] Method Time Signature Alanine 175 (H) 7 - 55 09/17/2021 DTL Aminotransferase U/L 9:40 AM METALSMITH HELPER (ALT), S Specimen Anatomical Collection Method Collection Time Receive d Time (Source) Location / / Volume Laterality Blood (Blood, 09/17/2021 8:53 AM 09/17/19 22 9:23 Venous) METALSMITH HELPER AM METALSMITH HELPER Vladislav Zarco M.D. LAB BLOOD ADD-ON Performing Organization Address City/[facility]/ZIP Code Phon e Number [facility] - [phone] [place] [address] (ABNORMAL) AST (Aspartate Aminotransferase) (09/17/2021 8:53 AM METALSMITH HELPER) [facility] gist Method Time Signature Aspartate 65 (H) 8 - 48 09/17/2021 DTL Aminotransferase U/L 9:39 AM METALSMITH HELPER (AST), P Specimen Anatomical Collection Method Collection Time Receive d Time (Source) Location / / Volume Laterality Blood (Blood, 09/17/2021 8:53 AM 09/17/19 22 9:17 Venous) METALSMITH HELPER AM METALSMITH HELPER Vladislav Zarco M.D. LAB BLOOD ADD-ON Performing Organization Address City/State/ZIP Code Phon e Number [facility] - 200 [place] [address] Bilirubin, Total (09/17/2021 8:53 AM METALSMITH HELPER) P athologist Signature Bilirubin, 0.6 <=1.2 mg/dL 09/17/2021 DTL Total, P 9:39 AM METALSMITH HELPER Specimen Anatomical Collection Method Collection Time Receive d Time (Source) Location / / Volume Laterality Blood (Blood, 09/17/2021 8:53 AM 09/17/19 22 9:17 Venous) METALSMITH HELPER AM METALSMITH HELPER Vladislav Zarco M.D. LAB BLOOD ADD-ON Performing Organization Address City/[facility]/ZIP Code Phon e Number [facility] - [address] [place], [place] [address] [place] [phone] [place] [address] [address] [facility] (ABNORMAL) Alkaline Phosphatase (09/17/2021 8:53 AM METALSMITH HELPER) P athologist Signature Alkaline 223 (H) 40 - 129 09/17/2021 DTL Phosphatase, S U/L 9:40 AM METALSMITH HELPER Specimen Anatomical Collection Method Collection Time Receive d Time (Source) Location / / Volume Laterality Blood (Blood, 09/17/2021 8:53 AM 09/17/19 22 9:23 Venous) METALSMITH HELPER AM METALSMITH HELPER Vladislav Zarco M.D. LAB BLOOD ADD-ON Performing Organization Address City/State/ZIP Code Phon e Number [facility] - [address] [place], [place] [address] [place] [address] [facility] [address] [facility] Magnesium (09/17/2021 8:53 AM METALSMITH HELPER) P athologist Signature Magnesium, S 2.1 1.7 - 2.3 09/17/2021 DTL mg/dL 9:40 AM METALSMITH HELPER Specimen Anatomical Collection Method Collection Time Receive d Time (Source) Location / / Volume Laterality Blood (Blood, 09/17/2021 8:53 AM 09/17/19 22 9:23 Venous) METALSMITH HELPER AM METALSMITH HELPER Vladislav Zarco M.D. LAB BLOOD ADD-ON Performing Organization Address City/State/ZIP [facility] Phon e Number [facility] - [address] [place], [place] [address] [place] [phone] [place] [address] [address] [facility] Phosphorus Inorganic (09/17/2021 8:53 AM METALSMITH HELPER) P athologist Signature Phosphorus 3.5 2.5 - 4.5 09/17/2021 DTL (Inorganic), S mg/dL 9:40 AM METALSMITH HELPER Specimen Anatomical Collection Method Collection Time Receive d Time (Source) Location / / Volume Laterality Blood (Blood, 09/17/2021 8:53 AM 09/17/19 9:23 Venous) METALSMITH HELPER AM METALSMITH HELPER Vladislav Zarco M.D. LAB BLOOD ADD-ON Performing Organization Address City/[facility] Phon e Number [facility] - [address] [place] [address] [address] [place], [place] [phone] [place] [address] Albumin (09/17/2021 8:53 AM METALSMITH HELPER) athologist Signature Albumin, S 4.1 3.5 - 5.0 09/17/2021 DTL g/dL 9:40 AM METALSMITH HELPER Specimen Anatomical Collection Method Collection Time Receive d Time (Source) Location / / Volume Laterality Blood (Blood, 09/17/2021 8:53 AM 09/17/19 9:23 Venous) METALSMITH HELPER AM METALSMITH HELPER Vladislav Zarco M.D. LAB BLOOD ADD-ON Performing Organization Address City/State/[facility] Phon e Number [facility] - [phone] [place] [address] Basic Metabolic Panel (09/17/2021 8:53 AM METALSMITH HELPER) athologist Signature Potassium, P 4.0 3.6 - 5.2 09/17/2021 DTL mmol/L 9:39 AM METALSMITH HELPER Sodium, P 141 135 - 145 09/17/2021 DTL mmol/L 9:39 AM METALSMITH HELPER Chloride, P 105 98 - 107 09/17/2021 DTL mmol/L 9:39 AM METALSMITH HELPER Bicarbonate, P 27 22 - 29 09/17/2021 DTL mmol/L 9:39 AM METALSMITH HELPER Anion Gap, P 9 7 - 15 09/17/2021 DTL 9:39 AM METALSMITH HELPER BUN (Blood Urea 14 8 - 24 09/17/2021 DTL Nitrogen), P mg/dL 9:39 AM METALSMITH HELPER Creatinine 0.88 0.74 - 09/17/2021 DTL 1.35 mg/dL 9:39 AM METALSMITH HELPER eGFR-Black/Afric >90 >=60 09/17/2021 DTL an Nigerian mL/min/BSA 9:39 AM METALSMITH HELPER Comment: ----ADDITIONAL INFORMATION---- Estimated GFR calculated using the 2009 CKD_EPI creatinine equation. eGFR Non-Black/ >90 >=60 mL/min/BSA 9:39 AM METALSMITH HELPER DTL Comment: ----ADDITIONAL INFORMATION---- Estimated GFR calculated using the 2009 CKD_EPI creatinine equation. Calcium, Total, P 9.2 8.6 - 10.0 mg/dL 09/17/2021 9:39 AM METALSMITH HELPER DTL Glucose, P 99 70 - 140 mg/dL 09/17/2021 9:39 AM METALSMITH HELPER D TL Specimen Anatomical Collection Method Collection Time Receive d Time (Source) Location / / Volume Laterality Blood (Blood, 09/17/2021 8:53 AM 09/17/19 9:17 Venous) METALSMITH HELPER AM METALSMITH HELPER Vladislav Zarco M.D. LAB BLOOD ADD-ON Performing Organization Address City/State/ZIP Code Phon e Number [facility] - [address] [place] [address] [facility] [place] [place] [address] [facility] 200 [facility] (ABNORMAL) CBC with Differential, Blood (09/17/2021 8:53 AM METALSMITH HELPER) [facility] Method Time Signature Hemoglobin 12.4 (L) 13.2 - 09/17/2021 DTL 16.6 g/dL 9:18 AM METALSMITH HELPER Hematocrit 38.0 (L) 38.3 - 09/17/2021 DTL 48.6 % 9:18 AM METALSMITH HELPER Erythrocytes 4.49 4.35 - 09/17/2021 DTL 5.65 9:18 AM METALSMITH HELPER x10(12)/L MCV 84.6 78.2 - 09/17/2021 DTL 97.9 fL 9:18 AM METALSMITH HELPER RBC Distrib Width 14.4 11.8 - 09/17/2021 DTL 14.5 % 9:18 AM METALSMITH HELPER Platelet Count 124 (L) 135 - 317 09/17/2021 DTL x10(9)/L 9:18 AM METALSMITH HELPER Leukocytes 4.0 3.4 - 9.6 09/17/2021 DTL x10(9)/L 9:18 AM METALSMITH HELPER Neutrophils 2.47 1.56 - 09/17/2021 DTL 6.45 9:18 AM METALSMITH HELPER x10(9)/L Lymphocytes 0.65 (L) 0.95 - 09/17/2021 DTL 3.07 9:18 AM METALSMITH HELPER x10(9)/L Monocytes 0.60 0.26 - 09/17/2021 DTL 0.81 9:18 AM METALSMITH HELPER x10(9)/L Eosinophils 0.22 0.03 - 09/17/2021 DTL 0.48 9:18 AM METALSMITH HELPER x10(9)/L Basophils <0.03 0.01 - 09/17/2021 DTL 0.08 9:18 AM METALSMITH HELPER x10(9)/L Specimen Anatomical Collection Method Collection Time Receive d Time (Source) Location / / Volume Laterality Blood (Blood, 09/17/2021 8:53 AM 09/17/19 9:08 Venous) METALSMITH HELPER AM METALSMITH HELPER Vladislav Zarco M.D. LAB BLOOD ADD-ON Performing Organization Address City/State/ZIP Code Phon e Number [facility] - [address] [place], [place] [address] [facility] [place] [place] [address] [facility] 200 [facility] (ABNORMAL) CBC with Differential, Blood (09/08/2021 5:03 PM METALSMITH HELPER) [facility] gist Method Time Signature Hemoglobin 11.8 (L) 13.2 - 09/08/2021 DTL 16.6 g/dL 5:50 PM METALSMITH HELPER Hematocrit 35.9 (L) 38.3 - 09/08/2021 DTL 48.6 % 5:50 PM METALSMITH HELPER Erythrocytes 4.37 4.35 - 09/08/2021 DTL 5.65 5:50 PM METALSMITH HELPER x10(12)/L MCV 82.2 78.2 - 09/08/2021 DTL 97.9 fL 5:50 PM METALSMITH HELPER RBC Distrib Width 12.6 11.8 - 09/08/2021 DTL 14.5 % 5:50 PM METALSMITH HELPER Platelet Count 182 135 - 317 09/08/2021 DTL x10(9)/L 5:50 PM METALSMITH HELPER Leukocytes 4.3 3.4 - 9.6 09/08/2021 DTL x10(9)/L 5:50 PM METALSMITH HELPER Neutrophils 3.21 1.56 - 09/08/2021 DTL 6.45 5:50 PM METALSMITH HELPER x10(9)/L Lymphocytes 0.71 (L) 0.95 - 09/08/2021 DTL 3.07 5:50 PM METALSMITH HELPER x10(9)/L Monocytes 0.17 (L) 0.26 - 09/08/2021 DTL 0.81 5:50 PM METALSMITH HELPER x10(9)/L Eosinophils 0.17 0.03 - 09/08/2021 DTL 0.48 5:50 PM METALSMITH HELPER x10(9)/L Basophils <0.03 0.01 - 09/08/2021 DTL 0.08 5:50 PM METALSMITH HELPER x10(9)/L Specimen Anatomical Collection Method Collection Time Receive d Time (Source) Location / / Volume Laterality Blood (Blood, 09/08/2021 5:03 PM 09/08/20 5:42 Venous) METALSMITH HELPER PM METALSMITH HELPER Vladislav Zarco M.D. LAB BLOOD ADD-ON Performing Organization Address City/State/[facility] Phon e Number [facility] - [address] [place] [address] ALT (Alanine Aminotransferase) (08/27/2021 1:06 PM METALSMITH HELPER) [facility] Help Scout Method Time Signature Alanine 30 7 - 55 08/27/2021 DTL Aminotransferase U/L 3:15 PM METALSMITH HELPER (ALT), S Specimen Anatomical Collection Method Collection Time Receive d Time (Source) Location / / Volume Laterality Blood (Blood, 08/27/2021 1:06 PM 08/27/20 21 1:42 Venous) METALSMITH HELPER PM METALSMITH HELPER Vladislav Zarco M.D. LAB BLOOD ADD-ON Performing Organization Address City/[facility] Phon e Number [facility] - [address] [place] [address] AST (Aspartate Aminotransferase) (08/27/2021 1:06 PM METALSMITH HELPER) [facility] Help Scout Method Time Signature Aspartate 25 8 - 48 08/27/2021 DTL Aminotransferase U/L 2:07 PM METALSMITH HELPER (AST), P Specimen Anatomical Collection Method Collection Time Receive d Time (Source) Location / / Volume Laterality Blood (Blood, 08/27/2021 1:06 PM 08/27/20 1:26 Venous) METALSMITH HELPER PM METALSMITH HELPER Vladislav Zarco M.D. LAB BLOOD ADD-ON Performing Organization Address City/State/ZIP Code Phon e Number [facility] - [address] [place], [place] [address] [facility] [place] [address] [facility] [address] Bilirubin, Total (08/27/2021 1:06 PM METALSMITH HELPER) P athologist Signature Bilirubin, 0.3 <=1.2 mg/dL 08/27/2021 DTL Total, P 2:07 PM METALSMITH HELPER Specimen Anatomical Collection Method Collection Time Receive d Time (Source) Location / / Volume Laterality Blood (Blood, 08/27/2021 1:06 PM 08/27/20 1:26 Venous) METALSMITH HELPER PM METALSMITH HELPER Vladislav Zarco M.D. LAB BLOOD ADD-ON Performing Organization Address City/State/ZIP Code Phon e Number [facility] - [address] [place], [place] [address] [facility] [place] [address] [facility] [address] (ABNORMAL) Alkaline Phosphatase (08/27/2021 1:06 PM METALSMITH HELPER) P athologist Signature Alkaline 145 (H) 40 - 129 08/27/2021 DTL Phosphatase, S U/L 3:15 PM METALSMITH HELPER Specimen Anatomical Collection Method Collection Time Receive d Time (Source) Location / / Volume Laterality Blood (Blood, 08/27/2021 1:06 PM 08/27/20 1:42 Venous) METALSMITH HELPER PM METALSMITH HELPER Vladislav Zarco M.D. LAB BLOOD ADD-ON Performing Organization Address City/State/ZIP Code Phon e Number [facility] - [address] [place], [place] [address] [facility] [place] [address] [facility] [address] Magnesium (08/27/2021 1:06 PM METALSMITH HELPER) P athologist Signature Magnesium, S 1.9 1.7 - 2.3 08/27/2021 DTL mg/dL 3:15 PM METALSMITH HELPER Specimen Anatomical Collection Method Collection Time Receive d Time (Source) Location / / Volume Laterality Blood (Blood, 08/27/2021 1:06 PM 08/27/20 1:42 Venous) METALSMITH HELPER PM METALSMITH HELPER Vladislav Zarco M.D. LAB BLOOD ADD-ON Performing Organization Address City/State/ZIP Code Phon e Number [facility] - [address] [place], [place] [address] [place] [address] [facility] [address] [facility] Phosphorus Inorganic (08/27/2021 1:06 PM METALSMITH HELPER) athologist Signature Phosphorus 4.0 2.5 - 4.5 08/27/2021 DTL (Inorganic), S mg/dL 3:15 PM METALSMITH HELPER Specimen Anatomical Collection Method Collection Time Receive d Time (Source) Location / / Volume Laterality Blood (Blood, 08/27/2021 1:06 PM 08/27/20 1:42 Venous) METALSMITH HELPER PM METALSMITH HELPER Vladislav Zarco M.D. LAB BLOOD ADD-ON Performing Organization Address City/State/ZIP Code Phon e Number [facility] - [address] [place], [place] [address] [place] [phone] [place] [address] Albumin (08/27/2021 1:06 PM METALSMITH HELPER) athologist Signature Albumin, S 4.0 3.5 - 5.0 08/27/2021 DTL g/dL 3:15 PM METALSMITH HELPER Specimen Anatomical Collection Method Collection Time Receive d Time (Source) Location / / Volume Laterality Blood (Blood, 08/27/2021 1:06 PM 08/27/20 1:42 Venous) METALSMITH HELPER PM METALSMITH HELPER Vladislav Zarco M.D. LAB BLOOD ADD-ON Performing Organization Address City/State/ZIP Code Phon e Number [facility] - [address] [place], [place] [address] [facility] [place] [address] [facility] [address] [facility] Basic Metabolic Panel (08/27/2021 1:06 PM METALSMITH HELPER) P athologist Signature Potassium, P 3.8 3.6 - 5.2 08/27/2021 DTL mmol/L 2:07 PM METALSMITH HELPER Sodium, P 141 135 - 145 08/27/2021 DTL mmol/L 2:07 PM METALSMITH HELPER Chloride, P 104 98 - 107 08/27/2021 DTL mmol/L 2:07 PM METALSMITH HELPER Bicarbonate, P 26 22 - 29 08/27/2021 DTL mmol/L 2:07 PM METALSMITH HELPER Anion Gap, P 11 7 - 15 08/27/2021 DTL 2:07 PM METALSMITH HELPER BUN (Blood Urea 17 8 - 24 08/27/2021 DTL Nitrogen), P mg/dL 2:07 PM METALSMITH HELPER Creatinine 0.85 0.74 - 08/27/2021 DTL 1.35 mg/dL 2:07 PM METALSMITH HELPER eGFR-Black/Afric >90 >=60 08/27/2021 DTL an Nigerian mL/min/BSA 2:07 PM METALSMITH HELPER Comment: ----ADDITIONAL INFORMATION---- Estimated GFR calculated using the 2009 CKD_EPI creatinine equation. eGFR Non-Black/ >90 >=60 mL/min/BSA 2:07 PM METALSMITH HELPER DTL Comment: ----ADDITIONAL INFORMATION---- Estimated GFR calculated using the 2009 CKD_EPI creatinine equation. Calcium, Total, P 9.0 8.6 - 10.0 mg/dL 08/27/2021 2:07 PM METALSMITH HELPER DTL Glucose, P 129 70 - 140 mg/dL 08/27/2021 2:07 PM METALSMITH HELPER D TL Specimen Anatomical Collection Method Collection Time Receive d Time (Source) Location / / Volume Laterality Blood (Blood, 08/27/2021 1:06 PM 08/27/20 1:26 Venous) METALSMITH HELPER PM METALSMITH HELPER Vladislav Zarco M.D. LAB BLOOD ADD-ON Performing Organization Address City/State/ZIP Code Phon e Number [facility] - [address] [place], [place] [address] [facility] [place] [place] [address] [facility] [address] (ABNORMAL) CBC with Differential, Blood (08/27/2021 1:06 PM METALSMITH HELPER) [facility] gist Method Time Signature Hemoglobin 12.3 (L) 13.2 - 08/27/2021 DTL 16.6 g/dL 1:35 PM METALSMITH HELPER Hematocrit 37.2 (L) 38.3 - 08/27/2021 DTL 48.6 % 1:35 PM METALSMITH HELPER Erythrocytes 4.47 4.35 - 08/27/2021 DTL 5.65 1:35 PM METALSMITH HELPER x10(12)/L MCV 83.2 78.2 - 08/27/2021 DTL 97.9 fL 1:35 PM METALSMITH HELPER RBC Distrib Width 13.2 11.8 - 08/27/2021 DTL 14.5 % 1:35 PM METALSMITH HELPER Platelet Count 165 135 - 317 08/27/2021 DTL x10(9)/L 1:35 PM METALSMITH HELPER Leukocytes 5.0 3.4 - 9.6 08/27/2021 DTL x10(9)/L 1:35 PM METALSMITH HELPER Neutrophils 3.64 1.56 - 08/27/2021 DTL 6.45 1:35 PM METALSMITH HELPER x10(9)/L Lymphocytes 0.59 (L) 0.95 - 08/27/2021 DTL 3.07 1:35 PM METALSMITH HELPER x10(9)/L Monocytes 0.57 0.26 - 08/27/2021 DTL 0.81 1:35 PM METALSMITH HELPER x10(9)/L Eosinophils 0.13 0.03 - 08/27/2021 DTL 0.48 1:35 PM METALSMITH HELPER x10(9)/L Basophils <0.03 0.01 - 08/27/2021 DTL 0.08 1:35 PM METALSMITH HELPER x10(9)/L Specimen Anatomical Collection Method Collection Time Receive d Time (Source) Location / / Volume Laterality Blood (Blood, 08/27/2021 1:06 PM 08/27/20 21 1:25 Venous) METALSMITH HELPER PM METALSMITH HELPER Vladislav Zarco M.D. LAB BLOOD ADD-ON Performing Organization Address City/State/ZIP Code Phon e Number [facility] - [address] [place], [place] [address] [facility] [place] [place] [address] [facility] [address] documented in this encounter Visit Diagnoses Diagnosis Malignant Neoplasm Of Pancreas (HCC) - P rimary Secondary Malignant Neoplasm Liver (HCC) documented in this encounter Care Teams Accounts Payable Bookkeeper Relationship Specialty Start Date End Date Elsewhere, Pcp PCP - General Family Medicine 08/12/20 documented as of this encounter
--- OUTSIDE RECORDS SUMMARY | 2022-06-18 16:08 | XMS_ITS | Encounter Summary ---
:1965 Author Organization [facility] Address [address] [place] [address] Care Team Providers Name Role Phone Elsewhere, Pcp Primary Care Provider Unavailable Reason for Referral Outpatient (Routine) - Closed Specialty Diagnoses / Procedures Referred By Contact Refer red To Contact Diagnoses Secondary Malignant Neoplasm Liver (HCC) Malignant Neoplasm Of Pancreas (HCC) Vladislav Zarco M.D. [facility] Procedures ONC Pump Disconnect [address] [place] [phone] Referral ID Status Reason Start Date Expiration Date Visits Requ ested Visits Authorized [id number] Closed 09/01/2021 09/01/2022 1 1 TYPE FINISHER Reason for Visit Episode Based Medications (Routine) - Closed Specialty Diagnoses / Procedures Referred By Contact Refer red To Contact Diagnoses Malignant Neoplasm Of Pancreas (HCC) Secondary Malignant Neoplasm Liver (HCC) Deborah Murray M.B.B.S. Rst Onc Rogo Procedures [place] ONDANSETRON HCL INJECTION [place] DEXAMETHASONE SODIUM PHOS TX LEUCOVORIN CALCIUM INJECTION TX PALONOSETRON HCL TX INJ IRINOTECAN LIPOSOME 1 MG [place] FLUOROURACIL INJECTION [address] [facility] [address] [place] [phone] Referral ID Status Reason Start Date Expiration Date Visits Requ ested Visits Authorized [id number] Closed 08/27/2021 08/27/2022 18 18 Encounter Details Date Type Department Care Team Description 09/01/2021 Infusion Department of Oncology Deborah Murray Secon dary Malignant Neoplasm Liver (HCC) (Primary Dx); in [facility] elke Valera Malignant Neoplasm Of Pancreas (HCC); [address] [place] [address] [place], [place] [phone] Social History Tobacco Use Types Packs/Day Years [...] How often do you attend anabaptist or sikh services? Never 01/15/2021 Do you belong to [...] at Date Recorded Male 08/18/2021 2:55 PM WOOD TYPE FINISHER documented as of this encounter Last Filed Vital Signs Vital Sign Reading Time Taken Comments Blood Pressure 104/66 09/01/2021 11:22 AM WOOD TYPE FINISHER Pulse 84 09/01/2021 11:22 AM WOOD TYPE FINISHER Temperature 35.7 ??C (96.3 ??F) 09/01/2021 11:22 AM WOOD TYPE FINISHER Respiratory Rate - - Oxygen Saturation - - Inhaled Oxygen Concentration - - Weight 79.2 kg (174 lb 11.4 oz) 09/01/2021 11:22 AM WOOD TYPE FINISHER Height - - Body Mass Index 25.38 08/31/2021 2:49 PM WOOD TYPE FINISHER documented in this encounter Plan of Treatment Upcoming Encounters Date Type Specialty Care Team Description 06/22/2022 Lab Laboratory Medicine HartgersMaria Del Rosario AP RN, C.N.P., M.S. [address] [place] [phone] (Mj rk) 06/22/2022 [facility] [address] [place] [phone] (Mj rk) 06/29/2022 [facility] [address] [place] [phone] (Mj godoy) 06/29/2022 [facility] .[facility]., M.S. [address] [place] [phone] (Mj godoy) Scheduled Orders Name Type Priority Associated Diagnoses Order S chedule ONC Pump Disconnect Procedures Routine Secondary Malignant E xpected: 09/03/2021, Neoplasm Liver ( HCC) Expires: 11/30/2022 Malignant Neoplasm Of Pancreas (HCC) documented as of this encounter Visit Diagnoses Diagnosis Secondary Malignant Neoplasm Liver (HCC) - Primary Malignant Neoplasm Of Pancreas (HCC) Bacteremia documented in this encounter Administered Medications Inactive Administered Medications - up to 3 most recent administrations Medication Order MAR Action Action Date Dose Rate Site atropine injection 0.25 mg Given 09/01/2021 2:59 PM WOOD TYPE FINISHER 0.25 mg 0.25 mg, intravenous, As needed, at onset of abdominal cramping/diarrhea., Starting on Mon09/01/21 at 1427, For 2 doses, May repeat 0.25 mg IV in 15 minutes if no response. Give subcutaneously if unable to give IV. Given 09/01/2021 2:13 PM WOOD TYPE FINISHER 0.25 mg dexAMETHasone injection 8 mg (DECADRON) Given 09/01/2021 11:45 AM WOOD TYPE FINISHER 8 mg 8 mg, intravenous, Once, On Mon09/01/21 at 1145, For 1 dose fluorouraciL 5,000 mg in NaCl 0.9% Given 09/01/2021 2:53 PM WOOD TYPE FINISHER 5,000 mg 2.2 mL/hr 102 mL IVPB (ADRUCIL) 5,000 mg (rounded from 4,776 mg = 2,400 mg/m2 ? 1.99 m2 Treatment Plan BSA from Measured weight), intravenous, at 2.2 mL/hr, Administer over 46 Hours, over 46 hours, First dose on Mon09/01/21 at 1345, For 1 dose, Infuse at 2.2mL/hr for 46 hours continuous infusion via CADD pump # [id number] irinotecan liposomaL 129 mg in D5W New Bag 09/01/2021 12:32 PM WOOD TYPE FINISHER 129 mg 353 mL/hr 530 mL IVPB (ONIVYDE) 129 mg (rounded from 139.3 mg = 70 mg/m2 ? 1.99 m2 Treatment Plan BSA from Measured weight), intravenous, at 353 mL/hr, Administer over 90 Minutes, Once, On Mon09/01/21 at 1145, For 1 dose, Administer immediately following the administration of oral onvansertib. Protect from light. No in-line filter. leucovorin 800 mg in NaCl 0.9% 315 New Bag 09/01/2021 2:19 PM WOOD TYPE FINISHER 800 mg 630 mL/hr mL IVPB 800 mg (rounded from 796 mg = 400 mg/m2 ? 1.99 m2 Treatment Plan BSA from Measured weight), intravenous, at 630 mL/hr, Administer over 30 Minutes, Once, On Mon09/01/21 at 1315, For 1 dose, Follows irinotecan liposome. palonosetron injection 0.25 mg (ALOXI) Given 09/01/2021 11:45 AM WOOD TYPE FINISHER 0.25 mg 0.25 mg, intravenous, Once, On Mon09/01/21 at 1145, For 1 dose [facility] IR[facility] [id number] onvansertib capsule 20 Given 12:31 PM WOOD TYPE FINISHER 20 mg mg (PCM-075) 20 mg, oral, Once, On Mon09/01/21 at 1145, For 1 dose, This is [...] prior to liposomal irinotecan Infusion. [facility] IR[facility] [id number] onvansertib capsule 5 Given 12:31 PM WOOD TYPE FINISHER 5 mg mg (PCM-075) 5 mg, oral, Once, On Mon09/01/21 at 1145, For 1 dose, This is the 5 [...] chloride 0.9 % injection 10 mL Given 09/01/2021 11:44 AM WOOD TYPE FINISHER 10 mL 10 mL, intra-catheter, As needed, line care, Starting on Mon09/01/21 at 1137, When IVAD Accessed and in Use: Flush prior to and following infusion, between multiple consecutive infusions, and prior to blood sampling. documented in this encounter Care Teams Asphalt Raker Relationship Specialty Start Date End Date Elsewhere, Pcp PCP - General Family Medicine 08/12/20 documented as of this encounter
--- OUTSIDE RECORDS SUMMARY | 2022-06-18 16:08 | XMS_ITS | Encounter Summary ---
:1965 Author Organization [facility] Address [address] [place] [phone] Care Team Providers Name Role Phone Elsewhere, Pcp Primary Care Provider Unavailable Reason for Visit Outpatient (Routine) - Closed Specialty Diagnoses / Procedures Referred By Contact Refer red To Contact Diagnoses Secondary Malignant Neoplasm Liver (HCC) Malignant Neoplasm Of Pancreas (HCC) Vladislav Zarco M.D. [facility] Procedures ONC Pump Disconnect [address] [place] [phone] Referral ID Status Reason Start Date Expiration Date Visits Requ ested Visits Authorized [id number] Closed 09/01/2021 09/01/2022 1 1 Encounter Details Date Type Department Care Team Description 09/03/2021 Infusion Department of Infusion Vladislav Zarco Secondary Malignant Neoplasm Liver (HCC) (Primary Dx); Therapy in Randall Perdomo M.D. Malignant Neoplasm Of Pancreas (HCC); [place] [address] [place] [address] Bacteremia [address] [place] [phone] Social History Tobacco Use Types Packs/Day Years [...] How often do you attend anglican or lutheran services? 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 [address] [place] [phone] (Mj godoy) 06/22/2022 Infusion Oncology Maria Del Rosario Gomez APRN, C.N .P., M.S. [address] [place] [phone] (Mj godoy) 06/29/2022 Lab Laboratory Medicine Maria Del Rosario Gomez AP RN, C.N.P., M.S. [address] [place] [phone] (Mj godoy) 06/29/2022 Infusion Oncology Maria Del Rosario Gomez APRN, C.N .P., M.S. [address] [place] [phone] (Mj godoy) documented as of this encounter Visit Diagnoses Diagnosis Secondary Malignant Neoplasm Liver (HCC) - Primary Malignant Neoplasm Of Pancreas (HCC) Bacteremia documented in this encounter Administered Medications Inactive Administered Medications - up to 3 most recent administrations Medication Order MAR Action Action Date Dose Rate Site heparin flush 500 Units Given 09/03/2021 12:46 PM DIPLOMATIC OFFICER 500 Units 500 Units, intra-catheter, As needed, line care, Starting on Mon09/03/21 at 1232, When no infusion to maintain patency: For IVAD accessed, not in use, and/or prior to hospital discharge, flush every 7 days after 0.9% preservative-free NaCL flush. For IVAD NOT accessed or used, flush every 4 weeks after 0.9% preservative-free NaCL flush. sodium chloride 0.9 % injection 10 mL Given 09/03/2021 12:46 PM DIPLOMATIC OFFICER 10 mL 10 mL, intra-catheter, As needed, line care, Starting on Mon09/03/21 at 1232, When IVAD Accessed and in Use: Flush prior to and following infusion, between multiple consecutive infusions, and prior to blood sampling. Given 09/03/2021 12:45 PM DIPLOMATIC OFFICER 10 mL documented in this encounter Care Teams Inspector Returned Materials Relationship Specialty Start Date End Date Elsewhere, Pcp PCP - General Family Medicine 08/12/20 documented as of this encounter
--- OUTSIDE RECORDS SUMMARY | 2022-06-18 16:08 | XMS_ITS | Encounter Summary ---
:1965 Author Organization [facility] Address [address] [place] [address] Care Team Providers Name Role Phone Elsewhere, Pcp Primary Care Provider Unavailable Encounter Details Date Type Department Care Team Description 08/30/2021 Clinical Communication Department of Oncology Nikki Segura in [facility] elke ChristiePh.T. [address] [facility] [phone] [place], [place] (Work) [phone] Social History Tobacco Use Types Packs/Day Years [...] er 01/15/2021 How often do you attend sabianist or anglican services? 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 - 08/30/2021 1:25 PM OYSTER CULTURIST Patient called asking if chemo appointment can be move so he doesn't have to come back to remove hisport on during . I informed patient that 09/01/2021 is the only slot we can get this week for chemo appoitnent and that there's no room to adjust due to holiday week. Patient expressed understanding and agreed to come on both 08/31/2021 to see Doctor and 09/01/2021 for chemo appointment. Patient will talk to doctor tomorrow regarding his port deaccess. ER CULTURIST documented in this encounter Plan of Treatment Upcoming Encounters Date Type Specialty Care Team Description 06/22/2022 Lab Laboratory Medicine Maria Del Rosario Gomez AP RN, C.N.P., M.S. [address] [place] [phone] (Mj godoy) 06/22/2022 Infusion Oncology Maria Del Rosario Gomez APRN, C.N .P., M.S. [address] [place] [phone] (Mj godoy) 06/29/2022 Lab Laboratory Medicine Maria Del Rosario Gomez AP RN, C.N.P., M.S. [address] [place] [phone] (Mj godoy) 06/29/2022 Infusion Oncology Maria Del Rosario Gomez APRN, C.N .P., M.S. [address] [place] [phone] (Mj godoy) documented as of this encounter Visit Diagnoses Not on filedocumented in this encounter Care Teams Airplane Gastank Liner Assembler Relationship Specialty Start Date End Date Elsewhere, Pcp PCP - General Family Medicine 08/12/20 documented as of this encounter
--- OUTSIDE RECORDS SUMMARY | 2022-06-18 16:08 | XMS_ITS | Encounter Summary ---
:1965 Author Organization [facility] Address [address] [place] [address] Care Team Providers Name Role Phone Elsewhere, Pcp Primary Care Provider Unavailable Reason for Visit Episode Based Medications (Routine) - Authorized Specialty Diagnoses / Procedures Referred By Contact Refer red To Contact Medical Oncology / Diagnoses Malignant Neoplasm Of Pancreas (HCC) Vladislav Zarco Rst Inf Onc Rogo Oncology Procedures ONCBCN INFUSION APPOINTMENT REQUEST 25 [place] ONDANSETRON HCL INJECTION [place] LEUCOVORIN CALCIUM INJECTION [place] FLUOROURACIL INJECTION ONC THER SUMMER Pereira M.D. 200 [facility] [address] [place] [phone] Referral ID Status Reason Start Date Expiration Date Visits V isits Requested Authorized [id number] Authorized 08/27/2021 08/27/2022 10 10 Encounter Details Date Type Department Care Team Description 08/27/2021 Infusion Department of Oncology Vladislav Zarco Malignant Neoplasm Of Pancreas (HCC) (Primary Dx); in [facility] elke Pereira M.D. Bacteremia; [address] [facility] [address] [facility] Secondary Malignant Neoplasm Liver ([place]) [place] [phone] (Wo rk) Social History Tobacco Use Types [...] How often do you attend restorationism or yazdanism services? Never 01/15/2021 Do you [...] at Date Recorded Male 08/18/2021 2:55 PM CHUTE BOSS documented as of this encounter Plan of Treatment Upcoming Encounters Date Type Specialty Care Team Description 06/22/2022 Lab Laboratory Medicine Maria Del Roasrio Gomez AP RN, C.N.P., M.S. [address] [place] [phone] (Mj godoy) 06/22/2022 Infusion Oncology Maria Del Rosario Gomez APRN, C.N .P., M.S. [address] [place] [phone] (Mj godoy) 06/29/2022 Lab Laboratory Medicine Maria Del Rosario Gomez AP RN, C.N.P., M.S. [address] [place] [phone] (Mj godoy) 06/29/2022 Infusion Oncology Maria Del Rosario Gomez APRN, C.N .P., M.S. [address] [place] [phone] (Mj godoy) documented as of this encounter Visit Diagnoses Diagnosis Malignant Neoplasm Of Pancreas (HCC) - P rimary Bacteremia Secondary Malignant Neoplasm Liver (HCC) documented in this encounter Administered Medications Inactive Administered Medications - up to 3 most recent administrations Medication Order MAR Action Action Date Dose Rate Site heparin flush 500 Units Given 08/27/2021 1:15 PM CHUTE BOSS 500 Units 500 Units, intra-catheter, As needed, line care, Starting on Mon08/27/21 at 1328, When no infusion to maintain patency: For IVAD accessed, not in use, and/or prior to hospital discharge, flush every 7 days after 0.9% preservative-free NaCL flush. For IVAD NOT accessed or used, flush every 4 weeks after 0.9% preservative-free NaCL flush. sodium chloride 0.9 % injection 20 mL Given 08/27/2021 1:10 PM CHUTE BOSS 20 mL 20 mL, intra-catheter, As needed, line care, Starting on Mon08/27/21 at 1328, When IVAD Accessed and in Use: Flush post blood transfusion or post blood sampling. documented in this encounter Care Teams Master Scheduler Relationship Specialty Start Date End Date Elsewhere, Pcp PCP - General Family Medicine 08/12/20 documented as of this encounter
--- OUTSIDE RECORDS SUMMARY | 2022-06-18 16:08 | XMS_ITS | Encounter Summary ---
:1965 Author Organization [facility] Address [address] [place] [address] Care Team Providers Name Role Phone Elsewhere, [...] LIPOSOME 1 MG [place] FLUOROURACIL INJECTION 200 [facility] 200 [place] [phone] Referral ID Status Reason Start Date Expiration Date Visits Requ ested Visits Authorized [id number] Closed 08/27/2021 08/27/2022 18 18 Encounter Details Date Type Department Care Team Description 08/31/2021 Nurse Only Department of Oncology in Fidel Murray M.B.B.S. [address] [place] [phone] [place], [place] Emma Mora RRiazNRiaz [address] [place] [phone] Social History Tobacco Use Types Packs/Day [...] How often do you attend congregation or christianity services? Never 01/15/2021 Do you [...] at Date Recorded Male 08/18/2021 2:55 PM REGIONAL EDUCATION COORDINATOR documented as of this encounter Last Filed Vital Signs Vital Sign Reading Time Taken Comments Blood Pressure 107/70 08/31/2021 2:49 PM REGIONAL EDUCATION COORDINATOR Pulse 81 08/31/2021 2:49 PM REGIONAL EDUCATION COORDINATOR Temperature 36.1 ??C (97 ??F) 08/31/2021 2:49 PM REGIONAL EDUCATION COORDINATOR Respiratory Rate 16 08/31/2021 2:49 PM REGIONAL EDUCATION COORDINATOR Oxygen Saturation 97% 08/31/2021 2:49 PM REGIONAL EDUCATION COORDINATOR Inhaled Oxygen Concentration - - Weight 80.2 kg (176 lb 12.9 oz) 08/31/2021 2:49 PM REGIONAL EDUCATION COORDINATOR Height 176.7 cm (5' 9.57) 08/31/2021 2:49 PM REGIONAL EDUCATION COORDINATOR Body Mass Index 25.69 08/31/2021 2:49 PM REGIONAL EDUCATION COORDINATOR documented in this encounter Plan of Treatment Upcoming Encounters Date Type Specialty Care Team Description 06/22/2022 Lab Laboratory Medicine Maria Del Rosario Gomez AP RN, C.N.P., M.S. [address] [place] [phone] (Mj godoy) 06/22/2022 Infusion Oncology Maria Del Rosario Gomez APRN, C.N .P., M.S. [address] [place] [phone] (Mj godoy) 06/29/2022 Lab Laboratory Medicine Maria Del Rosario Gomez AP RN, C.N.P., M.S. [address] [place] [phone] (Mj godoy) 06/29/2022 Infusion Oncology Maria Del Rosario Gomez APRN, C.N .P., M.S. [address] [place] [phone] (Mj godoy) documented as of this encounter Visit Diagnoses Diagnosis Secondary Malignant Neoplasm Liver (HCC) Malignant Neoplasm Of Pancreas (HCC) documented in this encounter Care Teams Wastewater Treatment Plant Supervisor Relationship Specialty Start Date End Date Elsewhere, Pcp PCP - General Family Medicine 08/12/20 documented as of this encounter
--- OUTSIDE RECORDS SUMMARY | 2022-06-18 16:08 | XMS_ITS | Encounter Summary ---
:1965 Author Organization [facility] Address [address] [place] [address] Care Team Providers Name Role Phone Elsewhere, Pcp Primary Care Provider Unavailable Reason for Visit Episode Based Medications (Routine) - Closed Specialty Diagnoses / Procedures Referred By Contact Refer red To Contact Diagnoses Malignant Neoplasm Of Pancreas (HCC) Secondary Malignant Neoplasm Liver (HCC) Deborah Murray M.B.B.S. Rst Onc Rogo Procedures [place] ONDANSETRON HCL INJECTION [place] DEXAMETHASONE SODIUM PHOS [place] LEUCOVORIN CALCIUM INJECTION [place] PALONOSETRON HCL [place] INJ IRINOTECAN LIPOSOME 1 MG [place] FLUOROURACIL INJECTION [address] [facility] [address] [place] [phone] Referral ID Status Reason Start Date Expiration Date Visits Requ ested Visits Authorized [id number] Closed 08/27/2021 08/27/2022 18 18 Encounter Details Date Type Department Care Team Description 08/31/2021 Office Visit Department of Oncology Teddy Zarco Malignant Neoplasm Liver (HCC); in [place], Vladislav Pereira M.D. Malignant Neoplasm Of Pancreas (HCC) [address] [place] [phone] Social History Tobacco Use Types Packs/Day Years [...] How often do you attend mosque or episcopalian services? Never 01/15/2021 Do you [...] at Date Recorded Male 08/18/2021 2:55 PM TWISTING OPERATOR documented as of this encounter Progress Notes Vladislav Zarco M.D. - 08/31/2021 3:30 PM CST SUBJECTIVE PRIMARY CARE PHYSICIAN ELSEWHERE, PCP Patient Care Team: Adrian Mills M.D. as External Primary Care Physician (Family Medicine) LOCAL ONCOLOGIST No care sports team marketing intern to display PRIMARY [place] ONCOLOGIST Deborah Murray M.B.B.S. Maria Del Rosario Gomez, GUERO, C.N.P., M.S. CHIEF COMPLAINT / REASON FOR VISIT Adam Campbell is a 56 y.o. male who presents for evaluation of metastatic pancreatic cancer. His biopsy was ???suspicious for adenocarcinoma but in the setting of strongly suspicious MRI, PET, CT scan. HISTORY OF PRESENT ILLNESS Oncology History Oncology [...] (01/25/2021 - 03/02/2021) Site: Pancreas Technique: 3D ASSISTANT PROFESSOR Goal: Curative Planned Treatment Start Date: 01/25/2021 01/25/2021 - 03/01/2021 Chemotherapy Gemcitabine ( with Radiation ) Start Date: 01/25/2021 08/13/2021 Genetic Testing and Tumor Genotyping [facility] pancreas panel negative 08/27/2021 - Research Study Participant Research Study: A Study to Analyze Onvansertib Treatment in Patients with Metastatic Pancreatic Ductal Adenocarcinoma ([id number]) Treatment Protocol: [facility] CRDF-001 ( Onvansertib (Days 1-10) / Fluorouracil / Leucovorin / Nanoliposomal Irinotecan ) ONC General HPI The following portions of the patient's history were reviewed and updated as appropriate: allergies,current medications, medical history and problem list. Rate your distress: 2 REVIEW OF SYSTEMS REVIEW OF SYSTEMS OBJECTIVE There were no vitals taken for [...] (HCC) #2 Malignant Neoplasm Of Pancreas (HCC) I spoke with the patient about the current situation along with the rationale for the trial. I also spoke with Dr. Murray about the biopsy. We all agreed that is reasonable to proceed. Will start therapy tomorrow per protocol. PATIENT EDUCATION Ready to learn, no apparent learning barriers were identified; learning preferences include listening. Explained diagnosis and treatment plan; patient expressed understanding of the content. ADMINISTRATIVE BILLING I personally spent 20 minutes in care of the patient today. Time includes both non face to face and face to face patient care. TING OPERATOR documented in this encounter Plan of Treatment Upcoming Encounters Date Type Specialty Care Team Description 06/22/2022 Lab Laboratory Medicine Maria Del Rosario Gomez AP RN, C.N.P., M.S. [address] [place] [phone] (Mj godoy) 06/22/2022 Infusion Oncology Maria Del Rosario Gomez APRN, C.N .P., M.S. [address] [place] [phone] (Mj godoy) 06/29/2022 Lab Laboratory Medicine Maria Del Rosario Gomez AP RN, C.N.P., M.S. [address] [place] [phone] (Mj godoy) 06/29/2022 Infusion Oncology Maria Del Rosario Gomez APRN, C.N .P., M.S. [address] [place] [phone] (Mj godoy) documented as of this encounter Visit Diagnoses Diagnosis Secondary Malignant Neoplasm Liver (HCC) Malignant Neoplasm Of Pancreas (HCC) documented in this encounter Care Teams Rack Puller Relationship Specialty Start Date End Date Elsewhere, Pcp PCP - General Family Medicine 08/12/20 documented as of this encounter
--- OUTSIDE RECORDS SUMMARY | 2022-06-18 16:08 | XMS_ITS | Encounter Summary ---
:1965 Author Organization [facility] Address [address] [place] [address] Care Team Providers Name Role Phone Elsewhere, [...] LIPOSOME 1 MG UT FLUOROURACIL INJECTION [address] [facility] [address] [place] [phone] Referral ID Status Reason Start Date Expiration Date Visits Requ ested Visits Authorized [id number] Closed 08/27/2021 08/27/2022 18 18 Encounter Details Date Type Department Care Team Description 08/31/2021 Lab Department of Infusion Deborah Murray Secon dary Malignant Neoplasm Liver (HCC) (Primary Dx); Therapy in [facility] M.B.B.S. Malignant Neoplasm Of Pancreas (HCC); [place] [address] [facility] Bacteremia [address] [place] [phone] (Wo rk) Social History Tobacco Use Types [...] often do you attend oriental orthodox or hindu services? Never 01/15/2021 Do you [...] for the very basics like Not v cortze hard 01/15/2021 food, housing, medical care, and [...] Date Recorded Male 08/18/2021 2:55 PM DIRECTOR ENVIRONMENTAL documented as of this encounter Plan of Treatment Upcoming Encounters Date Type Specialty Care Team Description 06/22/2022 Lab Laboratory Medicine Maria Del Rosario Gomez AP RN, C.N.P., M.S. [address] [place] [phone] (Mj godoy) 06/22/2022 Infusion Oncology Maria Del Rosario Gomez APRN, C.N .P., M.S. [address] [place] [address] [phone] (Mj godoy) 06/29/2022 Lab Laboratory Medicine Maria Del Rosario Gomez AP RN, C.N.P., M.S. [address] [place] [address] [phone] (Mj godoy) 06/29/2022 Infusion Oncology Maria Del Rosario Gomez APRN, C.N .P., M.S. [address] [place] [address] [phone] (Mj godoy) documented as of this encounter Procedures Procedure Name Priority Date/Time Associated Comments Diagnosis CBC WITH DIFFERENTIAL, B Routine 08/31/2021 1:14 Secondary Results for this PM DIRECTOR ENVIRONMENTAL Malignant Neoplasm procedure are in Liver (HCC) the results Malignant Neoplasm section. Of Pancreas (HCC) ALANINE AMINOTRANSFERASE Routine 08/31/2021 1:14 Secondary Results for this (ALT), S/P PM DIRECTOR ENVIRONMENTAL Malignant Neoplasm procedure are in Liver (HCC) the results Malignant Neoplasm section. Of Pancreas (HCC) ASPARTATE Routine 08/31/2021 1:14 Secondary Results for this AMINOTRANSFERASE (AST), PM DIRECTOR ENVIRONMENTAL Malignant Neoplas m procedure are in S/P Liver (HCC) the results Malignant Neoplasm section. Of Pancreas (HCC) PHOSPHORUS (INORGANIC), Routine 08/31/2021 1:14 Secondary R esults for this S PM DIRECTOR ENVIRONMENTAL Malignant Neoplasm procedure are in Liver (HCC) the results Malignant Neoplasm section. Of Pancreas (HCC) ALKALINE PHOSPHATASE, Routine 08/31/2021 1:14 Secondary Res ults for this S/P PM DIRECTOR ENVIRONMENTAL Malignant Neoplasm procedure are in Liver (HCC) the results Malignant Neoplasm section. Of Pancreas (HCC) MAGNESIUM, S Routine 08/31/2021 1:14 Secondary Results for this PM DIRECTOR ENVIRONMENTAL Malignant Neoplasm procedure are in Liver (HCC) the results Malignant Neoplasm section. Of Pancreas (HCC) BILIRUBIN, TOT, S/P Routine 08/31/2021 1:14 Secondary Resul ts for this PM DIRECTOR ENVIRONMENTAL Malignant Neoplasm procedure are in Liver (HCC) the results Malignant Neoplasm section. Of Pancreas (HCC) ALBUMIN, S/P Routine 08/31/2021 1:14 Secondary Results for this PM DIRECTOR ENVIRONMENTAL Malignant Neoplasm procedure are in Liver (HCC) the results Malignant Neoplasm section. Of Pancreas (HCC) BASIC METABOLIC PANEL, Routine 08/31/2021 1:14 Secondary Re sults for this S/P PM DIRECTOR ENVIRONMENTAL Malignant Neoplasm procedure are in Liver (HCC) the results Malignant Neoplasm section. Of Pancreas (HCC) documented in this encounter Results ALT (Alanine Aminotransferase) (08/31/2021 1:14 PM DIRECTOR ENVIRONMENTAL) [facility] gist Method Time Signature Alanine 28 7 - 55 08/31/2021 DTL Aminotransferase U/L 4:32 PM DIRECTOR ENVIRONMENTAL (ALT), S Specimen Anatomical Collection Method Collection Time Receive d Time (Source) Location / / Volume Laterality Blood (Blood, 08/31/2021 1:14 PM 08/31/20 2:35 Venous) DIRECTOR ENVIRONMENTAL PM DIRECTOR ENVIRONMENTAL Deborah Wee Ma M.B.B.S. LAB BLOOD ADD-ON Performing Organization Address City/[facility] Phon e Number [facility] - [address] AST (Aspartate Aminotransferase) (08/31/2021 1:14 PM DIRECTOR ENVIRONMENTAL) Patholo gist Method Time Signature Aspartate 20 8 - 48 08/31/2021 DTL Aminotransferase U/L 3:57 PM DIRECTOR ENVIRONMENTAL (AST), S Specimen Anatomical Collection Method Collection Time Receive d Time (Source) Location / / Volume Laterality Blood (Blood, 08/31/2021 1:14 PM 08/31/20 2:33 Venous) DIRECTOR ENVIRONMENTAL PM DIRECTOR ENVIRONMENTAL Deborah VillaB.SRiaz LAB BLOOD ADD-ON Performing Organization Address City/[facility] Phon e Number [facility] - [address] Bilirubin, Total (08/31/2021 1:14 PM DIRECTOR ENVIRONMENTAL) P athologist Signature Bilirubin, 0.4 <=1.2 mg/dL 08/31/2021 DTL Total, S 3:57 PM DIRECTOR ENVIRONMENTAL Specimen Anatomical Collection Method Collection Time Receive d Time (Source) Location / / Volume Laterality Blood (Blood, 08/31/2021 1:14 PM 08/31/20 2:33 Venous) DIRECTOR ENVIRONMENTAL PM DIRECTOR ENVIRONMENTAL Deborah VillaB.S. LAB BLOOD ADD-ON Performing Organization Address City/[facility] Phon e Number [facility] - [address] [place], [place] [address] [place] [address] (ABNORMAL) Alkaline Phosphatase (08/31/2021 1:14 PM DIRECTOR ENVIRONMENTAL) P athologist Signature Alkaline 139 (H) 40 - 129 08/31/2021 DTL Phosphatase, S U/L 3:57 PM DIRECTOR ENVIRONMENTAL Specimen Anatomical Collection Method Collection Time Receive d Time (Source) Location / / Volume Laterality Blood (Blood, 08/31/2021 1:14 PM 08/31/20 2:33 Venous) DIRECTOR ENVIRONMENTAL PM DIRECTOR ENVIRONMENTAL Deborah VillaB.S. LAB BLOOD ADD-ON Performing Organization Address City/[facility]/ZIP Code Phon e Number [facility] - [address] [place], [place] [address] [place] [phone] [place] [address] [address] [facility] Magnesium (08/31/2021 1:14 PM DIRECTOR ENVIRONMENTAL) P athologist Signature Magnesium, S 2.1 1.7 - 2.3 08/31/2021 DTL mg/dL 3:57 PM DIRECTOR ENVIRONMENTAL Specimen Anatomical Collection Method Collection Time Receive d Time (Source) Location / / Volume Laterality Blood (Blood, 08/31/2021 1:14 PM 08/31/20 2:33 Venous) DIRECTOR ENVIRONMENTAL PM DIRECTOR ENVIRONMENTAL Deborah VillaB.SRiaz LAB BLOOD ADD-ON Performing Organization Address City/[facility]/ZIP Code Phon e Number [facility] - [address] [place], [place] [address] [place] [phone] [place] [address] [address] [facility] Phosphorus Inorganic (08/31/2021 1:14 PM DIRECTOR ENVIRONMENTAL) athologist Signature Phosphorus 3.9 2.5 - 4.5 08/31/2021 DTL (Inorganic), S mg/dL 3:57 PM DIRECTOR ENVIRONMENTAL Specimen Anatomical Collection Method Collection Time Receive d Time (Source) Location / / Volume Laterality Blood (Blood, 08/31/2021 1:14 PM 08/31/20 2:33 Venous) DIRECTOR ENVIRONMENTAL PM DIRECTOR ENVIRONMENTAL Deborah VillaB.S. LAB BLOOD ADD-ON Performing Organization Address City/[facility]/ZIP Code Phon e Number [facility] - [address] [place], [place] [address] [place] [address] Albumin (08/31/2021 1:14 PM DIRECTOR ENVIRONMENTAL) P athologist Signature Albumin, S 4.0 3.5 - 5.0 08/31/2021 DTL g/dL 3:57 PM DIRECTOR ENVIRONMENTAL Specimen Anatomical Collection Method Collection Time Receive d Time (Source) Location / / Volume Laterality Blood (Blood, 08/31/2021 1:14 PM 08/31/20 2:33 Venous) DIRECTOR ENVIRONMENTAL PM DIRECTOR ENVIRONMENTAL Deborah Valera LAB BLOOD ADD-ON Performing Organization Address City/State/ZIP Code Phon e Number [facility] - [address] [place], [place] [address] [facility] [place] [address] [facility] [address] [facility] Basic Metabolic Panel (08/31/2021 1:14 PM DIRECTOR ENVIRONMENTAL) P athologist Signature Potassium, S 4.0 3.6 - 5.2 08/31/2021 DTL mmol/L 3:57 PM DIRECTOR ENVIRONMENTAL Sodium, S 140 135 - 145 08/31/2021 DTL mmol/L 3:57 PM DIRECTOR ENVIRONMENTAL Chloride, S 104 98 - 107 08/31/2021 DTL mmol/L 3:57 PM DIRECTOR ENVIRONMENTAL Bicarbonate, S 24 22 - 29 08/31/2021 DTL mmol/L 3:57 PM DIRECTOR ENVIRONMENTAL Anion Gap 12 7 - 15 08/31/2021 DTL 3:57 PM DIRECTOR ENVIRONMENTAL BUN (Blood Urea 16 8 - 24 08/31/2021 DTL Nitrogen), S mg/dL 3:57 PM DIRECTOR ENVIRONMENTAL Creatinine 0.91 0.74 - 08/31/2021 DTL 1.35 mg/dL 3:57 PM DIRECTOR ENVIRONMENTAL eGFR-Non >90 >=60 08/31/2021 DTL Black/ mL/min/BSA 3:57 PM DIRECTOR ENVIRONMENTAL [place] Comment: ----ADDITIONAL INFORMATION---- Estimated GFR calculated using the 2009 CKD_EPI creatinine equation. eGFR-Black/ >90 >=60 mL/min/BSA 2020 3:57 PM DIRECTOR ENVIRONMENTAL DTL Comment: ----ADDITIONAL INFORMATION---- Estimated GFR calculated using the 2009 CKD_EPI creatinine equation. Calcium, Total, S 9.1 8.6 - 10.0 mg/dL 08/31/2021 3:57 PM DIRECTOR ENVIRONMENTAL DTL Glucose, S 98 70 - 140 mg/dL 08/31/2021 3:57 PM DIRECTOR ENVIRONMENTAL D TL Specimen Anatomical Collection Method Collection Time Receive d Time (Source) Location / / Volume Laterality Blood (Blood, 08/31/2021 1:14 PM 08/31/20 2:33 Venous) DIRECTOR ENVIRONMENTAL PM DIRECTOR ENVIRONMENTAL Deborah Valera LAB BLOOD ADD-ON Performing Organization Address City/State/ZIP Code Phon e Number [facility] - [address] [place], [place] [address] [facility] [place] [address] [facility] [address] (ABNORMAL) CBC with Differential, Blood (08/31/2021 1:14 PM DIRECTOR ENVIRONMENTAL) [facility] Method Time Signature Hemoglobin 13.0 (L) 13.2 - 08/31/2021 DTL 16.6 g/dL 2:22 PM DIRECTOR ENVIRONMENTAL Hematocrit 40.3 38.3 - 08/31/2021 DTL 48.6 % 2:22 PM DIRECTOR ENVIRONMENTAL Erythrocytes 4.79 4.35 - 08/31/2021 DTL 5.65 2:22 PM DIRECTOR ENVIRONMENTAL x10(12)/L MCV 84.1 78.2 - 08/31/2021 DTL 97.9 fL 2:22 PM DIRECTOR ENVIRONMENTAL RBC Distrib Width 13.5 11.8 - 08/31/2021 DTL 14.5 % 2:22 PM DIRECTOR ENVIRONMENTAL Platelet Count 186 135 - 317 08/31/2021 DTL x10(9)/L 2:22 PM DIRECTOR ENVIRONMENTAL Leukocytes 6.3 3.4 - 9.6 08/31/2021 DTL x10(9)/L 2:22 PM DIRECTOR ENVIRONMENTAL Neutrophils 4.71 1.56 - 08/31/2021 DTL 6.45 2:22 PM DIRECTOR ENVIRONMENTAL x10(9)/L Lymphocytes 0.75 (L) 0.95 - 08/31/2021 DTL 3.07 2:22 PM DIRECTOR ENVIRONMENTAL x10(9)/L Monocytes 0.69 0.26 - 08/31/2021 DTL 0.81 2:22 PM DIRECTOR ENVIRONMENTAL x10(9)/L Eosinophils 0.14 0.03 - 08/31/2021 DTL 0.48 2:22 PM DIRECTOR ENVIRONMENTAL x10(9)/L Basophils <0.03 0.01 - 08/31/2021 DTL 0.08 2:22 PM DIRECTOR ENVIRONMENTAL x10(9)/L Specimen Anatomical Collection Method Collection Time Receive d Time (Source) Location / / Volume Laterality Blood (Blood, 08/31/2021 1:14 PM 08/31/20 2:12 Venous) DIRECTOR ENVIRONMENTAL PM DIRECTOR ENVIRONMENTAL Deborah Valera LAB BLOOD ADD-ON Performing Organization Address City/State/ZIP Code Phon e Number [facility] - [address] [place], [place] [address] [facility] [place] [address] [facility] [address] documented in this encounter Visit Diagnoses Diagnosis 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 For IVAD NOT accessed or used, flush every 4 weeks after 0.9% preservative-free NaCL flush. sodium chloride 0.9 % injection 10 mL Given 08/31/2021 1:16 PM DIRECTOR ENVIRONMENTAL 10 mL 10 mL, intra-catheter, As needed, line care, Starting on Mon08/31/21 at 1306, When IVAD Accessed and in Use: Flush prior to and following infusion, between multiple consecutive infusions, and prior to blood sampling. sodium chloride 0.9 % injection 20 mL Given 08/31/2021 1:16 PM DIRECTOR ENVIRONMENTAL 20 mL 20 mL, intra-catheter, As needed, line care, Starting on Mon08/31/21 at 1306, When IVAD Accessed and in Use: Flush post blood transfusion or post blood sampling. documented in this encounter Care Teams Thermal Molder Relationship Specialty Start Date End Date Elsewhere, Pcp PCP - General Family Medicine 08/12/20 documented as of this encounter
--- OUTSIDE RECORDS SUMMARY | 2022-06-18 16:08 | XMS_ITS | Encounter Summary ---
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 Rst Onc Rogo Procedures TN ONDANSETRON HCL INJECTION TN DEXAMETHASONE SODIUM PHOS TN LEUCOVORIN CALCIUM INJECTION TN PALONOSETRON HCL TN INJ IRINOTECAN LIPOSOME 1 MG TN FLUOROURACIL INJECTION [address] [place] [address] [place] [phone] Referral ID Status Reason Start Date Expiration Date Visits Requ ested Visits Authorized [id number] Closed 08/27/2021 08/27/2022 18 18 Encounter Details Date Type Department Care Team Description 08/27/2021 Lab Department of Laboratory Everette Zarco rt Secondary Malignant Neoplasm Liver (HCC) (Primary Dx); Medicine and Pathology, R, M.D. Malignant Neoplasm Of Pancreas (HCC); [place] [address] [place] [address] [place] [phone] [place] [address] [phone] Social History Tobacco Use Types Packs/Day Years [...] er 01/15/2021 How often do you attend druze or hindu services? 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 [address] [place] [phone] (Mj godoy) 06/22/2022 Infusion Oncology Maria Del Rosario Gomez APRN, C.N .P., M.S. [address] [place] [phone] (Mj godoy) 06/29/2022 Lab Laboratory Medicine Maria Del Rosario Gomez AP RN, C.N.P., M.S. [address] [place] [phone] (Mj godoy) 06/29/2022 Infusion Oncology Maria Del Rosario Gomez APRN, C.N .P., M.S. [address] [place] [phone] (Mj godoy) documented as of this encounter Procedures Procedure Name Priority Date/Time Associated Comments Diagnosis CBC WITH DIFFERENTIAL, B Routine 08/27/2021 1:06 Secondary Results for this PM SENIOR FINANCIAL REPORTING ACCOUNTANT Malignant Neoplasm procedure are in Liver (HCC) the results Malignant Neoplasm section. Of Pancreas (HCC) ALANINE AMINOTRANSFERASE Routine 08/27/2021 1:06 Secondary Results for this (ALT), S/P PM SENIOR FINANCIAL REPORTING ACCOUNTANT Malignant Neoplasm procedure are in Liver (HCC) the results Malignant Neoplasm section. Of Pancreas (HCC) ASPARTATE Routine 08/27/2021 1:06 Secondary Results for this AMINOTRANSFERASE (AST), PM SENIOR FINANCIAL REPORTING ACCOUNTANT Malignant Neoplas m procedure are in S/P Liver (HCC) the results Malignant Neoplasm section. Of Pancreas (HCC) PHOSPHORUS (INORGANIC), Routine 08/27/2021 1:06 Secondary R esults for this S PM SENIOR FINANCIAL REPORTING ACCOUNTANT Malignant Neoplasm procedure are in Liver (HCC) the results Malignant Neoplasm section. Of Pancreas (HCC) ALKALINE PHOSPHATASE, Routine 08/27/2021 1:06 Secondary Res ults for this S/P PM SENIOR FINANCIAL REPORTING ACCOUNTANT Malignant Neoplasm procedure are in Liver (HCC) the results Malignant Neoplasm section. Of Pancreas (HCC) MAGNESIUM, S Routine 08/27/2021 1:06 Secondary Results for this PM SENIOR FINANCIAL REPORTING ACCOUNTANT Malignant Neoplasm procedure are in Liver (HCC) the results Malignant Neoplasm section. Of Pancreas (HCC) BILIRUBIN, TOT, S/P Routine 08/27/2021 1:06 Secondary Resul ts for this PM SENIOR FINANCIAL REPORTING ACCOUNTANT Malignant Neoplasm procedure are in Liver (HCC) the results Malignant Neoplasm section. Of Pancreas (HCC) ALBUMIN, S/P Routine 08/27/2021 1:06 Secondary Results for this PM SENIOR FINANCIAL REPORTING ACCOUNTANT Malignant Neoplasm procedure are in Liver (HCC) the results Malignant Neoplasm section. Of Pancreas (HCC) BASIC METABOLIC PANEL, Routine 08/27/2021 1:06 Secondary Re sults for this S/P PM SENIOR FINANCIAL REPORTING ACCOUNTANT Malignant Neoplasm procedure are in Liver (HCC) the results Malignant Neoplasm section. Of Pancreas (HCC) documented in this encounter Results ALT (Alanine Aminotransferase) (08/27/2021 1:06 PM SENIOR FINANCIAL REPORTING ACCOUNTANT) [facility] gist Method Time Signature Alanine 30 7 - 55 08/27/2021 DTL Aminotransferase U/L 3:15 PM SENIOR FINANCIAL REPORTING ACCOUNTANT (ALT), S Specimen Anatomical Collection Method Collection Time Receive d Time (Source) Location / / Volume Laterality Blood (Blood, 08/27/2021 1:06 PM 08/27/20 21 1:42 Venous) SENIOR FINANCIAL REPORTING ACCOUNTANT PM SENIOR FINANCIAL REPORTING ACCOUNTANT Vladislav Zarco M.D. LAB BLOOD ADD-ON Performing Organization Address City/[facility] Phon e Number [facility] - [address] [facility] AST (Aspartate Aminotransferase) (08/27/2021 1:06 PM SENIOR FINANCIAL REPORTING ACCOUNTANT) Patholo gist Method Time Signature Aspartate 25 8 - 48 08/27/2021 DTL Aminotransferase U/L 2:07 PM SENIOR FINANCIAL REPORTING ACCOUNTANT (AST), P Specimen Anatomical Collection Method Collection Time Receive d Time (Source) Location / / Volume Laterality Blood (Blood, 08/27/2021 1:06 PM 08/27/20 1:26 Venous) SENIOR FINANCIAL REPORTING ACCOUNTANT PM SENIOR FINANCIAL REPORTING ACCOUNTANT Vladislav Zarco M.D. LAB BLOOD ADD-ON Performing Organization Address City/[facility]/ZIP Code Phon e Number [facility] - [address] [place] [address] [address] [facility] Bilirubin, Total (08/27/2021 1:06 PM SENIOR FINANCIAL REPORTING ACCOUNTANT) P athologist Signature Bilirubin, 0.3 <=1.2 mg/dL 08/27/2021 DTL Total, P 2:07 PM SENIOR FINANCIAL REPORTING ACCOUNTANT Specimen Anatomical Collection Method Collection Time Receive d Time (Source) Location / / Volume Laterality Blood (Blood, 08/27/2021 1:06 PM 08/27/20 1:26 Venous) SENIOR FINANCIAL REPORTING ACCOUNTANT PM SENIOR FINANCIAL REPORTING ACCOUNTANT Vladislav Zarco M.D. LAB BLOOD ADD-ON Performing Organization Address City/State/ZIP Code Phon e Number [facility] - [address] [place], [place] [address] (ABNORMAL) Alkaline Phosphatase (08/27/2021 1:06 PM SENIOR FINANCIAL REPORTING ACCOUNTANT) P athologist Signature Alkaline 145 (H) 40 - 129 08/27/2021 DTL Phosphatase, S U/L 3:15 PM SENIOR FINANCIAL REPORTING ACCOUNTANT Specimen Anatomical Collection Method Collection Time Receive d Time (Source) Location / / Volume Laterality Blood (Blood, 08/27/2021 1:06 PM 08/27/20 1:42 Venous) SENIOR FINANCIAL REPORTING ACCOUNTANT PM SENIOR FINANCIAL REPORTING ACCOUNTANT Vladislav Zarco M.D. LAB BLOOD ADD-ON Performing Organization Address City/State/ZIP Code Phon e Number [facility] - [address] [place], [place] [address] [place] [address] [facility] [address] [facility] Magnesium (08/27/2021 1:06 PM SENIOR FINANCIAL REPORTING ACCOUNTANT) P athologist Signature Magnesium, S 1.9 1.7 - 2.3 08/27/2021 DTL mg/dL 3:15 PM SENIOR FINANCIAL REPORTING ACCOUNTANT Specimen Anatomical Collection Method Collection Time Receive d Time (Source) Location / / Volume Laterality Blood (Blood, 08/27/2021 1:06 PM 08/27/20 1:42 Venous) SENIOR FINANCIAL REPORTING ACCOUNTANT PM SENIOR FINANCIAL REPORTING ACCOUNTANT Vladislav Zarco M.D. LAB BLOOD ADD-ON Performing Organization Address City/[facility]/ZIP Code Phon e Number [facility] - [address] [place], [place] [address] [place] [address] [facility] [address] [facility] Phosphorus Inorganic (08/27/2021 1:06 PM SENIOR FINANCIAL REPORTING ACCOUNTANT) P athologist Signature Phosphorus 4.0 2.5 - 4.5 08/27/2021 DTL (Inorganic), S mg/dL 3:15 PM SENIOR FINANCIAL REPORTING ACCOUNTANT Specimen Anatomical Collection Method Collection Time Receive d Time (Source) Location / / Volume Laterality Blood (Blood, 08/27/2021 1:06 PM 08/27/20 1:42 Venous) SENIOR FINANCIAL REPORTING ACCOUNTANT PM SENIOR FINANCIAL REPORTING ACCOUNTANT Vladislav Zarco M.D. LAB BLOOD ADD-ON Performing Organization Address City/State/ZIP Code Phon e Number [facility] - [address] [place], [place] [address] [place] [address] [facility] [address] [facility] Albumin (08/27/2021 1:06 PM SENIOR FINANCIAL REPORTING ACCOUNTANT) P athologist Signature Albumin, S 4.0 3.5 - 5.0 08/27/2021 DTL g/dL 3:15 PM SENIOR FINANCIAL REPORTING ACCOUNTANT Specimen Anatomical Collection Method Collection Time Receive d Time (Source) Location / / Volume Laterality Blood (Blood, 08/27/2021 1:06 PM 08/27/20 1:42 Venous) SENIOR FINANCIAL REPORTING ACCOUNTANT PM SENIOR FINANCIAL REPORTING ACCOUNTANT Vladislav Zarco M.D. LAB BLOOD ADD-ON Performing Organization Address City/State/ZIP Code Phon e Number [facility] - [address] [place], [place] [address] [facility] [place] [address] [facility] [address] Basic Metabolic Panel (08/27/2021 1:06 PM SENIOR FINANCIAL REPORTING ACCOUNTANT) P athologist Signature Potassium, P 3.8 3.6 - 5.2 08/27/2021 DTL mmol/L 2:07 PM SENIOR FINANCIAL REPORTING ACCOUNTANT Sodium, P 141 135 - 145 08/27/2021 DTL mmol/L 2:07 PM SENIOR FINANCIAL REPORTING ACCOUNTANT Chloride, P 104 98 - 107 08/27/2021 DTL mmol/L 2:07 PM SENIOR FINANCIAL REPORTING ACCOUNTANT Bicarbonate, P 26 22 - 29 08/27/2021 DTL mmol/L 2:07 PM SENIOR FINANCIAL REPORTING ACCOUNTANT Anion Gap, P 11 7 - 15 08/27/2021 DTL 2:07 PM SENIOR FINANCIAL REPORTING ACCOUNTANT BUN (Blood Urea 17 8 - 24 08/27/2021 DTL Nitrogen), P mg/dL 2:07 PM SENIOR FINANCIAL REPORTING ACCOUNTANT Creatinine 0.85 0.74 - 08/27/2021 DTL 1.35 mg/dL 2:07 PM SENIOR FINANCIAL REPORTING ACCOUNTANT eGFR-Black/Afric >90 >=60 08/27/[address] [place] mL/min/BSA 2:07 PM SENIOR FINANCIAL REPORTING ACCOUNTANT Comment: ----ADDITIONAL INFORMATION---- Estimated GFR calculated using the 2009 CKD_EPI creatinine equation. eGFR Non-Black/ >90 >=60 mL/min/BSA 2:07 PM SENIOR FINANCIAL REPORTING ACCOUNTANT DTL Comment: ----ADDITIONAL INFORMATION---- Estimated GFR calculated using the 2009 CKD_EPI creatinine equation. Calcium, Total, P 9.0 8.6 - 10.0 mg/dL 08/27/2021 2:07 PM SENIOR FINANCIAL REPORTING ACCOUNTANT DTL Glucose, P 129 70 - 140 mg/dL 08/27/2021 2:07 PM SENIOR FINANCIAL REPORTING ACCOUNTANT D TL Specimen Anatomical Collection Method Collection Time Receive d Time (Source) Location / / Volume Laterality Blood (Blood, 08/27/2021 1:06 PM 08/27/20 21 1:26 Venous) SENIOR FINANCIAL REPORTING ACCOUNTANT PM SENIOR FINANCIAL REPORTING ACCOUNTANT Vladislav Zarco M.D. LAB BLOOD ADD-ON Performing Organization Address City/State/ZIP Code Phon e Number [facility] - 200 [place], [place] [address] [facility] [place] [address] [facility] [address] [facility] (ABNORMAL) CBC with Differential, Blood (08/27/2021 1:06 PM SENIOR FINANCIAL REPORTING ACCOUNTANT) [facility] Method Time Signature Hemoglobin 12.3 (L) 13.2 - 08/27/2021 DTL 16.6 g/dL 1:35 PM SENIOR FINANCIAL REPORTING ACCOUNTANT Hematocrit 37.2 (L) 38.3 - 08/27/2021 DTL 48.6 % 1:35 PM SENIOR FINANCIAL REPORTING ACCOUNTANT Erythrocytes 4.47 4.35 - 08/27/2021 DTL 5.65 1:35 PM SENIOR FINANCIAL REPORTING ACCOUNTANT x10(12)/L MCV 83.2 78.2 - 08/27/2021 DTL 97.9 fL 1:35 PM SENIOR FINANCIAL REPORTING ACCOUNTANT RBC Distrib Width 13.2 11.8 - 08/27/2021 DTL 14.5 % 1:35 PM SENIOR FINANCIAL REPORTING ACCOUNTANT Platelet Count 165 135 - 317 08/27/2021 DTL x10(9)/L 1:35 PM SENIOR FINANCIAL REPORTING ACCOUNTANT Leukocytes 5.0 3.4 - 9.6 08/27/2021 DTL x10(9)/L 1:35 PM SENIOR FINANCIAL REPORTING ACCOUNTANT Neutrophils 3.64 1.56 - 08/27/2021 DTL 6.45 1:35 PM SENIOR FINANCIAL REPORTING ACCOUNTANT x10(9)/L Lymphocytes 0.59 (L) 0.95 - 08/27/2021 DTL 3.07 1:35 PM SENIOR FINANCIAL REPORTING ACCOUNTANT x10(9)/L Monocytes 0.57 0.26 - 08/27/2021 DTL 0.81 1:35 PM SENIOR FINANCIAL REPORTING ACCOUNTANT x10(9)/L Eosinophils 0.13 0.03 - 08/27/2021 DTL 0.48 1:35 PM SENIOR FINANCIAL REPORTING ACCOUNTANT x10(9)/L Basophils <0.03 0.01 - 08/27/2021 DTL 0.08 1:35 PM SENIOR FINANCIAL REPORTING ACCOUNTANT x10(9)/L Specimen Anatomical Collection Method Collection Time Receive d Time (Source) Location / / Volume Laterality Blood (Blood, 08/27/2021 1:06 PM 08/27/20 21 1:25 Venous) SENIOR FINANCIAL REPORTING ACCOUNTANT PM SENIOR FINANCIAL REPORTING ACCOUNTANT Vladislav Zarco M.D. LAB BLOOD ADD-ON Performing Organization Address City/State/ZIP Code Phon e Number [facility] - [address] [place], [place] [address] [facility] [place] [place] [address] [facility] [address] documented in this encounter Visit Diagnoses Diagnosis Secondary Malignant Neoplasm Liver (HCC) - Primary Malignant Neoplasm Of Pancreas (HCC) Bacteremia documented in this encounter Care Teams Electric Power Line Examiner Relationship Specialty Start Date End Date Elsewhere, Pcp PCP - General Family Medicine 08/12/20 documented as of this encounter
--- OUTSIDE RECORDS SUMMARY | 2022-06-18 16:08 | XMS_ITS | Encounter Summary ---
:1965 Author Organization [facility] Address [address] [place] [address] Care Team Providers Name Role Phone Elsewhere, Pcp Primary Care Provider Unavailable Encounter Details Date Type Department Care Team Description 08/27/2021 Orders Only Department of Oncology Deborah Murray Secon dary Malignant Neoplasm Liver (HCC) (Primary Dx); in [facility] elke Valera Malignant Neoplasm Of Pancreas (HCC) [address] [facility] [address] [place] [phone] Social History Tobacco Use Types Packs/Day Years [...] How often do you attend alevism or holiness services? Never 01/15/2021 Do you [...] Date Recorded Male 08/18/2021 2:55 PM RN ACUTE documented as of this encounter Plan of Treatment Upcoming Encounters Date Type Specialty Care Team Description 06/22/2022 Lab Laboratory Medicine Maria Del Rosario Gomez AP RN, C.N.P., M.S. [address] [place] [phone] (Mj godoy) 06/22/2022 Infusion Oncology Maria Del Rosario Gomez APRN, C.N .P., M.S. [address] [place] [phone] (Mj godoy) 06/29/2022 Lab Laboratory Medicine Maria Del Rosario Gomez AP RN, C.N.P., M.S. [address] [place] [phone] (Mj godoy) 06/29/2022 Infusion Oncology Maria Del Rosario Gomez APRN, C.N .P., M.S. [address] [place] [phone] (Mj godoy) documented as of this encounter Visit Diagnoses Diagnosis Secondary Malignant Neoplasm Liver (HCC) - Primary Malignant Neoplasm Of Pancreas (HCC) documented in this encounter Care Teams Director Translational Relationship Specialty Start Date End Date Elsewhere, Pcp PCP - General Family Medicine 08/12/20 documented as of this encounter
--- OUTSIDE RECORDS SUMMARY | 2022-06-18 16:08 | XMS_ITS | Encounter Summary ---
:1965 Author Organization [facility] Address [address] [place] [address] Care Team Providers Name Role Phone Elsewhere, Pcp Primary Care Provider Unavailable Encounter Details Date Type Department Care Team Description 08/27/2021 Lab Department of Infusion Vladislav Zarco Malignant Neoplasm Of Pancreas (HCC) (Primary Dx); [place] [address] [address] [facility] [address] [place] [phone] (Wo rk) Social History Tobacco Use Types [...] How often do you attend jewish or zoroastrianism services? 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 [address] [place] [phone] (Wo rk) 06/22/2022 Infusion Oncology Maria Del Rosario Gomez APRN, C.N .P., M.S. [address] [place] [phone] (Wo rk) 06/29/2022 Lab Laboratory Medicine Maria Del Rosario Gomez AP RN, C.N.P., M.S. [address] [place] [phone] (Wo rk) 06/29/2022 Infusion Oncology Maria Del Rosario Gomez APRN, Remy.N .P., M.S. [address] [place] [phone] (Wo rk) documented as of this encounter Procedures Procedure Name Priority Date/Time Associated Diagnosis Comme nts [facility] Routine 08/27/2021 9:02 AM Malignant Neoplasm Re sults for this ORDER, B WHEEL ALIGNMENT TECHNICIAN Of Pancreas (HCC) procedure are in the results section. documented in this encounter Results Miscellaneous Research, B (08/27/2021 9:02 AM WHEEL ALIGNMENT TECHNICIAN) athologist Signature Number of 3 08/27/2021 [facility] Specimens 9:02 AM WHEEL ALIGNMENT TECHNICIAN Specimen Anatomical Collection Method Collection Time Receive d Time (Source) Location / / Volume Laterality Varies (Blood, 08/27/2021 9:02 AM 021 9:02 Venous) WHEEL ALIGNMENT TECHNICIAN AM WHEEL ALIGNMENT TECHNICIAN Vladislav Zarco M.D. LAB RESEARCH NO RESULT VERENICE MCFADDEN Performing Organization Address City/State/ZIP Code Phon e Number [facility] - [address] [place] [address] [address] [place] [address] [facility] [address] documented in this encounter Visit Diagnoses Diagnosis Malignant Neoplasm Of Pancreas (HCC) - P rimary Bacteremia documented in this encounter Administered Medications Inactive Administered Medications - up to 3 most recent administrations Medication Order MAR Action Action Date Dose Rate Site heparin flush 500 Units Given 08/27/2021 9:05 AM WHEEL ALIGNMENT TECHNICIAN 500 Units 500 Units, intra-catheter, As needed, line care, Starting on Mon08/27/21 at 0850, When no infusion to maintain patency: For IVAD accessed, not in use, and/or prior to hospital discharge, flush every 7 days after 0.9% preservative-free NaCL flush. For IVAD NOT accessed or used, flush every 4 weeks after 0.9% preservative-free NaCL flush. sodium chloride 0.9 % injection 10 mL Given 08/27/2021 9:05 AM WHEEL ALIGNMENT TECHNICIAN 10 mL 10 mL, intra-catheter, As needed, line care, Starting on Mon08/27/21 at 0850, When IVAD Accessed and in Use: Flush prior to and following infusion, between multiple consecutive infusions, and prior to blood sampling. sodium chloride 0.9 % injection 20 mL Given 08/27/2021 9:05 AM WHEEL ALIGNMENT TECHNICIAN 20 mL 20 mL, intra-catheter, As needed, line care, Starting on Mon08/27/21 at 0850, When IVAD Accessed and in Use: Flush post blood transfusion or post blood sampling. documented in this encounter Care Teams Reed Fixer Relationship Specialty Start Date End Date Elsewhere, Pcp PCP - General Family Medicine 08/12/20 documented as of this encounter
--- OUTSIDE RECORDS SUMMARY | 2022-06-18 16:08 | XMS_ITS | Encounter Summary ---
:1965 Author Organization [facility] Address [address] [place] [address] Care Team Providers Name Role Phone Elsewhere, Pcp Primary Care Provider Unavailable Encounter Details Date Type Department Care Team Description 09/01/2021 Orders Only Department of Oncology in [place], [place] [address] [place] [address] Social History Tobacco Use Types Packs/Day [...] How often do you attend uatsdin or tenriism services? 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 [address] [place] [phone] (Mj godoy) 06/22/2022 Infusion Oncology Maria Del Rosario Gomez APRN, C.N .P., M.S. [address] [place] [phone] (Mj godoy) 06/29/2022 Lab Laboratory Medicine Maria Del Rosario Gomez AP RN, C.N.P., M.S. [address] [place] [phone] (Mj godoy) 06/29/2022 Infusion Oncology Maria Del Rosario Gomez APRN, C.N .P., M.S. [address] [place] [phone] (Mj godoy) documented as of this encounter Visit Diagnoses Not on filedocumented in this encounter Care Teams Pack Out Operator Relationship Specialty Start Date End Date Elsewhere, Pcp PCP - General Family Medicine 08/12/20 documented as of this encounter
--- OUTSIDE RECORDS SUMMARY | 2022-06-18 16:08 | XMS_ITS | Encounter Summary ---
:1965 Author Organization [facility] Address [address] [place] [address] Care Team Providers Name Role Phone Elsewhere, Pcp Primary Care Provider Unavailable Reason for Visit Reason Comments Intake Assessment Encounter Details Date Type Department Care Team Description 08/30/2021 Clinical Communication Department of Baldemar Zarco [place] Oncology in Vladislav Pereira M.D. [place], [facility] [address] [place], [place] [address] [place] [phone] [place], [place] [phone] (Work) [phone] Social History Tobacco Use Types Packs/Day Years [...] How often do you attend voodoo or restorationist services? 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 LE VALVE OPERATOR documented in this encounter Plan of Treatment Upcoming Encounters Date Type Specialty Care Team Description 06/22/2022 Lab Laboratory Medicine Maria Del Rosario Gomez AP RN, C.N.P., M.S. [address] [place] [phone] (Mj godoy) 06/22/2022 Infusion Oncology Maria Del Rosario Gomez APRN, C.N .P., M.S. [address] [place] [address] [phone] (Mj godoy) 06/29/2022 Lab Laboratory Medicine Maria Del Rosario Gomez AP RN, C.N.P., M.S. [address] [place] [address] [phone] (Mj godoy) 06/29/2022 Infusion Oncology Maria Del Rosario Gomez APRN, C.N .P., M.S. [address] [place] [phone] (Mj godoy) documented as of this encounter Visit Diagnoses Not on filedocumented in this encounter Care Teams Bailing Machine Operator Relationship Specialty Start Date End Date Elsewhere, Pcp PCP - General Family Medicine 08/12/20 documented as of this encounter
--- OUTSIDE RECORDS SUMMARY | 2022-06-18 16:08 | XMS_ITS | Encounter Summary ---
:1965 Author Organization [facility] Address [address] [place] [address] Care Team Providers Name Role Phone Elsewhere, Pcp Primary Care Provider Unavailable Reason for Visit Episode Based Medications (Routine) - Closed Specialty Diagnoses / Procedures Referred By Contact Refer red To Contact Diagnoses Malignant Neoplasm Of Pancreas (HCC) Secondary Malignant Neoplasm Liver (HCC) Deborah Murray M.B.B.S. Rst Onc Rogo Procedures IA ONDANSETRON HCL INJECTION IA DEXAMETHASONE SODIUM PHOS IA LEUCOVORIN CALCIUM INJECTION IA PALONOSETRON HCL IA INJ IRINOTECAN LIPOSOME 1 MG IA FLUOROURACIL INJECTION [address] [facility] [address] [place] [phone] Referral ID Status Reason Start Date Expiration Date Visits Requ ested Visits Authorized [id number] Closed 08/27/2021 08/27/2022 18 18 Encounter Details Date Type Department Care Team Description 09/08/2021 Lab Department of Infusion Vladislav Zarco Secondary Malignant Neoplasm Liver (HCC) (Primary Dx); Therapy in Randall Perdomo M.D. Malignant Neoplasm Of Pancreas (HCC); [place] [address] [facility] Bacteremia [address] [place] [phone] (Wo rk) Social History Tobacco Use Types [...] How often do you attend presybeterian or confucianism services? Never 01/15/2021 Do you [...] at Date Recorded Male 08/18/2021 2:55 PM MILITARY PERSONNEL SPECIALIST documented as of this encounter Plan of Treatment Upcoming Encounters Date Type Specialty Care Team Description 06/22/2022 Lab Laboratory Medicine Maria Del Rosario Gomez AP RN, C.N.P., M.S. [address] [place] [address] [phone] (Mj rk) 06/22/2022 Infusion Oncology Maria Del Rosario Gomez APRN, C.N .P., M.S. [address] [place] [address] [phone] (Wo rk) 06/29/2022 Lab Laboratory Medicine Maria Del Rosario Gomez AP RN, C.N.P., M.S. [address] [place] [address] [phone] (Mj rk) 06/29/2022 Infusion Oncology Maria Del Rosario Gomez APRN, C.N .P., M.S. [address] [place] [address] [phone] (Mj rk) documented as of this encounter Procedures Procedure Name Priority Date/Time Associated Diagnosis Comme nts CBC WITH Routine 09/08/2021 5:03 PM Secondary Malignant Re sults for this DIFFERENTIAL, B MILITARY PERSONNEL SPECIALIST Neoplasm Liver ( HCC) procedure are in Malignant Neoplasm the resul ts Of Pancreas (HCC) section. documented in this encounter Results (ABNORMAL) CBC with Differential, Blood (09/08/2021 5:03 PM MILITARY PERSONNEL SPECIALIST) [facility] gist Method Time Signature Hemoglobin 11.8 (L) 13.2 - 09/08/2021 DTL 16.6 g/dL 5:50 PM MILITARY PERSONNEL SPECIALIST Hematocrit 35.9 (L) 38.3 - 09/08/2021 DTL 48.6 % 5:50 PM MILITARY PERSONNEL SPECIALIST Erythrocytes 4.37 4.35 - 09/08/2021 DTL 5.65 5:50 PM MILITARY PERSONNEL SPECIALIST x10(12)/L MCV 82.2 78.2 - 09/08/2021 DTL 97.9 fL 5:50 PM MILITARY PERSONNEL SPECIALIST RBC Distrib Width 12.6 11.8 - 09/08/2021 DTL 14.5 % 5:50 PM MILITARY PERSONNEL SPECIALIST Platelet Count 182 135 - 317 09/08/2021 DTL x10(9)/L 5:50 PM MILITARY PERSONNEL SPECIALIST Leukocytes 4.3 3.4 - 9.6 09/08/2021 DTL x10(9)/L 5:50 PM MILITARY PERSONNEL SPECIALIST Neutrophils 3.21 1.56 - 09/08/2021 DTL 6.45 5:50 PM MILITARY PERSONNEL SPECIALIST x10(9)/L Lymphocytes 0.71 (L) 0.95 - 09/08/2021 DTL 3.07 5:50 PM MILITARY PERSONNEL SPECIALIST x10(9)/L Monocytes 0.17 (L) 0.26 - 09/08/2021 DTL 0.81 5:50 PM MILITARY PERSONNEL SPECIALIST x10(9)/L Eosinophils 0.17 0.03 - 09/08/2021 DTL 0.48 5:50 PM MILITARY PERSONNEL SPECIALIST x10(9)/L Basophils <0.03 0.01 - 09/08/2021 DTL 0.08 5:50 PM MILITARY PERSONNEL SPECIALIST x10(9)/L Specimen Anatomical Collection Method Collection Time Receive d Time (Source) Location / / Volume Laterality Blood (Blood, 09/08/2021 5:03 PM 09/08/20 5:42 Venous) MILITARY PERSONNEL SPECIALIST PM MILITARY PERSONNEL SPECIALIST Vladislav Zarco M.D. LAB BLOOD ADD-ON Performing Organization Address City/State/ZIP Code Phon e Number [facility] - [address] [place], [place] [address] [facility] [place] [address] [facility] [place] [address] documented in this encounter Visit Diagnoses Diagnosis Secondary Malignant Neoplasm Liver (HCC) - Primary Malignant Neoplasm Of Pancreas (HCC) Bacteremia documented in this encounter Administered Medications Inactive Administered Medications - up to 3 most recent administrations Medication Order MAR Action Action Date Dose Rate Site heparin flush 500 Units Given 09/08/2021 5:07 PM MILITARY PERSONNEL SPECIALIST 500 Units 500 Units, intra-catheter, As needed, line care, Starting on Mon09/08/21 at 1652, When no infusion to maintain patency: For IVAD accessed, not in use, and/or prior to hospital discharge, flush every 7 days after 0.9% preservative-free NaCL flush. For IVAD NOT accessed or used, flush every 4 weeks after 0.9% preservative-free NaCL flush. sodium chloride 0.9 % injection 20 mL Given 09/08/2021 5:07 PM MILITARY PERSONNEL SPECIALIST 20 mL 20 mL, intra-catheter, As needed, line care, Starting on Mon09/08/21 at 1652, When IVAD Accessed and in Use: Flush post blood transfusion or post blood sampling. Given 09/08/2021 5:06 PM MILITARY PERSONNEL SPECIALIST 20 mL documented in this encounter Care Teams Horticultural Farmworker Relationship Specialty Start Date End Date Elsewhere, Pcp PCP - General Family Medicine 08/12/20 documented as of this encounter
--- OUTSIDE RECORDS SUMMARY | 2022-06-18 16:08 | XMS_ITS | Encounter Summary ---
:1965 Author Organization [facility] Address [address] [place] [address] Care Team Providers Name Role Phone Elsewhere, Pcp Primary Care Provider Unavailable Encounter Details Date Type Department Care Team Description 08/27/2021 Education Department of Oncology Vladislav Stein M.D. [address] [place] [phone] Malignant Neoplasm Of in [facility] Emma Tom, R.NRiaz Pancreas (HCC) [address] [place] [phone] Social History Tobacco Use Types Packs/Day Years [...] How often do you attend buddhist or restorationism services? Never 01/15/2021 Do you [...] at Date Recorded Male 08/18/2021 2:55 PM PRACTICE PROFESSIONAL documented as of this encounter Plan of Treatment Upcoming Encounters Date Type Specialty Care Team Description 06/22/2022 Lab Laboratory Medicine Maria Del Rosario Gomez AP RN, C.N.P., M.S. [address] [place] [phone] (Mj godoy) 06/22/2022 Infusion Oncology Maria Del Rosario Gomez APRN, C.N .P., M.S. [address] [place] [address] [phone] (Mj godoy) 06/29/2022 Lab Laboratory Medicine Maria Del Rosario Gomez AP RN, C.N.P., M.S. [address] [place] [address] [phone] (Mj godoy) 06/29/2022 Infusion Oncology Maria Del Rosario Gomez APRN, C.N .P., M.S. [address] [place] [address] [phone] (Mj godoy) documented as of this encounter Visit Diagnoses Diagnosis Malignant Neoplasm Of Pancreas (HCC) documented in this encounter Care Teams Associate Curator Relationship Specialty Start Date End Date Elsewhere, Pcp PCP - General Family Medicine 08/12/20 documented as of this encounter
--- OUTSIDE RECORDS SUMMARY | 2022-06-18 16:09 | XMS_ITS | Encounter Summary ---
:1965 Author Organization [facility] Address [address] [place] [address] Care Team Providers Name Role Phone Elsewhere, Pcp Primary Care Provider Unavailable Reason for Visit Reason Comments Med Refill Encounter Details Date Type Department Care Team Description 08/17/2021 Refill Department of Palliative Care [place] T, GUERO, Med Refill in [facility] potato chip maker C.N.P., M.S.N. [address] [facility] [address] [place] [phone] [place] [address] [phone] (Wo rk) Social History Tobacco Use Types [...] How often do you attend confucianist or pentecostal services? Never 01/15/2021 Do you [...] Date Recorded Male 08/18/2021 2:55 PM FLOOR AND WALL APPLIER LIQUID documented as of this encounter Miscellaneous Notes Telephone Encounter - Kimberly Malave R.N. - 08/17/2021 10:58 AM FLOOR AND WALL APPLIER LIQUID Prescription Refill Request Current Prescription Regimen: Gabapentin 300 mg; Take 2 capsules at bedtime Last strength/amount/date filled: 06/22 with 1 refill [place] COORDINATOR [employer] reviewed Prescription/amount provided today: Gabapentin 300 mg; Quantity #60 w 1 refill Prescription will be e-Prescribed to the following pharmacy: [facility] [place] Last appointment was in person office visit on 08/12 Next palliative appointment is in person office visit Ordered - to be scheduled Prescription was authorized by Kareen Wood DNP R AND WALL APPLIER LIQUID documented in this encounter Plan of Treatment Upcoming Encounters Date Type Specialty Care Team Description 06/22/2022 Lab Laboratory Medicine Maria Del Rosario Gomez AP RN, C.N.P., M.S. [address] [place] [address] [phone] (Mj godoy) 06/22/2022 Infusion Oncology Maria Del Rosario Gomez APRN, C.N .P., M.S. [address] [place] [address] [phone] (Mj godoy) 06/29/2022 Lab Laboratory Medicine Maria Del Rosario Gomez AP RN, C.N.P., M.S. [address] [place] [address] [phone] (Mj godoy) 06/29/2022 Infusion Oncology Maria Del Rosario Gomez APRN, C.N .P., M.S. [address] [place] [address] [phone] (Mj godoy) documented as of this encounter Visit Diagnoses Not on filedocumented in this encounter Care Teams Home Mortgage Disclosure Act Specialist Relationship Specialty Start Date End Date Elsewhere, Pcp PCP - General Family Medicine 08/12/20 documented as of this encounter
--- OUTSIDE RECORDS SUMMARY | 2022-06-18 16:09 | XMS_ITS | Encounter Summary ---
:1965 Author Organization [facility] Address [address] [place] [address] Care Team Providers Name Role Phone Elsewhere, Pcp Primary Care Provider Unavailable Reason for Visit Reason Comments Med Management Outpatient (Routine) - Closed Specialty Diagnoses / Procedures Referred By Contact Refer red To Contact Pharmacy Diagnoses Malignant Neoplasm [facility] Pan[facility]) [facility] (Hem/Onc) e[facility]u [facility] [address] [place] [phone] Referral ID Status Reason Start Date Expiration Date Visits Requ ested Visits Authorized [id number] Closed 08/26/2021 08/26/2022 1 1 Encounter Details Date Type Department Care Team Description 08/26/2021 Internal E-Consult Department of Randall Zarco M.D. [address] [place] [phone] [facility] [address] [place] [phone] Of Pancreas (HCC) [place], [place] [address] [place] [address] [phone] Social History Tobacco Use Types Packs/Day Years [...] How often do you attend orthodox or mormon services? Never 01/15/2021 Do you [...] at Date Recorded Male 08/18/2021 2:55 PM DIELECTRIC PRESS OPERATOR documented as of this encounter Consult Notes Devin Ervin Jr., Pharm.D., R.Ph. - 08/26/2021 1:30 PM CST SUBJECTIVE Referring Provider: Vladislav Zarco M.D. Reason for Visit Research eConsult - drug interaction review for eligibility to enroll onto clinical trial CRDF-001 with onvansertib plus nanoliposomal irinotecan, leucovorin, fluorouracil. History of Present Illness Mr. Campbell is a 56 y.o. male with locally advanced pancreatic cancer. I was asked to review Mr. Campbell's medications for eligibility to enroll onto clinical trial CRDF-001, A Phase 2 Study of Onvansertib in Combination with Nanoliposomal Irinotecan, Leucovorin, and Fluorouracil for Second-Line Treatment of Patients with Metastatic Pancreatic Ductal Adenocarcinoma . I have reviewed his medications as listed in the most current outpatient medication list. OBJECTIVE Allergies Allergies Allergen Reactions ??? Compazine [Prochlorperazine] GI intolerance ??? Ranitidine Hcl Diarrhea Current Medications Current Outpatient Medications Medication Sig Dispense Refill ??? acetaminophen (TYLENOL) 500 mg tablet Take 2 tablets (1,000 mg total) by mouth 3 (three) times aday. ??? gabapentin (NEURONTIN) 300 mg capsule Take 2 capsules (600 mg total) by mouth at bedtime. 60 capsule 1 ??? HYDROmorphone (DILAUDID) 4 mg tablet Take 0.5-1 tablets (2-4 mg total) by mouth every 6 (six) hours as needed for pain Indication: Chronic Pain/Nonacute Pain. 60 tablet 0 ??? lidocaine (LMX) 4 % cream Apply 1 application topically 3 (three) times a day as needed for pain. May try over the counter lidocaine cream for back pain 30 g 0 ??? owziob-wshvbbcd-hnlixnp (Creon) 24,000-76,000-120,[address] capsule Take 2 capsules by mouth as directed. 2 capsules with meals and 1-2 capsules with snacks. 240 capsule 3 ??? LORazepam (Ativan) 0.5 mg tablet Take 1 tablet (0.5 mg total) by mouth 2 (two) times a day as needed for anxiety. 60 tablet 0 ??? medical cannabis capsule Take by mouth. THC component: CBD component: ??? ondansetron (ZOFRAN) 8 mg tablet Take 1 tablet (8 mg total) by mouth every 8 (eight) hours as needed for nausea or vomiting. 30 tablet 3 ??? pantoprazole (PROTONIX) 40 mg EC tablet Take 1 tablet (40 mg total) by mouth every morning before breakfast. 90 tablet 3 ??? polyethylene glycol (MIRALAX) 17 gram powder [...] increase to 100 mg daily at bedtime. ) 30 tablet 0 No current facility-administered medications for this visit. Labs: Lab Results Component Value Date NA 144 08/22/2021 CL 108 (H) 08/22/2021 CREATININE 0.77 08/22/2021 BUN 14 08/22/2021 ANIONGAP 13 08/22/2021 GLUCOSE 89 08/22/2021 GLUCOSE 89 08/22/2021 CALCIUM 9.1 08/22/2021 Lab Results Component Value Date WBC 5.5 08/22/2021 RBC 4.66 08/22/2021 HGB 12.7 (L) 08/22/2021 HCT 38.9 08/22/2021 PLT 171 08/22/2021 Lab Results Component Value Date ALT 25 08/22/2021 ALT 25 08/22/2021 AST 25 08/22/2021 ALKPHOS 140 (H) 08/22/2021 BILITOT 0.4 08/22/2021 ASSESSMENT / PLAN Research eConsult - drug interaction review for eligibility to enroll onto clinical trial CRDF-001 with onvansertib plus nanoliposomal irinotecan, leucovorin, fluorouracil. RECOMMENDATIONS TO BE REVIEWED WITH THE PROVIDER PRIOR TO THE STUDY START DATE: 1. Medications that must/should be discontinued: Mr. Campbell is currently taking ondansetron. This protocol states that planned concomitant use of medications known to prolong the QT/QTc interval is an exclusion criterion. Per [employer] QT drug database, ondansetron is known to cause QT prolongation.I did note that ondansetron is built into the treatment plan as a premedication which means that it has been approved for use by the study PI, and it's my understanding that QT prolongation with ondansetron is known to occur with higher IV doses (32 mg). Just to ensure that there are no problems or contraindications, I recommend that you contact the medical monitor to discuss if ondansetron must be discontinued while on this clinical trial or if ondansetron can continue with monitoring. Above recommendations were communicated to the referring provider via an electronically routed chart. Félix Ervin Jr., Pharm.D., R.Ph. Research Pharmacist ECTRIC PRESS OPERATOR documented in this encounter Plan of Treatment Upcoming Encounters Date Type Specialty Care Team Description 06/22/2022 Lab Laboratory Medicine Maria Del Rosario Gomez AP RN, C.N.P., M.S. [address] [place] [address] [phone] (Wo rk) 06/22/2022 Infusion Oncology DonovanMaria Del Rosario pierre APRN, C.N .P., M.S. [address] [place] [address] [phone] (Wo rk) 06/29/2022 Lab Laboratory Medicine Maria Del Rosario Gomez AP RN, C.N.P., M.S. [address] [place] [address] [phone] (Wo rk) 06/29/2022 Infusion Oncology DonovanMaria Del Rosario pierre APRN, C.N .P., M.S. [address] [place] [address] [phone] (Wo rk) documented as of this encounter Visit Diagnoses Diagnosis Malignant Neoplasm Of Pancreas (HCC) documented in this encounter Care Teams Chair Spring Assembler Relationship Specialty Start Date End Date Elsewhere, Pcp PCP - General Family Medicine 08/12/20 documented as of this encounter
--- OUTSIDE RECORDS SUMMARY | 2022-06-18 16:09 | XMS_ITS | Encounter Summary ---
:1965 Author Organization [facility] Address [address] [place] [address] Care Team Providers Name Role Phone Elsewhere, Pcp Primary Care Provider Unavailable Reason for Visit Outpatient (Routine) - Closed Specialty Diagnoses / Procedures Referred By Contact Refer red To Contact Oncology Vladislav Zarco M.D. [facility] [address] [place] [phone] Referral ID Status Reason Start Date Expiration Date Visits Requ ested Visits Authorized [id number] Closed 08/13/2021 08/13/2022 1 1 Encounter Details Date Type Department Care Team Description 08/19/2021 Virtual Visit Department of Carolee, Malignant Siva plasm Of Pancreas (HCC); Oncology in Vladislav Pereira M.D. Secondary Malignant Neoplasm Liver (HCC) [place], [place] [address] [facility] [address] [place] [phone] Social History Tobacco Use Types Packs/Day Years [...] How often do you attend voodoo or hinduism services? Never 01/15/2021 Do you [...] at Date Recorded Male 08/18/2021 2:55 PM AIRCRAFT DE ICER INSTALLER documented as of this encounter Progress Notes Vladislav Zarco M.D. - 08/19/2021 8:00 AM CST SUBJECTIVE PRIMARY CARE PHYSICIAN ELSEWHERE, PCP, PALakishaC Patient Care Team: Adrian Mills M.D. as External Primary Care Physician (Family Medicine) LOCAL ONCOLOGIST No care software team leader to display [facility] ONCOLOGIST Deborah Murray M.B.B.S. Maria Del Rosario Gomez APRN, C.N.P., M.S. CHIEF COMPLAINT / REASON FOR VISIT Adam Campbell is a 56 y.o. male who by phone with results of this PET MRI. He said he got pretty claustrophobic during the test HISTORY OF PRESENT ILLNESS Oncology History Oncology [...] (01/25/2021 - 03/02/2021) Site: Pancreas Technique: 3D BATTERY VENT PLUG INSERTER Goal: Curative Planned Treatment Start Date: 01/25/2021 01/25/2021 - 03/01/2021 Chemotherapy Gemcitabine ( with Radiation ) Start Date: 01/25/2021 08/13/2021 Genetic Testing and Tumor Genotyping [facility] pancreas panel negative General: Associated symptoms: arthralgias, fatigue, myalgias and weakness The following portions of the patient's history were reviewed and updated as appropriate: allergies,current medications, medical history and problem list. No data recorded REVIEW OF SYSTEMS Constitutional: Positive for fatigue. Respiratory: Positive for dyspnea. Musculoskeletal: Positive for arthralgias, back pain, pain or stiffness in the joints and muscle pain/stiffness. Neurological: Positive for weakness in arms or legs. Psychiatric/Behavioral: Positive for little interest or pleasure in doing things over past two weeks, feeling down, depressed, or hopeless over past two weeks, not being able to stop or control worrying over past two weeks and feeling nervous, anxious, or on edge in past two weeks. The following systems were negative: Skin, Eyes, ENT, CV, GI, , Hematologic OBJECTIVE There were no vitals taken for this visit. PHYSICAL EXAM ECOG performance score: 0 - asymptomatic Physical Exam No exam was performed as this was a phone visit LABORATORY DATA Lab data reviewed. RADIOLOGICAL DATA Radiology data reviewed. ASSESSMENT / PLAN #1 Metastatic pancreatic cancer The PET MRI is not officially read yet but certainly the lesion in the right side of the liver lights up very brightly. There also may be some uptake in the left side of the liver and also in the pancreatic bed. Official read may obviously find these or other findings. I spoke with the patient about options at this point we discussed FOLFIRI we also have clinical trial with Naliri 5 FU and to study Medicine. The patient is interested in the study after discussing options. This would require 1st biopsy a spoke with Dr. Chris of Radiology about an MRI guided biopsy. This potentially could be done next Monday and is done under anesthesia. PATIENT EDUCATION Ready to learn, no apparent learning barriers were identified; learning preferences include listening. Explained diagnosis and treatment plan; patient expressed understanding of the content. ADMINISTRATIVE BILLING I personally spent 25 minutes in care of the patient today. Time includes both non face to face and face to face patient care. RAFT DE ICER INSTALLER documented in this encounter Plan of Treatment Upcoming Encounters Date Type Specialty Care Team Description 06/22/2022 Lab Laboratory Medicine Maria Del Rosario Gomez AP RN, C.N.P., M.S. [address] [place] [phone] (Mj godoy) 06/22/2022 Infusion Oncology Maria Del Rosario Gomez APRN, C.N .P., M.S. [address] [place] [address] [phone] (Mj godoy) 06/29/2022 Lab Laboratory Medicine Maria Del Rosario Gomez AP RN, C.N.P., M.S. [address] [place] [address] [phone] (Mj godoy) 06/29/2022 Infusion Oncology Maria Del Rosario Gomez APRN, C.N .P., M.S. [address] [place] [address] [phone] (Mj godoy) documented as of this encounter Visit Diagnoses Diagnosis Malignant Neoplasm Of Pancreas (HCC) Secondary Malignant Neoplasm Liver (HCC) documented in this encounter Care Teams Metal And Plastic Heater Relationship Specialty Start Date End Date Elsewhere, Pcp PCP - General Family Medicine 08/12/20 documented as of this encounter
--- OUTSIDE RECORDS SUMMARY | 2022-06-18 16:09 | XMS_ITS | Encounter Summary ---
:1965 Author Organization [facility] Address [address] [place] [address] Care Team Providers Name Role Phone Elsewhere, Pcp Primary Care Provider Unavailable Encounter Details Date Type Department Care Team Description 08/23/2021 Clinical Communication Department of Chris Conklin Oncology in [address], [place] [address] [place] [phone] [place], [place] [phone] (Work) [phone] Social History Tobacco Use Types Packs/Day Years [...] How often do you attend presybeterian or quaker services? Never 01/15/2021 Do you belong to [...] at Date Recorded Male 08/18/2021 2:55 PM CYBER INTEL PLANNER documented as of this encounter Plan of Treatment Upcoming Encounters Date Type Specialty Care Team Description 06/22/2022 [facility] [address] [place] [phone] (Wo rk) 06/22/2022 [facility] C.N .P., M.S. [address] [place] [address] [phone] (Wo rk) 06/29/2022 [facility], C.N.P., M.S. [address] [place] [address] [phone] (Mj rk) 06/29/2022 [facility], C.N .P., M.S. [address] [place] [address] [phone] (Mj rk) documented as of this encounter Visit Diagnoses Not on filedocumented in this encounter Care Teams Screw Machine Set Up Operator Relationship Specialty Start Date End Date Elsewhere, Pcp PCP - General Family Medicine 08/12/20 documented as of this encounter
--- OUTSIDE RECORDS SUMMARY | 2022-06-18 16:09 | XMS_ITS | Encounter Summary ---
:1965 Author Organization [facility] Address [address] [place] [address] Care Team Providers Name Role Phone Elsewhere, Pcp Primary Care Provider Unavailable Reason for Referral Outpatient (Routine) - Closed Specialty Diagnoses / Procedures Referred By Contact Refer red To Contact Diagnoses Lesion Liver Trell Chris M.D., [facility] Procedures US Assisted Guidance Ph.D. [address] [place] [address] Referral ID Status Reason Start Date Expiration Date Visits Requ ested Visits Authorized [id number] Closed 08/19/2021 08/19/2022 1 1 ULA MAKER Reason for Visit Auth/Cert Specialty Diagnoses / Procedures Referred By Contact Refer red To Contact Diagnoses Lesion Liver Malignant Neoplasm Of Pancreas (HCC) Procedures MR LIVER BIOPSY WITH IMAGING GUIDANCE MR LIVER BIOPSY WITH IMAGING GUIDANCE HOSP OP Referral ID Status Reason Start Date Expiration Date Visits Requ ested Visits Authorized [id number] 1 1 Encounter Details Date Type Department Care Team Description 08/23/2021 Hospital Encounter Department of Radiology, Sandra Chris, Lesion Liver ej Hernandez M.D., Ph.D. [place], [place] [address] [facility] [address] [place] [phone] Social History Tobacco Use Types Packs/Day Years [...] How often do you attend caodaism or anglican services? Never 01/15/2021 Do you [...] at Date Recorded Male 08/18/2021 2:55 PM FORMULA MAKER documented as of this encounter Medications at Time of Discharge Medication Sig Dispensed Refills Start Date End Date polyethylene glycol Take 1 packet (17 g 0 021 (MIRALAX) 17 gram total) by mouth 2 powder packet (two) times a day. Dissolve each 17 g dose in 240 mLs (8 ounces) of beverage. sennosides-docusate Take 3 tablets by 0 1 sodium (SENOKOT-S) mouth 2 (two) times 8.6-50 mg per tablet a day. acetaminophen (TYLENOL) Take 2 tablets 0 01/02/20 21 10/25/2021 500 mg tablet (1,000 mg total) by mouth 3 (three) times a day. lidocaine (LMX) 4 % Apply 1 application 30 g 0 021 10/25/2021 cream topically 3 (three) times a day as needed for pain. May try over the counter lidocaine cream for back pain xotzta-xjxjpyug-cusbfgn Take 2 capsules by 240 capsule 3 12/09/2021 (Creon) mouth as directed. 2 24,000-76,000-120,000 capsules with meals Unit per DR capsule and 1-2 capsules with snacks. LORazepam (Ativan) 0.5 Take 1 tablet (0.5 60 tablet 0 03/2910/24/2021 mg tablet mg total) by mouth 2 (two) times a day as needed for anxiety. ondansetron (ZOFRAN) 8 Take 1 tablet (8 mg 30 tablet 3 02/202101/06/2022 mg tabletIndications: total) by mouth Malignant Neoplasm Of every 8 (eight) Pancreas (HCC) hours as needed for nausea or vomiting. traZODone (DESYREL) 50 Take 1-2 tablets 30 tablet 0 021 01/06/2022 mg tablet (50-100 mg total) by mouth at bedtime. Take 50 mg daily at bedtime for at least 7 days. If ineffective, may trial increase to 100 mg daily at bedtime. pantoprazole (PROTONIX) Take 1 tablet (40 mg 90 tablet 3 10/02/2021 40 mg EC tablet total) by mouth every morning before breakfast. gabapentin (NEURONTIN) Take 2 capsules (600 60 capsule 1 03/202110/18/2021 300 mg capsule mg total) by mouth at bedtime. HYDROmorphone Take 0.5-1 tablets 60 tablet 0 08/12/202107/2022 (DILAUDID) 4 mg (2-4 mg total) by tabletIndications: mouth every 6 (six) Chronic Pain/Nonacute hours as needed for Pain pain Indication: Chronic Pain/Nonacute Pain. documented as of this encounter Plan of Treatment Upcoming Encounters Date Type Specialty Care Team Description 06/22/2022 Lab Laboratory Medicine Maria Del Rosario Gomez AP RN, C.N.P., M.S. [address] [place] [phone] (Mj godoy) 06/22/2022 Infusion Oncology Maria Del Rosario Gomez APRN, C.N .P., M.S. [address] [place] [phone] (Mj godoy) 06/29/2022 Lab Laboratory Medicine Maria Del Rosario Gomez AP RN, C.N.P., M.S. [address] [place] [phone] (Mj rk) 06/29/2022 Infusion Oncology Patricia Maria Del Rosario L, GUERO C.N .P., M.S. [address] [place], [place] [phone] (jM rk) documented as of this encounter Procedures Procedure Name Priority Date/Time Associated Comments Diagnosis US ASSISTED RAD - Routine 08/23/2021 5:43 Lesion Liver Results for this GUIDANCE (most inpatients PM FORMULA MAKER procedure a re in and all the results outpatients) section. documented in this encounter Results US Assisted Guidance (08/23/2021 5:43 PM FORMULA MAKER) Anatomical Region Laterality Modality Procedural, Ultrasound RST LOS, Ultrasound ARZ LOS, Procedur e N/A Ultrasound FLA LOS Specimen (Source) Anatomical Collection Method Collection Time Re ceived Time Location / / Volume Laterality 08/23/2021 5:12 PM FORMULA MAKER Impressions 08/23/2021 5:16 PM FORMULA MAKER Successful MR guided liver biopsy. Preprocedure: Patient seen, evaluated, a nd history reviewed. Discussed risks, benefits, alternatives for procedure, an d obtained informed consent. Patient understands information and questions an swered. Immediately prior to starting the procedure, in the presence of the as sisting personnel, procedural pause was conducted to verify correct patient iden tity and verification of procedure to be performed, and as applicable, correct si de and site, correct patient position, availability of implants, special equipm ent, or special requirements, and all image and specimen identification data. The roles and responsibilities of care team members, residents, and fellows hiro griffith discussed. Sedation provided by FISHING ROD MECHANIC. NR Narrative 08/23/2021 5:16 PM FORMULA MAKER Summary: ??MR guided liver biopsy Guidance: MR guided Organ: Liver Biopsy gauge: 18-gauge Technique: Patient was brought into the MR anteroom where anesthesia was initiated. Patient was placed on the MR table in a supine feet first position. Patient was brought into the MR suite. R UQ was sterilely draped and prepped. Localizing images were acquired through the liver. Under US/MR guidance, abbocath was placed into the liver with position confirmed with MR imaging. Biopsy needle was placed through the cat heter immediately adjacent to the lesion. Position was confirmed. Biopsy w as acquired the right dome lesion: A. right dome lesion. Samples were sent to research (3) and pathology (2) for analysis. Diamond Bar were removed and gel-f oam injected. Final images demonstrate no evidence of hematoma. Patient was bro ught out of the MR suite and extubated. Patient tired the procedure well with no immediate complications. Procedure Note Trell Chris M.D., Ph.D. - 08/23/20 21 Summary: MR guided liver biopsy Guidance: MR guided Organ: Liver Biopsy gauge: 18-gauge Technique: Patient was brought into the MR anteroom where anesthesia was initiated. Patient was placed on the MR table in a supine feet first position. Patient was brought into the MR suite. R UQ was sterilely draped and prepped. Localizing images were acquired through the liver. Under US/MR guidance, abbocath was placed into the liver with position confirmed with MR imaging. Biopsy needle was placed through the cat heter immediately adjacent to the lesion. Position was confirmed. Biopsy w as acquired the right dome lesion: A. right dome lesion. Samples were sent to research (3) and pathology (2) for analysis. Diamond Bar were removed and gel-f oam injected. Final images demonstrate no evidence of hematoma. Patient was bro ught out of the MR suite and extubated. Patient tired the procedure well with no immediate complications. IMPRESSION: Successful MR guided liver biopsy. Preprocedure: Patient seen, evaluated, a nd history reviewed. Discussed risks, benefits, alternatives for procedure, an d obtained informed consent. Patient understands information and questions an swered. Immediately prior to starting the procedure, in the presence of the as sisting personnel, procedural pause was conducted to verify correct patient iden tity and verification of procedure to be performed, and as applicable, correct si de and site, correct patient position, availability of implants, special equipm ent, or special requirements, and all image and specimen identification data. The roles and responsibilities of care team members, residents, and fellows hiro griffith discussed. Sedation provided by FISHING ROD MECHANIC. NR Trell Chris M.D., Ph.D. IMG US PROCEDURES documented in this encounter Visit Diagnoses Diagnosis Lesion Liver documented in this encounter Care Teams Rn Integrity Relationship Specialty Start Date End Date Elsewhere, Pcp PCP - General Family Medicine 08/12/20 documented as of this encounter
--- OUTSIDE RECORDS SUMMARY | 2022-06-18 16:09 | XMS_ITS | Encounter Summary ---
:1965 Author Organization [facility] Address [address] [place] [address] Care Team Providers Name Role Phone Elsewhere, Pcp Primary Care Provider Unavailable Encounter Details Date Type Department Care Team Description 08/22/2021 Lab Department of Laboratory Trell Chris , Lesion Liver (Primary Dx); Medicine and Pathology, Chanelle, Ph .D. [address] [address] [place] [address] [phone] Social History Tobacco Use Types Packs/Day Years [...] How often do you attend yarsanism or yarsanism services? Never 01/15/2021 Do you [...] at Date Recorded Male 08/18/2021 2:55 PM PROSTHODONTIST documented as of this encounter Plan of Treatment Upcoming Encounters Date Type Specialty Care Team Description 06/22/2022 Lab Laboratory Medicine Maria Del Rosario Gomez AP RN, C.N.P., M.S. [address] [place] [address] [phone] (Wo rk) 06/22/2022 Infusion Oncology Maria Del Rosario Gomez APRN, C.N .P., M.S. [address] [place] [phone] (Wo rk) 06/29/2022 Lab Laboratory Medicine Maria Del Rosario Gomez AP RN, C.N.P., M.S. [address] [place] [address] [phone] (Wo rk) 06/29/2022 Infusion Oncology Maria Del Rosario Gomez APRN, C.N .P., M.S. [address] [place] [phone] (Wo rk) documented as of this encounter Procedures Procedure Name Priority Date/Time Associated Diagnosis Comme nts SARS COV-2 RNA, Routine 08/22/2021 9:28 AM Lesion Liver Result s for this PCR, VARIES PROSTHODONTIST procedure are i n the results section. documented in this encounter Results SARS CoV-2 RNA, PCR, Varies Asymptomatic (08/22/2021 9:28 AM PROSTHODONTIST) [facility] Method Time Signature SARS CoV-2 Swab, 08/22/2021 DTL RNA, PCR, Nasopharynx 1:55 PM PROSTHODONTIST Source SARS CoV-2 Undetected Undetected 08/22/2021 DTL RNA, PCR 1:55 PM PROSTHODONTIST Comment: SARS-CoV-2 RNA absent. This result does [...] Drug Administration an d is used per lithographic printing machinist's instructions. Performance characteristics were verified by [facility] in a manner consistent with CLIA requirements. Visit the CDC website: https://www.cdc.g ov/coronavirus/ for the most recent guidelines on Coron avirus testing. Fact Sheet for Healthcare Providers: https://www.fda.gov/media/131832/downloa d Fact Sheet for Patients: https://www.fda.gov/media/125304/downloa d Specimen Anatomical Collection Method Collection Time Receive d Time (Source) Location / / Volume Laterality Varies 08/22/2021 9:28 AM (Nasopharynx) PROSTHODONTIST 10:32 AM PROSTHODONTIST Trell Chris M.D., Ph.D. LAB MICROBIOLOGY - GENERAL ORDERABLES Performing Organization Address City/State/ZIP Code Phon e Number [facility] - 200 [place], [place] [address] [place] [address] Laboratories-[facility] [address] documented in this encounter Visit Diagnoses Diagnosis Lesion Liver - Primary Bacteremia documented in this encounter Administered Medications Inactive Administered Medications - up to 3 most recent administrations Medication Order MAR Action Action Date Dose Rate Site heparin flush 500 Units Given 08/22/2021 9:37 AM PROSTHODONTIST 500 Units 500 Units, intra-catheter, As needed, line care, Starting on 08/22/21 at 0937, When no infusion to maintain patency: For IVAD accessed, not in use, and/or prior to hospital discharge, flush every 7 days after 0.9% preservative-free NaCL flush. For IVAD NOT accessed or used, flush every 4 weeks after 0.9% preservative-free NaCL flush. sodium chloride 0.9 % injection 10 mL Given 08/22/2021 9:37 AM PROSTHODONTIST 10 mL 10 mL, intra-catheter, As needed, line care, Starting on 08/22/21 at 0937, When IVAD Accessed and in Use: Flush prior to and following infusion, between multiple consecutive infusions, and prior to blood sampling. sodium chloride 0.9 % injection 20 mL Given 08/22/2021 9:37 AM PROSTHODONTIST 20 mL 20 mL, intra-catheter, As needed, line care, Starting on 08/22/21 at 0937, When IVAD Accessed and in Use: Flush post blood transfusion or post blood sampling. documented in this encounter Additional Health Concerns Infection Onset Date Last Indicated Resolved Time COVID19 Pending 08/22/2021 08/22/2021 08/22/2021 1:55 PM PROSTHODONTIST documented as of this encounter Care Teams Wage Hand Relationship Specialty Start Date End Date Elsewhere, Pcp PCP - General Family Medicine 08/12/20 documented as of this encounter
--- OUTSIDE RECORDS SUMMARY | 2022-06-18 16:09 | XMS_ITS | Encounter Summary ---
:1965 Author Organization [facility] Address [address] [place] [address] Care Team Providers Name Role Phone Elsewhere, Pcp Primary Care Provider Unavailable Reason for Visit Outpatient (Routine) - Closed Specialty Diagnoses / Procedures Referred By Contact Refer red To Contact Oncology Vladislav Zarco M.D. [facility] [address] [place] [address] Referral ID Status Reason Start Date Expiration Date Visits Requ ested Visits Authorized [id number] Closed 08/19/2021 08/19/2022 1 1 Encounter Details Date Type Department Care Team Description 08/23/2021 Office Visit Department of Oncology Ruby Zarco Neoplasm Of in [place], Vladislav Pereira M.D. Pancreas (HCC) [place] [address] [facility] (Primary Dx) [address] [place] [phone] Social History Tobacco Use Types Packs/Day Years [...] How often do you attend methodist or yazdanism services? Never 01/15/2021 Do you [...] at Date Recorded Male 08/18/2021 2:55 PM TECHNICAL SOLUTION ARCHITECT documented as of this encounter Last Filed Vital Signs Vital Sign Reading Time Taken Comments Blood Pressure 121/80 08/23/2021 8:34 AM TECHNICAL SOLUTION ARCHITECT Pulse 69 08/23/2021 8:34 AM TECHNICAL SOLUTION ARCHITECT Temperature 35.4 ??C (95.7 ??F) 08/23/2021 8:34 AM TECHNICAL SOLUTION ARCHITECT Respiratory Rate 16 08/23/2021 8:34 AM TECHNICAL SOLUTION ARCHITECT Oxygen Saturation 97% 08/23/2021 8:34 AM TECHNICAL SOLUTION ARCHITECT Inhaled Oxygen Concentration - - Weight 78.2 kg (172 lb 6.4 oz) 08/23/2021 8:34 AM TECHNICAL SOLUTION ARCHITECT Height 179.1 cm (5' 10.51) 08/23/2021 8:34 AM TECHNICAL SOLUTION ARCHITECT Body Mass Index 24.38 08/23/2021 8:34 AM TECHNICAL SOLUTION ARCHITECT documented in this encounter Plan of Treatment Upcoming Encounters Date Type Specialty Care Team Description 06/22/2022 Lab Laboratory Medicine Maria Del Rosario Gomez AP RN, C.N.P., M.S. [address] [place] [phone] (Mj godoy) 06/22/2022 Infusion Oncology Maria Del Rosario Gomez APRN, C.N .P., M.S. [address] [place] [phone] (Mj godoy) 06/29/2022 Lab Laboratory Medicine Maria Del Rosario Gomez AP RN, C.N.P., M.S. [address] [place] [phone] (Mj godoy) 06/29/2022 Infusion Oncology Maria Del Rosario Gomez APRN, C.N .P., M.S. [address] [place], [place] [phone] (Wo rk) documented as of this encounter Visit Diagnoses Diagnosis Malignant Neoplasm Of Pancreas (HCC) - P rimary documented in this encounter Care Teams Pigment Grinder Relationship Specialty Start Date End Date Elsewhere, Pcp PCP - General Family Medicine 08/12/20 documented as of this encounter
--- OUTSIDE RECORDS SUMMARY | 2022-06-18 16:09 | XMS_ITS | Encounter Summary ---
:1965 Author Organization [facility] Address [address] [place] [address] Care Team Providers Name Role Phone Elsewhere, Pcp Primary Care Provider Unavailable Encounter Details Date Type Department Care Team Description 08/23/2021 Lab Department of Laboratory Everette Zarco Malignant Neoplasm Of Medicine and Pathology, R, M.D. Pancreas ([facility]) [address] [place] [phone] [place] [address] [phone] Social History Tobacco Use Types Packs/Day Years [...] How often do you attend buddhism or confucianist services? Never 01/15/2021 Do you belong to [...] at Date Recorded Male 08/18/2021 2:55 PM WATER SUPERVISOR documented as of this encounter Plan of Treatment Upcoming Encounters Date Type Specialty Care Team Description 06/22/2022 Lab Laboratory Medicine Maria Del Rosario Gomez AP RN, C.N.P., M.S. [address] [place] [phone] (Wo rk) 06/22/2022 Infusion Oncology Maria Del Rosario Gomez APRN, C.N .P., M.S. [address] [place] [phone] (Wo rk) 06/29/2022 Lab Laboratory Medicine Maria Del Rosario Gomez AP RN, C.N.P., M.S. [address] [place] [phone] (Wo rk) 06/29/2022 Infusion Oncology Maria Del Rosario Gomez APRN, C.N .P., M.S. [address] [place] [phone] (Wo rk) documented as of this encounter Procedures Procedure Name Priority Date/Time Associated Diagnosis Comme nts UGT1A1 GENOTYPE Routine 08/23/2021 11:23 AM Malignant Neoplasm Of Results for this WATER SUPERVISOR Pancreas (HCC) procedure are in the results section. documented in this encounter Results UDP-Glucuronosyl Transferase 1A1 TA Repeat Genotype, UGT1A1, Varies (08/23/2021 11:23 AM WATER SUPERVISOR) Component Value Ref Test Analysis Performed Pathologis t Range Method Time At Signature UGT1A1 Genotype No variants detected 08/26/2021 DT L 9:17 AM WATER SUPERVISOR UGT1A1 Phenotype Normal (extensive) 08/26/2021 DTL metabolizer 9:17 AM WATER SUPERVISOR Method Genotyping is performed using a PCR-based 5'-nuclease 08/26/2021 DTL assay. Fluorescently labeled detection probes anneal to the 9:17 AM target DNA. PCR is used to amplify the segment of DNA that WATER SUPERVISOR contains the polymorphism. If the detection probe is an exact match to the target DNA, the 5'-nuclease polymerase degrades the probe, the home energy consultant dye is released from the effects of the quencher dye, and a fluorescent signal is detected. Genotypes are assigned based on the allele-specific fluorescent signals that are detected. (TaqMan SNP Genotyping Assays User Guide, [employer] Disclaimer Targeted analysis of the following UGT1A1 alleles was 08/26/2021 DTL performed by a polymerase chain reaction (PCR)-based 9:17 AM 5'-nuclease assay using fluorescently labeled detection WATER SUPERVISOR probes. The variants detected (c.-2951A>G, c.-364C>T, c.-106T>C) are in linkage disequilibrium with the TA repeat alleles, TA5 or *36: c.-41_-40delTA ([id number]),TA7 or *28: c.-41_-40dupTA (g. [id number]). The cDNA positions are provided using [id number] as a reference; genomic coordinates are based on GRCh37. In addition, this assay detects *6 (c.211G>A). ??The TA7 or *28: c.-41_-40dupTA (g. [id number]) and the TA8 or *37: c.-43_-40dupTATA ([id number]) are both in linkage disequilibrium with c.-2951A>G and c.-364C>T. Therefore, this test is unable to distinguish between TA7 and TA8.TA7 and TA8 are thought to have the same impact on function, and the TA7 is present the vast majority of the time in these instances, so in the presence of the tagging variants, the TA7 is reported. ??c.-106T>C is associated with the TA5 or *36: c.-41_-40delTA ([id number]) variant. This test does not detect or report variants other than the TA5 (*36), TA7 (*28), and *6 alleles. Numerous additional variants have been described that impair UGT1A1 activity. Results should be interpreted in the context of clinical findings, family history, and other laboratory testing. A negative test result does not exclude risk for adverse drug reactions with FWZ2F2-kqriypzzjgj drugs or congenital unconjugated hyperbilirubinemia. If results do not match clinical findings, consider full gene sequencing of the UGT1A1 gene. Drug metabolism may be affected not only by variants in the UGT1A1 gene, but also by other drug-drug interactions. CAUTIONS: Rare variants may be present that could lead to false negative or positive results. If results obtained do not match the clinical findings (phenotype), additional testing should be considered. Samples may contain donor DNA if obtained from patients who received non-leukoreduced blood transfusions or allogeneic hematopoietic stem cell transplantation. Results from samples obtained under these circumstances may not accurately reflect the recipient's genotype. For individuals who have received blood transfusions, the genotype usually reverts to that of the recipient within 6 weeks. For individuals who have received allogeneic hematopoietic stem cell transplantation, a pre-transplant DNA specimen is recommended for testing. UGT1A1 genetic test results in patients who have undergone liver transplantation may not accurately reflect the patient's UGT1A1 status. This test was developed and its performance characteristics determined by [facility] in a manner consistent with CLIA requirements. This test has not been cleared or approved by the U.S. Food and Drug Administration. Reviewed by Sariah Shepherd, 08/26/2021 DTL Ph.D. 9:17 AM WATER SUPERVISOR Interpretation This genotype is not associated with increased risk for 08/26/2021 DTL severe neutropenia while taking irinotecan and is not 9:17 AM associated with increased risk for toxicity and/or WATER SUPERVISOR hyperbilirubinemia while taking atazanavir, belinostat, dolutegravir, nilotinib, and pazopanib. The medication label should be consulted for dosing recommendations. This genotype is not associated with Gilbert syndrome-related unconjugated hyperbilirubinemia. Specimen Anatomical Collection Method Collection Time Receive d Time (Source) Location / / Volume Laterality Varies (Blood, 08/23/2021 11:23 1 Venous) AM WATER SUPERVISOR 12:43 PM WATER SUPERVISOR Narrative This result has an attachment that is no t available. Vladislav Zarco M.D. LAB GENETIC TESTING Performing Organization Address City/State/ZIP Code Phon e Number [facility] - [address] [place], [place] [address] [facility] [place] [address] Laboratories-[facility] [address] documented in this encounter Visit Diagnoses Diagnosis Malignant Neoplasm Of Pancreas (HCC) documented in this encounter Care Teams Grated Cheese Maker Relationship Specialty Start Date End Date Elsewhere, Pcp PCP - General Family Medicine 08/12/20 documented as of this encounter
--- OUTSIDE RECORDS SUMMARY | 2022-06-18 16:09 | XMS_ITS | Encounter Summary ---
:1965 Author Organization [facility] Address [address] [place] [address] Care Team Providers Name Role Phone Elsewhere, Pcp Primary Care Provider Unavailable Encounter Details Date Type Department Care Team Description 08/23/2021 Orders Only Department of Oncology Tamara Escobar Malignant Neoplasm Of in [facility] [phone] Pancreas (HCC) (Primary [address] [facility] (Work) Dx) [place] [address] Social History Tobacco Use Types Packs/Day Years [...] How often do you attend cheondoism or temple services? 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 [address] [place] [address] [phone] (Wo rk) 06/22/2022 [facility] C.N .P., M.S. [address] [place] [address] [phone] (Wo rk) 06/29/2022 Lab [facility], C.N.P., M.S. [address] [place] [address] [phone] (Wo rk) 06/29/2022 [facility], C.N .P., M.S. [address] [place] [address] [phone] (Mj rk) Scheduled Orders Name Type Priority Associated Diagnoses Order S chedule Lab Additional Research Lab Routine Malignant Neoplas m Of Expected: 08/23/2021, Testing: Min # Research Pancreas (HCC) Ex usha: 11/21/2022 Cores or Volume:3-4 clinical cores; 2 research cores - guage per IR documented as of this encounter Visit Diagnoses Diagnosis Malignant Neoplasm Of Pancreas (HCC) - P rimary documented in this encounter Care Teams Book Reviewer Relationship Specialty Start Date End Date Elsewhere, Pcp PCP - General Family Medicine 08/12/20 documented as of this encounter
--- OUTSIDE RECORDS SUMMARY | 2022-06-18 16:09 | XMS_ITS | Encounter Summary ---
:1965 Author Organization [facility] Address [address] [place] [address] Care Team Providers Name Role Phone Elsewhere, Pcp Primary Care Provider Unavailable Encounter Details Date Type Department Care Team Description 08/25/2021 Clinical Communication Department of Oncology Taina Mora, in [facility] [phone] [address] [facility] (Work) [place] [address] Social History Tobacco Use Types Packs/Day Years [...] How often do you attend alevism or mandaen services? 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 [address] [place] [address] [phone] (Mj rk) 06/22/2022 [facility] [address] [place] [address] [phone] (Mj rk) 06/29/2022 [facility] [address] [place] [address] [phone] (Mj rk) 06/29/2022 [facility]., M.S. [address] [place] [address] [phone] (Mj rk) documented as of this encounter Visit Diagnoses Not on filedocumented in this encounter Care Teams Child Care Education Coordinator Relationship Specialty Start Date End Date Elsewhere, Pcp PCP - General Family Medicine 08/12/20 documented as of this encounter
--- OUTSIDE RECORDS SUMMARY | 2022-06-18 16:09 | XMS_ITS | Encounter Summary ---
:1965 Author Organization [facility] Address [address] [place] [id number] Care Team Providers Name Role Phone Elsewhere, Pcp Primary Care Provider Unavailable Reason for Referral Outpatient (Routine) - Closed Specialty Diagnoses / Procedures Referred By Contact Refer red To Contact Oncology Vladislav Zarco M.D. [facility] [address] [place] [phone] Referral ID Status Reason Start Date Expiration Date Visits Requ ested Visits Authorized [id number] Closed 08/19/2021 08/19/2022 1 1 IRON LOADER Encounter Details Date Type Department Care Team Description 08/19/2021 Clinical Communication Department of Oncology Taina Mora, in [facility] [phone] [place] [address] ([facility]) [place] [phone] Social History Tobacco Use Types Packs/Day Years [...] How often do you attend moravian or quaker services? Never 01/15/2021 Do you [...] at Date Recorded Male 08/18/2021 2:55 PM PIG IRON LOADER documented as of this encounter Plan of Treatment Upcoming Encounters Date Type Specialty Care Team Description 06/22/2022 Lab Laboratory Medicine Maria Del Rosario Gomez AP RN, C.N.P., M.S. [address] [place] [address] [phone] (Mj godoy) 06/22/2022 [facility] [address] [place] [address] [phone] (Mj godoy) 06/29/2022 Lab Laboratory Medicine Maria Del Rosario Gomez AP RN, C.N.P., M.S. [address] [place] [address] [phone] (Mj godoy) 06/29/2022 Infusion Oncology [facility] pierre APRN, C.N .P., M.S. [address] [place] [address] [phone] (Mj godoy) Scheduled Referrals Name Type Priority Associated Order Schedule Diagnoses Oncology office Outpatient Referral Routine Expec sally: visit (clinic) 08/20/2021 General; GIH (Approximate), Pancreatic Expires: 11/17/2022 documented as of this encounter Results Phosphorus Inorganic (08/22/2021 9:22 AM PIG IRON LOADER) athologist Signature Phosphorus 3.5 2.5 - 4.5 08/22/2021 DTL (Inorganic), S mg/dL 10:48 AM PIG IRON LOADER Specimen Anatomical Collection Method Collection Time Receive d Time (Source) Location / / Volume Laterality Blood (Blood, 08/22/2021 9:22 AM 08/22/20 9:51 Venous) PIG IRON LOADER AM PIG IRON LOADER Vladislav Zarco M.D. LAB BLOOD ADD-ON Performing Organization Address City/State/[facility] Phon e Number [facility] - [address] [place] [address] [address] [facility] [place] [address] Laboratories[address] Magnesium (08/22/2021 9:22 AM PIG IRON LOADER) athologist Signature Magnesium, S 2.0 1.7 - 2.3 08/22/2021 DTL mg/dL 10:48 AM PIG IRON LOADER Specimen Anatomical Collection Method Collection Time Receive d Time (Source) Location / / Volume Laterality Blood (Blood, 08/22/2021 9:22 AM 08/22/20 9:51 Venous) PIG IRON LOADER AM PIG IRON LOADER Vladislav Zarco M.D. LAB BLOOD ADD-ON Performing Organization Address City/[facility] Phon e Number [facility] - [address] [address] [address] (ABNORMAL) Comprehensive Metabolic Panel (08/22/2021 9:22 AM PIG IRON LOADER) athologist Signature Potassium, S 4.1 3.6 - 5.2 08/22/2021 DTL mmol/L 11:30 AM PIG IRON LOADER Sodium, S 144 135 - 145 08/22/2021 DTL mmol/L 11:30 AM PIG IRON LOADER Chloride, S 108 (H) 98 - 107 08/22/2021 DTL mmol/L 11:30 AM PIG IRON LOADER Bicarbonate, S 23 22 - 29 08/22/2021 DTL mmol/L 11:30 AM PIG IRON LOADER Anion Gap 13 7 - 15 08/22/2021 DTL 11:30 AM PIG IRON LOADER BUN (Blood Urea 14 8 - 24 08/22/2021 DTL Nitrogen), S mg/dL 11:30 AM PIG IRON LOADER Creatinine 0.77 0.74 - 08/22/2021 DTL 1.35 mg/dL 11:30 AM PIG IRON LOADER eGFR-Non >90 >=60 08/22/2021 DTL Black/ mL/min/BSA 11:30 AM PIG IRON LOADER Estonian Comment: ----ADDITIONAL INFORMATION---- Estimated GFR calculated using the 2009 CKD_EPI creatinine equation. eGFR-Black/ >90 >=60 mL/min/BSA 2020 11:30 AM PIG IRON LOADER DTL Comment: ----ADDITIONAL INFORMATION---- Estimated GFR calculated using the 2009 CKD_EPI creatinine equation. Calcium, Total, S 9.1 8.6 - 10.0 mg/dL 08/22/2021 11:3 0 AM PIG IRON LOADER DTL Glucose, S 89 70 - 140 mg/dL 08/22/2021 11:30 AM PIG IRON LOADER DTL Protein, Total, S 7.0 6.3 - 7.9 g/dL 08/22/2021 11:30 AM PIG IRON LOADER DTL Albumin, S 4.2 3.5 - 5.0 g/dL 08/22/2021 11:30 AM PIG IRON LOADER DTL Aspartate Aminotransferase 25 8 - 48 U/L 08/22/2021 1 1:30 AM PIG IRON LOADER DTL (AST), S Alkaline Phosphatase, S 140 (H) 40 - 129 U/L 08/22/2021 11 :30 AM PIG IRON LOADER DTL Alanine Aminotransferase 25 7 - 55 U/L 08/22/2021 11: 30 AM PIG IRON LOADER DTL (ALT), S Bilirubin, Total, S 0.4 <=1.2 mg/dL 08/22/2021 11:30 A M PIG IRON LOADER DTL Specimen Anatomical Collection Method Collection Time Receive d Time (Source) Location / / Volume Laterality Blood (Blood, 08/22/2021 9:22 AM 08/22/20 9:50 Venous) PIG IRON LOADER AM PIG IRON LOADER Vladislav Zarco M.D. LAB BLOOD ADD-ON Performing Organization Address City/State/ZIP Code Phon e Number [facility] - [address] [place], [place] [address] [facility] [place] [address] Laboratories-[facility] [address] Carbohydrate Antigen 19-9 (CA 19-9) (08/22/2021 9:22 AM PIG IRON LOADER) P athologist Signature Carbohydrate Ag 10 <35 U/mL 08/23/2021 SDSC 19-9, S 7:35 PM PIG IRON LOADER Comment: ----ADDITIONAL INFORMATION---- The testing method is an immunoenzymatic assay manufactured by [employer] and performed on the [employer] DxI 800. ? Values obtained with different assay met hods or kits may be different and cannot be used inte rchangeably. ? Test results cannot be interpreted as ab solute evidence for the presence or absence of malignant disease. Specimen Anatomical Collection Method Collection Time Receive d Time (Source) Location / / Volume Laterality Blood (Blood, 08/22/2021 9:22 AM 08/23/20 21 1:40 Venous) PIG IRON LOADER PM PIG IRON LOADER Vladislav Zarco M.D. LAB BLOOD ADD-ON Performing Organization Address City/State/ZIP Code Phon e Number [facility] [address] [place], [place] [address] [facility] [place] [address] Laboratory Medicine and Pathology [address] [place] (ABNORMAL) CBC with Differential, Blood (08/22/2021 9:22 AM PIG IRON LOADER) [facility] gist Method Time Signature Hemoglobin 12.7 (L) 13.2 - 08/22/2021 DTL 16.6 g/dL 9:42 AM PIG IRON LOADER Hematocrit 38.9 38.3 - 08/22/2021 DTL 48.6 % 9:42 AM PIG IRON LOADER Erythrocytes 4.66 4.35 - 08/22/2021 DTL 5.65 9:42 AM PIG IRON LOADER x10(12)/L MCV 83.5 78.2 - 08/22/2021 DTL 97.9 fL 9:42 AM PIG IRON LOADER RBC Distrib Width 13.1 11.8 - 08/22/2021 DTL 14.5 % 9:42 AM PIG IRON LOADER Platelet Count 171 135 - 317 08/22/2021 DTL x10(9)/L 9:42 AM PIG IRON LOADER Leukocytes 5.5 3.4 - 9.6 08/22/2021 DTL x10(9)/L 9:42 AM PIG IRON LOADER Neutrophils 4.35 1.56 - 08/22/2021 DTL 6.45 9:42 AM PIG IRON LOADER x10(9)/L Lymphocytes 0.58 (L) 0.95 - 08/22/2021 DTL 3.07 9:42 AM PIG IRON LOADER x10(9)/L Monocytes 0.45 0.26 - 08/22/2021 DTL 0.81 9:42 AM PIG IRON LOADER x10(9)/L Eosinophils 0.14 0.03 - 08/22/2021 DTL 0.48 9:42 AM PIG IRON LOADER x10(9)/L Basophils <0.03 0.01 - 08/22/2021 DTL 0.08 9:42 AM PIG IRON LOADER x10(9)/L Specimen Anatomical Collection Method Collection Time Receive d Time (Source) Location / / Volume Laterality Blood (Blood, 08/22/2021 9:22 AM 08/22/20 21 9:35 Venous) PIG IRON LOADER AM PIG IRON LOADER Vladislav Zarco M.D. LAB BLOOD ADD-ON Performing Organization Address City/[facility] Phon e Number [facility] - [address] Prothrombin Time (PT) (08/22/2021 9:22 AM PIG IRON LOADER) P athologist Signature Prothrombin 11.0 9.4 - 12.5 08/22/2021 DTL Time, P sec 9:57 AM PIG IRON LOADER INR 1.0 0.9 - 1.1 08/22/2021 DTL 9:57 AM PIG IRON LOADER Comment: ----ADDITIONAL INFORMATION---- Standard intensity warfarin therapeutic range: 2.0 to 3.0 ?? High intensity warfarin therapeutic rang e: 2.5 to 3.5 Specimen Anatomical Collection Method Collection Time Receive d Time (Source) Location / / Volume Laterality Blood (Blood, 08/22/2021 9:22 AM 08/22/20 21 9:35 Venous) PIG IRON LOADER AM PIG IRON LOADER Vladislav Zarco M.D. LAB BLOOD ADD-ON Performing Organization Address [facility] Phon e Number [facility] - [address] [place] [address] documented in this encounter Visit Diagnoses Diagnosis Malignant Neoplasm Of Pancreas (HCC) - P rimary documented in this encounter Care Teams Multimedia Authoring Specialist Relationship Specialty Start Date End Date Elsewhere, Pcp PCP - General Family Medicine 08/12/20 documented as of this encounter
--- OUTSIDE RECORDS SUMMARY | 2022-06-18 16:09 | XMS_ITS | Encounter Summary ---
:1965 Author Organization [facility] Address [address] [place] [address] Care Team Providers Name Role Phone Elsewhere, Pcp Primary Care Provider Unavailable Reason for Referral MRI/CAT/PET Scan (Routine) - Closed Specialty Diagnoses / Procedures Referred By Contact Refer red To Contact Radiology Diagnoses Malignant Neoplasm Of Pancreas (HCC) Vladislav Zarco M.D. [facility] Procedures MR Liver Biopsy with Imaging Guidance ND [facility] [address] [place] [address] Referral ID Status Reason Start Date Expiration Date Visits Requ ested Visits Authorized [id number] Closed 08/23/2021 08/23/2022 1 1 SALES CONSULTANT MRI/CAT/PET Scan (Routine) - Closed Specialty Diagnoses / Procedures Referred By Contact Refer red To Contact Radiology Diagnoses Lesion Liver Trell Chris M.D., [facility] Procedures MR Liver Biopsy with Imaging Guidance [facility] [employer] Ph.D. [address] [place] [address] Referral ID Status Reason Start Date Expiration Date Visits Requ ested Visits Authorized [id number] Closed 08/19/2021 08/19/2022 1 1 SALES CONSULTANT Reason for Visit Auth/Cert Specialty Diagnoses / Procedures Referred By Contact Refer red To Contact Diagnoses Lesion Liver Malignant Neoplasm Of Pancreas (HCC) Procedures MR LIVER BIOPSY WITH IMAGING GUIDANCE MR LIVER BIOPSY WITH IMAGING GUIDANCE HOSP OP Referral ID Status Reason Start Date Expiration Date Visits Requ ested Visits Authorized [id number] 1 1 Encounter Details Date Type Department Care Team Description 08/23/2021 Hospital Encounter Department of Aries, Angelo Chilel M.D., Ph.D. [address] [place] [phone] Lesion Liver; Radiology, La Owen, [employer] STOCK CLERK, STRIP POLISHER, DNAP [address] [place] [phone] Malignant Neoplasm Of Pancreas (HCC) [place], [place] [address] [place] [phone] Social History Tobacco Use Types Packs/Day Years [...] How often do you attend orthodox or roman catholic services? Never 01/15/2021 Do [...] Date Recorded Male 08/18/2021 2:55 PM ART SALES CONSULTANT documented as of this encounter Last Filed Vital Signs Vital Sign Reading Time Taken Comments Blood Pressure 115/64 08/23/2021 6:30 PM ART SALES CONSULTANT Pulse 84 08/23/2021 6:30 PM ART SALES CONSULTANT Temperature 36.4 ??C (97.5 ??F) 08/23/2021 6:56 PM ART SALES CONSULTANT Respiratory Rate 14 08/23/2021 6:30 PM ART SALES CONSULTANT Oxygen Saturation 98% 08/23/2021 6:30 PM ART SALES CONSULTANT Inhaled Oxygen Concentration - - Weight 80.9 kg (178 lb 5.6 oz) 08/23/2021 6:36 PM ART SALES CONSULTANT Height - - Body Mass Index 25.22 08/23/2021 8:34 AM ART SALES CONSULTANT documented in this encounter Discharge Instructions Discharge InstructionsEliza Grant R.N. - 08/23/2021 5:53 PM CST Instructions After Sedation or Anesthesia After you have sedation or anesthesia, it is common to have lapses of memory, slowed reaction time and impaired judgment. Do not drive or operate motorized vehicles or equipment for the rest of the day. This is for your safety and the safety of others. Air travel by yourself on the day of your procedure is not advised. For the rest of the day: ??? Rest. ??? Do not return to work or school. ??? Do not take on responsibility for children or anyone who depends on your care. ??? Do not use exercise equipment or take part in rough play or sports. ??? Do not drink alcoholic beverages. Sedation or anesthesia medication also may increase your risk of falling. Use caution and ask for help when you walk or move around. You may want to have someone help you for the rest of the day. You may resume your usual diet when you feel able to do so, unless you are told otherwise. Contact your health care provider if you have: ??? The following side effects longer than 24 hours: - Ongoing dizziness. - Persistent nausea or repeated vomiting. ??? Signs of infection, which may include: - Temperature of 100.4 degrees Fahrenheit (38 degrees Celsius) or higher. - Chills. - Increase swelling, tenderness or redness at the IV insertion site. - Increased pain or pain not relieved by pain medication. SALES CONSULTANT AttachmentsThe following attachments cannot be sent through Care Everywhere. About Your Ultrasound-Guided Liver Biopsy ([facility])documented in this encounter Medications at Time of [...] the counter lidocaine cream for back pain [id number] Take 2 capsules by 240 capsule 3 [...] Gomez AP RN, C.N.P., M.S. [address] [place] [phone] (Wo rk) 06/22/2022 Infusion Oncology Maria Del Rosario Gomez APRN, C.N .P., M.S. [address] [place] [phone] (Wo rk) 06/29/2022 Lab Laboratory Medicine Maria Del Rosario Gomez AP RN, C.N.P., M.S. [address] [place] [phone] (Wo rk) 06/29/2022 Infusion Oncology Maria Del Rosario Gomez APRN, C.N .P., M.S. [address] [place] [phone] (Wo rk) documented as of this encounter Procedures Procedure Name Priority Date/Time Associated Comments Diagnosis MR LIVER BIOPSY RAD - Routine 08/23/2021 5:08 Malignant Results for this WITH IMAGING (most inpatients PM ART SALES CONSULTANT Neoplasm Of procedure a re in GUIDANCE and all Pancreas (HCC) the results outpatients) Lesion Liver section. MR LIVER BIOPSY RAD - Routine 08/23/2021 5:08 Lesion Liver Results for this WITH IMAGING (most inpatients PM ART SALES CONSULTANT procedure a re in GUIDANCE and all the results outpatients) section. SURGICAL Routine 08/23/2021 4:52 Lesion Liver Results for this PATHOLOGY PM ART SALES CONSULTANT Malignant procedure are i n Neoplasm Of the results Pancreas (HCC) section. documented in this encounter Results MR Liver Biopsy with Imaging Guidance (08/23/2021 5:08 PM ART SALES CONSULTANT) Anatomical Region Laterality Modality Abdomen, Abdominal RST LOS, Abdominal FLA LOS, Vascular N/A Magnetic Resonance Interventional ARZ LOS Specimen (Source) Anatomical Collection Method Collection Time Re ceived Time Location / / Volume Laterality 08/23/2021 5:12 PM ART SALES CONSULTANT Impressions 08/23/2021 5:16 PM ART SALES CONSULTANT Successful MR guided liver biopsy. Preprocedure: Patient [...] fellows hiro griffith discussed. Sedation provided by STRIP POLISHER. NR Narrative 08/23/2021 5:16 PM ART SALES CONSULTANT Summary: ??MR guided liver biopsy Guidance: MR [...] research (3) and pathology (2) for analysis. [place] were removed and gel-f oam injected. Final [...] research (3) and pathology (2) for analysis. [place] were removed and gel-f oam injected. Final [...] fellows hiro griffith discussed. Sedation provided by STRIP POLISHER. NR Vladislav WONG MRI PROCEDURES MR Liver Biopsy with Imaging Guidance (08/23/2021 5:08 PM ART SALES CONSULTANT) Anatomical Region Laterality Modality Abdomen, Abdominal RST LOS, Abdominal FLA LOS, Vascular N/A Magnetic Resonance Interventional ARZ LOS Specimen (Source) Anatomical Collection Method Collection Time Re ceived Time Location / / Volume Laterality 08/23/2021 5:12 PM ART SALES CONSULTANT Impressions 08/23/2021 5:16 PM ART SALES CONSULTANT Successful MR guided liver biopsy. Preprocedure: Patient [...] fellows hiro griffith discussed. Sedation provided by STRIP POLISHER. NR Narrative 08/23/2021 5:16 PM ART SALES CONSULTANT Summary: ??MR guided liver biopsy Guidance: MR guided Organ: Liver Biopsy gauge: 18-gauge Technique: Patient was brought into the anteroo where anesthesia was initiated. Patient was placed [...] research (3) and pathology (2) for analysis. [place] were removed and gel-f oam injected. Final images demonstrate no evidence of hematoma. Patient was bro ught out of the MR suite and extubated. Patient tired the procedure well with no immediate complications. Procedure Note Trell Chris M.D., Ph.D. - 08/23/20 21 Summary: MR guided liver biopsy Guidance: MR guided Organ: Liver Biopsy gauge: 18-gauge Technique: [facility]. Patient was placed [...] research (3) and pathology (2) for analysis. [place] were removed and gel-f oam injected. Final [...] care team members, residents, and fellows hiro e discussed. Sedation provided by STRIP POLISHER. NR Trell Chris M.D., Ph.D. IMG MRI PROCEDURES Surgical Pathology (08/23/2021 4:52 PM ART SALES CONSULTANT) Component Value Ref Test Analysis Performed Pathologis t Range Method Time At Signature 08/27/2021 DTL 9:43 AM ART SALES CONSULTANT Participated in [facility] 08/27/2021 DTL mukesh Shepherd M.D. 9:43 AM Interpretation -Pathology Fellow ART SALES CONSULTANT Report Gonzalo Boles M.D. [phone] 08/27/2021 DTL electronically Seen in consultation with: Dr. Lloyd Delatorre, M. B.B.S. 9:43 AM signed by [phone] ART SALES CONSULTANT I verify that I have examined all relevant slides/materials for the specimen(s) and rendered or confirmed the diagnosis. Gross Description Received in formalin labeled with the patient's n cain, 08/27/2021 DTL medical record number, and liver, right dome are two knight 9:43 AM soft tissue cores and four fragments, ranging from 0.1-1.6 ART SALES CONSULTANT cm in length. Specimens are submitted en toto in cassette A1. ??Grossed by TAMMIE. Disclaimer This test was developed and its performance characteri stics 08/27/2021 DTL determined by [facility] in a manner consistent with CLIA 9:43 AM requirements. This test has not been cleared or approved by ART SALES CONSULTANT the [place]. Food and Drug Administration. Interpretation FINAL DIAGNOSIS 08/27/2021 DTL Liver, needle biopsy: ??Liver tissue with focal involvement 9:43 AM by atypical glands, suspicious for of metastatic ART SALES CONSULTANT adenocarcinoma. COMMENT: The history of pancreatic cancer and PET-positive liver lesion are noted. ??Histologic sections show liver parenchyma focally involved by atypical glands with moderate nuclear pleomorphism. ??Immunohistochemical stains are attempted (CK20, CDX2, Ki-67 Qual, SMAD4), however, there is insufficient tissue for further evaluation. The overall findings in this case are suspicious for, but not diagnostic of, adenocarcinoma. ??I have reviewed this case with my colleague in GI and liver pathology, Dr. ANGELIA Delatorre, who concurs with the above interpretation. Specimen (Source) Anatomical Collection Method Collection Time Re ceived Time Location / / Volume Laterality Tissue (Liver) 08/23/2021 4:52 PM ART SALES CONSULTANT Narrative This result has an attachment that is no t available. Vladislav Zarco M.D. LAB SURG PATH ORDERABLES Performing Organization Address City/State/ZIP Code Phon e Number [facility] - [address] [place], [place] [address] [facility] [place] [place] [address] Laboratories-[facility] [address] documented in this encounter Visit Diagnoses Diagnosis Lesion Liver Malignant Neoplasm Of Pancreas (HCC) documented in this encounter Administered Medications Inactive Administered Medications - up to 3 most recent administrations Medication Order MAR Action Action Date Dose Rate Site heparin flush 500 Units Given 08/23/2021 7:03 PM ART SALES CONSULTANT 500 Units Port 500 Units, intra-catheter, During hospitalization, line care, Prior to discharge, Starting on Mon08/23/21 at 1837, For 1 dose, Implanted Vascular Access Device (IVAD) Venous Non-Valved: Following saline flush prior to discharge. lidocaine 4 % cream 1 application Given 08/23/2021 2:27 PM ART SALES CONSULTANT 1 application Chest (LMX) 1 application, topical, Once as needed, peripheral intravenous access, Starting on Mon08/23/21 at 1423, For 1 dose, Pre-Op, Max dose: 2.5 gram; Max application area: [...] Apply 30 minutes prior to indicated procedure. sodium chloride 0.9 % injection 10 mL 10 mL, intravenous, During hospitalizati on, line care, Prior to discharge, Starting on Mon08/23/21 at 1837, For 1 dose, Imp lanted Vascular Access Device (IVAD) Venous Non-Valved: Followed by heparin flush prior to dischar ge. documented in this encounter Active and Recently Administered Medications Times are shown in ART SALES CONSULTANT. PRN Medication Order 08/21/2021 08/22/2021 08/23/2021 heparin flush 500 Units (COMPLETED) 1903 (Given - Provider: Terri Tristan R.N. - Comment: heparin locked) 500 Units, intra-catheter, During hospit alization, line care, Prior to discharge, Starting on Mon08/23/21 at 1837, For 1 dose, Implanted Vascular Access Device (IVAD) Venous Non-Valved: Following saline flush prior to discharge. lidocaine 4 % cream 1 application (LMX) (COMPLETED) 1427 (Given - Provider: Elizabeth Dhillon R.N.) 1 application, topical, Once as needed, peripheral intravenous access, Starting on Mon08/23/21 at 1423, For 1 dose, Pre-Op, Max dose: 2.5 gram; Max application area: 2.5 x 2.5 cm; Max application time: 5 hours. Do not cleanse the skin prior to Topical Lidocaine (LMX-4??) application (although you should not apply over moisturizers or other topical medications) as Topical Lidocaine (LMX-4??) works bes t when it mixes with the skin surface oi ls. Wearing gloves, begin by rubbing a small amount of Topical Lidocaine (LMX-4??) cream into each of the sites for approximately 30 seconds. Apply another layer of Topical Lidocaine (LMX-4??) cream, th is time with a thicker coating (approximately the size of a quarter). Cover Topical Lidocaine (LMX-4??) with occlusive dressing, sealing edges ONLY to prevent pat ient from accidental ingestion or eye co ntact. Apply 30 minutes prior to indicated procedure. sodium chloride 0.9 % injection 10 mL 10 mL, intravenous, During hospitalizati on, line care, Prior to discharge, Starting on Mon08/23/21 at 1837, For 1 dose, Implanted Vascular Access Device (IVAD) Venous Non-Valved: Followed by heparin flush prior to discharge. documented in this encounter Care Teams Cigarette Tester Relationship Specialty Start Date End Date Elsewhere, Pcp PCP - General Family Medicine 08/12/20 documented as of this encounter
--- OUTSIDE RECORDS SUMMARY | 2022-06-18 16:09 | XMS_ITS | Encounter Summary ---
:1965 Author Organization [facility] Address [address] [place] [address] Care Team Providers Name Role Phone Elsewhere, Pcp Primary Care Provider Unavailable Reason for Referral MRI/CAT/PET Scan (Routine) - Closed Specialty Diagnoses / Procedures Referred By Contact Refer rossi To Contact Radiology Diagnoses Other Specified Diseases Of Liver Vladislav Zarco M.D. [facility] Procedures PET MR Abdomen Focused Without and With IV Contrast IL MRI ABDOMEN WO/W CNTRST [address] [place], [place] [phone] Referral ID Status Reason Start Date Expiration Date Visits Requ ested Visits Authorized [id number] Closed 08/16/2021 08/16/2022 1 1 ENT ACCESS REGISTRAR Outpatient (Routine) - Closed Specialty Diagnoses / Procedures Referred By Contact Radha richey To Contact Diagnoses Malignant Neoplasm Of Pancreas (HCC) Lesion Liver Vladislav Zarco M.D. [facility] Procedures PET MR Skull to Thigh Survey FDG IL PET TRUNK [address] [place] [address] Referral ID Status Reason Start Date Expiration Date Visits Requ ested Visits Authorized [id number] Closed 08/16/2021 08/16/2022 1 1 ENT ACCESS REGISTRAR Reason for Visit MRI/CAT/PET Scan (Routine) - Closed Specialty Diagnoses / Procedures Referred By Contact Refer red To Contact Radiology Diagnoses Other Specified Diseases Of Liver Vladislav Zarco M.D. [facility] [place] [facility] Procedures PET MR Abdomen Focused Without and With IV Contrast IL MRI ABDOMEN WO/W CNTRST [address] [place] [phone] Referral ID Status Reason Start Date Expiration Date Visits Requ ested Visits Authorized [id number] Closed 08/16/2021 08/16/2022 1 1 Encounter Details Date Type Department Care Team Description 08/18/2021 Hospital Encounter Department of Jose Zarco Neoplasm Of Pancreas (HCC); Radiology, Georgie Castellano Lesion Liver; [place], in [place], [address] [place] [address] Other Specified Diseases Of Liver [place], [place] [address] [place] [phone] [place], [place] [phone] (Work) [phone] Social History Tobacco Use Types Packs/Day Years [...] How often do you attend temple or mormonism services? Never 01/15/2021 Do you [...] Date Recorded Male 08/18/2021 2:55 PM PATIENT ACCESS REGISTRAR documented as of this encounter Medications at [...] the counter lidocaine cream for back pain [id number] Take 2 capsules by 240 capsule 3 [...] Pain/Nonacute Pain. documented as of this encounter Nursing Notes Vicki Cantu R.N. - 08/18/2021 3:45 PM CST Eovist administration screening: Has radiologist issued an order for Gadoxetrate Disodium (Eovist)? YES If yes???continue Was eGFR Point of care for MRI scan Protocol reviewed by RN? YES If yes???continue Is patient jaundiced? NO If no???.continue. If yes, notify Radiologists prior to preceeding. Does patient have a total bilirubin documented in the past 30 days in the electronic medical record?YES If yes???continue to next question. If no, continue to administration of medication. If documented in past 30 days, was patient???s bilirubin level less than or equal to 3mg/dL? YES If yes???(or if patient does not have a bilirubin documented) administer medications as ordered and outlined in medication reference document. ENT ACCESS REGISTRAR documented in this encounter Plan of Treatment Upcoming Encounters Date Type Specialty Care Team Description 06/22/2022 Lab Laboratory Medicine Maria Del Rosario Gomez AP RN, C.N.P., M.S. [address] [place] [phone] (Mj godoy) 06/22/2022 Infusion Oncology Maria Del Rosario Gomez APRN, C.N .P., M.S. [address] [place] [phone] (Mj godoy) 06/29/2022 Lab Laboratory Medicine Maria Del Rosario Gomez AP RN, C.N.P., M.S. [address] [place] [phone] (Mj godoy) 06/29/2022 Infusion Oncology Maria Del Rosario Gomez, GUERO, C.N .P., M.S. [address] [place] [phone] (Wo rk) documented as of this encounter Procedures Procedure Name Priority Date/Time Associated Comments Diagnosis PET MR ABDOMEN RAD - Routine 08/18/2021 4:49 Other Specified Result s for this FOCUSED WITHOUT (most inpatients PM PATIENT ACCESS REGISTRAR Diseases Of Liver pro cedure are in AND WITH IV and all the results CONTRAST outpatients) section. PET MR TORSO RAD - Routine 08/18/2021 4:49 Malignant Results for this SURVEY FDG (most inpatients PM PATIENT ACCESS REGISTRAR Neoplasm Of procedure a re in and all Pancreas (HCC) the results outpatients) Lesion Liver section. documented in this encounter Results PET MR Abdomen Focused Without and With IV Contrast (08/18/2021 4:49 PM PATIENT ACCESS REGISTRAR) Anatomical Region Laterality Modality Abdomen, Abdominal RST LOS, PET ARZ N/A Posi manny Emission Tomography (PET), LOS, Abdominal ARZ LOS, Nuclear Magnetic Resonance Medicine PET FLA LOS Specimen (Source) Anatomical Collection Method Collection Time Re ceived Time Location / / Volume Laterality 08/19/2021 7:28 AM PATIENT ACCESS REGISTRAR Impressions 08/19/2021 10:12 AM PATIENT ACCESS REGISTRAR - Right posterior hepatic dome lesion is typical for liver metastasis. - Stable treated pancreatic uncinate pro cess neoplasm. Refer to the most recent CT for dedicate d vascular staging. Narrative 08/19/2021 10:12 AM PATIENT ACCESS REGISTRAR EXAM: ??PET MR ABDOMEN FOCUSED WITHOUT AND WITH IV CONTRAST COMPARISON: ?? CT 08/13/2021 and other relevant priors. Imaging performed in conjunction with a survey PET/MRI of the body. For further details regarding the PET portion of thi s exam, and all findings outside of the abdomen please see separate report. FINDINGS: ?? Essentially stable pancreatic uncinate p rocess neoplasm, which is challenging to discretely measure. The pancreatic duct in the upstream gland is slightly patulous but with caliber still within n ormal limits. Similar peripancreatic fluid and edema, consistent with sequela of episodes of pancreatitis. Similar positioning of metallic covered common b ile duct stent with pneumobilia. Transgastric drains terminating in the l eft midabdomen, with similar positioning as well. Non-cirrhotic liver with mild hepato-odmenica atosis. Posterior hepatic dome 1.7 x 1.9 cm mildly T2 hyperintense (14/10), DWI-r estricting (16/94), rim-enhancing lesion (7/23) without gadoxetate disodium excre tion on hepato-biliary phase images (18/56), with corresponding FDG uptake o n same-day PET. Small ill-defined area of restricted diffusion (16/105) without gadoxetate disodium excretion along the right posterior-inferior hepatic lobe (1 8/133), without accompanying FDG uptake on same-day PET. 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 The lower SMV and portal veins are patent. Celiac, splenic, hepat ic arteries and GDA are patent. The SMA and SOPHY are patent. Left gonadal vein em bolization. Refer to the most recent CT for dedicated vascular staging. Stable o r negative the remainder of the exam. Procedure Note Donal Paz M.D. - 08/19/2021Format ting of this note might be different from the original. EXAM: PET MR ABDOMEN FOCUSED WITHOUT AND WITH IV CONTRAST COMPARISON: CT 08/13/2021 and other relevant priors. Imaging performed in conjunction with a survey PET/MRI of the body. For further details regarding the PET portion of thi s exam, and all findings outside of the abdomen please see separate report. FINDINGS: Essentially stable pancreatic uncinate p rocess neoplasm, which is challenging to discretely measure. The pancreatic duct in the upstream gland is slightly patulous but with caliber still within n ormal limits. Similar peripancreatic fluid and edema, consistent with sequela of episodes of pancreatitis. Similar positioning of metallic covered common b ile duct stent with pneumobilia. Transgastric drains terminating in the l eft midabdomen, with similar positioning as well. Non-cirrhotic liver with mild hepato-domenica atosis. Posterior hepatic dome 1.7 x 1.9 cm mildly T2 hyperintense (14/10), DWI-r estricting (/94), rim-enhancing lesion (7/23) without gadoxetate disodium excre tion on hepato-biliary phase images (18/56), with corresponding FDG uptake o n same-day PET. Small ill-defined area of restricted diffusion (16/105) without gadoxetate disodium excretion along the right posterior-inferior hepatic lobe (1 8/133), without accompanying FDG uptake on same-day PET. 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 The lower SMV and portal veins are patent. Celiac, splenic, hepat ic arteries and GDA are patent. The SMA and SOPHY are patent. Left gonadal vein em bolization. Refer to the most recent CT for dedicated vascular staging. Stable o r negative the remainder of the exam. IMPRESSION: - Right posterior hepatic dome lesion is typical for liver metastasis. - Stable treated pancreatic uncinate pro cess neoplasm. Refer to the most recent CT for dedicate d vascular staging. Vladislav WONG MRI PROCEDURES PET MR Skull to Thigh Survey FDG (08/18/2021 4:49 PM PATIENT ACCESS REGISTRAR) Anatomical Region Laterality Modality Body, Nuclear Medicine PET RST LOS, N/A Posi manny Emission Tomography (PET), PET ARZ LOS, Nuclear Medicine PET FLA Ma gnetic Resonance LOS, Nuclear Medicine Specimen (Source) Anatomical Collection Method Collection Time Re ceived Time Location / / Volume Laterality 08/19/2021 8:53 AM PATIENT ACCESS REGISTRAR Impressions 08/19/2021 1:28 PM PATIENT ACCESS REGISTRAR FDG avid pancreatic uncinate adenocarcinoma with a new FDG avid posterior right hepatic lobe lesion, hig hly suspicious for metastasis. Narrative 08/19/2021 1:28 PM PATIENT ACCESS REGISTRAR EXAM: PET MR SKULL TO THIGH SURVEY FDG Serum glucose at time of F-18 FDG inject ion was 85 mg/dL. RADIOPHARMACEUTICAL/MEDS: Route: intravenous fludeoxyglucose F 18 injection HALF-WAY (FDG F-18),10.25 millicurie TECHNIQUE: F-18 FDG PET/MR scan was perf ormed from the vertex through the thighs with MR fusion imaging for attenuation c orrection, anatomic coregistration and respiratory gating only, with imaging be ginning at approximately 60 minutes after radiotracer injection. COMPARISON: PET/CT 08/19/2020, MR abdome n 09/09/2020, CT abdomen pelvis 08/13/2021 Imaging performed in conjunction with fo cused PET/MRI. For further details regarding the focused MRI portion of thi s exam please see separate dictated report. INDICATION: Pancreatic adenocarcinoma. 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 Status post chemoradiation therapy. CBD stenting. David bsequent treatment strategy. The patient reports no recent vaccinatio ns. FINDINGS: Since the prior PET/CT, radiotracer upta ke in the region of the pancreatic uncinate mass with SUVmax 3.6 (whole bod y fused axial image 210), previously difficult to delineate activity given ex tensive pancreatitis with marked inflammation and uptake. Overall, signif icant reduction in pancreatic and peripancreatic inflammation with persist ent scattered low-grade FDG activity in the pancreas suggesting mild persistent inflammation. Persistent inflammatory uptake along the common bile duct stent, overall decreased. New FDG avid lesion in the posterior rig ht hepatic dome (whole body fused axial image 172) with SUV max 6.9. Ill-defined region of focally increased FDG uptake within the hypertrophied left hepatic lo be (whole body fused axial image image 175) dissipates on the later performed a dvanced focused abdominal PET images, suggesting this is likely inflammatory. No hypermetabolic lymphadenopathy or add itional parenchymal lesions. Decreased diffuse bone marrow activity compatible with cessation of chemotherapy. Scattered degenerative musculoskeletal a ctivity. Some radiotracer activity is seen adjace nt to the course of the transgastric drain with some mild soft tissue tetheri ng favored to represent inflammation secondary to evolving changes from prior extensive pancreatitis. Significant incidental findings on the s urvey whole body MRI images: Right chest port with catheter tip near the SVC/RA j unction. Transgastric drain. Procedure Note Kurtis Baron M.D. - 08/19/2021Format ting of this note might be different from the original. EXAM: PET MR SKULL TO THIGH SURVEY FDG Serum glucose at time of F-18 FDG inject ion was 85 mg/dL. RADIOPHARMACEUTICAL/MEDS: Route: intravenous fludeoxyglucose F 18 injection HALF-WAY (FDG F-18),10.25 millicurie TECHNIQUE: F-18 FDG PET/MR scan was perf ormed from the vertex through the thighs with MR fusion imaging for attenuation c orrection, anatomic coregistration and respiratory gating only, with imaging be ginning at approximately 60 minutes after radiotracer injection. COMPARISON: PET/CT 08/19/2020, MR abdome n 09/09/2020, CT abdomen pelvis 08/13/2021 Imaging performed in conjunction with fo cused PET/MRI. For further details regarding the focused MRI portion of thi s exam please see separate dictated report. INDICATION: Pancreatic adenocarcinoma. 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 Status post chemoradiation therapy. CBD stenting. David bsequent treatment strategy. The patient reports no recent vaccinatio ns. FINDINGS: Since the prior PET/CT, radiotracer upta ke in the region of the pancreatic uncinate mass with SUVmax 3.6 (whole bod y fused axial image 210), previously difficult to delineate activity given ex tensive pancreatitis with marked inflammation and uptake. Overall, signif icant reduction in pancreatic and peripancreatic inflammation with persist ent scattered low-grade FDG activity in the pancreas suggesting mild persistent inflammation. Persistent inflammatory uptake along the common bile duct stent, overall decreased. New FDG avid lesion in the posterior rig ht hepatic dome (whole body fused axial image 172) with SUV max 6.9. Ill-defined region of focally increased FDG uptake within the hypertrophied left hepatic lo be (whole body fused axial image image 175) dissipates on the later performed a dvanced focused abdominal PET images, suggesting this is likely inflammatory. No hypermetabolic lymphadenopathy or add itional parenchymal lesions. Decreased diffuse bone marrow activity compatible with cessation of chemotherapy. Scattered degenerative musculoskeletal a ctivity. Some radiotracer activity is seen adjace nt to the course of the transgastric drain with some mild soft tissue tetheri ng favored to represent inflammation secondary to evolving changes from prior extensive pancreatitis. Significant incidental findings on the s urvey whole body MRI images: Right chest port with catheter tip near the SVC/RA j unction. Transgastric drain. IMPRESSION: FDG avid pancreatic uncinate adenocarcin yvonne with a new FDG avid posterior right hepatic lobe lesion, hig hly suspicious for metastasis. Vladislav WONG NM PROCEDURES documented in this encounter Visit Diagnoses Diagnosis Malignant Neoplasm Of Pancreas (HCC) Lesion Liver Other Specified Diseases Of Liver documented in this encounter Administered Medications Inactive Administered Medications - up to 3 most recent administrations Medication Order MAR Action Action Date Dose Rate Site fludeoxyglucose F 18 Given 08/18/2021 10.25 millicuries Left Antecubital injection HALF-WAY (FDG 2:45 PM PATIENT ACCESS REGISTRAR F-18) 10.25 millicurie, intravenous, Once, On Mon08/18/21 at 1500, For 1 dose gadoxetate injection 0.1-20 mL (EOVIST) Given 08/18/2021 4:41 PM PATIENT ACCESS REGISTRAR 10 mL 0.1-20 mL, intravenous, Once, On Mon08/18/21 at 1415, For 1 dose, Imaging Protocol Orders, Dose per Radiant Medication Guidelines sodium chloride (PF) 0.9 % injection 1-1 00 mL Given 08/18/2021 4:42 PM PATIENT ACCESS REGISTRAR 30 mL 1-100 mL, intravenous, Once, On Mon08/18/21 at 1415, For 1 dose, Imaging Protocol Orders documented in this encounter Care Teams Tumblers Supervisor Relationship Specialty Start Date End Date Elsewhere, Pcp PCP - General Family Medicine 08/12/20 documented as of this encounter
--- OUTSIDE RECORDS SUMMARY | 2022-06-18 16:09 | XMS_ITS | Encounter Summary ---
:1965 Author Organization [facility] Address [address] [place] [id number] Care Team Providers Name Role Phone Elsewhere, Pcp Primary Care Provider Unavailable Reason for Referral Outpatient (Routine) - Closed Specialty Diagnoses / Procedures Referred By Contact Refer red To Contact Pharmacy Diagnoses Malignant Neoplasm Of Pancreas (HCC) Vladislav Zarco, [facility] Procedures Pharmacy - Investigational (Hem/Onc) [facility] [address] [place] [phone] Referral ID Status Reason Start Date Expiration Date Visits Requ ested Visits Authorized [id number] Closed 08/26/2021 08/26/2022 1 1 WASHER Encounter Details Date Type Department Care Team Description 08/26/2021 Orders Only Department of Oncology Tamara Escobar Malignant Neoplasm Of in [facility] [phone] Pancreas (HCC) (Primary 200 [facility] (Work) Dx) [place] [phone] Social History Tobacco Use Types Packs/Day Years [...] How often do you attend gnosticist or rastafari services? Never 01/15/2021 Do you [...] at Date Recorded Male 08/18/2021 2:55 PM COAL WASHER documented as of this encounter Plan of Treatment Upcoming Encounters Date Type Specialty Care Team Description 06/22/2022 Lab Laboratory Medicine Maria Del Rosario Gomez AP RN, C.N.P., M.S. [address] [place] [phone] (Mj rk) 06/22/2022 Infusion Oncology Maria Del Rosario Gomez APRN, C.N .P., M.S. [address] [place] [phone] (Wo rk) 06/29/2022 Lab Laboratory Medicine Maria Del Rosario Gomez AP RN, C.N.P., M.S. [address] [place] [phone] (Wo rk) 06/29/2022 Infusion Oncology Maria Del Rosario Gomez APRN, C.N .P., M.S. [address] [place] [phone] (Wo rk) documented as of this encounter Visit Diagnoses Diagnosis Malignant Neoplasm Of Pancreas (HCC) - P rimary documented in this encounter Care Teams Director Process Improvement Relationship Specialty Start Date End Date Elsewhere, Pcp PCP - General Family Medicine 08/12/20 documented as of this encounter
--- OUTSIDE RECORDS SUMMARY | 2022-06-18 16:09 | XMS_ITS | Encounter Summary ---
:1965 Author Organization [facility] Address [address] [place] [address] Care Team Providers Name Role Phone Elsewhere, Pcp Primary Care Provider Unavailable Reason for Referral MRI/CAT/PET Scan (Routine) - Closed Specialty Diagnoses / Procedures Referred By Contact Refer red To Contact Radiology Diagnoses Other Specified Diseases Of Liver Vladislav Zarco M.D. [facility] Procedures PET MR Abdomen Focused Without and With IV Contrast TN MRI ABDOMEN WO/W CNTRST [address] [place], [place] [address] Referral ID Status Reason Start Date Expiration Date Visits Requ ested Visits Authorized [id number] Closed 08/16/2021 08/16/2022 1 1 UCTION PLANNER Outpatient (Routine) - Closed Specialty Diagnoses / Procedures Referred By Contact Refer red To Contact Diagnoses Malignant Neoplasm Of Pancreas (HCC) Lesion Liver Vladislav Zarco M.D. [facility] Procedures PET MR Skull to Thigh Survey FDG TN PET TRUNK [address] [place] [address] Referral ID Status Reason Start Date Expiration Date Visits Requ ested Visits Authorized [id number] Closed 08/16/2021 08/16/2022 1 1 UCTION PLANNER Encounter Details Date Type Department Care Team Description 08/16/2021 Orders Only Department of Oncology Vladislav Zarco Malignant Neoplasm Of Pancreas (HCC) (Primary Dx); in Randall Perdomo M.D. Other Specified Diseases Of Liver; [place] [address] [facility] Lesion Liver [address] [place] [phone] Social History Tobacco Use Types Packs/Day Years [...] How often do you attend scientology or zoroastrian services? Never 01/15/2021 Do you [...] at Date Recorded Male 08/18/2021 2:55 PM PRODUCTION PLANNER documented as of this encounter Plan of Treatment Upcoming Encounters Date Type Specialty Care Team Description 06/22/2022 Lab Laboratory Medicine Maria Del Rosario Gomez AP RN, C.N.P., M.S. [address] [place] [address] [phone] (Mj godoy) 06/22/2022 Infusion Oncology Maria Del Rosario Gomez APRN, C.N .P., M.S. [address] [place] [address] [phone] (Mj godoy) 06/29/2022 Lab Laboratory Medicine Maria Del Rosario Gomez AP RN, C.N.P., M.S. [address] [place] [address] [phone] (Wo rk) 06/29/2022 Infusion Oncology Maria Del Rosario Gomez APRN C.N .P., M.S. [address] [place], [place] [phone] (Wo rk) documented as of this encounter Results PET MR Abdomen Focused Without and With IV Contrast (08/18/2021 4:49 PM PRODUCTION PLANNER) Anatomical Region Laterality Modality Abdomen, Abdominal RST LOS, PET ARZ N/A Posi manny Emission Tomography (PET), LOS, Abdominal ARZ LOS, Nuclear Magnetic Resonance Medicine PET FLA LOS Specimen (Source) Anatomical Collection Method Collection Time Re ceived Time Location / / Volume Laterality 08/19/2021 7:28 AM PRODUCTION PLANNER Impressions 08/19/2021 10:12 AM PRODUCTION PLANNER - Right posterior hepatic dome lesion is typical for liver metastasis. - Stable treated pancreatic uncinate pro cess neoplasm. Refer to the most recent CT for dedicate d vascular staging. Narrative 08/19/2021 10:12 AM PRODUCTION PLANNER EXAM: ??PET MR ABDOMEN FOCUSED WITHOUT AND [...] cm mildly T2 hyperintense (14/10), DWI-r estricting (), rim-enhancing lesion (/) without gadoxetate disodium excre tion on hepato-biliary phase images (56), with corresponding FDG uptake o n same-day PET. Small ill-defined area of restricted diffusion (16/105) without gadoxetate disodium excretion along the right posterior-inferior hepatic lobe (1 ), without accompanying FDG uptake on same-day PET. [...] cm mildly T2 hyperintense (14/10), DWI-r estricting (16/), rim-enhancing lesion (7/23) without gadoxetate disodium excre tion on hepato-biliary phase images (), with corresponding FDG uptake o n same-day PET. Small ill-defined area of restricted diffusion (16/105) without gadoxetate disodium excretion along the right posterior-inferior hepatic lobe (1 8133), without accompanying FDG uptake on same-day PET. [...] CT for dedicate d vascular staging. Vladislav Zarco M.D. [facility] PROCEDURES PET MR Skull to Thigh Survey FDG (08/18/2021 4:49 PM PRODUCTION PLANNER) Anatomical Region Laterality Modality Body, Nuclear Medicine PET RST LOS, N/A Posi manny Emission Tomography (PET), PET ARZ LOS, Nuclear Medicine PET FLA Ma gnetic Resonance LOS, Nuclear Medicine Specimen (Source) Anatomical Collection Method Collection Time Re ceived Time Location / / Volume Laterality 08/19/2021 8:53 AM PRODUCTION PLANNER Impressions 08/19/2021 1:28 PM PRODUCTION PLANNER FDG avid pancreatic uncinate adenocarcinoma with a new FDG avid posterior right hepatic lobe lesion, hig hly suspicious for metastasis. Narrative 08/19/2021 1:28 PM PRODUCTION PLANNER EXAM: PET MR SKULL TO THIGH SURVEY FDG Serum glucose at time of F-18 FDG inject ion was 85 mg/dL. RADIOPHARMACEUTICAL/MEDS: Route: intravenous fludeoxyglucose F 18 injection PRISON (FDG F-18),10.25 millicurie TECHNIQUE: F-18 FDG PET/MR [...] RADIOPHARMACEUTICAL/MEDS: Route: intravenous fludeoxyglucose F 18 injection PRISON (FDG F-18),10.25 millicurie TECHNIQUE: F-18 FDG PET/MR [...] Neoplasm Of Pancreas (HCC) - P rimary Other Specified Diseases Of Liver Lesion Liver Malignant Neoplasm Of Pancreas (HCC) Lesion Liver Other Specified Diseases Of Liver documented in this encounter Additional Health Concerns Infection Onset Date Last Indicated Resolved Time COVID19 Pending 08/22/2021 08/22/2021 08/22/2021 1:55 PM PRODUCTION PLANNER documented as of this encounter Care Teams Educational Recruiter Relationship Specialty Start Date End Date Elsewhere, Pcp PCP - General Family Medicine 08/12/20 documented as of this encounter
--- OUTSIDE RECORDS SUMMARY | 2022-06-18 16:09 | XMS_ITS | Encounter Summary ---
:1965 Author Organization [facility] Address [address] [place] [address] Care Team Providers Name Role Phone Elsewhere, Pcp Primary Care Provider Unavailable Encounter Details Date Type Department Care Team Description 08/23/2021 Lab Department of Infusion Vladislav Zarco Malignant Neoplasm Of Therapy in Randall Perdomo M.D. Pancreas (HCC) [address] [place] [phone] (Wo rk) Social History Tobacco Use Types [...] How often do you attend mandaeism or mandaen services? 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 [address] [place] [address] [phone] (Wo rk) 06/22/2022 Infusion Oncology Maria Del Rosario Gomez APRN, C.N .P., M.S. [address] [place] [address] [phone] (Wo rk) 06/29/2022 Lab Laboratory Medicine Maria Del Rosario Gomez AP RN, C.N.P., M.S. [address] [place] [address] [phone] (Wo rk) 06/29/2022 Infusion Oncology Maria Del Rosario Gomez APRN, C.N .P., M.S. [address] [place] [address] [phone] (Wo rk) documented as of this encounter Visit Diagnoses Diagnosis Malignant Neoplasm Of Pancreas (HCC) documented in this encounter Care Teams Occ Ther Relationship Specialty Start Date End Date Elsewhere, Pcp PCP - General Family Medicine 08/12/20 documented as of this encounter
--- OUTSIDE RECORDS SUMMARY | 2022-06-18 16:09 | XMS_ITS | Encounter Summary ---
:1965 Author Organization [facility] Address [address] [place] [address] Care Team Providers Name Role Phone Elsewhere, Pcp Primary Care Provider Unavailable Reason for Visit Reason Comments question about appt 08/18 Encounter Details Date Type Department Care Team Description 08/17/2021 Clinical Department of arnulfo Parry Communication Oncology in Vy Hernandez, appt 08/18 [facility] [address] [facility] [address] [place] [phone] Social History Tobacco Use Types Packs/Day Years [...] How often do you attend synagogue or anglican services? 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 - 08/17/2021 11:59 AM JOURNEYMAN PIPEFITTER Per Dr. Zarco - PET scan ordered as the biopsy cannot be done. Can move out return to after PETscan is scheduled. PET/MR scheduled for 08/18 afternoon, Dr. Zarco to call 08/19 8:00 AM. DOS to call and let him know. NEYMAN PIPEFITTER Telephone Encounter - Marcela Albright - 08/17/2021 11:14 AM CST Do we have a valid auth to speak with caller? yes Reason for call: Patient has appointment scheduled with Dr. Zarco on 08/18. This is to discuss results from ultrasound biopsy patient had done 08/16 but they couldn't where it was at time of ultrasound so the procedure wasn't done. He mentioned that Dr. Zarco wants him to have a PET scan whichis ordered but not scheduled yet. He is wondering what to do. He doesn't want to come for appointment tomorrow for nothing. If he can get PET scan tomorrow and then have appointment with Dr. Zarco, he would be ok with that. Patient would like a call back today to let him know if he should be coming tomorrow or not. Thank you, Marcela RST [facility]C [facility] POD 1 NEYMAN PIPEFITTER documented in this encounter Plan of Treatment Upcoming Encounters Date Type Specialty Care Team Description 06/22/2022 Lab Laboratory Medicine Maria Del Rosario Gomez AP RN, C.N.P., M.S. [address] [place] [address] [phone] (Wo rk) 06/22/2022 Infusion Oncology Maria Del Rosario Gomez APRN, C.N .P., M.S. [address] [place] [address] [phone] (Wo rk) 06/29/2022 Lab Laboratory Medicine Maria Del Rosario Gomez AP RN, C.N.P., M.S. [address] [place] [address] [phone] (Wo rk) 06/29/2022 Infusion Oncology Maria Del Rosario Gomez APRN, C.N .P., M.S. [address] [place] [phone] (Wo rk) documented as of this encounter Visit Diagnoses Not on filedocumented in this encounter Care Teams Director Counseling Bureau Relationship Specialty Start Date End Date Elsewhere, Pcp PCP - General Family Medicine 08/12/20 documented as of this encounter
--- OUTSIDE RECORDS SUMMARY | 2022-06-18 16:09 | XMS_ITS | Encounter Summary ---
:1965 Author Organization [facility] Address [address] [place] [address] Care Team Providers Name Role Phone Elsewhere, Pcp Primary Care Provider Unavailable Reason for Referral MRI/CAT/PET Scan (Routine) - Closed Specialty Diagnoses / Procedures Referred By Contact Refer red To Contact Radiology Diagnoses Malignant Neoplasm Of Pancreas (HCC) Vladislav Zarco M.D. [facility] Procedures MR Liver Biopsy with Imaging Guidance [place] [facility] [address] [place] [address] Referral ID Status Reason Start Date Expiration Date Visits Requ ested Visits Authorized [id number] Closed 08/23/2021 08/23/2022 1 1 IOVASCULAR TECHNICIAN Outpatient (Routine) - Closed Specialty Diagnoses / Procedures Referred By Contact Refer red To Contact Oncology Diagnoses Malignant Neoplasm Of Pancreas (HCC) Vladislav Zarco M.D. [facility] [address] [place] [address] Referral ID Status Reason Start Date Expiration Date Visits Requ ested Visits Authorized [id number] Closed 08/23/2021 08/23/2022 1 1 IOVASCULAR TECHNICIAN Outpatient (Routine) - Closed Specialty Diagnoses / Procedures Referred By Contact Refer red To Contact Oncology Diagnoses Malignant Neoplasm Of Pancreas (HCC) Vladislav Zarco M.D. [facility] [address] [place] [phone] Referral ID Status Reason Start Date Expiration Date Visits Requ ested Visits Authorized [id number] Closed 08/23/2021 08/23/2022 1 1 IOVASCULAR TECHNICIAN Outpatient (Routine) - Closed Specialty Diagnoses / Procedures Referred By Contact Refer red To Contact Oncology Diagnoses Malignant Neoplasm Of Pancreas (HCC) Vladislav Zarco M.D. [facility] [address] [place] [phone] Referral ID Status Reason Start Date Expiration Date Visits Requ ested Visits Authorized [id number] Closed 08/23/2021 08/23/2022 1 1 IOVASCULAR TECHNICIAN Outpatient (Routine) - Closed Specialty Diagnoses / Procedures Referred By Contact Refer red To Contact Diagnoses Malignant Neoplasm Of Pancreas (HCC) Vladislav Zarco M.D. [facility] Procedures ECG 12 Lead [address] [place] [phone] Referral ID Status Reason Start Date Expiration Date Visits Requ ested Visits Authorized [id number] Closed 08/23/2021 08/23/2022 1 1 IOVASCULAR TECHNICIAN Outpatient (Routine) - Closed Specialty Diagnoses / Procedures Referred By Contact Refer red To Contact Diagnoses Malignant Neoplasm Of Pancreas (HCC) Vladislav Zarco M.D. [facility] Procedures ECG 12 Lead [address] [place] [phone] Referral ID Status Reason Start Date Expiration Date Visits Requ ested Visits Authorized [id number] Closed 08/23/2021 08/23/2022 1 1 IOVASCULAR TECHNICIAN Outpatient (Routine) - Closed Specialty Diagnoses / Procedures Referred By Contact Refer red To Contact Diagnoses Malignant Neoplasm Of Pancreas (HCC) Vladislav Zarco M.D. [facility] Procedures ECG 12 Lead [address] [place] [phone] Referral ID Status Reason Start Date Expiration Date Visits Requ ested Visits Authorized [id number] Closed 08/23/2021 08/23/2022 1 1 IOVASCULAR TECHNICIAN Encounter Details Date Type Department Care Team Description 08/20/2021 Orders Only Department of Oncology Tamara Escobar Malignant Neoplasm Of in [facility] [phone] Pancreas (HCC) (Primary [address] [facility] (Work) Dx) [place] [phone] Social History Tobacco Use Types Packs/Day Years [...] How often do you attend orthodoxy or oriental orthodox services? 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 [address] [place] [phone] (Wo rk) 06/22/2022 [facility] C.N .P., M.S. [address] [place] [phone] (Wo rk) 06/29/2022 Lab [facility], C.N.P., M.S. [address] [place] [phone] (Wo rk) 06/29/2022 [facility] APRN, Remy.N .P., M.S. [address] [place] [phone] (Wo rk) Scheduled Orders Name Type Priority Associated Diagnoses Order S chedule Lab Additional Research Lab Routine Malignant Neoplas m Of Expected: 08/23/2021, Testing: Min # Research Pancreas (HCC) Ex usha: 11/21/2022 Cores or Volume:1 - clinical; 2 - for research guage per IR Scheduled Referrals Name Type Priority Associated Order Schedule Diagnoses Oncology office Outpatient Referral Routine Malignant Neoplasm Expected: visit (clinic) Of Pancreas (HCC) 08/27/20 21, General; GIH Expires: Pancreatic 11/18/2022 Oncology office Outpatient Referral Routine Malignant Neoplasm Expected: visit (clinic) Of Pancreas (HCC) 09/09/20 21, General; GIH Expires: Pancreatic 11/18/2022 Oncology office Outpatient Referral Routine Malignant Neoplasm Expected: visit (clinic) Of Pancreas (HCC) 09/24/19 22, General; GIH Expires: Pancreatic 11/18/2022 documented as of this encounter Results Miscellaneous Research, B (08/27/2021 9:02 AM CARDIOVASCULAR TECHNICIAN) P athologist Signature Number of 3 08/27/2021 HSS Specimens 9:02 AM CARDIOVASCULAR TECHNICIAN Specimen Anatomical Collection Method Collection Time Receive d Time (Source) Location / / Volume Laterality Varies (Blood, 08/27/2021 9:02 AM 021 9:02 Venous) CARDIOVASCULAR TECHNICIAN AM CARDIOVASCULAR TECHNICIAN Vladislav Zarco M.D. LAB RESEARCH NO RESULT VERENICE MCFADDEN Performing Organization Address City/State/ZIP Code Phon e Number [facility] - [address] [place], [place] [address] [facility] [address] [facility] [place] [address] MR Liver Biopsy with Imaging Guidance (08/23/2021 5:08 PM CARDIOVASCULAR TECHNICIAN) Anatomical Region Laterality Modality Abdomen, Abdominal RST LOS, Abdominal FLA LOS, Vascular N/A Magnetic Resonance Interventional ARZ LOS Specimen (Source) Anatomical Collection Method Collection Time Re ceived Time Location / / Volume Laterality 08/23/2021 5:12 PM CARDIOVASCULAR TECHNICIAN Impressions 08/23/2021 5:16 PM CARDIOVASCULAR TECHNICIAN Successful MR guided liver biopsy. Preprocedure: Patient [...] fellows hiro griffith discussed. Sedation provided by MOLECULAR TECHNOLOGIST. NR Narrative 08/23/2021 5:16 PM CARDIOVASCULAR TECHNICIAN Summary: ??MR guided liver biopsy Guidance: MR [...] research (3) and pathology (2) for analysis. [place] were removed and gel-f oam injected. Final [...] research (3) and pathology (2) for analysis. [place] were removed and gel-f oam injected. Final [...] fellows hiro griffith discussed. Sedation provided by MOLECULAR TECHNOLOGIST. NR Vladislav Zarco M.D. IMG MRI PROCEDURES ECG 12 Lead (08/23/2021 11:43 AM CARDIOVASCULAR TECHNICIAN) P athologist Signature Ventricular Rate 64 BPM MUSE ECG/Min [place] Interval 174 ms MUSE QRSD Interval 100 ms MUSE QT Interval 404 ms MUSE QTC Interval 416 ms MUSE P Orange 38 degrees MUSE R Orange 39 degrees MUSE T Wave Orange 23 degrees MUSE Specimen Anatomical Collection Method Collection Time Receive d Time (Source) Location / / Volume Laterality 08/23/2021 11:43 08/23/2021 AM CARDIOVASCULAR TECHNICIAN 11:55 AM CARDIOVASCULAR TECHNICIAN Impressions MUSE - 08/23/2021 11:55 AM CARDIOVASCULAR TECHNICIAN Normal sinus rhythm Normal ECG When compared with ECG of 23-AUG-2021 11 :40, No significant change was found Reviewed by HAROON Gonzales Narrative This result has an attachment that is no t available. Procedure Note Atul Higuera Jr., M.D. - 08/23/2021For matting of this note might be different from the original. IMPRESSION: Normal sinus rhythm Normal ECG When compared with ECG of 23-AUG-2021 11 :40, No significant change was found Reviewed by HAROON Gonzales Vladislav Zarco M.D. ECG ORDERABLES Performing Organization Address City/State/[facility] Code Phon e Number MUSE MUSE NA ECG 12 Lead (08/23/2021 11:40 AM CARDIOVASCULAR TECHNICIAN) P athologist Signature Ventricular Rate 61 BPM MUSE ECG/Min [place] Interval 174 ms MUSE QRSD Interval 102 ms MUSE QT Interval 410 ms MUSE QTC Interval 412 ms MUSE P Orange 51 degrees MUSE R Orange 42 degrees MUSE T Wave Orange 25 degrees MUSE Specimen Anatomical Collection Method Collection Time Receive d Time (Source) Location / / Volume Laterality 08/23/2021 11:40 08/23/2021 AM CARDIOVASCULAR TECHNICIAN 11:55 AM CARDIOVASCULAR TECHNICIAN Impressions MUSE - 08/23/2021 11:55 AM CARDIOVASCULAR TECHNICIAN Normal sinus rhythm Normal ECG When compared with ECG of 23-AUG-2021 11 :39, No significant change was found Reviewed by HAROON Goznales Narrative This result has an attachment that is no t available. Procedure Note Atul Higuera Jr., M.D. - 08/23/2021For matting of this note might be different from the original. IMPRESSION: Normal sinus rhythm Normal ECG When compared with ECG of 23-AUG-2021 11 :39, No significant change was found Reviewed by HAROON Gonzales Vladislav Zarco M.D. ECG ORDERABLES Performing Organization Address City/State/ZIP Code Phon e Number MUSE MUSE NA ECG 12 Lead (08/23/2021 11:39 AM CARDIOVASCULAR TECHNICIAN) P athologist Signature Ventricular Rate 63 BPM MUSE ECG/Min [place] Interval 166 ms MUSE QRSD Interval 104 ms MUSE QT Interval 402 ms MUSE QTC Interval 411 ms MUSE P Orange 44 degrees MUSE R Orange 46 degrees MUSE T Wave Orange 31 degrees MUSE Specimen Anatomical Collection Method Collection Time Receive d Time (Source) Location / / Volume Laterality 08/23/2021 11:39 08/23/2021 AM CARDIOVASCULAR TECHNICIAN 11:53 AM CARDIOVASCULAR TECHNICIAN Impressions MUSE - 08/23/2021 11:53 AM CARDIOVASCULAR TECHNICIAN Normal sinus rhythm Normal ECG When compared with ECG of 01-JAN-2021 06 :47, T waves have changed Reviewed by HAROON Gonzales Narrative This result has an attachment that is no t available. Procedure Note Atul Higuera Jr., M.D. - 08/23/2021For matting of this note might be different from the original. IMPRESSION: Normal sinus rhythm Normal ECG When compared with ECG of 01-JAN-2021 06 :47, T waves have changed Reviewed by HAROON Gonzales Vladislav Zarco M.D. ECG ORDERABLES Performing Organization Address City/State/ZIP Code Phon e Number MUSE MUSE NA UDP-Glucuronosyl Transferase 1A1 TA Repeat Genotype, UGT1A1, Varies (08/23/2021 11:23 AM CARDIOVASCULAR TECHNICIAN) Component Value Ref Test Analysis Performed Pathologis t Range Method Time At Signature UGT1A1 Genotype No variants detected 08/26/2021 DT L 9:17 AM CARDIOVASCULAR TECHNICIAN UGT1A1 Phenotype Normal (extensive) 08/26/2021 DTL metabolizer 9:17 AM CARDIOVASCULAR TECHNICIAN Method Genotyping is performed using a PCR-based 5'-nuclease 08/26/2021 DTL assay. Fluorescently labeled detection probes anneal to the 9:17 AM target DNA. PCR is used to amplify the segment of DNA that CARDIOVASCULAR TECHNICIAN contains the polymorphism. If the detection probe is an exact match to the target DNA, the 5'-nuclease polymerase degrades the probe, the rn field dye is released from the effects of the quencher dye, and a fluorescent signal is detected. Genotypes are assigned based on the allele-specific fluorescent signals that are detected. (TaqMan SNP Genotyping Assays User Guide, Content360) Disclaimer Targeted analysis of the following UGT1A1 alleles was 08/26/2021 DTL performed by a polymerase chain reaction (PCR)-based 9:17 AM 5'-nuclease assay using fluorescently labeled detection CARDIOVASCULAR TECHNICIAN probes. The variants detected (c.-2951A>G, c.-364C>T, c.-106T>C) are in linkage disequilibrium with the TA repeat alleles, TA5 or *36: c.-41_-40delTA ([id number]),TA7 or *28: c.-41_-40dupTA (g. [id number]). The cDNA positions are provided using [id number] as a reference; genomic coordinates are based on GRCh37. In addition, this assay detects *6 (c.211G>A). ??The TA7 or *28: c.-41_-40dupTA (g. [id number]) and the TA8 or *37: c.-43_-40dupTATA ([id number]) are both in linkage disequilibrium with c.-2951A>G [...] associated with the TA5 or *36: c.-41_-40delTA ([id number]) variant. This test does not detect or report variants other than the TA5 (*36), TA7 (*28), and *6 alleles. Numerous additional variants have been described that impair UGT1A1 activity. Results should be interpreted in the context of clinical findings, family history, and other laboratory testing. A negative test result does not exclude risk for adverse drug reactions with [id number] drugs or congenital unconjugated hyperbilirubinemia. If results [...] developed and its performance characteristics determined by [facility] in a manner consistent with CLIA requirements. This test has not been cleared or approved by the U.S. Food and Drug Administration. Reviewed by Sariah Shepherd, 08/26/2021 DTL Ph.D. 9:17 AM CARDIOVASCULAR TECHNICIAN Interpretation This genotype is not associated with increased risk for 08/26/2021 DTL severe neutropenia while taking irinotecan and is not 9:17 AM associated with increased risk for toxicity and/or CARDIOVASCULAR TECHNICIAN hyperbilirubinemia while taking atazanavir, belinostat, dolutegravir, nilotinib, and pazopanib. The medication label should be consulted for dosing recommendations. This genotype is not associated with Gilbert syndrome-related unconjugated hyperbilirubinemia. Specimen Anatomical Collection Method Collection Time Receive d Time (Source) Location / / Volume Laterality Varies (Blood, 08/23/2021 11:23 Venous) AM CARDIOVASCULAR TECHNICIAN 12:43 PM CARDIOVASCULAR TECHNICIAN Narrative This result has an attachment that is no t available. Vladislav Zarco M.D. LAB GENETIC TESTING Performing Organization Address City/State/ZIP Code Phon e Number [facility] - [address] [place], [place] [address] [facility] [place] [address] [facility] [place] [address] documented in this encounter Visit Diagnoses Diagnosis Malignant Neoplasm Of Pancreas (HCC) - P rimary Lesion Liver Malignant Neoplasm Of Pancreas (HCC) documented in this encounter Additional Health Concerns Infection Onset Date Last Indicated Resolved Time COVID19 Pending 08/22/2021 08/22/2021 08/22/2021 1:55 PM CARDIOVASCULAR TECHNICIAN documented as of this encounter Care Teams Stitching Machine Feeder Or Offbearer Relationship Specialty Start Date End Date Elsewhere, Pcp PCP - General Family Medicine 08/12/20 documented as of this encounter
--- OUTSIDE RECORDS SUMMARY | 2022-06-18 16:09 | XMS_ITS | Encounter Summary ---
:1965 Author Organization [facility] Address [address] [place] [phone] Care Team Providers Name Role Phone Elsewhere, Pcp Primary Care Provider Unavailable Reason for Referral Outpatient (Routine) - Closed Specialty Diagnoses / Procedures Referred By Contact Refer red To Contact Diagnoses Lesion Liver Trell Chris M.D., [facility] Procedures US Assisted Guidance Ph.D. [address] [place] [phone] Referral ID Status Reason Start Date Expiration Date Visits Requ ested Visits Authorized [id number] Closed 08/19/2021 08/19/2022 1 1 NTURE CHALLENGE INSTRUCTOR MRI/CAT/PET Scan (Routine) - Closed Specialty Diagnoses / Procedures Referred By Contact Refer red To Contact Radiology Diagnoses Lesion Liver Trell Chris M.D., [facility] Procedures MR Liver Biopsy with Imaging Guidance [place] [facility] Ph.D. [address] [place] [phone] Referral ID Status Reason Start Date Expiration Date Visits Requ ested Visits Authorized [id number] Closed 08/19/2021 08/19/2022 1 1 NTURE CHALLENGE INSTRUCTOR Encounter Details Date Type Department Care Team Description 08/19/2021 Orders Only Department of Tori Nelson Lesion Liver (Primary Radiology, [place] RRiazNRiaz Dx) Building, in [address] [place], [place] 200 [facility] [address] [place] [phone] Social History Tobacco Use Types Packs/Day Years [...] How often do you attend episcopalian or catholic services? Never 01/15/2021 Do you [...] at Date Recorded Male 08/18/2021 2:55 PM ADVENTURE CHALLENGE INSTRUCTOR documented as of this encounter Plan of Treatment Upcoming Encounters Date Type Specialty Care Team Description 06/22/2022 Lab Laboratory Medicine Maria Del Rosario Gomez AP RN, C.N.P., M.S. [address] [place] [phone] (Mj godoy) 06/22/2022 Infusion Oncology Maria Del Rosario Gomez APRN, C.N .P., M.S. [address] [place] [phone] (Mj godoy) 06/29/2022 Lab Laboratory Medicine Maria Del Rosario Gomez AP RN, C.N.P., M.S. [address] [place] [phone] (Mj godoy) 06/29/2022 Infusion Oncology Maria Del Rosario Gomez GUERO Sanchez C.N .P., M.S. [address] [place], [place] [phone] (Wo rk) documented as of this encounter Results US Assisted Guidance (08/23/2021 5:43 PM ADVENTURE CHALLENGE INSTRUCTOR) Anatomical Region Laterality Modality Procedural, Ultrasound RST LOS, Ultrasound ARZ LOS, Procedur e N/A Ultrasound FLA LOS Specimen (Source) Anatomical Collection Method Collection Time Re ceived Time Location / / Volume Laterality 08/23/2021 5:12 PM ADVENTURE CHALLENGE INSTRUCTOR Impressions 08/23/2021 5:16 PM ADVENTURE CHALLENGE INSTRUCTOR Successful MR guided liver biopsy. Preprocedure: Patient [...] fellows hiro griffith discussed. Sedation provided by ANALYTICAL DATA SCIENTIST. NR Narrative 08/23/2021 5:16 PM ADVENTURE CHALLENGE INSTRUCTOR Summary: ??MR guided liver biopsy Guidance: MR [...] research (3) and pathology (2) for analysis. [place]ola were removed and gel-f oam injected. Final [...] research (3) and pathology (2) for analysis. [place]ola were removed and gel-f oam injected. Final images demonstrate no evidence of hematoma. Patient was bro ught out of the MR suite and extubated. Patient tired the procedure well with no immediate complications. IMPRESSION: Successful MR guided liver biopsy. Preprocedure: Patient seen, evaluated, a nd history reviewed. Discussed risks, benefits, alternatives for procedure, an phyllis obtained informed consent. Patient understands information and [...] fellows hiro griffith discussed. Sedation provided by ANALYTICAL DATA SCIENTIST. NR Trell Chris M.D., Ph.D. IMG US PROCEDURES MR Liver Biopsy with Imaging Guidance (08/23/2021 5:08 PM ADVENTURE CHALLENGE INSTRUCTOR) Anatomical Region Laterality Modality Abdomen, Abdominal RST LOS, Abdominal FLA LOS, Vascular N/A Magnetic Resonance Interventional ARZ LOS Specimen (Source) Anatomical Collection Method Collection Time Re ceived Time Location / / Volume Laterality 08/23/2021 5:12 PM ADVENTURE CHALLENGE INSTRUCTOR Impressions 08/23/2021 5:16 PM ADVENTURE CHALLENGE INSTRUCTOR Successful MR guided liver biopsy. Preprocedure: Patient seen, evaluated, a nd history reviewed. Discussed risks, benefits, alternatives for procedure, juanita ferguson obtained informed consent. Patient understands information and [...] fellows hiro griffith discussed. Sedation provided by ANALYTICAL DATA SCIENTIST. NR Narrative 08/23/2021 5:16 PM ADVENTURE CHALLENGE INSTRUCTOR Summary: ??MR guided liver biopsy Guidance: MR guided Organ: Liver Biopsy gauge: 18-gauge Technique: Patient was brought into the MR anteroo where anesthesia was initiated. Patient was [...] research (3) and pathology (2) for analysis. Neola were removed and gel-f oam injected. Final images demonstrate no evidence of hematoma. Patient was bro ught out of the MR suite and extubated. Patient tired the procedure well with no immediate complications. Procedure Note Trell Chris M.D., Ph.D. - 08/23/20 21 Summary: MR guided liver biopsy Guidance: MR guided Organ: Liver Biopsy gauge: 18-gauge Technique: Patient was brought into the MR anteroo where anesthesia was initiated. Patient was [...] research (3) and pathology (2) for analysis. Neola were removed and gel-f oam injected. Final [...] fellows hiro griffith discussed. Sedation provided by ANALYTICAL DATA SCIENTIST. NR Trell Chris M.D., Ph.D. IMG MRI PROCEDURES SARS CoV-2 RNA, PCR, Varies Asymptomatic (08/22/2021 9:28 AM ADVENTURE CHALLENGE INSTRUCTOR) [facility] Method Time Signature SARS CoV-2 Swab, 08/22/2021 DTL RNA, PCR, Nasopharynx 1:55 PM ADVENTURE CHALLENGE INSTRUCTOR Source SARS CoV-2 Undetected Undetected 08/22/2021 DTL RNA, PCR 1:55 PM ADVENTURE CHALLENGE INSTRUCTOR Comment: SARS-CoV-2 RNA absent. This result does [...] Drug Administration an d is used per medical education specialist's instructions. Performance characteristics were verified by [facility] in a manner consistent with CLIA requirements. Visit the CDC website: https://www.cdc.g ov/coronavirus/ for the most recent guidelines on Coron avirus testing. Fact Sheet for Healthcare Providers: https://www.fda.gov/media/565041/downloa d Fact Sheet for Patients: https://www.fda.gov/media/858991/downloa d Specimen Anatomical Collection Method Collection Time Receive d Time (Source) Location / / Volume Laterality Varies 08/22/2021 9:28 AM (Nasopharynx) ADVENTURE CHALLENGE INSTRUCTOR 10:32 AM ADVENTURE CHALLENGE INSTRUCTOR Trell Chris M.D., Ph.D. LAB MICROBIOLOGY - GENERAL ORDERABLES Performing Organization Address City/State/ZIP Code Phon e Number [facility] - [address] [place], [place] [address] [facility] [place] [address] [facility] [place] [address] documented in this encounter Visit Diagnoses Diagnosis Lesion Liver - Primary Lesion Liver Lesion Liver Malignant Neoplasm Of Pancreas (HCC) documented in this encounter Additional Health Concerns Infection Onset Date Last Indicated Resolved Time COVID19 Pending 08/22/2021 08/22/2021 08/22/2021 1:55 PM ADVENTURE CHALLENGE INSTRUCTOR documented as of this encounter Care Teams Security Professionals Relationship Specialty Start Date End Date Elsewhere, Pcp PCP - General Family Medicine 08/12/20 documented as of this encounter
--- OUTSIDE RECORDS SUMMARY | 2022-06-18 16:09 | XMS_ITS | Encounter Summary ---
:1965 Author Organization [facility] Address [address] [place] [address] Care Team Providers Name Role Phone Elsewhere, Pcp Primary Care Provider Unavailable Reason for Visit Reason Comments Land Measurer Disability Form Encounter Details Date Type Department Care Team Description 08/24/2021 Clinical Department of [facility] Communication Oncology in [place], Disability Fo [facility], RN[address] [place] [phone] Social History Tobacco Use Types Packs/Day Years [...] How often do you attend shinto or catholic services? Never 01/15/2021 Do you [...] Date Recorded Male 08/18/2021 2:55 PM TECHNICAL EXPERT documented as of this encounter Plan of Treatment Upcoming Encounters Date Type Specialty Care Team Description 06/22/2022 Lab Laboratory Medicine Maria Del Rosario Gomez AP RN, C.N.P., M.S. [address] [place] [address] [phone] (Wo rk) 06/22/2022 Infusion Oncology Maria Del Rosario Gomez APRN, C.N .P., M.S. [address] [place] [address] [phone] (Wo rk) 06/29/2022 Lab Laboratory Medicine Maria Del Rosario Gomez AP RN, C.N.P., M.S. [address] [place] [address] [phone] (Wo rk) 06/29/2022 Infusion Oncology Maria Del Rosario Gomez APRN, C.N .P., M.S. [address] [place] [address] [phone] (Wo rk) documented as of this encounter Visit Diagnoses Not on filedocumented in this encounter Care Teams Metal Shaping Machine Operator Relationship Specialty Start Date End Date Elsewhere, Pcp PCP - General Family Medicine 08/12/20 documented as of this encounter
--- OUTSIDE RECORDS SUMMARY | 2022-06-18 16:09 | XMS_ITS | Encounter Summary ---
:1965 Author Organization [facility] Address [address] [place] [address] Care Team Providers Name Role Phone Elsewhere, Pcp Primary Care Provider Unavailable Reason for Visit Auth/Cert Specialty Diagnoses / Procedures Referred By Contact Refer red To Contact Diagnoses Lesion Liver Malignant Neoplasm Of Pancreas (HCC) Procedures MR LIVER BIOPSY WITH IMAGING GUIDANCE MR LIVER BIOPSY WITH IMAGING GUIDANCE HOSP OP Referral ID Status Reason Start Date Expiration Date Visits Requ ested Visits Authorized [id number] 1 1 Encounter Details Date Type Department Care Team Description 08/23/2021 Anesthesia Event Department of Radiology, La Pedro, GUERO, HOUSEKEEPER/CUSTODIAN/LAUNDRY WORKER, DNAP [address] [place] [address] [facility] in [facility], Amina Her M.D. [address] [place] [phone] [place], [place] [address] [place] [address] Anesthesia Record Procedure Summary Procedure Name Responsible Anesthesia Start Anesthesia Stop Time Anesthesiologist Time MR LIVER BIOPSY La Burris, GUERO, 08/23/21 1526 08/23/21 1736 WITH IMAGING HOUSEKEEPER/CUSTODIAN/LAUNDRY WORKER DNAP GUIDANCE Events Date Time Event Comment 08/23/2021 1526 An Start Machine/Equipmen t Checked Infection Precautions Foll owed Procedure/Site Verified NPO Sta tus Verified Supine Standard ASA Mon itors Applied 1532 An Induction 1539 An Intubation 1539 Turnover to Proceduralist 1547 Anesthesia Time Out 1557 Image Start 1558 Proc Start 1654 Image End 1654 Proc Fin 1700 Turnover to ANE Staff 1714 Airway Removal Criteria Met 1714 Extubation/Airway Removed 1716 an stop data 1736 An End I completed my h andoff to the receiving staff during [facility] we 1. Identified the patient 2. Ident ified the responsible provider 3. Revi ewed the pertinent medical history 4. Discussed the surgical course 5. Review ed intra-op anesthesia management and i ssues during anesthesia 6. Set expectati ons for post-procedure period 7. Allowe d opportunity for questions and ac knowledgement of understanding. Name Total fentanyl injection 50 mcg/mL 150 mcg lidocaine 2% (mg) injection 60 mg propofol 10 mg/mL 150 mg vecuronium 10 mg injection 10 mg phenylephrine 100 mcg/mL injection 400 mcg ePHEDrine PF 5 mg/mL syringe injection 25 mg ondansetron 4 mg/2 mL injection 4 mg sugammadex 100 mg/mL injection 200 mg levoFLOXacin 500 mg IVPB 500 mg HYDROmorphone PF 2 mg/mL injection 0.4 mg Lactated Ringers Free Drip 700 mL Agents No agents on file. Blood No blood administrations on file. Lines, Drains, and Airways Type Details Placement Removal Implanted Port Single 11/05/20; 1225; Permanent 11/05/20 1225 by Lumen (tunneled, implanted); Raymond Escobedo P, R.N. Yes; Yes; Yes; Yes; Alcohol, Chlorhexidine (Preferred); Yes; Cap, Gloves, Gown, Large drape, Mask (Clinician), Mask (All others in room); N/A; Non-valved; Right; Chest; Power injectable; Securement dressing, Sutured; Dr. Wolf Puncture 08/23/21; 1657; No; 08/23/211657 by Abdomen; Right; Multiple Yasmeen Triplett, puncture sites from liver M.S.N., R.N. biopsy ETT Placement Date: 08/23/21; 08/23/211538 by 08/23 by Placement Time: 1538 La Burris, La Burris, (created via procedure SUPERVISOR CARTOGRAPHY, HOUSEKEEPER/CUSTODIAN/LAUNDRY WORKER, DNAP SUPERVISOR CARTOGRAPHY, CR NA, DNAP documentation); Mask Ventilation: Easy mask; Type: Standard ETT; Single Lumen Tube Size: 7.5 mm; Cuffed: Yes; Location: Oral; Grade View: Grade 1; Insertion Attempts: 1; Placement Verification: Bilateral breath sounds, Positive ETCO2, Symmetrical chest wall movement; Removal Date: 08/23/21; Removal Time: 1713 documented in this encounter Social History Tobacco [...] How often do you attend synagogue or mandaeism services? Never 01/15/2021 Do you belong to [...] at Date Recorded Male 08/18/2021 2:55 PM WINDOW CASER documented as of this encounter OR Notes Anesthesia Postprocedure Evaluation - La Burris APRN, CRNA, DNAP - 08/23/2021 5:36 PM CST Patient: Adam Campbell Procedure Summary Date: 08/23/21 Room / Location: Department of Radiology in [place], [place] Anesthesia Start: 1526 Anesthesia Stop: 173 Procedure: MR LIVER BIOPSY WITH IMAGING GUIDANCE Diagnosis: Lesion Liver Malignant Neoplasm Of Pancreas (HCC) Lesion Liver Malignant Neoplasm Of Pancreas (HCC) (Liver lesion) (IRB: [id number] Liver lesion) Scheduled Providers: La Burris APRN, CRNA, DNAP Responsible Provider: La Burris APRN, CRNA, DNAP Anesthesia Type: general ASA Status: 3 Anesthesia Type: general Last vitals Vitals Value Taken Time BP 138/91 08/23/21 1723 Temp 36.5 ??C 08/23/21 1722 Pulse 95 08/23/21 1736 Resp 17 08/23/21 1736 SpO2 96 % 08/23/216 Vitals shown include unvalidated device data. Please reference Vitals flowsheet for most recent vital signs. Anesthesia Post Evaluation Patient Disposition: dismissal Cardiovascular status: hemodynamics (HR & BP) acceptable Respiratory status: patent airway with spontaneous effort Temperature: normothermic Oxygen requirements: room air Level of consciousness: sedated but awakens easily Pain score: pain adequately controlled and/or at baseline Post Op nausea/vomiting: none Hydration status: euvolemic OW CASER Anesthesia Procedure Notes - La Burris APRN, CRNA, DNAP - 08/23/2021 4:04 PM CSTAssociated Order(s): Airway Airway Date/Time: 08/23/2021 3:39 PM Performed by: La Burris APRN, CRNA, DNAP Authorized by: La Burris APRN, CRNA, DNAP Patient location during procedure: OR / Procedure Area PROCEDURE DETAILS: Mask difficulty assessment: easy mask Final airway type: video laryngoscope Laryngeal Manipulation: no Final best view of glottic structures - Cormack/Lehane Score: grade 1 ETT location: oral VL device: glide scope Adult tube size: 7.5 Adult ETT distance at teeth/gum: 21 Oral tube type: standard ETT Cuffed: yes [...] Procedure outcome: successful Airway event: no complications ATTESTATION STATEMENT OW CASER Anesthesia Preprocedure Evaluation - Amina Caldwell M.D. - 08/23/2021 2:59 PM CST Preprocedure Anesthesia & H&P Assessment Procedure Summary Date/Time: 08/23/21 1300 Scheduled providers: La Burris, GUERO, HOUSEKEEPER/CUSTODIAN/LAUNDRY WORKER, DNAP Procedure: MR LIVER BIOPSY WITH IMAGING GUIDANCE Diagnosis: Lesion Liver [K76.9] Malignant Neoplasm Of Pancreas (HCC) [C25.9] Lesion Liver [K76.9] Malignant Neoplasm Of Pancreas (HCC) [C25.9] Indications: Liver lesion IRB: [id number] Liver lesion Location: Department of Radiology in [place], [place] Pertinent components of the patient's history [...] ONC (+) Malignant Neoplasm Of Pancreas (HCC) Other (+) Immunodeficiency Due To Drugs (HCC) (+) Malnutrition Severe Protein-Calorie (HCC) OBJECTIVE PHYSICAL EXAMINATION Airway (HEENT) Mallampati: II TM Distance: >3 FB Neck ROM: Full Mouth Opening: >3 cm Upper Lip Bite Test Class: I Cardiovascular Rhythm: Regular Rate: Normal Cardiovascular Assessment: cardiovascular normal Functional Capacity: >4 METS Pulmonary Pulmonary Assessment: Non labored General / Constitutional Constitutional Assessment: Thin General State of Health:: healthy appearing and calm Neurological Neurologic Assessment:??alert ASSESSMENT / PLAN ANESTHESIA PLAN ASA: 3 Anesthesia Plan: general Patient seen and allergies reviewed, anesthesia plan and risks discussed directly with patient /legal guardian or through an bank accountant. Risks/Benefits/Alternatives of Blood transfusion discussed with patient / legal guardian, including an opportunity to ask questions and/or decline some or all transfusion therapies. The patient / legalguardian consented to the use of all blood products, as deemed medically necessary Approval to Proceed: approved for anesthesia OW CASER documented in this encounter Plan of Treatment Upcoming Encounters Date Type Specialty Care Team Description 06/22/2022 Lab Laboratory Medicine Maria Del Rosario Gomez AP RN, C.N.P., M.S. [address] [place] [phone] (Wo rk) 06/22/2022 Infusion Oncology [facility] Maria Del Rosario Sanchez APRN, C.N .P., M.S. [address] [place], [place] [phone] (Mj rk) 06/29/2022 [facility], [facility] M.S. [address] [place] [phone] (Mj godoy) 06/29/2022 Infusion Oncology [facility] Maria Del Rosario Sanchez APRN, C.N .P., M.S. [address] [place] [phone] (Mj godoy) documented as of this encounter Procedures Procedure Name Priority Date/Time Associated Comments Diagnosis LDA ANE ENDOTRACHEAL Routine 08/23/2021 3:39 PM R esults for this AIRWAY WINDOW CASER procedure are i n the results section. documented in this encounter Results LDA ANE ENDOTRACHEAL AIRWAY (08/23/2021 3:39 PM WINDOW CASER) Narrative La Burris APRN, HOUSEKEEPER/CUSTODIAN/LAUNDRY WORKER, DNAP - 3:39 PM WINDOW CASER La Burris APRN HOUSEKEEPER/CUSTODIAN/LAUNDRY WORKER, DNAP ? 08/23/2021 ??4:04 PM Airway Date/Time: 08/23/2021 3:39 PM Performed by: La Burris APRN, CR NA, DNAP Authorized by: La Burris APRN, C RNA, DNAP Patient location during procedure: OR / Procedure Area PROCEDURE DETAILS: Mask difficulty assessment: easy mask Final airway type: video laryngoscope Laryngeal Manipulation: no ?? Final best view of glottic structures - Cormack/Lehane Score: grade 1 ETT location: oral VL device: glide scope Adult tube size: 7.5 Adult ETT distance at teeth/gum: 21 Oral tube type: standard ETT Cuffed: yes [...] outcome: successful ?? Airway event: no complications ATTESTATION STATEMENT La Burris SUPERVISOR CARTOGRAPHY, HOUSEKEEPER/CUSTODIAN/LAUNDRY WORKER, DNAP ANESTHESIA ORDERABLES documented in this encounter Visit Diagnoses Not on filedocumented in this encounter Administered Medications Inactive Administered Medications - up to 3 most recent administrations Medication Order MAR Action Action Date Dose Rate Site ePHEDrine (PF) injection Given 08/23/2021 4:20 PM WINDOW CASER 10 mg intravenous, As needed, Starting on Mon08/23/21 at 1609, Anesthesia Intra-op Given 08/23/2021 4:09 PM WINDOW CASER 15 mg fentaNYL injection (SUBLIMAZE) Given 08/23/2021 3:58 PM WINDOW CASER 100 mcg intravenous, As needed, Starting on Mon08/23/21 at 1532, Anesthesia Intra-op Given 08/23/2021 3:32 PM WINDOW CASER 50 mcg HYDROmorphone (PF) injection (DILAUDID) Given 08/23/2021 4:28 PM WINDOW CASER 0.4 mg intravenous, As needed, Starting on Mon08/23/21 at 1628, Anesthesia Intra-op lactated ringers New Bag 08/23/2021 3:32 PM WINDOW CASER intravenous, Continuous Infusion: Per Instructions PRN, Starting on Mon08/23/21 at 1532, Anesthesia Intra-op levoFLOXacin in D5W IVPB (LEVAQUIN) Given 08/23/2021 3:50 PM WINDOW CASER 500 mg intravenous, Administer over 60 Minutes, As needed, Starting on Mon08/23/21 at 1550, Anesthesia Intra-op lidocaine (PF) (cardiac) injection Given 08/23/2021 3:32 PM WINDOW CASER 60 mg intravenous, As needed, Starting on Mon08/23/21 at 1532, Anesthesia Intra-op ondansetron (PF) injection (ZOFRAN) Given 08/23/2021 5:14 PM WINDOW CASER 4 mg intravenous, As needed, Starting on Mon08/23/21 at 1714, Anesthesia Intra-op phenylephrine injection Given 08/23/2021 4:34 PM WINDOW CASER 100 mcg intravenous, As needed, Starting on Mon08/23/21 at 1558, Anesthesia Intra-op Given 08/23/2021 4:20 PM WINDOW CASER 100 mcg Given 08/23/2021 4:09 PM WINDOW CASER 100 mcg propofoL injection (DIPRIVAN) Given 08/23/2021 3:32 PM WINDOW CASER 150 mg intravenous, As needed, Starting on Mon08/23/21 at 1532, Anesthesia Intra-op sugammadex injection (BRIDION) Given 08/23/2021 5:02 PM WINDOW CASER 200 mg intravenous, As needed, Starting on Mon08/23/21 at 1702, Anesthesia Intra-op vecuronium injection (NORCURON) Given 08/23/2021 4:22 PM WINDOW CASER 3 mg intravenous, As needed, Starting on Mon08/23/21 at 1536, Anesthesia Intra-op Given 08/23/2021 3:36 PM WINDOW CASER 7 mg documented in this encounter Care Teams Drop Machine Operator Relationship Specialty Start Date End Date Elsewhere, Pcp PCP - General Family Medicine 08/12/20 documented as of this encounter
--- OUTSIDE RECORDS SUMMARY | 2022-06-18 16:09 | XMS_ITS | Encounter Summary ---
:1965 Author Organization [facility] Address [address] [place] [address] Care Team Providers Name Role Phone Elsewhere, Pcp Primary Care Provider Unavailable Reason for Visit Reason Comments Med Refill Encounter Details Date Type Department Care Team Description 08/16/2021 [facility] [employer], [place] Chanelle [address] [facility] [address] [place] [address] [place] [address] [phone] (Wo rk) Social History Tobacco Use Types [...] er 01/15/2021 How often do you attend zoroastrianism or confucianist services? Never 01/15/2021 Do you belong to any clubs or organizations such as zoroastrianism N o 01/15/2021 groups, unions, fraternal or [...] at Date Recorded Male 08/18/2021 2:55 PM ISSUE CLERK documented as of this encounter Plan of Treatment Upcoming Encounters Date Type Specialty Care Team Description 06/22/2022 Lab Laboratory Medicine Maria Del Rosario Gomez AP RN, C.N.P., M.S. [address] [place] [phone] (Wo rk) 06/22/2022 Infusion Oncology Maria Del Rosario Gomez APRN, C.N .P., M.S. [address] [place] [phone] (Wo rk) 06/29/2022 Lab Laboratory Medicine Maria Del Rosario Gomez AP RN, C.N.P., M.S. [address] [place] [address] [phone] (Wo rk) 06/29/2022 Infusion Oncology Maria Del Rosario Gomez APRN, C.N .P., M.S. [address] [place] [address] [phone] (Wo rk) documented as of this encounter Visit Diagnoses Diagnosis Malignant Neoplasm Of Pancreas (HCC) documented in this encounter Care Teams Supervisor Wheel Shop Relationship Specialty Start Date End Date Elsewhere, Pcp PCP - General Family Medicine 08/12/20 documented as of this encounter
--- OUTSIDE RECORDS SUMMARY | 2022-06-18 16:10 | XMS_ITS | Encounter Summary ---
:1965 Author Organization [facility] Address [address] [place] [address] Care Team Providers Name Role Phone Elsewhere, Pcp Primary Care Provider Unavailable Reason for Visit Reason Comments Med Refill Encounter Details Date Type Department Care Team Description 05/19/2021 Refill Department of Palliative Care Nan Duque, Med Refill in [facility] elke JACK, C.N.P. [address] [place] [address] [place] [address] [phone] (Wo rk) Social History Tobacco Use Types [...] often do you attend latter day or worship services? Never 01/15/2021 Do you belong to [...] at Date Recorded Male 08/18/2021 2:55 PM JAVA TECH LEAD documented as of this encounter Plan of Treatment Upcoming Encounters Date Type Specialty Care Team Description 06/22/2022 Lab Laboratory Medicine Maria Del Rosario Gomez AP RN, C.N.P., M.S. [address] [place] [phone] (Mj godoy) 06/22/2022 Infusion Oncology Maria Del Rosario Gomez APRN, C.N .P., M.S. [address] [place] [phone] (Mj godoy) 06/29/2022 Lab Laboratory Medicine Maria Del Rosario Gomez AP RN, C.N.P., M.S. [address] [place] [phone] (Mj godoy) 06/29/2022 Infusion Oncology Maria Del Rosario Gomez APRN, C.N .P., M.S. [address] [place] [phone] (Mj godoy) documented as of this encounter Visit Diagnoses Not on filedocumented in this encounter Care Teams Program Host Relationship Specialty Start Date End Date Elsewhere, Pcp PCP - General Family Medicine 08/12/20 documented as of this encounter
--- OUTSIDE RECORDS SUMMARY | 2022-06-18 16:10 | XMS_ITS | Encounter Summary ---
:1965 Author Organization [facility] Address [address] [place] [address] Care Team Providers Name Role Phone Elsewhere, Pcp Primary Care Provider Unavailable Reason for Visit Outpatient (Routine) - Closed Specialty Diagnoses / Procedures Referred By Contact Refer red To Contact Diagnoses Malignant Neoplasm Of Pancreas (HCC) Aura Zheng [facility] Procedures Perform central personal lines insurance agent: Flush port(s) [address] [place] [phone] Referral ID Status Reason Start Date Expiration Date Visits Requ ested Visits Authorized [id number] Closed 05/14/2021 05/14/2022 1 1 Encounter Details Date Type Department Care Team Description 05/31/2021 Infusion Department of Infusion Aura Zheng Mal ignant Neoplasm Of Pancreas (HCC) (Primary Dx); Therapy in [facility] [address] [facility] [address] [place] [address] [phone] Social History Tobacco Use Types Packs/Day Years [...] How often do you attend holiness or faith services? 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 [address] [place] [phone] (Mj rk) 06/22/2022 Infusion Oncology Maria Del Rosario Gomez APRN, C.N .P., M.S. [address] [place] [phone] (Wo rk) 06/29/2022 Lab Laboratory Medicine Maria Del Rosario Gomez AP RN, C.N.P., M.S. [address] [place] [phone] (Mj rk) 06/29/2022 Infusion Oncology Maria Del Rosario Gomez APRN, C.N .P., M.S. [address] [place] [phone] (Mj rk) documented as of this encounter Visit Diagnoses Diagnosis Malignant Neoplasm Of Pancreas (HCC) - P rimary Bacteremia documented in this encounter Administered Medications Inactive Administered Medications - up to 3 most recent administrations Medication Order MAR Action Action Date Dose Rate Site heparin flush 500 Units Given 05/31/2021 10:43 AM CDT 500 Units 500 Units, intra-catheter, As needed, line care, Starting on 05/31/21 at 1033, When no infusion to maintain patency: For IVAD accessed, not in use, and/or prior to hospital discharge, flush every 7 days after 0.9% preservative-free NaCL flush. For IVAD NOT accessed or used, flush every 4 weeks after 0.9% preservative-free NaCL flush. sodium chloride 0.9 % injection 10 mL Given 05/31/2021 10:43 AM CDT 10 mL 10 mL, intra-catheter, As needed, line care, Starting on 05/31/21 at 1033, When IVAD Accessed and in Use: Flush prior to and following infusion, between multiple consecutive infusions, and prior to blood sampling. Given 05/31/2021 10:42 AM CDT 10 mL documented in this encounter Care Teams Clockmaker Relationship Specialty Start Date End Date Elsewhere, Pcp PCP - General Family Medicine 08/12/20 documented as of this encounter
--- OUTSIDE RECORDS SUMMARY | 2022-06-18 16:10 | XMS_ITS | Encounter Summary ---
:1965 Author Organization [facility] Address [address] [place] [address] Care Team Providers Name Role Phone Elsewhere, Pcp Primary Care Provider Unavailable Encounter Details Date Type Department Care Team Description 05/21/2021 Orders Only [facility] PCP TH Sa adrian Cortes M.D. [address] [place], [place] [phone] (Wo rk) Social History Tobacco Use Types [...] How often do you attend scientology or latter-day services? 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, C.N.P., M.S. [address] [place] [phone] (Wo rk) 06/22/2022 Infusion Oncology Maria Del Rosario Gomez APRN, C.N .P., M.S. [address] [place] [phone] (Wo rk) 06/29/20[address] Lab [address] [facility] RN, C.N.P., M.S. [address] [place] [phone] (Mj rk) 06/29/2022 Infusion Oncology Maria Del Rosario Gomez APRN, C.N .P., M.S. [address] [place] [phone] (Mj rk) documented as of this encounter Visit Diagnoses Not on filedocumented in this encounter Care Teams Advertising Sales Associate Relationship Specialty Start Date End Date Elsewhere, Pcp PCP - General Family Medicine 08/12/20 documented as of this encounter
--- OUTSIDE RECORDS SUMMARY | 2022-06-18 16:10 | XMS_ITS | Encounter Summary ---
:1965 Author Organization [facility] Address [address] [place] [id number] Care Team Providers Name Role Phone Elsewhere, Pcp Primary Care Provider Unavailable Reason for Referral Outpatient (Routine) - Closed Specialty Diagnoses / Procedures Referred By Contact Refer red To Contact Diagnoses Malignant Neoplasm Of Pancreas (HCC) Secondary Malignant Neoplasm Liver (HCC) Vladislav Zarco M.D. 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 [facility] [address] [place] [phone] Referral ID Status Reason Start Date Expiration Date Visits Requ ested Visits Authorized [id number] Closed 06/30/2021 06/30/2022 1 1 Encounter Details Date Type Department Care Team Description 08/13/2021 Office Visit Department of Oncology CaroleeRuby campbell Neoplasm Of Pancreas (HCC) (Primary Dx); [place] Secondary Malignant Neoplasm Liver (HCC) [place] 200 [facility] 200 [place] [phone] Social History Tobacco Use Types Packs/Day Years [...] How often do you attend samaritan or zoroastrian services? Never 01/15/2021 Do you [...] minutes do you engage in exercise at is 0 min 01/15/2021 level? 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 - 08/13/2021 2:50 PM CST SUBJECTIVE PRIMARY CARE PHYSICIAN ELSEWHERE, PCP, PA-C Patient Care Team: Adrian Mills M.D. as External Primary Care Physician (Family Medicine) LOCAL ONCOLOGIST No care contact center team lead to display PRIMARY NEHAWKA ONCOLOGIST Deborah Murray M.B.B.Maria Del Rosario Ojeda APRN C.N.Pamela., M.S. CHIEF COMPLAINT / REASON FOR VISIT Adam Campbell is a 56 y.o. male who presents for evaluation of pancreatic cancer. He is feeling pretty well right now eating well and he was his bowels once a day, which has been much improved with pancreatic enzyme replacement. His neuropathy and arthritis pain is somewhat although he is still working with palliative Care on management of these medicines. HISTORY OF PRESENT ILLNESS Oncology History Oncology [...] (01/25/2021 - 03/02/2021) Site: Pancreas Technique: 3D MUSHROOM GROWING SUPERVISOR Goal: Curative Planned Treatment Start Date: 01/25/2021 01/25/2021 - 03/01/2021 Chemotherapy Gemcitabine ( with Radiation ) Start Date: 01/25/2021 08/13/2021 Genetic Testing and Tumor Genotyping [facility] pancreas panel negative General: Associated symptoms: arthralgias and numbness Associated symptoms: no chest pain, no fatigue, no fever, no nausea and no vomiting The following portions of the patient's history were reviewed and updated as appropriate: allergies,current medications, medical history and problem list. Rate your distress: 0 (no distress) REVIEW OF SYSTEMS Constitutional: Negative for fatigue, fever, loss of appetite and weight loss of more than 10 pounds. Cardiovascular: Negative for chest pain, pressure or tightness and swelling in the legs or feet. Gastrointestinal: Negative for diarrhea, nausea and vomiting. Hematologic: Negative for abnormal lumps or bumps. Musculoskeletal: Positive for arthralgias and pain or stiffness in the joints. Neurological: Positive for numbness or shooting pain in hands, arms, legs, or feet. The following systems were negative: Respiratory, , Psych OBJECTIVE There were no vitals taken for [...] (HCC) #2 Secondary Malignant Neoplasm Liver (HCC) Unfortunately, the patient has evidence of a new liver lesion suspicious for metastasis. He denies any symptoms that would be consistent with a hepatic abscess(fever, chills). I think we should biopsy this area to prove recurrence and also to get sample for molecular testing. Patient is agreement we will meet back afterwards. Given the neuropathy, I think FOLFIRI or biliary 5 FU would be good options. There may also be a clinical trial combining these with Onvansertib. I inquired with the live study manager and we will know more next week. It is currently closed We talked about the goals of palliative care being extension of survival. I discussed the survival times for stage IV pancreatic cancer with and without therapy. Patient and his had opportunity tohave questions answered. PATIENT EDUCATION Ready to learn, no apparent learning barriers were identified; learning preferences include listening. Explained diagnosis and treatment plan; patient expressed understanding of the content. ADMINISTRATIVE BILLING I personally spent 35 minutes in care of the patient today. Time includes both non face to face and face to face patient care. 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 [address] [place] [phone] (Mj godoy) 06/22/2022 Infusion Oncology Maria Del Rosario Gomez APRN, C.N .P., M.S. [address] [place] [phone] (Mj godoy) 06/29/2022 Lab Laboratory Medicine Maria Del Rosario Gomez AP RN, C.N.P., M.S. [address] [place] [phone] (Mj godoy) 06/29/2022 Infusion Oncology Maria Del Rosario Gomez APRN, C.N .P., M.S. 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 However, this area is very poorly visualized and the only path for biopsy would cross both the rig ht portal vein and the right hepatic vein. Given the uncertainty of this repr esenting a real finding or not and the difficulty in accessing this location, n o biopsy was performed. Narrative 08/16/2021 11:12 AM AUTOMATIC I THREADING MACHINE FEEDER EXAM: US ABDOMEN LIMITED LIVER COMPARISON: CT performed 08/13/2021 Procedure Note Marco Flores M.D. - 08/16/2021Formatti ng of this note might be different from the original. EXAM: US ABDOMEN LIMITED LIVER COMPARISON: CT performed 08/13/2021 IMPRESSION: There is a vague hypoechoic area in the right hepatic dome posterior to the right hepatic vein which may nita elate with the new finding seen on CT performed 08/13/2021. However, this area is very poorly visualized and the only path for biopsy would cross both the rig ht portal vein and the right hepatic vein. Given the uncertainty of this repr esenting a real finding or not and the difficulty in accessing this location, n o biopsy was performed. Vladislav Zarco M.D. IMTeresa US PROCEDURES documented in this encounter Visit Diagnoses Diagnosis Malignant Neoplasm Of Pancreas (HCC) - P rimary Secondary Malignant Neoplasm Liver (HCC) Malignant Neoplasm Of Pancreas (HCC) Secondary Malignant Neoplasm Liver (HCC) documented in this encounter Care Teams Enterprise Architect Manager Relationship Specialty Start Date End Date Elsewhere, Pcp PCP - General Family Medicine 08/12/20 documented as of this encounter
--- OUTSIDE RECORDS SUMMARY | 2022-06-18 16:10 | XMS_ITS | Encounter Summary ---
:1965 Author Organization [facility] Address [address] [place] [address] Care Team Providers Name Role Phone Elsewhere, Pcp Primary Care Provider Unavailable Reason for Visit Reason Comments Medication Question Encounter Details Date Type Department Care Team Description 06/22/2021 Clinical Communication Department of Aura Zheng Me dication Question [facility] [address] [place], [place] [address] [place] [phone] [place], [place] [phone] (Work) [phone] Social History Tobacco Use Types Packs/Day Years [...] often do you attend jehovah's witness or hoahaoism services? Never 01/15/2021 Do you [...] for the very basics like Not v cotrez hard 01/15/2021 food, housing, medical care, and [...] PROGRAM RESIDENT documented as of this encounter Miscellaneous Notes Telephone Encounter - Aleksandra Barger R.N., CHPN - 06/22/2021 10:28 AM CDT ASSESSMENT Adam Campbell??is a 55 y.o.??male??with a diagnosis of locally advanced pancreatic adenocarcinoma??who is followed by outpatient Palliative Care Clinic for non-pain symptoms, pain and psychosocial support. Patient calls today regarding worsening neuropathy over the past week. He states he is becoming moreactive and usually notices the neuropathy when he sits down for the evening. He describes it as a cold, tingling sensation. Patient reports that last night was the worst and he was unable to sleep. He is currently taking Gabapentin 300 mg at bedtime which has been very helpful until now. Patient wonders if he needs an increased dose. Patient also uses Hydromorphone 4 mg, one tablet in the morning which helps with his pain and does not use any additional doses during the day. PLAN Discussed with Georgie Obregon CNP who recommends increasing the Gabapentin to 600 mg at bedtime. He can take the mediation earlier in the evening if he wishes to help with the evening discomfort. New prescription was sent to the [facility] per his request. Disposition/Recommendation: recommended continue engagement in self-management activities. Information/Education: patient/caller able to teach back. Caller agreeable to plan of care: yes. The following references were used: nursing clinical judgement and provider Myra Obregon CNP. documented in this encounter Plan of Treatment Upcoming Encounters Date Type Specialty Care Team Description 06/22/2022 Lab Laboratory Medicine Maria Del Rosario Gomez AP RN, C.N.P., M.S. [address] [place] [phone] (Mj godoy) 06/22/2022 Infusion Oncology Maria Del Rosario Gomez APRN, Remy.N .P., M.S. [address] [place] [phone] (Mj godoy) 06/29/2022 Lab Laboratory Medicine Maria Del Rosario Gomez AP RN, C.N.P., M.S. [address] [place] [phone] (Wo rk) 06/29/2022 Infusion Oncology Maria Del Rosario Gomez APRN, C.N .P., M.S. [address] [place] [phone] (Wo rk) documented as of this encounter Visit Diagnoses Not on filedocumented in this encounter Care Teams Sales Process Manager Relationship Specialty Start Date End Date Elsewhere, Pcp PCP - General Family Medicine 08/12/20 documented as of this encounter
--- OUTSIDE RECORDS SUMMARY | 2022-06-18 16:10 | XMS_ITS | Encounter Summary ---
:1965 Author Organization [facility] Address [address] [place] [address] Care Team Providers Name Role Phone Elsewhere, Pcp Primary Care Provider Unavailable Encounter Details Date Type Department Care Team Description 04/29/2021 External Outreach Department of [facility] Wes Rene, Contact With And Medicine in [facility] (Suspected) Exposure [place], [place] [address] To COVID-19 (Primary [address] [place], [place] Dx) [place] [phone] Social History Tobacco Use Types Packs/Day Years [...] How often do you attend zoroastrianism or baptism services? Never 01/15/2021 Do you belong to [...] at Date Recorded Male 08/18/2021 2:55 PM ORDER TO DELIVERY SUPERVISOR documented as of this encounter Progress Notes Meryl Carlson R.N. - 04/29/2021 1:06 PM CDT Symptomatic Covid Testing documented in this encounter Plan of Treatment Upcoming Encounters Date Type Specialty Care Team Description 06/22/2022 [facility] C[facility] M.S. [address] [place] [phone] (Mj godoy) 06/22/2022 [facility], C.N .P., M.S. [address] [place] [phone] (Mj godoy) 06/29/2022 Lab [facility], C.N.P., M.S. [address] [place] [phone] (Mj rk) 06/29/2022 [facility], C.N .P., M.S. [address] [place] [phone] (Mj rk) documented as of this encounter Procedures Procedure Name Priority Date/Time Associated Diagnosis Comme nts SARS CORONAVIRUS-2 Routine 04/29/2021 1:08 PM Contact With And Results for this RNA, V CDT (Suspected) Exposure procedu re are in To COVID-19 the results section. documented in this encounter Results SARS Coronavirus-2 RNA, V Symptomatic (04/29/2021 1:08 PM CDT) [facility] Method Time Signature SARS-CoV-2 Swab, 04/30/2021 MKTO Specimen Nasopharynx 1:48 AM CDT Source SARS CoV-2 Undetected Undetected 04/30/2021 GABINO RNA, TMA 1:48 AM CDT Comment: SARS-CoV-2 RNA absent. This result does not rule out COVID-19 in the patient, as the sensitivity of the test depends o n the timing of the specimen collection and the quality of the specim en. Result should be correlated with patient's history and clinical presentat ion. ----ADDITIONAL INFORMATION---- This molecular amplification test was pe rformed using the Aptima SARS-CoV-2 assay ([employer] on the [employer] tem under emergency use authorization (EUA) by the U.S. Food and Drug Administ ration. Fact sheets for this EUA assay can be fo und at the following links: For Healthcare Providers: https://www.[employer] a.gov/media/564894/download For Patients: https://www.fda.gov/media/ 504491/download Specimen Anatomical Collection Method Collection Time Receive d Time (Source) Location / / Volume Laterality Varies 04/29/2021 1:08 PM 7:49 (Nasopharynx) CDT PM CDT Wes Rene M.D. LAB MICROBIOLOGY - GENERAL O [place] Performing Organization Address City/State/ZIP Code Phon e Number [facility]- [address] [place] [address] [place] [address] System [address] documented in this encounter Visit Diagnoses Diagnosis Contact With And (Suspected) Exposure To COVID-19 - Primary documented in this encounter Additional Health Concerns Infection Onset Date Last Indicated Resolved Time COVID19 Pending 04/29/2021 04/29/2021 04/30/2021 1:48 AM CDT documented as of this encounter Care Teams University Professor Relationship Specialty Start Date End Date Elsewhere, Pcp PCP - General Family Medicine 08/12/20 documented as of this encounter
--- OUTSIDE RECORDS SUMMARY | 2022-06-18 16:10 | XMS_ITS | Encounter Summary ---
:1965 Author Organization [facility] Address [address] [place] [address] Care Team Providers Name Role Phone Elsewhere, Pcp Primary Care Provider Unavailable Reason for Referral Outpatient (Routine) - Closed Specialty Diagnoses / Procedures Referred By Contact Refer red To Contact Palliative Medicine Yamileth Hermosillo B.M.B.[address] [address] Referral ID Status Reason Start Date Expiration Date Visits Requ ested Visits Authorized [id number] Closed 08/12/2021 08/12/2022 1 1 Scheduling Instructions Schedule with other appointments in [facility] INERY SALESPERSON Reason for Visit Outpatient (Routine) - Closed Specialty Diagnoses / Procedures Referred By Contact Refer red To Contact Palliative Medicine Aura Zheng D.O. [address] [address] Referral ID Status Reason Start Date Expiration Date Visits Requ ested Visits Authorized [id number] Closed 05/14/2021 05/14/2022 1 1 Encounter Details Date Type Department Care Team Description 08/12/2021 Office Visit Department of Aura Zheng D .O. [address] [place] [phone] Pain Cancer Associated (Primary Dx); Palliative Care in Yamileth Hermosillo B.M.B.Ch. [address] [place] [address] Malignant Neoplasm Of Pancreas (HCC); [place], [place] Pain [facility]uropath[facility] [address] [place] [address] Social History Tobacco Use Types Packs/Day Years [...] How often do you attend pentecostal or samaritan services? 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 - 08/12/2021 10:30 AM CST SUBJECTIVE CHIEF COMPLAINT/REASON FOR VISIT Adam Campbell is a 55 y.o. male with a diagnosis of locally advanced pancreatic adenocarcinomawho presents for evaluation of non-pain symptoms, pain and psychosocial support. Interval History: Mr Campbell has been doing well since his last visit. 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 He takes gabapentin 600mg at night and also hydromorphone 4mg pill, 1/2 pill (2mg dose) once every morning. Alsohas OA joint pain. Also uses medical cannabis He has been able to really watch what he eats and now meal plans. This has significantly improved his abdominal discomfort. He utilizes a low sugar, reduced process diet now. Regular BMs He has been increasing his activity as well. ROS: As per HPI and patient reported data otherwise reviewed and non-contributory in the course of the current encounter. [place] Scores- not completed Palliative Functional Assessment 70%-Reduced ambulation, Unable to do normal job/work with significant evidence of disease, Full self-care, Normal or reduced intake, Full level of consciousness NCCN Distress Thermometer Thermometer distress score (0 = no distress, 10 = extreme distress): 0 Practical problems: NCCN Distress - practical: none Family problems: NCCN Distress- Family: none Emotional problems: NCCN Distress- emotional: none Spiritual/samaritan concerns: no OBJECTIVE PHYSICAL EXAM Temperature: [36.4 ??C] 36.4 ??C Blood Pressure: (109)/(72) 109/72 SpO2: [97 %] 97 % Pulse Rate: [77] 77 Physical Exam General: Fatigued; no acute distress Eyes: Conjunctiva clear, sclera non-icteric Lungs: No use of accessory muscles of respiration, non-labored breathing pattern. Extremities: No lower extremity edema noted. Musculoskeletal: Normal gait. Psychiatric: Oriented X3, intact recent and remote memory, judgment and insight, congruent mood and affect. DIAGNOSTICS I have reviewed labs and CT. ASSESSMENT / PLAN Adam Campbell is a 55 y.o. male with a diagnosis of locally advanced pancreatic adenocarcinomawho presents for evaluation of non-pain symptoms, pain and psychosocial support. Overall, he has done quite well. Symptoms well controlled and he has been successful with opioid weaning. RECOMMENDATIONS Pain: With bilateral LE neuropathy and also joint pain, which he attributes to OA Uses gabapentin 600mg QHS and also hydromorphone 2mg dose about once daily Still with some neuropathy and we discussed future considerations: increasing the gabapentin dose again vs adding in a AM dose (which he prefers not to as it makes him sleepy) vs rotating to pregabalin For today, he prefers not to make any changes I did provide a refill for his hydromorphone. He prefers to stay with the 4mg pill, which he cuts inhalf. As he has using 1/2 pill daily, I did decrease the quantity of pills from 90 to 60. Last fill was in Apr 2021 per [place] [facility] Opioid Summary ??? Opioid Need: This patient has a condition that necessitates treatment with an opioid for longer than 7 days. Additionally, a non-opioid alternative was not appropriate or inadequate to manage patient???s pain. ??? Diagnosis related to controlled substance prescribing: cancer associated pain ??? [place] [facility] [place] Review: We have reviewed the patient's record in the [place] prescription monitoring program August 12, 2021. ??? Opioid Toxicity Review: We have reviewed the risks of opioid therapy and completed an assessmentof toxicities. ??? Opioid Aberrant Use Concerns: None ??? Recommended Opioid Regimen as of August 12, 2021.: Hydromorphone 2-4 mg, takes 2mg dose once daily usually ??? Urine drug screen not obtained today. Opioid Risk Score: Last Opioid Risk Tool charting Office Visit from 05/14/2021 in Department of Palliative Care in [place], [place] ORT Total Score (max 26) 0 Constipation: Continue to monitor bowels while on opioids; currently controlled with dietary measures with opioid weaning. From a cancer perspective, he is getting labs and imaging done tomorrow, the results of which will determine treatment plans Advance Care Planning: Documented surrogate decision maker? , Shaniqua Campbell Will continue to focus on enhancing illness understanding while providing ongoing action oriented adaptive coping counseling. Thank you for the opportunity to see this patient. Patient has our contact information and understands to call with new/worsening symptoms or concerns. We will work alongside the primary outpatient team to address these issues. Palliative care outpatient clinic will continue to follow along. Follow up visit: provider 3 months, clinic visit Total time spent was 35 minutes Kyle Hermosillo B.M.B.Ch. INERY SALESPERSON documented in this encounter Plan of Treatment Upcoming Encounters Date Type Specialty Care Team Description 06/22/2022 Lab [facility] RN, C.N.P., M.S. [address] [place] [phone] ( rk) 06/22/2022 [facility] APRN, C.N .P., M.S. [address] [place] [phone] (Mj rk) 06/29/2022 Lab [facility] RN, C.N.P., M.S. [address] [place] [phone] (Mj rk) 06/29/2022 [facility] APRN, C.N .P., M.S. [address] [place] [phone] (Mj rk) Scheduled Referrals Name Type Priority Associated Order Schedule Diagnoses Palliative Care Outpatient Referral Routine Expec sally: office visit 11/10/2021 (clinic) (Approximate), Expires: 11/10/2022 documented as of this encounter Visit Diagnoses Diagnosis Pain Cancer Associated - Primary Malignant Neoplasm Of Pancreas (HCC) Pain Neuropathic documented in this encounter Care Teams Assistant Project Engineer Relationship Specialty Start Date End Date Elsewhere, Pcp PCP - General Family Medicine 08/12/20 documented as of this encounter
--- OUTSIDE RECORDS SUMMARY | 2022-06-18 16:10 | XMS_ITS | Encounter Summary ---
:1965 Author Organization [facility] Address [address] [place] [address] Care Team Providers Name Role Phone Elsewhere, Pcp Primary Care Provider Unavailable Reason for Visit Reason Comments Port Flushed Encounter Details Date Type Department Care Team Description 06/15/2021 Clinical Communication Department of Aura Zheng Po rt Flushed Palliative Care in [place], [place] [address] [facility] [address] [place] [address] [phone] Social History Tobacco Use Types Packs/Day Years [...] How often do you attend buddhism or zoroastrian services? 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 - 06/15/2021 4:11 PM CDT Information Discussed Mr. Campbell contacted our team to inquiry about how to schedule the next IVAD flushing. Last access and flush was completed on May 31 in the [facility]. Our PalliativeCare provider, Dr. Zheng, had placed the order in May. He was unsure how to get this scheduled;his desire is to travel to [place] monthly. I reached out to the [facility] center and verified that the order is ongoing. An appointment was arranged for June 28 at 10:45 AM. PLAN Disposition/Recommendation: referral for services [facility] 8 -Appointment arranged for 4 weeks since last access/flush. - Direct contact number given to Mr. Campbell to arrange future appointments # [phone] Information/Education: patient/caller able to teach back Caller agreeable to plan of care: yes The following references were used: previous plan of care date: 05/31 documented in this encounter Plan of Treatment Upcoming Encounters Date Type Specialty Care Team Description 06/22/2022 Lab Laboratory Medicine Maria Del Rosario Gomez AP RN, C.N.P., M.S. [address] [place] [phone] (Mj godoy) 06/22/2022 Infusion Oncology Maria Del Rosario Gomez APRN, C.N .P., M.S. [address] [place] [phone] (Mj godoy) 06/29/2022 Lab Laboratory Medicine Maria Del Rosario Gomez AP RN, C.N.P., M.S. [address] [place] [phone] (Mj godoy) 06/29/2022 Infusion Oncology Maria Del Rosario Gomez APRN, C.N .P., M.S. [address] [place], [place] [phone] (Wo rk) documented as of this encounter Visit Diagnoses Not on filedocumented in this encounter Care Teams Instrument Repair Technician Relationship Specialty Start Date End Date Elsewhere, Pcp PCP - General Family Medicine 08/12/20 documented as of this encounter
--- OUTSIDE RECORDS SUMMARY | 2022-06-18 16:10 | XMS_ITS | Encounter Summary ---
:1965 Author Organization [facility] Address [address] [place] [address] Care Team Providers Name Role Phone Elsewhere, Pcp Primary Care Provider Unavailable Reason for Visit Reason Comments Med Refill ondansetron Encounter Details Date Type Department Care Team Description 08/16/2021 Clinical Communication Department of Deborah Murray, Med Refill Oncology in [facility] (ondansetron) [place], [facility] [address] [place], [place] [address] [facility] [address] [place], [place] [phone] (Work) [phone] Social History Tobacco Use Types Packs/Day Years [...] er 01/15/2021 How often do you attend religious or tenriism services? 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 - 08/16/2021 12:01 PM CORPORATE WEBMASTER Rx refill request sent to Dr. Zarco to sign. ORATE WEBMASTER Telephone Encounter - Mariela Holley C.Ph.T. - 08/16/2021 9:48 AM CORPORATE WEBMASTER Received refill request for:Ondansetron 8mg Previous dose prescribed: 24mg Last date prescribed: 01/25/2021 Last date filled: Pharmacy: [place] [address] ORATE WEBMASTER documented in this encounter Plan of Treatment Upcoming Encounters Date Type Specialty Care Team Description 06/22/2022 [facility] [address] [place] [phone] (Mj godoy) 06/22/2022 [place]fusion [place]cology [place] APRN, Remy.N .P., M.S. [address] [place] [phone] (Wo rk) 06/29/2022 Lab Laboratory Medicine Maria Del Rosario Gomez AP RN, C.N.P., M.S. [address] [place] [phone] (Mj godoy) 06/29/2022 Infusion Oncology Maria Del Rosario Gomez APRN, C.N .P., M.S. [address] [place] [phone] (Wo rk) documented as of this encounter Visit Diagnoses Not on filedocumented in this encounter Care Teams Parking Line Painter Relationship Specialty Start Date End Date Elsewhere, Pcp PCP - General Family Medicine 08/12/20 documented as of this encounter
--- OUTSIDE RECORDS SUMMARY | 2022-06-18 16:10 | XMS_ITS | Encounter Summary ---
:1965 Author Organization [facility] Address [address] [place] [address] Care Team Providers Name Role Phone Elsewhere, Pcp Primary Care Provider Unavailable Reason for Visit Reason Comments Procedure Outpatient (Routine) - Closed Specialty Diagnoses / Procedures Referred By Contact Refer red To Contact Diagnoses Malignant Neoplasm Of Pancreas (HCC) Aura Zheng D.O. [facility] Procedures Perform central fur liner: Flush port(s) [address] [place] [phone] Referral ID Status Reason Start Date Expiration Date Visits Requ ested Visits Authorized [id number] Closed 06/15/2021 06/15/2022 3 3 Encounter Details Date Type Department Care Team Description 06/28/2021 Infusion Department of Infusion Aura Zheng Mal ignroland Neoplasm Of Pancreas (HCC) (Primary Dx); Therapy in [facility] [address] [facility] [address] [place] [address] [phone] Social History Tobacco Use Types Packs/Day Years [...] How often do you attend cheondoism or yazidi services? 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 [address] [place] [phone] (Mj godoy) 06/22/2022 Infusion Oncology Maria Del Rosario Gomez APRN, C.N .P., M.S. [address] [place] [phone] (Mj godoy) 06/29/2022 Lab Laboratory Medicine Maria Del Rosario Gomez AP RN, C.N.P., M.S. [address] [place] [phone] (Mj godoy) 06/29/2022 Infusion Oncology Maria Del Rosario Gomez APRN, C.N .P., M.S. [address] [place] [phone] ([facility]) documented as of this encounter Visit Diagnoses Diagnosis Malignant Neoplasm Of Pancreas (HCC) - P rimary Bacteremia documented in this encounter Administered Medications Inactive Administered Medications - up to 3 most recent administrations Medication Order MAR Action Action Date Dose Rate Site heparin flush 500 Units Given 06/28/2021 11:20 AM CDT 500 Units 500 Units, intra-catheter, As needed, line care, Starting on Mon06/28/21 at 1102, When no infusion to maintain patency: For IVAD accessed, not in use, and/or prior to hospital discharge, flush every 7 days after 0.9% preservative-free NaCL flush. For IVAD NOT accessed or used, flush every 4 weeks after 0.9% preservative-free NaCL flush. sodium chloride 0.9 % injection 20 mL Given 06/28/2021 11:20 AM CDT 20 mL 20 mL, intra-catheter, As needed, line care, Starting on Mon06/28/21 at 1102, When IVAD Accessed and in Use: Flush post blood transfusion or post blood sampling. documented in this encounter Care Teams Sales Exec Relationship Specialty Start Date End Date Elsewhere, Pcp PCP - General Family Medicine 08/12/20 documented as of this encounter
--- OUTSIDE RECORDS SUMMARY | 2022-06-18 16:10 | XMS_ITS | Encounter Summary ---
:1965 Author Organization [facility] Address [address] [place] [address] Care Team Providers Name Role Phone Elsewhere, Pcp Primary Care Provider Unavailable Reason for Visit Reason Comments Med Refill Encounter Details Date Type Department Care Team Description 2021 Refill Department of Palliative Care Jesse Thomson M.D. Med Refill in [facility] [address] [facility] [address] [place] [address] [place] [address] [phone] Social History Tobacco Use Types Packs/Day Years [...] How often do you attend zoroastrian or zoroastrianism services? 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 - 2021 3:49 PM CDT Prescription Refill Request Current Prescription Regimen: hydromorphone 4 mg tablet, (2-4 mg) every 3 hours as needed Last strength/amount/date filled: 4 mg/#90/ 03/31/21 [place] FRAZER [place] Prescription/amount provided today: #90 4 mg tablets Prescription will be e-Prescribed to the following pharmacy: [facility], [facility] Last appointment was telemedicine live video visit on 03/29/21 Last in-office visit if different than above: 02/11/21 Next palliative appointment is in person office visit on 05/14/21 Prescription was authorized by Kareen Wood DNP documented in this encounter Plan of Treatment Upcoming Encounters Date Type Specialty Care Team Description 06/22/2022 Lab Laboratory Medicine Maria Del Rosario Gomez AP RN, C.N.P., M.S. [address] [place] [phone] (Mj godoy) 06/22/2022 Infusion Oncology Maria Del Rosario Gomez APRN, C.N .P., M.S. [address] [place] [phone] (Mj godoy) 06/29/2022 Lab Laboratory Medicine Maria Del Rosario Gomez AP RN, C.N.P., M.S. [address] [place] [phone] (Mj godoy) 06/29/2022 Infusion Oncology Maria Del Rosario Gomez APRN, C.N .P., M.S. [address] [place] [phone] (Mj godoy) documented as of this encounter Visit Diagnoses Not on filedocumented in this encounter Care Teams Loss Prevention Specialist Relationship Specialty Start Date End Date Elsewhere, Pcp PCP - General Family Medicine 08/12/20 documented as of this encounter
--- OUTSIDE RECORDS SUMMARY | 2022-06-18 16:10 | XMS_ITS | Encounter Summary ---
:1965 Author Organization [facility] Address [address] [place] [address] Care Team Providers Name Role Phone Elsewhere, Pcp Primary Care Provider Unavailable Reason for Visit Reason Comments Appointment Encounter Details Date Type Department Care Team Description 06/30/2021 Clinical Communication Department of Oncology Josiah doe, [place] [address] [address] [facility] [address] [place] [phone] Social History Tobacco Use Types Packs/Day Years [...] How often do you attend buddhist or zoroastrian services? 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 [address] [place] [address] [phone] (Wo rk) 06/22/2022 Infusion Oncology Maria Del Rosario Gomez APRN, C.N .P., M.S. [address] [place] [address] [phone] (Wo rk) 06/29/2022 Lab Laboratory Medicine Maria Del Rosario Gomez AP RN, C.N.P., M.S. [address] [place] [phone] (Wo rk) 06/29/2022 Infusion Oncology Maria Del Rosario Gomez APRN, C.N .P., M.S. [address] [place] [phone] (Wo rk) documented as of this encounter Visit Diagnoses Not on filedocumented in this encounter Care Teams Actimize Architect Relationship Specialty Start Date End Date Elsewhere, Pcp PCP - General Family Medicine 08/12/20 documented as of this encounter
--- OUTSIDE RECORDS SUMMARY | 2022-06-18 16:10 | XMS_ITS | Encounter Summary ---
:1965 Author Organization [facility] Address [address] [place] [address] Care Team Providers Name Role Phone Elsewhere, Pcp Primary Care Provider Unavailable Reason for Visit Reason Comments Med Refill Encounter Details Date Type Department Care Team Description 06/29/2021 Refill Department of Palliative Care Marcelina Gonzalez, Med Refill in [facility] elke P.ARiaz-CRiaz [address] [facility] [address] [place] [address] [place] [address] [phone] (Wo rk) Social History Tobacco Use Types [...] How often do you attend pentecostal or uatsdin services? 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 [address] [place] [phone] (Wo rk) 06/22/2022 Infusion Oncology Maria Del Rosario Gomez APRN, C.N .P., M.S. [address] [place] [phone] (Wo rk) 06/29/2022 Lab Laboratory Medicine Maria Del Rosario Gomez AP RN, C.N.P., M.S. [address] [place] [phone] (Wo rk) 06/29/2022 Infusion Oncology Maria Del Rosario Gomez APRN, C.N .P., M.S. [address] [place] [phone] (Wo rk) documented as of this encounter Visit Diagnoses Not on filedocumented in this encounter Care Teams Linux Network Systems Administrator Relationship Specialty Start Date End Date Elsewhere, Pcp PCP - General Family Medicine 08/12/20 documented as of this encounter
--- OUTSIDE RECORDS SUMMARY | 2022-06-18 16:10 | XMS_ITS | Encounter Summary ---
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) Procedures US LIVER BIOPSY Referral ID Status Reason Start Date Expiration Date Visits Requ ested Visits Authorized [id number] 1 1 Encounter Details Date Type Department Care Team Description 08/16/2021 Hospital Encounter Department of Jose Zarco Neoplasm Of Pancreas (HCC); Radiology, Michael Gautam Secondary Malignant Neoplasm Liver (HCC) [facility], [facility] [address] [place], [place] [address] [place] [id number] [place], [place] [phone] (Work) [phone] Social History Tobacco Use Types Packs/Day Years [...] you get together with friends or relatives? Kiara er 01/15/2021 How often do you attend rastafari or christian services? Never 01/15/2021 Do you [...] at Date Recorded Male 08/18/2021 2:55 PM WEB CONTENT MANAGER documented as of this encounter Last Filed Vital Signs Vital Sign Reading Time Taken Comments Blood Pressure 100/68 08/16/2021 11:00 AM WEB CONTENT MANAGER Pulse 74 08/16/2021 11:04 AM WEB CONTENT MANAGER Temperature 36.6 ??C (97.8 ??F) 08/16/2021 8:56 AM WEB CONTENT MANAGER Respiratory Rate 12 08/16/2021 11:05 AM WEB CONTENT MANAGER Oxygen Saturation 99% 08/16/2021 11:04 AM WEB CONTENT MANAGER Inhaled Oxygen Concentration - - Weight 80.3 kg (177 lb 0.5 oz) 08/16/2021 8:56 AM WEB CONTENT MANAGER Height - - Body Mass Index 28.57 08/13/2021 10:24 AM WEB CONTENT MANAGER documented in this encounter Discharge Instructions Discharge Instr - ActivityBetty Zaidi APRN, C.N.P., M.S. - 08/16/2021 7:14 AM CST Care for the site Keep dressing in place over site for 24 hours. 24 hours after procedure, it is okay to shower. Remove the dressing, clean and rinse the puncture site gently with soap and water and dry thoroughly. Reapply a Band-Aid to the puncture site or leave open to air. Do not submerge puncture site in water such as tub bathing or swimming until completely healed. Activity: No vigorous activities for 24-48 hours. Seeking emergency care Contact your health care provider immediately or seek emergency care for the following symptoms: A temperature of 101 degrees Fahrenheit (38.3 degrees Celsius) or higher Chills Severe abdominal pain Drainage that has blood in it for more than 24 hours. For nonemergent questions or concerns: If you have questions related to the procedure, please contact the [facility] stock saw operator ([phone]) and ask to be connected to the non-vascular interventional radiology fellow communications technician CONTENT MANAGER documented in this encounter Medications at Time [...] the counter lidocaine cream for back pain [id number] Take 2 capsules by 240 capsule 3 12/09/2021 ([place]) mouth as directed. 2 24,000-76,000-120,000 capsules with meals Unit per DR capsule and 1-2 capsules with snacks. LORazepam (Ativan) 0.5 Take 1 tablet (0.5 60 tablet 0 03/2910/24/2021 mg tablet mg total) by mouth 2 (two) times a day as needed for anxiety. traZODone (DESYREL) 50 Take 1-2 tablets 30 [...] Take 2 capsules (600 60 capsule 1 08/202108/17/2021 300 mg capsule mg total) by mouth [...] Gomez AP RN, C.N.P., M.S. [address] [place] [address] [phone] (Wo rk) 06/22/2022 Infusion Oncology Maria Del Rosario Gomez APRN, C.N .P., M.S. [address] [place] [address] [phone] (Wo rk) 06/29/2022 Lab Laboratory Medicine Maria Del Rosario Gomez AP RN, C.N.P., M.S. [address] [place] [address] [phone] (Wo rk) 06/29/2022 Infusion Oncology Maria Del Rosario Gomez APRN, C.N .P., M.S. [address] [place] [address] [phone] (Wo rk) documented as of this encounter Procedures Procedure Name Priority Date/Time Associated Comments Diagnosis US ABDOMEN LIMITED RAD - Routine 08/16/2021 11:09 Malignant Resu lts for this LIVER (most inpatients AM WEB CONTENT MANAGER Neoplasm Of procedure a re in and all Pancreas (HCC) the results outpatients) Secondary section. Malignant Neoplasm Liver (HCC) PROTHROMBIN TIME STAT 08/16/2021 9:22 Results for this (PT), P AM WEB CONTENT MANAGER procedure are i n the results section. documented in this encounter Results US Abdomen Limited Liver (08/16/2021 11:09 AM WEB CONTENT MANAGER) Anatomical Region Laterality Modality Abdomen, Ultrasound RST LOS, Ultrasound ARZ LOS, Ultrasound FLA N/A Ultrasound LOS Specimen (Source) Anatomical Collection Method Collection Time Re ceived Time Location / / Volume Laterality 08/16/2021 11:09 AM WEB CONTENT MANAGER Impressions 08/16/2021 11:12 AM WEB CONTENT MANAGER There is a vague hypoechoic area in [...] biopsy was performed. Narrative 08/16/2021 11:12 AM WEB CONTENT MANAGER EXAM: US ABDOMEN LIMITED LIVER COMPARISON: CT [...] o biopsy was performed. Vladislav Zarco M.D. IMG US PROCEDURES Prothrombin Time (PT) (08/16/2021 9:22 AM WEB CONTENT MANAGER) P athologist Signature Prothrombin 11.2 9.4 - 12.5 08/16/2021 STMA Time, P sec 10:30 AM WEB CONTENT MANAGER INR 1.0 0.9 - 1.1 08/16/2021 STMA 10:30 AM WEB CONTENT MANAGER Comment: ----ADDITIONAL INFORMATION---- Standard intensity warfarin therapeutic range: 2.0 to 3.0 ?? High intensity warfarin therapeutic rang e: 2.5 to 3.5 Specimen Anatomical Collection Method Collection Time Receive d Time (Source) Location / / Volume Laterality Blood (Blood, 08/16/2021 9:22 AM 08/16/20 9:41 Venous) WEB CONTENT MANAGER AM WEB CONTENT MANAGER Adam Villa, B.Ch. LAB BLOOD ADD-ON Performing Organization Address City/State/ZIP Code Phon e Number [facility] - [address] [place], [place] [address] [facility] [place] [address] [facility] [address] documented in this encounter Visit Diagnoses Diagnosis Malignant Neoplasm Of Pancreas (HCC) Secondary Malignant Neoplasm Liver (HCC) documented in this encounter Administered Medications Inactive Administered Medications - up to 3 most recent administrations Medication Order MAR Action Action Date Dose Rate Site fentaNYL injection 25 mcg (SUBLIMAZE) 25 mcg, intravenous, Every 2 min PRN, se dation, or pain before and during sedation procedure, Starting on Mon08/16/21 at 10 55, Intraprocedure (RAD), Administer over 1 minute immediately prior to the procedur e. May repeat every 2 minutes to a maximum of 200 mcg, until pain score of 3 or les s from baseline. Do not give if respiratory rate is less than 8 breaths/minute flumazeniL injection 0.2 mg (ROMAZICON) 0.2 mg, intravenous, Once as needed, rev ersal, Starting on Mon08/16/21 at 1055, For 1 dose, Intraprocedure (RAD), Administer once if patient has a RASS score of -4, -5 and has a respiratory rate less than 8 breaths/minute. heparin flush 500 Units Given 08/16/2021 11:30 AM WEB CONTENT MANAGER 500 Units 500 Units, intra-catheter, During hospitalization, line care, Prior to discharge, Starting on Mon08/16/21 at 1125, For 1 dose, Implanted Vascular Access Device (IVAD) Venous Non-Valved: Following saline flush prior to discharge. lactated ringers New Bag 08/16/2021 10:45 AM WEB CONTENT MANAGER 20 mL/hr 20 mL/hr 20 mL/hr, intravenous, Once as needed, to keep vein open, Starting on Mon08/16/21 at 1055, For 1 dose, Intraprocedure (RAD) lidocaine 4 % cream 1 application Given 08/16/2021 8:40 AM WEB CONTENT MANAGER 1 application (LMX) 1 application, topical, Once, On Mon08/16/21 at 0915, For 1 dose midazolam (PF) injection 0.5 mg (VERSED) 0.5 mg, intravenous, Every 2 min PRN, se dation, RASS -1, Starting on Mon08/16/21 at 1055, Intraprocedure (RAD), May repeat e very 2 minutes for a maximum of 5 mg. Do not give if respiratory rate is less than 8 breaths/mi nute. naloxone injection 0.2 mg (NARCAN) 0.2 mg, intravenous, Once as needed, respiratory depre ssion, Starting on Mon08/16/21 at 1055, For 1 dose, Intraproced ure (RAD), Administer once if patient has a RASS score of -4, -5 and has a respiratory rate less t [place] 8 breaths/minute. ondansetron (PF) injection 4 mg (ZOFRAN) 4 mg, intravenous, Once as needed, nausea, vomiting, S tarting on Mon08/16/21 at 1055, For 1 dose, Intraprocedure (RAD) sodium chloride 0.9 % injection 10 mL 10 mL, intravenous, During hospitalizati on, line care, Prior to discharge, Starting on Mon08/16/21 at 1125, For 1 dose, Impl anted Vascular Access Device (IVAD) Venous Non-Valved: Followed by heparin flush prior to dischar ge. documented in this encounter Active and Recently Administered Medications Times are shown in WEB CONTENT MANAGER. Scheduled Medication Order 08/14/2021 08/15/2021 08/16/2021 lidocaine 4 % cream 1 application (LMX) (COMPLETED) 0840 (Given - Provider: Emma Massey R.N.) 1 application, topical, Once, On Mon08/16/21 at 0915, For 1 dose PRN Medication Order 08/14/2021 08/15/2021 08/16/2021 fentaNYL injection 25 mcg (SUBLIMAZE) 1105 (Not Given - Provider: Torie Vicente R.N., CRN - Reason: Discontinued) 25 mcg, intravenous, Every 2 min PRN, se dation, or pain before and during sedation procedure, Starting on Mon08/16/21 at 1055, Intraprocedure (RAD), Administer over 1 minute immediately prior to the pro cedure. May repeat every 2 minutes to a maximum of 200 mcg, until pain score of 3 or less from baseline. Do not give if respiratory rate is less than 8 breaths/minute flumazeniL injection 0.2 mg (ROMAZICON) 1110 (Not Given - Provider: Torie Vicente R.N., CRN - Reason: Discontinued) 0.2 mg, intravenous, Once as needed, rev ersal, Starting on Mon08/16/21 at 1055, For 1 dose, Intraprocedure (RAD), Administer once if patient has a RASS score of -4, -5 and has a respiratory rate less than 8 breaths/minute. heparin flush 500 Units (COMPLETED) 1130 (Given - Provider: Rj Warren R.N.) 500 Units, intra-catheter, During hospit alization, line care, Prior to discharge, Starting on Mon08/16/21 at 1125, For 1 dose, Implanted Vascular Access Device (IVAD) Venous Non-Valved: Following saline flush prior to discharge. lactated ringers (COMPLETED) 104 5 (New Bag - Provider: Torie Vicente R.N., CRN)1105 (Stopped - Provider: Torie Vicente R.N., CRN) 20 mL/hr, intravenous, Once as needed, t o keep vein open, Starting on Mon08/16/21 at 1055, For 1 dose, Intraprocedure (RAD) midazolam (PF) injection 0.5 mg (VERSED) 1110 (Not Given - Provider: Torie Vicente R.N., CRN - Reason: Discontinued) 0.5 mg, intravenous, Every 2 min PRN, se dation, RASS -1, Starting on Mon08/16/21 at 1055, Intraprocedure (RAD), May repeat every 2 minutes for a maximum of 5 mg. Do not give if respiratory rate is less than 8 breaths/minute. naloxone injection 0.2 mg (NARCAN) 1109 (Not Given - Provider: Torie Vicente R.N., CRN - Reason: Discontinued) 0.2 mg, intravenous, Once as needed, res piratory depression, Starting on Mon08/16/21 at 1055, For 1 dose, Intraprocedure (RAD), Administer once if patient has a RASS score of -4, -5 and has a respiratory rate less than 8 breaths/minute. ondansetron (PF) injection 4 mg (ZOFRAN) 1110 (Not Given - Provider: Torie Vicente R.N., CRN - Reason: Discontinued) 4 mg, intravenous, Once as needed, nause a, vomiting, Starting on Mon08/16/21 at 1055, For 1 dose, Intraprocedure (RAD) sodium chloride 0.9 % injection 10 mL 10 mL, intravenous, During hospitalizati on, line care, Prior to discharge, Starting on Mon08/16/21 at 1125, For 1 dose, Implanted Vascular Access Device (IVAD) Venous Non-Valved: Followed by heparin flush prior to discharge. documented in this encounter Care Teams Four Horse Hitch Driver Relationship Specialty Start Date End Date Elsewhere, Pcp PCP - General Family Medicine 08/12/20 documented as of this encounter
--- OUTSIDE RECORDS SUMMARY | 2022-06-18 16:10 | XMS_ITS | Encounter Summary ---
:1965 Author Organization [facility] Address [address] [place] [id number] Care Team Providers Name Role Phone Elsewhere, Pcp Primary Care Provider Unavailable Reason for Visit Outpatient (Routine) - Closed Specialty Diagnoses / Procedures Referred By Contact Refer red To Contact Diagnoses Malignant Neoplasm Of Pancreas (HCC) Aura Zheng D.O. [facility] Procedures Perform central airline captain: Flush port(s) [address] [place] [phone] Referral ID Status Reason Start Date Expiration Date Visits Requ ested Visits Authorized [id number] Closed 06/15/2021 06/15/2022 3 3 Encounter Details Date Type Department Care Team Description 07/26/2021 Infusion Department of Infusion Aura Zheng Mal ignant Neoplasm Of Pancreas (HCC) (Primary Dx); Therapy in [facility] [address] [facility] [address] [place] [phone] Social History Tobacco Use Types Packs/Day Years [...] How often do you attend zoroastrianism or restorationist services? Never 01/15/2021 Do you [...] at Date Recorded Male 08/18/2021 2:55 PM SPRAGGER documented as of this encounter Last Filed Vital Signs Vital Sign Reading Time Taken Comments Blood Pressure 113/74 07/26/2021 11:07 AM SPRAGGER Pulse 83 07/26/2021 11:07 AM SPRAGGER Temperature 36.3 ??C (97.3 ??F) 07/26/2021 11:07 AM SPRAGGER Respiratory Rate 16 07/26/2021 11:07 AM SPRAGGER Oxygen Saturation - - Inhaled Oxygen Concentration - - Weight - - Height - - Body Mass Index - - documented in this encounter Plan of Treatment Upcoming Encounters Date Type Specialty Care Team Description 06/22/2022 Lab Laboratory Medicine Maria Del Rosario Gomez AP RN, C.N.P., M.S. [address] [place] [phone] (Mj godoy) 06/22/2022 Infusion Oncology Maria Del Rosario Gomez APRN, C.N .P., M.S. [address] [place] [address] [phone] (Mj godoy) 06/29/2022 Lab Laboratory Medicine Maria Del Rosario Gomez AP RN, C.N.P., M.S. [address] [place] [address] [phone] (Mj godoy) 06/29/2022 Infusion Oncology Maria Del Rosario Gomez APRN, C.N .P., M.S. [address] [place] [phone] (Mj godoy) documented as of this encounter Visit Diagnoses Diagnosis Malignant Neoplasm Of Pancreas (HCC) - P rimary Bacteremia documented in this encounter Administered Medications Inactive Administered Medications - up to 3 most recent administrations Medication Order MAR Action Action Date Dose Rate Site heparin flush 500 Units Given 07/26/2021 11:17 AM SPRAGGER 500 Units 500 Units, intra-catheter, As needed, line care, Starting on Mon07/26/21 at 1057, When no infusion to maintain patency: For IVAD accessed, not in use, and/or prior to hospital discharge, flush every 7 days after 0.9% preservative-free NaCL flush. For IVAD NOT accessed or used, flush every 4 weeks after 0.9% preservative-free NaCL flush. sodium chloride 0.9 % injection 20 mL Given 07/26/2021 11:17 AM SPRAGGER 20 mL 20 mL, intra-catheter, As needed, line care, Starting on Mon07/26/21 at 1057, When IVAD Accessed and in Use: Flush post blood transfusion or post blood sampling. documented in this encounter Care Teams Riding Teacher Relationship Specialty Start Date End Date Elsewhere, Pcp PCP - General Family Medicine 08/12/20 documented as of this encounter
--- OUTSIDE RECORDS SUMMARY | 2022-06-18 16:10 | XMS_ITS | Encounter Summary ---
:1965 Author Organization [facility] Address [address] [place] [address] Care Team Providers Name Role Phone Elsewhere, Pcp Primary Care Provider Unavailable Reason for Referral MRI/CAT/PET Scan (Routine) - Closed Specialty Diagnoses / Procedures Referred By Contact Refer red To Contact Radiology Diagnoses Malignant Neoplasm Of Pancreas (HCC) Wes Mantilla M.D. [facility] Procedures CT Abdomen Pelvis with IV Contrast TX CT ABD&PELVIS W CNTRST [address] [place], [place] [phone] Referral ID Status Reason Start Date Expiration Date Visits Requ ested Visits Authorized [id number] Closed 06/30/2021 06/30/2022 1 1 RI/CAT/PET Scan (Routine) - Closed Specialty Diagnoses / Procedures Referred By Contact Refer red To Contact Radiology Diagnoses Malignant Neoplasm Of Pancreas (HCC) Wes Mantilla M.D. [facility] Procedures CT Chest with IV Contrast TX CT THORAX W CNTRST TX 3D WO IND WORKSTATION [address] [place] [phone] Referral ID Status Reason Start Date Expiration Date Visits Requ ested Visits Authorized [id number] Closed 06/30/2021 06/30/2022 1 1 COMPOSITOR Reason for Visit MRI/CAT/PET Scan (Routine) - Closed Specialty Diagnoses / Procedures Referred By Contact Refer red To Contact Radiology Diagnoses Malignant Neoplasm Of Pancreas (HCC) Wes Mantilla M.D. [facility] Procedures CT Abdomen Pelvis with IV Contrast TX CT ABD&PELVIS W CNTRST [address] [place] [phone] Referral ID Status Reason Start Date Expiration Date Visits Requ ested Visits Authorized [id number] Closed 06/30/2021 06/30/2022 1 1 Encounter Details Date Type Department Care Team Description 08/13/2021 Hospital Encounter Department of Wes Mantilla Neoplasm Radiology, Bradley Pereira M.D. Of Pancreas (HCC) [facility], in [address] [place] [address] [place] [phone] [place], [place] [phone] (Work) [phone] Social History Tobacco Use Types Packs/Day Years [...] How often do you attend taoist or spiritism services? Never 01/15/2021 Do you [...] at Date Recorded Male 08/18/2021 2:55 PM JOB COMPOSITOR documented as of this encounter Last Filed Vital Signs Vital Sign Reading Time Taken Comments Blood Pressure - - Pulse - - Temperature - - Respiratory Rate - - Oxygen Saturation - - Inhaled Oxygen Concentration - - Weight 77.1 kg (170 lb) 08/13/2021 10:25 AM JOB COMPOSITOR Height 167.6 cm (5' 6) 08/13/2021 10:24 AM JOB COMPOSITOR Body Mass Index 27.44 08/13/2021 10:24 AM JOB COMPOSITOR documented in this encounter Medications at Time of Discharge Medication Sig Dispensed Refills Start Date End Date polyethylene glycol Take 1 packet (17 g 0 (MIRALAX) 17 gram total) by mouth 2 [...] the counter lidocaine cream for back pain shkxxr-slyjjiqw-bxtwnzy Take 2 capsules by 240 capsule 3 [...] for Pain pain Indication: Chronic Pain/Nonacute Pain. 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 documented as of this encounter Nursing Notes Kanwal West R.N. - 08/13/2021 10:45 AM CST IVAD Contrast Injection Assessment Details: What type of IVAD? Power Port If power???What identifiers were used (2 needed or Rad approval)? [place] or Outside medical record (Date 11/05/20) and Xray/Web Operations Lead with CT label viewable (Date if applicable 11/05/20) (medical record was op report stating placement of a power port) Tip placement verified? Yes Location: cavoatrial junction Date (if applicable): 04/27/21 Blood return verified? Yes VAPP Orders (Nurse to use Saline or Heparin post scan): Saline and heparin Is patient staying accessed after scan? No COMPOSITOR documented in this encounter Plan of Treatment Upcoming Encounters Date Type Specialty Care Team Description 06/22/2022 Lab Laboratory Medicine Maria Del Rosario Gomez AP RN, C.N.P., M.S. [address] [place] [phone] ([place]) 06/22/2022 Infusion Oncology Maria Del Rosario Gomez APRN, C.N .P., M.S. [address] [place], [place] [phone] ([place]) 06/29/2022 Lab Laboratory Medicine PatriciaMaria Del Rosario AP RN, C.N.P., M.S. [address] [place], [place] [phone] ([place]) 06/29/2022 Infusion Oncology Maria Del Rosario Gomez APRN, C.N .P., M.S. [address] [place], [place] [phone] ([place]) documented as of this encounter Procedures Procedure Name Priority Date/Time Associated Comments Diagnosis CT ABDOMEN PELVIS RAD - Routine 08/13/2021 11:08 Malignant Resul ts for this WITH IV CONTRAST (most inpatients AM JOB COMPOSITOR Neoplasm Of procedu re are in and all Pancreas (HCC) the results outpatients) section. CT CHEST WITH IV RAD - Routine 08/13/2021 11:08 Malignant Result s for this CONTRAST (most inpatients AM JOB COMPOSITOR Neoplasm Of procedure a re in and all Pancreas (HCC) the results outpatients) section. documented in this encounter Results CT Abdomen Pelvis with IV Contrast (08/13/2021 11:08 AM JOB COMPOSITOR) Anatomical Region Laterality Modality Abdomen, Pelvis, Abdominal RST LOS, N/A Comp uted Tomography, Computed Abdominal ARZ LOS, Abdominal FLA LOS Dileep ography Specimen (Source) Anatomical Collection Method Collection Time Re ceived Time Location / / Volume Laterality 08/13/2021 12:09 PM JOB COMPOSITOR Impressions 08/13/2021 1:07 PM JOB COMPOSITOR 1. ??Grossly unchanged ill-defined pancreatic uncinate process hypodensity/mass compared to CT dated 04/27/2021. 2. ??Improved parenchymal enhancement at the pancreatic neck with overall improving peripancreatic stranding/fluid , however, there are changes of chronic parenchymal inflammation as evidenced by parenchymal thinning and mild pancreatic ductal prominence. Developing pancreas ductal stricture is difficult to exclude. Attention on follow-up imagi ng. 3. ??Stable transgastric pigtail stent t erminating at the left mid abdomen demonstrating surrounding fluid that rem ains contiguous with peripancreatic stranding/fluid and new tethering of spl enic flexure/proximal descending colon to distal portion of the transgastric st ents. These findings may represent evolving changes of pancreatitis/chronic inflammation extending from the ongoing but resolving pancreatic inflammation. 4. ??New 1.5 cm enhancing right hepatic lobe lesion, concerning for metastases. 5. ??Geographic area of arterial enhance ment at the superior left hepatic lobe, which could represent inflammation/focal cholecystitis, given scattered biliary ductal wall enhancement/thickening. No d rainable fluid collection in the liver. 6. 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 Portal veins and SMV remain patent. No evidence of pseudoaneurysm. 7. ??Remainder of examination is grossly unchanged. Narrative 08/13/2021 1:07 PM JOB COMPOSITOR EXAM: ??CT ABDOMEN PELVIS WITH IV CONTRAST COMPARISON: ??Comparison is made to [facility] iple prior studies, most recent CT from 04/27/2021. Comparison made to prior MRI from 09/09/2020 FINDINGS: Stable positioning of biliary stent with size and wall thickening/enhancement of biliary tree containing expected pneumob jose. Redemonstration of pigtail transgastric stents terminating in the l eft mid abdomen (where there is a tiny air-fluid cavity at the tip) with trace to mild fluid surrounding the stents that has decreased in extent compared to prior examination however remains contiguous with the decreasing peripancr eatic stranding and fluid as described below. There is new tethering of splenic flexure and proximal descending colon to the stents at the upper quadrant (ser ies 4 image 140 and 190, respectively), the the proximal descending colon loop d emonstrating mild wall thickening at the location of tethering (series 4 image 18 9). No bowel obstruction. There is redemonstration of ill-defined hypodensity at the uncinate process of the pancreas similar to prior exam and r emains difficult to measure. Compared to CT examinations dated 03/18/2021 and 2020, the pancreas parenchyma has demonstrated decreased thickness with in creased conspicuity of nondilated pancreatic duct, which collectively favo rs ongoing changes of chronic inflammation. Previously described areas of decreased pancreatic enhancement at the pancreatic neck no demonstrates alirio lar to background pancreas. The extent of peripancreatic stranding and fluid casanova s decreased from 04/27/2021 study. No loculated focal or gas seen within the f luid. There is persistent significant narrowin g at the portal venous confluence with chronic occlusion of the splenic vein an d partial occlusion of venous collaterals. The SMV and portal veins re main patent. No abdominal aortic aneurysm. The celiac trunk, splenic maryann ry, hepatic arteries and GDA remain patent. The SMA and SOPHY are patent. Ther e is ill-defined fluid bordering parts of these mesenteric arterial vessels wit hout significant narrowing or evidence of pseudoaneurysm. 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 New enhancing hepatic lesion has superio r segment 7 measuring up to 1.5 cm (series 4 image 70), concerning for meta stases. New geographic area of arterial enhancement seen at the superior left he patic lobe (series 3 image 60), could potentially represent an area of inflamm ation/cholangitis. Unremarkable spleen, adrenals, kidneys. Gallbladder remains d ecompressed with enhancement of the gallbladder wall and cystic duct. No davi dence of gastric outlet or bowel obstruction. Stable mildly prominent rig ht lower quadrant mesenteric lymph nodes. Similar ill-defined stranding in the central mesentery. Trace free fluid in the pelvis. No identifiable abscess. Common and prostate. Unremarkable bladder. Stable scattered small lymph no nadira versus peritoneal nodularity particularly on the right paracolic gutt er for example (series 4 image 252 and 242), these are stable compared to study dating back to 03/18/2021. Localized areas of bone marrow changes involving t he thoracolumbar spine, which may be related to radiation changes. This examination was performed in conjun ction with a CT of the chest, which will be reported separately. Procedure Note Tashi Omalley D.O. - 08/13/2021 EXAM: CT ABDOMEN PELVIS WITH IV CONTRAST COMPARISON: Comparison is made to multip le prior studies, most recent CT from 04/27/2021. Comparison made to prior MRI from 09/09/2020 FINDINGS: Stable positioning of biliary stent with size and wall thickening/enhancement of biliary tree containing expected pneumob jose. Redemonstration of pigtail transgastric stents terminating in the l eft mid abdomen (where there is a tiny air-fluid cavity at the tip) with trace to mild fluid surrounding the stents that has decreased in extent compared to prior examination however remains contiguous with the decreasing peripancr eatic stranding and fluid as described below. There is new tethering of splenic flexure and proximal descending colon to the stents at the upper quadrant (ser ies 4 image 140 and 190, respectively), the the proximal descending colon loop d emonstrating mild wall thickening at the location of tethering (series 4 image 18 9). No bowel obstruction. There is redemonstration of ill-defined hypodensity at the uncinate process of the pancreas similar to prior exam and r emains difficult to measure. Compared to CT examinations dated 03/18/2021 and 2020, the pancreas parenchyma has demonstrated decreased thickness with in creased conspicuity of nondilated pancreatic duct, which collectively favo rs ongoing changes of chronic inflammation. Previously described areas of decreased pancreatic enhancement at the pancreatic neck no demonstrates alirio lar to background pancreas. The extent of peripancreatic stranding and fluid casanova s decreased from 04/27/2021 study. No loculated focal or gas seen within the f luid. There is persistent significant narrowin g at the portal venous confluence with chronic occlusion of the splenic vein an d partial occlusion of venous collaterals. The SMV and portal veins re main patent. No abdominal aortic aneurysm. The celiac trunk, splenic maryann ry, hepatic arteries and GDA remain patent. The SMA and SOPHY are patent. Ther e is ill-defined fluid bordering parts of these mesenteric arterial vessels wit hout significant narrowing or evidence of pseudoaneurysm. 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 New enhancing hepatic lesion has superio r segment 7 measuring up to 1.5 cm (series 4 image 70), concerning for meta stases. New geographic area of arterial enhancement seen at the superior left he patic lobe (series 3 image 60), could potentially represent an area of inflamm ation/cholangitis. Unremarkable spleen, adrenals, kidneys. Gallbladder remains d ecompressed with enhancement of the gallbladder wall and cystic duct. No davi dence of gastric outlet or bowel obstruction. Stable mildly prominent rig ht lower quadrant mesenteric lymph nodes. Similar ill-defined stranding in the central mesentery. Trace free fluid in the pelvis. No identifiable abscess. Common and prostate. Unremarkable bladder. Stable scattered small lymph no nadira versus peritoneal nodularity particularly on the right paracolic gutt er for example (series 4 image 252 and 242), these are stable compared to study dating back to 03/18/2021. Localized areas of bone marrow changes involving t he thoracolumbar spine, which may be related to radiation changes. This examination was performed in conjun ction with a CT of the chest, which will be reported separately. IMPRESSION: 1. Grossly unchanged ill-defined pancrea tic uncinate process hypodensity/mass compared to CT dated 04/27/2021. 2. Improved parenchymal enhancement at t he pancreatic neck with overall improving peripancreatic stranding/fluid , however, there are changes of chronic parenchymal inflammation as evidenced by parenchymal thinning and mild pancreatic ductal prominence. Developing pancreas ductal stricture is difficult to exclude. Attention on follow-up imagi ng. 3. Stable transgastric pigtail stent ter minating at the left mid abdomen demonstrating surrounding fluid that rem ains contiguous with peripancreatic stranding/fluid and new tethering of spl enic flexure/proximal descending colon to distal portion of the transgastric st ents. These findings may represent evolving changes of pancreatitis/chronic inflammation extending from the ongoing but resolving pancreatic inflammation. 4. New 1.5 cm enhancing right hepatic lo be lesion, concerning for metastases. 5. Geographic area of arterial enhanceme nt at the superior left hepatic lobe, which could represent inflammation/focal cholecystitis, given scattered biliary ductal wall enhancement/thickening. No d rainable fluid collection in the liver. 6. Similar significant narrowing of the portal venous confluence with chronic occlusion of splenic vein. Portal veins and SMV remain patent. No evidence of pseudoaneurysm. 7. Remainder of examination is grossly u nchanged. Wes WONG CT PROCEDURES CT Chest with IV Contrast (08/13/2021 11:08 AM JOB COMPOSITOR) Anatomical Region Laterality Modality Chest, Thoracic RST LOS, Thoracic ARZ N/A Co mputed Tomography, Computed LOS, Thoracic ARZ LOS, Thoracic FLA Olivier graphy LOS Specimen (Source) Anatomical Collection Method Collection Time Re ceived Time Location / / Volume Laterality 08/13/2021 12:16 PM JOB COMPOSITOR Impressions 08/13/2021 12:41 PM JOB COMPOSITOR 1. Overall, unchanged number and size of multiple bilateral subcentimeter noncalcified solid pulmonary nodules, ho wever, a few nodules are decreased in size. 2. This examination was performed in con junction with a CT of the abdomen and pelvis, which will be reported separatel y. Narrative 08/13/2021 12:41 PM JOB COMPOSITOR EXAM: CT CHEST WITH IV CONTRAST 3D maximum intensity projection (MIP) im ages were created on a dependent workstation as ordered by the treating p rovider and reviewed by the radiologist to increase sensitivity for detection of pulmonary nodules. COMPARISON: CT chest with IV contrast . FINDINGS: No lymphadenopathy. Unchanged trace simple pericardial fluid in the oblique pericardial recess. Right internal jugular Mediport tip term inates in mid right atrium. No pleural effusion. Overall, unchanged number and size of mu ltiple bilateral subcentimeter noncalcified solid pulmonary nodules, ho wever, a few nodules are decreased in size. Examples: 3 mm, peripheral left lo wer lobe posterior basal segment (series 3, image 496), previously 4 mm (remeasur ed on prior series 3, image 495) and decreased size of a sub-3 mm micronodule in the peripheral left upper lobe apicoposterior segment (series 3, image 130). 5 mm, central right upper lobe (series 3, image 234), previously 5 mm. 3 mm, posterior right apex (series 3, 75), previously 3 mm . Mild diffuse basi lar predominant mosaic attenuation suggestive small airway disease; expirat ory images were not obtained to confirm air trapping. No suspicious osseous focus. T7 vertebra l body hemangioma. This examination was performed in conjun ction with a CT of the abdomen and pelvis, which will be reported separatel y. Procedure Note Rosa Isela An M.D. - 08/13/2021Formatt ing of this note might be different from the original. EXAM: CT CHEST WITH IV CONTRAST 3D maximum intensity projection (MIP) im ages were created on a dependent workstation as ordered by the treating p rovider and reviewed by the radiologist to increase sensitivity for detection of pulmonary nodules. COMPARISON: CT chest with IV contrast . FINDINGS: No lymphadenopathy. Unchanged trace simple pericardial fluid in the oblique pericardial recess. Right internal jugular Mediport tip term inates in mid right atrium. No pleural effusion. Overall, unchanged number and size of mu ltiple bilateral subcentimeter noncalcified solid pulmonary nodules, ho wever, a few nodules are decreased in size. Examples: 3 mm, peripheral left lo wer lobe posterior basal segment (series 3, image 496), previously 4 mm (remeasur ed on prior series 3, image 495) and decreased size of a sub-3 mm micronodule in the peripheral left upper lobe apicoposterior segment (series 3, image 130). 5 mm, central right upper lobe (series 3, image 234), previously 5 mm. 3 mm, posterior right apex (series 3, 75), previously 3 mm . Mild diffuse basi lar predominant mosaic attenuation suggestive small airway disease; expirat ory images were not obtained to confirm air trapping. No suspicious osseous focus. T7 vertebra l body hemangioma. This examination was performed in conjun ction with a CT of the abdomen and pelvis, which will be reported separatel y. IMPRESSION: 1. Overall, unchanged number and size of multiple bilateral subcentimeter noncalcified solid pulmonary nodules, ho wever, a few nodules are decreased in size. 2. This examination was performed in con junction with a CT of the abdomen and pelvis, which will be reported separatel y. Wes WONG CT PROCEDURES documented in this encounter Visit Diagnoses Diagnosis Malignant Neoplasm Of Pancreas (HCC) documented in this encounter Administered Medications Inactive Administered Medications - up to 3 most recent administrations Medication Order MAR Action Action Date Dose Rate Site heparin flush 500 Units Given 08/13/2021 11:12 AM JOB COMPOSITOR 500 Units 500 Units, intra-catheter, During hospitalization, line care, Prior to discharge, Starting on Mon08/13/21 at 1025, For 1 dose, Implanted Vascular Access Device (IVAD) Venous Non-Valved: Following saline flush prior to discharge. iohexoL 300 mg iodine/mL solution 1-200 mL Given 08/13/2021 10:54 AM JOB COMPOSITOR 140 mL (OMNIPAQUE) 1-200 mL, intravenous, Once in imaging, contrast, Starting on Mon08/13/21 at 1024, For 1 dose, Imaging Protocol Orders, Dose per Radiant Medication Guidelines sodium chloride (PF) 0.9 % injection 1-1 00 mL Given 08/13/2021 10:54 AM JOB COMPOSITOR 50 mL 1-100 mL, intravenous, Once, On Mon08/13/21 at 1030, For 1 dose, Imaging Protocol Orders sodium chloride 0.9 % injection 10 mL Given 08/13/2021 11:12 AM JOB COMPOSITOR 10 mL 10 mL, intravenous, As needed, line care, Implanted Vascular Access Device (IVAD) Venous Non-Valved, Starting on Mon08/13/21 at 1025, Prior to and following infusion, between multiple consecutive infusions, and prior to blood sampling, Given 08/13/2021 10:27 AM JOB COMPOSITOR 10 mL documented in this encounter Care Teams Medical Transcription Editor Relationship Specialty Start Date End Date Elsewhere, Pcp PCP - General Family Medicine 08/12/20 documented as of this encounter
--- OUTSIDE RECORDS SUMMARY | 2022-06-18 16:10 | XMS_ITS | Encounter Summary ---
:1965 Author Organization [facility] Address [address] [place] [id number] Care Team Providers Name Role Phone Elsewhere, Pcp Primary Care Provider Unavailable Reason for Referral Outpatient (Routine) - Closed Specialty Diagnoses / Procedures Referred By Contact Refer red To Contact Oncology Wes Mantilla M .D. [facility] 200 [place], [place] [phone] Referral ID Status Reason Start Date Expiration Date Visits Requ ested Visits Authorized [id number] Closed 06/30/2021 06/30/2022 1 1 RI/CAT/PET Scan (Routine) - Closed Specialty Diagnoses / Procedures Referred By Contact Refer red To Contact Radiology Diagnoses Malignant Neoplasm Of Pancreas (HCC) Wes Mantilla M.D. [facility] Procedures CT Abdomen Pelvis with IV Contrast [place] CT ABD&PELVIS W CNTRST 200 [place], [place] [phone] Referral ID Status Reason Start Date Expiration Date Visits Requ ested Visits Authorized [id number] Closed 06/30/2021 06/30/2022 1 1 RI/CAT/PET Scan (Routine) - Closed Specialty Diagnoses / Procedures Referred By Contact Refer red To Contact Radiology Diagnoses Malignant Neoplasm Of Pancreas (HCC) Wes Mantilla M.D. [place] [facility] Procedures CT Chest with IV Contrast VT CT THORAX W CNTRST VT 3D WO IND WORKSTATION [address] [place] [phone] Referral ID Status Reason Start Date Expiration Date Visits Requ ested Visits Authorized [id number] Closed 06/30/2021 06/30/2022 1 1 Encounter Details Date Type Department Care Team Description 06/30/2021 Orders Only Department of Oncology Wes Mantilla, Malignant Neoplasm Of in Chanelle Pedromo Pancreas (HCC) [address] (Primary Dx) [address] [place] [phone] Social History Tobacco Use Types Packs/Day Years [...] How often do you attend pentecostal or cheondoism services? Never 01/15/2021 Do you [...] at Date Recorded Male 08/18/2021 2:55 PM [employer] documented as of this encounter Plan of Treatment Upcoming Encounters Date Type Specialty Care Team Description 06/22/2022 Lab Laboratory Medicine Maria Del Rosario Gomez AP RN, C.N.P., M.S. [address] [place] [phone] (Mj godoy) 06/22/2022 [facility] Remy.N .P., M.S. [address] [place] [phone] (Mj rk) 06/29/2022 Lab Laboratory Medicine Maria Del Rosario Gomez AP RN, C.N.P., M.S. [address] [place] [phone] (Mj godoy) 06/29/2022 Infusion Oncology Maria Del Rosario Gomez APRN, C.N .Pamela., M.S. [address] [place] [phone] (Mj godoy) Scheduled Referrals Name Type Priority Associated Order Schedule Diagnoses Oncology office Outpatient Referral Routine Expec sally: visit (clinic) 07/29/2021 Surveillance; GIH (Approxima te), Pancreatic Expires: 06/30/2024 documented as of this encounter Results CT Abdomen Pelvis with IV Contrast (08/13/2021 11:08 AM [employer]) Anatomical Region Laterality Modality Abdomen, Pelvis, Abdominal RST LOS, N/A Comp uted Tomography, Computed Abdominal ARZ LOS, Abdominal FLA LOS Dileep ography Specimen (Source) Anatomical Collection Method Collection Time Re ceived Time Location / / Volume Laterality 08/13/2021 12:09 PM [employer] Impressions 08/13/2021 1:07 PM [employer] 1. ??Grossly unchanged ill-defined pancreatic uncinate process [...] is grossly unchanged. Narrative 08/13/2021 1:07 PM [employer] EXAM: ??CT ABDOMEN PELVIS WITH IV CONTRAST COMPARISON: ??Comparison is made to [facility] iple prior studies, most recent CT from [...] Chest with IV Contrast (08/13/2021 11:08 AM [employer]) Anatomical Region Laterality Modality Chest, Thoracic RST LOS, Thoracic ARZ N/A Co mputed Tomography, Computed LOS, Thoracic ARZ LOS, Thoracic FLA Olivier graphy LOS Specimen (Source) Anatomical Collection Method Collection Time Re ceived Time Location / / Volume Laterality 08/13/2021 12:16 PM [employer] Impressions 08/13/2021 12:41 PM [employer] 1. Overall, unchanged number and size of multiple bilateral subcentimeter noncalcified solid pulmonary nodules, ho wever, a few nodules are decreased in size. 2. This examination was performed in con junction with a CT of the abdomen and pelvis, which will be reported separatel y. Narrative 08/13/2021 12:41 PM [employer] EXAM: CT CHEST WITH IV CONTRAST 3D [...] which will be reported separatel y. Wes Mantilla M.D. IMG CT PROCEDURES (ABNORMAL) Sodium (08/13/2021 9:52 AM [employer]) athologist Signature Sodium, S 146 (H) 135 - 145 08/13/2021 DTL mmol/L 2:44 PM [employer] Specimen Anatomical Collection Method Collection Time Receive d Time (Source) Location / / Volume Laterality Blood (Blood, 08/13/2021 9:52 AM 08/13/20 21 Venous) [employer] 10:30 AM [employer] Wes Mantilla M.D. LAB BLOOD ADD-ON Performing Organization Address City/State/ZIP Code Phon e Number [facility] - [address] [place], [place] [address] [facility] [place] [address] Laboratories-[facility] [address] Potassium (08/13/2021 9:52 AM [employer]) athologist Signature Potassium, S 4.1 3.6 - 5.2 08/13/2021 DTL mmol/L 2:44 PM [employer] Specimen Anatomical Collection Method Collection Time Receive d Time (Source) Location / / Volume Laterality Blood (Blood, 08/13/2021 9:52 AM 08/13/20 Venous) [employer] 10:30 AM [employer] Wes Mantilla M.D. LAB BLOOD ADD-ON Performing Organization Address City/State/ZIP Code Phon e Number [facility] - 200 [place], [place] [address] [place] [address] [place] [address] Laboratories-[address] Creatinine with Estimated GFR (08/13/2021 9:52 AM [employer]) P athologist Signature Creatinine 0.89 0.74 - 08/13/2021 DTL 1.35 mg/dL 2:44 PM [employer] eGFR-Non >90 >=60 08/13/2021 DTL Black/ mL/min/BSA 2:44 PM [employer] Chinese Comment: ----ADDITIONAL INFORMATION---- Estimated GFR calculated using the 2009 CKD_EPI creatinine equation. eGFR-Black/ >90 >=60 mL/min/BSA 2020 2:44 PM [employer] DTL Comment: ----ADDITIONAL INFORMATION---- Estimated GFR calculated using the 2009 CKD_EPI creatinine equation. Specimen Anatomical Collection Method Collection Time Receive d Time (Source) Location / / Volume Laterality Blood (Blood, 08/13/2021 9:52 AM 08/13/20 Venous) [employer] 10:30 AM [employer] Wse Mantilla M.D. LAB BLOOD ADD-ON Performing Organization Address City/[facility] Phon e Number [facility] - [address] [place] [address] Laboratories-[address] (ABNORMAL) CBC with Differential, Blood (08/13/2021 9:52 AM [employer]) Patholo gist Method Time Signature Hemoglobin 13.2 13.2 - 08/13/2021 DTL 16.6 g/dL 10:16 AM [employer] Hematocrit 40.4 38.3 - 08/13/2021 DTL 48.6 % 10:16 AM [employer] Erythrocytes 4.74 4.35 - 08/13/2021 DTL 5.65 10:16 AM [employer] x10(12)/L MCV 85.2 78.2 - 08/13/2021 DTL 97.9 fL 10:16 AM [employer] RBC Distrib Width 12.9 11.8 - 08/13/2021 DTL 14.5 % 10:16 AM [employer] Platelet Count 183 135 - 317 08/13/2021 DTL x10(9)/L 10:16 AM [employer] Leukocytes 5.8 3.4 - 9.6 08/13/2021 DTL x10(9)/L 10:16 AM [employer] Neutrophils 4.39 1.56 - 08/13/2021 DTL 6.45 10:16 AM [employer] x10(9)/L Lymphocytes 0.72 (L) 0.95 - 08/13/2021 DTL 3.07 10:16 AM [employer] x10(9)/L Monocytes 0.50 0.26 - 08/13/2021 DTL 0.81 10:16 AM [employer] x10(9)/L Eosinophils 0.13 0.03 - 08/13/2021 DTL 0.48 10:16 AM [employer] x10(9)/L Basophils <0.03 0.01 - 08/13/2021 DTL 0.08 10:16 AM [employer] x10(9)/L Specimen Anatomical Collection Method Collection Time Receive d Time (Source) Location / / Volume Laterality Blood (Blood, 08/13/2021 9:52 AM 08/13/20 21 Venous) [employer] 10:10 AM [employer] Wes Mantilla M.D. LAB BLOOD ADD-ON Performing Organization Address City/State/ZIP Code Phon e Number [facility] - [address] [place], [place] [address] [facility] [place] [address] Laboratories-[facility] [address] [facility] Carbohydrate Antigen 19-9 (CA 19-9) (08/13/2021 9:52 AM [employer]) P athologist Signature Carbohydrate Ag 18 <35 U/mL 08/13/2021 SDSC 19-9, S 1:39 PM [employer] Comment: ----ADDITIONAL INFORMATION---- The testing method is an immunoenzymatic assay manufactured by [employer] and performed on the [employer] 800. ? Values obtained with different assay met hods or kits may be different and cannot be used inte rchangeably. ? Test results cannot be interpreted as ab solute evidence for the presence or absence of malignant disease. Specimen Anatomical Collection Method Collection Time Receive d Time (Source) Location / / Volume Laterality Blood (Blood, 08/13/2021 9:52 AM 08/13/20 Venous) [employer] 12:26 PM [employer] Wes Mantilla M.D. LAB BLOOD ADD-ON Performing Organization Address City/[facility]/ZIP Code Phon e Number [facility] [address] [place], [place] [address] [facility] [place] [address] Laboratory Medicine and Pathology [address] [place] Bilirubin, Total (08/13/2021 9:52 AM [employer]) P athologist Signature Bilirubin, 0.4 <=1.2 mg/dL 08/13/2021 DTL Total, S 2:44 PM [employer] Specimen Anatomical Collection Method Collection Time Receive d Time (Source) Location / / Volume Laterality Blood (Blood, 08/13/2021 9:52 AM 08/13/20 Venous) [employer] 10:30 AM [employer] Wes Mantilla M.D. LAB BLOOD ADD-ON Performing Organization Address City/[facility]/ZIP Code Phon e Number [facility] - [address] [place], [place] [address] [place] [address] Bilirubin, Direct (08/13/2021 9:52 AM T[employer]) athologist Signature Bilirubin, <0.2 0.0 - 0.3 08/14/2021 DTL Direct, S mg/dL 10:41 PM [employer] Specimen Anatomical Collection Method Collection Time Receive d Time (Source) Location / / Volume Laterality Blood (Blood, 08/13/2021 9:52 AM 08/13/20 Venous) [employer] 10:30 AM [employer] Wes Mantilla M.D. LAB BLOOD ADD-ON Performing Organization Address City/State/ZIP Code Phon e Number [facility] - [address] [place], [place] [address] [facility] [place] [address] [facility] [address] AST (Aspartate Aminotransferase) (08/13/2021 9:52 AM T[employer]) Patholo gist Method Time Signature Aspartate 28 8 - 48 08/13/2021 DTL Aminotransferase U/L 2:44 PM [employer] (AST), S Specimen Anatomical Collection Method Collection Time Receive d Time (Source) Location / / Volume Laterality Blood (Blood, 08/13/2021 9:52 AM 08/13/20 Venous) [employer] 10:30 AM [employer] Wes Mantilla M.D. LAB BLOOD ADD-ON Performing Organization Address City/State/ZIP Code Phon e Number [facility] - [address] [facility] (ABNORMAL) Alkaline Phosphatase (08/13/2021 9:52 AM [employer]) P athologist Signature Alkaline 151 (H) 40 - 129 08/13/2021 DTL Phosphatase, S U/L 2:44 PM [employer] Specimen Anatomical Collection Method Collection Time Receive d Time (Source) Location / / Volume Laterality Blood (Blood, 08/13/2021 9:52 AM 08/13/20 Venous) [employer] 10:30 AM [employer] Wes Mantilla M.D. LAB BLOOD ADD-ON Performing Organization Address City/[facility]/ZIP Code Phon e Number [facility] - [address] [facility] Albumin (08/13/2021 9:52 AM T[employer]) P athologist Signature Albumin, S 4.1 3.5 - 5.0 08/13/2021 DTL g/dL 2:44 PM [employer] Specimen Anatomical Collection Method Collection Time Receive d Time (Source) Location / / Volume Laterality Blood (Blood, 08/13/2021 9:52 AM 08/13/20 Venous) [employer] 10:30 AM [employer] Wes Mantilla M.D. LAB BLOOD ADD-ON Performing Organization Address City/State/ZIP Code Phon e Number [facility] - [address] [place] [address] 05 [place], [place] [phone] [place] [address] documented in this encounter Visit Diagnoses Diagnosis Malignant Neoplasm Of Pancreas (HCC) - P rimary Malignant Neoplasm Of Pancreas (HCC) documented in this encounter Care Teams Music Historian Relationship Specialty Start Date End Date Elsewhere, Pcp PCP - General Family Medicine 08/12/20 documented as of this encounter
--- OUTSIDE RECORDS SUMMARY | 2022-06-18 16:10 | XMS_ITS | Encounter Summary ---
:1965 Author Organization [facility] Address [address] [place] [address] Care Team Providers Name Role Phone Elsewhere, Pcp Primary Care Provider Unavailable Encounter Details Date Type Department Care Team Description 08/13/2021 Lab Department of Infusion Wes Mantilla, Malignant Neoplasm Of Pancreas (HCC) (Primary Dx); Therapy in [place] [address] [facility] [address] [place] [phone] (Wo rk) Social History Tobacco Use Types [...] How often do you attend cheondoism or cheondoism services? Never 01/15/2021 Do you [...] Date Recorded Male 08/18/2021 2:55 PM SPECIAL FORCES SPECIALIST documented as of this encounter Plan of Treatment Upcoming Encounters Date Type Specialty Care Team Description 06/22/2022 Lab Laboratory Medicine Maria Del Rosario Gomez AP RN, C.N.P., M.S. [address] [place] [address] [phone] (Wo rk) 06/22/2022 Infusion Oncology Maria Del Rosario Gomez APRN, C.N .P., M.S. [address] [place] [address] [phone] (Wo rk) 06/29/2022 Lab Laboratory Medicine Maria Del Rosario Gomez AP RN, C.N.P., M.S. [address] [place] [address] [phone] (Wo rk) 06/29/2022 Infusion Oncology Maria Del Rosario Gomez APRN, C.N .P., M.S. [address] [place] [address] [phone] (Wo rk) documented as of this encounter Procedures Procedure Name Priority Date/Time Associated Comments Diagnosis CARBOHYDRATE AG 19-9 (CA Routine 08/13/2021 9:52 Malignant Siva plasm Results for this 19-9), S AM SPECIAL FORCES SPECIALIST Of Pancreas (HCC) procedure are in the results section. CBC WITH DIFFERENTIAL, B Routine 08/13/2021 9:52 Malignant Siva plasm Results for this AM SPECIAL FORCES SPECIALIST Of Pancreas (HCC) procedure are in the results section. ASPARTATE Routine 08/13/2021 9:52 Malignant Neoplasm Result s for this AMINOTRANSFERASE (AST), AM SPECIAL FORCES SPECIALIST Of Pancreas (HCC) procedure are in S/P the results section. SODIUM, S/P Routine 08/13/2021 9:52 Malignant Neoplasm Result s for this AM [employer] FORCES SPECIALIST Of Pancreas (HCC) procedure are in the results section. POTASSIUM, S/P Routine 08/13/2021 9:52 Malignant Neoplasm Resu lts for this AM SPECIAL FORCES SPECIALIST Of Pancreas (HCC) procedure are in the results section. ALKALINE PHOSPHATASE, Routine 08/13/2021 9:52 Malignant Neopla sm Results for this S/P AM SPECIAL FORCES SPECIALIST Of Pancreas (HCC) procedure are in the results section. CREATININE WITH EGFR, Routine 08/13/2021 9:52 Malignant Neopla sm Results for this S/P AM SPECIAL FORCES SPECIALIST Of Pancreas (HCC) procedure are in the results section. BILIRUBIN DIRECT, S/P Routine 08/13/2021 9:52 Malignant Neopla sm Results for this AM [employer] FORCES SPECIALIST Of Pancreas (HCC) procedure are in the results section. BILIRUBIN, TOT, S/P Routine 08/13/2021 9:52 Malignant Neoplasm Results for this AM SPECIAL FORCES SPECIALIST Of Pancreas (HCC) procedure are in the results section. ALBUMIN, S/P Routine 08/13/2021 9:52 Malignant Neoplasm Result s for this AM SPECIAL FORCES SPECIALIST Of Pancreas (HCC) procedure are in the results section. documented in this encounter Results (ABNORMAL) Sodium (08/13/2021 9:52 AM SPECIAL FORCES SPECIALIST) athologist Signature Sodium, S 146 (H) 135 - 145 08/13/2021 DTL mmol/L 2:44 PM SPECIAL FORCES SPECIALIST Specimen Anatomical Collection Method Collection Time Receive d Time (Source) Location / / Volume Laterality Blood (Blood, 08/13/2021 9:52 AM 08/13/20 Venous) SPECIAL FORCES SPECIALIST 10:30 AM SPECIAL FORCES SPECIALIST Wes Mantilla M.D. LAB BLOOD ADD-ON Performing Organization Address City/[facility] Phon e Number [facility] - [address] [address] [facility] [address] Potassium (08/13/2021 9:52 AM SPECIAL FORCES SPECIALIST) athologist Signature Potassium, S 4.1 3.6 - 5.2 08/13/2021 DTL mmol/L 2:44 PM SPECIAL FORCES SPECIALIST Specimen Anatomical Collection Method Collection Time Receive d Time (Source) Location / / Volume Laterality Blood (Blood, 08/13/2021 9:52 AM 08/13/20 Venous) SPECIAL FORCES SPECIALIST 10:30 AM SPECIAL FORCES SPECIALIST Wes Mantilla M.D. LAB BLOOD ADD-ON Performing Organization Address City/[facility] Phon e Number [facility] - [address] [address] [facility] [address] [facility] Creatinine with Estimated GFR (08/13/2021 9:52 AM SPECIAL FORCES SPECIALIST) P athologist Signature Creatinine 0.89 0.74 - 08/13/2021 DTL 1.35 mg/dL 2:44 PM SPECIAL FORCES SPECIALIST eGFR-Non >90 >=60 08/13/2021 DTL Black/ mL/min/BSA 2:44 PM SPECIAL FORCES SPECIALIST Cameroonian Comment: ----ADDITIONAL INFORMATION---- Estimated GFR calculated using the 2009 CKD_EPI creatinine equation. eGFR-Black/ >90 >=60 mL/min/BSA 2020 2:44 PM SPECIAL FORCES SPECIALIST DTL Comment: ----ADDITIONAL INFORMATION---- Estimated GFR calculated using the 2009 CKD_EPI creatinine equation. Specimen Anatomical Collection Method Collection Time Receive d Time (Source) Location / / Volume Laterality Blood (Blood, 08/13/2021 9:52 AM 08/13/20 21 Venous) SPECIAL FORCES SPECIALIST 10:30 AM SPECIAL FORCES SPECIALIST Wes Mantilla M.D. LAB BLOOD ADD-ON Performing Organization Address City/State/ZIP Code Phon e Number [facility] - [address] [place], [place] [address] [facility] [place] [address] [facility] 200 [facility] (ABNORMAL) CBC with Differential, Blood (08/13/2021 9:52 AM SPECIAL FORCES SPECIALIST) Patholo gist Method Time Signature Hemoglobin 13.2 13.2 - 08/13/2021 DTL 16.6 g/dL 10:16 AM SPECIAL FORCES SPECIALIST Hematocrit 40.4 38.3 - 08/13/2021 DTL 48.6 % 10:16 AM SPECIAL FORCES SPECIALIST Erythrocytes 4.74 4.35 - 08/13/2021 DTL 5.65 10:16 AM SPECIAL FORCES SPECIALIST x10(12)/L MCV 85.2 78.2 - 08/13/2021 DTL 97.9 fL 10:16 AM SPECIAL FORCES SPECIALIST RBC Distrib Width 12.9 11.8 - 08/13/2021 DTL 14.5 % 10:16 AM SPECIAL FORCES SPECIALIST Platelet Count 183 135 - 317 08/13/2021 DTL x10(9)/L 10:16 AM SPECIAL FORCES SPECIALIST Leukocytes 5.8 3.4 - 9.6 08/13/2021 DTL x10(9)/L 10:16 AM SPECIAL FORCES SPECIALIST Neutrophils 4.39 1.56 - 08/13/2021 DTL 6.45 10:16 AM SPECIAL FORCES SPECIALIST x10(9)/L Lymphocytes 0.72 (L) 0.95 - 08/13/2021 DTL 3.07 10:16 AM SPECIAL FORCES SPECIALIST x10(9)/L Monocytes 0.50 0.26 - 08/13/2021 DTL 0.81 10:16 AM SPECIAL FORCES SPECIALIST x10(9)/L Eosinophils 0.13 0.03 - 08/13/2021 DTL 0.48 10:16 AM SPECIAL FORCES SPECIALIST x10(9)/L Basophils <0.03 0.01 - 08/13/2021 DTL 0.08 10:16 AM SPECIAL FORCES SPECIALIST x10(9)/L Specimen Anatomical Collection Method Collection Time Receive d Time (Source) Location / / Volume Laterality Blood (Blood, 08/13/2021 9:52 AM 08/13/20 Venous) SPECIAL FORCES SPECIALIST 10:10 AM SPECIAL FORCES SPECIALIST Wes Mantilla M.D. LAB BLOOD ADD-ON Performing Organization Address City/State/[facility] Code Phon e Number [facility] - [address] [place], [place] [address] [facility] [place] [address] [facility] 200 [facility] Carbohydrate Antigen 19-9 (CA 19-9) (08/13/2021 9:52 AM SPECIAL FORCES SPECIALIST) P athologist Signature Carbohydrate Ag 18 <35 U/mL 08/13/2021 SDSC 19-9, S 1:39 PM SPECIAL FORCES SPECIALIST Comment: ----ADDITIONAL INFORMATION---- The testing method is an immunoenzymatic assay manufactured by [employer] and performed on the [employer] DxI 800. ? Values obtained with different assay met hods or kits may be different and cannot be used inte rchangeably. ? Test results cannot be interpreted as ab solute evidence for the presence or absence of malignant disease. Specimen Anatomical Collection Method Collection Time Receive d Time (Source) Location / / Volume Laterality Blood (Blood, 08/13/2021 9:52 AM 08/13/20 21 Venous) SPECIAL FORCES SPECIALIST 12:26 PM SPECIAL FORCES SPECIALIST Wes R Jose Rafael M.D. LAB BLOOD ADD-ON Performing Organization Address City/[facility]/ZIP Code Phon e Number [facility] [address] [place], [place] [address] [facility] [place] [address] Laboratory Medicine and Pathology [address] [place] Bilirubin, Total (08/13/2021 9:52 AM SPECIAL FORCES SPECIALIST) P athologist Signature Bilirubin, 0.4 <=1.2 mg/dL 08/13/2021 DTL Total, S 2:44 PM SPECIAL FORCES SPECIALIST Specimen Anatomical Collection Method Collection Time Receive d Time (Source) Location / / Volume Laterality Blood (Blood, 08/13/2021 9:52 AM 08/13/20 Venous) SPECIAL FORCES SPECIALIST 10:30 AM SPECIAL FORCES SPECIALIST Wes Mantilla M.D. LAB BLOOD ADD-ON Performing Organization Address City/[facility]/ZIP [facility] Phon e Number [facility] - [address] [place], [place] [address] [facility] [place] [id number] [place] [address] Bilirubin, Direct (08/13/2021 9:52 AM SPECIAL FORCES SPECIALIST) P athologist Signature Bilirubin, <0.2 0.0 - 0.3 08/14/2021 DTL Direct, S mg/dL 10:41 PM SPECIAL FORCES SPECIALIST Specimen Anatomical Collection Method Collection Time Receive d Time (Source) Location / / Volume Laterality Blood (Blood, 08/13/2021 9:52 AM 08/13/20 Venous) SPECIAL FORCES SPECIALIST 10:30 AM SPECIAL FORCES SPECIALIST Wes Mantilla M.D. LAB BLOOD ADD-ON Performing Organization Address City/[facility]/ZIP [facility] Phon e Number [facility] - [address] [place], [place] [address] [facility] [place] [address] [facility] [address] AST (Aspartate Aminotransferase) (08/13/2021 9:52 AM SPECIAL FORCES SPECIALIST) [facility] Method Time Signature Aspartate 28 8 - 48 08/13/2021 DTL Aminotransferase U/L 2:44 PM SPECIAL FORCES SPECIALIST (AST), S Specimen Anatomical Collection Method Collection Time Receive d Time (Source) Location / / Volume Laterality Blood (Blood, 08/13/2021 9:52 AM 08/13/20 Venous) SPECIAL FORCES SPECIALIST 10:30 AM [employer] FORCES SPECIALIST Wes Mantilla M.D. LAB BLOOD ADD-ON Performing Organization Address City/[facility] Phon e Number [facility] - [address] (ABNORMAL) Alkaline Phosphatase (08/13/2021 9:52 AM SPECIAL FORCES SPECIALIST) P athologist Signature Alkaline 151 (H) 40 - 129 08/13/2021 DTL Phosphatase, S U/L 2:44 PM SPECIAL FORCES SPECIALIST Specimen Anatomical Collection Method Collection Time Receive d Time (Source) Location / / Volume Laterality Blood (Blood, 08/13/2021 9:52 AM 08/13/20 Venous) SPECIAL FORCES SPECIALIST 10:30 AM SPECIAL FORCES SPECIALIST Wes Mantilla M.D. LAB BLOOD ADD-ON Performing Organization Address [facility] Phon e Number [facility] - [address] Albumin (08/13/2021 9:52 AM SPECIAL FORCES SPECIALIST) P athologist Signature Albumin, S 4.1 3.5 - 5.0 08/13/2021 DTL g/dL 2:44 PM SPECIAL FORCES SPECIALIST Specimen Anatomical Collection Method Collection Time Receive d Time (Source) Location / / Volume Laterality Blood (Blood, 08/13/2021 9:52 AM 08/13/20 Venous) SPECIAL FORCES SPECIALIST 10:30 AM SPECIAL FORCES SPECIALIST Wes Mantilla M.D. LAB BLOOD ADD-ON Performing Organization Address City/[facility]/ZIP [facility] Phon e Number [facility] - [address] documented in this encounter Visit Diagnoses Diagnosis Malignant Neoplasm Of Pancreas (HCC) - P rimary Bacteremia documented in this encounter Administered Medications Inactive Administered Medications - up to 3 most recent administrations Medication Order MAR Action Action Date Dose Rate Site heparin flush 500 Units Given 08/13/2021 9:45 AM SPECIAL FORCES SPECIALIST 500 Units 500 Units, intra-catheter, As needed, line care, Starting on Mon08/13/21 at 0943, When no infusion to maintain patency: For IVAD accessed, not in use, and/or prior to hospital discharge, flush every 7 days after 0.9% preservative-free NaCL flush. For IVAD NOT accessed or used, flush every 4 weeks after 0.9% preservative-free NaCL flush. sodium chloride 0.9 % injection 10 mL Given 08/13/2021 9:44 AM SPECIAL FORCES SPECIALIST 10 mL 10 mL, intra-catheter, As needed, line care, Starting on Mon08/13/21 at 0943, When IVAD Accessed and in Use: Flush prior to and following infusion, between multiple consecutive infusions, and prior to blood sampling. sodium chloride 0.9 % injection 20 mL Given 08/13/2021 9:44 AM SPECIAL FORCES SPECIALIST 20 mL 20 mL, intra-catheter, As needed, line care, Starting on Mon08/13/21 at 0943, When IVAD Accessed and in Use: Flush post blood transfusion or post blood sampling. documented in this encounter Care Teams Knowledge Management Advisor Relationship Specialty Start Date End Date Elsewhere, Pcp PCP - General Family Medicine 08/12/20 documented as of this encounter
--- OUTSIDE RECORDS SUMMARY | 2022-06-18 16:10 | XMS_ITS | Encounter Summary ---
:1965 Author Organization [facility] Address [address] [place] [address] Care Team Providers Name Role Phone Elsewhere, Pcp Primary Care Provider Unavailable Reason for Visit Reason Comments Med Refill Encounter Details Date Type Department Care Team Description 08/04/2021 Refill Department of Palliative Care Marcelina Gonzalez, Med Refill in [facility] elke P.ARiaz-CRiaz [address] [facility] [address] [place] [address] [place] [address] [phone] (Wo rk) Social History Tobacco Use Types [...] How often do you attend faith or shinto services? 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 [address] [place] [phone] (Wo rk) 06/22/2022 Infusion Oncology Maria Del Rosario Gomez APRN, C.N .P., M.S. [address] [place] [phone] (Wo rk) 06/29/2022 Lab Laboratory Medicine Maria Del Rosario Gomez AP RN, C.N.P., M.S. [address] [place] [phone] (Wo rk) 06/29/2022 Infusion Oncology Maria Del Rosario Gomez APRN, C.N .P., M.S. [address] [place] [phone] (Wo rk) documented as of this encounter Visit Diagnoses Not on filedocumented in this encounter Additional Health Concerns Infection Onset Date Last Indicated Resolved Time COVID19 Pending 08/22/2021 08/22/2021 08/22/2021 1:55 PM CHEF DE CUISINE documented as of this encounter Care Teams Roofing Applicator Relationship Specialty Start Date End Date Elsewhere, Pcp PCP - General Family Medicine 08/12/20 documented as of this encounter
--- OUTSIDE RECORDS SUMMARY | 2022-06-18 16:10 | XMS_ITS | Encounter Summary ---
:1965 Author Organization [facility] Address [address] [place] [address] Care Team Providers Name Role Phone Elsewhere, Pcp Primary Care Provider Unavailable Reason for Visit Reason Comments Appointment Encounter Details Date Type Department Care Team Description 06/29/2021 Clinical Communication Department of Oncology Wes Mantilla Appointment in Randall Perdomo M.D. [place] [address] [address] [facility] [address] [place] [address] [phone] Social History Tobacco Use Types Packs/Day Years [...] How often do you attend anabaptism or adventism services? 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 Please submit orders. Please reply to RST ONC SCHEDULING POOL Thank you Meryl Appemilia Office Follow Up Pac: Clb to pt documented in this encounter Plan of Treatment Upcoming Encounters Date Type Specialty Care Team Description 06/22/2022 Lab Laboratory Medicine Maria Del Rosario Gomez AP RN, C.N.P., M.S. [address] [place] [phone] (Mj godoy) 06/22/2022 Infusion Oncology Maria Del Rosario Gomez APRN, C.N .P., M.S. [address] [place] [phone] (Mj godoy) 06/29/2022 Lab Laboratory Medicine Maria Del Rosario Gomez AP RN, C.N.P., M.S. [address] [place] [address] [phone] (Mj godoy) 06/29/2022 Infusion Oncology Maria Del Rosario Gomez APRN, C.N .P., M.S. [address] [place] [address] [phone] (Mj godoy) documented as of this encounter Visit Diagnoses Not on filedocumented in this encounter Care Teams Newborn Hearing Screener Relationship Specialty Start Date End Date Elsewhere, Pcp PCP - General Family Medicine 08/12/20 documented as of this encounter
--- OUTSIDE RECORDS SUMMARY | 2022-06-18 16:10 | XMS_ITS | Encounter Summary ---
:1965 Author Organization [facility] Address [address] [place] [address] Care Team Providers Name Role Phone Elsewhere, Pcp Primary Care Provider Unavailable Reason for Referral Outpatient (Routine) - Closed Specialty Diagnoses / Procedures Referred By Contact Refer red To Contact Diagnoses Malignant Neoplasm Of Pancreas (HCC) Aura Zheng D.O. 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 [facility] [address] [place] [phone] Referral ID Status Reason Start Date Expiration Date Visits Requ ested Visits Authorized [id number] Closed 05/14/2021 05/14/2022 1 1 Reason for Visit Outpatient (Routine) - Closed Specialty Diagnoses / Procedures Referred By Contact Refer red To Contact Palliative Medicine Jesse Kerns M.D . [facility] [address] [place] [phone] Referral ID Status Reason Start Date Expiration Date Visits Requ ested Visits Authorized [id number] Closed 04/01/2021 04/01/2022 1 1 Encounter Details Date Type Department Care Team Description 05/14/2021 Office Visit Department of Jesse Kerns M.D. [address] [place] [address] Malignant Neoplasm Of Pancreas (HCC) (Pr imary Dx); Palliative Care in Aura Zheng D.O. [address] [place] [phone] Pain Cancer Associated; [place], [place] Pain Back; 200 [facility] Constipation; [place], [place] Malnutrition S evere Protein-Calorie (HCC); [phone] Anxiety Generalized Disorder ; [phone] Palliative Care Social History Tobacco Use Types Packs/Day Years [...] How often do you attend voodoo or amish services? 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 - 05/14/2021 9:30 AM CDT SUBJECTIVE CHIEF COMPLAINT/REASON FOR VISIT Adam Campbell is a 55 y.o. male with a diagnosis of locally advanced pancreatic adenocarcinomawho presents for evaluation of non-pain symptoms, pain and psychosocial support. Interval History: Mr Campbell has been doing well since his last visit. His pain has been well controlled and he has beenable to wean his hydromorphone. He is now using 1/2 to 1 tablet in the morning and often this is hisonly dose of the day. He has tried completely stopping it but had return of pain that limited his activity tolerance. 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 He describes this as uncomfortable tingling and cold sensation. He is using gabapentin 300 mg at bedtime and feels this has been well tolerated and helpful. He is sleeping well; rarely utilized medical cannabis or trazodone for sleep. He has been able to really watch what he eats and now meal plans. This has significantly improved his abdominal discomfort. He utilizes a low sugar, reduced process diet now. He is gaining weight. Bowels moving well; not currently needing bowel medications. He has been increasing his activity. 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 He has also been using a stationary bike approx 15 minutes each day. He wants to be as active as possible until his cancer flares up again. ROS: As per HPI and patient reported data otherwise reviewed and non-contributory in the course of the current encounter. [place] Scores- not completed Palliative Functional Assessment 70%-Reduced ambulation, Unable to do normal job/work with significant evidence of disease, Full self-care, Normal or reduced intake, Full level of consciousness NCCN Distress Thermometer Thermometer distress score (0 = no distress, 10 = extreme distress): 0 Practical problems: NCCN Distress - practical: none Family problems: NCCN Distress- Family: none Emotional problems: NCCN Distress- emotional: none Spiritual/amish concerns: no OBJECTIVE PHYSICAL EXAM Temperature: [36.5 ??C] 36.5 ??C Blood Pressure: (108)/(75) 108/75 SpO2: [100 %] 100 % Pulse Rate: [72] 72 Physical Exam General: Fatigued; no acute distress Eyes: Conjunctiva clear, sclera non-icteric Lungs: No use of accessory muscles of respiration, non-labored breathing pattern. Extremities: No lower extremity edema noted. Musculoskeletal: Normal gait. Psychiatric: Oriented X3, intact recent and remote memory, judgment and insight, congruent mood and affect. DIAGNOSTICS I have reviewed labs and CT. ASSESSMENT / PLAN #1 Malignant Neoplasm Of Pancreas (HCC) #2 Pain Cancer Associated #3 Pain Back #4 Constipation #5 Malnutrition Severe Protein-Calorie (HCC) #6 Anxiety Generalized Disorder #7 Palliative Care Adam Campbell is a 55 y.o. male with a diagnosis of locally advanced pancreatic adenocarcinomawho presents for evaluation of non-pain symptoms, pain and psychosocial support. Overall, he has done quite well. Symptoms well controlled and he has been successful with opioid weaning. RECOMMENDATIONS Pain: Opioid Summary ??? Opioid Need: This patient has a condition that necessitates treatment with an opioid for longer than 7 days. Additionally, a non-opioid alternative was not appropriate or inadequate to manage patient???s pain. ??? Diagnosis related to controlled substance prescribing: cancer associated pain ??? [place] PROCEDURES RN Review: We have reviewed the patient's record in the [place] prescription monitoring program May 14, 2021. ??? Opioid Toxicity Review: We have reviewed the risks of opioid therapy and completed an assessmentof toxicities. ??? Opioid Aberrant Use Concerns: None ??? Recommended Opioid Regimen as of May 14, 2021.: Hydromorphone 2-4 mg tablets BID prn (usingonly once per day most days) ??? Urine drug screen not obtained today. Opioid Risk Score: Last Opioid Risk Tool charting Office Visit from 05/14/2021 in Department of Palliative Care in [place], [place] ORT Total Score (max 26) 0 ??? Constipation: Continue to monitor bowels while on opioids; currently controlled with dietary measures with opioid weaning. Advance Care Planning: Documented surrogate decision maker? [...] months, clinic visit Total time spent was 42 minutes Aura Zheng D.O. documented in this encounter Plan of Treatment Upcoming Encounters Date Type Specialty Care Team Description 06/22/2022 Lab [facility] RN, C.N.P., M.S. [address] [place] [phone] (Mj godoy) 06/22/20[facility] [address] [place] [phone] (Mj godoy) 06/29/2022 [facility] [address] [place] [phone] (Mj godoy) 06/29/2022 [facility] [address] [place] [phone] (Mj godoy) Scheduled Orders Name Type Priority Associated Diagnoses Order S chedule Perform central line Procedures Routine Malignant Neoplasm O f Expected: 05/31/2021 maintenance: Flush Pancreas (HCC) (Approx imate), port(s) Expires: 2023 Scheduled Referrals Name Type Priority Associated Order Schedule Diagnoses Palliative Care Outpatient Referral Routine Expec sally: office visit 08/13/2021 (clinic) (Approximate), Expires: 05/14/2024 documented as of this encounter Visit Diagnoses Diagnosis Malignant Neoplasm Of Pancreas (HCC) - P rimary Pain Cancer Associated Pain Back Constipation Malnutrition Severe Protein-Calorie (HCC ) Anxiety Generalized Disorder Palliative Care documented in this encounter Care Teams Pan Shaker Relationship Specialty Start Date End Date Elsewhere, Pcp PCP - General Family Medicine 08/12/20 documented as of this encounter
--- OUTSIDE RECORDS SUMMARY | 2022-06-18 16:10 | XMS_ITS | Encounter Summary ---
:1965 Author Organization [facility] Address [address] [place] [address] Care Team Providers Name Role Phone Elsewhere, Pcp Primary Care Provider Unavailable Reason for Visit Reason Comments Med Refill Encounter Details Date Type Department Care Team Description 08/04/2021 Refill Department of Palliative Care Terri Wood APRN, Med Refill in [facility] C.N.P., D.N.P. [address] [facility] [address] [place] [address] [place] [address] [phone] (Wo rk) Social History Tobacco Use Types [...] er 01/15/2021 How often do you attend baptism or anabaptism services? 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 [address] [place] [phone] (Mj rk) 06/22/2022 Infusion Oncology Maria Del Rosario Gomez APRN, C.N .P., M.S. [address] [place] [phone] (Mj rk) 06/29/2022 Lab Laboratory Medicine Maria Del Rosario Gomez AP RN, C.N.P., M.S. [address] [place] [phone] (Mj godoy) 06/29/2022 Infusion Oncology Maria Del Rosario Gomez APRN, C.N .P., M.S. 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
--- OUTSIDE RECORDS SUMMARY | 2022-06-18 16:10 | XMS_ITS | Encounter Summary ---
:1965 Author Organization [facility] Address [address] [place] [address] Care Team Providers Name Role Phone Elsewhere, Pcp Primary Care Provider Unavailable Reason for Visit Reason Comments Med Refill Encounter Details Date Type Department Care Team Description 06/22/2021 Refill Department of Palliative Care nikita, Aura Jackson D.O. Med Refill in [facility] [address] [facility] [address] [place] [address] [place] [address] [phone] Social History Tobacco Use Types Packs/Day Years [...] How often do you attend muslim or mormonism services? 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 Last strength/amount/date filled: Hydromorphone 4 mg #90 filled 05/13/21 [place] MEDIA CONSULTANT OUTSIDE SALES reviewed Prescription/amount provided today: Hydromorphone 4 mg, #90 Prescription will be e-Prescribed to the following pharmacy: [facility] Last appointment was in person office visit on 05/14/21 Last in-office visit if different than above: N/A Next palliative appointment is in person office visit on 08/12/21 Prescription was authorized by Ingrid Obregon CNP documented in this encounter Plan of Treatment Upcoming Encounters Date Type Specialty Care Team Description 06/22/2022 Lab Laboratory Medicine Maria Del Rosario Gomez AP RN, C.N.P., M.S. [address] [place] [phone] (Mj godoy) 06/22/2022 Infusion Oncology Maria Del Rosario Gomez APRN, C.N .P., M.S. [address] [place] [phone] (Mj godoy) 06/29/2022 Lab Laboratory Medicine Maria Del Rosario Gomez AP RN, C.N.P., M.S. [address] [place] [phone] (Mj godoy) 06/29/2022 Infusion Oncology Maria Del Rosario Gomez APRN, C.N .P., M.S. [address] [place] [phone] (Mj godoy) documented as of this encounter Visit Diagnoses Not on filedocumented in this encounter Care Teams Copper Tapper Relationship Specialty Start Date End Date Elsewhere, Pcp PCP - General Family Medicine 08/12/20 documented as of this encounter
--- OUTSIDE RECORDS SUMMARY | 2022-06-18 16:10 | XMS_ITS | Encounter Summary ---
:1965 Author Organization [facility] Address [address] [place] [address] Care Team Providers Name Role Phone Elsewhere, Pcp Primary Care Provider Unavailable Reason for Visit Reason Comments Medication Question Encounter Details Date Type Department Care Team Description 04/29/2021 Clinical Communication Department of Aura Zheng Me dication Question [facility] [place] [address] [place], [place] [address] [place] [phone] [place], [place] [phone] (Work) [phone] Social History Tobacco Use Types Packs/Day Years [...] er 01/15/2021 How often do you attend religion or restorationist services? 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 [address] [place] [phone] (Wo rk) 06/22/2022 Infusion Oncology Maria Del Rosario Gomez APRN, C.N .P., M.S. [address] [place] [phone] (Wo rk) 06/29/2022 Lab Laboratory Medicine Maria Del Rosario Gomez AP RN, C.N.P., M.S. [address] [place] [phone] (Wo rk) 06/29/2022 Infusion Oncology Maria Del Rosario Gomez APRN, C.N .P., M.S. [address] [place] [phone] (Wo rk) documented as of this encounter Visit Diagnoses Not on filedocumented in this encounter Additional Health Concerns Infection Onset Date Last Indicated Resolved Time COVID19 Pending 04/29/2021 04/29/2021 04/30/2021 1:48 AM CDT documented as of this encounter Care Teams Medical Case 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
--- OUTSIDE RECORDS SUMMARY | 2022-06-18 16:11 | XMS_ITS | Encounter Summary ---
:1965 Author Organization [facility] Address [address] [place] [address] Care Team Providers Name Role Phone Elsewhere, Pcp Primary Care Provider Unavailable Encounter Details Date Type Department Care Team Description 03/30/2021 Clinical Communication Department of Aura Zheng Palliative Care in .[place], [place] [address] [facility] [address] [place] [phone] Social History Tobacco Use Types Packs/Day Years [...] er 01/15/2021 How often do you attend islam or sabianist services? 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 - 04/05/2021 3:26 PM CDT SUBJECTIVE CHIEF COMPLAINT / REASON FOR CALL Return phone call to Briana, assurance services manager health care PLAN The following information was provided: Discussed Mr. Campbell with Briana, his local assurance services manager health care who is wondering about getting a scooter for patient through hospice care. Patient's medical records indicate he is still pursuing cancer-directed treatment so he would not be a hospice candidate. Briana will continue to give patient resources on how to go about getting a scooter through his medical insurance so he can be more independent. Information/Education: patient/caller able to teach back The following references were used: previous plan of care date: 03/12 oncology note and 03/29 palliative note. documented in this encounter Plan of Treatment Upcoming Encounters Date Type Specialty Care Team Description 06/22/2022 Lab Laboratory Medicine Maria Del Rosario Gomez AP RN, C.N.P., M.S. [address] [place] [phone] (Mj godoy) 06/22/2022 Infusion Oncology Maria Del Rosario Gomez APRN, C.N .P., M.S. [address] [place] [phone] (Mj godoy) 06/29/2022 Lab Laboratory Medicine Maria Del Rosario Gomez AP RN, C.N.P., M.S. [address] [place] [phone] (Mj gdooy) 06/29/2022 Infusion Oncology Maria Del Rosario Gomez APRN, C.N .P., M.S. [address] [place] [phone] (Mj godoy) documented as of this encounter Visit Diagnoses Not on filedocumented in this encounter Care Teams Director Fundraising Relationship Specialty Start Date End Date Elsewhere, Pcp PCP - General Family Medicine 08/12/20 documented as of this encounter
--- OUTSIDE RECORDS SUMMARY | 2022-06-18 16:11 | XMS_ITS | Encounter Summary ---
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 [address] [place] [address] [phone] (Wo rk) 06/22/2022 Infusion Oncology Maria Del Rosario Gomez APRN, C.N .P., M.S. [address] [place] [address] [phone] (Wo rk) 06/29/2022 Lab Laboratory Medicine Maria Del Rosario Gomez AP RN, C.N.P., M.S. [address] [place] [address] [phone] (Wo rk) 06/29/2022 Infusion Oncology Maria Del Rosario Gomez APRN, C.N .P., M.S. [address] [place] [phone] (Wo rk) documented as of this encounter Procedures Procedure Name Priority Date/Time Associated Comments Diagnosis CBC WITH DIFFERENTIAL, Routine 03/12/2021 1:52 PM Malignant Ne oplasm Results for this B CDT Of Pancreas (HCC) procedure are in the results section. GLUCOSE, FASTING, S/P Routine 03/12/2021 1:52 PM Malignant Siva plasm Results for this CDT Of Pancreas (HCC) procedure are in the results section. COMPREHENSIVE Routine 03/12/2021 1:52 PM Malignant Neoplasm Re sults for this METABOLIC PANEL, S/P CDT Of Pancreas (HCC) pr ocedure are in the results section. documented in this encounter Results Glucose, Fasting (03/12/2021 1:52 PM CDT) P athologist Signature Glucose, P 100 70 - 100 03/12/2021 DTL mg/dL 3:18 PM CDT Specimen Anatomical Collection Method Collection Time Receive d Time (Source) Location / / Volume Laterality Blood (Blood, 03/12/2021 1:52 PM 03/12/20 2:34 Venous) CDT PM CDT Deborah Valera LAB BLOOD NON ADD-ON Performing Organization Address City/State/ZIP Code Phon e Number [facility] - 200 [place], [place] [address] [facility] [place] [address] [facility] 200 [facility] (ABNORMAL) Comprehensive Metabolic Panel (03/12/2021 1:52 PM CDT) Analysis Performed At Patho logist Time Signature Potassium, S 3.7 3.6 - 5.2 03/12/2021 DTL mmol/L 3:22 PM CDT Sodium, S 138 135 - 145 03/12/2021 DTL mmol/L 3:22 PM CDT Chloride, S 103 98 - 107 03/12/2021 DTL mmol/L 3:22 PM CDT Bicarbonate, S 28 22 - 29 03/12/2021 DTL mmol/L 3:22 PM CDT Anion Gap 7 7 - 15 03/12/2021 DTL 3:22 PM CDT BUN (Blood Urea 11 8 - 24 03/12/2021 DTL Nitrogen), S mg/dL 3:22 PM CDT Creatinine 0.70 (L) 0.74 - 03/12/2021 DTL 1.35 mg/dL 3:22 PM CDT eGFR-Non >90 >=60 03/12/2021 DTL Black/ mL/min/BSA 3:22 PM CDT Lebanese Comment: ----ADDITIONAL INFORMATION---- Estimated GFR calculated using the 2009 CKD_EPI creatinine equation. eGFR-Black/ >90 >=60 mL/min/BSA 2020 3:22 PM CDT DTL Comment: ----ADDITIONAL INFORMATION---- Estimated GFR calculated using the 2009 CKD_EPI creatinine equation. Calcium, Total, S 8.8 8.6 - 10.0 mg/dL 03/12/2021 3:22 PM CDT DTL Glucose, S CANCELED mg/dL 03/12/2021 2:35 PM CDT DTL Comment: Test not performed. See Fasting Glucose result. Result canceled by the ancillary. Protein, Total, S 6.6 6.3 - 7.9 g/dL 03/12/2021 3:22 P M CDT DTL Albumin, S 3.7 3.5 - 5.0 g/dL 03/12/2021 3:22 PM CDT D TL Aspartate Aminotransferase 24 8 - 48 U/L 03/12/2021 3 :22 PM CDT DTL (AST), S Alkaline Phosphatase, S 282 (H) 40 - 129 U/L 03/12/2021 3: 22 PM CDT DTL Alanine Aminotransferase (ALT), 89 (H) 7 - 55 U/L 021 3:22 PM CDT DTL S Bilirubin, Total, S 0.2 <=1.2 mg/dL 03/12/2021 3:22 PM CDT DTL Specimen Anatomical Collection Method Collection Time Receive d Time (Source) Location / / Volume Laterality Blood (Blood, 03/12/2021 1:52 PM 03/12/20 21 2:35 Venous) CDT PM CDT Deborah VillaBRiazS. LAB BLOOD ADD-ON Performing Organization Address City/State/ZIP Code Phon e Number [facility] - [address] [place] [address] [facility] [place] [address] [facility] 200 [facility] (ABNORMAL) CBC with Differential, Blood (03/12/2021 1:52 PM CDT) [facility] Method Time Signature Hemoglobin 11.2 (L) 13.2 - 03/12/2021 DTL 16.6 g/dL 2:39 PM CDT Hematocrit 35.9 (L) 38.3 - 03/12/2021 DTL 48.6 % 2:39 PM CDT Erythrocytes 4.13 (L) 4.35 - 03/12/2021 DTL 5.65 2:39 PM CDT x10(12)/L MCV 86.9 78.2 - 03/12/2021 DTL 97.9 fL 2:39 PM CDT RBC Distrib Width 19.3 (H) 11.8 - 03/12/2021 DTL 14.5 % 2:39 PM CDT Platelet Count 244 135 - 317 03/12/2021 DTL x10(9)/L 2:39 PM CDT Leukocytes 6.0 3.4 - 9.6 03/12/2021 DTL x10(9)/L 2:39 PM CDT Neutrophils 4.43 1.56 - 03/12/2021 DTL 6.45 2:39 PM CDT x10(9)/L Lymphocytes 0.37 (L) 0.95 - 03/12/2021 DTL 3.07 2:39 PM CDT x10(9)/L Monocytes 0.94 (H) 0.26 - 03/12/2021 DTL 0.81 2:39 PM CDT x10(9)/L Eosinophils 0.24 0.03 - 03/12/2021 DTL 0.48 2:39 PM CDT x10(9)/L Basophils 0.03 0.01 - 03/12/2021 DTL 0.08 2:39 PM CDT x10(9)/L Specimen Anatomical Collection Method Collection Time Receive d Time (Source) Location / / Volume Laterality Blood (Blood, 03/12/2021 1:52 PM 03/12/20 21 2:24 Venous) CDT PM CDT Deborah Valera LAB BLOOD ADD-ON Performing Organization Address City/State/ZIP Code Phon e Number [facility] - [address] [place], [place] [address] [facility] [place] [address] [facility] 200 [facility] documented in this encounter Visit Diagnoses Diagnosis Malignant Neoplasm Of Pancreas (HCC) - P rimary Bacteremia documented in this encounter Administered Medications Inactive Administered Medications - up to 3 most recent administrations Medication Order MAR Action Action Date Dose Rate Site heparin flush 500 Units Given 03/12/2021 1:55 PM CDT 500 Units 500 Units, intra-catheter, As needed, line care, Starting on Mon03/12/21 at 1344, When no infusion to maintain patency: For IVAD accessed, not in use, and/or prior to hospital discharge, flush every 7 days after 0.9% preservative-free NaCL flush. For IVAD NOT accessed or used, flush every 4 weeks after 0.9% preservative-free NaCL flush. sodium chloride 0.9 % injection 10 mL Given 03/12/2021 1:54 PM CDT 10 mL 10 mL, intra-catheter, As needed, line care, Starting on Mon03/12/21 at 1344, When IVAD Accessed and in Use: Flush prior to and following infusion, between multiple consecutive infusions, and prior to blood sampling. sodium chloride 0.9 % injection 20 mL Given 03/12/2021 1:54 PM CDT 20 mL 20 mL, intra-catheter, As needed, line care, Starting on Mon03/12/21 at 1344, When IVAD Accessed and in Use: Flush post blood transfusion or post blood sampling. documented in this encounter Care Teams Die Cutter Relationship Specialty Start Date End Date Elsewhere, Pcp PCP - General Family Medicine 08/12/20 documented as of this encounter
--- OUTSIDE RECORDS SUMMARY | 2022-06-18 16:11 | XMS_ITS | Encounter Summary ---
:1965 Author Organization [facility] Address [address] [place] [address] Care Team Providers Name Role Phone Elsewhere, Pcp Primary Care Provider Unavailable Encounter Details Date Type Department Care Team Description 04/27/2021 Lab Department of Infusion Vladislav Zarco Malignant Neoplasm Of Therapy in Randall Perdomo M.D. Pancreas (HCC) [address] [place] [phone] (Wo rk) Social History Tobacco Use Types [...] er 01/15/2021 How often do you attend adventist or buddhism services? 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 [address] [place] [phone] (Wo rk) 06/22/2022 Infusion Oncology Maria Del Rosario Gomez APRN, C.N .P., M.S. [address] [place] [phone] (Wo rk) 06/29/2022 Lab Laboratory Medicine Maria Del Rosario Gomez AP RN, C.N.P., M.S. [address] [place] [phone] (Wo rk) 06/29/2022 Infusion Oncology Maria Del Rosario Gomez APRN, C.N .P., M.S. [address] [place] [phone] (Wo rk) documented as of this encounter Procedures Procedure Name Priority Date/Time Associated Comments Diagnosis [facility] [employer] Routine 04/27/2021 5:00 PM Results for this [place] CDT procedure are i n the results section. documented in this encounter Results [facility]. [employer] (04/27/2021 5:00 PM CDT) [facility] gist Method Time Signature Test Name Scyron 04/28/2021 [facility] pancreatic 8:43 AM CDT cancer panel Result SEE COMMENT 05/07/2021 [facility] 2:05 PM CDT Comment: For final report, select Lab-Send Out L ab Results hyperlink below. Specimen Anatomical Collection Method Collection Time Receive d Time (Source) Location / / Volume Laterality Varies 04/27/2021 5:00 PM 8:43 CDT AM CDT Narrative This result has an attachment that is no t available. Vladislav Zarco M.D. LAB MIS ORDERABLES Performing Organization Address City/State/ZIP Code Phon e Number [facility] [address] [place] [address] [place] [facility] [address] [phone] documented in this encounter Visit Diagnoses Diagnosis Malignant Neoplasm Of Pancreas (HCC) documented in this encounter Care Teams Server Manager Relationship Specialty Start Date End Date Elsewhere, Pcp PCP - General Family Medicine 08/12/20 documented as of this encounter
--- OUTSIDE RECORDS SUMMARY | 2022-06-18 16:11 | XMS_ITS | Encounter Summary ---
:1965 Author Organization [facility] Address [address] [place] [address] Care Team Providers Name Role Phone Elsewhere, Pcp Primary Care Provider Unavailable Reason for Visit Reason Comments Abdominal Pain Encounter Details Date Type Department Care Team Description 03/18/2021 Nurse Triage Department of Family More Rogers R.N . Abdominal Pain Medicine, [place], [place] [address] [place] [address] Social History Tobacco Use Types Packs/Day Years [...] How often do you attend holiness or jehovah's witness services? 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 - 03/18/2021 5:21 PM CDT Chief Complaint / Reason for Call Patient is a 55 y.o. male calling regarding abdominal pain. He wants to be connected with oncology or palliative care provider technologies division chair. Patient Warm assisted to the [employer] Integrated Circuits Inspector who plans to page the provider service. documented in this encounter Plan of Treatment Upcoming Encounters Date Type Specialty Care Team Description 06/22/2022 Lab Laboratory Medicine Maria Del Rosario Gomez AP RN, C.N.P., M.S. [address] [place] [phone] (Mj godoy) 06/22/2022 Infusion Oncology Maria Del Rosario Gomez APRN, C.N .P., M.S. [address] [place] [phone] (Mj godoy) 06/29/2022 Lab Laboratory Medicine Maria Del Rosario Gomez AP RN, C.N.P., M.S. [address] [place] [phone] (Mj godoy) 06/29/2022 Infusion Oncology Maria Del Rosario Gomez APRN C.N .P., M.S. [address] [place] [phone] (Mj godoy) documented as of this encounter Visit Diagnoses Not on filedocumented in this encounter Care Teams Microsoft Access Developer Relationship Specialty Start Date End Date Elsewhere, Pcp PCP - General Family Medicine 08/12/20 documented as of this encounter
--- OUTSIDE RECORDS SUMMARY | 2022-06-18 16:11 | XMS_ITS | Encounter Summary ---
:1965 Author Organization [facility] Address [address] [place] [address] Care Team Providers Name Role Phone Elsewhere, Pcp Primary Care Provider Unavailable Encounter Details Date Type Department Care Team Description 03/19/2021 Ancillary Procedure Department of Radiology Sandra Leyva in [facility] elke Roca [address] [facility] [address] [place] [phone] (Wo rk) Social History Tobacco Use Types [...] How often do you attend faith or mandaeism services? 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 [address] [place] [phone] (Wo rk) 06/22/2022 Infusion Oncology [place] APRN, Remy.N .P., M.S. [address] [place] [address] [phone] (Wo rk) 06/29/2022 Lab Laboratory Medicine Maria Del Rosario Gomez AP RN, C.N.P., M.S. [address] [place] [address] [phone] (Wo rk) 06/29/2022 Infusion Oncology Maria Del Rosario Gomez APRN, Remy.N .P., M.S. [address] [place] [phone] (Wo rk) documented as of this encounter Procedures Procedure Name Priority Date/Time Associated Comments Diagnosis INTERPRETATION OF RAD - Routine 03/19/2021 5:54 Result s for OUTSIDE CT ABDOMEN (most inpatients AM CDT this procedure AND OR PELVIS and all are in the outpatients) results section. documented in this encounter Results Interpretation of Outside CT Abdomen and or Pelvis (03/19/2021 5:54 AM CDT) Anatomical Region Laterality Modality Abdomen, Pelvis, Abdominal RST LOS, Abdominal ARZ LOS, N/A Computed Tomography Abdominal FLA LOS, Other Specimen (Source) Anatomical Collection Method Collection Time Re ceived Time Location / / Volume Laterality 03/19/2021 7:29 AM CDT Impressions 03/19/2021 8:34 AM CDT 1. Interval dilation of the common bile duct, now measuring 2.3 cm. Interval placement of a biliary drain. The tip of one of the transgastric pigtail stents is now located in the distal aspect of t he metallic biliary stent. Metallic biliary stent is in stable position. 2. Developing necrosis of the pancreatic neck. 3. Interval resolution of the areas of w alled off peripancreatic necrosis. 4. Slight decrease in size in the pancre atic uncinate process mass. Narrative 03/19/2021 8:34 AM CDT EXAM: ??INTERPRETATION OF OUTSIDE CT ABDOMEN AND OR PELVIS COMPARISON: ??CT abdomen pelvis 12/12/19 21. FINDINGS: ??Interpretation of outside CT abdomen pelvis with IV contrast dated 03/18/2021. Interval placement of a biliary drain th rough the metallic biliary stent. The tip of one of the transgastric pigtail s tents is now located in the distal aspect of the metallic biliary stent (se alissa 4 image 34). The metallic biliary stent is in stable position. Continued i ncreased caliber of the common bile duct, now measuring up to 2.3 cm, previo usly 1.9 cm. Increased intrahepatic biliary ductal dilation. Small amount of pneumobilia. Slight increased distention of the gallbladder. A total of 6 transgastric pigtail stents are in place within the area of previously seen walled off necrosis in t he left hemiabdomen. No appreciable fluid about the stents. Interval decreas e in size of the left subdiaphragmatic collection with no appreciable fluid col lection remaining (series 2 image 26). Developing area of decreased parenchymal enhancement involving the neck of the pancreas seen on series 2, images 40-43 compatible with developing necrosis. Interval decrease in size and attenuatio n of the uncinate process mass, now measuring 1.3 x 2.3 cm, previously 2.1 x 2.4 cm (series 2 image 50). Interval decrease in size of the ill-def ined hypodensity in hepatic segment 5, now measuring 7 mm, previously 1 cm on 0 11/26/2020 (series 6 image 47). Normal appearance of the spleen, adrenal glands, and kidneys. Normal caliber small and large bowel. Stable mild soft tissue tethering of the descending colon at the splenic flexure to the previously seen areas of abnormal necrosis without obstruction. Scattered, mildly prominent peripancreatic lymph nodes. New trace amounts of free fluid in the low pelvis. No discrete fluid collection or free intra-abdominal air. Stable mild narrowi ng of the patent portal vein about the region of the pancreatic uncinate proces s mass. 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 Left gonadal vein embolization coils. Stable tiny subpleural nodules in the lung bases. No suspicious osseous lesion. Procedure Note John Delgado M.D. - 03/19/2021Format ting of this note might be different from the original. EXAM: INTERPRETATION OF OUTSIDE CT ABDOM EN AND OR PELVIS COMPARISON: CT abdomen pelvis 12/11/2020 . FINDINGS: Interpretation of outside CT a bdomen pelvis with IV contrast dated 03/18/2021. Interval placement of a biliary drain th rough the metallic biliary stent. The tip of one of the transgastric pigtail s tents is now located in the distal aspect of the metallic biliary stent (se alissa 4 image 34). The metallic biliary stent is in stable position. Continued i ncreased caliber of the common bile duct, now measuring up to 2.3 cm, previo usly 1.9 cm. Increased intrahepatic biliary ductal dilation. Small amount of pneumobilia. Slight increased distention of the gallbladder. A total of 6 transgastric pigtail stents are in place within the area of previously seen walled off necrosis in t he left hemiabdomen. No appreciable fluid about the stents. Interval decreas e in size of the left subdiaphragmatic collection with no appreciable fluid col lection remaining (series 2 image 26). Developing area of decreased parenchymal enhancement involving the neck of the pancreas seen on series 2, images 40-43 compatible with developing necrosis. Interval decrease in size and attenuatio n of the uncinate process mass, now measuring 1.3 x 2.3 cm, previously 2.1 x 2.4 cm (series 2 image 50). Interval decrease in size of the ill-def ined hypodensity in hepatic segment 5, now measuring 7 mm, previously 1 cm on 0 11/26/2020 (series 6 image 47). Normal appearance of the spleen, adrenal glands, and kidneys. Normal caliber small and large bowel. Stable mild soft tissue tethering of the descending colon at the splenic flexure to the previously seen areas of abnormal necrosis without obstruction. Scattered, mildly prominent peripancreatic lymph nodes. New trace amounts of free fluid in the low pelvis. No discrete fluid collection or free intra-abdominal air. Stable mild narrowi ng of the patent portal vein about the region of the pancreatic uncinate proces s mass. 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 Left gonadal vein embolization coils. Stable tiny subpleural nodules in the lung bases. No suspicious osseous lesion. IMPRESSION: 1. Interval dilation of the common bile duct, now measuring 2.3 cm. Interval placement of a biliary drain. The tip of one of the transgastric pigtail stents is now located in the distal aspect of t he metallic biliary stent. Metallic biliary stent is in stable position. 2. Developing necrosis of the pancreatic neck. 3. Interval resolution of the areas of w alled off peripancreatic necrosis. 4. Slight decrease in size in the pancre atic uncinate process mass. Savnanah Leyva M.D. IMG CT PROCEDURES documented in this encounter Visit Diagnoses Not on filedocumented in this encounter Care Teams Trade Marker Relationship Specialty Start Date End Date Elsewhere, Pcp PCP - General Family Medicine 08/12/20 documented as of this encounter
--- OUTSIDE RECORDS SUMMARY | 2022-06-18 16:11 | XMS_ITS | Encounter Summary ---
:1965 Author Organization [facility] Address [address] [place] [address] Care Team Providers Name Role Phone Elsewhere, Pcp Primary Care Provider Unavailable Reason for Visit Reason Comments Intake Assessment Encounter Details Date Type Department Care Team Description 04/23/2021 Clinical Communication Department of Baldemar Zarco [facility] Oncology in Vladislav Pereira M.D. [place], [facility] [address] [place], [place] [address] [place] [phone] [place], [place] [phone] (Work) [phone] Social History Tobacco Use Types Packs/Day Years [...] How often do you attend holiness or yazdanism services? 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 documented in this encounter Plan of Treatment Upcoming Encounters Date Type Specialty Care Team Description 06/22/2022 Lab Laboratory Medicine Maria Del Rosario Gomez AP RN, C.N.P., M.S. [address] [place] [phone] (Mj godoy) 06/22/2022 Infusion Oncology Maria Del Rosario Gomez APRN, C.N .P., M.S. [address] [place] [phone] (Mj rk) 06/29/2022 Lab Laboratory Medicine Maria Del Rosario Gomez AP RN, C.N.P., M.S. [address] [place] [phone] (Mj rk) 06/29/2022 Infusion Oncology Maria Del Rosario Gomez APRN, C.N .P., M.S. [address] [place] [address] [phone] (Mj godoy) documented as of this encounter Visit Diagnoses Not on filedocumented in this encounter Care Teams Candy Supervisor Relationship Specialty Start Date End Date Elsewhere, Pcp PCP - General Family Medicine 08/12/20 documented as of this encounter
--- OUTSIDE RECORDS SUMMARY | 2022-06-18 16:11 | XMS_ITS | Encounter Summary ---
:1965 Author Organization [facility] Address [address] [place] [address] Care Team Providers Name Role Phone Elsewhere, Pcp Primary Care Provider Unavailable Reason for Visit Auth/Cert Specialty Diagnoses / Procedures Referred By Contact Refer red To Contact Diagnoses Abdominal Pain Procedures DIR Referral ID Status Reason Start Date Expiration Date Visits Requ ested Visits Authorized [id number] 1 1 Encounter Details Date Type Department Care Team Description 03/19/2021 Hospital Encounter Department of Savannah Leyva, [facility] [place], [address] [place] [address] [place] [id number] [place], [place] [phone] (Wo rk) [id number] [phone] Social History Tobacco Use Types Packs/Day Years [...] How often do you attend shinto or bahai services? Never 01/15/2021 Do you [...] at Date Recorded Male 08/18/2021 2:55 PM [employer] documented as of this encounter Medications [...] the counter lidocaine cream for back pain traZODone (DESYREL) 50 Take 1-2 tablets 30 tablet 0 021 01/06/2022 mg tablet (50-100 mg total) by mouth at bedtime. Take 50 mg daily at bedtime for at least 7 days. If ineffective, may trial increase to 100 mg daily at bedtime. levoFLOXacin (LEVAQUIN) Take 1 tablet (750 5 tablet 0 03/1103/25/2021 750 mg mg total) by mouth tabletIndications: every morning before Intra-abdominal breakfast for 5 infection, community doses Indications: acquired Intra-abdominal infection, community acquired. metroNIDAZOLE (FLAGYL) Take 1 tablet (500 14 tablet 0 03/2003/26/2021 500 mg mg total) by mouth 3 tabletIndications: (three) times a day Intra-abdominal for 14 doses infection, community Indications: acquired Intra-abdominal infection, community acquired. pantoprazole (PROTONIX) Take 1 tablet (40 mg 90 tablet 3 10/02/2021 40 mg EC tablet total) by mouth every morning before breakfast. Creon 24,000-76,000 TAKE 2 CAPSULES WITH 120 capsule 2 03/0305/19/2021 -120,000 unit capsule MEALS AND 1 CAPSULE WITH SNACKS- MAY TAKE 1-2 CAPSULES WITH SNACKS IF NEEDED HYDROmorphone Take 1-1.5 tablets 135 tablet 0 03/01/2021 (DILAUDID) 4 mg (4-6 mg total) by tabletIndications: mouth every 3 Chronic Pain/Nonacute (three) hours as Pain needed for pain Indication: Chronic Pain/Nonacute Pain. ketorolac (TORADOL) 10 Take 1 tablet (10 mg 28 tablet 0 04/01/2021 mg tablet total) by mouth 2 (two) times a day as needed for pain. LORazepam (Ativan) 0.5 Take 1 tablet (0.5 60 tablet 0 03/0103/29/2021 mg tablet mg total) by mouth 2 (two) times a day as needed for anxiety. 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 documented as of this encounter Plan of Treatment Upcoming Encounters Date Type Specialty Care Team Description 06/22/2022 Lab Laboratory Medicine Maria Del Rosario Gomez AP RN, C.N.P., M.S. [address] [place] [address] [phone] ([place] godoy) 06/22/2022 Infusion Oncology Maria Del Rosario Gomez APRN, C.N .P., M.S. [address] [place] [address] [phone] (Mj godoy) 06/29/2022 Lab Laboratory Medicine Maria Del Rosario Gomez AP RN, C.N.P., M.S. [address] [place] [address] [phone] ([place]j godoy) 06/29/2022 Infusion Oncology Maria Del Rosario Gomez APRN C.N .P., M.S. [address] [place], [place] [phone] (Wo rk) documented as of this encounter Procedures Procedure Name Priority Date/Time Associated Diagnosis Comme nts FL FLUORO LESS THAN Routine 03/19/2021 5:32 PM Re sults for this 1 HOUR CDT procedure are i n the results section. documented in this encounter Results FL Fluoro Less Than 1 Hour (03/19/2021 5:32 PM CDT) Specimen (Source) Anatomical Location Collection Method / Collectio n Time Received Time / Laterality Volume Narrative ERCP LOS RST - 03/19/2021 5:32 PM CDT This exam does not require a radiologist review or interpretation. Please refer to the patient's medical record on this date for clinical details. Savannah WONG FLUOROSCOPY PROCEDURES Performing Organization Address City/State/ZIP Code Phon e Number ERCP LOS RST documented in this encounter Visit Diagnoses Not on filedocumented in this encounter Care Teams Delivery Recruiter Relationship Specialty Start Date End Date Elsewhere, Pcp PCP - General Family Medicine 08/12/20 documented as of this encounter
--- OUTSIDE RECORDS SUMMARY | 2022-06-18 16:11 | XMS_ITS | Encounter Summary ---
:[address] [facility] Address [address] [place] [address] Care Team Providers Name Role Phone Elsewhere, Pcp Primary Care Provider Unavailable Reason for Visit Auth/Cert Specialty Diagnoses / Procedures Referred By Contact Refer red To Contact Diagnoses Abdominal Pain Procedures DIR Referral ID Status Reason Start Date Expiration Date Visits Requ ested Visits Authorized [id number] 1 1 Encounter Details Date Type Department Care Team Description 03/19/2021 - Hospital Encounter [facility] John Farley, Abdomina l Pain (Primary Dx); [facility] Of Pancreas (HCC); [facility], [address] [facility] Obstruction Common Bile Duct; [facility] Sixth Floor [id number] [place] [address] [place], [place] (Work) [phone] Social History Tobacco Use [...] How often do you attend pentecostal or anabaptist services? 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 - 03/20/2021 10:39 AM CDT DISCHARGE SUMMARY BRIEF OVERVIEW Hospital: [facility] Discharge Provider: John Farley M.B. Primary Team: 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 OUTPATIENT FOLLOW UP Scheduled Appointments 03/22/2021 10:00 AM Angelia Hwang M.S., RDN, LD Nutrition 03/29/2021 9:30 AM PAL PROVIDER 01 VAIBHAV Palliative Medicine 04/27/2021 11:[address] LUPILLO PILLAI [facility] 814 Radiology 04/27/2021 12:00 PM ERASTO OCHOA RN PORT DRAW ROEI Infusion Therapy 04/27/2021 3:30 PM Vladislav Zarco M.D. Oncology For appointment details refer to your Patient Appointment Guide. TEST RESULTS PENDING AT DISCHARGE Pending Labs Order Current Status Bacteria / Brigid Culture, Blood #1 Preliminary result Bacteria / Brigid Culture, Blood #2 Preliminary result DETAILS OF HOSPITAL STAY REASON FOR ADMISSION Abdominal Pain HOSPITAL COURSE Mr. Adam Campbell is a 55 y.o. male with medical comorbidities of pancreatic adenocarcinoma complicated by malignant biliary stenosis requiring stents, ERCP pancreatitis, and infected nonocclusive portal vein thrombosis who was admitted 03/19/21 as a transfer from [facility] with abdominal pain, nausea and vomiting with elevated LFT's and CT A/P revealing a distended gallbladder and common bile duct dilatation - found to have ascending cholangitis secondary to malignant biliary stenosiswith occluded biliary stents. His oncologic history per chart review, patient was diagnosed in 07/2020 with pancreatic cancer. After ERCP stent placement, he experienced post-ERCP pancreatitis, peripancreatic abscess and bacteremiathat was treated with IV antibiotics. In 09/2020, patient had cholangitis; his stent was noted to be p atent but he had a common bile duct stricture that caused hyperbilirubinemia. He began chemotherapy that was on hold after one cycle due to infection/pancreatitis. In 12/2020, patient was deemed not a surgical candidate for his pancreatic cancer, and he was started on curative radiation and chemotherapy with gemcitabine on 01/2021. On admission, Mr. Campbell was started on IV zosyn and blood cultures were drawn prior to initiating him on zosyn (in process as of 03/20/21). On admission to [facility] his total bilirubin was elevated to 3.4, direct bilirubin 2.9, ALT 159, AST 61, alkaline phosphatase 556. Lipase was 5. Our radiologists read of the outside CT A/P from 03/19/21 revealed the followin. Interval dilation of the common bile duct, now measuring 2.3 cm. Interval placement of a biliary drain. The tip of one of the transgastric pigtail stents is now located in the distal aspect of the metallic biliary stent. Metallic biliary stent is in stable position. 2. Developing necrosis of the pancreatic neck. 3. Interval resolution of the areas of walled off peripancreatic necrosis. 4. Slight decrease in size in the pancreatic uncinate process mass. Mr. Campbell underwent ERCP on 03/19/21 which was notable for: - Ascending cholangitis due to occluded biliary stents. The plastic biliary stent was exchanged for a fully covered metal biliary stent (10 mm x 4 cm Wallflex) nested within the uncovered metal biliarystent. - A single localized moderate biliary stricture was found in the common bile duct due to tissue (presumably tumor) ingrowth within the uncovered metal stent. - Five stents were removed from the WON through the cystotomy around the region of the pancreatic tail. Mr. Campbell did very well post-ERCP with no complications. He remained afebrile and stable overnight. His LFTs improved from admission and on 03/20/21 his total bilirubin was 1.5, direct 1.2, ALT 106, AST35, alkaline phosphatase 467. Lipase 26. He did not have any clinical signs or symptoms concerning for post-ERCP pancreatitis and his lipase is within normal limits at discharge. Mr. Campbell was transitioned from IV zosyn to PO antibiotics. He was started on 03/20/21 PO levaquin 750mg once daily and PO flagyl 500mg BID. He will continue the levaquin and flagyl for 5 days until 03/25/21 We discussed that he will need repeat LFTs and a follow up appointment with his PCP in one week. New medications at discharge: Levofloxacin (levaquin) tablet 750mg once daily, for 5 days until 03/25/21 Metronidazole (flagyl) tablet 500mg 3 times daily, for 5 days until 03/25/21 Physical Exam on day of discharge: General: Alert, interactive, not acutely ill. Eyes: Pupils equal, round and reactive to light. Sclera anicteric. Lungs: Clear to auscultation. No wheezes or crackles. Heart: Regular rate and rhythm. No murmurs appreciated. No lower extremity edema. Abdomen: Soft, flat, bowel sounds normoactive, mild tenderness to palpation of the LLQ, no rebound or guarding, nondistended, no palpable masses or organomegaly. Mental: Mood and affect congruent. Alert and oriented. Attention intact. No evidence of disorganizedthinking. 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 CONSULTS ORDERED DURING THIS ADMISSION IP CONSULT TO DIETITIAN IP CONSULT TO DIETITIAN CONDITION AT DISCHARGE stable Discharge instructions were provided to the patient and caregiver(s). Associated attestation - John Farley M.B., Kimberly. - 03/20/2021 6:10 PM CDT I saw the patient on the day of discharge and agree with the discharge plans and disposition. documented in this encounter Discharge Instructions Discharge InstructionsBeulah White - 03/19/2021 7:04 AM CDT You were discharged from the [place] [address] ([facility]) Service. Please identify this service name if you call with questions after hospitalization. [facility] experts agree: You should get a COVID-19 vaccine as soon as it's available to you. ??? The vaccines that we???re recommending have been approved for safe use. ??? [facility] will continue to coordinate with state and local governments on future vaccine distribution phases. o If your primary care provider is at [facility] and you plan to receive your vaccination at [facility], please ensure that you have activated your Patient Portal at [email or web address] to allow [facility] to communicate to you about the scheduling process. ??? Practice social distancing, wear a mask properly outside your home, wash your hands frequently, and follow your state and local recommendations until the spread has stopped. ??? The vaccine may not be recommended to those with certain health conditions. Talk to your health care provider if you have questions about receiving the vaccine. Discharge Instr - Efren Saenz - 03/19/2021 11:08 AM CDT Nutrition dismissal summary completed by: Roderick Shaw Date Completed: 03/19/2021 Phone contact: Height: 173 cm Weight: 65.3 kg Admission Weight: 65.3 kg Diet Order: General ESTIMATED NEEDS: Total Calorie Needs: 8599-6105 calories/day Method to Estimate Energy Needs: [place] (Basal to Basal + 20%) Weight Used for Equation Calculations: 65.3 kg Total Protein Needs: 65 - 78 grams/day Method to Estimate Protein Needs (g/kg): 1 - 1.2 gm/kg Weight Used to Calculate Protein Needs (Kg): 65.3 kg Increase nutrition intake with small, frequent meals Medical food supplement(s) of choice Vitamin-mineral supplementation, Nutrition Discharge Plan: Patient was assessed as severely malnourished during this hospitalization based upon the ASPEN criteria. ??? Outpatient follow-up with Dietitian re: malnutrition AttachmentsThe following attachments cannot be sent through Care Everywhere. Levofloxacin (By mouth) (Colombian)Metronidazole (By mouth) (Colombian)documented in this encounter Medications at Time of [...] % Apply 1 application 30 g 0 10/25/2021 cream topically 3 (three) times a [...] or vomiting. documented as of this encounter Progress Notes Bryan Riddle M.D. - 03/20/2021 10:09 AM CDT T Medicine 4 ([facility]) PROGRESS NOTE SUBJECTIVE Mr. Campbell is stable and had no acute events overnight. This morning, he reports feeling very good since he had his ERCP yesterday. He has very minimal abdominal pain and has not had nausea or vomiting. He denies any epigastric pain and has no pain radiating to his back that would be concerning for pancreatitis post ERCP. I have reviewed the current medication list. OBJECTIVE VITAL SIGNS Temperature: [36.2 ??C-36.7 ??C] 36.7 ??C Heart Rate: [59-129] 63 Resp Rate: [10-23] 18 Blood Pressure: (85-139)/(48-85) 116/75 SpO2: [93 %-100 %] 99 % Pulse Rate: [59-117] 63 PHYSICAL EXAM General: Alert, interactive, not acutely ill. Eyes: Pupils equal, round and reactive to light. Sclera anicteric. Lungs: Clear to auscultation. No wheezes or crackles. Heart: Regular rate and rhythm. No murmurs appreciated. No lower extremity edema. Abdomen: Soft, flat, bowel sounds normoactive, mild tenderness to palpation of the LLQ, no rebound or guarding, nondistended, no palpable masses or organomegaly. Mental: Mood and affect congruent. Alert and oriented. Attention intact. No evidence of disorganizedthinking. 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 DIAGNOSTICS I have personally reviewed the laboratory data and imaging since admission, and in/outs for past 72 hours. Our radiologists read of the outside CT A/P from 03/19/21 revealed the followin. Interval dilation of the common bile duct, now measuring 2.3 cm. Interval placement of a biliary drain. The tip of one of the transgastric pigtail stents is now located in the distal aspect of the metallic biliary stent. Metallic biliary stent is in stable position. 2. Developing necrosis of the pancreatic neck. 3. Interval resolution of the areas of walled off peripancreatic necrosis. 4. Slight decrease in size in the pancreatic uncinate process mass. ERCP yesterday (03/19): - Ascending cholangitis due to occluded biliary stents. The plastic biliary stent was exchanged for a fully covered metal biliary stent (10 mm x 4 cm Wallflex) nested within the uncovered metal biliarystent. - A single localized moderate biliary stricture was found in the common bile duct due to tissue (presumably tumor) ingrowth within the uncovered metal stent. - Five stents were removed from the WON through the cystotomy around the region of the pancreatic tail. ASSESSMENT / PLAN Mr. Campbell is hospitalized on [place] [address] ([facility]) for evaluation and management of Malignant Neoplasm Of Pancreas (HCC). Mr. Adam Campbell is a 55 y.o. male with medical comorbidities significant for Stage 1B pancreatic cancer (s/p common bile duct stenting) who presented as a transfer from [facility] withabdominal pain, nausea and vomiting with elevated LFT's and CT A/P revealing a distended gallbladderand common bile duct dilatation. ?? His oncologic history per chart review, patient was diagnosed in 07/2020 with pancreatic cancer. After ERCP stent placement, he experienced post-ERCP pancreatitis, peripancreatic abscess and bacteremiathat was treated with IV antibiotics. In 09/2020, patient had cholangitis; his stent was noted to be p atent but he had a common bile duct stricture that caused hyperbilirubinemia. He began chemotherapy that was on hold after one cycle due to infection/pancreatitis. In 12/2020, patient was deemed not a surgical candidate for his pancreatic cancer, and he was started on curative radiation and chemotherapy with gemcitabine on 01/2021. Mr. Campbell underwent ERCP yesterday (03/19) which revealed ascending cholangitis 2/2 occluded biliary stent and moderate biliary stricture in the common bile duct. He has been on IV zosyn since yesterday.He is doing very well post ERCP with no signs or symptoms concerning for post-ERCP pancreatitis. Hislabs show improvement in his LFTs. Lipase is within normal limits. Plan to discharge to home this afternoon if he continues to do well. Patient states he will walk this morning and see how he does after resuming general diet. We will transition him to PO antibiotics. Discussed that he will need f/u LFTs and appt w/PCP in 1 week. # Malignant Neoplasm Of Pancreas (HCC) # Obstruction Common Bile Duct # Ascending cholangitis, secondary to occluded biliary stents # Immunodeficiency Due To Drugs (HCC) # Radiation Therapy Personal History - s/p ERCP, no signs/symptoms of post ERCP pancreatitis - started on IV zosyn 03/19, will transition to PO antibiotics - f/u blood cultures from 03/19 (in process) -f/u labs show improvement in his LFTs, he will need repeat LFTs and a follow up appointment with his PCP in one week - chemotherapy (gemcitabine) and radiation therapy, last given two weeks ago # Pain Cancer Associated -Tylenol 1,000 four times daily for pain -Patient takes 2mg dilaudid every three hours as needed for pain, will continue while inpatient # Severe Malnutrition -increase nutrient intake with small frequent meals, supplements per nutrition recs Severe Malnutrition The patient meets the ASPEN Criteria of malnutrition based on: ?? Average estimated Intake: No Change (<50% intake over 3 days GOLD MARKER d/t N/V) ?? Weight Loss: >10% in 6 months (8.8 kg (11.9%) wt loss/6 mo) ?? Body Fat: Moderate Loss ?? Muscle Mass: Severe Loss ?? Reduced Manager Managed Backup Services Strength: Not reduced This is in the context of Chronic Illness. Malnutrition Present Upon Admission: Yes Agree with Registered Dietitian's assessment and treatment plan: Interventions: Increase nutrient intake with small, frequent meals and/or snacks, Medical food supplement, Vitamin and mineral supplements, Collaboration and referral of nutrition care Baseline Mobility: BMAT Level 4 (Able to stand and walk) Diet: general diet Tubes/lines: Port in right chest VTE prophylaxis: enoxaparin Code status: Full Code Disposition: Home Stable to discharge criteria (not met): will discharge this afternoon if he continues to do well Plan discussed with [facility] Medicine 4 ([facility]) Supervisor Motor Vehicle [employer], John Allen, M.B.. Please page the [facility] Medicine 4 ([facility]) service pager at [phone] with any questions. Efren Shaw - 03/19/2021 10:27 AM CDT Clinical Nutrition: Initial Assessment RECOMMENDATIONS REQUIRING MD/PROVIDER ORDER 1) Encourage oral intake of 3 meals/day with additional oral nutrition supplements to provide adequate nutrition for weight maintenance and regain. 2) Encourage ordering shakes/smoothies with meals prn, and when pt appetite/intake is low at meal times. 3) Multivitamin with minerals For questions about patient's nutritional care please contact pager [phone] on weekdays or [phone] on weekends/holidays. NUTRITION ASSESSMENT: Mr. Campbell is a 55 y.o. male who was admitted for LLQ abdominal pain with 2-3 days of nausea/vomitingPTA. Requested to see patient for evaluation of: positive nursing baseline nutrition screen with a MST score of 2 or greater. MALNUTRITION CRITERIA: Nutrition focused physical exam completed by this typewriter ribbon winder today and revealed the following: Recent Oral Intake Average estimated Intake: No Change (<50% intake over 3 days GOLD MARKER d/t N/V) Weight Changes Weight Loss: >10% in 6 months (8.8 kg (11.9%) wt loss/6 mo) Body Fat Body Fat: Moderate Loss Orbital Region: Slightly dark circles, somewhat hollow look Upper Arm Region (Triceps/biceps): Some depth of pinch, but not ample Muscle Mass Muscle Mass: Severe Loss Temporal Region (Temporalis Muscle): Slight depression Clavicle Bone Region (Pectoralis Major, Deltoid, Trapezious Muscles: Visible in male, some protrusion in female Clavicle and Acromion Bone Region (Deltoid Muscle) : Acromion process may slightly protrude Scapular Bone Region (Trapezius, Supraspinus, Infraspinus Muscles): Mild depression or bone shows slightly Dorsal Hand (Interosseous Muscle): Muscle bulges or is flat Patellar Region (Quadricep Muscle): Knee cap less prominent, more rounded Anterior Thigh Region (Quadriceps Muscle): Mild depression on inner thigh Posterior Calf Region (Gastrocnemious Muscle) : Well-developed bulb of muscle Reduced Manager Managed Backup Services Strength Reduced Manager Managed Backup Services Strength: Not reduced Nutritional Status: Severe Malnutrition Malnutrition in the Context of: Chronic Illness Current nutrition orders: Current Diet No oral nutrition, no tube feeding starting at 03/19 0410 Current Nutrition (since admission): Admitted today, NPO since adm, no intake yet. Medications: Zenpep, protonix, miralax, senokot Pertinent Labs: creatinine: 0.62 mg/dL (L), total bilirubin: 3.4 mg/dL (H) Nutrition history: Mr. Campbell normally eats 3 meals per day. Breakfast includes kuwaiti muffin with jelly. Midmorning snack might include an egg sandwich. Lunch includes various different foods, pt provided mac and cheeseas an example. Dinner also varies, example of grilled cheese, tomato soup, and apple pie. Snacks include peanut butter ritz crackers, BBQ chips, chicken biscuit crackers, and ice cream. Fluid intake mainly consists of water. Pt has been consuming occasional strawberry or chocolate Boost at home with lunch. Also reports taking miralax and senna daily for proper stool regimen. Daily physical activity includes exercise with stationary bicycle at home. Pt is aware of his malnourished state and has been w orking on increasing intake and eating whatever sounds enjoyable. Examples of McDonalds or [employer] for a large meal, or eating an entire apple pie throughout a week. Pt reports his appetite/intake havebeen good, especially after the end of chemotherapy 2 weeks ago, until 2-3 days ago in which nausea/vomiting began. Over the past 2 days he has forced down 1/2 an kuwaiti muffin at breakfast and consumed a cup of soup over 1 hour. GI Related Hx: pancreatic cancer (completed chemotherapy in February), biliary malignancy resulting in stent placement, ERCP pancreatitis ANTHROPOMETRICS: Height: 173 cm Admission Weight: 65.3 kg (03/19/2021) Current Weight: 65.3 kg [place] Body Weight (Calculated) : 68.4 kg Weight change history: 08/14/20: 81.4 kg 09/23/20: 74.1 kg 10/29/20: 73 kg 12/31/20: 66.4 kg 02/19/21: 65.4 kg 03/19/21: 65.3 kg ESTIMATED NEEDS: Total Calorie Needs: 2719-0002 calories/day Method to Estimate Energy Needs: [place] (Basal to Basal + 20%) Weight Used for Equation Calculations: 65.3 kg Total Protein Needs: 65 - 78 grams/day Method to Estimate Protein Needs (g/kg): 1 - 1.2 gm/kg Weight Used to Calculate Protein Needs (Kg): 65.3 kg NUTRITION DIAGNOSIS: Malnutrition (undernutrition) related to inadequate oral intake in the setting of recent completion of chemotherapy for pancreatic cancer as evidenced by 8.8 kg (11.9%) wt loss over the past 6 months, moderate depletion of fat stores, and severe muscle wasting Nutrition Diagnosis Reassessment: Ongoing (previously diagnosed w/ chronic severe malnutrition on 01/01/21. NUTRITION PLAN/MONITORING/EVALUATION: Interventions: - Increase nutrient intake with small, frequent meals and/or snacks (provided snack, shake/smoothie,and ONS menus to order from prn) - Medical food supplement (Plan to add Boost BID once diet order advanced after procedure today) - Vitamin and mineral supplements (recommend MVM above) - Collaboration and referral of nutrition care (Potential for follow-up with outpatient dietitian for severe malnutrition dx) Monitoring: Diet Progression/NPO Status, Meals/Supplement Intake, Weight Status, Pertinent Labs, Nausea/Vomiting/Diarrhea . documented in this encounter H&P Notes John Farley M.B., Ch.B. - 03/19/2021 1:50 PM CDT I have personally seen and examined Mr. Adam Campbell with our medicine team, and I agree with the history, exam, and plan as documented in today's notes. Principal Problem: Malignant Neoplasm Of Pancreas (HCC) Active Problems: Obstruction Common Bile Duct Pain Cancer Associated Vomiting Immunodeficiency Due To Drugs (HCC) Radiation Therapy Personal History Resolved Problems: * No resolved hospital problems. * We await ERCP. Allen Calvin, Ch.B., [facility], FACMG, FACP Supervisor Motor Vehicle Assembly Hospitalist Jewel Schultz III, M.D. - 03/19/2021 3:02 AM CDT RST Medicine 4 ([facility]) Senior Resident Admission History and Physical Examination SUBJECTIVE CHIEF COMPLAINT HISTORY OF PRESENT ILLNESS Mr. Adam Campbell is a 55 y.o. male with medical comorbidities of pancreatic adenocarcinoma complicated by malignant biliary stenosis requiring stents, ERCP pancreatitis, and infected nonocclusive portal vein thrombosis who presents with gradually increasing LLQ abdominal pain and vomiting for the last 2-3 days The patient has localized pancreatic cancer with prior chemotherapy. His course was complicated by apseudocyst and ERCP pancreatitis, for which he has had multiple necrosectomies. 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 This was treated with ertapenem until 11/29/2020. The patient additionally has had multiple stents placed. Given the multiple infections/complications, he was not able to pursue significant chemotherapy and was re-evaluated 12/31/2020 and determined not to be a surgical candidate. He has since received radiation from -02/2021 and chemotherapy starting 01/2021 in finishing approximately 2 weeks ago. Per report, the patient has had increased upper quadrant abdominal pain and vomiting for the last 2-3 days. Given this, he presented to an outside emergency department. ED Course Presenting Vitals: Unremarkable Imaging obtained: CT abdomen/pelvis with a distended gallbladder, common bile duct dilated to 21 mm.Labs: ALT was with to 13, alkaline phosphatase 530, lipase normal. Lactate normal, no leukocytosis, normal AST, total bilirubin 0.4, direct bilirubin 2.7 Medications administered: Known On interview, he corroborates the above history. He states most of his pain is in the left lower quadrant which feels similar to his prior episodes of pancreatitis. He is taking his home 2 mg of p.o. Dilaudid without any significant relief. He has no other symptoms, no fevers, chills, changes of urine, chest pains, extremity swellings, or anything else of significance. No other complaints at this time I have reviewed and updated the following: Past Medical History, Family History, Social History, andAllergies. Current Outpatient Medications on File Prior to Encounter: ??? Creon 24,000-76,000 -120,000 unit capsule, TAKE 2 CAPSULES WITH MEALS AND 1 CAPSULE WITH SNACKS-MAY TAKE 1-2 CAPSULES WITH SNACKS IF NEEDED ??? acetaminophen (TYLENOL) 500 mg tablet, Take 2 tablets (1,000 mg total) by mouth 3 (three) times a day. ??? HYDROmorphone (DILAUDID) 4 mg tablet, Take 1-1.5 tablets (4-6 mg total) by mouth every 3 (three)hours as needed for pain Indication: Chronic Pain/Nonacute Pain. ??? ketorolac (TORADOL) 10 mg tablet, Take 1 tablet (10 mg total) by mouth 2 (two) times a day as needed for pain. ??? lidocaine (LMX) 4 % cream, Apply 1 application topically 3 (three) times a day as needed for pain. May try over the counter lidocaine cream for back pain ??? LORazepam (Ativan) 0.5 mg tablet, Take 1 tablet (0.5 mg total) by mouth 2 (two) times a day as needed for anxiety. ??? ondansetron (ZOFRAN) 8 mg tablet, Take 1 tablet (8 mg total) by mouth every 8 (eight) hours as needed for nausea or vomiting. ??? pantoprazole (PROTONIX) 40 mg EC tablet, Take 1 tablet (40 mg total) by mouth every morning before breakfast. ??? polyethylene glycol (MIRALAX) 17 gram powder packet, Take 1 packet (17 g total) by mouth 2 (two)times a day. Dissolve each 17 g dose in 240 mLs (8 ounces) of beverage. ??? sennosides-docusate sodium (SENOKOT-S) 8.6-50 mg per tablet, Take 3 tablets by mouth 2 (two) times a day. ??? sucralfate (CARAFATE) 1 gram tablet, TAKE ONE TABLET BY MOUTH FOUR TIMES DAILY NEEDED for upper abdominal pain. ??? traZODone (DESYREL) 50 mg tablet, Take 1-2 tablets (50-100 mg total) by mouth at bedtime. Take 50 mg daily at bedtime for at least 7 days. If ineffective, may trial increase to 100 mg daily at bedtime. REVIEW OF SYSTEMS Pertinent items are noted in HPI; all other review of systems was negative. OBJECTIVE VITAL SIGNS Temperature: [36.2 ??C] 36.2 ??C Heart Rate: [71-83] 83 Resp Rate: [14-16] 16 Blood Pressure: (109-129)/(71-89) 124/89 SpO2: [92 %-100 %] 100 % Height: [173 cm] 173 cm Weight: [65.3 kg] 65.3 kg Pulse Rate: [76-81] 81 PHYSICAL EXAM Gen: Cachectic-appearing Skin: Skin of face, arms, hands without rash HEENT: Eyes have no icterus or injection Lungs: Clear to auscultation bilaterally without rales, wheeze, rhonchi. CV: Regular rate and rhythm without murmur, rub or gallop. No lower extremity edema Abd: Nondistended abdomen. No tenderness to palpation all 4 abdominal quadrants. Extremities: warm, dry to touch PSYCH: Mood and affect appropriate. NEURO: No dysarthria, no aphasia MSK: Moving all extremities without restriction or deformity DIAGNOSTICS I have reviewed the labs, ECG and xray, diagnostics rom admission. ASSESSMENT / PLAN Mr. Campbell is hospitalized on [facility] Medicine 4 ([facility]) for evaluation and management of Abdominal Pain. 55 y.o. 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 My review of the images is consistent with this as there appears to be biliary fluid proximal to the stent leading to significant ductal dilation. He has a laboratory correlation of cholestatic pattern with alkaline phosphatase 530, total bilirubin 3.4, direct bilirubin 2.7. Will have our radiologist read his CT, especially given that his pain findings are most predominant in left lower quadrant. Will liaise with GI, patient likely will require repeat ERCP. Will initiate empiric antibiotics jackelin procedurally given his high risk of infection from the block duct. # Pancreatic adenocarcinoma of the uncinate process -CBC, CMP, INR lipase -type and cross - NPO for possible ERCP -empiric zosyn, can likely be de-escalated to ciprofloxacin post ERCP - obtain Blood cultures ?? # Abdominal Pain # Pain associated with malignancy -home Dilaudid 2 mg - continue home blood p.r.n., add additional IV 0.2 Dilaudid - Continue home bowel regimen: MiraLAX BID, Senekot 3 tablets BID ?? # GERD - continue home pantoprazole 40 mg daily # malnutrition -clinically he appears malnourished, will have a dietitian evaluate Baseline Mobility: BMAT Level 4 (Able to stand and walk) Diet: NPO for possible procedure diet Tubes/lines: PIV VTE prophylaxis: None pending possible procedure Code status: Full Code Disposition: Home This patient will be discussed with the Medicine dietitian consultant in the morning. All questions were answered to the best of my ability and no barriers to understanding were identified. Please contact the [facility] Medicine 4 ([facility]) pager if there are questions regarding this patient's care. Mick Schultz Internal Medicine PGY3 Pager [phone] Savannah Alex M.D. - 03/19/2021 2:[address] [facility] Medicine 4 ([facility]) Admission Note SUBJECTIVE CHIEF COMPLAINT Abdominal pain HISTORY OF PRESENT ILLNESS Mr. Adam Campbell is a 55 y.o. male with a PMHx of Stage 1B pancreatic cancer (s/p common bileduct stent) who presents as a transfer from [facility] with abdominal pain and vomiting. Ofnote, at [facility], he had elevated LFT's and CT of abdomen and pelvis revealed a distended gallbladder, with common bile duct dilated to 21mm. Upon transfer, patient was hemodynamically stable. He states he's been having a couple days of abdominal pain, nausea, and vomiting. His abdominal pain is 7/10, sharp, and localized to his left lower quadrant. Coughing and hiccups make the pain worse, dilaudid helps the pain. He has been trying to keep small meals down and drinks about 2-3 cups of water a day. In regards to his oncologic history, per chart review, patient was diagnosed in 07/2020 with pancreatic cancer. After ERCP stent placement, he experienced pancreatitis, peripancreatic abscess and bacteremia that was treated with IV antibiotics. In 09/2020, patient had cholangitis; his stent was noted to be patent but he had a common bile duct stricture that caused hyperbilirubinemia. He began chemotherapy that was on hold after one cycle due to infection/pancreatitis. In 12/2020, patient was deemed not a surgical candidate for his pancreatic cancer, and he was started on curative radiation and chemoth erapy with gemcitabine on 01/2021. I have reviewed and updated the following: Past Medical History, Family History, Social History, andAllergies. Current Outpatient Medications on File Prior to Encounter: ??? Creon 24,000-76,000 -120,000 unit capsule, TAKE 2 CAPSULES WITH MEALS AND 1 CAPSULE WITH SNACKS-MAY TAKE 1-2 CAPSULES WITH SNACKS IF NEEDED ??? acetaminophen (TYLENOL) 500 mg tablet, Take 2 tablets (1,000 mg total) by mouth 3 (three) times a day. ??? HYDROmorphone (DILAUDID) 4 mg tablet, Take 1-1.5 tablets (4-6 mg total) by mouth every 3 (three)hours as needed for pain Indication: Chronic Pain/Nonacute Pain. ??? ketorolac (TORADOL) 10 mg tablet, Take 1 tablet (10 mg total) by mouth 2 (two) times a day as needed for pain. ??? lidocaine (LMX) 4 % cream, Apply 1 application topically 3 (three) times a day as needed for pain. May try over the counter lidocaine cream for back pain ??? LORazepam (Ativan) 0.5 mg tablet, Take 1 tablet (0.5 mg total) by mouth 2 (two) times a day as needed for anxiety. ??? ondansetron (ZOFRAN) 8 mg tablet, Take 1 tablet (8 mg total) by mouth every 8 (eight) hours as needed for nausea or vomiting. ??? pantoprazole (PROTONIX) 40 mg EC tablet, Take 1 tablet (40 mg total) by mouth every morning before breakfast. ??? polyethylene glycol (MIRALAX) 17 gram powder packet, Take 1 packet (17 g total) by mouth 2 (two)times a day. Dissolve each 17 g dose in 240 mLs (8 ounces) of beverage. ??? sennosides-docusate sodium (SENOKOT-S) 8.6-50 mg per tablet, Take 3 tablets by mouth 2 (two) times a day. ??? sucralfate (CARAFATE) 1 gram tablet, TAKE ONE TABLET BY MOUTH FOUR TIMES DAILY NEEDED for upper abdominal pain. ??? traZODone (DESYREL) 50 mg tablet, Take 1-2 tablets (50-100 mg total) by mouth at bedtime. Take 50 mg daily at bedtime for at least 7 days. If ineffective, may trial increase to 100 mg daily at bedtime. REVIEW OF SYSTEMS Constitutional: Negative for fever and chills, positive for normal weight loss Eyes: Negative for changes in vision Respiratory: Positive for shortness of breath for a couple of weeks, worse with activity. Negative for cough Cardiovascular: Negative for chest pain and heart palpitations Gastrointestinal: Positive for diarrhea due to laxatives, negative for constipation, negative for blood in emesis Genitourinary:Positive for dysuria (for months) Integument/breast: Negative for new rashes Musculoskeletal:Negative for joint pain Neurological: Negative for headaches OBJECTIVE VITAL SIGNS Temperature: [36.2 ??C] 36.2 ??C Heart Rate: [71-83] 83 Resp Rate: [14-16] 16 Blood Pressure: (109-129)/(71-89) 124/89 SpO2: [92 %-100 %] 100 % Height: [173 cm] 173 cm Weight: [65.3 kg] 65.3 kg Pulse Rate: [76-81] 81 PHYSICAL EXAM General Appearance: Patient is ill-appearing and cachetic. In no acute distress Eyes: Normal extraocular movements ENT: Normocephalic and atraumatic head Cardiac: Normal rate and regular rhythm, no murmurs. 2+ radial pulses, no lower extremity edema. Pulmonary: Clear to auscultation bilaterally, no wheezes, rales Abdomen: Normoactive bowel sounds, soft abdomen, exquisitely tender to palpation diffusely, but particularly in right upper quadrant, epigastric, and left lower quadrant pain Skin: hyperpigmented patch in mid back. Patient is jaundiced. Port in right chest clean, dry, and intact Psychiatric: normal mood and appropriate affect DIAGNOSTICS I have reviewed the labs and diagnostics from admission. ASSESSMENT / PLAN Mr. Campbell is hospitalized on [facility] Medicine 4 ([facility]) for evaluation and management of Abdominal Pain. Given his history of pancreatic cancer with stent placement, history of cholangitis due to common bileduct stricture, and dilated common bile duct, this patient should be worked up for stent failure as the cause of his presentation. #Abdominal pain #Vomiting -This acute vomiting and abdominal pain is currently thought to be due to common bile stent failure as the common bile duct is dilated -However, this would not account for left lower quadrant pain the patient is describing, will perform over-read of the outside CT scan by our facility -ERCP ordered, patient is NPO in anticipation of this procedure -GI consult ordered -Due to patient's immunosuppressed status (chemo 2 weeks ago), will start patient on zosyn to cover for any occult infection associated with this acute presentation -Blood cultures ordered before zosyn began -CMP, CBC, INR, type and screen ordered #Pancreatic cancer #Pain associated with cancer -Current treatment plan is chemotherapy (gemcitabine) and radiation therapy, last given two weeks ago -Patient takes 2mg dilaudid every three hours as needed for pain, will continue will inpatient -Tylenol 1,000 four times daily for pain -Patient takes CREON as pancreatic enzyme outpatient, continue with ZENPEP inpatient -Prophylactic anticoagulation with lovenox while inpatient -Continue with 8mg zofran Q8hrs PRN #GERD -Continue PPI inpatient (equivalent of home PPI) #Constipation -Continue miralax and senokot daily #Anxiety -Continue with home 0.5mg ativan twice daily PRN Baseline Mobility: BMAT Level 4 (Able to stand and walk) Diet: NPO diet Tubes/lines: Port in right chest VTE prophylaxis: enoxaparin Code status: Full Code Disposition: Uncertain documented in this encounter Nursing Notes Benjamin Ruiz R.N. - 03/20/2021 2:30 PM CDT Pt is vitally stable for discharge. All discharge instructions were completed and patient verbalizedunderstanding. He is discharging home with his providing transport. Jackie Kamara R.N. - 03/20/2021 5:15 AM CDT Shift Goals: Clinical Goals for the Shift: Pain management Identify possible barriers to meeting goals/advancing plan of care: Diagnsosis End of Shift Summary: VSS. Patient slept for most of the night. No complaints of pain until 629 pt reported 7/10 back pain and was given PRN oral Dilaudid. TETO Meija [phone] Problem: PAIN - ADULT Goal: PT VERBALIZES/DEMONSTRATES ADEQUATE COMFORT LEVEL OR BASELINE Outcome: Progressing Note: Pt received PRN oral dilaudid for 7/10 back pain this morning. Problem: INFECTION - ADULT Goal: Absence of infection during hospitalization Outcome: Progressing Note: Patient remained afebrile this shift. Suni Roberts R.N. - 03/19/2021 3:27 PM CDT Shift Goals: Clinical Goals for the Shift: Pain management Identify possible barriers to meeting goals/advancing plan of care: abdominal pain End of Shift Summary: Patient did not take any PRN medications for pain on this shift. Patient had abowel movement on this shift and stated it was almost white. This nurse reminded patient not to flush so nursing could assess in the future. Patient was NPO on this shift and went down for ERCP at 1500. Patients was here visiting. VSS. Problem: PAIN - ADULT Goal: PT VERBALIZES/DEMONSTRATES ADEQUATE COMFORT LEVEL OR BASELINE Outcome: Progressing Problem: SAFETY ADULT - RISK FOR FALL AND OR FALL INJURY Goal: Patient remains free from fall/fall injury Outcome: Progressing Thais Balderas R.N. - 03/19/2021 6:55 AM CDT Shift Goals: Clinical Goals for the Shift: Patient will rate pain as 4 or less during the shift. Identify possible barriers to meeting goals/advancing plan of care: admitted for abdominal pain and distended gallbladder noted on CT End of Shift Summary: Goal met. Patient was admitted to the floor around 0200 overnight. Upon arriving on the floor, the patient rated his pain at about a 7/10. A dose of oral dilaudid was given, following his admission. Patient rated his pain at about a 3/10, after interventions. A one time dose of IV dilaudid was held at that time. Patient stated that his pain management was adequate, and further interventions were declined. Vitals remained stable overnight. documented in this encounter Miscellaneous Notes Hospital Course - Bryan Riddle M.D. - 03/19/2021 7:00 AM CDT Mr. Adam Campbell is a 55 y.o. male with medical comorbidities of pancreatic adenocarcinoma complicated by malignant biliary stenosis requiring stents, ERCP pancreatitis, and infected nonocclusive portal vein thrombosis who was admitted 03/19/21 as a transfer from [facility] with abdominal pain, nausea and vomiting with elevated LFT's and CT A/P revealing a distended gallbladder and common bile duct dilatation - found to have ascending cholangitis secondary to malignant biliary stenosiswith occluded biliary stents. His oncologic history per chart review, patient was diagnosed in 07/2020 with pancreatic cancer. After ERCP stent placement, he experienced post-ERCP pancreatitis, peripancreatic abscess and bacteremiathat was treated with IV antibiotics. In 09/2020, patient had cholangitis; his stent was noted to be p atent but he had a common bile duct stricture that caused hyperbilirubinemia. He began chemotherapy that was on hold after one cycle due to infection/pancreatitis. In 12/2020, patient was deemed not a surgical candidate for his pancreatic cancer, and he was started on curative radiation and chemotherapy with gemcitabine on 01/2021. On admission, Mr. Campbell was started on IV zosyn and blood cultures were drawn prior to initiating him on zosyn (in process as of 03/20/21). On admission to [facility] his total bilirubin was elevated to 3.4, direct bilirubin 2.9, ALT 159, AST 61, alkaline phosphatase 556. Lipase was 5. Our radiologists read of the outside CT A/P from 03/19/21 revealed the followin. Interval dilation of the common bile duct, now measuring 2.3 cm. Interval placement of a biliary drain. The tip of one of the transgastric pigtail stents is now located in the distal aspect of the metallic biliary stent. Metallic biliary stent is in stable position. 2. Developing necrosis of the pancreatic neck. 3. Interval resolution of the areas of walled off peripancreatic necrosis. 4. Slight decrease in size in the pancreatic uncinate process mass. Mr. Campbell underwent ERCP on 03/19/21 which was notable for: - Ascending cholangitis due to occluded biliary stents. The plastic biliary stent was exchanged for a fully covered metal biliary stent (10 mm x 4 cm Wallflex) nested within the uncovered metal biliarystent. - A single localized moderate biliary stricture was found in the common bile duct due to tissue (presumably tumor) ingrowth within the uncovered metal stent. - Five stents were removed from the WON through the cystotomy around the region of the pancreatic tail. Mr. Campbell did very well post-ERCP with no complications. He remained afebrile and stable overnight. His LFTs improved from admission and on 03/20/21 his total bilirubin was 1.5, direct 1.2, ALT 106, AST35, alkaline phosphatase 467. Lipase 26. He did not have any clinical signs or symptoms concerning for post-ERCP pancreatitis and his lipase is within normal limits at discharge. Mr. Campbell was transitioned from IV zosyn to PO antibiotics. He was started on 03/20/21 PO levaquin 750mg once daily and PO flagyl 500mg BID. He will continue the levaquin and flagyl for 5 days until 03/25/21 We discussed that he will need repeat LFTs and a follow up appointment with his PCP in one week. New medications at discharge: Levofloxacin (levaquin) tablet 750mg once daily, for 5 days until 03/25/21 Metronidazole (flagyl) tablet 500mg 3 times daily, for 5 days until 03/25/21 documented in this encounter Plan of Treatment Upcoming Encounters Date Type Specialty Care Team Description 06/22/2022 Lab Laboratory Medicine Maria Del Rosario Gomez AP RN, C.N.P., M.S. [address] [place] [address] [phone] (Mj godoy) 06/22/2022 Infusion Oncology Maria Del Rosario Gomez APRN, C.N .P., M.S. [address] [place] [address] [phone] (Mj rk) 06/29/2022 Lab Laboratory Medicine Maria Del Rosario Gomez AP RN, C.N.P., M.S. [address] [place] [address] [phone] (Mj rk) 06/29/2022 Infusion Oncology Maria Del Rosario Gomez APRN, C.N .P., M.S. [address] [place] [address] [phone] (Mj rk) documented as of this encounter Procedures Procedure Name Priority Date/Time Associated Comments Diagnosis HEPATIC FUNCTION Routine 03/20/2021 3:54 Results for PANEL, S AM CDT this procedure are in the results section. CBC WITH Routine 03/20/2021 3:54 Results for DIFFERENTIAL, B AM CDT this procedu re are in the results section. LIPASE, S/P Routine 03/20/2021 3:54 Results for AM CDT this procedure are in the results section. BASIC METABOLIC Routine 03/20/2021 3:54 Results f or PANEL, S/P AM CDT this procedure are in the results section. ADULT OXYGEN THERAPY Routine 03/19/2021 5:36 PM CDT ADULT OXYGEN THERAPY Routine 03/19/2021 5:36 PM CDT FL FLUORO LESS THAN 1 Routine 03/19/2021 5:32 Res ults for HOUR PM CDT this procedure are in the results section. ERCP Routine 03/19/2021 4:24 Results for PM CDT this procedure are in the results section. ERCP Routine 03/19/2021 4:24 PM CDT BACTERIA / BRIGID STAT 03/19/2021 8:14 Result s for CULTURE, BLOOD AM CDT this procedur e are in the results section. PROTHROMBIN TIME STAT 03/19/2021 7:55 Results for (PT), P AM CDT this procedure are in the results section. CBC WITH STAT 03/19/2021 7:55 Results for DIFFERENTIAL, B AM CDT this procedu re are in the results section. TYPE AND SCREEN Routine 03/19/2021 7:55 Results f or AM CDT this procedure are in the results section. LIPASE, S/P STAT 03/19/2021 7:55 Results for AM CDT this procedure are in the results section. BILIRUBIN DIRECT, S/P STAT 03/19/2021 7:55 Res ults for AM CDT this procedure are in the results section. COMPREHENSIVE STAT 03/19/2021 7:55 Results for METABOLIC PANEL, S/P AM CDT this pr ocedure are in the results section. BACTERIA / BRIGID STAT 03/19/2021 7:34 Result s for CULTURE, BLOOD AM CDT this procedur e are in the results section. INTERPRETATION OF RAD - Routine 03/19/2021 5:54 Result s for OUTSIDE CT ABDOMEN (most inpatients AM CDT this procedure AND OR PELVIS and all are in the outpatients) results section. SARS CORONAVIRUS 2, Routine 03/19/2021 3:02 Resul ts for RNA, RAPID POC, V AM CDT this proce dure are in the results section. documented in this encounter Results Lipase (03/20/2021 3:54 AM CDT) P athologist Signature Lipase, S 26 13 - 60 U/L 03/20/2021 5:08 DTL AM CDT Specimen Anatomical Collection Method Collection Time Receive d Time (Source) Location / / Volume Laterality Blood (Blood, 03/20/2021 3:54 AM 03/20/20 4:35 Venous) CDT AM CDT Savannah Leyva M.D. LAB BLOOD ADD-ON Performing Organization Address City/State/ZIP Code Phon e Number [facility] [address] [place], [place] [address] [facility] [place] [address] Laboratories-[facility] [address] [facility] (ABNORMAL) Hepatic Function Panel (03/20/2021 3:54 AM CDT) Patholo gist Method Time Signature Bilirubin, Total, S 1.5 (H) <=1.2 03/20/2021 DTL mg/dL 5:08 AM CDT Bilirubin, Direct, S 1.2 (H) 0.0 - 0.3 03/20/2021 DTL mg/dL 5:08 AM CDT Aspartate 35 8 - 48 03/20/2021 DTL Aminotransferase U/L 5:08 AM CDT (AST), S Alanine 106 (H) 7 - 55 03/20/2021 DTL Aminotransferase U/L 5:08 AM CDT (ALT), S Alkaline 467 (H) 40 - 129 03/20/2021 DTL Phosphatase, S U/L 5:08 AM CDT Albumin, S 2.9 (L) 3.5 - 5.0 03/20/2021 DTL g/dL 5:08 AM CDT Protein, Total, S 5.5 (L) 6.3 - 7.9 03/20/2021 DTL g/dL 5:08 AM CDT Specimen Anatomical Collection Method Collection Time Receive d Time (Source) Location / / Volume Laterality Blood (Blood, 03/20/2021 3:54 AM 03/20/20 21 4:35 Venous) CDT AM CDT Savannah Leyva M.D. LAB BLOOD ADD-ON Performing Organization Address City/State/ZIP Code Phon e Number [facility] - [address] [place], [place] [address] [facility] [place] [address] Laboratories-[facility] [address] (ABNORMAL) Basic Metabolic Panel (03/20/2021 3:54 AM CDT) Analysis Performed At Patho logist Time Signature Potassium, S 3.6 3.6 - 5.2 03/20/2021 DTL mmol/L 5:08 AM CDT Sodium, S 139 135 - 145 03/20/2021 DTL mmol/L 5:08 AM CDT Chloride, S 103 98 - 107 03/20/2021 DTL mmol/L 5:08 AM CDT Bicarbonate, S 26 22 - 29 03/20/2021 DTL mmol/L 5:08 AM CDT Anion Gap 10 7 - 15 03/20/2021 DTL 5:08 AM CDT BUN (Blood Urea 10 8 - 24 03/20/2021 DTL Nitrogen), S mg/dL 5:08 AM CDT Creatinine 0.71 (L) 0.74 - 03/20/2021 DTL 1.35 mg/dL 5:08 AM CDT eGFR-Non >90 >=60 03/20/2021 DTL Black/ mL/min/BSA 5:08 AM CDT [place] Comment: ----ADDITIONAL INFORMATION---- Estimated GFR calculated using the 2009 CKD_EPI creatinine equation. eGFR-Black/ >90 >=60 mL/min/BSA 2020 5:08 AM CDT DTL Comment: ----ADDITIONAL INFORMATION---- Estimated GFR calculated using the 2009 CKD_EPI creatinine equation. Calcium, Total, S 8.4 (L) 8.6 - 10.0 mg/dL 03/20/2021 5:08 AM CDT DTL Glucose, S 73 70 - 140 mg/dL 03/20/2021 5:08 AM CDT D TL Specimen Anatomical Collection Method Collection Time Receive d Time (Source) Location / / Volume Laterality Blood (Blood, 03/20/2021 3:54 AM 03/20/20 4:35 Venous) CDT AM CDT Savannah Leyva M.D. LAB BLOOD ADD-ON Performing Organization Address City/State/ZIP Code Phon e Number [facility] - [address] [place], [place] [address] [facility] [place] [place] [address] Laboratories-[facility] [address] [facility] (ABNORMAL) CBC with Differential, Blood (03/20/2021 3:54 AM CDT) [facility] Method Time Signature Hemoglobin 10.2 (L) 13.2 - 03/20/2021 DTL 16.6 g/dL 4:40 AM CDT Hematocrit 31.4 (L) 38.3 - 03/20/2021 DTL 48.6 % 4:40 AM CDT Erythrocytes 3.65 (L) 4.35 - 03/20/2021 DTL 5.65 4:40 AM CDT x10(12)/L MCV 86.0 78.2 - 03/20/2021 DTL 97.9 fL 4:40 AM CDT RBC Distrib Width 19.1 (H) 11.8 - 03/20/2021 DTL 14.5 % 4:40 AM CDT Platelet Count 249 135 - 317 03/20/2021 DTL x10(9)/L 4:40 AM CDT Leukocytes 4.9 3.4 - 9.6 03/20/2021 DTL x10(9)/L 4:40 AM CDT Neutrophils 3.69 1.56 - 03/20/2021 DTL 6.45 5:31 AM CDT x10(9)/L Comment: Rechecked Lymphocytes 0.42 (L) 0.95 - 3.07 x10(9)/L 03/20/2021 5:31 A M CDT DTL Monocytes 0.57 0.26 - 0.81 x10(9)/L 03/20/2021 5:31 AM CDT DTL Eosinophils 0.19 0.03 - 0.48 x10(9)/L 03/20/2021 5:31 A M CDT DTL Basophils 0.04 0.01 - 0.08 x10(9)/L 03/20/2021 5:31 AM CDT DTL Specimen Anatomical Collection Method Collection Time Receive d Time (Source) Location / / Volume Laterality Blood (Blood, 03/20/2021 3:54 AM 03/20/20 4:35 Venous) CDT AM CDT Savannah Leyva M.D. LAB BLOOD ADD-ON Performing Organization Address City/State/ZIP Code Phon e Number [facility] - [address] [place], [place] [address] [facility] [place] [address] Laboratories[facility] [address] [facility] [place] Fluoro Less Than 1 Hour (03/19/2021 5:32 PM CDT) Specimen (Source) Anatomical Location Collection Method / Collectio n Time Received Time / Laterality Volume Narrative ERCP LOS RST - 03/19/2021 5:32 PM CDT This exam does not require a radiologist review or interpretation. Please refer to the patient's medical record on this date for clinical details. Savannah Leyva M.D. IMG FLUOROSCOPY PROCEDURES Performing Organization Address City/[facility]/ZIP Code Phon e Number ERCP LOS RST ERCP (03/19/2021 4:24 PM CDT) Specimen (Source) Anatomical Collection Method Collection Time Re ceived Time Location / / Volume Laterality 03/19/2021 4:24 PM CDT Impressions [facility] - 03/19/2021 5:49 PM CDT Post-op Diagnoses: ? - Ascending cholangitis due to oc cluded biliary stents. The plastic ? biliary stent was exchanged for a fully covered metal biliary stent (10 ? mm x 4 cm Wallflex) nested within the uncovered metal biliary stent. ? - A single localized moderate jennifer iary stricture was found in the common ? bile duct due to tissue (presumab ly tumor) ingrowth within the uncovered ? metal stent. ? - Five stents were removed from t he WON through the cystotomy around the ? region of the pancreatic tail. Narrative [facility] - 03/19/2021 5:49 PM CDT [facility] GI Patient Name: Adam Campbell Date of : 1965 Age: 55 Gender: Male Procedure Date: 03/19/2021 Procedure: ? ERCP Providers: ? Wally ferrell MD, Yogesh Martinez MD ? (Karen llow), Radu Ellis MD (Fellow) Referring Provider: ?Savannah K. C hetram Pre-op Diagnoses: ?Follow-up o f ascending cholangitis, Malignant tumor ? of the head of pancreas, Stent change Recommendation: ? - Return patient to [facility] for [facility] care. ? - Resume previous diet. ? - Use broad spectrum antibiotics. ? - Observe patient's clinical cour se. ? - Return to this GI lab for stent exchange at ERCP only as needed for ? symptoms. The current stents may remain in place indefinitely. Findings: ? A aerophysicist film of the abdomen was o btained. Two stents ending in the main ? bile duct were seen. Multiple erasto stic double pigtail cystgastrostomy ? stents ending in the prior WON ca vity around the region of the ? pancreatic tail were seen.The eso phagus was successfully intubated under ? direct vision without detailed ex amination of the pharynx, larynx, and ? associated structures, and upper GI tract. The upper GI tract was ? grossly normal. Two biliary stent s originating in the biliary tree were ? emerging from the major papilla ( one plastic and one metal). The stents ? were visibly occluded. The plasti c stent was removed from the biliary ? tree using a snare. A 0.035 inch angled Glidewire was passed into the ? biliary tree. The 8.5 mm balloon was passed over the guidewire and the ? bile duct was then deeply cannula sally. Contrast was injected. I ? personally interpreted the bile d uct images. There was brisk flow of ? contrast through the ducts. Image quality was excellent. Contrast ? extended to the entire biliary tr ee. The common bile duct contained a ? single moderate localized stenosi s 10 mm in length due to tissue ? ingrowth within the uncovered met al stent. The main bile duct was ? markedly dilated upstream from th e stent. The biliary tree was swept ? with an 11.5 mm balloon and 15 mm balloon starting at the upper third of ? the main bile duct. Pus was swept from the duct. Sludge was swept from ? the duct. One 10 mm by 4 cm BSC f ully covered metal biliary stent was ? placed into the common bile duct. Bile and sludge flowed through the ? stent. The stent was in good posi tion. Occlusion cholangiography ? demonstrated a patent cystic duct after stent placement. Subsequently ? five stents were removed from the WON cavity through the cystotomy using ? a rat-toothed forceps and snare. Procedural Details: ? The patient was seen, evaluated, history reviewed, airway and heart-lung ? exams were performed by licensed provider and were satisfactory for ? planned level of sedation care. ? The risks, benefits and alternati ves for the procedure and sedation were ? discussed and informed consent wa s obtained. A procedural pause was ? conducted in the presence of assi sting personnel to verify the correct ? patient identity and procedure to be performed. Throughout the ? procedure, the patient's blood pr essure, pulse, and oxygen saturations ? were monitored continuously. The Duodenoscope was introduced under ? direct vision through the mouth, and used to inject contrast into the ? bile duct. The ERCP was accomplis hed without difficulty. The patient ? tolerated the procedure well. Estimated Blood Loss: ?None. Complications: ? No immedia te complications. Sedation: ? Anesthesia was administered by an anesthesia professional. The following ? parameters were monitored: oxygen saturation, heart rate, blood ? pressure, respiratory rate, EKG, adequacy of pulmonary ventilation, and ? response to care. Attending Participation: I personally pe rformed the entire procedure. Wally Alcala MD 03/19/2021 5:49:00 PM This report has been signed electronical ly. Number of Addenda: 0 Savannah Leyva M.D. GI PROCEDURE ORDERABLES Performing Organization Address City/[facility]/ZIP Code Phon e Number [facility] NA Bacteria / Brigid Culture, Blood #2 (03/19/2021 8:14 AM CDT) [facility] Method Time Signature Bacteria/Jane No growth 03/24/2021 DT da Culture, after 5 9:02 AM CDT Blood days of incubation. Specimen (Source) Anatomical Collection Method Collection Time Re ceived Time Location / / Volume Laterality Blood (Blood, 03/19/2021 8:14 03/19/2021 8:50 Peripheral Draw) AM CDT AM CDT Comment: Specimen Source Site: Blood Savannah Leyva M.D. LAB MICROBIOLOGY - GENERAL O RDERABLES Performing Organization Address City/[facility]/ZIP Code Phon e Number [facility] - [address] [place], [place] [address] [facility] [place] [address] Laboratories-[address] (ABNORMAL) Prothrombin Time (PT) (03/19/2021 7:55 AM CDT) [facility] Method Time Signature Prothrombin 13.2 (H) 9.4 - 12.5 03/19/2021 STMA Time, P sec 8:11 AM CDT INR 1.2 0.9 - 1.1 03/19/2021 STMA 8:11 AM CDT Comment: ----ADDITIONAL INFORMATION---- Standard intensity warfarin therapeutic range: 2.0 to 3.0 ?? High intensity warfarin therapeutic rang e: 2.5 to 3.5 Specimen Anatomical Collection Method Collection Time Receive d Time (Source) Location / / Volume Laterality Blood (Blood, 03/19/2021 7:55 AM 03/19/20 8:04 Venous) CDT AM CDT Timothy Chung M.D. LAB BLOOD ADD-ON Performing Organization Address City/[facility]/ZIP Code Phon e Number [facility] - [address] (ABNORMAL) Bilirubin, Direct (03/19/2021 7:55 AM CDT) athologist Signature Bilirubin, 2.9 (H) 0.0 - 0.3 03/19/2021 [facility] Direct, P mg/dL 8:26 AM CDT Specimen Anatomical Collection Method Collection Time Receive d Time (Source) Location / / Volume Laterality Blood (Blood, 03/19/2021 7:55 AM 03/19/20 8:04 Venous) CDT AM CDT Timothy Chung M.D. LAB BLOOD ADD-ON Performing Organization Address City/[facility] Phon e Number [facility] - [address] (ABNORMAL) Lipase (03/19/2021 7:55 AM CDT) athologist Signature Lipase, S 5 (L) 13 - 60 U/L 03/19/2021 9:10 DTL AM CDT Specimen Anatomical Collection Method Collection Time Receive d Time (Source) Location / / Volume Laterality Blood (Blood, 03/19/2021 7:55 AM 03/19/20 21 8:43 Venous) CDT AM CDT Timothy Chung M.D. LAB BLOOD ADD-ON Performing Organization Address City/State/[facility] Phon e Number [facility] - [address] (ABNORMAL) Comprehensive Metabolic Panel (03/19/2021 7:55 AM CDT) Analysis Performed At Patho logist Time Signature Potassium, S 3.9 3.6 - 5.2 03/19/2021 DTL mmol/L 9:10 AM CDT Sodium, S 139 135 - 145 03/19/2021 DTL mmol/L 9:10 AM CDT Chloride, S 105 98 - 107 03/19/2021 DTL mmol/L 9:10 AM CDT Bicarbonate, S 26 22 - 29 03/19/2021 DTL mmol/L 9:10 AM CDT Anion Gap 8 7 - 15 03/19/2021 DTL 9:10 AM CDT BUN (Blood Urea 9 8 - 24 03/19/2021 DTL Nitrogen), S mg/dL 9:10 AM CDT Creatinine 0.62 (L) 0.74 - 03/19/2021 DTL 1.35 mg/dL 9:10 AM CDT eGFR-Non >90 >=60 03/19/2021 DTL Black/ mL/min/BSA 9:10 AM CDT [place] Comment: ----ADDITIONAL INFORMATION---- Estimated GFR calculated using the 2009 CKD_EPI creatinine equation. eGFR-Black/ >90 >=60 mL/min/BSA 2020 9:10 AM CDT DTL Comment: ----ADDITIONAL INFORMATION---- Estimated GFR calculated using the 2009 CKD_EPI creatinine equation. Calcium, Total, S 8.5 (L) 8.6 - 10.0 mg/dL 03/19/2021 9:10 AM CDT DTL Glucose, S 76 70 - 140 mg/dL 03/19/2021 9:10 AM CDT D TL Protein, Total, S 5.9 (L) 6.3 - 7.9 g/dL 03/19/2021 9:10 A M CDT DTL Albumin, S 3.1 (L) 3.5 - 5.0 g/dL 03/19/2021 9:10 AM CDT D TL Aspartate Aminotransferase 61 (H) 8 - 48 U/L 03/19/2021 9 :10 AM CDT DTL (AST), S Alkaline Phosphatase, S 556 (H) 40 - 129 U/L 03/19/2021 9: 10 AM CDT DTL Alanine Aminotransferase 159 (H) 7 - 55 U/L 03/19/2021 9:1 0 AM CDT DTL (ALT), S Bilirubin, Total, S 3.4 (H) <=1.2 mg/dL 03/19/2021 9:10 AM CDT DTL Specimen Anatomical Collection Method Collection Time Receive d Time (Source) Location / / Volume Laterality Blood (Blood, 03/19/2021 7:55 AM 03/19/20 21 8:43 Venous) CDT AM CDT Timothy Chung M.D. LAB BLOOD ADD-ON Performing Organization Address City/State/ZIP Code Phon e Number [facility] - [address] [place], [place] [address] [facility] [place] [address] [facility] [address] [facility] (ABNORMAL) CBC with Differential, Blood (03/19/2021 7:55 AM CDT) [facility] Method Time Signature Hemoglobin 10.9 (L) 13.2 - 03/19/2021 STMA 16.6 g/dL 8:08 AM CDT Hematocrit 32.7 (L) 38.3 - 03/19/2021 STMA 48.6 % 8:08 AM CDT Erythrocytes 3.79 (L) 4.35 - 03/19/2021 STMA 5.65 8:08 AM CDT x10(12)/L MCV 86.3 78.2 - 03/19/2021 STMA 97.9 fL 8:08 AM CDT RBC Distrib Width 19.0 (H) 11.8 - 03/19/2021 STMA 14.5 % 8:08 AM CDT Platelet Count 224 135 - 317 03/19/2021 STMA x10(9)/L 8:08 AM CDT Leukocytes 6.4 3.4 - 9.6 03/19/2021 STMA x10(9)/L 8:08 AM CDT Neutrophils 4.69 1.56 - 03/19/2021 STMA 6.45 9:08 AM CDT x10(9)/L Comment: Rechecked Lymphocytes 0.47 (L) 0.95 - 3.07 x10(9)/L 03/19/2021 9:08 A M CDT STMA Monocytes 0.89 (H) 0.26 - 0.81 x10(9)/L 03/19/2021 9:08 AM CDT STMA Eosinophils 0.36 0.03 - 0.48 x10(9)/L 03/19/2021 9:08 A M CDT STMA Basophils 0.03 0.01 - 0.08 x10(9)/L 03/19/2021 9:08 AM CDT STMA Specimen Anatomical Collection Method Collection Time Receive d Time (Source) Location / / Volume Laterality Blood (Blood, 03/19/2021 7:55 AM 03/19/20 21 8:04 Venous) CDT AM CDT Timothy Chung M.D. LAB BLOOD ADD-ON Performing Organization Address [facility] Phon e Number [facility] - [address] [place], [place] [address] [place] [address] [facility] 200 [facility] Type and Screen (with reflex Antibody ID) (03/19/2021 7:55 AM CDT) [facility] [employer] Method Time Signature ABORh A Pos Not 03/19/2021 STRM applicable 8:26 AM CDT Antibody Negative Negative 03/19/2021 STRM Screen 8:42 AM CDT Type & Screen 03/22/2021 03/19/2021 STRM Expiration 23:59 8:26 AM CDT Testing Conor DEFAULT 03/19/2021 STRM Location 8:07 AM CDT Specimen Anatomical Collection Method Collection Time Receive d Time (Source) Location / / Volume Laterality Blood (Blood, 03/19/2021 7:55 AM 03/19/20 8:07 Venous) CDT AM CDT Savannah Leyva M.D. LAB BLOOD BANK TEST ORDERABL ES Performing Organization Address [facility] Phon e Number [facility] - [address] [place], [place] [address] [facility] [place] [address] [facility]ly [facility]-[address] Bacteria / Brigid Culture, Blood #1 (03/19/2021 7:34 AM CDT) [facility] [employer] Method Time Signature Bacteria/Jane No growth 03/24/2021 DTL da Culture, after 5 9:02 AM CDT Blood days of incubation. Specimen (Source) Anatomical Collection Method Collection Time Re ceived Time Location / / Volume Laterality Blood (Blood, 03/19/2021 7:34 03/19/2021 8:15 Peripheral Draw) AM CDT AM CDT Comment: Specimen Source Site: Blood Christopher A Sheldon M.D. LAB MICROBIOLOGY - GENERAL O RDERABLES Performing Organization Address City/State/ZIP Code Phon e Number [facility] - [address] [place], [place] [address] [facility] [place] [address] [facility] [address] Interpretation of Outside CT Abdomen and or [...] distal aspect of the metallic biliary stent ( alissa 4 image 34). The metallic biliary [...] in the pancre atic uncinate process mass. Savannah WONG CT PROCEDURES SARS Coronavirus 2, RNA, Rapid POC, V Asymptomatic (03/19/2021 3:02 AM CDT) [facility] Method Time Signature SARS Undetected Undetected 03/19/2021 DTLR Coronavirus-2 3:24 AM CDT , RNA, Rapid POC, V Comment: Negative for SARS-CoV-2. The [employer] COVID-19 test is a molecular marli t for SARS-CoV-2, the virus that causes COVID- 19. A Negative result means that the [employer] COV ID-19 test did not detect SARS-CoV-2 virus in your sample. Cue COVID-19 test uses the [employer] System. This test has received Emergency Use Authorization (EUA) by the U.S. Food and Drug Administration (FDA) and is used per man ufacturer instructions. Performance characteristic s were verified by [facility] in a manner consistent with CLIA requirements. Fact sheets for this Emerg ency Use Authorization (EUA) can be found at the following links: Providers: https://Paomianba.com.Vitrue/documentation/prov iders.pdf Patients: https://Paomianba.com.com/documentation/monet ents.pdf SARS Coronavirus 2, Source Nasopharynx DEFAULT 03/19/2021 3:24 AM CDT DTLR Specimen Anatomical Collection Method Collection Time Receive d Time (Source) Location / / Volume Laterality Varies 03/19/2021 3:02 AM 3:02 (Nasopharynx) CDT AM CDT John Villa, Ch.B. LAB MICROBIOLOGY - GENERAL O RDERABLES Performing Organization Address City/State/ZIP Code Phon e Number PERFORMING LABS, [place] [address] INTERFACE Ref Interface [address] DTLR Performing Labs, [place] [address] documented in this encounter Visit Diagnoses Diagnosis Malignant Neoplasm Of Pancreas (HCC) - P rimary Abdominal Pain Obstruction Common Bile Duct Bacteremia Vomiting Immunodeficiency Due To Drugs (HCC) Pain Cancer Associated Radiation Therapy Personal History Cholangitis Acute Malnutrition Severe Protein-Calorie (HCC ) Hypoalbuminemia Anemia documented in this encounter Admitting Diagnoses Diagnosis Abdominal Pain documented in this encounter Administered Medications Inactive Administered Medications - up to 3 most recent administrations Medication Order MAR Action Action Date Dose Rate Site acetaminophen tablet 1,000 mg Given 03/19/2021 6:27 PM CDT 1,000 mg (TYLENOL) 1,000 mg, oral, 4 times daily, First dose on Mon03/19/21 at 0800 Given 03/19/2021 11:28 AM CDT 1,000 mg Given 03/19/2021 9:04 AM CDT 1,000 mg calcium carbonate chewable tablet 200 mg of calcium (TUMS) 200 mg of calcium, oral, Daily PRN, hear tburn, indigestion, Starting on Mon03/19/21 at 1908, Doses listed are in mg of elemental calcium. Take with food. 500 mg calcium carbonate contains 200 mg of elemental calcium . heparin flush 500 Units 500 Units, intra-catheter, Every 7 days, First dose on Mon03/21/21 at 0900, Implanted Vascular Access Device (IVAD) Arterial: When no infusion to maintain patency. heparin flush 500 Units Given 03/20/2021 2:12 PM CDT 500 Units Right Chest 500 Units, intra-catheter, During hospitalization, line care, Prior to discharge, Starting on 03/20/21 at 1404, For 1 dose, Implanted Vascular Access Device (IVAD) Arterial: When no infusion to maintain patency, prior to discharge. HYDROmorphone tablet 2 mg (DILAUDID) Given 03/20/2021 6:32 AM CDT 2 mg 2 mg, oral, Every 3 hours PRN, moderate pain or score 4-6 of 10, severe pain or score 7-10 of 10, Starting on Mon03/19/21 at 0405, Indications: Chronic Pain/Nonacute Pain Given 03/19/2021 9:35 PM CDT 2 mg Given 03/19/2021 6:26 PM CDT 2 mg levoFLOXacin tablet 750 mg (LEVAQUIN) Given 03/20/2021 12:23 PM CDT 750 mg 750 mg, oral, Daily before breakfast, First dose on Mon03/20/21 at 1045, For 5 days, Take 2 hours before or 6 hours after antacids containing magnesium or aluminum, sucralfate, didanosine, polymeric phosphate binders, or products containing calcium, iron, or zinc., Drug Monitoring Program: Pharmacist to adjust medication dosing based on indication and drug clearance factors., Indications: Intra-abdominal infection, community acquired pzhyti-erzonued-ouscnvb Given 03/20/2021 8:51 AM CDT 20,000 Unit s of 20,000-63,000- 84,[address] lipase capsule 20,000 Units of lipase (ZENPEP) 20,000 Units of lipase, oral, 3 times daily with meals, First dose on Mon03/19/21 at 0800, ZENPEP lipase 20,000/63,000/84,000 units were interchanged for lipase content 15,000 to < 25,000 units oral cap/tab Do NOT crush or chew. Capsule may be opened and the contents taken without crushing or chewing. Given 03/19/2021 6:28 PM CDT 20,000 Units of lipase melatonin tablet 3 mg 3 mg, oral, Bedtime PRN, sleep, Starting on Mon03/19/21 at 1908 metroNIDAZOLE tablet 500 mg (FLAGYL) Given 03/20/2021 12:23 PM CDT 500 mg 500 mg, oral, 3 times daily, First dose on Mon03/20/21 at 1045, For 5 days, Indications: Intra-abdominal infection, community acquired pantoprazole DR tablet 40 mg (PROTONIX) Given 03/20/2021 6:29 AM CDT 40 mg 40 mg, oral, Daily before breakfast, First dose on Mon03/19/21 at 0700, For 198 days, Swallow whole. Do NOT crush, chew, or split tablet. Given 03/19/2021 6:00 AM CDT 40 mg piperacillin-tazobactam in dextrose New Bag 03/20/2021 8:53 AM CDT 3.375 g 100 mL/hr (iso-osm) IVPB 3.375 g (ZOSYN) 3.375 g, intravenous, at 100 mL/hr, Administer over 0.5 Hours, Every 6 hours, First dose on Mon03/19/21 at 0500, Please give to patient after blood cultures are drawn, Drug Monitoring Program: Pharmacist to adjust medication dosing based on indication and drug clearance factors., Indications: Intra-abdominal infection, community acquired New Bag 03/20/2021 2:44 AM CDT 3.375 g 100 mL/hr New Bag 03/19/2021 8:07 PM CDT 3.375 g 100 mL/hr polyethylene glycol powder packet 17 g Given 03/20/2021 8:53 AM CDT 17 g (MIRALAX) 17 g, oral, Daily, First dose on Mon03/19/21 at 0900, Dissolve in 240 mLs (8 ounces) of water prior to giving. Avoid mixing with starch-based thickened liquids. Given 03/19/2021 9:05 AM CDT 17 g sennosides-docusate sodium 8.6-50 mg per Given 03/20/2021 8: 51 AM CDT 3 tablets tablet 3 tablet (SENOKOT-S) 3 tablet, oral, Daily, First dose on Mon03/19/21 at 0900 Given 03/19/2021 9:04 AM CDT 3 tablets sodium chloride 0.9 % injection 3 mL Given 03/20/2021 8:53 AM CDT 3 mL 3 mL, intravenous, Every 12 hours scheduled, First dose on Mon03/19/21 at 0900, Peripheral Intravenous Catheter and Rapid Infusion Catheter, when no infusion to maintain patency Given 03/19/2021 8:06 PM CDT 3 mL Given 03/19/2021 9:10 AM CDT 3 mL documented in this encounter Active and Recently Administered Medications Times are shown in CDT. Scheduled Medication Order 03/18/2021 03/19/2021 03/20/2021 acetaminophen tablet 1,000 mg (TYLENOL) 0904 (Given - Provider: Suni Roberts R.N.)1128 (Given - Provider: Suni Roberts R.N.)1827 (Given - Provider: Jess Elkins R.N.)2012 (Not Given - Provider: Jess Elkins R.N. - Reason: Patient/family refused) 0852 (Not Given - Provider: Benjamin Ruiz R.N. - Reason: Patient/family refused)1223 (Not Given - Provider: Benjamin Ruiz R.N. - Reason: Patient/family refused) 1,000 mg, oral, 4 times daily, First dose on Mon03/19/21 at 0800 heparin flush 500 Units 500 Units, intra-catheter, Every 7 days, First dose on Mon03/21/21 at 0900, Implanted Vascular Access Device (IVAD) Arterial: When no infusion to maintain patency. levoFLOXacin tablet 750 mg (LEVAQUIN) 1223 (Given - Provider: Benjamin Ruiz RRiazNRiaz) 750 mg, oral, Daily before breakfast, Fi rst dose on Mon03/20/21 at 1045, For 5 days, Take 2 hours before or 6 hours after antacids containing magnesium or aluminum, sucralfate, didanosine, polymeric donato sphate binders, or products containing c alcium, iron, or zinc., Drug Monitoring Program: Pharmacist to adjust medication dosing based on indication and drug clearance factors., Indications: Intra-abdominal infection, community acquired xgdvlo-hobhfnbo-fgdutsl 20,000-63,000- 8 4,[address] capsule 20,000 Units of lipase (ZENPEP) 0905 (Not Given - Provider: Suni Roberts R.N. - Reason: NPO)1128 (Not Given - Provider: Suni Roberts R.N. - Reason: NPO)1828 (Given - Provider: Jess Elkins R.N.) 0851 (Given - Provider: Benjamin Ruiz R.N.)1223 (Not Given - Provider: Benjamin Ruiz R.N. - Reason: Order parameters not met) 20,000 Units of lipase, oral, 3 times da elvie with meals, First dose on Mon03/19/21 at 0800, ZENPEP lipase 20,000/63,000/84,000 units were interchanged for lipase content 15,000 to < 25,000 units oral c ap/tab Do NOT crush or chew. Capsule may be opened and the contents taken without crushing or chewing. metroNIDAZOLE tablet 500 mg (FLAGYL) 1223 (Given - Provider: Benjamin Ruiz R.N.) 500 mg, oral, 3 times daily, First dose on Mon03/20/21 at 1045, For 5 days, Indications: Intra-abdominal infection, community acquired pantoprazole DR tablet 40 mg (PROTONIX) 0600 (Given - Provider: Thais Balderas R.N.) 0629 (Given - Provider: Jackie Kamara RMariajose) 40 mg, oral, Daily before breakfast, Fir st dose on Mon03/19/21 at 0700, For 198 days, Swallow whole. Do NOT crush, chew, or split tablet. piperacillin-tazobactam in dextrose (iso-osm) IVPB 3.375 g ( ZOSYN) (CANCELED) 0500 (Not Given - Provider: Suni Roberts R.N. - Reason: Other - Comment: Cultures not drawn)0844 (New Bag - Provider: Suni Roberts R.N.)1444 (New Bag - Provider: Suni Roberts R.N.)2006 (New Bag - Provider: Jess Elkins R.N.) 0244 (New Bag - Provider: Jackie guidry R.N.)0853 (New Bag - Provider: Max F Joseph, R.N.) 3.375 g, intravenous, at 100 mL/hr, Admi nister over 0.5 Hours, Every 6 hours, First dose on Mon03/19/21 at 0500, Please give to patient after blood cultures are drawn, Drug Monitoring Program: Pharmacist to adjust medication dosing based on in dication and drug clearance factors., Indications: Intra-abdominal infection, community acquired polyethylene glycol powder packet 17 g (MIRALAX) 0905 (Given - Provider: Suni Roberts R.N.) 0853 (Given - Provider: Benjamin Ruiz R.N.) 17 g, oral, Daily, First dose on 03/19 at 0900, Dissolve in 240 mLs (8 ounces) of water prior to giving. Avoid mixing with starch-based thickened liquids. sennosides-docusate sodium 8.6-50 mg per tablet 3 tablet (SE NOKOT-S) 0904 (Given - Provider: Suni Roberts R.N.) 0851 (Given - Provider: Benjamin Ruiz R.N.) 3 tablet, oral, Daily, First dose on Mon03/19/21 at 0900 sodium chloride 0.9 % injection 3 mL 091 0 (Given - Provider: Suni Roberts R.N.)2005 (Given - Provider: Jess Elkins R.N.) 0853 (Given - Provider: Benjamin Ruiz R.N.) 3 mL, intravenous, Every 12 hours schedu led, First dose on Mon03/19/21 at 0900, Peripheral Intravenous Catheter and Rapid Infusion Catheter, when no infusion to maintain patency PRN Medication Order 03/18/2021 03/19/2021 03/20/2021 calcium carbonate chewable tablet 200 mg of calcium (TUMS) 200 mg of calcium, oral, Daily PRN, hear tburn, indigestion, Starting on Mon03/19/21 at 1908, Doses listed are in mg of elemental calcium. Take with food. 500 mg calcium carbonate contains 200 mg of elemental calcium. fentaNYL injection 25 mcg (SUBLIMAZE) 25 mcg, intravenous, Every 2 min PRN, mo derate pain or score 4-6 of 10, severe pain or score 7-10 of 10, Starting on Mon03/19/21 at 1735, PACU (only), Up to maximum total dose of 200 mcg heparin flush 500 Units (COMPLETED) 1412 (Given - Provider: Lizette Jacques RMariajose - Comment: deaccbam) 500 Units, intra-catheter, During hospit alization, line care, Prior to discharge, Starting on Mon03/20/21 at 1404, For 1 dose, Implanted Vascular Access Device (IVAD) Arterial: When no infusion to maintain patency, prior to discharge. HYDROmorphone tablet 2 mg (DILAUDID) 042 9 (Given - Provider: Thais Balderas R.N.)1826 (Given - Provider: Jess Elkins R.N.)2135 (Given - Provider: Jess Elkins R.N.) 0632 (Given - Provider: Jackie Kamara RMariajose) 2 mg, oral, Every 3 hours PRN, moderate pain or score 4-6 of 10, severe pain or score 7-10 of 10, Starting on Mon03/19/21 at 0405, Indications: Chronic Pain/Nonacute Pain LORazepam tablet 0.5 mg (ATIVAN) 0.5 mg, oral, 2 times daily PRN, anxiety, Starting on Mon03/19/21 at 0406 melatonin tablet 3 mg 3 mg, oral, Bedtime PRN, sleep, Starting on Mon03/19/21 at 1908 ondansetron tablet 8 mg (ZOFRAN) 8 mg, oral, Every 8 hours PRN, nausea, v omiting, Starting on Mon03/19/21 at 0407, For 313 days sodium chloride 0.9 % injection 10 mL 10 mL, intravenous, As needed, line care , Starting on Mon03/19/21 at 0409, Peripheral Intravenous Catheter and Rapid Infusion Catheter, prior to blood sampling, post blood transfusion or post blood sampling sodium chloride 0.9 % injection 3 mL 3 mL, intravenous, As needed, line care, Starting on Mon03/19/21 at 0409, Prior to and following infusion and between multiple consecutive infusions: sodium chloride 0.9 % injection documented in this encounter Additional Health Concerns Infection Onset Date Last Indicated Resolved Time COVID19 Pending 03/19/2021 03/19/2021 03/19/2021 3:24 AM CDT documented as of this encounter Care Teams Menagerie Superintendent Relationship Specialty Start Date End Date Elsewhere, Pcp PCP - General Family Medicine 08/12/20 documented as of this encounter
--- OUTSIDE RECORDS SUMMARY | 2022-06-18 16:11 | XMS_ITS | Encounter Summary ---
:1965 Author Organization [facility] Address [address] [place] [id number] Care Team Providers Name Role Phone Elsewhere, Pcp Primary Care Provider Unavailable Reason for Referral Outpatient (Routine) - Closed Specialty Diagnoses / Procedures Referred By Contact Refer red To Contact Palliative Medicine Jesse Kerns M.D . [facility] [address] [place] [phone] Referral ID Status Reason Start Date Expiration Date Visits Requ ested Visits Authorized [id number] Closed 04/01/2021 04/01/2022 1 1 Reason for Visit Outpatient (Routine) - Closed Specialty Diagnoses / Procedures Referred By Contact Refer red To Contact [facility]iative [facility] [address] [place] [phone] Referral ID Status Reason Start Date Expiration Date Visits Requ ested Visits Authorized [id number] Closed 02/11/2021 02/11/2022 1 1 Encounter Details Date Type Department Care Team Description 03/29/2021 Telemedicine Department of Remy Noyola APRN, C.N.P. [address] [place] [phone] Pain Cancer Associated (Primary Dx); Palliative Care in Jesse Kerns M.D. [address] [place] [address] Anxiety Generalized Disorder; [place], [place] Malignant Neoplasm Of Pancre as (HCC); [address] [facility] Malnutrition Severe Protein- Calorie (HCC); [place], [place] Asthenia; [phone] Palliative Care [phone] Social History Tobacco Use Types Packs/Day Years [...] How often do you attend jainism or yazidi services? 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 - 03/29/2021 9:30 AM CDT SUBJECTIVE COORDINATING TEAM: Oncology COORDINATING PALLIATIVE CARE PROVIDER Jesse Kerns M.D. CHIEF COMPLAINT / REASON FOR CONSULT Adam Campbell is a 55 y.o. male with a diagnosis of locally advanced pancreatic adenocarcinomawho presents for evaluation of non-pain symptoms, pain and psychosocial support. HISTORY OF PRESENT ILLNESS The following portions of the patient's history were reviewed and updated as appropriate: allergies,current medications, family history, medical history, social history, surgical history and problem list. NOTE: Visit conducted via [facility] Tout Video Platform Persons Present: Patient/ Shaniqua Interval History: Mr. 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 He did undergo stent exchange with a continuation of parenteral antibiotics during admission transitioning to oral levofloxacin and metronidazole which was ultimately completed on the 25 of March. He generally is feeling better today particularly after discontinuing his antibiotics which were causing generalized gastrointestinal upset. He also noted the new development of cold hands and feet which he says began after the antibiotic were initiated. There is no pain, no burning, no tingling but simply a feeling that his hands or feet were plunged into ice water. No impairment in his fine motor functioning. He continues to have intermittent epigastric right and left upper quadrant discomfort, aching sensation, does note gas bloating as well. He is taking MiraLax daily denies any constipation. For his abdominal pain he is utilizing hydromorphone 2-4 mg by 3 times daily to good effect without adverse effects on his sensorium. He takes these medications to help him remain more active which hasbeen helpful. He is using Creon typically 1-2 tablets before meals. He is not using with this snacks at the present time. He does note intermittent difficulty with sleep maintenance. He typically takes trazodone 50 mg at bedtime but sometimes will wake up, feeling anxious, without physical symptom burden. To cope with this he often will wake up his and talked through some of his emotions, deep breathe. He will also engage in some distraction by watching TV. He does have a background level of anxiety particular since his diagnosis in utilizes 0.5 mg of lorazepam twice daily without cognitive side effects or adverse effects on his function. No current nausea, no vomiting, shortness of breath. SOCIAL HISTORY: Social History Socioeconomic History ??? Marital status: Spouse name: Shaniqua ??? Number of children: 2 ??? Years of education: Not on file ??? Highest education level: 12th grade Occupational History ??? 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 Smoking status: Never Smoker ??? Smokeless tobacco: Never Used Vaping Use ??? Vaping Use: never used Substance and Sexual Activity ??? Alcohol use: Never ??? Drug use: Never ??? Sexual activity: Not Currently Partners: Female control/protection: Vasectomy Other Topics Concern ??? Not on file Social History Narrative ??? Not on file Social Determinants of Health Financial Resource Strain: [...] with Friends and Family: Never ??? Attends Caodaism Services: Never ??? Active Member of Clubs or Organizations: No ??? Attends Club or Organization Meetings: Never ??? Marital Status: Intimate Partner Violence: ??? Fear of Current or Ex-Partner: ??? Emotionally Abused: ??? Physically Abused: ??? Sexually Abused: Spiritual Assessment: No spiritual concerns identified REVIEW OF SYSTEMS As per HPI; otherwise non-contributory to current encounter. Palliative Functional Assessment 70%-Reduced ambulation, Unable to do normal job/work with significant evidence of disease, Full self-care, Normal or reduced intake, Full level of consciousness OBJECTIVE PHYSICAL EXAM Via Video General: No signs of distress ENT: Speaking in full sentences; symmetric facial muscles Eyes: Conjunctiva clear Lungs: Non-labored breathing pattern. Musculoskeletal: Able to move all extremities without pain Psychiatric: Oriented X3, intact recent and remote memory, judgment and insight, congruent mood and affect. ASSESSMENT / PLAN #1 Pain Cancer Associated #2 Anxiety Generalized Disorder #3 Malignant Neoplasm Of Pancreas (HCC) #4 Malnutrition Severe Protein-Calorie (HCC) #5 Asthenia #6 Palliative Care Assessment: At this point Mr. Campbell is improving after his recent admission for cholangitis in the setting of anobstructed biliary stent. His complete is antimicrobials and is hopeful that some of the feeling in his hands and feet that developed on and microbial is well improved. Will need to monitor this needs to contact us if this gets worse or does not improve over the next 2 weeks. From the standpoint of his mood he feels currently well preserved with the use of lorazepam as this appears to be predominantly anxiety driven. I do think continued monitoring of his mood with the potential to introduce more traditional antidepressant may be of optimal utility. In the meantime will ref ill his lorazepam today. Will continue to use the trazodone at bedtime. We talked about other adaptive coping skills including action oriented adaptive coping skills, reframing, distraction, exercise. The standpoint of cancer associated pain will continue with the hydromorphone as needed. I did instruct him on more optimal utilization of the Creon for meals as well as starting to use this for snacksas well. He will trial this over the next 2 weeks. Follow-up Plan: Next Follow-up Visit: 04/27 via in person Opioid Summary ??? Opioid Need: This patient has a condition that necessitates treatment with an opioid for longer than 7 days. Additionally, a non-opioid alternative was not appropriate or adequate to manage patient???s pain. ??? [place] STAINED GLASS JOINER Review: We have reviewed the patient's record in the [place] prescription monitoring program. ??? Opioid Toxicity Review: We have reviewed the risks of opioid therapy and completed an assessmentof toxicities. ??? Opioid Aberrant Use Concerns: None ??? Current Opioid Regimen: Hydromorphone 2-4 mg 3-4 times daily as needed ??? Partial Fill: We have informed patient/family that they have the option to fill any schedule II medication for a lesser amount than prescribed. ??? Opioid Agreement: We have entered into an opioid agreement with the patient regarding universal prescribing precautions and safety practices. 2. Patient???s Illness Understanding/Prognostic Awareness: Understands that he has a disease that cannot be resected from a surgical perspective in that chemotherapy is designed to shrink the tumor. He is still struggling with understanding why this cannot be resected. 3. Hopes and Worries: Hopeful that he will have a period of some sort of remission, improve his functional status and be able to do more activities with his family. PATIENT EDUCATION Ready to learn, no apparent learning barriers were identified; learning preferences include listening. Explained diagnosis and treatment plan; patient expressed understanding of the content. Total time spent was 40 minutes, with >50% spent on counseling and coordination of care, including Instructions for management (treatment) and/or follow-up, Importance of compliance with the chosen management, Risk factor reduction and Reviewing information with other physicians to accommodate the needs of the patient. Consult conducted via real-time audio/video technology by Jesse Kerns M.D. in [facility] to the patient at home. This Video Visit was performed during the COVID-19 pandemic Jesse Kerns M.D. documented in this encounter Plan of Treatment Upcoming Encounters Date Type Specialty Care Team Description 06/22/2022 Lab Laboratory Medicine Maria Del Rosario Gomez AP RN, C.N.P., M.S. [address] [place] [phone] (Wo rk) 06/22/2022 Infusion Oncology Nem[place]Maria Del Rosario pierre APRN, C.N .P., M.S. [address] [place] [phone] (Wo rk) 06/29/2022 Lab Laboratory Medicine NemahaMaria Del Rosario pierre AP RN, C.N.P., M.S. [address] [place] [address] [phone] (Wo rk) 06/29/2022 Infusion Oncology Maria Del Rosario Gomez APRN, C.N .P., M.S. [address] [place] [address] [phone] (Wo rk) Scheduled Referrals Name Type Priority Associated Order Schedule Diagnoses Palliative Care Outpatient Referral Routine Expec sally: office visit 04/27/2021 (clinic) (Approximate), Expires: 04/01/2024 documented as of this encounter Visit Diagnoses Diagnosis Pain Cancer Associated - Primary Anxiety Generalized Disorder Malignant Neoplasm Of Pancreas (HCC) Malnutrition Severe Protein-Calorie (HCC ) Asthenia Palliative Care documented in this encounter Care Teams Quality Control Associate Relationship Specialty Start Date End Date Elsewhere, Pcp PCP - General Family Medicine 08/12/20 documented as of this encounter
--- OUTSIDE RECORDS SUMMARY | 2022-06-18 16:11 | XMS_ITS | Encounter Summary ---
:1965 Author Organization [facility] Address [address] [place] [address] Care Team Providers Name Role Phone Elsewhere, Pcp Primary Care Provider Unavailable Encounter Details Date Type Department Care Team Description 03/18/2021 Clinical Communication Department of Danelle Arevalo Palliative Care in [place], [place] [address] [facility] [address] [place] [phone] Social History Tobacco Use Types Packs/Day Years [...] How often do you attend religious or holiness services? 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 - 03/18/2021 5:27 PM CDT Mr. Campbell called the Palliative Sales Marketing this evening to make the Palliative and Oncology teams awarethat he is on his way to the ED in [place], [place]. He is having very dark urine, shortness of breathand some increased abdominal pain. He wanted to make the teams aware that he was going and will follow up after his ED visit. It is unknown at this time if he will be hospitalized locally or potentially transferred. documented in this encounter Plan of Treatment Upcoming Encounters Date Type Specialty Care Team Description 06/22/2022 Lab Laboratory Medicine Maria Del Rosario Gomez AP RN, C.N.P., M.S. [address] [place] [address] [phone] (Mj godoy) 06/22/2022 Infusion Oncology Maria Del Rosario Gomez APRN, C.N .P., M.S. [address] [place] [address] [phone] (Mj godoy) 06/29/2022 Lab Laboratory Medicine Maria Del Rosario Gomez AP RN, C.N.P., M.S. [address] [place] [address] [phone] (Mj godoy) 06/29/2022 Infusion Oncology Maria Del Rosario Gomez APRN, C.N .P., M.S. [address] [place] [address] [phone] (Mj godoy) documented as of this encounter Visit Diagnoses Not on filedocumented in this encounter Care Teams Ride Assembly Supervisor Relationship Specialty Start Date End Date Elsewhere, Pcp PCP - General Family Medicine 08/12/20 documented as of this encounter
--- OUTSIDE RECORDS SUMMARY | 2022-06-18 16:11 | XMS_ITS | Encounter Summary ---
:1965 Author Organization [facility] Address [address] [place] [address] Care Team Providers Name Role Phone Elsewhere, Pcp Primary Care Provider Unavailable Reason for Visit Reason Comments COVID Inquiry Encounter Details Date Type Department Care Team Description 04/28/2021 Clinical Communication Central Appointment JeanedLEONOR rousseau Inquiry Office in [address] [phone] Social History Tobacco Use Types Packs/Day Years [...] How often do you attend restorationism or cheondoism services? Never 01/15/2021 Do you [...] at Date Recorded Male 08/18/2021 2:55 PM [employer]AS[employer]ER [employer] documented as of this encounter Miscellaneous Notes Telephone Encounter - Margarita Shipley - 04/28/2021 2:34 PM CDT What is the purpose of the call?: Requesting Testing Only Request Testing In the past 14 days are any of the following symptoms new to you and not related to an existing health condition?: No symptoms noted In the past 14 days have you had close contact* with a person who has a LABORATORY CONFIRMED case ofCOVID-19?: Yes exposure noted. [place] patient, instruct to quarantine, testing indicated (End Screening) Testing Recommendation Endpoint Is testing recommended? : Recommended to test Plan: Endpoint recommendation: Testing indicated, advised to be swabbed for COVID-19 Only , sent to [facility]: COVID testing is being done within the Primary Care department of each clinic. An appointment is needed for testing. Call [phone] Mon, Wed, Th, Fri 8a-6p; 8a-730p; Sat/Sun 9a-2p to schedule an appointment time. Scheduling staff will provide instructions on location and check in for your appointment. and Please avoid using public transportation per CDC recommendation. If you do not have personal transportation please self-quarantine until a personal transportation option is available. *Reminder if sending patient for testing in [facility] or [facility], route encounter to the correct testing pool. documented in this encounter Plan of Treatment Upcoming Encounters Date Type Specialty Care Team Description 06/22/2022 Lab Laboratory Medicine Maria Del Rosario Gomez AP RN, C.N.P., M.S. 200 [place], [place] [phone] (Mj godoy) 06/22/2022 Infusion Oncology Maria Del Rosario Gomez APRN, C.N .P., M.S. [address] [place] [address] [phone] (Mj godoy) 06/29/2022 Lab Laboratory Medicine Maria Del Rosario Gomez AP RN, C.N.P., M.S. [address] [place] [address] [phone] (Mj godoy) 06/29/2022 Infusion Oncology Maria Del Rosario Gomez APRN, C.N .P., M.S. [address] [place], [place] [phone] (Wo rk) documented as of this encounter Visit Diagnoses Not on filedocumented in this encounter Care Teams Converter Operator Relationship Specialty Start Date End Date Elsewhere, Pcp PCP - General Family Medicine 08/12/20 documented as of this encounter
--- OUTSIDE RECORDS SUMMARY | 2022-06-18 16:11 | XMS_ITS | Encounter Summary ---
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 [address] [place] [address] [phone] (Wo rk) 06/22/2022 Infusion Oncology Maria Del Rosario Gomez APRN, C.N .P., M.S. [address] [place] [address] [phone] (Wo rk) 06/29/2022 Lab Laboratory Medicine Maria Del Rosario Gomez AP RN, C.N.P., M.S. [address] [place] [address] [phone] (Wo rk) 06/29/2022 Infusion Oncology Maria Del Rosario Gomez APRN, C.N .P., M.S. [address] [place] [address] [phone] (Wo rk) documented as of this encounter Procedures Procedure Name Priority Date/Time Associated Comments Diagnosis GLUCOSE, FASTING, S/P Routine 04/27/2021 1:25 PM Malignant Siva plasm Results for this CDT Of Pancreas (HCC) procedure are in the results section. CARBOHYDRATE AG 19-9 Routine 04/27/2021 1:24 PM Malignant Neop lasm Results for this (CA 19-9), S CDT Of Pancreas (HCC) procedure are in the results section. CBC WITH DIFFERENTIAL, Routine 04/27/2021 1:24 PM Malignant Ne oplasm Results for this B CDT Of Pancreas (HCC) procedure are in the results section. COMPREHENSIVE Routine 04/27/2021 1:24 PM Malignant Neoplasm Re sults for this METABOLIC PANEL, S/P CDT Of Pancreas (HCC) pr ocedure are in the results section. documented in this encounter Results Glucose, Fasting (04/27/2021 1:25 PM CDT) P athologist Signature Glucose, P 85 70 - 100 04/27/2021 DTL mg/dL 2:18 PM CDT Last Intake 5 hr 04/27/2021 DTL 2:00 PM CDT Specimen Anatomical Collection Method Collection Time Receive d Time (Source) Location / / Volume Laterality Blood (Blood, 04/27/2021 1:25 PM 04/27/20 2:00 Venous) CDT PM CDT Deborah RussoSRiaz LAB BLOOD NON ADD-ON Performing Organization Address City/State/ZIP Code Phon e Number [facility] - [address] [place], [place] [address] [facility] [place] [address] [facility] 200 [facility] (ABNORMAL) Comprehensive Metabolic Panel (04/27/2021 1:24 PM CDT) Analysis Performed At Patho logist Time Signature Potassium, S 3.9 3.6 - 5.2 04/27/2021 DTL mmol/L 5:42 PM CDT Sodium, S 141 135 - 145 04/27/2021 DTL mmol/L 5:42 PM CDT Chloride, S 107 98 - 107 04/27/2021 DTL mmol/L 5:42 PM CDT Bicarbonate, S 21 (L) 22 - 29 04/27/2021 DTL mmol/L 5:42 PM CDT Anion Gap 13 7 - 15 04/27/2021 DTL 5:42 PM CDT BUN (Blood Urea 12 8 - 24 04/27/2021 DTL Nitrogen), S mg/dL 5:42 PM CDT Creatinine 0.72 (L) 0.74 - 04/27/2021 DTL 1.35 mg/dL 5:42 PM CDT eGFR-Non >90 >=60 04/27/2021 DTL Black/ mL/min/BSA 5:42 PM CDT Latvian Comment: ----ADDITIONAL INFORMATION---- Estimated GFR calculated using the 2009 CKD_EPI creatinine equation. eGFR-Black/ >90 >=60 mL/min/BSA 2020 5:42 PM CDT DTL Comment: ----ADDITIONAL INFORMATION---- Estimated GFR calculated using the 2009 CKD_EPI creatinine equation. Calcium, Total, S 8.8 8.6 - 10.0 mg/dL 04/27/2021 5:42 PM CDT DTL Glucose, S CANCELED mg/dL 04/27/2021 2:00 PM CDT DTL Comment: Test not performed. See Fasting Glucose result. Result canceled by the ancillary. Protein, Total, S 6.6 6.3 - 7.9 g/dL 04/27/2021 5:42 P M CDT DTL Albumin, S 4.1 3.5 - 5.0 g/dL 04/27/2021 5:42 PM CDT D TL Aspartate Aminotransferase (AST), S 21 8 - 48 U/L 5:42 PM CDT DTL Alkaline Phosphatase, S 107 40 - 129 U/L 04/27/2021 5: 42 PM CDT DTL Alanine Aminotransferase (ALT), S 23 7 - 55 U/L 04/27 5:42 PM CDT DTL Bilirubin, Total, S 0.3 <=1.2 mg/dL 04/27/2021 5:42 PM CDT DTL Specimen Anatomical Collection Method Collection Time Receive d Time (Source) Location / / Volume Laterality Blood (Blood, 04/27/2021 1:24 PM 04/27/20 1:59 Venous) CDT PM CDT Deborah VillaBRiazS. LAB BLOOD ADD-ON Performing Organization Address City/State/ZIP Code Phon e Number [facility] - [address] [place] [phone] [facility] [place] [address] [facility] 200 [facility] (ABNORMAL) CBC with Differential, Blood (04/27/2021 1:24 PM CDT) [facility] gist Method Time Signature Hemoglobin 11.9 (L) 13.2 - 04/27/2021 DTL 16.6 g/dL 1:54 PM CDT Hematocrit 36.0 (L) 38.3 - 04/27/2021 DTL 48.6 % 1:54 PM CDT Erythrocytes 4.05 (L) 4.35 - 04/27/2021 DTL 5.65 1:54 PM CDT x10(12)/L MCV 88.9 78.2 - 04/27/2021 DTL 97.9 fL 1:54 PM CDT RBC Distrib Width 14.6 (H) 11.8 - 04/27/2021 DTL 14.5 % 1:54 PM CDT Platelet Count 172 135 - 317 04/27/2021 DTL x10(9)/L 1:54 PM CDT Leukocytes 5.5 3.4 - 9.6 04/27/2021 DTL x10(9)/L 1:54 PM CDT Neutrophils 4.16 1.56 - 04/27/2021 DTL 6.45 1:54 PM CDT x10(9)/L Lymphocytes 0.69 (L) 0.95 - 04/27/2021 DTL 3.07 1:54 PM CDT x10(9)/L Monocytes 0.49 0.26 - 04/27/2021 DTL 0.81 1:54 PM CDT x10(9)/L Eosinophils 0.14 0.03 - 04/27/2021 DTL 0.48 1:54 PM CDT x10(9)/L Basophils <0.03 0.01 - 04/27/2021 DTL 0.08 1:54 PM CDT x10(9)/L Specimen Anatomical Collection Method Collection Time Receive d Time (Source) Location / / Volume Laterality Blood (Blood, 04/27/2021 1:24 PM 04/27/20 21 1:43 Venous) CDT PM CDT Deborah VillaB.S. LAB BLOOD ADD-ON Performing Organization Address City/State/ZIP Code Phon e Number [facility] - [address] [place], [place] [address] [facility] [place] [address] [facility] 200 [facility] Carbohydrate Antigen 19-9 (CA 19-9) (04/27/2021 1:24 PM CDT) athologist Signature Carbohydrate Ag 10 <35 U/mL 04/28/2021 [facility] 19-9, S 9:24 AM CDT Comment: ----ADDITIONAL INFORMATION---- The testing method is an immunoenzymatic assay manufactured by [employer] and performed on the [employer] 800. ? Values obtained with different assay met hods or kits may be different and cannot be used inte rchangeably. ? Test results cannot be interpreted as ab solute evidence for the presence or absence of malignant disease. Specimen Anatomical Collection Method Collection Time Receive d Time (Source) Location / / Volume Laterality Blood (Blood, 04/27/2021 1:24 PM 04/28/20 8:24 Venous) CDT AM CDT Deborah RussoSRiaz LAB BLOOD ADD-ON Performing Organization Address City/State/ZIP Code Phon e Number [facility] [address] [place], [place] [address] [facility] [place] [address] Laboratory Medicine and Pathology [address] [place] documented in this encounter Visit Diagnoses Diagnosis Malignant Neoplasm Of Pancreas (HCC) - P rimary Bacteremia documented in this encounter Administered Medications Inactive Administered Medications - up to 3 most recent administrations Medication Order MAR Action Action Date Dose Rate Site heparin flush 500 Units Given 04/27/2021 1:29 PM CDT 500 Units 500 Units, intra-catheter, As needed, line care, Starting on Mon04/27/21 at 1320, When no infusion to maintain patency: For IVAD accessed, not in use, and/or prior to hospital discharge, flush every 7 days after 0.9% preservative-free NaCL flush. For IVAD NOT accessed or used, flush every 4 weeks after 0.9% preservative-free NaCL flush. sodium chloride 0.9 % injection 10 mL Given 04/27/2021 1:29 PM CDT 10 mL 10 mL, intra-catheter, As needed, line care, Starting on Mon04/27/21 at 1320, When IVAD Accessed and in Use: Flush prior to and following infusion, between multiple consecutive infusions, and prior to blood sampling. sodium chloride 0.9 % injection 20 mL Given 04/27/2021 1:29 PM CDT 20 mL 20 mL, intra-catheter, As needed, line care, Starting on Mon04/27/21 at 1320, When IVAD Accessed and in Use: Flush post blood transfusion or post blood sampling. documented in this encounter Care Teams Per Assessment Nurse Relationship Specialty Start Date End Date Elsewhere, Pcp PCP - General Family Medicine 08/12/20 documented as of this encounter
--- OUTSIDE RECORDS SUMMARY | 2022-06-18 16:11 | XMS_ITS | Encounter Summary ---
:1965 Author Organization [facility] Address [address] [place] [address] Care Team Providers Name Role Phone Elsewhere, Pcp Primary Care Provider Unavailable Reason for Visit Reason Comments Treatment Questions Encounter Details Date Type Department Care Team Description 04/22/2021 Clinical Communication Department of Aura Zheng Tr eatment [facility] [address] [place], [place] [address] [place] [phone] [place], [place] [phone] (Work) [phone] Social History Tobacco Use Types Packs/Day Years [...] How often do you attend voodoo or roman catholic services? 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 - 04/22/2021 3:10 PM CDT SUBJECTIVE CHIEF COMPLAINT / REASON FOR CALL Treatment Questions PLAN The following information was provided: I called Mr. Campbell. He last had his port flushed on March 20. He is next returning to clinic on April 27, in which he was planning on using his port for lab draw. He is wondering if this is OK to wait that long for flush. Explained we recommend port flush every 4-6 weeks. By having his port flushed onApril 27, this would be just before 6 weeks. I did offer to set up port flush sometime this week, which would be 5 weeks. He is from [place], and [facility]. I am unable to easily order port flush at their facility. Should he decide he would like to proceed with port flush this week, he will call and let me know, and I will call [facility] if I can send a treatment letter on his behalf. Information/Education: patient/caller able to teach back The following references were used: nursing clinical judgement documented in this encounter Plan of Treatment Upcoming Encounters Date Type Specialty Care Team Description 06/22/2022 Lab Laboratory Medicine Maria Del Rosario Gomez AP RN, C.N.P., M.S. [address] [place] [address] [phone] (Wo jayne) 06/22/2022 Infusion Oncology Maria Del Rosario Gomez APRN, C.N .P., M.S. [address] [place] [phone] (Wo rk) 06/29/2022 Lab Laboratory Medicine Maria Del Rosario Gomez AP RN, C.N.P., M.S. [address] [place] [phone] (Mj rk) 06/29/2022 Infusion Oncology Maria Del Rosario Gomez, GUERO, C.N .P., M.S. [address] [place], [place] [phone] (Mj rk) documented as of this encounter Visit Diagnoses Not on filedocumented in this encounter Care Teams Financial Services Consultant Relationship Specialty Start Date End Date Elsewhere, Pcp PCP - General Family Medicine 08/12/20 documented as of this encounter
--- OUTSIDE RECORDS SUMMARY | 2022-06-18 16:11 | XMS_ITS | Encounter Summary ---
:1965 Author Organization [facility] Address [address] [place] [phone] Care Team Providers Name Role Phone Elsewhere, Pcp Primary Care Provider Unavailable Reason for Visit Outpatient (Routine) - Closed Specialty Diagnoses / Procedures Referred By Contact Refer red To Contact Oncology Deborah Murray M.B.B.S . [facility] [address] [place] [phone] Referral ID Status Reason Start Date Expiration Date Visits Requ ested Visits Authorized [id number] Closed 02/19/2021 02/19/2022 1 1 Encounter Details Date Type Department Care Team Description 04/27/2021 Office Visit Department of Oncology Ruby Zarco Neoplasm Of in [place], Vladislav Pereira M.D. Pancreas (HCC) [place] [address] [facility] (Primary Dx) [address] [place] [phone] Social History Tobacco Use Types Packs/Day Years [...] How often do you attend holiness or sikh services? 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 - 04/27/2021 3:30 PM CDT SUBJECTIVE PRIMARY CARE PHYSICIAN ELSEWHERE, PCP LOCAL ONCOLOGIST No care steam table associate to display PRIMARY MALDEN ONCOLOGIST Deborah Murray M.B.B.S. Maria Del Rosario Gomez APRN C.N.P., M.S. CHIEF COMPLAINT / REASON FOR VISIT Adam Campbell is a 55 y.o. 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 Upon admission, patient underwent ERCP in which plastic biliary stent was exchanged for fully covered metal biliary stent with intraoperative findings biliary stricture at the common bile duct due to presumed tissue/tumor in growth. Patient was treated with IV antibiotics, and dismissed home with orals. His repeat imaging today is notable for new 4 mm right lower lobe nodule which is new, with stable/mildly decreased size of pulmonary nodules as compared to prior scans. Abdomen pelvis notable for 2.3 cm of hypodensity at the uncinate process of pancreas similar to prior to exam There is more prominent parenchymal enhancement at the neck of the pancreas that was concerning for involving necrotizing pancreatitis, slight increase in the amount of perisplenic fluid, similar finding of ill-defined 10 mm hypodense lesion in the liver. On discussion with patient, patient reports that he has been feeling the best in terms of energy that he has felt over the last 8 months. He is eating more frequent, as well as more in quantity and hasgained approximately 10 lb. Patient reports some abdominal pain after drinking soda, but otherwise has been tolerating his meals otherwise. Patient reports that he has neuropathy pain on his lower extremities, as well as some pain along his hips which is new for him. REVIEW OF SYSTEMS REVIEW OF SYSTEMS Per HPI OBJECTIVE BP 112/79 (BP Location: Right arm, Patient Position: Sitting) Pulse 87 Temp (!) 35.9 ??C (Tympanic) Resp 16 Ht 178 cm Wt 70.8 kg SpO2 99% BMI 22.35 kg/m?? PHYSICAL EXAM Physical Exam LABORATORY DATA Lab data reviewed. RADIOLOGICAL DATA Radiology data reviewed. ASSESSMENT / PLAN #1 Malignant Neoplasm Of Pancreas (HCC) Mr. Campbell is a 55-year-old male with locally advanced pancreatic cancer. Patient's repeat imaging results were review with Dr. Zarco, his CA 19/9 is currently pending. There was evidence of nonspecific findings in the CT chest that was not previously found, which we will opt for surveillance. We will obtain pancreatic cancer genetic panel today, and will have information for next up planningappropriate. For next neuropathic pain, will do dose trial of gabapentin and see his response at next follow-up visit. Plan to see him back in 3 months with repeat scans. Rest per attestation note by Dr. Zarco. PATIENT EDUCATION Ready to learn, no apparent learning barriers were identified; learning preferences include listening. Explained diagnosis and treatment plan; patient expressed understanding of the content. ADMINISTRATIVE BILLING Per Dr. Carolee Fan M.D. PGY-3 Internal Medicine Resident documented in this encounter Consult Notes Vladislav Zarco M.D. - 04/27/2021 3:30 PM CDT SUBJECTIVE PRIMARY CARE PHYSICIAN ELSEWHERE, PCP REQUESTING PROVIDER Deborah Murray M.B.B.S. [address] [place] [phone] LOCAL ONCOLOGIST No care steam table associate to display PRIMARY MALDEN ONCOLOGIST Deborah Murray M.B.Maria.S. Maria Del Rosario Gomez APRN, C.N.P., M.S. REASON FOR CONSULT Adam Campbell is a 55 y.o. male who presents for evaluation of locally advanced pancreatic cancer. He has been off chemotherapy after completing radiation earlier in the summer. He feels well feels like he has had a good weight in the good energy level. His main complaint is neuropathy which he n otices more when he is less active such as at bedtime etc.. Sometimes will have pain shoot down his legs especially after getting up initially. Oncology History Malignant Neoplasm Of Pancreas (HCC) [...] (01/25/2021 - 03/02/2021) Site: Pancreas Technique: 3D MAIL OFFICER Goal: Curative Planned Treatment Start Date: 01/25/2021 01/25/2021 - 03/01/2021 Chemotherapy Gemcitabine ( with Radiation ) Start Date: 01/25/2021 LABORATORY DATA Lab data reviewed. RADIOLOGICAL DATA Radiology data reviewed. ASSESSMENT / PLAN #1 Locally advanced pancreatic cancer The patient has no convincing evidence progression. There are some nonspecific pulmonary nodules which are minimally changed, his CA 19 9 is still pending. I do think it would be helpful to get some germline testing on him so will get a pancreatic cancer panel. Discussed with the patient the risks andbenefits and he wishes to proceed. 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 The patient was counseled this can make him tired for a few days. His takes very high dose ofNeurontin for her multiple sclerosis who is very familiar with this medication.. Otherwise will plan on seeing him back in 3 months PATIENT EDUCATION Ready to learn, no apparent learning barriers were identified; learning preferences include listening. Explained diagnosis and treatment plan; patient expressed understanding of the content. I have seen the patient and concur with the assessment, evaluation, and recommendations of Dr Maryjane Fan, as stated in this note. documented in this encounter Plan of Treatment Upcoming Encounters Date Type Specialty Care Team Description 06/22/2022 [facility]S. [address] [place] [phone] (Mj godoy) 06/22/2022 [facility] C.N .P., M.S. [address] [place] [phone] (Mj godoy) 06/29/2022 Lab [facility], C.N.P., M.S. [address] [place] [phone] (Mj godoy) 06/29/2022 Infusion [facility]cology [facility], C.N .P., M.S. [address] [place] [phone] (Mj godoy) documented as of this encounter Visit Diagnoses Diagnosis Malignant Neoplasm Of Pancreas (HCC) - P rimary documented in this encounter Care Teams Financial Reporting Director Relationship Specialty Start Date End Date Elsewhere, Pcp PCP - General Family Medicine 08/12/20 documented as of this encounter
--- OUTSIDE RECORDS SUMMARY | 2022-06-18 16:11 | XMS_ITS | Encounter Summary ---
:1965 Author Organization [facility] Address [address] [place] [address] Care Team Providers Name Role Phone Elsewhere, Pcp Primary Care Provider Unavailable Reason for Visit Auth/Cert Specialty Diagnoses / Procedures Referred By Contact Refer red To Contact Diagnoses Abdominal Pain Procedures DIR Referral ID Status Reason Start Date Expiration Date Visits Requ ested Visits Authorized [id number] 1 1 Encounter Details Date Type Department Care Team Description 03/19/2021 Anesthesia Event Division of Gastroenterology Raymond Wolfe, in [facility] SCRUB TECH, JEWEL HOLE DRILLER [address] [facility] [address] [place] [address] [place], [place] [phone] Anesthesia Record Procedure Summary Procedure Name Responsible Anesthesiologist Anesthesia Start Ti me Anesthesia Stop Time ERCP Raymond Wolfe, GUERO, JEWEL HOLE DRILLER 03/19/21 1644 07/0 06/01 1733 Events Date Time Event Comment 03/19/2021 1644 An Start Machine/Equipmen t Checked Infection Precautions Foll owed Procedure/Site Verified NPO Sta tus Verified Supine Standard ASA Mon itors Applied 1648 An Induction 1655 An Intubation 1657 Turnover to Proceduralist 1700 Proc Start 1727 Proc Fin 1727 Turnover to ANE Staff 1728 Airway Removal Criteria Met 1730 Extubation/Airway Removed 1730 an stop data 1733 An End I completed my h andoff to the receiving staff during [facility] we 1. Identified the patient 2. Ident ified the responsible provider 3. Revi ewed the pertinent medical history 4. Discussed the surgical course 5. Review ed intra-op anesthesia management and i ssues during anesthesia 6. Set expectati ons for post-procedure period 7. Allowe d opportunity for questions and ac knowledgement of understanding. Name Total fentanyl injection 50 mcg/mL 100 mcg lidocaine 2% (mg) injection 100 mg propofol 10 mg/mL 150 mg propofol 10 mg/mL infusion 164.88 mg succinylcholine 20 mg/mL injection 120 mg ondansetron 4 mg/2 mL injection 4 mg Lactated Ringers Free Drip 400 mL Agents No agents on file. Blood No blood administrations on file. Lines, Drains, and Airways Type Details Placement Removal Implanted Port Single 11/05/20; 1225; Permanent 11/05/20 1225 by Lumen (tunneled, implanted); Raymond Escobedo, R.N. Yes; Yes; Yes; Yes; Alcohol, Chlorhexidine (Preferred); Yes; Cap, Gloves, Gown, Large drape, Mask (Clinician), Mask (All others in room); N/A; Non-valved; Right; Chest; Power injectable; Securement dressing, Sutured; Dr. Wolf ETT Placement Date: 03/19/21; 03/19/[id number] by 03/19 by Placement Time: 1654 Raymond Wolfe, Nik Wolfe, (created via procedure SCRUB TECH, JEWEL HOLE DRILLER JESUS JACK A documentation); Mask Ventilation: Easy mask; Type: Standard ETT; Single Lumen Tube Size: 7 mm; Cuffed: Yes; Blade Size: Luz 2; Location: Oral; Grade View: Grade 1; Insertion Attempts: 1; Placement Verification: Bilateral breath sounds, Positive ETCO2, Symmetrical chest wall movement; Removal Date: 03/19/21; Removal Time: 1729 documented in this encounter Social History Tobacco [...] How often do you attend jew or latter-day services? 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 Responsible Provider: Raymond Wolfe APRN, CRNA Anesthesia Type: general ASA Status: 3 Anesthesia Type: general Last vitals Vitals Value Taken Time BP 125/82 03/19/21 1732 Temp Pulse 96 03/19/21 1733 Resp SpO2 100 % 03/19/21 1733 Vitals shown include unvalidated device data. Please [...] Hydration status: euvolemic Anesthesia Procedure Notes - Raymond Wolfe APRN, CRNA - 03/19/2021 4:59 PM CDTAssociated Order(s): Airway Airway Date/Time: 03/19/2021 4:55 PM Performed by: Raymond Wolfe APRN, CRNA Authorized by: Raymond Wolfe APRN, CRNA Patient location during procedure: OR / Procedure Area PROCEDURE DETAILS: Mask difficulty assessment: easy mask Final airway type: direct laryngoscopy, intubation Laryngeal Manipulation: no Final airway difficulty of direct laryngoscopy (DL): 0-easy Final best view of glottic structures - Cormack/Lehane Score: grade 1 ETT location: oral Adult blade type: Luz 2 Adult tube size: 7 Adult ETT distance at teeth/gum: 22 Oral tube type: standard ETT Cuffed: yes [...] event: no complications Anesthesia Preprocedure Evaluation - Raymond Wolfe APRN, CRNA - 03/19/2021 4:44 PM CDT Preprocedure Anesthesia & H&P Assessment Procedure Summary Anesthesia Start Date/Time: 03/19/21 1644 Scheduled providers: Veronica Mark APRN, CRNA Procedure: ERCP Location: Division of Gastroenterology in [place], [place] Pertinent components of the patient's history including current problem list, medical history, surgical history, family history, social history, medications and allergies were reviewed. Present illnessand pre-op diagnosis were confirmed. The planned surgery / procedure was verified with the patient /legal guardian. The patient's general health condition remains unchanged RELEVANT COMORBID CONDITIONS GI (+) Gastroesophageal Reflux Disease NOS ONC (+) Malignant Neoplasm Of Pancreas (HCC) Other (+) Immunodeficiency Due To Drugs (HCC) OBJECTIVE PHYSICAL EXAMINATION Airway (HEENT) Mallampati: I TM Distance: >3 FB Neck ROM: Full Mouth Opening: >3 cm Upper Lip Bite Test Class: I Cardiovascular Rhythm: Regular Rate: Normal Cardiovascular Assessment: cardiovascular normal Functional Capacity: >4 METS Pulmonary Pulmonary Assessment: Clear General / Constitutional Constitutional Assessment: Thin General State of Health:: healthy appearing and calm Neurological Neurologic Assessment:??alert and alert and oriented x 3 ASSESSMENT / PLAN ANESTHESIA PLAN ASA: 3 Anesthesia Plan: general Patient seen and allergies reviewed, anesthesia plan and risks discussed directly with patient /legal guardian or through an ramp and cargo supervisor. The use of blood products not discussed Approval to Proceed: approved for anesthesia documented in this encounter Plan of Treatment Upcoming Encounters Date Type Specialty Care Team Description 06/22/2022 Lab Laboratory Medicine Maria Del Rosario Gomez AP RN, C.N.P., M.S. [address] [place] [address] [phone] (Wo rk) 06/22/2022 Infusion Oncology Maria Del Rosario Gomez APRN, C.N .P., M.S. [address] [place] [address] [phone] (Wo rk) 06/29/2022 Lab Laboratory Medicine Maria Del Rosario Gomez AP RN, C.N.P., M.S. [address] [place] [address] [phone] (Wo rk) 06/29/2022 Infusion Oncology Maria Del Rosario Gomez APRN, C.N .P., M.S. [address] [place] [address] [phone] (Wo rk) documented as of this encounter Procedures Procedure Name Priority Date/Time Associated Comments Diagnosis LDA ANE ENDOTRACHEAL Routine 03/19/2021 4:55 PM R esults for this AIRWAY CDT procedure are i n the results section. documented in this encounter Results LDA ANE ENDOTRACHEAL AIRWAY (03/19/2021 4:55 PM CDT) Narrative Raymond Wolfe APRN, CRNA - 03/19/2021 4:55 PM CDT Raymond Wolfe APRN, CRNA ? 03/19/2021 ??4:59 PM Airway Date/Time: 03/19/2021 4:55 PM Performed by: Raymond Wolfe APRN, CRN A Authorized by: Raymond Wolfe APRN, CR NA Patient location during procedure: OR / Procedure Area PROCEDURE DETAILS: Mask difficulty assessment: easy mask Final airway type: direct laryngoscopy, intubation Laryngeal Manipulation: no ?? Final airway difficulty of direct laryng oscopy (DL): 0-easy Final best view of glottic structures - Cormack/Lehane Score: grade 1 ETT location: oral Adult blade type: Luz 2 Adult tube size: 7 Adult ETT distance at teeth/gum: 22 Oral tube type: standard ETT Cuffed: yes [...] outcome: successful ?? Airway event: no complications Raymond Wolfe APRN, CRNA ANESTHESIA ORDERABLES documented in this encounter Visit Diagnoses Not on filedocumented in this encounter Administered Medications Inactive Administered Medications - up to 3 most recent administrations Medication Order MAR Action Action Date Dose Rate Site fentaNYL injection (SUBLIMAZE) Given 03/19/2021 5:04 PM CDT 50 mcg intravenous, As needed, Starting on Mon03/19/21 at 1649, Anesthesia Intra-op Given 03/19/2021 4:49 PM CDT 50 mcg lactated ringers New Bag 03/19/2021 4:52 PM CDT intravenous, Continuous Infusion: Per Instructions PRN, Starting on Mon03/19/21 at 1652, Anesthesia Intra-op lidocaine (PF) (cardiac) injection Given 03/19/2021 4:52 PM CDT 100 mg intravenous, As needed, Starting on Mon03/19/21 at 1652, Anesthesia Intra-op ondansetron (PF) injection (ZOFRAN) Given 03/19/2021 5:04 PM CDT 4 mg intravenous, As needed, Starting on Mon03/19/21 at 1704, Anesthesia Intra-op propofol 10 mg/mL infusion Rate/Dose 03/19/2021 5:10 50 mcg/kg/min 1 9.59 (DIPRIVAN) Change PM CDT mL/hr intravenous, Continuous Infusion: Per Instructions PRN, Starting on 7/9/21 at 1653, Anesthesia Intra-op New Bag 03/19/2021 4:53 PM CDT 125 mcg/kg/min 48.975 mL/hr propofoL injection (DIPRIVAN) Given 03/19/2021 4:52 PM CDT 150 mg intravenous, As needed, Starting on Mon03/19/21 at 1652, Anesthesia Intra-op succinylcholine (PF) injection (ANECTINE ) Given 03/19/2021 4:52 PM CDT 120 mg intravenous, As needed, Starting on Mon03/19/21 at 1652, Anesthesia Intra-op documented in this encounter Care Teams Drywall Applicator Relationship Specialty Start Date End Date Elsewhere, Pcp PCP - General Family Medicine 08/12/20 documented as of this encounter
--- OUTSIDE RECORDS SUMMARY | 2022-06-18 16:11 | XMS_ITS | Encounter Summary ---
:1965 Author Organization [facility] Address [address] [place] [address] Care Team Providers Name Role Phone Elsewhere, Pcp Primary Care Provider Unavailable Reason for Referral MRI/CAT/PET Scan (Routine) - Closed Specialty Diagnoses / Procedures Referred By Contact Refer red To Contact Radiology Diagnoses Malignant Neoplasm Of Pancreas (HCC) Deborah Murray M.[facility] [place] [facility] Procedures CT Abdomen Pelvis with IV Contrast [place] CT ABD&PELVIS W CNTRST [address] [place] [address] Referral ID Status Reason Start Date Expiration Date Visits Requ ested Visits Authorized [id number] Closed 02/19/2021 02/19/2022 1 1 MRI/CAT/PET Scan (Routine) - Closed Specialty Diagnoses / Procedures Referred By Contact Refer red To Contact Radiology Diagnoses Malignant Neoplasm Of Pancreas (HCC) Deborah Murray M.B[facility] [place] [facility] Procedures CT Chest with IV Contrast VT CT THORAX W CNTRST [address] [place], [place] [phone] Referral ID Status Reason Start Date Expiration Date Visits Requ ested Visits Authorized [id number] Closed 02/19/2021 02/19/2022 1 1 Reason for Visit MRI/CAT/PET Scan (Routine) - Closed Specialty Diagnoses / Procedures Referred By Contact Refer red To Contact Radiology Diagnoses Malignant Neoplasm Of Pancreas (HCC) Deborah Murray M.B[facility] [place] [facility] Procedures CT Abdomen Pelvis with IV Contrast [place] CT ABD&PELVIS W CNTRST [address] [place] [phone] Referral ID Status Reason Start Date Expiration Date Visits Requ ested Visits Authorized [id number] Closed 02/19/2021 02/19/2022 1 1 Encounter Details Date Type Department Care Team Description 04/27/2021 Hospital Encounter Department of Deborah Murray Malignan t Neoplasm Of Radiology, [place] David.Maria.B[facility]. Pancreas (HCC) Building, in [address] [place] [address] [place] [phone] [place], [place] [phone] (Work) [phone] Social History Tobacco Use Types Packs/Day Years [...] How often do you attend sikhism or pentecostalism services? 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 Dissolve each 17 g dose in 240 mLs (8 ounces) of beverage. sennosides-docusate Take 3 tablets by 0 sodium (SENOKOT-S) mouth 2 (two) times 8.6-50 [...] the counter lidocaine cream for back pain LORazepam (Ativan) 0.5 Take 1 tablet (0.5 60 tablet 0 03/2910/24/2021 mg tablet mg total) by mouth 2 (two) times a day as needed for anxiety. traZODone (DESYREL) 50 Take 1-2 tablets 30 tablet 0 01/06/2022 mg tablet (50-100 mg total) by [...] TAKE 1-2 CAPSULES WITH SNACKS IF NEEDED gabapentin (NEURONTIN) Take 1 capsule (300 30 capsule 11 04/1106/22/2021 300 mg capsule mg total) by mouth at bedtime. HYDROmorphone Take 0.5-1 tablets 90 tablet 0 03/29/2021 (DILAUDID) 4 mg (2-4 mg total) by tabletIndications: mouth every 3 Chronic Pain/Nonacute (three) hours as Pain needed for pain Indication: Chronic Pain/Nonacute Pain. 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 documented as of this encounter Nursing Notes Kanwal West R.N. - 04/27/2021 11:30 AM CDT IVAD Contrast Injection Assessment Details: What type of IVAD? Power Port If power???What identifiers were used (2 needed or Rad approval)? ID Card, Macdonald Chain, or [email or web address], [place] or Outside medical record (Date 11/05/20) and 3 Bumps on Sebastian Shape Septum (medical record wasop report stating the placement of a power port) Tip placement verified? Yes Location: [facility] Date (if applicable): November 05, 2020 Blood return verified? Yes VAPP Orders (Nurse to use Saline or Heparin post scan): saline and heparin Is patient staying accessed after scan? Yes documented in this encounter Plan of Treatment Upcoming Encounters Date Type Specialty Care Team Description 06/22/2022 Lab Laboratory Medicine Maria Del Rosario Gomez AP RN, C.N.P., M.S. [address] [place] [phone] (Mj godoy) 06/22/2022 Infusion Oncology Maria Del Rosario Gomez APRN, C.N .P., M.S. [address] [place] [phone] (Mj godoy) 06/29/2022 Lab Laboratory Medicine Yary GomezAD Diaz RN, C.N.P., M.S. [address] [place], [place] [phone] (Mj godoy) 06/29/2022 Infusion Oncology Patricia Maria Del Rosario Sanchez APRN, C.N .P., M.S. [address] [place], [place] [phone] (Mj godoy) documented as of this encounter Procedures Procedure Name Priority Date/Time Associated Comments Diagnosis CT ABDOMEN PELVIS RAD - Routine 04/27/2021 12:42 Malignant Resul ts for this WITH IV CONTRAST (most inpatients PM CDT Neoplasm Of procedu re are in and all Pancreas (HCC) the results outpatients) section. CT CHEST WITH IV RAD - Routine 04/27/2021 12:42 Malignant Result s for this CONTRAST (most inpatients PM CDT Neoplasm Of procedure a re in and all Pancreas (HCC) the results outpatients) section. documented in this encounter Results CT Abdomen Pelvis with IV Contrast (04/27/2021 12:42 PM CDT) Anatomical Region Laterality Modality Abdomen, Pelvis, Abdominal RST LOS, N/A Comp uted Tomography, Computed Abdominal ARZ LOS, Abdominal FLA LOS Dileep ography Specimen (Source) Anatomical Collection Method Collection Time Re ceived Time Location / / Volume Laterality 04/27/2021 2:10 PM CDT Impressions 04/27/2021 2:53 PM CDT 1. Ill-defined pancreatic uncinate process hypodensity/mass, unchanged. 2. Abnormal/decreased parenchymal enhanc ement at the neck of the pancreas, increased from prior concerning for evol ving necrotizing pancreatitis. 3. Slight interval increase in peripancr eatic stranding, peripancreatic fluid, and small left peridiaphragmatic fluid f rom prior. No gas containing fluid collections or evidence of rim enhanceme nt or loculation 4. Transgastric pigtail stents in place terminating in the left upper quadrant without significant fluid surrounding th e stents 5. Ill-defined lesion in segment 5 the l iver, unchanged Narrative 04/27/2021 2:53 PM CDT EXAM: ??CT ABDOMEN PELVIS WITH IV CONTRAST COMPARISON: ??03/18/2021 FINDINGS: ?? For findings above the diaphragm please see dedicated CT chest. Redemonstration of biliary stent in alirio lar position to prior. Interval removal of previously seen biliary drain transve rsing the biliary stent and transgastric pigtail drain with tip within the biliar y stent from prior exam. Redemonstration of pigtail transgastric stents terminati ng in the left upper quadrant with trace fluid surrounding the stents. There is again ill-defined hypodensity a t the uncinate process of the pancreas measuring approximately 2.3 cm (3/147), similar to prior exam. Decreased parenchymal enhancement at the neck of t he pancreas (11/09/2024 and /) is more prominent than prior exam again concerni ng for evolving necrosis. Peripancreatic stranding, reticulation, and small amoun t of peripancreatic fluid is similar to slightly increased. No gas within this f luid. No CT evidence of rim enhancement or loculation Slight increase in small of perisplenic fluid below the diaphragm is similar to prior measuring 15 mm in craniocaudal di mension (5/124) previously 18 mm. Unchanged trace free fluid in lower pelv is. Significant narrowing at the portal veno us confluence (3/132), unchanged. 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 The SMV, portal veins remain patent. Aorta and it s branches appear patent without evidence of aneurysm. Left gonadal vein embolization Ill-defined 10 mm hypodense lesion in se gment 5 of the liver (3/153) similar to priors. Pneumobilia. Mildly distended ga llbladder with nondependent gas. Prominent mesenteric lymph nodes, simila r to prior. Mild degenerative changes of the spine. No new or suspicious osseous lesion. Procedure Note Mae Sanchez M.D. - 04/27/2021For matting of this note might be different from the original. EXAM: CT ABDOMEN PELVIS WITH IV CONTRAST COMPARISON: 03/18/2021 FINDINGS: For findings above the diaphragm please see dedicated CT chest. Redemonstration of biliary stent in alirio lar position to prior. Interval removal of previously seen biliary drain transve rsing the biliary stent and transgastric pigtail drain with tip within the biliar y stent from prior exam. Redemonstration of pigtail transgastric stents terminati ng in the left upper quadrant with trace fluid surrounding the stents. There is again ill-defined hypodensity a t the uncinate process of the pancreas measuring approximately 2.3 cm (3/147), similar to prior exam. Decreased parenchymal enhancement at the neck of t he pancreas (11/09/2024 and 4/116) is more prominent than prior exam again concerni ng for evolving necrosis. Peripancreatic stranding, reticulation, and small amoun t of peripancreatic fluid is similar to slightly increased. No gas within this f luid. No CT evidence of rim enhancement or loculation Slight increase in small of perisplenic fluid below the diaphragm is similar to prior measuring 15 mm in craniocaudal di mension (124) previously 18 mm. Unchanged trace free fluid in lower pelv is. Significant narrowing at the portal veno us confluence (/132), unchanged. 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 The SMV, portal veins remain patent. Aorta and it s branches appear patent without evidence of aneurysm. Left gonadal vein embolization Ill-defined 10 mm hypodense lesion in se gment 5 of the liver (3/153) similar to priors. Pneumobilia. Mildly distended ga llbladder with nondependent gas. Prominent mesenteric lymph nodes, simila r to prior. Mild degenerative changes of the spine. No new or suspicious osseous lesion. IMPRESSION: 1. Ill-defined pancreatic uncinate proce ss hypodensity/mass, unchanged. 2. Abnormal/decreased parenchymal enhanc ement at the neck of the pancreas, increased from prior concerning for evol ving necrotizing pancreatitis. 3. Slight interval increase in peripancr eatic stranding, peripancreatic fluid, and small left peridiaphragmatic fluid f rom prior. No gas containing fluid collections or evidence of rim enhanceme nt or loculation 4. Transgastric pigtail stents in place terminating in the left upper quadrant without significant fluid surrounding th e stents 5. Ill-defined lesion in segment 5 the l iver, unchanged Deborah VillaB.S. IMG CT PROCEDURES CT Chest with IV Contrast (04/27/2021 12:42 PM CDT) Anatomical Region Laterality Modality Chest, Thoracic RST LOS, Thoracic ARZ N/A Co mputed Tomography, Computed LOS, Thoracic ARZ LOS, Thoracic FLA Olivier graphy LOS Specimen (Source) Anatomical Collection Method Collection Time Re ceived Time Location / / Volume Laterality 04/27/2021 12:52 PM CDT Impressions 04/27/2021 1:06 PM CDT 1. ?? New, stable and diminishing solid noncalcified pulmonary nodules, detailed in the body of the report. 2. ??Resolved left pleural effusion and atelectases. Narrative 04/27/2021 1:06 PM CDT EXAM: CT CHEST WITH IV CONTRAST COMPARISON: Multiple chest CTs from 07/12to10/23/2020 ?? FINDINGS: A solid noncalcified 4 mm peripheral rig ht lower lobe nodule on series 3 image 335 was not definitively seen previously . A 5 mm solid noncalcified inferior right upper lobe nodule on series 3 imag e 237 has decreased from prior measurement of 6 mm. Multiple additional bilateral solid noncalcified nodules are stable since 07/30/2020 or have been obscured by atelectases previously. For example, the 3 mm solid noncalcified per ipheral left apical nodule on series 3 image 132 has not changed since 07/30/20 20. The central tracheal bronchial tree is patent. An apparent new 2 mm nodular density in the periphery of the left upper lobe on series 3 image 211 has an appearance of a mucous plug. Resolved left pleural effusion and atelectases. Shotty subcentimeter nodes without thora cic adenopathy by size criteria. Right chest Port-A-Cath tip terminates i n the upper cavoatrial junction, stable new since prior exam. Similar minimal spinal degenerative kingston ges. No aggressive osseous lesions identified. Thank you for the consultation. This examination was performed in conjun ction with a CT of the abdomen, which will be reported separately. Procedure Note Teofilo Odonnell M.D. - 04/27/2021Formattin g of this note might be different from the original. EXAM: CT CHEST WITH IV CONTRAST COMPARISON: Multiple chest CTs from 07/12to10/23/2020 FINDINGS: A solid noncalcified 4 mm peripheral rig ht lower lobe nodule on series 3 image 335 was not definitively seen previously . A 5 mm solid noncalcified inferior right upper lobe nodule on series 3 imag e 237 has decreased from prior measurement of 6 mm. Multiple additional bilateral solid noncalcified nodules are stable since 07/30/2020 or have been obscured by atelectases previously. For example, the 3 mm solid noncalcified per ipheral left apical nodule on series 3 image 132 has not changed since 07/30/20 20. The central tracheal bronchial tree is patent. An apparent new 2 mm nodular density in the periphery of the left upper lobe on series 3 image 211 has an appearance of a mucous plug. Resolved left pleural effusion and atelectases. Shotty subcentimeter nodes without thora cic adenopathy by size criteria. Right chest Port-A-Cath tip terminates i n the upper cavoatrial junction, stable new since prior exam. Similar minimal spinal degenerative kingston ges. No aggressive osseous lesions identified. Thank you for the consultation. This examination was performed in conjun ction with a CT of the abdomen, which will be reported separately. IMPRESSION: 1. New, stable and diminishing solid non calcified pulmonary nodules, detailed in the body of the report. 2. Resolved left pleural effusion and at electases. Deborah Valera IMG CT PROCEDURES documented in this encounter Visit Diagnoses Diagnosis Malignant Neoplasm Of Pancreas (HCC) documented in this encounter Administered Medications Inactive Administered Medications - up to 3 most recent administrations Medication Order MAR Action Action Date Dose Rate Site heparin flush 500 Units Given 04/27/2021 12:41 PM CDT 500 Units 500 Units, intra-catheter, During hospitalization, line care, Prior to discharge, Starting on Mon04/27/21 at 1109, For 1 dose, Implanted Vascular Access Device (IVAD) Venous Non-Valved: Following saline flush prior to discharge. iohexoL 300 mg iodine/mL solution 1-200 mL Given 04/27/2021 12:33 PM CDT 140 mL (OMNIPAQUE) 1-200 mL, intravenous, Once in imaging, contrast, Starting on Mon04/27/21 at 1104, For 1 dose, Imaging Protocol Orders, Dose per Radiant Medication Guidelines sodium chloride (PF) 0.9 % injection 1-1 00 mL Given 04/27/2021 12:30 PM CDT 50 mL 1-100 mL, intravenous, Once, On Mon04/27/21 at 1115, For 1 dose, Imaging Protocol Orders sodium chloride 0.9 % injection 10 mL Given 04/27/2021 12:41 PM CDT 10 mL 10 mL, intravenous, As needed, line care, Implanted Vascular Access Device (IVAD) Venous Non-Valved, Starting on Mon04/27/21 at 1108, Prior to and following infusion, between multiple consecutive infusions, and prior to blood sampling, Given 04/27/2021 11:23 AM CDT 10 mL documented in this encounter Care Teams Business Line Manager Relationship Specialty Start Date End Date Elsewhere, Pcp PCP - General Family Medicine 08/12/20 documented as of this encounter
--- OUTSIDE RECORDS SUMMARY | 2022-06-18 16:11 | XMS_ITS | Encounter Summary ---
:[address] [facility] Address [address] [place] [address] Care Team Providers Name Role Phone Elsewhere, Pcp Primary Care Provider Unavailable Encounter Details Date Type Department Care Team Description 03/19/2021 Ancillary Procedure Department of Gastroenterology Social History [...] How often do you attend pentecostal or roman catholic services? 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 [address] [place] [phone] (Wo rk) 06/22/2022 Infusion Oncology Maria Del Rosario Gomez APRN, C.N .P., M.S. [address] [place] [phone] (Wo rk) 06/29/2022 Lab Laboratory Medicine Maria Del Rosario Gomez AP RN, C.N.P., M.S. [address] [place] [phone] (Wo rk) 06/29/2022 Infusion Oncology Maria Del Rosario Gomez APRN, Remy.N .P., M.S. [address] [place] [phone] (Wo rk) documented as of this encounter Procedures Procedure Name Priority Date/Time Associated Comments Diagnosis GASTROENTEROLOGY IMAGE Routine 03/19/2021 4:25 Re sults for this EXAM PM CDT procedure are i n the results section. documented in this encounter Results ERCP-Gastroenterology Image Exam (03/19/2021 4:25 PM CDT) Specimen (Source) Anatomical Collection Method Collection Time Re ceived Time Location / / Volume Laterality 03/19/2021 4:24 PM CDT Narrative [facility] - 03/19/2021 5:57 PM CDT This order has been created and [...] on filedocumented in this encounter Care Teams Tongue And Groove Machine Setter Relationship Specialty Start Date End Date Elsewhere, Pcp PCP - General Family Medicine 08/12/20 documented as of this encounter
--- OUTSIDE RECORDS SUMMARY | 2022-06-18 16:11 | XMS_ITS | Encounter Summary ---
:1965 Author Organization [facility] Address [address] [place] [address] Care Team Providers Name Role Phone Elsewhere, Pcp Primary Care Provider Unavailable Reason for Visit Reason Comments Pre-Charting Encounter Details Date Type Department Care Team Description 03/26/2021 Clinical Communication Department of Aura Zheng Pr e-Charting Palliative Care in [place], [place] [address] [facility] [address] [place] [phone] Social History Tobacco Use Types Packs/Day Years [...] How often do you attend adventist or tenriism services? 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 [address] [place] [address] [phone] (Wo rk) 06/22/2022 Infusion Oncology Maria Del Rosario Gomez APRN, C.N .P., M.S. [address] [place] [address] [phone] (Wo rk) 06/29/2022 Lab Laboratory Medicine Maria Del Rosario Gomez AP RN, C.N.P., M.S. [address] [place] [address] [phone] (Wo rk) 06/29/2022 Infusion Oncology Maria Del Rosario Gomez APRN, C.N .P., M.S. [address] [place] [phone] (Wo rk) documented as of this encounter Visit Diagnoses Not on filedocumented in this encounter Care Teams Store Merchandiser Relationship Specialty Start Date End Date Elsewhere, Pcp PCP - General Family Medicine 08/12/20 documented as of this encounter
--- OUTSIDE RECORDS SUMMARY | 2022-06-18 16:11 | XMS_ITS | Encounter Summary ---
:1965 Author Organization [facility] Address [address] [place] [address] Care Team Providers Name Role Phone Elsewhere, Pcp Primary Care Provider Unavailable Encounter Details Date Type Department Care Team Description 04/29/2021 Admin Visit Department of Family Medicine in [place], [place] [address] [place] [phone] Social History Tobacco Use Types Packs/Day Years [...] er 01/15/2021 How often do you attend pentecostalism or mormonism services? 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 [address] [place] [phone] (Mj godoy) 06/22/2022 Infusion Oncology Maria Del Rosario Gomez APRN, C.N .P., M.S. [address] [place] [phone] (Mj godoy) 06/29/2022 Lab Laboratory Medicine Maria Del Rosario Gomez AP RN, C.N.P., M.S. [address] [place] [phone] (Mj godoy) 06/29/2022 Infusion Oncology Maria Del Rosario Gomez APRN, C.N .P., M.S. [address] [place] [phone] (Mj godoy) documented as of this encounter Visit Diagnoses Not on filedocumented in this encounter Additional Health Concerns Infection Onset Date Last Indicated Resolved Time COVID19 Pending 04/29/2021 04/29/2021 04/30/2021 1:48 AM CDT documented as of this encounter Care Teams Chief Commercial Officer Relationship Specialty Start Date End Date Elsewhere, Pcp PCP - General Family Medicine 08/12/20 documented as of this encounter
--- OUTSIDE RECORDS SUMMARY | 2022-06-18 16:12 | XMS_ITS | Encounter Summary ---
:1965 Author Organization [facility] Address [address] [place] [address] Care Team Providers Name Role Phone Elsewhere, Pcp Primary Care Provider Unavailable Reason for Visit Reason Comments Medication Question Encounter Details Date Type Department Care Team Description 02/19/2021 Clinical Communication Department of [facility] in [place] River[place], [facility] [address] [place], [place] [address] [place] [phone] [place], [place] [phone] (Work) [phone] Social History Tobacco Use Types Packs/Day Years [...] How often do you attend confucianist or mandaeism services? 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 Campbell is a 55 y/o male with pancreatic cancer who is followed in the palliative care clinic for pain, non-pain symptoms and psychosocial support. He was last seen in palliative care clinic on 02/11 by Nan Noyola NP. Mr. Campbell calls today with sleep and mood concerns. Mr. Campbell reports feeling mentally restless when trying to sleep at night. This has started over thelast couple of weeks. This wakes him up twice nightly for about an hour as well. He estimates sleeping 5 hours at night and hopes to increase this to 8 hours. He reports the worries on his mind at night include concerns for his health, prognosis, and making plans for their belongings and home. At night his provides support and he watches TV. The past two nights he took lorazepam once each night. It took a while but he finally fell back asleep. In the past he has used melatonin 3 mg atbedtime. This made him feel drunk in the morning. He is not taking olanzapine 2.5 mg twice daily as prescribed due to feeling like he was jumping out of the body from it. He had been using oxycodone 5 mg as needed for pain. He has not used an opioid in 4 days due to improved pain. He wonders if the opioid was taking the edge off and allowed him to sleep. He expresses the understanding that oxycodone is not a sleep. He also states I don't like taking medication. Of note, nausea is currently managed taking Zofran every 8 hours. 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 This was an important outlet for him. During the day he feels fatigued and has little interest in his hobbies. He worries he may be depressed as well. Mr. Campbell had appointments with his oncology teams today. He reports feeling good after his appointments today and notes helpful explanations provided visits today. He reports his oncology plan to finish chemo/radiation (in about 1-2 weeks) then in 6 weeks repeat PET scan. In the interim time, Mr. Campbell hopes to feel more normal in regards to sleep and mood. PLAN Provided active listening and validating his concerns during this uncertain time. He feels his poor sleep is impacting his mood and energy levels significantly. Will discuss with palliative care provider and update on recommendations. We did review sleep hygiene strategies. Will send these via portal as well. Discussed availability of palliative care social work professor for coping support and sleep program. He prefers to hold off for now. Information/Education: patient/caller able to teach back. Caller agreeable to plan of care: yes. The following references were used: nursing clinical judgement. ADDENDUM: Per recommendation from Kareen Wood DNP: Start trazodone 50 mg at bedtime consistently for 1 week. If no improvement, he can trial 100 mg at bedtime. Reviewed with , Shaniqua. Encouraged to call with questions. Will follow up on sleep and mood next week via phone. documented in this encounter Plan of Treatment Upcoming Encounters Date Type Specialty Care Team Description 06/22/2022 [facility], C.N[facility]., M.S. [address] [place] [phone] (Mj godoy) 06/22/2022 [facility]fusion [facility] [place] APRN, C.N .P., M.S. [address] [place] [phone] (Mj godoy) 06/29/2022 [facility], C.N[facility]., M.S. [address] [place] [phone] (Mj godoy) 06/29/2022 Infusion Oncology Maria Del Rosario Gomez APRN, C.N .P., M.S. [address] [place] [phone] (Mj godoy) documented as of this encounter Visit Diagnoses Not on filedocumented in this encounter Care Teams Flanging Roll Operator Relationship Specialty Start Date End Date Elsewhere, Pcp PCP - General Family Medicine 08/12/20 documented as of this encounter
--- OUTSIDE RECORDS SUMMARY | 2022-06-18 16:12 | XMS_ITS | Encounter Summary ---
:1965 Author Organization [facility] Address [address] [place] [address] Care Team Providers Name Role Phone Elsewhere, Pcp Primary Care Provider Unavailable Reason for Referral Radiation Therapy (Routine) - Closed Specialty Diagnoses / Procedures Referred By Contact Refer red To Contact Diagnoses Malignant Neoplasm Of Pancreas (HCC) Marilyn Ramon M.D. [facility] Procedures Management Visit [address] [place] [address] Referral ID Status Reason Start Date Expiration Date Visits Requ ested Visits Authorized [id number] Closed 01/18/2021 01/18/2022 10 10 Reason for Visit Radiation Therapy (Routine) - Closed Specialty Diagnoses / Procedures Referred By Contact Refer red To Contact Diagnoses Malignant Neoplasm Of Pancreas (HCC) Marilyn Ramon M.D. [facility] Procedures Management Visit [address] [place] [phone] Referral ID Status Reason Start Date Expiration Date Visits Requ ested Visits Authorized [id number] Closed 01/18/2021 01/18/2022 10 10 Encounter Details Date Type Department Care Team Description 02/25/2021 Hospital Encounter Department of Marilyn Ramon Neoplasm Radiation Oncology Chanelle Allen Of Pancreas (HCC) in [place], [address] [place], [place] [address] [facility] [address] [place], [place] [phone] (Work) [phone] Social History Tobacco Use Types Packs/Day Years [...] How often do you attend christian or moravian services? 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 HYDROmorphone Take 1-1.5 tablets 135 tablet 0 02/01/2021 (DILAUDID) 4 mg (4-6 mg total) by tabletIndications: mouth every 3 Chronic Pain/Nonacute (three) hours as Pain needed for pain Indication: Chronic Pain/Nonacute Pain. ketorolac (TORADOL) 10 Take 1 tablet (10 mg 28 tablet 0 04/01/2021 mg tablet total) by mouth 2 (two) times a day as needed for pain. kqfwhr-heunhrkg-sozuees Take 1-2 capsules by 120 capsule 0 0 01/11/2021 03/03/2021 (CREON) mouth as needed for 24,000-76,000-120,000 snacks. Take [address] capsule capsule with snacks, take 2 capsule with meals LORazepam (Ativan) 0.5 Take 1 tablet (0.5 20 tablet 0 01/1103/01/2021 mg tablet mg total) by mouth 2 (two) times a day as needed for anxiety. 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 sucralfate (CARAFATE) 1 TAKE ONE TABLET BY 0 02/0903/19/2021 gram tablet MOUTH FOUR TIMES DAILY NEEDED for upper abdominal pain. documented as of this encounter Progress Notes Marilyn Ramon M.D. - 02/25/2021 2:45 PM CDT Diagnosis: Pancreatic cancer Radiation Treatment Progress Summary Treatment Course: 1x Pancreas Plan ID Fractions Dose / Fraction (cGy) Dose Treated (cGy) Dose Planned (cGy) First Treatment Last Treatment Elapsed Days F1 Pancreas [phone] 01/25/2021 02/25/2021 31 Course Summary 01/25/2021 02/25/2021 31 SUBJECTIVE Mr. Adam Campbell a 55 y.o. reports that he feels about the same. He feels that his pain remains improved. He takes about 1/2 of a Dilaudid only occasionally now. He feels that he might be constipated, but had a small BM yesterday. He might use an enema later today. He notes no blood in his stool or belly pain. OBJECTIVE BP 98/67 (BP Location: Right arm, Patient Position: Sitting, Cuff Size: Small) Pulse 82 Temp 36.2 ??C (Temporal) Wt 65.1 kg BMI 20.27 kg/m?? PHYSICAL EXAM General appearance: alert, appears stated age, cooperative and no distress ASSESSMENT / PLAN #1?Unresectable Stage IB, T2 N0 M0 pancreatic adenocarcinoma, s/p neoadjuvant chemotherapy #2 Definitive radiation therapy along with weekly gemcitabine initiated on January 25, 2021; anticipatedcompletion on March 02, 2021 The patient is tolerating radiotherapy well. I am happy his abdominal pain is better. We will continue as planned. He did miss one day, but we anticipate that he will complete his treatments as plannedon Monday. He had grade 1 fatigue and grade 2 pain that was managed expectantly during his treatments. He knows we are here if he needs anything. He has followups with Drs. Mantilla and Carolee scheduled for March and April. We will leave our follow-ups as needed. His questions were answered; he was comfortable with this plan. Signed by: Marilyn Ramon M.D. 02/25/2021 2:20 PM CDT documented in this encounter Plan of Treatment Upcoming Encounters Date Type Specialty Care Team Description 06/22/2022 [facility] C[facility] M.S. [address] [place] [phone] (Wo rk) 06/22/2022 [facility] APRN, C.N .P., M.S. [address] [place] [phone] (Wo rk) 06/29/2022 [facility] RN, C.N.P., M.S. [address] [place] [phone] (Wo rk) 06/29/2022 [facility] APR[facility], C.N .P., M.S. [address] [place] [phone] (Wo rk) Scheduled Orders Name Type Priority Associated Diagnoses Order S chedule Management Visit Radiation Oncology Routine Malignant Neoplasm Once for 1 Of Pancreas (HCC) Occurrence s starting 02/25/2021 unti l 02/25/2021 documented as of this encounter Visit Diagnoses Diagnosis Malignant Neoplasm Of Pancreas (HCC) documented in this encounter Care Teams Chucking Machine Set Up Operator Tool Relationship Specialty Start Date End Date Elsewhere, Pcp PCP - General Family Medicine 08/12/20 documented as of this encounter
--- OUTSIDE RECORDS SUMMARY | 2022-06-18 16:12 | XMS_ITS | Encounter Summary ---
:1965 Author Organization [facility] Address [address] [place] [address] Care Team Providers Name Role Phone Elsewhere, Pcp Primary Care Provider Unavailable Reason for Visit Episode Based Medications (Routine) - Closed Specialty Diagnoses / Procedures Referred By Contact Refer red To Contact Diagnoses Malignant Neoplasm Of Pancreas (HCC) Deborah Murray M.B.B.S. [facility] Procedures [place] GEMCITABINE HCL [address] [facility] [address] [place] [phone] [place] [address] Referral ID Status Reason Start Date Expiration Date Visits Requ ested Visits Authorized [id number] Closed 01/15/2021 01/15/2022 12 12 Encounter Details Date Type Department Care Team Description 02/22/2021 Infusion Department of Oncology Ulises Cardenas Ma lignant Neoplasm Of Pancreas (HCC) (Primary Dx); in [facility] elke Roca Bacteremia [address] [place] [address] [address] [place] [phone] Social History Tobacco Use Types Packs/Day Years [...] How often do you attend taoist or anglican services? 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 documented as of this encounter Last Filed Vital Signs Vital Sign Reading Time Taken Comments Blood Pressure 101/67 02/22/2021 11:56 AM CDT Pulse 82 02/22/2021 11:56 AM CDT Temperature 36.3 ??C (97.3 ??F) 02/22/2021 11:56 AM CDT Respiratory Rate - - Oxygen Saturation - - Inhaled Oxygen Concentration - - Weight 64.5 kg (142 lb 4.9 oz) 02/22/2021 11:56 AM CDT Height - - Body Mass Index 20.1 02/19/2021 9:22 AM CDT documented in this encounter Plan of Treatment Upcoming Encounters Date Type Specialty Care Team Description 06/22/2022 Lab Laboratory Medicine Maria Del Rosario Gomez AP RN, C.N.P., M.S. [address] [place] [phone] (Mj godoy) 06/22/2022 Infusion Oncology Maria Del Rosario Gomez APRN, C.N .P., M.S. [address] [place] [phone] (Mj godoy) 06/29/2022 Lab Laboratory Medicine Maria Del Rosario Gomez AP RN, C.N.P., M.S. [address] [place] [phone] (Mj godoy) 06/29/2022 Infusion Oncology Maria Del Rosario Gomez APRN, C.N Valerie., M.S. [address] [place], [place] [phone] (Wo rk) documented as of this encounter Visit Diagnoses Diagnosis Malignant Neoplasm Of Pancreas (HCC) - P rimary Bacteremia documented in this encounter Administered Medications Inactive Administered Medications - up to 3 most recent administrations Medication Order MAR Action Action Date Dose Rate Site gemcitabine 500 mg in NaCl New Bag 02/22/2021 12:43 PM CDT 500 mg 526 mL/hr 0.9% 263.15 mL IVPB (GEMZAR) 500 mg (rounded from 540 mg = 300 mg/m2 ? 1.8 m2 Order-specific BSA), intravenous, at 526 mL/hr, Administer over 30 Minutes, Once, On Mon02/22/21 at 1200, For 1 dose heparin flush 500 Units Given 02/22/2021 1:53 PM CDT 500 Units 500 Units, intra-catheter, As needed, line care, Starting on Mon02/22/21 at 1154, When no infusion to maintain patency: For IVAD accessed, not in use, and/or prior to hospital discharge, flush every 7 days after 0.9% preservative-free NaCL flush. For IVAD NOT accessed or used, flush every 4 weeks after 0.9% preservative-free NaCL flush. NaCl 0.9 % bolus 1,000 mL New Bag 02/22/2021 12:19 PM CDT 1,000 mL 1000 mL/hr 1,000 mL, intravenous, at 1,000 mL/hr, Administer over 1 Hours, Once, On Mon02/22/21 at 1215, For 1 dose ondansetron (PF) injection 8 mg (ZOFRAN) Given 02/22/2021 12:19 PM CDT 8 mg 8 mg, intravenous, Once, On Mon02/22/21 at 1200, For 1 dose sodium chloride 0.9 % injection 10 mL Given 02/22/2021 1:53 PM CDT 10 mL 10 mL, intra-catheter, As needed, line care, Starting on Mon02/22/21 at 1154, When IVAD Accessed and in Use: Flush prior to and following infusion, between multiple consecutive infusions, and prior to blood sampling. documented in this encounter Care Teams Insulation Board Back Tender Relationship Specialty Start Date End Date Elsewhere, Pcp PCP - General Family Medicine 08/12/20 documented as of this encounter
--- OUTSIDE RECORDS SUMMARY | 2022-06-18 16:12 | XMS_ITS | Encounter Summary ---
:1965 Author Organization [facility] Address [address] [place] [phone] Care Team Providers Name Role Phone Elsewhere, Pcp Primary Care Provider Unavailable Reason for Visit Radiation Therapy (Routine) - Closed Specialty Diagnoses / Procedures Referred By Contact Refer red To Contact Diagnoses Malignant Neoplasm Of Pancreas (HCC) Lesia Silva M.D., Ph.D. [facility] Procedures Prior Auth Rad Tx [facility] RADTN TX DEL >=1 MEV COMPLEX [address] [place] [address] Referral ID Status Reason Start Date Expiration Date Visits Requ ested Visits Authorized [id number] Closed 01/25/2021 01/25/2022 30 30 Encounter Details Date Type Department Care Team Description 02/26/2021 Hospital Encounter Department of Radiation Cat Ramon I., Oncology in [place] [address] [facility] [address] [place] [phone] Social History Tobacco Use Types Packs/Day Years [...] er 01/15/2021 How often do you attend adventism or alevism services? 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 [id number]-[id number]-crlwwsx Take 1-2 capsules by 120 capsule 0 [...] abdominal pain. documented as of this encounter Plan of Treatment Upcoming Encounters Date Type Specialty Care Team Description 06/22/2022 Lab Laboratory Medicine Maria Del Rosario Gomez AP RN, C.N.P., M.S. [address] [place] [phone] (Mj godoy) 06/22/2022 Infusion Oncology Maria Del Rosario Gomez APRN, C.N .P., M.S. [address] [place] [phone] (Mj godoy) 06/29/2022 Lab Laboratory Medicine Maria Del Rosario Gomez AP RN, C.N.P., M.S. [address] [place] [phone] (Mj godoy) 06/29/2022 Infusion Oncology Maria Del Rosario Gomez APRN, C.N .P., M.S. [address] [place], [place] [phone] (Wo rk) documented as of this encounter Visit Diagnoses Not on filedocumented in this encounter Care Teams Bowling Ball Grader And Marker Relationship Specialty Start Date End Date Elsewhere, Pcp PCP - General Family Medicine 08/12/20 documented as of this encounter
--- OUTSIDE RECORDS SUMMARY | 2022-06-18 16:12 | XMS_ITS | Encounter Summary ---
:1965 Author Organization [facility] Address [address] [place] [address] Care Team Providers Name Role Phone Elsewhere, Pcp Primary Care Provider Unavailable Reason for Visit Episode Based Medications (Routine) - Closed Specialty Diagnoses / Procedures Referred By Contact Refer red To Contact Diagnoses Malignant Neoplasm Of Pancreas (HCC) Deborah Murray M.B.B.S. [facility] Procedures [place] GEMCITABINE HCL 200 [facility] [address] [place] [phone] [place] [address] Referral ID Status Reason Start Date Expiration Date Visits Requ ested Visits Authorized [id number] Closed 01/15/2021 01/15/2022 12 12 Encounter Details Date Type Department Care Team Description 03/01/2021 Lab Department of Infusion Deborah Murray Malig nant Neoplasm Of Pancreas (HCC) (Primary Dx); Therapy in [facility].Maria.B.S. [facility] [address] [facility] [address] [place] [phone] (Wo rk) Social History Tobacco Use Types [...] How often do you attend mormon or uatsdin services? 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 [address] [place] [phone] (Mj godoy) 06/22/2022 Infusion Oncology Maria Del Rosario Gomez APRN, C.N .P., M.S. [address] [place] [phone] (Mj godoy) 06/29/2022 Lab Laboratory Medicine Maria Del Rosario Gomez AP RN, C.N.P., M.S. [address] [place] [phone] (Mj godoy) 06/29/2022 Infusion Oncology Maria Del Rosario Gomez APRN, C.N .P., M.S. [address] [place] [phone] (Mj godoy) documented as of this encounter Procedures Procedure Name Priority Date/Time Associated Comments Diagnosis CBC CHEMO - NO ALERTS Routine 03/01/2021 2:11 PM Malignant Siva plasm Results for this CDT Of Pancreas (HCC) procedure are in the results section. COMPREHENSIVE Routine 03/01/2021 2:10 PM Malignant Neoplasm Re sults for this METABOLIC PANEL, S/P CDT Of Pancreas (HCC) pr ocedure are in the results section. documented in this encounter Results (ABNORMAL) CBC, Chemotherapy, No Alerts (03/01/2021 2:11 PM CDT) Analysis Performed At Patho logist Time Signature Hemoglobin 11.4 (L) 13.2 - 03/01/2021 DTL 16.6 g/dL 2:40 PM CDT Platelet Count 87 (L) 135 - 317 03/01/2021 DTL x10(9)/L 2:40 PM CDT Leukocytes 2.5 (L) 3.4 - 9.6 03/01/2021 DTL x10(9)/L 2:40 PM CDT Neutrophils 1.70 1.56 - 03/01/2021 DTL 6.45 2:40 PM CDT x10(9)/L Specimen Anatomical Collection Method Collection Time Receive d Time (Source) Location / / Volume Laterality Blood (Blood, 03/01/2021 2:11 PM 03/01/20 2:29 Venous) CDT PM CDT Deborah RussoSRiaz LAB BLOOD ADD-ON Performing Organization Address City/State/ZIP Code Phon e Number [facility] - 200 [place], [place] [address] [facility] [place] [address] Laboratories[facility] [address] [facility] (ABNORMAL) Comprehensive Metabolic Panel (03/01/2021 2:10 PM CDT) P athologist Signature Potassium, S 3.9 3.6 - 5.2 03/01/2021 DTL mmol/L 3:06 PM CDT Sodium, S 138 135 - 145 03/01/2021 DTL mmol/L 3:06 PM CDT Chloride, S 102 98 - 107 03/01/2021 DTL mmol/L 3:06 PM CDT Bicarbonate, S 28 22 - 29 03/01/2021 DTL mmol/L 3:06 PM CDT Anion Gap 8 7 - 15 03/01/2021 DTL 3:06 PM CDT BUN (Blood Urea 16 8 - 24 03/01/2021 DTL Nitrogen), S mg/dL 3:06 PM CDT Creatinine 0.83 0.74 - 03/01/2021 DTL 1.35 mg/dL 3:06 PM CDT eGFR-Non >90 >=60 03/01/2021 DTL Black/ mL/min/BSA 3:06 PM CDT [place] Comment: ----ADDITIONAL INFORMATION---- Estimated GFR calculated using the 2009 CKD_EPI creatinine equation. eGFR-Black/ >90 >=60 mL/min/BSA 2020 3:06 PM CDT DTL Comment: ----ADDITIONAL INFORMATION---- Estimated GFR calculated using the 2009 CKD_EPI creatinine equation. Calcium, Total, S 8.5 (L) 8.6 - 10.0 mg/dL 03/01/2021 3:06 PM CDT DTL Glucose, S 117 70 - 140 mg/dL 03/01/2021 3:06 PM CDT D TL Protein, Total, S 6.4 6.3 - 7.9 g/dL 03/01/2021 3:06 P M CDT DTL Albumin, S 3.8 3.5 - 5.0 g/dL 03/01/2021 3:06 PM CDT D TL Aspartate Aminotransferase 31 8 - 48 U/L 03/01/2021 3 :06 PM CDT DTL (AST), S Alkaline Phosphatase, S 161 (H) 40 - 129 U/L 03/01/2021 3: 06 PM CDT DTL Alanine Aminotransferase 56 (H) 7 - 55 U/L 03/01/2021 3:0 6 PM CDT DTL (ALT), S Bilirubin, Total, S 0.3 <=1.2 mg/dL 03/01/2021 3:06 PM CDT DTL Specimen Anatomical Collection Method Collection Time Receive d Time (Source) Location / / Volume Laterality Blood (Blood, 03/01/2021 2:10 PM 03/01/20 2:29 Venous) CDT PM CDT Deborah RussoSRiaz LAB BLOOD ADD-ON Performing Organization Address City/State/ZIP Code Phon e Number [facility] - [address] [place], [place] [address] [facility] [place] [address] [facility] [address] documented in this encounter Visit Diagnoses Diagnosis Malignant Neoplasm Of Pancreas (HCC) - P rimary Bacteremia documented in this encounter Administered Medications Inactive Administered Medications - up to 3 most recent administrations Medication Order MAR Action Action Date Dose Rate Site heparin flush 500 Units Given 03/01/2021 2:15 PM CDT 500 Units 500 Units, intra-catheter, As needed, line care, Starting on Mon03/01/21 at 1359, When no infusion to maintain patency: For IVAD accessed, not in use, and/or prior to hospital discharge, flush every 7 days after 0.9% preservative-free NaCL flush. For IVAD NOT accessed or used, flush every 4 weeks after 0.9% preservative-free NaCL flush. sodium chloride 0.9 % injection 20 mL Given 03/01/2021 2:15 PM CDT 20 mL 20 mL, intra-catheter, As needed, line care, Starting on Mon03/01/21 at 1359, When IVAD Accessed and in Use: Flush post blood transfusion or post blood sampling. documented in this encounter Care Teams Assistant Coach Relationship Specialty Start Date End Date Elsewhere, Pcp PCP - General Family Medicine 08/12/20 documented as of this encounter
--- OUTSIDE RECORDS SUMMARY | 2022-06-18 16:12 | XMS_ITS | Encounter Summary ---
:1965 Author Organization [facility] Address [address] [place] [address] Care Team Providers Name Role Phone Elsewhere, Pcp Primary Care Provider Unavailable Reason for Visit Episode Based Medications (Routine) - Closed Specialty Diagnoses / Procedures Referred By Contact Refer red To Contact Diagnoses Malignant Neoplasm Of Pancreas (HCC) Deborah Murray M.B.B.S. Rst On[facility] Procedures RI GEMCITABINE HCL [address] [place] [address] [place] [phone] [place] [address] Referral ID Status Reason Start Date Expiration Date Visits Requ ested Visits Authorized [id number] Closed 01/15/2021 01/15/2022 12 12 Encounter Details Date Type Department Care Team Description 02/19/2021 Lab Department of Laboratory Ulises Cardenas, Malignant Neoplasm Of Pancreas (HCC) (Primary Dx); Medicine and PathologyChanelle [place] [address] [place] [address] [place] [phone] [place] [address] [phone] Social History Tobacco Use Types Packs/Day Years [...] How often do you attend cheondoism or sikh services? Never 01/15/2021 Do you [...] at Date Recorded Male 08/18/2021 2:55 PM CATTYMAN documented as of this encounter Plan of Treatment Upcoming Encounters Date Type Specialty Care Team Description 06/22/2022 Lab Laboratory Medicine Maria Del Rosario Gomez AP RN, C.N.P., M.S. [address] [place] [address] [phone] (Mj godoy) 06/22/2022 Infusion Oncology Maria Del Rosario Gomez APRN, C.N .P., M.S. [address] [place] [address] [phone] (Mj godoy) 06/29/2022 Lab Laboratory Medicine Maria Del Rosario Gomez AP RN, C.N.P., M.S. [address] [place] [address] [phone] (Mj godoy) 06/29/2022 Infusion Oncology Maria Del Rosario Gomez APRN, C.N .P., M.S. [address] [place] [address] [phone] (Mj godoy) documented as of this encounter Procedures Procedure Name Priority Date/Time Associated Comments Diagnosis CBC CHEMO - NO ALERTS Routine 02/19/2021 7:26 AM Malignant Siva plasm Results for this CDT Of Pancreas (HCC) procedure are in the results section. COMPREHENSIVE Routine 02/19/2021 7:26 AM Malignant Neoplasm Re sults for this METABOLIC PANEL, S/P CDT Of Pancreas (HCC) pr ocedure are in the results section. documented in this encounter Results (ABNORMAL) Comprehensive Metabolic Panel (02/19/2021 7:26 AM CDT) Analysis Performed At [facility] Time Signature Potassium, S 3.6 3.6 - 5.2 02/19/2021 DTL mmol/L 8:15 AM CDT Sodium, S 135 135 - 145 02/19/2021 DTL mmol/L 8:15 AM CDT Chloride, S 99 98 - 107 02/19/2021 DTL mmol/L 8:15 AM CDT Bicarbonate, S 25 22 - 29 02/19/2021 DTL mmol/L 8:15 AM CDT Anion Gap 11 7 - 15 02/19/2021 DTL 8:15 AM CDT BUN (Blood Urea 13 8 - 24 02/19/2021 DTL Nitrogen), S mg/dL 8:15 AM CDT Creatinine 0.72 (L) 0.74 - 02/19/2021 DTL 1.35 mg/dL 8:15 AM CDT eGFR-Non >90 >=60 02/19/2021 DTL Black/ mL/min/BSA 8:15 AM CDT Bahraini Comment: ----ADDITIONAL INFORMATION---- Estimated GFR calculated using the 2009 CKD_EPI creatinine equation. eGFR-Black/ >90 >=60 mL/min/BSA 2020 8:15 AM CDT DTL Comment: ----ADDITIONAL INFORMATION---- Estimated GFR calculated using the 2009 CKD_EPI creatinine equation. Calcium, Total, S 9.2 8.6 - 10.0 mg/dL 02/19/2021 8:15 AM CDT DTL Glucose, S 170 (H) 70 - 140 mg/dL 02/19/2021 8:15 AM CDT D TL Protein, Total, S 7.1 6.3 - 7.9 g/dL 02/19/2021 8:15 A M CDT DTL Albumin, S 4.1 3.5 - 5.0 g/dL 02/19/2021 8:15 AM CDT D TL Aspartate Aminotransferase 21 8 - 48 U/L 02/19/2021 8 :15 AM CDT DTL (AST), S Alkaline Phosphatase, S 80 40 - 129 U/L 02/19/2021 8: 15 AM CDT DTL Alanine Aminotransferase 17 7 - 55 U/L 02/19/2021 8:1 5 AM CDT DTL (ALT), S Bilirubin, Total, S 0.5 <=1.2 mg/dL 02/19/2021 8:15 AM CDT DTL Specimen Anatomical Collection Method Collection Time Receive d Time (Source) Location / / Volume Laterality Blood (Blood, 02/19/2021 7:26 AM 02/20/20 21 7:35 Venous) CDT AM CDT Ulises Cardenas M.D. LAB BLOOD ADD-ON Performing Organization Address City/[facility] Phon e Number [facility] - [address] (ABNORMAL) CBC, Chemotherapy, No Alerts (02/19/2021 7:26 AM CDT) Analysis Performed At Patho logist Time Signature Hemoglobin 12.4 (L) 13.2 - 02/19/2021 METH 16.6 g/dL 7:37 AM CDT Platelet Count 302 135 - 317 02/19/2021 METH x10(9)/L 7:37 AM CDT Leukocytes 4.4 3.4 - 9.6 02/19/2021 M[facility] x10(9)/L 7:37 AM CDT Neutrophils 3.94 1.56 - 02/19/2021 M[facility] 6.45 7:37 AM CDT x10(9)/L Specimen Anatomical Collection Method Collection Time Receive d Time (Source) Location / / Volume Laterality Blood (Blood, 02/19/2021 7:26 AM 02/20/20 21 7:33 Venous) CDT AM CDT Ulises Cardenas M.D. LAB BLOOD ADD-ON Performing Organization Address City/[facility] Phon e Number [facility] - [address] [place] [address] documented in this encounter Visit Diagnoses Diagnosis Malignant Neoplasm Of Pancreas (HCC) - P rimary Bacteremia documented in this encounter Administered Medications Inactive Administered Medications - up to 3 most recent administrations Medication Order MAR Action Action Date Dose Rate Site heparin flush 500 Units Given 02/19/2021 7:20 AM CDT 500 Units 500 Units, intra-catheter, As needed, line care, Starting on Mon02/19/21 at 0722, When no infusion to maintain patency: For IVAD accessed, not in use, and/or prior to hospital discharge, flush every 7 days after 0.9% preservative-free NaCL flush. For IVAD NOT accessed or used, flush every 4 weeks after 0.9% preservative-free NaCL flush. sodium chloride 0.9 % injection 10 mL Given 02/19/2021 7:10 AM CDT 10 mL 10 mL, intra-catheter, As needed, line care, Starting on Mon02/19/21 at 0722, When IVAD Accessed and in Use: Flush prior to and following infusion, between multiple consecutive infusions, and prior to blood sampling. sodium chloride 0.9 % injection 20 mL Given 02/19/2021 7:20 AM CDT 20 mL 20 mL, intra-catheter, As needed, line care, Starting on Mon02/19/21 at 0722, When IVAD Accessed and in Use: Flush post blood transfusion or post blood sampling. documented in this encounter Care Teams Solvent Plant Operator Relationship Specialty Start Date End Date Elsewhere, Pcp PCP - General Family Medicine 08/12/20 documented as of this encounter
--- OUTSIDE RECORDS SUMMARY | 2022-06-18 16:12 | XMS_ITS | Encounter Summary ---
:1965 Author Organization [facility] Address [address] [place] [address] Care Team Providers Name Role Phone Elsewhere, Pcp Primary Care Provider Unavailable Reason for Visit Reason Comments Med Refill Encounter Details Date Type Department Care Team Description 03/03/2021 Refill Department of Palliative Care Romi White M.D. Med Refill in [facility] [address] [facility] [address] [place] [phone] [place] [address] [phone] Social History Tobacco Use Types Packs/Day Years [...] How often do you attend quaker or oriental orthodox services? 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 [address] [place] [address] [phone] (Wo rk) 06/22/2022 Infusion Oncology Maria Del Rosario Gomez APRN, C.N .P., M.S. [address] [place] [address] [phone] (Wo rk) 06/29/2022 Lab Laboratory Medicine Maria Del Rosario Gomez AP RN, C.N.P., M.S. [address] [place] [address] [phone] (Wo rk) 06/29/2022 Infusion Oncology Maria Del Rosario Gomez APRN, C.N .P., M.S. [address] [place] [address] [phone] (Wo rk) documented as of this encounter Visit Diagnoses Not on filedocumented in this encounter Additional Health Concerns Infection Onset Date Last Indicated Resolved Time COVID19 Pending 03/19/2021 03/19/2021 03/19/2021 3:24 AM CDT documented as of this encounter Care Teams Garage Door Installer Relationship Specialty Start Date End Date Elsewhere, Pcp PCP - General Family Medicine 08/12/20 documented as of this encounter
--- OUTSIDE RECORDS SUMMARY | 2022-06-18 16:12 | XMS_ITS | Encounter Summary ---
:1965 Author Organization [facility] Address [address] [place] [address] Care Team Providers Name Role Phone Elsewhere, Pcp Primary Care Provider Unavailable Reason for Visit Outpatient (Routine) - Closed Specialty Diagnoses / Procedures Referred By Contact Refer red To Contact Oncology Deborah Murray M.B.B.S . [facility] [address] [place] [phone] Referral ID Status Reason Start Date Expiration Date Visits Requ ested Visits Authorized [id number] Closed 02/19/2021 02/19/2022 1 1 Encounter Details Date Type Department Care Team Description 03/12/2021 Office Visit Department of Oncology Wes Mantilla Maant Neoplasm Of in Randall Perdomo M.D. Pancreas (HCC) [place] 200 [facility] (Primary Dx) [address] [place] [phone] Social History Tobacco Use Types Packs/Day Years [...] How often do you attend presybeterian or zoroastrian services? 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 - 03/12/2021 4:00 PM CDT SUBJECTIVE Follow-up after completion of radiation PRIMARY CARE PHYSICIAN ELSEWHERE, PCP LOCAL ONCOLOGIST No care development team lead to display PRIMARY [place] ONCOLOGIST Deborah Murray M.B.B.S. Maria Del Rosario Gomez APRN, C.N.P., M.S. CHIEF COMPLAINT / REASON FOR VISIT Adam Campbell is a 55 y.o. male who presents for evaluation of locally advanced pancreatic cancer HISTORY OF PRESENT ILLNESS Oncology [...] (01/25/2021 - 03/02/2021) Site: Pancreas Technique: 3D AUTO MECHANIC APPRENTICE Goal: Curative Planned Treatment Start Date: 01/25/2021 01/25/2021 - 03/01/2021 Chemotherapy Gemcitabine ( with Radiation ) Start Date: 01/25/2021 Mr. Campbell is seen in follow-up of his recent radiation chemotherapy for his locally advanced pancreatic cancer. Mr. Campbell notes that since completing the radiation he has had resolution of his back pain. However, he does have a sense of left upper abdominal pain approximately 1 hour after eating. Thisresponds to hydromorphone. Other than the abdominal pain, Mr. Campbell notes that he continues to be fatigue. The fatigue is progressively lessening, but still limits his daily activities. The following portions of the patient's history were reviewed and updated as appropriate: allergies,current medications, medical history and problem list. REVIEW OF SYSTEMS No recent fevers OBJECTIVE BP 103/68 (BP Location: Right arm, Patient Position: Sitting, Cuff Size: Regular) Pulse 76 Temp (!) 35.8 ??C (Tympanic) Resp 14 Ht 179.1 cm Wt 65.7 kg SpO2 100% BMI 20.48 kg/m?? No data recorded PHYSICAL EXAM ECOG Score: 1 - symptomatic but completely ambulatory General: Alert and oriented, in no acute distress. Lymph: No palpable cervical, supraclavicular, axillary, umbilical, or inguinal lymphadenopathy. Heart: Regular rate and rhythm. Lungs: Clear to auscultation bilaterally. Abdomen: Soft, non-tender, non-distended. Extremities: Without edema. LABORATORY DATA Lab data reviewed. RADIOLOGICAL DATA Radiology data reviewed. ASSESSMENT / PLAN #1 Malignant Neoplasm Of Pancreas (HCC) Mr. Campbell is seen in follow-up of his recent radiation chemotherapy. Based on his change in symptomshe has had a very good response to the radiation with resolution of the cancer related back pain. However he is having some left upper abdominal pain after eating that is likely a residual side effect of the radiation chemotherapy. I recommended continued conservative management. Mr. Campbell will returnin mid April for repeat evaluation. We discussed that the current treatment is likely to provide benefit for 4-10 months. After that time he will likely have some evidence of progression at which timeadditional systemic therapy would be indicated. PATIENT EDUCATION Ready to learn, no apparent [...] Gomez AP RN, C.N.P., M.S. [address] [place] [address] [phone] (Mj godoy) 06/22/2022 Infusion Oncology Maria Del Rosario Gomez APRN, C.N .P., M.S. [address] [place] [address] [phone] (Mj godoy) 06/29/2022 Lab Laboratory Medicine Maria Del Rosario Gomez AP RN, C.N.P., M.S. [address] [place] [address] [phone] (Mj godoy) 06/29/2022 Infusion Oncology Maria Del Rosario Gomez APRN, C.N .P., M.S. [address] [place], [place] [phone] (Wo rk) documented as of this encounter Visit Diagnoses Diagnosis Malignant Neoplasm Of Pancreas (HCC) - P rimary documented in this encounter Care Teams Aquaculture Farm Manager Relationship Specialty Start Date End Date Elsewhere, Pcp PCP - General Family Medicine 08/12/20 documented as of this encounter
--- OUTSIDE RECORDS SUMMARY | 2022-06-18 16:12 | XMS_ITS | Encounter Summary ---
:1965 Author Organization [facility] Address [address] [place] [address] Care Team Providers Name Role Phone Elsewhere, Pcp Primary Care Provider Unavailable Reason for Visit Radiation Therapy (Routine) - Closed Specialty Diagnoses / Procedures Referred By Contact Refer red To Contact Diagnoses Malignant Neoplasm Of Pancreas (HCC) Lesia Silva M.D., Ph.D. [facility] Procedures Prior Auth Rad Tx CA RADTN TX DEL >=1 MEV COMPLEX [address] [place] [address] Referral ID Status Reason Start Date Expiration Date Visits Requ ested Visits Authorized [id number] Closed 01/25/2021 01/25/2022 30 30 Encounter Details Date Type Department Care Team Description 03/02/2021 Hospital Encounter Department of Radiation Cat Ramon I., Oncology in [place] [address] [facility] [address] [place] [phone] Social History Tobacco Use Types Packs/Day Years [...] How often do you attend sikhism or pentecostal services? Never 01/15/2021 Do you [...] at Date Recorded Male 08/18/2021 2:55 PM BOBBIN STRIPPER documented as of this encounter Medications at [...] times a day as needed for pain. [id number] Take 1-2 capsules by 120 capsule 0 [...] Gomez AP RN, C.N.P., M.S. [address] [place] [address] [phone] (Mj godoy) 06/22/2022 Infusion Oncology Maria Del Rosario Gomez APRN, C.N .P., M.S. [address] [place] [address] [phone] (Mj godoy) 06/29/2022 Lab Laboratory Medicine Maria Del Rosario Gomez AP RN, C.N.P., M.S. [address] [place] [address] [phone] (Mj godoy) 06/29/2022 Infusion Oncology Maria Del Rosario Gomez APRN, C.N .P., M.S. [address] [place], [place] [phone] (Wo rk) documented as of this encounter Visit Diagnoses Not on filedocumented in this encounter Care Teams Fabrication And Layout Craftsman Relationship Specialty Start Date End Date Elsewhere, Pcp PCP - General Family Medicine 08/12/20 documented as of this encounter
--- OUTSIDE RECORDS SUMMARY | 2022-06-18 16:12 | XMS_ITS | Encounter Summary ---
:1965 Author Organization [facility] Address [address] [place] [address] Care Team Providers Name Role Phone Elsewhere, Pcp Primary Care Provider Unavailable Reason for Referral Radiation Therapy (Routine) - Closed Specialty Diagnoses / Procedures Referred By Contact Refer red To Contact Diagnoses Malignant Neoplasm Of Pancreas (HCC) Marilyn Ramon M.D. [facility] Procedures Management Visit [address] [place] [address] Referral ID Status Reason Start Date Expiration Date Visits Requ ested Visits Authorized [id number] Closed 01/18/2021 01/18/2022 10 10 Reason for Visit Reason Onset Date Comments Error 02/25/2021 Radiation Therapy (Routine) - Closed Specialty Diagnoses / Procedures Referred By Contact Refer red To Contact Diagnoses Malignant Neoplasm Of Pancreas (HCC) Marilyn Ramon M.D. [facility] Procedures Management Visit [address] [place] [address] Referral ID Status Reason Start Date Expiration Date Visits Requ ested Visits Authorized [id number] Closed 01/18/2021 01/18/2022 10 10 Encounter Details Date Type Department Care Team Description 02/24/2021 - Hospital Encounter Department of Marilyn Ramon ENCOUNTER--DISREGARD (Primary Dx); 02/25/2021 Radiation Oncology Chanelle Allen Malignant Neoplasm Of Pancreas (HCC) in [place], [facility] [address] [place], [place] [address] [facility] [address] [place], [place] [phone] (Work) [phone] Social History Tobacco Use Types Packs/Day Years [...] How often do you attend sabianist or scientologist services? 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 [id number] Take 1-2 capsules by 120 capsule 0 [...] encounter Progress Notes Marilyn Ramon M.D. - 02/24/2021 3:00 PM CDT This encounter was created in error - please disregard. documented in this encounter Plan of Treatment Upcoming Encounters Date Type Specialty Care Team Description 06/22/2022 Lab [facility], C.N.P., M.S. [address] [place] [phone] (Mj rk) 06/22/2022 [facility], C.N .P., M.S. [address] [place] [phone] (Mj rk) 06/29/2022 Lab Laboratory [facility] RN, C.N.P., M.S. [address] [place] [phone] (Mj rk) 06/29/2022 [facility] APRN, C.N .P., M.S. [address] [place] [phone] (Mj rk) Scheduled Orders Name Type Priority Associated Diagnoses Order S chedule Management Visit Radiation Oncology Routine Malignant Neoplasm Once for 1 Of Pancreas (HCC) Occurrence s starting 02/24/2021 unti l 02/24/2021 documented as of this encounter Visit Diagnoses Diagnosis ERRONEOUS ENCOUNTER--DISREGARD - Primary Malignant Neoplasm Of Pancreas (HCC) documented in this encounter Care Teams Strip Catcher Relationship Specialty Start Date End Date Elsewhere, Pcp PCP - General Family Medicine 08/12/20 documented as of this encounter
--- OUTSIDE RECORDS SUMMARY | 2022-06-18 16:12 | XMS_ITS | Encounter Summary ---
:1965 Author Organization [facility] Address [address] [place] [address] Care Team Providers Name Role Phone Elsewhere, Pcp Primary Care Provider Unavailable Reason for Visit Radiation Therapy (Routine) - Closed Specialty Diagnoses / Procedures Referred By Contact Refer red To Contact Diagnoses Malignant Neoplasm Of Pancreas (HCC) Lesia Silva M.D., Ph.D. [facility] Procedures Prior Auth Rad Tx DE RADTN TX DEL >=1 MEV COMPLEX [address] [place] [address] Referral ID Status Reason Start Date Expiration Date Visits Requ ested Visits Authorized [id number] Closed 01/25/2021 01/25/2022 30 30 Encounter Details Date Type Department Care Team Description 02/19/2021 Hospital Encounter Department of Radiation Cat Rmaon I., Oncology in [place] [address] [place] [address] [place] [phone] Social History Tobacco Use Types Packs/Day Years [...] How often do you attend hinduism or alevism services? 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 [id number]-[id number] Take 1-2 capsules by 120 capsule 0 0 01/11/2021 03/03/2021 (CREON) mouth as needed for 24,000-76,000-120,000 snacks. Take [address] capsule capsule with snacks, take 2 capsule with meals LORazepam (Ativan) 0.5 Take 1 tablet (0.5 20 tablet 0 01/1103/01/2021 mg tablet mg total) by mouth 2 (two) times a day as needed for anxiety. OLANZapine (ZyPREXA) Take 1 tablet (2.5 60 tablet 0 02/11/2 021 02/24/2021 2.5 mg tablet mg total) by mouth 2 (two) times a day. At bedtime and in the morning for nausea ondansetron (ZOFRAN) 4 Take 1 tablet (4 mg 30 tablet 2 05/0 03/202102/24/2021 mg tablet total) by mouth every 8 (eight) hours as needed for nausea or vomiting (1 hour before RT). ondansetron (ZOFRAN) 8 Take 1 tablet (8 mg 20 tablet 0 02/0 01/202102/24/2021 mg tablet total) by mouth every 8 (eight) hours as needed for nausea or vomiting. ondansetron (ZOFRAN) 8 Take 1 tablet (8 mg 30 tablet 3 1 03/202108/16/2021 mg tabletIndications: total) by mouth Malignant Neoplasm Of every 8 (eight) Pancreas (HCC) hours as needed for nausea or vomiting. documented as of this encounter Plan of Treatment Upcoming Encounters Date Type Specialty Care Team Description 06/22/2022 Lab Laboratory Medicine Maria Del Rosario Gomez AP RN, C.N.P., M.S. [address] [place] [phone] (Wo rk) 06/22/2022 Infusion Oncology Maria Del Rosario Gomez APRN, Remy.N .Pamela., M.S. [address] [place] [phone] (Mj godoy) 06/29/2022 Lab Laboratory Medicine Maria Del Rosario Gomez AP RN, C.N.P., M.S. [address] [place] [address] [phone] (Mj godoy) 06/29/2022 Infusion Oncology Maria Del Rosario Gomez APRN, Remy.N .Pamela., M.S. [address] [place] [address] [phone] (Mj godoy) documented as of this encounter Visit Diagnoses Not on filedocumented in this encounter Care Teams Domestic Violence Advocate Relationship Specialty Start Date End Date Elsewhere, Pcp PCP - General Family Medicine 08/12/20 documented as of this encounter
--- OUTSIDE RECORDS SUMMARY | 2022-06-18 16:12 | XMS_ITS | Encounter Summary ---
:1965 Author Organization [facility] Address [address] [place] [address] Care Team Providers Name Role Phone Elsewhere, Pcp Primary Care Provider Unavailable Reason for Visit Episode Based Medications (Routine) - Closed Specialty Diagnoses / Procedures Referred By Contact Refer red To Contact Diagnoses Malignant Neoplasm Of Pancreas (HCC) Deborah Murray M.B.B.S. Rst Onc [place] Procedures [place] GEMCITABINE HCL [address] [place] [address] [place] [phone] [place] [address] Referral ID Status Reason Start Date Expiration Date Visits Requ ested Visits Authorized [id number] Closed 01/15/2021 01/15/2022 12 12 Encounter Details Date Type Department Care Team Description 03/01/2021 Infusion Department of Oncology Deborah Murray Malig nant Neoplasm Of Pancreas (HCC) (Primary Dx); in [facility] elke VillaBRiazS. Bacteremia [address] [facility] [address] [place] [address] [place], [place] [phone] Social History Tobacco Use Types Packs/Day Years [...] How often do you attend jainism or hindu services? 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 [address] [place] [phone] (Mj godoy) 06/22/2022 Infusion Oncology Maria Del Rosario Gomez APRN, C.N .P., M.S. [address] [place] [address] [phone] (Mj godoy) 06/29/2022 Lab Laboratory Medicine Maria Del Rosario Gomez AP RN, C.N.P., M.S. [address] [place] [address] [phone] (Mj godoy) 06/29/2022 [facility] .[facility] M[facility]S. [address] [place], [place] [phone] (Wo rk) documented as of this encounter Visit Diagnoses Diagnosis Malignant Neoplasm Of Pancreas (HCC) - P rimary Bacteremia documented in this encounter Administered Medications Inactive Administered Medications - up to 3 most recent administrations Medication Order MAR Action Action Date Dose Rate Site gemcitabine 500 mg in NaCl New Bag 03/01/2021 4:03 PM CDT 500 mg 526 mL/hr 0.9% 263.15 mL IVPB (GEMZAR) 500 mg (rounded from 540 mg = 300 mg/m2 ? 1.8 m2 Order-specific BSA), intravenous, at 526 mL/hr, Administer over 30 Minutes, Once, On Mon03/01/21 at 1545, For 1 dose heparin flush 500 Units Given 03/01/2021 5:17 PM CDT 500 Units 500 Units, intra-catheter, As needed, line care, Starting on Mon03/01/21 at 1542, When no infusion to maintain patency: For IVAD accessed, not in use, and/or prior to hospital discharge, flush every 7 days after 0.9% preservative-free NaCL flush. For IVAD NOT accessed or used, flush every 4 weeks after 0.9% preservative-free NaCL flush. NaCl 0.9 % bolus 1,000 mL New Bag 03/01/2021 3:48 PM CDT 1,000 mL 1000 mL/hr 1,000 mL, intravenous, at 1,000 mL/hr, Administer over 1 Hours, Once, On Mon03/01/21 at 1545, For 1 dose ondansetron (PF) injection 8 mg (ZOFRAN) Given 03/01/2021 3:48 PM CDT 8 mg 8 mg, intravenous, Once, On Mon03/01/21 at 1545, For 1 dose sodium chloride 0.9 % injection 10 mL Given 03/01/2021 5:17 PM CDT 10 mL 10 mL, intra-catheter, As needed, line care, Starting on Mon03/01/21 at 1542, When IVAD Accessed and in Use: Flush prior to and following infusion, between multiple consecutive infusions, and prior to blood sampling. documented in this encounter Care Teams Business Services Assistant Relationship Specialty Start Date End Date Elsewhere, Pcp PCP - General Family Medicine 08/12/20 documented as of this encounter
--- OUTSIDE RECORDS SUMMARY | 2022-06-18 16:12 | XMS_ITS | Encounter Summary ---
:1965 Author Organization [facility] Address [address] [place] [address] Care Team Providers Name Role Phone Elsewhere, Pcp Primary Care Provider Unavailable Encounter Details Date Type Department Care Team Description 02/24/2021 Clinical Communication Department of Marisa Christine, Palliative Care in [place], [place] [address] [facility] [address] [place] [phone] Social History Tobacco Use Types Packs/Day Years [...] How often do you attend mandaeism or congregation services? 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 - 02/24/2021 10:51 AM CDT ASSESSMENT I called Mr. Campbell today to follow up in his initiation of Trazodone 50 mg at bedtime. Mr. Campbell reports he has been using the Trazodone 50 mg most nights at bedtime and it has improved his ability to get to sleep and stay asleep. He reports not actually needing Trazodone for the past couple of nights and was able to easily get to sleep on his own. Mr. Campbell also shares that he has had decreased anxiety at bedtime. He attributes this to stopping the habit of researching his illness on his phone right at bedtime. He is also allowing himself to take a break from thinking about asset allocation and planning and instead has been having more fun. Yest erday he reports having a great day getting to visit with some old colleagues. Today he is on his way to the [employer] store. Mr. Campbell mentions that he has not been taking his Creon enzymes for the past couple of days. He states that when he takes the enzymes he gets terrible stomach pain. Since stopping the enzymes he reports no abdominal pain with eating, is stooling regularly, and has a great appetite. PLAN Affirmed Mr. Campbell's strategies of getting off his phone at bedtime as well as allowing himself to take a break from asset planning. Normalized his experience. Reassured Mr. Campbell that he cannot figureeverything out in a day, take it one day at a time. Encouraged him to think about other ways to manage overwhelming thoughts including creating a list or delegating tasks to trusted family members or friends. No changes to medication regimen at this time. Encouraged Mr. Campbell to report any changes in appetite, nausea, or bowel habits since he not currently taking his Creon. We have follow up scheduled with Mr. Campbell on 03/29. Disposition/Recommendation: self-care is appropriate at this time, [...] Gomez AP RN, C.N.P., M.S. [address] [place] [address] [phone] (Wo rk) 06/22/2022 Infusion Oncology Maria Del Rosario Gomez APRN, C.N .P., M.S. [address] [place] [address] 55 [phone] (Wo rk) 06/29/2022 Lab Laboratory Medicine Maria Del Rosario Gomez AP RN, C.N.P., M.S. [address] [place] [address] 55 [phone] (Wo rk) 06/29/2022 Infusion Oncology Maria Del Rosario Gomez APRN, C.N .P., M.S. [address] [place] [address] 55 [phone] (Wo rk) documented as of this encounter Visit Diagnoses Not on filedocumented in this encounter Care Teams Roving Hand Relationship Specialty Start Date End Date Elsewhere, Pcp PCP - General Family Medicine 08/12/20 documented as of this encounter
--- OUTSIDE RECORDS SUMMARY | 2022-06-18 16:12 | XMS_ITS | Encounter Summary ---
:1965 Author Organization [facility] Address [address] [place] [address] Care Team Providers Name Role Phone Elsewhere, Pcp Primary Care Provider Unavailable Encounter Details Date Type Department Care Team Description 03/02/2021 Documentation Department of Radiation Marilyn Ramon I., [facility] [place] [address] [address] [facility] [address] [place] [address] [phone] (Wo rk) Social History Tobacco Use Types [...] How often do you attend zoroastrian or anabaptist services? 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 - 03/02/2021 11:59 PM CDT DIAGNOSIS: 1. Malignant Neoplasm Of Pancreas (HCC) Attending Physician: Marilyn Ramon M.D. Treatment Intent: Curative Concomitant Therapy: Chemotherapy Single Plan Treatment Course: 1x Pancreas Plan ID Fractions Dose / Fraction (cGy) Dose Treated (cGy) Dose Planned (cGy) First Treatment Last Treatment Elapsed Days F1 Pancreas 200 5000 5000 01/25/2021 03/02/2021 36 Course Summary 01/25/2021 03/02/2021 36 Radiation Modality: Photons CLINICAL SUMMARY Mr. Adam Campbell completed radiation treatment as planned with interruptions. The course of treatment was tolerated well. The patient experienced toxicities of grade 1 fatigue and grade 2 pain during radiation treatment. TREATMENT RESPONSE: Response to treatment will be determined by post-treatment imaging and/or laboratory work. RECOMMENDED FOLLOW UP: Primary Medical Oncologist. Signed by: Nikki Purdy R.N., 03/08/2021 10:25 AM CDT [facility] [address] [place] [address] documented in this encounter Plan of Treatment Upcoming Encounters Date Type Specialty Care Team Description 06/22/2022 Lab Laboratory Medicine Maria Del Rosario Gomez AP RN, C.N.P., M.S. [address] [place] [address] [phone] (Mj godoy) 06/22/2022 Infusion Oncology Maria Del Rosario Gomez APRN, C.N .P., M.S. [address] [place] [address] 55 [phone] (Mj godoy) 06/29/2022 Lab Laboratory Medicine Maria Del Rosario Gomez AP RN, C.N.P., M.S. [address] [place] [address] 55 [phone] (Wo rk) 06/29/2022 Infusion Oncology Maria Del Rosario Gomez, GUERO, C.N .P., M.S. [address] [place], [place] 55 [phone] (Mj rk) documented as of this encounter Visit Diagnoses Diagnosis Malignant Neoplasm Of Pancreas (HCC) - P rimary documented in this encounter Care Teams Pegger Relationship Specialty Start Date End Date Elsewhere, Pcp PCP - General Family Medicine 08/12/20 documented as of this encounter
--- OUTSIDE RECORDS SUMMARY | 2022-06-18 16:12 | XMS_ITS | Encounter Summary ---
:1965 Author Organization [facility] Address [address] [place] [address] Care Team Providers Name Role Phone Elsewhere, Pcp Primary Care Provider Unavailable Reason for Visit Radiation Therapy (Routine) - Closed Specialty Diagnoses / Procedures Referred By Contact Refer red To Contact Diagnoses Malignant Neoplasm Of Pancreas (HCC) Lesia Silva M.D., Ph.D. [facility] Procedures Prior Auth Rad Tx [place] RADTN [place] DEL >=1 MEV COMPLEX [address] [place] [address] Referral ID Status Reason Start Date Expiration Date Visits Requ ested Visits Authorized [id number] Closed 01/25/2021 01/25/2022 30 30 Encounter Details Date Type Department Care Team Description 02/22/2021 Hospital Encounter Department of Radiation Cat Ramon I., Oncology in [place] [address] [facility] [address] [place] [phone] Social History Tobacco Use Types Packs/Day Years [...] How often do you attend sikh or islam services? 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 [id number]-vrjljksx-flvveuc Take 1-2 capsules by 120 capsule 0 [...] Del Rosario Gomez AP RN, C.N.P., M.S. [address] [place] [address] [place] 55 [phone] (Wo rk) 06/22/2022 Infusion Oncology Maria Del Rosario Gomez APRN, C.N .P., M.S. [address] [place] [address] 55 [phone] (Wo rk) 06/29/2022 Lab Laboratory Medicine Maria Del Rosario Gomez AP RN, C.N.P., M.S. [address] [place] [address] 55 [phone] (Wo rk) 06/29/2022 Infusion Oncology Maria Del Rosario Gomez APRN, C.N .P., M.S. [address] [place] [address] 55 [phone] (Wo rk) documented as of this encounter Visit Diagnoses Not on filedocumented in this encounter Care Teams Tractor Drill Operator Relationship Specialty Start Date End Date Elsewhere, Pcp PCP - General Family Medicine 08/12/20 documented as of this encounter
--- OUTSIDE RECORDS SUMMARY | 2022-06-18 16:12 | XMS_ITS | Encounter Summary ---
:1965 Author Organization [facility] Address [address] [place] [address] Care Team Providers Name Role Phone Elsewhere, Pcp Primary Care Provider Unavailable Reason for Visit Reason Comments Intake Assessment Encounter Details Date Type Department Care Team Description 03/09/2021 Clinical Communication Department of Wes Mantilla [facility] [address] [place] [address] [place] [address] [place], [place] [phone] (Work) [phone] Social History Tobacco Use Types Packs/Day Years [...] How often do you attend latter-day or temple services? 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 [address] [place] [address] 55 [phone] (Wo rk) 06/22/2022 Infusion Oncology Maria Del Rosario Gomez APRN, C.N .P., M.S. [address] [place] [address] 55 [phone] (Wo rk) 06/29/2022 Lab Laboratory Medicine Maria Del Rosario Gomez AP RN, C.N.P., M.S. [address] [place] [address] 55 [phone] (Wo rk) 06/29/2022 Infusion Oncology Maria Del Rosario Gomez APRN, C.N .P., M.S. [address] [place] [address] 55 [phone] (Wo rk) documented as of this encounter Visit Diagnoses Not on filedocumented in this encounter Care Teams Laboratory Mechanical Technician Relationship Specialty Start Date End Date Elsewhere, Pcp PCP - General Family Medicine 08/12/20 documented as of this encounter
--- OUTSIDE RECORDS SUMMARY | 2022-06-18 16:12 | XMS_ITS | Encounter Summary ---
:[address] [facility] Address [address] [place] [address] Care Team Providers Name Role Phone Elsewhere, Pcp Primary Care Provider Unavailable Reason for Visit Radiation Therapy (Routine) - Closed Specialty Diagnoses / Procedures Referred By Contact Refer red To Contact Diagnoses Malignant Neoplasm Of Pancreas (HCC) Lesia Silva M.D., Ph.D. [facility] Procedures Prior Auth Rad Tx [place] RADTN [place] DEL >=1 MEV COMPLEX [address] [place] [address] Referral ID Status Reason Start Date Expiration Date Visits Requ ested Visits Authorized [id number] Closed 01/25/2021 01/25/2022 30 30 Encounter Details Date Type Department Care Team Description 02/25/2021 Hospital Encounter Department of Radiation Cat Ramon I., Oncology in [place] [address] [facility] 18[address] [place] [phone] Social History Tobacco Use Types Packs/Day Years [...] often do you attend latter day or nondenominational services? 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 [id number]-aobbrufr-hnsvaxf Take 1-2 capsules by 120 capsule 0 [...] Gomez AP RN, C.N.P., M.S. [address] [place] [address] 55 [phone] (Mj godoy) 06/22/2022 Infusion Oncology Maria Del Rosario Gomez APRN, C.N .P., M.S. [address] [place] [address] 55 [phone] (Mj godoy) 06/29/2022 Lab Laboratory Medicine Maria Del Rosario Gomez AP RN, C.N.P., M.S. [address] [place] [address] 55 [phone] (Mj godoy) 06/29/2022 Infusion Oncology Maria Del Rosario Gomez APRN, C.N .P., M.S. [address] [place], [place] 55 [phone] (Wo rk) documented as of this encounter Visit Diagnoses Not on filedocumented in this encounter Care Teams Night Baker Relationship Specialty Start Date End Date Elsewhere, Pcp PCP - General Family Medicine 08/12/20 documented as of this encounter
--- OUTSIDE RECORDS SUMMARY | 2022-06-18 16:12 | XMS_ITS | Encounter Summary ---
:1965 Author Organization [facility] Address [address] [place] [address] Care Team Providers Name Role Phone Elsewhere, Pcp Primary Care Provider Unavailable Encounter Details Date Type Department Care Team Description 03/01/2021 Orders Only Department of Oncology in [place], [place] GUERO, C.N.P., M.S. [address] [facility] [address] [place] [address] [place], [place] [phone] (Wo rk) Social History Tobacco Use Types [...] How often do you attend mandaen or christianity services? 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 [address] [place] [address] [phone] (Wo rk) 06/22/2022 Infusion Oncology Maria Del Rosario Gomez APRN, C.N .P., M.S. [address] [place] [address] 55 [phone] (Wo rk) 06/29/2022 Lab Laboratory Medicine Maria Del Rosario Gomez AP RN, C.N.P., M.S. [address] [place] [address] 55 [phone] (Wo rk) 06/29/2022 Infusion Oncology Maria Del Rosario Gomze APRN, C.N .P., M.S. [address] [place] [phone] (Wo rk) documented as of this encounter Visit Diagnoses Not on filedocumented in this encounter Care Teams Cloth Shader Relationship Specialty Start Date End Date Elsewhere, Pcp PCP - General Family Medicine 08/12/20 documented as of this encounter
--- OUTSIDE RECORDS SUMMARY | 2022-06-18 16:12 | XMS_ITS | Encounter Summary ---
:1965 Author Organization [facility] Address [address] [place] [address] Care Team Providers Name Role Phone Elsewhere, Pcp Primary Care Provider Unavailable Encounter Details Date Type Department Care Team Description 03/02/2021 Orders Only Department of Oncology in [place], [place] GUERO, C.N.P., M.S. [address] [facility] [address] [place] [address] [place], [place] [phone] (Wo rk) Social History Tobacco Use Types [...] How often do you attend restoration or rastafarian services? 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 [address] [place] [address] [phone] (Wo rk) 06/22/2022 Infusion Oncology Maria Del Rosario Gomez APRN, C.N .P., M.S. [address] [place] [address] [phone] (Wo rk) 06/29/2022 Lab Laboratory Medicine Maria Del Rosario Gomez AP RN, C.N.P., M.S. [address] [place] [address] 55 [phone] (Wo rk) 06/29/2022 Infusion Oncology Maria Del Rosario Gomez APRN, C.N .P., M.S. [address] [place] [phone] (Wo rk) documented as of this encounter Visit Diagnoses Not on filedocumented in this encounter Care Teams Leasing Property Manager Relationship Specialty Start Date End Date Elsewhere, Pcp PCP - General Family Medicine 08/12/20 documented as of this encounter
--- OUTSIDE RECORDS SUMMARY | 2022-06-18 16:12 | XMS_ITS | Encounter Summary ---
:1965 Author Organization [facility] Address [address] [place] [address] Care Team Providers Name Role Phone Elsewhere, Pcp Primary Care Provider Unavailable Reason for Visit Radiation Therapy (Routine) - Closed Specialty Diagnoses / Procedures Referred By Contact Refer red To Contact Diagnoses Malignant Neoplasm Of Pancreas (HCC) Lesia Silva M.D., Ph.D. [facility] Procedures Prior Auth Rad Tx [place] RADTN [place] DEL >=1 MEV COMPLEX [address] [place] [address] Referral ID Status Reason Start Date Expiration Date Visits Requ ested Visits Authorized [id number] Closed 01/25/2021 01/25/2022 30 30 Encounter Details Date Type Department Care Team Description 02/24/2021 Hospital Encounter Department of Radiation Cat Ramon I., Oncology in [place] [address] [facility] [address] [place] [phone] Social History Tobacco Use Types Packs/Day Years [...] How often do you attend synagogue or jehovah's witness services? Never 01/15/2021 Do [...] at Date Recorded Male 08/18/2021 2:55 PM MEDICAID NURSE documented as of this encounter Medications at [...] times a day as needed for pain. [id number]-jawanjvx-eelhidh Take 1-2 capsules by 120 capsule 0 [...] Gomez AP RN, C.N.P., M.S. [address] [place] [address] [phone] (Mj godoy) 06/22/2022 Infusion Oncology Maria Del Rosario Gomez APRN, C.N .P., M.S. [address] [place] [address] [phone] (Mj godoy) 06/29/2022 Lab Laboratory Medicine Maria Del Rosario Gomez AP RN, C.N.P., M.S. [address] [place] [address] 55 [phone] (Mj godoy) 06/29/2022 Infusion Oncology Maria Del Rosario Gomez APRN, C.N .P., M.S. [address] [place], [place] 55 [phone] (Wo rk) documented as of this encounter Visit Diagnoses Not on filedocumented in this encounter Care Teams Supervisor Tree Trimming Relationship Specialty Start Date End Date Elsewhere, Pcp PCP - General Family Medicine 08/12/20 documented as of this encounter
--- OUTSIDE RECORDS SUMMARY | 2022-06-18 16:12 | XMS_ITS | Encounter Summary ---
:1965 Author Organization [facility] Address [address] [place] [address] Care Team Providers Name Role Phone Elsewhere, Pcp Primary Care Provider Unavailable Reason for Visit Radiation Therapy (Routine) - Closed Specialty Diagnoses / Procedures Referred By Contact Refer red To Contact Diagnoses Malignant Neoplasm Of Pancreas (HCC) Lesia Silva M.D., Ph.D. [facility] Procedures Prior Auth Rad Tx [place] RADTN [place] DEL >=1 MEV COMPLEX [address] [place] [address] Referral ID Status Reason Start Date Expiration Date Visits Requ ested Visits Authorized [id number] Closed 01/25/2021 01/25/2022 30 30 Encounter Details Date Type Department Care Team Description 03/01/2021 Hospital Encounter Department of Radiation Cat Ramon I., Oncology in [place] [address] [facility] [address] [place] [phone] Social History Tobacco Use Types Packs/Day Years [...] How often do you attend pentecostal or adventism services? 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 bzgjvd-kziayoky-tjklnxy Take 1-2 capsules by 120 capsule 0 [...] Gomez AP RN, C.N.P., M.S. [address] [place] [address] [phone] (Mj godoy) 06/22/2022 Infusion Oncology Maria Del Rosario Gomez APRN, C.N .P., M.S. [address] [place] [address] 55 [phone] (Mj godoy) 06/29/2022 Lab Laboratory Medicine Maria Del Rosario Gomez AP RN, C.N.P., M.S. [address] [place] [phone] (Mj godoy) 06/29/2022 Infusion Oncology Maria Del Rosario Gomez APRN, C.N .P., M.S. [address] [place], [place] 55 [phone] (Wo rk) documented as of this encounter Visit Diagnoses Not on filedocumented in this encounter Care Teams Regional Truck Driver Relationship Specialty Start Date End Date Elsewhere, Pcp PCP - General Family Medicine 08/12/20 documented as of this encounter
--- OUTSIDE RECORDS SUMMARY | 2022-06-18 16:12 | XMS_ITS | Encounter Summary ---
:1965 Author Organization [facility] Address [address] [place] [address] Care Team Providers Name Role Phone Elsewhere, Pcp Primary Care Provider Unavailable Reason for Visit Radiation Therapy (Routine) - Closed Specialty Diagnoses / Procedures Referred By Contact Refer red To Contact Diagnoses Malignant Neoplasm Of Pancreas (HCC) Lesia Silva M.D., Ph.D. [facility] Procedures Prior Auth Rad Tx [place] RADTN [place] DEL >=1 MEV COMPLEX [address] [place] [address] Referral ID Status Reason Start Date Expiration Date Visits Requ ested Visits Authorized [id number] Closed 01/25/2021 01/25/2022 30 30 Encounter Details Date Type Department Care Team Description 02/23/2021 Hospital Encounter Department of Radiation Cat Ramon I., Oncology in [place] [address] [facility] [address] [place] [phone] Social History Tobacco Use Types Packs/Day Years [...] er 01/15/2021 How often do you attend lutheran or islam services? 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 [id number] Take 1-2 capsules by 120 capsule 0 [...] Del Rosario Gomez AP RN, C.N.P., M.S. [address] [place] [address] [place] [phone] (Wo rk) 06/22/2022 Infusion Oncology Maria Del Rosario Gomez APRN, C.N .P., M.S. [address] [place] [address] [phone] (Wo rk) 06/29/2022 Lab Laboratory Medicine Maria Del Rosario Gomez AP RN, C.N.P., M.S. [address] [place] [address] [phone] (Wo rk) 06/29/2022 Infusion Oncology Maria Del Rosario Gomez APRN, C.N .P., M.S. [address] [place] [address] [phone] (Wo rk) documented as of this encounter Visit Diagnoses Not on filedocumented in this encounter Care Teams Processor Grain Relationship Specialty Start Date End Date Elsewhere, Pcp PCP - General Family Medicine 08/12/20 documented as of this encounter
--- OUTSIDE RECORDS SUMMARY | 2022-06-18 16:13 | XMS_ITS | Encounter Summary ---
:1965 Author Organization [facility] Address [address] [place] [address] Care Team Providers Name Role Phone Elsewhere, Pcp Primary Care Provider Unavailable Reason for Visit Reason Comments Return visit needed 02/22 Encounter Details Date Type Department Care Team Description 02/15/2021 Clinical Communication Department of Deborah Murray Retu rn visit needed Oncology in [place] 02/22 [place], [address] [place] [address] [place] [phone] [place], [place] [phone] (Work) [phone] Social History Tobacco Use Types Packs/Day Years [...] How often do you attend taoism or cheondoism services? 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 - 02/15/2021 11:04 AM CDT Looks like he's still getting radiation on 02/19? If so, we can see him in clinic on 02/19 and just adjust chemo to 02/22 documented in this encounter Plan of Treatment Upcoming Encounters Date Type Specialty Care Team Description 06/22/2022 Lab Laboratory Medicine Maria Del Rosario Gomez AP RN, C.N.P., M.S. [address] [place] [address] [phone] (Mj rk) 06/22/2022 Infusion Oncology Maria Del Rosario Gomez APRN, C.N .P., M.S. [address] [place] [address] [phone] (Wo rk) 06/29/2022 Lab Laboratory Medicine Maria Del Rosario Gomez AP RN, C.N.P., M.S. [address] [place] [address] [phone] (Mj rk) 06/29/2022 Infusion Oncology Maria Del Rosario Gomez APRN C.N .P., M.S. [address] [place] [address] [phone] (Mj rk) documented as of this encounter Visit Diagnoses Not on filedocumented in this encounter Care Teams Electroencephalogram Technologist Relationship Specialty Start Date End Date Elsewhere, Pcp PCP - General Family Medicine 08/12/20 documented as of this encounter
--- OUTSIDE RECORDS SUMMARY | 2022-06-18 16:13 | XMS_ITS | Encounter Summary ---
:1965 Author Organization [facility] Address [address] [place] [address] Care Team Providers Name Role Phone Elsewhere, Pcp Primary Care Provider Unavailable Reason for Visit Reason Comments Intake Assessment Encounter Details Date Type Department Care Team Description 02/17/2021 Clinical Communication Department of Deborah Murray Inta ke Assessment Oncology [place] [address] [facility] [address] [place] [phone] Social History Tobacco Use Types Packs/Day Years [...] How often do you attend sikhism or sikhism services? 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 documented in this encounter Plan of Treatment Upcoming Encounters Date Type Specialty Care Team Description 06/22/2022 Lab Laboratory Medicine Maria Del Rosario Gomez AP RN, C.N.P., M.S. [address] [place] [phone] (Mj godoy) 06/22/2022 Infusion Oncology Maria Del Rosario Gomez APRN, C.N .P., M.S. [address] [place] [address] [phone] (Mj godoy) 06/29/2022 Lab Laboratory Medicine Maria Del Rosario Gomez AP RN, C.N.P., M.S. [address] [place] [address] [phone] (Mj rk) 06/29/2022 Infusion Oncology Maria Del Rosario Gomez APRN, C.N .P., M.S. [address] [place] [address] [phone] (Mj godoy) documented as of this encounter Visit Diagnoses Not on filedocumented in this encounter Care Teams Technical Director Relationship Specialty Start Date End Date Elsewhere, Pcp PCP - General Family Medicine 08/12/20 documented as of this encounter
--- OUTSIDE RECORDS SUMMARY | 2022-06-18 16:13 | XMS_ITS | Encounter Summary ---
:1965 Author Organization [facility] Address [address] [place] [address] Care Team Providers Name Role Phone Elsewhere, Pcp Primary Care Provider Unavailable Reason for Visit Radiation Therapy (Routine) - Closed Specialty Diagnoses / Procedures Referred By Contact Refer red To Contact Diagnoses Malignant Neoplasm Of Pancreas (HCC) Lesia Silva M.D., Ph.D. [facility] Procedures Prior Auth Rad Tx [place] RADTN TX DEL >=1 MEV COMPLEX [address] [place] [address] Referral ID Status Reason Start Date Expiration Date Visits Requ ested Visits Authorized [id number] Closed 01/25/2021 01/25/2022 30 30 Encounter Details Date Type Department Care Team Description 02/16/2021 Hospital Encounter Department of Radiation Cat Ramon I., Oncology in [place] [address] [facility] [address] [place] [phone] Social History Tobacco Use Types Packs/Day Years [...] How often do you attend zoroastrian or gnosticism services? 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 [id number] Take 1-2 capsules by 120 capsule 0 [...] 1 tablet (4 mg 30 tablet 2 05/03/202102/24/2021 mg tablet total) by mouth every 8 [...] Gomez AP RN, C.N.P., M.S. [address] [place] [phone] (Mj godoy) 06/22/2022 Infusion Oncology Maria Del Rosario Gomez APRN, C.N .P., M.S. [address] [place] [address] [phone] (Mj godoy) 06/29/2022 Lab Laboratory Medicine Maria Del Rosario Gomez AP RN, C.N.P., M.S. [address] [place], [place] [phone] (Mj godoy) 06/29/2022 Infusion Oncology Maria Del Rosario Gomez APRN, C.N .P., M.S. [address] [place], [place] [phone] (Mj godoy) documented as of this encounter Visit Diagnoses Not on filedocumented in this encounter Care Teams Public Welfare 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
--- OUTSIDE RECORDS SUMMARY | 2022-06-18 16:13 | XMS_ITS | Encounter Summary ---
:1965 Author Organization [facility] Address [address] [place] [address] Care Team Providers Name Role Phone Elsewhere, Pcp Primary Care Provider Unavailable Encounter Details Date Type Department Care Team Description 02/15/2021 Lab Department of Infusion Maria Del Rosario Gomez, Malignant Neoplasm Of Pancreas (HCC) (Primary Dx); Therapy in [place], Pratik JACKNRiaz PRiaz, M.S. [facility] [address] [facility] [address] [place] [phone] (Wo rk) Social History Tobacco Use Types [...] How often do you attend jainism or rastafarian services? 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 [address] [place] [phone] (Mj rk) 06/22/2022 Infusion Oncology Maria Del Rosario Gomez APRN, C.N .P., M.S. [address] [place] [phone] (Wo rk) 06/29/2022 Lab Laboratory Medicine Maria Del Rosario Gomez AP RN, C.N.P., M.S. [address] [place] [address] [phone] (Mj rk) 06/29/2022 Infusion Oncology Maria Del Rosario Gomez APRN, C.N .P., M.S. [address] [place] [phone] (Mj rk) documented as of this encounter Procedures Procedure Name Priority Date/Time Associated Comments Diagnosis CBC WITH DIFFERENTIAL, Routine 02/15/2021 6:34 AM Malignant Ne oplasm Results for this B CDT Of Pancreas (HCC) procedure are in the results section. COMPREHENSIVE Routine 02/15/2021 6:34 AM Malignant Neoplasm Re sults for this METABOLIC PANEL, S/P CDT Of Pancreas (HCC) pr ocedure are in the results section. documented in this encounter Results (ABNORMAL) Comprehensive Metabolic Panel (02/15/2021 6:34 AM CDT) P athologist Signature Potassium, S 3.9 3.6 - 5.2 02/15/2021 DTL mmol/L 7:44 AM CDT Sodium, S 136 135 - 145 02/15/2021 DTL mmol/L 7:44 AM CDT Chloride, S 99 98 - 107 02/15/2021 DTL mmol/L 7:44 AM CDT Bicarbonate, S 26 22 - 29 02/15/2021 DTL mmol/L 7:44 AM CDT Anion Gap 11 7 - 15 02/15/2021 DTL 7:44 AM CDT BUN (Blood Urea 11 8 - 24 02/15/2021 DTL Nitrogen), S mg/dL 7:44 AM CDT Creatinine 0.84 0.74 - 02/15/2021 DTL 1.35 mg/dL 7:44 AM CDT eGFR-Non >90 >=60 02/15/2021 DTL Black/ mL/min/BSA 7:44 AM CDT Taiwanese Comment: ----ADDITIONAL INFORMATION---- Estimated GFR calculated using the 2009 CKD_EPI creatinine equation. eGFR-Black/ >90 >=60 mL/min/BSA 2020 7:44 AM CDT DTL Comment: ----ADDITIONAL INFORMATION---- Estimated GFR calculated using the 2009 CKD_EPI creatinine equation. Calcium, Total, S 9.6 8.6 - 10.0 mg/dL 02/15/2021 7:44 AM CDT DTL Glucose, S 158 (H) 70 - 140 mg/dL 02/15/2021 7:44 AM CDT D TL Protein, Total, S 7.3 6.3 - 7.9 g/dL 02/15/2021 7:44 A M CDT DTL Albumin, S 4.2 3.5 - 5.0 g/dL 02/15/2021 7:44 AM CDT D TL Aspartate Aminotransferase 18 8 - 48 U/L 02/15/2021 7 :44 AM CDT DTL (AST), S Alkaline Phosphatase, S 88 40 - 129 U/L 02/15/2021 7: 44 AM CDT DTL Alanine Aminotransferase 12 7 - 55 U/L 02/15/2021 7:4 4 AM CDT DTL (ALT), S Bilirubin, Total, S 0.4 <=1.2 mg/dL 02/15/2021 7:44 AM CDT DTL Specimen Anatomical Collection Method Collection Time Receive d Time (Source) Location / / Volume Laterality Blood (Blood, 02/15/2021 6:34 AM 02/16/20 6:51 Venous) CDT AM CDT Maria Del Rosario Laura Gomez APRN, C.N.P., M.S. LAB BLOOD ADD-ON Performing Organization Address City/State/ZIP Code Phon e Number [facility] - 200 [place], [place] [address] [facility] [place] [address] [facility] 200 [facility] (ABNORMAL) CBC with Differential, Blood (02/15/2021 6:34 AM CDT) [facility] Method Time Signature Hemoglobin 12.9 (L) 13.2 - 02/15/2021 DTL 16.6 g/dL 8:43 AM CDT Hematocrit 40.0 38.3 - 02/15/2021 DTL 48.6 % 8:43 AM CDT Erythrocytes 4.84 4.35 - 02/15/2021 DTL 5.65 8:43 AM CDT x10(12)/L MCV 82.6 78.2 - 02/15/2021 DTL 97.9 fL 8:43 AM CDT RBC Distrib Width 17.4 (H) 11.8 - 02/15/2021 DTL 14.5 % 8:43 AM CDT Platelet Count 397 (H) 135 - 317 02/15/2021 DTL x10(9)/L 8:43 AM CDT Leukocytes 5.5 3.4 - 9.6 02/15/2021 DTL x10(9)/L 8:43 AM CDT Neutrophils 4.23 1.56 - 02/15/2021 DTL 6.45 8:43 AM CDT x10(9)/L Lymphocytes 0.40 (L) 0.95 - 02/15/2021 DTL 3.07 8:43 AM CDT x10(9)/L Monocytes 0.75 0.26 - 02/15/2021 DTL 0.81 8:43 AM CDT x10(9)/L Eosinophils 0.06 0.03 - 02/15/2021 DTL 0.48 8:43 AM CDT x10(9)/L Basophils 0.03 0.01 - 02/15/2021 DTL 0.08 8:43 AM CDT x10(9)/L Specimen Anatomical Collection Method Collection Time Receive d Time (Source) Location / / Volume Laterality Blood (Blood, 02/15/2021 6:34 AM 02/16/20 6:53 Venous) CDT AM CDT Maria Del Rosario Gomez APRN, C.N.P., M.S. LAB BLOOD ADD-ON Performing Organization Address City/State/ZIP Code Phon e Number [facility] - [address] [place], [place] [address] [facility] [place] [address] [facility] [address] documented in this encounter Visit Diagnoses Diagnosis Malignant Neoplasm Of Pancreas (HCC) - P rimary Bacteremia documented in this encounter Administered Medications Inactive Administered Medications - up to 3 most recent administrations Medication Order MAR Action Action Date Dose Rate Site heparin flush 500 Units Given 02/15/2021 6:37 AM CDT 500 Units 500 Units, intra-catheter, As needed, line care, Starting on Mon02/15/21 at 0630, When no infusion to maintain patency: For IVAD accessed, not in use, and/or prior to hospital discharge, flush every 7 days after 0.9% preservative-free NaCL flush. For IVAD NOT accessed or used, flush every 4 weeks after 0.9% preservative-free NaCL flush. sodium chloride 0.9 % injection 10 mL Given 02/15/2021 6:35 AM CDT 10 mL 10 mL, intra-catheter, As needed, line care, Starting on Mon02/15/21 at 0630, When IVAD Accessed and in Use: Flush prior to and following infusion, between multiple consecutive infusions, and prior to blood sampling. sodium chloride 0.9 % injection 20 mL Given 02/15/2021 6:36 AM CDT 20 mL 20 mL, intra-catheter, As needed, line care, Starting on Mon02/15/21 at 0630, When IVAD Accessed and in Use: Flush post blood transfusion or post blood sampling. documented in this encounter Care Teams Risk Compliance Manager Relationship Specialty Start Date End Date Elsewhere, Pcp PCP - General Family Medicine 08/12/20 documented as of this encounter
--- OUTSIDE RECORDS SUMMARY | 2022-06-18 16:13 | XMS_ITS | Encounter Summary ---
:1965 Author Organization [facility] Address [address] [place] [address] Care Team Providers Name Role Phone Elsewhere, Pcp Primary Care Provider Unavailable Reason for Visit Radiation Therapy (Routine) - Closed Specialty Diagnoses / Procedures Referred By Contact Refer red To Contact Diagnoses Malignant Neoplasm Of Pancreas (HCC) Lesia Silva M.D., Ph.D. [facility] Procedures Prior Auth Rad Tx [place] RADTN [place] DEL >=1 MEV COMPLEX [address] [place] [address] Referral ID Status Reason Start Date Expiration Date Visits Requ ested Visits Authorized [id number] Closed 01/25/2021 01/25/2022 30 30 Encounter Details Date Type Department Care Team Description 02/17/2021 Hospital Encounter Department of Radiation Cat Ramon I., Oncology in [place] [address] [facility] [address] [place] [phone] Social History Tobacco Use Types Packs/Day Years [...] How often do you attend rastafarian or christianity services? 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 [id number] Take 1-2 capsules by 120 capsule 0 [...] Gomez AP RN, C.N.P., M.S. [address] [place] [phone] (Mj godoy) 06/22/2022 Infusion Oncology Maria Del Rosario Gomez APRN, C.N .P., M.S. [address] [place] [phone] (Mj godoy) 06/29/2022 Lab Laboratory Medicine Maria Del Rosario Gomez AP RN, C.N.P., M.S. [address] [place], [place] [phone] (Mj godoy) 06/29/2022 Infusion Oncology Maria Del Rosario Gomez APRN, C.N .P., M.S. [address] [place], [place] [phone] (Mj godoy) documented as of this encounter Visit Diagnoses Not on filedocumented in this encounter Care Teams Drying Oven Tender Relationship Specialty Start Date End Date Elsewhere, Pcp PCP - General Family Medicine 08/12/20 documented as of this encounter
--- OUTSIDE RECORDS SUMMARY | 2022-06-18 16:13 | XMS_ITS | Encounter Summary ---
:1965 Author Organization [facility] Address [address] [place] [address] Care Team Providers Name Role Phone Elsewhere, Pcp Primary Care Provider Unavailable Reason for Referral Outpatient (Routine) - Closed Specialty Diagnoses / Procedures Referred By Contact Refer red To Contact Oncology Deborah Murray M.B.B.S . [facility] 200 [place] [address] Referral ID Status Reason Start Date Expiration Date Visits Requ ested Visits Authorized [id number] Closed 02/19/2021 02/19/2022 1 1 MRI/CAT/PET Scan (Routine) - Closed Specialty Diagnoses / Procedures Referred By Contact Refer red To Contact Radiology Diagnoses Malignant Neoplasm Of Pancreas (HCC) Deborah Murray M.B.B.S. [facility] Procedures CT Abdomen Pelvis with IV Contrast ID CT ABD&PELVIS W CNTRST 200 [place] [address] Referral ID Status Reason Start Date Expiration Date Visits Requ ested Visits Authorized [id number] Closed 02/19/2021 02/19/2022 1 1 MRI/CAT/PET Scan (Routine) - Closed Specialty Diagnoses / Procedures Referred By Contact Refer red To Contact Radiology Diagnoses Malignant Neoplasm Of Pancreas (HCC) Deborah Murray M.B.B.S. [place] [place] [facility] Procedures CT Chest with IV Contrast ID CT THORAX W CNTRST 200 [place], [place] [phone] Referral ID Status Reason Start Date Expiration Date Visits Requ ested Visits Authorized [id number] Closed 02/19/2021 02/19/2022 1 1 Outpatient (Routine) - Closed Specialty Diagnoses / Procedures Referred By Contact Refer red To Contact Oncology Deborah Murray M.B.B.S . [facility] 200 [place], [place] [phone] Referral ID Status Reason Start Date Expiration Date Visits Requ ested Visits Authorized [id number] Closed 02/19/2021 02/19/2022 1 1 Reason for Visit Episode Based Medications (Routine) - Closed Specialty Diagnoses / Procedures Referred By Contact Refer red To Contact Diagnoses Malignant Neoplasm Of Pancreas (HCC) Deborah Murray M.B.B.S. [facility] Procedures [place] GEMCITABINE HCL 200 [facility] 200 [place] [phone] [place] [address] Referral ID Status Reason Start Date Expiration Date Visits Requ ested Visits Authorized [id number] Closed 01/15/2021 01/15/2022 12 12 Encounter Details Date Type Department Care Team Description 02/19/2021 Office Visit Department of Oncology Deborah Murray Malig nant Neoplasm Of in [place], Allen[place]S. Pancreas (HCC) (Primary [place] 200 [facility] Dx) [address] [place] [phone] Social History Tobacco Use Types Packs/Day Years [...] How often do you attend orthodox or shinto services? 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 - 02/19/2021 9:40 AM CDT SUBJECTIVE PRIMARY CARE PHYSICIAN ELSEWHERE, PCP LOCAL ONCOLOGIST No care team guide to display PRIMARY [place] ONCOLOGIST Deborah Murray M.B.BMaria Del Rosario Ng APRN, C.N.P., M.S. CHIEF COMPLAINT / REASON [...] a surgical candidate. He recommended palliative management. 01/20/2021 - Radiation Therapy Radiation Therapy Treatment Details (Noted on 01/15/2021) Site: Pancreas Technique: No technique specified Goal: Curative Planned Treatment Start Date: 01/20/2021 01/25/2021 - Chemotherapy Gemcitabine ( with Radiation ) Start Date: 01/25/2021 Interval history: Mr. Campbell presented for evaluation today accompanied by his . He reports progressive fatigue and decreased energy levels. He tried to ride his bike yesterday but was only able to do that for about10 minutes. When he was getting evaluated for his last radiation treatment on 02/17 was found to be orthostatic but we improved with IV hydration and was able to get radiation treatment the next day. He did have his tooth extracted a week ago and the procedure was uncomplicated. He has been having decreased oral intake which he attributes to decreased appetite. He reports that the food tastes good and he has no taste alterations. He has minimal nausea and no vomiting and his symptoms are controlled with the Zofran. He did not tolerate Zyprexa or Compazine. He is optimistic that his back pain has completely resolved and he has not been using any Dilaudid. His weight has decreased by about 5 kg from01/25 but is stable from 02/17. He did mention having a license for cannabis use and that he tried yesterday and it markedly improved his appetite. The following portions of the patient's history were reviewed and updated as appropriate: allergies,current medications, family history, medical history, social history, surgical history and problem list. REVIEW OF SYSTEMS Negative except as above. OBJECTIVE BP 117/80 (BP Location: Right arm, Patient Position: Sitting, Cuff Size: Regular) Pulse 74 Temp 36.7 ??C (Tympanic) Resp 15 Ht 179.2 cm Wt 65.4 kg SpO2 99% BMI 20.37 kg/m?? PHYSICAL EXAM Constitutional Appearance: Normal appearance. Comments: Cachectic HENT Head: Normocephalic and atraumatic. Mouth/Throat: Mouth: Mucous membranes are moist. Eyes Extraocular Movements: Extraocular movements intact. Conjunctiva/sclera: Conjunctivae normal. Cardiovascular Rate and Rhythm: Normal rate and regular rhythm. Heart sounds: No murmur heard. Pulmonary Effort: Pulmonary effort is normal. Breath sounds: Normal breath sounds. Abdominal General: Bowel sounds are normal. There is no distension. Palpations: Abdomen is soft. Tenderness: There is no abdominal tenderness. Musculoskeletal General: No swelling. Cervical back: Neck supple. Skin General: Skin is warm. Neurological General: No focal deficit present. Mental Status: He is alert and oriented to person, place, and time. Psychiatric Mood and Affect: Mood normal. LABORATORY DATA Lab data reviewed. RADIOLOGICAL DATA Radiology data reviewed. ASSESSMENT / PLAN # Locally advanced pancreatic cancer Mr. Campbell is a 55-year-old gentleman diagnosed with pancreatic adenocarcinoma in July of 2020 and received 1 cycle of neoadjuvant gemcitabine and Nab paclitaxel which was complicated by pancreatitis. He was evaluated by surgery in December 2020 and deemed not to be a surgical candidate, so he was started on treatment with chemoradiation with gemcitabine and radiation on 01/25/2021. His side effects from treatment include fatigue and decreased appetite. I encouraged oral intake and nutritional supplements and calorie counting. I will obtain a nutrition consult, but do not think we need to pursue alternative modes of enteral nutrition at this time. He is already following with palliative Care for his cancer related symptoms which include pain, anxiety, and nausea/vomiting. His nausea is controlledwith the Zofran, and his pain seems to have resolved. He reports his anxiety is not controlled with the Ativan and he will follow-up with palliative Care. He is very anxious about his prognosis and hasbeen told that he has about 6 months to live. I discussed with him that prognosis is derived from observations from clinical trials and that the number he was provided with is only an average derived from those studies, and that survival is variable even in patients with the same disease stage depending on patient characteristics, disease characteristics and treatment response. He does not have metastatic disease but his disease was deemed unresectable, so the aim of the current treatment is palliation. At this time, I encouraged him to maintain his weight and to increase his oral intake, and told him that we will proceed with the planned chemotherapy on 02/22 and 03/01 and re-evaluate his disease response with imaging after 6 weeks from completing radiation. At that time, we would be able to havemore informed discussions on prognosis. He was comfortable at the end of the conversation and more motivated. PATIENT EDUCATION Ready to learn, no apparent learning barriers were identified; learning preferences include listening. Explained diagnosis and treatment plan; patient expressed understanding of the content. ADMINISTRATIVE BILLING I personally spent over half of a total 50 minutes face to face with the patient in counseling and discussion and/or coordination of care as described above. Deborah Murray M.B.B.S. - 02/19/2021 9:40 AM CDT #1 Malignant Neoplasm Of Pancreas (HCC) This is a supervisory note for a follow-up visit. Adam Campbell was seen and evaluated by Dr. Forrester. I discussed with case with her and I did not see the patient. I concur with the assessment,evaluation, and recommendations stated in her note. The oncologic history is as below: Oncology History Malignant Neoplasm Of Pancreas (HCC) [...] a surgical candidate. He recommended palliative management. 01/20/2021 - Radiation Therapy Radiation Therapy Treatment Details (Noted on 01/15/2021) Site: Pancreas Technique: No technique specified Goal: Curative Planned Treatment Start Date: 01/20/2021 01/25/2021 - Chemotherapy Gemcitabine ( with Radiation ) Start Date: 01/25/2021 To summarize, patient is a 55 year old man with localized pancreas cancer who is not a surgical candidate due to comorbidities currently undergoing definitive concurrent chemoradiation with palliative intent. Patient felt fatigued and anorexic, and had been gradually losing weight. He had also been receiving IV fluid at [facility] under the care of Radiation Oncology. We did review the results of hisblood tests which are within treatment range with no significant cytopenia. He is scheduled for gemcitabine treatment on February 22, 2021. His radiation is scheduled to be completed by March 02, 2021. As such, we will continue with weekly gemcitabine treatment until March 01, 2021. We will refer him to seeNutrition with oral fluid and caloric intake. We will plan to see him 2 weeks after completion of radiation for toxicity check and supportive measures such as IV fluid as needed. We will also plan for a restaging scan about 6 weeks after completion of radiation documented in this encounter Plan of Treatment Upcoming Encounters Date Type Specialty Care Team Description 06/22/2022 Lab Laboratory Medicine Maria Del Rosario Gomez AP RN, C.N.P., M.S. [address] [place] [phone] (Mj rk) 06/22/2022 [facility]N .P., M.S. [address] [place] [phone] (Mj rk) 06/29/2022 Lab [facility], C.N.P., M.S. 200 [place], [place] [phone] (Mj rk) 06/29/2022 [facility] APR[facility], Remy.N .Pamela., M.S. [address] [place] [phone] (Mj godoy) Scheduled Referrals Name Type Priority Associated Diagnoses Order S [facility] Oncology office Outpatient Referral Routine Expec sally: visit (clinic) 03/12/2021, Expires: 02/20/2024 Oncology office Outpatient Referral Routine Expec sally: visit (clinic) 04/23/2021, Expires: 02/20/2024 documented as of this encounter Results Glucose, Fasting (04/27/2021 1:25 PM CDT) P athologist Signature Glucose, P 85 70 - 100 04/27/2021 DTL mg/dL 2:18 PM CDT Last Intake 5 hr 04/27/2021 DTL 2:00 PM CDT Specimen Anatomical Collection Method Collection Time Receive d Time (Source) Location / / Volume Laterality Blood (Blood, 04/27/2021 1:25 PM 04/27/20 2:00 Venous) CDT PM CDT Deborah VillaBRiazS. LAB BLOOD NON ADD-ON Performing Organization Address City/State/ZIP Code Phon e Number [facility] [address] [address] [facility] [place] [address] [facility] [address] [place] [address] (ABNORMAL) Comprehensive Metabolic Panel (04/27/2021 1:24 PM [...] 04/27/2021 DTL Black/ mL/min/BSA 5:[address] [facility] Comment: ----ADDITIONAL INFORMATION---- Estimated GFR calculated using [...] 04/27/20 1:59 Venous) CDT PM CDT Deborah Valera LAB BLOOD ADD-ON Performing Organization Address City/State/ZIP Code Phon e Number [facility] - 200 [place], [place] [address] [facility] [place] [address] [facility] [address] [facility] (ABNORMAL) CBC with Differential, Blood (04/27/2021 1:24 PM CDT) [facility] Method Time Signature Hemoglobin 11.9 (L) [...] 21 1:43 Venous) CDT PM CDT Deborah VillaBRiazS. LAB BLOOD ADD-ON Performing Organization Address City/[facility] Phon e Number [facility] - 200 [address] [place], [place] [address] [facility] [place] [address] [facility] 200 [facility] Carbohydrate Antigen 19-9 (CA 19-9) (04/27/2021 1:24 PM CDT) athologist Signature Carbohydrate Ag 10 <35 U/mL 04/28/2021 [facility] 19-9, S 9:24 AM CDT Comment: ----ADDITIONAL INFORMATION---- The testing method is an immunoenzymatic assay manufactured by [employer] and performed on the [employer] DxI 800. ? Values obtained with different assay met hods or kits may be different and cannot be used inte rchangeably. ? Test results cannot be interpreted as ab solute evidence for the presence or absence of malignant disease. Specimen Anatomical Collection Method Collection Time Receive d Time (Source) Location / / Volume Laterality Blood (Blood, 04/27/2021 1:24 PM 04/28/20 21 8:24 Venous) CDT AM CDT Deborah RussoSRiaz LAB BLOOD ADD-ON Performing Organization Address City/[facility] Phon e Number [facility] [address] [address] [place], [place] [address] [facility] [place] [address] Laboratory Medicine and Pathology [address] Abdomen Pelvis with IV Contrast (04/27/2021 [...] of the pancreas measuring approximately 2.3 cm (3147), similar to prior exam. Decreased parenchymal enhancement at the neck of t he pancreas (11/09/2024 and ) is more prominent than prior exam again [...] left pleural effusion and at electases. Deborah VillaB.S. IMG CT PROCEDURES Glucose, Fasting (03/12/2021 1:52 PM CDT) P athologist Signature Glucose, P 100 70 - 100 03/12/2021 DTL mg/dL 3:18 PM CDT Specimen Anatomical Collection Method Collection Time Receive d Time (Source) Location / / Volume Laterality Blood (Blood, 03/12/2021 1:52 PM 03/12/20 2:34 Venous) CDT PM CDT Deborah VillaBRiazS. LAB BLOOD NON ADD-ON Performing Organization Address City/State/[facility] Code Phon e Number [facility] - [address] [place], [place] [address] [facility] [place] [address] [facility] [address] (ABNORMAL) Comprehensive Metabolic Panel (03/12/2021 1:52 PM [...] 03/12/2021 DTL Black/ mL/min/BSA 3:[address] [facility] Comment: ----ADDITIONAL INFORMATION---- Estimated GFR calculated using [...] (ALT), 89 (H) 7 - 55 U/L 3:22 PM CDT DTL S Bilirubin, Total, S 0.2 <=1.2 mg/dL 03/12/2021 3:22 PM CDT DTL Specimen Anatomical Collection Method Collection Time Receive d Time (Source) Location / / Volume Laterality Blood (Blood, 03/12/2021 1:52 PM 03/12/20 2:35 Venous) CDT PM CDT Deborah Brizuela. LAB BLOOD ADD-ON Performing Organization Address City/State/ZIP Code Phon e Number [facility] - 200 [place], [place] [address] [facility] [place] [address] [facility] 200 [facility] (ABNORMAL) CBC with Differential, Blood (03/12/2021 1:52 PM CDT) [facility] gist Method Time Signature Hemoglobin 11.2 (L) 13.2 [...] 21 2:24 Venous) CDT PM CDT Deborah VillaBRiazSRiaz LAB BLOOD ADD-ON Performing Organization Address City/State/ZIP Code Phon e Number [facility] - [address] [place], [place] [address] [facility] [place] [address] [facility] [address] (ABNORMAL) CBC, Chemotherapy, No Alerts (03/01/2021 2:11 [...] 03/01/20 2:29 Venous) CDT PM CDT Deborah Valera LAB BLOOD ADD-ON Performing Organization Address City/State/ZIP Code Phon e Number [facility] - [address] [place] [address] [facility] [place] [address] [facility] [address] [facility] (ABNORMAL) Comprehensive Metabolic Panel (03/01/2021 2:10 PM CDT) athologist Signature Potassium, S 3.9 3.6 - [...] 03/01/2021 DTL Black/ mL/min/BSA 3:[address] [facility] Comment: ----ADDITIONAL INFORMATION---- Estimated GFR calculated using [...] 03/01/20 2:29 Venous) CDT PM CDT Deborah RussoS. 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
--- OUTSIDE RECORDS SUMMARY | 2022-06-18 16:13 | XMS_ITS | Encounter Summary ---
:1965 Author Organization [facility] Address [address] [place] [address] Care Team Providers Name Role Phone Elsewhere, Pcp Primary Care Provider Unavailable Reason for Visit Episode Based Medications (Routine) - Closed Specialty Diagnoses / Procedures Referred By Contact Refer red To Contact Diagnoses Malignant Neoplasm Of Pancreas (HCC) Deborah Murray M.B.B.S. [facility] Procedures [place] GEMCITABINE HCL 200 [address] [facility] [address] [place] [phone] [place] [phone] Referral ID Status Reason Start Date Expiration Date Visits Requ ested Visits Authorized [id number] Closed 01/15/2021 01/15/2022 12 12 Encounter Details Date Type Department Care Team Description 02/15/2021 Infusion Department of Oncology Ulises Cardenas Ma lignant Neoplasm Of Pancreas (HCC) (Primary Dx); in [facility] elke Roca Bacteremia [address] [place] [address] [address] [place] [phone] Social History Tobacco Use Types Packs/Day Years [...] How often do you attend christianity or evangelical services? 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 [address] [place] [phone] (Mj godoy) 06/22/2022 Infusion Oncology Maria Del Rosario Gomez APRN, C.N .P., M.S. [address] [place] [phone] (Mj godoy) 06/29/2022 Lab Laboratory Medicine Maria Del Rosario Gomez AP RN, C.N.P., M.S. [address] [place] [phone] (Mj godoy) 06/29/2022 Infusion Oncology Maria Del Rosario Gomez APRN, C.N Valerie., M.S. [address] [place], [place] [phone] (Wo rk) documented as of this encounter Visit Diagnoses Diagnosis Malignant Neoplasm Of Pancreas (HCC) - P rimary Bacteremia documented in this encounter Administered Medications Inactive Administered Medications - up to 3 most recent administrations Medication Order MAR Action Action Date Dose Rate Site gemcitabine 500 mg in NaCl New Bag 02/15/2021 9:48 AM CDT 500 mg 526 mL/hr 0.9% 263.15 mL IVPB (GEMZAR) 500 mg (rounded from 540 mg = 300 mg/m2 ? 1.8 m2 Order-specific BSA), intravenous, at 526 mL/hr, Administer over 30 Minutes, Once, On Mon02/15/21 at 0915, For 1 dose heparin flush 500 Units Given 02/15/2021 10:24 AM CDT 500 Units 500 Units, intra-catheter, As needed, line care, Starting on Mon02/15/21 at 0815, When no infusion to maintain patency: For IVAD accessed, not in use, and/or prior to hospital discharge, flush every 7 days after 0.9% preservative-free NaCL flush. For IVAD NOT accessed or used, flush every 4 weeks after 0.9% preservative-free NaCL flush. NaCl 0.9 % bolus 1,000 mL New Bag 02/15/2021 8:15 AM CDT 1,000 mL 1000 mL/hr 1,000 mL, intravenous, at 1,000 mL/hr, Administer over 1 Hours, Once, On Mon02/15/21 at 0815, For 1 dose ondansetron (PF) injection 8 mg (ZOFRAN) Given 02/15/2021 8:03 AM CDT 8 mg 8 mg, intravenous, Once, On Mon02/15/21 at 0815, For 1 dose sodium chloride 0.9 % injection 10 mL Given 02/15/2021 10:23 AM CDT 10 mL 10 mL, intra-catheter, As needed, line care, Starting on Mon02/15/21 at 0815, When IVAD Accessed and in Use: Flush prior to and following infusion, between multiple consecutive infusions, and prior to blood sampling. documented in this encounter Care Teams Cloth Mercerizing Supervisor Relationship Specialty Start Date End Date Elsewhere, Pcp PCP - General Family Medicine 08/12/20 documented as of this encounter
--- OUTSIDE RECORDS SUMMARY | 2022-06-18 16:13 | XMS_ITS | Encounter Summary ---
:1965 Author Organization [facility] Address [address] [place] [id number] Care Team Providers Name Role Phone Elsewhere, Pcp Primary Care Provider Unavailable Reason for Visit Episode Based Medications (Routine) - Closed Specialty Diagnoses / Procedures Referred By Contact Refer red To Contact Diagnoses Malignant Neoplasm Of Pancreas (HCC) Deborah Murray M.B.B.S. Rst Onc Rogo Procedures [place] GEMCITABINE HCL [address] [facility] [address] [place] [phone] [place] [address] Referral ID Status Reason Start Date Expiration Date Visits Requ ested Visits Authorized [id number] Closed 01/15/2021 01/15/2022 12 12 Encounter Details Date Type Department Care Team Description 02/11/2021 Lab Department of Infusion Ulises Cardenas Ma lignant Neoplasm Of Pancreas (HCC) (Primary Dx); Therapy in [facility] [address] [facility] [address] [place] [phone] (Wo rk) Social History Tobacco Use Types [...] How often do you attend caodaism or sabianism services? 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 [address] [place] [phone] (Mj godoy) 06/22/2022 Infusion Oncology Maria Del Rosario Gomez APRN, C.N .P., M.S. [address] [place] [address] [phone] (Mj godoy) 06/29/2022 Lab Laboratory Medicine Maria Del Rosario Gomez AP RN, C.N.P., M.S. [address] [place] [address] [phone] (Mj godoy) 06/29/2022 Infusion Oncology Maria Del Rosario Gomez APRN, C.N .P., M.S. [address] [place] [address] [phone] (Mj godoy) documented as of this encounter Procedures Procedure Name Priority Date/Time Associated Comments Diagnosis CBC WITH DIFFERENTIAL, Routine 02/11/2021 1:49 PM Malignant Ne oplasm Results for this B CDT Of Pancreas (HCC) procedure are in the results section. COMPREHENSIVE Routine 02/11/2021 1:49 PM Malignant Neoplasm Re sults for this METABOLIC PANEL, S/P CDT Of Pancreas (HCC) pr ocedure are in the results section. documented in this encounter Results (ABNORMAL) CBC with Differential, Blood (02/11/2021 1:49 PM CDT) [facility] Method Time Signature Hemoglobin 11.9 (L) 13.2 - 02/11/2021 DTL 16.6 g/dL 2:41 PM CDT Hematocrit 37.6 (L) 38.3 - 02/11/2021 DTL 48.6 % 2:41 PM CDT Erythrocytes 4.57 4.35 - 02/11/2021 DTL 5.65 2:41 PM CDT x10(12)/L MCV 82.3 78.2 - 02/11/2021 DTL 97.9 fL 2:41 PM CDT RBC Distrib Width 16.7 (H) 11.8 - 02/11/2021 DTL 14.5 % 2:41 PM CDT Platelet Count 196 135 - 317 02/11/2021 DTL x10(9)/L 2:41 PM CDT Leukocytes 3.9 3.4 - 9.6 02/11/2021 DTL x10(9)/L 2:41 PM CDT Neutrophils 2.99 1.56 - 02/11/2021 DTL 6.45 2:41 PM CDT x10(9)/L Lymphocytes 0.29 (L) 0.95 - 02/11/2021 DTL 3.07 2:41 PM CDT x10(9)/L Monocytes 0.54 0.26 - 02/11/2021 DTL 0.81 2:41 PM CDT x10(9)/L Eosinophils 0.09 0.03 - 02/11/2021 DTL 0.48 2:41 PM CDT x10(9)/L Basophils <0.03 0.01 - 02/11/2021 DTL 0.08 2:41 PM CDT x10(9)/L Specimen Anatomical Collection Method Collection Time Receive d Time (Source) Location / / Volume Laterality Blood (Blood, 02/11/2021 1:49 PM 02/12/20 2:27 Venous) CDT PM CDT Maria Del Rosario Gomez APRN, C.N.P., M.S. LAB BLOOD ADD-ON Performing Organization Address City/State/ZIP Code Phon e Number [facility] - 200 [place], [place] [address] [facility] [place] [address] Laboratories-[facility] [address] [facility] Comprehensive Metabolic Panel (02/11/2021 1:49 PM CDT) P athologist Signature Potassium, S 4.0 3.6 - 5.2 02/11/2021 DTL mmol/L 3:07 PM CDT Sodium, S 140 135 - 145 02/11/2021 DTL mmol/L 3:07 PM CDT Chloride, S 102 98 - 107 02/11/2021 DTL mmol/L 3:07 PM CDT Bicarbonate, S 27 22 - 29 02/11/2021 DTL mmol/L 3:07 PM CDT Anion Gap 11 7 - 15 02/11/2021 DTL 3:07 PM CDT BUN (Blood Urea 13 8 - 24 02/11/2021 DTL Nitrogen), S mg/dL 3:07 PM CDT Creatinine 0.79 0.74 - 02/11/2021 DTL 1.35 mg/dL 3:07 PM CDT eGFR-Non >90 >=60 02/11/2021 DTL Black/ mL/min/BSA 3:07 PM CDT Finnish Comment: ----ADDITIONAL INFORMATION---- Estimated GFR calculated using the 2009 CKD_EPI creatinine equation. eGFR-Black/ >90 >=60 mL/min/BSA 2020 3:07 PM CDT DTL Comment: ----ADDITIONAL INFORMATION---- Estimated GFR calculated using the 2009 CKD_EPI creatinine equation. Calcium, Total, S 9.0 8.6 - 10.0 mg/dL 02/11/2021 3:07 PM CDT DTL Glucose, S 120 70 - 140 mg/dL 02/11/2021 3:07 PM CDT D TL Protein, Total, S 7.3 6.3 - 7.9 g/dL 02/11/2021 3:07 P M CDT DTL Albumin, S 4.0 3.5 - 5.0 g/dL 02/11/2021 3:07 PM CDT D TL Aspartate Aminotransferase (AST), 15 8 - 48 U/L 02/11 3:07 PM CDT DTL S Alkaline Phosphatase, S 94 40 - 129 U/L 02/11/2021 3: 07 PM CDT DTL Alanine Aminotransferase (ALT), S 15 7 - 55 U/L 02/11 3:07 PM CDT DTL Bilirubin, Total, S 0.4 <=1.2 mg/dL 02/11/2021 3:07 PM CDT DTL Specimen Anatomical Collection Method Collection Time Receive d Time (Source) Location / / Volume Laterality Blood (Blood, 02/11/2021 1:49 PM 02/12/20 2:28 Venous) CDT PM CDT Ulises Cardenas M.D. LAB BLOOD ADD-ON Performing Organization Address City/State/ZIP Code Phon e Number [facility] - [address] [place], [place] [address] [facility] [place] [address] Laboratories-[facility] [address] documented in this encounter Visit Diagnoses Diagnosis Malignant Neoplasm Of Pancreas (HCC) - P rimary Bacteremia documented in this encounter Administered Medications Inactive Administered Medications - up to 3 most recent administrations Medication Order MAR Action Action Date Dose Rate Site heparin flush 500 Units Given 02/11/2021 1:51 PM CDT 500 Units 500 Units, intra-catheter, As needed, line care, Starting on Sandra 02/11/21 at 1339, When no infusion to maintain patency: For IVAD accessed, not in use, and/or prior to hospital discharge, flush every 7 days after 0.9% preservative-free NaCL flush. For IVAD NOT accessed or used, flush every 4 weeks after 0.9% preservative-free NaCL flush. sodium chloride 0.9 % injection 10 mL Given 02/11/2021 1:50 PM CDT 10 mL 10 mL, intra-catheter, As needed, line care, Starting on Sandra 02/11/21 at 1339, When IVAD Accessed and in Use: Flush prior to and following infusion, between multiple consecutive infusions, and prior to blood sampling. sodium chloride 0.9 % injection 20 mL Given 02/11/2021 1:51 PM CDT 20 mL 20 mL, intra-catheter, As needed, line care, Starting on Sandra 02/11/21 at 1339, When IVAD Accessed and in Use: Flush post blood transfusion or post blood sampling. documented in this encounter Care Teams Disability Manager Relationship Specialty Start Date End Date Elsewhere, Pcp PCP - General Family Medicine 08/12/20 documented as of this encounter
--- OUTSIDE RECORDS SUMMARY | 2022-06-18 16:13 | XMS_ITS | Encounter Summary ---
:[address] [facility] Address [address] [place] [address] Care Team Providers Name Role Phone Elsewhere, Pcp Primary Care Provider Unavailable Encounter Details Date Type Department Care Team Description 02/15/2021 Clinical Communication Department of [facility] Palliative Care in , RRiazNRiaz, [place], [place] [phone] [address] [facility] (Work) [place] [address] Social History Tobacco Use Types Packs/Day Years [...] How often do you attend christianity or religion services? 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 Adam Campbell is a 55 y.o. male with pancreatic adenocarcinoma [facility], pain and psychosocial support. He was last seen by Nan Noyola CNP on 02/11. I followed up with Mr. Campbell to assess pain and constipation. Reports pain to be ok with intermittent abdominal pain. He reports this pain is the same pain thathas been ongoing and wonders if some of it is gas. He has been taking 4 mg of Dilaudid as needed, yesterday he utilized this twice. He would rather take oxycodone which does not cause him to be as queazy as hydromorphone. Though he has been following recommendations to only take hydromorphone. Has 2 tablets of oxycodone left from previous script. Mr. Campbell picked up olanzapine today and I encouraged him to start this tonight at bedtime. He continues to take ondansetron prn and did take lorazepam this morning. I reiterated nausea plan of starting olanzapine 2.5 mg bid, ondansetron every eight hours prn, and STOP use of lorazepam. Next palliative care visit 03/29. PLAN Disposition/Recommendation: notified provider and awaiting recommendations Information/Education: patient/caller able to teach back Caller agreeable to plan of care: yes The following references were used: nursing clinical judgement ADDENDUM 02/15 1500 Discussed with Marcelina Gonzalez PA-C who recommends continuing hydromorphone versus switching to oxycodone. Nausea should improve over time. Again reiterated nausea treatment plan. Mr. Campbell indicatedunderstanding and is in agreement with plan. documented in this encounter Plan of Treatment Upcoming Encounters Date Type Specialty Care Team Description 06/22/2022 Lab Laboratory Medicine Maria Del Rosario Gomez AP RN, C.N.P., M.S. [address] [place] [phone] (Wo rk) 06/22/2022 Infusion Oncology Maria Del Rosario Gomez APRN, C.N .P., M.S. [address] [place] [phone] (Mj godoy) 06/29/2022 Lab Laboratory Medicine Maria Del Rosario Gomez AP RN, C.N.P., M.S. [address] [place] [phone] (Mj godoy) 06/29/2022 Infusion Oncology Maria Del Rosario Gomez APRN, C.N .P., M.S. [address] [place] [phone] (Mj godoy) documented as of this encounter Visit Diagnoses Not on filedocumented in this encounter Care Teams Concierge Manager Relationship Specialty Start Date End Date Elsewhere, Pcp PCP - General Family Medicine 08/12/20 documented as of this encounter
--- OUTSIDE RECORDS SUMMARY | 2022-06-18 16:13 | XMS_ITS | Encounter Summary ---
:1965 [address] [facility] Address [address] [place] [address] Care Team Providers Name Role Phone Elsewhere, Pcp Primary Care Provider Unavailable Reason for Visit Outpatient (Routine) - Closed Specialty Diagnoses / Procedures Referred By Contact Refer red To Contact Oncology Maria Del Rosario Gomez APRN, C.N.PRiaz, [facility] [address] [place] [address] Referral ID Status Reason Start Date Expiration Date Visits Requ ested Visits Authorized [id number] Closed 01/22/2021 01/22/2022 1 1 Encounter Details Date Type Department Care Team Description 02/11/2021 Office Visit Department of Oncology Wes Mantilla Ma Neoplasm Of in Randall Perdomo M.D. Pancreas (HCC) [place] [address] [facility] (Primary Dx) 200 [place] [phone] Social History Tobacco Use Types Packs/Day Years [...] How often do you attend hindu or jewish services? 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 - 02/11/2021 4:40 PM CDT SUBJECTIVE Assessment of tolerance combined modality therapy PRIMARY CARE PHYSICIAN ELSEWHERE, PCPMichael. LOCAL ONCOLOGIST No care team assembler to display PRIMARY [place] ONCOLOGIST Deborah Murray M.B.B.S. Maria Del Rosario [...] Campbell is seen in follow-up of his combined modality therapy for his locally advanced pancreatic cancer. Overall, Mr. Campbell notes that he is tolerating gemcitabine in radiation reasonably well. His main complaint is of fatigue. He notes no other significant side effects of the gemcitabine. As outlined in the Palliative Medicine consultative note from [place], Mr. Campbell has developed significant pain related to a dental issue. The following portions of the patient's history were reviewed and updated as appropriate: allergies,current medications, medical history and problem list. REVIEW OF SYSTEMS No recent fever flu-like illnesses OBJECTIVE There were no vitals taken for this visit. No data recorded PHYSICAL EXAM ECOG Score: 1 - symptomatic but completely ambulatory General: Alert and oriented LABORATORY DATA Lab data reviewed. RADIOLOGICAL DATA Radiology data reviewed. ASSESSMENT / PLAN #1 Malignant Neoplasm Of Pancreas (HCC) Mr. Campbell is seen part way through his combined modality therapy. At the current time he is tolerating the gemcitabine without significant side effects. However, given his current dental issue I did discuss the possibility of a slight delay in his next dose of gemcitabine should he be able to see a dentist tomorrow. Based on his laboratory tests from today there should be no concerns about proceedingwith any dental work as needed including the potential of a tooth extraction. PATIENT EDUCATION Ready to learn, no apparent [...] Del Rosario Gomez AP RN, C.N.P., M.S. [address] [place] [phone] (Wo rk) 06/22/2022 Infusion Oncology Maria Del Rosario Gomez APRN, C.N .P., M.S. [address] [place] [phone] (Wo rk) 06/29/2022 Lab Laboratory Medicine Maria Del Rosario Gomez AP RN, C.N.P., M.S. [address] [place] [phone] (Wo rk) 06/29/2022 Infusion Oncology Maria Del Rosario Gomez APRN, C.N .P., M.S. [address] [place] [phone] (Wo rk) documented as of this encounter Visit Diagnoses Diagnosis Malignant Neoplasm Of Pancreas (HCC) - P rimary documented in this encounter Care Teams Watchstander Relationship Specialty Start Date End Date Elsewhere, Pcp PCP - General Family Medicine 08/12/20 documented as of this encounter
--- OUTSIDE RECORDS SUMMARY | 2022-06-18 16:13 | XMS_ITS | Encounter Summary ---
:1965 Author Organization [facility] Address [address] [place] [address] Care Team Providers Name Role Phone Elsewhere, Pcp Primary Care Provider Unavailable Reason for Visit Reason Comments Medication Question Encounter Details Date Type Department Care Team Description 02/10/2021 Clinical Communication Department of [facility] Palliative Care in [place] P.ARiaz-[place] [address] [address] [facility] [address] [place] [phone] Social History Tobacco Use Types Packs/Day Years [...] How often do you attend taoism or anabaptism services? 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 - 02/10/2021 4:42 PM CDT Information Discussed PALLIATIVE CARE NURSING TELEPHONE CALL Adam Campbell is a 55 y.o. who is followed in the Palliative Care Clinic in the setting of pancreatic adenocarcinoma. Patient was seen by Dr. Disla and Dr. Sparrow on 01/11/21. Phone call today is regarding portal message for concern of tooth infection and opioid rotation. Mr. Campbell developed tooth pain two days ago. He is worried about a tooth infection. He reports having history of bad teeth. The pain radiates from the tooth to the ear. He denies fever, chills, rednessor swelling. It is not tender to the touch. Eating is painful. He believes the tooth needs extractedand worries how he will have it done amongst the many appointments he has the next couple of days. Mr. Campbell's back pain has improved. He stopped taking hydromorphone (diluadid) and resumed oxycodone. He believes the oxycodone dose is 5 mg. He takes oxycodone approximately 3 times a day. The hydromorphone (dilaudid) was making him sick and believes it was the opioid, not his chemotherapy. He is now feeling better having switched to oxycodone. The oxycodone is being utilized for his stomach pain. PLAN Educated patient on signs and symptoms of infection and to seek urgent medical attention if he develops fevers, chills, or new swelling to the area of toothache. Informed patient we will discuss pain medications at his visit tomorrow and not to make any additional changes prior to his appointment withus. Will update provider on new toothache to see any further recommendations for evaluation. Disposition/Recommendation: self-care appropriate at this time, patient encouraged to call back withquestions and recommended continue engagement in self-management activities Information/Education: patient/caller able to teach back Caller agreeable to plan of care: yes The following references were used: nursing clinical judgement and previous plan of care date: 01/11/21 documented in this encounter Plan of Treatment Upcoming Encounters Date Type Specialty Care Team Description 06/22/2022 Lab Laboratory Medicine Maria Del Rosario Gomez AP RN, C.N.P., M.S. [address] [place] [phone] (Wo rk) 06/22/2022 Infusion Oncology Maria Del Rosario Gomez APRN, C.N .P., M.S. [address] [place] [phone] (Wo rk) 06/29/2022 Lab Laboratory Medicine Maria Del Rosario Gomez AP RN, C.N.P., M.S. [address] [place] [address] [phone] (Wo rk) 06/29/2022 Infusion Oncology Maria Del Rosario Gomez APRN, C.N .P., M.S. [address] [place] [address] [phone] (Wo rk) documented as of this encounter Visit Diagnoses Not on filedocumented in this encounter Care Teams Reference Services Head Relationship Specialty Start Date End Date Elsewhere, Pcp PCP - General Family Medicine 08/12/20 documented as of this encounter
--- OUTSIDE RECORDS SUMMARY | 2022-06-18 16:13 | XMS_ITS | Encounter Summary ---
:1965 Author Organization [facility] Address [address] [place] [address] Care Team Providers Name Role Phone Elsewhere, Pcp Primary Care Provider Unavailable Reason for Referral Outpatient (Routine) - Closed Specialty Diagnoses / Procedures Referred By Contact Refer red To Contact Palliative Medicine Nan Noyola APRN, C.N.PRiaz [address] [place] [phone] Referral ID Status Reason Start Date Expiration Date Visits Requ ested Visits Authorized [id number] Closed 02/11/2021 02/11/2022 1 1 Scheduling Instructions Virtual okay if patient able Reason for Visit Outpatient (Routine) - Closed Specialty Diagnoses / Procedures Referred By Contact Refer red To Contact Palliative Medicine Romi Sparrow [place] M.D. 200 [place] [address] Referral ID Status Reason Start Date Expiration Date Visits Requ ested Visits Authorized [id number] Closed 01/11/2021 01/11/2022 1 1 Encounter Details Date Type Department Care Team Description 02/11/2021 Office Visit Department of Romi Sparrow M.D. [address] [place] [phone] Malignant Neoplasm Of Pancreas (HCC) (Pr mikeary Dx); Palliative Care in [place] GUERO Sanchez, C.N.P. [address] [place] [phone] Pain Cancer Associated; [place], [place] Palliative [facility]; [address] [facility] [place] [phone] Social History Tobacco Use Types Packs/Day Years [...] How often do you attend cheondoism or congregational services? 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 - 02/11/2021 3:00 PM CDT SUBJECTIVE CHIEF COMPLAINT/REASON FOR VISIT Adam Campbell is a 55 y.o. male with pancreatic adenocarcinoma who is followed in the outpatient Palliative Care Clinic for non-pain symptoms, pain and psychosocial support. Interval History: Since Mr. Campbell was last seen in palliative medicine one month ago, he has been undergoing chemoradiation to his pancreas tumor. Adam's back and abdominal pain has improved and he is no longer using opioid medication for this.His main concern today is right bottom tooth pain times 2 days. He has a history of needing teeth pulled and states that is what is needed and would like this done today at [facility]. He felt like the 4 mg of hydromorphone was too much so he tried 5 mg of oxycodone yesterday which he tolerated better. Today his pain is worse so he took a 4 mg hydromorphone tab a noon (about 2.5 hours ago) and states that he has not had improvement in his tooth pain. The pain is keeping him from eating and drinking. No fevers, but has had a couple of episodes of chills. No swelling of his mouth or cheeks. Continues to have nausea, especially on days after chemotherapy infusions. Taking zofran 8 mg every 8 hours and lorazepam 2-3 times per day with minimal relief of nausea. He does find some anti-anxietybenefit to the lorazepam. Is taking creon with meals. Compazine makes him feel like he is crawling out of my skin ROS: As per HPI and patient reported data otherwise reviewed and non-contributory in the course of the current encounter. [place] Scores Who completed this form?: Patient No Pain = 0 and Worst Pain = 10: 9 No Fatigue = 0 and Worst Fatigue = 10: 5 No Nausea = 0 and Worst Nausea = 10: 5 No Depression = 0 and Worst Depression = 10: 5 No Anxiety = 0 and Worst Anxiety = 10: 6 No Drowsiness = 0 and Worst Drowsiness = 10 : 7 No Shortness of Breath = 0 and Worst Shortness of Breath = 10: 8 Best Appetite = 0 and Worst Appetite = 10: 7 Best Feeling of Well Being = 0 and Worst Feeling of Well Being = 10: 5 Best Sleep = 0 and Worst Sleep = 10: 2 No Financial Distress (Distress/suffering experienced secondary to financial issues) = 0 and Worst Financial Distress = 10: 2 No Spiritual Pain (Pain deep in your soul/being that is not physical) = 0 and Worst Spiritual Pain =10: 0 Palliative Functional Assessment 80%- Full ambulation, Normal activity with effort and some evidence of disease, Full self-care, Normal or reduced intake, Full level of consciousness OBJECTIVE PHYSICAL EXAM Physical Exam General: Fatigued; no acute distress Eyes: Conjunctiva clear, sclera non-icteric Mouth: Mucous membranes moist, no mucosal lesions. Decayed teeth, gingivitis Lungs: non-labored breathing pattern. Musculoskeletal: Normal gait. . Psychiatric: Oriented X3, intact recent and remote memory, judgment and insight, congruent mood and affect. DIAGNOSTICS I have reviewed labs and ECG. ASSESSMENT / PLAN #1 Malignant Neoplasm Of Pancreas (HCC) #2 Pain Cancer Associated #3 Palliative Care Adam Campbell is a 55 y.o. male with pancreatic adenocarcinoma who is followed in the outpatient Palliative Care Clinic for non-pain symptoms, pain and psychosocial support. Mr. Campbell's main concern today is his tooth pain which is not related to his cancer. There are no signs of infection on exam and white blood cell count is normal, as such recommend that he seek care stevan dentist locally. Will notify Dr. Mantilla, Medical Oncology who will be seeing him today as this may impact his infusion tomorrow. We spent time discussing how the removal of the tooth would not impact his cancer treatment in the large scheme of things. From a pain control perspective, he may try taking the toradol instead of the hydromorphone to see if it is more helpful. If 4 mg is too much may take 1/2 tab (2 mg). He will NOT take oxycodone. Encouraged him to contact our office to discuss before making any changes. Anticipate that after the tooth is removed he will not have much for pain needs as his cancer pain has significantly improved with cancer treatment. For his nausea discussed use of olanzapine scheduled twice a day and use of zofran as needed and stopping the lorazepam. He was receptive of this change. Last qTC was 408. Anticipate that after treatment ends he will no longer need this medication either. Will have nursing staff reach out early next week to assess pain and nausea. Palliative clinic team based care provided with Jackie Brower . RECOMMENDATIONS Pain: Seek dentist for assessment and intervention of tooth pain. Trial Toradol for pain control in the interim. Opioid Summary ??? Opioid Need: This patient has a condition that necessitates treatment with an opioid for longer than 7 days. Additionally, a non-opioid alternative was not appropriate or inadequate to manage patient???s pain. ??? Diagnosis related to controlled substance prescribing: cancer related pain ??? [place] WAST[place] Review: We have reviewed the patient's record in the [place] prescription monitoring program February 11, 2021. ??? Opioid Toxicity Review: We have reviewed the risks of opioid therapy and completed an assessmentof toxicities. ??? Opioid Aberrant Use Concerns: None ??? Recommended Opioid Regimen as of February 11, 2021.: hydromorphone 2-4 mg every 3 hours PRN Nausea/Vomiting:Start Olanzapine 2.5 mg BID, use ondansetron 2.5 mg every 8 hours PRN. STOP using lorazepam Advance Care Planning: Will continue to focus on enhancing illness understanding while providing ongoing action oriented adaptive coping counseling. Advance Care Planning Lui states that he prefers that information is sugar coated and doesn't particularly like straight shooters, although he acknowledges that this information is important. He would like to know when his cancer has spread to his liver as he believes that this would signal that he would not have much time left. He shared that he has important things to do such as selling off model cars and figuring out finances for his . He hopes that the cancer will be stable for at least a couple of years. Thank you for the opportunity to see this patient. Patient has our contact information and understands to call with new/worsening symptoms or concerns. We will work alongside the primary outpatient team to address these issues. Palliative care outpatient clinic will continue to follow along. Follow up visit: provider 1 month, clinic visit Total time spent was 45 minutes Nan Noyola APRN, C.N.P. documented in this encounter Plan of Treatment Upcoming Encounters Date Type Specialty Care Team Description 06/22/2022 Lab Laboratory Medicine Maria Del Rosario Gomez AP RN, C.N.P., M.S. [address] [place], [place] [phone] (Wo rk) 06/22/2022 Infusion Oncology Maria Del Rosario Gomez APRN, C.N .P., M.S. [address] [place], [place] [phone] (Mj godoy) 06/29/2022 Lab Laboratory Medicine Maria Del Rosario Gomez AP RN, C.N.P., M.S. [address] [place] [phone] (Mj godoy) 06/29/2022 Infusion Oncology Maria Del Rosario Gomez APRN, C.N .P., M.S. [address] [place] [phone] (Mj godoy) Scheduled Referrals Name Type Priority Associated Order Schedule Diagnoses Palliative Care Outpatient Referral Routine Expec sally: office visit 03/13/2021 (clinic) (Approximate), Expires: 02/12/2024 documented as of this encounter Visit Diagnoses Diagnosis Malignant Neoplasm Of Pancreas (HCC) - P rimary Pain Cancer Associated Palliative Care Pain Teeth documented in this encounter Care Teams Pad Machine Operator Relationship Specialty Start Date End Date Elsewhere, Pcp PCP - General Family Medicine 08/12/20 documented as of this encounter
--- OUTSIDE RECORDS SUMMARY | 2022-06-18 16:13 | XMS_ITS | Encounter Summary ---
:1965 Author Organization [facility] Address [address] [place] [address] Care Team Providers Name Role Phone Elsewhere, Pcp Primary Care Provider Unavailable Reason for Visit Radiation Therapy (Routine) - Closed Specialty Diagnoses / Procedures Referred By Contact Refer red To Contact Diagnoses Malignant Neoplasm Of Pancreas (HCC) Lesia Silva M.D., Ph.D. [facility] Procedures Prior Auth Rad Tx [place] RADTN TX DEL >=1 MEV COMPLEX [address] [place] [address] Referral ID Status Reason Start Date Expiration Date Visits Requ ested Visits Authorized [id number] Closed 01/25/2021 01/25/2022 30 30 Encounter Details Date Type Department Care Team Description 02/18/2021 Hospital Encounter Department of Radiation Cat Ramon I., Oncology in [place] [address] [facility] [address] [place] [phone] Social History Tobacco Use Types Packs/Day Years [...] How often do you attend rastafari or zoroastrian services? 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 [id number]-pqkyeopr-mqafbca Take 1-2 capsules by 120 capsule 0 [...] Gomez AP RN, C.N.P., M.S. [address] [place] [phone] (Mj godoy) 06/22/2022 Infusion Oncology Maria Del Rosario Gomez APRN, C.N .P., M.S. [address] [place] [phone] (Mj godoy) 06/29/2022 Lab Laboratory Medicine Maria Del Rosario Gomez AP RN, C.N.P., M.S. [address] [place], [place] [phone] (Mj godoy) 06/29/2022 Infusion Oncology Maria Del Rosario Gomez APRN, C.N .P., M.S. [address] [place], [place] [phone] (Mj godoy) documented as of this encounter Visit Diagnoses Not on filedocumented in this encounter Care Teams Revenue Enforcement Agent Relationship Specialty Start Date End Date Elsewhere, Pcp PCP - General Family Medicine 08/12/20 documented as of this encounter
--- OUTSIDE RECORDS SUMMARY | 2022-06-18 16:13 | XMS_ITS | Encounter Summary ---
:1965 Author Organization [facility] Address [address] [place] [address] Care Team Providers Name Role Phone Elsewhere, Pcp Primary Care Provider Unavailable Encounter Details Date Type Department Care Team Description 02/15/2021 Orders Only Department of Oncology in [place], [place] GUERO, C.N.P., M.S. [address] [facility] [address] [place] [phone] [place], [place] [phone] (Wo rk) Social History Tobacco Use Types [...] How often do you attend moravian or evangelical services? 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 [address] [place] [phone] (Wo rk) 06/22/2022 Infusion Oncology Maria Del Rosario Gomez APRN, C.N .P., M.S. [address] [place] [phone] (Wo rk) 06/29/2022 Lab Laboratory Medicine Maria Del Rosario Gomez AP RN, C.N.P., M.S. [address] [place] [phone] (Wo rk) 06/29/2022 Infusion Oncology Maria Del Rosario Gomez APRN, C.N .P., M.S. [address] [place] [phone] (Wo rk) documented as of this encounter Visit Diagnoses Not on filedocumented in this encounter Care Teams Gas Pumping Station Helper Relationship Specialty Start Date End Date Elsewhere, Pcp PCP - General Family Medicine 08/12/20 documented as of this encounter
--- OUTSIDE RECORDS SUMMARY | 2022-06-18 16:13 | XMS_ITS | Encounter Summary ---
:1965 Author Organization [facility] Address [address] [place] [address] Care Team Providers Name Role Phone Elsewhere, Pcp Primary Care Provider Unavailable Reason for Referral Outpatient (Routine) - Closed Specialty Diagnoses / Procedures Referred By Contact Refer red To Contact Diagnoses Malignant Neoplasm Of Pancreas (HCC) Raymond Denise M.D. [address] [place] [address] Referral ID Status Reason Start Date Expiration Visits Visits Date Requested Authorized [id number] Closed Patient 02/17/2021 02/17/2022 1 1 Preference Radiation Therapy (Routine) - Closed Specialty Diagnoses / Procedures Referred By Contact Refer red To Contact Diagnoses Malignant Neoplasm Of Pancreas (HCC) Marilyn Ramon M.D. [facility] Procedures Management Visit [address] [place] [address] Referral ID Status Reason Start Date Expiration Date Visits Requ ested Visits Authorized [id number] Closed 01/18/2021 01/18/2022 10 10 Reason for Visit Radiation Therapy (Routine) - Closed Specialty Diagnoses / Procedures Referred By Contact Refer red To Contact Diagnoses Malignant Neoplasm Of Pancreas (HCC) Marilyn Ramon M.D. [facility] Procedures Management Visit [address] [place] [phone] Referral ID Status Reason Start Date Expiration Date Visits Requ ested Visits Authorized [id number] Closed 01/18/2021 01/18/2022 10 10 Encounter Details Date Type Department Care Team Description 02/17/2021 Hospital Encounter Department of Raymond Rehman (Primary Dx); Radiation Oncology Chanelle Sanchez Malignant Neoplasm Of Pancreas (HCC) in [place], [facility] [address] [place], [place] [address] [facility] [address] [place], [place] [phone] (Work) [phone] Social History Tobacco Use Types Packs/Day Years [...] How often do you attend zoroastrian or quaker services? 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 pqnbpt-ggjiizux-pwvkyon Take 1-2 capsules by 120 capsule 0 [...] 1 tablet (8 mg 30 tablet 3 /1 03/202108/16/2021 mg tabletIndications: total) by mouth Malignant Neoplasm Of every 8 (eight) Pancreas (HCC) hours as needed for nausea or vomiting. documented as of this encounter Progress Notes Raymond Rehman M.D. - 02/17/2021 11:15 AM CDT SUBJECTIVE REASON FOR VISIT Evaluation for side effects while receiving radiation treatment for 1. Hypotension 2. Malignant Neoplasm Of Pancreas (HCC) SUPERVISED BY: Raymond Rehman M.D. ([id number]) HISTORY OF PRESENT ILLNESS Mr. Adam Campbell is a 55 y.o. male with an unresectable pancreatic cancer who has received minimal chemotherapy due to poor tolerance and recurrent cholangitis. He is now undergoing definitive radiation with weekly gemcitabine that will be delivered in [employer]. Treatment Course: 1x Pancreas Plan ID Fractions Dose / Fraction (cGy) Dose Treated (cGy) Dose Planned (cGy) First Treatment Last Treatment Elapsed Days F1 Pancreas [phone] 01/25/2021 02/17/2021 Course Summary 01/25/2021 02/17/2021 The patient was seen and examined today with Dr. Rehman. The patient reports that he had tooth extraction done this past Monday. Therefore he has not been eating and drinking as well due to dental issue prior to Monday. He is trying to catch up now that he is feeling better after extraction. He does feel dizzy today and for the past 4 days. He is not taking Oxycodone or Dilaudid. He rates his pain at a 0 out of 10. He had 1 episode of diarrhea recently. Hedenies fevers, chills or vomiting. He takes Zofran every 8 hours and reports minimal to mild nausea. PATIENT REPORTED SYMPTOM SCREEN FATIGUE (Scale: 0 = no fatigue; 10 = worst fatigue you can imagine): 5 PAIN (Scale: 0 = no pain; 10 = worst pain you can imagine): 0 OVERALL QUALITY OF LIFE (Scale: 0 = as bad as can be; 10 = as good as can be): OBJECTIVE BP 102/86 Pulse (!) 150 Temp 36.4 ??C (Temporal) Wt 62.7 kg BMI 19.55 kg/m?? PHYSICAL EXAM General: Alert and oriented in no apparent distress. ASSESSMENT / PLAN #1 Unresectable Stage IB, T2 N0 M0 pancreatic adenocarcinoma, s/p neoadjuvant chemotherapy #2 Definitive radiation therapy along with weekly gemcitabine initiated on January 25, 2021; anticipatedcompletion on March 01, 2021 Patient is hypotensive and dizzy today. We have scheduled 1 L of .9 normal saline today at [facility]. If patient is orthostatic after 1 L then 2nd L of .9 normal saline will be administered. We are encouraged to hear that patient has been able to increase his oral intake recently now that heis recovering from dental extraction. We will continue to monitor closely. He will contact us with any questions or concerns. We will continue with radiation treatment as planned. Signed by: Marylou Vasquez R.N. 02/17/2021 12:30 PM CDT I saw and evaluated the patient and participated in the patel portions of the service. I reviewed the documentation of Marylou Vasquez R.N. and agree with the findings and plan. The patient appears tired. He is here with his . He is orthostatic, so we have ordered IV fluids to be delivered at [facility]. He will continue with treatment as planned. Signed by: Raymond Rehman M.D. 02/17/2021 6:54 PM CDT [facility] [address] [place] [address] documented in this encounter Plan of Treatment Upcoming Encounters Date Type Specialty Care Team Description 06/22/2022 Lab Laboratory Medicine Maria Del Rosario Gomez AP RN, C.N.P., M.S. [address] [place] [phone] (Wo rk) 06/22/2022 Infusion Oncology Maria Del Rosario Gomez APRN, C.N .P., M.S. [address] [place] [phone] (Mj rk) 06/29/2022 Lab Laboratory Medicine Maria Del Rosario Gomez AP RN, C.N.P., M.S. [address] [place] [phone] (Mj rk) 06/29/2022 Infusion Oncology Maria Del Rosario Gomez APRN, C.N .P., M.S. [address] [place] [phone] (Mj rk) Scheduled Orders Name Type Priority Associated Diagnoses Order S chedule Management Visit Radiation Oncology Routine Malignant Neoplasm Once for 1 Of Pancreas (HCC) Occurrence s starting 02/17/2021 unti l 02/17/2021 Scheduled Referrals Name Type Priority Associated Diagnoses Order S chedule External referral Outpatient Referral Routine Malignant Neopla sm Ordered: ancillary Of Pancreas (HCC ) 02/17/2021 (non-Huerta) Hypotension documented as of this encounter Visit Diagnoses Diagnosis Hypotension - Primary Malignant Neoplasm Of Pancreas (HCC) documented in this encounter Care Teams Tableau Architect Relationship Specialty Start Date End Date Elsewhere, Pcp PCP - General Family Medicine 08/12/20 documented as of this encounter
--- OUTSIDE RECORDS SUMMARY | 2022-06-18 16:13 | XMS_ITS | Encounter Summary ---
:1965 Author Organization [facility] Address [address] [place] [address] Care Team Providers Name Role Phone Elsewhere, Pcp Primary Care Provider Unavailable Reason for Visit Radiation Therapy (Routine) - Closed Specialty Diagnoses / Procedures Referred By Contact Refer red To Contact Diagnoses Malignant Neoplasm Of Pancreas (HCC) Lesia Silva M.D., Ph.D. [facility] Procedures Prior Auth Rad Tx [place] RADTN TX DEL >=1 MEV COMPLEX [address] [place] [address] Referral ID Status Reason Start Date Expiration Date Visits Requ ested Visits Authorized [id number] Closed 01/25/2021 01/25/2022 30 30 Encounter Details Date Type Department Care Team Description 02/15/2021 Hospital Encounter Department of Radiation Cat Ramon I., Oncology in [place] [address] [facility] [address] [place] [phone] Social History Tobacco Use Types Packs/Day Years [...] How often do you attend confucianist or protestant services? 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 [id number]-zdhzrpsc-pnyyfab Take 1-2 capsules by 120 capsule 0 [...] Gomez AP RN, C.N.P., M.S. [address] [place] [phone] (Mj godoy) 06/22/2022 Infusion Oncology Maria Del Rosario Gomez APRN, C.N .P., M.S. [address] [place] [phone] (Mj godoy) 06/29/2022 Lab Laboratory Medicine Maria Del Rosario Gomez AP RN, C.N.P., M.S. [address] [place], [place] [phone] (Mj godoy) 06/29/2022 Infusion Oncology Maria Del Rosario Gomez APRN, C.N .P., M.S. [address] [place], [place] [phone] (Mj godoy) documented as of this encounter Visit Diagnoses Not on filedocumented in this encounter Care Teams Director Of Outside Sales Relationship Specialty Start Date End Date Elsewhere, Pcp PCP - General Family Medicine 08/12/20 documented as of this encounter
--- OUTSIDE RECORDS SUMMARY | 2022-06-18 16:13 | XMS_ITS | Encounter Summary ---
:1965 Author Organization [facility] Address [address] [place] [address] Care Team Providers Name Role Phone Elsewhere, Pcp Primary Care Provider Unavailable Reason for Visit Reason Comments Treatment Questions Encounter Details Date Type Department Care Team Description 02/17/2021 Clinical Communication Department of Mame Sparrow Questions Palliative Care in Georgie Rivero [place], [facility] [address]st [place], [place] [address] [facility] [address] [place], [place] [phone] (Work) [phone] Social History Tobacco Use Types Packs/Day Years [...] How often do you attend restorationist or denominational services? 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 [address] [place] [address] [phone] (Wo rk) 06/22/2022 Infusion Oncology Maria Del Rosario Gomez APRN, C.N .P., M.S. [address] [place] [address] [phone] (Wo rk) 06/29/2022 Lab Laboratory Medicine Maria Del Rosario Gomez AP RN, C.N.P., M.S. [address] [place] [address] [phone] (Wo rk) 06/29/2022 Infusion Oncology Maria Del Rosario Gomez APRN, C.N .P., M.S. [address] [place] [address] [phone] (Wo rk) documented as of this encounter Visit Diagnoses Not on filedocumented in this encounter Additional Health Concerns Infection Onset Date Last Indicated Resolved Time COVID19 Pending 03/19/2021 03/19/2021 03/19/2021 3:24 AM CDT documented as of this encounter Care Teams Plaster Die Maker Relationship Specialty Start Date End Date Elsewhere, Pcp PCP - General Family Medicine 08/12/20 documented as of this encounter
--- OUTSIDE RECORDS SUMMARY | 2022-06-18 16:13 | XMS_ITS | Encounter Summary ---
:1965 Author Organization [facility] Address [address] [place] [address] Care Team Providers Name Role Phone Elsewhere, Pcp Primary Care Provider Unavailable Reason for Visit Radiation Therapy (Routine) - Closed Specialty Diagnoses / Procedures Referred By Contact Refer red To Contact Diagnoses Malignant Neoplasm Of Pancreas (HCC) Lesia Silva M.D., Ph.D. [facility] Procedures Prior Auth Rad Tx [place] RADTN [place] DEL >=1 MEV COMPLEX 200 [address] [place] [address] Referral ID Status Reason Start Date Expiration Date Visits Requ ested Visits Authorized [id number] Closed 01/25/2021 01/25/2022 30 30 Encounter Details Date Type Department Care Team Description 02/11/2021 Hospital Encounter Department of Radiation Cat Ramon I., Oncology in [place] 200 [address] [facility] 18[address] [place] [phone] Social History Tobacco Use Types Packs/Day Years [...] How often do you attend uatsdin or zoroastrianism services? 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 ofkbyx-holwjhmc-kuxxjlh Take 1-2 capsules by 120 capsule 0 [...] Gomez AP RN, C.N.P., M.S. [address] [place] [address] 55 [phone] (Mj godoy) 06/22/2022 Infusion Oncology Maria Del Rosario Gomez APRN, C.N .P., M.S. [address] [place] [address] [phone] (Mj godoy) 06/29/2022 Lab Laboratory Medicine Maria Del Rosario Gomez AP RN, C.N.P., M.S. [address] [place], [place] 55 [phone] (Mj godoy) 06/29/2022 Infusion Oncology Maria Del Rosario Gomez APRN, C.N .P., M.S. 200 [address] [place], [place] 55 [phone] (Mj godoy) documented as of this encounter Visit Diagnoses Not on filedocumented in this encounter Care Teams Massage Coordinator Relationship Specialty Start Date End Date Elsewhere, Pcp PCP - General Family Medicine 08/12/20 documented as of this encounter
--- OUTSIDE RECORDS SUMMARY | 2022-06-18 16:13 | XMS_ITS | Encounter Summary ---
:1965 Author Organization [facility] Address [address] [place] [address] Care Team Providers Name Role Phone Elsewhere, Pcp Primary Care Provider Unavailable Encounter Details Date Type Department Care Team Description 02/12/2021 Orders Only Department of Gabbi Parry plasm Of Oncology in Cipriano Peterson Pancreas (HCC) [place], [place] 200 [facility] (Primary Dx) 200 [place] [phone] Social History Tobacco Use Types Packs/Day Years [...] How often do you attend adventist or taoist services? 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 [address] [place] [address] [phone] (Wo rk) 06/22/2022 [facility] [address] [place] [address] [phone] (Wo rk) 06/29/2022 Lab Laboratory Medicine Maria Del Rosario Gomez AP RN, C.N.P., M.S. [address] [place] [address] [phone] (Wo rk) 06/29/2022 Infusion Oncology Maria Del Rosario Gomez APRN, C.N .P., M.S. [address] [place] [address] [phone] (Wo rk) documented as of this encounter Results (ABNORMAL) Comprehensive Metabolic Panel (02/15/2021 6:34 AM CDT) athologist Signature Potassium, S 3.9 3.6 [...] 02/15/2021 DTL Black/ mL/min/BSA 7:44 AM CDT Mauritanian Comment: ----ADDITIONAL INFORMATION---- Estimated GFR calculated using [...] AM 02/16/20 6:51 Venous) CDT AM CDT Remy Willson APRN.N.P., M.S. LAB BLOOD ADD-ON Performing Organization Address City/State/ZIP Code Phon e Number [facility] - 200 [place], [place] [address] [facility] [place] [address] [facility] 200 [address] [facility] (ABNORMAL) CBC with Differential, Blood (02/15/2021 6:34 AM CDT) [facility] gist Method Time Signature Hemoglobin 12.9 (L) 13.2 [...] Laterality Blood (Blood, 02/15/2021 6:34 AM 02/16/20 21 6:53 Venous) CDT AM CDT Maria Del Rosario Gomez APRN C.N.P., M.S. LAB BLOOD ADD-ON Performing Organization Address City/State/ZIP Code Phon e Number [facility] - [address] [place], [place] [address] [facility] [place] [address] [facility] [address] documented in this encounter Visit Diagnoses Diagnosis Malignant Neoplasm Of Pancreas (HCC) - P rimary documented in this encounter Care Teams Staffing Mgr Relationship Specialty Start Date End Date Elsewhere, Pcp PCP - General Family Medicine 08/12/20 documented as of this encounter
--- OUTSIDE RECORDS SUMMARY | 2022-06-18 16:13 | XMS_ITS | Encounter Summary ---
:1965 Author Organization [facility] Address [address] [place] [address] Care Team Providers Name Role Phone Elsewhere, Pcp Primary Care Provider Unavailable Encounter Details Date Type Department Care Team Description 02/11/2021 Clinical Communication Department of Lisa, Palliative Care in [place], [place] 200 [address] [facility] [address] [place] [address] [phone] Social History Tobacco Use Types Packs/Day Years [...] How often do you attend zoroastrianism or episcopal services? 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 [address] [place] [address] [phone] (Wo rk) 06/22/2022 Infusion Oncology Maria Del Rosario Gomez APRN, C.N .P., M.S. [address] [place] [address] [phone] (Wo rk) 06/29/2022 Lab Laboratory Medicine Maria Del Rosario Gomez AP RN, C.N.P., M.S. [address] [place] [address] [phone] (Wo rk) 06/29/2022 Infusion Oncology Maria Del Rosario Gomez APRN, C.N .P., M.S. [address] [place] [address] [phone] (Wo rk) documented as of this encounter Visit Diagnoses Not on filedocumented in this encounter Care Teams Fish Farm Laborer Relationship Specialty Start Date End Date Elsewhere, Pcp PCP - General Family Medicine 08/12/20 documented as of this encounter
--- OUTSIDE RECORDS SUMMARY | 2022-06-18 16:14 | XMS_ITS | Encounter Summary ---
:1965 Author Organization [facility] Address [address] [place] [address] Care Team Providers Name Role Phone Elsewhere, Pcp Primary Care Provider Unavailable Reason for Visit Radiation Therapy (Routine) - Closed Specialty Diagnoses / Procedures Referred By Contact Refer red To Contact Diagnoses Malignant Neoplasm Of Pancreas (HCC) Lesia Silva M.D., Ph.D. [facility] Procedures Prior Auth Rad Tx [place] RADTN [place] DEL >=1 MEV COMPLEX 200 [address] [place] [address] Referral ID Status Reason Start Date Expiration Date Visits Requ ested Visits Authorized [id number] Closed 01/25/2021 01/25/2022 30 30 Encounter Details Date Type Department Care Team Description 01/29/2021 Hospital Encounter Department of Radiation [facility] Ramon I[facility] [place] 200 [address] [facility] 18[address] [place] [phone] Social History Tobacco Use Types Packs/Day Years [...] How often do you attend mosque or adventist services? 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 HYDROmorphone Take 1-1.5 tablets 90 tablet 0 01/20/2021 (DILAUDID) 4 mg (4-6 mg total) by tabletIndications: mouth every 3 Chronic Pain/Nonacute (three) hours as Pain needed for pain Indication: Chronic Pain/Nonacute Pain. HYDROmorphone Take 1-1.5 tablets 135 tablet 0 02/01/2021 (DILAUDID) 4 mg (4-6 mg total) by tabletIndications: mouth every 3 Chronic Pain/Nonacute (three) hours as Pain needed for pain Indication: Chronic Pain/Nonacute Pain. ketorolac (TORADOL) 10 Take 1 tablet (10 mg 28 tablet 0 04/01/2021 mg tablet total) by mouth 2 (two) times a day as needed for pain. idlodb-wuiebrew-easzbri Take 1-2 capsules by 120 capsule 0 0 01/11/2021 03/03/2021 (CREON) mouth as needed for 24,000-76,000-120,000 snacks. Take [address] capsule capsule with snacks, take 2 capsule with meals LORazepam (Ativan) 0.5 Take 1 tablet (0.5 20 tablet 0 01/1103/01/2021 mg tablet mg total) by mouth 2 (two) times a day as needed for anxiety. ondansetron (ZOFRAN) 4 Take 1 tablet (4 [...] 1 tablet (8 mg 30 tablet 3 /03/202108/16/2021 mg tabletIndications: total) by mouth Malignant Neoplasm Of every 8 (eight) Pancreas (HCC) hours as needed for nausea or vomiting. documented as of this encounter Plan of Treatment Upcoming Encounters Date Type Specialty Care Team Description 06/22/2022 Lab Laboratory Medicine Maria Del Rosario Gomez AP RN, C.N.P., M.S. [address] [place] [address] [phone] (Mj godoy) 06/22/2022 Infusion Oncology Maria Del Rosario Gomez APRN, C.N .P., M.S. 200 [place], [place] 55 [phone] (Mj godoy) 06/29/2022 Lab Laboratory Medicine Maria Del Rosario Gomez AP RN, C.N.P., M.S. [address] [place], [place] 55 [phone] (Mj godoy) 06/29/2022 Infusion Oncology Maria Del Rosario Gomez APRN, C.N .P., M.S. [address] [place], [place] 55 [phone] (Mj godoy) documented as of this encounter Visit Diagnoses Not on filedocumented in this encounter Care Teams Investigator Cash Shortage Relationship Specialty Start Date End Date Elsewhere, Pcp PCP - General Family Medicine 08/12/20 documented as of this encounter
--- OUTSIDE RECORDS SUMMARY | 2022-06-18 16:14 | XMS_ITS | Encounter Summary ---
:1965 Author Organization [facility] Address [address] [place] [address] Care Team Providers Name Role Phone Elsewhere, Pcp Primary Care Provider Unavailable Reason for Visit Radiation Therapy (Routine) - Closed Specialty Diagnoses / Procedures Referred By Contact Refer red To Contact Diagnoses Malignant Neoplasm Of Pancreas (HCC) Lesia Silva M.D., Ph.D. [facility] Procedures Prior Auth Rad Tx [place] RADTN [place] DEL >=1 MEV COMPLEX 200 [address] [place] [address] Referral ID Status Reason Start Date Expiration Date Visits Requ ested Visits Authorized [id number] Closed 01/25/2021 01/25/2022 30 30 Encounter Details Date Type Department Care Team Description 02/09/2021 Hospital Encounter Department of Radiation Cat Ramon I., Oncology in [place] [address] [facility] 18[address] [place] [phone] Social History Tobacco Use Types Packs/Day Years [...] How often do you attend sikh or latter day services? 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 dgbiyc-puspausb-fiylkpx Take 1-2 capsules by 120 capsule 0 [...] Gomez AP RN, C.N.P., M.S. [address] [place] [address] [phone] (Mj godoy) 06/22/2022 Infusion Oncology Maria Del Rosario Gomez APRN, C.N .P., M.S. [address] [place] [address] 55 [phone] (Mj godoy) 06/29/2022 Lab Laboratory Medicine Maria Del Rosario Gomez AP RN, C.N.P., M.S. [address] [place] [address] 55 [phone] (Mj godoy) 06/29/2022 Infusion Oncology Maria Del Rosario Gomez APRN, C.N .P., M.S. 200 [place], [place] 55 [phone] (Wo rk) documented as of this encounter Visit Diagnoses Not on filedocumented in this encounter Care Teams Supervisor Wet Pour Relationship Specialty Start Date End Date Elsewhere, Pcp PCP - General Family Medicine 08/12/20 documented as of this encounter
--- OUTSIDE RECORDS SUMMARY | 2022-06-18 16:14 | XMS_ITS | Encounter Summary ---
:1965 Author Organization [facility] Address [address] [place] [address] Care Team Providers Name Role Phone Elsewhere, Pcp Primary Care Provider Unavailable Reason for Visit Outpatient (Routine) - Closed Specialty Diagnoses / Procedures Referred By Contact Refer red To Contact Oncology Maria Del Rosario Gomez APRN, C.N.P., [facility] [address] [place] [phone] Referral ID Status Reason Start Date Expiration Date Visits Requ ested Visits Authorized [id number] Closed 01/22/2021 01/22/2022 1 1 Encounter Details Date Type Department Care Team Description 02/01/2021 Nurse Only Department of Oncology in [facility] Maria Del Rosario li APRN, [facility].P.[facility] [address] [place] [phone] [place], [place] Vy Parry, R.N. [address] [place] [phone] [place] [phone] Social History Tobacco Use Types Packs/Day [...] How often do you attend yarsanism or presybeterian services? 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 - 02/01/2021 2:30 PM CDT Nurse Only Toxicity Check Visit Collaborating Provider TRAMAINE Padilla Ma Reason for Visit Pre-Chemotherapy Visit Mr. Campbell is here in preparation for day 8 cycle 1 of gemcitabine therapy with concurrent radiation Oncology History Malignant Neoplasm Of Pancreas (HCC) [...] with Radiation ) Start Date: 01/25/2021 Interval History by RN Mr. Campbell returns for reevaluation. He has found improvement in his nausea with taking Zofran 8 mg every 8 hours, and alternating Ativan 0.5 twice daily. No vomiting since Monday after eating a large meal. He is hoping for stronger anti- emetics, as he would like the nausea completely gone. Fortunately, denies any nausea at this time. He does find that adhering to small, frequent meals has been helpful at combating nausea as well. He is drinking plenty of fluids. He does have intermittent hiccups that last only a few hiccups before resolving. No acid reflux or heart burn. He does get intermittent low abdominal pains, of which resolve with passing gas. He believes these are gas pains. He notes this a few time a week. No distension. He is having daily stools with use of MiraLAX twice daily and Senna3 tablets every morning. If he does not have a bowel movement by the end of the day, he will take 3 more Senna in the evening, and will typically have results. He denies blood in stool. His energy level is good. He continues to ride his bike outdoors on nice days, and his Elliptical inside on bad days. No chest pains, shortness of breath, leg swelling, fevers, chills, skin rash, mouth sores, or dizziness. Labs reviewed by food service technician list reviewed & updated by RN Plan I have updated one of our care team providers, TRAMAINE Padilla Ma, regarding Mr. Campbell match up person and labs. There are no findings that are unexpected at this point in treatment and the patient is managing symptoms adequately without significant acute toxicity. He will continue with gemcitabine treatment as planned. Will reach out to Palliative Medicine regarding his anti-nausea needs. The following recommendations were discussed with the patient: Encouraged use of previously discussed bowel regimen, as taking. and Encouraged use of previously discussed anti-emetics as prescribed, as taking. He was encouraged to contact our team at any time with questions or concerns. Mr. Campbell expressed understanding and agrees with the plan. They have no further questions or concerns at this time. documented in this encounter Plan of Treatment Upcoming Encounters Date Type Specialty Care Team Description 06/22/2022 Lab Laboratory Medicine Maria Del Rosario Gomez AP RN, C.N.P., M.S. [address] [place] [address] [phone] (Mj rk) 06/22/2022 Infusion Oncology Maria Del Rosario Gomez APRN, C.N .P., M.S. [address] [place] [address] [phone] (Mj rk) 06/29/2022 Lab Laboratory Medicine Maria Del Rosario Gomez AP RN, C.N.P., M.S. [address] [place] [address] [phone] (Mj rk) 06/29/2022 Infusion Oncology Maria Del Rosario Gomez APRN, C.N .P., M.S. [address] [place] [address] [phone] (Mj rk) documented as of this encounter Visit Diagnoses Not on filedocumented in this encounter Care Teams Timber Treatment Plant Operator Relationship Specialty Start Date End Date Elsewhere, Pcp PCP - General Family Medicine 08/12/20 documented as of this encounter
--- OUTSIDE RECORDS SUMMARY | 2022-06-18 16:14 | XMS_ITS | Encounter Summary ---
:1965 Author Organization [facility] Address [address] [place] [address] Care Team Providers Name Role Phone Elsewhere, Pcp Primary Care Provider Unavailable Reason for Visit Reason Comments Medication Question Encounter Details Date Type Department Care Team Description 01/28/2021 Clinical Communication Department of Lee Sparrow Palliative Care in [place] River[place], [facility] 1st [place], [place] [address] [place] [phone] [place], [place] [phone] (Work) [phone] Social History Tobacco Use Types Packs/Day Years [...] How often do you attend muslim or amish services? 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 - 01/29/2021 2:15 PM CDT ASSESSMENT Mr. Campbell calls requesting a refill of Toradol 10 mg tablets. He originally received this medicationthrough the emergency department when he went there to for evaluation of acute low back pain. The onset of this persistent low back pain coincided with the start of his radiation treatment to his pancreatic tumor. Mr. Campbell describes the low back pain as sharp and at times wraps from the back around the front. He has been using 1 tablet of Toradol in the morning and 1 tablet at bedtime. During day while awake, he is also using hydromorphone 6 mg about every 3 hours for his abdominal pain that is independentof the back pain. He is able to sleep well overnight not needing to wake for pain medication. I also asked Mr. Campbell about his ongoing nausea. Mr. Campbell reports that he spoke with his oncology team regarding this earlier today. He took a dose of his ativan medication about 30-45 minutes ago andis currently have no nausea. He will continue to use Zofran as first line for nausea, then lorazepamas second line. He also believes he may be trying to eat too much food at one time and his body is having a hard time processing this. He will try having smaller, more frequent meals. He endorses continuing to take his Creon as prescribed. He denies constipation at this time. Mr. Campbell would like to continue this plan through the weekend. PLAN No new changes to nausea regimen at this time. He will update us on his nausea if he continues to struggle. Discussed use of Toradol 10 mg with JOSÉ MANUEL Dutton for him to continue 2 times daily as needed during the radiation period. I encouraged Mr. Campbell to trial going without the Toradol as his pain improves from radiation. He understands it is not desirable to utilize this medication on a long-term basis due to potential side effects. He has follow up scheduled for February 11. Our team will reassess his regimen at that time. He understands to call our team prior to that visit if needed. Disposition/Recommendation: self-care is appropriate at this time, patient encouraged to call back with questions. Information/Education: patient/caller able to teach back. Caller agreeable to plan of care: yes. The following references were used: nursing clinical judgement and provider advice per Marcelina Gonzalez PA-C. documented in this encounter Plan of Treatment Upcoming Encounters Date Type Specialty Care Team Description 06/22/2022 Lab Laboratory Medicine Maria Del Rosario Gomez AP RN, C.N.P., M.S. [address] [place] [phone] (Wo rk) 06/22/2022 Infusion Oncology Maria Del Rosario Gomez APRN, C.N .P., M.S. [address] [place] [address] [phone] (Wo rk) 06/29/2022 Lab Laboratory Medicine Maria Del Rosario Gomez AP RN, C.N.P., M.S. [address] [place] [address] [phone] (Wo rk) 06/29/2022 Infusion Oncology Maria Del Rosario Gomez APRN, C.N .P., M.S. [address] [place] [address] [phone] (Wo rk) documented as of this encounter Visit Diagnoses Not on filedocumented in this encounter Care Teams Impregnator Relationship Specialty Start Date End Date Elsewhere, Pcp PCP - General Family Medicine 08/12/20 documented as of this encounter
--- OUTSIDE RECORDS SUMMARY | 2022-06-18 16:14 | XMS_ITS | Encounter Summary ---
:[address] [facility] Address [address] [place] [address] Care Team Providers Name Role Phone Elsewhere, Pcp Primary Care Provider Unavailable Reason for Visit Radiation Therapy (Routine) - Closed Specialty Diagnoses / Procedures Referred By Contact Refer red To Contact Diagnoses Malignant Neoplasm Of Pancreas (HCC) Lesia Silva M.D., Ph.D. [facility] Procedures Prior Auth Rad Tx [place] RADTN [place] DEL >=1 MEV COMPLEX [address] [place] [address] Referral ID Status Reason Start Date Expiration Date Visits Requ ested Visits Authorized [id number] Closed 01/25/2021 01/25/2022 30 30 Encounter Details Date Type Department Care Team Description 02/02/2021 Hospital Encounter Department of Radiation Cat Ramon I., Oncology in [place] [address] [facility] [address] [place] [phone] Social History Tobacco Use Types Packs/Day Years [...] How often do you attend mormon or nondenominational services? 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 rzutrk-zcgvaaww-haijzju Take 1-2 capsules by 120 capsule 0 [...] Rosario Gomez AP RN, C.N.P., M.S. [address] [place] [address] [phone] (Mj godoy) 06/22/2022 Infusion Oncology Maria Del Rosario Gomez APRN, C.N .P., M.S. [address] [place] [address] 55 [phone] (Mj godoy) 06/29/2022 Lab Laboratory Medicine Maria Del Rosario Gomez AP RN, C.N.P., M.S. [address] [place] [address] 55 [phone] (Mj godoy) 06/29/2022 Infusion Oncology Maria Del Rosario Gomez APRN, C.N .P., M.S. 200 [place], [place] 55 [phone] (Wo rk) documented as of this encounter Visit Diagnoses Not on filedocumented in this encounter Care Teams Appliance Sales Associate Relationship Specialty Start Date End Date Elsewhere, Pcp PCP - General Family Medicine 08/12/20 documented as of this encounter
--- OUTSIDE RECORDS SUMMARY | 2022-06-18 16:14 | XMS_ITS | Encounter Summary ---
:1965 Author Organization [facility] Address [address] [place] [address] Care Team Providers Name Role Phone Elsewhere, Pcp Primary Care Provider Unavailable Encounter Details Date Type Department Care Team Description 02/09/2021 Clinical Communication Department of Lisa, Palliative Care in [place], [place] [address] [facility] [address] [place] [phone] Social History Tobacco Use Types Packs/Day Years [...] How often do you attend tenriism or jewish services? 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 [address] [place] [address] 55 [phone] (Wo rk) 06/22/2022 Infusion Oncology Maria Del Rosario Gomez APRN, C.N .P., M.S. [address] [place] [address] 55 [phone] (Wo rk) 06/29/2022 Lab Laboratory Medicine Maria Del Rosario Gomez AP RN, C.N.P., M.S. [address] [place] [address] 55 [phone] (Wo rk) 06/29/2022 Infusion Oncology Maria Del Rosario Gomez APRN, C.N .P., M.S. [address] [place] [address] [phone] (Wo rk) documented as of this encounter Visit Diagnoses Not on filedocumented in this encounter Care Teams Coating Machine Feeder Relationship Specialty Start Date End Date Elsewhere, Pcp PCP - General Family Medicine 08/12/20 documented as of this encounter
--- OUTSIDE RECORDS SUMMARY | 2022-06-18 16:14 | XMS_ITS | Encounter Summary ---
:1965 Author Organization [facility] Address [address] [place] [address] Care Team Providers Name Role Phone Elsewhere, Pcp Primary Care Provider Unavailable Reason for Visit Radiation Therapy (Routine) - Closed Specialty Diagnoses / Procedures Referred By Contact Refer red To Contact Diagnoses Malignant Neoplasm Of Pancreas (HCC) Lesia Silva M.D., Ph.D. [facility] Procedures Prior Auth Rad Tx [place] RADTN [place] DEL >=1 MEV COMPLEX [address] [place] [address] Referral ID Status Reason Start Date Expiration Date Visits Requ ested Visits Authorized [id number] Closed 01/25/2021 01/25/2022 30 30 Encounter Details Date Type Department Care Team Description 02/10/2021 Hospital Encounter Department of Radiation Cat Ramon I., Oncology in [place] [address] [facility] 1821 [place] [phone] Social History Tobacco Use Types Packs/Day Years [...] How often do you attend yarsanism or amish services? 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 ugbprk-fxldxouu-zdskgty Take 1-2 capsules by 120 capsule 0 [...] Gomez AP RN, C.N.P., M.S. [address] [place] [address] 55 [phone] (Mj godoy) 06/22/2022 Infusion Oncology Maria Del Rosario Gomez APRN, C.N .P., M.S. [address] [place] [address] 55 [phone] (Mj godoy) 06/29/2022 Lab Laboratory Medicine Maria Del Rosario Gomez AP RN, C.N.P., M.S. [address] [place] [address] 55 [phone] (Mj godoy) 06/29/2022 Infusion Oncology Maria Del Rosario Gomez APRN, C.N .P., M.S. 200 [place], [place] [phone] (Wo rk) documented as of this encounter Visit Diagnoses Not on filedocumented in this encounter Care Teams Talend Etl Developer Relationship Specialty Start Date End Date Elsewhere, Pcp PCP - General Family Medicine 08/12/20 documented as of this encounter
--- OUTSIDE RECORDS SUMMARY | 2022-06-18 16:14 | XMS_ITS | Encounter Summary ---
:1965 Author Organization [facility] Address [address] [place] [address] Care Team Providers Name Role Phone Elsewhere, Pcp Primary Care Provider Unavailable Reason for Visit Radiation Therapy (Routine) - Closed Specialty Diagnoses / Procedures Referred By Contact Refer red To Contact Diagnoses Malignant Neoplasm Of Pancreas (HCC) Lesia Silva M.D., Ph.D. 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 xoumnd-snsivcsk-hshvrqy Take 1-2 capsules by 120 capsule 0 [...] Rosario Gomez AP RN, C.N.P., M.S. [address] [place] [address] 55 [phone] (Mj godoy) 06/22/2022 Infusion Oncology Maria Del Rosario Gomez APRN, C.N .P., M.S. [address] [place] [address] 55 [phone] (Mj godoy) 06/29/2022 Lab Laboratory Medicine Maria Del Rosario Gomez AP RN, C.N.P., M.S. [address] [place] [address] 55 [phone] (Mj godoy) 06/29/2022 Infusion Oncology Maria Del Rosario Gomez APRN, C.N .P., M.S. 200 [place], [place] [phone] (Wo rk) documented as of this encounter Visit Diagnoses Not on filedocumented in this encounter Care Teams Chalk Cutter Relationship Specialty Start Date End Date Elsewhere, Pcp PCP - General Family Medicine 08/12/20 documented as of this encounter
--- OUTSIDE RECORDS SUMMARY | 2022-06-18 16:14 | XMS_ITS | Encounter Summary ---
:1965 Author Organization [facility] Address [address] [place] [address] Care Team Providers Name Role Phone Elsewhere, Pcp Primary Care Provider Unavailable Reason for Visit Radiation Therapy (Routine) - Closed Specialty Diagnoses / Procedures Referred By Contact Refer red To Contact Diagnoses Malignant Neoplasm Of Pancreas (HCC) Lesia Silva M.D., Ph.D. [facility] Procedures Prior Auth Rad Tx [place] RADTN [place] DEL >=1 MEV COMPLEX [address] [place] [address] Referral ID Status Reason Start Date Expiration Date Visits Requ ested Visits Authorized [id number] Closed 01/25/2021 01/25/2022 30 30 Encounter Details Date Type Department Care Team Description 02/03/2021 Hospital Encounter Department of Radiation Cat Ramon I., Oncology in [place] [address] [facility] 1821 [place] [phone] Social History Tobacco Use Types Packs/Day Years [...] How often do you attend scientologist or evangelical services? 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 rylrsg-dakwbkyw-padkmjd Take 1-2 capsules by 120 capsule 0 [...] Gomez AP RN, C.N.P., M.S. [address] [place] [address] 55 [phone] (Mj godoy) 06/22/2022 Infusion Oncology Maria Del Rosario Gomez APRN, C.N .P., M.S. [address] [place] [address] 55 [phone] (Mj godoy) 06/29/2022 Lab Laboratory Medicine Maria Del Rosario Gomez AP RN, C.N.P., M.S. [address] [place] [address] 55 [phone] (Mj godoy) 06/29/2022 Infusion Oncology Maria Del Rosario Gomez APRN, C.N .P., M.S. 200 [place], [place] [phone] (Wo rk) documented as of this encounter Visit Diagnoses Not on filedocumented in this encounter Care Teams Part Time Receptionist Relationship Specialty Start Date End Date Elsewhere, Pcp PCP - General Family Medicine 08/12/20 documented as of this encounter
--- OUTSIDE RECORDS SUMMARY | 2022-06-18 16:14 | XMS_ITS | Encounter Summary ---
:1965 Author Organization [facility] Address [address] [place] [address] Care Team Providers Name Role Phone Elsewhere, Pcp Primary Care Provider Unavailable Encounter Details Date Type Department Care Team Description 01/27/2021 Clinical Communication Department of Sohan Oncology in [place], [place] [address] [facility] [address] [place] [phone] Social History Tobacco Use Types Packs/Day Years [...] How often do you attend buddhist or buddhism services? 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 - 01/27/2021 1:47 PM CDT SUBJECTIVE CHIEF COMPLAINT / REASON FOR CALL No chief complaint on file. ASSESSMENT I called Mr. Campbell after receiving communication from Radiation Oncology in [place] that Mr. Campbell was having difficulties with nausea. He feels his nausea is well controlled at this time. He last took Zofran 8 mg at 9:00 am this morning, and will plan to take every 8 hours. He is staying well hydrated and eating small, frequent meals. He believes that his nausea could have started when waking up this morning, and fasting for radiation. He may have gone too long without eating. For tomorrow morning, he will try to wake up a bit earlier, and eat something two hours before radiation therapy, to still be in congruence with fasting guidelines. He also has a prescription for lorazepam 0.5 mg to take twice daily for anxiety. I explained he could also try taking this for nausea, if needed. He understands this could cause drowsiness. We discussed concern for constipation with increased Zofran. He is already taking MiraLAX twice daily, and Senna 3 tablets in the morning. If he has not had a bowel movement, will take 3 additional tablets in the evening. He will continue to push oral hydration as well. His pain is well controlled at this time. PLAN He will call with any further difficulties controlling his nausea. Disposition/Recommendation: self-care appropriate at this time, patient encouraged to call back withquestions. Information/Education: patient/caller able to teach back. Caller agreeable to plan of care: yes. The following references were used: nursing clinical judgement. documented in this encounter Plan of Treatment Upcoming Encounters Date Type Specialty Care Team Description 06/22/2022 Lab Laboratory Medicine Maria Del Rosario Gomez AP RN, C.N.P., M.S. [address] [place] [address] [phone] (Wo rk) 06/22/2022 Infusion Oncology Maria Del Rosario Gomez APRN, C.N .P., M.S. [address] [place] [address] [phone] (Wo rk) 06/29/2022 Lab Laboratory Medicine Maria Del Rosario Gomez AP RN, C.N.P., M.S. [address] [place] [address] 55 [phone] (Wo rk) 06/29/2022 Infusion Oncology Maria Del Rosario Gomez APRN, C.N .P., M.S. [address] [place] [phone] (Wo rk) documented as of this encounter Visit Diagnoses Not on filedocumented in this encounter Care Teams Video Game Repair Technician Relationship Specialty Start Date End Date Elsewhere, Pcp PCP - General Family Medicine 08/12/20 documented as of this encounter
--- OUTSIDE RECORDS SUMMARY | 2022-06-18 16:14 | XMS_ITS | Encounter Summary ---
:1965 Author Organization [facility] Address [address] [place] [address] Care Team Providers Name Role Phone Elsewhere, Pcp Primary Care Provider Unavailable Encounter Details Date Type Department Care Team Description 01/29/2021 Clinical Communication Department of Marilyn Ramon Radiation Oncology in [facility] [place] [address] [facility] [address] [place] [phone] Social History Tobacco Use Types Packs/Day Years [...] How often do you attend congregation or worship services? 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 - 02/01/2021 4:17 PM CDT Addended by: MELYSSA JOHNSON on: 02/01/2021 04:17 PM Modules accepted: Orders Addendum Note - Martin Dave R.N. - 02/01/2021 4:05 PM CDT Addended by: MARTIN DAVE on: 02/01/2021 04:05 PM Modules accepted: Orders Telephone Encounter - Martin Dave R.N. - 02/01/2021 4:02 PM CDT Prescription Refill Request Current Prescription Regimen: hydromorphone 4 mg, take 1-1.5 tablets every 3 hours as needed. Last filled: 01/22/2021 for 90 tablets Prescribed prescription amount: 135 tablets today [place] TABLE TOP TILE SETTER reviewed Prescription will be e-Prescribed to the following pharmacy: [facility]. Last Palliative appointment: 01/11/2021 Next Palliative appointment: 02/11/2021 Prescription was authorized by Melyssa Johnson PA-C Telephone Encounter - Vy Parry R.N. - 01/29/2021 12:19 PM CDT SUBJECTIVE CHIEF COMPLAINT / REASON FOR CALL No chief complaint on file. ASSESSMENT I spoke with Mr. Campbell. He had a large emesis of undigested food last night after having a large meal of meatloaf. He did note some parts of his lunch as well in his undigested food. He felt improved immediately after. He has some nausea today, but did tolerate eating a ham sandwich just a bit ago. Heis taking Zofran 8 mg every 8 hours. Denies any vomiting today. He is noticing increased burping through out the day. Denies acid reflux or heart burn. He is staying well hydrated with drinking 72 oz of water per day. He is working towards eating small, frequent meals, as he has historically felt worse after larger meals. He is having daily bowel movements with taking Senna 3 tabs every morning and Mi raLAX twice daily. Of note, he does put his MiraLAX in 36 oz of water, and drinks through out half of the day. If he has not had a bowel movement during the daytime, will take an additional Senna 3 tabs at nighttime. His last bowel movement was this morning, and quite large in size. It filled the entire toilet. He denies any blood in stool. He continues to pass gas, and notes to being foul smelling. Denies distention. No fevers/chills. He is tired today, and had just woken up from a nap. He has plans of working out on his Elliptical later this afternoon. He is requesting a stronger anti-emetic. PLAN Discussed with Mr. Campbell about trying lorazepam 0.5 prescription to see if this helps with nausea. However, with his large undigested emesis last evening containing parts of lunch, I shared concern forslow digestion causing nausea. He does not appear constipated however. We discussed small, frequent meals through out the day, to offload the burden of large meals on his digestive system. We also discussed taking MiraLAX with 8 oz of water in one sitting, rather than over a long period of time. I will further reach out to Palliative Medicine for other anti-nausea recommendations. Disposition/Recommendation: notified provider and awaiting recommendations. Information/Education: patient/caller able to teach back. Caller agreeable to plan of care: yes. The following references were used: nursing clinical judgement. Telephone Encounter - Maritza Georges Efe - 01/29/2021 9:31 AM CDT Caller: Patient Is there a valid authorization to speak with caller? Yes Primary Radiation Oncologist: Dr. Ramon Reason for call: Patient came in requesting a stronger nausea medication or something additional to what he is already taking. He threw up last night. He cannot take Compazine. He uses the [facility] in town - listed below. Phone number: mobile Is it okay to leave a voicemail on answering machine with test results? Yes Pharmacy (if medication related): [facility] [place], [place] - [address] [facility] [address] [place] [address] [facility] [place], [place] - [address] [facility] [address] [facility] [address] [facility] [place], [place] - 200 [facility] 200 [facility] [address] [facility] [place], [place] - [address] [facility] [address] Maritza Georges documented in this encounter Plan of Treatment Upcoming Encounters Date Type Specialty Care Team Description 06/22/2022 Lab Laboratory Medicine Maria Del Rosario Gomez AP RN, C.N.P., M.S. [address] [place] [address] [phone] (Mj godoy) 06/22/2022 Infusion Oncology Maria Del Rosario Gomez APRN, C.N .P., M.S. [address] [place] [address] 55 [phone] (Mj godoy) 06/29/2022 Lab Laboratory Medicine Maria Del Rosario Gomez AP RN, C.N.P., M.S. [address] [place] [address] 55 [phone] (Wo rk) 06/29/2022 Infusion Oncology Maria Del Rosario Gomez APRN, C.N .P., M.S. [address] [place] [address] [place] [phone] (Wo rk) documented as of this encounter Visit Diagnoses Not on filedocumented in this encounter Care Teams Sleeve Machine Tender Relationship Specialty Start Date End Date Elsewhere, Pcp PCP - General Family Medicine 08/12/20 documented as of this encounter
--- OUTSIDE RECORDS SUMMARY | 2022-06-18 16:14 | XMS_ITS | Encounter Summary ---
:1965 Author Organization [facility] Address [address] [place] [address] Care Team Providers Name Role Phone Elsewhere, Pcp Primary Care Provider Unavailable Reason for Visit Radiation Therapy (Routine) - Closed Specialty Diagnoses / Procedures Referred By Contact Refer red To Contact Diagnoses Malignant Neoplasm Of Pancreas (HCC) Lesia Silva M.D., Ph.D. [facility] Procedures Prior Auth Rad Tx [place] RADTN [place] DEL >=1 MEV COMPLEX [address] [place] [address] Referral ID Status Reason Start Date Expiration Date Visits Requ ested Visits Authorized [id number] Closed 01/25/2021 01/25/2022 30 30 Encounter Details Date Type Department Care Team Description 02/01/2021 Hospital Encounter Department of Radiation Cat Ramon I., Oncology in [place] [address] [facility] 18[address] [place] [phone] Social History Tobacco Use Types Packs/Day Years [...] er 01/15/2021 How often do you attend jain or amish services? 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 ihyzhp-snnvjzep-wziksqw Take 1-2 capsules by 120 capsule 0 [...] Gomez AP RN, C.N.P., M.S. [address] [place] [phone] (Mj godoy) 06/22/2022 Infusion Oncology Maria Del Rosario Gomez APRN, C.N .P., M.S. [address] [place] [address] [phone] (Mj godoy) 06/29/2022 Lab Laboratory Medicine Maria Del Rosario Gomez AP RN, C.N.P., M.S. [address] [place] [address] [phone] (Mj godoy) 06/29/2022 Infusion Oncology Maria Del Rosario Gomez APRN, C.N .P., M.S. 200 [place], [place] 55 [phone] (Wo rk) documented as of this encounter Visit Diagnoses Not on filedocumented in this encounter Care Teams Ventilated Rib Fitter Relationship Specialty Start Date End Date Elsewhere, Pcp PCP - General Family Medicine 08/12/20 documented as of this encounter
--- OUTSIDE RECORDS SUMMARY | 2022-06-18 16:14 | XMS_ITS | Encounter Summary ---
:1965 Author Organization [facility] Address [address] [place] [phone] Care Team Providers Name Role Phone Elsewhere, Pcp Primary Care Provider Unavailable Reason for Referral Outpatient (Routine) - Closed Specialty Diagnoses / Procedures Referred By Contact Refer red To Contact Diagnoses Loose Body Left Wrist Lesia Silva M.D., Ph.D. [facility] Procedures US Musculoskeletal Wrist Left [address] [place] [address] [phone] Referral ID Status Reason Start Date Expiration Date Visits Requ ested Visits Authorized [id number] Closed 01/21/2021 01/21/2022 1 1 Reason for Visit Outpatient (Routine) - Closed Specialty Diagnoses / Procedures Referred By Contact Refer red To Contact Diagnoses Loose Body Left Wrist Lesia Silva M.D., Ph.D. [facility] Procedures US Musculoskeletal Wrist Left [address] [place] [address] [phone] Referral ID Status Reason Start Date Expiration Date Visits Requ ested Visits Authorized [id number] Closed 01/21/2021 01/21/2022 1 1 Encounter Details Date Type Department Care Team Description 02/04/2021 Hospital Encounter Department of Lesia Silva Loose Bo dy Left Wrist Radiology, Hernan Roca, Ph.D. [facility], in [address] [place], [place] [address] [place] [phone] [place], [place] [phone] (Work) [phone] Social History Tobacco Use Types Packs/Day Years [...] er 01/15/2021 How often do you attend mu-ism or zoroastrianism services? 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 [id number]-oyqnlutb-zmqpxjh Take 1-2 capsules by 120 capsule 0 [...] Gomez AP RN, C.N.P., M.S. [address] [place], [place] [phone] (Wo rk) 06/22/2022 Infusion Oncology AdignacioMaria Del Rosario APRN, C.N .P., M.S. [address] [place], [place] [phone] (Mj godoy) 06/29/2022 Lab Laboratory Medicine PatriciaMaria Del Rosario AP RN, C.N.P., M.S. [address] [place], [place] [phone] (Mj godoy) 06/29/2022 Infusion Oncology FrenchburgignacioMari aDel Rosario APRN, C.N .P., M.S. [address] [place], [place] [phone] (Mj godoy) documented as of this encounter Procedures Procedure Name Priority Date/Time Associated Comments Diagnosis US MUSCULOSKELETAL RAD - Routine 02/04/2021 3:02 Loose Body Left Re sults for WRIST LEFT (most inpatients PM CDT Wrist this proced ure and all are in the outpatients) results section. documented in this encounter Results US Musculoskeletal Wrist Left (02/04/2021 3:02 PM CDT) Anatomical Region Laterality Modality Upper Extremity, Ultrasound RST LOS, Musculoskeletal ARZ LOS , Left Ultrasound Ultrasound ARZ LOS, Muskuloskeletal FLA LOS Specimen (Source) Anatomical Collection Method Collection Time Re ceived Time Location / / Volume Laterality 02/04/2021 3:56 PM CDT Impressions 02/04/2021 4:00 PM CDT The palpable area of concern over the volar radial aspect of the left wrist correlates with a markedly ir regular elongated multi loculated cyst which is intimately associated with the radial artery and 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 There are fin gers of extension deep to the artery, traveling along the volar aspect of the carpus and extending to the wrist joint, both proximally and distally. It is diff icult to measure the cyst due to the irregular shape and the elongated nature but it measures at least 4 cm in length and 1.3 cm AP by 2.1 cm transverse. Narrative 02/04/2021 4:00 PM CDT EXAM: US MUSCULOSKELETAL WRIST LEFT COMPARISON: ??Radiographs 01/15/2021 Procedure Note Griselda Hunter M.D. - 02/04/2021For matting of this note might be different from the original. 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 There are fin gers of extension deep to the artery, traveling along the volar aspect of the carpus and extending to the wrist joint, both proximally and distally. It is diff icult to measure the cyst due to the irregular shape and the elongated nature but it measures at least 4 cm in length and 1.3 cm AP by 2.1 cm transverse. Lesia Silva M.D., Ph.D. IMG US PROCEDURES documented in this encounter Visit Diagnoses Diagnosis Loose Body Left Wrist documented in this encounter Care Teams Painter Airbrush Relationship Specialty Start Date End Date Elsewhere, Pcp PCP - General Family Medicine 08/12/20 documented as of this encounter
--- OUTSIDE RECORDS SUMMARY | 2022-06-18 16:14 | XMS_ITS | Encounter Summary ---
:1965 Author Organization [facility] Address [address] [place] [phone] Care Team Providers Name Role Phone Elsewhere, Pcp Primary Care Provider Unavailable Reason for Referral Specialty Diagnoses / Procedures Referred By Contact Refer red To Contact Marilyn Ramon M.D. [facility] [address] [place] [phone] Referral ID Status Reason Start Date Expiration Date Visits Requ ested Visits Authorized Encounter Details Date Type Department Care Team Description 02/02/2021 Hospital Encounter Department of Marilyn Ramon Neoplasm Radiation Oncology Chanelle Allen Of Pancreas (HCC) in [place], [facility] [address] [place], [place] 18[address] [facility] [address] [place], [place] [phone] (Work) [phone] Social History Tobacco Use Types Packs/Day Years [...] How often do you attend synagogue or anabaptism services? 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 lgoyjx-cnzbeael-jkzkoxe Take 1-2 capsules by 120 capsule 0 [...] Gomez AP RN, C.N.P., M.S. [address] [place] [phone] (Mj godoy) 06/22/2022 Infusion Oncology Maria Del Rosario Gomez APRN, C.N .P., M.S. [address] [place] [phone] (Mj godoy) 06/29/2022 Lab Laboratory Medicine Maria Del Rosario Gomez AP RN, C.N.P., M.S. [address] [place] [phone] (Mj godoy) 06/29/2022 Infusion Oncology Maria Del Rosario Gomez APRN, C.N .P., M.S. [address] [place], [place] [phone] (Wo rk) Scheduled Referrals Name Type Priority Associated Order Schedule Diagnoses Radiation Oncology Outpatient Referral Routine Malignant Neopl asm Once for 1 - Nurse education Of Pancreas (HCC) Occur [facility] starting visit (clinic) 02/02/2021 un til 02/02/2021 documented as of this encounter Visit Diagnoses Diagnosis Malignant Neoplasm Of Pancreas (HCC) documented in this encounter Care Teams Car Lot Attendant Relationship Specialty Start Date End Date Elsewhere, Pcp PCP - General Family Medicine 08/12/20 documented as of this encounter
--- OUTSIDE RECORDS SUMMARY | 2022-06-18 16:14 | XMS_ITS | Encounter Summary ---
:1965 Author Organization [facility] Address [address] [place] [address] Care Team Providers Name Role Phone Elsewhere, Pcp Primary Care Provider Unavailable Reason for Visit Radiation Therapy (Routine) - Closed Specialty Diagnoses / Procedures Referred By Contact Refer red To Contact Diagnoses Malignant Neoplasm Of Pancreas (HCC) Lesia Silva M.D., Ph.D. [facility] Procedures Prior Auth Rad Tx NV RADTN TX DEL >=1 MEV COMPLEX [address] [place] [phone] Referral ID Status Reason Start Date Expiration Date Visits Requ ested Visits Authorized [id number] Closed 01/25/2021 01/25/2022 30 30 Encounter Details Date Type Department Care Team Description 01/28/2021 Hospital Encounter Department of Radiation Cat Ramon I., Oncology in [place] [address] [facility] 1821 [place] [phone] Social History Tobacco Use Types Packs/Day Years [...] How often do you attend adventist or episcopal services? 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 xaldal-sljodwxf-fvjuoso Take 1-2 capsules by 120 capsule 0 [...] Gomez AP RN, C.N.P., M.S. [address] [place] [phone] (Mj godoy) 06/22/2022 Infusion Oncology Maria Del Rosario Gomez APRN, C.N .P., M.S. [address] [place] [phone] (Mj godoy) 06/29/2022 Lab Laboratory Medicine Maria Del Rosario Gomez AP RN, C.N.P., M.S. [address] [place] [phone] (Mj godoy) 06/29/2022 Infusion Oncology Maria Del Rosario Gomez APRN, C.N .P., M.S. 200 [place], [place] [phone] (Wo rk) documented as of this encounter Visit Diagnoses Not on filedocumented in this encounter Care Teams Plastics Supervisor Relationship Specialty Start Date End Date Elsewhere, Pcp PCP - General Family Medicine 08/12/20 documented as of this encounter
--- OUTSIDE RECORDS SUMMARY | 2022-06-18 16:14 | XMS_ITS | Encounter Summary ---
:1965 Author Organization [facility] Address [address] [place] [address] Care Team Providers Name Role Phone Elsewhere, Pcp Primary Care Provider Unavailable Reason for Visit Episode Based Medications (Routine) - Closed Specialty Diagnoses / Procedures Referred By Contact Refer red To Contact Diagnoses Malignant Neoplasm Of Pancreas (HCC) Deborah Murray M.B.B.S. [facility] Procedures [place] GEMCITABINE [facility] [address] [facility] [address] [place] [phone] [place] [phone] Referral ID Status Reason Start Date Expiration Date Visits Requ ested Visits Authorized [id number] Closed 01/15/2021 01/15/2022 12 12 Encounter Details Date Type Department Care Team Description 02/01/2021 Lab Department of Infusion Ulises Cardenas Ma lignant Neoplasm Of Pancreas (HCC) (Primary Dx); Therapy in [facility] [address] [facility] [address] [place] [phone] (Wo rk) Social History Tobacco Use Types [...] How often do you attend yarsanism or holiness services? 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 [address] [place] [phone] (Mj godoy) 06/22/2022 Infusion Oncology Maria Del Rosario Gomez APRN, C.N .P., M.S. [address] [place] [phone] (Mj godoy) 06/29/2022 Lab Laboratory Medicine Maria Del Rosario Gomez AP RN, C.N.P., M.S. [address] [place] [phone] (Mj godoy) 06/29/2022 Infusion Oncology Maria Del Rosario Gomez APRN, C.N .P., M.S. [address] [place] [phone] (Mj godoy) documented as of this encounter Procedures Procedure Name Priority Date/Time Associated Comments Diagnosis CBC CHEMO - NO ALERTS Routine 02/01/2021 1:20 PM Malignant Siva plasm Results for this CDT Of Pancreas (HCC) procedure are in the results section. COMPREHENSIVE Routine 02/01/2021 1:20 PM Malignant Neoplasm Re sults for this METABOLIC PANEL, S/P CDT Of Pancreas (HCC) pr ocedure are in the results section. documented in this encounter Results (ABNORMAL) Comprehensive Metabolic Panel (02/01/2021 1:20 PM CDT) [facility] Time Signature Potassium, S 3.9 3.6 - 5.2 02/01/2021 DTL mmol/L 2:21 PM CDT Sodium, S 139 135 - 145 02/01/2021 DTL mmol/L 2:21 PM CDT Chloride, S 103 98 - 107 02/01/2021 DTL mmol/L 2:21 PM CDT Bicarbonate, S 26 22 - 29 02/01/2021 DTL mmol/L 2:21 PM CDT Anion Gap 10 7 - 15 02/01/2021 DTL 2:21 PM CDT BUN (Blood Urea 16 8 - 24 02/01/2021 DTL Nitrogen), S mg/dL 2:21 PM CDT Creatinine 0.72 (L) 0.74 - 02/01/2021 DTL 1.35 mg/dL 2:21 PM CDT eGFR-Non >90 >=60 02/01/2021 DTL Black/ mL/min/BSA 2:21 PM CDT Bermudian Comment: ----ADDITIONAL INFORMATION---- Estimated GFR calculated using the 2009 CKD_EPI creatinine equation. eGFR-Black/ >90 >=60 mL/min/BSA 2020 2:21 PM CDT DTL Comment: ----ADDITIONAL INFORMATION---- Estimated GFR calculated using the 2009 CKD_EPI creatinine equation. Calcium, Total, S 9.1 8.6 - 10.0 mg/dL 02/01/2021 2:21 PM CDT DTL Glucose, S 113 70 - 140 mg/dL 02/01/2021 2:21 PM CDT D TL Protein, Total, S 7.0 6.3 - 7.9 g/dL 02/01/2021 2:21 P M CDT DTL Albumin, S 3.9 3.5 - 5.0 g/dL 02/01/2021 2:21 PM CDT D TL Aspartate Aminotransferase (AST), 12 8 - 48 U/L 02/01 2:21 PM CDT DTL S Alkaline Phosphatase, S 89 40 - 129 U/L 02/01/2021 2: 21 PM CDT DTL Alanine Aminotransferase (ALT), S 9 7 - 55 U/L 02/01 2:21 PM CDT DTL Bilirubin, Total, S 0.3 <=1.2 mg/dL 02/01/2021 2:21 PM CDT DTL Specimen Anatomical Collection Method Collection Time Receive d Time (Source) Location / / Volume Laterality Blood (Blood, 02/01/2021 1:20 PM 02/02/20 1:36 Venous) CDT PM CDT Ulises Cardenas M.D. LAB BLOOD ADD-ON Performing Organization Address City/[facility] Phon e Number [facility] - [address] (ABNORMAL) CBC, Chemotherapy, No Alerts (02/01/2021 1:20 PM CDT) Analysis Performed At [facility]o [facility]ist Time Signature Hemoglobin 10.6 (L) 13.2 - 02/01/2021 DTL 16.6 g/dL 1:45 PM CDT Platelet Count 143 135 - 317 02/01/2021 DTL x10(9)/L 1:45 PM CDT Leukocytes 4.1 3.4 - 9.6 02/01/2021 DTL x10(9)/L 1:45 PM CDT Neutrophils 3.32 1.56 - 02/01/2021 DTL 6.45 1:45 PM CDT x10(9)/L Specimen Anatomical Collection Method Collection Time Receive d Time (Source) Location / / Volume Laterality Blood (Blood, 02/01/2021 1:20 PM 02/02/20 1:35 Venous) CDT PM CDT Ulises Cardenas M.D. LAB BLOOD ADD-ON Performing Organization Address City/[facility] Phon e Number [facility] - 200 [place], [place] [address] [place] [address] documented in this encounter Visit Diagnoses Diagnosis Malignant Neoplasm Of Pancreas (HCC) - P rimary Bacteremia documented in this encounter Administered Medications Inactive Administered Medications - up to 3 most recent administrations Medication Order MAR Action Action Date Dose Rate Site heparin flush 500 Units Given 02/01/2021 1:24 PM CDT 500 Units 500 Units, intra-catheter, As needed, line care, Starting on Mon02/01/21 at 1309, When no infusion to maintain patency: For IVAD accessed, not in use, and/or prior to hospital discharge, flush every 7 days after 0.9% preservative-free NaCL flush. For IVAD NOT accessed or used, flush every 4 weeks after 0.9% preservative-free NaCL flush. sodium chloride 0.9 % injection 10 mL Given 02/01/2021 1:24 PM CDT 10 mL 10 mL, intra-catheter, As needed, line care, Starting on Mon02/01/21 at 1309, When IVAD Accessed and in Use: Flush prior to and following infusion, between multiple consecutive infusions, and prior to blood sampling. sodium chloride 0.9 % injection 20 mL Given 02/01/2021 1:24 PM CDT 20 mL 20 mL, intra-catheter, As needed, line care, Starting on Mon02/01/21 at 1309, When IVAD Accessed and in Use: Flush post blood transfusion or post blood sampling. documented in this encounter Care Teams Telecommunications Sales Representative Relationship Specialty Start Date End Date Elsewhere, Pcp PCP - General Family Medicine 08/12/20 documented as of this encounter
--- OUTSIDE RECORDS SUMMARY | 2022-06-18 16:14 | XMS_ITS | Encounter Summary ---
:1965 Author Organization [facility] Address [address] [place] [address] Care Team Providers Name Role Phone Elsewhere, Pcp Primary Care Provider Unavailable Reason for Referral Radiation Therapy (Routine) - Closed Specialty Diagnoses / Procedures Referred By Contact Refer red To Contact Diagnoses Malignant Neoplasm Of Pancreas (HCC) Marilyn Ramon M.D. [facility] Procedures Management Visit [address] [place] [address] Referral ID Status Reason Start Date Expiration Date Visits Requ ested Visits Authorized [id number] Closed 01/18/2021 01/18/2022 10 10 Reason for Visit Radiation Therapy (Routine) - Closed Specialty Diagnoses / Procedures Referred By Contact Refer red To Contact Diagnoses Malignant Neoplasm Of Pancreas (HCC) Marilyn Ramon M.D. [facility] Procedures Management Visit [address] [place] [phone] Referral ID Status Reason Start Date Expiration Date Visits Requ ested Visits Authorized [id number] Closed 01/18/2021 01/18/2022 10 10 Encounter Details Date Type Department Care Team Description 02/10/2021 Hospital Encounter Department of Marilyn Ramon Neoplasm Radiation Oncology Chanelle Allen Of Pancreas (HCC) in [place], [address] [place], [place] 1821 [facility] [address] [place], [place] [phone] (Work) [phone] Social History Tobacco Use Types Packs/Day Years [...] How often do you attend religion or anglican services? 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 zjmiea-sjatcvsx-bkvkeoy Take 1-2 capsules by 120 capsule 0 [...] 1 tablet (8 mg 30 tablet 3 05/1 03/2021 08/16/2021 mg tabletIndications: total) by mouth Malignant Neoplasm Of every 8 (eight) Pancreas (HCC) hours as needed for nausea or vomiting. documented as of this encounter Progress Marilyn Boyce M.D. - 02/10/2021 2:00 PM CDT ATTESTATION FOR MANAGEMENT VISIT I saw and evaluated the patient and participated in the patel portions of the service as noted below. I reviewed the documentation of Ms. Marylou Vasquez RN and agree with the findings and plan. The patient appears well on exam. I am pleased his back pain is improving. He is feeling better off of the Dilaudid. We will continue with radiation as planned and monitor weekly. Marilyn Ramon M.D., 02/10/2021 SUBJECTIVE REASON FOR VISIT Evaluation for side effects while receiving radiation treatment for 1. Malignant Neoplasm Of Pancreas (HCC) SUPERVISED BY: Dr. Ramon HISTORY OF PRESENT ILLNESS Mr. Adam Campbell is a 55 y.o. male with an unresectable pancreatic cancer who has received minimal chemotherapy due to poor tolerance and recurrent cholangitis. He is now undergoing definitive radiation with weekly gemcitabine that will be delivered in [place]. Treatment Course: 1x Pancreas Plan ID Fractions Dose / Fraction (cGy) Dose Treated (cGy) Dose Planned (cGy) First Treatment Last Treatment Elapsed Days F1 Pancreas [phone] 01/25/2021 02/10/2021 16 Course Summary 01/25/2021 02/10/2021 16 The patient was seen and examined today with Dr. Ramon. The patient reports that he is doing better. He denies pain today. He has not vomited this week. Nausea is improving. He denies fevers, chills, changes in urination or bowel pattern or any other new symptoms. He stopped taking Dilaudid and has switched back to 5 mg Oxycodone every 3-4 hours. PATIENT REPORTED SYMPTOM SCREEN FATIGUE (Scale: 0 = no fatigue; 10 = worst fatigue you can imagine): 1-2 PAIN (Scale: 0 = no pain; 10 = worst pain you can imagine): 0 OVERALL QUALITY OF LIFE (Scale: 0 = as bad as can be; 10 = as good as can be): OBJECTIVE BP 114/74 (BP Location: Right arm, Patient Position: Sitting, Cuff Size: Small) Pulse 80 Temp 36.3 ??C (Temporal) Wt 67 kg BMI 20.89 kg/m?? PHYSICAL EXAM General: Alert and oriented in no apparent distress. ASSESSMENT / PLAN #1 Unresectable Stage IB, T2 N0 M0 pancreatic adenocarcinoma, s/p neoadjuvant chemotherapy #2 Definitive radiation therapy along with weekly gemcitabine initiated on January 25, 2021; anticipatedcompletion on March 01, 2021 Patient is tolerating treatment fairly well overall. Weight has decreased by 1 kg since starting treatment. We will continue to monitor closely. He is schedule for lab work, Palliative Care and MedicalOncology follow up tomorrow on our [facility]. He is then scheduled for chemotherapy this coming Monday on our [facility]. He will contact us with any questions or concerns. We will continue with radiation treatment as planned. Signed by: Marylou Vasquez R.N. 02/10/2021 2:26 PM CDT documented in this encounter Plan of Treatment Upcoming Encounters Date Type Specialty Care Team Description 06/22/2022 Lab Laboratory Medicine Maria Del Rosario Gomez AP RN, C.N.P., M.S. [address] [place] [phone] (Mj godoy) 06/22/2022 Infusion Oncology Maria Del Rosario Gomez APRN, Remy.N .P., M.S. [address] [place] [phone] (Mj godoy) 06/29/2022 Lab Laboratory Medicine Maria Del Rosario Gomez AP RN, C.N.P., M.S. [address] [place], [place] [phone] (Mj godoy) 06/29/2022 Infusion Oncology Maria Del Rosario Gomez APRN, C.N .P., M.S. [address] [place], [place] [phone] (Mj godoy) Scheduled Orders Name Type Priority Associated Diagnoses Order S chedule Management Visit Radiation Oncology Routine Malignant Neoplasm Once for 1 Of Pancreas (HCC) Occurrence s starting 02/10/2021 unti l 02/10/2021 documented as of this encounter Visit Diagnoses Diagnosis Malignant Neoplasm Of Pancreas (HCC) documented in this encounter Care Teams Crab Backer Relationship Specialty Start Date End Date Elsewhere, Pcp PCP - General Family Medicine 08/12/20 documented as of this encounter
--- OUTSIDE RECORDS SUMMARY | 2022-06-18 16:14 | XMS_ITS | Encounter Summary ---
:1965 Author Organization [facility] Address [address] [place] [address] Care Team Providers Name Role Phone Elsewhere, Pcp Primary Care Provider Unavailable Reason for Referral Radiation Therapy (Routine) - Closed Specialty Diagnoses / Procedures Referred By Contact Refer red To Contact Diagnoses Malignant Neoplasm Of Pancreas (HCC) Marilyn Ramon M.D. [facility] Procedures Management Visit [address] [place] [address] Referral ID Status Reason Start Date Expiration Date Visits Requ ested Visits Authorized [id number] Closed 01/18/2021 01/18/2022 10 10 Reason for Visit Radiation Therapy (Routine) - Closed Specialty Diagnoses / Procedures Referred By Contact Refer red To Contact Diagnoses Malignant Neoplasm Of Pancreas (HCC) Marilyn Ramon M.D. [facility] Procedures Management Visit [address] [place] [address] Referral ID Status Reason Start Date Expiration Date Visits Requ ested Visits Authorized [id number] Closed 01/18/2021 01/18/2022 10 10 Encounter Details Date Type Department Care Team Description 02/03/2021 Hospital Encounter Department of Raymond Rehman Neoplasm Radiation Oncology Chanelle Sanchez Of Pancreas (HCC) in [place], [address] [place], [place] 1821 [facility] [address] [place], [place] [phone] (Work) [phone] Social History Tobacco Use Types Packs/Day Years [...] How often do you attend congregation or spiritism services? 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 yjvowl-fhdkvkmw-oxqiajo Take 1-2 capsules by 120 capsule 0 [...] encounter Progress Notes Raymond Rehman M.D. - 02/03/2021 3:30 PM CDT SUBJECTIVE REASON FOR VISIT Evaluation for side effects while receiving radiation treatment for 1. Malignant Neoplasm Of Pancreas (HCC) SUPERVISED BY: Raymond Rehman M.D. ([id number]) HISTORY OF PRESENT ILLNESS Mr. Adam Campbell is a 55 y.o. male with an unresectable pancreatic cancer who has received minimal chemotherapy due to poor tolerance and recurrent cholangitis. He is now undergoing definitive radiation with weekly gemcitabine that will be delivered in [place]. Treatment Course: 1x Pancreas Plan ID Fractions Dose / Fraction (cGy) Dose Treated (cGy) Dose Planned (cGy) First Treatment Last Treatment Elapsed Days F1 Pancreas [phone] 01/25/2021 02/03/2021 9 Course Summary 01/25/2021 02/03/2021 9 The patient was seen and examined today with Dr. Rehman. The patient reports vomiting once after chemotherapy Monday but none since. Nausea is mild overall. He is taking Zofran every 8 hours and Ativan 2 times a day. He is taking MiraLAX 2 times a day and Senokot-S as needed. He denies gas pains, fevers, chills, hematuria, rectal bleeding or diarrhea. He denies any new concerns. He bikes everyday and mowed his grass earlier today. 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 PATIENT REPORTED SYMPTOM SCREEN FATIGUE (Scale: 0 = no fatigue; 10 = worst fatigue you can imagine): 3 PAIN (Scale: 0 = no pain; 10 = worst pain you can imagine): 3 OVERALL QUALITY OF LIFE (Scale: 0 = as bad as can be; 10 = as good as can be): 8-9 OBJECTIVE BP 98/61 (BP Location: Right arm, Patient Position: Sitting, Cuff Size: Small) Pulse 82 Temp 36.7 ??C (Temporal) Wt 67.8 kg BMI 21.14 kg/m?? PHYSICAL EXAM General: Alert and oriented [...] as planned. Signed by: Marylou Vasquez R.N. 02/03/2021 3:44 PM CDT I saw and evaluated the patient and participated in the patel portions of the service. I reviewed the documentation of Marylou Vasquez R.N. and agree with the findings and plan. The patient appears well onexam. He is tolerating treatment well. He will continue with treatment as planned. Signed by: Raymond Rehman M.D. 02/03/2021 5:46 PM CDT [facility] [address] [place] [address] documented in this encounter Plan of Treatment Upcoming Encounters Date Type Specialty Care Team Description 06/22/2022 Lab Laboratory Medicine Maria Del Rosario Gomez AP RN, C.N.P., M.S. [address] [place], [place] [phone] (Mj godoy) 06/22/2022 Infusion Oncology Maria Del Rosario Gomez APRN, C.N .P., M.S. [address] [place] [phone] (Mj godoy) 06/29/2022 Lab Laboratory Medicine Maria Del Rosario Gomez AP RN, C.N.P., M.S. [address] [place] [phone] (Mj godoy) 06/29/2022 Infusion Oncology Maria Del Rosario Gomez APRN, C.N .P., M.S. 200 [place], [place] [phone] (Wo rk) Scheduled Orders Name Type Priority Associated Diagnoses Order S chedule Management Visit Radiation Oncology Routine Malignant Neoplasm Once for 1 Of Pancreas (HCC) Occurrence s starting 02/03/2021 unti l 02/03/2021 documented as of this encounter Visit Diagnoses Diagnosis Malignant Neoplasm Of Pancreas (HCC) documented in this encounter Care Teams Wood Last Maker Relationship Specialty Start Date End Date Elsewhere, Pcp PCP - General Family Medicine 08/12/20 documented as of this encounter
--- OUTSIDE RECORDS SUMMARY | 2022-06-18 16:14 | XMS_ITS | Encounter Summary ---
:1965 Author Organization [facility] Address [address] [place] [address] Care Team Providers Name Role Phone Elsewhere, Pcp Primary Care Provider Unavailable Encounter Details Date Type Department Care Team Description 02/04/2021 Hospital Encounter Department of Starr Ramon M.D. [address] [place] [phone] Malignant Neoplasm Radiation Oncology Marylou Vasquez R.N. [address] [place] [phone] Of Pancreas (HCC) in [place], (Primary Dx) [place] [address] [place] [phone] Social History Tobacco Use Types Packs/Day Years [...] How often do you attend anglican or congregation services? 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 euyfpx-iofusnaq-zqnobhs Take 1-2 capsules by 120 capsule 0 [...] documented as of this encounter Progress Notes Nikki Purdy R.N. - 02/04/2021 1:00 PM CDT Mr. Campbell and family were seen for education on the side effects of radiation therapy. Their questions were answered to the best of my ability and handouts were given. They were encouraged to contact the team at any point with questions or concerns. documented in this encounter Plan of Treatment Upcoming Encounters Date Type Specialty Care Team Description 06/22/2022 Lab Laboratory Medicine Maria Del Rosario Gomez AP RN, C.N.P., M.S. [address] [place] [phone] (Mj godoy) 06/22/2022 Infusion Oncology Maria Del Rosario Gomez APRN, C.N .P., M.S. [address] [place] [phone] (Mj godoy) 06/29/2022 Lab Laboratory Medicine Maria Del Rosario Gomez AP RN, C.N.P., M.S. [address] [place], [place] [phone] (Mj godoy) 06/29/2022 Infusion Oncology Maria Del Rosario Gomez APRN, C.N .P., M.S. [address] [place], [place] [phone] (Mj godoy) documented as of this encounter Visit Diagnoses Diagnosis Malignant Neoplasm Of Pancreas (HCC) - P rimary documented in this encounter Care Teams Clinical Psychologist Licensed Relationship Specialty Start Date End Date Elsewhere, Pcp PCP - General Family Medicine 08/12/20 documented as of this encounter
--- OUTSIDE RECORDS SUMMARY | 2022-06-18 16:14 | XMS_ITS | Encounter Summary ---
:1965 Author Organization [facility] Address [address] [place] [address] Care Team Providers Name Role Phone Elsewhere, Pcp Primary Care Provider Unavailable Reason for Visit Radiation Therapy (Routine) - Closed Specialty Diagnoses / Procedures Referred By Contact Refer red To Contact Diagnoses Malignant Neoplasm Of Pancreas (HCC) Lesia Silva M.D., Ph.D. [facility] Procedures Prior Auth Rad Tx MT RADTN TX DEL >=1 MEV COMPLEX [address] [place] [address] Referral ID Status Reason Start Date Expiration Date Visits Requ ested Visits Authorized [id number] Closed 01/25/2021 01/25/2022 30 30 Encounter Details Date Type Department Care Team Description 02/04/2021 Hospital Encounter Department of Radiation Cat Ramon I., Oncology in [place] [address] [facility] 1821 [place] [phone] Social History Tobacco Use Types Packs/Day Years [...] How often do you attend sabianism or mu-ism services? 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 jsfooa-zxymxtos-qazppgb Take 1-2 capsules by 120 capsule 0 [...] Gomez AP RN, C.N.P., M.S. [address] [place] [phone] (Mj godoy) 06/22/2022 Infusion Oncology Maria Del Rosario Gomez APRN, C.N .P., M.S. [address] [place] [phone] (Mj godoy) 06/29/2022 Lab Laboratory Medicine Maria Del Rosario Gomez AP RN, C.N.P., M.S. [address] [place] [phone] (Mj godoy) 06/29/2022 Infusion Oncology Maria Del Rosario Gomez APRN, C.N .P., M.S. 200 [place], [place] [phone] (Wo rk) documented as of this encounter Visit Diagnoses Not on filedocumented in this encounter Care Teams Barrel Cleaner Relationship Specialty Start Date End Date Elsewhere, Pcp PCP - General Family Medicine 08/12/20 documented as of this encounter
--- OUTSIDE RECORDS SUMMARY | 2022-06-18 16:14 | XMS_ITS | Encounter Summary ---
:1965 Author Organization [facility] Address [address] [place] [address] Care Team Providers Name Role Phone Elsewhere, Pcp Primary Care Provider Unavailable Reason for Visit Episode Based Medications (Routine) - Closed Specialty Diagnoses / Procedures Referred By Contact Refer red To Contact Diagnoses Malignant Neoplasm Of Pancreas (HCC) Deborah Murray M.B.B.S. [facility] Procedures CT GEMCITABINE HCL [address] [facility] [address] [place] [phone] [place] [address] Referral ID Status Reason Start Date Expiration Date Visits Requ ested Visits Authorized [id number] Closed 01/15/2021 01/15/2022 12 12 Encounter Details Date Type Department Care Team Description 02/01/2021 Infusion Department of Oncology Ulises Cardenas Ma lignant Neoplasm Of Pancreas (HCC) (Primary Dx); in [facility] elke Roca Bacteremia [address] [place] [address] [address] [place] [phone] Social History Tobacco Use Types Packs/Day Years [...] How often do you attend caodaism or yarsani services? 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 [address] [place] [phone] (Mj godoy) 06/22/2022 Infusion Oncology Maria Del Rosario Gomez APRN, C.N .P., M.S. [address] [place] [phone] (Mj godoy) 06/29/2022 Lab Laboratory Medicine Maria Del Rosario Gomez AP RN, C.N.P., M.S. [address] [place] [phone] (Mj godoy) 06/29/2022 Infusion Oncology Maria Del Rosario Gomez APRN, C.N .P., M.S. [address] [place] [phone] (Mj godoy) documented as of this encounter Visit Diagnoses Diagnosis Malignant Neoplasm Of Pancreas (HCC) - P rimary Bacteremia documented in this encounter Administered Medications Inactive Administered Medications - up to 3 most recent administrations Medication Order MAR Action Action Date Dose Rate Site gemcitabine 600 mg in NaCl New Bag 02/01/2021 3:52 PM CDT 600 mg 532 mL/hr 0.9% 265.78 mL IVPB (GEMZAR) 600 mg (rounded from 552 mg = 300 mg/m2 ? 1.84 m2 Treatment Plan BSA from Measured weight), intravenous, at 532 mL/hr, Administer over 30 Minutes, Once, On Mon02/01/21 at 1545, For 1 dose heparin flush 500 Units Given 02/01/2021 4:29 PM CDT 500 Units 500 Units, intra-catheter, As needed, line care, Starting on Mon02/01/21 at 1533, When no infusion to maintain patency: For IVAD accessed, not in use, and/or prior to hospital discharge, flush every 7 days after 0.9% preservative-free NaCL flush. For IVAD NOT accessed or used, flush every 4 weeks after 0.9% preservative-free NaCL flush. ondansetron (PF) injection 8 mg (ZOFRAN) Given 02/01/2021 3:38 PM CDT 8 mg 8 mg, intravenous, Once, On Mon02/01/21 at 1545, For 1 dose sodium chloride 0.9 % injection 10 mL Given 02/01/2021 4:29 PM CDT 10 mL 10 mL, intra-catheter, As needed, line care, Starting on Mon02/01/21 at 1533, When IVAD Accessed and in Use: Flush prior to and following infusion, between multiple consecutive infusions, and prior to blood sampling. documented in this encounter Care Teams Pilot Safety Inspector Relationship Specialty Start Date End Date Elsewhere, Pcp PCP - General Family Medicine 08/12/20 documented as of this encounter
--- OUTSIDE RECORDS SUMMARY | 2022-06-18 16:15 | XMS_ITS | Encounter Summary ---
:1965 Author Organization [facility] Address [address] [place] [address] Care Team Providers Name Role Phone Elsewhere, Pcp Primary Care Provider Unavailable Reason for Referral Radiation Therapy (Routine) - Closed Specialty Diagnoses / Procedures Referred By Contact Refer red To Contact Diagnoses Malignant Neoplasm Of Pancreas (HCC) Marilyn Ramon M.D. [facility] Procedures Management Visit [address] [place] [address] Referral ID Status Reason Start Date Expiration Date Visits Requ ested Visits Authorized [id number] Closed 01/18/2021 01/18/2022 10 10 Reason for Visit Radiation Therapy (Routine) - Closed Specialty Diagnoses / Procedures Referred By Contact Refer red To Contact Diagnoses Malignant Neoplasm Of Pancreas (HCC) Marilyn Ramon M.D. [facility] Procedures Management Visit [address] [place] [address] Referral ID Status Reason Start Date Expiration Date Visits Requ ested Visits Authorized [id number] Closed 01/18/2021 01/18/2022 10 10 Encounter Details Date Type Department Care Team Description 01/27/2021 Hospital Encounter Department of Raymond Rehman Neoplasm Radiation Oncology Chanelle Sanchez Of Pancreas (HCC) in [place], [address] [place], [place] 1821 [facility] [address] [place], [place] [phone] (Work) [phone] Social History Tobacco Use Types Packs/Day Years [...] How often do you attend hoahaoism or restoration services? 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 hstrmo-xfwztwoq-eybetfb Take 1-2 capsules by 120 capsule 0 [...] tablet (8 mg 30 tablet 3 05/1 03/202108/16/2021 mg tabletIndications: total) by mouth Malignant Neoplasm Of every 8 (eight) Pancreas (HCC) hours as needed for nausea or vomiting. documented as of this encounter Progress Notes Raymond Rehman M.D. - 01/27/2021 8:30 AM CDT SUBJECTIVE REASON FOR VISIT Evaluation for side effects while receiving radiation treatment for 1. Malignant Neoplasm Of Pancreas (HCC) SUPERVISED BY: Raymond Rehman M.D. ([id number]) HISTORY OF PRESENT ILLNESS Mr. Adam Campbell is a 55 y.o. male with an unresectable pancreatic cancer who has received minimal chemotherapy due to poor tolerance and recurrent cholangitis. He is now undergoing definitive radiation with weekly gemcitabine that will be delivered in [place]. Treatment Course: 1x Pancreas Plan ID Fractions Dose / Fraction (cGy) Dose Treated (cGy) Dose Planned (cGy) First Treatment Last Treatment Elapsed Days F1 Pancreas [phone] 01/25/2021 01/27/2021 2 Course Summary 01/25/2021 01/27/2021 2 The patient was seen and examined today with Dr. Rehman. The patient reports nausea more constant despite taking Zofran twice a day. He went to the [facility] ED on Monday due to severe back pain. He is now taking 1.5 tablets of Dilaudid every 3-4 hours and he took a dose of Toradol this morning for the back pain. He denies vomiting, fevers, chills, diarrhea or bloating or other new symptoms or concerns. PATIENT REPORTED SYMPTOM SCREEN FATIGUE (Scale: 0 = no fatigue; 10 = worst fatigue you can imagine): 0 PAIN (Scale: 0 = no pain; 10 = worst pain you can imagine): back OVERALL QUALITY OF LIFE (Scale: 0 = as bad as can be; 10 = as good as can be): 7 OBJECTIVE BP 113/73 (BP Location: Right arm, Patient Position: Sitting, Cuff Size: Regular) Pulse 66 Temp 36 ??C (Temporal) Wt 68.7 kg BMI 22.77 kg/m?? PHYSICAL EXAM General: Alert and oriented in no apparent distress. ASSESSMENT / PLAN #1 Unresectable Stage IB, T2 N0 M0 pancreatic adenocarcinoma, s/p neoadjuvant chemotherapy #2 Definitive radiation therapy along with weekly gemcitabine initiated on January 25, 2021; anticipatedcompletion on March 01, 2021 Patient's nausea could be related to both chemotherapy and radiation therapy. Patient can take Zofran every 8 hours as needed for management of nausea. I have sent communication to Palliative and Medical Oncology nursing to inquire about further anti-emetic assistance for patient. Palliative care has followed up with patient after his recent [facility] ED visit due to severe back pain. I will visit with patient in a nurse visit this Monday to reassess. He will contact us with any questions or concerns. We will continue with radiation treatment as planned. Signed by: Marylou Vasquez R.N. 01/27/2021 8:58 AM CDT I saw and evaluated the patient and participated in the patel portions of the service. I reviewed the documentation of Marylou Vasquez R.N. and agree with the findings and plan. The patient appears well onexam. He is here today with his . He appears fatigued. He is experiencing treatment related nausea but no vomiting despite Zofran 8 mg twice daily. He cannot take Compazine because it makes him jittery. We will inquire of our medical oncology colleagues about the recommendations for further antiemetic therapy. The patient verbalized satisfaction with this plan. He will continue with treatment as planned. Signed by: Raymond Rehman M.D. 01/27/2021 6:24 PM CDT [facility] Radiation Therapy Center [address] [place] [address] documented in this encounter Plan of Treatment Upcoming Encounters Date Type Specialty Care Team Description 06/22/2022 Lab Laboratory Medicine Maria Del Rosario Gomez AP RN, C.N.P., M.S. [address] [place] [phone] (Mj rk) 06/22/2022 Infusion Oncology Maria Del Rosario Gomez APRN, C.N .P., M.S. [address] [place] [phone] (Mj godoy) 06/29/2022 Lab Laboratory Medicine Maria Del Rosario Gomez AP RN, C.N.P., M.S. [address] [place] [phone] (Wo rk) 06/29/2022 Infusion Oncology Maria Del Rosario Gomez, GUERO, C.N .P., M.S. [address] [place], [place] [phone] (Wo rk) Scheduled Orders Name Type Priority Associated Diagnoses Order S chedule Management Visit Radiation Oncology Routine Malignant Neoplasm Once for 1 Of Pancreas (HCC) Occurrence s starting 01/27/2021 unti l 01/27/2021 documented as of this encounter Visit Diagnoses Diagnosis Malignant Neoplasm Of Pancreas (HCC) documented in this encounter Care Teams Human Resource Adviser Relationship Specialty Start Date End Date Elsewhere, Pcp PCP - General Family Medicine 08/12/20 documented as of this encounter
--- OUTSIDE RECORDS SUMMARY | 2022-06-18 16:15 | XMS_ITS | Encounter Summary ---
:1965 Author Organization [facility] Address [address] [place] [address] Care Team Providers Name Role Phone Elsewhere, Pcp Primary Care Provider Unavailable Reason for Referral Outpatient (Routine) - Closed Specialty Diagnoses / Procedures Referred By Contact Refer red To Contact Oncology Maria Del Rosario Gomez APRN C.N.P., [facility] 200 [place] [address] Referral ID Status Reason Start Date Expiration Date Visits Requ ested Visits Authorized [id number] Closed 01/22/2021 01/22/2022 1 1 utpatient (Routine) - Closed Specialty Diagnoses / Procedures Referred By Contact Refer red To Contact Oncology Maria Del Rosario Gomez APRN, C.N.P., [facility] 200 [place], [place] [address] Referral ID Status Reason Start Date Expiration Date Visits Requ ested Visits Authorized [id number] Closed 01/22/2021 01/22/2022 1 1 Encounter Details Date Type Department Care Team Description 01/22/2021 Clinical Communication Department of Sohan Oncology in [place], [place] 200 [facility] 200 [place] [phone] Social History Tobacco Use Types Packs/Day Years [...] How often do you attend hoahaoism or episcopalian services? 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 [address] [place] [phone] (Mj godoy) 06/22/2022 Infusion Oncology Maria Del Rosario Gomez APRN, C.N .P., M.S. [address] [place] [phone] (Mj godoy) 06/29/2022 Lab Laboratory Medicine Maria Del Rosario Gomez AP RN, C.N.P., M.S. [address] [place] [phone] (Mj godoy) 06/29/2022 Infusion Oncology Maria Del Rosario Gomez APRN, C.N .P., M.S. [address] [place], [place] [phone] (Wo rk) Scheduled Referrals Name Type Priority Associated Diagnoses Order S [facility] Oncology office Outpatient Referral Routine Expec sally: visit (clinic) 02/09/2021 (Approximate), Expires: 01/23/2024 Oncology nurse Outpatient Referral Routine Expect ed: visit (clinic) 02/01/2021 (Approximate), Expires: 01/23/2024 documented as of this encounter Results (ABNORMAL) CBC with Differential, Blood (02/11/2021 1:49 PM CDT) [facility] Method Time Signature Hemoglobin 11.9 (L) [...] Laterality Blood (Blood, 02/11/2021 1:49 PM 02/12/20 21 2:27 Venous) CDT PM CDT Maria Del Rosario Gomez APRN, C.N.P., M.S. LAB BLOOD ADD-ON Performing Organization Address City/State/ZIP Code Phon e Number [facility] - [address] [place], [place] [address] [facility] [place] [address] Laboratories-[facility] [address] documented in this encounter Visit Diagnoses Diagnosis Malignant Neoplasm Of Pancreas (HCC) - P rimary documented in this encounter Care Teams Assembly Loader Relationship Specialty Start Date End Date Elsewhere, Pcp PCP - General Family Medicine 08/12/20 documented as of this encounter
--- OUTSIDE RECORDS SUMMARY | 2022-06-18 16:15 | XMS_ITS | Encounter Summary ---
:1965 Author Organization [facility] Address [address] [place] [phone] Care Team Providers Name Role Phone Elsewhere, Pcp Primary Care Provider Unavailable Reason for Referral Outpatient (Routine) Specialty Diagnoses / Procedures Referred By Contact Refer red To Contact Oncology Ulises Cardenas M.D. [address] [phone] Referral ID Status Reason Start Date Expiration Date Visits Requ ested Visits Authorized Scheduling Instructions With Ms Gomez or Dr Murray Reason for Visit Reason Comments Consult onc est gih pancreatic pre c hemo gig Outpatient (Routine) - Closed Specialty Diagnoses / Procedures Referred By Contact Refer red To Contact Oncology Deborah Murray M.B.B.S . [address] [phone] Referral ID Status Reason Start Date Expiration Date Visits Requ ested Visits Authorized [id number] Closed 12/31/2020 12/31/2021 1 1 Encounter Details Date Type Department Care Team Description 01/18/2021 Office Visit Department of Oncology Maria Del Rosario Gomez APRN, C.N.P., M.S. [address] [place] [phone] Malignant Neoplasm Of in [place], Ulises Cardenas M.D. [address] [place] [phone] Pancreas (HCC) [place] (Primary Dx) 200 [place] [phone] Social History Tobacco Use Types Packs/Day Years [...] How often do you attend mandaeism or jainism services? 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 - 01/18/2021 9:00 AM CDT SUBJECTIVE CHIEF COMPLAINT: Localized pancreatic cancer, unresectable due to comorbidities. History of pancreatitis with infected necrosis. PRIMARY CARE PHYSICIAN ELSEWHERE, PCP REQUESTING PROVIDER Deborah Murray M.B.B.S. [address] [place] [address] LOCAL ONCOLOGIST None PRIMARY PRINCETON ONCOLOGIST Deborah Murray M.B.B.S. Maria Del Rosario Gomez APRN, C.N.P., M.S. REASON FOR CONSULT Adam Campbell is a 55 y.o. male with the following oncologic history: HISTORY OF PRESENT ILLNESS Oncology History Oncology [...] ( with Radiation ) Start Date: 01/25/2021 (Planned) INTERVAL HISTORY: Mr. Adam Campbell is a 55-year-old gentleman with localized T2N0 pancreatic cancer (located inthe uncinate process) that is unresectable due to his comorbidities (including pancreatitis and peripancreatic abscess), who presents today to Oncology clinic for follow-up evaluation. He has previously been followed by Dr. Dbeorah Hunter Ma. Mr. Campbell was first diagnosed with pancreatic cancer in July 2020 with EUS- guided FNA demonstrating pancreatic adenocarcinoma on 07/19/2020. He underwent ERCP on 07/29/2020, complicated by pancreatitis, peripancreatic abscess and bacteremia. He was then rehospitalized on 10/01/2020 due to cholangitis in the setting of CBD stricture s/p CBD stenting. He underwent one cycle of chemotherapy with gemcitabine/paclitaxel on 10/16/2020; however, this was put on hold after he developed pancreatitis. Mr. Campbell was evaluated by Dr. Travis on 12/31 and deemed to not be a surgical candidate. Dr. Travis advised palliative management. He was seen by Dr. Murray on 12/[address] Murray advised that Mr. Campbell see radiation oncology for consideration of radiation or chemoradiation given his significant infectious complications from his first round of systemic chemotherapy. Given ongoing abdominal and back pain attributed to his pancreatic mass, Mr. Campbell underwent celiac block on 01/12 with good pain relief for only 2 days. He now feels that his back pain is worse than before. Palliative Medicine is currently following with Mr. Campbell and managing his cancer-related pain. Mr. Campbell met with Radiation Oncology on 01/15, who advised chemoradiation as destination therapy with delivery of 50 Gy in 25 fractions along with weekly gemcitabine. He underwent radiation planning simulation on 01/15 with plan to commence treatment on approximately 01/25, dependent on insurance approval. REVIEW OF SYSTEMS Constitutional: Positive for fatigue and weight loss of approximately 50 pounds since diagnosis. No fever or chills. Skin: No rashes. HEENT: No vision problems. No scleral icterus. Respiratory: Positive for mild exertional dyspnea. No cough or wheezing. Cardiovascular: No chest pain. No palpitations. No lower extremity edema. Gastrointestinal: Positive for abdominal (belly) pain, mostly in the lower quadrants. Genitourinary: Increased urinary frequency at night. Musculoskeletal: Positive for back pain. Neurological: Positive for excessive daytime sleepiness. No headache or slurred speech. Psychiatric/Behavioral: Positive for excessive daytime sleepiness/tiredness. OBJECTIVE BP 99/67 (BP Location: Left arm, Patient Position: Sitting, Cuff Size: Regular) Pulse 84 Temp (!) 35.7 ??C (Tympanic) Wt 69.1 kg SpO2 98% BMI 22.90 kg/m?? PHYSICAL EXAM General: Alert and oriented male in no acute distress. Skin: No concerning skin lesions. No jaundice noted. Eyes: Sclerae anicteric. Heart: Regular rate and rhythm. No murmurs, rubs or gallops. Lungs: Clear to auscultation bilaterally without wheezes, rales or rhonchi. Spine: No tenderness with palpation. Abdomen: Nondistended. Some guarding present but no rigidity. Mild tenderness throughout all quadrants. No hepatosplenomegaly. Extremities: Warm and well perfused. LABORATORY DATA Labs (01/15/2021): CA 19-9: 7 U/mL (wnl) CMP: wnl. Cr 0.77 (eGFR>90) CBC: normocytic anemia (Hgb 10.9, MCV 82). WBC 7.8. Plt 220. Anemia is stable RADIOLOGICAL DATA Radiology data reviewed. ASSESSMENT / PLAN #Malignant Neoplasm of Pancreas Mr. Campbell is a 55-year-old gentleman with localized T2N0 pancreatic cancer (located in the uncinate process) that is unresectable due to his comorbidities (including pancreatitis and peripancreatic abscess), who presents today to Oncology clinic for follow-up evaluation prior to initiating chemoradiation therapy. He has previously been followed by Dr. Deborah Hunter Ma. Mr. Campbell was seen by Dr. Travis on 12/31 and unfortunately deemed to not be a surgical candidate due to ongoing active comorbidities including peripancreatic abscess and pancreatitis. He met with Dr. Meza 12/31, who referred Mr. Campbell to radiation oncology for consideration of radiation or chemoradiation given that Mr. Campbell had suffered significant infectious complications following his first round of chemotherapy with gemcitabine/paclitaxel. Radiation Oncology plans to proceed with 25 radiation treatments. We agree with proceeding with chemoradiation as destination therapy with administration of weekly gemcitabine together with delivery of 50 Gy in 25 fractions over 5 weeks. Gemcitabine will be administered at a lower radiosensitizing dose that we hope will be more tolerable. As Mr. Campbell is not a surgical candidate, his chemoradiation therapy would be considered destinationtherapy with goal of providing prolonged local control of his pancreatic mass. The role of concurrent chemotherapy is to act as a radiosensitizer. There will be a low threshold to stop chemotherapy given Mr. Campbell???s prior issues. He will receive [place], but radiation treatments will be delivered in [place]. The initial day of therapy will depend on insurance approval, which iscurrently pending. PATIENT EDUCATION Ready to learn, no apparent learning barriers were identified; learning preferences include listening. Explained diagnosis and treatment plan; patient expressed understanding of the content. I discussed the assessment and plan with Dr. Ulises Cardenas. Baljit Pack M.D. Resident Physician Internal Medicine Pager #: [phone] 01/18/21 Ulises Cardenas M.D. - 01/18/2021 9:00 AM CDT SUBJECTIVE PRIMARY CARE PHYSICIAN ELSEWHERE, PCP REQUESTING PROVIDER Deborah Murray M.B.B.S. [address] [place] [address] LOCAL ONCOLOGIST No care team facilitator to display PRIMARY PRINCETON ONCOLOGIST Deborah Murray M.B.B.S. Maria Del Rosario Gomez APRN, C.NValerie., M.S. REASON FOR CONSULT Adam Campbell is a 55 y.o. male who presents for evaluation of locally advanced pancreatic carcinoma. History and exam is well outlined by Dr. Baljit Pack's note from today. Patient is back toinitiate combined modality therapy. He has had multiple complications from his locally advanced disease. At this point is felt not to be surgically resectable and plan is to pursue combined radiation therapy along with single agent weekly gemcitabine. His pain is being managed by palliative Medicine. PMH, PSH, SHx, FHx, and ROS as well outlined in electronic record and in Dr. Baljit Pack's note from today. EXAM Vitals: 01/18/21 0847 BP: 99/67 Pulse: 84 Temp: (!) 35.7 ??C SpO2: 98% LABORATORY DATA Lab data reviewed. Current blood counts were reviewed. CBC shows stable hemoglobin at 10.9 with normal liver function tests. RADIOLOGICAL DATA Radiology data reviewed. Previous CT scan from early December 2020 was reviewed. ASSESSMENT / PLAN #1 Malignant Neoplasm Of Pancreas (HCC) I went over these findings with Mr. Campbell and his . He is scheduled to initiate treatment next week and I have signed off on single agent gemcitabine treatment. If indeed his radiation therapy is denied by insurance, we will need to delayed further treatment. He still wants to pursue treatment here in [place] with possible radiation therapy in [place]. We will try to coordinate this. He had several questions with regard to his prognosis. He has been told that he is not a surgical candidate. I discussed the fact that without surgery, everything is palliative in nature. We talked about past trials and median overall survival for patients with locally advanced pancreatic cancer as well metastatic pancreatic carcinoma. I discussed some of the newer trial showing median survival in these several year range. In the past before combination chemotherapy treatments, median survival for locally advanced disease was more in the one year range. I told him that currently he does not have any signs of distant spread on his scans. This is favorable given the fact that he has been diagnosed about six months ago and has only had one dose of combination chemotherapy. Hopefully as relatively slow growing tumor with possible favorable response to combined modality therapy. I once again discussed prognosis but told him that median survival is only a number and there are several other factors that come into play. I am not sure whether he will be able to undergo combination chemotherapy in the future depending on other comorbid conditions. He and his seem to understand and still wished to pursue combination treatment at this time. As for his pain management, this should continue with palliative Medicine. He did gain benefit from the celiac block would only lasted a few days. PATIENT EDUCATION Ready to learn, no apparent learning barriers were identified; learning preferences include listening. Explained diagnosis and treatment plan; patient expressed understanding of the content. I have seen the patient and concur with the assessment, evaluation, and recommendations of Dr. Nnamdi Pack, as stated in this note. ADMINISTRATIVE BILLING I personally spent 40 minutes in care of the patient today. Time includes both non face to face and face to face patient care. documented in this encounter Plan of Treatment Upcoming Encounters Date Type Specialty Care Team Description 06/22/2022 Lab Laboratory Medicine Maria Del Rosario Gomez AP RN, C.N.P., M.S. [address] [place] [phone] (Mj godoy) 06/22/2022 Infusion Oncology Maria Del Rosario Gomez APRN, C.N .P., M.S. [address] [place] [phone] (Wo rk) 06/29/2022 [facility] [address] [place], [place] [phone] (Wo rk) 06/29/2022 Infusion Oncology Maria Del Rosario Gomez APRN, C.N .P., M.S. 200 [place], [place] [phone] (Wo rk) Scheduled Referrals Name Type Priority Associated Diagnoses Order S [facility] Oncology office Outpatient Referral Routine Malignant Neoplasm Expected: visit (clinic) Of Pancreas (HCC) 02/17/20 21, Expires: 02/17/2024 documented as of this encounter Results (ABNORMAL) [...] 02/19/2021 DTL Black/ mL/min/BSA 8:15 AM CDT Argentine Comment: ----ADDITIONAL INFORMATION---- Estimated GFR calculated using [...] Laterality Blood (Blood, 02/19/2021 7:26 AM 02/20/20 7:35 Venous) CDT AM CDT Ulises Cardenas M.D. LAB BLOOD ADD-ON Performing Organization Address City/State/ZIP Code Phon e Number [facility] - [address] [place] [phone] [facility] [place] [place] [address] [facility] 200 [facility] (ABNORMAL) CBC, Chemotherapy, No Alerts (02/19/2021 7:26 [...] Organization Address City/State/ZIP Code Phon e Number [facility] - 200 [place], [place] [address] [facility] [place] [address] [facility] 200 [facility] Comprehensive Metabolic Panel (02/11/2021 1:49 PM CDT) [...] 02/11/2021 DTL Black/ mL/min/BSA 3:07 PM CDT Argentine Comment: ----ADDITIONAL INFORMATION---- Estimated GFR calculated using [...] Organization Address City/State/ZIP Code Phon e Number [facility] - 200 [place], [place] [address] [facility] [place] [place] [address] [facility] 200 [facility] (ABNORMAL) Comprehensive Metabolic Panel (02/01/2021 1:20 PM [...] 02/01/2021 DTL Black/ mL/min/BSA 2:21 PM CDT Argentine Comment: ----ADDITIONAL INFORMATION---- Estimated GFR calculated using [...] Organization Address City/State/ZIP Code Phon e Number [facility] - [address] [place], [place] [address] [facility] [place] [address] [facility] [address] (ABNORMAL) CBC, Chemotherapy, No Alerts (02/01/2021 1:20 [...] Laterality Blood (Blood, 02/01/2021 1:20 PM 02/02/20 21 1:35 Venous) CDT PM CDT Ulises Cardenas M.D. LAB BLOOD ADD-ON Performing Organization Address City/State/ZIP Code Phon e Number [facility] - [address] [place], [place] [address] [facility] [place] [place] [address] [facility] [address] documented in this encounter Visit Diagnoses Diagnosis Malignant Neoplasm Of Pancreas (HCC) - P rimary documented in this encounter Care Teams Senior Security Architect Relationship Specialty Start Date End Date Elsewhere, Pcp PCP - General Family Medicine 08/12/20 documented as of this encounter
--- OUTSIDE RECORDS SUMMARY | 2022-06-18 16:15 | XMS_ITS | Encounter Summary ---
:1965 Author Organization [facility] Address [address] [place] [address] Care Team Providers Name Role Phone Elsewhere, Pcp Primary Care Provider Unavailable Encounter Details Date Type Department Care Team Description 01/15/2021 Clinical Communication Department of Oncology Maria Del Rosario Gomez in [facility], GUERO, C.N.P., [facility] [address] [facility] [address] [place] [phone] Social History Tobacco Use Types Packs/Day Years [...] How often do you attend pentecostalism or sabianist services? 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 [address] [place] [phone] (Wo rk) 06/22/2022 Infusion Oncology Maria Del Rosario Gomez APRN, C.N .P., M.S. [address] [place] [phone] (Wo rk) 06/29/2022 Lab Laboratory Medicine Maria Del Rosario Gomez AP RN, C.N.P., M.S. [address] [place] [phone] (Wo rk) 06/29/2022 Infusion Oncology Maria Del Rosario Gomez APRN, C.N .P., M.S. [address] [place] [phone] (Wo rk) documented as of this encounter Visit Diagnoses Not on filedocumented in this encounter Additional Health Concerns Infection Onset Date Last Indicated Resolved Time COVID19 Pending 01/15/2021 01/15/2021 01/15/2021 6:06 PM CDT documented as of this encounter Care Teams Atmospheric Drier Tender Relationship Specialty Start Date End Date Elsewhere, Pcp PCP - General Family Medicine 08/12/20 documented as of this encounter
--- OUTSIDE RECORDS SUMMARY | 2022-06-18 16:15 | XMS_ITS | Encounter Summary ---
:1965 Author Organization [facility] Address [address] [place] [phone] Care Team Providers Name Role Phone Elsewhere, Pcp Primary Care Provider Unavailable Reason for Visit Radiation Therapy (Routine) - Closed Specialty Diagnoses / Procedures Referred By Contact Refer red To Contact Diagnoses Malignant Neoplasm Of Pancreas (HCC) Lesia Silva M.D., Ph.D. [facility] Procedures Initial Rad Onc Treatment Planning CT Simulation [address] [place] [phone] Referral ID Status Reason Start Date Expiration Date Visits Requ ested Visits Authorized [id number] Closed 01/15/2021 01/15/2022 1 1 Encounter Details Date Type Department Care Team Description 01/15/2021 Hospital Encounter Department of Lesia Silva M .D., Ph.D. [address] [place] [phone] Malignant Neoplasm Radiation Oncology Meryl Gaston R.N. [address] [place] [phone] Of Pancreas (HCC) in [place], (Primary Dx) [place] [address] [place] [phone] Social History Tobacco Use Types Packs/Day Years [...] How often do you attend catholic or sikh services? 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 HYDROmorphone Take 1.5 tablets (6 35 tablet 0 01/03/2021 (DILAUDID) 4 mg mg total) by mouth tabletIndications: every 3 (three) Chronic Pain/Nonacute hours as needed for Pain pain Indication: Chronic Pain/Nonacute Pain. lidocaine-prilocaine APPLY TOPICALLY 0 021 01/18/2021 (EMLA) 2.5-2.5 % cream NEEDED (30 MINUTES PRIOR TO PORT ACCESS) jmgnzv-potmsynr-alxtjla Take 1-2 capsules by 120 capsule 0 [...] as of this encounter Progress Notes Meryl Gaston R.N. - 01/15/2021 11:00 AM CDT Has patient received IV contrast in the past? Yes History of adverse reaction to the contrast? no History of heart problems (CHF)? No History of kidney problems (current or history of dialysis, single kidney, kidney transplant)? no History of asthma? No Current inhaler use? no History of diabetes? No Taking Metformin? no If yes, written instructions given: Instructions for taking metformin after an injection of iodinated contrast material, [id number] Lab Results Component Value Date CREATININE 0.77 01/15/2021 Central Line: Yes Line Type: IVAD Power Injectable: Yes Power Injectable Identifiers Used: [place] or Outside medical record (Date 11/05/2020) and 3 Bumps on [place] Shape Septum Tip Placement Verified: Yes Tip Placement Location: SVC Verified Date: November 05, 2020 Blood Return Verified: Yes Procedural pause conducted by RN and RTT staff to verify: correct patient identity, correct IV contrast protocol and delay time Patient tolerated the procedure well. Discharge instructions were given. documented in this encounter Plan of Treatment Upcoming Encounters Date Type Specialty Care Team Description 06/22/2022 Lab Laboratory Medicine Maria Del Rosario Gomez AP RN, C.N.P., M.S. [address] [place] [phone] (Wo rk) 06/22/2022 Infusion Oncology Maria Del Rosario Gomez APRN, C.N .P., M.S. [address] [place] [phone] (Wo rk) 06/29/2022 Lab Laboratory Medicine Maria Del Rosario Gomez AP RN, C.N.P., M.S. [address] [place] [phone] (Wo rk) 06/29/2022 Infusion Oncology Maria Del Rosario Gomez APRN, C.N .P., M.S. [address] [place] [phone] (Wo rk) documented as of this encounter Visit Diagnoses Diagnosis Malignant Neoplasm Of Pancreas (HCC) - P rimary documented in this encounter Administered Medications Inactive Administered Medications - up to 3 most recent administrations Medication Order MAR Action Action Date Dose Rate Site heparin flush 500 Units Given 01/15/2021 12:10 PM CDT 500 Units 500 Units, intra-catheter, During hospitalization, line care, Prior to discharge, Starting on Mon01/15/21 at 1121, For 1 dose, Implanted Vascular Access Device (IVAD) Venous Non-Valved: Following saline flush prior to discharge. iohexoL 300 mg iodine/mL solution 140 mL Given 01/15/2021 12:04 PM CDT 140 mL (OMNIPAQUE) 140 mL, intravenous, Once in imaging, contrast, Starting on Mon01/15/21 at 1122, For 1 dose, If administered oral then dilute in 900 mL water NaCl 0.9 % bolus 50 mL New Bag 01/15/2021 12:04 PM CDT 50 mL 3000 mL/hr 50 mL, intravenous, at 3,000 mL/hr, Administer over 1 Minutes, Once, On Mon01/15/21 at 1145, For 1 dose, With imaging sodium chloride 0.9 % injection 10 mL Given 01/15/2021 12:04 PM CDT 10 mL 10 mL, intravenous, During hospitalization, line care, Prior to discharge, Starting on Mon01/15/21 at 1121, For 1 dose, Implanted Vascular Access Device (IVAD) Venous Non-Valved: Followed by heparin flush prior to discharge. documented in this encounter Care Teams Homicide Squad Lieutenant Relationship Specialty Start Date End Date Elsewhere, Pcp PCP - General Family Medicine 08/12/20 documented as of this encounter
--- OUTSIDE RECORDS SUMMARY | 2022-06-18 16:15 | XMS_ITS | Encounter Summary ---
:1965 Author Organization [facility] Address [address] [place] [address] Care Team Providers Name Role Phone Elsewhere, Pcp Primary Care Provider Unavailable Encounter Details Date Type Department Care Team Description 01/15/2021 Lab Department of Laboratory [place], Efren Wilks, Contact With And Medicine and Pathology, Pratik JACK N.Pamela., M.S. (Suspected) Exposure To [facility], in [address] [place] [address] COVID-19 [place], [place] [address] [place] [phone] [place] [address] [phone] Social History Tobacco Use Types Packs/Day Years [...] How often do you attend moravian or faith services? 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 [address] [place] [address] [phone] (Mj rk) 06/22/2022 Infusion Oncology Maria Del Rosario Gomez APRN, C.N .P., M.S. [address] [place] [address] [phone] (Mj rk) 06/29/2022 Lab Laboratory Medicine Maria Del Rosario Gomez AP RN, C.N.P., M.S. [address] [place] [address] [phone] (Mj godoy) 06/29/2022 Infusion Oncology Maria Del Rosario Gomez APRN, C.N .P., M.S. [address] [place] [address] [phone] (Mj rk) documented as of this encounter Procedures Procedure Name Priority Date/Time Associated Diagnosis Comme nts SARS COV-2 RNA, Routine 01/15/2021 12:56 PM Contact With And R esults for this PCR, VARIES CDT (Suspected) Exposure procedu re are in To COVID-19 the results section. documented in this encounter Results SARS CoV-2 RNA, PCR, Varies Asymptomatic (01/15/2021 12:56 PM CDT) [facility] Method Time Signature SARS CoV-2 Swab, 01/15/2021 DTL RNA, PCR, Nasopharynx 6:05 PM CDT Source SARS CoV-2 Undetected Undetected 01/15/2021 DTL RNA, PCR 6:05 PM CDT Comment: SARS-CoV-2 RNA absent. This result [...] Drug Administration an d is used per software quality assurance specialist's instructions. Performance characteristics were verified by [facility] in a manner consistent with CLIA requirements. Visit the CDC website: https://www.cdc.g ov/coronavirus/ for the most recent guidelines on Coron avirus testing. Fact Sheet for Healthcare Providers: https://www.fda.gov/media/540781/downloa d Fact Sheet for Patients: https://www.fda.gov/media/774511/downloa d Specimen Anatomical Collection Method Collection Time Receive d Time (Source) Location / / Volume Laterality Varies 01/15/2021 12:56 01/15/2021 2:18 (Nasopharynx) PM CDT PM CDT Efren Hyman APRN, C.N.P., M.S. LAB MICROBIOLOGY - [facility] ORDERABLES Performing Organization Address City/State/[facility] Code Phon e Number [facility] - [address] [place], [place] [address] [facility] [place] [address] Laboratories-[facility] [address] documented in this encounter Visit Diagnoses Diagnosis Contact With And (Suspected) Exposure To COVID-19 documented in this encounter Additional Health Concerns Infection Onset Date Last Indicated Resolved Time COVID19 Pending 01/15/2021 01/15/2021 01/15/2021 6:06 PM CDT documented as of this encounter Care Teams Custom Miller Relationship Specialty Start Date End Date Elsewhere, Pcp PCP - General Family Medicine 08/12/20 documented as of this encounter
--- OUTSIDE RECORDS SUMMARY | 2022-06-18 16:15 | XMS_ITS | Encounter Summary ---
:1965 Author Organization [facility] Address [address] [place] [address] Care Team Providers Name Role Phone Elsewhere, Pcp Primary Care Provider Unavailable Reason for Referral Outpatient (Routine) - Closed Specialty Diagnoses / Procedures Referred By Contact Refer red To Contact Radiation Oncology Diagnoses Malignant Neoplasm Of Pancreas (HCC) Efren Hyman APRN, [facility] C.N.P., M.S. 200 [place] [address] Referral ID Status Reason Start Date Expiration Date Visits Requ ested Visits Authorized [id number] Closed 01/15/2021 01/15/2022 1 1 Scheduling Instructions Please schedule consult to meet Dr. Nicky mcneill or Dr. Ramon prior to start of RT in [place]. Pt will receive weekly gemci tabine in [place]. Reason for Visit Outpatient (Routine) - Closed Specialty Diagnoses / Procedures Referred By Contact Refer red To Contact Radiation Oncology Diagnoses Malignant Neoplasm Of Pancreas (HCC) Efren Hyman APRN, [facility] C.N.P., M.S. 200 [place] [address] Referral ID Status Reason Start Date Expiration Date Visits Requ ested Visits Authorized [id number] Closed 01/15/2021 01/15/2022 1 1 Encounter Details Date Type Department Care Team Description 01/25/2021 Hospital Encounter Department of Marilyn Ramon Neoplasm Radiation Oncology Chanelle Allen Of Pancreas (HCC) in [place], [address] [place] [address] [facility] [address] [place], [place] [phone] (Work) [phone] Social History Tobacco Use Types Packs/Day Years [...] How often do you attend sikh or pentecostalism services? 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 [id number] Take 1-2 capsules by 120 capsule 0 [...] or vomiting. documented as of this encounter Consult Notes Marilyn Ramon M.D. - 01/25/2021 3:30 PM CDT RADIATION ONCOLOGY CONSULTATION SUBJECTIVE REQUESTING PROVIDER Efren Hyman APRN, C.N.PRiaz and Dr. Lesia Silva, Radiation Oncology [place] PRIMARY PROVIDER Adrian Mills MD REASON FOR CONSULT Asked to see patient by Riaz Boogie and Dr. Silva to help assist with delivery of radiation therapy closer to home as he was seen and planned in [place]. He will start his treatments today. HISTORY OF PRESENT ILLNESS #1 Pancreatic cancer Mr. Campbell is a 55 year old male with an unresectable pancreatic cancer who has received minimal chemotherapy due to poor tolerance and recurrent cholangitis. He is now starting definitive radiation with weekly gemcitabine that will be delivered in [place]. His oncologic history was reviewed with the patient and his /daughter and is as follows: Oncology History Malignant Neoplasm [...] ( with Radiation ) Start Date: 01/25/2021 INTERVAL HISTORY Mr. Campbell had a difficult time with chemotherapy due to his hospitalizations. He had a celiac block on 01/12 which helped with his pain for two days, but his pain is now worse. He has seen our Palliativecare team. He received his gemcitabine this morning. The patient reports that today is a bad day for him. He states that he has bad days every two or three days. He was in [place] today and that makes it tough too. His pain is severe, but he knows ifhe can take the medications that it will improve. He is fasting now for his first radiation treatment. The patient denies a history of prior radiation therapy. REVIEW OF SYSTEMS Review of systems was negative except as documented above. PATIENT REPORTED SYMPTOM SCREEN FATIGUE (Scale: 0 = no fatigue; 10 = worst fatigue you can imagine): 0 PAIN (Scale: 0 = no pain; 10 = worst pain you can imagine): 8.5 OVERALL QUALITY OF LIFE (Scale: 0 = as bad as can be; 10 = as good as can be): 7 PAST MEDICAL HISTORY Past Medical History: Diagnosis Date ??? Adjustment Disorder Mixed Reaction ??? Bacteremia 08/15/2020 ??? Carpal Tunnel Syndrome Right ??? Diarrhea ??? Dysfunction Erectile 08/18/2020 ??? Gastroesophageal Reflux Disease NOS 10/31/2012 ??? Headache Unspecified ??? Malignant Neoplasm Of Pancreas (HCC) 07/30/2020 ??? Murmur Heart 11/28/2010 Echocardiogram done on 03/20/2008. ??? Pain Abdominal NOS ??? Pancreatitis Post Endoscopic Retrograde Cholangiopancreatography (HCC) 07/30/2020 ??? Portal Vein Thrombosis 08/18/2020 ??? Stone Kidney 2014 ??? Varicocele left, treated with embolization of gonadal vein PAST SURGICAL HISTORY Past Surgical History: Procedure Laterality Date ??? BREAST CYST EXCISION Right ??? CARPAL TUNNEL RELEASE ??? CIRCUMCISION N/A Circumcision ??? IR GONADAL VEIN EMBOLIZATION Left ??? TONSILLECTOMY AND ADENOIDECTOMY N/A Tonsillectomy and adenoidectomy ??? TRIGGER FINGER RELEASE ??? VASECTOMY N/A Vasectomy ??? VASECTOMY 1991 SOCIAL HISTORY . Two children. Three grandchildren. Never smoker. No alcohol. FAMILY HISTORY Family History Problem Relation Age of Onset ??? Lung cancer Maternal Grandmother ??? Alcohol abuse Mother OBJECTIVE BP 125/78 (BP Location: Left arm, Patient Position: Sitting, Cuff Size: Regular) Pulse 72 Temp 36.7 ??C (Temporal) Wt 70.2 kg BMI 23.27 kg/m?? PHYSICAL EXAM General: Well-developed, well-nourished and in no apparent distress. DIAGNOSTICS I have reviewed the available imaging, operative and pathology reports as described above. ASSESSMENT / PLAN #1 Unresectable Stage IB, T2 N0 M0 pancreatic adenocarcinoma, s/p neoadjuvant chemotherapy We discussed the findings above and below in this note with the patient and his and daughter. We had a brissa, yet compassionate, discussion regarding radiation options for his pancreatic cancer. He is aware that he is not a surgical candidate due to his comorbidities. He will be having his chemotherapy delivered in [place] given his challenges with chemotherapy. The patient???s clinical and pathologic scenario was reviewed with the patient in detail. The rationale for radiotherapy was reviewed with the patient and their family. The logistics of radiotherapy simulation were reviewed with the patient utilizing the simulation booklet. We discussed treatment planning and potential strategies for minimizing dose to critical structures. The logistics of radiotherapy treatment were reviewed with the patient. Treatments are administered daily Monday through Monday,with each treatment lasting approximately 10-20 minutes. Our team approach was reviewed with the patient. He had already discussed the acute as well as custodial risks from EBRT with Dr. Silva and didn't feel up to reviewing them today. We did briefly discuss nausea and diarrhea. They understood and their questions were answered. He wished to proceed with treatment. We tentatively plan on delivering 5000 cGy in 25 fractions starting today. My thanks to Angy Anderson, Theresa, Terri, Ms. Gomez and Mr. Hyman for the opportunity to participate in this patient's care. EDUCATION Ready to learn, no apparent learning barriers were identified; learning preferences include listening. Explained diagnosis and treatment plan; patient expressed understanding of the content. CONSENT Discussed the risks, benefits, alternatives, and the necessity of other members of the healthcare team participating in the procedure. All questions answered and consent given. I personally spent 20 minutes in care of the patient today. Time includes both non face to face and face to face patient care. Signed by: Marilyn Ramon M.D. 01/25/2021 4:03 PM CDT Radiation Oncology [facility] [address] [place] [phone] documented in this encounter Miscellaneous Notes Addendum Note - Magraret Graham - 01/25/2021 3:30 PM CDT Encounter addended by: Margaret Graham on: 01/26/2021 7:56 AM Actions taken: Letter saved documented in this encounter Plan of Treatment Upcoming Encounters Date Type Specialty Care Team Description 06/22/2022 Lab Laboratory Medicine Maria Del Rosario Gomez AP RN, C.N.P., M.S. [address] [place] [address] [phone] (Mj godoy) 06/22/2022 Infusion Oncology Maria Del Rosario Gomez APRN, C.N .P., M.S. [address] [place] [address] [phone] (Mj godoy) 06/29/2022 Lab Laboratory Medicine Maria Del Rosario Gomez AP RN, C.N.P., M.S. [address] [place] [address] [phone] (Mj godoy) 06/29/2022 Infusion Oncology Maria Del Rosario Gomez APRN, C.N .P., M.S. [address] [place] [address] [phone] (Mj godoy) Scheduled Referrals Name Type Priority Associated Order Schedule Diagnoses Radiation Oncology Outpatient Referral Routine Malignant Neopl asm Once for 1 - GI consult Of Pancreas (HCC) Occurrence s starting (clinic) 01/25/2021 unti l 01/25/2021 documented as of this encounter Visit Diagnoses Diagnosis Malignant Neoplasm Of Pancreas (HCC) documented in this encounter Care Teams Delivery Architect Relationship Specialty Start Date End Date Elsewhere, Pcp PCP - General Family Medicine 08/12/20 documented as of this encounter
--- OUTSIDE RECORDS SUMMARY | 2022-06-18 16:15 | XMS_ITS | Encounter Summary ---
:1965 Author Organization [facility] Address [address] [place] [address] Care Team Providers Name Role Phone Elsewhere, Pcp Primary Care Provider Unavailable Reason for Referral Radiation Therapy (Routine) - Closed Specialty Diagnoses / Procedures Referred By Contact Refer red To Contact Diagnoses Malignant Neoplasm Of Pancreas (HCC) Lesia Silva M.D., Ph.D. [facility] Procedures Prior Auth Rad Tx [place] RADTN TX DEL >=1 MEV COMPLEX [address] [place] [address] Referral ID Status Reason Start Date Expiration Date Visits Requ ested Visits Authorized [id number] Closed 01/25/2021 01/25/2022 30 30 Encounter Details Date Type Department Care Team Description 01/25/2021 Orders Only Department of Aleksandra Cervantes Malignant Neoplasm Of Radiation Oncology in [place], RTT Pancreas (HCC) [facility] [phone] (Primary Dx) [address] (Work) [place] [address] Social History Tobacco Use Types Packs/Day Years [...] How often do you attend scientologist or uatsdin services? 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 [address] [place] [phone] (Mj godoy) 06/22/2022 Infusion Oncology Maria Del Rosario Gomez APRN, C.N .P., M.S. [address] [place] [address] [phone] (Mj godoy) 06/29/2022 Lab Laboratory Medicine Maria Del Rosario Gomez AP RN, C.N.P., M.S. [address] [place] [address] [phone] (Mj godoy) 06/29/2022 Infusion Oncology Maria Del Rosario Gomez APRN, C.N .P., M.S. [address] [place] [address] [phone] (Mj godoy) Scheduled Orders Name Type Priority Associated Diagnoses Order S chedule Prior Auth Rad Tx Radiation Oncology Routine Malignant Neoplas m Of Ordered: 01/25/2021 Pancreas (HCC) documented as of this encounter Visit Diagnoses Diagnosis Malignant Neoplasm Of Pancreas (HCC) - P rimary documented in this encounter Care Teams Plant Maintenance Technician Relationship Specialty Start Date End Date Elsewhere, Pcp PCP - General Family Medicine 08/12/20 documented as of this encounter
--- OUTSIDE RECORDS SUMMARY | 2022-06-18 16:15 | XMS_ITS | Encounter Summary ---
:1965 Author Organization [facility] Address [address] [place] [address] Care Team Providers Name Role Phone Elsewhere, Pcp Primary Care Provider Unavailable Reason for Visit Reason Comments Nurse teach Encounter Details Date Type Department Care Team Description 01/19/2021 Clinical Communication Department of Oncology Mango Rose Nurse teach in [facility] [phone] [place] (Work) [address] [place] [phone] Social History Tobacco Use Types Packs/Day Years [...] How often do you attend confucianist or baptism services? 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 [address] [place] [phone] (Wo rk) 06/22/2022 [facility] C.N .P., M.S. [address] [place] [address] [phone] (Wo rk) 06/29/2022 Lab [facility], C.N.P., M.S. [address] [place] [address] [phone] (Mj rk) 06/29/2022 [facility] C.N .P., M.S. [address] [place] [address] [phone] (Mj rk) documented as of this encounter Visit Diagnoses Not on filedocumented in this encounter Care Teams Land Development Project Manager Relationship Specialty Start Date End Date Elsewhere, Pcp PCP - General Family Medicine 08/12/20 documented as of this encounter
--- OUTSIDE RECORDS SUMMARY | 2022-06-18 16:15 | XMS_ITS | Encounter Summary ---
:1965 Author Organization [facility] Address [address] [place] [address] Care Team Providers Name Role Phone Elsewhere, Pcp Primary Care Provider Unavailable Reason for Visit Reason Comments Med Refill Encounter Details Date Type Department Care Team Description 01/20/2021 Refill Department of Palliative Care Romi White M.D. Med Refill in [facility] [address] [facility] [address] [place] [address] [place] [address] [phone] Social History Tobacco Use Types Packs/Day Years [...] How often do you attend mandaen or islam services? 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 - 01/20/2021 2:08 PM CDT Prescription Refill Request Current Prescription Regimen: Hydromorphone 4 mg tablets, 1-1.5 tablets (4-6 mg) by mouth every 3 hours as needed Last filled: 01/02/21, #75 and 01/12/21, #35 Prescribed prescription amount: Hydromorphone 4 mg tablets, #90 [place] BLOCK[place] reviewed Prescription will be e-Prescribed to the following pharmacy: [place], [place] Last Palliative appointment: 01/11/21 Next Palliative appointment: 02/11/21 Prescription was authorized by Ingrid Obregon CNP documented in this encounter Plan of Treatment Upcoming Encounters Date Type Specialty Care Team Description 06/22/2022 Lab Laboratory Medicine Maria Del Rosario Gomez AP RN, C.N.P., M.S. [address] [place] [phone] (Mj godoy) 06/22/2022 Infusion Oncology Maria Del Rosario Gomez APRN, C.N .P., M.S. [address] [place] [address] [phone] (Mj godoy) 06/29/2022 Lab Laboratory Medicine Maria Del Rosario Gomez AP RN, C.N.P., M.S. [address] [place] [address] [phone] (Mj godoy) 06/29/2022 Infusion Oncology Maria Del Rosario Gomez APRN, C.N .P., M.S. [address] [place] [address] [phone] (Mj godoy) documented as of this encounter Visit Diagnoses Not on filedocumented in this encounter Care Teams Mdm Sr Relationship Specialty Start Date End Date Elsewhere, Pcp PCP - General Family Medicine 08/12/20 documented as of this encounter
--- OUTSIDE RECORDS SUMMARY | 2022-06-18 16:15 | XMS_ITS | Encounter Summary ---
:1965 Author Organization [facility] Address [address] [place] [address] Care Team Providers Name Role Phone Elsewhere, Pcp Primary Care Provider Unavailable Reason for Visit Episode Based Medications (Routine) - Closed Specialty Diagnoses / Procedures Referred By Contact Refer red To Contact Diagnoses Malignant Neoplasm Of Pancreas (HCC) Deborah Murray M.B.B.S. Rst Onc Rogo Procedures NM GEMCITABINE HCL [address] [place] [address] [place] [phone] [place] [address] Referral ID Status Reason Start Date Expiration Date Visits Requ ested Visits Authorized [id number] Closed 01/15/2021 01/15/2022 12 12 Encounter Details Date Type Department Care Team Description 01/25/2021 Lab Department of Laboratory Deborah Murray Mal ignant Neoplasm Of Pancreas (HCC) (Primary Dx); Medicine and Pathology, M.B.B.S. [address] [place] [phone] [place] [phone] Social History Tobacco Use Types Packs/Day Years [...] How often do you attend synagogue or uatsdin services? 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 [address] [place] [phone] (Mj godoy) 06/22/2022 Infusion Oncology SolomonMaria Del Rosario pierre APRN, C.N .P., M.S. [address] [place] [address] [phone] (Mj godoy) 06/29/2022 Lab Laboratory Medicine Maria Del Rosario Gomez AP RN, C.N.P., M.S. [address] [place] [address] [phone] (Mj godoy) 06/29/2022 Infusion Oncology Maria Del Rosario Gomez APRN, C.N .P., M.S. [address] [place] [address] [phone] (Mj godoy) documented as of this encounter Procedures Procedure Name Priority Date/Time Associated Comments Diagnosis CBC WITH DIFFERENTIAL, Routine 01/25/2021 8:08 AM Malignant Ne oplasm Results for this B CDT Of Pancreas (HCC) procedure are in the results section. BILIRUBIN DIRECT, S/P Routine 01/25/2021 8:08 AM Malignant Siva plasm Results for this CDT Of Pancreas (HCC) procedure are in the results section. COMPREHENSIVE Routine 01/25/2021 8:08 AM Malignant Neoplasm Re sults for this METABOLIC PANEL, S/P CDT Of Pancreas (HCC) pr ocedure are in the results section. documented in this encounter Results Bilirubin, Direct (01/25/2021 8:08 AM CDT) athologist Signature Bilirubin, <0.2 0.0 - 0.3 01/25/2021 DTL Direct, S mg/dL 9:42 AM CDT Specimen Anatomical Collection Method Collection Time Receive d Time (Source) Location / / Volume Laterality Blood (Blood, 01/25/2021 8:08 AM 01/26/20 8:31 Venous) CDT AM CDT Deborah VillaB.S. LAB BLOOD ADD-ON Performing Organization Address City/State/ZIP Code Phon e Number [facility] - [address] [place] [phone] [facility] [place] [address] [facility] 200 [facility] Comprehensive Metabolic Panel (01/25/2021 8:08 AM CDT) athologist Signature Potassium, S 3.9 3.6 - 5.2 01/25/2021 DTL mmol/L 9:42 AM CDT Sodium, S 139 135 - 145 01/25/2021 DTL mmol/L 9:42 AM CDT Chloride, S 104 98 - 107 01/25/2021 DTL mmol/L 9:42 AM CDT Bicarbonate, S 26 22 - 29 01/25/2021 DTL mmol/L 9:42 AM CDT Anion Gap 9 7 - 15 01/25/2021 DTL 9:42 AM CDT BUN (Blood Urea 14 8 - 24 01/25/2021 DTL Nitrogen), S mg/dL 9:42 AM CDT Creatinine 0.78 0.74 - 01/25/2021 DTL 1.35 mg/dL 9:42 AM CDT eGFR-Non >90 >=60 01/25/2021 DTL Black/ mL/min/BSA 9:42 AM CDT Palestinian Comment: ----ADDITIONAL INFORMATION---- Estimated GFR calculated using the 2009 CKD_EPI creatinine equation. eGFR-Black/ >90 >=60 mL/min/BSA 2020 9:42 AM CDT DTL Comment: ----ADDITIONAL INFORMATION---- Estimated GFR calculated using the 2009 CKD_EPI creatinine equation. Calcium, Total, S 9.1 8.6 - 10.0 mg/dL 01/25/2021 9:42 AM CDT DTL Glucose, S 99 70 - 140 mg/dL 01/25/2021 9:42 AM CDT D TL Protein, Total, S 7.0 6.3 - 7.9 g/dL 01/25/2021 9:42 A M CDT DTL Albumin, S 3.6 3.5 - 5.0 g/dL 01/25/2021 9:42 AM CDT D TL Aspartate Aminotransferase (AST), 18 8 - 48 U/L 01/25 9:42 AM CDT DTL S Alkaline Phosphatase, S 95 40 - 129 U/L 01/25/2021 9: 42 AM CDT DTL Alanine Aminotransferase (ALT), S 13 7 - 55 U/L 01/25 9:42 AM CDT DTL Bilirubin, Total, S 0.3 <=1.2 mg/dL 01/25/2021 9:42 AM CDT DTL Specimen Anatomical Collection Method Collection Time Receive d Time (Source) Location / / Volume Laterality Blood (Blood, 01/25/2021 8:08 AM 01/26/20 8:31 Venous) CDT AM CDT Deborah VillaBRiazS. LAB BLOOD ADD-ON Performing Organization Address City/State/ZIP Code Phon e Number [facility] - [address] [place], [place] [address] [facility] [place] [address] [facility] [address] (ABNORMAL) CBC with Differential, Blood (01/25/2021 8:08 AM CDT) [facility] gist Method Time Signature Hemoglobin 10.7 (L) 13.2 - 01/25/2021 DTL 16.6 g/dL 8:51 AM CDT Hematocrit 34.9 (L) 38.3 - 01/25/2021 DTL 48.6 % 8:51 AM CDT Erythrocytes 4.21 (L) 4.35 - 01/25/2021 DTL 5.65 8:51 AM CDT x10(12)/L MCV 82.9 78.2 - 01/25/2021 DTL 97.9 fL 8:51 AM CDT RBC Distrib Width 16.4 (H) 11.8 - 01/25/2021 DTL 14.5 % 8:51 AM CDT Platelet Count 246 135 - 317 01/25/2021 DTL x10(9)/L 8:51 AM CDT Leukocytes 6.3 3.4 - 9.6 01/25/2021 DTL x10(9)/L 8:51 AM CDT Neutrophils 4.26 1.56 - 01/25/2021 DTL 6.45 8:51 AM CDT x10(9)/L Lymphocytes 1.26 0.95 - 01/25/2021 DTL 3.07 8:51 AM CDT x10(9)/L Monocytes 0.57 0.26 - 01/25/2021 DTL 0.81 8:51 AM CDT x10(9)/L Eosinophils 0.17 0.03 - 01/25/2021 DTL 0.48 8:51 AM CDT x10(9)/L Basophils 0.03 0.01 - 01/25/2021 DTL 0.08 8:51 AM CDT x10(9)/L Specimen Anatomical Collection Method Collection Time Receive d Time (Source) Location / / Volume Laterality Blood (Blood, 01/25/2021 8:08 AM 01/26/20 8:27 Venous) CDT AM CDT Deborah VillaBRiazS. LAB BLOOD ADD-ON Performing Organization Address City/State/ZIP Code Phon e Number [facility] - 200 [place], [place] [address] [facility] [place] [address] [facility] [address] [facility] documented in this encounter Visit Diagnoses Diagnosis Malignant Neoplasm Of Pancreas (HCC) - P rimary Bacteremia documented in this encounter Administered Medications Inactive Administered Medications - up to 3 most recent administrations Medication Order MAR Action Action Date Dose Rate Site heparin flush 500 Units Given 01/25/2021 8:01 AM CDT 500 Units 500 Units, intra-catheter, As needed, line care, Starting on Mon01/25/21 at 0748, When no infusion to maintain patency: For IVAD accessed, not in use, and/or prior to hospital discharge, flush every 7 days after 0.9% preservative-free NaCL flush. For IVAD NOT accessed or used, flush every 4 weeks after 0.9% preservative-free NaCL flush. sodium chloride 0.9 % injection 10 mL Given 01/25/2021 8:00 AM CDT 10 mL 10 mL, intra-catheter, As needed, line care, Starting on Mon01/25/21 at 0748, When IVAD Accessed and in Use: Flush prior to and following infusion, between multiple consecutive infusions, and prior to blood sampling. sodium chloride 0.9 % injection 20 mL Given 01/25/2021 8:01 AM CDT 20 mL 20 mL, intra-catheter, As needed, line care, Starting on Mon01/25/21 at 0748, When IVAD Accessed and in Use: Flush post blood transfusion or post blood sampling. documented in this encounter Care Teams Switchboard Operator Receptionist Relationship Specialty Start Date End Date Elsewhere, Pcp PCP - General Family Medicine 08/12/20 documented as of this encounter
--- OUTSIDE RECORDS SUMMARY | 2022-06-18 16:15 | XMS_ITS | Encounter Summary ---
:1965 Author Organization [facility] Address [address] [place] [address] Care Team Providers Name Role Phone Elsewhere, Pcp Primary Care Provider Unavailable Reason for Referral Specialty Diagnoses / Procedures Referred By Contact Refer red To Contact Deborah Murray M.B.B.S . [place] [address] [place] [address] Referral ID Status Reason Start Date Expiration Date Visits Requ ested Visits Authorized Encounter Details Date Type Department Care Team Description 01/15/2021 Orders Only Department of Oncology Deborah Murray Malig nant Neoplasm Of in [facility] elke VillaB.SRiaz Pancreas (HCC) (Primary [address] [facility] [address] [facility] [place]) [place] [address] [phone] Social History Tobacco Use Types Packs/Day Years [...] How often do you attend episcopal or nondenominational services? 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 [address] [place] [address] [phone] (Wo rk) 06/22/2022 Infusion Oncology Maria Del Rosario Gomez APRN, C.N .P., M.S. [address] [place] [address] [phone] (Wo rk) 06/29/2022 Lab Laboratory Medicine Maria Del Rosario Gomez AP RN, C.N.P., M.S. [address] [place] [phone] (Wo rk) 06/29/2022 Infusion Oncology Maria Del Rosario Gomez APRN, C.N .P., M.S. [address] [place] [phone] (Wo rk) Scheduled Referrals Name Type Priority Associated Diagnoses Order S chedule Oncology - Chemo Outpatient Referral Routine Malignant Neoplas m Expected: education visit Of Pancreas (HCC) 021, (clinic) Expires: 01/24/2022 documented as of this encounter Results Bilirubin, Direct (01/25/2021 8:08 AM CDT) P athologist Signature Bilirubin, <0.2 0.0 - 0.3 01/25/2021 DTL Direct, S mg/dL 9:42 AM CDT Specimen Anatomical Collection Method Collection Time Receive d Time (Source) Location / / Volume Laterality Blood (Blood, 01/25/2021 8:08 AM 01/26/20 8:31 Venous) CDT AM CDT Deborah Valera LAB BLOOD ADD-ON Performing Organization Address City/State/ZIP Code Phon e Number [facility] - 200 [place], [place] [address] [facility] [place] [address] [facility] 200 [facility] Comprehensive Metabolic Panel (01/25/2021 8:08 AM CDT) P athologist Signature Potassium, S [...] 01/25/2021 DTL Black/ mL/min/BSA 9:42 AM CDT Northern Irish Comment: ----ADDITIONAL INFORMATION---- Estimated GFR calculated using [...] Number [facility] - [address] [place] [phone] [facility] [place] [address] [facility] 200 [facility] (ABNORMAL) CBC with Differential, Blood (01/25/2021 8:08 AM CDT) [facility] gist Method Time Signature Hemoglobin [...] Laterality Blood (Blood, 01/25/2021 8:08 AM 01/26/20 21 8:27 Venous) CDT AM CDT Deborah VillaB.S. LAB BLOOD ADD-ON Performing Organization Address City/State/ZIP Code Phon e Number [facility] [address] [place], [place] [address] [facility] [place] [address] [facility] [address] documented in this encounter Visit Diagnoses Diagnosis Malignant Neoplasm Of Pancreas (HCC) - P rimary documented in this encounter Additional Health Concerns Infection Onset Date Last Indicated Resolved Time COVID19 Pending 01/15/2021 01/15/2021 01/15/2021 6:06 PM CDT documented as of this encounter Care Teams Mounter Flutes And Piccolos Relationship Specialty Start Date End Date Elsewhere, Pcp PCP - General Family Medicine 08/12/20 documented as of this encounter
--- OUTSIDE RECORDS SUMMARY | 2022-06-18 16:15 | XMS_ITS | Encounter Summary ---
:1965 Author Organization [facility] Address [address] [place] [address] Care Team Providers Name Role Phone Elsewhere, Pcp Primary Care Provider Unavailable Encounter Details Date Type Department Care Team Description 01/15/2021 Hospital Encounter Department of Lesia Silva Loose Bo dy Left Wrist Radiology, Giorgi Roca, Ph.D. [facility] [place] [address] [place] [address] [place] [phone] [place], [place] [phone] (Work) [phone] Social History Tobacco Use Types Packs/Day Years [...] How often do you attend baptism or holiness services? 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 documented as of this encounter Plan of Treatment Upcoming Encounters Date Type Specialty Care Team Description 06/22/2022 Lab Laboratory Medicine Maria Del Rosario Gomez AP RN, C.N.P., M.S. [address] [place] [phone] (Mj godoy) 06/22/2022 [facility] .[facility] M[facility]S. [address] [place] [phone] (Mj godoy) 06/29/2022 Lab Laboratory Medicine [place] pier[place] AP RN, C.N.P., M.S. [address] [place] [phone] (Mj godoy) 06/29/2022 Infusion Oncology [place] APRN, C.N .P., M.S. [address] [place] [phone] (Mj godoy) documented as of this encounter Procedures Procedure Name Priority Date/Time Associated Comments Diagnosis DX HAND LEFT 2 RAD - Routine 01/15/2021 12:46 Loose Body Left Resul ts for this VIEWS AND WRIST (most inpatients PM CDT Wrist procedur e are in LEFT 2 VIEWS and all the results outpatients) section. documented in this encounter Results DX Hand Left 2 Views and Wrist Left 2 Views (01/15/2021 12:46 PM CDT) Anatomical Region Laterality Modality Upper Extremity, Hand, Musculoskeletal RST LOS, Left Digital Radiography Musculoskeletal ARZ LOS, Muskuloskeletal FLA LOS Specimen (Source) Anatomical Collection Method Collection Time Re ceived Time Location / / Volume Laterality 01/15/2021 12:50 PM CDT Impressions 01/15/2021 12:51 PM CDT Scattered mild soft tissue swelling including slight nodular soft tissue swelling about the distal forearm along the radial aspect. No soft tissue mineralization. Scattered mild degenerat lucille arthritis. Narrative 01/15/2021 12:51 PM CDT EXAM: ??DX HAND LEFT 2 VIEWS AND WRIST LEFT 2 VIEWS Procedure Note Tristen Lieberman M.D. - 01/15/2021Form atting of this note might be different from the original. EXAM: DX HAND LEFT 2 VIEWS AND WRIST LEF T 2 VIEWS IMPRESSION: Scattered mild soft tissue swelling incl uding slight nodular soft tissue swelling about the distal forearm along the radial aspect. No soft tissue mineralization. Scattered mild degenerat lucille arthritis. Lesia Silva M.D., Ph.D. [facility] [place] documented in this encounter Visit Diagnoses Diagnosis Loose Body Left Wrist documented in this encounter Additional Health Concerns Infection Onset Date Last Indicated Resolved Time COVID19 Pending 01/15/2021 01/15/2021 01/15/2021 6:06 PM CDT documented as of this encounter Care Teams Torpedo Shooter Relationship Specialty Start Date End Date Elsewhere, Pcp PCP - General Family Medicine 08/12/20 documented as of this encounter
--- OUTSIDE RECORDS SUMMARY | 2022-06-18 16:15 | XMS_ITS | Encounter Summary ---
:1965 Author Organization [facility] Address [address] [place] [address] Care Team Providers Name Role Phone Elsewhere, Pcp Primary Care Provider Unavailable Reason for Visit Reason Comments Medication Question Encounter Details Date Type Department Care Team Description 01/26/2021 Clinical Communication Department of Lee Sparrow [facility] in [place] River[place], [facility] [address] [place], [place] [address] [place] [phone] [place], [place] [phone] (Work) [phone] Social History Tobacco Use Types Packs/Day Years [...] How often do you attend mosque or baptist services? 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 - 01/27/2021 9:05 AM CDT Tanmay Renteria, Thank you for the update. 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 Would optimize his pain meds and get him through the radiation. But definitely would get imaging/endoscopic evaluation if there's LFT changes. Thanks, Deborah Telephone Encounter - Marisa Christine R.N. - 01/26/2021 2:16 PM CDT ASSESSMENT Mr. Adam Campbell, a 55 y/o mail with history of pancreatic adenocarcinoma, calls to update palliative care regarding low back pain that started yesterday. Mr. Campbell was directed by our team yesterday to report to his local ED for evaluation of acute and severe back pain unrelieved by hydromorphone 6 mg every 3 hours as needed. Mr. Campbell shares that he did report to the local ED in [place] yesterday late afternoon into the evening. Mr. Campbell states that no labs were drawn and no images were obtained during this visit. Mr. Campbell's understanding is that the back pain is directly related to his cancer. He was instead given acocktail of IV pain medications to help get the pain under control. He was then sent home. He had reported to this ED one other time recently for a similar episode of back pain. At that time, he was given a prescription for Toradol 10 mg every 6 hours as needed. Mr. Campbell shares that the ED staff encouraged him to use Toradol this morning if he was still having back pain. Mr. Campbell reports sleeping all night after receiving the IV medicines in the ED. This morning, he felt the back pain starting again. He tried using hydromorphone 6 mg first, but this did not stop thepain from progressing. He then used a tablet of Toradol 10 mg this morning at about 9 am. He shares he has not needed any pain medication since that time. He is planning to take another dose of hydromorphone 6 mg soon as this continues to be helpful for flares in his abdominal pain. The abdominal pain is independent from the pain episode he experienced in his back. Mr. Campbell denies any new weakness, numbness, or tingling to upper and lower extremities. Mr. Campbell denies any change in his bowel and bladder habits. He denies both constipation and diarrhea stating heis using Senna S and MiraLAX regularly. He denies any nausea or vomiting. He does have occasional nausea controlled with use of as needed Zofran. Adrian Buckner continues to use Creon with meals which he reports is going well. He feels his food is digesting properly at this time. PLAN Dicussed with Myra Obregon PRACTICE MANAGEMENT CONSULTANT. 1. Okay to continue Toradol 10 mg q 6 as needed. Use this sparingly as second line. 2. Continue hydromorphone 6 mg every 3 hours as needed as first line pain medication for back and abdominal pain. 3. For back pain, rest when needed, alternate ice and heat. 4. Low threshold to go back to ED if back pain is unrelieved by Toradol or is accompanied by any newor worsening symptoms. 5. Will discuss with oncology team if further imaging is needed or other next steps. Disposition/Recommendation: self-care is appropriate at this time, patient encouraged to call back with questions. Information/Education: patient/caller able to teach back. Caller agreeable to plan of care: yes. The following references were used: nursing clinical judgement and provider advice per Myra Obregon NP. documented in this encounter Plan of Treatment Upcoming Encounters Date Type Specialty Care Team Description 06/22/2022 Lab Laboratory Medicine Maria Del Rosario Gomez AP RN, C.N.P., M.S. [address] [place] [phone] (Mj godoy) 06/22/2022 Infusion Oncology Maria Del Rosario Gomez APRN, C.N .P., M.S. [address] [place] [address] [phone] (Mj godoy) 06/29/2022 Lab Laboratory Medicine Maria Del Rosario Gomez AP RN, C.N.P., M.S. [address] [place] [address] [phone] (Mj godyo) 06/29/2022 Infusion Oncology Maria Del Rosario Gomez APRN, C.N .P., M.S. [address] [place] [phone] (Mj godoy) documented as of this encounter Visit Diagnoses Not on filedocumented in this encounter Care Teams Back Shoe 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
--- OUTSIDE RECORDS SUMMARY | 2022-06-18 16:15 | XMS_ITS | Encounter Summary ---
:1965 Author Organization [facility] Address [address] [place] [address] Care Team Providers Name Role Phone Elsewhere, Pcp Primary Care Provider Unavailable Reason for Referral Outpatient (Routine) - Closed Specialty Diagnoses / Procedures Referred By Contact Refer red To Contact Diagnoses Loose Body Left Wrist Lesia Silva M.D., Ph.D. [facility] Procedures US Musculoskeletal Wrist Left [address] [place] [phone] Referral ID Status Reason Start Date Expiration Date Visits Requ ested Visits Authorized [id number] Closed 01/21/2021 01/21/2022 1 1 Encounter Details Date Type Department Care Team Description 01/21/2021 Orders Only Department of Radiation Lesia Silva Loos e Body Left Wrist Oncology in [place], Ph. D. (Primary Dx) [address] [place] [phone] Social History Tobacco Use Types Packs/Day Years [...] How often do you attend alevism or oriental orthodox services? 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 [address] [place] [address] [phone] (Mj godoy) 06/22/2022 Infusion Oncology Maria Del Rosario Gomez APRN, C.N .P., M.S. [address] [place] [address] [phone] (Mj godoy) 06/29/2022 Lab Laboratory Medicine Maria Del Rosario Gomez AP RN, C.N.P., M.S. [address] [place] [address] [phone] (Mj godoy) 06/29/2022 Infusion Oncology Maria Del Rosario Gomez APRN, C.N .P., M.S. [address] [place] [phone] (Mj godoy) documented as of this encounter Results US Musculoskeletal Wrist Left [...] Visit Diagnoses Diagnosis Loose Body Left Wrist - Primary Loose Body Left Wrist documented in this encounter Care Teams Fbi Profiler Relationship Specialty Start Date End Date Elsewhere, Pcp PCP - General Family Medicine 08/12/20 documented as of this encounter
--- OUTSIDE RECORDS SUMMARY | 2022-06-18 16:15 | XMS_ITS | Encounter Summary ---
:1965 Author Organization [facility] Address [address] [place] [address] Care Team Providers Name Role Phone Elsewhere, Pcp Primary Care Provider Unavailable Reason for Visit Episode Based Medications (Routine) - Closed Specialty Diagnoses / Procedures Referred By Contact Refer red To Contact Diagnoses Malignant Neoplasm Of Pancreas (HCC) Deborah Murray M.B.B.S. Rst Onc Rogo Procedures AL GEMCITABINE HCL [address] [facility] [address] [place] [phone] [place] [address] Referral ID Status Reason Start Date Expiration Date Visits Requ ested Visits Authorized [id number] Closed 01/15/2021 01/15/2022 12 12 Encounter Details Date Type Department Care Team Description 01/25/2021 Infusion Department of Oncology Deborah Murray Malig nant Neoplasm Of Pancreas (HCC) (Primary Dx); in [facility] elke VillaBRiazS. Bacteremia [address] [facility] [address] [place] [phone] [place], [place] [phone] Social History Tobacco Use Types Packs/Day Years [...] How often do you attend anabaptism or jainism services? 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 documented as of this encounter Last Filed Vital Signs Vital Sign Reading Time Taken Comments Blood Pressure 124/73 01/25/2021 10:14 AM CDT Pulse 76 01/25/2021 10:14 AM CDT Temperature 36.7 ??C (98.1 ??F) 01/25/2021 10:14 AM CDT Respiratory Rate - - Oxygen Saturation - - Inhaled Oxygen Concentration - - Weight 70.1 kg (154 lb 8.7 oz) 01/25/2021 10:14 AM with shoes CDT Height - - Body Mass Index 23.23 01/01/2021 11:44 AM CDT documented in this encounter Plan of Treatment Upcoming Encounters Date Type Specialty Care Team Description 06/22/2022 Lab Laboratory Medicine Maria Del Rosario Gomez AP RN, C.N.P., M.S. [address] [place] [phone] (Mj godoy) 06/22/2022 Infusion Oncology Maria Del Rosario Gomez APRN, C.N .P., M.S. [address] [place] [address] [phone] (Mj godoy) 06/29/2022 Lab Laboratory Medicine Maria Del Rosario Gomez AP RN, C.N.P., M.S. [address] [place] [address] [phone] (Mj godoy) 06/29/2022 Infusion Oncology Patricia Maria Del Rosariorojas Sanchez APRN, C.N .P., M.S. [address] [place] [phone] (Wo rk) documented as of this encounter Visit Diagnoses Diagnosis Malignant Neoplasm Of Pancreas (HCC) - P rimary Bacteremia documented in this encounter Administered Medications Inactive Administered Medications - up to 3 most recent administrations Medication Order MAR Action Action Date Dose Rate Site gemcitabine 600 mg in NaCl New Bag 01/25/2021 11:15 AM CDT 600 mg 532 mL/hr 0.9% 265.78 mL IVPB (GEMZAR) 600 mg (rounded from 552 mg = 300 mg/m2 ? 1.84 m2 Treatment Plan BSA from Measured weight), intravenous, at 532 mL/hr, Administer over 30 Minutes, Once, On Mon01/25/21 at 1030, For 1 dose heparin flush 500 Units Given 01/25/2021 11:49 AM CDT 500 Units 500 Units, intra-catheter, As needed, line care, Starting on Mon01/25/21 at 1028, When no infusion to maintain patency: For IVAD accessed, not in use, and/or prior to hospital discharge, flush every 7 days after 0.9% preservative-free NaCL flush. For IVAD NOT accessed or used, flush every 4 weeks after 0.9% preservative-free NaCL flush. ondansetron (PF) injection 8 mg (ZOFRAN) Given 01/25/2021 10:41 AM CDT 8 mg 8 mg, intravenous, Once, On Mon01/25/21 at 1030, For 1 dose sodium chloride 0.9 % injection 10 mL Given 01/25/2021 11:50 AM CDT 10 mL 10 mL, intra-catheter, As needed, line care, Starting on Mon01/25/21 at 1028, When IVAD Accessed and in Use: Flush prior to and following infusion, between multiple consecutive infusions, and prior to blood sampling. documented in this encounter Care Teams Lamp Stack Developer Relationship Specialty Start Date End Date Elsewhere, Pcp PCP - General Family Medicine 08/12/20 documented as of this encounter
--- OUTSIDE RECORDS SUMMARY | 2022-06-18 16:15 | XMS_ITS | Encounter Summary ---
:1965 Author Organization [facility] Address [address] [place] [address] Care Team Providers Name Role Phone Elsewhere, Pcp Primary Care Provider Unavailable Reason for Visit Episode Based Medications (Routine) - Closed Specialty Diagnoses / Procedures Referred By Contact Refer red To Contact Diagnoses Malignant Neoplasm Of Pancreas (HCC) Deborah Murray M.B.B.S. Rst Onc Rogo Procedures DE GEMCITABINE HCL [address] [place] [address] [place] [phone] [place] [address] Referral ID Status Reason Start Date Expiration Date Visits Requ ested Visits Authorized [id number] Closed 01/15/2021 01/15/2022 12 12 Encounter Details Date Type Department Care Team Description 01/22/2021 Clinical Communication Department of Deborah Murray M.B.B.S. [address] [place] [phone] Oncology in Vy Parry R.N. [address] [place] [phone] [place], [place] [address] [place] [phone] Social History Tobacco Use Types Packs/Day Years [...] How often do you attend christianity or orthodox services? 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 - 01/22/2021 3:37 PM CDT I called Mr. Campbell and his , Shaniqua, to discuss gemcitabine chemotherapy education with concurrentradiation therapy, over the phone. He had previously received one cycle of gemcitabine + Abraxane. He understands he will be receiving weekly gemcitabine over the course of 5 weeks. We discussed most co mmon side effects. He understands to call with any difficulties with symptoms, or fever of 100.4 or greater. He will return in one week for nurse toxicity check. All questions answered. documented in this encounter Plan of Treatment Upcoming Encounters Date Type Specialty Care Team Description 06/22/2022 Lab Laboratory Medicine Maria Del Rosario Gomez AP RN, C.N.P., M.S. [address] [place] [address] [phone] (Mj godoy) 06/22/2022 Infusion Oncology Maria Del Rosario Gomez APRN, C.N .P., M.S. [address] [place] [address] [phone] (Mj godoy) 06/29/2022 Lab Laboratory Medicine Maria Del Rosario Gomez AP RN, C.N.P., M.S. [address] [place], [place] [phone] (Mj godoy) 06/29/2022 Infusion Oncology Maria Del Rosario Gomez APRN, C.N .Pamela., M.S. [address] [place], [place] [phone] (Mj godoy) documented as of this encounter Visit Diagnoses Diagnosis Malignant Neoplasm Of Pancreas (HCC) documented in this encounter Care Teams Occup Ther Relationship Specialty Start Date End Date Elsewhere, Pcp PCP - General Family Medicine 08/12/20 documented as of this encounter
--- OUTSIDE RECORDS SUMMARY | 2022-06-18 16:15 | XMS_ITS | Encounter Summary ---
:1965 Author Organization [facility] Address [address] [place] [address] Care Team Providers Name Role Phone Elsewhere, Pcp Primary Care Provider Unavailable Reason for Visit Radiation Therapy (Routine) - Canceled Specialty Diagnoses / Procedures Referred By Contact Refer red To Contact Diagnoses Malignant Neoplasm Of Pancreas (HCC) Lesia Silva M.D., Ph.D. [facility] Procedures Prior Auth Rad Tx [place] IMRT COMPLEX [address] [place] [phone] Referral ID Status Reason Start Date Expiration Date Visits V isits Requested Authorized [id number] Canceled 01/20/2021 01/15/2022 25 25 Encounter Details Date Type Department Care Team Description 01/25/2021 Hospital Encounter Department of Radiation Cat Ramon I., Oncology in [place] [facility] [place] [address] [facility] [address] [place] [phone] Social History Tobacco Use Types Packs/Day Years [...] How often do you attend samaritan or pentecostalism services? 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 dortco-hezykohi-[id number] Take 1-2 capsules by 120 capsule 0 [...] Gomez AP RN, C.N.P., M.S. [address] [place] [address] [phone] (Mj godoy) 06/22/2022 Infusion Oncology Maria Del Rosario Gomez APRN, C.N .P., M.S. [address] [place] [address] [phone] (Mj godoy) 06/29/2022 Lab Laboratory Medicine Maria Del Rosario Gomez AP RN, C.N.P., M.S. [address] [place] [address] [phone] (Mj godoy) 06/29/2022 Infusion Oncology Maria Del Rosario Gomez APRN, C.N .P., M.S. [address] [place] [address] [phone] (Mj godoy) documented as of this encounter Visit Diagnoses Not on filedocumented in this encounter Care Teams Menagerie Superintendent Relationship Specialty Start Date End Date Elsewhere, Pcp PCP - General Family Medicine 08/12/20 documented as of this encounter
--- OUTSIDE RECORDS SUMMARY | 2022-06-18 16:15 | XMS_ITS | Encounter Summary ---
:1965 Author Organization [facility] Address [address] [place] [address] Care Team Providers Name Role Phone Elsewhere, Pcp Primary Care Provider Unavailable Encounter Details Date Type Department Care Team Description 01/25/2021 Clinical Communication Department of Earline, Oncology in Adam Pereira II, M.D. [place], [place] [address] [place] [address] Social History Tobacco Use Types Packs/Day Years [...] How often do you attend caodaism or episcopal services? 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 - 01/25/2021 6:09 PM CDT As Oncology fellow on-call, I spoke with Mr. Campbell's daughter. Mr. Campbell began concurrent pancreatic chemoradiation today with gemcitabine. He developed severe back pain this evening, and hydromorphone 6 mg has not improved the pain at all. 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 I advised evaluation at the nearest emergency department for improved pain control and investigationof the cause of the pain. documented in this encounter Plan of Treatment Upcoming Encounters Date Type Specialty Care Team Description 06/22/2022 Lab Laboratory Medicine Maria Del Rosario Gomez AP RN, C.N.P., M.S. [address] [place] [phone] (Mj godoy) 06/22/2022 Infusion Oncology Maria Del Rosario Gomez APRN, C.N .P., M.S. [address] [place] [phone] (Mj godoy) 06/29/2022 Lab Laboratory Medicine Maria Del Rosario Gomez AP RN, C.N.P., M.S. [address] [place] [address] [phone] (Mj godoy) 06/29/2022 Infusion Oncology Maria Del Rosario Gomez APRN, C.N .P., M.S. [address] [place] [address] [phone] (Mj godoy) documented as of this encounter Visit Diagnoses Not on filedocumented in this encounter Care Teams Spring Coverer Relationship Specialty Start Date End Date Elsewhere, Pcp PCP - General Family Medicine 08/12/20 documented as of this encounter
--- OUTSIDE RECORDS SUMMARY | 2022-06-18 16:15 | XMS_ITS | Encounter Summary ---
:1965 Author Organization [facility] Address [address] [place] [address] Care Team Providers Name Role Phone Elsewhere, Pcp Primary Care Provider Unavailable Reason for Visit Radiation Therapy (Routine) - Closed Specialty Diagnoses / Procedures Referred By Contact Refer red To Contact Diagnoses Malignant Neoplasm Of Pancreas (HCC) Lesia Silva M.D., Ph.D. [facility] Procedures Prior Auth Rad Tx [place] RADTN [place] DEL >=1 MEV COMPLEX [address] [place] [phone] Referral ID Status Reason Start Date Expiration Date Visits Requ ested Visits Authorized [id number] Closed 01/25/2021 01/25/2022 30 30 Encounter Details Date Type Department Care Team Description 01/27/2021 Hospital Encounter Department of Radiation Cat Ramon I., Oncology in [place] [facility] [place] [address] [facility] [address] [place] [phone] Social History Tobacco Use Types Packs/Day Years [...] How often do you attend anabaptism or lutheran services? 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 ctjbfu-tszkfkkl-kflohzj Take 1-2 capsules by 120 capsule 0 0 01/11/2021 03/03/2021 (CREON) mouth as needed for 24,000-76,000-120,000 snacks. Take [address] capsule capsule with snacks, take 2 capsule with meals LORazepam (Ativan) 0.5 Take 1 tablet (0.5 20 tablet 0 01/11/21/2021 mg tablet mg total) by mouth 2 [...] Gomez AP RN, C.N.P., M.S. [address] [place] [address] [phone] ( jayne) 06/22/2022 Infusion Oncology Maria Del Rosario Gomez APRN, C.N .P., M.S. [address] [place] [address] [phone] ( jayne) 06/29/2022 Lab Laboratory Medicine Maria Del Rosario Gomez AP RN, C.N.P., M.S. [address] [place] [address] [phone] ( jayne) 06/29/2022 Infusion Oncology Maria Del Rosario Gomez APRN, C.N .P., M.S. [address] [place] [address] [phone] (Mj godoy) documented as of this encounter Visit Diagnoses Not on filedocumented in this encounter Care Teams Fitness Sales Consultant Relationship Specialty Start Date End Date Elsewhere, Pcp PCP - General Family Medicine 08/12/20 documented as of this encounter
--- OUTSIDE RECORDS SUMMARY | 2022-06-18 16:15 | XMS_ITS | Encounter Summary ---
:1965 Author Organization [facility] Address [address] [place] [address] Care Team Providers Name Role Phone Elsewhere, Pcp Primary Care Provider Unavailable Reason for Visit Radiation Therapy (Routine) - Closed Specialty Diagnoses / Procedures Referred By Contact Refer red To Contact Diagnoses Malignant Neoplasm Of Pancreas (HCC) Lesia Silva M.D., Ph.D. [facility] Procedures Prior Auth Rad Tx [place] RADTN [place] DEL >=1 MEV COMPLEX [address] [place] [phone] Referral ID Status Reason Start Date Expiration Date Visits Requ ested Visits Authorized [id number] Closed 01/25/2021 01/25/2022 30 30 Encounter Details Date Type Department Care Team Description 01/26/2021 Hospital Encounter Department of Radiation [facility] Ramon I., [facility] [place] [address] [facility] [address] [place] [phone] Social History Tobacco Use Types Packs/Day Years [...] How often do you attend mandaen or scientologist services? 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 ubkysy-qicaerla-twqvxzy Take 1-2 capsules by 120 capsule 0 [...] Gomez AP RN, C.N.P., M.S. [address] [place] [phone] ( jayne) 06/22/2022 Infusion Oncology Maria Del Rosario Gomez APRN, C.N .P., M.S. [address] [place] [address] [phone] ( jayne) 06/29/2022 Lab Laboratory Medicine Maria Del Rosario Gomez AP RN, C.N.P., M.S. [address] [place] [phone] ( jayne) 06/29/2022 Infusion Oncology Maria Del Rosario Gomez APRN, C.N .P., M.S. [address] [place] [phone] (Mj godoy) documented as of this encounter Visit Diagnoses Not on filedocumented in this encounter Care Teams Physical Science Professor Relationship Specialty Start Date End Date Elsewhere, Pcp PCP - General Family Medicine 08/12/20 documented as of this encounter
--- OUTSIDE RECORDS SUMMARY | 2022-06-18 16:16 | XMS_ITS | Encounter Summary ---
:1965 Author Organization [facility] Address [address] [place] [address] Care Team Providers Name Role Phone Elsewhere, Pcp Primary Care Provider Unavailable Reason for Referral Outpatient (Routine) - Closed Specialty Diagnoses / Procedures Referred By Contact Refer red To Contact Oncology Deborah Murray M.B.B.S . [address] [phone] Referral ID Status Reason Start Date Expiration Date Visits Requ ested Visits Authorized [id number] Closed 12/31/2020 12/31/2021 1 1 Scheduling Instructions After RadOnc visit. utpatient (Routine) - Closed Specialty Diagnoses / Procedures Referred By Contact Refer red To Contact Radiation Oncology Diagnoses Malignant Neoplasm Of Pancreas (HCC) Deborah Murray M.B.B.S. [facility] [address] [place] [phone] Referral ID Status Reason Start Date Expiration Date Visits Requ ested Visits Authorized [id number] Closed 12/31/2020 12/31/2021 1 1 utpatient (Routine) - Closed Specialty Diagnoses / Procedures Referred By Contact Refer red To Contact Diagnoses Malignant Neoplasm Of Pancreas (HCC) Deborah Murray M.B.B.S. [facility] Procedures EUS [address] [place] [phone] Referral ID Status Reason Start Date Expiration Date Visits Requ ested Visits Authorized [id number] Closed 12/31/2020 12/31/2021 1 1 Reason for Visit Outpatient (Routine) - Closed Specialty Diagnoses / Procedures Referred By Contact Refer red To Contact Oncology Deborah Murray M.B.B.S . [facility] [address] [place] [phone] Referral ID Status Reason Start Date Expiration Date Visits Requ ested Visits Authorized [id number] Closed 12/14/2020 12/14/2021 1 1 Encounter Details Date Type Department Care Team Description 12/31/2020 Office Visit Department of Oncology Deborah Murray Malig nant Neoplasm Of Pancreas (HCC) (Primary Dx); [facility] [place] [address] [place] [address] 200 [place] [phone] Social History Tobacco Use Types Packs/Day Years [...] How often do you attend denominational or mormonism services? Never 01/15/2021 Do you [...] level of school you have completed or 11 th grade 09/08/2020 the highest degree you have received? 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 - 12/31/2020 4:20 PM CDT CHIEF COMPLAINT/PURPOSE OF VISIT: Localized pancreas cancer, unresectable due to comorbidities. History of pancreatitis with infected necrosis CURRENT TREATMENT/MANAGEMENT PLAN Referring for endoscopy celiac block and Radiation Oncology evaluation PRIMARY CARE PHYSICIAN ELSEWHERE, PCP REQUESTING PROVIDER Deborah Murray M.B.B.S. [address] [place] [phone] LOCAL ONCOLOGIST No care swat team member to display PRIMARY WOODBINE ONCOLOGIST Deborah Murray M.B.B.S. HISTORY OF PRESENT ILLNESS: Mr. Campbell is a 55 y.o. male with the following oncologic history: Oncology History Malignant Neoplasm Of Pancreas (HCC) 07/2020 Initial Diagnosis Malignant Neoplasm Of Pancreas (HCC) 07/19/2020 Biopsy/Pathology PANCREAS, MASS IN UNCINATE PROCESS, ENDOSCOPIC [...] were discontinued prior to discharge. 10/16/2020 - Chemotherapy Treatment on hold after 1 cycle when complicated by infection/pancreatitis. Gemcitabine / PACLitaxel Protein - Bound Start Date: 10/16/2020 12/31/2020 Other Re-evaluated by Dr. Travis and patient deemed not a surgical candidate. He recommended palliative management. INTERVAL HISTORY: Mr. Campbell returns today for follow-up. He had met with Dr. Travis prior to this consultation. Patientreported significant abdominal pain likely secondary to underlying cancer +/-pancreatitis. He had gone to local ED for the abdominal pain and was given Toradol. When seen today, he doubled over for pain and is irritable which is unusual for him. ROS: Pertinent items are noted in HPI; all other review of systems were negative. No data recorded VITAL SIGNS: There were no vitals filed for this visit. PHYSICAL EXAM Vitals reviewed. Constitutional Appearance: He is well-developed. He is not toxic-appearing. Comments: Thin, in pain Eyes General: No scleral icterus. Conjunctiva/sclera: Conjunctivae normal. Cardiovascular Rate and Rhythm: Normal rate. Pulmonary Effort: Pulmonary effort is normal. No respiratory distress. Skin Coloration: Skin is not jaundiced. Neurological Mental Status: He is alert and oriented to person, place, and time. DIAGNOSTICS: I reviewed the imaging studies and agree with the interpretation as recorded. I reviewed the pertinent laboratory and diagnostic data. ASSESSMENT/PLAN: #1 Malignant Neoplasm Of Pancreas (HCC) #2 Abdominal Pain Mr. Campbell is a 55 y.o. male with localized pancreas cancer and a history of pancreatitis and peripancreatic abscess. Patient had received 1 dose of gemcitabine plus Abraxane but complicated by pancreatitis and reinfection. Subsequently, he had required IV antibiotic management under the supervision of Infectious Disease. He was seen by Dr. Travis today for surgical consideration. Unfortunately, patient is deemed not a surgical candidate due to ongoing active comorbidities including peripancreatic abscess and pancreatitis. Dr. Travis recommended palliative intent management. Given the infectious complication from systemic chemotherapy, I would refer him to see radiation oncology to be considered for radiation or chemoradiation. The chemotherapy we administered with radiation is at lower radiosensitizing dose which he may tolerate. I would discuss with Radiation Oncology after the consult. In terms of pain control, I have made a referral for him to get endoscopic celiac block. However, patient is in severe pain in the clinic. His blood test results are grossly normal with no evidence of infection. I suspect his pain may be secondary to underlying pancreatitis or cancer progression. Given the severity of the pain, patient is agreeable to hospitalization for pain control. I have spoken to palliative care inpatient team for admission. We discussed about starting patient on WELDING OPERATOR pump and transitioning to an oral outpatient regimen. I will us that the celiac block to be done during hospitalization if possible. We will plan to see the patient in the clinic after Radiation Oncology consultation to review the recommendation. The above plan was discussed with the patient and , who expressed understanding and are in agreement. PATIENT EDUCATION Ready to learn, no apparent learning barriers were identified; learning preferences include listening. Explained diagnosis and treatment plan; patient expressed understanding of the content. ADMINISTRATIVE BILLING I personally spent a total 25 minutes on the evaluation, development of the management plan, discussion/education and coordination of care as described above. This include fxrt-ba-hbsw and non jvrp-gl-qnpj time. documented in this encounter Plan of Treatment Upcoming Encounters Date Type Specialty Care Team Description 06/22/2022 Lab Laboratory Medicine Maria Del Rosario Gomez AP RN, C.N.P., M.S. [address] [place] [phone] ( rk) 06/22/2022 [facility], Remy.N .P., M.S. [address] [place] [phone] ( rk) 06/29/2022 Lab Laboratory Medicine Maria Del Rosario Gomez AP RN, C.N.P., M.S. [address] [place] [phone] ( rk) 06/29/2022 Infusion Oncology MalinMaria Del Rosario pierre APRN C.N .P., M.S. [address] [place] [phone] ( rk) Scheduled Referrals Name Type Priority Associated Diagnoses Order S chedule Radiation Oncology Outpatient Referral Routine Malignant Neopl asm Expected: - GI consult Of Pancreas (HCC) 12/31/2020 (clinic) (Approximate), Expires: 01/01/2024 Oncology office Outpatient Referral Routine Expec sally: visit (clinic) 01/11/2021, Expires: 01/01/2024 documented as of this encounter Results Carbohydrate Antigen 19-9 (CA 19-9) (01/15/2021 7:30 AM CDT) athologist [facility] Carbohydrate Ag 7 <35 U/mL 01/15/2021 [facility] 19-9, S 10:49 AM CDT Comment: ----ADDITIONAL INFORMATION---- The testing method is an immunoenzymatic assay manufactured by [employer]. and performed on the [employer]zilla DxI 800. ? Values obtained with different assay met hods or kits may be different and cannot be used inte rchangeably. ? Test results cannot be interpreted as ab solute evidence for the presence or absence of malignant disease. Specimen Anatomical Collection Method Collection Time Receive d Time (Source) Location / / Volume Laterality Blood (Blood, 01/15/2021 7:30 AM 01/16/20 9:54 Venous) CDT AM CDT Deborah VillaB.S. LAB BLOOD ADD-ON Performing Organization Address City/[facility]/ZIP Code Phon e Number [facility] [address] [address] [place], [place] [address] [facility] [place] [place] [address] Laboratory Medicine and Pathology [address] [place] Glucose, Fasting (01/15/2021 7:30 AM CDT) athologist [facility] Glucose, P 86 70 - 100 01/15/2021 DTL mg/dL 8:17 AM CDT Last Intake 10 hr 01/15/2021 DTL 7:43 AM CDT Specimen Anatomical Collection Method Collection Time Receive d Time (Source) Location / / Volume Laterality Blood (Blood, 01/15/2021 7:30 AM 01/16/20 7:43 Venous) CDT AM CDT Deborah Neal.B.S. LAB BLOOD NON ADD-ON Performing Organization Address City/[facility] Phon e Number [facility] - [address] [place], [place] [address] [facility] [place] [address] Laboratories-[facility] 200 [facility] Comprehensive Metabolic Panel (01/15/2021 7:30 AM CDT) athologist [facility] Potassium, S 3.9 3.6 - 5.2 01/15/2021 DTL mmol/L 8:21 AM CDT Sodium, S 141 135 - 145 01/15/2021 DTL mmol/L 8:21 AM CDT Chloride, S 106 98 - 107 01/15/2021 DTL mmol/L 8:21 AM CDT Bicarbonate, S 28 22 - 29 01/15/2021 DTL mmol/L 8:21 AM CDT Anion Gap 7 7 - 15 01/15/2021 DTL 8:21 AM CDT BUN (Blood Urea 15 8 - 24 01/15/2021 DTL Nitrogen), S mg/dL 8:21 AM CDT Creatinine 0.77 0.74 - 01/15/2021 DTL 1.35 mg/dL 8:21 AM CDT eGFR-Non >90 >=60 01/15/2021 DTL Black/ mL/min/BSA 8:21 AM CDT Filipino Comment: ----ADDITIONAL INFORMATION---- Estimated GFR calculated using the 2009 CKD_EPI creatinine equation. eGFR-Black/ >90 >=60 mL/min/BSA 2020 8:21 AM CDT DTL Comment: ----ADDITIONAL INFORMATION---- Estimated GFR calculated using the 2009 CKD_EPI creatinine equation. Calcium, Total, S 9.0 8.6 - 10.0 mg/dL 01/15/2021 8:21 AM CDT DTL Glucose, S CANCELED mg/dL 01/15/2021 7:43 AM CDT DTL Comment: Test not performed. See Fasting Glucose result. Result canceled by the ancillary. Protein, Total, S 7.0 6.3 - 7.9 g/dL 01/15/2021 8:21 A M CDT DTL Albumin, S 3.6 3.5 - 5.0 g/dL 01/15/2021 8:21 AM CDT D TL Aspartate Aminotransferase (AST), S 12 8 - 48 U/L 03/2021 8:21 AM CDT DTL Alkaline Phosphatase, S 92 40 - 129 U/L 01/15/2021 8: 21 AM CDT DTL Alanine Aminotransferase (ALT), S 8 7 - 55 U/L 01/15 8:21 AM CDT DTL Bilirubin, Total, S 0.3 <=1.2 mg/dL 01/15/2021 8:21 AM CDT DTL Specimen Anatomical Collection Method Collection Time Receive d Time (Source) Location / / Volume Laterality Blood (Blood, 01/15/2021 7:30 AM 01/16/20 7:43 Venous) CDT AM CDT Deborah Valera LAB BLOOD ADD-ON Performing Organization Address City/State/ZIP Code Phon e Number [facility] - [address] [place] [phone] [facility] [place] [address] [facility] 200 [facility] (ABNORMAL) CBC with Differential, Blood (01/15/2021 7:30 AM CDT) [facility] gist Method Time Signature Hemoglobin 10.9 (L) 13.2 - 01/15/2021 DTL 16.6 g/dL 7:57 AM CDT Hematocrit 36.0 (L) 38.3 - 01/15/2021 DTL 48.6 % 7:57 AM CDT Erythrocytes 4.38 4.35 - 01/15/2021 DTL 5.65 7:57 AM CDT x10(12)/L MCV 82.2 78.2 - 01/15/2021 DTL 97.9 fL 7:57 AM CDT RBC Distrib Width 16.6 (H) 11.8 - 01/15/2021 DTL 14.5 % 7:57 AM CDT Platelet Count 220 135 - 317 01/15/2021 DTL x10(9)/L 7:57 AM CDT Leukocytes 7.8 3.4 - 9.6 01/15/2021 DTL x10(9)/L 7:57 AM CDT Neutrophils 5.49 1.56 - 01/15/2021 DTL 6.45 7:57 AM CDT x10(9)/L Lymphocytes 1.67 0.95 - 01/15/2021 DTL 3.07 7:57 AM CDT x10(9)/L Monocytes 0.52 0.26 - 01/15/2021 DTL 0.81 7:57 AM CDT x10(9)/L Eosinophils 0.12 0.03 - 01/15/2021 DTL 0.48 7:57 AM CDT x10(9)/L Basophils 0.04 0.01 - 01/15/2021 DTL 0.08 7:57 AM CDT x10(9)/L Specimen Anatomical Collection Method Collection Time Receive d Time (Source) Location / / Volume Laterality Blood (Blood, 01/15/2021 7:30 AM 01/16/20 21 7:43 Venous) CDT AM CDT Deborah RussoSRiaz LAB BLOOD ADD-ON Performing Organization Address City/State/ZIP Code Phon e Number [facility] - [address] [place], [place] [address] [facility] [place] [address] [facility] [address] documented in this encounter Visit Diagnoses Diagnosis Malignant Neoplasm Of Pancreas (HCC) - P rimary Abdominal Pain documented in this encounter Care Teams Field Human Resources Manager Relationship Specialty Start Date End Date Elsewhere, Pcp PCP - General Family Medicine 08/12/20 documented as of this encounter
--- OUTSIDE RECORDS SUMMARY | 2022-06-18 16:16 | XMS_ITS | Encounter Summary ---
:1965 Author Organization [facility] Address [address] [place] [address] Care Team Providers Name Role Phone Elsewhere, Pcp Primary Care Provider Unavailable Reason for Referral Radiation Therapy (Routine) - Closed Specialty Diagnoses / Procedures Referred By Contact Refer red To Contact Diagnoses Malignant Neoplasm Of Pancreas (HCC) Lesia Silva M.D., Ph.D. [facility] Procedures Initial Rad Onc Treatment Planning CT Simulation [address] [place] [phone] Referral ID Status Reason Start Date Expiration Date Visits Requ ested Visits Authorized [id number] Closed 01/15/2021 01/15/2022 1 1 Reason for Visit Radiation Therapy (Routine) - Closed Specialty Diagnoses / Procedures Referred By Contact Refer red To Contact Diagnoses Malignant Neoplasm Of Pancreas (HCC) Lesia Silva M.D., Ph.D. [facility] Procedures Initial Rad Onc Treatment Planning CT Simulation [address] [place] [phone] Referral ID Status Reason Start Date Expiration Date Visits Requ ested Visits Authorized [id number] Closed 01/15/2021 01/15/2022 1 1 Encounter Details Date Type Department Care Team Description 01/15/2021 Hospital Encounter Department of Lesia Silva Malignan t Neoplasm Of Radiation Oncology Chanelle, Ph.D. Pancreas (HCC) in [place], [address] [place], [place] 200 [facility] [address] [place], [place] [phone] (Work) [phone] Social History Tobacco Use Types Packs/Day Years [...] How often do you attend judaism or voodoo services? 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 documented as of this encounter Procedure Notes Vicki Parekh, RTT - 01/15/2021 11:30 AM CDTAssociated Order(s): Initial Rad Onc Treatment Planning CT Simulation Pre-Procedure Diagnose(s): Malignant Neoplasm Of Pancreas (HCC) Post-Procedure Diagnose(s): Malignant Neoplasm Of Pancreas (HCC) Initial Rad Onc Treatment Planning CT Simulation Date/Time: 01/15/2021 12:08 PM Performed by: Lesia Silva M.D., Ph.D. Authorized by: Lesia Silva M.D., Ph.D. Simulation was performed under physician supervision based on physician order in preparation for radiation therapy. Physician was immediately available to provide assistance and direction throughout the procedure. Written consent for treatment was completed or confirmed. The patient was appropriately identified and placed in the treatment position using the necessary immobilization to ensure a reproducible treatment position. Reference victoria were placed to facilitate marking of isocenter. Area scanned:Chest and Abdomen Contrast used for the simulation procedure: IV Patient position:head first supine and arms up Custom immobilization: Vac-william Motion management: 4D CT scan Bolus: No CT guidance: Following positioning of the patient, a series of slices was obtained to be utilized intreatment planning. CT images were transferred to the [employer] treatment planning system, after a reference isocenter was determined and marked. Segmentation and treatment planning will take place priorto treatment delivery. Patient set up and imaging was appropriate and completed without incident. Loan Assistant use:No ADDENDUM: Mr. Campbell was successfully CT simulated. We will plan on starting chemoradiation on 01/25/2021. He will need an IMRT plan given his extensive disease that abuts a lot of stomach and bowel for maximal sparing of these structures compared to 3DCRT to limit acute and late toxicity. Lesia Silva MD, PhD Medical Detail Representative [place] Department of Radiation Oncology [facility] documented in this encounter Plan of Treatment Upcoming Encounters Date Type Specialty Care Team Description 06/22/2022 Lab Laboratory Medicine Maria Del Rosario Gomez AP RN, C.N.P., M.S. [address] [place] [phone] (Mj godoy) 06/22/2022 Infusion Oncology Maria Del Rosario Gomez APRN, C.N .P., M.S. [address] [place] [phone] (Mj godoy) 06/29/2022 Lab Laboratory Medicine Maria Del Rosario Gomez AP RN, C.N.P., M.S. [address] [place] [phone] (Mj godoy) 06/29/2022 Infusion Oncology Maria Del Rosario Gomez APRN, C.N .P., M.S. [address] [place], [place] [phone] (Wo rk) documented as of this encounter Procedures Procedure Name Priority Date/Time Associated Comments Diagnosis INITIAL RAD ONC Routine 01/15/2021 12:08 PM Malignant Neoplasm Results for this TREATMENT PLANNING CDT Of Pancreas (HCC) proc edure are in CT SIMULATION the results section. documented in this encounter Results Initial Rad Onc Treatment Planning CT Simulation (01/15/2021 12:08 PM CDT) Specimen (Source) Anatomical Location Collection Method / Collectio n Time Received Time / Laterality Volume Narrative TABLE GROVE ISAIAS - 01/15/2021 12:08 PM CDT Lesia Silva M.D., Ph.D. ? 01/15/2021 ??2:15 PM Initial Rad Onc Treatment Planning CT Si mulation Date/Time: 01/15/2021 12:08 PM Performed by: Lesia Silva M.D., Ph.D. Authorized by: Lesia Silva M.D., Ph.D. Lesia Silva M.D., Ph.D. RADIATION ONCOLOGY ORDERABLE S Performing Organization Address City/State/ZIP Code Phon e Number [facility] na documented in this encounter Visit Diagnoses Diagnosis Malignant Neoplasm Of Pancreas (HCC) documented in this encounter Care Teams Educational Aid Relationship Specialty Start Date End Date Elsewhere, Pcp PCP - General Family Medicine 08/12/20 documented as of this encounter
--- OUTSIDE RECORDS SUMMARY | 2022-06-18 16:16 | XMS_ITS | Encounter Summary ---
:1965 Author Organization [facility] Address [address] [place] [address] Care Team Providers Name Role Phone Elsewhere, Pcp Primary Care Provider Unavailable Reason for Visit Reason Comments Back Pain Encounter Details Date Type Department Care Team Description 01/02/2021 Clinical Communication Department of Tina Herron Back Pain Palliative Care in A, Trevon, M .S. [place], [place] [address] [facility] [address] [place] [phone] Social History Tobacco Use Types Packs/Day Years [...] How often do you attend denominational or episcopalian services? 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 - 01/03/2021 2:10 PM CDT I called Mr. Campbell to follow-up from overnight. He reports the increase to 6mg has significantly improved his pain; believes his pain was exacerbated with increased activity at home and leaning over his workstation for his hobbies. He last took the hydromorphone about 10 minutes ago, and before that around 5 hours previously. I sent an additional 35 tablets to the pharmacy based on the increased dose. He understands to notify us with any new or worsening symptoms including leg numbness/weakness, worsening pain, etc. Telephone Encounter - Nikki Herron P.A.-C., M.S. - 01/02/2021 7:48 PM CDT Mr. Adam Campbell was discharged from the [facility] service on 01/02 with pain under good control. During hospitalization, he was rotated from oxycodone to hydromorphone with good pain relief. His pain was well controlled and he was discharged today in order to attend a family function. Unfortunately this af ternoon, pain worsened, despite taking 4 mg oral hydromorphone every 3 hours in addition to acetaminophen. Mr. Campbell contacted [facility] for pain management recommendations. As pain is not well controlled at the 4 mg dose, patient was instructed to increase to 6 mg (1.5 tabs) and take that every 3 hours asneeded in addition to his scheduled acetaminophen. If this is not adequate for his pain, I asked himto be seen in his local ER as other options are limited overnight and on the weekends. [facility] day teamwill call and check in with him tomorrow to see if the increase was helpful. Will need to send additional hydromorphone prescription if he will continue with the 6 mg dose. Mr. Campbell is aware he can contact us back tonight if necessary. documented in this encounter Plan of Treatment Upcoming Encounters Date Type Specialty Care Team Description 06/22/2022 Lab Laboratory Medicine Maria Del Rosario Gomez AP RN, C.N.P., M.S. [address] [place] [phone] (Mj godoy) 06/22/2022 Infusion Oncology Maria Del Rosario Gomez APRN, C.N .P., M.S. [address] [place] [phone] (Mj godoy) 06/29/2022 Lab Laboratory Medicine Maria Del Rosario Gomez AP RN, C.N.P., M.S. [address] [place] [phone] (Mj godoy) 06/29/2022 Infusion Oncology Maria Del Rosario Gomez APRN, C.N .P., M.S. [address] [place] [phone] (Mj godoy) documented as of this encounter Visit Diagnoses Not on filedocumented in this encounter Care Teams Fitness Manager Relationship Specialty Start Date End Date Elsewhere, Pcp PCP - General Family Medicine 08/12/20 documented as of this encounter
--- OUTSIDE RECORDS SUMMARY | 2022-06-18 16:16 | XMS_ITS | Encounter Summary ---
:1965 Author Organization [facility] Address [address] [place] [address] Care Team Providers Name Role Phone Elsewhere, Pcp Primary Care Provider Unavailable Encounter Details Date Type Department Care Team Description 01/15/2021 Lab Department of Infusion Deborah Murray Malig nant Neoplasm Of Pancreas (HCC) (Primary Dx); Therapy in [facility] Abdominal Pain; [place] [address] [facility] Bacteremia [address] [place] [id number] [phone] (Wo rk) Social History Tobacco Use Types [...] How often do you attend pentecostal or mandaen services? 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 [address] [place] [address] [phone] (Mj rk) 06/22/2022 Infusion Oncology Maria Del Rosario Gomez APRN, C.N .P., M.S. [address] [place] [address] [phone] (Mj rk) 06/29/2022 Lab Laboratory Medicine Maria Del Rosario Gomez AP RN, C.N.P., M.S. [address] [place] [address] [phone] (Mj godoy) 06/29/2022 Infusion Oncology Maria Del Rosario Gomez APRN, C.N .P., M.S. [address] [place] [phone] (Mj rk) documented as of this encounter Procedures Procedure Name Priority Date/Time Associated Comments Diagnosis CARBOHYDRATE AG 19-9 Routine 01/15/2021 7:30 AM Malignant Neop lasm Results for this (CA 19-9), S CDT Of Pancreas (HCC ) procedure are in Abdominal Pain the results section. CBC WITH DIFFERENTIAL, Routine 01/15/2021 7:30 AM Malignant Ne oplasm Results for this B CDT Of Pancreas (HCC ) procedure are in Abdominal Pain the results section. GLUCOSE, FASTING, S/P Routine 01/15/2021 7:30 AM Malignant Siva plasm Results for this CDT Of Pancreas (HCC ) procedure are in Abdominal Pain the results section. COMPREHENSIVE Routine 01/15/2021 7:30 AM Malignant Neoplasm Re sults for this METABOLIC PANEL, S/P CDT Of Pancreas (HCC) procedure are in Abdominal Pain the results section. documented in this encounter Results Carbohydrate Antigen 19-9 (CA 19-9) (01/15/2021 7:30 AM CDT) athologist Signature Carbohydrate Ag 7 <35 U/mL 01/15/2021 [facility] 19-9, S 10:49 AM CDT Comment: ----ADDITIONAL INFORMATION---- The testing method is an immunoenzymatic assay manufactured by [employer] and performed on the [employer] DxI 800. ? Values obtained with different [...] VillaB.S. LAB BLOOD ADD-ON Performing Organization Address City/[facility]/ZIP Code Phon e Number [facility] [address] [place], [place] [address] [facility] [place] [address] Laboratory Medicine and Pathology [address] [place] Glucose, Fasting (01/15/2021 7:30 AM CDT) athologist [facility] Glucose, P 86 70 - 100 01/15/2021 DTL mg/dL 8:17 AM CDT Last Intake 10 hr 01/15/2021 DTL 7:43 AM CDT Specimen Anatomical Collection Method Collection Time Receive d Time (Source) Location / / Volume Laterality Blood (Blood, 01/15/2021 7:30 AM 01/16/20 7:43 Venous) CDT AM CDT Deborah VillaB.S. LAB BLOOD NON ADD-ON Performing Organization Address City/[facility]/ZIP [facility] Phon e Number [facility] - 200 [place], [place] [address] [facility] [place] [address] Laboratories-[facility] 200 [facility] Comprehensive Metabolic Panel (01/15/2021 7:30 AM CDT) athologist [facility] Potassium, S 3.9 3.6 - 5.2 01/15/2021 [...] 01/15/2021 DTL Black/ mL/min/BSA 8:21 AM CDT Cypriot Comment: ----ADDITIONAL INFORMATION---- Estimated GFR calculated using [...] City/State/ZIP Code Phon e Number [facility] - 200 [place], [place] [address] [facility] [place] [address] Laboratories-[facility] 200 [facility] (ABNORMAL) CBC with Differential, Blood (01/15/2021 7:30 AM CDT) [facility] Method Time Signature Hemoglobin 10.9 (L) 13.2 [...] 01/16/20 7:43 Venous) CDT AM CDT Deborah VillaBRiazSRiaz LAB BLOOD ADD-ON Performing Organization Address City/State/ZIP Code Phon e Number [facility] - [address] [place] [address] [facility] [place] [place] [address] Laboratories-[facility] [address] documented in this encounter Visit Diagnoses Diagnosis Malignant Neoplasm Of Pancreas (HCC) - P rimary Abdominal Pain Bacteremia documented in this encounter Administered Medications Inactive Administered Medications - up to 3 most recent administrations Medication Order MAR Action Action Date Dose Rate Site heparin flush 500 Units Given 01/15/2021 7:34 AM CDT 500 Units 500 Units, intra-catheter, As needed, line care, Starting on Mon01/15/21 at 0715, When no infusion to maintain patency: For IVAD accessed, not in use, and/or prior to hospital discharge, flush every 7 days after 0.9% preservative-free NaCL flush. For IVAD NOT accessed or used, flush every 4 weeks after 0.9% preservative-free NaCL flush. sodium chloride 0.9 % injection 10 mL Given 01/15/2021 7:34 AM CDT 10 mL 10 mL, intra-catheter, As needed, line care, Starting on Mon01/15/21 at 0715, When IVAD Accessed and in Use: Flush prior to and following infusion, between multiple consecutive infusions, and prior to blood sampling. sodium chloride 0.9 % injection 20 mL Given 01/15/2021 7:34 AM CDT 20 mL 20 mL, intra-catheter, As needed, line care, Starting on Mon01/15/21 at 0715, When IVAD Accessed and in Use: Flush post blood transfusion or post blood sampling. documented in this encounter Care Teams Napper Fixer Relationship Specialty Start Date End Date Elsewhere, Pcp PCP - General Family Medicine 08/12/20 documented as of this encounter
--- OUTSIDE RECORDS SUMMARY | 2022-06-18 16:16 | XMS_ITS | Encounter Summary ---
:1965 Author Organization [facility] Address [address] [place] [address] Care Team Providers Name Role Phone Elsewhere, Pcp Primary Care Provider Unavailable Encounter Details Date Type Department Care Team Description 01/12/2021 Ancillary Procedure Department of Gastroenterology Social History [...] How often do you attend restoration or mandaen services? 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 [address] [place] [phone] (Wo jayne) 06/22/2022 Infusion Oncology AmeliaMaria Del Rosario pierre APRN, Remy.N .P., M.S. [address] [place] [phone] (Wo rk) 06/29/2022 Lab Laboratory Medicine AmeliaMaria Del Rosario pierre AP RN, C.N.P., M.S. [address] [place] [phone] (Wo rk) 06/29/2022 Infusion Oncology Maria Del Rosario oGmez APRN, Remy.N .P., M.S. [address] [place] [phone] (Wo rk) documented as of this encounter Procedures Procedure Name Priority Date/Time Associated Comments Diagnosis GASTROENTEROLOGY IMAGE Routine 01/12/2021 10:15 R esults for this EXAM AM CDT procedure are i n the results section. documented in this encounter Results Upper EUS-Gastroenterology Image Exam (01/12/2021 10:15 AM CDT) Specimen (Source) Anatomical Collection Method Collection Time Re ceived Time Location / / Volume Laterality 01/12/2021 10:14 AM CDT Narrative [facility] - 01/12/2021 11:35 AM CDT This order has been created [...] on filedocumented in this encounter Care Teams Protective Signal Repairer Helper Relationship Specialty Start Date End Date Elsewhere, Pcp PCP - General Family Medicine 08/12/20 documented as of this encounter
--- OUTSIDE RECORDS SUMMARY | 2022-06-18 16:16 | XMS_ITS | Encounter Summary ---
:1965 Author Organization [facility] Address [address] [place] [address] Care Team Providers Name Role Phone Elsewhere, Pcp Primary Care Provider Unavailable Reason for Referral Outpatient (Routine) - Closed Specialty Diagnoses / Procedures Referred By Contact Refer red To Contact Diagnoses Malignant Neoplasm Of Pancreas (HCC) Deborah Murray M.B.B.S. [facility] Procedures EUS [address] [place] [address] Referral ID Status Reason Start Date Expiration Date Visits Requ ested Visits Authorized [id number] Closed 12/31/2020 12/31/2021 1 1 Reason for Visit Outpatient (Routine) - Closed Specialty Diagnoses / Procedures Referred By Contact Refer red To Contact Diagnoses Malignant Neoplasm Of Pancreas (HCC) Deborah Murray M.B.B.S. [facility] Procedures EUS [address] [place] [address] Referral ID Status Reason Start Date Expiration Date Visits Requ ested Visits Authorized [id number] Closed 12/31/2020 12/31/2021 1 1 Encounter Details Date Type Department Care Team Description 01/12/2021 Hospital Encounter Division of Deborah Murray, Malignant Neoplasm Gastroenterology in M.B.B.S. Of Pancreas (HCC) [place], [place] [address] [place] [address] [facility] [phone] [place] [address] Social History Tobacco Use Types Packs/Day Years [...] How often do you attend evangelical or druze services? 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 About Your Endoscopic Ultrasound (Tajik)documented in this encounter Medications at Time of [...] NEEDED (30 MINUTES PRIOR TO PORT ACCESS) [id number] Take 1-2 capsules by 120 capsule 0 [...] 1 tablet (8 mg 20 tablet 0 02/01/202102/24/2021 mg tablet total) by mouth every 8 (eight) hours as needed for nausea or vomiting. documented as of this encounter Nursing Notes Anya Sullivan RRiazN. - 01/12/2021 10:[address] Grove talked to about patient leaving early, she approved it with educating patient about signs and symptoms of needing to return to hospital. documented in this encounter Plan of Treatment Upcoming Encounters Date Type Specialty Care Team Description 06/22/2022 Lab Laboratory Medicine Maria Del Rosario Gomez AP RN, C.N.P., M.S. [address] [place] [phone] (Wo rk) 06/22/2022 Infusion Oncology Maria Del Rosario Gomez APRN, C.N .P., M.S. [address] [place] [phone] (Wo rk) 06/29/2022 Lab Laboratory Medicine Maria Del Rosario Gomez AP RN, C.N.P., M.S. [address] [place] [phone] (Wo rk) 06/29/2022 Infusion Oncology Maria Del Rosario Gomez APRN, C.N .P., M.S. [address] [place] [phone] (Wo rk) documented as of this encounter Procedures Procedure Name Priority Date/Time Associated Comments Diagnosis UPPER EUS Routine 01/12/2021 10:14 AM Malignant Neoplasm Re sults for this CDT Of Pancreas (HCC) procedure are in the results section. ENDOSCOPIC Routine 01/12/2021 10:14 AM Malignant Neoplasm ULTRASOUND (EUS) CDT Of Pancreas (HCC) documented in this encounter Results Upper EUS (01/12/2021 10:14 AM CDT) Specimen (Source) Anatomical Collection Method Collection Time Re ceived Time Location / / Volume Laterality 01/12/2021 10:14 AM CDT Impressions [employer] - 01/12/2021 11:26 AM CDT Post-op Diagnoses: ? - The purposes of the exam today was for celiac plexus block ? - Celiac plexus block performed w ith total of four mL of 0.25% ? bupivacaine and 2 mg of triamcino lone (40 mg/mL). ? - Three stents noted. ? - No specimens collected. Narrative [employer]ATION - 01/12/2021 11:26 AM CDT Gonda 2 GI Patient Name: Adam Campbell Date of : 1965 Age: 55 Gender: Male Procedure Date: 01/12/2021 Procedure: ? Upper EU S Providers: ? Tina Grove MD Referring Provider: ?Deborah Hunter Ma Pre-op Diagnoses: ?Pancreatic adenocarcinoma, Abdominal pain Recommendation: ? - The patient will be observed po st-procedure, until all discharge ? criteria are met. ? - Return to referring physician. Findings: ? ENDOSONOGRAPHIC FINDING: : ? The region of the celiac plexus w as visualized and showed no sign of ? significant endosonographic abnor mality. Celiac plexus block was ? performed. The region of the mike ac plexus was identified ? endosonographically with Color Do ppler imaging, using the take-off of ? the celiac trunk from the anterio r aspect of the aorta as the main ? anatomical landmark. Color Dopple r guidance was also used to confirm a ? lack of significant vascular stru ctures within the injection needle ? path. Using a transgastric approa ch, a 22 gauge needle was advanced to ? an injection site in the area of the celiac artery take-off. Needle ? aspiration was performed prior to injection to exclude entry into a ? blood vessel. A total of four mL of 0.25% bupivacaine and 2 mg of ? triamcinolone (40 mg/mL) were inj ected for the celiac plexus block. The ? needle was then withdrawn. Procedural Details: ? The patient was seen, [...] oxygen saturations ? were monitored continuously. The Endosonoscope was introduced through ? the mouth, and advanced to the an trum of the stomach. The upper EUS was ? accomplished without difficulty. The patient tolerated the procedure ? well. Complications: ? No immedia te complications. Estimated Blood Loss: ?Estimated blo od loss: none. Attending Participation: I personally pe rformed the entire procedure. Nikki Grove MD 01/12/2021 11:25:54 AM This report has been signed electronical ly. Number of Addenda: 0 Note Initiated On: 01/12/2021 10:14 AM Deborah Valera GI PROCEDURE ORDERABLES Performing Organization Address City/State/ZIP Code Phon e Number [employer] NA documented in this encounter Visit Diagnoses Diagnosis Malignant Neoplasm Of Pancreas (HCC) documented in this encounter Administered Medications Inactive Administered Medications - up to 3 most recent administrations Medication Order MAR Action Action Date Dose Rate Site bupivacaine 0.25% 20 Given 01/12/2021 11:00 AM CDT mL-triamcinolone 80 mg injection (Celiac Plexus Block) Code/trauma/sedation medication, Starting on Mon01/12/21 at 1100 heparin flush 500 Units Given 01/12/2021 12:18 PM CDT 500 Units 500 Units, intra-catheter, During hospitalization, line care, Prior to discharge, Starting on Mon01/12/21 at 0941, For 1 dose, PACU & Post-Op, Implanted Vascular Access Device (IVAD) Venous Non-Valved: Following saline flush prior to discharge. lactated ringers Continued from OR 01/12/2021 11:20 AM 20 mL/hr 20 mL/hr 20 mL/hr, intravenous, CDT Continuous, Starting on Mon01/12/21 at 1115, PACU & Post-Op documented in this encounter Care Teams Blueprint Engineer Relationship Specialty Start Date End Date Elsewhere, Pcp PCP - General Family Medicine 08/12/20 documented as of this encounter
--- OUTSIDE RECORDS SUMMARY | 2022-06-18 16:16 | XMS_ITS | Encounter Summary ---
:1965 Author Organization [facility] Address [address] [place] [address] Care Team Providers Name Role Phone Elsewhere, Pcp Primary Care Provider Unavailable Encounter Details Date Type Department Care Team Description 01/12/2021 Anesthesia Event Division of Warren Coreas APRN, MOBILE SALES CONSULTANT [address] [place] [phone] [place] [address] [place] [address] [place], [place] [address] [place] [address] Anesthesia Record Procedure Summary Procedure Name Responsible Anesthesia Start Anesthesia Stop Anesthesiologist Time Time ENDOSCOPIC Jermaine Coreas APRN, 01/12/21 1035 01/12 1115 ULTRASOUND (EUS) MOBILE SALES CONSULTANT Events Date Time Event Comment 01/12/2021 0935 1035 An Start Machine/Equipmen t Checked Infection Precautions Foll owed Procedure/Site Verified NPO Sta tus Verified Supine Standard ASA Mon itors Applied 1036 Turnover to Proceduralist 1044 Proc Start 1104 Proc Fin 1105 Turnover to ANE Staff 1111 an stop data 1115 An End I completed my h andoff [...] 50 mcg/mL 100 mcg propofol 10 mg/mL injection 50 mg propofol 10 mg/mL infusion 212.48 mg ondansetron PF 4 mg/2 mL injection 4 mg Lactated Ringers Free Drip 300 mL Agents No agents on file. Blood No blood administrations on file. Lines, Drains, and Airways Type Details Placement Removal Implanted Port Single 11/05/20; 1225; Permanent 11/05/20 1225 by Lumen (tunneled, implanted); Raymond Escobedo, Yes; Yes; Yes; Yes; R.N. Alcohol, Chlorhexidine (Preferred); Yes; Cap, Gloves, Gown, Large drape, Mask (Clinician), Mask (All others in room); N/A; Non-valved; Right; Chest; Power injectable; Securement dressing, Sutured; Dr. Wolf Peripheral IV Placement Date: 12/11/20 12/11/20 1055 by 0000 [facility] Placement R.N. Time: 1055 (placed at outside facility); Existing LDA Placed by: Other (Comment); Catheter Size: 20 G; Orientation: Left; Location: Antecubital; Removal Date: 02/01/21; Removal Reason: No longer in place documented in this encounter Social History Tobacco [...] How often do you attend muslim or christianity services? 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 documented as of this encounter OR Notes Anesthesia Postprocedure Evaluation - Jermaine Coreas APRN, CRNA - 01/12/2021 11:19 AM CDT Patient: Adam Campbell Procedure Summary Date: 01/12/21 Room / Location: Division of Gastroenterology in [place], [place] Anesthesia Start: 1035 Anesthesia Stop: 1115 Procedure: ENDOSCOPIC ULTRASOUND (EUS) Diagnosis: Malignant Neoplasm Of Pancreas (HCC) Scheduled Providers: Reji Aguiar APRN, CRNA Responsible Provider: Jermaine Coreas APRN, CRNA Anesthesia Type: MAC ASA Status: 3 Anesthesia Type: MAC Last vitals Vitals Value Taken Time BP 105/69 01/12/21 1117 Temp 36.4 ??C 01/12/21 1117 Pulse 74 01/12/21 1118 Resp 8 01/12/21 1118 SpO2 97 % 01/12/21 1118 Vitals shown include unvalidated device data. Please [...] Hydration status: euvolemic Anesthesia Preprocedure Evaluation - Melissa Rahman M.D. - 01/12/2021 9:35 AM CDT Preprocedure Anesthesia & H&P Assessment Procedure Summary Date/Time: 01/12/21 1015 Scheduled providers: Reji Aguiar APRN, CRNA Procedure: ENDOSCOPIC ULTRASOUND (EUS) Diagnosis: Malignant Neoplasm Of Pancreas (HCC) [C25.9] Location: Division of Gastroenterology in [place], [place] Pertinent components of the patient's history including current problem list, medical history, surgical history, family history, social history, medications and allergies were reviewed. Present illnessand pre-op diagnosis were confirmed. The planned surgery / procedure was verified with the patient /legal guardian. The patient's general health condition remains unchanged RELEVANT COMORBID CONDITIONS GENETICS (+) Hyponatremia GI (+) Gastroesophageal Reflux Disease NOS ONC (+) Malignant Neoplasm Of Pancreas (HCC) OBJECTIVE PHYSICAL EXAMINATION Airway (HEENT) Mallampati: II TM Distance: >3 FB Neck ROM: Full Mouth Opening: >3 cm Upper Lip Bite Test Class: I Cardiovascular Rhythm: Regular Rate: Normal Cardiovascular Assessment: cardiovascular normal Functional Capacity: >4 METS Pulmonary Pulmonary Assessment: Clear General / Constitutional Constitutional Assessment: Normal General State of Health:: calm Neurological Neurologic Assessment:??alert Dental Normal ASSESSMENT / PLAN ANESTHESIA PLAN ASA: 3 Anesthesia Plan: MAC Patient seen and allergies reviewed, anesthesia plan and risks discussed directly with patient /legal guardian or through an hose mender. The use of blood products not discussed Approval to Proceed: approved for anesthesia Missy gonzales from [place], [place]; BMI 22; pancreatic adenocarcinoma (original diagnosis in 07/2020) complicated by malignant biliary stenosis requiring stents, ERCP pancreatitis, and infected nonocclusive portal vein thrombosis; multifactorial pain including cancer-associated pain on Dilaudid; multiple GlideScope intubations recently. No recent N&V. Plan MAC but will convert to GETA if indicated.Dilaudid is working well for pain control. documented in this encounter Plan of Treatment Upcoming Encounters Date Type Specialty Care Team Description 06/22/2022 Lab Laboratory Medicine Maria Del Rosario Gomez AP RN, C.N.P., M.S. [address] [place] [phone] (Mj godoy) 06/22/2022 Infusion Oncology Maria Del Rosario Gomez APRN, C.N .P., M.S. [address] [place] [phone] (Mj godoy) 06/29/2022 Lab Laboratory Medicine Maria Del Rosario Gomez AP RN, C.N.P., M.S. [address] [place] [phone] (Wo rk) 06/29/2022 Infusion Oncology Maria Del Rosario Gomez APRN, C.N .P., M.S. [address] [place], [place] [phone] (Wo rk) documented as of this encounter Visit Diagnoses Not on filedocumented in this encounter Administered Medications Inactive Administered Medications - up to 3 most recent administrations Medication Order MAR Action Action Date Dose Rate Site fentaNYL injection (SUBLIMAZE) Given 01/12/2021 10:40 AM CDT 50 mcg intravenous, As needed, Starting on Mon01/12/21 at 1036, Anesthesia Intra-op Given 01/12/2021 10:36 AM CDT 50 mcg lactated ringers New Bag 01/12/2021 10:36 AM CDT intravenous, Continuous Infusion: Per Instructions PRN, Starting on Mon01/12/21 at 1036, Anesthesia Intra-op ondansetron (PF) injection (ZOFRAN) Given 01/12/2021 10:36 AM CDT 4 mg intravenous, As needed, Starting on Mon01/12/21 at 1036, Anesthesia Intra-op propofol 10 mg/mL infusion Rate/Dose 01/12/2021 100 mcg/kg/min 39.84 (DIPRIVAN) Change 10:46 AM CDT mL/hr intravenous, Continuous Infusion: Per Instructions PRN, Starting on Mon01/12/21 at 1036, Anesthesia Intra-op New Bag 01/12/2021 10:36 AM CDT 150 mcg/kg/min 59.76 mL/hr propofoL injection (DIPRIVAN) Given 01/12/2021 10:36 AM CDT 50 mg intravenous, As needed, Starting on Mon01/12/21 at 1036, Anesthesia Intra-op documented in this encounter Care Teams Threading Machine Setter Relationship Specialty Start Date End Date Elsewhere, Pcp PCP - General Family Medicine 08/12/20 documented as of this encounter
--- OUTSIDE RECORDS SUMMARY | 2022-06-18 16:16 | XMS_ITS | Encounter Summary ---
:1965 Author Organization [facility] Address [address] [place] [id number] Care Team Providers Name Role Phone Elsewhere, Pcp Primary Care Provider Unavailable Reason for Referral Outpatient (Routine) - Closed Specialty Diagnoses / Procedures Referred By Contact Refer red To Contact Palliative Medicine Romi Sparrow [place] M.D. [address] [place] [phone] Referral ID Status Reason Start Date Expiration Date Visits Requ ested Visits Authorized [id number] Closed 01/11/2021 01/11/2022 1 1 Reason for Visit Outpatient (Routine) - Closed Specialty Diagnoses / Procedures Referred By Contact Refer red To Contact Palliative Medicine Diagnoses Pain Cancer Associated Casandra Julio M.D. [facility] Referral ID Status Reason Start Date Expiration Date Visits Requ ested Visits Authorized [id number] Closed 01/01/2021 01/01/2022 1 1 Encounter Details Date Type Department Care Team Description 01/11/2021 Comprehensive Visit Department of Casandra Julio M.D. [facility] Romi Sparrow M.D. [address] [place] [phone] Associated Monico Perdomo Emily N, R.N., C.M.S.R.N., [facility] [address] [place] [phone] [place] [address] [place] [address] Social History Tobacco Use Types Packs/Day Years [...] How often do you attend presybeterian or cheondoism services? 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 documented as of this encounter Last Filed Vital Signs Vital Sign Reading Time Taken Comments Blood Pressure 99/60 01/11/2021 2:34 PM CDT Pulse 94 01/11/2021 2:34 PM CDT Temperature 36.5 ??C (97.7 ??F) 01/11/2021 2:34 PM CDT Respiratory Rate - - Oxygen Saturation - - Inhaled Oxygen Concentration - - Weight - - Height - - Body Mass Index - - documented in this encounter Patient Instructions Patient InstructionsJackie Marc R.N., C.M.S.R.N., [facility] - 01/11/2021 3:00 PM CDT 0.5 mg ativan--may continue this twice a day as needed; please do not take the same time as opioid medications. Please let us know if you are needing this more than two times per week; if so, we may need to discuss further options for anxiety management. Pancreatic Enzymes-NEW MEDICATION 1-2 capsules -Take 1 capsule with your first bite of a snack -Take 2 capsules with meals; the first one with first bite of food, second capsule about custodial through meal Please call us at [phone] if you have questions or concerns. We are happy to talk you through any symptom management needs. Will plan for follow up in one month. documented in this encounter Progress Notes Jackie Marc R.N., [facility] - 01/11/2021 3:00 PM CDT Palliative Care Introduction I introduced the patient and/or family to role of palliative medicine in the care of patients with serious illness, namely expertise in pain and non-pain symptom management, psychosocial, and spiritualsupport for patients and families as well as assistance in broader medical decision making. Palliative Medicine Clinic team sheet and contact information was reviewed with the patient. Chief Complaint/Purpose of Visit Patient was here for patient education. Patient was referred by Dr. Romi Sparrow Impression/Report/Plan Please see After Visit Summary for specific patient instructions. Patient Education: Education provided to patient For details involving the learning needs assessment, teaching methods used, and evaluation of learning, please refer to the patient education flowsheet. Education topics covered in this visit include: Clinic Care Team/Contacting the Clinic, Pain, Constipation , Medication Safety and Opioid Medication Standard Opioid education included: Safe Management of Controlled Substances [id number] Important Information About Opioid Medication [id number] (page 7 opioid withdrawal) Treating Constipation Caused by Pain Medications [id number] Opioid Storage and Safety MC 7891-06 Palliative Medicine Clinic contact information, opioid refill parameters and follow up policy Educational materials provided were: Opioid Storage and Safety MC 7891-06, Palliative Care: Care for People with Serious Illness [id number], Safe Management of Controlled Substances [id number] and Treating Constipation Caused by Pain Medications [id number] Follow-up as per the consult note of Dr. Romi Sparrow documented in this encounter Consult Notes Richy Disla M.D. - 01/11/2021 3:00 PM CDT SUBJECTIVE PRIMARY CARE PROVIDER ELSEWHERE, PCP Patient Care Team: Adrian Mills M.D. as External Primary Care Physician (Family Medicine) REFERRING PROVIDER Casandra Julio M.D. [phone] REFERRING SERVICE IPCS CHIEF COMPLAINT / REASON FOR CONSULT Adam Campbell is a 55 y.o. male from [place], [place] with pancreatic adenocarcinoma diagnosed 07/2020 complicated by malignant biliary stenosis requiring stents, ERCP-induced necrotizing pancreatitis, and infected nonocclusive portal vein thrombosis who presents for evaluation of non-pain symptoms, pain and psychosocial support. HISTORY OF PRESENT ILLNESS The patient's medical history has been well delineated in the electronic medical record. I refer youto the detailed notes of Lianne Shah APRN, Dr. Reji Travis, and Dr. Deborah Murray for full details. Briefly, patient was diagnosed with pancreatic adenocarcinoma 07/2020 and has had a difficult course including many hospitalizations since diagnosis for complications from his malignancy including biliary stenosis, ERCP pancreatitis and pseudocyst s/p multiple necrosectomies, and gastric-cyst fistula with strep anginosus infection. He was recently seen in the outpatient setting on 12/[address] Travis and determined not to be a surgical candidate with recommendations to pursue palliative management. He was s ubsequently seen by his oncologist Dr. Murray later that day to consider further treatment options. Due to previous infectious complications from systemic chemotherapy, Dr. Murray was considering him for radiation or chemoradiation. However, outpatient Radiation Oncology consult is pending because patient was found to have significant severe pain while seeing Dr. Murray which required IPCS hospitalization from 12/31-01/02/21 for uncontrolled mid-lower central back pain. The etiology for his increased pain was unclear on discharge with unremarkable thoracic/lumbar MRI and normal LFTs. Pain improved significantly with rotation from oxycodone (had been taking 10 mg 3-4 times daily) to hydromorphone. Patient was additionally noted to have abdominal pain and was planned for outpatient endoscopic celiac plexus block(for cutaneous was limited secondary to pancreatitis), which remains an outpatient consideration with EUS planned for 01/12/2021. Pain regimen on discharge included hydromorphone 4 mg p.o. q.3 hours p.r.n., Tylenol 1000 mg t.i.d., and lidocaine cream. He was continued on MiraLax b.i.d. and senna 8.6 mg 3 tabs b.i.d. for constipation. He was continued on Zofran 8 mg p.r.n. for nausea. This afternoon, I had the opportunity to meet with the patient. Patient reports that he continues have significant back pain, but is under adequate control with his current pain regimen. He is taking his Dilaudid every 3-6 hours during the daytime and rarely overnight. He occasionally has back pain that wakes him up overnight, however he reports that this is after he pushes himself during the day, such as with significant activity or driving. Patient additionally endorses abdominal pain which is often postprandial or associated with gas/bloating, but can come at any time. He is hopeful that celiac plexus block will be helpful for this pain. He feels oxycodone helped this pain more, however his Dilaudid is most helpful for his back pain and he would like to continue with the law did for now. He does not like pain medications and is hoping to eventually be able to taper. Patient reports he is taking MiraLax b.i.d. and senna 3 tablets in the morning and sometimes 3 tablets in the evening, depending upon how much opioid he has taken. He has bowel movements about every other day, but occasionally has to use enema for constipation. Denies any significant nausea or vomiting. He reports that he continues to eat ???anything he wants?? to try and gain weight, but is not able to gain weight. Patient reports that he is unsure if his appointment with radiation oncology was to start radiation or just discuss it. He reports that he is not being considered for surgery ???right now?? because ofthe inflammation. He expresses hope that we can ???keep him living?? . Patient initially declined any emotional distress, but on further questioning reports that he does struggle with anxiety occasionally having ???bad days?? . During these times, he uses lorazepam to good effect. He has only use this approximately 5-6 times total since he was prescribed it. Current Outpatient Medications Medication Sig ??? acetaminophen (TYLENOL) 500 mg tablet Take 2 tablets (1,000 mg total) by mouth 3 (three) times aday. ??? HYDROmorphone (DILAUDID) 4 mg tablet Take 1.5 tablets (6 mg total) by mouth every 3 (three) hours as needed for pain Indication: Chronic Pain/Nonacute Pain. ??? lidocaine (LMX) 4 % cream Apply 1 application topically 3 (three) times a day as needed for pain. May try over the counter lidocaine cream for back pain ??? ondansetron (ZOFRAN) 8 mg tablet Take 1 tablet (8 mg total) by mouth every 8 (eight) hours as needed for nausea or vomiting. ??? pantoprazole (PROTONIX) 40 mg EC tablet [...] mouth 2 (two) times a day. ??? lidocaine-prilocaine (EMLA) 2.5-2.5 % cream APPLY TOPICALLY NEEDED (30 MINUTES PRIOR TO PORT ACCESS) ??? qgstxo-ipuonvqd-tsbdalj (CREON) 24,000-76,000-120,[address] capsule Take 1-2 capsules by mouth as needed for snacks. Take 1 capsule with snacks, take 2 capsule with meals ??? LORazepam (Ativan) 0.5 mg tablet Take 1 tablet (0.5 mg total) by mouth 2 (two) times a day as needed for anxiety. Social History: with 2 children and 3 grandchildren. Lives at home with , Shaniqua Campbell. has MS and patient reports they help each other out. They also have engineering and development director come into the home to help at times. 1 child in the [facility], rarely talks to. 1 child in [place], does not talk to often. 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 He is applying for SSD. Patient enjoys yardwork at home and cars. 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 Spiritual Assessment: No spiritual concerns identified. Reports he is spiritual but declines need for Collar Worker at this time. Advance Care Planning: Documented surrogate decision maker? , Shaniqua Campbell Does patient have an Advance Directive? no, reports he is working on one CODE STATUS Prior REVIEW OF SYSTEMS As described in the history of present illness otherwise reviewed with patient and non-contributory to the current encounter. [place] Scores Who completed this form?: Family No Pain = 0 and Worst Pain = 10: 3 No Fatigue = 0 and Worst Fatigue = 10: 3 No Nausea = 0 and Worst Nausea = 10: 3 No Depression = 0 and Worst Depression = 10: 3 No Anxiety = 0 and Worst Anxiety = 10: 8 No Drowsiness = 0 and Worst Drowsiness = 10 : 2 No Shortness of Breath = 0 and Worst Shortness of Breath = 10: 7 Best Appetite = 0 and Worst Appetite = 10: 5 Best Feeling of Well Being = 0 and Worst Feeling of Well Being = 10: 8 Best Sleep = 0 and Worst Sleep = 10: 5 No Financial Distress (Distress/suffering experienced secondary to financial issues) = 0 and Worst Financial Distress = 10: 1 No Spiritual Pain (Pain deep in your soul/being that is not physical) = 0 and Worst Spiritual Pain =10: 0 Palliative Functional Assessment 70%-Reduced ambulation, Unable to do normal job/work with significant evidence of disease, Full self-care, Normal or reduced intake, Full level of consciousness NCCN Distress Thermometer Thermometer distress score (0 = no distress, 10 = extreme distress): 0 Practical problems: NCCN Distress - practical: none Family problems: NCCN Distress- Family: none Emotional problems: NCCN Distress- emotional: none (of note subsequently endorsed anxiety) Spiritual/cheondoism concerns: yes OBJECTIVE PHYSICAL EXAM Temperature: [36.5 ??C] 36.5 ??C Blood Pressure: (99)/(60) 99/60 Pulse Rate: [94] 94 General: Fatigued; no acute distress Eyes: Conjunctiva clear, sclera non-icteric Neck: No jugular venous distention noted Extremities: No lower extremity edema noted. Psychiatric: Oriented X3, intact recent and remote memory, judgment and insight, congruent mood and affect. ASSESSMENT / PLAN #1 Pancreatic adenocarcinoma (diagnosed 07/2020), not a surgical candidate #2 Multiple complications of malignancy including malignant biliary stenosis requiring stents, ERCP-induced necrotizing pancreatitis, and infected nonocclusive for vein thrombosis #3 Multifactorial pain including cancer-associated pain #4 Palliative Care, Z51.5 Adam Campbell is a 55 y.o. male from [place], [place] with pancreatic adenocarcinoma diagnosed 07/2020 complicated by malignant biliary stenosis requiring stents, ERCP-induced necrotizing pancreatitis, and infected nonocclusive portal vein thrombosis who presents for evaluation of non-pain symptoms, pain and psychosocial support. We introduced the patient and their caregiver's to role of palliative care in the care of patients with serious illness, namely expertise in pain and non-pain symptom management, psychosocial, and spiritual support for patients and families as well as assistance in broader medical decision making. I have reviewed the patient's case and plan of care with Dr. Romi Sparrow. It was a pleasure to see Mr. Campbell today. He continues to have significant back pain and abdominal pain which is currently under control with current hydromorphone dosing. He is prescribed hydromorphone 4 mg p.o. q.3 hours p.r.n. and is currently using Tylenol 1000 mg t.i.d. as well as hydromorphone every 3-6 hours during the daytime. He is planned for a celiac plexus block tomorrow which he is hopeful will help the abdominal pain. We will plan to continue current hydromorphone dosing and hold on any conversion to long-acting therapy until we see how his celiac plexus blockade affects his pain. For his abdominal discomfort as well as nutritional status, we discussed with GI and will recommend pancreatic enzyme initiation. This will likely help with nutrition more than abdominal discomfort. He struggles with some constipation and is currently taking MiraLax b.i.d. as well as senna 3 tablets in the morning and, inconsistently, 3 tablets at night. Recommend patient take his senna 3 tablets b.i.d. scheduled as well as his MiraLax b.i.d. and continue enemas p.r.n.. Patient occasionally struggles with anxiety related to new diagnosis, for which he uses lorazepam p.r.n. to good effect. We have provided a limited refill of this medication and recommend that if patient is taking it more than twice weekly he let us know so we can consider other pharmacologic therapies. Patient reported at various times during interview that his goal is for us to keep him living and that he is not a surgical candidate right now. Further discussions regarding illness understanding and advanced care planning may be beneficial as he continues his illness course. RECOMMENDATIONS - Continue Tylenol 1000 mg t.i.d. and hydromorphone 4 mg p.o. q.3 hours p.r.n. - Recommend senna 3 tablets b.i.d. and continue MiraLax b.i.d. scheduled - Re-ordered limited prescription of lorazepam 0.5 mg p.o. b.i.d. p.r.n. for anxiety. Recommend patient let us know if he is using more than 2 times weekly to consider alternative pharmacologic therapy. Patient declined social work consult at this time, until he discusses this with his . - Initiate pancreatic enzyme therapy. 1 capsule with snacks and 2 capsules with meals. Follow-up with GI as scheduled. - Follow-up in 1 month. Thank you for the opportunity to see this patient. Patient has our contact information and understands to call with new/worsening symptoms or concerns. We will work alongside the primary outpatient team to address these issues. Palliative care outpatient clinic will continue to follow along. Follow up visit: 1 month Richy Disla M.D. Associated attestation - Romi Sparrow M.D. - 01/11/2021 5:43 PM CDT Palliative Medicine Personal Service Workers Attestation Statement I have seen and evaluated the patient along with Dr. Disla, Resident Physician, and have reviewed the pertinent clinical history and findings. The patient's assessment and plan were discussed in detail, and I agree with the history, findings and recommendations as documented in today's note. Briefly Mr. Cambpell is a 55-year-old gentleman with pancreatic adenocarcinoma complicated by malignantbiliary stenosis requiring stents and necrotizing pancreatitis who recently was admitted on the inpatient palliative care service to assist in pain management. He was dismissed January 02 on hydromorphone 4 mg every 4 hours as needed. He typically takes this about 4 times a day and does find it to be quite helpful for his back pain. He feels that the back pain is a worsens when he is more active especially doing yard work or trying to be physically active. He does a history of similar type of back pain when he would stand for long periods of time as well. MRI of thoracic and lumbar spine demonstrated no evidence of metastatic disease with scattered disc bulges most prominent at L5-S1. He also notes some abdominal bloating and pain in the left and mid to lower abdomen that comes and goes especially will be painful when he has an episode of cramping or gas. He feels that he is eating better but not getting as much weight as he would hope. He has to be cautious with fatty foods. He is scheduled for a celiac plexus block tomorrow which is looking forward to. Mr. Campbell is understands at this point that he has localized pancreatic cancer and that surgery is not an option at this point. He understands that he will meet with Radiation Oncology on Monday to discuss radiation and is very hesitant to get further chemotherapy given the complications previously. He seems to think that surgery could be an option in the future although I explained that per Dr. Travis's note this surgery would not be an option. He however remains hopeful that he could recover well from this and would like to continue to live a long life. He at times does feel overwhelmed and anxious about his diagnosis and noted that previously lorazepam 0.5 mg was helpful he would take it only occ asionally. He was interested in having a prescription for this as well. I explored with Mr. Campbell that we will continue to be available for support and help with symptom management moving forward. His pain at this point seems to be controlled and he would like to not make any changes and will continuethe Dilaudid as is. In fact he would like to be able to decrease in the future. Here he has celiac plexus block scheduled for tomorrow. Regarding his anxiety on I explained the beneficial role of seeing our delinquency prevention social worker Britta Jennings [facility] for further support he would like to think about this more. I think it is reasonable to give a small dose of lorazepam for him to use 0.5 mg which could be used twice a day as needed I asked him to take this at least a couple hours away from when he is taking the hydromorphone. In addition if he needs to take this more than a couple times a week and we really should consider a different medicationfor the anxiety. In addition I did reach out his door slinger regarding question pancreatic enzymes. It is unclear how much help this will be given his necrotizing pancreatitis although it would not be harmful and therefore I went ahead and gave him a prescription for that as well. He also continues to have difficulty constipation we advised him to increase the senna to 3 tablets twice a day and continue the MiraLax twice a day as well. We provided Mr. Campbell with contact information for our clinic and some education regarding how to contact us. We will plan to see him back in about a month. For further details of our visit please see the note of Dr. Disla. Romi Sparrow M.D. documented in this encounter Plan of Treatment Upcoming Encounters Date Type Specialty Care Team Description 06/22/2022 Lab Laboratory Medicine Maria Del Rosario Gomez AP RN, C.N.P., M.S. [address] [place] [phone] (Mj rk) 06/22/2022 Infusion Oncology Maria Del Rosario Gomez APRN, C.N .P., M.S. [address] [place] [phone] ( jayne) 06/29/2022 Lab Laboratory Medicine Maria Del Rosario Gomez AP RN, C.N.P., M.S. [address] [place] [phone] (Mj rk) 06/29/2022 Infusion Oncology Maria Del Rosario Gomez APRN, C.N .P., M.S. [address] [place] [phone] ( jayne) Scheduled Referrals Name Type Priority Associated Order Schedule Diagnoses Palliative Care Outpatient Referral Routine Expec sally: office visit 02/11/2021 (clinic) (Approximate), Expires: 01/12/2024 documented as of this encounter Visit Diagnoses Diagnosis Pain Cancer Associated documented in this encounter Additional Health Concerns Infection Onset Date Last Indicated Resolved Time COVID19 Pending 01/11/2021 01/11/2021 01/11/2021 6:20 PM CDT documented as of this encounter Care Teams Receipt And Report Clerk Relationship Specialty Start Date End Date Elsewhere, Pcp PCP - General Family Medicine 08/12/20 documented as of this encounter
--- OUTSIDE RECORDS SUMMARY | 2022-06-18 16:16 | XMS_ITS | Encounter Summary ---
:1965 Author Organization [facility] Address [address] [place] [address] Care Team Providers Name Role Phone Elsewhere, Pcp Primary Care Provider Unavailable Reason for Referral Outpatient (Routine) - Closed Specialty Diagnoses / Procedures Referred By Contact Refer red To Contact Radiation Oncology Diagnoses Malignant Neoplasm Of Pancreas (HCC) Efren Hyman APRN, [facility] C.N.P., M.S. [address] [place] [address] Referral ID Status Reason Start Date Expiration Date Visits Requ ested Visits Authorized [id number] Closed 01/15/2021 01/15/2022 1 1 Scheduling Instructions Please schedule consult to meet Dr. Nicky mcneill or Dr. Ramon prior to start of RT in [place]. Pt will receive weekly gemci tabine in [place]. Radiation Therapy (Routine) - Closed Specialty Diagnoses / Procedures Referred By Contact Refer red To Contact Diagnoses Malignant Neoplasm Of Pancreas (HCC) Lesia Silva M.D., Ph.D. [facility] Procedures Initial Rad Onc Treatment Planning CT Simulation [address] [place] [phone] Referral ID Status Reason Start Date Expiration Date Visits Requ ested Visits Authorized [id number] Closed 01/15/2021 01/15/2022 1 1 Radiation Therapy (Routine) - Canceled Specialty Diagnoses / Procedures Referred By Contact Refer red To Contact Diagnoses Malignant Neoplasm Of Pancreas (HCC) Lesia Silva M.D., Ph.D. [facility] Procedures Prior Auth Rad Tx [facility] IMRT COMPLEX [address] [place] [phone] Referral ID Status Reason Start Date Expiration Date Visits V isits Requested Authorized [id number] Canceled 01/20/2021 01/15/2022 25 25 Outpatient (Routine) - Closed Specialty Diagnoses / Procedures Referred By Contact Refer red To Contact Radiation Oncology Diagnoses Malignant Neoplasm Of Pancreas (HCC) Deborah Murray M.B.B.S. [facility] [address] [place] [phone] Referral ID Status Reason Start Date Expiration Date Visits Requ ested Visits Authorized [id number] Closed 12/31/2020 12/31/2021 1 1 Reason for Visit Outpatient (Routine) - Closed Specialty Diagnoses / Procedures Referred By Contact Refer red To Contact Radiation Oncology Diagnoses Malignant Neoplasm Of Pancreas (HCC) Deborah Murray M.B.B.S. [address] [phone] Referral ID Status Reason Start Date Expiration Date Visits Requ ested Visits Authorized [id number] Closed 12/31/2020 12/31/2021 1 1 Encounter Details Date Type Department Care Team Description 01/15/2021 Hospital Encounter Department of Lesia Silva Loose Bo dy Left Wrist (Primary Dx); Radiation Oncology Chanelle, Ph.D. Malignant Neoplasm Of Pancreas (HCC) in [address] [place] [phone] [place], [place] [phone] (Work) [phone] Social History Tobacco Use Types Packs/Day Years [...] How often do you attend orthodoxy or confucianist services? 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 - 01/15/2021 9:30 AM CDT Images from the original note were not included. SUBJECTIVE REQUESTING PROVIDER Deborah Murray M.B.B.S. REASON FOR CONSULT Supervising physician: Lesia Silva MD, PhD ([phone]). Asked to see patient for evaluation for possible definitive chemoradiation for pancreas cancer. HISTORY OF PRESENT ILLNESS Mr. Adam Campbell is a 55-year-old male with a diagnosis of pancreas cancer. His oncologic history is as follows: Oncology History Malignant Neoplasm [...] with Radiation ) Start Date: 01/25/2021 (Planned) Mr. Adam Campbell comes to Radiation Oncology today for evaluation for possible radiation therapy for pancreas cancer. Symptomatically, Mr. Campbell reports that he has fairly significant pain that radiates from his abdomen to his back. He noticed some improvement after the celiac plexus block for approximately two days. However, he states that at 4:00 a.m. this morning he had significant pain that he rated 9 of 10. He took some Dilaudid this morning and he rates his pain currently at 3 of 10. Mr. Campbell states that he lost approximately 50 lb in weight since his diagnosis. However, he has been able to gain 5 lb back and his weight has remained stable over the prior two weeks. He reports having problems with early satiety and postprandial pain that limits the amount of food that he can take in. He reports that his stools are normal color. He is having more problems with constipation while being on the narcotics for pain control, but he is using MiraLax and senna in able to regulate his bowels fairly well. He is noticing that he is having some shortness of breath with exertion stating ???I run out of air?? sometimes but not at other times. He denies any chest pain, heart palpitations, new focal neurologic deficits, fevers, drenching night sweats, or new bony pain. He recently in in noticed to firm nodules in his left radial wrist area; he has not noted any swelling in his upper extremity. He denies any pain in his calves with walking. He saw his local provider who stated that these were not a ganglion cyst. He denies any pain with these nodules. Mr. Campbell denies any prior history of radiation therapy. He states that he lives approximately 1 mile from our outreach radiation oncology practice in [place], [place], so he would prefer to have treatment there possible. Prior radiation therapy: No REVIEW OF SYSTEMS Constitutional: Positive for fatigue and weight loss of more than 10 pounds. Respiratory: Positive for dyspnea. Gastrointestinal: Positive for abdominal (belly) pain or cramping. Genitourinary: Positive for decreased libido. Musculoskeletal: Positive for back pain. Neurological: Positive for excessive daytime sleepiness. Psychiatric/Behavioral: Positive for decreased libido and excessive daytime sleepiness/tiredness. The following systems were negative: Skin, Eyes, ENT, CV, Hematologic as noted above in the history of present illness. Current Outpatient Medications: ??? acetaminophen (TYLENOL) 500 mg tablet, Take 2 tablets (1,000 mg total) by mouth 3 (three) times a day., Disp: , Rfl: ??? HYDROmorphone (DILAUDID) 4 mg tablet, Take 1.5 tablets (6 mg total) by mouth every 3 (three) hours as needed for pain Indication: Chronic Pain/Nonacute Pain., Disp: 35 tablet, Rfl: 0 ??? lidocaine (LMX) 4 % cream, Apply 1 application topically 3 (three) times a day as needed for pain. May try over the counter lidocaine cream for back pain, Disp: 30 g, Rfl: 0 ??? lidocaine-prilocaine (EMLA) 2.5-2.5 % cream, APPLY TOPICALLY NEEDED (30 MINUTES PRIOR TO PORTACCESS), Disp: , Rfl: ??? toizmp-njvlmgus-neoeany (CREON) 24,000-76,000-120,[address] capsule, Take 1-2 capsules by mouth as needed for snacks. Take 1 capsule with snacks, take 2 capsule with meals, Disp: 120 capsule,Rfl: 0 ??? LORazepam (Ativan) 0.5 mg tablet, Take 1 tablet (0.5 mg total) by mouth 2 (two) times a day as needed for anxiety., Disp: 20 tablet, Rfl: 0 ??? ondansetron (ZOFRAN) 4 mg tablet, Take 1 tablet (4 mg total) by mouth every 8 (eight) hours as needed for nausea or vomiting (1 hour before RT)., Disp: 30 tablet, Rfl: 2 ??? ondansetron (ZOFRAN) 8 mg tablet, Take 1 tablet (8 mg total) by mouth every 8 (eight) hours as needed for nausea or vomiting., Disp: 20 tablet, Rfl: 0 ??? pantoprazole (PROTONIX) 40 mg EC tablet, Take 1 tablet (40 mg total) by mouth every morning before breakfast., Disp: 90 tablet, Rfl: 3 ??? polyethylene glycol (MIRALAX) 17 gram powder packet, Take 1 packet (17 g total) by mouth 2 (two)times a day. Dissolve each 17 g dose in 240 mLs (8 ounces) of beverage., Disp: , Rfl: ??? sennosides-docusate sodium (SENOKOT-S) 8.6-50 mg per tablet, Take 3 tablets by mouth 2 (two) times a day., Disp: , Rfl: No current facility-administered medications for this encounter. Allergies Allergen Reactions ??? Compazine [Prochlorperazine] GI intolerance ??? Ranitidine Hcl Diarrhea Past Medical History: Diagnosis Date ??? Adjustment [...] vein Past Surgical History: Procedure Laterality Date ??? BREAST CYST EXCISION Right ??? CARPAL TUNNEL RELEASE ??? CIRCUMCISION N/A Circumcision ??? IR GONADAL VEIN EMBOLIZATION Left ??? TONSILLECTOMY AND ADENOIDECTOMY N/A Tonsillectomy and adenoidectomy ??? TRIGGER FINGER RELEASE ??? VASECTOMY N/A Vasectomy ??? VASECTOMY 1991 Social History Socioeconomic History ??? Marital status: Spouse name: Shaniqua ??? Number of children: 2 ??? Years of education: Not on file ??? Highest education level: 12th grade Occupational History ??? 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 Smoking [...] with Friends and Family: Never ??? Attends Mosque Services: Never ??? Active Member of Clubs or Organizations: No ??? Attends Club or Organization Meetings: Never ??? Marital Status: Intimate Partner Violence: ??? Fear of Current or Ex-Partner: ??? Emotionally Abused: ??? Physically Abused: ??? Sexually Abused: Family History Problem Relation Age of Onset ??? Lung cancer Maternal Grandmother ??? Alcohol abuse Mother OBJECTIVE Wt 70.4 kg BMI 23.33 kg/m?? PHYSICAL EXAM General: Alert and oriented male in no acute distress. Skin: No concerning skin lesions. No jaundice noted. Eyes: Sclerae anicteric. ENT: Neck is supple without masses. Lymph: No cervical, supraclavicular, infraclavicular, axillary or epitrochlear lymphadenopathy palpable. Heart: Regular rate and rhythm. Lungs: Clear to auscultation bilaterally. No adventitious breath sounds noted. No dullness noted with percussion. Spine: No tenderness with palpation or percussion. Abdomen: Soft, nondistended. Slight tenderness with palpation in the left upper quadrant. No hepatosplenomegaly noted. Bowel sounds are active. No bruit noted. Extremities: Warm and well perfused. No upper lower extremity edema noted. Musculoskeletal: There to somewhat firm but compressible nodules in the left radial wrist without surrounding erythema which are not painful with palpation. ECOG performance status of 2-3. DIAGNOSTICS Labs: Lab Results Component Value Date WBC 7.8 01/15/2021 HGB 10.9 (L) 01/15/2021 HCT 36.0 (L) 01/15/2021 RBC 4.38 01/15/2021 MCV 82.2 01/15/2021 RDW 16.6 (H) 01/15/2021 Lab Results Component Value Date ALT 8 01/15/2021 AST 12 01/15/2021 ALKPHOS 92 01/15/2021 BILITOT 0.3 01/15/2021 Lab Results Component Value Date CREATININE 0.77 01/15/2021 BUN 15 01/15/2021 NA 141 01/15/2021 CL 106 01/15/2021 GLUCOSE CANCELED 01/15/2021 GLUCOSE 86 01/15/2021 CALCIUM 9.0 01/15/2021 Radiology: I personally reviewed the radiology images. Pathology: I personally reviewed the pathology findings. ASSESSMENT / PLAN #1 Malignant Neoplasm Of Pancreas (HCC) Mr. Adam Campbell is a 55-year-old male with pancreas cancer having completed only one cycle of gemcitabine and paclitaxel-protein bound in early October 2020 due to difficulties with recurrent pancreatitis and infection. He is being seen today for evaluation for definitive chemoradiation. I discussed with the patient and his the potential treatment plan with radiation therapy along with concurrent chemotherapy which acts as a radiosensitizer to make the cancer cells more sensitive to the factof the radiation therapy which helps improve local control. Since he is not a surgical candidate, the chemoradiation therapy would be considered destination therapy with radiation therapy given five days a week for approximately five weeks along with weekly gemcitabine. We discussed potential acute side effects from radiation therapy including but not limited to nausea, vomiting, abdominal pain/abdominal cramping, loose stools, loss of appetite and fatigue. Our hope is that he would notice improvement of his epigastric pain with the chemoradiation. All of their questions were answered to the best my ability and to their apparent satisfaction. Mr. Adam Campbell was also seen and evaluated by Dr. Lesia Silva in my presence. Please refer to her attestation for her recommendations for radiation therapy with concurrent chemotherapy including the risks and benefits with treatment. We discussed proceeding with a radiation planning simulation here in [place] with plans to administer the chemotherapy at [place], but deliver the radiation treatments in [place] at her outreach radiation oncology practice. Mr. Campbell expressed agreement with theplan, and therefore, we arranged for radiation planning simulation today with plans to commence treatment once we receive insurance approval approximately January 25, 2021. We will obtain a left wrist x-ray for further evaluation of soft tissue nodules in the left radial wrist. EDUCATION Ready to learn, no apparent learning barriers were identified; learning preferences include listening. Explained diagnosis and treatment plan; patient expressed understanding of the content. CONSENT Discussed the risks, benefits, alternatives, and the necessity of other members of the healthcare team participating in the procedure. All questions answered and consent given. I personally spent 62 minutes in care of the patient today. Time includes both non face to face and face to face patient care. Signed by: Roderick Hyman APRN, C.NLinda 01/15/2021 9:23 AM CDT I was asked by Deborah Murray, M.B.B.S. for an opinion regarding the role of radiation therapy in the management of the patient's disease. I saw and evaluated the patient and I participated in the patel portions of the service. I reviewed the documentation of Mr. Hyman and I agree with the findings and plan. Mr. Adam Campbell is a 55 y.o. 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 Patient has severe narrowing of the SMV, splenic vein, proximal portal vein; tumor is located in the uncinate process. We discussed the rationale for chemoradiation as a destination therapy. He was under the impression that this was neoadjuvant therapy. Drs. Travis and Terri have repeatedly outlined that he is not a surgical candidate. We discussed that chemoradiation can provide prolonged local control of his tumor. Our goal of treatment is local control of his pancreatic mass. Prior to radiation, he will require a CT simulation scan. Radiation would be delivered daily in 50 [address] Murray plans on concurrent IV gemcitabine but would have a low threshold to stop chemotherapy given Mr. Campbell's prior issues. We discussed 25 fractions as it is gentler and it would ta ke him to a safe tolerated local control dose in case we had to stop chemotherapy. We will consider a breath hold technique if his tumor moves > 1 cm on the 4DCT scan. He will need an IMRT plan given his multiple issues with stents and cholangitis to maximally spare as much bowel and liver as possible to minimize acute and late effects of radiation. His tumor is quite infiltrative and abuts many hollow viscus structures (screen shot of CT AP from 12/11/2020): The risks, benefits, and side effects of pancreas radiation were discussed, including but not limited to fatigue, nausea/vomiting, diarrhea, general malaise, poor appetite, abdominal pain. Late side effects may include small bowel obstruction/fistulae, liver damage/radiation induced liver disease, diap hragmatic perforation, and renal toxicity, although these are very rare. We discussed premedication with Zofran as well as staying NPO 2 hours prior to treatment to minimize the risk of nausea. Mr. Campbell is amenable to proceeding with radiotherapy but desires delivery in [place]. We will simulate and plan him in [place] in anticipation of starting radiation on 01/25/2021. He will have hisIV gemcitabine in [place] with Dr. Murray and he agrees with this. I will refer him to my colleagues in [place] for management of his radiation treatments post simulation today. Lesia Silva MD, PhD Bath House Attendant Switch House Operator Department of Radiation Oncology [facility] documented in this encounter Miscellaneous Notes Addendum Note - Lesia Silva M.D., Ph.D. - 01/15/2021 9:30 AM CDT Encounter addended by: Lesia Silva M.D., Ph.D. on: 01/15/2021 4:57 PM Actions taken: Clinical Note Signed, Cosign clinical note, Letter saved documented in this encounter Plan of Treatment Upcoming Encounters Date Type Specialty Care Team Description 06/22/2022 [facility] [address] [place] [phone] (Mj rk) 06/22/2022 [facility] .[facility]S. [address] [place] [phone] (Mj rk) 06/29/2022 Lab Laboratory [facility] AP RN, C.N.P., M.S. [address] [place] [phone] (Mj rk) 06/29/2022 [facility] [address] [place] [phone] (Mj rk) Scheduled Orders Name Type Priority Associated Diagnoses Order S chedule Prior Auth Rad Tx Radiation Oncology Routine Malignant Neoplas m Of Expected: Pancreas (HCC) 01/15/2021, Expires: 2023 Scheduled Referrals Name Type Priority Associated Order Schedule Diagnoses Radiation Oncology Outpatient Referral Routine Malignant Neopl asm Once for 1 - GI consult Of Pancreas (HCC) Occurrence s starting (clinic) 01/15/2021 unti l 01/15/2021 Radiation Oncology Outpatient Referral Routine Malignant Neopl asm Expected: 01/15/2021 - GI consult Of Pancreas (HCC) (Approxima te), (clinic) Expires: 2023 documented as of this encounter Results DX Hand Left 2 [...] Lesia Silva M.D., Ph.D. IMG DIAGNOSTIC IMAGING [facility] Initial Rad Onc Treatment Planning CT Simulation (01/15/2021 12:08 PM CDT) Specimen (Source) Anatomical Location Collection Method / Collectio n Time Received Time / Laterality Volume Narrative SALES ISAIAS - 01/15/2021 12:08 PM CDT Lesia Silva M.D., Ph.D. ? 01/15/2021 ??2:15 PM Initial Rad Onc Treatment Planning CT Si mulation Date/Time: 01/15/2021 12:08 PM Performed by: Ricardo, Lesia, M.D., Ph.D. Authorized by: Lesia Silva M.D., Ph.D. Lesia Silva M.D., Ph.D. RADIATION ONCOLOGY ORDERABLE S Performing Organization Address City/State/ZIP Code [facility]on [facility] documented in this encounter Visit Diagnoses Diagnosis Loose Body Left Wrist - Primary Malignant Neoplasm Of Pancreas (HCC) Malignant Neoplasm Of Pancreas (HCC) Loose Body Left Wrist documented in this encounter Administered Medications Inactive Administered Medications - up to 3 most recent administrations Medication Order MAR Action Action Date Dose Rate Site lidocaine-prilocaine 2.5-2.5 Given 01/15/2021 10:26 AM 1 applica tion % cream 1 application (EMLA) CDT 1 application, topical, Once, On Mon01/15/21 at 1030, For 1 dose documented in this encounter Care Teams Abstracter Relationship Specialty Start Date End Date Elsewhere, Pcp PCP - General Family Medicine 08/12/20 documented as of this encounter
--- OUTSIDE RECORDS SUMMARY | 2022-06-18 16:16 | XMS_ITS | Encounter Summary ---
:1965 Author Organization [facility] Address [address] [place] [address] Care Team Providers Name Role Phone Elsewhere, [...] How often do you attend yarsanism or taoist services? 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 [address] [place] [phone] (Wo jayne) 06/22/2022 [facility]fusion Oncology [place] APRN, Remy.N .P., M.S. [address] [place] [phone] (Wo rk) 06/29/2022 Lab Laboratory Medicine Maria Del Rosario Gomez AP RN, C.N.P., M.S. [address] [place] [address] [phone] (Wo rk) 06/29/2022 Infusion Oncology Maria Del Rosario Gomez APRN, C.N .Pamela., M.S. [address] [place] [address] [phone] (Wo rk) documented as of this encounter Procedures Procedure Name Priority Date/Time Associated Diagnosis Comme nts GI AND GENERAL Routine 01/12/2021 9:55 AM Results for this SURGERY IMAGE EXAM CDT procedure are in the results section. documented in this encounter Results UPPER EUS-GI And General Surgery Image Exam (01/12/2021 9:55 AM CDT) Specimen (Source) Anatomical Collection Method Collection Time Re ceived Time Location / / Volume Laterality 01/12/2021 9:51 AM CDT Narrative [facility] - 01/12/2021 11:14 AM CDT This order has been created [...] on filedocumented in this encounter Care Teams Packing Machine Can Feeder Relationship Specialty Start Date End Date Elsewhere, Pcp PCP - General Family Medicine 08/12/20 documented as of this encounter
--- OUTSIDE RECORDS SUMMARY | 2022-06-18 16:16 | XMS_ITS | Encounter Summary ---
:1965 Author Organization [facility] Address [address] [place] [address] Care Team Providers Name Role Phone Elsewhere, Pcp Primary Care Provider Unavailable Reason for Visit Reason Comments Post Hospital Follow-up Encounter Details Date Type Department Care Team Description 01/01/2021 Clinical Communication Department of [facility] Oncology in December Chanelle Pereira, Follow-up [place] [address] [facility] [address] [place] [phone] Social History Tobacco Use Types Packs/Day Years [...] How often do you attend yazdanism or temple services? 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 [address] [place] [address] [phone] (Wo rk) 06/22/2022 Infusion Oncology Maria Del Rosario Gomez APRN, C.N .P., M.S. [address] [place] [place] [address] [phone] (Wo rk) 06/29/2022 Lab Laboratory Medicine Maria Del Rosario Gomez AP RN, C.N.P., M.S. [address] [place] [address] [phone] (Wo rk) 06/29/2022 Infusion Oncology Maria Del Rosario Gomez APRN, C.N .P., M.S. [address] [place] [address] [phone] (Wo rk) documented as of this encounter Visit Diagnoses Diagnosis Malignant Neoplasm Of Pancreas (HCC) - P rimary documented in this encounter Care Teams Senior Product Development Scientist Relationship Specialty Start Date End Date Elsewhere, Pcp PCP - General Family Medicine 08/12/20 documented as of this encounter
--- OUTSIDE RECORDS SUMMARY | 2022-06-18 16:16 | XMS_ITS | Encounter Summary ---
:1965 Author Organization [facility] Address [address] [place] [address] Care Team Providers Name Role Phone Elsewhere, Pcp Primary Care Provider Unavailable Encounter Details Date Type Department Care Team Description 01/01/2021 Orders Only Department of Palliative [facility] R, Care in [place], raffi Roca, M.S. [address] [facility] [address] [place] [address] [place], [place] [phone] (Wo rk) Social History Tobacco Use Types [...] How often do you attend taoist or restorationist services? 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 [address] [place] [phone] (Wo rk) 06/22/2022 Infusion Oncology Maria Del Rosario Gomez APRN, C.N .P., M.S. [address] [place] [phone] (Wo rk) 06/29/2022 Lab Laboratory Medicine Maria Del Rosario Gomez AP RN, C.N.P., M.S. [address] [place] [phone] (Wo rk) 06/29/2022 Infusion Oncology Maria Del Rosario Gomez APRN, C.N .P., M.S. [address] [place] [phone] (Wo rk) documented as of this encounter Visit Diagnoses Not on filedocumented in this encounter Additional Health Concerns Infection Onset Date Last Indicated Resolved Time COVID19 Pending 01/11/2021 01/11/2021 01/11/2021 6:20 PM CDT COVID19 Pending 01/15/2021 01/15/2021 01/15/2021 6:06 PM CDT documented as of this encounter Care Teams Cloth Shrinker Relationship Specialty Start Date End Date Elsewhere, Pcp PCP - General Family Medicine 08/12/20 documented as of this encounter
--- OUTSIDE RECORDS SUMMARY | 2022-06-18 16:16 | XMS_ITS | Encounter Summary ---
:1965 Author Organization [facility] Address [address] [place] [address] Care Team Providers Name Role Phone Elsewhere, Pcp Primary Care Provider Unavailable Reason for Visit Reason Comments 01/11 return visit Encounter Details Date Type Department Care Team Description 01/01/2021 Clinical Communication Department of [place], 01/11 return visit [place] [address] [facility] [address] [place] [phone] Social History Tobacco Use Types Packs/Day Years [...] How often do you attend evangelical or congregational services? Never 01/15/2021 Do you [...] at Date Recorded Male 08/18/2021 2:55 PM [employer] documented as of this encounter Plan of Treatment Upcoming Encounters Date Type Specialty Care Team Description 06/22/2022 Lab Laboratory Medicine Maria Del Rosario Gomez AP RN, C.N.P., M.S. [address] [place] [phone] (Wo rk) 06/22/2022 Infusion Oncology Maria Del Rosario Gomez APRN, C.N .P., M.S. [address] [place] [address] [phone] (Wo rk) 06/29/2022 Lab Laboratory Medicine Maria Del Rosario Gomez AP RN, C.N.P., M.S. [address] [place] [address] [phone] (Wo rk) 06/29/2022 Infusion Oncology Maria Del Rosario Gomez APRN, C.N .P., M.S. [address] [place] [address] [phone] (Wo rk) documented as of this encounter Visit Diagnoses Not on filedocumented in this encounter Care Teams Rink Rat Relationship Specialty Start Date End Date Elsewhere, Pcp PCP - General Family Medicine 08/12/20 documented as of this encounter
--- OUTSIDE RECORDS SUMMARY | 2022-06-18 16:16 | XMS_ITS | Encounter Summary ---
:1965 Author Organization [facility] Address [address] [place] [address] Care Team Providers Name Role Phone Elsewhere, Pcp Primary Care Provider Unavailable Encounter Details Date Type Department Care Team Description 01/03/2021 Orders Only Department of Palliative [place], [facility] R, Care in [place], raffi Roca, M.S. [address] [facility] [address] [place] [address] [place], [place] [phone] (Wo rk) Social History Tobacco Use Types [...] How often do you attend episcopalian or yazidi services? 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 [address] [place] [phone] (Wo rk) 06/22/2022 Infusion Oncology Maria Del Rosario Gomez APRN, C.N .P., M.S. [address] [place] [address] [phone] (Wo rk) 06/29/2022 Lab Laboratory Medicine Maria Del Rosario Gomez AP RN, C.N.P., M.S. [address] [place] [address] [phone] (Wo rk) 06/29/2022 Infusion Oncology Maria Del Rosario Gomez APRN, C.N .P., M.S. 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
--- OUTSIDE RECORDS SUMMARY | 2022-06-18 16:16 | XMS_ITS | Encounter Summary ---
:1965 Author Organization [facility] Address [address] [place] [address] Care Team Providers Name Role Phone Elsewhere, Pcp Primary Care Provider Unavailable Reason for Referral Outpatient (Routine) - Closed Specialty Diagnoses / Procedures Referred By Contact Refer red To Contact Palliative Medicine Diagnoses Pain Cancer Associated Casandra Julio M.D. [facility] Referral ID Status Reason Start Date Expiration Date Visits Requ ested Visits Authorized [id number] Closed 01/01/2021 01/01/2022 1 1 Scheduling Instructions Likely to D/C 01/01 or 01/02 Reason for Visit Auth/Cert Specialty Diagnoses / Procedures Referred By Contact Refer red To Contact Diagnoses Pain Cancer Associated Procedures G89.3 (ICD-10-CM) - Pain Cancer Associated Referral ID Status Reason Start Date Expiration Date Visits Requ ested Visits Authorized [id number] 1 1 Encounter Details Date Type Department Care Team Description 12/31/2020 - Hospital Encounter [facility] Yamileth Hermosillo B.M.B.Ch. [address] [place] [id number] Pain Cancer 01/02/2021 Hospital, Alyssa Valenzuela M.D., M.S. [address] [place] [address] Associated (Primary [facility], Bhavin Dx) Building, Fourth Floor [address] [place] [address] Social History Tobacco Use Types Packs/Day Years [...] How often do you attend hinduism or advent services? 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 - 01/02/2021 9:53 AM CDT DISCHARGE SUMMARY BRIEF OVERVIEW Hospital: [facility] Discharge Provider: Alyssa Gonzalez M.D. Primary Team: [facility] Palliative Medicine [facility] ([facility]) Primary Care Providers: Elsewhere, Pcp (General) No address on file Primary Care Provider Phone Number: None Primary Care Provider Fax Number: None Other Providers: Dr. Murray, Dr. Travis Admission Date: 12/31/2020 Discharge Date: 01/02/2021 PRINCIPAL DIAGNOSIS Pain Cancer Associated SECONDARY DIAGNOSES Principal Problem: Pain Cancer Associated Active Problems: Gastroesophageal Reflux Disease NOS Malignant Neoplasm Of Pancreas (HCC) Pseudocyst Pancreas (HCC) Pain Back Resolved Problems: * No resolved hospital problems. * DISCHARGE DISPOSITION Home or Self Care [1] ACTIVE ISSUES REQUIRING FOLLOW UP RECOMMENDATIONS FOR PATIENT: - Please take all medications as directed. - For followup questions or issues after discharge, please call: -Monday-Monday 8-5: Palliative care team phone: [phone] -After hours/weekends: [phone] (ask for on-call inpatient palliative care provider) - Please attend your next Palliative Care Clinic appointment on 01/11/2021 (For specific issues related to scheduling or rescheduling of appointments, please call [phone]). None OUTPATIENT FOLLOW UP Scheduled Appointments 01/11/2021 8:20 AM LAB MISC MED SCREEN LUPILLO 06 W Laboratory Medicine 01/11/2021 3:00 PM PAL RN NURSE 02 VAIBHAV; PAL PROVIDER 01 VAIBHAV Palliative Medicine 01/12/2021 10:15 AM RM 206 EUS ROGO 02 GI Gastroenterology and Hepatology 01/15/2021 9:30 AM Lesia Silva M.D., Ph.D. Radiation Oncology For appointment details refer to your Patient Appointment Guide. TEST RESULTS PENDING AT DISCHARGE Pending Labs None DETAILS OF HOSPITAL STAY REASON FOR ADMISSION Pain Cancer Associated HOSPITAL COURSE Mr. Campbell is a 55 year-old man from [place], [place] with pancreatic adenocarcinoma diagnosed 07/2020 complicated??by??malignant biliary stenosis requiring stents, ERCP-induced necrotizing pancreatitis, and infected nonocclusive portal vein thrombosis who was admitted 12/31 with increasing mid- lower central back pain. His PRN opioid was rotated from oxycodone 5mg PO to hydromorphone 4mg PO with significant improvement in his pain. He was walking around the unit comfortably the day after admission. With the increase in pain, a thoracic/lumbar MRI was obtained that did not show any evidence of spine metastases, fractures, or neuroforaminal narrowing to provide an explanation of his pain. Repeat LFTs were ordered given his history of biliary stent occlusion; these were within normal limits. Reasonfor focalized back pain remains unclear, although no evidence of severe concerning etiology such as cord compression or a new fracture. We have follow-up scheduled in our clinic on 01/11. With regards to his abdominal pain, per oncology, plan has been for an endoscopic celiac plexus block for his abdominal pain since percutaneous is limited secondary to his pancreatiits. As his pain wasimproved and he had plans for Monday, this was not completed prior to discharge. An EUS order had been placed as an outpatient, and we confirmed the EUS has been scheduled for 01/12. Dr. Murray and Dr. Travis have been notified. CONSULTS ORDERED DURING THIS ADMISSION IP CONSULT TO DIETITIAN Pertinent Diagnostic Results: Radiology: MRI: No evidence of spine metastases, fractures, or cord compression CONDITION AT DISCHARGE stable Discharge instructions were provided to the patient and caregiver(s). documented in this encounter Discharge Instructions Discharge InstructionsKInes john - 01/01/2021 7:09 AM CDT You were discharged from the [facility] ([facility]) Service. Please identify this service name if you call with questions after hospitalization. [facility] experts agree: You should get a COVID-19 vaccine as soon as it's available to you. ??? The vaccines that we???re recommending have been approved for safe use. ??? [facility] will continue to coordinate with state and local governments on future vaccine distribution phases. o If your primary care provider is at [facility] and you plan to receive your vaccination at [facility], please ensure that you have activated your Patient Portal at [email or web address] to allow [employer] to communicate to you about the scheduling process. ??? Practice social distancing, wear a mask properly outside your home, wash your hands frequently, and follow your state and local recommendations until the spread has stopped. ??? The vaccine may not be recommended to those with certain health conditions. Talk to your health care provider if you have questions about receiving the vaccine. documented in this encounter Medications at Time [...] a 8.6-50 mg per tablet day. acetaminophen (TYLENOL) Take 2 tablets (1,000 0 0 01/01/2021 10/25/2021 500 mg tablet mg total) by mouth 3 (three) times [...] by mouth every morning before breakfast. HYDROmorphone (DILAUDID) Take 1 tablet (4 mg 75 tablet 0 01/03/2021 4 mg tabletIndications: total) by mouth every Chronic Pain/Nonacute 3 (three) hours as Pain needed for pain Indication: Chronic Pain/Nonacute Pain. lidocaine-prilocaine APPLY TOPICALLY 0 021 01/18/2021 (EMLA) 2.5-2.5 % cream NEEDED (30 MINUTES PRIOR TO PORT ACCESS) ondansetron (ZOFRAN) 8 Take 1 tablet (8 mg 20 tablet 0 01/202102/24/2021 mg tablet total) by mouth every 8 (eight) hours as needed for nausea or vomiting. documented as of this encounter Progress Notes Rachel Vega R.N. - 01/01/2021 4:31 PM CDT Palliative Care Introduction I introduced [...] patient. Chief Complaint/Purpose of Visit Patient was provided patient education. Impression/Report/Plan Please see After Visit Summary for specific patient instructions. Patient Education: Education provided to patient For details involving the learning needs assessment, teaching methods used, and evaluation of learning, please refer to the patient education flowsheet. Education topics covered in this visit include: Constipation , Medication Safety and Opioid Medication Standard Opioid education included: Medication specific education for Hydromorphone Safe Management of Controlled Substances [id number] Important Information About Opioid Medication [id number] (page 7 opioid withdrawal) Treating Constipation Caused by Pain Medications [id number] Opioid Storage and Safety [id number] Nina Otto RDN, LD - 01/01/2021 11:57 AM CDT Clinical Nutrition: Initial Assessment RECOMMENDATIONS REQUIRING MD/PROVIDER ORDER Multivitamin with minerals if this will not interfere with treatment For questions about patient's nutritional care please contact pager [phone] on weekdays or [phone] on weekends/holidays. NUTRITION ASSESSMENT: Mr. Campbell is a 55 y.o. male with localized pancreas cancer and a history of pancreatitis and peripancreatic abscess. He is admitted for worsening back pain. Requested to see patient for evaluation of: positive nursing baseline nutrition screen with a MST score of 2 or greater. MALNUTRITION CRITERIA: Nutrition focused physical exam completed by this sports writer today and revealed the following: Recent Oral Intake Average estimated Intake: Less than 75% for 3 or more months Weight Changes Weight Loss: >10% in 6 months (19.4% over 4-5 months) Body Fat Body Fat: Moderate Loss Orbital Region: Slightly dark circles, somewhat hollow look Upper Arm Region (Triceps/biceps): Some depth of pinch, but not ample Muscle Mass Muscle Mass: Moderate Loss Temporal Region (Temporalis Muscle): Hollowing scooping, depression Clavicle Bone Region (Pectoralis Major, Deltoid, Trapezious Muscles: Protruding, prominent bone Clavicle and Acromion Bone Region (Deltoid Muscle) : Acromion process may slightly protrude Dorsal Hand (Interosseous Muscle): Muscle bulges or is flat Posterior Calf Region (Gastrocnemious Muscle) : Well-developed bulb of muscle Nutritional Status: Severe Malnutrition Malnutrition in the Context of: Chronic Illness Current nutrition orders: Current Diet Adult Diet Regular starting at 12/31 1802 Current Nutrition (since admission): Patient reported eating scrambled eggs, 2 slices of shane and achocolate milk at breakfast today. Patient dislikes all oral nutritional supplements but is open to shakes and smoothies. Provided shake and smoothie list. Nutrition history: Patient reports eating 3 meals a day but is eating less than normal stating he can't eat all that is on his plate. He has not been consuming any nutritional supplements or shakes/smoothies at home. He dislikes nutritional supplements. He snacks on Ritz peanut butter crackers and hasan occasional Dr Pepper after letting fizz dissipate. ANTHROPOMETRICS: Height: 173.7 cm Admission Weight: 66.4 kg (12/31/2020) Mcgregor Body Weight (Calculated) : 71.1 kg BMI (Calculated): 22 kg/m?? Weight History: 08/12/20 82.4 kg 10/01/20 71.2 kg 11/26/20 68.5 kg 12/31/20 66.4 kg Weight is down 19.4% since 08/12/21 per EMR. Patient reports a 50 lb weight loss from UBW of 200 lb. ESTIMATED NEEDS: Total Calorie Needs: 1545-4400 calories/day Method to Estimate Energy Needs: [place] (Basal + 20%) Weight Used for Equation Calculations: 66.4 kg Total Protein Needs: 80 - 100 grams/day Method to Estimate Protein Needs (g/kg): 1.2 - 1.5 gm/kg Weight Used to Calculate Protein Needs (Kg): 66.4 kg NUTRITION DIAGNOSIS: Malnutrition (undernutrition) related to reduced appetite, abdominal pain as evidenced by a 19.4% weight loss over the past 4-5 months with signs of fat and muscle wasting NUTRITION PLAN/MONITORING/EVALUATION: Interventions: Increase nutrient intake with small, frequent meals and/or snacks, Vitamin and mineral supplements, Provide counseling strategies to apply nutrition knowledge (Patient agreed to shakes and smoothies to increase caloric intake.). Monitoring: Meals/Supplement Intake, Weight Status, Pertinent Labs . . Casandra Julio M.D. - 01/01/2021 11:53 AM CDT [facility] Inpatient Palliative Care Service (IPCS) Progress Note Patient: Adam Campbell; 55 y.o.male Location: [id number] Date of Service: 01/01/2021 Time of Visit: 11:54 AM CDT Hospital Admission Date: 12/31/2020 5:33 PM Hospital Day: 1 Primary Ic Designer Custom: Alyssa Gonzalez M.* Primary Care Provider: ELSEWHERE, PCP SUBJECTIVE Subjective Mr.??Adam Campbell??is a 55 y.o.??male??from [place], [place] with medical comorbidities significant for??pancreatic adenocarcinoma (original diagnosis in 07/2020) complicated??by??malignant biliary stenosis requiring stents, ERCP pancreatitis, and infected nonocclusive portal vein thrombosis. He has had 6 hospitalizations since his diagnosis due to complications of his underlying malignancy. He was most recently discharged on 12/12/20 after being hospitalized for worsening abdominal pain and was found to have a biliary stent occlusion. He was admitted to the GI service at that time and underwent ERCP on 12/11, which revealed one visibly occluded biliary metal stent. He was treated with balloon dilation and placement of a plastic stent with resolution of symptoms and improvement of LFT's. He presented to his outpatient oncologist today (12/31 - Dr. Murray) with significant worsening of his back pain. He was admitted to the Inpatient Palliative Care Service (IPCS) for ongoing medical and symptom management. The team met with Adam penaloza. He was in no acute distress. He was out walking around the unit getting exercise. He says his back feels much better. He describes midline tenderness worse with palpation of the right side vertebral bodies around L1-L2. This radiates over also to the right flank. He is tolerating hydromorphone well and rotation to hydromorphone 4 mg oral has greatly improved his pain and now he endorses that it has essentially resolved unless deeply palpated. No side effects noted.No other symptoms at this time. No emergent overnight events. He is hopeful for discharge by tomorrow afternoon to attend a family libertarian. OBJECTIVE Objective Physical Exam: VS: BP 107/75 (BP Location: Right arm;Upper, Patient Position: Semi-recumbent) Pulse 85 Temp 36.6 ??C (Oral) Resp 14 Ht 173.7 cm Wt 66.4 kg SpO2 100% BMI 22.01 kg/m?? I&O: I/O last 3 completed shifts: In: 120 [P.O.:120] Out: - No intake/output data recorded. General: Sitting in bed no acute distress HEENT: Moist mucous membranes, no scleral icterus. CV: Regular rate Respiratory: Unlabored respirations. Abdomen: Non-tender, non-distended. Back: point tenderness around lateral right aspect of L1-L2 region to palpation Extremities: Warm, well perfused. Musculoskeletal: Moves all Skin: Warm, dry, intact. Neurologic: No gross sensory or motor deficits. Psychiatric: RASS 0 Medications/Diagnostics: Medications and allergies reviewed. Previous lab and radiology results reviewed. ASSESSMENT / PLAN Impression/Report/Plan .??Adam Campbell??is a 55 y.o.??male??from [place], [place] with medical comorbidities significant for??pancreatic adenocarcinoma (original diagnosis in 07/2020) complicated??by??malignant biliary stenosis requiring stents, ERCP pancreatitis, and infected nonocclusive portal vein thrombosis. He has had 6 hospitalizations since his diagnosis due to complications of his underlying malignancy. He was most recently discharged on 12/12/20 after being hospitalized for worsening abdominal pain and was found to have a biliary stent occlusion. He was admitted to the GI service at that time and underwent ERCP on 12/11, which revealed one visibly occluded biliary metal stent. He was treated with balloon dilation and placement of a plastic stent with resolution of symptoms and improvement of LFT's. He presented to his outpatient oncologist today (12/31 - Dr. Murray) with significant worsening of his back pain. He was admitted to the Inpatient Palliative Care Service (IPCS) for ongoing medical and symptom management. ?? #1 Gastroesophageal Reflux Disease NOS #2 Malignant Neoplasm Of Pancreas (HCC) #3 Pseudocyst Pancreas (HCC) #4 Pain Cancer Associated #5 Pain Back Thankfully, Mr. Campbell is doing much better. He is in minimal pain after opioid rotation to hydromorphone. He has a family event tomorrow afternoon which he is fully dedicated to attending. He has been able to ambulate frequently, tolerate oral intake, and remain on room air thus far during his admission. We will review his MRI resilts and then re-eval if any steps or medication adjustments need to happen prior to discharge to home with self-care. Plan - Follow up MRI lumbar and thoracic spine with IV contrast performed 01/01 afternoon - Dr. Murray (Oncologist) ordered EUS; however this is not able to be completed during this admission. Outpatient follow up eval scheduled for January 12, 2021. ?? PAIN: - Continue hydromorphone 4 mg po every 3 hours prn pain (first line) - Continue hydromorphone 0.8 mg IV every 1 hour prn pain (second line) - Continue tylenol 1000 mg po scheduled TID - Start diclofenac gel topical scheduled 3 times daily - Start lidoderm patch Q12 hours prn pain - Consider initiation of dexamethasone for bone pain if evidence of metastatic disease on MRI vs neuropathic agent if looking for non-opioid adjuvant therapy ?? CONSTIPATION: - Continue with miralax 17 grams po BID. - Continue with senokot-s 3 tabs po BID. - Continue dulcolax suppository 10 mg pr daily prn constipation. ?? NAUSEA: - Continue with zofran 4 mg po every 8 hours prn N/V (first line) - Continue zofran 4 mg IV every 8 hours prn N/V (if not tolerating PO) - Continue zyprexa 5 mg po TID prn N/V (second line) ?? ANXIETY/INSOMNIA: - Start zyprexa 5 mg po TID prn anxiety, insomnia. ?? Fluids: Encourage po intake Electrolytes: Replete prn Nutrition/Diet: Regular Lines/Drains: IVAD Prophylaxis: Lovenox 40 mg SQ daily Code Status: Full Code Healthcare Surrogate(s): , Shaniqua Campbell Advance Care Planning Documentation: None on file Anticipated Disposition: Home potentially Monday or Monday morning Please do not hesitate to call the Inpatient Palliative Care Service (IPCS) pager at [phone] for any questions. Casandra Julio M.D. [facility] Pager: [phone] Alyssa Gonzalez M.D., M.S. - 01/01/2021 11:23 AM CDT [facility] Palliative Medicine Fellow Physician Attestation Mr. Campbell is a 55 year-old man from [place], [place] with pancreatic adenocarcinoma??diagnosed 07/2020??complicated??by??malignant biliary stenosis requiring stents, ERCP-induced necrotizing pancreatitis, and infected nonocclusive portal vein thrombosis admitted 12/31 with increasing mid-lower central back pain. This morning, he reports his pain has been much improved with rotation of his PRN from oxycodone 5mg(7.5 OME/dose) to hydromorphone 4mg (16 OME/dose). He was walking around the unit this morning. MRI thoracic/lumbar spine scheduled for this afternoon. - Continue hydromorphone 4mg PO PRN - As pain has been controlled thus far today with relative few PRN medications, will hold off on long-acting opioid initiation at this time - Follow-up thoracic/lumbar MRI scheduled for this afternoon - Follow-up on outpatient EUS scheduling for endoscopic celiac plexus block - Arrange for outpatient Palliative Medicine clinic consult Severe Malnutrition The patient meets the ASPEN Criteria of malnutrition based on: ?? Average estimated Intake: Less than 75% for 3 or more months ?? Weight Loss: >10% in 6 months ?? Body Fat: Moderate Loss ?? Muscle Mass: Moderate Loss This is in the context of Chronic Illness. Malnutrition Present Upon Admission: Yes Agree with Registered Dietitian's assessment and treatment plan: Interventions: Increase nutrient intake with small, frequent meals and/or snacks, Vitamin and mineral supplements, Provide counseling strategies to apply nutrition knowledge (Patient agreed to shakes and smoothies to increase caloric intake.) I have seen and evaluated the patient along with the fellow physician, Dr. Casandra Julio. I have reviewed the pertinent history. I discussed the impression and plan with the fellow. I agree with the history, examination, impression, and recommendations as documented in today's note from the fellow except as documented. Alyssa Gonzalez M.D., M.S. Nutrition Consultant Division of General Internal Medicine [facility] documented in this encounter H&P Notes Pablo Lianne GUERO Flores, CRiazNRiazP. - 12/31/2020 6:35 PM CDT [facility] Inpatient Palliative Care Service (IPCS) Admission History and Physical Patient: Adam Campbell; 55 y.o.male Location: [address] [place] [address] Date of Service: 12/31/2020 Time of Visit: 6:35 PM CDT Hospital Admission Date: 12/31/2020 5:33 PM Hospital Day: 0 Primary Ic Designer Custom: Yamileth Hermosillo B.M.B.Ch. Primary Care Provider: ELSEWHERE, PCP SUBJECTIVE Reason for Admission: Pain Cancer Associated History of Present Illness: Mr.??Adam Campbell??is a 55 y.o.??male??from [place], [place] with medical comorbidities significant for??pancreatic adenocarcinoma (original diagnosis in 07/2020) complicated??by??malignant biliary stenosis requiring stents, ERCP pancreatitis, and infected nonocclusive portal vein thrombosis. He has had 6 hospitalizations since his diagnosis due to complications of his malignancy. He was most recently discharged on 12/12/20 after being hospitalized for worsening abdominal pain and was found to have a biliary stent occlusion. He was admitted to the GI service at that time and underwent ERCP on 12/11, which revealed one visibly occluded biliary metal stent. He was treated with balloon dilation and placement of a plastic stent with resolution of symptoms and improvement of his LFT's. Briefly, his previous hospitalizations have been the result of complications, including pseudocyst and ERCP pancreatitis, for which he has had multiple necrosectomies. 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 This was treated with ertapenem until 11/29/2020. He has had multiple stents placed. His previous most recent ERCP was 11/25. During that procedure he had a stent removed and 3 additional stents placed. The cavity contained a small amount of pus and decreased necrosis. ?? He presented to his local ED 2 days ago due to worsening pain. CT imaging was reportedly obtained atthat time of his abdomen/pelvis (unable to find in review of our EHR). He was given toradol, which helped his pain temporarily. Today, he presented to the clinic to be evaluated by Dr. Reji Travis (hepatobiliary and pancreas surgery), who informed him that he would not be a candidate for any further surgical resection. He recommended further discussing his treatment options with Dr. Murray (oncology), as well as considering the option of radiation therapy. He was evaluated by Dr. Murray today and was found to have significant pain. He was directly admitted to our Inpatient Palliative Care Service for symptom management. On arrival to the unit, Mr. Campbell is sitting on the edge of bed and does not appear to be in acute distress. He reports his pain is to his thoracic/lumbar spine. He rates it as an 8/10 and describes itas being hit with a baseball bat to the back. The pain is constant. He has been utilizing prn oxycodone (10 mg 3- 4 times daily), with little relief. He reports the pain has gradually worsened over the last 2 weeks. He denies abdominal pain or pressure, nausea, vomiting, fever or chills. He denies any numbness, tingling, or burning pain. The pain does not radiate, but is present in his right back also. He denies weakness or any falls. He denies any incontinence and is voiding without difficulty. LastBM was yesterday. He denies dyspnea or cough. His appetite is good. His energy level is good. He is able to ambulate frequently and uses a stationary bike for exercise. He reports having difficulty with sleeping due to the pain. He is hoping to get his pain managed and get home by Monday, as it is his niece's 18th birthday. She has spina bifida and he really wants to be able to celebrate with the family. Palliative Medicine Symptom Assessment: ?? Pain: Mid-thoracic/lumbar spine that is constant and described as being hit with a baseball bat, 8/10. Oxycodone has not been effective. Pain has gradually worsened over the last 2 weeks. ?? Dyspnea: Denies ?? Bowels: Denies diarrhea or constipation. Last BM 12/30. ?? Nausea/Vomiting: Denies. ?? Sleep: Is having difficulty with sleep due to the pain. ?? Appetite: Has a good appetite. ?? Mood: Intermittently tearful, appropriately, otherwise pleasant and cooperative. I have reviewed the patient's record in the Prescription Monitoring Program (SOFTWARE QUALITY ASSURANCE ENGINEER) with no unexpectedfindings. The following portions of the patient's history were reviewed and updated as appropriate: Current Medications, Medical History, Surgical History, Family History and Social History Admission Medications: Medications Scheduled Medication Ordered Dose/Rate, Route, Frequency Last Action acetaminophen tablet 1,000 mg (TYLENOL) 1,000 mg, oral, TID Ordered enoxaparin injection 40 mg (LOVENOX) 40 mg, SC, Q24H LACHELLE Ordered pantoprazole DR tablet 40 mg (PROTONIX) 40 mg, oral, Daily before breakfast Ordered polyethylene glycol powder packet 17 g (MIRALAX) 17 g, oral, BID Ordered sennosides-docusate sodium 8.6-50 mg per tablet 3 tablet (SENOKOT-S) 3 tablet, oral, BID Ordered sodium chloride 0.9 % injection 3 mL 3 mL, IV, Q12H LACHELLE Ordered PRN Medication Ordered Dose/Rate, Route, Frequency Last Action heparin flush 500 Units 500 Units, cath, During hospitalization Ordered HYDROmorphone (PF) injection 0.8 mg (DILAUDID) 0.8 mg, IV, Q1H PRN Ordered HYDROmorphone tablet 4 mg (DILAUDID) 4 mg, oral, Q3H PRN Ordered lidocaine-prilocaine 2.5-2.5 % cream (EMLA) No Dose/Rate, top, PRN Ordered OLANZapine tablet 5 mg (ZyPREXA) 5 mg, oral, TID PRN Ordered ondansetron (PF) injection 4 mg (ZOFRAN) 4 mg, IV, Q8H PRN Ordered ondansetron tablet 8 mg (ZOFRAN) 8 mg, oral, Q8H PRN Ordered sodium chloride 0.9 % injection 10 mL 10 mL, IV, During hospitalization Ordered sodium chloride 0.9 % injection 10 mL 10 mL, IV, PRN Ordered sodium chloride 0.9 % injection 3 mL 3 mL, IV, PRN Ordered Medical/Surgical/Family/Social/Spiritual History Formulation with 2 children and 3 grandchildren. 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 Advance Care Planning Documents None Code Status at Time of Admission Full Code Review of Systems Constitutional: Fever, Chills, Weight Loss, Anorexia, Fatigue/Malaise HEENT: Headaches, Dizziness, Change in Vision, Epistaxis, Bleeding gums, Mouth sores Respiratory: Dry Cough, Productive Cough, Shortness of breath/dyspnea, Pleuritic Chest Pain, Hemoptysis, Excess secretions Cardiovascular: Orthopnea, PND, ??Chest Pain, ?Palpitations, LE edema? GI: Dysphagia, Heartburn, Hiccups, Hematemesis, N/V, Diarrhea, Constipation, Abdominal pain, Melena,Hematochezia? : Dysuria, Hematuria, Incomplete Voiding, Frequency, Retention/Incontinence? Musculoskeletal: Bone pain (middle/low back), Joint pain/swelling, Muscle aches? Skin: Pruritis, Dry skin??, Rash Neurological: Drowsiness, Difficulty thinking/Memory Impairment, Paresthesias, Myoclonus? Psychiatric: Anxiety, Depressed mood, Irritability, Sadness, Hallucinations (visual/auditory)? The patient reports symptoms that are bold. All other systems have been reviewed and are negative.??? Palliative Functional Assessment PPS Ambulation Activity Level Self-Care Intake Consciousness 100% Full Normal Full Normal Full 90% Full Normal Full Normal Full 80% Full Normal with effort Full Normal/reduced Full 70% Reduced Unable to do normal job Full Normal/reduced Full 60% Reduced Unable to do hobbies/house work Occasional assistance Normal/reduced Full or Confusion 50% Mainly Sit/Lie Unable to do any work Considerable assistance Normal/reduced Full or Confusion 40% Mainly in Bed Unable to do most activity Mainly assistance Normal/reduced Full/drowsy, +/- confusion 30% Bedbound Unable to do any activity Total care Normal/reduced Full/drowsy, +/- confusion 20% Bedbound Unable to do any activity Total care Minimal/sips Full/drowsy, +/- confusion 10% Bedbound Unable to do any activity Total care Mouth care only Drowsy/coma, +/- confusion 0% - - - - Palliative Performance Scale. Patient's current PPS is in bold. Adapted from: Mariusz Kramer et al. Palliative performance scale (PPS): a new tool. Journal of Palliative Care. 1996;12(1):5-11. Александр Kramer et al. Using the palliative performance scale to provide meaningful survival estimates. Journal of Pain and Symptom Management. 2009;38(1):134-44. OBJECTIVE Vital Signs, In/Out, Physical Exam Temperature: [36.2 ??C] 36.2 ??C Resp Rate: [16] 16 Blood Pressure: (114)/(82) 114/82 SpO2: [100 %] 100 % Height: [173.7 cm] 173.7 cm Weight: [66.4 kg] 66.4 kg BSA (Calculated - sq m): [1.79 sq meters] 1.79 sq meters BMI (Calculated): [22 kg/m??] 22 kg/m?? Pulse Rate: [75] 75 No intake/output data recorded. No intake/output data recorded. General: Alert male, sitting on edge of bed in no acute distress. HEENT: Moist mucous membranes, no scleral icterus. CV: Regular rate and rhythm. 2/6 systolic murmur auscultated at apex. No gallop, or rub. No lower extremity edema. Respiratory: Unlabored respirations. No conversational dyspnea. Lung sounds are clear to auscultation throughout. Abdomen: Soft, non-tender, non-distended. Active bowel sounds. Extremities: Warm, well perfused. 2+ radial and dorsalis pedis pulses. Musculoskeletal: Moves all extremities. Gait is steady. Skin: Warm, dry, intact. No rash, lesion, or ecchymoses. Neurologic: No gross sensory or motor deficits. No myoclonus. Psychiatric: RASS 0. Pleasant and cooperative. Intermittently tearful, appropriately. Diagnostics I have reviewed recent labs, imaging, and other diagnostics. Relevant results include hemoglobin of 10.6 (baseline hemoglobin of 10), WBC of 6.1. BMP revealed stable electrolytes and kidney function (baseline creatinine of 0.8). LFT's stable as below (improved from 12/12/20). Lab Results Component Value Date ALT 15 12/31/2020 AST 16 12/31/2020 ALKPHOS 144 (H) 12/31/2020 BILITOT 0.4 12/31/[address] abdomen/pelvis a couple of days ago at his local hospital that was reportedlystable. We do not have access to those records unfortunately. ASSESSMENT / PLAN Impression/Report/Plan Mr.??Adam Campbell??is a 55 y.o.??male??from [place], [place] with medical comorbidities significant for??pancreatic adenocarcinoma (original diagnosis in 07/2020) complicated??by??malignant biliary stenosis requiring stents, ERCP pancreatitis, and infected nonocclusive portal vein thrombosis. He has had 6 hospitalizations since his diagnosis due to complications of his underlying malignancy. He was most recently discharged on 12/12/20 after being hospitalized for worsening abdominal pain and was found to have a biliary stent occlusion. He was admitted to the GI service at that time and underwent ERCP on 12/11, which revealed one visibly occluded biliary metal stent. He was treated with balloon dilation and placement of a plastic stent with resolution of symptoms and improvement of LFT's. He presented to his outpatient oncologist today (12/31 - Dr. Murray) with significant worsening of his back pain. He was admitted to the Inpatient Palliative Care Service (IPCS) for ongoing medical and symptom management. #1 Malignant Neoplasm Of Pancreas (HCC) #2 Pseudocyst Pancreas (HCC) #3 Gastroesophageal Reflux Disease NOS #4 Pain Cancer Associated #5 Pain Back Stable. However, he has required multiple hospitalizations and has had multiple complications since his diagnosis of pancreatic cancer in 07/2020. Today, he met with the hepatobiliary surgeon (Dr. Travis) and was told there are no further surgical interventions available for his underlying cancer. He recommended further discussing treatment options with his oncologist (Dr. Murray) regarding whether or nothe was a candidate for systemic or radiation therapy. During his visit with Dr. Murray today, he was found to have significant pain that was not responsive tohis normal prn oxycodone (typically takes 10 mg 3-4 times daily). He was directly admitted for further pain control. Upon further investigation, he has mid thoracic and lumbar back pain. Fortunately, his PET scan from08/2020 did not indicate any metastatic disease or bone involvement. However, given his fairly acuteonset of worsening back pain that has progressively worsened over the last 2 weeks and is no longer r esponsive to his oxycodone, we will plan to proceed with MRI imaging of his thoracic and lumbar spine to rule out bone metastases. He reportedly had a CT abdomen/pelvis at his local hospital in [place], [place] 2 days ago that we will attempt to obtain images of. He was treated with toradol at that timefor his pain. Though this was helpful for his back pain, it did not sit well with his stomach. We will rotate him to hydromorphone and attempt to dose find while hospitalized and plan to initiatea long acting agent, likely methadone. As it is later in the day, we won't initiate dexamethasone atthis time but could consider starting in the AM. He has not been sleeping well due to the pain, so will add a low dose zyprexa to be available for both sleep and a likely component of total pain. Fortunately, his appetite is good, he is continuing to have good amounts of energy and is able to ambulate without difficulty. Plan - MRI lumbar and thoracic spine with IV contrast in AM. - Attempt to obtain [facility] that was completed withinthe last 48 hours. Authorization to release medical records to be signed tonight. - Oncologist is Dr. Murray (last evaluated 12/31/20). Original diagnosis of pancreatic cancer in 07/2020. - ERCP with metal stent insertion/exchange in 07/2020 complicated by pancreatitis and peripancreaticabscess and bacteremia. - 6 hospitalizations since 08/2020 due to complications of malignancy. - Received 1 cycle of gemcitabine/paclitaxel on 10/16/20. - PET-CT from 08/2020 with no evidence of metastatic disease. - Evaluated by Dr. Travis (hepatobiliary surgery) on 12/31 and was told there are no further surgicalinterventions available. - Pain consult to determine if candidate for endoscopic celiac block. - Consider radiation oncology consult pending results of MRI lumbar/thoracic spine. - Repeat CBC, LFT's in AM. PAIN: - Discontinue oxycodone. - Start hydromorphone 0.8 mg IV every 1 hour prn pain. Do NOT give within 1 hour of prn oral hydromorphone. - Consider initiation of hydromorphone BUILDING SERVICES ENGINEER if pain not well managed with current regimen. - Start hydromorphone 4 mg po every 3 hours prn pain. - Start tylenol 1000 mg po TID. - Consider initiation of dexamethasone for bony pain if evidence of metastatic disease on MRI. - Consider initiation of long acting methadone vs fentanyl patch once able to dose find adequate analgesia with a goal pain score of 2/10. - Obtain EKG in AM to have baseline QTc interval if starting methadone. - Obtain BMP, magnesium in AM. Goal potassium > 4 and goal magnesium > 2 to prevent cardiac arrhythmias if initiating methadone. CONSTIPATION: - Continue with miralax 17 grams po BID. - Continue with senokot-s 3 tabs po BID. - Start dulcolax suppository 10 mg pr daily prn constipation. - Last BM 12/30. NAUSEA: - Continue with zofran 8 mg po every 8 hours prn N/V. - Start zofran 4 mg IV every 8 hours prn N/V. - Start zyprexa 5 mg po TID prn N/V. ANXIETY/INSOMNIA: - Start zyprexa 5 mg po TID prn anxiety, insomnia. Fluids: Encourage po intake Electrolytes: Replete prn Nutrition/Diet: Regular Lines/Drains: IVAD Prophylaxis: Lovenox 40 mg SQ daily Code Status: Full Code Healthcare Surrogate(s): , Shaniqua Campbell Advance Care Planning Documentation: None on file Anticipated Disposition: Home with family once symptoms managed and medically stable. Would like to be able to discharge 01/02 if able due to a family celebration. Mr. Campbell's case was discussed with Dr. Yamileth Hermosillo. Counseling was provided [id number] at bedside regarding the plan of care as stated above. ??Total time spent was??45??minutes, with >50%??spent on counseling and coordination of care, including diagnostic results/impressions, further recommendations for diagnostic studies, risks/benefits/alternatives of treatment options, and importance of adherence with suggested management plans. I also reviewed my impressions and recommendations with other health care providers to accommodate the needs of the patient. Please do not hesitate to call the Inpatient Palliative Care Service (IPCS) pager at [phone] for any questions. Lianne Shah APRN/CATHERINE Nurse Practitioner [facility] documented in this encounter Nursing Notes Jayjay Cho R.N. - 01/02/2021 11:05 AM CDT Shift Goals: Clinical Goals for the Shift: [place] [facility]ify possible barriers to meeting goals/advancing plan of care: none End of Shift Summary: VSS. AVS went over with patient and all questions answered. All patient belongings gathered and sent home with patient. IVAD de- accessed. Pt picking prescriptions up on way out and meeting at door to travel home. Problem: PAIN - ADULT Goal: PT VERBALIZES/DEMONSTRATES [...] discharge needs identified Outcome: Adequate for Discharge Jayjay Cho R.N. - 01/01/2021 6:22 PM CDT Shift Goals: Clinical Goals for the Shift: pain control and ambulate 3x Identify possible barriers to meeting goals/advancing plan of care: none End of Shift Summary: VSS. Pt ambulaed 3x. Pain well managed with Prn dilaudid. Pain was increased with MRI scan and Lidocaine patch applied to lower back. Pt refused Voltaren jell, as he has used in the past and has found no benefit. Plan is to continue to manage pain. Marcelina Torrez R.N. - 01/01/2021 1:32 PM CDT IVAD Contrast Injection Assessment Details: What type of IVAD? Power ---patient does not have power tubing currently but his MRI is hand inject today. If power???What identifiers were used (2 needed or Rad approval)? [place] or Outside medical record (Date 11/05/20 placement note) and Xray/Vice President Supply Chain with CT label viewable (Date if applicable11/05/20) Tip placement verified? Yes Location: [place] junction Date (if applicable): November 05, 2020 Blood return verified? Yes VAPP Orders (Nurse to use Saline or Heparin post scan): heparin and saline Is patient staying accessed after scan? Yes Mima Penaloza R.N. - 01/01/2021 6:49 AM CDT Shift Goals: Clinical Goals for the Shift: pain control Identify possible barriers to meeting goals/advancing plan of care: Pain control End of Shift Summary: Patient slept well through the night. Pain well controlled with oral dilaudid.VSS. Patient has MRI today of the spine at 2 pm. Release of information signed by patient to [facility] [place], [place] to release CT records of the abdomen and pelvis to [place]. Problem: PAIN - ADULT Goal: PT VERBALIZES/DEMONSTRATES ADEQUATE COMFORT LEVEL OR BASELINE Outcome: Progressing Problem: KNOWLEDGE DEFICIT Goal: Patient/family/caregiver demonstrates understanding of disease process, treatment plan, medications, and discharge instructions Outcome: Progressing Problem: INFECTION - ADULT Goal: Absence of infection during hospitalization Outcome: Progressing Problem: SKIN/TISSUE INTEGRITY Goal: Skin/Tissue integrity maintained or improved Outcome: Progressing Goal: Oral and Nasal mucous membranes remain intact Outcome: Progressing Problem: SAFETY ADULT Goal: Maintain a safe environment Outcome: Progressing Problem: DISCHARGE PLANNING Goal: Patient discharge needs identified Outcome: Progressing Sheree Butts RJohn. - 12/31/2020 9:49 PM CDT Shift Goals: Clinical Goals for the Shift: pain control Identify possible barriers to meeting goals/advancing plan of care: pain End of Shift Summary: Pt was admitted to the unit for 9/10 lower back pain. Oral and IV Dilaudid were given consistently throughout shift and pt reports pain has been well controlled with the Dilaudid.Pt has had increased anxiety since arriving, but PRN Zyprexa was given and effective. documented in this encounter Miscellaneous Notes Hospital Course - Alyssa Gonzalez M.D., M.S. - 01/01/2021 2:43 PM CDT Mr. Campbell is a 55 year-old man from [place], [place] with pancreatic adenocarcinoma diagnosed 07/2020 complicated??by??malignant biliary stenosis requiring stents, ERCP-induced necrotizing pancreatitis, and infected nonocclusive portal vein thrombosis who was admitted 12/31 with increasing mid- lower central back pain. His PRN opioid was rotated from oxycodone 5mg PO to hydromorphone 4mg PO with significant improvement in his pain. He was walking around the unit comfortably the day after admission. With the increase in pain, a thoracic/lumbar MRI was obtained that did not show any evidence of spine metastases, fractures, or neuroforaminal narrowing to provide an explanation of his pain. Repeat LFTs were ordered given his history of biliary stent occlusion; these were within normal limits. Reasonfor focalized back pain remains unclear, although no evidence of severe concerning etiology such as cord compression or a new fracture. We have follow-up scheduled in our clinic on 01/11. With regards to his abdominal pain, per oncology, plan has been for an endoscopic celiac plexus block for his abdominal pain since percutaneous is limited secondary to his pancreatiits. As his pain wasimproved and he had plans for Monday, this was not completed prior to discharge. An EUS order had been placed as an outpatient, and we confirmed the EUS has been scheduled for 01/12. Dr. Murray and Dr. Travis have been notified. documented in this encounter Plan of Treatment Upcoming Encounters Date Type Specialty Care Team Description 06/22/2022 Lab Laboratory Medicine Maria Del Rosario Gomez AP RN, C.N.P., M.S. [address] [place] [address] [phone] ([facility]) 06/22/2022 Infusion Oncology Maria Del Rosario Gomez APRN, C.N .P., M.S. [address] [place] [address] [phone] (M[facility]) 06/29/2022 [facility] [address] [place], [place] [phone] ( rk) 06/29/2022 Infusion Oncology Maria Del Rosario Gomez APRN, C.N .P., M.S. [address] [place], [place] [phone] ( rk) Scheduled Referrals Name Type Priority Associated Order Schedule Diagnoses Palliative Medicine Outpatient Referral Routine Pain Cancer E xpected: - General consult Associated 01/01/2021 (clinic) (Approximate), Expires: 01/02/2024 documented as of this encounter Procedures Procedure Name Priority Date/Time Associated Comments Diagnosis CBC WITHOUT Timed 01/02/2021 8:16 Results for this DIFFERENTIAL, B AM CDT procedure ar e in the results section. MR THORACIC AND RAD - Routine 01/01/2021 3:14 Results for this LUMBAR SPINE (most inpatients PM CDT procedure a re in WITHOUT AND WITH IV and all the resu lts CONTRAST outpatients) section. ECG Routine 01/01/2021 6:47 Results for this AM CDT procedure are i n the results section. HEPATIC FUNCTION Routine 01/01/2021 6:04 Results for this PANEL, S AM CDT procedure are i n the results section. CBC WITH Routine 01/01/2021 6:04 Results for this DIFFERENTIAL, B AM CDT procedure ar e in the results section. BASIC METABOLIC Routine 01/01/2021 6:04 Results f or this PANEL, S/P AM CDT procedure are i n the results section. MAGNESIUM, S Routine 01/01/2021 6:03 Results for this AM CDT procedure are i n the results section. SARS CORONAVIRUS 2, Routine 12/31/2020 6:09 Resul ts for this MOLECULAR PM CDT procedure are i n DETECTION, PCR, the results VARIES section. VRE PCR Routine 12/31/2020 5:54 Results for this PM CDT procedure are i n the results section. documented in this encounter Results (ABNORMAL) CBC without Differential (01/02/2021 8:16 AM CDT) [facility] Method Time Signature Hemoglobin 10.1 (L) 13.2 - 01/02/2021 DTL 16.6 g/dL 8:36 AM CDT Hematocrit 33.2 (L) 38.3 - 01/02/2021 DTL 48.6 % 8:36 AM CDT Erythrocytes 4.10 (L) 4.35 - 01/02/2021 DTL 5.65 8:36 AM CDT x10(12)/L MCV 81.0 78.2 - 01/02/2021 DTL 97.9 fL 8:36 AM CDT RBC Distrib Width 15.8 (H) 11.8 - 01/02/2021 DTL 14.5 % 8:36 AM CDT Platelet Count 267 135 - 317 01/02/2021 DTL x10(9)/L 8:36 AM CDT Leukocytes 6.8 3.4 - 9.6 01/02/2021 DTL x10(9)/L 8:36 AM CDT Specimen Anatomical Collection Method Collection Time Receive d Time (Source) Location / / Volume Laterality Blood (Blood, 01/02/2021 8:16 AM 01/03/20 8:28 Venous) CDT AM CDT Alyssa Gonzalez M.D., M.S. LAB BLOOD ADD-ON Performing Organization Address City/State/ZIP Code Phon e Number [facility] - [address] [place] [phone] [facility] [place] [address] Laboratories-[facility] 200 [facility] MR Thoracic and Lumbar Spine without and with IV Contrast (01/01/2021 3:14 PM CDT) Anatomical Region Laterality Modality Thoracic Spine, Neuroradiology RST LOS, Neuroradiology N/A Magnetic Resonance ARZ LOS, Neuroradiology FLA LOS Specimen (Source) Anatomical Collection Method Collection Time Re ceived Time Location / / Volume Laterality 01/01/2021 3:47 PM CDT Impressions 01/01/2021 4:20 PM CDT 1. Multiple vertebral hemangiomas with no convincing evidence of metastatic disease involving the spine. No vertebra l collapse or compromise of the central canal or neural foramen. 2. The thoracic cord and cauda equina ar e normal. Narrative 01/01/2021 4:20 PM CDT EXAM: MR THORACIC AND LUMBAR SPINE WITHOUT AND WITH IV CONTRAST COMPARISON: Outside chest CT 07/30/[address] 10/23/2020. CT abdomen/pelvis 11/26/2020. FINDINGS: 7 cervical, 12 thoracic, and 5 lumbar vertebrae. Small presumed hemangiomas in C7, T6, T7 , and in the left T11 and T12 pedicles. These appear stable since prior chest CT exams. Additional small hemangiomas in the sacrum. Apparent left paravertebral enhancement at L1-L2 presumably corresponds to venous collaterals better seen on the prior abdomen/pelvis CT. Minimal spondylotic changes with scatter ed disc bulges most prominent at L5-S1 and small superimposed central protrusio n at L5-S1. No vertebral collapse. No substantial spinal canal or foraminal na rrowing. Signal within the cord is normal. Normal cauda equina without abno rmal enhancement, thickening, or nodularity. Procedure Note Kalee Bentley M.D. - 01/01/2021F ormatting of this note might be different from the original. EXAM: MR THORACIC AND LUMBAR SPINE WITHO UT AND WITH IV CONTRAST COMPARISON: Outside chest CT 07/30/[address] 10/23/2020. CT abdomen/pelvis 11/26/2020. FINDINGS: 7 cervical, 12 thoracic, and 5 lumbar vertebrae. Small presumed hemangiomas in C7, T6, T7 , and in the left T11 and T12 pedicles. These appear stable since prior chest CT exams. Additional small hemangiomas in the sacrum. Apparent left paravertebral enhancement at L1-L2 presumably corresponds to venous collaterals better seen on the prior abdomen/pelvis CT. Minimal spondylotic changes with scatter ed disc bulges most prominent at L5-S1 and small superimposed central protrusio n at L5-S1. No vertebral collapse. No substantial spinal canal or foraminal na rrowing. Signal within the cord is normal. Normal cauda equina without abno rmal enhancement, thickening, or nodularity. IMPRESSION: 1. Multiple vertebral hemangiomas with n o convincing evidence of metastatic disease involving the spine. No vertebra l collapse or compromise of the central canal or neural foramen. 2. The thoracic cord and cauda equina ar e normal. Lianne Shah APRN, C.N.P. IMG MRI PROCEDURES ECG 12 Lead (01/01/2021 6:47 AM CDT) P athologist Signature Ventricular Rate 47 BPM MUSE ECG/Min NV Interval 150 ms MUSE QRSD Interval 102 ms MUSE QT Interval 462 ms MUSE QTC Interval 408 ms MUSE P [place] 66 degrees MUSE R [place] 37 degrees MUSE T Wave [place] 41 degrees MUSE Specimen Anatomical Collection Method Collection Time Receive d Time (Source) Location / / Volume Laterality 01/01/2021 6:47 AM 6:50 CDT AM CDT Impressions MUSE - 01/01/2021 6:50 AM CDT Marked sinus bradycardia Slight ST elevation in V2 T wave abnormality, consider anterolater al ischemia When compared with ECG of 12-DEC-2020 07 :25, Vent. rate has decreased BY ??[address] and T wave changes have occurred Reviewed by HAROON Delvalle Narrative This result has an attachment that is no t available. Procedure Note Atul Higuera Jr., M.D. - 01/01/2021For matting of this note might be different from the original. IMPRESSION: Marked sinus bradycardia Slight ST elevation in V2 T wave abnormality, consider anterolater al ischemia When compared with ECG of 12-DEC-2020 07 :25, Vent. rate has decreased BY [address] and T wave changes have occurred Reviewed by HAROON Delvalle Lianne Shah APRN, C.N.P. ECG ORDERABLES Performing Organization Address City/State/ZIP Code Phon e Number MUSE MUSE NA (ABNORMAL) Hepatic Function Panel (01/01/2021 6:04 AM CDT) Patholo gist Method Time Signature Bilirubin, Total, S 0.3 <=1.2 01/01/2021 DTL mg/dL 7:01 AM CDT Bilirubin, Direct, S <0.2 0.0 - 0.3 01/01/2021 DTL mg/dL 7:01 AM CDT Aspartate 12 8 - 48 01/01/2021 DTL Aminotransferase U/L 7:01 AM CDT (AST), S Alanine 13 7 - 55 01/01/2021 DTL Aminotransferase U/L 7:01 AM CDT (ALT), S Alkaline 118 40 - 129 01/01/2021 DTL Phosphatase, S U/L 7:01 AM CDT Albumin, S 3.2 (L) 3.5 - 5.0 01/01/2021 DTL g/dL 7:01 AM CDT Protein, Total, S 6.4 6.3 - 7.9 01/01/2021 DTL g/dL 7:01 AM CDT Specimen Anatomical Collection Method Collection Time Receive d Time (Source) Location / / Volume Laterality Blood (Blood, 01/01/2021 6:04 AM 01/02/20 6:30 Central Line) CDT AM CDT Lianne Shah APRN, C.N.P. LAB BLOOD ADD-ON Performing Organization Address City/State/ZIP Code Phon e Number [facility] - [address] [place] [phone] [facility] [place] [address] Laboratories-[facility] 200 [facility] (ABNORMAL) CBC with Differential, Blood (01/01/2021 6:04 AM CDT) [facility] gist Method Time Signature Hemoglobin 9.4 (L) 13.2 - 01/01/2021 DTL 16.6 g/dL 6:43 AM CDT Hematocrit 31.3 (L) 38.3 - 01/01/2021 DTL 48.6 % 6:43 AM CDT Erythrocytes 3.86 (L) 4.35 - 01/01/2021 DTL 5.65 6:43 AM CDT x10(12)/L MCV 81.1 78.2 - 01/01/2021 DTL 97.9 fL 6:43 AM CDT RBC Distrib Width 16.2 (H) 11.8 - 01/01/2021 DTL 14.5 % 6:43 AM CDT Platelet Count 280 135 - 317 01/01/2021 DTL x10(9)/L 6:43 AM CDT Leukocytes 5.1 3.4 - 9.6 01/01/2021 DTL x10(9)/L 6:43 AM CDT Neutrophils 2.95 1.56 - 01/01/2021 DTL 6.45 6:43 AM CDT x10(9)/L Lymphocytes 1.42 0.95 - 01/01/2021 DTL 3.07 6:43 AM CDT x10(9)/L Monocytes 0.51 0.26 - 01/01/2021 DTL 0.81 6:43 AM CDT x10(9)/L Eosinophils 0.22 0.03 - 01/01/2021 DTL 0.48 6:43 AM CDT x10(9)/L Basophils 0.04 0.01 - 01/01/2021 DTL 0.08 6:43 AM CDT x10(9)/L Specimen Anatomical Collection Method Collection Time Receive d Time (Source) Location / / Volume Laterality Blood (Blood, 01/01/2021 6:04 AM 01/02/20 6:32 Central Line) CDT AM CDT Lianne Shah APRN, C.N.P. LAB BLOOD ADD-ON Performing Organization Address City/State/ZIP Code Phon e Number [facility] - [address] [place] [phone] [facility] [place] [address] Laboratories-[facility] 200 [facility] Basic Metabolic Panel (01/01/2021 6:04 AM CDT) P athologist Signature Potassium, S 3.9 3.6 - 5.2 01/01/2021 DTL mmol/L 7:01 AM CDT Sodium, S 140 135 - 145 01/01/2021 DTL mmol/L 7:01 AM CDT Chloride, S 106 98 - 107 01/01/2021 DTL mmol/L 7:01 AM CDT Bicarbonate, S 26 22 - 29 01/01/2021 DTL mmol/L 7:01 AM CDT Anion Gap 8 7 - 15 01/01/2021 DTL 7:01 AM CDT BUN (Blood Urea 18 8 - 24 01/01/2021 DTL Nitrogen), S mg/dL 7:01 AM CDT Creatinine 0.81 0.74 - 01/01/2021 DTL 1.35 mg/dL 7:01 AM CDT eGFR-Non >90 >=60 01/01/2021 DTL Black/ mL/min/BSA 7:01 AM CDT [place] Comment: ----ADDITIONAL INFORMATION---- Estimated GFR calculated using the 2009 CKD_EPI creatinine equation. eGFR-Black/ >90 >=60 mL/min/BSA 2020 7:01 AM CDT DTL Comment: ----ADDITIONAL INFORMATION---- Estimated GFR calculated using the 2009 CKD_EPI creatinine equation. Calcium, Total, S 8.7 8.6 - 10.0 mg/dL 01/01/2021 7:01 AM CDT DTL Glucose, S 79 70 - 140 mg/dL 01/01/2021 7:01 AM CDT D TL Specimen Anatomical Collection Method Collection Time Receive d Time (Source) Location / / Volume Laterality Blood (Blood, 01/01/2021 6:04 AM 01/02/20 6:30 Central Line) CDT AM CDT Lianne Shah APRN, C.N.P. LAB BLOOD ADD-ON Performing Organization Address City/[facility] Phon e Number [facility] [address] [place] [address] Magnesium (01/01/2021 6:03 AM CDT) P athologist Signature Magnesium, S 2.0 1.7 - 2.3 01/01/2021 DTL mg/dL 6:55 AM CDT Specimen Anatomical Collection Method Collection Time Receive d Time (Source) Location / / Volume Laterality Blood (Blood, 01/01/2021 6:03 AM 01/02/20 6:30 Central Line) CDT AM CDT Lianne Shah APRN, C.N.P. LAB BLOOD ADD-ON Performing Organization Address City/State/[facility] Phon e Number [facility] - [address] [place], [place] [address] [place] [address] SARS Coronavirus 2, Molecular Detection, PCR, Varies Asymptomatic (12/31/2020 6:09 PM CDT) Patholo gist Method Time Signature COVID-19, Swab, 12/31/2020 DTL PCR, Source Nasopharynx 10:34 PM CDT COVID-19, Undetected Undetected 12/31/2020 DTL PCR, Result 10:34 PM CDT Comment: SARS-CoV-2 RNA absent. This result does not rule out COVID-19 in the patient, as the sensitivity of the test depends o n the timing of the specimen collection and quality of the specimen. Result should be correlated with patient's history and clinical presentat ion. ----ADDITIONAL INFORMATION---- This test was developed and its performa nce characteristics determined by [facility] in a manner consistent with CLIA requirements. This test has not been cleared or approved by the [place] Mich[place] d and Drug Administration. Specimen Anatomical Collection Method Collection Time Receive d Time (Source) Location / / Volume Laterality Varies 12/31/2020 6:09 PM 6:35 (Nasopharynx) CDT PM CDT Yamileth Hermosillo B.M.B.Ch. LAB MICROBIOLOGY - GENERAL O [place]ILO Performing Organization Address [facility] Phon e Number [facility] [id number] [place] [address] 200 [facility] VRE PCR (12/31/2020 5:54 PM CDT) [facility] gist Method Time Signature Specimen Swab, 01/01/2021 DTL Source Perirectal 3:20 PM CDT VRE PCR Negative Not 01/01/2021 DTL Applicable 3:20 PM CDT Comment: ----ADDITIONAL INFORMATION---- This test was developed using an analyte specific reagent. Its performance characteristics were determined by [facility] in a manner consistent with CLIA requirements. This test has not bee n cleared or approved by the U.S. Food and Drug Administration. Specimen Anatomical Collection Method Collection Time Receive d Time (Source) Location / / Volume Laterality Varies 12/31/2020 5:54 PM 8:11 (Perirectal) CDT PM CDT Yamileth Hermosillo B.M.B.Ch. LAB MICROBIOLOGY - GENERAL Clara PAGE Performing Organization Address 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) Pain Back Gastroesophageal Reflux Disease NOS Pseudocyst Pancreas documented in this encounter Admitting Diagnoses Diagnosis Pain Cancer Associated documented in this encounter Administered Medications Inactive Administered Medications - up to 3 most recent administrations Medication Order MAR Action Action Date Dose Rate Site acetaminophen tablet 1,000 mg Given 01/01/2021 8:24 PM CDT 1,000 mg (TYLENOL) 1,000 mg, oral, 3 times daily, First dose (after last modification) on Sandra 12/31/20 at 2100 Given 01/01/2021 3:33 PM CDT 1,000 mg Given 01/01/2021 8:11 AM CDT 1,000 mg bisacodyL suppository 10 mg (DULCOLAX) 10 mg, rectal, Daily PRN, constipation, if no BM on senna and miralax, Starting on Mon01/01/21 at 1510 diclofenac sodium 1 % gel 4 g (VOLTAREN) 4 g, topical, 3 times daily, First dose on Mon01/01/21 at 1400, Do not exceed 32 g per day, over all affected region. Massage into skin f or AT LEAST 2-3 minutes overlying spine region back pain. Use do sing card to measure product. 2 g = 2.25 inches, 4 gm = 4.5 inches. Rinse dosing card after use and save for each administration. gadobutrol injection 0.01-30 mL (GADAVIS T) Given 01/01/2021 2:41 PM CDT 7 mL 0.01-30 mL, intravenous, Once in imaging, contrast, Starting on Mon01/01/21 at 1326, For 1 dose, Imaging Protocol Orders, Dose per Radiant Medication Guidelines heparin flush 500 Units Given 01/01/2021 3:14 PM CDT 500 Units 500 Units, intra-catheter, During hospitalization, line care, Prior to discharge, Starting on Sandra 12/31/20 at 1826, For 1 dose, Implanted Vascular Access Device (IVAD) Venous Non-Valved: Following saline flush prior to discharge. heparin flush 500 Units Given 01/02/2021 10:52 AM CDT 500 Units 500 Units, intra-catheter, During hospitalization, line care, Prior to discharge, Starting on [facility] 01/02/21 at 0937, For 1 dose, Implanted Vascular Access Device (IVAD) Venous Non-Valved: Following saline flush prior to discharge. HYDROmorphone (PF) injection 0.8 mg Given 12/31/2020 6:35 PM CDT 0.8 mg (DILAUDID) 0.8 mg, intravenous, Every 1 hour PRN, severe pain or score 7-10 of 10, pain not relieved by oral dilaudid, Starting on Sandra 12/31/20 at 1805, Do not give within 1 hour of prn oral dilaudid HYDROmorphone (PF) injection 0.8 mg Given 12/31/2020 9:10 PM CDT 0.8 mg (DILAUDID) 0.8 mg, intravenous, Every 2 hour PRN, severe pain or score 7-10 of 10, pain not relieved by oral dilaudid, Starting on Sandra 12/31/20 at 1845, Do not give within 1 hour of prn oral dilaudid HYDROmorphone (PF) injection 0.8 mg (DIL AUDID) 0.8 mg, intravenous, Every 1 hour PRN, s evere pain or score 7-10 of 10, pain not relieved by oral dilaudid, Starting on [facility] 12/31/20 at 2215, Do not give within 1 hour of prn oral dilaudid HYDROmorphone tablet 4 mg (DILAUDID) Given 01/02/2021 10:37 AM CDT 4 mg 4 mg, oral, Every 3 hours PRN, moderate pain or score 4-6 of 10, Starting on Sandra 12/31/20 at 1805 Given 01/02/2021 6:01 AM CDT 4 mg Given 01/02/2021 12:26 AM CDT 4 mg lidocaine 5 % 1 patch Medication Applied 01/01/2021 5:05 PM 1 patch Lower Back (LIDODERM) CDT 1 patch, transdermal, Administer over 12 Hours, Every 24 hours, First dose on Mon01/01/21 at 1800, Remove after 12 hours. Apply to flank overlying paraspinal regions of pain. LORazepam tablet 0.5 mg (ATIVAN) 0.5 mg, sublingual, As needed, anxiety, Starting on Fr i 01/01/21 at 1326, For 4 doses, Imaging Protocol Orders, 1 mg by mouth once as needed for anxiety related to radiology study. May administer 0.5 mg d ose if patient prefers. May repeat every 15 minutes if anxiety persists (2 mg maximum dose). OLANZapine tablet 5 mg (ZyPREXA) Given 12/31/2020 9:18 PM CDT 5 mg 5 mg, oral, 3 times daily PRN, N/V, anxiety, insomnia, Starting on Mon12/31/20 at 1808 ondansetron (PF) injection 4 mg (ZOFRAN) 4 mg, intravenous, Every 8 hours PRN, na usea, vomiting, Starting on Mon12/31/20 at 1808 ondansetron tablet 4 mg (ZOFRAN) 4 mg, oral, Every 8 hours PRN, nausea, v omiting, Starting on Mon01/01/[address] tablet 40 mg (PROTONIX) Given 01/02/2021 6:01 AM CDT 40 mg 40 mg, oral, Daily before breakfast, First dose on Mon01/01/21 at 0700, For 275 days, Swallow whole. Do NOT crush, chew, or split tablet. Given 01/01/2021 6:08 AM CDT 40 mg polyethylene glycol powder packet 17 g Given 01/02/2021 8:06 AM CDT 17 g (MIRALAX) 17 g, oral, 2 times daily, First dose on Mon12/31/20 at 2100, Dissolve in 240 mLs (8 ounces) of water prior to giving. Avoid mixing with starch-based thickened liquids. Given 01/01/2021 8:24 PM CDT 17 g Given 01/01/2021 8:12 AM CDT 17 g sennosides-docusate sodium 8.6-50 mg per Given 01/02/2021 8: 05 AM CDT 3 tablets tablet 3 tablet (SENOKOT-S) 3 tablet, oral, 2 times daily, First dose on Mon12/31/20 at 2100 Given 01/01/2021 8:24 PM CDT 3 tablets Given 01/01/2021 8:11 AM CDT 3 tablets sodium chloride 0.9 % injection 10 mL Given 01/01/2021 3:14 PM CDT 10 mL 10 mL, intravenous, As needed, line care, Starting on Mon12/31/20 at 1802, Peripheral Intravenous Catheter and Rapid Infusion Catheter, prior to blood sampling, post blood transfusion or post blood sampling Given 01/01/2021 2:42 PM CDT 10 mL sodium chloride 0.9 % injection 10 mL 10 mL, intravenous, During hospitalizati on, line care, Prior to discharge, Starting on Sandra 12/31/20 at 1826, For 1 dose, Impl anted Vascular Access Device (IVAD) Venous Non-Valved: Followed by heparin flush prior to dischar ge. sodium chloride 0.9 % injection 3 mL Given 01/01/2021 8:30 PM CDT 3 mL 3 mL, intravenous, Every 12 hours scheduled, First dose on Sandra 12/31/20 at 2100, Peripheral Intravenous Catheter and Rapid Infusion Catheter, when no infusion to maintain patency Given 12/31/2020 8:39 PM CDT 3 mL documented in this encounter Active and Recently Administered Medications Times are shown in CDT. Scheduled Medication Order 12/31/2020 01/01/2021 01/02/2021 acetaminophen tablet 1,000 mg (TYLENOL) 2038 (Given - Provider: Sheree Butts R.N.) 0811 (Given - Provider: Jayjay west R.N.)1533 (Given - Provider: Jayjay Cho R.N.)2023 (Given - Provider: Mima Penaloza RMariajose) 0806 (Not Given - Provider: Jayjay Cho R.N. - Reason: Patient/family refused - Comment: RN educated on non-narcotic and narcoic use for pain. Pt refused tylenol) 1,000 mg, oral, 3 times daily, First dos e (after last modification) on Sandra 12/31/20 at 2100 diclofenac sodium 1 % gel 4 g (VOLTAREN) 153 (Not Given - Provider: Jayjay Cho R.N. - Reason: Patient/family refused - Comment: pt has tried in past as reports that it doesn't work for him)2025 (Not Given - Provider: Mima Penaloza RJohn. - Reason: Patient/family refused) 0807 (Not Given - Provider: Jayjay Cho RRiazNRiaz - Reason: Patient/family refused) 4 g, topical, 3 times daily, First dose on Mon01/01/21 at 1400, Do not exceed 32 g per day, over all affected region. Massage into skin for AT LEAST 2-3 minutes overlying spine region back pain. Use dos ing card to measure product. 2 g = 2.25 inches, 4 gm = 4.5 inches. Rinse dosing card after use and save for each administration. enoxaparin injection 40 mg (LOVENOX) 1815 (Not Given - Provider: Sheree Butts R.N. - Reason: Other - Comment: Provider okayed. Pt very active.) 1703 (Not Given - Provider: Jayjay Cho R.N. - Reason: Patient/family refused) 40 mg, subcutaneous, Every 24 hours sche duled, First dose on Mon12/31/20 at 1815 lidocaine 5 % 1 patch (LIDODERM) 1704 (M edication Applied - Provider: Jayjay Cho R.N.) 0946 (Medication Removed - Provider: Boris Cho R.N.) 1 patch, transdermal, Administer over 12 Hours, Every 24 hours, First dose on Mon01/01/21 at 1800, Remove after 12 hours. Apply to flank overlying paraspinal regions of pain. pantoprazole DR tablet 40 mg (PROTONIX) 607 (Given - Provider: Mima Penaloza R.N.) 06 (Given - Provider: Darren gonzáles RRiazNRiaz) 40 mg, oral, Daily before breakfast, Fir st dose on Mon01/01/21 at 0700, For 275 days, Swallow whole. Do NOT crush, chew, or split tablet. polyethylene glycol powder packet 17 g (MIRALAX) 2038 (Given - Provider: Sheree Butts R.N.) 0812 (Given - Provider: Jayjay west R.N.)2023 (Given - Provider: Mima Penaloza R.N.) 0806 (Given - Provider: Jayjay west R.N.) 17 g, oral, 2 times daily, First dose on Mon12/31/20 at 2100, Dissolve in 240 mLs (8 ounces) of water prior to giving. Avoid mixing with starch-based thickened liquids. sennosides-docusate sodium 8.6-50 mg per tablet 3 tabl et (SENOKOT-S) 2038 (Given - Provider: Sheree Butts R.N.) 0811 (Given - Provider: Jayjay Cho RRiazNRiaz)2023 (Given - Provider: Mima Penaloza R.N.) 0805 (Given - Provider: Randall Anderson.NRiaz) 3 tablet, oral, 2 times daily, First dose on Mon12/31/20 at 2100 sodium chloride (PF) 0.9 % injection 1-100 mL 153 (Not Given - Provider: Jayjay Cho R.Savanna - Reason: Other - Comment: down in MRI) 1-100 mL, intravenous, Once, On 01/01 at 1330, For 1 dose, Imaging Protocol Orders sodium chloride 0.9 % injection 3 mL 2038 (Given - Pro vider: Sheree Butts R.N.) 102 (Not Given - Provider: Jayjay duron RRiazNRiaz - Reason: Patient/family refused)2029 (Given - Provider: Mima Penaloza R.N.) 08 (Not Given - Provider: Jayjay Cho R.NRiaz - Reason: Order parameters not met) 3 mL, intravenous, Every 12 hours schedu led, First dose on Mon12/31/20 at 2100, Peripheral Intravenous Catheter and Rapid Infusion Catheter, when no infusion to maintain patency PRN Medication Order 12/31/2020 01/01/2021 01/02/2021 bisacodyL suppository 10 mg (DULCOLAX) 10 mg, rectal, Daily PRN, constipation, if no BM on senna and miralax, Starting on Mon01/01/21 at 1510 gadobutrol injection 0.01-30 mL (GADAVIST) (COMPLETED) 1441 (Given - Provider: Germain Walsh(R), R.TRiaz(R)(MR) - Comment: [id number]) 0.01-30 mL, intravenous, Once in imaging , contrast, Starting on Mon01/01/21 at 1326, For 1 dose, Imaging Protocol Orders, Dose per Radiant Medication Guidelines heparin flush 500 Units (COMPLETED) 1514 (Given - Provider: Katia Deal RRiazSavanna) 500 Units, intra-catheter, During hospit alization, line care, Prior to discharge, Starting on Sandra 12/31/20 at 1826, For 1 dose, Implanted Vascular Access Device (IVAD) Venous Non-Valved: Following saline flush prior to discharge. heparin flush 500 Units (COMPLETED) 1052 (Given - Provider: Jayjay Cho R.N.) 500 Units, intra-catheter, During hospit alization, line care, Prior to discharge, Starting on 01/02/21 at 0937, For 1 dose, Implanted Vascular Access Device (IVAD) Venous Non-Valved: Following saline flush prior to discharge. HYDROmorphone (PF) injection 0.8 mg (DILAUDID) (CANCEL ED) 1835 (Given - Provider: Sheree Butts R.N.) 0.8 mg, intravenous, Every 1 hour PRN, s evere pain or score 7-10 of 10, pain not relieved by oral dilaudid, Starting on Sandra 12/31/20 at 1805, Do not give within 1 hour of prn oral dilaudid HYDROmorphone (PF) injection 0.8 mg (DILAUDID) (CANCEL ED) 2110 (Given - Provider: Sheree Butts R.N.) 0.8 mg, intravenous, Every 2 hour PRN, s evere pain or score 7-10 of 10, pain not relieved by oral dilaudid, Starting on Sandra 12/31/20 at 1845, Do not give within 1 hour of prn oral dilaudid HYDROmorphone (PF) injection 0.8 mg (DILAUDID) 0.8 mg, intravenous, Every 1 hour PRN, s evere pain or score 7-10 of 10, pain not relieved by oral dilaudid, Starting on Sandra 12/31/20 at 2215, Do not give within 1 hour of prn oral dilaudid HYDROmorphone tablet 4 mg (DILAUDID) 1920 (Given - Pro vider: Sheree Butts R.N.) 0034 (Given - Provider: Mima Penaloza R.N.)0 608 (Given - Provider: Mima Penaloza R.N.)1217 (Given - Provider: Jayjay Cho R.N.)1610 (Given - Provider: Jayjay Cho R.N.)1858 (Given - Provider: Jayjay Cho R.N.) 0026 (Given - Provider: Darren Morrison R.N.)0601 (Given - Provider: Darren Morrison R.N.)1037 (Given - Provider: Jayjay Cho R.N.) 4 mg, oral, Every 3 hours PRN, moderate pain or score 4-6 of 10, Starting on Mon12/31/20 at 1805 lidocaine-prilocaine 2.5-2.5 % cream (EMLA) topical, As needed, mild pain or score 1 -3 of 10, other, port access, Starting on Mon12/31/20 at 1806 LORazepam tablet 0.5 mg (ATIVAN) 0.5 mg, sublingual, As needed, anxiety, Starting on Mon01/01/21 at 1326, For 4 doses, Imaging Protocol Orders, 1 mg by mouth once as needed for anxiety related to radiology study. May administer 0.5 mg dose if patient prefers. May repeat ever y 15 minutes if anxiety persists (2 mg maximum dose). OLANZapine tablet 5 mg (ZyPREXA) 2117 (Given - Provide r: Sheree Butts R.N.) 5 mg, oral, 3 times daily PRN, N/V, anxi ety, insomnia, Starting on Mon12/31/20 at 1808 ondansetron (PF) injection 4 mg (ZOFRAN) 4 mg, intravenous, Every 8 hours PRN, na usea, vomiting, Starting on Mon12/31/20 at 1808 ondansetron tablet 4 mg (ZOFRAN) 4 mg, oral, Every 8 hours PRN, nausea, v omiting, Starting on Mon01/01/21 at 1512 sodium chloride 0.9 % injection 10 mL 14 42 (Given - Provider: Paresh Johnson, R.T.(R), R.T.(R)(MR))1514 (Given - Provider: Katia Deal R.N.) 10 mL, intravenous, As needed, line care , Starting on Sandra 4/22/21 at 1802, Peripheral Intravenous Catheter and Rapid Infusion Catheter, prior to blood sampling, post blood transfusion or post blood sampling sodium chloride 0.9 % injection 10 mL 10 mL, intravenous, During hospitalizati on, line care, Prior to discharge, Starting on Sandra 12/31/20 at 1826, For 1 dose, Implanted Vascular Access Device (IVAD) Venous Non-Valved: Followed by heparin flush prior to discharge. 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
--- OUTSIDE RECORDS SUMMARY | 2022-06-18 16:16 | XMS_ITS | Encounter Summary ---
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 [facility] in [address] [place] [phone] [place] [address] [phone] Social History Tobacco Use Types Packs/Day Years [...] How often do you attend islam or adventism services? 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 [address] [place] [address] [phone] (Mj rk) 06/22/2022 Infusion Oncology Maria Del Rosario Gomez APRN, C.N .P., M.S. [address] [place] [address] [phone] (Mj rk) 06/29/2022 Lab Laboratory Medicine Maria Del Rosario Gomez AP RN, C.N.P., M.S. [address] [place] [address] [phone] (Mj godoy) 06/29/2022 Infusion Oncology Maria Del Rosario Gomez APRN, C.N .P., M.S. [address] [place] [address] [phone] (Mj rk) documented as of this encounter Procedures Procedure Name Priority Date/Time Associated Comments Diagnosis CBC CHEMO - NO ALERTS Routine 12/31/2020 2:23 PM Malignant Siva plasm Results for this CDT Of Pancreas (HCC) procedure are in the results section. CARBOHYDRATE AG 19-9 Routine 12/31/2020 2:23 PM Malignant Neop lasm Results for this (CA 19-9), S CDT Of Pancreas (HCC) procedure are in the results section. GLUCOSE, FASTING, S/P Routine 12/31/2020 2:23 PM Malignant Siva plasm Results for this CDT Of Pancreas (HCC) procedure are in the results section. COMPREHENSIVE Routine 12/31/2020 2:23 PM Malignant Neoplasm Re sults for this METABOLIC PANEL, S/P CDT Of Pancreas (HCC) pr ocedure are in the results section. documented in this encounter Results Carbohydrate Antigen 19-9 (CA 19-9) (12/31/2020 2:23 PM CDT) athologist [facility] Carbohydrate Ag 8 <35 U/mL 12/31/2020 [facility] 19-9, S 7:02 PM CDT Comment: ----ADDITIONAL INFORMATION---- The testing method is an immunoenzymatic assay manufactured by [employer] and performed on the [employer] DxI 800. ? Values obtained with different assay met hods or kits may be different and cannot be used inte rchangeably. ? Test results cannot be interpreted as ab solute evidence for the presence or absence of malignant disease. Specimen Anatomical Collection Method Collection Time Receive d Time (Source) Location / / Volume Laterality Blood (Blood, 12/31/2020 2:23 PM 01/01/20 6:05 Venous) CDT PM CDT Deborah VillaB.S. LAB BLOOD ADD-ON Performing Organization Address City/[facility]/ZIP Code Phon e Number [facility] [address] [place], [place] [address] [facility] [place] [address] Laboratory Medicine and Pathology [address] [place] Glucose, Fasting (12/31/2020 2:23 PM CDT) [facility] Glucose, P 84 70 - 100 12/31/2020 [facility]TL mg/dL 3:15 PM CDT Last Intake 7 hr 12/31/2020 DTL 2:41 PM CDT Specimen Anatomical Collection Method Collection Time Receive d Time (Source) Location / / Volume Laterality Blood (Blood, 12/31/2020 2:23 PM 01/01/20 2:41 Venous) CDT PM CDT Deborah VillaB.S. LAB BLOOD NON ADD-ON Performing Organization Address City/[facility] Phon e Number [facility] - [address] [place], [place] [address] [facility] [place] [place] [address] Laboratories-[facility] [address] [facility] (ABNORMAL) Comprehensive Metabolic Panel (12/31/2020 2:23 PM CDT) [facility] Potassium, S 3.8 3.6 - 5.2 12/31/2020 DTL mmol/L 3:18 PM CDT Sodium, S 137 135 - 145 12/31/2020 DTL mmol/L 3:18 PM CDT Chloride, S 103 98 - 107 12/31/2020 DTL mmol/L 3:18 PM CDT Bicarbonate, S 26 22 - 29 12/31/2020 DTL mmol/L 3:18 PM CDT Anion Gap 8 7 - 15 12/31/2020 DTL 3:18 PM CDT BUN (Blood Urea 15 8 - 24 12/31/2020 DTL Nitrogen), S mg/dL 3:18 PM CDT Creatinine 0.76 0.74 - 12/31/2020 DTL 1.35 mg/dL 3:18 PM CDT eGFR-Non >90 >=60 12/31/2020 DTL Black/ mL/min/BSA 3:18 PM CDT [place]ander Comment: ----ADDITIONAL INFORMATION---- Estimated GFR calculated using the 2009 CKD_EPI creatinine equation. eGFR-Black/ >90 >=60 mL/min/BSA 2020 3:18 PM CDT DTL Comment: ----ADDITIONAL INFORMATION---- Estimated GFR calculated using the 2009 CKD_EPI creatinine equation. Calcium, Total, S 8.8 8.6 - 10.0 mg/dL 12/31/2020 3:18 PM CDT DTL Glucose, S CANCELED mg/dL 12/31/2020 2:42 PM CDT DTL Comment: Test not performed. See Fasting Glucose result. Result canceled by the ancillary. Protein, Total, S 7.5 6.3 - 7.9 g/dL 12/31/2020 3:18 P M CDT DTL Albumin, S 3.6 3.5 - 5.0 g/dL 12/31/2020 3:18 PM CDT D TL Aspartate Aminotransferase 16 8 - 48 U/L 12/31/2020 3 :18 PM CDT DTL (AST), S Alkaline Phosphatase, S 144 (H) 40 - 129 U/L 12/31/2020 3: 18 PM CDT DTL Alanine Aminotransferase (ALT), 15 7 - 55 U/L 3:18 PM CDT DTL S Bilirubin, Total, S 0.4 <=1.2 mg/dL 12/31/2020 3:18 PM CDT DTL Specimen Anatomical Collection Method Collection Time Receive d Time (Source) Location / / Volume Laterality Blood (Blood, 12/31/2020 2:23 PM 01/01/20 2:42 Venous) CDT PM CDT Deborah VillaB.S. LAB BLOOD ADD-ON Performing Organization Address [facility] Phon e Number [facility] - 200 [place], [place] [address] [place] [address] [place], [place] [id number] [place] [address] (ABNORMAL) CBC, Chemotherapy, No Alerts (12/31/2020 2:23 PM CDT) Analysis Performed At Patho logist Time Signature Hemoglobin 10.6 (L) 13.2 - 12/31/2020 [facility] 16.6 g/dL 2:35 PM CDT Platelet Count 329 (H) 135 - 317 12/31/2020 [facility] x10(9)/L 2:35 PM CDT Leukocytes 6.1 3.4 - 9.6 12/31/2020 [facility] x10(9)/L 2:35 PM CDT Neutrophils 4.09 1.56 - 12/31/2020 [facility] 6.45 2:35 PM CDT x10(9)/L Specimen Anatomical Collection Method Collection Time Receive d Time (Source) Location / / Volume Laterality Blood (Blood, 12/31/2020 2:23 PM 01/01/20 2:29 Venous) CDT PM CDT Deborah VillaB.S. LAB BLOOD ADD-ON Performing Organization Address City/[facility] Code Phon e Number [facility] - 200 [place], [place] [address] [facility] [place] [address] documented in this encounter Visit Diagnoses Diagnosis Malignant Neoplasm Of Pancreas (HCC) - P rimary Bacteremia documented in this encounter Administered Medications Inactive Administered Medications - up to 3 most recent administrations Medication Order MAR Action Action Date Dose Rate Site heparin flush 500 Units Given 12/31/2020 2:40 PM CDT 500 Units 500 Units, intra-catheter, As needed, line care, Starting on Sandra 12/31/20 at 1439, When no infusion to maintain patency: For IVAD accessed, not in use, and/or prior to hospital discharge, flush every 7 days after 0.9% preservative-free NaCL flush. For IVAD NOT accessed or used, flush every 4 weeks after 0.9% preservative-free NaCL flush. sodium chloride 0.9 % injection 10 mL Given 12/31/2020 2:39 PM CDT 10 mL 10 mL, intra-catheter, As needed, line care, Starting on Sandra 12/31/20 at 1439, When IVAD Accessed and in Use: Flush prior to and following infusion, between multiple consecutive infusions, and prior to blood sampling. sodium chloride 0.9 % injection 20 mL Given 12/31/2020 2:39 PM CDT 20 mL 20 mL, intra-catheter, As needed, line care, Starting on Sandra 12/31/20 at 1439, When IVAD Accessed and in Use: Flush post blood transfusion or post blood sampling. documented in this encounter Care Teams Supplier Quality Engineering Manager Relationship Specialty Start Date End Date Elsewhere, Pcp PCP - General Family Medicine 08/12/20 documented as of this encounter
--- OUTSIDE RECORDS SUMMARY | 2022-06-18 16:16 | XMS_ITS | Encounter Summary ---
:1965 Author Organization [facility] Address [address] [place] [address] Care Team Providers Name Role Phone Elsewhere, Pcp Primary Care Provider Unavailable Reason for Visit Reason Comments Post Hospital Follow-up Encounter Details Date Type Department Care Team Description 01/01/2021 Clinical Communication Department of [facility] Oncology in December Chanelle Pereira, Follow-up [place] [address] [address] [facility] [address] [place] [phone] Social History Tobacco Use Types Packs/Day Years [...] How often do you attend scientology or spiritism services? 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 [address] [place] [phone] (Wo rk) 06/22/2022 Infusion Oncology Maria Del Rosario Gomez APRN, Remy.N .P., M.S. [address] [place] [phone] (Wo rk) 06/29/2022 Lab Laboratory Medicine Maria Del Rosario Gomez AP RN, C.N.P., M.S. [address] [place] [phone] (Wo rk) 06/29/2022 Infusion Oncology Maria Del Rosario Gomez APRN, Remy.N .P., M.S. [address] [place] [phone] (Wo rk) documented as of this encounter Results SARS CoV-2 RNA, PCR, Varies Asymptomatic (01/11/2021 1:55 PM CDT) [facility] Method Time Signature SARS CoV-2 Swab, 01/11/2021 DTL RNA, PCR, Nasopharynx 6:19 PM CDT Source SARS CoV-2 Undetected Undetected 01/11/2021 DTL RNA, PCR 6:19 PM CDT Comment: SARS-CoV-2 RNA absent. This [...] Drug Administration an d is used per social service worker's instructions. Performance characteristics were verified by [facility] in a manner consistent with CLIA requirements. Visit the CDC website: https://www.cdc.g ov/coronavirus/ for the most recent guidelines on Coron avirus testing. Fact Sheet for Healthcare Providers: https://www.fda.gov/media/174130/downloa d Fact Sheet for Patients: https://www.fda.gov/media/412758/downloa d Specimen Anatomical Collection Method Collection Time Receive d Time (Source) Location / / Volume Laterality Varies 01/11/2021 1:55 PM 2:38 (Nasopharynx) CDT PM CDT December Lisa Roca, M.S. LAB MICROBIOLOGY - [facility] ORDERABLES Performing Organization Address City/State/ZIP Code Phon e Number [facility] - [address] [place], [place] [address] [facility] [place] [address] Laboratories-[facility] [address] documented in this encounter Visit Diagnoses Diagnosis Pain Cancer Associated - Primary documented in this encounter Care Teams Director Of Convention Services Relationship Specialty Start Date End Date Elsewhere, Pcp PCP - General Family Medicine 08/12/20 documented as of this encounter
--- OUTSIDE RECORDS SUMMARY | 2022-06-18 16:16 | XMS_ITS | Encounter Summary ---
:1965 Author Organization [facility] Address [address] [place] [address] Care Team Providers Name Role Phone Elsewhere, Pcp Primary Care Provider Unavailable Encounter Details Date Type Department Care Team Description 01/08/2021 Clinical Communication Department of Radiation Sandra Silva, Oncology in [place], Chanelle, Ph. D. [address] [place] [phone] Social History Tobacco Use Types Packs/Day Years [...] How often do you attend caodaism or tenriism services? 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 [address] [place] [phone] (Wo rk) 06/22/2022 Infusion Oncology Maria Del Rosario Gomez APRN, C.N .P., M.S. [address] [place] [phone] (Wo rk) 06/29/2022 Lab Laboratory Medicine Maria Del Rosario Gomez AP RN, C.N.P., M.S. [address] [place] [phone] (Wo rk) 06/29/2022 Infusion Oncology Maria Del Rosario Gomez APRN, C.N .P., M.S. [address] [place] [phone] (Wo rk) documented as of this encounter Visit Diagnoses Not on filedocumented in this encounter Care Teams Imagery Analyst Relationship Specialty Start Date End Date Elsewhere, Pcp PCP - General Family Medicine 08/12/20 documented as of this encounter
--- OUTSIDE RECORDS SUMMARY | 2022-06-18 16:17 | XMS_ITS | Encounter Summary ---
:[address] [facility] Address [address] [place] [address] Care Team Providers Name Role Phone Elsewhere, Pcp Primary Care Provider Unavailable Reason for Visit Appointment Request (Routine) - Closed Specialty Diagnoses / Referred By Contact Referred To Procedures Contact Gastroenterology and Diagnoses Pancreatitis Chronic Recurrent (HCC) Hepatology Referral ID Status Reason Start Date Expiration Date Visits Requ ested Visits Authorized [id number] Closed 12/04/2020 12/04/2021 1 1 Encounter Details Date Type Department Care Team Description 12/04/2020 Virtual Visit Division of Ernesto Curiel Abdomina juan Pain Gastroenterology in [place], [place] [address] [place] [address] [address] [place] [phone] Social History Tobacco Use Types Packs/Day Years [...] How often do you attend adventism or yarsani services? 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 - 12/04/2020 4:00 PM CDT Telephone Note I spoke with Mr Campbell to follow up due to complaints of abdominal pain. Pt reports that he actually was already feeling better because he took an enema. He states that he has not been taking the miralax and senna as frequently as prescribed. He states that he was only taking miralax prn and senna veryrarely. His abd pain was likely 2/2 to constipation from opiate medications for his cancer related pain. He will start a bowel regimen of miralax bid and add on senna as needed to make sure that he hasat least 1 soft formed bowel movement daily. Ernesto Curiel MD [facility] Answers for HPI/ROS submitted by the patient on 11/09/2020 Fatigue: Yes Weight loss of more than 10 pounds: Yes Loss of appetite: Yes No eye issues: Yes No ENT issues: Yes No heart issues: Yes No respiratory issues: Yes Abdominal (belly) pain or cramping: Yes No muscle/bone issues: Yes No skin issues: Yes Weakness in arms and/or legs: Yes Little interest or pleasure in doing things: Yes Feeling down, depressed, or hopeless: Yes Feeling nervous, anxious or on edge: Yes Not being able to stop or control worrying: Yes No blood/lymph issues: Yes No urinary/reproductive issues: Yes documented in this encounter Plan of Treatment Upcoming Encounters Date Type Specialty Care Team Description 06/22/2022 Lab Laboratory Medicine Maria Del Rosario Gomez AP RN, C.N.P., M.S. [address] [place] [phone] (Wo rk) 06/22/2022 Infusion Oncology Maria Del Rosario Gomez APRN, C.N .P., M.S. [address] [place] [phone] (Mj godoy) 06/29/2022 Lab Laboratory Medicine [facility] RN, C.N.P., M.S. [address] [place] [phone] (Mj godoy) 06/29/2022 Infusion Oncology Maria Del Rosario Gomez APRN, C.N .P., M.S. [address] [place] [phone] (Mj godoy) documented as of this encounter Visit Diagnoses Diagnosis Abdominal Pain documented in this encounter Care Teams Candy Separator Hard Relationship Specialty Start Date End Date Elsewhere, Pcp PCP - General Family Medicine 08/12/20 documented as of this encounter
--- OUTSIDE RECORDS SUMMARY | 2022-06-18 16:17 | XMS_ITS | Encounter Summary ---
:1965 Author Organization [facility] Address [address] [place] [address] Care Team Providers Name Role Phone Elsewhere, Pcp Primary Care Provider Unavailable Encounter Details Date Type Department Care Team Description 12/11/2020 Ancillary Procedure Department of Ky Lewis, Radiology in Georgina Love M.D. [place], [place] [address] [facility] [address] [place] [phone] (Wo rk) Social History Tobacco Use Types [...] How often do you attend protestant or advent services? 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 [address] [place] [phone] (Wo rk) 06/22/2022 Infusion Oncology AnnonaMaria Del Rosario pierre APRN, Remy.N .P., M.S. [address] [place] [phone] (Wo rk) 06/29/2022 Lab Laboratory Medicine Maria Del Rosario Gomez AP RN, C.N.P., M.S. [address] [place] [phone] (Wo rk) 06/29/2022 Infusion Oncology Maria Del Rosario Gomez APRN, Remy.N .P., M.S. [address] [place] [phone] (Wo rk) documented as of this encounter Procedures Procedure Name Priority Date/Time Associated Comments Diagnosis INTERPRETATION OF RAD - Routine 12/11/2020 8:54 Result s for OUTSIDE CT ABDOMEN (most inpatients AM CDT this procedure AND OR PELVIS and all are in the outpatients) results section. documented in this encounter Results Interpretation of Outside CT Abdomen and or Pelvis (12/11/2020 8:54 AM CDT) Anatomical Region Laterality Modality Abdomen, Pelvis, Abdominal RST LOS, Abdominal ARZ LOS, N/A Computed Tomography Abdominal FLA LOS, Other Specimen (Source) Anatomical Collection Method Collection Time Re ceived Time Location / / Volume Laterality 12/11/2020 9:09 AM CDT Impressions 12/11/2020 9:58 AM CDT 1. Overall improvement in complex multiloculated walled off fluid collections/abscesses with 5 trans[address] pigtail stents in place. 2. No significant change in the pancreat ic mass. 3. Short segment occlusion in the mid po rtion of the biliary stent. Narrative 12/11/2020 9:58 AM CDT EXAM: ??INTERPRETATION OF OUTSIDE CT ABDOMEN AND OR PELVIS COMPARISON: ??11/26/2020 FINDINGS: ??CT of the abdomen and pelvis 12/11/2020 with intravenous contrast. 5 transgastric pigtail stents are in erasto ce with overall improvement in the complex multiloculated walled off fluid collection adjacent to the pancreas and descending colon. The largest residual p ocket is best seen on coronal series 4 image 39, measuring 4.2 x 3.5 x 2.3 cm. A subdiaphragmatic pocket measures up to 2.9 cm, versus 3.5 cm previously (series 2 image 24). No other significant change from 021. Atelectasis in the lung bases. 2.4 x 2.5 cm mass in the pancreatic uncinate process (series 2 image 51). Biliary stent with associated intrahepat ic biliary air. Short segment occlusion of the mid stent (coronal series 4 image 34). Large volume of stool. Nonobstructed bow el. 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 Atelectasis in the lung bases with uncha nged tiny right sided nodules. Procedure Note Anya Estrada M.D. - 12/11/2020Fo rmatting of this note might be different from the original. EXAM: INTERPRETATION OF OUTSIDE CT ABDOM EN AND OR PELVIS COMPARISON: 11/26/2020 FINDINGS: CT of the abdomen and pelvis 0 12/11/2020 with intravenous contrast. 5 transgastric pigtail stents are in erasto ce with overall improvement in the complex multiloculated walled off fluid collection adjacent to the pancreas and descending colon. The largest residual p ocket is best seen on coronal series 4 image 39, measuring 4.2 x 3.5 x 2.3 cm. A subdiaphragmatic pocket measures up to 2.9 cm, versus 3.5 cm previously (series 2 image 24). No other significant change from 021. Atelectasis in the lung bases. 2.4 x 2.5 cm mass in the pancreatic uncinate process (series 2 image 51). Biliary stent with associated intrahepat ic biliary air. Short segment occlusion of the mid stent (coronal series 4 image 34). Large volume of stool. Nonobstructed bow el. 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 Atelectasis in the lung bases with uncha nged tiny right sided nodules. IMPRESSION: 1. Overall improvement in complex multil oculated walled off fluid collections/abscesses with 5 [address] pigtail stents in place. 2. No significant change in the pancreat ic mass. 3. Short segment occlusion in the mid po rtion of the biliary stent. Georgina Lewis M.D. IMG CT PROCEDURES documented in this encounter Visit Diagnoses Not on filedocumented in this encounter Additional Health Concerns Infection Onset Date Last Indicated Resolved Time COVID19 Pending 12/11/2020 12/11/2020 12/11/2020 9:32 AM CDT documented as of this encounter Care Teams Senior Developer Relationship Specialty Start Date End Date Elsewhere, Pcp PCP - General Family Medicine 08/12/20 documented as of this encounter
--- OUTSIDE RECORDS SUMMARY | 2022-06-18 16:17 | XMS_ITS | Encounter Summary ---
:1965 Author Organization [facility] Address [address] [place] [address] Care Team Providers Name Role Phone Elsewhere, Pcp Primary Care Provider Unavailable Encounter Details Date Type Department Care Team Description 12/11/2020 Ancillary Procedure Department of Gastroenterology Social History [...] often do you attend oriental orthodox or advent services? 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 [address] [place] [phone] (Wo jayne) 06/22/2022 Infusion Oncology Maria Del Rosario Gomez APRN, Remy.N .P., M.S. [address] [place] [address] [phone] (Wo rk) 06/29/2022 Lab Laboratory Medicine Maria Del Rosario Gomez AP RN, C.N.P., M.S. [address] [place] [address] [phone] (Wo rk) 06/29/2022 Infusion Oncology Maria Del Rosario Gomez APRN, Remy.N .P., M.S. [address] [place] [phone] (Wo rk) documented as of this encounter Procedures Procedure Name Priority Date/Time Associated Comments Diagnosis GASTROENTEROLOGY IMAGE Routine 12/11/2020 2:00 Re sults for this EXAM PM CDT procedure are i n the results section. documented in this encounter Results ERCP-Gastroenterology Image Exam (12/11/2020 2:00 PM CDT) Specimen (Source) Anatomical Collection Method Collection Time Re ceived Time Location / / Volume Laterality 12/11/2020 2:00 PM CDT Narrative [facility] - 12/11/2020 3:52 PM CDT This order has been created [...] on filedocumented in this encounter Care Teams Jockey Room Custodian Relationship Specialty Start Date End Date Elsewhere, Pcp PCP - General Family Medicine 08/12/20 documented as of this encounter
--- OUTSIDE RECORDS SUMMARY | 2022-06-18 16:17 | XMS_ITS | Encounter Summary ---
:1965 Author Organization [facility] Address [address] [place] [address] Care Team Providers Name Role Phone Elsewhere, Pcp Primary Care Provider Unavailable Reason for Visit Auth/Cert Specialty Diagnoses / Procedures Referred By Contact Refer red To Contact Diagnoses Obstruction Intestinal (HCC) Abdominal pain Procedures ETU Referral ID Status Reason Start Date Expiration Date Visits Requ ested Visits Authorized [id number] 1 1 Encounter Details Date Type Department Care Team Description 12/11/2020 Anesthesia Event Division of Gastroenterology Hannah mckeon APRN, MAINTENANCE PLANNING CLERK [address] [place] [phone] in [facility] Amina Ruiz M.D. [address] [place] [phone] [address] [place] [address] Anesthesia Record Procedure Summary Procedure Name Responsible Anesthesiologist Anesthesia Start Ti me Anesthesia Stop Time ERCP Hannah Hughes APRN, MAINTENANCE PLANNING CLERK 12/11/20 1442 12/11/20 1 529 Events Date Time Event Comment 12/11/2020 1442 An Start Machine/Equipmen t Checked Infection Precautions Foll owed Procedure/Site Verified NPO Sta tus Verified Supine Standard ASA Mon itors Applied 1447 An Induction 1451 An Intubation 1456 Turnover to Proceduralist 1458 Proc Start 1512 Proc Fin 1516 Turnover to ANE Staff 1522 Airway Removal Criteria Met 1522 Extubation/Airway Removed 1523 an stop data 1529 An End I completed my h andoff to the receiving staff during [facility] we 1. Identified the patient 2. [...] mcg/mL 50 mcg lidocaine 2% (mg) injection 60 mg propofol 10 mg/mL 150 mg propofol 10 mg/mL infusion 211.14 mg succinylcholine 20 mg/mL injection 100 mg phenylephrine 100 mcg/mL injection 100 mcg ondansetron 4 mg/2 mL injection 4 mg [...] 1055 by 0000 by [facility] Placement R.N. Time: 1055 (placed at outside facility); Existing LDA Placed by: Other (Comment); Catheter Size: 20 G; Orientation: Left; Location: Antecubital; Removal Date: 02/01/21; Removal Reason: No longer in place ETT Placement Date: 12/11/20; 12/11/20 1451 by 12/11 1522 by Placement Time: 145 Hannah Hughes APRN, Hannah Hughes APRN, (created via procedure MAINTENANCE PLANNING CLERK MAINTENANCE PLANNING CLERK documentation); Mask Ventilation: Easy mask; Type: Standard ETT; Single Lumen Tube Size: 7.5 mm; Cuffed: Yes; Location: Oral; Grade View: Grade 1; Insertion Attempts: 1; Placement Verification: Bilateral breath sounds, Positive ETCO2, Symmetrical chest wall movement; Removal Date: 12/11/20; Removal Time: 152 documented in this encounter Social History Tobacco [...] How often do you attend lutheran or faith services? 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 documented as of this encounter OR Notes Anesthesia Postprocedure Evaluation - Hannah Hughes APRN, CRNA - 12/11/2020 3:30 PM CDT Patient: Adam Campbell Procedure Summary Date: 12/11/20 Room / Location: Division of Gastroenterology in [place], [place] Anesthesia Start: 1442 Anesthesia Stop: 1529 Procedure: ERCP Diagnosis: Scheduled Providers: Sharifa Clark APRN, CRNA Responsible Provider: Hannah Hughes APRN, CRNA Anesthesia Type: general ASA Status: 3 Anesthesia Type: general Last vitals Vitals Value Taken Time BP 101/82 12/11/20 1528 Temp 36.6 ??C 12/11/20 1528 Pulse 95 12/11/20 1528 Resp 17 12/11/20 1530 SpO2 97 % 12/11/20 1528 Vitals shown include unvalidated device data. Please [...] Hydration status: euvolemic Anesthesia Procedure Notes - Hannah Hughes APRN, CRNA - 12/11/2020 3:06 PM CDT Associated Order(s): Airway Airway Date/Time: 12/11/2020 2:51 PM Performed by: Hannah Hughes APRN, CRNA Authorized by: Hannah Hughes APRN, CRNA Patient location during procedure: OR / Procedure Area PROCEDURE DETAILS: Mask difficulty assessment: easy mask Final airway type: video laryngoscope Laryngeal Manipulation: no Final best view of glottic structures - Cormack/Lehane Score: grade 1 ETT location: oral VL device: glide scope Benton scope blade size: 4 Adult tube size: 7.5 Adult ETT distance at teeth/gum: 23 Oral tube type: standard ETT Cuffed: yes Number of attempt to successful placement: 1 Airway confirmation: bilateral breath sounds, positive ETCO2 and bilateral chest rise Other previous techniques attempted: none PRE PROCEDURE DETAILS: Pre evaluation for airway management: procedure Urgency: elective Preoxygenation: bag valve mask SEDATION / ANESTHESIA Anesthesia method: anesthesia POST PROCEDURE DETAILS: Procedure outcome: successful Airway event: no complications Anesthesia Preprocedure Evaluation - Hannah Hughes APRN, CRNA - 12/11/2020 2:30 PM CDT Preprocedure Anesthesia & H&P Assessment Procedure Summary Date/Time: 12/11/20 1315 Scheduled providers: Sharfia Clark APRN, CRNA Procedure: ERCP Location: Division of Gastroenterology in [place], [place] Pertinent components of the patient's history including current problem list, medical history, surgical history, family history, social history, medications and allergies were reviewed. Present illnessand pre-op diagnosis were confirmed. The planned surgery / procedure was verified with the patient /legal guardian. The patient's general health condition remains unchanged RELEVANT COMORBID CONDITIONS ANESTHESIA (within normal limits) GENETICS (+) Hyponatremia GI (+) Gastroesophageal Reflux [...] Constitutional Assessment: Thin General State of Health:: calm Neurological Normal Dental Normal Abdomen Normal Musculoskeletal Normal Skin Normal ASSESSMENT / PLAN ANESTHESIA PLAN ASA: 3 Anesthesia Plan: general Patient seen and allergies reviewed, anesthesia plan and risks discussed directly with patient /legal guardian or through an diplomatic interpreter. Risks/Benefits/Alternatives of Blood transfusion discussed with patient [...] Gomez AP RN, C.N.P., M.S. [address] [place] [phone] ([place]) 06/22/2022 Infusion Oncology Maria Del Rosario Gomez APRN, C.N .P., M.S. [address] [place] [phone] ([place]) 06/29/2022 Lab Laboratory Medicine Maria Del Rosario Gomez AP RN, C.N.P., M.S. [address] [place] [phone] ([place]) 06/29/2022 Infusion Oncology Maria Del Rosario Gomez APRN, C.N .P., M.S. [address] [place] [phone] ([place]) documented as of this encounter Procedures Procedure Name Priority Date/Time Associated Comments Diagnosis LDA ANE ENDOTRACHEAL Routine 12/11/2020 3:06 PM R esults for this AIRWAY CDT procedure are i n the results section. documented in this encounter Results LDA ANE ENDOTRACHEAL AIRWAY (12/11/2020 3:06 PM CDT) Narrative Hannah Hughes APRN, CRNA - 12/11/2020 3:06 PM CDT Hannah Hughes APRN, CRNA ? 12/11/2020 ??3:07 PM Airway Date/Time: 12/11/2020 2:51 PM Performed by: Hannah Hughes APRN, CRNA Authorized by: Hannah Hughes APRN, CRNA Patient location during procedure: OR / Procedure Area PROCEDURE DETAILS: Mask difficulty assessment: easy mask Final airway type: video laryngoscope Laryngeal Manipulation: no ?? Final best view of glottic structures - Cormack/Lehane Score: grade 1 ETT location: oral VL device: glide scope Benton scope blade size: 4 Adult tube size: 7.5 Adult ETT distance at teeth/gum: 23 Oral tube type: standard ETT Cuffed: yes Number of attempt to successful placemen t: 1 Airway confirmation: bilateral breath so unds, positive ETCO2 and bilateral chest rise Other previous techniques attempted: non e PRE PROCEDURE DETAILS: Pre evaluation for airway management: pr ocedure Urgency: elective Preoxygenation: bag valve mask SEDATION / ANESTHESIA Anesthesia method: anesthesia POST PROCEDURE DETAILS: ? Procedure outcome: successful ?? Airway event: no complications Hannah Hughes APRN, CRNA ANESTHESIA ORDERABLES documented in this encounter Visit Diagnoses Not on filedocumented in this encounter Administered Medications Inactive Administered Medications - up to 3 most recent administrations Medication Order MAR Action Action Date Dose Rate Site fentaNYL injection (SUBLIMAZE) Given 12/11/2020 2:47 PM CDT 50 mcg intravenous, As needed, Starting on Mon12/11/20 at 1447, Anesthesia Intra-op lactated ringers New Bag 12/11/2020 2:42 PM CDT intravenous, Continuous Infusion: Per Instructions PRN, Starting on Mon12/11/20 at 1442, Anesthesia Intra-op lidocaine (PF) (cardiac) injection Given 12/11/2020 2:47 PM CDT 60 mg intravenous, As needed, Starting on Mon12/11/20 at 1447, Anesthesia Intra-op ondansetron (PF) injection (ZOFRAN) Given 12/11/2020 3:12 PM CDT 4 mg intravenous, As needed, Starting on Mon12/11/20 at 1512, Anesthesia Intra-op phenylephrine injection Given 12/11/2020 3:10 PM CDT 100 mcg intravenous, As needed, Starting on Mon12/11/20 at 1510, Anesthesia Intra-op propofol 10 mg/mL infusion New Bag 12/11/2020 2:47 115 mcg/kg/min 46.9 mL/hr (DIPRIVAN) PM CDT intravenous, Continuous Infusion: Per Instructions PRN, Starting on Mon12/11/20 at 1447, Anesthesia Intra-op propofoL injection (DIPRIVAN) Given 12/11/2020 2:47 PM CDT 150 mg intravenous, As needed, Starting on Mon12/11/20 at 1447, Anesthesia Intra-op succinylcholine (PF) injection (ANECTINE ) Given 12/11/2020 2:47 PM CDT 100 mg intravenous, As needed, Starting on Mon12/11/20 at 1447, Anesthesia Intra-op documented in this encounter Care Teams Policy Manager Relationship Specialty Start Date End Date Elsewhere, Pcp PCP - General Family Medicine 08/12/20 documented as of this encounter
--- OUTSIDE RECORDS SUMMARY | 2022-06-18 16:17 | XMS_ITS | Encounter Summary ---
:1965 Author Organization [facility] Address [address] [place] [address] Care Team Providers Name Role Phone Elsewhere, Pcp Primary Care Provider Unavailable Reason for Referral Outpatient (Routine) - Closed Specialty Diagnoses / Procedures Referred By Contact Refer red To Contact Oncology Deborah Murray M.B.B.S . [address] [phone] Referral ID Status Reason Start Date Expiration Date Visits Requ ested Visits Authorized [id number] Closed 12/14/2020 12/14/2021 1 1 utpatient (Routine) - Closed Specialty Diagnoses / Procedures Referred By Contact Refer red To Contact General Surgery Diagnoses Malignant Neoplasm Of Pancreas (HCC) Deborah Murray M.B.B.S. [address] [phone] Referral ID Status Reason Start Date Expiration Date Visits Requ ested Visits Authorized [id number] Closed 12/14/2020 12/14/2021 1 1 Scheduling Instructions Return to see Dr. Travis Reason for Visit Outpatient (Routine) - Closed Specialty Diagnoses / Procedures Referred By Contact Refer red To Contact Oncology Deborah Murray M.B.B.S . [address] [place] [phone] Referral ID Status Reason Start Date Expiration Date Visits Requ ested Visits Authorized [id number] Closed 12/04/2020 12/04/2021 1 1 Encounter Details Date Type Department Care Team Description 12/14/2020 Office Visit Department of Oncology Deborah Murray Malig nant Neoplasm Of in [facility] Pancreas (HCC) (Primary [place] 200 [facility] Dx) 200 [place] [phone] Social History Tobacco Use Types Packs/Day Years [...] How often do you attend yarsanism or nondenominational services? 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 - 12/14/2020 2:40 PM CDT CHIEF COMPLAINT/PURPOSE OF VISIT: Localized pancreas cancer, borderline resectable ?? Ongoing pancreatitis with infected necrosis CURRENT TREATMENT/MANAGEMENT PLAN Received 1 dose of gemcitabine plus Abraxane in early October 2020 complicate by pancreatitis. Treatment on hold currently. PRIMARY CARE PHYSICIAN ELSEWHERE, PCP REQUESTING PROVIDER Deborah Murray M.B.B.S. [address] [place] [address] LOCAL ONCOLOGIST No care steam gigger to display PRIMARY GUATAY ONCOLOGIST Deborah Murray M.B.B.S. HISTORY OF PRESENT [...] discontinued prior to discharge. 10/16/2020 - Chemotherapy Gemcitabine / PACLitaxel Protein - Bound Start Date: 10/16/2020 INTERVAL HISTORY: Mr. Campbell returns today for evaluation. He was last seen on November 06, 2020 in Medical Oncology. Since then, he had ERCP and necrosectomy on 11/27/2020 with drainage of some pus. Unfortunately, he later developed abdominal pain that led to hospitalization from December 11 to December 12, 2020 for biliary Re obstruction. He underwent an ERCP on December 11, 2020 when the biliary tree was swept and clots, debris, mucus and sludge were found. The stenosed portion of the stent was dilated and a plastic stent wasplaced over. He was treated with ertapenem and transition to oral ciprofloxacin and Flagyl. He is supposed to finish his oral antibiotic today. It is recommended that he will repeat ERCP in 6-8 weeks to exchange of plastic stent and perform serving of the biliary metal stent if needed. ROS: Pertinent items are noted in HPI; all other review of systems were negative. No data recorded VITAL SIGNS: There were no vitals filed for this visit. PHYSICAL EXAM Vitals signs reviewed. Constitutional General: He is not in acute distress. Appearance: He is well-developed. He is not toxic-appearing. Eyes General: No scleral icterus. Conjunctiva/sclera: Conjunctivae normal. Cardiovascular Rate and Rhythm: Normal rate. Pulmonary Effort: Pulmonary effort is normal. No respiratory distress. Abdominal Palpations: Abdomen is soft. Musculoskeletal Right lower leg: No edema. Left lower leg: No edema. Skin Coloration: Skin is not jaundiced. Neurological Mental Status: He is alert and oriented to person, place, and time. DIAGNOSTICS: I reviewed the imaging studies and agree with the interpretation as recorded. I reviewed the pertinent laboratory and diagnostic data. ASSESSMENT/PLAN: #1 Malignant Neoplasm Of Pancreas (HCC) Mr. Campbell is a 55 y.o. male with borderline resectable pancreas cancer and history of pancreatitis and peripancreatic abscess. Since last visit, patient repeat ERCP with drainage of the pus. His CT scan performed on December 11, 2020 showed improvement in the complex multiloculated walled off fluid collect ion/abscess. There is no significant change in the pancreas mass. The results of his blood tests today did not show leukocytosis or hyperbilirubinemia. He feels well be ECOG performance status of 1. I instructed him to complete his course of oral antibiotic as per inpatient team instruction. Patient has questions about surgical resectability and the timing. He was last seen by Dr. Travis in August 2020 when he was deemed not a surgical candidate due to ongoing pancreatitis. We will plan for patient to see Dr. Travis for re- evaluation. We will plan to see the patient back in 2-3 weeks for re-evaluation. If surgery remains not an option and he does not have evidence of active infection, wemay consider proceeding with gemcitabine monotherapy. I also had the opportunity to discuss the casewith Ms. Fior Aranda from Infectious Disease. Patient was given opportunity to ask questions, and expressed understanding of the discussion above. PATIENT EDUCATION Ready to learn, no apparent learning barriers were identified; learning preferences include listening. Explained diagnosis and treatment plan; patient expressed understanding of the content. ADMINISTRATIVE BILLING I personally spent a total 25 minutes on the evaluation, development of the management plan, reviewing and setting of the chemotherapy plan, discussion/education and coordination of care as described above. This include [id number]-iy-vhbt and non irbt-be-yzas time. documented in this encounter Plan of Treatment Upcoming Encounters Date Type Specialty Care Team Description 06/22/2022 Lab Laboratory Medicine Maria Del Rosario Gomez AP RN, C.N.P., M.S. [address] [place] [phone] (Wo rk) 06/22/2022 Infusion Oncology Maria Del Rosario Gomez APRN, C.N .P., M.S. [address] [place] [phone] (Wo rk) 06/29/2022 Lab Laboratory Medicine Maria Del Rosario Gomez AP RN, C.N.P., M.S. [address] [place] [phone] (Wo rk) 06/29/2022 Infusion Oncology Maria Del Rosario Gomez APRN, C.N .P., M.S. [address] [place] [phone] (Wo rk) Scheduled Referrals Name Type Priority Associated Diagnoses Order S [facility] General Surgery - Outpatient Referral Routine Malignant Neopla sm Expected: Pancreas consult Of Pancreas (HCC) 2020 (clinic) (Approximate), Expires: 12/15/2023 Oncology office Outpatient Referral Routine Expec sally: visit (clinic) 12/28/2020 (Approximate), Expires: 12/15/2023 documented as of this encounter Results Carbohydrate Antigen 19-9 (CA 19-9) (12/31/2020 2:23 PM CDT) athologist Signature Carbohydrate Ag 8 <35 U/mL 12/31/2020 [facility] 19-9, S 7:02 PM CDT Comment: ----ADDITIONAL INFORMATION---- The testing method is an immunoenzymatic assay manufactured by [employer] and performed on the OptiniI 800. ? Values obtained with different assay [...] 01/01/20 6:05 Venous) CDT PM CDT Deborah uRssoSRiaz LAB BLOOD ADD-ON Performing Organization Address City/[facility] Phon e Number [facility] [address] [place], [place] [address] [facility] [place] [address] Laboratory Medicine and Pathology [address] [place] Glucose, Fasting (12/31/2020 2:23 PM CDT) athologist Signature Glucose, P 84 70 - 100 12/31/2020 D[facility] mg/dL 3:15 PM CDT Last Intake 7 hr 12/31/2020 [facility] 2:41 PM CDT Specimen Anatomical Collection Method Collection Time Receive d Time (Source) Location / / Volume Laterality Blood (Blood, 12/31/2020 2:23 PM 01/01/20 2:41 Venous) CDT PM CDT Deborah RussoSRiaz LAB BLOOD NON ADD-ON Performing Organization Address City/[facility] Phon e Number [facility] - [address] [place], [place] [address] [facility] [place] [address] Laboratories-[facility] 200 [facility] (ABNORMAL) Comprehensive Metabolic Panel (12/31/2020 2:23 PM CDT) P athologist Signature Potassium, S 3.8 3.6 - 5.2 12/31/2020 [...] 12/31/2020 [facility] Black/ mL/min/BSA 3:18 PM CDT Lebanese Comment: ----ADDITIONAL INFORMATION---- Estimated [...] Aminotransferase (ALT), 15 7 - 55 U/L 021 3:18 PM CDT DTL S Bilirubin, Total, S 0.4 <=1.2 mg/dL 12/31/2020 3:18 PM CDT DTL Specimen Anatomical Collection Method Collection Time Receive d Time (Source) Location / / Volume Laterality Blood (Blood, 12/31/2020 2:23 PM 01/01/20 2:42 Venous) CDT PM CDT Deborah VillaBRiazS. LAB BLOOD ADD-ON Performing Organization Address City/State/ZIP Code Phon e Number [facility] - [address] [place], [place] [address] [facility] [place] [address] [facility] [address] [facility] (ABNORMAL) CBC, Chemotherapy, No Alerts (12/31/2020 2:23 [...] Laterality Blood (Blood, 12/31/2020 2:23 PM 01/01/20 21 2:29 Venous) CDT PM CDT Deborah RussoS. LAB BLOOD ADD-ON Performing Organization Address City/State/ZIP Code Phon e Number [facility] - [address] [place] [phone] [facility] [place] [address] Laboratories-[facility] [address] [facility] documented in this encounter Visit Diagnoses Diagnosis Malignant Neoplasm Of Pancreas (HCC) - P rimary documented in this encounter Care Teams Rn Ent Relationship Specialty Start Date End Date Elsewhere, Pcp PCP - General Family Medicine 08/12/20 documented as of this encounter
--- OUTSIDE RECORDS SUMMARY | 2022-06-18 16:17 | XMS_ITS | Encounter Summary ---
:1965 Author Organization [facility] Address [address] [place] [address] Care Team Providers Name Role Phone Elsewhere, Pcp Primary Care Provider Unavailable Reason for Visit Reason Comments Abdominal Pain Auth/Cert Specialty Diagnoses / Procedures Referred By Contact Refer red To Contact Diagnoses Obstruction Intestinal (HCC) Abdominal pain Procedures ETU Referral ID Status Reason Start Date Expiration Date Visits Requ ested Visits Authorized [id number] 1 1 Encounter Details Date Type Department Care Team Description 12/11/2020 - Hospital Encounter [facility] Georgina Carnes M.D. [address] [place] [address] Obstruction 12/12/2020 [facility] Tulio Neves M.B.B.S., M.S. [address] [place] [address] Intestinal (HCC) [facility], (Primary Dx) [facility], Sixth Floor [address] [place] [phone] Social History Tobacco Use Types Packs/Day Years [...] How often do you attend muslim or judaism services? 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 - 12/12/2020 8:54 AM CDT DISCHARGE SUMMARY BRIEF OVERVIEW Discharge Provider: Tulio Neves M.B.BRiazS., M.S. Primary Care Providers: Pcp, Elsewhere (General) No address on file Discharge Provider Team: [facility]) [facility] Gastroenterology A Admission Date: 12/11/2020 Discharge Date: 12/12/20 PRINCIPAL DIAGNOSIS Obstruction Common Bile Duct SECONDARY DIAGNOSES Principal Problem (Resolved): Obstruction Common Bile Duct Active Problems: Abdominal Pain Gastroesophageal Reflux Disease NOS Malignant Neoplasm Of Pancreas (HCC) Pseudocyst Pancreas (HCC) Pain Cancer Associated DISCHARGE DISPOSITION Home or Self Care [1] ACTIVE ISSUES REQUIRING FOLLOW UP For Patient: Take ciprofloxacin and metronidazole for 2 days to complete a 3 day course of antibiotics following biliary drainage (last dose on 12/14/2020). For Provider: Repeat ERCP in 6-8 weeks to exchange plastic biliary stent placed 12/11/2020 and perform further sweeping of the biliary metal stent if clinically indicated. OUTPATIENT FOLLOW UP Scheduled Appointments 12/14/2020 1:30 PM [facility] Infusion Therapy 12/14/2020 2:40 PM Deborah Murray M.B.B.S. Oncology For appointment details refer to your Patient Appointment Guide. TEST RESULTS PENDING AT DISCHARGE Pending Labs Order Current Status Bacteria / Brigid Culture, Blood # 2 In process Bacteria / Brigid Culture, Blood #1 In process DETAILS OF HOSPITAL STAY REASON FOR ADMISSION Obstruction Intestinal (HCC) HOSPITAL COURSE Mr. Adam Campbell is a 55 y.o. 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 He presented with worsening abdominal pain and was found to have a biliary stent occlusion. ?? Briefly, the patient has localized pancreatic cancer with prior chemotherapy. His course has been complicated by a pseudocyst and ERCP pancreatitis, for which he has had multiple necrosectomies. 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 This was treated with ertapenem until 11/29/2020. He has had multiple stents placed. His most recent ERCP was 11/25. During thatprocedure he had a stent removed and 3 additional stents placed. The cavity contained a small amountof pus and decreased necrosis. ?? Three days prior to admission the patient developed worsening abdominal pain. Pain was located diffusely throughout the abdomen and occasionally radiated to his back. Pain was persistent despite increasing his oxycodone. He had associated poor oral intake. He denied any fevers, chills, nausea, vomiting, or hematochezia. He has had unchanged loose stool in the setting of his bowel regimen. Due to his persistence of pain he sought evaluation at an outside emergency department. ?? At the outside ED, the patient had a temperature of 99.8F, tachycardia with heart rates in the 120-130s, but stable systolic blood pressures in the 110s to 120s. Labs revealed WBC 12.8k, lactate 1.2, total bili 4.1, alk phos 964, AST 537, ALT 487, and lipase 35. CT abdomen and pelvis showed a short segment occlusion in the midportion of the biliary stent. Overall however, there was improvement in hismultiloculated walled-off fluid collection abscesses. He was given 1 g of ertapenem and 1 L of normal saline before transferring to [place] ED for further evaluation. In our ED, he was afebrile and hemodynamically stable. Repeat labs revealed a WBC of 15.6, INR 1.4, creatinine 0.7, normal lactate, Tbili 3.8, direct bili 3.8, ALT 308, AST 254, and alkaline phosphatase 761. Blood cultures were obtained. He was admitted for further management. The patient was resuscitated with additional IV fluid. He underwent ERCP 12/11 which revealed one visibly occluded biliary metal stent in the major papilla. The biliary tree was swept and clots, debris, mucus and sludge were found. There was a stenotic segment in the mid-distal third of the stent which was treated with balloon dilation and placement of a 10 Fr x 9 cm plastic stent. Liver function testsimproved. He was continued on IV ertapenem which was transitioned to ciprofloxacin and metronidazole at discharge. PERTINENT IMAGING RESULTS Interpretation Of Outside Ct Abdomen And Or Pelvis Result Date: 12/11/2020 Impression: 1. Overall improvement in complex multiloculated walled off fluid collections/abscesses with [address] in place. 2. No significant change in the pancreatic mass. 3. Short segment occlusion in the mid portion of the biliary stent. MEDICATIONS CHANGED DURING THIS HOSPITAL STAY START taking these medications Details ciprofloxacin (CIPRO) 500 mg tablet Take 1 tablet (500 mg total) by mouth 2 (two) times a day for 2 days. Qty: 4 tablet, Refills: 0 metroNIDAZOLE (FLAGYL) 500 mg tablet Take 1 tablet (500 mg total) by mouth 2 (two) times a day for 2days. Qty: 4 tablet, Refills: 0 CONTINUE these medications which have NOT CHANGED Details acetaminophen (TYLENOL) 500 mg tablet Take 1 tablet (500 mg total) by mouth every 6 (six) hours. Qty: , Refills: 0 nystatin (MYCOSTATIN) 100,000 unit/mL suspension Take 500,000 Units by mouth 4 (four) times a day asneeded. Only uses when on antibiotics ondansetron (ZOFRAN) 8 mg tablet Take 1 tablet (8 mg total) by mouth every 8 (eight) hours as neededfor nausea or vomiting. Qty: 20 tablet, Refills: 0 oxyCODONE (ROXICODONE) 10 mg IR tablet Take 1 tablet (10 mg total) by mouth every 3 (three) hours asneeded for moderate pain or score 4-6 of 10 or severe pain or score 7-10 of 10 Indication: Chronic Pain/Nonacute Pain. Refills: 0 pantoprazole (PROTONIX) 40 mg EC tablet Take 1 tablet (40 mg total) by mouth every morning before breakfast. Qty: 90 tablet, Refills: 3 polyethylene glycol (MIRALAX) 17 gram powder packet Take 1 packet (17 g total) by mouth 2 (two) times a day. Dissolve each 17 g dose in 240 mLs (8 ounces) of beverage. sennosides-docusate sodium (SENOKOT-S) 8.6-50 mg per tablet Take 3 tablets by mouth 2 (two) times a day. CONDITION AT DISCHARGE improved documented in this encounter Discharge Instructions Discharge InstructionsDenton Pimentel - 12/11/2020 9:54 AM CDT You were discharged from the [facility] Gastroenterology A Service. Please identify this service name if you call with questions after hospitalization. AttachmentsThe following attachments cannot be sent through Care Everywhere. Ciprofloxacin (By mouth) (Guatemalan)Metronidazole (By mouth) (Guatemalan)documented in this encounter Medications at Time of [...] times a 8.6-50 mg per tablet day. ciprofloxacin (CIPRO) Take 1 tablet (500 mg 4 tablet 0 12/202012/15/2020 500 mg tablet total) by mouth 2 (two) times a day for 2 days. metroNIDAZOLE (FLAGYL) Take 1 tablet (500 mg 4 tablet 0 12/15/2020 500 mg tablet total) by mouth 2 (two) times a day for 2 days. nystatin (MYCOSTATIN) Take 5 mL (500,000 40 mL 0 202012/20/2020 100,000 unit/mL Units total) by mouth suspension 4 (four) times a day as needed (while on antibiotics) for up to 8 days. Only uses when on antibiotics pantoprazole (PROTONIX) Take 1 tablet (40 mg 90 tablet 3 10/02/2021 40 mg EC tablet total) by mouth every morning before breakfast. acetaminophen (TYLENOL) Take 1 tablet (500 mg 0 1 10/16/2019 01/01/2021 500 mg tablet total) by mouth every 6 (six) hours. ondansetron (ZOFRAN) 8 Take 1 tablet (8 mg 20 tablet 0 02/0 01/202102/24/2021 mg tablet total) by mouth every 8 (eight) hours as needed for nausea or vomiting. oxyCODONE (ROXICODONE) Take 1 tablet (10 mg 0 07/202112/22/2020 10 mg IR total) by mouth every tabletIndications: 3 (three) hours as Chronic Pain/Nonacute needed for moderate Pain pain or score 4-6 of 10 or severe pain or score 7-10 of 10 Indication: Chronic Pain/Nonacute Pain. documented as of this encounter Progress Notes Tulio Neves M.B.B.S., M.S. - 12/12/2020 10:08 AM CDT Inpatient Progress Note Adam Campbell [phone] Date: 12/12/2020 I have reviewed the available records, interviewed and examined the patient. Plans for the day were discussed with the GI service team. There is no resident note from today. Subjective: Mr. Campbell is a 55 y.o. male who is admitted with Obstruction Common Bile Duct which has been relieved after he underwent ERCP, placement of another plastic stent. Objective: Temperature: [36.2 ??C-37.2 ??C] 36.4 ??C Heart Rate: [77-108] 81 Resp Rate: [11-25] 15 Blood Pressure: (97-126)/(70-85) 126/85 SpO2: [95 %-100 %] 97 % Flow Rate (L/min): [0 L/min] 0 L/min Pulse Rate: [73-108] 81 Physical Exam: General: Lying down comfortably, no acute distress Psych: Awake, alert, oriented Assessment / Plan: #1 Biliary obstruction #2 Gastroesophageal Reflux Disease NOS #3 Malignant Neoplasm Of Pancreas (HCC) #4 Pseudocyst Pancreas (HCC) #5 Abdominal pain #6 Pain Cancer Associated #7 Early cholangitis Mr. Campbell is a 55 y.o. male who is admitted with Obstruction Common Bile Duct along with leukocytosis and jaundice. He received ertapenem yesterday and continuing that today. He underwent ERCP with removal of material from his biliary stent and placement of a plastic stent within is existing biliary stent. Bilirubin has improved and leukocytosis has resolved. Plan of care: Will discharge him today with oral antibiotics for 2 more days. We will need repeat ERCP in 6-8 weeks time frame to exchange the plastic stent and perform sweeping of the biliary metal stent if needed. The patient was seen and discussed with Dr. Natividad Zavala M.D. (Gui), GI fellow on thespital service. documented in this encounter H&P Notes Tulio Neves M.B.B.S., M.S. - 12/11/2020 1:44 PM CDT Hospital Admission Note Adam Campbell [phone] Date: 12/11/2020 Chief Complaint/Reason for Admission: Biliary obstruction This is a supervisory note for Dr. Vane Chavarria M.D.. I have reviewed the available records, interviewed and examined the patient. I agree with the history, physical examination, and plan as outlined in Dr. Vane Chavarria M.D.'s admission note from today. History of Present Illness: Mr. Campbell is a 55 y.o. male who is admitted with abdominal pain and jaundice secondary to biliary obstruction in the setting of pancreatic adenocarcinoma complicated by biliary obstruction, post ERCP pancreatitis and recent infected pancreatic necrosis. He presented to the emergency room with abdominal pain and was found to be jaundiced. Imaging studies demonstrated obstructed biliary stent. Review of Systems: All other systems reviewed and negative unless mentioned in the history of present illness or problem list. History Review: I reviewed the patient's allergies, current medications, family history, medical history, social history, surgical history and problem list. Objective: Vital Signs: Temperature: [36.3 ??C-36.6 ??C] 36.3 ??C Heart Rate: [77-99] 78 Resp Rate: [12-15] 15 Blood Pressure: (105-115)/(75-83) 106/81 SpO2: [96 %-100 %] 99 % Pulse Rate: [77-120] 78 Physical Exam: General: No acute distress. Psychiatric: Awake, alert and oriented. Rest of the examination is per Dr. Vane Chavarria M.D. Assessment/Plan: #1 Biliary obstruction #2 Gastroesophageal Reflux Disease NOS #3 Malignant Neoplasm Of Pancreas (HCC) #4 Pseudocyst Pancreas (HCC) #5 Abdominal pain #6 Pain Cancer Associated #7 Early cholangitis Mr. Campbell is a 55 y.o. male who is admitted with biliary obstruction and leukocytosis leading to jaundice and elevated white blood cell count abdominal pain. He was given a dose of oral manuel him. Plan of care: Plan would be for ERCP for him to relieve the biliary obstruction will continue ertapenem in the hospital and switch to oral antibiotics at discharge. We are following up on blood cultures. The rest of the plan is per Dr. Vane Chavarria M.D.'s note from today and also discussed with Dr. Henson (Ofelia Zavala M.D., GI fellow on the Hospital service. Vane Chavarria M.D. - 12/11/2020 8:59 AM CDT Gastroenterology Service Admission Note SUBJECTIVE CHIEF COMPLAINT Abdominal Pain HISTORY OF PRESENT ILLNESS Mr. Adam Campbell is a 55 y.o. male who presents with worsening abdominal pain. His medical comorbidities are significant for pancreatic adenocarcinoma complicated by malignant biliary stenosis requiring stents, ERCP pancreatitis, and infected nonocclusive portal vein thrombosis. The patient has localized pancreatic cancer with prior chemotherapy. His course was complicated by apseudocyst and ERCP pancreatitis, for which he has had multiple necrosectomies. 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 This was treated with ertapenem until 11/29/2020. The patient additionally has had multiple stents placed. His most recent ERCP was by Dr. Simpson. During that procedure he had a stent that was partially migrated removed. The cavity contained a small amount of pus and decreased necrosis. Three additional stents were placed into the necrotic cavity through the cystotomy. Three days prior to admission the patient developed worsening abdominal pain. Pain was located diffusely throughout abdomen and occasionally radiated to his back. Pain was persistent despite increasinghis oxycodone. He had associated poor oral intake. He denied any fevers, chills, nausea, vomiting, or hematochezia. He has had unchanged loose stool in the setting of his bowel regimen. Due to his persistence of pain he sought evaluation at an outside emergency department last night. At the outside emergency department, the patient had a low-grade fever, tachycardia with heart ratesin the 120-130s, but stable systolic blood pressures in the 110s to 120s. His temperature was 99.8??F. Labs revealed WBC 12.8, lactate 1.2, total bili 4.1, alk phos 964, AST 537, ALT 487, and lipase 35. CT abdomen and pelvis showed a short segment occlusion in the midportion of the biliary stent. Overall however, there was improvement in his multiloculated walled-off fluid collection abscesses. Therewas no significant change in his pancreatic mass. He was given 1 g of ertapenem and 1 L of normal saline before transferring to [facility] ED for further evaluation. In our ED, he was afebrile and hemodynamically stable. Systolic blood pressure was 105. Repeat labs revealed a hemoglobin 9.7, platelet count 287, WBC, 15.6, INR 1.4, creatinine 0.7, normal lactate, Tbili 3.8, direct bili 3.8, ALT 308, AST 254, and alkaline phosphatase 761. Blood cultures were obtained. He was admitted for further management. Upon admission, the patient was stable and endorsed the above history. I have reviewed and updated the following: Past Medical History, Family History, Social History, andAllergies. Current Outpatient Medications on File Prior to Encounter: ??? acetaminophen (TYLENOL) 500 mg tablet, Take 1 tablet (500 mg total) by mouth every 6 (six) hours. ??? nystatin (MYCOSTATIN) 100,000 unit/mL suspension, SWISH AND SPIT 5 MLS (500,000 UNITS) IN MOUTH 4 TIMES DAILY ??? ondansetron (ZOFRAN) 8 mg tablet, Take 1 tablet (8 mg total) by mouth every 8 (eight) hours as needed for nausea or vomiting. ??? oxyCODONE (ROXICODONE) 10 mg IR tablet, Take 1 tablet (10 mg total) by mouth every 3 (three) hours as needed for moderate pain or score 4-6 of 10 or severe pain or score 7-10 of 10 Indication: Chronic Pain/Nonacute Pain. ??? oxyCODONE (ROXICODONE) 5 mg immediate release tablet, Take 5 mg by mouth 2 (two) times a day as needed for pain. ??? pantoprazole (PROTONIX) 40 mg EC tablet, [...] mouth 2 (two) times a day. ??? sodium chloride (Normal Saline Flush) 0.9 % injection, 10 mL by intra- catheter route as needed for line care. For use with PICC ??? [DISCONTINUED] nystatin (MYCOSTATIN) 100,000 unit/mL suspension, 500,000 Units. ??? [DISCONTINUED] prochlorperazine (COMPAZINE) 10 mg tablet, Every 6 Hours as needed REVIEW OF SYSTEMS Pertinent items are noted in HPI; all other review of systems was negative. OBJECTIVE VITAL SIGNS Temperature: [36.5 ??C-36.6 ??C] 36.6 ??C Heart Rate: [99] 99 Resp Rate: [12-15] 15 Blood Pressure: (105-115)/(75-82) 105/75 SpO2: [96 %-97 %] 96 % Height: [172 cm] 172 cm Weight: [68 kg] 68 kg BMI (Calculated): [23 kg/m??] 23 kg/m?? Pulse Rate: [94-120] 95 PHYSICAL EXAM Constitutional: cooperative, in no acute distress, chronically ill appearing. Eyes: EOMI. No scleral icterus. No conjunctival pallor. CV: Regular rate and rhythm. S1 and S2 normal. No murmurs, rubs, or gallops appreciated. No lower extremity edema appreciated bilaterally. Resp: Nonlabored respirations on room air. Clear to auscultation bilaterally. GI: Soft, nondistended. Normoactive bowel sounds. Mild but diffuse tenderness to palpation. Skin: Warm, dry. No visible rashes or lesions. Neuro: CN II-XII grossly intact. No focal deficits appreciated. Psych: Alert and oriented. Appropriate mood and affect. MSK: Right chest port. Incision well healing. No infection at site. DIAGNOSTICS I have reviewed the diagnostics from admission. ASSESSMENT / PLAN Mr. Campbell is a 55 year old male with medical comorbidities significant for pancreatic adenocarcinomacomplicated by malignant biliary stenosis requiring stents, ERCP pancreatitis, and infected nonocclusive portal vein thrombosis. He was admitted for management of an obstructed biliary stent. # Biliary Stent Obstruction # Pancreatic adenocarcinoma of the uncinate process # Post-ERCP necrotizing pancreatitis complicated by walled-off pancreatic necrosis, suggestive of infected pancreatic necrosis # Leukocytosis CT abdomen and pelvis demonstrated a short segment occlusion in the mid portion of the biliary stent. With leukocytosis there is additional concern for infection. Blood cultures were obtained and the patient has already received 1 L of normal saline and 1 g of ertapenem at outside ED. Plan: - Patient NPO for ERCP this afternoon - F/u Blood cultures - Continue IV Ertapenem, next dose tomorrow AM - f/u microbial studies from ERCP - Resuscitate with additonal 1L of LR # Abdominal Pain # Pain associated with malignancy - Continue home oxycodone 10 mg PRN q 3 hours - PRN IV dilaudid for breakthrough pain - Continue home bowel regimen: MiraLAX BID, Senekot 3 tablets BID # GERD - continue home pantoprazole 40 mg daily Diet: NPO Tubes/lines: PIV; Right chest port VTE prophylaxis: Held until after procedure Code status: Full Code Surrogate Decision Maker: Spouse, Shaniqua Campbell Disposition: Home Please page the Gastroenterology A service Pager at [phone] with any questions. Vane Chavarria M.D. Internal Medicine, PGY-2 Pager: [phone] documented in this encounter Nursing Notes Neyda Alexandre R.N. - 12/12/2020 10:45 AM CDT Shift Goals: Clinical Goals for the Shift: Pt will remain vitally stable Identify possible barriers to meeting goals/advancing plan of care: End of Shift Summary: Pt remained vitally stable. Pt remained safe and free from falls. Pt discharged home self care. Vital signs were taken and IV was removed. Discharge teaching was completed and allquestions were answered. Oswaldo Scott R.N. - 12/12/2020 12:26 AM CDT Shift Goals: Clinical Goals for the Shift: Pt will remain vitally stable Identify possible barriers to meeting goals/advancing plan of care: None End of Shift Summary: Patient appeared to rest comfortably overnight. MEWS 3 around 2300 but decreased to 2 later on overnight. Pt c/o headache 6/10 this morning, PRN Oxycodone given which relieved thepain to a 2/10. Problem: METABOLIC/FLUID AND ELECTROLYTES - ADULT Goal: Hemodynamic stability and optimal renal function maintained Outcome: Progressing Note: MEWS 3 overnight, notified, MEWS later decreased to a 2. David Tinsley R.N. - 12/11/2020 10:47 PM CDT Problem: PAIN - ADULT Goal: PT VERBALIZES/DEMONSTRATES ADEQUATE COMFORT LEVEL OR BASELINE Outcome: Progressing Note: Did not report pain through shift Problem: SKIN/TISSUE INTEGRITY Goal: Skin/Tissue integrity maintained or improved Outcome: Progressing Note: Up ad sam in room independently Shift Goals: Clinical Goals for the Shift: Pt will remain vitally stable throughout shift following ERCP earlier today Identify possible barriers to meeting goals/advancing plan of care: none End of Shift Summary: Pt remained stable vitally and had no complications from ERCP earlier this p.m. Pt complained of no pain and was pleasant this evening. Potential DC to home self care tomorrow if stable overnight and into tomorrow morning. Roxana Burris R.N., C.M.S.R.N. - 12/11/2020 5:04 PM CDT Problem: PAIN - ADULT Goal: PT VERBALIZES/DEMONSTRATES ADEQUATE COMFORT LEVEL OR BASELINE Outcome: Progressing Note: After ERCP with stent replacement, patient was reporting less pain. Has PRN medications available. Problem: INFECTION - ADULT Goal: Absence of infection during hospitalization Outcome: Progressing Problem: SKIN/TISSUE INTEGRITY Goal: Skin/Tissue integrity maintained or improved Outcome: Progressing Problem: SAFETY ADULT Goal: Maintain a safe environment Outcome: Progressing Note: Patient up independent in room. Uses call light appropriately Problem: DISCHARGE PLANNING Goal: Patient discharge needs identified Outcome: Progressing Note: Patient will DC home with . Likely tomorrow. Shift Goals: Patient will tolerate regular diet after procedure. Identify possible barriers to meeting goals/advancing plan of care: pain, nausea End of Shift Summary: Goal met. Rest as above. Per GI, watch overnight and assuming remains stable, should DC tomorrow [facility]SC with . documented in this encounter ED Notes Georgina Norris M.D. - 12/11/2020 8:28 AM CDT I have personally seen and examined this patient. I have fully participated in the care of this patient. I have reviewed all clinical information including history, physical exam, orders, and plan. I agree with the note of the resident. Briefly, the patient is a 55-year-old male with a past medical history significant for portal vein thrombus, pancreatic cancer status post pancreatic stent who presents to the emergency department for evaluation of abdominal pain. Patient has had abdominal pain that acutely worsened overnight he had associated chills, but no fever. He denies any nausea or vomiting he continues to pass stool and gas. Denies any urinary symptoms, chest pain, shortness of breath or cough. On exam patient is slightly tachycardic otherwise vitally stable well-appearing and in no acute distress, heart tachycardic rate with regular rhythm, lungs clear, abdomen is soft with mild diffuse tenderness without peritoneal signs, extremities warm well perfused, Skin warm and dry, neuro no focal deficits. IRP: Patient presents the emergency department for evaluation upon arrival patient is slightly tachycardic otherwise vitally stable well-appearing and in no acute distress. Outside CT scan reveals obstruction of his pancreatic stent this is likely the etiology of his symptoms. Labs were drawn he was provided fluids and antibiotics. Given tachycardia into the 130s at the outside facility he was directed tothe emergency department prior to admission. Currently his heart rate is in the low 100s otherwise well-appearing and nontoxic. I think be obstructed pancreatic stent is likely the etiology of his symptoms. Given this and his chills as well as tachycardia from the outside facility symptoms could represent cholangitis we should obtain blood cultures that I do not see were performed from the outside facility. Patient would prefer to avoid additional blood draws, prior to obtaining blood cultures will discuss with admitting team if they want additional labs. Otherwise outside labs are adequate and no need to repeat at this time. He has already received antibiotics and fluids. I think he is vitally stable to to be admitted to the GI floor. Patient agrees with the plan. ED Course as of Dec 12 1550MonDec 11, 2020 09 Previous 9.6. Hemoglobin(!): 9.7 0927 Previous 10.0. White Blood Cell Count(!): 15.6 Final Diagnoses: as of Dec 12 1550 Obstruction Intestinal (HCC) Georgina Norris M.D. 12/12/201550 Link, Cristo Wilks M.D. - 12/11/2020 7:52 AM CDT SUBJECTIVE CHIEF COMPLAINT/REASON FOR VISIT Abdominal Pain HISTORY OF PRESENT ILLNESS 55-year-old male with recent diagnosis pancreatic adenocarcinoma 07/2020 who underwent ERCP with stent placement due to malignant obstruction on 07/29, and 08/04/2020, subsequently started on chemotherapy (gemcitabine and paclitaxel on 10/16/2020) he was transferred from an outside emergency department with abdominal pain, and concern for recurrent malignant obstruction. The patient has 2-3 days of abdominal pain, which is mostly in his lower abdomen. Denies any nausea or vomiting. He continued to have bowel movements which are loose, but he is taking senna and MiraLax. Denies fevers or chills, but said he could not get warm last night. Last night night, the pain seemed more persistent so presented to his local emergency department. At the local emergency department, CT scan was obtained and showed recurrent obstruction of his biliary stent. Patient was transferred to [facility] for further evaluation and management. The patientdid receive ertapenem 1000 mg IV prior to transport this morning. Patient also received 1 L of normal saline, Dilaudid for pain. Labs revealed leukocytosis with a white count of 12.8 with neutrophil predominance. Hemoglobin 11.7 (was 9.6 on 11/26). Chemistries revealed a total bili of 4.1, direct bili3.2, AST 533, ALT 482, alk-phos 964. Lipase was negative at 35. Creatinine 0.8. Lactate 1.2. REVIEW OF SYSTEMS Constitutional: Negative for chills and fever. HENT: Negative for congestion and rhinorrhea. Eyes: Negative for discharge and visual disturbance. Respiratory: Negative for cough and shortness of breath. Cardiovascular: Negative for chest pain. Gastrointestinal: Positive for abdominal pain. Negative for diarrhea, nausea and vomiting. Genitourinary: Negative for dysuria and hematuria. Musculoskeletal: Negative for arthralgias and myalgias. Skin: Negative for rash. Neurological: Negative for light-headedness and numbness. OBJECTIVE Initial Vitals Temperature Pulse Rate Heart Rate Resp Rate Blood Pressure SpO2 12/11/20 0803 12/11/20 0800 -- 12/11/20 0809 12/11/20 0800 12/11/20 0800 36.5 ??C 106 12 115/82 97 % Pain Score -- PHYSICAL EXAMINATION General: Alert, interactive, resting comfortably. Eyes: Pupils equal and round. Sclera anicteric. ENT: Hearing grossly intact. Moist mucous membranes. Neck supple. Lungs: Clear to auscultation. No wheezes or crackles. Heart: Regular rate and rhythm. No murmurs appreciated. Abdomen: Soft, flat, nontender, tender to lower quadrants. Neuro: Moves all extremities spontaneously. No focal neurologic deficits. Psych: Mood and affect congruent. Alert and oriented. Reliable history security intern. ASSESSMENT/PLAN 55-year-old male with recent diagnosis pancreatic adenocarcinoma 07/2020 who underwent ERCP with stent placement due to malignant obstruction on 07/29, and 08/04/2020, subsequently started on chemotherapy (gemcitabine and paclitaxel on 10/16/2020) he was transferred from an outside emergency department with abdominal pain, and concern for recurrent malignant obstruction of his biliary stent. The differential includes malignant obstruction, pancreatic cancer, choledocholithiasis, cholangitis. Lab work was obtained at 3:00 a.m. this morning and noted in HPI above, will hold off on repeating at this time. Will swab for COVID, plan to admit for further evaluation and management of biliary stent obstruction. I reviewed previous medical records including lab results and documentation from previous visits. I personally reviewed the lab result(s) and my interpretation is documented in ED Course. Case reviewed with other health home care and home health aides teacher, including Admitting Provider. ED Course as of Dec 11 922MonDec 11, 2020 0854 Discussed with admitting team. Obtain requested labs including CBC, BMP, hepatic function panel, INR, and get a set of blood cultures. Updated pt with the plan, and all questions and concerns wereaddressed. Final Diagnoses: as of Dec 11 922 Obstruction Intestinal (HCC) Care Handoff Row Name 12/11/20 0855 Care Handoff Type of Handoff Admission handoff Cristo Collins M.D. Resident 12/11/20 0994 documented in this encounter Miscellaneous Notes Hospital Course - Tana Mejia M.D. - 12/11/2020 11:51 AM CDT Mr. Adam Campbell is a 55 y.o. 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 He presented with worsening abdominal pain and was found to have a biliary stent occlusion. ?? Briefly, the patient has localized pancreatic cancer with prior chemotherapy. His course has been complicated by a pseudocyst and ERCP pancreatitis, for which he has had multiple necrosectomies. 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 This was treated with ertapenem until 11/29/2020. He has had multiple stents placed. His most recent ERCP was 11/25. During thatprocedure he had a stent removed and 3 additional stents placed. The cavity contained a small amountof pus and decreased necrosis. ?? Three days prior to admission the patient developed worsening abdominal pain. Pain was located diffusely throughout the abdomen and occasionally radiated to his back. Pain was persistent despite increasing his oxycodone. He had associated poor oral intake. He denied any fevers, chills, nausea, vomiting, or hematochezia. He has had unchanged loose stool in the setting of his bowel regimen. Due to his persistence of pain he sought evaluation at an outside emergency department. ?? At the outside ED, the patient had a temperature of 99.8F, tachycardia with heart rates in the 120-130s, but stable systolic blood pressures in the 110s to 120s. Labs revealed WBC 12.8k, lactate 1.2, total bili 4.1, alk phos 964, AST 537, ALT 487, and lipase 35. CT abdomen and pelvis showed a short segment occlusion in the midportion of the biliary stent. Overall however, there was improvement in hismultiloculated walled-off fluid collection abscesses. He was given 1 g of ertapenem and 1 L of normal saline before transferring to [facility] for further evaluation. In our ED, he was afebrile and hemodynamically stable. Repeat labs revealed a WBC of 15.6, INR 1.4, creatinine 0.7, normal lactate, Tbili 3.8, direct bili 3.8, ALT 308, AST 254, and alkaline phosphatase 761. Blood cultures were obtained. He was admitted for further management. The patient was resuscitated with additional IV fluid. He underwent ERCP 12/11 which revealed one visibly occluded biliary metal stent in the major papilla. The biliary tree was swept and clots, debris, mucus and sludge were found. There was a stenotic segment in the mid-distal third of the stent which was treated with balloon dilation and placement of a 10 Fr x 9 cm plastic stent. Liver function testsimproved. He was continued on IV ertapenem which was transitioned to ciprofloxacin and metronidazole at discharge. documented in this encounter Plan of Treatment Upcoming Encounters Date Type Specialty Care Team Description 06/22/2022 Lab Laboratory Medicine Maria Del Rosario Gomez AP RN, C.N.P., M.S. [address] [place] [address] [phone] (Mj godoy) 06/22/2022 Infusion Oncology Maria Del Rosario Gomez APRN, C.N .P., M.S. [address] [place] [address] [phone] (Mj godoy) 06/29/2022 Lab Laboratory Medicine Maria Del Rosario Gomez AP RN, C.N.P., M.S. [address] [place] [address] [phone] (Mj godoy) 06/29/2022 Infusion Oncology Maria Del Rosario Gomez APRN, C.N .P., M.S. [address] [place] [address] [phone] ( ajyne) documented as of this encounter Procedures Procedure Name Priority Date/Time Associated Comments Diagnosis ECG Routine 12/12/2020 7:25 Results for AM CDT this procedure are in the results section. HEPATIC FUNCTION Routine 12/12/2020 4:27 Results for PANEL, S AM CDT this procedure are in the results section. CBC WITH Routine 12/12/2020 4:27 Results for DIFFERENTIAL, B AM CDT this procedu re are in the results section. BASIC METABOLIC Routine 12/12/2020 4:27 Results f or PANEL, S/P AM CDT this procedure are in the results section. FL FLUORO LESS THAN 1 Routine 12/11/2020 3:20 Res ults for HOUR PM CDT this procedure are in the results section. ERCP Routine 12/11/2020 2:00 Results for PM CDT this procedure are in the results section. ERCP Routine 12/11/2020 2:00 PM CDT ADULT OXYGEN THERAPY Routine 12/11/2020 10:29 AM CDT ADULT OXYGEN THERAPY Routine 12/11/2020 10:29 AM CDT BACTERIA / BRIGID STAT 12/11/2020 9:29 Result s for CULTURE, BLOOD AM CDT this procedur e are in the results section. BACTERIA / BRIGID STAT 12/11/2020 9:15 Result s for CULTURE, BLOOD AM CDT this procedur e are in the results section. PROTHROMBIN TIME STAT 12/11/2020 9:15 Results for (PT), P AM CDT this procedure are in the results section. CBC WITH STAT 12/11/2020 9:15 Results for DIFFERENTIAL, B AM CDT this procedu re are in the results section. LACTATE, B/P STAT 12/11/2020 9:15 Results for AM CDT this procedure are in the results section. BASIC METABOLIC STAT 12/11/2020 9:15 Results f or PANEL, S/P AM CDT this procedure are in the results section. HEPATIC FUNCTION STAT 12/11/2020 9:14 Results for PANEL, S AM CDT this procedure are in the results section. SARS CORONAVIRUS 2, STAT 12/11/2020 9:12 Resul ts for RNA, RAPID POC, V AM CDT this proce dure are in the results section. INTERPRETATION OF RAD - Routine 12/11/2020 8:54 Result s for OUTSIDE CT ABDOMEN (most inpatients AM CDT this procedure AND OR PELVIS and all are in the outpatients) results section. documented in this encounter Results ECG 12 Lead (12/12/2020 7:25 AM CDT) P athologist Signature Ventricular Rate 88 BPM MUSE ECG/Min MA Interval 132 ms MUSE QRSD Interval 102 ms MUSE QT Interval 362 ms MUSE QTC Interval 438 ms MUSE P Monroe 43 degrees MUSE R Monroe 24 degrees MUSE T Wave [place] 28 degrees MUSE Specimen Anatomical Collection Method Collection Time Receive d Time (Source) Location / / Volume Laterality 12/12/2020 7:25 AM 8:48 CDT AM CDT Impressions MUSE - 12/12/2020 8:48 AM CDT Normal sinus rhythm Normal ECG When compared with ECG of 29-OCT-2020 19 :28, MA interval has decreased Non-specific change in ST segment in Ant erior leads QT has shortened Reviewed by HAROON Mckinney Narrative This result has an attachment that is no t available. Procedure Note Jose Luis Sanchez M.D. - 12/12/2020Formatt ing of this note might be different from the original. IMPRESSION: Normal sinus rhythm Normal ECG When compared with ECG of 29-OCT-2020 19 :28, MA interval has decreased Non-specific change in ST segment in Ant erior leads QT has shortened Reviewed by HAROON Mckinney Tana Mejia M.D. ECG ORDERABLES Performing Organization Address City/State/ZIP Code Phon e Number MUSE MUSE NA (ABNORMAL) Hepatic Function Panel (12/12/2020 4:27 AM CDT) Patholo gist Method Time Signature Bilirubin, Total, S 2.3 (H) <=1.2 12/12/2020 DTL mg/dL 5:21 AM CDT Bilirubin, Direct, S 1.9 (H) 0.0 - 0.3 12/12/2020 DTL mg/dL 5:21 AM CDT Aspartate 101 (H) 8 - 48 12/12/2020 DTL Aminotransferase U/L 5:21 AM CDT (AST), S Alanine 198 (H) 7 - 55 12/12/2020 DTL Aminotransferase U/L 5:21 AM CDT (ALT), S Alkaline 645 (H) 40 - 129 12/12/2020 DTL Phosphatase, S U/L 5:21 AM CDT Albumin, S 3.0 (L) 3.5 - 5.0 12/12/2020 DTL g/dL 5:21 AM CDT Protein, Total, S 6.6 6.3 - 7.9 12/12/2020 DTL g/dL 5:21 AM CDT Specimen Anatomical Collection Method Collection Time Receive d Time (Source) Location / / Volume Laterality Blood (Blood, 12/12/2020 4:27 AM 12/13/19 4:52 Venous) CDT AM CDT Vane Chavarria M.D. LAB BLOOD ADD-ON Performing Organization Address City/State/ZIP Code Phon e Number [facility] - [address] [place], [place] [address] [place] [address] [facility] 200 [facility] Basic Metabolic Panel (12/12/2020 4:27 AM CDT) P athologist Signature Potassium, S 4.0 3.6 - 5.2 12/12/2020 DTL mmol/L 5:21 AM CDT Sodium, S 135 135 - 145 12/12/2020 DTL mmol/L 5:21 AM CDT Chloride, S 100 98 - 107 12/12/2020 DTL mmol/L 5:21 AM CDT Bicarbonate, S 26 22 - 29 12/12/2020 DTL mmol/L 5:21 AM CDT Anion Gap 9 7 - 15 12/12/2020 DTL 5:21 AM CDT BUN (Blood Urea 8 8 - 24 12/12/2020 DTL Nitrogen), S mg/dL 5:21 AM CDT Creatinine 0.87 0.74 - 12/12/2020 DTL 1.35 mg/dL 5:21 AM CDT eGFR-Non >90 >=60 12/12/2020 DTL Black/ mL/min/BSA 5:21 AM CDT Cymraes Comment: ----ADDITIONAL INFORMATION---- Estimated GFR calculated using the 2009 CKD_EPI creatinine equation. eGFR-Black/ >90 >=60 mL/min/BSA 2020 5:21 AM CDT DTL Comment: ----ADDITIONAL INFORMATION---- Estimated GFR calculated using the 2009 CKD_EPI creatinine equation. Calcium, Total, S 8.6 8.6 - 10.0 mg/dL 12/12/2020 5:21 AM CDT DTL Glucose, S 85 70 - 140 mg/dL 12/12/2020 5:21 AM CDT D TL Specimen Anatomical Collection Method Collection Time Receive d Time (Source) Location / / Volume Laterality Blood (Blood, 12/12/2020 4:27 AM 12/13/19 4:52 Venous) CDT AM CDT Vane Chavarria M.D. LAB BLOOD ADD-ON Performing Organization Address City/State/ZIP Code Phon e Number [facility] - [address] [place], [place] [address] [place] [address] [facility] [address] (ABNORMAL) CBC with Differential, Blood (12/12/2020 4:27 AM CDT) [facility] Method Time Signature Hemoglobin 9.5 (L) 13.2 - 12/12/2020 DTL 16.6 g/dL 5:01 AM CDT Hematocrit 30.9 (L) 38.3 - 12/12/2020 DTL 48.6 % 5:01 AM CDT Erythrocytes 3.96 (L) 4.35 - 12/12/2020 DTL 5.65 5:01 AM CDT x10(12)/L MCV 78.0 (L) 78.2 - 12/12/2020 DTL 97.9 fL 5:01 AM CDT RBC Distrib Width 18.3 (H) 11.8 - 12/12/2020 DTL 14.5 % 5:01 AM CDT Platelet Count 271 135 - 317 12/12/2020 DTL x10(9)/L 5:01 AM CDT Leukocytes 6.6 3.4 - 9.6 12/12/2020 DTL x10(9)/L 5:01 AM CDT Neutrophils 5.22 1.56 - 12/12/2020 DTL 6.45 5:01 AM CDT x10(9)/L Lymphocytes 0.47 (L) 0.95 - 12/12/2020 DTL 3.07 5:01 AM CDT x10(9)/L Monocytes 0.81 0.26 - 12/12/2020 DTL 0.81 5:01 AM CDT x10(9)/L Eosinophils 0.10 0.03 - 12/12/2020 DTL 0.48 5:01 AM CDT x10(9)/L Basophils <0.03 0.01 - 12/12/2020 DTL 0.08 5:01 AM CDT x10(9)/L Specimen Anatomical Collection Method Collection Time Receive d Time (Source) Location / / Volume Laterality Blood (Blood, 12/12/2020 4:27 AM 12/13/19 4:52 Venous) CDT AM CDT Vane Chavarria M.D. LAB BLOOD ADD-ON Performing Organization Address City/[facility]/ZIP Code Phon e Number [facility] - [address] [place] [address] [place] [address] [facility] 200 [facility] Fluoro Less Than 1 Hour (12/11/2020 3:20 PM CDT) Specimen (Source) Anatomical Location Collection Method / Collectio n Time Received Time / Laterality Volume Narrative ERCP LOS RST - 12/11/2020 3:21 PM CDT This exam does not require a radiologist review or interpretation. Please refer to the patient's medical record on this date for clinical details. Vane Chavarria M.D. IMG FLUOROSCOPY PROCEDURES Performing Organization Address [facility] Phon e Number ERCP LOS RST ERCP (12/11/2020 2:00 PM CDT) Specimen (Source) Anatomical Collection Method Collection Time Re ceived Time Location / / Volume Laterality 12/11/2020 2:00 PM CDT Impressions [facility] - 12/11/2020 3:44 PM CDT Post-op Diagnoses: ? - One visibly occluded biliary me aguila stent was seen in the major papilla ? - The biliary tree was swept and clots, debris, mucus and sludge were ? found. ? - Stenotic segment in the mid-dis aguila third of the stent s/p balloon ? dilation and placement of a 10 Fr x 9 cm plastic stent. Narrative [facility] - 12/11/2020 3:44 PM CDT [facility] GI GI Patient Name: Adam Campbell Date of : 1965 Age: 55 Gender: Male Procedure Date: 12/11/2020 Procedure: ? ERCP Providers: ? Adam Simpson MD, Power Varela (Fellow) Referring Provider: ?Vane Donato ll Comorbidities: ? See the ot her procedure note for documentation of ? 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 Carolyn pected ascending cholangitis, Jaundice, Elevated ? bridger er enzymes, Probable biliary stent occlusion Recommendation: ? - Return patient to [facility] for [facility] care. ? - Resume previous diet today. ? - Watch for pancreatitis, bleedin g, perforation, and cholangitis. ? - Observe patient's clinical cour se and trend LFT. ? - Consider repeating ERCP in 6-8 weeks to exchange plastic biliary stent ? placed today and perform further sweeping of the biliary metal stent if ? clinically indicated. Findings: ? A supervisor final film of the abdomen was o btained. Multiple plastic pigtail ? stents were seen in the stomach l umen consistent with prior placed ? stents in the pancreatic fluid co llection. One metal biliary stent was ? also seen on supervisor final film. The scop e was advanced to a normal major ? papilla in the descending duodenu m. Examination of the pharynx, larynx ? and associated structures, and up per GI tract was normal. One bare metal ? stent originating in the biliary tree was emerging from the major ? papilla. The stent was visibly oc cluded. The bile duct was deeply ? cannulated with the 8.5 mm balloo n over 0.035 inch angled Glidewire in a ? looped fashion. There was palpabl e resistance while advancing the ? balloon cathther through the meta l stent, indicative of stent occlusion. ? Contrast was injected. I personal ly interpreted the bile duct images. ? Ductal flow of contrast was adequ ate. Image quality was adequate. ? Contrast extended to the hepatic ducts. The lower third of the main bile ? duct contained a single moderate stenosis. To discover objects, the ? biliary tree was swept with an 8. 5 mm balloon starting at the upper ? third of the main bile duct and t hrough the metal stent. Copious amunt ? of sludge, debris, stasis stones, mucus and clots were swept from the ? duct. Again, palpable resistance was felt at thd middle to distal third ? of the stent during balloon sweep . We then performed dilation of the ? stenotic segment within the stent with a 6 mm balloon dilator. One 10 Fr ? by 9 cm plastic stent with a sing le external flap and a single internal ? flap was placed into the common b ile duct. Bile flowed through the ? stent. The stent was in good posi tion. Procedural Details: ? The patient was seen, [...] bile duct. The ERCP was accomplis hed with ease. The patient tolerated ? the procedure well. Estimated Blood Loss: ?Estimated blo od loss was minimal. Complications: ? No immedia te complications. 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 Adam Simpson MD 12/11/2020 3:44:12 PM This report has been signed electronical ly. Number of Addenda: 0 Vane Chavarria M.D. GI PROCEDURE ORDERABLES Performing Organization Address City/[facility]/ZIP Code Phon e Number [facility] [employer] NA Bacteria / Brigid Culture, Blood # 2 (12/11/2020 9:29 AM CDT) PathTrivop gist Method Time Signature Bacteria/Jane No growth 12/16/2020 DTL da Culture, after 5 10:02 AM CDT Blood days of incubation. Specimen (Source) Anatomical Collection Method Collection Time Re ceived Time Location / / Volume Laterality Blood (Blood, 12/11/2020 9:29 12/11/2020 9:45 Peripheral Draw) AM CDT AM CDT Comment: Specimen Source Site: Blood Cristo Collins M.D. LAB MICROBIOLOGY - GENERAL O RDERABLES Performing Organization Address City/[facility]/ZIP [facility] Phon e Number [facility] - [address] D[place] [address] [facility] Lactate (12/11/2020 9:15 AM CDT) P athologist Signature Lactate, P 0.7 0.5 - 2.2 12/11/2020 [facility]MA mmol/L 9:32 AM CDT Specimen Anatomical Collection Method Collection Time Receive d Time (Source) Location / / Volume Laterality Blood (Blood, 12/11/2020 9:15 AM 12/12/19 21 9:18 Venous) CDT AM CDT Cristo Collins M.D. LAB BLOOD NON ADD-ON Performing Organization Address City/[facility]/ZIP [facility] Phon e Number [facility] - [address] [place], [place] [address] [address] [place] [address] [facility] [address] Bacteria / Brigid Culture, Blood #1 (12/11/2020 9:15 AM CDT) Patholo gist Method Time Signature Bacteria/Jane No growth 12/16/2020 DTL da Culture, after 5 10:02 AM CDT Blood days of incubation. Specimen (Source) Anatomical Collection Method Collection Time Re ceived Time Location / / Volume Laterality Blood (Blood, 12/11/2020 9:15 12/11/2020 9:50 Peripheral Draw) AM CDT AM CDT Comment: Specimen Source Site: Blood Cristo Collins M.D. LAB MICROBIOLOGY - GENERAL O RDERABLES Performing Organization Address City/[facility] Phon e Number [facility] - [address] [place], [place] [address] [place] [address] [facility] 200 [facility] (ABNORMAL) Prothrombin Time (PT) (12/11/2020 9:15 AM CDT) [facility] gist Method Time Signature Prothrombin 15.9 (H) 9.4 - 12.5 12/11/2020 [facility] Time, P sec 9:25 AM CDT INR 1.4 0.9 - 1.1 12/11/2020 [facility] 9:25 AM CDT Comment: ----ADDITIONAL INFORMATION---- Standard intensity warfarin therapeutic range: 2.0 to 3.0 ?? High intensity warfarin therapeutic rang e: 2.5 to 3.5 Specimen Anatomical Collection Method Collection Time Receive d Time (Source) Location / / Volume Laterality Blood (Blood, 12/11/2020 9:15 AM 12/12/19 21 9:19 Venous) CDT AM CDT Cristo Collins M.D. LAB BLOOD ADD-ON Performing Organization Address [facility] Phon e Number [facility] - [address] [place], [place] [address] [place] [address] [facility] 200 [facility] (ABNORMAL) Basic Metabolic Panel (12/11/2020 9:15 AM CDT) Analysis Performed At Path logist Time Signature Potassium, P 3.9 3.6 - 5.2 12/11/2020 [facility] mmol/L 9:36 AM CDT Sodium, P 132 (L) 135 - 145 12/11/2020 [facility] mmol/L 9:36 AM CDT Chloride, P 102 98 - 107 12/11/2020 [facility] mmol/L 9:36 AM CDT Bicarbonate, P 25 22 - 29 12/11/2020 [facility] mmol/L 9:36 AM CDT Anion [place], P 5 (L) 7 - 15 12/11/2020 STMA 9:36 AM CDT BUN (Blood Urea 8 8 - 24 12/11/2020 STMA Nitrogen), P mg/dL 9:36 AM CDT Creatinine 0.70 (L) 0.74 - 12/11/2020 STMA 1.35 mg/dL 9:36 AM CDT eGFR-Black/Afri >90 >=60 12/11/2020 STMA can [place]es mL/min/BSA 9:36 AM CDT Comment: ----ADDITIONAL INFORMATION---- Estimated GFR calculated using the 2009 CKD_EPI creatinine equation. eGFR Non-Black/ >90 >=60 mL/min/BSA 12/11/2020 9:36 AM CDT STMA Comment: ----ADDITIONAL INFORMATION---- Estimated GFR calculated using the 2009 CKD_EPI creatinine equation. Calcium, Total, P 8.7 8.6 - 10.0 mg/dL 12/11/2020 9:36 AM CDT STMA Glucose, P 107 70 - 140 mg/dL 12/11/2020 9:36 AM CDT S TMA Specimen Anatomical Collection Method Collection Time Receive d Time (Source) Location / / Volume Laterality Blood (Blood, 12/11/2020 9:15 AM 12/12/19 9:18 Venous) CDT AM CDT Cristo Collins M.D. LAB BLOOD ADD-ON Performing Organization Address City/State/ZIP Code Phon e Number [facility] - [address] [place], [place] [address] [place] [address] [facility] [address] (ABNORMAL) CBC with Differential, Blood (12/11/2020 9:15 AM CDT) [facility] Method Time Signature Hemoglobin 9.7 (L) 13.2 - 12/11/2020 STMA 16.6 g/dL 9:23 AM CDT Hematocrit 31.1 (L) 38.3 - 12/11/2020 STMA 48.6 % 9:23 AM CDT Erythrocytes 3.97 (L) 4.35 - 12/11/2020 STMA 5.65 9:23 AM CDT x10(12)/L MCV 78.3 78.2 - 12/11/2020 STMA 97.9 fL 9:23 AM CDT RBC Distrib Width 18.4 (H) 11.8 - 12/11/2020 STMA 14.5 % 9:23 AM CDT Platelet Count 287 135 - 317 12/11/2020 STMA x10(9)/L 9:23 AM CDT Leukocytes 15.6 (H) 3.4 - 9.6 12/11/2020 STMA x10(9)/L 9:23 AM CDT Neutrophils 13.39 (H) 1.56 - 12/11/2020 STMA 6.45 9:23 AM CDT x10(9)/L Lymphocytes 0.73 (L) 0.95 - 12/11/2020 STMA 3.07 9:23 AM CDT x10(9)/L Monocytes 1.39 (H) 0.26 - 12/11/2020 STMA 0.81 9:23 AM CDT x10(9)/L Eosinophils <0.03 0.03 - 12/11/2020 STMA 0.48 9:23 AM CDT x10(9)/L Basophils 0.03 0.01 - 12/11/2020 STMA 0.08 9:23 AM CDT x10(9)/L Specimen Anatomical Collection Method Collection Time Receive d Time (Source) Location / / Volume Laterality Blood (Blood, 12/11/2020 9:15 AM 12/12/19 21 9:19 Venous) CDT AM CDT Cristo Collins M.D. LAB BLOOD ADD-ON Performing Organization Address City/State/ZIP Code Phon e Number [facility] - [address] [place] [address] [place] [address] [facility] 200 [facility] (ABNORMAL) Hepatic Function Panel (12/11/2020 9:14 AM CDT) [facility] gist Method Time Signature Bilirubin, Total, S 3.8 (H) <=1.2 12/11/2020 DTL mg/dL 10:32 AM CDT Bilirubin, Direct, S 3.8 (H) 0.0 - 0.3 12/11/2020 DTL mg/dL 10:32 AM CDT Aspartate 254 (H) 8 - 48 12/11/2020 DTL Aminotransferase U/L 10:32 AM CDT (AST), S Alanine 308 (H) 7 - 55 12/11/2020 DTL Aminotransferase U/L 10:32 AM CDT (ALT), S Alkaline 761 (H) 40 - 129 12/11/2020 DTL Phosphatase, S U/L 10:32 AM CDT Albumin, S 3.1 (L) 3.5 - 5.0 12/11/2020 DTL g/dL 10:32 AM CDT Protein, Total, S 6.7 6.3 - 7.9 12/11/2020 DTL g/dL 10:32 AM CDT Specimen Anatomical Collection Method Collection Time Receive d Time (Source) Location / / Volume Laterality Blood (Blood, 12/11/2020 9:14 AM 12/12/19 21 9:51 Venous) CDT AM CDT Cristo Collins M.D. LAB BLOOD ADD-ON Performing Organization Address City/State/ZIP Code Phon e Number [facility] - [address] [place], [place] [address] [place] [place] [address] [facility] 200 [facility] SARS Coronavirus 2, RNA, Rapid POC, V Asymptomatic (12/11/2020 9:12 AM CDT) [facility] Method Time Signature SARS Undetected Undetected 12/11/2020 DTLR Coronavirus-2 9:32 AM CDT , RNA, Rapid POC, V Comment: Negative for SARS-CoV-2. The Cue COVID-19 test is a molecular marli t for SARS-CoV-2, the virus that causes COVID- 19. A Negative result means that the Fixetude COV ID-19 test did not detect SARS-CoV-2 virus in your sample. Cue COVID-19 test uses the INAPPIN nitAllTrails System. This test has received Emergency Use Authorization (EUA) by the U.S. Food and Drug Administration (FDA) and is used per man ufacturer instructions. Performance characteristic s were verified by [facility] in a manner consistent with CLIA requirements. Fact sheets for this Emerg ency Use Authorization (EUA) can be found at the following links: Providers: [email or web address] Patients: [email or web address] SARS Coronavirus 2, Source Nasopharynx DEFAULT 12/11/2020 9:32 AM CDT DTLR Specimen Anatomical Collection Method Collection Time Receive d Time (Source) Location / / Volume Laterality Varies 12/11/2020 9:12 AM 9:12 (Nasopharynx) CDT AM CDT Cristo Collins M.D. 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 Pain Cancer Associated documented in this encounter Admitting Diagnoses Diagnosis Obstruction Intestinal (HCC) documented in this encounter Administered Medications Inactive Administered Medications - up to 3 most recent administrations Medication Order MAR Action Action Date Dose Rate Site acetaminophen tablet 500 mg Given 12/11/2020 10:15 AM CDT 500 mg (TYLENOL) 500 mg, oral, Every 6 hours, First dose on Mon12/11/20 at 1100 acetaminophen tablet 500 mg (TYLENOL) 500 mg, oral, Every 6 hours PRN, mild pa in or score 1-3 of 10, fever, Starting on Mon12/11/20 at 1030 ertapenem injection 1 g (INVanz) Given 12/12/2020 4:23 AM CDT 1 g 1 g, intravenous, Every 24 hours, First dose on Mon12/12/20 at 0400, If needed, reconstitute vial per package insert instructions. See IVAG for administration guidelines. , Restriction Criteria (Pharmacy will review and approve if criteria met): 1 dose prior to discharge, Drug Monitoring Program: Pharmacist to adjust medication dosing based on indication and drug clearance factors., Indications: Intra-abdominal infection, community acquired heparin (porcine) injection 5,000 Units 5,000 Units, subcutaneous, Every 8 hours scheduled, Fi rst dose on Mon12/11/20 at 2200 HYDROmorphone (PF) injection 0.2 mg (DIL AUDID) 0.2 mg, intravenous, Every 4 hours PRN, moderate pain or score 4-6 of 10, severe pain or score 7-10 of 10, Starting on Mon12/11/20 at 11 12 lactated Ringer's bolus 1,000 mL New Bag 12/11/2020 11:00 AM CDT 1,000 mL 167 mL/hr 1,000 mL, intravenous, at 167 mL/hr, Administer over 6 Hours, Once, On Mon12/11/20 at 1045, For 1 dose ondansetron (PF) injection 4 mg (ZOFRAN) 4 mg, intravenous, Every 6 hours PRN, nausea, vomiting , unable to tolerate PO zofran, Starting on Mon12/11/20 at 1155 oxyCODONE IR tablet 10 mg (ROXICODONE) Given 12/12/2020 4:14 AM CDT 10 mg 10 mg, oral, Every 3 hours PRN, moderate pain or score 4-6 of 10, severe pain or score 7-10 of 10, Starting on Mon12/11/20 at 1008, Indications: Chronic Pain/Nonacute Pain Given 12/11/2020 10:15 AM CDT [address] tablet 40 mg (PROTONIX) Given 12/12/2020 6:47 AM CDT 40 mg 40 mg, oral, Daily before breakfast, First dose on Mon12/12/20 at 0700, Swallow whole. Do NOT crush, chew, or split tablet. polyethylene glycol powder packet 17 g Given 12/12/2020 8:00 AM CDT 17 g (MIRALAX) 17 g, oral, 2 times daily, First dose on Mon12/11/20 at 2100, Dissolve in 240 mLs (8 ounces) of water prior to giving. Avoid mixing with starch-based thickened liquids. Given 12/11/2020 9:05 PM CDT 17 g sennosides-docusate sodium 8.6-50 mg per Given 12/12/2020 8: 02 AM CDT 3 tablets tablet 3 tablet (SENOKOT-S) 3 tablet, oral, 2 times daily, First dose on Mon12/11/20 at 2100 Given 12/11/2020 9:05 PM CDT 3 tablets documented in this encounter Active and Recently Administered Medications Times are shown in CDT. Scheduled Medication Order 12/10/2020 12/11/2020 12/12/2020 acetaminophen tablet 500 mg (TYLENOL) (CANCELED) 1015 (Given - Provider: Roxana Burris R.N., C.M.S.R.N.) 500 mg, oral, Every 6 hours, First dose on Mon12/11/20 at 1100 ertapenem injection 1 g (INVanz) 0423 (Given - Provider: Oswaldo Scott R.N.) 1 g, intravenous, Every 24 hours, First dose on Mon12/12/20 at 0400, If needed, reconstitute vial per package insert instructions. See IVAG for administration guidelines. , Restriction Criteria (Pharmacy will review and approve if criteria met ): 1 dose prior to discharge, Drug Monitoring Program: Pharmacist to adjust medication dosing based on indication and drug clearance factors., Indications: Intra-abdominal infection, community acquired heparin (porcine) injection 5,000 Units 2106 (Not Given - Provider: David Tinsley R.N. - Reason: Patient/family refused) 0505 (Not Given - Provider: Oswaldo Scott R.N. - Reason: Patient/family refused) 5,000 Units, subcutaneous, Every 8 hours scheduled, First dose on Mon12/11/20 at 2200 lactated Ringer's bolus 1,000 mL (COMPLETED) 1100 (New Bag - Provider: Roxana Burris R.N., C.M.S.R.N.) 1,000 mL, intravenous, at 167 mL/hr, Adm inister over 6 Hours, Once, On Mon12/11/20 at 1045, For 1 dose nystatin suspension 500,000 Units (MYCOSTATIN) 1611 (Not Given - Provider: Roxana Burris R.N., C.M.S.R.N. - Reason: Patient/family refused - Comment: states only needs it when starting/taking antibiotics)2114 (Not Given - Provider: David Tinsley R.N. - Reason: Patient/family refused) 1000 (Due - Provider: Neyda Alexandre R.N.) 500,000 Units, swish & spit, 4 times joann ly, First dose on Mon12/11/20 at 1700, Indications: Prophylaxis, medical pantoprazole DR tablet 40 mg (PROTONIX) 0647 (Given - Provider: Oswaldo Scott R.N.) 40 mg, oral, Daily before breakfast, Fir st dose on Mon12/12/20 at 0700, Swallow whole. Do NOT crush, chew, or split tablet. polyethylene glycol powder packet 17 g (MIRALAX) 2104 (Given - Provider: David Tinsley R.N.) 0800 (Given - Provider: Neyda Alexandre R.N.) 17 g, oral, 2 times daily, First dose on Mon12/11/20 at 2100, Dissolve in 240 mLs (8 ounces) of water prior to giving. Avoid mixing with starch-based thickened liquids. sennosides-docusate sodium 8.6-50 mg per tablet 3 tablet (SE NOKOT-S) 8969 (Given - Provider: David Tinsley RRiazNRiaz) 0802 (Given - Provider: Neyda Alexandre R.N.) 3 tablet, oral, 2 times daily, First dose on Mon12/11/20 at 2100 PRN Medication Order 12/10/2020 12/11/2020 12/12/2020 acetaminophen tablet 500 mg (TYLENOL) 500 mg, oral, Every 6 hours PRN, mild pa in or score 1-3 of 10, fever, Starting on Mon12/11/20 at 1030 HYDROmorphone (PF) injection 0.2 mg (DILAUDID) 0.2 mg, intravenous, Every 4 hours PRN, moderate pain or score 4-6 of 10, severe pain or score 7-10 of 10, Starting on Mon12/11/20 at 1112 ondansetron (PF) injection 4 mg (ZOFRAN) 4 mg, intravenous, Every 6 hours PRN, na usea, vomiting, unable to tolerate PO zofran, Starting on Mon12/11/20 at 1155 ondansetron tablet 8 mg (ZOFRAN) 8 mg, oral, Every 8 hours PRN, nausea, vomiting, Starting 11/01 at 1008 oxyCODONE IR tablet 10 mg (ROXICODONE) 1 015 (Given - Provider: Roxana Burris R.N., C.M.S.R.N.) 0414 (Given - Provider: Oswaldo Scott R.N.) 10 mg, oral, Every 3 hours PRN, moderate pain or score 4-6 of 10, severe pain or score 7-10 of 10, Starting on Mon12/11/20 at 1008, Indications: Chronic Pain/Nonacute Pain documented in this encounter Additional Health Concerns Infection Onset Date Last Indicated Resolved Time COVID19 Pending 12/11/2020 12/11/2020 12/11/2020 9:32 AM CDT documented as of this encounter Care Teams Acid Patroller Relationship Specialty Start Date End Date Elsewhere, Pcp PCP - General Family Medicine 08/12/20 documented as of this encounter
--- OUTSIDE RECORDS SUMMARY | 2022-06-18 16:17 | XMS_ITS | Encounter Summary ---
:1965 Author Organization [facility] Address [address] [place] [address] Care Team Providers Name Role Phone Elsewhere, Pcp Primary Care Provider Unavailable Encounter Details Date Type Department Care Team Description 12/23/2020 Clinical Communication Division of Loi, Gastroenterology in [place], [place] [address] [facility] [address] [place] [phone] Social History Tobacco Use Types Packs/Day Years [...] How often do you attend judaism or mormonism services? 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 He noted that some chronic lower back pain that he had prior to the ERCP procedure on 12/11 has been slowly worsening since the procedure but was not severe. Given that it had continued to persist, he called in tonight.He wondered if it may be related to some biliary obstruction at this time. He noted that he is having no abdominal pain, fevers/chills, nausea/ vomiting or other new symptoms. He wondered if getting some follow up labs done would make sense which I agreed. Given the slowly progression of his symptoms and no evidence of concerning features tonight, we agreed that having his primary GI and oncology providers assess the situation and order what they felt was the appropriate labs and other work up tomorrow would be reasonable. I will let both of these teams know so that this can be arranged in the nearfuture. documented in this encounter Plan of Treatment Upcoming Encounters Date Type Specialty Care Team Description 06/22/2022 Lab Laboratory Medicine Maria Del Rosario Gomez AP RN, C.N.P., M.S. [address] [place] [phone] (Mj godoy) 06/22/2022 Infusion Oncology Maria Del Rosario Gomez APRN, C.N .P., M.S. [address] [place] [phone] (Mj godoy) 06/29/2022 Lab Laboratory Medicine Maria Del Rosario Gomez AP RN, C.N.P., M.S. [address] [place] [phone] (Mj godoy) 06/29/2022 Infusion Oncology Maria Del Rosario Gomez APRN, C.N .P., M.S. [address] [place], [place] [phone] (Wo rk) documented as of this encounter Visit Diagnoses Not on filedocumented in this encounter Care Teams Gyroscopic Engineering Technician Relationship Specialty Start Date End Date Elsewhere, Pcp PCP - General Family Medicine 08/12/20 documented as of this encounter
--- OUTSIDE RECORDS SUMMARY | 2022-06-18 16:17 | XMS_ITS | Encounter Summary ---
:1965 Author Organization [facility] Address [address] [place] [address] Care Team Providers Name Role Phone Elsewhere, Pcp Primary Care Provider Unavailable Reason for Visit Reason Comments Intake Assessment Encounter Details Date Type Department Care Team Description 12/30/2020 Clinical Communication Department of Deborah Murray Inta ke Assessment Oncology [place] [address] [facility] [address] [place] [phone] Social History Tobacco Use Types Packs/Day Years [...] How often do you attend orthodox or mosque services? 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 documented in this encounter Plan of Treatment Upcoming Encounters Date Type Specialty Care Team Description 06/22/2022 Lab Laboratory Medicine Maria Del Rosario Gomez AP RN, C.N.P., M.S. [address] [place] [phone] (Mj godoy) 06/22/2022 Infusion Oncology Maria Del Rosario Gomez APRN, C.N .P., M.S. [address] [place] [phone] (Mj rk) 06/29/2022 Lab Laboratory Medicine Maria Del Rosario Gomez AP RN, C.N.P., M.S. [address] [place] [phone] (Mj rk) 06/29/2022 Infusion Oncology Maria Del Rosario Gomez APRN, C.N .P., M.S. [address] [place] [phone] (Mj godoy) documented as of this encounter Visit Diagnoses Not on filedocumented in this encounter Care Teams Chemical Dependency Counselor Relationship Specialty Start Date End Date Elsewhere, Pcp PCP - General Family Medicine 08/12/20 documented as of this encounter
--- OUTSIDE RECORDS SUMMARY | 2022-06-18 16:17 | XMS_ITS | Encounter Summary ---
:1965 Author Organization [facility] Address [address] [place] [address] Care Team Providers Name Role Phone Elsewhere, Pcp Primary Care Provider Unavailable Reason for Visit Reason Comments Med Refill oxyCODONE (ROXICODONE) 10 mg IR tablet Encounter Details Date Type Department Care Team Description 12/21/2020 Clinical Communication Department of Deborah Murray, Med Refill Oncology in [place] (oxyCODONE [place], [facility] [address] [facility] (ROXICODONE) 10 mg [place], [place] IR tablet ) [address] [facility] [address] [place], [place] [phone] (Work) [phone] Social History Tobacco Use Types Packs/Day Years [...] How often do you attend temple or samaritan services? 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 - 12/22/2020 1:52 PM CDT SUBJECTIVE CHIEF COMPLAINT / REASON FOR CALL Med Refill (oxyCODONE (ROXICODONE) 10 mg IR tablet ) PLAN The following information was provided: I spoke with Tequila, PharmD, with [facility]. She is requesting a new oxycodone refill for5 mg tablets, rather than 10 mg tablets. She explains that Mr. Campbell was previously getting oxycodone refills through his LMD. He was previously getting oxycodone 5 mg tablets, initially taking 5 mg three times a day. He increased to taking 10 mg three time a day, and now has great relief. However, his LMD is on vacation, and Mr. Campbell ran out of pain medication last Monday. She did supply him with 18 tablets, until a refill could be sent on Monday. With sending the 10 mg tablets, she is unable to reimburse the 5 mg tablets used this weekend. Per discussion with Dr. Murray, will send a new prescription of oxycodone 5-10 mg as needed every 4-6 hours, with 90 tablets. Information/Education: patient/caller able to teach back The following references were used: provider TRAMAINE Padilla Ma Telephone Encounter - Jordan Grullon Laura - 12/22/2020 9:37 AM CDT Do we have a valid auth to speak with caller? Self Reason for call: Patient called and said that his pills were increased to 2 pills 3 times a day. Andthis is working for him, his quality of life was much better. [facility]. The pharmacy lent him 18 pills that he needs to pay them back. Please call for clarification. Pt took last pill. Please fill casie. Thank you, Jordan Automated Process Operator RST ONC ROGO Med Aa POD 1 documented in this encounter Plan of Treatment Upcoming Encounters Date Type Specialty Care Team Description 06/22/2022 Lab Laboratory Medicine Maria Del Rosario Gomez AP RN, C.N.P., M.S. [address] [place] [phone] (Mj godoy) 06/22/2022 Infusion Oncology Maria Del Rosario Gomez APRN, C.N .P., M.S. [address] [place] [phone] (Mj godoy) 06/29/2022 Lab Laboratory Medicine Maria Del Rosario Gomez AP RN, C.N.P., M.S. [address] [place] [phone] (Mj godoy) 06/29/2022 Infusion Oncology Maria Del Rosario Gomez APRN, C.N .P., M.S. [address] [place] [phone] (Mj godoy) documented as of this encounter Visit Diagnoses Not on filedocumented in this encounter Care Teams Financial Advocate Relationship Specialty Start Date End Date Elsewhere, Pcp PCP - General Family Medicine 08/12/20 documented as of this encounter
--- OUTSIDE RECORDS SUMMARY | 2022-06-18 16:17 | XMS_ITS | Encounter Summary ---
:1965 Author Organization [facility] Address [address] [place] [address] Care Team Providers Name Role Phone Elsewhere, Pcp Primary Care Provider Unavailable Reason for Visit Reason Comments Returning apts and surgeon consult Encounter Details Date Type Department Care Team Description 12/17/2020 Clinical Communication Department of Deborah Murray Retu rning apts and Oncology in [place] surgeon consult [place], [facility] [address] [place], [place] [address] [facility] [address] [place], [place] [phone] (Work) [phone] Social History Tobacco Use Types Packs/Day Years [...] How often do you attend uatsdin or moravian services? 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 [address] [place] [phone] (Mj rk) 06/22/2022 Infusion Oncology Maria Del Rosario Gomez APRN, C.N .P., M.S. [address] [place] [phone] (Wo rk) 06/29/2022 Lab Laboratory Medicine Maria Del Rosario Gomez AP RN, C.N.P., M.S. [address] [place] [phone] (Mj rk) 06/29/2022 Infusion Oncology Maria Del Rosario Gomez APRN, C.N .P., M.S. [address] [place] [phone] (Mj rk) documented as of this encounter Visit Diagnoses Not on filedocumented in this encounter Care Teams Destination Specialist Relationship Specialty Start Date End Date Elsewhere, Pcp PCP - General Family Medicine 08/12/20 documented as of this encounter
--- OUTSIDE RECORDS SUMMARY | 2022-06-18 16:17 | XMS_ITS | Encounter Summary ---
:1965 Author Organization [facility] Address [address] [place] [address] Care Team Providers Name Role Phone Elsewhere, Pcp Primary Care Provider Unavailable Encounter Details Date Type Department Care Team Description 12/14/2020 Lab Department of Infusion Deborah Murray Malig nant Neoplasm Of Pancreas (HCC) (Primary Dx); Therapy in [facility] [address] [facility] [address] [place] [phone] (Wo rk) Social History Tobacco Use Types [...] How often do you attend baptism or buddhist services? 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 [address] [place] [address] [phone] (Wo rk) 06/22/2022 Infusion Oncology Maria Del Rosario Gomez APRN, C.N .P., M.S. [address] [place] [address] [phone] (Wo rk) 06/29/2022 Lab Laboratory Medicine Maria Del Rosario Gomez AP RN, C.N.P., M.S. [address] [place] [address] [phone] (Wo rk) 06/29/2022 Infusion Oncology Maria Del Rosario Gomez APRN, C.N .P., M.S. [address] [place] [address] [phone] (Wo rk) documented as of this encounter Procedures Procedure Name Priority Date/Time Associated Comments Diagnosis CARBOHYDRATE AG 19-9 Routine 12/14/2020 1:32 PM Malignant Neop lasm Results for this (CA 19-9), S CDT Of Pancreas (HCC) procedure are in the results section. CBC WITH DIFFERENTIAL, Routine 12/14/2020 1:32 PM Malignant Ne oplasm Results for this B CDT Of Pancreas (HCC) procedure are in the results section. GLUCOSE, FASTING, S/P Routine 12/14/2020 1:32 PM Malignant Siva plasm Results for this CDT Of Pancreas (HCC) procedure are in the results section. COMPREHENSIVE Routine 12/14/2020 1:32 PM Malignant Neoplasm Re sults for this METABOLIC PANEL, S/P CDT Of Pancreas (HCC) pr ocedure are in the results section. documented in this encounter Results Glucose, Fasting (12/14/2020 1:32 PM CDT) P athologist Signature Glucose, P 88 70 - 100 12/14/2020 DTL mg/dL 2:43 PM CDT Last Intake 10 hr 12/14/2020 DTL 2:12 PM CDT Specimen Anatomical Collection Method Collection Time Receive d Time (Source) Location / / Volume Laterality Blood (Blood, 12/14/2020 1:32 PM 12/15/19 2:12 Venous) CDT PM CDT Deborah Valera LAB BLOOD NON ADD-ON Performing Organization Address City/State/ZIP Code Phon e Number [facility] [address] [place], [place] [address] [facility] [place] [address] [facility] [address] [facility] (ABNORMAL) Comprehensive Metabolic Panel (12/14/2020 1:32 PM CDT) athologist Signature Potassium, S 4.0 3.6 - 5.2 12/14/2020 DTL mmol/L 2:50 PM CDT Sodium, S 138 135 - 145 12/14/2020 DTL mmol/L 2:50 PM CDT Chloride, S 102 98 - 107 12/14/2020 DTL mmol/L 2:50 PM CDT Bicarbonate, S 26 22 - 29 12/14/2020 DTL mmol/L 2:50 PM CDT Anion Gap 10 7 - 15 12/14/2020 DTL 2:50 PM CDT BUN (Blood Urea 10 8 - 24 12/14/2020 DTL Nitrogen), S mg/dL 2:50 PM CDT Creatinine 0.85 0.74 - 12/14/2020 DTL 1.35 mg/dL 2:50 PM CDT eGFR-Non >90 >=60 12/14/2020 DTL Black/ mL/min/BSA 2:50 PM CDT Armenian Comment: ----ADDITIONAL INFORMATION---- Estimated GFR calculated using the 2009 CKD_EPI creatinine equation. eGFR-Black/ >90 >=60 mL/min/BSA 2020 2:50 PM CDT DTL Comment: ----ADDITIONAL INFORMATION---- Estimated GFR calculated using the 2009 CKD_EPI creatinine equation. Calcium, Total, S 9.3 8.6 - 10.0 mg/dL 12/14/2020 2:50 PM CDT DTL Glucose, S CANCELED mg/dL 12/14/2020 2:12 PM CDT DTL Comment: Test not performed. See Fasting Glucose result. Result canceled by the ancillary. Protein, Total, S 7.5 6.3 - 7.9 g/dL 12/14/2020 2:50 P M CDT DTL Albumin, S 3.4 (L) 3.5 - 5.0 g/dL 12/14/2020 2:50 PM CDT D TL Aspartate Aminotransferase 27 8 - 48 U/L 12/14/2020 2 :50 PM CDT DTL (AST), S Alkaline Phosphatase, S 534 (H) 40 - 129 U/L 12/14/2020 2: 50 PM CDT DTL Alanine Aminotransferase (ALT), 91 (H) 7 - 55 U/L 2:50 PM CDT DTL S Bilirubin, Total, S 1.1 <=1.2 mg/dL 12/14/2020 2:50 PM CDT DTL Specimen Anatomical Collection Method Collection Time Receive d Time (Source) Location / / Volume Laterality Blood (Blood, 12/14/2020 1:32 PM 12/15/19 2:11 Venous) CDT PM CDT Deborah RussoS. LAB BLOOD ADD-ON Performing Organization Address City/State/ZIP Code Phon e Number [facility] - [address] [place] [address] [facility] [place] [address] [facility] 200 [facility] (ABNORMAL) CBC with Differential, Blood (12/14/2020 1:32 PM CDT) [facility] gist Method Time Signature Hemoglobin 9.8 (L) 13.2 - 12/14/2020 DTL 16.6 g/dL 2:22 PM CDT Hematocrit 32.4 (L) 38.3 - 12/14/2020 DTL 48.6 % 2:22 PM CDT Erythrocytes 4.07 (L) 4.35 - 12/14/2020 DTL 5.65 2:22 PM CDT x10(12)/L MCV 79.6 78.2 - 12/14/2020 DTL 97.9 fL 2:22 PM CDT RBC Distrib Width 18.4 (H) 11.8 - 12/14/2020 DTL 14.5 % 2:22 PM CDT Platelet Count 367 (H) 135 - 317 12/14/2020 DTL x10(9)/L 2:22 PM CDT Leukocytes 7.8 3.4 - 9.6 12/14/2020 DTL x10(9)/L 2:22 PM CDT Neutrophils 5.46 1.56 - 12/14/2020 DTL 6.45 2:22 PM CDT x10(9)/L Lymphocytes 1.29 0.95 - 12/14/2020 DTL 3.07 2:22 PM CDT x10(9)/L Monocytes 0.84 (H) 0.26 - 12/14/2020 DTL 0.81 2:22 PM CDT x10(9)/L Eosinophils 0.15 0.03 - 12/14/2020 DTL 0.48 2:22 PM CDT x10(9)/L Basophils 0.03 0.01 - 12/14/2020 DTL 0.08 2:22 PM CDT x10(9)/L Specimen Anatomical Collection Method Collection Time Receive d Time (Source) Location / / Volume Laterality Blood (Blood, 12/14/2020 1:32 PM 12/15/19 21 2:11 Venous) CDT PM CDT Deborah VillaB.S. LAB BLOOD ADD-ON Performing Organization Address City/State/ZIP Code Phon e Number [facility] - [address] [place], [place] [address] [facility] [place] [address] [facility] [address] (ABNORMAL) Carbohydrate Antigen 19-9 (CA 19-9) (12/14/2020 1:32 PM CDT) Analysis Performed At Patho logist Time Signature Carbohydrate Ag 40 (H) <35 U/mL 12/14/2020 SDSC 19-9, S 6:26 PM CDT Comment: ----ADDITIONAL INFORMATION---- The testing method is an immunoenzymatic assay manufactured by [employer] and performed on the UniCel DxI 800. ? Values obtained with different assay met hods or kits may be different and cannot be used inte rchangeably. ? Test results cannot be interpreted as ab solute evidence for the presence or absence of malignant disease. Specimen Anatomical Collection Method Collection Time Receive d Time (Source) Location / / Volume Laterality Blood (Blood, 12/14/2020 1:32 PM 12/15/19 5:40 Venous) CDT PM CDT Deborah Valera LAB BLOOD ADD-ON Performing Organization Address City/State/ZIP Code Phon e Number [facility] [address] [place], [place] [address] [facility] [place] [address] Laboratory Medicine and Pathology [address] [place] documented in this encounter Visit Diagnoses Diagnosis Malignant Neoplasm Of Pancreas (HCC) - P rimary Bacteremia documented in this encounter Administered Medications Inactive Administered Medications - up to 3 most recent administrations Medication Order MAR Action Action Date Dose Rate Site heparin flush 500 Units Given 12/14/2020 1:34 PM CDT 500 Units 500 Units, intra-catheter, As needed, line care, Starting on Mon12/14/20 at 1326, When no infusion to maintain patency: For IVAD accessed, not in use, and/or prior to hospital discharge, flush every 7 days after 0.9% preservative-free NaCL flush. For IVAD NOT accessed or used, flush every 4 weeks after 0.9% preservative-free NaCL flush. sodium chloride 0.9 % injection 10 mL Given 12/14/2020 1:33 PM CDT 10 mL 10 mL, intra-catheter, As needed, line care, Starting on Mon12/14/20 at 1326, When IVAD Accessed and in Use: Flush prior to and following infusion, between multiple consecutive infusions, and prior to blood sampling. sodium chloride 0.9 % injection 10-30 mL Given 12/14/2020 1:33 PM CDT 30 mL 10-30 mL, intra-catheter, As needed, line care, Starting on Mon12/14/20 at 1323, When no infusion to maintain patency. Flush every 7 days to each lumen. documented in this encounter Care Teams Academic Affairs Vice President Relationship Specialty Start Date End Date Elsewhere, Pcp PCP - General Family Medicine 08/12/20 documented as of this encounter
--- OUTSIDE RECORDS SUMMARY | 2022-06-18 16:17 | XMS_ITS | Encounter Summary ---
:1965 Author Organization [facility] Address [address] [place] [address] Care Team Providers Name Role Phone Elsewhere, Pcp Primary Care Provider Unavailable Reason for Visit Reason Comments Intake Assessment Encounter Details Date Type Department Care Team Description 12/09/2020 Clinical Communication Department of Deborah Murray Inta ke Assessment [place] [address] [facility] [address] [place] [phone] Social History Tobacco Use Types Packs/Day Years [...] How often do you attend mosque or buddhist services? 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 documented in this encounter Plan of Treatment Upcoming Encounters Date Type Specialty Care Team Description 06/22/2022 Lab Laboratory Medicine Maria Del Rosario Gomez AP RN, C.N.P., M.S. [address] [place] [phone] (Mj godoy) 06/22/2022 Infusion Oncology Maria Del Rosario Gomez APRN, C.N .P., M.S. [address] [place] [phone] (Mj rk) 06/29/2022 Lab Laboratory Medicine Maria Del Rosario Gomez AP RN, C.N.P., M.S. [address] [place] [address] [phone] (Mj rk) 06/29/2022 Infusion Oncology Maria Del Rosario Gomez APRN, C.N .P., M.S. [address] [place] [address] [phone] (Mj godoy) documented as of this encounter Visit Diagnoses Not on filedocumented in this encounter Care Teams Chemical Supervisor Relationship Specialty Start Date End Date Elsewhere, Pcp PCP - General Family Medicine 08/12/20 documented as of this encounter
--- OUTSIDE RECORDS SUMMARY | 2022-06-18 16:17 | XMS_ITS | Encounter Summary ---
:1965 Author Organization [facility] Address [address] [place] [address] Care Team Providers Name Role Phone Elsewhere, Pcp Primary Care Provider Unavailable Reason for Visit Outpatient (Routine) - Closed Specialty Diagnoses / Procedures Referred By Contact Refer red To Contact General Surgery Diagnoses Malignant Neoplasm Of Pancreas (HCC) Deborah Murray M.B.B.S. [facility] [address] [place] [address] Referral ID Status Reason Start Date Expiration Date Visits Requ ested Visits Authorized [id number] Closed 12/14/2020 12/14/2021 1 1 Encounter Details Date Type Department Care Team Description 12/31/2020 Comprehensive Visit Division of Reji Travis Pancreas (HCC) (Primary Dx); Hepatobiliary and Chanelle Wilks, Malignant Neoplasm Of Pancreas (HCC); Pancreas Surgery in .S. Acute Pancreatitis With Infected Necrosi s Unspecified (HCC) [place], [place] [address] [facility] [address] [place] [phone] Social History Tobacco Use Types Packs/Day Years [...] How often do you attend yarsani or mandaen services? 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 - 12/31/2020 3:30 PM CDT SUBJECTIVE REASON FOR CONSULT Borderline resectable pancreatic adenocarcinoma. HISTORY OF PRESENT ILLNESS I am seeing Mr. Campbell, a 55-year-old male who I have previously seen in consultation at the time of his initial pancreas cancer diagnosis. 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 He has been undergoing multiple endoscopic necrosectomies by our GI Team with some intermittent chemotherapy by Dr. Murray which has been difficult for him to receive. He had a recent stent obstruction which has been resolved. He has had early restaging scans which reveal slowly resolving pancreatitis changes throughout his abdomen which involves much of the vasculature. His tumor remains localized and stable as does his tumor marker.His liver function tests are all essentially normalized. He has significant back pain which is relatively new which is his biggest complaint. ASSESSMENT / PLAN #1 Borderline resectable pancreatic adenocarcinoma Unfortunately, due to the severity of his pancreatitis changes, he will never be a candidate for anytype of surgical resection. He is having severe pain. I would him to have a visit back with our GI docs to see if there is a potential role for endoscopic celiac block versus with our Pain Team via percutaneous approach. Dr. Murray will continue to see if he is a candidate for any type of systemic therapywhich is certainly very difficult in the setting of this resolving inflammation. I would also have him visit with the radiation oncologists and may be a potential candidate for consolidative chemoradiation as destination therapy; unfortunately, no role for surgery. All questions answered. Reji Travis M.D., M.S. CT CT Job ID: [id number]/jason documented in this encounter Plan of Treatment Upcoming Encounters Date Type Specialty Care Team Description 06/22/2022 Lab Laboratory Medicine Maria Del Rosario Gomez AP RN, C.N.P., M.S. [address] [place] [address] [phone] (Mj godoy) 06/22/2022 Infusion Oncology Maria Del Rosario Gomez APRN, C.N .P., M.S. [address] [place] [address] [phone] (Mj godoy) 06/29/2022 Lab Laboratory Medicine Maria Del Rosario Gomez AP RN, C.N.P., M.S. [address] [place] [address] [phone] (Mj godoy) 06/29/2022 Infusion Oncology Maria Del Rosario Gomez APRN, C.N .P., M.S. [address] [place] [phone] (Mj godoy) documented as of this encounter Visit Diagnoses Diagnosis Pseudocyst Pancreas - Primary Malignant Neoplasm Of Pancreas (HCC) Acute Pancreatitis With Infected Necrosi s Unspecified (HCC) documented in this encounter Care Teams Small Animal Veterinarian Relationship Specialty Start Date End Date Elsewhere, Pcp PCP - General Family Medicine 08/12/20 documented as of this encounter
--- OUTSIDE RECORDS SUMMARY | 2022-06-18 16:17 | XMS_ITS | Encounter Summary ---
:1965 Author Organization [facility] Address [address] [place] [address] Care Team Providers Name Role Phone Elsewhere, Pcp Primary Care Provider Unavailable Reason for Visit Reason Comments OPAT Monitoring Complete Encounter Details Date Type Department Care Team Description 12/01/2020 Clinical Communication Section of Trell Dillon (Monitoring Infectious Diseases M, M.P.H., Complete ) in [facility] [address] [facility] [address] [place] [phone] Social History Tobacco Use Types Packs/Day Years [...] How often do you attend lutheran or anglican services? 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 - 12/01/2020 9:50 AM CDT Patient completed antimicrobial therapy on 11/29/2020 and their PICC was removed on 11/30/2020. The patient's OPAT Episode will now be completed and they will be removed from OPAT monitoring. documented in this encounter Plan of Treatment Upcoming Encounters Date Type Specialty Care Team Description 06/22/2022 Lab Laboratory Medicine Maria Del Rosario Gomez AP RN, C.N.P., M.S. [address] [place] [phone] (Mj godoy) 06/22/2022 Infusion Oncology Maria Del Rosario Gomez APRN, C.N .P., M.S. [address] [place] [address] [phone] (Mj godoy) 06/29/2022 Lab Laboratory Medicine Maria Del Rosario Gomez AP RN, C.N.P., M.S. [address] [place] [address] [phone] (Mj godoy) 06/29/2022 Infusion Oncology Maria Del Rosario Gomez APRN, C.N .P., M.S. [address] [place] [address] [phone] (Mj godoy) documented as of this encounter Visit Diagnoses Not on filedocumented in this encounter Care Teams Precision Layout 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
--- OUTSIDE RECORDS SUMMARY | 2022-06-18 16:17 | XMS_ITS | Encounter Summary ---
:1965 Author Organization [facility] Address [address] [place] [address] Care Team Providers Name Role Phone Elsewhere, Pcp Primary Care Provider Unavailable Reason for Referral Outpatient (Routine) - Closed Specialty Diagnoses / Procedures Referred By Contact Refer red To Contact Oncology Bandar Zurita M.Maria.B.S . [facility] [address] [place] [phone] Referral ID Status Reason Start Date Expiration Date Visits Requ ested Visits Authorized [id number] Closed 12/04/2020 12/04/2021 1 1 Reason for Visit Reason Comments Abdominal Pain Encounter Details Date Type Department Care Team Description 12/03/2020 Clinical Communication Department of Reuben Manzanares A bdominal Pain Oncology in R.N., O.C[address] [place] [phone] Social History Tobacco Use Types Packs/Day Years [...] How often do you attend rastafarian or confucianism services? 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 - 12/04/2020 4:51 PM CDT Addended by: BANDAR ZURITA on: 12/04/2020 04:51 PM Modules accepted: Orders Telephone Encounter - Bandar Zurita M.B.BRiazS. - 12/04/2020 3:50 PM CDT The return orders were placed and supposed to be on 11/27 but it appeared that he had to undergo ERCP. Can we use the same orders and to see him next week or after? Telephone Encounter - Jyoti Jiménez R.N., O.C.N. - 12/04/2020 11:49 AM CDT SUBJECTIVE CHIEF COMPLAINT / REASON FOR CALL Abdominal Pain Information Discussed No records in Care Everywhere from [facility]. Call placed to patient to follow up on his abdominal pain, patient reports he did not go to the emergency room. He reports he ended up having his go get an enema, he reports after the enema, he had an extra-large formed bowel movement which relieved the majority of his abdominal discomfort he was experiencing. He denies blood in the stool. He denies nausea. He reports he was able to eat and drink today. He denies abdominal bloating, and reports he is passing flatus. He denies fever chills or shortness of breath at this time. He is rating his abdominal pain 3/10, he is taking his oxycodone has needed for her abdominal discomfort. We discussed his bowel regimen, he reports he has not been taking the Senokot or MiraLax consistently. We reviewed his current prescription for Senokot was 3 tablets twice a day, and is MiraLax 1 cap full twice a day. He stated he has not been doing, but will start today. Patient stated he is exercising on the stationary bike 15 minutes a day. Patient inquiring what his follow up visits should be with Dr. Zurita, Dr. Zurita's last note from 11/06, stated we will plan to see back in 3 weeks for follow-up I will follow up with Dr. Zurita of future plan. PLAN Recommended the patient increase the fiber content in his diet, we discussed high-fiber foods. Recommended patient to drink at least 64-72 oz of fluid a day. Recommended patient to continue exercising daily. Recommended patient resume his previous regimen of Senokot 3 tablets by mouth 2 times a day, and MiraLax 1 cap full twice a day. We discussed if he has diarrhea he should hold above. Recommended patient to contact the care team or the after hours number if the abdominal pain returns. Patient will contact the care team with any new or worsening symptoms. Patient verbalizes understanding and agreeable to the plan. Disposition/Recommendation: self-care (see note) appropriate at this time, patient encouraged to call back with questions Information/Education: patient/caller able to teach back Caller agreeable to plan of care: yes The following references were used: nursing clinical judgement Jyoti Jiménez R.N., O.C.N. Telephone Encounter - Vy Parry R.N. - 12/03/2020 3:44 PM CDT Sent to ED in [place]. Should be viewable in Care Everywhere. If discharged, will need follow up Monday. If admitted - I will follow up on Monday. Telephone Encounter - Vy Parry R.N. - 12/03/2020 3:31 PM CDT SUBJECTIVE CHIEF COMPLAINT / REASON FOR CALL Abdominal Pain ASSESSMENT I called Mr. Campbell. He a history of pancreas cancer, but most recently being treated for necrotizingpancreatitis. He has now completed antibiotics. He shares to have new onset right sided abdominal pain, from his belly button to his back. This is causing him to double over. Previously, his pain was most noted on the left side of his abdomen. He does share to having some right sided pain, but this isdifferent. He has been having daily stools, with the exception of today. The Monday and Monday he did have smaller, harder stools, but does believe he was able to pass all his stool. He denies any abdominal bloating. He is passing gas and burping. Eating worsens his pain. He is short of breath, due to the severe pain, but denies any chest pains. He just took MiraLAX. He denies any urinary changes. He underwent ERCP on 11/27/2020. PLAN Recommended that Mr. Campbell report to the nearest emergency department for severe onset pain. We did discuss waiting to see if MiraLAX is helpful, but as he is not distended and doesn't feel like he is retaining stool, may not be constipation. Being evaluated in the emergency department is the quickestway to seek help and control his pain. He is agreeable to this. Will continue to follow in his care,and call in follow up. Updated TRAMAINE Padilla Ma, who is agreeable with the plan. Disposition/Recommendation: recommended to report to the nearest emergency department. Information/Education: patient/caller able to teach back. Caller agreeable to plan of care: yes. The following references were used: nursing clinical judgement. Telephone Encounter - Jordan Grullon - 12/03/2020 1:45 PM CDT Do we have a valid auth to speak with caller? Self Reason for call: Patient is having pain that radiates from his stomach to his back and he said pain pills are not even touching it. Please call Thank you, Jordan 3D Animator RST ONC LORELEIO Med Aa POD 1 documented in this encounter Plan of Treatment Upcoming Encounters Date Type Specialty Care Team Description 06/22/2022 Lab Laboratory Medicine Maria Del Rosario Gomez AP RN, C.N.P., M.S. [address] [place] [phone] (Mj godoy) 06/22/2022 [facility] C.N .P., M.S. [address] [place] [phone] (Mj godoy) 06/29/2022 Lab [facility], C.N.P., M.S. [address] [place] [phone] (Mj godoy) 06/29/2022 [facility], C.N .P., M.S. [address] [place] [phone] (Mj godoy) Scheduled Referrals Name Type Priority Associated Diagnoses Order S [facility] Oncology office Outpatient Referral Routine Expec sally: visit (clinic) 12/14/2020 (Approximate), Expires: 12/05/2023 documented as of this encounter Results Glucose, Fasting (12/14/2020 1:32 PM CDT) P athologist Signature Glucose, P 88 70 - 100 12/14/2020 DTL mg/dL 2:43 PM CDT Last Intake 10 hr 12/14/2020 DTL 2:12 PM CDT Specimen Anatomical Collection Method Collection Time Receive d Time (Source) Location / / Volume Laterality Blood (Blood, 12/14/2020 1:32 PM 12/15/19 2:12 Venous) CDT PM CDT Bandar Valera LAB BLOOD NON ADD-ON Performing Organization Address City/State/ZIP Code Phon e Number [facility] - 200 [place], [place] [address] [facility] [place] [address] [facility] 200 [facility] (ABNORMAL) Comprehensive Metabolic Panel (12/14/2020 1:32 PM CDT) P athologist Signature Potassium, S [...] 12/14/2020 DTL Black/ mL/min/BSA 2:50 PM CDT Martiniquais Comment: ----ADDITIONAL INFORMATION---- Estimated GFR calculated using [...] (ALT), 91 (H) 7 - 55 U/L 021 2:50 PM CDT DTL S Bilirubin, Total, S 1.1 <=1.2 mg/dL 12/14/2020 2:50 PM CDT DTL Specimen Anatomical Collection Method Collection Time Receive d Time (Source) Location / / Volume Laterality Blood (Blood, 12/14/2020 1:32 PM 12/15/19 21 2:11 Venous) CDT PM CDT Bandar Brizuela. LAB BLOOD ADD-ON Performing Organization Address City/State/ZIP Code Phon e Number [facility] - [address] [place] [phone] [facility] [place] [address] [facility] 200 [facility] (ABNORMAL) CBC with Differential, Blood (12/14/2020 1:32 PM CDT) [facility] gist Method Time Signature Hemoglobin 9.8 (L) [...] 12/15/19 21 2:11 Venous) CDT PM CDT Bandar RussoS. LAB BLOOD ADD-ON Performing Organization Address City/State/ZIP Code Phon e Number [facility] - 200 [place], [place] [address] [facility] [place] [address] [facility] 200 [facility] (ABNORMAL) Carbohydrate Antigen 19-9 (CA 19-9) (12/14/2020 1:32 PM CDT) Analysis Performed At Patho logist Time Signature Carbohydrate Ag 40 (H) <35 U/mL 12/14/2020 [facility] 19-9, S 6:26 PM CDT Comment: ----ADDITIONAL INFORMATION---- The testing method is an immunoenzymatic assay manufactured by [employer] and performed on the [employer] 800. ? Values obtained with different assay met hods or kits may be different and cannot be used inte rchangeably. ? Test results cannot be interpreted as ab solute evidence for the presence or absence of malignant disease. Specimen Anatomical Collection Method Collection Time Receive d Time (Source) Location / / Volume Laterality Blood (Blood, 12/14/2020 1:32 PM 12/15/19 21 5:40 Venous) CDT PM CDT Bandar Valera LAB BLOOD ADD-ON Performing Organization Address City/State/ZIP Code Phon e Number [facility] [address] [place] [address] [facility] [place] [address] Laboratory Medicine and Pathology [address] [place] documented in this encounter Visit Diagnoses Diagnosis Malignant Neoplasm Of Pancreas (HCC) - P rimary documented in this encounter Care Teams Department Store Manager Relationship Specialty Start Date End Date Elsewhere, Pcp PCP - General Family Medicine 08/12/20 documented as of this encounter
--- OUTSIDE RECORDS SUMMARY | 2022-06-18 16:17 | XMS_ITS | Encounter Summary ---
:1965 Author Organization [facility] Address [address] [place] [address] Care Team Providers Name Role Phone Elsewhere, Pcp Primary Care Provider Unavailable Reason for Visit Reason Comments Med Refill Encounter Details Date Type Department Care Team Description 12/22/2020 Refill Department of Oncology in [place], Allen NavarreteB.S. Med Refill [place], [place] [address] [facility] [address] [place] [address] [place] [address] [phone] Social History Tobacco Use Types Packs/Day Years [...] How often do you attend rastafarian or adventism services? 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 [address] [place] [phone] (Wo rk) 06/22/2022 Infusion Oncology Maria Del Rosario Gomez APRN, C.N .P., M.S. [address] [place] [phone] (Wo rk) 06/29/2022 Lab Laboratory Medicine Maria Del Rosario Gomez AP RN, C.N.P., M.S. [address] [place] [phone] (Wo rk) 06/29/2022 Infusion Oncology Maria Del Rosario Gomez APRN, C.N .P., M.S. [address] [place] [phone] (Wo rk) documented as of this encounter Visit Diagnoses Not on filedocumented in this encounter Care Teams Office Machine Service Supervisor Relationship Specialty Start Date End Date Elsewhere, Pcp PCP - General Family Medicine 08/12/20 documented as of this encounter
--- OUTSIDE RECORDS SUMMARY | 2022-06-18 16:17 | XMS_ITS | Encounter Summary ---
:1965 Author Organization [facility] Address [address] [place] [address] Care Team Providers Name Role Phone Elsewhere, Pcp Primary Care Provider Unavailable Encounter Details Date Type Department Care Team Description 11/30/2020 Orders Only Division of [place], [place] Pancreatitis Acute (HCC) (Primary Dx); Gastroenterology in B, MRiazD. Unspecified Infectious Disease [place], [place] [address] [facility] [address] [place] [phone] Social History Tobacco Use Types Packs/Day Years [...] How often do you attend evangelical or denominational services? 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 [address] [place] [phone] (Wo rk) 06/22/2022 Infusion Oncology Maria Del Rosario Gomez APRN, C.N .P., M.S. [address] [place] [phone] (Wo rk) 06/29/2022 Lab Laboratory Medicine Maria Del Rosario Gomez AP RN, C.N.P., M.S. [address] [place] [phone] (Wo rk) 06/29/2022 Infusion Oncology Maria Del Rosario Gomez APRN, C.N .P., M.S. [address] [place] [phone] (Wo rk) documented as of this encounter Visit Diagnoses Diagnosis Pancreatitis Acute (HCC) - Primary Unspecified Infectious Disease documented in this encounter Care Teams Automatic Lump Making Machine Tender Relationship Specialty Start Date End Date Elsewhere, Pcp PCP - General Family Medicine 08/12/20 documented as of this encounter
--- OUTSIDE RECORDS SUMMARY | 2022-06-18 16:17 | XMS_ITS | Encounter Summary ---
:1965 Author Organization [facility] Address [address] [place] [address] Care Team Providers Name Role Phone Elsewhere, Pcp Primary Care Provider Unavailable Encounter Details Date Type Department Care Team Description 12/12/2020 Orders Only Division of Gabbi Pathak N eoplasm Gastroenterology in David Garcia Of Pancreas Head [place], [place] [address] [facility] (HCC) (Primary Dx) [address] [place] [phone] Social History Tobacco Use Types Packs/Day Years [...] How often do you attend restoration or christianity services? 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 [address] [place] [phone] (Wo rk) 06/22/2022 Infusion Oncology Maria Del Rosario Gomez APRN, C.N .P., M.S. [address] [place] [phone] (Wo rk) 06/29/2022 Lab Laboratory Medicine Maria Del Rosario Gomez AP RN, C.N.P., M.S. [address] [place] [phone] (Wo rk) 06/29/2022 Infusion Oncology Maria Del Rosario Gomez APRN, C.N .P., M.S. [address] [place] [phone] (Wo rk) documented as of this encounter Visit Diagnoses Diagnosis Malignant Neoplasm Of Pancreas Head (HCC ) - Primary documented in this encounter Care Teams Produce Department Manager Relationship Specialty Start Date End Date Elsewhere, Pcp PCP - General Family Medicine 08/12/20 documented as of this encounter
--- OUTSIDE RECORDS SUMMARY | 2022-06-18 16:17 | XMS_ITS | Encounter Summary ---
:1965 Author Organization [facility] Address [address] [place] [address] Care Team Providers Name Role Phone Elsewhere, Pcp Primary Care Provider Unavailable Reason for Visit Auth/Cert Specialty Diagnoses / Procedures Referred By Contact Refer red To Contact Diagnoses Obstruction Intestinal (HCC) Abdominal pain Procedures ETU Referral ID Status Reason Start Date Expiration Date Visits Requ ested Visits Authorized [id number] 1 1 Encounter Details Date Type Department Care Team Description 12/11/2020 Hospital Encounter Department [place] [address] [place] [address] Social History Tobacco Use Types Packs/Day Years [...] How often do you attend hindu or mandaen services? 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 nystatin (MYCOSTATIN) Take 500,000 Units by 0 12/12/2020 100,000 unit/mL mouth 4 (four) times suspension a day as needed. Only uses when on antibiotics ondansetron (ZOFRAN) 8 Take 1 tablet (8 [...] Gomez AP RN, C.N.P., M.S. [address] [place] [phone] (Mj rk) 06/22/2022 Infusion Oncology Maria Del Rosario Gomez APRN, C.N .P., M.S. [address] [place] [phone] (Mj rk) 06/29/2022 Lab Laboratory Medicine Maria Del Rosario Gomez AP RN, C.N.P., M.S. [address] [place] [phone] (Wo rk) 06/29/2022 Infusion Oncology Maria Del Rosario Gomez APRN, C.N .P., M.S. [address] [place] [phone] (Wo rk) documented as of this encounter Procedures Procedure Name Priority Date/Time Associated Diagnosis Comme nts FL FLUORO LESS THAN Routine 12/11/2020 3:20 PM Re sults for this 1 HOUR CDT procedure are i n the results section. documented in this encounter Results FL Fluoro Less Than 1 Hour (12/11/2020 3:20 PM CDT) Specimen (Source) Anatomical Location Collection Method / Collectio n Time Received Time / Laterality Volume Narrative ERCP LOS RST - 12/11/2020 3:21 PM CDT This exam does not require a radiologist review or interpretation. Please refer to the patient's medical record on this date for clinical details. Vane WONG FLUOROSCOPY PROCEDURES Performing Organization Address City/State/ZIP Code Phon e Number ERCP LOS RST documented in this encounter Visit Diagnoses Not on filedocumented in this encounter Care Teams Soap Slabber Relationship Specialty Start Date End Date Elsewhere, Pcp PCP - General Family Medicine 08/12/20 documented as of this encounter
--- OUTSIDE RECORDS SUMMARY | 2022-06-18 16:17 | XMS_ITS | Encounter Summary ---
:1965 Author Organization [facility] Address [address] [place] [address] Care Team Providers Name Role Phone Elsewhere, Pcp Primary Care Provider Unavailable Encounter Details Date Type Department Care Team Description 12/03/2020 Clinical Communication Division of Ernesto Curiel Gastroenterology ej Sifuentes M.D. [place], [place] [address] [facility] [address] [place] [phone] Social History Tobacco Use Types Packs/Day Years [...] How often do you attend muslim or hoahaoism services? 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 [address] [place] [phone] (Wo rk) 06/22/2022 Infusion Oncology Maria Del Rosario Gomez APRN, C.N .P., M.S. [address] [place] [phone] (Wo rk) 06/29/2022 Lab Laboratory Medicine Maria Del Rosario Gomez AP RN, C.N.P., M.S. [address] [place] [phone] (Wo rk) 06/29/2022 Infusion Oncology Maria Del Rosario Gomez APRN, C.N .P., M.S. [address] [place] [phone] (Wo rk) documented as of this encounter Visit Diagnoses Not on filedocumented in this encounter Additional Health Concerns Infection Onset Date Last Indicated Resolved Time COVID19 Pending 12/11/2020 12/11/2020 12/11/2020 9:32 AM CDT documented as of this encounter Care Teams Hospital Liaison Relationship Specialty Start Date End Date Elsewhere, Pcp PCP - General Family Medicine 08/12/20 documented as of this encounter
--- OUTSIDE RECORDS SUMMARY | 2022-06-18 16:17 | XMS_ITS | Encounter Summary ---
:1965 Author Organization [facility] Address [address] [place] [address] Care Team Providers Name Role Phone Elsewhere, [...] How often do you attend yazidi or alevism services? 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 [address] [place] [phone] (Wo jayne) 06/22/2022 Infusion Oncology Maria Del Rosario Gomez APRN, Remy.N .P., M.S. [address] [place] [address] [phone] (Wo rk) 06/29/2022 Lab Laboratory Medicine Maria Del Rosario Gomez AP RN, C.N.P., M.S. [address] [place] [phone] (Wo rk) 06/29/2022 Infusion Oncology Maria Del Rosario Gomez APRN, C.N .Pamela., M.S. [address] [place] [phone] (Wo rk) documented as of this encounter Procedures Procedure Name Priority Date/Time Associated Diagnosis Comme nts GI AND GENERAL Routine 12/11/2020 12:35 PM Result s for this SURGERY IMAGE EXAM CDT procedure are in the results section. documented in this encounter Results ERCP-GI And General Surgery Image Exam (12/11/2020 12:35 PM CDT) Specimen (Source) Anatomical Collection Method Collection Time Re ceived Time Location / / Volume Laterality 12/11/2020 12:34 PM CDT Narrative IIMS - 12/11/2020 3:20 PM CDT This order has been created [...] on filedocumented in this encounter Care Teams Bulb Brander Relationship Specialty Start Date End Date Elsewhere, Pcp PCP - General Family Medicine 08/12/20 documented as of this encounter
--- OUTSIDE RECORDS SUMMARY | 2022-06-18 16:18 | XMS_ITS | Encounter Summary ---
:[address] [facility] Address [address] [place] [address] Care Team Providers Name Role Phone Elsewhere, Pcp Primary Care Provider Unavailable Encounter Details Date Type Department Care Team Description 11/10/2020 Ancillary Procedure Department of Gastroenterology Social History [...] How often do you attend shinto or zoroastrian services? 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 [address] [place] [address] [phone] (Wo jayne) 06/22/2022 Infusion Oncology Maria Del Rosario Gomez APRN, Remy.N .P., M.S. [address] [place] [address] [phone] (Wo rk) 06/29/2022 Lab Laboratory Medicine Maria Del Rosario Gomez AP RN, C.N.P., M.S. [address] [place] [address] [phone] (Wo rk) 06/29/2022 Infusion Oncology Maria Del Rosario Gomez APRN, Remy.N .Pamela., M.S. [address] [place] [address] [phone] (Wo rk) documented as of this encounter Procedures Procedure Name Priority Date/Time Associated Comments Diagnosis GASTROENTEROLOGY IMAGE Routine 11/10/2020 8:15 Re sults for this EXAM AM BURIAL VAULT SETTER procedure are i n the results section. documented in this encounter Results Upper EUS-Gastroenterology Image Exam (11/10/2020 8:15 AM BURIAL VAULT SETTER) Specimen (Source) Anatomical Collection Method Collection Time Re ceived Time Location / / Volume Laterality 11/10/2020 8:11 AM BURIAL VAULT SETTER Narrative IIMS - 11/10/2020 10:20 AM BURIAL VAULT SETTER This order has been created and auto-finalized [...] on filedocumented in this encounter Care Teams Laborer Pipelines Relationship Specialty Start Date End Date Elsewhere, Pcp PCP - General Family Medicine 08/12/20 documented as of this encounter
--- OUTSIDE RECORDS SUMMARY | 2022-06-18 16:18 | XMS_ITS | Encounter Summary ---
:1965 Author Organization [facility] Address [address] [place] [address] Care Team Providers Name Role Phone Elsewhere, Pcp Primary Care Provider Unavailable Encounter Details Date Type Department Care Team Description 11/26/2020 Lab Department of Infusion Roxie Adorno L minoo Term Antibiotic Treatment (Primary Dx); Therapy in [place], P.A.-C. Bacteremia [place] [address] [facility] [address] [place] [phone] (Wo rk) Social History Tobacco Use Types [...] How often do you attend mandaen or sikh services? 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 [address] [place] [address] 55 [phone] (Wo rk) 06/22/2022 Infusion Oncology Maria Del Rosario Gomez APRN, C.N .P., M.S. [address] [place] [address] 55 [phone] (Wo rk) 06/29/2022 Lab Laboratory Medicine Maria Del Rosario Gomez AP RN, C.N.P., M.S. [address] [place] [address] 55 [phone] (Wo rk) 06/29/2022 Infusion Oncology Maria Del Rosario Gomez APRN, Remy.N .P., M.S. [address] [place] [address] [phone] (Wo rk) documented as of this encounter Procedures Procedure Name Priority Date/Time Associated Comments Diagnosis CBC WITH DIFFERENTIAL, B Routine 11/26/2020 10:37 Yardage Control Operator Forming Results for this AM CDT Antibiotic procedure are i n Treatment the results section. ALANINE AMINOTRANSFERASE Routine 11/26/2020 10:37 Yardage Control Operator Forming Results for this (ALT), S/P AM CDT Antibiotic procedure are i n Treatment the results section. CREATININE WITH EGFR, Routine 11/26/2020 10:37 Yardage Control Operator Forming Re sults for this S/P AM CDT Antibiotic procedure are i n Treatment the results section. documented in this encounter Results Creatinine with Estimated GFR (11/26/2020 10:37 AM CDT) athologist Signature Creatinine 0.76 0.74 - 11/26/2020 DTL 1.35 mg/dL 11:26 AM CDT eGFR-Non >90 >=60 11/26/2020 DTL Black/ mL/min/BSA 11:26 AM CDT Belizean Comment: ----ADDITIONAL INFORMATION---- Estimated GFR calculated using the 2009 CKD_EPI creatinine equation. eGFR-Black/ >90 >=60 mL/min/BSA 2020 11:26 AM CDT DTL Comment: ----ADDITIONAL INFORMATION---- Estimated GFR calculated using the 2009 CKD_EPI creatinine equation. Specimen Anatomical Collection Method Collection Time Receive d Time (Source) Location / / Volume Laterality Blood (Blood, 11/26/2020 10:37 11/26/2020 Venous) AM CDT 10:51 AM CDT Roxie Adorno P.A.-C. LAB BLOOD ADD-ON Performing Organization Address City/State/ZIP Code Phon e Number [facility] - [address] [place], [place] [address] [employer] [facility] [place] [address] [facility] 200 [facility] (ABNORMAL) CBC with Differential, Blood (11/26/2020 10:37 AM CDT) [facility] Method Time Signature Hemoglobin 9.6 (L) 13.2 - 11/26/2020 DTL 16.6 g/dL 11:23 AM CDT Hematocrit 31.9 (L) 38.3 - 11/26/2020 DTL 48.6 % 11:23 AM CDT Erythrocytes 4.06 (L) 4.35 - 11/26/2020 DTL 5.65 11:23 AM CDT x10(12)/L MCV 78.6 78.2 - 11/26/2020 DTL 97.9 fL 11:23 AM CDT RBC Distrib Width 18.7 (H) 11.8 - 11/26/2020 DTL 14.5 % 11:23 AM CDT Platelet Count 365 (H) 135 - 317 11/26/2020 DTL x10(9)/L 11:23 AM CDT Leukocytes 10.0 (H) 3.4 - 9.6 11/26/2020 DTL x10(9)/L 11:23 AM CDT Neutrophils 7.47 (H) 1.56 - 11/26/2020 DTL 6.45 11:23 AM CDT x10(9)/L Lymphocytes 1.36 0.95 - 11/26/2020 DTL 3.07 11:23 AM CDT x10(9)/L Monocytes 0.72 0.26 - 11/26/2020 DTL 0.81 11:23 AM CDT x10(9)/L Eosinophils 0.35 0.03 - 11/26/2020 DTL 0.48 11:23 AM CDT x10(9)/L Basophils 0.08 0.01 - 11/26/2020 DTL 0.08 11:23 AM CDT x10(9)/L Specimen Anatomical Collection Method Collection Time Receive d Time (Source) Location / / Volume Laterality Blood (Blood, 11/26/2020 10:37 11/26/2020 Venous) AM CDT 11:13 AM CDT Roxie Adorno P.A.-C. LAB BLOOD ADD-ON Performing Organization Address [facility] Phon e Number [facility] [address] (ABNORMAL) ALT (Alanine Aminotransferase) (11/26/2020 10:37 AM CDT) [facility] gist Method Time Signature Alanine 66 (H) 7 - 55 11/26/2020 DTL Aminotransferase U/L 11:26 AM CDT (ALT), S Specimen Anatomical Collection Method Collection Time Receive d Time (Source) Location / / Volume Laterality Blood (Blood, 11/26/2020 10:37 11/26/2020 Venous) AM CDT 10:51 AM CDT Roxie Adorno P.A.-C. LAB BLOOD ADD-ON Performing Organization Address City/[facility] Phon e Number [facility] [address] [place], [place] [address] [place] [address] documented in this encounter Visit Diagnoses Diagnosis Prison Antibiotic Treatment - Primary Bacteremia documented in this encounter Administered Medications Inactive Administered Medications - up to 3 most recent administrations Medication Order MAR Action Action Date Dose Rate Site sodium chloride 0.9 % injection Given 11/26/2020 10:38 AM CDT 20 mL 10-30 mL 10-30 mL, intra-catheter, As needed, line care, Starting on Sandra 11/26/20 at 1034, When no infusion to maintain patency. Flush every 7 days to each lumen. documented in this encounter Care Teams Statistical Geneticist Relationship Specialty Start Date End Date Elsewhere, Pcp PCP - General Family Medicine 08/12/20 documented as of this encounter
--- OUTSIDE RECORDS SUMMARY | 2022-06-18 16:18 | XMS_ITS | Encounter Summary ---
:1965 Author Organization [facility] Address [address] [place] [address] Care Team Providers Name Role Phone Elsewhere, Pcp Primary Care Provider Unavailable Reason for Referral Outpatient (Routine) - Closed Specialty Diagnoses / Procedures Referred By Contact Refer red To Contact Diagnoses Pancreatitis Acute (HCC) Ernesto Curiel M.D. [facility] Procedures EUS [address] [place] [address] Referral ID Status Reason Start Date Expiration Date Visits Requ ested Visits Authorized [id number] Closed 11/13/2020 11/13/2021 1 1 SPLANTER Encounter Details Date Type Department Care Team Description 11/13/2020 Orders Only Division of Ernesto Curiel Pancreatitis Acute Gastroenterology ej Sifuentes M.D. (HCC) (Primary Dx) [place], [place] [address] [facility] [address] [place] [phone] Social History Tobacco Use Types Packs/Day Years [...] How often do you attend presybeterian or hindu services? 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 [address] [place] [address] [phone] (Mj rk) 06/22/2022 Infusion Oncology Maria Del Rosario Gomez APRN, C.N .P., M.S. [address] [place] [address] 55 [phone] (Mj rk) 06/29/2022 Lab Laboratory Medicine Maria Del Rosario Gomez AP RN, C.N.P., M.S. [address] [place] [address] [phone] (Mj rk) 06/29/2022 Infusion Oncology Maria Del Rosario Gomez APRN, C.N .P., M.S. [address] [place] [address] [phone] (Mj godoy) Scheduled Orders Name Type Priority Associated Diagnoses Order S chedule EUS GI Routine Pancreatitis Acute (HCC) Exp ected: 11/13/2020 (Approximate), Expires: 2023 documented as of this encounter Visit Diagnoses Diagnosis Pancreatitis Acute (HCC) - Primary documented in this encounter Care Teams Agriculture Sales Account Manager Relationship Specialty Start Date End Date Elsewhere, Pcp PCP - General Family Medicine 08/12/20 documented as of this encounter
--- OUTSIDE RECORDS SUMMARY | 2022-06-18 16:18 | XMS_ITS | Encounter Summary ---
:1965 Author Organization [facility] Address [address] [place] [address] Care Team Providers Name Role Phone Elsewhere, [...] How often do you attend sabianist or methodist services? 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 [address] [place] [address] [phone] (Wo jayne) 06/22/2022 Infusion Oncology Maria Del Rosario Gomez APRN, Remy.N .P., M.S. [address] [place] [address] [phone] (Wo rk) 06/29/2022 Lab Laboratory Medicine Maria Del Rosario Gomez AP RN, C.N.P., M.S. [address] [place] [address] [phone] (Wo rk) 06/29/2022 Infusion Oncology Maria Del Rosario Gomez APRN, C.N .Pamela., M.S. [address] [place] [address] [phone] (Wo rk) documented as of this encounter Procedures Procedure Name Priority Date/Time Associated Diagnosis Comme nts GI AND GENERAL Routine 11/10/2020 8:00 AM Results for this SURGERY IMAGE EXAM ARTS EDUCATION TEACHER procedure are in the results section. documented in this encounter Results UPPER EUS-GI And General Surgery Image Exam (11/10/2020 8:00 AM ARTS EDUCATION TEACHER) Specimen (Source) Anatomical Collection Method Collection Time Re ceived Time Location / / Volume Laterality 11/10/2020 7:51 AM ARTS EDUCATION TEACHER Narrative IIMS - 11/10/2020 9:59 AM ARTS EDUCATION TEACHER This order has been created and auto-finalized [...] on filedocumented in this encounter Care Teams Survey Technician Relationship Specialty Start Date End Date Elsewhere, Pcp PCP - General Family Medicine 08/12/20 documented as of this encounter
--- OUTSIDE RECORDS SUMMARY | 2022-06-18 16:18 | XMS_ITS | Encounter Summary ---
:1965 Author Organization [facility] Address [address] [place] [address] Care Team Providers Name Role Phone Elsewhere, Pcp Primary Care Provider Unavailable Reason for Referral MRI/CAT/PET Scan (Routine) - Closed Specialty Diagnoses / Procedures Referred By Contact Refer red To Contact Radiology Diagnoses Acute Pancreatitis With Infected Necrosis [facility]CC[facility]en Pelvis with IV Contrast P.A.-C. [address] [place], [place] [address] Referral ID Status Reason Start Date Expiration Date Visits Requ ested Visits Authorized [id number] Closed 11/11/2020 11/11/2021 1 1 Reason for Visit MRI/CAT/PET Scan (Routine) - Closed Specialty Diagnoses / Procedures Referred By Contact Refer red To Contact Radiology Diagnoses Acute Pancreatitis With Infected Necrosis Unspecified ([facility]CC[facility] Abdomen Pelvis with IV Contrast P.A.-C. [address] [place], [place] [phone] Referral ID Status Reason Start Date Expiration Date Visits Requ ested Visits Authorized [id number] Closed 11/11/2020 11/11/2021 1 1 Encounter Details Date Type Department Care Team Description 11/26/2020 Hospital Encounter Department of Gina Aranda Pancreatitis Radiology, Bradley Flores P.A.-C. With Infected Building, in 200 [facility] Necrosis Unspecified [place], [place] ([facility]) [place] [address] 200 [facility] [phone] [place], [place] (Work) [phone] Social History Tobacco Use Types Packs/Day Years [...] How often do you attend synagogue or temple services? 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 ertapenem (INVanz) 100 Infuse 10 mL (1 g 30 mL 0 202011/29/2020 mg/mL total) into a venous injectionIndications: catheter daily for 3 Intra-abdominal days Indications: infection, community Intra-abdominal acquired infection, community acquired. Tentative stop date: 11/25/2020 pantoprazole (PROTONIX) Take 1 tablet (40 mg 90 tablet 3 10/02/2021 40 mg EC tablet total) by mouth every morning before breakfast. acetaminophen (TYLENOL) Take 1 tablet (500 mg 0 1 10/16/2019 01/01/2021 500 mg tablet total) by mouth every 6 (six) hours. nystatin (MYCOSTATIN) 500,000 Units. 0 11/02/2020 12/11/2020 100,000 unit/mL suspension nystatin (MYCOSTATIN) Take 500,000 Units by 0 [...] 7-10 of 10 Indication: Chronic Pain/Nonacute Pain. sodium chloride (Normal 10 mL by 30 Syringe 0 10/30/2020 0 12/11/2020 Saline Flush) 0.9 % intra-catheter route injection as needed for line care. For use with PICC documented as of this encounter Nursing Notes Nina German RRiazN. - 11/26/2020 9:15 AM CDT PICC Contrast Injection Documentation: What type of PICC? Power Power? Yes Blood return verified? Yes VAPP Orders (Nurse to use Saline or Heparin post scan): For MR Power Injection, was tip placement verified? Yes *For CT: Needs PRE and POST [employer] to determine tip placement* documented in this encounter Plan of Treatment Upcoming Encounters Date Type Specialty Care Team Description 06/22/2022 Lab Laboratory Medicine Maria Del Rosario Gomez AP RN, C.N.P., M.S. [address] [place] [address] [phone] (Mj godoy) 06/22/2022 Infusion Oncology Maria Del Rosario Gomez APRN, C.N .P., M.S. [address] [place] [address] [phone] (Mj godoy) 06/29/2022 Lab Laboratory Medicine Maria Del Rosario Gomez AP RN, C.N.P., M.S. [address] [place] [address] [phone] (Mj godoy) 06/29/2022 Infusion Oncology Maria Del Rosario Gomez APRN, C.N .P., M.S. [address] [place] [address] [phone] (Mj godoy) documented as of this encounter Procedures Procedure Name Priority Date/Time Associated Comments Diagnosis CT ABDOMEN PELVIS RAD - Routine 11/26/2020 10:35 Acute Pancreatitis Results for this WITH IV CONTRAST (most inpatients AM CDT With Infected proced ure are in and all Necrosis the results outpatients) Unspecified (HCC) section. documented in this encounter Results CT Abdomen Pelvis with IV Contrast (11/26/2020 10:35 AM CDT) Anatomical Region Laterality Modality Abdomen, Pelvis, Abdominal RST LOS, N/A Comp uted Tomography, Computed Abdominal ARZ LOS, Abdominal FLA LOS Dileep ography Specimen (Source) Anatomical Collection Method Collection Time Re ceived Time Location / / Volume Laterality 11/26/2020 11:14 AM CDT Impressions 11/26/2020 11:37 AM CDT Walled off necrosis in the pancreatic bed with extension to the pericolonic area on the left has decreased in size. Narrative 11/26/2020 11:37 AM CDT EXAM: ??CT ABDOMEN PELVIS WITH IV CONTRAST COMPARISON: ??CT dated 11/05/2020, 2020 and 07/26/2020 FINDINGS: Three transgastric pigtail stents are ag ain noted tip along the left medial walled off necrosis. Two transgastric ad ditional pigtail stent have been placed with along the left lateral walled necro sis near the descending colon. Metallic biliary stent. Previously noted loose ax ial stent in the transverse colon is no longer seen. Left gonadal vein embolizat ion coils. Extensive walled off necrosis in the manuel creatic bed with extension to the pericolonic area on the left has decreas ed in size. For example, a collection at the splenic hilum measures 5.2 x 2.4 cm in axial plane (series 6 image 48) compared to 6.3 x 3.4 cm previously. The collection inferior to the body of the pancreas measures 3.2 x 2.9 cm in axial plane (series 6 image 63) compared to 3.9 x 3.8 cm previously. The collection in the subdiaphragmatic spaces minimally decreased and measures 3.5 x 1.8 cm in a xial plane (series 6 image 35) compared to 4.1 x 1.6 cm previously. Pneumobilia. Air in the gallbladder. Sev ere narrowing of distal SMV, splenic vein, proximal main portal vein. Marked venous collaterals around the stomach. 2.4 x 1.9 cm mass in the uncinate proces s of the pancreas ??(series 6 image 62) is probably stable. Stable 1 cm ill-defined hypodense area i n the segment 5 of the liver (series 6 image 61). No other focal lesion is seen in the liver. Normal size spleen. Small ascites in the pelvis. Kidneys and adren al glands are unremarkable. Small left pleural effusion, slightly de creased. Stable tiny nodules in the right lung base. Procedure Note Houston Holt M.D. - 11/26/2020Forma tting of this note might be different from the original. EXAM: CT ABDOMEN PELVIS WITH IV CONTRAST COMPARISON: CT dated 11/05/2020, 10/26/19 and 07/26/2020 FINDINGS: Three transgastric pigtail stents are ag ain noted tip along the left medial walled off necrosis. Two transgastric ad ditional pigtail stent have been placed with along the left lateral walled necro sis near the descending colon. Metallic biliary stent. Previously noted loose ax ial stent in the transverse colon is no longer seen. Left gonadal vein embolizat ion coils. Extensive walled off necrosis in the manuel creatic bed with extension to the pericolonic area on the left has decreas ed in size. For example, a collection at the splenic hilum measures 5.2 x 2.4 cm in axial plane (series 6 image 48) compared to 6.3 x 3.4 cm previously. The collection inferior to the body of the pancreas measures 3.2 x 2.9 cm in axial plane (series 6 image 63) compared to 3.9 x 3.8 cm previously. The collection in the subdiaphragmatic spaces minimally decreased and measures 3.5 x 1.8 cm in a xial plane (series 6 image 35) compared to 4.1 x 1.6 cm previously. Pneumobilia. Air in the gallbladder. Sev ere narrowing of distal SMV, splenic vein, proximal main portal vein. Marked venous collaterals around the stomach. 2.4 x 1.9 cm mass in the uncinate proces s of the pancreas (series 6 image 62) is probably stable. Stable 1 cm ill-defined hypodense area i n the segment 5 of the liver (series 6 image 61). No other focal lesion is seen in the liver. Normal size spleen. Small ascites in the pelvis. Kidneys and adren al glands are unremarkable. Small left pleural effusion, slightly de creased. Stable tiny nodules in the right lung base. IMPRESSION: Walled off necrosis in the pancreatic be d with extension to the pericolonic area on the left has decreased in size. Gina Aranda P.A.-C. IMG CT PROCEDURES documented in this encounter Visit Diagnoses Diagnosis Acute Pancreatitis With Infected Necrosi s Unspecified (HCC) documented in this encounter Administered Medications Inactive Administered Medications - up to 3 most recent administrations Medication Order MAR Action Action Date Dose Rate Site iohexoL 300 mg iodine/mL solution Given 11/26/2020 9:25 AM CDT 1 40 mL 1-200 mL (OMNIPAQUE) 1-200 mL, intravenous, Once in imaging, contrast, Starting on Sandra 11/26/20 at 0828, For 1 dose, Imaging Protocol Orders, Dose per Radiant Medication Guidelines sodium chloride (PF) 0.9 % injection 1-1 00 mL Given 11/26/2020 9:25 AM CDT 50 mL 1-100 mL, intravenous, Once, On Sandra 3/18/21 at 0830, For 1 dose, Imaging Protocol Orders sodium chloride 0.9 % injection 10-30 mL Given 11/26/2020 10:15 AM CDT 30 mL 10-30 mL, intravenous, Every 7 days, First dose on Sandra 11/26/20 at 0900, Peripherally Inserted Central Catheter (PICC) Valved: When no infusion to maintain patency flush 10 mL per lumen. Given 11/26/2020 9:25 AM CDT 10 mL documented in this encounter Care Teams Tree Marker Relationship Specialty Start Date End Date Elsewhere, Pcp PCP - General Family Medicine 08/12/20 documented as of this encounter
--- OUTSIDE RECORDS SUMMARY | 2022-06-18 16:18 | XMS_ITS | Encounter Summary ---
:[address] [facility] Address [address] [place] [address] Care Team Providers Name Role Phone Elsewhere, Pcp Primary Care Provider Unavailable Encounter Details Date Type Department Care Team Description 11/27/2020 Anesthesia Event Division of Gastroenterology Anupam Uribe in [facility] elke Wilks APRN, COMMUNITY RELATIONS DIRECTOR [address] [facility] [address] [place] [address] [place], [place] [phone] Anesthesia Record Procedure Summary Procedure Name Responsible Anesthesiologist Anesthesia Start Ti me Anesthesia Stop Time ERCP Anupam Uribe APRN, 11/27/20 0803 0934 COMMUNITY RELATIONS DIRECTOR Events Date Time Event Comment 11/27/2020 0803 An Start Machine/Equipmen t Checked Infection Precautions Foll owed Procedure/Site Verified NPO Sta tus Verified Supine Standard ASA Mon itors Applied 0803 An Induction 0805 An Intubation 0807 Turnover to Proceduralist 0809 Proc Start 0913 Proc Fin 0914 Turnover to ANE Staff 0922 Airway Removal Criteria Met 0922 Extubation/Airway Removed 0923 an stop data 0934 An End I completed my h andoff to the receiving staff during [facility] ch we 1. Identified the patient 2. [...] mg/mL 150 mg propofol 10 mg/mL infusion 445.25 mg succinylcholine 20 mg/mL injection 120 mg ondansetron 4 mg/2 mL injection 4 mg phenylephrine 100 mcg/mL injection 900 mcg piperacillin-tazobactam IVPB 3.375 g 3.375 g Lactated Ringers Free Drip 350 mL Agents No agents on file. Blood [...] Power injectable; Securement dressing, Sutured; Dr. Wolf PICC Single Lumen Placement Date: 10/30/20; 10/30/20 142 by 0000 by Placement Time: 1425 Garret Moore Muroy a, Manna M, (created via procedure R.N. M.P.H., R .N. documentation); Cath Out Checklist Completed: Yes; Size: 3.0 Fr; Length: 51 cm; Orientation: Left; Location: Basilic; Site Prep: Chlorhexidine (Preferred); Local Anesth: Intradermal lidocaine; Initial Extremity Circumference: 26 cm; Initial Exposed Catheter: 2 cm; Inserted By: [facility]; Insertion Attempts: 1; Placement Verification: Blood return, Ultrasound, ECG guidance; Removal Date: 11/30/20 (by outside facility); Removal Reason: Completion of therapy ETT Placement Date: 11/27/20; 11/27/20804 by 11/27 09 by Placement Time: 804 Anupam Uribe, Anupam Darnell (created via procedure SKINNER PELTS, BRISA J, SKINNER PELTS, COMMUNITY RELATIONS DIRECTOR documentation); Mask Ventilation: Easy mask; Type: Standard ETT; Single Lumen Tube Size: 7 mm; Cuffed: Yes; Blade Size: Luz 2; Location: Oral; Grade View: Grade 2A; Insertion Attempts: 1; Placement Verification: Bilateral breath sounds, Positive ETCO2, Symmetrical chest wall movement; Removal Date: 11/27/20; Removal Time: 921 documented in this encounter Social History Tobacco [...] How often do you attend presybeterian or worship services? 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 documented as of this encounter OR Notes Anesthesia Postprocedure Evaluation - Anupam Uribe APRN, CRNA - 11/27/2020 9:34 AM CDT Patient: Adam Campbell Procedure Summary Date: 11/27/20 Room / Location: Division of Gastroenterology in [place], [place] Anesthesia Start: 802 Anesthesia Stop: 933 Procedures: ERCP ENDOSCOPIC ULTRASOUND (EUS) Diagnosis: Pancreatitis Acute (HCC) Scheduled Providers: Anupam Uribe APRN, CRNA Responsible Provider: Anupam Uribe APRN, CRNA Anesthesia Type: general ASA Status: 3 Anesthesia Type: general Last vitals Vitals Value Taken Time BP 97/69 11/27/20 0930 Temp 36.4 ??C 11/27/20 0927 Pulse 83 11/27/20 0934 Resp 16 11/27/20 0934 SpO2 99 % 11/27/20933 Vitals shown include unvalidated device data. Please [...] Hydration status: euvolemic Anesthesia Procedure Notes - Anupam Uribe APRN, CRNA - 11/27/2020 8:17 AM CDTAssociated Order(s): Airway Airway Date/Time: 11/27/2020 8:05 AM Performed by: Anupam Uribe APRN, CRNA Authorized by: Anupam Uribe APRN, CRNA Patient location during procedure: OR / Procedure Area PROCEDURE DETAILS: Mask difficulty assessment: easy mask Final airway type: direct laryngoscopy, intubation Laryngeal Manipulation: no Final airway difficulty of direct laryngoscopy (DL): 0-easy Final best view of glottic structures - Cormack/Lehane Score: grade 2A ETT location: oral Adult blade type: Luz 2 Adult tube size: 7 Adult ETT distance at teeth/gum: 23 Oral [...] event: no complications Anesthesia Preprocedure Evaluation - Celso Adams M.D. - 11/27/2020 7:26 AM CDT Preprocedure Anesthesia & H&P Assessment Procedure Summary Date/Time: 11/27/20 0745 Scheduled providers: Anupam Uribe APRN, CRNA Procedures: ERCP ENDOSCOPIC ULTRASOUND (EUS) Diagnosis: Pancreatitis Acute (HCC) [K85.90] Location: Division of Gastroenterology in [place], [place] Pertinent components of the patient's history [...] OBJECTIVE PHYSICAL EXAMINATION Airway (HEENT) Mallampati: I Cardiovascular Rhythm: Regular Pulmonary Pulmonary Assessment: Clear General / Constitutional Constitutional Assessment: Thin ASSESSMENT / PLAN ANESTHESIA PLAN ASA: 3 Anesthesia Plan: general Patient seen and allergies reviewed, anesthesia plan and risks discussed directly with patient /legal guardian or through an molding fitter. Risks/Benefits/Alternatives of Blood transfusion discussed with patient / legal guardian, including an opportunity to ask questions and/or decline some or all transfusion therapies. The patient / legalguardian consented to the use of all blood products, as deemed medically necessary documented in this encounter Plan of Treatment Upcoming Encounters Date Type Specialty Care Team Description 06/22/2022 Lab Laboratory Medicine Maria Del Rosario Gomez AP RN, C.N.P., M.S. [address] [place] [phone] (Mj godoy) 06/22/2022 Infusion Oncology Maria Del Rosario Gomez APRN, C.N .P., M.S. [address] [place] [phone] (Mj godoy) 06/29/2022 Lab Laboratory Medicine Maria Del Rosario Gomez AP RN, C.N.P., M.S. [address] [place] [phone] (Mj godoy) 06/29/2022 Infusion Oncology Maria Del Rosario Gomez APRN C.N .P., M.S. [address] [place] [phone] (Mj godoy) documented as of this encounter Procedures Procedure Name Priority Date/Time Associated Comments Diagnosis LDA ANE ENDOTRACHEAL Routine 11/27/2020 8:17 AM R esults for this AIRWAY CDT procedure are i n the results section. documented in this encounter Results LDA ANE ENDOTRACHEAL AIRWAY (11/27/2020 8:17 AM CDT) Narrative Anupam Uribe APRN, CRNA - 021 8:17 AM CDT Anupam Uribe APRN, CRNA ? 11/27/2020 ??8:18 AM Airway Date/Time: 11/27/2020 8:05 AM Performed by: Anupam Uribe APRN, CRNA Authorized by: Anupam Uribe APRN, CRNA Patient location during procedure: OR / Procedure Area PROCEDURE DETAILS: Mask difficulty assessment: easy mask Final airway type: direct laryngoscopy, intubation Laryngeal Manipulation: no ?? Final airway difficulty of direct laryng oscopy (DL): 0-easy Final best view of glottic structures - Cormack/Lehane Score: grade 2A ETT location: oral Adult blade type: Luz 2 Adult tube size: 7 Adult ETT distance at teeth/gum: 23 Oral [...] outcome: successful ?? Airway event: no complications Anupam Uribe APRN, CRNA ANESTHESIA ORDERABLES documented in this encounter Visit Diagnoses Not on filedocumented in this encounter Administered Medications Inactive Administered Medications - up to 3 most recent administrations Medication Order MAR Action Action Date Dose Rate Site fentaNYL injection (SUBLIMAZE) Given 11/27/2020 8:03 AM CDT 100 mcg intravenous, As needed, Starting on Mon11/27/20 at 0803, Anesthesia Intra-op lactated ringers Continued from OR 11/27/2020 9:31 AM CDT intravenous, Continuous Infusion: Per Instructions PRN, Starting on Mon11/27/20 at 0803, Anesthesia Intra-op New Bag 11/27/2020 8:03 AM CDT ondansetron (PF) injection (ZOFRAN) Given 11/27/2020 8:12 AM CDT 4 mg intravenous, As needed, Starting on Mon11/27/20 at 0812, Anesthesia Intra-op phenylephrine injection Given 11/27/2020 9:04 AM CDT 100 mcg As needed, Starting on Mon11/27/20 at 0814, Anesthesia Intra-op Given 11/27/2020 8:51 AM CDT 100 mcg Given 11/27/2020 8:45 AM CDT 100 mcg piperacillin-tazobactam in dextrose Given 11/27/2020 8:10 AM CDT 3.375 g (iso-osm) IVPB (ZOSYN) Administer over 0.5 Hours, As needed, Starting on Mon11/27/20 at 0810, Anesthesia Intra-op propofol 10 mg/mL infusion New Bag 11/27/2020 8:03 100 mcg/kg/min 41.1 mL/hr (DIPRIVAN) AM CDT intravenous, Continuous Infusion: Per Instructions PRN, Starting on Mon11/27/20 at 0803, Anesthesia Intra-op propofoL injection (DIPRIVAN) Given 11/27/2020 8:03 AM CDT 150 mg intravenous, As needed, Starting on Mon11/27/20 at 0803, Anesthesia Intra-op succinylcholine (PF) injection (ANECTINE ) Given 11/27/2020 8:03 AM CDT 120 mg intravenous, As needed, Starting on Mon11/27/20 at 0803, Anesthesia Intra-op documented in this encounter Care Teams Billposter Relationship Specialty Start Date End Date Elsewhere, Pcp PCP - General Family Medicine 08/12/20 documented as of this encounter
--- OUTSIDE RECORDS SUMMARY | 2022-06-18 16:18 | XMS_ITS | Encounter Summary ---
:1965 Author Organization [facility] Address [address] [place] [address] Care Team Providers Name Role Phone Elsewhere, Pcp Primary Care Provider Unavailable Reason for Referral Outpatient (Routine) - Closed Specialty Diagnoses / Procedures Referred By Contact Refer red To Contact Infectious Diseases [facility] [address] [place] [address] Referral ID Status Reason Start Date Expiration Date Visits Requ ested Visits Authorized [id number] Closed 11/11/2020 11/11/2021 1 1 Scheduling Instructions Coordinate with GI follow up around this time if possible. ING PROGRAM MANAGER MRI/CAT/PET Scan (Routine) - Closed Specialty Diagnoses / Procedures Referred By Contact Refer red To Contact Radiology Diagnoses Acute Pancreatitis With Infected Necrosis Unspecified (HCC) Gina Aranda [facility] Procedures CT Abdomen Pelvis with IV Contrast P.A.-C. [address] [place], [place] [phone] Referral ID Status Reason Start Date Expiration Date Visits Requ ested Visits Authorized [id number] Closed 11/11/2020 11/11/2021 1 1 ING PROGRAM MANAGER Reason for Visit Outpatient (Routine) - Closed Specialty Diagnoses / Procedures Referred By Contact Refer red To Contact Infectious Diseases Diagnoses [facility] Renetta Love M.D[facility] [address] [place] [address] Referral ID Status Reason Start Date Expiration Date Visits Requ ested Visits Authorized [id number] Closed 10/30/2020 10/30/2021 1 1 Encounter Details Date Type Department Care Team Description 11/11/2020 Office Visit Section of Renetta Tenorio M.D. [address] [place] [address] Acute Pancreatitis With Infected Necrosi s Unspecified (HCC) (Primary Dx); Infectious Diseases Gina Aranda P.A.-C. [address] [place] [phone] Camper Assembler Antibiotic Treatment; in [place], Malignant Neop lasm Of Pancreas (HCC); [place] Hypotension [address] [place] [phone] Social History Tobacco Use Types Packs/Day Years [...] How often do you attend shinto or tenriism services? Never 01/15/2021 Do you [...] at Date Recorded Male 08/18/2021 2:55 PM NURSING PROGRAM MANAGER documented as of this encounter Last Filed Vital Signs Vital Sign Reading Time Taken Comments Blood Pressure - - Pulse - - Temperature 36.7 ??C (98.1 ??F) 11/11/2020 9:52 AM NURSING PROGRAM MANAGER Respiratory Rate - - Oxygen Saturation - - Inhaled Oxygen Concentration - - Weight 66.4 kg (146 lb 6.2 oz) 11/11/2020 9:52 AM NURSING PROGRAM MANAGER Height - - Body Mass Index 20.56 10/29/2020 12:51 PM NURSING PROGRAM MANAGER documented in this encounter Progress Notes Gina Aranda P.A.-C. - 11/11/2020 10:15 AM CST Infectious Diseases-Subsequent Visit Note SUBJECTIVE Referring Provider: Renetta Urban M.D. REASON FOR CONSULT Follow-up, necrotizing pancreatitis HISTORY OF PRESENT ILLNESS Mr. Campbell is a 55 y.o. male who was diagnosed with pancreatic adenocarcinoma in 07/2020. He underwent ERCP with stent placement due to malignant obstruction on 07/29 and 08/04/20. He initiated chemotherapy with gemcitabine and paclitaxel on 10/16/2020 (currently on hold). 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 Mr. Campbell developed necrotizing pancreatitis with pseudocyst formation in 07/2020. He had an associated strep anginosus bloodstream infection and received 6 weeks of antibiotics. He was initially on ceftriaxone, however developed increasing liver enzymes and was transitioned to ertapenem. He continued ertapenem until 09/23. Mr. Campbell was admitted 10/01-10/02 with abdominal pain and fever. 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 Mr. Campbell was readmitted 10/18-10/22 after developing fever. He received Zosyn (10/18-10/19). A CT (10/17) showed extensive residual multiloculated fluid in the pancreatic bed that was slightly decreased in size. This was not felt to be mature enough for drainage. He was dismissed without antibiotics. Mr. Campbell was readmitted 10/23-10/30 after developing heart palpitations. A CT abdomen/pelvis (10/23) showed increasing multiloculated fluid collections with new gas formation concerning for infection. 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 Two double pigtailstents were placed across the fistula due to a large volume of draining pus. He then underwent necrosectomy (10/29) with placement of an Axios stent next to the 2 plastic stents. No cultures were obtained due to the gastric fistula. They are presumed to be polymicrobial with GI organisms. He received Zosyn inpatient and was transitioned to ertapenem 10/30 with plans to continue until source control (atleast 2 weeks). Mr. Campbell underwent CT abdomen/pelvis (11/05) which showed the Axios stent had fallen out, leaving 3 pigtail stents providing transgastric drainage of the walled-off necrosis in the left abdomen. There is no significant change in size of the necrotic material. On 11/10 he underwent EUS with repeat necrosectomy, removal of 1 pigtail stent, and placement of 3 additional pigtail stents. Further pus was noted from the cyst gastrostomy tract. Mr. Campbell returns today in follow-up. He states he has been having less gas since his procedure yesterday. His abdomen is sore, particularly his left flank. No fevers. He is tolerating ertapenem well. He does state that his home care company did not have proper orders for his PICC site care. His PICC site was last cleaned on 11/05 when he had an IVAD placed. REVIEW OF SYSTEMS I have reviewed the encounter review of systems and pertinent responses are noted in the history. The following portions of the patient's history were reviewed and updated as appropriate: allergies,current medications, problem list, social history, medical history and surgical history. OBJECTIVE Vitals: 11/11/20 0952 Temp: 36.7 ??C Weight: 66.4 kg TempSrc: Tympanic PHYSICAL EXAM Vitals signs reviewed. Constitutional Appearance: Normal appearance. Pulmonary Effort: Pulmonary effort is normal. Abdominal General: There is no distension. Skin Comments: PICC in left upper extremity appears healthy. IVAD in right upper chest appears healthy. Incisions are closed and without drainage or erythema. Neurological General: No focal deficit present. Mental Status: He is alert. Psychiatric Mood and Affect: Mood normal. Behavior: Behavior normal. LABS Results from last 7 days Lab Units 11/11/20 0753 HEMOGLOBIN g/dL 8.8* HEMATOCRIT % 29.0* RBC AUTO x10(12)/L 3.65* MCV fL 79.5 RBC DISTRIBUTION WIDTH AUTO % 17.8* WBC x10(9)/L 9.2 NEUTROPHILS AUTO x10(9)/L 7.13* LYMPHS ABSOLUTE x10(9)/L 0.85* MONOS ABS AUTO x10(9)/L 1.06* EOS ABS AUTO x10(9)/L 0.06 BASOS ABS AUTO x10(9)/L 0.05 PLATELETS AUTO x10(9)/L 379* Results from last 7 days Lab Units 11/11/20 0753 ALT U/L 29 Results from last 7 days Lab Units 11/11/20 0753 CREATININE mg/dL 0.89 RENAL FUNCTION Estimated Creatinine Clearance: 87.3 mL/min (by C-G formula based on SCr of 0.89 mg/dL). MICROBIOLOGY 11/05 SARS-CoV-2 PCR undetected. 10/26 VRE PCR negative. 10/23 Blood: No growth. 10/21 Blood: No growth. 10/18 Blood: No growth. IMAGING REVIEWED 11/05 CT abdomen/pelvis: Loose Axios stent in the colon. Remainder not significantly changed. See findings for details. ANTIMICROBIALS Ertapenem 1 g IV every 24 hours (10/30-) Previously: Zosyn 10/23-10/30 ASSESSMENT / PLAN 1. Pancreatic adenocarcinoma, s/p stent placement for malignant obstruction, chemotherapy currently on hold 2. 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 Long-term antibiotic use toxicity monitoring 4. History of elevated liver enzymes with ceftriaxone DISCUSSION Mr. Campbell is a 55 y.o. 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 He underwent transgastricpigtail stenting on 10/26 with subsequent necrosectomy on 10/29. Unfortunately the Axios stent becamedislodged and as such his necrotic material did not have a significant change between 10/[address] scan on 11/05. He underwent repeat necrosectomy (11/10) with placement of 3 additional stents (removalof 1). Additional purulence was noted at the time of procedure. Given the ongoing purulence and ongoing leukocytosis, I do not feel comfortable discontinuing antibiotics at this time. I will extend ertapenem for at least another 2 weeks (or until we have confirmed source control). I recommend that he have a repeat CT abdomen/pelvis around this time as well. Ideally he should also have GI follow-up. This was not currently scheduled. Mr. Campbell will need ongoing weekly labs (CBC with differential, creatinine, ALT) and weekly site cares for his PICC line. The patient is homebound and will need site cares and labs drawn via home health. RECOMMENDATIONS 1. Continue ertapenem 1 g IV every 24 hours. Tentative stop date 11/25/2020 2. Continue weekly labs: CBC with differential, creatinine, ALT. 3. Continue weekly site cares for PICC 4. ID follow-up with repeat CT chest in approximately 2 weeks. Treatment plan reviewed with Mr. Campbell and his family. They expressed understanding. All questions answered to their satisfaction. Fior Aranda P.A.-C. ING PROGRAM MANAGER documented in this encounter Plan of Treatment Upcoming Encounters Date Type Specialty Care Team Description 06/22/2022 Lab Laboratory Medicine Maria Del Rosario Gomez AP RN, C.N.P., M.S. [address] [place] [phone] (Mj godoy) 06/22/2022 Infusion Oncology Maria Del Rosario Gomez APRN, C.N .P., M.S. [address] [place] [phone] (Mj godoy) 06/29/2022 Lab Laboratory Medicine Maria Del Rosario Gomez AP RN, C.N.P., M.S. [address] [place] [phone] (Mj godoy) 06/29/2022 Infusion Oncology Maria Del Rosario Gomez APRN, C.N .P., M.S. [address] [place] [phone] (Mj godoy) Scheduled Referrals Name Type Priority Associated Order Schedule Diagnoses Infectious Diseases Outpatient Referral Routine E xpected: office visit 11/25/2020 (clinic) (Approximate), Expires: 11/12/2023 documented as of this encounter Results CT [...] Pancreatitis With Infected Necrosi s Unspecified (HCC) - Primary Camper Assembler Antibiotic Treatment Malignant Neoplasm Of Pancreas (HCC) Hypotension Acute Pancreatitis With Infected Necrosi s Unspecified (HCC) documented in this encounter Care Teams Compensation Advisor Relationship Specialty Start Date End Date Elsewhere, Pcp PCP - General Family Medicine 08/12/20 documented as of this encounter
--- OUTSIDE RECORDS SUMMARY | 2022-06-18 16:18 | XMS_ITS | Encounter Summary ---
:1965 Author Organization [facility] Address [address] [place] [address] Care Team Providers Name Role Phone Elsewhere, Pcp Primary Care Provider Unavailable Encounter Details Date Type Department Care Team Description 11/25/2020 Lab Department of Ernesto Curiel Encounte r For Laboratory Medicine and M.DRiaz Preprocedural Laboratory Pathology, [address] Examination (COVID-19) [facility], in [facility] [address] [place] [address] [place] [address] Social History Tobacco Use Types Packs/Day Years [...] How often do you attend religious or hinduism services? 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 [address] [place] [phone] (Wo rk) 06/22/2022 Infusion Oncology Maria Del Rosario Gomez APRN, C.N .P., M.S. [address] [place] [phone] (Wo rk) 06/29/2022 Lab Laboratory Medicine Maria Del Rosario Gomez AP RN, C.N.P., M.S. [address] [place] [phone] (Wo rk) 06/29/2022 Infusion Oncology Maria Del Rosario Gomez APRN, C.N .P., M.S. [address] [place] [phone] (Wo rk) documented as of this encounter Procedures Procedure Name Priority Date/Time Associated Diagnosis Comme nts SARS COV-2 RNA, Routine 11/25/2020 3:14 PM Encounter For Resul ts for this PCR, VARIES CDT Preprocedural procedure are in Laboratory Examination the r esults (COVID-19) section. documented in this encounter Results SARS CoV-2 RNA, PCR, Varies Asymptomatic (11/25/2020 3:14 PM CDT) [facility] Method Time Signature SARS CoV-2 Swab, 11/26/2020 DTL RNA, PCR, Nasopharynx 6:24 AM CDT Source SARS CoV-2 Undetected Undetected 11/26/2020 DTL RNA, PCR 6:24 AM CDT Comment: SARS-CoV-2 RNA absent. This result does not rule out COVID-19 in the patient, as the sensitivity of the test depends o n the timing of the specimen collection and quality of the specimen. Result should be correlated with patient's history and clinical presentat ion. ----ADDITIONAL INFORMATION---- This test has received Emergency Use Aut horization (EUA) by the U.S. Food and Drug Administration an d is used per crystal inspector's instructions. Performance characteristics were verified by [facility] in a manner consistent with CLIA requirements. Visit the CDC website: https://www.cdc.g ov/coronavirus/ for the most recent guidelines on Coron avirus testing. Fact Sheet for Healthcare Providers: https://www.fda.gov/media/981345/downloa d Fact Sheet for Patients: https://www.fda.gov/media/701377/downloa d Specimen Anatomical Collection Method Collection Time Receive d Time (Source) Location / / Volume Laterality Varies 11/25/2020 3:14 PM 4:10 (Nasopharynx) CDT PM CDT Ernesto Curiel M.D. LAB MICROBIOLOGY - GENERAL O [place] Performing Organization Address City/State/ZIP Code Phon e Number [facility] [address] [place], [place] [address] [facility] [place] [address] [facility] [address] documented in this encounter Visit Diagnoses Diagnosis Encounter For Preprocedural Laboratory E xamination (COVID-19) documented in this encounter Additional Health Concerns Infection Onset Date Last Indicated Resolved Time COVID19 Pending 11/25/2020 11/25/2020 11/26/2020 6:25 AM CDT documented as of this encounter Care Teams Substation Operator Relationship Specialty Start Date End Date Elsewhere, Pcp PCP - General Family Medicine 08/12/20 documented as of this encounter
--- OUTSIDE RECORDS SUMMARY | 2022-06-18 16:18 | XMS_ITS | Encounter Summary ---
:1965 Author Organization [facility] Address [address] [place] [address] Care Team Providers Name Role Phone Elsewhere, Pcp Primary Care Provider Unavailable Reason for Referral Outpatient (Routine) - Closed Specialty Diagnoses / Procedures Referred By Contact Refer red To Contact Diagnoses Pancreatitis Acute (HCC) Ernesto Curiel M.D. [facility] Procedures [place] Fluoro Less Than 1 Hour [address] [place] [phone] Referral ID Status Reason Start Date Expiration Date Visits Requ ested Visits Authorized [id number] Closed 11/10/2020 11/10/2021 1 1 R APPLIANCE ASSEMBLY SUPERVISOR Reason for Visit Outpatient (Routine) - Closed Specialty Diagnoses / Procedures Referred By Contact Refer red To Contact Diagnoses Pancreatitis Acute (HCC) Ernesto Curiel M.D. [facility] Procedures [place] Fluoro Less Than 1 Hour [address] [place] [phone] Referral ID Status Reason Start Date Expiration Date Visits Requ ested Visits Authorized [id number] Closed 11/10/2020 11/10/2021 1 1 Encounter Details Date Type Department Care Team Description 11/10/2020 Hospital Encounter Department of Ernesto Curiel Pancr eatitis Acute Radiology, Hernan Sifuentes M.D. ([facility]) [facility], in [address] [place] [phone] [place] [address] [place], [place] (Work) [phone] Social History Tobacco Use Types Packs/Day Years [...] How often do you attend presybeterian or baptism services? 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 pantoprazole (PROTONIX) Take 1 tablet (40 mg 90 tablet 3 10/02/2021 40 mg EC tablet total) by mouth every morning before breakfast. acetaminophen (TYLENOL) Take 1 tablet (500 mg 0 1 10/16/2019 01/01/2021 500 mg tablet total) by mouth every 6 (six) hours. ertapenem (INVanz) 100 Infuse 10 mL (1 g 110 mL 0 202011/11/2020 mg/mL total) into a venous injectionIndications: catheter daily for 11 Intra-abdominal days Indications: infection, community Intra-abdominal acquired infection, community acquired. nystatin (MYCOSTATIN) 500,000 Units. 0 11/02/2020 12/11/2020 100,000 unit/mL suspension nystatin (MYCOSTATIN) Take 500,000 Units by 0 12/12/2020 100,000 unit/mL mouth 4 (four) times suspension a day as needed. Only uses when on antibiotics ondansetron (ZOFRAN) 8 Take 1 tablet (8 mg 20 tablet 0 /01/202102/24/2021 mg tablet total) by mouth every 8 [...] with PICC documented as of this encounter Plan of Treatment Upcoming Encounters Date Type Specialty Care Team Description 06/22/2022 Lab Laboratory Medicine Maria Del Rosario Gomez AP RN, C.N.P., M.S. [address] [place] [phone] (Mj godoy) 06/22/2022 Infusion Oncology Maria Del Rosario Gomez APRN, C.N .P., M.S. [address] [place] [phone] (Mj godoy) 06/29/2022 Lab Laboratory Medicine Maria Del Rosario Gomez AP RN, C.N.P., M.S. [address] [place] [phone] (Mj godoy) 06/29/2022 Infusion Oncology Maria Del Rosario Gomez APRN, C.N .P., M.S. [address] [place], [place] [phone] (Wo rk) documented as of this encounter Procedures Procedure Name Priority Date/Time Associated Diagnosis Comme nts FL FLUORO LESS THAN Routine 11/10/2020 10:02 Pancreatitis Acut e Results for this 1 HOUR AM MAJOR APPLIANCE ASSEMBLY SUPERVISOR (HCC) procedure are i n the results section. documented in this encounter Results [place] Fluoro Less Than 1 Hour (11/10/2020 10:02 AM MAJOR APPLIANCE ASSEMBLY SUPERVISOR) Specimen (Source) Anatomical Location Collection Method / Collectio n Time Received Time / Laterality Volume Narrative ERCP LOS RST - 11/10/2020 10:06 AM CS T This exam does not require a radiologist review or interpretation. Please refer to the patient's medical record on this date for clinical details. Ernesto WONG FLUOROSCOPY PROCEDURES Performing Organization Address City/State/ZIP Code Phon e Number ERCP LOS RST documented in this encounter Visit Diagnoses Diagnosis Pancreatitis Acute (HCC) documented in this encounter Care Teams Fraud Examiner Relationship Specialty Start Date End Date Elsewhere, Pcp PCP - General Family Medicine 08/12/20 documented as of this encounter
--- OUTSIDE RECORDS SUMMARY | 2022-06-18 16:18 | XMS_ITS | Encounter Summary ---
:1965 Author Organization [facility] Address [address] [place] [address] Care Team Providers Name Role Phone Elsewhere, Pcp Primary Care Provider Unavailable Encounter Details Date Type Department Care Team Description 11/11/2020 Clinical Communication Division of Ernesto Curiel Gastroenterology ej Sifuentes M.D. 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 - 11/11/2020 3:43 PM CST ----- Message from Gina Aranda P.A.-C. sent at 11/11/2020 10:24 AM OIL REFINERY OPERATOR ----- Regarding: Follow up Good morning Dr. Curiel, I saw Mr. Capmbell in ID clinic this morning. Given the purulence seen yesterday during his necrosectomy and his ongoing leukocytosis, I have opted to continue his ertapenem for an additional 2 weeks. Hopefully by then we will have reliable source control. I have ordered a repeat CT and ID follow-up for around 11/25, but that date is flexible. Ideally we could see him on the same day as GI or like we didthis time with ID seeing after the necrosectomy to see if additional antibiotics will be needed. Let me know when you will be seeing him back and I'll coordinate my appointments with yours. Thanks, Fior Aranda P.A.-C. Infectious Diseases REFINERY OPERATOR documented in this encounter Plan of Treatment Upcoming Encounters Date Type Specialty Care Team Description 06/22/2022 Lab Laboratory Medicine Maria Del Rosario Gomez AP RN, C.N.P., M.S. [address] [place] [phone] (Mj godoy) 06/22/2022 Infusion Oncology Maria Del Rosario Gomez APRN, C.N .P., M.S. [address] [place] [phone] (Mj godoy) 06/29/2022 Lab Laboratory Medicine Maria Del Rosario Gomez AP RN, C.N.P., M.S. [address] [place] [phone] (Mj godoy) 06/29/2022 Infusion Oncology Maria Del Rosario Gomez APRN, CRiazN .P., M.S. [address] [place], [place] [phone] (Wo rk) documented as of this encounter Visit Diagnoses Not on filedocumented in this encounter Care Teams Supervisor [employer]oultry [employer] Relationship Specialty Start Date End Date Elsewhere, Pcp PCP - General Family Medicine 08/12/20 documented as of this encounter
--- OUTSIDE RECORDS SUMMARY | 2022-06-18 16:18 | XMS_ITS | Encounter Summary ---
:1965 Author Organization [facility] Address [address] [place] [address] Care Team Providers Name Role Phone Elsewhere, Pcp Primary Care Provider Unavailable Reason for Referral Outpatient (Routine) - Closed Specialty Diagnoses / Procedures Referred By Contact Refer red To Contact Diagnoses Teacher Of The Handicapped Antibiotic Treatment Roxie Adorno P.A.-C. [address] [place] [phone] Referral ID Status Reason Start Date Expiration Date Visits Requ ested Visits Authorized [id number] Closed 11/11/2020 11/11/2021 1 1 PER ON Reason for Visit Reason Comments OPAT Normal Labs OPAT Care Coordination Encounter Details Date Type Department Care Team Description 11/11/2020 Clinical Section of Gina Aranda (Joyce martinez Communication Infectious D, P.A.-C. Labs); OPAT ([facility] in [address] [place] [address] Coordination) [facility] [phone] [place] [address] [place], [place] (Work) [phone] Social History Tobacco Use Types Packs/Day [...] How often do you attend cheondoism or mu-ism services? Never 01/15/2021 Do you [...] at Date Recorded Male 08/18/2021 2:55 PM SNAPPER ON documented as of this encounter Miscellaneous Notes Telephone Encounter - Lola Luz R.N. - 11/12/2020 11:53 AM SNAPPER ON [facility] nurse, Kaylyn, called to notify us that they will admit patient and do labs and site care on 11/19/20. PER ON Telephone Encounter - Lola Luz R.N. - 11/11/2020 10:46 AM SNAPPER ON OPAT NOTE Infusion Provider: [facility], phone: [phone], fax: [phone] Antimicrobial(s) currently prescribed: See Med List Hyperlink in note Tentative stop date: 11/25/20; final stop date to be determined at follow up visit. Date of ID follow up appt: expected 11/25/20, not yet scheduled. Lab results from 11/11/20 are viewable in the MCR record. Interpretation and action: Today's labs were reviewed by Gina Aranda P.A.-C, at patient's follow up visit. Per Pratik Aranda, we are extending ertapenem to 11/25/20. 1) I spoke with [facility] pharmacist, Karen, to let her know of the medication extension and I faxed the prescription to [facility]. 2) Labs and site care will need to continue as well. I spoke with nurse, Kaylyn, at [facility] (phone [phone], fax [phone]), who states patient was never actually admitted to them because labs and site care were scheduled at [facility] [place]. I informed Karen at [facility] that [facility] will need a new home care referral. Weekly lab order, site care order, PICC information, and Pratik Aranda's visit note from today (including homebound attestation) were faxed to [facility]. PER ON Telephone Encounter - Gina Aranda P.A.-C. - 11/11/2020 10:14 AM SNAPPER ON I am recommending extension of Mr. Campbell's ertapenem for at least 2 weeks (tentative stop date 11/25/2020). He will need weekly monitoring labs (CBC with differential, creatinine, ALT). He will also need weekly site cares. He has only one dose for today left. He will need more doses for tomorrow's dose. PER ON documented in this encounter Plan of Treatment Upcoming Encounters Date Type Specialty Care Team Description 06/22/2022 Lab Laboratory Medicine [place] AP RN, C.N.P., M.S. 200 [place], [place] [phone] (Mj godoy) 06/22/2022 Infusion Oncology Maria Del Rosario Gomez APRN, C.N .P., M.S. [address] [place] [phone] (Mj godoy) 06/29/2022 Lab Laboratory Medicine Maria Del Rosario Gomez AP RN, C.N.P., M.S. [address] [place] [phone] (Mj godoy) 06/29/2022 Infusion Oncology Maria Del Rosario Gomez, GUERO, C.N .P., M.S. [address] [place], [place] [phone] (Wo rk) documented as of this encounter Visit Diagnoses Diagnosis Teacher Of The Handicapped Antibiotic Treatment - Primary documented in this encounter Care Teams Map And Chart Mounter Relationship Specialty Start Date End Date Elsewhere, Pcp PCP - General Family Medicine 08/12/20 documented as of this encounter
--- OUTSIDE RECORDS SUMMARY | 2022-06-18 16:18 | XMS_ITS | Encounter Summary ---
:1965 Author Organization [facility] Address [address] [place] [address] Care Team Providers Name Role Phone Elsewhere, Pcp Primary Care Provider Unavailable Encounter Details Date Type Department Care Team Description 11/11/2020 Lab Department of Infusion Gina Aranda Fdc Antibiotic Treatment (Primary Dx); Therapy in [facility].-. Bacteremia [place] [address] [facility] [address] [place] [phone] Social History Tobacco Use Types Packs/Day Years [...] How often do you attend denominational or jew services? 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 [address] [place] [phone] (Wo rk) 06/22/2022 Infusion Oncology Maria Del Rosario Gomez APRN, C.N .P., M.S. [address] [place] [phone] (Wo rk) 06/29/2022 Lab Laboratory Medicine Maria Del Rosario Gomez AP RN, C.N.P., M.S. [address] [place] [phone] (Wo rk) 06/29/2022 Infusion Oncology Maria Del Rosario Gomez APRN, C.N .P., M.S. [address] [place] [phone] (Wo rk) documented as of this encounter Procedures Procedure Name Priority Date/Time Associated Comments Diagnosis CBC WITH DIFFERENTIAL, B Routine 11/11/2020 7:53 Filter Operator Results for this AM UNCLAIMED PROPERTY OFFICER Antibiotic procedure are i n Treatment the results section. ALANINE AMINOTRANSFERASE Routine 11/11/2020 7:53 Filter Operator Results for this (ALT), S/P AM UNCLAIMED PROPERTY OFFICER Antibiotic procedure are i n Treatment the results section. CREATININE WITH EGFR, Routine 11/11/2020 7:53 Filter Operator Res ults for this S/P AM UNCLAIMED PROPERTY OFFICER Antibiotic procedure are i n Treatment the results section. documented in this encounter Results Creatinine with Estimated GFR (11/11/2020 7:53 AM UNCLAIMED PROPERTY OFFICER) P athologist Signature Creatinine 0.89 0.74 - 11/11/2020 DTL 1.35 mg/dL 8:38 AM UNCLAIMED PROPERTY OFFICER eGFR-Non >90 >=60 11/11/2020 DTL Black/ mL/min/BSA 8:38 AM UNCLAIMED PROPERTY OFFICER [place] Comment: ----ADDITIONAL INFORMATION---- Estimated GFR calculated using the 2009 CKD_EPI creatinine equation. eGFR-Black/ >90 >=60 mL/min/BSA 2020 8:38 AM UNCLAIMED PROPERTY OFFICER DTL Comment: ----ADDITIONAL INFORMATION---- Estimated GFR calculated using the 2009 CKD_EPI creatinine equation. Specimen Anatomical Collection Method Collection Time Receive d Time (Source) Location / / Volume Laterality Blood (Blood, 11/11/2020 7:53 AM 11/12/19 8:02 Venous) UNCLAIMED PROPERTY OFFICER AM UNCLAIMED PROPERTY OFFICER Gina Aranda P.A.-C. LAB BLOOD ADD-ON Performing Organization Address City/State/ZIP Code Phon e Number [facility] [address] [place], [place] [address] [facility] [place] [address] Laboratories-[facility] 200 [address] [facility] (ABNORMAL) CBC with Differential, Blood (11/11/2020 7:53 AM UNCLAIMED PROPERTY OFFICER) [facility] gist Method Time Signature Hemoglobin 8.8 (L) 13.2 - 11/11/2020 DTL 16.6 g/dL 8:19 AM UNCLAIMED PROPERTY OFFICER Hematocrit 29.0 (L) 38.3 - 11/11/2020 DTL 48.6 % 8:19 AM UNCLAIMED PROPERTY OFFICER Erythrocytes 3.65 (L) 4.35 - 11/11/2020 DTL 5.65 8:19 AM UNCLAIMED PROPERTY OFFICER x10(12)/L MCV 79.5 78.2 - 11/11/2020 DTL 97.9 fL 8:19 AM UNCLAIMED PROPERTY OFFICER RBC Distrib Width 17.8 (H) 11.8 - 11/11/2020 DTL 14.5 % 8:19 AM UNCLAIMED PROPERTY OFFICER Platelet Count 379 (H) 135 - 317 11/11/2020 DTL x10(9)/L 8:19 AM UNCLAIMED PROPERTY OFFICER Leukocytes 9.2 3.4 - 9.6 11/11/2020 DTL x10(9)/L 8:19 AM UNCLAIMED PROPERTY OFFICER Neutrophils 7.13 (H) 1.56 - 11/11/2020 DTL 6.45 8:19 AM UNCLAIMED PROPERTY OFFICER x10(9)/L Lymphocytes 0.85 (L) 0.95 - 11/11/2020 DTL 3.07 8:19 AM UNCLAIMED PROPERTY OFFICER x10(9)/L Monocytes 1.06 (H) 0.26 - 11/11/2020 DTL 0.81 8:19 AM UNCLAIMED PROPERTY OFFICER x10(9)/L Eosinophils 0.06 0.03 - 11/11/2020 DTL 0.48 8:19 AM UNCLAIMED PROPERTY OFFICER x10(9)/L Basophils 0.05 0.01 - 11/11/2020 DTL 0.08 8:19 AM UNCLAIMED PROPERTY OFFICER x10(9)/L Specimen Anatomical Collection Method Collection Time Receive d Time (Source) Location / / Volume Laterality Blood (Blood, 11/11/2020 7:53 AM 11/12/19 21 8:03 Venous) UNCLAIMED PROPERTY OFFICER AM UNCLAIMED PROPERTY OFFICER Gina Aranda P.A.-C. LAB BLOOD ADD-ON Performing Organization Address City/[facility] Phon e Number [facility] [address] ALT (Alanine Aminotransferase) (11/11/2020 7:53 AM UNCLAIMED PROPERTY OFFICER) [facility] gist Method Time Signature Alanine 29 7 - 55 11/11/2020 DTL Aminotransferase U/L 8:38 AM UNCLAIMED PROPERTY OFFICER (ALT), S Specimen Anatomical Collection Method Collection Time Receive d Time (Source) Location / / Volume Laterality Blood (Blood, 11/11/2020 7:53 AM 11/12/19 21 8:02 Venous) UNCLAIMED PROPERTY OFFICER AM UNCLAIMED PROPERTY OFFICER Gina Aranda P.A.-C. LAB BLOOD ADD-ON Performing Organization Address City/[facility] Phon e Number [address] documented in this encounter Visit Diagnoses Diagnosis Filter Operator Antibiotic Treatment - Primary Bacteremia documented in this encounter Administered Medications Inactive Administered Medications - up to 3 most recent administrations Medication Order MAR Action Action Date Dose Rate Site sodium chloride 0.9 % injection Given 11/11/2020 7:55 AM UNCLAIMED PROPERTY OFFICER 30 mL 10-30 mL 10-30 mL, intra-catheter, As needed, line care, Starting on Mon11/11/20 at 0742, When no infusion to maintain patency. Flush every 7 days to each lumen. documented in this encounter Care Teams Home Health Care Provider Relationship Specialty Start Date End Date Elsewhere, Pcp PCP - General Family Medicine 08/12/20 documented as of this encounter
--- OUTSIDE RECORDS SUMMARY | 2022-06-18 16:18 | XMS_ITS | Encounter Summary ---
:1965 Author Organization [facility] Address [address] [place] [address] Care Team Providers Name Role Phone Elsewhere, Pcp Primary Care Provider Unavailable Reason for Referral Outpatient (Routine) - Closed Specialty Diagnoses / Procedures Referred By Contact Refer red To Contact Diagnoses Pancreatitis Acute (HCC) rEnesto Curiel M.D. [facility] Procedures ERCP [address] [place] [phone] Referral ID Status Reason Start Date Expiration Date Visits Requ ested Visits Authorized [id number] Closed 11/11/2020 11/11/2021 1 1 ING FOREMAN Encounter Details Date Type Department Care Team Description 11/11/2020 Documentation Division of Gastroenterology Iva Curiel in [facility] elke Roca [address] [facility] [address] [place] [address] [place], [place] [phone] (Wo rk) Social History Tobacco Use Types [...] How often do you attend jain or jain services? 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 - 11/11/2020 3:43 PM CST Telephone Note I spoke with Mr Campbell to follow up after her recent necrosectomy. Patient underwent repeat necrosectomy. He did not have another axial stent placed given concern that it may migrate again. Instead he had continued necrosectomy and replacement of 1 plastic double-pigtail stent with 7Fr plastic double-pigtail stents to help this drainage. We will order for repeat CT scan in 2 weeks and plan for a repeat a necrosectomy procedure after that. I have ordered for it to be in any ERCP slot and explained to the patient that he will have a repeat procedure in imaging. He is in agreement with plan. Impression Post-op Diagnoses: ? - Normal esophagus. ? - Normal examined duodenum. ? - Necrosectomy was performed as above. ? - The previously placed lumen opposing metal stent had spontaneously ? migrated out of the tract. ? - Removal of one 7 Fr plastic double-pigtail stent and replacement with ? three 7Fr plastic double-pigtail stents as above (10 cm, 12 cm, and 20 ? cm in length) Ernesto Curiel MD [facility] ING FOREMAN documented in this encounter Plan of Treatment Upcoming Encounters Date Type Specialty Care Team Description 06/22/2022 Lab Laboratory Medicine Maria Del Rosario Gomez, AP RN, C.N.P., M.S. [address] [place] [phone] (Mj rk) 06/22/2022 [facility] M[facility] [address] [place] [phone] (Mj godoy) 06/29/2022 [facility], C.N.P., M.S. [address] [place] [phone] (Mj godoy) 06/29/2022 [facility], C.N .P., M.S. [address] [place] [phone] (Mj godoy) documented as of this encounter Visit Diagnoses Diagnosis Pancreatitis Acute (HCC) - Primary documented in this encounter Care Teams Green Building Materials Distributor Relationship Specialty Start Date End Date Elsewhere, Pcp PCP - General Family Medicine 08/12/20 documented as of this encounter
--- OUTSIDE RECORDS SUMMARY | 2022-06-18 16:18 | XMS_ITS | Encounter Summary ---
:1965 Author Organization [facility] Address [address] [place] [address] Care Team Providers Name Role Phone Elsewhere, Pcp Primary Care Provider Unavailable Reason for Referral Outpatient (Routine) - Closed Specialty Diagnoses / Procedures Referred By Contact Refer red To Contact Diagnoses Pancreatitis Acute (HCC) Ernesto Curiel M.D. [facility] Procedures EUS [address] [place] [address] Referral ID Status Reason Start Date Expiration Date Visits Requ ested Visits Authorized [id number] Closed 11/13/2020 11/13/2021 1 1 Outpatient (Routine) - Closed Specialty Diagnoses / Procedures Referred By Contact Refer red To Contact Diagnoses Pancreatitis Acute (HCC) Ernesto Curiel M.D. [facility] Procedures ERCP [address] [place] [address] Referral ID Status Reason Start Date Expiration Date Visits Requ ested Visits Authorized [id number] Closed 11/11/2020 11/11/2021 1 1 Reason for Visit Outpatient (Routine) - Closed Specialty Diagnoses / Procedures Referred By Contact Refer red To Contact Diagnoses Pancreatitis Acute (HCC) Ernesto Curiel M.D. [facility] Procedures ERCP [address] [place] [address] Referral ID Status Reason Start Date Expiration Date Visits Requ ested Visits Authorized [id number] Closed 11/11/2020 11/11/2021 1 1 Encounter Details Date Type Department Care Team Description 11/27/2020 Hospital Division of Ernesto Curiel M.D. [address] [place] [phone] Pancreatitis Acute Encounter Gastroenterology in [place] Efe, COURT RECORDING MONITOR, WELL SERVICES OPERATOR [address] [place] [phone] (FORMERLY [facility]) [place], [place] [address] [place], [place] [phone] Social History Tobacco Use Types Packs/Day [...] How often do you attend yazidi or rastafarian services? 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 About Your ERCP, (Endoscopic Retrograde Cholangiopancreatography) (Angolan) documented in this encounter Medications at Time [...] Gomez AP RN, C.N.P., M.S. [address] [place] [phone] (Mj godoy) 06/22/2022 Infusion Oncology RidgeMaria Del Rosario pierre APRN, C.N .P., M.S. [address] [place] [phone] (Mj godoy) 06/29/2022 Lab Laboratory Medicine Maria Del Rosario Gomez AP RN, C.N.P., M.S. [address] [place] [phone] (Mj godoy) 06/29/2022 Infusion Oncology Maria Del Rosario Gomez APRN, C.N .P., M.S. [address] [place] [phone] (Mj godoy) Scheduled Orders Name Type Priority Associated Diagnoses Order S chedule EUS GI Routine Pancreatitis Acute (HCC) Onc e for 1 Occurrences starting 11/27/2020 unti l 11/27/2020 documented as of this encounter Procedures Procedure Name Priority Date/Time Associated Diagnosis Comme nts ERCP Routine 11/27/2020 7:28 AM Pancreatitis Acute Res ults for this CDT (HCC) procedure are i n the results section. ERCP Routine 11/27/2020 7:28 AM Pancreatitis Acute CDT (HCC) documented in this encounter Results ERCP (11/27/2020 7:28 AM CDT) Specimen (Source) Anatomical Collection Method Collection Time Re ceived Time Location / / Volume Laterality 11/27/2020 7:28 AM CDT Impressions TINNIE PROVATION - 11/27/2020 3:06 PM CDT Post-op Diagnoses: ? - Minimal pus and necrosis seen. ? - After removal of a partially mi grated stent and tract dilation, three ? uretheral stents were placed into the pseudocyst. Narrative TINNIE PROVATION - 11/27/2020 3:06 PM CDT Gonda 2 GI Patient Name: Adam Campbell Date of : 1965 Age: 55 Gender: Male Procedure Date: 11/27/2020 Procedure: ? ERCP Providers: ? Adam Simpson MD Referring Provider: ?Ernesto link MD Pre-op Diagnoses: ?Pancreatic necrosis, Necrosectomy Recommendation: ? - Consider repeat cross sectional imaging in about 2-3 weeks followed by ? next day intervention as required . Findings: ? Mutliple stents were again seen i n various aspectes of the fluid ? collection. One indwelling stent that had partially migrated was ? removed. The tract was dilated wi th a 15mm balloon. The cavity contained ? some pus and less necrosis. After removal and cleaning, three 7 Fr by ? 20cm cm uretheral stents with a f ull external pigtail and a full ? internal pigtail were placed into the necrotic cavity through the ? cystotomy. Some residual pus flow ed betwen the stents. The stents were ? in good position. Procedural Details: ? The patient was seen, [...] oxygen saturations ? were monitored continuously. The therapeutic upper endoscope was ? introduced through the mouth, and advanced to the duodenum and used to ? inject contrast into the . The pr ocedure was determined to be ASGE ? Complexity Level 4. Complications: ? No immedia te complications. Estimated Blood Loss: ?Estimated blo od loss: none. Attending Participation: I personally pe rformed the entire procedure. Adam Simpson MD 11/27/2020 3:06:27 PM This report has been signed electronical ly. Number of Addenda: 0 Note Initiated On: 11/27/2020 7:28 AM Ernesto Curiel M.D. GI PROCEDURE ORDERABLES Performing Organization Address City/State/ZIP Code Phon e Number TINNIE PROVATION NA documented in this encounter Visit Diagnoses Diagnosis Pancreatitis Acute (HCC) documented in this encounter Administered Medications Inactive Administered Medications - up to 3 most recent administrations Medication Order MAR Action Action Date Dose Rate Site lactated ringers Continued from OR 11/27/2020 9:31 AM CDT intravenous, Continuous Infusion: Per Instructions PRN, Starting on Mon11/27/20 at 0803, Anesthesia Intra-op New Bag 11/27/2020 8:03 AM CDT documented in this encounter Care Teams Adz 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
--- OUTSIDE RECORDS SUMMARY | 2022-06-18 16:18 | XMS_ITS | Encounter Summary ---
:1965 Author Organization [facility] Address [address] [place] [address] Care Team Providers Name Role Phone Elsewhere, Pcp Primary Care Provider Unavailable Reason for Visit Reason Comments OPAT Intervention Encounter Details Date Type Department Care Team Description 11/26/2020 Clinical Communication Section of Sandy Kinney (Intervention) Infectious Diseases M, R.N. in [facility] [phone] [place] (Work) [address] [place] [phone] Social History Tobacco Use Types Packs/Day Years [...] How often do you attend orthodox or hindu services? 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 - 11/26/2020 1:44 PM CDT Per Fior Aranda PA-C, the patient will continue his ertapenem through November 29 and can then have his PICC removed on Monday November 30, 2020. His antimicrobial therapy will be complete at that time and he will no longer require any OPAT monitoring. I contacted [facility] and spoke with Conor. I advised of the stop date of 11/29 and the request to remove thePICC on 11/30. He verbalized his understanding and asked that the rx be sent to [address] [place] [address]. This has been done. He stated that the patient is getting home healthcare through [facility] and he will communicate with the nurse so the PICC is removed on Monday, 11/30. documented in this encounter Plan of Treatment Upcoming Encounters Date Type Specialty Care Team Description 06/22/2022 Lab Laboratory Medicine Maria Del Rosario Gomez AP RN, C.N.P., M.S. [address] [place] [phone] (Mj godoy) 06/22/2022 Infusion Oncology Maria Del Rosario Gomez APRN, C.N .P., M.S. [address] [place] [phone] (Mj godoy) 06/29/2022 Lab Laboratory Medicine Maria Del Rosario Gomez AP RN, C.N.P., M.S. [address] [place] [phone] (Mj godoy) 06/29/2022 Infusion Oncology Maria Del Rosario Gomez APRN, C.N .P., M.S. [address] [place] [phone] (Mj godoy) documented as of this encounter Visit Diagnoses Not on filedocumented in this encounter Additional Health Concerns Infection Onset Date Last Indicated Resolved Time COVID19 Pending 11/25/2020 11/25/2020 11/26/2020 6:25 AM CDT documented as of this encounter Care Teams Count Room Clerk Relationship Specialty Start Date End Date Elsewhere, Pcp PCP - General Family Medicine 08/12/20 documented as of this encounter
--- OUTSIDE RECORDS SUMMARY | 2022-06-18 16:18 | XMS_ITS | Encounter Summary ---
:1965 Author Organization [facility] Address [address] [place] [address] Care Team Providers Name Role Phone Elsewhere, Pcp Primary Care Provider Unavailable Encounter Details Date Type Department Care Team Description 11/27/2020 Ancillary Procedure Department of Gastroenterology Social History [...] How often do you attend mandaen or oriental orthodox services? 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 [address] [place] [phone] (Wo janye) 06/22/2022 Infusion Oncology Maria Del Rosario Gomez APRN, Remy.N .P., M.S. [address] [place] [phone] (Wo rk) 06/29/2022 Lab Laboratory Medicine Maria Del Rosario Gomez AP RN, C.N.P., M.S. [address] [place] [phone] (Wo rk) 06/29/2022 Infusion Oncology Maria Del Rosario Gomez APRN, C.N .Pamela., M.S. [address] [place] [phone] (Wo rk) documented as of this encounter Procedures Procedure Name Priority Date/Time Associated Diagnosis Comme nts GI AND GENERAL Routine 11/27/2020 6:55 AM Results for this SURGERY IMAGE EXAM CDT procedure are in the results section. documented in this encounter Results UPPER EUS-GI And General Surgery Image Exam (11/27/2020 6:55 AM CDT) Specimen (Source) Anatomical Collection Method Collection Time Re ceived Time Location / / Volume Laterality 11/27/2020 6:54 AM CDT Narrative [facility] - 11/27/2020 9:16 AM CDT This order has been created [...] on filedocumented in this encounter Care Teams Rig Superintendent Relationship Specialty Start Date End Date Elsewhere, Pcp PCP - General Family Medicine 08/12/20 documented as of this encounter
--- OUTSIDE RECORDS SUMMARY | 2022-06-18 16:18 | XMS_ITS | Encounter Summary ---
:1965 Author Organization [facility] Address [address] [place] [address] Care Team Providers Name Role Phone Elsewhere, Pcp Primary Care Provider Unavailable Reason for Visit Outpatient (Routine) - Closed Specialty Diagnoses / Procedures Referred By Contact Refer red To Contact Infectious Diseases Gina Aranda [place] [facility] P.A.-C. 200 [place] [address] Referral ID Status Reason Start Date Expiration Date Visits Requ ested Visits Authorized [id number] Closed 11/11/2020 11/11/2021 1 1 Encounter Details Date Type Department Care Team Description 11/26/2020 Office Visit Section of Gina Aranda, Acute Pa ncreatitis With Infected Necrosis Unspecified (HCC) (Primary Dx); Infectious Diseases P.A.-C. Matrix Supervisor Antibiotic Treatment; in [place] [address] [facility] Malignant Neoplasm Of Pancreas (HCC) [place], [place] [address] [place] [phone] [place], [place] [phone] (Wo rk) [id number] [phone] Social History Tobacco Use Types Packs/Day Years [...] How often do you attend hinduism or lutheran services? 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 - 11/26/2020 1:30 PM CDT Infectious Diseases-Subsequent Visit Note SUBJECTIVE Referring Provider: Gina Aranda P.A.-C. REASON FOR CONSULT Follow-up, necrotizing pancreatitis HISTORY [...] formation in 07/2020. He had an associated Strep anginosus bloodstream infection and received 6 weeks of antibiotics. He was initially on ceftriaxone, however developed increasing liver enzymes and was transitioned to ertapenem. He continued ertapenem until 09/23. Mr. Campbell was then admitted 10/01-10/02 with abdominal pain and fever. [...] 10/30 with plans to continue until source control. Mr. Campbell underwent CT abdomen/pelvis (11/05) which [...] was noted from the cyst gastrostomy tract. He was continued on ertapenem. Mr. Campbell returns today in follow-up. He has been feeling much better. He has been able to gain weight and his appetite has improved. No recent fevers. He is tolerating ertapenem without issue. No difficulties with his PICC line. He denies any diarrhea. REVIEW OF SYSTEMS I have reviewed the encounter review of systems and pertinent responses are noted in the history. The following portions of the patient's history were reviewed and updated as appropriate: allergies,current medications, problem list, social history, medical history and surgical history. OBJECTIVE Vitals: 11/26/20 1315 Temp: 36.6 ??C Weight: 68.5 kg TempSrc: Tympanic PHYSICAL EXAM Vitals signs reviewed. Constitutional Appearance: Normal appearance. Abdominal General: Abdomen is flat. Palpations: Abdomen is soft. Tenderness: There is abdominal tenderness in the left upper quadrant and left lower quadrant. Thereis no guarding or rebound. Skin Comments: PICC in left upper extremity appears healthy. Neurological General: No focal deficit present. Mental Status: He is alert. Psychiatric Mood and Affect: Mood normal. Behavior: Behavior normal. LABS Results from last 7 days Lab Units 11/26/20 1037 HEMOGLOBIN g/dL 9.6* HEMATOCRIT % 31.9* RBC AUTO x10(12)/L 4.06* MCV fL 78.6 RBC DISTRIBUTION WIDTH AUTO % 18.7* WBC x10(9)/L 10.0* NEUTROPHILS AUTO x10(9)/L 7.47* LYMPHS ABSOLUTE x10(9)/L 1.36 MONOS ABS AUTO x10(9)/L 0.72 EOS ABS AUTO x10(9)/L 0.35 BASOS ABS AUTO x10(9)/L 0.08 PLATELETS AUTO x10(9)/L 365* Results from last 7 days Lab Units 11/26/20 1037 ALT U/L 66* Results from last 7 days Lab Units 11/26/20 1037 11/19/20 1100 CREATININE mg/dL 0.76 -- EXT CREATININE mg/dL -- 0.7 RENAL FUNCTION Estimated Creatinine Clearance: 105.2 mL/min (by C-G formula based on SCr of 0.76 mg/dL). MICROBIOLOGY 11/05 SARS-CoV-2 PCR undetected. 10/26 VRE PCR negative. 10/23 Blood: No growth. 10/21 Blood: No growth. 10/18 Blood: No growth. IMAGING REVIEWED 11/26 CT abdomen/pelvis: Walled off necrosis in the pancreatic bed with extension to the pericolonic area on the left has decreased in size. ANTIMICROBIALS Ertapenem 1 g IV every 24 [...] was noted at the time of procedure. Ertapenem was extended. Mr. Campbell had a repeat CT today which shows the area of walled-off necrosis to be decreasing in size. Clinically he has been improving. He has been tolerating ertapenem well. He is scheduled for a repeat necrosectomy tomorrow (11/27). I would like to extend ertapenem through 11/29 (Monday) to give him acouple days after his necrosectomy. At that point we can discontinue antibiotics and observe. If there are further concerns for infection, please do not hesitate to call us back. Mr. Campbell will have his PICC line removed on 11/30. He does have an IVAD in place for chemotherapy. RECOMMENDATIONS 1. Ertapenem 1 g IV every 24 hours. Stop date 11/29/2020 2. Remove PICC line on 11/30. 3. Await results from necrosectomy 11/27. 4. No routine ID follow up needed. Treatment plan reviewed with Mr. Campbell and his family. They expressed understanding. All questions answered to their satisfaction. Case discussed with Dr. Kaminski. ADDENDUM Mr. Campbell had a repeat necrosectomy (11/27) during which minimal pus and necrosis was encountered. Nochanges to the above recommendations. Fior Aranda P.A.-C. documented in this encounter Plan of Treatment Upcoming Encounters Date Type Specialty Care Team Description 06/22/2022 Lab Laboratory Medicine Maria Del Rosario Gomez AP RN, C.N.P., M.S. [address] [place] [phone] (Mj godoy) 06/22/2022 Infusion Oncology Maria Del Rosario Gomez APRN, C.N .P., M.S. [address] [place] [phone] (Mj godoy) 06/29/2022 Lab Laboratory Medicine Maria Del Rosario Gomez AP RN, C.N.P., M.S. [address] [place] [phone] (Mj godoy) 06/29/2022 Infusion Oncology Maria Del Rosario Gomez APRN, C.N .P., M.S. [address] [place] [phone] (Mj godoy) documented as of this encounter Visit Diagnoses Diagnosis Acute Pancreatitis With Infected Necrosi s Unspecified (HCC) - Primary Matrix Supervisor Antibiotic Treatment Malignant Neoplasm Of Pancreas (HCC) documented in this encounter Care Teams Controls Designer Relationship Specialty Start Date End Date Elsewhere, Pcp PCP - General Family Medicine 08/12/20 documented as of this encounter
--- OUTSIDE RECORDS SUMMARY | 2022-06-18 16:18 | XMS_ITS | Encounter Summary ---
:1965 Author Organization [facility] Address [address] [place] [address] Care Team Providers Name Role Phone Elsewhere, Pcp Primary Care Provider Unavailable Reason for Visit Reason Comments OPAT Care Coordination Encounter Details Date Type Department Care Team Description 11/18/2020 Clinical Communication Section of Irene Jimenez (Care Infectious Diseases M, R.N. Coordination) in [place] [address] [address] [place], [place] [address] [facility] [address] [place], [place] [phone] (Work) [phone] Social History Tobacco Use Types Packs/Day Years [...] How often do you attend confucianism or mosque services? 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 - 11/18/2020 9:38 AM CST Daniel calls from [facility], She requests that lab orders be placed for labs on 11/26 prior to ID appointment. Labs were ordered. E TESTER documented in this encounter Plan of Treatment Upcoming Encounters Date Type Specialty Care Team Description 06/22/2022 Lab Laboratory Medicine Maria Del Rosario Gomez AP RN, C.N.P., M.S. [address] [place] [phone] (Mj godoy) 06/22/2022 [facility], C.N .P., M.S. [address] [place] [phone] (Mj goody) 06/29/2022 Lab Laboratory Medicine [place] pierre AP RN, C.N.P., M.S. [address] [place] [phone] (Mj godoy) 06/29/2022 Infusion Oncology [place] pier[place] APRN, C.N .P., M.S. [address] [place] [phone] (Mj godoy) documented as of this encounter Results Creatinine with Estimated GFR (11/26/2020 10:37 AM CDT) athologist Signature Creatinine 0.76 0.74 - 11/26/2020 DTL 1.35 mg/dL 11:26 AM CDT eGFR-Non >90 >=60 11/26/2020 DTL Black/ mL/min/BSA 11:26 AM CDT [place] Comment: ----ADDITIONAL INFORMATION---- Estimated GFR calculated using [...] Phon e Number [facility] - [address] [place], [place] [address] [facility] [place] [address] Laboratories-[facility] [address] [facility] (ABNORMAL) CBC with Differential, Blood (11/26/2020 10:37 AM CDT) [facility] Method Time Signature Hemoglobin 9.6 (L) [...] P.A.-C. LAB BLOOD ADD-ON Performing Organization Address City/[facility] Phon e Number [facility] - [address] [place] [address] (ABNORMAL) ALT (Alanine Aminotransferase) (11/26/2020 10:37 AM CDT) [facility] gist Method Time Signature Alanine 66 (H) 7 - 55 11/26/2020 DTL Aminotransferase U/L 11:26 AM CDT (ALT), S Specimen Anatomical Collection Method Collection Time Receive d Time (Source) Location / / Volume Laterality Blood (Blood, 11/26/2020 10:37 11/26/2020 Venous) AM CDT 10:51 AM CDT Roxie Adorno P.A.-C. LAB BLOOD ADD-ON Performing Organization Address City/[facility] Phon e Number [facility] - [address] documented in this encounter Visit Diagnoses Diagnosis Senior Care Antibiotic Treatment - Primary documented in this encounter Care Teams Sld Teacher Relationship Specialty Start Date End Date Elsewhere, Pcp PCP - General Family Medicine 08/12/20 documented as of this encounter
--- OUTSIDE RECORDS SUMMARY | 2022-06-18 16:18 | XMS_ITS | Encounter Summary ---
:1965 Author Organization [facility] Address [address] [place] [address] Care Team Providers Name Role Phone Elsewhere, Pcp Primary Care Provider Unavailable Reason for Visit Reason Comments OPAT Care Coordination Encounter Details Date Type Department Care Team Description 11/20/2020 Clinical Communication Section of Irene Jimenez (Care Infectious Diseases M, R.N. Coordination) in [place] [address] [address] [place], [place] [address] [facility] [address] [place], [place] [phone] (Work) [phone] Social History Tobacco Use Types Packs/Day Years [...] How often do you attend sabianist or zoroastrian services? 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 - 11/20/2020 12:51 PM CST Daniel calls from [facility]. Patient will be here on 11/26. He would like to have his port site care done. Order was placed. Appointment desk to call patient. CH RUBBER documented in this encounter Plan of Treatment Upcoming Encounters Date Type Specialty Care Team Description 06/22/2022 Lab Laboratory Medicine Maria Del Rosario Gomez AP RN, C.N.P., M.S. [address] [place] [phone] (Mj godoy) 06/22/2022 Infusion Oncology Maria Del Rosario Gomez APRN, Remy.N .P., M.S. [address] [place] [phone] (Mj godoy) 06/29/2022 Lab Laboratory Medicine Maria Del Rosario Gomez AP RN, C.N.P., M.S. [address] [place] [phone] (Mj rk) 06/29/2022 Infusion Oncology Maria Del Rosario Gomez APRN, C.N .P., M.S. [address] [place] [phone] (Mj godoy) documented as of this encounter Visit Diagnoses Diagnosis Senior Living Antibiotic Treatment - Primary documented in this encounter Care Teams Electrical Laboratory Technician Relationship Specialty Start Date End Date Elsewhere, Pcp PCP - General Family Medicine 08/12/20 documented as of this encounter
--- OUTSIDE RECORDS SUMMARY | 2022-06-18 16:18 | XMS_ITS | Encounter Summary ---
:1965 Author Organization [facility] Address [address] [place] [id number] Care Team Providers Name Role Phone Elsewhere, Pcp Primary Care Provider Unavailable Reason for Visit Reason Comments OPAT Normal Labs Encounter Details Date Type Department Care Team Description 11/19/2020 Clinical Communication Section of Sameera Villatoro T (Normal Labs) Infectious Diseases L, R.N. in [place] [address] [address] [place], [place] [address] [facility] [address] [place], [place] [phone] (Work) [phone] Social History Tobacco Use Types Packs/Day Years [...] How often do you attend christianity or nondenominational services? 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 - 11/20/2020 12:19 PM TURNING MACHINE OPERATOR OPAT NOTE Infusion Provider: [facility], phone: [phone], fax: [phone] Antimicrobial(s) currently prescribed: See Med List Hyperlink in note Tentative stop date: 11/25/20; final stop date to be determined at follow up visit. Date of ID follow up appt: 11/26/20. Lab results from 11/19/20 are viewable in the [facility] as external labs (received via fax) Interpretation and action: The labs were satisfactory per OPAT Practice Guideline. ING MACHINE OPERATOR documented in this encounter Plan of Treatment Upcoming Encounters Date Type Specialty Care Team Description 06/22/2022 Lab Laboratory Medicine Maria Del Rosario Gomez AP RN, C.N.P., M.S. [address] [place] [address] [phone] (Mj godoy) 06/22/2022 Infusion Oncology Maria Del Rosario Gomez APRN, C.N .P., M.S. [address] [place] [address] [phone] (Mj godoy) 06/29/2022 Lab Laboratory Medicine Maria Del Rosario Gomez AP RN, C.N.P., M.S. [address] [place] [address] [phone] (Mj godoy) 06/29/2022 Infusion Oncology Maria Del Rosario Gomez APRN, C.N .P., M.S. [address] [place] [address] [phone] (Mj godoy) documented as of this encounter Procedures Procedure Name Priority Date/Time Associated Comments Diagnosis CBC WITHOUT Routine 11/19/2020 11:00 Results for this DIFFERENTIAL, B AM TURNING MACHINE OPERATOR procedure ar e in the results section. CBC WITH DIFFERENTIAL, B Routine 11/19/2020 11:00 Results for this AM TURNING MACHINE OPERATOR procedure are i n the results section. CBC WITH DIFFERENTIAL, B Routine 11/19/2020 11:00 Results for this AM TURNING MACHINE OPERATOR procedure are i n the results section. HEMOGLOBIN, B Routine 11/19/2020 11:00 Results fo r this AM TURNING MACHINE OPERATOR procedure are i n the results section. ALANINE AMINOTRANSFERASE Routine 11/19/2020 11:00 Results for this (ALT), S/P AM TURNING MACHINE OPERATOR procedure are i n the results section. CREATININE WITH EGFR, Routine 11/19/2020 11:00 Re sults for this S/P AM TURNING MACHINE OPERATOR procedure are i n the results section. documented in this encounter Results Creatinine with Estimated GFR (11/19/2020 11:00 AM TURNING MACHINE OPERATOR) P athologist Signature EXT Creatinine 0.7 mg/dL OTHER (SPECIFY IN POLISHER ALUMINUM) Specimen (Source) Anatomical Location Collection Method / Collectio n Time Received Time / Laterality Volume Blood (Blood, Venous) Narrative This result has an attachment that is no t available. Resulting Agency Comment [facility] Jas Kaufman M.D. LAB BLOOD ADD-ON Performing Organization Address City/State/ZIP Code Phon e Number OTHER (SPECIFY IN POLISHER ALUMINUM) OTHER (SPECIFY IN POLISHER ALUMINUM) N/A CBC with Differential, Blood (11/19/2020 11:00 AM TURNING MACHINE OPERATOR) P athologist Signature EXT Eosinophils 0.19 OTHER (SPECIFY IN POLISHER ALUMINUM) Specimen (Source) Anatomical Location Collection Method / Collectio n Time Received Time / Laterality Volume Blood (Blood, Venous) Resulting Agency Comment [facility] Jas Kaufman M.D. LAB BLOOD ADD-ON Performing Organization Address City/State/[facility] Code Phon e Number OTHER (SPECIFY IN POLISHER ALUMINUM) OTHER (SPECIFY IN POLISHER ALUMINUM) N/A CBC without Differential (11/19/2020 11:00 AM TURNING MACHINE OPERATOR) P athologist Signature EXT White Blood 9.9 OTHER (SPECIFY Cell (WBC) IN POLISHER ALUMINUM) Count Specimen (Source) Anatomical Location Collection Method / Collectio n Time Received Time / Laterality Volume Blood (Blood, Venous) Resulting Agency Comment [facility] Jas Kaufman M.D. LAB BLOOD ADD-ON Performing Organization Address City/State/ZIP Code Phon e Number OTHER (SPECIFY IN POLISHER ALUMINUM) OTHER (SPECIFY IN POLISHER ALUMINUM) N/A CBC with Differential, Blood (11/19/2020 11:00 AM TURNING MACHINE OPERATOR) P athologist Signature EXT Platelet 513 OTHER (SPECIFY Count IN POLISHER ALUMINUM) EXT Absolute 7.48 OTHER (SPECIFY Neutrophils IN POLISHER ALUMINUM) Specimen (Source) Anatomical Location Collection Method / Collectio n Time Received Time / Laterality Volume Blood (Blood, Venous) Resulting Agency Comment [facility] Jas Kaufman M.D. LAB BLOOD ADD-ON Performing Organization Address City/State/ZIP Code Phon e Number OTHER (SPECIFY IN POLISHER ALUMINUM) OTHER (SPECIFY IN POLISHER ALUMINUM) N/A Hemoglobin (11/19/2020 11:00 AM TURNING MACHINE OPERATOR) P athologist Signature EXT Hemoglobin 9.5 OTHER (SPECIFY IN POLISHER ALUMINUM) Specimen (Source) Anatomical Location Collection Method / Collectio n Time Received Time / Laterality Volume Blood (Blood, Venous) Resulting Agency Comment [facility] Jas Kaufman M.D. LAB BLOOD ADD-ON Performing Organization Address City/State/ZIP Code Phon e Number OTHER (SPECIFY IN POLISHER ALUMINUM) OTHER (SPECIFY IN POLISHER ALUMINUM) N/A ALT (Alanine Aminotransferase) (11/19/2020 11:00 AM TURNING MACHINE OPERATOR) P athologist Signature EXT ALT 45 4 - 50 OTHER (SPECIFY IN POLISHER ALUMINUM) Specimen (Source) Anatomical Location Collection Method / Collectio n Time Received Time / Laterality Volume Blood (Blood, Venous) Resulting Agency Comment [facility] Jas Kaufman M.D. LAB BLOOD ADD-ON Performing Organization Address City/State/ZIP Code Phon e Number OTHER (SPECIFY IN POLISHER ALUMINUM) OTHER (SPECIFY IN POLISHER ALUMINUM) N/A documented in this encounter Visit Diagnoses Not on filedocumented in this encounter Care Teams Conference Assistant Relationship Specialty Start Date End Date Elsewhere, Pcp PCP - General Family Medicine 08/12/20 documented as of this encounter
--- OUTSIDE RECORDS SUMMARY | 2022-06-18 16:18 | XMS_ITS | Encounter Summary ---
:1965 Author Organization [facility] Address [address] [place] [address] Care Team Providers Name Role Phone Elsewhere, [...] How often do you attend sikh or taoist services? Never 01/15/2021 Do you [...] at Date Recorded Male 08/18/2021 2:55 PM ESTIMATING MANAGER documented as of this encounter Plan of Treatment Upcoming Encounters Date Type Specialty Care Team Description 06/22/2022 Lab Laboratory Medicine Maria Del Rosario Gomez AP RN, C.N.P., M.S. [address] [place] [address] [phone] (Wo jayne) 06/22/2022 Infusion Oncology Maria Del Rosario Gomez APRN, Remy.N .P., M.S. [address] [place] [address] [phone] (Wo rk) 06/29/2022 Lab Laboratory Medicine Maria Del Rosario Gomez AP RN, C.N.P., M.S. [address] [place] [address] [phone] (Wo rk) 06/29/2022 Infusion Oncology Maria Del Rosario Gomez APRN, C.N .Pamela., M.S. [address] [place] [address] [phone] (Wo rk) documented as of this encounter Procedures Procedure Name Priority Date/Time Associated Diagnosis Comme nts GI AND GENERAL Routine 11/10/2020 7:55 AM Results for this SURGERY IMAGE EXAM ESTIMATING MANAGER procedure are in the results section. documented in this encounter Results Non-Radiology Image-GI And General Surgery Image Exam (11/10/2020 7:55 AM ESTIMATING MANAGER) Specimen (Source) Anatomical Collection Method Collection Time Re ceived Time Location / / Volume Laterality 11/10/2020 7:54 AM ESTIMATING MANAGER Narrative [facility]IMS - 11/10/2020 9:59 AM ESTIMATING MANAGER This order has been created and auto-finalized [...] on filedocumented in this encounter Care Teams Crm Marketing Manager Relationship Specialty Start Date End Date Elsewhere, Pcp PCP - General Family Medicine 08/12/20 documented as of this encounter
--- OUTSIDE RECORDS SUMMARY | 2022-06-18 16:18 | XMS_ITS | Encounter Summary ---
:1965 Author Organization [facility] Address [address] [place] [id number] Care Team Providers Name Role Phone Elsewhere, Pcp Primary Care Provider Unavailable Reason for Referral Outpatient (Routine) - Closed Specialty Diagnoses / Procedures Referred By Contact Refer red To Contact Diagnoses Pancreatitis Acute (HCC) Ernesto Curiel M.D. [facility] Procedures FL Fluoro Less Than 1 Hour [address] [place] [phone] Referral ID Status Reason Start Date Expiration Date Visits Requ ested Visits Authorized [id number] Closed 11/27/2020 11/27/2021 1 1 Reason for Visit Outpatient (Routine) - Closed Specialty Diagnoses / Procedures Referred By Contact Refer red To Contact Diagnoses Pancreatitis Acute (HCC) Ernesto Curiel M.D. [facility] Procedures FL Fluoro Less Than 1 Hour [address] [place] [phone] Referral ID Status Reason Start Date Expiration Date Visits Requ ested Visits Authorized [id number] Closed 11/27/2020 11/27/2021 1 1 Encounter Details Date Type Department Care Team Description 11/27/2020 Hospital Encounter Department of Ernesto Curiel Pancr eatitis Acute Radiology, Hernan Sifuentes M.D. ([facility]) Building, in [address] [place] [phone] [place] [address] [place], [place] (Work) [phone] Social History Tobacco Use Types Packs/Day Years [...] How often do you attend judaism or mandaen services? 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 [address] [place] [address] [phone] (Mj godoy) 06/22/2022 Infusion Oncology Maria Del Rosario Gomez APRN, C.N .P., M.S. [address] [place] [address] [phone] (Mj godoy) 06/29/2022 Lab Laboratory Medicine Maria Del Rosario Gomez AP RN, C.N.P., M.S. [address] [place] [address] [phone] (Mj godoy) 06/29/2022 Infusion Oncology Maria Del Rosario Gomez GUERO Sanchez, C.N .P., M.S. [address] [place] [phone] (Wo rk) documented as of this encounter Procedures Procedure Name Priority Date/Time Associated Diagnosis Comme nts FL FLUORO LESS THAN Routine 11/27/2020 9:14 AM Pancreatitis Ac [place] Results for this 1 HOUR CDT (HCC) procedure are i n the results section. documented in this encounter Results FL Fluoro Less Than 1 Hour (11/27/2020 9:14 AM CDT) Specimen (Source) Anatomical Location Collection Method / Collectio n Time Received Time / Laterality Volume Narrative ERCP LOS RST - 11/27/2020 9:15 AM CDT This exam does not require a radiologist review or interpretation. Please refer to the patient's medical record on this date for clinical details. Ernesto WONG FLUOROSCOPY PROCEDURES Performing Organization Address City/State/ZIP Code Phon e Number ERCP LOS RST documented in this encounter Visit Diagnoses Diagnosis Pancreatitis Acute (HCC) documented in this encounter Care Teams Wrapping Machine Operator Relationship Specialty Start Date End Date Elsewhere, Pcp PCP - General Family Medicine 08/12/20 documented as of this encounter
--- OUTSIDE RECORDS SUMMARY | 2022-06-18 16:19 | XMS_ITS | Encounter Summary ---
:1965 Author Organization [facility] Address [address] [place] [address] Care Team Providers Name Role Phone Elsewhere, Pcp Primary Care Provider Unavailable Reason for Visit Appointment Request (Routine) - Closed Specialty Diagnoses / Procedures Referred By Contact Refer red To Contact Oncology Referral ID Status Reason Start Date Expiration Date Visits Requ ested Visits Authorized [id number] Closed 10/30/2020 10/30/2021 1 1 Encounter Details Date Type Department Care Team Description 11/06/2020 Office Visit Department of Oncology Deborah Murray Malig nant Neoplasm Of Pancreas (HCC) (Primary Dx); [facility] Acute Pancreatitis With Infected Necrosi s Unspecified (HCC) [place] [address] [facility] [address] [place] [phone] Social History Tobacco Use Types Packs/Day Years [...] How often do you attend buddhist or church services? 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 - 11/06/2020 8:20 AM CST CHIEF COMPLAINT/PURPOSE OF VISIT: Localized pancreas cancer, borderline resectable Ongoing pancreatitis with infected necrosis CURRENT TREATMENT/MANAGEMENT PLAN Received 1 dose of gemcitabine plus Abraxane in early October 2020 dated by pancreatitis. Treatmenton hold currently. PRIMARY CARE PHYSICIAN ELSEWHERE, PCP REQUESTING PROVIDER No referring provider defined for this encounter. LOCAL ONCOLOGIST No care steam shovel oiler to display PRIMARY VESTAL ONCOLOGIST Deborah Murray M.B.B.S. HISTORY OF PRESENT [...] Mr. Campbell returns today for evaluation. He received the 1st dose of chemotherapy on October 16 butwas complicated by hospitalization for pancreatitis and infection. He was seen by infectious diseaseand recommended ongoing IV antibiotic and to at least November 11, 2020. Patient is also followed in a en doscopy/GI team for source control. He was discharged from the hospital on October 30, 2020 and is still currently recovering. ROS: Pertinent items are noted in HPI; [...] Pulmonary effort is normal. No respiratory distress. Neurological Mental Status: He is alert and oriented to person, place, and time. DIAGNOSTICS: I reviewed the imaging studies and agree with the interpretation as recorded. I reviewed the pertinent laboratory and diagnostic data. ASSESSMENT/PLAN: #1 Malignant Neoplasm Of Pancreas (HCC) #2 Acute Pancreatitis With Infected Necrosis Unspecified (HCC) Mr. Campbell is a 55 y.o. male with localized pancreas cancer and a history of pancreatitis and peripancreatic abscess. We have monitored him closely and eventually completed the prescribed course of antibiotic. As such, chemotherapy was cautiously started but unfortunately complicated by repeat hospitalization for necrotizing pancreatitis. He is currently on antibiotic per Infectious Disease recommendation until at least November 11, 2020 or until source control. He was seen by a endoscopy team yesterday and he is scheduled for repeat endoscopy next Monday. Given the recent development, I do not recommend resuming systemic chemotherapy until the necrotizing pancreatitis is adequately controlled. Patient and his expressed understanding of the plan outlined above, and are agreeable. We will plan tosee him back in 3 weeks for follow-up. PATIENT EDUCATION Ready to learn, no apparent learning barriers were identified; learning preferences include listening. Explained diagnosis and treatment plan; patient expressed understanding of the content. ADMINISTRATIVE BILLING I personally spent a total 25 minutes on the evaluation, development of the management plan, discussion/education and coordination of care as described above. This include [id number] and non [id number] time. ER MACHINE documented in this encounter Plan of Treatment Upcoming Encounters Date Type Specialty Care Team Description 06/22/2022 Lab Laboratory Medicine Maria Del Rosario Gomez AP RN, C.N.P., M.S. [address] [place] [address] [phone] (Mj godoy) 06/22/2022 Infusion Oncology VerdiMaria Del Rosario pierre APRN, Remy.N .P., M.S. [address] [place] [address] [phone] (Mj godoy) 06/29/2022 Lab Laboratory Medicine Maria Del Rosario Gomez AP RN, C.N.P., M.S. [address] [place] [address] [phone] (Mj godoy) 06/29/2022 Infusion Oncology Maria Del Rosario Gomez APRN, C.N .Pamela., M.S. [address] [place] [address] [phone] (Mj godoy) documented as of this encounter Visit Diagnoses Diagnosis Malignant Neoplasm Of Pancreas (HCC) - P rimary Acute Pancreatitis With Infected Necrosi s Unspecified (HCC) documented in this encounter Care Teams Engraver Steel Plate Relationship Specialty Start Date End Date Elsewhere, Pcp PCP - General Family Medicine 08/12/20 documented as of this encounter
--- OUTSIDE RECORDS SUMMARY | 2022-06-18 16:19 | XMS_ITS | Encounter Summary ---
:1965 Author Organization [facility] Address [address] [place] [phone] Care Team Providers Name Role Phone Elsewhere, Pcp Primary Care Provider Unavailable Reason for Referral MRI/CAT/PET Scan (Routine) - Closed Specialty Diagnoses / Procedures Referred By Contact Refer red To Contact Radiology Diagnoses Pancreatitis Acute (HCC) Ernesto Curiel M.D. [place] Procedures CT Abdomen Pelvis with IV Contrast [address] [place] [phone] Referral ID Status Reason Start Date Expiration Date Visits Requ ested Visits Authorized [id number] Closed 11/02/2020 11/02/2021 1 1 EL CREW MEMBER Reason for Visit MRI/CAT/PET Scan (Routine) - Closed Specialty Diagnoses / Procedures Referred By Contact Refer red To Contact Radiology Diagnoses Pancreatitis Acute (HCC) Ernesto Curiel M.D. [place] [facility] Procedures CT Abdomen Pelvis with IV Contrast [address] [place] [address] [phone] Referral ID Status Reason Start Date Expiration Date Visits Requ ested Visits Authorized [id number] Closed 11/02/2020 11/02/2021 1 1 Encounter Details Date Type Department Care Team Description 11/05/2020 Hospital Encounter Department of Ernesto Curiel Pancr eatitis Acute Radiology, Bradley Sifuentes M.D. ([facility]) [facility], in [address] [place] [phone] [place], [place] (Work) [phone] Social History Tobacco Use Types Packs/Day Years [...] How often do you attend sikh or gnosticist services? Never 01/15/2021 Do you [...] at Date Recorded Male 08/18/2021 2:55 PM VESSEL CREW MEMBER documented as of this encounter Medications at [...] Gomez AP RN, C.N.P., M.S. [address] [place] [address] [phone] ([place]j godoy) 06/22/2022 Infusion Oncology Maria Del Rosario Gomez APRN, C.N .P., M.S. [address] [place] [address] [phone] (Mj godoy) 06/29/2022 Lab Laboratory Medicine Maria Del Rosario Gomez AP RN, C.N.P., M.S. [address] [place] [address] [phone] (Mj godoy) 06/29/2022 Infusion Oncology Maria Del Rosario Gomez, GUERO, C.N .P., M.S. [address] [place] [address] [phone] (Wo rk) documented as of this encounter Procedures Procedure Name Priority Date/Time Associated Comments Diagnosis CT ABDOMEN PELVIS RAD - Routine 11/05/2020 3:51 Pancreatitis Acute Results for this WITH IV CONTRAST (most inpatients PM VESSEL CREW MEMBER (HCC) procedu re are in and all the results outpatients) section. documented in this encounter Results CT Abdomen Pelvis with IV Contrast (11/05/2020 3:51 PM VESSEL CREW MEMBER) Anatomical Region Laterality Modality Abdomen, Pelvis, Abdominal RST LOS, N/A Comp uted Tomography, Computed Abdominal ARZ LOS, Abdominal FLA LOS Dileep ography Specimen (Source) Anatomical Collection Method Collection Time Re ceived Time Location / / Volume Laterality 11/05/2020 4:00 PM V[employer]SEL CREW MEMBER Impressions 11/05/2020 4:27 PM VESSEL CREW MEMBER Loose Axios stent in the colon. Remainder not significantly changed. See findings for details. Narrative 11/05/2020 4:27 PM VESSEL CREW MEMBER EXAM: ??CT ABDOMEN PELVIS WITH IV CONTRAST COMPARISON: ??10/26/2020 FINDINGS: ?? The Axios stent placed 10/29/2020 per GI interventional report has fallen out and is now located in the lumen of the t ransverse colon. No bowel obstruction. There are now 3 pigtail stents which pas s from the stomach into the walled off gas containing necrosis in the left abdo men. The necrosis extends for approximately 17 cm in a cranial-caudal axis. Another walled off component without gas extends from the stomach to the space between the spleen and posteromedial left hemidiaphragm. The ov erall quantity of necrotic material has not significantly declined. Metallic common bile duct stent again no sally. Expected gas is present in the gallbladder, common bile duct, and intra hepatic biliary tree. 1.2 cm vague low-attenuation area in the right hepati c lobe inferiorly measured 2.4 cm previously. Severely narrowed distal SMV, splenic ve in, proximal portal vein again noted. There is again a nearby 2.1 cm x 1.7 cm ovoid uncinate process mass. The narrowed portal vein passes through and along this lesion. Collateral venous vascularity is present throughout the ga stric fundus and elsewhere. Atelectasis has declined in the partiall y visualized right lung. A 0.4 cm nodule seen in the right lung base. Fluid along the partially visualized left major pulmonary fissure has declined. Atelecta sis in the lingula and partially visualized left lower pulmonary lobe luana w some improvement. Moderate amount of left pleural fluid remains. Left gonadal vein embolization coils. Fr ee fluid in the pelvis. Procedure Note Vladislav Pack M.D., Ph.D. - 11/05/19 21 EXAM: CT ABDOMEN PELVIS WITH IV CONTRAST COMPARISON: 10/26/2020 FINDINGS: The Axios stent placed 10/29/2020 per GI interventional report has fallen out and is now located in the lumen of the t ransverse colon. No bowel obstruction. There are now 3 pigtail stents which pas s from the stomach into the walled off gas containing necrosis in the left abdo men. The necrosis extends for approximately 17 cm in a cranial-caudal axis. Another walled off component without gas extends from the stomach to the space between the spleen and posteromedial left hemidiaphragm. The ov erall quantity of necrotic material has not significantly declined. Metallic common bile duct stent again no sally. Expected gas is present in the gallbladder, common bile duct, and intra hepatic biliary tree. 1.2 cm vague low-attenuation area in the right hepati c lobe inferiorly measured 2.4 cm previously. Severely narrowed distal SMV, splenic ve in, proximal portal vein again noted. There is again a nearby 2.1 cm x 1.7 cm ovoid uncinate process mass. The narrowed portal vein passes through and along this lesion. Collateral venous vascularity is present throughout the ga stric fundus and elsewhere. Atelectasis has declined in the partiall y visualized right lung. A 0.4 cm nodule seen in the right lung base. Fluid along the partially visualized left major pulmonary fissure has declined. Atelecta sis in the lingula and partially visualized left lower pulmonary lobe luana w some improvement. Moderate amount of left pleural fluid remains. Left gonadal vein embolization coils. Fr ee fluid in the pelvis. IMPRESSION: Loose Axios stent in the colon. Remainde r not significantly changed. See findings for details. Ernesto Curiel M.D. IMG CT PROCEDURES documented in this encounter Visit Diagnoses Diagnosis Pancreatitis Acute (HCC) documented in this encounter Administered Medications Inactive Administered Medications - up to 3 most recent administrations Medication Order MAR Action Action Date Dose Rate Site iohexoL 300 mg iodine/mL solution Given 11/05/2020 3:39 PM V[employer] MEMBER 1 40 mL 1-200 mL (OMNIPAQUE) 1-200 mL, intravenous, Once in imaging, contrast, Starting on Sandra 11/05/20 at 1458, For 1 dose, Imaging Protocol Orders, Dose per Radiant Medication Guidelines sodium chloride (PF) 0.9 % injection 1-1 00 mL Given 11/05/2020 3:39 PM VESSEL [employer]W MEMBER 50 mL 1-100 mL, intravenous, Once, On Sandra 11/05/20 at 1500, For 1 dose, Imaging Protocol Orders documented in this encounter Additional Health Concerns Infection Onset Date Last Indicated Resolved Time COVID19 Pending 11/05/2020 11/05/2020 11/06/2020 2:05 AM VESSEL [employer]W MEMBER documented as of this encounter Care Teams Status Controller Relationship Specialty Start Date End Date Elsewhere, Pcp PCP - General Family Medicine 08/12/20 documented as of this encounter
--- OUTSIDE RECORDS SUMMARY | 2022-06-18 16:19 | XMS_ITS | Encounter Summary ---
:1965 Author Organization [facility] Address [address] [place] [address] Care Team Providers Name Role Phone Elsewhere, Pcp Primary Care Provider Unavailable Encounter Details Date Type Department Care Team Description 11/05/2020 Office Visit Division of Ernesto Curiel Pancreatitis Acute Gastroenterology ej Sifuentes M.D. (HCC) (Primary Dx) [place], [place] [address] [facility] [address] [place] [phone] Social History Tobacco Use Types Packs/Day Years [...] How often do you attend druze or gnosticist services? Never 01/15/2021 Do you [...] Date Recorded Male 08/18/2021 2:55 PM ENVIRONMENTAL DIRECTOR documented as of this encounter Progress Notes Ernesto Curiel M.D. - 11/05/2020 4:30 PM CST SUBJECTIVE Patient ID: Adam Campbell is a 55 y.o. male who presents for evaluation of No chief complaint on file.. HPI Mr Adrian Campbell is 55-year-old gentleman with pancreatic cancer (07/2020) complicated by necrotizing pancreatitis who is here today for follow up after recent admission. 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 He was evaluated in mid September 2020 for necrotizing pancreatitis, however at that time it was felt that the loculated fluid collections were not mature enough for endoscopic drainage. ERCP was performed again on 10/01/2019, which noted a single tight localized biliary stricture in the common bileduct, with tissue ingrowth, so a bare metal stent was placed into the common bile duct. Pt was admitted to the Oncology service on 10/23/2020 for fever, with cross-sectional imaging showing necrotizingpancreatitis with increased quantity of fluid collection and gas. He was treated with Zosyn for concern for infected necrosis while in the hospital. He underwent endoscopy which showed evidence of a fistula going from the stomach to a necrotic cavity. There was significant gas in the the stomach thought to be from the necrotic cavity. Blood cultures have been no growth to date. He was started on abx,labs showed improving leukocytosis. ?? On 10/26, he underwent evaluation with EUS and endoscopy determine if he could have placement of a lumen apposing metal stent into the existing necrotic collections. Unfortunately, there was a lot of gas surrounding the stomach, so a cystgastrostomy with an AXIOS lumen apposing metal stent was not deemed safe. Instead, our endoscopy colleagues used in existing spontaneous gastric fistula and placed plastic stents through this area with return of pus. Positioning of drainage catheters was confirmed byIV contrasted CT obtained postprocedurally. On 10/29/2020, he underwent additional necrosectomy and placement of a 15/10 AXIOS stent beside the two existing plastic stents via a transgastric approach into a necrotic cavity with pus return. A 10 Fr x 20 cm urinary stent was placed through the AXIOS stent to allow for deeper drainage of the cavity. Clinically, Mr. Campbell did well after the procedure and was dismissed from the hospital. Patient reports since his hospitalization he has been doing well. He had significant gas he reports initially but this has lessened . He was discharged w plan to have a CT scan ordered w presumptive plan for necrosectomy the following week. Patient underwent CT today ?? Review of Systems As above General: Sitting comfortably. Alert, oriented x 3. Cooperative, in no acute distress. Lungs: Non-labored breathing on room air. Abdomen: Soft, non-distended, non-tender to palpation. No guarding or rebound tenderness. Extremities: Warm and well-perfused UE and LE. Skin: No rashes. Neuro: cn 2-12 intact, no focal deficitcs Psych: Appropriate affect. No SI, HI. CT AP: FINDINGS: ?? The Axios stent placed 10/29/2020 per GI interventional report has fallen out and is now located in the lumen of the transverse colon. No bowel obstruction. ?? There are now 3 pigtail stents which pass from the stomach into the walled off gas containing necrosis in the left abdomen. The necrosis extends for approximately 17 cm in a cranial-caudal axis. Another walled off component without gas extends from the stomach to the space between the spleen and posteromedial left hemidiaphragm. The overall quantity of necrotic material has not significantly declined. ?? Metallic common bile duct stent again noted. Expected gas is present in the gallbladder, common bile duct, and intrahepatic biliary tree. 1.2 cm vague low-attenuation area in the right hepatic lobe inferiorly measured 2.4 cm previously. ?? Severely narrowed distal SMV, splenic vein, proximal portal vein again noted. There is again a nearby 2.1 cm x 1.7 cm ovoid uncinate process mass. The narrowed portal vein passes through and along this lesion. Collateral venous vascularity is present throughout the gastric fundus and elsewhere. ?? Atelectasis has declined in the partially visualized right lung. A 0.4 cm nodule seen in the right lung base. Fluid along the partially visualized left major pulmonary fissure has declined. Atelectasis in the lingula and partially visualized left lower pulmonary lobe show some improvement. Moderate amount of left pleural fluid remains. ?? Left gonadal vein embolization coils. Free fluid in the pelvis. ?? IMPRESSION: Loose Axios stent in the colon. Remainder not significantly changed. See findings for details. ASSESSMENT / PLAN #. Walled off pancreatic necrosis, query infected, with systemic inflammation #. Spontaneous posterior gastric-cyst fistula - CT scan showing axios stent that was placed has migrated and is currently in transverse colon. He will require repeat procedure with placement of another axios stent and further necrosectomy. Given that it has only been a week and unfortunately he had stent dislodge this is likely why there has not been significant change in his fluid collections. - Infectious disease has left recommendations re: antibiotics, which appear to be Ertapenem via PICCline 1 gram q24 hours until 11/11/2020 OR until source control based on necrosectomy success. He will have a CBC, ALT, and creatinine monitored weekly while on this, sent to [place] OPAT monitoring program. He will have follow up with heme/onc ID on 11/11/2020. ?? #. 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 No high-risk stigmataof bleeding. Etiology of the gastric varices is likely from his known splenic vein occlusion. - these varices will be re-evaluated on this subsequent endoscopic evaluation, and once characterized, plans will be made to address these - need for anticoagulation based on chronic occlusion to be determined in outpatient setting but notlikely to be pursued because of chronicity Plan discussed with Dr Cassidy. Ernesto Curiel MD Pager: [phone] [facility] RONMENTAL DIRECTOR documented in this encounter Plan of Treatment Upcoming Encounters Date Type Specialty Care Team Description 06/22/2022 Lab Laboratory Medicine Maria Del Rosario Gomez AP RN, C.N.P., M.S. [address] [place] [phone] (Wo jayne) 06/22/2022 [facility] [address] [place] [address] [phone] (Wo rk) 06/29/2022 Lab Laboratory Medicine WynonaMaria Del Rosario pierre AP RN, C.N.P., M.S. [address] [place] [address] [phone] (Wo rk) 06/29/2022 Infusion Oncology WynonaMaria Del Rosario pierre APRN, C.N .P., M.S. [address] [place] [address] [phone] (Wo rk) documented as of this encounter Visit Diagnoses Diagnosis Pancreatitis Acute (HCC) - Primary documented in this encounter Additional Health Concerns Infection Onset Date Last Indicated Resolved Time COVID19 Pending 11/05/2020 11/05/2020 11/06/2020 2:05 AM ENVIRONMENTAL DIRECTOR documented as of this encounter Care Teams Statistical Assistant Relationship Specialty Start Date End Date Elsewhere, Pcp PCP - General Family Medicine 08/12/20 documented as of this encounter
--- OUTSIDE RECORDS SUMMARY | 2022-06-18 16:19 | XMS_ITS | Encounter Summary ---
:1965 Author Organization [facility] Address [address] [place] [address] Care Team Providers Name Role Phone Elsewhere, Pcp Primary Care Provider Unavailable Reason for Referral Outpatient (Routine) - Closed Specialty Diagnoses / Procedures Referred By Contact Refer red To Contact Infectious Diseases Diagnoses [facility] Renetta Love M.[facility] [address] [place] [phone] Referral ID Status Reason Start Date Expiration Date Visits Requ ested Visits Authorized [id number] Closed 10/30/2020 10/30/2021 1 1 L MAIL CARRIER Reason for Visit Reason Comments Post Hospital Follow-up OPAT Encounter Details Date Type Department Care Team Description 10/30/2020 Clinical [facility] Communication [address] [place] [address] Renetta Urban Follow-up; OPAT [place], [place] Chanelle Love [phone] [place] [phone] Social History Tobacco Use Types Packs/Day Years [...] How often do you attend scientology or restoration services? Never 01/15/2021 Do you [...] at Date Recorded Male 08/18/2021 2:55 PM RURAL MAIL CARRIER documented as of this encounter Miscellaneous Notes Telephone Encounter - Elizabeth Smith - 10/30/2020 11:24 AM CST Post hospital recommendations and OPAT weekly labs entered. L MAIL CARRIER documented in this encounter Plan of Treatment Upcoming Encounters Date Type Specialty Care Team Description 06/22/2022 Lab Laboratory Medicine Maria Del Rosario Gomez AP RN, C.N.P., M.S. [address] [place] [phone] ([facility]) 06/22/2022 Infusion Oncology Maria Del Rosario Gomez APRN, C.N .P., M.S. [address] [place] [address] [phone] ([facility]) 06/29/2022 Lab Laboratory Medicine Maria Del Rosario Gomez AP RN, C.N.P., M.S. [address] [place] [address] [phone] ( rk) 06/29/2022 Infusion Oncology Maria Del Rosario Gomez APRN, C.N .P., M.S. [address] [place] [address] [phone] ([facility]) Scheduled Referrals Name Type Priority Associated Diagnoses Order S chedule Infectious Diseases Outpatient Referral Routine Hypotension E xpected: office visit 11/11/2020 (clinic) (Approximate), Expires: 10/30/2023 documented as of this encounter Visit Diagnoses Diagnosis Hypotension - Primary documented in this encounter Care Teams Account Service Associate Relationship Specialty Start Date End Date Elsewhere, Pcp PCP - General Family Medicine 08/12/20 documented as of this encounter
--- OUTSIDE RECORDS SUMMARY | 2022-06-18 16:19 | XMS_ITS | Encounter Summary ---
:1965 Author Organization [facility] Address [address] [place] [address] Care Team Providers Name Role Phone Elsewhere, Pcp Primary Care Provider Unavailable Reason for Referral Outpatient (Routine) - Closed Specialty Diagnoses / Procedures Referred By Contact Refer red To Contact Diagnoses Pancreatitis Acute (HCC) Ernesto Curiel M.D. [facility] Procedures EUS [address] [place] [address] Referral ID Status Reason Start Date Expiration Date Visits Requ ested Visits Authorized [id number] Closed 11/02/2020 11/02/2021 1 1 IC HEALTH PHYSICIAN Reason for Visit Outpatient (Routine) - Closed Specialty Diagnoses / Procedures Referred By Contact Refer red To Contact Diagnoses Pancreatitis Acute (HCC) Ernesto Curiel M.D. [facility] Procedures EUS [address] [place] [address] Referral ID Status Reason Start Date Expiration Date Visits Requ ested Visits Authorized [id number] Closed 11/02/2020 11/02/2021 1 1 Encounter Details Date Type Department Care Team Description 11/10/2020 Hospital Division of Levi Curiel Ac rae Encounter Gastroenterology in Ernesto Sifuentes (HCC) Davis Perdomo M.D. [address] [place] [address] [place], [place] [phone] Social History Tobacco Use Types Packs/Day Years [...] How often do you attend taoist or taoist services? Never 01/15/2021 Do you [...] Recorded Male 08/18/2021 2:55 PM PUBLIC HEALTH PHYSICIAN documented as of this encounter Last Filed Vital Signs Vital Sign Reading Time Taken Comments Blood Pressure 94/73 11/10/2020 7:20 AM PUBLIC HEALTH PHYSICIAN Pulse 84 11/10/2020 7:20 AM PUBLIC HEALTH PHYSICIAN Temperature 36.3 ??C (97.3 ??F) 11/10/2020 7:13 AM PUBLIC HEALTH PHYSICIAN Respiratory Rate 17 11/10/2020 7:20 AM PUBLIC HEALTH PHYSICIAN Oxygen Saturation 100% 11/10/2020 7:20 AM PUBLIC HEALTH PHYSICIAN Inhaled Oxygen Concentration - - Weight 66.6 kg (146 lb 13.2 oz) 11/10/2020 7:13 AM PUBLIC HEALTH PHYSICIAN Height - - Body Mass Index 20.62 10/29/2020 12:51 PM PUBLIC HEALTH PHYSICIAN documented in this encounter Medications at Time [...] Gomez AP RN, C.N.P., M.S. [address] [place] [address] [phone] (Wo rk) 06/22/2022 Infusion Oncology HartgersMaria Del Rosario APRN, C.N .Pamela., M.S. [address] [place], [place] [phone] (Mj godoy) 06/29/2022 [facility] RN, C.N.Pamela., M.S. [address] [place], [place] [phone] (Mj godoy) 06/29/2022 [facility] APRN, Remy.N .Pamela., M.S. [address] [place], [place] [phone] (Mj godoy) documented as of this encounter Procedures Procedure Name Priority Date/Time Associated Diagnosis Comme nts UPPER EUS Routine 11/10/2020 8:11 AM Pancreatitis Acute Res ults for this PUBLIC HEALTH PHYSICIAN (HCC) procedure are i n the results section. ENDOSCOPIC Routine 11/10/2020 8:11 AM Pancreatitis Acute ULTRASOUND (EUS) PUBLIC HEALTH PHYSICIAN (HCC) documented in this encounter Results Upper EUS (11/10/2020 8:11 AM PUBLIC HEALTH PHYSICIAN) Specimen (Source) Anatomical Collection Method Collection Time Re ceived Time Location / / Volume Laterality 11/10/2020 8:11 AM PUBLIC HEALTH PHYSICIAN Impressions [facility] - 11/10/2020 10:15 AM PUBLIC HEALTH PHYSICIAN Post-op Diagnoses: ? - Normal esophagus. ? - Normal examined duodenum. ? - Necrosectomy was performed as a marcus. ? - The previously placed lumen opp osing metal stent had spontaneously ? migrated out of the tract. ? - Removal of one 7 Fr plastic jai ble-pigtail stent and replacement with ? three 7Fr plastic double-pigtail stents as above (10 cm, 12 cm, and 20 ? cm in length) Narrative [facility] - 11/10/2020 10:15 AM PUBLIC HEALTH PHYSICIAN Gonda 2 GI Patient Name: Adam Campbell Date of : 1965 Age: 55 Gender: Male Procedure Date: 11/10/2020 Procedure: ? Upper EU S Providers: ? Wally ferrell MD Referring Provider: ?Ernesto link MD Pre-op Diagnoses: ?Abnormal ab dominal/pelvic CT scan, Pancreatic ? nec rosis, For necrosectomy Recommendation: ? - Patient has a contact number av ailable for emergencies. The signs and ? symptoms of potential delayed com plications were discussed with the ? patient. Return to normal activit ies tomorrow. Written discharge ? instructions were provided to the patient. ? - Resume previous diet. ? - Observe patient's clinical cour se. Consider outpatient antibiotics ? given the presence of purulent ma terial (IV levofloxacin given today). ? - Return to referring physician obie arriaga previously scheduled. ? - Perform CT scan (computed tomog agapito) of the abdomen with contrast in ? 2 weeks with subsequent repeat pr ocedure the following day. Please order ? as an ERCP. Findings: ? ENDOSCOPIC FINDING: : ? The examined esophagus was normal . ? The examined duodenum was normal. ? Multiple previously placed plasti c double pigtail cystgastrostomy stents ? (3) were found in the gastric bod y. Previously placed lumen opposing ? metal stent was no longer in the stomach corresponding with recent ? imaging demonstrating that it had migrated into the colon. Purulent ? material (pus) was emanating from the cyst gastrostomy tract. The cyst ? gastrostomy tract was then cannul ated with a balloon catheter and a ? 0.035 jag wire. Cystogram was obt ained demonstrating moderate solid ? debris with multiple finger-like projections down into the pelvis. There ? were 2 apparent areas with sponta neous visualization to the colon. A 7 ? Croatian by 20 cm ureteral plastic double-pigtail stent was placed into ? the collection. ? Subsequently, one of the older 7 Croatian by 20 cm double pigtail stent ? was removed from the cystgastrost chasity with a rat-toothed forceps. The ? cyst was partially filled with ne crotic tissue. Necrosectomy was ? performed with a 8.5 mm balloon a nd 11.5 mm balloon. Fair amount of ? solid necrotic debris was removed . Two additional 7 Croatian double ? pigtail plastic stents (one 10 cm length and one 12 cm length) were ? placed into the cavity. Procedural Details: ? The patient was seen, [...] ? the mouth, and advanced to the th ird part of duodenum. The [id number] ? Upper Endoscope was introduced th rough the mouth, and advanced to the ? third part of duodenum. The upper EUS was accomplished without ? difficulty. The patient tolerated the procedure well. Complications: ? No immedia te complications. Estimated Blood Loss: ?None. Attending Participation: I personally pe rformed the entire procedure. Wally Alcala MD 11/10/2020 10:15:23 AM This report has been signed electronical ly. Number of Addenda: 0 Note Initiated On: 11/10/2020 8:11 AM Ernesto Curiel M.D. GI PROCEDURE ORDERABLES Performing Organization Address City/State/ZIP Code Phon e Number SALES PROVATION NA documented in this encounter Visit Diagnoses Diagnosis Pancreatitis Acute (HCC) documented in this encounter Administered Medications Inactive Administered Medications - up to 3 most recent administrations Medication Order MAR Action Action Date Dose Rate Site lactated ringers Continued from OR 11/10/2020 10:10 AM 20 mL/hr 20 mL/hr 20 mL/hr, intravenous, PUBLIC HEALTH PHYSICIAN Continuous, Starting on Mon11/10/20 at 1000, PACU & Post-Op documented in this encounter Care Teams Vendette Relationship Specialty Start Date End Date Elsewhere, Pcp PCP - General Family Medicine 08/12/20 documented as of this encounter
--- OUTSIDE RECORDS SUMMARY | 2022-06-18 16:19 | XMS_ITS | Encounter Summary ---
:1965 Author Organization [facility] Address [address] [place] [address] Care Team Providers Name Role Phone Elsewhere, Pcp Primary Care Provider Unavailable Encounter Details Date Type Department Care Team Description 11/03/2020 Clinical Communication Department of Oncology Deborah Murray, in [facility] elke M.B.B.S. [address] [facility] [address] [place] [address] [phone] Social History Tobacco Use Types Packs/Day Years [...] How often do you attend shinto or alevism services? Never 01/15/2021 Do you [...] at Date Recorded Male 08/18/2021 2:55 PM WHEAT INSPECTOR documented as of this encounter Plan of Treatment Upcoming Encounters Date Type Specialty Care Team Description 06/22/2022 Lab Laboratory Medicine Maria Del Rosario Gomez AP RN, C.N.P., M.S. [address] [place] [phone] (Wo rk) 06/22/2022 Infusion Oncology Maria Del Rosario Gomez APRN, C.N .P., M.S. [address] [place] [phone] (Wo rk) 06/29/2022 Lab Laboratory Medicine Maria Del Rosario Gomez AP RN, C.N.P., M.S. [address] [place] [phone] (Wo rk) 06/29/2022 Infusion Oncology Maria Del Rosario Gomez APRN, C.N .P., M.S. [address] [place] [phone] (Wo rk) documented as of this encounter Visit Diagnoses Not on filedocumented in this encounter Care Teams Product Marketing Coordinator Relationship Specialty Start Date End Date Elsewhere, Pcp PCP - General Family Medicine 08/12/20 documented as of this encounter
--- OUTSIDE RECORDS SUMMARY | 2022-06-18 16:19 | XMS_ITS | Encounter Summary ---
:1965 Author Organization [facility] Address [address] [place] [address] Care Team Providers Name Role Phone Elsewhere, Pcp Primary Care Provider Unavailable Reason for Referral MRI/CAT/PET Scan (Routine) - Closed Specialty Diagnoses / Procedures Referred By Contact Refer red To Contact Radiology Diagnoses Pancreatitis Acute (HCC) Ernesto Curiel M.D. [facility] Procedures CT Abdomen Pelvis with IV Contrast [address] [place], [place] [address] Referral ID Status Reason Start Date Expiration Date Visits Requ ested Visits Authorized [id number] Closed 11/02/2020 11/02/2021 1 1 K SERVICE TECHNICIAN Outpatient (Routine) - Closed Specialty Diagnoses / Procedures Referred By Contact Refer red To Contact Diagnoses Pancreatitis Acute (HCC) Ernesto Curiel M.D. [facility] Procedures EUS [address] [place] [address] Referral ID Status Reason Start Date Expiration Date Visits Requ ested Visits Authorized [id number] Closed 11/02/2020 11/02/2021 1 1 K SERVICE TECHNICIAN Encounter Details Date Type Department Care Team Description 11/02/2020 Orders Only Division of Ernesto Curiel Pancreatitis Acute Gastroenterology ej Sifuentes M.D. (HCC) (Primary Dx) [place], [place] [address] [facility] [address] [place] [address] [phone] Social History Tobacco Use Types Packs/Day Years [...] How often do you attend christian or christianity services? Never 01/15/2021 Do you [...] at Date Recorded Male 08/18/2021 2:55 PM QUICK SERVICE TECHNICIAN documented as of this encounter Plan of Treatment Upcoming Encounters Date Type Specialty Care Team Description 06/22/2022 Lab Laboratory Medicine Maria Del Rosario Gomez AP RN, C.N.P., M.S. [address] [place] [phone] (Mj godoy) 06/22/2022 Infusion Oncology Maria Del Rosario Gomez APRN, C.N .P., M.S. [address] [place] [phone] (Mj godoy) 06/29/2022 Lab Laboratory Medicine Maria Del Rosario Gomez AP RN, C.N.P., M.S. [address] [place] [phone] (Mj godoy) 06/29/2022 Infusion Oncology Maria Del Rosario Gomez APRN, C.N .P., M.S. [address] [place], [place] [phone] (Wo rk) documented as of this encounter Results CT Abdomen Pelvis with IV Contrast (11/05/2020 3:51 PM QUICK SERVICE TECHNICIAN) Anatomical Region Laterality Modality Abdomen, Pelvis, Abdominal RST LOS, N/A Comp uted Tomography, Computed Abdominal ARZ LOS, Abdominal FLA LOS Dileep ography Specimen (Source) Anatomical Collection Method Collection Time Re ceived Time Location / / Volume Laterality 11/05/2020 4:00 PM QUICK SERVICE TECHNICIAN Impressions 11/05/2020 4:27 PM QUICK SERVICE TECHNICIAN Loose Axios stent in the colon. Remainder not significantly changed. See findings for details. Narrative 11/05/2020 4:27 PM QUICK SERVICE TECHNICIAN EXAM: ??CT ABDOMEN PELVIS WITH IV CONTRAST [...] significantly changed. See findings for details. Ernesto WONG CT PROCEDURES documented in this encounter Visit Diagnoses Diagnosis Pancreatitis Acute (HCC) - Primary Pancreatitis Acute (HCC) documented in this encounter Additional Health Concerns Infection Onset Date Last Indicated Resolved Time COVID19 Pending 11/05/2020 11/05/2020 11/06/2020 2:05 AM QUICK SERVICE TECHNICIAN documented as of this encounter Care Teams Insurance Collector Relationship Specialty Start Date End Date Elsewhere, Pcp PCP - General Family Medicine 08/12/20 documented as of this encounter
--- OUTSIDE RECORDS SUMMARY | 2022-06-18 16:19 | XMS_ITS | Encounter Summary ---
:1965 Author Organization [facility] Address [address] [place] [address] Care Team Providers Name Role Phone Elsewhere, Pcp Primary Care Provider Unavailable Reason for Visit Reason Comments OPAT Care Coordination Encounter Details Date Type Department Care Team Description 11/04/2020 Clinical Communication Section of Irene Jimenez (Care Infectious Diseases M, R.N. Coordination) in [place] [address] [place], [place] [address] [facility] [address] [place], [place] [phone] (Work) [phone] Social History Tobacco Use Types Packs/Day Years [...] How often do you attend holiness or cheondoism services? Never 01/15/2021 Do you [...] at Date Recorded Male 08/18/2021 2:55 PM POST HOLE DIGGER documented as of this encounter Miscellaneous Notes Telephone Encounter - Lola Luz R.N. - 11/09/2020 3:14 PM POST HOLE DIGGER In review of [facility], it appears that last week's 11/05/20 lab and PICC site care appointments were cancelled. I also see that he had an implanted port placed on 11/05/20, but I do not find documentation of the PICC line being removed. I spoke with pharmacist Conor at [facility], who does not know why port was placed or whether PICC was removed. I left a voicemail message for the patient's home care nurse ([facility], phone [phone]); home care nurse Marcelina called back and stated they are no longer seeing this patient. Labs are now scheduled for 11/11/20. I left a voicemail for the patient. When he calls back, we need to check whether he is using the PICC or the port, and if PICC is still in place whether he has had site care done. HOLE DIGGER Telephone Encounter - Irene Jimenez R.N. - 11/04/2020 2:27 PM CST Daniel calls from [facility]. She asks if labs can be ordered tomorrow for patient and also on 11/11 prior to his ID appointment. Daniel also requests PICC site care be done tomorrow. Orders were placed and appointment desk to call patient. HOLE DIGGER documented in this encounter Plan of Treatment Upcoming Encounters Date Type Specialty Care Team Description 06/22/2022 Lab Laboratory Medicine Maria Del Rosario Gomez AP RN, C.N.P., M.S. [address] [place] [phone] (Wo rk) 06/22/2022 Infusion Oncology Maria Del Rosario Gomez APRN, C.N .P., M.S. [address] [place] [phone] (Wo rk) 06/29/2022 Lab Laboratory Medicine Maria Del Rosario Gomez AP RN, C.N.P., M.S. [address] [place], [place] [phone] (Wo rk) 06/29/2022 Infusion Oncology Maria Del Rosario Gomez APRN, C.N .P., M.S. [address] [place], [place] [phone] (Wo rk) documented as of this encounter Results Creatinine with Estimated GFR (11/11/2020 7:53 AM POST HOLE DIGGER) P athologist Signature Creatinine 0.89 0.74 - 11/11/2020 DTL 1.35 mg/dL 8:38 AM POST HOLE DIGGER eGFR-Non >90 >=60 11/11/2020 DTL Black/ mL/min/BSA 8:38 AM POST HOLE DIGGER Indian Comment: ----ADDITIONAL INFORMATION---- Estimated GFR calculated using the 2009 CKD_EPI creatinine equation. eGFR-Black/ >90 >=60 mL/min/BSA 2020 8:38 AM POST HOLE DIGGER DTL Comment: ----ADDITIONAL INFORMATION---- Estimated GFR calculated using the 2009 CKD_EPI creatinine equation. Specimen Anatomical Collection Method Collection Time Receive d Time (Source) Location / / Volume Laterality Blood (Blood, 11/11/2020 7:53 AM 11/12/19 8:02 Venous) POST HOLE DIGGER AM POST HOLE DIGGER Gina Aranda P.A.-C. LAB BLOOD ADD-ON Performing Organization Address City/State/ZIP Code Phon e Number [facility] - [address] [place] [phone] [facility] [place] [address] [facility] 200 [facility] (ABNORMAL) CBC with Differential, Blood (11/11/2020 7:53 AM POST HOLE DIGGER) Patholo gist Method Time Signature Hemoglobin 8.8 (L) 13.2 - 11/11/2020 DTL 16.6 g/dL 8:19 AM POST HOLE DIGGER Hematocrit 29.0 (L) 38.3 - 11/11/2020 DTL 48.6 % 8:19 AM POST HOLE DIGGER Erythrocytes 3.65 (L) 4.35 - 11/11/2020 DTL 5.65 8:19 AM POST HOLE DIGGER x10(12)/L MCV 79.5 78.2 - 11/11/2020 DTL 97.9 fL 8:19 AM POST HOLE DIGGER RBC Distrib Width 17.8 (H) 11.8 - 11/11/2020 DTL 14.5 % 8:19 AM POST HOLE DIGGER Platelet Count 379 (H) 135 - 317 11/11/2020 DTL x10(9)/L 8:19 AM POST HOLE DIGGER Leukocytes 9.2 3.4 - 9.6 11/11/2020 DTL x10(9)/L 8:19 AM POST HOLE DIGGER Neutrophils 7.13 (H) 1.56 - 11/11/2020 DTL 6.45 8:19 AM POST HOLE DIGGER x10(9)/L Lymphocytes 0.85 (L) 0.95 - 11/11/2020 DTL 3.07 8:19 AM POST HOLE DIGGER x10(9)/L Monocytes 1.06 (H) 0.26 - 11/11/2020 DTL 0.81 8:19 AM POST HOLE DIGGER x10(9)/L Eosinophils 0.06 0.03 - 11/11/2020 DTL 0.48 8:19 AM POST HOLE DIGGER x10(9)/L Basophils 0.05 0.01 - 11/11/2020 DTL 0.08 8:19 AM POST HOLE DIGGER x10(9)/L Specimen Anatomical Collection Method Collection Time Receive d Time (Source) Location / / Volume Laterality Blood (Blood, 11/11/2020 7:53 AM 11/12/19 21 8:03 Venous) POST HOLE DIGGER AM POST HOLE DIGGER Gina Aranda P.A.-C. LAB BLOOD ADD-ON Performing Organization Address City/State/ZIP Code Phon e Number [facility] - [address] [place], [place] [phone] [facility] [place] [address] [facility] [address] ALT (Alanine Aminotransferase) (11/11/2020 7:53 AM POST HOLE DIGGER) Patholo gist Method Time Signature Alanine 29 7 - 55 11/11/2020 DTL Aminotransferase U/L 8:38 AM POST HOLE DIGGER (ALT), S Specimen Anatomical Collection Method Collection Time Receive d Time (Source) Location / / Volume Laterality Blood (Blood, 11/11/2020 7:53 AM 11/12/19 21 8:02 Venous) POST HOLE DIGGER AM POST HOLE DIGGER Gina Aranda P.A.-C. LAB BLOOD ADD-ON Performing Organization Address City/State/ZIP Code Phon e Number [facility] - [address] [place], [place] [address] [facility] [place] [address] [facility] [address] documented in this encounter Visit Diagnoses Diagnosis Process Specialist Antibiotic Treatment - Primary documented in this encounter Additional Health Concerns Infection Onset Date Last Indicated Resolved Time COVID19 Pending 11/05/2020 11/05/2020 11/06/2020 2:05 AM POST HOLE DIGGER documented as of this encounter Care Teams Board Certified Arts Therapist Relationship Specialty Start Date End Date Elsewhere, Pcp PCP - General Family Medicine 08/12/20 documented as of this encounter
--- OUTSIDE RECORDS SUMMARY | 2022-06-18 16:19 | XMS_ITS | Encounter Summary ---
:1965 Author Organization [facility] Address [address] [place] [address] Care Team Providers Name Role Phone Elsewhere, Pcp Primary Care Provider Unavailable Reason for Referral Outpatient (Routine) - Closed Specialty Diagnoses / Procedures Referred By Contact Refer red To Contact Radiology Diagnoses Malignant Neoplasm Of Pancreas (HCC) Deborah Murray M.B.B.S. [facility] Procedures IR Implanted Vascular Access Device Placement [address] [place] [address] Referral ID Status Reason Start Date Expiration Date Visits Requ ested Visits Authorized [id number] Closed 10/16/2020 10/16/2021 1 1 SOFTWARE DEVELOPMENT ENGINEER Reason for Visit Auth/Cert Specialty Diagnoses / Procedures Referred By Contact Refer red To Contact Diagnoses Malignant Neoplasm Of Pancreas (HCC) Procedures IR IMPLANTED VASCULAR ACCESS DEVICE PLACEMENT Referral ID Status Reason Start Date Expiration Date Visits Requ ested Visits Authorized [id number] 1 1 Encounter Details Date Type Department Care Team Description 11/05/2020 Hospital Encounter Department of Deborah Murray M.B.B.S. [address] [place] [id number] Malignant Neoplasm Radiology in Reji Bales M.D. [address] [place] [phone] Of Pancreas (HCC) [place], [place] Jaiden Wolf M.D. [address] [place] [address] Social History Tobacco Use Types Packs/Day [...] How often do you attend yarsanism or pentecostal services? 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 ENGINEER documented as of this encounter Last Filed Vital Signs Vital Sign Reading Time Taken Comments Blood Pressure 95/69 11/05/2020 1:20 PM LEAD SOFTWARE DEVELOPMENT ENGINEER Pulse 84 11/05/2020 1:20 PM LEAD SOFTWARE DEVELOPMENT ENGINEER Temperature 36.7 ??C (98 ??F) 11/05/2020 1:20 PM LEAD SOFTWARE DEVELOPMENT ENGINEER Respiratory Rate 10 11/05/2020 1:20 PM LEAD SOFTWARE DEVELOPMENT ENGINEER Oxygen Saturation 94% 11/05/2020 1:20 PM LEAD SOFTWARE DEVELOPMENT ENGINEER Inhaled Oxygen Concentration - - Weight 68.2 kg (150 lb 5.7 oz) 11/05/2020 10:32 AM LEAD SOFTWARE DEVELOPMENT ENGINEER Height - - Body Mass Index 21.12 10/29/2020 12:51 PM LEAD SOFTWARE DEVELOPMENT ENGINEER documented in this encounter Discharge Instructions AttachmentsThe following attachments cannot be sent through Care Everywhere. Implantable Vascular Access Device (IVAD) (Polish)documented in this encounter Medications at Time of [...] with PICC documented as of this encounter Procedure Notes Jaiden Wolf M.D. - 11/05/2020 1:04 PM CST PATIENT DISPOSITION Return to Outpatient Unit for recovery. Discharge patient when discharge criteria met. POST-PROCEDURE DIAGNOSIS Pancreatic cancer PROCEDURE PERFORMED AND DESCRIPTION Port placement. Catheter tip is near the superior cavoatrial junction. Ready for use. PROCEDURE DETAILS See Radiology Report SPECIMENS REMOVED None FINDINGS See report PRIMARY PROCEDURALIST Amairani Wolf COMPLICATIONS None. DRAINS None. IMPLANTS Reference implant document. ANESTHESIA Moderate Sedation. FLUIDS See MAR ESTIMATED BLOOD LOSS <5ml CURRENT MEDICATIONS No Medication Changes FOLLOW-UP LETTER None. MAY RETURN TO WORK Not applicable PATIENT INSTRUCTIONS No return appointment SOFTWARE DEVELOPMENT ENGINEER documented in this encounter Plan of Treatment Upcoming Encounters Date Type Specialty Care Team Description 06/22/2022 Lab Laboratory Medicine Maria Del Rosario Gomez AP RN, C.N.P., M.S. [address] [place] [phone] ([place] god[place]) 06/22/2022 Infusion Oncology Maria Del Rosario Gomez APRN, C.N .P., M.S. [address] [place] [phone] ([place] god[place]) 06/29/2022 Lab Laboratory Medicine Maria Del Rosario Gomez AP RN, C.N.P., M.S. [address] [place] [phone] ([place] god[place]) 06/29/2022 Infusion Oncology Maria Del Rosario Gomez APRN, C.N .P., M.S. [address] [place] [phone] ([place] godoy) documented as of this encounter Procedures Procedure Name Priority Date/Time Associated Comments Diagnosis IR IMPLANTED RAD - Routine 11/05/2020 12:54 Malignant Results fo r this VASCULAR ACCESS (most inpatients PM LEAD SOFTWARE DEVELOPMENT ENGINEER Neoplasm Of procedur e are in DEVICE PLACEMENT and all Pancreas (HCC) the resul ts outpatients) section. ADULT OXYGEN Routine 11/05/2020 10:21 THERAPY AM LEAD SOFTWARE DEVELOPMENT ENGINEER documented in this encounter Results IR Implanted Vascular Access Device Placement (11/05/2020 12:54 PM LEAD SOFTWARE DEVELOPMENT ENGINEER) Anatomical Region Laterality Modality Chest, Pelvis, Abdomen, Vascular Interventional RST LOS, N/A X-Ray Angiography Vascular Interventional ARZ LOS, Vascular Interventional FLA LOS Specimen (Source) Anatomical Collection Method Collection Time Re ceived Time Location / / Volume Laterality 11/05/2020 1:26 PM LEAD SOFTWARE DEVELOPMENT ENGINEER Impressions 11/05/2020 2:49 PM LEAD SOFTWARE DEVELOPMENT ENGINEER Placement of a right internal jugular 8 Turk[place] single-lumen power port. Ready for use. EP Narrative 11/05/2020 2:49 PM LEAD SOFTWARE DEVELOPMENT ENGINEER EXAM: IR IMPLANTED VASCULAR ACCESS DEVICE PLACEMENT CLINICAL HISTORY: 55-year-old male with pancreatic cancer and planned chemotherapy. Port placement has been re quested. TECHNIQUE: The right neck and chest were prepped and draped in sterile fashion. Using ultrasound guidance to access vess el, patency was shown and after anesthetizing the skin with lidocaine th e right internal jugular vein was punctured successfully from a lateral ap proach just above the collar bone. A permanent image was created and stored. The wire was passed centrally and a micropuncture sheath was placed. The wir e was removed and the sheath was locked with saline. Attention was then turned t o creation of a port pocket. After 1% lidocaine was administered for local ane sthesia, a transverse incision was made below the right clavicle and a pocket wa s created using blunt dissection. The port was secured to the pocket with a 2- 0 Prolene suture on either side of the catheter attachment site. An 8F single l umen PowerPort catheter was tunneled from the pocket up to a small incision a t the puncture site where it was advanced down the SVC through a peel-nessa y sheath. The back end of the catheter was cut to length and secured to the bod y of the port with the locking ring. The port aspirated and flushed easily and wa s heparinized. Pocket was closed with a deep layer of interrupted 3-0 Vicryl the n subcuticular 4-0 Vicryl. Puncture site was closed with subcuticular 4-0 Vicryl. Steri-Strips and Tegaderm dressing applied. No immediate complication. For placement of this central venous acc ess, we followed catheter checklist and a standardized protocol. The position of the catheter tip was confirmed under fluoroscopic guidance, and a final image of the catheter position was obtained. Ready for use. CT injectable PowerPort was placed. This device can be power injected up to a pressure of 300 PSI and flow rate of 5 m L/sec. Using ultrasound guidance to access vess el, patency was shown and after anesthetizing the skin with lidocaine th e right internal jugular vein was punctured successfully. A permanent imag e was created and stored. PREPROCEDURE: Patient seen, evaluated, h istory reviewed, and approved for sedation. Airway, heart, and lung exam s atisfactory for sedation. Discussed risks, benefits, alternatives for proced ure, and/or sedation. The roles and responsibilities of care team members, r esidents, and fellows were discussed. Patient understands information and ques tions answered. Informed consent obtained from the patient. Immediately p rior to starting the procedure, in the presence of the assisting personnel, a p rocedural pause was conducted to verify correct patient identity and verificatio n of procedure to be performed, and as applicable, correct side and site, corre ct patient position, availability of implants, special equipment, or special requirements, and all image and specimen identification data. INTRAPROCEDURE: Moderate sedation was ad ministered by sedation nurse under my supervision. The patient was continuousl y monitored with real time oxygen saturation, heart rate, ECG rhythm strip and blood pressure throughout administration of the sedation and perfo rmance of the procedure. The total intra-procedural sedation time was: 82 m inutes. Procedure Note Reji Bales M.D. - 11/05/2020Fo rmatting of this note might be different from the original. EXAM: IR IMPLANTED VASCULAR ACCESS DEVIC E PLACEMENT CLINICAL HISTORY: 55-year-old male with pancreatic cancer and planned chemotherapy. Port placement has been re quested. TECHNIQUE: The right neck and chest were prepped and draped in sterile fashion. Using ultrasound guidance to access vess el, patency was shown and after anesthetizing the skin with lidocaine th e right internal jugular vein was punctured successfully from a lateral ap proach just above the collar bone. A permanent image was created and stored. The wire was passed centrally and a micropuncture sheath was placed. The wir e was removed and the sheath was locked with saline. Attention was then turned t o creation of a port pocket. After 1% lidocaine was administered for local ane sthesia, a transverse incision was made below the right clavicle and a pocket wa s created using blunt dissection. The port was secured to the pocket with a 2- 0 Prolene suture on either side of the catheter attachment site. An 8F single l umen PowerPort catheter was tunneled from the pocket up to a small incision a t the puncture site where it was advanced down the SVC through a peel-nessa y sheath. The back end of the catheter was cut to length and secured to the bod y of the port with the locking ring. The port aspirated and flushed easily and wa s heparinized. Pocket was closed with a deep layer of interrupted 3-0 Vicryl the n subcuticular 4-0 Vicryl. Puncture site was closed with subcuticular 4-0 Vicryl. Steri-Strips and Tegaderm dressing applied. No immediate complication. For placement of this central venous acc ess, we followed catheter checklist and a standardized protocol. The position of the catheter tip was confirmed under fluoroscopic guidance, and a final image of the catheter position was obtained. Ready for use. CT injectable PowerPort was placed. This device can be power injected up to a pressure of 300 PSI and flow rate of 5 m L/sec. Using ultrasound guidance to access vess el, patency was shown and after anesthetizing the skin with lidocaine th e right internal jugular vein was punctured successfully. A permanent imag e was created and stored. PREPROCEDURE: Patient seen, evaluated, h istory reviewed, and approved for sedation. Airway, heart, and lung exam s atisfactory for sedation. Discussed risks, benefits, alternatives for proced ure, and/or sedation. The roles and responsibilities of care team members, r esidents, and fellows were discussed. Patient understands information and ques tions answered. Informed consent obtained from the patient. Immediately p rior to starting the procedure, in the presence of the assisting personnel, a p rocedural pause was conducted to verify correct patient identity and verificatio n of procedure to be performed, and as applicable, correct side and site, corre ct patient position, availability of implants, special equipment, or special requirements, and all image and specimen identification data. INTRAPROCEDURE: Moderate sedation was ad ministered by sedation nurse under my supervision. The patient was continuousl y monitored with real time oxygen saturation, heart rate, ECG rhythm strip and blood pressure throughout administration of the sedation and perfo rmance of the procedure. The total intra-procedural sedation time was: 82 m inutes. IMPRESSION: Placement of a right internal jugular 8 Turkmen single-lumen power port. Ready for use. EP Deborah WONG IR PROCEDURES documented in this encounter Visit Diagnoses Diagnosis Malignant Neoplasm Of Pancreas (HCC) documented in this encounter Administered Medications Inactive Administered Medications - up to 3 most recent administrations Medication Order MAR Action Action Date Dose Rate Site fentaNYL injection (SUBLIMAZE) Given 11/05/2020 12:53 PM LEAD SOFTWARE DEVELOPMENT ENGINEER 25 mcg Code/trauma/sedation medication, Starting on Sandra 11/05/20 at 1253 fentaNYL injection (SUBLIMAZE) Given 11/05/2020 1:07 PM LEAD SOFTWARE DEVELOPMENT ENGINEER 25 mcg Code/trauma/sedation medication, Starting on Sandra 11/05/20 at 1307 fentaNYL injection 25 mcg (SUBLIMAZE) Given 11/05/2020 12:17 PM LEAD SOFTWARE DEVELOPMENT ENGINEER 25 mcg 25 mcg, intravenous, Every 2 min PRN, sedation, or pain before and during sedation procedure, Starting on Sandra 11/05/20 at 1021, Intraprocedure (RAD), Administer over 1 minute immediately prior to the procedure. May repeat every 2 minutes to a maximum of 200 mcg, until pain score of 3 or less, or until the patient meets the pain comfort goal. Do not give if respiratory rate is less than 8 breaths/minute Given 11/05/2020 12:12 PM LEAD SOFTWARE DEVELOPMENT ENGINEER 25 mcg Given 11/05/2020 12:07 PM LEAD SOFTWARE DEVELOPMENT ENGINEER 25 mcg flumazeniL injection 0.2 mg (ROMAZICON) 0.2 mg, intravenous, Once as needed, rev ersal, Starting on Sandra 11/05/20 at 1021, For 1 dose, Intraprocedure (RAD), Administer once if patient has a RASS score of -4, -5 and has a respiratory rate less than 8 breaths/minute. heparin flush Given 11/05/2020 12:36 PM LEAD SOFTWARE DEVELOPMENT ENGINEER 900 Units Code/trauma/sedation medication, Starting on Sandra 11/05/20 at 1236 lidocaine 10 mg/mL (1 %) injection (XYLO ASTRID) Given 11/05/2020 12:50 PM LEAD SOFTWARE DEVELOPMENT ENGINEER 10 mL Code/trauma/sedation medication, Starting on Sandra 11/05/20 at 1250 midazolam (PF) injection (VERSED) Given 11/05/2020 12:30 PM LEAD SOFTWARE DEVELOPMENT ENGINEER 0.5 mg Code/trauma/sedation medication, Starting on Sandra 11/05/20 at 1230 midazolam (PF) injection (VERSED) Given 11/05/2020 12:40 PM LEAD SOFTWARE DEVELOPMENT ENGINEER 0.5 mg Code/trauma/sedation medication, Starting on Sandra 11/05/20 at 1240 midazolam (PF) injection (VERSED) Given 11/05/2020 12:54 PM LEAD SOFTWARE DEVELOPMENT ENGINEER 0.5 mg Code/trauma/sedation medication, Starting on Sandra 11/05/20 at 1254 midazolam (PF) injection (VERSED) Given 11/05/2020 1:07 PM LEAD SOFTWARE DEVELOPMENT ENGINEER 0.5 mg Code/trauma/sedation medication, Starting on Sandra 11/05/20 at 1307 midazolam (PF) injection 0.25 mg (VERSED ) 0.25 mg, intravenous, Every 2 min PRN, s edation, RASS -2, Starting on Sandra 11/05/20 at 1021, Intraprocedure (RAD), May repea t every 2 minutes to a maximum of 5 mg. Do not give if respiratory rate is less than 8 breaths/mi nute. midazolam (PF) injection 0.5 mg (VERSED) 0.5 mg, intravenous, Once as needed, sed ation, Starting on Sandra 11/05/20 at 1021, For 1 dose, Intraprocedure (RAD) midazolam (PF) injection 0.5 mg (VERSED) Given 11/05/2020 12:17 PM LEAD SOFTWARE DEVELOPMENT ENGINEER 0.5 mg 0.5 mg, intravenous, Every 2 min PRN, sedation, RASS -1, Starting on Sandra 11/05/20 at 1021, Intraprocedure (RAD), May repeat every 2 minutes for a maximum of 5 mg. Do not give if respiratory rate is less than 8 breaths/minute. Given 11/05/2020 12:12 PM LEAD SOFTWARE DEVELOPMENT ENGINEER 0.5 mg Given 11/05/2020 12:07 PM LEAD SOFTWARE DEVELOPMENT ENGINEER 0.5 mg midazolam (PF) injection 1 mg (VERSED) Given 11/05/2020 11:58 AM LEAD SOFTWARE DEVELOPMENT ENGINEER 1 mg 1 mg, intravenous, Every 2 min PRN, sedation, RASS 0, Starting on Sandra 11/05/20 at 1021, Intraprocedure (RAD), May repeat every 2 minutes for a maximum of 5 mg. Do not give if respiratory rate is less than 8 breaths/minute. Given 11/05/2020 11:48 AM LEAD SOFTWARE DEVELOPMENT ENGINEER 1 mg NaCl 0.9% infusion 20 mL/hr, intravenous, Once as needed, t o keep vein open, Starting on Sandra 11/05/20 at 1021, For 1 dose, Intraprocedure (RAD) naloxone injection 0.2 mg (NARCAN) 0.2 mg, intravenous, Once as needed, respiratory depre ssion, Starting on Sandra 11/05/20 at 1021, For 1 dose, Intraproced ure (RAD), Administer once if patient has a RASS score of -4, -5 and has a respiratory rate less t [place] 8 breaths/minute. sodium chloride 0.9 % injection 10 mL 10 mL, intravenous, As needed, line care, Starting on Sandra 11/05/20 at 1021, Intraprocedure (RAD), Peripheral Intrave nous Catheter and Rapid Infusion Catheter, prior to blood sampling, post blood transfusion or pos t blood sampling sodium chloride 0.9 % injection 3 mL 3 mL, intravenous, As needed, line care, Starting on T 11/05/20 at 1021, Intraprocedure (RAD), Prior to and following infusion and between multiple consecutive infusions: sodium chloride 0.9 % injection sodium chloride 0.9 % injection 3 mL 3 mL, intravenous, Every 12 hours scheduled, First dos e on Sandra 11/05/20 at 2100, Intraprocedure (RAD), Peripheral Intrave nous Catheter and Rapid Infusion Catheter, when no infusion to maintain patency documented in this encounter Active and Recently Administered Medications Times are shown in LEAD SOFTWARE DEVELOPMENT ENGINEER. Scheduled Medication Order 11/03/2020 11/04/2020 11/05/2020 sodium chloride 0.9 % injection 3 mL 3 mL, intravenous, Every 12 hours schedu led, First dose on Sandra 11/05/20 at 2100, Intraprocedure (RAD), Peripheral Intravenous Catheter and Rapid Infusion Catheter, when no infusion to maintain patency PRN Medication Order 11/03/2020 11/04/2020 11/05/2020 fentaNYL injection (SUBLIMAZE) (CANCELED) 2576 (Given - Provider: Raymond Escobedo R.N.) Code/trauma/sedation medication, Starting Sandar 11/05/20 at 1253 fentaNYL injection (SUBLIMAZE) (CANCELED) 1307 (Given - Provider: Raymond Escobedo R.N.) Code/trauma/sedation medication, Starting Sandra 11/05/20 at 1307 fentaNYL injection 25 mcg (SUBLIMAZE) 1148 (Given - Provider: Raymond Escobedo R.N.)1151 (Given - Provider: Raymond Escobedo R.N.)1156 (Given - Provider: Raymond Escobedo R.N.)1157 (Given - Provider: Raymond Escobedo R.N.)1203 (Given - Provid er: Raymond Escobedo R.N.) 25 mcg, intravenous, Every 2 min PRN, se dation, or pain before and during sedation procedure, Starting Sandra 11/05/20 at 1021, Intraprocedure (RAD), Administer over 1 minute immediately prior to the proced 1207 (Given - Provider: Raymond Escobedo R.N.)1212 (Given - Provider: Raymond Escobedo R.N.)1217 (Given - Provider: Raymond Escobedo R.N.)1253 (Canceled Entry - Provider: Raymond Escobedo R.N.) ure. May repeat every 2 minutes to a max imum of 200 mcg, until pain score of 3 or less, or until the patient meets the pain comfort goal. Do not give if respiratory rate is less than 8 breaths/minute flumazeniL injection 0.2 mg (ROMAZICON) 0.2 mg, intravenous, Once as needed, rev ersal, Starting Sandra 11/05/20 at 1021, For 1 dose, Intraprocedure (RAD), Administer once if patient has a RASS score of -4, -5 and has a respiratory rate less than 8 breaths/minute. heparin flush (CANCELED) 1236 (Teresa alexandreen - Provider: Jaiden Wolf M.D.) Code/trauma/sedation medication, Starting Sandra 11/05/20 at 1236 lidocaine 10 mg/mL (1 %) injection (XYLOCAINE) (CANCELED) 1250 (Given - Provider: Reji Bales M.D.) Code/trauma/sedation medication, Starting Sandra 11/05/20 at 1250 midazolam (PF) injection (VERSED) (CANCELED) 1230 (Given - Provider: Raymond Escobedo R.N.) Code/trauma/sedation medication, Starting Sandra 11/05/20 at 1230 midazolam (PF) injection (VERSED) (CANCELED) 1240 (Given - Provider: Jaiden Wolf M.D.) Code/trauma/sedation medication, Starting Sandra 11/05/20 at 1240 midazolam (PF) injection (VERSED) (CANCELED) 1254 (Given - Provider: Raymond Escobedo R.N.) Code/trauma/sedation medication, Starting Sandra 11/05/20 at 1254 midazolam (PF) injection (VERSED) (CANCELED) 1307 (Given - Provider: Raymond Escobedo R.N.) Code/trauma/sedation medication, Starting Sandra 11/05/20 at 1307 midazolam (PF) injection 0.25 mg (VERSED) 0.25 mg, intravenous, Every 2 min PRN, s edation, RASS -2, Starting Sandra 11/05/20 at 1021, Intraprocedure (RAD), May repeat every 2 minutes to a maximum of 5 mg. Do not give if respiratory rate is less than 8 breaths/minute. midazolam (PF) injection 0.5 mg (VERSED) 0.5 mg, intravenous, Once as needed, sed ation, Starting Sandra 11/05/20 at 1021, For 1 dose, Intraprocedure (RAD) midazolam (PF) injection 0.5 mg (VERSED) 1151 (Given - Provider: Raymond Escobedo R.N.)1155 (Given - Provider: Raymond Escobedo R.N.)1202 (Given - Provider: Raymond Escobedo R.N.)1207 (Given - Provider: Raymond Escobedo R.N.)1212 (Given - Provider: Raymond Escobedo R.N.) 0.5 mg, intravenous, Every 2 min PRN, se dation, RASS -1, Starting Sandra 11/05/20 at 1021, Intraprocedure (RAD), May repeat every 2 minutes for a maximum of 5 mg. Do not give if respiratory rate is less than 8 breaths/minute. 1217 (Given - Provider: Raymond Escobedo R.N.)1253 (Canceled Entry - Provider: Raymond Escobedo R.N.) midazolam (PF) injection 1 mg (VERSED) 1148 (Given - Provider: Raymond Escobedo R.N.)1158 (Given - Provider: Raymond Escobedo R.N.) 1 mg, intravenous, Every 2 min PRN, fabien tion, RASS 0, Starting Sandra 11/05/20 at 1021, Intraprocedure (RAD), May repeat every 2 minutes for a maximum of 5 mg. Do not give if respiratory rate is less than 8 breaths/minute. NaCl 0.9% infusion 20 mL/hr, intravenous, at 20 mL/hr, Once as needed, to keep vein open, Starting Sandra 11/05/20 at 1021, For 1 dose, Intraprocedure (RAD) naloxone injection 0.2 mg (NARCAN) 0.2 mg, intravenous, Once as needed, res piratory depression, Starting Sandra 11/05/20 at 1021, For 1 dose, Intraprocedure (RAD), Administer once if patient has a RASS score of -4, -5 and has a respiratory rate less than 8 breaths/minute. sodium chloride 0.9 % injection 10 mL 10 mL, intravenous, As needed, line care , Starting Sandra 11/05/20 at 1021, Intraprocedure (RAD), Peripheral Intravenous Catheter and Rapid Infusion Catheter, prior to blood sampling, post blood transfusion or post blood sampling sodium chloride 0.9 % injection 3 mL 3 mL, intravenous, As needed, line care, Starting Sandra 11/05/20 at 1021, Intraprocedure (RAD), Prior to and following infusion and between multiple consecutive infusions: sodium chloride 0.9 % injection documented in this encounter Care Teams Out Of School Hours Care 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
--- OUTSIDE RECORDS SUMMARY | 2022-06-18 16:19 | XMS_ITS | Encounter Summary ---
:1965 Author Organization [facility] Address [address] [place] [address] Care Team Providers Name Role Phone Elsewhere, Pcp Primary Care Provider Unavailable Encounter Details Date Type Department Care Team Description 10/30/2020 Episode Changes Section of Infectious [facility] in [place], [facility] [address] [place], [place] [address] [facility] [id number] [place] [phone] Social History Tobacco Use Types Packs/Day [...] How often do you attend druze or mormonism services? 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 [address] [place] [address] [phone] (Mj rk) 06/22/2022 [facility] [address] [place] [address] [phone] (Mj rk) 06/29/2022 [facility], C.N.P., M.S. [address] [place] [address] [phone] (Mj rk) 06/29/2022 [facility] C.N .P., M.S. [address] [place] [address] [phone] (Mj rk) documented as of this encounter Visit Diagnoses Not on filedocumented in this encounter Care Teams Flexible Machining System Machinist Relationship Specialty Start Date End Date Elsewhere, Pcp PCP - General Family Medicine 08/12/20 documented as of this encounter
--- OUTSIDE RECORDS SUMMARY | 2022-06-18 16:19 | XMS_ITS | Encounter Summary ---
:1965 Author Organization [facility] Address [address] [place] [address] Care Team Providers Name Role Phone Elsewhere, Pcp Primary Care Provider Unavailable Encounter Details Date Type Department Care Team Description 11/10/2020 Anesthesia Event Division of Tim Ken APRN, CRNA [address] [place] [phone] Gastroenterology in [place] M.D., M.B.O.E. [address] [place] [phone] [place], [place] [address] [place] [phone] Anesthesia Record Procedure Summary Procedure Name Responsible Anesthesia Start Anesthesia Stop Anesthesiologist Time Time ENDOSCOPIC Tim Ken APRN, CRNA 11/10/20 0817 11/10 1011 ULTRASOUND (EUS) Events Date Time Event Comment 11/10/2020 0734 0817 An Start Machine/Equipmen t Checked Infection Precautions Foll owed Procedure/Site Verified NPO Sta tus Verified Supine Standard ASA Mon itors Applied 0821 An Induction 0823 An Intubation 0830 Turnover to Proceduralist 0834 Proc Start 0952 Proc Fin 0953 Turnover to ANE Staff 0956 Airway Removal Criteria Met 0957 Extubation/Airway Removed 1001 an stop data 1011 An End I completed my h andoff to the receiving staff during [facility] we 1. Identified the patient 2. Ident ified the responsible provider 3. Revi ewed the pertinent medical history 4. Discussed the surgical course 5. Review ed intra-op anesthesia management and i ssues during anesthesia 6. Set expectati ons for post-procedure period 7. Allowe d opportunity for questions and ac knowledgement of understanding. Name Total fentanyl injection 50 mcg/mL 50 mcg propofol 10 mg/mL 120 mg succinylcholine 20 mg/mL injection 100 mg phenylephrine 100 mcg/mL injection 400 mcg ePHEDrine PF 5 mg/mL syringe injection 15 mg ondansetron 4 mg/2 mL injection 4 mg levoFLOXacin 750 mg IVPB 750 mg phenylephrine 20 mg/250 mL infusion 1.12 mg Lactated Ringers Free Drip 700 mL Agents No agents on file. Blood No blood administrations on file. Lines, Drains, and Airways Type Details Placement Removal Implanted Port Single 11/05/20; 122; Permanent 11/05/20 1225 by Lumen (tunneled, implanted); Raymond Escobedo, Yes; Yes; Yes; Yes; R.N. Alcohol, Chlorhexidine (Preferred); Yes; Cap, Gloves, Gown, Large drape, Mask (Clinician), Mask (All others in room); N/A; Non-valved; Right; Chest; Power injectable; Securement dressing, Sutured; Dr. Wolf PICC Single Lumen Placement Date: 10/30/20; 10/30/20 142 by 0000 by Placement Time: 142 Garret Moore Manna M, (created via procedure M, R.N. M.P.H., R .N. documentation); Cath Out Checklist Completed: Yes; Size: 3.0 Fr; Length: 51 cm; Orientation: Left; Location: Basilic; Site Prep: Chlorhexidine (Preferred); Local Anesth: Intradermal lidocaine; Initial Extremity Circumference: 26 cm; Initial Exposed Catheter: 2 cm; Inserted By: [facility]; Insertion Attempts: 1; Placement Verification: Blood return, Ultrasound, ECG guidance; Removal Date: 11/30/20 (by outside facility); Removal Reason: Completion of therapy ETT Placement Date: 11/10/20; 11/10/20822 by 11/10 1001 by Placement Time: 822 Tim Ken Owegi, Pete r S, (created via procedure PLASTIC SURGERY MANAGER, SAP BPC DEVELOPER PLASTIC SURGERY MANAGER, CRN A documentation); Mask Ventilation: Not attempted; Type: Standard ETT; Single Lumen Tube Size: 7 mm; Cuffed: Yes; Location: Oral; Removal Date: 11/10/20; Removal Time: 1001 Peripheral IV Placement Date: 11/10/20; 11/10/20 0910 by 11/10 1107 by Placement Time: 0910; Tim Ken Daskam, Da rby M, Catheter Size: 18 G; BRISA JACK R.NRiaz Orientation: Right; Location: Hand; Removal Date: 11/10/20; Removal Time: 1107; Removal Reason: Patient discharged documented in this encounter Social History Tobacco [...] How often do you attend jainism or protestant services? Never 01/15/2021 Do you [...] Date Recorded Male 08/18/2021 2:55 PM CHAIN CARRIER documented as of this encounter OR Notes Anesthesia Postprocedure Evaluation - Tim Ken APRN, CRNA - 11/10/2020 10:11 AM CST Patient: Adam Campbell Procedure Summary Date: 11/10/20 Room / Location: Division of Gastroenterology in [place], [place] Anesthesia Start: 816 Anesthesia Stop: 1010 Procedure: ENDOSCOPIC ULTRASOUND (EUS) Diagnosis: Pancreatitis Acute (HCC) Scheduled Providers: Wally Alcala M.D. Responsible Provider: Tim Ken APRN, CRNA Anesthesia Type: general ASA Status: 3 Anesthesia Type: general Last vitals Vitals Value Taken Time BP 97/74 11/10/20 1006 Temp 36.4 ??C 11/10/20 1006 Pulse 103 11/10/20 1010 Resp 22 11/10/20 1010 SpO2 100 % 11/10/20 1010 Vitals shown include unvalidated device data. Please reference Vitals flowsheet for most recent vital signs. Anesthesia Post Evaluation Patient Disposition: dismissal Cardiovascular status: hemodynamics (HR & BP) acceptable Respiratory status: patent airway with spontaneous effort Temperature: normothermic Oxygen requirements: room air Level of consciousness: awake Pain score: pain adequately controlled and/or at baseline Post Op nausea/vomiting: none Hydration status: euvolemic N CARRIER Anesthesia Procedure Notes - Tim Ken APRN, CRNA - 11/10/2020 8:45 AM CHAIN CARRIER Associated Order(s): Airway Airway Date/Time: 11/10/2020 8:23 AM Performed by: Tim Ken APRN, CRNA Authorized by: Tim Ken APRN, CRNA Patient location during procedure: OR / Procedure Area PROCEDURE DETAILS: Mask difficulty assessment: not attempted Final airway type: video laryngoscope Laryngeal Manipulation: no Final best view of glottic structures - Cormack/Lehane Score: grade 1 ETT location: oral VL device: glide scope Mosier scope blade size: 4 Adult tube size: 7 Adult ETT distance at teeth/gum: 22 Oral tube type: standard ETT Cuffed: yes Number of attempt to successful placement: 1 Airway confirmation: bilateral breath sounds, positive ETCO2 and bilateral chest rise Other previous techniques attempted: none PRE PROCEDURE DETAILS: Pre evaluation for airway management: procedure Urgency: elective Preop assessment of probable difficulty: questionable / suspicious difficult airway Preoxygenation: bag valve mask SEDATION / ANESTHESIA Anesthesia method: anesthesia POST PROCEDURE DETAILS: Procedure outcome: successful Airway event: no complications N CARRIER Anesthesia Preprocedure Evaluation - Timothy Gill M.D., M.B.O.E. - 11/10/2020 7:33 AM CST Preprocedure Anesthesia & H&P Assessment Procedure Summary Date/Time: 11/10/20 0745 Procedure: ENDOSCOPIC ULTRASOUND (EUS) Diagnosis: Pancreatitis Acute (HCC) [K85.90] Location: Division of Gastroenterology in [place], [place] Pertinent components of the patient's history [...] Malignant Neoplasm Of Pancreas (HCC) Other (+) Abscess Intra Abdominal (HCC) (+) Acute Pancreatitis With Infected Necrosis Unspecified (HCC) OBJECTIVE PHYSICAL EXAMINATION Airway (HEENT) Mallampati: II TM Distance: >3 FB Neck ROM: Full Mouth Opening: >3 cm Cardiovascular Rate: Normal Pulmonary Pulmonary Assessment: Non labored General / Constitutional Constitutional Assessment: Thin General State of Health:: ill appearing Neurological Neurologic Assessment:??alert Dental Dental Assessment: dentition in poor repair ASSESSMENT / PLAN ANESTHESIA PLAN ASA: 3 Anesthesia Plan: general Patient seen and allergies reviewed, anesthesia plan and risks discussed directly with patient /legal guardian or through an park interpreter. Risks/Benefits/Alternatives of Blood transfusion discussed with patient / legal guardian, including an opportunity to ask questions and/or decline some or all transfusion therapies. The patient / legalguardian consented to the use of all blood products, as deemed medically necessary Approval to Proceed: approved for anesthesia N CARRIER documented in this encounter Plan of Treatment Upcoming Encounters Date Type Specialty Care Team Description 06/22/2022 Lab Laboratory Medicine Maria Del Rosario Gomez AP RN, C.N.P., M.S. [address] [place], [place] [phone] (Wo rk) 06/22/2022 Infusion Oncology [place], Maria Del Rosario Sanchez APRN, C.N .[place], M.S. [address] [place] [phone] (Mj godoy) 06/29/2022 [facility].N.Pamela., M.S. [address] [place] [address] [phone] (Mj godoy) 06/29/2022 Infusion Oncology [facility] Maria Del Rosario Sanchez APRN, Remy.N .Pamela., M.S. [address] [place] [address] [phone] (Mj godoy) documented as of this encounter Procedures Procedure Name Priority Date/Time Associated Comments Diagnosis LDA ANE ENDOTRACHEAL Routine 11/10/2020 8:45 AM R esults for this AIRWAY CHAIN CARRIER procedure are i n the results section. documented in this encounter Results LDA ANE ENDOTRACHEAL AIRWAY (11/10/2020 8:45 AM CHAIN CARRIER) Narrative Tim Ken APRN, CRNA - 11/10/2020 8:45 AM CHAIN CARRIER Tim Ken APRN, CRNA ? 11/10/2020 ??8:46 AM Airway Date/Time: 11/10/2020 8:23 AM Performed by: Tim Ken APRN, CRNA Authorized by: Tim Ken APRN, CRN A Patient location during procedure: OR / Procedure Area PROCEDURE DETAILS: Mask difficulty assessment: not attempte d Final airway type: video laryngoscope Laryngeal Manipulation: no ?? Final best view of glottic structures - Cormack/Lehane Score: grade 1 ETT location: oral VL device: glide scope Mosier scope blade size: 4 Adult tube size: 7 Adult ETT distance at teeth/gum: 22 Oral tube type: standard ETT Cuffed: yes Number of attempt to successful placemen t: 1 Airway confirmation: bilateral breath so unds, positive ETCO2 and bilateral chest rise Other previous techniques attempted: non e PRE PROCEDURE DETAILS: Pre evaluation for airway management: pr ocedure Urgency: elective Preop assessment of probable difficulty: questionable / suspicious difficult airway Preoxygenation: bag valve mask SEDATION / ANESTHESIA Anesthesia method: anesthesia POST PROCEDURE DETAILS: ? Procedure outcome: successful ?? Airway event: no complications Tim Ken APRN, CRNA ANESTHESIA ORDERABLES documented in this encounter Visit Diagnoses Not on filedocumented in this encounter Administered Medications Inactive Administered Medications - up to 3 most recent administrations Medication Order MAR Action Action Date Dose Rate Site ePHEDrine (PF) injection Given 11/10/2020 8:34 AM CHAIN CARRIER 5 mg intravenous, As needed, Starting on Mon11/10/20 at 0823, Anesthesia Intra-op Given 11/10/2020 8:28 AM CHAIN CARRIER 5 mg Given 11/10/2020 8:23 AM CHAIN CARRIER 5 mg fentaNYL injection (SUBLIMAZE) Given 11/10/2020 8:21 AM CHAIN CARRIER 50 mcg intravenous, As needed, Starting on Mon11/10/20 at 0821, Anesthesia Intra-op lactated ringers New Bag 11/10/2020 8:17 AM CHAIN CARRIER intravenous, Continuous Infusion: Per Instructions PRN, Starting on Mon11/10/20 at 0817, Anesthesia Intra-op levoFLOXacin in D5W IVPB (LEVAQUIN) Given 11/10/2020 8:24 AM CHAIN CARRIER 750 mg Administer over 90 Minutes, As needed, Starting on Mon11/10/20 at 0824, Anesthesia Intra-op ondansetron (PF) injection (ZOFRAN) Given 11/10/2020 8:40 AM CHAIN CARRIER 4 mg intravenous, As needed, Starting on Mon11/10/20 at 0840, Anesthesia Intra-op phenylephrine 80 mcg/mL in NaCl New Bag 11/10/2020 9:10 AM 0.4 mcg/kg/min 20 mL/hr 0.9% 250 mL infusion CHAIN CARRIER Continuous Infusion: Per Instructions PRN, Starting on Mon11/10/20 at 0910, Anesthesia Intra-op phenylephrine injection Given 11/10/2020 9:05 AM CHAIN CARRIER 100 mcg intravenous, As needed, Starting on Mon11/10/20 at 0827, Anesthesia Intra-op Given 11/10/2020 8:42 AM CHAIN CARRIER 100 mcg Given 11/10/2020 8:35 AM CHAIN CARRIER 100 mcg propofoL injection (DIPRIVAN) Given 11/10/2020 8:21 AM CHAIN CARRIER 120 mg intravenous, As needed, Starting on Mon11/10/20 at 0821, Anesthesia Intra-op succinylcholine (PF) injection (ANECTINE ) Given 11/10/2020 8:21 AM CHAIN CARRIER 100 mg intravenous, As needed, Starting on Mon11/10/20 at 0821, Anesthesia Intra-op documented in this encounter Care Teams Radio Host Relationship Specialty Start Date End Date Elsewhere, Pcp PCP - General Family Medicine 08/12/20 documented as of this encounter
--- OUTSIDE RECORDS SUMMARY | 2022-06-18 16:19 | XMS_ITS | Encounter Summary ---
:1965 Author Organization [facility] Address [address] [place] [address] Care Team Providers Name Role Phone Elsewhere, Pcp Primary Care Provider Unavailable Encounter Details Date Type Department Care Team Description 11/05/2020 Lab Department of Ernesto Curiel Preproce dural Lab Exam; Laboratory Medicine and M.D. Computing Machine Operator Antibiotic Treatment Pathology, [place] [address] [place] [address] in [facility] [phone] [place] [address] [place] [phone] Social History Tobacco Use Types [...] often do you attend roman catholic or scientology services? Never 01/15/2021 Do you [...] at Date Recorded Male 08/18/2021 2:55 PM PLANT ENGINEER documented as of this encounter Plan of Treatment Upcoming Encounters Date Type Specialty Care Team Description 06/22/2022 Lab Laboratory Medicine Maria Del Rosario Gomez AP RN, C.N.P., M.S. [address] [place] [phone] (Wo rk) 06/22/2022 Infusion Oncology Maria Del Rosario Gomez APRN, C.N .P., M.S. [address] [place] [phone] (Wo rk) 06/29/2022 Lab Laboratory Medicine Maria Del Rosario Gomez AP RN, C.N.P., M.S. [address] [place] [phone] (Wo rk) 06/29/2022 Infusion Oncology Maria Del Rosario Gomez APRN, C.N .P., M.S. [address] [place] [phone] (Wo rk) documented as of this encounter Procedures Procedure Name Priority Date/Time Associated Diagnosis Comme nts SARS Routine 11/05/2020 2:30 PM Preprocedural Lab Exam Results for this CORONAVIRUS-2, PCR PLANT ENGINEER procedure are in the results section. documented in this encounter Results SARS Coronavirus-2, PCR Asymptomatic (11/05/2020 2:30 PM PLANT ENGINEER) [facility] Method Time Signature SARS Swab, 11/06/2020 [facility] Coronavirus-2 Nasopharynx 2:03 AM PLANT ENGINEER Source SARS Undetected Undetected 11/06/2020 [facility] Coronavirus-2 2:03 AM PLANT ENGINEER , PCR Comment: SARS-CoV-2 RNA absent. This result does not rule out COVID-19 in the patient, as the sensitivity of the test depends o n the timing of the specimen collection and quality of the specimen. Result should be correlated with patient's history and clinical presentat ion. ----ADDITIONAL INFORMATION---- This test was developed and its performa nce characteristics determined by [facility] in a manner co nsistent with CLIA requirements. Independent review by the U.S. Food and Drug Administration is pending. Visit the CDC website: https://www.cdc.gov/coronavirus/ ?? for the most recent guidelines on [place] virus testing. Fact Sheet for Healthcare Providers: (https://www.Aircare/it-mmfil es/ Provider_Fact_Sheet_for_[facility]_COVI D-19.pdf) Fact Sheet for Patients: (https://www.Aircare/it-mmfil es/ Patient_Fact_Sheet_for_COVID-19.pdf) Specimen Anatomical Collection Method Collection Time Receive d Time (Source) Location / / Volume Laterality Varies 11/05/2020 2:30 PM 3:17 (Nasopharynx) PLANT ENGINEER PM PLANT ENGINEER Ernesto Curiel M.D. LAB MICROBIOLOGY - GENERAL O [place] Performing Organization Address City/State/ZIP Code Phon e Number [facility] [address] [place], [place] [address] [facility] [place] [address] [facility] [address] documented in this encounter Visit Diagnoses Diagnosis Preprocedural Lab Exam Residential Antibiotic Treatment documented in this encounter Additional Health Concerns Infection Onset Date Last Indicated Resolved Time COVID19 Pending 11/05/2020 11/05/2020 11/06/2020 2:05 AM PLANT ENGINEER documented as of this encounter Care Teams Supervisor Mold Shop Relationship Specialty Start Date End Date Elsewhere, Pcp PCP - General Family Medicine 08/12/20 documented as of this encounter
--- OUTSIDE RECORDS SUMMARY | 2022-06-18 16:20 | XMS_ITS | Encounter Summary ---
:1965 Author Organization [facility] Address [address] [place] [id number] Care Team Providers Name Role Phone Elsewhere, Pcp Primary Care Provider Unavailable Reason for Visit Reason Comments Chest Pain Abdominal Pain Auth/Cert Specialty Diagnoses / Procedures Referred By Contact Refer red To Contact Diagnoses Malignant Neoplasm Of Pancreas Adenocarcinoma (HCC) Pain Chest Atypical Sepsis (HCC) Acute Pancreatitis With Infected Necrosis Unspecified (HCC) Lower Abdominal Pain Unspecified Procedures ETU Referral ID Status Reason Start Date Expiration Date Visits Requ ested Visits Authorized [id number] 1 1 Encounter Details Date Type Department Care Team Description 10/23/2020 - [facility] Tommy Franco M.D. [address] [place] [phone] Hypotension (Primary Dx); 10/30/2020 [facility], Benjamín Connell M.D. [address] [place] [address] [phone] Pain Chest Atypical; [facility], Areli Knox M.B.B.S. [address] [place] [phone] Lower Abdominal Pain Unspecified; Billie Tucker M.D. [address] [place] [address] [phone] Sepsis (HCC); [facility] Carlos Guerin M.B.B.S. Acute Pancreatitis With Infected Necrosi s Unspecified (HCC); Floor Malignant Neoplasm Of Pancre as Adenocarcinoma (HCC) [address] [place] [address] Social History Tobacco Use Types [...] How often do you attend moravian or religion services? Never 01/15/2021 Do you [...] at Date Recorded Male 08/18/2021 2:55 PM ONCOLOGY REP SPECIALIST documented as of this encounter Last Filed Vital Signs Vital Sign Reading Time Taken Comments Blood Pressure 112/75 10/30/2020 6:09 PM ONCOLOGY REP SPECIALIST Pulse 89 10/30/2020 6:09 PM ONCOLOGY REP SPECIALIST Temperature 36.6 ??C (97.9 ??F) 10/30/2020 6:09 PM ONCOLOGY REP SPECIALIST Respiratory Rate 18 10/30/2020 6:09 PM ONCOLOGY REP SPECIALIST Oxygen Saturation 96% 10/30/2020 6:09 PM ONCOLOGY REP SPECIALIST Inhaled Oxygen Concentration - - Weight 70.8 kg (156 lb 1.4 oz) 10/30/2020 2:40 PM ONCOLOGY REP SPECIALIST Height 179.7 cm (5' 10.75) 10/29/2020 12:51 PM ONCOLOGY REP SPECIALIST Body Mass Index 21.92 10/29/2020 12:51 PM ONCOLOGY REP SPECIALIST documented in this encounter Discharge Summaries John Christianson M.D. - 10/30/2020 3:27 PM CST DISCHARGE SUMMARY BRIEF OVERVIEW Hospital: [facility] Discharge Provider: Carlos Guerin M.B.B.S. Primary Team: [facility] Primary Care Providers: Pcp, Elsewhere (General) No address on file Primary Care Provider Phone Number: None Primary Care Provider Fax Number: None Other Providers: None Admission Date: 10/23/2020 Discharge Date: 10/30/20 PRINCIPAL DIAGNOSIS Acute Pancreatitis With Infected Necrosis Unspecified (HCC) SECONDARY DIAGNOSES Principal Problem: Acute Pancreatitis With Infected Necrosis Unspecified (HCC) Active Problems: Abdominal Pain Bacteremia Gastroesophageal Reflux Disease NOS Malignant Neoplasm Of Pancreas (HCC) Portal Vein Thrombosis Pain Chest Atypical Hypotension Visual Hallucinations Sepsis (HCC) Resolved Problems: * No resolved hospital problems. * DISCHARGE DISPOSITION Home or Self Care [1] ACTIVE ISSUES REQUIRING FOLLOW UP - CT/repeat necrosectomy early next week - outpatient parental antibiotics with monitoring - anticoagulation will need to be discussed after his upcoming procedure - Dismissal antibiotics: ?? Ertapenem 1 g Q 24 hrs Tentative stop date stop date: (pending on imaging and source control); final stop date to be determined at follow up visit - Monitoring lab recommendations: Yes, weekly on antibiotics. Complete blood count with differential, Alanine aminotransferase (ALT) and Creatinine. Please fax to division of Infectious Diseases OPAT monitoring program at [phone] - PICC/Therapy: Maintain PICC until follow up. - Follow up indicated: Indication for follow up: necrotizing pancreatitis with wall infected cyst s/p necrosectomy on 10/29. Follow up with heme/onc infectious diseases on 11/11/2020. OUTPATIENT FOLLOW UP Scheduled Appointments 11/06/2020 8:20 AM Deborah Murray M.B.B.S. Oncology 11/11/2020 10:15 AM IFD HEM ONC ANNABEL 01 Infectious Diseases 11/13/2020 11:20 AM LAB BLOOD [facility] 10 E Laboratory Medicine 11/13/2020 1:20 PM Maria Del Rosario Gomez APRN C.N.P., M.S. Oncology 11/13/2020 2:15 PM ONC CHAIR CHEMO 38 [facility] Oncology For appointment details refer to your Patient Appointment Guide. TEST RESULTS PENDING AT DISCHARGE Pending Labs None DETAILS OF HOSPITAL STAY REASON FOR ADMISSION Malignant Neoplasm Of Pancreas Adenocarcinoma (HCC) Pain Chest Atypical Sepsis (HCC) Acute Pancreatitis With Infected Necrosis Unspecified (HCC) Lower Abdominal Pain Unspecified Hypotension HOSPITAL COURSE 55M admitted for infected necrotic pancreatitis. 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 He eventually developed necrotizing pancreatitis and has had multiple previous admissions for this. He also has nonocclusive portal and splenic vein thromboses for which he has been on anticoagulation. He started chemotherapy (gemcitabine-paclitaxel) on 10/16. His most recent admission was 10/18-10/22 for abdominal pain. He was febrile during this admission although no clear infectious source was determined and antibiotics were discontinued. Peripancreatic fluid collections were noted although no intervention was performed. One day after discharge, he had mental status changes and symptoms concerning for infection and re-presented. Early in the admission, he was febrile and hypotensive with WBC up to 15. CT demonstrated continued peripancreatic fluid collections with new gas concerning for infection. He was treated with Zosyn and underwent endoscopic necrosectomy with GI on 10/26. Two double pigtail catheters were placed through a pre-existing fistula in stomach wall into the necrotic tissue with purulence material returned. He remained hemodynamically stable, afebrile, and white count trended down with treatment. On 10/29, he was brought back for repeat endoscopic necrosectomy, at which time an Axios stent was placed next to the 2 plastic stents that were previously placed. 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 Varices were again visualized during this procedure. He tolerated the procedure and diet was re-initiated. He was dismissed on 10/30. The plan is for repeat CT with necrosectomy with GI in a few days as well as outpatient IV ertapenemthrough a PICC line which was placed 10/30. He will follow-up with Infectious Disease on 11/11 at which time antibiotic duration will be determined. He was previously on therapeutic anticoagulation for his splenic and portal vein thromboses. This was discontinued at the time of dismissal due to upcoming procedure. Anticoagulation should be discussed after his next procedure. Exam at time of dismissal: General: No distress, comfortably resting on bed. HEENT: Normocephalic, atraumatic. Heart: Regular rate and rhythm, normal S1-S2, no murmurs. Lungs: Clear to auscultation bilaterally, no wheezing or crackles Abdomen: Normal bowel sounds, soft and nontender, mildly distended Extremities: No peripheral edema or deformities. Neuro: Alert and oriented, no facial droop or extremity weakness. Skin: No rash on visible skin. Current Discharge Medication List START taking these medications Details ertapenem (INVanz) 100 mg/mL injection Infuse 10 mL (1 g total) into a venous catheter daily for 11 days Indications: Intra-abdominal infection, community acquired. Qty: 110 mL, Refills: 0 Current Discharge Medication List CONTINUE these medications which have NOT CHANGED Details acetaminophen (TYLENOL) 500 mg tablet Take 1 tablet (500 mg total) by mouth every 6 (six) hours. Qty: , Refills: 0 oxyCODONE (ROXICODONE) 10 mg IR tablet Take 1 tablet (10 mg total) by mouth every 3 (three) hours asneeded for moderate pain or score 4-6 of 10 or severe pain or score 7-10 of 10 Indication: Chronic Pain/Nonacute Pain. Refills: 0 ondansetron (ZOFRAN) 8 mg tablet Take 1 tablet (8 mg total) by mouth every 8 (eight) hours as neededfor nausea or vomiting. Qty: 20 tablet, Refills: 0 pantoprazole (PROTONIX) 40 mg EC [...] by mouth 2 (two) times a day. Current Discharge Medication List STOP taking these medications enoxaparin (LOVENOX) 80 mg/0.8 mL injection Comments: Reason for Stopping: magnesium citrate (CITROMA) solution Comments: Reason for Stopping: prochlorperazine (COMPAZINE) 10 mg tablet Comments: Reason for Stopping: CONSULTS ORDERED DURING THIS ADMISSION IP CONSULT TO GASTROENTEROLOGY IP CONSULT TO DIETITIAN IP CONSULT TO INFECTIOUS DISEASES IP CONSULT TO CARE MANAGEMENT CONDITION AT DISCHARGE good Discharge instructions were provided to the patient and caregiver(s). LOGY REP SPECIALIST documented in this encounter Discharge Instructions Discharge InstructionsJacqui Cummins - 10/26/2020 2:53 PM CST You were discharged from the [facility] Oncology Hospital Service. Please identify this service name if youcall with questions after hospitalization. [facility] experts agree: You should get a COVID-19 vaccine as soon as it's available to you. ??? The vaccines that we???re recommending have been approved for safe use. ??? [facility] will continue to coordinate with state and local governments on future vaccine distribution phases. o If your primary care provider is at [facility] and you plan to receive your vaccination at [facility], please ensure that you have activated your Patient Portal at [employer] to allow [facility] to communicate to you about the scheduling process. ??? Practice social distancing, wear a mask properly outside your home, wash your hands frequently, and follow your state and local recommendations until the spread has stopped. ??? The vaccine may not be recommended to those with certain health conditions. Talk to your health care provider if you have questions about receiving the vaccine. LOGY REP SPECIALIST AttachmentsThe following attachments cannot be sent through Care Everywhere. Ertapenem (By injection) (Croatian)documented in this encounter Medications at Time of [...] per tablet a day. acetaminophen (TYLENOL) Take 1 tablet (500 0 01/202001/01/2021 500 mg tablet mg total) by mouth every 6 (six) hours. oxyCODONE (ROXICODONE) Take 1 tablet (10 mg 0 07/202112/22/2020 10 mg IR total) by mouth tabletIndications: every 3 (three) Chronic Pain/Nonacute hours as needed for Pain moderate pain or score 4-6 of 10 or severe pain or score 7-10 of 10 Indication: Chronic Pain/Nonacute Pain. pantoprazole (PROTONIX) Take 1 tablet (40 mg 90 tablet 3 10/02/2021 40 mg EC tablet total) by mouth every morning before breakfast. ertapenem (INVanz) 100 Infuse 10 mL (1 g 110 mL 0 202011/11/2020 mg/mL total) into a venous injectionIndications: catheter daily for Intra-abdominal 11 days Indications: infection, community Intra-abdominal acquired infection, community acquired. ondansetron (ZOFRAN) 8 Take 1 tablet (8 mg 20 tablet 0 /0 01/202102/24/2021 mg tablet total) by mouth every 8 (eight) hours as needed for nausea or vomiting. sodium chloride (Normal 10 mL by 30 Syringe 0 10/30/2020 0 12/11/2020 Saline Flush) 0.9 % intra-catheter route injection as needed for line care. For use with PICC documented as of this encounter Progress Notes Jewel Vazquez M.D. - 10/30/2020 1:02 PM CST GI Consult Progress Note General Manager [employer] Data Cloud: Dr. Navarro Reason for consult: Necrotizing pancreatitis #. Pancreatic adenocarcinoma of the uncinate process #. Post-ERCP necrotizing pancreatitis complicated by walled-off pancreatic necrosis, suggestive of infected pancreatic necrosis #. 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 Campbell is 55-year-old gentleman with pancreatic cancer admitted to the Oncology service on 10/23/2020 for fever, with cross-sectional imaging showing necrotizing pancreatitis with increased quantityof fluid collection and gas. He is being covered with Zosyn for concern for infected necrosis. This is predicated on the presence of gas within the necrosis; however given that there was a spontaneous fistula from the stomach into the necrotic cavity that was noted on endoscopy today, this may also explain the gas. Blood cultures have been no growth to date. That having been said, since starting antibiotics, labs showed improving leukocytosis. No evidence of renal dysfunction. For historical context, this gentleman has a history of biopsy-proven pancreatic adenocarcinoma [...] drainage. ERCP was performed again on 10/01/2019, whichnoted a single tight localized biliary stricture in the common bile duct, with tissue ingrowth, so a bare metal stent was placed into the common bile duct. On 10/26, he underwent evaluation with EUS [...] obtained postprocedurally. On 10/29/2020, he underwent additional necrosectomy. #. Walled off pancreatic necrosis, query infected, with systemic inflammation #. Spontaneous posterior gastric-cyst fistula On 10/29, Mr. Campbell underwent placement of a 15/10 AXIOS stent beside the two existing plastic stentsvia a transgastric approach into a necrotic cavity with pus return. A 10 Fr x 20 cm urinary stent was placed through the AXIOS stent to allow for deeper drainage of the cavity. Clinically, Mr. Campbell isdoing very well after the procedure. Plan is to dismiss today. Dismissal recommendations: - Patient will have a CT scan ordered for outpatient GI primary to review with patient, with a pre-scheduled necrosectomy slot the following day, to be determined based on CT images. I am contacting his GI provider about scheduling this next week. - Infectious disease has left recommendations re: antibiotics, which appear to be Ertapenem via PICCline 1 gram q24 hours until 11/11/2020 OR until source control based on necrosectomy success. He will have a CBC, ALT, and creatinine monitored weekly while on this, sent to ID OPAT monitoring program. He will have follow up with heme/onc ID on 11/11/2020. #. 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 No high-risk features of active bleeding or red Freeman signs. Etiology of the gastric varices is likely from his known splenic vein occlusion. - these varices will be re-evaluated on this subsequent endoscopic evaluation, and once characterized, plans will be made to address these - need for anticoagulation based on chronic occlusion to be determined in outpatient setting but notlikely to be pursued because of chronicity GI consults will sign off now but help facilitate follow up with the patient's primary centrifugal casting machine tender, Dr. Curiel. Jewel Vazquez MD GI & Hepatology fellow, PGY-6 LOGY REP SPECIALIST Carlos Guerin M.B.B.S. - 10/30/2020 11:11 AM CST Patient was seen and evaluated in conjunction with med Onc service. ??Please see note by care team provider for details. ??I agree with document findings, assessment and plan. Patient is a 55-year-old gentleman with localized pancreatic cancer presented with infected necrotizing pancreatitis. He had EGD twice in has stent placed in the fistula communicating with necrotizing pancreatitis. Plan is for patient to be discharged on IV antibiotics ertapenem. Patient will follow-up with GI with scans in 2 weeks to evaluate necrotizing pancreatitis. Patient has received 1 dose of chemotherapy with gemcitabine plus Abraxane hand has been remain on hold because of ongoing pancreatitis issues. LOGY REP SPECIALIST Renetta Tenorio M.D. - 10/30/2020 7:37 AM CST Infectious Diseases [facility] Consulting Service Sign off Note SUBJECTIVE REASON FOR CONSULTATION [facility] service pager at [phone] is following Adam Campbell for necrotizing pancreatitis EVENTS OVER THE PAST 24 HOURS: feels well, passing gas. Eager to go home. Has been eating well, afebrile. No abdominal pain. OBJECTIVE PHYSICAL EXAMINATION VITAL SIGNS I have reviewed the current vital sign data as applicable. Cardiovascular Rate and Rhythm: Normal rate and regular rhythm. Heart sounds: Normal heart sounds. No murmur. Pulmonary Effort: No respiratory distress. Breath sounds: Normal breath sounds. No wheezing. Abdominal General: Bowel sounds are normal. There is no distension. Palpations: Abdomen is soft. Neurological Mental Status: He is alert. DIAGNOSTICS I have reviewed diagnostics. Studies of note include: Results from last 7 days Lab Units 10/30/2042410/29/2043110/26/2041710/26/20417 WBC x10(9)/L 14.2* 10.1* < > 10.1* HEMOGLOBIN g/dL 8.9* 8.8* < > 9.1* PLATELETS AUTO x10(9)/L 460* 426* < > 297 LYMPHS ABSOLUTE x10(9)/L 1.11 -- -- 0.86* EOS ABS AUTO x10(9)/L 0.03 -- -- 0.04 MONOS ABS AUTO x10(9)/L 1.05* -- -- 1.13* BASOS ABS AUTO x10(9)/L <0.03 -- -- <0.03 BASOS MAN DIFF % -- 1 -- -- < > = values in this interval not displayed. Results from last 7 days Lab Units 10/30/2042410/29/2043110/29/2042910/27/2042510/27/20425 SODIUM mmol/L 135 135 -- < > 136 CREATININE mg/dL 0.92 0.92 -- < > 0.93 MAGNESIUM mg/dL 2.1 -- 2.0 -- 2.2 ALT U/L 16 -- -- -- 15 BILIRUBIN TOTAL mg/dL 0.5 -- -- -- 0.4 < > = values in this interval not displayed. Estimated Creatinine Clearance: 89.8 mL/min (by C-G formula based on SCr of 0.92 mg/dL). QTC Interval Date Value Ref Range Status 10/29/2020 514 ms Final ASSESSMENT / PLAN 1. Large peripancreatic infected pancreatic fluid collection w/spontaneous gastric-cyst fistula s/p two double pigtail stents across the fistula with draining pus on 10/26 and s/p necrosectomy on 10/29 2. Pancreatic adenocarcinoma s/p cycle 1 of gemcitabine/paclitaxel chemotherapy on October, 3. History of strep anginosus BSI complicated by septic portal vein thrombus 4. History of necrotizing pancreatitis s/p 6 weeks of IV antibiotic therapy, EOT 09/23 5. Gastric varices ?? DISCUSSION Mr. Campbell is a 55 year old man with history of pancreatitis s/p ERCP found to have pancreatic adenocarcinoma via EUS complicated by necrotizing pancreatitis, strep anginosus bloodstream infection in 08/2020 and most recently admitted due to infected necrotizing pancreatitis. He underwent EGD with EUS on 10/26 and noted to have a spontaneous gastric-cyst fistula, 2 double pigtail stents were initiallyplaced. He underwent necrosectomy on 10/29 with an Axios stent placed next to the 2 plastic stents, per report the distal umbrella did not fully open but its in place, proximal umbrella did not open but large pus noted. Since patient already developed a spontaneous fistula, no role to obtain cultures since they will be polymicrobial. We will treat for 2 weeks, per notes patient is scheduled to havea CT in one week and with potential for future necrosectomies. We will determine duration pending onsource control. If source control obtain, we will discontinue antibiotics. Estimated Creatinine Clearance: 89.8 mL/min (by C-G formula based on SCr of 0.92 mg/dL). RECOMMENDATIONS: 1. Discontinue IV pip/josef 2. Start IV ertapenem 1 g Q 24 hrs for a total of 2 weeks for necrosectomy, last day of therapy: 11/11/2020 and re assess. 3. We will defer repeated imaging to GI. Treatment plan reviewed with Mr. Campbell, who expressed understanding. All questions answered to patient's satisfaction. Discussed with Dr. Pierre. We will sign off. Please page [facility] service pager at [phone] with any questions. Counseling was provided [id number] at bedside regarding the plan of care as stated above. I personally spent over half of a total 20 minutes in counseling and coordination of care as documented above. INFECTIOUS DISEASES SIGN OFF NOTE Primary Team 4. Sign off antibiotics: ?? Please consult care management for OPAT dismissal planning ?? Ertapenem 1 g Q 24 hrs Tentative stop date stop date: (pending on imaging and source control); final stop date to be determined at follow up visit 5. Please arrange PICC catheter prior to discharge. 6. Monitoring lab recommendations: Yes, weekly on antibiotics. Complete blood count with differential, Alanine aminotransferase (ALT) and Creatinine Please fax to division of Infectious Diseases OPAT monitoring program at [phone] Infectious Diseases 1. PICC/Therapy: Maintain PICC until follow up. 2. Follow up indicated: Indication for follow up: necrotizing pancreatitis with wall infected cyst s/p necrosectomy on 10/29. Follow up with heme/onc infectious diseases on 11/11/2020. #1 Abdominal Pain #2 Gastroesophageal Reflux Disease NOS #3 Malignant Neoplasm Of Pancreas (HCC) #4 Portal Vein Thrombosis #5 Acute Pancreatitis With Infected Necrosis Unspecified (HCC) #6 Pain Chest Atypical #7 Hypotension #8 Visual Hallucinations Renetta Urban M.D. LOGY REP SPECIALIST Associated attestation - Tamra Pierre M.D. - 10/30/2020 12:06 PM ONCOLOGY REP SPECIALIST I saw and evaluated the patient, participating in the patel portions of the service. I reviewed the resident/fellow???s note. I agree with the resident/fellow???s findings and plan. Infected pancreatic fluid collection status post necrosectomy. Will treat with ertapenem tentativelyfor 2 weeks. Duration of treatment will depend on follow-up imaging and plans for necrosectomy. MD Taylor Vick Daniel B, M.D. - 10/29/2020 5:09 PM CST GI Consult Progress Note General Manager [employer] Data Cloud: Dr. Navarro Reason for consult: Necrotizing pancreatitis #. Pancreatic adenocarcinoma of the uncinate process #. Post-ERCP necrotizing pancreatitis complicated by walled-off pancreatic necrosis, suggestive of infected pancreatic necrosis #. 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 Campbell is 55-year-old gentleman with pancreatic cancer admitted to the Oncology service on 10/23/2020 for fever, with cross-sectional imaging showing necrotizing pancreatitis with increased quantityof fluid collection and gas. He is being covered with Zosyn for concern for infected necrosis. This is predicated on the presence of gas within the necrosis; however given that there was a spontaneous fistula from the stomach into the necrotic cavity that was noted on endoscopy today, this may also explain the gas. Blood cultures have been no growth to date. That having been said, since starting antibiotics, labs showed improving leukocytosis. No evidence of renal dysfunction. For historical context, this gentleman has a history of biopsy-proven pancreatic adenocarcinoma [...] drainage. ERCP was performed again on 10/01/2019, whichnoted a single tight localized biliary stricture in the common bile duct, with tissue ingrowth, so a bare metal stent was placed into the common bile duct. On 10/26, he underwent evaluation with EUS [...] was confirmed byIV contrasted CT obtained postprocedurally. Today, he underwent additional necrosectomy. I met with him after the procedure and conferenced in with his daughter by phone. #. Walled off pancreatic necrosis, query infected, with systemic inflammation #. Spontaneous posterior gastric-cyst fistula Today, Mr. Campbell underwent placement of a 15/10 AXIOS stent beside the two existing plastic stents via a transgastric approach into a necrotic cavity with pus return. A 10 Fr x 20 cm urinary stent was placed through the AXIOS stent to allow for deeper drainage of the cavity. Clinically, Mr. Campbell is doing very well after the procedure, and is pain and nausea free. He feels like he can eat. He has been afebrile, and WBC has been stable. I suspect it will continue to improve with this more robust cavity access/drainage. He continues on Zosyn for now per ID recs. Plan & recs: - clear liquid diet tonight and advance as tolerated tomorrow - I think Mr. Campbell is approaching ability to dismiss from the hospital soon given his clinical stability and symptomatic improvement. We can also carry out necrosectomies as an outpatient, guided by pre-procedural CT scans. Criteria from our standpoint for discharge include control of pain, ability to meet caloric needs by mouth, passing stool/flatus, and control of infection. If the team feels thatMr. Campbell can dismiss from the hospital on an appropriate antibiotic plan, we will facilitate an outpatient CT scan for him next week followed by a necrosectomy. If he remains inpatient, we recommend aCT scan on Wednesday 11/01, with potential necrosectomy the following Monday or Monday pending endoscopic availability and CT findings. #. 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 No high-risk features of active bleeding or red Freeman signs. Etiology of the gastric varices is likely from his known splenic vein occlusion. - these varices will be re-evaluated on this subsequent endoscopic evaluation, and once characterized, plans will be made to address these GI consults will continue to follow. Please page [phone] for any concerns or questions. Jewel Vazquez MD GI & Hepatology fellow, PGY-6 [employer] SPECIALIST Carlos Guerin M.B.BRiazS. - 10/29/2020 11:03 AM CST Patient was seen and evaluated in conjunction with med Onc service. Please see note by care team provider for details. I agree with document findings, assessment and plan. patient is a 55-year-old gentleman with localized pancreatic cancer who was admitted with infected necrotizing pancreatitis. He underwent EGD and placement of stent in the fistula communicating with the necrotizing pancreatitis. Plan is for patient to undergo necrosectomy today. He remains on antibiotics. We will get ID recommendation regarding antibiotics. From Oncology perspective use only received 1 dose of gemcitabine plus Abraxane and has been on hold because of his pancreatitis issues. LOGY REP SPECIALIST John Christianson M.D. - 10/29/2020 10:28 AM CST [facility] On[facility] PROGRESS NOTE SUBJECTIVE Some continued abdominal distention but no true pain. No nausea or vomiting. He is ready for his procedure today. I have reviewed the current medication list. OBJECTIVE VITAL SIGNS Temperature: [36.6 ??C-36.8 ??C] 36.6 ??C Resp Rate: [15-17] 16 Blood Pressure: (110-117)/(71-75) 113/75 SpO2: [95 %-96 %] 95 % Pulse Rate: [79-87] 87 PHYSICAL EXAM General: No distress, comfortably resting on bed. HEENT: Normocephalic, atraumatic. Heart: Regular rate and rhythm, normal S1-S2, no murmurs. Lungs: Clear to auscultation bilaterally, no wheezing or crackles Abdomen: Normal bowel sounds, soft and nontender, mildly distended Extremities: No peripheral edema or deformities. Neuro: Alert and oriented, no facial droop or extremity weakness. Skin: No rash on visible skin. DIAGNOSTICS I have personally reviewed the laboratory data and imaging since admission, and in/outs for past 72 hours. ASSESSMENT / PLAN Mr. Campbell is a 55-year-old male with a history of pancreatic cancer and pancreatitis from previous ERCP who was admitted with abdominal pain from infected necrotizing pancreatitis. To double pigtail catheters were endoscopically placed on 10/26 with plans to go back for endoscopic necrosectomy today. He is on zosyn in the meantime and is hemodynamically stable. 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 He is on zosyn and s/p 2 double pigtail stents placed through a fistulabetween stomach and fluid collection. Hemodynamically stable and WBC trended down. - continue zosyn - repeat endoscopic necrosectomy today - will ask ID for help choosing antibiotics for dismissal - will determine if AC is appropriate for his thromboses #5 Malignant neoplasm of the pancreas -??Patient received 1st cycle of chemotherapy on 10/16 which included albumin bound paclitaxel and gemcitabine -??can receive chemotherapy as an outpatient??-??this is not his primary reason for his admission and would be hesitant to treat in setting of infection ?? #6 Right forearm swelling, improving - ultrasound RUE without DVT but probable phlebitis involving the right basilic vein #7 Depressive symptoms Has felt depressed since admission since he is not able to do his usual activities. 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 Deferring pharmacologic therapy for now. Severe Malnutrition The patient meets the ASPEN Criteria of malnutrition based on: ?? Average estimated Intake: Less than or equal to 75% for 1 or more months ?? Weight Loss: >7.5% in 3 months(Patient has lost 12% body weight in the past 2 months) ?? Body Fat: Moderate Loss ?? Muscle Mass: Moderate Loss This is in the context of Chronic Illness. Malnutrition Present Upon Admission: Yes Agree with Registered Dietitian's assessment and treatment plan: Interventions: Increase nutrient intake with small, frequent meals and/or snacks Diet: NPO for procedure Tubes/lines: PIV VTE prophylaxis: holding for procedure Disposition: procedure today, possible dismissal the following day if stable. Plan discussed with [facility] On[facility] Vp Analysis, Carlos Vital M.B.B.S.. Please page the [facility] Oncology [facility] service pager at [phone] with any questions. LOGY REP SPECIALIST Carlos Guerin M.B.B.S. - 10/28/2020 11:33 AM CST Patient was seen and evaluated in conjunction with med Onc service. Please see note by care team provider for details. I agree with document findings, assessment and plan. Patient is a 55-year-old gentleman with localized pancreatic cancer who had developed pancreatitis after ERCP. He was hospitalized for progression of necrotizing pancreatitis with peripancreatic fluid collection he underwent EGD and placement of stent in the fistula which has been communicating with the fluid collection. Patient remain on antibiotics. Plan is for him to undergo another procedure tomorrow for necrosectomy. LOGY REP SPECIALIST John Christianson M.D. - 10/28/2020 6:40 AM CST [facility] Oncology Hospital PROGRESS NOTE SUBJECTIVE Abdominal discomfort but not pain today. Feels like he has excess gas which is foul smelling. No BM in 2 days. No nausea or vomiting. Otherwise doing well. I have reviewed the current medication list. OBJECTIVE VITAL SIGNS Temperature: [36.2 ??C-36.3 ??C] 36.2 ??C Resp Rate: [15-17] 15 Blood Pressure: (89-111)/(64-76) 111/76 SpO2: [94 %-99 %] 94 % Pulse Rate: [67-81] 75 PHYSICAL EXAM General: No distress, comfortably resting on bed. HEENT: Normocephalic, atraumatic. Heart: Regular rate and rhythm, normal S1-S2, no murmurs. Lungs: Clear to auscultation bilaterally, no wheezing or crackles Abdomen: Normal bowel sounds, soft and nontender, mildly distended Extremities: No peripheral edema or deformities. Neuro: Alert and oriented, no facial droop or extremity weakness. Skin: No rash on visible skin. Psych: Depressed mood and congruent affect. Normal range and speech. In does not appear to be responding to internal stimuli. DIAGNOSTICS I have personally reviewed the laboratory data and imaging since admission, and in/outs for past 72 hours. ASSESSMENT / PLAN Mr. Campbell is a 55-year-old male with a history of pancreatic cancer and pancreatitis from previous ERCP who was admitted with abdominal pain from infected necrotizing pancreatitis. Necrosectomy performed 10/26 with plans to go tomorrow 10/29. He is on zosyn in the meantime and is hemodynamically stable. #1 Necrotizing pancreatitis with infection #2 Sepsis, suspect from pancreatic fluid collection #3 Portal and splenic vein thromboses #4 Esophageal varices He is on zosyn and s/p 2 double pigtail stents placed through a fistula between stomach and fluid collection. Hemodynamically stable and WBC trending down after source control. Advancing diet slowly. Will go back for more necrosectomy on 10/29. #5 Malignant neoplasm of the pancreas -??Patient received 1st cycle of chemotherapy on 10/16 which included albumin bound paclitaxel and gemcitabine -??can receive chemotherapy as an outpatient??-??this is not his primary reason for his admission and would be hesitant to treat in setting of infection ?? #6 Right forearm swelling, improving - ultrasound RUE without DVT but probable phlebitis involving the right basilic vein #7 Depressive symptoms Has felt depressed since admission since he is not able to do his usual activities. 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 Deferring pharmacologic therapy for now. Severe Malnutrition The patient meets the ASPEN Criteria of malnutrition based on: ?? Average estimated Intake: Less than or equal to 75% for 1 or more months ?? Weight Loss: >7.5% in 3 months(Patient has lost 12% body weight in the past 2 months) ?? Body Fat: Moderate Loss ?? Muscle Mass: Moderate Loss This is in the context of Chronic Illness. Malnutrition Present Upon Admission: Yes Agree with Registered Dietitian's assessment and treatment plan: Interventions: Increase nutrient intake with small, frequent meals and/or snacks Diet: soft diet with NPO @ [place] Tubes/lines: PIV VTE prophylaxis: enoxaparin , but will hold for procedure tomorrow. Disposition: take back necrosectomy on 10/29 Plan discussed with [facility] Oncology [facility] Vp Analysis, Carlos Vital, M.B.B.S.. Please page the [facility] Oncology [facility] service pager at [phone] with any questions. LOGY REP SPECIALIST Carlos Guerin M.Maria.B.S. - 10/27/2020 12:28 PM CST Patient was seen and evaluated in conjunction with med Onc service. I agree with documented findings, assessment and plan. patient is a 55-year-old gentleman localized pancreatic cancer who developed pancreatitis after ERCP. He presented with progression of necrotizing pancreatitis with peripancreaticfluid collection. Patient underwent EGD yesterday with placement of stent in the fistula communicating from stoma. Cultures are pending. He remains on antibiotics. Patient may require another procedureon [id number] for necrosectomy. For his localized cancer he only received 1 dose of chemotherapy with ge mcitabine plus Abraxane. Chemotherapy can be considered for restarting once his infectious issues are resolved. LOGY REP SPECIALIST John Christianson M.D. - 10/27/2020 11:28 AM CST [facility] Oncology Hospital PROGRESS NOTE SUBJECTIVE Tolerated procedure well yesterday. Doing well this morning without abdominal pain. Feels hungry andwould like to eat. I have reviewed the current medication list. OBJECTIVE VITAL SIGNS Temperature: [36.1 ??C-36.6 ??C] 36.2 ??C Heart Rate: [64-94] 64 Resp Rate: [15-26] 17 Blood Pressure: (91-119)/(63-78) 100/64 SpO2: [90 %-99 %] 99 % Pulse Rate: [62-93] 81 PHYSICAL EXAM General: No distress, comfortably resting on bed. HEENT: Normocephalic, atraumatic. Heart: Regular rate and rhythm, normal S1-S2, no murmurs. Lungs: Clear to auscultation bilaterally, no wheezing or crackles Abdomen: Normal bowel sounds, soft and nontender, nondistended. Extremities: No peripheral edema or deformities. Neuro: Alert and oriented, no facial droop or extremity weakness. Skin: No rash on visible skin. Psych: Depressed mood and congruent affect. Normal range and speech. In does not appear to be responding to internal stimuli. DIAGNOSTICS I have personally reviewed the laboratory data and imaging since admission, and in/outs for past 72 hours. ASSESSMENT / PLAN Mr. Campbell is a 55-year-old male with a history of pancreatic cancer and pancreatitis from previous ERCP who was admitted with abdominal pain from infected necrotizing pancreatitis. Necrosectomy performed 10/26 with plans to go back on 10/28 or . He is on zosyn in the meantime and is hemodynamically sta ble. #1 Necrotizing pancreatitis with infection #2 Sepsis, suspect from pancreatic fluid collection #3 Portal and splenic vein thromboses #4 Esophageal varices He is on zosyn and s/p 2 double pigtail stents placed through a fistula between stomach and fluid collection. Hemodynamically stable and WBC trending down after source control. Advancing diet slowly. Will likely need to go back for more necrosectomy on 10/28 or . #5 Malignant neoplasm of the pancreas -??Patient received 1st cycle of chemotherapy on 10/16 which included albumin bound paclitaxel and gemcitabine -??can receive chemotherapy as an outpatient??-??this is not his primary reason for his admission and would be hesitant to treat in setting of infection ?? #6 Right forearm swelling, improving - ultrasound RUE without DVT but probable phlebitis involving the right basilic vein #7 Depressive symptoms Has felt depressed since admission since he is not able to do his usual activities. 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 Deferring pharmacologic therapy for now. Severe Malnutrition The patient meets the ASPEN Criteria of malnutrition based on: ?? Average estimated Intake: Less than or equal to 75% for 1 or more months ?? Weight Loss: >7.5% in 3 months(Patient has lost 12% body weight in the past 2 months) ?? Body Fat: Moderate Loss ?? Muscle Mass: Moderate Loss This is in the context of Chronic Illness. Malnutrition Present Upon Admission: Yes Agree with Registered Dietitian's assessment and treatment plan: Interventions: Increase nutrient intake with small, frequent meals and/or snacks Diet: soft diet with NPO @ [place] Tubes/lines: PIV VTE prophylaxis: enoxaparin , but will hold for possible procedure tomorrow. Disposition: take back necrosectomy on 10/28 or 10/29 Plan discussed with [facility] Oncology Hospital Vp Analysis, Billie Chaparro M.D.. Please page the [facility] Oncology [facility] service pager at [phone] with any questions. LOGY REP SPECIALIST Jewel Vazquez M.D. - 10/27/2020 10:39 AM CST GI Consult Progress Note General Manager [employer]: Dr. Navarro Reason for consult: Necrotizing pancreatitis #. Pancreatic adenocarcinoma of the uncinate process #. Post-ERCP necrotizing pancreatitis complicated by walled-off pancreatic necrosis, suggestive of infected pancreatic necrosis #. 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 Campbell is 55-year-old gentleman with pancreatic cancer admitted to the Oncology service on 10/23/2020 for fever, with cross-sectional imaging showing necrotizing pancreatitis with increased quantityof fluid collection and gas. He is being covered with Zosyn for concern for infected necrosis. This is predicated on the presence of gas within the necrosis; however given that there was a spontaneous fistula from the stomach into the necrotic cavity that was noted on endoscopy today, this may also explain the gas. Blood cultures have been no growth to date. That having been said, since starting antibiotics, labs showed improving leukocytosis. No evidence of renal dysfunction. For historical context, this gentleman has a history of biopsy-proven pancreatic adenocarcinoma [...] drainage. ERCP was performed again on 10/01/2019, whichnoted a single tight localized biliary stricture in the common bile duct, with tissue ingrowth, so a bare metal stent was placed into the common bile duct. On 10/26, he underwent evaluation with EUS [...] was confirmed byIV contrasted CT obtained postprocedurally. Today, we note the improvement in his white blood cell count down to 7.0. #. Walled off pancreatic necrosis, query infected, with systemic inflammation #. Spontaneous posterior gastric-cyst fistula White blood count has now normalized on antibiotics. On 10/26/2020, 2 soft 7 Fr x 20 cm double pigtail stents were placed through the spontaneous fistula in the posterior body of the stomach through which pus was draining, in to a cavity, with positioning confirmed by CT subsequently. This was the chosen intervention over a lumen apposing metal stent because surrounding gas around the stomach impaired visualization of the cavity the prevented safe placement of this stent. Now that the cavity has been identified through the spontaneous gastric cyst fistula, this now provides an avenue for the more substantive lumen apposing metal stent. Recommendations: - please keep NPO at midnight and plan for EUS/ERCP slot 10/28 or 10/29 #. 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 No high-risk features of active bleeding or red Freeman signs. Etiology of the gastric varices is likely from his known splenic vein occlusion. - these varices will be re-evaluated on this subsequent endoscopic evaluation, and once characterized, plans will be made to address these, potentially with glue injection We will see this patient later in the afternoon to discuss any questions he has in person. GI consults will continue to follow. Please page [phone] for any concerns or questions. Jewel Vazquez MD GI & Hepatology fellow, PGY-6 [employer] REP SPECIALIST Jewel Vazquez M.D. - 10/26/2020 5:01 PM CST GI Consult Progress Note General Manager [employer] Data [employer]: Dr. Navarro Reason for consult: Necrotizing pancreatitis #. Pancreatic adenocarcinoma of the uncinate process #. Post-ERCP necrotizing pancreatitis complicated by walled-off pancreatic necrosis, suggestive of infected pancreatic necrosis #. 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 Campbell is 55-year-old gentleman with pancreatic cancer admitted to the Oncology service on 10/23/2020 for fever, with cross-sectional imaging showing necrotizing pancreatitis with increased quantityof fluid collection and gas. He is being covered with Zosyn for concern for infected necrosis. This is predicated on the presence of gas within the necrosis; however given that there was a spontaneous fistula from the stomach into the necrotic cavity that was noted on endoscopy today, this may also explain the gas. Blood cultures have been no growth to date. That having been said, since starting antibiotics, labs showed improving leukocytosis from 15.1 to 10.1. No evidence of renal dysfunction. For historical context, this gentleman has a history of biopsy-proven pancreatic adenocarcinoma [...] drainage. ERCP was performed again on 10/01/2019, whichnoted a single tight localized biliary stricture in the common bile duct, with tissue ingrowth, so a bare metal stent was placed into the common bile duct. Today, he underwent evaluation with EUS and endoscopy determine if he could have placement of a lumen apposing metal stent into the existing necrotic collections. Unfortunately, there was a lot of gas surrounding the stomach, so a cystgastrostomy with an AXIOS lumen apposing metal stent was not deemedsafe. Instead, our endoscopy colleagues used in existing spontaneous gastric fistula and placed plastic stents through this area with return of pus. In theory, these are draining the necrotic cavity, but given the gaseous obscuring of the surrounding parenchyma, it is not clear that these are not in the peritoneum. As such, I asked the team to get the CT scan with intravenous contrast tonight. Recommendations: - please order a CT scan with IV contrast to evaluate the placement of the plastic drainage catheters placed through the spontaneous gastric-cyst fistula - if intra-peritoneal, please let GI consult fellow know (pager [phone]) and please page the bleed team [phone]) to endoscopically remove these drainage catheters - if the drainage catheters are not intra-peritoneal but rather in the correct position (through thestomach into the necrotic cavity), please repeat the necrosectomy (ordered as an EUS and ERCP) in 2-3 days. GI consults will continue to follow. Please page [phone] for any concerns or questions. Jewel Vazquez MD GI & Hepatology fellow, PGY-6 [employer] REP SPECIALIST Carlos Guerin M.B.B.S. - 10/26/2020 11:31 AM CST Patient was seen and evaluated in conjunction with med Onc service. I agree with documented findings, assessment and plan. Patient is a 55-year-old gentleman with locally pancreatic cancer who developed pancreatitis after ERCP. He presented with worsening progression of necrotizing pancreatitis with pe ripancreatic fluid collection. Patient is on antibiotics. Plan is for patient to undergo EGD/EUS/ERCP with possible fluid drainage today. Patient remains on antibiotics. LOGY REP SPECIALIST John Christianson M.D. - 10/26/2020 10:53 AM CST [facility] Oncology Hospital PROGRESS NOTE SUBJECTIVE Slept well. No overnight events. Doing well this morning. Had some abdominal pain but relieved with small dose of Oxy. I have reviewed the current medication list. OBJECTIVE VITAL SIGNS Temperature: [36.2 ??C-36.7 ??C] 36.2 ??C Resp Rate: [18-22] 20 Blood Pressure: (102-117)/(62-77) 117/77 SpO2: [96 %-98 %] 96 % Pulse Rate: [77-88] 84 PHYSICAL EXAM General: No distress, comfortably resting on bed. HEENT: Normocephalic, atraumatic. Heart: Regular rate and rhythm, normal S1-S2, no murmurs. Lungs: Clear to auscultation bilaterally, no wheezing or crackles Abdomen: Normal bowel sounds, soft and nontender, nondistended. Extremities: No peripheral edema or deformities. Neuro: Alert and oriented, no facial droop or extremity weakness. Skin: No rash on visible skin. Psych: Depressed mood and congruent affect. Normal range and speech. In does not appear to be responding to internal stimuli. DIAGNOSTICS I have personally reviewed the laboratory data and imaging since admission, and in/outs for past 72 hours. ASSESSMENT / PLAN Mr. Campbell is a 55-year-old male with a history of pancreatic cancer who was admitted with abdominal pain from necrotizing pancreatitis and pancreatic fluid collection. There was gas on CT concerning for superinfection. EGD/EUS/ERCP for necrosectomy with GI planned for tomorrow 10/26. He is on Zosyn in the meantime and is hemodynamically stable. #1 Necrotizing pancreatitis complicated by worsening peripancreatic fluid collections #2 Malignant neoplasm of the pancreas #3 Sepsis, suspect from pancreatic fluid collection #4 Portal and splenic vein thromboses - GI following - EGD/EUS/ERCP for??necrosectomy today - PPI - daily CBC - continue Zosyn -??Patient received 1st cycle of chemotherapy on 10/16 which included albumin bound paclitaxel and gemcitabine -??can receive chemotherapy as an outpatient??-??this is not his primary reason for his admission and would be hesitant to treat in setting of infection ?? #5 Right forearm swelling, improving - ultrasound RUE without DVT but probable phlebitis involving the right basilic vein #6 Depressive symptoms Has felt depressed since admission since he is not able to do his usual activities. 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 Deferring pharmacologic therapy for now. Severe Malnutrition The patient meets the ASPEN Criteria of malnutrition based on: ?? Average estimated Intake: Less than or equal to 75% for 1 or more months ?? Weight Loss: >7.5% in 3 months(Patient has lost 12% body weight in the past 2 months) ?? Body Fat: Moderate Loss ?? Muscle Mass: Moderate Loss This is in the context of Chronic Illness. Malnutrition Present Upon Admission: Yes Agree with Registered Dietitian's assessment and treatment plan: Interventions: Increase nutrient intake with small, frequent meals and/or snacks Diet: NPO Tubes/lines: PIV VTE prophylaxis: enoxaparin , but holding prior to procedure Disposition: procedure 10/26 then recovery Plan discussed with [facility] On[facility] Vp Analysis, Billie Chaparro M.D.. Please page the [facility] service pager at [phone] with any questions. LOGY REP SPECIALIST John Christianson M.D. - 10/25/2020 3:36 PM CST [facility] PROGRESS NOTE SUBJECTIVE Difficulty sleeping overnight due to nausea. Got prochlorperazine but then could not sleep so he gottrazodone. He eventually was able to sleep with oxycodone and Xanax. Gerton well this morning without nausea or significant pain. Says he had watery diarrhea which started yesterday. I have reviewed the current medication list. OBJECTIVE VITAL SIGNS Temperature: [36.5 ??C-36.8 ??C] 36.7 ??C Resp Rate: [20-22] 22 Blood Pressure: (102-121)/(62-76) 102/62 SpO2: [95 %-98 %] 98 % Pulse Rate: [84-97] 88 PHYSICAL EXAM General: No distress, comfortably resting on bed. HEENT: Normocephalic, atraumatic. Heart: Regular rate and rhythm, normal S1-S2, no murmurs. Lungs: Clear to auscultation bilaterally, no wheezing or crackles Abdomen: Normal bowel sounds, soft and nontender, nondistended. Extremities: No peripheral edema or deformities. Neuro: Alert and oriented, no facial droop or extremity weakness. Skin: No rash on visible skin. Psych: Depressed mood and congruent affect. Normal range and speech. In does not appear to be responding to internal stimuli. DIAGNOSTICS I have personally reviewed the laboratory data and imaging since admission, and in/outs for past 72 hours. ASSESSMENT / PLAN Mr. Campbell is a 55-year-old male with a history of pancreatic cancer who was admitted with abdominal pain from necrotizing pancreatitis and pancreatic fluid collection. There was gas on CT concerning for superinfection. EGD/EUS/ERCP for necrosectomy with GI planned for tomorrow 10/26. He is on Zosyn in the meantime and is hemodynamically stable. #1 Necrotizing pancreatitis complicated by worsening peripancreatic fluid collections #2 Malignant neoplasm of the pancreas #3 Sepsis, suspect from pancreatic fluid collection #4 Portal and splenic vein thromboses #5 Visual Hallucinations #6 Hypotension #7 Anemia - GI following - EGD/EUS/ERCP for??necrosectomy on tomorrow 10/26 - NPO at midnight and hold enoxaparin starting today in anticipation of procedure tomorrow - PPI - daily CBC - continue Zosyn -??Patient received 1st cycle of chemotherapy on 10/16 which included albumin bound paclitaxel and gemcitabine -??can receive chemotherapy as an outpatient??-??this is not his primary reason for his admission ?? #8 Right forearm swelling - ultrasound RUE without DVT but probable phlebitis involving the right basilic vein Severe Malnutrition The patient meets the ASPEN Criteria of malnutrition based on: ?? Average estimated Intake: Less than or equal to 75% for 1 or more months ?? Weight Loss: >7.5% in 3 months(Patient has lost 12% body weight in the past 2 months) ?? Body Fat: Moderate Loss ?? Muscle Mass: Moderate Loss This is in the context of Chronic Illness. Malnutrition Present Upon Admission: Yes Agree with Registered Dietitian's assessment and treatment plan: Interventions: Increase nutrient intake with small, frequent meals and/or snacks Diet: NPO @[place] Tubes/lines: PIV VTE prophylaxis: enoxaparin , but will hold prior to procedure. Disposition: procedure 10/26 then recovery Plan discussed with [facility] On[facility] Vp Analysis, Billie Chaparro M.D.. Please page the [facility] Oncology [facility] service pager at [phone] with any questions. LOGY REP SPECIALIST Efren Eugene M.D., Ph.D. - 10/25/2020 3:13 PM CST I met with Mr. Campbell with the [facility] team. Assessment and plan: #1 Pancreatic cancer #2 Necrotizing pancreatitis #3 Peripancreatic fluid collection #4 Sepsis #5 Depressed mood #6 Diarrhea Mr. Campbell continues to improve. We will continue antibiotics and will assess for Clostridium difficile colitis as a cause of his diarrhea, although that is improving. He will undergo EGD tomorrow with a goal of draining his peripancreatic fluid collection. Mr. Campbell endorses a depressed mood. He has not had depression in the past, but he relates that it is difficult for him not to be active and doing the things that he is used to doing. We discussed thatwe will reassess his mood after he has had the procedure and we have a better sense as to whether wewill be able to resume outpatient therapy. Billie Uribe M.D. - 10/24/2020 12:26 PM CST Medical oncology supervisory note I saw and evaluated the patient, participating in the patel portions of the service. I reviewed the resident/fellow???s note. I agree with the resident/fellow???s findings and plan. Assessment and Plan #1 Necrotizing pancreatitis complicated by worsening peripancreatic fluid collections?? #2 Malignant Neoplasm Of Pancreas #3 Sepsis, suspect from pancreatic fluid collection #4 Portal and splenic vein thrombosis #5 Visual hallucinations #6 Hypotension Patient is mentating much better today, stating more awake and answering questions appropriately. Heunderstands that he will have a procedure with Gastroenterology on Monday to help address the fluid collections which have been inhibiting our ability to give him chemotherapy and manage him as an outpatient. Currently the patient is very comfortable and not requiring narcotic pain medications. He continues on the antibiotics. He did have some right upper extremity swelling which I suspect is related to potassium infusion from a peripheral IV, however patient is quite anxious and we will check an ultrasound just to look for any evidence of clot. He continues to have loose bowel movements, but they do not appear to have any blood. We are monitoring his hemoglobin and if we do see any signs of GI bleeding will have a low threshold to have our GIbleed Team, assess the patient. Aramis Hilton M.D. - 10/24/2020 7:00 AM CST Oncology Hospital Progress Note SUBJECTIVE 55 year old man with history of pancreatic adenocarcinoma who presents with abdominal pain and pancreatic fluid collection. PMHx: ?? Pancreatic adenocarcinoma ? July 2020: Biopsy diagnosis ? July 2020: ERCP & insertion of metal stent complicated by pancreatitis and peripancreatic abscess with strep anginosus bacteremia. Was hospitalized with IV antibiotics ? September 2020: Hospitalized with abdominal pain, prior stent patent - obstructed CBD stricture found & stented, extensive necrotizing pancreatitis ? October 2020: Chemotherapy gemcitabine-paclitaxel started ? October 2020: Admission to Oncology inpatient Service with Abdominal pain Interval Events: - this morning his main concern is his swollen right forearm, where he previously had an IV in place - he also is having diarrhea, brown in color, no maroon stools, BRB, or black tarry stools - his pain is controlled - he is no longer hallucinating or seeing gnats - he was transferred out of the ICU - patient is more alert this morning I have reviewed the current medication list. OBJECTIVE VITAL SIGNS Temperature: [36.3 ??C-38.1 ??C] 37.6 ??C Heart Rate: [83-111] 83 Resp Rate: [17-26] 20 Blood Pressure: (90-117)/(56-71) 103/60 SpO2: [95 %-100 %] 100 % Pulse Rate: [72-112] 104 Intake/Output Last 24 Hours: Intake/Output Summary (Last 24 hours) at 10/24/2020 1356 Last data filed at 10/24/2020 1251 Gross per 24 hour Intake 1800 ml Output 350 ml Net 1450 ml PHYSICAL EXAM General: Alert, oriented, no apparent distress Eyes: PERRL Heart: Regular rate and rhythm, no murmurs Lungs: Clear to auscultation bilaterally Abdomen: Soft, tender to palpation, bowel sounds present, mild guarding Neuro: Grossly intact Psych: Mood and affect congruent DIAGNOSTICS Recent Results (from the past 24 hour(s)) CBC with Differential, Blood Collection Time: 10/24/20 4:42 AM Result Value Hemoglobin 8.3 (L) Hematocrit 25.8 (L) Erythrocytes 3.35 (L) MCV 77.0 (L) RBC Distrib Width 15.5 (H) Platelet Count 182 Leukocytes 15.1 (H) Neutrophils 12.60 (H) Lymphocytes 0.74 (L) Monocytes 1.73 (H) Eosinophils <0.03 Basophils <0.03 Renal Function Panel Collection Time: 10/24/20 4:42 AM Result Value Potassium, S 3.6 Sodium, S 133 (L) Chloride, S 100 Bicarbonate, S 24 Anion Gap 9 Bld Urea Nitrog(BUN), S 10 Creatinine, S 0.93 eGFR-Non Black >90 eGFR-Black >90 Calcium, Total, S 7.6 (L) Glucose, S 106 Albumin, S 2.2 (L) Phosphorus (Inorganic), S 1.6 (L) I have reviewed available laboratory and imaging studies for the prior 72 hours. ASSESSMENT / PLAN #1 Necrotizing pancreatitis complicated by worsening peripancreatic fluid collections #2 Malignant neoplasm of the pancreas #3 Sepsis, suspect from pancreatic fluid collection #4 Portal and splenic vein thromboses #5 Visual Hallucinations #6 Hypotension #7 Anemia - GI consulted, appreciate recs - ordered EGD/EUS/ERCP for necrosectomy to be done on Monday - IV PPI BID - daily CBC - continue zosyn antibiotic therapy -??Patient received 1st cycle of chemotherapy on 10/16 which included albumin bound paclitaxel and gemcitabine - can receive chemotherapy as an outpatient - this is not his primary reason for his admission #8 Right forearm swelling - obtain ultrasound RUE to evaluate for phlebitis versus DVT #9 Severe Malnutrition Malnutrition Criteria: Weight Loss: >7.5% in 3 months(Patient has lost 12% body weight in the past 2 months) Average estimated Intake: Less than or equal to 75% for 1 or more months Muscle Mass: Moderate Loss Body Fat: Moderate Loss Nutritional Status: Severe Malnutrition Malnutrition in the Context of: Chronic Illness. Please see Dietitians plan of care for more information. Diet: regular Tubes/Lines: PIV VTE prophylaxis: held in setting of concern for GIB Code status: Full Code Disposition: Continued inpatient management Plan discussed with [facility] Oncology Hospital Vp Analysis, Dr. Billie Shaw MD. Please page the [facility] Oncology [facility] service pager at [phone] with any questions. Aramis Donohue M.D. LOGY REP SPECIALIST Lianne Medellin M.S., RDN, LD - 10/23/2020 3:22 PM CST Clinical Nutrition: Initial Assessment RECOMMENDATIONS REQUIRING MD/PROVIDER ORDER Continue current nutrition orders. Patient to order shakes/smoothies as desired from menu Given patients severe malnutrition and significant weight loss of 12% in the past two months, may need to consider enteral nutrition into the small bowl with an elemental formula such as Peptamen 1.5. Would recommend a goal rate of 50 ml/hr continuous, which would provide patient with 1800 kcal, 82 gmprotein if patient is unable to meet nutritional needs through oral intake. If parenteral nutrition is indicated, consider Nutrition Support Service consult. For questions about patient's nutritional care please contact pager [phone] NUTRITION ASSESSMENT: Mr. Campbell is a 55 y.o. male admitted for sepsis, necrotizing pancreatitis complicated by peripancreatic fluid collection. Patient does have pancreatic adenocarcinoma, ERCP pancreatitis and fluid collection. Requested to see patient for evaluation of: assessment of nutritional status. MALNUTRITION CRITERIA: Recent Oral Intake Average estimated Intake: Less than or equal to 75% for 1 or more months Weight Changes Weight Loss: >7.5% in 3 months(Patient has lost 12% body weight in the past 2 months) Body Fat Body Fat: Moderate Loss Orbital Region: Slightly dark circles, somewhat hollow look Upper Arm Region (Triceps/biceps): Some depth of pinch, but not ample Thoracic and Lumbar Region (Rib/lower back/midaxillary line): Chest is full, ribs do not show. Slight to no protrusion of the iliac crest Muscle Mass Muscle Mass: Moderate Loss Temporal Region (Temporalis Muscle): Slight depression Clavicle Bone Region (Pectoralis Major, Deltoid, Trapezious Muscles: Visible in male, some protrusion in female Clavicle and Acromion Bone Region (Deltoid Muscle) : Acromion process may slightly protrude Dorsal Hand (Interosseous Muscle): Muscle bulges or is flat Patellar Region (Quadricep Muscle): Muscle protrudes, bones not prominent Anterior Thigh Region (Quadriceps Muscle): Well-rounded, well-developed Posterior Calf Region (Gastrocnemious Muscle) : Well-developed bulb of muscle Nutritional Status: Severe Malnutrition Malnutrition in the Context of: Chronic Illness Current nutrition orders: Current Diet Adult Diet Regular starting at 10/23 1012 Completed visit with patient today as part of face to face care. Nutrition history: Patient's oral intake has been fair the past several weeks. He states the thrush in his mouth is causing lack of interest in eating, making foods taste terrible. Family did bring in food during my visit with patient today. He did try a protein shake made in the kitchen and enjoyed that, encouraged patient to continue to order shakes/smoothies as desired. ANTHROPOMETRICS: Height: 179.7 cm Admission Weight: 72.8 kg (10/23/2020) Current Weight: 72.8 kg BMI (Calculated): 22.5 kg/m?? Weight change since admission: 0 kg Weight Change History: Significant weight loss of 12% in the past two months. ESTIMATED NEEDS: Total Calorie Needs: 9384-9188 calories/day Method to Estimate Energy Needs: Ramirez-[place] (Basal to Basal + 20%) Weight Used for Equation Calculations: 72.8 kg Total Protein Needs: 87 - 109 grams/day Method to Estimate Protein Needs (g/kg): 1.2 - 1.5 gm/kg Weight Used to Calculate Protein Needs (Kg): 72.8 kg NUTRITION DIAGNOSIS: Malnutrition (undernutrition) related to decreased ability to consume sufficient energy in order to maintain weight as evidenced by significant weight loss of 12% in two months; muscle wasting and lossof adipose tissue; energy intake < 75% of estimated needs for 1 month or greater NUTRITION PLAN/MONITORING/EVALUATION: Interventions: Increase nutrient intake with small, frequent meals and/or snacks. Monitoring: Meals/Supplement Intake, Weight Status, Pertinent Labs . LOGY REP SPECIALIST documented in this encounter H&P Notes Areli Knox M.B.B.S. - 10/23/2020 11:30 AM CST SUBJECTIVE CHIEF COMPLAINT Abdominal pain, was feeling unsteady HISTORY OF PRESENT ILLNESS I have seen patient personally, reviewed in multidisciplinary rounds chart, imaging and labs and agree with the plan per critical care team GUERO Jerez. Briefly, Mr. Adam Campbell, is a 55 yo gentleman who is coming from our Ed for hypotension and concern for sepsis. He received 2 L of IVF, and zosyn, for sepsis suspected to be from an increasing pancreatic fluid collection. He has known pancreatic cancer, portal vein thrombosis and splenic vein thrombosis and was released from the hospital yesterday and had been admitted for abdominal pain. He has had CBD stricture and ERCP for stent placement in jul 2020, developed post ERCP necrotizing pancreatitis and subsequent infections. He has also had severe constipation. Mr. Campbell had soon after reaching home started feeling like walking into colon, worsening abdominal pain and hence decided to come in. He also gets chest pain with breathing around the epigastric area.He is from [place]. OBJECTIVE VITAL SIGNS I have reviewed the current vital sign data as applicable to this admission. PHYSICAL EXAM Gen: thin, cachectic, in NAD Abdomen: soft, tender, mostly in epigastric area but no guarding or rigidity DIAGNOSTICS I have reviewed relevant laboratory, imaging, and other diagnostics as applicable to this admission. ASSESSMENT / PLAN 1. Sepsis, suspect from pancreatic fluid collection 2. H/o post ERCP pancreatitis 3. Pancreatic adenocarcinoma 4. Portal and splenic vein thrombosis 5. GERD 6. Cachexia 7. Visual hallucinations Code status: Full DVT prophylaxis: resume heparin sc Disposition: ICU Background of pancreatic adenocarcinoma and post ERCP pancreatitis and fluid collection. This is increasing on his CT abdomen from today. He is stable. No further fluid needs. Lactate is normal. We should cover him with zosyn, while we await antibiotics. Liaise with oncology. Would suggest, we re- engage with GI. LOGY REP SPECIALIST Joan Reece M.BRiazBRiazS. - 10/23/2020 7:49 AM CST SUBJECTIVE LOCAL ONCOLOGIST No care support team member to display PRIMARY COGAN STATION ONCOLOGIST Deborah Murray M.B.BDerian CHIEF COMPLAINT Patient is a 55 y.o. male who presents with abdominal pain. PMH: ?? Pancreatic adenocarcinoma ?? July 2020: Biopsy diagnosis ?? July 2020: ERCP & insertion of metal stent complicated by pancreatitis and peripancreaticabscess with strep anginosus bacteremia. Was hospitalized with IV antibiotics ?? September 2020: Hospitalized with abdominal pain, prior stent patent - obstructed CBD stricture found & stented, extensive necrotizing pancreatitis ?? October 2020: Chemotherapy gemcitabine-paclitaxel started ?? October 2020: Admission to Oncology inpatient Service with Abdominal pain HISTORY OF PRESENT ILLNESS Oncology History Oncology [...] PACLitaxel Protein - Bound Start Date: 10/16/2020 OBJECTIVE VITAL SIGNS Temperature: [36.5 ??C] 36.5 ??C Heart Rate: [83-99] 88 Resp Rate: [11-23] 17 Blood Pressure: (86-97)/(55-71) 86/55 SpO2: [93 %-100 %] 95 % Weight: [72.8 kg] 72.8 kg Pulse Rate: [83-100] 89 PHYSICAL EXAM General: Alert, oriented, appropriate affect, no apparent distress. ENT: Moist oral mucosa without mucositis. Heart: Regular rate. No murmurs or rubs. Lungs: Clear to auscultation bilaterally. Abdomen: Soft, diffusely tender worse in the left upper quadrant, bowel sounds present, mild guarding Neuro: Appropriate gait for age. Proximal and distal strength in the upper and lower extremities is grossly intact. ASSESSMENT / PLAN Mr. Adam Campbell is a 55 y.o.??male??readmitted with increasing abdominal pain. He was recently discharged with a similar presentation - Gastroenterology were consulted no surgical indication at the [facility]. His CT abdomen on admission shows progression of necrotizing pancreatitis with an increase in size of multifocal peripancreatic fluid collections with new extensive gas concerning for infection. He remains afebrile, hypotensive (89/62), HR 80-90, saturating 97% on room air. Worsening normocytic anemia (HB 7.6, 8.4 on discharge), rising leukocytosis with neutrophilic predominance. Normal lactate 1.1. He is more confused, less alert and in more pain compared to discharge. PMH: ?? Pancreatic adenocarcinoma ?? July 2020: Biopsy diagnosis ?? July 2020: ERCP & insertion of metal stent complicated by pancreatitis and peripancreaticabscess with strep anginosus bacteremia. Was hospitalized with IV antibiotics ?? September 2020: Hospitalized with abdominal pain, prior stent patent - obstructed CBD stricture found & stented, extensive necrotizing pancreatitis ?? October 2020: Chemotherapy gemcitabine-paclitaxel started ?? October 2020: Admission to Oncology inpatient Service with Abdominal pain ?? #Necrotizing pancreatitis secondary to ERCP complicated by worsening peripancreatic fluid collections # abdominal pain The patient is presenting with abdominal pain and CT abdomen with evidence of worsening peripancreatic fluid collection. The patient was recently discharged from Oncology. The patient will need gastroenterology evaluation for endoscopic necrosectomy consideration. ?? as per CCM, blood cultures and antibiotics ?? recommend gastroenterology consultation ?? on his previous hospital admission: Analgesia regime was as below ?? Dlaudid 2-4 mg p.o. q.4 hours p.r.n. ?? Or Dilaudid 0.2 mg IV q.2 hours p.r.n. ?? #Anemia His anemia is likely multifactorial with a component of chemotherapy-induced. Hemoglobin should be trended and any evidence of bleeding worsening abdominal pain should prompt recheck. # Malignant Neoplasm Of Pancreas (HCC) -??Patient received 1st cycle of chemotherapy on 10/16 which included albumin bound paclitaxel and gemcitabine - can receive chemotherapy as an outpatient - this is not his primary reason for his admission ?? TRAMAINE Duval PGY-1 Internal Medicine Pager: [phone] The impression and plans were explained in detail. There were no apparent barriers to learning and understanding. Questions were answered. LOGY REP SPECIALIST Associated attestation - Billie Shaw M.D. - 10/23/2020 2:01 PM ONCOLOGY REP SPECIALIST Medical oncology supervisory note I had the opportunity to see and evaluate the patient with the Medical Oncology 1 team please see Chevy???s admission note for full details on the history of present illness, past medical history, socialhistory, family history, physical exam, review of systems, and assessment and plan. I agree with hisnote. Assessment/Plan #1 Necrotizing pancreatitis complicated by worsening peripancreatic fluid collections #2 Malignant Neoplasm Of Pancreas #3 Sepsis, suspect from pancreatic fluid collection #4 Portal and splenic vein thrombosis #5 Visual hallucinations #6 Hypotension Mr. Campbell was just dismissed from our service yesterday after being treated for abdominal pain, and severe constipation. He did have a fever on this admission initially, but it was felt that this was not due to infectious causes and antibiotics were stopped. He remained afebrile through the duration of the hospitalization, and after an aggressive bowel regimen and a number of large bowel movements, his abdominal pain significantly subsided and he was requiring a very low amount of pain medication. He was subsequently dismissed to home and unfortunately that evening developed generalized weakness, hallucinations, and was stumbling into the colon. He was seen in the emergency department and found to be hypotensive. He was fluid resuscitated and aCT scan revealed worsening of the necrotizing pancreatitis and surrounding fluid collections. There was new gas accumulation concerning for infection. He has been started on antibiotics and admitted tothe ICU for further monitoring. On rounds today he definitely was more somnolent and less interactive than he had been with us on the general oncology floor despite having minimal pain medication. GI and Surgical team have been consulted for consideration of addressing these fluid collections. I am very concerned that we continue to have complications due to the necrotizing pancreatitis and surrounding infection and unable to get chemotherapy in for his malignancy. documented in this encounter Procedure Notes Garret Moore R.N. - 10/30/2020 3:09 PM CSTAssociated Order(s): Place peripherally inserted central catheter (PICC) Place peripherally inserted central catheter (PICC) Date/Time: 10/30/2020 3:09 PM Performed by: Garret Moore R.N. Authorized by: John Christianson M.D. Care team members present 1. Lavon Cameron M.SMariajose, R.N. PROCEDURE DETAILS Select Line: PICC Line Type: Temporary (non-tunneled, non-implanted) Line Size: 3.0 FR Adult or Siva/Peds: Adult # of Lumens: Single lumen Type of Catheter: Power injectable and valved Laterality: Left IV Location: Basilic Optimal site selected: Yes Number of insertion attempts: 1 Blood Return: Yes Placement Assistance: ECG guidance and ultrasound guided Tip Verification: ECG Catheter Length (cm): 51 Initial Exposed Catheter (cm): 2 Mid Upper Arm Circumference (cm): 26 All lumens flushed (Document volume in I/O): yes CONSENT Consent obtained: written PRE PROCEDURE DETAILS Indications: Needed after discharge for ongoing care Appropriate hand hygiene, gown, cap, mask, protective eyewear, sterile gloves, skin preparation, sterile drape, and strict aseptic technique were utilized as applicable for the procedure.: yes Site preparation: Chlorhexidine SEDATION / ANESTHESIA Anesthesia method: local infiltration Local infiltrate type: lidocaine POST PROCEDURE DETAILS Procedure completed successfully: yes Complications: no apparent complications LOGY REP SPECIALIST Benjamín Connell M.D. - 10/23/2020 6:17 PM CSTAssociated Order(s): Critical Care Procedure Critical Care Performed by: Benjamín Connell M.D. Authorized by: Benjamín Connell M.D. Critical care provider statement: Critical care total time (minutes): 45 Critical care time was exclusive of: separately billable procedures and treating other patients and teaching time CPR was performed on this patient: no Critical care was necessary to treat or prevent imminent or life-threatening deterioration of the following conditions: sepsis Critical care was time spent personally by me on the following activities: Development of treatment plan with patient or surrogate, discussions with consultants, evaluation ofpatient's response to treatment, examination of patient, obtaining history from patient or surrogate, ordering and performing treatments and interventions, ordering and review of laboratory studies, ord ering and review of radiographic studies, pulse oximetry, re-evaluation of patient's condition, review of old charts and interpretation of cardiac output measurements I assumed direction of critical care for this patient from another provider in my specialty: yes Benjamín Connell M.D. 10/23/201816 LOGY REP SPECIALIST documented in this encounter Consult Notes Mye Pressley R.N. 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 Services Used: No Patient Information Primary Caregiver: Self Faith/Cultural Factors: Congregation Diet/Texture: By mouth Legal Information Legal Decision Maker: Self Advance Directives Status: (patient refused any informaiton offered) Caregiver Information Caregiver Name: Shaniqua Campbell Caregiver Relationship: Caregiver Caregiver Address: same Services Requested OBJECTIVE Functional Status (ADLs) Functional Status: Independent Assistive Devices: Cane, Walker, Wheelchair, Toilet riser, Shower chair Level of Assistance: Independent Dressing: Independent Feeding: Independent Bathing: Independent Grooming: Independent Toileting: Independent Transfer to/from Bed, Chair Etc.: Independent Mobility: Independent Meal Prep: Independent Medication Setup/Administration: Independent Telephone Use: Independent Housekeeping: Independent Shopping: Independent Managing Finances: Independent Behavior: Oriented Communication: Can write, Talks, Understands speaking, Understands Croatian, Language barrier, Reads Environmental Supports Home Environment: House Anticipated Modifications to the Patient's Home: None Anticipated Needs/Assistive Devices ADL Anticipated Needs: None Equipment Anticipated Needs: None Transportation Needs: Independent to drive Finance/Insurance Primary insurance: [employer] Secondary insurance: N/A Does the Patient have any Financial Concerns?: No Income Source: Employed Income/Expense Information: Income meets expenses Discharge Planning Barriers To Discharge: None Strengths: Support of immediate family, Support of extended family/friends, Attitude of family, Attitude of self, Assets, Home design, Adaptive/Assistive products, Ability to acquire knowledge Type of Residence: Private residence Support Systems: Spouse, Children Assistance Recommended after Discharge: None Home Care Services: No Anticipated Discharge Destination: Home or Self Care Does the patient need discharge transport arranged?: No ASSESSMENT / PLAN Plan Assessment: The laborer gold leaf met with Adam Cai Adrian to discuss his current hospitalization and home going needs. The patient was unaccompanied. The patient was a reliable historian. The role of laborer gold leaf was reviewed. The patient reviewed his prior level of care and support system. The patient receives support from his , children and neighbors . The patient described his living environment as a single level home with level entry. Housekeeping, grocery shopping, meal prep, and other household responsibilities have previously been completed by patient and care assistances that assist the patients . laborer gold leaf discussed the patient's po tential needs at dismissal based on their home setting, previous needs and responsibilities, homebound status, and relevant assessments with the patient. The patient will be safe and supported to return home with family when medically ready. Support will be provided by self and children . The patient demonstrated understanding when discussing his home going plans and anticipated needs. Patient stated that he lives in a one story home that is handicap accessible as his has MS and uses a wheelchair. Patient stated that he has all the DME that could ever be wanted. Patient has a continuous out of school hours care worker. Patient stated he still drives and is able to do all ADLs self at this time. Patient stated he only needs IV antibiotics set up at this time. The three ways of continuing IV antibiotics if needed at dismissal were discussed. The patient indicated if IV antibiotics are needed at discharge he would like to pursue: home infusion company. After reviewing the patient's chart and meeting with the patient, the laborer gold leaf deemed the LACE+/readmission questions were not necessary. The patient reports understanding that he will dismiss from the hospital when medically stable. Pending hospital course and medical readiness, no barriers to dismissal have been identified at this time. Plan: The patient agrees with the following plan. Patient's anticipated discharge disposition is: Home to Self Care with Home IV Infusion and Home Healthcare Referrals sent. Patient will discharge home with home infusions. Individuals have been identified who are willing and able to learn the infusion technique. Dialysis/Infusion - Admitted Since 10/23/2020 Service Provider Selected Services Address Phone Fax Patient Preferred [facility] [address] [address] [phone] -- Contact: Intake NURSING: - Adjust the dosing schedule to accommodate home infusion. - Fax any prescriptions 24 hours prior to discharge. - Complete documentation in the Discharge Navigator including Nursing Report Info and Facility/NextLevel of Care Info - Call report and arrange for patient???s first visit. - Be sure the patient receives a dose prior to dismissal on the day of discharge. - Send After Visit Summary, include IV access information and current labs and required packet of dismissal information with patient, including advance directive. PRIMARY SERVICE: - Prescription needs to be completed and faxed to the infusion provider at least 24 hours prior to dismissal. - Prescription needs to include: - Orders for IV meds with a stop date - Normal Saline/Heparin flushes and site care for IV access The following information will need to be included in the After Visit Summary: - Orders for IV meds with a stop date - Normal Saline/Heparin flushes and site care for IV access - Recommendations for any lab work while on IV therapy - Discontinue IV access at completion of therapy - Contact patient's primary care provider for writing IV orders, monitoring of labs/levels and any other continuing care needs. A copy of the After Visit Summary needs to be sent there as well. Site care and blood draws will be managed by Home Care: Home Medical Care - Admitted Since 10/23/2020 Service Provider Selected Services Address Phone Fax Patient Preferred [facility] [address] [place] [address] [phone] -- Contact: Intake They will provide the nursing, patient family teaching, and IV access care for this patient. NURSING: - Complete documentation in the Discharge Navigator including Nursing Report Info and Facility/NextLevel of Care Info - Call report and arrange for the patient's first visit - Send After Visit Summary and required packet of dismissal information with patient, including advance directive. PRIMARY SERVICE: - Please provide an order for: PICC site care and lab draws in the After Visit Summary. - Communicate with the patient's local primary care provider by telephone for writing of home care orders. This needs to be done to help prevent discharge delays. A copy of the After Visit Summary needs to be sent there as well. CASE MANAGEMENT: -Will continue to follow for ongoing discharge planning needs. 1. Transportation upon dismissal will be provided by family--friends. 2. laborer gold leaf recommended nothing at this time. 3. laborer gold leaf provided information regarding the dismissal process. 4. laborer gold leaf placed or requested the following hospital-based consult orders and/or referrals:None. 5. laborer gold leaf will continue to assess for homegoing needs with the interdisciplinary team. 6. laborer gold leaf encouraged the patient to reach out with any questions/concerns. Care Management will continue to follow. Mey Pressley R.N. 10/30/2020 LOGY REP SPECIALIST Renetta Tenorio M.D. - 10/29/2020 9:18 AM CSTAssociated Order(s): IP CONSULT TO INFECTIOUS DISEASES Infectious Diseases [facility] Consulting Service Consult Note SUBJECTIVE REASON FOR CONSULT We are seeing Mr. Campbell at the request of Carlos Guerin M.B.B.SRiaz to give further recommendations for evaluation and management of antibiotic recs for dismissal. infected necrotic pancreatitis currently on zosyn. endoscopic necrosectomy today, poss dc tomorrow.. HISTORY OF PRESENT ILLNESS Mr. Campbell is a 55-year-old male with a history of necrotizing pancreatitis and pancreatic adenocarcinoma who presents with abdominal pain found to have progression of necrotizing pancreatitis with a peripancreatic fluid collection. ?? Mr. Campbell has a background history of necrotizing pancreatitis, including an initial episode of postERCP pancreatitis on 07/30/2020 following a procedure for ERCP and EUS that ultimately diagnosed hispancreatic adenocarcinoma. His course was complicated by portal vein thrombosis and Streptococcus anginosus bloodstream infection. He was treated with a 6 week course of antibiotics, 1st with ceftriaxone but transition to ertapenem due to rising LFTs. He was also admitted from 10/01/2020 through 10/02/2020 for abdominal pain and fever, for which he underwent ERCP on 10/01, his previous stents were patent however there is a localized biliary stricture in the common bile duct which received treatment with a bare metal stent. Following the initial diagnosis of pancreatic adenocarcinoma on 07/29/2020, he was evaluated in the [facility]. It was ultimately decided to start gemcitabine and paclitaxel chemotherapy, with his 1st dose being on 10/16/2020. He was later re admitted from 10/18/2020-10/22/2020 after he presented with fever. He was started on pip/josef (10/18-10/19) due to recurrence of his abscess. Abdominal CT showed extensive residual multiloculated fluid collection in the pancreas bed/left upper quadrant slightly decreased in size. At the time, it was felt that the loculated fluid collections were not mature enough for endoscopic drainage. After discharge on 10/23, patient called to report heart palpitations. Upon ED arrival, he was afebrile, noted non pitting edema 1+ during physical exam. CT angiogram was negative for PE. CT A/P noted complicated fluid and gas collections along the greater curvature of the stomach and adjacent to the s pleen, suspicious for infection. Patient was started on IV pip/josef (10/23- present). GI consulted andpatient underwent on 10/26 EUS. Endoscopic findings include a small spontaneous fistula found in theposterior proximal body of the stomach with spontaneous pus and blood emanating from the area. Endosonographic finding revealed multiple tubal, anechoic structures around the common bile duct consistent with varices, no active bleeding. A shadowing lesion suggestive of a fluid collection was identified in the pancreatic body. Air due to spontaneous fistula prohibited visualization of the deeper structures for a metal stent cystgastrostomy. A double pigtail stent was placed in the cavity through the spontaneous fistula. Large amounts of pus emanated from the stent. Due to significant pus, a second double pigtail stent into this area was successfully placed in the cavity. Fluid was not aspirated for culture as it was contaminated with stomach randy from spontaneous fistula. Per team, these drain s are draining the necrotic cavity, but given the gaseous obscuring of the surrounding and uncertainty if these were in the peritoneum, CT scan was obtained that revealed 2 pigtail catheters with proximal ends in the stomach fundus, extending through the presumed gastric-cyst fistula, and descending in feriorly along the left abdomen, confirming placement of stents. Plan for necrosectomy today. Patient reports feeling well, feels hungry and has a lot of gas. Afebrile, no abdominal pain. He hasbeen hemodynamically stable, afebrile. WBC of 10.1. Planning for necrosectomy today. The following portions of the patient's history were reviewed and updated as appropriate: allergies,social history, surgical history, current medications, family history, problem list and medical history Constitutional: Negative for fever and loss of appetite. Respiratory: Negative for dry cough. Gastrointestinal: Positive for constipation. Negative for abdominal (belly) pain or cramping, diarrhea, nausea and vomiting. OBJECTIVE PHYSICAL EXAMINATION Vital Signs: I have reviewed the current vital sign data as applicable. Cardiovascular Rate and Rhythm: Normal rate and regular rhythm. Pulmonary Breath sounds: Normal breath sounds. No wheezing. Abdominal General: Bowel sounds are normal. Palpations: Abdomen is soft. Tenderness: There is no abdominal tenderness. Comments: BS increased DIAGNOSTICS: I have reviewed diagnostics. Studies of note include: Results from last 7 days Lab Units 10/29/2043110/28/2040610/26/208 10/26/20 0418 10/25/20 0726 WBC x10(9)/L 10.1* 11.2* < > 10.1* 10.2* HEMOGLOBIN g/dL 8.8* 9.2* < > 9.1* 8.0* PLATELETS AUTO x10(9)/L 426* 424* < > 297 192 LYMPHS ABSOLUTE x10(9)/L -- -- -- 0.86* 0.96 EOS ABS AUTO x10(9)/L -- -- -- 0.04 0.04 MONOS ABS AUTO x10(9)/L -- -- -- 1.13* 1.24* BASOS ABS AUTO x10(9)/L -- -- -- <0.03 <0.03 BASOS MAN DIFF % 1 -- -- -- -- < > = values in this interval not displayed. Results from last 7 days Lab Units 10/29/2043110/28/2040710/27/20 04210/25/20 0726 10/25/20 0726 SODIUM mmol/L 135 138 136 < > 136 CREATININE mg/dL 0.92 1.01 0.93 < > 0.98 MAGNESIUM mg/dL -- -- 2.2 -- 2.2 ALT U/L -- -- 15 -- 11 BILIRUBIN TOTAL mg/dL -- -- 0.4 -- 0.6 < > = values in this interval not displayed. Estimated Creatinine Clearance: 92.6 mL/min (by C-G formula based on SCr of 0.92 mg/dL). No results found for: QTCINT, CODEDDIAG ANTIMICROBIALS ??? nystatin, 500,000 Units, 4x Daily ??? piperacillin-tazobactam, 3.375 g, Q6H ASSESSMENT / PLAN 1. Large peripancreatic infected pancreatic fluid collection w/spontaneous gastric-cyst fistula s/p two double pigtail stents across the fistula with draining pus on 10/26. 2. Pancreatic adenocarcinoma s/p cycle 1 of gemcitabine/paclitaxel chemotherapy on October, 3. History of strep anginosus BSI complicated by septic portal vein thrombus 4. History of necrotizing pancreatitis s/p 6 weeks of IV antibiotic therapy, EOT 09/23 5. Gastric varices DISCUSSION Mr. Campbell is a 55 year old man with history of pancreatitis s/p ERCP found to have pancreatic adenocarcinoma via EUS complicated by necrotizing pancreatitis, strep anginosus bloodstream infection in 08/2020 and most recently admitted due to infected necrotizing pancreatitis. He is currently on pip/tazthat we will continue while in patient and planning to transition to IV ertapenem. Patient has a spontaneous gastric-cyst fistula with two dobule pigtail stents that are controlling the infected fluid collection. Plans for necrosectomy today. Pending on source control, we will determine duration. If source control is obtained with necrosectomy, tentative duration of antibiotic therapy 7-10 based on cu lture data, likely IV therapy, if no source control and planning future necrosectomies, we tentatively can treat for [address] A/P. Estimated Creatinine Clearance: 92.6 mL/min (by C-G formula based on SCr of 0.92 mg/dL). RECOMMENDATIONS: 1. Continue IV pip/josef 3.375 g Q 6 hrs 2. While on IV antibiotics, please obtain bi weekly CBC with differential, serum creatinine, and ALT 3. Pending on necrosectomy to determine duration of antibiotic therapy. Treatment plan reviewed with Mr. Campbell, who expressed understanding. All questions answered to patient's satisfaction. Discussed with Dr. Pierre. We will follow along closely. Please page the [facility] service pager at [phone] with questions. Thank you for the consultation. Discussed with Dr. Pierre. Counseling was provided [id number] at bedside regarding the plan of care as stated above. I personally spent over half of a total 20 minutes in counseling and coordination of care as documented above. Renetta Urban M.D. LOGY REP SPECIALIST Associated attestation - Tamra Pierre M.D. - 10/29/2020 5:50 PM ONCOLOGY REP SPECIALIST I saw and evaluated the patient, participating in the patel portions of the service. I reviewed the resident/fellow???s note. I agree with the resident/fellow???s findings and plan. The patient was found to have increase in the size of multifocal peripancreatic fluid collections related to necrotizing pancreatitis with new extensive gas formation. Endoscopy showed a small spontaneous fistula in the posterior proximal body of the stomach with pus and blood emanating from the area.A stent was placed and large amounts of pus were drained. The patient went for necrosectomy today. Iwas contacted by the endoscopist, Dr. Adam Simpson. Since there is a fistulous communication betweenthe collection in the stomach, the fluid is expected to be contaminated with gastric randy. Cultureswere not obtained. We will continue empiric treatment with piperacillin/tazobactam. After hospital discharge, can transition to ertapenem. Duration of treatment will depend on follow-up imaging and further need for necrosectomy. MD Jose Vick Lawrence A, M.D. - 10/23/2020 4:41 PM CST SUBJECTIVE REASON FOR CONSULT Pain, chest, atypical. REFERRAL SOURCE [facility] HISTORY OF PRESENT ILLNESS I have had the privilege to review the history, physical examination findings, and management plans as documented by Dr. Miranda So in her note dated today. ASSESSMENT / PLAN #1 Pancreatic cancer #2 Infected pancreatic necrosis #3 Sepsis secondary to #2 #4 Microcytic anemia with Hemoccult-positive stool, suspect related to gastrointestinal bleed loss #5 Change in mental status, possible delirium Mr. Campbell is familiar to me from prior consultation. He was readmitted today with hypotension and fever with current temperature at 38.[address] imaging of the abdomen and pelvis with IV contrast demonstrates changes of necrotizing pancreatitis with increase in quantity of fluid collectionand gas. Laboratory tests demonstrate anemia with hemoglobin of 7.6 g/dL and white blood cell count at 11,100 with left shift. BUN/creatinine ratio was at the upper limit of normal at 15/0.79, and albumin is low at 2.1 g/dL. Transaminases and bilirubin and lipase are essentially normal. The patient's hemodynamics have improved with fluid resuscitation and initiation of broad spectrum antibiotic coverage with piperacillin/tazobactam. If he remains stable, then plan for EGD/EUS/ERCP guided endoscopic transgastric drainage procedure on Monday as per our Complex Endoscopy colleague, Dr. Cassidy. If he does not have continued favorable response to current resuscitation measures, then he would require emergent percutaneous drainage by Interventional Radiology. With regard to the patient's anemia, currently he is between 7 and 8 g/dL, which is a reasonable threshold to provide him with a blood transfusion. If signs or symptoms of more overt gastrointestinal bleeding occur, then please contact GI Bleed team over the weekend. Finally, with regard to his altered mental status/hallucination,this may be related to delirium, but CT imaging of the head should be considered to exclude potential metastatic disease. Albert Garcia M.D. CT CT Job ID: [id number] LOGY REP SPECIALIST Miranda So M.D. - 10/23/2020 1:22 PM CSTAssociated Order(s): IP CONSULT TO GASTROENTEROLOGY Gastroenterology Consult Note SUBJECTIVE CHIEF COMPLAINT Mr. Adam Campbell is a 55 y.o. male who presents with abdominal pain and sepsis. HISTORY OF PRESENT ILLNESS 55-year-old gentleman who re-presented with abdominal pain, generalized weakness, concerning for sepsis. His past medical history is significant for pancreatic adenocarcinoma with associated common bile duct stricture status post ERCP and bare metal stent on 07/29/20, complicated by development of post ERCP necrotizing pancreatitis with associated fluid collections and subsequent infection, and portal vein and splenic vein thrombosis on anticoagulation. We are being asked to weigh in on the possibility of necrosectomy. Please see the GI note from 10/21/2020 for additional details about his previous hospitalization. Briefly, this gentleman was hospitalized from 10/18 to 10/22 after developing worsening abdominal pain in the context of his necrotizing pancreatitis. He had had a repeat CT scan of the abdomen on 10/17 [facility] for additional infection of some of the peripancreatic fluid collections. This showed improvement in his overall peripancreatic fluid without any sort of gas collection suggestive of infection. Hecompleted 48 hours of Zosyn for antibiotic coverage and was taken off of that, with the idea that hewas not acutely infected. At that time, the idea had been to not do any additional intervention in the acute setting for the peripancreatic fluid, which had been improving. He was noted to be severely constipated, and this was thought to be contributing to his overall presentation. He received an aggressive bowel regimen and ultimately ended up improving in his abdominal pain and nausea. During his hospitalization, he had a slight spike in temperature up to T-max of 37.9at one point. He was subsequently discharged yesterday on 10/22 with improved symptoms. After he charged home and took some pain medications, he felt like he was ???drunk and could not walk. At one point, he developed some worsening chest and abdominal pain, and [facility]. They repeated a CT abdomen pelvis which demonstrated an interval increase in the size of the peripancreatic fluid collections in addition to new extensive gas within these segments, very suspicious fornew infection. His blood pressure has been on the softer side with systolics in the 80s to 90s, he was fluid resuscitated with 2 L in admitted to the ICU due to concern for sepsis. He has been placed on Zosyn, and has spiked a fever up to 38.1. On interview today, he is endorsing abdominal pain and is seeing ???gnats floating above us. I have reviewed and updated the following: Past Medical History: Diagnosis Date ??? Adjustment Disorder Mixed Reaction ??? Bacteremia 08/15/2020 ??? Carpal Tunnel Syndrome Right ??? Dysfunction Erectile 08/18/2020 ??? Gastroesophageal Reflux Disease NOS 10/31/2012 ??? Malignant Neoplasm Of Pancreas (HCC) 07/30/2020 ??? Murmur Heart 11/28/2010 Echocardiogram done on 03/20/2008. ??? Pancreatitis Post Endoscopic Retrograde Cholangiopancreatography (HCC) 07/30/2020 ??? Portal Vein Thrombosis 08/18/2020 ??? Varicocele left, treated with embolization of gonadal vein Past Surgical History: Procedure Laterality Date ??? BREAST CYST EXCISION Right ??? CARPAL TUNNEL RELEASE ??? CIRCUMCISION N/A Circumcision ??? IR GONADAL VEIN EMBOLIZATION Left ??? TONSILLECTOMY AND ADENOIDECTOMY N/A Tonsillectomy and adenoidectomy ??? TRIGGER FINGER RELEASE ??? VASECTOMY N/A Vasectomy Family History Problem Relation Age of Onset ??? Lung cancer Maternal Grandmother Social History Socioeconomic History ??? Marital status: Spouse name: Shaniqua ??? Number of children: 2 ??? Years of education: None ??? Highest education level: 11th grade Occupational History ??? 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 Financial resource strain: Not very hard ??? Food insecurity Worry: Never true Inability: Never true ??? Transportation needs Medical: No Non-medical: No Tobacco Use ??? Smoking status: Never Smoker ??? Smokeless tobacco: Never Used Substance and Sexual Activity ??? Alcohol use: Never Frequency: Never ??? Drug use: Never ??? Sexual activity: None Lifestyle ??? Physical activity Days per week: 0 days Minutes per session: 0 min ??? Stress: Not at all Relationships ??? Social connections Talks on phone: More than three times a week Gets together: Never Attends religion service: Never Active member of club or organization: No Attends meetings of clubs or organizations: Never Relationship status: ??? Intimate partner violence Fear of current or ex partner: None Emotionally abused: None Physically abused: None Forced sexual activity: None Other Topics Concern ??? None Social History Narrative ??? None Allergies Allergen Reactions ??? Ranitidine Hcl Diarrhea Current Outpatient Medications on File Prior to Encounter Medication Sig Last Dose ??? oxyCODONE (ROXICODONE) 10 mg IR tablet Take 1 tablet (10 mg total) by mouth every 3 (three) hours as needed for moderate pain or score 4-6 of 10 or severe pain or score 7-10 of 10 Indication: Chronic Pain/Nonacute Pain. 10/22/2020 at Unknown time ??? acetaminophen (TYLENOL) 500 mg tablet Take 1 tablet (500 mg total) by mouth every 6 (six) hours. ??? enoxaparin (LOVENOX) 80 mg/0.8 mL injection Inject 0.8 mL (80 mg total) under the skin 2 (two) times a day. ??? [] magnesium citrate (CITROMA) solution Take 296 mL by mouth once for 1 dose. ??? ondansetron (ZOFRAN) 8 mg tablet Take [...] 240 mLs (8 ounces) of beverage. ??? prochlorperazine (COMPAZINE) 10 mg tablet Take 1 tablet (10 mg total) by mouth every 6 (six) hours as needed for nausea or vomiting. ??? sennosides-docusate sodium (SENOKOT-S) 8.6-50 mg per tablet Take 3 tablets by mouth 2 (two) times a day. ??? [DISCONTINUED] LORazepam (ATIVAN) 0.5 mg tablet Take 1 tablet (0.5 mg total) by mouth 3 (three) times a day as needed for anxiety. REVIEW OF SYSTEMS Pertinent items are noted in HPI; all other review of systems was negative. OBJECTIVE VITAL SIGNS Temperature: [36.5 ??C-38.1 ??C] 38.1 ??C Heart Rate: [83-99] 92 Resp Rate: [11-23] 20 Blood Pressure: (86-113)/(55-80) 101/68 SpO2: [93 %-100 %] 99 % Height: [179.7 cm] 179.7 cm Weight: [72.8 kg] 72.8 kg BSA (Calculated - sq m): [1.9 sq meters] 1.9 sq meters BMI (Calculated): [22.5 kg/m??] 22.5 kg/m?? Pulse Rate: [83-100] 92 PHYSICAL EXAM: General: Alert and oriented, in no acute distress, sitting comfortably. HEENT: Normocephalic atraumatic. Sclera anicteric. Cardiovascular: Borderline tachycardic. Lungs: Breathing comfortably on room air. Abdomen: Non-distended, tender in all 4 quadrants. Extremities: No edema. Skin: Warm, dry. No visualized lesions. Psych: Somnolent, having active visual hallucinations. DIAGNOSTICS I have reviewed the labs and diagnostics from admission. Recent Labs 10/23/20 0548 10/23/20 0407 10/22/20 0623 NA -- 132 L 134 L CL -- 97 L 99 BICARB -- 28 27 MG -- -- 2.1 CALCIUM -- 7.9 L 7.6 L BUN -- 12 15 CREATININE -- 0.73 L 0.79 GLUCOSE -- 124 88 ALBUMIN 2.1 L -- -- HGB -- 7.6 L 8.4 L HCT -- 23.3 L -- WBC -- 11.1 H 6.5 PLT -- [address] Abdomen Pelvis with IV Contrast Final Result 1. 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 2. Small left pleural effusion with compressive atelectasis in the left base is again seen. CT Head without IV Contrast Final Result No acute intracranial findings. CT Chest Angiogram and Pulmonary Arteries with IV Contrast Final Result 1. Negative for acute pulmonary embolism. 2. Complicated fluid and gas collections along the greater curvature of the stomach and adjacent to the spleen, suspicious for infection. 3. Small left pleural effusion. 4. Atelectasis in the lung bases. DX Chest Portable 1 View Final Result Compared with the chest radiograph of 08/12/2020. Lower lung volumes and increased left greater the right basilar opacities, most likely due to atelectasis, although infection cannot be excluded. No other significant change. Small left pleural effusion. Partially visualized common bile duct stent. ASSESSMENT / PLAN 55-year-old gentleman with pancreatic cancer and necrotizing pancreatitis who re-presented with abdominal pain, generalized weakness, concerning for sepsis in the setting of likely infected peripancreatic fluid collections. He is readmitted with clear signs of infection with enlarging fluid pockets in the abdomen with new gaseous elements seen. The team has already started him on Zosyn for antibiotic coverage, and are asking about possible necrosectomy. We discuss with the advanced endoscopist, and at this time, we couldmove forward with EUS/ERCP on Monday for drainage of the infected collections. He is clinically stable for the time being, but if does not respond to antibiotics and has a worsening clinical picture, we may need to undergo percutaneous drainage with IR over the weekend. Additionally, he reportedly was Hemoccult-positive in the ED and has a dropping hemoglobin of 7.6 today. It is not clear that he has coronary disease, but he does have previous ischemic appearing EKGs,suggesting that this may still be a possibility. From our standpoint, we would recommend management for the time being with IV PPI, we will take a look on Monday with EGD as well to ensure that there is no active areas of bleeding on the scope. On a small note, he does have some erythema of his right arm at the site where he previously had potassium extravasate, which is becoming quite painful. There is also the possibility that he might havea superficial clot here. Recommendations: 1. Please order an EGD, EUS/ERCP for necrosectomy to be done on Monday. Please also indicate that there is also a concern for GI bleed for indication for EGD. 2. IV PPI b.i.d. Continue to monitor hemoglobin, consider transfusion. 3. US of the upper extremity to look for blood clot. Miranda So MD PGY-2 Department of Internal Medicine Pager [phone] [facility] SPECIALIST Margarita Jerez APRN, C.N.P., M.S.N. - 10/23/2020 10:37 AM CST SUBJECTIVE Consults REASON FOR CONSULT Adam Campbell is a 55 y.o. male who presents with hypotension and generalized weakness. HISTORY OF PRESENT ILLNESS Mr. Campbell is a 55 year old gentleman with PMH significant for pancreatic cancer who was discharged yesterday from the hospital after being treated for acute abdominal pain. Unfortunately he went home last night and became increasingly weak, stumbling into the colon and slurring his speech, he began having visual hallucinations and just feeling generally unwell. This morning he presented back to the ED where he was found to be hypotensive. He was given 2 L crystalloid, blood cultures drawn, and started on zosyn. A CT abdomen showed worsening necrotizing pancreatitis and worsening fluid collection with new extensive gas concerning for infection. He was subsequently transferred to the ICU for further monitoring. Upon arrival to the ICU he is hemodynamically stable and in sinus rhythm. We will continue fluid resuscitation given pancreatitis and likely infected fluid collection. General surgery will be consultedto weigh in on any surgical options. We will continue antibiotics at this time. If he remains stableover the next couple of hours we will transfer him to the general care floor. The following portions of the patient's history were reviewed and updated as appropriate: allergies,current medications, medical history and problem list. REVIEW OF SYSTEMS Constitutional: Positive for fatigue. Eyes: Positive for visual problems. Cardiovascular: Positive for chest pain, pressure or tightness and swelling in the legs or feet. Gastrointestinal: Positive for abdominal (belly) pain or cramping. Neurological: Positive for loss of balance or tendency to fall easily, slurred speech and weakness in arms or legs. OBJECTIVE VITAL SIGNS I have reviewed the current vital sign data as applicable to this consultation. PHYSICAL EXAM Constitutional General: He is not in acute distress. Appearance: He is ill-appearing. Eyes Pupils: Pupils are equal, round, and reactive to light. Comments: Mentions seeing black spots. Cardiovascular Rate and Rhythm: Normal rate and regular rhythm. Heart sounds: Normal heart sounds. Pulmonary Effort: Pulmonary effort is normal. Breath sounds: Normal breath sounds. Abdominal Palpations: Abdomen is soft. Tenderness: There is abdominal tenderness. Skin General: Skin is dry. Coloration: Skin is pale. Neurological Mental Status: He is alert. DIAGNOSTICS I have reviewed relevant laboratory, imaging, and other diagnostics as applicable to this consultation. ASSESSMENT / PLAN #1 Abdominal Pain #2 Gastroesophageal Reflux Disease NOS #3 Malignant Neoplasm Of Pancreas (HCC) #4 Portal Vein Thrombosis #5 Acute Pancreatitis With Infected Necrosis Unspecified (HCC) #6 Pain Chest Atypical #7 Hypotension #8 Visual Hallucinations 1. Neuro: Reports visual hallucinations that started last evening. Will continue to monitor this as I have no real explanation for as a cause. Will hold on opioids at this time. 2. Cardiovascular: Hemodynamically stable and currently in sinus rhythm. Continue to monitor. Replace electrolytes PRN. All vascular access sites appear healthy and non-infected and are required for ongoing care. 3. Pulmonary: Will continue to monitor closely. Encourage pulmonary hygiene. 4. Renal: Continue to monitor urine output. 5. GI/Endocrine: Continue bowel regimen. Continue to monitor glucose. General diet. Continue PPI. CTscan in ED showed worsening necrotizing pancreatitis with worsening fluid collections. General surgery consulted to weigh in on surgical possibilities. 6. Hem: Transfuse as indicated. DVT prophylaxis continues with SQ lovenox. Lovenox will continue if no surgical interventions required for known portal vein thrombosis. 7. ID/Skin: Will continue antimicrobial coverage with zosyn. Blood cultures pending. 8. Code Status: Full Code 9. Disposition: Will monitor PCU at this time and if he remains stable will transfer to [facility] later today. 10. Medication reconciliation done [facility] REP SPECIALIST documented in this encounter Nursing Notes Elizabeth Tee R.N. - 10/30/2020 7:16 PM CST Problem: PAIN - ADULT Goal: PT VERBALIZES/DEMONSTRATES [...] injury Outcome: Adequate for Discharge Shift Goals: Clinical Goals for the Shift: Discharge patient Identify possible barriers to meeting goals/advancing plan of care: Medication delivery; Transportation End of Shift Summary: Patient discharged home with [facility] services. Ertapenem delivered to patient's room by [facility]. Patient will self- administer antibiotic at home. Education provided and IV extension tubing applied prior to discharge. PICC line and lab work to maintained by [facility]. Report called; verified with primary service that lab work and PICC orders were faxed. Home-going education provided; Patient able to teachback all education. VSS and pain controlled with baseline pain regimen. Escort utilized. Patient to be transported home with and 's PRACTICE PERFORMANCE MANAGER. LOG[facility] REP SPECIALIST Lakshmi Greco R.N. - 10/30/2020 2:35 PM CST Problem: PAIN - ADULT Goal: PT VERBALIZES/DEMONSTRATES ADEQUATE COMFORT LEVEL OR BASELINE Outcome: Progressing Problem: KNOWLEDGE DEFICIT Goal: Patient/family/caregiver demonstrates understanding of disease process, treatment plan, medications, and discharge instructions Outcome: Progressing Problem: SAFETY ADULT Goal: Maintain a safe environment Outcome: Progressing Shift Goals: Clinical Goals for the Shift: VSS, pain management Identify possible barriers to meeting goals/advancing plan of care: none End of Shift Summary: VSS, patient reported abdominal pain this morning, relieved with PRN oxy. Patient ambulated in the halls with standby assist using the walker. Patient also given tums for stomachache, with some relief. Nursing will continue to monitor. Plan for PICC placement prior to dismissal. Homegoing supplies will be delivered to the hospital today and sent home with patient. Nursing will continue to monitor. Nikki Coleman R.N. - 10/28/2020 6:47 PM CST Shift Goals: Clinical Goals for the Shift: Patient will report adequate pain management. Identify possible barriers to meeting goals/advancing plan of care: None End of Shift Summary: Patient appeared upset this morning due to the delay of his procedure however through active listening and encouragement patient's mood improved. Patient ambulated in room ad sam and took a shower today. Nurse provided bowel regimen; without success today. Patient appears contentat this time. Continue pain management. Problem: PAIN - ADULT Goal: PT VERBALIZES/DEMONSTRATES [...] Goal: Patient discharge needs identified Outcome: Progressing Problem: SAFETY ADULT - RISK FOR FALL AND OR FALL INJURY Goal: Patient remains free from fall/fall injury Outcome: Progressing [facility] REP SPECIALIST Maddy Morales R.N. - 10/28/2020 8:04 AM CST Problem: PAIN - ADULT Goal: PT VERBALIZES/DEMONSTRATES ADEQUATE COMFORT LEVEL OR BASELINE Outcome: Progressing Problem: KNOWLEDGE DEFICIT Goal: Patient/family/caregiver demonstrates understanding of disease process, treatment plan, medications, and discharge instructions Outcome: Progressing Problem: INFECTION - ADULT Goal: Absence of infection during hospitalization Outcome: Progressing Shift Goals: Clinical Goals for the Shift: VSS, pain control Identify possible barriers to meeting goals/advancing plan of care: none identified End of Shift Summary: Patient verbalized frustration on the delay of planned procedure today. VSS. Service made aware. Complained of gas pain and back pain this morning but otherwise had a restful night. Patient emotional about length of stay in the hospital and verbalized just wanting to be comfortable. Described pain as fluid running in his abdomen when he turns in bed. Reassured and comforted. Endorsed to day shift. Made comfortable in bed. LOG[facility] REP SPECIALIST Christianne Gimenez RRiazNRiaz - 10/27/2020 10:17 PM CST Shift Goals: Clinical Goals for the Shift: VSS, pain control Identify possible barriers to meeting goals/advancing plan of care: None End of Shift Summary: VSS. Pain reported at a tolerable level throughout shift, denied need for painmedication. Pt ambulated x1 in hallway, tolerated well. Jackie Mayfield RMariajose - 10/27/2020 3:01 PM CST Problem: PAIN - ADULT Goal: PT VERBALIZES/DEMONSTRATES [...] Goal: Patient discharge needs identified Outcome: Progressing Problem: SAFETY ADULT - RISK FOR FALL AND OR FALL INJURY Goal: Patient remains free from fall/fall injury Outcome: Progressing Shift Goals: Clinical Goals for the Shift: pain control, ambulate Identify possible barriers to meeting goals/advancing plan of care: none End of Shift Summary: Patient ambulated x2 and sat in chair. Pain was controlled with PRN oxy. Maddy Prince R.N. - 10/26/2020 9:28 PM CST Problem: PAIN - ADULT Goal: PT VERBALIZES/DEMONSTRATES ADEQUATE COMFORT LEVEL OR BASELINE Outcome: Progressing Problem: KNOWLEDGE DEFICIT Goal: Patient/family/caregiver demonstrates understanding of disease process, treatment plan, medications, and discharge instructions Outcome: Progressing Problem: INFECTION - ADULT Goal: Absence of infection during hospitalization Outcome: Progressing Problem: SAFETY ADULT Goal: Maintain a safe environment Outcome: Progressing Shift Goals: Clinical Goals for the Shift: VSS; Restful sleep Identify possible barriers to meeting goals/advancing plan of care: Patient frustrated about not being allowed to eat End of Shift Summary: Received patient awake in bed s/p CT. VSS after bolus of LR given IV. Instructed on NPO then allowed only clear liquids by GI service. Patient frustrated and wanted to eat crackers. Service made aware of patient's request. Education about risks given by RN at bedside. Emotional support given. IV fluids started. Denied pain. Patient then understood the reasons for restrictions onoral feeding. IV Protonix given per order which was effective. Nursing will continue to monitor. Made comfortable in bed. Anya Montgomery R.N. - 10/26/2020 6:06 AM CST Shift Goals: Clinical Goals for the Shift: VSS, sleep, manage pain/nausea Identify possible barriers to meeting goals/advancing plan of care: None End of Shift Summary: Pt and vitals stable overnight. Pt had no c/o pain or nausea throughout shift.Pt requested xanax before bed, and slept very well and said he felt well rested this AM. Pt has not had BM yet for c.diff sample. Pt called appropriately and remained free from injury. Plan is for pt to have ERCP/EGD done today. [employer] REP SPECIALIST Anya Ventura R.N. - 10/25/2020 6:18 AM CST Shift Goals: Clinical Goals for the Shift: Manage nausea, VSS Identify possible barriers to meeting goals/advancing plan of care: Nausea, anxiety End of Shift Summary: Pt did not have a great start to the evening. Pt was suffering from uncontrolled nausea, sx ordered IV phenergan which caused pt to be extremely restless and anxious, unable to sit still and sleep. Sx then ordered 50mg trazadone, that did not help, sx ordered another 50mg of trazadone and yet pt was still unable to sleep. Pt then was also c/o pain d/t flare up of pancreatitis and requested oxy. RN got a hold of sx and also let them know that he has not slept yet. Sx also ordered xanax. RN gave oxy and xanax and pt then seemed to have finally fell asleep around 0100. Pt also received fluids overnight d/t pt request and feeling dehydrated. Pt called appropriately and remained free from injury overnight. LOG[employer] REP SPECIALIST documented in this encounter ED Notes Tawanda Franco M.D. - 10/30/2020 7:16 PM CST I have personally seen and examined this patient. I have fully participated in the care of this patient. I have reviewed all clinical information including history, physical exam, orders, and plan. I agree with the note of the resident. ED Course as of Nov 17 241MonOct 23, 2020 0441 No definite cause found on the xray Final Diagnoses: as of Nov 17 241 Pain Chest Atypical Lower Abdominal Pain Unspecified Sepsis (HCC) Acute Pancreatitis With Infected Necrosis Unspecified (HCC) Malignant Neoplasm Of Pancreas Adenocarcinoma (HCC) Hypotension Mr. Campbell is a 55 year old man with a history of pancreatic cancer, portal and splenic vein thromboses on anticoagulation (Lovenox) presenting because of sharp, non-radiating, severe, pleuritic pain inthe left chest. We will evalaute for ACS with sequential troponins, PE with CT imaging, get chest imaging among other tests. As his SBP is lower, we will give IVF. We will also give aspirin. Disposition remains unclear. REEVALAUTION: - His troponin is okay. Will get repeat. - he is anemic but not significantly different than before - CT is pending - Signed out to oncoming team Tawanda Franco M.D. 11/17/207 LOG[facility] REP SPECIALIST Mary Busch P.A.-C. - 10/23/2020 9:21 AM CST Adam Campbell is a 55 y.o. male with a pertinent medical history of pancreatic cancer, portal vein thrombosis, Pancreatitis Post Endoscopic Retrograde Cholangiopancreatography presents today for pleuritic chest pain and lower quadrant abdominal pain. Labs remarkable for acute anemia with hemoglobin dropping from a 8.4-7.6, leukocytosis with left shift which appears to be new compared to previous labs. [place] exam was performed by myself and patient was Hemoccult positive. Patient received IV Protonix. Acute hyponatremia which appears to be new compared to previous labs. Due to patient has no history CAD blood transfusion was held. CT was remarkable for Interval increase in size of multifocal peripancreatic fluid collections related to necrotizing pancreatitis with new extensive gas concerning for infection. I have contacted Hepatobiliary surgical services to update about CT finding and potential consult when patient arrived to the floor. Sepsis protocol was initiated due to patient low blood pressure. Patient received fluid challenge, blood cultures collected and IV antibiotics Zosyn was administered. My provider contracting consultant had contacted Oncology ICU fellow about patient's status and agreed to admit patient to his service. Patient was admitted to ICU for further evaluation management. Handoff was ismael abrams. Patient was updated about plans/disposition using every day language and he voiced understanding agree with plan/management. VITAL SIGNS BP (!) 89/62 Pulse 86 Temp 36.5 ??C (Oral) Resp 20 Wt 72.8 kg SpO2 97% BMI 22.54 kg/m?? ED Course as of Oct 23 1650 Fri Oct 23, 2020 0731 Spoke with Oncology Service about patient's status, new findings on imaging, physical exam and positive Hemoccult exam. She advised that patient had similar physical exam finding was during admission. GI was consult but they deferred surgery at this time continue medical management. If patient condition worsen surgeries possibility. 0745 Hemoccult exam completed stool is brown in nature with no blood noted but is Hemoccult positive. 0755 Contacted GI bleeding about patient's status, labs, findings with Hemoccult and imaging. He advised that I should contact hepatobiliary surgery team to discuss patient case. 0802 Hepatic biliary services was was updated about patient's status, labs, findings on CT imaging and physical exam. I advised that they will be possibly consult once patient is admitted to Oncology ICU. Final Diagnoses: as of Oct 23 1650 Pain Chest Atypical Lower Abdominal Pain Unspecified Sepsis (HCC) Acute Pancreatitis With Infected Necrosis Unspecified (HCC) Malignant Neoplasm Of Pancreas Adenocarcinoma (HCC) Hypotension Mary Busch P.A.-C. 10/23/20 1704 LOGY REP SPECIALIST Benajmín Connell M.D. - 10/23/2020 6:44 AM CST Adam Campbell is a 55 y.o. male who presents with chest pain and abdominal pain. Patient's vital signs are notable at this point for blood pressures of 88/61, will proceed with fluid resuscitation. Given the complicated fluid and gas collection as well as his abdominal exam plan to discuss General surgery and likely admit. Patient is anemic. Will draw type and screen and reassess. At this point will also start antibioticsgiven the fluid collection. Patient has history of prolonged QT today his QT is 462. He has no history tree up of allergies to penicillins that I see therefore will start Zosyn. Have administered IV Fluids. VITAL SIGNS BP (!) 88/61 Pulse 94 Temp 36.5 ??C (Oral) Resp 17 Wt 72.8 kg SpO2 96% BMI 22.54 kg/m?? ED Course as of Oct 23 1814MonOct 23, 2020 0748 At this point we have discussed with Oncology, the patient was discharged essentially for this issue yesterday. I think that his vital signs indicate that he will need ICU level of care. I spoke with 10-3 provider contracting consultant who is in agreement. I discussed with the [facility] provider contracting consultant, given that he has beenadmitted to Oncology on medical therapy for this we both agreed that this could be continued for themoment though the [facility] service is happy to evaluate the patient in patient if his condition worsens in any way. I did note the patient's anemia. At this point he is not having active chest pain and hasno troponinemia. Given this constellation of symptoms our plan will be to defer transfusion. Updatedthe 10 3 provider contracting consultant who is in agreement. We will give Protonix given that the patient is Hemoccult positive. Final Diagnoses: as of Oct 23 1814 Pain Chest Atypical Lower Abdominal Pain Unspecified Sepsis (HCC) Acute Pancreatitis With Infected Necrosis Unspecified (HCC) Malignant Neoplasm Of Pancreas Adenocarcinoma (HCC) Hypotension Benjamín Connell M.D. 10/23/201816 LOGY REP SPECIALIST Damian Prajapati M.D., Ph.D. - 10/23/2020 3:59 AM CST SUBJECTIVE CHIEF COMPLAINT/REASON FOR VISIT Chest Pain and Abdominal Pain HISTORY OF PRESENT ILLNESS Mr. Campbell is a 55-year-old gentleman with a history of pancreatic cancer, portal vein thrombosis, and splenic vein thrombosis on Lovenox who presents with chest pain. Pain began at approximately 7:00 p.m. located in the left upper chest, comes and goes with inspiration, rated a 9/10, sharp, and does not radiate. He has not taken anything for the pain. He also reports shortness of breath, chills, dizziness, nausea, lower abdominal pain, diarrhea, fatigue, and weakness as well as a significant increase in thirst. Of note, patient was discharged within 24 hours prior to presentation where he had beenadmitted for abdominal pain that was thought to be related to extensive residual multiloculated fluid collections that had not worsened as well as excessive stool burden. He was started on aggressive bowel regimen and discharged home. On arrival home he felt palpitations and the pain described above prompting his return visit to the ED. REVIEW OF SYSTEMS Constitutional: Positive for chills, fatigue and fever. HENT: Negative for congestion, rhinorrhea and sore throat. Eyes: Positive for visual disturbance. Respiratory: Positive for shortness of breath. Negative for cough and chest tightness. Cardiovascular: Positive for chest pain. Negative for palpitations. Gastrointestinal: Positive for abdominal pain, diarrhea and nausea. Negative for constipation and vomiting. Endocrine: Positive for polydipsia. Genitourinary: Negative for dysuria, frequency and urgency. Musculoskeletal: Negative for myalgias and extremity pain. Neurological: Positive for dizziness, weakness and light-headedness. Negative for headaches. Psychiatric/Behavioral: Positive for confusion. OBJECTIVE Initial Vitals [10/23/20 0300] Temperature Pulse Rate Heart Rate Resp Rate Blood Pressure SpO2 36.5 ??C 100 99 16 90/62 100 % Pain Score 7 PHYSICAL EXAMINATION Constitutional: Nursing note and vitals reviewed. No distress. HENT: Head: Normocephalic and atraumatic. No signs of injury. Nose: Nose normal. No nasal discharge. Thrush Eyes: EOM are normal. Pupils are equal, round, and reactive to light. Neck: Normal range of motion. Cardiovascular: Regular rhythm. Tachycardia present. Murmur heard. Pulmonary/Chest: Effort normal and breath sounds normal. No tachypnea. No respiratory distress. He has no wheezes. He has no rhonchi. He has no rales. Abdominal: Soft. Bowel sounds are normal. He exhibits no distension. There is no abdominal tenderness. There is no rebound. Musculoskeletal: Normal range of motion. Edema present. Comments: Minimal 1+ nonpitting edema in lower extremities Neurological: He is alert and oriented to person, place, and time. Skin: Skin is warm, dry and normal color. He is not diaphoretic. Psychiatric: He has a normal mood and affect. His behavior is normal. ASSESSMENT/PLAN Mr. 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 and is pleuritic in nature. Initial vitals are significant for a tachycardia of 100 and hypotension with a systolic of 90. Exam is consistent with a tachycardia as well as a murmur which isnot new. He does have mild nonpitting edema bilaterally in the lower extremities. In his previous admission he did experience palpitations which prompted a cardiac workup which did not demonstrate any changes in troponins or wall motion abnormalities on echo. My differential diagnosis for chest pain and shortness of breath includes PE, ACS, pneumonia, COVID, and musculoskeletal pain. Despite patient is on Lovenox I am highly suspicious for a PE given recent cancer history though he is satting 100% on room air. Will initiate a broad workup including labs and imaging to evaluate for cardiac and infectious etiologies as well as PE. White blood cell count is elevated above baseline with left shift. Hemoglobin is stable. Initial troponin is within normal limits. EKG does not demonstrate any evidence of a STEMI or STEMI equivalents.Chest x-ray shows left greater than right basilar opacities which could be due to atelectasis or infection. CT does not demonstrate a PE but is concerning for a complicated fluid and glass collection along the greater curvature of the stomach which could represent infection. Thus, will obtain a CT of the abdomen to further evaluate. My shift has come to an end thus I have signed the patient out to the oncoming team. Please see their notes for ongoing documentation. I reviewed previous medical records including documentation from previous visits. I personally reviewed the lab result(s) and my interpretation is documented in ED Course. I personally reviewed the radiology image(s) and reviewed the radiology report(s). The Radiology exam interpretation(s) is/are documented in ED Course. ED Course as of Oct 24 1403MonOct 23, 2020 0455 Only slightly lower than baseline around 8. Hemoglobin(!): 7.6 0455 IMPRESSION: Compared with the chest radiograph of 08/12/2020. Lower lung volumes and increased left greater the right basilar opacities, most likely due to atelectasis, although infection cannot be excluded. No other significant change. Small left pleural effusion. Partially visualized common bile duct stent. DX Chest Portable 1 View 0501 Troponin T, Baseline, 5th gen: <6 0523 There are no acute findings. CT Head without IV Contrast 0541 2. Complicated fluid and gas collections along the greater curvature of the stomach and adjacent to the spleen, suspicious for infection. CT Chest Angiogram and Pulmonary Arteries with IV Contrast Final Diagnoses: as of Oct 24 1403 Pain Chest Atypical Lower Abdominal Pain Unspecified Sepsis (HCC) Acute Pancreatitis With Infected Necrosis Unspecified (HCC) Malignant Neoplasm Of Pancreas Adenocarcinoma (HCC) Hypotension Damian Prajapati M.D., Ph.D. Resident 10/24/20 1514 LOGY REP SPECIALIST documented in this encounter Miscellaneous Notes Hospital Course - John Christianson M.D. - 10/23/2020 1:07 PM CST 55M admitted for infected necrotic pancreatitis. 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 He eventually developed necrotizing pancreatitis and has had multiple previous admissions for this. He also has nonocclusive portal and splenic vein thromboses for which he has been on anticoagulation. He started chemotherapy (gemcitabine-paclitaxel) on 10/16. His most recent admission was 10/18-10/22 for abdominal pain. He was febrile during this admission although no clear infectious source was determined and antibiotics were discontinued. Peripancreatic fluid collections were noted although no intervention was performed. One day after discharge, he had mental status changes and symptoms concerning for infection and re-presented. Early in the admission, he was febrile and hypotensive with WBC up to 15. CT demonstrated continued peripancreatic fluid collections with new gas concerning for infection. He was treated with Zosyn and underwent endoscopic necrosectomy with GI on 10/26. Two double pigtail catheters were placed through a pre-existing fistula in stomach wall into the necrotic tissue with purulence material returned. He remained hemodynamically stable, afebrile, and white count trended down with treatment. On 10/29, he was brought back for repeat endoscopic necrosectomy, at which time an Axios stent was placed next to the 2 plastic stents that were previously placed. 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 Varices were again visualized during this procedure. He tolerated the procedure and diet was re-initiated. He was dismissed on 10/30. The plan is for repeat CT with necrosectomy with GI in a few days as well as outpatient IV ertapenemthrough a PICC line which was placed 10/30. He will follow-up with Infectious Disease on 11/11 at which time antibiotic duration will be determined. He was previously on therapeutic anticoagulation for his splenic and portal vein thromboses. This was discontinued at the time of dismissal due to upcoming procedure. Anticoagulation should be discussed after his next procedure. Exam at time of dismissal: General: No distress, comfortably resting on bed. HEENT: Normocephalic, atraumatic. Heart: Regular rate and rhythm, normal S1-S2, no murmurs. Lungs: Clear to auscultation bilaterally, no wheezing or crackles Abdomen: Normal bowel sounds, soft and nontender, mildly distended Extremities: No peripheral edema or deformities. Neuro: Alert and oriented, no facial droop or extremity weakness. Skin: No rash on visible skin. LOGY REP SPECIALIST documented in this encounter Plan of Treatment Upcoming Encounters Date Type Specialty Care Team Description 06/22/2022 Lab Laboratory Medicine Maria Del Rosario Gomez AP RN, C.N.P., M.S. [address] [place] [address] [phone] ([place] godoy) 06/22/2022 Infusion Oncology Maria Del Rosario Gomez APRN, C.N .P., M.S. [address] [place] [address] [phone] ([place] godoy) 06/29/2022 Lab Laboratory Medicine Maria Del Rosario Gomez AP RN, C.N.P., M.S. [address] [place] [address] [phone] ([place] godoy) 06/29/2022 Infusion Oncology Maria Del Rosario Gomez APRN, C.N .P., M.S. [address] [place], [place] [phone] (Wo rk) Scheduled Orders Name Type Priority Associated Diagnoses Order S chedule EGD GI Routine Once for 1 Occu rrences (EsophagealGastroDuodenos st arting 10/26/2020 until copy) 10/26/2020 ERCP GI Routine Once for 1 Occu rrences starting 2020 until 10/26/2020 Endoscopic ultrasound GI Routine Once f or 1 Occurrences (EUS) starting 2020 until 10/29/2020 documented as of this encounter Procedures Procedure Name Priority Date/Time Associated Comments Diagnosis PLACE PERIPHERALLY Routine 10/30/2020 3:09 Result s for INSERTED CENTRAL PM ONCOLOGY REP SPECIALIST this proced ure CATHETER (PICC) are in the results section. HEPATIC FUNCTION Routine 10/30/2020 4:25 Results for PANEL, S AM ONCOLOGY REP SPECIALIST this procedure are in the results section. CBC WITH Routine 10/30/2020 4:25 Results for DIFFERENTIAL, B AM ONCOLOGY REP SPECIALIST this procedu re are in the results section. PHOSPHORUS Routine 10/30/2020 4:25 Results for (INORGANIC), S AM ONCOLOGY REP SPECIALIST this procedur e are in the results section. MAGNESIUM, S Routine 10/30/2020 4:25 Results for AM ONCOLOGY REP SPECIALIST this procedure are in the results section. BASIC METABOLIC Routine 10/30/2020 4:25 Results f or PANEL, S/P AM ONCOLOGY REP SPECIALIST this procedure are in the results section. TROPONIN T, 2H/6H, Timed 10/29/2020 9:17 Result s for 5TH GEN, P PM ONCOLOGY REP SPECIALIST this procedure are in the results section. TROPONIN T, BASELINE, STAT 10/29/2020 7:34 Res ults for 5TH GEN, P PM ONCOLOGY REP SPECIALIST this procedure are in the results section. ECG STAT 10/29/2020 7:28 Results for PM ONCOLOGY REP SPECIALIST this procedure are in the results section. FL FLUORO LESS THAN 1 Routine 10/29/2020 3:23 Res ults for HOUR PM ONCOLOGY REP SPECIALIST this procedure are in the results section. ERCP Routine 10/29/2020 2:00 Results for PM ONCOLOGY REP SPECIALIST this procedure are in the results section. ERCP Routine 10/29/2020 2:00 PM ONCOLOGY REP SPECIALIST SPSMA RESULT Routine 10/29/2020 4:32 Results for AM ONCOLOGY REP SPECIALIST this procedure are in the results section. CBC WITH Routine 10/29/2020 4:32 Results for DIFFERENTIAL, B AM ONCOLOGY REP SPECIALIST this procedu re are in the results section. BASIC METABOLIC Routine 10/29/2020 4:32 Results f or PANEL, S/P AM ONCOLOGY REP SPECIALIST this procedure are in the results section. MAGNESIUM, S Routine 10/29/2020 4:30 Results for AM ONCOLOGY REP SPECIALIST this procedure are in the results section. BASIC METABOLIC Routine 10/28/2020 4:08 Results f or PANEL, S/P AM ONCOLOGY REP SPECIALIST this procedure are in the results section. SPSMA RESULT Routine 10/28/2020 4:07 Results for AM ONCOLOGY REP SPECIALIST this procedure are in the results section. CBC WITH Routine 10/28/2020 4:07 Results for DIFFERENTIAL, B AM ONCOLOGY REP SPECIALIST this procedu re are in the results section. HEPATIC FUNCTION Routine 10/27/2020 4:26 Results for PANEL, S AM ONCOLOGY REP SPECIALIST this procedure are in the results section. SPSMA RESULT Routine 10/27/2020 4:26 Results for AM ONCOLOGY REP SPECIALIST this procedure are in the results section. CBC WITH Routine 10/27/2020 4:26 Results for DIFFERENTIAL, B AM ONCOLOGY REP SPECIALIST this procedu re are in the results section. PHOSPHORUS Routine 10/27/2020 4:26 Results for (INORGANIC), S AM ONCOLOGY REP SPECIALIST this procedur e are in the results section. MAGNESIUM, S Routine 10/27/2020 4:26 Results for AM ONCOLOGY REP SPECIALIST this procedure are in the results section. BASIC METABOLIC Routine 10/27/2020 4:26 Results f or PANEL, S/P AM ONCOLOGY REP SPECIALIST this procedure are in the results section. CT ABDOMEN PELVIS RAD - Semiurgent 10/26/2020 6:40 Res ults for WITH IV CONTRAST (Fast; most ED PM ONCOLOGY REP SPECIALIST this proc edure patients; some are in the inpatients) results section. VRE PCR Routine 10/26/2020 5:33 Results for PM ONCOLOGY REP SPECIALIST this procedure are in the results section. FL FLUORO LESS THAN 1 Routine 10/26/2020 3:58 Res ults for HOUR PM ONCOLOGY REP SPECIALIST this procedure are in the results section. UPPER EUS Routine 10/26/2020 1:12 Results for PM ONCOLOGY REP SPECIALIST this procedure are in the results section. ENDOSCOPIC ULTRASOUND Routine 10/26/2020 1:12 (EUS) PM ONCOLOGY REP SPECIALIST ACTIVATED PARTIAL Routine 10/26/2020 4:18 Results for THROMBOPLASTIN TIME AM ONCOLOGY REP SPECIALIST this pro cedure (APTT), P are in the results section. PROTHROMBIN TIME Routine 10/26/2020 4:18 Results for (PT), P AM ONCOLOGY REP SPECIALIST this procedure are in the results section. CBC WITH Routine 10/26/2020 4:18 Results for DIFFERENTIAL, B AM ONCOLOGY REP SPECIALIST this procedu re are in the results section. TYPE AND SCREEN Routine 10/26/2020 4:18 Results f or AM ONCOLOGY REP SPECIALIST this procedure are in the results section. BASIC METABOLIC Routine 10/26/2020 4:18 Results f or PANEL, S/P AM ONCOLOGY REP SPECIALIST this procedure are in the results section. CBC WITH Routine 10/25/2020 7:26 Results for DIFFERENTIAL, B AM ONCOLOGY REP SPECIALIST this procedu re are in the results section. PHOSPHORUS Routine 10/25/2020 7:26 Results for (INORGANIC), S AM ONCOLOGY REP SPECIALIST this procedur e are in the results section. MAGNESIUM, S Routine 10/25/2020 7:26 Results for AM ONCOLOGY REP SPECIALIST this procedure are in the results section. COMPREHENSIVE Routine 10/25/2020 7:26 Results for METABOLIC PANEL, S/P AM ONCOLOGY REP SPECIALIST this pr ocedure are in the results section. US UPPER EXTREMITY RAD - Routine 10/24/2020 12:44 Resu lts for VEINS RIGHT (most inpatients PM ONCOLOGY REP SPECIALIST this proced ure and all are in the outpatients) results section. RENAL FUNCTION PANEL, Routine 10/24/2020 4:42 Res ults for S AM ONCOLOGY REP SPECIALIST this procedure are in the results section. CBC WITH Routine 10/24/2020 4:42 Results for DIFFERENTIAL, B AM ONCOLOGY REP SPECIALIST this procedu re are in the results section. CRITICAL CARE Routine 10/23/2020 6:17 Results for PM ONCOLOGY REP SPECIALIST this procedure are in the results section. SARS CORONAVIRUS 2, Routine 10/23/2020 11:36 Resu lts for MOLECULAR DETECTION, AM ONCOLOGY REP SPECIALIST this pr ocedure PCR, VARIES are in the results section. LACTATE, B/P Timed 10/23/2020 10:42 Results for AM ONCOLOGY REP SPECIALIST this procedure are in the results section. LACTATE, B/P STAT 10/23/2020 8:11 Results for AM ONCOLOGY REP SPECIALIST this procedure are in the results section. LACTATE, POCT, B STAT 10/23/2020 8:10 Results for AM ONCOLOGY REP SPECIALIST this procedure are in the results section. BACTERIA / MAXWELL STAT 10/23/2020 8:10 Result s for CULTURE, BLOOD AM ONCOLOGY REP SPECIALIST this procedur e are in the results section. BACTERIA / MAXWELL STAT 10/23/2020 8:10 Result s for CULTURE, BLOOD AM ONCOLOGY REP SPECIALIST this procedur e are in the results section. LACTATE, POCT, B Routine 10/23/2020 8:05 Results for AM ONCOLOGY REP SPECIALIST this procedure are in the results section. TYPE AND SCREEN STAT 10/23/2020 6:58 Results f or AM ONCOLOGY REP SPECIALIST this procedure are in the results section. CT ABDOMEN PELVIS RAD - Semiurgent 10/23/2020 6:04 Res ults for WITH IV CONTRAST (Fast; most ED AM ONCOLOGY REP SPECIALIST this proc edure patients; some are in the inpatients) results section. TROPONIN T, 2H/6H, Timed 10/23/2020 5:48 Result s for 5TH GEN, P AM ONCOLOGY REP SPECIALIST this procedure are in the results section. HEPATIC FUNCTION STAT 10/23/2020 5:48 Results for PANEL, S AM ONCOLOGY REP SPECIALIST this procedure are in the results section. LIPASE, S/P STAT 10/23/2020 5:48 Results for AM ONCOLOGY REP SPECIALIST this procedure are in the results section. CT CHEST ANGIOGRAM RAD - Semiurgent 10/23/2020 5:18 Re sults for AND PULMONARY (Fast; most ED AM ONCOLOGY REP SPECIALIST this procedu re ARTERIES WITH IV patients; some are in th e CONTRAST inpatients) results section. CT HEAD WITHOUT IV RAD - Semiurgent 10/23/2020 5:18 Re sults for CONTRAST (Fast; most ED AM ONCOLOGY REP SPECIALIST this procedur e patients; some are in the inpatients) results section. DX CHEST PORTABLE 1 RAD - Semiurgent 10/23/2020 4:16 R esults for VIEW (Fast; most ED AM ONCOLOGY REP SPECIALIST this procedur e patients; some are in the inpatients) results section. TROPONIN T, BASELINE, STAT 10/23/2020 4:07 Res ults for 5TH GEN, P AM ONCOLOGY REP SPECIALIST this procedure are in the results section. CBC WITH STAT 10/23/2020 4:07 Results for DIFFERENTIAL, B AM ONCOLOGY REP SPECIALIST this procedu re are in the results section. BASIC METABOLIC STAT 10/23/2020 4:07 Results f or PANEL, S/P AM ONCOLOGY REP SPECIALIST this procedure are in the results section. ECG STAT 10/23/2020 3:02 Results for AM ONCOLOGY REP SPECIALIST this procedure are in the results section. documented in this encounter Results Place peripherally inserted central catheter (PICC) (10/30/2020 3:09 PM ONCOLOGY REP SPECIALIST) Narrative [facility] - 10/30/2020 3:09 PM ONCOLOGY REP SPECIALIST Garret Moore R.N. ? 10/30/2020 ??3:[address] peripherally inserted central cath eter (PICC) Date/Time: 10/30/2020 3:09 PM Performed by: Garret Moore R.N. Authorized by: John Christianson M.D. Care team members present 1. Lavon Cameron M.S.N., RRiazNRiaz PROCEDURE DETAILS Select Line: PICC ?? Line Type: ??Temporary (non-tunneled, no n-implanted) Line Size: ??3.0 FR Adult or Siva/Peds: ??Adult # of Lumens: ??Single lumen Type of Catheter: ??Power injectable and valved Laterality: ??Left IV Location: ??Basilic Optimal site selected: Yes ?? Number of insertion attempts: 1 Blood Return: Yes ?? Placement Assistance: ??ECG guidance and ultrasound guided Tip Verification: ??ECG Catheter Length (cm): ??51 Initial Exposed Catheter (cm): ??2 Mid Upper Arm Circumference (cm): ??26 All lumens flushed (Document volume in I /O): yes ?? CONSENT Consent obtained: written PRE PROCEDURE DETAILS Indications: ??Needed after discharge fo r ongoing care Appropriate hand hygiene, gown, cap, mas k, protective eyewear, sterile gloves, skin preparation, sterile drape, and strict aseptic technique were utilized as applicable for the procedure .: yes ?? Site preparation: ??Chlorhexidine SEDATION / ANESTHESIA Anesthesia method: local infiltration Local infiltrate type: lidocaine POST PROCEDURE DETAILS Procedure completed successfully: yes ?? Complications: no apparent complications ?? John Christianson M.D. PROCEDURE/MINOR SURGICAL ORD ERABLES Performing Organization Address City/State/ZIP Code Phon e Number [facility] NA (ABNORMAL) Hepatic Function Panel (10/30/2020 4:25 AM ONCOLOGY REP SPECIALIST) [facility] Method Time Signature Bilirubin, Total, S 0.5 <=1.2 10/30/2020 DTL mg/dL 5:02 AM ONCOLOGY REP SPECIALIST Bilirubin, Direct, S 0.3 0.0 - 0.3 10/30/2020 DTL mg/dL 5:02 AM ONCOLOGY REP SPECIALIST Aspartate 14 8 - 48 10/30/2020 DTL Aminotransferase U/L 5:02 AM ONCOLOGY REP SPECIALIST (AST), S Alanine 16 7 - 55 10/30/2020 DTL Aminotransferase U/L 5:02 AM ONCOLOGY REP SPECIALIST (ALT), S Alkaline 116 40 - 129 10/30/2020 DTL Phosphatase, S U/L 5:02 AM ONCOLOGY REP SPECIALIST Albumin, S 2.4 (L) 3.5 - 5.0 10/30/2020 DTL g/dL 5:02 AM ONCOLOGY REP SPECIALIST Protein, Total, S 5.4 (L) 6.3 - 7.9 10/30/2020 DTL g/dL 5:02 AM ONCOLOGY REP SPECIALIST Specimen Anatomical Collection Method Collection Time Receive d Time (Source) Location / / Volume Laterality Blood (Blood, 10/30/2020 4:25 AM 10/30/19 4:34 Venous) ONCOLOGY REP SPECIALIST AM ONCOLOGY REP SPECIALIST John Christianson M.D. LAB BLOOD ADD-ON Performing Organization Address City/[facility] Phon e Number [facility] - [address] Phosphorus Inorganic (10/30/2020 4:25 AM ONCOLOGY REP SPECIALIST) P athologist Signature Phosphorus 2.8 2.5 - 4.5 10/30/2020 DTL (Inorganic), S mg/dL 5:09 AM ONCOLOGY REP SPECIALIST Specimen Anatomical Collection Method Collection Time Receive d Time (Source) Location / / Volume Laterality Blood (Blood, 10/30/2020 4:25 AM 10/30/19 4:35 Venous) ONCOLOGY REP SPECIALIST AM ONCOLOGY REP SPECIALIST John Christianson M.D. LAB BLOOD ADD-ON Performing Organization Address City/State/[facility] Code Phon e Number [facility] - [address] [place], [place] [address] [place] [address] Magnesium (10/30/2020 4:25 AM ONCOLOGY REP SPECIALIST) athologist Signature Magnesium, S 2.1 1.7 - 2.3 10/30/2020 DTL mg/dL 5:09 AM ONCOLOGY REP SPECIALIST Specimen Anatomical Collection Method Collection Time Receive d Time (Source) Location / / Volume Laterality Blood (Blood, 10/30/2020 4:25 AM 10/30/19 4:35 Venous) ONCOLOGY REP SPECIALIST AM ONCOLOGY REP SPECIALIST John Christianson M.D. LAB BLOOD ADD-ON Performing Organization Address City/State/ZIP Code Phon e Number [facility] - [address] [place], [place] [address] [facility] [place] [address] Laboratories-[facility] [address] (ABNORMAL) Basic Metabolic Panel (10/30/2020 4:25 AM ONCOLOGY REP SPECIALIST) athologist Signature Potassium, S 3.9 3.6 - 5.2 10/30/2020 DTL mmol/L 5:02 AM ONCOLOGY REP SPECIALIST Sodium, S 135 135 - 145 10/30/2020 DTL mmol/L 5:02 AM ONCOLOGY REP SPECIALIST Chloride, S 102 98 - 107 10/30/2020 DTL mmol/L 5:02 AM ONCOLOGY REP SPECIALIST Bicarbonate, S 24 22 - 29 10/30/2020 DTL mmol/L 5:02 AM ONCOLOGY REP SPECIALIST Anion Gap 9 7 - 15 10/30/2020 DTL 5:02 AM ONCOLOGY REP SPECIALIST BUN (Blood Urea 7 (L) 8 - 24 10/30/2020 DTL Nitrogen), S mg/dL 5:02 AM ONCOLOGY REP SPECIALIST Creatinine 0.92 0.74 - 10/30/2020 DTL 1.35 mg/dL 5:02 AM ONCOLOGY REP SPECIALIST eGFR-Non >90 >=60 10/30/2020 DTL Black/ mL/min/BSA 5:02 AM ONCOLOGY REP SPECIALIST Japanese Comment: ----ADDITIONAL INFORMATION---- Estimated GFR calculated using the 2009 CKD_EPI creatinine equation. eGFR-Black/ >90 >=60 mL/min/BSA 2020 5:02 AM ONCOLOGY REP SPECIALIST DTL Comment: ----ADDITIONAL INFORMATION---- Estimated GFR calculated using the 2009 CKD_EPI creatinine equation. Calcium, Total, S 7.8 (L) 8.6 - 10.0 mg/dL 10/30/2020 5:02 AM ONCOLOGY REP SPECIALIST DTL Glucose, S 82 70 - 140 mg/dL 10/30/2020 5:02 AM ONCOLOGY REP SPECIALIST D TL Specimen Anatomical Collection Method Collection Time Receive d Time (Source) Location / / Volume Laterality Blood (Blood, 10/30/2020 4:25 AM 10/30/19 4:34 Venous) ONCOLOGY REP SPECIALIST AM ONCOLOGY REP SPECIALIST John Christianson M.D. LAB BLOOD ADD-ON Performing Organization Address City/State/ZIP Code Phon e Number [facility] - [address] [place], [place] [address] [facility] [place] [address] Laboratories-[facility] [address] [facility] (ABNORMAL) CBC with Differential, Blood (10/30/2020 4:25 AM ONCOLOGY REP SPECIALIST) [facility] Method Time Signature Hemoglobin 8.9 (L) 13.2 - 10/30/2020 DTL 16.6 g/dL 4:50 AM ONCOLOGY REP SPECIALIST Hematocrit 28.4 (L) 38.3 - 10/30/2020 DTL 48.6 % 4:50 AM ONCOLOGY REP SPECIALIST Erythrocytes 3.61 (L) 4.35 - 10/30/2020 DTL 5.65 4:50 AM ONCOLOGY REP SPECIALIST x10(12)/L MCV 78.7 78.2 - 10/30/2020 DTL 97.9 fL 4:50 AM ONCOLOGY REP SPECIALIST RBC Distrib Width 17.2 (H) 11.8 - 10/30/2020 DTL 14.5 % 4:50 AM ONCOLOGY REP SPECIALIST Platelet Count 460 (H) 135 - 317 10/30/2020 DTL x10(9)/L 4:50 AM ONCOLOGY REP SPECIALIST Leukocytes 14.2 (H) 3.4 - 9.6 10/30/2020 DTL x10(9)/L 4:50 AM ONCOLOGY REP SPECIALIST Neutrophils 11.99 (H) 1.56 - 10/30/2020 DTL 6.45 4:50 AM ONCOLOGY REP SPECIALIST x10(9)/L Lymphocytes 1.11 0.95 - 10/30/2020 DTL 3.07 4:50 AM ONCOLOGY REP SPECIALIST x10(9)/L Monocytes 1.05 (H) 0.26 - 10/30/2020 DTL 0.81 4:50 AM ONCOLOGY REP SPECIALIST x10(9)/L Eosinophils 0.03 0.03 - 10/30/2020 DTL 0.48 4:50 AM ONCOLOGY REP SPECIALIST x10(9)/L Basophils <0.03 0.01 - 10/30/2020 DTL 0.08 4:50 AM ONCOLOGY REP SPECIALIST x10(9)/L Specimen Anatomical Collection Method Collection Time Receive d Time (Source) Location / / Volume Laterality Blood (Blood, 10/30/2020 4:25 AM 10/30/19 4:37 Venous) ONCOLOGY REP SPECIALIST AM ONCOLOGY REP SPECIALIST John Christianson M.D. LAB BLOOD ADD-ON Performing Organization Address City/[facility] Phon e Number [facility] - [address] Troponin T, 2H/6H, 5th Gen (10/29/2020 9:17 PM ONCOLOGY REP SPECIALIST) [facility] Method Time Signature Troponin T, 2 <6 <=15 ng/L 10/29/2020 DTL hr, 5th gen 10:09 PM ONCOLOGY REP SPECIALIST 2H Delta 0 ng/L 10/29/2020 DTL 10:09 PM ONCOLOGY REP SPECIALIST 2H Delta Not Changing 10/29/2020 DTL Interp 10:09 PM ONCOLOGY REP SPECIALIST Troponin T, 6 CANCELED ng/L 10/29/2020 DTL hr, 5th gen 10:09 PM ONCOLOGY REP SPECIALIST Comment: Result canceled by the ancillar y. Specimen Anatomical Collection Method Collection Time Receive d Time (Source) Location / / Volume Laterality Blood (Blood, 10/29/2020 9:17 PM 10/29/19 9:24 Venous) ONCOLOGY REP SPECIALIST PM ONCOLOGY REP SPECIALIST Narrative [facility] - 10/29/2020 10:09 PM ONCOLOGY REP SPECIALIST Specimen Information: Specimen ID: [id number] Specimen Type: Blood Specimen Collection Start Date: 10/29/19 ??9:17 PM Specimen Received Date: 10/29/2020 ??9:2 4 PM Specimen ID: [id number] Specimen Type: Blood Villa Adan M.D. LAB BLOOD TROPONIN Performing Organization Address City/[facility] Phon e Number [facility] [address] [place] [phone] 05 [facility] DTL [address] Troponin T, Baseline, 5th gen (10/29/2020 7:34 PM ONCOLOGY REP SPECIALIST) athologist Signature Troponin T, <6 <=15 ng/L 10/29/2020 DTL Baseline, 5th 8:19 PM ONCOLOGY REP SPECIALIST gen Specimen Anatomical Collection Method Collection Time Receive d Time (Source) Location / / Volume Laterality Blood (Blood, 10/29/2020 7:34 PM 10/29/19 7:49 Venous) ONCOLOGY REP SPECIALIST PM ONCOLOGY REP SPECIALIST Villa Adan M.D. LAB BLOOD TROPONIN Performing Organization Address City/[facility] Code Phon e Number [facility] - [address] [place], [place] [address] [facility] [place] [address] [facility] [address] ECG 12 Lead (10/29/2020 7:28 PM ONCOLOGY REP SPECIALIST) athologist Signature Ventricular Rate 80 BPM MUSE ECG/Min [place] Interval 254 ms MUSE QRSD Interval 104 ms MUSE QT Interval 446 ms MUSE QTC Interval 514 ms MUSE P [place] 2 degrees MUSE T Wave [place] 3 degrees MUSE Specimen Anatomical Collection Method Collection Time Receive d Time (Source) Location / / Volume Laterality 10/29/2020 7:28 PM 7:38 ONCOLOGY REP SPECIALIST PM ONCOLOGY REP SPECIALIST Impressions MUSE - 10/29/2020 7:38 PM ONCOLOGY REP SPECIALIST Poor data quality Sinus rhythm with 1st degree A-V block Nonspecific ST and T wave abnormality Prolonged QT When compared with ECG of 23-OCT-2020 03 :02, [place] interval has increased QT has lengthened Reviewed by HAROON Dorantes Narrative This result has an attachment that is no t available. Procedure Note Saul Perez M.D., Ph.D. - 10/29/2020Fo rmatting of this note might be different from the original. IMPRESSION: Poor data quality Sinus rhythm with 1st degree A-V block Nonspecific ST and T wave abnormality Prolonged QT When compared with ECG of 23-OCT-2020 03 :02, [place] interval has increased QT has lengthened Reviewed by HAROON Dorantes Villa Adan M.D. ECG ORDERABLES Performing Organization Address City/[facility]/ZIP Code Phon e Number MUSE MUSE NA FL Fluoro Less Than 1 Hour (10/29/2020 3:23 PM ONCOLOGY REP SPECIALIST) Specimen (Source) Anatomical Location Collection Method / Collectio n Time Received Time / Laterality Volume Narrative ERCP LOS RST - 10/29/2020 3:26 PM ONCOLOGY REP SPECIALIST This exam does not require a radiologist review or interpretation. Please refer to the patient's medical record on this date for clinical details. John Christianson M.D. IMIsmael FLUOROSCOPY PROCEDURES Performing Organization Address City/State/ZIP Code Phon e Number ERCP LOS RST ERCP (10/29/2020 2:00 PM ONCOLOGY REP SPECIALIST) Specimen (Source) Anatomical Collection Method Collection Time Re ceived Time Location / / Volume Laterality 10/29/2020 2:00 PM ONCOLOGY REP SPECIALIST Impressions [employer] - 10/29/2020 3:38 PM ONCOLOGY REP SPECIALIST Post-op Diagnoses: ? - Walled off necrosis. Narrative [employer] - 10/29/2020 3:38 PM ONCOLOGY REP SPECIALIST Gonda 2 GI Patient Name: Adam Campbell Date of : 1965 Age: 55 Gender: Male Procedure Date: 10/29/2020 Procedure: ? EUS/Necr osectomy Providers: ? Adam Simpson MD Referring Provider: ?John gonzáles Pre-op Diagnoses: ?Necrosectom y Recommendation: ? - The findings and recommendation s were discussed with the referring ? physician. ? - Consider repeat imaging in with further decisions ? regarding the best approach to in tervention. Findings: ? A forward viewing scope was advan apolonia to the site of the transmural ? stents. As a catheter was advance d next to the stents, which induced ? some bleeding that spontaneously stopped. An EUS scope was advanced ? revealing a network of varices in the area. Under EUS guidance a ? Visiglide was passed successfully into the cavity through the cystotomy. ? A 15/10 Axios stent was then plac ed next to the two plastic stents. ? Given the dimensions of this trac k, the distal umbrella did not fully ? open, but appears to have opened sufficiently to remain in place. The ? proximal umbrella did appropriate ly open. A large amount of pus flowed ? after doing so. A 10Fr x 20cm uri nary stent was placed via the Axios ? stent and deep into the cavity. Procedural Details: ? The [...] were monitored continuously. The Duodenoscope was introduced through the ? mouth, and advanced to the duoden um and used to inject contrast into the ? fluid cavity/WON. The procedure w as determined to be ASGE Complexity ? Level 4. Complications: ? No immedia te complications. Estimated Blood Loss: ?Estimated blo od loss: none. Attending Participation: I personally pe rformed the entire procedure. Adam Simpson MD 10/29/2020 3:38:36 PM This report has been signed electronical ly. Number of Addenda: 0 Note Initiated On: 10/29/2020 2:00 PM John Christianson M.D. GI PROCEDURE ORDERABLES Performing Organization Address City/State/ZIP Code Phon e Number [employer] NA (ABNORMAL) Morphology Evaluation (Special Smear) (10/29/2020 4:32 AM ONCOLOGY REP SPECIALIST) [facility] Method Time Signature Neutrophilic Segs 83 (H) 50 - 75 % 10/29/2020 [facility] Bands 6:24 AM ONCOLOGY REP SPECIALIST Lymphocytes 7 (L) 18 - 42 % 10/29/2020 DHPM 6:24 AM ONCOLOGY REP SPECIALIST Monocytes 7 2 - 11 % 10/29/2020 DH[facility] 6:24 AM ONCOLOGY REP SPECIALIST Basophils 1 0 - 2 % 10/29/2020 [facility] 6:24 AM ONCOLOGY REP SPECIALIST Metamyelocytes 1 (H) <1 % 10/29/2020 [facility] 6:24 AM ONCOLOGY REP SPECIALIST Myelocytes 1 (H) <0.5 % 10/29/2020 [facility] 6:24 AM ONCOLOGY REP SPECIALIST Manual Absolute 8.38 (H) 1.56 - 10/29/2020 [facility] Neutrophil Count 6.45 6:24 AM ONCOLOGY REP SPECIALIST x10(9)/L Comment: ----ADDITIONAL INFORMATION---- The manual absolute neutrophil count is derived from a manual differential count and therefore is not exactly comparable to the automated absolute hamzah trophil count. Reviewed by: Yadira 10/29/2020 6:24 AM ONCOLOGY REP SPECIALIST [facility] Specimen Anatomical Collection Method Collection Time Receive d Time (Source) Location / / Volume Laterality Blood 10/29/2020 4:32 AM 4:49 ONCOLOGY REP SPECIALIST AM ONCOLOGY REP SPECIALIST John Christianson M.D. LAB BLOOD ADD-ON Performing Organization Address City/State/ZIP Code Phon e Number [facility] - [address] [place] [address] [place] [address] [facility] 200 [facility] (ABNORMAL) Basic Metabolic Panel (10/29/2020 4:32 AM ONCOLOGY REP SPECIALIST) athologist Signature Potassium, S 3.8 3.6 - 5.2 10/29/2020 DTL mmol/L 5:20 AM ONCOLOGY REP SPECIALIST Sodium, S 135 135 - 145 10/29/2020 DTL mmol/L 5:20 AM ONCOLOGY REP SPECIALIST Chloride, S 102 98 - 107 10/29/2020 DTL mmol/L 5:20 AM ONCOLOGY REP SPECIALIST Bicarbonate, S 25 22 - 29 10/29/2020 DTL mmol/L 5:20 AM ONCOLOGY REP SPECIALIST Anion Gap 8 7 - 15 10/29/2020 DTL 5:20 AM ONCOLOGY REP SPECIALIST BUN (Blood Urea 8 8 - 24 10/29/2020 DTL Nitrogen), S mg/dL 5:20 AM ONCOLOGY REP SPECIALIST Creatinine 0.92 0.74 - 10/29/2020 DTL 1.35 mg/dL 5:20 AM ONCOLOGY REP SPECIALIST eGFR-Non >90 >=60 10/29/2020 DTL Black/ mL/min/BSA 5:20 AM ONCOLOGY REP SPECIALIST Japanese Comment: ----ADDITIONAL INFORMATION---- Estimated GFR calculated using the 2009 CKD_EPI creatinine equation. eGFR-Black/ >90 >=60 mL/min/BSA 2020 5:20 AM ONCOLOGY REP SPECIALIST DTL Comment: ----ADDITIONAL INFORMATION---- Estimated GFR calculated using the 2009 CKD_EPI creatinine equation. Calcium, Total, S 7.6 (L) 8.6 - 10.0 mg/dL 10/29/2020 5:20 AM ONCOLOGY REP SPECIALIST DTL Glucose, S 76 70 - 140 mg/dL 10/29/2020 5:20 AM ONCOLOGY REP SPECIALIST D TL Specimen Anatomical Collection Method Collection Time Receive d Time (Source) Location / / Volume Laterality Blood (Blood, 10/29/2020 4:32 AM 10/29/19 4:49 Venous) ONCOLOGY REP SPECIALIST AM ONCOLOGY REP SPECIALIST John Christianson M.D. LAB BLOOD ADD-ON Performing Organization Address City/State/ZIP Code Phon e Number [facility] - [address] [place] [phone] [facility] [place] [address] [facility] 200 [facility] (ABNORMAL) CBC with Differential, Blood (10/29/2020 4:32 AM ONCOLOGY REP SPECIALIST) [facility] gist Method Time Signature Hemoglobin 8.8 (L) 13.2 - 10/29/2020 DTL 16.6 g/dL 4:56 AM ONCOLOGY REP SPECIALIST Hematocrit 28.2 (L) 38.3 - 10/29/2020 DTL 48.6 % 4:56 AM ONCOLOGY REP SPECIALIST Erythrocytes 3.61 (L) 4.35 - 10/29/2020 DTL 5.65 4:56 AM ONCOLOGY REP SPECIALIST x10(12)/L MCV 78.1 (L) 78.2 - 10/29/2020 DTL 97.9 fL 4:56 AM ONCOLOGY REP SPECIALIST RBC Distrib 16.6 (H) 11.8 - 10/29/2020 DTL Width 14.5 % 4:56 AM ONCOLOGY REP SPECIALIST Platelet Count 426 (H) 135 - 317 10/29/2020 DTL x10(9)/L 4:56 AM ONCOLOGY REP SPECIALIST Leukocytes 10.1 (H) 3.4 - 9.6 10/29/2020 DTL x10(9)/L 4:56 AM ONCOLOGY REP SPECIALIST Neutrophils SeeComment 1.56 - 10/29/2020 DTL 6.45 6:23 AM ONCOLOGY REP SPECIALIST x10(9)/L Comment: Auto-diff results not valid. Se e manual differential. Specimen Anatomical Collection Method Collection Time Receive d Time (Source) Location / / Volume Laterality Blood (Blood, 10/29/2020 4:32 AM 10/29/19 4:49 Venous) ONCOLOGY REP SPECIALIST AM ONCOLOGY REP SPECIALIST John Christianson M.D. LAB BLOOD ADD-ON Performing Organization Address City/[facility] Phon e Number [facility] - [address] Magnesium (10/29/2020 4:30 AM ONCOLOGY REP SPECIALIST) athologist Signature Magnesium, S 2.0 1.7 - 2.3 10/29/2020 DTL mg/dL 8:54 PM ONCOLOGY REP SPECIALIST Specimen Anatomical Collection Method Collection Time Receive d Time (Source) Location / / Volume Laterality Blood (Blood, 10/29/2020 4:30 AM 10/29/19 8:46 Venous) ONCOLOGY REP SPECIALIST PM ONCOLOGY REP SPECIALIST Villa Adan M.D. LAB BLOOD ADD-ON Performing Organization Address City/[facility] Phon e Number [facility] [address] (ABNORMAL) Basic Metabolic Panel (10/28/2020 4:08 AM ONCOLOGY REP SPECIALIST) P athologist Signature Potassium, S 3.7 3.6 - 5.2 10/28/2020 DTL mmol/L 4:48 AM ONCOLOGY REP SPECIALIST Sodium, S 138 135 - 145 10/28/2020 DTL mmol/L 4:48 AM ONCOLOGY REP SPECIALIST Chloride, S 103 98 - 107 10/28/2020 DTL mmol/L 4:48 AM ONCOLOGY REP SPECIALIST Bicarbonate, S 27 22 - 29 10/28/2020 DTL mmol/L 4:48 AM ONCOLOGY REP SPECIALIST Anion Gap 8 7 - 15 10/28/2020 DTL 4:48 AM ONCOLOGY REP SPECIALIST BUN (Blood Urea 14 8 - 24 10/28/2020 DTL Nitrogen), S mg/dL 4:48 AM ONCOLOGY REP SPECIALIST Creatinine 1.01 0.74 - 10/28/2020 DTL 1.35 mg/dL 4:48 AM ONCOLOGY REP SPECIALIST eGFR-Non 83 >=60 10/28/2020 DTL Black/ mL/min/BSA 4:48 AM ONCOLOGY REP SPECIALIST Japanese Comment: ----ADDITIONAL INFORMATION---- Estimated GFR calculated using the 2009 CKD_EPI creatinine equation. eGFR-Black/ >90 >=60 mL/min/BSA 2020 4:48 AM ONCOLOGY REP SPECIALIST DTL Comment: ----ADDITIONAL INFORMATION---- Estimated GFR calculated using the 2009 CKD_EPI creatinine equation. Calcium, Total, S 7.7 (L) 8.6 - 10.0 mg/dL 10/28/2020 4:48 AM ONCOLOGY REP SPECIALIST DTL Glucose, S 108 70 - 140 mg/dL 10/28/2020 4:48 AM ONCOLOGY REP SPECIALIST D TL Specimen Anatomical Collection Method Collection Time Receive d Time (Source) Location / / Volume Laterality Blood (Blood, 10/28/2020 4:08 AM 10/28/19 4:20 Venous) ONCOLOGY REP SPECIALIST AM ONCOLOGY REP SPECIALIST John Christianson M.D. LAB BLOOD ADD-ON Performing Organization Address City/State/ZIP Code Phon e Number [facility] - [address] [place], [place] [address] [facility] [place] [address] [facility] 200 [facility] (ABNORMAL) Morphology Evaluation (Special Smear) (10/28/2020 4:07 AM ONCOLOGY REP SPECIALIST) [facility] gist Method Time Signature Neutrophilic Segs 76 (H) 50 - 75 % 10/28/2020 DH[facility] Bands 5:14 AM ONCOLOGY REP SPECIALIST Lymphocytes 10 (L) 18 - 42 % 10/28/2020 DHPM 5:14 AM ONCOLOGY REP SPECIALIST Monocytes 11 2 - 11 % 10/28/2020 DHPM 5:14 AM ONCOLOGY REP SPECIALIST Metamyelocytes 1 (H) <1 % 10/28/2020 DHPM 5:14 AM ONCOLOGY REP SPECIALIST Myelocytes 2 (H) <0.5 % 10/28/2020 DHPM 5:14 AM ONCOLOGY REP SPECIALIST Manual Absolute 8.51 (H) 1.56 - 10/28/2020 DHPM Neutrophil Count 6.45 5:14 AM ONCOLOGY REP SPECIALIST x10(9)/L Comment: ----ADDITIONAL INFORMATION---- The manual absolute neutrophil count is derived from a manual differential count and therefore is not exactly comparable to the automated absolute hamzah trophil count. Specimen Anatomical Collection Method Collection Time Receive d Time (Source) Location / / Volume Laterality Blood 10/28/2020 4:07 AM 4:20 ONCOLOGY REP SPECIALIST AM ONCOLOGY REP SPECIALIST John Christianson M.D. LAB BLOOD ADD-ON Performing Organization Address City/[facility] Phon e Number [facility] - [address] [place], [place] [address] [place] [address] [facility] 200 [facility] (ABNORMAL) CBC with Differential, Blood (10/28/2020 4:07 AM ONCOLOGY REP SPECIALIST) [facility] Method Time Signature Hemoglobin 9.2 (L) 13.2 - 10/28/2020 DTL 16.6 g/dL 4:26 AM ONCOLOGY REP SPECIALIST Hematocrit 29.4 (L) 38.3 - 10/28/2020 DTL 48.6 % 4:26 AM ONCOLOGY REP SPECIALIST Erythrocytes 3.77 (L) 4.35 - 10/28/2020 DTL 5.65 4:26 AM ONCOLOGY REP SPECIALIST x10(12)/L MCV 78.0 (L) 78.2 - 10/28/2020 DTL 97.9 fL 4:26 AM ONCOLOGY REP SPECIALIST RBC Distrib 15.9 (H) 11.8 - 10/28/2020 DTL Width 14.5 % 4:26 AM ONCOLOGY REP SPECIALIST Platelet Count 424 (H) 135 - 317 10/28/2020 DTL x10(9)/L 4:26 AM ONCOLOGY REP SPECIALIST Leukocytes 11.2 (H) 3.4 - 9.6 10/28/2020 DTL x10(9)/L 4:26 AM ONCOLOGY REP SPECIALIST Neutrophils SeeComment 1.56 - 10/28/2020 DTL 6.45 5:14 AM ONCOLOGY REP SPECIALIST x10(9)/L Comment: Auto-diff results not valid. Se e manual differential. Specimen Anatomical Collection Method Collection Time Receive d Time (Source) Location / / Volume Laterality Blood (Blood, 10/28/2020 4:07 AM 10/28/19 21 4:20 Venous) ONCOLOGY REP SPECIALIST AM ONCOLOGY REP SPECIALIST John Christianson M.D. LAB BLOOD ADD-ON Performing Organization Address City/[facility]/ZIP Code Phon e Number [facility] - [address] [place], [place] [address] [facility] [place] [address] Laboratories-[address] (ABNORMAL) Morphology Evaluation (Special Smear) (10/27/2020 4:26 AM ONCOLOGY REP SPECIALIST) Analysis Performed At Patho logist Time Signature Neutrophilic Segs 75 50 - 75 % 10/27/2020 DH[facility] and Bands 6:09 AM ONCOLOGY REP SPECIALIST Lymphocytes 15 (L) 18 - 42 % 10/27/2020 DHPM 6:09 AM ONCOLOGY REP SPECIALIST Monocytes 7 2 - 11 % 10/27/2020 DHPM 6:09 AM ONCOLOGY REP SPECIALIST Myelocytes 3 (H) <0.5 % 10/27/2020 PM 6:09 AM ONCOLOGY REP SPECIALIST Manual Absolute 5.25 1.56 - 10/27/2020 [facility] Neutrophil Count 6.45 6:09 AM ONCOLOGY REP SPECIALIST x10(9)/L Comment: ----ADDITIONAL INFORMATION---- The manual absolute neutrophil count is derived from a manual differential count and therefore is not exactly comparable to the automated absolute hamzah trophil count. Specimen Anatomical Collection Method Collection Time Receive d Time (Source) Location / / Volume Laterality Blood 10/27/2020 4:26 AM 4:50 ONCOLOGY REP SPECIALIST AM ONCOLOGY REP SPECIALIST John Christianson M.D. LAB BLOOD ADD-ON Performing Organization Address City/State/ZIP Code Phon e Number [place] [id number] 05 [place] [address] [facility]-[address] (ABNORMAL) Hepatic Function Panel (10/27/2020 4:26 AM ONCOLOGY REP SPECIALIST) Patholo gist Method Time Signature Bilirubin, Total, S 0.4 <=1.2 10/27/2020 DTL mg/dL 5:22 AM ONCOLOGY REP SPECIALIST Bilirubin, Direct, S 0.3 0.0 - 0.3 10/27/2020 DTL mg/dL 5:22 AM ONCOLOGY REP SPECIALIST Aspartate 15 8 - 48 10/27/2020 DTL Aminotransferase U/L 5:22 AM ONCOLOGY REP SPECIALIST (AST), S Alanine 15 7 - 55 10/27/2020 DTL Aminotransferase U/L 5:22 AM ONCOLOGY REP SPECIALIST (ALT), S Alkaline 140 (H) 40 - 129 10/27/2020 DTL Phosphatase, S U/L 5:22 AM ONCOLOGY REP SPECIALIST Albumin, S 2.3 (L) 3.5 - 5.0 10/27/2020 DTL g/dL 5:22 AM ONCOLOGY REP SPECIALIST Protein, Total, S 5.3 (L) 6.3 - 7.9 10/27/2020 DTL g/dL 5:22 AM ONCOLOGY REP SPECIALIST Specimen Anatomical Collection Method Collection Time Receive d Time (Source) Location / / Volume Laterality Blood (Blood, 10/27/2020 4:26 AM 10/27/19 4:48 Venous) ONCOLOGY REP SPECIALIST AM ONCOLOGY REP SPECIALIST John Christianson M.D. LAB BLOOD ADD-ON Performing Organization Address City/[facility]/ZIP Code Phon e Number [facility] - [address] [place] [phone] [place] [address] (ABNORMAL) Phosphorus Inorganic (10/27/2020 4:26 AM ONCOLOGY REP SPECIALIST) P athologist Signature Phosphorus 4.6 (H) 2.5 - 4.5 10/27/2020 DTL (Inorganic), S mg/dL 5:17 AM ONCOLOGY REP SPECIALIST Specimen Anatomical Collection Method Collection Time Receive d Time (Source) Location / / Volume Laterality Blood (Blood, 10/27/2020 4:26 AM 10/27/19 4:50 Venous) ONCOLOGY REP SPECIALIST AM ONCOLOGY REP SPECIALIST John Christianson M.D. LAB BLOOD ADD-ON Performing Organization Address City/[facility]/ZIP Code Phon e Number [facility] - [phone] Magnesium (10/27/2020 4:26 AM ONCOLOGY REP SPECIALIST) P athologist Signature Magnesium, S 2.2 1.7 - 2.3 10/27/2020 DTL mg/dL 5:17 AM ONCOLOGY REP SPECIALIST Specimen Anatomical Collection Method Collection Time Receive d Time (Source) Location / / Volume Laterality Blood (Blood, 10/27/2020 4:26 AM 10/27/19 4:50 Venous) ONCOLOGY REP SPECIALIST AM ONCOLOGY REP SPECIALIST John Christianson M.D. LAB BLOOD ADD-ON Performing Organization Address City/State/ZIP Code Phon e Number [facility] - [address] [place], [place] [address] [facility] [place] [address] [facility] 200 [facility] (ABNORMAL) Basic Metabolic Panel (10/27/2020 4:26 AM ONCOLOGY REP SPECIALIST) P athologist Signature Potassium, S 5.1 3.6 - 5.2 10/27/2020 DTL mmol/L 5:22 AM ONCOLOGY REP SPECIALIST Sodium, S 136 135 - 145 10/27/2020 DTL mmol/L 5:22 AM ONCOLOGY REP SPECIALIST Chloride, S 101 98 - 107 10/27/2020 DTL mmol/L 5:22 AM ONCOLOGY REP SPECIALIST Bicarbonate, S 26 22 - 29 10/27/2020 DTL mmol/L 5:22 AM ONCOLOGY REP SPECIALIST Anion Gap 9 7 - 15 10/27/2020 DTL 5:22 AM ONCOLOGY REP SPECIALIST BUN (Blood Urea 14 8 - 24 10/27/2020 DTL Nitrogen), S mg/dL 5:22 AM ONCOLOGY REP SPECIALIST Creatinine 0.93 0.74 - 10/27/2020 DTL 1.35 mg/dL 5:22 AM ONCOLOGY REP SPECIALIST eGFR-Non >90 >=60 10/27/2020 DTL Black/ mL/min/BSA 5:22 AM ONCOLOGY REP SPECIALIST Japanese Comment: ----ADDITIONAL INFORMATION---- Estimated GFR calculated using the 2009 CKD_EPI creatinine equation. eGFR-Black/ >90 >=60 mL/min/BSA 2020 5:22 AM ONCOLOGY REP SPECIALIST DTL Comment: ----ADDITIONAL INFORMATION---- Estimated GFR calculated using the 2009 CKD_EPI creatinine equation. Calcium, Total, S 8.1 (L) 8.6 - 10.0 mg/dL 10/27/2020 5:22 AM ONCOLOGY REP SPECIALIST DTL Glucose, S 107 70 - 140 mg/dL 10/27/2020 5:22 AM ONCOLOGY REP SPECIALIST D TL Specimen Anatomical Collection Method Collection Time Receive d Time (Source) Location / / Volume Laterality Blood (Blood, 10/27/2020 4:26 AM 10/27/19 4:48 Venous) ONCOLOGY REP SPECIALIST AM ONCOLOGY REP SPECIALIST John Christianson M.D. LAB BLOOD ADD-ON Performing Organization Address City/State/ZIP Code Phon e Number [facility] - [address] [place], [place] [address] [place] [address] [place] [address] [facility] [address] [facility] (ABNORMAL) CBC with Differential, Blood (10/27/2020 4:26 AM ONCOLOGY REP SPECIALIST) [facility] gist Method Time Signature Hemoglobin 9.4 (L) 13.2 - 10/27/2020 DTL 16.6 g/dL 4:59 AM ONCOLOGY REP SPECIALIST Hematocrit 30.7 (L) 38.3 - 10/27/2020 DTL 48.6 % 4:59 AM ONCOLOGY REP SPECIALIST Erythrocytes 3.90 (L) 4.35 - 10/27/2020 DTL 5.65 4:59 AM ONCOLOGY REP SPECIALIST x10(12)/L MCV 78.7 78.2 - 10/27/2020 DTL 97.9 fL 4:59 AM ONCOLOGY REP SPECIALIST RBC Distrib 15.9 (H) 11.8 - 10/27/2020 DTL Width 14.5 % 4:59 AM ONCOLOGY REP SPECIALIST Platelet Count 384 (H) 135 - 317 10/27/2020 DTL x10(9)/L 4:59 AM ONCOLOGY REP SPECIALIST Leukocytes 7.0 3.4 - 9.6 10/27/2020 DTL x10(9)/L 4:59 AM ONCOLOGY REP SPECIALIST Neutrophils SeeComment 1.56 - 10/27/2020 DTL 6.45 6:08 AM ONCOLOGY REP SPECIALIST x10(9)/L Comment: Auto-diff results not valid. Se e manual differential. Specimen Anatomical Collection Method Collection Time Receive d Time (Source) Location / / Volume Laterality Blood (Blood, 10/27/2020 4:26 AM 10/27/19 4:50 Venous) ONCOLOGY REP SPECIALIST AM ONCOLOGY REP SPECIALIST John Christianson M.D. LAB BLOOD ADD-ON Performing Organization Address City/State/ZIP Code Phon e Number [facility] - [address] [place], [place] [address] [facility] [place] [address] [facility] [address] Abdomen Pelvis with IV Contrast (10/26/2020 6:40 PM ONCOLOGY REP SPECIALIST) Anatomical Region Laterality Modality Abdomen, Pelvis, Abdominal RST LOS, N/A Comp uted Tomography, Computed Abdominal ARZ LOS, Abdominal FLA LOS Dileep ography Specimen (Source) Anatomical Collection Method Collection Time Re ceived Time Location / / Volume Laterality 10/26/2020 6:41 PM ONCOLOGY REP SPECIALIST Impressions 10/26/2020 7:01 PM ONCOLOGY REP SPECIALIST 1. 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 2. Stable small left pleural effusion wi th compressive atelectasis in the left base. Narrative 10/26/2020 7:01 PM ONCOLOGY REP SPECIALIST EXAM: ??CT ABDOMEN PELVIS WITH IV CONTRAST COMPARISON: ??10/23/2020 CT abdomen and pelvis. FINDINGS: ?? Since the prior CT, there has been inter kira placement of 2 pigtail stents with proximal ends in the fundus of the stoma ch, which extend through the gastric fistula to the left abdominal collection s ??as delineated on EUS from earlier today (series 3 image 45). These collect ions in the left abdomen demonstrate positive enteric contrast confirming the communication to the stomach. There has been slight interval decrease in size of the fluid and gas collection near the fundus. No significant interval change in size of the left paracolic gutter fluid collection. Unchanged appearance of the mass in the uncinate process of the pancreas (series 3 image 68). Metallic biliary stent. 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 Similar appearance of pneumobilia within the left hepatic lobe, and gas within the gallbladder. The adrenal glands, kid neys, and spleen are normal. 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 Contrast in the bladder from a prior contrast enhanced exam. Stable small left-sided pleural effusion with compressive atelectasis of the left lower lobe. Atelectasis of the righ t lung base. Procedure Note Philipp, Adam Jackson M.D. - 10/26/2020Format ting of this note might be different from the original. EXAM: CT ABDOMEN PELVIS WITH IV CONTRAST COMPARISON: 10/23/2020 CT abdomen and pe lvis. FINDINGS: Since the prior CT, there has been inter kira placement of 2 pigtail stents with proximal ends in the fundus of the stoma ch, which extend through the gastric fistula to the left abdominal collection s as delineated on EUS from earlier today (series 3 image 45). These collect ions in the left abdomen demonstrate positive enteric contrast confirming the communication to the stomach. There has been slight interval decrease in size of the fluid and gas collection near the fundus. No significant interval change in size of the left paracolic gutter fluid collection. Unchanged appearance of the mass in the uncinate process of the pancreas (series 3 image 68). Metallic biliary stent. 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 Similar appearance of pneumobilia within the left hepatic lobe, and gas within the gallbladder. The adrenal glands, kid neys, and spleen are normal. 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 Contrast in the bladder from a prior contrast enhanced exam. Stable small left-sided pleural effusion with compressive atelectasis of the left lower lobe. Atelectasis of the righ t lung base. IMPRESSION: 1. Interval placement of 2 pigtail sheldon ters with proximal ends in the stomach fundus, extending through the presumed g astric-cyst fistula, and descending inferiorly along the left abdomen, with distal tips in a fluid collection at the level of the left kidney. 2. Stable small left pleural effusion wi th compressive atelectasis in the left base. John Christianson M.D. IMG CT PROCEDURES VRE PCR (10/26/2020 5:33 PM ONCOLOGY REP SPECIALIST) [facility] gist Method Time Signature Specimen Swab, 10/26/2020 DTL Source Perirectal 11:15 PM ONCOLOGY REP SPECIALIST VRE PCR Negative Not 10/26/2020 DTL Applicable 11:15 PM ONCOLOGY REP SPECIALIST Comment: ----ADDITIONAL INFORMATION---- This test was developed using an analyte specific reagent. Its performance characteristics were determined by [facility] in a manner consistent with CLIA requirements. This test has not bee n cleared or approved by the U.S. Food and Drug Administration. Specimen Anatomical Collection Method Collection Time Receive d Time (Source) Location / / Volume Laterality Varies 10/26/2020 5:33 PM 5:48 (Perirectal) ONCOLOGY REP SPECIALIST PM ONCOLOGY REP SPECIALIST Billie Shaw M.D. LAB MICROBIOLOGY - GENERAL O RDERABLES Performing Organization Address City/State/ZIP Code Phon e Number [facility] - [address] [place], [place] [address] [facility] [place] [address] [facility] [address] [place] Fluoro Less Than 1 Hour (10/26/2020 3:58 PM ONCOLOGY REP SPECIALIST) Specimen (Source) Anatomical Location Collection Method / Collectio n Time Received Time / Laterality Volume Narrative ERCP LOS RST - 10/26/2020 4:02 PM ONCOLOGY REP SPECIALIST This exam does not require a radiologist review or interpretation. Please refer to the patient's medical record on this date for clinical details. Aramis WONG FLUOROSCOPY PROCEDURES Performing Organization Address City/State/ZIP Code Phon e Number ERCP LOS RST Upper EUS (10/26/2020 1:12 PM ONCOLOGY REP SPECIALIST) Specimen (Source) Anatomical Collection Method Collection Time Re ceived Time Location / / Volume Laterality 10/26/2020 1:12 PM ONCOLOGY REP SPECIALIST Impressions [employer] - 10/26/2020 6:09 PM ONCOLOGY REP SPECIALIST Post-op Diagnoses: ? 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 ? - Two 7 Fr x 20 cm double pigtail stents were placed across the fistula ? into the lower pelvis, draining p us ? - Ascites ? - No active bleeding Narrative [employer] - 10/26/2020 6:09 PM ONCOLOGY REP SPECIALIST Gonda 2 GI Patient Name: Adam Campbell Date of : 1965 Age: 55 Gender: Male Procedure Date: 10/26/2020 Procedure: ? Upper EU S Providers: ? Adam Simpson MD, Kuldeep Gonzalez MD ? (Karen llow) Referring Provider: ?Trell rosales Pre-op Diagnoses: ?Abnormal ab dominal/pelvic CT scan Recommendation: ? - [facility] to [facility] for [facility]. ? - Perform CT scan (computed tomog agapito) of the abdomen with contrast ? today to ensure stents are in int ended fluid collection ? - NPO until CT scan results retur n. ? - Although unlikely due to the pu s, if the stents are not in the fluid ? collection, recommend contacting the beverage inspection machine tender GI team to remove stents ? through EGD ? - Repeat the EUS/ERCP in 3 days f or retreatment (or earlier if ? clinically indicated). At this ti me, additional drainage sites / ? drainage can be pursued. ? - Continue IV antibiotics ? - Resume anticoagulation tomorrow , discontinue day of repeat procedure Findings: ? ENDOSCOPIC FINDING: : ? A small spontaneous fistula was f ound in the posterior proximal body of ? the stomach with spontaneous pus and blood emanating from the area. ? ENDOSONOGRAPHIC FINDING: : ? Endoscopic ultrasound examination revealed multiple tubal, anechoic ? structures in the body of the sto mach consistent with varices. No active ? bleeding ? Endoscopic ultrasound examination revealed multiple tubal, anechoic ? structures around the common bile duct consistent with varices. No ? active bleeding ? A shadowing lesion suggestive of a fluid collection was identified in ? the pancreatic body. Air due to t he spontaneous fistula prohibited ? visualization of the deeper struc tures for a metal stent ? cystgastrostomy. The case was dis cussed with the Gastroenterology ? consulting service regarding basia tment options, namely a lumen apposing ? metal stent or attempting soft pl astic pigtails into the presumed ? cavity. With the varices and ongo ing anticoagulation, the latter plastic ? pigtails were pursued. The EUS sc ope was removed and a diagnostic scope ? fitted with a soft cap was used. Placement of a 0.025 inch x 450 cm ? angled Visiglide through the spon taneous fistula was successful. The ? wire was carefully advanced into the collection, reviewing the ? cross-sectional imaging several t imes throughout the procedure, as it ? wasn't clear if the peritoneum or fluid collection was accessed through ? the fistula. A balloon tipped cat heter was advanced over the wire and ? contrast was injected. The contra st tracked down to the pelvis and ? laterally, in keeping with the fl uid collection seen on imaging. The ? decision was made to place a soft 7 Fr x 20 cm double pigtail stent into ? this area. Large amounts of pus e manated from the stent. Given the ? significant amount of pus, a seco nd 7 Fr x 20 cm double pigtail stent ? was successfully placed in the ca vity. Fluid was not aspirated for ? culture as it was contaminated wi th stomach randy from spontaneous ? fistula. Self limiting oozing fro m the gastric varices were seen ? throughout stent passage. No acti ve bleeding or red freeman signs . Procedural Details: ? The patient was seen, [...] oxygen saturations ? were monitored continuously. The Gastroscope was introduced through the ? mouth, and advanced to the second part of duodenum. The Endosonoscope ? was introduced through the mouth, and advanced to the second part of ? duodenum. The upper EUS was techn ically difficult and complex. The ? procedure was determined to be GE Complexity Level 3. Complications: ? No immedia te complications. Estimated Blood Loss: ?Estimated blo od loss: none. Attending Participation: I was present a nd participated during the entire ? pro cedure, including non-patel portions. Adam Simpson MD 10/26/2020 6:08:59 PM This report has been signed electronical ly. Number of Addenda: 0 Note Initiated On: 10/26/2020 1:12 PM Aramis Donohue M.D. GI PROCEDURE ORDERABLES Performing Organization Address City/[facility]/ZIP Code Phon e Number [facility] NA APTT (Activated Partial Thromboplastin Time) (10/26/2020 4:18 AM ONCOLOGY REP SPECIALIST) P athologist Signature Activated 26 25 - 37 sec 10/26/2020 DTL Partial 5:15 AM ONCOLOGY REP SPECIALIST Thrombopl Time, P Specimen Anatomical Collection Method Collection Time Receive d Time (Source) Location / / Volume Laterality Blood (Blood, 10/26/2020 4:18 AM 10/26/19 4:54 Venous) ONCOLOGY REP SPECIALIST AM ONCOLOGY REP SPECIALIST John Christianson M.D. LAB BLOOD ADD-ON Performing Organization Address [facility] Phon e Number [facility] - [id number] [place] [address] (ABNORMAL) Prothrombin Time (PT) (10/26/2020 4:18 AM ONCOLOGY REP SPECIALIST) [facility] gist Method Time Signature Prothrombin 14.1 (H) 9.4 - 12.5 10/26/2020 DTL Time, P sec 5:15 AM ONCOLOGY REP SPECIALIST INR 1.3 0.9 - 1.1 10/26/2020 DTL 5:15 AM ONCOLOGY REP SPECIALIST Comment: ----ADDITIONAL INFORMATION---- Standard intensity warfarin therapeutic range: 2.0 to 3.0 ?? High intensity warfarin therapeutic rang e: 2.5 to 3.5 Specimen Anatomical Collection Method Collection Time Receive d Time (Source) Location / / Volume Laterality Blood (Blood, 10/26/2020 4:18 AM 10/26/19 4:54 Venous) ONCOLOGY REP SPECIALIST AM ONCOLOGY REP SPECIALIST John Christianson M.D. LAB BLOOD ADD-ON Performing Organization Address City/[facility]/ZIP Code Phon e Number [facility] - [address] [place], [place] [address] [facility] [place], [place] [id number] [place] [address] Type and Screen (with reflex Antibody ID) (10/26/2020 4:18 AM ONCOLOGY REP SPECIALIST) [facility] [employer] Method Time Signature ABORh A Pos Not 10/26/2020 ETRM applicable 5:11 AM ONCOLOGY REP SPECIALIST Antibody Negative Negative 10/26/2020 ETRM Screen 5:24 AM ONCOLOGY REP SPECIALIST Type & Screen 10/29/2020 10/26/2020 ETRM Expiration 23:59 5:11 AM ONCOLOGY REP SPECIALIST Testing [place] DEFAULT 10/26/2020 ETRM Location 4:48 AM ONCOLOGY REP SPECIALIST Specimen Anatomical Collection Method Collection Time Receive d Time (Source) Location / / Volume Laterality Blood (Blood, 10/26/2020 4:18 AM 10/26/19 4:48 Venous) ONCOLOGY REP SPECIALIST AM ONCOLOGY REP SPECIALIST Jhon Christianson M.D. LAB BLOOD BANK TEST ORDERABL ES Performing Organization Address City/State/ZIP Code Phon e Number [facility] - [facility] [address] [place], [place] [address] [facility] [place] [address] [facility] [address] [facility] (ABNORMAL) CBC with Differential, Blood (10/26/2020 4:18 AM ONCOLOGY REP SPECIALIST) [facility] [employer] Method Time Signature Hemoglobin 9.1 (L) 13.2 - 10/26/2020 DTL 16.6 g/dL 5:02 AM ONCOLOGY REP SPECIALIST Hematocrit 29.2 (L) 38.3 - 10/26/2020 DTL 48.6 % 5:02 AM ONCOLOGY REP SPECIALIST Erythrocytes 3.76 (L) 4.35 - 10/26/2020 DTL 5.65 5:02 AM ONCOLOGY REP SPECIALIST x10(12)/L MCV 77.7 (L) 78.2 - 10/26/2020 DTL 97.9 fL 5:02 AM ONCOLOGY REP SPECIALIST RBC Distrib Width 15.9 (H) 11.8 - 10/26/2020 DTL 14.5 % 5:02 AM ONCOLOGY REP SPECIALIST Platelet Count 297 135 - 317 10/26/2020 DTL x10(9)/L 5:02 AM ONCOLOGY REP SPECIALIST Leukocytes 10.1 (H) 3.4 - 9.6 10/26/2020 DTL x10(9)/L 5:02 AM ONCOLOGY REP SPECIALIST Neutrophils 8.06 (H) 1.56 - 10/26/2020 DTL 6.45 5:02 AM ONCOLOGY REP SPECIALIST x10(9)/L Lymphocytes 0.86 (L) 0.95 - 10/26/2020 DTL 3.07 5:02 AM ONCOLOGY REP SPECIALIST x10(9)/L Monocytes 1.13 (H) 0.26 - 10/26/2020 DTL 0.81 5:02 AM ONCOLOGY REP SPECIALIST x10(9)/L Eosinophils 0.04 0.03 - 10/26/2020 DTL 0.48 5:02 AM ONCOLOGY REP SPECIALIST x10(9)/L Basophils <0.03 0.01 - 10/26/2020 DTL 0.08 5:02 AM ONCOLOGY REP SPECIALIST x10(9)/L Specimen Anatomical Collection Method Collection Time Receive d Time (Source) Location / / Volume Laterality Blood (Blood, 10/26/2020 4:18 AM 10/26/19 4:55 Venous) ONCOLOGY REP SPECIALIST AM ONCOLOGY REP SPECIALIST oJhn Christianson M.D. LAB BLOOD ADD-ON Performing Organization Address City/State/ZIP Code Phon e Number [facility] - [address] [place] [phone] [facility] [place] [address] [facility] 200 [facility] (ABNORMAL) Basic Metabolic Panel (10/26/2020 4:18 AM ONCOLOGY REP SPECIALIST) athologist Signature Potassium, S 3.8 3.6 - 5.2 10/26/2020 DTL mmol/L 5:22 AM ONCOLOGY REP SPECIALIST Sodium, S 135 135 - 145 10/26/2020 DTL mmol/L 5:22 AM ONCOLOGY REP SPECIALIST Chloride, S 100 98 - 107 10/26/2020 DTL mmol/L 5:22 AM ONCOLOGY REP SPECIALIST Bicarbonate, S 25 22 - 29 10/26/2020 DTL mmol/L 5:22 AM ONCOLOGY REP SPECIALIST Anion Gap 10 7 - 15 10/26/2020 DTL 5:22 AM ONCOLOGY REP SPECIALIST BUN (Blood Urea 14 8 - 24 10/26/2020 DTL Nitrogen), S mg/dL 5:22 AM ONCOLOGY REP SPECIALIST Creatinine 1.01 0.74 - 10/26/2020 DTL 1.35 mg/dL 5:22 AM ONCOLOGY REP SPECIALIST eGFR-Non 83 >=60 10/26/2020 DTL Black/ mL/min/BSA 5:22 AM ONCOLOGY REP SPECIALIST Japanese Comment: ----ADDITIONAL INFORMATION---- Estimated GFR calculated using the 2009 CKD_EPI creatinine equation. eGFR-Black/ >90 >=60 mL/min/BSA 2020 5:22 AM ONCOLOGY REP SPECIALIST DTL Comment: ----ADDITIONAL INFORMATION---- Estimated GFR calculated using the 2009 CKD_EPI creatinine equation. Calcium, Total, S 7.6 (L) 8.6 - 10.0 mg/dL 10/26/2020 5:22 AM ONCOLOGY REP SPECIALIST DTL Glucose, S 71 70 - 140 mg/dL 10/26/2020 5:22 AM ONCOLOGY REP SPECIALIST D TL Specimen Anatomical Collection Method Collection Time Receive d Time (Source) Location / / Volume Laterality Blood (Blood, 10/26/2020 4:18 AM 10/26/19 4:53 Venous) ONCOLOGY REP SPECIALIST AM ONCOLOGY REP SPECIALIST John Christianson M.D. LAB BLOOD ADD-ON Performing Organization Address City/State/ZIP Code Phon e Number [facility] - [address] [place] [phone] [facility] [place] [place] [address] [facility] 200 [facility] (ABNORMAL) CBC with Differential, Blood (10/25/2020 7:26 AM ONCOLOGY REP SPECIALIST) [facility] gist Method Time Signature Hemoglobin 8.0 (L) 13.2 - 10/25/2020 DTL 16.6 g/dL 7:47 AM ONCOLOGY REP SPECIALIST Hematocrit 25.5 (L) 38.3 - 10/25/2020 DTL 48.6 % 7:47 AM ONCOLOGY REP SPECIALIST Erythrocytes 3.29 (L) 4.35 - 10/25/2020 DTL 5.65 7:47 AM ONCOLOGY REP SPECIALIST x10(12)/L MCV 77.5 (L) 78.2 - 10/25/2020 DTL 97.9 fL 7:47 AM ONCOLOGY REP SPECIALIST RBC Distrib Width 15.9 (H) 11.8 - 10/25/2020 DTL 14.5 % 7:47 AM ONCOLOGY REP SPECIALIST Platelet Count 192 135 - 317 10/25/2020 DTL x10(9)/L 7:47 AM ONCOLOGY REP SPECIALIST Leukocytes 10.2 (H) 3.4 - 9.6 10/25/2020 DTL x10(9)/L 7:47 AM ONCOLOGY REP SPECIALIST Neutrophils 7.97 (H) 1.56 - 10/25/2020 DTL 6.45 7:47 AM ONCOLOGY REP SPECIALIST x10(9)/L Lymphocytes 0.96 0.95 - 10/25/2020 DTL 3.07 7:47 AM ONCOLOGY REP SPECIALIST x10(9)/L Monocytes 1.24 (H) 0.26 - 10/25/2020 DTL 0.81 7:47 AM ONCOLOGY REP SPECIALIST x10(9)/L Eosinophils 0.04 0.03 - 10/25/2020 DTL 0.48 7:47 AM ONCOLOGY REP SPECIALIST x10(9)/L Basophils <0.03 0.01 - 10/25/2020 DTL 0.08 7:47 AM ONCOLOGY REP SPECIALIST x10(9)/L Specimen Anatomical Collection Method Collection Time Receive d Time (Source) Location / / Volume Laterality Blood (Blood, 10/25/2020 7:26 AM 10/25/19 7:36 Venous) ONCOLOGY REP SPECIALIST AM ONCOLOGY REP SPECIALIST Aramis Donohue M.D. LAB BLOOD ADD-ON Performing Organization Address City/[facility] Phon e Number [facility] [address] Phosphorus Inorganic (10/25/2020 7:26 AM ONCOLOGY REP SPECIALIST) P athologist Signature Phosphorus 3.6 2.5 - 4.5 10/25/2020 DTL (Inorganic), S mg/dL 8:50 AM ONCOLOGY REP SPECIALIST Specimen Anatomical Collection Method Collection Time Receive d Time (Source) Location / / Volume Laterality Blood (Blood, 10/25/2020 7:26 AM 10/25/19 7:36 Venous) ONCOLOGY REP SPECIALIST AM ONCOLOGY REP SPECIALIST Aramis Donohue M.D. LAB BLOOD ADD-ON Performing Organization Address City/[facility] Phon e Number [facility] [address] Magnesium (10/25/2020 7:26 AM ONCOLOGY REP SPECIALIST) P athologist Signature Magnesium, S 2.2 1.7 - 2.3 10/25/2020 DTL mg/dL 8:12 AM ONCOLOGY REP SPECIALIST Specimen Anatomical Collection Method Collection Time Receive d Time (Source) Location / / Volume Laterality Blood (Blood, 10/25/2020 7:26 AM 10/25/19 7:36 Venous) ONCOLOGY REP SPECIALIST AM ONCOLOGY REP SPECIALIST Aramis Donohue M.D. LAB BLOOD ADD-ON Performing Organization Address City/State/ZIP Code Phon e Number [facility] - [address] [place], [place] [address] [facility] [place] [address] [facility] [address] (ABNORMAL) Comprehensive Metabolic Panel (10/25/2020 7:26 AM ONCOLOGY REP SPECIALIST) P athologist Signature Potassium, S 3.8 3.6 - 5.2 10/25/2020 DTL mmol/L 8:12 AM ONCOLOGY REP SPECIALIST Sodium, S 136 135 - 145 10/25/2020 DTL mmol/L 8:12 AM ONCOLOGY REP SPECIALIST Chloride, S 102 98 - 107 10/25/2020 DTL mmol/L 8:12 AM ONCOLOGY REP SPECIALIST Bicarbonate, S 25 22 - 29 10/25/2020 DTL mmol/L 8:12 AM ONCOLOGY REP SPECIALIST Anion Gap 9 7 - 15 10/25/2020 DTL 8:12 AM ONCOLOGY REP SPECIALIST BUN (Blood Urea 11 8 - 24 10/25/2020 DTL Nitrogen), S mg/dL 8:12 AM ONCOLOGY REP SPECIALIST Creatinine 0.98 0.74 - 10/25/2020 DTL 1.35 mg/dL 8:12 AM ONCOLOGY REP SPECIALIST eGFR-Non 86 >=60 10/25/2020 DTL Black/ mL/min/BSA 8:12 AM ONCOLOGY REP SPECIALIST Japanese Comment: ----ADDITIONAL INFORMATION---- Estimated GFR calculated using the 2009 CKD_EPI creatinine equation. eGFR-Black/ >90 >=60 mL/min/BSA 2020 8:12 AM ONCOLOGY REP SPECIALIST DTL Comment: ----ADDITIONAL INFORMATION---- Estimated GFR calculated using the 2009 CKD_EPI creatinine equation. Calcium, Total, S 7.7 (L) 8.6 - 10.0 mg/dL 10/25/2020 8:12 AM ONCOLOGY REP SPECIALIST DTL Glucose, S 95 70 - 140 mg/dL 10/25/2020 8:12 AM ONCOLOGY REP SPECIALIST D TL Protein, Total, S 4.9 (L) 6.3 - 7.9 g/dL 10/25/2020 8:12 A M ONCOLOGY REP SPECIALIST DTL Albumin, S 2.0 (L) 3.5 - 5.0 g/dL 10/25/2020 8:12 AM ONCOLOGY REP SPECIALIST D TL Aspartate Aminotransferase 11 8 - 48 U/L 10/25/2020 8 :12 AM ONCOLOGY REP SPECIALIST DTL (AST), S Alkaline Phosphatase, S 111 40 - 129 U/L 10/25/2020 8: 12 AM ONCOLOGY REP SPECIALIST DTL Alanine Aminotransferase 11 7 - 55 U/L 10/25/2020 8:1 2 AM ONCOLOGY REP SPECIALIST DTL (ALT), S Bilirubin, Total, S 0.6 <=1.2 mg/dL 10/25/2020 8:12 AM ONCOLOGY REP SPECIALIST DTL Specimen Anatomical Collection Method Collection Time Receive d Time (Source) Location / / Volume Laterality Blood (Blood, 10/25/2020 7:26 AM 10/25/19 7:36 Venous) ONCOLOGY REP SPECIALIST AM ONCOLOGY REP SPECIALIST Aramis Donohue M.D. LAB BLOOD ADD-ON Performing Organization Address City/State/ZIP Code Phon e Number [facility] - [address] [place], [place] [address] [facility] [place] [place] [address] [facility] [address] US Upper Extremity Veins Right (10/24/2020 12:44 PM ONCOLOGY REP SPECIALIST) Anatomical Region Laterality Modality Upper Extremity, Ultrasound RST LOS, Ultrasound ARZ LOS, Rig ht Ultrasound Ultrasound FLA LOS Specimen (Source) Anatomical Collection Method Collection Time Re ceived Time Location / / Volume Laterality 10/24/2020 12:58 PM ONCOLOGY REP SPECIALIST Impressions 10/24/2020 1:07 PM ONCOLOGY REP SPECIALIST Negative for acute DVT. Probable phlebitis involving the right basilic vein. Narrative 10/24/2020 1:07 PM ONCOLOGY REP SPECIALIST EXAM: US UPPER EXTREMITY VEINS RIGHT Exam performed with color and spectral D oppler analysis. COMPARISON: None. FINDINGS: RIGHT: Long-segment, circumferential, hy poechoic thickening of the right basilic vein much more likely represents inflamm atory change than chronic thrombus. Right upper extremity otherwise negative . Specifically, the discretion internal jugular, upper innominate, subclavian, a xillary, and brachial veins are patent and negative for thrombus. The cephalic vein to the level of the elbow is patent and negative for thrombus. Procedure Note Mil Deleon M.D. - 10/24/2020Formatti ng of this note might be different from the original. EXAM: US UPPER EXTREMITY VEINS RIGHT Exam performed with color and spectral D oppler analysis. COMPARISON: None. FINDINGS: RIGHT: Long-segment, circumferential, hy poechoic thickening of the right basilic vein much more likely represents inflamm atory change than chronic thrombus. Right upper extremity otherwise negative . Specifically, the discretion internal jugular, upper innominate, subclavian, a xillary, and brachial veins are patent and negative for thrombus. The cephalic vein to the level of the elbow is patent and negative for thrombus. IMPRESSION: Negative for acute DVT. Probable phlebit is involving the right basilic vein. Aramis WONG US PROCEDURES (ABNORMAL) Renal Function Panel (10/24/2020 4:42 AM ONCOLOGY REP SPECIALIST) P athologist Signature Potassium, S 3.6 3.6 - 5.2 10/24/2020 DTL mmol/L 5:18 AM ONCOLOGY REP SPECIALIST Sodium, S 133 (L) 135 - 145 10/24/2020 DTL mmol/L 5:18 AM ONCOLOGY REP SPECIALIST Chloride, S 100 98 - 107 10/24/2020 DTL mmol/L 5:18 AM ONCOLOGY REP SPECIALIST Bicarbonate, S 24 22 - 29 10/24/2020 DTL mmol/L 5:18 AM ONCOLOGY REP SPECIALIST Anion Gap 9 7 - 15 10/24/2020 DTL 5:18 AM ONCOLOGY REP SPECIALIST BUN (Blood Urea 10 8 - 24 10/24/2020 DTL Nitrogen), S mg/dL 5:18 AM ONCOLOGY REP SPECIALIST Creatinine 0.93 0.74 - 10/24/2020 DTL 1.35 mg/dL 5:18 AM ONCOLOGY REP SPECIALIST eGFR-Non >90 >=60 10/24/2020 DTL Black/ mL/min/BSA 5:18 AM ONCOLOGY REP SPECIALIST Japanese Comment: ----ADDITIONAL INFORMATION---- Estimated GFR calculated using the 2009 CKD_EPI creatinine equation. eGFR-Black/ >90 >=60 mL/min/BSA 2020 5:18 AM ONCOLOGY REP SPECIALIST DTL Comment: ----ADDITIONAL INFORMATION---- Estimated GFR calculated using the 2009 CKD_EPI creatinine equation. Calcium, Total, S 7.6 (L) 8.6 - 10.0 mg/dL 10/24/2020 5:18 AM ONCOLOGY REP SPECIALIST DTL Glucose, S 106 70 - 140 mg/dL 10/24/2020 5:18 AM ONCOLOGY REP SPECIALIST D TL Albumin, S 2.2 (L) 3.5 - 5.0 g/dL 10/24/2020 5:18 AM ONCOLOGY REP SPECIALIST D TL Phosphorus (Inorganic), S 1.6 (L) 2.5 - 4.5 mg/dL 10/24/19 5:18 AM ONCOLOGY REP SPECIALIST DTL Specimen Anatomical Collection Method Collection Time Receive d Time (Source) Location / / Volume Laterality Blood (Blood, 10/24/2020 4:42 AM 10/24/19 4:51 Venous) ONCOLOGY REP SPECIALIST AM ONCOLOGY REP SPECIALIST Margarita Jerez APRN, C.N.P., M.S.N. LAB BLOOD ADD-ON Performing Organization Address City/State/ZIP Code Phon e Number [facility] - [address] [place] [phone] [facility] [place] [address] Laboratories-[facility] 200 [facility] (ABNORMAL) CBC with Differential, Blood (10/24/2020 4:42 AM ONCOLOGY REP SPECIALIST) [facility] gist Method Time Signature Hemoglobin 8.3 (L) 13.2 - 10/24/2020 DTL 16.6 g/dL 5:01 AM ONCOLOGY REP SPECIALIST Hematocrit 25.8 (L) 38.3 - 10/24/2020 DTL 48.6 % 5:01 AM ONCOLOGY REP SPECIALIST Erythrocytes 3.35 (L) 4.35 - 10/24/2020 DTL 5.65 5:01 AM ONCOLOGY REP SPECIALIST x10(12)/L MCV 77.0 (L) 78.2 - 10/24/2020 DTL 97.9 fL 5:01 AM ONCOLOGY REP SPECIALIST RBC Distrib Width 15.5 (H) 11.8 - 10/24/2020 DTL 14.5 % 5:01 AM ONCOLOGY REP SPECIALIST Platelet Count 182 135 - 317 10/24/2020 DTL x10(9)/L 5:01 AM ONCOLOGY REP SPECIALIST Leukocytes 15.1 (H) 3.4 - 9.6 10/24/2020 DTL x10(9)/L 5:01 AM ONCOLOGY REP SPECIALIST Neutrophils 12.60 (H) 1.56 - 10/24/2020 DTL 6.45 5:01 AM ONCOLOGY REP SPECIALIST x10(9)/L Lymphocytes 0.74 (L) 0.95 - 10/24/2020 DTL 3.07 5:01 AM ONCOLOGY REP SPECIALIST x10(9)/L Monocytes 1.73 (H) 0.26 - 10/24/2020 DTL 0.81 5:01 AM ONCOLOGY REP SPECIALIST x10(9)/L Eosinophils <0.03 0.03 - 10/24/2020 DTL 0.48 5:01 AM ONCOLOGY REP SPECIALIST x10(9)/L Basophils <0.03 0.01 - 10/24/2020 DTL 0.08 5:01 AM ONCOLOGY REP SPECIALIST x10(9)/L Specimen Anatomical Collection Method Collection Time Receive d Time (Source) Location / / Volume Laterality Blood (Blood, 10/24/2020 4:42 AM 10/24/19 4:52 Venous) ONCOLOGY REP SPECIALIST AM ONCOLOGY REP SPECIALIST Margarita Jerez APRN, C.N.P., M.S.N. LAB BLOOD ADD-ON Performing Organization Address City/State/ZIP Code Phon e Number [facility] - [address] [place], [place] [address] [facility] [place] [address] [facility] [address] [facility] Critical Care (10/23/2020 6:17 PM ONCOLOGY REP SPECIALIST) Narrative Benjamín Connell M.D. - 10/23/2020 6: 17 PM ONCOLOGY REP SPECIALIST Benjamín Connell M.D. ? 10/23/2020 ??6:17 PM Critical Care Performed by: Benjamín Connell M.D. Authorized by: Benjamín Connell M.D. Critical care provider statement: Critical care total time (minutes): 45 Critical care time was exclusive of: sep arately billable procedures and treating other patients and teaching gigi e CPR was performed on this patient: no ?? Critical care was necessary to treat or prevent imminent or life-threatening deterioration of the fo llowing conditions: sepsis Critical care was time spent personally by me on the following activities: Development of treatment plan with patie nt or surrogate, discussions with consultants, evaluation of patient's res ponse to treatment, examination of patient, obtaining history from patient or surrogate, ordering and performing treatments and interventions, ordering and review of laboratory studies, ordering and review of radiogra phic studies, pulse oximetry, re-evaluation of patient's condition, re view of old charts and interpretation of cardiac output measure ments I assumed direction of critical care for this patient from another provider in my specialty: yes ?? Benjamín Connell M.D. PROCEDURE/MINOR SURGICAL ORD ERABLES SARS Coronavirus 2, Molecular Detection, PCR, Varies Asymptomatic (10/23/2020 11:36 AM ONCOLOGY REP SPECIALIST) Patholo gist Method Time Signature COVID-19, Swab, 10/23/2020 DTL PCR, Source Nasopharynx 2:57 PM ONCOLOGY REP SPECIALIST COVID-19, Undetected Undetected 10/23/2020 DTL PCR, Result 2:57 PM ONCOLOGY REP SPECIALIST Comment: SARS-CoV-2 RNA absent. This result does not rule out COVID-19 in the patient, as the sensitivity of the test depends o n the timing of the specimen collection and quality of the specimen. Result should be correlated with patient's history and clinical presentat ion. ----ADDITIONAL INFORMATION---- This test was developed and its performa nce characteristics determined by [facility] in a manner consistent with CLIA requirements. This test has not been cleared or approved by the [place] and Drug Administration. Specimen Anatomical Collection Method Collection Time Receive d Time (Source) Location / / Volume Laterality Varies 10/23/2020 11:36 10/23/2020 (Nasopharynx) AM ONCOLOGY REP SPECIALIST 12:07 PM ONCOLOGY REP SPECIALIST Pratik Garvey APRNN.P., M.S.N. LAB MICROBIOLOGY - GENERAL ORDERABLES Performing Organization Address City/[facility]/ZIP Code Phon e Number [facility] - [address] [place] [address] [facility] 200 [facility] Lactate (10/23/2020 10:42 AM ONCOLOGY REP SPECIALIST) P athologist Signature Lactate, P 1.0 0.5 - 2.2 10/23/2020 STMA mmol/L 11:35 AM ONCOLOGY REP SPECIALIST Specimen Anatomical Collection Method Collection Time Receive d Time (Source) Location / / Volume Laterality Blood (Blood, 10/23/2020 10:42 10/23/2020 Venous) AM ONCOLOGY REP SPECIALIST 11:07 AM ONCOLOGY REP SPECIALIST Mary Busch P.A.-C. LAB BLOOD NON ADD-ON Performing Organization Address City/[facility]/ZIP Code Phon e Number [facility] - [address] [place], [place] [address] [facility] [place] [address] [facility] 200 [facility] Lactate (10/23/2020 8:11 AM ONCOLOGY REP SPECIALIST) P athologist Signature Lactate, P 1.1 0.5 - 2.2 10/23/2020 STMA mmol/L 8:35 AM ONCOLOGY REP SPECIALIST Specimen Anatomical Collection Method Collection Time Receive d Time (Source) Location / / Volume Laterality Blood (Blood, 10/23/2020 8:11 AM 10/23/19 8:23 Venous) ONCOLOGY REP SPECIALIST AM ONCOLOGY REP SPECIALIST Mary Busch P.A.-C. LAB BLOOD NON ADD-ON Performing Organization Address City/[facility] Phon e Number [facility] - [address] [place], [place] [address] [place] [id number] Lactate, POCT (10/23/2020 8:10 AM ONCOLOGY REP SPECIALIST) Analysis Performed At Patho logist Time Signature Lactate, POCT Collected DEFAULT 10/23/2020 SMLX 8:10 AM ONCOLOGY REP SPECIALIST Specimen Anatomical Collection Method Collection Time Receive d Time (Source) Location / / Volume Laterality Blood (Blood, 10/23/2020 8:10 AM 10/23/19 8:10 Venous) ONCOLOGY REP SPECIALIST AM ONCOLOGY REP SPECIALIST Mary Busch P.A.-C. LAB POCT ORDERABLES - DEVICE Performing Organization Address [facility] Phon e Number [facility] [address] [place], [place] [address] [facility] [place] [address] Bacteria / Maxwell Culture, Blood # 2 (10/23/2020 8:10 AM ONCOLOGY REP SPECIALIST) Patholo gist Method Time Signature Bacteria/Jane No growth 10/28/2020 DTL da Culture, after 5 10:02 AM ONCOLOGY REP SPECIALIST Blood days of incubation. Specimen (Source) Anatomical Collection Method Collection Time Re ceived Time Location / / Volume Laterality Blood (Blood, 10/23/2020 8:10 10/23/2020 9:07 Peripheral Draw) AM ONCOLOGY REP SPECIALIST AM ONCOLOGY REP SPECIALIST Comment: Specimen Source Site: Blood Narrative [facility] - 10/28/2020 10:02 AM ONCOLOGY REP SPECIALIST Received Bactec Peds bottle Specimen Information: Specimen ID: [id number] Specimen Source: Blood, Peripheral Draw Specimen Comment: Specimen Source Site: Blood Specimen Collection Start Date: 10/23/19 ??8:10 AM Specimen Received Date: 10/23/2020 ??9:0 7 AM Specimen ID: [id number] Specimen Source: Blood, Peripheral Draw Specimen Comment: Specimen Source Site: Blood Specimen Collection Start Date: 10/23/19 ??8:10 AM Specimen Received Date: 10/23/2020 ??9:0 7 AM Specimen ID: [id number] Specimen Source: Blood, Peripheral Draw Specimen Comment: Specimen Source Site: Blood Specimen Collection Start Date: 10/23/19 ??8:10 AM Specimen Received Date: 10/23/2020 ??9:0 7 AM Mary Busch P.A.-C. LAB MICROBIOLOGY - GENERAL O RDERABLES Performing Organization Address City/State/ZIP Code Phon e Number [facility] [address] [place] [phone] [place] [address] [facility] 200 [facility] Bacteria / Maxwell Culture, Blood #1 (10/23/2020 8:10 AM ONCOLOGY REP SPECIALIST) [facility] Method Time Signature Bacteria/Jane No growth 10/28/2020 DT da Culture, after 5 10:02 AM ONCOLOGY REP SPECIALIST Blood days of incubation. Specimen (Source) Anatomical Collection Method Collection Time Re ceived Time Location / / Volume Laterality Blood (Blood, 10/23/2020 8:10 10/23/2020 9:06 Peripheral Draw) AM ONCOLOGY REP SPECIALIST AM ONCOLOGY REP SPECIALIST Comment: Specimen Source Site: Blood Narrative [facility] - 10/28/2020 10:02 AM ONCOLOGY REP SPECIALIST Specimen Information: Specimen ID: [id number] Specimen Source: Blood, Peripheral Draw Specimen Comment: Specimen Source Site: Blood Specimen Collection Start Date: 10/23/19 ??8:11 AM Specimen Received Date: 10/23/2020 ??9:0 6 AM Specimen ID: [id number] Specimen Source: Blood, Peripheral Draw Specimen Comment: Specimen Source Site: Blood Specimen Collection Start Date: 10/23/19 21 ??8:10 AM Specimen Received Date: 10/23/2020 ??9:0 6 AM Specimen ID: [id number] Specimen Source: Blood, Peripheral Draw Specimen Comment: Specimen Source Site: Blood Specimen Collection Start Date: 10/23/19 21 ??8:10 AM Specimen Received Date: 10/23/2020 ??9:0 6 AM Mary Busch P.A.-C. LAB MICROBIOLOGY - GENERAL O RDERABLES Performing Organization Address City/State/ZIP [facility] Phon e Number [facility] - [address] [place], [place] [address] [facility] [place] [place] [address] [facility] [address] Lactate, POCT (10/23/2020 8:05 AM ONCOLOGY REP SPECIALIST) P athologist Signature Lactate, POCT 0.73 0.50 - 10/23/2020 PCLX 2.20 8:22 AM ONCOLOGY REP SPECIALIST mmol/L Sample Site, Venstick 10/23/2020 PCLX POCT 8:22 AM ONCOLOGY REP SPECIALIST Specimen Anatomical Collection Method Collection Time Receive d Time (Source) Location / / Volume Laterality Blood 10/23/2020 8:05 AM 8:22 ONCOLOGY REP SPECIALIST AM ONCOLOGY REP SPECIALIST Unknown Provider LAB POCT ORDERABLES - DEVICE Performing Organization Address [facility] Phon e Number POC [facility] [address] [place] [address] [place] [address] [place] [facility] [address] Type and Screen (with reflex Antibody ID) (10/23/2020 6:58 AM ONCOLOGY REP SPECIALIST) Patholo gist Method Time Signature ABORh A Pos Not 10/23/2020 STRM applicable 7:47 AM ONCOLOGY REP SPECIALIST Antibody Negative Negative 10/23/2020 STRM Screen 7:49 AM ONCOLOGY REP SPECIALIST Type & Screen 10/26/2020 10/23/2020 STRM Expiration 23:59 7:47 AM ONCOLOGY REP SPECIALIST Testing [place] DEFAULT 10/23/2020 STRM Location 7:06 AM ONCOLOGY REP SPECIALIST Specimen Anatomical Collection Method Collection Time Receive d Time (Source) Location / / Volume Laterality Blood (Blood, 10/23/2020 6:58 AM 10/23/19 7:06 Venous) ONCOLOGY REP SPECIALIST AM ONCOLOGY REP SPECIALIST Benjamín Connell M.D. LAB BLOOD BANK TEST ORDERABL ES Performing Organization Address City/State/ZIP Code Phon e Number [facility] - [address] [place], [place] [address] [facility] [place] [address] [facility] [address] Abdomen Pelvis with IV Contrast (10/23/2020 6:04 AM ONCOLOGY REP SPECIALIST) Anatomical Region Laterality Modality Abdomen, Pelvis, Abdominal RST LOS, N/A Comp uted Tomography, Computed Abdominal ARZ LOS, Abdominal FLA LOS Dileep ography Specimen (Source) Anatomical Collection Method Collection Time Re ceived Time Location / / Volume Laterality 10/23/2020 6:18 AM ONCOLOGY REP SPECIALIST Impressions 10/23/2020 7:12 AM ONCOLOGY REP SPECIALIST 1. 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 2. Small left pleural effusion with comp ressive atelectasis in the left base is again seen. Narrative 10/23/2020 7:12 AM ONCOLOGY REP SPECIALIST EXAM: ??CT ABDOMEN PELVIS WITH IV CONTRAST COMPARISON: ??CTA chest 10/23/2020, [facility] CT abdomen and pelvis 10/17/2020 and [facility] CT 10/05/2020 FINDINGS: ??Since the prior CT, there is increased extensive gas within the rim-enhancing multifocal upper abdominal fluid collection. A collection near the gastric fundus measures approximately 7. 8 x 4.5 cm (series 4 image 47) and communicates with a larger contiguous co llection extending along the body and tail of the pancreas and into the left p aracolic gutter where there is a large collection measuring up to 5.8 x 14.7 cm , previously 5 x 11 cm (series 4 image 51). Again seen is an enhancing 2.4 x 2 cm ma ss in the uncinate process of the pancreas. (Series 3 image 70). No pancre atic duct dilatation. Metallic biliary stent. Occluded splenic vein with collat erals. Pneumobilia in the left hepatic lobe and gas within the gallbladder. The adrenal glands, kidneys, and spleen are normal. Embolization coils in the left gonadal vein. Contrast in the bladder from prior contrast enhanced CT. Small left pleural effusion with ramírez sive atelectasis left lower lobe. Additional atelectasis in the right midd le lobe, lingula, and right lower lobe. Procedure Note Raymond Adorno M.D. - 10/23/2020Formatt ing of this note might be different from the original. EXAM: CT ABDOMEN PELVIS WITH IV CONTRAST COMPARISON: CTA chest 10/23/2020, Outsid e CT abdomen and pelvis 10/17/2020 and [facility] CT 10/05/2020 FINDINGS: Since the prior CT, there is i ncreased extensive gas within the rim-enhancing multifocal upper abdominal fluid collection. A collection near the gastric fundus measures approximately 7. 8 x 4.5 cm (series 4 image 47) and communicates with a larger contiguous co llection extending along the body and tail of the pancreas and into the left p aracolic gutter where there is a large collection measuring up to 5.8 x 14.7 cm , previously 5 x 11 cm (series 4 image 51). Again seen is an enhancing 2.4 x 2 cm ma ss in the uncinate process of the pancreas. (Series 3 image 70). No pancre atic duct dilatation. Metallic biliary stent. Occluded splenic vein with collat erals. Pneumobilia in the left hepatic lobe and gas within the gallbladder. The adrenal glands, kidneys, and spleen are normal. Embolization coils in the left gonadal vein. Contrast in the bladder from prior contrast enhanced CT. Small left pleural effusion with ramírez sive atelectasis left lower lobe. Additional atelectasis in the right midd le lobe, lingula, and right lower lobe. IMPRESSION: 1. 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 2. Small left pleural effusion with comp ressive atelectasis in the left base is again seen. Tawanda WONG CT PROCEDURES (ABNORMAL) Lipase (10/23/2020 5:48 AM ONCOLOGY REP SPECIALIST) P athologist Signature Lipase, S 4 (L) 13 - 60 U/L 10/23/2020 6:43 DTL AM ONCOLOGY REP SPECIALIST Specimen Anatomical Collection Method Collection Time Receive d Time (Source) Location / / Volume Laterality Blood (Blood, 10/23/2020 5:48 AM 10/23/19 6:09 Venous) ONCOLOGY REP SPECIALIST AM ONCOLOGY REP SPECIALIST Tawanda Franco M.D. LAB BLOOD ADD-ON Performing Organization Address City/State/[facility] Code Phon e Number [facility] - [address] [place], [place] [address] [place] [address] [address] (ABNORMAL) Hepatic Function Panel (10/23/2020 5:48 AM ONCOLOGY REP SPECIALIST) [facility] Time Signature Bilirubin, Total, S 0.6 <=1.2 10/23/2020 DTL mg/dL 6:43 AM ONCOLOGY REP SPECIALIST Bilirubin, Direct, S 0.4 (H) 0.0 - 0.3 10/23/2020 DTL mg/dL 6:43 AM ONCOLOGY REP SPECIALIST Aspartate 10 8 - 48 10/23/2020 DTL Aminotransferase U/L 6:43 AM ONCOLOGY REP SPECIALIST (AST), S Alanine 9 7 - 55 10/23/2020 DTL Aminotransferase U/L 6:43 AM ONCOLOGY REP SPECIALIST (ALT), S Alkaline 116 40 - 129 10/23/2020 DTL Phosphatase, S U/L 6:43 AM ONCOLOGY REP SPECIALIST Albumin, S 2.1 (L) 3.5 - 5.0 10/23/2020 DTL g/dL 6:43 AM ONCOLOGY REP SPECIALIST Protein, Total, S 4.7 (L) 6.3 - 7.9 10/23/2020 DTL g/dL 6:43 AM ONCOLOGY REP SPECIALIST Specimen Anatomical Collection Method Collection Time Receive d Time (Source) Location / / Volume Laterality Blood (Blood, 10/23/2020 5:48 AM 10/23/19 6:09 Venous) ONCOLOGY REP SPECIALIST AM ONCOLOGY REP SPECIALIST Tawanda Franco M.D. LAB BLOOD ADD-ON Performing Organization Address City/State/[facility] Code Phon e Number [facility] - [address] [place], [place] [address] [place] [id number] Troponin T, 2H/6H, 5th Gen (10/23/2020 5:48 AM ONCOLOGY REP SPECIALIST) ZANY OX Method Time Signature Troponin T, 2 <6 <=15 ng/L 10/23/2020 STMA hr, 5th gen 6:19 AM ONCOLOGY REP SPECIALIST 2H Delta 0 ng/L 10/23/2020 STMA 6:19 AM ONCOLOGY REP SPECIALIST 2H Delta Not Changing 10/23/2020 [facility] Interp 6:19 AM ONCOLOGY REP SPECIALIST Troponin T, 6 CANCELED ng/L 10/23/2020 [facility] hr, 5th gen 6:19 AM ONCOLOGY REP SPECIALIST Comment: Result canceled by the ancillar y. Specimen Anatomical Collection Method Collection Time Receive d Time (Source) Location / / Volume Laterality Blood (Blood, 10/23/2020 5:48 AM 10/23/19 5:52 Venous) ONCOLOGY REP SPECIALIST AM ONCOLOGY REP SPECIALIST Narrative [facility] - [facility] - 10/23/2020 6:19 AM ONCOLOGY REP SPECIALIST Specimen Information: Specimen ID: [id number] Specimen Type: Blood Specimen Collection Start Date: 10/23/19 ??5:48 AM Specimen Received Date: 10/23/2020 ??5:5 2 AM Specimen ID: [id number] Specimen Type: Blood Damian Prajapati M.D., Ph.D. LAB BLOOD TROPONIN Performing Organization Address City/State/ZIP Code Phon e Number [facility] - [address] [place] [address] 05 [place] [address] [facility] [address] [facility] [address] Chest Angiogram and Pulmonary Arteries with IV Contrast (10/23/2020 5:18 AM ONCOLOGY REP SPECIALIST) Anatomical Region Laterality Modality Chest, Cardiovascular RST LOS, Thoracic N/A Computed Tomography, Computed ARZ LOS, Thoracic FLA LOS Tomography Specimen (Source) Anatomical Collection Method Collection Time Re ceived Time Location / / Volume Laterality 10/23/2020 5:22 AM ONCOLOGY REP SPECIALIST Impressions 10/23/2020 5:53 AM ONCOLOGY REP SPECIALIST 1. Negative for acute pulmonary embolism. 2. Complicated fluid and gas collections along the greater curvature of the stomach and adjacent to the spleen, susp icious for infection. 3. Small left pleural effusion. 4. Atelectasis in the lung bases. Narrative 10/23/2020 5:53 AM ONCOLOGY REP SPECIALIST EXAM: ??CT CHEST ANGIOGRAM AND PULMONARY ARTERIES WITH IV CONTRAST COMPARISON: ??Outside CT chest FINDINGS: Negative for acute pulmonary embolism. B orderline dilatation of the main pulmonary artery, measuring up to 31 mm. Grossly normal cardiac chamber sizes. Small left pleural effusion with ramírez sive atelectasis of the left lower lobe. Linear and subsegmental atelectasis in t he right middle lobe, lingula, and right lower lobe. The left pleural effusion co ntains a focus of aerated lung within the compressive atelectasis. Several sca ttered small pulmonary nodules are unchanged, including a 4 mm nodule in th e right apex (series 6 image 93), and a pleural-based nodule in the anterior rig ht middle lobe measuring 6 mm (series 6 image 361). No thoracic lymphadenopathy. Mild degene rative changes of the thoracic spine. Pneumobilia. Complicated gas and fluid c ollections in the visualized upper abdomen along the greater curvature of t he stomach and adjacent to the spleen. The gas is new since the prior outside C T and concerning for infection. Procedure Note Raymond Adorno M.D. - 10/23/2020Formatt ing of this note might be different from the original. EXAM: CT CHEST ANGIOGRAM AND PULMONARY A RTERIES WITH IV CONTRAST COMPARISON: Outside CT chest 08/12/2020 FINDINGS: Negative for acute pulmonary embolism. B orderline dilatation of the main pulmonary artery, measuring up to 31 mm. Grossly normal cardiac chamber sizes. Small left pleural effusion with ramírez sive atelectasis of the left lower lobe. Linear and subsegmental atelectasis in t he right middle lobe, lingula, and right lower lobe. The left pleural effusion co ntains a focus of aerated lung within the compressive atelectasis. Several sca ttered small pulmonary nodules are unchanged, including a 4 mm nodule in th e right apex (series 6 image 93), and a pleural-based nodule in the anterior rig ht middle lobe measuring 6 mm (series 6 image 361). No thoracic lymphadenopathy. Mild degene rative changes of the thoracic spine. Pneumobilia. Complicated gas and fluid c ollections in the visualized upper abdomen along the greater curvature of t he stomach and adjacent to the spleen. The gas is new since the prior outside C T and concerning for infection. IMPRESSION: 1. Negative for acute pulmonary embolism . 2. Complicated fluid and gas collections along the greater curvature of the stomach and adjacent to the spleen, susp icious for infection. 3. Small left pleural effusion. 4. Atelectasis in the lung bases. Damian Prajapati M.D., Ph.D. IMG CT PROCEDURES CT Head without IV Contrast (10/23/2020 5:18 AM ONCOLOGY REP SPECIALIST) Anatomical Region Laterality Modality Head, Neuroradiology RST LOS, N/A Computed T omography, Computed Neuroradiology ARZ LOS, Neuroradiology T omography [facility] Specimen (Source) Anatomical Collection Method Collection Time Re ceived Time Location / / Volume Laterality 10/23/2020 5:19 AM ONCOLOGY REP SPECIALIST Impressions 10/23/2020 7:07 AM ONCOLOGY REP SPECIALIST No acute intracranial findings. Narrative 10/23/2020 7:07 AM ONCOLOGY REP SPECIALIST EXAM: CT HEAD WITHOUT IV CONTRAST COMPARISON: PET CT 08/19/2020 FINDINGS: No intracranial hemorrhage, ma ss effect, or evidence of acute infarction. The basal cisterns are paten t. No extra-axial fluid collection. The paranasal sinuses and mastoid air cells are clear. Mild leftward nasal septal deviation. Procedure Note Salty Boo M.D. - 10/23/2020For matting of this note might be different from the original. EXAM: CT HEAD WITHOUT IV CONTRAST COMPARISON: PET CT 08/19/2020 FINDINGS: No intracranial hemorrhage, ma ss effect, or evidence of acute infarction. The basal cisterns are paten t. No extra-axial fluid collection. The paranasal sinuses and mastoid air cells are clear. Mild leftward nasal septal deviation. IMPRESSION: No acute intracranial findings. Damian Prajapati M.D., Ph.D. IMG CT PROCEDURES DX Chest Portable 1 View (10/23/2020 4:16 AM ONCOLOGY REP SPECIALIST) Anatomical Region Laterality Modality Chest, Thoracic RST LOS, Thoracic ARZ LOS, Thoracic N/A [facility] Specimen (Source) Anatomical Collection Method Collection Time Re ceived Time Location / / Volume Laterality 10/23/2020 4:17 AM ONCOLOGY REP SPECIALIST Impressions 10/23/2020 9:00 AM ONCOLOGY REP SPECIALIST Compared with the chest radiograph of 08/12/2020. Lower lung volumes and increased left greater the r ight basilar opacities, most likely due to atelectasis, although infection canno t be excluded. No other significant change. Small left pleural effusion. Par tially visualized common bile duct stent. Narrative 10/23/2020 9:00 AM ONCOLOGY REP SPECIALIST EXAM: ??DX CHEST PORTABLE 1 VIEW Procedure Note Raymond Adorno M.D. - 10/23/2020Formatt ing of this note might be different from the original. EXAM: DX CHEST PORTABLE 1 VIEW IMPRESSION: Compared with the chest radiograph of . Lower lung volumes and increased left greater the r ight basilar opacities, most likely due to atelectasis, although infection canno t be excluded. No other significant change. Small left pleural effusion. Par jayllrojas visualized common bile duct stent. Damian Prajapati M.D., Ph.D. [facility] DI[facility]NO[facility]IC IMAG[facility] PROC EDURES Troponin T, Baseline, 5th gen (10/23/2020 4:07 AM ONCOLOGY REP SPECIALIST) P athologist Signature Troponin T, <6 <=15 ng/L 10/23/2020 [facility] Baseline, 5th 5:00 AM ONCOLOGY REP SPECIALIST gen Specimen Anatomical Collection Method Collection Time Receive d Time (Source) Location / / Volume Laterality Blood (Blood, 10/23/2020 4:07 AM 10/23/19 4:11 Venous) ONCOLOGY REP SPECIALIST AM ONCOLOGY REP SPECIALIST Damian Prajapati M.D., Ph.D. LAB BLOOD TROPONIN Performing Organization Address City/State/ZIP Code Phon e Number [facility] - [address] [place], [place] [address] [place] [address] [facility] [address] (ABNORMAL) Basic Metabolic Panel (10/23/2020 4:07 AM ONCOLOGY REP SPECIALIST) Analysis Performed At Patho logist Time Signature Potassium, P 3.8 3.6 - 5.2 10/23/2020 [facility] mmol/L 4:28 AM ONCOLOGY REP SPECIALIST Sodium, P 132 (L) 135 - 145 10/23/2020 [facility] mmol/L 4:28 AM ONCOLOGY REP SPECIALIST Chloride, P 97 (L) 98 - 107 10/23/2020 [facility] mmol/L 4:28 AM ONCOLOGY REP SPECIALIST Bicarbonate, P 28 22 - 29 10/23/2020 [facility] mmol/L 4:28 AM ONCOLOGY REP SPECIALIST Anion Gap, P 7 7 - 15 10/23/2020 [facility] 4:28 AM ONCOLOGY REP SPECIALIST BUN (Blood Urea 12 8 - 24 10/23/2020 [facility] Nitrogen), P mg/dL 4:28 AM ONCOLOGY REP SPECIALIST Creatinine 0.73 (L) 0.74 - 10/23/2020 [facility] 1.35 mg/dL 4:28 AM ONCOLOGY REP SPECIALIST eGFR-Black/Afri >90 >=60 10/23/2020 [facility] can Japanese mL/min/BSA 4:28 AM ONCOLOGY REP SPECIALIST Comment: ----ADDITIONAL INFORMATION---- Estimated GFR calculated using the 2009 CKD_EPI creatinine equation. eGFR Non-Black/ >90 >=60 mL/min/BSA 10/23/2020 4:28 AM ONCOLOGY REP SPECIALIST [facility] Comment: ----ADDITIONAL INFORMATION---- Estimated GFR calculated using the 2009 CKD_EPI creatinine equation. Calcium, Total, P 7.9 (L) 8.6 - 10.0 mg/dL 10/23/2020 4:28 AM ONCOLOGY REP SPECIALIST [facility] Glucose, P 124 70 - 140 mg/dL 10/23/2020 4:28 AM ONCOLOGY REP SPECIALIST S [facility] Specimen Anatomical Collection Method Collection Time Receive d Time (Source) Location / / Volume Laterality Blood (Blood, 10/23/2020 4:07 AM 10/23/19 4:11 Venous) ONCOLOGY REP SPECIALIST AM ONCOLOGY REP SPECIALIST Damian Prajapati M.D., Ph.D. LAB BLOOD ADD-ON Performing Organization Address City/State/ZIP Code Phon e Number [facility] - [address] [place], [place] [address] [place] [address] [facility] [address] [facility] (ABNORMAL) CBC with Differential, Blood (10/23/2020 4:07 AM ONCOLOGY REP SPECIALIST) [facility] Method Time Signature Hemoglobin 7.6 (L) 13.2 - 10/23/2020 [facility] 16.6 g/dL 4:31 AM ONCOLOGY REP SPECIALIST Hematocrit 23.3 (L) 38.3 - 10/23/2020 [facility] 48.6 % 4:31 AM ONCOLOGY REP SPECIALIST Erythrocytes 3.04 (L) 4.35 - 10/23/2020 [facility] 5.65 4:31 AM ONCOLOGY REP SPECIALIST x10(12)/L MCV 76.6 (L) 78.2 - 10/23/2020 [facility] 97.9 fL 4:31 AM ONCOLOGY REP SPECIALIST RBC Distrib Width 15.0 (H) 11.8 - 10/23/2020 [facility] 14.5 % 4:31 AM ONCOLOGY REP SPECIALIST Platelet Count 147 135 - 317 10/23/2020 [facility] x10(9)/L 4:31 AM ONCOLOGY REP SPECIALIST Leukocytes 11.1 (H) 3.4 - 9.6 10/23/2020 [facility] x10(9)/L 5:57 AM ONCOLOGY REP SPECIALIST Comment: Results confirmed by smear. Neutrophils 8.72 (H) 1.56 - 6.45 x10(9)/L 10/23/2020 5:57 A M ONCOLOGY REP SPECIALIST DHPM Lymphocytes 0.70 (L) 0.95 - 3.07 x10(9)/L 10/23/2020 5:57 A M ONCOLOGY REP SPECIALIST [facility] Monocytes 1.68 (H) 0.26 - 0.81 x10(9)/L 10/23/2020 5:57 AM ONCOLOGY REP SPECIALIST [facility] Eosinophils <0.03 0.03 - 0.48 x10(9)/L 10/23/2020 5:57 A M ONCOLOGY REP SPECIALIST [facility] Basophils 0.03 0.01 - 0.08 x10(9)/L 10/23/2020 5:57 AM ONCOLOGY REP SPECIALIST [facility] Specimen Anatomical Collection Method Collection Time Receive d Time (Source) Location / / Volume Laterality Blood (Blood, 10/23/2020 4:07 AM 10/23/19 21 4:11 Venous) ONCOLOGY REP SPECIALIST AM ONCOLOGY REP SPECIALIST Damian Prajapati M.D., Ph.D. LAB BLOOD ADD-ON Performing Organization Address City/State/ZIP Code Phon e Number [facility] - [address] [place], [place] [address] [facility] [place] [address] [facility] [address] [facility] [place] [address] [facility] [address] [facility] ECG 12 Lead (10/23/2020 3:02 AM ONCOLOGY REP SPECIALIST) P athologist Signature Ventricular Rate 98 BPM MUSE ECG/Min WI Interval 150 ms MUSE QRSD Interval 96 ms MUSE QT Interval 362 ms MUSE QTC Interval 462 ms MUSE P [place] 47 degrees MUSE R [place] 14 degrees MUSE T Wave [place] 12 degrees MUSE Specimen Anatomical Collection Method Collection Time Receive d Time (Source) Location / / Volume Laterality 10/23/2020 3:02 AM 6:50 ONCOLOGY REP SPECIALIST AM ONCOLOGY REP SPECIALIST Impressions MUSE - 10/23/2020 6:50 AM ONCOLOGY REP SPECIALIST Normal sinus rhythm Normal ECG When compared with ECG of 21-OCT-2020 07 :13, WI interval has decreased Reviewed by HAROON Simpson Narrative This result has an attachment that is no t available. Procedure Note Atul Higuera Jr., M.D. - 10/23/2020For matting of this note might be different from the original. IMPRESSION: Normal sinus rhythm Normal ECG When compared with ECG of 21-OCT-2020 07 :13, WI interval has decreased Reviewed by HAROON Simpson Tawanda Franco M.D. 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) Hypotension Abdominal Pain Gastroesophageal Reflux Disease NOS Malignant Neoplasm Of Pancreas (HCC) Portal Vein Thrombosis Visual Hallucinations Bacteremia documented in this encounter Admitting Diagnoses Diagnosis Acute Pancreatitis With Infected Necrosi s Unspecified (HCC) Sepsis (HCC) documented in this encounter Administered Medications Inactive Administered Medications - up to 3 most recent administrations Medication Order MAR Action Action Date Dose Rate Site acetaminophen tablet 1,000 mg Given 10/29/2020 8:11 PM ONCOLOGY REP SPECIALIST 1,000 mg (TYLENOL) 1,000 mg, oral, Every 6 hours PRN, mild pain or score 1-3 of 10, fever, Starting on Mon10/23/20 at 1012 Given 10/23/2020 3:21 PM ONCOLOGY REP SPECIALIST 1,000 mg ALPRAZolam tablet 0.5 mg (XANAX) Given 10/29/2020 12:25 AM ONCOLOGY REP SPECIALIST 0.5 mg 0.5 mg, oral, Bedtime PRN, anxiety, Starting on Mon10/25/20 at 0015 Given 10/27/2020 9:44 PM ONCOLOGY REP SPECIALIST 0.5 mg Given 10/25/2020 10:24 PM ONCOLOGY REP SPECIALIST 0.5 mg aspirin chewable tablet 324 mg Given 10/23/2020 4:55 AM ONCOLOGY REP SPECIALIST 324 mg 324 mg, oral, Once, On Mon10/23/20 at 0450, For 1 dose calcium carbonate chewable tablet Given 10/23/2020 5:2 6 AM ONCOLOGY REP SPECIALIST 200 mg of calcium 200 mg of calcium (TUMS) 200 mg of calcium, oral, Once, On Mon10/23/20 at 0503, For 1 dose, Doses listed are in mg of elemental calcium. Take with food. 500 mg calcium carbonate contains 200 mg of elemental calcium. calcium carbonate chewable tablet Given 10/30/2020 12: 05 PM ONCOLOGY REP SPECIALIST 400 mg of calcium 400 mg of calcium (TUMS) 400 mg of calcium, oral, Every 2 hour PRN, heartburn, indigestion, Starting on Mon10/23/20 at 1012, Doses listed are in mg of elemental calcium. Take with food. 500 mg calcium carbonate contains 200 mg of elemental calcium. Given 10/29/2020 6:03 PM ONCOLOGY REP SPECIALIST 400 mg of calcium Given 10/28/2020 3:09 PM ONCOLOGY REP SPECIALIST 400 mg of calcium D5W and NaCl 0.45 % infusion New Bag 10/27/2020 11:39 PM ONCOLOGY REP SPECIALIST 75 mL/hr 75 mL/hr 75 mL/hr, intravenous, Continuous, Starting on Mon10/27/20 at 1030, For 1 day 2 hours Rate/Dose Verify 10/27/2020 2:56 PM ONCOLOGY REP SPECIALIST 75 mL/hr 75 mL/hr Rate/Dose Verify 10/27/2020 12:00 PM ONCOLOGY REP SPECIALIST 75 mL/hr 75 mL/hr D5W and NaCl 0.45 % infusion New Bag 10/29/2020 4:58 PM ONCOLOGY REP SPECIALIST 75 mL/hr 75 mL/hr 75 mL/hr, intravenous, Continuous, Starting on Mon10/29/20 at 1700, For 16 hours enoxaparin injection 40 mg Given 10/27/2020 9:40 AM ONCOLOGY REP SPECIALIST 40 mg Left Lower Abdomen (LOVENOX) 40 mg, subcutaneous, Every 24 hours scheduled, First dose on Mon10/27/20 at 0900 enoxaparin injection 40 mg Given 10/28/2020 10:38 AM ONCOLOGY REP SPECIALIST 40 mg Left Lower Abdomen (LOVENOX) 40 mg, subcutaneous, Every 24 hours scheduled, First dose (after last modification) on Mon10/28/20 at 0915 enoxaparin injection 80 mg Given 10/25/2020 8:50 PM ONCOLOGY REP SPECIALIST 80 mg Left Lower Abdomen (LOVENOX) 80 mg, subcutaneous, 2 times daily, First dose on Mon10/23/20 at 2100, For 5 doses, DVT Prophylaxis, Drug Monitoring Program: Pharmacist to adjust medication dosing based on indication and drug clearance factors. ertapenem injection 1 g (INVanz) Given 10/30/2020 10:43 AM ONCOLOGY REP SPECIALIST 1 g 1 g, intravenous, Every 24 hours, First dose on Mon10/30/20 at 1000, For 14 days, If needed, reconstitute vial per package insert instructions. See IVAG for administration guidelines. , Restriction Criteria (Pharmacy will review and approve if criteria met): Does not meet criteria (ID recommended), Authorizing provider? Tamra Pierre, Drug Monitoring Program: Pharmacist to adjust medication dosing based on indication and drug clearance factors., Indications: Intra-abdominal infection, community acquired iohexoL 300 mg iodine/mL solution 1-200 mL Given 10/23/2020 6:00 AM ONCOLOGY REP SPECIALIST 140 mL (OMNIPAQUE) 1-200 mL, intravenous, Once in imaging, contrast, Starting on Mon10/23/20 at 0559, For 1 dose, Imaging Protocol Orders, Dose per Radiant Medication Guidelines iohexoL 300 mg iodine/mL solution 1-200 mL Given 10/26/2020 6:30 PM ONCOLOGY REP SPECIALIST 140 mL (OMNIPAQUE) 1-200 mL, intravenous, Once in imaging, contrast, Starting on Mon10/26/20 at 1830, For 1 dose, Imaging Protocol Orders, Dose per Radiant Medication Guidelines iohexoL 350 mg iodine/mL solution 1-200 mL Given 10/23/2020 5:14 AM ONCOLOGY REP SPECIALIST 80 mL (OMNIPAQUE) 1-200 mL, intravenous, Once in imaging, contrast, Starting on Mon10/23/20 at 0513, For 1 dose, Imaging Protocol Orders, Dose per Radiant Medication Guidelines lactated Ringer's bolus 1,000 New Bag 10/23/2020 11:34 AM ONCOLOGY REP SPECIALIST 1,000 mL 1000 mL/hr mL 1,000 mL, intravenous, at 1,000 mL/hr, Administer over 1 Hours, Once, On Mon10/23/20 at 1100, For 1 dose lactated Ringer's bolus 1,000 mL New Bag 10/26/2020 5:59 PM ONCOLOGY REP SPECIALIST 1,000 mL 1000 mL/hr 1,000 mL, intravenous, at 1,000 mL/hr, Administer over 1 Hours, Once, On Mon10/26/20 at 1730, For 1 dose lactated ringers Restarted 10/24/2020 8:25 PM ONCOLOGY REP SPECIALIST 75 mL/hr 75 mL/hr 75 mL/hr, intravenous, Continuous, Starting on 10/24/20 at 1930, For 6 hours New Bag 10/24/2020 7:45 PM ONCOLOGY REP SPECIALIST 75 mL/hr 75 mL/hr lactated ringers Restarted 10/25/2020 12:26 AM ONCOLOGY REP SPECIALIST 75 mL/hr 75 mL/hr 75 mL/hr, intravenous, Continuous, Starting on Mon10/25/20 at 0030, For 6 hours lactated ringers Restarted 10/26/2020 8:00 PM ONCOLOGY REP SPECIALIST 20 mL/hr 20 mL/hr 20 mL/hr, intravenous, Continuous, Starting on Mon10/26/20 at 1400, PACU & Post-Op lactated ringers Rate/Dose Verify 10/27/2020 6:45 AM ONCOLOGY REP SPECIALIST 75 mL/hr 75 mL/hr 75 mL/hr, intravenous, Continuous, Starting on Mon10/26/20 at 2000, For 12 hours New Bag 10/26/2020 9:00 PM ONCOLOGY REP SPECIALIST 75 mL/hr 75 mL/hr NaCl 0.9 % bolus 1,000 mL New Bag 10/23/2020 4:55 AM ONCOLOGY REP SPECIALIST 1,000 mL 1000 mL/hr 1,000 mL, intravenous, at 1,000 mL/hr, Administer over 1 Hours, Once, On Mon10/23/20 at 0450, For 1 dose NaCl 0.9 % bolus 1,000 mL New Bag 10/23/2020 6:51 AM ONCOLOGY REP SPECIALIST 1,000 mL 1000 mL/hr 1,000 mL, intravenous, at 1,000 mL/hr, Administer over 1 Hours, Once, On Mon10/23/20 at 0644, For 1 dose naloxone injection 0.2 mg (NARCAN) 0.2 mg, intravenous, As needed, respirat ory depression, Starting on Mon10/25/20 at 0014, For RASS Score -4 or less, respiratory rate of l ess than 8 breaths/min. Notify provider/service and rapid response team (if av ailable at institution). nystatin suspension 500,000 Units Given 10/30/2020 4:08 PM ONCOLOGY REP SPECIALIST 5 00,000 Units (MYCOSTATIN) 500,000 Units, swish & spit, 4 times daily, First dose on Mon10/23/20 at 1700, Indications: Head, neck, and ENT infection Given 10/29/2020 5:01 PM ONCOLOGY REP SPECIALIST 500,000 Units Given 10/25/2020 9:31 AM ONCOLOGY REP SPECIALIST 500,000 Units ondansetron (PF) injection 8 mg (ZOFRAN) Given 10/24/2020 3:54 PM ONCOLOGY REP SPECIALIST 8 mg 8 mg, intravenous, Every 8 hours PRN, nausea, vomiting, Starting on 10/24/20 at 1548 ondansetron ODT disintegrating tablet 8 mg (ZOFRAN-ODT) 8 mg, oral, Every 8 hours PRN, nausea, v omiting, Starting on 10/24/20 at 1548, When splitting ODT at bedside, handle wi th gloves and a pill splitter to prevent moisture contact. oxyCODONE IR tablet 5 mg (ROXICODONE) Given 10/30/2020 4:08 PM ONCOLOGY REP SPECIALIST 5 mg 5 mg, oral, Every 4 hours PRN, moderate pain or score 4-6 of 10, Starting on 10/25/20 at 0013 Given 10/30/2020 8:09 AM ONCOLOGY REP SPECIALIST 5 mg Given 10/29/2020 6:45 PM ONCOLOGY REP SPECIALIST [address] tablet 40 mg (PROTONIX) Given 10/24/2020 5:36 AM ONCOLOGY REP SPECIALIST 40 mg 40 mg, oral, Daily before breakfast, First dose (after last modification) on 10/24/20 at 0700, Swallow whole. Do NOT crush, chew, or split tablet. pantoprazole injection 40 mg (PROTONIX) Given 10/23/2020 7:48 AM ONCOLOGY REP SPECIALIST 40 mg 40 mg, intravenous, Once, On Mon10/23/20 at 0744, For 1 dose, Administer IV push over 2 minutes. Add 10 mL NS to 40 mg vial for a final concentration of 4 mg/mL. pantoprazole injection 40 mg (PROTONIX) Given 10/30/2020 8:09 AM ONCOLOGY REP SPECIALIST 40 mg 40 mg, intravenous, Every 12 hours scheduled, First dose on 10/24/20 at 2100, Administer IV push over 2 minutes. Add 10 mL NS to 40 mg vial for a final concentration of 4 mg/mL. Given 10/29/2020 8:10 PM ONCOLOGY REP SPECIALIST 40 mg Given 10/29/2020 8:48 AM ONCOLOGY REP SPECIALIST 40 mg piperacillin-tazobactam in dextrose New Bag 10/23/2020 6:56 AM ONCOLOGY REP SPECIALIST 3.375 g 100 mL/hr (iso-osm) IVPB 3.375 g (ZOSYN) 3.375 g, intravenous, at 100 mL/hr, Administer over 0.5 Hours, Once, On Mon10/23/20 at 0650, For 1 dose, premix bag, Drug Monitoring Program: Pharmacist to adjust medication dosing based on indication and drug clearance factors., Indications: Blood stream infection piperacillin-tazobactam in dextrose New Bag 10/30/2020 6:09 AM ONCOLOGY REP SPECIALIST 3.375 g 100 mL/hr (iso-osm) IVPB 3.375 g (ZOSYN) 3.375 g, intravenous, at 100 mL/hr, Administer over 0.5 Hours, Every 6 hours, First dose (after last reorder) on Mon10/23/20 at 1200, premix bag, Drug Monitoring Program: Pharmacist to adjust medication dosing based on indication and drug clearance factors., Indications: Blood stream infection New Bag 10/29/2020 11:55 PM ONCOLOGY REP SPECIALIST 3.375 g 100 mL/hr New Bag 10/29/2020 5:16 PM ONCOLOGY REP SPECIALIST 3.375 g 100 mL/hr polyethylene glycol powder packet 1 packet Given 10/28 11:09 AM ONCOLOGY REP SPECIALIST 1 packet (MIRALAX) 1 packet, oral, Daily PRN, constipation, Starting on Mon10/23/20 at 1013, Ordered sequence of administration: polyethylene glycol, then bisacodyl until BM achieved. Avoid mixing with starch-based thickened liquids. promethazine injection 6.25 mg (PHENERGA N) Given 10/24/2020 7:45 PM ONCOLOGY REP SPECIALIST 6.25 mg 6.25 mg, intravenous, Every 6 hours PRN, nausea, vomiting, Starting on Mon10/24/20 at 1921 sennosides-docusate sodium 8.6-50 mg per Given 10/29/2020 8: 11 PM ONCOLOGY REP SPECIALIST 2 tablets tablet 2 tablet (SENOKOT-S) 2 tablet, oral, 2 times daily PRN, constipation, Starting on Mon10/23/20 at 1014, Do not give if patient has diarrhea. Given 10/28/2020 11:10 AM ONCOLOGY REP SPECIALIST 2 tablets simethicone chewable tablet 80 mg (MYLIC ON) Given 10/29/2020 8:11 PM ONCOLOGY REP SPECIALIST 80 mg 80 mg, oral, 4 times daily PRN, flatulence, Starting on Mon10/28/20 at 1009 Given 10/28/2020 11:09 AM ONCOLOGY REP SPECIALIST 80 mg sodium chloride (PF) 0.9 % injection 1-1 00 mL Given 10/23/2020 5:14 AM ONCOLOGY REP SPECIALIST 30 mL 1-100 mL, intravenous, Once, On Mon10/23/20 at 0514, For 1 dose, Imaging Protocol Orders sodium chloride (PF) 0.9 % injection 1-1 00 mL Given 10/23/2020 6:00 AM ONCOLOGY REP SPECIALIST 50 mL 1-100 mL, intravenous, Once, On Mon10/23/20 at 0600, For 1 dose, Imaging Protocol Orders sodium chloride (PF) 0.9 % injection 1-1 00 mL Given 10/26/2020 6:30 PM ONCOLOGY REP SPECIALIST 50 mL 1-100 mL, intravenous, Once, On Mon10/26/20 at 1845, For 1 dose, Imaging Protocol Orders sodium chloride 0.9 % injection 10 mL Given 10/29/2020 8:11 PM ONCOLOGY REP SPECIALIST 10 mL 10 mL, intravenous, As needed, line care, Peripheral Intravenous Catheter and Rapid Infusion Catheter, Starting on Sandra 10/29/20 at 0149, Prior to blood sampling, post blood transfusion or post blood sampling. sodium chloride 0.9 % injection 3 mL Given 10/30/2020 8:10 AM ONCOLOGY REP SPECIALIST 3 mL 3 mL, intravenous, Every 12 hours scheduled, First dose on 10/24/20 at 2100, Peripheral Intravenous Catheter and Rapid Infusion Catheter: When no infusion to maintain patency. Given 10/29/2020 8:12 PM ONCOLOGY REP SPECIALIST 3 mL Given 10/29/2020 8:49 AM ONCOLOGY REP SPECIALIST 3 mL sodium chloride 0.9 % injection 3 mL Given 10/29/2020 6:08 AM ONCOLOGY REP SPECIALIST 3 mL 3 mL, intravenous, As needed, line care, Peripheral Intravenous Catheter and Rapid Infusion Catheter, Starting on Sandra 10/29/20 at 0149, Prior to and following infusion and between multiple consecutive infusions. traZODone tablet 50 mg (DESYREL) Given 10/24/2020 8:40 PM ONCOLOGY REP SPECIALIST 50 mg 50 mg, oral, Daily at bedtime, First dose on 10/24/20 at 2100 traZODone tablet 50 mg (DESYREL) Given 10/24/2020 9:40 PM ONCOLOGY REP SPECIALIST 50 mg 50 mg, oral, Bedtime PRN, sleep, extra dose, Starting on 10/24/20 at 2030 documented in this encounter Active and Recently Administered Medications Times are shown in ONCOLOGY REP SPECIALIST. Scheduled Medication Order 10/28/2020 10/29/2020 10/30/2020 enoxaparin injection 40 mg (LOVENOX) 1038 (Given - Pro vider: Nikki Bright R.N.)1103 (Held by provider - Provider: John Christianson M.D. - Comment: Procedure 10/29) 0900 (Dose Auto Held - Provider: John Christianson M.D.) 0900 (Not Given - Provider: Lakshmi Greco R.N. - Reason: See Provider Order)2116 (Unheld by provider - Provider: Discharge Provider, Automatic) 40 mg, subcutaneous, Every 24 hours sche duled, First dose (after last modification) on Mon10/28/20 at 0915 ertapenem injection 1 g (INVanz) 1043 (Given - Provider: Lakshmi Greco R.N.) 1 g, intravenous, Every 24 hours, First dose on Mon10/30/20 at 1000, For 14 days, If needed, reconstitute vial per package insert instructions. See IVAG for administration guidelines. , Restriction Gurdeep fair (Pharmacy will review and approve i f criteria met): Does not meet criteria (ID recommended), Authorizing provider? Tamra Pierre, Drug Monitoring Program: Pharmacist to adjust medication dosin g based on indication and drug clearance factors., Indications: Intra-abdominal infection, community acquired nystatin suspension 500,000 Units (MYCOSTATIN) 0900 (N ot Given - Provider: Nikki Bright R.N. - Reason: Patient/family refused)1200 (Not Given - Provider: Maura Winters R.N. - Reason: Patient/family refused) 0849 (Not Given - Provider: Maura Winters R.N. - Reason: Patient/family refused)1137 (Not Given - Provider: Lakshmi Greco R.N. - Reason: Patient/family refused)1701 (Given - Provider: Kandy Bellamy R.N.) 0809 (Not Given - Provider: Lakshmi Greco R.N. - Reason: Patient/family refused)1111 (Not Given - Provider: Lakshmi Greco R.N. - Reason: Patient/family refused)1608 (Given - Provider: Elizabeth Tee R.N.) 500,000 Units, swish & spit, 4 times joann ly, First dose on Mon10/23/20 at 1700, Indications: Head, neck, and ENT infection 1800 (Not Given - Provider: Nikki Bright R.N. - Reason: Patient/family refused)2128 (Not Given - Provider: Lorna Singh R.N. - Reason: Patient/family refused) 2011 (Not Given - Provider: Lianne Briceno R.N. - Reason: Patient/family refused) pantoprazole injection 40 mg (PROTONIX) 0953 (Given - Provider: Nikki Bright R.N.)2122 (Given - Provider: Lorna Singh R.N.) 0848 (Given - Provider: Maura Winters R.N.)2009 (Given - Provider: Lianne Briceno R.N.) 0809 (Given - Provider: Lakshmi Greco R.N.) 40 mg, intravenous, Every 12 hours sched uled, First dose on Mon10/24/20 at 2100, Administer IV push over 2 minutes. Add 10 mL NS to 40 mg vial for a final concentration of 4 mg/mL. piperacillin-tazobactam in dextrose (iso-osm) IVPB 3.3 75 g (ZOSYN) (CANCELED) 0602 (New Bag - Provider: Maddy Morales RRiazNRiaz)1148 (New Bag - Provider: Maura Winters R.N.)1832 (New Bag - Provider: Nikki Bright R.N.) 0025 (New Bag - Provider: Kandy Francisco R.N.)0608 (New Bag - Provider: Kandy Francisco R.N.)1137 (New Bag - Provider: Lakshmi Greco R.N.)1716 (New Bag - Provider: Kandy Bellamy R.N.)2355 (New Bag - Provider: Lianne Briceno R.N.) 0609 (New Bag - Provider: Lianne Briceno R.N.) 3.375 g, intravenous, at 100 mL/hr, Admi nister over 0.5 Hours, Every 6 hours, First dose (after last reorder) on 10/23/20 at 1200, premix bag, Drug Monitoring Program: Pharmacist to adjust medication dosing based on indication and drug emiliano arance factors., Indications: Blood stream infection sodium chloride 0.9 % injection 3 mL 0900 (Given - Pro vider: Nikki Bright RRiazNRiaz)2129 (Given - Provider: Lorna Singh RRiazNRiaz) 0849 (Given - Provider: Maura Winters RRiazNRiaz)2011 (Given - Provider: Lianne Briceno R.N.) 0810 (Given - Provider: Cipriano BailonNRiaz) 3 mL, intravenous, Every 12 hours schedu led, First dose on 10/24/20 at 2100, Peripheral Intravenous Catheter and Rapid Infusion Catheter: When no infusion to maintain patency. Continuous Medication Order 10/28/2020 10/29/2020 10/30/2020 D5W and NaCl 0.45 % infusion (CANCELED) 1651 (New Bag - Provider: Kandy Bellamy R.N.)1803 (Stopped - Provider: Kandy Bellamy R.N.) 75 mL/hr, intravenous, Continuous, Start ing on Sandra 10/29/20 at 1700, For 16 hours PRN Medication Order 10/28/2020 10/29/2020 10/30/2020 acetaminophen tablet 1,000 mg (TYLENOL) 2010 (Given - Provider: Lianne Briceno R.N.) 1,000 mg, oral, Every 6 hours PRN, mild pain or score 1-3 of 10, fever, Starting on Mon10/23/20 at 1012 ALPRAZolam tablet 0.5 mg (XANAX) 0025 (G iven - Provider: Kandy Francisco R.N.) 0.5 mg, oral, Bedtime PRN, anxiety, Starting on Mon10/25/20 at 0 015 calcium carbonate chewable tablet 400 mg of calcium (T UMS) 1509 (Given - Provider: Vivienne Gonzales RRiazN.) 1803 (Given - Provider: Kandy gutierrez R.N.) 1205 (Given - Provider: Lakshmi Greco RJohn.) 400 mg of calcium, oral, Every 2 hour WI N, heartburn, indigestion, Starting on 10/23/20 at 1012, Doses listed are in mg of elemental calcium. Take with food. 500 mg calcium carbonate contains 200 mg of elemental calcium. naloxone injection 0.2 mg (NARCAN) 0.2 mg, intravenous, As needed, respirat ory depression, Starting on 10/25/20 at 0014, For RASS Score -4 or less, respiratory rate of less than 8 breaths/min. Notify provider/service and rapid response team (if available at institution). ondansetron (PF) injection 8 mg (ZOFRAN)(Linked Group 1) 8 mg, intravenous, Every 8 hours PRN, na usea, vomiting, Starting on 10/24/20 at 1548 ondansetron ODT disintegrating tablet 8 mg (ZOFRAN-ODT)(Linked G roup 1) 8 mg, oral, Every 8 hours PRN, nausea, v omiting, Starting on 10/24/20 at 1548, When splitting ODT at bedside, handle with gloves and a pill splitter to prevent moisture contact. oxyCODONE IR tablet 5 mg (ROXICODONE) 0728 (Given - Pr ovider: Sheree Presley R.N.)1352 (Given - Provider: Maura Winters R.N.) 0705 (Given - Provider: Kandy Francisco R.N.)1845 (Given - Provider: Kandy Bellamy RRiazN.) 0809 (Given - Provider: Lakshmi Greco RRiazN.)1608 (Given - Provider: Elizabeth Tee RRiazNRiaz) 5 mg, oral, Every 4 hours PRN, moderate pain or score 4-6 of 10, Starting on 10/25/20 at 0013 polyethylene glycol powder packet 1 packet (MIRALAX) 1 109 (Given - Provider: Nikki Bright R.N.) 1 packet, oral, Daily PRN, constipation, Starting on Mon10/23/20 at 1013, Ordered sequence of administration: polyethylene glycol, then bisacodyl until BM achieved. Avoid mixing with starch-based thickened liquids. promethazine injection 6.25 mg (PHENERGAN) 6.25 mg, intravenous, Every 6 hours PRN, nausea, vomiting, Starting on 10/24/20 at 1921 sennosides-docusate sodium 8.6-50 mg per tablet 2 tabl et (SENOKOT-S) 1110 (Given - Provider: Nikki Bright R.N.) 2010 (Given - Provider: Lianne Briceno R.N.) 2 tablet, oral, 2 times daily PRN, const ipation, Starting on Mon10/23/20 at 1014, Do not give if patient has diarrhea. simethicone chewable tablet 80 mg (MYLICON) 1109 (Give n - Provider: Nikki Bright R.N.) 2010 (Given - Provider: Cipriano RaoNRiaz) 80 mg, oral, 4 times daily PRN, flatulence, Starting on 10/28 at 1009 sodium chloride 0.9 % injection 10 mL 20 11 (Given - Provider: Lianne Briceno RMariajose) 10 mL, intravenous, As needed, line care , Peripheral Intravenous Catheter and Rapid Infusion Catheter, Starting on Sandra 10/29/20 at 0149, Prior to blood sampling, post blood transfusion or post blood sampling. sodium chloride 0.9 % injection 3 mL 060 8 (Given - Provider: Kandy Francisco RMariajose) 3 mL, intravenous, As needed, line care, Peripheral Intravenous Catheter and Rapid Infusion Catheter, Starting on Sandra 10/29/20 at 0149, Prior to and following infusion and between multiple consecutive infusions. Linked Groups Order Group 1: ondansetron ODT disintegrating tablet 8 mg (ZOFRAN-ODT)Jump to med 8 mg, oral, Every 8 hours PRN, nausea, v omiting, Starting on 10/24/20 at 1548
When splitting ODT at bedside, handle with gloves and a pill splitter to prevent moisture contact.
Or ondansetron (PF) injection 8 mg (ZOFRAN)Jump to med 8 mg, intravenous, Every 8 hours PRN, na usea, vomiting, Starting on 10/24/20 at 1548 documented in this encounter Additional Health Concerns Infection Onset Date Last Indicated Resolved Time COVID19 Pending 10/23/2020 10/23/2020 10/23/2020 2:59 PM ONCOLOGY REP SPECIALIST documented as of this encounter Care Teams Crude Oil Driver Relationship Specialty Start Date End Date Elsewhere, Pcp PCP - General Family Medicine 08/12/20 documented as of this encounter
--- OUTSIDE RECORDS SUMMARY | 2022-06-18 16:20 | XMS_ITS | Encounter Summary ---
:1965 Author Organization [facility] Address [address] [place] [address] Care Team Providers Name Role Phone Elsewhere, Pcp Primary Care Provider Unavailable Encounter Details Date Type Department Care Team Description 10/26/2020 Ancillary Procedure Department of Gastroenterology Social History [...] How often do you attend christianity or methodist services? 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 [address] [place] [address] [phone] (Wo jayne) 06/22/2022 Infusion Oncology Maria Del Rosario Gomez APRN, Remy.N .P., M.S. [address] [place] [address] [phone] (Wo rk) 06/29/2022 Lab Laboratory Medicine Maria Del Rosario Gomez AP RN, C.N.P., M.S. [address] [place] [address] [phone] (Wo rk) 06/29/2022 Infusion Oncology Maria Del Rosario Gomez APRN, C.N .Pamela., M.S. [address] [place] [address] [phone] (Wo rk) documented as of this encounter Procedures Procedure Name Priority Date/Time Associated Diagnosis Comme nts GI AND GENERAL Routine 10/26/2020 1:10 PM Results for this SURGERY IMAGE EXAM TIMBER FRAMER HELPER procedure are in the results section. documented in this encounter Results UPPER EUS-GI And General Surgery Image Exam (10/26/2020 1:10 PM TIMBER FRAMER HELPER) Specimen (Source) Anatomical Collection Method Collection Time Re ceived Time Location / / Volume Laterality 10/26/2020 1:10 PM TIMBER FRAMER HELPER Narrative [facility] - 10/26/2020 3:51 PM TIMBER FRAMER HELPER This order has been created and auto-finalized [...] on filedocumented in this encounter Care Teams All Around Gear Machine Operator Relationship Specialty Start Date End Date Elsewhere, Pcp PCP - General Family Medicine 08/12/20 documented as of this encounter
--- OUTSIDE RECORDS SUMMARY | 2022-06-18 16:20 | XMS_ITS | Encounter Summary ---
:1965 Author Organization [facility] Address [address] [place] [id number] Care Team Providers Name Role Phone Elsewhere, Pcp Primary Care Provider Unavailable Reason for Visit Reason Comments Care Coordination outside blood culture result s Encounter Details Date Type Department Care Team Description 10/23/2020 Clinical Communication Section of Jean Claude Kinney Infectious Diseases Jayna Campuzano (outside blood in [place], culture result s) [place] (Work) [address] [place] [address] Social History Tobacco Use Types Packs/Day Years [...] How often do you attend orthodoxy or episcopalian services? Never 01/15/2021 Do you [...] Telephone Encounter - Sandy Kinney R.N. - 10/23/2020 11:22 AM CST Final blood culture results (negative x 2) from 10/18/2020 were received from [facility] and have been uploaded into the patient's chart (viewable in Document Viewer). I will send this to [facility] ID service for review. ERY PLATE REMOVER documented in this encounter Plan of Treatment Upcoming Encounters Date Type Specialty Care Team Description 06/22/2022 Lab Laboratory Medicine Maria Del Rosario Gomez AP RN, C.N.P., M.S. [address] [place] [address] [phone] (Wo rk) 06/22/2022 Infusion Oncology Maria Del Rosario Gomez APRN, C.N .P., M.S. [address] [place] [address] [phone] (Wo rk) 06/29/2022 Lab Laboratory Medicine Maria Del Rosario Gomez AP RN, C.N.P., M.S. [address] [place] [address] [phone] (Wo rk) 06/29/2022 Infusion Oncology Maria Del Rosario Gomez APRN, C.N .P., M.S. [address] [place] [address] [phone] (Wo rk) documented as of this encounter Visit Diagnoses Not on filedocumented in this encounter Additional Health Concerns Infection Onset Date Last Indicated Resolved Time COVID19 Pending 10/23/2020 10/23/2020 10/23/2020 2:59 PM BATTERY PLATE REMOVER documented as of this encounter Care Teams Director Of Knowledge Management Relationship Specialty Start Date End Date Elsewhere, Pcp PCP - General Family Medicine 08/12/20 documented as of this encounter
--- OUTSIDE RECORDS SUMMARY | 2022-06-18 16:20 | XMS_ITS | Encounter Summary ---
:1965 Author Organization [facility] Address [address] [place] [address] Care Team Providers Name Role Phone Elsewhere, [...] Expiration Date Visits Requ ested Visits Authorized [id number] 1 1 Encounter Details Date Type Department Care Team Description 10/26/2020 Anesthesia Event Division of Gastroenterology No Marcelina martinez APRN, MAINSPRING TORQUE TESTER [address] [place] [phone] in [facility] Vicki Baker M.D. [address] [place] [phone] [address] [place] [phone] Anesthesia Record Procedure Summary Procedure Name Responsible Anesthesia Start Anesthesia Stop Time Anesthesiologist Time EGD Marcelina Yoo APRN, MAINSPRING TORQUE TESTER 10/26/20 1334 10/26 1609 (ESOPHAGEALGASTRODU ODENOSCOPY) Events Date Time Event Comment 10/26/2020 1334 An Start Machine/Equipmen t Checked Infection Precautions Foll owed Procedure/Site Verified NPO Sta tus Verified Supine Standard ASA Mon itors Applied 1338 An Induction 1343 An Intubation 1344 Turnover to Proceduralist 1352 Proc Start 1500 Quick Note Multiple endosco pe insertions throughout procedure. 1543 Proc Fin 1557 Turnover to ANE Staff 1557 Airway Removal Criteria Met 1557 Extubation/Airway Removed 1602 an stop data 1609 An End I completed my h andoff to the receiving staff during [facility] we 1. Identified the patient 2. Ident [...] mcg/mL 100 mcg lidocaine 2% (mg) injection 85 mg propofol 10 mg/mL 260 mg propofol 10 mg/mL infusion 1,283.1 mg succinylcholine 20 mg/mL injection 100 mg phenylephrine 100 mcg/mL injection 600 mcg ePHEDrine PF 5 mg/mL syringe injection 25 mg ondansetron 4 mg/2 mL injection 4 mg dexamethasone 4 mg/mL injection 8 mg piperacillin-tazobactam in dextrose (iso-osm) IVPB 3.3 75 g (ZOSYN) 3.375 g rocuronium 10 mg/mL injection 40 mg sugammadex 100 mg/mL injection 300 mg Lactated Ringers Free Drip 1,500 mL Agents No agents on file. Blood No blood administrations on file. Lines, Drains, and Airways Type Details Placement Removal Peripheral IV Placement Date: 10/26/20; 10/26/20 0734 by 10/29 1535 by Placement Time: 0734; Charline Merchant, Kandy Chilel, RRiazNRiaz Catheter Size: 22 G; Orientation: Left; Location: Hand; Site Prep: Chlorhexidine (Preferred); Technique: Anatomical landmarks (TCL); Inserted by: HARSHIL/KHOA; Insertion Attempts: 1; Removal Date: 10/29/20; Removal Time: 1535; Removal Reason: Other (Comment) (per pt request; painful) ETT Placement Date: 10/26/20; 10/26/20 1343 by Fredo , 10/26/20 1557 by Placement Time: 1343 Marcelina Hernandez APRN, Marcelina Del Real APRN, (created via procedure MAINSPRING TORQUE TESTER documentation); Mask Ventilation: Easy mask; Type: Standard ETT; Single Lumen Tube Size: 7 mm; Cuffed: Yes; Location: Oral; Removal Date: 10/26/20; Removal Time: 1557 documented in this encounter Social History Tobacco [...] How often do you attend scientology or adventism services? 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 documented as of this encounter OR Notes Anesthesia Postprocedure Evaluation - Marcelina Yoo APRN, CRNA - 10/26/2020 4:09 PM CST Patient: Adam Campbell Procedure Summary Date: 10/26/20 Room / Location: Division of Gastroenterology in [place], [place] Anesthesia Start: 1334 Anesthesia Stop: 1609 Procedures: EGD (ESOPHAGEALGASTRODUODENOSCOPY) ERCP ENDOSCOPIC ULTRASOUND (EUS) Diagnosis: Scheduled Providers: Marcelina Yoo APRN, CRNA Responsible Provider: Marcelina Yoo APRN, CRNA Anesthesia Type: general ASA Status: Not recorded Anesthesia Type: general Last vitals Vitals Value Taken Time BP 91/63 10/26/20 1604 Temp Pulse 91 10/26/20 1609 Resp 21 10/26/20 1609 SpO2 92 % 10/26/20 1609 Vitals shown include unvalidated device data. Please reference Vitals flowsheet for most recent vital signs. Anesthesia Post Evaluation Patient Disposition: dismissal Cardiovascular status: hemodynamics (HR & BP) acceptable Respiratory status: patent airway with spontaneous effort Temperature: normothermic Oxygen requirements: room air Level of consciousness: awake Pain score: pain adequately controlled and/or at baseline Post Op nausea/vomiting: none Hydration status: euvolemic AL AIDE Anesthesia Procedure Notes - Marcelina Yoo APRN, CRNA - 10/26/2020 1:48 PM DENTAL AIDE Associated Order(s): Airway Airway Date/Time: 10/26/2020 1:43 PM Performed by: Marcelina Yoo APRN, CRNA Authorized by: Marcelina Yoo APRN, CRNA Patient location during procedure: OR / Procedure Area PROCEDURE DETAILS: Mask difficulty assessment: easy mask Final airway type: video laryngoscope (gentle, atraumatic intubation with glidescope ) Laryngeal Manipulation: no Final best view of glottic structures - Cormack/Lehane Score: grade 1 ETT location: oral VL device: glide scope [place] scope blade size: 3 Adult tube size: 7 Adult ETT distance [...] Procedure outcome: successful Airway event: no complications AL AIDE Anesthesia Preprocedure Evaluation - Marcelina Yoo APRN, CRNA - 10/26/2020 12:59 PM CST Preprocedure Anesthesia & H&P Assessment Procedure Summary Date/Time: 10/26/20 1315 Procedures: EGD (ESOPHAGEALGASTRODUODENOSCOPY) ERCP ENDOSCOPIC ULTRASOUND (EUS) Location: Division of Gastroenterology in [place], [place] Pertinent components of the patient's history [...] >3 cm Cardiovascular Rhythm: Regular Rate: Normal Cardiovascular Assessment: cardiovascular normal Functional Capacity: >4 METS Pulmonary Pulmonary Assessment: Clear General / Constitutional Constitutional Assessment: Normal General State of Health:: calm Neurological Neurologic Assessment:??alert and alert and oriented x 3 Dental Dental Assessment: dentition intact Abdomen Normal Musculoskeletal Normal Skin Normal ASSESSMENT / PLAN ANESTHESIA PLAN ASA: 2 Anesthesia Plan: general Patient seen and allergies reviewed, anesthesia plan and risks discussed directly with patient /legal guardian or through an wide area network engineer. Risks/Benefits/Alternatives of Blood transfusion discussed with patient / legal guardian, including an opportunity to ask questions and/or decline some or all transfusion therapies. The patient / legalguardian consented to the use of all blood products, as deemed medically necessary Approval to Proceed: approved for anesthesia AL AIDE documented in this encounter Plan of Treatment Upcoming Encounters Date Type Specialty Care Team Description 06/22/2022 Lab Laboratory Medicine Maria Del Rosario Gomez AP RN, C.N.P., M.S. [address] [place] [phone] (Mj godoy) 06/22/2022 Infusion Oncology Maria Del Rosario Gomez APRN, C.N .P., M.S. [address] [place] [address] [phone] (Mj godoy) 06/29/2022 Lab Laboratory Medicine Maria Del Rosario Gomez AP RN, C.N.P., M.S. [address] [place] [phone] (Mj godoy) 06/29/2022 Infusion Oncology Maria Del Rosario Gomez APRN, Remy.N .P., M.S. [address] [place] [phone] (Wo rk) documented as of this encounter Procedures Procedure Name Priority Date/Time Associated Comments Diagnosis LDA ANE ENDOTRACHEAL Routine 10/26/2020 1:48 PM R esults for this AIRWAY DENTAL AIDE procedure are i n the results section. documented in this encounter Results LDA ANE ENDOTRACHEAL AIRWAY (10/26/2020 1:48 PM DENTAL AIDE) Narrative Marcelina Yoo APRN, CRNA - 10/26/2020 1:48 PM DENTAL AIDE Marcelina Yoo APRN, CRNA ? 10/26/2020 ??1:55 PM Airway Date/Time: 10/26/2020 1:43 PM Performed by: Marcelina Yoo APRN, CRNA Authorized by: Marcelina Yoo APRN, CRN A Patient location during procedure: OR / Procedure Area PROCEDURE DETAILS: Mask difficulty assessment: easy mask Final airway type: video laryngoscope (g entle, atraumatic intubation with glidescope ) Laryngeal Manipulation: no ?? Final best view of glottic structures - Cormack/Lehane Score: grade 1 ETT location: oral VL device: glide scope [place] scope blade size: 3 Adult tube size: 7 Adult ETT distance [...] outcome: successful ?? Airway event: no complications Marcelina Yoo APRN, CRNA ANESTHESIA ORDERABLES documented in this encounter Visit Diagnoses Not on filedocumented in this encounter Administered Medications Inactive Administered Medications - up to 3 most recent administrations Medication Order MAR Action Action Date Dose Rate Site dexAMETHasone injection (DECADRON) Given 10/26/2020 1:48 PM DENTAL AIDE 8 mg As needed, Starting on Mon10/26/20 at 1348, Anesthesia Intra-op ePHEDrine (PF) injection Given 10/26/2020 2:56 PM DENTAL AIDE 5 mg intravenous, As needed, Starting on Mon10/26/20 at 1440, Anesthesia Intra-op Given 10/26/2020 2:52 PM DENTAL AIDE 5 mg Given 10/26/2020 2:46 PM DENTAL AIDE 5 mg fentaNYL injection (SUBLIMAZE) Given 10/26/2020 2:11 PM DENTAL AIDE 50 mcg intravenous, As needed, Starting on Mon10/26/20 at 1342, Anesthesia Intra-op Given 10/26/2020 1:57 PM DENTAL AIDE 25 mcg Given 10/26/2020 1:42 PM DENTAL AIDE 25 mcg lactated ringers New Bag 10/26/2020 2:55 PM DENTAL AIDE intravenous, Continuous Infusion: Per Instructions PRN, Starting on Mon10/26/20 at 1334, Anesthesia Intra-op New Bag 10/26/2020 1:34 PM DENTAL AIDE lidocaine (PF) (cardiac) injection Given 10/26/2020 1:41 PM DENTAL AIDE 60 mg intravenous, As needed, Starting on Mon10/26/20 at 1341, Anesthesia Intra-op Given 10/26/2020 1:40 PM DENTAL AIDE 25 mg ondansetron (PF) injection (ZOFRAN) Given 10/26/2020 1:48 PM DENTAL AIDE 4 mg intravenous, As needed, Starting on Mon10/26/20 at 1348, Anesthesia Intra-op phenylephrine injection Given 10/26/2020 3:10 PM DENTAL AIDE 100 mcg intravenous, As needed, Starting on Mon10/26/20 at 1348, Anesthesia Intra-op Given 10/26/2020 2:52 PM DENTAL AIDE 100 mcg Given 10/26/2020 2:46 PM DENTAL AIDE 100 mcg piperacillin-tazobactam in dextrose New Bag 10/30/2020 6:09 AM DENTAL AIDE 3.375 g 100 mL/hr (iso-osm) IVPB 3.375 g (ZOSYN) 3.375 g, intravenous, at 100 mL/hr, Administer over 0.5 Hours, Every 6 hours, First dose (after last reorder) on Mon10/23/20 at 1200, premix bag, Drug Monitoring Program: Pharmacist to adjust medication dosing based on indication and drug clearance factors., Indications: Blood stream infection New Bag 10/29/2020 11:55 PM DENTAL AIDE 3.375 g 100 mL/hr New Bag 10/29/2020 5:16 PM DENTAL AIDE 3.375 g 100 mL/hr propofol 10 mg/mL infusion Rate/Dose 10/26/2020 2:11 150 mcg/kg/min 65.5 mL/hr (DIPRIVAN) Change PM DENTAL AIDE intravenous, Continuous Infusion: Per Instructions PRN, Starting on Mon10/26/20 at 1342, Anesthesia Intra-op Rate/Dose Change 10/26/2020 1:50 PM DENTAL AIDE 125 mcg/kg/min 54.6 mL/hr New Bag 10/26/2020 1:42 PM DENTAL AIDE 150 mcg/kg/min 65.5 mL/hr propofoL injection (DIPRIVAN) Given 10/26/2020 2:56 PM DENTAL AIDE 50 mg intravenous, As needed, Starting on Mon10/26/20 at 1342, Anesthesia Intra-op Given 10/26/2020 2:43 PM DENTAL AIDE 20 mg Given 10/26/2020 2:33 PM DENTAL AIDE 20 mg rocuronium injection (ZEMURON) Given 10/26/2020 3:20 PM DENTAL AIDE 10 mg As needed, Starting on Mon10/26/20 at 1457, Anesthesia Intra-op Given 10/26/2020 2:57 PM DENTAL AIDE 30 mg succinylcholine (PF) injection (ANECTINE ) Given 10/26/2020 1:42 PM DENTAL AIDE 100 mg intravenous, As needed, Starting on Mon10/26/20 at 1342, Anesthesia Intra-op sugammadex injection (BRIDION) Given 10/26/2020 3:42 PM DENTAL AIDE 300 mg As needed, Starting on Mon10/26/20 at 1542, Anesthesia Intra-op documented in this encounter Care Teams Reinforcing Steel Machine Operator Relationship Specialty Start Date End Date Elsewhere, Pcp PCP - General Family Medicine 08/12/20 documented as of this encounter
--- OUTSIDE RECORDS SUMMARY | 2022-06-18 16:20 | XMS_ITS | Encounter Summary ---
:1965 Author Organization [facility] Address [address] [place] [address] Care Team Providers Name Role Phone Elsewhere, [...] Expiration Date Visits Requ ested Visits Authorized [id number] 1 1 Encounter Details Date Type Department Care Team Description 10/29/2020 Anesthesia Event Division of Jermaine Coreas [facility] in [place], JESUS A [place], [place] [address] [place] [address] [place] [phone] Anesthesia Record Procedure Summary Procedure Name Responsible Anesthesia Start Anesthesia Stop Anesthesiologist Time Time ENDOSCOPIC Jermaine Coreas APRN, 10/29/20 1334 10/29 1530 ULTRASOUND (EUS) LINE RUNNER Events Date Time Event Comment 10/29/2020 1334 An Start Machine/Equipmen t Checked Infection Precautions Foll owed Procedure/Site Verified NPO Sta tus Verified Supine Standard ASA Mon itors Applied 1344 An Induction 1349 An Intubation 1401 Turnover to Proceduralist 1402 Proc Start 1511 Turnover to ANE Staff 1515 Proc Fin 1518 Airway Removal Criteria Met 1519 Extubation/Airway Removed 1527 an stop data 1530 An End I completed my h andoff to the receiving staff during [facility] we 1. Identified the [...] mcg/mL 100 mcg lidocaine 2% (mg) injection 40 mg propofol 10 mg/mL 170 mg propofol 10 mg/mL infusion 523.78 mg succinylcholine 20 mg/mL injection 120 mg phenylephrine 100 mcg/mL injection 1,000 mcg ePHEDrine PF 5 mg/mL syringe injection 5 mg Lactated Ringers Free Drip 1,100 mL Agents No agents on file. Blood No blood administrations on file. Lines, Drains, and Airways Type Details Placement Removal Peripheral IV Placement Date: 10/26/20; 10/26/20 0734 by 10/29 1535 by Placement Time: 0734; Charline Merchant Marissa A, R.N. Catheter Size: 22 G; Orientation: Left; Location: Hand; Site Prep: Chlorhexidine (Preferred); Technique: Anatomical landmarks (TCL); Inserted by: HARSHIL/KHOA; Insertion Attempts: 1; Removal Date: 10/29/20; Removal Time: 1535; Removal Reason: Other (Comment) (per pt request; painful) ETT Placement Date: 10/29/20; 10/29/20 1349 by [id number] by Placement Time: 1349 Jermaine Pompa APRN, Jermaine Green, (created via procedure JESUS LEDEZMA APRN documentation); Mask Ventilation: Not attempted; Type: Standard ETT; Single Lumen Tube Size: 7 mm; Cuffed: Yes; Location: Oral; Removal Date: 10/29/20; Removal Time: 1519 Peripheral IV Placement Date: 10/29/20; 10/29/20 1357 by [id number] by Placement Time: 1357; Jermaine Pompa APRN, Ne ff, Samantha S, Catheter Size: 20 G; LINE RUNNER R.N. Orientation: Right; Location: Forearm; Removal Date: 10/30/20; Removal Time: 1615; Removal Reason: Patient discharged documented in this [...] How often do you attend holiness or amish services? 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 documented as of this encounter OR Notes Anesthesia Postprocedure Evaluation - Jermaine Coreas APRN, CRNA - 10/29/2020 3:30 PM CST Patient: Adam Campbell Procedure Summary Date: 10/29/20 Room / Location: Division of Gastroenterology in [place], [place] Anesthesia Start: 1334 Anesthesia Stop: 1530 Procedures: ENDOSCOPIC ULTRASOUND (EUS) ERCP Diagnosis: Scheduled Providers: Jermaine Coreas APRN, CRNA Responsible Provider: Jermaine Coreas APRN, CRNA Anesthesia Type: general ASA Status: 2 Anesthesia Type: general Last vitals Vitals Value [...] Post Op nausea/vomiting: none Hydration status: euvolemic DISTRIBUTION CLERK Anesthesia Procedure Notes - Jermaine Coreas APRN, CRNA - 10/29/2020 2:04 PM CSTAssociated Order(s): Airway Airway Date/Time: 10/29/2020 1:49 PM Performed by: Jermaine Coreas APRN, CRNA Authorized by: Jermaine Coreas APRN, CRNA Care team members present 1. Jermaine Coreas APRN, CRNA 3. Celso Adams M.D. Patient location during procedure: OR / Procedure Area PROCEDURE DETAILS: Mask difficulty assessment: not attempted Final airway type: video laryngoscope Laryngeal Manipulation: no Final best view of glottic structures - Cormack/Lehane Score: grade 2A ETT location: oral VL device: glide scope Bowie scope blade size: 4 Adult tube size: 7 Adult ETT distance at teeth/gum: 23 Oral tube type: standard ETT Cuffed: yes Airway confirmation: bilateral breath sounds, positive ETCO2 and bilateral chest rise Other previous techniques attempted: none PRE PROCEDURE DETAILS: Pre evaluation for airway management: procedure Urgency: elective Preop assessment of probable difficulty: questionable / suspicious difficult airway Preoxygenation: bag valve mask SEDATION / ANESTHESIA Anesthesia method: anesthesia POST PROCEDURE DETAILS: Procedure outcome: successful Airway event: no complications DISTRIBUTION CLERK Anesthesia Preprocedure Evaluation - Celso Adams M.D. - 10/29/2020 1:31 PM CST Preprocedure Anesthesia & H&P Assessment Procedure Summary Date/Time: 10/29/20 1330 Scheduled providers: Jermaine Coreas APRN, CRNA Procedures: ENDOSCOPIC ULTRASOUND (EUS) ERCP Location: Division of Gastroenterology in [place], [place] Pertinent components of the patient's history [...] Thin ASSESSMENT / PLAN ANESTHESIA PLAN ASA: 2 Anesthesia Plan: general Patient seen and allergies reviewed, anesthesia plan and risks discussed directly with patient /legal guardian or through an tumbler machine operator. The use of blood products not discussed DISTRIBUTION CLERK documented in this encounter Plan of Treatment Upcoming Encounters Date Type Specialty Care Team Description 06/22/2022 Lab Laboratory Medicine Maria Del Rosario Gomez AP RN, C.N.P., M.S. [address] [place] [address] [phone] (Mj godoy) 06/22/2022 Infusion Oncology Maria Del Rosario Gomez APRN, C.N .P., M.S. [address] [place] [address] [phone] (Mj godoy) 06/29/2022 Lab Laboratory Medicine Maria Del Rosario Gomez AP RN, C.N.P., M.S. [address] [place] [address] [phone] (Mj godoy) 06/29/2022 Infusion Oncology Maria Del Rosario Gomez APRN, C.N .P., M.S. [address] [place] [address] [phone] (Mj godoy) documented as of this encounter Procedures Procedure Name Priority Date/Time Associated Comments Diagnosis LDA ANE ENDOTRACHEAL Routine 10/29/2020 2:04 PM R esults for this AIRWAY CITY DISTRIBUTION CLERK procedure are i n the results section. documented in this encounter Results LDA ANE ENDOTRACHEAL AIRWAY (10/29/2020 2:04 PM CITY DISTRIBUTION CLERK) Narrative Jermaine Coreas APRN, CRNA - 2020 2:04 PM CITY DISTRIBUTION CLERK Jermaine Coreas APRN, CRNA ? 10/29/2020 ??2:05 PM Airway Date/Time: 10/29/2020 1:49 PM Performed by: Jermaine Coreas APRN, CRNA Authorized by: Jermaine Coreas APRN, CRNA Care team members present 1. Jermaine Coreas APRN, CRNA 3. Celso Adams M.D. Patient location during procedure: OR / Procedure Area PROCEDURE DETAILS: Mask difficulty assessment: not attempte d Final airway type: video laryngoscope Laryngeal Manipulation: no ?? Final best view of glottic structures - Cormack/Lehane Score: grade 2A ETT location: oral VL device: glide scope Bowie scope blade size: 4 Adult tube size: 7 Adult ETT distance at teeth/gum: 23 Oral tube type: standard ETT Cuffed: yes Airway confirmation: bilateral breath so unds, positive ETCO2 and bilateral chest rise Other previous techniques attempted: non e PRE PROCEDURE DETAILS: Pre evaluation for airway management: pr ocedure Urgency: elective Preop assessment of probable difficulty: questionable / suspicious difficult airway Preoxygenation: bag valve mask SEDATION / ANESTHESIA Anesthesia method: anesthesia POST PROCEDURE DETAILS: ? Procedure outcome: successful ?? Airway event: no complications Jermaine Coreas APRN, CRNA ANESTHESIA ORDERABLES documented in this encounter Visit Diagnoses Not on filedocumented in this encounter Administered Medications Inactive Administered Medications - up to 3 most recent administrations Medication Order MAR Action Action Date Dose Rate Site ePHEDrine (PF) injection Given 10/29/2020 3:09 PM CITY DISTRIBUTION CLERK 5 mg intravenous, As needed, Starting on Sandra 10/29/20 at 1509, Anesthesia Intra-op fentaNYL injection (SUBLIMAZE) Given 10/29/2020 1:41 PM CITY DISTRIBUTION CLERK 50 mcg intravenous, As needed, Starting on Sandra 10/29/20 at 1334, Anesthesia Intra-op Given 10/29/2020 1:34 PM CITY DISTRIBUTION CLERK 50 mcg lactated ringers New Bag 10/29/2020 2:49 PM CITY DISTRIBUTION CLERK intravenous, Continuous Infusion: Per Instructions PRN, Starting on Sandra 10/29/20 at 1332, Anesthesia Intra-op New Bag 10/29/2020 1:32 PM CITY DISTRIBUTION CLERK lidocaine (PF) (cardiac) injection Given 10/29/2020 1:44 PM CITY DISTRIBUTION CLERK 40 mg intravenous, As needed, Starting on Sandra 10/29/20 at 1344, Anesthesia Intra-op phenylephrine injection Given 10/29/2020 3:04 PM CITY DISTRIBUTION CLERK 100 mcg intravenous, As needed, Starting on Sandra 10/29/20 at 1404, Anesthesia Intra-op Given 10/29/2020 2:58 PM CITY DISTRIBUTION CLERK 100 mcg Given 10/29/2020 2:50 PM CITY DISTRIBUTION CLERK 100 mcg propofol 10 mg/mL infusion Rate/Dose 10/29/2020 3:07 50 mcg/kg/min 2 1.9 mL/hr (DIPRIVAN) Change PM CITY DISTRIBUTION CLERK intravenous, Continuous Infusion: Per Instructions PRN, Starting on Sandra 10/29/20 at 1349, Anesthesia Intra-op Rate/Dose Change 10/29/2020 2:27 PM CITY DISTRIBUTION CLERK 75 mcg/kg/min 32.9 mL/hr Rate/Dose Change 10/29/2020 2:21 PM CITY DISTRIBUTION CLERK 100 mcg/kg/min 43.8 mL/hr propofoL injection (DIPRIVAN) Given 10/29/2020 1:44 PM CITY DISTRIBUTION CLERK 170 mg intravenous, As needed, Starting on Sandra 10/29/20 at 1344, Anesthesia Intra-op succinylcholine (PF) injection (ANECTINE ) Given 10/29/2020 1:44 PM CITY DISTRIBUTION CLERK 120 mg intravenous, As needed, Starting on Sandra 10/29/20 at 1344, Anesthesia Intra-op documented in this encounter Care Teams Mortgage Funder Relationship Specialty Start Date End Date Elsewhere, Pcp PCP - General Family Medicine 08/12/20 documented as of this encounter
--- OUTSIDE RECORDS SUMMARY | 2022-06-18 16:20 | XMS_ITS | Encounter Summary ---
:[address] [facility] Address [address] [place] [address] Care Team Providers Name Role Phone Elsewhere, [...] How often do you attend hoahaoism or lutheran services? 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 [address] [place] [phone] (Wo jayne) 06/22/2022 Infusion Oncology FriendshipMaria Del Rosario pierre APRN, Remy.N .P., M.S. [address] [place] [address] [phone] (Wo rk) 06/29/2022 Lab Laboratory Medicine Maria Del Rosario Gomez AP RN, C.N.P., M.S. [address] [place] [address] [phone] (Wo rk) 06/29/2022 Infusion Oncology Maria Del Rosario Gomez APRN, Remy.N .Pamela., M.S. [address] [place] [phone] (Wo rk) documented as of this encounter Procedures Procedure Name Priority Date/Time Associated Comments Diagnosis GASTROENTEROLOGY IMAGE Routine 10/26/2020 1:15 Re sults for this EXAM PM SPINNING FRAME CHANGER procedure are i n the results section. documented in this encounter Results Upper EUS-Gastroenterology Image Exam (10/26/2020 1:15 PM SPINNING FRAME CHANGER) Specimen (Source) Anatomical Location Collection Method / Collectio n Time Received Time / Laterality Volume Narrative IIMS - 10/26/2020 6:14 PM SPINNING FRAME CHANGER This order has been created and auto-finalized to support the import of images acquired without order. The clini rudy documentation to support these images can be found on the encounter pritesh t produced images. Provider Not In System IMG NON RAD IMAGING PROCEDUR ES Performing Organization Address City/State/ZIP Code Phon e Number IICA IIMS NA documented in this encounter Visit Diagnoses Not on filedocumented in this encounter Care Teams Microwave Technician Relationship Specialty Start Date End Date Elsewhere, Pcp PCP - General Family Medicine 08/12/20 documented as of this encounter
--- OUTSIDE RECORDS SUMMARY | 2022-06-18 16:20 | XMS_ITS | Encounter Summary ---
:1965 Author Organization [facility] Address [address] [place] [address] Care Team Providers Name Role Phone Elsewhere, Pcp Primary Care Provider Unavailable Encounter Details Date Type Department Care Team Description 10/29/2020 Ancillary Procedure Department of Gastroenterology Social History [...] How often do you attend judaism or episcopalian services? Never 01/15/2021 Do you [...] Date Recorded Male 08/18/2021 2:55 PM MANAGER CENTER documented as of this encounter Plan of Treatment Upcoming Encounters Date Type Specialty Care Team Description 06/22/2022 Lab Laboratory Medicine Maria Del Rosario Gomez AP RN, C.N.P., M.S. [address] [place] [address] [phone] (Wo jayne) 06/22/2022 Infusion Oncology Maria Del Rosario Gomez APRN, Remy.N .P., M.S. [address] [place] [address] [phone] (Wo rk) 06/29/2022 Lab Laboratory Medicine AdMaria Del Rosario pierre AP RN, C.N.P., M.S. [address] [place] [address] [phone] (Wo rk) 06/29/2022 Infusion Oncology Maria Del Rosario Gomez APRN, C.N .Pamela., M.S. [address] [place] [address] [phone] (Wo rk) documented as of this encounter Procedures Procedure Name Priority Date/Time Associated Diagnosis Comme nts GI AND GENERAL Routine 10/29/2020 1:35 PM Results for this SURGERY IMAGE EXAM MANAGER CENTER procedure are in the results section. documented in this encounter Results ERCP-GI And General Surgery Image Exam (10/29/2020 1:35 PM MANAGER CENTER) Specimen (Source) Anatomical Collection Method Collection Time Re ceived Time Location / / Volume Laterality 10/29/2020 1:31 PM MANAGER CENTER Narrative IIMS - 10/29/2020 3:22 PM MANAGER CENTER This order has been created and auto-finalized [...] on filedocumented in this encounter Care Teams Radiology Receptionist Relationship Specialty Start Date End Date Elsewhere, Pcp PCP - General Family Medicine 08/12/20 documented as of this encounter
--- OUTSIDE RECORDS SUMMARY | 2022-06-18 16:20 | XMS_ITS | Encounter Summary ---
:1965 Author Organization [facility] Address [address] [place] [address] Care Team Providers Name Role Phone Elsewhere, Pcp Primary Care Provider Unavailable Encounter Details Date Type Department Care Team Description 10/23/2020 Documentation Department of Oncology in [place] Avalos M.D. [place], [place] [address] [facility] [address] [place] [phone] (Wo rk) Social History Tobacco Use Types [...] How often do you attend scientology or bahai services? 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 - 10/23/2020 12:40 AM CST Patient called and stated that he has some new symptoms since discharge this pm. While in the hospital, he felt heart palpitation and it was thought that he had a [place] based on the EKG initially. After ECHO, he was found to have dehydration. Now, he had the same heart palpitation again. He also had more abdominal pain, dry mouth, swelling in the feet and gait imbalance. He and his family feel that they were not able to manage all of the symptoms at home and would like come to [place]. I think he might need IV hydration/ formal evaluation to address the acute issues. Also due to the medical complexity, he is suggested to come to the hospital for evaluation. He will ask his daughter to bring him to [place]. ESSOGRAPH OPERATOR documented in this encounter Plan of Treatment Upcoming Encounters Date Type Specialty Care Team Description 06/22/2022 Lab Laboratory Medicine Maria Del Rosario Gomez AP RN, C.N.P., M.S. [address] [place] [phone] (Mj godoy) 06/22/2022 [facility] .[facility] M[facility] [address] [place] [address] [phone] (Mj godoy) 06/29/2022 Lab Laboratory [facility] AP RN, C.N.P., M.S. [address] [place] [address] [phone] (Mj godoy) 06/29/2022 Infusion Oncology Maria Del Rosario Gomez APRN C.N .P., M.S. [address] [place] [address] [phone] (Mj godoy) documented as of this encounter Visit Diagnoses Not on filedocumented in this encounter Care Teams Slip Seat Coverer Relationship Specialty Start Date End Date Elsewhere, Pcp PCP - General Family Medicine 08/12/20 documented as of this encounter
--- OUTSIDE RECORDS SUMMARY | 2022-06-18 16:21 | XMS_ITS | Encounter Summary ---
:1965 Author Organization [facility] Address [address] [place] [address] Care Team Providers Name Role Phone Elsewhere, Pcp Primary Care Provider Unavailable Encounter Details Date Type Department Care Team Description 10/01/2020 Ancillary Procedure Department of Gastroenterology Social History [...] How often do you attend islam or tenriism services? Never 01/15/2021 Do you [...] Date Recorded Male 08/18/2021 2:55 PM INDUSTRIAL RELATIONS SPECIALIST documented as of this encounter Plan of Treatment Upcoming Encounters Date Type Specialty Care Team Description 06/22/2022 Lab Laboratory Medicine Maria Del Rosario Gomez AP RN, C.N.P., M.S. [address] [place] [address] [phone] (Wo jayne) 06/22/2022 Infusion Oncology Maria Del Rosario Gomez APRN, Remy.N .P., M.S. [address] [place] [address] [phone] (Wo rk) 06/29/2022 Lab Laboratory Medicine Maria Del Rosario Gomez AP RN, C.N.P., M.S. [address] [place] [address] [phone] (Wo rk) 06/29/2022 Infusion Oncology Maria Del Rosario Gomez APRN, Remy.N .Pamela., M.S. [address] [place] [address] [phone] (Wo rk) documented as of this encounter Procedures Procedure Name Priority Date/Time Associated Comments Diagnosis GASTROENTEROLOGY IMAGE Routine 10/01/2020 2:50 Re sults for this EXAM PM INDUSTRIAL RELATIONS SPECIALIST procedure are i n the results section. documented in this encounter Results ERCP-Gastroenterology Image Exam (10/01/2020 2:50 PM INDUSTRIAL RELATIONS SPECIALIST) Specimen (Source) Anatomical Collection Method Collection Time Re ceived Time Location / / Volume Laterality 10/01/2020 2:49 PM INDUSTRIAL RELATIONS SPECIALIST Narrative IIMS - 10/01/2020 3:51 PM INDUSTRIAL RELATIONS SPECIALIST This order has been created and auto-finalized [...] on filedocumented in this encounter Care Teams Speeder Operator Relationship Specialty Start Date End Date Elsewhere, Pcp PCP - General Family Medicine 08/12/20 documented as of this encounter
--- OUTSIDE RECORDS SUMMARY | 2022-06-18 16:21 | XMS_ITS | Encounter Summary ---
:1965 Author Organization [facility] Address [address] [place] [address] Care Team Providers Name Role Phone Elsewhere, Pcp Primary Care Provider Unavailable Reason for Visit Reason Comments Intake Assessment Encounter Details Date Type Department Care Team Description 10/14/2020 Clinical Communication Department of Deborah Murray [place] [address] [facility] [address] [place] [phone] Social History Tobacco Use Types Packs/Day Years [...] at Date Recorded Male 08/18/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 [address] [place] [address] [phone] (Wo rk) 06/22/2022 Infusion Oncology Maria Del Rosario Gomez APRN, C.N .P., M.S. [address] [place] [address] [phone] (Wo rk) 06/29/2022 Lab Laboratory Medicine Maria Del Rosario Gomez AP RN, C.N.P., M.S. [address] [place] [address] [phone] (Wo rk) 06/29/2022 Infusion Oncology Maria Del Rosario Gomez APRN, C.N .P., M.S. [address] [place] [address] [phone] (Wo rk) documented as of this encounter Visit Diagnoses Not on filedocumented in this encounter Care Teams Video Surveillance Technician Relationship Specialty Start Date End Date Elsewhere, Pcp PCP - General Family Medicine 08/12/20 documented as of this encounter
--- OUTSIDE RECORDS SUMMARY | 2022-06-18 16:21 | XMS_ITS | Encounter Summary ---
:1965 Author Organization [facility] Address [address] [place] [id number] Care Team Providers Name Role Phone Elsewhere, Pcp Primary Care Provider Unavailable Reason for Visit Auth/Cert Specialty Diagnoses / Procedures Referred By Contact Refer red To Contact Diagnoses Abscess Pancreas (HCC) Procedures DIR Referral ID Status Reason Start Date Expiration Date Visits Requ ested Visits Authorized [id number] 1 1 Encounter Details Date Type Department Care Team Description 10/01/2020 - Hospital Encounter [facility] [place], Abscess P ancreas 10/02/2020 [facility], [place] [facility] Alberto M.D., (HCC) (Pr imary Dx) [facility], Ph.D. [facility], [address] [place] [address] Third Floor [place], [place] [address] [place] [id number] [place], [place] [phone] (Work) [phone] Social History Tobacco Use Types Packs/Day Years [...] How often do you attend hindu or yarsani services? 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 documented as of this encounter Last Filed Vital Signs Vital Sign Reading Time Taken Comments Blood Pressure 99/62 10/02/2020 11:31 AM HAIRSPRING SETTER Pulse 87 10/02/2020 11:31 AM HAIRSPRING SETTER Temperature 36.2 ??C (97.2 ??F) 10/02/2020 11:31 AM HAIRSPRING SETTER Respiratory Rate 14 10/02/2020 11:31 AM HAIRSPRING SETTER Oxygen Saturation 97% 10/02/2020 11:31 AM HAIRSPRING SETTER Inhaled Oxygen Concentration - - Weight 71.2 kg (156 lb 15.5 oz) 10/01/2020 1:34 PM HAIRSPRING SETTER Height 175.3 cm (5' 9.02) 10/01/2020 1:37 PM HAIRSPRING SETTER Body Mass Index 23.17 10/01/2020 1:34 PM HAIRSPRING SETTER documented in this encounter Discharge Summaries Adam Novoa M.D. - 10/02/2020 10:40 AM CST DISCHARGE SUMMARY BRIEF OVERVIEW Hospital: [facility] Discharge Provider: Aramis Stevens M.D. Primary Team: [facility] Medicine 1 ([facility]) Primary Care Providers: Elsewhere, Pcp (General) No address on file Primary Care Provider Phone Number: None Primary Care Provider Fax Number: None Other Providers: None Admission Date: 10/01/2020 Discharge Date: 10/02/2020 PRINCIPAL DIAGNOSIS Obstruction Common Bile Duct SECONDARY DIAGNOSES Principal Problem: Obstruction Common Bile Duct Active Problems: Malignant Neoplasm Of Pancreas (HCC) Pancreatitis Post Endoscopic Retrograde Cholangiopancreatography (HCC) Portal Vein Thrombosis Pseudocyst Pancreas (HCC) Acute Pancreatitis With Infected Necrosis Unspecified (HCC) Thrombosis Splenic Vein Acute Pleural Effusion In Other Conditions Classified Elsewhere Resolved Problems: * No resolved hospital problems. * DISCHARGE DISPOSITION Home or Self Care [1] ACTIVE ISSUES REQUIRING FOLLOW UP - Seek medical attention if have recurrence of pain - Follow up w/ GI / Onc and labs as scheduled 10/05 OUTPATIENT FOLLOW UP Scheduled Appointments 10/05/2020 7:20 AM ERASTO OCHOA RN [facility] Infusion Therapy 10/05/2020 8:30 AM Nany De La Torre M.S., RDN, LD Nutrition 10/05/2020 11:00 AM Deborah Murray M.B.B.S. Oncology 10/05/2020 1:[address] [facility] LOS 814 Radiology For appointment details refer to your Patient Appointment Guide. TEST RESULTS PENDING AT DISCHARGE Pending Labs Order Current Status Bacteria / Brigid Culture, Blood #1 In process Bacteria / Brigid Culture, Blood #2 In process DETAILS OF HOSPITAL STAY REASON FOR ADMISSION Abscess Pancreas (HCC) HOSPITAL COURSE Mr. Adam Campbell is a 55 y.o. male w/ a h/o pancreatic adenocarcinoma, post ERCP pancreatitiswith necrotizing pancreatitis who presents with worsening abdominal pain and pancreatic abscess. Hispancreatic adenocarcinoma was diagnosed in 07/2020 and has not undergone any chemo radiation or surgery. 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 He also had strep anginosis bloodstream infection in August which was related to his pancreatitis. He was evaluated by ERCP/EUS specialists??for potential drainage of these peripancreatic fluid collections. ??However, it was felt that the loculated fluid collections were not mature enough forcystgastrostomy and drainage. He last saw his GI doctor on 09/23 at which point he had his CT imaging reviewed and demonstrated the peripancreatic fluid collections had improved and may no longer be infected thus his ertapenem was discontinued last week. Patient was seen 09/30 in his local emergency department in [place], [place] with worsening left-sided abdominal pain. A CT scan there showed continued necrosis of his pancreas and stable pancreatic cancer. He had no fever and his white count was 10.5. ?? In describing the pain, the patient states that he has never had pain like this before. He 1st had the pain at 3:00 a.m. in the morning yesterday which he described as a intense aching throughout his entire left abdomen and into his chest. He states that the pain feels like a full gas feeling that youcould pop and feels like someone is sitting on his abdomen and chest. The pain eventually went away after he took his normal pain medication at home but recurred each time that he attempted to eat throughout the day, occurring 1-2 hours after eating. He has not had any vomiting but at times when thepain comes on he feels nauseous and feels like he could vomit if he tried. Upon arrival, his pain was well controlled and required 1 dose of Dilaudid. EKG and troponin were negative and were drawn due to him describing his pain going to his chest. His labs were remarkable forelevated bilirubin at 2.4 and direct at 2.0. His transaminases and alk-phos were also significantly more elevated compared to previous labs. GI was consulted and decision was made to undergo ERCP whichpatient underwent on 10/01. Fortunately, his previous stents were patent however there is a localized biliary stricture in the common bile duct which received treatment with a bare metal stent. Patient's bilirubin normalized by 10/02 with transaminases trending downward. He was able tolerate a normal di et without any recurrence of his pain. His cultures were negative any not have any elevated white count or fever during his stay thus his Zosyn was discontinued. He was provided a refill on his daily pain medications which he takes for cancer pain. CONSULTS ORDERED DURING THIS ADMISSION IP CONSULT TO GASTROENTEROLOGY IP CONSULT TO INFECTIOUS DISEASES IP CONSULT TO KEYPUNCH OPERATORS SUPERVISOR INDUSTRIAL ROOFER IP CONSULT TO DIETITIAN IP CONSULT TO CARE MANAGEMENT Procedures Performed: ERCP CONDITION AT DISCHARGE stable Discharge instructions were provided to the patient and caregiver(s). SPRING SETTER documented in this encounter Discharge Instructions Discharge InstructionsHoLudmila perry - 10/01/2020 7:07 AM CST You were discharged from the [facility] Medicine 1 ([facility]) Service. Please identify this service name if you call with questions after hospitalization. SPRING SETTER documented in this encounter Medications at Time of Discharge Medication Sig Dispensed Refills Start Date End Date acetaminophen (TYLENOL) Take 1 tablet (500 0 12/01/202001/01/2021 500 mg tablet mg total) by mouth every 6 (six) hours. enoxaparin (LOVENOX) 80 Inject 0.8 mL (80 120 Syringe 0 /01/202010/30/2020 mg/0.8 mL injection mg total) under the skin 2 (two) times a day. sennosides (SENOKOT) 8.6 Take 8.6 mg by 0 10/22/2020 mg tablet mouth daily. pantoprazole (PROTONIX) Take 1 tablet (40 90 tablet 3 10/0210/02/2021 40 mg EC tablet mg total) by mouth every morning before breakfast. oxyCODONE (ROXICODONE) 5 Take 1 tablet (5 30 tablet 0 10/0210/22/2020 mg immediate release mg total) by mouth tabletIndications: every 6 (six) Chronic Pain/Nonacute hours as needed Pain for pain Indication: Chronic Pain/Nonacute Pain. documented as of this encounter Progress Notes Aramis Stevens M.D., Ph.D. - 10/02/2020 10:48 AM CST Personally met with patient. Concur with plan a care medicine 1 from 10/02/2020. After common bile duct stents placed he has had no further acute episodes of pain. White counts improved. Transaminases improved. Bilirubin improved. He is appropriate for dismissal today. #1 Obstruction Common Bile Duct #2 Acute Pancreatitis With Infected Necrosis Unspecified (HCC) #3 Pancreatitis Post Endoscopic Retrograde Cholangiopancreatography (HCC) #4 Pseudocyst Pancreas (HCC) #5 Malignant Neoplasm Of Pancreas (HCC) #6 Portal Vein Thrombosis #7 Thrombosis Splenic Vein Acute #8 Pleural Effusion In Other Conditions Classified Elsewhere SPRING SETTER Belia Taylor M.D. - 10/02/2020 10:38 AM CST GASTROENTEROLOGY CONSULT PROGRESS NOTE IMPRESSION AND PLAN #1 Necrotizing post ERCP pancreatitis #2 Infected peripancreatic necrosis, recently stopped antibiotics #3 Portal vein and splenic vein thrombosis on enoxaparin #4 Pancreatic adenocarcinoma #5 Common bile duct stricture s/p biliary stent #6 Recent Strep anginosus bacteremia #7 Severe narrowing of the SMV #8 concern for possible infected portal vein thrombosis Mr. Campbell underwent ERCP yesterday afternoon. This showed a single tight localized biliary stricturein the common bile duct consistent with tissue ingrowth. A covered metal stent could not be placed as the cystic duct entered the common bile duct at the location of the stent. A covered metal stent with therefore risk occluding the cystic duct and causing cholecystitis. One bare metal stent was therefore placed in the existing stent. I visited with Mr. Campbell this morning and reviewed this. His abdominal pain is gone and he was able to eat breakfast without difficulty. Additionally, his bilirubin is normal this morning and his livertests are downtrending. From a GI perspective I see no contraindication to discharge today if that is in line with the primary team's plan. We will sign off at this time but please do not hesitate to contact us with any further questions. As for possible necrosectomy, I did review this with Dr. Cassidy yesterday. At this time the fluid collections remain immature, additionally Mr. Campbell is asymptomatic in respect to these fluid collections, and necrosectomy risks causing infection in the fluid collections. The fluid collections are not a contraindication to chemotherapy while an infection would be. At this point, we therefore do not recommend necrosectomy. Patient discussed with Dr. Gottlieb. ??Gastroenterology will sign off. ??Please page [phone] with questions. SPRING SETTER Tana Mejia M.D. - 10/02/2020 7:41 AM CST Infectious Diseases [facility] Consulting Service Sign Off Note SUBJECTIVE REASON FOR CONSULTATION [facility] service pager at [phone] is following Adam Campbell for history of strep anginosus bacteremia. EVENTS OVER THE PAST 24 HOURS: Underwent ERCP yesterday which revealed a biliary stricture in the common bile duct which was stented. OBJECTIVE VITAL SIGNS BP 97/64 (BP Location: Left arm;Upper, Patient Position: Sitting) Pulse 71 Temp 36.6 ??C (Oral) Resp 16 Ht 175.3 cm Wt 71.2 kg SpO2 95% BMI 23.17 kg/m?? General: Laying in bed, no acute distress HEENT: anicteric sclera Heart: RRR Lungs: CTA bilat Abdomen: soft, nontender Extremities: No edema DIAGNOSTICS I have reviewed diagnostics. ASSESSMENT / PLAN Mr. Campbell is a 55 yo man w/ borderline resectable pancreatic adenocarcinoma c/b necrotizing pancreatitis who was readmitted with severe episodic post-prandial abdominal pain and found to have a biliarystricture. ?? No systemic signs of infection. Patient remains afebrile and hemodynamically stable. Symptoms have resolved following the procedure yesterday and LFTs are improving. #1 Malignant Neoplasm Of Pancreas (HCC) #2 Pancreatitis Post Endoscopic Retrograde Cholangiopancreatography (HCC) #3 Portal Vein Thrombosis #4 Pseudocyst Pancreas (HCC) #5 Acute Pancreatitis With Infected Necrosis Unspecified (HCC) #6 Thrombosis Splenic Vein Acute #7 Obstruction Common Bile Duct #8 Pleural Effusion In Other Conditions Classified Elsewhere RECOMMENDATIONS: 1. If cultures are negative, please discontinue antibiotics We will sign off at this time. Please page [facility] service pager at [phone] with any questions. INFECTIOUS DISEASES SIGN OFF NOTE: Primary Team 1. Sign off antibiotics: None Infectious Diseases 1. Follow up indicated: Virtual follow up on Oct 14 as previously planned SPRING SETTER Rachel Pérez - 10/01/2020 1:44 PM CST Clinical Nutrition: Initial Assessment RECOMMENDATIONS REQUIRING MD/PROVIDER ORDER No changes at this time; continue current nutrition orders For questions about patient's nutritional care please contact pager [phone] on weekdays or [phone] on weekends/holidays. on weekends/holidays. NUTRITION ASSESSMENT: Mr. Campbell is a 55 y.o. male who was admitted for abdominal pain and pancreatic abscess. PMH includespancreatic adenocarcinoma (07/2020), post ERCP pancreatitis with necrotizing pancreatitis. Pertinentmedications include protonix, senokot, and miralax. Pertinent labs include decreased lipase (12 U/L), and elevated liver and biliary labs. Completed visit with patient today as part of face to face care. Requested to see patient for evaluation of: positive nursing baseline nutrition screen with a MST score of 2 or greater. MST screened for significant weight loss. MALNUTRITION CRITERIA: Nutrition focused physical exam completed by this writer technical publications today and revealed the following: Recent Oral Intake Average estimated Intake: No Change Weight Changes Weight Loss: >7.5% in 3 months(-22.2% in 3 months) Body Fat Body Fat: Moderate Loss Orbital Region: Slightly dark circles, somewhat hollow look Upper Arm Region (Triceps/biceps): Some depth of pinch, but not ample Muscle Mass Muscle Mass: Moderate Loss(pt reports a significant decrease in muscle mass from baseline) Temporal Region (Temporalis Muscle): Slight depression Clavicle Bone Region (Pectoralis Major, Deltoid, Trapezious Muscles: Visible in male, some protrusion in female Clavicle and Acromion Bone Region (Deltoid Muscle) : Acromion process may slightly protrude Dorsal Hand (Interosseous Muscle): Muscle bulges or is flat Posterior Calf Region (Gastrocnemious Muscle) : Well-developed bulb of muscle Nutritional Status: Non-severe (moderate) Malnutrition Malnutrition in the Context of: Chronic Illness Current nutrition orders: No oral nutrition, no tube feeding starting at 10/01 215 Current Nutrition (since admission): Patient has been NPO today. He hopes to be able to eat once everything is cleared. He is not concerned with his intake at this time as he knows what's good for me and what's not. Provided a low-fat smoothie list and snack menu for patient when he is able to eat to increase oral intake. He was not interested in oral nutrition supplements at this time. Patient shared that he would like to gain weight and that eating enough/more food was his main barrier rather than a poor appetite. He did mention he likes to stay active by riding his indoor bike and walking at least 3x per day. 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 He tries toavoid greasy foods, spicy foods, and higher fat foods that bother him. He notes he probably doesn't get enough fluids in, but does drink water with flavoring in it. He mentioned that he reads online what he should eat such as cold type artist wheat bread, the [employer] milk, and avoids corn, in regard to his cancer. Emphasized to the patient good calorie and protein intake is important to help maintain weight and muscle mass and following lower-fat diet can help manage his pancreatitis. Food Allergies: Denied Food Intolerance: Denied Chewing/Swallowing Issues: Denied ANTHROPOMETRICS: Height: 175.3 cm Admission Weight: 71.2 kg (10/01/2020) Usual Body Weight: 90.9 kg (200 lbs per pt report) BMI (Calculated): 23.2 kg/m?? Weight Change History: 10/01/19: 71.2 kg 09/12/19: 76.2 kg 08/12/20: 82.4 kg 08/05/20: 87.9 kg 07/09/20: 91.6 kg -20 kg (-22.2%) wt loss in the past 3 months. Patient's goal is to gain weight back up to 81.8 kg (180 lbs). ESTIMATED NEEDS: Total Calorie Needs: 3206-9376 calories/day Method to Estimate Energy Needs: Ramirez-Lowden (Basal to Basal + 20%) Weight Used for Equation Calculations: 71.2 kg (admit wt) Total Protein Needs: 71 - 85 grams/day Method to Estimate Protein Needs (g/kg): 1 - 1.2 gm/kg Weight Used to Calculate Protein Needs (Kg): 71.2 kg (admit wt) NUTRITION DIAGNOSIS: Malnutrition (undernutrition) related to pancreatic cancer as evidenced by significant weight loss (-22.2% in 3 months) and NFPE findings. NUTRITION PLAN/MONITORING/EVALUATION: Interventions: Increase nutrient intake with small, frequent meals and/or snacks, Provide education to increase nutrition knowledge. SPRING SETTER Willis Manzanares M.D. - 10/01/2020 7:37 AM CST I reviewed and agree with the findings and recommendations made by Dr. 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 The patient is very well-known to our Infectious Diseases Services. The summary of his complicated medical and surgical problems are outl ined very nicely in the comprehensive notes by Dr. Mejia and Dr. Card. The patient completed a six week course of antibiotic therapy initially with ceftriaxone and then ertapenem for Streptococcus anginosus bloodstream infection. He was seen in follow-up on September 23, 2020 and seemed to be stable and the decision was to give him an antibiotic holiday in anticipation of his next round of chemotherapy. The CT scan done at that time showed no specific changes. On September 30, 2020 he developed severe acute abdominal pain around 3:00 a.m.. Throughout the day heexperience severe abdominal pain postprandially. He did not have fever chills or signs of systemic infection. He came in for evaluation and was admitted. Blood cultures were obtained and he was startedon therapy with Zosyn. Repeat CT scan of the abdomen did not show significant changes compared with previous imaging. His white blood cell count is 13.5 but it has been in this range more less since August 12, 2020. 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 He received a six week course of antibiotic therapy with ceftriaxone and then ertapenem for Streptococcus anginosus bloodstream infection. He completed the course of ertapenem on September 23 and the plan was to give him an antibiotic holiday in anticipation ofhis next round of chemotherapy. He developed severe postprandial abdominal pain without fever chillsor signs of systemic infection was admitted. Our recommendations are outlined in the excellent comprehensive note by Dr. Mejia 1. I am not sure this represents a recurrence of infection at this time but we agree with beginning therapy with Zosyn until blood cultures are reported and the situation is further clarified. 2. We will observe him on antibiotic therapy, follow him clinically, see how he does and we can plannext steps including the nature and duration if any of antibiotic therapy Willis Manzanares M.D. SPRING SETTER documented in this encounter H&P Notes Aramis Stevens M.D., Ph.D. - 10/01/2020 12:22 PM CST Personally met with patient. Concur with plan a care medicine 1 from 10/01/2020. He presents with abdominal pain. Transaminases and bilirubin have increased. We suspect he has a stent obstruction that has resulted common bile duct obstruction with impending cholangitis. Will continue vancomycin. Will refer on to ERCP. Appreciate infectious disease and gastroenterology recommendations. #1 Obstruction Common Bile Duct #2 Acute Pancreatitis With Infected Necrosis Unspecified (HCC) #3 Pancreatitis Post Endoscopic Retrograde Cholangiopancreatography (HCC) #4 Pseudocyst Pancreas (HCC) #5 Malignant Neoplasm Of Pancreas (HCC) #6 Portal Vein Thrombosis #7 Thrombosis Splenic Vein Acute #8 Pleural Effusion In Other Conditions Classified Elsewhere SPRING SETTER Adam Novoa M.D. - 10/01/2020 12:38 AM CST [facility] Medicine 1 ([facility]) Admission Note SUBJECTIVE CHIEF COMPLAINT Pancreatic Abscess HISTORY OF PRESENT ILLNESS Mr. Adam Campbell is a 55 y.o. male w/ a h/o pancreatic adenocarcinoma, post ERCP pancreatitiswith necrotizing pancreatitis who presents with worsening abdominal pain and pancreatic abscess. Hispancreatic adenocarcinoma was diagnosed in 07/2020 and has not undergone any chemo radiation or surgery. 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 He also had strep anginosis bloodstream infection in August which was related to his pancreatitis. He was evaluated by ERCP/EUS specialists for potential drainage of these peripancreatic fluidcollections. However, it was felt that the loculated fluid collections were not mature enough for cystgastrostomy and drainage. He last saw his GI doctor on 09/23 at which point he had his CT imaging reviewed and demonstrated the peripancreatic fluid collections had improved and may no longer be infected. They were considered a cyst gastrostomy in the future once the collections fully matured. He last saw infectious disease on 09/23 at which point the plan was to continue his ertapenem for 2 weeks. Patient was seen today in his local emergency department in [place], [place] with worsening left-sided abdominal pain. A CT scan there showed continued necrosis of his pancreas and concern for abscess. He had no fever and his white count was 10.5. In describing the pain, the patient states that he has never had pain like this before. He 1st had the pain at 3:00 a.m. in the morning yesterday which he described as a intense aching throughout his entire left abdomen and into his chest. He states that the pain feels like a full gas feeling that youcould pop and feels like someone is sitting on his abdomen and chest. The pain eventually went away after he took his normal pain medication at home. He then had breakfast at 9:00 a.m. and noticed byabout 11:00 a.m. the same pain recurred in the same location. It went away after a couple hours but then after eating again at 6:00 p.m. the pain recurred after 1-2 hours. He does not have any associated shortness of breath and the pain does not get worse with movement nor does he have any radiation up his neck or down his arm. He has not had any vomiting but at times when the pain comes on he feels nauseous and feels like he could vomit if he tried. I have reviewed and updated the following: Past Medical History, Family History, Social History, andAllergies. 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 Current Outpatient Medications on File Prior to Encounter: ??? acetaminophen (TYLENOL) 500 mg tablet, Take 1 tablet (500 mg total) by mouth every 6 (six) hours. ??? enoxaparin (LOVENOX) 80 mg/0.8 mL injection, Inject 0.8 mL (80 mg total) under the skin 2 (two) times a day. ??? ertapenem (INVanz) 100 mg/mL injection, Infuse 10 mL (1 g total) into a venous catheter daily for 16 days Indications: Intra-abdominal infection, community acquired. Stop date: Oct 09, 2020. ??? oxyCODONE (ROXICODONE) 5 mg immediate release tablet, Take 1 tablet (5 mg total) by mouth every 6 (six) hours as needed for pain Indication: Prolonged Acute Pain/Traumatic Injury. ??? pantoprazole (PROTONIX) 40 mg EC tablet, Take 40 mg by mouth every morning before breakfast. ??? polyethylene glycol (MIRALAX) 17 gram/dose oral powder, Take 17 g by mouth. Dissolve each 17 g dose in 240 mLs (8 ounces) of beverage. ??? sennosides (SENOKOT) 8.6 mg tablet, Take 8.6 mg by mouth daily. ??? sodium chloride 0.9 % injection, Infuse 5 mL into a venous catheter as needed for line care for up to 20 days. REVIEW OF SYSTEMS Pertinent items are noted in HPI; all other review of systems was negative. OBJECTIVE VITAL SIGNS Temperature: [36.4 ??C-36.8 ??C] 36.4 ??C Resp Rate: [18-20] 20 Blood Pressure: (111-119)/(74-78) 119/75 SpO2: [98 %-99 %] 98 % Pulse Rate: [89-94] 89 PHYSICAL EXAM GEN: Alert, no acute distress sitting up in bed CV: Regular rate and rhythm, no lower extremity edema RESP: Breathing comfortably on room air GI: Tenderness to left upper quadrant left lower quadrant, no rebound tenderness, soft, no CVA tenderness EXT: Moving extremities x4 PSYCH: Normal mood and reactive affect, pleasant DIAGNOSTICS I have reviewed the labs and diagnostics from admission. ASSESSMENT / PLAN Mr. Adam Campbell is a 55 y.o. male w/ a h/o pancreatic adenocarcinoma, post ERCP pancreatitiswith necrotizing pancreatitis who presents with worsening abdominal pain and pancreatic abscess. He also has a history of infected portal vein thrombosis and severely narrowed SMV and splenic vein. Repeating workup, controlling pain, consulting GI/ID and covering w/ zosyn. #Pancreatic adenocarcinoma #H/o Necrotizing pancreatitis #H/o Post-ERCP pancreatitis #H/o strep anginosus bacteremia, now on ertapenem OPAT Pancreatitis vs cancer pain vs worsening necrotizing pancreatitis. CT-Abd demonstrated stable necrotizing pancreatitis and pancreatic malignancy. 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 Diet: general diet Tubes/lines: PIV VTE prophylaxis: enoxaparin Code status: Full Code Disposition: Home Note by Adam Novoa M.D., Medicine 1 Team Please page [phone] with any questions SPRING SETTER Herminio Escobar M.D. - 10/01/2020 12:38 AM CST MEDICINE SUPERVISORY ADMISSION NOTE This a supervisory note for Dr. Novoa. I agree with the history, assessment and plan as outlined intheir excellent note. SUBJECTIVE CHIEF COMPLAINT Abdominal Pain HISTORY OF PRESENT ILLNESS Mr. Campbell is a 55-year-old male with pancreatic cancer (diagnosed 07/2020) complicated with biliary stenosis status post stent placement (07/29/2020, complicated with post ERCP pancreatitis), infected nonocclusive portal vein thrombosis (on therapeutic anticoagulation) complicated with strep anginosus bacteremia (08/2020), who is presenting as a direct admission for abdominal pain The patient was discharged from the Gastroenterology Service on 09/15/2020 after he was noted to develop a peripancreatic abscess. He was evaluated at that time by our ERCP/EUS specialists, who felt that the loculated fluid collections were not mature enough for cyst gastrostomy and drainage. He was managed with IV antibiotics and discharged on his ertapenem. The patient followed up with Gastroenterology and Infectious Disease, as well as Medical Oncology on09/23/2020. At that time repeat CT scan showed improved jackelin pancreatic fluid collections, and therefore cyst gastrostomy was delayed. Given improvement of his imaging, his ertapenem was discontinued after discussion between Gastroenterology and Infectious Disease. The purpose of this was to perform atrial off of antimicrobial therapy, prior to initiation of chemotherapy. On 09/30/2020, the patient presented to a local emergency department regarding increased abdominal pain. CT scan was performed and concerning for necrosis of the pancreas and developing abscess. White blood cell count was moderately elevated to 10.5. When discussing with the patient, he reports that at 3:00 a.m. yesterday he developed abdominal painthat was the worst pain he has ever experienced. The pain eventually subsided and then throughout the day he had 2 additional episodes that occurred postprandially (approximately 90 minutes after eating a meal). He describes the pain as sharp and burning, extending from the left lower quadrant up to his chest. He reports a sensation that someone is standing on his chest and abdomen. He has not had any fever, chills, shortness of breath. PHYSICAL EXAM Temperature: [36.4 ??C-36.8 ??C] 36.4 ??C Resp Rate: [18-20] 20 Blood Pressure: (111-119)/(74-78) 119/75 SpO2: [98 %-99 %] 98 % Pulse Rate: [89-94] 89 Gen: Ill-appearing male, sitting upright in bed. Eyes: Sclera white, conjunctiva pink. Neck: Trachea midline. Lungs: Lungs clear CV: Chest pain not reproducible on palpation. Abdominal: Soft abdomen. There is mild tenderness in the epigastrium and the left lower quadrant. Extremities: Warm, well perfused MSK: Good ROM. Neuro: AOOx3. Skin: Color good, skin warm and moist. DIAGNOSTICS I have reviewed the recent hospitalization and current admission labs and imaging. ASSESSMENT / PLAN #1 Peripancreatic Fluid Collections #2 Pancreatic Adenocarcinoma (Diagnosed 07/2020) #3 Acute Post Prandial Abdominal Pain #4 Current Antibiotic Holiday After 6 Weeks of Abx for peripancreatic abscess #5 Prior Infected nonocclusive portal vein thrombosis (on therapeutic anticoagulation) Mr. Campbell is a 55-year-old male with pancreatic cancer (diagnosed 07/2020) complicated with biliary stenosis status post stent placement (07/29/2020, complicated with post ERCP pancreatitis), infected nonocclusive portal vein thrombosis (on therapeutic anticoagulation) complicated with strep anginosus bacteremia (08/2020), who is presenting as a direct admission for abdominal pain The patient has had a very unfortunate and complicated recent clinical course. He was admitted to the gastroenterology service up until 09/15/2020 after he was noted to developing peripancreatic abscesses. He continued ertapenem as an outpatient until follow-up with Infectious Diseases and Gastroenterology on 09/23/2020. At that time repeat CT scan showed improved peripancreatic fluid collections andthe decision was made to attempt a holiday from antimicrobial therapy. On 09/30/2020 the patient developed acute abdominal pain at approximately 3:00 a.m.. He reported that this was the worse abdominal pain he has ever experienced. Throughout the day he experienced abdominal pain approximately 90 minutes after meals on 2 separate occasions. Due to the severity of this pain he presented to the emergency department for further evaluation. A CT scan was performed at the outside emergency department that was concerning for worsening peripancreatic fluid collections. The patient had a mild elevated white count of 10.5. When I reviewed the patient's CT scan and compare to his recent imaging, it is not clear to me whether the patient actually has progressive peripancreatic fluid collections. The development of severe abdominal pain approximately 90 minutes after eating, is concerning for pancreatic pathology such as pa ncreatitis or worsening peripancreatic abscesses. We will request our radiologist review these images and provide us a formal read. We will also provide antimicrobial therapy with Zosyn given the potential for worsening peripancreatic abscesses. Will provide the patient with pain control, requesting to be NPO, and provide fluid hydration. Given our inability to review the outside records from the outside emergency department, we will also obtain repeat baseline labs. Plan: -radiology review of outside images to compare CT scan from 09/30/2020 [facility] -provide antimicrobial therapy in the form of Zosyn -analgesia -for concern of pancreatitis will keep NPO and provide fluid hydration -gastroenterology consult for discussion of cyst gastrostomy -infectious disease consult -trend LFTs and obtained baseline laboratory studies -Given reported chest pain, will obtain ECG and troponin Remainder of plan per Dr. Novoa Edited by: Margarita Gibson, Documentation Services 10/14/20 9:22 AM HAIRSPRING SETTER SPRING SETTER documented in this encounter Consult Notes Rachel West R.N. - 10/01/2020 10:50 AM CSTAssociated Order(s): IP CONSULT TO CARE MANAGEMENT SUBJECTIVE Reason for Referral: A Consult received for Advance Directive materials/education. Care management met with patient. Patient interested in Advance Directive. Education provided on thebenefits of completing an Advance Directive and resources that may assist them in this process including access to a notary. Offered Advance Health Care Planning: Making Your Wishes Known 2107-05 booklet, which was accepted. Education regarding the Care Management role and how to access a member of the Care Management team for further support or questions was shared. OBJECTIVE Patient lying in his hospital bed, alert. ASSESSMENT / PLAN ASSESSMENT The patient appear to have an understanding of how to complete an Advance Directive and report awareness of resources to assist them. PLAN 1) Patient to complete an Advance Directive if desired. 2) If the Advance Directive is completed, the patient retains the original and a copy is sent to scanning to be added to the patient's electronic health record. 3) Care Management will continue to be available as needs or questions arise. Rachel West R.N. 10/01/2020 Aura Upton - 10/01/2020 10:43 AM CSTAssociated Order(s): IP CONSULT TO [employer] SUPERVISOR INDUSTRIAL ROOFER Encounter: Initial inpatient contact Situation: Responded to Spiritual Care consult request. Mr. Campbell asked to see a thermal spray operator. He talkedabout the events of the day and his hopes going forward. He requested prayer, which was provided. Family: No family present; he spoke about his . Neyda Tradition: Mr. Campbell reports he has his own neyad; he did not elaborate further other than to note he and his are not in agreement on it. Plan: Will remain available for spiritual care as needed or requested. [phone] ([place]). Belia Crawley M.D. - 10/01/2020 7:41 AM CSTAssociated Order(s): IP CONSULT TO GASTROENTEROLOGY GASTROENTEROLOGY CONSULT SERVICE ?? REFERRING TEAM: Med 1 ?? REASON FOR CONSULT: h/o nec pancreatitis, worsening pain, stable imaging, stopped abx 1 week ago ?? HISTORY OF PRESENT ILLNESS Mr. Campbell is a 55-year-old gentleman with a medical history notable for reflux, recently diagnosed pancreatic adenocarcinoma, a common bile duct stricture status post biliary stent, post ERCP necrotizing pancreatitis with associated fluid collections which were recently infected, portal vein thrombosis on anticoagulation. He is admitted to the medicine service with new onset abdominal pain and elevated liver tests and bilirubin. On July 26, 2020, Mr. Campbell presented to the emergency department with abdominal pain, dark urine, diarrhea, and jaundice. Bilirubin is found to be 6.4 and his liver enzymes were elevated. A CT scan was done which showed a 2.6 cm ill-defined mass in the pancreatic head concerning for malignancy with bile duct dilation of 15 mm. On July 29 an ERCP was performed which showed a severe biliary stricture in the main bile duct. A sphincterotomy was performed and a single uncovered metal stent was placed in the common bile duct. An endoscopic ultrasound was then performed and the pancreatic headmass was biopsied with results returning showing adenocarcinoma. No lymph node involvement was seen.The day of the ERCP his bilirubin was 8.3, alkaline phosphatase 180, ALT 195, AST 74. Following the ERCP he developed diffuse abdominal pain and was found to have pancreatitis with a lipase of 1300. He was treated with IV fluids and pain medications. Due to worsening pain, a repeat CT was done which showed perinephric and ureteral stranding with no stone. On August 03 his total bilirubin was 14, alkaline phosphatase 195, ALT 56, AST 45. On August 04 his bilirubin was stable around 13.8, alkaline phosphatase 197, ALT 47, AST 49. A repeat ERCP was done on August 04 and showed stenosis at the biliary stent as well as sludge and stone which was dilated and we stented. Following this repeat ERCP, his pain improved and his bilirubin improved. He was then seen by Oncology who recommended 3-4 weeks of neoadjuvant chemotherapy, radiation, and then possible surgical resection. He was ultimately discharged from the hospital on August 05. At the time of discharge his total bilirubin was 11, alkaline phosphatase 190, ALT 44, AST 51. On August 11 he presented again to the emergency department with worsening abdominal pain, a fever and significant leukocytosis of 26. Blood work showed normal liver enzymes and improved bilirubin. A CT scan showed pancreatitis with concerns for fluid collection. No obstruction was seen of the stent. Nonocclusive segmental thrombosis was seen in the left portal vein and main portal vein which was new. Zosyn was started empirically. He was then transferred and admitted to [facility]. On admission, GI was consulted. They did not feel that his fevers were related to ascending cholangitis and did not recommend ERCP. Blood cultures were recommended and Zosyn was continued due to concern for possible infected thrombosis. Lovenox was recommended for the thrombosis. Blood cultures returned showing a Gram-positive bacteremia with Streptococcus species. Infectious Disease consulted and recommended 4-6 weeks of IV antibiotics. Mr. Campbell was discharged on August 15 with a plan for outpatient IV ceftriaxone with stop date of September 24. He saw surgery in the outpatient setting on August 19. At that time restaging imaging showed extensive in progressive pancreatitis changes with significant peripancreatic necrosis extending into theleft pericolic gutter and retroperitoneum. Unfortunately, given this, he was not felt to be a candidate for resection or chemotherapy at that time. A follow-up MRI/MRCP was recommended in 3 weeks. In late August he developed mild right low back pain and fevers. In this setting he contacted [facility] and requested blood draws which showed elevated ALT at 215, AST 200 and alkaline phosphatase at 554. Thiswas felt to be due to hepatic toxicity from the ceftriaxone. He was therefore transitioned ertapenemon September 09. MRCP was performed also on on September 09 and showed a slight decrease in the peripancreatic fluid collections as compared to prior imaging. The pancreatic duct was not noted to be dilated and the thrombus was noted to be stable. After transitioning to ertapenem, his symptoms continued to progress and on September 12 he presentedto the emergency department. He was tachycardic on presentation. A CT scan was obtained which showedcomplex necrotizing peripancreatic fluid collections with new gas foci highly suspicious for infection, persistent portal vein thrombosis, severe narrowing of the SMV, and unchanged malignancy. Blood work showed a leukocytosis of 12.2, a total bilirubin of 0.8, ALT of 63, alkaline phosphatase of 356, and a normal lipase. He was subsequently admitted for further management. On admission he was transition to Zosyn. Infectious Disease was consulted. His imaging was reviewed with the advanced proceduralists for discussion of possible EUS to drain the fluid collections. The decision was made to hold offon this for a few weeks to give the fluid collections time to organized. Blood cultures from admission did not return with any growth. He was ultimately discharged on September 15 on IV ertapenem. On September 23 he saw outpatient Oncology. They discussed possible initiation of chemotherapy once his infection was controlled. He also saw outpatient GI. CT scan from September 22 was reviewed with 1 of our advanced proceduralist. This showed interval increase in the malignancy. Extensive fluid collections had mild increase in volume along the left hemidiaphragm. Chronic occlusion of the splenic vein was noted and no metastatic disease was seen. It was felt the overall the peripancreatic fluid collections that improved and may not be infected as no gas was seen. It was felt to likely be beneficial to wait another week or 2 to consider cyst gastrostomy for further met maturation of the fluid collections. The decision was also made to stop antibiotics and monitor him. On September 30, he presented to his local emergency department for increased abdominal pain. This abdominal pain occurred suddenly and was severe. The pain then slowly improved but then returned for 2further episodes. A CT scan was done and showed continued pancreatic necrosis as well as a developing pancreatic abscess. The pain was noted to be in his left upper quadrant with radiation up to his chest, and was sharp and burning in quality. He denied any fevers. His white blood cell count on blood work was 10.5. He is admitted to the Medicine Service today on October 01 for ongoing management. Infectious Disease has been consulted. The outside CT was reviewed here and showed extensive fluid collections associated with necrotizing pancreatitis and known pancreatic malignancy which are similar to findings on September 22. A chronically occluded splenic vein is also noted with multiple upper abdominal collateral vessels. Marked narrowing is again noted of the superior mesenteric vein. Blood work shows stable anemia with hemoglobinof 11.1. Platelets are 426. He has a mild leukocytosis of 13.5. INR is normal at 1.4. Electrolytes are unrevealing. Total bilirubin is increased from 0.6-2.4. This is largely direct. ALT is increased from 68 to 354, AST increased from 37-387, alkaline phosphatase is increased from 371-499. Lipase is 12. Zosyn has been started. Objective: Vital Signs: BP 112/69 (BP Location: Right arm;Upper, Patient Position: Lying) Pulse 94 Temp 37 ??C (Oral) Resp 14 Ht 175.3 cm Wt 71.2 kg SpO2 96% BMI 23.18 kg/m? Physical Exam: Assessment/Plan: #1 Necrotizing post ERCP pancreatitis #2 Infected peripancreatic necrosis, recently stopped antibiotics #3 Portal vein and splenic vein thrombosis on enoxaparin #4 Pancreatic adenocarcinoma #5 Common bile duct stricture s/p biliary stent #6 Recent Strep anginosus bacteremia #7 Severe narrowing of the SMV #8 concern for possible infected portal vein thrombosis Mr. Campbell has suffered from significant complications to his health recently. In August of 2020 hewas diagnosed with local pancreatic adenocarcinoma and a common bile duct stricture which was treated with a metal stent. Unfortunately he then suffered from post ERCP necrotizing pancreatitis. He has been found to have both splenic vein and portal vein thrombosis and is on enoxaparin. At 1 point there was concern that the portal vein thrombosis may be infected and he did suffer from a strep anginosus bacteremia around that time as well. More recently in early September there was concern for infectionof his fluid collections associated with this necrotizing pancreatitis. Since September 23 he has been off of antibiotics. He is currently admitted with sudden onset of severe abdominal pain that has been episodic in nature. Blood work on admission shows significant worsening of his AST and ALT as well as an increase of bilirubin from 0.6 to 2.4. Previously, his fluid collections have not been intervened on as they have not yet been appropriately mature. I am concerned that with his increasing bilirubin, AST, ALT as well as alkaline phosphatase that he has possible obstruction of his stent. This is also consistent with his intermittent pain. I reviewedhis imaging with our advanced proceduralists who also note some air in the stent as well as materialupstream that may suggest blockage of the stent. We would recommend an ERCP, and currently there is availability on the ERCP scheduled for later today. Please ensure that Mr. Campbell is NPO, and please place an ERCP order as soon as possible (I spoke with team about this this morning). Recommendations 1. Please order ERCP 2. Please keep NPO This case has been discussed with Dr. Gottlieb. We will continue to follow. Please page [phone] with questions. SPRING SETTER Associated attestation - Mary Gottlieb M.D. - 10/01/2020 4:54 PM HAIRSPRING SETTER I saw and evaluated the patient, participating in the patel portions of the service. I reviewed Dr. Taylor's note, and agree with the findings and plan. Tana Mejia M.D. - 10/01/2020 6:53 AM CSTAssociated Order(s): IP CONSULT TO INFECTIOUS DISEASES Infectious Diseases [facility] Consulting Service Consult Note SUBJECTIVE REASON FOR CONSULT We are seeing Mr. Campbell at the request of Aramis Stevens M.D* to give further recommendations for evaluation and management of h/o nec pancreatitis, worsening pain, stable imaging, stopped ertapenem 1 week ago. HISTORY OF PRESENT ILLNESS 07/26/20: Admitted to OSH w/ abdominal pain and jaundice. CT scan showed a 2.6 cm ill-defined mass in the pancreatic head concerning for malignancy with bile duct dilation of 15 mm. 07/29: Underwent ERCP and stenting to the CBD. EUS w/ biopsy identifies pancreatic adenocarcinoma. 07/30: Developed post-ERCP pancreatitis 08/04: Repeat ERCP w/ stenosis of biliary stent with stone. Stone removed and stent dilated. 08/11 - 08/15: Presented to OSH w/ fever and chills and transferred to [facility]. Found to have Strep anginosis BSI and portal vein thrombosis. Started on CTX with plan for 6 week course due to possible infected thrombus. 09/09: CTX switched to ertapenem due to elevation in LFTs. 09/12 - 09/15/20: Readmitted w/ abdominal pain and fevers/chills. CT showed new foci of gas within the necrotizing peripancreatic fluid collections highly suspicious for infection. Restarted on Zosyn and then switched back to ertapenem on discharge. 09/23: Outpt ID appointment. CT showed resolution of gas w/in periphancreatic fluid collections. Antibiotics discontinued. PICC line pulled. 09/30 - present: Patient had three episodes of severe post-prandial abdominal pain. No fevers or chills (pt checking temperature QID at home). No nausea/vomiting/diarrhea. Prior to initial episode of pain, patient had been feeling well with good appetite. Presented to local ED where CT showed extensive fluid collections. Labs notable for worsening leukocytosis and elevated LFTs. Patient was transferred to [facility]. REVIEW OF SYSTEMS A comprehensive review of systems was performed and was negative other than listed in HPI. OBJECTIVE PHYSICAL EXAMINATION BP 112/69 (BP Location: Right arm;Upper, Patient Position: Lying) Pulse 94 Temp 37 ??C (Oral) Resp 14 Ht 175.3 cm Wt 71.2 kg SpO2 96% BMI 23.18 kg/m?? General: Laying in bed in no acute distress HEENT: PERRL, anicteric sclera Heart: RRR, no murmur Lungs: Normal respiratory effort on room air, clear to anterior auscultation Abdomen: Soft, nontender Extremities: No edema Skin: No rash or lesions DIAGNOSTICS: I have reviewed diagnostics. ASSESSMENT / PLAN Mr. Campbell is a 55 yo man w/ borderline resectable pancreatic adenocarcinoma c/b necrotizing pancreatitis who was readmitted with severe episodic post-prandial abdominal pain. No systemic signs of infection. Patient does have mild leukocytosis, but this is similar to what is has been for the past 3 months. He has completed 6 weeks of IV antibiotics, and it is unclear if fluid collections are still infected. Recommend repeating blood cultures and continuing Zosyn while GI isdeciding on possible procedures. #1 Abscess Pancreas (HCC) RECOMMENDATIONS: 1. Check blood cultures 2. Continue Zosyn 3. Low suspicion for infection, will plan to discontinue antibiotics if cultures are negative We will follow along closely. Please page the [facility] service pager at [phone] withquestions. Thank you for the consultation. SPRING SETTER documented in this encounter Nursing Notes Marlyn Lira R.N. - 10/02/2020 12:00 PM CST Shift Goals: Clinical Goals for the Shift: Patient will have pain well controlled Identify possible barriers to meeting goals/advancing plan of care: No barriers End of Shift Summary: Patient having no pain. Discharging home with . All education given and patient verbalizes understanding. PIV removed and VS stable. SPRING SETTER documented in this encounter Miscellaneous Notes Hospital Course - Adam Novoa M.D. - 10/02/2020 7:32 AM CST Mr. Adam Campbell is a 55 y.o. male w/ a h/o pancreatic adenocarcinoma, post ERCP pancreatitiswith necrotizing pancreatitis who presents with worsening abdominal pain and pancreatic abscess. Hispancreatic adenocarcinoma was diagnosed in 07/2020 and has not undergone any chemo radiation or surgery. 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 He also had strep anginosis bloodstream infection in August which was related to his pancreatitis. He was evaluated by ERCP/EUS specialists??for potential drainage of these peripancreatic fluid collections. ??However, it was felt that the loculated fluid collections were not mature enough forcystgastrostomy and drainage. He last saw his GI doctor on 09/23 at which point he had his CT imaging reviewed and demonstrated the peripancreatic fluid collections had improved and may no longer be infected thus his ertapenem was discontinued last week. Patient was seen 09/30 in his local emergency department in [place], [place] with worsening left-sided abdominal pain. A CT scan there showed continued necrosis of his pancreas and stable pancreatic cancer. He had no fever and his white count was 10.5. ?? In describing the pain, the patient states that he has never had pain like this before. He 1st had the pain at 3:00 a.m. in the morning yesterday which he described as a intense aching throughout his entire left abdomen and into his chest. He states that the pain feels like a full gas feeling that youcould pop and feels like someone is sitting on his abdomen and chest. The pain eventually went away after he took his normal pain medication at home but recurred each time that he attempted to eat throughout the day, occurring 1-2 hours after eating. He has not had any vomiting but at times when thepain comes on he feels nauseous and feels like he could vomit if he tried. Upon arrival, his pain was well controlled and required 1 dose of Dilaudid. EKG and troponin were negative and were drawn due to him describing his pain going to his chest. His labs were remarkable forelevated bilirubin at 2.4 and direct at 2.0. His transaminases and alk-phos were also significantly more elevated compared to previous labs. GI was consulted and decision was made to undergo ERCP whichpatient underwent on 10/01. Fortunately, his previous stents were patent however there is a localized biliary stricture in the common bile duct which received treatment with a bare metal stent. Patient's bilirubin normalized by 10/02 with transaminases trending downward. He was able tolerate a normal diet without any recurrence of his pain. His cultures were negative any not have any elevated white count or fever during his stay thus his Zosyn was discontinued. He was provided a refill on his daily pain medications which he takes for cancer pain. SPRING SETTER documented in this encounter Plan of Treatment Upcoming Encounters Date Type Specialty Care Team Description 06/22/2022 Lab Laboratory Medicine Maria Del Rosario Gomez AP RN, C.N.P., M.S. [address] [place] [address] [phone] (Wo rk) 06/22/2022 Infusion Oncology [place] Del Rosario pierre APRN, C.N .P., M.S. [address] [place] [address] [phone] (Wo rk) 06/29/2022 Lab Laboratory Medicine Maria Del Rosario Gomez AP RN, C.N.P., M.S. [address] [place] [address] [phone] (Wo rk) 06/29/2022 Infusion Oncology Maria Del Rosario Gomez APRN, C.N .P., M.S. [address] [place] [address] [phone] (Wo rk) documented as of this encounter Procedures Procedure Name Priority Date/Time Associated Comments Diagnosis HEPATIC FUNCTION Routine 10/02/2020 6:17 Results for PANEL, S AM HAIRSPRING SETTER this procedure are in the results section. CBC WITH Routine 10/02/2020 6:17 Results for DIFFERENTIAL, B AM HAIRSPRING SETTER this procedu re are in the results section. BASIC METABOLIC Routine 10/02/2020 6:17 Results f or PANEL, S/P AM HAIRSPRING SETTER this procedure are in the results section. FL FLUORO LESS THAN 1 Routine 10/01/2020 3:29 Res ults for HOUR PM HAIRSPRING SETTER this procedure are in the results section. ADULT OXYGEN THERAPY Routine 10/01/2020 3:16 PM HAIRSPRING SETTER ADULT OXYGEN THERAPY Routine 10/01/2020 3:16 PM HAIRSPRING SETTER ADULT OXYGEN THERAPY Routine 10/01/2020 3:16 PM HAIRSPRING SETTER ERCP Routine 10/01/2020 2:49 Results for PM HAIRSPRING SETTER this procedure are in the results section. ERCP Routine 10/01/2020 2:49 PM HAIRSPRING SETTER BACTERIA / BRIGID Routine 10/01/2020 11:48 Resul ts for CULTURE, BLOOD AM HAIRSPRING SETTER this procedur e are in the results section. BACTERIA / BRIGID Routine 10/01/2020 11:32 Resul ts for CULTURE, BLOOD AM HAIRSPRING SETTER this procedur e are in the results section. US GALLBLADDER AND OR RAD - Routine 10/01/2020 10:07 R esults for BILIARY DUCTS (most inpatients AM HAIRSPRING SETTER this proce dure and all are in the outpatients) results section. TROPONIN T, BASELINE, STAT 10/01/2020 2:22 Res ults for 5TH GEN, P AM HAIRSPRING SETTER this procedure are in the results section. HEPATIC FUNCTION STAT 10/01/2020 2:22 Results for PANEL, S AM HAIRSPRING SETTER this procedure are in the results section. PROTHROMBIN TIME STAT 10/01/2020 2:22 Results for (PT), P AM HAIRSPRING SETTER this procedure are in the results section. CBC WITH STAT 10/01/2020 2:22 Results for DIFFERENTIAL, B AM HAIRSPRING SETTER this procedu re are in the results section. LIPASE, S/P STAT 10/01/2020 2:22 Results for AM HAIRSPRING SETTER this procedure are in the results section. BASIC METABOLIC STAT 10/01/2020 2:22 Results f or PANEL, S/P AM HAIRSPRING SETTER this procedure are in the results section. ECG STAT 10/01/2020 1:56 Results for AM HAIRSPRING SETTER this procedure are in the results section. IFLU A, B, SARS Routine 10/01/2020 1:56 Results f or COV-2, PCR, RAPID,V AM HAIRSPRING SETTER this pro cedure are in the results section. INTERPRETATION OF RAD - Routine 10/01/2020 1:10 Result s for OUTSIDE CT ABDOMEN (most inpatients AM HAIRSPRING SETTER this procedure AND OR PELVIS and all are in the outpatients) results section. documented in this encounter Results Basic Metabolic Panel (10/02/2020 6:17 AM HAIRSPRING SETTER) P athologist Signature Potassium, S 4.8 3.6 - 5.2 10/02/2020 DTL mmol/L 7:19 AM HAIRSPRING SETTER Sodium, S 137 135 - 145 10/02/2020 DTL mmol/L 7:19 AM HAIRSPRING SETTER Chloride, S 102 98 - 107 10/02/2020 DTL mmol/L 7:19 AM HAIRSPRING SETTER Bicarbonate, S 27 22 - 29 10/02/2020 DTL mmol/L 7:19 AM HAIRSPRING SETTER Anion Gap 8 7 - 15 10/02/2020 DTL 7:19 AM HAIRSPRING SETTER BUN (Blood Urea 12 8 - 24 10/02/2020 DTL Nitrogen), S mg/dL 7:19 AM HAIRSPRING SETTER Creatinine 0.93 0.74 - 10/02/2020 DTL 1.35 mg/dL 7:19 AM HAIRSPRING SETTER eGFR-Non >90 >=60 10/02/2020 DTL Black/ mL/min/BSA 7:19 AM HAIRSPRING SETTER [place] Comment: ----ADDITIONAL INFORMATION---- Estimated GFR calculated using the 2009 CKD_EPI creatinine equation. eGFR-Black/ >90 >=60 mL/min/BSA 2020 7:19 AM HAIRSPRING SETTER DTL Comment: ----ADDITIONAL INFORMATION---- Estimated GFR calculated using the 2009 CKD_EPI creatinine equation. Calcium, Total, S 8.8 8.6 - 10.0 mg/dL 10/02/2020 7:19 AM HAIRSPRING SETTER DTL Glucose, S 116 70 - 140 mg/dL 10/02/2020 7:19 AM HAIRSPRING SETTER D TL Specimen Anatomical Collection Method Collection Time Receive d Time (Source) Location / / Volume Laterality Blood (Blood, 10/02/2020 6:17 AM 10/02/19 6:40 Venous) HAIRSPRING SETTER AM HAIRSPRING SETTER Stephanie Tapia M.D. LAB BLOOD ADD-ON Performing Organization Address City/State/ZIP Code Phon e Number [facility] - [address] [place] [address] [facility] [place] [place] [address] Laboratories-[facility] [address] [facility] (ABNORMAL) CBC with Differential, Blood (10/02/2020 6:17 AM HAIRSPRING SETTER) [facility] gist Method Time Signature Hemoglobin 10.5 (L) 13.2 - 10/02/2020 DTL 16.6 g/dL 6:50 AM HAIRSPRING SETTER Hematocrit 33.7 (L) 38.3 - 10/02/2020 DTL 48.6 % 6:50 AM HAIRSPRING SETTER Erythrocytes 4.18 (L) 4.35 - 10/02/2020 DTL 5.65 6:50 AM HAIRSPRING SETTER x10(12)/L MCV 80.6 78.2 - 10/02/2020 DTL 97.9 fL 6:50 AM HAIRSPRING SETTER RBC Distrib Width 14.1 11.8 - 10/02/2020 DTL 14.5 % 6:50 AM HAIRSPRING SETTER Platelet Count 369 (H) 135 - 317 10/02/2020 DTL x10(9)/L 6:50 AM HAIRSPRING SETTER Leukocytes 10.1 (H) 3.4 - 9.6 10/02/2020 DTL x10(9)/L 6:50 AM HAIRSPRING SETTER Neutrophils 8.40 (H) 1.56 - 10/02/2020 DTL 6.45 6:50 AM HAIRSPRING SETTER x10(9)/L Lymphocytes 0.84 (L) 0.95 - 10/02/2020 DTL 3.07 6:50 AM HAIRSPRING SETTER x10(9)/L Monocytes 0.81 0.26 - 10/02/2020 DTL 0.81 6:50 AM HAIRSPRING SETTER x10(9)/L Eosinophils 0.03 0.03 - 10/02/2020 DTL 0.48 6:50 AM HAIRSPRING SETTER x10(9)/L Basophils 0.03 0.01 - 10/02/2020 DTL 0.08 6:50 AM HAIRSPRING SETTER x10(9)/L Specimen Anatomical Collection Method Collection Time Receive d Time (Source) Location / / Volume Laterality Blood (Blood, 10/02/2020 6:17 AM 10/02/19 6:41 Venous) HAIRSPRING SETTER AM HAIRSPRING SETTER Stephanie Tapia M.D. LAB BLOOD ADD-ON Performing Organization Address City/State/ZIP Code Phon e Number [facility] - [address] [place], [place] [address] [facility] [place] [place] [address] Laboratories-[facility] [address] (ABNORMAL) Hepatic Function Panel (10/02/2020 6:17 AM HAIRSPRING SETTER) Patholo gist Method Time Signature Bilirubin, Total, S 0.8 <=1.2 10/02/2020 DTL mg/dL 7:19 AM HAIRSPRING SETTER Bilirubin, Direct, S 0.5 (H) 0.0 - 0.3 10/02/2020 DTL mg/dL 7:19 AM HAIRSPRING SETTER Aspartate 94 (H) 8 - 48 10/02/2020 DTL Aminotransferase U/L 7:19 AM HAIRSPRING SETTER (AST), S Alanine 207 (H) 7 - 55 10/02/2020 DTL Aminotransferase U/L 7:19 AM HAIRSPRING SETTER (ALT), S Alkaline 417 (H) 40 - 129 10/02/2020 DTL Phosphatase, S U/L 7:19 AM HAIRSPRING SETTER Albumin, S 2.9 (L) 3.5 - 5.0 10/02/2020 DTL g/dL 7:19 AM HAIRSPRING SETTER Protein, Total, S 6.5 6.3 - 7.9 10/02/2020 DTL g/dL 7:19 AM HAIRSPRING SETTER Specimen Anatomical Collection Method Collection Time Receive d Time (Source) Location / / Volume Laterality Blood (Blood, 10/02/2020 6:17 AM 10/02/19 6:40 Venous) HAIRSPRING SETTER AM HAIRSPRING SETTER Stephanie Tapia M.D. LAB BLOOD ADD-ON Performing Organization Address City/[facility]/ZIP [facility] Phon e Number [facility] - [address] [place], [place] [address] [facility] [place] [address] Laboratories-[facility] [address] [place] Fluoro Less Than 1 Hour (10/01/2020 3:29 PM HAIRSPRING SETTER) Specimen (Source) Anatomical Location Collection Method / Collectio n Time Received Time / Laterality Volume Narrative ERCP LOS RST - 10/01/2020 3:33 PM HAIRSPRING SETTER This exam does not require a radiologist review or interpretation. Please refer to the patient's medical record on this date for clinical details. Stephanie Tapia M.D. IMG FLUOROSCOPY PROCEDURES Performing Organization Address [facility] Phon e Number ERCP LOS RST ERCP (10/01/2020 2:49 PM HAIRSPRING SETTER) Specimen (Source) Anatomical Collection Method Collection Time Re ceived Time Location / / Volume Laterality 10/01/2020 2:49 PM HAIRSPRING SETTER Impressions [employer] - 10/01/2020 3:45 PM HAIRSPRING SETTER Post-op Diagnoses: ? - Prior biliary sphincterotomy ap peared open. ? - Two coaxially nested metal sten ts from the common bile duct were seen ? in the major papilla, and the dis aguila lumen was visibly patent. ? - A single tight localized biliar y stricture was found in the common ? bile duct as described, consisten t with tissue ingrowth. ? - The biliary tree was swept and nothing was found. ? - The patient is not amenable to covered metallic biliary stent ? placement for anatomic reasons de tailed. One 10 x 40 mm Wallflex bare ? metal biliary stent was placed in to the common bile duct. Contrast ? drainage was excellent. Narrative [employer] - 10/01/2020 3:45 PM HAIRSPRING SETTER [facility] GI Patient Name: Adam Campbell Date of : 1965 Age: 55 Gender: Male Procedure Date: 10/01/2020 Procedure: ? ERCP, ba lloon sweep, placement of biliary stent Providers: ? John trejo MD Referring Provider: ?Stephanieyeison Lopez son Pre-op Diagnoses: ?Bile duct s tricture, Adenocarcinoma of the head of ? kaleb smith Recommendation: ? - Return patient to [facility] for [facility] care. Findings: ? A biliary stent was visible on th e software release manager film. The esophagus was ? successfully intubated under dire ct vision without detailed examination ? of the pharynx, larynx, and assoc iated structures, and upper GI tract. ? The upper GI tract was grossly no rmal. A biliary sphincterotomy had been ? performed. The sphincterotomy colette eared open. Two coaxially nested bare ? metal biliary stents originating in the common bile duct were emerging ? from the major papilla. The dista l lumen was patent. A 0.035 inch angled ? Glidewire was passed into the jennifer iary tree in a looped fashion to avoid ? stent wire interstices. The 8.5 m m balloon was passed over the guidewire ? and the bile duct was then deeply cannulated. Contrast was injected. I ? personally interpreted the bile d uct images. There was brisk flow of ? contrast through the ducts. Image quality was excellent. Contrast ? extended to the hepatic ducts. Op acification of the entire biliary tree ? was successful. The common bile d uct contained a single localized ? stenosis 8 mm in length approxima tely 2/[address] the existing CBD ? stents consistent with a fairly t ight area of tissue ingrowth. To ? discover objects, the biliary cherise e was swept with an 8.5 mm balloon ? starting at the left main hepatic duct and right main hepatic duct. ? Nothing was found, but substantia l resistance to balloon passage was ? encountered at the level of the s tricture. It was very clear on ? fluoroscopic spot images that the proximal end of the stricture landed ? right at the cystic duct insertio n, so the patient was not amenable to ? placement of a covered metal sten t. One 10 mm by 4 cm bare metal ? Wallflex biliary stent was placed coaxially into the common bile duct. ? Bile flowed through the stent. Th e stent was in good position. Procedural Details: ? The [...] tolerated the procedure well. Estimated Blood Loss: ?Estimated blo od loss: none. Complications: ? No immedia te complications. Sedation: ? Anesthesia was administered by an anesthesia professional. The following ? parameters were monitored: oxygen saturation, heart rate, blood ? pressure, respiratory rate, EKG, adequacy of pulmonary ventilation, and ? response to care. Attending Participation: I personally pe rformed the entire procedure. John Tuttle MD 10/01/2020 3:45:18 PM This report has been signed electronical ly. Number of Addenda: 0 Stephanie Tapia M.D. GI PROCEDURE ORDERABLES Performing Organization Address City/[facility] Phon e Number [facility] Bacteria / Brigid Culture, Blood #1 (10/01/2020 11:48 AM HAIRSPRING SETTER) [facility] gist Method Time Signature Bacteria/Jane No growth 10/06/2020 DTL da Culture, after 5 1:02 PM HAIRSPRING SETTER Blood days of incubation. Specimen (Source) Anatomical Collection Method Collection Time Re ceived Time Location / / Volume Laterality Blood (Blood, 10/01/2020 11:48 10/01/2020 Peripheral Draw) AM HAIRSPRING SETTER 12:25 PM CS T Comment: Specimen Source Site: Blood Narrative [facility] - [facility] - 10/06/2020 1:02 PM HAIRSPRING SETTER Specimen Information: Specimen ID: [id number] Specimen Source: Blood, Peripheral Draw Specimen Comment: Specimen Source Site: Blood Specimen Collection Start Date: 10/01/19 11:49 AM Specimen Received Date: 10/01/2020 12:25 PM Specimen ID: [id number] Specimen Source: Blood, Peripheral Draw Specimen Comment: Specimen Source Site: Blood Specimen Collection Start Date: 10/01/19 11:49 AM Specimen Received Date: 10/01/2020 12:25 PM Specimen ID: [id number] Specimen Source: Blood, Peripheral Draw Specimen Comment: Specimen Source Site: Blood Specimen Collection Start Date: 10/01/19 11:48 AM Specimen Received Date: 10/01/2020 12:25 PM Stephanie Tapia M.D. LAB MICROBIOLOGY - GENERAL O RDERABLES Performing Organization Address City/[facility]/ZIP Code Phon e Number [facility] - [address] [place], [place] [address] [facility] [place] [place] [address] Laboratories-[facility] [address] Bacteria / Brigid Culture, Blood #2 (10/01/2020 11:32 AM HAIRSPRING SETTER) [facility] Method Time Signature Bacteria/Jane No growth 10/06/2020 DT da Culture, after 5 1:02 PM HAIRSPRING SETTER Blood days of incubation. Specimen (Source) Anatomical Collection Method Collection Time Re ceived Time Location / / Volume Laterality Blood (Blood, 10/01/2020 11:32 10/01/2020 Peripheral Draw) AM HAIRSPRING SETTER 12:24 PM CS T Comment: Specimen Source Site: Blood Narrative [facility] - [facility] - 10/06/2020 1:02 PM HAIRSPRING SETTER Specimen Information: Specimen ID: [id number] Specimen Source: Blood, Peripheral Draw Specimen Comment: Specimen Source Site: Blood Specimen Collection Start Date: 10/01/19 11:32 AM Specimen Received Date: 10/01/2020 12:24 PM Specimen ID: [id number] Specimen Source: Blood, Peripheral Draw Specimen Comment: Specimen Source Site: Blood Specimen Collection Start Date: 10/01/19 11:32 AM Specimen Received Date: 10/01/2020 12:24 PM Specimen ID: [id number] Specimen Source: Blood, Peripheral Draw Specimen Comment: Specimen Source Site: Blood Specimen Collection Start Date: 10/01/19 11:32 AM Specimen Received Date: 10/01/2020 12:24 PM Stephanie Tapia M.D. LAB MICROBIOLOGY - GENERAL O RDERABLES Performing Organization Address City/State/ZIP Code Phon e Number [facility] - [facility] [address] [place], [place] [address] [place] [address] Laboratories-[facility] [address] US Gallbladder and or Biliary Ducts (10/01/2020 10:07 AM HAIRSPRING SETTER) Anatomical Region Laterality Modality Abdomen, Ultrasound RST LOS, Ultrasound ARZ LOS, Ultrasound FLA N/A Ultrasound LOS Specimen (Source) Anatomical Collection Method Collection Time Re ceived Time Location / / Volume Laterality 10/01/2020 10:08 AM HAIRSPRING SETTER Impressions 10/01/2020 10:15 AM HAIRSPRING SETTER Air in the common duct, gallbladder and intrahepatic ducts suggests that the metallic common duct stent is p atent. No evidence for cholelithiasis. Narrative 10/01/2020 10:15 AM HAIRSPRING SETTER EXAM: US GALLBLADDER AND OR BILIARY DUCTS COMPARISON: CT 09/30/2020 FINDINGS: Gallbladder: Negative for sludge or ston es. There is air in the gallbladder, secondary to the biliary stent. Gallblad kinsey wall thickness at the upper limit of normal. No pericholecystic fluid collect ions. Intrahepatic ducts: Pneumobilia. No dila sally ducts identified. Common duct: Poorly visualized because o f pneumobilia. There is a metallic stent in the distal common duct. Aorta: Normal caliber. Other: Pancreas poorly visualized becaus e of bowel gas. Doppler examination of the portal and he patic veins was not performed. Procedure Note Trell Heller M.B., Ch.B. - 10/01/2020 EXAM: US GALLBLADDER AND OR BILIARY DUCT S COMPARISON: CT 09/30/2020 FINDINGS: Gallbladder: Negative for sludge or ston es. There is air in the gallbladder, secondary to the biliary stent. Gallblad kinsey wall thickness at the upper limit of normal. No pericholecystic fluid collect ions. Intrahepatic ducts: Pneumobilia. No dila sally ducts identified. Common duct: Poorly visualized because o f pneumobilia. There is a metallic stent in the distal common duct. Aorta: Normal caliber. Other: Pancreas poorly visualized becaus e of bowel gas. Doppler examination of the portal and he patic veins was not performed. IMPRESSION: Air in the common duct, gallbladder and intrahepatic ducts suggests that the metallic common duct stent is p atent. No evidence for cholelithiasis. Adam Novoa M.D. IMG US PROCEDURES Troponin T, Baseline, 5th gen (10/01/2020 2:22 AM HAIRSPRING SETTER) P athologist Signature Troponin T, 8 <=15 ng/L 10/01/2020 STMA Baseline, 5th 2:54 AM HAIRSPRING SETTER gen Specimen Anatomical Collection Method Collection Time Receive d Time (Source) Location / / Volume Laterality Blood (Blood, 10/01/2020 2:22 AM 10/01/19 2:28 Venous) HAIRSPRING SETTER AM HAIRSPRING SETTER Adam Novoa M.D. LAB BLOOD TROPONIN Performing Organization Address City/State/ZIP Code Phon e Number [facility] - [address] [place] [phone] [facility] [place] [address] Laboratories-[address] (ABNORMAL) Lipase (10/01/2020 2:22 AM HAIRSPRING SETTER) P athologist Signature Lipase, S 12 (L) 13 - 60 U/L 10/01/2020 DTL 3:11 AM HAIRSPRING SETTER Specimen Anatomical Collection Method Collection Time Receive d Time (Source) Location / / Volume Laterality Blood (Blood, 10/01/2020 2:22 AM 10/01/19 2:44 Venous) HAIRSPRING SETTER AM HAIRSPRING SETTER Adam Novoa M.D. LAB BLOOD ADD-ON Performing Organization Address City/[facility] Code Phon e Number [facility] - [address] (ABNORMAL) Prothrombin Time (PT) (10/01/2020 2:22 AM HAIRSPRING SETTER) [facility] Method Time Signature Prothrombin 15.7 (H) 9.4 - 12.5 10/01/2020 DTL Time, P sec 3:28 AM HAIRSPRING SETTER INR 1.4 0.9 - 1.1 10/01/2020 DTL 3:28 AM HAIRSPRING SETTER Comment: ----ADDITIONAL INFORMATION---- Standard intensity warfarin therapeutic range: 2.0 to 3.0 ?? High intensity warfarin therapeutic rang e: 2.5 to 3.5 Specimen Anatomical Collection Method Collection Time Receive d Time (Source) Location / / Volume Laterality Blood (Blood, 10/01/2020 2:22 AM 10/01/19 2:44 Venous) HAIRSPRING SETTER AM HAIRSPRING SETTER Adam Novoa M.D. LAB BLOOD ADD-ON Performing Organization Address City/State/ZIP Code Phon e Number [facility] - [address] (ABNORMAL) Hepatic Function Panel (10/01/2020 2:22 AM HAIRSPRING SETTER) [facility] Method Time Signature Bilirubin, Total, S 2.4 (H) <=1.2 10/01/2020 DTL mg/dL 3:13 AM HAIRSPRING SETTER Bilirubin, Direct, S 2.0 (H) 0.0 - 0.3 10/01/2020 DTL mg/dL 3:13 AM HAIRSPRING SETTER Aspartate 387 (H) 8 - 48 10/01/2020 DTL Aminotransferase U/L 3:13 AM HAIRSPRING SETTER (AST), S Alanine 354 (H) 7 - 55 10/01/2020 DTL Aminotransferase U/L 3:13 AM HAIRSPRING SETTER (ALT), S Alkaline 499 (H) 40 - 129 10/01/2020 DTL Phosphatase, S U/L 3:13 AM HAIRSPRING SETTER Albumin, S 3.3 (L) 3.5 - 5.0 10/01/2020 DTL g/dL 3:13 AM HAIRSPRING SETTER Protein, Total, S 7.0 6.3 - 7.9 10/01/2020 DTL g/dL 3:13 AM HAIRSPRING SETTER Specimen Anatomical Collection Method Collection Time Receive d Time (Source) Location / / Volume Laterality Blood (Blood, 10/01/2020 2:22 AM 10/01/19 2:44 Venous) HAIRSPRING SETTER AM HAIRSPRING SETTER Adam Novoa M.D. LAB BLOOD ADD-ON Performing Organization Address City/State/ZIP Code Phon e Number [facility] - [address] [place] [address] [phone] [facility] [place] [place] [address] [facility] 200 [facility] Basic Metabolic Panel (10/01/2020 2:22 AM HAIRSPRING SETTER) P athologist Signature Potassium, S 4.5 3.6 - 5.2 10/01/2020 DTL mmol/L 3:13 AM HAIRSPRING SETTER Sodium, S 135 135 - 145 10/01/2020 DTL mmol/L 3:13 AM HAIRSPRING SETTER Chloride, S 98 98 - 107 10/01/2020 DTL mmol/L 3:13 AM HAIRSPRING SETTER Bicarbonate, S 25 22 - 29 10/01/2020 DTL mmol/L 3:13 AM HAIRSPRING SETTER Anion Gap 12 7 - 15 10/01/2020 DTL 3:13 AM HAIRSPRING SETTER BUN (Blood Urea 10 8 - 24 10/01/2020 DTL Nitrogen), S mg/dL 3:13 AM HAIRSPRING SETTER Creatinine 0.84 0.74 - 10/01/2020 DTL 1.35 mg/dL 3:13 AM HAIRSPRING SETTER eGFR-Non >90 >=60 10/01/2020 DTL Black/ mL/min/BSA 3:13 AM HAIRSPRING SETTER Norwegian Comment: ----ADDITIONAL INFORMATION---- Estimated GFR calculated using the 2009 CKD_EPI creatinine equation. eGFR-Black/ >90 >=60 mL/min/BSA 2020 3:13 AM HAIRSPRING SETTER DTL Comment: ----ADDITIONAL INFORMATION---- Estimated GFR calculated using the 2009 CKD_EPI creatinine equation. Calcium, Total, S 9.0 8.6 - 10.0 mg/dL 10/01/2020 3:13 AM HAIRSPRING SETTER DTL Glucose, S 108 70 - 140 mg/dL 10/01/2020 3:13 AM HAIRSPRING SETTER D TL Specimen Anatomical Collection Method Collection Time Receive d Time (Source) Location / / Volume Laterality Blood (Blood, 10/01/2020 2:22 AM 10/01/19 2:44 Venous) HAIRSPRING SETTER AM HAIRSPRING SETTER Adam Novoa M.D. LAB BLOOD ADD-ON Performing Organization Address City/State/ZIP Code Phon e Number [facility] - [address] [place], [place] [address] [facility] [place] [address] [facility] [address] (ABNORMAL) CBC with Differential, Blood (10/01/2020 2:22 AM HAIRSPRING SETTER) [facility] gist Method Time Signature Hemoglobin 11.1 (L) 13.2 - 10/01/2020 DTL 16.6 g/dL 2:52 AM HAIRSPRING SETTER Hematocrit 34.8 (L) 38.3 - 10/01/2020 DTL 48.6 % 2:52 AM HAIRSPRING SETTER Erythrocytes 4.37 4.35 - 10/01/2020 DTL 5.65 2:52 AM HAIRSPRING SETTER x10(12)/L MCV 79.6 78.2 - 10/01/2020 DTL 97.9 fL 2:52 AM HAIRSPRING SETTER RBC Distrib Width 14.0 11.8 - 10/01/2020 DTL 14.5 % 2:52 AM HAIRSPRING SETTER Platelet Count 426 (H) 135 - 317 10/01/2020 DTL x10(9)/L 2:52 AM HAIRSPRING SETTER Leukocytes 13.5 (H) 3.4 - 9.6 10/01/2020 DTL x10(9)/L 2:52 AM HAIRSPRING SETTER Neutrophils 11.47 (H) 1.56 - 10/01/2020 DTL 6.45 2:52 AM HAIRSPRING SETTER x10(9)/L Lymphocytes 0.83 (L) 0.95 - 10/01/2020 DTL 3.07 2:52 AM HAIRSPRING SETTER x10(9)/L Monocytes 1.10 (H) 0.26 - 10/01/2020 DTL 0.81 2:52 AM HAIRSPRING SETTER x10(9)/L Eosinophils 0.05 0.03 - 10/01/2020 DTL 0.48 2:52 AM HAIRSPRING SETTER x10(9)/L Basophils 0.04 0.01 - 10/01/2020 DTL 0.08 2:52 AM HAIRSPRING SETTER x10(9)/L Specimen Anatomical Collection Method Collection Time Receive d Time (Source) Location / / Volume Laterality Blood (Blood, 10/01/2020 2:22 AM 10/01/19 2:44 Venous) HAIRSPRING SETTER AM HAIRSPRING SETTER Adam Novoa M.D. LAB BLOOD ADD-ON Performing Organization Address City/State/ZIP Code Phon e Number [facility] - [address] [place], [place] [address] [facility] [place] [address] [facility] 200 [facility] ECG 12 Lead (10/01/2020 1:56 AM HAIRSPRING SETTER) P athologist Signature Ventricular Rate 98 BPM MUSE ECG/Min RI Interval 140 ms MUSE QRSD Interval 100 ms MUSE QT Interval 352 ms MUSE QTC Interval 449 ms MUSE P Norris 29 degrees MUSE R Norris 32 degrees MUSE T Wave Norris 7 degrees MUSE Specimen Anatomical Collection Method Collection Time Receive d Time (Source) Location / / Volume Laterality 10/01/2020 1:56 AM 6:36 HAIRSPRING SETTER AM HAIRSPRING SETTER Impressions MUSE - 10/01/2020 6:36 AM HAIRSPRING SETTER Normal sinus rhythm Nonspecific T wave abnormality When compared with ECG of 12-AUG-2020 09 :51, No significant change was found Reviewed by HAROON Romo Narrative This result has an attachment that is no t available. Procedure Note Vladislav Calderón M.D. - 10/01/2020Formatti ng of this note might be different from the original. IMPRESSION: Normal sinus rhythm Nonspecific T wave abnormality When compared with ECG of 12-AUG-2020 09 :51, No significant change was found Reviewed by HAROON Romo Adam Novoa M.D. ECG ORDERABLES Performing Organization Address City/State/ZIP Code Phon e Number MUSE MUSE NA Influenza A/B, SARS CoV-2, PCR, Rapid, Varies (10/01/2020 1:56 AM HAIRSPRING SETTER) [facility] Method Time Signature Influenza A, Negative Negative 10/01/2020 STMA PCR, Rapid, V 2:27 AM HAIRSPRING SETTER Influenza B, Negative Negative 10/01/2020 STMA PCR, Rapid, V 2:27 AM HAIRSPRING SETTER SARS CoV-2, Undetected Undetected 10/01/2020 STMA PCR, Rapid, V 2:27 AM HAIRSPRING SETTER Comment: ----ADDITIONAL INFORMATION---- Testing was performed using the Elijah SA RS-CoV-2 and Influenza A/B Reagent assay from [employer], which has received Emergency Use Authori zation(EUA) by the U.S. Food and Drug Administration . Fact sheets for this Emergency Use Autho rization (EUA) assay can be found at the following link s: For Healthcare Providers: https://www.fda.gov/media/560383/downloa d For Patients: https://www.fda.gov/media/776451/downloa d Infl A/B, SARS CoV-2, PCR, Source Swab, Nasopharynx 10/01/2020 1:56 AM HAIRSPRING SETTER STMA Specimen Anatomical Collection Method Collection Time Receive d Time (Source) Location / / Volume Laterality Varies 10/01/2020 1:56 AM 1:56 HAIRSPRING SETTER AM HAIRSPRING SETTER Aramis Stevens M.D., Ph.D. LAB MICROBIOLOGY - GENE RAL ORDERABLES Performing Organization Address City/State/ZIP Code Phon e Number [facility] - [address] [place], [place] [address] [facility] [place] [address] [facility] [address] Interpretation of Outside CT Abdomen and or Pelvis (10/01/2020 1:10 AM HAIRSPRING SETTER) Anatomical Region Laterality Modality Abdomen, Pelvis, Abdominal RST LOS, Abdominal ARZ LOS, N/A Computed Tomography Abdominal FLA LOS, Other Specimen (Source) Anatomical Collection Method Collection Time Re ceived Time Location / / Volume Laterality 10/01/2020 1:16 AM HAIRSPRING SETTER Impressions 10/01/2020 5:04 AM HAIRSPRING SETTER 1. Extensive fluid collections associated with necrotizing pancreatitis and known pancreatic malignancy are similar compared to CT 09/22/2020. 2. 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 Narrative 10/01/2020 5:04 AM HAIRSPRING SETTER EXAM: ??INTERPRETATION OF OUTSIDE CT ABDOMEN AND OR PELVIS COMPARISON: ??[facility] CT 09/22/2020 FINDINGS: ?? Interpretation of an outside IV contrast -enhanced CT of the abdomen and pelvis dated 09/30/2020. 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 Patent splenic artery without pseudoaneurysm. S imilar marked narrowing of the superior mesenteric vein, just proximal to the po rtal vein. Metallic biliary stent and pneumobilia, which has slightly increased within the intrahepatic ducts and decreased in the gallbladder since the prior exam. 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 Stable left pleural effusion with compre ssive atelectasis. Procedure Note Rangel Maurice M.D. - 10/01/2020For matting of this note might be different from the original. EXAM: INTERPRETATION OF OUTSIDE CT ABDOM EN AND OR PELVIS COMPARISON: [facility] CT 09/22/2020 FINDINGS: Interpretation of an outside IV contrast -enhanced CT of the abdomen and pelvis dated 09/30/2020. 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 Patent splenic artery without pseudoaneurysm. S imilar marked narrowing of the superior mesenteric vein, just proximal to the po rtal vein. Metallic biliary stent and pneumobilia, which has slightly increased within the intrahepatic ducts and decreased in the gallbladder since the prior exam. 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 Stable left pleural effusion with compre ssive atelectasis. IMPRESSION: 1. Extensive fluid chemistry associate d with necrotizing pancreatitis and known pancreatic malignancy are similar compared to CT 09/22/2020. 2. 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 Adam Novoa M.D. 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 Use 100 mL bag then disca rd. enoxaparin injection 80 mg (LOVENOX) 80 mg, subcutaneous, 2 times daily, First dose (after last modification) on Sandra 10/01/20 at 1030 HYDROmorphone (PF) injection 0.5 mg (DIL AUDID) 0.5 mg, intravenous, Every 2 hour PRN, s evere pain or score 7-10 of 10, Starting on Sandra 10/01/20 at 0151 HYDROmorphone tablet 1 mg (DILAUDID) Given 10/01/2020 9:04 PM HAIRSPRING SETTER 1 mg 1 mg, oral, Every 4 hours PRN, moderate pain or score 4-6 of 10, Starting on Sandra 10/01/20 at 0913 HYDROmorphone tablet 2 mg (DILAUDID) Given 10/01/2020 3:03 AM HAIRSPRING SETTER 2 mg 2 mg, oral, Every 4 hours PRN, moderate pain or score 4-6 of 10, Starting on Sandra 10/01/20 at 0150 lactated ringers New Bag 10/01/2020 12:36 PM HAIRSPRING SETTER 250 mL/hr 250 mL/hr 250 mL/hr, intravenous, Continuous, Starting on Sandra 10/01/20 at 0200 New Bag 10/01/2020 7:28 AM HAIRSPRING SETTER 250 mL/hr 250 mL/hr New Bag 10/01/2020 2:24 AM HAIRSPRING SETTER 250 mL/hr 250 mL/hr NaCl 0.9% infusion 10-250 mL/hr, intravenous, As needed, Be tween Consecutive Piggyback Medications, Starting on Sandra 10/01/20 at 1149, Infuse at the same ra te as the piggyback until tubing clears or up to a volume of 20 mL . Select for IV medication administration when no maintenance IV available or when IV medication s are not compatible with maintenance fluid. NaCl 0.9% infusion 10-250 mL/hr, intravenous, As needed, Post Medications (Hazardous/Low Fluid Volume), Starting on Sandra 10/01/20 at 1149 , Infuse at the same rate as the medication until tubing cleared of medication, then discard. naloxone injection 0.2 mg (NARCAN) 0.2 mg, intravenous, As needed, respirat ory depression, Starting on Sandra 10/01/20 at 0151, For RASS Score -4 or less, respiratory rate of l ess than 8 breaths/min. Notify provider/service and rapid response team (if av ailable at institution). pantoprazole DR tablet 40 mg (PROTONIX) Given 10/02/2020 6:54 AM HAIRSPRING SETTER 40 mg 40 mg, oral, Daily before breakfast, First dose on Sandra 10/01/20 at 0700, Swallow whole. Do NOT crush, chew, or split tablet. Given 10/01/2020 7:28 AM HAIRSPRING SETTER 40 mg piperacillin-tazobactam in dextrose New Bag 10/02/2020 1:54 AM HAIRSPRING SETTER 3.375 g 100 mL/hr (iso-osm) IVPB 3.375 g (ZOSYN) 3.375 g, intravenous, at 100 mL/hr, Administer over 0.5 Hours, Every 6 hours, First dose on Sandra 10/01/20 at 0200, premix bag, Drug Monitoring Program: Pharmacist to adjust medication dosing based on indication and drug clearance factors., Indications: Intra-abdominal infection, community acquired New Bag 10/01/2020 9:05 PM HAIRSPRING SETTER 3.375 g 100 mL/hr New Bag 10/01/2020 5:21 PM HAIRSPRING SETTER 3.375 g 100 mL/hr polyethylene glycol powder packet 1 pack et (MIRALAX) 1 packet, oral, Daily, First dose on Sandra 10/01/20 at 09 00, Ordered sequence of administration: polyethylene glycol, the n bisacodyl until BM achieved. Avoid mixing with starch-based thickened liquids. sennosides tablet 8.6 mg (SENOKOT) Given 10/02/2020 9:07 AM HAIRSPRING SETTER 8.6 mg 8.6 mg, oral, Daily, First dose on Sandra 10/01/20 at 0900 Given 10/01/2020 9:35 AM HAIRSPRING SETTER 8.6 mg documented in this encounter Active and Recently Administered Medications Times are shown in HAIRSPRING SETTER. Scheduled Medication Order 09/30/2020 10/01/2020 10/02/2020 enoxaparin injection 80 mg (LOVENOX) 102 8 (Held by provider - Provider: Stephanie Tapia M.D. - Comment: procedure)1030 (Not Given - Provider: Karen Huang RMariajose - Reason: See Provider Order)2100 (Dose Auto Held - Provider: Stephanie Tapia M.D.) 0900 (Dose Auto Held - Provider: Stephanie Tapia M.D.)1501 (Unheld by provider - Provider: Discharge Provider, Automatic) 80 mg, subcutaneous, 2 times daily, Firs t dose (after last modification) on Sandra 10/01/[address] tablet 40 mg (PROTONIX) 0728 (Given - Provider: Karen Huang R.N.) 0654 (Given - Provider: Nikki de jesus, R.N.) 40 mg, oral, Daily before breakfast, Fir st dose on Sandra 10/01/20 at 0700, Swallow whole. Do NOT crush, chew, or split tablet. piperacillin-tazobactam in dextrose (iso-osm) IVPB 3.375 g ( ZOSYN) (CANCELED) 0302 (New Bag - Provider: Namita Goodwin R.N.)0728 (New Bag - Provider: Karen Huang R.N.)1721 (New Bag - Provider: Precious Nevarez R.Carlos.)2105 (New Bag - Provider: Precious Nevarez R.N.) 0154 (New Bag - Provider: Nikki Bermudez R.N.) 3.375 g, intravenous, at 100 mL/hr, Admi nister over 0.5 Hours, Every 6 hours, First dose on Sandra 10/01/20 at 0200, premix bag, Drug Monitoring Program: Pharmacist to adjust medication dosing based on jasper cation and drug clearance factors., Jasper cations: Intra-abdominal infection, community acquired polyethylene glycol powder packet 1 packet (MIRALAX) 0940 (Not Given - Provider: Karen Huang R.N. - Reason: NPO) 0907 (Not Given - Provider: Laura Smith.P.N. - Reason: Patient/family refused) 1 packet, oral, Daily, First dose on Sandra 10/01/20 at 0900, Ordered sequence of administration: polyethylene glycol, then bisacodyl until BM achieved. Avoid mixing with starch-based thickened liquids. sennosides tablet 8.6 mg (SENOKOT) 0935 (Given - Provider: Karen Huang RMariajose) 0907 (Given - Provider: Yoly huggins, L.P.N.) 8.6 mg, oral, Daily, First dose on Sandra 10/01/20 at 0900 Continuous Medication Order 09/30/2020 10/01/2020 10/02/2020 lactated ringers 0224 (New Bag - Prov ider: Namita Goodwin R.NRiaz)0728 (New Bag - Provider: Karen Huang RMariajose)1236 (New Bag - Provider: Rangel Luo RRiazNRiaz) 250 mL/hr, intravenous, Continuous, Starting on Sandra 10/01/20 at 0 200 lactated ringers 1724 (Not Given - Pr ovider: Precious Nevarez R.N. - Reason: Order parameters not met) 20 mL/hr, intravenous, at 20 mL/hr, Cont inuous, Starting Sandra 10/01/20 at 1530, PACU & Post-Op PRN Medication Order 09/30/2020 10/01/2020 10/02/2020 D5W infusion 10-250 mL/hr, intravenous, As needed, Me dications Incompatible with 0.9% NaCL, Starting on Sandra 10/01/20 at 1149, Infuse at the same rate as the piggyback until tubing clears or up to a volume of 20 mL pr e and post infusion for medications inco mpatible with 0.9% NaCL. Use 100 mL bag then discard. fentaNYL injection 25 mcg (SUBLIMAZE) 25 mcg, intravenous, Every 2 min PRN, mo derate pain or score 4-6 of 10, severe pain or score 7-10 of 10, Starting Sandra 10/01/20 at 1544, PACU (only), Up to maximum total dose of 200 mcg granisetron (PF) injection 1 mg (KYTRIL) 1 mg, intravenous, Once as needed, nause a, vomiting, Starting Sandra 10/01/20 at 1544, For 1 dose, PACU (only), If patient does not respond to ondansetron or haloperidol. (order of antiemetic administration - ondansetron then haloperidol then granisetron) HYDROmorphone (PF) injection 0.5 mg (DILAUDID) 0.5 mg, intravenous, Every 2 hour PRN, s evere pain or score 7-10 of 10, Starting on Sandra 10/01/20 at 0151 HYDROmorphone tablet 1 mg (DILAUDID) 210 4 (Given - Provider: Precious Nevarez R.N.) 1 mg, oral, Every 4 hours PRN, moderate pain or score 4-6 of 10, Starting on Sandra 10/01/20 at 0913 HYDROmorphone tablet 2 mg (DILAUDID) (CANCELED) 0303 (Given - Provider: Namita Goodwin RRiazNRiaz) 2 mg, oral, Every 4 hours PRN, moderate pain or score 4-6 of 10, Starting on Sandra 10/01/20 at 0150 NaCl 0.9% infusion 10-250 mL/hr, intravenous, As needed, Be tween Consecutive Piggyback Medications, Starting on Sandra 10/01/20 at 1149, Infuse at the same rate as the piggyback until tubing clears or up to a volume of 20 mL. Select for IV medication administration when no maintenance IV available or when IV medications are not compatible with maintenance fluid. NaCl 0.9% infusion 10-250 mL/hr, intravenous, As needed, Po st Medications (Hazardous/Low Fluid Volume), Starting on Sandra 10/01/20 at 1149, Infuse at the same rate as the medication until tubing cleared of medication, then discard. naloxone injection 0.2 mg (NARCAN) 0.2 mg, intravenous, As needed, respirat ory depression, Starting on Sandra 10/01/20 at 0151, For RASS Score -4 or less, respiratory rate of less than 8 breaths/min. Notify provider/service and rapid response team (if available at institution). ondansetron (PF) injection 4 mg (ZOFRAN) 4 mg, intravenous, Every 6 hours PRN, na usea, vomiting, (check to see if given intra-op), Starting Sandra 10/01/20 at 1544, For 48 hours, PACU (only), Administer first. If nausea and vomiting persists, move to haloperidol. (order of antiemetic ad ministration - ondansetron then haloperidol then granisetron) documented in this encounter Additional Health Concerns Infection Onset Date Last Indicated Resolved Time COVID19 Pending 10/01/2020 10/01/2020 10/01/2020 1:58 AM HAIRSPRING SETTER documented as of this encounter Care Teams Aesthetics Instructor Relationship Specialty Start Date End Date Elsewhere, Pcp PCP - General Family Medicine 08/12/20 documented as of this encounter
--- OUTSIDE RECORDS SUMMARY | 2022-06-18 16:21 | XMS_ITS | Encounter Summary ---
:1965 Author Organization [facility] Address [address] [place] [address] Care Team Providers Name Role Phone Elsewhere, Pcp Primary Care Provider Unavailable Reason for Visit Auth/Cert Specialty Diagnoses / Procedures Referred By Contact Refer red To Contact Diagnoses Malignant Neoplasm Of Pancreas (HCC) Unspecified abdominal pain Procedures DIR Referral ID Status Reason Start Date Expiration Date Visits Requ ested Visits Authorized [id number] 1 1 Encounter Details Date Type Department Care Team Description 10/18/2020 - Hospital Encounter [facility] Shruti Thakkar M.D. [address] [place] [address] Malignant Neoplasm 10/22/2020 Hospital, Billie Vargas M.D. [address] [place] [address] Of Pancreas (HCC) [facility] (Primary D x) [facility], Fourth Floor [address] [place] [address] Social History Tobacco Use Types [...] How often do you attend samaritan or sabianist services? Never 01/15/2021 Do you [...] at Date Recorded Male 08/18/2021 2:55 PM FUNERAL COUNSELOR documented as of this encounter Last Filed Vital Signs Vital Sign Reading Time Taken Comments Blood Pressure 103/59 10/22/2020 3:35 PM FUNERAL COUNSELOR Pulse 116 10/22/2020 3:35 PM FUNERAL COUNSELOR Temperature 37.2 ??C (99 ??F) 10/22/2020 3:35 PM FUNERAL COUNSELOR Respiratory Rate 18 10/22/2020 3:35 PM FUNERAL COUNSELOR Oxygen Saturation 94% 10/22/2020 3:35 PM FUNERAL COUNSELOR Inhaled Oxygen Concentration - - Weight 72.8 kg (160 lb 7.9 oz) 10/18/2020 12:26 PM FUNERAL COUNSELOR Height 179.7 cm (5' 10.75) 10/19/2020 2:59 PM FUNERAL COUNSELOR Body Mass Index 22.54 10/18/2020 12:26 PM FUNERAL COUNSELOR documented in this encounter Discharge Summaries Brian Maguire, GUERO, C.N.P. - 10/22/2020 4:24 PM CST DISCHARGE SUMMARY BRIEF OVERVIEW Hospital: [facility] Discharge Provider: Billie Shaw M.D. Primary Care Providers: Pcp, Elsewhere (General) No address on file Primary Care Provider Phone Number: None Primary Care Provider Fax Number: None Admission Date: 10/18/2020 Discharge Date: 10/22/2020 PRINCIPAL DIAGNOSIS Malignant Neoplasm Of Pancreas (HCC) SECONDARY DIAGNOSES Principal Problem: Malignant Neoplasm Of Pancreas (HCC) Active Problems: Hyponatremia Resolved Problems: * No resolved hospital problems. * DISCHARGE DISPOSITION Home or Self Care [1] ACTIVE ISSUES REQUIRING FOLLOW UP RECOMMENDATIONS FOR PATIENT - Please go to your local Emergency Room for a fever of 38.0 C (100.4 F). - Please call the [facility] and ask for the Oncology Construction Framer provider if you haveany questions or concerns. OUTPATIENT FOLLOW UP Scheduled Appointments 10/23/2020 9:15 AM Efren Osuna M.D.; Fady Joshi M.D.; SANCHEZ ALEXANDRO 860P RM 07 Radiology 10/23/2020 12:30 PM LAB BLOOD [facility] 10 E Laboratory Medicine 10/23/2020 2:15 PM ONC CHAIR CHEMO 22 ROGO Oncology 10/30/2020 10:40 AM LAB BLOOD ROCH LO Laboratory Medicine 10/30/2020 12:45 PM ONC CHAIR CHEMO 36 ROGO Oncology 11/13/2020 11:20 AM LAB BLOOD [facility] 10 E Laboratory Medicine 11/13/2020 1:20 PM Maria Del Rosario Gomez, GUERO C.N.P., M.S. Oncology 11/13/2020 2:15 PM ONC CHAIR CHEMO 38 ROGO Oncology For appointment details refer to your Patient Appointment Guide. TEST RESULTS PENDING AT DISCHARGE Pending Labs None DETAILS OF HOSPITAL STAY REASON FOR ADMISSION Malignant Neoplasm Of Pancreas (HCC) HOSPITAL COURSE Patient is a 55 y.o. male who presents with a history of pancreatic cancer status post common bile duct stenting on July 29, 2020 and status post ERCP on 08/04/2020. 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 He was treated with a 6 week duration of ceftriaxone. This was scheduled to be completed on 09/24/2019. However on 09/09/2020 he underwent an MRCP that showed a decrease in the size of the peripancreatic fluid collections, stable thrombus of the left portal vein, and no significant intra have headache biliary ductal dilatation so the antibiotics were switched to ertapenem. He presented to the hospital on 09/12/2020 and was found to have extensive necrotizing peripancreatic fluid collections with foci of gas. He was switched for short period of time to Zosyn and then switch back to ertapenem and discharged. He was seen on 10/[address] Murray, his medical oncologist, and he started chemotherapy which included albumin bound paclitaxel and gemcitabine. He tolerated the treatment well. day night, however, he woke up to a fever of 101.8. He presented to the emergency department in [place]. He had blood cultures drawn while he was there and then was discharged to home. The following morning he woke up with abdominal pain that he rated 12/10. [facility] room. They admitted him to the [facility] and the patient requested to be transferred to [facility]. Follow transfer, he was started on Zosyn for potential recurrence of his abscess and ID was consulted. Repeat blood cultures were obtained. An abdominal CT was performed at OSH. This was read and interpreted by our radiologist at [facility]. Imaging showed extensive residual multiloculated fluid collections in the pancreas bed/left upper quadrant are slightly decreased in size compared imaging on 10/05. The patient remained afebrile during this hospitalization and blood cultures came back negative. Zosyn was discontinued. On the evening on 10/19, the service was notified of persistent tachycardia, this was evaluated with an ECG which showed evidence of possible acute WV/STEMI with ST elevation. Troponins were drawn and a repeat ECG was ordered. The repeat ECG no longer showed evidence of WV. Impression was sinus tachycardia with nonspecific ST and T wave abnormality. Troponin at baseline was <6. 2 hr troponin no delta, < 6. Patient was not experiencing any chest pain or shortness of breath. Lab work showed a hgb of 8.5. This had previously been 10.7 prior to chemotherapy on 10/16. This is likely chemotherapy-induced. No obvious signs of bleeding or worsening abdominal pain. A recheck was performed 5 hours later. T his was stable at 8.7. Cardiology overnight who responded to the ECG findings, did recommend a ECHO.This was performed and showed an EF of 61% and no regional wall abnormalities. IVC was small and collapsed, suggestive of dehydration. He was given IV fluids which improved his HR to the 100's. Blood pressures are in the 100s/60s (MAP 70s). He was encouraged to increase his oral intake. Abdominal pain continued to cause Mr. Campbell significant discomfort. He was taking hydromorphone around the clock with only mild relief. The pain significantly increased with ambulation. CT scan from 10/17 did show a good deal of stool. He had not had a bowel movement for a couple of days. He was still pa ssing flatus. An aggressive bowel regimen was started. Pain service was curbsided for possible consideration of a celiac plexus block. Unfortunately, given recent pancreatitis and ongoing peripancreatic fluid collections the procedure has been deemed too high risk at this time. This could be reassessed in the future once fluid collections resolve. A palliative medicine consult has been placed to assist with ongoing complex pain management. Hydromorphone was changed to oxycodone. Anti-inflammatories were considered, but due to recent concern for infection these were not started. GI was consulted andrecommended no surgical intervention. The recommendation was to be aggressive with bowel care to seeif reducing stool burden would help with pain and nausea. Throughout this hospitalization the patient has been found to be hyponatremic potentially related to dehydration. We did provide IV fluid in hopes of correcting his sodium. CONSULTS ORDERED DURING THIS ADMISSION IP CONSULT TO DIETITIAN IP CONSULT TO INFECTIOUS DISEASES IP CONSULT TO PALLIATIVE CARE IP CONSULT TO GASTROENTEROLOGY CONDITION AT DISCHARGE stable Discharge instructions were provided to the patient and caregiver(s). RAL COUNSELOR documented in this encounter Discharge Instructions Discharge InstructionsJacqui Cummins - 10/19/2020 7:20 AM CST You were discharged from the [facility] On[facility] Service. Please identify this service name if youcall with questions after hospitalization. [facility] experts agree: You should get a COVID-19 vaccine as soon as it's available to you. ??? The vaccines that we???re recommending have been approved for safe use. ??? [facility] will continue to coordinate with state and local governments on future vaccine distribution phases. o If you plan to receive your vaccination at [facility], please ensure that you have activated yourPatient Portal at [email or web address] to allow [facility] to communicate to you about the scheduling process. ??? Practice social distancing, wear a mask properly outside your home, wash your hands frequently, and follow your state and local recommendations until the spread has stopped. ??? The vaccine may not be recommended to those with certain health conditions. Talk to your health care provider if you have questions about receiving the vaccine. RAL COUNSELOR AttachmentsThe following attachments cannot be sent through Care Everywhere. Lorazepam (By mouth) ([place])Magnesium Citrate (By mouth) ([place])Polyethylene Glycol 3350 (By mouth) ([place])documented in this encounter Medications at Time of Discharge Medication Sig Dispensed Refills Start Date End Date polyethylene glycol Take 1 packet (17 0 1 (MIRALAX) 17 gram powder g total) by mouth packet 2 (two) times a day. Dissolve each 17 g dose in 240 mLs (8 ounces) of beverage. sennosides-docusate sodium Take 3 tablets by 0 (SENOKOT-S) 8.6-50 mg per mouth 2 (two) tablet times a day. pantoprazole (PROTONIX) 40 Take 1 tablet (40 90 tablet 3 10/02/2021 mg EC tablet mg total) by mouth every morning before breakfast. acetaminophen (TYLENOL) Take 1 tablet 0 0 01/01/2021 500 mg tablet (500 mg total) by mouth every 6 (six) hours. enoxaparin (LOVENOX) 80 Inject 0.8 mL (80 120 Syringe 0 01/202010/30/2020 mg/0.8 mL injection mg total) under the skin 2 (two) times a day. LORazepam (ATIVAN) 0.5 mg Take 1 tablet 30 tablet 5 021 10/23/2020 tablet (0.5 mg total) by mouth 3 (three) times a day as needed for anxiety. magnesium citrate Take 296 mL by 296 mL 0 10/22/2020 (CITROMA) solution mouth once for 1 dose. ondansetron (ZOFRAN) 8 mg Take 1 tablet (8 20 tablet 0 01/202102/24/2021 tablet mg total) by mouth every 8 (eight) hours as needed for nausea or vomiting. oxyCODONE (ROXICODONE) 10 Take 1 tablet (10 0 07/202112/22/2020 mg IR tabletIndications: mg total) by Chronic Pain/Nonacute Pain mouth every 3 (three) hours as needed for moderate pain or score 4-6 of 10 or severe pain or score 7-10 of 10 Indication: Chronic Pain/Nonacute Pain. prochlorperazine Take 1 tablet (10 60 tablet 2 10/16/2020 0 10/30/2020 (COMPAZINE) 10 mg tablet mg total) by mouth every 6 (six) hours as needed for nausea or vomiting. documented as of this encounter Progress Notes Irene Kramer L.I.C.S.W., M.S.W. - 10/22/2020 5:33 PM CST SUBJECTIVE Attempted to meet with the patient today for consult for coping and adjustment. He was unavailable to meet both times. Will attempt again tomorrow. OBJECTIVE Social work received a consult for coping and adjustment. ASSESSMENT / PLAN ASSESSMENT Attempted to meet with the patient today for consult for coping and adjustment. He was unavailable to meet both times. Will attempt again tomorrow. PLAN Social work will attempt to meet with patient tomorrow to provide a supportive visit. Radha Villa M.S.W. 10/22/20 RAL COUNSELOR Melonie Alston M.D. - 10/22/2020 3:57 PM CST GASTROENTEROLOGY CONSULT PROGRESS NOTE IMPRESSION AND PLAN # Pancreatitis w/ fluid collections, improving # Pancreatic adenocarcinoma # Malignant biliary stenosis s/p CBD stents # Bilateral lower quadrant abdominal pain likely secondary to # Severe Constipation This is a 55-year-old gentleman who was transferred to [facility] for fever and abdominal pain. 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 As since yesterday, we provided the patient with aggressive bowel regimen including 10 oz of magnesium citrate and he was able to have multiple bowel movements overnight. This morning, he feels much better and does not have any further abdominal pain. He denied night sweats or fevers. His vital signs have been unremarkable and his white blood cell count continues to be normal at 6.5 without evidence of an infection. Blood cultures have been negative thus far. I also discussed today with Dr. Cassidy regarding his recent CT scan of the abdomen consistent with extensive residual multiloculated fluid collections in the pancreas that are slightly decreased in sizecompared to the prior exam. At this time, given the patient's improvement with laxatives and no needfor antibiotic therapy, the thought is that his symptoms were secondary to severe constipation, insufficient bowel regimen at home while on narcotics, and unlikely from the pancreatic collections whichseem to be improved from prior imaging. ?? Recommendations: -We recommend that outpatient, he follows standing bowel regimen of 17 g of MiraLax along with 2 tablets of senna and plenty of fluids throughout the day to ensure that he does not develop constipationspecially in the setting of narcotic use at home. We also recommend using Dulcolax suppositories twice a week. - I have educated patient and over the phone regarding the new bowel regimen which should be prescribed by primary team upon discharge. -If he develops fevers, the pancreatic fluid collections would need to be reassessed with CT imagingand he would potentially require suppressive therapy with antibiotics prior to considering necrosectomy. Patient discussed with Dr. Garcia, Dr. Cassidy and Dr. Curiel. Gastroenterology will sign off. Please page [phone] with questions. Melonie Sanchez MD. Gastroenterology and Hepatology [facility], RST RAL COUNSELOR Jewel Romeo M.D. - 10/22/2020 10:50 AM CST Images from the original note were not included. [facility] Sign Off Note Patient: Adam Campbell; 55 y.o.male Location: 423/423-P Date of Service: 10/22/2020 Time of Visit: 10:50 AM FUNERAL COUNSELOR Hospital Admission Date: 10/18/2020 11:42 AM Hospital Day: 4 Primary Tanker Driver: Billie Shaw M.D. Primary Care Provider: ELSEWHERE, PCP SUBJECTIVE Reason for Consult: Abdominal pain Subjective Wiliam is doing better today after having several bowel movements. He is having fairly minimal abdominal pain and took only 1 dose of oxycodone yesterday. OBJECTIVE Vital Signs, In/Out, Physical Exam Temperature: [36.4 ??C-37.5 ??C] 37.5 ??C Resp Rate: [17-20] 20 Blood Pressure: (85-113)/(57-71) 103/67 SpO2: [97 %-100 %] 100 % Pulse Rate: [88-126] 126 I/O last 3 completed shifts: In: 1175 [P.O.:420] Out: 701 [Urine:700; Other:1] No intake/output data recorded. General: Pleasant gentleman sitting up in bed, no acute distress. HEENT: Moist mucous membranes, no scleral icterus. CV: Regular rate and rhythm. Respiratory: Unlabored respirations. Abdomen: Non-distended. Extremities: Warm, well perfused. Musculoskeletal: No gross muscular or joint deformities. Skin: Warm, dry. Neurologic: No myoclonus. Psychiatric: RASS 0. Medications/Diagnostics: Medications and allergies reviewed. Previous lab and radiology results reviewed. Creatinine 0.79. ASSESSMENT / PLAN Impression/Report/Plan ??Adam Campbell??is a 55-year-old gentleman from [facility] with borderline resectable pancreatic cancer who was admitted to the hospital for complications of necrotizing pancreatitis. ??Palliative Medicine is consulted for recommendations regarding cancer associated pain. ?? 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 He has had 5 bowel movements in the past 24 hours and he has had improvement in his other symptoms like pain and nausea/vomiting. He has only required 1 dose of oxycodone in the past 24 hours with no significant opioid toxicities. Recommendations For Today ?? No new recommendations. Sign Off Summary ?? Initial Reason For Consultation: Pain ?? Summary of How Consult Question was Addressed: Mr. Adam Campbell is a 55-year-old gentlemanwith pancreas cancer and necrotizing pancreatitis. We were asked to visit him regarding pain. We rotated him from hydromorphone to oxycodone due to inadequate analgesia with side effects on hydromorphone. We collaborated on an intensive bowel regimen as suggested by Medical Oncology. He declined our interdisciplinary team services. ?? Summary of Interdisciplinary Care Provided: Patient declined. ?? Advance Care Planning: Advance Care Planning Not Addressed During this Consultation ?? Reasons to Reconsult Palliative Medicine: Concerns about original pain or non-pain symptom ?? Discussed/Reviewed With: Primary Service CLINICAL ASSESSMENT MANAGER/PA ?? Outpatient Followup Arranged: Outpatient Palliative Medicine Clinic Not Needed/Recommended (e.g. hospice discharge, chronic pain, etc.) We will sign off today. Please do not hesitate to call the Palliative Medicine Service pager at [phone] ([facility]), [phone] ([facility]), or [phone] ([facility]) for any questions. Total time spent was 15 minutes, with 13 minutes spent on counseling and coordination of care, including diagnostic results/impressions, further recommendations for diagnostic studies, risks/benefits/alternatives of treatment options, and importance of adherence with suggested management plans. I also reviewed my impressions and recommendations with other health care providers to accommodate the needs of the patient. Jewel Romeo M.D. Material Expeditortraffic control flagger Division of General Internal Medicine Center for Palliative [facility] RAL COUNSELOR Jewel Romeo M.D. - 10/21/2020 2:32 PM CST Images from the original note were not included. [facility] Progress Note Patient: Adam Campbell; 55 y.o.male Location: 423/423-P Date of Service: 10/21/2020 Time of Visit: 2:32 PM FUNERAL COUNSELOR Hospital Admission Date: 10/18/2020 11:42 AM Hospital Day: 3 Primary Tanker Driver: Billie Shaw M.D. Primary Care Provider: ELSEWHERE, PCP SUBJECTIVE Reason for Consult: Pain Subjective Wiliam is feeling disappointed today. His abdominal pain is little better. He is having significant bloating and constipation with associated nausea/vomiting. He had an adverse reaction to prochlorperazine. OBJECTIVE Vital Signs, In/Out, Physical Exam Temperature: [36.3 ??C-37.9 ??C] 36.3 ??C Resp Rate: [18-22] 20 Blood Pressure: (90-112)/(51-68) 96/65 SpO2: [90 %-100 %] 100 % Pulse Rate: [58-140] 89 I/O last 3 completed shifts: In: 2070 [P.O.:770] Out: 975 [Urine:975] I/O this shift: In: 400 [P.O.:100] Out: 550 [Urine:550] VS: BP 96/65 (BP Location: Upper;Left arm, Patient Position: Semi-recumbent) Pulse 89 Temp 36.3 ??C (Oral) Resp 20 Ht 179.7 cm Wt 72.8 kg SpO2 100% BMI 22.54 kg/m?? General: Pleasant but somewhat reserved gentleman sitting up in bed, no acute distress HEENT: Moist mucous membranes, no scleral icterus. CV: Regular rate and rhythm. Respiratory: Unlabored respirations. Abdomen: Non-distended, hypoactive bowel sounds. Extremities: Warm, well perfused. Musculoskeletal: No gross muscular joint deformities Skin: Warm, dry. Neurologic: No myoclonus. Psychiatric: RASS 0. Medications/Diagnostics: Medications and allergies reviewed. Previous lab and radiology results reviewed. Creatinine 0.81. ASSESSMENT / PLAN Impression/Report/Plan Mr. Adam Campbell is a 55-year-old gentleman from [facility] with borderline resectable pancreatic cancer who was admitted to the hospital for complications of necrotizing pancreatitis.Palliative Medicine is consulted for recommendations regarding cancer associated pain. ?? 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 He thinks the 10 mg dose is superior to the5 mg dose and says ???it works alright. I think that his pain is a mix of nociceptive and inflammatory components, so I suggest treatment of these 2 mechanisms. For nociceptive pain, I think we will have to rely primarily on opioids. Ideally, he would be a candidate for a celiac plexus neurolysis, but as we understand it, our Interventional Pain Team did not think he had favorable anatomy. For inflammatory pain, I recommend consideration of corticosteroids. Unfortunately, we are not able use NSAIDsbecause of his anticoagulation. He is progressively more constipated and the medical oncology team has instituted a progressive bowel regimen. He is having nausea/vomiting, likely secondary to his constipation. I also wonder about ileus given the inflammation surrounding the pancreas. Thus, I think focusing on the bowel regimen is the best treatment for nausea. I would avoid 5HT3 antagonists, as these can cause constipation. He hadan adverse reaction to prochlorperazine, which he describes as feeling loopy/sleepy, which is not unusual. Prochlorperazine has a significant antihistamine and anticholinergic receptor profile that can cause these side effects. The most likely mechanism for his nausea is peripheral/CTZ dopamine receptors, so I think it is worth considering other dopamine blockers like olanzapine or haloperidol. Lorazepam is a potent anxiolytic that can be effective for nausea when it is related to anxiety. I am certainly in favor with escalating the patient's bowel regimen. I look forward to what Gastroenterology has to say, particularly whether or not he would be a candidate for any sort of interventions such as pancreas necrosectomy. Recommendations ?? Oxycodone 10 mg by mouth every 3 hours as needed for pain. ?? Consider steroid for inflammatory pain, e.g. dexamethasone 2-4 mg by mouth twice daily at 0800 and 1400. ?? Intensive bowel regimen as suggested by Medical Oncology. ?? Discussion of nausea as above. We will continue to follow this patient with you and collaborate on their care. Please do not hesitate to call the Palliative Medicine Service pager at [phone] ([facility]), [phone] ([facility]), or [phone] ([facility]) for any questions. Total time spent was 35 minutes, with 33 minutes spent on counseling and coordination of care, including diagnostic results/impressions, further recommendations for diagnostic studies, risks/benefits/alternatives of treatment options, and importance of adherence with suggested management plans. I also reviewed my impressions and recommendations with other health care providers to accommodate the needs of the patient. Jewel Romeo M.D. Material Expeditortraffic control flagger Division of General Internal Medicine [facility] Palliative [facility] RAL COUNSELOR Brian Maguire APRN, C.N.P. - 10/21/2020 1:35 PM CST SUBJECTIVE The patient this morning had nausea with vomiting. He had received a dose of Compazine which he did not tolerate side effects for. We are going to initiate Ativan at low doses 0.5 mg 3 times a day for nausea. I have reviewed the current medication list. OBJECTIVE VITAL SIGNS Temperature: [36.3 ??C-37.9 ??C] 36.3 ??C Resp Rate: [18-22] 20 Blood Pressure: (90-112)/(51-68) 96/65 SpO2: [90 %-100 %] 100 % Pulse Rate: [58-140] 89 Intake/Output Last 24 Hours: Intake/Output Summary (Last 24 hours) at 10/21/2020 1335 Last data filed at 10/21/2020 1213 Gross per 24 hour Intake 1450 ml Output 675 ml Net 775 ml PHYSICAL EXAM General: Alert, oriented, no apparent distress HENT: Moist oral mucosa with mucositis Skin: No rashes or ulcers right hand extravasation edematous with erythema Heart: Regular rate and rhythm. Extremities: No significant edema. Lungs: Clear to auscultation bilaterally Abdomen: Soft, active. Generalized tenderness with palpation during pain episodes. Mood: Quite anxious today DIAGNOSTICS Recent Results (from the past 24 hour(s)) Hemoglobin Collection Time: 10/20/20 3:08 PM Result Value Hemoglobin 7.9 (L) CBC no call back, reflex T/S HGB <8 Collection Time: 10/21/20 4:36 AM Result Value Hemoglobin 8.1 (L) Hematocrit 25.7 (L) Erythrocytes 3.31 (L) MCV 77.6 (L) RBC Distrib Width 15.0 (H) Platelet Count 215 Leukocytes 6.4 Neutrophils 5.55 Lymphocytes 0.38 (L) Monocytes 0.46 Eosinophils <0.03 Basophils <0.03 Basic Metabolic Panel Collection Time: 10/21/20 4:36 AM Result Value Potassium, S 3.4 (L) Sodium, S 129 (L) Chloride, S 95 (L) Bicarbonate, S 27 Anion Gap 7 Bld Urea Nitrog(BUN), S 12 Creatinine, S 0.94 eGFR-Non Black >90 eGFR-Black >90 Calcium, Total, S 8.0 (L) Glucose, S 118 Magnesium Collection Time: 10/21/20 4:36 AM Result Value Magnesium, S 1.6 (L) Cortisol Collection Time: 10/21/20 4:36 AM Result Value Cortisol, S 32 Hepatic Function Panel Collection Time: 10/21/20 4:36 AM Result Value Bilirubin, Total, S 1.2 Bilirubin, Direct, S 0.9 (H) Aspartate Aminotransferase (AST), S 17 Alanine Aminotransferase (ALT), S 16 Alkaline Phosphatase, S 124 Albumin, S 2.4 (L) Protein, Total, S 5.7 (L) Basic Metabolic Panel Collection Time: 10/21/20 10:07 AM Result Value Potassium, S 3.7 Sodium, S 131 (L) Chloride, S 94 (L) Bicarbonate, S 30 (H) Anion Gap 7 Bld Urea Nitrog(BUN), S 13 Creatinine, S 0.81 eGFR-Non Black >90 eGFR-Black >90 Calcium, Total, S 7.9 (L) Glucose, S 147 (H) ASSESSMENT / PLAN Mr. Adam Campbell is a 55 y.o. male with a history of pancreatic cancer status post common bile ductstenting on July 29, 2020 and status post ERCP on 08/04/2020. 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 He was treated with a 6 week duration of ceftriaxone. This was scheduled to be completed on 09/24/2019. However, on 09/09/2020 he underwent an MRCP that showed a decrease in the size of the peripancreatic fluid collections, stable thrombus of the left portal vein, and no significant intra have headache biliary ductal dilatation so the antibiotics were switched to ertapenem. He presentedto the hospital on 09/12/2020 and was found to have extensive necrotizing peripancreatic fluid collections with foci of gas. He does endorse night sweats and a fever of 101.8. He is having pain in the upper central abdominal area which he is rating a 6/10. He has no chills, shortness of breath, wheezing, cough, nausea and vomiting. ?? #1 Malignant Neoplasm Of Pancreas (HCC) - Patient has received his 1st cycle of chemotherapy on 10/16 which included albumin bound paclitaxel and gemcitabine. ?? #2 Fever #3 Hx of extensive residual multiloculated fluid collections in the pancreas -CT abd/pelvis at OSH on 10/17 showed extensive residual multiloculated fluid collections in the pancreas bed/left upper quadrant are slightly decreased in size compared imaging on 10/05. - Infectious disease following, recommend discontinuing antibiotics given stable fluid collections on imaging and negative blood cultures ([place] [facility] reports blood cultures obtained on 10/16 have NTGD). Will discontinue zosyn and monitor for fever/worsening symptoms. - Blood cultures drawn 10/18, NGTD. ?? #4 Abdominal pain - Dilaudid 2-4 mg p.o. q.4 hours p.r.n. - or Dilaudid 0.2 mg IV q.2 hours p.r.n. - Used 15mg of dilaudid yesterday. Pain is still significant when up ambulating. Patient not eligible for a celiac plexus block due to recent necrotizing pancreatitis and ongoing fluid collections. Palliative medicine consulted today. #5 Constipation, could likely be contributing to abdominal cramping - Started Miralax and senokot-s scheduled - two dose of lactulose and bisacodyl suppository given yesterday. - Will give another bisacodyl suppository today as well as a tap water enema. - give tap water enema with no results - will try EnemEEz - I have ordered Mag citrate #6 Tachycardia - Ongoing tachycardia was evaluated with an ECG which showed evidence of possible acute WV/STEMI with ST elevation. Troponins were drawn and a repeat ECG was ordered. The repeat ECG no longer showed evidence of WV. Impression was sinus tachycardia with nonspecific ST and T wave abnormality. Troponin at baseline was <6. Repeat was <6. Will obtain ECHO today to r/o cardiac dysfunction. - Etiology: pain vs. dehydration vs. infection - Patient is afebrile, repeat lactate was normal, BCx NGTD - Will provide IVFs today and reassess. - Palliative medicine consult for pain management ?? #7 Anemia - Lab work overnight showed a hgb of 8.5. This had previously been 10.7 prior to chemotherapy on 10/16. This is likely chemotherapy-induced. No obvious signs of bleeding or worsening abdominal pain. A recheck was performed 5 hours later. This was stable at 8.7. Will repeat hgb this afternoon. Monitor for signs of bleeding/worsening abdominal symptoms in the setting of recent necrotizing pancreatitis inDecember. #8 Extravasation - patient had potassium running unfortunately extravasated - he will receive local treatment with hyaluronidase 15 units in 5 syringes to be administered subcuaround infiltrate site. #9 Hypokalemia - potassium today 3.4 repleted with 40 mEq of IV potassium - will recheck tomorrow 10/22 #10 Hypomagnesia - magnesium 1.6 today repleted with 1 g - will recheck tomorrow 10/22 F: Encourage oral intake. IV bolus today given poor oral intake and constipation. E: Will monitor and replete as necessary N: General diet ?? VTE prophylaxis: Patient is therapeutically anticoagulated ECOG performance status: 1 Code status: Full code as per discussion on admission Discharge plan: 1-2 days. HSC. ?? RAL COUNSELOR Associated attestation - Billie Shaw M.D. - 10/21/2020 6:13 PM FUNERAL COUNSELOR Medical oncology supervisory note I evaluated the patient with the Medical Oncology team. I reviewed Brian Maguire's note. I agree with the findings and plan. Assessment and Plan #1 Malignant Neoplasm Of Pancreas (HCC) #2 Fever #3 Hx of extensive residual multiloculated fluid collections in the pancreas #4 Abdominal pain #5 Constipation This morning patient was having more issues with nausea. His pain seems to be somewhat improved witha transition to oxycodone as opposed to Dilaudid. We are continuing a very aggressive bowel regimen.We consulted Gastroenterology and their feeling is we need to continue the aggressive bowel regimen and no need for further intervention at this time. We will continue to support the patient in try to control pain and nausea. We need this under control before the patient be able to return home. Julieth Foster M.B., B.Ch., Ph.D. - 10/21/2020 5:07 AM CST Nursing staff called with respect to lower blood pressures and relative bradycardia Patient is known to me see notes from yesterday He had ongoing pain and tachycardia overnight. Gave patient 1 dose of Tylenol to see if this helped his pain and potential SIRS response. His temperature had heart rate appeared to respond with temperature dropping to 37.2 in heart rate to 85 On awakening at 4:00 a.m. he had some diaphoresis and nausea. He has had abdominal pain and nausea since admission. Pain meds were changed from Dilaudid to oxycodone today. He takes oxycodone at home. Was given a dose of Compazine around 4. When assessed he felt dizzy and out of it. Says he just does not feel right. Persistent abdominal pain but no new symptoms. Heart rate on exam is 110 and regular. Repeat blood pressure is 98 systolic He is oriented to time person and place, able to say the days week forward and backward. No obvious focal deficits. Strength is intact and symmetrical. Pupils are equal and reactive to light. No ophthalmoplegia. Sensation grossly intact No abnormal movements detected. Did get dizzy with sitting up in bed. Morning labs were obtained, hemoglobin is stable at 8.1 his symptoms probably relate to Compazine. He has had 1 other dose of this during this hospitalization without reported side effects Will DC this drug for now Note that he has had prolonged QTc Will repeat a magnesium with a.m. labs Potassium and calcium are pending Bolus IV fluid 500 LR Repeat EKG to assess QT Will repeat blood cultures given temp 37.9 and his history of BSI and pancreatic fluid collections _ note lower Na 129 on am labs ( was 130, 134 yesterday) He did get a bolus of LR ( total 1L overnight) Will repeat this at 10 am If worse or persistent then work up Replace K ( 3.4) Add am cortisol Corrected calcium is 9.1 RAL COUNSELOR Jacquie Hodgson APRN, C.N.P., M.S.N. - 10/20/2020 7:48 AM CST SUBJECTIVE Patient had an eventful night last night. Persistent tachycardia was evaluated with an ECG which showed evidence of possible acute WV/STEMI with ST elevation. Troponins were drawn and a repeat ECG was ordered. The repeat ECG no longer showed evidence of WV. Impression was sinus tachycardia with nonspecific ST and T wave abnormality. Troponin at baseline was <6. 2 hr troponin no delta, < 6. Patient was not experiencing any chest pain or shortness of breath. Lab work showed a hgb of 8.5. This had previously been 10.7 prior to chemotherapy on 10/16. This is likely chemotherapy-induced. No obvious signs of bleeding or worsening abdominal pain. A recheck was performed 5 hours later. This was stableat 8.7. Cardiology overnight who responded to the ECG findings, did recommend a ECHO today. This hasbeen ordered. He was given a LR bolus of 500mL. This improved HR from 130 to 120. Given ongoing poororal intake. Will give an additional 500mL bolus today. Patient is afebrile. Blood pressures are in the 100s/60s (MAP 70s). Abdominal pain today at rest is a 4 out of 10. Patient is taking hydromorphone around the clock. He reports this does help some, but the pain increases significantly with ambulation. He is passing a great deal of gas today. He only had a small formed bowel movement overnight. CT scan from 10/17 does show a good deal of stool burden. Will do another suppository followed by a tap water enema today. Will continue Senokot-s and Miralax. Pain service was curbsided today for possible consideration of a celiac plexus block. Unfortunately, given recent pancreatitis and ongoing peripancreatic fluid collections the procedure has been deemed too high risk at this time. This could be reassessed in the future once fluid collections resolve. A palliative medicine consult has been placed to assist with ongoing complex pain management. I have reviewed the current medication list. OBJECTIVE VITAL SIGNS Temperature: [36.7 ??C-37.5 ??C] 37.5 ??C Resp Rate: [16-20] 20 Blood Pressure: (94-110)/(50-69) 107/65 SpO2: [90 %-97 %] 91 % Pulse Rate: [121-134] 127 Intake/Output Last 24 Hours: Intake/Output Summary (Last 24 hours) at 10/20/2020 0731 Last data filed at 10/20/2020 0619 Gross per 24 hour Intake 2505 ml Output 675 ml Net 1830 ml PHYSICAL EXAM General: Alert, oriented, no apparent distress HENT: Moist oral mucosa with mucositis Skin: No rashes or ulcers Heart: Regular rate and rhythm. Extremities: No significant edema. Lungs: Clear to auscultation bilaterally Abdomen: Soft, active. Generalized tenderness with palpation during pain episodes. Mood: Pleasant, appropriate communication and interaction with staff. DIAGNOSTICS Recent Results (from the past 24 hour(s)) Troponin T, Baseline, 5th gen Collection Time: 10/19/20 11:05 PM Result Value Troponin T, Baseline, 5th gen <6 Lipase Collection Time: 10/19/20 11:36 PM Result Value Lipase, S 8 (L) CBC no call back, reflex T/S HGB <8 Collection Time: 10/19/20 11:41 PM Result Value Hemoglobin 8.5 (L) Hematocrit 26.1 (L) Erythrocytes 3.40 (L) MCV 76.8 (L) RBC Distrib Width 14.5 Platelet Count 246 Leukocytes 3.5 Neutrophils 3.01 Lymphocytes 0.34 (L) Monocytes 0.10 (L) Eosinophils <0.03 Basophils <0.03 Comprehensive Metabolic Panel Collection Time: 10/19/20 11:41 PM Result Value Potassium, S 3.7 Sodium, S 130 (L) Chloride, S 95 (L) Bicarbonate, S 27 Anion Gap 8 Bld Urea Nitrog(BUN), S 13 Creatinine, S 0.87 eGFR-Non Black >90 eGFR-Black >90 Calcium, Total, S 7.8 (L) Glucose, S 128 Protein, Total, S 5.8 (L) Albumin, S 2.6 (L) Aspartate Aminotransferase (AST), S 16 Alkaline Phosphatase, S 98 Alanine Aminotransferase (ALT), S 19 Bilirubin, Total, S 0.7 Magnesium Collection Time: 10/19/20 11:41 PM Result Value Magnesium, S 1.7 Lactate Collection Time: 10/19/20 11:41 PM Result Value Lactate, P 1.2 Troponin T, 2H/6H, 5th Gen Collection Time: 10/20/20 1:06 AM Result Value Troponin T, 2 hr, 5th gen <6 2H Delta 0 2H Delta Interp Not Changing Troponin T, 6 hr, 5th gen CANCELED Hemoglobin Collection Time: 10/20/20 1:06 AM Result Value Hemoglobin 8.5 (L) Type and Screen (with reflex Antibody ID) Collection Time: 10/20/20 1:07 AM Result Value ABORh A Pos Antibody Screen Negative Type & Screen Expiration 10/23/2020 23:59 Testing Location [facility] CBC no call back, reflex T/S HGB <8 Collection Time: 10/20/20 6:10 AM Result Value Hemoglobin 8.7 (L) Hematocrit 27.9 (L) Erythrocytes 3.55 (L) MCV 78.6 RBC Distrib Width 14.6 (H) Platelet Count 271 Leukocytes 4.7 Neutrophils 4.00 Lymphocytes 0.56 (L) Monocytes 0.12 (L) Eosinophils <0.03 Basophils <0.03 Comprehensive Metabolic Panel Collection Time: 10/20/20 6:10 AM Result Value Potassium, S 3.7 Sodium, S 134 (L) Chloride, S 97 (L) Bicarbonate, S 28 Anion Gap 9 Bld Urea Nitrog(BUN), S 10 Creatinine, S 0.90 eGFR-Non Black >90 eGFR-Black >90 Calcium, Total, S 8.0 (L) Glucose, S 91 Protein, Total, S 5.7 (L) Albumin, S 2.6 (L) Aspartate Aminotransferase (AST), S 18 Alkaline Phosphatase, S 105 Alanine Aminotransferase (ALT), S 18 Bilirubin, Total, S 0.9 ASSESSMENT / PLAN Mr. Adam Campbell is a 55 y.o. male with a history of pancreatic cancer status post common bile ductstenting on July 29, 2020 and status post ERCP on 08/04/2020. 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 He was treated with a 6 week duration of ceftriaxone. This was scheduled to be completed on 09/24/2019. However, on 09/09/2020 he underwent an MRCP that showed a decrease in the size of the peripancreatic fluid collections, stable thrombus of the left portal vein, and no significant intra have headache biliary ductal dilatation so the antibiotics were switched to ertapenem. He presentedto the hospital on 09/12/2020 and was found to have extensive necrotizing peripancreatic fluid collections with foci of gas. He does endorse night sweats and a fever of 101.8. He is having pain in the upper central abdominal area which he is rating a 6/10. He has no chills, shortness of breath, wheezing, cough, nausea and vomiting. ?? #1 Malignant Neoplasm Of Pancreas (HCC) - Patient has received his 1st cycle of chemotherapy on 10/16 which included albumin bound paclitaxel and gemcitabine. ?? #2 Fever #3 Hx of extensive residual multiloculated fluid collections in the pancreas -CT abd/pelvis at OSH on 10/17 showed extensive residual multiloculated fluid collections in the pancreas bed/left upper quadrant are slightly decreased in size compared imaging on 10/05. - Infectious disease following, recommend discontinuing antibiotics given stable fluid collections on imaging and negative blood cultures ([place] [facility] reports blood cultures obtained on 10/16 have NTGD). Will discontinue zosyn and monitor for fever/worsening symptoms. - Blood cultures drawn 10/18, NGTD. ?? #4 Abdominal pain - Dilaudid 2-4 mg p.o. q.4 hours p.r.n. - or Dilaudid 0.2 mg IV q.2 hours p.r.n. - Used 15mg of dilaudid yesterday. Pain is still significant when up ambulating. Patient not eligible for a celiac plexus block due to recent necrotizing pancreatitis and ongoing fluid collections. Palliative medicine consulted today. #5 Constipation, could likely be contributing to abdominal cramping - Started Miralax and senokot-s scheduled - two dose of lactulose and bisacodyl suppository given yesterday. - Will give another bisacodyl suppository today as well as a tap water enema. #6 Tachycardia - Ongoing tachycardia was evaluated with an ECG which showed evidence of possible acute WV/STEMI with ST elevation. Troponins were drawn and a repeat ECG was ordered. The repeat ECG no longer showed evidence of WV. Impression was sinus tachycardia with nonspecific ST and T wave abnormality. Troponin at baseline was <6. Repeat was <6. Will obtain ECHO today to r/o cardiac dysfunction. - Etiology: pain vs. dehydration vs. infection - Patient is afebrile, repeat lactate was normal, BCx NGTD - Will provide IVFs today and reassess. - Palliative medicine consult for pain management ?? #7 Anemia - Lab work overnight showed a hgb of 8.5. This had previously been 10.7 prior to chemotherapy on 10/16. This is likely chemotherapy-induced. No obvious signs of bleeding or worsening abdominal pain. A recheck was performed 5 hours later. This was stable at 8.7. Will repeat hgb this afternoon. Monitor for signs of bleeding/worsening abdominal symptoms in the setting of recent necrotizing pancreatitis inDecember. F: Encourage oral intake. IV bolus today given poor oral intake and constipation. E: Will monitor and replete as necessary N: General diet ?? VTE prophylaxis: Patient is therapeutically anticoagulated ECOG performance status: 1 Code status: Full code as per discussion on admission Discharge plan: 1-2 days. HSC. ?? RAL COUNSELOR Associated attestation - Billie Shaw M.D. - 10/20/2020 6:10 PM FUNERAL COUNSELOR Medical oncology supervisory note I saw and evaluated the patient, participating in the patel portions of the service. I reviewed Jacquie Hodgson's note. I agree with the findings and plan. Assessment and Plan #1 Malignant Neoplasm Of Pancreas (HCC) #2 Fever #3 Hx of extensive residual multiloculated fluid collections in the pancreas #4 Abdominal pain #5 Constipation Patient experience tachycardia and worsening pain overnight. EKG initially suggested possible ischemia, but subsequent EKGs showed sinus tachycardia. Serial troponins were also negative. He was given IV fluids, an echocardiogram which was checked which was okay. We did consult the Pain team for consideration of a celiac plexus block, however given the fluid collections from the necrotizing pancreatitis, it was felt to be fairly high risk to perform the procedure. We are going to see if targeting neuropathic pain with pregabalin will add any additional benefit for the patient. We are holding off on steroids given his recent significant infection, but do agree that there is likely a component of inflammation that is continuing to contribute to the patient's pain. We also think that there is a largedegree of constipation that is contributing and we are encouraging the patient to continue stool softeners from above as well as an enema from below to see if leaking get his bowels moving. Julieth Foster M.B., B.Ch., Ph.D. - 10/19/2020 11:57 PM CST Called by nursing staff that patient's MEWS had increased to 4 for last 2 measurements. It had been 2 earlier in the day. Primarily was driven by tachycardia and blood pressure. Patient is in hospital with at pancreatic cancer. He is on chemotherapy with gemcitabine and paclitaxel. This was last dosed on Monday. He presented with acute worsening of abdominal pain which is severe. He has had necrotizing pancreatitis status post 6 weeks of IV antibiotics, has also had strep anginosus bloodstream infection complicated by septic portal pain vein thrombus. Id reviewed him today and stopped antibiotics. I ordered an EKG to assess whether his tachycardia was sinus or not. Subsequently I got a call from the monitoring lab that there was concern for ST elevation in his V2 and V3 leads. I came immediatelyto assess the patient. He had no chest pain or shortness of breath or dizziness or lightheadedness. He has nausea but he has been nauseated since his chemotherapy. His pain is across his lower abdomen and crampy in nature and exacerbated by movement. Had BM earlier today, no melena or brissa blood Patient has no cardiac risk factors specifically he does not smoke, has no family history of premature coronary disease. He is not diabetic. He is not hypertensive. He does not have high cholesterol that he is aware of. Repeat EKG at 23.14 and 2316 is not concerning for ST elevation per review and my discussions with CV monitoring lab. Patient's repeat blood pressure is 105 heart rate was in the 120s to 130s and regular. He has decreased air entry in his left lung base. Abdomen was soft at with diffuse tenderness no definite rebound bowel sounds are diminished but present. Stat troponin was less than 6. Serial troponins pending Tachycardia is sinus probably related to his worsening pain. He does not have evidence of acute cardiac injury at present. He is already on anticoagulation with enoxaparin therapeutic dosing for his portal vein thrombosis. Will repeat abdominal labs to include CBC lactate CMP lipase Treat his pain he has oral Dilaudid IV Dilaudid Patient himself thinks his pain may relate to muscle we will try lidocaine patch LR 500 over 1 hr bolus Trend troponins Will order an echocardiogram for the morning I did review the EKGs with the [facility] cardiology consultants who was in agreement with the approach 2 hour troponin no delta < 6 Lactate 1.2. hepatic function OK Note Hb was 8.5, had been 10.7 am 2/5 before chemo but nothing in between Both chemo agents can cause anemia. He is at risk of bleeding also from pancreatitis, chemo and AC Repeat Hb 8.5. Remains HD stable albeit tachycardic which is multifactorial, 2/2 pain, anemia, poss SIRS Will do am labs at 7am and if Hb decreases (or HD instability) he will need stat CT abdomen Also consider Pain/Palliative consult might benefit from nerve block for pain RAL COUNSELOR Bárbara Quintana RDN, TESHA - 10/19/2020 4:15 PM CST Clinical Nutrition: Initial Assessment RECOMMENDATIONS REQUIRING MD/PROVIDER ORDER - No changes at this time; continue current nutrition orders - Consider multivitamin with minerals when able to tolerate more oral intake. For questions about patient's nutritional care please contact pager [phone] on weekdays or [phone] on weekends/holidays. NUTRITION ASSESSMENT: Mr. Campbell is a 55 y.o. male who was admitted for abdominal pain. Pt with pancreatic cancer status post common bile duct stenting on 07/29/2020 and ERCP 08/04/2020. 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 09/09/2020 he underwent an MRCP that showed a decrease in the size of the peripancreatic fluid collections, stable thrombus of the left portal vein 09/12/2020-found to have extensive necrotizing peripancreatic fluid collections with foci of gas. started chemotherapy 10/16 which included albumin bound paclitaxel and gemcitabine followed by fevers & abdominal pain. CT abdomen 10/17: necrotizing pancreatitis with multiple upper abdominal fluid collections and gastric varices. Requested to see patient for evaluation of: positive nursing baseline nutrition screen with a MST score of 2 or greater. MST 5. MALNUTRITION CRITERIA: Nutrition focused physical exam completed by this auto service writer today and revealed the following: Recent Oral Intake Average estimated Intake: Less than or equal to 75% for 1 or more months Weight Changes Weight Loss: >7.5% in 3 months Body Fat Body Fat: Moderate Loss Orbital [...] (Gastrocnemious Muscle) : Well-developed bulb of muscle Fluid Accumulation: (peripancreatic fluid collections per CT 10/17) Edema: Absent Nutritional Status: Severe Malnutrition Malnutrition in the Context of: Chronic Illness Current nutrition orders: Diet: Regular Current Nutrition: Pt is eating about 50% of meals with last evening 1/2 grilled cheese, 1/2 bowl of tomato soup. Intake today at breakfast was 1/2 of omelet, breakfast potatoes and Gatorade. Lunch was 1/2 bowl of chicken noodle soup, 2 oz ice cream, 2 bites of a sugar cookie. Pt with more abdominal pain but unsure the reason. Pt states working on BM today with suppository, MiraLAX and senokot. Nutrition History: Pt dislikes Boost, Ensure and breeze nutrition supplements. Pt uses fairlife milk at home. Pt chooses more low fat foods and avoids greasy foods. Pt does eat soups and sandwiches. ANTHROPOMETRICS: Height: 179.7 cm Admission Weight: 72.8 kg (10/18/2020) Current Weight: 72.8 kg [place] Body Weight (Calculated) : 77.5 kg BMI (Calculated): 22.5 kg/m?? Weight change since admission: 0 kg Weight Change History: weight is down 9.6 kg or 13.2% in the last 2 months with 82.4 kg (08/12/2020);76.2 kg (09/12/2020); 71.2 kg(10/01/2020) ESTIMATED NEEDS: Total Calorie Needs: 8480-5584 calories/day Method to Estimate Energy Needs: Ramirez-Higgins (Basal to Basal + 20%) Weight Used for Equation Calculations: 72.8 kg Total Protein Needs: 73 - 87 grams/day Method to Estimate Protein Needs (g/kg): 1 - 1.2 gm/kg Weight Used to Calculate Protein Needs (Kg): 72.8 kg NUTRITION DIAGNOSIS: Inadequate oral intake related to decreased appetite, abdominal pain as evidenced by weight loss NUTRITION PLAN/MONITORING/EVALUATION: Interventions: Increase nutrient intake with small, frequent meals and/or snacks, Provide education to increase nutrition knowledge(discused high protein foods. Provided pt with snack, smoothie shake menus.). Monitoring: Meals/Supplement Intake, Weight Status, Pertinent Labs . . RAL COUNSELOR Jacquie Hodgson APRN, C.N.[place], M.S.NRiaz - 10/19/2020 3:52 PM CST Add diagnosis: Severe malnutrition - In the context of chronic illness - Nutrition consulted. Discussed high protein foods. Provided pt with snack options and smoothie shake menus. - Monitoring: Meals/Supplement Intake, Weight Status, Pertinent Labs RAL COUNSELOR Renetta Tenorio M.D. - 10/19/2020 9:00 AM CST [facility] Consulting Service Progress Note SUBJECTIVE REASON FOR CONSULTATION [facility] service pager at [phone] is following Adam Campbell for fever EVENTS OVER THE PAST 24 HOURS: afebrile since admission, called the outside lab blood cultures from 10/18 at 10:00 am are NGTD. He is complaining of abdominal pain described as cramping requiring dilaudid, but CT A/P noted to have improved fluid collections with no air or signs of infection. OBJECTIVE PHYSICAL EXAMINATION VITAL SIGNS I have reviewed the current vital sign data as applicable. Cardiovascular Rate and Rhythm: Normal rate and regular rhythm. Pulmonary Breath sounds: Normal breath sounds. No wheezing. Abdominal General: Bowel sounds are normal. Palpations: Abdomen is soft. Tenderness: There is no abdominal tenderness. Neurological Mental Status: He is alert. DIAGNOSTICS I have reviewed diagnostics. Studies of note include: Results from last 7 days Lab Units 10/16/20 0759 WBC x10(9)/L 10.7* HEMOGLOBIN g/dL 10.7* PLATELETS AUTO x10(9)/L 399* Results from last 7 days Lab Units 10/16/20 0759 SODIUM P mmol/L 137 CREATININE P mg/dL 0.88 BILIRUBIN TOTAL mg/dL 0.5 Estimated Creatinine Clearance: 96.5 mL/min (by C-G formula based on SCr of 0.88 mg/dL). No results found for: QTCINT, CODEDDIAG ASSESSMENT / PLAN 1. Fever, resolved 2. History of necrotizing pancreatitis s/p 6 weeks of IV antibiotic, last dose on 09/23 3. Pancreatitis adenocarcinoma on cycle 1 gemcitabine/paclitaxel chemotherapy 4. History of strep anginosus bloodstream infection complicated by septic portal vein thrombus. DISCUSSION Mrs. Campbell is a 55 year old man who presented with fever shortly after starting chemotherapy with blood cultures on 10/18 with no growth to date at outside institution and repeated here as well. CT A/Pthat was read here, noted slight improvement of fluid collections with no signs of infection including air. Patient has been afebrile, and hemodynamically stable. At this time, we recommend discontinuation of antibiotic therapy, no role for suppressive antibiotic therapy since there are no signs of infection of intra abdominal fluid collection. His abdominal pain may be multifactorial in the setting of constipation. RECOMMENDATIONS: 1. Discontinue IV pip/josef 2. Observe him off antibiotic therapy 3. Please obtain LFTs 4. We will sign off. Treatment plan reviewed with Mr. Campbell, who expressed understanding. All questions answered to patient's satisfaction. Discussed with Dr. Joseph. We will sign off. Please page [facility] service pager at [phone] with any questions. Counseling was provided [id number] at bedside regarding the plan of care as stated above. I personally spent over half of a total 20 minutes in counseling and coordination of care as documented above. Renetta Urban M.D. RAL COUNSELOR Associated attestation - Lizette Joseph M.D. - 10/19/2020 1:44 PM FUNERAL COUNSELOR I saw and evaluated the patient, participating in the patel portions of the service. I reviewed Renetta Urban MD's note. I reviewed the documentation, laboratory studies, imaging and microbiology results. I agree with the findings and plan as documented 10/19/20. Jacquie Hodgson APRN, C.N.P., M.S.N. - 10/19/2020 7:17 AM CST SUBJECTIVE Patient is doing okay today. No acute events overnight. Patient continues to have intermittent, sharp/cramping abdominal pain. Pain is band-like across the abdomen. Pain is exacerbated with ambulation.Pain usually subsides with rest. Patient states it can take up to 30 minutes for pain to resolve. Patient reports no bowel movement for greater than 2 days. Patient is still passing gas. No fevers, chills and body aches. Denies nausea and vomiting. I have reviewed the current medication list. OBJECTIVE VITAL SIGNS Temperature: [36.4 ??C-37.8 ??C] 36.4 ??C Resp Rate: [14-18] 16 Blood Pressure: (86-107)/(55-70) 99/62 SpO2: [95 %-99 %] 97 % Pulse Rate: [105-132] 105 Intake/Output Last 24 Hours: Intake/Output Summary (Last 24 hours) at 10/19/2020 0717 Last data filed at 10/19/2020 0624 Gross per 24 hour Intake 200 ml Output 1150 ml Net -950 ml PHYSICAL EXAM General: Alert, oriented, no apparent distress HENT: Moist oral mucosa with mucositis Skin: No rashes or ulcers Heart: Regular rate and rhythm. Extremities: No significant edema. Lungs: Clear to auscultation bilaterally Abdomen: Soft, active. Generalized tenderness with palpation during pain episodes. Mood: Pleasant, appropriate communication and interaction with staff. DIAGNOSTICS No results found for this or any previous visit (from the past 24 hour(s)). ASSESSMENT / PLAN Mr. Adam Campbell is a 55 y.o. male with a history of pancreatic cancer status post common bile ductstenting on July 29, 2020 and status post ERCP on 08/04/2020. 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 He was treated with a 6 week duration of ceftriaxone. This was scheduled to be completed on 09/24/2019. However, on 09/09/2020 he underwent an MRCP that showed a decrease in the size of the peripancreatic fluid collections, stable thrombus of the left portal vein, and no significant intra have headache biliary ductal dilatation so the antibiotics were switched to ertapenem. He presentedto the hospital on 09/12/2020 and was found to have extensive necrotizing peripancreatic fluid collections with foci of gas. He does endorse night sweats and a fever of 101.8. He is having pain in the upper central abdominal area which he is rating a 6/10. He has no chills, shortness of breath, wheezing, cough, nausea and vomiting. ?? #1 Malignant Neoplasm Of Pancreas (HCC) - patient has received his 1st cycle of chemotherapy on 10/16 which included albumin bound paclitaxel and gemcitabine. ?? #2 Fever #3 Hx of extensive residual multiloculated fluid collections in the pancreas -CT abd/pelvis at OSH on 10/17 showed extensive residual multiloculated fluid collections in the pancreas bed/left upper quadrant are slightly decreased in size compared imaging on 10/05. - Infectious disease following, recommend discontinuing antibiotics given stable fluid collections on imaging and negative blood cultures ([place] ED reports blood cultures obtained on 10/16 have NTGD). Will discontinue zosyn and monitor for fever/worsening symptoms. - F/u blood cultures drawn here on 10/18 ?? #4 Abdominal pain - Dilaudid 3 mg p.o. q.3 hours p.r.n. - or Dilaudid 0.6 mg IV q.3 hours p.r.n. #5 Constipation, could likely be contributing to abdominal cramping - Started Miralax and senokot-s scheduled - Bisacodyl suppository today ? F: Encourage oral intake E: Will monitor and replete as necessary N: General diet ?? VTE prophylaxis: Patient is therapeutically anticoagulated ECOG performance status: 1 Code status: Full code as per discussion on admission Discharge plan: 1-2 days. HSC. ?? RAL COUNSELOR Associated attestation - Billie Shaw M.D. - 10/19/2020 3:52 PM FUNERAL COUNSELOR Medical oncology supervisory note I saw and evaluated the patient, participating in the patel portions of the service. I reviewed Jacquie Hodgson's note. I agree with the findings and plan. Assessment and Plan #1 Malignant Neoplasm Of Pancreas (HCC) #2 Fever #3 Hx of extensive residual multiloculated fluid collections in the pancreas #4 Abdominal pain #5 Constipation Patient was started on IV antibiotics due to presumed recurrence of his peripancreatic infection. However given the imaging studies they felt this was unlikely due to worsening infection and recommended discontinuing antibiotics. We will continue a good bowel regimen to try to help improve patient's co nstipation which will hopefully help with the pain as well. documented in this encounter H&P Notes Brian Maguire APRN, CRiazNRiazP. - 10/18/2020 1:10 PM CST SUBJECTIVE At this time the patient denies any nausea or vomiting. He has no chills, shortness of breath, wheezing or cough. He has no swelling, numbness or tingling. He does endorse night sweats and fevers temp max is 101.8. He is having pain in the upper central abdominal area which he is rating a 6/10. LOCAL ONCOLOGIST No care sales floor team member to display PRIMARY ALLEN ONCOLOGIST Deborah Murray M.B.B.S. CHIEF COMPLAINT Patient is a 55 y.o. male who presents with a history of pancreatic cancer status post common bile duct stenting on July 29, 2020 and status post ERCP on 08/04/2020. 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 He was treated with a 6 week duration of ceftriaxone. This was scheduled to be completed on 09/24/2019. However on 09/09/2020 he underwent an MRCP that showed a decrease in the size of the peripancreatic fluid collections, stable thrombus of the left portal vein, and no significant intra have headache biliary ductal dilatation so the antibiotics were switched to ertapenem. He presented to the hospital on 09/12/2020 and was found to have extensive necrotizing peripancreatic fluid collections with foci of gas. He was switched for short period of time to Zosyn and then switch back to ertapenem and discharged. He was seen on Monday by Dr. Murray his medical oncologist, he started chemotherapy which included albumin bound paclitaxel and gemcitabine. He tolerated the treatment well. Monday night he woke up to a fever of 101.8. He presented to the emergency department in in [place]. Hehad blood cultures drawn while he was there and then was discharged to home. The following morning he woke up with pain that he rated 12/10. He spoke with the oncologist on-call here at [place] who recommended he be seen in the local emergency room. They admitted him to the hospital in [place] and thepatient requested to be transferred to [place]. Patient now presents to [facility] with central abdominal pain not well controlled on fentanyl for his home oxycodone. He has not been febrile here. We will initiate treatment with Zosyn for potential recurrence of his abscess and consult Infectious Disease. Will obtain blood cultures per recommendations of Infectious Disease. And treat his pain. HISTORY OF PRESENT ILLNESS Oncology History Oncology [...] PACLitaxel Protein - Bound Start Date: 10/16/2020 I have reviewed and updated the: Past Medical History: Diagnosis Date ??? Adjustment [...] level: 11th grade Occupational History ??? 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 Financial [...] times a week Gets together: Never Attends sabianist service: Never Active member of club or [...] to Encounter Medication Sig Last Dose ??? acetaminophen (TYLENOL) 500 mg tablet Take 1 tablet (500 mg total) by mouth every 6 (six) hours. ??? enoxaparin (LOVENOX) 80 mg/0.8 mL injection Inject 0.8 mL (80 mg total) under the skin 2 (two) times a day. ??? ondansetron (ZOFRAN) 8 mg tablet Take 1 tablet (8 mg total) by mouth every 8 (eight) hours as needed for nausea or vomiting. ??? oxyCODONE (ROXICODONE) 5 mg immediate release tablet Take 1 tablet (5 mg total) by mouth every 6(six) hours as needed for pain Indication: Chronic Pain/Nonacute Pain. ??? pantoprazole (PROTONIX) 40 mg EC tablet Take 1 tablet (40 mg total) by mouth every morning before breakfast. ??? prochlorperazine (COMPAZINE) 10 mg tablet Take 1 tablet (10 mg total) by mouth every 6 (six) hours as needed for nausea or vomiting. ??? sennosides (SENOKOT) 8.6 mg tablet Take 8.6 mg by mouth daily. REVIEW OF SYMPTOMS As above OBJECTIVE VITAL SIGNS Temperature: [36.7 ??C-37.8 ??C] 36.7 ??C Resp Rate: [16-18] 16 Blood Pressure: (106-107)/(67-70) 106/70 SpO2: [95 %-99 %] 95 % Height: [179.7 cm] 179.7 cm Weight: [72.8 kg] 72.8 kg BSA (Calculated - sq m): [1.9 sq meters] 1.9 sq meters BMI (Calculated): [22.5 kg/m??] 22.5 kg/m?? Pulse Rate: [128-132] 128 PHYSICAL EXAM Constitutional Appearance: Normal appearance. HENT Head: Normocephalic and atraumatic. Nose: Nose normal. Mouth/Throat: Mouth: Mucous membranes are dry. Eyes Pupils: Pupils are equal, round, and reactive to light. Neck Musculoskeletal: Normal range of motion and neck supple. Cardiovascular Rate and Rhythm: Normal rate and regular rhythm. Pulses: Normal pulses. Heart sounds: Normal heart sounds. Pulmonary Effort: Pulmonary effort is normal. Breath sounds: Normal breath sounds. Abdominal Palpations: Abdomen is soft. Tenderness: There is guarding. Musculoskeletal Normal range of motion. Skin General: Skin is warm and dry. Capillary Refill: Capillary refill takes less than 2 seconds. Neurological General: No focal deficit present. Mental Status: He is alert and oriented to person, place, and time. Psychiatric Mood and Affect: Mood normal. DIAGNOSTICS I have reviewed the labs and diagnostics from last 3 months. ASSESSMENT / PLAN Patient now presents to [facility] with central abdominal pain not well controlled on fentanyl forhis home oxycodone. He has not been febrile here. We will initiate treatment with Zosyn for potential recurrence of his abscess and consult Infectious Disease. Will obtain blood cultures per recommendations of Infectious Disease and treat his pain. #1 Malignant Neoplasm Of Pancreas (HCC) - patient has received his 1st cycle of chemotherapy on 10/16 which included albumin bound paclitaxel and gemcitabine. #2 Potential pancreatitis -will have CT scan from the outside facility read here at [facility] - consult Infectious Disease - per recommendations of Infectious Disease keep the patient on Zosyn - attain blood culture if blood cultures remain negative after 48 hours we could potentially discontinue antibiotics #3 Pain - Dilaudid 3 mg p.o. q.3 hours p.r.n. - or Dilaudid 0.6 mg IV q.3 hours p.r.n. F: Encourage oral intake E: Will monitor and replete as necessary N: General diet VTE prophylaxis: Patient is therapeutically anticoagulated ECOG performance status: 1 Code status: Full code as per discussion on admission Discharge plan: Pending RAL COUNSELOR Associated attestation - Billie Shaw M.D. - 10/19/2020 3:49 PM FUNERAL COUNSELOR Medical oncology supervisory note I had the opportunity to see and evaluate the patient with the Medical Oncology 1 team please see Brian Maguire's admission note for full details on the history of present illness, past medical history, social history, family history, physical exam, review of systems, and assessment and plan. I agree with her note. Assessment/Plan #1 Pancreatic cancer #2 History of recently treated peripancreatic abscesses #3 Abdominal pain #4 Fever On admission patient was started on Zosyn given his history of peripancreatic abscesses. Patient wasadministered pain control as needed. Infectious Disease was consulted for their recommendations the antibiotic management. documented in this encounter Consult Notes Albert Garcia M.D. - 10/21/2020 6:04 PM CST SUBJECTIVE REASON FOR CONSULT Malignant neoplasm of pancreas. REFERRAL SOURCE [facility] Oncology [facility]. I have had the privilege to review the history, physical examination, findings, and management plansas documented by Dr. Miranda So in her note dated today. ASSESSMENT / PLAN #1 Pancreatic cancer #2 Resolving pancreatitis #3 Sever constipation Briefly, a 55-year-old man diagnosed with pancreatic adenocarcinoma just 3 months ago when he developed jaundice and abdominal pain. He underwent ERCP with sphincterotomy and common bile duct stenting,but unfortunately, he developed severe post ERCP pancreatitis complicated by necrosis and infected fluid collections and portal vein thrombosis. ERCP was repeated 3 weeks ago and common bile duct stenosis due to tissue ingrowth was identified and an additional bare metal stent was placed into the common bile duct with excellent drainage and complete resolution of cholestasis by laboratory criteria. Antibiotics have been discontinued 1 month ago. More recently, he received chemotherapy and subsequently experienced a fever and mid to lower abdominal pain. CT imaging at that time again demonstrates multiple fluid collections that are improved compared to previous and nothing concerning for infection.In hospital, maximum recorded temperature has been 37.9 degrees Celsius, and cultures have been negat lucille, and white blood cell count has remained normal. The patient reports significant constipation with no bowel movement in the last 6 days, and there was substantial colonic stool burden on most recent imaging of October 17. A variety of enemas have been administered without success. In this setting, suggest more aggressive laxative programs such as 10 ounces of magnesium citrate, and if not sufficient, then add bisacodyl 15 mg by mouth. If he has a good result with this, then I would suggest maintenance regimen with 17 g of polyethylene glycol daily. We could also consider addition of peripheral mu- opioid receptor antagonist such as naloxegol or methylnaltrexone. Albert Garcia M.D. CT CT Job ID: [id number] RAL COUNSELOR Miranda So M.D. - 10/21/2020 7:57 AM CSTAssociated Order(s): IP CONSULT TO GASTROENTEROLOGY Gastroenterology Progress Note SUBJECTIVE CHIEF COMPLAINT Mr. Adam Campbell is a 55 y.o. male who presents with fever and abdominal pain. HISTORY OF PRESENT ILLNESS This is a 55-year-old gentleman who was transferred to [place] for fever and abdominal pain. His past medical history is significant for pancreatic adenocarcinoma with associated common bile duct stricture status post ERCP and bare metal stent on 07/29/20, complicated by development of post ERCP necrotizi ng pancreatitis with associated fluid collections and subsequent infection, and portal vein thrombosis on anticoagulation. Gastroenterology has been consulted for management of his acute on chronic abdominal pain, with stable peripancreatic fluid. He has an extensive GI history most recently outlined in the note from Dr. Belia Taylor on 10/01/20. Briefly, in July 2020 he had originally presented to an OSH with abdominal pain and jaundice, with a pancreatic head mass seen on CT. He had an ERCP performed on 07/29/2020 demonstrated a biliary stricture in the common bile duct. Sphincterotomy was performed, with placement of a single bare metalstent in the CBD. EUS sampled the pancreatic head mass, which demonstrated adenocarcinoma. Following the ERCP, he developed pancreatitis with abdominal pain and lipase of 1300. With rising bilirubin postprocedure, he underwent a repeat ERCP on 08/04/2020 which found that the biliary stent was stenosed, with sludge and stone, which was removed and re-dilated. He was transferred to [facility] in August with worsening abdominal pain and fever, with concernfor cholangitis. A CT scan at the time had demonstrated a patent stent, but development of multiple new peripancreatic and upper abdominal fluid collections in addition to new left and main portal veinnonocclusive thrombosis, for which he was placed on anticoagulation. He was found to have Streptococcus anginosus bacteremia with some concern for septic phlebitis from the portal vein thrombosis, for which he was initiated on a planned 4-6 weeks of antibiotics, which unfortunately caused him to develop some liver toxicity from use of ceftriaxone. He was readmitted in early September with new peripancreatic abscess with air, concerning for infectednecrotizing process, he was switched switched to ertapenem and completed antibiotics, off since since 09/23/2020. At his last hospitalization in September 2020, he was noted to have rising bilirubin and liver enzymes. There was some concern there could have been blockage of the common bile duct stent, and a repeat ERCP was done on 10/01, which demonstrated a tight biliary stricture in the upper common bile duct cons istent with tissue ingrowth. A bare metal stent was placed in the previous existing stents, with improvement in his liver function. It appears that while he may have been a candidate for neoadjuvant chemotherapy, radiation and possible surgical resection (tumor appears borderline resectable), his development of pancreatitis and peripancreatic necrosis has delayed this process for him. The decision has been made in the past to hold off on EUS drainage of the fluid collection and wait for the necrosis to organize. This admission, he was transferred from [place] on 10/18 after presenting to the ED again with abdominal pain and fever. He had recently started gemcitabine and paclitaxel on 10/16 and spiked a fever the afternoon after getting chemo in addition to having bilateral lower quadrant/periumbilical abdominal pain. CT abdomen pelvis was obtained outside on 10/17 and reread here, which demonstrates multiple fluid collections, in the pancreas bed in/left upper quadrant, which are decreased in size compared to 10/05, no concern for acute infection. Liver function tests look normal in this gentleman on admission, with total bili of 0.7, ALT of 19, AST of 16. ID had originally recommended Zosyn due to concern that there was some intra-abdominal/infection again of the pancreatic fluid collections, but this was stopped after 48 hours with no evidence of infection, cultures negative so far. He has since spiked a low-grade temperature at 37.9?? on 10/20, otherwise afebrile. It should be noted that he does have significant constipation and has not had a normal bowel movement in over 6 days despite efforts from the primary team including multiple forms of enemas. I have reviewed and updated the following: [...] level: 11th grade Occupational History ??? 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 Financial [...] times a week Gets together: Never Attends sabianist service: Never Active member of club or [...] to Encounter Medication Sig Last Dose ??? acetaminophen (TYLENOL) 500 mg tablet Take 1 tablet (500 mg total) by mouth every 6 (six) hours. ??? enoxaparin (LOVENOX) 80 mg/0.8 mL injection Inject 0.8 mL (80 mg total) under the skin 2 (two) times a day. ??? ondansetron (ZOFRAN) 8 mg tablet Take 1 tablet (8 mg total) by mouth every 8 (eight) hours as needed for nausea or vomiting. ??? oxyCODONE (ROXICODONE) 5 mg immediate release tablet Take 1 tablet (5 mg total) by mouth every 6(six) hours as needed for pain Indication: Chronic Pain/Nonacute Pain. ??? pantoprazole (PROTONIX) 40 mg EC tablet Take 1 tablet (40 mg total) by mouth every morning before breakfast. ??? prochlorperazine (COMPAZINE) 10 mg tablet Take 1 tablet (10 mg total) by mouth every 6 (six) hours as needed for nausea or vomiting. ??? sennosides (SENOKOT) 8.6 mg tablet Take 8.6 mg by mouth daily. REVIEW OF SYSTEMS Pertinent items are noted in HPI; all other review of systems was negative. OBJECTIVE VITAL SIGNS Temperature: [36.3 ??C-37.9 ??C] 36.3 ??C Resp Rate: [18-22] 20 Blood Pressure: (90-112)/(51-68) 91/65 SpO2: [87 %-96 %] 95 % Pulse Rate: [58-140] 86 PHYSICAL EXAM: General: Alert and oriented, in no acute distress, sitting comfortably. HEENT: Normocephalic atraumatic. Sclera anicteric. Cardiovascular: Regular rate. Lungs: Breathing comfortably on room air. Abdomen: Non-distended. Extremities: No edema. Skin: Warm, dry. No visualized lesions. Psych: Alert, pleasant, and cooperative. DIAGNOSTICS I have reviewed the labs from admission. Recent Labs 10/21/20 0436 10/20/20 0610 10/20/20 0610 NA 129 L -- 134 L CL 95 L -- 97 L BICARB 27 -- 28 MG 1.6 L -- -- CALCIUM 8.0 L -- 8.0 L BUN 12 -- 10 CREATININE 0.94 -- 0.90 GLUCOSE 118 -- 91 ALBUMIN -- -- 2.6 L HGB 8.1 L < > 8.7 L HCT 25.7 L -- 27.9 L WBC 6.4 -- 4.7 PLT 215 -- 271 < > = values in this interval not displayed. Ecg 12 Lead Result Date: 10/21/2020 Sinus rhythm with 1st degree A-V block Otherwise normal ECG When compared with ECG of 19-OCT-2020 23:16, Nonspecific T wave abnormality no longer evident in Anterolateral leads Reviewed by HAROON López Ecg 12 Lead Result Date: 10/20/[address] and T wave abnormality When compared with ECG of 19-OCT-2020 22:47, ST no longer elevated in Anterior leads Reviewed by HAROON Parks Ecg 12 Lead Result Date: 10/20/[address] elevation consider anterior injury or acute infarct ACUTE [place] / STEMI Nonspecific T wave abnormality When compared with ECG of 01-OCT-2020 01:56, ST elevation now present in Anterior leads Emergent Criteria: Communicated to Julieth Foster on October 19 @ 23:[address] Elevation in V2 & V3 verses movement. Reviewed by HAROON Parks Echo Transthoracic (TTE) Final Result Bedside echo performed [facility]. Subcostal imaging significantly limited due to extreme patient discomfort and excessive gas in the abdomen. Intravenous Lumason ultrasound enhancement agent(s) administered to enhance endocardial border definition. LEFT VENTRICLE: Normal left ventricular chamber size. Normal left ventricular wall thickness. Calculated 2-D biplane volumetric left ventricular ejection fraction 61 %. Left ventricular strain assessment was performed but not reported based on damage inside adjuster's judgment. No regional wall motion abnormalities. Indeterminate left ventricular diastolic function. RIGHT VENTRICLE: Borderline enlarged right ventricular chamber size. Normal right ventricular systolic function. Estimated right ventricular systolic pressure 25 mmHg (systolic blood pressure 107 mmHg). ATRIA: Normal left atrial size. Left atrial volume index 30 ml/m^2. Normal right atrial size by visual estimate. CARDIAC VALVES: Trileaflet aortic valve. Thickened aortic valve. No aortic valve regurgitation. Thickened mitral valve. Mild-moderate mitral valve regurgitation. Normal pulmonary valve. Increased pulmonary valve systolic velocities. Mild pulmonary valve regurgitation. Normal tricuspid valve. Trivial tricuspid valve regurgitation. OTHER ECHO FINDINGS: Normal inferior vena cava size with normal inspiratory collapse (>50%). Normal ascending aorta diameter. Abdominal aorta not visualized. Imaging inadequate for detection of atrial level shunt by color flow imaging. No intracardiac mass or thrombus, but the left atrial appendage cannot be visualized adequately with transthoracic echo to exclude thrombus in this location. Small circumferential pericardial effusion. For the complete report, see the Order-Level Documents. Interpretation of Outside CT Abdomen and or Pelvis Final Result Extensive residual multiloculated fluid collections in the pancreas bed/left upper quadrant are slightly decreased in size compared to recent prior exam. ASSESSMENT / PLAN This is a 55-year-old gentleman who was transferred to [place] for fever and abdominal pain. 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 # Necrotizing pancreatitis w/ fluid collections, improving # Pancreatic adenocarcinoma # Malignant biliary stenosis s/p CBD stents # Bilateral lower quadrant abdominal pain # Constipation We are being consulted for this patient's abdominal pain, and the question of intervention on his necrotizing pancreatitis. Based on the CT scan, the fluid collections looks stable/improved, and no need concern for new infection; the patient has been taken off of Zosyn. White count looks okay, liver function is also normal. At this point, it does not appear that he needs acute intervention for the fluid collections. We do wonder how much of his lower for her abdominal pain is related to his constipation, and we would recommend improving this first to help with his abdominal pain. As for the question of use of pancreatic enzymes, there is not significant evidence for pancreatic insufficiency at this time and we donot feel strongly for starting this, however it would be okay to try pancreatic enzymes if the team would like with meals. Recommendations: 1. Aggressive bowel regimen, recommend trial of magnesium citrate to help with constipation and abdominal discomfort. 2. No indication for other intervention at this time. 3. OK to trial Creon TID with meals, do not feel strongly for this. Patient was seen under the supervision of Dr. Garcia. We will continue to follow. Please contact ourservice pager at [phone] with any questions or concerns. Miranda So MD PGY-2 Department of Internal Medicine Pager [phone] RAL COUNSELOR Jewel Romeo M.D. - 10/20/2020 3:21 PM CST Images from the original note were not included. [facility] Palliative Medicine Physician Attestation I have seen and evaluated the patient along with Dr. Casandra Julio, Hospice and Palliative Medicine Fellow. I have reviewed the pertinent history and discussed the impression/plan with the resident/fellow.I agree with the history, examination, impression, and recommendations as documented in today's notefrom the resident/fellow except as documented below. Impression/Report/Plan: Mr. Adam Campbell is a 55-year-old gentleman from [facility] with borderline resectable pancreatic cancer who was admitted to the hospital for complications of necrotizing pancreatitis.Palliative Medicine is consulted for recommendations regarding cancer associated pain. 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 He has been followed extensively by Infectious Diseases and Gastroenterology. The current feeling is that he does not have active infection; infectious diseases has advised observation off antimicrobial therapy. He has evidence of progressive pancreatic dysfunction, and we recommend consultation with Gastroenterology for further insight into this. I wonder if he may be a candidate for necrosectomy now that his symptoms have escalated. I think it would be reasonable to start an empiric trial acetaminophen, although we are aware that there is often a preference to avoid this to minimize the risk of blunting a fever response to infection. He has inflammatory pain and would likely benefit from corticosteroids or NSAIDs, however NSAIDs are likely not favorable here given his tumor thrombus and active anticoagulation. We can rotate back to oxycodone given the concerns of opioid toxicity with hydromorphon e. Recommendations: ?? Oxycodone, acetaminophen, anti-inflammatories as suggested by Dr. Julio. ?? Consider Gastroenterology consultation as above. We will continue to follow this patient with you and collaborate on their care. Please do not hesitate to call the Palliative Medicine Service pager at [phone] ([facility]), [phone] ([facility]), or [phone] ([facility]) for any questions. Total time spent was 40 minutes, with 37 minutes spent on counseling and coordination of care, including diagnostic results/impressions, further recommendations for diagnostic studies, risks/benefits/alternatives of treatment options, and importance of adherence with suggested management plans. I also reviewed my impressions and recommendations with other health care providers to accommodate the needs of the patient. Jewel Romeo M.D. Material Expeditort[employer]ffic control flagger Division of General Internal Medicine Center for Palliative Medicine Casandra Carranza M.D. - 10/20/2020 1:01 PM CSTAssociated Order(s): IP CONSULT TO PALLIATIVE CARE [facility] New Consult Note Patient: Adam Campbell; 55 y.o.male Location: 423/423-P Date of Service: 10/20/2020 Time of Visit: 1:01 PM [facility] Hospital Admission Date: 10/18/2020 11:42 AM Hospital Day: 2 Primary Tanker Driver: Billie Shaw M.D. Primary Care Provider: ELSEWHERE, PCP SUBJECTIVE Reason for Consult: Complex symptom management with ongoing assessment of medication adverse effectsand efficacy. History of Present Illness Mr Campbell is a 55 y.o.??male??with??a history of pancreatic cancer with common bile duct stenting on July 2020 and ERCP on 07/2020, now on cycle 1 gemcitabine/paclitaxel.??His course has been complicated by bacteremia and non occlusive left main portal vein thrombosis. 09/09/2020 MRCP showed decrease in the size of peripancreatic fluid collections, stable thrombus of the left portal vein. 09/12/2020 and was found to have extensive necrotizing peripancreatic fluid collections with foci of gas. He was currently admitted for severe uncontrolled abdominal pain and IV antibiotics. Abx have since beendiscontinued. Interventional pain management has determined that patient is not a candidate for severe plexus block this time due to high risk of procedure with current degree of fluid collections. Palliative medicine was consulted for complex symptom management with ongoing assessment of medication adverse effects and efficacy. Today I met the patient at bedside as he was joined by his . He appeared moderately uncomfortable, but in no acute distress. I explained what palliative medicine entails and the reason for why we were consulted. They are happy to participate in the encounter. His pain waxes and wanes, but is always noticeable. It is localized to the epigastric region with familiar radiation bilaterally around his sides to his back. He says that he has had similar pain for along time, but it have been worse recently that ever before in the past. He has been taking oxycodone 5mg oral at home, tolerated well, but unfortunately minimal appreciated analgesic effect. He has not tried any addition adjuvant therapies. His pain is exacerbated with movement, activity, palpation, and intra-abdominal pressure increases. He mentions that the only two alleviating factors are to lay p ersistently on one side in bed or to utilize the hydromorphone. He has tried to ambulate multiple times since admission and reports that his pain incrementally increases to 12/10 in severity. He notes that the current regimen of hydromorphone improves his pain from 10/10 down to 8/10; however, he doesfeel slightly somnolent with administrations. Otherwise he complains about significant intra-abdominal gas. He says over the past couple weeks he has been having increasing indigestion, reflux, nausea,and intra-abdominal bloating with significant passing of rancid flatulence. He is not currently taking any pancreatic enzyme replacement therapies. His pain goal is to improve severity to what ever quantifiable level is required in order to improve his function and be able to walk around freely. Palliative Medicine Symptom Assessment: Pain: Multidimensional. Severe acute on chronic, potentially mixed somatic nociceptive/neuropathic intra-abdominal pain secondary to recently diagnosed necrotizing pancreatitis and associated inflammation. Suspected intraabdominal visceral pain due to bloating/worsened flatulence related to pancreatic insufficiency. ?? Dyspnea: Denies ?? Bowels: Sources poor bowel movements over the past several days with a increase in abdominal bloating/foul-smelling flatulence ?? Nausea/Vomiting: Intermittent nausea ongoing with episodic bilious emesis prior to admission ?? Sleep: Interrupted secondary to pain ?? Appetite: Decreased secondary to pain and increased bloating with meals ?? Mood: Low in setting of life-threatening diagnosis; further lowered in setting of acute on chronic pain ?? Other: N/A I have reviewed the patient???s record in the Prescription Monitoring Program (SUMMER ANALYST) with no unexpected findings. The following portions of the patient's history were reviewed and updated as appropriate: Allergies,Current Medications, Medical History, Surgical History, Family History and Social History Medical/Surgical/Family/Social/Spiritual History Formulation See above Code Status at Time of Initial Consultation Full Code Review of Systems Constitutional: Fever, Chills, Night sweats, Hot flashes, Weight Loss, Anorexia, Fatigue HEENT: Headaches, Dizziness, Change in Vision, Epistaxis, Bleeding gums, Mouth sores, Odynophagia, Xerostomia Respiratory: Dry Cough, Productive Cough, Shortness of breath/dyspnea, Pleuritic Chest Pain, Hemoptysis, Excess secretions Cardiovascular: Orthopnea, PND, ??Chest Pain, ?Palpitations, LE edema? GI: Dysphagia, Heartburn, Hiccups, Hematemesis, N/V, Diarrhea, Constipation, Abdominal pain, Melena,bloating : Dysuria, Hematuria, Incomplete Voiding, Frequency, Retention/Incontinence? Musculoskeletal: Bone pain, Joint pain/swelling, Muscle aches? Skin: Pruritis, Dry skin??, Rash Neurological: Drowsiness, Difficulty thinking/Memory Impairment, Paresthesias, Myoclonus? Psychiatric: Anxiety, Depressed mood, Irritability, Sadness, Hallucinations (visual/auditory)? The patient reports symptoms that are bold. All other systems have been reviewed and are negative.??? Palliative Functional Assessment 60%- Reduced ambulation, Unable to do hobby/housework with significant evidence of disease, Occasional assistance needed for self-care, Normal or reduced intake, Full level of consciousness or confusion OBJECTIVE Physical Exam Temperature: [36.7 ??C-37.5 ??C] 36.9 ??C Resp Rate: [16-20] 20 Blood Pressure: (97-110)/(50-69) 105/64 SpO2: [90 %-97 %] 93 % Height: [179.7 cm] 179.7 cm Pulse Rate: [120-134] 120 General: Middle age gentleman lying in bed, awake HEENT: Moist mucous membranes CV: Regular rate Respiratory: Unlabored respirations. Abdomen: epigastric tenderness Extremities: well perfused. Musculoskeletal: Moves all Skin: Warm Neurologic: No myoclonus. Psychiatric: RASS 0 Diagnostics I have reviewed recent labs, imaging, and other diagnostics. ASSESSMENT / PLAN Impression/Report/Plan Mr Campbell is a 55 y.o.??male??with??a history of pancreatic cancer with common bile duct stenting on July 2020 and ERCP on 07/2020, now on cycle 1 gemcitabine/paclitaxel.??His course has been complicated by bacteremia and non occlusive left main portal vein thrombosis. 09/09/2020 MRCP showed decrease in the size of peripancreatic fluid collections, stable thrombus of the left portal vein. 09/12/2020 and was found to have extensive necrotizing peripancreatic fluid collections with foci of gas. He was currently admitted for severe uncontrolled abdominal pain and IV antibiotics. Abx have since beendiscontinued. Interventional pain management has determined that patient is not a candidate for severe plexus block this time due to high risk of procedure with current degree of fluid collections. Palliative medicine was consulted for complex symptom management with ongoing assessment of medication adverse effects and efficacy. #1 Severe acute on chronic, potentially mixed somatic nociceptive/neuropathic intra-abdominal pain secondary to recently diagnosed necrotizing pancreatitis and associated inflammation in setting of pancreatic adenocarcinoma #2 Pancreatic adenocarcinoma on cycle 1 gemcitabine/paclitaxel chemotherapy #3 Suspected visceral pain due to bloating/flatulence 2/2 pancreatic insufficiency #4 Portal vein thrombus #5 Palliative Care Z51.5 Tough spot. Home oxycodone 5mg was ineffective for pain, but well tolerated. Hydromorphone (low dose) during this admission has caused pain-sedation mismatch. We recommend to stop hydromorphone at thistime and to instead increase his prior oxycodone to 10mg as needed Q3 hours PRN. Additionally, consider dexamethasone 4mg, scheduled twice daily (prefer no doses after 2PM at risk of insomnia). In addition patient describes clinical picture consistent with pancreatic insufficiency (bloating with meals, indigestion, increased flatulence/malodorous, etc). Do consider evaluation for pancreatic enzyme rep lacement therapy with creon or similar at primary team's discretion. In addition to input on pancreatic enzymes, a GI consult might prove beneficial for added support and assessment for potential procedures (previously considered for necrosectomy which was not pursued but now with worsening pain). Consideration was had for other interventions such as tylenol and ketorolac; however, these agents do not currently fit into the patient's care regimen by the primary team. Please continue to encourage physical activity as possible and non-pharmacologic interventions such as fresh air, maximized restorative sleep, and we will continue to follow. Recommendations ??? Start oxycodone 10mg, oral, PRN Q3 hours ??? Discontinue hydromorphone ??? Consider dexamethasone IV, 4mg, scheduled BID (8AM and noon) ??? Consider GI consult for assessment of potential intervention in setting of worsened pain as wellas below: ??? Consider enzyme replacement therapy for bloating/indigestion/gas worsening pain potentially related to pancreatic insufficiency ??? Continue to encourage frequent activity to maintain function ??? Continue bowel regimen, with adjustments as needed, to maintain at least one soft bowel movementper day. ??? Encouraged to travel outdoors (as permitted) for therapeutic daylight and fresh air administration with subsequent minimized interruptions during evening hours to maximize restorative slumber. ??? Bedside expert interdisciplinary palliative team support in non- pharmacologic interventions for strategies in managing anxiety/coping/etc. Thank you for this consult. Please do not hesitate to call the Palliative Medicine Service pager at [phone] ([facility]), [phone] ([facility]), or [phone] (Cardiovascular). Casandra Julio M.D. Hospice and Palliative Medicine Fellow [facility] Pager: [phone] RAL COUNSELOR Jas Kaufman M.D. - 10/18/2020 1:06 PM CSTAssociated Order(s): IP CONSULT TO INFECTIOUS DISEASES Infectious Diseases [facility] Consulting Service SUBJECTIVE REASON FOR CONSULT We are seeing Mr. Campbell at the request of Jessenia Thakkar M.D. to give further recommendations for evaluation and management of Prior history pancreatitis with long-term antibiotics now expressing fevers after receiving 1st cycle of chemotherapy. HISTORY OF PRESENT ILLNESS Mr. Campbell is a 55-year-old male with a history of necrotizing pancreatitis and pancreatic adenocarcinoma who presents with fever and abdominal pain. Mr. Campbell has a background history of [...] for abdominal pain and fever, for which she was previously on antibiotics was discontinued whenERCP showed a biliary stricture requiring stenting. Following the initial diagnosis of pancreatic adenocarcinoma on 07/29/2020, he was evaluated in [facility]. It was ultimately decided to start gemcitabine and paclitaxel chemotherapy, with his 1st dose being on 10/16/2020. He did well immediately afterwards; however, he developed a fever either that evening or the next morning. He presented to his local emergency department, where blood cultures were obtained, he was ultimately dismissed home. Later on 10/17/2020, he developed severe epigastric and lower midline abdominal pain as well as ???rancid gas?? that he has previously attributed to his episodes of pancreatitis. He ultimately sought evaluation at his local emergency department, and was transferred for admission at [facility] earlier today. Speaking with him this afternoon, he continues to have lower abdominal pain. He does endorse a couple episodes of vomiting, but states these were self-induced to help with his pain. Outside of these symptoms and his fever, he feels reasonably well. He denies any skin changes or rashes, swelling, diarrhea, or other significant symptoms. OBJECTIVE PHYSICAL EXAMINATION Vital Signs: I have reviewed the current vital sign data as applicable. General: Alert, oriented, no acute distress. HEENT: Moist mucous membranes, anicteric. Heart: Regular rate and rhythm. No murmurs, gallops, or rubs. Lungs: Clear to auscultation bilaterally, no wheezes or crackles. No increased work of breathing. Onroom air. Abdomen: Tender to palpation most prominent in lower abdomen, somewhat in epigastrium. Soft, nondistended. Voluntary guarding noted. Slightly hyperactive bowel sounds. Skin: No rashes or lesions. Psych: Euthymic. Extremities: No lower extremity edema noted. DIAGNOSTICS: I have reviewed diagnostics. Current antimicrobial medications: ??? piperacillin-tazobactam, 3.375 g, Q6H ASSESSMENT / PLAN #1 Fever and abdominal pain, query acute pancreatitis vs intra-abdominal infection #2 Pancreatic adenocarcinoma on cycle 1 gemcitabine/paclitaxel chemotherapy #3 Necrotizing pancreatitis #4 History of Streptococcus anginosus bloodstream infection complicated by septic portal vein thrombus Mr. Campbell presents with fever shortly after starting chemotherapy for pancreatic adenocarcinoma, followed by abdominal pain reminiscent of his past episodes of pancreatitis. The cause of his symptoms are not immediately clear. However, the most likely etiologies include chemotherapy-related fever, recurrent acute pancreatitis, or intra-abdominal infection. He did have a CT abdomen/pelvis performed atthe outside emergency department, and the primary team is in process of obtaining an interpretation for this. We would agree with initiating piperacillin-tazobactam, but would obtain 2 sets of peripheral blood cultures prior to initiation. We would also agree with obtaining an interpretation of the outside CT abdomen/pelvis, as he does have very complex abdominal anatomy. Based on these results, we can plan our next steps. If the CT does not show any convincing signs for infection, we may be able to continueantibiotics until blood cultures have been without growth for at least 48 hours. If a source of infection is defined, we can target our antibiotic therapy at this. We will continue to follow and update our recommendations as further information becomes available. RECOMMENDATIONS: 1. Please obtain 2 sets of peripheral blood cultures prior to initiation of antibiotics. 2. Agree with initiating piperacillin-tazobactam 3.375 g IV Q6h. 3. Await radiology interpretation of outside CT abdomen/pelvis. Treatment plan reviewed with Mr. Campbell, who expressed understanding. All questions answered to patient's satisfaction. This patient was discussed with Dr. Boles. We will follow along closely. Please page the [facility] service pager at [phone] with questions. Thank you for the consultation. Harsh Kaufman M.D. RAL COUNSELOR Associated attestation - Efren Boles M.D., Ph.D. - 10/18/2020 2:30 PM FUNERAL COUNSELOR I met and examined the patient. I reviewed Jas Kaufman M.D. (Zach)???s note. I agree with their findings and plan. He developed fever the night after start chemotherapy followed by pancreatitis symptoms. He was admitted and started on Zosyn. We have CT scan that shows a decrease in the size of the fluid collectionsin the pancreas. We don't have much information yet in regards to leukocytosis, amylase/lipase levels, or blood cultures. We'd continue the Zosyn for now, but I'd be suspicious his fevers may have beendrug related given the timing with chemotherapy earlier that day. If we're not finding objective findings of an infection then we'll need to consider observing off antibiotics. documented in this encounter Nursing Notes Mariluz Wang R.N., O.C.N. - 10/22/2020 6:00 PM CST Patient dismissed to home self care with family support. Received AVS, dismissal summary, and new medication CareNotes. Brian Maguire CLINICAL ASSESSMENT MANAGER reviewed instructions at bedside and answered questions. Port placement appointment rescheduled due to lovenox administered this morning, patient and verbalized understanding of this. Tachycardic at 118 during last VS check, Brian Maguire CLINICAL ASSESSMENT MANAGER still ok to dismiss [id number] IV fluid bolus finished. PIV's removed without incident. [facility] brought patient and wifein wheelchairs down to [facility] for family to transport home. RAL COUNSELOR Shaniqua Marcelo R.N., O.C.N. - 10/22/2020 2:38 PM CST Shift Goals: Clinical Goals for the Shift: Patient will have adequate bowel evacuation and have adequate pain management. Identify possible barriers to meeting goals/advancing plan of care: End of Shift Summary: Patient had 5 bowel movements last night. Patient states he feels much better today. He did have one known bowel movement today. Patient's pain has been adequately managed with every 3 hour Oxycodone. Patient is well enough to be discharged later this afternoon. Nursing to continue to monitor. RAL COUNSELOR Elizabeth Ho R.N. - 10/19/2020 10:29 PM CST Problem: PAIN - ADULT Goal: PT VERBALIZES/DEMONSTRATES ADEQUATE COMFORT LEVEL OR BASELINE Outcome: Not Progressing Problem: KNOWLEDGE DEFICIT Goal: Patient/family/caregiver demonstrates understanding of disease process, treatment plan, medications, and discharge instructions Outcome: Progressing Shift Goals: Clinical Goals for the Shift: remain afebrile; pain control Identify possible barriers to meeting goals/advancing plan of care: Abdominal pain End of Shift Summary: SBP remains soft in mid 90's, HR tachycardic in 120's, sx aware and EKG ordered. C/O pain 10/10 with movement, subsides to 0/10 when resting. Pt states pain is in abdomen and feels to be muscular, pain is unrelieved with PRN dilaudid. Patient goal met, had small bowel movement this shift. D/C plan pending medical stability. BP (!) 97/50 (BP Location: Right arm;Upper, Patient Position: Lying) Pulse (!) 121 Temp 36.8 ??C(Axillary) Resp 19 Ht 179.7 cm Wt 72.8 kg SpO2 97% BMI 22.54 kg/m?? Electronically signed by: Yovani Ho R.N. 10/19/20 10:41 PM FUNERAL COUNSELOR RAL COUNSELOR Enrique Andrew R.N., PratikMRiazSRiazRRiazNRiaz - 10/18/2020 11:04 PM CST Shift Goals: Clinical Goals for the Shift: Pain control, remain afebrile. Identify possible barriers to meeting goals/advancing plan of care: None End of Shift Summary: Patient's pain managed with PRN dilaudid. Vital signs remained stable, no spikes in temperature. Urine output adequate throughout shift. Tolerating regular diet, denied nausea. RAL COUNSELOR Viola Riggs R.N. - 10/18/2020 6:34 PM CST Shift Goals: Clinical Goals for the Shift: [place] to unit Identify possible barriers to meeting goals/advancing plan of care: End of Shift Summary: Patient admitted to unit early afternoon. Patient was oriented to unit and pain has been well controlled on oral dilaudid. Patient has been free from fevers since being admitted to unit. No complaints of nausea at this time. Nursing will continue to monitor. Problem: PAIN - ADULT Goal: PT VERBALIZES/DEMONSTRATES [...] remains free from fall/fall injury Outcome: Progressing RAL COUNSELOR documented in this encounter Miscellaneous Notes Hospital Course - Brian Maguire APRN, C.N.P. - 10/20/2020 8:33 PM CST Patient is a 55 y.o. male who presents with a history of pancreatic cancer status post common bile duct stenting on July 29, 2020 and status post ERCP on 08/04/2020. 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 He was treated with a 6 week duration of ceftriaxone. This was scheduled to be completed on 09/24/2019. However on 09/09/2020 he underwent an MRCP that showed a decrease in the size of the peripancreatic fluid collections, stable thrombus of the left portal vein, and no significant intra have headache biliary ductal dilatation so the antibiotics were switched to ertapenem. He presented to the hospital on 09/12/2020 and was found to have extensive necrotizing peripancreatic fluid collections with foci of gas. He was switched for short period of time to Zosyn and then switch back to ertapenem and discharged. He was seen on 10/[address] Murray, his medical oncologist, and he started chemotherapy which included albumin bound paclitaxel and gemcitabine. He tolerated the treatment well. Monday night, however, he woke up to a fever of 101.8. He presented to the emergency department in [place]. He had blood cultures drawn while he was there and then was discharged to home. The following morning he woke up with abdominal pain that he rated 12/10. [facility]. They admitted him to the [facility] and the patient requested to be transferred to [facility]. Follow transfer, he was started on Zosyn for potential recurrence of his abscess and ID was consulted. Repeat blood cultures were obtained. An abdominal CT was performed at OSH. This was read and interpreted by our radiologist at [facility]. Imaging showed extensive residual multiloculated fluid collections in the pancreas bed/left upper quadrant are slightly decreased in size compared imaging on 10/05. The patient remained afebrile during this hospitalization and blood cultures came back negative. Zosyn was discontinued. On the evening on 10/19, the service was notified of persistent tachycardia, this was evaluated with an ECG which showed evidence of possible acute WV/STEMI with ST elevation. Troponins were drawn and a repeat ECG was ordered. The repeat ECG no longer showed evidence of WV. Impression was sinus tachycardia with nonspecific ST and T wave abnormality. Troponin at baseline was <6. 2 hr troponin no delta, < 6. Patient was not experiencing any chest pain or shortness of breath. Lab work showed a hgb of 8.5. This had previously been 10.7 prior to chemotherapy on 10/16. This is likely chemotherapy-induced. No obvious signs of bleeding or worsening abdominal pain. A recheck was performed 5 hours later. T his was stable at 8.7. Cardiology overnight who responded to the ECG findings, did recommend a ECHO.This was performed and showed an EF of 61% and no regional wall abnormalities. IVC was small and collapsed, suggestive of dehydration. He was given IV fluids which improved his HR to the 100's. Blood pressures are in the 100s/60s (MAP 70s). He was encouraged to increase his oral intake. Abdominal pain continued to cause Mr. Campbell significant discomfort. He was taking hydromorphone around the clock with only mild relief. The pain significantly increased with ambulation. CT scan from 10/17 did show a good deal of stool. He had not had a bowel movement for a couple of days. He was still pa ssing flatus. An aggressive bowel regimen was started. Pain service was curbsided for possible consideration of a celiac plexus block. Unfortunately, given recent pancreatitis and ongoing peripancreatic fluid collections the procedure has been deemed too high risk at this time. This could be reassessed in the future once fluid collections resolve. A palliative medicine consult has been placed to assist with ongoing complex pain management. Hydromorphone was changed to oxycodone. Anti-inflammatories were considered, but due to recent concern for infection these were not started. GI was consulted earlemended no surgical intervention. The recommendation was to be aggressive with bowel care to seeif reducing stool burden would help with pain and nausea. RAL COUNSELOR documented in this encounter Plan of Treatment Upcoming Encounters Date Type Specialty Care Team Description 06/22/2022 Lab Laboratory Medicine Maria Del Rosario Gomez AP RN, C.N.P., M.S. [address] [place] [address] [phone] (Wo rk) 06/22/2022 Infusion Oncology LaottoMaria Del Rosario pierre APRN, C.N .P., M.S. [address] [place] [address] [phone] (Wo rk) 06/29/2022 Lab Laboratory Medicine Maria Del Rosario Gomez AP RN, C.N.P., M.S. [address] [place] [address] [phone] (Wo rk) 06/29/2022 Infusion Oncology Maria Del Rosario Gomez APRN, C.N .P., M.S. [address] [place] [address] [phone] (Wo rk) documented as of this encounter Procedures Procedure Name Priority Date/Time Associated Comments Diagnosis CBC CHEMO - NO ALERTS Routine 10/22/2020 6:23 Res ults for AM FUNERAL COUNSELOR this procedure are in the results section. MAGNESIUM, S Routine 10/22/2020 6:23 Results for AM FUNERAL COUNSELOR this procedure are in the results section. BASIC METABOLIC Routine 10/22/2020 6:23 Results f or PANEL, S/P AM FUNERAL COUNSELOR this procedure are in the results section. BASIC METABOLIC Routine 10/21/2020 10:07 Results for PANEL, S/P AM FUNERAL COUNSELOR this procedure are in the results section. ECG Routine 10/21/2020 7:13 Results for AM FUNERAL COUNSELOR this procedure are in the results section. BACTERIA / MAXWELL Routine 10/21/2020 6:20 Result s for CULTURE, BLOOD AM FUNERAL COUNSELOR this procedur e are in the results section. BACTERIA / MAXWELL Routine 10/21/2020 6:10 Result s for CULTURE, BLOOD AM FUNERAL COUNSELOR this procedur e are in the results section. HEPATIC FUNCTION Routine 10/21/2020 4:36 Results for PANEL, S AM FUNERAL COUNSELOR this procedure are in the results section. CBC NO CALL BACK, Routine 10/21/2020 4:36 Results for REFLEX T/S AM FUNERAL COUNSELOR this procedure are in the results section. MAGNESIUM, S Routine 10/21/2020 4:36 Results for AM FUNERAL COUNSELOR this procedure are in the results section. CORTISOL, S Routine 10/21/2020 4:36 Results for AM FUNERAL COUNSELOR this procedure are in the results section. BASIC METABOLIC Routine 10/21/2020 4:36 Results f or PANEL, S/P AM FUNERAL COUNSELOR this procedure are in the results section. HEMOGLOBIN, B Timed 10/20/2020 3:08 Results for PM FUNERAL COUNSELOR this procedure are in the results section. (TTE) 2D ECHO DOPPLER Routine 10/20/2020 12:00 Re sults for COLOR AND CONTRAST PM FUNERAL COUNSELOR this proc edure are in the results section. CBC NO CALL BACK, Routine 10/20/2020 6:10 Results for REFLEX T/S AM FUNERAL COUNSELOR this procedure are in the results section. COMPREHENSIVE Routine 10/20/2020 6:10 Results for METABOLIC PANEL, S/P AM FUNERAL COUNSELOR this pr ocedure are in the results section. TYPE AND SCREEN Routine 10/20/2020 1:07 Results f or AM FUNERAL COUNSELOR this procedure are in the results section. TROPONIN T, 2H/6H, Timed 10/20/2020 1:06 Result s for 5TH GEN, P AM FUNERAL COUNSELOR this procedure are in the results section. HEMOGLOBIN, B Timed 10/20/2020 1:06 Results for AM FUNERAL COUNSELOR this procedure are in the results section. CBC NO CALL BACK, STAT 10/19/2020 11:41 Result s for REFLEX T/S PM FUNERAL COUNSELOR this procedure are in the results section. MAGNESIUM, S STAT 10/19/2020 11:41 Results for PM FUNERAL COUNSELOR this procedure are in the results section. LACTATE, B/P STAT 10/19/2020 11:41 Results for PM FUNERAL COUNSELOR this procedure are in the results section. COMPREHENSIVE STAT 10/19/2020 11:41 Results fo r METABOLIC PANEL, S/P PM FUNERAL COUNSELOR this pr ocedure are in the results section. LIPASE, S/P Routine 10/19/2020 11:36 Results for PM FUNERAL COUNSELOR this procedure are in the results section. ECG STAT 10/19/2020 11:16 Results for PM FUNERAL COUNSELOR this procedure are in the results section. TROPONIN T, BASELINE, STAT 10/19/2020 11:05 Re sults for 5TH GEN, P PM FUNERAL COUNSELOR this procedure are in the results section. ECG STAT 10/19/2020 10:47 Results for PM FUNERAL COUNSELOR this procedure are in the results section. BACTERIA / MAXWELL Routine 10/18/2020 2:10 Result s for CULTURE, BLOOD PM FUNERAL COUNSELOR this procedur e are in the results section. BACTERIA / MAXWELL Routine 10/18/2020 2:03 Result s for CULTURE, BLOOD PM FUNERAL COUNSELOR this procedur e are in the results section. VRE PCR Routine 10/18/2020 12:48 Results for PM FUNERAL COUNSELOR this procedure are in the results section. INTERPRETATION OF RAD - Routine 10/18/2020 12:10 Resul ts for OUTSIDE CT ABDOMEN (most inpatients PM FUNERAL COUNSELOR this procedure AND OR PELVIS and all are in the outpatients) results section. documented in this encounter Results (ABNORMAL) CBC, Chemotherapy, No Alerts (10/22/2020 6:23 AM FUNERAL COUNSELOR) P athologist Signature Hemoglobin 8.4 (L) 13.2 - 10/22/2020 DTL 16.6 g/dL 6:51 AM FUNERAL COUNSELOR Platelet Count 200 135 - 317 10/22/2020 DTL x10(9)/L 6:51 AM FUNERAL COUNSELOR Leukocytes 6.5 3.4 - 9.6 10/22/2020 DTL x10(9)/L 7:51 AM FUNERAL COUNSELOR Comment: Results confirmed by smear. Neutrophils 5.25 1.56 - 6.45 x10(9)/L 10/22/2020 7:51 A M FUNERAL COUNSELOR DTL Specimen Anatomical Collection Method Collection Time Receive d Time (Source) Location / / Volume Laterality Blood (Blood, 10/22/2020 6:23 AM 10/22/19 6:41 Venous) FUNERAL COUNSELOR AM FUNERAL COUNSELOR Brian Maguire APRN, C.N.P. LAB BLOOD ADD-ON Performing Organization Address City/State/ZIP Code Phon e Number [facility] - [address] [facility] [place] [address] [place] [id number] Laboratories[address] Magnesium (10/22/2020 6:23 AM FUNERAL COUNSELOR) athologist Signature Magnesium, S 2.1 1.7 - 2.3 10/22/2020 DTL mg/dL 7:06 AM FUNERAL COUNSELOR Specimen Anatomical Collection Method Collection Time Receive d Time (Source) Location / / Volume Laterality Blood (Blood, 10/22/2020 6:23 AM 10/22/19 6:34 Venous) FUNERAL COUNSELOR AM FUNERAL COUNSELOR Brian Maguire APRN, C.N.P. LAB BLOOD ADD-ON Performing Organization Address City/State/ZIP Code Phon e Number [facility] - [address] [place] [id number] [address] (ABNORMAL) Basic Metabolic Panel (10/22/2020 6:23 AM FUNERAL COUNSELOR) athologist Signature Potassium, S 3.5 (L) 3.6 - 5.2 10/22/2020 DTL mmol/L 7:06 AM FUNERAL COUNSELOR Sodium, S 134 (L) 135 - 145 10/22/2020 DTL mmol/L 7:06 AM FUNERAL COUNSELOR Chloride, S 99 98 - 107 10/22/2020 DTL mmol/L 7:06 AM FUNERAL COUNSELOR Bicarbonate, S 27 22 - 29 10/22/2020 DTL mmol/L 7:06 AM FUNERAL COUNSELOR Anion Gap 8 7 - 15 10/22/2020 DTL 7:06 AM FUNERAL COUNSELOR BUN (Blood Urea 15 8 - 24 10/22/2020 DTL Nitrogen), S mg/dL 7:06 AM FUNERAL COUNSELOR Creatinine 0.79 0.74 - 10/22/2020 DTL 1.35 mg/dL 7:06 AM FUNERAL COUNSELOR eGFR-Non >90 >=60 10/22/2020 DTL Black/ mL/min/BSA 7:06 AM FUNERAL COUNSELOR [place] Comment: ----ADDITIONAL INFORMATION---- Estimated GFR calculated using the 2009 CKD_EPI creatinine equation. eGFR-Black/ >90 >=60 mL/min/BSA 2020 7:06 AM FUNERAL COUNSELOR DTL Comment: ----ADDITIONAL INFORMATION---- Estimated GFR calculated using the 2009 CKD_EPI creatinine equation. Calcium, Total, S 7.6 (L) 8.6 - 10.0 mg/dL 10/22/2020 7:06 AM FUNERAL COUNSELOR DTL Glucose, S 88 70 - 140 mg/dL 10/22/2020 7:06 AM FUNERAL COUNSELOR D TL Specimen Anatomical Collection Method Collection Time Receive d Time (Source) Location / / Volume Laterality Blood (Blood, 10/22/2020 6:23 AM 10/22/19 6:34 Venous) FUNERAL COUNSELOR AM FUNERAL COUNSELOR Brian Maguire APRN, C.N.P. LAB BLOOD ADD-ON Performing Organization Address City/State/ZIP Code Phon e Number [facility] - [address] [place], [place] [address] [facility] [place] [address] [facility] [address] (ABNORMAL) Basic Metabolic Panel (10/21/2020 10:07 AM FUNERAL COUNSELOR) P athologist Signature Potassium, S 3.7 3.6 - 5.2 10/21/2020 DTL mmol/L 10:52 AM FUNERAL COUNSELOR Sodium, S 131 (L) 135 - 145 10/21/2020 DTL mmol/L 10:52 AM FUNERAL COUNSELOR Chloride, S 94 (L) 98 - 107 10/21/2020 DTL mmol/L 10:52 AM FUNERAL COUNSELOR Bicarbonate, S 30 (H) 22 - 29 10/21/2020 DTL mmol/L 10:52 AM FUNERAL COUNSELOR Anion Gap 7 7 - 15 10/21/2020 DTL 10:52 AM FUNERAL COUNSELOR BUN (Blood Urea 13 8 - 24 10/21/2020 DTL Nitrogen), S mg/dL 10:52 AM FUNERAL COUNSELOR Creatinine 0.81 0.74 - 10/21/2020 DTL 1.35 mg/dL 10:52 AM FUNERAL COUNSELOR eGFR-Non >90 >=60 10/21/2020 DTL Black/ mL/min/BSA 10:52 AM FUNERAL COUNSELOR [place] Comment: ----ADDITIONAL INFORMATION---- Estimated GFR calculated using the 2009 CKD_EPI creatinine equation. eGFR-Black/ >90 >=60 mL/min/BSA 2020 10:52 AM FUNERAL COUNSELOR DTL Comment: ----ADDITIONAL INFORMATION---- Estimated GFR calculated using the 2009 CKD_EPI creatinine equation. Calcium, Total, S 7.9 (L) 8.6 - 10.0 mg/dL 10/21/2020 10:5 2 AM FUNERAL COUNSELOR DTL Glucose, S 147 (H) 70 - 140 mg/dL 10/21/2020 10:52 AM FUNERAL COUNSELOR DTL Specimen Anatomical Collection Method Collection Time Receive d Time (Source) Location / / Volume Laterality Blood (Blood, 10/21/2020 10:07 10/21/2020 Venous) AM FUNERAL COUNSELOR 10:15 AM FUNERAL COUNSELOR Julieth Villa, B.Ch., Ph.D. LAB BLOOD ADD-ON Performing Organization Address City/State/ZIP Code Phon e Number [facility] - [address] [place], [place] [address] [facility] [place] [address] [facility] 200 [facility] ECG 12 Lead (10/21/2020 7:13 AM FUNERAL COUNSELOR) P athologist Signature Ventricular Rate 86 BPM MUSE ECG/Min DE Interval 208 ms MUSE QRSD Interval 100 ms MUSE QT Interval 376 ms MUSE QTC Interval 449 ms MUSE P [place] 55 degrees MUSE R [place] 6 degrees MUSE T Wave [place] 8 degrees MUSE Specimen Anatomical Collection Method Collection Time Receive d Time (Source) Location / / Volume Laterality 10/21/2020 7:13 AM 7:30 FUNERAL COUNSELOR AM FUNERAL COUNSELOR Impressions MUSE - 10/21/2020 7:30 AM FUNERAL COUNSELOR Sinus rhythm with 1st degree A-V block Otherwise normal ECG When compared with ECG of 19-OCT-2020 23 :16, Nonspecific T wave abnormality no longer evident in Anterolateral leads Reviewed by HAROON López Narrative This result has an attachment that is no t available. Procedure Note Nikita Saez M.D. - 10/21/2020Formatti ng of this note might be different from the original. IMPRESSION: Sinus rhythm with 1st degree A-V block Otherwise normal ECG When compared with ECG of 19-OCT-2020 23 :16, Nonspecific T wave abnormality no longer evident in Anterolateral leads Reviewed by HAROON López Julieth Villa, B.Ch., Ph.D. ECG ORDERABLES Performing Organization Address City/State/ZIP Code Phon e Number [facility] Bacteria / Maxwell Culture, Blood #2 (10/21/2020 6:20 AM FUNERAL COUNSELOR) [facility] Method Time Signature Bacteria/Jane No growth 10/26/2020 DTL da Culture, after 5 7:02 AM FUNERAL COUNSELOR Blood days of incubation. Specimen (Source) Anatomical Collection Method Collection Time Re ceived Time Location / / Volume Laterality Blood (Blood, 10/21/2020 6:20 10/21/2020 6:37 Peripheral Draw) AM FUNERAL COUNSELOR AM FUNERAL COUNSELOR Comment: Specimen Source Site: Blood lef t antecubital Narrative [facility] - 10/26/2020 7:02 AM FUNERAL COUNSELOR Specimen Information: Specimen ID: [id number] Specimen Source: Blood, Peripheral Draw Specimen Comment: Specimen Source Site: Blood left antecubital Specimen Collection Start Date: 10/21/19 ??6:20 AM Specimen Received Date: 10/21/2020 ??6:3 7 AM Specimen ID: [id number] Specimen Source: Blood, Peripheral Draw Specimen Comment: Specimen Source Site: Blood left antecubital Specimen Collection Start Date: 10/21/19 ??6:20 AM Specimen Received Date: 10/21/2020 ??6:3 7 AM Specimen ID: [id number] Specimen Source: Blood, Peripheral Draw Specimen Comment: Specimen Source Site: Blood left antecubital Specimen Collection Start Date: 10/21/19 ??6:20 AM Specimen Received Date: 10/21/2020 ??6:3 7 AM Julieth Villa BGwen., Ph.D. LAB MICROBIOLOGY - NERAL ORDERABLES Performing Organization Address City/[facility]/ZIP Code Phon e Number [facility] - [address] [place], [place] [address] [place] [address] [facility] [address] Bacteria / Maxwell Culture, Blood #1 (10/21/2020 6:10 AM FUNERAL COUNSELOR) [facility] Method Time Signature Bacteria/Jane No growth 10/26/2020 DTL da Culture, after 5 7:02 AM FUNERAL COUNSELOR Blood days of incubation. Specimen (Source) Anatomical Collection Method Collection Time Re ceived Time Location / / Volume Laterality Blood (Blood, 10/21/2020 6:10 10/21/2020 6:37 Peripheral Draw) AM FUNERAL COUNSELOR AM FUNERAL COUNSELOR Comment: Specimen Source Site: Blood lef t antecubital Narrative [facility] - 10/26/2020 7:02 AM FUNERAL COUNSELOR Received two [facility] P[facility] bottles Specimen Information: Specimen ID: [id number] Specimen Source: Blood, Peripheral Draw Specimen Comment: Specimen Source Site: Blood left antecubital Specimen Collection Start Date: 10/21/19 ??6:10 AM Specimen Received Date: 10/21/2020 ??6:3 7 AM Specimen ID: [id number] Specimen Source: Blood, Peripheral Draw Specimen Comment: Specimen Source Site: Blood left antecubital Specimen Collection Start Date: 10/21/19 ??6:12 AM Specimen Received Date: 10/21/2020 ??6:3 7 AM Specimen ID: [id number] Specimen Source: Blood, Peripheral Draw Specimen Comment: Specimen Source Site: Blood left antecubital Specimen Collection Start Date: 10/21/19 ??6:12 AM Specimen Received Date: 10/21/2020 ??6:3 7 AM Julieth Villa B.Ch., Ph.D. LAB MICROBIOLOGY - [facility] ORDERABLES Performing Organization Address City/State/ZIP Code Phon e Number [facility] - [address] [place] [phone] [facility] [place] [address] [facility] 200 [facility] (ABNORMAL) Hepatic Function Panel (10/21/2020 4:36 AM FUNERAL COUNSELOR) Patholo gist Method Time Signature Bilirubin, Total, S 1.2 <=1.2 10/21/2020 DTL mg/dL 9:37 AM FUNERAL COUNSELOR Bilirubin, Direct, S 0.9 (H) 0.0 - 0.3 10/21/2020 DTL mg/dL 9:37 AM FUNERAL COUNSELOR Aspartate 17 8 - 48 10/21/2020 DTL Aminotransferase U/L 9:37 AM FUNERAL COUNSELOR (AST), S Alanine 16 7 - 55 10/21/2020 DTL Aminotransferase U/L 9:37 AM FUNERAL COUNSELOR (ALT), S Alkaline 124 40 - 129 10/21/2020 DTL Phosphatase, S U/L 9:37 AM FUNERAL COUNSELOR Albumin, S 2.4 (L) 3.5 - 5.0 10/21/2020 DTL g/dL 9:37 AM FUNERAL COUNSELOR Protein, Total, S 5.7 (L) 6.3 - 7.9 10/21/2020 DTL g/dL 9:37 AM FUNERAL COUNSELOR Specimen Anatomical Collection Method Collection Time Receive d Time (Source) Location / / Volume Laterality Blood (Blood, 10/21/2020 4:36 AM 10/21/19 21 9:10 Venous) FUNERAL COUNSELOR AM FUNERAL COUNSELOR Brian Maguire APRN, C.N.P. LAB BLOOD ADD-ON Performing Organization Address [facility] Phon e Number [facility] - [address] Cortisol (10/21/2020 4:36 AM FUNERAL COUNSELOR) athologist Signature Cortisol, S 32 mcg/dL 10/21/2020 8:24 DTL AM FUNERAL COUNSELOR Comment: ----REFERENCE VALUE---- a.m. : 7-25 p.m. : 2-14 Specimen Anatomical Collection Method Collection Time Receive d Time (Source) Location / / Volume Laterality Blood (Blood, 10/21/2020 4:36 AM 10/21/19 21 6:45 Venous) FUNERAL COUNSELOR AM FUNERAL COUNSELOR Julieth Villa, B.Ch., Ph.D. LAB BLOOD ADD-ON Performing Organization Address City/[facility] Phon e Number [facility] [address] (ABNORMAL) Magnesium (10/21/2020 4:36 AM FUNERAL COUNSELOR) P athologist Signature Magnesium, S 1.6 (L) 1.7 - 2.3 10/21/2020 DTL mg/dL 7:40 AM FUNERAL COUNSELOR Specimen Anatomical Collection Method Collection Time Receive d Time (Source) Location / / Volume Laterality Blood (Blood, 10/21/2020 4:36 AM 10/21/19 6:45 Venous) FUNERAL COUNSELOR AM FUNERAL COUNSELOR Julieth Villa, B.Ch., Ph.D. LAB BLOOD ADD-ON Performing Organization Address City/State/ZIP Code Phon e Number [facility] - [address] [place] [address] [facility] [place] [address] [facility] [address] [facility] (ABNORMAL) Basic Metabolic Panel (10/21/2020 4:36 AM FUNERAL COUNSELOR) P athologist Signature Potassium, S 3.4 (L) 3.6 - 5.2 10/21/2020 DTL mmol/L 5:16 AM FUNERAL COUNSELOR Sodium, S 129 (L) 135 - 145 10/21/2020 DTL mmol/L 5:16 AM FUNERAL COUNSELOR Chloride, S 95 (L) 98 - 107 10/21/2020 DTL mmol/L 5:16 AM FUNERAL COUNSELOR Bicarbonate, S 27 22 - 29 10/21/2020 DTL mmol/L 5:16 AM FUNERAL COUNSELOR Anion Gap 7 7 - 15 10/21/2020 DTL 5:16 AM FUNERAL COUNSELOR BUN (Blood Urea 12 8 - 24 10/21/2020 DTL Nitrogen), S mg/dL 5:16 AM FUNERAL COUNSELOR Creatinine 0.94 0.74 - 10/21/2020 DTL 1.35 mg/dL 5:16 AM FUNERAL COUNSELOR eGFR-Non >90 >=60 10/21/2020 DTL Black/ mL/min/BSA 5:16 AM FUNERAL COUNSELOR [place] Islander Comment: ----ADDITIONAL INFORMATION---- Estimated GFR calculated using the 2009 CKD_EPI creatinine equation. eGFR-Black/ >90 >=60 mL/min/BSA 2020 5:16 AM FUNERAL COUNSELOR DTL Comment: ----ADDITIONAL INFORMATION---- Estimated GFR calculated using the 2009 CKD_EPI creatinine equation. Calcium, Total, S 8.0 (L) 8.6 - 10.0 mg/dL 10/21/2020 5:16 AM FUNERAL COUNSELOR DTL Glucose, S 118 70 - 140 mg/dL 10/21/2020 5:16 AM FUNERAL COUNSELOR D TL Specimen Anatomical Collection Method Collection Time Receive d Time (Source) Location / / Volume Laterality Blood (Blood, 10/21/2020 4:36 AM 10/21/19 21 4:47 Venous) FUNERAL COUNSELOR AM FUNERAL COUNSELOR Jacquie Ledezma APRN, C.N.P., M.S.N. LAB BLOOD ADD-ON Performing Organization Address City/State/ZIP Code Phon e Number [facility] - 200 [place], [place] [address] [facility] [place] [address] [facility] [address] [facility] (ABNORMAL) CBC no call back, reflex T/S HGB <8 (10/21/2020 4:36 AM FUNERAL COUNSELOR) [facility] gist Method Time Signature Hemoglobin 8.1 (L) 13.2 - 10/21/2020 DTL 16.6 g/dL 4:53 AM FUNERAL COUNSELOR Hematocrit 25.7 (L) 38.3 - 10/21/2020 DTL 48.6 % 4:53 AM FUNERAL COUNSELOR Erythrocytes 3.31 (L) 4.35 - 10/21/2020 DTL 5.65 4:53 AM FUNERAL COUNSELOR x10(12)/L MCV 77.6 (L) 78.2 - 10/21/2020 DTL 97.9 fL 4:53 AM FUNERAL COUNSELOR RBC Distrib Width 15.0 (H) 11.8 - 10/21/2020 DTL 14.5 % 4:53 AM FUNERAL COUNSELOR Platelet Count 215 135 - 317 10/21/2020 DTL x10(9)/L 4:53 AM FUNERAL COUNSELOR Leukocytes 6.4 3.4 - 9.6 10/21/2020 DTL x10(9)/L 6:00 AM FUNERAL COUNSELOR Comment: Results confirmed by smear. Neutrophils 5.55 1.56 - 6.45 x10(9)/L 10/21/2020 6:00 A M FUNERAL COUNSELOR DTL Lymphocytes 0.38 (L) 0.95 - 3.07 x10(9)/L 10/21/2020 6:00 A M FUNERAL COUNSELOR DTL Monocytes 0.46 0.26 - 0.81 x10(9)/L 10/21/2020 6:00 AM FUNERAL COUNSELOR DTL Eosinophils <0.03 0.03 - 0.48 x10(9)/L 10/21/2020 6:00 A M FUNERAL COUNSELOR DTL Basophils <0.03 0.01 - 0.08 x10(9)/L 10/21/2020 6:00 AM FUNERAL COUNSELOR DTL Specimen Anatomical Collection Method Collection Time Receive d Time (Source) Location / / Volume Laterality Blood (Blood, 10/21/2020 4:36 AM 10/21/19 4:47 Venous) FUNERAL COUNSELOR AM FUNERAL COUNSELOR Jacquie Ledezma APRN, C.N.P., M.S.N. LAB BLOOD NON ADD -ON Performing Organization Address City/State/ZIP Code Phon e Number [facility] - [address] [place], [place] [address] [facility] [place] [address] [address] (ABNORMAL) Hemoglobin (10/20/2020 3:08 PM FUNERAL COUNSELOR) P athologist Signature Hemoglobin 7.9 (L) 13.2 - 16.6 10/20/2020 DTL g/dL 3:22 PM FUNERAL COUNSELOR Specimen Anatomical Collection Method Collection Time Receive d Time (Source) Location / / Volume Laterality Blood (Blood, 10/20/2020 3:08 PM 10/20/19 21 3:16 Venous) FUNERAL COUNSELOR PM FUNERAL COUNSELOR Pratik Serrato APRNN.Pamela., M.S.N. LAB BLOOD ADD-ON Performing Organization Address City/State/[facility] Code Phon e Number [facility] - [address] [place], [place] [address] [place] [address] [address] (TTE) 2D ECHO DOPPLER COLOR AND CONTRAST (10/20/2020 12:00 PM FUNERAL COUNSELOR) Patholo gist Method Time Signature Ejection Fraction 61 MC CV EIMS Mid-Ascending Aorta 27 MC CV EIMS LV Mass Index 79 MC CV EIMS LV End-Diastolic 51 MC CV EIMS Diameter LV End-Systolic 34 MC CV EIMS Diameter LV End-Diastolic 143 MC CV EIMS Volume LV End-Systolic 56 MC CV EIMS Volume MV E Velocity 0.8 MC CV EIMS MV A Velocity 1.1 MC CV EIMS MV E/A 0.73 MC CV EIMS MV e' Velocity 0.10 MC CV EIMS Medial MV e' Velocity 0.12 MC CV EIMS Lateral MV E/e' Medial 8.0 MC CV EIMS MV E/e' Lateral 6.7 MC CV EIMS Left ventricular 40 MC CV EIMS stroke volume index Cardiac Output 9.70 MC CV EIMS Cardiac Index 5.05 MC CV EIMS LV Interventricular 9 MC CV EIMS Septal Wall Thickness LV Posterior Wall 8 MC CV EIMS Thickness LV Relative Wall 31 MC CV EIMS Thickness RV 4-Chamber Basal 44 MC CV EIMS Diameter RV 4-Chamber Mid 34 MC CV EIMS Diameter RV 4-Chamber Length 79 MC CV EIMS Tricuspid Annular S? 0.20 MC CV EIMS TR Vmax 2.26 MC CV EIMS RA Pressure 5 MC CV EIMS RV Systolic Pressure 25 MC CV EIM S AV mean gradient 9 MC CV EIMS Aortic valve area 2.76 MC CV EIMS Aortic Valve 0.73 MC CV EIMS Dimensionless Index MV regurgitant 12 MC CV EIMS volume LA Volume Index 30 MC CV EIMS Anatomical Region Laterality Modality Other Specimen (Source) Anatomical Collection Method Collection Time Re ceived Time Location / / Volume Laterality 10/20/2020 10:03 AM FUNERAL COUNSELOR Impressions 10/20/2020 12:10 PM FUNERAL COUNSELOR Bedside echo performed [facility]. ??Subcostal imaging significantly limited due to extreme patient discomfort and excessive gas in the abdo men. ??Intravenous Lumason ultrasound enhancement agent(s) administered to enhance endocar dial border definition. ??LEFT VENTRICLE: ??Normal left ventricular chamber size. ??Normal left ventricular wall thickness. ??Calculated 2-D biplane volumetric left ventricular ejection fra ction 61 %. ??Left ventricular strain assessment was performed but not reported based on inte rpreter's judgment. ??No regional wall motion abnormalities. ??Indeterminate left vent ricular diastolic function. ??RIGHT VENTRICLE: Borderline enlarged right ventricular ch adolfo size. ??Normal right ventricular systolic function. ??Estimated right ventricular systolic pressure 25 mmHg (systolic blood pressure 107 mmHg). ??ATRIA: ??Normal left atrial siz e. ??Left atrial volume index 30 ml/m^2. ??Normal right atrial size by visual estimate. ??CARDIA C VALVES: ??Trileaflet aortic valve. ??Thickened aortic valve. ??No aortic valve regurgitation. ??Thickened mitral valve. ??Mild- moderate mitral valve regurgitation. ??Normal pulmonary valve. ??Increased pulmonary valve systolic velocities. ??Mild pulmonary valve regurgitation. ??Normal tricuspid valve. ??Trivial tricuspid valve regurgitation. OTHER ECHO FINDINGS: ??Normal inferior vena cava size with normal inspiratory collapse (>50%). Normal ascending aorta diameter. ??Abdom inal aorta not visualized. ??Imaging inadequate for detection of atrial level shunt by color flow imaging. ??No intracardiac mass or thrombus, but the left atrial appendage cannot be visu alized adequately with transthoracic echo to exclude thrombus in this location. ??Small circu mferential pericardial effusion. For the complete report, see the Order-L evFive minutes Documents. Narrative 10/20/2020 12:10 PM FUNERAL COUNSELOR For the complete report, see the [employer] Documents. Final Impressions 1. Bedside echo performed [facility]. ??The pat ient was in sinus tachycardia with a resting heart rate of 125 beats per minute the duration of the study. 2. Normal left ventricular chamber size, ejection fraction 61%. ??No regional wall motion abnormalities. 3. Borderline enlarged right ventricular chamber size with normal right ventricular function. 4. Estimated right ventricular systolic pressure 25 mmHg (systolic blood pressure 107 mmHg). 5. Mild-moderate mitral valve regurgitat ion. 6. Small circumferential pericardial eff usion without evidence of hemodynamic compression. 7. The inferior vena cava is small and c ollapsed, consistent with normal or low central venous pressure. Procedure Note Skyler Kendall M.D. - 10/20/2020Forma tting of this note might be different from the original. For the complete report, see the [employer] Documents. Final Impressions 1. Bedside echo performed [facility]. The patie nt was in sinus tachycardia with a resting heart rate of 125 beats per minute the duration of the study. 2. Normal left ventricular chamber size, ejection fraction 61%. No regional wall motion abnormalities. 3. Borderline enlarged right ventricular chamber size with normal right ventricular function. 4. Estimated right ventricular systolic pressure 25 mmHg (systolic blood pressure 107 mmHg). 5. Mild-moderate mitral valve regurgitat ion. 6. Small circumferential pericardial eff usion without evidence of hemodynamic compression. 7. The inferior vena cava is small and c ollapsed, consistent with normal or low central venous pressure. Findings Bedside echo performed [facility]. Subcostal im aging significantly limited due to extreme patient discomfort and excessive gas in the abdo men. Intravenous Lumason ultrasound enhancement agent(s) administered to enhance endocar dial border definition. LEFT VENTRICLE: Normal left ventricular chamber size. Normal left ve ntricular wall thickness. Calculated 2-D biplane volumetric left ventricular ejection fra ction 61 %. Left ventricular strain assessment was performed but not reported based on inte rpreter's judgment. No regional wall motion abnormalities. Indeterminate left ventri cular diastolic function. RIGHT VENTRICLE: Borderline enlarged right ventricular ch adolfo size. Normal right ventricular systolic function. Estimated right ventricular sy stolic pressure 25 mmHg (systolic blood pressure 107 mmHg). ATRIA: Normal left atrial size. L eft atrial volume index 30 ml/m^2. Normal right atrial size by visual estimate. CARDIAC VALVES: Trileaflet aortic valve. Thickened aortic valve. No aortic valve regurgitation. Th ickened mitral valve. Mild-moderate mitral valve regurgitation. Normal pulmonary valve. I ncreased pulmonary valve systolic velocities. Mild pulmonary valve regurgitation. Normal tr icuspid valve. Trivial tricuspid valve regurgitation. OTHER ECHO FINDINGS: Normal inferior ve na cava size with normal inspiratory collapse (>50%). Normal ascending aorta diameter. Abdomin al aorta not visualized. Imaging inadequate for detection of atrial level shunt by color flow imaging. No intracardiac mass or thrombus, but the left atrial appendage cannot be visu alized adequately with transthoracic echo to exclude thrombus in this location. Small circumf erential pericardial effusion. For the complete report, see the Order-L evel Documents. Julieth Villa, B.Ch., Ph.D. CV ECHO PROCEDURES (ABNORMAL) Comprehensive Metabolic Panel (10/20/2020 6:10 AM FUNERAL COUNSELOR) P athologist Signature Potassium, S 3.7 3.6 - 5.2 10/20/2020 DTL mmol/L 7:33 AM FUNERAL COUNSELOR Sodium, S 134 (L) 135 - 145 10/20/2020 DTL mmol/L 7:33 AM FUNERAL COUNSELOR Chloride, S 97 (L) 98 - 107 10/20/2020 DTL mmol/L 7:33 AM FUNERAL COUNSELOR Bicarbonate, S 28 22 - 29 10/20/2020 DTL mmol/L 7:33 AM FUNERAL COUNSELOR Anion Gap 9 7 - 15 10/20/2020 DTL 7:33 AM FUNERAL COUNSELOR BUN (Blood Urea 10 8 - 24 10/20/2020 DTL Nitrogen), S mg/dL 7:33 AM FUNERAL COUNSELOR Creatinine 0.90 0.74 - 10/20/2020 DTL 1.35 mg/dL 7:33 AM FUNERAL COUNSELOR eGFR-Non >90 >=60 10/20/2020 DTL Black/ mL/min/BSA 7:33 AM FUNERAL COUNSELOR [place] Comment: ----ADDITIONAL INFORMATION---- Estimated GFR calculated using the 2009 CKD_EPI creatinine equation. eGFR-Black/ >90 >=60 mL/min/BSA 2020 7:33 AM FUNERAL COUNSELOR DTL Comment: ----ADDITIONAL INFORMATION---- Estimated GFR calculated using the 2009 CKD_EPI creatinine equation. Calcium, Total, S 8.0 (L) 8.6 - 10.0 mg/dL 10/20/2020 7:33 AM FUNERAL COUNSELOR DTL Glucose, S 91 70 - 140 mg/dL 10/20/2020 7:33 AM FUNERAL COUNSELOR D TL Protein, Total, S 5.7 (L) 6.3 - 7.9 g/dL 10/20/2020 7:33 A M FUNERAL COUNSELOR DTL Albumin, S 2.6 (L) 3.5 - 5.0 g/dL 10/20/2020 7:33 AM FUNERAL COUNSELOR D TL Aspartate Aminotransferase 18 8 - 48 U/L 10/20/2020 7 :33 AM FUNERAL COUNSELOR DTL (AST), S Alkaline Phosphatase, S 105 40 - 129 U/L 10/20/2020 7: 33 AM FUNERAL COUNSELOR DTL Alanine Aminotransferase 18 7 - 55 U/L 10/20/2020 7:3 3 AM FUNERAL COUNSELOR DTL (ALT), S Bilirubin, Total, S 0.9 <=1.2 mg/dL 10/20/2020 7:33 AM FUNERAL COUNSELOR DTL Specimen Anatomical Collection Method Collection Time Receive d Time (Source) Location / / Volume Laterality Blood (Blood, 10/20/2020 6:10 AM 10/20/19 7:16 Venous) FUNERAL COUNSELOR AM FUNERAL COUNSELOR Jacquie Ledezma APRN C.N.P., M.S.N. LAB BLOOD ADD-ON Performing Organization Address City/State/ZIP Code Phon e Number [facility] - 200 [place], [place] [address] [facility] [place] [address] [facility] 200 [facility] (ABNORMAL) CBC no call back, reflex T/S HGB <8 (10/20/2020 6:10 AM FUNERAL COUNSELOR) [facility] Method Time Signature Hemoglobin 8.7 (L) 13.2 - 10/20/2020 DTL 16.6 g/dL 6:51 AM FUNERAL COUNSELOR Hematocrit 27.9 (L) 38.3 - 10/20/2020 DTL 48.6 % 6:51 AM FUNERAL COUNSELOR Erythrocytes 3.55 (L) 4.35 - 10/20/2020 DTL 5.65 6:51 AM FUNERAL COUNSELOR x10(12)/L MCV 78.6 78.2 - 10/20/2020 DTL 97.9 fL 6:51 AM FUNERAL COUNSELOR RBC Distrib Width 14.6 (H) 11.8 - 10/20/2020 DTL 14.5 % 6:51 AM FUNERAL COUNSELOR Platelet Count 271 135 - 317 10/20/2020 DTL x10(9)/L 6:51 AM FUNERAL COUNSELOR Leukocytes 4.7 3.4 - 9.6 10/20/2020 DTL x10(9)/L 7:40 AM FUNERAL COUNSELOR Neutrophils 4.00 1.56 - 10/20/2020 DTL 6.45 7:40 AM FUNERAL COUNSELOR x10(9)/L Comment: Rechecked Lymphocytes 0.56 (L) 0.95 - 3.07 x10(9)/L 10/20/2020 7:40 A M FUNERAL COUNSELOR DTL Monocytes 0.12 (L) 0.26 - 0.81 x10(9)/L 10/20/2020 7:40 AM FUNERAL COUNSELOR DTL Eosinophils <0.03 0.03 - 0.48 x10(9)/L 10/20/2020 7:40 A M FUNERAL COUNSELOR DTL Basophils <0.03 0.01 - 0.08 x10(9)/L 10/20/2020 7:40 AM FUNERAL COUNSELOR DTL Specimen Anatomical Collection Method Collection Time Receive d Time (Source) Location / / Volume Laterality Blood (Blood, 10/20/2020 6:10 AM 10/20/19 21 6:41 Venous) FUNERAL COUNSELOR AM FUNERAL COUNSELOR Jacquie Ledezma APRN, C.N.P., M.S.N. LAB BLOOD NON ADD -ON Performing Organization Address City/State/ZIP Code Phon e Number [facility] - [address] Type and Screen (with reflex Antibody ID) (10/20/2020 1:07 AM FUNERAL COUNSELOR) Patholo gist Method Time Signature ABORh A Pos Not 10/20/2020 ETRM applicable 1:47 AM FUNERAL COUNSELOR Antibody Negative Negative 10/20/2020 ETRM Screen 2:05 AM FUNERAL COUNSELOR Type & Screen 10/23/2020 10/20/2020 ETRM Expiration 23:59 1:47 AM FUNERAL COUNSELOR Testing [place] DEFAULT 10/20/2020 ETRM Location 1:13 AM FUNERAL COUNSELOR Specimen Anatomical Collection Method Collection Time Receive d Time (Source) Location / / Volume Laterality Blood (Blood, 10/20/2020 1:07 AM 10/20/19 21 1:13 Venous) FUNERAL COUNSELOR AM FUNERAL COUNSELOR Julieth Villa, B.Ch., Ph.D. LAB BLOOD BANK TEST O RDERABLES Performing Organization Address City/[facility]/ZIP Code Phon e Number [facility] - [address] (ABNORMAL) Hemoglobin (10/20/2020 1:06 AM FUNERAL COUNSELOR) P athologist Signature Hemoglobin 8.5 (L) 13.2 - 16.6 10/20/2020 DTL g/dL 1:23 AM FUNERAL COUNSELOR Specimen Anatomical Collection Method Collection Time Receive d Time (Source) Location / / Volume Laterality Blood (Blood, 10/20/2020 1:06 AM 10/20/19 21 1:16 Venous) FUNERAL COUNSELOR AM FUNERAL COUNSELOR Julieth Villa, B.Ch., Ph.D. LAB BLOOD ADD-ON Performing Organization Address City/State/ZIP Code Phon e Number [facility] - [address] [place] [address] [facility] [address] Troponin T, 2H/6H, 5th Gen (10/20/2020 1:06 AM FUNERAL COUNSELOR) Patholo gist Method Time Signature Troponin T, 2 <6 <=15 ng/L 10/20/2020 DTL hr, 5th gen 1:52 AM FUNERAL COUNSELOR 2H Delta 0 ng/L 10/20/2020 DTL 1:52 AM FUNERAL COUNSELOR 2H Delta Not Changing 10/20/2020 DTL Interp 1:52 AM FUNERAL COUNSELOR Troponin T, 6 CANCELED ng/L 10/20/2020 DTL hr, 5th gen 1:52 AM FUNERAL COUNSELOR Comment: Result canceled by the ancillar y. Specimen Anatomical Collection Method Collection Time Receive d Time (Source) Location / / Volume Laterality Blood (Blood, 10/20/2020 1:06 AM 10/20/19 1:16 Venous) FUNERAL COUNSELOR AM FUNERAL COUNSELOR Narrative [facility] - 10/20/2020 1:52 AM FUNERAL COUNSELOR Specimen Information: Specimen ID: [id number] Specimen Type: Blood Specimen Collection Start Date: ??1:06 AM Specimen Received Date: 10/20/2020 ??1:16 AM Specimen ID: [id number] Specimen Type: Blood Julieth Villa, B.Ch., Ph.D. LAB BLOOD TROPONIN Performing Organization Address City/[facility]/ZIP Code Phon e Number [facility] [address] [place], [place] [address] [facility] [place] [address] [facility] [address] [facility] Lactate (10/19/2020 11:41 PM FUNERAL COUNSELOR) P athologist Signature Lactate, P 1.2 0.5 - 2.2 10/20/2020 DTL mmol/L 12:17 AM FUNERAL COUNSELOR Specimen Anatomical Collection Method Collection Time Receive d Time (Source) Location / / Volume Laterality Blood (Blood, 10/19/2020 11:41 10/19/2020 Venous) PM FUNERAL COUNSELOR 11:54 PM FUNERAL COUNSELOR Maria Bowser.Ch., Ph.D. LAB BLOOD NON ADD-ON Performing Organization Address City/State/ZIP Code Phon e Number [facility] - [address] [place], [place] [address] [place] [address] [address] Magnesium (10/19/2020 11:41 PM FUNERAL COUNSELOR) athologist Signature Magnesium, S 1.7 1.7 - 2.3 10/20/2020 DTL mg/dL 12:38 AM FUNERAL COUNSELOR Specimen Anatomical Collection Method Collection Time Receive d Time (Source) Location / / Volume Laterality Blood (Blood, 10/19/2020 11:41 10/19/2020 Venous) PM FUNERAL COUNSELOR 11:55 PM FUNERAL COUNSELOR Julieth Villa, B.Ch., Ph.D. LAB BLOOD ADD-ON Performing Organization Address City/State/[facility] Code Phon e Number [facility] - 200 [place], [place] [address] [place] [id number] [address] (ABNORMAL) Comprehensive Metabolic Panel (10/19/2020 11:41 PM FUNERAL COUNSELOR) athologist Signature Potassium, S 3.7 3.6 - 5.2 10/20/2020 DTL mmol/L 12:38 AM FUNERAL COUNSELOR Sodium, S 130 (L) 135 - 145 10/20/2020 DTL mmol/L 12:38 AM FUNERAL COUNSELOR Chloride, S 95 (L) 98 - 107 10/20/2020 DTL mmol/L 12:38 AM FUNERAL COUNSELOR Bicarbonate, S 27 22 - 29 10/20/2020 DTL mmol/L 12:38 AM FUNERAL COUNSELOR Anion Gap 8 7 - 15 10/20/2020 DTL 12:38 AM FUNERAL COUNSELOR BUN (Blood Urea 13 8 - 24 10/20/2020 DTL Nitrogen), S mg/dL 12:38 AM FUNERAL COUNSELOR Creatinine 0.87 0.74 - 10/20/2020 DTL 1.35 mg/dL 12:38 AM FUNERAL COUNSELOR eGFR-Non >90 >=60 10/20/2020 DTL Black/ mL/min/BSA 12:38 AM FUNERAL COUNSELOR [place] Comment: ----ADDITIONAL INFORMATION---- Estimated GFR calculated using the 2009 CKD_EPI creatinine equation. eGFR-Black/ >90 >=60 mL/min/BSA 2020 12:38 AM FUNERAL COUNSELOR DTL Comment: ----ADDITIONAL INFORMATION---- Estimated GFR calculated using the 2009 CKD_EPI creatinine equation. Calcium, Total, S 7.8 (L) 8.6 - 10.0 mg/dL 10/20/2020 12:3 8 AM FUNERAL COUNSELOR DTL Glucose, S 128 70 - 140 mg/dL 10/20/2020 12:38 AM FUNERAL COUNSELOR DTL Protein, Total, S 5.8 (L) 6.3 - 7.9 g/dL 10/20/2020 12:38 AM FUNERAL COUNSELOR DTL Albumin, S 2.6 (L) 3.5 - 5.0 g/dL 10/20/2020 12:38 AM FUNERAL COUNSELOR DTL Aspartate Aminotransferase 16 8 - 48 U/L 10/20/2020 1 2:38 AM FUNERAL COUNSELOR DTL (AST), S Alkaline Phosphatase, S 98 40 - 129 U/L 10/20/2020 12 :38 AM FUNERAL COUNSELOR DTL Alanine Aminotransferase 19 7 - 55 U/L 10/20/2020 12: 38 AM FUNERAL COUNSELOR DTL (ALT), S Bilirubin, Total, S 0.7 <=1.2 mg/dL 10/20/2020 12:38 A M FUNERAL COUNSELOR DTL Specimen Anatomical Collection Method Collection Time Receive d Time (Source) Location / / Volume Laterality Blood (Blood, 10/19/2020 11:41 10/19/2020 Venous) PM FUNERAL COUNSELOR 11:55 PM FUNERAL COUNSELOR Julieth Villa, B.Ch., Ph.D. LAB BLOOD ADD-ON Performing Organization Address City/State/ZIP Code Phon e Number [facility] - [address] [place], [place] [address] [facility] [place] [address] [facility] [address] (ABNORMAL) CBC no call back, reflex T/S HGB <8 (10/19/2020 11:41 PM FUNERAL COUNSELOR) [facility] Method Time Signature Hemoglobin 8.5 (L) 13.2 - 10/20/2020 DHPM 16.6 g/dL 12:11 AM FUNERAL COUNSELOR Hematocrit 26.1 (L) 38.3 - 10/20/2020 DHPM 48.6 % 12:11 AM FUNERAL COUNSELOR Erythrocytes 3.40 (L) 4.35 - 10/20/2020 DHPM 5.65 12:11 AM FUNERAL COUNSELOR x10(12)/L MCV 76.8 (L) 78.2 - 10/20/2020 DHPM 97.9 fL 12:11 AM FUNERAL COUNSELOR RBC Distrib Width 14.5 11.8 - 10/20/2020 DHPM 14.5 % 12:11 AM FUNERAL COUNSELOR Platelet Count 246 135 - 317 10/20/2020 DHPM x10(9)/L 12:11 AM FUNERAL COUNSELOR Leukocytes 3.5 3.4 - 9.6 10/20/2020 DHPM x10(9)/L 12:34 AM FUNERAL COUNSELOR Comment: Results confirmed by smear. Neutrophils 3.01 1.56 - 6.45 x10(9)/L 10/20/2020 12:34 AM FUNERAL COUNSELOR DHPM Lymphocytes 0.34 (L) 0.95 - 3.07 x10(9)/L 10/20/2020 12:34 AM FUNERAL COUNSELOR DHPM Monocytes 0.10 (L) 0.26 - 0.81 x10(9)/L 10/20/2020 12:34 AM FUNERAL COUNSELOR DHPM Eosinophils <0.03 0.03 - 0.48 x10(9)/L 10/20/2020 12:34 AM FUNERAL COUNSELOR DHPM Basophils <0.03 0.01 - 0.08 x10(9)/L 10/20/2020 12:34 AM FUNERAL COUNSELOR PM Specimen Anatomical Collection Method Collection Time Receive d Time (Source) Location / / Volume Laterality Blood (Blood, 10/19/2020 11:41 10/19/2020 Venous) PM FUNERAL COUNSELOR 11:55 PM FUNERAL COUNSELOR Julieth Villa, B.Ch., Ph.D. LAB BLOOD NON ADD-ON Performing Organization Address City/State/ZIP Code Phon e Number [facility] - [address] [place], [place] [address] [place] [address] [facility] [address] (ABNORMAL) Lipase (10/19/2020 11:36 PM FUNERAL COUNSELOR) P athologist Signature Lipase, S 8 (L) 13 - 60 U/L 10/20/2020 2:19 DTL AM FUNERAL COUNSELOR Specimen Anatomical Collection Method Collection Time Receive d Time (Source) Location / / Volume Laterality Blood (Blood, 10/19/2020 11:36 10/20/2020 2:02 Venous) PM FUNERAL COUNSELOR AM FUNERAL COUNSELOR Maria Bowser.Ch., Ph.D. LAB BLOOD ADD-ON Performing Organization Address City/State/ZIP Code Phon e Number [facility] - [address] [place], [place] [address] [facility] [place] [address] [facility] 200 [facility] ECG 12 Lead (10/19/2020 11:16 PM FUNERAL COUNSELOR) P athologist Signature Ventricular Rate 127 BPM MUSE ECG/Min DE Interval 174 ms MUSE QRSD Interval 86 ms MUSE QT Interval 298 ms MUSE QTC Interval 433 ms MUSE P [place] 51 degrees MUSE R [place] 13 degrees MUSE T Wave [place] -29 degrees MUSE Specimen Anatomical Collection Method Collection Time Receive d Time (Source) Location / / Volume Laterality 10/19/2020 11:16 10/20/2020 6:27 PM FUNERAL COUNSELOR AM FUNERAL COUNSELOR Impressions MUSE - 10/20/2020 6:12 AM FUNERAL COUNSELOR Sinus tachycardia Nonspecific ST and T wave abnormality When compared with ECG of 19-OCT-2020 22 :47, ST no longer elevated in Anterior leads Reviewed by HAROON Parks Narrative This result has an attachment that is no t available. Procedure Note Atul Higuera Jr., M.D. - 10/20/2020For matting of this note might be different from the original. IMPRESSION: Sinus tachycardia Nonspecific ST and T wave abnormality When compared with ECG of 19-OCT-2020 22 :47, ST no longer elevated in Anterior leads Reviewed by HAROON Parks Julieth Villa, B.Ch., Ph.D. ECG ORDERABLES Performing Organization Address City/State/ZIP Code Phon e Number MUSE MUSE NA Troponin T, Baseline, 5th gen (10/19/2020 11:05 PM FUNERAL COUNSELOR) P athologist Signature Troponin T, <6 <=15 ng/L 10/19/2020 DTL Baseline, 5th 11:56 PM FUNERAL COUNSELOR gen Specimen Anatomical Collection Method Collection Time Receive d Time (Source) Location / / Volume Laterality Blood (Blood, 10/19/2020 11:05 10/19/2020 Venous) PM FUNERAL COUNSELOR 11:24 PM FUNERAL COUNSELOR Julieth Villa, B.Ch., Ph.D. LAB BLOOD TROPONIN Performing Organization Address City/[facility]/ZIP Code Phon e Number [facility] - [address] [place], [place] [address] [facility] [place] [address] [facility] [address] ECG 12 Lead (10/19/2020 10:47 PM FUNERAL COUNSELOR) P athologist Signature Ventricular Rate 126 BPM MUSE ECG/Min DE Interval 168 ms MUSE QRSD Interval 92 ms MUSE QT Interval 392 ms MUSE QTC Interval 567 ms MUSE P [place] 48 degrees MUSE R [place] 12 degrees MUSE T Wave [place] -37 degrees MUSE Specimen Anatomical Collection Method Collection Time Receive d Time (Source) Location / / Volume Laterality 10/19/2020 10:47 10/20/2020 6:10 PM FUNERAL COUNSELOR AM FUNERAL COUNSELOR Impressions MUSE - 10/20/2020 6:10 AM FUNERAL COUNSELOR Sinus tachycardia ST elevation consider anterior injury or acute infarct ACUTE [place] / STEMI Nonspecific T wave abnormality When compared with ECG of 01-OCT-2020 01 :56, ST elevation now present in Anterior damion ds Emergent Criteria: Communicated to ??Jayde Foster on October 19 @ 23:[address] Elevation in V2 & V3 verses movement. Reviewed by HAROON Parks Narrative This result has an attachment that is no t available. Procedure Note Atul Higuera Jr., M.D. - 10/20/2020For matting of this note might be different from the original. IMPRESSION: Sinus tachycardia ST elevation consider anterior injury or acute infarct ACUTE [place] / STEMI Nonspecific T wave abnormality When compared with ECG of 01-OCT-2020 01 :56, ST elevation now present in Anterior damion ds Emergent Criteria: Communicated to Julieth Foster on October 19 @ 23:[address] Elevation in V2 & V3 verses movement. Reviewed by HAROON Parks Julieth Villa, Maria.Franklin., Ph.D. ECG ORDERABLES Performing Organization Address City/[facility]/ZIP Code Phon e Number MUSE MUSE NA Bacteria / Maxwell Culture, Blood #2 (10/18/2020 2:10 PM FUNERAL COUNSELOR) [facility] Method Time Signature Bacteria/Jane No growth 10/23/2020 DTL da Culture, after 5 3:02 PM FUNERAL COUNSELOR Blood days of incubation. Specimen (Source) Anatomical Collection Method Collection Time Re ceived Time Location / / Volume Laterality Blood (Blood, 10/18/2020 2:10 10/18/2020 2:33 Peripheral Draw) PM FUNERAL COUNSELOR PM FUNERAL COUNSELOR Comment: Specimen Source Site: Blood Narrative [facility] - [facility] - 10/23/2020 3:02 PM FUNERAL COUNSELOR Specimen Information: Specimen ID: [id number] Specimen Source: Blood, Peripheral Draw Specimen Comment: Specimen Source Site: Blood Specimen Collection Start Date: ??2:11 PM Specimen Received Date: 10/18/2020 ??2:33 PM Specimen ID: [id number] Specimen Source: Blood, Peripheral Draw Specimen Comment: Specimen Source Site: Blood Specimen Collection Start Date: ??2:10 PM Specimen Received Date: 10/18/2020 ??2:33 PM Specimen ID: [id number] Specimen Source: Blood, Peripheral Draw Specimen Comment: Specimen Source Site: Blood Specimen Collection Start Date: ??2:10 PM Specimen Received Date: 10/18/2020 ??2:33 PM Brian Maguire APRN, C.N.P. LAB MICROBIOLOGY - GENERAL O RDERABLES Performing Organization Address City/State/ZIP Code Phon e Number [facility] - [facility] [address] [place], [place] [address] [place] [address] [facility] [address] Bacteria / Maxwell Culture, Blood #1 (10/18/2020 2:03 PM FUNERAL COUNSELOR) [facility] Method Time Signature Bacteria/Jane No growth 10/23/2020 DTL da Culture, after 5 3:02 PM FUNERAL COUNSELOR Blood days of incubation. Specimen (Source) Anatomical Collection Method Collection Time Re ceived Time Location / / Volume Laterality Blood (Blood, 10/18/2020 2:03 10/18/2020 2:32 Peripheral Draw) PM FUNERAL COUNSELOR PM FUNERAL COUNSELOR Comment: Specimen Source Site: Blood Narrative [facility] - [facility] - 10/23/2020 3:02 PM FUNERAL COUNSELOR Specimen Information: Specimen ID: [id number] Specimen Source: Blood, Peripheral Draw Specimen Comment: Specimen Source Site: Blood Specimen Collection Start Date: 1 ??2:04 PM Specimen Received Date: 10/18/2020 ??2:32 PM Specimen ID: [id number] Specimen Source: Blood, Peripheral Draw Specimen Comment: Specimen Source Site: Blood Specimen Collection Start Date: 1 ??2:03 PM Specimen Received Date: 10/18/2020 ??2:32 PM Specimen ID: [id number] Specimen Source: Blood, Peripheral Draw Specimen Comment: Specimen Source Site: Blood Specimen Collection Start Date: 1 ??2:03 PM Specimen Received Date: 10/18/2020 ??2:32 PM Brian Maguire APRN C.N.P. LAB MICROBIOLOGY - GENERAL O RDERABLES Performing Organization Address City/State/[facility] Code Phon e Number [facility] - [address] [place] [address] [facility] [place] [address] [facility] [address] [facility] VRE PCR (10/18/2020 12:48 PM FUNERAL COUNSELOR) [facility] Method Time Signature Specimen Swab, 10/19/2020 DTL Source Perirectal 2:12 PM FUNERAL COUNSELOR VRE PCR Negative Not 10/19/2020 DTL Applicable 2:12 PM FUNERAL COUNSELOR Comment: ----ADDITIONAL INFORMATION---- This test was developed using an analyte specific reagent. Its performance characteristics were determined by [facility] in a manner consistent with CLIA requirements. This test has not bee n cleared or approved by the U.S. Food and Drug Administration. Specimen Anatomical Collection Method Collection Time Receive d Time (Source) Location / / Volume Laterality Varies 10/18/2020 12:48 10/18/2020 1:17 (Perirectal) PM FUNERAL COUNSELOR PM FUNERAL COUNSELOR Jessenia Thakkar M.D. LAB MICROBIOLOGY - GENERAL O RDERABLES Performing Organization Address City/State/ZIP Code Phon e Number [facility] - [address] [place], [place] [address] [facility] [place] [address] [facility] [address] Interpretation of Outside CT Abdomen and or Pelvis (10/18/2020 12:10 PM FUNERAL COUNSELOR) Anatomical Region Laterality Modality Abdomen, Pelvis, Abdominal RST LOS, Abdominal ARZ LOS, N/A Computed Tomography Abdominal FLA LOS, Other Specimen (Source) Anatomical Collection Method Collection Time Re ceived Time Location / / Volume Laterality 10/18/2020 1:36 PM FUNERAL COUNSELOR Impressions 10/18/2020 1:47 PM FUNERAL COUNSELOR Extensive residual multiloculated fluid collections in the pancreas bed/left upper quadrant are slightly dec reased in size compared to recent prior exam. Narrative 10/18/2020 1:47 PM FUNERAL COUNSELOR EXAM: ??INTERPRETATION OF OUTSIDE CT ABDOMEN AND OR PELVIS with IV contrast dated 10/17/2020 COMPARISON: ??[facility] CT abdomen pel vis 10/05/[address] abdomen pelvis 09/30/2020 FINDINGS: ?? We demonstration of extensive findings o f necrotizing pancreatitis with multiple upper abdominal fluid collections. Fluid and gas collection along the length of the pancreas measures approximately 7.5 x 2.0 cm compared to 7.5 x 2.4 cm previously. Fluid collection anterior to the spleen has also slightly decreased in size measuring 6.0 x 3.9 cm compared to 7.3 x 4.3 cm previously. Additional collections medial/posterior to the sple en and adjacent to the gastric fundus are slightly smaller as well. Pancreas uncinate mass is unchanged laura uring 2.6 cm in maximal diameter. CBD stent remains in place. Expected pne umobilia. Similar mild central intrahepatic biliary dilatation, primari ly on the left. 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 Liver, gallbladder, spleen, adrenals and kidneys are otherwise unremarkable. Procedure Note Kuldeep Correia M.D. - 10/18/2020Formatti ng of this note might be different from the original. EXAM: INTERPRETATION OF OUTSIDE CT ABDOM EN AND OR PELVIS with IV contrast dated 10/17/2020 COMPARISON: [facility] CT abdomen pelvi s 10/05/[address] abdomen pelvis 09/30/2020 FINDINGS: We demonstration of extensive findings o f necrotizing pancreatitis with multiple upper abdominal fluid collections. Fluid and gas collection along the length of the pancreas measures approximately 7.5 x 2.0 cm compared to 7.5 x 2.4 cm previously. Fluid collection anterior to the spleen has also slightly decreased in size measuring 6.0 x 3.9 cm compared to 7.3 x 4.3 cm previously. Additional collections medial/posterior to the sple en and adjacent to the gastric fundus are slightly smaller as well. Pancreas uncinate mass is unchanged laura uring 2.6 cm in maximal diameter. CBD stent remains in place. Expected pne umobilia. Similar mild central intrahepatic biliary dilatation, primari ly on the left. 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 Liver, gallbladder, spleen, adrenals and kidneys are otherwise unremarkable. IMPRESSION: Extensive residual multiloculated fluid collections in the pancreas bed/left upper quadrant are slightly dec reased in size compared to recent prior exam. Brian Maguire APRN, C.N.P. IMG CT PROCEDURES documented in this encounter Visit Diagnoses Diagnosis Malignant Neoplasm Of Pancreas (HCC) - P rimary documented in this encounter Administered Medications Inactive Administered Medications - up to 3 most recent administrations Medication Order MAR Action Action Date Dose Rate Site acetaminophen tablet 1,000 mg Given 10/21/2020 2:14 AM FUNERAL COUNSELOR 1,000 mg (TYLENOL) 1,000 mg, oral, Every 6 hours PRN, fever, Starting on 10/19/20 at 1150 acetaminophen tablet 500 mg (TYLENOL) Given 10/18/2020 12:42 PM FUNERAL COUNSELOR 500 mg 500 mg, oral, Every 6 hours, First dose on 10/18/20 at 1230 bisacodyL suppository 10 mg (DULCOLAX) Given 10/20/2020 8:44 AM FUNERAL COUNSELOR 10 mg 10 mg, rectal, Daily, First dose on 10/19/20 at 1045 Given 10/19/2020 11:20 AM FUNERAL COUNSELOR 10 mg D5W and NaCl 0.9 % bolus 500 mL New Bag 10/22/2020 3:47 PM FUNERAL COUNSELOR 500 mL 250 mL/hr 500 mL, intravenous, at 250 mL/hr, Administer over 2 Hours, Once, On Sandra 10/22/20 at 1545, For 1 dose D5W infusion 10-250 mL/hr, intravenous, As needed, Medications Inco mpatible with 0.9% NaCL, Starting on Mon10/18/20 at 1207, Infuse at the same rat e as the piggyback until tubing clears or up to a volume of 20 mL pre and post infusion for medications incompatible with 0.9% NaCL. Use 100 mL bag then disca rd. docusate sodium-benzocaine enema 1 enema Given 10/21/2020 5:46 P M FUNERAL COUNSELOR 1 enema (ENEMEEZ PLUS) 1 enema, rectal, Once, On Mon10/21/20 at 1500, For 1 dose docusate sodium-benzocaine enema 1 enema Given 10/21/2020 9:09 P M FUNERAL COUNSELOR 1 enema (ENEMEEZ PLUS) 1 enema, rectal, Once, On Mon10/21/20 at 1915, For 1 dose enoxaparin injection 80 mg Given 10/22/2020 9:22 AM FUNERAL COUNSELOR 80 mg Right Lower Abdomen (LOVENOX) 80 mg, subcutaneous, 2 times daily, First dose on Mon10/18/20 at 2100 Given 10/21/2020 9:09 PM FUNERAL COUNSELOR 80 mg Left Lower Abdomen Given 10/21/2020 10:29 AM FUNERAL COUNSELOR 80 mg Righ t Lower Abdomen hyaluronidase 15 Units in Subsequent Bag 10/21/2020 12:36 PM FUNERAL COUNSELOR 3 Un its Other sodium chloride (PF) 0.9 % injection 15 Units, subcutaneous, Administer over 1 Minutes, Once, On Mon10/21/20 at 1200, For 1 dose, Do not inject into infected or cancerous skin areas. ? ? Administer as soon as possible following extravasation, preferably within 60 minutes of infiltration. ? ? Use five single syringes, each with 25 gauge needle, for administration. ? ? Prepare skin with alcohol wipe, allow site to air dry. ? ? Inject 0.2 mL at each of five sites subcutaneously (1 mL total) equidistant around the edge of the extravasation site. Subsequent Bag 10/21/2020 12:35 PM FUNERAL COUNSELOR 3 Units Ot her Subsequent Bag 10/21/2020 12:34 PM FUNERAL COUNSELOR 3 Units Ot her HYDROmorphone (PF) injection 0.2 mg (DIL AUDID) 0.2 mg, intravenous, Every 1 hour PRN, severe pain or score 7-10 of 10, for breakthrough if pain is not improved wit h oral dilaudid, Starting on Mon10/20/20 at 1001 HYDROmorphone tablet 2 mg (DILAUDID) Given 10/20/2020 1:03 PM FUNERAL COUNSELOR 2 mg 2 mg, oral, Every 4 hours PRN, moderate pain or score 4-6 of 10, Starting on Mon10/20/20 at 1000 HYDROmorphone tablet 3 mg (DILAUDID) Given 10/20/2020 9:40 AM FUNERAL COUNSELOR 3 mg 3 mg, oral, Every 3 hours PRN, moderate pain or score 4-6 of 10, Starting on Mon10/18/20 at 1244 Given 10/20/2020 3:39 AM FUNERAL COUNSELOR 3 mg Given 10/19/2020 10:54 PM FUNERAL COUNSELOR 3 mg lactated Ringer's bolus 500 mL New Bag 10/20/2020 1:23 AM FUNERAL COUNSELOR 500 mL 500 mL/hr 500 mL, intravenous, at 500 mL/hr, Administer over 1 Hours, Once, On Mon10/20/20 at 0015, For 1 dose lactated Ringer's bolus 500 mL New Bag 10/20/2020 1:08 PM FUNERAL COUNSELOR 500 mL 500 mL/hr 500 mL, intravenous, at 500 mL/hr, Administer over 1 Hours, Once, On Mon10/20/20 at 1030, For 1 dose lactated Ringer's bolus 500 mL New Bag 10/20/2020 10:18 PM FUNERAL COUNSELOR 500 mL 500 mL/hr 500 mL, intravenous, at 500 mL/hr, Administer over 1 Hours, Once, On Mon10/20/20 at 2215, For 1 dose lactated Ringer's bolus 500 mL New Bag 10/21/2020 5:25 AM FUNERAL COUNSELOR 500 mL 500 mL/hr 500 mL, intravenous, at 500 mL/hr, Administer over 1 Hours, Once, On Mon10/21/20 at 0530, For 1 dose lactulose solution 20 g (CHRONULAC) Given 10/19/2020 4:01 PM FUNERAL COUNSELOR 20 g 20 g, oral, Once, On Mon10/19/20 at 1515, For 1 dose lactulose solution 20 g (CHRONULAC) Given 10/19/2020 6:51 PM FUNERAL COUNSELOR 20 g 20 g, oral, Once, On Mon10/19/20 at 1830, For 1 dose lidocaine 5 % 1 patch Medication Applied 10/20/2020 12:15 AM FUNERAL COUNSELOR 1 pa tch Other (LIDODERM) 1 patch, transdermal, Administer over 12 Hours, Daily, First dose on Mon10/20/20 at 0000, Remove after 12 hours. LORazepam injection 0.5 mg (ATIVAN) Given 10/22/2020 12:38 AM FUNERAL COUNSELOR 0.5 mg 0.5 mg, intravenous, Every 4 hours PRN, anxiety, sleep, nausea, vomiting, Starting on Mon10/21/20 at 0758, For intravenous use, dilute with equal volume of 0.9% NS Given 10/21/2020 6:51 PM FUNERAL COUNSELOR 0.5 mg Given 10/21/2020 8:07 AM FUNERAL COUNSELOR 0.5 mg magnesium citrate solution 148 mL (CITRO MA) Given 10/21/2020 9:58 PM FUNERAL COUNSELOR 148 mL 148 mL, oral, Once, On Mon10/21/20 at 1915, For 1 dose magnesium citrate solution 296 mL (CITRO MA) Given 10/21/2020 5:46 PM FUNERAL COUNSELOR 296 mL 296 mL, oral, Once, On Mon10/21/20 at 1500, For 1 dose magnesium sulfate in D5W IVPB 1 g New Bag 10/21/2020 12:13 PM FUNERAL COUNSELOR 1 g 100 mL/hr 1 g, intravenous, at 100 mL/hr, Administer over 60 Minutes, Once, On Mon10/21/20 at 0845, For 1 dose, Over 1 hours. premix bag NaCl 0.9% infusion New Bag 10/21/2020 3:00 PM FUNERAL COUNSELOR 100 mL/hr 100 mL/hr 10-250 mL/hr, intravenous, As needed, Between Consecutive Piggyback Medications, Starting on Mon10/18/20 at 1207, Infuse at the same rate as the piggyback until tubing clears or up to a volume of 20 mL. Select for IV medication administration when no maintenance IV available or when IV medications are not compatible with maintenance fluid. NaCl 0.9% infusion 10-250 mL/hr, intravenous, As needed, Post Medications (Hazardous/Low Fluid Volume), Starting on Mon10/18/20 at 1207, Infuse at the same rate as the medication until tubing cleared of medication, then discard. ondansetron (PF) injection 8 mg (ZOFRAN) Given 10/21/2020 7:50 PM FUNERAL COUNSELOR 8 mg 8 mg, intravenous, Every 8 hours PRN, nausea, vomiting, Starting on Mon10/21/20 at 1908 ondansetron tablet 8 mg (ZOFRAN) Given 10/18/2020 6:55 PM FUNERAL COUNSELOR 8 mg 8 mg, oral, Every 8 hours PRN, nausea, vomiting, Starting on Mon10/18/20 at 1220 oxyCODONE IR tablet 10 mg (ROXICODONE) Given 10/22/2020 1:34 PM FUNERAL COUNSELOR 10 mg 10 mg, oral, Every 3 hours PRN, moderate pain or score 4-6 of 10, severe pain or score 7-10 of 10, Starting on Mon10/20/20 at 1506 Given 10/22/2020 10:27 AM FUNERAL COUNSELOR 10 mg Given 10/22/2020 5:22 AM FUNERAL COUNSELOR [address] tablet 40 mg (PROTONIX) Given 10/22/2020 7:39 AM FUNERAL COUNSELOR 40 mg 40 mg, oral, Daily before breakfast, First dose on Mon10/19/20 at 0700, For 350 days, Swallow whole. Do NOT crush, chew, or split tablet. Given 10/21/2020 10:29 AM FUNERAL COUNSELOR 40 mg Given 10/20/2020 6:11 AM FUNERAL COUNSELOR 40 mg piperacillin-tazobactam in dextrose New Bag 10/19/2020 6:21 AM FUNERAL COUNSELOR 3.375 g 100 mL/hr (iso-osm) IVPB 3.375 g (ZOSYN) 3.375 g, intravenous, at 100 mL/hr, Administer over 0.5 Hours, Every 6 hours, First dose on Mon10/18/20 at 1300, premix bag, Drug Monitoring Program: Pharmacist to adjust medication dosing based on indication and drug clearance factors., Indications: Intra-abdominal infection, community acquired New Bag 10/19/2020 1:28 AM FUNERAL COUNSELOR 3.375 g 100 mL/hr New Bag 10/18/2020 6:15 PM FUNERAL COUNSELOR 3.375 g 100 mL/hr polyethylene glycol powder packet 17 g Given 10/20/2020 8:44 AM FUNERAL COUNSELOR 17 g (MIRALAX) 17 g, oral, Daily, First dose on Mon10/19/20 at 0900, Dissolve in 240 mLs (8 ounces) of water prior to giving. Avoid mixing with starch-based thickened liquids. Given 10/19/2020 8:00 AM FUNERAL COUNSELOR 17 g polyethylene glycol powder packet 17 g Given 10/22/2020 9:22 AM FUNERAL COUNSELOR 17 g (MIRALAX) 17 g, oral, 2 times daily, First dose (after last modification) on Mon10/20/20 at 2100, Dissolve in 240 mLs (8 ounces) of water prior to giving. Avoid mixing with starch-based thickened liquids. Given 10/21/2020 9:09 PM FUNERAL COUNSELOR 17 g Given 10/21/2020 10:29 AM FUNERAL COUNSELOR 17 g potassium chloride ER tablet 10 mEq Given 10/21/2020 7:59 PM FUNERAL COUNSELOR 10 mEq (KLORCON/K-TAB) 10 mEq, oral, Once, On Mon10/21/20 at 1815, For 1 dose, Swallow whole. Do NOT crush, chew, or split tablet., Monitor the following for replacement: Potassium, Replace Potassium per: Standard Schedule potassium chloride ER tablet 20 mEq Given 10/22/2020 3:47 PM FUNERAL COUNSELOR 20 mEq (KLORCON/K-TAB) 20 mEq, oral, Once, On Mon10/22/20 at 1545, For 1 dose, Swallow whole. Do NOT crush, chew, or split tablet. potassium chloride IVPB 10 mEq New Bag 10/21/2020 3:04 PM FUNERAL COUNSELOR 10 mEq 100 mL/hr 10 mEq, intravenous, at 100 mL/hr, Administer over 60 Minutes, Every 1 hour, First dose on Mon10/21/20 at 0530, For 4 doses, For K 3-3.4 mEq/L - give total of 40 mEq premix bag, Monitor the following for replacement: Potassium, Replace Potassium per: Standard Schedule New Bag 10/21/2020 10:29 AM FUNERAL COUNSELOR 10 mEq 100 mL/hr New Bag 10/21/2020 6:09 AM FUNERAL COUNSELOR 10 mEq 100 mL/hr prochlorperazine tablet 10 mg (COMPAZINE ) Given 10/21/2020 4:44 AM FUNERAL COUNSELOR 10 mg 10 mg, oral, Every 6 hours PRN, nausea, vomiting, Starting on Mon10/18/20 at 1221, For 29 days Given 10/19/2020 10:54 PM FUNERAL COUNSELOR 10 mg sennosides tablet 8.6 mg (SENOKOT) Given 10/19/2020 8:00 AM FUNERAL COUNSELOR 8.6 mg 8.6 mg, oral, Daily, First dose on Mon10/19/20 at 0900 sennosides-docusate sodium 8.6-50 mg per Given 021 10:29 AM FUNERAL COUNSELOR 2 tablets tablet 2 tablet (SENOKOT-S) 2 tablet, oral, 2 times daily, First dose on Mon10/19/20 at 2100 Given 10/20/2020 9:45 PM FUNERAL COUNSELOR 2 tablets Given 10/20/2020 8:44 AM FUNERAL COUNSELOR 2 tablets sennosides-docusate sodium 8.6-50 mg per Given 10/22/2020 9: 22 AM FUNERAL COUNSELOR 3 tablets tablet 3 tablet (SENOKOT-S) 3 tablet, oral, 2 times daily, First dose (after last modification) on Mon10/21/20 at 2100 Given 10/21/2020 9:09 PM FUNERAL COUNSELOR 3 tablets sodium chloride 0.9 % injection 10 mL Given 10/22/2020 12:38 AM FUNERAL COUNSELOR 10 mL 10 mL, intravenous, As needed, line care, Starting on Mon10/18/20 at 1221, Peripheral Intravenous Catheter and Rapid Infusion Catheter, prior to blood sampling, post blood transfusion or post blood sampling Given 10/19/2020 1:29 AM FUNERAL COUNSELOR 10 mL sodium chloride 0.9 % injection 3 mL Given 10/21/2020 7:51 PM FUNERAL COUNSELOR 3 mL 3 mL, intravenous, As needed, line care, Peripheral Intravenous Catheter and Rapid Infusion Catheter, Starting on Mon10/18/20 at 1207, Prior to and following infusion and between multiple consecutive infusions. Given 10/19/2020 6:21 AM FUNERAL COUNSELOR 3 mL sodium chloride 0.9 % injection 3 mL Given 10/22/2020 9:23 AM FUNERAL COUNSELOR 3 mL 3 mL, intravenous, Every 12 hours scheduled, First dose on Mon10/18/20 at 2100, Peripheral Intravenous Catheter and Rapid Infusion Catheter, when no infusion to maintain patency Given 10/20/2020 9:44 PM FUNERAL COUNSELOR 3 mL Given 10/20/2020 8:44 AM FUNERAL COUNSELOR 3 mL sulfur hexafluoride microspheres injection Given 10/20/2020 12:0 0 PM FUNERAL COUNSELOR 3 mL (LUMASON) intravenous, As needed, contrast, Starting on Mon10/20/20 at 1200, See protocol. Reconstitute each 25 mg vial with 5 mL NS. documented in this encounter Active and Recently Administered Medications Times are shown in FUNERAL COUNSELOR. Scheduled Medication Order 10/20/2020 10/21/2020 10/22/2020 bisacodyL suppository 10 mg (DULCOLAX) 0844 (Given - P rovider: Vianca Camacho R.N., O.C.N.) 1032 (Not Given - Provider: Rachel fischer RMariajose - Reason: Patient/family refused) 0923 (Not Given - Provider: Shaniqua warner RMariajose, O.C.N. - Reason: Patient/family refused) 10 mg, rectal, Daily, First dose on 10/19/20 at 1045 D5W and NaCl 0.9 % bolus 500 mL (COMPLETED) 1547 (New Bag - Provider: Sheree Mars RMariajose) 500 mL, intravenous, at 250 mL/hr, Admin ister over 2 Hours, Once, On Sandra 10/22/20 at 1545, For 1 dose docusate sodium-benzocaine enema 1 enema (ENEMEEZ PLUS) (COM PLETED) 174 (Given - Provider: Elizabeth Tee RMariajose - Comment: Patient refused until now.) 1 enema, rectal, Once, On Mon10/21/20 at 1500, For 1 dose docusate sodium-benzocaine enema 1 enema (ENEMEEZ PLUS) (COM PLETED) 2108 (Given - Provider: Elizabeth Tee RRiazN.) 1 enema, rectal, Once, On Mon10/21/20 at 1915, For 1 dose enoxaparin injection 80 mg (LOVENOX) 0025 (Held by pro vider - Provider: Allen Sutton, B.Ch., Ph.D. - Comment: Anemia, RO bleed)0852 (Unheld by provider - Provider: Jacquie Hodgson APRN, C.N.P., M.S.N.)0943 (Given - Provider: Grecia Camacho R.N., O.C.N.) 102 (Given - Provider: Rachel ferguson, R.N. - Comment: unable to take morning meds without vomiting, pt refused)2108 (Given - Provider: Elizabeth Tee RRiazNRiaz) 0922 (Given - Provider: Shaniqua Marcelo R.N., O.C.N.) 80 mg, subcutaneous, 2 times daily, First dose on Mon10/18/20 at 2100 2147 (Given - Provider: Mickey Means D.N.P., R.N.) hyaluronidase 15 Units in sodium chloride (PF) 0.9 % injecti on (COMPLETED) 1232 (Given - Provider: Rachel Lin R.N. - Comment: right hand)1233 (Subsequent Bag - Provider: Rachel Lin R.N.)1234 (Subsequent Bag - Provider: Rachel Lin R.N.)1235 (Subsequent Bag - Provider: Rachel Lin R.N.) 15 Units, subcutaneous, Administer over 1 Minutes, Once, On Mon10/21/20 at 1200, For 1 dose, Do not inject into infected or cancerous skin areas. ? ? Administer as soon as possible following extravasati 1236 (Subsequent Bag - Provider: Rachel Lin R.N.) on, preferably within 60 minutes of infi ltration. ? ? Use five single syringes, each with 25 gauge needle, for administration. ? ? Prepare skin with alcohol wipe, allow site to air dry. ? ? Inject 0.2 m L at each of five sites subcutaneously ( 1 mL total) equidistant around the edge of the extravasation site. lactated Ringer's bolus 500 mL (COMPLETED) 0123 ([facility] ag - Provider: Shira Rodriguez RJohn. - Comment: busy, unaware of order) 500 mL, intravenous, at 500 mL/hr, Admin ister over 1 Hours, Once, On Mon10/20/20 at 0015, For 1 dose lactated Ringer's bolus 500 mL (COMPLETED) 1308 ([facility] ag - Provider: Vianca Camacho R.N., O.C.N.) 500 mL, intravenous, at 500 mL/hr, Admin ister over 1 Hours, Once, On Mon10/20/20 at 1030, For 1 dose lactated Ringer's bolus 500 mL (COMPLETED) 2218 ([facility] ag - Provider: Mickey Means D.N.P., R.N.) 500 mL, intravenous, at 500 mL/hr, Admin ister over 1 Hours, Once, On Mon10/20/20 at 2215, For 1 dose lactated Ringer's bolus 500 mL (COMPLETED) 0525 (New Bag - Provider: Mickey Means D.N.P., R.N.) 500 mL, intravenous, at 500 mL/hr, Admin ister over 1 Hours, Once, On Mon10/21/20 at 0530, For 1 dose lidocaine 5 % 1 patch (LIDODERM) 0015 (Medication Appl ied - Provider: Shira Rodriguez R.N. - Comment: mid abdomen)1302 (Medication Removed - Provider: Vianca Camacho R.N., O.C.NRiaz - Comment: removed from abd.) 1037 (Not Given - Provider: Rachel Lin R.N. - Reason: Patient/family refused) 0924 (Not Given - Provider: Shaniqua Macrelo R.N., O.C.N. - Reason: Patient/family refused) 1 patch, transdermal, Administer over 12 Hours, Daily, First dose on Mon10/20/20 at 0000, Remove after 12 hours. magnesium citrate solution 148 mL (CITROMA) (COMPLETED) 2157 (Given - Provider: Elizabeth Tee R.N. - Comment: Given post nausea control) 148 mL, oral, Once, On Mon10/21/20 at 1915, For 1 dose magnesium citrate solution 296 mL (CITROMA) (COMPLETED) 1746 (Given - Provider: Elizabeth Tee R.N. - Comment: Patient refused until now.) 296 mL, oral, Once, On Mon10/21/20 at 1500, For 1 dose magnesium sulfate in D5W IVPB 1 g (COMPLETED) 1213 (New Bag - Provider: Rachel Lin R.N.) 1 g, intravenous, at 100 mL/hr, Administ er over 60 Minutes, Once, On Mon10/21/20 at 0845, For 1 dose, Over [address] tablet 40 mg (PROTONIX) 06 (Given - Provider: Shira Rodriguez R.N.) 1029 (Given - Provider: Rachel ferguson R.N. - Comment: unable to take morning meds without vomiting, pt refused) 738 (Given - Provider: Shaniqua Marcelo R.N., O.C.N.) 40 mg, oral, Daily before breakfast, Fir st dose on Mon10/19/20 at 0700, For 350 days, Swallow whole. Do NOT crush, chew, or split tablet. polyethylene glycol powder packet 17 g (MIRALAX) ([facility]) 0844 (Given - Provider: Vianca Camacho R.N., O.C.N.) 17 g, oral, Daily, First dose on 10/19 at 0900, Dissolve in 240 mLs (8 ounces) of water prior to giving. Avoid mixing with starch-based thickened liquids. polyethylene glycol powder packet 17 g (MIRALAX) 2149 (Given - Provider: Mickey Means D.N.P., R.NRiaz) 1029 (Given - Provider: Rachel ferguson R.N. - Comment: unable to take morning meds without vomiting, pt refused)2108 (Given - Provider: Elizabeth Tee R.N.) 09 (Given - Provider: Shaniqua Marcelo R.N., O.C.N.) 17 g, oral, 2 times daily, First dose (a fter last modification) on Mon10/20/20 at 2100, Dissolve in 240 mLs (8 ounces) of water prior to giving. Avoid mixing with starch-based thickened liquids. potassium chloride ER tablet 10 mEq (KLORCON/K-TAB) (COMPLET ED) 195 (Given - Provider: Elizabeth Tee R.N. - Comment: Given after nausea was controlled.) 10 mEq, oral, Once, On Mon10/21/20 at 18 15, For 1 dose, Swallow whole. Do NOT crush, chew, or split tablet., Monitor the following for replacement: Potassium, Replace Potassium per: Standard Schedule potassium chloride ER tablet 20 mEq (KLORCON/K-TAB) (COMPLETED) 1547 (Given - Provider: Sheree Mars R.N.) 20 mEq, oral, Once, On Sandra 10/22/20 at 15 45, For 1 dose, Swallow whole. Do NOT crush, chew, or split tablet. potassium chloride IVPB 10 mEq () 0609 (New Bag - Provider: Sandra Michael.N.PRiaz, R.N.)1029 (New Bag - Provider: Rachel Lin R.N.)1504 (New Bag - Provider: Rachel Lin R.N. - Comment: running slower due to pain with infusion, verified with rachel Alberto, RN) 10 mEq, intravenous, at 100 mL/hr, Admin ister over 60 Minutes, Every 1 hour, First dose on Mon10/21/20 at 0530, For 4 doses, For K 3-3.4 mEq/L - give total of 40 mEq premix bag, Monitor the following fo 1927 (N ot Given - Provider: Elizabeth Tee R.N. - Reason: Discontinued) r replacement: Potassium, Replace Potassium per: Standard Schedu le sennosides-docusate sodium 8.6-50 mg per tablet 2 tabl et (SENOKOT-S) (CANCELED) 0844 (Given - Provider: Vianca Camacho R.N., O.C.N.)2145 (Given - Provider: Sandra Michael.Carlos.PRiaz, R.N.) 1029 (Given - Provider: Rachel ferguson RRiazNRiaz - Comment: unable to take morning meds without vomiting, pt refused) 2 tablet, oral, 2 times daily, First dose on Mon10/19/20 at 2100 sennosides-docusate sodium 8.6-50 mg per tablet 3 tablet (SE NOKOT-S) 2108 (Given - Provider: Elizabeth Tee, R.N.) 0922 (Given - Provider: Shaniqua Marcelo R.N., O.C.N.) 3 tablet, oral, 2 times daily, First dos e (after last modification) on Mon10/21/20 at 2100 sodium chloride 0.9 % injection 3 mL 0844 (Given - Pro vider: Vianca Camacho R.N., O.C.N.)2144 (Given - Provider: Mickey Means D.N.P., R.N.) 1037 (Not Given - Provider: Rachel Lin R.N. - Reason: Patient/family refused)2103 (Not Given - Provider: Elizabeth Tee R.N. - Reason: Order parameters not met) 0923 (Given - Provider: Shaniqua Marcelo R.N., O.C.N.) 3 mL, intravenous, Every 12 hours schedu led, First dose on Mon10/18/20 at 2100, Peripheral Intravenous Catheter and Rapid Infusion Catheter, when no infusion to maintain patency PRN Medication Order 10/20/2020 10/21/2020 10/22/2020 acetaminophen tablet 1,000 mg (TYLENOL) 0214 (Given - Provider: Mickey Means D.N.P., R.N.)1556 (Not Given - Provider: Rachel Lin R.N. - Reason: Patient/family refused) 1,000 mg, oral, Every 6 hours PRN, fever, Starting on Mon10/19/20 at 1150 D5W infusion 10-250 mL/hr, intravenous, As needed, Me dications Incompatible with 0.9% NaCL, Starting on Mon10/18/20 at 1207, Infuse at the same rate as the piggyback until tubing clears or up to a volume of 20 mL pre and post infusion for medications incom patible with 0.9% NaCL. Use 100 mL bag then discard. HYDROmorphone (PF) injection 0.2 mg (DILAUDID) 0.2 mg, intravenous, Every 1 hour PRN, s evere pain or score 7-10 of 10, for breakthrough if pain is not improved with oral dilaudid, Starting on Mon10/20/20 at 1001 HYDROmorphone tablet 2 mg (DILAUDID) (CANCELED) 1303 ( Given - Provider: Vianca Camacho R.N., O.C.N. - Comment: abdomen.) 2 mg, oral, Every 4 hours PRN, moderate pain or score 4-6 of 10, Starting on Mon10/20/20 at 1000 HYDROmorphone tablet 3 mg (DILAUDID) (CANCELED) 0339 ( Given - Provider: Shira Rodriguez, R.N.)0940 (Given - Provider: Vianca Camacho R.N., O.C.N. - Comment: across abdomen.) 3 mg, oral, Every 3 hours PRN, moderate pain or score 4-6 of 10, Starting on 10/18/20 at 1244 LORazepam injection 0.5 mg (ATIVAN) 0807 (Given - Provider: Rachel Lin R.N.)1851 (Given - Provider: Lesia Graham RRiazNRiaz) 0038 (Given - Provider: Mickey Means D.N.P., R.N.) 0.5 mg, intravenous, Every 4 hours PRN, anxiety, sleep, nausea, vomiting, Starting on Mon10/21/20 at 0758, For intravenous use, dilute with equal volume of 0.9% NS NaCl 0.9% infusion 1500 (New Bag - Prov ider: Rachel Lin RJohn.)1933 (Stopped - Provider: Elizabeth Tee R.N.) 10-250 mL/hr, intravenous, As needed, Be tween Consecutive Piggyback Medications, Starting on 10/18/20 at 1207, Infuse at the same rate as the piggyback until tubing clears or up to a volume of 20 mL. Select for IV medication administration when no maintenance IV available or when IV medications are not compatible with maintenance fluid. NaCl 0.9% infusion 1459 (Canceled Entry - Provider: Rachel Lin RJohn. - Reason: Other - Comment: changed infusion , see other continuous fluid) 10-250 mL/hr, intravenous, As needed, Po st Medications (Hazardous/Low Fluid Volume), Starting on Mon10/18/20 at 1207, Infuse at the same rate as the medication until tubing cleared of medication, then discard. naloxone injection 0.2 mg (NARCAN) 0.2 mg, intravenous, As needed, respirat ory depression, Starting Mon10/18/20 at 1225, For RASS Score -4 or less, respiratory rate of less than 8 breaths/min. Notify provider/service and rapid response team (if available at institution). ondansetron (PF) injection 8 mg (ZOFRAN) 1950 (Given - Provider: Elizabeth Tee R.N.) 8 mg, intravenous, Every 8 hours PRN, na usea, vomiting, Starting on Mon10/21/20 at 1908 oxyCODONE IR tablet 10 mg (ROXICODONE) 1810 (Given - P rovider: Lucero Jesus R.N., [facility])2146 (Given - Provider: Matthias Michael.P., R.N.) 1559 (Given - Provider: Elizabeth Tee R.N.) 0522 (Given - Provider: Sandra Michael.P., R.N.)1027 (Given - Provider: Randall Reyes.N., O.C.N.)1334 (Given - Provider: Randall Reyes.N., O.C.N.) 10 mg, oral, Every 3 hours PRN, moderate pain or score 4-6 of 10, severe pain or score 7-10 of 10, Starting on Mon10/20/20 at 1506 prochlorperazine tablet 10 mg (COMPAZINE) (CANCELED) 0444 (Given - Provider: Matthias Michael.P., R.N. - Comment: epic would not started) 10 mg, oral, Every 6 hours PRN, nausea, vomiting, Starting on Mon10/18/20 at 1221, For 29 days sodium chloride 0.9 % injection 10 mL 0038 (Given - Provider: Matthias Michael.P., R.N.) 10 mL, intravenous, As needed, line care , Starting on Mon10/18/20 at 1221, Peripheral Intravenous Catheter and Rapid Infusion Catheter, prior to blood sampling, post blood transfusion or post blood sampling sodium chloride 0.9 % injection 3 mL 195 1 (Given - Provider: Elizabeth Tee R.N.) 3 mL, intravenous, As needed, line care, Peripheral Intravenous Catheter and Rapid Infusion Catheter, Starting on Mon10/18/20 at 1207, Prior to and following infusion and between multiple consecutive infusions. sulfur hexafluoride microspheres injection (LUMASON) 1 200 (Given - Provider: Kassidy Powell R.D.CRiazSRiaz) intravenous, As needed, contrast, Starti ng on Mon10/20/20 at 1200, See protocol. Reconstitute each 25 mg vial with 5 mL NS. documented in this encounter Care Teams Nurse Charge Rn Relationship Specialty Start Date End Date Elsewhere, Pcp PCP - General Family Medicine 08/12/20 documented as of this encounter
--- OUTSIDE RECORDS SUMMARY | 2022-06-18 16:21 | XMS_ITS | Encounter Summary ---
:1965 Author Organization [facility] Address [address] [place] [id number] Care Team Providers Name Role Phone Elsewhere, Pcp Primary Care Provider Unavailable Encounter Details Date Type Department Care Team Description 10/17/2020 Clinical Communication Department of Oncology Kendall grant, in [facility] Allen Mitchell, [address] [place] [address] [facility] [place] [facility] [place], [place] [address] [place] [phone] [place], [place] [phone] [place] [address] Social History Tobacco Use Types Packs/Day Years [...] How often do you attend buddhism or episcopal services? Never 01/15/2021 Do you [...] Date Recorded Male 08/18/2021 2:55 PM RN BSN documented as of this encounter Miscellaneous Notes Telephone Encounter - Annie Eckert M.B., B.Ch. - 10/17/2020 9:28 AM RN BSN I received a phone call from Mr. Campbell this morning as I am the Aircraft Life Support Fitter welder production line arc. I note he has a history of borderline resectable pancreas uncinate cancer with a recent history of pancreatitis and peripancreatic abscess. He received the 1st dose of gemcitabine and Abraxane chemotherapy yest erday, 16 October 2020. He notes that he developed a fever late last night and went to an emergency room in [place], [place]. I do not have access to the records in Care Everywhere, but the patient recounts that he had blood work done, which apparently was unremarkable, and they sent blood cultures. He was then discharged home. Since his discharge, he notes that he has developed very severe abdominal pain, which he rates as a 12/10. He wonders as regards next steps at this point. He feels he is about to pass out from the pain. I advised him to call an ambulance, given the severity of the situation. The patient noted that he would prefer to travel to [place] via car, and I advised him thatthis would not be safe, and if a transfer to [place] was needed from a local hospital, that this could be done after he was stabilized from the pain perspective. The patient and his stated that they will plan to go to the hospital as soon as possible. I encouraged them that if the assessing providers need further information, that they can contact us the Oncology Lottery Manager Service at [facility]. Allen Wheelre, B.Ch. CT CT Job ID: [id number]/dlb BSN documented in this encounter Plan of Treatment Upcoming Encounters Date Type Specialty Care Team Description 06/22/2022 Lab Laboratory Medicine Maria Del Rosario Gomez AP RN, C.N.P., M.S. [address] [place] [phone] (Wo rk) 06/22/2022 Infusion Oncology Maria Del Rosario Gomez APRN, C.N .P., M.S. [address] [place] [phone] (Wo rk) 06/29/2022 Lab Laboratory Medicine Maria Del Rosario Gomez AP RN, C.N.P., M.S. [address] [place] [address] [phone] (Wo rk) 06/29/2022 Infusion Oncology Maria Del Rosario Gomez APRN, C.N .P., M.S. [address] [place] [address] [phone] (Wo rk) documented as of this encounter Visit Diagnoses Not on filedocumented in this encounter Additional Health Concerns Infection Onset Date Last Indicated Resolved Time COVID19 Pending 10/23/2020 10/23/2020 10/23/2020 2:59 PM RN BSN COVID19 Pending 11/05/2020 11/05/2020 11/06/2020 2:05 AM RN BSN documented as of this encounter Care Teams Computer Software Engineer Relationship Specialty Start Date End Date Elsewhere, Pcp PCP - General Family Medicine 08/12/20 documented as of this encounter
--- OUTSIDE RECORDS SUMMARY | 2022-06-18 16:21 | XMS_ITS | Encounter Summary ---
:1965 Author Organization [facility] Address [address] [place] [address] Care Team Providers Name Role Phone Elsewhere, Pcp Primary Care Provider Unavailable Encounter Details Date Type Department Care Team Description 10/18/2020 Ancillary Procedure Department of Radiology Dc Maguire, in [facility] elke JACK CRiazN.PRiaz [address] [place] [address] [place] [address] Social History Tobacco Use Types Packs/Day Years [...] How often do you attend confucianist or yarsani services? 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 [address] [place] [address] [phone] (Wo rk) 06/22/2022 Infusion Oncology [place] APRN, Remy.N .P., M.S. [address] [place] [address] [phone] (Wo rk) 06/29/2022 Lab Laboratory Medicine Maria Del Rosario Gomez AP RN, C.N.P., M.S. [address] [place] [address] [phone] (Wo rk) 06/29/2022 Infusion Oncology Maria Del Rosario Gomez APRN, Remy.N .P., M.S. [address] [place] [address] [phone] (Wo rk) documented as of this encounter Procedures Procedure Name Priority Date/Time Associated Comments Diagnosis INTERPRETATION OF RAD - Routine 10/18/2020 12:10 Resul ts for OUTSIDE CT ABDOMEN (most inpatients PM ADULT SCHOOL TEACHER this procedure AND OR PELVIS and all are in the outpatients) results section. documented in this encounter Results Interpretation of Outside CT Abdomen and or Pelvis (10/18/2020 12:10 PM ADULT SCHOOL TEACHER) Anatomical Region Laterality Modality Abdomen, Pelvis, Abdominal RST LOS, Abdominal ARZ LOS, N/A Computed Tomography Abdominal FLA LOS, Other Specimen (Source) Anatomical Collection Method Collection Time Re ceived Time Location / / Volume Laterality 10/18/2020 1:36 PM ADULT SCHOOL TEACHER Impressions 10/18/2020 1:47 PM ADULT SCHOOL TEACHER Extensive residual multiloculated fluid collections in the pancreas bed/left upper quadrant are slightly dec reased in size compared to recent prior exam. Narrative 10/18/2020 1:47 PM ADULT SCHOOL TEACHER EXAM: ??INTERPRETATION OF OUTSIDE CT ABDOMEN AND OR PELVIS with IV contrast dated 10/17/2020 COMPARISON: ??[facility] CT abdomen pel vis 10/05/2020 and outside [...] PELVIS with IV contrast dated 10/17/2020 COMPARISON: [facility] CT abdomen pelvi s 10/05/2020 and outside [...] on filedocumented in this encounter Care Teams Kelp Cutter Relationship Specialty Start Date End Date Elsewhere, Pcp PCP - General Family Medicine 08/12/20 documented as of this encounter
--- OUTSIDE RECORDS SUMMARY | 2022-06-18 16:21 | XMS_ITS | Encounter Summary ---
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 [address] [place] [phone] (Wo rk) 06/22/2022 [facility], C.N .P., M.S. [address] [place] [phone] (Wo rk) 06/29/2022 Lab [facility] RN, C.N.P., M.S. [address] [place] [address] [phone] (Mj rk) 06/29/2022 [facility], C.N .P., M.S. [address] [place] [phone] (Mj rk) documented as of this encounter Visit Diagnoses Not on filedocumented in this encounter Care Teams Boxing Inspector Relationship Specialty Start Date End Date Elsewhere, Pcp PCP - General Family Medicine 08/12/20 documented as of this encounter
--- OUTSIDE RECORDS SUMMARY | 2022-06-18 16:21 | XMS_ITS | Encounter Summary ---
:1965 Author Organization [facility] Address [address] [place] [address] Care Team Providers Name Role Phone Elsewhere, Pcp Primary Care Provider Unavailable Encounter Details Date Type Department Care Team Description 10/10/2020 Clinical Communication Division of Ernesto Curiel Gastroenterology ej Sifuentes M.D. 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 - 10/10/2020 4:00 PM CST Spoke to Mr campbell to go over his imaging. His fluid collections have slightly decreased in size and are slightly more mature. Mr campbell currently is doing well after his hospitalization last week for abdominal pain. At that time he underwent ercp due to elevated liver enzymes which resolved these abnormalities. He reports currently he has no abdominal pain and he has gained some weight since his hospitalization. Spoke with Dr Cassidy to go over imaging, at this time given that patient is doing ok from an abdominal pain standpoint and since the size of these collections are starting to slowly decrease in size, would like to defer placing new drains. This would also decrease the infectious risk at this time. Furthermore he may require more than one drain given that he has multifocal pancreatic collections. He isto have staging scans again after his chemo regimen, we will re-assess these fluid at that time. In the interim if he develops any subsequent abdominal pain or concern for infection of these collections we can consider drain placement at that time. Mr Campbell is in agreement with plan. Ernesto Curiel MD Pager: [phone] [facility] [place] MEDIA CAMPAIGN MANAGER documented in this encounter Plan of Treatment Upcoming Encounters Date Type Specialty Care Team Description 06/22/2022 Lab Laboratory Medicine Maria Del Rosario Gomez AP RN, C.N.P., M.S. [address] [place] [phone] (Mj godoy) 06/22/2022 Infusion Oncology Maria Del Rosario Gomez APRN, C.N .P., M.S. [address] [place] [address] [phone] (Mj godoy) 06/29/2022 Lab Laboratory Medicine Maria Del Rosario Gomez AP RN, C.N.P., M.S. [address] [place] [address] [phone] (Mj godoy) 06/29/2022 Infusion Oncology Maria Del Rosario Gomez APRN, C.N .P., M.S. [address] [place], [place] [phone] (Wo rk) documented as of this encounter Visit Diagnoses Not on filedocumented in this encounter Care Teams Client Representative Relationship Specialty Start Date End Date Elsewhere, Pcp PCP - General Family Medicine 08/12/20 documented as of this encounter
--- OUTSIDE RECORDS SUMMARY | 2022-06-18 16:21 | XMS_ITS | Encounter Summary ---
:1965 Author Organization [facility] Address [address] [place] [id number] Care Team Providers Name Role Phone Elsewhere, Pcp Primary Care Provider Unavailable Reason for Referral MRI/CAT/PET Scan (Routine) - Closed Specialty Diagnoses / Procedures Referred By Contact Refer red To Contact Radiology Diagnoses Pancreatitis Acute (HCC) Ernesto Curiel M.D. [facility] Procedures CT Abdomen Pelvis with IV Contrast [address] [place] [address] [phone] Referral ID Status Reason Start Date Expiration Date Visits Requ ested Visits Authorized [id number] Closed 09/23/2020 09/23/2021 1 1 ALDEHYDE CONVERTER OPERATOR Reason for Visit MRI/CAT/PET Scan (Routine) - Closed Specialty Diagnoses / Procedures Referred By Contact Refer red To Contact Radiology Diagnoses Pancreatitis Acute (HCC) Ernesto Curiel M.D. [facility] Procedures CT Abdomen Pelvis with IV Contrast [address] [place] [address] [phone] Referral ID Status Reason Start Date Expiration Date Visits Requ ested Visits Authorized [id number] Closed 09/23/2020 09/23/2021 1 1 Encounter Details Date Type Department Care Team Description 10/05/2020 Hospital Encounter Department of Ernesto Curiel Pancr eatitis Acute Radiology, Bradley Sifuentes M.D. ([facility]) [facility], in [address] [place] [phone] [phone] [place], [place] (Work) [phone] Social History Tobacco Use Types Packs/Day Years [...] How often do you attend taoist or catholic services? 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 acetaminophen (TYLENOL) Take 1 tablet (500 0 01/202001/01/2021 500 mg tablet mg total) by mouth every 6 (six) hours. enoxaparin (LOVENOX) 80 Inject 0.8 mL (80 120 Syringe 0 /01/202010/30/2020 mg/0.8 mL injection mg total) under the skin 2 (two) times a day. oxyCODONE (ROXICODONE) 5 Take 1 tablet (5 30 tablet 0 10/0210/22/2020 mg immediate release mg total) by mouth tabletIndications: every 6 (six) Chronic Pain/Nonacute hours as needed Pain for pain Indication: Chronic Pain/Nonacute Pain. sennosides (SENOKOT) 8.6 Take 8.6 mg by 0 10/22/2020 mg tablet mouth daily. documented as of this encounter Plan of Treatment Upcoming Encounters Date Type Specialty Care Team Description 06/22/2022 Lab Laboratory Medicine Maria Del Rosario Gmoez AP RN, C.N.P., M.S. [address] [place] [address] [phone] (Mj rk) 06/22/2022 Infusion Oncology Maria Del Rosario Gomez APRN, C.N .P., M.S. [address] [place] [address] [phone] (Mj rk) 06/29/2022 Lab Laboratory Medicine Maria Del Rosario Gomez AP RN, C.N.P., M.S. [address] [place] [address] [phone] (Mj rk) 06/29/2022 Infusion Oncology Maria Del Rosario Gomez APRN, C.N .P., M.S. [address] [place] [address] [phone] (Mj rk) documented as of this encounter Procedures Procedure Name Priority Date/Time Associated Comments Diagnosis CT ABDOMEN PELVIS RAD - Routine 10/05/2020 2:10 Pancreatitis Acute Results for this WITH IV CONTRAST (most inpatients PM ACETALDEHYDE CONVERTER OPERATOR (HCC) procedu re are in and all the results outpatients) section. documented in this encounter Results CT Abdomen Pelvis with IV Contrast (10/05/2020 2:10 PM ACETALDEHYDE CONVERTER OPERATOR) Anatomical Region Laterality Modality Abdomen, Pelvis, Abdominal RST LOS, N/A Comp uted Tomography, Computed Abdominal ARZ LOS, Abdominal FLA LOS Dileep ography Specimen (Source) Anatomical Collection Method Collection Time Re ceived Time Location / / Volume Laterality 10/05/2020 5:12 PM ACETALDEHYDE CONVERTER OPERATOR Impressions 10/05/2020 5:23 PM ACETALDEHYDE CONVERTER OPERATOR Mild interval maturation of multifocal peripancreatic fluid collections, slightly decreased in volume. Otherwise no significant change. Narrative 10/05/2020 5:23 PM ACETALDEHYDE CONVERTER OPERATOR EXAM: ??CT ABDOMEN PELVIS WITH IV CONTRAST COMPARISON: ??09/30/2020. 09/22/2020. FINDINGS: ?? Small left pleural effusion redemonstrat ed, with adjacent passive atelectasis. No aggressive osseous lesions. Unobstruc sally bowel. No free fluid in the pelvis. Normal kidneys, adrenal glands, spleen. Redemonstrated pneumobilia with common bile duct stent in place. Multifocal upper abdominal fluid collect ion with small foci of gas redemonstrated arising from the pancreas . There is no abnormal enhancement of the pancreatic body and tail. There is n o pancreatic ductal dilatation. There is slight maturation of an irregular enhanc ing wall surrounding multiple chambers of the collection, occlusion of the sple milagros vein and narrowing of the proximal SMV redemonstrated. No new uncinate proc ess mass measures approximately 2.2 x 1.9 cm, not significantly changed. The multiloculated fluid collection medi al to the spleen extending anteriorly measures approximately 3.3 x 10 cm, prev iously 3.8 x 11 cm in axial plane. A large collection inferior and anterior t o the spleen measures 8 x 5.6, previously 8.3 x 6.4 cm in coronal plane . The collection along the pancreatic body and tail measures approximately 6.5 x 2.6, previously 7.6 x 2.2 cm in axial plane. Embolization coils along the left retroperitoneum, with resulting streak artifact partially limiting regional aman luation. Procedure Note Efren Braden M.D. - 10/05/2020Form atting of this note might be different from the original. EXAM: CT ABDOMEN PELVIS WITH IV CONTRAST COMPARISON: 09/30/2020. 09/22/2020. FINDINGS: Small left pleural effusion redemonstrat ed, with adjacent passive atelectasis. No aggressive osseous lesions. Unobstruc sally bowel. No free fluid in the pelvis. Normal kidneys, adrenal glands, spleen. Redemonstrated pneumobilia with common bile duct stent in place. Multifocal upper abdominal fluid collect ion with small foci of gas redemonstrated arising from the pancreas . There is no abnormal enhancement of the pancreatic body and tail. There is n o pancreatic ductal dilatation. There is slight maturation of an irregular enhanc ing wall surrounding multiple chambers of the collection, occlusion of the sple milagros vein and narrowing of the proximal SMV redemonstrated. No new uncinate proc ess mass measures approximately 2.2 x 1.9 cm, not significantly changed. The multiloculated fluid collection medi al to the spleen extending anteriorly measures approximately 3.3 x 10 cm, prev iously 3.8 x 11 cm in axial plane. A large collection inferior and anterior t o the spleen measures 8 x 5.6, previously 8.3 x 6.4 cm in coronal plane . The collection along the pancreatic body and tail measures approximately 6.5 x 2.6, previously 7.6 x 2.2 cm in axial plane. Embolization coils along the left retroperitoneum, with resulting streak artifact partially limiting regional aman luation. IMPRESSION: Mild interval maturation of multifocal p eripancreatic fluid collections, slightly decreased in volume. Otherwise no significant change. Ernesto Curiel M.D. IMTeresa CT PROCEDURES documented in this encounter Visit Diagnoses Diagnosis Pancreatitis Acute (HCC) documented in this encounter Administered Medications Inactive Administered Medications - up to 3 most recent administrations Medication Order MAR Action Action Date Dose Rate Site iohexoL 300 mg iodine/mL solution Given 10/05/2020 2:01 PM ACETALDEHYDE CONVERTER OPERATOR 1 40 mL 1-200 mL (OMNIPAQUE) 1-200 mL, intravenous, Once in imaging, contrast, Starting on Mon10/05/20 at 1302, For 1 dose, Imaging Protocol Orders, Dose per Radiant Medication Guidelines sodium chloride (PF) 0.9 % injection 1-1 00 mL Given 10/05/2020 2:00 PM ACETALDEHYDE CONVERTER OPERATOR 50 mL 1-100 mL, intravenous, Once, On Mon10/05/20 at 1315, For 1 dose, Imaging Protocol Orders documented in this encounter Care Teams Laundry Press Operator Relationship Specialty Start Date End Date Elsewhere, Pcp PCP - General Family Medicine 08/12/20 documented as of this encounter
--- OUTSIDE RECORDS SUMMARY | 2022-06-18 16:21 | XMS_ITS | Encounter Summary ---
:1965 Author Organization [facility] Address [address] [place] [address] Care Team Providers Name Role Phone Elsewhere, Pcp Primary Care Provider Unavailable Reason for Visit Outpatient (Routine) - Closed Specialty Diagnoses / Procedures Referred By Contact Refer red To Contact Infectious Diseases Ankur Card M.D. [facility] [address] [place] [phone] Referral ID Status Reason Start Date Expiration Date Visits Requ ested Visits Authorized [id number] Closed 09/23/2020 09/23/2021 1 1 Encounter Details Date Type Department Care Team Description 10/14/2020 Telemedicine Section of Infectious Ankur Card M.D. [address] [place] [phone] Malignant Neoplasm Of Pancreas (HCC) (Pr imary Dx); Diseases in [facility] Marion Rodriguez M.D. 200 [place] [phone] Acute Pancreatitis With Infected Necrosi s Unspecified (HCC) [address] [phone] Social History Tobacco Use Types Packs/Day Years [...] often do you attend roman catholic or roman catholic services? 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 - 10/14/2020 9:30 AM CST Infectious Diseases Outpatient Consultation Service-Progress Note - VIDEO VISIT SUBJECTIVE REASON FOR CONSULT We are asked by Ankur Card M.D., M.B.A. to see Mr. Campbell to give further recommendations for evaluation and management of this is a 55-year-old male gentleman. HISTORY OF PRESENT ILLNESS This is a 55-year-old male gentleman with a history of pancreatic adenocarcinoma status post common bile duct stenting on 2019 with recent doing on 08/04/2020 status post ERCP pancreatitis admitted in August 2020 with strep anginosus bacteremia and new nonocclusive left main portal vein thrombosis. He was treated with ceftriaxone for planned 6 week duration and seen by infectious diseases.This was scheduled to be completed on September 24 to 2020. However, on 09/09/2020, he underwent an MRCP that showed decrease in the size of the peripancreatic fluid collections, stable thrombus of the left portal vein, no significant intrahepatic biliary ductal dilatation, but his LFTs were increasing.There is a concern that this was from ceftriaxone, so there is a switched to ertapenem. He presented to the hospital on 09/12/2020 and found to have extensive necrotizing peripancreatic fluid collections with foci of gas. He was switch for a short period of time to Zosyn, then switched back to ertapenem and discharged. Seen as an outpatient in ID clinic and CT scan showed resolution of gas within the peripancreatic fluid collection. Antibiotics were discontinued and PICC line was pulled. Patient presented again with postprandial severe abdominal pain and presented to local emergency department where CT scan showed extensive fluid collections, worsening leukocytosis, and transaminitis. He was transferred to [facility] and seen by ID on 10/01/2020. At that time, it was not clear whether he was having an infection of the fluid collections, as he had already undergone a prolonged course of antibiotic therapy. Blood cultures were drawn and were negative and therefore antibiotics were discontinued. Last touch base with gastroenterology was 10/10/2020 at which time fluid collections were seen to bedecreasing in size and was having resolution of abdominal pain and weight gain. Further drain placement was deferred because of this improvement. Aiden horse in legs, feet, stomach at end of rib cage, occurred many times. Gaining back weight and getting back to eating what he used to eat, eating more at each meal. No abdominal pain except when he takes in too much sugar. REVIEW OF SYSTEMS Constitutional: Positive for fatigue, night sweats and weight loss of more than 10 pounds. Gastrointestinal: Positive for abdominal (belly) pain or cramping, constipation, heartburn and nausea. Genitourinary: Positive for decreased libido, urgency and frequent urination. Musculoskeletal: Positive for back pain. Neurological: Positive for excessive daytime sleepiness and headaches. Psychiatric/Behavioral: Positive for decreased libido, excessive daytime sleepiness/tiredness, little interest or pleasure in doing things over past two weeks, feeling down, depressed, or hopeless overpast two weeks, not being able to stop or control worrying over past two weeks and feeling nervous, anxious, or on edge in past two weeks. The following systems were negative: Skin, Eyes, ENT, CV, Respiratory, Hematologic REVIEW OF HISTORY The following portions of the patient's history were reviewed and updated as appropriate: allergies,surgical history, current medications, problem list, family history, medical history and social history OBJECTIVE PHYSICAL EXAM Vital Signs: I have reviewed the current vital sign data as applicable. Physical Exam - Video visit - not performed DIAGNOSTICS I have reviewed diagnostics as above ASSESSMENT / PLAN 1. Necrotizing pancreatitis with fluid collections - improved and s/p 6 weeks IV antibiotic therapy 2. Pancreatic adenocardinoma 3. Strep anginosus bloodstream infection - resolved Reassuringly, the patient has been stable if not improved, now off antibiotics since 09/23/2020 withincreased appetite, weight gain, and CT imaging showing improvement of the size of the fluid collections. Evaluated by GI and additional drains be placed given. Seems to be stable from our standpoint at this time. There is no indication for further antibiotics at this time. Will defer management of the fluid collections, which appear to be no longer fact it, to our colleagues in Oncology and GI. Please do not hesitate to reach out with any changes in clinical status. RECOMMENDATIONS 1. Follow off of antibiotics. 2. Follow-up on as-needed basis. Treatment plan reviewed with Mr. Campbell, who expressed understanding. All questions answered to patient's satisfaction. Thank you for the consult. Marion Rodriguez M.D. Consult conducted via real-time audio/video technology by Marion Rodriguez M.D. in [facility] patient in patient home. Y CUTTER MACHINE documented in this encounter Plan of Treatment Upcoming Encounters Date Type Specialty Care Team Description 06/22/2022 Lab Laboratory Medicine Maria Del Rosario Gomez AP RN, C.N.P., M.S. [address] [place] [address] [phone] (Mj godoy) 06/22/2022 Infusion Oncology Maria Del Rosario Gomez APRN, C.N .P., M.S. [address] [place] [address] [phone] (Mj godoy) 06/29/2022 Lab Laboratory Medicine Maria Del Rosario Gomez AP RN, C.N.P., M.S. [address] [place] [address] [phone] (Mj godoy) 06/29/2022 Infusion Oncology Maria Del Rosario Gomez APRN, C.N .P., M.S. [address] [place] [address] [phone] (Mj godoy) documented as of this encounter Visit Diagnoses Diagnosis Malignant Neoplasm Of Pancreas (HCC) - P rimary Acute Pancreatitis With Infected Necrosi s Unspecified (HCC) documented in this encounter Care Teams Storage Battery Charger Relationship Specialty Start Date End Date Elsewhere, Pcp PCP - General Family Medicine 08/12/20 documented as of this encounter
--- OUTSIDE RECORDS SUMMARY | 2022-06-18 16:21 | XMS_ITS | Encounter Summary ---
:1965 Author Organization [facility] Address [address] [place] [address] Care Team Providers Name Role Phone Elsewhere, Pcp Primary Care Provider Unavailable Reason for Visit Outpatient (Routine) - Closed Specialty Diagnoses / Procedures Referred By Contact Refer red To Contact Nutrition Diagnoses Malignant Neoplasm Of Pancreas (HCC) Pancreatitis Post Endoscopic Retrograde Cholangiopancreatography (HCC) Abscess Intra Abdominal (HCC) [facility] [address] [place] [phone] Referral ID Status Reason Start Date Expiration Date Visits Requ ested Visits Authorized [id number] Closed 09/23/2020 09/23/2021 1 1 Encounter Details Date Type Department Care Team Description 10/05/2020 Clinical Department of Strong, Malignant Neop lasm Of Pancreas (HCC); Support Nutrition in [place], Pancreatitis Po st Endoscopic Retrograde Cholangiopancreatography (HCC); [facility], LD Abscess Intra Abdominal (HCC) [place] [address] [address] [facility] [address] [place] [phone] Social History Tobacco Use Types Packs/Day Years [...] How often do you attend scientology or sikh services? 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 Adam Campbell was referred for nutrition education in the setting of pancreatic cancer. Met with patient and spouse. ASSESSMENT Nutrition Focused Physical Findings Gas pain with eating constipation - taking Senna Good appetite Food/Nutrition Related History Diet Experience: He has been following a low fat and avoiding greasy foods. He has been using Fairlife milk, rather than regular milk, with cereal. He has been doing lots of soups and sandwiches. He tolerated a thin crust pizza from [employer] last night. He doesn't tolerate Ensure or Boost. He dislikes Boost Breeze. Current intake: Breakfast: Half cup of milk and 1 cup of life cereal Morning Snack: na Noon Meal: sandwich and soup Afternoon Snack: cheese and crackers Evening meal: pizza ?? Evening Snack: pop tart Beverage/fluid intake: water, flavored water. Weight History Patient Weight: 10/01/20 : 71.2 kg 09/23/20 : 74.1 kg 09/12/20 : 76.2 kg 08/14/20 : 81.4 kg BMI Readings from Last 1 Encounters: 10/01/20 23.17 kg/m?? Weight history: He has unintentionally lost about 50 lbs in the last two months. Estimation of Nutritional Needs Protein: 85-90 grams NUTRITION DIAGNOSIS Food and nutrition-related knowledge deficit (NB-1.1) related to oncology nutrition as evidenced by no prior medical nutrition therapy on this topic. Nutrition Prescription/Recommendation Regular meals and snacks with adequate calories and protein. INTERVENTION Counseling: We discussed the importance of adequate calories, protein and fluid intake. I encouragedsmall, frequent meals. We reviewed protein containing foods. We discussed other protein containing liquids, such as Rikohgo3L and Premier Protein clear. MONITORING AND EVALUATION: Nutrition parameter to monitor: Nutritional status Desired Outcome: Improve Patient Goal(s): 1. Eat small, frequent meals and snacks throughout the day to ensure adequate calorie and protein intake. Time spent with patient (minutes): 45 TY ASSISTANT documented in this encounter Plan of Treatment Upcoming Encounters Date Type Specialty Care Team Description 06/22/2022 Lab Laboratory Medicine Maria Del Rosario Gomez AP RN, C.N.P., M.S. [address] [place] [address] [phone] (Mj godoy) 06/22/2022 Infusion Oncology Maria Del Rosario Gomez APRN, C.N .P., M.S. [address] [place] [address] [phone] (Mj godoy) 06/29/2022 Lab Laboratory Medicine Maria Del Rosario Gomez AP RN, C.N.P., M.S. [address] [place] [address] [phone] (Mj godoy) 06/29/2022 Infusion Oncology Maria Del Rosario Gomez APRN, C.N .P., M.S. [address] [place] [address] [phone] (Mj godoy) documented as of this encounter Visit Diagnoses Diagnosis Malignant Neoplasm Of Pancreas (HCC) Pancreatitis Post Endoscopic Retrograde Cholangiopancreatography (HCC) Abscess Intra Abdominal (HCC) documented in this encounter Care Teams Community Health Promoter Relationship Specialty Start Date End Date Elsewhere, Pcp PCP - General Family Medicine 08/12/20 documented as of this encounter
--- OUTSIDE RECORDS SUMMARY | 2022-06-18 16:21 | XMS_ITS | Encounter Summary ---
:1965 Author Organization [facility] Address [address] [place] [address] Care Team Providers Name Role Phone Elsewhere, Pcp Primary Care Provider Unavailable Encounter Details Date Type Department Care Team Description 10/02/2020 Orders Only Division of [facility] Cu[place]htemocAramis galvan , Internal Medicine, Tristan Roca, Ph.D. [facility], in [address] [place] [phone] [place] [phone] Social History Tobacco Use Types Packs/Day Years [...] How often do you attend baptist or latter-day services? 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 [address] [place] [address] [phone] (Wo rk) 06/22/2022 Infusion Oncology Maria Del Rosario Gomez APRN, C.N .P., M.S. [address] [place] [address] [phone] (Wo rk) 06/29/2022 Lab Laboratory Medicine Maria Del Rosario Gomez AP RN, C.N.P., M.S. [address] [place] [address] [phone] (Wo rk) 06/29/2022 Infusion Oncology Maria Del Rosario Gomez APRN, C.N .P., M.S. [address] [place] [address] [phone] (Wo rk) documented as of this encounter Visit Diagnoses Not on filedocumented in this encounter Care Teams Integrated Circuit Design Engineer Relationship Specialty Start Date End Date Elsewhere, Pcp PCP - General Family Medicine 08/12/20 documented as of this encounter
--- OUTSIDE RECORDS SUMMARY | 2022-06-18 16:21 | XMS_ITS | Encounter Summary ---
:1965 Author Organization [facility] Address [address] [place] [address] Care Team Providers Name Role Phone Elsewhere, Pcp Primary Care Provider Unavailable Reason for Referral Outpatient (Routine) - Closed Specialty Diagnoses / Procedures Referred By Contact Refer red To Contact Radiology Diagnoses Malignant Neoplasm Of Pancreas (HCC) Deborah Zurita M.B.B.S. [facility] Procedures IR Implanted Vascular Access Device Placement [address] [place] [phone] Referral ID Status Reason Start Date Expiration Date Visits Requ ested Visits Authorized [id number] Closed 10/16/2020 10/16/2021 1 1 LE APPLICATION DEVELOPER Reason for Visit Episode Based Medications (Routine) - Closed Specialty Diagnoses / Procedures Referred By Contact Refer red To Contact Diagnoses Malignant Neoplasm Of Pancreas (HCC) Deborah Zurita M.B.B.S. 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 Never 01/15/2021 Do you [...] at Date Recorded Male 08/18/2021 2:55 PM MOBILE APPLICATION DEVELOPER documented as of this encounter Last Filed Vital Signs Vital Sign Reading Time Taken Comments Blood Pressure 99/66 10/16/2020 10:07 AM MOBILE APPLICATION DEVELOPER Pulse 101 10/16/2020 10:07 AM MOBILE APPLICATION DEVELOPER Temperature 36.6 ??C (97.9 ??F) 10/16/2020 10:07 AM MOBILE APPLICATION DEVELOPER Respiratory Rate 16 10/16/2020 10:07 AM MOBILE APPLICATION DEVELOPER Oxygen Saturation 98% 10/16/2020 10:07 AM MOBILE APPLICATION DEVELOPER Inhaled Oxygen Concentration - - Weight 71.2 kg (156 lb 15.5 oz) 10/16/2020 10:07 AM MOBILE APPLICATION DEVELOPER Height 176.5 cm (5' 9.49) 10/16/2020 10:07 AM MOBILE APPLICATION DEVELOPER Body Mass Index 22.86 10/16/2020 10:07 AM MOBILE APPLICATION DEVELOPER documented in this encounter Progress Notes Deborah Zurita M.B.B.S. 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 CURRENT TREATMENT/MANAGEMENT PLAN Planning to start gemcitabine plus Abraxane. PRIMARY CARE PHYSICIAN ELSEWHERE, PCP REQUESTING PROVIDER Deborah Zurita M.B.B.S. [address] [place] [address] LOCAL ONCOLOGIST No care cylinder steamer to display PRIMARY JEFFERSON ONCOLOGIST Deborah Zurita M.B.B.S. HISTORY OF PRESENT ILLNESS: Mr. Campbell [...] PACLitaxel Protein - Bound Start Date: 10/16/2020 (Planned) INTERVAL HISTORY: Mr. Campbell returns today for follow-up. Since last visit, patient denies any fever, chills and rigor all of antibiotic. His appetite is gradually improving as well his energy level. His ECOG performancestatus is 1. ROS: Pertinent items are noted in HPI; all other review of systems were negative. Rate your distress: 7 VITAL SIGNS: Vitals: 10/16/20 1007 BP: 99/66 BP Location: Right arm Patient Position: Sitting Cuff Size: Regular Pulse: 101 Resp: 16 Temp: 36.6 ??C TempSrc: Tympanic SpO2: 98% Weight: 71.2 kg Height: 176.5 cm PHYSICAL EXAM Vitals signs reviewed. Constitutional General: [...] 55 y.o. male with borderline resectable pancreas uncinate cancer who had been recovering from pancreatitis and peripancreatic abscess. His appetite and energy level had improved since last visit. A review of his blood test results did not show any indication of sepsis and no other significant abnormality. I reviewed with him and his for potential side effects with gemcitabine plusAbraxane including nausea, vomiting and bone marrow suppression with increased risk of infection, anemia and thrombocytopenia. He will be meeting with our clinic nurse for chemo teaching. I have also sent a prescription for Compazine and Zofran to [facility] and educate him on the use of theantiemetics. We will plan for treatment for 2 cycles followed by restaging scan and to see the surgical team. Patient expressed understanding of the plan outlined above. PATIENT EDUCATION Ready to learn, no apparent learning barriers were identified; learning preferences include listening. Explained diagnosis and treatment plan; patient expressed understanding of the content. ADMINISTRATIVE BILLING I personally spent a total 25 minutes on the evaluation, development of the management plan, reviewing and setting of the chemotherapy plan, discussion/education and coordination of care as described above. This include [id number] and non tlxc-[id number] time. LE APPLICATION DEVELOPER documented in this encounter Miscellaneous Notes Addendum Note - Deborah Zurita M.B.B.S. - 10/16/2020 10:20 AM MOBILE APPLICATION DEVELOPER Addended by: DEBORAH ZURITA on: 10/16/2020 04:15 PM Modules accepted: Orders LE APPLICATION DEVELOPER documented in this encounter Plan of Treatment Upcoming Encounters Date Type Specialty Care Team Description 06/22[facility]2022 [facility] C.N[facility]S. [address] [place] [phone] (Wo rk) 06/22/2022 [facility], Remy.N .Pamela., M.S. [address] [place] [phone] (Wo rk) 06/29/2022 [facility], C.N.P., M.S. [address] [place] [phone] (Wo rk) 06/29/2022 [facility], C.N .Pamela., M.S. [address] [place] [phone] (Wo rk) documented as of this encounter Results IR Implanted Vascular Access Device Placement (11/05/2020 12:54 PM MOBILE APPLICATION DEVELOPER) Anatomical Region Laterality Modality Chest, Pelvis, Abdomen, Vascular Interventional RST LOS, N/A X-Ray Angiography Vascular Interventional ARZ LOS, Vascular Interventional FLA LOS Specimen (Source) Anatomical Collection Method Collection Time Re ceived Time Location / / Volume Laterality 11/05/2020 1:26 PM MOBILE APPLICATION DEVELOPER Impressions 11/05/2020 2:49 PM MOBILE APPLICATION DEVELOPER Placement of a right internal jugular 8 Korean single-lumen power port. Ready for use. EP Narrative 11/05/2020 2:49 PM MOBILE APPLICATION DEVELOPER EXAM: IR IMPLANTED VASCULAR ACCESS DEVICE PLACEMENT [...] Placement of a right internal jugular 8 [place] single-lumen power port. Ready for use. EP Deborah RussoSRiaz IMG IR PROCEDURES documented in this encounter Visit Diagnoses Diagnosis Malignant Neoplasm Of Pancreas (HCC) - P rimary Malignant Neoplasm Of Pancreas (HCC) documented in this encounter Care Teams Assembler Metal Building Relationship Specialty Start Date End Date Elsewhere, Pcp PCP - General Family Medicine 08/12/20 documented as of this encounter
--- OUTSIDE RECORDS SUMMARY | 2022-06-18 16:21 | XMS_ITS | Encounter Summary ---
:1965 Author Organization [facility] Address [address] [place] [address] Care Team Providers Name Role Phone Elsewhere, Pcp Primary Care Provider Unavailable Encounter Details Date Type Department Care Team Description 10/18/2020 Ancillary Procedure Department of Radiology Dc Maguire, in [facility] elke JACK CRiazN.PRiaz [address] [facility] [address] [place] [address] [place] [address] Social History Tobacco Use Types Packs/Day Years [...] How often do you attend restorationist or pentecostalism services? 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 [address] [place] [phone] (Wo rk) 06/22/2022 Infusion Oncology Maria Del Rosario Gomez APRN, C.N .P., M.S. [address] [place] [phone] (Wo rk) 06/29/2022 Lab Laboratory Medicine Maria Del Rosario Gomez AP RN, C.N.P., M.S. [address] [place] [phone] (Wo rk) 06/29/2022 Infusion Oncology Maria Del Rosario Gomez APRN, C.N .P., M.S. [address] [place] [phone] (Wo rk) documented as of this encounter Visit Diagnoses Not on filedocumented in this encounter Care Teams Timber Faller Relationship Specialty Start Date End Date Elsewhere, Pcp PCP - General Family Medicine 08/12/20 documented as of this encounter
--- OUTSIDE RECORDS SUMMARY | 2022-06-18 16:21 | XMS_ITS | Encounter Summary ---
:1965 Author Organization [facility] Address [address] [place] [address] Care Team Providers Name Role Phone Elsewhere, Pcp Primary Care Provider Unavailable Reason for Referral Outpatient (Routine) Specialty Diagnoses / Procedures Referred By Contact Refer rossi To Contact Oncology Deborah Murray M.B.B.S . [address] [phone] Referral ID Status Reason Start Date Expiration Date Visits Requ ested Visits Authorized Scheduling Instructions Dr. Murray or Maria Del Rosario ET OPERATOR Specialty Diagnoses / Procedures Referred By Contact Refer rossi To Contact Deborah Murray M.B.B.S . [address] [phone] Referral ID Status Reason Start Date Expiration Date Visits Requ ested Visits Authorized ET OPERATOR Reason for Visit Outpatient (Routine) - Closed Specialty Diagnoses / Procedures Referred By Contact Radha richey To Contact Oncology Deborah Murray M.B.B.S . [address] [phone] Referral ID Status Reason Start Date Expiration Date Visits Requ ested Visits Authorized [id number] Closed 09/23/2020 09/23/2021 1 1 Encounter Details Date Type Department Care Team Description 10/05/2020 Office Visit Department of Oncology Deborah [facility] Pan[facility] ([facility] (Primary [place] [address] [facility] Dx) [address] [place] [phone] Social History Tobacco Use Types Packs/Day Years [...] How often do you attend caodaism or anabaptism services? 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 - 10/05/2020 11:00 AM CST #1 Malignant Neoplasm Of Pancreas (HCC) This is a supervisory note for a follow-up visit. Adam Campbell was seen and evaluated with Dr. Mercado. I concur with the assessment, evaluation, and recommendations of the care team provider stated in this note. The oncologic history is as below: [...] had been hospitalized and on iv antibiotics. 10/16/2020 - Chemotherapy Gemcitabine / PACLitaxel Protein - Bound Start Date: 10/16/2020 (Planned) To summarize, Adma Campbell is a 55 y.o. male borderline resectable pancreas uncinate cancer with pancreatitis and peripancreatic abscess. Since last visit, patient was hospitalized for abdominalpain attributed to common bile duct obstruction. His symptoms improved with ERCP with stent placement. He had been off antibiotic treatment since last visit with no objective fever, chills or rigor. Hewas briefly on Zosyn when he was hospitalized though discontinued after negative blood culture. Since discharge, patient denies any objective fever, chills and rigor. Patient's energy level and appetite the seem to improved slightly since last visit. It does appear that he is normal active with ECOG performance status of 1. He has a follow-up CT scan today to evaluate the pancreas abscess and will beseeing Infectious Disease next Monday on October 14. I think he is recovering well and he may actually be in a candidate for doublet therapy with gemcitabine plus Abraxane. We will plan to see himon October 16 with a plan for chemo thereafter. We will recheck his labs and monitor for any infection and would do a blood culture if he does spike a fever. I did discuss about the potential side effects of the treatment including alopecia, numbness/paresthesia in fingers and toes, increased risk of infection, neutropenia, anemia and thrombocytopenia. The alternate option would be proceed with gemcitabine monotherapy and intensifying to gemcitabine plus Abraxane. The regimen is given IV once a week for 3 weeks followed by a week off, and will plan for restaging scan after 2 cycles of treatment and to see Dr. Travis. Patient and expressed understanding of the plan outlined above. I also set the chemo orders for gemcitabine/Abraxane in the [place] today. Georgina Ruiz M.D., Ph.D. - 10/05/2020 11:00 AM CST CHIEF COMPLAINT/PURPOSE OF VISIT: Primary Oncologist: Dr. Murray Supervised by: Dr. Murray HISTORY OF PRESENT ILLNESS: Mr. Campbell is [...] Date: 10/16/2020 (Planned) INTERVAL HISTORY: Mr. Campbell presents for follow-up of borderline resectable pancreatic adenocarcinoma. His diagnosis was complicated by post-ERCP pancreatitis, peripancreatic abscess, strep anginosis blood stream infection, and portal vein thrombosis. He completed antibiotics around 09/23/20. Subsequently he developed worse abdominal pain and was rehospitalized with concern for cholangitis. He underwent repeat ERCP which found that his prior stent was patent, but a CBD stricture was obstructing. Another stent was placed and his pain and hyperbilirubinemia improved. Empiric antibiotics were discontinued prior to discharge with low suspicion for infection. He now returns to oncology clinic for consideration of starting chemotherapy. His epigastric abdominal pain has improved since the last stent was placed. He still has cramping lower abdominal pain and gas that improve with bowel movements. He is on a stool softener for some constipation and having 1 BM per day. His appetite is improving and he denies nausea or vomiting. He denies any fever since being off antibiotics. His energy is still low, but he walks about 10 minutes every day and tries to go up and down the stairs 3 times for exercise. Otherwise he's fairly sedentary and does nap on the couchwhile watching TV. ROS: Pertinent items are noted in HPI; all other review of systems were negative. I have reviewed and updated the following: Past Medical History, Family History, Social History, andAllergies. VITAL SIGNS: There were no vitals filed for this visit. No data recorded PHYSICAL EXAM: General: Alert and oriented in no acute distress. Ambulates on and off the exam table without difficulty. Eyes: Sclera anicteric, conjunctiva clear. HENT: Moist mucous membranes without oral lesions. Lymph: No cervical, supraclavicular or infraclavicular lymphadenopathy was palpated. Cardiac: Normal rate, regular rhythm. No murmurs, rubs, or gallops. No lower extremity edema. Lungs: Breathing comfortably on room air. Lungs clear to auscultation bilaterally. Abdomen: Soft, nontender, nondistended. No hepatosplenomegaly noted. ECOG score 2. DIAGNOSTICS: I reviewed the relevant labs. ASSESSMENT/PLAN: #1 Malignant Neoplasm Of Pancreas (HCC) Mr. Campbell is a 55 yo man with borderline resectable pancreatic adenocarcinoma, with recent post-ERCPpancreatitis, peripancreatic abscess, strep anginosis blood stream infection, and portal vein thrombosis. Following repeat ERCP and stenting on 10/01 he is currently doing well off antibiotics with no fever or abdominal pain suggestive of ongoing infection. He does have a WBC count elevated to 13.1 with elevated neutrophils and monocytes, but this is within his recent range. Bilirubin remains normal and his other liver chemistries are normalizing. Plan: - CT scan today to reassess his peripancreatic fluid collections; follow-up with ID next week - If he remains stable, plan to proceed with initiating chemotherapy next Monday with gemcitabine monotherapy and then add Abraxane in subsequent cycles if he is tolerating therapy. Alternatively if he is continuing to improve functionally it would be an option to start both agents next week. - Plan for restaging scans after 2 months of treatment and follow-up with Dr. Travis at that time. The patient was seen with Dr. Murray. PATIENT EDUCATION Ready to learn, no apparent learning barriers were identified; learning preferences include listening. Explained diagnosis and treatment plan; patient expressed understanding of the content. ADMINISTRATIVE BILLING I personally spent over half of a total 25 minutes face to face with the patient in counseling and discussion and/or coordination of care as described above. ET OPERATOR documented in this encounter Plan of Treatment Upcoming Encounters Date Type Specialty Care Team Description 06/22/2022 Lab Laboratory Medicine Maria Del Rosario Gomez AP RN, C.N.P., M.S. [address] [place] [phone] (Mj godoy) 06/22/2022 Infusion Oncology AugustaMaria Del Rosario pierre APRN, C.N .P., M.S. [address] [place] [phone] (Mj godoy) 06/29/2022 Lab Laboratory Medicine Maria Del Rosario Gomez AP RN, C.N.P., M.S. [address] [place] [phone] (Mj godoy) 06/29/2022 Infusion Oncology AugustaMaria Del Rosario pierre APRN, C.N .P., M.S. [address] [place] [phone] (Mj godoy) Scheduled Referrals Name Type Priority Associated Diagnoses Order S chedule Oncology - Chemo Outpatient Referral Routine Malignant Neoplas m Expected: education visit Of Pancreas (HCC) 021, (clinic) Expires: 10/15/2021 Oncology office Outpatient Referral Routine Malignant Neoplasm Expected: visit (clinic) Of Pancreas (HCC) 10/16/19 21, Expires: 10/16/2021 documented as of this encounter Results Creatinine with Estimated GFR (10/16/2020 7:59 AM INKJET OPERATOR) athologist Signature Creatinine 0.88 0.74 - 10/16/2020 [facility] 1.35 mg/dL 8:26 AM INKJET OPERATOR eGFR-Black/Afric >90 >=60 10/16/2020 [facility] an [place] mL/min/BSA 8:26 AM INKJET OPERATOR Comment: ----ADDITIONAL INFORMATION---- Estimated GFR calculated using the 2009 CKD_EPI creatinine equation. eGFR Non-Black/ >90 >=60 mL/min/BSA 10/16/2020 8:26 AM INKJET OPERATOR M[facility] Comment: ----ADDITIONAL INFORMATION---- Estimated GFR calculated using the 2009 CKD_EPI creatinine equation. Specimen Anatomical Collection Method Collection Time Receive d Time (Source) Location / / Volume Laterality Blood (Blood, 10/16/2020 7:59 AM 10/16/19 8:04 Venous) INKJET OPERATOR AM INKJET OPERATOR Deborah VillaB.S. LAB BLOOD ADD-ON Performing Organization Address City/State/[facility] Code Phon e Number [facility] - [address] [place] [address] 05 [facility] [place] [address] Laboratories-[facility] [address] [facility] Protein, Total (10/16/2020 7:59 AM INKJET OPERATOR) athologist Signature Protein, Total, 7.6 6.3 - 7.9 10/16/2020 DTL S g/dL 8:46 AM INKJET OPERATOR Specimen Anatomical Collection Method Collection Time Receive d Time (Source) Location / / Volume Laterality Blood (Blood, 10/16/2020 7:59 AM 10/16/19 8:09 Venous) INKJET OPERATOR AM INKJET OPERATOR Deborah VillaB.S. LAB BLOOD ADD-ON Performing Organization Address City/[facility]/ZIP Code Phon e Number [facility] - [address] [place], [place] [address] [facility] [place] [address] [facility] [address] [facility] Sodium (10/16/2020 7:59 AM INKJET OPERATOR) P athologist Signature Sodium, P 137 135 - 145 10/16/2020 8:26 M[facility] mmol/L AM INKJET OPERATOR Specimen Anatomical Collection Method Collection Time Receive d Time (Source) Location / / Volume Laterality Blood (Blood, 10/16/2020 7:59 AM 10/16/19 8:04 Venous) INKJET OPERATOR AM INKJET OPERATOR Deborah VillaB.S. LAB BLOOD ADD-ON Performing Organization Address City/[facility]/ZIP Code Phon e Number [facility] - [address] [place], [place] [address] [facility] [place] [address] [facility] 200 [facility] Potassium (10/16/2020 7:59 AM INKJET OPERATOR) P athologist Signature Potassium, P 3.9 3.6 - 5.2 10/16/2020 M[facility] mmol/L 8:26 AM INKJET OPERATOR Specimen Anatomical Collection Method Collection Time Receive d Time (Source) Location / / Volume Laterality Blood (Blood, 10/16/2020 7:59 AM 10/16/19 21 8:04 Venous) INKJET OPERATOR AM INKJET OPERATOR Deborah VillaB.S. LAB BLOOD ADD-ON Performing Organization Address City/[facility]/ZIP [facility] [place] Phon e Number [facility] - [address] [place] [address] Glucose, Random (10/16/2020 7:59 AM INKJET OPERATOR) athologist Signature Glucose, S 106 70 - 140 10/16/2020 DTL mg/dL 8:46 AM INKJET OPERATOR Specimen Anatomical Collection Method Collection Time Receive d Time (Source) Location / / Volume Laterality Blood (Blood, 10/16/2020 7:59 AM 10/16/19 8:09 Venous) INKJET OPERATOR AM INKJET OPERATOR Deborah VillaB.S. LAB BLOOD TROPONIN Performing Organization Address City/State/ZIP Code Phon e Number [facility] - 200 [place], [place] [address] [facility] [place] [address] (ABNORMAL) CBC, Chemotherapy, No Alerts (10/16/2020 7:59 AM INKJET OPERATOR) Analysis Performed At Patho logist Time Signature Hemoglobin 10.7 (L) 13.2 - 10/16/2020 [facility] 16.6 g/dL 8:07 AM INKJET OPERATOR Platelet Count 399 (H) 135 - 317 10/16/2020 [facility] x10(9)/L 8:07 AM INKJET OPERATOR Leukocytes 10.7 (H) 3.4 - 9.6 10/16/2020 [facility] x10(9)/L 8:07 AM INKJET OPERATOR Neutrophils 8.12 (H) 1.56 - 10/16/2020 [facility] 6.45 8:07 AM INKJET OPERATOR x10(9)/L Specimen Anatomical Collection Method Collection Time Receive d Time (Source) Location / / Volume Laterality Blood (Blood, 10/16/2020 7:59 AM 10/16/19 8:04 Venous) INKJET OPERATOR AM INKJET OPERATOR Deborah VillaB.S. LAB BLOOD ADD-ON Performing Organization Address City/State/ZIP Code Phon e Number [facility] - [address] [place], [place] [address] [facility] [place] [address] [facility] [address] Calcium, Total (10/16/2020 7:59 AM INKJET OPERATOR) athologist Signature Calcium, Total, 9.3 8.6 - 10.0 10/16/2020 DTL S mg/dL 8:46 AM INKJET OPERATOR Specimen Anatomical Collection Method Collection Time Receive d Time (Source) Location / / Volume Laterality Blood (Blood, 10/16/2020 7:59 AM 10/16/19 8:09 Venous) INKJET OPERATOR AM INKJET OPERATOR Deborah VillaB.S. LAB BLOOD ADD-ON Performing Organization Address City/State/ZIP Code Phon e Number [facility] - [address] [place], [place] [address] [facility] [place] [id number] [place] [address] Bilirubin, Total (10/16/2020 7:59 AM INKJET OPERATOR) P athologist Signature Bilirubin, 0.5 <=1.2 mg/dL 10/16/2020 DTL Total, S 8:46 AM INKJET OPERATOR Specimen Anatomical Collection Method Collection Time Receive d Time (Source) Location / / Volume Laterality Blood (Blood, 10/16/2020 7:59 AM 10/16/19 8:09 Venous) INKJET OPERATOR AM INKJET OPERATOR Deborah VillaB.S. LAB BLOOD ADD-ON Performing Organization Address City/State/ZIP Code Phon e Number [facility] - [address] [place], [place] [address] [facility] [place] [place] [address] [facility] [address] Bilirubin, Direct (10/16/2020 7:59 AM INKJET OPERATOR) P athologist Signature Bilirubin, 0.2 0.0 - 0.3 10/16/2020 DTL Direct, S mg/dL 8:46 AM INKJET OPERATOR Specimen Anatomical Collection Method Collection Time Receive d Time (Source) Location / / Volume Laterality Blood (Blood, 10/16/2020 7:59 AM 10/16/19 8:09 Venous) INKJET OPERATOR AM INKJET OPERATOR Deborah VillaB.S. LAB BLOOD ADD-ON Performing Organization Address City/State/ZIP Code Phon e Number [facility] - [address] [place], [place] [address] [place], [place] [phone] [place] [address] AST (Aspartate Aminotransferase) (10/16/2020 7:59 AM INKJET OPERATOR) Patholo gist Method Time Signature Aspartate 19 8 - 48 10/16/2020 DTL Aminotransferase U/L 8:46 AM INKJET OPERATOR (AST), S Specimen Anatomical Collection Method Collection Time Receive d Time (Source) Location / / Volume Laterality Blood (Blood, 10/16/2020 7:59 AM 10/16/19 8:09 Venous) INKJET OPERATOR AM INKJET OPERATOR Deborah VillaB.S. LAB BLOOD ADD-ON Performing Organization Address City/State/ZIP Code Phon e Number [facility] - [address] [place], [place] [address] [place] [address] [facility] [address] (ABNORMAL) Alkaline Phosphatase (10/16/2020 7:59 AM INKJET OPERATOR) P athologist Signature Alkaline 170 (H) 40 - 129 10/16/2020 DTL Phosphatase, S U/L 8:46 AM INKJET OPERATOR Specimen Anatomical Collection Method Collection Time Receive d Time (Source) Location / / Volume Laterality Blood (Blood, 10/16/2020 7:59 AM 10/16/19 8:09 Venous) INKJET OPERATOR AM INKJET OPERATOR Deborah VillaB.S. LAB BLOOD ADD-ON Performing Organization Address City/State/ZIP Code Phon e Number [facility] - [address] [place], [place] [address] [facility] [place] [address] [facility] [address] Albumin (10/16/2020 7:59 AM INKJET OPERATOR) P athologist Signature Albumin, S 3.6 3.5 - 5.0 10/16/2020 DTL g/dL 8:46 AM INKJET OPERATOR Specimen Anatomical Collection Method Collection Time Receive d Time (Source) Location / / Volume Laterality Blood (Blood, 10/16/2020 7:59 AM 10/16/19 8:09 Venous) INKJET OPERATOR AM INKJET OPERATOR Deborah RussoS. LAB BLOOD ADD-ON Performing Organization Address City/State/ZIP Code Phon e Number [facility] - [address] [place], [place] [address] [facility] [place] [address] [facility] [address] documented in this encounter Visit Diagnoses Diagnosis Malignant Neoplasm Of Pancreas (HCC) - P rimary documented in this encounter Care Teams Manager Spa Relationship Specialty Start Date End Date Elsewhere, Pcp PCP - General Family Medicine 08/12/20 documented as of this encounter
--- OUTSIDE RECORDS SUMMARY | 2022-06-18 16:21 | XMS_ITS | Encounter Summary ---
:1965 Author Organization [facility] Address [address] [place] [address] Care Team Providers Name Role Phone Elsewhere, Pcp Primary Care Provider Unavailable Reason for Visit Episode Based Medications (Routine) - Closed Specialty Diagnoses / Procedures Referred By Contact Refer red To Contact Diagnoses Malignant Neoplasm Of Pancreas (HCC) Deborah Murray M.B.B.S. Rst Onc Rogo Procedures CA PACLITAXEL PROTEIN BOUND [address] [place] [address] [address] [place] [phone] [place] [address] Referral ID Status Reason Start Date Expiration Date Visits Requ ested Visits Authorized [id number] Closed 10/05/2020 10/05/2021 24 24 Encounter Details Date Type Department Care Team Description 10/16/2020 Education Department of Deborah Murray M.B .B.S. [address] [place] [phone] Malignant Neoplasm Of Oncology in Vy Parry R.N. [address] [place] [phone] Pancreas (HCC) [place], [place] [address] [place] [phone] Social History Tobacco Use Types Packs/Day Years [...] How often do you attend protestant or taoism services? 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 [address] [place] [phone] ( jayne) 06/22/2022 Infusion Oncology Maria Del Rosario Gomez APRN, C.N .P., M.S. [address] [place] [phone] ( jayne) 06/29/2022 Lab Laboratory Medicine Maria Del Rosario Gomez AP RN, C.N.P., M.S. [address] [place] [phone] (Mj godoy) 06/29/2022 Infusion Oncology Maria Del Rosario Gomez APRN, C.N .P., M.S. [address] [place] [phone] (Mj godoy) documented as of this encounter Visit Diagnoses Diagnosis Malignant Neoplasm Of Pancreas (HCC) documented in this encounter Care Teams Folder Operator Relationship Specialty Start Date End Date Elsewhere, Pcp PCP - General Family Medicine 08/12/20 documented as of this encounter
--- OUTSIDE RECORDS SUMMARY | 2022-06-18 16:21 | XMS_ITS | Encounter Summary ---
:1965 Author Organization [facility] Address [address] [place] [address] Care Team Providers Name Role Phone Elsewhere, Pcp Primary Care Provider Unavailable Encounter Details Date Type Department Care Team Description 10/16/2020 Education Department of Patient Deborah Murray M.B.B.S. [address] [place] [phone] Malignant Neoplasm Of Education in [facility] Sariah Mckeon M.S., R.N. [address] [place] [phone] Pancreas (HCC) [place] [address] [place] [address] Social History Tobacco Use Types Packs/Day Years [...] How often do you attend shinto or anglican services? 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 [address] [place] [phone] (Mj rk) 06/22/2022 Infusion Oncology Maria Del Rosario Gomez APRN, C.N .P., M.S. [address] [place] [phone] (Mj rk) 06/29/2022 Lab Laboratory Medicine Maria Del Rosario Gomez AP RN, C.N.P., M.S. [address] [place] [phone] (Wo rk) 06/29/2022 Infusion Oncology Maria Del Rosario Gomez APRN, C.N .P., M.S. [address] [place] [phone] (Wo rk) documented as of this encounter Visit Diagnoses Diagnosis Malignant Neoplasm Of Pancreas (HCC) documented in this encounter Care Teams Wildlife Forensic Geneticist Relationship Specialty Start Date End Date Elsewhere, Pcp PCP - General Family Medicine 08/12/20 documented as of this encounter
--- OUTSIDE RECORDS SUMMARY | 2022-06-18 16:21 | XMS_ITS | Encounter Summary ---
:1965 Author Organization [facility] Address [address] [place] [address] Care Team Providers Name Role Phone Elsewhere, [...] How often do you attend orthodoxy or hoahaoism services? 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 [address] [place] [phone] (Wo jayne) 06/22/2022 Infusion Oncology Maria Del Rosario Gomez APRN, Remy.N .P., M.S. [address] [place] [phone] (Wo rk) 06/29/2022 Lab Laboratory Medicine Maria Del Rosario Gomez AP RN, C.N.P., M.S. [address] [place] [phone] (Wo rk) 06/29/2022 Infusion Oncology Maria Del Rosario Gomez APRN, C.N .Pamela., M.S. [address] [place] [phone] (Wo rk) documented as of this encounter Procedures Procedure Name Priority Date/Time Associated Diagnosis Comme nts GI AND GENERAL Routine 10/01/2020 2:10 PM Results for this SURGERY IMAGE EXAM RESEARCH CHIEF ENGINEER procedure are in the results section. documented in this encounter Results ERCP-GI And General Surgery Image Exam (10/01/2020 2:10 PM RESEARCH CHIEF ENGINEER) Specimen (Source) Anatomical Collection Method Collection Time Re ceived Time Location / / Volume Laterality 10/01/2020 2:10 PM RESEARCH CHIEF ENGINEER Narrative [facility] - 10/01/2020 3:33 PM RESEARCH CHIEF ENGINEER This order has been created and auto-finalized [...] filedocumented in this encounter Care Teams Child Neurologist Relationship Specialty Start Date End Date Elsewhere, Pcp PCP - General Family Medicine 08/12/20 documented as of this encounter
--- OUTSIDE RECORDS SUMMARY | 2022-06-18 16:21 | XMS_ITS | Encounter Summary ---
:1965 Author Organization [facility] Address [address] [place] [address] Care Team Providers Name Role Phone Elsewhere, Pcp Primary Care Provider Unavailable Reason for Referral Specialty Diagnoses / Procedures Referred By Contact Refer red To Contact RST [facility] [address] [place] [phone] Referral ID Status Reason Start Date Expiration Date Visits Requ ested Visits Authorized ITE POLISHER MACHINE Encounter Details Date Type Department Care Team Description 10/05/2020 Clinical Communication Department of [facility] in [facility] [employer] [place], [place] [address] [facility] [address] [place] [phone] Social History Tobacco Use Types Packs/Day Years [...] How often do you attend muslim or rastafarian services? 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 [address] [place] [phone] (Wo rk) 06/22/2022 Infusion Oncology Maria Del Rosario Gomez APRN, C.N .P., M.S. [address] [place] [address] [phone] (Wo rk) 06/29/2022 Lab Laboratory Medicine Maria Del Rosario Gomez AP RN, C.N.P., M.S. [address] [place] [address] [phone] (Wo rk) 06/29/2022 Infusion Oncology Maria Del Rosario Gomez APRN, C.N .P., M.S. [address] [place] [address] [phone] (Wo rk) Scheduled Referrals Name Type Priority Associated Order Schedule Diagnoses Patient Education - Outpatient Referral Routine Malignant Neop lasm Expected: Introduction to Of Pancreas (HCC) 021 cancer care (clinic) (Approx imate), Expires: 10/06/2023 documented as of this encounter Visit Diagnoses Diagnosis Malignant Neoplasm Of Pancreas (HCC) - P rimary documented in this encounter Care Teams Post Acute Care Nurse Relationship Specialty Start Date End Date Elsewhere, Pcp PCP - General Family Medicine 08/12/20 documented as of this encounter
--- OUTSIDE RECORDS SUMMARY | 2022-06-18 16:21 | XMS_ITS | Encounter Summary ---
:[address] [facility] Address [address] [place] [phone] Care Team Providers Name Role Phone Elsewhere, Pcp Primary Care Provider Unavailable Reason for Visit Episode Based Medications (Routine) - Closed Specialty Diagnoses / Procedures Referred By Contact Refer red To Contact Diagnoses Malignant Neoplasm Of Pancreas (HCC) Deborah Murray M.B.B.S. [facility] Procedures [place] PACLITAXEL PROTEIN BOUND [address] [place] [address] [phone] [place] [address] Referral ID Status Reason Start Date Expiration Date Visits Requ ested Visits Authorized [id number] Closed 10/05/2020 10/05/2021 24 24 Encounter Details Date Type Department Care Team Description 10/16/2020 Infusion Department of Oncology Deborah Murray Malig nant Neoplasm Of Pancreas (HCC) (Primary Dx); in [facility] elke VillaBRiazS. Bacteremia [address] [place] [address] [place] [phone] [place], [place] [phone] Social History Tobacco Use Types Packs/Day Years [...] How often do you attend baptism or buddhism services? 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 [address] [place] [address] [phone] (Mj godoy) 06/22/2022 Infusion Oncology Maria Del Rosario Gomez APRN, C.N .P., M.S. [address] [place] [address] [phone] (Mj godoy) 06/29/2022 Lab Laboratory Medicine Maria Del Rosario Gomez AP RN, C.N.P., M.S. [address] [place] [address] [phone] (Mj godoy) 06/29/2022 Infusion Oncology Maria Del Rosario Gomez APRN, C.N .P., M.S. [address] [place] [address] [phone] (Mj godoy) documented as of this encounter Visit Diagnoses Diagnosis Malignant Neoplasm Of Pancreas (HCC) - P rimary Bacteremia documented in this encounter Administered Medications Inactive Administered Medications - up to 3 most recent administrations Medication Order MAR Action Action Date Dose Rate Site gemcitabine 1,800 mg in NaCl New Bag 10/16/2020 3:43 PM FLIGHT TEST SUPERVISOR 1,800 mg 595 mL/hr 0.9% 297.34 mL IVPB (GEMZAR) 1,800 mg (rounded from 1,860 mg = 1,000 mg/m2 ? 1.86 m2 Treatment Plan BSA from Measured weight), intravenous, at 595 mL/hr, Administer over 30 Minutes, Once, On Mon10/16/20 at 1500, For 1 dose HYDROmorphone injection 0.2 mg (DILAUDID ) Given 10/16/2020 2:59 PM FLIGHT TEST SUPERVISOR 0.2 mg 0.2 mg, intravenous, Once, On Mon10/16/20 at 1445, For 1 dose LORazepam 0.5 mg in NaCl 0.9% 0.5 mL infusion Given 2:59 PM FLIGHT TEST SUPERVISOR 0.5 mg (ATIVAN) 0.5 mg, intravenous, As needed, anxiety, may repeat dose if needed, Starting on Mon10/16/20 at 1431, May repeat once if needed ondansetron (PF) injection 8 mg (ZOFRAN) Given 10/16/2020 2:39 PM FLIGHT TEST SUPERVISOR 8 mg 8 mg, intravenous, Once, On Mon10/16/20 at 1430, For 1 dose PROTEIN-BOUND PACLItaxel (ABRAXANE) New Bag 10/16/2020 3:08 PM FLIGHT TEST SUPERVISOR 235 mg 94 mL/hr IVPB 235 mg 47 mL 235 mg (rounded from 232.5 mg = 125 mg/m2 ? 1.86 m2 Treatment Plan BSA from Measured weight), intravenous, at 94 mL/hr, Administer over 30 Minutes, Once, On Mon10/16/20 at 1430, For 1 dose documented in this encounter Care Teams Heavy Duty Mechanic Relationship Specialty Start Date End Date Elsewhere, Pcp PCP - General Family Medicine 08/12/20 documented as of this encounter
--- OUTSIDE RECORDS SUMMARY | 2022-06-18 16:22 | XMS_ITS | Encounter Summary ---
:1965 Author Organization [facility] Address [address] [place] [address] Care Team Providers Name Role Phone Elsewhere, Pcp Primary Care Provider Unavailable Reason for Referral MRI/CAT/PET Scan (Routine) - Closed Specialty Diagnoses / Procedures Referred By Contact Refer red To Contact Radiology Diagnoses Malignant Neoplasm Of Pancreas (HCC) Ernesto Curiel M.D. [facility] Procedures CT Abdomen Pelvis with IV Contrast [address] [place] [address] [phone] Referral ID Status Reason Start Date Expiration Date Visits Requ ested Visits Authorized [id number] Closed 09/15/2020 09/15/2021 1 1 ICATION DESIGNER Reason for Visit MRI/CAT/PET Scan (Routine) - Closed Specialty Diagnoses / Procedures Referred By Contact Refer red To Contact Radiology Diagnoses Malignant Neoplasm Of Pancreas (HCC) Ernesto Curiel M.D. [facility] Procedures CT Abdomen Pelvis with IV Contrast [address] [place] [address] [phone] Referral ID Status Reason Start Date Expiration Date Visits Requ ested Visits Authorized [id number] Closed 09/15/2020 09/15/2021 1 1 Encounter Details Date Type Department Care Team Description 09/22/2020 Hospital Encounter Department of Ernesto Curiel Neoplasm Radiology, Bradley Sifuentes M.D. Of Pancreas (HCC) [facility] [address] [facility] [phone] [address] [place], [place] (Work) [phone] Social History Tobacco Use Types Packs/Day Years [...] How often do you attend presybeterian or scientologist services? 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 enoxaparin (LOVENOX) 80 Inject 0.8 mL (80 120 Syringe 0 01/202010/30/2020 mg/0.8 mL injection mg total) under the skin 2 (two) times a day. ertapenem (INVanz) 100 Infuse 10 mL (1 g 140 mL 0 202009/23/2020 mg/mL total) into a injectionIndications: venous catheter Intra-abdominal daily for 14 days infection, community Indications: acquired Intra-abdominal infection, community acquired. oxyCODONE (ROXICODONE) 5 Take 1 tablet (5 mg 30 tablet 0 10/02/2020 mg immediate release total) by mouth tabletIndications: every 6 (six) hours Prolonged Acute as needed for pain Pain/Traumatic Injury Indication: Prolonged Acute Pain/Traumatic Injury. pantoprazole (PROTONIX) Take 40 mg by mouth 0 10/02/2020 40 mg EC tablet every morning before breakfast. polyethylene glycol Take 17 g by mouth. 0 10/01/2020 (MIRALAX) 17 gram/dose Dissolve each 17 g oral powder dose in 240 mLs (8 ounces) of beverage. sennosides (SENOKOT) 8.6 Take 8.6 mg by 0 10/22/2020 mg tablet mouth daily. sodium chloride 0.9 % Infuse 5 mL into a 100 mL 2 202010/02/2020 injection venous catheter as needed for line care for up to 20 days. documented as of this encounter Plan of Treatment Upcoming Encounters Date Type Specialty Care Team Description 06/22/2022 Lab Laboratory Medicine Maria Del Rosario Gomez AP RN, C.N.P., M.S. [address] [place] [phone] (Mj godoy) 06/22/2022 Infusion Oncology Maria Del Rosario Gomez APRN, C.N .P., M.S. [address] [place] [phone] (Mj godoy) 06/29/2022 Lab Laboratory Medicine Maria Del Rosario Gomez AP RN, C.N.P., M.S. [address] [place] [address] [phone] (Mj godoy) 06/29/2022 Infusion Oncology Maria Del Rosario Gomez APRN, C.N .P., M.S. [address] [place] [address] [phone] (Mj godoy) documented as of this encounter Procedures Procedure Name Priority Date/Time Associated Comments Diagnosis CT ABDOMEN PELVIS RAD - Routine 09/22/2020 4:00 Malignant Result s for this WITH IV CONTRAST (most inpatients PM APPLICATION DESIGNER Neoplasm Of procedu re are in and all Pancreas (HCC) the results outpatients) section. documented in this encounter Results CT Abdomen Pelvis with IV Contrast (09/22/2020 4:00 PM APPLICATION DESIGNER) Anatomical Region Laterality Modality Abdomen, Pelvis, Abdominal RST LOS, N/A Comp uted Tomography, Computed Abdominal ARZ LOS, Abdominal FLA LOS Dileep ography Specimen (Source) Anatomical Collection Method Collection Time Re ceived Time Location / / Volume Laterality 09/22/2020 6:55 PM APPLICATION DESIGNER Impressions 09/22/2020 7:19 PM APPLICATION DESIGNER 1. Slight interval increase in the known pancreatic uncinate malignancy. 2. 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 Otherwise no significant interval changes. 3. Chronic occlusion of the splenic vein . Marked stable narrowing of the upper SMV wall of the main portal vein and por aguila vein branches are widely patent. No arterial pseudoaneurysms. 4. No evidence for metastatic disease. Narrative 09/22/2020 7:19 PM APPLICATION DESIGNER EXAM: ??CT ABDOMEN PELVIS WITH IV CONTRAST COMPARISON: ??09/12/2020 CT scan of the abdomen and pelvis. FINDINGS: ??The known malignant mass in the uncinate process of the pancreas (series 3, image 59) has increased sligh tly compared to 08/18/2020 and 09/12/2020. Measuring approximately 2.3 x 1.4 cm com pared to approximately 2.1 x 1.4 cm on the 2 prior studies. 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 The fluid collections along the dome of the upper LEFT diaphra gm medially (series 3, image 34) have increased in volume mildly compared to 0 09/12/2020 (series 3, image 31). The fluid collection located between the sto mach and spleen with extension along the LEFT paracolic gutter is relatively stab le. The fluid collection tracking along the posterior aspect of the pancreatic b baldemar and tail (series 4, image 40; series 3, image 57) is stable or minimally impr samuel. Splenic vein is chronically occluded wit h numerous collaterals throughout the upper abdomen. The splenic artery remain s patent without pseudoaneurysm. Mesenteric artery is also patent. The up per aspect of the SMV is markedly narrowed just proximal to the portal vei n (series 3, image 55). The degree of narrowing has not changed significantly compared to the most recent prior. Portal veins remain widely patent. Biliary stent remains in the common duct with stable pneumobilia in the gallbladder and in minimally dilated LEF T intrahepatic bile ducts. Nothing for hepatic metastases. LEFT retroperitoneal embolization coils. Stable LEFT pleural effusion with compre ssive atelectasis. Procedure Note John Rivera M.D. - 09/22/2020Format ting of this note might be different from the original. EXAM: CT ABDOMEN PELVIS WITH IV CONTRAST COMPARISON: 09/12/2020 CT scan of the ab domen and pelvis. FINDINGS: The known malignant mass in th e uncinate process of the pancreas (series 3, image 59) has increased sligh tly compared to 08/18/2020 and 09/12/2020. Measuring approximately 2.3 x 1.4 cm com pared to approximately 2.1 x 1.4 cm on the 2 prior studies. 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 The fluid collections along the dome of the upper LEFT diaphra gm medially (series 3, image 34) have increased in volume mildly compared to 0 09/12/2020 (series 3, image 31). The fluid collection located between the sto mach and spleen with extension along the LEFT paracolic gutter is relatively stab le. The fluid collection tracking along the posterior aspect of the pancreatic b baldemar and tail (series 4, image 40; series 3, image 57) is stable or minimally impr samuel. Splenic vein is chronically occluded wit h numerous collaterals throughout the upper abdomen. The splenic artery remain s patent without pseudoaneurysm. Mesenteric artery is also patent. The up per aspect of the SMV is markedly narrowed just proximal to the portal vei n (series 3, image 55). The degree of narrowing has not changed significantly compared to the most recent prior. Portal veins remain widely patent. Biliary stent remains in the common duct with stable pneumobilia in the gallbladder and in minimally dilated LEF T intrahepatic bile ducts. Nothing for hepatic metastases. LEFT retroperitoneal embolization coils. Stable LEFT pleural effusion with compre ssive atelectasis. IMPRESSION: 1. Slight interval increase in the known pancreatic uncinate malignancy. 2. 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 Otherwise no significant interval changes. 3. Chronic occlusion of the splenic vein . Marked stable narrowing of the upper SMV wall of the main portal vein and por aguila vein branches are widely patent. No arterial pseudoaneurysms. 4. No evidence for metastatic disease. Ernesto Curiel M.D. G CT PROCEDURES documented in this encounter Visit Diagnoses Diagnosis Malignant Neoplasm Of Pancreas (HCC) documented in this encounter Administered Medications Inactive Administered Medications - up to 3 most recent administrations Medication Order MAR Action Action Date Dose Rate Site iohexoL 300 mg iodine/mL solution Given 09/22/2020 3:47 PM APPLICATION DESIGNER 1 50 mL 1-200 mL (OMNIPAQUE) 1-200 mL, intravenous, Once in imaging, contrast, Starting on 09/22/20 at 1516, For 1 dose, Imaging Protocol Orders, Dose per Radiant Medication Guidelines sodium chloride (PF) 0.9 % injection 1-1 00 mL Given 09/22/2020 3:47 PM APPLICATION DESIGNER 50 mL 1-100 mL, intravenous, Once, On e 09/22/20 at 1530, For 1 dose, Imaging Protocol Orders documented in this encounter Care Teams Bottom Precipitator Operator Relationship Specialty Start Date End Date Elsewhere, Pcp PCP - General Family Medicine 08/12/20 documented as of this encounter
--- OUTSIDE RECORDS SUMMARY | 2022-06-18 16:22 | XMS_ITS | Encounter Summary ---
:1965 Author Organization [facility] Address [address] [place] [address] Care Team Providers Name Role Phone Elsewhere, Pcp Primary Care Provider Unavailable Reason for Referral MRI/CAT/PET Scan (Routine) - Closed Specialty Diagnoses / Procedures Referred By Contact Refer red To Contact Radiology Diagnoses Malignant Neoplasm Of Pancreas (HCC) Ernesto Curiel M.D. [facility] Procedures CT Abdomen Pelvis with IV Contrast [address] [place], [place] [phone] Referral ID Status Reason Start Date Expiration Date Visits Requ ested Visits Authorized [id number] Closed 09/15/2020 09/15/2021 1 1 ING ENFORCER Outpatient (Routine) - Closed Specialty Diagnoses / Procedures Referred By Contact Refer red To Contact Diagnoses Bacteremia Pancreatitis Post Endoscopic Retrograde Cholangiopancreatography (HCC) Jesse Ramirez M.D. [address] [place] [address] Referral ID Status Reason Start Date Expiration Date Visits Requ ested Visits Authorized [id number] Closed 09/15/2020 09/15/2021 1 1 ING ENFORCER Reason for Visit Reason Comments Flank Pain Auth/Cert Specialty Diagnoses / Procedures Referred By Contact Refer red To Contact Diagnoses Pain Generalized Abdominal Procedures ETU Referral ID Status Reason Start Date Expiration Date Visits Requ ested Visits Authorized [id number] 1 1 Encounter Details Date Type Department Care Team Description 09/12/2020 [facility] Pj Dixon M. D., M.P.H. [address] [place] [phone] Pain Generalized Abdominal (Primary Dx); - Encounter [facility], Yousif Lizarraga M.D. [address] [place] [phone] Bacteremia; 09/15/2020 [facility], Vishal Dunn M.D. [address] [place] [phone] Pancreatitis Post Endoscopic Retrograde Cholangiopancreatography (HCC); [facility], Malignant Neoplasm Of Pancreas (HCC) Fourth Floor [address] [place] [address] Social History Tobacco Use Types [...] How often do you attend anglican or church services? Never 01/15/2021 Do you [...] at Date Recorded Male 08/18/2021 2:55 PM PARKING ENFORCER documented as of this encounter Last Filed Vital Signs Vital Sign Reading Time Taken Comments Blood Pressure 104/60 09/15/2020 7:30 AM PARKING ENFORCER Pulse 87 09/15/2020 7:30 AM PARKING ENFORCER Temperature 36.4 ??C (97.5 ??F) 09/15/2020 7:30 AM PARKING ENFORCER Respiratory Rate 16 09/15/2020 7:30 AM PARKING ENFORCER Oxygen Saturation 97% 09/15/2020 7:30 AM PARKING ENFORCER Inhaled Oxygen Concentration - - Weight 76.2 kg (167 lb 15.9 oz) 09/12/2020 3:13 PM PARKING ENFORCER Height 177.7 cm (5' 9.96) 09/13/2020 4:30 PM PARKING ENFORCER Body Mass Index 24.13 09/12/2020 3:13 PM PARKING ENFORCER documented in this encounter Discharge Summaries Jesse Ramirez M.D. - 09/15/2020 12:36 PM CST DISCHARGE SUMMARY BRIEF OVERVIEW Hospital: [facility] Discharge Provider: Vishal Dunn M.D. Primary Care Provider at Discharge: Primary Care Providers: Elsewhere, Pcp (General) No address on file Primary Care Provider Phone Number: None Primary Care Provider Fax Number: None Other Providers: None Primary Team: [facility] Gastroenterology B Admission Date: 09/12/2020 Discharge Date: 09/15/20 PRINCIPAL DIAGNOSIS Malignant Neoplasm Of Pancreas (HCC) SECONDARY DIAGNOSES Principal Problem: Malignant Neoplasm Of Pancreas (HCC) Active Problems: Portal Vein Thrombosis Pain Generalized Abdominal Pseudocyst Pancreas (HCC) Fever With Chill Resolved Problems: * No resolved hospital problems. * DISCHARGE DISPOSITION Home-Health Care [facility] [6] ACTIVE ISSUES REQUIRING FOLLOW UP GI RECOMMENDATIONS: 1. Weekly CT abdomen/pelvis with contrast to reassess fluid collections and to decide on optimal timeframe for cystgastrostomy and drainage. 2. Follow-up in Oncology and GI on 09/23/2020 ID RECOMMENDATIONS: INFECTIOUS DISEASES SIGN OFF NOTE: Primary Team 1. Ertapenem 1g Q24 hours. Tentative stop date to be determined. This will depend on ability to achieve source control/timing of abscess drainage if this is possible. Final stop date to be determined at follow up visit - ideally ID and GI followup will be coordinated on the same day. 2. Monitoring lab recommendations: Yes, weekly on antibiotics. Complete blood count with differential, Alanine aminotransferase (ALT), Creatinine, Alkaline phosphatase, Aspartate aminotransferase (AST), Direct bilirubin and Total bilirubin Please fax to division of Infectious Diseases OPAT monitoring program at [phone] after dismissal. Primary service to follow labs while patient is hospitalized. [place] pharmacist to adjust dosing after dismissal 3. Other monitoring considerations: None Infectious Diseases 1. Maintain PICC until follow up. 2. Follow up with ID, likely on 09/23/20. We have reached out to ID scheduling to coordinate this with his other visits. The duration of antibiotics will depend on the ability to get source control of the abscess. OUTPATIENT FOLLOW UP Scheduled Appointments 09/23/2020 10:00 AM Deborah Murray M.B.BRiazS. Oncology 09/23/2020 3:00 PM Ernesto Curiel M.D. Gastroenterology and Hepatology For appointment details refer to your Patient Appointment Guide. TEST RESULTS PENDING AT DISCHARGE Pending Labs Order Current Status Bacteria / Brigid Culture, Blood # 2 Preliminary result Bacteria / Brigid Culture, Blood #1 Preliminary result DETAILS OF HOSPITAL STAY REASON FOR ADMISSION Pain Generalized Abdominal HOSPITAL COURSE Mr. Adam Campbell is a 55 y.o. 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 In the [facility] ED, he was afebrile, tachycardic to 116, and normotensive. Labs showed WBC 12.2, total bilirubin 0.8, ALT 63 (215 on 09/09), alkaline phosphatase 356 (554 on 09/09), lactate 1.38, blood cultures drawn. CT AP revealed complex necrotizing peripancreatic fluid collections with new gas foci highly suspicious for infection, persistent left portal vein thrombus, severe narrowing of the SMV, and unchanged pancreatic uncinate malignancy. He was admitted to the GI-B service for further management,where antibiotic coverage was broadened to Zosyn. His imaging was reviewed by ERCP/EUS specialists, who felt that the loculated fluid collections were not mature enough for cystgastrostomy and drainage. ID was re-consulted and recommend switching to ertapenem on discharge. He was discharged in stable condition on 09/15/20 with plans to undergo weekly CT AP with contrast to reassess optimal timing of cystgastrostomy and drainage. Outpatient follow-up with ID and oncology was also arranged. Physical exam General: No acute distress, well-appearing Head: Normocephalic, atraumatic Eyes: Anicteric ENT: Within normal limits Cardiovascular: Regular rate and rhythm, normal S1-S2, no murmurs, rubs, or gallops. No peripheral edema. Pulmonary: Breath sounds clear to auscultation and equal bilaterally. No rales, wheezes, or rhonchi. Abdomen: Soft, nontender, nondistended Lymph: No cervical lymphadenopathy Neuro: Alert and oriented, no focal deficits Mental: Appropriate mood and affect MSK: No joint swelling or deformity CONSULTS ORDERED DURING THIS ADMISSION IP CONSULT TO DIETITIAN IP CONSULT TO CARE MANAGEMENT IP CONSULT TO INFECTIOUS DISEASES IP CONSULT TO CARE MANAGEMENT Pertinent Diagnostic Results: Radiology: CT scan: CT abdomen/pelvis with IV contrast IMPRESSION: 1. Extensive necrotizing peripancreatic fluid collections appear similar in size to the MRI from 09/09/2020. New foci of gas within the collections are highly suspicious for infection. 2. 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 3. Known pancreatic uncinate malignancy appears unchanged. 4. Indeterminate hypoenhancing region in the inferior right liver. CONDITION AT DISCHARGE stable Discharge instructions were provided to the patient and caregiver(s). Jesse Ramirez M.D. Internal Medicine PGY-1 Gastroenterology B ING ENFORCER documented in this encounter Discharge Instructions Discharge InstructionsDenisa Tate - 09/14/2020 6:01 AM CST You were discharged from the [facility] Gastroenterology B Service. Please identify this service name if you call with questions after hospitalization. ING ENFORCER AttachmentsThe following attachments cannot be sent through Care Everywhere. Ertapenem (By injection) ([place])Sodium Chloride (By mouth) ([place])Sodium Chloride (By injection) ([place])documented in this encounter Medications at Time of Discharge Medication Sig Dispensed Refills Start Date End Date acetaminophen (TYLENOL) Take 1 tablet (500 0 /01/202001/01/2021 500 mg tablet mg total) by mouth [...] by 0 10/22/2020 mg tablet mouth daily. ertapenem (INVanz) 100 Infuse 10 mL (1 g 140 mL 0 202009/23/2020 mg/mL total) into a injectionIndications: venous catheter Intra-abdominal daily for 14 days infection, community Indications: acquired Intra-abdominal infection, community acquired. sodium chloride 0.9 % Infuse 5 mL into a 100 mL 2 202010/02/2020 injection venous catheter as needed for line care for up to 20 days. documented as of this encounter Progress Notes Vishal Dunn M.D. - 09/15/2020 10:02 AM CST Inpatient Progress Note 09/15/2020 Subjective: This is a supervisory note for Eber Zimmerman MD. I have reviewed the available records, interviewedand examined the patient. I agree with the history, physical examination, and plan as outlined in Eber Zimmerman MD's note dated today. Overnight, he had no acute events and has remained afebrile and reports no pain for over 18 hours this morning. Objective: Temperature: [36.4 ??C-37.4 ??C] 36.4 ??C Resp Rate: [14-18] 16 Blood Pressure: (94-109)/(53-66) 104/60 SpO2: [92 %-97 %] 97 % Pulse Rate: [87-110] 87 Assessment / Plan: #1 Infected peripancreatic necrosis He is currently on Zosyn and we appreciate the input of ID. Blood cultures have been negative. We did review the CT images with our advanced endoscopy colleagues and the collections are not felt to be mature enough for cystgastrostomy and drainage. He is tolerating diet and there is no indication for [place] placement. He is without pain or fever at this time. We therefore will plan to discharge with CT scan in 1 week to reassess the collections to determine timing of cystgastrostomy. We appreciate the input of ID and they are currently deciding between discharge on zosyn versus ertapenem. #2 Infected Portal vein thrombosis #3 SMV narrowing He is currently on lovenox and we appreciate the input of ID as he is on antibiotics as outlined above. #4 Borderline resectable pancreatic adenocarcinoma He is not a candidate for resection or chemotherapy in this setting with necrotizing pancreatitis. He does have outpatient follow up with medical oncology already scheduled #5 Disposition We plan on dismissal today with outpatient follow up with CT in [address] Ernesto Curiel is the fellow during this patient's hospitalization. ING ENFORCER Mariela Luis L.G.S.W., M.S.W. - 09/15/2020 8:04 AM CST SUBJECTIVE Patient is medically ready to discharge and both HHC and infusion services have been reconnected. Patient declined any additional questions, concerns, or needs for social work at this time. His isready to transport, whenever he is ready. Patient appears to be coping well with discharge and transition back to home. The patient was seen for ongoing discharge needs. A list of home health care infusion options (that patient/family geographically resides or requests) has been provided to and reviewed with patient/family. Disclaimers: Financial disclosure provided informing patient of our ownership and financial relationship of the [facility] beds/home health & hospice agencies. Reviewed insurance coverage, provided patient with in-network options if applicable. Patient/family have indicated a preference for the facility/agency below. patient and family declined additional resources. OBJECTIVE Anticipated modifications to the home environment: None Patient requires the following additional equipment upon dismissal: None ASSESSMENT / PLAN Assessment The patient/family appear to have insight into the patient's needs at this time and are planning appropriately for discharge needs. The patient/family report agreement with the below plan with no further questions at this time. Plan Patient will discharge home with home infusions. Individuals have been identified who are willing and able to learn the infusion technique. Selected Continued Care - Admitted Since 09/12/2020 ?? Dialysis/Infusion Coordination complete ?? Service Provider Selected Services Address Phone Fax Patient Preferred ?? [facility] [address] [place] [phone] -- ?Contact: Intake ?? NURSING: - Adjust the dosing schedule to [...] dismissal information with patient, including advance directive. ?? PRIMARY SERVICE: - Prescription needs to be [...] needs to be sent there as well. ?? Site care and blood draws will be managed by Home Care: Selected Continued Care - Admitted Since 09/12/2020 ?? Home Medical Care Coordination complete ?? Service Provider Selected Services Address Phone Fax Patient Preferred ?? [facility] [address] [facility] [phone] -- ?? Contact: Intake They will provide the nursing, patient family teaching, and IV access care for this patient. ?? NURSING: - Complete documentation in the Discharge Navigator including Nursing Report Info and Facility/NextLevel of Care Info - Call report and arrange for the patient's first visit - Send After Visit Summary and required packet of dismissal information with patient, including advance directive. ?? PRIMARY SERVICE: - Please provide an order for: custodial for PICC site care and lab draws in the After Visit Summary. - Communicate with the patient's local primary care provider by telephone for writing of home care orders. This needs to be done to help prevent discharge delays. A copy of the After Visit Summary needs to be sent there as well. SOCIAL WORK: -Will continue to follow for ongoing discharge planning needs. Timmy Bruner, M.S.W. 09/15/2020 ING ENFORCER Tashi Jansen M.D. - 09/15/2020 7:29 AM CST Infectious Diseases [facility] Consulting Service Sign Off Note SUBJECTIVE REASON FOR CONSULTATION [facility]-ID service pager at [phone] is following Adam Campbell for peripancreatic abscess with air concerning for a necrotizing infection in the setting of pancreatic adenocarcinoma. EVENTS OVER THE PAST 24 HOURS: - patient remains stable on zosyn - GI has decided against ERCP/drainage in the setting of maturing loculations OBJECTIVE PHYSICAL EXAMINATION VITAL SIGNS I have reviewed the current vital sign data as applicable. Patient not seen in person in the setting of COVID-19 pandemic. DIAGNOSTICS I have reviewed diagnostics. Studies of note include: Vitally stable Remains on zosyn White count increased at 13.7 from 12 Mild transaminitis including ALT 68, AST 37, Alk Phos 371 Blood CX remain negative ASSESSMENT / PLAN #1 Malignant Neoplasm Of Pancreas (HCC) #2 Portal Vein Thrombosis #3 Pain Generalized Abdominal #4 Pseudocyst Pancreas (HCC) #5 Fever With Chill Mr. Campbell is a 55-year-old man who presented with worsening abdominal pain, fevers, chills, and night sweats in the setting of pancreatic adenocarcinoma. This has been complicated by malignant biliary stenosis with stent placement 07/29 and post ERCP pancreatitis requiring balloon dilatation on 08/04.Even more recently he was found to have an infected portal vein thrombus for which he has been on anticoagulation and antibiotics in the outpatient setting. Prior cultures were positive for pansensitive strep anginosus and he received ceftriaxone until more recent elevation of LFTs which prompted a switch ertapenem- LFTs downtrended nicely with this. Workup this admission is significant for a new peripancreatic abscess with air concerning for a necrotizing infection. However given the immaturity of the fluid collections/loculations he is not a candidate for drainage at this time. He was stable on zosyn during this admission. He was on ertapenam prior to admission in the outpatient setting which remains an ideal outpatient regimen given the frequency of administration and prior improvement of transaminitis on this compared to ceftriaxone. See the plan below. INFECTIOUS DISEASES SIGN OFF NOTE: Primary Team 1. Sign off antibiotics: ?? Please consult care management for OPAT dismissal planning ?? Ertapenem 1g Q24 hours Tentative stop date to be determined. This will depend on ability to achieve source control/timing of abscess drainage if this is possible. Final stop date to be determined atfollow up visit - ideally ID and GI followup will be coordinated on the same day. 2. Monitoring lab recommendations: Yes, weekly on antibiotics. Complete blood count with differential, Alanine aminotransferase (ALT), Creatinine, Alkaline phosphatase, Aspartate aminotransferase (AST), Direct bilirubin and Total bilirubin Please fax to division of Infectious Diseases OPAT monitoring program at [phone] after dismissal. Primary service to follow labs while patient is hospitalized. [place] pharmacist to adjust dosing after dismissal 3. Other monitoring considerations: None Infectious Diseases 1. PICC/Therapy: Maintain PICC until follow up. 2. Follow up indicated: Yes, followup is needed, ideally on the same day as GI followup which is nowscheduled for 09/23/20. I have asked the primary team to help us coordinate his ID followup on or around the same day and they have reached out to ID scheduling. The duration of antibiotics will depend on the ability to get source control of the abscess. We will sign off at this time. Please page [facility]-ID service pager at [phone] with any questions. Tashi Jansen M.D. ING ENFORCER Associated attestation - Jewel Toledo M.D. - 09/15/2020 2:34 PM PARKING ENFORCER I reviewed Dr. Jansen 's note. I agree with the documented findings and plan. Will transition from IV Zosyn to IV Ertapenem on day of discharge. Duration of therapy is unknown and will be decided at follow up with ID and GI with repeat CT imaging--this is scheduled for 09/23/20. Depending on the findings of the CT and whether he goes for additional procedures, may need to continue IV Ertapenem versus oral ABX therapy versus stopping. I suspect he will need continued IV Ertapenem. Jewel Toledo M.D. Infectious Diseases Annealing Furnace Operator Pager: [phone] Mariela Luis L.G.S.W., M.S.W. - 09/14/2020 1:53 PM CST SUBJECTIVE Social work completed reconnection of infusion and HHC services. OBJECTIVE Social work continues with dismissal care coordination. ASSESSMENT / PLAN ASSESSMENT Patient not assessed today. PLAN Patient will discharge home with home infusions. Individuals have been identified who are willing and able to learn the infusion technique. Selected Continued Care - Admitted Since 09/12/2020 Dialysis/Infusion Coordination complete Service Provider Selected Services Address Phone Fax Patient Preferred [facility] [address] [address] [phone] -- Contact: Intake NURSING: - Adjust the [...] draws will be managed by Home Care: Selected Continued Care - Admitted Since 09/12/2020 Home Medical Care Coordination complete Service Provider Selected Services Address Phone Fax Patient Preferred [facility] [address] [facility] [phone] -- Contact: Intake They will provide the [...] SERVICE: - Please provide an order for: custodial for PICC site care and lab draws in the After Visit Summary. - Communicate with the patient's local primary care provider by telephone for writing of home care orders. This needs to be done to help prevent discharge delays. A copy of the After Visit Summary needs to be sent there as well. SOCIAL WORK: -Will continue to follow for ongoing discharge planning needs. Reji Gómez - 09/14/2020 1:50 PM CST Encounter: Initial visit. Back Strip Machine Operator Initiated Situation: Mr. Campbell is hospitalized with pancreatitis that must be managed before addressing any treatment for his pancreatic cancer (per patient). He is hoping to be discharged home tomorrow and recuperate there before returning at some point to address his cancer. He shared that he was on the top of the world 6 months ago before all of this happened. 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 He now thinks that krista need to retire and may not be able to complete his current car project. The impact of these changes in his life were discussed and considered. Hospitalization and inactivity are both very difficult 'places' for him to be. 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 Now my mind is racing about all that I need to be doing and I cannot do any of it. Family: Mr. Campbell is , has two children and 3 grandchildren. Neyda Tradition: Mr. Campbell is not religous. I believe in God, but not in hell. I don't think everyone will go to on license of [facility]. I would rather stay on earth and do things. I would be more useful here. I studied [employer]ian doctrine for a while. Some of it seems right but not all of it. Mr. Campbell requested prayer which was shared. Plan: Will remain available for spiritual care as needed or requested. [facility]pl[facility] [phone] ([place]). Vishal Fry M.D. - 09/14/2020 11:24 AM CST Inpatient Progress Note 09/14/2020 Subjective: This is a supervisory note for Eber Zimmerman MD. I have reviewed the available records, interviewedand examined the patient. I agree with the history, physical examination, and plan as outlined in Eber Zimmerman MD's note dated today. Overnight, the patient did spike a fever to 38.4. His pain is controlled with oral pain regimen thismorning. Objective: Temperature: [36.7 ??C-38.4 ??C] 36.7 ??C Resp Rate: [14-16] 14 Blood Pressure: (91-117)/(52-78) 94/62 SpO2: [90 %-94 %] 94 % Flow Rate (L/min): [0 L/min] 0 L/min Pulse Rate: [96-114] 96 Assessment / Plan: #1 Infected peripancreatic necrosis He is currently on Zosyn and we appreciate the input of ID. Blood cultures to date have been negative. We did review the CT images with our advanced endoscopy colleagues and the collections are not felt to be mature enough for cystgastrostomy and drainage. He is tolerating diet and there is no indication for [place] placement. We will plan to observe today in the hospital. We will need to devise an outpatient antibiotic plan and if we can we could potentiallydischarge with repeat imaging in 1 to 2 weeks to assess for possible cystgastrostomy. #2 Portal vein thrombosis #3 SMV narrowing He is currently on lovenox #4 Borderline resectable pancreatic adenocarcinoma He is not a candidate for resection or chemotherapy in this setting with necrotizing pancreatitis. He does have outpatient follow up with medical oncology already scheduled #5 Disposition This is pending a plan regarding outpatient antibiotics and pain control in anticipation of follow up CT in 1 to 2 weeks for consideration of cystgastrostomy Dr Ernesto Curiel is the fellow during this patient's hospitalization. ING ENFORCER Eber Zimmerman M.D. - 09/14/2020 9:54 AM CST GI-B SERVICE PROGRESS NOTE SUBJECTIVE No acute events overnight. He was febrile to 38.4 yesterday at 8:00 p.m., but otherwise has remainedvitally stable. He reports his pain is generally well controlled with oral pain medications, although he does have occasional pain with passage of gas. Otherwise has no complaints this morning. Labs show mild increase in WBC 11.1 > 12.0, normal BMP, and slight increase in LFTs (ALT 40 > 79, AST 14 > 52, ALP 253 > 355). Blood cultures from 09/12 remain negative today. He remains onZosyn. I have reviewed the current medication list. OBJECTIVE VITAL SIGNS Temperature: [36.6 ??C-38.4 ??C] 36.7 ??C Resp Rate: [14-16] 14 Blood Pressure: (91-117)/(52-78) 94/62 SpO2: [90 %-94 %] 94 % Flow Rate (L/min): [0 L/min] 0 L/min Pulse Rate: [96-114] 96 Intake/Output Last 24 Hours: Intake/Output Summary (Last 24 hours) at 09/14/2020 0954 Last data filed at 09/14/2020 0841 Gross per 24 hour Intake 1890 ml Output 1200 ml Net 690 ml PHYSICAL EXAM General: Awake, alert, in no acute distress sitting up comfortably in bed, able to converse without issue Chest: Lungs CTAB, RRR, no murmurs/rubs/gallops Abdomen: + bowel sounds, soft, non-tender to light palpation this morning, non-distended Extremities: Warm and well perfused, 2+ distal tibial pulses, no lower extremity edema DIAGNOSTICS Recent Labs 09/14/20 0604 NA 135 CL 98 BICARB 27 CALCIUM 8.2 L BUN 8 CREATININE 0.99 GLUCOSE 110 ALBUMIN 2.7 L HGB 9.2 L HCT 28.9 L WBC 12.0 H PLT 304 INR 1.5 PT 16.3 H ASSESSMENT / PLAN Mr. Adam Campbell is a 55 y.o. male with past medical history significant for pancreatic adenocarcinoma, malignant biliary stenosis s/p stent 07/29 (complicated by post-ERCP pancreatitis) and balloon dilation 08/04, likely infected non-occlusive portal vein thrombosis complicated by Strep anginosus bacteremia who presents with worsening abdominal pain, fevers, chills, night sweats. Imaging on admission showed extensive but unchanged necrotizing peripancreatic fluid collections with new foci ofgas within the collections suspicious for infection, as well as persistent left portal vein thrombusand unchanged pancreatic uncinate malignancy. Unfortunately, it does not appear as though these fluid collections will be amenable to drainage at this time, they recur further maturation. We will therefore continue IV antibiotics and keep him inpatient until we decide on appropriate home going regimenand can ensure clinical stability. # Infected necrotizing peripancreatic fluid collections # Fevers # Recent post-ERCP pancreatitis, 07/2020 CT AP on admission showed extensive but unchanged necrotizing peripancreatic fluid collections with new foci of gas within the collection suspicious for infection; this is likely a sequela of his recent pancreatitis, with superimposed infection. He has already been on approximately 1 month of IV antibiotics (ceftriaxone, followed by her Dipentum started 09/09). Definitive source control would be drainage of these fluid collections; however, on our discussion with our colleagues in ERCP/EUS, it appears these collections, although loculated, have not yet matured to an appropriate degree for drainage a t this time. Will therefore continue IV antibiotics. We hope that in the next few weeks, the fluid collections will mature and render drainage more feasible. In the meantime, patient will remain admitted to ensure clinical stability (no fevers) and optimal antimicrobial therapy. - defer ERCP for a few weeks pending maturation of loculations - continue IV Zosyn for now, query ertapenem on discharge > appreciate ID assistance for deciding homegoing regimen - anticipate outpatient follow up with repeat imaging within 1-2 weeks of discharge to decide on optimal timeframe for drainage of fluid collections # Non-occlusive portal vein thrombosis # Recent Strep anginosus bacteremia secondary to above, 08/2020 - follow up blood cultures from admission 09/12: no growth to date - continue therapeutic Lovenox 80 mg SQ q12h # Pancreatic uncinate malignancy # Recurrent malignant biliary stenosis s/p stent and balloon dilatation, 07/2020 Unfortunately, his infection will likely take on the order of several weeks to months to resolve, and any plans for neoadjuvant chemotherapy and surgery will be accordingly delayed. Certainly this is most concerning with regards to his overall prognosis, and we will need to continue facilitating discussions regarding this. - outpatient follow up with Oncology after discharge # Severe malnutrition - I agree with the dietary assessment and treatment which includes medical food supplement - trial Premier Protein Current activity/mobility: PAMP Level 4 (walks frequently) Diet: general diet Tubes/lines: PIV VTE prophylaxis: therapeutic anticoagulation Code status: Full Code Disposition: Home with expected discharge date Stable to discharge criteria (not met): Vital signs and Tests/procedures/consults This case was staffed with Dr. Dunn. Please page the GI-B Service at [phone] with any questions orconcerns. Eber Zimmerman M.D. Internal Medicine PGY-2 [employer] Tashi Jansen M.D. - 09/14/2020 8:01 AM CST Infectious Diseases [facility] Consulting Service Progress Note SUBJECTIVE REASON FOR CONSULTATION [facility]-ID service pager at [phone] is following Adam Campbell for peripancreatic abscess with air concerning for a necrotizing infection. EVENTS OVER THE PAST 24 HOURS: none - patient remains stable on zosyn - GI has decided against ERCP/drainage in the setting of maturing loculations OBJECTIVE PHYSICAL EXAMINATION VITAL SIGNS I have reviewed the current vital sign data as applicable. Physical Exam DIAGNOSTICS I have reviewed diagnostics. Studies of note include: Vitally stable Remains on zosyn White count stable around 12 AST 52, ALT 79, alk phos 355 all mildly increased from yesterday Blood cx remain negative ASSESSMENT / PLAN #1 Malignant Neoplasm Of Pancreas (HCC) #2 Portal Vein Thrombosis #3 Pain Generalized Abdominal #4 Pseudocyst Pancreas (HCC) #5 Fever With Chill Mr. Campbell is a 55-year-old man who presented with worsening abdominal pain, fevers, chills, and night sweats in the setting of pancreatic adenocarcinoma. This has been complicated by malignant biliary stenosis with stent placement 07/29 and post ERCP pancreatitis requiring balloon dilatation on 08/04.Even more recently he was found to have an infected portal vein thrombus for which he has been on anticoagulation and antibiotics in the outpatient setting. Prior cultures were positive for pansensitive strep anginosus and he received ceftriaxone until more recent elevation of LFTs which prompted a switch ertapenem- LFTs downtrended nicely with this. Workup this admission is significant for a new peripancreatic abscess with air concerning for a necrotizing infection. However given the immaturity of the fluid collections/loculations he is not a candidate for drainage at this time. He remains stable on zosyn which is appropriate while inpatient. More than likely this collection is polymicrobial for which this is a good choice. Should he show signs of clinical deterioration we should broaden to include antifungals. Cause of back pain is slightly concerning though no sign of infection on the CT abdom en/pelvis on review- I did call radiology and on re-review they did not seen anything concerning formets or infection. See the plan below. ?? RECOMMENDATIONS: 1. Continue zosyn 3.375 g IV q 6 hours while inpatient. 2. Should he show signs of worsening infection can add caspofungin 70 mg once then 50 mg q24h. Please notify us if this is the case 3. If back pain worsens consider spine MRI ?? We are anticipating discharge tomorrow and will likely resume homegoing ertapenem. We will weigh in regarding this and outpatient appt prior to discharge. Please page the [facility] servicepager at [phone] with questions. Thank you for the consultation. Tashi Jansen M.D. [facility] Associated attestation - Jewel Toledo M.D. - 09/14/2020 3:35 PM [facility] [employer] I reviewed Dr. Jansen 's note. I agree with the documented findings and plan. Patient was not seen or examined due to COVID-19 worldwide pandemic to slow the spread. Recommendations based on clinical documentation at the time of this note. 55 y/o male with a history of pancreatic adenocarcinoma complicated by malignant biliary stenosis with stent placement on 07/29 and post-ERCP pancreatitis requiring balloon dilatation on 08/04--found to have an infected portal vein thrombus on ABX and anticoagulation in the outpatient setting. He now returned with fevers, abdominal and back pain. CT showed extensive necrotizing peripancreaticfluid collections with new foci of gas within the collection concerning for infection. He was placedon IV Zosyn. Anticpating D/C tomorrow on IV Ertapenem. Jewel Toledo M.D. Infectious Diseases [employer] Pager: [phone] Shelby Nichols, MADELINE, LD - 09/13/2020 4:34 PM CST Clinical Nutrition: Initial Assessment RECOMMENDATIONS REQUIRING MD/PROVIDER ORDER No changes at this time; continue current nutrition orders Will trial Premier Protein to see if tolerates it with goal of increasing caloric intake. For questions about patient's nutritional care please contact pager [phone] on weekdays or [phone] on weekends/holidays.. NUTRITION ASSESSMENT: Mr. Campbell is a 55 y.o. male admitted for concerns of infected SMV thrombus and infected peripancreatic fluid. Unfortunately, this will delay chemo. PMH includes pancreatic [place], malignant biliary stenosis s/p stent 07/29 c/b post ERCP pancreatitis, recent bacteremia for which he was dismissed on antibiotics but continues to have symptoms (fever, chills, night sweats and worsening abd pain). Requested to see patient for evaluation of: positive nursing baseline nutrition screen with a MST score of 2 or greater. MALNUTRITION CRITERIA: Recent Oral Intake Average estimated Intake: Less than or equal to 50% for 5 or more days Weight Changes Weight Loss: >5% in 1 month Body Fat Body Fat: Normal Orbital Region: Slightly bulged fat pads Upper Arm Region (Triceps/biceps): Ample fat tissue obvious between folds of skin Thoracic and Lumbar Region (Rib/lower back/midaxillary line): Chest is full, ribs do not show. Slight to no protrusion of the iliac crest Muscle Mass Muscle Mass: Mild Loss Temporal Region (Temporalis Muscle): Slight depression Clavicle Bone Region (Pectoralis Major, Deltoid, Trapezious Muscles: Visible in male, some protrusion in female Clavicle and Acromion Bone Region (Deltoid Muscle) : Rounded, curves at arm/shoulder/neck Dorsal Hand (Interosseous Muscle): Muscle bulges or is flat Patellar Region (Quadricep Muscle): Muscle protrudes, bones not prominent Anterior Thigh Region (Quadriceps Muscle): Well-rounded, well-developed Posterior Calf Region (Gastrocnemious Muscle) : Well-developed bulb of muscle Nutritional Status: Severe Malnutrition Malnutrition in the Context of: Acute Illness or Injury Current nutrition orders: Current Diet No oral nutrition, no tube feeding starting at 09/14 0000 Adult Diet Regular starting at 09/13 0813 Completed visit with patient today as part of face to face care. Current Nutrition (since admission): 50-100% meals Nutrition history: Patient reports forcing food down at home. He has been eating about 50% of his usual intake the past 5 days, but feels he is eating better today. He has been trying to be careful with diet d/t recent pancreatitis (no spicy foods, low fat, doesn't tolerate milk or cereal). He reportsweighing almost 200 pounds (90.9 kg) 5 weeks ago, so has lost 16% of his weight over the past 5 weeks. He doesn't tolerate Ensure, but is willing to try Premier Protein. He is also interested in information about diet and cancer (mostly ways to avoid feeding the cancer). ANTHROPOMETRICS: Height: 177.7 cm Admission Weight: 76.2 kg (09/12/2020) Current Weight: 76.2 kg Usual Body Weight: 90.9 kg [place] Body Weight (Calculated) : 75.4 kg BMI (Calculated): 24.1 kg/m?? Weight Change History: 08/12/20: 82.4 kg; 09/12/20: 76.2 kg - this suggests an 8% wt loss over one month ESTIMATED NEEDS: Total Calorie Needs: calories/day Method to Estimate Energy Needs: Ramirez-Henriette (Basal to Basal + 20%) Weight Used for Equation Calculations: 76.2 kg Total Protein Needs: 76 - 91 grams/day Method to Estimate Protein Needs (g/kg): 1 - 1.2 gm/kg Weight Used to Calculate Protein Needs (Kg): 76.2 kg NUTRITION DIAGNOSIS: Inadequate oral intake related to poor appetite and limitations with diet d/t pancreatitis as evidenced by weight loss NUTRITION PLAN/MONITORING/EVALUATION: Interventions: Medical food supplement. Monitoring: Meals/Supplement Intake, Weight Status . [facility] [employer] documented in this encounter H&P Notes Tulio Neves M.B.B.S., M.S. - 09/13/2020 8:41 AM CST Hospital Admission Note Adam Campbell [phone] Date: 09/13/2020 Chief Complaint/Reason for Admission: Malignant Neoplasm Of Pancreas (HCC) with infected pancreatic necrosis This is a supervisory note for Dr. Timothy Chung M.D.. I have reviewed the available records,interviewed and examined the patient. I agree with the history, physical examination, and plan as outlined in Dr. Timothy Chung M.D.'s admission note from yesterday. History of Present Illness: Mr. Campbell is a 55 y.o. male who is was recently diagnosed with Malignant Neoplasm Of Pancreas (HCC) and underwent an ERCP for metallic biliary stent placement complicated by post ERCP pancreatitis. He also developed portal vein thrombosis and it was thought that he had infected clot as there was Strept ococcus anginosus bacteremia and he was started on antibiotics form of ceftriaxone. He was also on enoxaparin. He was discharged on ceftriaxone but developed ongoing fevers and chills and then switchedto ertapenem but that did not improve symptoms. Presented to the emergency room with fevers and chills and was admitted for further management. Review of Systems: All other systems reviewed and negative unless mentioned in the history of present illness or problem list. History Review: I reviewed the patient's allergies, current medications, family history, medical history, social history, surgical history and problem list. Objective: Vital Signs: Temperature: [36.3 ??C-37.6 ??C] 36.7 ??C Resp Rate: [16-22] 16 Blood Pressure: (97-111)/(59-95) 97/61 SpO2: [90 %-98 %] 93 % Pulse Rate: [86-116] 108 Physical Exam: General: No acute distress. Psychiatric: Awake, alert and oriented. Rest of the examination is per Dr. Timothy Chung M.D. Assessment/Plan: #1 Malignant Neoplasm Of Pancreas (HCC) #2 Portal Vein Thrombosis #3 Pain Generalized Abdominal #4 Infected pancreatic necrosis #5 Fever With Chill Mr. Campbell is a 55 y.o. male who is admitted with Malignant Neoplasm Of Pancreas (HCC) with post ERCPpancreatitis (ERCP done in late July 2020) and appears to have infected necrosis and also portalvein thrombosis which appears to potentially infected. I reviewed his imaging studies. He had an MRCP done on the 09 of September. MRCP showed slight interval decrease in the peripancreatic fluid collections compared to early August. Primary pancreatic malignancy was not well visualized during this MRCP likely due to the inflammation around.. CT scan obtained yesterday showed extensive necrotizing pancreatic fluid collections with new foci of gas in the fluid collection. Overnight, he was switched to Zosyn. This is a tough situation. His post ERCP pancreatitis and infection will obviously delay his plans for chemotherapy and potential surgery. Plan of care: 1. Will continue antibiotics in the form of Zosyn. We will obtain a consultation with our colleaguesin Infectious Diseases. We will follow blood cultures. 2. We discussed EUS in ERCP guided drainage of the peripancreatic fluid collection. There appears tana organization in the fluid collection and it likely could be amenable to drainage. However, will run this by our colleagues in advanced endoscopy to see what the optimal time of drainage would be. 3. Continue enoxaparin for now and will hold it tomorrow morning in anticipation of procedure tomorrow if available. 4. NPO after midnight for potential procedure tomorrow. The rest of the plan is per Dr. Timothy Chung M.D.'s note from yesterday. [employer] Timothy Chung M.D. - 09/12/2020 7:35 PM CST GI-B ADMISSION HISTORY & PHYSICAL Date/Time: 09/13/2020 4:07 AM P[facility]ING ENFORCER Room: [address] [place] [address] Patient Name: Adam Campbell : 1965 Sex: male Code Status: Full Code CHIEF COMPLAINT Worsening abdominal pain, fevers, chills, night sweats HISTORY OF PRESENT ILLNESS Mr. Adam Campbell is a 55 y.o. male with past medical history significant for pancreatic adenocarcinoma, malignant biliary stenosis s/p stent 07/29 (complicated by post-ERCP pancreatitis) and balloon dilation 08/04, infected non-occlusive portal vein thrombosis complicated by strep anginosus bacteremia who presents with worsening abdominal pain, fevers, chills, night sweats. This patient was diagnosed with biopsy-proven pancreatic adenocarcinoma at an outside hospital in July 2020. He developed severe biliary malignant stricture of his pancreatic duct which required ERCP with uncovered metal stent placed on 07/29 (complicated by post-ERCP pancreatitis) and ERCP with stone removal and biliary duct dilation on 08/04. He was admitted to [facility] from 08/12 through 08/15 for fevers, chills, abdominal pain. He was found to have nonocclusive portal vein thrombosis that was likely infected and strep anginosus bacteremia. GI and ID were consulted that hospitalization. He was treated with enoxaparin (1 mg/kg twice daily) and ceftriaxone (2 g q24h). He was discharged on ceftriaxone but 2 weeks ago developed mild right low back pain that culminated in the last few days to fevers up to 101.3F, few chills, night sweats, and the right low back pain radiating to the right lower quadrant. Therefore he contacted his [place] team and requested labs to be drawn, which showed potential hepatotoxicity while on the ceftriaxone (ALT 215, AST 200, alkaline phosphatase 554). He was therefore switched to ertapenem 1g daily after discussion with Dr. Fuentes on 09/09/20 (see communication encounter). At that time, MRCP showed slight interval decrease in the sizeof peripancreatic fluid collection. Since switching to ertapenem, his symptoms continued to worsen. He continues to have fevers, chills,night sweats, and pain in the right low back/RLQ/LLQ. He therefore presents to the [facility] ED for further evaluation. ED Course Presenting Vitals: Afebrile. HR 116, BP 110/72, RR 22, SpO2 95% on room air Imaging obtained: CT AP reveals complex necrotizing peripancreatic fluid collections with new gas foci highly suspicious for infection, persistent left portal vein thrombus, severe narrowing of the SMV, and unchanged pancreatic uncinate malignancy Notable labs: WBC 12.2, creatinine 0.69, total bilirubin 0.8, ALT 63 (to 15 on 09/09), alkaline phosphatase 356 (554 on 09/09), lactate 1.38, lipase 12. UA WBC 1-3 Medications administered: Ketorolac 15, oxycodone 5, ondansetron 4, 1 L NS Blood cultures were drawn from his PICC and periphery. On arrival to the floor, he injuries the above history and had mild-moderate ongoing right low back and right lower quadrant pain. He denied any current fevers, chills, sweats. REVIEW OF SYSTEMS Negative except per HPI. PAST MEDICAL & SURGICAL HISTORY PAST MEDICAL HISTORY Past Medical History: Diagnosis [...] TRIGGER FINGER RELEASE ??? VASECTOMY N/A Vasectomy SOCIAL HISTORY Social History Socioeconomic History ??? Marital status: Spouse name: Shaniqua ??? Number of children: 2 ??? Years of education: None ??? Highest education level: 11th grade Occupational History ??? 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 Financial [...] times a week Gets together: Never Attends church service: Never Active member of club or organization: No Attends meetings of clubs or organizations: Never Relationship status: ??? Intimate partner violence Fear of current or ex partner: None Emotionally abused: None Physically abused: None Forced sexual activity: None Other Topics Concern ??? None Social History Narrative ??? None Home and Family: Lives at home with in [facility]. Has 2 adult daughters and 3 grandchildren. 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 Functioning/ADLs/Meds: Independent FAMILY HISTORY Family History Problem Relation Age of Onset ??? Lung cancer Maternal Grandmother HOME MEDICATIONS No current outpatient medications on file. PHYSICAL EXAM VITAL SIGNS ON ADMISSION Temperature: [36.3 ??C-37.6 ??C] 37.6 ??C Resp Rate: [20-22] 20 Blood Pressure: (100-111)/(59-95) 104/59 SpO2: [90 %-98 %] 90 % Pulse Rate: [86-116] 106 General: Awake, alert, oriented. Sitting comfortably in bed. Cooperative, in no acute distress. Eyes: Clear, non-injected, slight icteric sclera. ENT: MMM. Cardiac: Regular rate and rhythm. S1, S2 present. No rubs, murmurs, gallops. Lungs: Breathing comfortably on room air. Clear to auscultation bilaterally. No wheezes, rales, rhonchi. Abdomen: Normoactive bowel sounds. Soft, non-distended, moderate tenderness to palpation over the right and left lower quadrants. No guarding or rebound tenderness. Back: Mild right low tenderness to palpation. Groin: Minimal tenderness to palpation over the bilateral testes and epididymides. No palpable or visible hernia while in bed. Extremities: Warm and well-perfused UE and LE. No lower extremity edema. Skin: No rashes. Neuro: Alert, oriented x 3. Psych: Appropriate mood and affect. DIAGNOSTIC STUDIES THUS FAR LABS Recent Labs 09/12/20 1851 09/12/20 1702 09/12/20 1542 WBC -- -- 12.2 H HGB -- -- 10.5 L PLT -- -- 356 H NA -- -- 131 L CL -- -- 94 L BUN -- -- 13 CREATININE -- -- 0.69 L CALCIUM -- -- 9.0 ALBUMIN -- 3.4 L -- BILITOT -- 0.8 -- AST 29 CANCELED -- ALT -- 63 H -- ALKPHOS -- 356 H -- IMAGING Ct Abdomen Pelvis With Iv Contrast Result Date: 09/12/2020 Impression: 1. Extensive necrotizing peripancreatic fluid collections appear similar in size to the MRI from 09/09/2020. New foci of gas within the collections are highly suspicious for infection. 2. 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 3. Known pancreatic uncinate marcial gnancy appears unchanged. 4. Indeterminate hypoenhancing region in the inferior right liver. Mr Abdomen Mrcp Without And With Iv Contrast Result Date: 09/09/2020 Impression: 1. Slight interval decrease size of the peripancreatic fluid collections as compared to 08/18/2020. The primary pancreatic malignancy is not well visualized. Non dilated pancreatic duct, however there is non visualization of the duct at the level of the pancreatic body. ASSESSMENT AND PLAN #1 Malignant Neoplasm Of Pancreas (HCC) #2 Portal Vein Thrombosis #3 Pain Generalized Abdominal #4 Pseudocyst Pancreas (HCC) #5 Fever With Chill Mr. Adam Campbell is a 55 y.o. male with past medical history significant for pancreatic adenocarcinoma, malignant biliary stenosis s/p stent 07/29 (complicated by post-ERCP pancreatitis) and balloon dilation 08/04, infected non-occlusive portal vein thrombosis complicated by strep anginosus bacteremia who presents with worsening abdominal pain, fevers, chills, night sweats. His presentation is concerning for infected SMV thrombus and infected peripancreatic fluid. This hasbeen despite ceftriaxone and more recently ertapenem. His blood cultures from prior hospitalization have only grown manuel- susceptible Streptococcus anginosus. Given his clinical progression on what appears to be appropriate antibiotic therapy, we will broaden to piperacillin- tazobactam empirically to cover most GI randy. ID has been consulted and we will follow his pending cultures. Unfortunately, I updated him that this infection has continued to delay his neoadjuvant chemotherapy and potential surgical resection. PLAN FOR TONIGHT: 1. Broaden to piperacillin-tazobactam 2. ID consult 3. NPO for potential procedure if fluid collections able to be drained #1 Concern for infected peripancreatic fluid #2 Concern for infected non-occlusive portal vein thrombus #3 Fevers, chills, night sweats #4 Abdominal pain #5 Pancreatic adenocarcinoma of the uncinate process #6 Malignant biliary stenosis s/p stent 07/29 (complicated by post-ERCP pancreatitis) and balloon dilation 08/04 - piperacillin-tazobactam - Follow blood cultures - ID consulted - continue enoxaparin 80 bid # GERD - continue pantoprazole, simethicone/gas-X p.r.n. F: IV and PO E: Monitor and replete as needed N: NPO DVT prophylaxis: Therapeutic enoxaparin Code Status: Full Code Dispo: admit to GI-B Electronic Signature: Timothy Chung M.D. Internal Medicine Resident, PGY-2 09/13/2020 4:07 AM PARKING ENFORCER ING ENFORCER documented in this encounter Consult Notes Caroline Christianson L.G.S.W., M.S.W. - 09/13/2020 2:15 PM CSTAssociated Order(s): IP CONSULT TO CARE MANAGEMENT; IP CONSULT TO CARE MANAGEMENT Psychosocial Assessment SUBJECTIVE DEMOGRAPHIC INFORMATION Referral Source: Service/Provider Referral Reason: Psychosocial Assessment and Discharge Planning for continued IV antibiotics Person(s) present during interview: Patient Previous Psychosocial Assessment : NA Primary care clinic and provider: [facility] / Lewis Arce MD They were advised of the various topics that will be assessed during this evaluation. They consentedto proceed. The information provided in the assessment is based on review of the medical record as well as the interview. They were advised that the content of this interview will be shared with the health care team. It was discussed that staff are mandated reporters and they reported understanding. HISTORY OF PRESENT ILLNESS Patient was diagnoses with pancreatic cancer in July as well as a pancreas infection. He is on IV antibiotics through 09/24/2020. He came in due to flank pain and a fever; he will be on IV ABX for longer. He cannot start cancer treatments until after his infection has cleared. 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 ENVIRONMENTAL SUPPORTS Current Living Situation: Lives in a home with his and their dog - Handicap accessible home Anticipated modifications to the patient's home environment: None FUNCTIONAL STATUS (ADL's and IADL's) Dressing: independent Feeding: independent Bathing: independent Grooming: independent Toileting: independent Transfer to/from Bed, Chair, Etc.: independent Mobility: independent Meal Prep: independent Medication Setup/Administration: independent Telephone Use: independent Housekeeping: dependent Shopping: independent Managing Finances: independent It is anticipated that the patient will need assistance with bathing, meal preparation, housekeepingand shopping ASSISTIVE DEVICES Patient has the following equipment: cane, grab bars - toilet, grab bars - wall, handrails for stairs, ramp, toilet riser, tub/shower chair/bench, walker - front wheeled and wheelchair - manual Patient anticipates potentially needing the following additional equipment: none Transportation needs: independent to drive and support from family/friends FORMAL AND INFORMAL RESOURCES Patient reports strong family support from his mother, 's family, daughters, and grandkids. He mentions close friendships as well as housekeeping assistance from his 's BICYCLE DESIGNER. They have a yorkie dog. FINANCES/INSURANCE Primary insurance: [facility] Secondary insurance: N/A Financial concerns: No ADVANCE DIRECTIVES NA OBJECTIVE Suicide Risk and Safety Risk Assessment: Suicidal: Patient denies, Low Risk Homicidal: Patient denies, Low Risk Current Stressors Continued illness, new cancer diagnosis, recent loss of sister in law Coping Skills/Strengths Family, pet, motivation ASSESSMENT / PLAN DISCUSSION Met with the patient in her hospital room to complete a comprehensive assessment, to offer supportive counseling, and to review the role of social work in the medical setting. Patient presented with a fever and flank pain; he was recently in the hospital in July 2020 and diagnosed with pancreatic c ancer and pancreas infection. He notes being on IV antibiotics until 09/24/2020 but that it will be much longer now. He will start cancer treatments once the infection is clear. He notes no mental health history and no concerns at this time. He shares that he has been feeling down the past couple days due to his sister in law's on 09/09/2020. He notes a favorite hobby being building model cars. He lives in a very handicap accessible home with his and dog. He notes close relationships withdaughters, grandkids, 's family, mother, and friends. They have a BICYCLE DESIGNER for his (she has MS) and the BICYCLE DESIGNER assists with housekeeping, meals, and 's needs. They have many assistive devices inclu ding wheelchair, walker, and accessible bathroom. He anticipates discharging home with his and continue his IV antibiotics with [facility] and his line care/blood draws with [facility]. He confirms liking their services and not wanting any other options at this time. Reviewed that social work is available to provide ongoing support and assistance with dismissal planning as needed. The patient reports no concerns at this time. Encouraged the patient (or his family) to reach out to social work with any questionsor concerns that may arise. IMPRESSION Patient is lying in bed and watching TV; he is alert and oriented x3. He appears to be struggling with the recent loss of his sister in law but is copping appropriately. He denied wanting any resourceson coping. He has great support and insight into his condition and needs. INTERVENTIONS -Solution-focused supportive counseling, reflective listening -Comprehensive psycho-social assessment -Reviewed the role of social work in the medical setting -Building of the therapeutic relationship PLAN -Patient anticipates discharging home with family support -Reconnect with [facility] for IV antibiotics pending -Reconnect with [facility] for [facility](site care, blood draws) pending -Social work will continue to provide ongoing supports and assist with the dismissal planning as needed Anticipated barriers to the transition of care/plan: None Timmy Tarango, M.S.W. 09/13/2020 ING ENFORCER Tashi Jansen M.D. - 09/13/2020 7:08 AM CSTAssociated Order(s): IP CONSULT TO INFECTIOUS DISEASES Infectious Diseases [facility] Consulting Service Consult Note SUBJECTIVE REASON FOR CONSULT We are seeing Mr. Campbell at the request of Yousif Brantley M.D. to give further recommendations forevaluation and management of Recurrent fevers on ertapenem/ceftriaxone, suspected infected PV thrombosis and peripancreatic fluid. HISTORY OF PRESENT ILLNESS Mr. Campbell is a 55-year-old man who presented with worsening abdominal pain, fevers chills, and nightsweats - he was admitted to the GI service. 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 He was recently in the hospital from 08/12-08/15 for fevers, chills, abdominal pain which is whenthey found the portal vein thrombosis. GI and ID were consulted and he was treated with enoxaparin and ceftriaxone for the infected clot. Over the past couple of weeks has developed right lower back pain and over the last couple of days developed fever up to 101.3, chills, night sweats, radiation of the lower back pain to the right lowerabdominal quadrant. Labs recently showed transaminitis in the outpatient setting with ALT of 215, AST of 200, alk- phos of 554 which time he was switched to ertapenem due to concern of ceftriaxone toxicity - blood cultures were drawn at that time in [place] and were negative. On arrival he was vitally stable but repeat CT abdomen pelvis revealed a complex necrotizing peripancreatic fluid collectionwith new gas foci suspicious for infection, the persistent left portal vein thrombus, severe narrowing of the SMV, and unchanged pancreatic uncinate malignancy. Transaminitis showed some improvement with ALT 63, AST 29, alk-phos 356. Patient has been on zosyn since arrival to the hospital. I saw the patient when GI was rounding this morning. Patient says that his primary concern is the abdominal pain which is now diffuse and infection control - he is concerned that we will not give adequate control of the infection in the setting of his cancer. GI was in the room and explained that theywould try a procedure tomorrow to try to drain the new abdominal abscess. Patient was in agreement with this. No additional concerns to report. The following portions of the patient's history were reviewed and updated as appropriate: allergies,medical history, problem list, current medications, social history, family history and surgical history Constitutional: Positive for fever. Gastrointestinal: Positive for abdominal (belly) pain or cramping. Musculoskeletal: Positive for back pain. The following systems were negative: Skin, Eyes, ENT, CV, Respiratory, , Hematologic, Neuro, Psych OBJECTIVE PHYSICAL EXAMINATION Vital Signs: I have reviewed the current vital sign data as applicable. Constitutional General: He is not in acute distress. Appearance: Normal appearance. He is not ill-appearing. HENT Head: Normocephalic and atraumatic. Mouth/Throat: Mouth: Mucous membranes are moist. Eyes Extraocular Movements: Extraocular movements intact. Conjunctiva/sclera: Conjunctivae normal. Pupils: Pupils are equal, round, and reactive to light. Cardiovascular Pulses: Normal pulses. Heart sounds: Normal heart sounds. Pulmonary Effort: Pulmonary effort is normal. Breath sounds: Normal breath sounds. Abdominal General: Abdomen is flat. Palpations: Abdomen is soft. Tenderness: There is abdominal tenderness. Comments: Tenderness is diffuse Skin General: Skin is warm and dry. Neurological General: No focal deficit present. Mental Status: He is alert. DIAGNOSTICS: I have reviewed diagnostics. Studies of note include: Blood cultures in process, no growth to date. Hgb 10.5 -> 9.2 WBC 12.2 -> 11.1 with neutrophil predominance Na 132 Bilirubin Direct 0.4 ALT 63 -> 40 AST 29 -> 14 Alk Phos 356 -> 253 Lipase 12 Urinalysis: Largely unremarkable, mild proteinuria CT Abdomen Pelvis IMPRESSION: 1. Extensive necrotizing peripancreatic fluid collections appear similar in size to the MRI from 09/09/2020. New foci of gas within the collections are highly suspicious for infection. 2. 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 3. Known pancreatic uncinate malignancy appears unchanged. 4. Indeterminate hypoenhancing region in the inferior right liver. ASSESSMENT / PLAN #1 Malignant Neoplasm Of Pancreas (HCC) #2 Portal Vein Thrombosis #3 Pain Generalized Abdominal #4 Pseudocyst Pancreas (HCC) #5 Fever With Chill Mr. Campbell is a 55-year-old man who presented with worsening abdominal pain, fevers, chills, and night sweats in the setting of pancreatic adenocarcinoma. This has been complicated by malignant biliary stenosis with stent placement 07/29 and post ERCP pancreatitis requiring balloon dilatation on 08/04.Even more recently he was found to have an infected portal vein thrombus for which he has been on anticoagulation and antibiotics in the outpatient setting. Prior cultures were positive for pansensitive strep anginosus and he received ceftriaxone until more recent elevation of LFTs which prompted a switch ertapenem. Since then LFTs have been downtrending. Workup this admission is significant for a new peripancreatic abscess with air concerning for a necrotizing infection. GI is planning to drain thefluid collection tomorrow 09/14/20. He remains stable on zosyn which is appropriate while inpatient. More than likely this collection is polymicrobial for which this is a good choice. Should he show signs of clinical deterioration we should broaden to include antifungals. Cause of back pain is slightly concerning though no sign of infection on the CT abdomen/pelvis on review- I did call radiology and on re- review they did not seen anything concerning for mets or infection. See the plan below. RECOMMENDATIONS: 1. Continue zosyn 3.375 g IV q 6 hours 2. Should he show signs of worsening infection can add caspofungin 70 mg once then 50 mg q24h. Please notify us if this is the case 3. If back pain worsens consider spine MRI We will follow along closely. Please page the [facility] service pager at [phone] withquestions. Thank you for the consultation. Tashi Jansen M.D. ING ENFORCER Norris Fuentes M.B.BRiazS. - 09/13/2020 6:06 AM CST This is a supervisory consult note. Please refer to the associated consult note for full details andrecommendations, I interviewed the patient myself, repeated the patel component of the history and physical examination, reviewed the relevant clinical, radiological, microbiological data. History of presenting illness: Patient is a 55-year-old male, history of pancreatic adenocarcinoma status post common bile duct stenting repeated ERCPs complicated by post ERCP pancreatitis, who was seen by the general ID service during his earlier hospitalization in the 1st week of August when he was found to have Streptococcus anginosus bloodstream infection likely complicated by infected left main portal vein thrombus, we recommended 6 weeks of IV ceftriaxone through September 24. On September 09 he underwent an MRCP that showed decrease in the size of peripancreatic fluid collections, stable thrombus in the left portal vein, no significant intrahepatic biliary duct dilatation, however on that day it was noted that his LFTswere increasing, there was a concern for medication induced liver injury, so he was transitioned from ceftriaxone to ertapenem, and he was recommended to get blood cultures. Yesterday he presented to the hospital with intermittent fevers and abdominal and back pain. Upon presentation is CT was performed, and that showed extensive necrotizing peripancreatic fluid collections which appears similar in size however now there is new foci of gas within the collection concerning for infection, persistent left portal vein thrombus and severe narrowing. Patient was noted to have mild leukocytosis, have beenafebrile, blood cultures were obtained, and he was started on Zosyn. #1 Fevers secondary to Likely infected peripancreatic necrotizing fluid collections, lacking source control #2 Recent diagnosis of Streptococcus anginosus pylephlebitis on week 5/6 antimicrobial therapy #3 Pancreatic adenocarcinoma, treatment naive #4 Abnormal LFTs #5 Right-sided paraspinal low back pain Recommendations: 1. The most likely etiology for his ongoing reported fevers would be his infected peripancreatic necrotizing fluid collection, for that we will need every possible attempt for source control to accelerate the control this process and allow for the initiation of his cancer directed therapy. The currentplan is to proceed with EUS-ERCP for drain placement and microbiological studies. 2. Continue Zosyn for the time being, we have contacted the clinic in [place] with the patient had blood cultures from peripheral site and the PICC line on September 09 in these are negative to date 3. If the patient were to decompensate, we advocate for addition of anti fungal therapy, with his altered LFTs we could utilize anidulafungin. Otherwise, we could hold on the initiation until we have some micro data 4. We reviewed the CT abdomen data with Radiology, that does not appear to be any paraspinal extension of the infection, however if the pain was to change in nature, will proceed with lumbar spine MRI 5. We will continue to follow and provide recommendations as needed. ING ENFORCER documented in this encounter Nursing Notes Jorge Luis Amaya R.N. - 09/15/2020 3:17 PM CST Patient discharged to home with home health care and home IV infusions. Report called to [facility] and [facility]. Patient was discharged after having received his daily dose of ertapenem I the hospital. Had previously been on same antibiotic prior to hospitalization. PIV removed. AVS reviewed with patient and all questions answered. Discharged via escort to west doors with picking patient up. ING ENFORCER Antonella Shipley R.N. - 09/14/2020 6:37 PM CST Shift Goals: Clinical Goals for the Shift: patient will remain fever free, tolerate procedure with minimal pain, Rate pain at or below 5/10, tolerate a diet after procedure Identify possible barriers to meeting goals/advancing plan of care: none End of Shift Summary: Patient was afebrile today. Patient states that he tends to get his fevers in the evening/night. He has had gas pain today which he was taking oxy for. He does not want to take the oxy because he can get constipated from the narcotics. He was concerned about not having a BM today. He increased his volume of water intake and asked for a mineral water enema, which was instilled [id number]. Awaiting results. Problem: PAIN - ADULT Goal: PT VERBALIZES/DEMONSTRATES [...] remains free from fall/fall injury Outcome: Progressing ING ENFORCER documented in this encounter ED Notes Pj Dixon M.D., M.P.H. - 09/12/2020 4:58 PM CST I have personally seen and examined this patient. I have fully participated in the care of this patient. I have reviewed all clinical information including history, physical exam, orders, and plan. I agree with the note of the resident. IMPRESSION AND PLAN This patient is a very pleasant 55-year-old gentleman who has pancreatic cancer that is not resectable. He has had a biliary stent in place that got obstructed and replaced with a bare metal stent. After his ERCP he developed necrotizing pancreatitis and fevers and has also had bacteremia where he initially was on ceftriaxone then changed to ertapenem for spiking fevers. He has been under dependence since 09/07. He reports that he is getting progressively worse abdominal pain that also radiates to his flanks bilaterally. He has continued to spike fevers to 101?? F despite the antibiotic change. He denies sore throat, shortness of breath, cough. He does acknowledge pain with initiation of urinationbut has no urinary frequency. He has no skin rashes. On exam he is awake alert and oriented. His neck is supple. His heart is regular. The abdomen is soft and nondistended with diffuse tenderness to palpation. He does have bilateral CVA tenderness. Will obtain labs (lactate normal at 1.38), urine studies as well as CT abdomen pelvis to evaluate for progression and changes/abscess formation etc.. I anticipate that this patient will need admission for further care I reviewed previous medical records including Lab results, Radiology images/report and Documentationfrom previous visits. Final Diagnoses: as of Sep 13 0122 Pain Generalized Abdominal Pj Dixon M.D., M.P.H. 09/13/20 0123 Pj Dixon M.D., M.P.H. 09/21/20 1002 ING ENFORCER Kalin Flynn M.D. - 09/12/2020 3:40 PM CST SUBJECTIVE CHIEF COMPLAINT/REASON FOR VISIT Flank Pain HISTORY OF PRESENT ILLNESS patient is a very pleasant 55-year-old male diagnosed with pancreatic adenocarcinoma July 2020,progressive necrotizing pancreatic necrosis, status post biliary stent, discharged on August 15 for treatment of post ERCP pancreatitis. At present he is not a candidate for resection. And is thought not to be safe to begin chemotherapy at this point time. Three days ago patient underwent MR abdomen MRCP which revealed slight decrease in the size of extensive peripancreatic fluid collections extending into the retroperitoneal and around the stomach. Patient has a PICC line in place. He is receiving 6 weeks of IV ceftriaxone to treat Streptococcus anginosus bacteremia complicated by likely infected portal vein thrombosis. On 09 of September his ceftriaxone was transition to ertapenem. Patient presents to the emergency department today with flank pain. He developed a fever 2 days ago.He reports gradual loss of appetite. Reports last bowel movement was yesterday consisted of small hard ground pelvis. He does take daily senna and MiraLax. Patient takes 5 mg oxycodone at bedtime it and 3:00 a.m.. Last took Tylenol at 3:00 a.m. as well. REVIEW OF SYSTEMS Constitutional: Negative for fever. HENT: Negative for rhinorrhea. Eyes: Negative for visual disturbance. Respiratory: Negative for shortness of breath. Cardiovascular: Negative for chest pain. Gastrointestinal: Positive for constipation. Negative for abdominal pain. Genitourinary: Negative for dysuria. Musculoskeletal: Negative for back pain. Skin: Negative for rash. Neurological: Negative for syncope. Psychiatric/Behavioral: Negative for confusion. OBJECTIVE Initial Vitals [09/12/20 1519] Temperature Pulse Rate Heart Rate Resp Rate Blood Pressure SpO2 36.8 ??C (!) 116 -- 22 110/72 95 % Pain Score -- PHYSICAL EXAMINATION Constitutional: No distress. HENT: Head: Normocephalic and atraumatic. Nose: No nasal discharge. Mouth/Throat: Oropharynx is clear and moist. Mucous membranes are moist. Eyes: Conjunctivae and EOM are normal. Pupils are equal, round, and reactive to light. Neck: Normal range of motion. Cardiovascular: Normal heart sounds. Tachycardia present. Capillary refill: takes less than 3 seconds, Pulmonary/Chest: Breath sounds normal. No tachypnea. Abdominal: Soft. He exhibits no distension. There is abdominal tenderness. There is no guarding. Diffuse mild to moderate abdominal tenderness. Musculoskeletal: No tenderness. Neurological: He is alert and oriented to person, place, and time. Skin: Skin is warm and dry. No rash noted. Psychiatric: He has a normal mood and affect. ASSESSMENT/PLAN Patient is a very pleasant 55-year-old male with recent diagnosis of necrotizing pancreatitis in thesetting of pancreatic cancer status post biliary stenting. He has a PICC line in place through whichshe receives ertapenem. Is presenting today with decreased interest in food, night sweats, abdominalpain and flank pain. He is deemed not to be a surgical candidate at present and is receiving no radiation or chemotherapy treatment. Differential diagnosis includes hepatitis, pancreatitis, abdominal abscess, sepsis, bacteremia, COVID, urinary tract infection among others. Will obtain COVID swab, CBC, BMP, abdominal function panel, urinalysis, blood cultures, and CT abdomen pelvis. Will provide ketorolac, Zofran, fluid rehydration and oxycodone for discomfort. Patient was found to have extensive necrotizing jackelin pancreatic fluid collection, unchanged in size since September 09 but now with new a gas collections. This is concerning for worsening infection. Current antibiotic coverage appears appropriate. Patient will be admitted for IV rehydration, IV antibiotics and consideration for source control. ED Course as of Sep 13 1546 Sat Sep 12, 2020 1732 COVID negative SARS CoV-2, PCR, Rapid, V: Undetected 1840 Down trending Hepatic Function Panel(!): Bilirubin, Total, S 0.8 Bilirubin, Direct, S CANCELED Aspartate Aminotransferase (AST), S CANCELED Alanine Aminotransferase (ALT), S 63(!) Alkaline Phosphatase, S 356(!) Albumin, S 3.4(!) Protein, Total, S 7.0 1841 1. Extensive necrotizing peripancreatic fluid collections appear similar in size to the MRI from 09/09/2020. New foci of gas within the collections are highly suspicious for infection. 2. 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 3. Known pancreatic uncinate malignancy appears unchanged. 4. Indeterminate hypoenhancing region in the inferior right liver. CT Abdomen Pelvis with IV Contrast Final Diagnoses: as of Sep 13 1546 Pain Generalized Abdominal Kalin Flynn M.D. Resident 09/13/20 1631 ING ENFORCER Norma Dhillon R.N. - 09/12/2020 3:16 PM CST Patient has known pancreatitis and does have a PICC in place. Patient noticed a few weeks ago right side flank pain. Patient has noticed fevers that started on . Patient has been in contact with infectious disease and his antibiotics have been changed. Patient's pain is worsening and continuesto have a fever. Norma Dhillon R.N. 09/12/20 1520 ING ENFORCER documented in this encounter Miscellaneous Notes Hospital Course - Jesse Ramirez M.D. - 09/13/2020 4:20 AM CST Mr. Adam Campbell is a 55 y.o. 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 In the [facility] ED, he was afebrile, tachycardic to 116, and normotensive. Labs showed WBC 12.2, total bilirubin 0.8, ALT 63 (215 on 09/09), alkaline phosphatase 356 (554 on 09/09), lactate 1.38, blood cultures drawn. CT AP revealed complex necrotizing peripancreatic fluid collections with new gas foci highly suspicious for infection, persistent left portal vein thrombus, severe narrowing of the SMV, and unchanged pancreatic uncinate malignancy. He was admitted to the GI-B service for further management,where antibiotic coverage was broadened to Zosyn. His imaging was reviewed by ERCP/EUS specialists, who felt that the loculated fluid collections were not mature enough for cystgastrostomy and drainage. ID was re-consulted and recommend switching to ertapenem on discharge. He was discharged in stable condition on 09/15/20 with plans to undergo weekly CT AP with contrast to reassess optimal timing of cystgastrostomy and drainage. Outpatient follow-up with ID and oncology was also arranged. ING ENFORCER documented in this encounter Plan of Treatment Upcoming Encounters Date Type Specialty Care Team Description 06/22/2022 Lab Laboratory Medicine Maria Del Rosario Gomez AP RN, C.N.P., M.S. [address] [place] [address] [phone] (Wo rk) 06/22/2022 Infusion Oncology Maria Del Rosario Gomez APRN, C.N .P., M.S. [address] [place] [address] [phone] (Wo rk) 06/29/2022 Lab Laboratory Medicine Maria Del Rosario Gomez AP RN, C.N.P., M.S. [address] [place], [place] [phone] (Wo rk) 06/29/2022 Infusion Oncology Maria Del Rosario Gomez APRN, C.N .P., M.S. [address] [place], [place] [phone] (Wo rk) Scheduled Referrals Name Type Priority Associated Diagnoses Order S [facility] Outpatient Routine Bacteremia Ordered: Health Referral Referral Pancreatitis Post Endosco pic 09/15/2020 Retrograde Cholangiopancreatography (HC C) documented as of this encounter Procedures Procedure Name Priority Date/Time Associated Comments Diagnosis CBC WITHOUT Routine 09/14/2020 8:15 Results for DIFFERENTIAL, B PM PARKING ENFORCER this procedu re are in the results section. COMPREHENSIVE METABOLIC Routine 09/14/2020 8:15 R esults for PANEL, S/P PM PARKING ENFORCER this procedure are in the results section. PROTHROMBIN TIME (PT), Routine 09/14/2020 6:04 Re sults for P AM PARKING ENFORCER this procedure are in the results section. CBC WITHOUT Routine 09/14/2020 6:04 Results for DIFFERENTIAL, B AM PARKING ENFORCER this procedu re are in the results section. COMPREHENSIVE METABOLIC Routine 09/14/2020 6:04 R esults for PANEL, S/P AM PARKING ENFORCER this procedure are in the results section. HEPATIC FUNCTION PANEL, Routine 09/13/2020 6:10 R esults for S AM PARKING ENFORCER this procedure are in the results section. CBC WITH DIFFERENTIAL, Routine 09/13/2020 6:10 Re sults for B AM PARKING ENFORCER this procedure are in the results section. BASIC METABOLIC PANEL, Routine 09/13/2020 6:10 Re sults for S/P AM PARKING ENFORCER this procedure are in the results section. ASPARTATE STAT 09/12/2020 6:51 Results for AMINOTRANSFERASE (AST), PM PARKING ENFORCER this procedure S/P are in the results section. LACTATE, B/P Timed 09/12/2020 6:51 Results for PM PARKING ENFORCER this procedure are in the results section. BILIRUBIN DIRECT, S/P STAT 09/12/2020 6:51 Res ults for PM PARKING ENFORCER this procedure are in the results section. HC URINALYSIS AUTO WO Routine 09/12/2020 6:08 Res ults for MICRO PM PARKING ENFORCER this procedure are in the results section. MICROSCOPIC MANUAL STAT 09/12/2020 6:04 Result s for PM PARKING ENFORCER this procedure are in the results section. BACTERIAL CULTURE, STAT 09/12/2020 6:04 Result s for AEROBIC + SUSC, URINE PM PARKING ENFORCER this p rocedure are in the results section. URINALYSIS WITH STAT 09/12/2020 6:04 Results f or MICROSCOPIC PM PARKING ENFORCER this procedure are in the results section. CT ABDOMEN PELVIS WITH RAD - Semiurgent 09/12/2020 5:25 Results for IV CONTRAST (Fast; most ED PM PARKING ENFORCER this procedur e patients; some are in the inpatients) results section. BACTERIA / BRIGID STAT 09/12/2020 5:03 Result s for CULTURE, BLOOD PM PARKING ENFORCER this procedur e are in the results section. HEPATIC FUNCTION PANEL, STAT 09/12/2020 5:02 R esults for S PM PARKING ENFORCER this procedure are in the results section. LACTATE, POCT, B STAT 09/12/2020 5:02 Results for PM PARKING ENFORCER this procedure are in the results section. LIPASE, S/P STAT 09/12/2020 5:02 Results for PM PARKING ENFORCER this procedure are in the results section. LACTATE, POCT, B Routine 09/12/2020 5:00 Results for PM PARKING ENFORCER this procedure are in the results section. BACTERIA / BRIGID STAT 09/12/2020 4:44 Result s for CULTURE, BLOOD PM PARKING ENFORCER this procedur e are in the results section. IFLU A, B, SARS COV-2, STAT 09/12/2020 4:27 Re sults for PCR, RAPID,V PM PARKING ENFORCER this procedure are in the results section. CBC WITHOUT STAT 09/12/2020 3:42 Results for DIFFERENTIAL, B PM PARKING ENFORCER this procedu re are in the results section. BASIC METABOLIC PANEL, STAT 09/12/2020 3:42 Re sults for S/P PM PARKING ENFORCER this procedure are in the results section. documented in this encounter Results CT Abdomen Pelvis with IV Contrast (09/22/2020 4:00 PM PARKING ENFORCER) Anatomical Region Laterality Modality Abdomen, Pelvis, Abdominal RST LOS, N/A Comp uted Tomography, Computed Abdominal ARZ LOS, Abdominal FLA LOS Dileep ography Specimen (Source) Anatomical Collection Method Collection Time Re ceived Time Location / / Volume Laterality 09/22/2020 6:55 PM PARKING ENFORCER Impressions 09/22/2020 7:19 PM PARKING ENFORCER 1. Slight interval increase in the known pancreatic uncinate malignancy. 2. Extensive fluid associate dean of women d with necrotizing pancreatitis has shown a [...] for metastatic disease. Narrative 09/22/2020 7:19 PM PARKING ENFORCER EXAM: ??CT ABDOMEN PELVIS WITH IV CONTRAST [...] pancreatic uncinate malignancy. 2. Extensive fluid associate dean of women d with necrotizing pancreatitis has shown a [...] evidence for metastatic disease. Ernesto Curiel M.D. IMG CT PROCEDURES (ABNORMAL) CBC without Differential (09/14/2020 8:15 PM PARKING ENFORCER) Patholo gist Method Time Signature Hemoglobin 9.4 (L) 13.2 - 09/14/2020 DTL 16.6 g/dL 9:10 PM PARKING ENFORCER Hematocrit 29.5 (L) 38.3 - 09/14/2020 DTL 48.6 % 9:10 PM PARKING ENFORCER Erythrocytes 3.57 (L) 4.35 - 09/14/2020 DTL 5.65 9:10 PM PARKING ENFORCER x10(12)/L MCV 82.6 78.2 - 09/14/2020 DTL 97.9 fL 9:10 PM PARKING ENFORCER RBC Distrib Width 13.2 11.8 - 09/14/2020 DTL 14.5 % 9:10 PM PARKING ENFORCER Platelet Count 346 (H) 135 - 317 09/14/2020 DTL x10(9)/L 9:10 PM PARKING ENFORCER Leukocytes 13.7 (H) 3.4 - 9.6 09/14/2020 DTL x10(9)/L 9:10 PM PARKING ENFORCER Specimen Anatomical Collection Method Collection Time Receive d Time (Source) Location / / Volume Laterality Blood (Blood, 09/14/2020 8:15 PM 09/14/19 21 9:04 Venous) PARKING ENFORCER PM PARKING ENFORCER Eber Zimmerman M.D. LAB BLOOD ADD-ON Performing Organization Address City/State/ZIP Code Phon e Number [facility] - [address] [place], [place] [address] [facility] [place] [address] [facility] [address] (ABNORMAL) Comprehensive Metabolic Panel (09/14/2020 8:15 PM PARKING ENFORCER) P athologist Signature Potassium, S 4.0 3.6 - 5.2 09/14/2020 DTL mmol/L 9:37 PM PARKING ENFORCER Sodium, S 133 (L) 135 - 145 09/14/2020 DTL mmol/L 9:37 PM PARKING ENFORCER Chloride, S 96 (L) 98 - 107 09/14/2020 DTL mmol/L 9:37 PM PARKING ENFORCER Bicarbonate, S 26 22 - 29 09/14/2020 DTL mmol/L 9:37 PM PARKING ENFORCER Anion Gap 11 7 - 15 09/14/2020 DTL 9:37 PM PARKING ENFORCER BUN (Blood Urea 8 8 - 24 09/14/2020 DTL Nitrogen), S mg/dL 9:37 PM PARKING ENFORCER Creatinine 1.03 0.74 - 09/14/2020 DTL 1.35 mg/dL 9:37 PM PARKING ENFORCER eGFR-Non 81 >=60 09/14/2020 DTL Black/ mL/min/BSA 9:37 PM PARKING ENFORCER Ghanaian Comment: ----ADDITIONAL INFORMATION---- Estimated GFR calculated using the 2009 CKD_EPI creatinine equation. eGFR-Black/ >90 >=60 mL/min/BSA 2020 9:37 PM PARKING ENFORCER DTL Comment: ----ADDITIONAL INFORMATION---- Estimated GFR calculated using the 2009 CKD_EPI creatinine equation. Calcium, Total, S 8.1 (L) 8.6 - 10.0 mg/dL 09/14/2020 9:37 PM PARKING ENFORCER DTL Glucose, S 114 70 - 140 mg/dL 09/14/2020 9:37 PM PARKING ENFORCER D TL Protein, Total, S 5.9 (L) 6.3 - 7.9 g/dL 09/14/2020 9:37 P M PARKING ENFORCER DTL Albumin, S 2.9 (L) 3.5 - 5.0 g/dL 09/14/2020 9:37 PM PARKING ENFORCER D TL Aspartate Aminotransferase 37 8 - 48 U/L 09/14/2020 9 :37 PM PARKING ENFORCER DTL (AST), S Alkaline Phosphatase, S 371 (H) 40 - 129 U/L 09/14/2020 9: 37 PM PARKING ENFORCER DTL Alanine Aminotransferase 68 (H) 7 - 55 U/L 09/14/2020 9:3 7 PM PARKING ENFORCER DTL (ALT), S Bilirubin, Total, S 0.6 <=1.2 mg/dL 09/14/2020 9:37 PM PARKING ENFORCER DTL Specimen Anatomical Collection Method Collection Time Receive d Time (Source) Location / / Volume Laterality Blood (Blood, 09/14/2020 8:15 PM 01/04/20 21 9:04 Venous) PARKING ENFORCER PM PARKING ENFORCER Eber Zimmerman M.D. LAB BLOOD ADD-ON Performing Organization Address City/[facility] Phon e Number [facility] - [address] DTL [address] (ABNORMAL) CBC without Differential (09/14/2020 6:04 AM PARKING ENFORCER) [facility] Method Time Signature Hemoglobin 9.2 (L) 13.2 - 09/14/2020 DTL 16.6 g/dL 6:39 AM PARKING ENFORCER Hematocrit 28.9 (L) 38.3 - 09/14/2020 DTL 48.6 % 6:39 AM PARKING ENFORCER Erythrocytes 3.50 (L) 4.35 - 09/14/2020 DTL 5.65 6:39 AM PARKING ENFORCER x10(12)/L MCV 82.6 78.2 - 09/14/2020 DTL 97.9 fL 6:39 AM PARKING ENFORCER RBC Distrib Width 13.2 11.8 - 09/14/2020 DTL 14.5 % 6:39 AM PARKING ENFORCER Platelet Count 304 135 - 317 09/14/2020 DTL x10(9)/L 6:39 AM PARKING ENFORCER Leukocytes 12.0 (H) 3.4 - 9.6 09/14/2020 DTL x10(9)/L 6:39 AM PARKING ENFORCER Specimen Anatomical Collection Method Collection Time Receive d Time (Source) Location / / Volume Laterality Blood (Blood, 09/14/2020 6:04 AM 09/14/19 6:30 Venous) PARKING ENFORCER AM PARKING ENFORCER Eber Zimmerman M.D. LAB BLOOD ADD-ON Performing Organization Address City/State/ZIP Code Phon e Number [facility] - [address] (ABNORMAL) Prothrombin Time (PT) (09/14/2020 6:04 AM PARKING ENFORCER) [facility] Method Time Signature Prothrombin 16.3 (H) 9.4 - 12.5 09/14/2020 DTL Time, P sec 6:47 AM PARKING ENFORCER INR 1.5 0.9 - 1.1 09/14/2020 DTL 6:47 AM PARKING ENFORCER Comment: ----ADDITIONAL INFORMATION---- Standard intensity warfarin therapeutic range: 2.0 to 3.0 ?? High intensity warfarin therapeutic rang e: 2.5 to 3.5 Specimen Anatomical Collection Method Collection Time Receive d Time (Source) Location / / Volume Laterality Blood (Blood, 09/14/2020 6:04 AM 09/14/19 6:29 Venous) PARKING ENFORCER AM PARKING ENFORCER Eber Zimmerman M.D. LAB BLOOD ADD-ON Performing Organization Address City/State/ZIP Code Phon e Number [facility] - [address] [place], [place] [address] [facility] [place] [address] [facility] [address] (ABNORMAL) Comprehensive Metabolic Panel (09/14/2020 6:04 AM PARKING ENFORCER) P athologist Signature Potassium, S 4.2 3.6 - 5.2 09/14/2020 DTL mmol/L 7:00 AM PARKING ENFORCER Sodium, S 135 135 - 145 09/14/2020 DTL mmol/L 7:00 AM PARKING ENFORCER Chloride, S 98 98 - 107 09/14/2020 DTL mmol/L 7:00 AM PARKING ENFORCER Bicarbonate, S 27 22 - 29 09/14/2020 DTL mmol/L 7:00 AM PARKING ENFORCER Anion Gap 10 7 - 15 09/14/2020 DTL 7:00 AM PARKING ENFORCER BUN (Blood Urea 8 8 - 24 09/14/2020 DTL Nitrogen), S mg/dL 7:00 AM PARKING ENFORCER Creatinine 0.99 0.74 - 09/14/2020 DTL 1.35 mg/dL 7:00 AM PARKING ENFORCER eGFR-Non 85 >=60 09/14/2020 DTL Black/ mL/min/BSA 7:00 AM PARKING ENFORCER Ghanaian Comment: ----ADDITIONAL INFORMATION---- Estimated GFR calculated using the 2009 CKD_EPI creatinine equation. eGFR-Black/ >90 >=60 mL/min/BSA 2020 7:00 AM PARKING ENFORCER DTL Comment: ----ADDITIONAL INFORMATION---- Estimated GFR calculated using the 2009 CKD_EPI creatinine equation. Calcium, Total, S 8.2 (L) 8.6 - 10.0 mg/dL 09/14/2020 7:00 AM PARKING ENFORCER DTL Glucose, S 110 70 - 140 mg/dL 09/14/2020 7:00 AM PARKING ENFORCER D TL Protein, Total, S 5.5 (L) 6.3 - 7.9 g/dL 09/14/2020 7:00 A M PARKING ENFORCER DTL Albumin, S 2.7 (L) 3.5 - 5.0 g/dL 09/14/2020 7:00 AM PARKING ENFORCER D TL Aspartate Aminotransferase 52 (H) 8 - 48 U/L 09/14/2020 7 :00 AM PARKING ENFORCER DTL (AST), S Alkaline Phosphatase, S 355 (H) 40 - 129 U/L 09/14/2020 7: 00 AM PARKING ENFORCER DTL Alanine Aminotransferase 79 (H) 7 - 55 U/L 09/14/2020 7:0 0 AM PARKING ENFORCER DTL (ALT), S Bilirubin, Total, S 0.7 <=1.2 mg/dL 09/14/2020 7:00 AM PARKING ENFORCER DTL Specimen Anatomical Collection Method Collection Time Receive d Time (Source) Location / / Volume Laterality Blood (Blood, 09/14/2020 6:04 AM 09/14/19 6:24 Venous) PARKING ENFORCER AM PARKING ENFORCER Eber Zimmerman M.D. LAB BLOOD ADD-ON Performing Organization Address City/State/ZIP Code Phon e Number [facility] - 200 [place], [place] [address] [facility] [place] [address] [facility] 200 [facility] (ABNORMAL) Hepatic Function Panel (09/13/2020 6:10 AM PARKING ENFORCER) [facility] gist Method Time Signature Bilirubin, Total, S 0.8 <=1.2 09/13/2020 DTL mg/dL 7:09 AM PARKING ENFORCER Bilirubin, Direct, S 0.4 (H) 0.0 - 0.3 09/13/2020 DTL mg/dL 7:09 AM PARKING ENFORCER Aspartate 14 8 - 48 09/13/2020 DTL Aminotransferase U/L 7:09 AM PARKING ENFORCER (AST), S Alanine 40 7 - 55 09/13/2020 DTL Aminotransferase U/L 7:09 AM PARKING ENFORCER (ALT), S Alkaline 253 (H) 40 - 129 09/13/2020 DTL Phosphatase, S U/L 7:09 AM PARKING ENFORCER Albumin, S 2.7 (L) 3.5 - 5.0 09/13/2020 DTL g/dL 7:09 AM PARKING ENFORCER Protein, Total, S 5.3 (L) 6.3 - 7.9 09/13/2020 DTL g/dL 7:09 AM PARKING ENFORCER Specimen Anatomical Collection Method Collection Time Receive d Time (Source) Location / / Volume Laterality Blood (Blood, 09/13/2020 6:10 AM 09/13/19 6:37 Venous) PARKING ENFORCER AM PARKING ENFORCER Timothy Chung M.D. LAB BLOOD ADD-ON Performing Organization Address City/State/ZIP Code Phon e Number [facility] - 200 [place], [place] [address] [facility] [place] [address] [facility] [address] (ABNORMAL) Basic Metabolic Panel (09/13/2020 6:10 AM PARKING ENFORCER) P athologist Signature Potassium, S 4.4 3.6 - 5.2 09/13/2020 DTL mmol/L 7:09 AM PARKING ENFORCER Sodium, S 132 (L) 135 - 145 09/13/2020 DTL mmol/L 7:09 AM PARKING ENFORCER Chloride, S 98 98 - 107 09/13/2020 DTL mmol/L 7:09 AM PARKING ENFORCER Bicarbonate, S 26 22 - 29 09/13/2020 DTL mmol/L 7:09 AM PARKING ENFORCER Anion Gap 8 7 - 15 09/13/2020 DTL 7:09 AM PARKING ENFORCER BUN (Blood Urea 12 8 - 24 09/13/2020 DTL Nitrogen), S mg/dL 7:09 AM PARKING ENFORCER Creatinine 1.03 0.74 - 09/13/2020 DTL 1.35 mg/dL 7:09 AM PARKING ENFORCER eGFR-Non 81 >=60 09/13/2020 DTL Black/ mL/min/BSA 7:09 AM PARKING ENFORCER Ghanaian Comment: ----ADDITIONAL INFORMATION---- Estimated GFR calculated using the 2009 CKD_EPI creatinine equation. eGFR-Black/ >90 >=60 mL/min/BSA 2020 7:09 AM PARKING ENFORCER DTL Comment: ----ADDITIONAL INFORMATION---- Estimated GFR calculated using the 2009 CKD_EPI creatinine equation. Calcium, Total, S 8.3 (L) 8.6 - 10.0 mg/dL 09/13/2020 7:09 AM PARKING ENFORCER DTL Glucose, S 94 70 - 140 mg/dL 09/13/2020 7:09 AM PARKING ENFORCER D TL Specimen Anatomical Collection Method Collection Time Receive d Time (Source) Location / / Volume Laterality Blood (Blood, 09/13/2020 6:10 AM 09/13/19 6:37 Venous) PARKING ENFORCER AM PARKING ENFORCER Timothy Chung M.D. LAB BLOOD ADD-ON Performing Organization Address City/State/ZIP Code Phon e Number [facility] - [address] [place], [place] [address] [facility] [place] [address] [facility] [address] [facility] (ABNORMAL) CBC with Differential, Blood (09/13/2020 6:10 AM PARKING ENFORCER) [facility] gist Method Time Signature Hemoglobin 9.2 (L) 13.2 - 09/13/2020 DTL 16.6 g/dL 6:48 AM PARKING ENFORCER Hematocrit 29.1 (L) 38.3 - 09/13/2020 DTL 48.6 % 6:48 AM PARKING ENFORCER Erythrocytes 3.52 (L) 4.35 - 09/13/2020 DTL 5.65 6:48 AM PARKING ENFORCER x10(12)/L MCV 82.7 78.2 - 09/13/2020 DTL 97.9 fL 6:48 AM PARKING ENFORCER RBC Distrib Width 13.2 11.8 - 09/13/2020 DTL 14.5 % 6:48 AM PARKING ENFORCER Platelet Count 303 135 - 317 09/13/2020 DTL x10(9)/L 6:48 AM PARKING ENFORCER Leukocytes 11.1 (H) 3.4 - 9.6 09/13/2020 DTL x10(9)/L 6:48 AM PARKING ENFORCER Neutrophils 9.60 (H) 1.56 - 09/13/2020 DTL 6.45 6:48 AM PARKING ENFORCER x10(9)/L Lymphocytes 0.49 (L) 0.95 - 09/13/2020 DTL 3.07 6:48 AM PARKING ENFORCER x10(9)/L Monocytes 0.85 (H) 0.26 - 09/13/2020 DTL 0.81 6:48 AM PARKING ENFORCER x10(9)/L Eosinophils 0.11 0.03 - 09/13/2020 DTL 0.48 6:48 AM PARKING ENFORCER x10(9)/L Basophils 0.04 0.01 - 09/13/2020 DTL 0.08 6:48 AM PARKING ENFORCER x10(9)/L Specimen Anatomical Collection Method Collection Time Receive d Time (Source) Location / / Volume Laterality Blood (Blood, 09/13/2020 6:10 AM 09/13/19 21 6:38 Venous) PARKING ENFORCER AM PARKING ENFORCER Timothy Chung M.D. LAB BLOOD ADD-ON Performing Organization Address City/[facility]/ZIP Code Phon e Number [facility] - [address] [place] [address] Bilirubin, Direct (09/12/2020 6:51 PM PARKING ENFORCER) P athologist Signature Bilirubin, 0.3 0.0 - 0.3 09/12/2020 DTL Direct, S mg/dL 8:05 PM PARKING ENFORCER Specimen Anatomical Collection Method Collection Time Receive d Time (Source) Location / / Volume Laterality Blood 09/12/2020 6:51 PM 1 7:08 PARKING ENFORCER PM PARKING ENFORCER Kalin Flynn M.D. LAB BLOOD ADD-ON Performing Organization Address City/[facility]/ZIP Code Phon e Number [facility] - [address] [place] [id number] [address] AST (Aspartate Aminotransferase) (09/12/2020 6:51 PM PARKING ENFORCER) Patholo gist Method Time Signature Aspartate 29 8 - 48 09/12/2020 DTL Aminotransferase U/L 8:05 PM PARKING ENFORCER (AST), S Specimen Anatomical Collection Method Collection Time Receive d Time (Source) Location / / Volume Laterality Blood 09/12/2020 6:51 PM 1 7:08 PARKING ENFORCER PM PARKING ENFORCER Kalin Flynn M.D. LAB BLOOD ADD-ON Performing Organization Address City/[facility]/ZIP Code Phon e Number [facility] - 200 [place], [place] [address] [facility] [place] [address] [facility] 200 [facility] Lactate (09/12/2020 6:51 PM PARKING ENFORCER) P athologist Signature Lactate, P 1.0 0.5 - 2.2 09/12/2020 STMA mmol/L 7:14 PM PARKING ENFORCER Specimen Anatomical Collection Method Collection Time Receive d Time (Source) Location / / Volume Laterality Blood (Blood, 09/12/2020 6:51 PM 09/12/19 6:57 Venous) PARKING ENFORCER PM PARKING ENFORCER Kalin Flynn M.D. LAB BLOOD NON ADD-ON Performing Organization Address City/State/ZIP Code Phon e Number [facility] - 200 [place] [address] [address] [facility] STMA [place] [id number] [place] [address] 200 [facility] (ABNORMAL) Dipstick, POCT, Urine (09/12/2020 6:08 PM PARKING ENFORCER) Patholo gist Method Time Signature Glucose, POCT, Negative Negative 09/12/2020 PCED U mg/dL 6:10 PM PARKING ENFORCER Ketone, POCT, 15 (A) Negative 09/12/2020 PCED U mg/dL 6:10 PM PARKING ENFORCER Specific <=1.005 1.005 - 09/12/2020 PCED [place], POCT, 1.030 6:10 PM PARKING ENFORCER U Blood, POCT, U Negative Negative 09/12/2020 PCED 6:10 PM PARKING ENFORCER pH, POCT, 5.5 5.0 - 8.0 09/12/2020 PCED Urine 6:10 PM PARKING ENFORCER Protein, POCT, 30 (A) Negative 09/12/2020 PCED U mg/dL 6:10 PM PARKING ENFORCER Nitrites, Negative Negative 09/12/2020 PCED POCT, U 6:10 PM PARKING ENFORCER Leukocytes, Negative Negative 09/12/2020 PCED POCT, U 6:10 PM PARKING ENFORCER Specimen Anatomical Collection Method Collection Time Receive d Time (Source) Location / / Volume Laterality Urine 09/12/2020 6:08 PM 6:10 PARKING ENFORCER PM PARKING ENFORCER Unknown Provider LAB POCT ORDERABLES - DEVICE Performing Organization Address City/State/ZIP Code Phon e Number [facility] [address] [place] [address] [place] [address] [facility] 200 [facility] Microscopic Manual (09/12/2020 6:04 PM PARKING ENFORCER) P athologist Signature Microscopy Normal 09/12/2020 7:14 SHWETA PM PARKING ENFORCER RBC <3 <3 /hpf 09/12/2020 7:14 SHWETA PM PARKING ENFORCER WBC 1-3 /hpf 09/12/2020 7:14 SHWETA PM PARKING ENFORCER Comment: ----REFERENCE VALUE---- 1-3 ??(Males) 1-10 (Females) Specimen Anatomical Collection Method Collection Time Receive d Time (Source) Location / / Volume Laterality Urine 09/12/2020 6:04 PM 6:30 PARKING ENFORCER PM PARKING ENFORCER Blade Mandujano M.D. LAB URINE ORDERABLES Performing Organization Address [facility] Phon e Number [facility] - [address] Bacterial Culture, Aerobic + Susc, Urine (09/12/2020 6:04 PM PARKING ENFORCER) [facility] Method Time [facility] Urine Culture No growth 09/14/2020 DT after 1 day 7:10 AM PARKING ENFORCER of incubation. Specimen Anatomical Collection Method Collection Time Receive d Time (Source) Location / / Volume Laterality Urine (Urine, 09/12/2020 6:04 PM 09/12/19 7:46 Midstream) PARKING ENFORCER PM PARKING ENFORCER Comment: Specimen Source Site: Urine Pj Dixon M.D., M.P.H. LAB MICROBIOLOGY - GENERAL O RDERABLES Performing Organization Address City/[facility] Phon e Number [facility] - [address] DTL [address] (ABNORMAL) Urinalysis with Microscopic: Urine, Midstream (09/12/2020 6:04 PM [employer]NF[employer]) [facility] gist Method Time Signature Source Midstream 09/12/2020 [place] 6:30 PM [employer] Appearance Normal Normal 09/12/2020 [place] 6:44 PM [employer] Osmolality, U 582 150 - 1150 09/12/2020 [place] mOsm/kg 6:56 PM [employer] pH, U 5.7 4.5 - 8.0 09/12/2020 [place] 6:56 PM [employer] Comment: ----ADDITIONAL INFORMATION---- This test was developed and its performa nce characteristics determined by Pam [facility] in a manner co nsistent with CLIA requirements. This test has not bee n cleared or approved by the U.S. Food and Drug Admin istration. Glucose 11 0 - 15 mg/dL 09/12/2020 6:44 PM [facility]ING [employer]NFORCER [place] Protein, U 60 (H) <26 mg/dL 09/12/2020 6:44 PM [employer]ING ENFORCER [place]ET[place] Comment: ----ADDITIONAL INFORMATION---- On 03/07/2017 the total protein assay me thod changed resulting in approximately a 15% increase in prote in values. Protein/Osmolality 1.03 (H) <0.42 Ratio 09/12/2020 6:56 PM [employer]ER [place]ETA Comment: ----ADDITIONAL INFORMATION---- On 03/07/2017 the total protein assay me thod changed resulting in approximately a 15% increase in prote in values. Predicted 24 Hr Protein 969 mg/24 h 09/12/2020 6:56 PM [employer]NF[employer]ER [place]ETA Predicted Range 308-3054 mg/24 h 09/12/2020 6:56 PM PARKING ENFORCER R CRISTI Hemoglobin, QL Negative Negative 09/12/2020 7:14 PM PARKING ENFORCER RE NA Specimen Anatomical Collection Method Collection Time Receive d Time (Source) Location / / Volume Laterality Urine (Urine, 09/12/2020 6:04 PM 09/12/19 6:30 Midstream) PARKING ENFORCER PM PARKING ENFORCER Pj Dixon M.D., M.P.H. LAB URINE ORDERABLES Performing Organization Address City/State/ZIP Code Phon e Number [facility] - [address] [place], [place] [address] [facility] [place] [address] [facility] [address] Abdomen Pelvis with IV Contrast (09/12/2020 5:25 PM PARKING ENFORCER) Anatomical Region Laterality Modality Abdomen, Pelvis, Abdominal RST LOS, N/A Comp uted Tomography, Computed Abdominal ARZ LOS, Abdominal FLA LOS Dileep ography Specimen (Source) Anatomical Collection Method Collection Time Re ceived Time Location / / Volume Laterality 09/12/2020 5:40 PM PARKING ENFORCER Impressions 09/12/2020 6:34 PM PARKING ENFORCER 1. Extensive necrotizing peripancreatic fluid collections appear similar in size to the MRI from 09/09/2020. New foci of gas within the collections are highly suspicious for infection. 2. 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 3. Known pancreatic uncinate malignancy appears unchanged. 4. Indeterminate hypoenhancing region in the inferior right liver. Narrative 09/12/2020 6:34 PM PARKING ENFORCER EXAM: ??CT ABDOMEN PELVIS WITH IV CONTRAST COMPARISON: ??Triple phase pancreas CT 1 10/19/2019, abdominal MRI 09/09/2020. FINDINGS: ?? Biopsy-proven pancreatic uncinate malign negro appears unchanged, measuring approximately 1.7 cm, but is suboptimall y evaluated on this single phase exam (series 3, image 55). Complex necrotizin g peripancreatic fluid collections appear similar in size to MRI from 09/09. The collections extend from the pancreatic head to the splenic hilum, un kinsey the medial left hemidiaphragm, and along the left paracolic gutter. The dom inant pocket along the left paracolic gutter measures approximately 6.8 x 5.9 x 9.5 cm (series 3, image 61 and 4/55). A portion of the collections abut the ga stric greater curvature (series 4, circa image 52). New scattered foci of gas wit hin the collections, for example near the spleen (series 3/image 55), inferior to the main pancreatic body (series 3/image 52), and within fluid along the left diaphragmatic marj. No definite pancreatic parenchymal necrosis or ducta l discontinuity, although the duct is not well visualized. Redemonstrated severe narrowing of the u pper SMV. Patent main and right portal veins. Persistent thrombus in the left l ateral portal vein. Hepatic veins are patent. The splenic and common hepatic a rteries traverse the peripancreatic necrosis. No pseudoaneurysm. Metallic CBD stent with expected pneumob jose. Geographic hypoenhancement in the inferior right hepatic lobe may be perfu sional (series 4, image 64). A 1.5 cm hypoenhancing region in the inferior rig ht hepatic lobe is indeterminate (series 4, image 42 and 3/61). Left retroperiton eal embolization coils. Small left pleural effusion. Bibasilar a telectasis. CVC tip in the RA. Tiny right middle lobe nodules. Procedure Note Abilio Orozco M.D. - 09/12/2020Forma tting of this note might be different from the original. EXAM: CT ABDOMEN PELVIS WITH IV CONTRAST COMPARISON: Triple phase pancreas CT 04/2020, abdominal MRI 09/09/2020. FINDINGS: Biopsy-proven pancreatic uncinate malign negro appears unchanged, measuring approximately 1.7 cm, but is suboptimall y evaluated on this single phase exam (series 3, image 55). Complex necrotizin g peripancreatic fluid collections appear similar in size to MRI from 09/09. The collections extend from the pancreatic head to the splenic hilum, un kinsey the medial left hemidiaphragm, and along the left paracolic gutter. The dom inant pocket along the left paracolic gutter measures approximately 6.8 x 5.9 x 9.5 cm (series 3, image 61 and 4/55). A portion of the collections abut the ga stric greater curvature (series 4, circa image 52). New scattered foci of gas wit hin the collections, for example near the spleen (series 3/image 55), inferior to the main pancreatic body (series 3/image 52), and within fluid along the left diaphragmatic marj. No definite pancreatic parenchymal necrosis or ducta l discontinuity, although the duct is not well visualized. Redemonstrated severe narrowing of the u pper SMV. Patent main and right portal veins. Persistent thrombus in the left l ateral portal vein. Hepatic veins are patent. The splenic and common hepatic a rteries traverse the peripancreatic necrosis. No pseudoaneurysm. Metallic CBD stent with expected pneumob jose. Geographic hypoenhancement in the inferior right hepatic lobe may be perfu sional (series 4, image 64). A 1.5 cm hypoenhancing region in the inferior rig ht hepatic lobe is indeterminate (series 4, image 42 and 3/61). Left retroperiton eal embolization coils. Small left pleural effusion. Bibasilar a telectasis. CVC tip in the RA. Tiny right middle lobe nodules. IMPRESSION: 1. Extensive necrotizing peripancreatic fluid collections appear similar in size to the MRI from 09/09/2020. New foci of gas within the collections are highly suspicious for infection. 2. 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 3. Known pancreatic uncinate malignancy appears unchanged. 4. Indeterminate hypoenhancing region in the inferior right liver. Kalin Flynn M.D. IMG CT PROCEDURES Bacteria / Brigid Culture, Blood # 2 (09/12/2020 5:03 PM PARKING ENFORCER) [facility] gist Method Time Signature Bacteria/Jane No growth 09/17/2020 DTL da Culture, after 5 6:02 PM PARKING ENFORCER Blood days of incubation. Specimen (Source) Anatomical Collection Method Collection Time Re ceived Time Location / / Volume Laterality Blood (Blood, 09/12/2020 5:03 09/12/2020 5:15 Peripheral Draw) PM PARKING ENFORCER PM PARKING ENFORCER Comment: Specimen Source Site: Blood Narrative [facility] - [facility] - 09/17/2020 6:02 PM PARKING ENFORCER Specimen Information: Specimen ID: [id number] Specimen Source: Blood, Peripheral Draw Specimen Comment: Specimen Source Site: Blood Specimen Collection Start Date: 1 ??5:03 PM Specimen Received Date: 09/12/2020 ??5:15 PM Specimen ID: [id number] Specimen Source: Blood, Peripheral Draw Specimen Comment: Specimen Source Site: Blood Specimen Collection Start Date: 1 ??5:03 PM Specimen Received Date: 09/12/2020 ??5:15 PM Specimen ID: [id number] Specimen Source: Blood, Peripheral Draw Specimen Comment: Specimen Source Site: Blood Specimen Collection Start Date: 1 ??5:03 PM Specimen Received Date: 09/12/2020 ??5:15 PM Kalin Flynn M.D. LAB MICROBIOLOGY - GENERAL ORDERABLES Performing Organization Address City/State/ZIP Code Phon e Number [facility] - [address] [place], [place] [address] [facility] [place] [place] [address] [facility] [address] (ABNORMAL) Lipase (09/12/2020 5:02 PM PARKING ENFORCER) athologist Signature Lipase, S 12 (L) 13 - 60 U/L 09/12/2020 DTL 6:16 PM PARKING ENFORCER Specimen Anatomical Collection Method Collection Time Receive d Time (Source) Location / / Volume Laterality Blood (Blood, 09/12/2020 5:02 PM 09/12/19 5:24 Venous) PARKING ENFORCER PM PARKING ENFORCER Kalin Flynn M.D. LAB BLOOD ADD-ON Performing Organization Address City/State/ZIP Code Phon e Number [facility] - [address] [place], [place] [address] [facility] [place] [address] [facility] [address] (ABNORMAL) Hepatic Function Panel (09/12/2020 5:02 PM PARKING ENFORCER) athologist Signature Bilirubin, 0.8 <=1.2 09/12/2020 DTL Total, S mg/dL 6:16 PM PARKING ENFORCER Bilirubin, CANCELED mg/dL 09/12/2020 DTL Direct, S 6:39 PM PARKING ENFORCER Comment: Specimen was hemolyzed. Redraw has been ordered and is in progre ss. Result canceled by the ancillary. Aspartate Aminotransferase (AST), S CANCELED U/L 10/2020 6:39 PM PARKING ENFORCER DTL Comment: Specimen was hemolyzed. Redraw has been ordered and is in progre ss. Result canceled by the ancillary. Alanine Aminotransferase (ALT), 63 (H) 7 - 55 U/L 021 6:16 PM PARKING ENFORCER DTL S Alkaline Phosphatase, S 356 (H) 40 - 129 U/L 09/12/2020 6: 16 PM PARKING ENFORCER DTL Albumin, S 3.4 (L) 3.5 - 5.0 g/dL 09/12/2020 6:16 PM PARKING ENFORCER D TL Protein, Total, S 7.0 6.3 - 7.9 g/dL 09/12/2020 6:16 P M PARKING ENFORCER DTL Specimen Anatomical Collection Method Collection Time Receive d Time (Source) Location / / Volume Laterality Blood (Blood, 09/12/2020 5:02 PM 09/12/19 5:24 Venous) PARKING ENFORCER PM PARKING ENFORCER Kalin Flynn M.D. LAB BLOOD ADD-ON Performing Organization Address City/[facility] Phon e Number [facility] - [address] [place], [place] [address] [facility] [place] [address] [facility] [address] [facility] Lactate, POCT (09/12/2020 5:02 PM PARKING ENFORCER) Analysis Performed At Patho logist Time Signature Lactate, POCT Collected DEFAULT 09/12/2020 SMLX 5:02 PM PARKING ENFORCER Specimen Anatomical Collection Method Collection Time Receive d Time (Source) Location / / Volume Laterality Blood (Blood, 09/12/2020 5:02 PM 09/12/19 5:02 Venous) PARKING ENFORCER PM PARKING ENFORCER Kalin Flynn M.D. LAB POCT ORDERABLES - NEYMAR CE Performing Organization Address [facility] Phon e Number [facility] - [address] [place], [place] [address] [facility] [place] [address] [facility] [address] [facility] Lactate, POCT (09/12/2020 5:00 PM PARKING ENFORCER) P athologist Signature Lactate, POCT 1.38 0.50 - 09/12/2020 PCLX 2.20 5:12 PM PARKING ENFORCER mmol/L Sample Site, Venstick 09/12/2020 PCLX POCT 5:12 PM PARKING ENFORCER Specimen Anatomical Collection Method Collection Time Receive d Time (Source) Location / / Volume Laterality Blood 09/12/2020 5:00 PM 5:13 PARKING ENFORCER PM PARKING ENFORCER Unknown Provider LAB POCT ORDERABLES - DEVICE Performing Organization Address City/[facility] Phon e Number [facility] [address] [place] [address] [place] [address] [place] [facility] [address] [facility] Bacteria / Brigid Culture, Blood #1 (09/12/2020 4:44 PM PARKING ENFORCER) Patholo gist Method Time Signature Bacteria/Jane No growth 09/17/2020 DTL da Culture, after 5 6:02 PM PARKING ENFORCER Blood days of incubation. Specimen Anatomical Collection Method Collection Time Receive d Time (Source) Location / / Volume Laterality Blood (Blood, 09/12/2020 4:44 PM 09/12/19 5:16 PICC) PARKING ENFORCER PM PARKING ENFORCER Comment: Specimen Source Site: Blood Narrative [facility] - [facility] - 09/17/2020 6:02 PM PARKING ENFORCER Received Bactec Peds bottle Specimen Information: Specimen ID: [id number] Specimen Source: Blood, PICC Specimen Comment: Specimen Source Site: Blood Specimen Collection Start Date: 1 ??4:44 PM Specimen Received Date: 09/12/2020 ??5:16 PM Specimen ID: [id number] Specimen Source: Blood, PICC Specimen Comment: Specimen Source Site: Blood Specimen Collection Start Date: 1 ??4:44 PM Specimen Received Date: 09/12/2020 ??5:16 PM Specimen ID: [id number] Specimen Source: Blood, PICC Specimen Comment: Specimen Source Site: Blood Specimen Collection Start Date: ??4:44 PM Specimen Received Date: 09/12/2020 ??5:16 PM Kalin Flynn M.D. LAB MICROBIOLOGY - GENERAL ORDERABLES Performing Organization Address City/State/ZIP Code Phon e Number [facility] - [address] [place] [address] [facility] [place] [address] [facility] [address] Influenza A/B, SARS CoV-2, PCR, Rapid, Varies Symptomatic (09/12/2020 4:27 PM PARKING ENFORCER) [facility] Method Time Signature Influenza A, Negative Negative 09/12/2020 [facility] PCR, Rapid, V 5:04 PM PARKING ENFORCER Influenza B, Negative Negative 09/12/2020 [facility] PCR, Rapid, V 5:04 PM PARKING ENFORCER SARS CoV-2, Undetected Undetected 09/12/2020 [facility] PCR, Rapid, V 5:04 PM PARKING ENFORCER Comment: ----ADDITIONAL INFORMATION---- Testing was performed using the [employer] SA RS-CoV-2 and Influenza A/B Reagent assay from [employer], which has received Emergency Use Authori zation(EUA) by the U.S. Food and Drug Administration . Fact sheets for this Emergency Use Autho rization (EUA) assay can be found at the following link s: For Healthcare Providers: https://www.fda.gov/media/991503/downloa d For Patients: https://www.fda.gov/media/879670/downloa d Infl A/B, SARS CoV-2, PCR, Source Swab, Nasopharynx 09/12/2020 4:37 PM PARKING ENFORCER STMA Specimen Anatomical Collection Method Collection Time Receive d Time (Source) Location / / Volume Laterality Varies 09/12/2020 4:27 PM 4:37 (Nasopharynx) PARKING ENFORCER PM PARKING ENFORCER Kalin Flynn M.D. LAB MICROBIOLOGY - GENERAL ORDERABLES Performing Organization Address City/State/ZIP Code Phon e Number [facility] - [address] [place] [phone] [place] [address] [facility] [address] [facility] (ABNORMAL) CBC without Differential (09/12/2020 3:42 PM PARKING ENFORCER) [facility] gist Method Time Signature Hemoglobin 10.5 (L) 13.2 - 09/12/2020 [facility] 16.6 g/dL 3:50 PM PARKING ENFORCER Hematocrit 32.0 (L) 38.3 - 09/12/2020 STMA 48.6 % 3:50 PM PARKING ENFORCER Erythrocytes 3.91 (L) 4.35 - 09/12/2020 STMA 5.65 3:50 PM PARKING ENFORCER x10(12)/L MCV 81.8 78.2 - 09/12/2020 [facility] 97.9 fL 3:50 PM PARKING ENFORCER RBC Distrib Width 12.9 11.8 - 09/12/2020 [facility] 14.5 % 3:50 PM PARKING ENFORCER Platelet Count 356 (H) 135 - 317 09/12/2020 [facility] x10(9)/L 3:50 PM PARKING ENFORCER Leukocytes 12.2 (H) 3.4 - 9.6 09/12/2020 [facility]MA x10(9)/L 3:50 PM PARKING ENFORCER Specimen Anatomical Collection Method Collection Time Receive d Time (Source) Location / / Volume Laterality Blood (Blood, 09/12/2020 3:42 PM 09/12/19 21 3:46 Venous) PARKING ENFORCER PM PARKING ENFORCER Pj Dixon M.D., M.P.H. LAB BLOOD ADD-ON Performing Organization Address City/State/ZIP Code Phon e Number [facility] - [address] [place], [place] [address] [facility] [place] [place] [address] [facility] [address] [facility] (ABNORMAL) Basic Metabolic Panel (09/12/2020 3:42 PM PARKING ENFORCER) Analysis Performed At Patho logist Time Signature Potassium, P 4.0 3.6 - 5.2 09/12/2020 STMA mmol/L 4:10 PM PARKING ENFORCER Sodium, P 131 (L) 135 - 145 09/12/2020 [facility]MA mmol/L 4:10 PM PARKING ENFORCER Chloride, P 94 (L) 98 - 107 09/12/2020 [facility] mmol/L 4:10 PM PARKING ENFORCER Bicarbonate, P 25 22 - 29 09/12/2020 [facility] mmol/L 4:10 PM PARKING ENFORCER Anion Gap, P 12 7 - 15 09/12/2020 STMA 4:10 PM PARKING ENFORCER BUN (Blood Urea 13 8 - 24 09/12/2020 [facility]MA Nitrogen), P mg/dL 4:10 PM PARKING ENFORCER Creatinine 0.69 (L) 0.74 - 09/12/2020 [facility] 1.35 mg/dL 4:10 PM PARKING ENFORCER eGFR-Black/Afri >90 >=60 09/12/2020 [facility] can Ghanaian mL/min/BSA 4:10 PM PARKING ENFORCER Comment: ----ADDITIONAL INFORMATION---- Estimated GFR calculated using the 2009 CKD_EPI creatinine equation. eGFR Non-Black/ >90 >=60 mL/min/BSA 09/12/2020 4:10 PM PARKING ENFORCER [facility] Comment: ----ADDITIONAL INFORMATION---- Estimated GFR calculated using the 2009 CKD_EPI creatinine equation. Calcium, Total, P 9.0 8.6 - 10.0 mg/dL 09/12/2020 4:10 PM PARKING ENFORCER STMA Glucose, P 99 70 - 140 mg/dL 09/12/2020 4:10 PM PARKING ENFORCER S TMA Specimen Anatomical Collection Method Collection Time Receive d Time (Source) Location / / Volume Laterality Blood (Blood, 09/12/2020 3:42 PM 09/12/19 3:47 Venous) PARKING ENFORCER PM PARKING ENFORCER Pj Dixon M.D., M.P.H. 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 Malignant Neoplasm Of Pancreas (HCC) documented in this encounter Administered Medications Inactive Administered Medications - up to 3 most recent administrations Medication Order MAR Action Action Date Dose Rate Site enoxaparin injection 80 Given 09/15/2020 8:17 AM 80 mg Left Lower Abdomen mg (LOVENOX) PARKING ENFORCER 80 mg, subcutaneous, Every 12 hours, First dose on 09/12/20 at 2200 Given 09/14/2020 8:46 PM PARKING ENFORCER 80 mg Left Lower Abdomen Given 09/14/2020 11:31 AM PARKING ENFORCER 80 mg Righ t Lower Abdomen ertapenem injection 1 g (INVanz) Given 09/15/2020 11:53 AM PARKING ENFORCER 1 g 1 g, intravenous, Every 24 hours, First dose on Mon09/15/20 at 1100, If needed, reconstitute vial per package insert instructions. See IVAG for administration guidelines. , Restriction Criteria (Pharmacy will review and approve if criteria met): 1 dose prior to discharge, Drug Monitoring Program: Pharmacist to adjust medication dosing based on indication and drug clearance factors., Indications: Intra-abdominal infection, community acquired iohexoL 300 mg iodine/mL solution 1-200 mL Given 09/12/2020 5:15 PM PARKING ENFORCER 140 mL (OMNIPAQUE) 1-200 mL, intravenous, Once in imaging, contrast, Starting on 09/12/20 at 1714, For 1 dose, Imaging Protocol Orders, Dose per Radiant Medication Guidelines ketorolac injection 15 mg (TORADOL) Given 09/12/2020 3:41 PM PARKING ENFORCER 15 mg 15 mg, intravenous, Once as needed, mild pain or score 1-3 of 10, moderate pain or score 4-6 of 10, severe pain or score 7-10 of 10, renal colic/flank pain, suspicion of kidney stone, Starting on 09/12/20 at 1531, For 1 dose, Adult IV push rate: Over 15 seconds. Peds IV push rate: Over 1 minute. 60 mg dose only for IM, not recommended for IV. lactated Ringer's bolus 1,000 mL New Bag 09/13/2020 3:57 AM PARKING ENFORCER 1,000 mL 500 mL/hr 1,000 mL, intravenous, at 500 mL/hr, Administer over 2 Hours, Once, On 09/13/20 at 0330, For 1 dose lidocaine 5 % 1 patch Medication Applied 09/12/2020 9:46 PM PARKING ENFORCER 1 pat ch Back (LIDODERM) 1 patch, transdermal, Administer over 12 Hours, Daily, First dose on 09/12/20 at 2045, R low back. Remove after 12 hours. melatonin tablet 3 mg 3 mg, oral, Bedtime PRN, sleep, Starting on 09/12/20 at 204 mineral oil enema 1 enema Given 09/14/2020 6:20 PM PARKING ENFORCER 1 enema 1 enema, rectal, Once, On 09/14/20 at 1745, For 1 dose NaCl 0.9 % bolus 1,000 mL New Bag 09/12/2020 4:25 PM PARKING ENFORCER 1,000 mL 1000 mL/hr 1,000 mL, intravenous, at 1,000 mL/hr, Administer over 1 Hours, Once, On 09/12/20 at 1620, For 1 dose ondansetron (PF) injection 4 mg (ZOFRAN) Given 09/12/2020 3:39 PM PARKING ENFORCER 4 mg 4 mg, intravenous, Once as needed, nausea, vomiting, Starting on 09/12/20 at 1531, For 1 dose, Select antiemetic if IV access obtained. oxyCODONE IR tablet 5 mg (ROXICODONE) Given 09/12/2020 7:28 PM PARKING ENFORCER 5 mg 5 mg, oral, Once, On 09/12/20 at 1923, For 1 dose oxyCODONE IR tablet 5 mg (ROXICODONE) Given 09/15/2020 6:44 AM PARKING ENFORCER 5 mg 5 mg, oral, Every 6 hours PRN, moderate pain or score 4-6 of 10, severe pain or score 7-10 of 10, Starting on 09/12/20 at 2037, Indications: Prolonged Acute Pain/Traumatic Injury Given 09/14/2020 11:30 AM PARKING ENFORCER 5 mg Given 09/14/2020 3:23 AM PARKING ENFORCER [address] tablet 40 mg (PROTONIX) Given 09/15/2020 6:44 AM PARKING ENFORCER 40 mg 40 mg, oral, Daily before breakfast, First dose on Mon09/13/20 at 0700, Swallow whole. Do NOT crush, chew, or split tablet. Given 09/14/2020 6:43 AM PARKING ENFORCER 40 mg Given 09/13/2020 6:01 AM PARKING ENFORCER 40 mg piperacillin-tazobactam in dextrose New Bag 09/15/2020 8:16 AM PARKING ENFORCER 3.375 g 100 mL/hr (iso-osm) IVPB 3.375 g (ZOSYN) 3.375 g, intravenous, at 100 mL/hr, Administer over 0.5 Hours, Every 6 hours, First dose on 09/12/20 at 2045, premix bag, Drug Monitoring Program: Pharmacist to adjust medication dosing based on indication and drug clearance factors., Indications: Intra-abdominal infection, community acquired New Bag 09/15/2020 3:17 AM PARKING ENFORCER 3.375 g 100 mL/hr New Bag 09/14/2020 8:46 PM PARKING ENFORCER 3.375 g 100 mL/hr polyethylene glycol powder packet 17 g Given 09/15/2020 8:16 AM PARKING ENFORCER 17 g (MIRALAX) 17 g, oral, Daily, First dose on Mon09/13/20 at 0900, 17 g = 1 heaping Tablespoon. Dissolve in 240 mLs (8 ounces) of water prior to giving. Avoid mixing with starch-based thickened liquids. Given 09/14/2020 7:41 PM PARKING ENFORCER 17 g Given 09/13/2020 9:29 AM PARKING ENFORCER 17 g sennosides-docusate sodium 8.6-50 mg per Given 09/15/2020 8:16 A M PARKING ENFORCER 1 tablet tablet 1 tablet (SENOKOT-S) 1 tablet, oral, 2 times daily, First dose on 09/12/20 at 2100 Given 09/14/2020 8:46 PM PARKING ENFORCER 1 tablet Given 09/13/2020 9:09 PM PARKING ENFORCER 1 tablet sodium chloride (PF) 0.9 % injection 1-1 00 mL Given 09/12/2020 5:16 PM PARKING ENFORCER 50 mL 1-100 mL, intravenous, Once, On 09/12/20 at 1715, For 1 dose, Imaging Protocol Orders documented in this encounter Active and Recently Administered Medications Times are shown in PARKING ENFORCER. Scheduled Medication Order 09/13/2020 09/14/2020 09/15/2020 enoxaparin injection 80 mg (LOVENOX) 0929 (Given - Pro vider: Nella Palomares R.N.)2108 (Given - Provider: Keiry Chambers R.N.)221 (Held by provider - Provider: Rafaela ReynosoSRiaz - Comment: procedure) 0953 (Unheld by provider - Provider: Eber Zimmerman M.D.)1131 (Given - Provider: Antonella Shipley R.N.)2045 (Given - Provider: Keiry Chambers R.N.) 0817 (Given - Provider: Jorge Luis Amaya R.N.) 80 mg, subcutaneous, Every 12 hours, First dose on Mon09/12/20 at 2200 ertapenem injection 1 g (INVanz) 1153 (Given - Provider: Jorge Luis Amaya R.N.) 1 g, intravenous, Every 24 hours, First dose on Mon09/15/20 at 1100, If needed, reconstitute vial per package insert instructions. See IVAG for administration guidelines. , Restriction Criteria (Pharmacy will review and approve if criteria met ): 1 dose prior to discharge, Drug Monitoring Program: Pharmacist to adjust medication dosing based on indication and drug clearance factors., Indications: Intra-abdominal infection, community acquired lactated Ringer's bolus 1,000 mL (COMPLETED) 0357 (New Bag - Provider: Eliza Saenz R.N.) 1,000 mL, intravenous, at 500 mL/hr, Adm inister over 2 Hours, Once, On Mon09/13/20 at 0330, For 1 dose lidocaine 5 % 1 patch (LIDODERM) 0922 (Medication Atif yaniv - Provider: Nella Palomares R.N.)0923 (Not Given - Provider: Nella Palomares R.N. - Reason: Patient/family refused) 0837 (Not Given - Provider: Antonella bonds R.N. - Reason: Patient/family refused) 0813 (Not Given - Provider: Jorge Luis bosch R.N. - Reason: Patient/family refused) 1 patch, transdermal, Administer over 12 Hours, Daily, First dose on 09/12/20 at 2045, R low back. Remove after 12 hours. mineral oil enema 1 enema (COMPLETED) 18 20 (Given - Provider: Antonella Shipley RRiazNRiaz) 1 enema, rectal, Once, On 09/14/20 at 1745, For [address] tablet 40 mg (PROTONIX) 0601 (Given - Provider: Roxie Nguyen R.N.) 0643 (Given - Provider: Cipriano JuniorN.) 06 44 (Given - Provider: Keiry Chambers R.NRiaz) 40 mg, oral, Daily before breakfast, Fir st dose on Mon09/13/20 at 0700, Swallow whole. Do NOT crush, chew, or split tablet. piperacillin-tazobactam in dextrose (iso-osm) IVPB 3.3 75 g (ZOSYN) (CANCELED) 0309 (New Bag - Provider: Roxie Nguyen RRiazN.)0924 (New Bag - Provider: Nella Palomares R.N.)1535 (New Bag - Provider: Lola Marrufo R.N.)2109 (New Bag - Provider: Keiry Chambers R.N.) 0323 (New Bag - Provider: Keiry Chambers R.N.)0841 (New Bag - Provider: Antonella Shipley R.N.)1451 (New Bag - Provider: Antonella Shipley R.N.)2046 (New Bag - Provider: Keiry Chambers R.N.) 0317 (New Bag - Provider: Keiry Chambers R.N.)0816 (New Bag - Provider: Jorge Luis Amaya R.N.) 3.375 g, intravenous, at 100 mL/hr, Admi nister over 0.5 Hours, Every 6 hours, First dose on 09/12/20 at 2045, premix bag, Drug Monitoring Program: Pharmacist to adjust medication dosing based on indic ation and drug clearance factors., Indic ations: Intra-abdominal infection, community acquired polyethylene glycol powder packet 17 g (MIRALAX) 09 (Given - Provider: Nella Palomares R.N.) 0838 (Not Given - Provider: Antonella bonds RRiazNRiaz - Reason: NPO)1940 (Given - Provider: Keiry Chambers R.N.) 0816 (Given - Provider: Jorge Luis Amaya R.N.) 17 g, oral, Daily, First dose on Sun 09/13 at 0900, 17 g = 1 heaping Tablespoon. Dissolve in 240 mLs (8 ounces) of water prior to giving. Avoid mixing with starch-based thickened liquids. sennosides-docusate sodium 8.6-50 mg per tablet 1 tabl et (SENOKOT-S) 922 (Given - Provider: Nella Palomares R.N.)2108 (Given - Provider: Keiry Chambers R.N.) 0838 (Not Given - Provider: Antonella bonds R.NRiaz - Reason: NPO)2045 (Given - Provider: Keiry Chambers R.N.) 0816 (Given - Provider: Jorge Luis Amaya R.N.) 1 tablet, oral, 2 times daily, First dose on 09/12/20 at 2100 PRN Medication Order 09/13/2020 09/14/2020 09/15/2020 calcium carbonate chewable tablet 400 mg of calcium (TUMS) 400 mg of calcium, oral, Every 2 hour ND N, heartburn, indigestion, Starting 09/12/20 at 2038, Doses listed are in mg of elemental calcium. Take with food. 500 mg calcium carbonate contains 200 mg of elemental calcium. melatonin tablet 3 mg 3 mg, oral, Bedtime PRN, sleep, Starting on 09/12/20 at 2040 naloxone injection 0.2 mg (NARCAN) 0.2 mg, intravenous, As needed, respirat ory depression, Starting 09/12/20 at 2036, For RASS Score -4 or less, respiratory rate of less than 8 breaths/min. Notify provider/service and rapid response team (if available at institution). ondansetron ODT disintegrating tablet 4 mg (ZOFRAN-ODT) 4 mg, oral, Every 6 hours PRN, nausea, v omiting, Starting 09/12/20 at 2038, When splitting ODT at bedside, handle with gloves and a pill splitter to prevent moisture contact. oxyCODONE IR tablet 5 mg (ROXICODONE) 0511 (Given - Pr ovider: Marisa Jones, R.N.)1110 (Given - Provider: Nella Palomares R.N.)1731 (Given - Provider: Lola Marrufo R.N.) 0323 (Given - Provider: Keiry Cannon R.N.)1130 (Given - Provider: Antonella Shipley R.N.) 0644 (Given - Provider: Keiry Chambers R.N.) 5 mg, oral, Every 6 hours PRN, moderate pain or score 4-6 of 10, severe pain or score 7-10 of 10, Starting on 09/12/20 at 2036, Indications: Prolonged Acute Pain/Traumatic Injury simethicone chewable tablet 80 mg (MYLICON) 80 mg, oral, 4 times daily PRN, flatulence, Starting 09/12/20 at 2035 documented in this encounter Additional Health Concerns Infection Onset Date Last Indicated Resolved Time COVID19 Pending 09/12/2020 09/12/2020 09/12/2020 5:04 PM PARKING ENFORCER documented as of this encounter Care Teams Roll Setter Relationship Specialty Start Date End Date Elsewhere, Pcp PCP - General Family Medicine 08/12/20 documented as of this encounter
--- OUTSIDE RECORDS SUMMARY | 2022-06-18 16:22 | XMS_ITS | Encounter Summary ---
:[address] [facility] Address [address] [place] [address] Care Team Providers Name Role Phone Elsewhere, Pcp Primary Care Provider Unavailable Reason for Visit Auth/Cert Specialty Diagnoses / Procedures Referred By Contact Refer red To Contact Diagnoses Abscess Pancreas (HCC) Procedures DIR Referral ID Status Reason Start Date Expiration Date Visits Requ ested Visits Authorized [id number] 1 1 Encounter Details Date Type Department Care Team Description 10/01/2020 Hospital Encounter Department of [place]iology, [place] [address] [facility] [address] [place] [id number] [phone] Social History Tobacco Use Types Packs/Day Years [...] How often do you attend baptist or hinduism services? 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 Stop date: Oct 09, 2020. oxyCODONE (ROXICODONE) 5 Take 1 tablet (5 mg 30 tablet 0 10/02/2020 mg immediate release total) by mouth tabletIndications: every 6 (six) hours Prolonged Acute as needed for pain Pain/Traumatic Injury Indication: Prolonged Acute Pain/Traumatic Injury. pantoprazole (PROTONIX) Take 40 mg by mouth 0 10/02/2020 40 mg EC tablet every morning before breakfast. sennosides (SENOKOT) 8.6 Take 8.6 mg by [...] Gomez AP RN, C.N.P., M.S. [address] [place] [phone] (Wo rk) 06/22/2022 Infusion Oncology Maria Del Rosario Gomez APRN, C.N .P., M.S. [address] [place], [place] [phone] (Mj rk) 06/29/2022 Lab Laboratory Medicine KenoMaria Del Rosario pierre AP RN, C.N.P., M.S. [address] [place], [place] [phone] (Mj godoy) 06/29/2022 Infusion Oncology Maria Del Rosario Gomez APRN, Remy.N .Pamela., M.S. [address] [place], [place] [phone] (Mj godoy) documented as of this encounter Procedures Procedure Name Priority Date/Time Associated Diagnosis Comme nts FL FLUORO LESS THAN Routine 10/01/2020 3:29 PM Re sults for this 1 HOUR QUILTING MACHINE HELPER procedure are i n the results section. documented in this encounter Results FL Fluoro Less Than 1 Hour (10/01/2020 3:29 PM QUILTING MACHINE HELPER) Specimen (Source) Anatomical Location Collection Method / Collectio n Time Received Time / Laterality Volume Narrative ERCP LOS RST - 10/01/2020 3:33 PM QUILTING MACHINE HELPER This exam does not require a radiologist review or interpretation. Please refer to the patient's medical record on this date for clinical details. Stephanie WONG FLUOROSCOPY PROCEDURES Performing Organization Address City/State/ZIP Code Phon e Number ERCP LOS RST documented in this encounter Visit Diagnoses Not on filedocumented in this encounter Care Teams Lard Mixer Relationship Specialty Start Date End Date Elsewhere, Pcp PCP - General Family Medicine 08/12/20 documented as of this encounter
--- OUTSIDE RECORDS SUMMARY | 2022-06-18 16:22 | XMS_ITS | Encounter Summary ---
:1965 Author Organization [facility] Address [address] [place] [id number] Care Team Providers Name Role Phone Elsewhere, Pcp Primary Care Provider Unavailable Reason for Referral Outpatient (Routine) - Closed Specialty Diagnoses / Procedures Referred By Contact Refer red To Contact Infectious Diseases Ankur Card M.D. [facility] [address] [place] [address] Referral ID Status Reason Start Date Expiration Date Visits Requ ested Visits Authorized [id number] Closed 09/23/2020 09/23/2021 1 1 Scheduling Instructions Virtual visit. BOTOMY TECHNICIAN Reason for Visit Outpatient (Routine) - Closed Specialty Diagnoses / Procedures Referred By Contact Refer red To Contact Infectious Diseases Diagnoses Malignant Neoplasm Of Pancreas (HCC) Raymond Rider, [facility] Chanelle, M.S. [address] [place] [address] Referral ID Status Reason Start Date Expiration Date Visits Requ ested Visits Authorized [id number] Closed 09/15/2020 09/15/2021 1 1 Encounter Details Date Type Department Care Team Description 09/23/2020 Office Visit Section of Infectious Ankur Card M.D. Malignant Neoplasm Of Diseases in [place] [address] [address] [facility] Pancreas (HCC) [place], [place] [address] [facility] [address] [place], [place] [phone] (Work) [phone] Social History Tobacco Use Types Packs/Day Years [...] How often do you attend buddhism or restoration services? 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 - 09/23/2020 3:50 PM CST General Infectious Disease Clinic-Hospital Follow-Up Note SUBJECTIVE DEMOGRAPHIC INFORMATION Patient Name: Adam Campbell [facility] Number:[id number] Age: 55 y.o. Birthdate: 1965 Sex: male Service Date/Time: 09/22/20 4:08 PM PHLEBOTOMY TECHNICIAN Referring Provider: Ankur Card M.D., M.B.A. REASON FOR CONSULT We are asked to see Mr. Campbell to give further recommendations for evaluation and management of pancreatic abscess HISTORY OF PRESENT ILLNESS Mr. Campbell is a 55 y.o. 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 Pt had an ERCP on 07/29/20 which revealed severe biliary stricture in the main bile duct (malignant appearing) so biliary sphincterotomy was performed and one metal stent was placed in the CBD. 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 He developed post-ERCP pancretitis 07/30/20. Due to continued pain underwent repeat ERCP on 08/04 found to have stenosis of the biliary stent w/ stone which was removed then stent dilated, pain much improved post-procedure. Went back to OSH ED 08/11/20 for fever and chills, CT indicated pancreatitis w/concerns of early pseudocyst. Transferred to [facility]. 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 He was also found to have left and main portal vein thrombosis. Given ceftriaxone planned for 6 weeks due to possible infected thrombus. Readmitted 09/12/20 due to fevers, abdominal pain, back pain, CT showed Extensive necrotizing peripancreatic fluid collections appear similar in size to the MRI from 09/09/2020. Of note, ceftriaxone was changed to ertapenem due to elevation in liver enzymes. ?? CT AP in 09/22/20 showed Slight interval increase in the known pancreatic uncinate malignancy. Extensive fluid collections associated with necrotizing pancreatitis has shown a mild increase in volume along the medial aspect of the LEFT hemidiaphragm. Chronic occlusion of the splenic vein. He will be on6 weeks antibiotics by 09/25/20. Today he said his chief complaint is mostly fatigue. He can eat some food randomly would get abdominal pain from some of them like fatty foods. Has on and off abdominal pain. He does not have documented fevers, he has 99F temp at night. He does not have diarrhea. ANTI-INFECTIVES: Ceftriaxone 08/14- REVIEW OF SYSTEMS Answers for HPI/ROS submitted by the patient on 09/08/2020 Fatigue: Yes Weight loss of more than 10 pounds: Yes Night sweats: Yes No eye issues: Yes No ENT issues: Yes No heart issues: Yes No respiratory issues: Yes Abdominal (belly) pain or cramping: Yes Heartburn: Yes Nausea: Yes Constipation: Yes Back pain/stiffness: Yes No skin issues: Yes Headache: Yes Change in sexual drive (decreased libido): Yes Excessive daytime sleepiness/tiredness: Yes Little interest or pleasure in doing things: Yes Feeling down, depressed, or hopeless: Yes Feeling nervous, anxious or on edge: Yes Not being able to stop or control worrying: Yes No blood/lymph issues: Yes Frequent urination: Yes Urgency: Yes REVIEW OF HISTORY The following portions of the patient's history were reviewed and updated as appropriate: allergies,current medications, family history, medical history, social history, surgical history and problem list OBJECTIVE Vitals: 09/23/20 1544 Temp: 36.8 ??C PHYSICAL EXAM General: Not in acute distress, Alert, oriented Eyes: No scleral icterus Abdomen: Generalized tenderness, no guarding or distention Lines: Lines, Drains, and Airways Peripherally inserted central catheter PICC Single Lumen 08/15/20 Temporary (non-tunneled, non-implanted) Left 38d 1h DIAGNOSTICS WBC 10 Estimated Creatinine Clearance: 123.5 mL/min (by C-G formula based on SCr of 0.7 mg/dL). ASSESSMENT / PLAN Adam Campbell is a 55 y.o. male with pancreatic adenoCA diagnosed in 07/2020, no chemorad or surgery yet. He had been struggling with post ERCP pancreatitis with necrotizing pancreatitis since this time when it was used to stent his stenosed bile duct. He had Strep anginosis BSI in 08/2020 attributed to the pancreatitis syndrome. On 09/25/20, he will be 6 weeks into therapy. This is usually enough for necrotizing pancreatitis without true evidence of infection. At this point, it might be sterile already. In many cases, stopping antibiotics will be appropriate even without drainage of the necrotic cyst. He will be undergoing chemotherapy soon and we think that the safest way to keep him on antibiotics until at least the first chemotherapy session and everything goes well. Necrosectomy or drainage would help but not urgently needed. Will leave it up to GI to decide timing. There is no absolute contraindication to chemotherapy. We cannot say for certain if he will do well on or off antibiotics. Later on we will decide to observe him off antibiotics. IMPRESSION: 1. Necrotizing pancreatitis 2. pancreatic adenoCA 3. Strep anginosus BSI (resolved) RECOMMENDATIONS: 1. Extend ertapenem for 2 weeks. Continue OPAT monitoring. 2. Check HIV, HCV Ab with next blood draw. 3. Will coordinate care with GI and oncology. 4. Follow up with ID in 2 weeks (phone/virtual visit) ADDENDUM: I discussed the case with oncology and GI. Since we have already given 6 weeks of antibiotics, and there is no definitive time for chemo or GI procedure, we will take this time to observe him off antibiotics. We will stop antibiotics today and observe him off antibiotics. I ordered for PICC pull. I told him about warning signs of sepsis like sustained fevers, yellowing of skin, confusion, altered mental status, intractable vomiting, abdominal pain. Go to ED if that happens. Will see him virtually onFeb 3 to follow up on his status. Oncology and GI agrees with observing off antibiotics. Discussed with ID attending Dr. Bender, Dr. Murray, and Dr. Curiel. I personally spent over half of a total 45 minutes in counseling and discussion with the patient andcoordination of care as described above. Giovani Card M.D., M.B.A. Infectious Diseases Fellow BOTOMY TECHNICIAN documented in this encounter Plan of Treatment Upcoming Encounters Date Type Specialty Care Team Description 06/22/2022 Lab Laboratory Medicine Maria Del Rosario Gomez AP RN, C.N.P., M.S. [address] [place] [phone] (Wo rk) 06/22/2022 Infusion Oncology Maria Del Rosario Gomez APRN, C.N .P., M.S. [address] [place] [phone] (Wo rk) 06/29/2022 Lab Laboratory Medicine Maria Del Rosario Gomez AP RN, C.N.P., M.S. [address] [place] [phone] (Wo rk) 06/29/2022 Infusion Oncology Maria Del Rosario Gomez APRN, Remy.N .P., M.S. [address] [place] [phone] (Wo rk) Scheduled Referrals Name Type Priority Associated Order Schedule Diagnoses Infectious Diseases Outpatient Referral Routine E xpected: office visit 10/07/2020 (clinic) (Approximate), Expires: 09/23/2023 documented as of this encounter Visit Diagnoses Diagnosis Malignant Neoplasm Of Pancreas (HCC) documented in this encounter Care Teams Dermatology Specialist Relationship Specialty Start Date End Date Elsewhere, Pcp PCP - General Family Medicine 08/12/20 documented as of this encounter
--- OUTSIDE RECORDS SUMMARY | 2022-06-18 16:22 | XMS_ITS | Encounter Summary ---
:1965 Author Organization [facility] Address [address] [place] [address] Care Team Providers Name Role Phone Elsewhere, Pcp Primary Care Provider Unavailable Encounter Details Date Type Department Care Team Description 10/01/2020 Ancillary Procedure Department of Radiology [place], [place] mandeep Timmons in [facility] elke Roca [address] [facility] [address] [place] [phone] (Wo rk) Social History Tobacco Use Types [...] often do you attend roman catholic or shinto services? Never 01/15/2021 Do you [...] Date Recorded Male 08/18/2021 2:55 PM MANAGER SHIPPING documented as of this encounter Plan of Treatment Upcoming Encounters Date Type Specialty Care Team Description 06/22/2022 Lab Laboratory Medicine Maria Del Rosario Gomez AP RN, C.N.P., M.S. [address] [place] [phone] (Wo rk) 06/22/2022 Infusion Oncology Maria Del Rosario Gomez APRN, Remy.N .P., M.S. [address] [place] [phone] (Wo rk) 06/29/2022 Lab Laboratory Medicine Maria Del Rosario Gomez AP RN, C.N.P., M.S. [address] [place] [phone] (Wo rk) 06/29/2022 Infusion Oncology Maria Del Rosario Gomez APRN, Remy.N .P., M.S. [address] [place] [phone] (Wo rk) documented as of this encounter Procedures Procedure Name Priority Date/Time Associated Comments Diagnosis INTERPRETATION OF RAD - Routine 10/01/2020 1:10 Result s for OUTSIDE CT ABDOMEN (most inpatients AM MANAGER SHIPPING this procedure AND OR PELVIS and all are in the outpatients) results section. documented in this encounter Results Interpretation of Outside CT Abdomen and or Pelvis (10/01/2020 1:10 AM MANAGER SHIPPING) Anatomical Region Laterality Modality Abdomen, Pelvis, Abdominal RST LOS, Abdominal ARZ LOS, N/A Computed Tomography Abdominal FLA LOS, Other Specimen (Source) Anatomical Collection Method Collection Time Re ceived Time Location / / Volume Laterality 10/01/2020 1:16 AM MANAGER SHIPPING Impressions 10/01/2020 5:04 AM MANAGER SHIPPING 1. Extensive fluid collections associated with necrotizing pancreatitis and known pancreatic malignancy are similar compared to CT 09/22/2020. 2. 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 Narrative 10/01/2020 5:04 AM MANAGER SHIPPING EXAM: ??INTERPRETATION OF OUTSIDE CT ABDOMEN AND OR PELVIS COMPARISON: ??[facility] CT 09/22/2020 FINDINGS: ?? Interpretation of an [...] CT ABDOM EN AND OR PELVIS COMPARISON: [facility] CT 09/22/2020 FINDINGS: Interpretation of an outside [...] compre ssive atelectasis. IMPRESSION: 1. Extensive fluid client technical support associate d with necrotizing pancreatitis and known pancreatic malignancy are similar compared to CT 09/22/2020. 2. 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 Adam Novoa M.D. IMG CT PROCEDURES documented in this encounter Visit Diagnoses Not on filedocumented in this encounter Care Teams Polisher Hand Relationship Specialty Start Date End Date Elsewhere, Pcp PCP - General Family Medicine 08/12/20 documented as of this encounter
--- OUTSIDE RECORDS SUMMARY | 2022-06-18 16:22 | XMS_ITS | Encounter Summary ---
:1965 Author Organization [facility] Address [address] [place] [address] Care Team Providers Name Role Phone Elsewhere, Pcp Primary Care Provider Unavailable Reason for Visit Reason Onset Date Comments Outpatient COVID-19 Testing 09/09/2020 Encounter Details Date Type Department Care Team Description 09/09/2020 External Outreach Department of [place], Encounter For Laboratory Medicine Lola Her APRN, Scr eening For Other and Pathology, FOOD SPECIALIST Viral Disease [facility], (COVID-19 ) (Primary in [facility]) [place] [address] [place] [address] Social History Tobacco Use Types Packs/Day Years [...] How often do you attend anabaptism or confucianist services? Never 01/15/2021 Do you [...] Date Recorded Male 08/18/2021 2:55 PM ASSOCIATE PROFESSOR COMPUTER SCIENCE documented as of this encounter Progress Notes Dilcia Sarmiento - 09/09/2020 11:15 AM CST Encounter created for infectious disease screening. CIATE PROFESSOR COMPUTER SCIENCE documented in this encounter Plan of Treatment Upcoming Encounters Date Type Specialty Care Team Description 06/22/2022 Lab Laboratory Medicine Maria Del Rosario Gomez AP RN, C.N.P., M.S. [address] [place] [address] [phone] (Wo rk) 06/22/2022 Infusion Oncology Maria Del Rosario Gomez APRN, C.N .P., M.S. [address] [place] [address] [phone] (Wo rk) 06/29/2022 Lab Laboratory Medicine Maria Del Rosario Gomez AP RN, C.N.P., M.S. [address] [place] [address] [phone] (Wo rk) 06/29/2022 Infusion Oncology Maria Del Rosario Gomez APRN, C.N .P., M.S. [address] [place] [address] [phone] (Wo rk) documented as of this encounter Procedures Procedure Name Priority Date/Time Associated Diagnosis Comme nts SARS CORONAVIRUS-2, Routine 09/09/2020 11:18 AM Encounter For Results for this PCR ASSOCIATE PROFESSOR COMPUTER SCIENCE Screening For Other procedur e are in Viral Diseases the results (COVID-19) section. documented in this encounter Results SARS Coronavirus-2, PCR Asymptomatic (09/09/2020 11:18 AM ASSOCIATE PROFESSOR COMPUTER SCIENCE) [facility] Method Time Signature SARS Swab, 09/09/2020 DTL Coronavirus-2 Nasopharynx 10:45 PM Source ASSOCIATE PROFESSOR COMPUTER SCIENCE SARS Undetected Undetected 09/09/2020 DTL Coronavirus-2 10:45 PM , PCR ASSOCIATE PROFESSOR COMPUTER SCIENCE Comment: SARS-CoV-2 RNA absent. This result does not rule out COVID-19 in the patient, as the sensitivity of the test depends o n the timing of the specimen collection and quality of the specimen. Result should be correlated with patient's history and clinical presentat ion. ----ADDITIONAL INFORMATION---- This test was developed and its performa nce characteristics determined by [facility] in a manner co nsistent with CLIA requirements. Independent review by the U.S. Food and Drug Administration is pending. Visit the CDC website: https://www.cdc.gov/coronavirus/ ?? for the most recent guidelines on [place] virus testing. Fact Sheet for Healthcare Providers: (https://www.[employer]/it-mmfil es/ Provider_Fact_Sheet_for_[facility]_COVI D-19.pdf) Fact Sheet for Patients: (https://www.[employer]/it-mmfil es/ Patient_Fact_Sheet_for_COVID-19.pdf) Specimen Anatomical Collection Method Collection Time Receive d Time (Source) Location / / Volume Laterality Varies 09/09/2020 11:18 09/09/2020 (Nasopharynx) AM ASSOCIATE PROFESSOR COMPUTER SCIENCE 12:25 PM ASSOCIATE PROFESSOR COMPUTER SCIENCE Lola Marroquin APRN, FOOD SPECIALIST LAB MICROBIOLOGY - GENER AL ORDERABLES Performing Organization Address City/State/ZIP Code Phon e Number [facility] - [address] [place], [place] [address] [facility] [place] [address] Laboratories-[facility] [address] documented in this encounter Visit Diagnoses Diagnosis Encounter For Screening For Other Viral Diseases (COVID-19) - Primary documented in this encounter Additional Health Concerns Infection Onset Date Last Indicated Resolved Time COVID19 Pending 09/09/2020 09/09/2020 09/09/2020 10:46 PM ASSOCIATE PROFESSOR COMPUTER SCIENCE documented as of this encounter Care Teams Dress Operator Relationship Specialty Start Date End Date Elsewhere, Pcp PCP - General Family Medicine 08/12/20 documented as of this encounter
--- OUTSIDE RECORDS SUMMARY | 2022-06-18 16:22 | XMS_ITS | Encounter Summary ---
:1965 Author Organization [facility] Address [address] [place] [address] Care Team Providers Name Role Phone Elsewhere, Pcp Primary Care Provider Unavailable Reason for Visit Reason Comments Med Refill Encounter Details Date Type Department Care Team Description 09/28/2020 Clinical Communication Division of Gio Meeks Hepatobiliary and Tori Sanchez Pancreas Surgery in [place], [place] [address] [facility] [place] [address] [place] [phone] Social History Tobacco Use Types Packs/Day Years [...] How often do you attend moravian or pentecostalism services? Never 01/15/2021 Do you [...] at Date Recorded Male 08/18/2021 2:55 PM HEBREW PROFESSOR documented as of this encounter Miscellaneous Notes Telephone Encounter - Marycruz Thurston - 10/01/2020 4:20 PM CST FYI, he was admitted to hospital today. EW PROFESSOR Telephone Encounter - Tori Meeks P.A.-C. - 09/28/2020 9:19 AM HEBREW PROFESSOR Marycruz- see below. EW PROFESSOR Telephone Encounter - Tori Meeks P.A.-C. - 09/28/2020 9:[address] Curiel, Would you be willing to continue prescribing for him? He isn't following with us any longer at this point. He has been using the oxycodone appropriately since diagnosis. Thank you! Tori EW PROFESSOR Telephone Encounter - Marycruz Thurston - 09/28/2020 9:06 AM CST Tori, Patient calling asking if you could give him a refill on oxycodone and protonix. If there is any issue, we need to let him know. Same pharmacy as previous. EW PROFESSOR documented in this encounter Plan of Treatment Upcoming Encounters Date Type Specialty Care Team Description 06/22/2022 Lab Laboratory Medicine Maria Del Rosario Gomez AP RN, C.N.P., M.S. [address] [place] [address] [phone] (Wo rk) 06/22/2022 Infusion Oncology Maria Del Rosario Gomez APRN, C.N .P., M.S. [address] [place] [address] [phone] (Wo rk) 06/29/2022 Lab Laboratory Medicine Maria Del Rosario Gomez AP RN, C.N.P., M.S. [address] [place] [address] [phone] (Wo rk) 06/29/2022 Infusion Oncology Maria Del Rosario Gomez APRN, C.N .P., M.S. [address] [place] [address] [phone] (Wo rk) documented as of this encounter Visit Diagnoses Not on filedocumented in this encounter Additional Health Concerns Infection Onset Date Last Indicated Resolved Time COVID19 Pending 10/01/2020 10/01/2020 10/01/2020 1:58 AM HEBREW PROFESSOR documented as of this encounter Care Teams Manufacturing Team Leader Relationship Specialty Start Date End Date Elsewhere, Pcp PCP - General Family Medicine 08/12/20 documented as of this encounter
--- OUTSIDE RECORDS SUMMARY | 2022-06-18 16:22 | XMS_ITS | Encounter Summary ---
:1965 Author Organization [facility] Address [address] [place] [address] Care Team Providers Name Role Phone Elsewhere, Pcp Primary Care Provider Unavailable Reason for Visit Reason Comments OPAT Intervention Encounter Details Date Type Department Care Team Description 09/17/2020 Clinical Communication Section of Irene Jimenez (Intervention) Infectious Diseases M, R.N. in [place], [address] [place] [address] [place] [phone] [place], [place] [phone] (Work) [phone] Social History Tobacco Use Types Packs/Day Years [...] at Date Recorded Male 08/18/2021 2:55 PM GROUP CONTROLLER documented as of this encounter Miscellaneous Notes Telephone Encounter - Jany Eason PharmRiazD., R.Ph. - 09/17/2020 1:05 PM GROUP CONTROLLER Pertinent labs and antimicrobial regimen as indicated per chart review were assessed. Patient is on Ertapenem for Intraabdominal infection . Creatinine with eGFR abnormality is mild. SCr 0.7 mg/dL improved from previously. Lab abnormality evaluated and unlikely to be related to Ertapenem per pharmacist evaluation. The dose of the antimicrobial(s) is not affected by the lab abnormality. Continue with the current antimicrobials and monitoring plan at this time. P CONTROLLER Telephone Encounter - Irene Jimenez R.N. - 09/17/2020 12:30 PM CST OPAT NOTE Infusion Provider: [facility], phone: [phone], fax: [phone] Antimicrobial(s) currently prescribed: See Med List Hyperlink in note Tentative stop date: Yet to be determined. ID appointment on 09/23/20. Lab results from 09/17/2020 are viewable in the MCR record. Interpretation and action: Alk phos and WBC continue to improvecontinues to improve. Creatinine will be sent for review. P CONTROLLER documented in this encounter Plan of Treatment Upcoming Encounters Date Type Specialty Care Team Description 06/22/2022 Lab Laboratory Medicine Maria Del Rosario Gomez AP RN, C.N.P., M.S. [address] [place] [address] [phone] (Mj godoy) 06/22/2022 Infusion Oncology Maria Del Rosario Gomez APRN, C.N .P., M.S. [address] [place] [address] [phone] (Mj godoy) 06/29/2022 Lab Laboratory Medicine Maria Del Rosario Gomez AP RN, C.N.P., M.S. [address] [place], [place] [phone] (Wo rk) 06/29/2022 Infusion Oncology Maria Del Rosario Gomez APRN, C.N .P., M.S. [address] [place], [place] [phone] (Wo rk) documented as of this encounter Procedures Procedure Name Priority Date/Time Associated Comments Diagnosis CBC WITHOUT Routine 09/17/2020 9:35 Results for this DIFFERENTIAL, B AM GROUP CONTROLLER procedure ar e in the results section. CBC WITH DIFFERENTIAL, B Routine 09/17/2020 9:35 Results for this AM GROUP CONTROLLER procedure are i n the results section. HEMOGLOBIN, B Routine 09/17/2020 9:35 Results for this AM GROUP CONTROLLER procedure are i n the results section. ALANINE AMINOTRANSFERASE Routine 09/17/2020 9:35 Results for this (ALT), S/P AM GROUP CONTROLLER procedure are i n the results section. ASPARTATE Routine 09/17/2020 9:35 Results for this AMINOTRANSFERASE (AST), AM GROUP CONTROLLER proc edure are in S/P the results section. ALKALINE PHOSPHATASE, Routine 09/17/2020 9:35 Res ults for this S/P AM GROUP CONTROLLER procedure are i n the results section. CREATININE WITH EGFR, Routine 09/17/2020 9:35 Res ults for this S/P AM GROUP CONTROLLER procedure are i n the results section. documented in this encounter Results ALT (Alanine Aminotransferase) (09/17/2020 9:35 AM GROUP CONTROLLER) athologist Signature EXT ALT 37 4 - 50 OTHER (SPECIFY IN CARD PROCESSING CLERK) Specimen (Source) Anatomical Location Collection Method / Collectio n Time Received Time / Laterality Volume Blood (Blood, Venous) Unknown Provider LAB BLOOD ADD-ON Performing Organization Address City/State/ZIP Code Phon e Number OTHER (SPECIFY IN CARD PROCESSING CLERK) OTHER (SPECIFY IN CARD PROCESSING CLERK) N/A AST (Aspartate Aminotransferase) (09/17/2020 9:35 AM GROUP CONTROLLER) athologist Signature EXT AST 23 OTHER (SPECIFY IN CARD PROCESSING CLERK) Specimen (Source) Anatomical Location Collection Method / Collectio n Time Received Time / Laterality Volume Blood (Blood, Venous) Unknown Provider LAB BLOOD ADD-ON Performing Organization Address City/[facility]/ZIP [facility] Phon e Number OTHER (SPECIFY IN CARD PROCESSING CLERK) OTHER (SPECIFY IN CARD PROCESSING CLERK) N/A (ABNORMAL) Alkaline Phosphatase (09/17/2020 9:35 AM GROUP CONTROLLER) Analysis Performed At [facility] Time Signature EXT Alkaline 281 (A) 40 - 150 OTHER Phosphatase (SPECIFY IN CARD PROCESSING CLERK) Specimen (Source) Anatomical Location Collection Method / Collectio n Time Received Time / Laterality Volume Blood (Blood, Venous) Unknown Provider LAB BLOOD ADD-ON Performing Organization Address [facility] Phon e Number OTHER (SPECIFY IN CARD PROCESSING CLERK) OTHER (SPECIFY IN CARD PROCESSING CLERK) N/A Creatinine with Estimated GFR (09/17/2020 9:35 AM GROUP CONTROLLER) athologist Signature EXT Creatinine 0.7 mg/dL OTHER (SPECIFY IN CARD PROCESSING CLERK) Specimen (Source) Anatomical Location Collection Method / Collectio n Time Received Time / Laterality Volume Blood (Blood, Venous) Unknown Provider LAB BLOOD ADD-ON Performing Organization Address [facility] Phon e Number OTHER (SPECIFY IN CARD PROCESSING CLERK) OTHER (SPECIFY IN CARD PROCESSING CLERK) N/A CBC without Differential (09/17/2020 9:35 AM GROUP CONTROLLER) P athologist Signature EXT White Blood 10.3 OTHER (SPECIFY Cell (WBC) IN CARD PROCESSING CLERK) Count Specimen (Source) Anatomical Location Collection Method / Collectio n Time Received Time / Laterality Volume Blood (Blood, Venous) Unknown Provider LAB BLOOD ADD-ON Performing Organization Address City/[facility] Phon e Number OTHER (SPECIFY IN CARD PROCESSING CLERK) OTHER (SPECIFY IN CARD PROCESSING CLERK) N/A CBC with Differential, Blood (09/17/2020 9:35 AM GROUP CONTROLLER) P athologist Signature EXT Platelet 514 OTHER (SPECIFY Count IN CARD PROCESSING CLERK) EXT Absolute 7,490 OTHER (SPECIFY Neutrophils IN CARD PROCESSING CLERK) Specimen (Source) Anatomical Location Collection Method / Collectio n Time Received Time / Laterality Volume Blood (Blood, Venous) Unknown Provider LAB BLOOD ADD-ON Performing Organization Address City/[facility] Phon e Number OTHER (SPECIFY IN CARD PROCESSING CLERK) OTHER (SPECIFY IN CARD PROCESSING CLERK) N/A (ABNORMAL) Hemoglobin (09/17/2020 9:35 AM GROUP CONTROLLER) Analysis Performed At Patho logist Time Signature EXT Hemoglobin 10.8 (A) 13.5 - OTHER 17.5 (SPECIFY IN CARD PROCESSING CLERK) Specimen (Source) Anatomical Location Collection Method / Collectio n Time Received Time / Laterality Volume Blood (Blood, Venous) Unknown Provider LAB BLOOD ADD-ON Performing Organization Address City/State/[facility] Code Phon e Number OTHER (SPECIFY IN CARD PROCESSING CLERK) OTHER (SPECIFY IN CARD PROCESSING CLERK) N/A documented in this encounter Visit Diagnoses Not on filedocumented in this encounter Care Teams Flake Miller [employer] Relationship Specialty Start Date End Date Elsewhere, Pcp PCP - General Family Medicine 08/12/20 documented as of this encounter
--- OUTSIDE RECORDS SUMMARY | 2022-06-18 16:22 | XMS_ITS | Encounter Summary ---
:1965 Author Organization [facility] Address [address] [place] [address] Care Team Providers Name Role Phone Elsewhere, Pcp Primary Care Provider Unavailable Reason for Referral Outpatient (Routine) - Closed Specialty Diagnoses / Procedures Referred By Contact Refer red To Contact Infectious Diseases Diagnoses Malignant Neoplasm [facility] [address] [place] [address] Referral ID Status Reason Start Date Expiration Date Visits Requ ested Visits Authorized [id number] Closed 09/15/2020 09/15/2021 1 1 PRESS OPERATOR Reason for Visit Reason Comments Post Hospital Follow-up OPAT Encounter Details Date Type Department Care Team Description 09/15/2020 Clinical Communication [facility] JAKE R[facility], [facility] 200 [facility] Raymond Wilks M.D., Follow-up; OPAT [place], [place] [phone] [place] [phone] Social History Tobacco Use Types Packs/Day Years [...] How often do you attend synagogue or gnosticist services? 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 PRESS OPERATOR documented in this encounter Plan of Treatment Upcoming Encounters Date Type Specialty Care Team Description 06/22/2022 Lab Laboratory Medicine Maria Del Rosario Gomez AP RN, C.N.P., M.S. [address] [place] [address] [phone] (Mj godoy) 06/22/2022 Infusion Oncology Maria Del Rosario Gomez APRN, C.N .P., M.S. [address] [place] [address] [phone] (Mj godoy) 06/29/2022 Lab Laboratory Medicine Maria Del Rosario Gomez AP RN, C.N.P., M.S. [address] [place] [address] [phone] (Mj godoy) 06/29/2022 Infusion Oncology Maria Del Rosario Gomez APRN, C.N .P., M.S. [address] [place] [address] [phone] (Mj godoy) Scheduled Referrals Name Type Priority Associated Order Schedule Diagnoses Infectious Diseases Outpatient Referral Routine Malignant Neop lasm Expected: office visit Of Pancreas (HCC) 09/23/2020 (clinic) (Approximate), Expires: 09/15/2023 documented as of this encounter Visit Diagnoses Diagnosis Malignant Neoplasm Of Pancreas (HCC) - P rimary documented in this encounter Care Teams Binding Printer Relationship Specialty Start Date End Date Elsewhere, Pcp PCP - General Family Medicine 08/12/20 documented as of this encounter
--- OUTSIDE RECORDS SUMMARY | 2022-06-18 16:22 | XMS_ITS | Encounter Summary ---
:[address] [facility] Address [address] [place] [id number] Care Team Providers Name Role Phone Elsewhere, Pcp Primary Care Provider Unavailable Reason for Visit Reason Comments OPAT Intervention Encounter Details Date Type Department Care Team Description 09/09/2020 Clinical Communication Section of Irene Jimenez (Intervention) Infectious Diseases M, R.N. in [place], [address] [place] [address] [place] [id number] [place], [place] [phone] (Work) [phone] Social History Tobacco Use Types Packs/Day Years [...] How often do you attend buddhist or orthodox services? Never 01/15/2021 Do you [...] Date Recorded Male 08/18/2021 2:55 PM PUBLIC SAFETY OFFICER documented as of this encounter Miscellaneous Notes Telephone Encounter - Lola Luz R.N. - 09/10/2020 8:39 AM PUBLIC SAFETY OFFICER [facility] nurse, Gina, returned my call. She states they can draw labs on 09/12/20, for repeat LFTs. She confirms she received the order yesterday and doesn't need anything further from us. Gina is seeing the patient today, so she will let him and his know. IC SAFETY OFFICER Telephone Encounter - Lola Luz R.N. - 09/09/2020 3:18 PM PUBLIC SAFETY OFFICER 1) Patient switching from ceftriaxone to ertapenem (see pharmacist note). Patient would like first dose at [facility]. I spoke with Dexter, the general house worker at [facility]. Their ITC will be closing at 4:30 pm today, but ertapenem can be given on the medical floor if the ITC is closed. I faxed medication order, blood culture orders, ID notes, and PICC insertion information to [facility] at [phone]. I instructed them to call patient on his 's, Shaniqua Campbell's, cell phone to schedule. I called Shaniqua and let her know that [facility] should be contacting her. I gave her their contact information, in case she doesn't hear from them. I spoke to Leesa, [facility] pharmacist, to let him know the plan and I faxed the ertapenem order to [facility]. Shaniqua had questions about how to administer the ertapenem and Leesa agreed to call her to answer her questions. [facility], [place], [place], Outpatient Infusion Center (phone [phone], fax [phone]). If no one answers at [facility], call [facility] number [phone] and ask for general house worker. 2) Blood cultures x 2 today, peripheral and through PICC. This will be done at [facility] today. I faxed the order (see above). 3) Repeat LFT's on 09/12/20. I am hoping homecare nurse will be able to go out on a Monday, as these labs are medically necessary. The homecare office is closed, but I left a voicemail message and also faxed the lab order. I asked that they call back either way, so that we can arrange labs to be done elsewhere if they are not able. I also told patient's , Shaniqua, that I would call her back to let her know who will draw labs on Monday. [facility] (phone [phone], fax [phone]) IC SAFETY OFFICER Telephone Encounter - Sabas Sloan, Pharm.D. - 09/09/2020 3:14 PM PUBLIC SAFETY OFFICER Pertinent labs and antimicrobial regimen as indicated per chart review were assessed. Patient is on Ceftriaxone for Bacteremia . ALT, AST and ALK Phos abnormality is severe. ALT has increased to 215, AST to 200 and Alk phos to 554 on labs from 09/09. Additionally, the WBC is 11.9 (slightly up from 09/02) and the patient's reports that he had a fever of 100.6 that resolved with acetaminophen use last evening. He also reports some fatigue and chills. I called and discussed the case with Dr. Norris Fuentes of the [facility] ID service. Given the increase inLFTs and the read of the [facility] today there is reason to change the antimicrobials to be sure that theincrease is not secondary to the ceftriaxone. As such, we will change the ceftriaxone to ertapenem 1g IV daily starting today (09/09/20) and continuing through 09/24 as previously planned. The first dose will need to be given in the [facility] in [place], [place] given that he has not received this medication before. I will put in an order for the ertapenem x 1 dose and have the OPAT RN team fax it to the [facility]. Additionally, I will call and provide a verbal order for the switch from ceftriaxone to e rtapenem to [facility]. He also will need to have blood cultures drawn from both the periphery and the line today while at the [facility]. I will ask the OPAT RN to put these orders in. Lastly, I would like to have the LFTs (ALT, AST, and Alk Phos) repeated on 09/12. I will notify the [facility] ID team that these are being repeated so that they can follow-up that day as Dr. Fuentes requested. I instructed the patient's (Shaniqua) that if the patient were to experience any further fever, chills, or sweats that they should proceed to the local ED. She verbalized understanding of the information provided and had no further questions or concerns at this time. In summary: 1) Change ceftriaxone to ertapenem (first dose in [facility]) 2) Obtain blood cultures on 09/09/20 3) Repeat LFTs on 09/12/20 IC SAFETY OFFICER Telephone Encounter - Irene Jimenez R.N. - 09/09/2020 2:19 PM CST OPAT NOTE Infusion Provider: [facility], phone: [phone], fax: [phone] Antimicrobial(s) currently prescribed: See Med List Hyperlink in note Firm stop date: 09/24/20. PICC can be removed. Lab results from 09/09/2020 are viewable in the MCR record. Interpretation and action: Conor calls from I regarding drop of Hemoglobin and elevation of ALT and Alk phos. I called and spoke with patient's . WBC also up from last draw. Patient's states that patient did have a temperature of 100.6 last evening. He took tylenol and it was down to 99.6. states that patient has not been taking tylenol previous to this. Patient also had chills. Patient is using no alcohol. Patient has severe back pain. states he has pancreatitis and once this clears he will need to start his chemotherapy. I informed the labs will be reviewed and she would like a call from the pharmacist after reviewing. IC SAFETY OFFICER documented in this encounter Plan of Treatment Upcoming Encounters Date Type Specialty Care Team Description 06/22/2022 Lab Laboratory Medicine Maria Del Rosario Gomez AP RN, C.N.P., M.S. [address] [place] [address] [phone] ([place]) 06/22/2022 Infusion Oncology Maria Del Rosario Gomez APRN, C.N .P., M.S. [address] [place] [address] [phone] ([place]) 06/29/2022 Lab Laboratory Medicine Maria Del Rosario Gomez AP RN, C.N.P., M.S. [address] [place] [address] [phone] ([place]) 06/29/2022 Infusion Oncology Maria Del Rosario Gomez APRN, C.N .P., M.S. 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
--- OUTSIDE RECORDS SUMMARY | 2022-06-18 16:22 | XMS_ITS | Encounter Summary ---
:1965 Author Organization [facility] Address [address] [place] [address] Care Team Providers Name Role Phone Elsewhere, Pcp Primary Care Provider Unavailable Reason for Referral Outpatient (Routine) - Closed Specialty Diagnoses / Procedures Referred By Contact Refer red To Contact Oncology Deobrah Murray M.B.B.S . [facility] [address] [place] [address] Referral ID Status Reason Start Date Expiration Date Visits Requ ested Visits Authorized [id number] Closed 09/23/2020 09/23/2021 1 1 ER LATHE SET UP OPERATOR Outpatient (Routine) - Closed Specialty Diagnoses / Procedures Referred By Contact Refer red To Contact Nutrition Diagnoses Malignant Neoplasm Of Pancreas (HCC) Pancreatitis Post Endoscopic Retrograde Cholangiopancreatography (HCC) Abscess Intra Abdominal (HCC) Deborah Murray, [facility] M.B.B.S. [address] [place] [address] Referral ID Status Reason Start Date Expiration Date Visits Requ ested Visits Authorized [id number] Closed 09/23/2020 09/23/2021 1 1 Scheduling Instructions Today if possible. Virtual is ok ER LATHE SET UP OPERATOR Reason for Visit Outpatient (Routine) - Closed Specialty Diagnoses / Procedures Referred By Referred To Contact Contact Medical Oncology / Diagnoses Malignant Neoplasm Of Pancreas (HCC) Pancreatitis Post Endoscopic Retrograde Cholangiopancreatography (HCC) Reji Travis, [facility] Oncology Chanelle, M.S. [address] [place] [address] Referral ID Status Reason Start Date Expiration Date Visits Requ ested Visits Authorized [id number] Closed 08/19/2020 08/19/2021 1 1 Encounter Details Date Type Department Care Team Description 09/23/2020 Comprehensive Visit Department of Deborah Murray Abscess Intra Abdominal (HCC) (Primary Dx); Oncology in [facility], Malignant Neopl asm Of Pancreas (HCC); Moraima Perdomo Pancreatitis Post Endoscopic Retrograde Cholangiopancreatography (HCC) [place] [address] [facility] [address] [place] [phone] Social History Tobacco Use Types Packs/Day Years [...] How often do you attend sabianist or uatsdin services? Never 01/15/2021 Do you [...] at Date Recorded Male 08/18/2021 2:55 PM TRACER LATHE SET UP OPERATOR documented as of this encounter Last Filed Vital Signs Vital Sign Reading Time Taken Comments Blood Pressure 92/64 09/23/2020 9:50 AM TRACER LATHE SET UP OPERATOR Pulse 99 09/23/2020 9:50 AM TRACER LATHE SET UP OPERATOR Temperature 35.9 ??C (96.6 ??F) 09/23/2020 9:50 AM TRACER LATHE SET UP OPERATOR Respiratory Rate 20 09/23/2020 9:50 AM TRACER LATHE SET UP OPERATOR Oxygen Saturation 98% 09/23/2020 9:50 AM TRACER LATHE SET UP OPERATOR Inhaled Oxygen Concentration - - Weight 74.1 kg (163 lb 5.8 oz) 09/23/2020 9:50 AM with shoes TRACER LATHE SET UP OPERATOR Height 178.9 cm (5' 10.43) 09/23/2020 9:50 AM TRACER LATHE SET UP OPERATOR Body Mass Index 23.15 09/23/2020 9:50 AM TRACER LATHE SET UP OPERATOR documented in this encounter Consult Notes Deborah Murray M.B.B.S. - 09/23/2020 10:00 AM CST CHIEF COMPLAINT/PURPOSE OF VISIT: Borderline resectable pancreas uncinate cancer. Recovering from pancreatitis and on treatment for peripancreatic abscess. HISTORY OF PRESENT ILLNESS: Mr. Campbell is a .55 y.o. male with borderline resectable pancreas cancer with pancreatitis and peripancreatic abscess presented for evaluation and management. Patient presented with obstructive jaundiceand presented to local ED on July 26, [address] scan showed a 2.6 cm ill-defined mass in the pancreas head suspicious for malignancy. 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 He also had a EUS with biopsy of the pancreas head mass which showed adenocarcinoma. The biopsy specimen had not been reviewed at [facility] at the time of this consultation. There was unfortunately complicated by post ERCP pancreatitis that he was managed with IV fluid and pain medication. His pain continued to worsen and a repeat ERCP on August 04, 2020 showed stenosis of the biliary stent and says sludge/stone. The stenosis was Re stented. He was then hospitalized on 2 occasion from August 12, 2020to August 15, 2020 and September 12, 2020 to September 15, 2020 for management of Streptococcus anginosusbacteremia and peripancreatic abscess. During the recent hospitalization, patient was treated with IV antibiotic but the fluid collection in the abdomen was not mature for drainage. He was then transition to IV ertapenem daily administered by patient himself/family since discharge on September 15, 2020. Since discharge, patient noted improvement in abdominal pain and he was able to gradually advance his diet. He was able to eat a subway sandwich with Ham and mayonnaise recently. He reported that he may have lost 1-2 lb although his appetite seem to start to bulk picker over the last few days. His energy level remains poor although he is ADL independent. He does take 2 cat naps during the day of about 30minutes. He denies any fever, chills and rigor. His ECOG performance status is 2. A summary of the oncologic history so far include Oncology History Malignant Neoplasm Of Pancreas (HCC) [...] had been hospitalized and on iv antibiotics. REVIEW OF SYSTEMS Pertinent items are noted in HPI; all other review of systems were negative. Rate your distress: 8 CURRENT MEDICATIONS: Reviewed and updated in the EMR. ALLERGIES: Reviewed and updated in the EMR. PAST MEDICAL HISTORY: Past Medical History: Diagnosis Date ??? Adjustment [...] left, treated with embolization of gonadal vein SURGICAL HISTORY: Past Surgical History: Procedure Laterality Date ??? BREAST CYST EXCISION Right ??? CARPAL TUNNEL RELEASE ??? CIRCUMCISION N/A Circumcision ??? IR GONADAL VEIN EMBOLIZATION Left ??? TONSILLECTOMY AND ADENOIDECTOMY N/A Tonsillectomy and adenoidectomy ??? TRIGGER FINGER RELEASE ??? VASECTOMY N/A Vasectomy SOCIAL HISTORY: Social History Socioeconomic History ??? Marital status: Spouse name: Shaniqua ??? Number of children: 2 ??? Years of education: Not on file ??? Highest education level: 11th grade Occupational History ??? 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 Financial resource strain: Not very hard ??? Food insecurity Worry: Never true Inability: Never true ??? Transportation needs Medical: No Non-medical: No Tobacco Use ??? Smoking status: Never Smoker ??? Smokeless tobacco: Never Used Substance and Sexual Activity ??? Alcohol use: Never Frequency: Never ??? Drug use: Never ??? Sexual activity: Not on file Lifestyle ??? Physical activity Days per week: 0 days Minutes per session: 0 min ??? Stress: Not at all Relationships ??? Social connections Talks on phone: More than three times a week Gets together: Never Attends uatsdin service: Never Active member of club or organization: No Attends meetings of clubs or organizations: Never Relationship status: ??? Intimate partner violence Fear of current or ex partner: Not on file Emotionally abused: Not on file Physically abused: Not on file Forced sexual activity: Not on file Other Topics Concern ??? Not on file Social History Narrative ??? Not on file FAMILY HISTORY: Family History Problem Relation Age of Onset ??? Lung cancer Maternal Grandmother VITAL SIGNS: Vitals: 09/23/20 0950 BP: 92/64 BP Location: Right arm Patient Position: Sitting Cuff Size: Regular Pulse: 99 Resp: 20 Temp: (!) 35.9 ??C TempSrc: Tympanic SpO2: 98% Weight: 74.1 kg Height: 178.9 cm PHYSICAL EXAM Vitals signs reviewed. Constitutional General: He is not in acute distress. Appearance: He is well-developed. He is not toxic-appearing. Comments: Thin appearing Eyes General: No scleral icterus. Conjunctiva/sclera: Conjunctivae normal. Pupils: Pupils are equal, round, and reactive to light. Cardiovascular Rate and Rhythm: Normal rate and regular rhythm. Heart sounds: Normal heart sounds. Pulmonary Effort: Pulmonary effort is normal. Breath sounds: Normal breath sounds. Abdominal General: Bowel sounds are normal. Palpations: Abdomen is soft. There is no mass. Tenderness: There is abdominal tenderness (Mild tenderness over left upper quadrant). There is no guarding. Musculoskeletal Right lower leg: No edema. Left [...] Pancreatitis Post Endoscopic Retrograde Cholangiopancreatography (HCC) #3 Abscess Intra Abdominal (HCC) Mr. Campbell is a .55 y.o. male with localized borderline resectable pancreas uncinate cancer who is currently being treated for post ERCP pancreatitis and peripancreatic abscess. Patient is currently on IV antibiotic and we will see Infectious Disease later today. His last blood test was on September 17, 2020 which showed improvement of his WBC but still elevated at 10,000. He denies any symptoms of acutesepsis. He has also been on Lovenox for nonocclusive portal vein thrombosis. His ECOG performance status is 2 and his energy level remains poor. On a positive note, his abdominal pain has almost resolved and he is able to advanced to some regular diet. I reviewed the diagnosis, staging and management plan with him and his . He had met with Dr. Travis in early August assessed as borderline resectable but not a surgical candidate at the time due to pancreatitis and active infection. A neoadjuvant approach including systemic chemotherapy concurrent chemoradiation were discussed with the patient and . It is encouraging that patient continues to improved from appetite and pain point of view. I expect his energy level and weight to start to increase over the next few weeks as long as his pancreatitis and abscess continues to improved. I would defer to Infectious Disease to determine the best approachto manage the abscess. Patient was still be eligible for systemic chemotherapy if patient requires suppressive antibiotic and deemed to have an acceptable risk of acute flare. His repeat CT scan yesterday on September 22, 2020 showed slight interval increase in the pancreas uncinate malignancy and extensive fluid collection associated with necrotizing pancreatitis. 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 There is no evidence of metastatic disease. He reports feeling about 30% of his baseline, which he used to be an avid runner. I discussed about the increased risk for recurrence of infection, nausea, vomiting and anorexia during systemic chemotherapy. Once Infectious Disease assess that the patient is reasonable to proceed with systemic chemothe rapy, I would recommend proceeding with gemcitabine monotherapy and intensifying to gemcitabine plusAbraxane as tolerated. We then reconsult Dr. Travis and Radiation Oncology accordingly as treatment progressed. Patient and expressed understanding of the plan outlined above. We will plan to re-evaluate thepatient in 2 weeks with routine blood tests. PATIENT EDUCATION Ready to learn, no apparent learning barriers were identified; learning preferences include listening. Explained diagnosis and treatment plan; patient expressed understanding of the content. ADMINISTRATIVE BILLING I personally spent over half of a total 60 minutes face to face with the patient in counseling and discussion and/or coordination of care as described above. ER LATHE SET UP OPERATOR documented in this encounter Plan of Treatment Upcoming Encounters Date Type Specialty Care Team Description 06/22/2022 Lab Laboratory Medicine Maria Del Rosario Gomez AP RN, C.N.P., M.S. [address] [place] [phone] ([place]) 06/22/2022 Infusion Oncology Maria Del Rosario Gomez APRN, C.N .P., M.S. [address] [place] [phone] ([place]) 06/29/2022 Lab Laboratory Medicine Maria Del Rosario Gomez AP RN, C.N.P., M.S. [address] [place] [phone] ([place]) 06/29/2022 Infusion Oncology Maria Del Rosario Goemz APRN, C.N .P., M.S. [address] [place] [phone] ([place]) Scheduled Referrals Name Type Priority Associated Diagnoses Order S chedule Nutrition - Outpatient Routine Malignant Neoplasm Of Pancre as Expected: Oncology medical Referral (HCC) 09/23/2020 nutrition Pancreatitis Post Endoscopic (Approximate), therapy consult Retrograde Expires: (clinic) Cholangiopancrea tography (HCC) 09/23/2023 Abscess Intra Abdominal (HCC ) Oncology office Outpatient Routine Expected: visit (clinic) Referral 10/05/2020 (Approximate), Expires: 09/23/2023 documented as of this encounter Results (ABNORMAL) CBC with Differential, Blood (10/05/2020 7:28 AM TRACER LATHE SET UP OPERATOR) [facility] Method Time Signature Hemoglobin 10.9 (L) 13.2 - 10/05/2020 DTL 16.6 g/dL 7:57 AM TRACER LATHE SET UP OPERATOR Hematocrit 35.0 (L) 38.3 - 10/05/2020 DTL 48.6 % 7:57 AM TRACER LATHE SET UP OPERATOR Erythrocytes 4.28 (L) 4.35 - 10/05/2020 DTL 5.65 7:57 AM TRACER LATHE SET UP OPERATOR x10(12)/L MCV 81.8 78.2 - 10/05/2020 DTL 97.9 fL 7:57 AM TRACER LATHE SET UP OPERATOR RBC Distrib Width 14.6 (H) 11.8 - 10/05/2020 DTL 14.5 % 7:57 AM TRACER LATHE SET UP OPERATOR Platelet Count 426 (H) 135 - 317 10/05/2020 DTL x10(9)/L 7:57 AM TRACER LATHE SET UP OPERATOR Leukocytes 13.1 (H) 3.4 - 9.6 10/05/2020 DTL x10(9)/L 7:57 AM TRACER LATHE SET UP OPERATOR Neutrophils 10.68 (H) 1.56 - 10/05/2020 DTL 6.45 7:57 AM TRACER LATHE SET UP OPERATOR x10(9)/L Lymphocytes 1.20 0.95 - 10/05/2020 DTL 3.07 7:57 AM TRACER LATHE SET UP OPERATOR x10(9)/L Monocytes 0.97 (H) 0.26 - 10/05/2020 DTL 0.81 7:57 AM TRACER LATHE SET UP OPERATOR x10(9)/L Eosinophils 0.15 0.03 - 10/05/2020 DTL 0.48 7:57 AM TRACER LATHE SET UP OPERATOR x10(9)/L Basophils 0.05 0.01 - 10/05/2020 DTL 0.08 7:57 AM TRACER LATHE SET UP OPERATOR x10(9)/L Specimen Anatomical Collection Method Collection Time Receive d Time (Source) Location / / Volume Laterality Blood (Blood, 10/05/2020 7:28 AM 10/05/19 7:41 Venous) TRACER LATHE SET UP OPERATOR AM TRACER LATHE SET UP OPERATOR Deborah VillaB.S. LAB BLOOD ADD-ON Performing Organization Address City/State/[facility] Code Phon e Number [facility] - [id number] [place] [address] (ABNORMAL) Prothrombin Time (PT) (10/05/2020 7:27 AM TRACER LATHE SET UP OPERATOR) Patholo gist Method Time Signature Prothrombin 13.7 (H) 9.4 - 12.5 10/05/2020 DTL Time, P sec 7:59 AM TRACER LATHE SET UP OPERATOR INR 1.2 0.9 - 1.1 10/05/2020 DTL 7:59 AM TRACER LATHE SET UP OPERATOR Comment: ----ADDITIONAL INFORMATION---- Standard intensity warfarin therapeutic range: 2.0 to 3.0 ?? High intensity warfarin therapeutic rang e: 2.5 to 3.5 Specimen Anatomical Collection Method Collection Time Receive d Time (Source) Location / / Volume Laterality Blood (Blood, 10/05/2020 7:27 AM 10/05/19 7:41 Venous) TRACER LATHE SET UP OPERATOR AM TRACER LATHE SET UP OPERATOR Deborah Neal.B.S. LAB BLOOD ADD-ON Performing Organization Address City/[facility]/ZIP Code Phon e Number [facility] - [phone] [place] [address] (ABNORMAL) APTT (Activated Partial Thromboplastin Time) (10/05/2020 7:27 AM TRACER LATHE SET UP OPERATOR) P athologist Signature Activated 41 (H) 25 - 37 10/05/2020 DT Partial sec 7:59 AM TRACER LATHE SET UP OPERATOR Thrombopl Time, P Specimen Anatomical Collection Method Collection Time Receive d Time (Source) Location / / Volume Laterality Blood (Blood, 10/05/2020 7:27 AM 10/05/19 7:41 Venous) TRACER LATHE SET UP OPERATOR AM TRACER LATHE SET UP OPERATOR Deborah VillaB.S. LAB BLOOD ADD-ON Performing Organization Address City/[facility]/ZIP Code Phon e Number [facility] - [phone] Glucose, Fasting (10/05/2020 7:27 AM TRACER LATHE SET UP OPERATOR) P athologist Signature Glucose, P 95 70 - 100 10/05/2020 DTL mg/dL 8:26 AM TRACER LATHE SET UP OPERATOR Last Intake 12 hr 10/05/2020 DTL 7:47 AM TRACER LATHE SET UP OPERATOR Specimen Anatomical Collection Method Collection Time Receive d Time (Source) Location / / Volume Laterality Blood (Blood, 10/05/2020 7:27 AM 10/05/19 7:47 Venous) TRACER LATHE SET UP OPERATOR AM TRACER LATHE SET UP OPERATOR Deborah RussoSRiaz LAB BLOOD NON ADD-ON Performing Organization Address City/State/ZIP Code Phon e Number [facility] - [address] [place], [place] [address] [place] [address] [facility] [address] [facility] (ABNORMAL) Comprehensive Metabolic Panel (10/05/2020 7:27 AM TRACER LATHE SET UP OPERATOR) athologist Signature Potassium, S 4.2 3.6 - 5.2 10/05/2020 DTL mmol/L 8:26 AM TRACER LATHE SET UP OPERATOR Sodium, S 137 135 - 145 10/05/2020 DTL mmol/L 8:26 AM TRACER LATHE SET UP OPERATOR Chloride, S 99 98 - 107 10/05/2020 DTL mmol/L 8:26 AM TRACER LATHE SET UP OPERATOR Bicarbonate, S 29 22 - 29 10/05/2020 DTL mmol/L 8:26 AM TRACER LATHE SET UP OPERATOR Anion Gap 9 7 - 15 10/05/2020 DTL 8:26 AM TRACER LATHE SET UP OPERATOR BUN (Blood Urea 12 8 - 24 10/05/2020 DTL Nitrogen), S mg/dL 8:26 AM TRACER LATHE SET UP OPERATOR Creatinine 0.96 0.74 - 10/05/2020 DTL 1.35 mg/dL 8:26 AM TRACER LATHE SET UP OPERATOR eGFR-Non 88 >=60 10/05/2020 DTL Black/ mL/min/BSA 8:26 AM TRACER LATHE SET UP OPERATOR Romanian Comment: ----ADDITIONAL INFORMATION---- Estimated GFR calculated using the 2009 CKD_EPI creatinine equation. eGFR-Black/ >90 >=60 mL/min/BSA 2020 8:26 AM TRACER LATHE SET UP OPERATOR DTL Comment: ----ADDITIONAL INFORMATION---- Estimated GFR calculated using the 2009 CKD_EPI creatinine equation. Calcium, Total, S 9.3 8.6 - 10.0 mg/dL 10/05/2020 8:26 AM TRACER LATHE SET UP OPERATOR DTL Glucose, S CANCELED mg/dL 10/05/2020 7:48 AM TRACER LATHE SET UP OPERATOR DTL Comment: Test not performed. See Fasting Glucose result. Result canceled by the ancillary. Protein, Total, S 7.3 6.3 - 7.9 g/dL 10/05/2020 8:26 A M TRACER LATHE SET UP OPERATOR DTL Albumin, S 3.4 (L) 3.5 - 5.0 g/dL 10/05/2020 8:26 AM TRACER LATHE SET UP OPERATOR D TL Aspartate Aminotransferase 22 8 - 48 U/L 10/05/2020 8 :26 AM TRACER LATHE SET UP OPERATOR DTL (AST), S Alkaline Phosphatase, S 260 (H) 40 - 129 U/L 10/05/2020 8: 26 AM TRACER LATHE SET UP OPERATOR DTL Alanine Aminotransferase (ALT), 71 (H) 7 - 55 U/L 8:26 AM TRACER LATHE SET UP OPERATOR DTL S Bilirubin, Total, S 0.7 <=1.2 mg/dL 10/05/2020 8:26 AM TRACER LATHE SET UP OPERATOR DTL Specimen Anatomical Collection Method Collection Time Receive d Time (Source) Location / / Volume Laterality Blood (Blood, 10/05/2020 7:27 AM 10/05/19 21 7:48 Venous) TRACER LATHE SET UP OPERATOR AM TRACER LATHE SET UP OPERATOR Deborah VillaBRiazS. LAB BLOOD ADD-ON Performing Organization Address City/State/ZIP Code Phon e Number [facility] - [address] [place], [place] [address] [place] [address] [facility] [address] documented in this encounter Visit Diagnoses Diagnosis Abscess Intra Abdominal (HCC) - Primary Malignant Neoplasm Of Pancreas (HCC) Pancreatitis Post Endoscopic Retrograde Cholangiopancreatography (HCC) documented in this encounter Care Teams Coloring Room 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
--- OUTSIDE RECORDS SUMMARY | 2022-06-18 16:22 | XMS_ITS | Encounter Summary ---
:1965 Author Organization [facility] Address [address] [place] [address] Care Team Providers Name Role Phone Elsewhere, Pcp Primary Care Provider Unavailable Reason for Visit Reason Comments OPAT Intervention OPAT Monitoring complete Encounter Details Date Type Department Care Team Description 09/25/2020 Clinical Communication Section of Sandy Kinney Infectious Diseases M, R.N. (Intervention); in [facility] [phone] OPAT (Monitori [facility] (Work) complete) [address] [place] [address] Social History Tobacco Use Types Packs/Day Years [...] How often do you attend moravian or moravian services? Never 01/15/2021 Do you [...] at Date Recorded Male 08/18/2021 2:55 PM ADMISSIONS OFFICER documented as of this encounter Miscellaneous Notes Telephone Encounter - Sandy Kinney R.N. - 09/25/2020 4:10 PM CST OPAT NOTE Infusion Provider: [facility], phone: [phone], fax: [phone] Antimicrobial(s) currently prescribed: See Med List Hyperlink in note Patient stopped IV antimicrobial treatment on 09/25/20 and verbal order for PICC removal was given toJoselyn at [facility] on 09/25/2020. Lab results from 09/24/2020 are viewable in the MCR record (as external result). Interpretation and action: Will send labs for Dr. Card's review since WBCs have increased slightly. SSIONS OFFICER documented in this encounter Plan of Treatment Upcoming Encounters Date Type Specialty Care Team Description 06/22/2022 Lab Laboratory Medicine Maria Del Rosario Gomez AP RN, C.N.P., M.S. [address] [place] [address] [phone] (jM godoy) 06/22/2022 Infusion Oncology Maria Del Rosario Gomez APRN, C.N .P., M.S. [address] [place] [address] [phone] (Mj rk) 06/29/2022 Lab Laboratory Medicine Maria Del Rosario Gomez AP RN, C.N.P., M.S. [address] [place] [address] [phone] (Mj rk) 06/29/2022 Infusion Oncology Maria Del Rosario Gomez APRN, C.N .P., M.S. [address] [place] [address] [phone] (Mj godoy) documented as of this encounter Procedures Procedure Name Priority Date/Time Associated Diagnosis Comme nts CBC WITHOUT DIFFERENTIAL, Routine 09/24/2020 Re sults for this B procedure are i n the results section. CBC WITH DIFFERENTIAL, B Routine 09/24/2020 Res ults for this procedure are i n the results section. HEMOGLOBIN, B Routine 09/24/2020 Results for th is procedure are i n the results section. ALANINE AMINOTRANSFERASE Routine 09/24/2020 Res ults for this (ALT), S/P procedure are i n the results section. ASPARTATE AMINOTRANSFERASE Routine 09/24/2020 R esults for this (AST), S/P procedure are i n the results section. ALKALINE PHOSPHATASE, S/P Routine 09/24/2020 Re sults for this procedure are i n the results section. CREATININE WITH EGFR, S/P Routine 09/24/2020 Re sults for this procedure are i n the results section. documented in this encounter Results ALT (Alanine Aminotransferase) (09/24/2020) athologist Signature EXT ALT 25 4 - 50 [facility] Specimen (Source) Anatomical Location Collection Method / Collectio n Time Received Time / Laterality Volume Blood (Blood, Venous) Ankur Card M.D. LAB BLOOD ADD-ON Performing Organization Address City/[facility]/ZIP [facility] Phon e Number [facility] [address] [place] [address] AST (Aspartate Aminotransferase) (09/24/2020) athologist Signature EXT AST 29 12 - 35 [facility] Specimen (Source) Anatomical Location Collection Method / Collectio n Time Received Time / Laterality Volume Blood (Blood, Venous) Ankur Card M.D. LAB BLOOD ADD-ON Performing Organization Address City/[facility]/ZIP Code Phon e Number [facility] [address] [place] [address] (ABNORMAL) Alkaline Phosphatase (09/24/2020) [facility] Method Time Signature EXT Alkaline 185 (A) 40 - 150 [facility] Specimen (Source) Anatomical Location Collection Method / Collectio n Time Received Time / Laterality Volume Blood (Blood, Venous) Ankur Card M.D. LAB BLOOD ADD-ON Performing Organization Address City/[facility]/ZIP Code Phon e Number [facility] [address] [place] [address] Creatinine with Estimated GFR (09/24/2020) athologist Signature EXT Creatinine 0.7 mg/dL [facility] Specimen (Source) Anatomical Location Collection Method / Collectio n Time Received Time / Laterality Volume Blood (Blood, Venous) Ankur Card M.D. LAB BLOOD ADD-ON Performing Organization Address City/[facility]/ZIP [facility] Phon e Number [facility] [address] [place] [address] CBC without Differential (09/24/2020) athologist Signature EXT White 11.8 [facility] (WBC) Count LABORATORY Specimen (Source) Anatomical Location Collection Method / Collectio n Time Received Time / Laterality Volume Blood (Blood, Venous) Narrative This result has an attachment that is no t available. Ankur Card M.D. LAB BLOOD ADD-ON Performing Organization Address [place]/[facility] Phon e Number [facility] [address] [place] [address] CBC with Differential, Blood (09/24/2020) athologist Signature EXT Platelet 534 [facility] LAB[facility] EXT Absolute 9.86 [facility] [place] [facility] Specimen (Source) Anatomical Location Collection Method / Collectio n Time Received Time / Laterality Volume Blood (Blood, Venous) Ankur Card M.D. LAB BLOOD ADD-ON Performing Organization Address City/[facility]/ZIP Code Phon e Number [facility] [address] [place] [address] Hemoglobin (09/24/2020) athologist Signature EXT Hemoglobin 10.8 [facility] Specimen (Source) Anatomical Location Collection Method / Collectio n Time Received Time / Laterality Volume Blood (Blood, Venous) Ankur Card M.D. LAB BLOOD ADD-ON Performing Organization Address City/[facility]/ZIP [facility] Phon e Number [facility] [address] [place] [address] documented in this encounter Visit Diagnoses Not on filedocumented in this encounter Care Teams House Superintendent Relationship Specialty Start Date End Date Elsewhere, Pcp PCP - General Family Medicine 08/12/20 documented as of this encounter
--- OUTSIDE RECORDS SUMMARY | 2022-06-18 16:22 | XMS_ITS | Encounter Summary ---
:1965 Author Organization [facility] Address [address] [place] [address] Care Team Providers Name Role Phone Elsewhere, Pcp Primary Care Provider Unavailable Reason for Visit Auth/Cert Specialty Diagnoses / Procedures Referred By Contact Refer red To Contact Diagnoses Abscess Pancreas (HCC) Procedures DIR Referral ID Status Reason Start Date Expiration Date Visits Requ ested Visits Authorized [id number] 1 1 Encounter Details Date Type Department Care Team Description 10/01/2020 Anesthesia Event Division of Gerhard Castillo, Gastroenterology in [employer]IGGING UP WORKER, [facility], [place], [place] [address] [facility] [address] [place] [phone] Anesthesia Record Procedure Summary Procedure Name Responsible Anesthesiologist Anesthesia Start Ti me Anesthesia Stop Time ERCP Gerhard Castillo, GUERO, ROLLER MAN, 10/01/20 1444 1544 [facility] Events Date Time Event Comment 10/01/2020 1444 An Start Machine/Equipmen t Checked Infection Precautions Foll owed Procedure/Site Verified NPO Sta tus Verified Supine Standard ASA Mon itors Applied 1447 An Induction 1450 An Intubation 1450 Turnover to Proceduralist 1505 Proc Start 1524 Proc Fin 1528 Turnover to ANE Staff 1535 Airway Removal Criteria Met 1536 Extubation/Airway Removed 1542 an stop data 1544 An End I completed my h andoff to the receiving staff during [facility] ch we 1. Identified the patient [...] mcg/mL 100 mcg lidocaine 2% (mg) injection 60 mg propofol 10 mg/mL 150 mg propofol 10 mg/mL infusion 352.44 mg succinylcholine 20 mg/mL injection 120 mg phenylephrine 100 mcg/mL injection 600 mcg ondansetron 4 mg/2 mL injection 4 mg dexamethasone 4 mg/mL injection 4 mg Lactated Ringers Free Drip 500 mL Agents No agents on file. Blood No blood administrations on file. Lines, Drains, and Airways Type Details Placement Removal Peripheral IV Placement Date: 10/01/20; 10/01/20 0142 by 10/02 113 by Placement Time: 141; Jackie Cage, Maria Jackson, Existing LDA Placed by: RMariajose Other hospital; Catheter Size: 18 G; Orientation: Right; Location: Antecubital; Site Prep: Chlorhexidine (Preferred); Removal Date: 10/02/20; Removal Time: 1130; Removal Reason: Patient discharged ETT Placement Date: 10/01/20; 10/01/20 1450 by Tunisian, 10/01/20 1537 by Tunisian, Placement Time: 1450 Gerhard Gonzalez APRN, Gerhard Gonzalez APRN, (created via procedure ROLLER MAN, DNAP ROLLER MAN, DNA P documentation); Mask Ventilation: Not attempted; Type: Standard ETT; Single Lumen Tube Size: 7.5 mm; Cuffed: Yes; Location: Oral; Removal Date: 10/01/20; Removal Time: 1536 documented in this encounter Social History Tobacco [...] How often do you attend episcopal or jainism services? Never 01/15/2021 Do you [...] at Date Recorded Male 08/18/2021 2:55 PM LMFT documented as of this encounter OR Notes Anesthesia Postprocedure Evaluation - Gerhard Castillo APRN, CRNA, DNAP - 10/01/2020 3:46 PM CST Patient: Adam Campbell Procedure Summary Date: 10/01/20 Room / Location: Division of Gastroenterology in [place], [place] Anesthesia Start: 1444 Anesthesia Stop: 1544 Procedure: ERCP Diagnosis: Scheduled Providers: Gerhard Castillo APRN, CRNA, DNAP Responsible Provider: Gerhard Castillo APRN, CRNA, DNAP Anesthesia Type: general ASA Status: 3 Anesthesia Type: general Last vitals Vitals Value Taken Time BP 100/67 10/01/20 1543 Temp Pulse 83 10/01/20 1545 Resp 19 10/01/20 1545 SpO2 96 % 10/01/20 1545 Vitals shown include unvalidated device data. Please reference Vitals flowsheet for most recent vital signs. Anesthesia Post Evaluation Patient Disposition: general care unit Cardiovascular status: hemodynamics (HR & BP) acceptable Respiratory status: patent airway with spontaneous effort Temperature: normothermic Oxygen requirements: nasal cannula Level of consciousness: awake Pain score: pain adequately controlled and/or at baseline Post Op nausea/vomiting: none Hydration status: euvolemic Anesthesia observations: refractory nausea and vomiting Anesthesia Procedure Notes - Gerhard Castillo APRN, CRNA, DNAP - 10/01/2020 3:11 PM CSTAssociated Order(s): Airway Airway Date/Time: 10/01/2020 2:50 PM Performed by: Gerhard Castillo APRN, CRNA, DNAP Authorized by: Gerhard Castillo APRN, CRNA, DNAP Patient location during procedure: OR / Procedure Area PROCEDURE DETAILS: Mask difficulty assessment: not attempted Final airway type: video laryngoscope Laryngeal Manipulation: no Final best view of glottic structures - Cormack/Lehane Score: grade 2A ETT location: oral VL device: glide scope [place] scope blade size: 4 Adult tube size: [...] event: no complications Anesthesia Preprocedure Evaluation - Gerhard Castillo APRN, CRNA, DNAP - 10/01/2020 2:35 PM CST Preprocedure Anesthesia & H&P Assessment Procedure Summary Anesthesia Start Date/Time: 10/01/20 1444 Scheduled providers: Gerhard Castillo APRN, CRNA, DNAP Procedure: ERCP Location: Division of Gastroenterology in [place], [place] Pertinent components of the patient's history [...] >3 FB Neck ROM: Full Mouth Opening: <3 cm Cardiovascular Rhythm: Regular Cardiovascular Assessment: cardiovascular normal Functional Capacity: >4 [...] with patient /legal guardian or through an photograph tinter. Risks/Benefits/Alternatives of Blood transfusion discussed with patient [...] Gomez AP RN, C.N.P., M.S. [address] [place] [address] [phone] ( rk) 06/22/2022 Infusion Oncology Maria Del Rosario Gomez APRN, Remy.N .P., M.S. [address] [place] [address] [phone] ( rk) 06/29/2022 Lab Laboratory Medicine Maria Del Rosario Gomez AP RN, C.N.P., M.S. [address] [place] [address] [phone] ( rk) 06/29/2022 Infusion Oncology Maria Del Rosario Gomez APRN, C.N .P., M.S. [address] [place] [address] [phone] ( rk) documented as of this encounter Procedures Procedure Name Priority Date/Time Associated Comments Diagnosis LDA ANE ENDOTRACHEAL Routine 10/01/2020 3:11 PM R esults for this AIRWAY LMFT procedure are i n the results section. documented in this encounter Results LDA ANE ENDOTRACHEAL AIRWAY (10/01/2020 3:11 PM LMFT) Narrative Gerhard Castillo APRN, CRNA, DNAP - 09/12 3:11 PM LMFT Gerhard Castillo APRN, CRNA, DNAP ? 10/01/2020 ??3:11 PM Airway Date/Time: 10/01/2020 2:50 PM Performed by: Gerhard Castillo APRN, CRN A, DNAP Authorized by: Gerhard Castillo APRN, CR NA, DNAP Patient location during procedure: OR / Procedure Area PROCEDURE DETAILS: Mask difficulty assessment: not attempte d Final airway type: video laryngoscope Laryngeal Manipulation: no ?? Final best view of glottic structures - Cormack/Lehane Score: grade 2A ETT location: oral VL device: glide scope [place] scope blade size: 4 Adult tube size: [...] outcome: successful ?? Airway event: no complications Gerhard Castillo APRN, CRNA, DNAP ANESTHESIA ORDERABLES documented in this encounter Visit Diagnoses Not on filedocumented in this encounter Administered Medications Inactive Administered Medications - up to 3 most recent administrations Medication Order MAR Action Action Date Dose Rate Site dexAMETHasone injection (DECADRON) Given 10/01/2020 2:55 PM LMFT 4 mg As needed, Starting on Sandra 10/01/20 at 1455, Anesthesia Intra-op fentaNYL injection (SUBLIMAZE) Given 10/01/2020 3:05 PM LMFT 50 mcg intravenous, As needed, Starting on Sandra 10/01/20 at 1447, Anesthesia Intra-op Given 10/01/2020 2:47 PM LMFT 50 mcg lactated ringers New Bag 10/01/2020 3:23 PM LMFT intravenous, Continuous Infusion: Per Instructions PRN, Starting on Sandra 10/01/20 at 1444, Anesthesia Intra-op New Bag 10/01/2020 2:44 PM LMFT lidocaine (PF) (cardiac) injection Given 10/01/2020 2:47 PM LMFT 60 mg intravenous, As needed, Starting on Sandra 10/01/20 at 1447, Anesthesia Intra-op ondansetron (PF) injection (ZOFRAN) Given 10/01/2020 3:25 PM LMFT 4 mg intravenous, As needed, Starting on Sandra 10/01/20 at 1525, Anesthesia Intra-op phenylephrine injection Given 10/01/2020 3:23 PM LMFT 200 mcg intravenous, As needed, Starting on Sandra 10/01/20 at 1451, Anesthesia Intra-op Given 10/01/2020 3:18 PM LMFT 100 mcg Given 10/01/2020 3:07 PM LMFT 50 mcg propofol 10 mg/mL infusion New Bag 10/01/2020 2:51 150 mcg/kg/min 64.1 mL/hr (DIPRIVAN) PM LMFT intravenous, Continuous Infusion: Per Instructions PRN, Starting on Sandra 10/01/20 at 1451, Anesthesia Intra-op propofoL injection (DIPRIVAN) Given 10/01/2020 2:48 PM LMFT 150 mg intravenous, As needed, Starting on Sandra 10/01/20 at 1448, Anesthesia Intra-op succinylcholine (PF) injection (ANECTINE ) Given 10/01/2020 2:49 PM LMFT 120 mg intravenous, As needed, Starting on Sandra 10/01/20 at 1449, Anesthesia Intra-op documented in this encounter Care Teams Sql Database Programmer Relationship Specialty Start Date End Date Elsewhere, Pcp PCP - General Family Medicine 08/12/20 documented as of this encounter
--- OUTSIDE RECORDS SUMMARY | 2022-06-18 16:22 | XMS_ITS | Encounter Summary ---
:[address] [facility] Address [address] [place] [address] Care Team Providers Name Role Phone Elsewhere, Pcp Primary Care Provider Unavailable Encounter Details Date Type Department Care Team Description 09/09/2020 Clinical Communication Division of Norbert Perez Hepatobiliary and S, M.B.B.S. Pancreas Surgery in [place], [place] [address] [place] [address] Social History Tobacco Use Types Packs/Day [...] How often do you attend mormon or adventist services? Never 01/15/2021 Do you [...] Date Recorded Male 08/18/2021 2:55 PM MEDIA PLANNER / BUYER documented as of this encounter Miscellaneous Notes Telephone Encounter - Norbert Perez M.B.B.S. - 09/09/2020 9:38 PM MEDIA PLANNER / BUYER Please refer to prior documented telephone encounters in addition to my note. I received a call from Mr. Campbell complaining of waxing and waning low-grade fevers and new onset dysuria. Patient reports that his epigastric pancreatic pain has slightly increased today but overall istolerable with oxycodone. He underwent the MRI of the abdomen earlier today which showed a decreasedsize of his peripancreatic fluid collection and associated inflammation. His lipase was normal and his white cell count was mildly elevated at 11.9. His chronic antibiotic regimen was switched from ceftriaxone to ertapenem due to hepatic toxicity. The patient reports drinking almost 2 L of water a day and has not had history of UTIs ever. Describes a remote history of a passed kidney stone. Reassured the patient that this is unlikely to be related to his pancreas. Suggested that he reachesout to his family physician to order a urinalysis. In the meantime, he will continue to receive his IV ertapenem. He said this could be arranged as early as tomorrow morning with his infusion therapy lab collection in the morning. Should the symptoms continue, I asked him to call us back and we will be happy to assist. A PLANNER / BUYER documented in this encounter Plan of Treatment Upcoming Encounters Date Type Specialty Care Team Description 06/22/2022 Lab Laboratory Medicine Maria Del Rosario Gomez AP RN, C.N.P., M.S. [address] [place] [address] [phone] (Mj godoy) 06/22/2022 Infusion Oncology Maria Del Rosario Gomez APRN, C.N .P., M.S. [address] [place] [address] [phone] (Mj godoy) 06/29/2022 Lab Laboratory Medicine Maria Del Rosario Gomez AP RN, C.N.P., M.S. [address] [place] [address] [phone] (Mj godoy) 06/29/2022 Infusion Oncology Maria Del Rosario Gomez APRN, C.N .P., M.S. [address] [place], [place] [phone] (Wo rk) documented as of this encounter Visit Diagnoses Not on filedocumented in this encounter Additional Health Concerns Infection Onset Date Last Indicated Resolved Time COVID19 Pending 09/09/2020 09/09/2020 09/09/2020 10:46 PM MEDIA PLANNER / BUYER documented as of this encounter Care Teams Mash Preparatory Operator Relationship Specialty Start Date End Date Elsewhere, Pcp PCP - General Family Medicine 08/12/20 documented as of this encounter
--- OUTSIDE RECORDS SUMMARY | 2022-06-18 16:22 | XMS_ITS | Encounter Summary ---
:1965 Author Organization [facility] Address [address] [place] [address] Care Team Providers Name Role Phone Elsewhere, Pcp Primary Care Provider Unavailable Reason for Visit Reason Comments OPAT Care Coordination Encounter Details Date Type Department Care Team Description 09/23/2020 Clinical Communication Section of Irene Jimenez (Care Infectious Diseases M, R.N. Coordination) in [place] [address] [place], [place] [address] [facility] [address] [place], [place] [phone] (Work) [phone] Social History Tobacco Use Types Packs/Day Years [...] How often do you attend baptist or worship services? Never 01/15/2021 Do you [...] at Date Recorded Male 08/18/2021 2:55 PM DEPUTY INSURANCE COMMISSIONER documented as of this encounter Miscellaneous Notes Telephone Encounter - Irene Jimenez R.N. - 09/25/2020 2:50 PM CST Received a call from Dr. Marr. Dr. Marr wants to stop the antibiotic today. He does not want it extended as he said previously. Patient wanted to keep PICC but I informed Dr. Marr that we usually pull thePICC. Dr. Marr was in agreement with pulling PICC. I spoke with Sary at [facility] and she will notify home health that PICC can be pulled. TY INSURANCE COMMISSIONER Telephone Encounter - Sandy Kinney R.N. - 09/23/2020 4:[address] Card advises that he is tentatively extending the patient's ertapenem for 2 weeks and plans to have a video visit with the patient around that time. I contacted Haim at [facility] with the update and will fax the new rx. Haim verbalized his understanding and states that he will ensure that the labs and site care continue as well. TY INSURANCE COMMISSIONER Telephone Encounter - Irene Jimenez R.N. - 09/23/2020 4:25 PM CST Haim calls from [facility]. Patient had appointment today and he asks if IV antibiotics can be completed. ID note is not completed. I paged Dr. Card. Dr. Card would like patient to continue therapy until at least Monday which would be 6 weeks of therapy. He needs to speak with Dr. Bender and KAYLA. TY INSURANCE COMMISSIONER documented in this encounter Plan of Treatment Upcoming Encounters Date Type Specialty Care Team Description 06/22/2022 Lab Laboratory Medicine Maria Del Rosario Gomez AP RN, C.N.P., M.S. [address] [place] [address] [phone] (Wo ) 06/22/2022 Infusion Oncology Maria Del Rosario Gomez APRN, C.N .P., M.S. [address] [place] [address] [phone] (Wo rk) 06/29/2022 Lab Laboratory Medicine Maria Del Rosario Gomez AP RN, C.N.P., M.S. [address] [place] [address] [phone] (Wo rk) 06/29/2022 Infusion Oncology Maria Del Rosario Gomez APRN, C.N .P., M.S. [address] [place] [address] [phone] (Wo rk) documented as of this encounter Visit Diagnoses Not on filedocumented in this encounter Care Teams Substance Abuse Nurse Relationship Specialty Start Date End Date Elsewhere, Pcp PCP - General Family Medicine 08/12/20 documented as of this encounter
--- OUTSIDE RECORDS SUMMARY | 2022-06-18 16:22 | XMS_ITS | Encounter Summary ---
:1965 Author Organization [facility] Address [address] [place] [address] Care Team Providers Name Role Phone Elsewhere, Pcp Primary Care Provider Unavailable Reason for Visit Reason Comments OPAT Care Coordination Encounter Details Date Type Department Care Team Description 09/15/2020 Clinical Section of Lola Luz (Care Communication Infectious S, R.N. Coordination) Diseases in [phone] [facility]) [place] [address] [place] [address] Social History Tobacco Use Types Packs/Day Years [...] How often do you attend pentecostalism or roman catholic services? Never 01/15/2021 Do [...] at Date Recorded Male 08/18/2021 2:55 PM IT INVESTMENT/PORTFOLIO MANAGER documented as of this encounter Miscellaneous Notes Telephone Encounter - Lola Luz R.N. - 09/15/2020 8:38 AM IT INVESTMENT/PORTFOLIO MANAGER Blood culture results were received via fax from [facility] and were scanned into Document viewer. Will route to ID provider. Collected 09/09/2020 Blood culture, peripheral right arm 09/14/20 - Final, negative, no growth at day 5 Collected 09/09/2020 Blood culture, left arm PICC draw 09/14/20 - Final, negative, no growth at day 5 INVESTMENT/PORTFOLIO MANAGER documented in this encounter Plan of Treatment Upcoming Encounters Date Type Specialty Care Team Description 06/22/2022 Lab Laboratory Medicine Maria Del Rosario Gomez AP RN, C.N.P., M.S. [address] [place] [address] [phone] (Mj godoy) 06/22/2022 Infusion Oncology Maria Del Rosario Gomez APRN, C.N .P., M.S. [address] [place] [address] [phone] (Mj godoy) 06/29/2022 Lab Laboratory Medicine Maria Del Rosario Gomez AP RN, C.N.P., M.S. [address] [place] [address] [phone] (Mj godoy) 06/29/2022 Infusion Oncology Maria Del Rosario Gomez APRN, C.N .P., M.S. [address] [place] [address] [phone] (Mj godoy) documented as of this encounter Visit Diagnoses Not on filedocumented in this encounter Care Teams Radio Antenna Installer Relationship Specialty Start Date End Date Elsewhere, Pcp PCP - General Family Medicine 08/12/20 documented as of this encounter
--- OUTSIDE RECORDS SUMMARY | 2022-06-18 16:22 | XMS_ITS | Encounter Summary ---
:1965 Author Organization [facility] Address [address] [place] [address] Care Team Providers Name Role Phone Elsewhere, Pcp Primary Care Provider Unavailable Reason for Referral MRI/CAT/PET Scan (Routine) - Closed Specialty Diagnoses / Procedures Referred By Contact Refer red To Contact Radiology Diagnoses Pancreatitis Acute (HCC) Ernesto Curiel M.D. [facility] Procedures CT Abdomen Pelvis with IV Contrast [address] [place] [phone] Referral ID Status Reason Start Date Expiration Date Visits Requ ested Visits Authorized [id number] Closed 09/23/2020 09/23/2021 1 1 GHT SEPARATOR Encounter Details Date Type Department Care Team Description 09/23/2020 Office Visit Division of Ernesto Curiel Pancreatitis Acute Gastroenterology ej Sifuentes M.D. (HCC) (Primary Dx) [place], [place] [address] [facility] [address] [place] [phone] Social History Tobacco Use Types Packs/Day Years [...] How often do you attend hindu or mormonism services? 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 - 09/23/2020 3:00 PM CST Referring Physician: No ref. provider found Primary Care Physician: ELSEWHERE, PCP Subjective: Chief Complaint/Reason for Consult: necrotizing pancreatitis HPI: .??Adam Campbell??is a 55 y.o.??male??with past medical history significant for biopsy-proven pancreatic adenocarcinoma diagnosed 07/2020 with??malignant biliary stenosis s/p stent placement 07/29 (complicated by post- ERCP pancreatitis) and balloon dilation 08/04, and infected non-occlusive portal vein thrombosis (on therapeutic Lovenox) complicated by Strep anginosus bacteremia in early 08/2020 (on ceftriaxone and later transitioned to ertapenem on 09/09 due to possible hepatotoxicity), whois here today for follow-up after recent hospitalization for Complex necrotizing peripancreatic fluid. While he was in the hospital, CT AP revealed complex necrotizing peripancreatic fluid collections with new gas foci highly suspicious for infection,??persistent left portal vein thrombus, severe narrowing of the SMV, and unchanged pancreatic uncinate malignancy. he was treated with antibiotics with the help of the infectious disease team. Mr. Campbell was evaluated by ERCP/EUS specialists for potential drainage of these peripancreatic fluid collections. However, it was felt that the loculated fluid collections were not mature enough for cystgastrostomy and drainage. Patient was discharged on IV ertapenem per Infectious Disease recommendations with plan to reassess with CT imaging in a week. Today Mr. Campbell is here and reports that he has been doing well on the IV ertapenem, has not had anysubsequent fevers. He did have a repeat CT scan performed yesterday. Currently he still has some abdominal pain and discomfort but it is not significantly worse than when he was in the hospital. Here today to follow-up on results of CT scan and next steps. He did see Oncology this morning who were okay proceeding with chemotherapy if Mr. Campbell was deemed stable from an infectious standpoint. Patient Active Problem List Diagnosis Date Noted ??? Abscess Intra Abdominal (HCC) 09/23/2020 ??? 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 Fever With Chill 09/13/2020 ??? Pain Generalized Abdominal 09/12/2020 ??? Portal Vein Thrombosis 08/18/2020 ??? Dysfunction Erectile 08/18/2020 ??? Adjustment Disorder Mixed Reaction ??? Bacteremia 08/15/2020 ??? Abdominal Pain 08/12/2020 ??? Malignant Neoplasm Of Pancreas (HCC) 07/30/2020 ??? Pancreatitis Post Endoscopic Retrograde Cholangiopancreatography (HCC) 07/30/2020 ??? Gastroesophageal Reflux Disease NOS 10/31/2012 ??? Murmur Heart 11/28/2010 Past Medical History: Diagnosis Date ??? Adjustment [...] TRIGGER FINGER RELEASE ??? VASECTOMY N/A Vasectomy Allergies Allergen Reactions ??? Ranitidine Hcl Diarrhea Prior to Admission medications Medication Sig Start Date End Date Taking? Authorizing Provider acetaminophen (TYLENOL) 500 mg tablet Take 1 tablet (500 mg total) by mouth every 6 (six) hours. 08/15/20 Anita Driver M.D. enoxaparin (LOVENOX) 80 mg/0.8 mL injection Inject 0.8 mL (80 mg total) under the skin 2 (two) timesa day. 08/15/20 10/14/20 Anita Driver M.D. ertapenem (INVanz) 100 mg/mL injection Infuse 10 mL (1 g total) into a venous catheter daily for 16 days Indications: Intra-abdominal infection, community acquired. Stop date: Oct 09, 2020. 09/23/20 10/09/20 Ankur Card M.D., M.B.A. oxyCODONE (ROXICODONE) 5 mg immediate release tablet Take 1 tablet (5 mg total) by mouth every 6 (six) hours as needed for pain Indication: Prolonged Acute Pain/Traumatic Injury. 09/09/20 Tori Meeks P.A.-C. pantoprazole (PROTONIX) 40 mg EC tablet Take 40 mg by mouth every morning before breakfast. Provider, Historical polyethylene glycol (MIRALAX) 17 gram/dose oral powder Take 17 g by mouth. Dissolve each 17 g dose in 240 mLs (8 ounces) of beverage. Provider, Historical sennosides (SENOKOT) 8.6 mg tablet Take 8.6 mg by mouth daily. Provider, Historical sodium chloride 0.9 % injection Infuse 5 mL into a venous catheter as needed for line care for up to20 days. 09/15/20 10/05/20 Jesse Ramirez M.D. ertapenem (INVanz) 100 mg/mL injection Infuse 10 mL (1 g total) into a venous catheter daily for 14 days Indications: Intra-abdominal infection, community acquired. 09/15/20 09/23/20 Jesse Ramirez M.D. Family History Problem Relation Age of Onset ??? Lung cancer Maternal Grandmother Family History of: Details Colon Cancer [x] No [] Yes Inflammatory Bowel Disease [x] No [] Yes Liver Disease [x] No [] Yes Social History Socioeconomic History ??? Marital status: Spouse name: Shaniqua ??? Number of children: 2 ??? Years of education: Not on file ??? Highest education level: 11th grade Occupational History ??? 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 Financial [...] times a week Gets together: Never Attends mormonism service: Never Active member of club or organization: No Attends meetings of clubs or organizations: Never Relationship status: ??? Intimate partner violence Fear of current or ex partner: Not on file Emotionally abused: Not on file Physically abused: Not on file Forced sexual activity: Not on file Other Topics Concern ??? Not on file Social History Narrative ??? Not on file Review of Systems Pertinent items are noted in HPI. Objective: Vital Signs: Temperature: [35.9 ??C-36.8 ??C] 36.8 ??C Resp Rate: [20] 20 Blood Pressure: (92)/(64) 92/64 SpO2: [98 %] 98 % Pulse Rate: [99] 99 Physical ExaM General: Sitting comfortably. Alert, oriented x 3. Cooperative, in no acute distress. Lungs: Non-labored breathing on room air. Abdomen: Soft, non-distended, Extremities: Warm and well-perfused UE and LE. Skin: No rashes. Neuro: cn 2-12 intact, no focal deficitcs Psych: Appropriate affect. No SI, HI. Bilirubin, Total, S Date Value Ref Range Status 09/14/2020 0.6 <=1.2 mg/dL Final 09/14/2020 0.7 <=1.2 mg/dL Final 09/13/2020 0.8 <=1.2 mg/dL Final 09/12/2020 0.8 <=1.2 mg/dL Final Continuous Infusions: Scheduled Meds: PRN Meds: ??? heparin PF flush Assessment/Plan: #Infected peripancreatic necrosis # infected portal vein thrombosis # borderline resectable pancreatic adenocarcinoma - reviewed imaging with Dr. vazquez, advanced endoscopist, and at this point it appears that the peripancreatic fluid collections have improved and may not even be infected anymore as there is no evidence of the gas seen on previous imaging. However it would be beneficial to wait another week or 2 to consider cyst gastrostomy as the fluid collections have not completely matured. -we do not feel that this fluid collection should inhibit him from proceeding with chemotherapy recommended by Oncology. Once collections mature even if he is on a chemotherapy regimen cyst gastrostomycan be performed. - in terms of antibiotics, spoke with Infectious Disease and would agree with a trial off of antibiotics. -will order for repeat CT scan in 1 week to re-evaluate these collections. Electronically signed by: Ernesto Curiel M.D. 09/23/2020 5:57 PM FREIGHT SEPARATOR GHT SEPARATOR documented in this encounter Plan of Treatment Upcoming Encounters Date Type Specialty Care Team Description 06/22/2022 Lab Laboratory Medicine Maria Del Rosario Gomez AP RN, C.N.P., M.S. [address] [place] [address] [phone] (Mj godoy) 06/22/2022 Infusion Oncology Maria Del Rosario Gomez APRN, C.N .P., M.S. [address] [place] [address] [phone] (Mj godoy) 06/29/2022 [facility] [address] [place] [address] [phone] (Mj godoy) 06/29/2022 Infusion Oncology Maria Del Rosario Gomez APRN, C.N .P., M.S. [address] [place] [address] [phone] (Mj godoy) documented as of this encounter Results CT Abdomen Pelvis with IV Contrast (10/05/2020 2:10 PM FREIGHT SEPARATOR) Anatomical Region Laterality Modality Abdomen, Pelvis, Abdominal RST LOS, N/A Comp uted Tomography, Computed Abdominal ARZ LOS, Abdominal FLA LOS Dileep ography Specimen (Source) Anatomical Collection Method Collection Time Re ceived Time Location / / Volume Laterality 10/05/2020 5:12 PM FREIGHT SEPARATOR Impressions 10/05/2020 5:23 PM FREIGHT SEPARATOR Mild interval maturation of multifocal peripancreatic fluid collections, slightly decreased in volume. Otherwise no significant change. Narrative 10/05/2020 5:23 PM FREIGHT SEPARATOR EXAM: ??CT ABDOMEN PELVIS WITH IV CONTRAST [...] in volume. Otherwise no significant change. Ernesto WONG CT PROCEDURES documented in this encounter Visit Diagnoses Diagnosis Pancreatitis Acute (HCC) - Primary Pancreatitis Acute (HCC) documented in this encounter Care Teams Production Boring Machine Operator Relationship Specialty Start Date End Date Elsewhere, Pcp PCP - General Family Medicine 08/12/20 documented as of this encounter
--- OUTSIDE RECORDS SUMMARY | 2022-06-18 16:23 | XMS_ITS | Encounter Summary ---
:1965 Author Organization [facility] Address [address] [place] [address] Care Team Providers Name Role Phone Elsewhere, Pcp Primary Care Provider Unavailable Encounter Details Date Type Department Care Team Description 08/18/2020 Clinical Communication RST Hayes Becerra [address] [facility] [address] Social History Tobacco Use Types Packs/Day Years [...] How often do you attend quaker or buddhist services? Never 01/15/2021 Do you [...] [place] [facility] (including now)? 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 [address] [place] [phone] (Wo rk) 06/22/2022 Infusion Oncology Maria Del Rosario Gomez APRN, C.N .P., M.S. [address] [place] [phone] (Mj godoy) 06/29/2022 Lab Laboratory Medicine Maria Del Rosario Gomez AP RN, C.N.P., M.S. [address] [place] [address] [phone] (Mj godoy) 06/29/2022 Infusion Oncology Maria Del Rosario Gomez APRN, C.N .P., M.S. [address] [place] [address] [phone] (Mj godoy) documented as of this encounter Visit Diagnoses Not on filedocumented in this encounter Care Teams Band Sawyer Relationship Specialty Start Date End Date Elsewhere, Pcp PCP - General Family Medicine 08/12/20 documented as of this encounter
--- OUTSIDE RECORDS SUMMARY | 2022-06-18 16:23 | XMS_ITS | Encounter Summary ---
:1965 Author Organization [facility] Address [address] [place] [address] Care Team Providers Name Role Phone Elsewhere, Pcp Primary Care Provider Unavailable Reason for Visit Reason Comments OPAT Encounter Details Date Type Department Care Team Description 08/17/2020 Clinical Communication RST Jas Dumont, OPAT [address] [facility].[place], [place] [address] [place] [phone] [place] [address] Social History Tobacco Use Types Packs/Day Years [...] How often do you attend bahai or mormonism services? Never 01/15/2021 Do you [...] or slept in a fdc (including now)? 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 NDSKEEPING YARDMAN documented in this encounter Plan of Treatment Upcoming Encounters Date Type Specialty Care Team Description 06/22/2022 Lab Laboratory Medicine Maria Del Rosario Gomez AP RN, C.N.P., M.S. [address] [place] [address] [phone] (Mj godoy) 06/22/2022 Infusion Oncology Maria Del Rosario Gomez APRN, C.N .P., M.S. [address] [place] [address] [phone] (Mj godoy) 06/29/2022 Lab Laboratory Medicine Maria Del Rosario Gomez AP RN, C.N.P., M.S. [address] [place] [address] [phone] (Mj godoy) 06/29/2022 Infusion Oncology Maria Del Rosario Gomez APRN, C.N .P., M.S. [address] [place] [address] [phone] (Mj godoy) documented as of this encounter Visit Diagnoses Diagnosis Bacteremia - Primary documented in this encounter Care Teams Cold Food Packer Relationship Specialty Start Date End Date Elsewhere, Pcp PCP - General Family Medicine 08/12/20 documented as of this encounter
--- OUTSIDE RECORDS SUMMARY | 2022-06-18 16:23 | XMS_ITS | Encounter Summary ---
:1965 Author Organization [facility] Address [address] [place] [address] Care Team Providers Name Role Phone Elsewhere, Pcp Primary Care Provider Unavailable Reason for Referral MRI/CAT/PET Scan (Routine) - Closed Specialty Diagnoses / Procedures Referred By Contact Refer red To Contact Radiology Diagnoses Malignant Neoplasm Of Pancreas Adenocarcinoma (HCC) Pancreatitis Post Endoscopic Retrograde Cholangiopancreatography (HCC) [facility] Procedures CT Pancreas Angiogram Triple Phase and Pelvis with IV Contrast Julissa Meza [address] [place] [address] Referral ID Status Reason Start Date Expiration Date Visits Requ ested Visits Authorized [id number] Closed 08/07/2020 08/07/2021 1 1 STOCK INSPECTOR Reason for Visit MRI/CAT/PET Scan (Routine) - Closed Specialty Diagnoses / Procedures Referred By Contact Refer red To Contact Radiology Diagnoses Malignant Neoplasm Of Pancreas Adenocarcinoma (HCC) Pancreatitis Post Endoscopic Retrograde Cholangiopancreatography (HCC) [facility] Procedures CT Pancreas Angiogram Triple Phase and Pelvis with IV Contrast Julissa Meza [address] [place] [id number] Referral ID Status Reason Start Date Expiration Date Visits Requ ested Visits Authorized [id number] Closed 08/07/2020 08/07/2021 1 1 Encounter Details Date Type Department Care Team Description 08/18/2020 Hospital Department of [facility], Malignant Neop lasm Of Pancreas Adenocarcinoma (HCC); Encounter Radiology, [facility] Tori Sanchez, Pancreatitis Post Endoscopic Retrograde Cholangiopancreatography (HCC) Building, in [facility] [place], [address] [place], [place] 200 [facility] [id number] [place], [place] [phone] (Work) [phone] Social History Tobacco Use Types Packs/Day Years [...] How often do you attend evangelical or anabaptism services? Never 01/15/2021 Do you [...] or slept in a penitentiary (including now)? 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 acetaminophen (TYLENOL) Take 1 tablet (500 0 01/202001/01/2021 500 mg tablet mg total) by mouth every 6 (six) hours. ascorbic Take 1 packet by 0 09/12/19 21 [id number]-[id number]-fjx mouth daily as (Emergen-C) 1,000 mg needed. powder effervescent in packet cefTRIAXone in dextrose, Infuse 50 mL (2 g 2000 mL 0 01/202009/09/2020 iso-osm, (ROCEPHIN) 2 total) into a gram/50 mL venous catheter IVBPIndications: daily Indications: Intra-abdominal Intra-abdominal infection, community infection, acquired community acquired. enoxaparin (LOVENOX) 80 Inject 0.8 mL (80 120 Syringe 0 01/202010/30/2020 mg/0.8 mL injection mg total) under the skin 2 (two) times a day. oxyCODONE (ROXICODONE) 5 Take 1 tablet (5 mg 30 tablet 0 08/26/2020 mg immediate release total) by mouth tabletIndications: Acute every 6 (six) hours Pain Exception, as needed for pain Prolonged Acute Indication: Acute Pain/Traumatic Injury Pain Exception, Prolonged Acute Pain/Traumatic Injury. pantoprazole (PROTONIX) Take 40 mg by mouth 0 10/02/2020 40 mg EC tablet every morning before breakfast. documented as of this encounter Nursing Notes Katia Deal R.N. - 08/18/2020 11:00 AM CST PICC Contrast Injection Documentation: What type of PICC? Valved Solo PICC Power? Yes Blood return verified? Yes VAPP Orders (Nurse to use Saline or Heparin post scan): Saline ONLY For MR Power Injection, was tip placement verified?N/A *For CT: Needs PRE and POST Installation And Repair Technician to determine tip placement* STOCK INSPECTOR Sharifa Momin R.N. - 08/18/2020 11:00 AM CST Patient's PICC tip moved during CT scan. Per Dr. Calvert, 3 cc flush was manually injected. Tip did move slightly. No power injection done per Dr. Calvert. Patient is to go to [facility] IR to have the PICC reposition. STOCK INSPECTOR documented in this encounter Plan of Treatment Upcoming Encounters Date Type Specialty Care Team Description 06/22/2022 Lab Laboratory Medicine Maria Del Rosario Gomez AP RN, C.N.P., M.S. [address] [place] [address] [phone] (Wo jayne) 06/22/2022 [facility] APRN, Remy.N .P., M.S. [address] [place] [address] [phone] (Wo rk) 06/29/2022 Lab Laboratory Medicine AdMaria Del Rosario pierre AP RN, C.N.P., M.S. [address] [place] [address] [phone] (Wo rk) 06/29/2022 Infusion Oncology Maria Del Rosario Gomez APRN, C.N .Pamela., M.S. [address] [place] [address] [phone] (Wo rk) documented as of this encounter Procedures Procedure Name Priority Date/Time Associated Diagnosis Comme nts CT PANCREAS RAD - Routine 08/18/2020 Malignant Neoplasm Of Resul ts for ANGIOGRAM (most 11:05 AM LIVESTOCK INSPECTOR Pancreas Adenoca rcinoma (HCC) this TRIPLE PHASE inpatients and Pancreatitis Post Endoscop ic procedure are AND PELVIS all Retrograde in the WITH IV outpatients) Cholangiopancreatography res ults CONTRAST (HCC) section. documented in this encounter Results CT Pancreas Angiogram Triple Phase and Pelvis with IV Contrast (08/18/2020 11:05 AM LIVESTOCK INSPECTOR) Anatomical Region Laterality Modality Abdomen, Pelvis, Abdominal RST LOS, N/A Comp uted Tomography, Computed Abdominal ARZ LOS, Vascular Tomography Interventional ARZ LOS, Vascular Interventional FLA LOS, Abdominal FLA LOS Specimen (Source) Anatomical Collection Method Collection Time Re ceived Time Location / / Volume Laterality 08/18/2020 10:52 AM LIVESTOCK INSPECTOR Impressions 08/18/2020 12:25 PM LIVESTOCK INSPECTOR 1. Malpositioned left arm PICC after contrast injection. Tip is currently directed superiorly into the internal ju gular vein. This should be repositioned prior to use. This was discussed with RICKY Marquez [id number] at 11:20am on 09/30/2019. 2. Peripancreatic inflammation is marked ly increased. Extensive enlarging peripancreatic and upper abdominal fluid collections. 3. Unable to evaluate the known pancreat ic malignancy due to significant surrounding inflammation. 4. 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 New extension of thrombus into the right portal vein. 5. Small left pleural effusion with atel ectasis, increased since previously. 6. Indeterminate but unchanged right mid dle lobe pulmonary nodules. Narrative 08/18/2020 12:25 PM LIVESTOCK INSPECTOR EXAM: ??CT PANCREAS ANGIOGRAM TRIPLE PHASE AND PELVIS WITH IV CONTRAST Including 3D image post-processing. Pancreatic Mass Morphologic Evaluation COMPARISON: Outside CT abdomen and pelvi s 08/30/2020 FINDINGS: Left arm PICC became malpositioned after contrast injection, currently with the tip directed superiorly into the interna l jugular vein. Tori Meeks notified and pt. is scheduled for reposi tioning in IR Radiology. Marked inflammatory changes about the pa ncreas and throughout the upper abdomen have significantly progressed since 10/2019. Multiple new and enlarging peripancreatic and upper abdominal fluid collections with components extending around the spleen, into the left retrope ritoneum, slightly into the beverly hepatis, and into the central mesentery. Exact measurements are difficult due to the irregular shape, however the largest collection just inferior to the pancreas measures approximately 18.5 x 7 .0 cm (series 8 image 172). ??Slightly heterogenous enhancement of the pancreas without definite findings of pancreatic necrosis. There is a small 1.1 cm low de nsity area in the head/neck of the pancreas(series 8/154) that is indetermi dylan for necrosis. The patient's known underlying adenocarcinoma is not visuali zed due to surrounding inflammation and edema, but when compared to prior CT's i t is situated along the medial aspect of the uncinate process just posterior to t he SMV and SMV/Portal vein confluence (series 8, image 171) . Redemonstration of a nonocclusive bland appearing thrombus in the main portal vein extending into the left portal vein with new extension into the right portal vein since 08/12/20 CT. Splenic ve in is narrowed but patent. Common bile duct stent with pneumobilia. Peripheral areas of focal arterial hyperenhancement in the liver do not per sist on portal venous phase are likely perfusional. No suspicious liver lesions . ?? Small 5 mm nodular densities in the grea ter omentum(series 9/124) could be inflammatory but cannot exclude peritone al metastases. Scattered upper abdominal lymph nodes may be reactive. No distal l ymphadenopathy or other evidence of distant metastatic disease. Left gonadal vein embolization. Increased small left pleural effusion wi th associated atelectasis. Trace atelectasis in the right base. Several s table solid nodules in the right middle lobe, largest measure 6 mm (series 7 steve ge 31). Procedure Note Mohsen Calvert M.D. - 08/18/2020Format ting of this note might be different from the original. EXAM: CT PANCREAS ANGIOGRAM TRIPLE PHASE AND PELVIS WITH IV CONTRAST Including 3D image post-processing. Pancreatic Mass Morphologic Evaluation COMPARISON: Outside CT abdomen and pelvi s 08/30/2020 FINDINGS: Left arm PICC became malpositioned after contrast injection, currently with the tip directed superiorly into the interna l jugular vein. Tori Meeks notified and pt. is scheduled for reposi tioning in IR Radiology. Marked inflammatory changes about the pa ncreas and throughout the upper abdomen have significantly progressed since 10/2019. Multiple new and enlarging peripancreatic and upper abdominal fluid collections with components extending around the spleen, into the left retrope ritoneum, slightly into the beverly hepatis, and into the central mesentery. Exact measurements are difficult due to the irregular shape, however the largest collection just inferior to the pancreas measures approximately 18.5 x 7 .0 cm (series 8 image 172). Slightly heterogenous enhancement of the pancreas without definite findings of pancreatic necrosis. There is a small 1.1 cm low de nsity area in the head/neck of the pancreas(series 8/154) that is indetermi dylan for necrosis. The patient's known underlying adenocarcinoma is not visuali zed due to surrounding inflammation and edema, but when compared to prior CT's i t is situated along the medial aspect of the uncinate process just posterior to t he SMV and SMV/Portal vein confluence (series 8, image 171) . Redemonstration of a nonocclusive bland appearing thrombus in the main portal vein extending into the left portal vein with new extension into the right portal vein since 08/12/20 CT. Splenic ve in is narrowed but patent. Common bile duct stent with pneumobilia. Peripheral areas of focal arterial hyperenhancement in the liver do not per sist on portal venous phase are likely perfusional. No suspicious liver lesions . Small 5 mm nodular densities in the grea ter omentum(series 9/124) could be inflammatory but cannot exclude peritone al metastases. Scattered upper abdominal lymph nodes may be reactive. No distal l ymphadenopathy or other evidence of distant metastatic disease. Left gonadal vein embolization. Increased small left pleural effusion wi th associated atelectasis. Trace atelectasis in the right base. Several s table solid nodules in the right middle lobe, largest measure 6 mm (series 7 steve ge 31). IMPRESSION: 1. Malpositioned left arm PICC after con trast injection. Tip is currently directed superiorly into the internal ju gular vein. This should be repositioned prior to use. This was discussed with RICKY Marquez [id number] at 11:20am on 09/30/2019. 2. Peripancreatic inflammation is marked ly increased. Extensive enlarging peripancreatic and upper abdominal fluid collections. 3. Unable to evaluate the known pancreat ic malignancy due to significant surrounding inflammation. 4. 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 New extension of thrombus into the right portal vein. 5. Small left pleural effusion with atel ectasis, increased since previously. 6. Indeterminate but unchanged right mid dle lobe pulmonary nodules. Tori Meeks P.A.-C. [facility] [place] documented in this encounter Visit Diagnoses Diagnosis Malignant Neoplasm Of Pancreas Adenocarc inoma (HCC) Pancreatitis Post Endoscopic Retrograde Cholangiopancreatography (HCC) documented in this encounter Administered Medications Inactive Administered Medications - up to 3 most recent administrations Medication Order MAR Action Action Date Dose Rate Site iohexoL 350 mg iodine/mL solution Given 08/18/2020 11:08 AM LIVESTOCK INSPECTOR 140 mL 1-200 mL (OMNIPAQUE) 1-200 mL, intravenous, Once in imaging, contrast, Starting on Mon08/18/20 at 1010, For 1 dose, Imaging Protocol Orders, Dose per Radiant Medication Guidelines sodium chloride (PF) 0.9 % injection 1-1 00 mL Given 08/18/2020 11:08 AM LIVESTOCK INSPECTOR 50 mL 1-100 mL, intravenous, Once, On Mon08/18/20 at 1015, For 1 dose, Imaging Protocol Orders sodium chloride 0.9 % injection 10-30 mL Given 08/18/2020 10:26 AM LIVESTOCK INSPECTOR 10 mL 10-30 mL, intravenous, As needed, line care, Peripherally Inserted Central Catheter (PICC) Valved, Starting on Mon08/18/20 at 1024, Prior to and following infusion, between multiple consecutive infusions, prior to and following blood sampling, post blood transfusion. documented in this encounter Care Teams Long Wall Mining Machine Tender Relationship Specialty Start Date End Date Elsewhere, Pcp PCP - General Family Medicine 08/12/20 documented as of this encounter
--- OUTSIDE RECORDS SUMMARY | 2022-06-18 16:23 | XMS_ITS | Encounter Summary ---
:1965 Author Organization [facility] Address [address] [place] [address] Care Team Providers Name Role Phone Elsewhere, Pcp Primary Care Provider Unavailable Reason for Visit Reason Comments OPAT Normal Labs Encounter Details Date Type Department Care Team Description 09/02/2020 Clinical Communication Section of [facility] [place] T (Normal Labs) Infectious Diseases M, R.N. in [facility], [address] [place] [address] [place] [id number] [place], [place] [phone] (Work) [phone] Social History Tobacco Use Types Packs/Day Years [...] How often do you attend worship or yazdanism services? Never 01/15/2021 Do you [...] or slept in a snf (including now)? Sex Assigned at Date Recorded Male 08/18/2021 2:55 PM CLAIMS ANALYST documented as of this encounter Miscellaneous Notes Telephone Encounter - Irene Jimenez RRiazNRiaz - 09/02/2020 4:41 PM CST OPAT NOTE Infusion Provider: [facility], phone: [phone], fax: [phone] Antimicrobial(s) currently prescribed: See Med List Hyperlink in note Firm stop date: 09/24/20. PICC can be removed. Lab results from 09/02/2020 are viewable in the MCR record--listed as External Labs (received via fax from [facility]) Interpretation and action: The labs were satisfactory and acceptable. No change in plan as per OPAT Practice Guideline. MS ANALYST documented in this encounter Plan of Treatment Upcoming Encounters Date Type Specialty Care Team Description 06/22/2022 Lab Laboratory Medicine Maria Del Rosario Gomez AP RN, C.N.P., M.S. [address] [place] [phone] ([place] godoy) 06/22/2022 Infusion Oncology Maria Del Rosario Gomez APRN, C.N .P., M.S. [address] [place] [address] [phone] ([place] godoy) 06/29/2022 Lab Laboratory Medicine Maria Del Rosario Gomez AP RN, C.N.P., M.S. [address] [place] [address] [phone] ([place]j godoy) 06/29/2022 Infusion Oncology Maria Del Rosario Gomez APRN, C.N .P., M.S. [address] [place] [address] [phone] ([place]j godoy) documented as of this encounter Procedures Procedure Name Priority Date/Time Associated Diagnosis Comme nts CBC WITHOUT DIFFERENTIAL, Routine 09/02/2020 Re sults for this B procedure are i n the results section. CBC WITH DIFFERENTIAL, B Routine 09/02/2020 Res ults for this procedure are i n the results section. CBC WITH DIFFERENTIAL, B Routine 09/02/2020 Res ults for this procedure are i n the results section. HEMOGLOBIN, B Routine 09/02/2020 Results for th is procedure are i n the results section. ALANINE AMINOTRANSFERASE Routine 09/02/2020 Res ults for this (ALT), S/P procedure are i n the results section. ALKALINE PHOSPHATASE, S/P Routine 09/02/2020 Re sults for this procedure are i n the results section. CREATININE WITH EGFR, S/P Routine 09/02/2020 Re sults for this procedure are i n the results section. documented in this encounter Results ALT (Alanine Aminotransferase) (09/02/2020) athologist Signature EXT ALT 30 4 - 50 OTHER (SPECIFY IN TRANSCRIPTION COORDINATOR) Specimen (Source) Anatomical Location Collection Method / Collectio n Time Received Time / Laterality Volume Blood (Blood, Venous) Resulting Agency Comment [facility] Gina Aranda P.A.-C. LAB BLOOD ADD-ON Performing Organization Address City/State/ZIP Code Phon e Number OTHER (SPECIFY IN TRANSCRIPTION COORDINATOR) OTHER (SPECIFY IN TRANSCRIPTION COORDINATOR) N/A Alkaline Phosphatase (09/02/2020) athologist Signature EXT Alkaline 112 40 - 150 OTHER (SPECIFY Phosphatase IN TRANSCRIPTION COORDINATOR) Specimen (Source) Anatomical Location Collection Method / Collectio n Time Received Time / Laterality Volume Blood (Blood, Venous) Resulting Agency Comment [facility] Gina Aranda P.A.-C. LAB BLOOD ADD-ON Performing Organization Address City/[facility]/ZIP Code Phon e Number OTHER (SPECIFY IN TRANSCRIPTION COORDINATOR) OTHER (SPECIFY IN TRANSCRIPTION COORDINATOR) N/A Creatinine with Estimated GFR (09/02/2020) P athologist Signature EXT Creatinine 0.8 mg/dL OTHER (SPECIFY IN TRANSCRIPTION COORDINATOR) Specimen (Source) Anatomical Location Collection Method / Collectio n Time Received Time / Laterality Volume Blood (Blood, Venous) Resulting Agency Comment [facility] Gina Yehk P.A.-C. LAB BLOOD ADD-ON Performing Organization Address City/[facility] Phon e Number OTHER (SPECIFY IN TRANSCRIPTION COORDINATOR) OTHER (SPECIFY IN TRANSCRIPTION COORDINATOR) N/A CBC with Differential, Blood (09/02/2020) P athologist Signature EXT Eosinophils 0.26 OTHER (SPECIFY IN TRANSCRIPTION COORDINATOR) Specimen (Source) Anatomical Location Collection Method / Collectio n Time Received Time / Laterality Volume Blood (Blood, Venous) Resulting Agency Comment [facility] Gina Flores Tamaramok P.A.-C. LAB BLOOD ADD-ON Performing Organization Address [facility] Phon e Number OTHER (SPECIFY IN TRANSCRIPTION COORDINATOR) OTHER (SPECIFY IN TRANSCRIPTION COORDINATOR) N/A CBC without Differential (09/02/2020) P athologist Signature EXT White Blood 9.3 OTHER (SPECIFY Cell (WBC) IN TRANSCRIPTION COORDINATOR) Count Specimen (Source) Anatomical Location Collection Method / Collectio n Time Received Time / Laterality Volume Blood (Blood, Venous) Resulting Agency Comment [facility] Gina Sandra Mcdonaldmok P.A.-C. LAB BLOOD ADD-ON Performing Organization Address [facility] Phon e Number OTHER (SPECIFY IN TRANSCRIPTION COORDINATOR) OTHER (SPECIFY IN TRANSCRIPTION COORDINATOR) N/A CBC with Differential, Blood (09/02/2020) P athologist Signature EXT Platelet 391 OTHER (SPECIFY Count IN TRANSCRIPTION COORDINATOR) EXT Absolute 6.87 OTHER (SPECIFY Neutrophils IN TRANSCRIPTION COORDINATOR) Specimen (Source) Anatomical Location Collection Method / Collectio n Time Received Time / Laterality Volume Blood (Blood, Venous) Resulting Agency Comment [facility] Gina Sandra Mcdonaldmok P.A.-C. LAB BLOOD ADD-ON Performing Organization Address City/[facility] Phon e Number OTHER (SPECIFY IN TRANSCRIPTION COORDINATOR) OTHER (SPECIFY IN TRANSCRIPTION COORDINATOR) N/A Hemoglobin (09/02/2020) P athologist Signature EXT Hemoglobin 12.1 OTHER (SPECIFY IN TRANSCRIPTION COORDINATOR) Specimen (Source) Anatomical Location Collection Method / Collectio n Time Received Time / Laterality Volume Blood (Blood, Venous) Resulting Agency Comment [facility] Gina Sandra Mcdonaldmok P.A.-C. LAB BLOOD ADD-ON Performing Organization Address City/[facility] Phon e Number OTHER (SPECIFY IN TRANSCRIPTION COORDINATOR) OTHER (SPECIFY IN TRANSCRIPTION COORDINATOR) N/A documented in this encounter Visit Diagnoses Not on filedocumented in this encounter Care Teams Crm Solution Architect Relationship Specialty Start Date End Date Elsewhere, Pcp PCP - General Family Medicine 08/12/20 documented as of this encounter
--- OUTSIDE RECORDS SUMMARY | 2022-06-18 16:23 | XMS_ITS | Encounter Summary ---
:1965 Author Organization [facility] Address [address] [place] [address] Care Team Providers Name Role Phone Elsewhere, Pcp Primary Care Provider Unavailable Reason for Visit Reason Comments OPAT Normal Labs Encounter Details Date Type Department Care Team Description 08/28/2020 Clinical Communication Section of Sandy Kinney (Normal Labs) Infectious Diseases M, R.N. in [facility] [phone] [place] (Work) [address] [place] [address] Social History Tobacco Use Types Packs/Day Years [...] How often do you attend rastafari or hoahaoism services? Never 01/15/2021 Do you [...] slept in a senior living (including now)? 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 - 08/28/2020 11:33 AM CST OPAT NOTE Infusion Provider: [facility] Infusion, phone: [phone], fax: [phone] Antimicrobial(s) currently prescribed: See Med List Hyperlink in note Firm stop date: 09/24/20. PICC can be removed. Lab results from 08/27/2020 are viewable in the MCR record--listed as External Labs (received via fax from [facility]) Interpretation and action: The labs were satisfactory and acceptable. No change in plan as per OPAT Practice Guideline. I called the [facility] at and have asked for the missing CBC to be faxed as it is missing from lab results received. Lab personnel stated they would send it. I provided ourfax number. Addendum: CBC with diff results received and have been entered and uploaded. The labs were satisfactory and acceptable. No change in plan as per OPAT Practice Guideline. OMER ORDER CLERK documented in this encounter Plan of Treatment Upcoming Encounters Date Type Specialty Care Team Description 06/22/2022 Lab Laboratory Medicine Maria Del Rosario Gomez AP RN, C.N.P., M.S. [address] [place] [address] [phone] (Mj godoy) 06/22/2022 Infusion Oncology Maria Del Rosario Gomez APRN, C.N .P., M.S. [address] [place] [address] [phone] (Mj godoy) 06/29/2022 Lab Laboratory Medicine Maria Del Rosario Gomez AP RN, C.N.P., M.S. [address] [place] [address] [phone] (Mj godoy) 06/29/2022 Infusion Oncology Maria Del Rosario Gomez APRN, C.N .P., M.S. [address] [place] [address] [phone] (Mj godoy) documented as of this encounter Procedures Procedure Name Priority Date/Time Associated Diagnosis Comme nts CBC WITHOUT DIFFERENTIAL, Routine 08/27/2020 Re sults for this B procedure are i n the results section. CBC WITH DIFFERENTIAL, B Routine 08/27/2020 Res ults for this procedure are i n the results section. HEMOGLOBIN, B Routine 08/27/2020 Results for th is procedure are i n the results section. ALANINE AMINOTRANSFERASE Routine 08/27/2020 Res ults for this (ALT), S/P procedure are i n the results section. ALKALINE PHOSPHATASE, S/P Routine 08/27/2020 Re sults for this procedure are i n the results section. CREATININE WITH EGFR, S/P Routine 08/27/2020 Re sults for this procedure are i n the results section. documented in this encounter Results CBC without Differential (08/27/2020) athologist Signature EXT White 8.2 [facility] (WBC) Count LABORATORY Specimen (Source) Anatomical Location Collection Method / Collectio n Time Received Time / Laterality Volume Blood (Blood, Venous) Narrative This result has an attachment that is no t available. Jewel Cullen M.D. LAB BLOOD ADD-ON Performing Organization Address City/[facility]/ZIP [facility] Phon e Number [facility] [address] [place] [address] CBC with Differential, Blood (08/27/2020) athologist Signature EXT Platelet 517 [facility] LABORATORY EXT Absolute 5.93 [facility] LABORATORY Specimen (Source) Anatomical Location Collection Method / Collectio n Time Received Time / Laterality Volume Blood (Blood, Venous) Jewel Cullen M.D. LAB BLOOD ADD-ON Performing Organization Address City/[facility]/ZIP Code Phon e Number [facility] [address] [place] [address] Hemoglobin (08/27/2020) athologist Signature EXT Hemoglobin 10.8 [facility] Specimen (Source) Anatomical Location Collection Method / Collectio n Time Received Time / Laterality Volume Blood (Blood, Venous) Jewel Cullen M.D. LAB BLOOD ADD-ON Performing Organization Address City/[facility]/ZIP Code Phon e Number [facility] [address] [place] [address] ALT (Alanine Aminotransferase) (08/27/2020) athologist Signature EXT ALT 29 4 - 50 [facility] Specimen (Source) Anatomical Location Collection Method / Collectio n Time Received Time / Laterality Volume Blood (Blood, Venous) Narrative This result has an attachment that is no t available. Jewel Cullen M.D. LAB BLOOD ADD-ON Performing Organization Address City/[facility] Phon e Number [facility] [address] [place] [address] Alkaline Phosphatase (08/27/2020) athologist Signature EXT Alkaline 116 40 - 150 [facility] LABORATORY Specimen (Source) Anatomical Location Collection Method / Collectio n Time Received Time / Laterality Volume Blood (Blood, Venous) Jewel Cullen M.D. LAB BLOOD ADD-ON Performing Organization Address City/[facility] Phon e Number [facility] [address] [place] [address] Creatinine with Estimated GFR (08/27/2020) athologist Signature EXT Creatinine 0.8 mg/dL [facility] Specimen (Source) Anatomical Location Collection Method / Collectio n Time Received Time / Laterality Volume Blood (Blood, Venous) Narrative This result has an attachment that is no t available. Jewel Cullen M.D. LAB BLOOD ADD-ON Performing Organization Address City/[facility] Phon e Number [facility] [address] [place] [address] documented in this encounter Visit Diagnoses Not on filedocumented in this encounter Care Teams Mr Teacher Relationship Specialty Start Date End Date Elsewhere, Pcp PCP - General Family Medicine 08/12/20 documented as of this encounter
--- OUTSIDE RECORDS SUMMARY | 2022-06-18 16:23 | XMS_ITS | Encounter Summary ---
:1965 Author Organization [facility] Address [address] [place] [address] Care Team Providers Name Role Phone Elsewhere, Pcp Primary Care Provider Unavailable Encounter Details Date Type Department Care Team Description 08/26/2020 Clinical Communication Division of Jeanna Hepatobiliary and Tori Sanchez Pancreas Surgery in [facility] [place], [place] [address] [facility] [address] [place] [phone] [phone] Social History Tobacco Use Types Packs/Day Years [...] How often do you attend restorationist or anabaptism services? Never 01/15/2021 Do you [...] or slept in a prison (including now)? 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 - 08/26/2020 3:40 PM SAFETY CLOTHING AND EQUIPMENT DEVELOPER Spoke with patient. Refill of oxycodone sent to his local pharmacy. He will require this until his pancreatitis resolves. He is currently taking one 5 mg tablet of oxycodone every 6-8 hours along with 1 tab of Tylenol and this is controlling his pain well. I am happy to provide him refills until his pain either improved or he is seen in the Pancreas Clinic. His other issue is disability paperwork. He works for the [employer] and qualifies for 'para', whichwill give him 9-12 months off of work while he is going through treatment. This paperwork needs a signature from 2 separate doctors. He is going to see if his primary care doctor will fill out 1 of them and the 2nd should technically be filled out by his oncologist but he does not have an appointment with Oncology until September. He will contact me with an update once he receives the paperwork. TY CLOTHING AND EQUIPMENT DEVELOPER Telephone Encounter - Marycruz Thurston - 08/26/2020 12:04 PM CST Patient wishing to speak with you regarding refill for pain medication, and also he needs some documentation for his work about his upcoming appointments. TY CLOTHING AND EQUIPMENT DEVELOPER documented in this encounter Plan of Treatment Upcoming Encounters Date Type Specialty Care Team Description 06/22/2022 Lab Laboratory Medicine Maria Del Rosario Gomez AP RN, C.N.P., M.S. [address] [place] [address] [phone] (Mj godoy) 06/22/2022 Infusion Oncology Maria Del Rosario Gomez APRN, C.N .P., M.S. [address] [place] [address] [phone] (Mj godoy) 06/29/2022 Lab Laboratory Medicine Maria Del Rosario Gomez AP RN, C.N.P., M.S. [address] [place] [address] [phone] (Wo rk) 06/29/2022 Infusion Oncology Maria Del Rosario Gomez APRN, C.N .P., M.S. [address] [place], [place] [phone] (Mj rk) documented as of this encounter Visit Diagnoses Not on filedocumented in this encounter Care Teams Personal Injury Specialist Relationship Specialty Start Date End Date Elsewhere, Pcp PCP - General Family Medicine 08/12/20 documented as of this encounter
--- OUTSIDE RECORDS SUMMARY | 2022-06-18 16:23 | XMS_ITS | Encounter Summary ---
:1965 Author Organization [facility] Address [address] [place] [address] Care Team Providers Name Role Phone Elsewhere, Pcp Primary Care Provider Unavailable Encounter Details Date Type Department Care Team Description 08/17/2020 Episode Changes Section of Infectious Taina Oconnell Diseases in [place], [facility] [address] [place], [place] [address] [facility] [address] [place] [address] [phone] Social History Tobacco Use Types Packs/Day Years [...] How often do you attend sabianism or episcopalian services? Never 01/15/2021 Do you [...] or slept in a residential (including now)? 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 [address] [place] [address] [phone] (Wo rk) 06/22/2022 Infusion Oncology Maria Del Rosario Gomez APRN, C.N .P., M.S. [address] [place] [address] [phone] (Wo rk) 06/29/2022 Lab Laboratory Medicine Maria Del Rosario Gomez AP RN, C.N.P., M.S. [address] [place] [address] [phone] (Wo rk) 06/29/2022 Infusion Oncology Maria Del Rosario Gomez APRN, C.N .P., M.S. [address] [place] [address] [phone] (Wo rk) documented as of this encounter Visit Diagnoses Not on filedocumented in this encounter Care Teams In File Operator Relationship Specialty Start Date End Date Elsewhere, Pcp PCP - General Family Medicine 08/12/20 documented as of this encounter
--- OUTSIDE RECORDS SUMMARY | 2022-06-18 16:23 | XMS_ITS | Encounter Summary ---
:1965 Author Organization [facility] Address [address] [place] [address] Care Team Providers Name Role Phone Elsewhere, Pcp Primary Care Provider Unavailable Reason for Visit Reason Comments COVID Inquiry Encounter Details Date Type Department Care Team Description 09/09/2020 Clinical Communication Division of LEONOR Meeks Hepatobiliary and Tori Sanchez Pancreas Surgery in [place] [place], [place] [address] [facility] [address] [place] [phone] Social History Tobacco Use Types Packs/Day Years [...] How often do you attend sikhism or tenriism services? Never 01/15/2021 Do you [...] Date Recorded Male 08/18/2021 2:55 PM MANAGER ACQUISITION documented as of this encounter Miscellaneous Notes Telephone Encounter - Lacey Christina - 09/09/2020 11:11 AM CST COVID-19 Nurse Line Screening ASSESSMENT Combo COVID + Upper Respiratory Infection (URI) Screening Select the most appropriate pathway: : Adult Have you had close contact* with a person who has a LABORATORY CONFIRMED case of COVID-19 in the past 14 days?: No (Continue Screening) In the last 48 hours, have you had a fever* OR symptoms that are unrelated to a preexisting illness?: No symptoms noted (Continue Screening) Have you tested positive for COVID-19 in the last 90 days?: No (Continue Screening) Have you been advised to undergo testing or are you requesting testing?: Yes (End Screening)- Ok to send for testing PLAN Endpoint recommendation: Screening positive, testing indicated, advised to be swabbed for COVID-19 Only , sent to [facility] Location: [facility]. You will be called with the location and time to show up. Testing hours are M-F 7 am to 5:30 pm and Sat-Sun 7 am to 3:30 pm. and Please avoid using public transportation per CDC recommendation. If you do not have personal transportation please self-quarantine until a personal transportation option is available. Care Points: -Wash hands frequently with soap and water for at least 20 seconds -If soap and water are not available, use a hand wood crew supervisor -Avoid touching your eyes, nose and mouth. -Clean and disinfect high-touch surfaces routinely. -Wear a mask over your nose and mouth. A cloth face cover is not a substitute for social distancing -Continue to keep about 6 feet between yourself and others. -Avoid public areas and public transportation. -Find new ways to connect with family and friends, get support and share feelings. -Seek emergent care if any of the following occur Trouble breathing Bluish lips or face Persistent pain or pressure in the chest New confusion or inability to rouse. -Notify your regular care provider of any new or worsening symptoms. Asymptomatic without exposure Carepoints: If your COVID-19 result is negative and you become symptomatic consider retesting after 72 hours. Education: Not applicable Patient agreeable to plan of care: Yes The following references were used: [facility] novel coronavirus (COVID- 19) resources GER ACQUISITION Telephone Encounter - Tori Meeks P.A.-C. - 09/09/2020 10:46 AM MANAGER ACQUISITION See other communication message from today. GER ACQUISITION Telephone Encounter - Lola Mejia - 09/09/2020 10:25 AM CST Pt is here today having tests and thinks he has an infection - due to having a fever. He's wonderingif he should have some labs drawn while he is here? He is waiting to leave town, until he hears fromus. Thoughts? GER ACQUISITION documented in this encounter Plan of Treatment Upcoming Encounters Date Type Specialty Care Team Description 06/22/2022 Lab Laboratory Medicine Maria Del Rosario Gomez AP RN, C.N.P., M.S. [address] [place] [phone] (Mj godoy) 06/22/2022 Infusion Oncology Maria Del Rosario Gomez APRN, C.N .P., M.S. [address] [place] [address] [phone] (Mj godoy) 06/29/2022 Lab Laboratory Medicine Mari aDel Rosario Gomez AP RN, C.N.P., M.S. [address] [place] [address] [phone] (Mj godoy) 06/29/2022 Infusion Oncology Maria Del Rosario Gomez APRN, C.N .P., M.S. [address] [place] [address] [phone] (Mj godoy) documented as of this encounter Results Lipase (09/09/2020 11:49 AM MANAGER ACQUISITION) athologist Signature Lipase, S 15 13 - 60 U/L 09/09/2020 DTL 12:35 PM MANAGER ACQUISITION Specimen Anatomical Collection Method Collection Time Receive d Time (Source) Location / / Volume Laterality Blood (Blood, 09/09/2020 11:49 09/09/2020 Venous) AM MANAGER ACQUISITION 12:05 PM MANAGER ACQUISITION Tori Meeks P.A.-C. LAB BLOOD ADD-ON Performing Organization Address City/State/ZIP Code Phon e Number [facility] - [address] [place], [place] [address] [place] [address] [facility] [address] (ABNORMAL) Comprehensive Metabolic Panel (09/09/2020 11:49 AM MANAGER ACQUISITION) athologist Signature Potassium, S 4.4 3.6 - 5.2 09/09/2020 DTL mmol/L 12:43 PM MANAGER ACQUISITION Sodium, S 132 (L) 135 - 145 09/09/2020 DTL mmol/L 12:43 PM MANAGER ACQUISITION Chloride, S 97 (L) 98 - 107 09/09/2020 DTL mmol/L 12:43 PM MANAGER ACQUISITION Bicarbonate, S 25 22 - 29 09/09/2020 DTL mmol/L 12:43 PM MANAGER ACQUISITION Anion Gap 10 7 - 15 09/09/2020 DTL 12:43 PM MANAGER ACQUISITION BUN (Blood Urea 13 8 - 24 09/09/2020 DTL Nitrogen), S mg/dL 12:43 PM MANAGER ACQUISITION Creatinine 0.93 0.74 - 09/09/2020 DTL 1.35 mg/dL 12:43 PM MANAGER ACQUISITION eGFR-Non >90 >=60 09/09/2020 DTL Black/ mL/min/BSA 12:43 PM MANAGER ACQUISITION Jordanian Comment: ----ADDITIONAL INFORMATION---- Estimated GFR calculated using the 2009 CKD_EPI creatinine equation. eGFR-Black/ >90 >=60 mL/min/BSA 2019 12:43 PM MANAGER ACQUISITION DTL Comment: ----ADDITIONAL INFORMATION---- Estimated GFR calculated using the 2009 CKD_EPI creatinine equation. Calcium, Total, S 9.0 8.6 - 10.0 mg/dL 09/09/2020 12:4 3 PM MANAGER ACQUISITION DTL Glucose, S 115 70 - 140 mg/dL 09/09/2020 12:43 PM MANAGER ACQUISITION DTL Protein, Total, S 6.9 6.3 - 7.9 g/dL 09/09/2020 12:43 PM MANAGER ACQUISITION DTL Albumin, S 3.4 (L) 3.5 - 5.0 g/dL 09/09/2020 12:43 PM MANAGER ACQUISITION DTL Aspartate Aminotransferase 200 (H) 8 - 48 U/L 09/09/2020 1 2:43 PM MANAGER ACQUISITION DTL (AST), S Alkaline Phosphatase, S 554 (H) 40 - 129 U/L 09/09/2020 12 :43 PM MANAGER ACQUISITION DTL Alanine Aminotransferase 215 (H) 7 - 55 U/L 09/09/2020 12: 43 PM MANAGER ACQUISITION DTL (ALT), S Bilirubin, Total, S 1.0 <=1.2 mg/dL 09/09/2020 12:43 P M MANAGER ACQUISITION DTL Specimen Anatomical Collection Method Collection Time Receive d Time (Source) Location / / Volume Laterality Blood (Blood, 09/09/2020 11:49 09/09/2020 Venous) AM MANAGER ACQUISITION 12:05 PM MANAGER ACQUISITION Tori Meeks P.A.-C. LAB BLOOD ADD-ON Performing Organization Address City/State/[facility] Code Phon e Number [facility] - [address] (ABNORMAL) Bilirubin, Direct (09/09/2020 11:49 AM MANAGER ACQUISITION) P athologist Signature Bilirubin, 0.6 (H) 0.0 - 0.3 09/09/2020 DTL Direct, S mg/dL 12:43 PM MANAGER ACQUISITION Specimen Anatomical Collection Method Collection Time Receive d Time (Source) Location / / Volume Laterality Blood (Blood, 09/09/2020 11:49 09/09/2020 Venous) AM MANAGER ACQUISITION 12:05 PM MANAGER ACQUISITION Tori Meeks P.A.-C. LAB BLOOD ADD-ON Performing Organization Address City/State/[facility] Phon e Number [facility] - [address] (ABNORMAL) CBC without Differential (09/09/2020 11:49 AM MANAGER ACQUISITION) [facility] gist Method Time Signature Hemoglobin 10.8 (L) 13.2 - 09/09/2020 DTL 16.6 g/dL 12:12 PM MANAGER ACQUISITION Hematocrit 33.1 (L) 38.3 - 09/09/2020 DTL 48.6 % 12:12 PM MANAGER ACQUISITION Erythrocytes 4.01 (L) 4.35 - 09/09/2020 DTL 5.65 12:12 PM MANAGER ACQUISITION x10(12)/L MCV 82.5 78.2 - 09/09/2020 DTL 97.9 fL 12:12 PM MANAGER ACQUISITION RBC Distrib Width 12.8 11.8 - 09/09/2020 DTL 14.5 % 12:12 PM MANAGER ACQUISITION Platelet Count 324 (H) 135 - 317 09/09/2020 DTL x10(9)/L 12:12 PM MANAGER ACQUISITION Leukocytes 11.9 (H) 3.4 - 9.6 09/09/2020 DTL x10(9)/L 12:12 PM MANAGER ACQUISITION Specimen Anatomical Collection Method Collection Time Receive d Time (Source) Location / / Volume Laterality Blood (Blood, 09/09/2020 11:49 09/09/2020 Venous) AM MANAGER ACQUISITION 12:05 PM MANAGER ACQUISITION Tori Meeks P.A.-C. LAB BLOOD ADD-ON Performing Organization Address City/State/ZIP Code Phon e Number [facility] - [address] [place], [place] [address] [place] [address] [facility] 200 [facility] documented in this encounter Visit Diagnoses Diagnosis Fever Of Unknown Origin - Primary Malignant Neoplasm Of Pancreas (HCC) Pancreatitis Post Endoscopic Retrograde Cholangiopancreatography (HCC) documented in this encounter Care Teams Toe Lining Closer Relationship Specialty Start Date End Date Elsewhere, Pcp PCP - General Family Medicine 08/12/20 documented as of this encounter
--- OUTSIDE RECORDS SUMMARY | 2022-06-18 16:23 | XMS_ITS | Encounter Summary ---
:1965 Author Organization [facility] Address [address] [place] [address] Care Team Providers Name Role Phone Elsewhere, Pcp Primary Care Provider Unavailable Encounter Details Date Type Department Care Team Description 08/19/2020 Clinical Communication Division of Rachana Black G[place]ology in [place] [address] [facility] [address] [place] [phone] Social History Tobacco Use Types Packs/Day Years [...] How often do you attend congregation or jew services? Never 01/15/2021 Do you [...] or slept in a halfway (including now)? Sex Assigned at Date Recorded Male 08/18/2021 2:55 PM RN PROCEDURE documented as of this encounter Miscellaneous Notes Telephone Encounter - Rachana Black M.D. - 08/20/2020 2:58 PM RN PROCEDURE I thought I am on vacation on when [place] asked me to see on . I thought my vacation dates would be known before these requests. I will see the patient on for 14 September even if I am not in the clinic because Dr. Travis discussedthis case with me and we have to accommodate the patient. Now please put him at 2:00 p.m. with the caveat there may be a little bit of wait. Thanks PROCEDURE Telephone Encounter - Rachana Black M.D. - 08/19/2020 4:52 PM RN PROCEDURE Please look at my calendar ers and see where I am on September 09. He also needs an MRCP as I have given a phone consultation. Thanks PROCEDURE documented in this encounter Plan of Treatment Upcoming Encounters Date Type Specialty Care Team Description 06/22/2022 Lab Laboratory Medicine Maria Del Rosario Gomez AP RN, C.N.P., M.S. [address] [place] [phone] (Mj godoy) 06/22/2022 Infusion Oncology Maria Del Rosario Gomez APRN, Remy.N .P., M.S. [address] [place] [address] [phone] (Wo rk) 06/29/2022 Lab Laboratory Medicine Maria Del Rosario Gomez AP RN, C.N.P., M.S. [address] [place] [address] [phone] (Wo rk) 06/29/2022 Infusion Oncology Maria Del Rosario Gomez APRN, C.N .P., M.S. [address] [place] [address] [phone] (Wo rk) documented as of this encounter Visit Diagnoses Not on filedocumented in this encounter Care Teams Baked Goods Stock Clerk Relationship Specialty Start Date End Date Elsewhere, Pcp PCP - General Family Medicine 08/12/20 documented as of this encounter
--- OUTSIDE RECORDS SUMMARY | 2022-06-18 16:23 | XMS_ITS | Encounter Summary ---
:1965 Author Organization [facility] Address [address] [place] [address] Care Team Providers Name Role Phone Elsewhere, Pcp Primary Care Provider Unavailable Reason for Referral MRI/CAT/PET Scan (Routine) - Closed Specialty Diagnoses / Procedures Referred By Contact Refer red To Contact Radiology Diagnoses Malignant Neoplasm Of Pancreas (HCC) Pancreatitis Post Endoscopic Retrograde Cholangiopancreatography (HCC) [facility] Procedures MR Abdomen MRCP without and with IV Contrast Chanelle, M.S. [address] [place] [phone] Referral ID Status Reason Start Date Expiration Date Visits Requ ested Visits Authorized [id number] Closed 08/19/2020 08/19/2021 1 1 SE COUNSELOR Reason for Visit MRI/CAT/PET Scan (Routine) - Closed Specialty Diagnoses / Procedures Referred By Contact Refer red To Contact Radiology Diagnoses Malignant Neoplasm Of Pancreas (HCC) Pancreatitis Post Endoscopic Retrograde Cholangiopancreatography (HCC) Reji Travis [facility] Procedures MR Abdomen MRCP without and with IV Contrast Chanelle, M.S. [address] [place] [phone] Referral ID Status Reason Start Date Expiration Date Visits Requ ested Visits Authorized [id number] Closed 08/19/2020 08/19/2021 1 1 Encounter Details Date Type Department Care Team Description 09/09/2020 Hospital Department of Truty, Reji Malignant Neop lasm Of Pancreas (HCC); Encounter Radiology, Hernan Wilks M.D., Pancreatiti s Post Endoscopic Retrograde Cholangiopancreatography (HCC) Building, in [facility] [place] 200 [facility] [phone] Social History Tobacco Use Types Packs/Day Years [...] How often do you attend congregation or confucianism services? Never 01/15/2021 Do you [...] at Date Recorded Male 08/18/2021 2:55 PM CRUISE COUNSELOR documented as of this encounter Medications at Time of Discharge Medication Sig Dispensed Refills Start Date End Date acetaminophen (TYLENOL) Take 1 tablet (500 0 01/202001/01/2021 500 mg tablet mg total) by mouth every 6 (six) hours. ascorbic Take 1 packet by 0 09/12/19 21 [id number] mouth daily as (Emergen-C) 1,000 mg needed. powder effervescent in packet enoxaparin (LOVENOX) 80 Inject 0.8 mL (80 [...] mouth daily. documented as of this encounter Nursing Notes Sandy Isaac R.N. - 09/09/2020 7:45 AM CST Pt has PICC and stated that he doesn't want it used for exam and requests a peripheral IV for MRI contrast. Pt had orbits xray completed and given OK to start IV. SE COUNSELOR documented in this encounter Plan of Treatment Upcoming Encounters Date Type Specialty Care Team Description 06/22/2022 Lab Laboratory Medicine Maria Del Rosario Gomez AP RN, C.N.P., M.S. [address] [place] [phone] (Mj godoy) 06/22/2022 Infusion Oncology Maria Del Rosario Gomez APRN, C.N .P., M.S. [address] [place] [phone] (Mj godoy) 06/29/2022 Lab Laboratory Medicine Maria Del Rosario Gomez AP RN, C.N.P., M.S. [address] [place] [phone] (Mj godoy) 06/29/2022 Infusion Oncology Maria Del Rosario Gomez APRN, C.N .P., M.S. [address] [place] [phone] (Mj godoy) documented as of this encounter Procedures Procedure Name Priority Date/Time Associated Diagnosis Comme nts MR ABDOMEN RAD - Routine 09/09/2020 Malignant Neoplasm Of Resul ts for MRCP WITHOUT (most 9:59 AM CRUISE COUNSELOR Pancreas (HCC) this AND WITH IV inpatients and Pancreatitis Post Endoscop ic procedure are CONTRAST all Retrograde in the outpatients) Cholangiopancreatography res ults (HCC) section. documented in this encounter Results MR Abdomen MRCP without and with IV Contrast (09/09/2020 9:59 AM CRUISE COUNSELOR) Anatomical Region Laterality Modality Abdomen, Abdominal RST LOS, Abdominal ARZ LOS, N/A Magnetic Resonance Abdominal FLA LOS Specimen (Source) Anatomical Collection Method Collection Time Re ceived Time Location / / Volume Laterality 09/09/2020 10:12 AM CRUISE COUNSELOR Impressions 09/09/2020 10:40 AM CRUISE COUNSELOR 1. Slight interval decrease size of the peripancreatic fluid collections as compared to 08/18/2020. The primary pancr eatic malignancy is not well visualized. Non dilated pancreatic duct, however the re is non visualization of the duct at the level of the pancreatic body. Narrative 09/09/2020 10:40 AM CRUISE COUNSELOR EXAM: ??MR ABDOMEN MRCP WITHOUT AND WITH IV CONTRAST 3D maximum intensity projections/volume renderings were created on an independent workstation as ordered by th e treating provider and reviewed by the radiologist for biliary and pancreatic d uct visualization. COMPARISON: ??PET CT 08/19/2020, CT 2019 FINDINGS: Slightly decreased size of the extensive peripancreatic fluid collections extending into the retroperitoneal and a round the stomach as compared to CT 08/18/2020. These collections demonstrate peripheral enhancement with areas of high T2 signal and high T1 signal repres enting complex fluid (series 16, image 52). ??The retroperitoneal fluid collect ion tracks inferiorly along the left paracolic gutter (series 15, image 53). There is similar enhancement of the ely ining pancreatic parenchyma as compared to 08/18/2020 (series 14, image 79). The peripancreatic fluid collection infe rior to the pancreas has decreased in size compared to 08/18/2020 now measuring up to 3.8 cm in width, previously 5.1 cm. The patient's primary pancreatic maligna ncy is not well visualized. On MRCP images the pancreatic duct is no t dilated, however the portion of the duct within the body is not visualized. No significant intrahepatic biliary duct al dilation. 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 The soft tissue nodules noted on prior C T are less well visualized on today's exam. Common bile duct stent with small volume pneumobilia. ??Air is noted within the gallbladder. No hepatic lesion identified. Normal adrenal glands. Enlarged spleen measuring 14.4 cm. Subcentimeter right renal cyst. Bibasilar opacities, left greater than r ight. No suspicious osseous lesions. Procedure Note Reena Velásquez M.D. - 09/09/2020For matting of this note might be different from the original. EXAM: MR ABDOMEN MRCP WITHOUT AND WITH I V CONTRAST 3D maximum intensity projections/volume renderings were created on an independent workstation as ordered by nilesh griffith treating provider and reviewed by the radiologist for biliary and pancreatic d uct visualization. COMPARISON: PET CT 08/19/2020, CT 08/18/20 20 FINDINGS: Slightly decreased size of the extensive peripancreatic fluid collections extending into the retroperitoneal and a round the stomach as compared to CT 08/18/2020. These collections demonstrate peripheral enhancement with areas of high T2 signal and high T1 signal repres enting complex fluid (series 16, image 52). The retroperitoneal fluid collectio n tracks inferiorly along the left paracolic gutter (series 15, image 53). There is similar enhancement of the ely ining pancreatic parenchyma as compared to 08/18/2020 (series 14, image 79). The peripancreatic fluid collection infe rior to the pancreas has decreased in size compared to 08/18/2020 now measuring up to 3.8 cm in width, previously 5.1 cm. The patient's primary pancreatic maligna ncy is not well visualized. On MRCP images the pancreatic duct is no t dilated, however the portion of the duct within the body is not visualized. No significant intrahepatic biliary duct al dilation. 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 The soft tissue nodules noted on prior C T are less well visualized on today's exam. Common bile duct stent with small volume pneumobilia. Air is noted within the gallbladder. No hepatic lesion identified. Normal adrenal glands. Enlarged spleen measuring 14.4 cm. Subcentimeter right renal cyst. Bibasilar opacities, left greater than r ight. No suspicious osseous lesions. IMPRESSION: 1. Slight interval decrease size of the peripancreatic fluid collections as compared to 08/18/2020. The primary pancr eatic malignancy is not well visualized. Non dilated pancreatic duct, however the re is non visualization of the duct at the level of the pancreatic body. Reji Travis M.D., M.S. IMG MRI PROCEDURES documented in this encounter Visit Diagnoses Diagnosis Malignant Neoplasm Of Pancreas (HCC) Pancreatitis Post Endoscopic Retrograde Cholangiopancreatography (HCC) documented in this encounter Administered Medications Inactive Administered Medications - up to 3 most recent administrations Medication Order MAR Action Action Date Dose Rate Site gadobutrol injection 0.01-30 mL Given 09/09/2020 9:46 AM CRUISE COUNSELOR 9 m L (GADAVIST) 0.01-30 mL, intravenous, Once in imaging, contrast, Starting on Mon09/09/20 at 0822, For 1 dose, Imaging Protocol Orders, Dose per Radiant Medication Guidelines sodium chloride (PF) 0.9 % injection 1-1 00 mL Given 09/09/2020 9:47 AM CRUISE COUNSELOR 40 mL 1-100 mL, intravenous, Once, On Mon09/09/20 at 0830, For 1 dose, Imaging Protocol Orders documented in this encounter Care Teams Back Hoe Machine Operator Relationship Specialty Start Date End Date Elsewhere, Pcp PCP - General Family Medicine 08/12/20 documented as of this encounter
--- OUTSIDE RECORDS SUMMARY | 2022-06-18 16:23 | XMS_ITS | Encounter Summary ---
:1965 Author Organization [facility] Address [address] [place] [id number] Care Team Providers Name Role Phone Elsewhere, Pcp Primary Care Provider Unavailable Encounter Details Date Type Department Care Team Description 09/09/2020 Hospital Department of Reji Travis Malignant Neop lasm Of Pancreas (HCC); Encounter Radiology, Chanelle Wilks, Pancreatitis Po st Endoscopic Retrograde Cholangiopancreatography (HCC) Giorgi Brooks [facility], in [address] [place] [address], [address] [place] [phone] Social History Tobacco Use Types Packs/Day Years [...] How often do you attend christianity or protestant services? Never 01/15/2021 Do you [...] at Date Recorded Male 08/18/2021 2:55 PM SHOE LACER documented as of this encounter Medications at Time of Discharge Medication Sig Dispensed Refills Start Date End Date ertapenem 1 g in NaCl Infuse 1 g into a 1 each 0 09/09/ 020 09/10/2020 0.9% 100 mL IVPB venous catheter daily for 1 day. To be given in ITC acetaminophen (TYLENOL) Take 1 tablet (500 0 01/202001/01/2021 500 mg tablet mg total) by mouth every 6 (six) hours. ascorbic Take 1 packet by 0 09/12/19 21 swee-[id number]-fvk mouth daily as (Emergen-C) 1,000 mg needed. powder effervescent in packet enoxaparin (LOVENOX) 80 Inject 0.8 mL (80 120 Syringe 0 01/202010/30/2020 mg/0.8 mL injection mg total) under the skin 2 (two) times a day. ertapenem 1 g in NaCl Infuse 1 g into a 16 each 0 020 09/12/2020 0.9% 100 mL IVPB venous catheter daily for 16 days. End date: 09/24 oxyCODONE (ROXICODONE) 5 Take 1 tablet (5 [...] Gomez AP RN, C.N.P., M.S. [address] [place] [phone] (Wo rk) 06/22/2022 Infusion Oncology Maria Del Rosario Gomez APRN, C.N .P., M.S. [address] [place], [place] [phone] (Mj godoy) 06/29/2022 Lab Laboratory Medicine Maria Del Rosario Gomez AP RN, C.N.P., M.S. [address] [place], [place] [phone] (Mj godoy) 06/29/2022 Infusion Oncology Maria Del Rosario Gomez APRN, C.N .Pamela., M.S. [address] [place], [place] [phone] (Mj godoy) documented as of this encounter Procedures Procedure Name Priority Date/Time Associated Diagnosis Comme nts DX ORBITS 4+ RAD - Routine 09/09/2020 Malignant Neoplasm Of Resul ts for VIEWS (most 7:57 AM SHOE LACER Pancreas (HCC) this inpatients and Pancreatitis Post Endoscop ic procedure are all Retrograde in the outpatients) Cholangiopancreatography res ults (HCC) section. documented in this encounter Results DX Orbits 4+ Views (09/09/2020 7:57 AM SHOE LACER) Anatomical Region Laterality Modality Skull, Neuroradiology RST LOS, Neuroradiology ARZ LOS, N/A Digital Radiography Muskuloskeletal FLA LOS Specimen (Source) Anatomical Collection Method Collection Time Re ceived Time Location / / Volume Laterality 09/09/2020 7:59 AM SHOE LACER Impressions 09/09/2020 8:12 AM SHOE LACER No radiopaque foreign body projecting over the orbits. Cervical spondylosis and facet hypertrophy. Narrative 09/09/2020 8:12 AM SHOE LACER EXAM: ??DX ORBITS 4+ VIEWS Procedure Note Trell Huertas M.D. - 09/09/2020Format ting of this note might be different from the original. EXAM: DX ORBITS 4+ VIEWS IMPRESSION: No radiopaque foreign body projecting ov er the orbits. Cervical spondylosis and facet hypertrophy. Luz Elena Dubon M.D. IMT[facility] DIAGNOSTIC IMAGING PROCE KAVIN documented in this encounter Visit Diagnoses Diagnosis Malignant Neoplasm Of Pancreas (HCC) Pancreatitis Post Endoscopic Retrograde Cholangiopancreatography (HCC) documented in this encounter Additional Health Concerns Infection Onset Date Last Indicated Resolved Time COVID19 Pending 09/09/2020 09/09/2020 09/09/2020 10:46 PM SHOE LACER documented as of this encounter Care Teams Gun Mechanic Relationship Specialty Start Date End Date Elsewhere, Pcp PCP - General Family Medicine 08/12/20 documented as of this encounter
--- OUTSIDE RECORDS SUMMARY | 2022-06-18 16:23 | XMS_ITS | Encounter Summary ---
:1965 Author Organization [facility] Address [address] [place] [address] Care Team Providers Name Role Phone Elsewhere, Pcp Primary Care Provider Unavailable Encounter Details Date Type Department Care Team Description 09/08/2020 Clinical Communication Division of Jeanna Hepatobiliary and Tori Sanchez [facility]creas [facility] [place] [address] [facility] [address] [place] [phone] Social History Tobacco Use Types Packs/Day Years [...] How often do you attend baptist or mosque services? Never 01/15/2021 Do you [...] at Date Recorded Male 08/18/2021 2:55 PM SOFTWOOD FALLER documented as of this encounter Miscellaneous Notes Telephone Encounter - Tori Meeks P.A.-C. - 09/09/2020 10:45 AM SOFTWOOD FALLER Wiliam spoke with one of our appt coordinators this morning. He had a fever of 100 F overnight, now gone. He was here this morning for an ERCP. He denies any other symptoms. I have ordered additional labwork. He was given the [email or web address] line to call to see if he meets criteria for testing. WOOD FALLER Telephone Encounter - Marycruz Thruston - 09/08/2020 4:29 PM CST ToriWiliam would like you to call him tomorrow when you return. He is looking to get some more pain meds but he is okay until tomorrow. WOOD FALLER documented in this encounter Plan of Treatment Upcoming Encounters Date Type Specialty Care Team Description 06/22/2022 Lab Laboratory Medicine Maria Del Rosario Gomez AP RN, C.N.P., M.S. [address] [place] [phone] (Mj godoy) 06/22/2022 Infusion Oncology Maria Del Rosario Gomez APRN, Remy.N .P., M.S. [address] [place] [phone] (Wo rk) 06/29/2022 Lab Laboratory Medicine Maria Del Rosario Gomez AP RN, C.N.P., M.S. [address] [place] [phone] (Wo rk) 06/29/2022 Infusion Oncology Maria Del Rosario Gomez APRN, C.N .P., M.S. [address] [place] [phone] (Wo rk) documented as of this encounter Visit Diagnoses Not on filedocumented in this encounter Additional Health Concerns Infection Onset Date Last Indicated Resolved Time COVID19 Pending 09/09/2020 09/09/2020 09/09/2020 10:46 PM SOFTWOOD FALLER COVID19 Pending 09/12/2020 09/12/2020 09/12/2020 5:04 PM SOFTWOOD FALLER documented as of this encounter Care Teams Crystalizer Relationship Specialty Start Date End Date Elsewhere, Pcp PCP - General Family Medicine 08/12/20 documented as of this encounter
--- OUTSIDE RECORDS SUMMARY | 2022-06-18 16:23 | XMS_ITS | Encounter Summary ---
:1965 Author Organization [facility] Address [address] [place] [address] Care Team Providers Name Role Phone Elsewhere, Pcp Primary Care Provider Unavailable Reason for Visit Auth/Cert Specialty Diagnoses / Procedures Referred By Contact Refer red To Contact Diagnoses Malignant Neoplasm Of Pancreas (HCC) Procedures IR PICC LINE REPOSITION Referral ID Status Reason Start Date Expiration Date Visits Requ ested Visits Authorized [id number] 1 1 Encounter Details Date Type Department Care Team Description 08/18/2020 Hospital Encounter Department of David Meeks P.A.-C. [address] [place] [phone] Malignant Neoplasm Radiology, [facility] Aramis Benjamin M.D. [address] [place] [phone] Of Pancreas (HCC) [facility] in [place], [place] [address] [place] [phone] Social History Tobacco Use Types Packs/Day Years [...] often do you attend jehovah's witness or yazidi services? Never 01/15/2021 Do you [...] or slept in a custodial (including now)? Sex Assigned at Date Recorded Male 08/18/2021 2:55 PM MEDIA SALES REPRESENTATIVE documented as of this encounter Last Filed Vital Signs Vital Sign Reading Time Taken Comments Blood Pressure 114/79 08/18/2020 1:21 PM MEDIA SALES REPRESENTATIVE Pulse 100 08/18/2020 1:21 PM MEDIA SALES REPRESENTATIVE Temperature 36.6 ??C (97.9 ??F) 08/18/2020 1:21 PM MEDIA SALES REPRESENTATIVE Respiratory Rate - - Oxygen Saturation 100% 08/18/2020 1:21 PM MEDIA SALES REPRESENTATIVE Inhaled Oxygen Concentration - - Weight - - Height - - Body Mass Index - - documented in this encounter Medications at Time [...] Take 1 packet by 0 09/12/19 21 ttof-couhrgwq-kiv mouth daily as (Emergen-C) 1,000 mg needed. powder effervescent in packet cefTRIAXone in dextrose, Infuse 50 mL (2 g 2000 mL 0 0 01/202009/09/2020 iso-osm, (ROCEPHIN) 2 total) into [...] Gomez AP RN, C.N.P., M.S. [address] [place] [phone] (Wo rk) 06/22/2022 Infusion Oncology Maria Del Rosario Gomez APRN, C.N .P., M.S. [address] [place] [phone] (Wo rk) 06/29/2022 Lab Laboratory Medicine Maria Del Rosario Gomez AP RN, C.N.P., M.S. [address] [place] [phone] (Wo rk) 06/29/2022 Infusion Oncology Maria Del Rosario Gomez APRN, C.N .P., M.S. [address] [place] [phone] (Wo rk) documented as of this encounter Procedures Procedure Name Priority Date/Time Associated Comments Diagnosis IR FLUOROSCOPY RAD - Routine 08/18/2020 3:37 Malignant Results f or this GUIDANCE (most inpatients PM MEDIA SALES REPRESENTATIVE Neoplasm Of procedure a re in and all Pancreas (HCC) the results outpatients) section. documented in this encounter Results IR Fluoroscopy Guidance (08/18/2020 3:37 PM MEDIA SALES REPRESENTATIVE) Anatomical Region Laterality Modality Body, Vascular Interventional RST LOS, Neuro N/A X-Ray Angiography Interventional RST LOS, Vascular Interventional ARZ LOS, Vascular Interventional FLA LOS Specimen (Source) Anatomical Collection Method Collection Time Re ceived Time Location / / Volume Laterality 08/18/2020 3:45 PM MEDIA SALES REPRESENTATIVE Impressions 08/18/2020 3:52 PM MEDIA SALES REPRESENTATIVE Fluoroscopic evaluation of the left arm PICC shows it to have repositioned itself back into the same p osition as post placement imaging 08/15/20. No manipulations performed. Use of the PICC may resume. NR Narrative 08/18/2020 3:52 PM MEDIA SALES REPRESENTATIVE EXAM: IR FLUOROSCOPY GUIDANCE CLINICAL HISTORY: Patient had placement of a left arm PICC a few days ago. He had a pancreas protocol CT scan today, a nd the PICC flipped up into the left internal jugular vein. Request for possi ble repositioning. TECHNIQUE: He was placed on the fluorosc opy table, and a fluoroscopic spot view obtained of the chest. The left PICC has repositioned itself back to its original location, in the upper atrium. No reason for manipulation. Our VIR nurse tested it for function by flushing and aspirating it, and it was ??noted to be working well. PREPROCEDURE: Patient seen and evaluated . Allergies, pertinent medications, and history reviewed. Discussed risks, benef its, alternatives for procedure, and obtained informed consent. Patient under stands information and questions answered. Immediately prior to starting the procedure, in the presence of the assisting personnel, procedural pause wa s conducted to verify correct patient identity and verification of procedure t o be performed, and as applicable, correct side and site, correct patient p osition, availability of implants, special equipment, or special requiremen ts, and all image and specimen identification data. The roles and respo nsibilities of care team members, residents, and fellows were discussed. Procedure Note Aramis Benjamin M.D. - 08/18/2020Fo rmatting of this note might be different from the original. EXAM: IR FLUOROSCOPY GUIDANCE CLINICAL HISTORY: Patient had placement of a left arm PICC a few days ago. He had a pancreas protocol CT scan today, a nd the PICC flipped up into the left internal jugular vein. Request for possi ble repositioning. TECHNIQUE: He was placed on the fluorosc opy table, and a fluoroscopic spot view obtained of the chest. The left PICC has repositioned itself back to its original location, in the upper atrium. No reason for manipulation. Our VIR nurse tested it for function by flushing and aspirating it, and it was noted to be working well. PREPROCEDURE: Patient seen and evaluated . Allergies, pertinent medications, and history reviewed. Discussed risks, benef its, alternatives for procedure, and obtained informed consent. Patient under stands information and questions answered. Immediately prior to starting the procedure, in the presence of the assisting personnel, procedural pause wa s conducted to verify correct patient identity and verification of procedure t o be performed, and as applicable, correct side and site, correct patient p osition, availability of implants, special equipment, or special requiremen ts, and all image and specimen identification data. The roles and respo nsibilities of care team members, residents, and fellows were discussed. IMPRESSION: Fluoroscopic evaluation of the left arm PICC shows it to have repositioned itself back into the same p osition as post placement imaging 08/15/20. No manipulations performed. Use of the PICC may resume. NR Tori WONG IR PROCEDURES documented in this encounter Visit Diagnoses Diagnosis Malignant Neoplasm Of Pancreas (HCC) documented in this encounter Care Teams Psychiatric Orderly Relationship Specialty Start Date End Date Elsewhere, Pcp PCP - General Family Medicine 08/12/20 documented as of this encounter
--- OUTSIDE RECORDS SUMMARY | 2022-06-18 16:23 | XMS_ITS | Encounter Summary ---
:1965 Author Organization [facility] Address [address] [place] [address] Care Team Providers Name Role Phone Elsewhere, Pcp Primary Care Provider Unavailable Reason for Referral Outpatient (Routine) - Closed Specialty Diagnoses / Procedures Referred By Referred To Contact Contact Medical Oncology / Diagnoses Malignant Neoplasm Of Pancreas (HCC) Pancreatitis Post Endoscopic Retrograde Cholangiopancreatography (HCC) Reji Travis, [facility] Oncology David.Sandra., M.S. [address] [place] [phone] Referral ID Status Reason Start Date Expiration Date Visits Requ ested Visits Authorized [id number] Closed 08/19/2020 08/19/2021 1 1 GRAPH LINEMAN MRI/CAT/PET Scan (Routine) - Closed Specialty Diagnoses / Procedures Referred By Contact Refer red To Contact Radiology Diagnoses Malignant Neoplasm Of Pancreas (HCC) Pancreatitis Post Endoscopic Retrograde Cholangiopancreatography (HCC) Reji Travis, [facility] Procedures MR Abdomen MRCP without and with IV Contrast Michael., M.S. [address] [place] [address] Referral ID Status Reason Start Date Expiration Date Visits Requ ested Visits Authorized [id number] Closed 08/19/2020 08/19/2021 1 1 GRAPH LINEMAN Reason for Visit Appointment Request (Routine) - Closed Specialty Diagnoses / Procedures Referred By Referred To Contact Contact Hepatobiliary and Diagnoses Malignant Neoplasm Of Pancreas Adenocarcinoma (HCC) Pancreas Surgery Referral ID Status Reason Start Date Expiration Date Visits Requ ested Visits Authorized [id number] Closed 08/05/2020 08/05/2021 3 1 Encounter Details Date Type Department Care Team Description 08/19/2020 Comprehensive Visit Division of Jose Travis Neoplasm Of Pancreas (HCC) (Primary Dx); Hepatobiliary and Reji Wilks Pancreatit is Post Endoscopic Retrograde Cholangiopancreatography (HCC) Pancreas Surgery Chanelle, in [facility] [address] [facility] [address] , [place] [phone] Social History Tobacco Use Types Packs/Day Years [...] How often do you attend christianity or sikhism services? Never 01/15/2021 Do you [...] or slept in a intermediate (including now)? Sex Assigned at Date Recorded Male 08/18/2021 2:55 PM TELEGRAPH LINEMAN documented as of this encounter Consult Notes Reji Travis M.D., M.S. - 08/19/2020 1:30 PM CST SUBJECTIVE DIAGNOSIS: Borderline resectable pancreatic adenocarcinoma. HISTORY OF PRESENT ILLNESS Mr. Adam Campbell is a 55-year-old male who presented with jaundice locally [facility], underwentEUS, ERCP stent placement. This was complicated by periprocedural pancreatitis, did require two subsequent admissions to the hospital, one locally and one here in [place]. He has subsequently undergone more durable endobiliary metal stenting. He had some significant peripancreatic necrosis. He was ultimately discharged. He has been able to tolerate a diet. He is on narcotics for his abdominal pain,which is all a result of his pancreatitis. He had a biopsy-proven pancreatic uncinate tumor. He has not met with Medical Oncology yet. He has had no other significant risk factors, prior to this had anexcellent performance status with no prohibitive comorbidities. No previous abdominal surgical history. No family history of pancreatic or biliary malignancies. His restaging scans reveal extensive andprogressive pancreatitis changes with a great amount of peripancreatic necrosis extending into the left pericolic gutter and retroperitoneum. The tumor itself is poorly visible due to the extensive inflammation. 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 He is on anticoagulation for this. Rest of lab studies reviewed. ASSESSMENT / PLAN #1 Borderline resectable pancreatic adenocarcinoma Unfortunately, the patient now has two life-threatening processes, one is his uncinate malignancy, and the second is at least radiographically progressive necrotizing peripancreatic necrosis. Unfortunately, he is not a candidate for resection nor do I believe he can safely receive chemotherapy at thispoint in time. Discussed this with Dr. Black from [facility] who recommends holding off on any treatment and seeing the patient back in approximately 3 weeks with an MRI, MRCP. We will have him meet with our oncology colleagues at that point in time. He is in a very difficult situation and no rolefor surgery. All questions answered. Reji Travis M.D., M.S. CT CT Job ID: [id number] GRAPH LINEMAN documented in this encounter Plan of Treatment Upcoming Encounters Date Type Specialty Care Team Description 06/22/2022 Lab Laboratory Medicine Maria Del Rosario Gomez AP RN, C.N.P., M.S. [address] [place] [phone] (Wo rk) 06/22/2022 Infusion Oncology AdignacioMaria Del Rosario APRN, C.N .P., M.S. [address] [place], [place] [phone] (Wo rk) 06/29/2022 Lab Laboratory Medicine PatriciaMaria Del Rosario AP RN, C.N.P., M.S. [address] [place], [place] [phone] (Mj godoy) 06/29/2022 Infusion Oncology Maria Del Rosario Gomez APRN, C.N .P., M.S. [address] [place], [place] [phone] (Mj rk) Scheduled Referrals Name Type Priority Associated Diagnoses Order S chedule Oncology - Outpatient Routine Malignant Neoplasm Of Pancre as Expected: Medical, GI Referral (HCC) 09/09/2020 consult Pancreatitis Post Endoscopic (Approximate), (clinic) Retrograde Expires: Cholangiopancreatography (HC C) 08/19/2023 documented as of this encounter Results MR Abdomen MRCP without and with IV Contrast (09/09/2020 9:59 AM TELEGRAPH LINEMAN) Anatomical Region Laterality Modality Abdomen, Abdominal RST LOS, Abdominal ARZ LOS, N/A Magnetic Resonance Abdominal FLA LOS Specimen (Source) Anatomical Collection Method Collection Time Re ceived Time Location / / Volume Laterality 09/09/2020 10:12 AM TELEGRAPH LINEMAN Impressions 09/09/2020 10:40 AM TELEGRAPH LINEMAN 1. Slight interval decrease size of the peripancreatic fluid collections as compared to 08/18/2020. The primary pancr eatic malignancy is not well visualized. Non dilated pancreatic duct, however the re is non visualization of the duct at the level of the pancreatic body. Narrative 09/09/2020 10:40 AM TELEGRAPH LINEMAN EXAM: ??MR ABDOMEN MRCP WITHOUT AND WITH [...] an independent workstation as ordered by nilesh e treating provider and reviewed by the [...] Neoplasm Of Pancreas (HCC) - P rimary Pancreatitis Post Endoscopic Retrograde Cholangiopancreatography (HCC) Malignant Neoplasm Of Pancreas (HCC) Pancreatitis Post Endoscopic Retrograde Cholangiopancreatography (HCC) documented in this encounter Care Teams Visual Arts Teacher Relationship Specialty Start Date End Date Elsewhere, Pcp PCP - General Family Medicine 08/12/20 documented as of this encounter
--- OUTSIDE RECORDS SUMMARY | 2022-06-18 16:23 | XMS_ITS | Encounter Summary ---
:1965 Author Organization [facility] Address [address] [place] [address] Care Team Providers Name Role Phone Elsewhere, Pcp Primary Care Provider Unavailable Encounter Details Date Type Department Care Team Description 08/18/2020 Orders Only Department of Infusion Nicolette, Francine L, Josue teremia (Primary Dx) Therapy in [facility] [address] [facility] [address] [place] [phone] Social History Tobacco Use Types Packs/Day Years [...] How often do you attend sabianism or church services? Never 01/15/2021 Do you [...] or slept in a detention (including now)? 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 [address] [place] [phone] (Mj godoy) 06/22/2022 Infusion Oncology Maria Del Rosario Gomez APRN, C.N .P., M.S. [address] [place] [phone] (Mj godoy) 06/29/2022 Lab Laboratory Medicine Maria Del Rosario Gomez AP RN, C.N.P., M.S. [address] [place] [phone] (Mj godoy) 06/29/2022 Infusion Oncology Maria Del Rosario Gomez APRN, C.N .P., M.S. [address] [place] [phone] (Mj godoy) documented as of this encounter Visit Diagnoses Diagnosis Bacteremia - Primary documented in this encounter Care Teams Applier Relationship Specialty Start Date End Date Elsewhere, Pcp PCP - General Family Medicine 08/12/20 documented as of this encounter
--- OUTSIDE RECORDS SUMMARY | 2022-06-18 16:23 | XMS_ITS | Encounter Summary ---
:1965 Author Organization [facility] Address [address] [place] [address] Care Team Providers Name Role Phone Elsewhere, Pcp Primary Care Provider Unavailable Encounter Details Date Type Department Care Team Description 09/09/2020 Lab Department of Gabbi Meeks Neop lasm Of Pancreas (HCC) (Primary Dx); Infusion Therapy in [facility] Pancreat itis Post Endoscopic Retrograde Cholangiopancreatography (HCC); Sixes, P.A.-C. Fever Of Unknown Origin; [place] [address] [facility] Bacteremia [address] [place] [phone] Social History Tobacco Use Types Packs/Day Years [...] often do you attend oriental orthodox or anabaptism services? Never 01/15/2021 Do you [...] Recorded Male 08/18/2021 2:55 PM WET PROCESS HEAD MILLER documented as of this encounter Plan of Treatment Upcoming Encounters Date Type Specialty Care Team Description 06/22/2022 Lab Laboratory Medicine Maria Del Rosario Gomez AP RN, C.N.P., M.S. [address] [place] [phone] (Mj rk) 06/22/2022 Infusion Oncology Maria Del Rosario Gomez APRN, C.N .P., M.S. [address] [place] [phone] (Mj rk) 06/29/2022 Lab Laboratory Medicine Maria Del Rosario Gomez AP RN, C.N.P., M.S. [address] [place] [phone] (Mj rk) 06/29/2022 Infusion Oncology Maria Del Rosario Gomez APRN, C.N .P., M.S. [address] [place] [phone] (Mj rk) documented as of this encounter Procedures Procedure Name Priority Date/Time Associated Diagnosis Comme nts CBC WITHOUT Routine 09/09/2020 Malignant Neoplasm Of Result s for DIFFERENTIAL, B 11:49 AM WET PROCESS HEAD MILLER Pancreas (HCC) this procedure Pancreatitis Post Endoscopic are in the Retrograde results Cholangiopancreatography sec tion. (HCC) Fever Of Unknown Origin LIPASE, S/P Routine 09/09/2020 Malignant Neoplasm Of Result s for 11:49 AM WET PROCESS HEAD MILLER Pancreas (HCC) this procedure Pancreatitis Post Endoscopic are in the Retrograde results Cholangiopancreatography sec tion. (HCC) Fever Of Unknown Origin BILIRUBIN DIRECT, Routine 09/09/2020 Malignant Neoplasm Of R esults for S/P 11:49 AM WET PROCESS HEAD MILLER Pancreas (HCC) this procedure Pancreatitis Post Endoscopic are in the Retrograde results Cholangiopancreatography sec tion. (HCC) Fever Of Unknown Origin COMPREHENSIVE Routine 09/09/2020 Malignant Neoplasm Of Resul ts for METABOLIC PANEL, 11:49 AM WET PROCESS HEAD MILLER Pancreas (HCC) this procedure S/P Pancreatitis Post Endoscopic are in the Retrograde results Cholangiopancreatography sec tion. (HCC) Fever Of Unknown Origin documented in this encounter Results Lipase (09/09/2020 11:49 AM WET PROCESS HEAD MILLER) athologist Signature Lipase, S 15 13 - 60 U/L 09/09/2020 DTL 12:35 PM WET PROCESS HEAD MILLER Specimen Anatomical Collection Method Collection Time Receive d Time (Source) Location / / Volume Laterality Blood (Blood, 09/09/2020 11:49 09/09/2020 Venous) AM WET PROCESS HEAD MILLER 12:05 PM WET PROCESS HEAD MILLER Tori Meeks P.A.-C. LAB BLOOD ADD-ON Performing Organization Address City/State/ZIP Code Phon e Number [facility] - [address] [place], [place] [address] [facility] [place] [place] [address] Laboratories-[facility] [address] (ABNORMAL) Comprehensive Metabolic Panel (09/09/2020 11:49 AM WET PROCESS HEAD MILLER) athologist Signature Potassium, S 4.4 3.6 - 5.2 09/09/2020 DTL mmol/L 12:43 PM WET PROCESS HEAD MILLER Sodium, S 132 (L) 135 - 145 09/09/2020 DTL mmol/L 12:43 PM WET PROCESS HEAD MILLER Chloride, S 97 (L) 98 - 107 09/09/2020 DTL mmol/L 12:43 PM WET PROCESS HEAD MILLER Bicarbonate, S 25 22 - 29 09/09/2020 DTL mmol/L 12:43 PM WET PROCESS HEAD MILLER Anion Gap 10 7 - 15 09/09/2020 DTL 12:43 PM WET PROCESS HEAD MILLER BUN (Blood Urea 13 8 - 24 09/09/2020 DTL Nitrogen), S mg/dL 12:43 PM WET PROCESS HEAD MILLER Creatinine 0.93 0.74 - 09/09/2020 DTL 1.35 mg/dL 12:43 PM WET PROCESS HEAD MILLER eGFR-Non >90 >=60 09/09/2020 DTL Black/ mL/min/BSA 12:43 PM WET PROCESS HEAD MILLER Tunisian Comment: ----ADDITIONAL INFORMATION---- Estimated GFR calculated using the 2009 CKD_EPI creatinine equation. eGFR-Black/ >90 >=60 mL/min/BSA 2019 12:43 PM WET PROCESS HEAD MILLER DTL Comment: ----ADDITIONAL INFORMATION---- Estimated GFR calculated using the 2009 CKD_EPI creatinine equation. Calcium, Total, S 9.0 8.6 - 10.0 mg/dL 09/09/2020 12:4 3 PM WET PROCESS HEAD MILLER DTL Glucose, S 115 70 - 140 mg/dL 09/09/2020 12:43 PM WET PROCESS HEAD MILLER DTL Protein, Total, S 6.9 6.3 - 7.9 g/dL 09/09/2020 12:43 PM WET PROCESS HEAD MILLER DTL Albumin, S 3.4 (L) 3.5 - 5.0 g/dL 09/09/2020 12:43 PM WET PROCESS HEAD MILLER DTL Aspartate Aminotransferase 200 (H) 8 - 48 U/L 09/09/2020 1 2:43 PM WET PROCESS HEAD MILLER DTL (AST), S Alkaline Phosphatase, S 554 (H) 40 - 129 U/L 09/09/2020 12 :43 PM WET PROCESS HEAD MILLER DTL Alanine Aminotransferase 215 (H) 7 - 55 U/L 09/09/2020 12: 43 PM WET PROCESS HEAD MILLER DTL (ALT), S Bilirubin, Total, S 1.0 <=1.2 mg/dL 09/09/2020 12:43 P M WET PROCESS HEAD MILLER DTL Specimen Anatomical Collection Method Collection Time Receive d Time (Source) Location / / Volume Laterality Blood (Blood, 09/09/2020 11:49 09/09/2020 Venous) AM WET PROCESS HEAD MILLER 12:05 PM WET PROCESS HEAD MILLER Tori Meeks P.A.-C. LAB BLOOD ADD-ON Performing Organization Address City/Va Hospital/ZIP Code Phon e Number [facility] - [address] [place], [place] [address] [facility] [place] [address] [facility] [address] (ABNORMAL) Bilirubin, Direct (09/09/2020 11:49 AM WET PROCESS HEAD MILLER) P athologist Signature Bilirubin, 0.6 (H) 0.0 - 0.3 09/09/2020 DTL Direct, S mg/dL 12:43 PM WET PROCESS HEAD MILLER Specimen Anatomical Collection Method Collection Time Receive d Time (Source) Location / / Volume Laterality Blood (Blood, 09/09/2020 11:49 09/09/2020 Venous) AM WET PROCESS HEAD MILLER 12:05 PM WET PROCESS HEAD MILLER Tori Meeks P.A.-C. LAB BLOOD ADD-ON Performing Organization Address City/State/ZIP Code Phon e Number [facility] - [address] [place], [place] [address] [place] [phone] (ABNORMAL) CBC without Differential (09/09/2020 11:49 AM WET PROCESS HEAD MILLER) [facility] gist Method Time Signature Hemoglobin 10.8 (L) 13.2 - 09/09/2020 DTL 16.6 g/dL 12:12 PM WET PROCESS HEAD MILLER Hematocrit 33.1 (L) 38.3 - 09/09/2020 DTL 48.6 % 12:12 PM WET PROCESS HEAD MILLER Erythrocytes 4.01 (L) 4.35 - 09/09/2020 DTL 5.65 12:12 PM WET PROCESS HEAD MILLER x10(12)/L MCV 82.5 78.2 - 09/09/2020 DTL 97.9 fL 12:12 PM WET PROCESS HEAD MILLER RBC Distrib Width 12.8 11.8 - 09/09/2020 DTL 14.5 % 12:12 PM WET PROCESS HEAD MILLER Platelet Count 324 (H) 135 - 317 09/09/2020 DTL x10(9)/L 12:12 PM WET PROCESS HEAD MILLER Leukocytes 11.9 (H) 3.4 - 9.6 09/09/2020 DTL x10(9)/L 12:12 PM WET PROCESS HEAD MILLER Specimen Anatomical Collection Method Collection Time Receive d Time (Source) Location / / Volume Laterality Blood (Blood, 09/09/2020 11:49 09/09/2020 Venous) AM WET PROCESS HEAD MILLER 12:05 PM WET PROCESS HEAD MILLER Tori Meeks P.A.-C. LAB BLOOD ADD-ON Performing Organization Address City/State/ZIP Code Phon e Number [facility] - [address] [place] [id number] documented in this encounter Visit Diagnoses Diagnosis Malignant Neoplasm Of Pancreas (HCC) - P rimary Pancreatitis Post Endoscopic Retrograde Cholangiopancreatography (HCC) Fever Of Unknown Origin Bacteremia documented in this encounter Administered Medications Inactive Administered Medications - up to 3 most recent administrations Medication Order MAR Action Action Date Dose Rate Site sodium chloride 0.9 % injection Given 09/09/2020 11:50 AM WET PROCESS HEAD MILLER 20 mL 10-30 mL 10-30 mL, intra-catheter, As needed, line care, Starting on Mon09/09/20 at 1142, When no infusion to maintain patency. Flush every 7 days to each lumen. documented in this encounter Additional Health Concerns Infection Onset Date Last Indicated Resolved Time COVID19 Pending 09/09/2020 09/09/2020 09/09/2020 10:46 PM WET PROCESS HEAD MILLER documented as of this encounter Care Teams Machine Castings Plasterer Relationship Specialty Start Date End Date Elsewhere, Pcp PCP - General Family Medicine 08/12/20 documented as of this encounter
--- OUTSIDE RECORDS SUMMARY | 2022-06-18 16:23 | XMS_ITS | Encounter Summary ---
:1965 Author Organization [facility] Address [address] [place] [id number] Care Team Providers Name Role Phone Elsewhere, Pcp Primary Care Provider Unavailable Reason for Referral Outpatient (Routine) - Modified Order Specialty Diagnoses / Procedures Referred By Contact Refer red To Contact Radiology Diagnoses Malignant Neoplasm Of Pancreas (HCC) Tori Velasco, Procedures IR Fluoroscopy Guidance IR PICC Line Reposition P.A.-CRiaz [address] [place] [phone] Referral ID Status Reason Start Date Expiration Date Visits V isits Requested Authorized [id number] Modified 08/18/2020 08/18/2021 1 1 Order ORT OPERATIONS MANAGER Reason for Visit Appointment Request (Routine) - Closed Specialty Diagnoses / Procedures Referred By Referred To Contact Contact Hepatobiliary and Diagnoses Malignant Neoplasm Of Pancreas Adenocarcinoma (HCC) Pancreas Surgery Referral ID Status Reason Start Date Expiration Date Visits Requ ested Visits Authorized [id number] Closed 08/05/2020 08/05/2021 3 1 Encounter Details Date Type Department Care Team Description Comprehensive Division of Yudith Caruso APRN, C.N.P., M.S.N. [address] [place] [phone] Malignant Neoplasm Of Pancreas (HCC) (Pr imary Dx); 0 Visit Hepatobiliary and Tori Velasco P.A.-C. [address] [place] [phone] Pancreatitis Post Endoscopic Retrograde Cholangiopancreatography (HCC); Pancreas Surgery Bacteremia; in [place], Portal Vein Th rombosis [place] [address] [place] [address] Social History Tobacco Use Types Packs/Day Years [...] at Date Recorded Male 08/18/2021 2:55 PM AIRPORT OPERATIONS MANAGER documented as of this encounter Consult Notes Tori Velasco P.A.-C. - 08/18/2020 8:30 AM CST SUBJECTIVE REASON FOR CONSULT Mr. Campbell is a 55 y.o. male self-referred who presents for evaluation of pancreatic adenocarcinoma. HISTORY OF PRESENT ILLNESS Mr. Campbell recently presented with jaundiced and imaging revealed mass in the uncinate of the pancreas. He underwent ERCP with uncovered metal stent placement and EUS with biopsy. CA 19 9 [address] normal. CTchest abdomen pelvis revealed no obvious evidence of metastatic disease. Unfortunately he developed post-ERCP pancreatitis and has been hospitalized twice with abdominal pain since, once here at [facility] from 08/12- 08/15. While admitted he was found to be bactermic and had developed a non-occlusive portal vein thrombosis. He was started on therapeutic enoxaparin and IV ceftriaxone daily. He continues to have significant abdominal pain that wraps around to his back. Despite this he has been eating well without nausea or vomiting and stools are fairly normal. His weight is down a total of 30 lb. His ECOG performance status is 1 - symptomatic but completely ambulatory. The following portions of the patient's history were reviewed and updated as appropriate: allergies,current medications, family history, medical history, social history, surgical history and problem list. REVIEW OF SYSTEMS Pertinent items are noted in HPI; all other review of systems was negative. OBJECTIVE PHYSICAL EXAM General appearance: alert, oriented, and no acute distress. Neuro: Alert and oriented x3. Psych: Normal affect. Eyes: Sclerae are anicteric. ENT: Mallampati class 2. Neck: Range of motion is normal with flexion, extension, and rotation. Vessels: No carotid bruit. Lymph: No supraclavicular lymphadenopathy. Heart: Regular rate and rhythm, soft early systolic murmur appreciated only at the right sternal border. Lungs: Breath sounds diminished in the left base, otherwise clear throughout. Abdomen: Soft, not overly tender, somewhat distended. No mass palpated. No surgical scars or hernia. Extremities: Bilateral lower extremities without edema. Diagnostics Imaging: Outside imaging studies were reviewed. As above. Pathology: Pathology not yet reviewed at [facility]; slides requested. ASSESSMENT / PLAN #1 Malignant Neoplasm Of Pancreas (HCC) #2 Pancreatitis Post Endoscopic Retrograde Cholangiopancreatography (HCC) #3 Bacteremia #4 Portal Vein Thrombosis Mr. Campbell is scheduled for staging scans and labs. We discussed our approach here at [facility] to neoadjuvant therapy for pancreatic adenocarcinoma. We also discussed the possibility that his pancreatitis will delay options to start treatment until resolved. I will see him back with Dr. Travis tomorrow. #2 STEVIE Mr. Campbell has a heart murmur he says is from a small hole in his heart but [facility]. I cannot find any other related documentation. His job is active. He denies exertional chest pain or other worrisome symptoms. He is on Lovenox for portal vein thrombosis. He denies a prior history of DVT, bleeding or clotting disorders, or problems with anesthesiain the past. Today, I personally spent 60 minutes, of which greater than 50% of the time was spent in patient education, counseling, and coordination of care as described above. ORT OPERATIONS MANAGER documented in this encounter Miscellaneous Notes Addendum Note - Tori Velasco P.A.-C. - 08/18/2020 8:30 AM AIRPORT OPERATIONS MANAGER Addended by: TORI VELASCO on: 08/18/2020 11:12 AM Modules accepted: Orders ORT OPERATIONS MANAGER documented in this encounter Plan of Treatment Upcoming Encounters Date Type Specialty Care Team Description 06/22/2022 Lab Laboratory Medicine Maria Del Rosario Gomez AP RN, C.N.P., M.S. [address] [place] [phone] ([place]) 06/22/2022 Infusion Oncology [address] RoadMaria Del Rosario pierre APRN, C.N .P., M.S. [address] [place] [phone] ([place]) 06/29/2022 Lab Laboratory Medicine Maria Del Rosario Gomez AP RN, C.N.P., M.S. [address] [place] [phone] ([place]) 06/29/2022 Infusion Oncology Maria Del Rosario Gomez APRN, C.N .P., M.S. [address] [place] [address] [phone] ([place]) documented as of this encounter Results IR Fluoroscopy Guidance (08/18/2020 3:37 PM AIRPORT OPERATIONS MANAGER) Anatomical Region Laterality Modality Body, Vascular Interventional RST LOS, Neuro N/A X-Ray Angiography Interventional RST LOS, Vascular Interventional ARZ LOS, Vascular Interventional FLA LOS Specimen (Source) Anatomical Collection Method Collection Time Re ceived Time Location / / Volume Laterality 08/18/2020 3:45 PM AIRPORT OPERATIONS MANAGER Impressions 08/18/2020 3:52 PM AIRPORT OPERATIONS MANAGER Fluoroscopic evaluation of the left arm PICC shows it to have repositioned itself back into the same p osition as post placement imaging 08/15/20. No manipulations performed. Use of the PICC may resume. NR Narrative 08/18/2020 3:52 PM AIRPORT OPERATIONS MANAGER EXAM: IR FLUOROSCOPY GUIDANCE CLINICAL HISTORY: Patient [...] rimary Pancreatitis Post Endoscopic Retrograde Cholangiopancreatography (HCC) Bacteremia Portal Vein Thrombosis Malignant Neoplasm Of Pancreas (HCC) documented in this encounter Care Teams Crew Team Member Relationship Specialty Start Date End Date Elsewhere, Pcp PCP - General Family Medicine 08/12/20 documented as of this encounter
--- OUTSIDE RECORDS SUMMARY | 2022-06-18 16:23 | XMS_ITS | Encounter Summary ---
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 Pathology, [address] [place] [address] in [facility] [address] [place] [phone] [place] [address] (Work) [place], [place] [phone] (Fax) [phone] Social History Tobacco Use Types Packs/Day Years [...] How often do you attend hoahaoism or hindu services? Never 01/15/2021 Do you [...] slept in a skilled nursing (including now)? Sex Assigned at Date Recorded Male 08/18/2021 2:[address] CLERK documented as of this encounter Medications at [...] Take 1 packet by 0 09/12/19 21 [id number] mouth daily as (Emergen-C) 1,000 mg needed. [...] Gomez AP RN, C.N.P., M.S. [address] [place] [phone] ([place] godoy) 06/22/2022 Infusion Oncology Maria Del Rosario Gomez APRN, C.N .P., M.S. [address] [place] [address] [phone] (Wo rk) 06/29/2022 Lab Laboratory Medicine Maria Del Rosario Gomez AP RN, C.N.P., M.S. [address] [place], [place] [phone] (Wo rk) 06/29/2022 Infusion Oncology Maria Del Rosario Gomez APRN, C.N .P., M.S. [address] [place], [place] [phone] ( rk) documented as of this encounter Procedures Procedure Name Priority Date/Time Associated Diagnosis Comme nts CFDNA KRAS 12, 13, Routine 08/18/2020 Malignant Neoplasm Of Results for 61, 146 BLOOD 9:[address] CLERK Pancreas Adenocarcinoma thi s (HCC) procedure are Pancreatitis Post Endoscopic in the Retrograde results Cholangiopancreatography sec tion. (HCC) CBC WITHOUT Routine 08/18/2020 Malignant Neoplasm Of Result s for DIFFERENTIAL, B 9:[address] CLERK Pancreas Adenocarcinoma t his (HCC) procedure are Pancreatitis Post Endoscopic in the Retrograde results Cholangiopancreatography sec tion. (HCC) HEMOGLOBIN A1C, B Routine 08/18/2020 Malignant Neoplasm Of R esults for 9:[address] CLERK Pancreas Adenocarcinoma this (HCC) procedure are Pancreatitis Post Endoscopic in the Retrograde results Cholangiopancreatography sec tion. (HCC) BILIRUBIN DIRECT, S/P Routine 08/18/2020 Malignant Neoplasm Of Results for 9:[address] CLERK Pancreas Adenocarcinoma this (HCC) procedure are Pancreatitis Post Endoscopic in the Retrograde results Cholangiopancreatography sec tion. (HCC) COMPREHENSIVE Routine 08/18/2020 Malignant Neoplasm Of Resul ts for METABOLIC PANEL, S/P 9:[address] CLERK Pancreas Adenocarcin yvonne this (HCC) procedure are Pancreatitis Post Endoscopic in the Retrograde results Cholangiopancreatography sec tion. (HCC) CARBOHYDRATE AG 19-9 Routine 08/18/2020 Malignant Neoplasm O f Results for (CA 19-9), S 9:[address] CLERK Pancreas Adenocarcinoma this (HCC) procedure are Pancreatitis Post Endoscopic in the Retrograde results Cholangiopancreatography sec tion. (HCC) PROTHROMBIN TIME Routine 08/18/2020 Malignant Neoplasm Of Re sults for (PT), P 9:[address] CLERK Pancreas Adenocarcinoma this (HCC) procedure are Pancreatitis Post Endoscopic in the Retrograde results Cholangiopancreatography sec tion. (HCC) PREALBUMIN (PAB), S Routine 08/18/2020 Malignant Neoplasm Of Results for 9:[address] CLERK Pancreas Adenocarcinoma this (HCC) procedure are Pancreatitis Post Endoscopic in the Retrograde results Cholangiopancreatography sec tion. (HCC) LIPASE, S/P Routine 08/18/2020 Malignant Neoplasm Of Result s for 9:[address] CLERK Pancreas Adenocarcinoma this (HCC) procedure are Pancreatitis Post Endoscopic in the Retrograde results Cholangiopancreatography sec tion. (HCC) CARCINOEMBRYONIC AG Routine 08/18/2020 Malignant Neoplasm Of Results for (CEA), S 9:[address] CLERK Pancreas Adenocarcinoma this (HCC) procedure are Pancreatitis Post Endoscopic in the Retrograde results Cholangiopancreatography sec tion. (HCC) documented in this encounter Results Cell-free DNA KRAS 12, 13, 61,146, Blood (08/18/2020 9:[address] CLERK) [facility] gist Method Time Signature Released By Melania Jacques 08/21/2020 DTLaura Temple M.D. 4:[address] CLERK Result Summary NEGATIVE 08/21/2020 DTL 4:[address] CLERK Result Negative 08/21/2020 DTL 4:[address] OF [address] CLERK Specimen WB, Whole Blood 08/21/2020 DTL 4:[address] CLERK Interpretation The absence of a detectable KRAS mutation in the blo od of 08/21/2020 DTL this patient does not rule out the presence of a KRAS 4:[address] CLERK mutation in the patient's tumor. Additional testing of the tumor sample is recommended if available. Comment: ----ADDITIONAL INFORMATION---- Cell-free DNA was isolated from the plas ma and evaluated for the presence KRAS G12A, G12C, G12D, G12R, G12S, G12V, G13D, Q61K, Q61L, Q61R, Q61H, and A146 mutations using digital droplet PCR analysis. The limit of detection of this assay for the detection of the KRAS mutations (G12A, G12C, G12D, G12R, G12S, G12V, G13 D, Q61K, Q61L, Q61R, Q61H, and A146T) is influenced by the amount of cfDNA in the blood. This is a biological variable that cannot be controlled. This assay was designed to detect the KR G12A, G12C, G12D, G12R, G12S, G12V, G13D, Q61K, Q61L, Q61R, Q61H, and A146 mutations. This test has been evaluated by our ryan aranda as an alternative to assessing paraffin embedded tumor specimens for KR mutations in patients with advanced colorectal cancer. Those studie s revealed that this assay has a high positive predictive value (100% in our s tudy) for the presence of a KRAS mutation in the patient's tumor and high concordance in the specific mutation type observed in the patient's plasma an d tumor. Patients with a negative test result may still harbor a KRAS mutation at codons 12, 13, 61, or 146, and mutation testing of a tissue specimen for KRAS mutations is recommended. This test has not been clinically valida sally for use as a tool to monitor response to therapy or for early detecti on of tumors. TEST CLASSIFICATION This test was developed and its performa nce characteristics determined by [facility] in a manner consistent with CLIA requirements. ??This test has not been cleared or approved by the [place] and Drug Administration. Specimen Anatomical Collection Method Collection Time Receive d Time (Source) Location / / Volume Laterality Blood (Blood, 08/18/2020 9:39 AM 08/18/20 Venous) MAINTENANCE OF WAY CLERK 11:[address] CLERK Narrative [facility] - 08/21/2020 4:[address] OF [address] CLERK Specimen Information: Specimen ID: [id number] Specimen Type: Blood Specimen Collection Start Date: 08/18/20 ??9:39 AM Specimen Received Date: 08/18/2020 11:52 AM Specimen ID: [id number] Specimen Type: Blood Specimen Collection Start Date: 08/18/20 ??9:39 AM Specimen Received Date: 08/18/2020 11:52 AM Tori Meeks P.A.-C. LAB GENETIC TESTING Performing Organization Address City/State/ZIP Code Phon e Number [facility] [address] [place], [place] [address] [place] [address] (ABNORMAL) Bilirubin, Direct (08/18/2020 9:[address] CLERK) athologist Signature Bilirubin, 1.4 (H) 0.0 - 0.3 08/18/2020 DT Direct, S mg/dL 10:[address] CLERK Specimen Anatomical Collection Method Collection Time Receive d Time (Source) Location / / Volume Laterality Blood (Blood, 08/18/2020 9:39 AM 08/18/20 Venous) MAINTENANCE OF WAY CLERK 10:[address] CLERK Tori Meeks P.A.-C. LAB BLOOD ADD-ON Performing Organization Address City/[facility] Phon e Number [place] [phone] [address] Hemoglobin A1c (08/18/2020 9:[address] CLERK) athologist [facility] Hemoglobin A1c, 5.2 4.0 - 5.6 08/18/2020 DTL B % 10:[address] CLERK Specimen Anatomical Collection Method Collection Time Receive d Time (Source) Location / / Volume Laterality Blood (Blood, 08/18/2020 9:39 AM 08/18/20 Venous) MAINTENANCE OF WAY CLERK 10:[address] CLERK Tori Meeks P.A.-C. LAB BLOOD ADD-ON Performing Organization Address City/State/[facility] Phon e Number [address] (ABNORMAL) Comprehensive Metabolic Panel (08/18/2020 9:[address] CLERK) athologist Signature Potassium, S 4.3 3.6 - 5.2 08/18/2020 DTL mmol/L 10:[address] CLERK Sodium, S 135 135 - 145 08/18/2020 DTL mmol/L 10:[address] CLERK Chloride, S 98 98 - 107 08/18/2020 DTL mmol/L 10:[address] CLERK Bicarbonate, S 28 22 - 29 08/18/2020 DTL mmol/L 10:[address] CLERK Anion Gap 9 7 - 15 08/18/2020 DTL 10:[address] CLERK BUN (Blood Urea 16 8 - 24 08/18/2020 DTL Nitrogen), S mg/dL 10:[address] CLERK Creatinine 0.88 0.74 - 08/18/2020 DTL 1.35 mg/dL 10:[address] CLERK eGFR-Non >90 >=60 08/18/2020 DTL Black/ mL/min/BSA 10:[address] CLERK Italian Comment: ----ADDITIONAL INFORMATION---- Estimated GFR calculated using the 2009 CKD_EPI creatinine equation. eGFR-Black/ >90 >=60 mL/min/BSA 2019 10:[address] CLERK DTL Comment: ----ADDITIONAL INFORMATION---- Estimated GFR calculated using the 2009 CKD_EPI creatinine equation. Calcium, Total, S 8.6 8.6 - 10.0 mg/dL 08/18/2020 10:3 [address] CLERK DTL Glucose, S 124 70 - 140 mg/dL 08/18/2020 10:[address] CLERK DTL Protein, Total, S 6.8 6.3 - 7.9 g/dL 08/18/2020 10:[address] CLERK DTL Albumin, S 3.0 (L) 3.5 - 5.0 g/dL 08/18/2020 10:[address] CLERK DTL Aspartate Aminotransferase 44 8 - 48 U/L 08/18/2020 1 0:[address] CLERK DTL (AST), S Alkaline Phosphatase, S 198 (H) 40 - 129 U/L 08/18/2020 10 :[address] CLERK DTL Alanine Aminotransferase 62 (H) 7 - 55 U/L 08/18/2020 10: [address] CLERK DTL (ALT), S Bilirubin, Total, S 1.9 (H) <=1.2 mg/dL 08/18/2020 10:37 A M MAINTENANCE OF WAY CLERK DTL Specimen Anatomical Collection Method Collection Time Receive d Time (Source) Location / / Volume Laterality Blood (Blood, 08/18/2020 9:39 AM 08/18/20 20 Venous) MAINTENANCE OF WAY CLERK 10:[address] CLERK Tori Meeks P.A.-C. LAB BLOOD ADD-ON Performing Organization Address City/State/ZIP Code Phon e Number [facility] - [address] [place], [place] [address] [facility] [place] [address] Laboratories-[facility] [address] (ABNORMAL) CBC without Differential (08/18/2020 9:[address] CLERK) Patholo gist Method Time Signature Hemoglobin 11.6 (L) 13.2 - 08/18/2020 DTL 16.6 g/dL 10:[address] CLERK Hematocrit 36.6 (L) 38.3 - 08/18/2020 DTL 48.6 % 10:[address] CLERK Erythrocytes 4.12 (L) 4.35 - 08/18/2020 DTL 5.65 10:[address] CLERK x10(12)/L MCV 88.8 78.2 - 08/18/2020 DTL 97.9 fL 10:[address] CLERK RBC Distrib Width 14.1 11.8 - 08/18/2020 DTL 14.5 % 10:[address] CLERK Platelet Count 412 (H) 135 - 317 08/18/2020 DTL x10(9)/L 10:[address] CLERK Leukocytes 13.9 (H) 3.4 - 9.6 08/18/2020 DTL x10(9)/L 10:[address] CLERK Specimen Anatomical Collection Method Collection Time Receive d Time (Source) Location / / Volume Laterality Blood (Blood, 08/18/2020 9:39 AM 08/18/20 20 Venous) MAINTENANCE OF WAY CLERK 10:[address] CLERK Tori Meeks P.A.-C. LAB BLOOD ADD-ON Performing Organization Address City/[facility] Code Phon e Number [facility] - [address] Lipase (08/18/2020 9:[address] CLERK) P athologist Signature Lipase, S 15 13 - 60 U/L 08/18/2020 DTL 10:[address] CLERK Specimen Anatomical Collection Method Collection Time Receive d Time (Source) Location / / Volume Laterality Blood (Blood, 08/18/2020 9:38 AM 08/18/20 Venous) MAINTENANCE OF WAY CLERK 10:[address] OF [address] CLERK Tori Meeks P.A.-C. LAB BLOOD ADD-ON Performing Organization Address City/[facility] Code Phon e Number [facility] - [address] [place] [address] [facility] (ABNORMAL) Prothrombin Time (PT) (08/18/2020 9:[address] CLERK) [facility] Method Time Signature Prothrombin 13.1 (H) 9.4 - 12.5 08/18/2020 DTL Time, P sec 10:[address] CLERK INR 1.2 0.9 - 1.1 08/18/2020 DTL 10:[address] CLERK Comment: ----ADDITIONAL INFORMATION---- Standard intensity warfarin therapeutic range: 2.0 to 3.0 ?? High intensity warfarin therapeutic rang e: 2.5 to 3.5 Specimen Anatomical Collection Method Collection Time Receive d Time (Source) Location / / Volume Laterality Blood (Blood, 08/18/2020 9:38 AM 08/18/20 20 Venous) MAINTENANCE OF WAY CLERK 10:[address] CLERK Tori Meeks P.A.-C. LAB BLOOD ADD-ON Performing Organization Address City/[facility]/ZIP [facility] Phon e Number [address] [address] [place] [address] Laboratories-[address] (ABNORMAL) Prealbumin (PAB) (08/18/2020 9:[address] CLERK) P athologist Signature Prealbumin 15 (L) 19 - 38 08/19/2020 [facility] (PAB), S mg/dL 8:[address] CLERK Specimen Anatomical Collection Method Collection Time Receive d Time (Source) Location / / Volume Laterality Blood (Blood, 08/18/2020 9:38 AM 08/19/20 20 6:33 Venous) MAINTENANCE OF WAY CLERK AM MAINTENANCE OF WAY CLERK Tori Meeks P.A.-C. LAB BLOOD ADD-ON Performing Organization Address City/[facility]/ZIP [facility] Phon e Number [facility] [address] [place], [place] [address] SU[facility]ENTER [facility] [place] [address] Laboratory Medicine and Pathology [address] [place] CEA (Carcinoembryonic Antigen) (08/18/2020 9:[address] CLERK) [facility] Method Time Signature Carcinoembryonic Ag 0.7 ng/mL 08/18/2020 [facility] (CEA), S 2:[address] CLERK Comment: ----REFERENCE VALUE---- <=3.0 (Non-smokers) Some smokers may have elevated CEA, usually <5.0. ----ADDITIONAL INFORMATION---- The testing method is an immunoenzymatic assay manufactured by [employer] and performed on the [employer] DxI 800. ? Values obtained with different assay met hods or kits may be different and cannot be used inte rchangeably. ? Test results cannot be interpreted as ab solute evidence for the presence or absence of malignant disease. Specimen Anatomical Collection Method Collection Time Receive d Time (Source) Location / / Volume Laterality Blood (Blood, 08/18/2020 9:38 AM 08/18/20 1:30 Venous) MAINTENANCE OF WAY CLERK PM MAINTENANCE OF WAY CLERK Tori Meeks P.A.-C. LAB BLOOD ADD-ON Performing Organization Address [facility] Phon e Number [address] [place] [address] [facility] [place] [place] [address] Laboratory Medicine and Pathology [address] [place] [address] Dr. [place] Carbohydrate Antigen 19-9 (CA 19-9) (08/18/2020 9:[address] CLERK) athologist Signature Carbohydrate Ag 13 <35 U/mL 08/18/2020 [facility] 19-9, S 2:[address] OF [address] CLERK Comment: ----ADDITIONAL INFORMATION---- The testing method is an immunoenzymatic assay manufactured by [employer] and performed on the [employer] DxI 800. ? Values obtained with different assay met hods or kits may be different and cannot be used inte rchangeably. ? Test results cannot be interpreted as ab solute evidence for the presence or absence of malignant disease. Specimen Anatomical Collection Method Collection Time Receive d Time (Source) Location / / Volume Laterality Blood (Blood, 08/18/2020 9:38 AM 08/18/20 1:30 Venous) MAINTENANCE OF WAY CLERK PM MAINTENANCE OF WAY CLERK Tori Meeks P.A.-C. LAB BLOOD ADD-ON Performing Organization Address [facility] Phon e Number [address] [place] [address] [facility] [place] [address] Laboratory Medicine and Pathology [address] [place] documented in this encounter Visit Diagnoses Diagnosis Malignant Neoplasm Of Pancreas Adenocarc inoma (HCC) Pancreatitis Post Endoscopic Retrograde Cholangiopancreatography (HCC) documented in this encounter Care Teams Machine Group Leader Relationship Specialty Start Date End Date Elsewhere, Pcp PCP - General Family Medicine 08/12/20 documented as of this encounter
--- OUTSIDE RECORDS SUMMARY | 2022-06-18 16:23 | XMS_ITS | Encounter Summary ---
:1965 Author Organization [facility] Address [address] [place] [address] Care Team Providers Name Role Phone Elsewhere, Pcp Primary Care Provider Unavailable Reason for Referral Outpatient (Routine) - Closed Specialty Diagnoses / Procedures Referred By Contact Refer red To Contact Diagnoses Malignant Neoplasm Of Pancreas Adenocarcinoma (HCC) Pancreatitis Post Endoscopic Retrograde Cholangiopancreatography (HCC) [facility] Procedures PET CT Skull to Thigh FDG FL PET/CT TRUNK Tori Sanchez P.A.-C. [address] [place] [address] Referral ID Status Reason Start Date Expiration Date Visits Requ ested Visits Authorized [id number] Closed 08/07/2020 08/07/2021 1 1 OAD SUPERVISOR Reason for Visit Outpatient (Routine) - Closed Specialty Diagnoses / Procedures Referred By Contact Refer red To Contact Diagnoses Malignant Neoplasm Of Pancreas Adenocarcinoma (HCC) Pancreatitis Post Endoscopic Retrograde Cholangiopancreatography (HCC) [facility] Procedures PET CT Skull to Thigh FDG FL PET/CT TRUNK Tori Sanchez P.A.-C. [address] [place] [phone] Referral ID Status Reason Start Date Expiration Date Visits Requ ested Visits Authorized [id number] Closed 08/07/2020 08/07/2021 1 1 Encounter Details Date Type Department Care Team Description 08/19/2020 Hospital Department of Gabbi Meeks lasm Of Pancreas Adenocarcinoma (HCC); Encounter Radiology, Tori Sanchez, Pancreatitis Po st Endoscopic Retrograde Cholangiopancreatography (HCC) [facility], in 200 [facility] [address] 200 [facility] [phone] [place], [place] (Work) [phone] Social History Tobacco Use Types Packs/Day Years [...] How often do you attend religious or orthodox services? 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 [...] Gomez AP RN, C.N.P., M.S. [address] [place] [address] [phone] (Mj godoy) 06/22/2022 Infusion Oncology Maria Del Rosario Gomez APRN, C.N .P., M.S. [address] [place] [address] [phone] (Mj godoy) 06/29/2022 Lab Laboratory Medicine Maria Del Rosario Gomez AP RN, C.N.P., M.S. [address] [place] [address] [phone] (Mj godoy) 06/29/2022 Infusion Oncology Maria Del Rosario Gomez APRN, C.N .P., M.S. [address] [place] [address] [phone] (Mj godoy) documented as of this encounter Procedures Procedure Name Priority Date/Time Associated Diagnosis Comme nts PET CT SKULL RAD - Routine 08/19/2020 Malignant Neoplasm Of Resul ts for TO THIGH (most 10:17 AM PRELOAD SUPERVISOR Pancreas Adenoca rcinoma (HCC) this inpatients and Pancreatitis Post Endoscop ic procedure are all Retrograde in the outpatients) Cholangiopancreatography res ults (HCC) section. documented in this encounter Results PET CT Skull to Thigh FDG (08/19/2020 10:17 AM PRELOAD SUPERVISOR) Anatomical Region Laterality Modality Body, Nuclear Medicine PET RST LOS, N/A Posi manny Emission Tomography (PET), PET ARZ LOS, Nuclear Medicine PET FLA Po sitron Emission Tomography (PET) LOS, Nuclear Medicine Specimen (Source) Anatomical Collection Method Collection Time Re ceived Time Location / / Volume Laterality 08/19/2020 2:03 PM PRELOAD SUPERVISOR Impressions 08/19/2020 2:45 PM PRELOAD SUPERVISOR FDG avid large pancreatic mass with likely central necrosis. Likely additional FDG avid tumor involvement in the body of the pancreas, and inferior to the pancreas. The more diffuse increa sed FDG uptake in the upper abdomen may be inflammatory. No evidence of liver or other more distant metastasis. Diffuse increased FDG uptake seen throughout the bone marrow is likely reactive. Narrative 08/19/2020 2:45 PM PRELOAD SUPERVISOR EXAM: ??PET CT SKULL TO THIGH FDG Serum glucose at time of F-18 FDG inject ion was 97 mg/dL. Patient followed standard dietary/fasting requirements fo r this exam. RADIOPHARMACEUTICAL/MEDS: Route: intravenous fludeoxyglucose F 18 injection LONG TERM (FDG F-18),9.95 millicurie TECHNIQUE: ??F-18 FDG PET/CT scan was pe rformed from the orbits through the thighs with CT fusion imaging for attenu ation correction and anatomic coregistration only, with imaging beginn ing at approximately 60 minutes after radiotracer injection. COMPARISON: ??No previous FDG PET scan. CT scan of the pancreas dated 08/13/2020. INDICATION: ??Staging newly diagnosed pa ncreatic carcinoma. Surgical planning. Evaluation for FDG avidity and possibili ty of metastasis. Initial treatment strategy. FINDINGS: ??FDG PET scan images show the re is moderate increased FDG uptake seen in the mass in the upper abdomen involvi ng the head of the pancreas. There is also decreased FDG uptake centrally with in the mass indicating necrosis (PET/CT image 174). The FDG avid portion of the mass measures 4.8 x 4.8 cm with a FDG SUV maximum measuring 9.3. In addition there is increased FDG uptak e seen along the body of the pancreas (PET/CT image 168) . Additional nodular increased FDG uptake is seen inferior to the pancreas (PET/CT image 193) correlat ing with the fluid collection seen on the CT scan from 08/18/2020. More diffus e increased FDG uptake seen throughout the upper abdomen including extending po sterior to the spleen. Small left pleural effusion with mild FDG uptake (F DG SUV maximum equal 2.1). Remainder of the images show diffuse inc reased FDG uptake throughout the bone marrow that is likely reactive. No other abnormal FDG uptake is seen to indicate more distant tumor metastasis outside of the abdomen. Additional findings on the noncontrast l ow-dose CT: PICC line on the left with the tip the catheter in the right atrium . ??Infiltrate in the right lower lung anteriorly that has not significantly ch anged since the outside CT scan from 07/30/2020. This has no increased FDG up take. Procedure Note Nnamdi Cabrera M.D. - 08/19/2020For matting of this note might be different from the original. EXAM: PET CT SKULL TO THIGH FDG Serum glucose at time of F-18 FDG inject ion was 97 mg/dL. Patient followed standard dietary/fasting requirements fo r this exam. RADIOPHARMACEUTICAL/MEDS: Route: intravenous fludeoxyglucose F 18 injection LONG TERM (FDG F-18),9.95 millicurie TECHNIQUE: F-18 FDG PET/CT scan was perf ormed from the orbits through the thighs with CT fusion imaging for attenu ation correction and anatomic coregistration only, with imaging beginn ing at approximately 60 minutes after radiotracer injection. COMPARISON: No previous FDG PET scan. CT scan of the pancreas dated 08/13/2020. INDICATION: Staging newly diagnosed panc reatic carcinoma. Surgical planning. Evaluation for FDG avidity and possibili ty of metastasis. Initial treatment strategy. FINDINGS: FDG PET scan images show there is moderate increased FDG uptake seen in the mass in the upper abdomen involvi ng the head of the pancreas. There is also decreased FDG uptake centrally with in the mass indicating necrosis (PET/CT image 174). The FDG avid portion of the mass measures 4.8 x 4.8 cm with a FDG SUV maximum measuring 9.3. In addition there is increased FDG uptak e seen along the body of the pancreas (PET/CT image 168) . Additional nodular increased FDG uptake is seen inferior to the pancreas (PET/CT image 193) correlat ing with the fluid collection seen on the CT scan from 08/18/2020. More diffus e increased FDG uptake seen throughout the upper abdomen including extending po sterior to the spleen. Small left pleural effusion with mild FDG uptake (F DG SUV maximum equal 2.1). Remainder of the images show diffuse inc reased FDG uptake throughout the bone marrow that is likely reactive. No other abnormal FDG uptake is seen to indicate more distant tumor metastasis outside of the abdomen. Additional findings on the noncontrast l ow-dose CT: PICC line on the left with the tip the catheter in the right atrium . Infiltrate in the right lower lung anteriorly that has not significantly ch anged since the outside CT scan from 07/30/2020. This has no increased FDG up take. IMPRESSION: FDG avid large pancreatic mass with like ly central necrosis. Likely additional FDG avid tumor involvement in the body of the pancreas, and inferior to the pancreas. The more diffuse increa sed FDG uptake in the upper abdomen may be inflammatory. No evidence of liver or other more distant metastasis. Diffuse increased FDG uptake seen throughout the bone marrow is likely reactive. Tori Meeks P.A.-C. IMG NM PROCEDURES documented in this encounter Visit Diagnoses Diagnosis Malignant Neoplasm Of Pancreas Adenocarc inoma (HCC) Pancreatitis Post Endoscopic Retrograde Cholangiopancreatography (HCC) documented in this encounter Administered Medications Inactive Administered Medications - up to 3 most recent administrations Medication Order MAR Action Action Date Dose Rate Site fludeoxyglucose F 18 Given 08/19/2020 8:44 AM 9.95 millicuries injection LONG TERM (FDG F-18) PRELOAD SUPERVISOR 9.95 millicurie, intravenous, Once, On Mon08/19/20 at 0900, For 1 dose documented in this encounter Care Teams 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
--- OUTSIDE RECORDS SUMMARY | 2022-06-18 16:23 | XMS_ITS | Encounter Summary ---
:1965 Author Organization [facility] Address [address] [place] [address] Care Team Providers Name Role Phone Elsewhere, Pcp Primary Care Provider Unavailable Reason for Visit Reason Comments OPAT Normal Labs Encounter Details Date Type Department Care Team Description 08/21/2020 Clinical Communication Section of Irene Jimenez (Normal Labs) Infectious Diseases M, R.N. in [place], [address] [place] [address] [place] [id number] [place], [place] [phone] (Work) [phone] Social History Tobacco Use Types Packs/Day Years [...] or slept in a [facility] (including now)? 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 PICC can be removed. Lab results from 08/21/20 are viewable in the MCR record--listed as External Labs (received via fax from [facility]) Interpretation and action: The labs were satisfactory and acceptable. No change in plan as per OPAT Practice Guideline. WBC andAlk phos have improved. T OR NUT PICKER documented in this encounter Plan of Treatment Upcoming Encounters Date Type Specialty Care Team Description 06/22/2022 Lab Laboratory Medicine Maria Del Rosario Gomez AP RN, C.N.P., M.S. [address] [place] [address] [phone] (Mj godoy) 06/22/2022 Infusion Oncology Maria Del Rosario Gomez APRN, C.N .P., M.S. [address] [place] [address] [phone] (Mj godoy) 06/29/2022 Lab Laboratory Medicine Maria Del Rosario Gomez AP RN, C.N.P., M.S. [address] [place] [address] [phone] (Mj godoy) 06/29/2022 Infusion Oncology Maria Del Rosario Gomez APRN, C.N .P., M.S. [address] [place] [address] [phone] (Mj godoy) documented as of this encounter Procedures Procedure Name Priority Date/Time Associated Comments Diagnosis CBC WITHOUT Routine 08/21/2020 10:30 Results for this DIFFERENTIAL, B AM FRUIT OR NUT PICKER procedure ar e in the results section. CBC WITH DIFFERENTIAL, B Routine 08/21/2020 10:30 Results for this AM FRUIT OR NUT PICKER procedure are i n the results section. HEMOGLOBIN, B Routine 08/21/2020 10:30 Results fo r this AM FRUIT OR NUT PICKER procedure are i n the results section. ALANINE AMINOTRANSFERASE Routine 08/21/2020 10:30 Results for this (ALT), S/P AM FRUIT OR NUT PICKER procedure are i n the results section. ALKALINE PHOSPHATASE, Routine 08/21/2020 10:30 Re sults for this S/P AM FRUIT OR NUT PICKER procedure are i n the results section. CREATININE WITH EGFR, Routine 08/21/2020 10:30 Re sults for this S/P AM FRUIT OR NUT PICKER procedure are i n the results section. documented in this encounter Results (ABNORMAL) ALT (Alanine Aminotransferase) (08/21/2020 10:30 AM FRUIT OR NUT PICKER) athologist Signature EXT ALT 69 (A) 4 - 50 OTHER (SPECIFY IN CRYSTALIZER) Specimen (Source) Anatomical Location Collection Method / Collectio n Time Received Time / Laterality Volume Blood (Blood, Venous) Unknown Provider LAB BLOOD ADD-ON Performing Organization Address City/State/ZIP Code Phon e Number OTHER (SPECIFY IN CRYSTALIZER) OTHER (SPECIFY IN CRYSTALIZER) N/A (ABNORMAL) Alkaline Phosphatase (08/21/2020 10:30 AM FRUIT OR NUT PICKER) Analysis Performed At [facility] Time Signature EXT Alkaline 193 (A) 40 - 150 OTHER Phosphatase (SPECIFY IN CRYSTALIZER) Specimen (Source) Anatomical Location Collection Method / Collectio n Time Received Time / Laterality Volume Blood (Blood, Venous) Unknown Provider LAB BLOOD ADD-ON Performing Organization Address City/State/ZIP Code Phon e Number OTHER (SPECIFY IN CRYSTALIZER) OTHER (SPECIFY IN CRYSTALIZER) N/A Creatinine with Estimated GFR (08/21/2020 10:30 AM FRUIT OR NUT PICKER) athologist Signature EXT Creatinine 0.8 mg/dL OTHER (SPECIFY IN CRYSTALIZER) Specimen (Source) Anatomical Location Collection Method / Collectio n Time Received Time / Laterality Volume Blood (Blood, Venous) Unknown Provider LAB BLOOD ADD-ON Performing Organization Address City/State/ZIP Code Phon e Number OTHER (SPECIFY IN CRYSTALIZER) OTHER (SPECIFY IN CRYSTALIZER) N/A CBC without Differential (08/21/2020 10:30 AM FRUIT OR NUT PICKER) athologist Signature EXT White Blood 11.9 OTHER (SPECIFY Cell (WBC) IN CRYSTALIZER) Count Specimen (Source) Anatomical Location Collection Method / Collectio n Time Received Time / Laterality Volume Blood (Blood, Venous) Unknown Provider LAB BLOOD ADD-ON Performing Organization Address City/State/ZIP Code Phon e Number OTHER (SPECIFY IN CRYSTALIZER) OTHER (SPECIFY IN CRYSTALIZER) N/A CBC with Differential, Blood (08/21/2020 10:30 AM FRUIT OR NUT PICKER) P athologist Signature EXT Platelet 388 OTHER (SPECIFY Count IN CRYSTALIZER) Specimen (Source) Anatomical Location Collection Method / Collectio n Time Received Time / Laterality Volume Blood (Blood, Venous) Unknown Provider LAB BLOOD ADD-ON Performing Organization Address City/[facility]/ZIP Code Phon e Number OTHER (SPECIFY IN CRYSTALIZER) OTHER (SPECIFY IN CRYSTALIZER) N/A Hemoglobin (08/21/2020 10:30 AM FRUIT OR NUT PICKER) P athologist Signature EXT Hemoglobin 11.1 OTHER (SPECIFY IN CRYSTALIZER) Specimen (Source) Anatomical Location Collection Method / Collectio n Time Received Time / Laterality Volume Blood (Blood, Venous) Unknown Provider LAB BLOOD ADD-ON Performing Organization Address City/State/ZIP [facility] Phon e Number OTHER (SPECIFY IN CRYSTALIZER) OTHER (SPECIFY IN CRYSTALIZER) N/A documented in this encounter Visit Diagnoses Not on filedocumented in this encounter Care Teams Division Sergeant Relationship Specialty Start Date End Date Elsewhere, Pcp PCP - General Family Medicine 08/12/20 documented as of this encounter
--- OUTSIDE RECORDS SUMMARY | 2022-06-18 16:24 | XMS_ITS | Encounter Summary ---
:1965 Author Organization [facility] Address [address] [place] [address] Care Team Providers Name Role Phone Unavailable Primary Care Provider Unavailable Reason for Referral Outpatient (Routine) - Closed Specialty Diagnoses / Procedures Referred By Contact Refer red To Contact Diagnoses Malignant Neoplasm Of Pancreas Adenocarcinoma (HCC) Pancreatitis Post Endoscopic Retrograde Cholangiopancreatography (HCC) [facility] Procedures PET CT Skull to Thigh FDG NC PET/CT TRUNK Tori Sanchez P.A.-C. [address] [place] [address] Referral ID Status Reason Start Date Expiration Date Visits Requ ested Visits Authorized [id number] Closed 08/07/2020 08/07/2021 1 1 RI/CAT/PET Scan (Routine) - Closed Specialty Diagnoses / Procedures Referred By Contact Refer red To Contact Radiology Diagnoses Malignant Neoplasm Of Pancreas Adenocarcinoma (HCC) Pancreatitis Post Endoscopic Retrograde Cholangiopancreatography (HCC) [facility] Procedures CT Pancreas Angiogram Triple Phase and Pelvis with IV Contrast Julissa Meza [address] [place] [address] Referral ID Status Reason Start Date Expiration Date Visits Requ ested Visits Authorized [id number] Closed 08/07/2020 08/07/2021 1 1 T SHOP ASSISTANT Encounter Details Date Type Department Care Team Description 08/07/2020 Clinical Communication Division of [facility] and Tori Sanchez Pancreas Surgery in P[place]. [place], [place] 200 [facility] [address] [place] [phone] Social History Tobacco Use Types Packs/Day Years Used Date Smoking Tobacco: Never Assessed Alcohol Habits Answer Date Recorded How often [...] How often do you attend pentecostalism or advent services? Never 01/15/2021 Do you [...] at Date Recorded Male 08/18/2021 2:55 PM PRINT SHOP ASSISTANT documented as of this encounter Miscellaneous Notes Telephone Encounter - Tori Meeks P.A.-C. - 08/07/2020 10:29 AM PRINT SHOP ASSISTANT 55 yo M recently diagnosed with pancreatic adenocarcinoma. Post-ERCP and biopsy pancreatitis requiring repeat ERCP and restenting. Should see in 2 weeks to let pancreatitis settle down. Need path slides. Orders placed. T SHOP ASSISTANT documented in this encounter Plan of Treatment Upcoming Encounters Date Type Specialty Care Team Description 06/22/2022 Lab Laboratory Medicine Maria Del Rosario Gomez AP RN, C.N.P., M.S. [address] [place] [address] [phone] (Wo rk) 06/22/2022 Infusion Oncology Maria Del Rosario Gomez APRN, C.N .P., M.S. [address] [place] [address] [phone] (Wo rk) 06/29/2022 Lab Laboratory Medicine Maria Del Rosario Gomez AP RN, C.N.P., M.S. [address] [place], [place] [phone] (Wo rk) 06/29/2022 Infusion Oncology Maria Del Rosario Gomez APRN, C.N .P., M.S. [address] [place], [place] [phone] (Wo rk) documented as of this encounter Results PET CT Skull to Thigh FDG (08/19/2020 10:17 AM PRINT SHOP ASSISTANT) Anatomical Region Laterality Modality Body, Nuclear Medicine PET RST LOS, N/A Posi manny Emission Tomography (PET), PET ARZ LOS, Nuclear Medicine PET FLA Po sitron Emission Tomography (PET) LOS, Nuclear Medicine Specimen (Source) Anatomical Collection Method Collection Time Re ceived Time Location / / Volume Laterality 08/19/2020 2:03 PM PRINT SHOP ASSISTANT Impressions 08/19/2020 2:45 PM PRINT SHOP ASSISTANT FDG avid large pancreatic mass with likely [...] is likely reactive. Narrative 08/19/2020 2:45 PM PRINT SHOP ASSISTANT EXAM: ??PET CT SKULL TO THIGH FDG Serum glucose at time of F-18 FDG inject ion was 97 mg/dL. Patient followed standard dietary/fasting requirements fo r this exam. RADIOPHARMACEUTICAL/MEDS: Route: intravenous fludeoxyglucose F 18 injection JAIL (FDG F-18),9.95 millicurie TECHNIQUE: ??F-18 FDG PET/CT [...] RADIOPHARMACEUTICAL/MEDS: Route: intravenous fludeoxyglucose F 18 injection JAIL (FDG F-18),9.95 millicurie TECHNIQUE: F-18 FDG PET/CT [...] marrow is likely reactive. Tori Meeks P.A.-C. [place] PROCEDURES CT Pancreas Angiogram Triple Phase and Pelvis with IV Contrast (08/18/2020 11:05 AM PRINT SHOP ASSISTANT) Anatomical Region Laterality Modality Abdomen, Pelvis, Abdominal RST LOS, N/A Comp uted Tomography, Computed Abdominal ARZ LOS, Vascular Tomography Interventional ARZ LOS, Vascular Interventional FLA LOS, Abdominal FLA LOS Specimen (Source) Anatomical Collection Method Collection Time Re ceived Time Location / / Volume Laterality 08/18/2020 10:52 AM PRINT SHOP ASSISTANT Impressions 08/18/2020 12:25 PM PRINT SHOP ASSISTANT 1. Malpositioned left arm PICC after contrast injection. Tip is currently directed superiorly into the internal ju gular vein. This should be repositioned prior to use. This was discussed with RICKY Marquez [id number] at 11:20am on 09/30/2019. 2. Peripancreatic inflammation [...] lobe pulmonary nodules. Narrative 08/18/2020 12:25 PM PRINT SHOP ASSISTANT EXAM: ??CT PANCREAS ANGIOGRAM TRIPLE PHASE AND [...] use. This was discussed with RICKY Marquez [id number] at 11:20am on 09/30/2019. 2. Peripancreatic inflammation [...] dle lobe pulmonary nodules. Tori Meeks P.A.-C. [facility] [place] PROCEDURES Cell-free DNA KRAS 12, 13, 61,146, Blood (08/18/2020 9:39 AM PRINT SHOP ASSISTANT) [facility] gist Method Time Signature Released By Melania Jacques 08/21/2020 ANNETTE Temple M.D. 4:53 PM PRINT SHOP ASSISTANT Result Summary NEGATIVE 08/21/2020 DTL 4:53 PM PRINT SHOP ASSISTANT Result Negative 08/21/2020 DTL 4:53 PM PRINT SHOP ASSISTANT Specimen WB, Whole Blood 08/21/2020 DTL 4:53 PM PRINT SHOP ASSISTANT Interpretation The absence of a detectable KRAS mutation in the blo od of 08/21/2020 DTL this patient does not rule out the presence of a KRAS 4:53 PM PRINT SHOP ASSISTANT mutation in the patient's tumor. Additional testing [...] and its performa nce characteristics determined by [facility] in a manner consistent with CLIA requirements. ??This test has not been cleared or approved by the [place] and Drug Administration. Specimen Anatomical Collection Method Collection Time Receive d Time (Source) Location / / Volume Laterality Blood (Blood, 08/18/2020 9:39 AM 08/18/20 Venous) PRINT SHOP ASSISTANT 11:52 AM PRINT SHOP ASSISTANT Narrative [facility] [place] - 08/21/2020 4:53 PM PRINT SHOP ASSISTANT Specimen Information: Specimen ID: [id number] Specimen Type: Blood Specimen Collection Start Date: 08/18/20 ??9:39 AM Specimen Received Date: 08/18/2020 11:52 AM Specimen ID: [id number] Specimen Type: Blood Specimen Collection Start Date: 08/18/20 ??9:39 AM Specimen Received Date: 08/18/2020 11:52 AM Tori Meeks P.A.-C. LAB GENETIC TESTING Performing Organization Address [facility] Phon e Number [address] (ABNORMAL) Bilirubin, Direct (08/18/2020 9:39 AM PRINT SHOP ASSISTANT) athologist Signature Bilirubin, 1.4 (H) 0.0 - 0.3 08/18/2020 DTL Direct, S mg/dL 10:37 AM PRINT SHOP ASSISTANT Specimen Anatomical Collection Method Collection Time Receive d Time (Source) Location / / Volume Laterality Blood (Blood, 08/18/2020 9:39 AM 08/18/20 Venous) PRINT SHOP ASSISTANT 10:19 AM PRINT SHOP ASSISTANT Tori Meeks P.A.-C. LAB BLOOD ADD-ON Performing Organization Address City/[facility] Phon e Number [place] [id number] Hemoglobin A1c (08/18/2020 9:39 AM PRINT SHOP ASSISTANT) P athologist Signature Hemoglobin A1c, 5.2 4.0 - 5.6 08/18/2020 DTL B % 10:36 AM PRINT SHOP ASSISTANT Specimen Anatomical Collection Method Collection Time Receive d Time (Source) Location / / Volume Laterality Blood (Blood, 08/18/2020 9:39 AM 08/18/20 20 Venous) PRINT SHOP ASSISTANT 10:05 AM PRINT SHOP ASSISTANT Tori Meeks P.A.-C. LAB BLOOD ADD-ON Performing Organization Address City/State/ZIP Code Phon e Number [facility] - [address] [place], [place] [address] [facility] [place] [address] Laboratories-[facility] [address] (ABNORMAL) Comprehensive Metabolic Panel (08/18/2020 9:39 AM PRINT SHOP ASSISTANT) P athologist Signature Potassium, S 4.3 3.6 - 5.2 08/18/2020 DTL mmol/L 10:37 AM PRINT SHOP ASSISTANT Sodium, S 135 135 - 145 08/18/2020 DTL mmol/L 10:37 AM PRINT SHOP ASSISTANT Chloride, S 98 98 - 107 08/18/2020 DTL mmol/L 10:37 AM PRINT SHOP ASSISTANT Bicarbonate, S 28 22 - 29 08/18/2020 DTL mmol/L 10:37 AM PRINT SHOP ASSISTANT Anion Gap 9 7 - 15 08/18/2020 DTL 10:37 AM PRINT SHOP ASSISTANT BUN (Blood Urea 16 8 - 24 08/18/2020 DTL Nitrogen), S mg/dL 10:37 AM PRINT SHOP ASSISTANT Creatinine 0.88 0.74 - 08/18/2020 DTL 1.35 mg/dL 10:37 AM PRINT SHOP ASSISTANT eGFR-Non >90 >=60 08/18/2020 DTL Black/ mL/min/BSA 10:37 AM PRINT SHOP ASSISTANT Cambodian Comment: ----ADDITIONAL INFORMATION---- Estimated GFR calculated using the 2009 CKD_EPI creatinine equation. eGFR-Black/ >90 >=60 mL/min/BSA 2019 10:37 AM PRINT SHOP ASSISTANT DTL Comment: ----ADDITIONAL INFORMATION---- Estimated GFR calculated using the 2009 CKD_EPI creatinine equation. Calcium, Total, S 8.6 8.6 - 10.0 mg/dL 08/18/2020 10:3 7 AM PRINT SHOP ASSISTANT DTL Glucose, S 124 70 - 140 mg/dL 08/18/2020 10:37 AM PRINT SHOP ASSISTANT DTL Protein, Total, S 6.8 6.3 - 7.9 g/dL 08/18/2020 10:37 AM PRINT SHOP ASSISTANT DTL Albumin, S 3.0 (L) 3.5 - 5.0 g/dL 08/18/2020 10:37 AM PRINT SHOP ASSISTANT DTL Aspartate Aminotransferase 44 8 - 48 U/L 08/18/2020 1 0:37 AM PRINT SHOP ASSISTANT DTL (AST), S Alkaline Phosphatase, S 198 (H) 40 - 129 U/L 08/18/2020 10 :37 AM PRINT SHOP ASSISTANT DTL Alanine Aminotransferase 62 (H) 7 - 55 U/L 08/18/2020 10: 37 AM PRINT SHOP ASSISTANT DTL (ALT), S Bilirubin, Total, S 1.9 (H) <=1.2 mg/dL 08/18/2020 10:37 A M PRINT SHOP ASSISTANT DTL Specimen Anatomical Collection Method Collection Time Receive d Time (Source) Location / / Volume Laterality Blood (Blood, 08/18/2020 9:39 AM 08/18/20 Venous) PRINT SHOP ASSISTANT 10:19 AM PRINT SHOP ASSISTANT Tori Meeks P.A.-C. LAB BLOOD ADD-ON Performing Organization Address City/State/[facility] Code Phon e Number [facility] - [address] [place] [address] [facility] [place] [address] Laboratories-[facility] 200 [facility] (ABNORMAL) CBC without Differential (08/18/2020 9:39 AM PRINT SHOP ASSISTANT) [facility] gist Method Time Signature Hemoglobin 11.6 (L) 13.2 - 08/18/2020 DTL 16.6 g/dL 10:15 AM PRINT SHOP ASSISTANT Hematocrit 36.6 (L) 38.3 - 08/18/2020 DTL 48.6 % 10:15 AM PRINT SHOP ASSISTANT Erythrocytes 4.12 (L) 4.35 - 08/18/2020 DTL 5.65 10:15 AM PRINT SHOP ASSISTANT x10(12)/L MCV 88.8 78.2 - 08/18/2020 DTL 97.9 fL 10:15 AM PRINT SHOP ASSISTANT RBC Distrib Width 14.1 11.8 - 08/18/2020 DTL 14.5 % 10:15 AM PRINT SHOP ASSISTANT Platelet Count 412 (H) 135 - 317 08/18/2020 DTL x10(9)/L 10:15 AM PRINT SHOP ASSISTANT Leukocytes 13.9 (H) 3.4 - 9.6 08/18/2020 DTL x10(9)/L 10:15 AM PRINT SHOP ASSISTANT Specimen Anatomical Collection Method Collection Time Receive d Time (Source) Location / / Volume Laterality Blood (Blood, 08/18/2020 9:39 AM 08/18/20 20 Venous) PRINT SHOP ASSISTANT 10:05 AM PRINT SHOP ASSISTANT Toir Meeks P.A.-C. LAB BLOOD ADD-ON Performing Organization Address City/[facility]/ZIP Code Phon e Number [facility] - [address] [place], [place] [address] [place] [address] [facility] [address] [facility] Lipase (08/18/2020 9:38 AM PRINT SHOP ASSISTANT) P athologist Signature Lipase, S 15 13 - 60 U/L 08/18/2020 DTL 10:32 AM PRINT SHOP ASSISTANT Specimen Anatomical Collection Method Collection Time Receive d Time (Source) Location / / Volume Laterality Blood (Blood, 08/18/2020 9:38 AM 08/18/20 Venous) PRINT SHOP ASSISTANT 10:20 AM PRINT SHOP ASSISTANT Tori Meeks P.A.-C. LAB BLOOD ADD-ON Performing Organization Address City/[facility] Code Phon e Number [facility] - [address] [place], [place] [address] [place] [phone] [place] [address] [facility] (ABNORMAL) Prothrombin Time (PT) (08/18/2020 9:38 AM PRINT SHOP ASSISTANT) Patholo gist Method Time Signature Prothrombin 13.1 (H) 9.4 - 12.5 08/18/2020 DTL Time, P sec 10:41 AM PRINT SHOP ASSISTANT INR 1.2 0.9 - 1.1 08/18/2020 DTL 10:41 AM PRINT SHOP ASSISTANT Comment: ----ADDITIONAL INFORMATION---- Standard intensity warfarin therapeutic range: 2.0 to 3.0 ?? High intensity warfarin therapeutic rang e: 2.5 to 3.5 Specimen Anatomical Collection Method Collection Time Receive d Time (Source) Location / / Volume Laterality Blood (Blood, 08/18/2020 9:38 AM 08/18/20 Venous) PRINT SHOP ASSISTANT 10:05 AM PRINT SHOP ASSISTANT Tori Meeks P.A.-C. LAB BLOOD ADD-ON Performing Organization Address City/[facility]/ZIP Code Phon e Number [facility] - [address] [place], [place] [address] [place] [address] [place] [address] [facility] (ABNORMAL) Prealbumin (PAB) (08/18/2020 9:38 AM PRINT SHOP ASSISTANT) athologist Signature Prealbumin 15 (L) 19 - 38 08/19/2020 [facility] (PAB), S mg/dL 8:40 AM PRINT SHOP ASSISTANT Specimen Anatomical Collection Method Collection Time Receive d Time (Source) Location / / Volume Laterality Blood (Blood, 08/18/2020 9:38 AM 08/19/20 20 6:33 Venous) PRINT SHOP ASSISTANT AM PRINT SHOP ASSISTANT Tori Meeks P.A.-C. LAB BLOOD ADD-ON Performing Organization Address City/[facility]/ZIP Code Phon e Number [facility] [address] [place] [address] SU[facility] [place] [address] Laboratory Medicine and Pathology [address] [place] [address] Dr. CORLEY CEA (Carcinoembryonic Antigen) (08/18/2020 9:38 AM PRINT SHOP ASSISTANT) [facility] gist Method Time Signature Carcinoembryonic Ag 0.7 ng/mL 08/18/2020 [facility] (CEA), S 2:34 PM PRINT SHOP ASSISTANT Comment: ----REFERENCE VALUE---- <=3.0 (Non-smokers) Some smokers may have elevated CEA, usually <5.0. ----ADDITIONAL INFORMATION---- The testing method is an immunoenzymatic assay manufactured by [employer] and performed on the [employer] DxI 800. ? Values obtained with different assay met hods or kits may be different and cannot be used inte rchangeably. ? Test results cannot be interpreted as ab solute evidence for the presence or absence of malignant disease. Specimen Anatomical Collection Method Collection Time Receive d Time (Source) Location / / Volume Laterality Blood (Blood, 08/18/2020 9:38 AM 08/18/20 20 1:30 Venous) PRINT SHOP ASSISTANT PM PRINT SHOP ASSISTANT Tori Meeks P.A.-C. LAB BLOOD ADD-ON Performing Organization Address City/State/ZIP Code Phon e Number [facility] [address] [place], [place] [address] SUPPORT CENTER [facility] [place] [address] Laboratory Medicine and Pathology [address] [place] [address] Dr. CORLEY Carbohydrate Antigen 19-9 (CA 19-9) (08/18/2020 9:38 AM PRINT SHOP ASSISTANT) P athologist Signature Carbohydrate Ag 13 <35 U/mL 08/18/2020 [facility] 19-9, S 2:29 PM PRINT SHOP ASSISTANT Comment: ----ADDITIONAL INFORMATION---- The testing method is an immunoenzymatic assay manufactured by [employer]. and performed on the Tur[employer]He[employer] DxI 800. ? Values obtained with different assay met hods or kits may be different and cannot be used inte rchangeably. ? Test results cannot be interpreted as ab solute evidence for the presence or absence of malignant disease. Specimen Anatomical Collection Method Collection Time Receive d Time (Source) Location / / Volume Laterality Blood (Blood, 08/18/2020 9:38 AM 08/18/20 20 1:30 Venous) PRINT SHOP ASSISTANT PM PRINT SHOP ASSISTANT Tori Meeks P.A.-C. LAB BLOOD ADD-ON Performing Organization Address City/State/ZIP Code Phon e Number [facility] [address] [place] [address] SUPPORT CENTER [facility] [place] [address] Laboratory Medicine and Pathology [address] CORLEY documented in this encounter Visit Diagnoses Diagnosis Malignant Neoplasm Of Pancreas Adenocarc inoma (HCC) - Primary Pancreatitis Post Endoscopic Retrograde Cholangiopancreatography (HCC) Malignant Neoplasm Of Pancreas Adenocarc inoma (HCC) Pancreatitis Post Endoscopic Retrograde Cholangiopancreatography (HCC) Malignant Neoplasm Of Pancreas Adenocarc inoma (HCC) Pancreatitis Post Endoscopic Retrograde Cholangiopancreatography (HCC) Malignant Neoplasm Of Pancreas Adenocarc inoma (HCC) Pancreatitis Post Endoscopic Retrograde Cholangiopancreatography (HCC) documented in this encounter
--- OUTSIDE RECORDS SUMMARY | 2022-06-18 16:24 | XMS_ITS | Encounter Summary ---
:1965 Author Organization [facility] Address [address] [place] [address] Care Team Providers Name Role Phone Unavailable Primary Care Provider Unavailable Encounter Details Date Type Department Care Team Description 12/13/2010 Hospital Encounter HX [facility] SURGEON Matt Gallego M.D. Social History Tobacco Use Types Packs/Day Years [...] How often do you attend gnosticism or zoroastrian services? 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 - 12/13/2010 12:00 AM CDT [id number] CHIEF COMPLAINT/REASON FOR VISIT Followup after upper GI endoscopy. HISTORY OF PRESENT ILLNESS The patient comes in today to discuss the results of his upper GI endoscopy which was done on 12/06/2010. He had some dysphagia. It felt like things were getting stuck in the back of his throat. The findings on his upper GI endoscopy were a 2 centimeter hiatal hernia, otherwise it visually looked normal, but the biopsies of the gastroesophageal junction did show some mild esophagitis. He does take Nexium. Then also the stomach had some mild gastritis, although no Helicobacter pylori was seen. He is not a heavy drinker. He has an occasional drink, but nothing heavy there. Additionally, besides mild gastritis in his stomach, he had a biopsy in the second portion of the duodenum that showed mild intraepithelial lymphocytosis which could be normal, but could also represent a gluten sensitive enteropathy celiac disease, although it could also represent something in the upper limits of normal. So they did recommend serum tests including serum IgA, antitissue transglutaminase antibody plus serum IgA to rule out IgA deficiency in order to rule out a histological mild form of celiac disease. There are some other entities that can produce a situation like this - some overgrowth of bacteria, Helicobacter gastritis (although he did not have that), some type of systemic autoimmune disease, the use on nonsteroidal anti-inflammatories. But I think it would probably be worthwhile to have this worked up. IMPRESSION/REPORT/PLAN I am going to have the patient go back and see Dr. Cui for these blood tests and to followup these findings. RRB/nmd Signed Arie Gallego M.D. General Surgery Electronically Signed By: ARIE GALLEGO MD On: 12/14/2010 04:13 Source: [facility] [email or web address] Document Id: [id number] documented in this encounter Miscellaneous Notes Miscellaneous - Conversion, Historical Provider Ser - 12/13/2010 2:07 PM CDT Adult Licensing Officer Intake/History Adult Licensing Officer Intake/History Entered On: 12/13/2010 14:08 CDT Performed On: 12/13/2010 14:07 CDT by SAWYER SIMONS Intake Chief Complaint: test results Temperature Core: 36.7C(Converted to: 98.1DegF) Peripheral Pulse Rate: 88/min Systolic Blood Pressure: 130mmHg Diastolic Blood Pressure: 80mmHg NIBP Mean: 97mmHg BP Location: Right upper extremity Actual Weight: 85.600kg(Converted to: 188lb 11oz) Dosing Weight Clinic: 85.60kg SAWYER SIMONS 12/13/2010 14:07 CDT Subjective Pain Symptoms: No SAWYER SIMONS 12/13/2010 14:07 CDT Dependent Habits Tobacco Use/Currently Using: No SAWYER SIMONS 12/13/2010 14:07 CDT Caffeine Use Grid Caffeine Use: Current Type: Soft drinks Frequency: Daily Amount: 3 cans Last Use: today SAWYER SIMONS 12/13/2010 14:07 CDT Allergies Allergies (Active) Zantac Estimated Onset Date: Unspecified ; Reactions: Diarrhea ; Created By: TESSA CUI MD; Reaction Status: Active ; Category: Drug ; Substance: Zantac ; Type: Allergy ; Updated By: TESSA CUI MD; Reviewed Date: 11/23/2010 11:56 CDT [facility] Document Id: [id number]!22 documented in this encounter Plan of Treatment Upcoming Encounters Date Type Specialty Care Team Description 06/22/2022 Lab Laboratory Medicine Maria Del Rosario Gomez AP RN, C.N.P., M.S. [address] [place] [phone] (Wo rk) 06/22/2022 Infusion Oncology Maria Del Rosario Gomez APRN, C.N .P., M.S. [address] [place] [phone] (Wo rk) 06/29/2022 Lab Laboratory Medicine Maria Del Rosario Gomez AP RN, C.N.P., M.S. [address] [place] [address] [phone] (Wo rk) 06/29/2022 Infusion Oncology Maria Del Rosario Gomez APRN, C.N .P., M.S. [address] [place] [address] [phone] (Wo rk) documented as of this encounter Visit Diagnoses Not on filedocumented in this encounter
--- OUTSIDE RECORDS SUMMARY | 2022-06-18 16:24 | XMS_ITS | Encounter Summary ---
:1965 Author Organization [facility] Address [address] [place] [address] Care Team Providers Name Role Phone Elsewhere, Pcp Primary Care Provider Unavailable Encounter Details Date Type Department Care Team Description 08/12/2020 Ancillary Procedure Department of Radiology Allison Garcia, in [facility] elke Roca, M.S. [address] [facility] [address] [place] [phone] (Wo rk) Social History Tobacco Use Types [...] How often do you attend denominational or muslim services? Never 01/15/2021 Do you [...] or slept in a [facility]cc (including now)? 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 [address] [place] [address] [phone] (Mj godoy) 06/22/2022 [facility]fusion [facility] [place] APRN, C.N .P., M.S. [address] [place] [address] [phone] (Mj godoy) 06/29/2022 Lab Laboratory Medicine Maria Del Rosario Gomez AP RN, C.N.P., M.S. [address] [place] [address] [phone] (Mj godoy) 06/29/2022 Infusion Oncology Maria Del Rosario Gomez APRN, C.N .P., M.S. [address] [place] [address] [phone] (Mj godoy) documented as of this encounter Procedures Procedure Name Priority Date/Time Associated Comments Diagnosis INTERPRETATION OF RAD - Routine 08/12/2020 10:19 Resul ts for OUTSIDE CT ABDOMEN (most inpatients AM TURN MACHINE OPERATOR this procedure AND OR PELVIS and all are in the outpatients) results section. documented in this encounter Results Interpretation of Outside CT Abdomen and or Pelvis (08/12/2020 10:19 AM TURN MACHINE OPERATOR) Anatomical Region Laterality Modality Abdomen, Pelvis, Abdominal RST LOS, Abdominal ARZ LOS, N/A Computed Tomography Abdominal FLA LOS, Other Specimen (Source) Anatomical Collection Method Collection Time Re ceived Time Location / / Volume Laterality 08/12/2020 10:28 AM TURN MACHINE OPERATOR Impressions 08/12/2020 11:04 AM TURN MACHINE OPERATOR 1. Extensive soft tissue thickening and edema diffusely about the pancreas, worsened and evolving serially since , consistent with acute pancreatitis. No definite definable/drai nable fluid collection or definite pancreatic non-enhancement. 2. Uncinate process mass, status post me aguila common bile duct stent, favoring adenocarcinoma, not discretely resolved given extensive surrounding inflammatory changes. 3. Nonocclusive left and main portal vei n thrombus, new from 07/30/2020. 4. Tiny indeterminate scattered pulmonar y nodules, unchanged from 07/30/2020. Attention on subsequent imaging is recom mended. 3. Small left pleural effusion and left lower lobe atelectasis. Findings discussed with Dr Parsons at 11 05 hour on 08/12/2020. Narrative 08/12/2020 11:04 AM TURN MACHINE OPERATOR EXAM: ??INTERPRETATION OF OUTSIDE CT CHEST, INTERPRETATION OF OUTSIDE CT ABDOMEN AND OR PELVIS COMPARISON: ??CT abdomen and pelvis date d 08/01/2020. CT chest, abdomen, and pelvis dated 07/30/2020. CT abdomen and pelvis dated 07/26/2020. FINDINGS: ??Small left pleural effusion is similar prior with moderate left and mild right bibasilar atelectasis. Tiny, generally peripheral to 3 mm nodules throughout both lungs. Most notable of t hese are in the left upper lobe on series 3, image 22 and in the right midd le lobe on series 3, image 52 and series 3, image 61, unchanged. Heart size abbi l. Mixing artifact in the pulmonary arteries. Left hepatic lobe pneumobilia. Metal jennifer iary stent. Pancreatic head mass not well-visualized. Some debris and fluid i n the distal stent, which remains patent. There is nonocclusive segmental thrombus in the left portal vein and in the main portal vein, extending to the p ortal splenic confluence. This was not present on 07/30/2020. Large, diffuse pe rinephric edema and soft tissue thickening. Much of this has some summer intern al fat density material. There is some partial peripheral enhancement about elizabeth e of this, notably anteriorly on series 2, image 164 and in the left abdomen on series 2, image 138. This extends into the left subdiaphragmatic space. There i s associated, diffuse wall thickening of the near entirety of the stomach. Stomac h and duodenum are decompressed. No free intraperitoneal gas. Small free pelvic f luid without rim enhancement. Embolization coils on the course of the gonadal vessels. Small bowel and colon decompressed. Kidn eys normal. Adrenal glands normal. Procedure Note Rangel Maurice M.D. - 08/12/2020For matting of this note might be different from the original. EXAM: INTERPRETATION OF OUTSIDE CT CHEST , INTERPRETATION OF OUTSIDE CT ABDOMEN AND OR PELVIS COMPARISON: CT abdomen and pelvis dated 08/01/2020. CT chest, abdomen, and pelvis dated 07/30/2020. CT abdomen and pelvis dated 07/26/2020. FINDINGS: Small left pleural effusion is similar prior with moderate left and mild right bibasilar atelectasis. Tiny, generally peripheral to 3 mm nodules throughout both lungs. Most notable of t hese are in the left upper lobe on series 3, image 22 and in the right midd le lobe on series 3, image 52 and series 3, image 61, unchanged. Heart size abbi l. Mixing artifact in the pulmonary arteries. Left hepatic lobe pneumobilia. Metal jenniefr iary stent. Pancreatic head mass not well-visualized. Some debris and fluid i n the distal stent, which remains patent. There is nonocclusive segmental thrombus in the left portal vein and in the main portal vein, extending to the p ortal splenic confluence. This was not present on 07/30/2020. Large, diffuse pe rinephric edema and soft tissue thickening. Much of this has some summer intern al fat density material. There is some partial peripheral enhancement about elizabeth e of this, notably anteriorly on series 2, image 164 and in the left abdomen on series 2, image 138. This extends into the left subdiaphragmatic space. There i s associated, diffuse wall thickening of the near entirety of the stomach. Stomac h and duodenum are decompressed. No free intraperitoneal gas. Small free pelvic f luid without rim enhancement. Embolization coils on the course of the gonadal vessels. Small bowel and colon decompressed. Kidn eys normal. Adrenal glands normal. IMPRESSION: 1. Extensive soft tissue thickening and edema diffusely about the pancreas, worsened and evolving serially since , consistent with acute pancreatitis. No definite definable/drai nable fluid collection or definite pancreatic non-enhancement. 2. Uncinate process mass, status post me aguila common bile duct stent, favoring adenocarcinoma, not discretely resolved given extensive surrounding inflammatory changes. 3. Nonocclusive left and main portal vei n thrombus, new from 07/30/2020. 4. Tiny indeterminate scattered pulmonar y nodules, unchanged from 07/30/2020. Attention on subsequent imaging is recom mended. 3. Small left pleural effusion and left lower lobe atelectasis. Findings discussed with Dr Parsons at 11 05 hour on 08/12/2020. Tobias Garcia M.D., M.S. IMG CT PROCEDURES Interpretation of Outside CT Chest (08/12/2020 10:19 AM TURN MACHINE OPERATOR) Anatomical Region Laterality Modality Chest, Thoracic RST LOS, Thoracic ARZ LOS, Thoracic N/A Computed Tomography FLA LOS, Other, Body Specimen (Source) Anatomical Collection Method Collection Time Re ceived Time Location / / Volume Laterality 08/12/2020 10:28 AM TURN MACHINE OPERATOR Impressions 08/12/2020 11:04 AM TURN MACHINE OPERATOR 1. Extensive soft tissue thickening and edema diffusely about the pancreas, worsened and evolving serially since , consistent with acute pancreatitis. No definite definable/drai nable fluid collection or definite pancreatic non-enhancement. 2. Uncinate process mass, status post me aguila common bile duct stent, favoring adenocarcinoma, not discretely resolved given extensive surrounding inflammatory changes. 3. Nonocclusive left and main portal vei n thrombus, new from 07/30/2020. 4. Tiny indeterminate scattered pulmonar y nodules, unchanged from 07/30/2020. Attention on subsequent imaging is recom mended. 3. Small left pleural effusion and left lower lobe atelectasis. Findings discussed with Dr Parsons at 11 05 hour on 08/12/2020. Narrative 08/12/2020 11:04 AM TURN MACHINE OPERATOR EXAM: ??INTERPRETATION OF OUTSIDE CT CHEST, INTERPRETATION OF OUTSIDE CT ABDOMEN AND OR PELVIS COMPARISON: ??CT abdomen and pelvis date d 08/01/2020. CT chest, abdomen, and pelvis dated 07/30/2020. CT abdomen and pelvis dated 07/26/2020. FINDINGS: ??Small left pleural effusion is similar prior with moderate left and mild right bibasilar atelectasis. Tiny, generally peripheral to 3 mm nodules throughout both lungs. Most notable of t hese are in the left upper lobe on series 3, image 22 and in the right midd le lobe on series 3, image 52 and series 3, image 61, unchanged. Heart size abbi l. Mixing artifact in the pulmonary arteries. Left hepatic lobe pneumobilia. Metal jennifer iary stent. Pancreatic head mass not well-visualized. Some debris and fluid i n the distal stent, which remains patent. There is nonocclusive segmental thrombus in the left portal vein and in the main portal vein, extending to the p ortal splenic confluence. This was not present on 07/30/2020. Large, diffuse pe rinephric edema and soft tissue thickening. Much of this has some summer intern al fat density material. There is some partial peripheral enhancement about elizabeth e of this, notably anteriorly on series 2, image 164 and in the left abdomen on series 2, image 138. This extends into the left subdiaphragmatic space. There i s associated, diffuse wall thickening of the near entirety of the stomach. Stomac h and duodenum are decompressed. No free intraperitoneal gas. Small free pelvic f luid without rim enhancement. Embolization coils on the course of the gonadal vessels. Small bowel and colon decompressed. Kidn eys normal. Adrenal glands normal. Procedure Note Rangel Maurice M.D. - 08/12/2020For matting of this note might be different from the original. EXAM: INTERPRETATION OF OUTSIDE CT CHEST , INTERPRETATION OF OUTSIDE CT ABDOMEN AND OR PELVIS COMPARISON: CT abdomen and pelvis dated 08/01/2020. CT chest, abdomen, and pelvis dated 07/30/2020. CT abdomen and pelvis dated 07/26/2020. FINDINGS: Small left pleural effusion is similar prior with moderate left and mild right bibasilar atelectasis. Tiny, generally peripheral to 3 mm nodules throughout both lungs. Most notable of t hese are in the left upper lobe on series 3, image 22 and in the right midd le lobe on series 3, image 52 and series 3, image 61, unchanged. Heart size abbi l. Mixing artifact in the pulmonary arteries. Left hepatic lobe pneumobilia. Metal jennifer iary stent. Pancreatic head mass not well-visualized. Some debris and fluid i n the distal stent, which remains patent. There is nonocclusive segmental thrombus in the left portal vein and in the main portal vein, extending to the p ortal splenic confluence. This was not present on 07/30/2020. Large, diffuse pe rinephric edema and soft tissue thickening. Much of this has some summer intern al fat density material. There is some partial peripheral enhancement about elizabeth e of this, notably anteriorly on series 2, image 164 and in the left abdomen on series 2, image 138. This extends into the left subdiaphragmatic space. There i s associated, diffuse wall thickening of the near entirety of the stomach. Stomac h and duodenum are decompressed. No free intraperitoneal gas. Small free pelvic f luid without rim enhancement. Embolization coils on the course of the gonadal vessels. Small bowel and colon decompressed. Kidn eys normal. Adrenal glands normal. IMPRESSION: 1. Extensive soft tissue thickening and edema diffusely about the pancreas, worsened and evolving serially since , consistent with acute pancreatitis. No definite definable/drai nable fluid collection or definite pancreatic non-enhancement. 2. Uncinate process mass, status post me aguila common bile duct stent, favoring adenocarcinoma, not discretely resolved given extensive surrounding inflammatory changes. 3. Nonocclusive left and main portal vei n thrombus, new from 07/30/2020. 4. Tiny indeterminate scattered pulmonar y nodules, unchanged from 07/30/2020. Attention on subsequent imaging is recom mended. 3. Small left pleural effusion and left lower lobe atelectasis. Findings discussed with Dr Parsons at 11 05 hour on 08/12/2020. Tobias Garcia M.D., M.S. IMG CT PROCEDURES documented in this encounter Visit Diagnoses Not on filedocumented in this encounter Care Teams Apprentice Plant Attendant Relationship Specialty Start Date End Date Elsewhere, Pcp PCP - General Family Medicine 08/12/20 documented as of this encounter
--- OUTSIDE RECORDS SUMMARY | 2022-06-18 16:24 | XMS_ITS | Encounter Summary ---
:1965 Author Organization [facility] Address [address] [place] [address] Care Team Providers Name Role Phone Elsewhere, Pcp Primary Care Provider Unavailable Encounter Details Date Type Department Care Team Description 08/12/2020 Ancillary Procedure Department of Radiology Allison Garcia, in [facility] elke Roca, M.S. [address] [facility] [address] [place] [phone] (Wo rk) Social History Tobacco Use Types [...] How often do you attend uatsdin or jehovah's witness services? Never 01/15/2021 Do [...] Date Recorded Male 08/18/2021 2:55 PM CHIP PERSON documented as of this encounter Plan of Treatment Upcoming Encounters Date Type Specialty Care Team Description 06/22/2022 Lab Laboratory Medicine Maria Del Rosario Gomez AP RN, C.N.P., M.S. [address] [place] [address] [phone] (Mj godoy) 06/22/2022 Infusion Oncology [place] APRN, C.N .P., M.S. [address] [place] [address] [phone] (Mj godoy) 06/29/2022 Lab Laboratory Medicine Maria Del Rosario Gomez AP RN, C.N.P., M.S. [address] [place] [address] [phone] (Mj godoy) 06/29/2022 Infusion Oncology Maria Del Rosario Gomez APRN, C.N .P., M.S. [address] [place] [address] [phone] (Mj godoy) documented as of this encounter Procedures Procedure Name Priority Date/Time Associated Comments Diagnosis INTERPRETATION OF RAD - Routine 08/12/2020 10:19 Resul ts for OUTSIDE CT CHEST (most inpatients AM CHIP PERSON this pr ocedure and all are in the outpatients) results section. documented in this encounter Results Interpretation of Outside CT Abdomen and or Pelvis (08/12/2020 10:19 AM CHIP PERSON) Anatomical Region Laterality Modality Abdomen, Pelvis, Abdominal RST LOS, Abdominal ARZ LOS, N/A Computed Tomography Abdominal FLA LOS, Other Specimen (Source) Anatomical Collection Method Collection Time Re ceived Time Location / / Volume Laterality 08/12/2020 10:28 AM CHIP PERSON Impressions 08/12/2020 11:04 AM CHIP PERSON 1. Extensive soft tissue thickening and edema [...] hour on 08/12/2020. Narrative 08/12/2020 11:04 AM CHIP PERSON EXAM: ??INTERPRETATION OF OUTSIDE CT CHEST, INTERPRETATION [...] tissue thickening. Much of this has some general intern al fat density material. There is [...] tissue thickening. Much of this has some general intern al fat density material. There is [...] of Outside CT Chest (08/12/2020 10:19 AM CHIP PERSON) Anatomical Region Laterality Modality Chest, Thoracic RST LOS, Thoracic ARZ LOS, Thoracic N/A Computed Tomography FLA LOS, Other, Body Specimen (Source) Anatomical Collection Method Collection Time Re ceived Time Location / / Volume Laterality 08/12/2020 10:28 AM CHIP PERSON Impressions 08/12/2020 11:04 AM CHIP PERSON 1. Extensive soft tissue thickening and edema [...] hour on 08/12/2020. Narrative 08/12/2020 11:04 AM CHIP PERSON EXAM: ??INTERPRETATION OF OUTSIDE CT CHEST, INTERPRETATION [...] tissue thickening. Much of this has some general intern al fat density material. There is [...] tissue thickening. Much of this has some general intern al fat density material. There is [...] on filedocumented in this encounter Care Teams Grease Cup Filler Relationship Specialty Start Date End Date Elsewhere, Pcp PCP - General Family Medicine 08/12/20 documented as of this encounter
--- OUTSIDE RECORDS SUMMARY | 2022-06-18 16:24 | XMS_ITS | Encounter Summary ---
:1965 [address] Organization [facility] Address [address] [place] [address] Care Team Providers Name Role Phone Unavailable Primary Care Provider Unavailable Encounter Details Date Type Department Care Team Description 11/23/2010 Hospital Encounter HX [facility] Tessa Acosta M.D. [address] [id number] [phone] Social History Tobacco Use Types Packs/Day Years [...] How often do you attend yazidism or rastafari services? Never 01/15/2021 Do you [...] or slept in a alf (including now)? Sex Assigned at Date Recorded Male 08/18/2021 2:55 PM DEPARTMENT [employer] documented as of this encounter Progress Notes Tessa Cui M.D. - 11/23/2010 12:00 AM CDT [id number] IMPRESSION / REPORT / PLAN 1. Solid food dysphagia with gastroesophageal reflux disease. I reviewed with him about further evaluation and management. At this point we need to have esophagogastroduodenoscopy. We will schedule endoscopic evaluation with Dr. Gallego. He will continue antireflux measures along with Nexium. He needs to cut back caffeine products. 2. Erectile dysfunction. Discussed with him about further evaluation and management. We need to check testosterone, luteinizing hormone level. It was decided to try with Viagra. He will take 50 mg, one hour prior to sexual activity, as needed. I reviewed with him about side effects. He should call me if there is a side effect or intolerance to medication. Need to consider a urology consultation if there is abnormal testosterone level or not responding to Viagra. 3. Kidney stone. According to the patient he had a kidney stone three weeks ago. He saw a physician at [facility] [place]. He needs to drink plenty of fluids. If he has recurrence of kidney stones we need stone analysis. All of his questions were answered. Return to the clinic in one month for follow up. Today's studies: Testosterone level, TSH, screening PSA, luteinizing hormone, complete blood count, basic metabolic profile, UA with micro. He will be notified when we get test results. Time spent 30 minutes, more than half the time was spent in counseling, coordination of care. CHIEF COMPLAINT/REASON FOR VISIT 1. Dysphagia. 2. Problems with erection. HISTORY OF PRESENT ILLNESS This is a 45 year-old white man who came in today with above complaint. He has been having problems with swallowing for about one year. He has difficulties swallowing especially solid foods intermittently there was no choking, aspiration. He has good appetite. There was no significant weight change. He denies hematemesis, melena, rectal bleeding. There was no stomach pain. I saw him on December 03, 2008 for gastroesophageal reflux disease, at that time he was given Nexium. Patient took Prilosec over the counter. It does not help his symptoms in the past. He tried Zantac. He could not take Zantac because of diarrhea. He has been taking Nexium since then. He does not have significant indigestion or acid reflux. He has not had esophageal gastroduodenoscopy recently. He would like to get a prescription for Viagra because of problems with erection. He has been having this problem for about two months. He denies change in diet medication, denies significant stress, anxiety or depression. He does not have recent injury or back pain. Three weeks ago he passed a kidney stone. He saw a physician from [facility] in [place]. According to him he passed a stone. There was no hematuria. Patient drinks three cans of pop a day. Denies smoking, alcohol or drug abuse. CURRENT MEDICATIONS Post-visit Medication Reconciliation Reviewed and updated as per the EMR. ALLERGIES Reviewed and updated as per the EMR. SYSTEMS REVIEW As per the history of present illness. Other systems are reviewed and are negative. PAST MEDICAL/SURGICAL HISTORY Reviewed and updated as per the EMR. PREVENTIVE SERVICES Reviewed and updated as per the EMR. VITAL SIGNS Reviewed as per the EMR. PHYSICAL EXAM AREA EXAM TEXT GENERAL Patient is sitting with no distress. Able to talk without interruption. SKIN No rash, bruise or nodule. HEAD No facial rash, asymmetry or sinus tenderness. EYES PERRLA, EOMI. No pallor, icterus or conjunctivitis. ENT No nasal congestion, discharge or bleeding. There is no ear infection. Normal tympanic membrane. No mastoid tenderness. Tongue is moist, midline. No oral lesion or dehydration. LYMPH NODES There was no cervical or supraclavicular lymphadenopathy. HEART Regular rhythm. There is no S3, gallop, no obvious murmur. LUNGS Normal respiratory effort. Clear to auscultation. Normal percussion. ABDOMEN Moves with respiration. Bowel sounds present. Soft. No rebound, tenderness, guarding or rigidity. No organomegaly. GENITALIA No hydrocele or hernia. Normal penis and testicles. No urethral discharge. He has had a circumcision. JOINTS No joint swelling or deformity. No decreased range of motion. EXTREMITIES No clubbing, cyanosis, edema, infection, or calf tenderness. GAIT No abnormal gait. MENTAL Alert and oriented x 3. Normal mood and affect. NEURO Grossly nonfocal exam. PP/kmk Signed Tessa Cui M.D. Internal Medicine Electronically Signed By: TESSA CUI MD On: 12/19/2010 03:28 Modified by and Electronically Signed by: TESSA CUI MD On: 12/19/2010 03:28 PM Source: [facility] [id number] Document Id: [id number] documented in this encounter Nursing Notes Conversion, Historical Provider Ser - 11/24/2010 10:17 AM CDT Upper Endoscopy Scheduled DATE: 11-24-10 SCHEDULED FOR: Upper Endoscopy AT [facility] WITH DR. GALLEGO DATE: 12-06-10 TIME: 10:30am / arrive 10:00am PER: Dr. Cui /DR. MCKENZIE ORDERS. ?? Prep instructions have been sent to the patient. ?? Patient advised no aspirin or ibuprofen x 10 days prior to procedure. ?? Insurance referral done _x_Yes __No ?? Copies of referring healthcare provider notes sent to [facility]. Electronically Signed By: NOAH DANIELLE LPN On: 11/24/2010 10:18 Source: [employer] Document Id: [id number] Conversion, Historical Provider Ser - 11/24/2010 9:08 AM CDT Appointment called Dr Gallego's nurse Livia and she will schedule a EGD and contact the patient. Electronically Signed By: NATALIE ALEXANDER On: 11/24/2010 09:16 Source: [employer] Document Id: [id number] documented in this encounter Miscellaneous Notes Miscellaneous - Tessa Cui M.D. - 11/26/2010 9:03 AM CDT Results Notification Document Contains Addenda Addendum by NATALIE ALEXANDER on 26 November 2010 10:27:06 CDT Mailed report From: TESSA CUI MD To: NATALIE ALEXANDER Sent: 11/26/2010 09:03:23 CDT ! Show up: 11/26/2010 09:01:00 CDT Subject: Results Notification Actions: Notify patient of results Due Date/Time: 11/26/2010 09:01:00 CDT Source: [facility] POWERCHART Document Id: [id number] Miscellaneous - Tessa Cui M.D. - 11/23/2010 12:12 PM CDT Ambulatory Patient Summary [address] [id number] Visit Information Name: ADAM KAISER Current Date: 11/23/2010 12:12:16 Primary Care Provider: TESSA CUI MD Your Medications Here is a list of your medications. It is important to take your medications as directed. Use a pillbox or chart to help remind you to take your medications. Please let your doctor or nurse know if you have problems taking your medications. Medication/Strength Dose Route Frequency Indications/Special Instructions/Comments sildenafil (Viagra 50 mg oral tablet) 1 tablet one hour prior to sexual activity Oral once a day as needed for Erectile dysfunction esomeprazole (Nexium 40 mg oral delayed release capsule) 40 mg Oral once a day (in the morning) Your Allergies & Intolerances Substance Reaction Symptoms Category Comments Zantac Diarrhea Drug Your Problem List Problem Status Onset Comments Dysphagia NOS Active 11/23/2010 Erectile dysfunction* Active Your Recommendations We want to make sure you get the tests, immunizations, and guidance you need to stay healthy. Here is a customized list of recommendations, based on information we have in your medical record. Your doctor may have additional recommendations for you, based on your personal medical history and risk factors. You can help us by calling us to make an appointment when you are due for your tests. Additional information regarding recommendations: Test/Treatment Last Done Next Due Additional Information Lipid Panel every 5 years Age 20-75 11/23/2010 Checks blood for good (HDL) and bad (LDL) cholesterol. Know your numbers, they are one indicator of your risk for heart attack and stroke. Vaccine: Tetanus every 10 years 11/23/2010 Immunization to help prevent you from getting the seriousdisease Tetanus (Lockjaw). Your Upcoming Appointments Date Time Location Reason Provider No Appointments found Your Goals/Additional instructions: Source: [facility] POWERCHART Document Id: [id number] Electronically signed by Conversion, [facility] Steel Crane Operator [id number] at 02/12/2017 5:21 PM CDT Miscellaneous - Tessa Cui M.D. - 11/23/2010 12:12 PM CDT Ambulatory Depart Summary [address] [address] Visit Information Name: ADAM KAISER Current Date: 11/23/2010 12:12:16 Primary Care Provider: TESSA CUI MD AWILDA ADAM has been given the following list of medications: Your Medications It is important to take your medications as directed. Use a pill box or chart to help remind you to take your medications. Please let your doctor or nurse know if you have problems taking your medications. Medication/Strength Dose Route Frequency Indications/Special Instructions/Comments sildenafil (Viagra 50 mg oral tablet) 1 tablet one hour prior to sexual activity Oral once a day as needed for Erectile dysfunction esomeprazole (Nexium 40 mg oral delayed release capsule) 40 mg Oral once a day (in the morning) Additional Information: Yes - Current list of reconciled medications is provided and explained to the patient and/or family, guardian/caregiver. Source: [facility] [employer] Document Id: [id number] Electronically signed by Conversion, [facility] Steel Crane Operator [id number] at 02/12/2017 5:21 PM CDT Miscellaneous - Conversion, Historical Provider Ser - 11/23/2010 11:42 AM CDT Adult Inverted Block Operator Intake/History Adult Inverted Block Operator Intake/History Entered On: 11/23/2010 11:46 CDT Performed On: 11/23/2010 11:42 CDT by NATALIE ALEXANDER Intake Chief Complaint: erectile dysfunction and difficulty swollowing food or pills gets stuck in his trhroat Temperature Core: 36.8C(Converted to: 98.2DegF) Peripheral Pulse Rate: 60/min Respiratory Rate: 16/min Systolic Blood Pressure: 108mmHg Diastolic Blood Pressure: 64mmHg NIBP Mean: 79mmHg BP Location: Left upper extremity SpO2: 97% Heart Rhythm: Regular Oxygen Therapy: Room air Height: 179.50cm(Converted to: 5ft 11in, 70.67in) Actual Weight: 82.500kg(Converted to: 181lb 14oz) Weight Source: Standing scale Dosing Weight Clinic: 82.50kg Clinic BSA: 2.03 Body Mass Index: 26kg/m2 NATALIE ALEXANDER - 11/23/2010 11:42 CDT Subjective Pain Symptoms: No NATALIE ALEXANDER - 11/23/2010 11:42 CDT Dependent Habits Tobacco Use/Currently Using: No Alcohol Use: No NATALIE ALEXANDER - 11/23/2010 11:42 CDT Caffeine Use Grid Caffeine Use: Current Type: Soft drinks Frequency: Daily Amount: 3 cans Last Use: today NATALIE ALEXANDER - 11/23/2010 11:42 CDT Allergies Source: [employer] Document Id: [id number] documented in this encounter Plan of Treatment Upcoming Encounters Date Type Specialty Care Team Description 06/22/2022 Lab Laboratory Medicine Maria Del Rosario Gomez AP RN, C.N.P., M.S. [address] [place] [address] [phone] ([place] godoy) 06/22/2022 Infusion Oncology Maria Del Rosario Gomez APRN, C.N .P., M.S. [address] [place] [address] [phone] ([place] godoy) 06/29/2022 Lab Laboratory Medicine Maria Del Rosario Gomez AP RN, C.N.P., M.S. [address] [place] [address] [phone] ([place]j godoy) 06/29/2022 Infusion Oncology Maria Del Rosario Gomez APRN, C.N .P., M.S. [address] [place] [address] [phone] ([place] godoy) documented as of this encounter Visit Diagnoses Not on filedocumented in this encounter
--- OUTSIDE RECORDS SUMMARY | 2022-06-18 16:24 | XMS_ITS | Encounter Summary ---
:1965 Author Organization [facility] Address [address] [place] [id number] Care Team Providers Name Role Phone Elsewhere, Pcp Primary Care Provider Unavailable Reason for Visit Auth/Cert Specialty Diagnoses / Procedures Referred By Contact Refer red To Contact Diagnoses Abdominal Pain Procedures DIR Referral ID Status Reason Start Date Expiration Date Visits Requ ested Visits Authorized [id number] 1 1 Encounter Details Date Type Department Care Team Description 08/12/2020 - Hospital Encounter [facility] Trell Borjas M.D., M.P.H. [address] [place] [phone] Abdominal Pain (Primary Dx); 08/15/2020 [facility] Reji Parsons M.D. [address] [place] [phone] [facility], Third Floor [address] [place] [phone] Social History Tobacco Use Types Packs/Day Years [...] How often do you attend protestant or quaker services? Never 01/15/2021 Do you [...] or slept in a fpc (including now)? Sex Assigned at Date Recorded Male 08/18/2021 2:55 PM COARSE WIRE DRAWER documented as of this encounter Last Filed Vital Signs Vital Sign Reading Time Taken Comments Blood Pressure 113/66 08/15/2020 6:20 PM COARSE WIRE DRAWER Pulse 92 08/15/2020 6:20 PM COARSE WIRE DRAWER Temperature 36.8 ??C (98.2 ??F) 08/15/2020 6:20 PM COARSE WIRE DRAWER Respiratory Rate 16 08/15/2020 9:14 AM COARSE WIRE DRAWER Oxygen Saturation 100% 08/15/2020 6:20 PM COARSE WIRE DRAWER Inhaled Oxygen Concentration - - Weight 81.4 kg (179 lb 7.3 oz) 08/14/2020 12:07 AM COARSE WIRE DRAWER Height 172.7 cm (5' 7.99) 08/12/2020 1:16 PM COARSE WIRE DRAWER Body Mass Index 27.29 08/12/2020 1:16 PM COARSE WIRE DRAWER documented in this encounter Discharge Summaries Az Duran M.D. - 08/15/2020 4:31 PM CST Images from the original note were not included. DISCHARGE SUMMARY BRIEF OVERVIEW Hospital: [facility] Discharge Provider: Reji Parsons M.D. Primary Team: [facility] Medicine 2 ([facility]) Primary Care Providers: Elsewhere, Pcp (General) No address on file Primary Care Provider Phone Number: None Primary Care Provider Fax Number: None Admission Date: 08/12/2020 Discharge Date: 08/15/2020 PRINCIPAL DIAGNOSIS Abdominal Pain SECONDARY DIAGNOSES Principal Problem: Abdominal Pain Active Problems: Bacteremia Resolved Problems: * No resolved hospital problems. * DISCHARGE DISPOSITION Home-Health Care Svc [6] ACTIVE ISSUES REQUIRING FOLLOW UP -Continue Lovenox 1 mg/kg every 12 hours. Considering transitioning to oral anticoagulants once procedural planning is complete. Would likely continue indefinite anticoagulation in the setting of active malignancy, defer duration to outpatient team. -Follow up with primary care physician as scheduled for post hospitalization visit. -Continue with ceftriaxone as below. Tentative 6 weeks course for Strep anginosus bacteremia complicated by likely infected portal vein thrombosis. Follow up with GI INFECTIOUS DISEASES SIGN OFF NOTE: Primary Team 1. Sign off antibiotics: ?? Please consult care management for OPAT dismissal planning ?? Ceftriaxone 2g Q24hrs Stop date known: stop date 09/24/2020 2. Please arrange PICC catheter prior to discharge. 3. Monitoring lab recommendations: Yes, weekly on antibiotics. Complete blood count with differential, Alanine aminotransferase (ALT), Creatinine and Alkaline phosphatase Please fax to division of Infectious Diseases OPAT monitoring program at [phone] after dismissal. Primary service to follow labs while patient is hospitalized. 4. Other monitoring considerations: None Infectious Diseases 1. PICC/Therapy: OK to remove PICC at end of therapy. 2. Follow up indicated: no follow up indicated. Possible side effects from Ceftriaxone: Hypersensitivity, diarrhea, other GI effects, biliary sludgeor gallstones OUTPATIENT FOLLOW UP Scheduled Appointments 08/18/2020 8:30 AM Yudith Caruso APRN, C.N.P., M.S.N. Hepatobiliary and Pancreas Surgery 08/18/2020 9:50 AM LAB BLOOD [facility] Laboratory Medicine 08/18/2020 11:[address] LUPILLO ABD LOS 617 Radiology 08/19/2020 9:00 AM NM ROCH PET LOS 402 Radiology 08/19/2020 1:30 PM Reji Travis M.D., M.S. Hepatobiliary and Pancreas Surgery 08/19/2020 TBD Yudith Caruso APRN, C.N.P., M.S.N. Hepatobiliary and Pancreas Surgery For appointment details refer to your Patient Appointment Guide. TEST RESULTS PENDING AT DISCHARGE Pending Labs Order Current Status Bacteria / Maxwell Culture, Blood #1 Preliminary result Bacteria / Maxwell Culture, Blood #2 Preliminary result DETAILS OF HOSPITAL STAY REASON FOR ADMISSION Abdominal Pain HOSPITAL COURSE Mr. Adam Campbell is a previously healthy 55 y.o. male with a history of recently diagnosed (07/29/2020) pancreatic adenocarcinoma status post biliary stent, post ERCP pancreatitis, who presents with leukocytosis, abdominal pain and fever to the [place] ED ?? On 07/26 the patient was evaluated in the [place] Department for abdominal pain, dark urine, diarrhea and jaundice. He was found to have a bilirubin of 6.[address] abdomen pelvis at that time showed a 2.6 cm ill-defined mass on the pancreatic head suspicious for malignancy as well as bile duct dilatation to 15 mm. ?? On 07/29 the patient underwent ERCP which showed severe biliary stricture of the main bile duct. Sphincterotomy was performed and a single uncovered metal stent was placed in the common bile duct. He then underwent upper EUS and biopsy of the pancreatic head mass which was consistent with adenocarcinoma, staged as T3 N0 Mx by endosonographic criteria. ?? He developed diffuse abdominal pain immediately after procedure despite narcotic medication. He was diagnosed with post ERCP pancreatitis and was treated with IV fluids and pain medication. His pain continued to worsen and repeat CT abdomen pelvis indicated perinephric and ureteral stranding with no stone. He underwent repeat ERCP 08/04 and was found to have stenosis the biliary stent and sludge/stone which was dilated and restented. Bilirubin trended down his pain improved postprocedure. ?? Hepatobiliary and Oncology were consulted. He was to receive 3-4 weeks of neoadjuvant chemotherapy with plans to move forward with combination chemotherapy radiation should he respond well to the initial induction chemotherapy. If he responded well they would consider resection. He is discharged 08/05/2020 with follow-up. ?? On 08/11 he again presented to the [facility] Emergency Department due to fever to 102 at home. [place] [address]. His lipase and LFTs were normal and his bilirubin was improved. CT abdomen in the outlying facility indicated pancreatitis with concerns for early pseudocyst. There was also concern for COVID associated pancreatitis. He was started on Zosyn empirically. ?? He was transferred to [facility] for further evaluation and management. On presentation to the floor he confirms the above history. He states that on 08/11 he developed a fever to 101 and 102 at home. At this time he did feel sweaty and feverish. He has continued to have some abdominal pain since his discharge from the hospital on 08/05 although he has not had any acute worsening of his abdominal pain in it generally has continued to improve. He has been tolerating PO solids and liquids well with intermittent sharp abdominal pain which he relates to gas pain that is worsened with fattyor sugary foods. His abdominal pain is associated with belching and flatus. The pain is made better with ibuprofen. He denies nausea, vomiting, constipation, diarrhea, chest pain, shortness of breath, congestion, pain or swelling in his legs, or any neurologic symptoms. During his hospitalization CT abdomen showed acute non-occlusive portal vein thrombus w/o feature oftumor thrombus and tissusue thickening and edema diffusely about the pancreas consistent with pancreatitis. RUQ US was unrevealing. GI and ID services were consulted to help manage the patient. He was started on lovenox for the portal vein thrombosis. Blood cultures grew Streptococcus anginosus, he was switched to ceftriaxone for possible septic phlebitis of the portal vein with bacteremia. His liverfunction labs trended down and he remained hemodynamically stable for the remaining for remaining of his hospital stay. A PICC line was placed on the day of discharge so he could continue his antibiotic course in the outpatient setting. He is in the process of arranging for outpatient evaluation with Oncology and hepatobiliary surgery at [place]. He is scheduled to see [facility] on 08/18. He was discharged on 08/15/2020 and he was hemodynamically stable. PHYSICAL EXAM General: Alert, interactive, not acutely ill. Skin: No rashes or lesions. Eyes: Pupils equal and round. Mild icteric sclera ?? ENT: Hearing grossly intact. ? Lymph: No cervical, axillary, inguinal,??or subclavicular adenopathy. Lungs: Clear to auscultation. No wheezes or crackles. Heart: Regular rate and rhythm.??2/6 systolic murmur. ??No lower extremity edema. Abdomen: Soft, slight distended, bowel sounds normoactive,??mild diffuse tenderness to palpation in the epigastric area,no palpable masses or organomegaly. Neuro:?Grossly intact. ??Moves all extremities. Mental: Mood and affect congruent. ??Alert and oriented. ??Attention intact. ??No evidence of disorganized thinking. ??Reliable history live in caregiver. ?? MSK: ??No lower extremity edema, tenderness, or palpable cord CONSULTS ORDERED DURING THIS ADMISSION IP CONSULT TO DIETITIAN IP CONSULT TO CARE MANAGEMENT IP CONSULT TO GASTROENTEROLOGY IP CONSULT TO INFECTIOUS DISEASES CONDITION AT DISCHARGE improved Discharge instructions were provided to the patient and caregiver(s). SE WIRE DRAWER documented in this encounter Discharge Instructions Discharge InstructionsVicki Bahena - 08/12/2020 7:11 AM CST You were discharged from the [facility] Medicine 2 ([facility]) Service. Please identify this service name if you call with questions after hospitalization. SE WIRE DRAWER AttachmentsThe following attachments cannot be sent through Care Everywhere. Enoxaparin (By injection) (Kyrgyz)Oxycodone, Rapid Release (By mouth) (Kyrgyz) Senna (By mouth) (Kyrgyz)documented in this encounter Medications at Time of Discharge Medication Sig Dispensed Refills Start Date End Date ascorbic Take 1 packet by 0 09/12/19 21 [id number] mouth daily as (Emergen-C) 1,000 mg needed. powder effervescent in packet sennosides-docusate Take 1 tablet by 14 tablet 0 08/15/2020 08/22/2020 sodium (SENOKOT-S) mouth 2 (two) times 8.6-50 mg per tablet a day for 7 days. acetaminophen (TYLENOL) Take 1 tablet (500 0 /01/202001/01/2021 500 mg tablet mg total) by mouth every 6 (six) hours. cefTRIAXone in dextrose, Infuse 50 mL (2 [...] (ROXICODONE) 5 Take 1 tablet (5 mg 12 tablet 0 08/18/2020 mg immediate release total) by mouth tabletIndications: Acute every 6 (six) hours Pain as needed for pain for up to 3 days Indication: acute pain. documented as of this encounter Progress Notes Kalin Salamanca, MarthaS.W., M.S.W. - 08/15/2020 1:00 PM CST SUBJECTIVE Social work was contacted by the Medicine 2 service this morning, indicating that they would be placing patient's PICC line today and wondering if he could then discharge after this is placed and he receives his dose of ceftriaxone today. I contacted [facility] and spoke with Cecile. I updated her on where things are at, and she indicated that if she receives the orders soon, she could deliver the medication and supplies to the [facility] near the main [facility] entrance and patient could then discharge. She shares with me that their nurse has already completed the home infusion education with patient and his , and that the PICC site cares and labs have been arranged with [facility]. I then contacted patient's , Shaniqua, and spoke with her on the telephone about patients ongoing discharge needs, and updated her on the home infusion therapy discharge plan. She verbalized an understanding of the plan and states that they have been in contact with [facility] and have received education. I update Shaniqua that the primary service was unable to place the PICC line as plannedearlier today, and will continue their attempts to get this placed. Shaniqua states that her is very eager to discharge from the hospital, but wonders if it would be best to get everything completed today and put in place, and plan for a smooth discharge tomorrow. I informed Shaniqua that this is a pos sibility, but would be up the physicians on when they plan to discharge. Disclaimers: Financial disclosure provided informing patient of our ownership and financial relationship of the [facility]/home health & hospice agencies. Reviewed insurance coverage, provided patient with in-network options if applicable. Patient/family have indicated a preference for the facility/agency below. family declined additional resources. OBJECTIVE Anticipated modifications to the home environment: None Patient requires the following additional equipment upon dismissal: None anticipated. Home infusion therapy supplies will be provided by [facility]. ASSESSMENT / PLAN Assessment The patient/family appear [...] technique. Selected Continued Care - Admitted Since 08/12/2020 Dialysis/Infusion Coordination complete Service Provider Selected Services Address Phone Fax Patient Preferred [facility] Infusion and IV Therapy [address], [place] [address] -- Contact: Cecile (on-call this weekend) NURSING: - Adjust the dosing schedule to [...] Care: Selected Continued Care - Admitted Since 08/12/2020 Home Medical Care Coordination complete Service Provider Selected Services Address Phone Fax Patient Preferred [facility] [address] [phone] -- Contact: Intake They will provide [...] SERVICE: - Please provide an order for: assisted care: PICC site care and lab draws in the After Visit Summary. - Communicate with the patient's local primary care provider by telephone for writing of home care orders. This needs to be done to help prevent discharge delays. A copy of the After Visit Summary needs to be sent there as well. SOCIAL WORK: -Will continue to follow for ongoing discharge planning needs. Radha Jay, M.S.W. 08/15/2020 SE WIRE DRAWER Francine Jett M.D. - 08/15/2020 11:12 AM CST Infectious Diseases [facility] Consulting Service Consult Note SUBJECTIVE REASON FOR CONSULTATION We are seeing Mr. Campbell at the request of Reji Parsons M.D. to give further recommendations for evaluation and management of Gram positive bacteremia. ??Adrian??is a 55-year-old male with a history of pancreatic adenocarcinoma, post ERCP pancreatitis, and hyperbilirubinemia hospitalized on [place] [address] ([facility])??for evaluation and management of fever and leukocytosis??developing approximately 2 weeks following onset of post ERCP pancreatitis. EVENTS OVER THE PAST 24 HOURS: Afebrile. Stable vitals. White blood cell count improved from 16.2-14.7. Cultures from 08/13 are no growth to date. OBJECTIVE PHYSICAL EXAMINATION VITAL SIGNS I have reviewed the current vital sign data as applicable. PHYSICAL EXAMINATION Patient was not examined today DIAGNOSTICS I have reviewed diagnostics. US Gallbladder and/or biliary ducts (08/12/20): No biliary obstruction. Limited ductal evaluation due to poor acoustic windows and pneumobilia. ?? DX Chest AP or PA and Lateral 2 Views (08/12/20): No radiographic comparison. A small left pleural effusion is present with associated atelectasis in the left lower lung. Low lung volumes with mild atelectasis in the right lower lung. No areas of consolidation or airspace opacity. Common bile duct stent. ?? Interpretation of outside CT chest/abdomen/pelvis (08/12/20): 1. Extensive soft tissue thickening and edema diffusely about the pancreas, worsened and evolving serially since 07/30/2020, consistent with acute pancreatitis. No definite definable/drainable fluid collection or definite pancreatic non-enhancement. 2. Uncinate process mass, status post metal common bile duct stent, favoring adenocarcinoma, not discretely resolved given extensive surrounding inflammatory changes. 3. Nonocclusive left and main portal vein thrombus, new from 07/30/2020. 4. Tiny indeterminate scattered pulmonary nodules, unchanged from 07/30/2020. Attention on subsequent imaging is recommended. 5. Small left pleural effusion and left lower lobe atelectasis. ?? Culture: Blood culture x2 (08/12/20): STREPTOCOCCUS ANGINOSUS (growth after 23hrs) Blood culture x2 (08/13/20): NGTD ASSESSMENT / PLAN ??Adrian??is a 55-year-old male with a history of pancreatic adenocarcinoma s/p CBD stenting on 07/29 with restenting on 08/04, post ERCP pancreatitis, and hyperbilirubinemia hospitalized on [place] [address] ([facility])??for evaluation and management of fever and leukocytosis??developing approximately 2 weeks following onset of post ERCP pancreatitis, ID consulted for gram positive bacteremia. ?? # Gram positive bacteremia (streptococcus species) # Nonocclusive left/main portal vein thrombosis # Pancreatic head adenocarcinoma (dx 07/29) s/p biliary stenting # Obstructive jaundice s/p biliary stent # Post ERCP pancreatitis ?? Mr. Campbell has grown gram positive bacteremia with streptococcus species in the context of recently diagnosed pancreatic head adenocarcinoma s/p 2 ERCP w/ stent placement and post ERCP pancreatitis, nowwith new nonocclusive left/main portal vein thrombosis. The patient presented without focal symptoms, just experiencing fever and chills. Based on history, physical exam, and radiographic evaluation todate, it is highly likely that this bacteremia is a result of an intraabdominal complication of his pancreatic cancer/ procedural interventions for this. There is a possibility that the bacteria translocated from the pancreas in the context of the significant inflammation surrounding it, but considering the presence of the portal vein thrombosis we cannot discount the possibility of an infected thrombus. Therefore the patient is likely going to require IV antibiotic therapy for 6 weeks with IV ceftriaxone 2g q24hrs for his Streptococcus Anginosus. ?? We very low suspicion that this gram positive bacteremia has caused endocarditis. There is only evidence of low grade bacteremia at this point (one day of positivity), the patient has no prior valvularabnormalities that have been noted, he has no history of cardiac devices, IVDU, immunosuppression, or dental/surgical procedures. Additionally, prelim read identifies this bacteria as streptococcus anginosus which based on [facility], Prevalence of Infective Endocarditis in Bloodstream Infectionsis Dependent on Streptococcal Species, 2020, Circulation has a fairly low risk (4.8%) of causing endocarditis. Therefore we do not recommend further evaluation with TTE or MELI at this time. RECOMMENDATIONS: 1. Continue IV ceftriaxone 2g q24hrs for 6 weeks from 08/13 for streptococcus anginosus 2. Can place PICC today based on >48hrs from negative culture We will sign off at this time. Please page [facility]-ID service pager at [phone] with any questions. INFECTIOUS DISEASES SIGN OFF NOTE: Primary Team 1. Sign off antibiotics: ?? Please consult care management for OPAT dismissal planning ?? Ceftriaxone 2g Q24hrs Stop date known: stop date 09/24/2020 2. Please arrange PICC catheter prior to discharge. 3. Monitoring lab recommendations: Yes, weekly on antibiotics. Complete blood count with differential, Alanine aminotransferase (ALT), Creatinine and Alkaline phosphatase Please fax to division of Infectious Diseases OPAT monitoring program at [phone] after dismissal. Primary service to follow labs while patient is hospitalized. 4. Other monitoring considerations: None Infectious Diseases 1. PICC/Therapy: OK to remove PICC at end of therapy. 2. Follow up indicated: no follow up indicated. Possible side effects from Ceftriaxone: Hypersensitivity, diarrhea, other GI effects, biliary sludgeor gallstones Francine Jett M.D. ?? SE WIRE DRAWER Associated attestation - Jewel Toledo M.D. - 08/15/2020 12:12 PM COARSE WIRE DRAWER I reviewed Dr. Jett 's note. I agree with the documented findings and plan. We will plan for 6 weeks of IV Ceftriaxone as outlined in Dr. Jett's note to treat for Streptococcus anginosus bacteremia complicated by likely infected portal vein thrombosis. Jewel Toledo M.D. Infectious Diseases Mold Worker Pager: [phone] Reji Parsons M.D. - 08/15/2020 10:49 AM CST I saw and examined the patient and agree with documentation from the medicine 2 service. ?? #1??Pancreatic head adenocarcinoma, diagnosed??on July 29 biopsy #2??Common bile duct stricture, metal stent placement and sphincterotomy July 29 with subsequentERCP August 04??to resolve??gallstone occlusion #3??Post ERCP pancreatitis??without infected necrosis and with free flowing fluid collection #4 Non-occlusive acute portal vein thrombosis #5 Streptococcus anginosus bloodstream infection ?? He has been afebrile since admission and is clinically well. ??Source of bloodstream infection either transient CBD obstruction (no evidence for ongoing obstruction) or possible septic phlebitis of theportal vein with bacteremia. Treatment duration dictated by the latter per ID - ceftriaxone for 4-6 w eeks.??No ERCP or drainage of peripancreatic fluid per GI. ??Continue LMW heparin anticoagulation. PICC today and potential dismissal. Outpatient visits scheduled for pancreatic cancer plan. SE WIRE DRAWER Rachel West R.N. - 08/14/2020 2:08 PM CST SUBJECTIVE Referral Data Referral Source: Nurse Referral Reason: Other (comment) Referral Reason Other: Work and short term disability The patient was seen for ongoing discharge needs. A list of infusion options (that patient/family geographically resides or requests) has been provided to and reviewed with patient/family. Disclaimers: Financial disclosure provided informing patient of our ownership and financial relationship of the [facility]/home health & hospice agencies. Reviewed insurance coverage, provided patient with in-network options if applicable. Patient/family plan to consider their preferences. Patient declined additional resources. OBJECTIVE Anticipated modifications to [...] technique. Selected Continued Care - Admitted Since 08/12/2020 Dialysis/Infusion Coordination complete Service Provider Selected Services Address Phone Fax Patient Preferred [facility] Infusion and IV Therapy [address] [address] -- Contact: Intake NURSING: - Adjust the [...] Care: Selected Continued Care - Admitted Since 08/12/2020 [facility] Contact: Intake They will provide the nursing, [...] to follow for ongoing discharge planning needs. Rachel West R.N. 08/14/2020 Reji Goodrich M.D. - 08/14/2020 10:28 AM CST I saw and examined the patient and agree with documentation from the medicine 2 service. ?? #1??Pancreatic head adenocarcinoma, diagnosed??on July 29 biopsy #2??Common bile duct stricture, metal stent placement and sphincterotomy July 29 with subsequentERCP August 04??to resolve??gallstone occlusion #3??Post ERCP pancreatitis without infected necrosis and with free flowing fluid collection #4 Non-occlusive acute portal vein thrombosis #5 Bloodstream infection ?? Blood cultures returned positive while on antibiotics - probable enterococcus. He has been afebrile since admission and is clinically well. For possible septic phlebitis of the portal vein with bacteremia, will consult ID and await speciation/susceptabilities while on Zosyn. No ERCP or drainage of jackelin pancreatic fluid per GI. Continue LMW heparin anticoagulation. Jewel Amaya M.D. - 08/14/2020 8:46 AM CST GI Consult Follow Up Note Ad Copy Writer: Dr. Isaura Marin Results from last 7 days Lab Units 08/14/20 0613 08/13/20 0641 08/12/20 1021 SODIUM mmol/L 134* 132* 135 POTASSIUM mmol/L 3.9 4.3 4.1 CHLORIDE mmol/L 98 98 98 BUN mg/dL 15 17 15 CREATININE mg/dL 0.89 0.89 0.82 CALCIUM mg/dL 7.8* 8.2* 8.0* ALBUMIN g/dL 2.4* 2.4* 2.7* TOTAL PROTEIN g/dL 5.2* 5.2* 5.9* BILIRUBIN TOTAL mg/dL 2.9* 3.5* 4.5* ALK PHOS U/L 163* 180* 202* ALT U/L 58* 67* 81* AST U/L 46 60* 69* GLUCOSE S mg/dL 83 86 81 #. Pancreatic adenocarcinoma of the pancreatic head/uncinate process (dx by EUS 07/29/2020) #. 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 Post-procedural pancreatitis (07/29/2020) #. Fever to 102 F with leukocytosis to 21 and thrombocytosis (368k) #. Abdominal discomfort?? #. New non-occlusive portal vein thrombosis?? #. Gram positive cocci bacteremia resembling Streptococcus ?? This is a 55 yo gentleman who has a known pancreatic head mass consistent with pancreatic adenocarcinoma based on outside pathology, biliary stenosis from this mass status post metal common bile duct stent with good biliary drainage,??and evolving course of post-procedural (07/29/2020) non-necrotizing/edematous pancreatitis without organized fluid collections. He is presently on the Medicine 2 service for fevers with continued abdominal discomfort, but is tolerating a diet and hasn't had stool changes. Blood cultures from 08/12 show GPC resembling Streptococcus in 1 of 3 bottles in one set and 2 of 3 bottles in another set. ?? His hepatobiliary biochemistries continue to improve, as shown above, and given this in conjunction with his decompressed biliary tree on CT, there is not concern for current bile duct obstruction, so he would not benefit from ERCP at this time. Patients with biliary stents can get transient obstruction that causes abdominal discomfort, fevers/rigors, and transient increase in hepatobiliary labs, which may be a potential differential for his fever. This may also lead to bacteremia, so we should consider this as a potential source of her GPC bacteremia. ?? We also have the new finding of acute non-occlusive portal vein thrombus, which did not appear to have timing/CT features of tumor thrombus. Given his fevers, abdominal discomfort, acute PVT, and bacteremia, this prompts consideration for septic thrombophlebitis of his poral vein. We appreciate the input from our Infectious Disease colleagues given the new finding of GPC bacteremia. ?? We also recommended anticoagulation with Lovenox for the acute PVT. We don't know if this is from a hypercoagulable state from his pancreatitis or his pancreatic mass, so we will defer to long-term treatment of the acute, non- occlusive PVT until he has undergone definitive management of his pancreatic malignancy. The goal would be to prevent complete occlusion, extension, and SMV involvement (which can lead to bowel ischemia). ?? At this time, there is no endoscopic intervention required for his pancreatic fluid, which has not yet organized. If he has symptoms of biliary obstruction, gastric outlet obstruction, abdominal pain, or fevers, particularly >4 weeks from the initial pancreatic insult (07/29/2020), would recommend re-imaging the abdomen with IV contrasted CT to look for organized pancreatic pseudocysts that could a) explain findings and b) be amenable to endoscopic drainage. ?? Summary of recommendations: - we appreciate the ID consult for recommendations on the GPC bacteremia - our differential diagnosis at this time includes temporary biliary blockage with subsequent reliefbut complicated by bacteremia vs acute PVT with septic thrombophlebitis. He does not appear to have intraabdominal abscess elsewhere, important within the liver, though this should be considered if hepatobiliary labs worsened or if he continued to have elevated WBC and fevers despite antibiotics, and this should be evaluated with an IV contrasted CT of the abdomen. - he should leave the hospital on therapeutic anticoagulation for his nonocclusive acute portal veinthrombus in order prevent complete occlusion and extension into the superior mesenteric vein. It is not clear if this is from the pancreatitis with a pancreatic malignancy, so in terms of duration, would err on the side of prolonged treatment until the malignancy is managed. - he should keep his follow-up appointments with the pancreatic oncology surgery team next week ?? Thank you for involving us in the care of this patient. Given anticipated discharge with PICC and antibiotics without need for further GI intervention, we will sign off at this time. But we are happy to be reinvolved if his course changes. Please page the GI consult pager at [phone] with any questions or concerns. ?? Jewel Vazquez MD GI & Hepatology fellow, PGY-6?? SE WIRE DRAWER Heldt Az Zhu M.D. - 08/14/2020 6:20 AM CST RST Medicine 2 ([facility]) PROGRESS NOTE SUBJECTIVE Overnight: No acute events overnight Patient feels the pain is controlled well with the current regimen He denies shortness of breath, chest pain, abdominal pain, nausea or vomiting. I have reviewed the current medication list. OBJECTIVE VITAL SIGNS Temperature: [36.3 ??C-37.4 ??C] 36.3 ??C Resp Rate: [14-18] 18 Blood Pressure: (113-128)/(66-82) 123/80 SpO2: [96 %-100 %] 98 % Flow Rate (L/min): [0 L/min] 0 L/min Pulse Rate: [78-96] 79 PHYSICAL EXAM General: Alert, interactive, not acutely ill. Skin: No rashes or lesions. Eyes: Pupils equal and round. ENT: Hearing grossly intact. Lymph: No cervical, axillary, inguinal, or subclavicular adenopathy. Lungs: Clear to auscultation. No wheezes or crackles. Heart: Regular rate and rhythm. 2/6 systolic murmur. No lower extremity edema. Abdomen: Soft, flat, bowel sounds normoactive, mild diffuse tenderness to palpation, nondistended, no palpable masses or organomegaly. Neuro: Grossly intact. Moves all extremities. Mental: Mood and affect congruent. Alert and oriented. Attention intact. No evidence of disorganizedthinking. Reliable history live in caregiver. MSK: No lower extremity edema, tenderness, or palpable cord DIAGNOSTICS I have personally reviewed the laboratory data and imaging since admission, and in/outs for past 72 hours. ASSESSMENT / PLAN Mr. Campbell is a 55-year-old male with a history of pancreatic adenocarcinoma, post ERCP pancreatitis,and hyperbilirubinemia hospitalized on [place] [address] ([facility]) for evaluation and management of fever and leukocytosis developing approximately 2 weeks following onset of post ERCP pancreatitis. Patient has had two positive blood culture with Gram + cocci, while on antibiotics. This favors thathe is likely has an intravascular infection possibly septic PVT. The mechanism could be that that bacteria could have translocated from pancreas to the thrombus in the setting of inflammatory response/pancreatitis. Hepatic function labs are trending sown sp reassuring in that regards. Wi Addendum: - Blood culture growing Streptococcus anginosus, per ID rec will start IV ceftriaxone 2 g Q24H and discontinue zosyn PLAN - ID consult for septic PVT - continue zosyn f/u speciation blood cultures -Continue lovenox 80 mg BID for PVT # Pancreatic adenocarcinoma # Obstructive jaundice s/p biliary stent # Post ERCP pancreatitis # Possible cholangitis # Hyperbilirubinemia # Abdominal pain # Leukocytosis # septic PVT #Hyponatremia - 08/12/2020 blood culture growing G+ cocci - biopsy proven pancreatic adenocarcinoma, T3 N0 Mx by endosonographic criteria - s/p ERCP w/ CBD stenting 07/29, restented 08/04 for stenosis ??-CT scan was also notable for nonocclusive clot in the portal vein at the confluence - ID consult for antibiotic recs - Continue lovenox 80 mg BID Diet: regular diet Tubes/lines: PIV VTE prophylaxis: enoxaparin Code status Full Code :Surrogate Decision Maker: Spouse, Disposition: Uncertain Plan discussed with [facility] Medicine 2 ([facility]) Mold Worker, Reji Choi M.D.. Please page the [facility] Medicine 2 ([facility]) service pager at [phone] with any questions. Reji Goodrich M.D. - 08/13/2020 11:03 AM CST I saw and examined the patient and agree with documentation from the medicine 2 service. ?? #1 Pancreatic head adenocarcinoma, diagnosed on July 29 biopsy #2 Common bile duct stricture, metal stent placement and sphincterotomy July 29 with subsequent ERCP August 04 to resolve gallstone occlusion #3 Post ERCP pancreatitis without infected necrosis and with free flowing fluid collection #4 Non-occlusive acute portal vein thrombosis ?? Remains afebrile and blood cultures negative, though we do not have cultures prior to antibiotics. For possible septic phlebitis of the portal vein, we will treat for 4 weeks with oral antibiotics. No ERCP or drainage of peripancreatic fluid per GI. Continue LMW heparin anticoagulation. SE WIRE DRAWER Jewel Vazquez M.D. - 08/13/2020 8:42 AM CST GASTROENTEROLOGY & HEPATOBILIARY CONSULT FOLLOW-UP Date/Time: 08/13/2020 8:43 AM COARSE WIRE DRAWER Patient Name: Adam Campbell : 1965 LABS Recent Labs 08/13/20 0641 08/12/20 1021 WBC 17.1 H 21.2 H HGB 9.9 L 11.0 L PLT 374 H 368 H INR -- 1.3 NA 132 L 135 K 4.3 4.1 CL 98 98 BUN 17 15 CREATININE 0.89 0.82 CALCIUM 8.2 L 8.0 L PROT 5.2 L 5.9 L ALBUMIN 2.4 L 2.7 L BILITOT 3.5 H 4.5 H AST 60 H 69 H ALT 67 H 81 H ALKPHOS 180 H 202 H ASSESSMENT AND PLAN #. Pancreatic adenocarcinoma of the pancreatic head/uncinate process (dx by EUS 07/29/2020) #. 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 Post-procedural pancreatitis (07/29/2020) #. Fever to 102 F with leukocytosis to 21 and thrombocytosis (368k) #. Abdominal discomfort #. New non-occlusive portal vein thrombosis This is a 55 yo gentleman who has a known pancreatic head mass consistent with pancreatic adenocarcinoma based on outside pathology, biliary stenosis from this mass status post metal common bile duct stent with good biliary drainage, and evolving course of non-necrotizing/edematous pancreatitis without organized fluid collections. He is presently on the Medicine 2 service for fevers with continued abdominal discomfort, but is tolerating a diet and hasn't had stool changes. His hepatobiliary biochemistries have improved from yesterday, and given this in conjunction with his decompressed biliary tree on CT yesterday, there is not concern for current bile duct obstruction, so he would not benefit from ERCP at this time. Patients with biliary stents can get transient obstruction that causes abdominal discomfort, fevers/rigors, and transient increase in hepatobiliary labs, which may be a potential differential for his fever. We also have the new finding of acute non-occlusive portal vein thrombus, which did not appear to have timing/CT features of tumor thrombus. Given the fevers without alternate etiology at this time, the Zosyn he is on will cover for septic phlebitis of the PVT. If no alternate cause is identified, he can dismiss on 4-6 weeks of ciprofloxacin/metronidazole for empiric treatment of septic PVT. If bloodcultures return positive, antibiotic course can be tailored based on susceptibilities, but duration would be 4-6 weeks still. We also recommended anticoagulation with Lovenox for the acute PVT. We don't know if this is from a hypercoagulable state from his pancreatitis or his pancreatic mass, so we will defer to long-term treatment of the acute, non- occlusive PVT until he has undergone definitive management of his pancreatic malignancy. The goal would be to prevent complete occlusion, extension, and SMV involvement (which can lead to bowel ischemia). At this time, there is no endoscopic intervention required for his pancreatic fluid, which has not yet organized. If he has symptoms of biliary obstruction, gastric outlet obstruction, abdominal pain, or fevers, particularly >4 weeks from the initial pancreatic insult (07/29/2020), would recommend re-imaging the abdomen with IV contrasted CT to look for organized pancreatic pseudocysts that could a) explain findings and b) be amenable to endoscopic drainage. Summary of recommendations: - follow up [facility] and outside blood cultures - antibiotic treatment for presumed septic acute PVT - anticoagulation for nonocclusive acute PVT - no need for ERCP at this time; patient can eat from our perspective - follow up with new pancreas consult next week Thank you for involving us in the care of this patient. We will continue to follow along. Please page the GI consult pager at [phone] with any questions or concerns. Jewel Vazquez MD GI & Hepatology fellow, PGY-6 SE WIRE DRAWER Namita Meade RDN, LD - 08/12/2020 1:23 PM CST Clinical Nutrition: Initial Assessment RECOMMENDATIONS REQUIRING MD/PROVIDER ORDER 1.) Consider adding a Multivitamin with minerals given prolonged poor PO (as evidenced by weight loss and diet history) For questions about patient's nutritional care please contact pager [phone] on weekdays or [phone] on weekends/holidays. on weekends/holidays. NUTRITION ASSESSMENT: Mr. Campbell is a 55-year-old male with a history of pancreatic adenocarcinoma, post ERCP pancreatitis,and hyperbilirubinemia hospitalized on [place] [address] ([facility]) for evaluation and management of fever and leukocytosis developing approximately 2 weeks following onset of post ERCP pancreatitis. Requested to see patient for evaluation of: positive nursing baseline nutrition screen with a MST score of 2 or greater. MALNUTRITION CRITERIA: Nutrition focused physical exam completed by this flex o writer operator today and revealed the following: Recent Oral Intake Average estimated Intake: Less than 75% for greater than 7 days Weight Changes Weight Loss: >5% in 1 month(~10% in one month) Body Fat Body Fat: Mild Loss Orbital Region: Slightly dark circles, somewhat hollow look Muscle Mass Muscle Mass: Moderate Loss Clavicle Bone Region (Pectoralis Major, Deltoid, Trapezious Muscles: Visible in male, some protrusion in female Clavicle and Acromion Bone Region (Deltoid Muscle) : Acromion process may slightly protrude Nutritional Status: Non-severe (moderate) Malnutrition Malnutrition in the Context of: Chronic Illness Current nutrition orders: Current Diet: Adult Diet Regular starting at 08/12 1304, Advance diet as tolerated starting at Current Nutrition (since admission): patient has a good appetite. He is hungry as he hasn't been able to eat this admission, his diet was just advanced this afternoon. Patient's NFPE revealed non-severe (moderate) malnutrition in the context of chronic illness. Given his prolonged poor PO, will also recommend a multivitamin to meet micronutrient needs. Will monitor for fatty, floating stools. Nutrition History: patient said he wasn't able to eat much of anything his last admission d/t coma, this is likely what contributed to a majority of his weight loss: 10% in one month. Patient said thathe has been able to control his food related pancreatitis symptoms by having small, frequent meals, eating upright, and chewing well. If he doesn't do this, he stated he gets gas. Medications: reviewed Pertinent Labs: reviewed ANTHROPOMETRICS: Height: 172.7 cm Admission Weight: 82.4 kg (08/12/2020) Current Weight: 82.4 kg BMI (Calculated): 27.6 kg/m?? Weight change since admission: 0 kg Weight History: 07/09/2020 - 91.6 kg 08/05/2020 - 87.9 kg 08/12/2020 - 82.4 kg *significant weight loss of 9.2 kg in one month (10%) ESTIMATED NEEDS: Total Calorie Needs: 6777-8969 calories/day Method to Estimate Energy Needs: Ramirez-[place] (Basal + 20%) Weight Used for Equation Calculations: 82.4 kg Total Protein Needs: 99 - 124 grams/day Method to Estimate Protein Needs (g/kg): 1.2 - 1.5 gm/kg Weight Used to Calculate Protein Needs (Kg): 82.4 kg NUTRITION DIAGNOSIS: Malnutrition (undernutrition) related to medical status (pancreatic adenocarcinoma management) as evidenced by patient's diet history, weight loss, and NFPE NUTRITION PLAN/MONITORING/EVALUATION: Interventions: Increase nutrient intake with small, frequent meals and/or snacks, Vitamin and mineral supplements. Monitoring: Meals/Supplement Intake, Weight Status, Pertinent Labs . . Will monitor for, and respond to significant changes in patient's nutritional status and/or medical condition. SE WIRE DRAWER documented in this encounter H&P Notes Heldt Az Zhu M.D. - 08/13/2020 6:07 AM CST T Medicine 2 ([facility]) PROGRESS NOTE SUBJECTIVE Overnight: The patient had abdominal pain the beginning of the night history of 5 mg oxycodone and Tylenol. This morning patient is feeling much better and his abdominal pain is well controlled with the current pain regimen with oxycodone and tylenol PRN.. He denies shortness of breath, chest pain or nausea. I have reviewed the current medication list. OBJECTIVE VITAL SIGNS Temperature: [36.3 ??C-37.4 ??C] 36.3 ??C Resp Rate: [14-18] 18 Blood Pressure: (113-128)/(66-82) 123/80 SpO2: [96 %-100 %] 98 % Flow Rate (L/min): [0 L/min] 0 L/min Pulse Rate: [78-96] 79 PHYSICAL EXAM General: Alert, interactive, not acutely ill. Skin: No rashes or lesions. Eyes: Pupils equal and round. ENT: Hearing grossly intact. Lymph: No cervical, axillary, inguinal, or subclavicular adenopathy. Lungs: Clear to auscultation. No wheezes or crackles. Heart: Regular rate and rhythm. 2/6 systolic murmur. No lower extremity edema. Abdomen: Soft, flat, bowel sounds normoactive, mild diffuse tenderness to palpation, nondistended, no palpable masses or organomegaly. Neuro: Grossly intact. Moves all extremities. Mental: Mood and affect congruent. Alert and oriented. Attention intact. No evidence of disorganizedthinking. Reliable history live in caregiver. MSK: No lower extremity edema, tenderness, or palpable cord DIAGNOSTICS I have personally reviewed the laboratory data and imaging since admission, and in/outs for past 72 hours. ASSESSMENT / PLAN Mr. Campbell is a 55-year-old male with a history of pancreatic adenocarcinoma, post ERCP pancreatitis,and hyperbilirubinemia hospitalized on [place] [address] ([facility]) for evaluation and management of fever and leukocytosis developing approximately 2 weeks following onset of post ERCP pancreatitis. CT abdomen showed acute non-occlusive portal vein thrombus w/o feature of tumor thrombus but concerning for pancreatitis. Differential diagnosis includes septic endophlebitis, pancreatic pseudocyst formation. Per GI rec will continue on zosyn to cover septic pheblitis of the PVT. If not alternate cause is identified (negative blood cultures) he can be dismissed on ciprofloxacin/metronidazole for empiric treatment of septic PVT. His hepatic function labs were downtrending this morning therefore GI will not perform an ERCP today PLAN Per GI recs -follow up [facility] and outside blood cultures -antibiotic treatment for presumed septic acute PVT -anticoagulation for nonocclusive acute PVT - no need for ERCP at this time; patient can eat from our perspective - follow up with new pancreas consult next week # Pancreatic adenocarcinoma # Obstructive jaundice s/p biliary stent # Post ERCP pancreatitis # Possible cholangitis # Hyperbilirubinemia # Abdominal pain # Leukocytosis - biopsy proven pancreatic adenocarcinoma, T3 N0 Mx by endosonographic criteria - s/p ERCP w/ CBD stenting 07/29, restented 08/04 for stenosis ??-CT scan was also notable for nonocclusive clot in the portal vein at the confluence Diet: NPO diet Tubes/lines: PIV VTE prophylaxis: enoxaparin Code status Full Code :Surrogate Decision Maker: Spouse, Disposition: Uncertain Non-severe (moderate) Malnutrition The patient meets the ASPEN Criteria of malnutrition based on: ?? Average estimated Intake: Less than 75% for greater than 7 days ?? Weight Loss: >5% in 1 month(~10% in one month) ?? Body Fat: Mild Loss ?? Muscle Mass: Moderate Loss This is in the context of Chronic Illness. Malnutrition Present Upon Admission: Yes Agree with Registered Dietitian's assessment and treatment plan: Interventions: Increase nutrient intake with small, frequent meals and/or snacks, Vitamin and mineral supplements ?? Plan discussed with [facility] Medicine 2 ([facility]) Mold Worker, Reji Choi M.D.. Please page the [facility] Medicine 2 ([facility]) service pager at [phone] with any questions. Reji Goodrich M.D. - 08/12/2020 10:27 AM CST I saw and examined the patient and agree with documentation from the medicine 2 service. This is a 55-year-old man here as a transfer from [place] [facility] who was recently diagnosed with pancreatic adenocarcinoma as outlined below. His initial hospitalization where the diagnosis was made was complicated by post ERCP pancreatitis. Symptoms have been gradually improving eversince discharge on August 05. He presented to the emergency department because of fevers and chills. Fevers were all documented at home with a T-max of 102??. He has not had worsening of abdominal symptoms. He has no new pulmonary symptoms. No other infectious sources on history. #1 Fever #2 Pancreatic head adenocarcinoma, diagnosed on July 29 biopsy #3 Common bile duct stricture, metal stent placement and sphincterotomy July 29 with subsequent ERCP August 04 to resolve gallstone occlusion #4 Post ERCP pancreatitis The patient presents with new fever in the context of recent procedures, cancer diagnosis, and pancreatitis. Abdominal symptoms have not worsened, but complications of pancreatitis see most likely on the basis of outside CT. Ascending cholangitis less likely in the context of continued improvement in l iver tests and absence of new pain. Will workup for infection elsewhere, but not clinically evident.Low clinical suspicion for VTE, but will continue to reassess. We will check blood work and cultures, right upper quadrant ultrasound, and read of the outside CT from yesterday. GI consultation regarding management of pancreatitis complication. In the meantime, continue Zosyn. Tobias Hernandez M.D., M.S. - 08/12/2020 6:41 AM CST [facility] Medicine ([facility]) Admission Note SUBJECTIVE CHIEF COMPLAINT Pancreatitis versus cholangitis HISTORY OF PRESENT ILLNESS Mr. Adam Campbell is a previously healthy 55 y.o. male with a history of recently diagnosed pancreatic adenocarcinoma status post biliary stent, post ERCP pancreatitis, who presents with leukocytosis, abdominal pain and fever to the [place] [facility]. On 07/26 the patient was evaluated in the [place] [facility] for abdominal pain, dark urine, diarrhea and jaundice. He was found to have a bilirubin of 6.[address] abdomen pelvis at that time showed a 2.6 cm ill-defined mass on the pancreatic head suspicious for malignancy as well as bile duct dilatation to 15 mm. On 07/29 the patient underwent ERCP which showed severe biliary stricture of the main bile duct. Sphincterotomy was performed and a single uncovered metal stent was placed in the common bile duct. He then underwent upper EUS and biopsy of the pancreatic head mass which was consistent with adenocarcinoma, staged as T3 N0 Mx by endosonographic criteria. He developed diffuse abdominal pain immediately after procedure despite narcotic medication. He was diagnosed with post ERCP pancreatitis and was treated with IV fluids and pain medication. His pain continued to worsen and repeat CT abdomen pelvis indicated perinephric and ureteral stranding with no stone. He underwent repeat ERCP 08/04 and was found to have stenosis the biliary stent and sludge/stone which was dilated and restented. Bilirubin trended down his pain improved postprocedure. Hepatobiliary and Oncology were consulted. He was to receive 3-4 weeks of neoadjuvant chemotherapy with plans to move forward with combination chemotherapy radiation should he respond well to the initial induction chemotherapy. If he responded well they would consider resection. He is discharged 08/05/2020 with follow-up. On 08/11 he again presented to the [place] due to fever to 102 at home. [place] [address]. His lipase and LFTs were normal and his bilirubin was improved. CT abdomen in the outlying facility indicated pancreatitis with concerns for early pseudocyst. There was also concern for COVID associated pancreatitis. He was started on Zosyn empirically. He was transferred to [facility] for further evaluation and management. On presentation to the floor he confirms the above history. He states that on 08/11 he developed a fever to 101 and 102 at home. At this time he did feel sweaty and feverish. He has continued to have some abdominal pain since his discharge from the hospital on 08/05 although he has not had any acute worsening of his abdominal pain in it generally has continued to improve. He has been tolerating PO solids and liquids well with intermittent sharp abdominal pain which he relates to gas pain that is worsened with fattyor sugary foods. His abdominal pain is associated with belching and flatus. The pain is made better with ibuprofen. He denies nausea, vomiting, constipation, diarrhea, chest pain, shortness of breath, congestion, pain or swelling in his legs, or any neurologic symptoms. He is in the process of arranging for outpatient evaluation with Oncology and hepatobiliary surgery at [place]. He is scheduled to see [facility] on 08/18. Past Medical History: Diagnosis Date ??? Carpal Tunnel Syndrome Right , Past Surgical History: Procedure Laterality Date ??? CARPAL TUNNEL RELEASE ??? CIRCUMCISION N/A Circumcision ??? TONSILLECTOMY AND ADENOIDECTOMY N/A Tonsillectomy and adenoidectomy ??? VASECTOMY N/A Vasectomy , Family History Problem Relation Age of Onset ??? Lung cancer Maternal Grandmother , Social History Socioeconomic History ??? Marital status: Spouse name: None ??? Number of children: None ??? Years of education: None ??? Highest education level: None Occupational History ??? None Social Needs ??? Financial resource strain: None ??? Food insecurity Worry: None Inability: None ??? Transportation needs Medical: None Non-medical: None Tobacco Use ??? Smoking status: Never Smoker ??? Smokeless tobacco: Never Used Substance and Sexual Activity ??? Alcohol use: Never Frequency: Never ??? Drug use: Never ??? Sexual activity: None Lifestyle ??? Physical activity Days per week: None Minutes per session: None ??? Stress: None Relationships ??? Social connections Talks on phone: None Gets together: None Attends quaker service: None Active member of club or organization: None Attends meetings of clubs or organizations: None Relationship status: None ??? Intimate partner violence Fear of current or ex partner: None Emotionally abused: None Physically abused: None Forced sexual activity: None Other Topics Concern ??? None Social History Narrative ??? None and No Known Allergies Current Outpatient Medications on File Prior to Encounter: ??? ascorbic ceev-ojbyimim-xvv (Emergen-C) 1,000 mg powder effervescent in packet, Take 1 packet by mouth daily as needed., Past Week at Unknown time ??? ibuprofen (ADVIL,MOTRIN) 400 mg tablet, Take 400 mg by mouth 2 (two) times a day as needed for pain., 08/11/2020 at Unknown time REVIEW OF SYSTEMS Pertinent items are noted in HPI; all other review of systems was negative. OBJECTIVE VITAL SIGNS Temperature: [36.3 ??C-37.3 ??C] 37.3 ??C Resp Rate: [15-17] 15 Blood Pressure: (113-128)/(66-82) 121/75 SpO2: [96 %-98 %] 97 % Height: [172.7 cm] 172.7 cm Weight: [82.4 kg] 82.4 kg BSA (Calculated - sq m): [1.99 sq meters] 1.99 sq meters BMI (Calculated): [27.6 kg/m??] 27.6 kg/m?? Pulse Rate: [78-92] 92 PHYSICAL EXAM General: Alert, interactive, not acutely ill. Skin: No rashes or lesions. Eyes: Pupils equal and round. ENT: Hearing grossly intact. Lymph: No cervical, axillary, inguinal, or subclavicular adenopathy. Lungs: Clear to auscultation. No wheezes or crackles. Heart: Regular rate and rhythm. 2/6 systolic murmur. No lower extremity edema. Abdomen: Soft, flat, bowel sounds normoactive, mild diffuse tenderness to palpation, nondistended, no palpable masses or organomegaly. Neuro: Grossly intact. Moves all extremities. Mental: Mood and affect congruent. Alert and oriented. Attention intact. No evidence of disorganizedthinking. Reliable history live in caregiver. MSK: No lower extremity edema, tenderness, or palpable cord. DIAGNOSTICS I have reviewed the labs, ECG, xray and diagnostics from admission. ASSESSMENT / PLAN Mr. Campbell is a 55-year-old male with a history of pancreatic adenocarcinoma, post ERCP pancreatitis,and hyperbilirubinemia hospitalized on [facility] 2 ([facility]) for evaluation and management of fever and leukocytosis developing approximately 2 weeks following onset of post ERCP pancreatitis. His new fever and leukocytosis or concerning for possible complicated pancreatitis including pseudocysts, walled-off necrosis or abscess. Other considerations include ascending cholangitis possibly due to occlusion of common bile duct stent. He has also seen to have an infiltrate in his right upper lobe on CT chest which raises concern for an infectious process versus possible wedge infarct from pulmonary embolism. # Pancreatic adenocarcinoma # Obstructive jaundice s/p biliary stent # Post ERCP pancreatitis # Possible cholangitis # Hyperbilirubinemia # Abdominal pain # Leukocytosis - biopsy proven pancreatic adenocarcinoma, T3 N0 Mx by endosonographic criteria - s/p ERCP w/ CBD stenting 07/29, restented 08/04 for stenosis PLAN > CMP, CBC, Lipase > blood cultures > CXR to evaluate for developing pneumonia > interpretation of outside CT C/A/P > RUQ US to assess bile duct > continue empiric piperacillin/tazobactam > continuous LR at 125 mL/hr while NPO > consult GI > NPO for possible ERCP > will consider lower extremity ultrasound to evaluate for DVT pending over-read of outside CT chest. Will also consider obtaining a dedicated CTA chest is suspicion for PE remains high. Diet: NPO diet Tubes/lines: PIV VTE prophylaxis: enoxaparin Code status Full Code :Surrogate Decision Maker: Spouse, Disposition: Uncertain Tobias Garcia MD Internal Medicine, PGY1 Pager [phone] SE WIRE DRAWER documented in this encounter Procedure Notes Reji Bales M.D. - 08/15/2020 2:54 PM CST PATIENT DISPOSITION Return to inpatient bed. POST-PROCEDURE DIAGNOSIS Central line need for antibiotics. PROCEDURE PERFORMED AND DESCRIPTION From the left basilic vein a 4 [place] 53 cm single-lumen power PICC solo was placed to the right atrium. The catheter is ready for use. PROCEDURE DETAILS See Radiology Report SPECIMENS REMOVED None FINDINGS Normal PRIMARY PROCEDURALIST Reji Bales MD. ASSISTANTS None. COMPLICATIONS None. DRAINS None. IMPLANTS None. ANESTHESIA Local Anesthesia. FLUIDS None. ESTIMATED BLOOD LOSS <5ml CURRENT MEDICATIONS No Medication Changes FOLLOW-UP LETTER None. MAY RETURN TO WORK Not applicable PATIENT INSTRUCTIONS No return appointment SE WIRE DRAWER documented in this encounter Consult Notes Gael Ruiz M.D. - 08/14/2020 7:23 AM CSTAssociated Order(s): IP CONSULT TO INFECTIOUS DISEASES Infectious Diseases [facility] Consulting Service Consult Note SUBJECTIVE REASON FOR CONSULT We are seeing Mr. Campbell at the request of Reji Parsons M.D. to give further recommendations for evaluation and management of Gram positive bacteremia. HISTORY OF PRESENT ILLNESS ??is a 55-year-old male with a history of pancreatic adenocarcinoma, post ERCP pancreatitis, and hyperbilirubinemia hospitalized on [place] [address] ([facility])??for evaluation and management of fever and leukocytosis??developing approximately 2 weeks following onset of post ERCP pancreatitis. Mr. Campbell originally presented to [place] ED on 07/26 for evaluation of abdominal pain and jaundice, CT abd/pelvis revealed a mass in the pancreatic head and bile duct dilation. Pt had an ERCP on 07/29 which revealed severe biliary stricture in the main bile duct (malignant appearing) so biliary sph incterotomy was performed and one metal stent was placed in the CBD. 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 Hewas then admitted on 07/30 for post ERCP pancreatitis, CT abdomen done for worsening pain on 08/01 despite morphine CEMENT GUN OPERATOR revealed pancreatitis. Due to continued pain underwent repeat ERCP on 08/04 foundto have stenosis of the biliary stent w/ stone which was removed then stent dilated, pain much improved post-procedure. Discharged on 08/05/20 with Oncology follow up scheduled on 08/12/20 with 3-4 weeks of neoadjuvant chemotherapy plan. Prior to making it ot this appointment the patient re-presented to [place] ED on 08/11 due to developing a fever and chills on 08/11, and CT indicated pancreatitis w/ concerns of early pseudocyst. Pt was started on zosyn and transferred to [facility] due to his preference, and management of i nfection. Patient has been afebrile for the past several days, with normal pulse, hemodynamic stability, and UDAY. On presentation WBC was 21.2 which has trended down to 16.2 today. Total bilirubin 4.5 trending to 2.9 (direct 2.2 today), alt 81 trending to 58, ast 69 trending to 46, and lipase WNL. Blood cultures from day of admission revealed 3/6 cultures w/ gram + coccus resembling streptococcus. UA unremarkable. CT abdomen/pelvis reveals evolving acute pancreatitis w/o definite drainable fluid collections and new nonocclusive left and main portal vein thrombus. GI assessed the patient and note that with im proving hepatic biochemistries there is likely no benefit from ERCP. They additionally note that hisnew non-occlusive portal vein thrombus is not likely tumor thrombus which may be septic. They have recommended lovenox and 4-6 weeks of abx for possible septic thrombus. Upon seeing the patient today he is doing well, states that he has an appetite, is having regular bowel movements, urinating regularly, ambulating normally. Furthermore he denies any symptoms of pain except for some abdominal soreness. Denies chest pain, cough, dyspnea, headache, sore throat, sinus congestion, sharp abdominal pain, nausea, vomiting, diarrhea, constipation, rash, dysuria, leg swelling, or focal neurological deficits. The following portions of the patient's history were reviewed and updated as appropriate: allergies,social history, current medications, surgical history, family history, problem list and medical history All other systems reviewed and are negative. OBJECTIVE PHYSICAL EXAMINATION Vital Signs: I have reviewed the current vital sign data as applicable. Vitals signs reviewed. Constitutional General: He is not in acute distress. Appearance: He is normal weight. He is not ill-appearing, toxic-appearing or diaphoretic. HENT Head: Normocephalic. Nose: No congestion. Eyes Conjunctiva/sclera: Conjunctivae normal. Comments: No petechial rash on eyelids Cardiovascular Rate and Rhythm: Normal rate and regular rhythm. Pulses: Normal pulses. Heart sounds: Normal heart sounds. No murmur. Pulmonary Effort: Pulmonary effort is normal. No respiratory distress. Breath sounds: Normal breath sounds. Abdominal General: There is no distension. Palpations: Abdomen is soft. Tenderness: There is no abdominal tenderness. Musculoskeletal Right lower leg: No edema. Left lower leg: No edema. Skin General: Skin is warm. Capillary Refill: Capillary refill takes less than 2 seconds. Findings: No rash. Comments: No signs of osler nodes, janeway lesions Neurological General: No focal deficit present. Mental Status: He is alert and oriented to person, place, and time. Psychiatric Mood and Affect: Mood normal. Behavior: Behavior normal. Thought Content: Thought content normal. Judgment: Judgment normal. DIAGNOSTICS: I have reviewed diagnostics. Studies of note include: US Gallbladder and/or biliary ducts (08/12/20): No biliary obstruction. Limited ductal evaluation due to poor acoustic windows and pneumobilia. DX Chest AP or PA and Lateral 2 Views (08/12/20): No radiographic comparison. A small left pleural effusion is present with associated atelectasis in the left lower lung. Low lung volumes with mild atelectasis in the right lower lung. No areas of consolidation or airspace opacity. Common bile duct stent. Interpretation of outside CT chest/abdomen/pelvis (08/12/20): 1. Extensive soft tissue thickening and edema diffusely about the pancreas, worsened and evolving serially since 07/30/2020, consistent with acute pancreatitis. No definite definable/drainable fluid collection or definite pancreatic non-enhancement. 2. Uncinate process mass, status post metal common bile duct stent, favoring adenocarcinoma, not discretely resolved given extensive surrounding inflammatory changes. 3. Nonocclusive left and main portal vein thrombus, new from 07/30/2020. 4. Tiny indeterminate scattered pulmonary nodules, unchanged from 07/30/2020. Attention on subsequent imaging is recommended. 5. Small left pleural effusion and left lower lobe atelectasis. Culture: Blood culture x2 (08/12/20): Gram + coccus resembling streptococcus 3/6 (growth after 23hrs) Blood culture x2 (08/13/20): PENDING ASSESSMENT / PLAN Mr. Campbell is a 55-year-old male with a history of pancreatic adenocarcinoma s/p CBD stenting on 07/29 with restenting on 08/04, post ERCP pancreatitis, and hyperbilirubinemia hospitalized on [place] [address] ([facility]) for evaluation and management of fever and leukocytosis developing approximately 2 weeks following onset of post ERCP pancreatitis, ID consulted for gram positive bacteremia. # Gram positive bacteremia (streptococcus species) # Nonocclusive left/main portal vein thrombosis # Pancreatic head adenocarcinoma (dx 07/29) s/p biliary stenting # Obstructive jaundice s/p biliary stent # Post ERCP pancreatitis Mr. Campbell has grown gram positive bacteremia with streptococcus species in the context of recently diagnosed pancreatic head adenocarcinoma s/p 2 ERCP w/ stent placement and post ERCP pancreatitis, nowwith new nonocclusive left/main portal vein thrombosis. The patient presented without focal symptoms, just experiencing fever and chills. Based on history, physical exam, and radiographic evaluation todate, it is highly likely that this bacteremia is a result of an intraabdominal complication of his pancreatic cancer/ procedural interventions for this. There is a possibility that the bacteria translocated from the pancreas in the context of the significant inflammation surrounding it, but considering the presence of the portal vein thrombosis we cannot discount the possibility of an infected thrombus. Therefore the patient is likely going to require IV antibiotic therapy for 4-6 weeks. The selection of antibiotic will depend on the specific species of the bacteria. 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 It is reassuring that the patient has improved on zosyn indicating that at minimum we are not dealing with VRE. For now we will recommend continuing IV zosyn and if streptococcus anginosus is confirmed the patient can be narrowed to IV ceftriaxone 2g q24hrs. I have very low suspicion that this gram positive bacteremia has caused endocarditis. There is only evidence of low grade bacteremia at this point (one day of positivity), the patient has no prior valvular abnormalities that have been noted, he has no history of cardiac devices, IVDU, immunosuppression, or dental/surgical procedures. Additionally, prelim read identifies this bacteria as streptococcusanginosus which based on Mat, Prevalence of Infective Endocarditis in Bloodstream Infections is Dependent on Streptococcal Species, 2020, Circulation has a fairly low risk (4.8%) of causingendocarditis. Therefore we do not recommend further evaluation with TTE or MELI at this time, though this is subject to change if the patient has persistent bacteremia. RECOMMENDATIONS: 1. Continue IV zosyn at this time 2. Transition to IV ceftriaxone 2g q24hrs today if streptococcus anginosus is confirmed 3. Patient will require 4-6 weeks of IV antibiotics necessitating PICC placement 4. We will narrow antibiotics based on speciation of bacterial cultures 5. We will follow until tomorrow to ensure that blood cultures have cleared We will follow along closely. Please page the [facility] service pager at [phone] withquestions. Thank you for the consultation. Electronically signed by: Gael Ruiz M.D. 08/14/20 10:38 AM COARSE WIRE DRAWER SE WIRE DRAWER Associated attestation - Jewel Toledo M.D. - 08/14/2020 1:12 PM COARSE WIRE DRAWER I saw and evaluated the patient, participating in the patel portions of the service. I reviewed Dr. Ruiz 's note. I agree with the documented findings and plan. 55 y/o male with a history of pancreatic adenocarcinoma s/p CBD stenting on 07/29 with restenting on08/04 s/p ERCP pancreatitis admitted with fever and leukocytosis about 2 weeks following his ERCP pancreatitis episode found to have GPC bacteremia. He also has a new non-occlusive left/main portal vein thrombosis. The isolate was just identified as Streptococcus anginosus. This is 100% susceptible to IV Ceftriaxone. Please change IV Zosyn to IV Ceftriaxone 2 grams Q24h today. I am anticipating a 4-6 week course of therapy. Jewel Toledo M.D. Infectious Diseases Mold Worker Pager: [phone] Arianna Marin M.D. - 08/12/2020 4:13 PM CST Inpatient Supervisory Consult Note Date of Consultation: 08/12/2020 Requesting Service: [facility] Medicine 2 ([facility]) This is a supervisory note for Dr. Jewel Vazquez M.D. I have reviewed the available records, interviewed and examined the patient. I agree with the chief complaint, history of present illness, past medical and surgical history, medications, physical examination, and impression/plan as outlined in Dr. Vazquez's note dated today except as differs below. Mr. Campbell is a 55 y.o. male with pancreatic head adenocarcinoma with metal biliary stent placement for biliary stenosis, s/p recent ERCP for ballooning who is in the hospital with fever. We have been consulted for evaluation and management of possible cholangitis. Patient was diagnosed with pancreatic cancer in mid July and underwent ERCP with uncovered metalstent placement to the common bile duct on 07/29 which was complicated by post pancreatic pancreatitis. His pain has since improved and he underwent repeat ERCP on 08/04 with removal of a biliary duct stone and dilation of tumor ingrowth into the biliary stent. He was planned for neoadjuvant chemotherapy by Oncology and discharged. On 08/11, he developed fever with elevated white count and was admitted to an outside emergency room.CT scan was concerning for pancreatitis and early pseudocyst development. He was transferred here for further management. Lipase was normal. CT scan was also notable for nonocclusive clot in the portal vein at the confluence. There is no evidence of gas and no wall thickening. Per radiology review, unlikely to be a tumor thrombus. Review of his labs shows decrease in bilirubin from 08/05 on the outside but there is elevation in his AST, ALT and alkaline phosphatase. Recommendations: - Agree with anticoagulation and antibiotics for nonocclusive portal vein thrombosis with possible septic thrombophlebitis. - Would recommend trending liver enzymes. If his transaminases continue to uptrend, would recommend repeat ERCP for evaluation of the biliary tree. Remainder per Dr. Vazquez. Thank you for involving us in the care of this patient. We will follow. Isaura Marin M.D. 08/12/20 4:13 PM COARSE WIRE DRAWER SE WIRE DRAWER Rachel West R.N. - 08/12/2020 11:22 AM CSTAssociated Order(s): IP CONSULT TO CARE MANAGEMENT Discharge Planning Assessment SUBJECTIVE Referral Data Referral Source: Nurse Referral Reason: Other (comment) Referral Reason Other: Work and short term disability Who was present during the interview?: Patient Double End Production Grinder Services Used: No Patient Information Primary Caregiver: Self Diet/Texture: Nothing by mouth Legal Information Legal Decision Maker: Self Advance Directives: (Not interested.) Caregiver Information Patient is his own caregiver. Services Requested None at this time. OBJECTIVE Functional Status (ADLs) Assistive Devices: Eyeglasses(Patient states he has shower chair available if he would need it, he also has assess to assistive devices if needed. Does not currently use either.) Dressing: Independent Feeding: Independent Bathing: Independent Grooming: Independent Toileting: Independent Transfer to/from Bed, Chair Etc.: Independent Mobility: Independent Meal Prep: Independent Medication Setup/Administration: Independent Telephone Use: Independent Housekeeping: Independent Shopping: Independent Managing Finances: Independent Behavior: Oriented Communication: Talks, Understands speaking, Understands Kyrgyz Environmental Supports Home Environment: House(1 story with basement, 2 steps to enter with handrails.) Anticipated Modifications to the Patient's Home: None Anticipated Needs/Assistive Devices Transportation Needs: Independent to drive, Support from family Finance/Insurance Primary insurance: [employer] Secondary insurance: N/A Does the Patient have any Financial Concerns?: No Income Source: Employed Income/Expense Information: Income meets expenses Discharge Planning Barriers To Discharge: None Strengths: Premorbid level of function, Attitude of family, Attitude of self, Home design, Ability to acquire knowledge Type of Residence: Private residence Support Systems: Spouse, Children Assistance Recommended after Discharge: None Home Care Services: No Anticipated Discharge Destination: Home or Self Care Does the patient need discharge transport arranged?: No(Patient's to drive him home, Shaniqua.) ASSESSMENT / PLAN Assessment: The coastal/harbor defense officer met with Adam Campbell to discuss his current hospitalization and home going needs. The patient was unaccompanied. The patient was a reliable historian. The role of coastal/harbor defense officer was reviewed. The patient reviewed his prior level of care and support system. The patient receives support from his and children. The patient described his living environment as a single level home with stairs to enter with rails.Housekeeping, grocery shopping, meal prep, and other household responsibilities have previously beencompleted by patient and patient's . coastal/harbor defense officer discussed the patient's potential needs at [facility] based on their home setting, previous needs and responsibilities, homebound status, and relevant assessments with the patient. The patient will be safe and supported to return home with familywhen medically ready. Support will be provided by his and children. The patient demonstrated understanding when discussing his home going plans and anticipated needs. Patient was agreeable with meeting with flight engineer manager to discuss home going needs. Patient is currently living in a one story home with a basement. Patient states that there is two steps to enter with handrails. Patient does not currently have home health care. Patient currently has been independentwith all activities of daily living. At this time, the care team has not identified any skilled post-hospital discharge care needs that require the assistance of the Care Management Team. After reviewing the patient's chart and meeting with the patient, the coastal/harbor defense officer deemed the LACE+/readmission questions were appropriate. The patient explained that his current admission was due to fever.The patient stated that he had no difficulty obtaining, understanding, or using his medications as directed. The patient reports no other concerns regarding his medications. A primary care provider has been identified Dr. Mills at [facility]; The patient has not been having difficulty making or attending appointments with his PCP. The patient stated his current admission could not havebeen prevented. The coastal/harbor defense officer will share this information with the care team. The patient reports understanding that he will dismiss from the hospital when medically stable. Pending hospital course and medical readiness, no barriers to dismissal have been identified at this time. Plan: The patient agrees with the following plan. 1. Patient's anticipated discharge disposition is: Home to Self Care 2. Transportation upon dismissal will be provided by family--, Shaniqua. 3. coastal/harbor defense officer recommended nothing at this time. 4. coastal/harbor defense officer provided information regarding the dismissal process. 5. coastal/harbor defense officer placed or requested the following hospital-based consult orders and/or referrals:None. 6. coastal/harbor defense officer will continue to assess for homegoing needs with the interdisciplinary team. 7. coastal/harbor defense officer encouraged the patient to reach out with any questions/concerns. Care Management will continue to follow. Signed by: Rachel West R.N. 08/12/2020 SE WIRE DRAWER Jewel Vazquez M.D. - 08/12/2020 10:10 AM CSTAssociated Order(s): IP CONSULT TO GASTROENTEROLOGY GASTROENTEROLOGY & HEPATOBILIARY CONSULT Date/Time: 08/12/2020 10:10 AM COARSE WIRE DRAWER Patient Name: Adam Campbell : 1965 CONSULT Evaluation of: Pancreatic adenocarcinoma with fever to 102 F Referring Provider: Reji Parsons M.D. HISTORY OF PRESENT ILLNESS Mr. Adam Campbell is a 55 y.o. 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 He is presently on the Medicine 2 service after presenting to the [place] ED. Regarding his pancreatic history, on July 26, the patient was evaluated in the [place] [facility] Department for abdominal pain, dark urine, loose stools, and jaundice. His bilirubin at that time was 6.4, with deranged hepatic biliary biochemistries. CT of the abdomen pelvis showed a 2.6 cm ill-defined mass of the pancreatic head, with upstream bile duct dilatation to 15 mm. Biopsy of the mass later confirmed pancreatic adenocarcinoma. CA-19-9 on 07/31 was 21/ Pre-ERCP labs on 07/29: bilirubin total 8.3 (direct 6.4), alk phos 180, ALT 195, AST 74; lipase 17.5(wnl). On 07/29, the patient underwent an ERCP, which showed severe biliary malignant stricture of the mainduct, for which sphincterotomy was performed and a single uncovered metal stent was placed in the common bile duct. Endoscopic ultrasound- guided biopsy of the pancreatic mass was also performed. He developed diffuse abdominal pain following the procedure, and Tavarez the diagnosis of post ERCP pancreatitis (post-ERCP 07/29 labs: lipase 1300). Labs on 08/03: bilirubin total 14.0 direct (11.3), alk phos 195, ALT 56, AST 45. Labs on 08/04: bilirubin total 13.8 direct (10.8), alk phos 197, ALT 47, AST 49. He underwent repeat ERCP on 08/04, and was found to have biliary stent stenosis and a stone. The stone was removed in the biliary stent was dilated. His bilirubin decreased after the procedure. At thattime hepatobiliary and Oncology were consulted, it was recommended that he receive 3 or 4 weeks of neoadjuvant chemotherapy plans to move forward with combination chemotherapy and radiation if he responded to the initial chemotherapy. Following this, surgical planning would take place. He was discharged on 08/05. Labs on 08/05: bilirubin total 11.0 (direct 8.9), alk phos 190, ALT 44, AST 51. On 08/11, the patient again presented to the [place] [facility] Department for worsening abdominalpain, fever, no elevated white blood count 26. Lipase and LFTs were normal, and bili room was approved prior. CT of the abdomen the outside facility indicated pancreatitis with early pseudocyst. He hadbeen started on Zosyn empirically. He was then transferred to [facility] for further evaluation and management. On my interview with the patient, he endorsed a fever to 102?? F last night around 8:00 p.m.. This is 1st time he said of fevers part of his pancreatic picture. He denies any worsened abdominal discomfort, nausea, vomiting. He still maintains an appetite. He has had no change to his bowel habits, which are mostly solid stools, not a colic and without blood. He has not had any dermatologic changes, worsening jaundice/icterus, joint effusions or inflammation. No sick contacts, and no change in medications. REVIEW OF SYSTEMS Negative except per HPI. PHYSICAL EXAM Vitals: BP 121/75 (BP Location: Left arm;Upper, Patient Position: Lying) Pulse 92 Temp 37.3 ??C (Oral) Resp 15 Ht 172.7 cm Wt 82.4 kg SpO2 97% BMI 27.62 kg/m?? General: Sitting comfortably in bed. Cooperative, in no acute distress. Eyes: Clear, non-injected, anicteric sclera. ENT: MMM. No oropharyngeal exudate, erythema, or lesions. Cardiac: Normal rate, regular rhythm. S1, S2 auscultated with no murmurs, rubs, or extra heart sounds. Lungs: Non-labored breathing on room air. Clear to auscultation bilaterally. No wheezes, rales, rhonchi. Abdomen: Tender to palpation in the epigastric region and left upper quadrant Extremities: Warm and well-perfused UE and LE. Skin: No rashes. Neuro: Alert, oriented x 3. PERTINENT DIAGNOSTIC STUDIES LABS No results for input(s): WBC, HGB, PLT, INR, PTT, NA, K, CL, CO2, BUN, CREATININE, GLU, CALCIUM, PROT, ALBUMIN, BILITOT, AST, ALT, ALKPHOS in the last [address] scan 08/12 1. Extensive soft tissue thickening and edema diffusely about the pancreas, worsened and evolving serially since 07/30/2020, consistent with acute pancreatitis. No definite definable/drainable fluid collection or definite pancreatic non-enhancement. 2. Uncinate process mass, status post metal common bile duct stent, favoring adenocarcinoma, not discretely resolved given extensive surrounding inflammatory changes. 3. Nonocclusive left and main portal vein thrombus, new from 07/30/2020. 4. Tiny indeterminate scattered pulmonary nodules, unchanged from 07/30/2020. Attention on subsequent imaging is recommended. 3. Small left pleural effusion and left lower lobe atelectasis. ASSESSMENT AND PLAN #. Pancreatic adenocarcinoma of the pancreatic head/uncinate process (dx by EUS 07/29/2020) #. 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 Post-procedural pancreatitis (07/29/2020) #. Fever to 102 F with leukocytosis to 21 and thrombocytosis (368k) #. Abdominal discomfort #. New non-occlusive portal vein thrombosis Mr. Adam Campbell is a 55 y.o. male with biopsy-prove pancreatic adenocarcinoma of the pancreatic head (by EUS 07/29/2020) complicated by malignant biliary stenosis, status post metal biliary stent (placed 07/29/2020), complicated by stent stenosis requiring ERCP-based stent dilation (08/04/2020); he additionally has a diagnosis of post-procedural pancreatitis from 07/29/2020 procedures. He is now [facility] 2 service after presenting to the [place] ED for abdominal pain, fever, and leukocytosis. Gastroenterology has been consulted given the clinical picture above in setting of fever. His CT scan dated 08/11/2020 showed left hepatic lobe pneumobilia, which is expected status post sphincterotomy with metal biliary stent. The stent has debris but is patent, and there is no upstream biliary dilatation. There was a nonocclusive segmental thrombus in left portal vein and main portal vein, extending to the portal splenic confluence, and this was not present on 07/30/2020. There is large, diffuse perinephric edema and soft tissue thickening. The stomach and duodenum were decompressed, suggestive of the absence of gastric outlet obstruction. There is no free intraperitoneal gas. Small bowel and colon are decompressed, suggestive of an ileus present. There is a small left pleural effusions similar to prior. Notably, there is extensive soft tissue thickening edema diffusely around the pancreas, which has worsened since his CT scan 07/30/2020, consistent with his known diagnosis of acute pancreatitis. There is not any drainable organized fluid collection, and the pancreas enhances, pointing awayfrom necrotizing pancreatitis. ASSESSMENT & RECOMMENDATIONS This gentleman has a known pancreatic head mass consistent with pancreatic adenocarcinoma based on outside pathology, biliary stenosis from this mass status post biliary stent with good biliary drainage, and evolving course of non-necrotizing/edematous pancreatitis without organized fluid collections.Given that it has only been 2 weeks since his postprocedural pancreatitis diagnosis, it is not surprising that his peripancreatic fluid collections have not organized and pancreatic pseudocyst. He has a new nonocclusive portal vein thrombosis in the setting of his pancreatitis, but we can not rule outthat this is a consequence of his known pancreatic malignancy. Given the above, his fevers are unlikely to be from ascending cholangitis, and we would not recommend ERCP at this time. The fever could be a result of a new portal vein thrombosis, but the leukocytosis seems out of proportion to this. He could have infected peripancreatic fluid, and he is fitting the right time course for when infection risk arises in pancreatitis. We agree with checking the blood for bloodstream infection. He does not appear to have pneumonia. Additionally recommend checking urine for urinary tract infection, though is not but behaving like someone with typical Gram-negative rodbacteremia. Recommendations: - Need for ERCP?: given no anticipated ERCP right now, OK from a GI stand point if he eats, but please repeat AST, ALT, bilirubin, and alk phos tomorrow, because while bilirubin is improving, AST, ALT,and AP are slightly increased from 08/04, so if these continue to increase, we will determine if he needs an ERCP for biliary duct sweep (please keep NPO at midnight). - Acute portal vein thrombosis (non-occlusive), without SMV involvement or significant ascites: given the fevers and WBC count, we need to consider septic PVT if no other cause is identified. The etiology is either related to his acute pancreatitis but we can not rule out that it is a tumor associatedthrombus from his pancreatic adenocarcinoma. I did review the CT scan with Dr. Maurice of radiology, and we discussed that this PVT was not present on the 07/30/2020 CT, so would be unlikely to represent the chante of the tumor invasion and time. A) Our first step here is to determine if this is pylephlebitis/infective suppurative thrombosis of the portal vein. To that end, please obtain blood cultures. Continue on Zosyn for now. Diagnosis will be made with the constellation of fever + PVT + bacteremia. Portal venous gas is not required for the diagnosis. If this is diagnosed, he'll need antibiotics tailored to the offending organism for 4-6 weeks. B) Second, given his hypercoagulable state (malignancy with inflammation from pancreatitis), we would recommend treatment for acute non-occlusive PVT. While it is nonocclusive, its evolution is high risk, particularly if it involves the superior mesenteric vein, so we would recommend therapeutic anticoagulation with weight based Lovenox. He will likely have to continue this until his underlying malignancy is managed. He then ought to be started on low molecular weight heparin for avid anticoagulation, he can later be switched to an oral anticoagulant if no invasive procedures are anticipated (e.g.DOAC or warfarin (with goal INR 2-3)). This patient will be staffed with Dr. Isaura Marin, with the recommendations discussed with the primaryteam. Thank you for involving us in the care of this patient. We will continue to follow along. Please page the GI consult pager at [phone] with any questions or concerns. Jewel Vazquez MD GI & Hepatology fellow, PGY-6 SE WIRE DRAWER documented in this encounter Nursing Notes Jose Mercado - 08/15/2020 6:45 PM CST Patient picked up by . Medications picked up from pharmacy. Discharge summary and education was complete and had no further questions. Vital signs were stable. Peripheral IV was removed at discharge and PICC line remains in place in left arm. See social work note from 08/15 for transition of care plans and home health services. Electronically signed by: Jose Mercado 08/15/20 6:53 PM COARSE WIRE DRAWER SE WIRE DRAWER Lena Chapman RRiazNRiaz - 08/15/2020 12:38 PM CST 08/15/20 [id number] Care Provider Notification Reason for Communication Other (Comment) (Unable to place PICC line) Care Provider Name Az Duran Care Provider Role Resident Method of Communication Call Response Other (Comment) (see note ) Recommended IR PICC line placement due to patient having history of bilateral mastectomies. Sx to cancel PICC line placement. SE WIRE DRAWER documented in this encounter Miscellaneous Notes Hospital Course - Az Duran M.D. - 08/14/2020 3:28 PM CST Mr. Adam Campbell is a previously healthy 55 y.o. male with a history of recently diagnosed (07/29/2020) pancreatic adenocarcinoma status post biliary stent, post ERCP pancreatitis, who presents with leukocytosis, abdominal pain and fever to the [place] ED ?? On 07/26 the patient was evaluated in the [place] [facility] Department for abdominal pain, dark urine, diarrhea and jaundice. He was found to have a bilirubin of 6.[address] abdomen pelvis at that time showed a 2.6 cm ill-defined mass on the pancreatic head suspicious for malignancy as well as bile duct dilatation to 15 mm. ?? On 07/29 the patient underwent ERCP which showed severe biliary stricture of the main bile duct. Sphincterotomy was performed and a single uncovered metal stent was placed in the common bile duct. He then underwent upper EUS and biopsy of the pancreatic head mass which was consistent with adenocarcinoma, staged as T3 N0 Mx by endosonographic criteria. ?? He developed diffuse abdominal pain immediately after procedure despite narcotic medication. He was diagnosed with post ERCP pancreatitis and was treated with IV fluids and pain medication. His pain continued to worsen and repeat CT abdomen pelvis indicated perinephric and ureteral stranding with no stone. He underwent repeat ERCP 08/04 and was found to have stenosis the biliary stent and sludge/stone which was dilated and restented. Bilirubin trended down his pain improved postprocedure. ?? Hepatobiliary and Oncology were consulted. He was to receive 3-4 weeks of neoadjuvant chemotherapy with plans to move forward with combination chemotherapy radiation should he respond well to the initial induction chemotherapy. If he responded well they would consider resection. He is discharged 08/05/2020 with follow-up. ?? On 08/11 he again presented to the [place] Emergency Department due to fever to 102 at home. [place] [id number]. His lipase and LFTs were normal and his bilirubin was improved. CT abdomen in the outlying facility indicated pancreatitis with concerns for early pseudocyst. There was also concern for COVID associated pancreatitis. He was started on Zosyn empirically. ?? He was transferred to [facility] for further evaluation and management. On presentation to the floor he confirms the above history. He states that on 08/11 he developed a fever to 101 and 102 at home. At this time he did feel sweaty and feverish. He has continued to have some abdominal pain since his discharge from the hospital on 08/05 although he has not had any acute worsening of his abdominal pain in it generally has continued to improve. He has been tolerating PO solids and liquids well with intermittent sharp abdominal pain which he relates to gas pain that is worsened with fattyor sugary foods. His abdominal pain is associated with belching and flatus. The pain is made better with ibuprofen. He denies nausea, vomiting, constipation, diarrhea, chest pain, shortness of breath, congestion, pain or swelling in his legs, or any neurologic symptoms. During his hospitalization CT abdomen showed acute non-occlusive portal vein thrombus w/o feature oftumor thrombus and tissusue thickening and edema diffusely about the pancreas consistent with pancreatitis. RUQ US was unrevealing. GI and ID services were consulted to help manage the patient. He was started on lovenox for the portal vein thrombosis. Blood cultures grew Streptococcus anginosus, he was switched to ceftriaxone for possible septic phlebitis of the portal vein with bacteremia. His liverfunction labs trended down and he remained hemodynamically stable for the remaining for remaining of his hospital stay. A PICC line was placed on the day of discharge so he could continue his antibiotic course in the outpatient setting. He is in the process of arranging for outpatient evaluation with Oncology and hepatobiliary surgery at [place]. He is scheduled to see [facility] on 08/18. He was discharged on 08/15/2020 and he was hemodynamically stable. PHYSICAL EXAM General: Alert, interactive, not acutely ill. Skin: No rashes or lesions. Eyes: Pupils equal and round. Mild icteric sclera ?? ENT: Hearing grossly intact. ? Lymph: No cervical, axillary, inguinal,??or subclavicular adenopathy. Lungs: Clear to auscultation. No wheezes or crackles. Heart: Regular rate and rhythm.??2/6 systolic murmur. ??No lower extremity edema. Abdomen: Soft, slight distended, bowel sounds normoactive,??mild diffuse tenderness to palpation in the epigastric area,no palpable masses or organomegaly. Neuro:?Grossly intact. ??Moves all extremities. Mental: Mood and affect congruent. ??Alert and oriented. ??Attention intact. ??No evidence of disorganized thinking. ??Reliable history live in caregiver. ?? MSK: ??No lower extremity edema, tenderness, or palpable cord SE WIRE DRAWER documented in this encounter Plan of Treatment Upcoming Encounters Date Type Specialty Care Team Description 06/22/2022 Lab Laboratory Medicine Maria Del Rosario Gomez AP RN, C.N.P., M.S. [address] [place] [address] [phone] (Wo rk) 06/22/2022 Infusion Oncology Maria Del Rosario Gomez APRN, C.N .P., M.S. [address] [place] [address] [phone] (Wo rk) 06/29/2022 Lab Laboratory Medicine Maria Del Rosario Gomez AP RN, C.N.P., M.S. [address] [place] [address] [phone] (Wo rk) 06/29/2022 Infusion Oncology Maria Del Rosario Gomez APRN, C.N .P., M.S. [address] [place] [address] [phone] (Wo rk) documented as of this encounter Procedures Procedure Name Priority Date/Time Associated Comments Diagnosis IR PICC LINE RAD - Routine 08/15/2020 2:57 Results for PLACEMENT (most inpatients PM COARSE WIRE DRAWER this proced ure and all are in the outpatients) results section. HEPATIC FUNCTION Routine 08/15/2020 6:08 Results for PANEL, S AM COARSE WIRE DRAWER this procedure are in the results section. CBC WITH Routine 08/15/2020 6:08 Results for DIFFERENTIAL, B AM COARSE WIRE DRAWER this procedu re are in the results section. BASIC METABOLIC Routine 08/15/2020 6:08 Results f or PANEL, S/P AM COARSE WIRE DRAWER this procedure are in the results section. HEPATIC FUNCTION Routine 08/14/2020 6:13 Results for PANEL, S AM COARSE WIRE DRAWER this procedure are in the results section. CBC WITH Routine 08/14/2020 6:13 Results for DIFFERENTIAL, B AM COARSE WIRE DRAWER this procedu re are in the results section. BASIC METABOLIC Routine 08/14/2020 6:13 Results f or PANEL, S/P AM COARSE WIRE DRAWER this procedure are in the results section. BACTERIA / MAXWELL Routine 08/13/2020 3:48 Result s for CULTURE, BLOOD PM COARSE WIRE DRAWER this procedur e are in the results section. BACTERIA / MAXWELL Routine 08/13/2020 3:40 Result s for CULTURE, BLOOD PM COARSE WIRE DRAWER this procedur e are in the results section. HEPATIC FUNCTION Routine 08/13/2020 6:41 Results for PANEL, S AM COARSE WIRE DRAWER this procedure are in the results section. SPSMA RESULT Routine 08/13/2020 6:41 Results for AM COARSE WIRE DRAWER this procedure are in the results section. CBC WITH Routine 08/13/2020 6:41 Results for DIFFERENTIAL, B AM COARSE WIRE DRAWER this procedu re are in the results section. BASIC METABOLIC Routine 08/13/2020 6:41 Results f or PANEL, S/P AM COARSE WIRE DRAWER this procedure are in the results section. MICROSCOPIC MANUAL Routine 08/12/2020 4:43 Result s for PM COARSE WIRE DRAWER this procedure are in the results section. BACTERIAL CULTURE, Routine 08/12/2020 4:43 Result s for AEROBIC + SUSC, URINE PM COARSE WIRE DRAWER this p rocedure are in the results section. URINALYSIS WITH Routine 08/12/2020 4:43 Results f or MICROSCOPIC PM COARSE WIRE DRAWER this procedure are in the results section. US GALLBLADDER AND OR RAD - Routine 08/12/2020 2:10 Re sults for BILIARY DUCTS (most inpatients PM COARSE WIRE DRAWER this proce dure and all are in the outpatients) results section. DX CHEST AP OR PA AND RAD - Routine 08/12/2020 12:15 R esults for LATERAL 2 VIEWS (most inpatients PM COARSE WIRE DRAWER this pro cedure and all are in the outpatients) results section. ACTIVATED PARTIAL STAT 08/12/2020 11:55 Result s for THROMBOPLASTIN TIME AM COARSE WIRE DRAWER this pro cedure (APTT), P are in the results section. BACTERIA / MAXWELL Routine 08/12/2020 10:38 Resul ts for CULTURE, BLOOD AM COARSE WIRE DRAWER this procedur e are in the results section. PROTHROMBIN TIME Routine 08/12/2020 10:21 Results for (PT), P AM COARSE WIRE DRAWER this procedure are in the results section. CBC WITH Routine 08/12/2020 10:21 Results for DIFFERENTIAL, B AM COARSE WIRE DRAWER this procedu re are in the results section. MAGNESIUM, S Routine 08/12/2020 10:21 Results for AM COARSE WIRE DRAWER this procedure are in the results section. LIPASE, S/P Routine 08/12/2020 10:21 Results for AM COARSE WIRE DRAWER this procedure are in the results section. COMPREHENSIVE Routine 08/12/2020 10:21 Results fo r METABOLIC PANEL, S/P AM COARSE WIRE DRAWER this pr ocedure are in the results section. BACTERIA / MAXWELL Routine 08/12/2020 10:20 Resul ts for CULTURE, BLOOD AM COARSE WIRE DRAWER this procedur e are in the results section. INTERPRETATION OF RAD - Routine 08/12/2020 10:19 Resul ts for OUTSIDE CT ABDOMEN (most inpatients AM COARSE WIRE DRAWER this procedure AND OR PELVIS and all are in the outpatients) results section. INTERPRETATION OF RAD - Routine 08/12/2020 10:19 Resul ts for OUTSIDE CT CHEST (most inpatients AM COARSE WIRE DRAWER this pr ocedure and all are in the outpatients) results section. AMYLASE, TOT, S Routine 08/12/2020 10:05 Results for AM COARSE WIRE DRAWER this procedure are in the results section. ECG Routine 08/12/2020 9:51 Results for AM COARSE WIRE DRAWER this procedure are in the results section. IFLU A, B, SARS Routine 08/12/2020 6:55 Results f or COV-2, PCR, RAPID,V AM COARSE WIRE DRAWER this pro cedure are in the results section. documented in this encounter Results IR PICC Line Placement (08/15/2020 2:57 PM COARSE WIRE DRAWER) Anatomical Region Laterality Modality Chest, Pelvis, Abdomen, Vascular Interventional RST LOS, N/A X-Ray Angiography Vascular Interventional ARZ LOS, Vascular Interventional FLA LOS Specimen (Source) Anatomical Collection Method Collection Time Re ceived Time Location / / Volume Laterality 08/15/2020 3:06 PM COARSE WIRE DRAWER Impressions 08/15/2020 3:12 PM COARSE WIRE DRAWER Placement of a 53 cm, 4 [place] single-lumen power PICC Solo from the left basilic vein to the right atrium. T he catheter is ready for use. NR Narrative 08/15/2020 3:12 PM COARSE WIRE DRAWER EXAM: IR PICC LINE PLACEMENT CLINICAL HISTORY: 55-year-old male patie nt with pancreatic cancer which needs IV access for antibiotics. We have been ask ed to place a peripherally inserted central venous catheter (PICC). TECHNIQUE: The left arm was sterilely pr epared and sterile drapes applied. Ultrasound-guided puncture was made into the left basilic vein approximately 3 cm above the elbow crest. A wire was fed to the right atrium. A 4 [place] single-lumen power PICC Solo was cut to 53 cm and placed through a peel-away sheath to the right atrium. The tip rest s at the junction of the superior vena cava and right atrium in respiratory ins piration. The zero reji rests at the skin site. The line was then secured to the skin with StatLock system and flushed with saline. The catheter is radha dy for use PREPROCEDURE: Patient seen and evaluated . Allergies, [...] team members, residents, and fellows were discussed. Using ultrasound guidance to access vess el, patency was shown and after anesthetizing the skin with lidocaine th e left basilic vein was punctured successfully. A permanent image was crea sally and stored. For placement of this central venous acc ess, we followed catheter checklist and a standardized protocol. The position of the catheter tip was confirmed under fluoroscopic guidance, and a final image of the catheter position was obtained. Ready for use. CT injectable PowerPICC was placed. This device can be power injected up to a pressure of 300 PSI and flow rate of 5 m L/sec. Procedure Note Reji Bales M.D. - 08/15/2020Fo rmatting of this note might be different from the original. EXAM: IR PICC LINE PLACEMENT CLINICAL HISTORY: 55-year-old male patie nt with pancreatic cancer which needs IV access for antibiotics. We have been ask ed to place a peripherally inserted central venous catheter (PICC). TECHNIQUE: The left arm was sterilely pr epared and sterile drapes applied. Ultrasound-guided puncture was made into the left basilic vein approximately 3 cm above the elbow crest. A wire was fed to the right atrium. A 4 [place] single-lumen power PICC Solo was cut to 53 cm and placed through a peel-away sheath to the right atrium. The tip rest s at the junction of the superior vena cava and right atrium in respiratory ins piration. The zero reji rests at the skin site. The line was then secured to the skin with StatLock system and flushed with saline. The catheter is radha dy for use PREPROCEDURE: Patient seen and evaluated . Allergies, [...] team members, residents, and fellows were discussed. Using ultrasound guidance to access vess el, patency was shown and after anesthetizing the skin with lidocaine th e left basilic vein was punctured successfully. A permanent image was crea sally and stored. For placement of this central venous acc ess, we followed catheter checklist and a standardized protocol. The position of the catheter tip was confirmed under fluoroscopic guidance, and a final image of the catheter position was obtained. Ready for use. CT injectable PowerPICC was placed. This device can be power injected up to a pressure of 300 PSI and flow rate of 5 m L/sec. IMPRESSION: Placement of a 53 cm, 4 [place] single-any men power PICC Solo from the left basilic vein to the right atrium. T he catheter is ready for use. NR Az Zhu M.D. IMG IR PROCEDURES (ABNORMAL) Basic Metabolic Panel (08/15/2020 6:08 AM COARSE WIRE DRAWER) P athologist Signature Potassium, S 4.5 3.6 - 5.2 08/15/2020 DTL mmol/L 7:18 AM COARSE WIRE DRAWER Sodium, S 133 (L) 135 - 145 08/15/2020 DTL mmol/L 7:18 AM COARSE WIRE DRAWER Chloride, S 99 98 - 107 08/15/2020 DTL mmol/L 7:18 AM COARSE WIRE DRAWER Bicarbonate, S 27 22 - 29 08/15/2020 DTL mmol/L 7:18 AM COARSE WIRE DRAWER Anion Gap 7 7 - 15 08/15/2020 DTL 7:18 AM COARSE WIRE DRAWER BUN (Blood Urea 13 8 - 24 08/15/2020 DTL Nitrogen), S mg/dL 7:18 AM COARSE WIRE DRAWER Creatinine 0.81 0.74 - 08/15/2020 DTL 1.35 mg/dL 7:18 AM COARSE WIRE DRAWER eGFR-Non >90 >=60 08/15/2020 DTL Black/ mL/min/BSA 7:18 AM COARSE WIRE DRAWER Czech Comment: ----ADDITIONAL INFORMATION---- Estimated GFR calculated using the 2009 CKD_EPI creatinine equation. eGFR-Black/ >90 >=60 mL/min/BSA 2019 7:18 AM COARSE WIRE DRAWER DTL Comment: ----ADDITIONAL INFORMATION---- Estimated GFR calculated using the 2009 CKD_EPI creatinine equation. Calcium, Total, S 8.1 (L) 8.6 - 10.0 mg/dL 08/15/2020 7:18 AM COARSE WIRE DRAWER DTL Glucose, S 89 70 - 140 mg/dL 08/15/2020 7:18 AM COARSE WIRE DRAWER D TL Specimen Anatomical Collection Method Collection Time Receive d Time (Source) Location / / Volume Laterality Blood (Blood, 08/15/2020 6:08 AM 08/15/20 20 6:56 Venous) COARSE WIRE DRAWER AM COARSE WIRE DRAWER Az Zhu M.D. LAB BLOOD ADD-ON Performing Organization Address City/State/ZIP Code Phon e Number [facility] - [address] [place] [address] [facility] [place] [address] [facility] 200 [facility] (ABNORMAL) CBC with Differential, Blood (08/15/2020 6:08 AM COARSE WIRE DRAWER) [facility] gist Method Time Signature Hemoglobin 10.1 (L) 13.2 - 08/15/2020 DTL 16.6 g/dL 6:53 AM COARSE WIRE DRAWER Hematocrit 31.1 (L) 38.3 - 08/15/2020 DTL 48.6 % 6:53 AM COARSE WIRE DRAWER Erythrocytes 3.56 (L) 4.35 - 08/15/2020 DTL 5.65 6:53 AM COARSE WIRE DRAWER x10(12)/L MCV 87.4 78.2 - 08/15/2020 DTL 97.9 fL 6:53 AM COARSE WIRE DRAWER RBC Distrib Width 14.7 (H) 11.8 - 08/15/2020 DTL 14.5 % 6:53 AM COARSE WIRE DRAWER Platelet Count 386 (H) 135 - 317 08/15/2020 DTL x10(9)/L 6:53 AM COARSE WIRE DRAWER Leukocytes 14.7 (H) 3.4 - 9.6 08/15/2020 DTL x10(9)/L 6:53 AM COARSE WIRE DRAWER Neutrophils 11.76 (H) 1.56 - 08/15/2020 DTL 6.45 6:53 AM COARSE WIRE DRAWER x10(9)/L Lymphocytes 1.25 0.95 - 08/15/2020 DTL 3.07 6:53 AM COARSE WIRE DRAWER x10(9)/L Monocytes 1.46 (H) 0.26 - 08/15/2020 DTL 0.81 6:53 AM COARSE WIRE DRAWER x10(9)/L Eosinophils 0.14 0.03 - 08/15/2020 DTL 0.48 6:53 AM COARSE WIRE DRAWER x10(9)/L Basophils 0.06 0.01 - 08/15/2020 DTL 0.08 6:53 AM COARSE WIRE DRAWER x10(9)/L Specimen Anatomical Collection Method Collection Time Receive d Time (Source) Location / / Volume Laterality Blood (Blood, 08/15/2020 6:08 AM 08/15/20 20 6:46 Venous) COARSE WIRE DRAWER AM COARSE WIRE DRAWER Az Zhu M.D. LAB BLOOD ADD-ON Performing Organization Address City/State/ZIP Code Phon e Number [facility] - [address] [place] [address] [facility] [place] [address] [facility] 200 [facility] (ABNORMAL) Hepatic Function Panel (08/15/2020 6:08 AM COARSE WIRE DRAWER) [facility] Method Time Signature Bilirubin, Total, S 2.3 (H) <=1.2 08/15/2020 DTL mg/dL 7:18 AM COARSE WIRE DRAWER Bilirubin, Direct, S 1.7 (H) 0.0 - 0.3 08/15/2020 DTL mg/dL 7:18 AM COARSE WIRE DRAWER Aspartate 45 8 - 48 08/15/2020 DTL Aminotransferase U/L 7:18 AM COARSE WIRE DRAWER (AST), S Alanine 54 7 - 55 08/15/2020 DTL Aminotransferase U/L 7:18 AM COARSE WIRE DRAWER (ALT), S Alkaline 173 (H) 40 - 129 08/15/2020 DTL Phosphatase, S U/L 7:18 AM COARSE WIRE DRAWER Albumin, S 2.4 (L) 3.5 - 5.0 08/15/2020 DTL g/dL 7:18 AM COARSE WIRE DRAWER Protein, Total, S 5.6 (L) 6.3 - 7.9 08/15/2020 DTL g/dL 7:18 AM COARSE WIRE DRAWER Specimen Anatomical Collection Method Collection Time Receive d Time (Source) Location / / Volume Laterality Blood (Blood, 08/15/2020 6:08 AM 08/15/20 6:56 Venous) COARSE WIRE DRAWER AM COARSE WIRE DRAWER Az Zhu M.D. LAB BLOOD ADD-ON Performing Organization Address City/State/ZIP Code Phon e Number [facility] - [address] [place], [place] [address] [facility] [place] [address] [facility] [address] [facility] (ABNORMAL) Hepatic Function Panel (08/14/2020 6:13 AM COARSE WIRE DRAWER) [facility] Method Time Signature Bilirubin, Total, S 2.9 (H) <=1.2 08/14/2020 DTL mg/dL 7:49 AM COARSE WIRE DRAWER Bilirubin, Direct, S 2.2 (H) 0.0 - 0.3 08/14/2020 DTL mg/dL 7:49 AM COARSE WIRE DRAWER Aspartate 46 8 - 48 08/14/2020 DTL Aminotransferase U/L 7:49 AM COARSE WIRE DRAWER (AST), S Alanine 58 (H) 7 - 55 08/14/2020 DTL Aminotransferase U/L 7:49 AM COARSE WIRE DRAWER (ALT), S Alkaline 163 (H) 40 - 129 08/14/2020 DTL Phosphatase, S U/L 7:49 AM COARSE WIRE DRAWER Albumin, S 2.4 (L) 3.5 - 5.0 08/14/2020 DTL g/dL 7:49 AM COARSE WIRE DRAWER Protein, Total, S 5.2 (L) 6.3 - 7.9 08/14/2020 DTL g/dL 7:49 AM COARSE WIRE DRAWER Specimen Anatomical Collection Method Collection Time Receive d Time (Source) Location / / Volume Laterality Blood (Blood, 08/14/2020 6:13 AM 08/14/20 7:32 Venous) COARSE WIRE DRAWER AM COARSE WIRE DRAWER Az Zhu M.D. LAB BLOOD ADD-ON Performing Organization Address City/State/ZIP Code Phon e Number [facility] - [address] [place], [place] [address] [facility] [place] [address] [facility] [address] [facility] (ABNORMAL) Basic Metabolic Panel (08/14/2020 6:13 AM COARSE WIRE DRAWER) P athologist Signature Potassium, S 3.9 3.6 - 5.2 08/14/2020 DTL mmol/L 7:49 AM COARSE WIRE DRAWER Sodium, S 134 (L) 135 - 145 08/14/2020 DTL mmol/L 7:49 AM COARSE WIRE DRAWER Chloride, S 98 98 - 107 08/14/2020 DTL mmol/L 7:49 AM COARSE WIRE DRAWER Bicarbonate, S 27 22 - 29 08/14/2020 DTL mmol/L 7:49 AM COARSE WIRE DRAWER Anion Gap 9 7 - 15 08/14/2020 DTL 7:49 AM COARSE WIRE DRAWER BUN (Blood Urea 15 8 - 24 08/14/2020 DTL Nitrogen), S mg/dL 7:49 AM COARSE WIRE DRAWER Creatinine 0.89 0.74 - 08/14/2020 DTL 1.35 mg/dL 7:49 AM COARSE WIRE DRAWER eGFR-Non >90 >=60 08/14/2020 DTL Black/ mL/min/BSA 7:49 AM COARSE WIRE DRAWER Czech Comment: ----ADDITIONAL INFORMATION---- Estimated GFR calculated using the 2009 CKD_EPI creatinine equation. eGFR-Black/ >90 >=60 mL/min/BSA 2019 7:49 AM COARSE WIRE DRAWER DTL Comment: ----ADDITIONAL INFORMATION---- Estimated GFR calculated using the 2009 CKD_EPI creatinine equation. Calcium, Total, S 7.8 (L) 8.6 - 10.0 mg/dL 08/14/2020 7:49 AM COARSE WIRE DRAWER DTL Glucose, S 83 70 - 140 mg/dL 08/14/2020 7:49 AM COARSE WIRE DRAWER D TL Specimen Anatomical Collection Method Collection Time Receive d Time (Source) Location / / Volume Laterality Blood (Blood, 08/14/2020 6:13 AM 08/14/20 7:32 Venous) COARSE WIRE DRAWER AM COARSE WIRE DRAWER Az Zhu M.D. LAB BLOOD ADD-ON Performing Organization Address City/State/ZIP Code Phon e Number [facility] - [address] [place], [place] [address] [facility] [place] [address] [facility] [address] (ABNORMAL) CBC with Differential, Blood (08/14/2020 6:13 AM COARSE WIRE DRAWER) [facility] gist Method Time Signature Hemoglobin 9.9 (L) 13.2 - 08/14/2020 DTL 16.6 g/dL 7:28 AM COARSE WIRE DRAWER Hematocrit 30.5 (L) 38.3 - 08/14/2020 DTL 48.6 % 7:28 AM COARSE WIRE DRAWER Erythrocytes 3.53 (L) 4.35 - 08/14/2020 DTL 5.65 7:28 AM COARSE WIRE DRAWER x10(12)/L MCV 86.4 78.2 - 08/14/2020 DTL 97.9 fL 7:28 AM COARSE WIRE DRAWER RBC Distrib Width 15.3 (H) 11.8 - 08/14/2020 DTL 14.5 % 7:28 AM COARSE WIRE DRAWER Platelet Count 395 (H) 135 - 317 08/14/2020 DTL x10(9)/L 7:28 AM COARSE WIRE DRAWER Leukocytes 16.2 (H) 3.4 - 9.6 08/14/2020 DTL x10(9)/L 7:28 AM COARSE WIRE DRAWER Neutrophils 13.22 (H) 1.56 - 08/14/2020 DTL 6.45 7:28 AM COARSE WIRE DRAWER x10(9)/L Lymphocytes 1.18 0.95 - 08/14/2020 DTL 3.07 7:28 AM COARSE WIRE DRAWER x10(9)/L Monocytes 1.60 (H) 0.26 - 08/14/2020 DTL 0.81 7:28 AM COARSE WIRE DRAWER x10(9)/L Eosinophils 0.15 0.03 - 08/14/2020 DTL 0.48 7:28 AM COARSE WIRE DRAWER x10(9)/L Basophils 0.07 0.01 - 08/14/2020 DTL 0.08 7:28 AM COARSE WIRE DRAWER x10(9)/L Specimen Anatomical Collection Method Collection Time Receive d Time (Source) Location / / Volume Laterality Blood (Blood, 08/14/2020 6:13 AM 08/14/20 7:15 Venous) COARSE WIRE DRAWER AM COARSE WIRE DRAWER Az Zhu M.D. LAB BLOOD ADD-ON Performing Organization Address City/[facility] Phon e Number [facility] - [address] [place], [place] [address] [place], [place] [id number] [place] [address] [address] [facility] Bacteria / Maxwell Culture, Blood #2 (08/13/2020 3:48 PM COARSE WIRE DRAWER) [facility] Method Time Signature Bacteria/Jane No growth 08/18/2020 DT da Culture, after 5 5:02 PM COARSE WIRE DRAWER Blood days of incubation. Specimen (Source) Anatomical Collection Method Collection Time Re ceived Time Location / / Volume Laterality Blood (Blood, 08/13/2020 3:48 08/13/2020 4:54 Peripheral Draw) PM COARSE WIRE DRAWER PM COARSE WIRE DRAWER Comment: Specimen Source Site: Blood Narrative [facility] - 08/18/2020 5:02 PM COARSE WIRE DRAWER Received Bactec aerobic and Bactec anaerobic bottles Specimen Information: Specimen ID: [id number] Specimen Source: Blood, Peripheral Draw Specimen Comment: Specimen Source Site: Blood Specimen Collection Start Date: 08/13/20 ??3:48 PM Specimen Received Date: 08/13/2020 ??4:5 4 PM Specimen ID: [id number] Specimen Source: Blood, Peripheral Draw Specimen Comment: Specimen Source Site: Blood Specimen Collection Start Date: 08/13/20 ??3:48 PM Specimen Received Date: 08/13/2020 ??4:5 4 PM Specimen ID: [id number] Specimen Source: Blood, Peripheral Draw Specimen Comment: Specimen Source Site: Blood Specimen Collection Start Date: 08/13/20 ??3:48 PM Specimen Received Date: 08/13/2020 ??4:5 4 PM Timothy Grimaldo M.D. LAB MICROBIOLOGY - GENERAL ORDERABLES Performing Organization Address City/[facility] Phon e Number [facility] - [address] [place], [place] [address] [place], [place] [id number] [place] [address] [address] [facility] Bacteria / Maxwell Culture, Blood #1 (08/13/2020 3:40 PM COARSE WIRE DRAWER) [facility] Method Time Signature Bacteria/Jane No growth 08/18/2020 DTL da Culture, after 5 5:02 PM COARSE WIRE DRAWER Blood days of incubation. Specimen (Source) Anatomical Collection Method Collection Time Re ceived Time Location / / Volume Laterality Blood (Blood, 08/13/2020 3:40 08/13/2020 4:53 Peripheral Draw) PM COARSE WIRE DRAWER PM COARSE WIRE DRAWER Comment: Specimen Source Site: Blood Narrative [facility] - [facility] - 08/18/2020 5:02 PM COARSE WIRE DRAWER Specimen Information: Specimen ID: [id number] Specimen Source: Blood, Peripheral Draw Specimen Comment: Specimen Source Site: Blood Specimen Collection Start Date: 08/13/20 ??3:40 PM Specimen Received Date: 08/13/2020 ??4:5 3 PM Specimen ID: [id number] Specimen Source: Blood, Peripheral Draw Specimen Comment: Specimen Source Site: Blood Specimen Collection Start Date: 08/13/20 ??3:40 PM Specimen Received Date: 08/13/2020 ??4:5 3 PM Specimen ID: [id number] Specimen Source: Blood, Peripheral Draw Specimen Comment: Specimen Source Site: Blood Specimen Collection Start Date: 08/13/20 ??3:40 PM Specimen Received Date: 08/13/2020 ??4:5 3 PM Timothy Grimaldo M.D. LAB MICROBIOLOGY - GENERAL ORDERABLES Performing Organization Address City/State/ZIP Code Phon e Number [facility] - [address] [place] [address] 05 [place] [address] [facility] 200 [facility] (ABNORMAL) Morphology Evaluation (Special Smear) (08/13/2020 6:41 AM COARSE WIRE DRAWER) Patholo gist Method Time Signature Neutrophilic Segs 78 (H) 50 - 75 % 08/13/2020 DHPM and Bands 9:14 AM COARSE WIRE DRAWER Lymphocytes 7 (L) 18 - 42 % 08/13/2020 DHPM 9:14 AM COARSE WIRE DRAWER Monocytes 10 2 - 11 % 08/13/2020 DHPM 9:14 AM COARSE WIRE DRAWER Eosinophils 1 1 - 3 % 08/13/2020 DHPM 9:14 AM COARSE WIRE DRAWER Metamyelocytes 1 (H) <1 % 08/13/2020 DHPM 9:14 AM COARSE WIRE DRAWER Myelocytes 3 (H) <0.5 % 08/13/2020 DHPM 9:14 AM COARSE WIRE DRAWER Manual Absolute 13.34 (H) 1.56 - 08/13/2020 [facility] Neutrophil Count 6.45 9:14 AM COARSE WIRE DRAWER x10(9)/L Comment: ----ADDITIONAL INFORMATION---- The manual absolute neutrophil count is derived from a manual differential count and therefore is not exactly comparable to the automated absolute hamzah trophil count. Specimen Anatomical Collection Method Collection Time Receive d Time (Source) Location / / Volume Laterality Blood 08/13/2020 6:41 AM 0 7:19 COARSE WIRE DRAWER AM COARSE WIRE DRAWER Anita Driver M.D. LAB BLOOD ADD-ON Performing Organization Address City/State/ZIP Code Phon e Number [facility] - [address] [place] [address] 05 [place] [address] [facility] [address] [facility] (ABNORMAL) Basic Metabolic Panel (08/13/2020 6:41 AM COARSE WIRE DRAWER) athologist Signature Potassium, S 4.3 3.6 - 5.2 08/13/2020 DTL mmol/L 7:48 AM COARSE WIRE DRAWER Sodium, S 132 (L) 135 - 145 08/13/2020 DTL mmol/L 7:48 AM COARSE WIRE DRAWER Chloride, S 98 98 - 107 08/13/2020 DTL mmol/L 7:48 AM COARSE WIRE DRAWER Bicarbonate, S 26 22 - 29 08/13/2020 DTL mmol/L 7:48 AM COARSE WIRE DRAWER Anion Gap 8 7 - 15 08/13/2020 DTL 7:48 AM COARSE WIRE DRAWER BUN (Blood Urea 17 8 - 24 08/13/2020 DTL Nitrogen), S mg/dL 7:48 AM COARSE WIRE DRAWER Creatinine 0.89 0.74 - 08/13/2020 DTL 1.35 mg/dL 7:48 AM COARSE WIRE DRAWER eGFR-Non >90 >=60 08/13/2020 DTL Black/ mL/min/BSA 7:48 AM COARSE WIRE DRAWER Czech Comment: ----ADDITIONAL INFORMATION---- Estimated GFR calculated using the 2009 CKD_EPI creatinine equation. eGFR-Black/ >90 >=60 mL/min/BSA 2019 7:48 AM COARSE WIRE DRAWER DTL Comment: ----ADDITIONAL INFORMATION---- Estimated GFR calculated using the 2009 CKD_EPI creatinine equation. Calcium, Total, S 8.2 (L) 8.6 - 10.0 mg/dL 08/13/2020 7:48 AM COARSE WIRE DRAWER DTL Glucose, S 86 70 - 140 mg/dL 08/13/2020 7:48 AM COARSE WIRE DRAWER D TL Specimen Anatomical Collection Method Collection Time Receive d Time (Source) Location / / Volume Laterality Blood (Blood, 08/13/2020 6:41 AM 08/13/20 20 7:33 Venous) COARSE WIRE DRAWER AM COARSE WIRE DRAWER Anita Driver M.D. LAB BLOOD ADD-ON Performing Organization Address City/State/[facility] Code Phon e Number [facility] - [address] [place], [place] [address] [facility] [place] [address] [facility] [address] (ABNORMAL) CBC with Differential, Blood (08/13/2020 6:41 AM COARSE WIRE DRAWER) [facility] gist Method Time Signature Hemoglobin 9.9 (L) 13.2 - 08/13/2020 DTL 16.6 g/dL 7:32 AM COARSE WIRE DRAWER Hematocrit 29.1 (L) 38.3 - 08/13/2020 DTL 48.6 % 7:32 AM COARSE WIRE DRAWER Erythrocytes 3.44 (L) 4.35 - 08/13/2020 DTL 5.65 7:32 AM COARSE WIRE DRAWER x10(12)/L MCV 84.6 78.2 - 08/13/2020 DTL 97.9 fL 7:32 AM COARSE WIRE DRAWER RBC Distrib 15.3 (H) 11.8 - 08/13/2020 DTL Width 14.5 % 7:32 AM COARSE WIRE DRAWER Platelet Count 374 (H) 135 - 317 08/13/2020 DTL x10(9)/L 7:32 AM COARSE WIRE DRAWER Leukocytes 17.1 (H) 3.4 - 9.6 08/13/2020 DTL x10(9)/L 7:32 AM COARSE WIRE DRAWER Neutrophils SeeComment 1.56 - 08/13/2020 DTL 6.45 9:14 AM COARSE WIRE DRAWER x10(9)/L Comment: Auto-diff results not valid. Se e manual differential. Specimen Anatomical Collection Method Collection Time Receive d Time (Source) Location / / Volume Laterality Blood (Blood, 08/13/2020 6:41 AM 08/13/20 20 7:19 Venous) COARSE WIRE DRAWER AM COARSE WIRE DRAWER Anita Driver M.D. LAB BLOOD ADD-ON Performing Organization Address City/[facility] Phon e Number [facility] - [address] (ABNORMAL) Hepatic Function Panel (08/13/2020 6:41 AM COARSE WIRE DRAWER) [facility] gist Method Time Signature Bilirubin, Total, S 3.5 (H) <=1.2 08/13/2020 DTL mg/dL 7:48 AM COARSE WIRE DRAWER Bilirubin, Direct, S 2.9 (H) 0.0 - 0.3 08/13/2020 DTL mg/dL 7:48 AM COARSE WIRE DRAWER Aspartate 60 (H) 8 - 48 08/13/2020 DTL Aminotransferase U/L 7:48 AM COARSE WIRE DRAWER (AST), S Alanine 67 (H) 7 - 55 08/13/2020 DTL Aminotransferase U/L 7:48 AM COARSE WIRE DRAWER (ALT), S Alkaline 180 (H) 40 - 129 08/13/2020 DTL Phosphatase, S U/L 7:48 AM COARSE WIRE DRAWER Albumin, S 2.4 (L) 3.5 - 5.0 08/13/2020 DTL g/dL 7:48 AM COARSE WIRE DRAWER Protein, Total, S 5.2 (L) 6.3 - 7.9 08/13/2020 DTL g/dL 7:48 AM COARSE WIRE DRAWER Specimen Anatomical Collection Method Collection Time Receive d Time (Source) Location / / Volume Laterality Blood (Blood, 08/13/2020 6:41 AM 08/13/20 20 7:33 Venous) COARSE WIRE DRAWER AM COARSE WIRE DRAWER Timothy Grimaldo M.D. LAB BLOOD ADD-ON Performing Organization Address [facility] Phon e Number [facility] - [address] Microscopic Manual (08/12/2020 4:43 PM COARSE WIRE DRAWER) athologist Signature Microscopy Normal 08/12/2020 9:22 [place] PM COARSE WIRE DRAWER RBC <3 <3 /hpf 08/12/2020 9:22 [place] PM COARSE WIRE DRAWER WBC 1-3 /hpf 08/12/2020 9:22 [place] PM COARSE WIRE DRAWER Comment: ----REFERENCE VALUE---- 1-3 ??(Males) 1-10 (Females) Specimen Anatomical Collection Method Collection Time Receive d Time (Source) Location / / Volume Laterality Urine 08/12/2020 4:43 PM 0 6:35 COARSE WIRE DRAWER PM COARSE WIRE DRAWER Tobias Garcia M.D., M.S. LAB URINE ORDERABLES Performing Organization Address City/State/ZIP Code Phon e Number [facility] - [address] [place] [address] [facility] [place] [address] [facility] [address] (ABNORMAL) Urinalysis with Microscopic: Urine, Midstream (08/12/2020 4:43 PM COARSE WIRE DRAWER) [facility] gist Method Time Signature Source Midstream 08/12/2020 SH[place]ET[place] 6:35 PM COARSE WIRE DRAWER Appearance Normal Normal 08/12/2020 [place] 8:26 PM COARSE WIRE DRAWER Osmolality, U 687 150 - 1150 08/12/2020 [place] mOsm/kg 7:57 PM COARSE WIRE DRAWER pH, U 6.1 4.5 - 8.0 08/12/2020 [place] 7:57 PM COARSE WIRE DRAWER Comment: ----ADDITIONAL INFORMATION---- This test was developed and its performa nce characteristics determined by [facility] in a manner co nsistent with CLIA requirements. This test has not bee n cleared or approved by the U.S. Food and Drug Admin istration. Glucose 10 0 - 15 mg/dL 08/12/2020 8:26 PM COARSE WIRE DRAWER [place] Protein, U 60 (H) <26 mg/dL 08/12/2020 8:26 PM COARSE WIRE DRAWER [place] Comment: ----ADDITIONAL INFORMATION---- On 03/07/2017 the total protein assay me thod changed resulting in approximately a 15% increase in prote in values. Protein/Osmolality 0.87 (H) <0.42 Ratio 08/12/2020 8:26 PM COARSE WIRE DRAWER [place] Comment: ----ADDITIONAL INFORMATION---- On 03/07/2017 the total protein assay me thod changed resulting in approximately a 15% increase in prote in values. Predicted 24 Hr Protein 828 mg/24 h 08/12/2020 8:26 PM COARSE WIRE DRAWER [place]ETA Predicted Range 263-2608 mg/24 h 08/12/2020 8:26 PM COARSE WIRE DRAWER R CRISTI Hemoglobin, QL Negative Negative 08/12/2020 9:22 PM COARSE WIRE DRAWER RE NA Specimen Anatomical Collection Method Collection Time Receive d Time (Source) Location / / Volume Laterality Urine (Urine, 08/12/2020 4:43 PM 08/12/20 20 6:35 Midstream) COARSE WIRE DRAWER PM COARSE WIRE DRAWER Tobias Garcia M.D., M.S. LAB URINE ORDERABLES Performing Organization Address [facility] Phon e Number [facility] - [address] [place], [place] [address] [facility] [place] [address] Laboratories-[address] Bacterial Culture, Aerobic + Susc, Urine (08/12/2020 4:43 PM COARSE WIRE DRAWER) Patholo gist Method Time Signature Urine Culture No growth 08/14/2020 DTL after 1 day 7:17 AM COARSE WIRE DRAWER of incubation. Specimen Anatomical Collection Method Collection Time Receive d Time (Source) Location / / Volume Laterality Urine (Urine, 08/12/2020 4:43 PM 08/12/20 7:16 Midstream) COARSE WIRE DRAWER PM COARSE WIRE DRAWER Comment: Specimen Source Site: Urine Tobias Garcia M.D., M.S. LAB MICROBIOLOGY - GENERAL O RDERABLES Performing Organization Address City/[facility] Phon e Number [facility] - [address] [place], [place] [address] [facility] [place] [address] Laboratories-[address] US Gallbladder and or Biliary Ducts (08/12/2020 2:10 PM COARSE WIRE DRAWER) Anatomical Region Laterality Modality Abdomen, Ultrasound RST LOS, Ultrasound ARZ LOS, Ultrasound FLA N/A Ultrasound LOS Specimen (Source) Anatomical Collection Method Collection Time Re ceived Time Location / / Volume Laterality 08/12/2020 2:10 PM COARSE WIRE DRAWER Impressions 08/12/2020 2:16 PM COARSE WIRE DRAWER No biliary obstruction. Limited ductal evaluation due to poor acoustic windows and pneumobilia. Narrative 08/12/2020 2:16 PM COARSE WIRE DRAWER EXAM: US GALLBLADDER AND OR BILIARY DUCTS COMPARISON: CT 08/12/2020 FINDINGS: Gallbladder: Filled with gas which obscu res the lumen. Wall where seen is minimally thickened. No focal tenderness . No pericholecystic fluid. Intrahepatic ducts: Not dilated. Pneumob jose. Limited window to the liver. Intervening bowel precludes evaluation o f the left lobe. Background liver were seen appears coarsened. Common duct: Obscured. Aorta: Normal caliber. Procedure Note Farrah Tripp M.D. - 08/12/2020 EXAM: US GALLBLADDER AND OR BILIARY DUCT S COMPARISON: CT 08/12/2020 FINDINGS: Gallbladder: Filled with gas which obscu res the lumen. Wall where seen is minimally thickened. No focal tenderness . No pericholecystic fluid. Intrahepatic ducts: Not dilated. Pneumob jose. Limited window to the liver. Intervening bowel precludes evaluation o f the left lobe. Background liver were seen appears coarsened. Common duct: Obscured. Aorta: Normal caliber. IMPRESSION: No biliary obstruction. Limited ductal e valuation due to poor acoustic windows and pneumobilia. Tobias Garcia M.D., M.S. IMG US PROCEDURES DX Chest AP or PA and Lateral 2 Views (08/12/2020 12:15 PM COARSE WIRE DRAWER) Anatomical Region Laterality Modality Chest, Thoracic RST LOS, Thoracic ARZ LOS, Thoracic N/A Digital Radiography FLA LOS Specimen (Source) Anatomical Collection Method Collection Time Re ceived Time Location / / Volume Laterality 08/12/2020 12:30 PM COARSE WIRE DRAWER Impressions 08/12/2020 12:32 PM COARSE WIRE DRAWER No radiographic comparison. A small left pleural effusion is present with associated atelectasis in t he left lower lung. Low lung volumes with mild atelectasis in the right lower lung. No areas of consolidation or airspace opacity. Common bile duct stent . Narrative 08/12/2020 12:32 PM COARSE WIRE DRAWER EXAM: ??DX CHEST AP OR PA AND LATERAL 2 VIEWS Procedure Note Charanjit Tapia M.D. - 08/12/2020Form atting of this note might be different from the original. EXAM: DX CHEST AP OR PA AND LATERAL 2 EWS IMPRESSION: No radiographic comparison. A small left pleural effusion is present with associated atelectasis in t he left lower lung. Low lung volumes with mild atelectasis in the right lower lung. No areas of consolidation or airspace opacity. Common bile duct stent . Tobias Garcia M.D., M.S. IMG DIAGNOSTIC IMAGING PROCE DURES APTT (Activated Partial Thromboplastin Time) (08/12/2020 11:55 AM COARSE WIRE DRAWER) P athologist Signature Activated 28 25 - 37 sec 08/12/2020 STMA Partial 12:22 PM COARSE WIRE DRAWER Thrombopl Time, P Specimen Anatomical Collection Method Collection Time Receive d Time (Source) Location / / Volume Laterality Blood (Blood, 08/12/2020 11:55 08/12/2020 Venous) AM COARSE WIRE DRAWER 12:12 PM COARSE WIRE DRAWER Tobias Garcia M.D., M.S. LAB BLOOD ADD-ON Performing Organization Address City/State/ZIP Code Phon e Number [facility] - [facility] [place] [address] [place], [place] [address] [place] [address] Laboratories-[facility] [address] (ABNORMAL) Bacteria / Maxwell Culture, Blood #2 (08/12/2020 10:38 AM COARSE WIRE DRAWER) Patholo gist Method Time Signature Bacteria/Cand STREPTOCOCCUS ANGINOSUS 08/15/2020 D TL trev Culture, Growth after 23 Hours 11:53 AM Blood (A) COARSE WIRE DRAWER Comment: 2 of 3 Bottles, Susceptibilities performed on another sp ecimen [id number] Specimen (Source) Anatomical Collection Method Collection Time Re ceived Time Location / / Volume Laterality Blood (Blood, 08/12/2020 10:38 08/12/2020 Peripheral Draw) AM COARSE WIRE DRAWER 11:38 AM CS T Comment: Specimen Source Site: Blood Narrative [facility] - [facility] - 08/15/2020 11:53 AM COARSE WIRE DRAWER Specimen Information: Specimen ID: [id number] Specimen Source: Blood, Peripheral Draw Specimen Comment: Specimen Source Site: Blood Specimen Collection Start Date: 08/12/20 10:38 AM Specimen Received Date: 08/12/2020 11:38 AM Specimen ID: [id number] Specimen Source: Blood, Peripheral Draw Specimen Comment: Specimen Source Site: Blood Specimen Collection Start Date: 08/12/20 10:38 AM Specimen Received Date: 08/12/2020 11:38 AM Specimen ID: [id number] Specimen Source: Blood, Peripheral Draw Specimen Comment: Specimen Source Site: Blood Specimen Collection Start Date: 08/12/20 10:38 AM Specimen Received Date: 08/12/2020 11:38 AM Tobias Garcia M.D., M.S. LAB MICROBIOLOGY - GENERAL O RDERABLES Performing Organization Address City/[facility]/[place]IP [facility] Number [facility] - [id number] [place] [address] Lipase (08/12/2020 10:21 AM COARSE WIRE DRAWER) P athologist Signature Lipase, S 13 13 - 60 U/L 08/12/2020 DTL 11:46 AM COARSE WIRE DRAWER Specimen Anatomical Collection Method Collection Time Receive d Time (Source) Location / / Volume Laterality Blood (Blood, 08/12/2020 10:21 08/12/2020 Venous) AM COARSE WIRE DRAWER 11:33 AM COARSE WIRE DRAWER Tobias Garcia M.D., M.S. LAB BLOOD ADD-ON Performing Organization Address City/[facility] Phon e Number [facility] - [id number] [place] [address] (ABNORMAL) Prothrombin Time (PT) (08/12/2020 10:21 AM COARSE WIRE DRAWER) Patholo gist Method Time Signature Prothrombin 14.8 (H) 9.4 - 12.5 08/12/2020 DTL Time, P sec 12:09 PM COARSE WIRE DRAWER INR 1.3 0.9 - 1.1 08/12/2020 DTL 12:09 PM COARSE WIRE DRAWER Comment: ----ADDITIONAL INFORMATION---- Standard intensity warfarin therapeutic range: 2.0 to 3.0 ?? High intensity warfarin therapeutic rang e: 2.5 to 3.5 Specimen Anatomical Collection Method Collection Time Receive d Time (Source) Location / / Volume Laterality Blood (Blood, 08/12/2020 10:21 08/12/2020 Venous) AM COARSE WIRE DRAWER 11:19 AM COARSE WIRE DRAWER Tobias Garcia M.D., M.S. LAB BLOOD ADD-ON Performing Organization Address City/[facility] Code Phon e Number [facility] - [address] [place], [place] [address] [place], [place] [phone] [place] [address] (ABNORMAL) Comprehensive Metabolic Panel (08/12/2020 10:21 AM COARSE WIRE DRAWER) P athologist Signature Potassium, S 4.1 3.6 - 5.2 08/12/2020 DTL mmol/L 11:48 AM COARSE WIRE DRAWER Sodium, S 135 135 - 145 08/12/2020 DTL mmol/L 11:48 AM COARSE WIRE DRAWER Chloride, S 98 98 - 107 08/12/2020 DTL mmol/L 11:48 AM COARSE WIRE DRAWER Bicarbonate, S 27 22 - 29 08/12/2020 DTL mmol/L 11:48 AM COARSE WIRE DRAWER Anion Gap 10 7 - 15 08/12/2020 DTL 11:48 AM COARSE WIRE DRAWER BUN (Blood Urea 15 8 - 24 08/12/2020 DTL Nitrogen), S mg/dL 11:48 AM COARSE WIRE DRAWER Creatinine 0.82 0.74 - 08/12/2020 DTL 1.35 mg/dL 11:48 AM COARSE WIRE DRAWER eGFR-Non >90 >=60 08/12/2020 DTL Black/ mL/min/BSA 11:48 AM COARSE WIRE DRAWER Czech Comment: ----ADDITIONAL INFORMATION---- Estimated GFR calculated using the 2009 CKD_EPI creatinine equation. eGFR-Black/ >90 >=60 mL/min/BSA 2019 11:48 AM COARSE WIRE DRAWER DTL Comment: ----ADDITIONAL INFORMATION---- Estimated GFR calculated using the 2009 CKD_EPI creatinine equation. Calcium, Total, S 8.0 (L) 8.6 - 10.0 mg/dL 08/12/2020 11:4 8 AM COARSE WIRE DRAWER DTL Glucose, S 81 70 - 140 mg/dL 08/12/2020 11:48 AM COARSE WIRE DRAWER DTL Protein, Total, S 5.9 (L) 6.3 - 7.9 g/dL 08/12/2020 11:48 AM COARSE WIRE DRAWER DTL Albumin, S 2.7 (L) 3.5 - 5.0 g/dL 08/12/2020 11:48 AM COARSE WIRE DRAWER DTL Aspartate Aminotransferase 69 (H) 8 - 48 U/L 08/12/2020 1 1:48 AM COARSE WIRE DRAWER DTL (AST), S Alkaline Phosphatase, S 202 (H) 40 - 129 U/L 08/12/2020 11 :48 AM COARSE WIRE DRAWER DTL Alanine Aminotransferase 81 (H) 7 - 55 U/L 08/12/2020 11: 48 AM COARSE WIRE DRAWER DTL (ALT), S Bilirubin, Total, S 4.5 (H) <=1.2 mg/dL 08/12/2020 11:48 A M COARSE WIRE DRAWER DTL Specimen Anatomical Collection Method Collection Time Receive d Time (Source) Location / / Volume Laterality Blood (Blood, 08/12/2020 10:21 08/12/2020 Venous) AM COARSE WIRE DRAWER 11:30 AM COARSE WIRE DRAWER Tobias Garcia M.D., M.S. LAB BLOOD ADD-ON Performing Organization Address City/State/ZIP Code Phon e Number [facility] - [address] [place], [place] [address] [facility] [place] [address] Laboratories-[facility] [address] (ABNORMAL) CBC with Differential, Blood (08/12/2020 10:21 AM COARSE WIRE DRAWER) [facility] gist Method Time Signature Hemoglobin 11.0 (L) 13.2 - 08/12/2020 DTL 16.6 g/dL 11:25 AM COARSE WIRE DRAWER Hematocrit 34.1 (L) 38.3 - 08/12/2020 DTL 48.6 % 11:25 AM COARSE WIRE DRAWER Erythrocytes 3.93 (L) 4.35 - 08/12/2020 DTL 5.65 11:25 AM COARSE WIRE DRAWER x10(12)/L MCV 86.8 78.2 - 08/12/2020 DTL 97.9 fL 11:25 AM COARSE WIRE DRAWER RBC Distrib Width 15.9 (H) 11.8 - 08/12/2020 DTL 14.5 % 11:25 AM COARSE WIRE DRAWER Platelet Count 368 (H) 135 - 317 08/12/2020 DTL x10(9)/L 11:25 AM COARSE WIRE DRAWER Leukocytes 21.2 (H) 3.4 - 9.6 08/12/2020 DTL x10(9)/L 11:25 AM COARSE WIRE DRAWER Neutrophils 18.54 (H) 1.56 - 08/12/2020 DTL 6.45 11:25 AM COARSE WIRE DRAWER x10(9)/L Lymphocytes 0.83 (L) 0.95 - 08/12/2020 DTL 3.07 11:25 AM COARSE WIRE DRAWER x10(9)/L Monocytes 1.78 (H) 0.26 - 08/12/2020 DTL 0.81 11:25 AM COARSE WIRE DRAWER x10(9)/L Eosinophils 0.04 0.03 - 08/12/2020 DTL 0.48 11:25 AM COARSE WIRE DRAWER x10(9)/L Basophils 0.04 0.01 - 08/12/2020 DTL 0.08 11:25 AM COARSE WIRE DRAWER x10(9)/L Specimen Anatomical Collection Method Collection Time Receive d Time (Source) Location / / Volume Laterality Blood (Blood, 08/12/2020 10:21 08/12/2020 Venous) AM COARSE WIRE DRAWER 11:16 AM COARSE WIRE DRAWER Tobias Garcia M.D., M.S. LAB BLOOD ADD-ON Performing Organization Address City/[facility]/[place]IP [facility] [place] [place] Number [address] Magnesium (08/12/2020 10:21 AM COARSE WIRE DRAWER) P athologist Signature Magnesium, S 2.2 1.7 - 2.3 08/12/2020 DTL mg/dL 11:48 AM COARSE WIRE DRAWER Specimen Anatomical Collection Method Collection Time Receive d Time (Source) Location / / Volume Laterality Blood (Blood, 08/12/2020 10:21 08/12/2020 Venous) AM COARSE WIRE DRAWER 11:30 AM COARSE WIRE DRAWER Tobias Garcia M.D., M.S. LAB BLOOD ADD-ON Performing Organization Address City/[facility] Phon e Number [address] (ABNORMAL) Bacteria / Maxwell Culture, Blood #1 (08/12/2020 10:20 AM COARSE WIRE DRAWER) Patholo gist Method Time Signature Bacteria/Cand STREPTOCOCCUS ANGINOSUS 08/15/2020 D TL trev Culture, Growth after 22 Hours 11:54 AM Blood (A) COARSE WIRE DRAWER Comment: 1 of 3 Bottles, Critical Result. Specimen (Source) Anatomical Collection Method Collection Time Re ceived Time Location / / Volume Laterality Blood (Blood, 08/12/2020 10:20 08/12/2020 Peripheral Draw) AM COARSE WIRE DRAWER 11:37 AM CS T Comment: Specimen Source Site: Blood Narrative [facility] - 08/15/2020 11:54 AM COARSE WIRE DRAWER Specimen Information: Specimen ID: [id number] Specimen Source: Blood, Peripheral Draw Specimen Comment: Specimen Source Site: Blood Specimen Collection Start Date: 08/12/20 10:20 AM Specimen Received Date: 08/12/2020 11:37 AM Specimen ID: [id number] Specimen Source: Blood, Peripheral Draw Specimen Comment: Specimen Source Site: Blood Specimen Collection Start Date: 08/12/20 10:20 AM Specimen Received Date: 08/12/2020 11:37 AM Specimen ID: [id number] Specimen Source: Blood, Peripheral Draw Specimen Comment: Specimen Source Site: Blood Specimen Collection Start Date: 08/12/20 10:20 AM Specimen Received Date: 08/12/2020 11:37 AM Organism Antibiotic Method Susceptibility S anginosus Penicillin SUSCEPTIBILITY, SHANEL (MCG/ML) <=0 .06 mcg/mL: Susceptible S anginosus Vancomycin SUSCEPTIBILITY, SHANEL (MCG/ML) <=1 mcg/mL: Susceptible S anginosus Ceftriaxone SUSCEPTIBILITY, SHANEL (MCG/ML) <=0 .5 mcg/mL: Susceptible S anginosus Erythromycin SUSCEPTIBILITY, SHANEL (MCG/ML) <=0 .25 mcg/mL: Susceptible S anginosus Cefepime SUSCEPTIBILITY, SHANEL (MCG/ML) <=0 .5 mcg/mL: Susceptible S anginosus Meropenem SUSCEPTIBILITY, SHANEL (MCG/ML) <=0 .25 mcg/mL: Susceptible S anginosus Levofloxacin SUSCEPTIBILITY, SHANEL (MCG/ML) <=2 mcg/mL: Susceptible Tobias Garcia M.D., M.S. LAB MICROBIOLOGY - GENERAL O RDERABLES Performing Organization Address City/State/ZIP Code Phon e Number [facility] - [address] [place] [address] [facility] [place] [address] Laboratories-[facility] [address] Interpretation of Outside CT Abdomen and or Pelvis (08/12/2020 10:19 AM COARSE WIRE DRAWER) Anatomical Region Laterality Modality Abdomen, Pelvis, Abdominal RST LOS, Abdominal ARZ LOS, N/A Computed Tomography Abdominal FLA LOS, Other Specimen (Source) Anatomical Collection Method Collection Time Re ceived Time Location / / Volume Laterality 08/12/2020 10:28 AM COARSE WIRE DRAWER Impressions 08/12/2020 11:04 AM COARSE WIRE DRAWER 1. Extensive soft tissue thickening and edema [...] hour on 08/12/2020. Narrative 08/12/2020 11:04 AM COARSE WIRE DRAWER EXAM: ??INTERPRETATION OF OUTSIDE CT CHEST, INTERPRETATION [...] tissue thickening. Much of this has some regulatory internship al fat density material. There is some [...] tissue thickening. Much of this has some regulatory internship al fat density material. There is some [...] at 11 05 hour on 08/12/2020. Tobias Gacria M.D., M.S. IMG CT PROCEDURES Interpretation of Outside CT Chest (08/12/2020 10:19 AM COARSE WIRE DRAWER) Anatomical Region Laterality Modality Chest, Thoracic RST LOS, Thoracic ARZ LOS, Thoracic N/A Computed Tomography FLA LOS, Other, Body Specimen (Source) Anatomical Collection Method Collection Time Re ceived Time Location / / Volume Laterality 08/12/2020 10:28 AM COARSE WIRE DRAWER Impressions 08/12/2020 11:04 AM COARSE WIRE DRAWER 1. Extensive soft tissue thickening and edema [...] hour on 08/12/2020. Narrative 08/12/2020 11:04 AM COARSE WIRE DRAWER EXAM: ??INTERPRETATION OF OUTSIDE CT CHEST, INTERPRETATION [...] tissue thickening. Much of this has some regulatory internship al fat density material. There is some [...] tissue thickening. Much of this has some regulatory internship al fat density material. There is some [...] lower lobe atelectasis. Findings discussed with Dr Prasons at 11 05 hour on 08/12/2020. Tobias Garcia M.D., M.S. IMG CT PROCEDURES (ABNORMAL) Amylase, Total (08/12/2020 10:05 AM COARSE WIRE DRAWER) athologist Signature Amylase, Total, 24 (L) 26 - 102 08/12/2020 DTL S U/L 12:43 PM COARSE WIRE DRAWER Specimen Anatomical Collection Method Collection Time Receive d Time (Source) Location / / Volume Laterality Blood (Blood, 08/12/2020 10:05 08/12/2020 Venous) AM COARSE WIRE DRAWER 12:13 PM COARSE WIRE DRAWER Anita Driver M.D. LAB BLOOD ADD-ON Performing Organization Address City/State/ZIP Code Phon e Number [facility] - [address] [place], [place] [address] [facility] [place] [address] Laboratories-[facility] [address] ECG 12 Lead (08/12/2020 9:51 AM COARSE WIRE DRAWER) athologist Signature Ventricular Rate 87 BPM MUSE ECG/Min PA Interval 160 ms MUSE QRSD Interval 104 ms MUSE QT Interval 388 ms MUSE QTC Interval 466 ms MUSE P [place] 36 degrees MUSE R [place] 8 degrees MUSE T Wave [place] 11 degrees MUSE Specimen Anatomical Collection Method Collection Time Receive d Time (Source) Location / / Volume Laterality 08/12/2020 9:51 AM 0 COARSE WIRE DRAWER 10:32 AM COARSE WIRE DRAWER Impressions MUSE - 08/12/2020 10:32 AM COARSE WIRE DRAWER Normal sinus rhythm Nonspecific T wave abnormality No previous ECGs available Reviewed by HAROON Lawrence Narrative This result has an attachment that is no t available. Procedure Note Atul Higuera Jr., M.D. - 08/12/2020For matting of this note might be different from the original. IMPRESSION: Normal sinus rhythm Nonspecific T wave abnormality No previous ECGs available Reviewed by HAROON Lawrence Tobias Garcia M.D., M.S. ECG ORDERABLES Performing Organization Address City/[facility]/ZIP Code Phon e Number MUSE MUSE NA Influenza A/B, SARS CoV-2, PCR, Rapid, Varies (08/12/2020 6:55 AM COARSE WIRE DRAWER) [facility] gist Method Time Signature SARS CoV-2, Undetected Undetected 08/12/2020 STMA PCR, Rapid, V 8:33 AM COARSE WIRE DRAWER Specimen Anatomical Collection Method Collection Time Receive d Time (Source) Location / / Volume Laterality Varies 08/12/2020 6:55 AM 0 7:59 COARSE WIRE DRAWER AM COARSE WIRE DRAWER Trell Borjas M.D., M.P.H. LAB MICROBIOLOGY - GENERAL O RDERABLES Performing Organization Address City/State/ZIP Code Phon e Number [facility] - [address] [place], [place] [address] [place] [address] [facility] [address] documented in this encounter Visit Diagnoses Diagnosis Abdominal Pain - Primary Bacteremia documented in this encounter Administered Medications Inactive Administered Medications - up to 3 most recent administrations Medication Order MAR Action Action Date Dose Rate Site acetaminophen tablet 500 mg Given 08/15/2020 5:00 PM COARSE WIRE DRAWER 500 mg (TYLENOL) 500 mg, oral, Every 6 hours, First dose on Mon08/12/20 at 2300 Given 08/15/2020 11:13 AM COARSE WIRE DRAWER 500 mg Given 08/15/2020 4:39 AM COARSE WIRE DRAWER 500 mg cefTRIAXone in dextrose (iso-osm) IVPB New Bag 08/14/2020 5:08 PM COARSE WIRE DRAWER 2 g 200 mL/hr 2 g (ROCEPHIN) 2 g, intravenous, at 200 mL/hr, Administer over 15 Minutes, Every 24 hours, First dose on Mon08/14/20 at 1600, premix bag, Drug Monitoring Program: Pharmacist to adjust medication dosing based on indication and drug clearance factors., Indications: Intra-abdominal infection, community acquired cefTRIAXone in dextrose (iso-osm) IVPB New Bag 08/15/2020 4:38 PM COARSE WIRE DRAWER 2 g 200 mL/hr 2 g (ROCEPHIN) 2 g, intravenous, at 200 mL/hr, Administer over 15 Minutes, Every 24 hours, First dose (after last modification) on Mon08/15/20 at 1400, premix bag, Drug Monitoring Program: Pharmacist to adjust medication dosing based on indication and drug clearance factors., Indications: Intra-abdominal infection, community acquired D5W infusion 10-250 mL/hr, intravenous, As needed, Medications Inco mpatible with 0.9% NaCL, Starting on Mon08/12/20 at 0647, Infuse at the same ra te as the piggyback until tubing clears or up to a volume of 20 mL pre and post infusion for medications incompatible with 0.9% NaCL. Use 100 mL bag then disca rd. enoxaparin injection 40 mg Given 08/12/2020 10:52 AM COARSE WIRE DRAWER 40 mg Right Lower Abdomen (LOVENOX) 40 mg, subcutaneous, Every 24 hours scheduled, First dose on Mon08/12/20 at 1000 enoxaparin injection 40 mg Given 08/12/2020 1:22 PM COARSE WIRE DRAWER 40 mg Left Lower Abdomen (LOVENOX) 40 mg, subcutaneous, Once, On Mon08/12/20 at 1245, For 1 dose enoxaparin injection 80 mg Given 08/12/2020 9:46 PM COARSE WIRE DRAWER 80 mg Right Upper Arm (LOVENOX) (Back) 80 mg (rounded from 82.4 mg = 1 mg/kg ? 82.4 kg Dosing weight), subcutaneous, 2 times daily, First dose on Mon08/12/20 at 1230, For 2 doses enoxaparin injection 80 mg Given 08/15/2020 9:17 AM COARSE WIRE DRAWER 80 mg Right Upper Arm (LOVENOX) (Back) 80 mg, subcutaneous, 2 times daily, First dose (after last modification) on Sandra 08/13/20 at 0945 Given 08/14/2020 9:15 PM COARSE WIRE DRAWER 80 mg Right Upper Arm (Back) Given 08/14/2020 10:01 AM COARSE WIRE DRAWER 80 mg Left Upper Arm (Back) lactated ringers New Bag 08/12/2020 12:38 PM COARSE WIRE DRAWER 125 mL/hr 125 mL/hr 125 mL/hr, intravenous, Continuous, Starting on Mon08/12/20 at 1100, For 4 hours lidocaine 10 mg/mL (1 %) injection (XYLO ASTRID) Given 08/15/2020 2:57 PM COARSE WIRE DRAWER 5 mL Code/trauma/sedation medication, Starting on 08/15/20 at 1457 melatonin tablet 6 mg Given 08/13/2020 10:06 PM COARSE WIRE DRAWER 6 mg 6 mg, oral, Daily at bedtime, First dose on Mon08/12/20 at 2100 Given 08/12/2020 9:46 PM COARSE WIRE DRAWER 6 mg NaCl 0.9% infusion 10-250 mL/hr, intravenous, As needed, Be tween Consecutive Piggyback Medications, Starting on Mon08/12/20 at 0647, Infuse at the same ra te as the piggyback until tubing clears or up to a volume of 20 mL . Select for IV medication administration when no maintenance IV available or when IV medication s are not compatible with maintenance fluid. NaCl 0.9% infusion 10-250 mL/hr, intravenous, As needed, Post Medications (Hazardous/Low Fluid Volume), Starting on Mon08/12/20 at 0647 , Infuse at the same rate as the medication until tubing cleared of medication, then discard. naloxone injection 0.2 mg (NARCAN) 0.2 mg, intravenous, As needed, respirat ory depression, Starting on Mon08/12/20 at 2216, For RASS Score -4 or less, respiratory rate of l ess than 8 breaths/min. Notify provider/service and rapid response team (if av ailable at institution). oxyCODONE IR tablet 5 mg (ROXICODONE) Given 08/15/2020 5:00 PM COARSE WIRE DRAWER 5 mg 5 mg, oral, Every 6 hours PRN, severe pain or score 7-10 of 10, Starting on Mon08/12/20 at 2212 Given 08/15/2020 11:13 AM COARSE WIRE DRAWER 5 mg Given 08/15/2020 4:39 AM COARSE WIRE DRAWER 5 mg piperacillin-tazobactam in dextrose New Bag 08/14/2020 9:30 AM COARSE WIRE DRAWER 3.375 g 100 mL/hr (iso-osm) IVPB 3.375 g (ZOSYN) 3.375 g, intravenous, at 100 mL/hr, Administer over 0.5 Hours, Every 6 hours, First dose on Mon08/12/20 at 1030, premix bag, Drug Monitoring Program: Pharmacist to adjust medication dosing based on indication and drug clearance factors., Indications: Intra-abdominal infection, community acquired, cholangitis, complicated pancreatitis New Bag 08/14/2020 4:11 AM COARSE WIRE DRAWER 3.375 g 100 mL/hr New Bag 08/13/2020 9:36 PM COARSE WIRE DRAWER 3.375 g 100 mL/hr polyethylene glycol powder packet 1 pack et (MIRALAX) 1 packet, oral, Daily PRN, constipation, Starting on Mon08/12/20 at 0938, Ordered sequence of administration: polyethylene glycol, then bisacodyl until BM achieved. Avoid mixing with starch-based thickened liquids. sennosides-docusate sodium 8.6-50 mg per tablet 1 tablet (SENOKOT-S) 1 tablet, oral, Daily PRN, constipation, Starting on Mon08/12/20 at 0949, Do not give if patient has diarrhea. simethicone chewable tablet 80 mg (MYLIC ON) Given 08/15/2020 3:12 AM COARSE WIRE DRAWER 80 mg 80 mg, oral, 4 times daily PRN, flatulence, Starting on Mon08/12/20 at 1816 Given 08/14/2020 9:05 AM COARSE WIRE DRAWER 80 mg Given 08/13/2020 2:39 PM COARSE WIRE DRAWER 80 mg sodium chloride 0.9 % injection 10 mL 10 mL, intravenous, As needed, line care, Starting on Mon08/12/20 at 0938, Peripheral Intravenous Catheter and Rapid Infusion Cat heter, prior to blood sampling, post blood transfusion or post blood samplin g sodium chloride 0.9 % injection 3 mL 3 mL, intravenous, As needed, line care, Starting on Mon08/12/20 at 0938, Prior to and following infusion and between multi ple consecutive infusions: sodium chloride 0.9 % injection sodium chloride 0.9 % injection 3 mL Given 08/15/2020 9:22 AM [employer]IRE [employer]RAW[employer] 3 mL 3 mL, intravenous, Every 12 hours scheduled, First dose on Mon08/12/20 at 2100, Peripheral Intravenous Catheter and Rapid Infusion Catheter, when no infusion to maintain patency Given 08/14/2020 9:30 AM [employer]IRE DRAW[employer] 3 mL Given 08/13/2020 10:40 AM [employer] DRAWER 3 mL sodium chloride 0.9 % injection 3 mL Given 08/12/2020 8:37 AM [employer] DRAWER 3 mL 3 mL, intravenous, Every 12 hours scheduled, First dose on Mon08/12/20 at 0900, Peripheral Intravenous Catheter and Rapid Infusion Catheter: When no infusion to maintain patency. documented in this encounter Active and Recently Administered Medications Times are shown in [employer]. Scheduled Medication Order 08/13/2020 08/14/2020 08/15/2020 acetaminophen tablet 500 mg (TYLENOL) 0405 (Given - Pr ovider: Meryl Sutton RMariajose)1040 (Given - Provider: Annie Ludwig RRiazNRiaz)1603 (Given - Provider: Cipriano CisnerosNRiaz)2206 (Given - Provider: Precious Nevarez R.N.) 0411 (Given - Provider: Lacey Munoz RRiazNRiaz)1008 (Given - Provider: John Higuera RRiazNRiaz)1659 (Given - Provider: Aleksandra Gonsales RRiazNRiaz)2239 (Given - Provider: Madina Dunbar RMariajose) 0439 (Given - Provider: Lacey Munoz RRiazNRiaz)1113 (Given - Provider: John Higuera R.N.)1700 (Given - Provider: Toño Murphy RRiazNRiaz) 500 mg, oral, Every 6 hours, First dose on Mon08/12/20 at 2300 cefTRIAXone in dextrose (iso-osm) IVPB 2 g (ROCEPHIN) (CANCE LED) 1708 (New Bag - Provider: Madina Dunbar R.N.) 2 g, intravenous, at 200 mL/hr, Administ er over 15 Minutes, Every 24 hours, First dose on Mon08/14/20 at 1600, premix bag, Drug Monitoring Program: Pharmacist to adjust medication dosing based on indica tion and drug clearance factors., Indica tions: Intra-abdominal infection, community acquired cefTRIAXone in dextrose (iso-osm) IVPB 2 g (ROCEPHIN) 1638 (New Bag - Provider: Jose Mercado - Comment: Most recent dose given at 1638 on 08/15/2020. Please give subsequent dose on 08/16/2020 between 1430 and 1830.) 2 g, intravenous, at 200 mL/hr, Administ er over 15 Minutes, Every 24 hours, First dose (after last modification) on 08/15/20 at 1400, premix bag, Drug Monitoring Program: Pharmacist to adjust medicat ion dosing based on indication and drug clearance factors., Indications: Intra- abdominal infection, community acquired enoxaparin injection 80 mg (LOVENOX) 1040 (Given - Pro vider: Annie Ludwig RRiazNRiaz)2105 (Given - Provider: Precious Nevarez R.N.) 1001 (Given - Provider: John Higuera R.N.)2114 (Given - Provider: Madina Dunbar R.N.) 0917 (Given - Provider: Alvin Rausch, R.N.) 80 mg, subcutaneous, 2 times daily, Firs t dose (after last modification) on Sandra 08/13/20 at 0945 melatonin tablet 6 mg 2205 (Given - Provider: Precious Nevarez R.N.) 2115 (Not Given - Provider: Madina Dunbar R.N. - Reason: Patient/family refused) 6 mg, oral, Daily at bedtime, First dose on Mon08/12/20 at 2100 piperacillin-tazobactam in dextrose (iso-osm) IVPB 3.3 75 g (ZOSYN) (CANCELED) 0405 (New Bag - Provider: Meryl Sutton RRiazNRiaz)1041 (New Bag - Provider: Annie Ludwig RMariajose)1604 (New Bag - Provider: Precious Nevarez R.N.)2136 (New Bag - Provider: Precious Nevarez R.N.) 0411 (New Bag - Provider: Lacey arriaga R.N.)0930 (New Bag - Provider: John Higuera R.N.) 3.375 g, intravenous, at 100 mL/hr, Admi nister over 0.5 Hours, Every 6 hours, First dose on Mon08/12/20 at 1030, premix bag, Drug Monitoring Program: Pharmacist to adjust medication dosing based on trinh cation and drug clearance factors., Trinh cations: Intra-abdominal infection, community acquired, cholangitis, complicated pancreatitis sodium chloride 0.9 % injection 3 mL 1040 (Given - Pro vider: Annie Ludwig RRiazNRiaz)2108 (Not Given - Provider: Cipriano CisnerosNRiaz - Reason: Order parameters not met) 929 (Given - Provider: John Higuera RRiaz NRiaz)2115 (Not Given - Provider: Cipriano AdamsNRiaz - Reason: Patient/family refused - Comment: patient sleeping) 921 (Given - Provider: Alvin Castro, R.N.) 3 mL, intravenous, Every 12 hours schedu led, First dose on Mon08/12/20 at 2100, Peripheral Intravenous Catheter and Rapid Infusion Catheter, when no infusion to maintain patency PRN Medication Order 08/13/2020 08/14/2020 08/15/2020 D5W infusion 10-250 mL/hr, intravenous, As needed, Me dications Incompatible with 0.9% NaCL, Starting on Mon08/12/20 at 0647, Infuse at the same rate as the piggyback until tubing clears or up to a volume of 20 mL pr e and post infusion for medications inco mpatible with 0.9% NaCL. Use 100 mL bag then discard. lidocaine 10 mg/mL (1 %) injection (XYLOCAINE) (COMPLETED) 1457 (Given - Provider: Reji Bales M.D.) Code/trauma/sedation medication, Starting on 08/15/20 at 1457 NaCl 0.9% infusion 10-250 mL/hr, intravenous, As needed, Be tween Consecutive Piggyback Medications, Starting on 08/12/20 at 0647, Infuse at the same rate as the piggyback until tubing clears or up to a volume of 20 mL. Select for IV medication administration when no maintenance IV available or when IV medications are not compatible with maintenance fluid. NaCl 0.9% infusion 10-250 mL/hr, intravenous, As needed, Po st Medications (Hazardous/Low Fluid Volume), Starting on Mon08/12/20 at 0647, Infuse at the same rate as the medication until tubing cleared of medication, then discard. naloxone injection 0.2 mg (NARCAN) 0.2 mg, intravenous, As needed, respirat ory depression, Starting on Mon08/12/20 at 2216, For RASS Score -4 or less, respiratory rate of less than 8 breaths/min. Notify provider/service and rapid response team (if available at institution). oxyCODONE IR tablet 5 mg (ROXICODONE) 0405 (Given - Pr ovider: Meryl Sutton, R.N.)1041 (Not Given - Provider: Annie Ludwig R.N. - Reason: Patient/family refused)1603 (Given - Provider: Precious Nevarez R.N.)2206 (Given - Provider: Precious Nevarez R.N.) 0402 (Given - Provider: Mariela gonzáles R.N.)1007 (Given - Provider: John Higuera R.N.)1659 (Given - Provider: Aleksandra Gonsales R.N.)2239 (Given - Provider: Madina Dunbar R.N.) 0439 (Given - Provider: Lacey Munoz R.N.)1113 (Given - Provider: John Higuera R.N.)1700 (Given - Provider: Toño Murphy R.N.) 5 mg, oral, Every 6 hours PRN, severe pa in or score 7-10 of 10, Starting on Mon08/12/20 at 2212 polyethylene glycol powder packet 1 packet (MIRALAX) 1 packet, oral, Daily PRN, constipation, Starting on Mon08/12/20 at 0938, Ordered sequence of administration: polyethylene glycol, then bisacodyl until BM achieved. Avoid mixing with starch-based thickened liquids. sennosides-docusate sodium 8.6-50 mg per tablet 1 tablet (SENOKO T-S) 1 tablet, oral, Daily PRN, constipation, Starting on Mon08/12/20 at 0949, Do not give if patient has diarrhea. simethicone chewable tablet 80 mg (MYLICON) 926 (Give n - Provider: Jackie Aguilera R.N.)1439 (Given - Provider: Bruna Santiago RRiazNRiaz) 0905 (Given - Provider: John Higuera R.N.) 0312 (Given - Provider: Veena Alcala R.N.) 80 mg, oral, 4 times daily PRN, flatulence, Starting on 08/12 at 1816 sodium chloride 0.9 % injection 10 mL 10 mL, intravenous, As needed, line care , Starting on Mon08/12/20 at 0938, Peripheral Intravenous Catheter and Rapid Infusion Catheter, prior to blood sampling, post blood transfusion or post blood sampling sodium chloride 0.9 % injection 3 mL 3 mL, intravenous, As needed, line care, Starting on Mon08/12/20 at 0938, Prior to and following infusion and between multiple consecutive infusions: sodium chloride 0.9 % injection documented in this encounter Additional Health Concerns Infection Onset Date Last Indicated Resolved Time COVID19 Pending 08/12/2020 08/12/2020 08/12/2020 7:39 AM [employer] COVID19 Pending 08/12/2020 08/12/2020 08/12/2020 8:33 AM [employer]IRE DRAW[employer] documented as of this encounter Care Teams [employer] Relationship Specialty Start Date End Date Elsewhere, Pcp PCP - General Family Medicine 08/12/20 documented as of this encounter
[2022-06-18 17:13] LABS: SARS PCR* Negative SARS-CoV-2 (Negative)
[2022-06-18] MEDS: HYDROmorphone 2 MG TABLET 4 MG PO (18:55)
[2022-06-18] MEDS: HEPARIN 500 UNIT/5 ML SYRINGE IVF (19:10)
== END 2022-06-18 19:16 | disposition home or self-care (01) ==
PROVIDERS: Emergency Provider Family Medicine
DX: M54.50 Low back pain, unspecified (principal); M54.6 Pain in thoracic spine; C25.9 Malignant neoplasm of pancreas, unspecified
CPT/HCPCS: 36415; 71260; 72128; 72131; 74177; 80053; 83690; 85025; 86140; 87635; 94761; 96374; 96375; 96376; 99284; 99285; A9270; J1170; J1642; J2405; J7030; Q9967

== ENCOUNTER 2022-07-07 15:00 | Emergency (ER) | payer OTHER, SELFPAY ==
[2022-07-07 15:05] VITALS: BP 97/74; PULSE 75; RESP 18; TEMP 36.6; O2SAT 100; BMI 23.6
--- NOTE | 2022-07-07 15:30 | ED.NAVMDI ---
HPI - Nausea/Vomiting/Diarrhea General Date Seen: 07/07/22 Chief complaint: Nausea/Vomiting Stated complaint: Vomiting, diarrhea Time Seen by Provider: 07/07/22 15:12 Source: patient Mode of arrival: ambulatory Limitations: no limitations History of Present Illness HPI Narrative: Patient is a 49-year-old gentleman who has metastatic pancreatic cancer, he presents here with a history of diarrhea, he has had no vomiting or nausea but feels weak overall, this occurred last night, primarily stop to 6:00 a.m. but he feels the stomach gurgling, and thinks it may come back on. No history of C diff in his past, has not been on it in any antibiotics in the past 3 months, denies any blood within his diarrhea, but really no form associated with this. His last chemotherapy was arm week and half ago, and was held because his LFTs were elevated along with the low platelet count at 70. They are worried also that he may be jaundice, and that is why they came in. MD elicited complaint: diarrhea Onset (ago): hour(s) Description of vomiting: other Associated nausea: Yes Associated abdominal pain: No Related Data Home Medications Medication Instructions Recorded Confirmed gabapentin 300 mg capsule mg 03/14/22 hydromorphone 4 mg tablet mg 03/14/22 myabnu-zxwambbh-tjrgrlt cap PO 03/14/22 24,000-76,000-120,000 unit capsule,delayed rel (Creon) lorazepam 0.5 mg tablet mg 03/14/22 ondansetron 8 mg disintegrating mg 03/14/22 tablet pantoprazole 40 mg tablet,delayed mg PO 03/14/22 release trazodone 50 mg tablet mg 03/14/22 Previous Rx's Medication Instructions Recorded levofloxacin 750 mg tablet 750 mg PO DAILY 7 days #7 tabs 03/14/22 hydromorphone 4 mg tablet 4 mg PO Q6H PRN pain #4 tabs 06/18/22 (Dilaudid) Allergies Allergy/AdvReac Type Severity Reaction Status Date / Time prochlorperazine Allergy Verified 05/24/22 14:35 [From Compazine] Review of Systems Status of ROS: Reports: 10 or more systems reviewed and unremarkable except as noted in History and below GI: Reports: nausea PFSH PFSH Social History Smoking Status: Never smoker Do you use any of these nicotine containing products: None, Vaping Products and Other Second hand tobacco smoke exposure: No How often do you have a drink containing alcohol: never How often do you have six or more drinks on one occasion: Never AUDIT-C Alcohol total score: 0 Non-prescribed substance use: denies use service: No Exam Narrative: Exam Narrative: Patient is a 49-year-old gentleman who appears nontoxic sitting quietly in room 1. With his . Pupils are equal round reactive to light do not see any scleral icterus, TMs are normal oropharynx is normal and good hydration status is noted, he is thin, there is no lymphadenopathy anterior posterior chains chest is good air entry bilaterally with no wheezing crackles noted heart sounds no clicks murmurs or gallops his abdomen is soft bowel sounds are notable in all quadrants. Extremities appear normal there is no swelling edema noted, he moves all extremities independently and well. With no rashes. Const: Vital Signs, click to edit/add: Vital Signs - 24 hr 07/07/22 15:05 07/07/22 16:00 07/07/22 17:00 Temperature 97.9 F 97.7 F Pulse Rate [Pulse Oximeter] 75 77 84 Respiratory Rate 18 14 12 Blood Pressure [Ri ght Upper Arm] 97/74 100/73 96/55 L Pulse Oximetry 100 97 97 Oxygen Delivery Me thod Room Air Room Air Room Air Documenting provider has reviewed patient's vital signs: yes Course Course Hospital Course: I spoke to both [facility], and we discussed the patient's laboratory findings, is elevated bili room, his recent history of an ERCP and stent placement in May of 2022 with issue of the pancreatic cancer. They both felt that he could be treated as an outpatient rate now, with the absence of any suggestion of cholangitis, I do not think this gentleman has this rate now, he has not absolutely no pain in his abdomen, I do think however that it would be important to rule out C diff, GI did not feel that antibiotics as an outpatient were necessary, but did feel that if he got worsening he needs to come back in. Suggestion from them an oncology was to call Oncology in the morning to get set up as an outpatient. Patient is were informed of this, he is doing better after the fluids feels well has had no diarrhea no abdominal pain, I think outpatient course is reasonable at this time. Vital Signs Vital signs: Initial Vital Signs Temperature 97.9 F 07/07/22 15:05 Temperature Source Temporal Artery Scan 07/07/22 15:05 Pulse Rate 75 07/07/22 15:05 Pulse Rhythm 07/07/22 15:05 Respiratory Rate 18 07/07/22 15:05 Blood Pressure 97/74 07/07/22 15:05 Blood Pressure Mean 81 07/07/22 15:05 Blood Pressure Position Supine 07/07/22 15:05 Pulse Oximetry 100 07/07/22 15:05 Oxygen Delivery Method 07/07/22 15:05 Vital Signs Temperature 97.9 F 07/07/22 15:05 Pulse Rate 75 07/07/22 15:05 Respiratory Rate 18 07/07/22 15:05 Blood Pressure 97/74 07/07/22 15:05 Pulse Oximetry 100 07/07/22 15:05 Oxygen Delivery Method 07/07/22 15:05 Temperature 97.7 F 07/07/22 17:00 Pulse Rate 84 07/07/22 17:00 Respiratory Rate 12 07/07/22 17:00 Blood Pressure 96/55 L 07/07/22 17:00 Pulse Oximetry 97 07/07/22 17:00 Oxygen Delivery Method 07/07/22 17:00 MDM - Nausea/Vomiting/Diarrhea MDM Narrative Medical decision making narrative: Differential diagnosis considered include but not limited to viral gastroenteritis, food poisoning, bowel obstruction, Clostridium difficile, Campylobacter, Shigella, rotavirus, medication side effects, dysentery, diverticulitis, Crohn's disease and colitis Examination is reassuring, will do some labs, and we will discuss these will give some fluids well and waiting here. Medical Records Attestation: I reviewed the patient's medical records. Lab Data Attestation: I reviewed the patient's lab results. Labs: Lab Results 07/07/22 07/07/22 07/07/22 Range/Units 15:32 15:35 15:50 WBC 4.09 L (4.50-11.00) K/uL RBC 3.96 L (4.30-5.90) m/uL Hgb 10.9 L (13.5-17.5) gm/dL Hct 34.0 L (37.0-53.0) % MCV 86 (80-100) fL MCH 28 (26-34) pg MCHC 32 (32-36) gm/dL RDW Coeff of Félix 16.8 H (11.5-15.5) % Plt Count 448 H (140-440) K/uL Neut % (Auto) 66.7 (42.0-72.0) % Lymph % (Auto) 13.4 L (20-44) % Hinds % (Auto) 16.6 H (0.0-11.0) % Eos % (Auto) 2.9 (0.0-7.0) % Baso % (Auto) 0.2 (0.0-3.0) % Neut # (Auto) 2.70 (1.7-7.0) K/uL Lymph # (Auto) 0.50 L (0.90-2.90) K/uL Hinds # (Auto) 0.70 (0.00-0.90) K/UL Eos # (Auto) 0.10 (0.00-0.50) K/uL Baso # (Auto) 0.00 (0.00-0.30) K/uL Abs Immat Gran (auto) 0.01 (0.00-0.30) K/uL Sodium (135-149) mmol/L Potassium (3.6-5.1) mmol/L Chloride (96-114) mmol/L Carbon Dioxide (20-32) mmol/L BUN (7-30) mg/dL Creatinine (0.5-1.5) mg/dL Estimated Creat Clear Estimated GFR ml/min Glucose (60-115) mg/dL Lactate (0.5-1.9) mmol/L Calcium (8.4-10.6) mg/dL Total Bilirubin (0.1-1.5) mg/dL Direct Bilirubin (0.0-0.5) mg/dL AST (12-35) U/L ALT (4-50) U/L Alkaline Phosphatase (40-150) U/L Total Protein (6.0-8.3) g/dL Albumin (3.3-5.0) g/dL Urine Color [place] A (Yellow) Urine Appearance Cloudy A (Clear) Urine pH 5.5 (5.0-8.5) Ur Specific [place] 1.025 (1.000-1.030) Urine Protein Negative (Negative) Urine Glucose (UA) Negative (Negative) Urine Ketones Negative (Negative) Urine Blood Negative (Negative) Urine Nitrite Negative (Negative) Urine Bilirubin 2+ A (Negative) Urine Urobilinogen 1.0 (0.2-1.0) Ur Leukocyte Esterase Negative (Negative) Urine RBC 0-2 (0-2) Urine WBC 0-2 (0-5) Ur Squamous Epith Cells Few (None-Few) Urine Bacteria None (None) SARS-CoV-2 (PCR) Negative SARS-CoV-2 (Negative) Influenza Type A (PCR) Negative PCR FLU A (Negative) Influenza Type B (PCR) Negative PCR FLU B (Negative) RSV (PCR) Negative PCR RSV (Negative) 07/07/22 07/07/22 Range/Units 15:50 15:50 WBC (4.50-11.00) K/uL RBC (4.30-5.90) m/uL Hgb (13.5-17.5) gm/dL Hct (37.0-53.0) % MCV (80-100) fL MCH (26-34) pg MCHC (32-36) gm/dL RDW Coeff of Félix (11.5-15.5) % Plt Count (140-440) K/uL Neut % (Auto) (42.0-72.0) % Lymph % (Auto) (20-44) % Hind[place] % (Auto) (0.0-11.0) % Eos % (Auto) (0.0-7.0) % Baso % (Auto) (0.0-3.0) % Neut # (Auto) (1.7-7.0) K/uL Lymph # (Auto) (0.90-2.90) K/uL Hind[place] # (Auto) (0.00-0.90) K/UL Eos # (Auto) (0.00-0.50) K/uL Baso # (Auto) (0.00-0.30) K/uL Abs Immat Gran (auto) (0.00-0.30) K/uL Sodium 137 (135-149) mmol/L Potassium 3.6 (3.6-5.1) mmol/L Chloride 102 (96-114) mmol/L Carbon Dioxide 26 (20-32) mmol/L BUN 16 (7-30) mg/dL Creatinine 0.8 (0.5-1.5) mg/dL Estimated Creat Clear 97.38 Estimated GFR 103 ml/min Glucose 129 H (60-115) mg/dL Lactate 0.8 (0.5-1.9) mmol/L Calcium 8.7 (8.4-10.6) mg/dL Total Bilirubin 3.2 H (0.1-1.5) mg/dL Direct Bilirubin 2.3 H (0.0-0.5) mg/dL AST 60 H (12-35) U/L ALT 123 H (4-50) U/L Alkaline Phosphatase 622 H (40-150) U/L Total Protein 7.6 (6.0-8.3) g/dL Albumin 3.9 (3.3-5.0) g/dL Urine Color (Yellow) Urine Appearance (Clear) Urine pH (5.0-8.5) Ur Specific [place] (1.000-1.030) Urine Protein (Negative) Urine Glucose (UA) (Negative) Urine Ketones (Negative) Urine Blood (Negative) Urine Nitrite (Negative) Urine Bilirubin (Negative) Urine Urobilinogen (0.2-1.0) Ur Leukocyte Esterase (Negative) Urine RBC (0-2) Urine WBC (0-5) Ur Squamous Epith Cells (None-Few) Urine Bacteria (None) SARS-CoV-2 (PCR) (Negative) Influenza Type A (PCR) (Negative) Influenza Type B (PCR) (Negative) RSV (PCR) (Negative) Discharge Plan Discharge Clinical Impression: Cancer of pancreas, Diarrhea, Elevated bilirubin Patient Disposition: Home w/ Parent or Adult Condition: Stable Instructions: Pancreatic Cancer (DC), Acute Diarrhea (ED), Jaundice (ED) Additional Instructions: Patient can go home, continue with fluids, would be nice to get a C diff sample, to rule this out, call your [facility] team tomorrow and alert them urine ER, the doctor talked to both them and also GI. His you likely will need some GI procedure in the near future. If you do develop fevers, right upper quadrant pain, vomiting, then you need to follow up at once. I discussed with the GI doctor he did not want you on antibiotics currently Prescriptions: No Action gabapentin 300 mg capsule hydromorphone 4 mg tablet trazodone 50 mg tablet Label Comments: TAKE 1-2 TABLETS BY MOUTH AT BEDTIME. TAKE 50MG DAILY AT BEDTIME FOR ATLEAST 7 DAYS. MAY INCREASE TO 100MG IF NEEDED. ondansetron 8 mg tablet,disintegrating lorazepam 0.5 mg tablet pantoprazole 40 mg tablet,delayed release (DR/EC) PO Label Comments: TAKE 1 TABLET BY MOUTH EVERY MORNING BEFORE BREAKFAST. Creon 24,000-76,000 -120,000 unit capsule,delayed release(DR/EC) PO Label Comments: TAKE 2 CAPSULES BY MOUTH WITH MEALS AND 1-2 CAPSULES WITH SNACKS levofloxacin 750 mg tablet 750 mg PO DAILY 7 Days Qty: 7 0RF hydromorphone [Dilaudid] 4 mg tablet 4 mg PO Q6H PRN (Reason: pain) Qty: 4 0RF Follow Up/Referrals: Provider,Not a Local [Primary Care Provider] - Stand Alone Forms: Transmit Promo Info Instructions
[2022-07-07 16:00] VITALS: BP 100/73; PULSE 77; RESP 14; O2SAT 97
[2022-07-07 16:00] LABS: Lactate* 0.8 mmol/L (0.5-1.9)
[2022-07-07] MEDS: 0.9 % SODIUM CHLORIDE 1000 ml 1,000 ML IV ×2 (16:00→17:26)
[2022-07-07 16:03] LABS: Basophils Percent Auto 0.2 % (0.0-3.0); Eosinophils Percent Auto 2.9 % (0.0-7.0); Hemoglobin* 10.9 gm/dL (13.5-17.5); Immature Granulocytes Abs Auto 0.01 K/uL (0.00-0.30); Lymphocytes Percent Auto 13.4 % (20-44); Mean Corpuscular HGB Conc 32 gm/dL (32-36); Mean Corpuscular Hemoglobin 28 pg (26-34); Mean Corpuscular Volume 86 fL (80-100); Monocytes Percent Auto 16.6 % (0.0-11.0); Neutrophils Percent Auto 66.7 % (42.0-72.0); Platelet Count* 448 K/uL (140-440); RDW Coefficient of Variation % 16.8 % (11.5-15.5); Red Blood Count 3.96 m/uL (4.30-5.90); Slide Review Reflex No; White Blood Count* 4.09 K/uL (4.50-11.00)
[2022-07-07] MEDS: HYDROmorphone 0.5 mg/0.5 ml inj 1 MG IVP (16:12)
[2022-07-07 16:15] LABS: Albumin* 3.9 g/dL (3.3-5.0)
[2022-07-07 16:16] LABS: Chloride* 102 mmol/L (96-114); Potassium* 3.6 mmol/L (3.6-5.1); Sodium* 137 mmol/L (135-149)
[2022-07-07 16:18] LABS: Bilirubin Direct* 2.3 mg/dL (0.0-0.5); Bilirubin Total* 3.2 mg/dL (0.1-1.5); Carbon Dioxide* 26 mmol/L (20-32); Creatinine* 0.8 mg/dL (0.5-1.5); Est. Creatinine Clearance* 97.38; Estimated Glomerular Filt Rate 103 ml/min
[2022-07-07 16:19] LABS: Alanine Aminotransferase* 123 U/L (4-50); Alkaline Phosphatase* 622 U/L (40-150); Aspartate Amino Transferase* 60 U/L (12-35); Blood Urea Nitrogen* 16 mg/dL (7-30); Glucose* 129 mg/dL (60-115); Total Protein* 7.6 g/dL (6.0-8.3)
[2022-07-07 16:20] LABS: PCR FLU A Negative PCR FLU A (Negative); PCR FLU B Negative PCR FLU B (Negative); PCR RSV Negative PCR RSV (Negative); SARS PCR* Negative SARS-CoV-2 (Negative)
[2022-07-07 16:20] LABS: Calcium* 8.7 mg/dL (8.4-10.6)
[2022-07-07 17:00] VITALS: BP 96/55; PULSE 84; RESP 12; TEMP 36.5; O2SAT 97
[2022-07-07 17:16] LABS: Appearance Urine Cloudy (Clear); Bilirubin Urine 2+ (Negative); Blood Urine Negative (Negative); Glucose Urine Negative (Negative); Ketones Urine Negative (Negative); Leukocyte Esterase Urine Negative (Negative); Nitrite Urine Negative (Negative); Protein Urine Negative (Negative); Specific Gravity Urine 1.025 (1.000-1.030); pH Urine 5.5 (5.0-8.5)
[2022-07-07] MEDS: FUROSEMIDE 10 MG/ML inj IVP (17:26)
[2022-07-07 17:49] LABS: Color Urine Orange (Yellow); RBC Urine 0-2 (0-2); Squamous Epithelial Cell Urine Few (None-Few); WBC Urine 0-2 (0-5)
[2022-07-07] MEDS: HEPARIN 500 UNIT/5 ML SYRINGE IVF (18:41)
[2022-07-09 17:26] LABS: C.Difficile Negative (Negative); CDIFFEPI 027 PRESUMPTIVE NEGATIVE (Negative)
== END 2022-07-07 18:41 | disposition home or self-care (01) ==
PROVIDERS: Emergency Provider Family Medicine
DX: R19.7 Diarrhea, unspecified (principal); C25.9 Malignant neoplasm of pancreas, unspecified
CPT/HCPCS: 36415; 80048; 80076; 81001; 83605; 85025; 87493; 87502; 87634; 87635; 96374; 96375; 99284; 99285; J1170; J1642; J1940; J7030

== ENCOUNTER 2022-12-16 15:26 | Emergency (ER) | payer OTHER, SELFPAY ==
[2022-12-16 15:31] VITALS: BP 115/65; PULSE 100; RESP 18; TEMP 37.6; O2SAT 99; BMI 25.0
--- NOTE | 2022-12-16 15:56 | ED.GENADULT ---
HPI - General Adult General Chief complaint: Abdominal Pain Stated complaint: Blood clot in stent Time Seen by Provider: 12/16/22 15:37 Source: patient Mode of arrival: ambulatory Limitations: no limitations History of Present Illness HPI narrative: 57-year-old male with a history of pancreatic cancer presenting today at the request of his oncologist. Patient has been having some increasing back pain and had a CT scan done today at [facility] an on his drive home he was told to come to the nearest ER. I did speak to Dr. Mantilla, the oncologist on-call at [facility] today who stated that the patient has a portal vein stent that is newly thrombosed. He sent the patient here to get started on daily Lovenox. Patient does have an appointment already scheduled for follow-up this coming Monday. Related Data Home Medications Medication Instructions Recorded Confirmed gabapentin 300 mg capsule mg 03/14/22 hydromorphone 4 mg tablet mg 03/14/22 tcakdx-[id number]-urbbdgw cap PO 03/14/22 24,000-76,000-120,000 unit capsule,delayed rel (Creon) lorazepam 0.5 mg tablet mg 03/14/22 ondansetron 8 mg disintegrating mg 03/14/22 tablet pantoprazole 40 mg tablet,delayed mg PO 03/14/22 release trazodone 50 mg tablet mg 03/14/22 Previous Rx's Medication Instructions Recorded levofloxacin 750 mg tablet 750 mg PO DAILY 7 days #7 tabs 03/14/22 hydromorphone 4 mg tablet 4 mg PO Q6H PRN pain #4 tabs 06/18/22 (Dilaudid) enoxaparin 80 mg/0.8 mL 80 mg (0.8 mL) subcut Q12H #8 mL 12/16/22 subcutaneous syringe (Lovenox) Allergies Allergy/AdvReac Type Severity Reaction Status Date / Time prochlorperazine Allergy Verified 05/24/22 14:35 [From Compazine] Review of Systems Status of ROS: Reports: 10 or more systems reviewed and unremarkable except as noted in History and below PFSH PFSH Social History Smoking Status: Never smoker Do you use any of these nicotine containing products: None, Vaping Products and Other Second hand tobacco smoke exposure: No How often do you have a drink containing alcohol: never How often do you have six or more drinks on one occasion: Never AUDIT-C Alcohol total score: 0 Non-prescribed substance use: denies use service: No Exam Narrative: Exam Narrative: Well-nourished well-developed patient in no acute distress. Alert and oriented x3. Answers questions appropriately. Mood and affect are appropriate. Thoughts are goal oriented and rational. No tangential or magical thinking noted. Patient speaks in full sentences without needing to catch his breath. HEENT: Normocephalic atraumatic. Pupils are equally round reactive to light. Extraocular muscles are intact. Conjunctivae are moist . Cardiovascular: Heart is regular rate and rhythm. Lungs: Clear to auscultation bilaterally. Abdomen: Soft and nondistended with normal bowel sounds. Skin: Well perfused without any obvious rashes. Const: Vital Signs, click to edit/add: Vital Signs - 24 hr 12/16/22 15:31 Temperature 99.6 F Pulse Rate [Left P ulse Oximeter] 100 Respiratory Rate 18 Blood Pressure [Le ft Upper Arm] 115/65 Pulse Oximetry 99 Oxygen Delivery Me thod Room Air Course Course Hospital Course: Patient received dose of oral Dilaudid while he was here for his discomfort and his 1st dose of Lovenox. Lovenox education also provided. Vital Signs Vital signs: Initial Vital Signs Temperature 99.6 F 12/16/22 15:31 Temperature Source Temporal Artery Scan 12/16/22 15:31 Pulse Rate 100 12/16/22 15:31 Pulse Rhythm Regular 12/16/22 15:31 Pulse Strength 3+ Normal 12/16/22 15:31 Respiratory Rate 18 12/16/22 15:31 Blood Pressure 115/65 12/16/22 15:31 Blood Pressure Mean 81 12/16/22 15:31 Blood Pressure Position Supine 12/16/22 15:31 Pulse Oximetry 99 12/16/22 15:31 Oxygen Delivery Method Room Air 12/16/22 15:31 Vital Signs Temperature 99.6 F 12/16/22 15:31 Pulse Rate 100 12/16/22 15:31 Respiratory Rate 18 12/16/22 15:31 Blood Pressure 115/65 12/16/22 15:31 Pulse Oximetry 99 12/16/22 15:31 Oxygen Delivery Method Room Air 12/16/22 15:31 Temperature 99.6 F 12/16/22 15:31 Pulse Rate 100 12/16/22 15:31 Respiratory Rate 18 12/16/22 15:31 Blood Pressure 115/65 12/16/22 15:31 Pulse Oximetry 99 12/16/22 15:31 Oxygen Delivery Method Room Air 12/16/22 15:31 Medical Decision Making MDM Narrative Medical decision making narrative: 57-year-old male with history of pancreatic cancer currently on chemotherapy, with a portal vein stent thrombosis. Plan per [facility], per above. Discharge Plan Discharge Clinical Impression: Portal vein thrombosis Condition: Stable Prescriptions: New enoxaparin [Lovenox] 80 mg/0.8 mL syringe 80 mg subcut Q12H Qty: 8 1RF No Action gabapentin 300 mg capsule hydromorphone 4 mg tablet trazodone 50 mg tablet Patient Comments: TAKE 1-2 TABLETS BY MOUTH AT BEDTIME. TAKE 50MG DAILY AT BEDTIME FOR ATLEAST 7 DAYS. MAY INCREASE TO 100MG IF NEEDED. ondansetron 8 mg tablet,disintegrating lorazepam 0.5 mg tablet pantoprazole 40 mg tablet,delayed release (DR/EC) PO Patient Comments: TAKE 1 TABLET BY MOUTH EVERY MORNING BEFORE BREAKFAST. Creon 24,000-76,000 -120,000 unit capsule,delayed release(DR/EC) PO Patient Comments: TAKE 2 CAPSULES BY MOUTH WITH MEALS AND 1-2 CAPSULES WITH SNACKS levofloxacin 750 mg tablet 750 mg PO DAILY 7 Days Qty: 7 0RF hydromorphone [Dilaudid] 4 mg tablet 4 mg PO Q6H PRN (Reason: pain) Qty: 4 0RF Follow Up/Referrals: Provider,Not a Local [Referring] - Stand Alone Forms: [facility] Info Instructions
== END 2022-12-16 16:30 | disposition home or self-care (01) ==
PROVIDERS: Emergency Provider Family Medicine; PCP Family Medicine
DX: I81 Portal vein thrombosis (principal); C25.9 Malignant neoplasm of pancreas, unspecified
CPT/HCPCS: 99283; 99284

== ENCOUNTER 2023-01-18 03:10 | Emergency (ER) | payer MEDICARE, OTHER, SELFPAY ==
[2023-01-18 03:18] VITALS: BP 132/85; PULSE 114; RESP 18; TEMP 38.3; O2SAT 96
--- NOTE | 2023-01-18 03:20 | ED_ITS ---
HPI - General Adult General Time Seen by Provider: 03:20 Date Seen: 01/18/23 Chief complaint: Fever Stated complaint: Fever,headache Time Seen by Provider: 01/18/23 03:12 Source: patient, RN notes reviewed and old records reviewed Mode of arrival: ambulatory Limitations: no limitations History of Present Illness HPI narrative: 57-year-old male with history of pancreatic cancer, currently getting chemotherapy who presents today with headache and fever. Patient recently return from [place], says he started noticing pain with urination of back pain while he was there. [place] a little nauseated during the day yesterday and then overnight has developed chills, continued nausea, and fever. Denies chest pain, cough, shortness of breath. Chronic runny nose which is related to his chemotherapy. No new abdominal pain. Had some trouble stooling and did use an enema with improvement. Related Data Home Medications Medication Instructions Recorded Confirmed gabapentin 300 mg capsule mg 03/14/22 hydromorphone 4 mg tablet mg 03/14/22 pxfccu-spwhatxk-exosfjs cap PO 03/14/22 24,000-76,000-120,000 unit capsule,delayed rel (Creon) lorazepam 0.5 mg tablet mg 03/14/22 ondansetron 8 mg disintegrating mg 03/14/22 tablet pantoprazole 40 mg tablet,delayed mg PO 03/14/22 release trazodone 50 mg tablet mg 03/14/22 Previous Rx's Medication Instructions Recorded levofloxacin 750 mg tablet 750 mg PO DAILY 7 days #7 tabs 03/14/22 hydromorphone 4 mg tablet 4 mg PO Q6H PRN pain #4 tabs 06/18/22 (Dilaudid) enoxaparin 80 mg/0.8 mL 80 mg (0.8 mL) subcut Q12H #8 mL 12/16/22 subcutaneous syringe (Lovenox) nirmatrelvir 300 mg (150 mg See Rx Instructions PO .COMPLEX 01/18/23 x2)-ritonavir 100 mg tablet,dose #30 ea pack(EUA) (Paxlovid) nirmatrelvir 300 mg (150 mg See Rx Instructions PO .COMPLEX 01/18/23 x2)-ritonavir 100 mg tablet,dose #30 ea pack(EUA) (Paxlovid) Allergies Allergy/AdvReac Type Severity Reaction Status Date / Time prochlorperazine Allergy Verified 05/24/22 14:35 [From Compazine] Review of Systems Status of ROS: Reports: 10 or more systems reviewed and unremarkable except as noted in History and below [facility] Social History Smoking Status: Never smoker Do you use any of these nicotine containing products: None, Vaping Products and Other Second hand tobacco smoke exposure: No How often do you have a drink containing alcohol: never How often do you have six or more drinks on one occasion: Never AUDIT-C Alcohol total score: 0 Non-prescribed substance use: denies use service: No Exam Narrative: Exam Narrative: General: Well-developed and well-nourished, no acute distress Head: Atraumatic and normocephalic Eyes: Pupils are equal reactive, extraocular motions intact, conjunctiva clear ENT: External nose and ears are normal, posterior pharynx without erythema or exudate Neck: No midline cervical tenderness, full spontaneous range of motion the neck, trachea midline, no adenopathy Heart: Tachycardic but regular Lungs: Clear to auscultation bilaterally without wheezes or crackles Abdomen: Soft, nontender, nondistended with active bowel sounds Musculoskeletal: No tenderness, deformity, or edema Neurologic: Awake, alert, and oriented x3, no gross focal neurologic deficits, cranial nerves intact as tested Psych: Mood and affect are appropriate Skin: No rashes Const: Vital Signs, click to edit/add: Vital Signs - 24 hr 01/18/23 03:18 01/18/23 03:31 01/18/23 03:38 Temperature 101.0 F H 101.0 F H Pulse Rate [Left P ulse Oximeter] 114 H Respiratory Rate 18 Blood Pressure [Ri ght Upper Arm] 132/85 Pulse Oximetry 96 95 Oxygen Delivery Me thod Room Air Room Air 01/18/23 05:15 Temperature 98.3 F Pulse Rate [Left P ulse Oximeter] 96 Respiratory Rate 18 Blood Pressure [Ri ght Upper Arm] 99/70 Pulse Oximetry 96 Oxygen Delivery Me thod Room Air Course Course Hospital Course: Patient seen and examined, prior emergency department notes reviewed. Differential diagnosis includes but not limited to influenza, COVID, pneumonia, sepsis, bacteremia, pyelonephritis, intra-abdominal abscess. Patient presents with fever, chills, nausea in urinary symptoms. Suspect urinary tract infection, history of kidney stones as well. Labs and CT scan ordered as well as fluids and Zofran. Reevaluation(s) Reevaluation #1: Urinalysis independently interpreted by me with trace hematuria but no other acute findings. COVID positive which likely source of patient's symptoms today. CT scan will be deferred for now, remaining labs still pending and will discuss with [place] to see if patient is a candidate for antivirals. Time: 04:35 Reevaluation #2: Care discussed with infectious disease at [facility] who feels that Paxlovid is compatible with patient's chemotherapy. Renal function is normal. Patient will be prescribed packs low bid as well as Zofran and can be discharged. Time: 04:58 Vital Signs Vital signs: Initial Vital Signs Temperature 101.0 F H 01/18/23 03:18 Temperature Source Temporal Artery Scan 01/18/23 03:18 Pulse Rate 114 H 01/18/23 03:18 Pulse Rhythm Regular 01/18/23 03:18 Respiratory Rate 18 01/18/23 03:18 Blood Pressure 132/85 01/18/23 03:18 Blood Pressure Mean 100 01/18/23 03:18 Blood Pressure Position Semi-Fowlers 01/18/23 03:18 Pulse Oximetry 96 01/18/23 03:18 Oxygen Delivery Method Room Air 01/18/23 03:18 Vital Signs Temperature 101.0 F H 01/18/23 03:18 Pulse Rate 114 H 01/18/23 03:18 Respiratory Rate 18 01/18/23 03:18 Blood Pressure 132/85 01/18/23 03:18 Pulse Oximetry 96 01/18/23 03:18 Oxygen Delivery Method Room Air 01/18/23 03:18 Temperature 98.3 F 01/18/23 05:15 Pulse Rate 96 01/18/23 05:15 Respiratory Rate 18 01/18/23 05:15 Blood Pressure 99/70 01/18/23 05:15 Pulse Oximetry 96 01/18/23 05:15 Oxygen Delivery Method Room Air 01/18/23 05:15 Medical Decision Making Medical Records Medical records reviewed: Yes I reviewed the patient's medical records Lab Data Lab results reviewed: Yes I reviewed the patient's lab results Labs: Lab Results 01/18/23 01/18/23 Range/Units 03:30 04:00 WBC 5.39 (4.50-11.00) K/uL RBC 3.93 L (4.30-5.90) m/uL Hgb 10.6 L (13.5-17.5) gm/dL Hct 32.7 L (37.0-53.0) % MCV 83 (80-100) fL MCH 27 (26-34) pg MCHC 32 (32-36) gm/dL RDW Coeff of Félix 15.4 (11.5-15.5) % Plt Count 204 (140-440) K/uL Neut % (Auto) 80.3 H (42.0-72.0) % Lymph % (Auto) 4.8 L (20-44) % [place] % (Auto) 13.0 H (0.0-11.0) % Eos % (Auto) 1.1 (0.0-7.0) % Baso % (Auto) 0.4 (0.0-3.0) % Neut # (Auto) 4.30 (1.7-7.0) K/uL Lymph # (Auto) 0.30 L (0.90-2.90) K/uL [place] # (Auto) 0.70 (0.00-0.90) K/UL Eos # (Auto) 0.06 (0.00-0.50) K/uL Baso # (Auto) 0.02 (0.00-0.30) K/uL Sodium 134 L (135-149) mmol/L Potassium 3.8 (3.6-5.1) mmol/L Chloride 102 (96-114) mmol/L Carbon Dioxide 26 (20-32) mmol/L BUN 9 (7-30) mg/dL Creatinine 0.7 (0.5-1.5) mg/dL Estimated GFR 107 ml/min Glucose 124 H (60-115) mg/dL Lactate 0.8 (0.5-1.9) mmol/L Calcium 8.4 (8.4-10.6) mg/dL Magnesium 1.8 (1.5-2.6) mg/dL Total Bilirubin 0.5 (0.1-1.5) mg/dL Direct Bilirubin 0.3 (0.0-0.5) mg/dL AST 122 H (12-35) U/L ALT 90 H (4-50) U/L Alkaline Phosphatase 548 H (40-150) U/L Total Protein 7.3 (6.0-8.3) g/dL Albumin 3.7 (3.3-5.0) g/dL Lipase < 10 L (23-300) U/L Urine Color Yellow (Yellow) Urine Appearance Clear (Clear) Urine pH 7.0 (5.0-8.5) Ur Specific [place] 1.020 (1.000-1.030) Urine Protein Negative (Negative) Urine Glucose (UA) Negative (Negative) Urine Ketones Negative (Negative) Urine Blood Trace-intact A (Negative) Urine Nitrite Negative (Negative) Urine Bilirubin Negative (Negative) Urine Urobilinogen 1.0 (0.2-1.0) Ur Leukocyte Esterase Negative (Negative) Urine RBC 2-5 A (0-2) Urine WBC 0-2 (0-5) Ur Squamous Epith Cells Few (None-Few) Urine Bacteria None (None) SARS-CoV-2 (PCR) POSITIVE SARS-CoV-2 A (Negative) Influenza Type A (PCR) Negative PCR FLU A (Negative) Influenza Type B (PCR) Negative PCR FLU B (Negative) RSV (PCR) Negative PCR RSV (Negative) Discharge Plan Discharge Clinical Impression: COVID, Pancreatic cancer Patient Disposition: Home, Self-Care Condition: Improved Instructions: COVID-19 (Coronavirus Disease 2019) (ED) Additional Instructions: Take Tylenol as needed for fever Take only half dose of trazodone as needed while your taking antiviral Call Oncology morning to discuss further treatment and chemotherapy Activity Level: No Restrictions Discharge Diet: Regular Prescriptions: New Paxlovid (EUA) 300 mg (150 mg x 2)-100 mg tablets,dose pack See Rx Instructions .ROUTE .COMPLEX Qty: 30 0RF Rx Instructions: take TWO 150 mg tablets of nirmatrelvir with ONE 100 mg tablet of ritonavir twice daily for 5 days Paxlovid (EUA) 300 mg (150 mg x 2)-100 mg tablets,dose pack See Rx Instructions .ROUTE .COMPLEX Qty: 30 0RF Rx Instructions: take TWO 150 mg tablets of nirmatrelvir with ONE 100 mg tablet of ritonavir twice daily for 5 days No Action gabapentin 300 mg capsule hydromorphone 4 mg tablet trazodone 50 mg tablet Patient Comments: TAKE 1-2 TABLETS BY MOUTH AT BEDTIME. TAKE 50MG DAILY AT BEDTIME FOR ATLEAST 7 DAYS. MAY INCREASE TO 100MG IF NEEDED. ondansetron 8 mg tablet,disintegrating lorazepam 0.5 mg tablet pantoprazole 40 mg tablet,delayed release (DR/EC) PO Patient Comments: TAKE 1 TABLET BY MOUTH EVERY MORNING BEFORE BREAKFAST. Creon 24,000-76,000 -120,000 unit capsule,delayed release(DR/EC) PO Patient Comments: TAKE 2 CAPSULES BY MOUTH WITH MEALS AND 1-2 CAPSULES WITH SNACKS levofloxacin 750 mg tablet 750 mg PO DAILY 7 Days Qty: 7 0RF enoxaparin [Lovenox] 80 mg/0.8 mL syringe 80 mg subcut Q12H Qty: 8 1RF hydromorphone [Dilaudid] 4 mg tablet 4 mg PO Q6H PRN (Reason: pain) Qty: 4 0RF Follow Up/Referrals: Adrian Mills MD [Primary Care Provider] - Stand Alone Forms: [facility] Info Instructions
[2023-01-18 03:31] VITALS: O2SAT 95
[2023-01-18 03:38] VITALS: TEMP 38.3
[2023-01-18] MEDS: ACETAMINOPHEN 500 MG TABLET 1000 MG PO (03:38)
--- OUTSIDE RECORDS SUMMARY | 2023-01-18 03:44 | XMS_ITS | Continuity of Care Document ---
Author Name Unknown Organization [facility] Address [address] [address] [place] [address] Phone Care Team Providers Care Protector Plate Attacher Name Role Phone Rangel Mon MD Unavailable Unavaila ble Procedures Procedure Date Ercp; W/endo Retro Remov Stone 20 ERCP w/stent & sphinc Subsqt Hosp-da E&m Minr Compl 0 Subsqt Hosp-da E&m Minr Compl 0 Subsqt Hosp-da E&m Stable 15 M 20 Subsqt Hosp-da E&m Stable 15 M 20 Subsqt Hosp-da E&m Minr Compl 0 Init Hosp-da E&m Mod Severity 0 Ugi Endo; W/us Guid Asp/bx ERCP w/stent & sphinc Advance Directives Directive Yes / No Effective Date File Name No Information Encounters Encounter Description Practice Location Reason(s) For Visit Diagnoses Date Provider Providers Copied on Encounter [facility], [address] [address], [place], [place], [id number], [place] tel:[phone] [facility] No Information 0 Yaa Multani. [address] [facility] [address], [place], [place], [id number], [place]. tel:[phone] [facility], [address] [address], [place], [id number], [place] tel:[phone] [facility] No Information 0 Yaa Multani. [address] [facility] [address], [address], [place], [id number], [place]. tel:[phone] Referring Provider: Rangel Alberto, [address] [facility] [address], [address]. [phone] Subsqt Hosp-da E&m Minr Compl [facility], [address] [address], [place], [place], [id number], [place] tel:[phone] [facility] No Information 0 No Information Subsqt Hosp-da E&m Stable 15 M [facility], [address] [address], [place], [place], [id number], [place] tel:[phone] [facility] No Information 0 Lisa Banks. [address] [facility] [address], [address], [place], [id number], [place]. tel:[phone] Referring Provider: Jocelyn MCGINNIS, [address], [address]. tel:[phone] Subsqt Hosp-da E&m Minr Compl [facility], [address] [address], [place], [place], [id number], [place] tel:[phone] [facility] No Information 0 Juan Ramon Arana. [facility] [facility] [address], [address], [place], [id number], [place]. tel:[phone] Referring Provider: Yasmeen Santiago, [address] [place] [address], [address]. tel:[phone] Init Hosp-da E&m Mod Severity [facility], [address] [address], [place], [place], [id number], [place] tel:[phone] [facility] No Information 0 Pedro Loomis. [address], [id number], [place]. tel:[phone] Referring Provider: Vladislav Chilel, [address] [place] [address], [address]. tel:[phone] [facility], [address] [address], [facility] [place], [id number], [place] tel:[phone] [facility] No Information 0 Antonia Gallo. [address], [id number], [place]. tel:[phone] Referring Provider: Sabino Knight MD, [address] [place] [address], [address]. tel:[phone] [facility], [address] [address], [facility] [place], [id number], [place] tel:[phone] [facility] No Information 0 Antonia Gallo. [facility] [address], [id number], [place]. tel:[phone] [facility], [address] [address], [facility] [place], [id number], [place] tel:[phone] [facility] Jaundice 0 Antonia Gallo. [address] [place] [address], [id number], [place]. tel:[phone] Family History Family Member Type Diagnosis Age At Onset No Information Immunizations Vaccine Date Status Comments tetanus toxoid, reduced diphtheria toxoid, and acellular pertussis vaccine, adsorbed administered Note: [facility] b i-directional interface ; Source: Other Registry Influenza, seasonal, injecta ble, preservative free administered Note: [facility] bi-direct ional interface ; Source: Other Registry tetanus and diphtheria toxoi ds, adsorbed, preservative free, for adult use (5 Lf of tetanus toxoid and 2 Lf of diphtheria toxoid) administered Note: [facility] bi-direct ional interface ; Source: Other Registry Payers Payer name Insurance type Covered republican ID Authoriza tion(s) No Information Social History Type Description Quantity Date Captured Comments Sex Male Smoking Status No Information Chief Complaint And Reason For Visit No Information Reason For Referral Reason For Referral No Information Plan Of Treatment Date Type Action Status Referral Ordered: EUS Appointment date/timeframe: 07/31/2020 ordered History Of Present Illness Encounter Date Complaint History Of Prese nt Illness No Information Functional Status Date Functional Assessmen t No Information Instructions Date Instruction Additional Infor mation No Information Assessments Type Assessment Date No Information Patient Care Teams Name Effective Dates (start - stop) Status Members No Information
[2023-01-18 03:48] LABS: Appearance Urine Clear (Clear); Bilirubin Urine Negative (Negative); Blood Urine Trace-intact (Negative); Color Urine Yellow (Yellow); Glucose Urine Negative (Negative); Ketones Urine Negative (Negative); Leukocyte Esterase Urine Negative (Negative); Nitrite Urine Negative (Negative); Protein Urine Negative (Negative)
[2023-01-18 03:51] LABS: Squamous Epithelial Cell Urine Few (None-Few); WBC Urine 0-2 (0-5)
[2023-01-18] MEDS: 0.9 % SODIUM CHLORIDE 1000 ml 1,000 ML IV (04:05)
[2023-01-18] MEDS: HYDROmorphone 0.5 mg/0.5 ml inj 1 MG IVP (04:05)
[2023-01-18] MEDS: ONDANSETRON 2 MG/ML inj 4 MG IVP (04:05)
[2023-01-18 04:09] LABS: Lactate* 0.8 mmol/L (0.5-1.9)
[2023-01-18 04:20] LABS: PCR FLU A Negative PCR FLU A (Negative); PCR FLU B Negative PCR FLU B (Negative); PCR RSV Negative PCR RSV (Negative)
[2023-01-18 04:25] LABS: Albumin* 3.7 g/dL (3.3-5.0)
[2023-01-18 04:26] LABS: Chloride* 102 mmol/L (96-114); Potassium* 3.8 mmol/L (3.6-5.1); Sodium* 134 mmol/L (135-149)
[2023-01-18 04:28] LABS: Bilirubin Direct* 0.3 mg/dL (0.0-0.5); Bilirubin Total* 0.5 mg/dL (0.1-1.5); Carbon Dioxide* 26 mmol/L (20-32); Creatinine* 0.7 mg/dL (0.5-1.5); Estimated Glomerular Filt Rate 107 ml/min
[2023-01-18 04:29] LABS: Alanine Aminotransferase* 90 U/L (4-50); Alkaline Phosphatase* 548 U/L (40-150); Aspartate Amino Transferase* 122 U/L (12-35); Blood Urea Nitrogen* 9 mg/dL (7-30); Calcium* 8.4 mg/dL (8.4-10.6); Glucose* 124 mg/dL (60-115); Magnesium* 1.8 mg/dL (1.5-2.6); Total Protein* 7.3 g/dL (6.0-8.3)
[2023-01-18 04:33] LABS: SARS PCR* POSITIVE SARS-CoV-2 (Negative)
[2023-01-18 04:35] LABS: Lipase* < 10 U/L (23-300)
[2023-01-18 04:41] LABS: Basophils Absolute Auto 0.02 K/uL (0.00-0.30); Basophils Percent Auto 0.4 % (0.0-3.0); Eosinophils Absolute Auto 0.06 K/uL (0.00-0.50); Eosinophils Percent Auto 1.1 % (0.0-7.0); Hematocrit 32.7 % (37.0-53.0); Hemoglobin* 10.6 gm/dL (13.5-17.5); Immature Granulocytes Abs Auto 0.02 K/uL (0.00-0.30); Immature Granulocytes Pct Auto 0.4 %; Lymphocytes Percent Auto 4.8 % (20-44); Mean Corpuscular HGB Conc 32 gm/dL (32-36); Mean Corpuscular Hemoglobin 27 pg (26-34); Mean Corpuscular Volume 83 fL (80-100); Neutrophils Percent Auto 80.3 % (42.0-72.0); Platelet Count* 204 K/uL (140-440); RDW Coefficient of Variation % 15.4 % (11.5-15.5); Red Blood Count 3.93 m/uL (4.30-5.90); White Blood Count* 5.39 K/uL (4.50-11.00)
[2023-01-18 04:42] LABS: Slide Review Reflex No
[2023-01-18 05:15] VITALS: BP 99/70; PULSE 96; RESP 18; TEMP 36.8; O2SAT 96
[2023-01-18] MEDS: HEPARIN 500 UNIT/5 ML SYRINGE IVF (05:16)
== END 2023-01-18 05:46 | disposition home or self-care (01) ==
PROVIDERS: Emergency Provider Family Medicine; PCP Family Medicine
DX: U07.1 COVID-19 (principal); C25.9 Malignant neoplasm of pancreas, unspecified
CPT/HCPCS: 36415; 80048; 80076; 81001; 83605; 83690; 83735; 85025; 87040; 87631; 96374; 96375; 99284; 99285; A9270; J1170; J1642; J2405; J7030

== ENCOUNTER 2023-02-25 15:17 | Emergency (ER) | payer MEDICARE, OTHER, SELFPAY ==
[2023-02-25 15:24] VITALS: BP 119/72; RESP 18; TEMP 37.2; O2SAT 98; BMI 22.0
--- NOTE | 2023-02-25 15:46 | ED.GENADULT ---
HPI - General Adult General Time Seen by Provider: 15:46 Date Seen: 02/25/23 Chief complaint: Unspecified Complaint, Adult Stated complaint: Jondis, Dehydrated Time Seen by Provider: 02/25/23 15:20 Source: patient Mode of arrival: ambulatory Limitations: no limitations History of Present Illness HPI narrative: Patient is a 57 year white male with unfortunate stage IV pancreatic cancer. He is doctoring at Oncology at [facility] in [place]. He sees apparently Dr. Yuri White. The patient has had no fever, chills, chest pain, shortness of breath, edema. But he does feel dehydrated. He has had some trouble occasionally taking fluids or food. He denies any specific pain symptoms. He basically wants some IV fluid and check his labs to see how he is doing. His thinks that he might be slightly more yellow in jaundice that he has been in the past. Related Data Home Medications Medication Instructions Recorded Confirmed gabapentin 300 mg capsule mg 03/14/22 hydromorphone 4 mg tablet mg 03/14/22 cijmiz-cepqpqre-lodcouu cap PO 03/14/22 24,000-76,000-120,000 unit capsule,delayed rel (Creon) lorazepam 0.5 mg tablet mg 03/14/22 ondansetron 8 mg disintegrating mg 03/14/22 tablet pantoprazole 40 mg tablet,delayed mg PO 03/14/22 release trazodone 50 mg tablet mg 03/14/22 baclofen 10 mg tablet 10 mg PO DAILY 01/27/23 01/27/23 Previous Rx's Medication Instructions Recorded hydromorphone 4 mg tablet 4 mg PO Q6H PRN pain #4 tabs 06/18/22 (Dilaudid) enoxaparin 80 mg/0.8 mL 80 mg (0.8 mL) subcut Q12H #8 mL 12/16/22 subcutaneous syringe (Lovenox) Allergies Allergy/AdvReac Type Severity Reaction Status Date / Time prochlorperazine Allergy Verified 01/27/23 17:14 [From Compazine] Review of Systems Status of ROS: Reports: 6 or more systems reviewed and unremarkable except as noted in History and below [facility] Medical History Portal vein thrombosis ?I81 - Portal vein thrombosis (ICD-10) Pancreatic cancer ?C25.9 - Malignant neoplasm of pancreas, unspecified (ICD-10) COVID ?U07.1 - COVID-19 (ICD-10) Social History Smoking Status: Never smoker Do you use any of these nicotine containing products: None, Vaping Products and Other Second hand tobacco smoke exposure: No How often do you have a drink containing alcohol: never How often do you have six or more drinks on one occasion: Never AUDIT-C Alcohol total score: 0 Non-prescribed substance use: marijuana (any form) service: No Exam Narrative: Exam Narrative: Objective: Vital signs unremarkable patient is alert orient x3 HEENT shows just minimal scleral jaundice but I do not know what he is like at baseline. Rest of HEENT unremarkable and dry mucous membranes in the mouth pulses regular he denies abdominal pain He does have a port in his right shoulder area, neurologic is grossly nonfocal Const: Vital Signs, click to edit/add: Vital Signs - 24 hr 02/25/23 15:24 02/25/23 17:40 Temperature 98.9 F Pulse Rate [Pulse Oximeter] 82 Respiratory Rate 18 20 Blood Pressure [Ri ght Upper Arm] 119/72 91/54 L Pulse Oximetry 98 97 Oxygen Delivery Me thod Room Air Room Air Course Vital Signs Vital signs: Initial Vital Signs Temperature 98.9 F 02/25/23 15:24 Temperature Source Temporal Artery Scan 02/25/23 15:24 Respiratory Rate 18 02/25/23 15:24 Blood Pressure 119/72 02/25/23 15:24 Blood Pressure Mean 87 02/25/23 15:24 Blood Pressure Position Sitting 02/25/23 15:24 Pulse Oximetry 98 02/25/23 15:24 Oxygen Delivery Method Room Air 02/25/23 15:24 Vital Signs Temperature 98.9 F 02/25/23 15:24 Respiratory Rate 18 02/25/23 15:24 Blood Pressure 119/72 02/25/23 15:24 Pulse Oximetry 98 02/25/23 15:24 Oxygen Delivery Method Room Air 02/25/23 15:24 Temperature 98.9 F 02/25/23 15:24 Pulse Rate 82 02/25/23 17:40 Respiratory Rate 20 06/17/23 17:40 Blood Pressure 91/54 L 02/25/23 17:40 Pulse Oximetry 97 02/25/23 17:40 Oxygen Delivery Method Room Air 02/25/23 17:40 Medical Decision Making MDM Narrative Medical decision making narrative: Mr. Campbell is a 49 year white male with stage IV pancreatic cancer, currently undergoing palliative chemotherapy through the oncology department at [facility] in [place]. He has intermittent trouble with dehydration and I think clearly he might have some of that now, he is really requesting blood work done and IV fluids. Will give him 2 L of saline through his port common will check his basic labs including LFTs. We will make a copy of his labs and send them with him for his oncology appointment. I suspect to be able to return home after he gets his IV fluids completed and then continue his home meds and return as needed. Follow up for his oncology visits as plan. Lab Data Labs: Lab Results 02/25/23 Range/Units 15:50 WBC 4.26 L (4.50-11.00) K/uL RBC 3.53 L (4.30-5.90) m/uL Hgb 9.3 L (13.5-17.5) gm/dL Hct 29.2 L (37.0-53.0) % MCV 83 (80-100) fL MCH 26 (26-34) pg MCHC 32 (32-36) gm/dL RDW Coeff of Félix 17.9 H (11.5-15.5) % Plt Count 133 L (140-440) K/uL Neut % (Auto) 74.2 H (42.0-72.0) % Lymph % (Auto) 7.3 L (20-44) % [place] % (Auto) 16.7 H (0.0-11.0) % Eos % (Auto) 0.9 (0.0-7.0) % Baso % (Auto) 0.2 (0.0-3.0) % Neut # (Auto) 3.20 (1.7-7.0) K/uL Lymph # (Auto) 0.30 L (0.90-2.90) K/uL [place] # (Auto) 0.70 (0.00-0.90) K/UL Eos # (Auto) 0.00 (0.00-0.50) K/uL Baso # (Auto) 0.00 (0.00-0.30) K/uL Sodium 131 L (135-149) mmol/L Potassium 3.6 (3.6-5.1) mmol/L Chloride 99 (96-114) mmol/L Carbon Dioxide 29 (20-32) mmol/L BUN 13 (7-30) mg/dL Creatinine 0.7 (0.5-1.5) mg/dL Estimated Creat Clear 107.01 Estimated GFR 107 ml/min Glucose 135 H (60-115) mg/dL Calcium 8.6 (8.4-10.6) mg/dL Total Bilirubin 5.7 H (0.1-1.5) mg/dL Direct Bilirubin 4.6 H (0.0-0.5) mg/dL AST 140 H (12-35) U/L ALT 221 H (4-50) U/L Alkaline Phosphatase 780 H (40-150) U/L Total Protein 7.4 (6.0-8.3) g/dL Albumin 3.5 (3.3-5.0) g/dL Discharge Plan Discharge Clinical Impression: H/O pancreatic cancer, Dehydration Patient Disposition: Home w/ Parent or Adult Condition: Improved Additional Instructions: Light activity, fluids, continue home medications, update oncology tomorrow or Monday, return to ED as needed. Activity Level: Light activity Discharge Diet: Regular Prescriptions: No Action gabapentin 300 mg capsule hydromorphone 4 mg tablet trazodone 50 mg tablet Patient Comments: TAKE 1-2 TABLETS BY MOUTH AT BEDTIME. TAKE 50MG DAILY AT BEDTIME FOR ATLEAST 7 DAYS. MAY INCREASE TO 100MG IF NEEDED. ondansetron 8 mg tablet,disintegrating lorazepam 0.5 mg tablet pantoprazole 40 mg tablet,delayed release (DR/EC) PO Patient Comments: TAKE 1 TABLET BY MOUTH EVERY MORNING BEFORE BREAKFAST. Creon 24,000-76,000 -120,000 unit capsule,delayed release(DR/EC) PO Patient Comments: TAKE 2 CAPSULES BY MOUTH WITH MEALS AND 1-2 CAPSULES WITH SNACKS enoxaparin [Lovenox] 80 mg/0.8 mL syringe 80 mg subcut Q12H Qty: 8 1RF hydromorphone [Dilaudid] 4 mg tablet 4 mg PO Q6H PRN (Reason: pain) Qty: 4 0RF baclofen 10 mg tablet 10 mg PO DAILY Follow Up/Referrals: Adrian Mills MD [Primary Care Provider] - Stand Alone Forms: [employer] Info Instructions
[2023-02-25 16:04] LABS: Basophils Percent Auto 0.2 % (0.0-3.0); Eosinophils Percent Auto 0.9 % (0.0-7.0); Hematocrit 29.2 % (37.0-53.0); Hemoglobin* 9.3 gm/dL (13.5-17.5); Immature Granulocytes Pct Auto 0.7 %; Lymphocytes Percent Auto 7.3 % (20-44); Mean Corpuscular HGB Conc 32 gm/dL (32-36); Mean Corpuscular Hemoglobin 26 pg (26-34); Mean Corpuscular Volume 83 fL (80-100); Monocytes Percent Auto 16.7 % (0.0-11.0); Neutrophils Percent Auto 74.2 % (42.0-72.0); Platelet Count* 133 K/uL (140-440); RDW Coefficient of Variation % 17.9 % (11.5-15.5); Red Blood Count 3.53 m/uL (4.30-5.90); White Blood Count* 4.26 K/uL (4.50-11.00)
[2023-02-25] MEDS: 0.9 % SODIUM CHLORIDE 1000 ml 1,000 ML 6000 ML IV ×2 (16:04→16:56)
[2023-02-25 16:15] LABS: Slide Review Reflex No
[2023-02-25 16:18] LABS: Chloride* 99 mmol/L (96-114)
[2023-02-25 16:19] LABS: Albumin* 3.5 g/dL (3.3-5.0); Potassium* 3.6 mmol/L (3.6-5.1); Sodium* 131 mmol/L (135-149)
[2023-02-25 16:21] LABS: Creatinine* 0.7 mg/dL (0.5-1.5); Est. Creatinine Clearance* 107.01; Estimated Glomerular Filt Rate 107 ml/min
[2023-02-25 16:22] LABS: Bilirubin Direct* 4.6 mg/dL (0.0-0.5); Bilirubin Total* 5.7 mg/dL (0.1-1.5); Blood Urea Nitrogen* 13 mg/dL (7-30); Calcium* 8.6 mg/dL (8.4-10.6); Carbon Dioxide* 29 mmol/L (20-32); Glucose* 135 mg/dL (60-115); Total Protein* 7.4 g/dL (6.0-8.3)
[2023-02-25 16:23] LABS: Alanine Aminotransferase* 221 U/L (4-50); Alkaline Phosphatase* 780 U/L (40-150); Aspartate Amino Transferase* 140 U/L (12-35)
[2023-02-25 17:40] VITALS: BP 91/54; PULSE 82; RESP 20; O2SAT 97
[2023-02-25] MEDS: HEPARIN 500 UNIT/5 ML SYRINGE IVF (18:01)
== END 2023-02-25 18:01 | disposition home or self-care (01) ==
LOC: ED 16:11
PROVIDERS: Emergency Provider Family Medicine; PCP Family Medicine
DX: E86.0 Dehydration (principal); C25.9 Malignant neoplasm of pancreas, unspecified
CPT/HCPCS: 36415; 80048; 80076; 85025; 96360; 99284; J1642; J7030